=== PATIENT | female | born 1945 | race Caucasian/White ===

== ENCOUNTER 2017-07-18 23:32 | Inpatient (IN) | END 2017-07-26 14:32 | DRG 207 ==

== ENCOUNTER 2017-07-29 14:03 | Day surgery (SDC) | END 2017-07-30 00:24 ==

== ENCOUNTER 2017-08-26 09:07 | Day surgery (SDC) | END 2017-08-28 13:46 | disposition other institution (70) ==

== ENCOUNTER → 2017-09-01 | Day surgery (SDC) | END | disposition home or self-care (01) ==

== ENCOUNTER 2017-09-16 11:22 | Inpatient (IN) | END 2017-09-30 21:30 | DRG 335 ==

== ENCOUNTER 2017-11-26 23:53 | Inpatient (IN) | END 2017-12-17 16:18 | DRG 760 ==

== ENCOUNTER 2017-12-23 12:55 | Inpatient (IN) | END 2018-01-02 16:24 | DRG 870 ==

== ENCOUNTER 2018-05-06 13:48 | Inpatient (IN) | payer MEDICARE, BC, MEDICAID ==
[~2018-05-06] VITALS: Ht 167.6 cm; Wt 89.7 kg
[~2018-05-06 13:48] MED LIST: ACET325S PO; ALBU2.5V3 NEB; AMIO200T4 GTB; AMLO2.5T78 PO; ASC500 GTB; ATILIQ IV*; ATOR10TA65 PO; BETH25TA GTB; BISA-57 GTB; BUDE0.5A INHALATION; CHLO1TOW TP; CLON0.5T14 GTB; CLOT15CR62 TOP; DOCU50LI23 GTB; ESCI10TA48 GTB; FER325 GTB; FERR220S13 GTB; FURO40SO4 IV*; HYDR-4011 GTB; LANS30CA GTB; MEGE625O PO; METO25TA4 PO; MORP10SO GTB; MORP10SO PO; MUCO4 NEB; MULT-275 PO; NA P230E RC; NITR0.4T32 SL; NYST1POW22 TOPICAL; ONDA4SOL IV*; QUET100T32 GTB; SAN30GM TOP; SIME40DR35 GTB; VLP250480 GTB; ZINC220T GTB; [UNRECOGNIZED DRUG - CODE] IV*; [UNRECOGNIZED DRUG - OTHER] IV
[2018-05-06] MEDS ORDERED: SODIUM CHLORIDE 0.9% 1L BAG IV* STA (14:35)
[2018-05-06] MEDS ORDERED: CEFEPIME 2GM/50 ML (PMX) 50 ML IVPB STA (14:35)
[2018-05-06] MEDS ORDERED: VANCOMYCIN 1 GM (PMX) 250 ML IVPB ONE (15:00)
[2018-05-06] MEDS ORDERED: ASPI-903 GTB (16:37)
[2018-05-06] MEDS ORDERED: CLON-379 GTB (16:38)
[2018-05-06] MEDS ORDERED: VALP250S3 GTB (16:40)
[2018-05-06] MEDS ORDERED: FAMO20TA18 GTB (16:46)
[2018-05-06] MEDS ORDERED: IPRA3AMP29 INHALATION ×2 (16:48→16:49)
[2018-05-06] MEDS ORDERED: LIDO700A45 TP (16:50)
[2018-05-06] MEDS ORDERED: ATILIQ IV* (16:52)
[2018-05-06] MEDS ORDERED: MULT-105 GTB (16:53)
[2018-05-06] MEDS ORDERED: METO-448 GTB (16:53)
[2018-05-06] MEDS ORDERED: ONDA4SOL GTB (16:56)
[2018-05-06] MEDS ORDERED: EPOE200014 IJ (16:58)
[2018-05-06] MEDS ORDERED: PROT946L GTB (16:59)
[2018-05-06] MEDS ORDERED: QUET100T GTB (17:00)
[2018-05-06] MEDS ORDERED: ASC500 GTB (17:01)
[2018-05-06] MEDS ORDERED: DICL100G37 TOP (17:01)
[2018-05-06] MEDS ORDERED: ZINC220T GTB (17:03)
--- NOTE | 2018-05-06 17:53 | ERD ---
ER Documentation Chief Complaint Chief Complaint BIB private ambulance, kamlesh kaur; sent by PMD d/t abnormal BUN/crea/ HPI 73-year-old female brought to the emergency department by private ambulance from her care facility for evaluation of abnormal lab tests that included an elevated BUN and creatinine and abnormal urinalysis. Patient is essentially nonverbal and no further history is available. Transfer paper work indicates no further history. ROS All systems reviewed and are negative except as per history of present illness. Medications Home Meds Reported Medications Zinc Sulfate* (Zinc Sulfate*) 220 Mg Tablet, 220 MG GTB DAILY, TAB START DATE 05/04/18, END DATE 06/03/18 05/06/18 Diclofenac Sodium* (Voltaren* Gel) 1% -100 Gm Gel, 2 GM TOP TID, #1 TUB 05/06/18 Ascorbic Acid (Vitamin C) 500 Mg Tab, 500 MG GTB DAILY, TAB 05/06/18 Quetiapine Fumarate* (Seroquel*) 100 Mg Tablet, 600 MG GTB HS, #30 TAB 05/06/18 Protein Supplement (Promod) 946 Ml Liquid, 30 ML GTB BID 05/06/18 Epoetin Zen (Procrit) 20,000 Unit/1 Ml Vial, 18752 UNIT IJ Q TUE for FOR ANEMIA OF CKD, VIAL HOLD IFHGB IS EQUAL OR GREATER THAN 11 05/06/18 Ondansetron Hcl* (Ondansetron Hcl* Liq) 4 Mg/5 Ml Solution, 4 MG GTB Q6H PRN for NAUSEA AND/OR VOMITING, ML 05/06/18 Multivitamin with Minerals (Multivitamins with Minerals) 1 Each Tablet, 1 EACH GTB QAM, TAB 05/06/18 Metoprolol Tartrate* (Lopressor*) 25 Mg Tab, 25 MG GTB BID, #60 TAB HOLD FOR SBP<110 OR HR<60 05/06/18 Lorazepam* (Ativan* Intensol) 2 Mg/Ml Soln, 0.5 MG IV* Q6H PRN for ANXIETY, #1 BOTTLE START DATE 04/02/18, END DATE 06/01/18 05/06/18 Lidocaine (Lidocaine) 1 Each Adh..patch, 1 EACH TP Q12H 5% 05/06/18 Ipratropium-Albuterol (Ipratropium-Albuterol) 0.5-3 Mg/3 Ml Ampul.neb, 3 ML INHALATION Q6 PRN for BRONCHOSPASM, #30 VIAL 05/06/18 Ipratropium-Albuterol (Ipratropium-Albuterol) 0.5-3 Mg/3 Ml Ampul.neb, 3 ML INHALATION Q2H PRN for BRONCHOSPASM, #30 VIAL 05/06/18 Famotidine* (Famotidine*) 20 Mg Tablet, 20 MG GTB BID, #60 TAB 05/06/18 Valproic Acid* (Depakene*) 250 Mg/5 Ml Udc Syrup, 100 MG GTB QHS, ML 05/06/18 Clonidine Hcl* (Clonidine Hcl*) 0.1 Mg Tab, 0.1 MG GTB Q6 PRN for NEEDED, TAB FOR SBP>160 OR DBP>90 05/06/18 Aspirin* (Aspirin* Chew) 81 Mg Tab.chew, 81 MG GTB DAILY, TAB.CHEW 05/06/18 Discontinued Reported Medications Docusate Sodium* (Colace* Liq) 50 Mg/5 Ml Liquid, 100 MG GTB BID, EA 12/29/17 Na Phos,M-B/Na Phos,Di-Ba (Fleet Enema Extra) 230 Ml Enema, 230 ML RC PRN for CONSTIPATION, ENEMA 12/29/17 Bisacodyl* (Dulcolax*) 5 Mg Tablet.dr, 10 MG GTB DAILY PRN for CONSTIPATION, TAB 12/29/17 Docusate Sodium* (Colace* Liq) 50 Mg/5 Ml Liquid, 100 MG GTB BID, EA 12/29/17 Ferrous Sulfate* (Ferrous Sulfate*) 325 Mg Tabec, 330 MG GTB DAILY, TAB 12/29/17 Zinc Sulfate* (Zinc Sulfate*) 220 Mg Tablet, 220 MG GTB DAILY, TAB 12/29/17 Ascorbic Acid (Vitamin C) 500 Mg Tab, 500 MG GTB DAILY, TAB 12/29/17 Multivitamin with Minerals (Daily Vitamin Formula-Minerals) 1 Each Tablet, 1 EACH PO DAILY, TAB 12/29/17 Megestrol Acetate* (Megace ES*) 625 Mg/5 Ml Oral.susp, 400 MG PO DAILY, ML 12/29/17 Atorvastatin (Atorvastatin) 10 Mg Tablet, 20 MG PO QHS, #30 TAB 12/29/17 Amlodipine Besylate* (Amlodipine Besylate*) 2.5 Mg Tablet, 2.5 MG PO BID, #30 TAB HOLD FOR SBP < 110 OR HR < 60 12/29/17 Ondansetron Hcl* (Ondansetron Hcl* Liq) 4 Mg/5 Ml Solution, 4 MG IV* Q6H PRN for NAUSEA AND/OR VOMITING, ML 08/26/17 Morphine Sulfate* (Morphine* Liq) 10 Mg/5 Ml Solution, 6 MG GTB Q4H PRN for PAIN, ML 08/26/17 Morphine Sulfate* (Morphine* Liq) 10 Mg/5 Ml Solution, 3 MG PO Q4H PRN for PAIN, ML 08/26/17 Metoprolol Tartrate* (Lopressor*) 25 Mg Tablet, 25 MG PO BID, #60 TAB 08/26/17 Methylprednisolone Sod Succ (Solu-Medrol) 10 Mg/Ml Soln, 20 MG IV* DAILY 08/26/17 Lorazepam* (Ativan* Intensol) 2 Mg/Ml Soln, 0.5 MG IV* Q4H PRN for ANXIETY, #1 BOTTLE 08/26/17 Lansoprazole* (Lansoprazole*) 30 Mg Capsule.dr, 30 MG GTB BID, CAP 08/26/17 Hydrocodone/Acetaminophen (Ducor 5-325 Tablet) 1 Each Tablet, 1 EACH GTB Q4 PRN for PAIN, TAB 08/26/17 Furosemide* (Lasix* Liq) 40 Mg/4 Ml Solution, 40 MG IV* DAILY, #120 ML 08/26/17 Chlorhexidine Gluconate (Chlorhexidine Gluconate) 1 Each Towelette, 1 EACH TP PRN PRN for CENTRAL LINE, TOWELETTE 08/26/17 Bethanechol Chloride* (Bethanechol Chloride*) 25 Mg Tablet, 25 MG GTB TID, TAB 08/26/17 Acetylcysteine* (Mucomyst*) 4 Ml Soln, 2 ML NEB BID, EA 08/26/17 Valproic Acid* (Valproic Acid* Liq) 250 Mg/5 Ml Syrup, 1000 MG GTB QHS, ML 07/18/17 Simethicone ( GAS RELIEF) 40 Mg/0.6 Ml Drops.susp, 40 MG GTB Q4H 07/18/17 Quetiapine Fumarate* (Quetiapine Fumarate*) 100 Mg Tablet, 600 MG GTB HS, TAB 07/18/17 Nystatin (Nystatin Powder) 1 Each Powder.ea., 1 APPLIC TOPICAL DAILY, #1 BOTTLE 07/18/17 Nitroglycerin* (Nitroglycerin* SL) 0.4 Mg Tab.subl, 0.4 MG SL Q5MIN PRN for CHEST PAIN, BOTTLE 07/18/17 Hydralazine Hcl* (Apresoline* Pediatric IV Syringe) 1 Mg/Ml Soln, 5 MG IV Q4H PRN for NEEDED, EA 07/18/17 Ferrous Sulfate* (Ferrous Sulfate*) 220 Mg/5 Ml Solution, 300 MG GTB BID, ML 07/18/17 Escitalopram Oxalate* (Escitalopram Oxalate*) 10 Mg Tablet, 10 MG GTB DAILY, #30 TAB 07/18/17 Collagenase* (Santyl*) 30 Gm Oint..gm., 1 APPLIC TOP .SOILED PRN for SOILED, #1 TUB 07/18/17 Clonazepam* (Clonazepam*) 0.5 Mg Tablet, 0.25 MG GTB BID, TAB 07/18/17 Budesonide* (Budesonide*) 0.5 Mg/2 Ml Ampul.neb, 0.5 MG INHALATION Q12H, AMP 07/18/17 Betamethasone-Clotrimazole* (Lotrisone*) 15 Gm Cr, 1 APPLIC TOP BID, TUB 07/18/17 Amiodarone Hcl* (Amiodarone Hcl*) 200 Mg Tablet, 100 MG GTB DAILY, #30 TAB HOLD IF SBP <110 OR HR < 60 07/18/17 Albuterol Sulfate* (Albuterol Sulfate* Neb) 0.083%-3 Ml Neb, 2.5 MG NEB NEEDED PRN for WHEEZING AND SOB, #30 VIAL 07/18/17 Albuterol Sulfate* (Albuterol Sulfate* Neb) 0.083%-3 Ml Neb, 2.5 MG NEB Q4H PRN for WHEEZING AND SOB, #30 VIAL 07/18/17 Acetaminophen* (Acetaminophen* Susp) 325 Mg/10.15 Ml Solution, 650 MG PO Q4H PRN for NEEDED, ML 07/18/17 Allergies Allergies: Coded Allergies: shellfish derived (Unverified Allergy, Unknown, 05/06/18) PMhx/Soc History of Surgery: Yes (unknown) Anesthesia Reaction: No Hx Alcohol Use: No (unknown) Hx Substance Use: No (unknown) Hx Tobacco Use: No (unknown) Smoking Status: Unknown if ever smoked FmHx Unknown at this time Physical Exam Vitals Vital Signs Date Temp Pulse Resp B/P (MAP) Pulse Ox O2 O2 Flow FiO2 Time Delivery Rate 05/06/18 107 25 100/48 100 Nasal 4.0 17:09 (65) Cannula 05/06/18 Nasal 4 14:59 Cannula 05/06/18 98.7 95 20 111/55 98 14:26 (73) Physical Exam General: Frail, bed bound, ill appearing HEENT: Mucous membranes dry, sclera nonicteric Neck: Tracheostomy ostomy patent. No inflammatory changes noted. No JVD. Cardiovascular: Regular rate and rhythm, no murmurs rubs or gallops. Lungs: Transmission of upper airway sounds. Abdomen: Soft with G-tube appreciated. Nontender to palpation. Bowel sounds noted. : Diaper in place and incontinent. Extremities: Atrophic but atraumatic with no edema, cyanosis or clubbing. Neurologic: Motor strength diminished in all 4 extremities but otherwise nonfocal. Patient is essentially nonverbal with no significant insight Skin: Skin breakdown noted per nursing note. Result Diagram: 05/06/18 1449 05/06/18 1449 Results 24 hrs Laboratory Tests Test 05/06/18 14:46 05/06/18 14:49 POC Venous Lactate 0.8 mmol/L White Blood Count 12.5 10^3/ul Red Blood Count 3.14 10^6/ul Hemoglobin 10.8 g/dl Hematocrit 32.7 % Mean Corpuscular Volume 104.1 fl Mean Corpuscular Hemoglobin 34.4 pg Mean Corpuscular Hemoglobin Concent 33.0 g/dl Red Cell Distribution Width 13.5 % Platelet Count 287 10^3/UL Mean Platelet Volume 10.0 fl Immature Granulocytes % 1.000 % Neutrophils % 87.2 % Lymphocytes % 3.2 % Monocytes % 7.5 % Eosinophils % 0.9 % Basophils % 0.2 % Nucleated Red Blood Cells % 0.0 /100WBC Immature Granulocytes # 0.120 10^3/ul Neutrophils # 10.9 10^3/ul Lymphocytes # 0.4 10^3/ul Monocytes # 0.9 10^3/ul Eosinophils # 0.1 10^3/ul Basophils # 0.0 10^3/ul Nucleated Red Blood Cells # 0.0 10^3/ul Prothrombin Time 13.7 Sec Prothrombin Time Ratio 1.1 INR International Normalized Ratio 1.04 Activated Partial Thromboplast Time 43.4 Sec Sodium Level 122 mmol/L Potassium Level 5.2 mmol/L Chloride Level 89 mmol/L Carbon Dioxide Level 13 mmol/L Anion Gap 20 Blood Urea Nitrogen 172 mg/dl Creatinine 3.05 mg/dl Est Glomerular Filtrat Rate mL/min mL/min Glucose Level 84 mg/dl Calcium Level 9.6 mg/dl Total Bilirubin 0.0 mg/dl Direct Bilirubin 0.00 mg/dl Indirect Bilirubin 0.0 mg/dl Aspartate Amino Transf (AST/SGOT) 43 IU/L Alanine Aminotransferase (ALT/SGPT) < 6 IU/L Alkaline Phosphatase 145 IU/L Troponin I 0.058 ng/ml Total Protein 7.1 g/dl Albumin 3.1 g/dl Globulin 4.00 g/dl Albumin/Globulin Ratio 0.77 Current Medications Medications Dose Sig/[place] Start Time Status Last (Trade) Ordered Route PRN Stop Time Admin Dose Reason Admin Sodium 2,550 ml BOLUS OVER 2 05/06/18 DC 05/06/18 Chloride HOURS STAT 14:35 14:49 (NS) IV* 05/06/18 14:37 Cefepime HCl 50 ml @ ONCE STAT 05/06/18 DC 05/06/18 100 mls/hr IVPB 14:35 14:49 05/06/18 15:04 Vancomycin 250 ml @ ONCE ONCE 05/06/18 DC 05/06/18 HCl 125 mls/hr IVPB 15:00 15:31 05/06/18 16:59 Procedures/MDM Patient was taken to a room, seen and evaluated. Comfort measures were initiated. A code sepsis was initiated. Diagnostic tests were ordered and reviewed. 3 LEAD RHYTHM STRIP: Sinus tachycardia EK lead EKG reviewed by myself: Sinus tachycardia Normal [place] and intervals No ST elevation, depression, or T wave inversion Impression: Tachycardic without obvious ischemic changes RADIOLOGY: Reviewed with the radiologist CONSULTATION: Dr. Eisenberg was notified for admission REEVALUATION: 1540: Diagnostic tests were appreciated and arrangements were made for admission. Garza placed drained thick purulent fluid. MEDICAL DECISION MAKIN-year-old female presents the emergency department in acute renal failure secondary to what appears to be a urosepsis. Patient's lactate is less than 2, but she shows evidence of significant dehydration and will require admission to the hospital for hydration, antibiotics and further supportive care. Sepsis Documentation: Infectious source: urinary tract infection End organ damage indicated by: low blood pressure Cr > 2.0 SEPSIS MANAGEMENT Time of recognition of sepsis: Upon arrival. Time of recognition of severe sepsis: No severe sepsis at this time. Time of recognition of septic shock: No septic shock at this time. 3 HOUR BUNDLE Blood cultures x 2 before broad-spectrum antibiotics: Yes 30 ml/kg NS bolus completed Initial lactate noted Repeat lactate pending SEPTIC SHOCK ASSESSMENT: No lactic acid > 4.0 No persistent hypotension (SBP < 90 or 40 mmHg drop, MAP < 65) despite 30 mL/kg IV fluid bolus VOLUME REASSESSMENT FOR SEPTIC SHOCK: Reevaluation Time: 1745 Vital signs noted per nursing note Heart regular rate & rhythm Lungs no crackles Skin warm & dry Cap Refill less than 2 seconds Peripheral pulses radially present PERSISTENT HYPOTENSION TREATMENT: Comfort care no Central line: PICC requests Vasopressor started not required as blood pressure initially seemed responsive to IV fluid. This will be reassessed. CRITICAL CARE Critical care time 35 minutes Emergent fluid management while maintaining close respiratory support. Provisio n of immediate and broad-spectrum antibiotic therapy. Simultaneous assessment for possible sources in order to direct targeted therapy. Consideration for invasive and chemical support to prevent cardiopulmonary collapse. Critical care time is independent of procedures performed. Departure Diagnosis: Primary Impression: Severe sepsis Additional Impressions: Renal failure UTI (urinary tract infection) Condition: Serious ALLYSSA MARTINEZ May 06, 2018 17:52
[2018-05-06] MEDS ORDERED: LIDOCAINE 1% (MPF) 5 ML VIAL SC ONE (18:00)
[2018-05-06] MEDS ORDERED: SOD CHLORIDE 0.9% 1,000 ML IV ONE (18:00)
[2018-05-06 23:00] VITALS: BMI 31.3
[2018-05-06 23:15] VITALS: PULSE 118; PULSE 119; RESP 29
[2018-05-06 23:30] VITALS: PULSE 115; RESP 19
[2018-05-06] MEDS ORDERED: ONDANSETRON (2 MG/2.5 ML PO SYG) GTB PRN (23:30)
[2018-05-06] MEDS ORDERED: LORAZEPAM (2 MG/ML PO SYG) PEG PRN (23:30)
[2018-05-06] MEDS ORDERED: EPOETIN ALFA 20000 UNIT IJ SCH (23:30)
[2018-05-06 23:45] VITALS: PULSE 114; RESP 21
[2018-05-07] VITALS (62 sets, daily range): BP systolic 71–249; BP diastolic 34–209; PULSE 106–170; RESP 16–30
[2018-05-07] MEDS ORDERED: NORepinephrine 8MG/250 ML (PMX 250 ML IV SCH
[2018-05-07] MEDS ORDERED: ONDANSETRON 4 MG TAB GTB PRN (00:15)
[2018-05-07] MEDS: SOD CHLORIDE 0.9% 1,000 ML IV SCH ×4 (00:24→22:01)
--- NOTE | 2018-05-07 01:28 | HP ---
DATE OF ADMISSION: 05/06/2018 CHIEF COMPLAINT: Generalized weakness and lethargy. HISTORY OF PRESENT ILLNESS: The patient is a 73-year-old female well known to me from previous several admissions. The patient has a complex medical history including history of COPD, respiratory failure, who was recently decannulated at [facility] respiratory unit and was doing reasonably well; however, the patient was noted to be increasingly sleepy as well as had generalized weakness. The patient was less interactive. The patient was sent to [facility] ER where she was noted to have sodium of 122, BUN was 172, creatinine of 3. The patient's baseline sodium back in 01/2019 was 139. BUN was 42, creatinine was 1.3. The patient recently had acute on chronic kidney disease for which she did receive IV fluid. The patient did not have any vomiting, no reported fever or chills. The patient was hypertensive and tachycardic in ER, and received IV fluid bolus. The patient's lactic acid, however, came back as only 0.7. The patient's urine was cloudy and apparently has pyuria. The patient also had a white count of 12.5 with 87% neutrophil. The patient is being admitted for further evaluation and management. The patient initially was lethargic; however, her mental status improved with IV fluid and she is now back to her baseline mental status. The patient is awake, alert, and follows simple commands. No reported abdominal pain. No reported vomiting. No reported recent seizures. There is no significant leg edema. The patient does have generalized weakness and spends most of time in her bed. No reported agitation. The patient, in addition to above, also has history of paroxysmal atrial fibrillation. The patient also had a history of positive gastrointestinal bleed with a high CEA, and had colonoscopy later in 2018. There was no colon mass. The patient did have multiple diverticula. The rest of the history is unremarkable. PAST MEDICAL HISTORY: Past medical history is extensive. The patient back in July 2017, had a left lower extremity large hematoma and underwent excisional debridement and evacuation of large hematoma. The patient also has history of recurrent HCAP and possible history of interstitial lung disease. The patient is also status post exploratory laparotomy by Dr. Villatoro for torsion of small bowel around dense adhesions causing multiple obstructive points. 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 The patient, however, declined surgery at that time. The patient's subsequent echocardiogram has not revealed any thrombus. The patient did receive several months of Voriconazole at that time. The patient also had right toes dry gangrene. The patient's medical history is also positive for paroxysmal atrial fibrillation and history of diastolic congestive heart failure. The patient's arterial studies last year only revealed mild stenosis. PAST SURGICAL HISTORY: The patient has history of tracheostomy and G-tube placement and some of past surgical history had been explained in past medical history. SOCIAL HISTORY: Ex-smoker. ALLERGIES: SHELLFISH. FAMILY HISTORY: Noncontributory for patient's condition. PHYSICAL EXAMINATION GENERAL: The patient currently awake and responsive with generalized weakness. VITAL SIGNS: At the time of presentation, temperature 98.7, pulse 90, respirations 20, blood pressure 111/55, O2 saturation 97% on 4 liters on nasal cannula; however, during her stay in ER, her blood pressure was down to 77 at one time. HEENT: Atraumatic, normocephalic. Conjunctivae and lids are normal. Oropharynx clear. Nose and ears normal. NECK: Supple. No mass or thyromegaly. CHEST: Fairly clear. No use of accessory muscles. CARDIOVASCULAR: S1, S2 normal. Regular rate and rhythm. ABDOMEN: Soft, nondistended and nontender. G-tube in place. EXTREMITIES: No leg edema. NEUROLOGIC: The patient is awake, alert, follows simple commands. Has weakness in all extremities. SKIN: Without acute rash. The patient does have some perineal excoriation as well as right foot excoriation. LABORATORY DATA: Laboratories done today, WBC 12.5, hemoglobin 10.8, platelet 287. Chemistry: Sodium 122, potassium 5.2, BUN 172, creatinine 3, glucose 84. calcium 9.6, AST 43, ALT less than 6, alkaline phosphatase 145, albumin 3.1. IMPRESSION AND PLAN: 1. Septic shock likely from UTI : The patient will be admitted in ICU. The patient has received more than 3 liters of IV fluid in the ER. We will continue normal saline at 125cc an hour. The patient will be started on vasopressor if blood pressure remains low. The patient has received IV vancomycin and cefepime in the ER. We will continue cefepime for now until urine c/s is back . Will also request Dr. gorman for ID consult 2. Acute on chronic kidney disease. We will continue trial of IV fluids. Nephrology consult from has been requested 3. Hyponatremia. Continue normal saline. Hold off on diagnostic studies for low Na as patient has received more than 3 L of NS. Nephro input in pending 4. Will also obtain urine and serum osmolality and urinary sodium, although it does look like due to acute on chronic kidney injury. 5. Chronic obstructive pulmonary disease. Continue breathing treatment. 6. Bipolar disorder. Continue Seroquel. I will reduce the dose due to worsening renal failure. 7. History of upper GI bleed back in December 2017, status post EGD. We will continue PPI. 8. Paroxysmal atrial fibrillation. The patient has been in sinus rhythm. No anticoagulant or antiplatelet agent due to history of recent upper GI bleed. Continue baby aspirin along with the Protonix. 9. Dysphagia. Continue tube feeding. 10. History of anterior pelvic wall abscess, status post surgery. 11. History of critical care polyneuropathy/myopathy. The patient will resume PT, OT once she is medically stable. 12. Anemia of chronic kidney disease. Will continue Procrit and will order followup labs. 13. Diastolic heart failure, currently compensated. Further recommendation will depend on patient's hospital course and recommendation from consultants. We will continue to follow. Dictated By: ROLAND COX/TABATHA Conf#: [id number] DID#: [id number]
[2018-05-07] MEDS: ALBUTEROL/IPRATROPIUM (NEB) 3 ML AMP HHN SCH ×5 (01:46→20:11)
[2018-05-07] MEDS ORDERED: PANTOPRAZOLE (EC) 40 MG TAB PO SCH (06:00)
[2018-05-07] MEDS: LANSOPRAZOLE 30 MG CAP GTB SCH (06:09)
[2018-05-07] MEDS: ASCORBIC ACID 500 MG TAB GTB SCH (08:51)
[2018-05-07] MEDS: CEFEPIME 1GM/50 ML (PMX) 50 ML IVPB SCH ×2 (08:52→20:38)
[2018-05-07] MEDS: ASPIRIN 81 MG TAB GTB SCH (08:52)
[2018-05-07] MEDS: ZINC SULFATE 220 MG CAP GTB SCH (08:52)
[2018-05-07] MEDS: MULTIVITAMINS 30 ML CUP GTB SCH (08:52)
--- NOTE | 2018-05-07 09:47 | CONS ---
Assessment/Plan Assessment/Plan Hospital Course (Demo Recall) kindly asked to consult. will be in shortly. ty Consultation Date/Type/Reason Admit Date/Time May 06, 2018 at 17:38 Date of Consultation: May 07, 2018 Date/Time of Note DATE: 05/07/18 TIME: 09:46 Past Medical History Home Meds Reported Medications Zinc Sulfate* (Zinc Sulfate*) 220 Mg Tablet, 220 MG GTB DAILY, TAB START DATE 05/04/18, END DATE 06/03/18 05/06/18 Diclofenac Sodium* (Voltaren* Gel) 1% -100 Gm Gel, 2 GM TOP TID, #1 TUB 05/06/18 Ascorbic Acid (Vitamin C) 500 Mg Tab, 500 MG GTB DAILY, TAB 05/06/18 Quetiapine Fumarate* (Seroquel*) 100 Mg Tablet, 600 MG GTB HS, #30 TAB 05/06/18 Protein Supplement (Promod) 946 Ml Liquid, 30 ML GTB BID 05/06/18 Epoetin Zen (Procrit) 20,000 Unit/1 Ml Vial, 05803 UNIT IJ Q TUE for FOR ANEMIA OF CKD, VIAL HOLD IFHGB IS EQUAL OR GREATER THAN 11 05/06/18 Ondansetron Hcl* (Ondansetron Hcl* Liq) 4 Mg/5 Ml Solution, 4 MG GTB Q6H PRN for NAUSEA AND/OR VOMITING, ML 05/06/18 Multivitamin with Minerals (Multivitamins with Minerals) 1 Each Tablet, 1 EACH GTB QAM, TAB 05/06/18 Metoprolol Tartrate* (Lopressor*) 25 Mg Tab, 25 MG GTB BID, #60 TAB HOLD FOR SBP<110 OR HR<60 05/06/18 Lorazepam* (Ativan* Intensol) 2 Mg/Ml Soln, 0.5 MG IV* Q6H PRN for ANXIETY, #1 BOTTLE START DATE 04/02/18, END DATE 06/01/18 05/06/18 Lidocaine (Lidocaine) 1 Each Adh..patch, 1 EACH TP Q12H 5% 05/06/18 Ipratropium-Albuterol (Ipratropium-Albuterol) 0.5-3 Mg/3 Ml Ampul.neb, 3 ML INHALATION Q6 PRN for BRONCHOSPASM, #30 VIAL 05/06/18 Ipratropium-Albuterol (Ipratropium-Albuterol) 0.5-3 Mg/3 Ml Ampul.neb, 3 ML INHALATION Q2H PRN for BRONCHOSPASM, #30 VIAL 05/06/18 Famotidine* (Famotidine*) 20 Mg Tablet, 20 MG GTB BID, #60 TAB 05/06/18 Valproic Acid* (Depakene*) 250 Mg/5 Ml Udc Syrup, 100 MG GTB QHS, ML 05/06/18 Clonidine Hcl* (Clonidine Hcl*) 0.1 Mg Tab, 0.1 MG GTB Q6 PRN for NEEDED, TAB FOR SBP>160 OR DBP>90 05/06/18 Aspirin* (Aspirin* Chew) 81 Mg Tab.chew, 81 MG GTB DAILY, TAB.CHEW 05/06/18 Discontinued Reported Medications Docusate Sodium* (Colace* Liq) 50 Mg/5 Ml Liquid, 100 MG GTB BID, EA 12/29/17 Na Phos,M-B/Na Phos,Di-Ba (Fleet Enema Extra) 230 Ml Enema, 230 ML RC PRN for CONSTIPATION, ENEMA 12/29/17 Bisacodyl* (Dulcolax*) 5 Mg Tablet.dr, 10 MG GTB DAILY PRN for CONSTIPATION, TAB 12/29/17 Docusate Sodium* (Colace* Liq) 50 Mg/5 Ml Liquid, 100 MG GTB BID, EA 12/29/17 Ferrous Sulfate* (Ferrous Sulfate*) 325 Mg Tabec, 330 MG GTB DAILY, TAB 12/29/17 Zinc Sulfate* (Zinc Sulfate*) 220 Mg Tablet, 220 MG GTB DAILY, TAB 12/29/17 Ascorbic Acid (Vitamin C) 500 Mg Tab, 500 MG GTB DAILY, TAB 12/29/17 Multivitamin with Minerals (Daily Vitamin Formula-Minerals) 1 Each Tablet, 1 EACH PO DAILY, TAB 12/29/17 Megestrol Acetate* (Megace ES*) 625 Mg/5 Ml Oral.susp, 400 MG PO DAILY, ML 12/29/17 Atorvastatin (Atorvastatin) 10 Mg Tablet, 20 MG PO QHS, #30 TAB 12/29/17 Amlodipine Besylate* (Amlodipine Besylate*) 2.5 Mg Tablet, 2.5 MG PO BID, #30 TAB HOLD FOR SBP < 110 OR HR < 60 12/29/17 Ondansetron Hcl* (Ondansetron Hcl* Liq) 4 Mg/5 Ml Solution, 4 MG IV* Q6H PRN for NAUSEA AND/OR VOMITING, ML 08/26/17 Morphine Sulfate* (Morphine* Liq) 10 Mg/5 Ml Solution, 6 MG GTB Q4H PRN for PAIN, ML 08/26/17 Morphine Sulfate* (Morphine* Liq) 10 Mg/5 Ml Solution, 3 MG PO Q4H PRN for PAIN, ML 08/26/17 Metoprolol Tartrate* (Lopressor*) 25 Mg Tablet, 25 MG PO BID, #60 TAB 08/26/17 Methylprednisolone Sod Succ (Solu-Medrol) 10 Mg/Ml Soln, 20 MG IV* DAILY 08/26/17 Lorazepam* (Ativan* Intensol) 2 Mg/Ml Soln, 0.5 MG IV* Q4H PRN for ANXIETY, #1 BOTTLE 08/26/17 Lansoprazole* (Lansoprazole*) 30 Mg Capsule.dr, 30 MG GTB BID, CAP 08/26/17 Hydrocodone/Acetaminophen ([place] 5-325 Tablet) 1 Each Tablet, 1 EACH GTB Q4 PRN for PAIN, TAB 08/26/17 Furosemide* (Lasix* Liq) 40 Mg/4 Ml Solution, 40 MG IV* DAILY, #120 ML 08/26/17 Chlorhexidine Gluconate (Chlorhexidine Gluconate) 1 Each [place], 1 EACH TP PRN PRN for CENTRAL LINE, TOWELETTE 08/26/17 Bethanechol Chloride* (Bethanechol Chloride*) 25 Mg Tablet, 25 MG GTB TID, TAB 08/26/17 Acetylcysteine* (Mucomyst*) 4 Ml Soln, 2 ML NEB BID, EA 08/26/17 Valproic Acid* (Valproic Acid* Liq) 250 Mg/5 Ml Syrup, 1000 MG GTB QHS, ML 07/18/17 Simethicone (INFANT GAS RELIEF) 40 Mg/0.6 Ml Drops.susp, 40 MG GTB Q4H 07/18/17 Quetiapine Fumarate* (Quetiapine Fumarate*) 100 Mg Tablet, 600 MG GTB HS, TAB 07/18/17 Nystatin (Nystatin Powder) 1 Each Powder.ea., 1 APPLIC TOPICAL DAILY, #1 BOTTLE 07/18/17 Nitroglycerin* (Nitroglycerin* SL) 0.4 Mg Tab.subl, 0.4 MG SL Q5MIN PRN for CHEST PAIN, BOTTLE 07/18/17 Hydralazine Hcl* (Apresoline* Pediatric IV Syringe) 1 Mg/Ml Soln, 5 MG IV Q4H PRN for NEEDED, EA 07/18/17 Ferrous Sulfate* (Ferrous Sulfate*) 220 Mg/5 Ml Solution, 300 MG GTB BID, ML 07/18/17 Escitalopram Oxalate* (Escitalopram Oxalate*) 10 Mg Tablet, 10 MG GTB DAILY, #30 TAB 07/18/17 Collagenase* (Santyl*) 30 Gm Oint..gm., 1 APPLIC TOP .SOILED PRN for SOILED, #1 TUB 07/18/17 Clonazepam* (Clonazepam*) 0.5 Mg Tablet, 0.25 MG GTB BID, TAB 07/18/17 Budesonide* (Budesonide*) 0.5 Mg/2 Ml Ampul.neb, 0.5 MG INHALATION Q12H, AMP 07/18/17 Betamethasone-Clotrimazole* (Lotrisone*) 15 Gm Cr, 1 APPLIC TOP BID, TUB 07/18/17 Amiodarone Hcl* (Amiodarone Hcl*) 200 Mg Tablet, 100 MG GTB DAILY, #30 TAB HOLD IF SBP <110 OR HR < 60 07/18/17 Albuterol Sulfate* (Albuterol Sulfate* Neb) 0.083%-3 Ml Neb, 2.5 MG NEB NE EDED PRN for WHEEZING AND SOB, #30 VIAL 07/18/17 Albuterol Sulfate* (Albuterol Sulfate* Neb) 0.083%-3 Ml Neb, 2.5 MG NEB Q4H PRN for WHEEZING AND SOB, #30 VIAL 07/18/17 Acetaminophen* (Acetaminophen* Susp) 325 Mg/10.15 Ml Solution, 650 MG PO Q4H PRN for NEEDED, ML 07/18/17 Medications Current Medications IV Flush (NS 10 ml) 10 ml PRN IV ; Start 05/06/18 at 20:30 Cefepime HCl 50 ml @ 100 mls/hr Q12 IVPB Last administered on 05/07/18at 08:52; Admin Dose 100 MLS/HR; Start 05/07/18 at 09:00 Sodium Chloride 1,000 ml @ 125 mls/hr Q8H IV Last administered on 05/07/18at 07:22; Admin Dose 125 MLS/HR; Start 05/06/18 at 23:30 Ascorbic Acid (Vitamin C) 500 mg DAILY GTB Last administered on 05/07/18at 08:51; Admin Dose 500 MG; Start 05/07/18 at 09:00 Aspirin (Aspirin) 81 mg DAILY GTB Last administered on 05/07/18 08:52; Admin Dose 81 MG; Start 05/07/18 at 09:00 Albuterol/ Ipratropium (Duoneb) 3 ml Q2H RESP THERAPY PRN HHN SHORTNESS OF BREATH; Start 05/06/18 at 23:30 Albuterol/ Ipratropium (Duoneb) 3 ml Q6H RESP THERAPY HHN Last administered on 05/07/18at 08:26; Admin Dose 3 ML; Start 05/07/18 at 02:00 Lorazepam (Ativan Intensol) 0.5 mg Q6H PRN PEG ANXIETY; Start 05/06/18 at 23:30 Quetiapine Fumarate (Seroquel) 300 mg HS GTB ; Start 05/07/18 at 21:00 Valproate Sodium (Depakene Liquid Cup) 100 mg QHS GTB ; Start 05/07/18 at 21:00 Zinc Sulfate (Zinc Sulfate) 220 mg DAILY GTB Last administered on 05/07/18at 08:52; Admin Dose 220 MG; Start 05/07/18 at 09:00 Norepinephrine 250 ml @ 1.875 mls/ hr TITRATE IV Last administered on 05/07/18at 00:50; Admin Dose 3.75 MLS/HR; Start 05/07/18 at 00:00 Lansoprazole (Prevacid) 30 mg DAILY@06 GTB Last administered on 05/07/18at 06:09; Admin Dose 30 MG; Start 05/07/18 at 06:00 Ondansetron HCl (Zofran Tab) 4 mg Q6H PRN GTB NAUSEA AND/OR VOMITING; Start 05/07/18 at 00:15 Multivitamins (Multivitamin) 30 ml DAILY GTB Last administered on 05/07/18at 08:52; Admin Dose 30 ML; Start 05/07/18 at 09:00 Epoetin Zen (Epogen (Esrd)) 20,000 units Tu@1700 SC ; Start 05/12/18 at 17:00 Allergies: Coded Allergies: shellfish derived (Unverified Allergy, Unknown, 05/06/18) Past Surgical History Past Surgical Hx: endoscopy, other Social History Smoking Status: Unknown if ever smoked Exam/Review of Systems Exam Vitals Vital Signs Date Temp Pulse Resp B/P (MAP) Pulse Ox O2 O2 Flow FiO2 Time Delivery Rate 05/07/18 118 19 117/41 98 09:15 (66) 05/07/18 Nasal 09:00 Cannula 05/07/18 3.0 08:26 05/07/18 99.8 08:00 Intake and Output 05/06/18 05/06/18 05/07/18 1515:00 23:00 07:00 IntakeIntake Total 972.50 ml OutputOutput Total 800 ml BalanceBalance 172.50 ml Results Result Diagram: 05/07/18 0430 05/07/18 0430 Results 24hrs Laboratory Tests Test 05/06/18 14:46 05/06/18 14:49 05/06/18 17:28 05/06/18 17:56 POC Venous Lactate 0.8 1.6 White Blood Count 12.5 #H Red Blood Count 3.14 L Hemoglobin 10.8 L Hematocrit 32.7 L Mean Corpuscular 104.1 H Volume Mean Corpuscular 34.4 H Hemoglobin Mean Corpuscular 33.0 Hemoglobin Concent Red Cell 13.5 # Distribution Width Platelet Count 287 Mean Platelet Volume 10.0 Immature 1.000 H Granulocytes % Neutrophils % 87.2 H Lymphocytes % 3.2 L Monocytes % 7.5 Eosinophils % 0.9 Basophils % 0.2 Nucleated Red Blood 0.0 Cells % Immature 0.120 H Granulocytes # Neutrophils # 10.9 H Lymphocytes # 0.4 L Monocytes # 0.9 Eosinophils # 0.1 Basophils # 0.0 Nucleated Red Blood 0.0 Cells # Prothrombin Time 13.7 Prothrombin Time 1.1 Ratio INR International 1.04 Normalized Ratio Activated 43.4 H Partial Thromboplast Time Sodium Level 122 L Potassium Level 5.2 H Chloride Level 89 L Carbon Dioxide Level 13 L Anion Gap 20 H Blood Urea Nitrogen 172 H Creatinine 3.05 H Est Glomerular Filtrat Rate mL/min Glucose Level 84 Calcium Level 9.6 Total Bilirubin 0.0 L Direct Bilirubin 0.00 Indirect Bilirubin 0.0 Aspartate Amino 43 Transf (AST/SGOT) Alanine < 6 L Aminotransferase (AL T/SGPT) Alkaline Phosphatase 145 H Troponin I 0.058 Total Protein 7.1 Albumin 3.1 L Globulin 4.00 H Albumin/Globulin 0.77 Ratio Urine Color YELLOW Urine Clarity TURBID A Urine pH 6.0 Urine Specific 1.009 [place] Urine Ketones NEGATIVE Urine Nitrite NEGATIVE Urine Bilirubin NEGATIVE Urine Urobilinogen NEGATIVE Urine Leukocyte 3+ H Esterase Urine Microscopic 24 H RBC Urine Microscopic > 182 H WBC Urine Squamous FEW Epithelial Cells Urine Bacteria MANY A Urine Hemoglobin 2+ H Urine Glucose NEGATIVE Urine Total Protein 2+ H Test 05/06/18 21:56 05/07/18 04:30 Lactic Acid Level 0.7 White Blood Count 16.9 #H Red Blood Count 2.73 L Hemoglobin 9.3 L Hematocrit 28.7 L Mean Corpuscular 105.1 H Volume Mean Corpuscular 34.1 H Hemoglobin Mean Corpuscular 32.4 Hemoglobin Concent Red Cell 13.4 Distribution Width Platelet Count 290 Mean Platelet Volume 10.0 Immature 0.500 H Granulocytes % Neutrophils % Segmented 66 Neutrophils % (Manual) Band Neutrophils % 24 H (Manual) Lymphocytes % Lymphocytes % 2 L (Manual) Monocytes % Monocytes % (Manual) 6 Eosinophils % Eosinophils % 2 (Manual) Basophils % Nucleated Red Blood 0.0 Cells % Immature 0.090 H Granulocytes # Neutrophils # Neutrophils # 11.8 H (Manual) Band Neutrophils # 4.0 H Lymphocytes (Manual) 0.3 L Lymphocytes # Monocytes # Monocytes # (Manual) 1.0 H Eosinophils # Basophils # Nucleated Red Blood Cells # Platelet Estimate NORMAL Polychromasia 1+ Anisocytosis 1+ Macrocytosis 1+ Spherocytes 1+ Sodium Level 130 L Potassium Level 3.8 Chloride Level 99 # Carbon Dioxide Level 13 L Anion Gap 18 H Blood Urea Nitrogen 147 H Creatinine 2.90 H Est Glomerular Filtrat Rate mL/min Glucose Level 60 #L Calcium Level 8.9 Medications Medication Current Medications IV Flush (NS 10 ml) 10 ml PRN IV ; Start 05/06/18 at 20:30 Cefepime HCl 50 ml @ 100 mls/hr Q12 IVPB Last administered on 05/07/18at 08:52; Admin Dose 100 MLS/HR; Start 05/07/18 at 09:00 Sodium Chloride 1,000 ml @ 125 mls/hr Q8H IV Last administered on 05/07/18at 07:22; Admin Dose 125 MLS/HR; Start 05/06/18 at 23:30 Ascorbic Acid (Vitamin C) 500 mg DAILY GTB Last administered on 05/07/18at 08:51; Admin Dose 500 MG; Start 05/07/18 at 09:00 Aspirin (Aspirin) 81 mg DAILY GTB Last administered on 05/07/18 08:52; Admin Dose 81 MG; Start 05/07/18 at 09:00 Albuterol/ Ipratropium (Duoneb) 3 ml Q2H RESP THERAPY PRN HHN SHORTNESS OF BREATH; Start 05/06/18 at 23:30 Albuterol/ Ipratropium (Duoneb) 3 ml Q6H RESP THERAPY HHN Last administered on 05/07/18at 08:26; Admin Dose 3 ML; Start 05/07/18 at 02:00 Lorazepam (Ativan Intensol) 0.5 mg Q6H PRN PEG ANXIETY; Start 05/06/18 at 23:30 Quetiapine Fumarate (Seroquel) 300 mg HS GTB ; Start 05/07/18 at 21:00 Valproate Sodium (Depakene Liquid Cup) 100 mg QHS GTB ; Start 05/07/18 at 21:00 Zinc Sulfate (Zinc Sulfate) 220 mg DAILY GTB Last administered on 05/07/18at 08:52; Admin Dose 220 MG; Start 05/07/18 at 09:00 Norepinephrine 250 ml @ 1.875 mls/ hr TITRATE IV Last administered on 05/07/18at 00:50; Admin Dose 3.75 MLS/HR; Start 05/07/18 at 00:00 Lansoprazole (Prevacid) 30 mg DAILY@06 GTB Last administered on 05/07/18at 06:09; Admin Dose 30 MG; Start 05/07/18 at 06:00 Ondansetron HCl (Zofran Tab) 4 mg Q6H PRN GTB NAUSEA AND/OR VOMITING; Start 05/07/18 at 00:15 Multivitamins (Multivitamin) 30 ml DAILY GTB Last administered on 05/07/18at 08:52; Admin Dose 30 ML; Start 05/07/18 at 09:00 Epoetin Zen (Epogen (Esrd)) 20,000 units Tu@1700 SC ; Start 05/12/18 at 17:00 MANN VALDEZ MD May 07, 2018 09:47
[2018-05-07] MEDS ORDERED: NA BICARBONATE 8.4% 50 ML SYG IV STA (11:18)
--- NOTE | 2018-05-07 13:03 | CONS ---
Assessment/Plan Assessment/Plan Hospital Course (Demo Recall) a: 1. Sepsis 2/2 to UTI 2. AMS likely metabolic 3. s/p resp failure 4. recently decannulated pmh:sepsis, SIRS, pulmonary - s/p SIRS from UGIB; Pt's WBC level improved with hydration and without antibiotic, improved - s/p pneumonia vs. colonization of the airway by pseudomonas and ESBL+klebsiella - h/o possible, recurrent HCAP due to pseudomonas and ESBL+klebsiella - h/o recurrent HCAP due to MRSA and Enterobacter (culture of tracheal aspirate on 07/16/2017 that was collected at [facility]) . Pt took vancomycin and ceftazidime - h/o acute respiratory distress post-thoracentesis, resolved - h/o thoracentesis on 07/18/2017, transudative (protein <2, LDH 279) - h/o bleeding from the trach site which might precipitated another episode of aspiration or pneumonitis - chronic hypoxic respiratory failure - h/o tracheostomy on 06/11/2017 - h/o septic shock due to pneumonia, ARDS, bacteremia, fungemia - h/o pneumonia with ARDS prior to transfer to [facility] - h/o smoking - COPD - ILD GI - s/p coffee ground emesis/UGIB 12/23/2017 due to deep ulceration of distal e sophagus and gastritis on EGD 12/26/2017. No e/o H. pylori - h/o possible appendicitis on CT on 11/22/2017, Pt's RLQ is not TTP. Pt took ertapenem (11/24/2017-12/01/2017) - h/o intermittent diarrhea, C diff negative 07/30/2017 (Pt had multiple negative C. diff tests at [facility] at [facility] prior to transfer here) - h/o extensive adhesions lower abdominal and pelvis between small bowel to each other and to colon and to abdominal wall, anterior pelvic wall chronic abscess secondary to probably an old perforated diverticulitis, torsion of small bowel around these dense adhesion causing multiple obstructive points - h/o laparoscopic exploration and extensive lysis of adhesions and drainage of anterior pelvic wall abscess 09/16/2017. Cultures were negative, no e/o malignancy. Pt took pip/tazo (09/16/2017-09/26/2017) - h/o partial obstruction mid jejunum in L anterior central pelvis with suggestion of a 3 cm soft tissue mass on CT 08/28/2017 - h/o internal stomal deep ulcer behind the internal bumper, gastritis and esophagitis, Rodriguez's cannot be ruled out, per EGD with biopsy 07/23/2017 - h/o GIB s/p flex sig showed polyp; stool OB negative on 06/29/17 - h/o stool OB positive - h/o SBO and ileus due to pain meds - h/o dysphagia, now eats regular meal - h/o PEG placement 06/13/17 - h/o EGD and exchange of PEG on 09/01/2017 - h/o mildly elevated CEA renal/ - s/p vaginal bleed; waiting for biopsy - h/o colonization of urinary tract by ESBL+klebsiella, VRE - h/o recurrent, symptomatic UTI due to carbapenem-resistant kleb (MDR strain) per urine culture 10/04/17, 10/09/17, 10/21/2017, P took colistin (10/09/2017- 10/15/2017), fosfomycin for carbapenemase-producing klebsiella and VRE on 10/25/2017 and 10/28/2017 - h/o funguria - urinary retention, Pt now has a Garza catheter. In the past she gets catheterized by Pt's RN q6-12hrs but is sometimes non-compliant - h/o recurrent NATHAN fungemia, bacteremia - bacteremia due to coag negative Staph, probable contaminant as her WBC level improved initially without antibiotic - 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 improved. Probable manifestation of endocarditis. Pt declined MRI on 08/06/2017 - h/o infection of wound of LLE - h/o debridement of wound of LLE on 08/06/2017 - h/o infection of R toes due to pseudomonas. coagulase negative Staph likely a colonizer. resolved - h/o intertrigo of the groin, resolved with nystatin powder - h/o scabies, locally crusted lesion over L scapula, s/p permethrin cream and pGT ivermectin on 08/11/2017, 08/12/2017, 08/19/2017. Repeat skin scraping on 08/21/2017 was negative for scabies psych, neuro - decreased hearing b/l, Pt denies tinnitus - h/o critical illness polyneuropathy - h/o anxiety/depression, bipolar d/o, seen by Psychiatry - chronic pain syndrome hematological, vascular - normocytic anemia requiring blood transfusion intermittently - 3.1 cm AAA on imaging - PVD other chronic conditions - adrenal insufficiency - protein calorie malnutrition - medical non-compliance: she would refuse her medications, treatment and straight catheterization at time R: cont. 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 Most currently she has been at [facility] and decannulated. She was apparently noted to be somewhat altered and sent for evaluation. She was noted to be hypotensive in er and admitted for uti/sepsis. She has been on cefepime. She is clinically improving per my d/w nurse Emiliano. She is more alert but still confused on my attempt at interview and exam. Please refer to [facility] for previous complicated hx. 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 Her SBO was thought to be caused by pain meds. Pt had Afib with RVR and NATHAN on admit. She vomited and aspirated leading to aspiration pneumonia/pneumonitis. This evolved into acute hypoxic respiratory failure requiring intubation, septic shock and ARDS. She subsequently developed bacteremia due to MSSA and proteus, and fungemia due to C. glabrata. For MSSA and proteus, she completed a course of ceftriaxone. At that time she was diagnosed with mitral valve endocarditis, which was attributed to fungemia. Pt reportedly declined mitral valve repair. Her ID skin care consultant there, Dr. Hoffmann recommended voriconazole x6 weeks from 06/14/2017. She failed to be weaned from the ventilator and underwent tracheostomy on 06/11/2017 followed by PEG placement on 06/13/2017. On 06/27/2017 Pt was transferred to [facility]. At the end of 06/2017 Pt had mild leukocytosis and mid abdominal pain. CT C/A/P on 07/16/2017 showed b/l pleural effusion and ascites. On 07/17/2017 Pt had R s ided thoracentesis. After thoracentesis, Pt developed recurrent acute hypoxic resp failure, leading to transfer back to [facility]. She was treated for aspiration pneumonia/HCAP due to MRSA and enterobacter. During that admission, she tested FOB+ and underwent EGD on 07/21/2017. It showed internal stomal ulcer deep behind the internal bumper and gastritis. On 07/26/2017 Pt was transferred back to [facility], and completed IV vancomycin for MRSA, ceftazidime for enterobacter and voriconazole for mallory. Her respiratory status slowly improved. However, leukocytosis persisted. 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 Once her leukocytosis normalized after empiric antibacterial and antifungal treatment, she was transferred back to [facility] on 09/16/2017 for exploratory laparotomy. This mass was found out to be chronic abscess of the anterior pelvic wall, probably representing an old perforated diverticulitis. This abscess mass was drained, and its culture did not grow bacteria. Pt received a course of pip/tazo. Pt was at [facility] again between 09/30/2017 and 11/26/2017 for the weaning trial. She was re ceiving intermittent urinary catheterization. Urine cultures revealed multiple MDROs; she received antibiotics for these when she developed signs and symptoms of UTI. At the end of 10/2017 she started having vaginal bleed resulting in anemia. Her CT scan on 11/22/2017 showed possible appendicitis. At that point, Pt was started on ertapenem to treat possible appendicitis (complicated intra-abdominal infection). On 11/26/2017 Pt was transferred to [facility] for evaluation" patient is unable to provide Past Medical History Home Meds Reported Medications Zinc Sulfate* (Zinc Sulfate*) 220 Mg Tablet, 220 MG GTB DAILY, TAB START DATE 05/04/18, END DATE 06/03/18 05/06/18 Diclofenac Sodium* (Voltaren* Gel) 1% -100 Gm Gel, 2 GM TOP TID, #1 TUB 05/06/18 Ascorbic Acid (Vitamin C) 500 Mg Tab, 500 MG GTB DAILY, TAB 05/06/18 Quetiapine Fumarate* (Seroquel*) 100 Mg Tablet, 600 MG GTB HS, #30 TAB 05/06/18 Protein Supplement (Promod) 946 Ml Liquid, 30 ML GTB BID 05/06/18 Epoetin Zen (Procrit) 20,000 Unit/1 Ml Vial, 04535 UNIT IJ Q TUE for FOR ANEMIA OF CKD, VIAL HOLD IFHGB IS EQUAL OR GREATER THAN 11 05/06/18 Ondansetron Hcl* (Ondansetron Hcl* Liq) 4 Mg/5 Ml Solution, 4 MG GTB Q6H PRN for NAUSEA AND/OR VOMITING, ML 05/06/18 Multivitamin with Minerals (Multivitamins with Minerals) 1 Each Tablet, 1 EACH GTB QAM, TAB 05/06/18 Metoprolol Tartrate* (Lopressor*) 25 Mg Tab, 25 MG GTB BID, #60 TAB HOLD FOR SBP<110 OR HR<60 05/06/18 Lorazepam* (Ativan* Intensol) 2 Mg/Ml Soln, 0.5 MG IV* Q6H PRN for ANXIETY, #1 BOTTLE START DATE 04/02/18, END DATE 06/01/18 05/06/18 Lidocaine (Lidocaine) 1 Each Adh..patch, 1 EACH TP Q12H 5% 05/06/18 Ipratropium-Albuterol (Ipratropium-Albuterol) 0.5-3 Mg/3 Ml Ampul.neb, 3 ML INHALATION Q6 PRN for BRONCHOSPASM, #30 VIAL 05/06/18 Ipratropium-Albuterol (Ipratropium-Albuterol) 0.5-3 Mg/3 Ml Ampul.neb, 3 ML INHALATION Q2H PRN for BRONCHOSPASM, #30 VIAL 05/06/18 Famotidine* (Famotidine*) 20 Mg Tablet, 20 MG GTB BID, #60 TAB 05/06/18 Valproic Acid* (Depakene*) 250 Mg/5 Ml Udc Syrup, 100 MG GTB QHS, ML 05/06/18 Clonidine Hcl* (Clonidine Hcl*) 0.1 Mg Tab, 0.1 MG GTB Q6 PRN for NEEDED, TAB FOR SBP>160 OR DBP>90 05/06/18 Aspirin* (Aspirin* Chew) 81 Mg Tab.chew, 81 MG GTB DAILY, TAB.CHEW 05/06/18 Discontinued Reported Medications Docusate Sodium* (Colace* Liq) 50 Mg/5 Ml Liquid, 100 MG GTB BID, EA 12/29/17 Na Phos,M-B/Na Phos,Di-Ba (Fleet Enema Extra) 230 Ml Enema, 230 ML RC PRN for CONSTIPATION, ENEMA 12/29/17 Bisacodyl* (Dulcolax*) 5 Mg Tablet.dr, 10 MG GTB DAILY PRN for CONSTIPATION, TAB 12/29/17 Docusate Sodium* (Colace* Liq) 50 Mg/5 Ml Liquid, 100 MG GTB BID, EA 12/29/17 Ferrous Sulfate* (Ferrous Sulfate*) 325 Mg Tabec, 330 MG GTB DAILY, TAB 12/29/17 Zinc Sulfate* (Zinc Sulfate*) 220 Mg Tablet, 220 MG GTB DAILY, TAB 12/29/17 Ascorbic Acid (Vitamin C) 500 Mg Tab, 500 MG GTB DAILY, TAB 12/29/17 Multivitamin with Minerals (Daily Vitamin Formula-Minerals) 1 Each Tablet, 1 EACH PO DAILY, TAB 12/29/17 Megestrol Acetate* (Megace ES*) 625 Mg/5 Ml Oral.susp, 400 MG PO DAILY, ML 12/29/17 Atorvastatin (Atorvastatin) 10 Mg Tablet, 20 MG PO QHS, #30 TAB 12/29/17 Amlodipine Besylate* (Amlodipine Besylate*) 2.5 Mg Tablet, 2.5 MG PO BID, #30 TAB HOLD FOR SBP < 110 OR HR < 60 12/29/17 Ondansetron Hcl* (Ondansetron Hcl* Liq) 4 Mg/5 Ml Solution, 4 MG IV* Q6H PRN for NAUSEA AND/OR VOMITING, ML 08/26/17 Morphine Sulfate* (Morphine* Liq) 10 Mg/5 Ml Solution, 6 MG GTB Q4H PRN for PAIN, ML 08/26/17 Morphine Sulfate* (Morphine* Liq) 10 Mg/5 Ml Solution, 3 MG PO Q4H PRN for PAIN, ML 08/26/17 Metoprolol Tartrate* (Lopressor*) 25 Mg Tablet, 25 MG PO BID, #60 TAB 08/26/17 Methylprednisolone Sod Succ (Solu-Medrol) 10 Mg/Ml Soln, 20 MG IV* DAILY 08/26/17 Lorazepam* (Ativan* Intensol) 2 Mg/Ml Soln, 0.5 MG IV* Q4H PRN for ANXIETY, #1 BOTTLE 08/26/17 Lansoprazole* (Lansoprazole*) 30 Mg Capsule.dr, 30 MG GTB BID, CAP 08/26/17 Hydrocodone/Acetaminophen ([place] 5-325 Tablet) 1 Each Tablet, 1 EACH GTB Q4 PRN for PAIN, TAB 08/26/17 Furosemide* (Lasix* Liq) 40 Mg/4 Ml Solution, 40 MG IV* DAILY, #120 ML 08/26/17 Chlorhexidine Gluconate (Chlorhexidine Gluconate) 1 Each Towelette, 1 EACH TP PRN PRN for CENTRAL LINE, TOWELETTE 08/26/17 Bethanechol Chloride* (Bethanechol Chloride*) 25 Mg Tablet, 25 MG GTB TID, TAB 08/26/17 Acetylcysteine* (Mucomyst*) 4 Ml Soln, 2 ML NEB BID, EA 08/26/17 Valproic Acid* (Valproic Acid* Liq) 250 Mg/5 Ml Syrup, 1000 MG GTB QHS, ML 07/18/17 Simethicone (INFANT GAS RELIEF) 40 Mg/0.6 Ml Drops.susp, 40 MG GTB Q4H 07/18/17 Quetiapine Fumarate* (Quetiapine Fumarate*) 100 Mg Tablet, 600 MG GTB HS, TAB 07/18/17 Nystatin (Nystatin Powder) 1 Each Powder.ea., 1 APPLIC TOPICAL DAILY, #1 BOTTLE 07/18/17 Nitroglycerin* (Nitroglycerin* SL) 0.4 Mg Tab.subl, 0.4 MG SL Q5MIN PRN for CHEST PAIN, BOTTLE 07/18/17 Hydralazine Hcl* (Apresoline* Pediatric IV Syringe) 1 Mg/Ml Soln, 5 MG IV Q4H PRN for NEEDED, EA 07/18/17 Ferrous Sulfate* (Ferrous Sulfate*) 220 Mg/5 Ml Solution, 300 MG GTB BID, ML 07/18/17 Escitalopram Oxalate* (Escitalopram Oxalate*) 10 Mg Tablet, 10 MG GTB DAILY, #30 TAB 07/18/17 Collagenase* (Santyl*) 30 Gm Oint..gm., 1 APPLIC TOP .SOILED PRN for SOILED, #1 TUB 07/18/17 Clonazepam* (Clonazepam*) 0.5 Mg Tablet, 0.25 MG GTB BID, TAB 07/18/17 Budesonide* (Budesonide*) 0.5 Mg/2 Ml Ampul.neb, 0.5 MG INHALATION Q12H, AMP 07/18/17 Betamethasone-Clotrimazole* (Lotrisone*) 15 Gm Cr, 1 APPLIC TOP BID, TUB 07/18/17 Amiodarone Hcl* (Amiodarone Hcl*) 200 Mg Tablet, 100 MG GTB DAILY, #30 TAB HOLD IF SBP <110 OR HR < 60 07/18/17 Albuterol Sulfate* (Albuterol Sulfate* Neb) 0.083%-3 Ml Neb, 2.5 MG NEB NEEDED PRN for WHEEZING AND SOB, #30 VIAL 07/18/17 Albuterol Sulfate* (Albuterol Sulfate* Neb) 0.083%-3 Ml Neb, 2.5 MG NEB Q4H PRN for WHEEZING AND SOB, #30 VIAL 07/18/17 Acetaminophen* (Acetaminophen* Susp) 325 Mg/10.15 Ml Solution, 650 MG PO Q4H PRN for NEEDED, ML 07/18/17 Medications Current Medications IV Flush (NS 10 ml) 10 ml PRN IV ; Start 05/06/18 at 20:30 Cefepime HCl 50 ml @ 100 mls/hr Q12 IVPB Last administered on 05/07/18at 08:52; Admin Dose 100 MLS/HR; Start 05/07/18 at 09:00 Sodium Chloride 1,000 ml @ 125 mls/hr Q8H IV Last administered on 05/07/18 07:22; Admin Dose 125 MLS/HR; Start 05/06/18 at 23:30 Ascorbic Acid (Vitamin C) 500 mg DAILY GTB Last administered on 05/07/18 08:51; Admin Dose 500 MG; Start 05/07/18 at 09:00 Aspirin (Aspirin) 81 mg DAILY GTB Last administered on 05/07/18 08:52; Admin Dose 81 MG; Start 05/07/18 at 09:00 Albuterol/ Ipratropium (Duoneb) 3 ml Q2H RESP THERAPY PRN HHN SHORTNESS OF BREATH; Start 05/06/18 at 23:30 Albuterol/ Ipratropium (Duoneb) 3 ml Q6H RESP THERAPY HHN Last administered on 05/07/18 08:26; Admin Dose 3 ML; Start 05/07/18 at 02:00 Lorazepam (Ativan Intensol) 0.5 mg Q6H PRN PEG ANXIETY; Start 05/06/18 at 23:30 Quetiapine Fumarate (Seroquel) 300 mg HS GTB ; Start 05/07/18 at 21:00 Valproate Sodium (Depakene Liquid Cup) 100 mg QHS GTB ; Start 05/07/18 at 21:00 Zinc Sulfate (Zinc Sulfate) 220 mg DAILY GTB Last administered on 05/07/18 08:52; Admin Dose 220 MG; Start 05/07/18 at 09:00 Norepinephrine 250 ml @ 1.875 mls/ hr TITRATE IV Last administered on 05/07/18at 00:50; Admin Dose 3.75 MLS/HR; Start 05/07/18 at 00:00 Lansoprazole (Prevacid) 30 mg DAILY@06 GTB Last administered on 05/07/18 06:09; Admin Dose 30 MG; Start 05/07/18 at 06:00 Ondansetron HCl (Zofran Tab) 4 mg Q6H PRN GTB NAUSEA AND/OR VOMITING; Start 05/07/18 at 00:15 Multivitamins (Multivitamin) 30 ml DAILY GTB Last administered on 3/21/19at 08:52; Admin Dose 30 ML; Start 05/07/18 at 09:00 Epoetin Zen (Epogen (Esrd)) 20,000 units Tu@1700 SC ; Start 05/12/18 at 17:00 Allergies: Coded Allergies: shellfish derived (Unverified Allergy, Unknown, 05/06/18) Past Surgical History Past Surgical Hx: endoscopy, other Social History Smoking Status: Unknown if ever smoked Exam/Review of Systems Exam Vitals Vital Signs Date Temp Pulse Resp B/P (MAP) Pulse Ox O2 O2 Flow FiO2 Time Delivery Rate 05/07/18 118 19 117/41 98 09:15 (66) 05/07/18 Nasal 09:00 Cannula 05/07/18 3.0 08:26 05/07/18 99.8 08:00 Intake and Output 05/06/18 05/06/18 05/07/18 1515:00 23:00 07:00 IntakeIntake Total 972.50 ml OutputOutput Total 800 ml BalanceBalance 172.50 ml Constitutional: other (confused, sleepy, arousable) Head: normocephalic, atraumatic Eyes: nl conjunctiva, EOMI, nl lids, nl sclera, PERRL Neck: supple, non-tender Respiratory: clear to auscultation, normal air movement Cardiovascular: regular rate and rhythm, nl pulses Gastrointestinal: soft, nl liver, spleen, non-tender Neurological: 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, confused Results Result Diagram: 05/07/18 0430 05/07/18 0430 Results 24hrs Laboratory Tests Test 05/06/18 14:46 05/06/18 14:49 05/06/18 17:28 05/06/18 17:56 POC Venous 0.8 1.6 Lactate White Blood Count 12.5 #H Red Blood Count 3.14 L Hemoglobin 10.8 L Hematocrit 32.7 L Mean Corpuscular 104.1 H Volume Mean Corpuscular 34.4 H Hemoglobin Mean Corpuscular 33.0 Hemoglobin Concen t Red Cell 13.5 # Distribution Width Platelet Count 287 Mean Platelet 10.0 Volume Immature 1.000 H Granulocytes % Neutrophils % 87.2 H Lymphocytes % 3.2 L Monocytes % 7.5 Eosinophils % 0.9 Basophils % 0.2 Nucleated Red 0.0 Blood Cells % Immature 0.120 H Granulocytes # Neutrophils # 10.9 H Lymphocytes # 0.4 L Monocytes # 0.9 Eosinophils # 0.1 Basophils # 0.0 Nucleated Red 0.0 Blood Cells # Prothrombin Time 13.7 Prothrombin Time 1.1 Ratio INR International 1.04 Normalized Ratio Activated 43.4 H Partial Thrombopl ast Time Sodium Level 122 L Potassium Level 5.2 H Chloride Level 89 L Carbon Dioxide 13 L Level Anion Gap 20 H Blood Urea 172 H Nitrogen Creatinine 3.05 H Est Glomerular Filtrat Rate mL/min Glucose Level 84 Calcium Level 9.6 Total Bilirubin 0.0 L Direct Bilirubin 0.00 Indirect 0.0 Bilirubin Aspartate Amino 43 Transf (AST/SGOT) Alanine < 6 L Aminotransferase (ALT/SGPT) Alkaline 145 H Phosphatase Troponin I 0.058 Total Protein 7.1 Albumin 3.1 L Globulin 4.00 H Albumin/Globulin 0.77 Ratio Urine Color YELLOW Urine Clarity TURBID A Urine pH 6.0 Urine Specific 1.009 [place] Urine Ketones NEGATIVE Urine Nitrite NEGATIVE Urine Bilirubin NEGATIVE Urine NEGATIVE Urobilinogen Urine Leukocyte 3+ H Esterase Urine Microscopic 24 H RBC Urine Microscopic > 182 H WBC Urine Squamous FEW Epithelial Cells Urine Bacteria MANY A Urine Hemoglobin 2+ H Urine Glucose NEGATIVE Urine Total 2+ H Protein Test 05/06/18 21:56 05/07/18 04:30 05/07/18 09:49 05/07/18 11:23 Lactic Acid Level 0.7 White Blood Count 16.9 #H Red Blood Count 2.73 L Hemoglobin 9.3 L Hematocrit 28.7 L Mean Corpuscular 105.1 H Volume Mean Corpuscular 34.1 H Hemoglobin Mean Corpuscular 32.4 Hemoglobin Concen t Red Cell 13.4 Distribution Width Platelet Count 290 Mean Platelet 10.0 Volume Immature 0.500 H Granulocytes % Neutrophils % Segmented 66 Neutrophils % (Manual) Band Neutrophils 24 H % (Manual) Lymphocytes % Lymphocytes % 2 L (Manual) Monocytes % Monocytes % 6 (Manual) Eosinophils % Eosinophils % 2 (Manual) Basophils % Nucleated Red 0.0 Blood Cells % Immature 0.090 H Granulocytes # Neutrophils # Neutrophils # 11.8 H (Manual) Band Neutrophils 4.0 H # Lymphocytes 0.3 L (Manual) Lymphocytes # Monocytes # Monocytes # 1.0 H (Manual) Eosinophils # Basophils # Nucleated Red Blood Cells # Platelet Estimate NORMAL Polychromasia 1+ Anisocytosis 1+ Macrocytosis 1+ Spherocytes 1+ Sodium Level 130 L Potassium Level 3.8 Chloride Level 99 # Carbon Dioxide 13 L Level Anion Gap 18 H Blood Urea 147 H Nitrogen Creatinine 2.90 H Est Glomerular Filtrat Rate mL/min Glucose Level 60 #L Calcium Level 8.9 Blood Gas Blood arterial Specimen Source Arterial Blood 05/07/2018 10:19: Date Drawn 00 AM Arterial Blood pH 7.255 *L (Temp corrected) Arterial Blood 28.2 L pCO2 (Temp correct) Arterial Blood 68.1 L pO2 (Temp corrected) Arterial Blood 12.2 L HCO3 Arterial Blood -13.5 L Base Excess Arterial Blood 91.8 L Oxygen Saturation Steven Test ACCEPTAB Arterial Blood Left Radial Gas Puncture Site Arterial 0.9 Blood Carboxyhemo globin Arterial Blood 0.4 Methemoglobin Blood Gas A-a O2 112.7 H Differential Oxyhemoglobin 90.6 L Percent Blood Gas 37.0 Temperature Blood Gas NASAL CANNULA Modality FiO2 30.0 Blood Gas LPEREZ RN Critical Value Read Back Blood Gas TM Notified Whom Blood Gas 05/07/2018 10:27: Notified Time 00 AM Bedside Glucose 78 Medications Medication Current Medications IV Flush (NS 10 ml) 10 ml PRN IV ; Start 05/06/18 at 20:30 Cefepime HCl 50 ml @ 100 mls/hr Q12 IVPB Last administered on 05/07/18 08:52; Admin Dose 100 MLS/HR; Start 05/07/18 at 09:00 Sodium Chloride 1,000 ml @ 125 mls/hr Q8H IV Last administered on 05/07/18 07:22; Admin Dose 125 MLS/HR; Start 05/06/18 at 23:30 Ascorbic Acid (Vitamin C) 500 mg DAILY GTB Last administered on 05/07/18 08:51; Admin Dose 500 MG; Start 05/07/18 at 09:00 Aspirin (Aspirin) 81 mg DAILY GTB Last administered on 05/07/18 08:52; Admin Dose 81 MG; Start 05/07/18 at 09:00 Albuterol/ Ipratropium (Duoneb) 3 ml Q2H RESP THERAPY PRN HHN SHORTNESS OF BREATH; Start 05/06/18 at 23:30 Albuterol/ Ipratropium (Duoneb) 3 ml Q6H RESP THERAPY HHN Last administered on 05/07/18at 08:26; Admin Dose 3 ML; Start 05/07/18 at 02:00 Lorazepam (Ativan Intensol) 0.5 mg Q6H PRN PEG ANXIETY; Start 05/06/18 at 23:30 Quetiapine Fumarate (Seroquel) 300 mg HS GTB ; Start 05/07/18 at 21:00 Valproate Sodium (Depakene Liquid Cup) 100 mg QHS GTB ; Start 05/07/18 at 21:00 Zinc Sulfate (Zinc Sulfate) 220 mg DAILY GTB Last administered on 05/07/18at 08:52; Admin Dose 220 MG; Start 05/07/18 at 09:00 Norepinephrine 250 ml @ 1.875 mls/ hr TITRATE IV Last administered on 05/07/18at 00:50; Admin Dose 3.75 MLS/HR; Start 05/07/18 at 00:00 Lansoprazole (Prevacid) 30 mg DAILY@06 GTB Last administered on 05/07/18at 06:09; Admin Dose 30 MG; Start 05/07/18 at 06:00 Ondansetron HCl (Zofran Tab) 4 mg Q6H PRN GTB NAUSEA AND/OR VOMITING; Start 05/07/18 at 00:15 Multivitamins (Multivitamin) 30 ml DAILY GTB Last administered on 05/07/18at 08:52; Admin Dose 30 ML; Start 05/07/18 at 09:00 Epoetin Zen (Epogen (Esrd)) 20,000 units Tu@1700 SC ; Start 05/12/18 at 17:00 MANN VALDEZ MD May 07, 2018 13:03
--- NOTE | 2018-05-07 13:21 | CONS ---
Assessment/Plan Assessment/Plan Hospital Course (Demo Recall) Septic shock Hypotension on IV pressor History of respiratory failure status post decannulation Preserved ejection fraction Paroxysmal atrial fibrillation, currently sinus rhythm Acute kidney injury -Titrate IV pressor to maintain SBP greater than 90 and/or map above 60 -IV fluids as per renal -Hold all antihypertensives and nephrotoxic medications -Patient currently remains in sinus rhythm, maintain on telemetry monitoring -Antibiotics as per infectious disease Consultation Date/Type/Reason Admit Date/Time May 06, 2018 at 17:38 Type of Consult Cardiology Reason for Consultation Hypotension Date/Time of Note DATE: 05/07/18 TIME: 13:17 Hx of Present Illness This is a 73-year-old female well-known to me from multiple previous admissions who was brought to the emergency room secondary to abnormal labs and concern for infection. Patient found in septic shock presumed from UTI as well as acute kidney injury. She denies any current chest pain or shortness of breath. She does feel tired. She denies any abdominal pain. Patient in the ICU on IV pressors. 12 point review of systems was performed with all pertinent positives and negatives mentioned above and all else is negative Past Medical History Respiratory failure status post recent decannulation Paroxysmal atrial fibrillation Medical History: congestive heart failure Home Meds Reported Medications Zinc Sulfate* (Zinc Sulfate*) 220 Mg Tablet, 220 MG GTB DAILY, TAB START DATE 05/04/18, END DATE 06/03/18 05/06/18 Diclofenac Sodium* (Voltaren* Gel) 1% -100 Gm Gel, 2 GM TOP TID, #1 TUB 05/06/18 Ascorbic Acid (Vitamin C) 500 Mg Tab, 500 MG GTB DAILY, TAB 05/06/18 Quetiapine Fumarate* (Seroquel*) 100 Mg Tablet, 600 MG GTB HS, #30 TAB 05/06/18 Protein Supplement (Promod) 946 Ml Liquid, 30 ML GTB BID 05/06/18 Epoetin Zen (Procrit) 20,000 Unit/1 Ml Vial, 40846 UNIT IJ Q TUE for FOR ANEMIA OF CKD, VIAL HOLD IFHGB IS EQUAL OR GREATER THAN 11 05/06/18 Ondansetron Hcl* (Ondansetron Hcl* Liq) 4 Mg/5 Ml Solution, 4 MG GTB Q6H PRN for NAUSEA AND/OR VOMITING, ML 05/06/18 Multivitamin with Minerals (Multivitamins with Minerals) 1 Each Tablet, 1 EACH GTB QAM, TAB 05/06/18 Metoprolol Tartrate* (Lopressor*) 25 Mg Tab, 25 MG GTB BID, #60 TAB HOLD FOR SBP<110 OR HR<60 05/06/18 Lorazepam* (Ativan* Intensol) 2 Mg/Ml Soln, 0.5 MG IV* Q6H PRN for ANXIETY, #1 BOTTLE START DATE 04/02/18, END DATE 06/01/18 05/06/18 Lidocaine (Lidocaine) 1 Each Adh..patch, 1 EACH TP Q12H 5% 05/06/18 Ipratropium-Albuterol (Ipratropium-Albuterol) 0.5-3 Mg/3 Ml Ampul.neb, 3 ML INHALATION Q6 PRN for BRONCHOSPASM, #30 VIAL 05/06/18 Ipratropium-Albuterol (Ipratropium-Albuterol) 0.5-3 Mg/3 Ml Ampul.neb, 3 ML I NHALATION Q2H PRN for BRONCHOSPASM, #30 VIAL 05/06/18 Famotidine* (Famotidine*) 20 Mg Tablet, 20 MG GTB BID, #60 TAB 05/06/18 Valproic Acid* (Depakene*) 250 Mg/5 Ml Udc Syrup, 100 MG GTB QHS, ML 05/06/18 Clonidine Hcl* (Clonidine Hcl*) 0.1 Mg Tab, 0.1 MG GTB Q6 PRN for NEEDED, TAB FOR SBP>160 OR DBP>90 05/06/18 Aspirin* (Aspirin* Chew) 81 Mg Tab.chew, 81 MG GTB DAILY, TAB.CHEW 05/06/18 Discontinued Reported Medications Docusate Sodium* (Colace* Liq) 50 Mg/5 Ml Liquid, 100 MG GTB BID, EA 12/29/17 Na Phos,M-B/Na Phos,Di-Ba (Fleet Enema Extra) 230 Ml Enema, 230 ML RC PRN for CONSTIPATION, ENEMA 12/29/17 Bisacodyl* (Dulcolax*) 5 Mg Tablet.dr, 10 MG GTB DAILY PRN for CONSTIPATION, TAB 12/29/17 Docusate Sodium* (Colace* Liq) 50 Mg/5 Ml Liquid, 100 MG GTB BID, EA 12/29/17 Ferrous Sulfate* (Ferrous Sulfate*) 325 Mg Tabec, 330 MG GTB DAILY, TAB 12/29/17 Zinc Sulfate* (Zinc Sulfate*) 220 Mg Tablet, 220 MG GTB DAILY, TAB 12/29/17 Ascorbic Acid (Vitamin C) 500 Mg Tab, 500 MG GTB DAILY, TAB 12/29/17 Multivitamin with Minerals (Daily Vitamin Formula-Minerals) 1 Each Tablet, 1 EACH PO DAILY, TAB 12/29/17 Megestrol Acetate* (Megace ES*) 625 Mg/5 Ml Oral.susp, 400 MG PO DAILY, ML 12/29/17 Atorvastatin (Atorvastatin) 10 Mg Tablet, 20 MG PO QHS, #30 TAB 12/29/17 Amlodipine Besylate* (Amlodipine Besylate*) 2.5 Mg Tablet, 2.5 MG PO BID, #30 TAB HOLD FOR SBP < 110 OR HR < 60 12/29/17 Ondansetron Hcl* (Ondansetron Hcl* Liq) 4 Mg/5 Ml Solution, 4 MG IV* Q6H PRN for NAUSEA AND/OR VOMITING, ML 08/26/17 Morphine Sulfate* (Morphine* Liq) 10 Mg/5 Ml Solution, 6 MG GTB Q4H PRN for PAIN, ML 08/26/17 Morphine Sulfate* (Morphine* Liq) 10 Mg/5 Ml Solution, 3 MG PO Q4H PRN for PAIN, ML 08/26/17 Metoprolol Tartrate* (Lopressor*) 25 Mg Tablet, 25 MG PO BID, #60 TAB 08/26/17 Methylprednisolone Sod Succ (Solu-Medrol) 10 Mg/Ml Soln, 20 MG IV* DAILY 08/26/17 Lorazepam* (Ativan* Intensol) 2 Mg/Ml Soln, 0.5 MG IV* Q4H PRN for ANXIETY, #1 BOTTLE 08/26/17 Lansoprazole* (Lansoprazole*) 30 Mg Capsule.dr, 30 MG GTB BID, CAP 08/26/17 Hydrocodone/Acetaminophen (Empire 5-325 Tablet) 1 Each Tablet, 1 EACH GTB Q4 PRN for PAIN, TAB 08/26/17 Furosemide* (Lasix* Liq) 40 Mg/4 Ml Solution, 40 MG IV* DAILY, #120 ML 08/26/17 Chlorhexidine Gluconate (Chlorhexidine Gluconate) 1 Each Towelette, 1 EACH TP PRN PRN for CENTRAL LINE, TOWELETTE 08/26/17 Bethanechol Chloride* (Bethanechol Chloride*) 25 Mg Tablet, 25 MG GTB TID, TAB 08/26/17 Acetylcysteine* (Mucomyst*) 4 Ml Soln, 2 ML NEB BID, EA 08/26/17 Valproic Acid* (Valproic Acid* Liq) 250 Mg/5 Ml Syrup, 1000 MG GTB QHS, ML 07/18/17 Simethicone (INFANT GAS RELIEF) 40 Mg/0.6 Ml Drops.susp, 40 MG GTB Q4H 07/18/17 Quetiapine Fumarate* (Quetiapine Fumarate*) 100 Mg Tablet, 600 MG GTB HS, TAB 07/18/17 Nystatin (Nystatin Powder) 1 Each Powder.ea., 1 APPLIC TOPICAL DAILY, #1 BOTTLE 07/18/17 Nitroglycerin* (Nitroglycerin* SL) 0.4 Mg Tab.subl, 0.4 MG SL Q5MIN PRN for CHEST PAIN, BOTTLE 07/18/17 Hydralazine Hcl* (Apresoline* Pediatric IV Syringe) 1 Mg/Ml Soln, 5 MG IV Q4H PRN for NEEDED, EA 07/18/17 Ferrous Sulfate* (Ferrous Sulfate*) 220 Mg/5 Ml Solution, 300 MG GTB BID, ML 07/18/17 Escitalopram Oxalate* (Escitalopram Oxalate*) 10 Mg Tablet, 10 MG GTB DAILY, #30 TAB 07/18/17 Collagenase* (Santyl*) 30 Gm Oint..gm., 1 APPLIC TOP .SOILED PRN for SOILED, #1 TUB 07/18/17 Clonazepam* (Clonazepam*) 0.5 Mg Tablet, 0.25 MG GTB BID, TAB 07/18/17 Budesonide* (Budesonide*) 0.5 Mg/2 Ml Ampul.neb, 0.5 MG INHALATION Q12H, AMP 07/18/17 Betamethasone-Clotrimazole* (Lotrisone*) 15 Gm Cr, 1 APPLIC TOP BID, TUB 07/18/17 Amiodarone Hcl* (Amiodarone Hcl*) 200 Mg Tablet, 100 MG GTB DAILY, #30 TAB HOLD IF SBP <110 OR HR < 60 07/18/17 Albuterol Sulfate* (Albuterol Sulfate* Neb) 0.083%-3 Ml Neb, 2.5 MG NEB NEE DED PRN for WHEEZING AND SOB, #30 VIAL 07/18/17 Albuterol Sulfate* (Albuterol Sulfate* Neb) 0.083%-3 Ml Neb, 2.5 MG NEB Q4H PRN for WHEEZING AND SOB, #30 VIAL 07/18/17 Acetaminophen* (Acetaminophen* Susp) 325 Mg/10.15 Ml Solution, 650 MG PO Q4H PRN for NEEDED, ML 07/18/17 Medications Current Medications IV Flush (NS 10 ml) 10 ml PRN IV ; Start 05/06/18 at 20:30 Cefepime HCl 50 ml @ 100 mls/hr Q12 IVPB Last administered on 05/07/18at 08:52; Admin Dose 100 MLS/HR; Start 05/07/18 at 09:00 Sodium Chloride 1,000 ml @ 125 mls/hr Q8H IV Last administered on 05/07/18at 07:22; Admin Dose 125 MLS/HR; Start 05/06/18 at 23:30 Ascorbic Acid (Vitamin C) 500 mg DAILY GTB Last administered on 05/07/18at 08:51; Admin Dose 500 MG; Start 05/07/18 at 09:00 Aspirin (Aspirin) 81 mg DAILY GTB Last administered on 05/07/18at 08:52; Admin Dose 81 MG; Start 05/07/18 at 09:00 Albuterol/ Ipratropium (Duoneb) 3 ml Q2H RESP THERAPY PRN HHN SHORTNESS OF BREATH; Start 05/06/18 at 23:30 Albuterol/ Ipratropium (Duoneb) 3 ml Q6H RESP THERAPY HHN Last administered on 05/07/18at 08:26; Admin Dose 3 ML; Start 05/07/18 at 02:00 Lorazepam (Ativan Intensol) 0.5 mg Q6H PRN PEG ANXIETY; Start 05/06/18 at 23:30 Quetiapine Fumarate (Seroquel) 300 mg HS GTB ; Start 05/07/18 at 21:00 Valproate Sodium (Depakene Liquid Cup) 100 mg QHS GTB ; Start 05/07/18 at 21:00 Zinc Sulfate (Zinc Sulfate) 220 mg DAILY GTB Last administered on 05/07/18at 08:52; Admin Dose 220 MG; Start 05/07/18 at 09:00 Norepinephrine 250 ml @ 1.875 mls/ hr TITRATE IV Last administered on 05/07/18at 00:50; Admin Dose 3.75 MLS/HR; Start 05/07/18 at 00:00 Lansoprazole (Prevacid) 30 mg DAILY@06 GTB Last administered on 05/07/18at 06:09; Admin Dose 30 MG; Start 05/07/18 at 06:00 Ondansetron HCl (Zofran Tab) 4 mg Q6H PRN GTB NAUSEA AND/OR VOMITING; Start 05/07/18 at 00:15 Multivitamins (Multivitamin) 30 ml DAILY GTB Last administered on 05/07/18at 08:52; Admin Dose 30 ML; Start 05/07/18 at 09:00 Epoetin Zen (Epogen (Esrd)) 20,000 units Tu@1700 SC ; Start 05/12/18 at 17:00 Allergies: Coded Allergies: shellfish derived (Unverified Allergy, Unknown, 05/06/18) Past Surgical History Past Surgical Hx: endoscopy, other Family History Significant Family History: no pertinent family hx Social History Smoking Status: Unknown if ever smoked Exam/Review of Systems Vital Signs Vitals Vital Signs Date Temp Pulse Resp B/P (MAP) Pulse Ox O2 O2 Flow FiO2 Time Delivery Rate 05/07/18 118 19 117/41 98 09:15 (66) 05/07/18 Nasal 09:00 Cannula 05/07/18 3.0 08:26 05/07/18 99.8 08:00 Intake and Output 05/06/18 05/06/18 05/07/18 1515:00 23:00 07:00 IntakeIntake Total 972.50 ml OutputOutput Total 800 ml BalanceBalance 172.50 ml Exam Constitutional: alert (Confused at times, following commands, no apparent distress) Head: normocephalic Respiratory: other (Coarse breath sounds bilaterally, no wheezing) Cardiovascular: regular rate and rhythm (S1-S2 heard) Gastrointestinal: soft, non-tender, bowel sounds Extremities: edema Labs Result Diagram: 05/07/18 0430 05/07/18 0430 Results 24hrs Laboratory Tests Test 05/06/18 14:46 05/06/18 14:49 05/06/18 17:28 05/06/18 17:56 POC Venous 0.8 1.6 Lactate White Blood Count 12.5 #H Red Blood Count 3.14 L Hemoglobin 10.8 L Hematocrit 32.7 L Mean Corpuscular 104.1 H Volume Mean Corpuscular 34.4 H Hemoglobin Mean Corpuscular 33.0 Hemoglobin Concen t Red Cell 13.5 # Distribution Width Platelet Count 287 Mean Platelet 10.0 Volume Immature 1.000 H Granulocytes % Neutrophils % 87.2 H Lymphocytes % 3.2 L Monocytes % 7.5 Eosinophils % 0.9 Basophils % 0.2 Nucleated Red 0.0 Blood Cells % Immature 0.120 H Granulocytes # Neutrophils # 10.9 H Lymphocytes # 0.4 L Monocytes # 0.9 Eosinophils # 0.1 Basophils # 0.0 Nucleated Red 0.0 Blood Cells # Prothrombin Time 13.7 Prothrombin Time 1.1 Ratio INR International 1.04 Normalized Ratio Activated 43.4 H Partial Thrombopl ast Time Sodium Level 122 L Potassium Level 5.2 H Chloride Level 89 L Carbon Dioxide 13 L Level Anion Gap 20 H Blood Urea 172 H Nitrogen Creatinine 3.05 H Est Glomerular Filtrat Rate mL/min Glucose Level 84 Calcium Level 9.6 Total Bilirubin 0.0 L Direct Bilirubin 0.00 Indirect 0.0 Bilirubin Aspartate Amino 43 Transf (AST/SGOT) Alanine < 6 L Aminotransferase (ALT/SGPT) Alkaline 145 H Phosphatase Troponin I 0.058 Total Protein 7.1 Albumin 3.1 L Globulin 4.00 H Albumin/Globulin 0.77 Ratio Urine Color YELLOW Urine Clarity TURBID A Urine pH 6.0 Urine Specific 1.009 [place] Urine Ketones NEGATIVE Urine Nitrite NEGATIVE Urine Bilirubin NEGATIVE Urine NEGATIVE Urobilinogen Urine Leukocyte 3+ H Esterase Urine Microscopic 24 H RBC Urine Microscopic > 182 H WBC Urine Squamous FEW Epithelial Cells Urine Bacteria MANY A Urine Hemoglobin 2+ H Urine Glucose NEGATIVE Urine Total 2+ H Protein Test 05/06/18 21:56 05/07/18 04:30 05/07/18 09:49 05/07/18 11:23 Lactic Acid Level 0.7 White Blood Count 16.9 #H Red Blood Count 2.73 L Hemoglobin 9.3 L Hematocrit 28.7 L Mean Corpuscular 105.1 H Volume Mean Corpuscular 34.1 H Hemoglobin Mean Corpuscular 32.4 Hemoglobin Concen t Red Cell 13.4 Distribution Width Platelet Count 290 Mean Platelet 10.0 Volume Immature 0.500 H Granulocytes % Neutrophils % Segmented 66 Neutrophils % (Manual) Band Neutrophils 24 H % (Manual) Lymphocytes % Lymphocytes % 2 L (Manual) Monocytes % Monocytes % 6 (Manual) Eosinophils % Eosinophils % 2 (Manual) Basophils % Nucleated Red 0.0 Blood Cells % Immature 0.090 H Granulocytes # Neutrophils # Neutrophils # 11.8 H (Manual) Band Neutrophils 4.0 H # Lymphocytes 0.3 L (Manual) Lymphocytes # Monocytes # Monocytes # 1.0 H (Manual) Eosinophils # Basophils # Nucleated Red Blood Cells # Platelet Estimate NORMAL Polychromasia 1+ Anisocytosis 1+ Macrocytosis 1+ Spherocytes 1+ Sodium Level 130 L Potassium Level 3.8 Chloride Level 99 # Carbon Dioxide 13 L Level Anion Gap 18 H Blood Urea 147 H Nitrogen Creatinine 2.90 H Est Glomerular Filtrat Rate mL/min Glucose Level 60 #L Calcium Level 8.9 Blood Gas Blood arterial Specimen Source Arterial Blood 05/07/2018 10:19: Date Drawn 00 AM Arterial Blood pH 7.255 *L (Temp corrected) Arterial Blood 28.2 L pCO2 (Temp correct) Arterial Blood 68.1 L pO2 (Temp corrected) Arterial Blood 12.2 L HCO3 Arterial Blood -13.5 L Base Excess Arterial Blood 91.8 L Oxygen Saturation Steven Test ACCEPTAB Arterial Blood Left Radial Gas Puncture Site Arterial 0.9 Blood Carboxyhemo globin Arterial Blood 0.4 Methemoglobin Blood Gas A-a O2 112.7 H Differential Oxyhemoglobin 90.6 L Percent Blood Gas 37.0 Temperature Blood Gas NASAL CANNULA Modality FiO2 30.0 Blood Gas LPEREZ RN Critical Value Read Back Blood Gas TM Notified Whom Blood Gas 05/07/2018 10:27: Notified Time 00 AM Bedside Glucose 78 Imaging Imaging ECG with sinus tachycardia at 120 bpm, QRS 82 ms, nonspecific ST abnormalities, PVC Medications Medications Current Medications IV Flush (NS 10 ml) 10 ml PRN IV ; Start 05/06/18 at 20:30 Cefepime HCl 50 ml @ 100 mls/hr Q12 IVPB Last administered on 05/07/18at 08:52; Admin Dose 100 MLS/HR; Start 05/07/18 at 09:00 Sodium Chloride 1,000 ml @ 125 mls/hr Q8H IV Last administered on 05/07/18 07:22; Admin Dose 125 MLS/HR; Start 05/06/18 at 23:30 Ascorbic Acid (Vitamin C) 500 mg DAILY GTB Last administered on 05/07/18 08:51; Admin Dose 500 MG; Start 05/07/18 at 09:00 Aspirin (Aspirin) 81 mg DAILY GTB Last administered on 05/07/18 08:52; Admin Dose 81 MG; Start 05/07/18 at 09:00 Albuterol/ Ipratropium (Duoneb) 3 ml Q2H RESP THERAPY PRN HHN SHORTNESS OF BREATH; Start 05/06/18 at 23:30 Albuterol/ Ipratropium (Duoneb) 3 ml Q6H RESP THERAPY HHN Last administered on 05/07/18 08:26; Admin Dose 3 ML; Start 05/07/18 at 02:00 Lorazepam (Ativan Intensol) 0.5 mg Q6H PRN PEG ANXIETY; Start 05/06/18 at 23:30 Quetiapine Fumarate (Seroquel) 300 mg HS GTB ; Start 05/07/18 at 21:00 Valproate Sodium (Depakene Liquid Cup) 100 mg QHS GTB ; Start 05/07/18 at 21:00 Zinc Sulfate (Zinc Sulfate) 220 mg DAILY GTB Last administered on 05/07/18 08:52; Admin Dose 220 MG; Start 05/07/18 at 09:00 Norepinephrine 250 ml @ 1.875 mls/ hr TITRATE IV Last administered on 05/07/18at 00:50; Admin Dose 3.75 MLS/HR; Start 05/07/18 at 00:00 Lansoprazole (Prevacid) 30 mg DAILY@06 GTB Last administered on 05/07/18 06:09; Admin Dose 30 MG; Start 05/07/18 at 06:00 Ondansetron HCl (Zofran Tab) 4 mg Q6H PRN GTB NAUSEA AND/OR VOMITING; Start 05/07/18 at 00:15 Multivitamins (Multivitamin) 30 ml DAILY GTB Last administered on 3/21/19at 08: 52; Admin Dose 30 ML; Start 05/07/18 at 09:00 Epoetin Zen (Epogen (Esrd)) 20,000 units Tu@1700 SC ; Start 05/12/18 at 17:00 Evangelista Scanlon DO May 07, 2018 13:21
--- NOTE | 2018-05-07 16:26 | CONS ---
DATE OF ADMISSION: 05/06/2018 DATE OF CONSULTATION: 05/07/2018 TYPE OF CONSULTATION: Nephrology. REASON FOR CONSULTATION: Acute kidney injury. PHYSICIAN REQUESTING CONSULT: Roland Giron MD HISTORY OF PRESENT ILLNESS: This is a 73-year-old female with a past medical history of COPD, histor y of respiratory failure, history of CKD, history of AFib, who presents to [facility] from her half-way facility with increased lethargy and weakness. The patien t upon arrival in the emergency room was noted to be hyponatremic with sodium level of 122. The rosetta ent also had a markedly elevated BUN and creatinine. The patient was also noted to be hypotensive an d was diagnosed with septic shock, started on IV fluids, antibiotic therapy and admitted to intensive care unit. In terms of patient's renal history, the patient has a history of chronic kidney disease with previou s baseline creatinine around 1.2 to 1.8 mg/dL. The patient, on admission has creatinine of 3.05 mg/d L. The patient was also noted to be hyponatremic with a sodium level of 122 mg/dL. There is no repo rt of any hemoptysis, hematemesis or hematochezia. PAST MEDICAL HISTORY: As stated above, history of chronic kidney disease, history of respiratory cem lure, history of coronary artery disease, history of AFib, history of anemia, history of hypertension , history of dysphagia. PAST SURGICAL HISTORY: Status post trach, status post PEG, status post decannulation. FAMILY HISTORY: No family history of kidney disease. SOCIAL HISTORY: Lives in skilled nurse facility. MEDICATIONS: Have been reviewed. ALLERGIES: PLEASE SEE LIST. REVIEW OF SYSTEMS: Unable to adequately do review of systems as the patient is altered. Pertinent p ositives as obtained by reviewing medical records, speaking to hospital staff, stated in HPI; otherwi se negative. PHYSICAL EXAMINATION: VITAL SIGNS: Blood pressure is 117/41, respiration 19, pulse 118, temperature 99.8. HEENT: Head is normocephalic. NECK: Supple. HEART: Regular rate. LUNGS: Show diminished breath sounds at the base. ABDOMEN: Soft, nontender to palpation without rebound or guarding. EXTREMITIES: Negative for clubbing, cyanosis. Trace edema. DERMATOLOGIC: No rashes. MUSCULOSKELETAL: No joint effusions. NEUROLOGIC: Limited exam. LABORATORY DATA: Show sodium 130, potassium 3.8, BUN 147, creatinine 2.90, glucose is 60. Urinalysi s shows pyuria, hematuria and proteinuria. White count is 16.9, hemoglobin 9.3, platelet count 290. The patient's ABG was reviewed. DIAGNOSTIC DATA: Renal ultrasound was reviewed, which showed mild left-sided hydronephrosis. Chest x-ray was reviewed. ASSESSMENT AND PLAN: This is a 73-year-old female who presents with: 1. Nonoliguric acute kidney injury on top of chronic kidney disease with previous baseline creatinin e around 1.5 to 2 mg/dL. Etiology of current acute tubular injury is secondary to sepsis, volume dep letion, possible tubular injury. Lower suspicion for acute glomerulonephritis or vasculitis given wiley still's clinical presentation. Please note, the patient has elevated azotemia which may be secondary to acute kidney injury; however need to monitor for any other contributing factors such as possible gastrointestinal bleed. Please also note the patient's urinalysis does show evidence of pyuria, toni turia. Renal ultrasound was reviewed. Recommendation at this point is to continue current medical m anagement. Continue pressor support to maintain MAP of 65. Continue aggressive IV hydration. Esvin nue IV antibiotics. Otherwise, continue supportive care, renally dose all meds, avoid nephrotoxins. There is no immediate need or indication for renal replacement therapy at this time. We will monito r closely. 2. Hyponatremia. Etiology is secondary to acute kidney injury and chronic kidney disease, decreased free water urinary excretion. The patient's sodium levels have improved appropriately in a 24-hour period after IV hydration. We will continue to monitor closely. 3. Anion gap metabolic acidosis. Etiology is secondary to acute kidney injury. The patient's ABG w as reviewed. The patient is appropriately compensated. At this point, we will continue to monitor. We will give 1 amp of bicarbonate and monitor serial ABGs closely. 4. Anemia. Monitor hemoglobin and hematocrit levels. 5. Mineral bone disorder. Monitor calcium and phosphatase levels. 6. Septic shock. Etiology is felt to be secondary to urinary tract infection. Continue current med ical management. Continue current pressor support, antibiotic therapy, IV fluids. 7. History of respiratory failure, status post decannulation. Continue to monitor. 8. Dysphagia, status post PEG. Resume tube feeding once clinically stable. 9. Atrial fibrillation, currently in sinus rhythm. Continue to monitor. Follow up with cardiology. 10. Acute encephalopathy. Etiology is toxic metabolic. 11. History of bipolar disorder. 12. History of anterior pelvic wall abscess. 13. History of myopathy. 14. History of heart failure. The patient appears compensated. Continue to monitor. Thank you, Dr. Giron, for this interesting consult. It will be a pleasure to follow the patient w ith you throughout the hospital course. Dictated By: JEANA BANSAL DO NR/NTS Conf#: [id number] DID#: [id number] CC: ROLAND GIRON MD; MANN VALDEZ MD;*[facility]*
[2018-05-07] MEDS: VALPROIC ACID LIQUID CUP 250 MG/5 ML CUP GTB SCH (20:38)
[2018-05-07] MEDS: QUETIAPINE 100 MG TAB GTB SCH (20:38)
[2018-05-07] MEDS ORDERED: DIGOXIN 500 MCG INJ IV ONE (23:00)
[2018-05-08] VITALS (84 sets, daily range): BP systolic 75–156; BP diastolic 33–95; PULSE 68–165; RESP 15–36
--- NOTE | 2018-05-08 01:34 | PN ---
DATE: 05/07/2018 LOCATION: Intensive care unit. SUBJECTIVE: Follow up on septic shock due to urinary tract infection, acute on chronic kidney diseas e, COPD, hyponatremia, bipolar disorder, recent upper GI bleed, paroxysmal atrial fibrillation, dysph agia. The patient remains awake and responsive. The patient remains on Levophed drip for septic brandin ck. Denies any chest pain or abdominal pain. The patient does not have any resting leg pain. The p atient did not have any temperature spike. Since this morning, the patient remains tachycardic with marginal blood pressure. The patient denies any chest pain, cough or wheezing. PHYSICAL EXAMINATION: GENERAL: The patient is awake and responsive but does appear weak. VITAL SIGNS: Temperature 98.5, pulse between 104 to 133, blood pressure 99/64, O2 saturation 95% on 3 liters cannula, respirations 21. HEENT: No eye discharge or redness. Conjunctivae and lids are normal. Oropharynx clear. NECK: Supple, no mass, no thyromegaly. CHEST: Diminished air entry at bases. No use of accessory muscles. CARDIOVASCULAR: Sinus tachycardia. No murmur, gallop, or rub. ABDOMEN: Soft, nondistended, nontender. G-tube in place. EXTREMITIES: Edematous chronic left leg wound, dressing intact and chronic right third toe tip is ga ngrenous. NEUROLOGIC: The patient is awake, alert with generalized weakness in all extremities. LABORATORY DATA: Done this morning, WBC have gone up to 16.9, hemoglobin 9.3, platelets 290. The pa tient has 24 bands. Sodium 130 up from 122, potassium 3.8, BUN 147 down from 172, creatinine 2.9 tamiko n from 3, glucose 78. Urine culture is growing gram-negative rods. Blood cultures so far negative. Renal ultrasound was negative for any kidney stones. Mild right-sided nephrosis. IMPRESSION: 1. Septic shock due to urinary tract infection. Continue IV cefepime. The patient is being followe d by Dr. Doyle from infectious disease standpoint. 2. Chronic obstructive pulmonary disease. Continue breathing treatment and supplemental oxygen. 3. Paroxysmal atrial fibrillation. The patient is currently in sinus rhythm, we will continue to mo nitor. Continue amiodarone, baby aspirin and Protonix. 4. Paroxysmal atrial fibrillation. Continue aspirin. The patient currently is in sinus rhythm. No beta tin or calcium channel tin due to low marginal blood pressure. We will continue IV vas opressor. 5. Bipolar disorder. Continue Seroquel. 6. Dysphagia. We will initiate tube feeding. 7. Critical care polyneuropathy/myopathy. We will start PT, OT once she is off vasopressor. 8. Acute on chronic kidney disease, improving. Continue IV fluids. 9. Anemia of chronic kidney disease. Continue Epogen. Plan of care discussed with multiple consultants and also ICU nurse. Total critical care time spent 30 minutes. We will continue to follow and we will order followup lab s. The patient remains critically ill and will continue to be monitored in the ICU. Cardiology cons ult from Dr. Scanlon, nephrology consult from Dr. Mckeon, infectious disease consult from Dr. Doyle have been requested. Dictated By: ROLAND GIRON MD AB/NTS Conf#: [id number] DID#: [id number] CC: ROLAND GIRON MD;*[facility]*
[2018-05-08] MEDS: ALBUTEROL/IPRATROPIUM (NEB) 3 ML AMP HHN SCH ×4 (01:39→20:09)
[2018-05-08] MEDS: NORepinephrine 8MG/250 ML (PMX 250 ML IV SCH ×2 (03:19→13:33)
[2018-05-08] MEDS: LANSOPRAZOLE 30 MG CAP GTB SCH (06:11)
[2018-05-08] MEDS: SOD CHLORIDE 0.9% 1,000 ML IV SCH ×2 (06:11→18:04)
--- NOTE | 2018-05-08 07:53 | CONS ---
Assessment/Plan Assessment/Plan Assessment/Plan (Daily) Assessment Septic shock Hypotension on IV pressor History of respiratory failure status post decannulation Preserved ejection fraction Paroxysmal atrial fibrillation, currently sinus rhythm Acute kidney injury Plan: afib likely contributed by pressors dig low dose x 1 will consider ac but question of risk> benefit Consultation Date/Type/Reason Admit Date/Time May 06, 2018 at 17:38 Initial Consult Date 05/07/18 Type of Consult Cardiology Requesting Provider: ROLAND GIRON MD Date/Time of Note DATE: 05/08/18 TIME: 07:51 24 HR Interval Summary Subjective hx not possible: pt non-verbal, pt critical status Exam/Review of Systems Vital Signs Vitals Vital Signs Date Temp Pulse Resp B/P (MAP) Pulse Ox O2 O2 Flow FiO2 Time Delivery Rate 05/08/18 112 24 106/48 96 Nasal 04:45 (67) Cannula 05/08/18 99.5 04:00 05/08/18 3.0 31 02:11 Intake and Output 05/07/18 05/07/18 05/08/18 1515:00 23:00 07:00 IntakeIntake Total 1080.00 ml 889.98 ml 990.895 ml OutputOutput Total 525 ml 130 ml 125 ml BalanceBalance 555.00 ml 759.98 ml 865.895 ml Exam Constitutional: non-verbal Head: normocephalic, atraumatic Neck: jvd Respiratory: diminished breath sounds Cardiovascular: irregular rhythm Gastrointestinal: soft Musculoskeletal: nl extremities to inspection Extremities: normal pulses Labs Result Diagram: 05/08/1820 05/08/18 0520 Results 24hrs Laboratory Tests Test 05/07/18 09:49 05/07/18 11:23 05/07/18 16:30 05/08/18 05:20 Blood Gas Blood arterial Specimen Source Arterial Blood 05/07/2018 10:19: Date Drawn 00 AM Arterial Blood pH 7.255 *L (Temp corrected) Arterial Blood 28.2 L pCO2 (Temp correct) Arterial Blood 68.1 L pO2 (Temp corrected) Arterial Blood 12.2 L HCO3 Arterial Blood -13.5 L Base Excess Arterial Blood 91.8 L Oxygen Saturation Steven Test ACCEPTAB Arterial Blood Left Radial Gas Puncture Site Arterial 0.9 Blood Carboxyhemo globin Arterial Blood 0.4 Methemoglobin Blood Gas A-a O2 112.7 H Differential Oxyhemoglobin 90.6 L Percent Blood Gas 37.0 Temperature Blood Gas NASAL CANNULA Modality FiO2 30.0 Blood Gas LPEREZ RN Critical Value Read Back Blood Gas TM Notified Whom Blood Gas 05/07/2018 10:27: Notified Time 00 AM Bedside Glucose 78 Urine Color PRERNA Urine Clarity TURBID A Urine pH 5.0 Urine Specific 1.012 [place] Urine Ketones TRACE A Urine Nitrite NEGATIVE Urine Bilirubin NEGATIVE Urine NEGATIVE Urobilinogen Urine Leukocyte 3+ H Esterase Urine Microscopic 94 H RBC Urine Microscopic > 182 H WBC Urine Bacteria FEW A Urine Hemoglobin 3+ H Urine Random 30.95 Creatinine Urine Random 27 L Sodium Urine Glucose NEGATIVE Urine Total 127.0 H Protein White Blood Count 16.8 H Red Blood Count 2.36 L Hemoglobin 8.1 L Hematocrit 25.0 L Mean Corpuscular 105.9 H Volume Mean Corpuscular 34.3 H Hemoglobin Mean Corpuscular 32.4 Hemoglobin Concen t Red Cell 13.7 Distribution Width Platelet Count 299 Mean Platelet 9.8 Volume Immature 1.800 H Granulocytes % Neutrophils % 89.3 H Lymphocytes % 1.7 L Monocytes % 7.0 Eosinophils % 0.1 Basophils % 0.1 Nucleated Red 0.0 Blood Cells % Immature 0.310 H Granulocytes # Neutrophils # 15.0 H Lymphocytes # 0.3 L Monocytes # 1.2 H Eosinophils # 0.0 Basophils # 0.0 Nucleated Red 0.0 Blood Cells # Sodium Level 133 L Potassium Level 3.3 L Chloride Level 102 Carbon Dioxide 13 L Level Anion Gap 18 H Blood Urea 129 H Nitrogen Creatinine 2.67 H Est Glomerular Filtrat Rate mL/min Glucose Level 224 #H Calcium Level 8.3 L Phosphorus Level 3.9 Magnesium Level 1.7 Medications Medications Current Medications IV Flush (NS 10 ml) 10 ml PRN IV ; Start 05/06/18 at 20:30 Cefepime HCl 50 ml @ 100 mls/hr Q12 IVPB Last administered on 05/07/18at 20:38; Admin Dose 100 MLS/HR; Start 05/07/18 at 09:00 Sodium Chloride 1,000 ml @ 100 mls/hr Q10H IV Last administered on 05/08/18at 06:11; Admin Dose 125 MLS/HR; Start 05/06/18 at 23:30 Ascorbic Acid (Vitamin C) 500 mg DAILY GTB Last administered on 05/07/18 08:51; Admin Dose 500 MG; Start 05/07/18 at 09:00 Aspirin (Aspirin) 81 mg DAILY GTB Last administered on 05/07/18 08:52; Admin Dose 81 MG; Start 05/07/18 at 09:00 Albuterol/ Ipratropium (Duoneb) 3 ml Q2H RESP THERAPY PRN HHN SHORTNESS OF BREATH; Start 05/06/18 at 23:30 Albuterol/ Ipratropium (Duoneb) 3 ml Q6H RESP THERAPY HHN Last administered on 05/08/18 01:39; Admin Dose 3 ML; Start 05/07/18 at 02:00 Lorazepam (Ativan Intensol) 0.5 mg Q6H PRN PEG ANXIETY; Start 05/06/18 at 23:30 Quetiapine Fumarate (Seroquel) 300 mg HS GTB Last administered on 05/07/18at 20:38; Admin Dose 300 MG; Start 05/07/18 at 21:00 Valproate Sodium (Depakene Liquid Cup) 100 mg QHS GTB Last administered on 05/07/18 20:38; Admin Dose 100 MG; Start 05/07/18 at 21:00 Zinc Sulfate (Zinc Sulfate) 220 mg DAILY GTB Last administered on 05/07/18 08:52; Admin Dose 220 MG; Start 05/07/18 at 09:00 Lansoprazole (Prevacid) 30 mg DAILY@06 GTB Last administered on 05/08/18at 06:11; Admin Dose 30 MG; Start 05/07/18 at 06:00 Ondansetron HCl (Zofran Tab) 4 mg Q6H PRN GTB NAUSEA AND/OR VOMITING; Start 05/07/18 at 00:15 Multivitamins (Multivitamin) 30 ml DAILY GTB Last administered on 05/07/18 08:52; Admin Dose 30 ML; Start 05/07/18 at 09:00 Epoetin Zen (Epogen (Esrd)) 20,000 units Tu@1700 SC ; Start 05/12/18 at 17:00 Norepinephrine 250 ml @ 1.875 mls/ hr TITRATE IV Last administered on 05/08/18at 03:19; Admin Dose 30 MLS/HR; Start 05/08/18 at 03:00 Potassium Chloride (Potassium Chloride Pwd/Soln) 40 meq ONCE ONCE GTB ; Start 05/08/18 at 08:00; Stop 05/08/18 at 08:01 NICOLAS SMYTH MD May 08, 2018 07:53
[2018-05-08] MEDS: CEFEPIME 1GM/50 ML (PMX) 50 ML IVPB SCH (07:55)
[2018-05-08] MEDS: MULTIVITAMINS 30 ML CUP GTB SCH (07:55)
[2018-05-08] MEDS: ZINC SULFATE 220 MG CAP GTB SCH (07:55)
[2018-05-08] MEDS: ASPIRIN 81 MG TAB GTB SCH (07:55)
[2018-05-08] MEDS: ASCORBIC ACID 500 MG TAB GTB SCH (07:55)
[2018-05-08] MEDS ORDERED: POTASSIUM CHLORIDE 20 MEQ POWDER FOR ORAL SOLN GTB ONE ×2 (08:00)
[2018-05-08] MEDS ORDERED: DIGOXIN 500 MCG INJ IV ONE (08:00)
[2018-05-08] MEDS ORDERED: MAGNESIUM SULFATE 2 GM/50 ML 50 ML IVPB ONE (08:00)
--- NOTE | 2018-05-08 08:09 | PN ---
DATE: 05/08/2018 SUBJECTIVE: The patient is currently ill on pressor support. The patient is tachycardic overnight. No other acute events noted. OBJECTIVE: VITAL SIGNS: Blood pressure is 106/48, respirations 24, pulse 112, temperature 99.5. HEENT: Head is normocephalic. NECK: Supple. HEART: Regular rate. LUNGS: Show diminished breath sounds at the base. ABDOMEN: Soft, nontender to palpation without rebound or guarding. EXTREMITIES: Negative for clubbing, cyanosis, no edema. DERMATOLOGIC: No rashes. MUSCULOSKELETAL: No joint effusion. NEUROLOGIC: No change in exam. MEDICATIONS: Reviewed. LABORATORY DATA: Shows sodium 133, potassium 3.3, BUN 29, creatinine 2.64, glucose is 225. White co unt 16.8, hemoglobin 8.1, platelet count is 299. The patient's urine cultures were reviewed. ASSESSMENT AND PLAN: 1. Nonoliguric acute kidney injury on top of chronic kidney disease with previous baseline creatinin e of 1.5 to 2 mg/dL. Etiology of acute kidney injury is secondary to sepsis, volume depletion, possi ble tubular injury. The patient's renal function has been improving with IV fluids, pressor support and antibiotic therapy. At this point, we will continue current treatment plan. Continue current me dical management. Continue to renally dose all medicines, avoid nephrotoxins. There is no immediate need for renal replacement therapy. 2. Hypernatremia, etiology is secondary to acute kidney injury, chronic kidney disease causing decre ased free water urinary excretion. The patient's sodium levels are improving. Continue to monitor. 3. Hypokalemia. We will replete with potassium chloride. 4. Metabolic acidosis, anion gap with respiratory compensation. Continue to monitor bicarbonate lev els. 5. Anemia. Continue to monitor hemoglobin and hematocrit levels. 6. Mineral bone disorder, monitor calcium and phosphorus levels. 7. Septic shock, etiology is secondary to urinary tract infection. Continue medical management. Co ntinue pressor support, antibiotics and IV fluids. 8. Tachyarrhythmia. Etiology is secondary to underlying atrial fibrillation. 9. Sepsis, possible Levophed. We will defer to cardiology. May consider adjusting pressor support and Earnest-Synephrine. 10. Chronic respiratory failure. The patient is status post decannulation. Continue to monitor melanie al cannula. 11. Dysphagia, status post PEG, resume tube feeding once stable. 12. Acute encephalopathy. Etiology is toxic metabolic. 13. History of heart failure. The patient is currently compensated, hypovolemic. Continue to monit or closely on IV fluids. Please note I spent over 30 minutes of critical care time with this patient. Dictated By: JEANA BANSAL DO NR/NTS Conf#: [id number] DID#: [id number] CC: ROLAND GIRON MD; MANN VALDEZ MD;*EndCC*
--- NOTE | 2018-05-08 11:22 | CONS ---
Assessment/Plan Assessment/Plan Hospital Course (Demo Recall) sepsis, SIRS, pulmonary - Severe sepsis with septic shock d/t complicated UTI +/- anterior neck skin and soft tissue infection - UTI d/t Kleb pneumoniae CRE and Strep agalactiae (grp B) 05/06/2018 - chronic hypoxic respiratory failure - on low flow oxygen - anterior neck wound post decannulation with 1+GNR - recent decannulation - h/o tracheostomy on 06/11/2017 - s/p SIRS from UGIB; Pt's WBC level improved with hydration and without antibiotic, improved - s/p pneumonia vs. colonization of the airway by pseudomonas and ESBL+klebsiella - h/o possible, recurrent HCAP due to pseudomonas and ESBL+klebsiella - h/o recurrent HCAP due to MRSA and Enterobacter (culture of tracheal aspirate on 07/16/2017 that was collected at [facility]) . Pt took vancomycin and ceftazidime - h/o acute respiratory distress post-thoracentesis, resolved - h/o thoracentesis on 07/18/2017, transudative (protein <2, LDH 279) - h/o bleeding from the trach site which might precipitated another episode of aspiration or pneumonitis - h/o septic shock due to pneumonia, ARDS, bacteremia, fungemia - h/o pneumonia with ARDS prior to transfer to [facility] - h/o smoking - COPD - ILD Cardiac - PAF, currently sinus tachycardia GI - dysphagia, s/p PEG placement 06/13/2018 - on GTF but previously was eating - s/p coffee ground emesis/UGIB 12/23/2017 due to deep ulceration of distal esophagus and gastritis on EGD 12/26/2017. No e/o H. pylori - h/o possible appendicitis on CT on 11/22/2017, Pt's RLQ is not TTP. Pt took ertapenem (11/24/2017-12/01/2017) - h/o intermittent diarrhea, C diff negative 07/30/2017 (Pt had multiple negative C. diff tests at [facility] at [facility]SH prior to transfer here) - h/o extensive adhesions lower abdominal and pelvis between small bowel to each other and to colon and to abdominal wall, anterior pelvic wall chronic abscess secondary to probably an old perforated diverticulitis, torsion of small bowel around these dense adhesion causing multiple obstructive points - h/o laparoscopic exploration and extensive lysis of adhesions and drainage of anterior pelvic wall abscess 09/16/2017. Cultures were negative, no e/o malignancy. Pt took pip/tazo (09/16/2017-09/26/2017) - h/o partial obstruction mid jejunum in L anterior central pelvis with suggestion of a 3 cm soft tissue mass on CT 08/28/2017 - h/o internal stomal deep ulcer behind the internal bumper, gastritis and esophagitis, Rodriguez's cannot be ruled out, per EGD with biopsy 07/23/2017 - h/o GIB s/p flex sig showed polyp; stool OB negative on 06/29/17 - h/o stool OB positive - h/o SBO and ileus due to pain meds - h/o EGD and exchange of PEG on 09/01/2017 - h/o mildly elevated CEA renal/ - recurrent NATHAN on CKD - Hyponatremia - Hyperkalemia, now hypokalemia - Metabolic acidosis - h/o vaginal bleed - h/o colonization of urinary tract by ESBL+klebsiella, VRE - h/o recurrent, symptomatic UTI due to carbapenem-resistant kleb (MDR strain) per urine culture 10/04/17, 10/09/17, 10/21/2017, P took colistin (10/09/2017- 10/15/2017), fosfomycin for carbapenemase-producing klebsiella and VRE on 10/25/2017 and 10/28/2017 - h/o funguria - urinary retention, Pt now has a Garza catheter. In the past she gets catheterized by Pt's RN q6-12hrs but is sometimes non-compliant fungemia, bacteremia - h/o bacteremia due to coag negative Staph, probable contaminant as her WBC level improved initially without antibiotic - 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 improved. Probable manifestation of endocarditis. Pt declined MRI on 08/06/2017 - h/o infection of wound of LLE - h/o debridement of wound of LLE on 08/06/2017 - h/o infection of R toes due to pseudomonas. coagulase negative Staph likely a colonizer. resolved - h/o intertrigo of the groin, resolved with nystatin powder - h/o scabies, locally crusted lesion over L scapula, s/p permethrin cream and pGT ivermectin on 08/11/2017, 08/12/2017, 08/19/2017. Repeat skin scraping on 08/21/2017 was negative for scabies psych, neuro - acute toxic metabolic encephalopathy - decreased hearing b/l - h/o critical illness polyneuropathy - anxiety/depression, bipolar d/o, seen by Psychiatry in the past - chronic pain syndrome hematological, vascular - Macrocytic anemia - chronic anemia requiring blood transfusion intermittently - 3.1 cm AAA on imaging - PVD other chronic conditions - adrenal insufficiency - protein calorie malnutrition - medical non-compliance: she would refuse her medications, treatment and straight catheterization at times Recommendations: - Change Cefepime to renally dosed IV Colistin (05/08/2018-). I spoke to Claudia talbot [employer] and requested CRE in urine to be tested against colistin, Avycaz, Zerbaxa, and Vabomere - Add ceftriaxone (05/08/2018-) - F/u blood cultures (NGTD), final urine culture (prelim Kleb CRE and group B strep), and neck wound culture (GNR) - Monitor CrCl - Wean pressors as tolerated Management d/w [employer]SULTANT Emiliano, and with Dr. Doyle Critical care time spent: 60 min Consultation Date/Type/Reason Admit Date/Time May 06, 2018 at 17:38 Initial Consult Date 05/07/18 Type of Consult Infectious Disease Requesting Provider: ROLAND GIRON MD Date/Time of Note DATE: 05/08/18 TIME: 11:21 24 HR Interval Summary Free Text/Dictation Remains on Levophed and urine cx growing Kleb pneumoniae CRE per d/w [employer] CONSULTANT. Review of labs 1 hour later, showed that urine cx also growing group B strep and neck wound cx growing GNR. Subjective hx not possible: pt non-verbal, pt critical status Exam/Review of Systems Exam Vitals Vital Signs Date Temp Pulse Resp B/P (MAP) Pulse Ox O2 O2 Flow FiO2 Time Delivery Rate 05/08/18 110 23 98/45 (62) 95 10:45 05/08/18 Nasal 10:00 Cannula 05/08/18 3.0 31 08:33 05/08/18 99.4 08:00 Intake and Output 05/07/18 05/07/18 05/08/18 1515:00 23:00 07:00 IntakeIntake Total 1080.00 ml 889.98 ml 1155.895 ml OutputOutput Total 525 ml 130 ml 175 ml BalanceBalance 555.00 ml 759.98 ml 980.895 ml Constitutional: well developed, frail, obese Psych: other (unable to assess) Head: normocephalic, atraumatic ENMT: nl external ears & nose, other (MM pink and dry; mouth breathing) Neck: other (Anterior neck dressing c/d/i (recent decannulation) - photo reviewed in chart) Respiratory: diminished breath sounds (mild upper airway coarse breath sounds), other (On O2 at 3L via NC) Cardiovascular: nl pulses, other (tachycardic, regular rhythm) Gastrointestinal: soft, non-tender, bowel sounds (normoative), surgical scars, other (G-tube with tube feed in progress) Genitourinary - Female: other (Garza in place with hazy gregor urine) Musculoskeletal: muscle weakness Extremities: other (RUE PICC c/d/i; bilateral foot drop) Neurological: lethargic (asleep) Skin: nl turgor, other (LLE wrapped with Kerlix intact with blood stain. Heels covered with foam dressing. Nurses notes and photos in chart reviewed. Stage 2 sacral decub with MASD) Results Result Diagram: 05/08/18 0520 05/08/18 0520 Results 24hrs Laboratory Tests Test 05/07/18 11:23 05/07/18 16:30 05/08/18 05:20 Bedside Glucose 78 Urine Color GREGOR Urine Clarity TURBID A Urine pH 5.0 Urine Specific [place] 1.012 Urine Ketones TRACE A Urine Nitrite NEGATIVE Urine Bilirubin NEGATIVE Urine Urobilinogen NEGATIVE Urine Leukocyte Esterase 3+ H Urine Microscopic RBC 94 H Urine Microscopic WBC > 182 H Urine Bacteria FEW A Urine Hemoglobin 3+ H Urine Random Creatinine 30.95 Urine Random Sodium 27 L Urine Glucose NEGATIVE Urine Total Protein 127.0 H White Blood Count 16.8 H Red Blood Count 2.36 L Hemoglobin 8.1 L Hematocrit 25.0 L Mean Corpuscular Volume 105.9 H Mean Corpuscular Hemoglobin 34.3 H Mean Corpuscular Hemoglobin Concent 32.4 Red Cell Distribution Width 13.7 Platelet Count 299 Mean Platelet Volume 9.8 Immature Granulocytes % 1.800 H Neutrophils % 89.3 H Lymphocytes % 1.7 L Monocytes % 7.0 Eosinophils % 0.1 Basophils % 0.1 Nucleated Red Blood Cells % 0.0 Immature Granulocytes # 0.310 H Neutrophils # 15.0 H Lymphocytes # 0.3 L Monocytes # 1.2 H Eosinophils # 0.0 Basophils # 0.0 Nucleated Red Blood Cells # 0.0 Sodium Level 133 L Potassium Level 3.3 L Chloride Level 102 Carbon Dioxide Level 13 L Anion Gap 18 H Blood Urea Nitrogen 129 H Creatinine 2.67 H Est Glomerular Filtrat Rate mL/min Glucose Level 224 #H Calcium Level 8.3 L Phosphorus Level 3.9 Magnesium Level 1.7 Imaging Imaging Renal US 05/07/2018: Mild right-sided hydronephrosis. Small left kidney with a simple cyst. Medications Medication Current Medications IV Flush (NS 10 ml) 10 ml PRN IV ; Start 05/06/18 at 20:30 Cefepime HCl 50 ml @ 100 mls/hr Q12 IVPB Last administered on 05/08/18at 07:55; Admin Dose 100 MLS/HR; Start 05/07/18 at 09:00 Sodium Chloride 1,000 ml @ 100 mls/hr Q10H IV Last administered on 05/08/18at 06:11; Admin Dose 125 MLS/HR; Start 05/06/18 at 23:30 Ascorbic Acid (Vitamin C) 500 mg DAILY GTB Last administered on 05/08/18at 07:55; Admin Dose 500 MG; Start 05/07/18 at 09:00 Aspirin (Aspirin) 81 mg DAILY GTB Last administered on 05/08/18at 07:55; Admin Dose 81 MG; Start 05/07/18 at 09:00 Albuterol/ Ipratropium (Duoneb) 3 ml Q2H RESP THERAPY PRN HHN SHORTNESS OF BREATH; Start 05/06/18 at 23:30 Albuterol/ Ipratropium (Duoneb) 3 ml Q6H RESP THERAPY HHN Last administered on 05/08/18at 08:33; Admin Dose 3 ML; Start 05/07/18 at 02:00 Lorazepam (Ativan Intensol) 0.5 mg Q6H PRN PEG ANXIETY; Start 05/06/18 at 23:30 Quetiapine Fumarate (Seroquel) 300 mg HS GTB Last administered on 05/07/18at 20:38; Admin Dose 300 MG; Start 05/07/18 at 21:00 Valproate Sodium (Depakene Liquid Cup) 100 mg QHS GTB Last administered on 05/07/18at 20:38; Admin Dose 100 MG; Start 05/07/18 at 21:00 Zinc Sulfate (Zinc Sulfate) 220 mg DAILY GTB Last administered on 05/08/18at 07:55; Admin Dose 220 MG; Start 05/07/18 at 09:00 Lansoprazole (Prevacid) 30 mg DAILY@06 GTB Last administered on 05/08/18at 06:11; Admin Dose 30 MG; Start 05/07/18 at 06:00 Ondansetron HCl (Zofran Tab) 4 mg Q6H PRN GTB NAUSEA AND/OR VOMITING; Start 05/07/18 at 00:15 Multivitamins (Multivitamin) 30 ml DAILY GTB Last administered on 05/08/18at 07:55; Admin Dose 30 ML; Start 05/07/18 at 09:00 Epoetin Zen (Epogen (Esrd)) 20,000 units Tu@1700 SC ; Start 05/12/18 at 17:00 Norepinephrine 250 ml @ 1.875 mls/ hr TITRATE IV Last administered on 05/08/18at 03:19; Admin Dose 30 MLS/HR; Start 05/08/18 at 03:00 LAURA JOSHI NP May 08, 2018 11:22
[2018-05-08] MEDS ORDERED: CEFEPIME 1GM/50 ML (PMX) 50 ML IVPB SCH (13:00)
[2018-05-08] MEDS: CEFTRIAXONE 1 GM/50 ML (PMX) 50 ML IVPB SCH (13:25)
[2018-05-08] MEDS: COLISTIMETHATE 150 MG in SOD CHLORIDE 0.9% 100 ML IVPB SCH (14:58)
[2018-05-08] MEDS: QUETIAPINE 100 MG TAB GTB SCH (20:07)
[2018-05-08] MEDS: VALPROIC ACID LIQUID CUP 250 MG/5 ML CUP GTB SCH (20:07)
[2018-05-09] VITALS (98 sets, daily range): BP systolic 75–158; BP diastolic 31–100; PULSE 109–161; RESP 13–37
[2018-05-09] MEDS: ALBUTEROL/IPRATROPIUM (NEB) 3 ML AMP HHN SCH ×4 (02:16→19:54)
[2018-05-09] MEDS: SOD CHLORIDE 0.9% 1,000 ML IV SCH ×2 (04:10→15:16)
[2018-05-09] MEDS: LANSOPRAZOLE 30 MG CAP GTB SCH (05:11)
[2018-05-09] MEDS ORDERED: DIGOXIN 500 MCG INJ IV ONE (07:30)
[2018-05-09] MEDS ORDERED: POTASSIUM CHLORIDE 20 MEQ POWDER FOR ORAL SOLN GTB ONE (08:00)
[2018-05-09] MEDS: MULTIVITAMINS 30 ML CUP GTB SCH (08:36)
[2018-05-09] MEDS: ZINC SULFATE 220 MG CAP GTB SCH (08:36)
[2018-05-09] MEDS: ASCORBIC ACID 500 MG TAB GTB SCH (08:36)
[2018-05-09] MEDS: ASPIRIN 81 MG TAB GTB SCH (08:36)
[2018-05-09] MEDS: CITRIC ACID/NA CITRATE 30 ML CUP PO SCH ×3 (08:45→22:00)
[2018-05-09] MEDS: PHENYLephrine 20MG IN 250 ML 250 ML IV SCH ×2 (08:45→11:22)
--- NOTE | 2018-05-09 08:58 | PN ---
DATE: 05/09/2018 SUBJECTIVE: The patient is currently on pressor support. Being weaned down. The patient has adequa te urinary output. No other events noted. OBJECTIVE: VITAL SIGNS: Blood pressure 75/43, respirations 17, pulse 147, temperature 98.6. HEENT: Head is normocephalic. NECK: Supple. HEART: Regular rate. LUNGS: Show diminished breath sounds at base. ABDOMEN: Soft, nontender to palpation without rebound or guarding. EXTREMITIES: Negative for clubbing, cyanosis. Positive edema. DERMATOLOGIC: No rashes. MUSCULOSKELETAL: No joint effusions. NEUROLOGIC: No change in exam. MEDICATIONS: The patient's medications have been reviewed. LABORATORY DATA: Shows sodium 140, potassium 3.2, chloride 112, bicarbonate 12, BUN 126, creatinine 2.40. White count 16.3, hemoglobin 6.7, platelet count is 274. ASSESSMENT AND PLAN: 1. Nonoliguric acute kidney injury on top of chronic kidney disease with previous baseline creatinin e around 2 to 2.5 mg/dL. Etiology of acute kidney injury was secondary to sepsis, acute tubular necr osis. The patient's renal function has been slowly improving with IV fluids, pressor support and ant ibiotic therapy. The patient does have significant azotemia, which is multifactorial secondary to ac xuan kidney injury, chronic kidney disease, hypercatabolic state. At this point, we will continue to monitor renal function closely. Continue current treatment plan, continue supportive care, renally d ose all meds, no immediate need for renal replacement therapy at this time. 2. Hyponatremia, improved. Continue to monitor. 3. Hypokalemia. We will replete potassium chloride. 4. Metabolic acidosis with respiratory compensation. Will recheck an ABG. Start the patient on Bic itra. 5. Anemia. Continue to monitor hemoglobin and hematocrit levels. 6. Mineral bone disorder, monitor calcium and phosphorus levels. 7. Septic shock secondary to urinary tract infection. Continue current medical management. Continu e pressor support, wean off as tolerated. Continue antibiotics, IV fluids. 8. Tachyarrhythmia. Follow up with cardiology. May consider changing pressor support from Levophed to Earnest-Synephrine. 9. Chronic respiratory failure. Continue to monitor on nasal cannula. 10. Dysphagia, status post G-tube feeding. 11. Acute encephalopathy, etiology is toxic metabolic. 12. Heart failure. Continue to monitor closely on IV fluids. Please note, I spent over 30 minutes of critical care time with this patient. Dictated By: JEANA BANSAL DO NR/TABATHA Conf#: [id number] DID#: [id number] CC: ROLAND GIRON MD;*EndCC*
[2018-05-09] MEDS ORDERED: CEFEPIME 1GM/50 ML (PMX) 50 ML IVPB SCH (09:00)
--- NOTE | 2018-05-09 11:23 | CONS ---
Assessment/Plan Assessment/Plan Assessment/Plan (Daily) Assessment Septic shock Hypotension on IV pressor History of respiratory failure status post decannulation Preserved ejection fraction Paroxysmal atrial fibrillation, currently sinus rhythm Acute kidney injury Plan: change from levo to armen due to RVR dig as needed Consultation Date/Type/Reason Admit Date/Time May 06, 2018 at 17:38 Initial Consult Date 05/07/18 Type of Consult Cardiology Requesting Provider: ROLAND GIRON MD Date/Time of Note DATE: 05/09/18 TIME: 11:22 24 HR Interval Summary Free Text/Dictation intubated Subjective hx not possible: pt non-verbal, pt critical status Exam/Review of Systems Vital Signs Vitals Vital Signs Date Temp Pulse Resp B/P (MAP) Pulse Ox O2 O2 Flow FiO2 Time Delivery Rate 05/09/18 114 16 80/37 (51) 96 Nasal 3.0 11:00 Cannula 05/09/18 99.8 07:30 05/09/18 31 02:26 Intake and Output 05/08/18 05/08/18 05/09/18 1515:00 23:00 07:00 IntakeIntake Total 1137.50 ml 1418.125 ml 1440.000 ml OutputOutput Total 548 ml 432 ml 270 ml BalanceBalance 589.50 ml 986.125 ml 1170.000 ml Exam Constitutional: non-verbal Head: normocephalic, atraumatic Neck: jvd Respiratory: diminished breath sounds Cardiovascular: irregular rhythm Gastrointestinal: soft Musculoskeletal: nl extremities to inspection Extremities: normal pulses Labs Result Diagram: 05/09/18 0510 05/09/18 0510 Results 24hrs Laboratory Tests Test 05/09/18 05:10 05/09/18 05:29 White Blood Count 16.3 H Red Blood Count 1.93 L Hemoglobin 6.7 *L Hematocrit 20.7 L Mean Corpuscular Volume 107.3 H Mean Corpuscular Hemoglobin 34.7 H Mean Corpuscular Hemoglobin Concent 32.4 Red Cell Distribution Width 14.2 Platelet Count 274 Mean Platelet Volume 9.5 Immature Granulocytes % 2.700 H Neutrophils % Segmented Neutrophils % (Manual) 86 H Band Neutrophils % (Manual) 7 H Lymphocytes % Lymphocytes % (Manual) 2 L Monocytes % Monocytes % (Manual) 1 Eosinophils % Eosinophils % (Manual) 3 Basophils % Myelocytes % (Manual) 1 H Nucleated Red Blood Cells % 0.0 Immature Granulocytes # 0.440 H Neutrophils # Neutrophils # (Manual) 14.2 H Band Neutrophils # 1.1 H Lymphocytes (Manual) 0.3 L Lymphocytes # Monocytes # Monocytes # (Manual) 0.1 L Eosinophils # Basophils # Myelocytes # 0.1 H Nucleated Red Blood Cells # Platelet Estimate NORMAL Platelet Morphology Comment @See below Polychromasia 2+ Poikilocytosis 2+ Anisocytosis 2+ Macrocytosis 2+ Sodium Level 140 Potassium Level 3.2 L Chloride Level 112 H Carbon Dioxide Level 12 L Anion Gap 16 H Blood Urea Nitrogen 126 H Creatinine 2.40 H Est Glomerular Filtrat Rate mL/min Glucose Level 149 # Calcium Level 8.2 L Phosphorus Level 3.1 Magnesium Level 2.1 Lab Scanned Report REFERENCE LAB Medications Medications Current Medications IV Flush (NS 10 ml) 10 ml PRN IV ; Start 05/06/18 at 20:30 Sodium Chloride 1,000 ml @ 75 mls/hr [id number] IV Last administered on 05/09/18at 04:10; Admin Dose 100 MLS/HR; Start 05/06/18 at 23:30 Ascorbic Acid (Vitamin C) 500 mg DAILY GTB Last administered on 05/09/18at 08:3 6; Admin Dose 500 MG; Start 05/07/18 at 09:00 Aspirin (Aspirin) 81 mg DAILY GTB Last administered on 05/09/18at 08:36; Admin Dose 81 MG; Start 05/07/18 at 09:00 Albuterol/ Ipratropium (Duoneb) 3 ml Q2H RESP THERAPY PRN HHN SHORTNESS OF BREATH; Start 05/06/18 at 23:30 Albuterol/ Ipratropium (Duoneb) 3 ml Q6H RESP THERAPY HHN Last administered on 05/09/18at 09:18; Admin Dose 3 ML; Start 05/07/18 at 02:00 Lorazepam (Ativan Intensol) 0.5 mg Q6H PRN PEG ANXIETY; Start 05/06/18 at 23:30 Quetiapine Fumarate (Seroquel) 300 mg HS GTB Last administered on 05/08/18at 20:07; Admin Dose 300 MG; Start 05/07/18 at 21:00 Valproate Sodium (Depakene Liquid Cup) 100 mg QHS GTB Last administered on 05/08/18 20:07; Admin Dose 100 MG; Start 05/07/18 at 21:00 Zinc Sulfate (Zinc Sulfate) 220 mg DAILY GTB Last administered on 05/09/18 08:36; Admin Dose 220 MG; Start 05/07/18 at 09:00 Lansoprazole (Prevacid) 30 mg DAILY@06 GTB Last administered on 05/09/18 05:11; Admin Dose 30 MG; Start 05/07/18 at 06:00 Ondansetron HCl (Zofran Tab) 4 mg Q6H PRN GTB NAUSEA AND/OR VOMITING; Start 05/07/18 at 00:15 Multivitamins (Multivitamin) 30 ml DAILY GTB Last administered on 05/09/18 08:36; Admin Dose 30 ML; Start 05/07/18 at 09:00 Epoetin Zen (Epogen (Esrd)) 20,000 units Tu@1700 SC ; Start 05/12/18 at 17:00 Norepinephrine 250 ml @ 1.875 mls/ hr TITRATE IV Last administered on 05/08/18 13:33; Admin Dose 33.75 MLS/HR; Start 05/08/18 at 03:00 Colistimethate Sodium 150 mg/ Sodium Chloride 100 ml @ 200 mls/hr Q24H IVPB Last administered on 05/08/18 14:58; Admin Dose 200 MLS/HR; Start 05/08/18 at 12:30; Stop 05/15/18 at 12:29 Ceftriaxone Sodium 50 ml @ 100 mls/hr Q24H IVPB Last administered on 05/08/18 13:25; Admin Dose 100 MLS/HR; Start 05/08/18 at 13:30 Phenylephrine HCl 250 ml @ 75 mls/hr TITRATE IV Last administered on 05/09/18 08:45; Admin Dose 75 MLS/HR; Start 05/09/18 at 08:00 Citric Acid/ Sodium Citrate (Bicitra) 30 ml Q8 PO Last administered on 05/09/18 08:45; Admin Dose 30 ML; Start 05/09/18 at 08:00 NICOLAS SMYTH MD May 09, 2018 11:23
--- NOTE | 2018-05-09 11:47 | PN ---
Date/Time of Note Date/Time of Note DATE: 05/09/18 TIME: 11:45 Assessment/Plan VTE Prophylaxis [place] [facility] [place] risk: 7 [place]CD [place] [facility] [place] No SCD contraindicated: other Pharmacological prophylaxis: heparin Lines/Catheters IV Catheter Type (from [facility]): PICC Line Central line still needed: Yes Urinary Cath still in place: Yes Reason Cath still needed: skin wounds contaminated by urine Assessment/Plan Hospital Course 1. Septic shock. The patient will be admitted in ICU. The patient has received more than 3 liters of IV fluid in the ER. We will continue normal saline at 1 ____ an hour. The patient will be started on vasopressor if blood pressure remains low. The patient has received IV vancomycin and cefepime in the ER. We will continue cefepime for now. 2. Acute on chronic kidney disease. We will continue trial of IV fluids. If the patient's renal functions remained same or worsens, we then will obtain a nephrology consultation. 3. Hyponatremia. Continue normal saline. 4. Will also obtain urine and serum osmolality and urinary sodium, although it does look like due to acute on chronic kidney injury. 5. Chronic obstructive pulmonary disease. Continue breathing treatment. 6. Bipolar disorder. Continue Seroquel. I will reduce the dose due to worsening renal failure. 7. History of upper GI bleed back in December 2017, status post EGD. We will continue PPI. 8. Paroxysmal atrial fibrillation. The patient has been in sinus rhythm. No anticoagulant or antiplatelet agent due to history of recent upper GI bleed. Continue baby aspirin along with the Protonix. 9. Dysphagia. Continue tube feeding. 10. History of anterior pelvic wall abscess, status post surgery. 11. History of critical care polyneuropathy/myopathy. The patient will resume PT, OT once she is medically stable. 12. Anemia of chronic kidney disease. Will continue Procrit and will order followup labs. ID consult from Dr. Doyle's group will be obtained. We will also obtain renal consultation with Dr. Mckeon for severe hyponatremia as well as acute on chronic kidney disease. Since patient has already NS bolus, diagnostic studies for hyponatremia may not be accurate. We will wait for nephrology input. 13. Diastolic heart failure, currently compensated. Result Diagram: 05/09/18 0505/09/1810 Results 24hrs Laboratory Tests Test 3/23/19 05:10 05/09/18 05:29 White Blood Count 16.3 H Red Blood Count 1.93 L Hemoglobin 6.7 *L Hematocrit 20.7 L Mean Corpuscular Volume 107.3 H Mean Corpuscular Hemoglobin 34.7 H Mean Corpuscular Hemoglobin Concent 32.4 Red Cell Distribution Width 14.2 Platelet Count 274 Mean Platelet Volume 9.5 Immature Granulocytes % 2.700 H Neutrophils % Segmented Neutrophils % (Manual) 86 H Band Neutrophils % (Manual) 7 H Lymphocytes % Lymphocytes % (Manual) 2 L Monocytes % Monocytes % (Manual) 1 Eosinophils % Eosinophils % (Manual) 3 Basophils % Myelocytes % (Manual) 1 H Nucleated Red Blood Cells % 0.0 Immature Granulocytes # 0.440 H Neutrophils # Neutrophils # (Manual) 14.2 H Band Neutrophils # 1.1 H Lymphocytes (Manual) 0.3 L Lymphocytes # Monocytes # Monocytes # (Manual) 0.1 L Eosinophils # Basophils # Myelocytes # 0.1 H Nucleated Red Blood Cells # Platelet Estimate NORMAL Platelet Morphology Comment @See below Polychromasia 2+ Poikilocytosis 2+ Anisocytosis 2+ Macrocytosis 2+ Sodium Level 140 Potassium Level 3.2 L Chloride Level 112 H Carbon Dioxide Level 12 L Anion Gap 16 H Blood Urea Nitrogen 126 H Creatinine 2.40 H Est Glomerular Filtrat Rate mL/min Glucose Level 149 # Calcium Level 8.2 L Phosphorus Level 3.1 Magnesium Level 2.1 Lab Scanned Report REFERENCE LAB Subjective 24 Hr Interval Summary Free Text/Dictation Patient resting, eyes open to voice but not verbally responsive Exam/Review of Systems Exam Vitals Vital Signs Date Temp Pulse Resp B/P (MAP) Pulse Ox O2 O2 Flow FiO2 Time Delivery Rate 05/09/18 114 16 80/37 (51) 96 Nasal 3.0 11:00 Cannula 05/09/18 99.8 07:30 05/09/18 31 02:26 Intake and Output 05/08/18 05/08/18 05/09/18 1515:00 23:00 07:00 IntakeIntake Total 1137.50 ml 1418.125 ml 1440.000 ml OutputOutput Total 548 ml 432 ml 270 ml BalanceBalance 589.50 ml 986.125 ml 1170.000 ml Constitutional: well developed Head: normocephalic, atraumatic Neck: supple Respiratory: diminished breath sounds Cardiovascular: regular rate and rhythm Gastrointestinal: soft, non-tender Extremities: normal pulses Results Results 24hrs Laboratory Tests Test 05/09/18 05:10 05/09/18 05:29 White Blood Count 16.3 H Red Blood Count 1.93 L Hemoglobin 6.7 *L Hematocrit 20.7 L Mean Corpuscular Volume 107.3 H Mean Corpuscular Hemoglobin 34.7 H Mean Corpuscular Hemoglobin Concent 32.4 Red Cell Distribution Width 14.2 Platelet Count 274 Mean Platelet Volume 9.5 Immature Granulocytes % 2.700 H Neutrophils % Segmented Neutrophils % (Manual) 86 H Band Neutrophils % (Manual) 7 H Lymphocytes % Lymphocytes % (Manual) 2 L Monocytes % Monocytes % (Manual) 1 Eosinophils % Eosinophils % (Manual) 3 Basophils % Myelocytes % (Manual) 1 H Nucleated Red Blood Cells % 0.0 Immature Granulocytes # 0.440 H Neutrophils # Neutrophils # (Manual) 14.2 H Band Neutrophils # 1.1 H Lymphocytes (Manual) 0.3 L Lymphocytes # Monocytes # Monocytes # (Manual) 0.1 L Eosinophils # Basophils # Myelocytes # 0.1 H Nucleated Red Blood Cells # Platelet Estimate NORMAL Platelet Morphology Comment @See below Polychromasia 2+ Poikilocytosis 2+ Anisocytosis 2+ Macrocytosis 2+ Sodium Level 140 Potassium Level 3.2 L Chloride Level 112 H Carbon Dioxide Level 12 L Anion Gap 16 H Blood Urea Nitrogen 126 H Creatinine 2.40 H Est Glomerular Filtrat Rate mL/min Glucose Level 149 # Calcium Level 8.2 L Phosphorus Level 3.1 Magnesium Level 2.1 Lab Scanned Report REFERENCE LAB Medications Medication Current Medications IV Flush (NS 10 ml) 10 ml PRN IV ; Start 05/06/18 at 20:30 Sodium Chloride 1,000 ml @ 75 mls/hr [id number] IV Last administered on 05/09/18at 04:10; Admin Dose 100 MLS/HR; Start 05/06/18 at 23:30 Ascorbic Acid (Vitamin C) 500 mg DAILY GTB Last administered on 05/09/18at 08:36; Admin Dose 500 MG; Start 05/07/18 at 09:00 Aspirin (Aspirin) 81 mg DAILY GTB Last administered on 05/09/18at 08:36; Admin Dose 81 MG; Start 05/07/18 at 09:00 Albuterol/ Ipratropium (Duoneb) 3 ml Q2H RESP THERAPY PRN HHN SHORTNESS OF BREATH; Start 05/06/18 at 23:30 Albuterol/ Ipratropium (Duoneb) 3 ml Q6H RESP THERAPY HHN Last administered on 05/09/18 09:18; Admin Dose 3 ML; Start 05/07/18 at 02:00 Lorazepam (Ativan Intensol) 0.5 mg Q6H PRN PEG ANXIETY; Start 05/06/18 at 23:30 Quetiapine Fumarate (Seroquel) 300 mg HS GTB Last administered on 05/08/18 20:07; Admin Dose 300 MG; Start 05/07/18 at 21:00 Valproate Sodium (Depakene Liquid Cup) 100 mg QHS GTB Last administered on 05/08/18 20:07; Admin Dose 100 MG; Start 05/07/18 at 21:00 Zinc Sulfate (Zinc Sulfate) 220 mg DAILY GTB Last administered on 05/09/18 08:36; Admin Dose 220 MG; Start 05/07/18 at 09:00 Lansoprazole (Prevacid) 30 mg DAILY@06 GTB Last administered on 05/09/18 05:11; Admin Dose 30 MG; Start 05/07/18 at 06:00 Ondansetron HCl (Zofran Tab) 4 mg Q6H PRN GTB NAUSEA AND/OR VOMITING; Start 05/07/18 at 00:15 Multivitamins (Multivitamin) 30 ml DAILY GTB Last administered on 05/09/18 08:36; Admin Dose 30 ML; Start 05/07/18 at 09:00 Epoetin Zen (Epogen (Esrd)) 20,000 units Tu@1700 SC ; Start 05/12/18 at 17:00 Norepinephrine 250 ml @ 1.875 mls/ hr TITRATE IV Last administered on 05/08at 13:33; Admin Dose 33.75 MLS/HR; Start 05/08/18 at 03:00 Colistimethate Sodium 150 mg/ Sodium Chloride 100 ml @ 200 mls/hr Q24H IVPB Last administered on 05/08/18at 14:58; Admin Dose 200 MLS/HR; Start 05/08/18 at 12:30; Stop 05/15/18 at 12:29 Ceftriaxone Sodium 50 ml @ 100 mls/hr Q24H IVPB Last administered on 05/08/18at 13:25; Admin Dose 100 MLS/HR; Start 05/08/18 at 13:30 Phenylephrine HCl 250 ml @ 75 mls/hr TITRATE IV Last administered on 05/09/18at 11:22; Admin Dose 131.25 MLS/HR; Start 05/09/18 at 08:00 Citric Acid/ Sodium Citrate (Bicitra) 30 ml Q8 PO Last administered on 9at 08:45; Admin Dose 30 ML; Start 05/09/18 at 08:00 STEPHANIE BAL May 09, 2018 11:47
[2018-05-09] MEDS: COLISTIMETHATE 150 MG in SOD CHLORIDE 0.9% 100 ML IVPB SCH (11:57)
[2018-05-09] MEDS: PHENYLephrine 80 MG in DEXTROSE 5% 242 ML IV SCH ×2 (13:15→20:28)
[2018-05-09] MEDS: CEFTRIAXONE 1 GM/50 ML (PMX) 50 ML IVPB SCH (13:19)
--- NOTE | 2018-05-09 13:39 | PN ---
DATE: 05/08/2018 SUBJECTIVE: Follow up on septic shock due to urinary tract infection, acute on chronic kidney diseas e, COPD, bipolar disorder, hypertension, anemia, presented atrial fibrillation. The patient's blood pressure remains marginal and patient continues to require phenylephrine to maintain adequate mean ar terial pressure. The patient denies any chest pain. The patient is awake and responsive, no reporte d abdominal pain. No reported hematuria. No report of any neurological deficit. PHYSICAL EXAMINATION: GENERAL: The patient is awake, alert, follows simple commands. VITAL SIGNS: Temperature 98.8, pulse 117, blood pressure 102/40, respiration 18. HEENT: No eye discharge or redness. Conjunctivae normal. Oropharynx grossly negative. NECK: Supple. No lymph node or JVD. CHEST: Fairly clear. No use of accessory muscles. CARDIOVASCULAR: Regular rate and rhythm. S1, S2 normal, no murmur. ABDOMEN: Soft and nontender. EXTREMITIES: Dressing on the left leg intact. Right foot, unchanged, trace edema. NEUROLOGIC: The patient is awake, alert with functional quadriparesis. LABORATORY DATA: Done on 05/08/2018 revealed WBC 16.8, hemoglobin 8.1, 89.3% bandemia. Platelets 299 . Sodium 133, potassium 3.3, BUN 129, down from 147, creatinine 2.6 down from 2.9, glucose 224, magn esium 1.7. IMPRESSION 1. KPC and Streptococcus agalactiae urinary tract infection with septic shock. I spoke with Dr. Sofia mcwilliams and the patient's antibiotics have been changed to colistin and IV Rocephin. 2. Septic shock. Continue norepinephrine and IV fluid. 3. Bipolar disorder. Symptoms stable with the Seroquel, Depakote and p.r.n. Ativan. 4. COPD. Continue breathing treatment. 5. Paroxysmal atrial fibrillation. The patient is currently in sinus rhythm. The patient is being f ollowed by Dr. Scanlon from a cardiac standpoint. 6. Acute on chronic. 7. Acute kidney injury. Renal functions are slowly improving. The patient's electrolytes are being managed. The patient did receive 40 mEq of potassium for mild hypokalemia today. The patient remains critically ill and will be continued to be monitored in ICU. Dictated By: ROLAND COX/TABATHA Conf#: [id number] [facility]#: [id number]
--- NOTE | 2018-05-09 16:41 | CONS ---
[facility] HCIS Consult Follow-up Patient Name: Zuly Mcwilliams Unit Number: [id number] Date of : 1945 Patient Status: Admitted Inpatient Attending Doctor: Roland Giron MD Edit: CELESTINE SANCHEZ M.D. on 05/10/18 @ 01:43 Daniel: I discussed the management with [employer] Merle and agree with her Assessment/Plan Assessment/Plan Hospital Course (Demo Recall) sepsis, SIRS, pulmonary - Severe sepsis with septic shock d/t complicated UTI +/- anterior neck skin and soft tissue infection - UTI d/t Kleb pneumoniae CRE and Strep agalactiae (grp B) 05/06/2018 - chronic hypoxic respiratory failure - on low flow oxygen - anterior neck wound post decannulation with GNR, S.Aureus, and grp b strep agalactiae - recent decannulation - h/o tracheostomy on 06/11/2017 - s/p SIRS from UGIB; Pt's WBC level improved with hydration and without antibiotic, improved - s/p pneumonia vs. colonization of the airway by pseudomonas and ESBL+klebsiella - h/o possible, recurrent HCAP due to pseudomonas and ESBL+klebsiella - h/o recurrent HCAP due to MRSA and Enterobacter (culture of tracheal aspirate on 07/16/2017 that was collected at [facility]) . Pt took vancomycin and ceftazidime - h/o acute respiratory distress post-thoracentesis, resolved - h/o thoracentesis on 07/18/2017, transudative (protein <2, LDH 279) - h/o bleeding from the trach site which might precipitated another episode of aspiration or pneumonitis - h/o septic shock due to pneumonia, ARDS, bacteremia, fungemia - h/o pneumonia with ARDS prior to transfer to [facility] - h/o smoking - COPD - ILD Cardiac - PAF, currently sinus tachycardia GI - dysphagia, s/p PEG placement 06/13/2018 - on GTF but previously was eating - s/p coffee ground emesis/UGIB 12/23/2017 due to deep ulceration of distal esophagus and gastritis on EGD 12/26/2017. No e/o H. pylori - h/o possible appendicitis on CT on 11/22/2017, Pt's RLQ is not TTP. Pt took ertapenem (11/24/2017-12/01/2017) - h/o intermittent diarrhea, C diff negative 07/30/2017 (Pt had multiple negative C. diff tests at [facility] at OSH prior to transfer here) - h/o extensive adhesions lower abdominal and pelvis between small bowel to each other and to colon and to abdominal wall, anterior pelvic wall chronic abscess secondary to probably an old perforated diverticulitis, torsion of small bowel around these dense adhesion causing multiple obstructive points - h/o laparoscopic exploration and extensive lysis of adhesions and drainage of anterior pelvic wall abscess 09/16/2017. Cultures were negative, no e/o malignancy. Pt took pip/tazo (09/16/2017-09/26/2017) - h/o partial obstruction mid jejunum in L anterior central pelvis with suggestion of a 3 cm soft tissue mass on CT 08/28/2017 - h/o internal stomal deep ulcer behind the internal bumper, gastritis and esophagitis, Rodriguez's cannot be ruled out, per EGD with biopsy 07/23/2017 - h/o GIB s/p flex sig showed polyp; stool OB negative on 06/29/17 - h/o stool OB positive - h/o SBO and ileus due to pain meds - h/o EGD and exchange of PEG on 09/01/2017 - h/o mildly elevated CEA renal/ - recurrent NATHAN on CKD - Hyponatremia - Hyperkalemia, now hypokalemia - Metabolic acidosis - h/o vaginal bleed - h/o colonization of urinary tract by ESBL+klebsiella, VRE - h/o recurrent, symptomatic UTI due to carbapenem-resistant kleb (MDR strain) per urine culture 10/04/17, 10/09/17, 10/21/2017, P took colistin (10/09/2017- 10/15/2017), fosfomycin for carbapenemase-producing klebsiella and VRE on 10/25/2017 and 10/28/2017 - h/o funguria - urinary retention, Pt now has a Garza catheter. In the past she gets catheterized by Pt's RN q6-12hrs but is sometimes non-compliant fungemia, bacteremia - h/o bacteremia due to coag negative Staph, probable contaminant as her WBC level improved initially without antibiotic - 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 improved. Probable manifestation of endocarditis. Pt declined MRI on 08/06/2017 - h/o infection of wound of LLE - h/o debridement of wound of LLE on 08/06/2017 - h/o infection of R toes due to pseudomonas. coagulase negative Staph likely a colonizer. resolved - h/o intertrigo of the groin, resolved with nystatin powder - h/o scabies, locally crusted lesion over L scapula, s/p permethrin cream and pGT ivermectin on 08/11/2017, 08/12/2017, 08/19/2017. Repeat skin scraping on 08/21/2017 was negative for scabies psych, neuro - acute toxic metabolic encephalopathy - decreased hearing b/l - h/o critical illness polyneuropathy - anxiety/depression, bipolar d/o, seen by Psychiatry in the past - chronic pain syndrome hematological, vascular - Macrocytic anemia - chronic anemia requiring blood transfusion intermittently - 3.1 cm AAA on imaging - PVD other chronic conditions - adrenal insufficiency - protein calorie malnutrition - medical non-compliance: she would refuse her medications, treatment and straight catheterization at times Recommendations: - Continue IV Colistin (05/08/2018-). Gregorio spoke to Claudia at [facility] yesterday and requested CRE in urine to be tested against colistin, Avycaz, Zerbaxa, and Vabomere - awaiting sensis. - Continue ceftriaxone (05/08/2018-) - Ordered Zyvox (05/09/18 - ) to cover staph aureus - Ordered: Influenza A/B - F/u blood cultures (NGTD), final urine culture (prelim Kleb CRE and group B strep), and neck wound culture (S. Aureus, GNR and grp B strep) - Monitor CrCl - Wean pressors as tolerated Management d/w PROTOCOL MANAGERJAYANT Abraham and with Dr. Sanchez Critical care time spent: 50 minutes. Consultation Date/Type/Reason Admit Date/Time May 06, 2018 at 17:38 Initial Consult Date 05/07/18 Type of Consult ID Requesting Provider: ROLAND GIRON MD Date/Time of Note DATE: 05/09/18 TIME: 16:37 24 HR Interval Summary Free Text/Dictation Patient is unable to contribute to ROS d/t nonverbal. Remains on pressors. Afebrile. D/w JAYANT Abraham. Exam/Review of Systems Exam Vitals Vital Signs Date Temp Pulse Resp B/P (MAP) Pulse Ox O2 O2 Flow FiO2 Time Delivery Rate 05/09/18 113 16:25 05/09/18 14 93/42 (59) 97 Nasal 3.0 16:00 Cannula 05/09/18 99.0 12:00 05/09/18 31 02:26 Intake and Output 05/08/18 05/08/18 05/09/18 1414:59 22:59 06:59 IntakeIntake Total 1123.75 ml 1442.50 ml 1423.125 ml OutputOutput Total 555 ml 425 ml 320 ml BalanceBalance 568.75 ml 1017.50 ml 1103.125 ml Allergies Coded Allergies shellfish derived (Unverified Allergy, Unknown, 05/06/18) Constitutional: well developed, frail, obese Psych: other (BRITTANY) Head: normocephalic, atraumatic ENMT: nl external ears & nose, nl nasal mucosa & septum, other (OP dry, mouth breathing, no thrush noted.) Neck: supple, non-tender, other (anterior neck dressing is c/d/i, s/p recent decannulation. Reviewed photo in chart. ) Respiratory: diminished breath sounds, other (breath sounds mildly coarse bilaterally ) Cardiovascular: regular rate and rhythm, nl pulses, other (tachycardic) Gastrointestinal: soft, non-tender, bowel sounds (normoactive), surgical scars, other (PEG site is c/d/i, connected to TF) Genitourinary - Female: other (+ F/c) Musculoskeletal: muscle weakness Extremities: other (RUE PICC, site is c/d/i, bilateral foot drop noted ) Neurological: other (lethargic, sleeping, withdraws to tactile stimuli. ) Skin: nl turgor, other (LLE wrapped with a c/d/i kerlix dressing. heels with foam dressings. Stage II sacral decub with MASD, reviewed nsg notes/photos. ) Results Result Diagram: 05/09/18 0510 05/09/18 0510 Results 24hrs Laboratory Tests Test 05/09/18 05:10 05/09/18 05:29 White Blood Count 16.3 H Red Blood Count 1.93 L Hemoglobin 6.7 *L Hematocrit 20.7 L Mean Corpuscular Volume 107.3 H Mean Corpuscular Hemoglobin 34.7 H Mean Corpuscular Hemoglobin Concent 32.4 Red Cell Distribution Width 14.2 Platelet Count 274 Mean Platelet Volume 9.5 Immature Granulocytes % 2.700 H Neutrophils % Segmented Neutrophils % (Manual) 86 H Band Neutrophils % (Manual) 7 H Lymphocytes % Lymphocytes % (Manual) 2 L Monocytes % Monocytes % (Manual) 1 Eosinophils % Eosinophils % (Manual) 3 Basophils % Myelocytes % (Manual) 1 H Nucleated Red Blood Cells % 0.0 Immature Granulocytes # 0.440 H Neutrophils # Neutrophils # (Manual) 14.2 H Band Neutrophils # 1.1 H Lymphocytes (Manual) 0.3 L Lymphocytes # Monocytes # Monocytes # (Manual) 0.1 L Eosinophils # Basophils # Myelocytes # 0.1 H Nucleated Red Blood Cells # Platelet Estimate NORMAL Platelet Morphology Comment @See below Polychromasia 2+ Poikilocytosis 2+ Anisocytosis 2+ Macrocytosis 2+ Sodium Level 140 Potassium Level 3.2 L Chloride Level 112 H Carbon Dioxide Level 12 L Anion Gap 16 H Blood Urea Nitrogen 126 H Creatinine 2.40 H Est Glomerular Filtrat Rate mL/min Glucose Level 149 # Calcium Level 8.2 L Phosphorus Level 3.1 Magnesium Level 2.1 Lab Scanned Report REFERENCE LAB Medications Medication Current Medications IV Flush (NS 10 ml) 10 ml PRN IV ; Start 05/06/18 at 20:30 Sodium Chloride 1,000 ml @ 75 mls/hr [id number] IV Last administered on 05/09/18 15:16; Admin Dose 75 MLS/HR; Start 05/06/18 at 23:30 Ascorbic Acid (Vitamin C) 500 mg DAILY GTB Last administered on 05/09/18 08:36; Admin Dose 500 MG; Start 05/07/18 at 09:00 Aspirin (Aspirin) 81 mg DAILY GTB Last administered on 05/09/18 08:36; Admin Dose 81 MG; Start 05/07/18 at 09:00 Albuterol/ Ipratropium (Duoneb) 3 ml Q2H RESP THERAPY PRN HHN SHORTNESS OF BREATH; Start 05/06/18 at 23:30 Albuterol/ Ipratropium (Duoneb) 3 ml Q6H RESP THERAPY HHN Last administered on 05/09/18 14:43; Admin Dose 3 ML; Start 05/07/18 at 02:00 Lorazepam (Ativan Intensol) 0.5 mg Q6H PRN PEG ANXIETY; Start 05/06/18 at 23:30 Quetiapine Fumarate (Seroquel) 300 mg HS GTB Last administered on 05/08/18 20:07; Admin Dose 300 MG; Start 05/07/18 at 21:00 Valproate Sodium (Depakene Liquid Cup) 100 mg QHS GTB Last administered on 05/08/18 20:07; Admin Dose 100 MG; Start 05/07/18 at 21:00 Zinc Sulfate (Zinc Sulfate) 220 mg DAILY GTB Last administered on 05/09/18 08:36; Admin Dose 220 MG; Start 05/07/18 at 09:00 Lansoprazole (Prevacid) 30 mg DAILY@06 GTB Last administered on 05/09/18 05:11; Admin Dose 30 MG; Start 05/07/18 at 06:00 Ondansetron HCl (Zofran Tab) 4 mg Q6H PRN GTB NAUSEA AND/OR VOMITING; Start 05/07/18 at 00:15 Multivitamins (Multivitamin) 30 ml DAILY GTB Last administered on 05/09/18at 08:36; Admin Dose 30 ML; Start 05/07/18 at 09:00 Epoetin Zen (Epogen (Esrd)) 20,000 units Tu@1700 SC ; Start 05/12/18 at 17:00 Norepinephrine 250 ml @ 1.875 mls/ hr TITRATE IV Last administered on 05/08/18at 13:33; Admin Dose 33.75 MLS/HR; Start 05/08/18 at 03:00 Colistimethate Sodium 150 mg/ Sodium Chloride 100 ml @ 200 mls/hr Q24H IVPB Last administered on 05/09/18at 11:57; Admin Dose 200 MLS/HR; Start 05/08/18 at 12:30; Stop 05/15/18 at 12:29 Ceftriaxone Sodium 50 ml @ 100 mls/hr Q24H IVPB Last administered on 05/09/18at 13:19; Admin Dose 100 MLS/HR; Start 05/08/18 at 13:30 Citric Acid/ Sodium Citrate (Bicitra) 30 ml Q8 PO Last administered on 05/09/18at 13:19; Admin Dose 30 ML; Start 05/09/18 at 08:00 Phenylephrine HCl 80 mg/Dextrose 250 ml @ 18.75 mls/ hr TITRATE IV Last ad ministered on 05/09/18at 13:15; Admin Dose 37.5 MLS/HR; Start 05/09/18 at 12:30 KENA MÉNDEZ NP May 09, 2018 16:41
[2018-05-09] MEDS ORDERED: PENDING SANTYL ORDER FOR WOUND CARE XX PRN (17:00)
[2018-05-09] MEDS: VALPROIC ACID LIQUID CUP 250 MG/5 ML CUP GTB SCH (20:20)
[2018-05-09] MEDS: QUETIAPINE 100 MG TAB GTB SCH (20:20)
[2018-05-09] MEDS: LINEZOLID 600 MG/300 ML (PMX) 300 ML IVPB SCH (20:24)
[2018-05-09] MEDS ORDERED: FUROSEMIDE 40 MG INJ IV ONE (23:00)
[2018-05-09] MEDS ORDERED: NA BICARBONATE 8.4% 50 ML SYG IV ONE (23:00)
[2018-05-10] VITALS (99 sets, daily range): BP systolic 92–149; BP diastolic 33–102; PULSE 103–118; RESP 13–33
[2018-05-10] MEDS: ALBUTEROL/IPRATROPIUM (NEB) 3 ML AMP HHN SCH ×4 (01:51→19:57)
[2018-05-10] MEDS: SOD CHLORIDE 0.9% 1,000 ML IV SCH (05:32)
[2018-05-10] MEDS: LANSOPRAZOLE 30 MG CAP GTB SCH (05:32)
[2018-05-10] MEDS: CITRIC ACID/NA CITRATE 30 ML CUP PO SCH ×3 (05:32→22:00)
[2018-05-10] MEDS: PHENYLephrine 80 MG in DEXTROSE 5% 242 ML IV SCH ×2 (05:43→13:30)
[2018-05-10] MEDS ORDERED: SODIUM BICARBONATE (IV ADD) 75 MEQ in SOD CHLORIDE 0.45% 1,000 ML IV SCH ×4 (08:30)
--- NOTE | 2018-05-10 08:40 | PN ---
DATE: 05/10/2018 SUBJECTIVE: The patient is critically ill, on pressor support. Urinary output has been marginal. N o other events noted. OBJECTIVE: VITAL SIGNS: Blood pressure is 92/39, respirations 17, pulse 104, temperature 98.6. HEENT: Head is normocephalic. NECK: Supple. HEART: Regular rate. LUNGS: Show diminished breath sounds at the base. ABDOMEN: Soft, nontender to palpation without rebound or guarding. EXTREMITIES: Negative for clubbing, cyanosis. Positive edema. DERMATOLOGIC: No rashes. MUSCULOSKELETAL: No joint effusion. NEUROLOGIC: No change in exam. MEDICATIONS: The patient's medications have been reviewed. LABORATORY DATA: Shows sodium 140, potassium 3.6, bicarbonate 10, BUN 124, creatinine 2.29. White c ount 18.1, hemoglobin 6.3, platelet count is 287. Patient's cultures have been reviewed. Renal ultr asound from 05/07/2018 was reviewed. Patient's ABG was reviewed. ASSESSMENT AND PLAN: 1. Nonoliguric acute kidney injury on top of chronic kidney disease with previous baseline creatinin e around 2 to 2.5 mg/dL. Etiology of NATHAN is secondary to sepsis, acute tubular necrosis. The patien t's renal function has been improving with IV fluids, supportive care and antibiotic therapy. The wiley still, however, does have significant azotemia, which is multifactorial due to acute kidney injury, c hronic kidney disease, hypercatabolic state. At this point, will continue to monitor closely. Esvin nue treatment plans, supportive care, renally dose all meds, no immediate need for renal replacement therapy. 2. Metabolic acidosis with respiratory compensation. The patient's repeat ABG was reviewed. The wiley still on Bicitra. Will consider starting bicarbonate drip. 3. Anemia. Monitor hemoglobin and hematocrit levels. 4. Mineral bone disorder, monitor calcium and phosphorus levels. 5. Septic shock secondary to urinary tract infection. Continue antibiotic regimen. Continue presso r support, IV fluid, antibiotic therapy. 6. Tachyarrhythmia. Continue to monitor. 7. Chronic respiratory failure. The patient is stable on nasal cannula. 8. Dysphagia. Continue tube feeding. 9. Acute encephalopathy. Etiology is toxic metabolic. 10. History of heart failure. Monitor volume status closely on IV fluids. Please note, I spent over 30 minutes of critical care time with this patient. Dictated By: JEANA FINE/TABATHA Conf#: [id number] DID#: [id number] CC: QUINTEN UMAÑA MD; ROLAND GIRON MD;*EndCC*
[2018-05-10] MEDS: ASPIRIN 81 MG TAB GTB SCH (09:00)
[2018-05-10] MEDS: MULTIVITAMINS 30 ML CUP GTB SCH (09:00)
[2018-05-10] MEDS: ASCORBIC ACID 500 MG TAB GTB SCH (09:00)
[2018-05-10] MEDS: ZINC SULFATE 220 MG CAP GTB SCH (09:00)
[2018-05-10] MEDS: LINEZOLID 600 MG/300 ML (PMX) 300 ML IVPB SCH ×2 (09:42→20:08)
[2018-05-10] MEDS: SODIUM BICARBONATE (IV ADD) 75 MEQ in SOD CHLORIDE 0.45% 1,000 ML IV SCH (09:42)
--- NOTE | 2018-05-10 11:44 | PN ---
Date/Time of Note Date/Time of Note DATE: 05/10/18 TIME: 11:43 Assessment/Plan VTE Prophylaxis Risk score (from [facility] [place])>0 risk: 13 SCD applied (from [facility] [place]): No SCD contraindicated: other Pharmacological prophylaxis: LMWH Lines/Catheters IV Catheter Type (from [facility]): PICC Line Central line still needed: Yes Urinary Cath still in place: Yes Reason Cath still needed: skin wounds contaminated by urine Assessment/Plan Hospital Course 1. Septic shock. The patient will be admitted in ICU. The patient has received more than 3 liters of IV fluid in the ER. We will continue normal saline at 1 ____ an hour. The patient will be started on vasopressor if blood pressure remains low. The patient has received IV vancomycin and cefepime in the ER. We will continue cefepime for now. 2. Acute on chronic kidney disease. We will continue trial of IV fluids. If the patient's renal functions remained same or worsens, we then will obtain a nephrology consultation. 3. Hyponatremia. Continue normal saline. 4. Will also obtain urine and serum osmolality and urinary sodium, although it does look like due to acute on chronic kidney injury. 5. Chronic obstructive pulmonary disease. Continue breathing treatment. 6. Bipolar disorder. Continue Seroquel. I will reduce the dose due to worsening renal failure. 7. History of upper GI bleed back in December 2017, status post EGD. We will continue PPI. 8. Paroxysmal atrial fibrillation. The patient has been in sinus rhythm. No anticoagulant or antiplatelet agent due to history of recent upper GI bleed. Continue baby aspirin along with the Protonix. 9. Dysphagia. Continue tube feeding. 10. History of anterior pelvic wall abscess, status post surgery. 11. History of critical care polyneuropathy/myopathy. The patient will resume PT, OT once she is medically stable. 12. Anemia of chronic kidney disease. Will continue Procrit and will order followup labs. ID consult from Dr. Doyle's group will be obtained. We will also obtain renal consultation with Dr. Mckeon for severe hyponatremia as well as acute on chronic kidney disease. Since patient has already NS bolus, diagnostic studies for hyponatremia may not be accurate. We will wait for nephrology input. 13. Diastolic heart failure, currently compensated. Result Diagram: 05/10/1830905/10/18 0310 Results 24hrs Laboratory Tests Test 05/09/18 22:23 05/10/18 01:00 05/10/18 03:10 05/10/18 08:22 Blood Gas Blood arterial Blood arterial Specimen Source Arterial Blood 05/09/2018 10:20 05/10/2018 1:30: Date Drawn :13 PM 55 AM Arterial Blood 7.233 *L 7.258 *L pH (Temp corrected) Arterial Blood 27.2 L 29.7 L pCO2 (Temp correct) Arterial Blood 84.1 81.0 pO2 (Temp corrected) Arterial Blood 11.2 L 13.0 L HCO3 Arterial Blood -14.9 L -12.9 L Base Excess Arterial Blood 95.1 94.8 L Oxygen Saturatio n Steven Test ACCEPTAB ACCEPTAB Arterial Blood Right Radial Right Radial Gas Puncture Site Arterial 1.6 1.2 Blood Carboxyhem oglobin Arterial Blood 0.4 0.5 Methemoglobin Blood Gas A-a O2 97.8 H 98.0 H Differential Oxyhemoglobin 93.2 93.2 Percent Blood Gas 37.0 37.0 Temperature Blood Gas NASAL CANNULA NASAL CANNULA Modality FiO2 30.0 30.0 Blood Gas COH RN COH RN Critical Value Read Back Blood Gas LOIDA MARISCAL Notified Whom Blood Gas 05/09/2018 10:35 05/10/2018 1:47: Notified Time :59 PM 35 AM White Blood 18.1 H Count Red Blood Count 1.85 L Hemoglobin 6.3 *L Hematocrit 19.7 L Mean Corpuscular 106.5 H Volume Mean Corpuscular 34.1 H Hemoglobin Mean Corpuscular 32.0 Hemoglobin Rachael nt Red Cell 14.7 H Distribution Width Platelet Count 287 Mean Platelet 9.4 Volume Immature 2.100 H Granulocytes % Neutrophils % Segmented 78 H Neutrophils % (Manual) Band Neutrophils 13 H % (Manual) Lymphocytes % Lymphocytes % 2 L (Manual) Monocytes % Monocytes % 3 (Manual) Eosinophils % Eosinophils % 3 (Manual) Basophils % Myelocytes % 1 H (Manual) Nucleated Red 0.0 Blood Cells % Immature 0.390 H Granulocytes # Neutrophils # Neutrophils # 14.5 H (Manual) Band Neutrophils 2.3 H # Lymphocytes 0.3 L (Manual) Lymphocytes # Monocytes # Monocytes # 0.5 (Manual) Eosinophils # Basophils # Myelocytes # 0.1 H Nucleated Red Blood Cells # Platelet NORMAL Estimate Anisocytosis 1+ Microcytosis 1+ Macrocytosis 1+ Sodium Level 140 Potassium Level 3.6 Chloride Level 115 H Carbon Dioxide 10 L Level Anion Gap 15 H Blood Urea 124 H Nitrogen Creatinine 2.29 H Est Glomerular Filtrat Rate mL/min Glucose Level 137 Calcium Level 8.1 L Phosphorus Level 3.1 Magnesium Level 1.8 Urine Color RED Urine Clarity CLOUDY A Urine pH 5.0 Urine Specific 1.011 [place] Urine Ketones NEGATIVE Urine Nitrite NEGATIVE Urine Bilirubin NEGATIVE Urine NEGATIVE Urobilinogen Urine Leukocyte 2+ H Esterase Urine > 182 H Microscopic RBC Urine > 182 H Microscopic WBC Urine Hyaline FEW A Casts Urine Hemoglobin 3+ H Urine Glucose NEGATIVE Urine Total 2+ H Protein Subjective 24 Hr Interval Summary Free Text/Dictation Patient sedated, no responsive to voice Exam/Review of Systems Exam Vitals Vital Signs Date Temp Pulse Resp B/P (MAP) Pulse Ox O2 O2 Flow FiO2 Time Delivery Rate 05/10/18 102 30 96 Nasal 3.0 11:08 Cannula 05/10/18 106/41 09:45 (62) 05/10/18 98.9 08:00 05/09/18 31 02:26 Intake and Output 05/09/18 05/09/18 05/10/18 1515:00 23:00 07:00 IntakeIntake Total 1488.00 ml 1181.25 ml 810 ml OutputOutput Total 150 ml 340 ml 450 ml BalanceBalance 1338.00 ml 841.25 ml 360 ml Constitutional: well developed Head: normocephalic, atraumatic Neck: supple Respiratory: diminished breath sounds Cardiovascular: regular rate and rhythm Gastrointestinal: soft, non-tender Extremities: normal pulses Results Results 24hrs Laboratory Tests Test 05/09/18 22:23 05/10/18 01:00 05/10/18 03:10 05/10/18 08:22 Blood Gas Blood arterial Blood arterial Specimen Source Arterial Blood 05/09/2018 10:20 05/10/2018 1:30: Date Drawn :13 PM 55 AM Arterial Blood 7.233 *L 7.258 *L pH (Temp corrected) Arterial Blood 27.2 L 29.7 L pCO2 (Temp correct) Arterial Blood 84.1 81.0 pO2 (Temp corrected) Arterial Blood 11.2 L 13.0 L HCO3 Arterial Blood -14.9 L -12.9 L Base Excess Arterial Blood 95.1 94.8 L Oxygen Saturatio n Steven Test ACCEPTAB ACCEPTAB Arterial Blood Right Radial Right Radial Gas Puncture Site Arterial 1.6 1.2 Blood Carboxyhem oglobin Arterial Blood 0.4 0.5 Methemoglobin Blood Gas A-a O2 97.8 H 98.0 H Differential Oxyhemoglobin 93.2 93.2 Percent Blood Gas 37.0 37.0 Temperature Blood Gas NASAL CANNULA NASAL CANNULA Modality FiO2 30.0 30.0 Blood Gas COH RN COH RN Critical Value Read Back Blood Gas LOIDA MARISCAL Notified Whom Blood Gas 05/09/2018 10:35 05/10/2018 1:47: Notified Time :59 PM 35 AM White Blood 18.1 H Count Red Blood Count 1.85 L Hemoglobin 6.3 *L Hematocrit 19.7 L Mean Corpuscular 106.5 H Volume Mean Corpuscular 34.1 H Hemoglobin Mean Corpuscular 32.0 Hemoglobin Rachael nt Red Cell 14.7 H Distribution Width Platelet Count 287 Mean Platelet 9.4 Volume Immature 2.100 H Granulocytes % Neutrophils % Segmented 78 H Neutrophils % (Manual) Band Neutrophils 13 H % (Manual) Lymphocytes % Lymphocytes % 2 L (Manual) Monocytes % Monocytes % 3 (Manual) Eosinophils % Eosinophils % 3 (Manual) Basophils % Myelocytes % 1 H (Manual) Nucleated Red 0.0 Blood Cells % Immature 0.390 H Granulocytes # Neutrophils # Neutrophils # 14.5 H (Manual) Band Neutrophils 2.3 H # Lymphocytes 0.3 L (Manual) Lymphocytes # Monocytes # Monocytes # 0.5 (Manual) Eosinophils # Basophils # Myelocytes # 0.1 H Nucleated Red Blood Cells # Platelet NORMAL Estimate Anisocytosis 1+ Microcytosis 1+ Macrocytosis 1+ Sodium Level 140 Potassium Level 3.6 Chloride Level 115 H Carbon Dioxide 10 L Level Anion Gap 15 H Blood Urea 124 H Nitrogen Creatinine 2.29 H Est Glomerular Filtrat Rate mL/min Glucose Level 137 Calcium Level 8.1 L Phosphorus Level 3.1 Magnesium Level 1.8 Urine Color RED Urine Clarity CLOUDY A Urine pH 5.0 Urine Specific 1.011 [place] Urine Ketones NEGATIVE Urine Nitrite NEGATIVE Urine Bilirubin NEGATIVE Urine NEGATIVE Urobilinogen Urine Leukocyte 2+ H Esterase Urine > 182 H Microscopic RBC Urine > 182 H Microscopic WBC Urine Hyaline FEW A Casts Urine Hemoglobin 3+ H Urine Glucose NEGATIVE Urine Total 2+ H Protein Medications Medication Current Medications IV Flush (NS 10 ml) 10 ml PRN IV ; Start 05/06/18 at 20:30 Ascorbic Acid (Vitamin C) 500 mg DAILY GTB Last administered on 05/09/18 08:36; Admin Dose 500 MG; Start 05/07/18 at 09:00 Aspirin (Aspirin) 81 mg DAILY GTB Last administered on 05/09/18 08:36; Admin Dose 81 MG; Start 05/07/18 at 09:00 Albuterol/ Ipratropium (Duoneb) 3 ml Q2H RESP THERAPY PRN HHN SHORTNESS OF BREATH; Start 05/06/18 at 23:30 Albuterol/ Ipratropium (Duoneb) 3 ml Q6H RESP THERAPY HHN Last administered on 05/10/18 11:08; Admin Dose 3 ML; Start 05/07/18 at 02:00 Lorazepam (Ativan Intensol) 0.5 mg Q6H PRN PEG ANXIETY; Start 05/06/18 at 23:30 Quetiapine Fumarate (Seroquel) 300 mg HS GTB Last administered on 05/08/18at 20:07; Admin Dose 300 MG; Start 05/07/18 at 21:00 Valproate Sodium (Depakene Liquid Cup) 100 mg QHS GTB Last administered on 05/08/18 20:07; Admin Dose 100 MG; Start 05/07/18 at 21:00 Zinc Sulfate (Zinc Sulfate) 220 mg DAILY GTB Last administered on 05/09/18 08:36; Admin Dose 220 MG; Start 05/07/18 at 09:00 Lansoprazole (Prevacid) 30 mg DAILY@06 GTB Last administered on 05/09/18at 05:11; Admin Dose 30 MG; Start 05/07/18 at 06:00 Ondansetron HCl (Zofran Tab) 4 mg Q6H PRN GTB NAUSEA AND/OR VOMITING; Start 05/07/18 at 00:15 Multivitamins (Multivitamin) 30 ml DAILY GTB Last administered on 05/09/18 08:36; Admin Dose 30 ML; Start 05/07/18 at 09:00 Epoetin Zen (Epogen (Esrd)) 20,000 units Tu@1700 SC ; Start 05/12/18 at 17:00 Norepinephrine 250 ml @ 1.875 mls/ hr TITRATE IV Last administered on 05/08/18 13:33; Admin Dose 33.75 MLS/HR; Start 05/08/18 at 03:00 Colistimethate Sodium 150 mg/ Sodium Chloride 100 ml @ 200 mls/hr Q24H IVPB Last administered on 05/09/18 11:57; Admin Dose 200 MLS/HR; Start 05/08/18 at 12:30; Stop 05/15/18 at 12:29 Ceftriaxone Sodium 50 ml @ 100 mls/hr Q24H IVPB Last administered on 05/09/18 13:19; Admin Dose 100 MLS/HR; Start 05/08/18 at 13:30 Citric Acid/ Sodium Citrate (Bicitra) 30 ml Q8 PO Last administered on 05/09/18 13:19; Admin Dose 30 ML; Start 05/09/18 at 08:00 Phenylephrine HCl 80 mg/Dextrose 250 ml @ 18.75 mls/ hr TITRATE IV Last administered on 05/10/18 05:43; Admin Dose 30 MLS/HR; Start 05/09/18 at 12:30 Miscellaneous Information (Pending [facility] Order For Wound Care) This patient goldman... PRN PRN XX WOUND CARE; Start 05/09/18 at 17:00 Linezolid 300 ml @ 300 mls/hr Q12 IVPB Last administered on 05/10/18 09:42; Admin Dose 300 MLS/HR; Start 05/09/18 at 21:00; Stop 05/12/18 at 21:00 Sodium Bicarbonate 75 meq/Sodium Chloride 1,075 ml @ 75 mls/hr [id number] IV Last administered on 05/10/18 09:42; Admin Dose 75 MLS/HR; Start 05/10/18 at 10:00 STEPHANIE BAL May 10, 2018 11:44
[2018-05-10] MEDS: COLISTIMETHATE 150 MG in SOD CHLORIDE 0.9% 100 ML IVPB SCH (12:05)
[2018-05-10] MEDS: CEFTRIAXONE 1 GM/50 ML (PMX) 50 ML IVPB SCH (13:43)
--- NOTE | 2018-05-10 14:01 | CONS ---
Assessment/Plan Assessment/Plan Assessment/Plan (Daily) IMP: 1. Septic Shock--2/2 urosepsis 2. Acute Renal Failure--likely non-oliguric ATN 3. Metabolic Acidosis--mostly 2/2 ARF 4. Encephalopathy--toxic-metabolic 2/2 infection and ARF, in addition to basel ine 5. Anemia--r/o acute GIB 6. H/O abdominal abscess RECS: 1. IVF's with NaHCO3 2. Respiratory status is tenuous though at this time she is protecting her airway and is compensating for the metabolic acidosis 3. Abx as per ID 4. Follow mental status and gases, low threshold for intubation 5. Follow h/H 6. Transfuse 2 units PRBC 7. Follow lactate 8. Aspiration precautions/deep suctioning 9. Am labs/CXR/ABG Consultation Date/Type/Reason Admit Date/Time May 06, 2018 at 17:38 Date of Consultation: May 10, 2018 Type of Consult Pulm/CCM Date/Time of Note DATE: 05/10/18 TIME: 13:51 Hx of Present Illness Briefly, this is a 73-year-old woman with a history of COPD, respiratory failure s/p trach followed by decannulation, baselines encephalopathy, prior history of HCAP, bowel obstruction and surgery, resident of a SNF, who was admitted 4 days ago with septic shock due to urosepsis with associated ARF and worsening encephalopathy. Subjective hx not possible: pt non-verbal Past Medical History as per HPI Home Meds Reported Medications Zinc Sulfate* (Zinc Sulfate*) 220 Mg Tablet, 220 MG GTB DAILY, TAB START DATE 05/04/18, END DATE 06/03/18 05/06/18 Diclofenac Sodium* (Voltaren* Gel) 1% -100 Gm Gel, 2 GM TOP TID, #1 TUB 05/06/18 Ascorbic Acid (Vitamin C) 500 Mg Tab, 500 MG GTB DAILY, TAB 05/06/18 Quetiapine Fumarate* (Seroquel*) 100 Mg Tablet, 600 MG GTB HS, #30 TAB 05/06/18 Protein Supplement (Promod) 946 Ml Liquid, 30 ML GTB BID 05/06/18 Epoetin Zen (Procrit) 20,000 Unit/1 Ml Vial, 73791 UNIT IJ Q TUE for FOR ANEMIA OF CKD, VIAL HOLD IFHGB IS EQUAL OR GREATER THAN 11 3/20/19 Ondansetron Hcl* (Ondansetron Hcl* Liq) 4 Mg/5 Ml Solution, 4 MG GTB Q6H PRN for NAUSEA AND/OR VOMITING, ML 05/06/18 Multivitamin with Minerals (Multivitamins with Minerals) 1 Each Tablet, 1 EACH GTB QAM, TAB 05/06/18 Metoprolol Tartrate* (Lopressor*) 25 Mg Tab, 25 MG GTB BID, #60 TAB HOLD FOR SBP<110 OR HR<60 05/06/18 Lorazepam* (Ativan* Intensol) 2 Mg/Ml Soln, 0.5 MG IV* Q6H PRN for ANXIETY, #1 BOTTLE START DATE 04/02/18, END DATE 06/01/18 05/06/18 Lidocaine (Lidocaine) 1 Each Adh..patch, 1 EACH TP Q12H 5% 05/06/18 Ipratropium-Albuterol (Ipratropium-Albuterol) 0.5-3 Mg/3 Ml Ampul.neb, 3 ML INHALATION Q6 PRN for BRONCHOSPASM, #30 VIAL 05/06/18 Ipratropium-Albuterol (Ipratropium-Albuterol) 0.5-3 Mg/3 Ml Ampul.neb, 3 ML INHALATION Q2H PRN for BRONCHOSPASM, #30 VIAL 05/06/18 Famotidine* (Famotidine*) 20 Mg Tablet, 20 MG GTB BID, #60 TAB 05/06/18 Valproic Acid* (Depakene*) 250 Mg/5 Ml Udc Syrup, 100 MG GTB QHS, ML 05/06/18 Clonidine Hcl* (Clonidine Hcl*) 0.1 Mg Tab, 0.1 MG GTB Q6 PRN for NEEDED, TAB FOR SBP>160 OR DBP>90 05/06/18 Aspirin* (Aspirin* Chew) 81 Mg Tab.chew, 81 MG GTB DAILY, TAB.CHEW 05/06/18 Discontinued Reported Medications Docusate Sodium* (Colace* Liq) 50 Mg/5 Ml Liquid, 100 MG GTB BID, EA 12/29/17 Na Phos,M-B/Na Phos,Di-Ba (Fleet Enema Extra) 230 Ml Enema, 230 ML RC PRN for CONSTIPATION, ENEMA 12/29/17 Bisacodyl* (Dulcolax*) 5 Mg Tablet.dr, 10 MG GTB DAILY PRN for CONSTIPATION, TAB 12/29/17 Docusate Sodium* (Colace* Liq) 50 Mg/5 Ml Liquid, 100 MG GTB BID, EA 12/29/17 Ferrous Sulfate* (Ferrous Sulfate*) 325 Mg Tabec, 330 MG GTB DAILY, TAB 12/29/17 Zinc Sulfate* (Zinc Sulfate*) 220 Mg Tablet, 220 MG GTB DAILY, TAB 12/29/17 Ascorbic Acid (Vitamin C) 500 Mg Tab, 500 MG GTB DAILY, TAB 12/29/17 Multivitamin with Minerals (Daily Vitamin Formula-Minerals) 1 Each Tablet, 1 EACH PO DAILY, TAB 12/29/17 Megestrol Acetate* (Megace ES*) 625 Mg/5 Ml Oral.susp, 400 MG PO DAILY, ML 12/29/17 Atorvastatin (Atorvastatin) 10 Mg Tablet, 20 MG PO QHS, #30 TAB 12/29/17 Amlodipine Besylate* (Amlodipine Besylate*) 2.5 Mg Tablet, 2.5 MG PO BID, #30 TAB HOLD FOR SBP < 110 OR HR < 60 12/29/17 Ondansetron Hcl* (Ondansetron Hcl* Liq) 4 Mg/5 Ml Solution, 4 MG IV* Q6H PRN for NAUSEA AND/OR VOMITING, ML 08/26/17 Morphine Sulfate* (Morphine* Liq) 10 Mg/5 Ml Solution, 6 MG GTB Q4H PRN for PAIN, ML 08/26/17 Morphine Sulfate* (Morphine* Liq) 10 Mg/5 Ml Solution, 3 MG PO Q4H PRN for PAIN, ML 08/26/17 Metoprolol Tartrate* (Lopressor*) 25 Mg Tablet, 25 MG PO BID, #60 TAB 08/26/17 Methylprednisolone Sod Succ (Solu-Medrol) 10 Mg/Ml Soln, 20 MG IV* DAILY 08/26/17 Lorazepam* (Ativan* Intensol) 2 Mg/Ml Soln, 0.5 MG IV* Q4H PRN for ANXIETY, #1 BOTTLE 08/26/17 Lansoprazole* (Lansoprazole*) 30 Mg Capsule.dr, 30 MG GTB BID, CAP 08/26/17 Hydrocodone/Acetaminophen ([place] 5-325 Tablet) 1 Each Tablet, 1 EACH GTB Q4 PRN for PAIN, TAB 08/26/17 Furosemide* (Lasix* Liq) 40 Mg/4 Ml Solution, 40 MG IV* DAILY, #120 ML 08/26/17 Chlorhexidine Gluconate (Chlorhexidine Gluconate) 1 Each [place], 1 EACH TP PRN PRN for CENTRAL LINE, TOWELETTE 08/26/17 Bethanechol Chloride* (Bethanechol Chloride*) 25 Mg Tablet, 25 MG GTB TID, TAB 08/26/17 Acetylcysteine* (Mucomyst*) 4 Ml Soln, 2 ML NEB BID, EA 08/26/17 Valproic Acid* (Valproic Acid* Liq) 250 Mg/5 Ml Syrup, 1000 MG GTB QHS, ML 07/18/17 Simethicone (INFANT GAS RELIEF) 40 Mg/0.6 Ml Drops.susp, 40 MG GTB Q4H 07/18/17 Quetiapine Fumarate* (Quetiapine Fumarate*) 100 Mg Tablet, 600 MG GTB HS, TAB 07/18/17 Nystatin (Nystatin Powder) 1 Each Powder.ea., 1 APPLIC TOPICAL DAILY, #1 BOTTLE 07/18/17 Nitroglycerin* (Nitroglycerin* SL) 0.4 Mg Tab.subl, 0.4 MG SL Q5MIN PRN for CHEST PAIN, BOTTLE 07/18/17 Hydralazine Hcl* (Apresoline* Pediatric IV Syringe) 1 Mg/Ml Soln, 5 MG IV Q4H PRN for NEEDED, EA 07/18/17 Ferrous Sulfate* (Ferrous Sulfate*) 220 Mg/5 Ml Solution, 300 MG GTB BID, ML 07/18/17 Escitalopram Oxalate* (Escitalopram Oxalate*) 10 Mg Tablet, 10 MG GTB DAILY, #30 TAB 07/18/17 Collagenase* (Santyl*) 30 Gm Oint..gm., 1 APPLIC TOP .SOILED PRN for SOILED, #1 TUB 07/18/17 Clonazepam* (Clonazepam*) 0.5 Mg Tablet, 0.25 MG GTB BID, TAB 07/18/17 Budesonide* (Budesonide*) 0.5 Mg/2 Ml Ampul.neb, 0.5 MG INHALATION Q12H, AMP 6/1/18 Betamethasone-Clotrimazole* (Lotrisone*) 15 Gm Cr, 1 APPLIC TOP BID, TUB 07/18/17 Amiodarone Hcl* (Amiodarone Hcl*) 200 Mg Tablet, 100 MG GTB DAILY, #30 TAB HOLD IF SBP <110 OR HR < 60 07/18/17 Albuterol Sulfate* (Albuterol Sulfate* Neb) 0.083%-3 Ml Neb, 2.5 MG NEB NEEDED PRN for WHEEZING AND SOB, #30 VIAL 07/18/17 Albuterol Sulfate* (Albuterol Sulfate* Neb) 0.083%-3 Ml Neb, 2.5 MG NEB Q4H PRN for WHEEZING AND SOB, #30 VIAL 07/18/17 Acetaminophen* (Acetaminophen* Susp) 325 Mg/10.15 Ml Solution, 650 MG PO Q4H PRN for NEEDED, ML 07/18/17 Medications Current Medications IV Flush (NS 10 ml) 10 ml PRN IV ; Start 05/06/18 at 20:30 Ascorbic Acid (Vitamin C) 500 mg DAILY GTB Last administered on 05/09/18at 08:36; Admin Dose 500 MG; Start 05/07/18 at 09:00 Aspirin (Aspirin) 81 mg DAILY GTB Last administered on 05/09/18at 08:36; Admin Dose 81 MG; Start 05/07/18 at 09:00 Albuterol/ Ipratropium (Duoneb) 3 ml Q2H RESP THERAPY PRN HHN SHORTNESS OF BREATH; Start 05/06/18 at 23:30 Albuterol/ Ipratropium (Duoneb) 3 ml Q6H RESP THERAPY HHN Last administered on 05/10/18at 11:08; Admin Dose 3 ML; Start 05/07/18 at 02:00 Lorazepam (Ativan Intensol) 0.5 mg Q6H PRN PEG ANXIETY; Start 05/06/18 at 23:30 Quetiapine Fumarate (Seroquel) 300 mg HS GTB Last administered on 05/08/18at 20:07; Admin Dose 300 MG; Start 05/07/18 at 21:00 Valproate Sodium (Depakene Liquid Cup) 100 mg QHS GTB Last administered on 05/08/18at 20:07; Admin Dose 100 MG; Start 05/07/18 at 21:00 Zinc Sulfate (Zinc Sulfate) 220 mg DAILY GTB Last administered on 05/09/18 08:36; Admin Dose 220 MG; Start 05/07/18 at 09:00 Lansoprazole (Prevacid) 30 mg DAILY@06 GTB Last administered on 05/09/18at 05:11; Admin Dose 30 MG; Start 05/07/18 at 06:00 Ondansetron HCl (Zofran Tab) 4 mg Q6H PRN GTB NAUSEA AND/OR VOMITING; Start 05/07/18 at 00:15 Multivitamins (Multivitamin) 30 ml DAILY GTB Last administered on 05/09/18at 08:36; Admin Dose 30 ML; Start 05/07/18 at 09:00 Epoetin Zen (Epogen (Esrd)) 20,000 units Tu@1700 SC ; Start 05/12/18 at 17:00 Norepinephrine 250 ml @ 1.875 mls/ hr TITRATE IV Last administered on 05/08/18at 13:33; Admin Dose 33.75 MLS/HR; Start 05/08/18 at 03:00 Colistimethate Sodium 150 mg/ Sodium Chloride 100 ml @ 200 mls/hr Q24H IVPB Last administered on 05/10/18at 12:05; Admin Dose 200 MLS/HR; Start 05/08/18 at 12:30; Stop 05/15/18 at 12:29 Ceftriaxone Sodium 50 ml @ 100 mls/hr Q24H IVPB Last administered on 05/10/18 13:43; Admin Dose 100 MLS/HR; Start 05/08/18 at 13:30 Citric Acid/ Sodium Citrate (Bicitra) 30 ml Q8 PO Last administered on 05/09/18 13:19; Admin Dose 30 ML; Start 05/09/18 at 08:00 Phenylephrine HCl 80 mg/Dextrose 250 ml @ 18.75 mls/ hr TITRATE IV Last administered on 05/10/18 05:43; Admin Dose 30 MLS/HR; Start 05/09/18 at 12:30 Miscellaneous Information (Pending Santyl Order For Wound Care) This patient goldman... PRN PRN XX WOUND CARE; Start 05/09/18 at 17:00 Linezolid 300 ml @ 300 mls/hr Q12 IVPB Last administered on 05/10/18at 09:42; Admin Dose 300 MLS/HR; Start 05/09/18 at 21:00; Stop 05/12/18 at 21:00 Sodium Bicarbonate 75 meq/Sodium Chloride 1,075 ml @ 75 mls/hr [id number] IV Last administered on 05/10/18at 09:42; Admin Dose 75 MLS/HR; Start 05/10/18 at 10:00 Allergies: Coded Allergies: shellfish derived (Unverified Allergy, Unknown, 05/06/18) Past Surgical History Past Surgical Hx: endoscopy, other Family History Significant Family History: no pertinent family hx Social History Alcohol Use: none Smoking Status: Unknown if ever smoked Drug Use: none Exam/Review of Systems Exam Vitals Vital Signs Date Temp Pulse Resp B/P (MAP) Pulse Ox O2 O2 Flow FiO2 Time Delivery Rate 05/10/18 104 17 107/63 97 12:45 (78) 05/10/18 99.0 Nasal 3.0 12:00 Cannula 05/09/18 31 02:26 Intake and Output 05/09/18 05/09/18 05/10/18 1515:00 23:00 07:00 IntakeIntake Total 1488.00 ml 1181.25 ml 810 ml OutputOutput Total 150 ml 340 ml 450 ml BalanceBalance 1338.00 ml 841.25 ml 360 ml Constitutional: non-verbal Head: normocephalic, atraumatic Eyes: nl conjunctiva, EOMI, nl lids ENMT: nl external ears & nose, nl lips & teeth, nl nasal mucosa & septum Neck: supple, non-tender, other (trach stoma partially closed with secretions ) Respiratory: crackles/rales Cardiovascular: regular rate and rhythm, nl pulses Gastrointestinal: soft Musculoskeletal: nl extremities to inspection Extremities: edema Neurological: confused, lethargic Results Result Diagram: 05/10/18 0310 05/10/18 0310 Results 24hrs Laboratory Tests Test 05/09/18 22:23 05/10/18 01:00 05/10/18 03:10 05/10/18 08:22 Blood Gas Blood arterial Blood arterial Specimen Source Arterial Blood 05/09/2018 10:20 05/10/2018 1:30: Date Drawn :13 PM 55 AM Arterial Blood 7.233 *L 7.258 *L pH (Temp corrected) Arterial Blood 27.2 L 29.7 L pCO2 (Temp correct) Arterial Blood 84.1 81.0 pO2 (Temp corrected) Arterial Blood 11.2 L 13.0 L HCO3 Arterial Blood -14.9 L -12.9 L Base Excess Arterial Blood 95.1 94.8 L Oxygen Saturatio n Steven Test ACCEPTAB ACCEPTAB Arterial Blood Right Radial Right Radial Gas Puncture Site Arterial 1.6 1.2 Blood Carboxyhem oglobin Arterial Blood 0.4 0.5 Methemoglobin Blood Gas A-a O2 97.8 H 98.0 H Differential Oxyhemoglobin 93.2 93.2 Percent Blood Gas 37.0 37.0 Temperature Blood Gas NASAL CANNULA NASAL CANNULA Modality FiO2 30.0 30.0 Blood Gas COH RN COH RN Critical Value Read Back Blood Gas LOIDA MARISCAL Notified Whom Blood Gas 05/09/2018 10:35 05/10/2018 1:47: Notified Time :59 PM 35 AM White Blood 18.1 H Count Red Blood Count 1.85 L Hemoglobin 6.3 *L Hematocrit 19.7 L Mean Corpuscular 106.5 H Volume Mean Corpuscular 34.1 H Hemoglobin Mean Corpuscular 32.0 Hemoglobin Rachael nt Red Cell 14.7 H Distribution Width Platelet Count 287 Mean Platelet 9.4 Volume Immature 2.100 H Granulocytes % Neutrophils % Segmented 78 H Neutrophils % (Manual) Band Neutrophils 13 H % (Manual) Lymphocytes % Lymphocytes % 2 L (Manual) Monocytes % Monocytes % 3 (Manual) Eosinophils % Eosinophils % 3 (Manual) Basophils % Myelocytes % 1 H (Manual) Nucleated Red 0.0 Blood Cells % Immature 0.390 H Granulocytes # Neutrophils # Neutrophils # 14.5 H (Manual) Band Neutrophils 2.3 H # Lymphocytes 0.3 L (Manual) Lymphocytes # Monocytes # Monocytes # 0.5 (Manual) Eosinophils # Basophils # Myelocytes # 0.1 H Nucleated Red Blood Cells # Platelet NORMAL Estimate Anisocytosis 1+ Microcytosis 1+ Macrocytosis 1+ Sodium Level 140 Potassium Level 3.6 Chloride Level 115 H Carbon Dioxide 10 L Level Anion Gap 15 H Blood Urea 124 H Nitrogen Creatinine 2.29 H Est Glomerular Filtrat Rate mL/min Glucose Level 137 Calcium Level 8.1 L Phosphorus Level 3.1 Magnesium Level 1.8 Urine Color RED Urine Clarity CLOUDY A Urine pH 5.0 Urine Specific 1.011 [place] Urine Ketones NEGATIVE Urine Nitrite NEGATIVE Urine Bilirubin NEGATIVE Urine NEGATIVE Urobilinogen Urine Leukocyte 2+ H Esterase Urine > 182 H Microscopic RBC Urine > 182 H Microscopic WBC Urine Hyaline FEW A Casts Urine Hemoglobin 3+ H Urine Glucose NEGATIVE Urine Total 2+ H Protein Medications Medication Current Medications IV Flush (NS 10 ml) 10 ml PRN IV ; Start 05/06/18 at 20:30 Ascorbic Acid (Vitamin C) 500 mg DAILY GTB Last administered on 05/09/18 08:36; Admin Dose 500 MG; Start 05/07/18 at 09:00 Aspirin (Aspirin) 81 mg DAILY GTB Last administered on 05/09/18 08:36; Admin Dose 81 MG; Start 05/07/18 at 09:00 Albuterol/ Ipratropium (Duoneb) 3 ml Q2H RESP THERAPY PRN HHN SHORTNESS OF BREATH; Start 05/06/18 at 23:30 Albuterol/ Ipratropium (Duoneb) 3 ml Q6H RESP THERAPY HHN Last administered on 05/10/18at 11:08; Admin Dose 3 ML; Start 05/07/18 at 02:00 Lorazepam (Ativan Intensol) 0.5 mg Q6H PRN PEG ANXIETY; Start 05/06/18 at 23:30 Quetiapine Fumarate (Seroquel) 300 mg HS GTB Last administered on 05/08/18at 20:07; Admin Dose 300 MG; Start 05/07/18 at 21:00 Valproate Sodium (Depakene Liquid Cup) 100 mg QHS GTB Last administered on 05/08/18 20:07; Admin Dose 100 MG; Start 05/07/18 at 21:00 Zinc Sulfate (Zinc Sulfate) 220 mg DAILY GTB Last administered on 05/09/18 08:36; Admin Dose 220 MG; Start 05/07/18 at 09:00 Lansoprazole (Prevacid) 30 mg DAILY@06 GTB Last administered on 05/09/18at 05:1 1; Admin Dose 30 MG; Start 05/07/18 at 06:00 Ondansetron HCl (Zofran Tab) 4 mg Q6H PRN GTB NAUSEA AND/OR VOMITING; Start 05/07/18 at 00:15 Multivitamins (Multivitamin) 30 ml DAILY GTB Last administered on 05/09/18 08:36; Admin Dose 30 ML; Start 05/07/18 at 09:00 Epoetin Zen (Epogen (Esrd)) 20,000 units Tu@1700 SC ; Start 05/12/18 at 17:00 Norepinephrine 250 ml @ 1.875 mls/ hr TITRATE IV Last administered on 05/08/18 13:33; Admin Dose 33.75 MLS/HR; Start 05/08/18 at 03:00 Colistimethate Sodium 150 mg/ Sodium Chloride 100 ml @ 200 mls/hr Q24H IVPB Last administered on 05/10/18 12:05; Admin Dose 200 MLS/HR; Start 05/08/18 at 12:30; Stop 05/15/18 at 12:29 Ceftriaxone Sodium 50 ml @ 100 mls/hr Q24H IVPB Last administered on 05/10/18 13:43; Admin Dose 100 MLS/HR; Start 05/08/18 at 13:30 Citric Acid/ Sodium Citrate (Bicitra) 30 ml Q8 PO Last administered on 05/09/18 13:19; Admin Dose 30 ML; Start 05/09/18 at 08:00 Phenylephrine HCl 80 mg/Dextrose 250 ml @ 18.75 mls/ hr TITRATE IV Last administered on 05/10/18 05:43; Admin Dose 30 MLS/HR; Start 05/09/18 at 12:30 Miscellaneous Information (Pending [facility] Order For Wound Care) This patient goldman... PRN PRN XX WOUND CARE; Start 05/09/18 at 17:00 Linezolid 300 ml @ 300 mls/hr Q12 IVPB Last administered on 05/10/18 09:42; A dmin Dose 300 MLS/HR; Start 05/09/18 at 21:00; Stop 05/12/18 at 21:00 Sodium Bicarbonate 75 meq/Sodium Chloride 1,075 ml @ 75 mls/hr [id number] IV Last administered on 05/10/18 09:42; Admin Dose 75 MLS/HR; Start 05/10/18 at 10:00 SALENA IRAHETA MD May 10, 2018 14:01
--- NOTE | 2018-05-10 14:21 | CONS ---
Assessment/Plan Assessment/Plan Hospital Course (Demo Recall) Septic as well as hemorrhagic shock Hypotension on IV pressor Acute blood loss anemia History of respiratory failure status post decannulation Preserved ejection fraction Paroxysmal atrial fibrillation, currently sinus rhythm Acute kidney injury -Titrate IV pressor to maintain SBP greater than 90 and/or map above 60 -Patient getting blood transfusion -IV fluids as per renal we will close monitor respiratory status -Hold all antihypertensives and nephrotoxic medications -We will DC patient's aspirin -Antibiotics as per infectious disease -Greater than 33 minutes of critical care time taken in the care of this patient Consultation Date/Type/Reason Admit Date/Time May 06, 2018 at 17:38 Initial Consult Date 05/10/18 Type of Consult Cardiology Requesting Provider: ROLAND GIRON MD Date/Time of Note DATE: 05/10/18 TIME: 14:18 24 HR Interval Summary Free Text/Dictation Patient with worsening hemoglobin requiring blood transfusion. Blood pressure on the lower side so on IV pressors Exam/Review of Systems Vital Signs Vitals Vital Signs Date Temp Pulse Resp B/P (MAP) Pulse Ox O2 O2 Flow FiO2 Time Delivery Rate 05/10/18 108 18 100 Simple 3.0 14:13 Mask 05/10/18 107/63 12:45 (78) 05/10/18 99.0 12:00 05/09/18 31 02:26 Intake and Output 05/09/18 05/09/18 05/10/18 1515:00 23:00 07:00 IntakeIntake Total 1488.00 ml 1181.25 ml 810 ml OutputOutput Total 150 ml 340 ml 450 ml BalanceBalance 1338.00 ml 841.25 ml 360 ml Exam Exam Sleeping but arousable, confused, no apparent distress Head: normocephalic Respiratory: other (Coarse breath sounds bilaterally, mild end expiratory wheeze) Cardiovascular: regular rate and rhythm (S1-S2 heard) Gastrointestinal: soft, non-tender, bowel sounds Extremities: edema Labs Result Diagram: 05/10/18 0310 05/10/18 0310 Results 24hrs Laboratory Tests Test 05/09/18 22:23 05/10/18 01:00 05/10/18 03:10 05/10/18 08:22 Blood Gas Blood arterial Blood arterial Specimen Source Arterial Blood 05/09/2018 10:20 05/10/2018 1:30: Date Drawn :13 PM 55 AM Arterial Blood 7.233 *L 7.258 *L pH (Temp corrected) Arterial Blood 27.2 L 29.7 L pCO2 (Temp correct) Arterial Blood 84.1 81.0 pO2 (Temp corrected) Arterial Blood 11.2 L 13.0 L HCO3 Arterial Blood -14.9 L -12.9 L Base Excess Arterial Blood 95.1 94.8 L Oxygen Saturatio n Stveen Test ACCEPTAB ACCEPTAB Arterial Blood Right Radial Right Radial Gas Puncture Site Arterial 1.6 1.2 Blood Carboxyhem oglobin Arterial Blood 0.4 0.5 Methemoglobin Blood Gas A-a O2 97.8 H 98.0 H Differential Oxyhemoglobin 93.2 93.2 Percent Blood Gas 37.0 37.0 Temperature Blood Gas NASAL CANNULA NASAL CANNULA Modality FiO2 30.0 30.0 Blood Gas COH RN COH RN Critical Value Read Back Blood Gas LOIDA MARISCAL Notified Whom Blood Gas 05/09/2018 10:35 05/10/2018 1:47: Notified Time :59 PM 35 AM White Blood 18.1 H Count Red Blood Count 1.85 L Hemoglobin 6.3 *L Hematocrit 19.7 L Mean Corpuscular 106.5 H Volume Mean Corpuscular 34.1 H Hemoglobin Mean Corpuscular 32.0 Hemoglobin Rachael nt Red Cell 14.7 H Distribution Width Platelet Count 287 Mean Platelet 9.4 Volume Immature 2.100 H Granulocytes % Neutrophils % Segmented 78 H Neutrophils % (Manual) Band Neutrophils 13 H % (Manual) Lymphocytes % Lymphocytes % 2 L (Manual) Monocytes % Monocytes % 3 (Manual) Eosinophils % Eosinophils % 3 (Manual) Basophils % Myelocytes % 1 H (Manual) Nucleated Red 0.0 Blood Cells % Immature 0.390 H Granulocytes # Neutrophils # Neutrophils # 14.5 H (Manual) Band Neutrophils 2.3 H # Lymphocytes 0.3 L (Manual) Lymphocytes # Monocytes # Monocytes # 0.5 (Manual) Eosinophils # Basophils # Myelocytes # 0.1 H Nucleated Red Blood Cells # Platelet NORMAL Estimate Anisocytosis 1+ Microcytosis 1+ Macrocytosis 1+ Sodium Level 140 Potassium Level 3.6 Chloride Level 115 H Carbon Dioxide 10 L Level Anion Gap 15 H Blood Urea 124 H Nitrogen Creatinine 2.29 H Est Glomerular Filtrat Rate mL/min Glucose Level 137 Calcium Level 8.1 L Phosphorus Level 3.1 Magnesium Level 1.8 Urine Color RED Urine Clarity CLOUDY A Urine pH 5.0 Urine Specific 1.011 [place] Urine Ketones NEGATIVE Urine Nitrite NEGATIVE Urine Bilirubin NEGATIVE Urine NEGATIVE Urobilinogen Urine Leukocyte 2+ H Esterase Urine > 182 H Microscopic RBC Urine > 182 H Microscopic WBC Urine Hyaline FEW A Casts Urine Hemoglobin 3+ H Urine Glucose NEGATIVE Urine Total 2+ H Protein Medications Medications Current Medications IV Flush (NS 10 ml) 10 ml PRN IV ; Start 05/06/18 at 20:30 Ascorbic Acid (Vitamin C) 500 mg DAILY GTB Last administered on 05/09/18 08:36; Admin Dose 500 MG; Start 05/07/18 at 09:00 Aspirin (Aspirin) 81 mg DAILY GTB Last administered on 05/09/18 08:36; Admin Dose 81 MG; Start 05/07/18 at 09:00 Albuterol/ Ipratropium (Duoneb) 3 ml Q2H RESP THERAPY PRN HHN SHORTNESS OF BREATH; Start 05/06/18 at 23:30 Albuterol/ Ipratropium (Duoneb) 3 ml Q6H RESP THERAPY HHN Last administered on 05/10/18 14:13; Admin Dose 3 ML; Start 05/07/18 at 02:00 Lorazepam (Ativan Intensol) 0.5 mg Q6H PRN PEG ANXIETY; Start 05/06/18 at 23:30 Quetiapine Fumarate (Seroquel) 300 mg HS GTB Last administered on 05/08/18 20:07; Admin Dose 300 MG; Start 05/07/18 at 21:00 Valproate Sodium (Depakene Liquid Cup) 100 mg QHS GTB Last administered on 05/08/18 20:07; Admin Dose 100 MG; Start 05/07/18 at 21:00 Zinc Sulfate (Zinc Sulfate) 220 mg DAILY GTB Last administered on 05/09/18 08:36; Admin Dose 220 MG; Start 05/07/18 at 09:00 Lansoprazole (Prevacid) 30 mg DAILY@06 GTB Last administered on 05/09/18 05:11; Admin Dose 30 MG; Start 05/07/18 at 06:00 Ondansetron HCl (Zofran Tab) 4 mg Q6H PRN GTB NAUSEA AND/OR VOMITING; Start 05/07/18 at 00:15 Multivitamins (Multivitamin) 30 ml DAILY GTB Last administered on 05/09/18 08:36; Admin Dose 30 ML; Start 05/07/18 at 09:00 Epoetin Zen (Epogen (Esrd)) 20,000 units Tu@1700 SC ; Start 05/12/18 at 17:00 Norepinephrine 250 ml @ 1.875 mls/ hr TITRATE IV Last administered on 05/08/18 13:33; Admin Dose 33.75 MLS/HR; Start 05/08/18 at 03:00 Colistimethate Sodium 150 mg/ Sodium Chloride 100 ml @ 200 mls/hr Q24H IVPB Last administered on 05/10/18 12:05; Admin Dose 200 MLS/HR; Start 05/08/18 at 12:30; Stop 05/15/18 at 12:29 Ceftriaxone Sodium 50 ml @ 100 mls/hr Q24H IVPB Last administered on 05/10/18 13:43; Admin Dose 100 MLS/HR; Start 05/08/18 at 13:30 Citric Acid/ Sodium Citrate (Bicitra) 30 ml Q8 PO Last administered on 05/09/18 13:19; Admin Dose 30 ML; Start 05/09/18 at 08:00 Phenylephrine HCl 80 mg/Dextrose 250 ml @ 18.75 mls/ hr TITRATE IV Last administered on 05/10/18 13:30; Admin Dose 15 MLS/HR; Start 05/09/18 at 12:30 Miscellaneous Information (Pending [facility] Order For Wound Care) This patient goldman... PRN PRN XX WOUND CARE; Start 05/09/18 at 17:00 Linezolid 300 ml @ 300 mls/hr Q12 IVPB Last administered on 05/10/18 09:42; Admin Dose 300 MLS/HR; Start 05/09/18 at 21:00; Stop 05/12/18 at 21:00 Sodium Bicarbonate 75 meq/Sodium Chloride 1,075 ml @ 75 mls/hr [id number] IV Last administered on 05/10/18 09:42; Admin Dose 75 MLS/HR; Start 05/10/18 at 10:00 Evangelista Scanlon DO May 10, 2018 14:21
--- NOTE | 2018-05-10 16:26 | CONS ---
[facility] HCIS Consult Follow-up Patient Name: Zuly Mcwilliams Unit Number: [id number] Date of : 1945 Patient Status: Admitted Inpatient Attending Doctor: Roland Giron MD Edit: CELESTINE SANCHEZ M.D. on 05/11/18 @ 02:01 Daniel: I discussed the management with THREAD SPINNER Merle and agree with her Assessment/Plan Assessment/Plan Hospital Course (Demo Recall) sepsis, SIRS, pulmonary - Severe sepsis with septic shock d/t complicated UTI +/- anterior neck skin and soft tissue infection - UTI d/t Kleb pneumoniae CRE and Strep agalactiae (grp B) 05/06/2018 - chronic hypoxic respiratory failure - on low flow oxygen - anterior neck wound post decannulation with K pneumonia ESBL, MRSA, strep agalactiae grp b, and corynebacter jeikeium grp jk 05/06/18 - recent decannulation - h/o tracheostomy on 06/11/2017 - s/p SIRS from UGIB; Pt's WBC level improved with hydration and without antibiotic, improved - s/p pneumonia vs. colonization of the airway by pseudomonas and ESBL+klebsiella - h/o possible, recurrent HCAP due to pseudomonas and ESBL+klebsiella - h/o recurrent HCAP due to MRSA and Enterobacter (culture of tracheal aspirate on 07/16/2017 that was collected at [facility]) . Pt took vancomycin and ceftazidime - h/o acute respiratory distress post-thoracentesis, resolved - h/o thoracentesis on 07/18/2017, transudative (protein <2, LDH 279) - h/o bleeding from the trach site which might precipitated another episode of aspiration or pneumonitis - h/o septic shock due to pneumonia, ARDS, bacteremia, fungemia - h/o pneumonia with ARDS prior to transfer to [facility] - h/o smoking - COPD - ILD Cardiac - PAF, currently sinus tachycardia GI - dysphagia, s/p PEG placement 06/13/2018 - on GTF but previously was eating - s/p coffee ground emesis/UGIB 12/23/2017 due to deep ulceration of distal esophagus and gastritis on EGD 12/26/2017. No e/o H. pylori - h/o possible appendicitis on CT on 11/22/2017, Pt's RLQ is not TTP. Pt took ertapenem (11/24/2017-12/01/2017) - h/o intermittent diarrhea, C diff negative 07/30/2017 (Pt had multiple negative C. diff tests at [facility] prior to transfer here) - h/o extensive adhesions lower abdominal and pelvis between small bowel to each other and to colon and to abdominal wall, anterior pelvic wall chronic abscess secondary to probably an old perforated diverticulitis, torsion of small bowel around these dense adhesion causing multiple obstructive points - h/o laparoscopic exploration and extensive lysis of adhesions and drainage of anterior pelvic wall abscess 09/16/2017. Cultures were negative, no e/o malignancy. Pt took pip/tazo (09/16/2017-09/26/2017) - h/o partial obstruction mid jejunum in L anterior central pelvis with suggestion of a 3 cm soft tissue mass on CT 08/28/2017 - h/o internal stomal deep ulcer behind the internal bumper, gastritis and esophagitis, Rodriguez's cannot be ruled out, per EGD with biopsy 07/23/2017 - h/o GIB s/p flex sig showed polyp; stool OB negative on 06/29/17 - h/o stool OB positive - h/o SBO and ileus due to pain meds - h/o EGD and exchange of PEG on 09/01/2017 - h/o mildly elevated CEA renal/ - recurrent NATHAN on CKD - Hyponatremia - Hyperkalemia, now hypokalemia - Metabolic acidosis - h/o vaginal bleed - h/o colonization of urinary tract by ESBL+klebsiella, VRE - h/o recurrent, symptomatic UTI due to carbapenem-resistant kleb (MDR strain) per urine culture 10/04/17, 10/09/17, 10/21/2017, P took colistin (10/09/2017- 10/15/2017), fosfomycin for carbapenemase-producing klebsiella and VRE on and 10/28/2017 - h/o funguria - urinary retention, Pt now has a Garza catheter. In the past she gets catheterized by Pt's RN q6-12hrs but is sometimes non-compliant fungemia, bacteremia - h/o bacteremia due to coag negative Staph, probable contaminant as her WBC level improved initially without antibiotic - 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 improved. Probable man ifestation of endocarditis. Pt declined MRI on 08/06/2017 - h/o infection of wound of LLE - h/o debridement of wound of LLE on 08/06/2017 - h/o infection of R toes due to pseudomonas. coagulase negative Staph likely a colonizer. resolved - h/o intertrigo of the groin, resolved with nystatin powder - h/o scabies, locally crusted lesion over L scapula, s/p permethrin cream and pGT ivermectin on 08/11/2017, 08/12/2017, 08/19/2017. Repeat skin scraping on 08/21/2017 was negative for scabies psych, neuro - acute toxic metabolic encephalopathy - decreased hearing b/l - h/o critical illness polyneuropathy - anxiety/depression, bipolar d/o, seen by Psychiatry in the past - chronic pain syndrome hematological, vascular - Macrocytic anemia - chronic anemia requiring blood transfusion intermittently - 3.1 cm AAA on imaging - PVD other chronic conditions - adrenal insufficiency - protein calorie malnutrition - medical non-compliance: she would refuse her medications, treatment and straight catheterization at times Recommendations: - Complete IV Colistin (05/08/2018-05/10/18). Gregorio spoke to Claudia at [facility] yesterday and requested CRE in urine to be tested against colistin, Avycaz, Zerbaxa, and Vabomere - awaiting sensis. - Discontinue ceftriaxone (05/08/2018-) , start Merrem, renally adjusted for ESBL - Continue Zyvox (05/09/18 - ) to cover MRSA x7d - Ordered: Valproic acid level for 05/12/18 - pharmacist will make adjustments to valproic acid if needed while on merrem - F/u blood cultures (NGTD) - F/u Echo - Monitor CrCl - Wean pressors as tolerated Management d/w SCUBA DIVER Leigh, pharmacist, and with Dr. Sanchez Critical care time spent: 50 minutes. Consultation Date/Type/Reason Admit Date/Time May 06, 2018 at 17:38 Initial Consult Date 05/07/18 Type of Consult ID Requesting Provider: ROLAND GIRON MD Date/Time of Note DATE: 05/10/18 TIME: 16:22 24 HR Interval Summary Free Text/Dictation Per d/w JAYANT Abraham, she has been able to wean the patient down on Earnest. The patient has remained afebrile. Tracheal aspirate has resulted with ESBL K pneumonia and MRSA. Patient is unable to contribute to ROS d/t nonverbal. Patient did open her eyes and look at me and made a moaning noise as if she was attempting to communicate with me. Exam/Review of Systems Exam Vitals Vital Signs Date Temp Pulse Resp B/P (MAP) Pulse Ox O2 O2 Flow FiO2 Time Delivery Rate 05/10/18 110 20 129/57 96 14:45 (81) 05/10/18 Simple 3.0 14:13 Mask 05/10/18 99.0 12:00 05/09/18 31 02:26 Intake and Output 05/09/18 05/09/18 05/10/18 1515:00 23:00 07:00 IntakeIntake Total 1488.00 ml 1181.25 ml 810 ml OutputOutput Total 150 ml 340 ml 450 ml BalanceBalance 1338.00 ml 841.25 ml 360 ml Allergies Coded Allergies shellfish derived (Unverified Allergy, Unknown, 05/06/18) Exam Constitutional: well developed, frail, obese Psych: other (BRITTANY) Head: normocephalic, atraumatic ENMT: nl external ears & nose, nl nasal mucosa & septum, other (OP dry, mouth breathing, no thrush noted.) Neck: supple, non-tender, other (anterior neck dressing is c/d/i, s/p recent decannulation. Reviewed photo in chart) Respiratory: diminished breath sounds, other (breath sounds mildly coarse bilaterally) Cardiovascular: regular rate and rhythm, nl pulses, other (tachycardic) Gastrointestinal: soft, non-tender, bowel sounds (normoactive), surgical scars, other (PEG site is c/d/i, connected to TF) Genitourinary - Female: other (+ F/c) Musculoskeletal: muscle weakness Extremities: other (RUE PICC, site is c/d/i, bilateral foot drop noted ) Neurological: other (opened eyes to verbal stimuli, made a moaning noise in response to my question, did not follow any commands) Skin: nl turgor, other (LLE wrapped with a c/d/i kerlix dressing. heels with foam dressings. Stage II sacral decub with MASD, reviewed nsg notes/photos. ) Results Result Diagram: 05/10/18 0310 05/10/18 0310 Results 24hrs Laboratory Tests Test 05/09/18 22:23 05/10/18 01:00 05/10/18 03:10 05/10/18 08:22 Blood Gas Blood arterial Blood arterial Specimen Source Arterial Blood 05/09/2018 10:20 05/10/2018 1:30: Date Drawn :13 PM 55 AM Arterial Blood 7.233 *L 7.258 *L pH (Temp corrected) Arterial Blood 27.2 L 29.7 L pCO2 (Temp correct) Arterial Blood 84.1 81.0 pO2 (Temp corrected) Arterial Blood 11.2 L 13.0 L HCO3 Arterial Blood -14.9 L -12.9 L Base Excess Arterial Blood 95.1 94.8 L Oxygen Saturatio n Steven Test ACCEPTAB ACCEPTAB Arterial Blood Right Radial Right Radial Gas Puncture Site Arterial 1.6 1.2 Blood Carboxyhem oglobin Arterial Blood 0.4 0.5 Methemoglobin Blood Gas A-a O2 97.8 H 98.0 H Differential Oxyhemoglobin 93.2 93.2 Percent Blood Gas 37.0 37.0 Temperature Blood Gas NASAL CANNULA NASAL CANNULA Modality FiO2 30.0 30.0 Blood Gas COH RN COH RN Critical Value Read Back Blood Gas LOIDA MARISCAL Notified Whom Blood Gas 05/09/2018 10:35 05/10/2018 1:47: Notified Time :59 PM 35 AM White Blood 18.1 H Count Red Blood Count 1.85 L Hemoglobin 6.3 *L Hematocrit 19.7 L Mean Corpuscular 106.5 H Volume Mean Corpuscular 34.1 H Hemoglobin Mean Corpuscular 32.0 Hemoglobin Rachael nt Red Cell 14.7 H Distribution Width Platelet Count 287 Mean Platelet 9.4 Volume Immature 2.100 H Granulocytes % Neutrophils % Segmented 78 H Neutrophils % (Manual) Band Neutrophils 13 H % (Manual) Lymphocytes % Lymphocytes % 2 L (Manual) Monocytes % Monocytes % 3 (Manual) Eosinophils % Eosinophils % 3 (Manual) Basophils % Myelocytes % 1 H (Manual) Nucleated Red 0.0 Blood Cells % Immature 0.390 H Granulocytes # Neutrophils # Neutrophils # 14.5 H (Manual) Band Neutrophils 2.3 H # Lymphocytes 0.3 L (Manual) Lymphocytes # Monocytes # Monocytes # 0.5 (Manual) Eosinophils # Basophils # Myelocytes # 0.1 H Nucleated Red Blood Cells # Platelet NORMAL Estimate Anisocytosis 1+ Microcytosis 1+ Macrocytosis 1+ Sodium Level 140 Potassium Level 3.6 Chloride Level 115 H Carbon Dioxide 10 L Level Anion Gap 15 H Blood Urea 124 H Nitrogen Creatinine 2.29 H Est Glomerular Filtrat Rate mL/min Glucose Level 137 Calcium Level 8.1 L Phosphorus Level 3.1 Magnesium Level 1.8 Urine Color RED Urine Clarity CLOUDY A Urine pH 5.0 Urine Specific 1.011 [place] Urine Ketones NEGATIVE Urine Nitrite NEGATIVE Urine Bilirubin NEGATIVE Urine NEGATIVE Urobilinogen Urine Leukocyte 2+ H Esterase Urine > 182 H Microscopic RBC Urine > 182 H Microscopic WBC Urine Hyaline FEW A Casts Urine Hemoglobin 3+ H Urine Glucose NEGATIVE Urine Total 2+ H Protein Medications Medication Current Medications IV Flush (NS 10 ml) 10 ml PRN IV ; Start 05/06/18 at 20:30 Ascorbic Acid (Vitamin C) 500 mg DAILY GTB Last administered on 05/09/18at 08:36; Admin Dose 500 MG; Start 05/07/18 at 09:00 Albuterol/ Ipratropium (Duoneb) 3 ml Q2H RESP THERAPY PRN HHN SHORTNESS OF BREATH; Start 05/06/18 at 23:30 Albuterol/ Ipratropium (Duoneb) 3 ml Q6H RESP THERAPY HHN Last administered on 05/10/18at 14:13; Admin Dose 3 ML; Start 05/07/18 at 02:00 Lorazepam (Ativan Intensol) 0.5 mg Q6H PRN PEG ANXIETY; Start 05/06/18 at 23:30 Quetiapine Fumarate (Seroquel) 300 mg HS GTB Last administered on 05/08/18 20:07; Admin Dose 300 MG; Start 05/07/18 at 21:00 Valproate Sodium (Depakene Liquid Cup) 100 mg QHS GTB Last administered on 05/08/18 20:07; Admin Dose 100 MG; Start 05/07/18 at 21:00 Zinc Sulfate (Zinc Sulfate) 220 mg DAILY GTB Last administered on 05/09/18 08:36; Admin Dose 220 MG; Start 05/07/18 at 09:00 Lansoprazole (Prevacid) 30 mg DAILY@06 GTB Last administered on 05/09/18 05:11; Admin Dose 30 MG; Start 05/07/18 at 06:00 Ondansetron HCl (Zofran Tab) 4 mg Q6H PRN GTB NAUSEA AND/OR VOMITING; Start 05/07/18 at 00:15 Multivitamins (Multivitamin) 30 ml DAILY GTB Last administered on 05/09/18at 08:36; Admin Dose 30 ML; Start 05/07/18 at 09:00 Epoetin Zen (Epogen (Esrd)) 20,000 units Tu@1700 SC ; Start 05/12/18 at 17:00 Norepinephrine 250 ml @ 1.875 mls/ hr TITRATE IV Last administered on 05/08/18at 13:33; Admin Dose 33.75 MLS/HR; Start 05/08/18 at 03:00 Colistimethate Sodium 150 mg/ Sodium Chloride 100 ml @ 200 mls/hr Q24H IVPB Last administered on 05/10/18 12:05; Admin Dose 200 MLS/HR; Start 05/08/18 at 12:30; Stop 05/15/18 at 12:29 Ceftriaxone Sodium 50 ml @ 100 mls/hr Q24H IVPB Last administered on 05/10/18 13:43; Admin Dose 100 MLS/HR; Start 05/08/18 at 13:30 Citric Acid/ Sodium Citrate (Bicitra) 30 ml Q8 PO Last administered on 05/09/18at 13:19; Admin Dose 30 ML; Start 05/09/18 at 08:00 Phenylephrine HCl 80 mg/Dextrose 250 ml @ 18.75 mls/ hr TITRATE IV Last administered on 05/10/18at 13:30; Admin Dose 15 MLS/HR; Start 05/09/18 at 12:30 Miscellaneous Information (Pending Santyl Order For Wound Care) This patient goldman... PRN PRN XX WOUND CARE; Start 05/09/18 at 17:00 Linezolid 300 ml @ 300 mls/hr Q12 IVPB Last administered on 05/10/18at 09:42; Admin Dose 300 MLS/HR; Start 05/09/18 at 21:00; Stop 05/12/18 at 21:00 Sodium Bicarbonate 75 meq/Sodium Chloride 1,075 ml @ 75 mls/hr [id number] IV Last administered on 05/10/18 09:42; Admin Dose 75 MLS/HR; Start 05/10/18 at 10:00 KENA MÉNDEZ NP May 10, 2018 16:26
[2018-05-10] MEDS: MEROPENEM 1 GM/50ML(PMX) 50 ML IVPB SCH (18:28)
[2018-05-10] MEDS: VALPROIC ACID LIQUID CUP 250 MG/5 ML CUP GTB SCH (20:06)
[2018-05-10] MEDS: QUETIAPINE 100 MG TAB GTB SCH (20:06)
[2018-05-11] VITALS (88 sets, daily range): BP systolic 58–155; BP diastolic 30–118; PULSE 105–136; RESP 14–31
[2018-05-11] MEDS: ALBUTEROL/IPRATROPIUM (NEB) 3 ML AMP HHN SCH ×4 (01:04→20:22)
[2018-05-11] MEDS: SODIUM BICARBONATE (IV ADD) 75 MEQ in SOD CHLORIDE 0.45% 1,000 ML IV SCH ×2 (01:46→14:44)
[2018-05-11] MEDS: LANSOPRAZOLE 30 MG CAP GTB SCH (05:17)
[2018-05-11] MEDS: CITRIC ACID/NA CITRATE 30 ML CUP PO SCH ×3 (05:17→21:12)
[2018-05-11] MEDS ORDERED: MAGNESIUM SULFATE 2 GM/50 ML 50 ML IVPB ONE (07:00)
[2018-05-11] MEDS: POTASSIUM CHLORIDE 100 ML IVPB SCH ×2 (07:42→12:52)
[2018-05-11] MEDS: MULTIVITAMINS 30 ML CUP GTB SCH (08:17)
[2018-05-11] MEDS: ASCORBIC ACID 500 MG TAB GTB SCH (08:18)
[2018-05-11] MEDS: ZINC SULFATE 220 MG CAP GTB SCH (08:18)
[2018-05-11] MEDS: MEROPENEM 1 GM/50ML(PMX) 50 ML IVPB SCH (08:24)
[2018-05-11] MEDS: LINEZOLID 600 MG/300 ML (PMX) 300 ML IVPB SCH (08:24)
--- NOTE | 2018-05-11 08:25 | PN ---
DATE: 05/11/2018 SUBJECTIVE: The patient remains critically ill on pressor support. No other acute events noted. No hemoptysis, hematemesis or hematochezia. OBJECTIVE: VITAL SIGNS: Blood pressure is 131/100, respirations 19, pulse 118, temperature 98.6. HEENT: Head is normocephalic. NECK: Supple. HEART: Regular rate. LUNGS: Show diminished breath sounds at the base. ABDOMEN: Soft, nontender to palpation without rebound or guarding. EXTREMITIES: Negative for clubbing, cyanosis. Positive edema. DERMATOLOGIC: No rashes. MUSCULOSKELETAL: No joint effusion. NEUROLOGIC: No change in exam. MEDICATIONS: Reviewed. LABORATORY DATA: Shows sodium 140, potassium 3.3, chloride 106, bicarbonate 17, BUN 114, creatinine 2.16, magnesium 1.6. White count 16.8, hemoglobin 8.9, platelet count is 252. The patient's culture s have been reviewed. IMAGING STUDIES: Reviewed. ASSESSMENT AND PLAN: 1. Nonoliguric acute kidney injury on top of chronic kidney disease with previous baseline creatinin e between 2 to 2.5 mg/dL. Etiology of acute kidney injury is secondary to sepsis, acute tubular necr osis. The patient's renal function has slowly been improving with supportive care, pressor support, and antibiotic therapy. The patient does, however, have a significant azotemia, which is multifactor ial due to acute kidney injury, chronic kidney disease, hypercatabolic state. At this point, we will continue to monitor. Continue current treatment plan. No immediate need for renal replacement ther apy at this time. 2. Metabolic acidosis with respiratory compensation. The patient's ABG was reviewed. Continue bica rbonate drip. Bicarbonate levels have been improving. 3. Anemia. Monitor hemoglobin and hematocrit levels. 4. Mineral bone disorder, monitor calcium and phosphorus levels. 5. Hypokalemia and hypomagnesemia. Continue to monitor and replete. 6. Septic shock secondary to urinary tract infection. The patient remains on pressor support, antib iotic therapy. Continue to titrate down pressors as tolerated. Continue IV hydration. 7. Tachyarrhythmia. Continue to monitor. 8. Chronic respiratory failure. The patient is currently stable on nasal cannula. 9. Dysphagia, status post percutaneous endoscopic gastrostomy. Continue to monitor. Resume tube fe eding when stable. 10. Acute encephalopathy, etiology is toxic metabolic. 11. History of heart failure. Monitor closely on IV fluids. Deferring diuretic therapy in the sett ing of shock. Please note I spent over 30 minutes of critical care time with this patient. Dictated By: JEANA BANSAL DO NR/NTS Conf#: [id number] DID#: [id number] CC: ROLAND GIORN MD; QUINTEN UMAÑA MD;*EndCC*
--- NOTE | 2018-05-11 09:14 | CONS ---
Consult Date/Type/Reason Admit Date/Time May 06, 2018 at 17:38 Initial Consult Date 05/10/18 Type of Consult Pulmonary Requesting Provider: ROLAND GIRON MD Date/Time of Note DATE: 05/11/18 TIME: 09:11 Subjective Remains confused agitated with respiratory variation. Intermittent tachypnea. Coarse rales with moderate secretions. Objective Vital Signs Date Temp Pulse Resp B/P (MAP) Pulse Ox O2 O2 Flow FiO2 Time Delivery Rate 05/11/18 Nasal 3.0 08:00 Cannula 05/11/18 98.8 115 15 105/54 94 08:00 (71) 05/09/18 31 02:26 Intake and Output 05/10/18 05/10/18 05/11/18 1515:00 23:00 07:00 IntakeIntake Total 1442.27 ml 1353.15 ml 600.04 ml OutputOutput Total 260 ml 290 ml 262 ml BalanceBalance 1182.27 ml 1063.15 ml 338.04 ml Exam GENERAL: Chronically ill-appearing lady on nasal cannula O2 VITAL SIGNS: per chart NECK: Supple. No JVD or lymphadenopathy. CARDIAC EXAM: S1, S2. No added sounds or murmurs. CHEST: Diminished air entry bilaterally with rales ABDOMEN: Soft, nontender. No guarding or rebound. EXTREMITIES: No cyanosis, clubbing edema +1 NEUROLOGIC: Unable to assess remains somnolent Vent Setting Fraction of Inspired Oxygen pe: 31 Results/Medications Result Diagram: 05/11/18 0430 05/11/18 0430 Results 24 hrs Laboratory Tests Test 05/10/18 18:15 05/11/18 04:30 05/11/18 04:44 05/11/18 05:00 Hemoglobin 9.4 #L 8.9 L Hematocrit 29.0 #L 27.1 L White Blood 16.8 H Count Red Blood Count 2.69 #L Mean Corpuscular 100.7 Volume Mean Corpuscular 33.1 H Hemoglobin Mean Corpuscular 32.8 Hemoglobin Rachael nt Red Cell 16.5 H Distribution Width Platelet Count 252 Mean Platelet 9.1 Volume Immature 1.600 H Granulocytes % Neutrophils % Segmented 77 Neutrophils % (Manual) Band Neutrophils 8 H % (Manual) Lymphocytes % Lymphocytes % 6 L (Manual) Monocytes % Monocytes % 6 (Manual) Eosinophils % Eosinophils % 1 (Manual) Basophils % Myelocytes % 1 H (Manual) Plasma Cells % 1 (manual) Nucleated Red 0.0 Blood Cells % Immature 0.270 H Granulocytes # Neutrophils # Neutrophils # 13.2 H (Manual) Band Neutrophils 1.3 H # Lymphocytes 1.0 (Manual) Lymphocytes # Monocytes # Monocytes # 1.0 H (Manual) Eosinophils # Basophils # Myelocytes # 0.1 H Plasma Cells # 0.1 H (manual) Nucleated Red Blood Cells # Platelet NORMAL Estimate Polychromasia 1+ Poikilocytosis 2+ Anisocytosis 2+ Macrocytosis 2+ Sodium Level 140 Potassium Level 3.3 L Chloride Level 106 Carbon Dioxide 17 L Level Anion Gap 17 H Blood Urea 114 H Nitrogen Creatinine 2.15 H Est Glomerular Filtrat Rate mL/min Glucose Level 99 Calcium Level 7.6 L Phosphorus Level 3.2 Magnesium Level 1.6 L Lactic Acid 0.7 Level Blood Gas Blood arterial Specimen Source Arterial Blood 05/11/2018 5:00: Date Drawn 01 AM Arterial Blood 7.233 *L pH (Temp corrected) Arterial Blood 27.9 L pCO2 (Temp correct) Arterial Blood 72.2 L pO2 (Temp corrected) Arterial Blood 11.5 L HCO3 Arterial Blood -14.6 L Base Excess Arterial Blood 92.8 L Oxygen Saturatio n Steven Test ACCEPTAB Arterial Blood Right Radial Gas Puncture Site Arterial 1.2 Blood Carboxyhem oglobin Arterial Blood 0.1 Methemoglobin Blood Gas A-a O2 108.9 H Differential Oxyhemoglobin 91.6 L Percent Blood Gas 37.0 Temperature Blood Gas NASAL CANNULA Modality FiO2 30.0 Blood Gas SOHAN SABA Critical Value Read Back Blood Gas IN Notified Whom Blood Gas 05/11/2018 5:21: Notified Time 50 AM Test 05/11/18 05:37 Lab Scanned BLOOD TRANSFUSI Report ON Medications Current Medications IV Flush (NS 10 ml) 10 ml PRN IV ; Start 05/06/18 at 20:30 Ascorbic Acid (Vitamin C) 500 mg DAILY GTB Last administered on 05/09/18at 08:36; Admin Dose 500 MG; Start 05/07/18 at 09:00 Albuterol/ Ipratropium (Duoneb) 3 ml Q2H RESP THERAPY PRN HHN SHORTNESS OF BR EATH; Start 05/06/18 at 23:30 Albuterol/ Ipratropium (Duoneb) 3 ml Q6H RESP THERAPY HHN Last administered on 05/11/18 09:08; Admin Dose 3 ML; Start 05/07/18 at 02:00 Lorazepam (Ativan Intensol) 0.5 mg Q6H PRN PEG ANXIETY; Start 05/06/18 at 23:30 Quetiapine Fumarate (Seroquel) 300 mg HS GTB Last administered on 05/08/18 20:07; Admin Dose 300 MG; Start 05/07/18 at 21:00 Valproate Sodium (Depakene Liquid Cup) 100 mg QHS GTB Last administered on 05/08/18 20:07; Admin Dose 100 MG; Start 05/07/18 at 21:00 Zinc Sulfate (Zinc Sulfate) 220 mg DAILY GTB Last administered on 05/09/18 08:36; Admin Dose 220 MG; Start 05/07/18 at 09:00 Lansoprazole (Prevacid) 30 mg DAILY@06 GTB Last administered on 05/09/18 05:11; Admin Dose 30 MG; Start 05/07/18 at 06:00 Ondansetron HCl (Zofran Tab) 4 mg Q6H PRN GTB NAUSEA AND/OR VOMITING; Start 05/07/18 at 00:15 Multivitamins (Multivitamin) 30 ml DAILY GTB Last administered on 05/09/18 08:36; Admin Dose 30 ML; Start 05/07/18 at 09:00 Epoetin Zen (Epogen (Esrd)) 20,000 units Tu@1700 SC ; Start 05/12/18 at 17:00 Norepinephrine 250 ml @ 1.875 mls/ hr TITRATE IV Last administered on 05/08/18 13:33; Admin Dose 33.75 MLS/HR; Start 05/08/18 at 03:00 Citric Acid/ Sodium Citrate (Bicitra) 30 ml Q8 PO Last administered on 05/09/18 13:19; Admin Dose 30 ML; Start 05/09/18 at 08:00 Phenylephrine HCl 80 mg/Dextrose 250 ml @ 18.75 mls/ hr TITRATE IV Last administered on 05/10/18 13:30; Admin Dose 15 MLS/HR; Start 05/09/18 at 12:30 Miscellaneous Information (Pending Santyl Order For Wound Care) This patient goldman... PRN PRN XX WOUND CARE; Start 05/09/18 at 17:00 Linezolid 300 ml @ 300 mls/hr Q12 IVPB Last administered on 05/11/18at 08:24; Admin Dose 300 MLS/HR; Start 05/09/18 at 21:00; Stop 05/12/18 at 21:00 Sodium Bicarbonate 75 meq/Sodium Chloride 1,075 ml @ 75 mls/hr [id number] IV Last administered on 05/11/18at 01:46; Admin Dose 75 MLS/HR; Start 05/10/18 at 10:00 Meropenem/Sodium Chloride 50 ml @ 100 mls/hr Q12 IVPB Last administered on 05/11/18at 08:24; Admin Dose 100 MLS/HR; Start 05/10/18 at 18:00 Potassium Chloride 100 ml @ 50 mls/hr Q2H IVPB Last administered on 05/11/18at 07:42; Admin Dose 50 MLS/HR; Start 05/11/18 at 07:00; Stop 05/11/18 at 10:59 Assessment/Plan Hospital Course (Demo Recall) IMP: 1. Septic Shock--2/2 urosepsis 2. Acute Renal Failure--likely non-oliguric ATN 3. Metabolic Acidosis--mostly 2/2 ARF 4. Encephalopathy--toxic-metabolic 2/2 infection and ARF, in addition to b aseline 5. Anemia--r/o acute GIB 6. H/O abdominal abscess 7. Possible underlying ARDS versus interstitial lung disease. History of respiratory failure status post decannulation RECS: 1. IVF's with NaHCO3 2. Respiratory status is tenuous though at this time she is protecting her airway and is compensating for the metabolic acidosis. May require reintubation 3. Abx as per ID 4. Follow mental status and gases, low threshold for intubation 5. Aspiration precautions pulmonary toilet 6. Monitor H&H post transfusion 7. Follow lactate 8. Renal recommendations 9. Consider family conference regarding goals of care prognosis is extremely poor. Critical care time 40 minutes. LAURA JENKINS MD, [facility] May 11, 2018 09:14
--- NOTE | 2018-05-11 11:10 | RADRPT ---
Echocardiogram Report Patient Name: RHONDA LAWSPatient ID: [id number] : 1945 (73y 4m)Study Date: 05/10/2018 3:00:38 PM Gender: FAccession #: [id number] Tech: Eriberto Meredith RDCS [facility]Physician: EVANGELISTA SCANLON Height(Cm): BSA: Weight(Kg): Quality: AdequateAccount #: Procedures: Echocardiographic Report: Transthoracic echocardiogram with complete 2D, M-Mode, and doppler examination. Indications: Hypotension. Measurements: 2D/M Mode Doppler Measurement Value Normal Range Measurement Value Normal Range LVIDd 2D 3.7 [ 3.8 - 5.2 ] cm AV Peak Rashel 1.9 [ 100.0 - 170.0 ] cm/se c LVIDs 2D 2.7 [ 2.2 - 3.5 ] cm AV Peak PG 15.0 [ 2.0 - 9.0 ] mmHg LVPWd 2D 0.9 [ 0.6 - 0.9 ] cm LVOT Peak Rashel 1.5 [ 70.0 - 110.0 ] cm/sec IVSd 2D 0.9 [ 0.6 - 0.9 ] cm LVOT Peak PG 9.0 [ 2.0 - 6.0 ] mmHg AoR Diam 2D 2.5 [ 2.3 - 3.1 ] cm MV E Peak Rashel 1.3 [ 60.0 - 130.0 ] cm/sec EDV 2D 59.3 [ 46.0 - 106.0 ] ml MV A Peak Rashel 1.4 [ 100.0 - 120.0 ] cm/se c ESV 2D 27.0 [ 14.0 - 42.0 ] ml MV E/A 0.9 [ 0.8 - 1.5 ] ratio EF 2D 54.5 [ 54.0 - 74.0 ] percent MV PHT 47.0 [ 20.0 - 100.0 ] msec LA Dimen 2D 3.4 [ 2.7 - 3.8 ] cm MV Decel Time 162 [ 104 - 258 ] msec MV Decel [place] 8 Med E` Rashel 0.1 cm/sec MV E/A 0.9 [ 0.8 - 1.5 ] ratio MVA PHT 4.7 [ 2.0 - 4.0 ] cm2 TR Peak Rashel 3.0 [ 100.0 - 280.0 ] cm/se c TR Peak PG 37.0 mmHg Findings: Left Ventricle: Normal left ventricular systolic function. Normal left ventricular cavity size. Normal left ventricular wall thickness. Ejection fraction is visually estimated at 60 %. Tissue Doppler/Mitral Doppler indices are consistent with impaired relaxation (Stage I diastolic dysfunction). Right Ventricle: Normal right ventricular size. Normal right ventricular systolic function. Left Atrium: The left atrium is normal in size. Right Atrium: The right atrium is normal in size. Ventricular septum: Normal/intact ventricular septum. Mitral Valve: Mild mitral leaflet calcification. Mild mitral valve regurgitation. Aortic Valve: Normal appearance of the aortic valve. No significant aortic stenosis or insufficiency. Tricuspid Valve: Normal appearance of the tricuspid valve. There is mild to moderate tricuspid regurgitation. Pulmonic Valve: Normal pulmonic valve appearance. No evidence of pulmonic regurgitation. Pericardium: Normal pericardium with no significant pericardial effusion. Trivial pericardial effusion. Aorta: Normal aortic root. IVC: Normal size and normal respiratory collapse consistent with normal right atrial pressure. Pulmonary Artery: Normal pulmonary artery size. Conclusions: Normal left ventricular systolic function. Normal left ventricular cavity size. Normal left ventricular wall thickness. Ejection fraction is visually estimated at 60 %. Tissue Doppler/Mitral Doppler indices are consistent with impaired relaxation (Stage I diastolic dysfunction). Normal right ventricular size. Normal right ventricular systolic function. The left atrium is normal in size. The right atrium is normal in size. Mild mitral valve regurgitation. No significant aortic stenosis or insufficiency. There is mild to moderate tricuspid regurgitation. Normal pericardium with no significant pericardial effusion. Trivial pericardial effusion. Electronically Signed By: Evangelista Scanlon 2018-05-10 16:20:12 PDT
--- NOTE | 2018-05-11 12:28 | CONS ---
Assessment/Plan Assessment/Plan Hospital Course (Demo Recall) Septic as well as hemorrhagic shock Hypotension on IV pressor Acute blood loss anemia History of respiratory failure status post decannulation Preserved ejection fraction echocardiogram 05/10/2018 Paroxysmal atrial fibrillation, currently sinus rhythm Acute kidney injury -Titrate IV pressor to maintain SBP greater than 90 and/or map above 60 -IV fluids as per renal we will close monitor respiratory status -Hold all antihypertensives and nephrotoxic medications -Antibiotics as per infectious disease Consultation Date/Type/Reason Admit Date/Time May 06, 2018 at 17:38 Initial Consult Date 05/10/18 Type of Consult Cardiology Requesting Provider: ROLAND GIRON MD Date/Time of Note DATE: 05/11/18 TIME: 12:26 24 HR Interval Summary Free Text/Dictation Patient seen and examined. Remains somnolent Subjective hx not possible: pt critical Exam/Review of Systems Vital Signs Vitals Vital Signs Date Temp Pulse Resp B/P (MAP) Pulse Ox O2 O2 Flow FiO2 Time Delivery Rate 05/11/18 122 27 113/73 97 10:45 (86) 05/11/18 Nasal 3.0 10:00 Cannula 05/11/18 98.8 08:00 05/09/18 31 02:26 Intake and Output 05/10/18 05/10/18 05/11/18 1515:00 23:00 07:00 IntakeIntake Total 1442.27 ml 1353.15 ml 600.04 ml OutputOutput Total 260 ml 290 ml 292 ml BalanceBalance 1182.27 ml 1063.15 ml 308.04 ml Exam Exam No response to verbal stimuli, she does move when touched but not following commands or opening her eyes Head: normocephalic Respiratory: other (Coarse breath sounds bilaterally, scattered crackles) Cardiovascular: regular rate and rhythm (S1-S2 heard) Gastrointestinal: soft, non-tender, bowel sounds Extremities: edema Labs Result Diagram: 05/11/18 0430 05/11/18 0430 Results 24hrs Laboratory Tests Test 05/10/18 18:15 05/11/18 04:30 05/11/18 04:44 05/11/18 05:00 Hemoglobin 9.4 #L 8.9 L Hematocrit 29.0 #L 27.1 L White Blood 16.8 H Count Red Blood Count 2.69 #L Mean Corpuscular 100.7 Volume Mean Corpuscular 33.1 H Hemoglobin Mean Corpuscular 32.8 Hemoglobin Rachael nt Red Cell 16.5 H Distribution Width Platelet Count 252 Mean Platelet 9.1 Volume Immature 1.600 H Granulocytes % Neutrophils % Segmented 77 Neutrophils % (Manual) Band Neutrophils 8 H % (Manual) Lymphocytes % Lymphocytes % 6 L (Manual) Monocytes % Monocytes % 6 (Manual) Eosinophils % Eosinophils % 1 (Manual) Basophils % Myelocytes % 1 H (Manual) Plasma Cells % 1 (manual) Nucleated Red 0.0 Blood Cells % Immature 0.270 H Granulocytes # Neutrophils # Neutrophils # 13.2 H (Manual) Band Neutrophils 1.3 H # Lymphocytes 1.0 (Manual) Lymphocytes # Monocytes # Monocytes # 1.0 H (Manual) Eosinophils # Basophils # Myelocytes # 0.1 H Plasma Cells # 0.1 H (manual) Nucleated Red Blood Cells # Platelet NORMAL Estimate Polychromasia 1+ Poikilocytosis 2+ Anisocytosis 2+ Macrocytosis 2+ Sodium Level 140 Potassium Level 3.3 L Chloride Level 106 Carbon Dioxide 17 L Level Anion Gap 17 H Blood Urea 114 H Nitrogen Creatinine 2.15 H Est Glomerular Filtrat Rate mL/min Glucose Level 99 Calcium Level 7.6 L Phosphorus Level 3.2 Magnesium Level 1.6 L Lactic Acid 0.7 Level Blood Gas Blood arterial Specimen Source Arterial Blood 05/11/2018 5:00: Date Drawn 01 AM Arterial Blood 7.233 *L pH (Temp corrected) Arterial Blood 27.9 L pCO2 (Temp correct) Arterial Blood 72.2 L pO2 (Temp corrected) Arterial Blood 11.5 L HCO3 Arterial Blood -14.6 L Base Excess Arterial Blood 92.8 L Oxygen Saturatio n Steven Test ACCEPTAB Arterial Blood Right Radial Gas Puncture Site Arterial 1.2 Blood Carboxyhem oglobin Arterial Blood 0.1 Methemoglobin Blood Gas A-a O2 108.9 H Differential Oxyhemoglobin 91.6 L Percent Blood Gas 37.0 Temperature Blood Gas NASAL CANNULA Modality FiO2 30.0 Blood Gas SOHAN SABA Critical Value Read Back Blood Gas LOIDA Notified Whom Blood Gas 05/11/2018 5:21: Notified Time 50 AM Test 05/11/18 05:37 Lab Scanned BLOOD TRANSFUSI Report ON Medications Medications Current Medications IV Flush (NS 10 ml) 10 ml PRN IV ; Start 05/06/18 at 20:30 Ascorbic Acid (Vitamin C) 500 mg DAILY GTB Last administered on 05/09/18 08:36; Admin Dose 500 MG; Start 05/07/18 at 09:00 Albuterol/ Ipratropium (Duoneb) 3 ml Q2H RESP THERAPY PRN HHN SHORTNESS OF BREATH; Start 05/06/18 at 23:30 Albuterol/ Ipratropium (Duoneb) 3 ml Q6H RESP THERAPY HHN Last administered on 05/11/18 09:08; Admin Dose 3 ML; Start 05/07/18 at 02:00 Lorazepam (Ativan Intensol) 0.5 mg Q6H PRN PEG ANXIETY; Start 05/06/18 at 23:30 Quetiapine Fumarate (Seroquel) 300 mg HS GTB Last administered on 05/08/18 20:07; Admin Dose 300 MG; Start 05/07/18 at 21:00 Valproate Sodium (Depakene Liquid Cup) 100 mg QHS GTB Last administered on 05/08/18 20:07; Admin Dose 100 MG; Start 05/07/18 at 21:00 Zinc Sulfate (Zinc Sulfate) 220 mg DAILY GTB Last administered on 05/09/18 08:36; Admin Dose 220 MG; Start 05/07/18 at 09:00 Lansoprazole (Prevacid) 30 mg DAILY@06 GTB Last administered on 05/09/18 05:11; Admin Dose 30 MG; Start 05/07/18 at 06:00 Ondansetron HCl (Zofran Tab) 4 mg Q6H PRN GTB NAUSEA AND/OR VOMITING; Start 05/07/18 at 00:15 Multivitamins (Multivitamin) 30 ml DAILY GTB Last administered on 05/09/18 08:36; Admin Dose 30 ML; Start 05/07/18 at 09:00 Epoetin Zen (Epogen (Esrd)) 20,000 units Tu@1700 SC ; Start 05/12/18 at 17:00 Norepinephrine 250 ml @ 1.875 mls/ hr TITRATE IV Last administered on 05/08/18 13:33; Admin Dose 33.75 MLS/HR; Start 05/08/18 at 03:00 Citric Acid/ Sodium Citrate (Bicitra) 30 ml Q8 PO Last administered on 05/09/18 13:19; Admin Dose 30 ML; Start 05/09/18 at 08:00 Phenylephrine HCl 80 mg/Dextrose 250 ml @ 18.75 mls/ hr TITRATE IV Last administered on 05/10/18 13:30; Admin Dose 15 MLS/HR; Start 05/09/18 at 12:30 Miscellaneous Information (Pending Santyl Order For Wound Care) This patient goldman... PRN PRN XX WOUND CARE; Start 05/09/18 at 17:00 Linezolid 300 ml @ 300 mls/hr Q12 IVPB Last administered on 05/11/18 08:24; Admin Dose 300 MLS/HR; Start 05/09/18 at 21:00; Stop 05/12/18 at 21:00 Sodium Bicarbonate 75 meq/Sodium Chloride 1,075 ml @ 75 mls/hr [id number] IV Last administered on 05/11/18 01:46; Admin Dose 75 MLS/HR; Start 05/10/18 at 10:00 Meropenem/Sodium Chloride 50 ml @ 100 mls/hr Q12 IVPB Last administered on 05/11/18 08:24; Admin Dose 100 MLS/HR; Start 05/10/18 at 18:00 Evangelista Scanlon DO May 11, 2018 12:28
[2018-05-11] MEDS: PHENYLephrine 80 MG in DEXTROSE 5% 242 ML IV SCH (12:57)
--- NOTE | 2018-05-11 17:12 | PN ---
Date/Time of Note Date/Time of Note DATE: 05/11/18 TIME: 17:03 Assessment/Plan VTE Prophylaxis Risk score (from [facility] [place]0 risk: 13 SCD applied (from [facility] [place]): Yes Pharmacological prophylaxis: NA/contraindicated Pharm contraindication: bleeding Lines/Catheters [facility]ter [facility] (from [facility]): PICC Line Central line still needed: Yes Urinary Cath still in place: Yes Reason Cath still needed: urinary retention Assessment/Plan Hospital Course Patient is lethargic, slightly tachypneic and tachycardic, on Earnest-Synephrine drip for hemodynamic support. Patient with G-tube malfunction, will be replaced by GI. Assessment/Plan -Septic shock secondary to urinary tract infection, anterior neck soft tissue infection, and C. difficile colitis. Continue pressors for hemodynamic support, IV fluids, antibiotics per ID. Dr. Black is following in infection disease consultation. -Acute kidney injury on chronic kidney disease. Dr. Mckeon is following in nephrology consultation. -Metabolic acidosis -Acute diastolic congestive heart failure. Dr. Scanlon is following in cardiology consultation. -Paroxysmal atrial fibrillation, remains sinus rhythm -COPD -Dysphagia with PEG. -Obesity -Hx of PVD with ischemic 3 rd toe of the right foot Critical care time spent is 30 minutes. Further recommendations based on clinical course. Plan of care discussed with Dr. Eisenberg. Result Diagram: 05/11/18 0430 05/11/18 0430 Results 24hrs Laboratory Tests Test 05/10/18 18:15 05/11/18 04:30 05/11/18 04:44 05/11/18 05:00 Hemoglobin 9.4 #L 8.9 L Hematocrit 29.0 #L 27.1 L White Blood 16.8 H Count Red Blood Count 2.69 #L Mean Corpuscular 100.7 Volume Mean Corpuscular 33.1 H Hemoglobin Mean Corpuscular 32.8 Hemoglobin Rachael nt Red Cell 16.5 H Distribution Width Platelet Count 252 Mean Platelet 9.1 Volume Immature 1.600 H Granulocytes % Neutrophils % Segmented 77 Neutrophils % (Manual) Band Neutrophils 8 H % (Manual) Lymphocytes % Lymphocytes % 6 L (Manual) Monocytes % Monocytes % 6 (Manual) Eosinophils % Eosinophils % 1 (Manual) Basophils % Myelocytes % 1 H (Manual) Plasma Cells % 1 (manual) Nucleated Red 0.0 Blood Cells % Immature 0.270 H Granulocytes # Neutrophils # Neutrophils # 13.2 H (Manual) Band Neutrophils 1.3 H # Lymphocytes 1.0 (Manual) Lymphocytes # Monocytes # Monocytes # 1.0 H (Manual) Eosinophils # Basophils # Myelocytes # 0.1 H Plasma Cells # 0.1 H (manual) Nucleated Red Blood Cells # Platelet NORMAL Estimate Polychromasia 1+ Poikilocytosis 2+ Anisocytosis 2+ Macrocytosis 2+ Sodium Level 140 Potassium Level 3.3 L Chloride Level 106 Carbon Dioxide 17 L Level Anion Gap 17 H Blood Urea 114 H Nitrogen Creatinine 2.15 H Est Glomerular Filtrat Rate mL/min Glucose Level 99 Calcium Level 7.6 L Phosphorus Level 3.2 Magnesium Level 1.6 L Lactic Acid 0.7 Level Blood Gas Blood arterial Specimen Source Arterial Blood 05/11/2018 5:00: Date Drawn 01 AM Arterial Blood 7.233 *L pH (Temp corrected) Arterial Blood 27.9 L pCO2 (Temp correct) Arterial Blood 72.2 L pO2 (Temp corrected) Arterial Blood 11.5 L HCO3 Arterial Blood -14.6 L Base Excess Arterial Blood 92.8 L Oxygen Saturatio n Steven Test ACCEPTAB Arterial Blood Right Radial Gas Puncture Site Arterial 1.2 Blood Carboxyhem oglobin Arterial Blood 0.1 Methemoglobin Blood Gas A-a O2 108.9 H Differential Oxyhemoglobin 91.6 L Percent Blood Gas 37.0 Temperature Blood Gas NASAL CANNULA Modality FiO2 30.0 Blood Gas SOHAN SABA Critical Value Read Back Blood Gas MA Notified Whom Blood Gas 05/11/2018 5:21: Notified Time 50 AM Test 05/11/18 05:37 Lab Scanned BLOOD TRANSFUSI Report ON Exam/Review of Systems Exam Vitals Vital Signs Date Temp Pulse Resp B/P (MAP) Pulse Ox O2 O2 Flow FiO2 Time Delivery Rate 05/11/18 105 14 101/41 95 15:30 (61) 05/11/18 Nasal 3.0 15:00 Cannula 05/11/18 98.9 12:00 05/09/18 31 02:26 Intake and Output 05/10/18 05/10/18 05/11/18 1515:00 23:00 07:00 IntakeIntake Total 1442.27 ml 1353.15 ml 600.04 ml OutputOutput Total 260 ml 290 ml 292 ml BalanceBalance 1182.27 ml 1063.15 ml 308.04 ml Constitutional: frail Head: normocephalic Neck: supple Respiratory: diminished breath sounds Cardiovascular: regular rate and rhythm Gastrointestinal: soft, tender, other (G-tube) Musculoskeletal: nl extremities to inspection Extremities: normal pulses Neurological: lethargic Results Results 24hrs Laboratory Tests Test 05/10/18 18:15 05/11/18 04:30 05/11/18 04:44 05/11/18 05:00 Hemoglobin 9.4 #L 8.9 L Hematocrit 29.0 #L 27.1 L White Blood 16.8 H Count Red Blood Count 2.69 #L Mean Corpuscular 100.7 Volume Mean Corpuscular 33.1 H Hemoglobin Mean Corpuscular 32.8 Hemoglobin Rachael nt Red Cell 16.5 H Distribution Width Platelet Count 252 Mean Platelet 9.1 Volume Immature 1.600 H Granulocytes % Neutrophils % Segmented 77 Neutrophils % (Manual) Band Neutrophils 8 H % (Manual) Lymphocytes % Lymphocytes % 6 L (Manual) Monocytes % Monocytes % 6 (Manual) Eosinophils % Eosinophils % 1 (Manual) Basophils % Myelocytes % 1 H (Manual) Plasma Cells % 1 (manual) Nucleated Red 0.0 Blood Cells % Immature 0.270 H Granulocytes # Neutrophils # Neutrophils # 13.2 H (Manual) Band Neutrophils 1.3 H # Lymphocytes 1.0 (Manual) Lymphocytes # Monocytes # Monocytes # 1.0 H (Manual) Eosinophils # Basophils # Myelocytes # 0.1 H Plasma Cells # 0.1 H (manual) Nucleated Red Blood Cells # Platelet NORMAL Estimate Polychromasia 1+ Poikilocytosis 2+ Anisocytosis 2+ Macrocytosis 2+ Sodium Level 140 Potassium Level 3.3 L Chloride Level 106 Carbon Dioxide 17 L Level Anion Gap 17 H Blood Urea 114 H Nitrogen Creatinine 2.15 H Est Glomerular Filtrat Rate mL/min Glucose Level 99 Calcium Level 7.6 L Phosphorus Level 3.2 Magnesium Level 1.6 L Lactic Acid 0.7 Level Blood Gas Blood arterial Specimen Source Arterial Blood 05/11/2018 5:00: Date Drawn 01 AM Arterial Blood 7.233 *L pH (Temp corrected) Arterial Blood 27.9 L pCO2 (Temp correct) Arterial Blood 72.2 L pO2 (Temp corrected) Arterial Blood 11.5 L HCO3 Arterial Blood -14.6 L Base Excess Arterial Blood 92.8 L Oxygen Saturatio n Steven Test ACCEPTAB Arterial Blood Right Radial Gas Puncture Site Arterial 1.2 Blood Carboxyhem oglobin Arterial Blood 0.1 Methemoglobin Blood Gas A-a O2 108.9 H Differential Oxyhemoglobin 91.6 L Percent Blood Gas 37.0 Temperature Blood Gas NASAL CANNULA Modality FiO2 30.0 Blood Gas SOHAN SABA Critical Value Read Back Blood Gas MA Notified Whom Blood Gas 05/11/2018 5:21: Notified Time 50 AM Test 05/11/18 05:37 Lab Scanned BLOOD TRANSFUSI Report ON Medications Medication Current Medications IV Flush (NS 10 ml) 10 ml PRN IV ; Start 05/06/18 at 20:30 Ascorbic Acid (Vitamin C) 500 mg DAILY GTB Last administered on 05/09/18 08:36; Admin Dose 500 MG; Start 05/07/18 at 09:00 Albuterol/ Ipratropium (Duoneb) 3 ml Q2H RESP THERAPY PRN HHN SHORTNESS OF BREATH; Start 05/06/18 at 23:30 Albuterol/ Ipratropium (Duoneb) 3 ml Q6H RESP THERAPY HHN Last administered on 05/11/18 09:08; Admin Dose 3 ML; Start 05/07/18 at 02:00 Lorazepam (Ativan Intensol) 0.5 mg Q6H PRN PEG ANXIETY; Start 05/06/18 at 23:30 Quetiapine Fumarate (Seroquel) 300 mg HS GTB Last administered on 05/08/18at 20:07; Admin Dose 300 MG; Start 05/07/18 at 21:00 Valproate Sodium (Depakene Liquid Cup) 100 mg QHS GTB Last administered on 05/08/18 20:07; Admin Dose 100 MG; Start 05/07/18 at 21:00 Zinc Sulfate (Zinc Sulfate) 220 mg DAILY GTB Last administered on 05/09/18 08:36; Admin Dose 220 MG; Start 05/07/18 at 09:00 Lansoprazole (Prevacid) 30 mg DAILY@06 GTB Last administered on 05/09/18at 05:11; Admin Dose 30 MG; Start 05/07/18 at 06:00 Ondansetron HCl (Zofran Tab) 4 mg Q6H PRN GTB NAUSEA AND/OR VOMITING; Start 05/07/18 at 00:15 Multivitamins (Multivitamin) 30 ml DAILY GTB Last administered on 05/09/18 08:36; Admin Dose 30 ML; Start 05/07/18 at 09:00 Epoetin Zen (Epogen (Esrd)) 20,000 units Tu@1700 SC ; Start 05/12/18 at 17:00 Norepinephrine 250 ml @ 1.875 mls/ hr TITRATE IV Last administered on 05/08/18 13:33; Admin Dose 33.75 MLS/HR; Start 05/08/18 at 03:00 Citric Acid/ Sodium Citrate (Bicitra) 30 ml Q8 PO Last administered on 05/09/18 13:19; Admin Dose 30 ML; Start 05/09/18 at 08:00 Phenylephrine HCl 80 mg/Dextrose 250 ml @ 18.75 mls/ hr TITRATE IV Last administered on 05/11/18 12:57; Admin Dose 13.13 MLS/HR; Start 05/09/18 at 12:30 Miscellaneous Information (Pending [facility] Order For Wound Care) This patient goldman... PRN PRN XX WOUND CARE; Start 05/09/18 at 17:00 Linezolid 300 ml @ 300 mls/hr Q12 IVPB Last administered on 05/11/18 08:24; Admin Dose 300 MLS/HR; Start 05/09/18 at 21:00; Stop 05/12/18 at 21:00 Sodium Bicarbonate 75 meq/Sodium Chloride 1,075 ml @ 75 mls/hr [id number] IV Last administered on 05/11/18 14:44; Admin Dose 75 MLS/HR; Start 05/10/18 at 10:00 Meropenem/Sodium Chloride 50 ml @ 100 mls/hr Q12 IVPB Last administered on 05/11/18 08:24; Admin Dose 100 MLS/HR; Start 05/10/18 at 18:00 GRISELDA DENNIS May 11, 2018 17:12
--- NOTE | 2018-05-11 18:15 | CONS ---
DATE OF ADMISSION: 05/06/2018 DATE OF CONSULTATION: TYPE OF CONSULTATION: Gastroenterology. HISTORY OF PRESENT ILLNESS: The patient is a 73-year-old female with a history of COPD, was brought to the emergency room for change in mental status. In the ER, the patient was found to have hyponatr emia and dehydration with BUN of 172 and creatinine of 3. The patient was tachycardic and hypotensiv e. In the ER, fluid challenge was done and subsequently admitted to intensive care unit for further management. The patient was seen by infectious disease specialist and after appropriate cultures, wa s started on antibiotic. GI consult was called in for malfunctioning of the G-tube. PAST MEDICAL HISTORY: Lower extremity large hematoma, underwent excisional debridement and evacuatio n of the hematoma. The patient also had small-bowel obstruction requiring lysis of adhesion and rosa tment of small abscess there. She also had a right toe dry gangrene and paroxysmal atrial fibrillati on. The patient has history of trach and PEG. SOCIAL HISTORY: Ex-smoker. ALLERGIES: SHELLFISH. FAMILY HISTORY: Nothing contributory. REVIEW OF SYSTEMS: Unable to do it. PHYSICAL EXAMINATION VITAL SIGNS: Stable. Heart rate is 105, blood pressure is 101/41. This is on 3 liters nasal cannul a and oxygen is 95%. CARDIOVASCULAR: No murmur, gallop or click. LUNGS: Air entry diminished at the base. No wheeze. ABDOMEN: Soft, mildly obese. G-tube is distorted, the whole and there was a leakage from the G-tube site. EXTREMITIES: No edema. CENTRAL NERVOUS SYSTEM: The patient is lethargic. LABORATORY DATA: WBC 16.8, hematocrit is 27, platelet count is good 252. BUN is 114, creatinine is 2.15. INR is 1.1. C. difficile toxin was reported positive. Her influenza A and B both were negati ve. Wound culture revealed Klebsiella pneumoniae. Urine culture revealed Klebsiella pneumoniae also . MEDICATIONS: All reviewed. The patient is on: 1. Meropenem. 2. Norepinephrine. 3. Seroquel. IMPRESSION: 1. Malfunctioning gastrostomy tube. 2. Renal failure. 3. Sepsis. 4. Hyponatremia. 5. Chronic obstructive pulmonary disease. 6. Bipolar. 7. Paroxysmal atrial fibrillation. 8. Critical care myopathy. 9. Anemia of chronic disease. 10. Diastolic failure. PLAN: At this point, is to continue present care. We will change the G-tube bedside. Dictated By: QUINTEN EPPS/NTS Conf#: [id number] DID#: [id number] CC: ROLAND IGRON MD;*EndCC*
[2018-05-11] MEDS ORDERED: VANCOMYCIN HCL 250 MG/5ML POSYG PO SCH (18:30)
--- NOTE | 2018-05-11 19:15 | CONS ---
Assessment/Plan Assessment/Plan Hospital Course (Demo Recall) sepsis, SIRS, pulmonary - septic shock due to complicated UTI and C diff colitis - chronic hypoxic respiratory failure - on low flow oxygen - possible colonization of the anterior neck wound with ESBL+kleb, MRSA, GBS, corynebacteria on 05/06/2018 - h/o recannulation prior to admission - h/o tracheostomy on 06/11/2017 - h/o SIRS from UGIB; Pt's WBC level improved with hydration and without anti biotic, improved - h/o pneumonia vs. colonization of the airway by pseudomonas and ESBL+klebsiella - h/o possible, recurrent HCAP due to pseudomonas and ESBL+klebsiella - h/o recurrent HCAP due to MRSA and Enterobacter (culture of tracheal aspirate on 07/16/2017 that was collected at [facility]) . Pt took vancomycin and ceftazidime - h/o acute respiratory distress post-thoracentesis, resolved - h/o thoracentesis on 07/18/2017, transudative (protein <2, LDH 279) - h/o bleeding from the trach site which might precipitated another episode of aspiration or pneumonitis - h/o septic shock due to pneumonia, ARDS, bacteremia, fungemia - h/o pneumonia with ARDS - h/o smoking - COPD - ILD Cardiac - PAF, currently sinus tachycardia GI - C diff colitis, diagnosed on 05/11/2018 - h/o intermittent diarrhea, Pt had multiple negative C. diff tests at [facility] at [facility] in the past - dysphagia - h/o PEG placement 06/13/2018 - protein calorie malnutrition - h/o coffee ground emesis/UGIB 12/23/2017 due to deep ulceration of distal esophagus and gastritis on EGD 12/26/2017. No e/o H. pylori - h/o possible appendicitis on CT on 11/22/2017, Pt's RLQ is not TTP. Pt took ertapenem (11/24/2017-12/01/2017) - h/o extensive adhesions lower abdominal and pelvis between small bowel to each other and to colon and to abdominal wall, anterior pelvic wall chronic abscess secondary to probably an old perforated diverticulitis, torsion of small bowel around these dense adhesion causing multiple obstructive points - h/o laparoscopic exploration and extensive lysis of adhesions and drainage of anterior pelvic wall abscess 09/16/2017. Cultures were negative, no e/o malignancy. Pt took pip/tazo (09/16/2017-09/26/2017) - h/o partial obstruction mid jejunum in L anterior central pelvis with suggestion of a 3 cm soft tissue mass on CT 08/28/2017 - h/o internal stomal deep ulcer behind the internal bumper, gastritis and esophagitis, Rodriguez's cannot be ruled out, per EGD with biopsy 07/23/2017 - h/o GIB s/p flex sig showed polyp; stool OB negative on 06/29/17 - h/o stool OB positive - h/o SBO and ileus due to pain meds - h/o EGD and exchange of PEG on 09/01/2017 - h/o mildly elevated CEA renal/ - recurrent NATHAN on CKD - UTI d/t CRE kleb and GBS, the latter may be a colonizer on 05/06/2018; Pt took IV colistin (05/08/2018-05/10/18). JADE Villareal requested that Claudia at [facility] his strain of CRE in urine to be tested against colistin, Avycaz, Zerbaxa, and Vabomere on 05/07/2018 - Hyponatremia - Hyperkalemia, now hypokalemia - Metabolic acidosis - adrenal insufficiency - h/o vaginal bleed - h/o colonization of urinary tract by ESBL+klebsiella, VRE - h/o recurrent, symptomatic UTI due to carbapenem-resistant kleb (MDR strain) per urine culture 10/04/17, 10/09/17, 10/21/2017, P took colistin (10/09/2017- 10/15/2017), fosfomycin for carbapenemase-producing klebsiella and VRE on 10/25/2017 and 10/28/2017 - h/o funguria - h/o urinary retention fungemia, bacteremia - h/o bacteremia due to coag negative Staph, probable contaminant as her WBC level improved initially without antibiotic - 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 improved. Probable manifestation of endocarditis. Pt declined MRI on 08/06/2017 - h/o infection of R toes due to pseudomonas. coagulase negative Staph likely a colonizer. resolved - h/o intertrigo of the groin, resolved with nystatin powder - h/o scabies, locally crusted lesion over L scapula, s/p permethrin cream and pGT ivermectin on 08/11/2017, 08/12/2017, 08/19/2017. Repeat skin scraping on 08/21/2017 was negative for scabies psych, neuro - acute toxic metabolic encephalopathy - decreased hearing b/l - h/o critical illness polyneuropathy - anxiety/depression, bipolar d/o, seen by Psychiatry in the past - chronic pain syndrome - medical non-compliance: she would refuse her medications, treatment and straight catheterization at times hematological, vascular - chronic anemia requiring blood transfusion intermittently - Macrocytic anemia - 3.1 cm AAA on imaging - PVD recommendations: - in light of C diff colitis, I recommend d/c meropenem and linezolid - continue pGT vancomycin (05/11/2018-), add IV metronidazole (05/11/2018) for C diff colitis management d/w Pt's JAYANT Abraham the critical care time I took to care for this Pt today was from 1814 to 1844 Consultation Date/Type/Reason Admit Date/Time May 06, 2018 at 17:38 Initial Consult Date 05/10/18 Type of Consult ID Requesting Provider: ROLAND GIRON MD Date/Time of Note DATE: 05/11/18 TIME: 18:56 24 HR Interval Summary Subjective hx not possible: pt non-verbal, pt critical, pt critical status Exam/Review of Systems Exam Vitals Vital Signs Date Temp Pulse Resp B/P (MAP) Pulse Ox O2 O2 Flow FiO2 Time Delivery Rate 05/11/18 109 16:00 05/11/18 14 101/41 95 15:30 (61) 05/11/18 Nasal 3.0 15:00 Cannula 05/11/18 98.9 12:00 05/09/18 31 02:26 Intake and Output 05/10/18 05/10/18 05/11/18 1515:00 23:00 07:00 IntakeIntake Total 1442.27 ml 1353.15 ml 600.04 ml OutputOutput Total 260 ml 290 ml 292 ml BalanceBalance 1182.27 ml 1063.15 ml 308.04 ml Constitutional: non-verbal, frail Psych: confusion Head: normocephalic, atraumatic Eyes: nl conjunctiva, nl lids ENMT: nl external ears & nose, other (dry mucus membranes) Respiratory: congested cough, crackles/rales Cardiovascular: other (tachycardic and regular) Gastrointestinal: soft, distended, other (GT, rectal tube); No tender Genitourinary - Female: other (FC) Musculoskeletal: nl extremities to inspection Extremities: edema Neurological: unresponsive Skin: rash or lesions (DTI of the back, scabs, erythema of b/l feet) Results Result Diagram: 05/11/18 0430 05/11/18 0430 Results 24hrs Laboratory Tests Test 05/11/18 04:30 05/11/18 04:44 05/11/18 05:00 05/11/18 05:37 White Blood 16.8 H Count Red Blood Count 2.69 #L Hemoglobin 8.9 L Hematocrit 27.1 L Mean Corpuscular 100.7 Volume Mean Corpuscular 33.1 H Hemoglobin Mean Corpuscular 32.8 Hemoglobin Rachael nt Red Cell 16.5 H Distribution Width Platelet Count 252 Mean Platelet 9.1 Volume Immature 1.600 H Granulocytes % Neutrophils % Segmented 77 Neutrophils % (Manual) Band Neutrophils 8 H % (Manual) Lymphocytes % Lymphocytes % 6 L (Manual) Monocytes % Monocytes % 6 (Manual) Eosinophils % Eosinophils % 1 (Manual) Basophils % Myelocytes % 1 H (Manual) Plasma Cells % 1 (manual) Nucleated Red 0.0 Blood Cells % Immature 0.270 H Granulocytes # Neutrophils # Neutrophils # 13.2 H (Manual) Band Neutrophils 1.3 H # Lymphocytes 1.0 (Manual) Lymphocytes # Monocytes # Monocytes # 1.0 H (Manual) Eosinophils # Basophils # Myelocytes # 0.1 H Plasma Cells # 0.1 H (manual) Nucleated Red Blood Cells # Platelet NORMAL Estimate Polychromasia 1+ Poikilocytosis 2+ Anisocytosis 2+ Macrocytosis 2+ Sodium Level 140 Potassium Level 3.3 L Chloride Level 106 Carbon Dioxide 17 L Level Anion Gap 17 H Blood Urea 114 H Nitrogen Creatinine 2.15 H Est Glomerular Filtrat Rate mL/min Glucose Level 99 Calcium Level 7.6 L Phosphorus Level 3.2 Magnesium Level 1.6 L Lactic Acid 0.7 Level Blood Gas Blood arterial Specimen Source Arterial Blood 05/11/2018 5:00: Date Drawn 01 AM Arterial Blood 7.233 *L pH (Temp corrected) Arterial Blood 27.9 L pCO2 (Temp correct) Arterial Blood 72.2 L pO2 (Temp corrected) Arterial Blood 11.5 L HCO3 Arterial Blood -14.6 L Base Excess Arterial Blood 92.8 L Oxygen Saturatio n Steven Test ACCEPTAB Arterial Blood Right Radial Gas Puncture Site Arterial 1.2 Blood Carboxyhem oglobin Arterial Blood 0.1 Methemoglobin Blood Gas A-a O2 108.9 H Differential Oxyhemoglobin 91.6 L Percent Blood Gas 37.0 Temperature Blood Gas NASAL CANNULA Modality FiO2 30.0 Blood Gas SOHAN SABA Critical Value Read Back Blood Gas MA Notified Whom Blood Gas 05/11/2018 5:21: Notified Time 50 AM Lab Scanned BLOOD TRANSFUSI Report ON Medications Medication Current Medications IV Flush (NS 10 ml) 10 ml PRN IV ; Start 05/06/18 at 20:30 Ascorbic Acid (Vitamin C) 500 mg DAILY GTB Last administered on 05/09/18at 08:36; Admin Dose 500 MG; Start 05/07/18 at 09:00 Albuterol/ Ipratropium (Duoneb) 3 ml Q2H RESP THERAPY PRN HHN SHORTNESS OF BREATH; Start 05/06/18 at 23:30 Albuterol/ Ipratropium (Duoneb) 3 ml Q6H RESP THERAPY HHN Last administered on 05/11/18at 09:08; Admin Dose 3 ML; Start 05/07/18 at 02:00 Lorazepam (Ativan Intensol) 0.5 mg Q6H PRN PEG ANXIETY; Start 05/06/18 at 23:30 Quetiapine Fumarate (Seroquel) 300 mg HS GTB Last administered on 05/08/18 20:07; Admin Dose 300 MG; Start 05/07/18 at 21:00 Valproate Sodium (Depakene Liquid Cup) 100 mg QHS GTB Last administered on 05/08/18 20:07; Admin Dose 100 MG; Start 05/07/18 at 21:00 Zinc Sulfate (Zinc Sulfate) 220 mg DAILY GTB Last administered on 05/09/18 08:36; Admin Dose 220 MG; Start 05/07/18 at 09:00 Lansoprazole (Prevacid) 30 mg DAILY@06 GTB Last administered on 05/09/18 05:11; Admin Dose 30 MG; Start 05/07/18 at 06:00 Ondansetron HCl (Zofran Tab) 4 mg Q6H PRN GTB NAUSEA AND/OR VOMITING; Start 05/07/18 at 00:15 Multivitamins (Multivitamin) 30 ml DAILY GTB Last administered on 05/09/18 08:36; Admin Dose 30 ML; Start 05/07/18 at 09:00 Epoetin Zen (Epogen (Esrd)) 20,000 units Tu@1700 SC ; Start 05/12/18 at 17:00 Norepinephrine 250 ml @ 1.875 mls/ hr TITRATE IV Last administered on 05/08/18 13:33; Admin Dose 33.75 MLS/HR; Start 05/08/18 at 03:00 Citric Acid/ Sodium Citrate (Bicitra) 30 ml Q8 PO Last administered on 05/09/18 13:19; Admin Dose 30 ML; Start 05/09/18 at 08:00 Phenylephrine HCl 80 mg/Dextrose 250 ml @ 18.75 mls/ hr TITRATE IV Last administered on 05/11/18 12:57; Admin Dose 13.13 MLS/HR; Start 05/09/18 at 12:30 [facility] This patient goldman... PRN PRN XX WOUND CARE; Start 05/09/18 at 17:00 Linezolid 300 ml @ 300 mls/hr Q12 IVPB Last administered on 05/11/18 08:24; Admin Dose 300 MLS/HR; Start 05/09/18 at 21:00; Stop 05/12/18 at 21:00 Sodium Bicarbonate 75 meq/Sodium Chloride 1,075 ml @ 75 mls/hr [id number] IV Last administered on 05/11/18at 14:44; Admin Dose 75 MLS/HR; Start 05/10/18 at 10:00 Meropenem/Sodium Chloride 50 ml @ 100 mls/hr Q12 IVPB Last administered on 05/11/18at 08:24; Admin Dose 100 MLS/HR; Start 05/10/18 at 18:00 Vancomycin HCl (Vancomycin Oral Syringe) 125 mg Q6 PO Last administered on 05/11/18at 18:45; Admin Dose 125 MG; Start 05/11/18 at 18:30 CELESTINE MURPHY M.D. May 11, 2018 19:15
[2018-05-11] MEDS: VALPROIC ACID LIQUID CUP 250 MG/5 ML CUP GTB SCH (21:11)
[2018-05-11] MEDS: QUETIAPINE 100 MG TAB GTB SCH (21:12)
[2018-05-11] MEDS: metroNIDAZOLE 500 MG/NS (PMX) 100 ML IVPB SCH (21:12)
[2018-05-11] MEDS: VANCOMYCIN HCL 250 MG/5ML POSYG PO SCH (23:36)
[2018-05-12] VITALS (95 sets, daily range): BP systolic 69–137; BP diastolic 33–69; PULSE 96–122; RESP 14–78
[2018-05-12] MEDS: ALBUTEROL/IPRATROPIUM (NEB) 3 ML AMP HHN SCH ×3 (01:29→14:00)
[2018-05-12] MEDS: SODIUM BICARBONATE (IV ADD) 75 MEQ in SOD CHLORIDE 0.45% 1,000 ML IV SCH (04:45)
[2018-05-12] MEDS: PHENYLephrine 80 MG in DEXTROSE 5% 242 ML IV SCH ×3 (04:55→21:08)
[2018-05-12] MEDS: VANCOMYCIN HCL 250 MG/5ML POSYG PO SCH ×4 (05:01→23:35)
[2018-05-12] MEDS: metroNIDAZOLE 500 MG/NS (PMX) 100 ML IVPB SCH ×3 (05:01→22:10)
[2018-05-12] MEDS: LANSOPRAZOLE 30 MG CAP GTB SCH (05:01)
[2018-05-12] MEDS: CITRIC ACID/NA CITRATE 30 ML CUP PO SCH ×3 (05:07→22:10)
--- NOTE | 2018-05-12 08:20 | CONS ---
Assessment/Plan Assessment/Plan Hospital Course (Demo Recall) 73 yo female Interval hx: Tolerating tube feeds at 30cc/hr. G tube site is slightly reddened around opening but otherwise benign abd. No signs of GI bleeding per RN. On phenylephrine gtt 1. Malfunctioning gastrostomy tube. 2. Renal failure. 3. Sepsis. 4. Hyponatremia. 5. Chronic obstructive pulmonary disease. 6. Bipolar. 7. Paroxysmal atrial fibrillation. 8. Critical care myopathy. 9. Anemia of chronic disease. 10. Diastolic failure. 11. Elevated alk phos with h/o hepatic venous congestion seen on abd CT in 2018 PLAN: Continue supportive ICU care. US of abd. Monitor for GI bleeding. Pt examined and plan of care discussed with Dr Carolina Consultation Date/Type/Reason Admit Date/Time May 06, 2018 at 17:38 Initial Consult Date 05/10/18 Requesting Provider: ROLAND GIRON MD Date/Time of Note DATE: 05/12/18 TIME: 08:16 Exam/Review of Systems Exam Vitals Vital Signs Date Temp Pulse Resp B/P (MAP) Pulse Ox O2 O2 Flow FiO2 Time Delivery Rate 05/12/18 117 27 78/41 (53) 06:00 05/12/18 98.2 04:00 05/12/18 91 03:00 05/12/18 4.0 33 01:45 05/12/18 Nasal 00:45 Cannula Intake and Output 05/11/18 05/11/18 05/12/18 1515:00 23:00 07:00 IntakeIntake Total 1210.76 ml 810.65 ml 815.63 ml OutputOutput Total 230 ml 230 ml 240 ml BalanceBalance 980.76 ml 580.65 ml 575.63 ml Results Result Diagram: 05/12/18 0430 05/12/18 0430 Results 24hrs Laboratory Tests Test 05/12/18 04:30 05/12/18 05:00 White Blood Count 16.4 H Red Blood Count 2.49 L Hemoglobin 8.4 L Hematocrit 26.1 L Mean Corpuscular Volume 104.8 H Mean Corpuscular Hemoglobin 33.7 H Mean Corpuscular Hemoglobin Concent 32.2 Red Cell Distribution Width 17.3 H Platelet Count 254 Mean Platelet Volume 9.2 Immature Granulocytes % 1.800 H Neutrophils % 90.6 H Lymphocytes % 3.8 L Monocytes % 1.5 Eosinophils % 2.1 Basophils % 0.2 Nucleated Red Blood Cells % 0.0 Immature Granulocytes # 0.300 H Neutrophils # 14.8 H Lymphocytes # 0.6 L Monocytes # 0.3 Eosinophils # 0.3 Basophils # 0.0 Nucleated Red Blood Cells # 0.0 Sodium Level 137 Potassium Level 4.3 Chloride Level 106 Carbon Dioxide Level 13 L Anion Gap 18 H Blood Urea Nitrogen 118 H Creatinine 2.44 H Est Glomerular Filtrat Rate mL/min Glucose Level 239 #H Calcium Level 8.2 L Phosphorus Level 3.8 Magnesium Level 2.0 Valproic Acid (Depakene) Level < 10 L Blood Gas Specimen Source Blood arterial Arterial Blood Date Drawn 05/12/2018 5:10:43 AM Arterial Blood pH (Temp corrected) 7.273 *L Arterial Blood pCO2 (Temp correct) 34.3 L Arterial Blood pO2 (Temp corrected) 72.6 L Arterial Blood HCO3 15.5 L Arterial Blood Base Excess -10.4 L Arterial Blood Oxygen Saturation 93.1 L Steven Test ACCEPTAB Arterial Blood Gas Puncture Site Right Radial Arterial Blood Carboxyhemoglobin 1.2 Arterial Blood Methemoglobin 0.3 Blood Gas A-a O2 Differential 122.6 H Oxyhemoglobin Percent 91.7 L Blood Gas Temperature 37.0 Blood Gas Actual Respiration Rate 24 Blood Gas Modality NASAL CANNULA FiO2 33.0 Blood Gas Critical Value Read Back A VENKAT RN Blood Gas Notified Whom Blood Gas Notified Time 05/12/2018 5:20:48 AM Medications Medication Current Medications IV Flush (NS 10 ml) 10 ml PRN IV ; Start 05/06/18 at 20:30 Ascorbic Acid (Vitamin C) 500 mg DAILY GTB Last administered on 05/09/18at 08:36; Admin Dose 500 MG; Start 05/07/18 at 09:00 Albuterol/ Ipratropium (Duoneb) 3 ml Q2H RESP THERAPY PRN HHN SHORTNESS OF BREATH; Start 05/06/18 at 23:30 Albuterol/ Ipratropium (Duoneb) 3 ml Q6H RESP THERAPY HHN Last administered on 05/12/18at 01:29; Admin Dose 3 ML; Start 05/07/18 at 02:00 Lorazepam (Ativan Intensol) 0.5 mg Q6H PRN PEG ANXIETY; Start 05/06/18 at 23:30 Quetiapine Fumarate (Seroquel) 300 mg HS GTB Last administered on 05/11/18 21:12; Admin Dose 300 MG; Start 05/07/18 at 21:00 Valproate Sodium (Depakene Liquid Cup) 100 mg QHS GTB Last administered on 05/11/18 21:11; Admin Dose 100 MG; Start 05/07/18 at 21:00 Zinc Sulfate (Zinc Sulfate) 220 mg DAILY GTB Last administered on 05/09/18at 08:36; Admin Dose 220 MG; Start 05/07/18 at 09:00 Lansoprazole (Prevacid) 30 mg DAILY@06 GTB Last administered on 05/12/18 05:01 ; Admin Dose 30 MG; Start 05/07/18 at 06:00 Ondansetron HCl (Zofran Tab) 4 mg Q6H PRN GTB NAUSEA AND/OR VOMITING; Start 05/07/18 at 00:15 Multivitamins (Multivitamin) 30 ml DAILY GTB Last administered on 05/09/18at 08:36; Admin Dose 30 ML; Start 05/07/18 at 09:00 Epoetin Zen (Epogen (Esrd)) 20,000 units Tu@1700 SC ; Start 05/12/18 at 17:00 Norepinephrine 250 ml @ 1.875 mls/ hr TITRATE IV Last administered on 05/08/18at 13:33; Admin Dose 33.75 MLS/HR; Start 05/08/18 at 03:00 Citric Acid/ Sodium Citrate (Bicitra) 30 ml Q8 PO Last administered on 05/12/18at 05:07; Admin Dose 30 ML; Start 05/09/18 at 08:00 Phenylephrine HCl 80 mg/Dextrose 250 ml @ 18.75 mls/ hr TITRATE IV Last administered on 05/12/18 04:55; Admin Dose 24.38 MLS/HR; Start 05/09/18 at 12:30 [facility] This patient goldman... PRN PRN XX WOUND CARE; Start 05/09/18 at 17:00 Vancomycin HCl (Vancomycin Oral Syringe) 250 mg Q6 PO Last administered on 05/12/18at 05:01; Admin Dose 250 MG; Start 05/12/18 at 00:00 Metronidazole 100 ml @ 100 mls/hr Q8 IVPB Last administered on 05/12/18at 05:01; Admin Dose 100 MLS/HR; Start 05/11/18 at 20:00 Sodium Bicarbonate 150 meq/Dextrose 1,150 ml @ 75 mls/hr [id number] IV ; Start 05/12/18 at 08:00 SHAHEEN GAMBOA May 12, 2018 08:20
--- NOTE | 2018-05-12 08:26 | PN ---
DATE: 05/12/2018 SUBJECTIVE: The patient remains critically ill on pressor support with pressors requirements increas ing. Urinary output has been marginal. OBJECTIVE: VITAL SIGNS: Blood pressure 78/41, respirations 27, pulse 117, temperature 98.6. HEENT: Head is normocephalic. NECK: Shows a previous ostomy site. HEART: Tachycardic. LUNGS: Show diminished breath sounds at the base. ABDOMEN: Soft, nontender to palpation. EXTREMITIES: Negative for clubbing, cyanosis. Positive edema. DERMATOLOGIC: No rashes. MUSCULOSKELETAL: No joint effusion. NEUROLOGIC: No change in exam. MEDICATIONS: Reviewed. LABORATORY DATA: Shows white count 16.4, hemoglobin 8.4, platelet count is 254. Sodium 137, potassi um 4.3, BUN 118, creatinine 2.44, CBC was reviewed. ABG shows pH 7.27, pCO2 of 34, base excess at -1 0. IMAGING STUDIES: The patient's chest x-ray was reviewed from 05/11/2018 shows interstitial infiltrat es secondary to edema. ASSESSMENT AND PLAN: 1. Nonoliguric acute kidney injury on top of chronic kidney disease with previous baseline creatinin e around 2.5 mg/dL. Etiology of acute kidney injury is secondary to sepsis, acute tubular necrosis. The patient's renal function has been fluctuating around a creatinine of 2.5. However, the patient has progressive azotemia and urinary output has been marginal. The patient is noted to be positive o charis 10 liters. Additionally, the patient's creatinine is overestimating patient's true EGFR as she i s cachectic. At this point, we will discuss with the patient's family and the primary care team abou t the possibility of initiating dialysis for solute clearance and volume removal. We would otherwise continue current treatment plan, supportive care, renally dose all medicines. 2. Metabolic acidosis. The patient's bicarbonate drip will be adjusted. We will change to D5W with 3 amps at 75 mL an hour, monitor ABGs closely. 3. Anemia. Continue to monitor hemoglobin and hematocrit levels. 4. Mineral bone disorder, monitor calcium and phosphorus levels. 5. Volume overload. The patient has noted edema and vascular congestion. Unable to diurese in the setting of shock. We will continue to monitor. The patient may require dialysis with ultrafiltratio n. 6. Septic shock secondary to urinary tract infection. Continue pressor support, antibiotic therapy. 7. Tachyarrhythmia. Continue to monitor. 8. Chronic respiratory failure. Continue to monitor. ABG was reviewed. 9. Dysphagia, status post percutaneous endoscopic gastrostomy. 10. Acute encephalopathy, etiology is toxic metabolic. 11. Decompensated heart failure, as stated above, the patient is volume overloaded. However, diuret ic therapy has been held in the setting of shock. Please note I spent over 30 minutes of critical care time with this patient. Dictated By: JEANA BANSAL DO NR/NTS Conf#: [id number] DID#: [id number] CC: ROLAND GIRON MD; QUINTEN UMAÑA MD;*EndCC*
[2018-05-12] MEDS: ZINC SULFATE 220 MG CAP GTB SCH (08:50)
[2018-05-12] MEDS: MULTIVITAMINS 30 ML CUP GTB SCH (08:50)
[2018-05-12] MEDS: ASCORBIC ACID 500 MG TAB GTB SCH (08:50)
[2018-05-12] MEDS: SODIUM BICARBONATE (IV ADD) 150 MEQ in DEXTROSE 5% 1,000 ML IV SCH ×2 (10:07→23:36)
--- NOTE | 2018-05-12 10:25 | CONS ---
Consult Date/Type/Reason Admit Date/Time May 06, 2018 at 17:38 Initial Consult Date 05/10/18 Type of Consult Pulmonary Requesting Provider: ROLAND GIRON MD Date/Time of Note DATE: 05/12/18 TIME: 10:19 Subjective Patient remains somnolent on nasal cannula O2. Decreased renal output noted. Objective Vital Signs Date Temp Pulse Resp B/P (MAP) Pulse Ox O2 O2 Flow FiO2 Time Delivery Rate 05/12/18 111 32 116/51 95 Nasal 10:00 (72) Cannula 05/12/18 99.1 4.0 08:00 05/12/18 33 01:45 Intake and Output 05/11/18 05/11/18 05/12/18 1515:00 23:00 07:00 IntakeIntake Total 1210.76 ml 810.65 ml 873.76 ml OutputOutput Total 230 ml 230 ml 270 ml BalanceBalance 980.76 ml 580.65 ml 603.76 ml Exam GENERAL: Chronically ill-appearing lady on nasal cannula O2 VITAL SIGNS: per chart NECK: Supple. No JVD or lymphadenopathy. CARDIAC EXAM: S1, S2. No added sounds or murmurs. CHEST: Diminished air entry bilaterally with rales ABDOMEN: Soft, nontender. No guarding or rebound. EXTREMITIES: No cyanosis, clubbing edema +1 NEUROLOGIC: Unable to assess remains somnolent Vent Setting Fraction of Inspired Oxygen pe: 33 Results/Medications Result Diagram: 05/12/18 0430 05/12/18 0430 Results 24 hrs Laboratory Tests Test 05/12/18 04:30 05/12/18 05:00 White Blood Count 16.4 H Red Blood Count 2.49 L Hemoglobin 8.4 L Hematocrit 26.1 L Mean Corpuscular Volume 104.8 H Mean Corpuscular Hemoglobin 33.7 H Mean Corpuscular Hemoglobin Concent 32.2 Red Cell Distribution Width 17.3 H Platelet Count 254 Mean Platelet Volume 9.2 Immature Granulocytes % 1.800 H Neutrophils % 90.6 H Lymphocytes % 3.8 L Monocytes % 1.5 Eosinophils % 2.1 Basophils % 0.2 Nucleated Red Blood Cells % 0.0 Immature Granulocytes # 0.300 H Neutrophils # 14.8 H Lymphocytes # 0.6 L Monocytes # 0.3 Eosinophils # 0.3 Basophils # 0.0 Nucleated Red Blood Cells # 0.0 Sodium Level 137 Potassium Level 4.3 Chloride Level 106 Carbon Dioxide Level 13 L Anion Gap 18 H Blood Urea Nitrogen 118 H Creatinine 2.44 H Est Glomerular Filtrat Rate mL/min Glucose Level 239 #H Calcium Level 8.2 L Phosphorus Level 3.8 Magnesium Level 2.0 Valproic Acid (Depakene) Level < 10 L Blood Gas Specimen Source Blood arterial Arterial Blood Date Drawn 05/12/2018 5:10:43 AM Arterial Blood pH (Temp corrected) 7.273 *L Arterial Blood pCO2 (Temp correct) 34.3 L Arterial Blood pO2 (Temp corrected) 72.6 L Arterial Blood HCO3 15.5 L Arterial Blood Base Excess -10.4 L Arterial Blood Oxygen Saturation 93.1 L Steven Test ACCEPTAB Arterial Blood Gas Puncture Site Right Radial Arterial Blood Carboxyhemoglobin 1.2 Arterial Blood Methemoglobin 0.3 Blood Gas A-a O2 Differential 122.6 H Oxyhemoglobin Percent 91.7 L Blood Gas Temperature 37.0 Blood Gas Actual Respiration Rate 24 Blood Gas Modality NASAL CANNULA FiO2 33.0 Blood Gas Critical Value Read Back A VENKAT RN Blood Gas Notified Whom Blood Gas Notified Time 05/12/2018 5:20:48 AM Medications Current Medications IV Flush (NS 10 ml) 10 ml PRN IV ; Start 05/06/18 at 20:30 Ascorbic Acid (Vitamin C) 500 mg DAILY GTB Last administered on 05/12/18at 08:50; Admin Dose 500 MG; Start 05/07/18 at 09:00 Albuterol/ Ipratropium (Duoneb) 3 ml Q2H RESP THERAPY PRN HHN SHORTNESS OF BREATH; Start 05/06/18 at 23:30 Albuterol/ Ipratropium (Duoneb) 3 ml Q6H RESP THERAPY HHN Last administered on 05/12/18at 01:29; Admin Dose 3 ML; Start 05/07/18 at 02:00 Lorazepam (Ativan Intensol) 0.5 mg Q6H PRN PEG ANXIETY; Start 05/06/18 at 23:30 Quetiapine Fumarate (Seroquel) 300 mg HS GTB Last administered on 05/11/18at 21:12; Admin Dose 300 MG; Start 05/07/18 at 21:00 Valproate Sodium (Depakene Liquid Cup) 100 mg QHS GTB Last administered on 05/11/18 21:11; Admin Dose 100 MG; Start 05/07/18 at 21:00 Zinc Sulfate (Zinc Sulfate) 220 mg DAILY GTB Last administered on 05/12/18 08:50; Admin Dose 220 MG; Start 05/07/18 at 09:00 Lansoprazole (Prevacid) 30 mg DAILY@06 GTB Last administered on 05/12/18 05:01; Admin Dose 30 MG; Start 05/07/18 at 06:00 Ondansetron HCl (Zofran Tab) 4 mg Q6H PRN GTB NAUSEA AND/OR VOMITING; Start 05/07/18 at 00:15 Multivitamins (Multivitamin) 30 ml DAILY GTB Last administered on 05/12/18 08:50; Admin Dose 30 ML; Start 05/07/18 at 09:00 Epoetin Zen (Epogen (Esrd)) 20,000 units Tu@1700 SC ; Start 05/12/18 at 17:00 Norepinephrine 250 ml @ 1.875 mls/ hr TITRATE IV Last administered on 05/08/18 13:33; Admin Dose 33.75 MLS/HR; Start 05/08/18 at 03:00 Citric Acid/ Sodium Citrate (Bicitra) 30 ml Q8 PO Last administered on 05/12/18 05:07; Admin Dose 30 ML; Start 05/09/18 at 08:00 Phenylephrine HCl 80 mg/Dextrose 250 ml @ 18.75 mls/ hr TITRATE IV Last administered on 05/12/18 04:55; Admin Dose 24.38 MLS/HR; Start 05/09/18 at 12:30 Miscellaneous Information (Pending Santyl Order For Wound Care) This patient goldman... PRN PRN XX WOUND CARE; Start 05/09/18 at 17:00 Vancomycin HCl (Vancomycin Oral Syringe) 250 mg Q6 PO Last administered on 05/12/18 05:01; Admin Dose 250 MG; Start 05/12/18 at 00:00 Metronidazole 100 ml @ 100 mls/hr Q8 IVPB Last administered on 05/12/18 05:01; Admin Dose 100 MLS/HR; Start 05/11/18 at 20:00 Sodium Bicarbonate 150 meq/Dextrose 1,150 ml @ 75 mls/hr [id number] IV Last admin istered on 05/12/18at 10:07; Admin Dose 75 MLS/HR; Start 05/12/18 at 08:00 Assessment/Plan Hospital Course (Demo Recall) IMP: 1. Septic Shock--2/2 urosepsis 2. Acute Renal Failure--likely non-oliguric ATN 3. Metabolic Acidosis--mostly 2/2 ARF 4. Encephalopathy--toxic-metabolic 2/2 infection and ARF, in addition to baseline 5. Anemia--r/o acute GIB 6. H/O abdominal abscess 7. Possible underlying ARDS versus interstitial lung disease. History of respiratory failure status post decannulation RECS: 1. IVF's with NaHCO3 with significant metabolic acidosis 2. Respiratory status is tenuous though at this time she is protecting her airway and is compensating for the metabolic acidosis. May require reintubation 3. Abx as per ID 4. Follow mental status and gases, low threshold for intubation 5. Aspiration precautions pulmonary toilet 6. Monitor H&H post transfusion 7. Follow lactate 8. Renal recommendations Discussed with primary care physician we need to family care conference regarding goals of care. Reintubation would likely result and tracheostomy. Renal failure also noted. nephrology to discuss appropriateness of dialysis with family. Critical care time 40 minutes. LAURA JENKINS MD, [facility] May 12, 2018 10:25
--- NOTE | 2018-05-12 12:17 | PN ---
Date/Time of Note Date/Time of Note DATE: 05/12/18 TIME: 12:10 Assessment/Plan VTE Prophylaxis Risk score (from Ns)>0 risk: 11 SCD applied (from Ns): Yes Pharmacological prophylaxis: NA/contraindicated Pharm contraindication: bleeding Lines/Catheters IV Catheter Type (from Nrsg): PICC Line Central line still needed: Yes Urinary Cath still in place: Yes Reason Cath still needed: urinary retention Assessment/Plan Hospital Course Patient continues on Earnest-Synephrine drip for BP support, on bicarb drip for middle metabolic acidosis. Patient is lethargic however response to pain stimuli, tachycardic and tachypneic, continues on supplemental oxygen via nasal cannula. Assessment/Plan -Septic shock secondary to urinary tract infection, anterior neck soft tissue infection, and C. difficile colitis. Continue pressors for hemodynamic support, IV fluids, antibiotics per ID. Dr. Black is following in infection disease consultation. -Acute kidney injury on chronic kidney disease. Dr. Mckeon is following in nephrology consultation. -Metabolic acidosis -Acute diastolic congestive heart failure. Dr. Scanlon is following in cardiology consultation. -Paroxysmal atrial fibrillation, remains sinus rhythm -COPD -Dysphagia with PEG. -G-tube mild malfunction, changed by GI Dr. Carolina is following in gastroenterology consultation. -Obesity Critical care time spent is 30 minutes. Further recommendations based on clinical course. Plan of care discussed with Dr. Eisenberg. Result Diagram: 05/12/18 0430 05/12/18 0430 Results 24hrs Laboratory Tests Test 05/12/18 04:30 05/12/18 05:00 White Blood Count 16.4 H Red Blood Count 2.49 L Hemoglobin 8.4 L Hematocrit 26.1 L Mean Corpuscular Volume 104.8 H Mean Corpuscular Hemoglobin 33.7 H Mean Corpuscular Hemoglobin Concent 32.2 Red Cell Distribution Width 17.3 H Platelet Count 254 Mean Platelet Volume 9.2 Immature Granulocytes % 1.800 H Neutrophils % 90.6 H Lymphocytes % 3.8 L Monocytes % 1.5 Eosinophils % 2.1 Basophils % 0.2 Nucleated Red Blood Cells % 0.0 Immature Granulocytes # 0.300 H Neutrophils # 14.8 H Lymphocytes # 0.6 L Monocytes # 0.3 Eosinophils # 0.3 Basophils # 0.0 Nucleated Red Blood Cells # 0.0 Sodium Level 137 Potassium Level 4.3 Chloride Level 106 Carbon Dioxide Level 13 L Anion Gap 18 H Blood Urea Nitrogen 118 H Creatinine 2.44 H Est Glomerular Filtrat Rate mL/min Glucose Level 239 #H Calcium Level 8.2 L Phosphorus Level 3.8 Magnesium Level 2.0 Valproic Acid (Depakene) Level < 10 L Blood Gas Specimen Source Blood arterial Arterial Blood Date Drawn 05/12/2018 5:10:43 AM Arterial Blood pH (Temp corrected) 7.273 *L Arterial Blood pCO2 (Temp correct) 34.3 L Arterial Blood pO2 (Temp corrected) 72.6 L Arterial Blood HCO3 15.5 L Arterial Blood Base Excess -10.4 L Arterial Blood Oxygen Saturation 93.1 L Steven Test ACCEPTAB Arterial Blood Gas Puncture Site Right Radial Arterial Blood Carboxyhemoglobin 1.2 Arterial Blood Methemoglobin 0.3 Blood Gas A-a O2 Differential 122.6 H Oxyhemoglobin Percent 91.7 L Blood Gas Temperature 37.0 Blood Gas Actual Respiration Rate 24 Blood Gas Modality NASAL CANNULA FiO2 33.0 Blood Gas Critical Value Read Back A VENKAT SABA Blood Gas Notified Whom Blood Gas Notified Time 05/12/2018 5:20:48 AM Exam/Review of Systems Exam Vitals Vital Signs Date Temp Pulse Resp B/P (MAP) Pulse Ox O2 O2 Flow FiO2 Time Delivery Rate 05/12/18 112 31 99/49 (66) 93 Nasal 11:00 Cannula 05/12/18 99.1 4.0 08:00 05/12/18 33 01:45 Intake and Output 05/11/18 05/11/18 05/12/18 1515:00 23:00 07:00 IntakeIntake Total 1210.76 ml 810.65 ml 873.76 ml OutputOutput Total 230 ml 230 ml 270 ml BalanceBalance 980.76 ml 580.65 ml 603.76 ml Exam Constitutional: frail Respiratory: diminished breath sounds Cardiovascular: regular rate and rhythm Gastrointestinal: soft, tender, other (G-tube) Musculoskeletal: nl extremities to inspection Extremities: normal pulses Neurological: lethargic Results Results 24hrs Laboratory Tests Test 05/12/18 04:30 05/12/18 05:00 White Blood Count 16.4 H Red Blood Count 2.49 L Hemoglobin 8.4 L Hematocrit 26.1 L Mean Corpuscular Volume 104.8 H Mean Corpuscular Hemoglobin 33.7 H Mean Corpuscular Hemoglobin Concent 32.2 Red Cell Distribution Width 17.3 H Platelet Count 254 Mean Platelet Volume 9.2 Immature Granulocytes % 1.800 H Neutrophils % 90.6 H Lymphocytes % 3.8 L Monocytes % 1.5 Eosinophils % 2.1 Basophils % 0.2 Nucleated Red Blood Cells % 0.0 Immature Granulocytes # 0.300 H Neutrophils # 14.8 H Lymphocytes # 0.6 L Monocytes # 0.3 Eosinophils # 0.3 Basophils # 0.0 Nucleated Red Blood Cells # 0.0 Sodium Level 137 Potassium Level 4.3 Chloride Level 106 Carbon Dioxide Level 13 L Anion Gap 18 H Blood Urea Nitrogen 118 H Creatinine 2.44 H Est Glomerular Filtrat Rate mL/min Glucose Level 239 #H Calcium Level 8.2 L Phosphorus Level 3.8 Magnesium Level 2.0 Valproic Acid (Depakene) Level < 10 L Blood Gas Specimen Source Blood arterial Arterial Blood Date Drawn 05/12/2018 5:10:43 AM Arterial Blood pH (Temp corrected) 7.273 *L Arterial Blood pCO2 (Temp correct) 34.3 L Arterial Blood pO2 (Temp corrected) 72.6 L Arterial Blood HCO3 15.5 L Arterial Blood Base Excess -10.4 L Arterial Blood Oxygen Saturation 93.1 L Steven Test ACCEPTAB Arterial Blood Gas Puncture Site Right Radial Arterial Blood Carboxyhemoglobin 1.2 Arterial Blood Methemoglobin 0.3 Blood Gas A-a O2 Differential 122.6 H Oxyhemoglobin Percent 91.7 L Blood Gas Temperature 37.0 Blood Gas Actual Respiration Rate 24 Blood Gas Modality NASAL CANNULA FiO2 33.0 Blood Gas Critical Value Read Back Efraín ROBLEDO RN Blood Gas Notified Whom Blood Gas Notified Time 05/12/2018 5:20:48 AM Medications Medication Current Medications IV Flush (NS 10 ml) 10 ml PRN IV ; Start 05/06/18 at 20:30 Ascorbic Acid (Vitamin C) 500 mg DAILY GTB Last administered on 05/12/18at 08:50; Admin Dose 500 MG; Start 05/07/18 at 09:00 Albuterol/ Ipratropium (Duoneb) 3 ml Q2H RESP THERAPY PRN HHN SHORTNESS OF BREATH; Start 05/06/18 at 23:30 Albuterol/ Ipratropium (Duoneb) 3 ml Q6H RESP THERAPY HHN Last administered on 05/12/18 01:29; Admin Dose 3 ML; Start 05/07/18 at 02:00 Lorazepam (Ativan Intensol) 0.5 mg Q6H PRN PEG ANXIETY; Start 05/06/18 at 23:30 Quetiapine Fumarate (Seroquel) 300 mg HS GTB Last administered on 05/11/18 21:12; Admin Dose 300 MG; Start 05/07/18 at 21:00 Valproate Sodium (Depakene Liquid Cup) 100 mg QHS GTB Last administered on 05/11/18 21:11; Admin Dose 100 MG; Start 05/07/18 at 21:00 Zinc Sulfate (Zinc Sulfate) 220 mg DAILY GTB Last administered on 05/12/18 08:50; Admin Dose 220 MG; Start 05/07/18 at 09:00 Lansoprazole (Prevacid) 30 mg DAILY@06 GTB Last administered on 05/12/18 0 5:01; Admin Dose 30 MG; Start 05/07/18 at 06:00 Ondansetron HCl (Zofran Tab) 4 mg Q6H PRN GTB NAUSEA AND/OR VOMITING; Start 05/07/18 at 00:15 Multivitamins (Multivitamin) 30 ml DAILY GTB Last administered on 05/12/18 08:50; Admin Dose 30 ML; Start 05/07/18 at 09:00 Epoetin Zen (Epogen (Esrd)) 20,000 units Tu@1700 SC ; Start 05/12/18 at 17:00 Norepinephrine 250 ml @ 1.875 mls/ hr TITRATE IV Last administered on 05/08/18at 13:33; Admin Dose 33.75 MLS/HR; Start 05/08/18 at 03:00 Citric Acid/ Sodium Citrate (Bicitra) 30 ml Q8 PO Last administered on 05/12/18 05:07; Admin Dose 30 ML; Start 05/09/18 at 08:00 Phenylephrine HCl 80 mg/Dextrose 250 ml @ 18.75 mls/ hr TITRATE IV Last administered on 05/12/18 04:55; Admin Dose 24.38 MLS/HR; Start 05/09/18 at 12:30 Miscellaneous Information (Pending Santyl Order For Wound Care) This patient goldman... PRN PRN XX WOUND CARE; Start 05/09/18 at 17:00 Vancomycin HCl (Vancomycin Oral Syringe) 250 mg Q6 PO Last administered on 05/12/18at 11:34; Admin Dose 250 MG; Start 05/12/18 at 00:00 Metronidazole 100 ml @ 100 mls/hr Q8 IVPB Last administered on 05/12/18at 05:01; Admin Dose 100 MLS/HR; Start 05/11/18 at 20:00 Sodium Bicarbonate 150 meq/Dextrose 1,150 ml @ 75 mls/hr [id number] IV Last administered on 05/12/18at 10:07; Admin Dose 75 MLS/HR; Start 05/12/18 at 08:00 GRISELDA DENNIS May 12, 2018 12:17
--- NOTE | 2018-05-12 16:06 | CONS ---
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 colonization of the airway by pseudomonas and ESBL+klebsiella - h/o possible, recurrent HCAP due to pseudomonas and ESBL+klebsiella - h/o recurrent HCAP due to MRSA and Enterobacter (culture of tracheal aspirate on 07/16/2017 that was collected at [facility]) . Pt took vancomycin and ceftazidime - h/o acute respiratory distress post-thoracentesis, resolved - h/o thoracentesis on 07/18/2017, transudative (protein <2, LDH 279) - h/o bleeding from the trach site - h/o septic shock due to pneumonia, ARDS, bacteremia, fungemia - h/o ARDS - h/o smoking - COPD - ILD # Cardiac - PAF, currently sinus tachycardia # GI - C diff colitis, diagnosed on 05/11/2018 - h/o intermittent diarrhea, Pt had multiple negative C. diff tests at [facility] at [facility] in the past - dysphagia - h/o PEG placement 06/13/2018 - protein calorie malnutrition - h/o coffee ground emesis/UGIB 12/23/2017 due to deep ulceration of distal esophagus and gastritis on EGD 12/26/2017. No e/o H. pylori - h/o possible appendicitis on CT on 11/22/2017, Pt took ertapenem (11/24/2017- 12/01/2017) - h/o extensive adhesions lower abdominal and pelvis between small bowel to each other and to colon and to abdominal wall, anterior pelvic wall chronic abscess secondary to probably an old perforated diverticulitis, torsion of small bowel around these dense adhesion causing multiple obstructive points - h/o laparoscopic exploration and extensive lysis of adhesions and drainage of anterior pelvic wall abscess 09/16/2017. Cultures were negative, no e/o malignancy. 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 JADE Villareal requested that Claudia at [facility] test his strain of CRE against colistin, Avycaz, Zerbaxa, and Vabomere on 05/07/2018 - Hyponatremia - Hyperkalemia, now hypokalemia - Metabolic acidosis - adrenal insufficiency - h/o vaginal bleed - h/o colonization of urinary tract by ESBL+klebsiella, VRE - h/o recurrent, symptomatic UTI due to carbapenem-resistant kleb (MDR strain) per urine culture 10/04/17, 10/09/17, 10/21/2017, P took colistin (10/09/2017- 10/15/2017), fosfomycin for carbapenemase-producing klebsiella and VRE on 10/25/2017 and 10/28/2017 - h/o funguria - h/o urinary retention # fungemia, bacteremia - h/o bacteremia due to coag negative Staph, probable contaminant as her WBC level improved initially without antibiotic - 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 improved. Probable manifestation of endocarditis. Pt declined MRI on 08/06/2017 - h/o infection of R toes due to pseudomonas. coagulase negative Staph likely a colonizer. resolved - h/o intertrigo of the groin, resolved with nystatin powder - h/o scabies, locally crusted lesion over L scapula, s/p permethrin cream and pGT ivermectin on 08/11/2017, 08/12/2017, 08/19/2017. Repeat skin scraping on 08/21/2017 was negative for scabies # psych, neuro - acute toxic metabolic encephalopathy - decreased hearing b/l - h/o critical illness polyneuropathy - anxiety/depression, bipolar d/o, seen by Psychiatry in the past - chronic pain syndrome - medical non-compliance: she would refuse her medications, treatment and straight catheterization at times # hematological, vascular - chronic anemia requiring blood transfusion intermittently - Macrocytic anemia - 3.1 cm AAA on imaging - PVD recommendations: - ordered: venous doppler LUDY to r/o DVT - continue pGT vancomycin (05/11/2018-) and IV metronidazole (05/11/2018) for C di ff colitis - in light of C diff colitis, I recommend holding other antibiotics the critical care time I took to care for this Pt today was from 1530 to 1600 Consultation Date/Type/Reason Admit Date/Time May 06, 2018 at 17:38 Initial Consult Date 05/10/18 Type of Consult ID Requesting Provider: ROLAND GIRON MD Date/Time of Note DATE: 05/12/18 TIME: 15:57 24 HR Interval Summary Subjective hx not possible: pt non-verbal, pt critical, pt critical status Exam/Review of Systems Exam Vitals Vital Signs Date Temp Pulse Resp B/P (MAP) Pulse Ox O2 O2 Flow FiO2 Time Delivery Rate 05/12/18 106 18 69/33 (45) 15:15 05/12/18 92 Nasal 4.0 15:00 Cannula 05/12/18 98.0 12:00 05/12/18 33 01:45 Intake and Output 05/11/18 05/11/18 05/12/18 1515:00 23:00 07:00 IntakeIntake Total 1210.76 ml 810.65 ml 948.76 ml OutputOutput Total 230 ml 230 ml 270 ml BalanceBalance 980.76 ml 580.65 ml 678.76 ml Constitutional: non-verbal, frail Psych: confusion, other (would open her eyes but does not track) Head: normocephalic, atraumatic Eyes: nl conjunctiva, nl lids, nl sclera ENMT: nl external ears & nose, nl nasal mucosa & septum, mucosa pink and moist Neck: other (anterior neck has wound that is clean, not erythematous and not TTP) Respiratory: labored breathing, wheezing Cardiovascular: other (trachycardic and regular) Gastrointestinal: soft, non-tender, other (GT); No distended, No tender Genitourinary - Female: other (+diggs catheter) Musculoskeletal: other (eschar on toes) Extremities: edema (all extremities), pitting pedal edema, other (lymphedema of all extremities) Neurological: unresponsive Skin: rash or lesions (faint erythema on theextensor surface of b/l UEs), ecchymosis Results Result Diagram: 05/12/18 0430 05/12/18 0430 Results 24hrs Laboratory Tests Test 05/12/18 04:30 05/12/18 05:00 White Blood Count 16.4 H Red Blood Count 2.49 L Hemoglobin 8.4 L Hematocrit 26.1 L Mean Corpuscular Volume 104.8 H Mean Corpuscular Hemoglobin 33.7 H Mean Corpuscular Hemoglobin Concent 32.2 Red Cell Distribution Width 17.3 H Platelet Count 254 Mean Platelet Volume 9.2 Immature Granulocytes % 1.800 H Neutrophils % 90.6 H Lymphocytes % 3.8 L Monocytes % 1.5 Eosinophils % 2.1 Basophils % 0.2 Nucleated Red Blood Cells % 0.0 Immature Granulocytes # 0.300 H Neutrophils # 14.8 H Lymphocytes # 0.6 L Monocytes # 0.3 Eosinophils # 0.3 Basophils # 0.0 Nucleated Red Blood Cells # 0.0 Sodium Level 137 Potassium Level 4.3 Chloride Level 106 Carbon Dioxide Level 13 L Anion Gap 18 H Blood Urea Nitrogen 118 H Creatinine 2.44 H Est Glomerular Filtrat Rate mL/min Glucose Level 239 #H Calcium Level 8.2 L Phosphorus Level 3.8 Magnesium Level 2.0 Valproic Acid (Depakene) Level < 10 L Blood Gas Specimen Source Blood arterial Arterial Blood Date Drawn 05/12/2018 5:10:43 AM Arterial Blood pH (Temp corrected) 7.273 *L Arterial Blood pCO2 (Temp correct) 34.3 L Arterial Blood pO2 (Temp corrected) 72.6 L Arterial Blood HCO3 15.5 L Arterial Blood Base Excess -10.4 L Arterial Blood Oxygen Saturation 93.1 L Steven Test ACCEPTAB Arterial Blood Gas Puncture Site Right Radial Arterial Blood Carboxyhemoglobin 1.2 Arterial Blood Methemoglobin 0.3 Blood Gas A-a O2 Differential 122.6 H Oxyhemoglobin Percent 91.7 L Blood Gas Temperature 37.0 Blood Gas Actual Respiration Rate 24 Blood Gas Modality NASAL CANNULA FiO2 33.0 Blood Gas Critical Value Read Back A VENKAT SABA Blood Gas Notified Whom Blood Gas Notified Time 05/12/2018 5:20:48 AM Medications Medication Current Medications IV Flush (NS 10 ml) 10 ml PRN IV ; Start 05/06/18 at 20:30 Ascorbic Acid (Vitamin C) 500 mg DAILY GTB Last administered on 05/12/18at 08:50; Admin Dose 500 MG; Start 05/07/18 at 09:00 Albuterol/ Ipratropium (Duoneb) 3 ml Q2H RESP THERAPY PRN HHN SHORTNESS OF BREATH; Start 05/06/18 at 23:30 Albuterol/ Ipratropium (Duoneb) 3 ml Q6H RESP THERAPY HHN Last administered on 05/12/18at 01:29; Admin Dose 3 ML; Start 05/07/18 at 02:00 Lorazepam (Ativan Intensol) 0.5 mg Q6H PRN PEG ANXIETY; Start 05/06/18 at 23:30 Zinc Sulfate (Zinc Sulfate) 220 mg DAILY GTB Last administered on 05/12/18at 08:50; Admin Dose 220 MG; Start 05/07/18 at 09:00 Lansoprazole (Prevacid) 30 mg DAILY@06 GTB Last administered on 05/12/18at 05:01; Admin Dose 30 MG; Start 05/07/18 at 06:00 Ondansetron HCl (Zofran Tab) 4 mg Q6H PRN GTB NAUSEA AND/OR VOMITING; Start 05/07/18 at 00:15 Multivitamins (Multivitamin) 30 ml DAILY GTB Last administered on 05/12/18 08:50; Admin Dose 30 ML; Start 05/07/18 at 09:00 Epoetin Zen (Epogen (Esrd)) 20,000 units Tu@1700 SC ; Start 05/12/18 at 17:00 Norepinephrine 250 ml @ 1.875 mls/ hr TITRATE IV Last administered on 05/08/18 13:33; Admin Dose 33.75 MLS/HR; Start 05/08/18 at 03:00 Citric Acid/ Sodium Citrate (Bicitra) 30 ml Q8 PO Last administered on 05/12/18 14:23; Admin Dose 30 ML; Start 05/09/18 at 08:00 Phenylephrine HCl 80 mg/Dextrose 250 ml @ 18.75 mls/ hr TITRATE IV Last administered on 05/12/18 15:13; Admin Dose 33.75 MLS/HR; Start 05/09/18 at 12:30 Miscellaneous Information (Pending Santyl Order For Wound Care) This patient goldman... PRN PRN XX WOUND CARE; Start 05/09/18 at 17:00 Vancomycin HCl (Vancomycin Oral Syringe) 250 mg Q6 PO Last administered on 05/12/18 11:34; Admin Dose 250 MG; Start 05/12/18 at 00:00 Metronidazole 100 ml @ 100 mls/hr Q8 IVPB Last administered on 05/12/18 14:23; Admin Dose 100 MLS/HR; Start 05/11/18 at 20:00 Sodium Bicarbonate 150 meq/Dextrose 1,150 ml @ 75 mls/hr [id number] IV Last administered on 05/12/18 10:07; Admin Dose 75 MLS/HR; Start 05/12/18 at 08:00 Collagenase (Santyl) 1 applic DAILY TOP ; Start 05/13/18 at 09:00 CELESTINE MURPHY M.D. May 12, 2018 16:06
--- NOTE | 2018-05-12 16:18 | CONS ---
Assessment/Plan Assessment/Plan Hospital Course (Demo Recall) Septic as well as hemorrhagic shock Hypotension on IV pressor Acute blood loss anemia History of respiratory failure status post decannulation Preserved ejection fraction echocardiogram 05/10/2018 Paroxysmal atrial fibrillation, currently sinus rhythm Acute kidney injury -Patient with overall worsening mental status and respiratory status. Discussion with nurse and primary physician, patient will likely need to be intubated the patient remains a full code. They are in attempts of contacting the son to decide plans of care -Titrate IV pressor to maintain SBP greater than 90 and/or map above 60 -IV fluids as per renal we will close monitor respiratory status -Hold all antihypertensives and nephrotoxic medications -Antibiotics as per infectious disease -Greater than 33 minutes of critical care time taken in the care of this patient Consultation Date/Type/Reason Admit Date/Time May 06, 2018 at 17:38 Initial Consult Date 05/10/18 Type of Consult Cardiology Requesting Provider: ROLAND GIRON MD Date/Time of Note DATE: 05/12/18 TIME: 16:16 24 HR Interval Summary Free Text/Dictation Patient seen and examined. Exam/Review of Systems Vital Signs Vitals Vital Signs Date Temp Pulse Resp B/P (MAP) Pulse Ox O2 O2 Flow FiO2 Time Delivery Rate 05/12/18 98.8 105 18 77/61 (66) 96 Nasal 4.0 16:00 Cannula 05/12/18 33 01:45 Intake and Output 05/11/18 05/11/18 05/12/18 1515:00 23:00 07:00 IntakeIntake Total 1210.76 ml 810.65 ml 948.76 ml OutputOutput Total 230 ml 230 ml 270 ml BalanceBalance 980.76 ml 580.65 ml 678.76 ml Exam Exam Somnolent, no response to verbal stimuli, dyspneic Head: normocephalic Respiratory: other (Coarse rhonchorous breath sounds, scattered wheezing) Cardiovascular: regular rate and rhythm (S1-S2 heard) Gastrointestinal: soft, non-tender, bowel sounds Extremities: edema Labs Result Diagram: 05/12/18 0430 05/12/18 0430 Results 24hrs Laboratory Tests Test 05/12/18 04:30 05/12/18 05:00 White Blood Count 16.4 H Red Blood Count 2.49 L Hemoglobin 8.4 L Hematocrit 26.1 L Mean Corpuscular Volume 104.8 H Mean Corpuscular Hemoglobin 33.7 H Mean Corpuscular Hemoglobin Concent 32.2 Red Cell Distribution Width 17.3 H Platelet Count 254 Mean Platelet Volume 9.2 Immature Granulocytes % 1.800 H Neutrophils % 90.6 H Lymphocytes % 3.8 L Monocytes % 1.5 Eosinophils % 2.1 Basophils % 0.2 Nucleated Red Blood Cells % 0.0 Immature Granulocytes # 0.300 H Neutrophils # 14.8 H Lymphocytes # 0.6 L Monocytes # 0.3 Eosinophils # 0.3 Basophils # 0.0 Nucleated Red Blood Cells # 0.0 Sodium Level 137 Potassium Level 4.3 Chloride Level 106 Carbon Dioxide Level 13 L Anion Gap 18 H Blood Urea Nitrogen 118 H Creatinine 2.44 H Est Glomerular Filtrat Rate mL/min Glucose Level 239 #H Calcium Level 8.2 L Phosphorus Level 3.8 Magnesium Level 2.0 Valproic Acid (Depakene) Level < 10 L Blood Gas Specimen Source Blood arterial Arterial Blood Date Drawn 05/12/2018 5:10:43 AM Arterial Blood pH (Temp corrected) 7.273 *L Arterial Blood pCO2 (Temp correct) 34.3 L Arterial Blood pO2 (Temp corrected) 72.6 L Arterial Blood HCO3 15.5 L Arterial Blood Base Excess -10.4 L Arterial Blood Oxygen Saturation 93.1 L Steven Test ACCEPTAB Arterial Blood Gas Puncture Site Right Radial Arterial Blood Carboxyhemoglobin 1.2 Arterial Blood Methemoglobin 0.3 Blood Gas A-a O2 Differential 122.6 H Oxyhemoglobin Percent 91.7 L Blood Gas Temperature 37.0 Blood Gas Actual Respiration Rate 24 Blood Gas Modality NASAL CANNULA FiO2 33.0 Blood Gas Critical Value Read Back A VENKAT SABA Blood Gas Notified Whom Blood Gas Notified Time 05/12/2018 5:20:48 AM Medications Medications Current Medications IV Flush (NS 10 ml) 10 ml PRN IV ; Start 05/06/18 at 20:30 Ascorbic Acid (Vitamin C) 500 mg DAILY GTB Last administered on 05/12/18at 08:50; Admin Dose 500 MG; Start 05/07/18 at 09:00 Albuterol/ Ipratropium (Duoneb) 3 ml Q2H RESP THERAPY PRN HHN SHORTNESS OF BREATH; Start 05/06/18 at 23:30 Albuterol/ Ipratropium (Duoneb) 3 ml Q6H RESP THERAPY HHN Last administered on 05/12/18at 01:29; Admin Dose 3 ML; Start 05/07/18 at 02:00 Lorazepam (Ativan Intensol) 0.5 mg Q6H PRN PEG ANXIETY; Start 05/06/18 at 23:30 Zinc Sulfate (Zinc Sulfate) 220 mg DAILY GTB Last administered on 05/12/18 08:50; Admin Dose 220 MG; Start 05/07/18 at 09:00 Lansoprazole (Prevacid) 30 mg DAILY@06 GTB Last administered on 05/12/18at 05:01; Admin Dose 30 MG; Start 05/07/18 at 06:00 Ondansetron HCl (Zofran Tab) 4 mg Q6H PRN GTB NAUSEA AND/OR VOMITING; Start 05/07/18 at 00:15 Multivitamins (Multivitamin) 30 ml DAILY GTB Last administered on 05/12/18at 08:50; Admin Dose 30 ML; Start 05/07/18 at 09:00 Epoetin Zen (Epogen (Esrd)) 20,000 units Tu@1700 SC ; Start 05/12/18 at 17:00 Norepinephrine 250 ml @ 1.875 mls/ hr TITRATE IV Last administered on 05/08/18 13:33; Admin Dose 33.75 MLS/HR; Start 05/08/18 at 03:00 Citric Acid/ Sodium Citrate (Bicitra) 30 ml Q8 PO Last administered on 05/12/18 14:23; Admin Dose 30 ML; Start 05/09/18 at 08:00 Phenylephrine HCl 80 mg/Dextrose 250 ml @ 18.75 mls/ hr TITRATE IV Last administered on 05/12/18 15:13; Admin Dose 33.75 MLS/HR; Start 05/09/18 at 12:30 Miscellaneous Information (Pending [facility] Order For Wound Care) This patient goldman... PRN PRN XX WOUND CARE; Start 05/09/18 at 17:00 Vancomycin HCl (Vancomycin Oral Syringe) 250 mg Q6 PO Last administered on 05/12at 11:34; Admin Dose 250 MG; Start 05/12/18 at 00:00 Metronidazole 100 ml @ 100 mls/hr Q8 IVPB Last administered on 3/26/19at 14:23; Admin Dose 100 MLS/HR; Start 05/11/18 at 20:00 Sodium Bicarbonate 150 meq/Dextrose 1,150 ml @ 75 mls/hr [id number] IV Last administered on 05/12/18at 10:07; Admin Dose 75 MLS/HR; Start 05/12/18 at 08:00 Collagenase (Santyl) 1 applic DAILY TOP ; Start 05/13/18 at 09:00 Evangelista Scanlon DO May 12, 2018 16:18
[2018-05-12] MEDS ORDERED: EPOETIN 10000 UNITS/1 ML INJ (ESRD) SC SCH (17:00)
--- NOTE | 2018-05-12 17:36 | PN ---
DATE: 05/12/2018 ADDENDUM: GOALS OF CARE: I called the patient's son, Johnson and discussed with him regarding the patient's wo rsening condition including impending respiratory failure and worsening renal failure. Code status w as explained and also a potential need for hemodialysis was also discussed in detail. He requested t hat patient remains full code and he was okay with hemodialysis if needed. According to him, the pat ient in the past has had short term hemodialysis. Subsequently, I notified Doctors Fausto and Leonardo rivas regarding her son's decision. Total time spent is approximately 30 minutes. Dictated By: ROLAND GIRON MD AB/NTS Conf#: [id number] DID#: [id number] CC: QUINTEN UMAÑA MD;*EndCC*
[2018-05-12] MEDS ORDERED: PROPOFOL 100 ML ONE (18:06)
--- NOTE | 2018-05-12 18:50 | EN ---
Date/Time of Note Date/Time of Note DATE: 05/12/18 TIME: 18:48 ER Progress Note I have been consulted to see the patient for intubation. Dr. Lambert had noted that the patient had had a gradual decline and not protecting airway. Family is agreeable to intubation and full code. On exam: General: Decreased responsiveness, respiratory distress Head: Normocephalic, atraumatic. Eyes: Pupils equally reactive, EOM intact ENT: Dry mucous membranes Neck: Supple, no lymphadenopathy Respiratory: Respiratory distress, rhonchi bilaterally Cardiovascular: Tachycardia, no murmurs, rubs, or gallops Abdominal: Non-protuberant : Deferred MSK: Limited movement of all 4 extremities, no bony abnormalities Neurologic: Limited exam, and encephalopathic, limited movement of all 4 extremities Skin: No rash, no significant breakdown Psych: Unable to assess Procedure(s): Intubation Note: Indication: Airway protection Consent: This was an emergent situation, implied consent was observed RSI Medications: Etomidate 20 mg, succinylcholine 100 mg Tube size: 7.5 Secured at: 23 Procedure: Endotracheal intubation was performed. The patient was preoxygenated with supplemental oxygen, the room was set up with emergency airway equipment including [id number], suction, and adjunct airways. Direct visualization of the cords was performed with direct laryngoscopy using [video laryngoscope] , insertion of the endotracheal tube through the cords was visualized. Bilateral breath sounds were auscultated, color change was observed. The tube was then secured in a postintubation chest x-ray was ordered. The patient tolerated the procedure well there were no complications. Chest x-ray: I reviewed and interpreted a 1 view of the chest Mediastinum: No enlargement Cardiac silhouette: No cardiomegaly Airspace: ET tube in good position. Bilateral interstitial process Bones: No evidence of fracture Assessment and plan: Patient presents with respiratory failure requiring intubation as documented above. The patient was successfully intubated. Further management by admitting team. Office Machine Technician notified. Diagnostic impression: Acute hypoxemic respiratory failure DEVAN TA MD May 12, 2018 18:50
[2018-05-12] MEDS: IPRATROPIUM (HFA) 12.9 GM INHALER INH SCH (20:00)
[2018-05-12] MEDS ORDERED: BALSAM PERU/CASTOR OIL 60 GM TUBE TOP SCH (21:00)
[2018-05-12] MEDS: PROPOFOL 100 ML IV SCH (21:02)
[2018-05-12] MEDS: BALSAM PERU/CASTOR OIL 60 GM TUBE TOP SCH (21:03)
[2018-05-12] MEDS: ALBUTEROL HFA 8 GM INHALER INH SCH (21:21)
[2018-05-13] VITALS (105 sets, daily range): BP systolic 57–140; BP diastolic 29–84; PULSE 89–122; RESP 16–26
[2018-05-13] MEDS: ALBUTEROL HFA 8 GM INHALER INH SCH ×4 (01:07→19:28)
[2018-05-13] MEDS: IPRATROPIUM (HFA) 12.9 GM INHALER INH SCH ×4 (01:09→19:28)
[2018-05-13] MEDS: PHENYLephrine 80 MG in DEXTROSE 5% 242 ML IV SCH ×4 (01:34→16:30)
[2018-05-13] MEDS: CITRIC ACID/NA CITRATE 30 ML CUP PO SCH ×3 (05:15→20:42)
[2018-05-13] MEDS: VANCOMYCIN HCL 250 MG/5ML POSYG PO SCH ×3 (05:15→17:42)
[2018-05-13] MEDS: LANSOPRAZOLE 30 MG CAP GTB SCH (05:15)
[2018-05-13] MEDS: metroNIDAZOLE 500 MG/NS (PMX) 100 ML IVPB SCH ×3 (05:19→20:41)
[2018-05-13] MEDS: PROPOFOL 100 ML IV SCH ×2 (05:20→20:45)
[2018-05-13] MEDS: BALSAM PERU/CASTOR OIL 60 GM TUBE TOP SCH ×2 (08:06→20:42)
[2018-05-13] MEDS: ASCORBIC ACID 500 MG TAB GTB SCH (08:06)
[2018-05-13] MEDS: ZINC SULFATE 220 MG CAP GTB SCH (08:06)
[2018-05-13] MEDS: MULTIVITAMINS 30 ML CUP GTB SCH (08:06)
--- NOTE | 2018-05-13 08:26 | PN ---
DATE: 05/13/2018 SUBJECTIVE: The patient remains critically ill. The patient was intubated overnight. The patient r emains on pressor support. Urinary output has been minimal, approximately 10 mL per hour. No other events noted. Please note I attempted to contact the patient's son yesterday to discuss possibility of hemodialysis. OBJECTIVE: VITAL SIGNS: Blood pressure 100/39, respirations 20, pulse 93, temperature 98.6. HEENT: Head is normocephalic. NECK: Supple. HEART: Regular rate. LUNGS: Show diminished breath sounds at the base. ABDOMEN: Soft, nontender to palpation. No rebound or guarding. EXTREMITIES: Negative for clubbing, cyanosis. Positive edema, diffuse anasarca. DERMATOLOGIC: No rashes. MUSCULOSKELETAL: No joint effusion. NEUROLOGIC: No change in exam. MEDICATIONS: Reviewed. LABORATORY DATA: Shows sodium 140, potassium 3.9, BUN 121, creatinine 2.53. White count is 17.2, he moglobin 8.3, platelet count is 240. IMAGING STUDY: The patient's chest x-ray was reviewed. Imaging studies reviewed. Chest x-ray shows worsening edema or infection. ASSESSMENT AND PLAN: 1. Oliguric acute kidney injury on top of chronic kidney disease with previous baseline creatinine o f 2.5 mg/dL. The patient's renal function has been stable, however, given the patient's low muscle m ass, the patient's creatinine is markedly overestimating patient's true EGFR. Additionally, the rosetta ent is grossly volume overloaded with minimal urinary output in the setting of shock. As a result, I will recommend hemodialysis. According to Dr. Eisenberg the patient's family and son has agreed for hemodialysis. We will attempt to contact the patient's son today if he agrees we will proceed with a Juan catheter placement and initiation of hemodialysis. Please note that the etiology of the pat ient's underlying acute kidney injury is secondary to sepsis and acute tubular necrosis. 2. Metabolic acidosis. Continue bicarbonate drip, anticipate hemodialysis once access is obtained. The patient will be dialyzed on a high bicarbonate bath. 3. Anemia. Monitor hemoglobin and hematocrit levels. 4. Mineral bone disorder, monitor calcium and phosphorus levels. 5. Volume overload. The patient has pulmonary congestion, diffuse anasarca. We will attempt ultraf iltration with dialysis if remains hemodynamically stable. 6. Septic shock secondary to urinary tract infection and pneumonia. Continue current antibiotic reg imen. Continue pressor support. 7. Tachyarrhythmia. Continue to monitor. 8. Ventilator-dependent respiratory failure. Vent settings and ABG was reviewed. Continue to monit or. 9. Dysphagia status post percutaneous endoscopic gastrostomy. 10. Acute encephalopathy, etiology is toxic metabolic. 11. Decompensated heart failure. We will continue medical management. We will attempt ultrafiltrat ion with dialysis. Please note I spent over 30 minutes of critical care time with this patient. Dictated By: JEANA BANSAL DO NR/NTS Conf#: [id number] DID#: [id number] CC: ROLAND EISENBERG MD; QUINTEN UMAÑA MD;*EndCC*
[2018-05-13] MEDS: COLLAGENASE 5 GM (UD JAR) TOP SCH (08:29)
[2018-05-13] MEDS ORDERED: PHENYLephrine 10 MG INJ ONE (11:01)
[2018-05-13] MEDS ORDERED: PHENYLephrine 80 MG in DEXTROSE 5% 242 ML IV SCH (11:30)
--- NOTE | 2018-05-13 11:49 | CONS ---
Consult Date/Type/Reason Admit Date/Time May 06, 2018 at 17:38 Initial Consult Date 05/10/18 Type of Consult Pulmonary Requesting Provider: ROLAND GIRON MD Date/Time of Note DATE: 05/13/18 TIME: 11:48 Subjective Increasing respiratory distress yesterday unable to protect airway requiring emergent intubation mechanical ventilation. Objective Vital Signs Date Temp Pulse Resp B/P (MAP) Pulse Ox O2 O2 Flow FiO2 Time Delivery Rate 05/13/18 98 22 121/49 09:30 (73) 05/13/18 100 50 09:30 05/13/18 Mechanical 09:00 Ventilator 05/13/18 98.1 08:00 05/12/18 4.0 17:00 Intake and Output 05/12/18 05/12/18 05/13/18 1515:00 23:00 07:00 IntakeIntake Total 1189.00 ml 1085.84 ml 1213.36 ml OutputOutput Total 255 ml 210 ml 190 ml BalanceBalance 934.00 ml 875.84 ml 1023.36 ml Exam GENERAL: Chronically ill-appearing lady VITAL SIGNS: per chart NECK: Supple. No JVD or lymphadenopathy. CARDIAC EXAM: S1, S2. No added sounds or murmurs. CHEST: Diminished air entry bilaterally with rales ABDOMEN: Soft, nontender. No guarding or rebound. EXTREMITIES: No cyanosis, clubbing edema +1 NEUROLOGIC: Unable to assess remains somnolent on mechanical ventilation. Vent Setting Ventilator Support Mode: AC Fraction of Inspired Oxygen pe: 50 Positive End Expiratory Pressu: 5.0 Results/Medications Result Diagram: 05/13/18 0430 05/13/18 0430 Results 24 hrs Laboratory Tests Test 05/12/18 19:20 05/12/18 22:30 05/13/18 04:30 Blood Gas Specimen Blood arterial Blood arterial Source Arterial Blood Date 05/12/2018 8:15:45 PM 05/12/2018 11:44:00 Drawn PM Arterial Blood pH 7.175 *L 7.204 *L (Temp corrected) Arterial Blood pCO2 50.5 H 51.1 H (Temp correct) Arterial Blood pO2 96.0 H 348.3 H (Temp corrected) Arterial Blood HCO3 18.2 L 19.7 L Arterial Blood Base -9.8 L -8.1 L Excess Arterial Blood 95.8 98.9 Oxygen Saturation Steven Test ACCEPTAB ACCEPTAB Arterial Blood Gas Right Radial Right Radial Puncture Site Arterial 0.8 0.2 Blood Carboxyhemoglob in Arterial Blood 0.3 0.3 Methemoglobin Blood Gas A-a O2 203.7 H 313.6 H Differential Oxyhemoglobin Percent 94.7 98.4 Blood Gas Temperature 37.0 37.0 Blood Gas Respiration 14.0 20.0 Rate Blood Gas Actual 17 20 Respiration Rate Blood Gas Modality VENT - AC VENT - AC FiO2 50.0 100.0 Blood Gas Tidal 450.0 500.0 Volume Blood Gas Low PEEP 5.0 5.0 Setting Blood Gas Inspiratory 15.0 28.0 Pressure Blood Gas Critical IHSAN RN Graciela MANZANO RN Value Read Back Blood Gas Notified MR SOTO Whom Blood Gas Notified 05/12/2018 8:24:09 PM 05/13/2018 12:00:00 Time AM White Blood Count 17.2 H Red Blood Count 2.49 L Hemoglobin 8.3 L Hematocrit 25.9 L Mean Corpuscular 104.0 H Volume Mean Corpuscular 33.3 H Hemoglobin Mean Corpuscular 32.0 Hemoglobin Concent Red Cell Distribution 17.5 H Width Platelet Count 240 Mean Platelet Volume 9.0 Immature Granulocytes 1.200 H % Neutrophils % Segmented Neutrophils 73 % (Manual) Band Neutrophils % 21 H (Manual) Lymphocytes % Lymphocytes % 3 L (Manual) Monocytes % Monocytes % (Manual) 1 Eosinophils % Eosinophils % 2 (Manual) Basophils % Nucleated Red Blood 0.0 Cells % Immature Granulocytes 0.210 H # Neutrophils # Neutrophils # 13.2 H (Manual) Band Neutrophils # 3.6 H Lymphocytes (Manual) 0.5 L Lymphocytes # Monocytes # Monocytes # (Manual) 0.1 L Eosinophils # Basophils # Nucleated Red Blood Cells # Platelet Estimate NORMAL Polychromasia 1+ Hypochromasia 2+ Anisocytosis 1+ Macrocytosis 1+ Sodium Level 140 Potassium Level 3.9 Chloride Level 105 Carbon Dioxide Level 21 Anion Gap 14 H Blood Urea Nitrogen 121 H Creatinine 2.53 H Est Glomerular Filtrat Rate mL/min Glucose Level 95 # Calcium Level 8.3 L Phosphorus Level 4.2 Magnesium Level 1.8 Medications Current Medications IV Flush (NS 10 ml) 10 ml PRN IV ; Start 05/06/18 at 20:30 Ascorbic Acid (Vitamin C) 500 mg DAILY GTB Last administered on 05/13/18 08:06; Admin Dose 500 MG; Start 05/07/18 at 09:00 Albuterol/ Ipratropium (Duoneb) 3 ml Q2H RESP THERAPY PRN HHN SHORTNESS OF BREATH; Start 05/06/18 at 23:30 Lorazepam (Ativan Intensol) 0.5 mg Q6H PRN PEG ANXIETY; Start 05/06/18 at 23:30 Zinc Sulfate (Zinc Sulfate) 220 mg DAILY GTB Last administered on 05/13/18 08:06; Admin Dose 220 MG; Start 05/07/18 at 09:00 Lansoprazole (Prevacid) 30 mg DAILY@06 GTB Last administered on 05/12/18 05:01; Admin Dose 30 MG; Start 05/07/18 at 06:00 Ondansetron HCl (Zofran Tab) 4 mg Q6H PRN GTB NAUSEA AND/OR VOMITING; Start 05/07/18 at 00:15 Multivitamins (Multivitamin) 30 ml DAILY GTB Last administered on 05/13/18 08:06; Admin Dose 30 ML; Start 05/07/18 at 09:00 Epoetin Zen (Epogen (Esrd)) 20,000 units Tu@1700 SC Last administered on 05/12/18 17:36; Admin Dose 20,000 UNITS; Start 05/12/18 at 17:00 Norepinephrine 250 ml @ 1.875 mls/ hr TITRATE IV Last administered on 05/08/18 13:33; Admin Dose 33.75 MLS/HR; Start 05/08/18 at 03:00 Citric Acid/ Sodium Citrate (Bicitra) 30 ml Q8 PO Last administered on 05/12/18 22:10; Admin Dose 30 ML; Start 05/09/18 at 08:00 Phenylephrine HCl 80 mg/Dextrose 250 ml @ 18.75 mls/ hr TITRATE IV Last administered on 05/13/18 11:09; Admin Dose 45 MLS/HR; Start 05/09/18 at 12:30 Miscellaneous Information (Pending Santyl Order For Wound Care) This patient goldman... PRN PRN XX WOUND CARE; Start 05/09/18 at 17:00 Vancomycin HCl (Vancomycin Oral Syringe) 250 mg Q6 PO Last administered on 3/26/19at 23:35; Admin Dose 250 MG; Start 05/12/18 at 00:00 Metronidazole 100 ml @ 100 mls/hr Q8 IVPB Last administered on 05/13/18at 05:19; Admin Dose 100 MLS/HR; Start 05/11/18 at 20:00 Sodium Bicarbonate 150 meq/Dextrose 1,150 ml @ 75 mls/hr [id number] IV Last administered on 05/12/18at 23:36; Admin Dose 75 MLS/HR; Start 05/12/18 at 08:00 Collagenase (Santyl) 1 applic DAILY TOP Last administered on 05/13/18at 08:29; Admin Dose 1 APPLIC; Start 05/13/18 at 09:00 Propofol 100 ml @ 2.64 mls/hr Q12H IV Last administered on 05/13/18at 05:20; Admin Dose 7.92 MLS/HR; Start 05/12/18 at 18:30 Albuterol (Ventolin Hfa) 4 puff Q6H RESP THERAPY INH Last administered on 05/13/18at 07:50; Admin Dose 4 PUFF; Start 05/12/18 at 20:00 Ipratropium [place] (Atrovent Hfa) 4 puff Q6H RESP THERAPY INH ; Start 05/12/18 at 20:00 Phenylephrine HCl 80 mg/Dextrose 250 ml @ 18.75 mls/ hr TITRATE IV ; Start 05/13/18 at 11:30; Status UNV Assessment/Plan Hospital Course (Demo Recall) IMP: 1. Status post septic Shock--2/2 urosepsis 2. Acute Renal Failure--likely non-oliguric ATN 3. Metabolic Acidosis--mostly 2/2 ARF 4. Encephalopathy--toxic-metabolic 2/2 infection and ARF, in addition to baseline 5. Anemia--r/o acute GIB 6. H/O abdominal abscess 7. Hypoxemic respiratory failure requiring intubation and mechanical ventilation. Of note patient had tracheostomy and was decannulated 1 month ago. Chest x-ray shows possible ARDS. RECS: 1. IV fluids per nephrology 2. Continue mechanical ventilation anticipate patient requiring tracheostomy given her chronic lung disease. 3. Abx as per ID 4. Follow mental status and gases, low threshold for intubation 5. Aspiration precautions pulmonary toilet 6. Monitor H&H post transfusion 7. Follow lactate 8. Renal recommendations Extremely poor prognosis. Consider family conference regarding goals of care. Critical care time 40 minutes. LAURA JENKINS MD, [facility] May 13, 2018 11:49
--- NOTE | 2018-05-13 13:42 | CONS ---
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 colonization of the airway by pseudomonas and ESBL+klebsiella - h/o possible, recurrent HCAP due to pseudomonas and ESBL+klebsiella - h/o recurrent HCAP due to MRSA and Enterobacter (culture of tracheal aspirate on 07/16/2017 that was collected at [facility]) . Pt took vancomycin and ceftazidime - h/o acute respiratory distress post-thoracentesis, resolved - h/o thoracentesis on 07/18/2017, transudative (protein <2, LDH 279) - h/o bleeding from the trach site - h/o septic shock due to pneumonia, ARDS, bacteremia, fungemia - h/o ARDS - h/o smoking - COPD - ILD # Cardiac - PAF, currently sinus tachycardia # GI - C diff colitis, diagnosed on 05/11/2018 - h/o intermittent diarrhea, Pt had multiple negative C. diff tests at [facility] at [facility] in the past - dysphagia - h/o PEG placement 06/13/2018 - protein calorie malnutrition - h/o coffee ground emesis/UGIB 12/23/2017 due to deep ulceration of distal esophagus and gastritis on EGD 12/26/2017. No e/o H. pylori - h/o possible appendicitis on CT on 11/22/2017, Pt took ertapenem (11/24/2017- 12/01/2017) - h/o extensive adhesions lower abdominal and pelvis between small bowel to each other and to colon and to abdominal wall, anterior pelvic wall chronic abscess secondary to probably an old perforated diverticulitis, torsion of small bowel around these dense adhesion causing multiple obstructive points - h/o laparoscopic exploration and extensive lysis of adhesions and drainage of anterior pelvic wall abscess 09/16/2017. Cultures were negative, no e/o malignancy. Pt took pip/tazo (09/16/2017-09/26/2017) - h/o partial obstruction mid jejunum in L anterior central pelvis with s uggestion of a 3 cm soft tissue mass on CT 08/28/2017 - h/o internal stomal deep ulcer behind the internal bumper, gastritis and esophagitis, Rodirguez's cannot be ruled out, per EGD with biopsy 07/23/2017 - h/o GIB s/p flex sig showed polyp; stool OB negative on 06/29/17 - h/o stool OB positive status - h/o SBO and ileus due to pain meds - h/o EGD and exchange of PEG on 09/01/2017 - h/o mildly elevated CEA # renal/ - recurrent NATHAN on CKD - 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 JADE Villareal requested that Claudia at [facility] test his strain of CRE against colistin, Avycaz, Zerbaxa, and Vabomere on 05/07/2018 - Hyponatremia - Hyperkalemia, now hypokalemia - Metabolic acidosis - adrenal insufficiency - h/o vaginal bleed - h/o colonization of urinary tract by ESBL+klebsiella, VRE - h/o recurrent, symptomatic UTI due to carbapenem-resistant kleb (MDR strain) per urine culture 10/04/17, 10/09/17, 10/21/2017, P took colistin (10/09/2017- 10/15/2017), fosfomycin for carbapenemase-producing klebsiella and VRE on 10/25/2017 and 10/28/2017 - h/o funguria - h/o urinary retention # fungemia, bacteremia - h/o bacteremia due to coag negative Staph, probable contaminant as her WBC level improved initially without antibiotic - 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 improved. Probable manifestation of endocarditis. Pt declined MRI on 08/06/2017 - h/o infection of R toes due to pseudomonas. coagulase negative Staph likely a colonizer. resolved - h/o intertrigo of the groin, resolved with nystatin powder - h/o scabies, locally crusted lesion over L scapula, s/p permethrin cream and pGT ivermectin on 08/11/2017, 08/12/2017, 08/19/2017. Repeat skin scraping on 08/21/2017 was negative for scabies # psych, neuro - acute toxic metabolic encephalopathy - decreased hearing b/l - h/o critical illness polyneuropathy - anxiety/depression, bipolar d/o, seen by Psychiatry in the past - chronic pain syndrome - medical non-compliance: she would refuse her medications, treatment and straight catheterization at times # hematological, vascular - chronic anemia requiring blood transfusion intermittently - Macrocytic anemia - 3.1 cm AAA on imaging - PVD recommendations: - ordered: blood culture x2, urinalysis and urine culture, tracheal aspirate culture, lactic acid - start renally dosed meropenem and linezolid for HCAP; no IV vancomycin due to acute on chronic renal disease - continue pGT vancomycin (05/11/2018-) and IV metronidazole (05/11/2018) for C diff colitis management d/w JAYANT Cummings the critical care time I took to care for this Pt today was from 1330 to 1400 Consultation Date/Type/Reason Admit Date/Time May 06, 2018 at 17:38 Initial Consult Date 05/10/18 Type of Consult ID Requesting Provider: ROLAND GIRON MD Date/Time of Note DATE: 05/13/18 TIME: 13:40 24 HR Interval Summary Subjective hx not possible: pt non-verbal, pt critical, pt critical status Exam/Review of Systems Exam Vitals Vital Signs Date Temp Pulse Resp B/P (MAP) Pulse Ox O2 O2 Flow FiO2 Time Delivery Rate 3/27/19 103 19 87/37 (54) 100 13:15 05/13/18 Mechanical 13:00 Ventilator 05/13/18 98.1 12:00 05/13/18 50 09:30 05/12/18 4.0 17:00 Intake and Output 05/12/18 05/12/18 05/13/18 1515:00 23:00 07:00 IntakeIntake Total 1189.00 ml 1085.84 ml 1213.36 ml OutputOutput Total 255 ml 210 ml 190 ml BalanceBalance 934.00 ml 875.84 ml 1023.36 ml Constitutional: non-verbal, frail Psych: confusion Head: normocephalic, atraumatic Eyes: nl conjunctiva, nl lids ENMT: nl external ears & nose, intubated, other (dry mucus membranes) Neck: other (s/p recannulation) Respiratory: crackles/rales, labored breathing, wheezing Cardiovascular: other (tachycardic and regular) Gastrointestinal: soft; No distended, No tender Genitourinary - Female: other (FC) Musculoskeletal: other (eschar on toes) Extremities: edema Neurological: confused, lethargic Skin: rash or lesions (scabs on the toes) Results Result Diagram: 05/13/18 0430 05/13/18 0430 Results 24hrs Laboratory Tests Test 05/12/18 19:20 05/12/18 22:30 05/13/18 04:30 05/13/18 12:00 Blood Gas Blood arterial Blood arterial Blood Specimen arterial Source Arterial Blood 05/12/2018 8:15: 05/12/2018 11:44 05/13/2018 12:5 Date Drawn 45 PM :00 PM 8:59 PM Arterial Blood 7.175 *L 7.204 *L 7.292 *L pH (Temp corrected ) Arterial Blood 50.5 H 51.1 H 47.3 H pCO2 (Temp correct) Arterial Blood 96.0 H 348.3 H 92.5 H pO2 (Temp corrected ) Arterial Blood 18.2 L 19.7 L 22.3 HCO3 Arterial Blood -9.8 L -8.1 L -4.1 L Base Excess Arterial Blood 95.8 98.9 96.2 Oxygen Saturati on Steven Test ACCEPTAB ACCEPTAB ACCEPTAB Arterial Blood Right Radial Right Radial Right Radial Gas Puncture Site Arterial 0.8 0.2 0.7 Blood Carboxyhe moglobin Arterial Blood 0.3 0.3 0.4 Methemoglobin Blood Gas A-a 203.7 H 313.6 H 210.8 H O2 Differential Oxyhemoglobin 94.7 98.4 95.1 Percent Blood Gas 37.0 37.0 37.0 Temperature Blood Gas 14.0 20.0 20.0 Respiration Rate Blood Gas 17 20 22 Actual Respiration Rat e Blood Gas VENT - AC VENT - AC VENT - AC Modality FiO2 50.0 100.0 50.0 Blood Gas Tidal 450.0 500.0 500.0 Volume Blood Gas Low 5.0 5.0 3.0 PEEP Setting Blood Gas 15.0 28.0 Inspiratory Pressure Blood Gas IHSAN KEARNEY RN Critical Value Read Back Blood Gas MR SOTO TM Notified Whom Blood Gas 05/12/2018 8:24: 05/13/2018 12:00 05/13/2018 1:26 Notified Time 09 PM :00 AM :57 PM White Blood 17.2 H Count Red Blood Count 2.49 L Hemoglobin 8.3 L Hematocrit 25.9 L Mean 104.0 H Corpuscular Volume Mean 33.3 H Corpuscular Hemoglobin Mean 32.0 Corpuscular Hemoglobin Conc ent Red Cell 17.5 H Distribution Width Platelet Count 240 Mean Platelet 9.0 Volume Immature 1.200 H Granulocytes % Neutrophils % Segmented 73 Neutrophils % (Manual) Band 21 H Neutrophils % (Manual) Lymphocytes % Lymphocytes % 3 L (Manual) Monocytes % Monocytes % 1 (Manual) Eosinophils % Eosinophils % 2 (Manual) Basophils % Nucleated Red 0.0 Blood Cells % Immature 0.210 H Granulocytes # Neutrophils # Neutrophils # 13.2 H (Manual) Band 3.6 H Neutrophils # Lymphocytes 0.5 L (Manual) Lymphocytes # Monocytes # Monocytes # 0.1 L (Manual) Eosinophils # Basophils # Nucleated Red Blood Cells # Platelet NORMAL Estimate Polychromasia 1+ Hypochromasia 2+ Anisocytosis 1+ Macrocytosis 1+ Sodium Level 140 Potassium Level 3.9 Chloride Level 105 Carbon Dioxide 21 Level Anion Gap 14 H Blood Urea 121 H Nitrogen Creatinine 2.53 H Est Glomerular Filtrat Rate mL/min Glucose Level 95 # Calcium Level 8.3 L Phosphorus 4.2 Level Magnesium Level 1.8 Medications Medication Current Medications IV Flush (NS 10 ml) 10 ml PRN IV ; Start 05/06/18 at 20:30 Ascorbic Acid (Vitamin C) 500 mg DAILY GTB Last administered on 05/13/18 08:06; Admin Dose 500 MG; Start 05/07/18 at 09:00 Albuterol/ Ipratropium (Duoneb) 3 ml Q2H RESP THERAPY PRN HHN SHORTNESS OF BREATH; Start 05/06/18 at 23:30 Lorazepam (Ativan Intensol) 0.5 mg Q6H PRN PEG ANXIETY; Start 05/06/18 at 23:30 Zinc Sulfate (Zinc Sulfate) 220 mg DAILY GTB Last administered on 05/13/18 08:06; Admin Dose 220 MG; Start 05/07/18 at 09:00 Lansoprazole (Prevacid) 30 mg DAILY@06 GTB Last administered on 05/12/18 05:01; Admin Dose 30 MG; Start 05/07/18 at 06:00 Ondansetron HCl (Zofran Tab) 4 mg Q6H PRN GTB NAUSEA AND/OR VOMITING; Start 05/07/18 at 00:15 Multivitamins (Multivitamin) 30 ml DAILY GTB Last administered on 05/13/18 08:06; Admin Dose 30 ML; Start 05/07/18 at 09:00 Epoetin Zen (Epogen (Esrd)) 20,000 units Tu@1700 SC Last administered on 05/12/18 17:36; Admin Dose 20,000 UNITS; Start 05/12/18 at 17:00 Norepinephrine 250 ml @ 1.875 mls/ hr TITRATE IV Last administered on 05/08/18 13:33; Admin Dose 33.75 MLS/HR; Start 05/08/18 at 03:00 Citric Acid/ Sodium Citrate (Bicitra) 30 ml Q8 PO Last administered on 05/12/18 22:10; Admin Dose 30 ML; Start 05/09/18 at 08:00 Phenylephrine HCl 80 mg/Dextrose 250 ml @ 18.75 mls/ hr TITRATE IV Last admin istered on 05/13/18 11:09; Admin Dose 45 MLS/HR; Start 05/09/18 at 12:30 [facility] This patient goldman... PRN PRN XX WOUND CARE; Start 05/09/18 at 17:00 Vancomycin HCl (Vancomycin Oral Syringe) 250 mg Q6 PO Last administered on 05/13/18at 11:45; Admin Dose 250 MG; Start 05/12/18 at 00:00 Metronidazole 100 ml @ 100 mls/hr Q8 IVPB Last administered on 05/13/18at 05:19; Admin Dose 100 MLS/HR; Start 05/11/18 at 20:00 Sodium Bicarbonate 150 meq/Dextrose 1,150 ml @ 75 mls/hr [id number] IV Last administered on 05/12/18at 23:36; Admin Dose 75 MLS/HR; Start 05/12/18 at 08:00 Collagenase (Santyl) 1 applic DAILY TOP Last administered on 05/13/18at 08:29; Admin Dose 1 APPLIC; Start 05/13/18 at 09:00 Propofol 100 ml @ 2.64 mls/hr Q12H IV Last administered on 05/13/18at 05:20; Admin Dose 7.92 MLS/HR; Start 05/12/18 at 18:30 Albuterol (Ventolin Hfa) 4 puff Q6H RESP THERAPY INH Last administered on 05/13/18at 07:50; Admin Dose 4 PUFF; Start 05/12/18 at 20:00 Ipratropium [place] (Atrovent Hfa) 4 puff Q6H RESP THERAPY INH ; Start 05/12/18 at 20:00 CELESTINE MURPHY M.D. May 13, 2018 13:42
--- NOTE | 2018-05-13 14:04 | CONS ---
Assessment/Plan Assessment/Plan Assessment/Plan (Daily) Interval hx: Tolerating tube feeds at 30cc/hr. G tube site is slightly reddened around opening but otherwise benign abd. No signs of GI bleeding per RN. On phenylephrine gtt 1. Malfunctioning gastrostomy tube. 2. Renal failure. 3. Sepsis. 4. Hyponatremia. 5. Chronic obstructive pulmonary disease. 6. Bipolar. 7. Paroxysmal atrial fibrillation. 8. Critical care myopathy. 9. Anemia of chronic disease. 10. Diastolic failure. 11. Elevated alk phos with h/o hepatic venous congestion seen on abd CT in 2018 12. C. difficile colitis PLAN: Continue vancomycin Increase feeding There is no evidence of GI bleeding and will start the patient on Pepcid We will stop PPI Consultation Date/Type/Reason Admit Date/Time May 06, 2018 at 17:38 Initial Consult Date 05/10/18 Requesting Provider: ROLAND GIRON MD Date/Time of Note DATE: 05/13/18 TIME: 14:02 24 HR Interval Summary Free Text/Dictation Went into respiratory failure requiring intubation. Continues to have diarrhea so feeding was reduced to 10 cc/h No residual Subjective hx not possible: pt critical Exam/Review of Systems Exam Vitals Vital Signs Date Temp Pulse Resp B/P (MAP) Pulse Ox O2 O2 Flow FiO2 Time Delivery Rate 05/13/18 103 19 87/37 (54) 100 13:15 05/13/18 Mechanical 13:00 Ventilator 05/13/18 98.1 12:00 05/13/18 50 09:30 05/12/18 4.0 17:00 Intake and Output 05/12/18 05/12/18 05/13/18 1515:00 23:00 07:00 IntakeIntake Total 1189.00 ml 1085.84 ml 1213.36 ml OutputOutput Total 255 ml 210 ml 190 ml BalanceBalance 934.00 ml 875.84 ml 1023.36 ml Eyes: nl conjunctiva Respiratory: diminished breath sounds Cardiovascular: regular rate and rhythm Results Result Diagram: 05/13/18 0430 05/13/18 0430 Results 24hrs Laboratory Tests Test 05/12/18 19:20 05/12/18 22:30 05/13/18 04:30 05/13/18 12:00 Blood Gas Blood arterial Blood arterial Blood Specimen arterial Source Arterial Blood 05/12/2018 8:15: 05/12/2018 11:44 05/13/2018 12:5 Date Drawn 45 PM :00 PM 8:59 PM Arterial Blood 7.175 *L 7.204 *L 7.292 *L pH (Temp corrected ) Arterial Blood 50.5 H 51.1 H 47.3 H pCO2 (Temp correct) Arterial Blood 96.0 H 348.3 H 92.5 H pO2 (Temp corrected ) Arterial Blood 18.2 L 19.7 L 22.3 HCO3 Arterial Blood -9.8 L -8.1 L -4.1 L Base Excess Arterial Blood 95.8 98.9 96.2 Oxygen Saturati on Steven Test ACCEPTAB ACCEPTAB ACCEPTAB Arterial Blood Right Radial Right Radial Right Radial Gas Puncture Site Arterial 0.8 0.2 0.7 Blood Carboxyhe moglobin Arterial Blood 0.3 0.3 0.4 Methemoglobin Blood Gas A-a 203.7 H 313.6 H 210.8 H O2 Differential Oxyhemoglobin 94.7 98.4 95.1 Percent Blood Gas 37.0 37.0 37.0 Temperature Blood Gas 14.0 20.0 20.0 Respiration Rate Blood Gas 17 20 22 Actual Respiration Rat e Blood Gas VENT - AC VENT - AC VENT - AC Modality FiO2 50.0 100.0 50.0 Blood Gas Tidal 450.0 500.0 500.0 Volume Blood Gas Low 5.0 5.0 3.0 PEEP Setting Blood Gas 15.0 28.0 Inspiratory Pressure Blood Gas IHSAN KEARNEY RN Critical Value Read Back Blood Gas MR BRITTANY TM Notified Whom Blood Gas 05/12/2018 8:24: 05/13/2018 12:00 05/13/2018 1:26 Notified Time 09 PM :00 AM :57 PM White Blood 17.2 H Count Red Blood Count 2.49 L Hemoglobin 8.3 L Hematocrit 25.9 L Mean 104.0 H Corpuscular Volume Mean 33.3 H Corpuscular Hemoglobin Mean 32.0 Corpuscular Hemoglobin Conc ent Red Cell 17.5 H Distribution Width Platelet Count 240 Mean Platelet 9.0 Volume Immature 1.200 H Granulocytes % Neutrophils % Segmented 73 Neutrophils % (Manual) Band 21 H Neutrophils % (Manual) Lymphocytes % Lymphocytes % 3 L (Manual) Monocytes % Monocytes % 1 (Manual) Eosinophils % Eosinophils % 2 (Manual) Basophils % Nucleated Red 0.0 Blood Cells % Immature 0.210 H Granulocytes # Neutrophils # Neutrophils # 13.2 H (Manual) Band 3.6 H Neutrophils # Lymphocytes 0.5 L (Manual) Lymphocytes # Monocytes # Monocytes # 0.1 L (Manual) Eosinophils # Basophils # Nucleated Red Blood Cells # Platelet NORMAL Estimate Polychromasia 1+ Hypochromasia 2+ Anisocytosis 1+ Macrocytosis 1+ Sodium Level 140 Potassium Level 3.9 Chloride Level 105 Carbon Dioxide 21 Level Anion Gap 14 H Blood Urea 121 H Nitrogen Creatinine 2.53 H Est Glomerular Filtrat Rate mL/min Glucose Level 95 # Calcium Level 8.3 L Phosphorus 4.2 Level Magnesium Level 1.8 Medications Medication Current Medications IV Flush (NS 10 ml) 10 ml PRN IV ; Start 05/06/18 at 20:30 Ascorbic Acid (Vitamin C) 500 mg DAILY GTB Last administered on 05/13/18 08:06; Admin Dose 500 MG; Start 05/07/18 at 09:00 Albuterol/ Ipratropium (Duoneb) 3 ml Q2H RESP THERAPY PRN HHN SHORTNESS OF BREATH; Start 05/06/18 at 23:30 Lorazepam (Ativan Intensol) 0.5 mg Q6H PRN PEG ANXIETY; Start 05/06/18 at 23:30 Zinc Sulfate (Zinc Sulfate) 220 mg DAILY GTB Last administered on 05/13/18at 08:06; Admin Dose 220 MG; Start 05/07/18 at 09:00 Lansoprazole (Prevacid) 30 mg DAILY@06 GTB Last administered on 05/12/18at 05:01; Admin Dose 30 MG; Start 05/07/18 at 06:00 Ondansetron HCl (Zofran Tab) 4 mg Q6H PRN GTB NAUSEA AND/OR VOMITING; Start 05/07/18 at 00:15 Multivitamins (Multivitamin) 30 ml DAILY GTB Last administered on 05/13/18at 08:06; Admin Dose 30 ML; Start 05/07/18 at 09:00 Epoetin Zen (Epogen (Esrd)) 20,000 units Tu@1700 SC Last administered on 05/12/18at 17:36; Admin Dose 20,000 UNITS; Start 05/12/18 at 17:00 Norepinephrine 250 ml @ 1.875 mls/ hr TITRATE IV Last administered on 05/08/18 13:33; Admin Dose 33.75 MLS/HR; Start 05/08/18 at 03:00 Citric Acid/ Sodium Citrate (Bicitra) 30 ml Q8 PO Last administered on 05/12/18 22:10; Admin Dose 30 ML; Start 05/09/18 at 08:00 Phenylephrine HCl 80 mg/Dextrose 250 ml @ 18.75 mls/ hr TITRATE IV Last administered on 05/13/18 11:09; Admin Dose 45 MLS/HR; Start 05/09/18 at 12:30 Miscellaneous Information (Pending Santyl Order For Wound Care) This patient goldman... PRN PRN XX WOUND CARE; Start 05/09/18 at 17:00 Vancomycin HCl (Vancomycin Oral Syringe) 250 mg Q6 PO Last administered on 05/13/18 11:45; Admin Dose 250 MG; Start 05/12/18 at 00:00 Metronidazole 100 ml @ 100 mls/hr Q8 IVPB Last administered on 05/13/18 05:19; Admin Dose 100 MLS/HR; Start 05/11/18 at 20:00 Sodium Bicarbonate 150 meq/Dextrose 1,150 ml @ 75 mls/hr [id number] IV Last administered on 05/12/18 23:36; Admin Dose 75 MLS/HR; Start 05/12/18 at 08:00 Collagenase (Santyl) 1 applic DAILY TOP Last administered on 05/13/18 08:29; Admin Dose 1 APPLIC; Start 05/13/18 at 09:00 Propofol 100 ml @ 2.64 mls/hr Q12H IV Last administered on 05/13/18 05:20; Admin Dose 7.92 MLS/HR; Start 05/12/18 at 18:30 Albuterol (Ventolin Hfa) 4 puff Q6H RESP THERAPY INH Last administered on 05/13/18 13:41; Admin Dose 4 PUFF; Start 05/12/18 at 20:00 Ipratropium [place] (Atrovent Hfa) 4 puff Q6H RESP THERAPY INH Last administered on 05/13/18 13:41; Admin Dose 4 PUFF; Start 05/12/18 at 20:00 QUINTEN UMAÑA MD May 13, 2018 14:04
--- NOTE | 2018-05-13 14:18 | CONS ---
Assessment/Plan Assessment/Plan Hospital Course (Demo Recall) Septic as well as hemorrhagic shock Hypotension on IV pressor Acute respiratory failure status post intubation Acute blood loss anemia History of respiratory failure status post decannulation Preserved ejection fraction echocardiogram 05/10/2018 Paroxysmal atrial fibrillation, currently sinus rhythm Acute kidney injury -Patient has been intubated yesterday, vent management as per pulmonary -Titrate IV pressor to maintain SBP greater than 90 and/or map above 60. IV pressor requirements have been decreasing since this morning -IV fluids as per renal we will close monitor respiratory status -Hold all antihypertensives and nephrotoxic medications -Antibiotics as per infectious disease -Greater than 33 minutes of critical care time taken in the care of this patient Consultation Date/Type/Reason Admit Date/Time May 06, 2018 at 17:38 Initial Consult Date 05/10/18 Type of Consult Cardiology Requesting Provider: ROLAND GIRON MD Date/Time of Note DATE: 05/13/18 TIME: 14:16 24 HR Interval Summary Free Text/Dictation Patient seen and examined. Intubated yesterday, remains on IV pressors Exam/Review of Systems Vital Signs Vitals Vital Signs Date Temp Pulse Resp B/P (MAP) Pulse Ox O2 O2 Flow FiO2 Time Delivery Rate 05/13/18 103 19 87/37 (54) 100 13:15 05/13/18 Mechanical 13:00 Ventilator 05/13/18 98.1 12:00 05/13/18 50 09:30 05/12/18 4.0 17:00 Intake and Output 05/12/18 05/12/18 05/13/18 1515:00 23:00 07:00 IntakeIntake Total 1189.00 ml 1085.84 ml 1213.36 ml OutputOutput Total 255 ml 210 ml 190 ml BalanceBalance 934.00 ml 875.84 ml 1023.36 ml Exam Exam Intubated, no apparent distress, no response to verbal stimuli Head: normocephalic ENMT: intubated Respiratory: other (Coarse breath sounds bilaterally, scattered crackles) Cardiovascular: regular rate and rhythm (S1-S2 heard) Gastrointestinal: soft, bowel sounds, other (No grimacing with palpation) Genitourinary - Female: other (Garza present) Extremities: edema Labs Result Diagram: 05/13/1842905/13/18 043 Results 24hrs Laboratory Tests Test 05/12/18 19:20 05/12/18 22:30 05/13/18 04:30 05/13/18 12:00 Blood Gas Blood arterial Blood arterial Blood Specimen arterial Source Arterial Blood 05/12/2018 8:15: 05/12/2018 11:44 05/13/2018 12:5 Date Drawn 45 PM :00 PM 8:59 PM Arterial Blood 7.175 *L 7.204 *L 7.292 *L pH (Temp corrected ) Arterial Blood 50.5 H 51.1 H 47.3 H pCO2 (Temp correct) Arterial Blood 96.0 H 348.3 H 92.5 H pO2 (Temp corrected ) Arterial Blood 18.2 L 19.7 L 22.3 HCO3 Arterial Blood -9.8 L -8.1 L -4.1 L Base Excess Arterial Blood 95.8 98.9 96.2 Oxygen Saturati on Steven Test ACCEPTAB ACCEPTAB ACCEPTAB Arterial Blood Right Radial Right Radial Right Radial Gas Puncture Site Arterial 0.8 0.2 0.7 Blood Carboxyhe moglobin Arterial Blood 0.3 0.3 0.4 Methemoglobin Blood Gas A-a 203.7 H 313.6 H 210.8 H O2 Differential Oxyhemoglobin 94.7 98.4 95.1 Percent Blood Gas 37.0 37.0 37.0 Temperature Blood Gas 14.0 20.0 20.0 Respiration Rate Blood Gas 17 20 22 Actual Respiration Rat e Blood Gas VENT - AC VENT - AC VENT - AC Modality FiO2 50.0 100.0 50.0 Blood Gas Tidal 450.0 500.0 500.0 Volume Blood Gas Low 5.0 5.0 3.0 PEEP Setting Blood Gas 15.0 28.0 Inspiratory Pressure Blood Gas IHSAN KEARNEY RN Critical Value Read Back Blood Gas MR SOTO TM Notified Whom Blood Gas 05/12/2018 8:24: 05/13/2018 12:00 05/13/2018 1:26 Notified Time 09 PM :00 AM :57 PM White Blood 17.2 H Count Red Blood Count 2.49 L Hemoglobin 8.3 L Hematocrit 25.9 L Mean 104.0 H Corpuscular Volume Mean 33.3 H Corpuscular Hemoglobin Mean 32.0 Corpuscular Hemoglobin Conc ent Red Cell 17.5 H Distribution Width Platelet Count 240 Mean Platelet 9.0 Volume Immature 1.200 H Granulocytes % Neutrophils % Segmented 73 Neutrophils % (Manual) Band 21 H Neutrophils % (Manual) Lymphocytes % Lymphocytes % 3 L (Manual) Monocytes % Monocytes % 1 (Manual) Eosinophils % Eosinophils % 2 (Manual) Basophils % Nucleated Red 0.0 Blood Cells % Immature 0.210 H Granulocytes # Neutrophils # Neutrophils # 13.2 H (Manual) Band 3.6 H Neutrophils # Lymphocytes 0.5 L (Manual) Lymphocytes # Monocytes # Monocytes # 0.1 L (Manual) Eosinophils # Basophils # Nucleated Red Blood Cells # Platelet NORMAL Estimate Polychromasia 1+ Hypochromasia 2+ Anisocytosis 1+ Macrocytosis 1+ Sodium Level 140 Potassium Level 3.9 Chloride Level 105 Carbon Dioxide 21 Level Anion Gap 14 H Blood Urea 121 H Nitrogen Creatinine 2.53 H Est Glomerular Filtrat Rate mL/min Glucose Level 95 # Calcium Level 8.3 L Phosphorus 4.2 Level Magnesium Level 1.8 Medications Medications Current Medications IV Flush (NS 10 ml) 10 ml PRN IV ; Start 05/06/18 at 20:30 Ascorbic Acid (Vitamin C) 500 mg DAILY GTB Last administered on 05/13/18at 08:06; Admin Dose 500 MG; Start 05/07/18 at 09:00 Albuterol/ Ipratropium (Duoneb) 3 ml Q2H RESP THERAPY PRN HHN SHORTNESS OF BREATH; Start 05/06/18 at 23:30 Lorazepam (Ativan Intensol) 0.5 mg Q6H PRN PEG ANXIETY; Start 05/06/18 at 23:30 Zinc Sulfate (Zinc Sulfate) 220 mg DAILY GTB Last administered on 05/13/18at 08:06; Admin Dose 220 MG; Start 05/07/18 at 09:00 Ondansetron HCl (Zofran Tab) 4 mg Q6H PRN GTB NAUSEA AND/OR VOMITING; Start 05/07/18 at 00:15 Multivitamins (Multivitamin) 30 ml DAILY GTB Last administered on 05/13/18at 08:06; Admin Dose 30 ML; Start 05/07/18 at 09:00 Epoetin Zen (Epogen (Esrd)) 20,000 units Tu@1700 SC Last administered on 05/12/18at 17:36; Admin Dose 20,000 UNITS; Start 05/12/18 at 17:00 Norepinephrine 250 ml @ 1.875 mls/ hr TITRATE IV Last administered on 05/08/18 13:33; Admin Dose 33.75 MLS/HR; Start 05/08/18 at 03:00 Citric Acid/ Sodium Citrate (Bicitra) 30 ml Q8 PO Last administered on 05/12/18 22:10; Admin Dose 30 ML; Start 05/09/18 at 08:00 Phenylephrine HCl 80 mg/Dextrose 250 ml @ 18.75 mls/ hr TITRATE IV Last admini stered on 05/13/18 11:09; Admin Dose 45 MLS/HR; Start 05/09/18 at 12:30 Miscellaneous Information (Pending Santyl Order For Wound Care) This patient goldman... PRN PRN XX WOUND CARE; Start 05/09/18 at 17:00 Vancomycin HCl (Vancomycin Oral Syringe) 250 mg Q6 PO Last administered on 05/13/18 11:45; Admin Dose 250 MG; Start 05/12/18 at 00:00 Metronidazole 100 ml @ 100 mls/hr Q8 IVPB Last administered on 05/13/18 05:19; Admin Dose 100 MLS/HR; Start 05/11/18 at 20:00 Sodium Bicarbonate 150 meq/Dextrose 1,150 ml @ 75 mls/hr [id number] IV Last administered on 05/12/18 23:36; Admin Dose 75 MLS/HR; Start 05/12/18 at 08:00 Collagenase (Santyl) 1 applic DAILY TOP Last administered on 05/13/18 08:29; Admin Dose 1 APPLIC; Start 05/13/18 at 09:00 Propofol 100 ml @ 2.64 mls/hr Q12H IV Last administered on 05/13/18 05:20; Admin Dose 7.92 MLS/HR; Start 05/12/18 at 18:30 Albuterol (Ventolin Hfa) 4 puff Q6H RESP THERAPY INH Last administered on 05/13/18 13:41; Admin Dose 4 PUFF; Start 05/12/18 at 20:00 Ipratropium [place] (Atrovent Hfa) 4 puff Q6H RESP THERAPY INH Last administered on 05/13/18 13:41; Admin Dose 4 PUFF; Start 05/12/18 at 20:00 Meropenem/Sodium Chloride 50 ml @ 100 mls/hr Q12 IVPB ; Start 05/13/18 at 21:00; Status UNV Linezolid 300 ml @ 300 mls/hr Q12 IVPB ; Start 05/13/18 at 14:30 Evangelista Scanlon DO May 13, 2018 14:18
--- NOTE | 2018-05-13 14:54 | PN ---
Date/Time of Note Date/Time of Note DATE: 05/13/18 TIME: 14:46 Assessment/Plan VTE Prophylaxis Risk score (from [facility]0 risk: 12 SCD applied (from [facility]): Yes Pharmacological prophylaxis: NA/contraindicated Pharm contraindication: bleeding, renal impairment Lines/Catheters IV Catheter Type (from [facility]): PICC Line Central line still needed: Yes Urinary Cath still in place: Yes Reason Cath still needed: urinary retention Assessment/Plan Hospital Course Patient was intubated and placed on mechanical ventilation for acute respiratory failure, patient is currently on propofol drip for sedation and Earnest-Synephrine drip for hemodynamic support. Assessment/Plan -Acute respiratory failure requiring intubation and ventilatory support. Dr. Lambert is following in pulmonology consultation. -Septic shock secondary to urinary tract infection, anterior neck soft tissue infection, and C. difficile colitis. Continue pressors for hemodynamic support, IV fluids, antibiotics per ID. Dr. Black is following in infection disease consultation. -Acute kidney injury on chronic kidney disease. Plan for initiating hemodialysis. Dr. Mckeon is following in nephrology consultation. -Metabolic acidosis -Acute diastolic congestive heart failure. Dr. Scanlon is following in cardiology consultation. -Paroxysmal atrial fibrillation, remains sinus rhythm -COPD -Dysphagia with PEG. -G-tube mild malfunction, changed by GI Dr. Carolina is following in gastroenterology consultation. -Obesity Critical care time spent is 30 minutes. Further recommendations based on clinical course. Plan of care discussed with Dr. Eisenberg. Result Diagram: 05/13/18 0430 05/13/18 0430 Results 24hrs Laboratory Tests Test 05/12/18 19:20 05/12/18 22:30 05/13/18 04:30 05/13/18 12:00 Blood Gas Blood arterial Blood arterial Blood Specimen arterial Source Arterial Blood 05/12/2018 8:15: 05/12/2018 11:44 05/13/2018 12:5 Date Drawn 45 PM :00 PM 8:59 PM Arterial Blood 7.175 *L 7.204 *L 7.292 *L pH (Temp corrected ) Arterial Blood 50.5 H 51.1 H 47.3 H pCO2 (Temp correct) Arterial Blood 96.0 H 348.3 H 92.5 H pO2 (Temp corrected ) Arterial Blood 18.2 L 19.7 L 22.3 HCO3 Arterial Blood -9.8 L -8.1 L -4.1 L Base Excess Arterial Blood 95.8 98.9 96.2 Oxygen Saturati on Steven Test ACCEPTAB ACCEPTAB ACCEPTAB Arterial Blood Right Radial Right Radial Right Radial Gas Puncture Site Arterial 0.8 0.2 0.7 Blood Carboxyhe moglobin Arterial Blood 0.3 0.3 0.4 Methemoglobin Blood Gas A-a 203.7 H 313.6 H 210.8 H O2 Differential Oxyhemoglobin 94.7 98.4 95.1 Percent Blood Gas 37.0 37.0 37.0 Temperature Blood Gas 14.0 20.0 20.0 Respiration Rate Blood Gas 17 20 22 Actual Respiration Rat e Blood Gas VENT - AC VENT - AC VENT - AC Modality FiO2 50.0 100.0 50.0 Blood Gas Tidal 450.0 500.0 500.0 Volume Blood Gas Low 5.0 5.0 3.0 PEEP Setting Blood Gas 15.0 28.0 Inspiratory Pressure Blood Gas IHSAN KEARNEY RN Critical Value Read Back Blood Gas MR SOTO TM Notified Whom Blood Gas 05/12/2018 8:24: 05/13/2018 12:00 05/13/2018 1:26 Notified Time 09 PM :00 AM :57 PM White Blood 17.2 H Count Red Blood Count 2.49 L Hemoglobin 8.3 L Hematocrit 25.9 L Mean 104.0 H Corpuscular Volume Mean 33.3 H Corpuscular Hemoglobin Mean 32.0 Corpuscular Hemoglobin Conc ent Red Cell 17.5 H Distribution Width Platelet Count 240 Mean Platelet 9.0 Volume Immature 1.200 H Granulocytes % Neutrophils % Segmented 73 Neutrophils % (Manual) Band 21 H Neutrophils % (Manual) Lymphocytes % Lymphocytes % 3 L (Manual) Monocytes % Monocytes % 1 (Manual) Eosinophils % Eosinophils % 2 (Manual) Basophils % Nucleated Red 0.0 Blood Cells % Immature 0.210 H Granulocytes # Neutrophils # Neutrophils # 13.2 H (Manual) Band 3.6 H Neutrophils # Lymphocytes 0.5 L (Manual) Lymphocytes # Monocytes # Monocytes # 0.1 L (Manual) Eosinophils # Basophils # Nucleated Red Blood Cells # Platelet NORMAL Estimate Polychromasia 1+ Hypochromasia 2+ Anisocytosis 1+ Macrocytosis 1+ Sodium Level 140 Potassium Level 3.9 Chloride Level 105 Carbon Dioxide 21 Level Anion Gap 14 H Blood Urea 121 H Nitrogen Creatinine 2.53 H Est Glomerular Filtrat Rate mL/min Glucose Level 95 # Calcium Level 8.3 L Phosphorus 4.2 Level Magnesium Level 1.8 Exam/Review of Systems Exam Vitals Vital Signs Date Temp Pulse Resp B/P (MAP) Pulse Ox O2 O2 Flow FiO2 Time Delivery Rate 05/13/18 101 20 96 50 13:41 05/13/18 87/37 (54) 13:15 05/13/18 Mechanical 13:00 Ventilator 05/13/18 98.1 12:00 05/12/18 4.0 17:00 Intake and Output 05/12/18 05/12/18 05/13/18 1515:00 23:00 07:00 IntakeIntake Total 1189.00 ml 1085.84 ml 1213.36 ml OutputOutput Total 255 ml 210 ml 190 ml BalanceBalance 934.00 ml 875.84 ml 1023.36 ml Exam Constitutional: frail, orally intubated Respiratory: diminished breath sounds Cardiovascular: regular rate and rhythm Gastrointestinal: soft, tender, other (G-tube) Musculoskeletal: nl extremities to inspection Extremities: normal pulses Neurological: sedated Results Results 24hrs Laboratory Tests Test 05/12/18 19:20 05/12/18 22:30 05/13/18 04:30 05/13/18 12:00 Blood Gas Blood arterial Blood arterial Blood Specimen arterial Source Arterial Blood 05/12/2018 8:15: 05/12/2018 11:44 05/13/2018 12:5 Date Drawn 45 PM :00 PM 8:59 PM Arterial Blood 7.175 *L 7.204 *L 7.292 *L pH (Temp corrected ) Arterial Blood 50.5 H 51.1 H 47.3 H pCO2 (Temp correct) Arterial Blood 96.0 H 348.3 H 92.5 H pO2 (Temp corrected ) Arterial Blood 18.2 L 19.7 L 22.3 HCO3 Arterial Blood -9.8 L -8.1 L -4.1 L Base Excess Arterial Blood 95.8 98.9 96.2 Oxygen Saturati on Steven Test ACCEPTAB ACCEPTAB ACCEPTAB Arterial Blood Right Radial Right Radial Right Radial Gas Puncture Site Arterial 0.8 0.2 0.7 Blood Carboxyhe moglobin Arterial Blood 0.3 0.3 0.4 Methemoglobin Blood Gas A-a 203.7 H 313.6 H 210.8 H O2 Differential Oxyhemoglobin 94.7 98.4 95.1 Percent Blood Gas 37.0 37.0 37.0 Temperature Blood Gas 14.0 20.0 20.0 Respiration Rate Blood Gas 17 20 22 Actual Respiration Rat e Blood Gas VENT - AC VENT - AC VENT - AC Modality FiO2 50.0 100.0 50.0 Blood Gas Tidal 450.0 500.0 500.0 Volume Blood Gas Low 5.0 5.0 3.0 PEEP Setting Blood Gas 15.0 28.0 Inspiratory Pressure Blood Gas IHSAN RN Graciela MANZANO RN CAIO SABA Critical Value Read Back Blood Gas MR SOTO TM Notified Whom Blood Gas 05/12/2018 8:24: 05/13/2018 12:00 05/13/2018 1:26 Notified Time 09 PM :00 AM :57 PM White Blood 17.2 H Count Red Blood Count 2.49 L Hemoglobin 8.3 L Hematocrit 25.9 L Mean 104.0 H Corpuscular Volume Mean 33.3 H Corpuscular Hemoglobin Mean 32.0 Corpuscular Hemoglobin Conc ent Red Cell 17.5 H Distribution Width Platelet Count 240 Mean Platelet 9.0 Volume Immature 1.200 H Granulocytes % Neutrophils % Segmented 73 Neutrophils % (Manual) Band 21 H Neutrophils % (Manual) Lymphocytes % Lymphocytes % 3 L (Manual) Monocytes % Monocytes % 1 (Manual) Eosinophils % Eosinophils % 2 (Manual) Basophils % Nucleated Red 0.0 Blood Cells % Immature 0.210 H Granulocytes # Neutrophils # Neutrophils # 13.2 H (Manual) Band 3.6 H Neutrophils # Lymphocytes 0.5 L (Manual) Lymphocytes # Monocytes # Monocytes # 0.1 L (Manual) Eosinophils # Basophils # Nucleated Red Blood Cells # Platelet NORMAL Estimate Polychromasia 1+ Hypochromasia 2+ Anisocytosis 1+ Macrocytosis 1+ Sodium Level 140 Potassium Level 3.9 Chloride Level 105 Carbon Dioxide 21 Level Anion Gap 14 H Blood Urea 121 H Nitrogen Creatinine 2.53 H Est Glomerular Filtrat Rate mL/min Glucose Level 95 # Calcium Level 8.3 L Phosphorus 4.2 Level Magnesium Level 1.8 Medications Medication Current Medications IV Flush (NS 10 ml) 10 ml PRN IV ; Start 05/06/18 at 20:30 Ascorbic Acid (Vitamin C) 500 mg DAILY GTB Last administered on 05/13/18 08:06; Admin Dose 500 MG; Start 05/07/18 at 09:00 Albuterol/ Ipratropium (Duoneb) 3 ml Q2H RESP THERAPY PRN HHN SHORTNESS OF BREATH; Start 05/06/18 at 23:30 Lorazepam (Ativan Intensol) 0.5 mg Q6H PRN PEG ANXIETY; Start 05/06/18 at 23:30 Zinc Sulfate (Zinc Sulfate) 220 mg DAILY GTB Last administered on 05/13/18 08:06; Admin Dose 220 MG; Start 05/07/18 at 09:00 Ondansetron HCl (Zofran Tab) 4 mg Q6H PRN GTB NAUSEA AND/OR VOMITING; Start 05/07/18 at 00:15 Multivitamins (Multivitamin) 30 ml DAILY GTB Last administered on 05/13/18 08:06; Admin Dose 30 ML; Start 05/07/18 at 09:00 Epoetin Zen (Epogen (Esrd)) 20,000 units Tu@1700 SC Last administered on 17:36; Admin Dose 20,000 UNITS; Start 05/12/18 at 17:00 Norepinephrine 250 ml @ 1.875 mls/ hr TITRATE IV Last administered on 05/08/18 13:33; Admin Dose 33.75 MLS/HR; Start 05/08/18 at 03:00 Citric Acid/ Sodium Citrate (Bicitra) 30 ml Q8 PO Last administered on 05/13/18 14:31; Admin Dose 30 ML; Start 05/09/18 at 08:00 Phenylephrine HCl 80 mg/Dextrose 250 ml @ 18.75 mls/ hr TITRATE IV Last administered on 05/13/18 11:09; Admin Dose 45 MLS/HR; Start 05/09/18 at 12:30 [facility] This patient goldman... PRN PRN XX WOUND CARE; Start 05/09/18 at 17:00 Vancomycin HCl (Vancomycin Oral Syringe) 250 mg Q6 PO Last administered on 05/13/18 11:45; Admin Dose 250 MG; Start 05/12/18 at 00:00 Metronidazole 100 ml @ 100 mls/hr Q8 IVPB Last administered on 3/27/19at 14:31; Admin Dose 100 MLS/HR; Start 05/11/18 at 20:00 Sodium Bicarbonate 150 meq/Dextrose 1,150 ml @ 75 mls/hr [id number] IV Last administered on 05/12/18 23:36; Admin Dose 75 MLS/HR; Start 05/12/18 at 08:00 Collagenase (Santyl) 1 applic DAILY TOP Last administered on 05/13/18 08:29; Admin Dose 1 APPLIC; Start 05/13/18 at 09:00 Propofol 100 ml @ 2.64 mls/hr Q12H IV Last administered on 05/13/18 05:20; Admin Dose 7.92 MLS/HR; Start 05/12/18 at 18:30 Albuterol (Ventolin Hfa) 4 puff Q6H RESP THERAPY INH Last administered on 05/13/18 13:41; Admin Dose 4 PUFF; Start 05/12/18 at 20:00 Ipratropium [place] (Atrovent Hfa) 4 puff Q6H RESP THERAPY INH Last adminis tered on 05/13/18 13:41; Admin Dose 4 PUFF; Start 05/12/18 at 20:00 Meropenem/Sodium Chloride 50 ml @ 100 mls/hr Q12 IVPB ; Start 05/13/18 at 21:00 Linezolid 300 ml @ 300 mls/hr Q12 IVPB ; Start 05/13/18 at 14:30 GRISELDA DENNIS May 13, 2018 14:54
[2018-05-13] MEDS: SODIUM BICARBONATE (IV ADD) 150 MEQ in DEXTROSE 5% 1,000 ML IV SCH (15:48)
[2018-05-13] MEDS: LINEZOLID 600 MG/300 ML (PMX) 300 ML IVPB SCH ×2 (15:48→20:41)
[2018-05-13] MEDS: MEROPENEM 500MG/50 ML (PMX) 50 ML IVPB SCH (20:41)
[2018-05-14] VITALS (97 sets, daily range): BP systolic 89–171; BP diastolic 39–147; PULSE 73–117; RESP 0–31
[2018-05-14] MEDS: VANCOMYCIN HCL 250 MG/5ML POSYG PO SCH ×5 (00:03→23:25)
[2018-05-14] MEDS: PHENYLephrine 80 MG in DEXTROSE 5% 242 ML IV SCH (01:05)
[2018-05-14] MEDS: ALBUTEROL HFA 8 GM INHALER INH SCH ×4 (01:06→19:37)
[2018-05-14] MEDS: IPRATROPIUM (HFA) 12.9 GM INHALER INH SCH ×4 (01:06→19:37)
[2018-05-14] MEDS: CITRIC ACID/NA CITRATE 30 ML CUP PO SCH ×3 (05:30→22:30)
[2018-05-14] MEDS: SODIUM BICARBONATE (IV ADD) 150 MEQ in DEXTROSE 5% 1,000 ML IV SCH ×2 (05:31→06:42)
[2018-05-14] MEDS: metroNIDAZOLE 500 MG/NS (PMX) 100 ML IVPB SCH ×3 (05:31→22:30)
[2018-05-14] MEDS: PROPOFOL 100 ML IV SCH ×2 (06:42→13:07)
[2018-05-14] MEDS: LINEZOLID 600 MG/300 ML (PMX) 300 ML IVPB SCH ×2 (07:56→20:59)
[2018-05-14] MEDS: BALSAM PERU/CASTOR OIL 60 GM TUBE TOP SCH ×2 (07:57→22:34)
[2018-05-14] MEDS: ASCORBIC ACID 500 MG TAB GTB SCH (07:57)
[2018-05-14] MEDS: COLLAGENASE 5 GM (UD JAR) TOP SCH (07:57)
[2018-05-14] MEDS: MULTIVITAMINS 30 ML CUP GTB SCH (07:57)
[2018-05-14] MEDS: ZINC SULFATE 220 MG CAP GTB SCH (07:57)
[2018-05-14] MEDS ORDERED: MAGNESIUM SULFATE 2 GM/50 ML 50 ML IVPB ONE (08:30)
--- NOTE | 2018-05-14 08:43 | PN ---
DATE: 05/14/2018 SUBJECTIVE: The patient remains critically ill on pressor support, on full ventilatory support. The patient's urinary output has been marginal, approximately 20-30 mL an hour. No other events noted. OBJECTIVE: VITAL SIGNS: Blood pressure is 118/48, respirations 13, pulse 82, temperature 98.1. HEENT: Head is normocephalic. NECK: Supple. HEART: Regular rate. LUNGS: Show diminished breath sounds at the base. Positive crackles. ABDOMEN: Soft, nontender to palpation without rebound or guarding. Positive PEG. EXTREMITIES: Negative for clubbing, cyanosis. Positive edema, diffuse anasarca. DERMATOLOGIC: No rashes. MUSCULOSKELETAL: No joint effusion. NEUROLOGIC: No change in exam. MEDICATIONS: Reviewed. LABORATORY DATA: Reviewed. The patient's BUN 116, creatinine 2.51, magnesium 1.6. White count 13.4 , hemoglobin 8.2, platelet 205. Urinalysis was reviewed. IMAGING STUDIES: Reviewed. The patient's ABG was reviewed. ASSESSMENT AND PLAN: 1. Nonoliguric acute kidney injury on top of chronic kidney disease with previous baseline creatinin e around 2 to 2.5 mg/dL. Etiology of current acute kidney injury is secondary to sepsis, hemodynamic s, shock. The patient's renal function has been stable. However, the patient has a significant azot emia and is diffusely volume overloaded. Urinary output has been marginal. I spoke with the patient 's son yesterday about dialysis. The patient's son has agreed if necessary. Given the fact the rosetta ent remains grossly volume overloaded and the patient's creatinine is overestimating her true EGFR I will have a Juan catheter placed in the patient. Once placed, the patient will be initiated on he modialysis therapy for solute clearance and volume removal. We will continue to monitor closely. Ot herwise, continue supportive care, renally dose all medicines and avoid nephrotoxins. 2. Metabolic acidosis. The patient remains on bicarbonate drip. ABG was reviewed. Continue to mon itor. 3. Anemia. Continue to monitor hemoglobin and hematocrit levels. 4. Mineral bone disorder. Monitor calcium and phosphorus levels. 5. Volume overload. The patient has noted diffuse anasarca and pulmonary congestion. We would atte mpt ultrafiltration with dialysis if hemodynamically stable. 6. Septic shock secondary to urinary tract infection and pneumonia. Continue current antibiotic reg imen. Continue pressor support. 7. Tachycardic arrhythmia. Continue to monitor. 8. Ventilator-dependent respiratory failure. Vent settings and ABG reviewed. Continue to monitor. 9. Dysphagia, status post PEG. Continue tube feeding. 10. Acute encephalopathy, etiology is toxic metabolic. 11. Decompensated heart failure. Continue medical management. Please note, I spent over 30 minutes of critical care time with this patient. Dictated By: JEANA BANSAL DO NR/NTS Conf#: [id number] DID#: [id number] CC: QUINTEN UMAÑA MD; ROLAND GIRON MD;*EndCC*
--- NOTE | 2018-05-14 10:18 | CONS ---
Consult Date/Type/Reason Admit Date/Time May 06, 2018 at 17:38 Initial Consult Date 05/10/18 Type of Consult Pulmonary Requesting Provider: ROLAND GIRON MD Date/Time of Note DATE: 05/14/18 TIME: 10:16 Subjective Remains intubated on mechanical ventilation. Moderate secretions. Currently requiring vasopressor support. Stool positive for C. difficile colitis. Profuse diarrhea. Objective Vital Signs Date Temp Pulse Resp B/P (MAP) Pulse Ox O2 O2 Flow FiO2 Time Delivery Rate 05/14/18 83 08:00 05/14/18 40 08:00 05/14/18 118/48 Mechanical 08:00 (71) Ventilator 05/14/18 98.1 13 100 07:45 05/12/18 4.0 17:00 Intake and Output 05/13/18 05/13/18 05/14/18 1515:00 23:00 07:00 IntakeIntake Total 1163.30 ml 1920.38 ml 966.11 ml OutputOutput Total 360 ml 370 ml 350 ml BalanceBalance 803.30 ml 1550.38 ml 616.11 ml Exam GENERAL: Chronically ill-appearing lady orally intubated on mechanical ventilation VITAL SIGNS: per chart NECK: Supple. No JVD or lymphadenopathy. CARDIAC EXAM: S1, S2. No added sounds or murmurs. CHEST: Diminished air entry bilaterally with rales ABDOMEN: Soft, nontender. No guarding or rebound. EXTREMITIES: No cyanosis, clubbing edema +1 NEUROLOGIC: Sedated and unable to assess Vent Setting Ventilator Support Mode: AC Fraction of Inspired Oxygen pe: 40 Positive End Expiratory Pressu: 5.0 Results/Medications Result Diagram: 05/14/18 0424 05/14/18 0424 Results 24 hrs Laboratory Tests Test 05/13/18 12:00 05/13/18 14:21 05/13/18 16:31 05/14/18 04:24 Blood Gas Blood arterial Specimen Source Arterial Blood 05/13/2018 12:58: Date Drawn 59 PM Arterial Blood pH 7.292 *L (Temp corrected) Arterial Blood 47.3 H pCO2 (Temp correct) Arterial Blood 92.5 H pO2 (Temp corrected) Arterial Blood 22.3 HCO3 Arterial Blood -4.1 L Base Excess Arterial Blood 96.2 Oxygen Saturation Steven Test ACCEPTAB Arterial Blood Right Radial Gas Puncture Site Arterial 0.7 Blood Carboxyhemo globin Arterial Blood 0.4 Methemoglobin Blood Gas A-a O2 210.8 H Differential Oxyhemoglobin 95.1 Percent Blood Gas 37.0 Temperature Blood Gas 20.0 Respiration Rate Blood Gas Actual 22 Respiration Rate Blood Gas VENT - AC Modality FiO2 50.0 Blood Gas Tidal 500.0 Volume Blood Gas Low 3.0 PEEP Setting Blood Gas LPEREZ RN Critical Value Read Back Blood Gas TM Notified Whom Blood Gas 05/13/2018 1:26:5 Notified Time 7 PM Lactic Acid Level 0.7 Urine Color YELLOW Urine Clarity CLOUDY A Urine pH 5.0 Urine Specific 1.012 [place] Urine Ketones NEGATIVE Urine Nitrite NEGATIVE Urine Bilirubin NEGATIVE Urine NEGATIVE Urobilinogen Urine Leukocyte 2+ H Esterase Urine Microscopic 32 H RBC Urine Microscopic > 182 H WBC Urine Squamous FEW Epithelial Cells Urine Bacteria FEW A Urine Hemoglobin 2+ H Urine Glucose NEGATIVE Urine Total 2+ H Protein White Blood Count 15.4 H Red Blood Count 2.45 L Hemoglobin 8.2 L Hematocrit 26.0 L Mean Corpuscular 106.1 H Volume Mean Corpuscular 33.5 H Hemoglobin Mean Corpuscular 31.5 L Hemoglobin Concen t Red Cell 17.6 H Distribution Width Platelet Count 205 Mean Platelet 9.1 Volume Immature 1.000 H Granulocytes % Neutrophils % Segmented 84 H Neutrophils % (Manual) Band Neutrophils 10 H % (Manual) Lymphocytes % Lymphocytes % 3 L (Manual) Reactive 1 H Lymphocytes % (Manual) Monocytes % Monocytes % 1 (Manual) Eosinophils % Eosinophils % 1 (Manual) Basophils % Nucleated Red 0.0 Blood Cells % Immature 0.160 H Granulocytes # Neutrophils # Neutrophils # 13.2 H (Manual) Band Neutrophils 1.5 H # Lymphocytes 0.4 L (Manual) Lymphocytes # Reactive 0.1 H Lymphocytes # Monocytes # Monocytes # 0.1 L (Manual) Eosinophils # Basophils # Nucleated Red Blood Cells # Platelet Estimate NORMAL Polychromasia 2+ Poikilocytosis 1+ Anisocytosis 1+ Macrocytosis 1+ Target Cells 1+ Sodium Level 139 Potassium Level 3.5 Chloride Level 100 Carbon Dioxide 24 Level Anion Gap 15 H Blood Urea 116 H Nitrogen Creatinine 2.51 H Est Glomerular Filtrat Rate mL/min Glucose Level 115 Calcium Level 8.0 L Phosphorus Level 4.2 Magnesium Level 1.6 L Test 05/14/18 07:00 Blood Gas Blood arterial Specimen Source Arterial Blood 05/14/2018 7:12:0 Date Drawn 2 AM Arterial Blood pH 7.289 *L (Temp corrected) Arterial Blood 51.2 H pCO2 (Temp correct) Arterial Blood 84.1 pO2 (Temp corrected) Arterial Blood 24.0 HCO3 Arterial Blood -2.9 Base Excess Arterial Blood 95.3 Oxygen Saturation Steven Test ACCEPTAB Arterial Blood Right Radial Gas Puncture Site Arterial 1.3 Blood Carboxyhemo globin Arterial Blood 0.2 Methemoglobin Blood Gas A-a O2 142.2 H Differential Oxyhemoglobin 93.9 Percent Blood Gas 37.0 Temperature Blood Gas 20.0 Respiration Rate Blood Gas Actual 20 Respiration Rate Blood Gas VENT - AC Modality FiO2 40.0 Blood Gas Tidal 500.0 Volume Blood Gas Low 5.0 PEEP Setting Blood Gas AMADOR SABA Critical Value Read Back Blood Gas TM Notified Whom Blood Gas 05/14/2018 7:46:3 Notified Time 8 AM Medications Current Medications IV Flush (NS 10 ml) 10 ml PRN IV ; Start 05/06/18 at 20:30 Ascorbic Acid (Vitamin C) 500 mg DAILY GTB Last administered on 05/14/18 07:57; Admin Dose 500 MG; Start 05/07/18 at 09:00 Albuterol/ Ipratropium (Duoneb) 3 ml Q2H RESP THERAPY PRN HHN SHORTNESS OF BREATH; Start 05/06/18 at 23:30 Lorazepam (Ativan Intensol) 0.5 mg Q6H PRN PEG ANXIETY; Start 05/06/18 at 23:30 Zinc Sulfate (Zinc Sulfate) 220 mg DAILY GTB Last administered on 05/14/18 07:57; Admin Dose 220 MG; Start 05/07/18 at 09:00 Ondansetron HCl (Zofran Tab) 4 mg Q6H PRN GTB NAUSEA AND/OR VOMITING; Start 05/07/18 at 00:15 Multivitamins (Multivitamin) 30 ml DAILY GTB Last administered on 05/14/18 07:57; Admin Dose 30 ML; Start 05/07/18 at 09:00 Epoetin Zen (Epogen (Esrd)) 20,000 units Tu@1700 SC Last administered on 05/12/18at 17:36; Admin Dose 20,000 UNITS; Start 05/12/18 at 17:00 Norepinephrine 250 ml @ 1.875 mls/ hr TITRATE IV Last administered on 05/08/18 13:33; Admin Dose 33.75 MLS/HR; Start 05/08/18 at 03:00 Citric Acid/ Sodium Citrate (Bicitra) 30 ml Q8 PO Last administered on 05/14/18 05:30; Admin Dose 30 ML; Start 05/09/18 at 08:00 Phenylephrine HCl 80 mg/Dextrose 250 ml @ 18.75 mls/ hr TITRATE IV Last administered on 05/14/18 01:05; Admin Dose 16.88 MLS/HR; Start 05/09/18 at 12:30 Miscellaneous Information (Pending Santyl Order For Wound Care) This patient goldman... PRN PRN XX WOUND CARE; Start 05/09/18 at 17:00 Vancomycin HCl (Vancomycin Oral Syringe) 250 mg Q6 PO Last administered on 05/14/18 05:30; Admin Dose 250 MG; Start 05/12/18 at 00:00 Metronidazole 100 ml @ 100 mls/hr Q8 IVPB Last administered on 05/14/18 05:31; Admin Dose 100 MLS/HR; Start 05/11/18 at 20:00 Sodium Bicarbonate 150 meq/Dextrose 1,150 ml @ 50 mls/hr Q23H IV Last administered on 05/14/18 06:42; Admin Dose 75 MLS/HR; Start 05/12/18 at 08:00 Collagenase (Santyl) 1 applic DAILY TOP Last administered on 05/14/18 07:57; Admin Dose 1 APPLIC; Start 05/13/18 at 09:00 Propofol 100 ml @ 2.64 mls/hr Q12H IV Last administered on 05/14/18 06:42; Admin Dose 15.84 MLS/HR; Start 05/12/18 at 18:30 Albuterol (Ventolin Hfa) 4 puff Q6H RESP THERAPY INH Last administered on 05/14/18 08:06; Admin Dose 4 PUFF; Start 05/12/18 at 20:00 Ipratropium [place] (Atrovent Hfa) 4 puff Q6H RESP THERAPY INH Last administered on 05/14/18 08:05; Admin Dose 4 PUFF; Start 05/12/18 at 20:00 Meropenem/Sodium Chloride 50 ml @ 100 mls/hr Q12 IVPB Last administered on 05/13/18at 20:41; Admin Dose 100 MLS/HR; Start 05/13/18 at 21:00 Linezolid 300 ml @ 300 mls/hr Q12 IVPB Last administered on 05/14/18at 07:56; Admin Dose 300 MLS/HR; Start 05/13/18 at 14:30 Magnesium Sulfate 50 ml @ 25 mls/hr ONCE ONCE IVPB ; Start 05/14/18 at 08:30; Stop 05/14/18 at 10:29 Assessment/Plan Hospital Course (Demo Recall) IMP: 1. Septic shock likely secondary to recent UTI now C. difficile colitis 2. Acute Renal Failure--likely non-oliguric ATN 3. Resolved metabolic acidosis 4. Encephalopathy--toxic-metabolic 2/2 infection and ARF, in addition to baseline 5. Anemia--r/o acute GIB 6. H/O abdominal abscess 7. Acute hypoxemic respiratory failure requiring intubation and mechanical ventilation. History of tracheostomy with decannulation 1 month ago.. RECS: 1. IV fluids per nephrology 2. Continue mechanical ventilation anticipate patient requiring tracheostomy given her chronic lung disease. 3. Abx as per ID 4. Continue tube feeding as tolerated 5. Aspiration precautions pulmonary toilet 6. Monitor H&H post transfusion 7. Renal recommendations Continue supportive care, Critical care time 40 minutes. LAURA JENKINS MD, [facility] May 14, 2018 10:18
--- NOTE | 2018-05-14 11:05 | PN ---
Date/Time of Note Date/Time of Note DATE: 05/14/18 TIME: 10:59 Assessment/Plan VTE Prophylaxis Risk score (from [facility] [place])>0 risk: 13 SCD applied (from [facility] [place]): Yes Pharmacological prophylaxis: NA/contraindicated Pharm contraindication: bleeding Lines/Catheters IV Catheter Type (from [facility]): PICC Line Central line still needed: Yes Urinary Cath still in place: Yes Reason Cath still needed: urinary retention Assessment/Plan Hospital Course Patient on Earnest-Synephrine drip for hemodynamic support, ventilatory support, marginal urinary output, diarrhea. Assessment/Plan -Septic shock secondary to urinary tract infection, anterior neck soft tissue infection, and C. difficile colitis. Continue pressors for hemodynamic support, IV fluids, antibiotics per ID. Dr. Black is following in infection disease consultation. -Acute respiratory failure requiring intubation and ventilatory support. Dr. Lambert is following in pulmonology consultation. -Acute kidney injury on chronic kidney disease. Plan for initiating hemodialysis. Dr. Mckeon is following in nephrology consultation. -Metabolic acidosis, resolved. -Acute diastolic congestive heart failure. Dr. Scanlon is following in cardiology consultation. -Paroxysmal atrial fibrillation, remains sinus rhythm -COPD -Dysphagia with PEG. -G-tube mild malfunction, changed by GI Dr. Carolina is following in gastroenterology consultation. -Obesity Critical care time spent is 30 minutes. Further recommendations based on clinical course. Plan of care discussed with Dr. iEsenberg. Result Diagram: 05/14/18 0424 05/14/18 0424 Results 24hrs Laboratory Tests Test 05/13/18 12:00 05/13/18 14:21 05/13/18 16:31 05/14/18 04:24 Blood Gas Blood arterial Specimen Source Arterial Blood 05/13/2018 12:58: Date Drawn 59 PM Arterial Blood pH 7.292 *L (Temp corrected) Arterial Blood 47.3 H pCO2 (Temp correct) Arterial Blood 92.5 H pO2 (Temp corrected) Arterial Blood 22.3 HCO3 Arterial Blood -4.1 L Base Excess Arterial Blood 96.2 Oxygen Saturation Steven Test ACCEPTAB Arterial Blood Right Radial Gas Puncture Site Arterial 0.7 Blood Carboxyhemo globin Arterial Blood 0.4 Methemoglobin Blood Gas A-a O2 210.8 H Differential Oxyhemoglobin 95.1 Percent Blood Gas 37.0 Temperature Blood Gas 20.0 Respiration Rate Blood Gas Actual 22 Respiration Rate Blood Gas VENT - AC Modality FiO2 50.0 Blood Gas Tidal 500.0 Volume Blood Gas Low 3.0 PEEP Setting Blood Gas LPEREZ RN Critical Value Read Back Blood Gas TM Notified Whom Blood Gas 05/13/2018 1:26:5 Notified Time 7 PM Lactic Acid Level 0.7 Urine Color YELLOW Urine Clarity CLOUDY A Urine pH 5.0 Urine Specific 1.012 [place] Urine Ketones NEGATIVE Urine Nitrite NEGATIVE Urine Bilirubin NEGATIVE Urine NEGATIVE Urobilinogen Urine Leukocyte 2+ H Esterase Urine Microscopic 32 H RBC Urine Microscopic > 182 H WBC Urine Squamous FEW Epithelial Cells Urine Bacteria FEW A Urine Hemoglobin 2+ H Urine Glucose NEGATIVE Urine Total 2+ H Protein White Blood Count 15.4 H Red Blood Count 2.45 L Hemoglobin 8.2 L Hematocrit 26.0 L Mean Corpuscular 106.1 H Volume Mean Corpuscular 33.5 H Hemoglobin Mean Corpuscular 31.5 L Hemoglobin Concen t Red Cell 17.6 H Distribution Width Platelet Count 205 Mean Platelet 9.1 Volume Immature 1.000 H Granulocytes % Neutrophils % Segmented 84 H Neutrophils % (Manual) Band Neutrophils 10 H % (Manual) Lymphocytes % Lymphocytes % 3 L (Manual) Reactive 1 H Lymphocytes % (Manual) Monocytes % Monocytes % 1 (Manual) Eosinophils % Eosinophils % 1 (Manual) Basophils % Nucleated Red 0.0 Blood Cells % Immature 0.160 H Granulocytes # Neutrophils # Neutrophils # 13.2 H (Manual) Band Neutrophils 1.5 H # Lymphocytes 0.4 L (Manual) Lymphocytes # Reactive 0.1 H Lymphocytes # Monocytes # Monocytes # 0.1 L (Manual) Eosinophils # Basophils # Nucleated Red Blood Cells # Platelet Estimate NORMAL Polychromasia 2+ Poikilocytosis 1+ Anisocytosis 1+ Macrocytosis 1+ Target Cells 1+ Sodium Level 139 Potassium Level 3.5 Chloride Level 100 Carbon Dioxide 24 Level Anion Gap 15 H Blood Urea 116 H Nitrogen Creatinine 2.51 H Est Glomerular Filtrat Rate mL/min Glucose Level 115 Calcium Level 8.0 L Phosphorus Level 4.2 Magnesium Level 1.6 L Test 05/14/18 07:00 Blood Gas Blood arterial Specimen Source Arterial Blood 05/14/2018 7:12:0 Date Drawn 2 AM Arterial Blood pH 7.289 *L (Temp corrected) Arterial Blood 51.2 H pCO2 (Temp correct) Arterial Blood 84.1 pO2 (Temp corrected) Arterial Blood 24.0 HCO3 Arterial Blood -2.9 Base Excess Arterial Blood 95.3 Oxygen Saturation Steven Test ACCEPTAB Arterial Blood Right Radial Gas Puncture Site Arterial 1.3 Blood Carboxyhemo globin Arterial Blood 0.2 Methemoglobin Blood Gas A-a O2 142.2 H Differential Oxyhemoglobin 93.9 Percent Blood Gas 37.0 Temperature Blood Gas 20.0 Respiration Rate Blood Gas Actual 20 Respiration Rate Blood Gas VENT - AC Modality FiO2 40.0 Blood Gas Tidal 500.0 Volume Blood Gas Low 5.0 PEEP Setting Blood Gas AMADOR SABA Critical Value Read Back Blood Gas TM Notified Whom Blood Gas 05/14/2018 7:46:3 Notified Time 8 AM Exam/Review of Systems Exam Vitals Vital Signs Date Temp Pulse Resp B/P (MAP) Pulse Ox O2 O2 Flow FiO2 Time Delivery Rate 05/14/18 83 08:00 05/14/18 40 08:00 05/14/18 118/48 Mechanical 08:00 (71) Ventilator 05/14/18 98.1 13 100 07:45 05/12/18 4.0 17:00 Intake and Output 05/13/18 05/13/18 05/14/18 1515:00 23:00 07:00 IntakeIntake Total 1163.30 ml 1920.38 ml 966.11 ml OutputOutput Total 360 ml 370 ml 350 ml BalanceBalance 803.30 ml 1550.38 ml 616.11 ml Exam Constitutional: frail, orally intubated Respiratory: diminished breath sounds Cardiovascular: regular rate and rhythm Gastrointestinal: soft, tender, other (G-tube) Musculoskeletal: nl extremities to inspection Extremities: normal pulses Neurological: sedated Results Results 24hrs Laboratory Tests Test 05/13/18 12:00 05/13/18 14:21 05/13/18 16:31 05/14/18 04:24 Blood Gas Blood arterial Specimen Source Arterial Blood 05/13/2018 12:58: Date Drawn 59 PM Arterial Blood pH 7.292 *L (Temp corrected) Arterial Blood 47.3 H pCO2 (Temp correct) Arterial Blood 92.5 H pO2 (Temp corrected) Arterial Blood 22.3 HCO3 Arterial Blood -4.1 L Base Excess Arterial Blood 96.2 Oxygen Saturation Steven Test ACCEPTAB Arterial Blood Right Radial Gas Puncture Site Arterial 0.7 Blood Carboxyhemo globin Arterial Blood 0.4 Methemoglobin Blood Gas A-a O2 210.8 H Differential Oxyhemoglobin 95.1 Percent Blood Gas 37.0 Temperature Blood Gas 20.0 Respiration Rate Blood Gas Actual 22 Respiration Rate Blood Gas VENT - AC Modality FiO2 50.0 Blood Gas Tidal 500.0 Volume Blood Gas Low 3.0 PEEP Setting Blood Gas LPEREZ RN Critical Value Read Back Blood Gas TM Notified Whom Blood Gas 05/13/2018 1:26:5 Notified Time 7 PM Lactic Acid Level 0.7 Urine Color YELLOW Urine Clarity CLOUDY A Urine pH 5.0 Urine Specific 1.012 [place] Urine Ketones NEGATIVE Urine Nitrite NEGATIVE Urine Bilirubin NEGATIVE Urine NEGATIVE Urobilinogen Urine Leukocyte 2+ H Esterase Urine Microscopic 32 H RBC Urine Microscopic > 182 H WBC Urine Squamous FEW Epithelial Cells Urine Bacteria FEW A Urine Hemoglobin 2+ H Urine Glucose NEGATIVE Urine Total 2+ H Protein White Blood Count 15.4 H Red Blood Count 2.45 L Hemoglobin 8.2 L Hematocrit 26.0 L Mean Corpuscular 106.1 H Volume Mean Corpuscular 33.5 H Hemoglobin Mean Corpuscular 31.5 L Hemoglobin Concen t Red Cell 17.6 H Distribution Width Platelet Count 205 Mean Platelet 9.1 Volume Immature 1.000 H Granulocytes % Neutrophils % Segmented 84 H Neutrophils % (Manual) Band Neutrophils 10 H % (Manual) Lymphocytes % Lymphocytes % 3 L (Manual) Reactive 1 H Lymphocytes % (Manual) Monocytes % Monocytes % 1 (Manual) Eosinophils % Eosinophils % 1 (Manual) Basophils % Nucleated Red 0.0 Blood Cells % Immature 0.160 H Granulocytes # Neutrophils # Neutrophils # 13.2 H (Manual) Band Neutrophils 1.5 H # Lymphocytes 0.4 L (Manual) Lymphocytes # Reactive 0.1 H Lymphocytes # Monocytes # Monocytes # 0.1 L (Manual) Eosinophils # Basophils # Nucleated Red Blood Cells # Platelet Estimate NORMAL Polychromasia 2+ Poikilocytosis 1+ Anisocytosis 1+ Macrocytosis 1+ Target Cells 1+ Sodium Level 139 Potassium Level 3.5 Chloride Level 100 Carbon Dioxide 24 Level Anion Gap 15 H Blood Urea 116 H Nitrogen Creatinine 2.51 H Est Glomerular Filtrat Rate mL/min Glucose Level 115 Calcium Level 8.0 L Phosphorus Level 4.2 Magnesium Level 1.6 L Test 05/14/18 07:00 Blood Gas Blood arterial Specimen Source Arterial Blood 05/14/2018 7:12:0 Date Drawn 2 AM Arterial Blood pH 7.289 *L (Temp corrected) Arterial Blood 51.2 H pCO2 (Temp correct) Arterial Blood 84.1 pO2 (Temp corrected) Arterial Blood 24.0 HCO3 Arterial Blood -2.9 Base Excess Arterial Blood 95.3 Oxygen Saturation Steven Test ACCEPTAB Arterial Blood Right Radial Gas Puncture Site Arterial 1.3 Blood Carboxyhemo globin Arterial Blood 0.2 Methemoglobin Blood Gas A-a O2 142.2 H Differential Oxyhemoglobin 93.9 Percent Blood Gas 37.0 Temperature Blood Gas 20.0 Respiration Rate Blood Gas Actual 20 Respiration Rate Blood Gas VENT - AC Modality FiO2 40.0 Blood Gas Tidal 500.0 Volume Blood Gas Low 5.0 PEEP Setting [facility] Critical Value Read Back Blood Gas TM Notified Whom Blood Gas 05/14/2018 7:46:3 Notified Time 8 AM Medications Medication Current Medications IV Flush (NS 10 ml) 10 ml PRN IV ; Start 05/06/18 at 20:30 Ascorbic Acid (Vitamin C) 500 mg DAILY GTB Last administered on 05/14/18at 07:57; Admin Dose 500 MG; Start 05/07/18 at 09:00 Albuterol/ Ipratropium (Duoneb) 3 ml Q2H RESP THERAPY PRN HHN SHORTNESS OF BREATH; Start 05/06/18 at 23:30 Lorazepam (Ativan Intensol) 0.5 mg Q6H PRN PEG ANXIETY; Start 05/06/18 at 23:30 Zinc Sulfate (Zinc Sulfate) 220 mg DAILY GTB Last administered on 05/14/18at 07:57; Admin Dose 220 MG; Start 05/07/18 at 09:00 Ondansetron HCl (Zofran Tab) 4 mg Q6H PRN GTB NAUSEA AND/OR VOMITING; Start at 00:15 Multivitamins (Multivitamin) 30 ml DAILY GTB Last administered on 05/14/18at 07:57; Admin Dose 30 ML; Start 05/07/18 at 09:00 Epoetin Zen (Epogen (Esrd)) 20,000 units Tu@1700 SC Last administered on 05/12/18at 17:36; Admin Dose 20,000 UNITS; Start 05/12/18 at 17:00 Norepinephrine 250 ml @ 1.875 mls/ hr TITRATE IV Last administered on 05/08/18 13:33; Admin Dose 33.75 MLS/HR; Start 05/08/18 at 03:00 Citric Acid/ Sodium Citrate (Bicitra) 30 ml Q8 PO Last administered on 05/14/18 t 05:30; Admin Dose 30 ML; Start 05/09/18 at 08:00 Phenylephrine HCl 80 mg/Dextrose 250 ml @ 18.75 mls/ hr TITRATE IV Last administered on 05/14/18 01:05; Admin Dose 16.88 MLS/HR; Start 05/09/18 at 12:30 Miscellaneous Information (Pending Santyl Order For Wound Care) This patient goldman... PRN PRN XX WOUND CARE; Start 05/09/18 at 17:00 Vancomycin HCl (Vancomycin Oral Syringe) 250 mg Q6 PO Last administered on 05/14/18 05:30; Admin Dose 250 MG; Start 05/12/18 at 00:00 Metronidazole 100 ml @ 100 mls/hr Q8 IVPB Last administered on 05/14/18 05:31; Admin Dose 100 MLS/HR; Start 05/11/18 at 20:00 Sodium Bicarbonate 150 meq/Dextrose 1,150 ml @ 50 mls/hr Q23H IV Last administered on 05/14/18 06:42; Admin Dose 75 MLS/HR; Start 05/12/18 at 08:00 Collagenase (Santyl) 1 applic DAILY TOP Last administered on 05/14/18 07:57; Admin Dose 1 APPLIC; Start 05/13/18 at 09:00 Propofol 100 ml @ 2.64 mls/hr Q12H IV Last administered on 05/14/18 06:42; Admin Dose 15.84 MLS/HR; Start 05/12/18 at 18:30 Albuterol (Ventolin Hfa) 4 puff Q6H RESP THERAPY INH Last administered on 05/14/18 08:06; Admin Dose 4 PUFF; Start 05/12/18 at 20:00 Ipratropium [place] (Atrovent Hfa) 4 puff Q6H RESP THERAPY INH Last administered on 05/14/18 08:05; Admin Dose 4 PUFF; Start 05/12/18 at 20:00 Meropenem/Sodium Chloride 50 ml @ 100 mls/hr Q12 IVPB Last administered on 05/13/18at 20:41; Admin Dose 100 MLS/HR; Start 05/13/18 at 21:00 Linezolid 300 ml @ 300 mls/hr Q12 IVPB Last administered on 05/14/18at 07:56; Admin Dose 300 MLS/HR; Start 05/13/18 at 14:30 GRISELDA DENNIS May 14, 2018 11:05
[2018-05-14] MEDS: MEROPENEM 500MG/50 ML (PMX) 50 ML IVPB SCH ×2 (11:06→20:59)
[2018-05-14] MEDS ORDERED: LIDOCAINE 1% (MDV) 20 ML INJ ONE (11:57)
[2018-05-14] MEDS ORDERED: HEPARIN 1000 UNITS/ML 10 ML INJ CATHETER ONE (12:00)
[2018-05-14] MEDS ORDERED: LIDOCAINE 2% (MDV) 20 ML INJ INJ ONE (12:00)
--- NOTE | 2018-05-14 12:39 | OPR ---
Date/Time of Note Date/Time of Note DATE: 05/14/18 TIME: 12:38 Operative Report Procedure Date: May 14, 2018 Preoperative Diagnosis Failure Postoperative Diagnosis Failure Operation/Procedure Performed Femoral hemodialysis catheter placement Surgeon see signature line Filter Press Supervisor None Anesthesia Type: MAC Estimated Blood Loss: minimal Transfusion none Specimen None Grafts/Implants none Complications none Disposition: PACU Procedure Description Patient was placed in supine position prepped and draped in usual sterile fashion timeout was called Access was gained the right common femoral vein guidewire was advanced through without any difficulty subcutaneous tissues were dilated 20 cm dialysis catheter advanced over a guidewire secured to skin using silk sutures both ports of the catheter were aspirated and injected using saline solution appropriate dressings applied patient tolerated procedure well DANNI GARCIAS MD May 14, 2018 12:39
--- NOTE | 2018-05-14 15:18 | CONS ---
Assessment/Plan Assessment/Plan Hospital Course (Demo Recall) Septic as well as hemorrhagic shock Hypotension on IV pressor Acute respiratory failure status post intubation Acute blood loss anemia Septic shock and hemorrhagic shock History of respiratory failure status post decannulation Preserved ejection fraction echocardiogram 05/10/2018 Paroxysmal atrial fibrillation, currently sinus rhythm Acute kidney injury -Vent management as per pulmonary -Titrate IV pressor to maintain SBP greater than 90 and/or map above 60. IV pressor requirements have been decreasing. -Fluid management as per renal, likely initiation of hemodialysis -Hold all antihypertensives and nephrotoxic medications -Antibiotics as per infectious disease Consultation Date/Type/Reason Admit Date/Time May 06, 2018 at 17:38 Initial Consult Date 05/10/18 Type of Consult Cardiology Requesting Provider: ROLAND GIRON MD Date/Time of Note DATE: 05/14/18 TIME: 15:16 24 HR Interval Summary Free Text/Dictation Patient seen and examined. Remains intubated Exam/Review of Systems Vital Signs Vitals Vital Signs Date Temp Pulse Resp B/P (MAP) Pulse Ox O2 O2 Flow FiO2 Time Delivery Rate 05/14/18 81 20 99 40 13:50 05/14/18 126/54 12:45 (78) 05/14/18 Mechanical 12:30 Ventilator 05/14/18 98.1 07:45 05/12/18 4.0 17:00 Intake and Output 05/13/18 05/13/18 05/14/18 1515:00 23:00 07:00 IntakeIntake Total 1163.30 ml 1920.38 ml 966.11 ml OutputOutput Total 360 ml 370 ml 350 ml BalanceBalance 803.30 ml 1550.38 ml 616.11 ml Exam Exam Intubated, no apparent distress Head: normocephalic ENMT: intubated Respiratory: other (Coarse breath sounds bilaterally, no wheezing) Cardiovascular: regular rate and rhythm (S1-S2 heard) Gastrointestinal: soft, non-tender, bowel sounds Extremities: edema Labs Result Diagram: 05/14/184 05/14/184 Results 24hrs Laboratory Tests Test 05/13/18 16:31 05/14/18 04:24 05/14/18 07:00 Urine Color YELLOW Urine Clarity CLOUDY A Urine pH 5.0 Urine Specific [place] 1.012 Urine Ketones NEGATIVE Urine Nitrite NEGATIVE Urine Bilirubin NEGATIVE Urine Urobilinogen NEGATIVE Urine Leukocyte Esterase 2+ H Urine Microscopic RBC 32 H Urine Microscopic WBC > 182 H Urine Squamous FEW Epithelial Cells Urine Bacteria FEW A Urine Hemoglobin 2+ H Urine Glucose NEGATIVE Urine Total Protein 2+ H White Blood Count 15.4 H Red Blood Count 2.45 L Hemoglobin 8.2 L Hematocrit 26.0 L Mean Corpuscular Volume 106.1 H Mean Corpuscular Hemoglobin 33.5 H Mean Corpuscular 31.5 L Hemoglobin Concent Red Cell Distribution Width 17.6 H Platelet Count 205 Mean Platelet Volume 9.1 Immature Granulocytes % 1.000 H Neutrophils % Segmented Neutrophils 84 H % (Manual) Band Neutrophils % (Manual) 10 H Lymphocytes % Lymphocytes % (Manual) 3 L Reactive Lymphocytes 1 H % (Manual) Monocytes % Monocytes % (Manual) 1 Eosinophils % Eosinophils % (Manual) 1 Basophils % Nucleated Red Blood Cells % 0.0 Immature Granulocytes # 0.160 H Neutrophils # Neutrophils # (Manual) 13.2 H Band Neutrophils # 1.5 H Lymphocytes (Manual) 0.4 L Lymphocytes # Reactive Lymphocytes # 0.1 H Monocytes # Monocytes # (Manual) 0.1 L Eosinophils # Basophils # Nucleated Red Blood Cells # Platelet Estimate NORMAL Polychromasia 2+ Poikilocytosis 1+ Anisocytosis 1+ Macrocytosis 1+ Target Cells 1+ Sodium Level 139 Potassium Level 3.5 Chloride Level 100 Carbon Dioxide Level 24 Anion Gap 15 H Blood Urea Nitrogen 116 H Creatinine 2.51 H Est Glomerular Filtrat Rate mL/min Glucose Level 115 Calcium Level 8.0 L Phosphorus Level 4.2 Magnesium Level 1.6 L Blood Gas Specimen Source Blood arterial Arterial Blood Date Drawn 05/14/2018 7:12:02 AM Arterial Blood pH 7.289 *L (Temp corrected) Arterial Blood pCO2 51.2 H (Temp correct) Arterial Blood pO2 84.1 (Temp corrected) Arterial Blood HCO3 24.0 Arterial Blood Base Excess -2.9 Arterial Blood 95.3 Oxygen Saturation Steven Test ACCEPTAB Arterial Blood Gas Right Radial Puncture Site Arterial 1.3 Blood Carboxyhemoglobin Arterial Blood Methemoglobin 0.2 Blood Gas A-a O2 142.2 H Differential Oxyhemoglobin Percent 93.9 Blood Gas Temperature 37.0 Blood Gas Respiration Rate 20.0 Blood Gas Actual 20 Respiration Rate Blood Gas Modality VENT - AC FiO2 40.0 Blood Gas Tidal Volume 500.0 Blood Gas Low PEEP Setting 5.0 Blood Gas Critical Value HWEKALLI RN Read Back Blood Gas Notified Whom TM Blood Gas Notified Time 05/14/2018 7:46:38 AM Medications Medications Current Medications IV Flush (NS 10 ml) 10 ml PRN IV ; Start 05/06/18 at 20:30 Ascorbic Acid (Vitamin C) 500 mg DAILY GTB Last administered on 05/14/18 07:57; Admin Dose 500 MG; Start 05/07/18 at 09:00 Albuterol/ Ipratropium (Duoneb) 3 ml Q2H RESP THERAPY PRN HHN SHORTNESS OF BREATH; Start 05/06/18 at 23:30 Lorazepam (Ativan Intensol) 0.5 mg Q6H PRN PEG ANXIETY; Start 05/06/18 at 23:30 Zinc Sulfate (Zinc Sulfate) 220 mg DAILY GTB Last administered on 05/14/18at 07:57; Admin Dose 220 MG; Start 05/07/18 at 09:00 Ondansetron HCl (Zofran Tab) 4 mg Q6H PRN GTB NAUSEA AND/OR VOMITING; Start 05/07/18 at 00:15 Multivitamins (Multivitamin) 30 ml DAILY GTB Last administered on 05/14/18at 07:57; Admin Dose 30 ML; Start 05/07/18 at 09:00 Epoetin Zen (Epogen (Esrd)) 20,000 units Tu@1700 SC Last administered on 05/12/18at 17:36; Admin Dose 20,000 UNITS; Start 05/12/18 at 17:00 Norepinephrine 250 ml @ 1.875 mls/ hr TITRATE IV Last administered on 05/08/18 at 13:33; Admin Dose 33.75 MLS/HR; Start 05/08/18 at 03:00 Citric Acid/ Sodium Citrate (Bicitra) 30 ml Q8 PO Last administered on 05/14/18at 14:04; Admin Dose 30 ML; Start 05/09/18 at 08:00 Phenylephrine HCl 80 mg/Dextrose 250 ml @ 18.75 mls/ hr TITRATE IV Last administered on 05/14/18at 01:05; Admin Dose 16.88 MLS/HR; Start 05/09/18 at 12:30 [facility] This patient goldman... PRN PRN XX WOUND CARE; Start 05/09/18 at 17:00 Vancomycin HCl (Vancomycin Oral Syringe) 250 mg Q6 PO Last administered on 05/14/18 13:06; Admin Dose 250 MG; Start 05/12/18 at 00:00 Metronidazole 100 ml @ 100 mls/hr Q8 IVPB Last administered on 05/14/18 14:04; Admin Dose 100 MLS/HR; Start 05/11/18 at 20:00 Sodium Bicarbonate 150 meq/Dextrose 1,150 ml @ 50 mls/hr Q23H IV Last administered on 05/14/18 06:42; Admin Dose 75 MLS/HR; Start 05/12/18 at 08:00 Collagenase (Santyl) 1 applic DAILY TOP Last administered on 05/14/18 07:57; Admin Dose 1 APPLIC; Start 05/13/18 at 09:00 Propofol 100 ml @ 2.64 mls/hr Q12H IV Last administered on 05/14/18 13:07; Admin Dose 15.84 MLS/HR; Start 05/12/18 at 18:30 Albuterol (Ventolin Hfa) 4 puff Q6H RESP THERAPY INH Last administered on 05/14/18 08:06; Admin Dose 4 PUFF; Start 05/12/18 at 20:00 Ipratropium [place] (Atrovent Hfa) 4 puff Q6H RESP THERAPY INH Last administered on 05/14/18 08:05; Admin Dose 4 PUFF; Start 05/12/18 at 20:00 Meropenem/Sodium Chloride 50 ml @ 100 mls/hr Q12 IVPB Last administered on 05/14/18 11:06; Admin Dose 100 MLS/HR; Start 05/13/18 at 21:00 Linezolid 300 ml @ 300 mls/hr Q12 IVPB Last administered on 05/14/18 07:56; Admin Dose 300 MLS/HR; Start 05/13/18 at 14:30 Evangelista Scanlon DO May 14, 2018 15:18
--- NOTE | 2018-05-14 19:05 | CONS ---
Assessment/Plan Assessment/Plan Assessment/Plan (Daily) Assessment/Plan (Daily) Interval hx: Tolerating tube feeds at 30cc/hr. G tube site is slightly re ddened around opening but otherwise benign abd. No signs of GI bleeding per RN. On phenylephrine gtt 1. Malfunctioning gastrostomy tube. 2. Renal failure. 3. Sepsis. 4. Hyponatremia. 5. Chronic obstructive pulmonary disease. 6. Bipolar. 7. Paroxysmal atrial fibrillation. 8. Critical care myopathy. 9. Anemia of chronic disease. 10. Diastolic failure. 11. Elevated alk phos with h/o hepatic venous congestion seen on abd CT in 2018 12. C. difficile colitis 13 profuse diarrhea PLAN: Continue vancomycin Increase feeding There is no evidence of GI bleeding and will start the patient on Pepcid We will stop PPI Question 4 g twice daily Consultation Date/Type/Reason Admit Date/Time May 06, 2018 at 17:38 Initial Consult Date 05/10/18 Requesting Provider: ROLAND GIRON MD Date/Time of Note DATE: 05/14/18 TIME: 19:04 24 HR Interval Summary Free Text/Dictation Per the staff patient is a profuse diarrhea Exam/Review of Systems Exam Vitals Vital Signs Date Temp Pulse Resp B/P (MAP) Pulse Ox O2 O2 Flow FiO2 Time Delivery Rate 05/14/18 77 29 107/67 18:15 (80) 05/14/18 97.4 98 Mechanical 18:00 Ventilator 05/14/18 40 17:30 05/12/18 4.0 17:00 Intake and Output 05/13/18 05/13/18 05/14/18 1515:00 23:00 07:00 IntakeIntake Total 1163.30 ml 1920.38 ml 1131.11 ml OutputOutput Total 360 ml 370 ml 350 ml BalanceBalance 803.30 ml 1550.38 ml 781.11 ml Constitutional: non-verbal ENMT: nl external ears & nose, nl lips & teeth, nl nasal mucosa & septum Respiratory: diminished breath sounds Musculoskeletal: nl extremities to inspection, nl gait and stance Results Result Diagram: 05/14/18 0424 05/14/184 Results 24hrs Laboratory Tests Test 05/14/18 04:24 05/14/18 07:00 White Blood Count 15.4 H Red Blood Count 2.45 L Hemoglobin 8.2 L Hematocrit 26.0 L Mean Corpuscular Volume 106.1 H Mean Corpuscular Hemoglobin 33.5 H Mean Corpuscular Hemoglobin Concent 31.5 L Red Cell Distribution Width 17.6 H Platelet Count 205 Mean Platelet Volume 9.1 Immature Granulocytes % 1.000 H Neutrophils % Segmented Neutrophils % (Manual) 84 H Band Neutrophils % (Manual) 10 H Lymphocytes % Lymphocytes % (Manual) 3 L Reactive Lymphocytes % (Manual) 1 H Monocytes % Monocytes % (Manual) 1 Eosinophils % Eosinophils % (Manual) 1 Basophils % Nucleated Red Blood Cells % 0.0 Immature Granulocytes # 0.160 H Neutrophils # Neutrophils # (Manual) 13.2 H Band Neutrophils # 1.5 H Lymphocytes (Manual) 0.4 L Lymphocytes # Reactive Lymphocytes # 0.1 H Monocytes # Monocytes # (Manual) 0.1 L Eosinophils # Basophils # Nucleated Red Blood Cells # Platelet Estimate NORMAL Polychromasia 2+ Poikilocytosis 1+ Anisocytosis 1+ Macrocytosis 1+ Target Cells 1+ Sodium Level 139 Potassium Level 3.5 Chloride Level 100 Carbon Dioxide Level 24 Anion Gap 15 H Blood Urea Nitrogen 116 H Creatinine 2.51 H Est Glomerular Filtrat Rate mL/min Glucose Level 115 Calcium Level 8.0 L Phosphorus Level 4.2 Magnesium Level 1.6 L Blood Gas Specimen Source Blood arterial Arterial Blood Date Drawn 05/14/2018 7:12:02 AM Arterial Blood pH (Temp corrected) 7.289 *L Arterial Blood pCO2 (Temp correct) 51.2 H Arterial Blood pO2 (Temp corrected) 84.1 Arterial Blood HCO3 24.0 Arterial Blood Base Excess -2.9 Arterial Blood Oxygen Saturation 95.3 Steven Test ACCEPTAB Arterial Blood Gas Puncture Site Right Radial Arterial Blood Carboxyhemoglobin 1.3 Arterial Blood Methemoglobin 0.2 Blood Gas A-a O2 Differential 142.2 H Oxyhemoglobin Percent 93.9 Blood Gas Temperature 37.0 Blood Gas Respiration Rate 20.0 Blood Gas Actual Respiration Rate 20 Blood Gas Modality VENT - AC FiO2 40.0 Blood Gas Tidal Volume 500.0 Blood Gas Low PEEP Setting 5.0 Blood Gas Critical Value Read Back AMADOR RN Blood Gas Notified Whom TM Blood Gas Notified Time 05/14/2018 7:46:38 AM Medications Medication Current Medications IV Flush (NS 10 ml) 10 ml PRN IV ; Start 05/06/18 at 20:30 Ascorbic Acid (Vitamin C) 500 mg DAILY GTB Last administered on 05/14/18 07:57; Admin Dose 500 MG; Start 05/07/18 at 09:00 Albuterol/ Ipratropium (Duoneb) 3 ml Q2H RESP THERAPY PRN HHN SHORTNESS OF BREATH; Start 05/06/18 at 23:30 Lorazepam (Ativan Intensol) 0.5 mg Q6H PRN PEG ANXIETY; Start 05/06/18 at 23:30 Zinc Sulfate (Zinc Sulfate) 220 mg DAILY GTB Last administered on 05/14/18 07:57; Admin Dose 220 MG; Start 05/07/18 at 09:00 Ondansetron HCl (Zofran Tab) 4 mg Q6H PRN GTB NAUSEA AND/OR VOMITING; Start at 00:15 Multivitamins (Multivitamin) 30 ml DAILY GTB Last administered on 05/14/18 07:57; Admin Dose 30 ML; Start 05/07/18 at 09:00 Epoetin Zen (Epogen (Esrd)) 20,000 units Tu@1700 SC Last administered on 05/12/18 17:36; Admin Dose 20,000 UNITS; Start 05/12/18 at 17:00 Norepinephrine 250 ml @ 1.875 mls/ hr TITRATE IV Last administered on 05/08/18 13:33; Admin Dose 33.75 MLS/HR; Start 05/08/18 at 03:00 Citric Acid/ Sodium Citrate (Bicitra) 30 ml Q8 PO Last administered on 05/14/18 t 14:04; Admin Dose 30 ML; Start 05/09/18 at 08:00 Phenylephrine HCl 80 mg/Dextrose 250 ml @ 18.75 mls/ hr TITRATE IV Last administered on 05/14/18 01:05; Admin Dose 16.88 MLS/HR; Start 05/09/18 at 12:30 [facility] This patient goldman... PRN PRN XX WOUND CARE; Start 05/09/18 at 17:00 Vancomycin HCl (Vancomycin Oral Syringe) 250 mg Q6 PO Last administered on 05/14/18 17:44; Admin Dose 250 MG; Start 05/12/18 at 00:00 Metronidazole 100 ml @ 100 mls/hr Q8 IVPB Last administered on 05/14/18 14:04; Admin Dose 100 MLS/HR; Start 05/11/18 at 20:00 Sodium Bicarbonate 150 meq/Dextrose 1,150 ml @ 50 mls/hr Q23H IV Last administered on 05/14/18 06:42; Admin Dose 75 MLS/HR; Start 05/12/18 at 08:00 Collagenase (Santyl) 1 applic DAILY TOP Last administered on 05/14/18 07:57; Admin Dose 1 APPLIC; Start 05/13/18 at 09:00 Propofol 100 ml @ 2.64 mls/hr Q12H IV Last administered on 05/14/18 13:07; Admin Dose 15.84 MLS/HR; Start 05/12/18 at 18:30 Albuterol (Ventolin Hfa) 4 puff Q6H RESP THERAPY INH Last administered on 05/14/18 15:24; Admin Dose 4 PUFF; Start 05/12/18 at 20:00 Ipratropium [place] (Atrovent Hfa) 4 puff Q6H RESP THERAPY INH Last administered on 05/14/18 15:24; Admin Dose 4 PUFF; Start 05/12/18 at 20:00 Meropenem/Sodium Chloride 50 ml @ 100 mls/hr Q12 IVPB Last administered on 05/14/18 11:06; Admin Dose 100 MLS/HR; Start 05/13/18 at 21:00 Linezolid 300 ml @ 300 mls/hr Q12 IVPB Last administered on 05/14/18 07:56; Admin Dose 300 MLS/HR; Start 05/13/18 at 14:30 QUINTEN UMAÑA MD May 14, 2018 19:05
--- NOTE | 2018-05-14 19:26 | CONS ---
[facility] HCIS Consult Follow-up Patient Name: Zuly Mcwilliams Unit Number: [id number] Date of : 1945 Patient Status: Admitted Inpatient Attending Doctor: Roland Giron MD Edit: CELESTINE SANCHEZ M.D. 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 colonization of the airway by pseudomonas and ESBL+klebsiella - h/o possible, recurrent HCAP due to pseudomonas and ESBL+klebsiella - h/o recurrent HCAP due to MRSA and Enterobacter (culture of tracheal aspirate on 07/16/2017 that was collected at [facility]) . Pt took vancomycin and ceftazidime - h/o acute respiratory distress post-thoracentesis, resolved - h/o thoracentesis on 07/18/2017, transudative (protein <2, LDH 279) - h/o bleeding from the trach site - h/o septic shock due to pneumonia, ARDS, bacteremia, fungemia - h/o ARDS - h/o smoking - COPD - ILD # Cardiac - PAF, currently sinus tachycardia-sinus rhythm # GI - C diff colitis, diagnosed on 05/11/2018 - h/o intermittent diarrhea, Pt had multiple negative C. diff tests at [facility] at OSH in the past - dysphagia - h/o PEG placement 06/13/2018 - protein calorie malnutrition - h/o coffee ground emesis/UGIB 12/23/2017 due to deep ulceration of distal esophagus and gastritis on EGD 12/26/2017. No e/o H. pylori - h/o possible appendicitis on CT on 11/22/2017, Pt took ertapenem (11/24/2017- 12/01/2017) - h/o extensive adhesions lower abdominal and pelvis between small bowel to each other and to colon and to abdominal wall, anterior pelvic wall chronic abscess secondary to probably an old perforated diverticulitis, torsion of small bowel around these dense adhesion causing multiple obstructive points - h/o laparoscopic exploration and extensive lysis of adhesions and drainage of anterior pelvic wall abscess 09/16/2017. Cultures were negative, no e/o malignancy. 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 JADE Joshi requested that Claudia at [facility] test his strain of CRE against colistin, Avycaz, Zerbaxa, and Vabomere on 05/07/2018 - Hyponatremia - Hyperkalemia, now hypokalemia - Metabolic acidosis - adrenal insufficiency - h/o vaginal bleed - h/o colonization of urinary tract by ESBL+klebsiella, VRE - h/o recurrent, symptomatic UTI due to carbapenem-resistant kleb (MDR strain) per urine culture 10/04/17, 10/09/17, 10/21/2017, P took colistin (10/09/2017- 10/15/2017), fosfomycin for carbapenemase-producing klebsiella and VRE on 10/25/2017 and 10/28/2017 - h/o funguria - h/o urinary retention # fungemia, bacteremia - h/o bacteremia due to coag negative Staph, probable contaminant as her WBC level improved initially without antibiotic - 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 improved. Probable manifestation of endocarditis. Pt declined MRI on 08/06/2017 - h/o infection of R toes due to pseudomonas. coagulase negative Staph likely a colonizer. resolved - h/o intertrigo of the groin, resolved with nystatin powder - h/o scabies, locally crusted lesion over L scapula, s/p permethrin cream and pGT ivermectin on 08/11/2017, 08/12/2017, 08/19/2017. Repeat skin scraping on 08/21/2017 was negative for scabies # psych, neuro - acute toxic metabolic encephalopathy - decreased hearing b/l - h/o critical illness polyneuropathy - anxiety/depression, bipolar d/o, seen by Psychiatry in the past - chronic pain syndrome - medical non-compliance: she would refuse her medications, treatment and straight catheterization at times # hematological, vascular - chronic anemia requiring blood transfusion intermittently - Macrocytic anemia - 3.1 cm AAA on imaging - PVD Recommendations: - pending: Blood culture x2 (NGTD), urine culture (NGTD), tracheal aspirate culture (not collected yesterday as ordered and I asked pt's RN to collect specimen) - continue renally dosed meropenem and linezolid for HCAP (05/13/2018-); no IV vancomycin due to acute on chronic renal disease - continue pGT vancomycin (05/11/2018-) and IV metronidazole (05/11/2018) for C diff colitis Management d/w RN Gerald and with Dr. Sanchez Critical care time was from [id number] (30 min) Consultation Date/Type/Reason Admit Date/Time May 06, 2018 at 17:38 Initial Consult Date 05/07/18 Type of Consult Infectious Disease Requesting Provider: ROLAND GIRON MD Date/Time of Note DATE: 05/14/18 TIME: 19:26 24 HR Interval Summary Free Text/Dictation Neosynephrine has been weaned down to 30 mcg/min, still with significant diarrhea (unable to maintain Flexiseal), R femoral HD catheter placed today with plans to start HD tomorrow per d/w INSPECTION CLERK. Subjective hx not possible: pt non-verbal, pt critical status Exam/Review of Systems Exam Vitals Vital Signs Date Temp Pulse Resp B/P (MAP) Pulse Ox O2 O2 Flow FiO2 Time Delivery Rate 05/14/18 77 29 107/67 18:15 (80) 05/14/18 97.4 98 Mechanical 18:00 Ventilator 05/14/18 40 17:30 05/12/18 4.0 17:00 Intake and Output 05/13/18 05/13/18 05/14/18 1515:00 23:00 07:00 IntakeIntake Total 1163.30 ml 1920.38 ml 1131.11 ml OutputOutput Total 360 ml 370 ml 350 ml BalanceBalance 803.30 ml 1550.38 ml 781.11 ml Constitutional: well developed, non-verbal, frail, obese, other (chronically debilitated, orally intubated and sedated) Head: normocephalic, atraumatic Eyes: nl conjunctiva, nl lids ENMT: nl external ears & nose, intubated, other (orally intubated) Neck: other (old trach site with open wound with clear secretions oozing beyond dressing) Respiratory: crackles/rales, other (on ventilator support, AC, FiO2 40%) Cardiovascular: regular rate and rhythm, nl pulses Gastrointestinal: soft, non-tender, bowel sounds; No distended Genitourinary - Female: other (Garza in place with yellow urine) Musculoskeletal: other (eschar on toes) Extremities: edema (all four extremities) Neurological: other (sedated with Diprivan) Skin: nl turgor, other (scabs on toes) Results Result Diagram: 05/14/184 05/14/18 0424 Results 24hrs Laboratory Tests Test 05/14/18 04:24 05/14/18 07:00 White Blood Count 15.4 H Red Blood Count 2.45 L Hemoglobin 8.2 L Hematocrit 26.0 L Mean Corpuscular Volume 106.1 H Mean Corpuscular Hemoglobin 33.5 H Mean Corpuscular Hemoglobin Concent 31.5 L Red Cell Distribution Width 17.6 H Platelet Count 205 Mean Platelet Volume 9.1 Immature Granulocytes % 1.000 H Neutrophils % Segmented Neutrophils % (Manual) 84 H Band Neutrophils % (Manual) 10 H Lymphocytes % Lymphocytes % (Manual) 3 L Reactive Lymphocytes % (Manual) 1 H Monocytes % Monocytes % (Manual) 1 Eosinophils % Eosinophils % (Manual) 1 Basophils % Nucleated Red Blood Cells % 0.0 Immature Granulocytes # 0.160 H Neutrophils # Neutrophils # (Manual) 13.2 H Band Neutrophils # 1.5 H Lymphocytes (Manual) 0.4 L Lymphocytes # Reactive Lymphocytes # 0.1 H Monocytes # Monocytes # (Manual) 0.1 L Eosinophils # Basophils # Nucleated Red Blood Cells # Platelet Estimate NORMAL Polychromasia 2+ Poikilocytosis 1+ Anisocytosis 1+ Macrocytosis 1+ Target Cells 1+ Sodium Level 139 Potassium Level 3.5 Chloride Level 100 Carbon Dioxide Level 24 Anion Gap 15 H Blood Urea Nitrogen 116 H Creatinine 2.51 H Est Glomerular Filtrat Rate mL/min Glucose Level 115 Calcium Level 8.0 L Phosphorus Level 4.2 Magnesium Level 1.6 L Blood Gas Specimen Source Blood arterial Arterial Blood Date Drawn 05/14/2018 7:12:02 AM Arterial Blood pH (Temp corrected) 7.289 *L Arterial Blood pCO2 (Temp correct) 51.2 H Arterial Blood pO2 (Temp corrected) 84.1 Arterial Blood HCO3 24.0 Arterial Blood Base Excess -2.9 Arterial Blood Oxygen Saturation 95.3 Steven Test ACCEPTAB Arterial Blood Gas Puncture Site Right Radial Arterial Blood Carboxyhemoglobin 1.3 Arterial Blood Methemoglobin 0.2 Blood Gas A-a O2 Differential 142.2 H Oxyhemoglobin Percent 93.9 Blood Gas Temperature 37.0 Blood Gas Respiration Rate 20.0 Blood Gas Actual Respiration Rate 20 Blood Gas Modality VENT - AC FiO2 40.0 Blood Gas Tidal Volume 500.0 Blood Gas Low PEEP Setting 5.0 Blood Gas Critical Value Read Back AMADOR RN Blood Gas Notified Whom TM Blood Gas Notified Time 05/14/2018 7:46:38 AM Imaging Imaging CXR 05/14/2018: IMPRESSION: Increased bilateral interstitial and alveolar infiltrates concerning for edema, multifocal pneumonia, or pneumonitis Medications Medication Current Medications IV Flush (NS 10 ml) 10 ml PRN IV ; Start 05/06/18 at 20:30 Ascorbic Acid (Vitamin C) 500 mg DAILY GTB Last administered on 05/14/18 07:57; Admin Dose 500 MG; Start 05/07/18 at 09:00 Albuterol/ Ipratropium (Duoneb) 3 ml Q2H RESP THERAPY PRN HHN SHORTNESS OF BREATH; Start 05/06/18 at 23:30 Lorazepam (Ativan Intensol) 0.5 mg Q6H PRN PEG ANXIETY; Start 05/06/18 at 23:30 Zinc Sulfate (Zinc Sulfate) 220 mg DAILY GTB Last administered on 05/14/18 07:57; Admin Dose 220 MG; Start 05/07/18 at 09:00 Ondansetron HCl (Zofran Tab) 4 mg Q6H PRN GTB NAUSEA AND/OR VOMITING; Start 05/07/18 at 00:15 Multivitamins (Multivitamin) 30 ml DAILY GTB Last administered on 05/14/18 07:57; Admin Dose 30 ML; Start 05/07/18 at 09:00 Epoetin Zen (Epogen (Esrd)) 20,000 units Tu@1700 SC Last administered on 05/12/18 17:36; Admin Dose 20,000 UNITS; Start 05/12/18 at 17:00 Norepinephrine 250 ml @ 1.875 mls/ hr TITRATE IV Last administered on 05/08/18 13:33; Admin Dose 33.75 MLS/HR; Start 05/08/18 at 03:00 Citric Acid/ Sodium Citrate (Bicitra) 30 ml Q8 PO Last administered on 05/14/18 14:04; Admin Dose 30 ML; Start 05/09/18 at 08:00 Phenylephrine HCl 80 mg/Dextrose 250 ml @ 18.75 mls/ hr TITRATE IV Last administered on 05/14/18 01:05; Admin Dose 16.88 MLS/HR; Start 05/09/18 at 12:30 Miscellaneous Information (Pending Santyl Order For Wound Care) This patient goldman... PRN PRN XX WOUND CARE; Start 05/09/18 at 17:00 Vancomycin HCl (Vancomycin Oral Syringe) 250 mg Q6 PO Last administered on 05/14/18 17:44; Admin Dose 250 MG; Start 05/12/18 at 00:00 Metronidazole 100 ml @ 100 mls/hr Q8 IVPB Last administered on 05/14/18 14:04; Admin Dose 100 MLS/HR; Start 05/11/18 at 20:00 Sodium Bicarbonate 150 meq/Dextrose 1,150 ml @ 50 mls/hr Q23H IV Last administered on 05/14/18 06:42; Admin Dose 75 MLS/HR; Start 05/12/18 at 08:00 Collagenase (Santyl) 1 applic DAILY TOP Last administered on 05/14/18 07:57; Admin Dose 1 APPLIC; Start 05/13/18 at 09:00 Propofol 100 ml @ 2.64 mls/hr Q12H IV Last administered on 05/14/18 13:07; Admin Dose 15.84 MLS/HR; Start 05/12/18 at 18:30 Albuterol (Ventolin Hfa) 4 puff Q6H RESP THERAPY INH Last administered on 05/14/18 15:24; Admin Dose 4 PUFF; Start 05/12/18 at 20:00 Ipratropium [place] (Atrovent Hfa) 4 puff Q6H RESP THERAPY INH Last administered on 05/14/18 15:24; Admin Dose 4 PUFF; Start 05/12/18 at 20:00 Meropenem/Sodium Chloride 50 ml @ 100 mls/hr Q12 IVPB Last administered on 04/18 11:06; Admin Dose 100 MLS/HR; Start 05/13/18 at 21:00 Linezolid 300 ml @ 300 mls/hr Q12 IVPB Last administered on 05/14/18at 07:56; Admin Dose 300 MLS/HR; Start 05/13/18 at 14:30 Cholestyramine Resin (Questran Light) 4 gm BID PO ; Start 05/14/18 at 21:00 LAURA JOSHI NP May 14, 2018 19:26
[2018-05-15] VITALS (83 sets, daily range): BP systolic 75–151; BP diastolic 32–81; PULSE 79–118; RESP 10–27
[2018-05-15] MEDS: PROPOFOL 100 ML IV SCH ×5 (00:29→23:25)
[2018-05-15] MEDS: SODIUM BICARBONATE (IV ADD) 150 MEQ in DEXTROSE 5% 1,000 ML IV SCH (00:29)
[2018-05-15] MEDS: CHOLESTYRAMINE (LIGHT) 4 GM PACKET PO SCH ×3 (01:28→21:28)
[2018-05-15] MEDS: ALBUTEROL HFA 8 GM INHALER INH SCH ×4 (01:35→22:15)
[2018-05-15] MEDS: IPRATROPIUM (HFA) 12.9 GM INHALER INH SCH ×3 (01:35→21:15)
[2018-05-15] MEDS: PHENYLephrine 80 MG in DEXTROSE 5% 242 ML IV SCH (01:50)
[2018-05-15] MEDS: metroNIDAZOLE 500 MG/NS (PMX) 100 ML IVPB SCH ×3 (05:41→22:12)
[2018-05-15] MEDS: VANCOMYCIN HCL 250 MG/5ML POSYG PO SCH ×4 (05:41→23:46)
[2018-05-15] MEDS: CITRIC ACID/NA CITRATE 30 ML CUP PO SCH ×3 (05:41→21:27)
[2018-05-15] MEDS: SOD CHLORIDE 0.9% 1,000 ML IV SCH (08:36)
[2018-05-15] MEDS: MEROPENEM 500MG/50 ML (PMX) 50 ML IVPB SCH ×2 (08:37→21:28)
[2018-05-15] MEDS: ZINC SULFATE 220 MG CAP GTB SCH (08:40)
[2018-05-15] MEDS: MULTIVITAMINS 30 ML CUP GTB SCH (08:40)
[2018-05-15] MEDS: ASCORBIC ACID 500 MG TAB GTB SCH (08:40)
--- NOTE | 2018-05-15 08:41 | PN ---
DATE: 05/15/2018 SUBJECTIVE: The patient remains critically ill on pressor support, on full ventilatory support. The patient had a Juan catheter placed. Anticipate hemodialysis today for volume removal and solute clearance. No other events noted. No hemoptysis, hematemesis, hematochezia. OBJECTIVE: VITAL SIGNS: Blood pressure is 110/59, respiration 18, pulse 83, temperature 98.6. HEENT: Head is normocephalic. NECK: Supple. HEART: Regular rate. LUNGS: Show diminished breath sounds at the base. ABDOMEN: Soft, nontender to palpation without rebound or guarding. EXTREMITIES: Negative for clubbing, cyanosis. Positive edema, diffuse anasarca. DERMATOLOGIC: No rashes. MUSCULOSKELETAL: No joint effusions. NEUROLOGIC: No change in exam. MEDICATIONS: Reviewed. LABORATORY DATA: From 05/15/2018 was reviewed. IMAGING: The patient's chest x-ray from 05/14/2018 was reviewed, shows alveolar infiltrates concerni ng for edema, increasing. ASSESSMENT AND PLAN: 1. Nonoliguric acute kidney injury on top of chronic kidney disease with previous baseline creatinin e of 2.5 mg/dL. Etiology of acute kidney injury is secondary to shock, sepsis, hemodynamics. The wiley still's renal function has been fluctuating. The patient continues to have significant acidemia and is diffusely volume overloaded. The patient therefore will be initiated on dialysis for volume remov al and solute clearance. Would otherwise continue current treatment plan. Continue to renally dose all meds, avoid nephrotoxins, continue pressor support and keep MAP above 65. Continue antibiotic th erapy. 2. Metabolic acidosis. The patient's ABG was reviewed. Anticipate dialysis on a 35 bicarbonate bat h. The patient currently on bicarbonate drip. Will discontinue. 3. Anemia. Monitor hemoglobin and hematocrit levels. 4. Mineral bone disorder. Monitor calcium and phosphorus levels. 5. Volume overload. The patient has diffuse anasarca, pulmonary congestion. Anticipate ultrafiltra tion with dialysis if remains hemodynamically stable. 6. Septic shock secondary to urinary tract infection, pneumonia. Continue current antibiotic regime n. Continue pressor support. 7. Tachyarrhythmia. Continue to monitor. 8. Ventilator-dependent respiratory failure. Vent settings and ABG was reviewed. Continue to monit or. 8. Dysphagia status post PEG. Continue tube feeding. 9. Acute encephalopathy, etiology is toxic metabolic. 10. Decompensated heart failure. Continue medical management. Please note I spent over 30 minutes of critical care time with this patient. Dictated By: JEANA BANSAL DO NR/TABATHA Conf#: [id number] DID#: [id number] CC: ROLAND GIRON MD;*EndCC*
[2018-05-15] MEDS: BALSAM PERU/CASTOR OIL 60 GM TUBE TOP SCH ×2 (08:45→21:29)
[2018-05-15] MEDS: COLLAGENASE 5 GM (UD JAR) TOP SCH (08:46)
[2018-05-15] MEDS: POTASSIUM CHLORIDE 100 ML IVPB SCH ×2 (08:50→13:01)
[2018-05-15] MEDS: LINEZOLID 600 MG/300 ML (PMX) 300 ML IVPB SCH ×2 (08:52→21:28)
--- NOTE | 2018-05-15 12:19 | CONS ---
Consult Date/Type/Reason Admit Date/Time May 06, 2018 at 17:38 Initial Consult Date 05/10/18 Type of Consult Pulmonary Requesting Provider: ROLAND GIRON MD Date/Time of Note DATE: 05/15/18 TIME: 12:18 Subjective Patient appears comfortable this morning intubated sedated on mechanical ventilation receiving hemodialysis. Objective Vital Signs Date Temp Pulse Resp B/P (MAP) Pulse Ox O2 O2 Flow FiO2 Time Delivery Rate 05/15/18 87 12:00 05/15/18 21 147/62 96 Mechanical 10:45 (90) Ventilator 05/15/18 97.8 08:00 05/15/18 40 05:50 05/12/18 4.0 17:00 Intake and Output 05/14/18 05/14/18 05/15/18 1515:00 23:00 07:00 IntakeIntake Total 970 ml 985.84 ml 943.06 ml OutputOutput Total 310 ml 420 ml 485 ml BalanceBalance 660 ml 565.84 ml 458.06 ml Exam GENERAL: Chronically ill-appearing lady orally intubated on mechanical ventil ation VITAL SIGNS: per chart NECK: Supple. No JVD or lymphadenopathy. CARDIAC EXAM: S1, S2. No added sounds or murmurs. CHEST: Diminished air entry bilaterally with rales ABDOMEN: Soft, nontender. No guarding or rebound. EXTREMITIES: No cyanosis, clubbing edema +1 NEUROLOGIC: Sedated and unable to assess Vent Setting Ventilator Support Mode: AC Fraction of Inspired Oxygen pe: 40 Positive End Expiratory Pressu: 5.0 Results/Medications Result Diagram: 05/15/18 0400 05/15/18 0400 Results 24 hrs Laboratory Tests Test 05/15/18 04:00 05/15/18 10:32 White Blood Count 11.7 #H Red Blood Count 2.66 L Hemoglobin 8.8 L Hematocrit 27.7 L Mean Corpuscular Volume 104.1 H Mean Corpuscular Hemoglobin 33.1 H Mean Corpuscular Hemoglobin Concent 31.8 L Red Cell Distribution Width 17.7 H Platelet Count 181 Mean Platelet Volume 9.4 Immature Granulocytes % 0.600 H Neutrophils % Segmented Neutrophils % (Manual) 70 Band Neutrophils % (Manual) 16 H Lymphocytes % Lymphocytes % (Manual) 6 L Monocytes % Monocytes % (Manual) 3 Eosinophils % Eosinophils % (Manual) 5 Basophils % Nucleated Red Blood Cells % 0.0 Immature Granulocytes # 0.070 H Neutrophils # Neutrophils # (Manual) 8.4 H Band Neutrophils # 1.8 H Lymphocytes (Manual) 0.7 L Lymphocytes # Monocytes # Monocytes # (Manual) 0.3 Eosinophils # Basophils # Nucleated Red Blood Cells # Platelet Estimate NORMAL Polychromasia 1+ Poikilocytosis 2+ Anisocytosis 1+ Macrocytosis 1+ Target Cells 1+ Sodium Level 139 Potassium Level 3.2 L Chloride Level 98 Carbon Dioxide Level 26 Anion Gap 15 H Blood Urea Nitrogen 113 H Creatinine 2.40 H Est Glomerular Filtrat Rate mL/min Glucose Level 100 Calcium Level 8.0 L Phosphorus Level 4.3 Magnesium Level 1.9 Hepatitis B Surface Antigen NEGATIVE Medications Current Medications IV Flush (NS 10 ml) 10 ml PRN IV ; Start 05/06/18 at 20:30 Ascorbic Acid (Vitamin C) 500 mg DAILY GTB Last administered on 05/15/18at 08:40; Admin Dose 500 MG; Start 05/07/18 at 09:00 Albuterol/ Ipratropium (Duoneb) 3 ml Q2H RESP THERAPY PRN HHN SHORTNESS OF BREATH; Start 05/06/18 at 23:30 Lorazepam (Ativan Intensol) 0.5 mg Q6H PRN PEG ANXIETY; Start 05/06/18 at 23:30 Zinc Sulfate (Zinc Sulfate) 220 mg DAILY GTB Last administered on 05/15/18at 08:40; Admin Dose 220 MG; Start 05/07/18 at 09:00 Ondansetron HCl (Zofran Tab) 4 mg Q6H PRN GTB NAUSEA AND/OR VOMITING; Start 05/07/18 at 00:15 Multivitamins (Multivitamin) 30 ml DAILY GTB Last administered on 05/15/18 08:40; Admin Dose 30 ML; Start 05/07/18 at 09:00 Epoetin Zen (Epogen (Esrd)) 20,000 units Tu@1700 SC Last administered on 05/12/18at 17:36; Admin Dose 20,000 UNITS; Start 05/12/18 at 17:00 Norepinephrine 250 ml @ 1.875 mls/ hr TITRATE IV Last administered on 05/08/18at 13:33; Admin Dose 33.75 MLS/HR; Start 05/08/18 at 03:00 Citric Acid/ Sodium Citrate (Bicitra) 30 ml Q8 PO Last administered on 05/15/18 05:41; Admin Dose 30 ML; Start 05/09/18 at 08:00 Phenylephrine HCl 80 mg/Dextrose 250 ml @ 18.75 mls/ hr TITRATE IV Last administered on 05/15/18 01:50; Admin Dose 5.63 MLS/HR; Start 05/09/18 at 12:30 Miscellaneous Information (Pending Santyl Order For Wound Care) This patient goldman... PRN PRN XX WOUND CARE; Start 05/09/18 at 17:00 Vancomycin HCl (Vancomycin Oral Syringe) 250 mg Q6 PO Last administered on 04/18 05:41; Admin Dose 250 MG; Start 05/12/18 at 00:00 Metronidazole 100 ml @ 100 mls/hr Q8 IVPB Last administered on 05/15/18 05:41; Admin Dose 100 MLS/HR; Start 05/11/18 at 20:00 Collagenase (Santyl) 1 applic DAILY TOP Last administered on 05/15/18 08:46; Admin Dose 1 APPLIC; Start 05/13/18 at 09:00 Propofol 100 ml @ 2.64 mls/hr Q12H IV Last administered on 05/15/18 11:57; Admin Dose 15.84 MLS/HR; Start 05/12/18 at 18:30 Albuterol (Ventolin Hfa) 4 puff Q6H RESP THERAPY INH Last administered on 05/15/18 07:57; Admin Dose 4 PUFF; Start 05/12/18 at 20:00 Ipratropium [place] (Atrovent Hfa) 4 puff Q6H RESP THERAPY INH Last administered on 05/15/18 07:57; Admin Dose 4 PUFF; Start 05/12/18 at 20:00 Meropenem/Sodium Chloride 50 ml @ 100 mls/hr Q12 IVPB Last administered on 05/15/18 08:37; Admin Dose 100 MLS/HR; Start 05/13/18 at 21:00 Linezolid 300 ml @ 300 mls/hr Q12 IVPB Last administered on 05/15/18 08:52; Admin Dose 300 MLS/HR; Start 05/13/18 at 14:30 Cholestyramine Resin (Questran Light) 4 gm BID PO Last administered on 05/15/18at 01:28; Admin Dose 4 GM; Start 05/14/18 at 21:00 Sodium Chloride 1,000 ml @ 50 mls/hr Q20H IV Last administered on 05/15/18at 08:36; Admin Dose 50 MLS/HR; Start 05/15/18 at 08:00 Assessment/Plan Hospital Course (Demo Recall) IMP: 1. Septic shock likely secondary to recent UTI now C. difficile colitis 2. Acute Renal Failure--likely non-oliguric ATN 3. Resolved metabolic acidosis 4. Encephalopathy--toxic-metabolic 2/2 infection and ARF, in addition to baseline 5. Anemia--r/o acute GIB 6. H/O abdominal abscess 7. Acute hypoxemic respiratory failure requiring intubation and mechanical ventilation. History of tracheostomy with decannulation 1 month ago.. RECS: 1. IV fluids per nephrology 2. Continue mechanical ventilation 3. Abx as per ID 4. Continue tube feeding as tolerated 5. Aspiration precautions pulmonary toilet 6. Monitor H&H post transfusion 7. Renal recommendations Continue supportive care, Critical care time 40 minutes. LAURA JENKINS MD, [facility] May 15, 2018 12:18
[2018-05-15] MEDS ORDERED: HEPARIN 1000 UNITS/ML 10 ML INJ CATHETER ONE (12:30)
--- NOTE | 2018-05-15 13:13 | CONS ---
Assessment/Plan Assessment/Plan Hospital Course (Demo Recall) # sepsis, SIRS, pulmonary - septic shock due to pneumonia and C diff colitis. 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 colonization of the airway by pseudomonas and ESBL+klebsiella - h/o possible, recurrent HCAP due to pseudomonas and ESBL+klebsiella - h/o recurrent HCAP due to MRSA and Enterobacter (culture of tracheal aspirate on 07/16/2017 that was collected at [facility]) . Pt took vancomycin and ceftazidime - h/o acute respiratory distress post-thoracentesis, resolved - h/o thoracentesis on 07/18/2017, transudative (protein <2, LDH 279) - h/o bleeding from the trach site - h/o septic shock due to pneumonia, ARDS, bacteremia, fungemia - h/o ARDS - h/o smoking - COPD - ILD # Cardiac - PAF, currently sinus tachycardia # GI - C diff colitis, diagnosed on 05/11/2018 - h/o intermittent diarrhea, Pt had multiple negative C. diff tests at [facility] at [facility]SH in the past - dysphagia - h/o PEG placement 06/13/2018 - protein calorie malnutrition - h/o coffee ground emesis/UGIB 12/23/2017 due to deep ulceration of distal esophagus and gastritis on EGD 12/26/2017. No e/o H. pylori - h/o possible appendicitis on CT on 11/22/2017, Pt took ertapenem (11/24/2017- 12/01/2017) - h/o extensive adhesions lower abdominal and pelvis between small bowel to each other and to colon and to abdominal wall, anterior pelvic wall chronic abscess secondary to probably an old perforated diverticulitis, torsion of small bowel around these dense adhesion causing multiple obstructive points - h/o laparoscopic exploration and extensive lysis of adhesions and drainage of anterior pelvic wall abscess 09/16/2017. Cultures were negative, no e/o malignancy. Pt took pip/tazo (09/16/2017-09/26/2017) - h/o partial obstruction mid jejunum in L anterior central pelvis with suggestion of a 3 cm soft tissue mass on CT 08/28/2017 - h/o internal stomal deep ulcer behind the internal bumper, gastritis and esophagitis, Rodriguez's cannot be ruled out, per EGD with biopsy 07/23/2017 - h/o GIB s/p flex sig showed polyp; stool OB negative on 06/29/17 - h/o stool OB positive status - h/o SBO and ileus due to pain meds - h/o EGD and exchange of PEG on 09/01/2017 - h/o mildly elevated CEA # renal/ - recurrent NATHAN on CKD - started on HD on 05/15/2018, via Kem in R groin - 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 JADE Villareal requested that Claudia talbot Micro test his strain of CRE against colistin, Avycaz, Zerbaxa, and Vabomere on 05/07/2018 - Hyponatremia - Hyperkalemia, now hypokalemia - Metabolic acidosis - adrenal insufficiency - h/o vaginal bleed - h/o colonization of urinary tract by ESBL+klebsiella, VRE - h/o recurrent, symptomatic UTI due to carbapenem-resistant kleb (MDR strain) per urine culture 10/04/17, 10/09/17, 10/21/2017, P took colistin (10/09/2017- 10/15/2017), fosfomycin for carbapenemase-producing klebsiella and VRE on 10/25/2017 and 10/28/2017 - h/o funguria - h/o urinary retention # fungemia, bacteremia - h/o bacteremia due to coag negative Staph, probable contaminant as her WBC level improved initially without antibiotic - 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 improved. Probable manifestation of endocarditis. Pt declined MRI on 08/06/2017 - h/o infection of R toes due to pseudomonas. coagulase negative Staph likely a colonizer. resolved - h/o intertrigo of the groin, resolved with nystatin powder - h/o scabies, locally crusted lesion over L scapula, s/p permethrin cream and pGT ivermectin on 08/11/2017, 08/12/2017, 08/19/2017. Repeat skin scraping on 08/21/2017 was negative for scabies # psych, neuro - acute toxic metabolic encephalopathy - decreased hearing b/l - h/o critical illness polyneuropathy - anxiety/depression, bipolar d/o, seen by Psychiatry in the past - chronic pain syndrome - medical non-compliance: she would refuse her medications, treatment and strai ght catheterization at times # hematological, vascular - chronic anemia requiring blood transfusion intermittently - Macrocytic anemia - 3.1 cm AAA on imaging - PVD recommendations: - pending: Blood culture x2 (05/13/2018-), tracheal aspirate culture (05/14/2018) - continue renally dosed meropenem and linezolid for HCAP (05/13/2018-); no IV vancomycin due to acute on chronic renal disease. Will monitor CBC - continue pGT vancomycin (05/11/2018-) and IV metronidazole (05/11/2018) for C diff colitis management d/w Pt's JAYANT Birch the critical care time I took to care for this Pt today [place] [id number] to [id number] Consultation Date/Type/Reason Admit Date/Time May 06, 2018 at 17:38 Initial Consult Date 05/10/18 Type of Consult ID Requesting Provider: ROLAND GIRON MD Date/Time of Note DATE: 05/15/18 TIME: 13:10 24 HR Interval Summary Subjective hx not possible: pt non-verbal, pt critical, pt critical status Exam/Review of Systems Exam Vitals Vital Signs Date Temp Pulse Resp B/P (MAP) Pulse Ox O2 O2 Flow FiO2 Time Delivery Rate 05/15/18 88 20 119/52 98 Mechanical 12:48 (74) Ventilator 05/15/18 97.8 08:00 05/15/18 40 05:50 05/12/18 4.0 17:00 Intake and Output 05/14/18 05/14/18 05/15/18 1515:00 23:00 07:00 IntakeIntake Total 970 ml 985.84 ml 943.06 ml OutputOutput Total 310 ml 420 ml 485 ml BalanceBalance 660 ml 565.84 ml 458.06 ml Constitutional: non-verbal, frail Psych: confusion Head: normocephalic Eyes: nl conjunctiva, nl lids, nl sclera ENMT: nl external ears & nose, nl nasal mucosa & septum, intubated Neck: other (not swollen) Respiratory: crackles/rales Cardiovascular: edema, other (tachycardic and regular) Gastrointestinal: soft, non-tender Genitourinary - Female: other (FC, HD catheter in R groin) Musculoskeletal: nl extremities to inspection Extremities: edema Neurological: lethargic, unresponsive Skin: other (no new rashes) Results Result Diagram: 05/15/18 0400 05/15/18 0400 Results 24hrs Laboratory Tests Test 05/15/18 04:00 05/15/18 10:32 White Blood Count 11.7 #H Red Blood Count 2.66 L Hemoglobin 8.8 L Hematocrit 27.7 L Mean Corpuscular Volume 104.1 H Mean Corpuscular Hemoglobin 33.1 H Mean Corpuscular Hemoglobin Concent 31.8 L Red Cell Distribution Width 17.7 H Platelet Count 181 Mean Platelet Volume 9.4 Immature Granulocytes % 0.600 H Neutrophils % Segmented Neutrophils % (Manual) 70 Band Neutrophils % (Manual) 16 H Lymphocytes % Lymphocytes % (Manual) 6 L Monocytes % Monocytes % (Manual) 3 Eosinophils % Eosinophils % (Manual) 5 Basophils % Nucleated Red Blood Cells % 0.0 Immature Granulocytes # 0.070 H Neutrophils # Neutrophils # (Manual) 8.4 H Band Neutrophils # 1.8 H Lymphocytes (Manual) 0.7 L Lymphocytes # Monocytes # Monocytes # (Manual) 0.3 Eosinophils # Basophils # Nucleated Red Blood Cells # Platelet Estimate NORMAL Polychromasia 1+ Poikilocytosis 2+ Anisocytosis 1+ Macrocytosis 1+ Target Cells 1+ Sodium Level 139 Potassium Level 3.2 L Chloride Level 98 Carbon Dioxide Level 26 Anion Gap 15 H Blood Urea Nitrogen 113 H Creatinine 2.40 H Est Glomerular Filtrat Rate mL/min Glucose Level 100 Calcium Level 8.0 L Phosphorus Level 4.3 Magnesium Level 1.9 Hepatitis B Surface Antigen NEGATIVE Hepatitis B Surface Antibody POSITIVE H Medications Medication Current Medications IV Flush (NS 10 ml) 10 ml PRN IV ; Start 05/06/18 at 20:30 Ascorbic Acid (Vitamin C) 500 mg DAILY GTB Last administered on 05/15/18 08:40; Admin Dose 500 MG; Start 05/07/18 at 09:00 Albuterol/ Ipratropium (Duoneb) 3 ml Q2H RESP THERAPY PRN HHN SHORTNESS OF BREATH; Start 05/06/18 at 23:30 Lorazepam (Ativan Intensol) 0.5 mg Q6H PRN PEG ANXIETY; Start 05/06/18 at 23:30 Zinc Sulfate (Zinc Sulfate) 220 mg DAILY GTB Last administered on 05/15/18 08:40; Admin Dose 220 MG; Start 05/07/18 at 09:00 Ondansetron HCl (Zofran Tab) 4 mg Q6H PRN GTB NAUSEA AND/OR VOMITING; Start 05/07/18 at 00:15 Multivitamins (Multivitamin) 30 ml DAILY GTB Last administered on 05/15/18 08:40; Admin Dose 30 ML; Start 05/07/18 at 09:00 Epoetin Zen (Epogen (Esrd)) 20,000 units Tu@1700 SC Last administered on 05/12/18 17:36; Admin Dose 20,000 UNITS; Start 05/12/18 at 17:00 Norepinephrine 250 ml @ 1.875 mls/ hr TITRATE IV Last administered on 05/08/18 13:33; Admin Dose 33.75 MLS/HR; Start 05/08/18 at 03:00 Citric Acid/ Sodium Citrate (Bicitra) 30 ml Q8 PO Last administered on 05/15/18 05:41; Admin Dose 30 ML; Start 05/09/18 at 08:00 Phenylephrine HCl 80 mg/Dextrose 250 ml @ 18.75 mls/ hr TITRATE IV Last a dministered on 05/15/18 01:50; Admin Dose 5.63 MLS/HR; Start 05/09/18 at 12:30 Miscellaneous Information (Pending Santyl Order For Wound Care) This patient goldman... PRN PRN XX WOUND CARE; Start 05/09/18 at 17:00 Vancomycin HCl (Vancomycin Oral Syringe) 250 mg Q6 PO Last administered on 05/15/18 12:58; Admin Dose 250 MG; Start 05/12/18 at 00:00 Metronidazole 100 ml @ 100 mls/hr Q8 IVPB Last administered on 05/15/18 05:41; Admin Dose 100 MLS/HR; Start 05/11/18 at 20:00 Collagenase (Santyl) 1 applic DAILY TOP Last administered on 05/15/18 08:46; Admin Dose 1 APPLIC; Start 05/13/18 at 09:00 Propofol 100 ml @ 2.64 mls/hr Q12H IV Last administered on 05/15/18 11:57; Admin Dose 15.84 MLS/HR; Start 05/12/18 at 18:30 Albuterol (Ventolin Hfa) 4 puff Q6H RESP THERAPY INH Last administered on 05/15/18 07:57; Admin Dose 4 PUFF; Start 05/12/18 at 20:00 Ipratropium [place] (Atrovent Hfa) 4 puff Q6H RESP THERAPY INH Last administered on 05/15/18 07:57; Admin Dose 4 PUFF; Start 05/12/18 at 20:00 Meropenem/Sodium Chloride 50 ml @ 100 mls/hr Q12 IVPB Last administered on 05/15/18 08:37; Admin Dose 100 MLS/HR; Start 05/13/18 at 21:00 Linezolid 300 ml @ 300 mls/hr Q12 IVPB Last administered on 05/15/18 08:52; Admin Dose 300 MLS/HR; Start 05/13/18 at 14:30 Cholestyramine Resin (Questran Light) 4 gm BID PO Last administered on 05/15/18 01:28; Admin Dose 4 GM; Start 05/14/18 at 21:00 Sodium Chloride 1,000 ml @ 50 mls/hr Q20H IV Last administered on 05/15/18at 08:36; Admin Dose 50 MLS/HR; Start 05/15/18 at 08:00 CELESTINE MURPHY M.D. May 15, 2018 13:13
--- NOTE | 2018-05-15 14:13 | PN ---
Date/Time of Note Date/Time of Note DATE: 05/15/18 TIME: 14:12 Assessment/Plan VTE Prophylaxis Risk score (from [facility] [place])>0 risk: 12 SCD applied (from [facility] [place]): No SCD contraindicated: other Pharmacological prophylaxis: other Pharm contraindication: other Lines/Catheters IV Catheter Type (from [facility]): Juan Central line still needed: Yes Urinary Cath still in place: Yes Reason Cath still needed: urinary retention Assessment/Plan Assessment/Plan - Hypokalemia- replace K. fu BMP am -Septic shock secondary to urinary tract infection, anterior neck soft tissue infection, and C. difficile colitis. Continue pressors for hemodynamic support, IV fluids, antibiotics per ID. Dr. Black is following in infection disease consultation. -Acute respiratory failure requiring intubation and ventilatory support. Dr. Lambert is following in pulmonology consultation. -Acute kidney injury on chronic kidney disease. Plan for initiating hemodialysis. Dr. Mckeon is following in nephrology consultation. -Metabolic acidosis, resolved. -Acute diastolic congestive heart failure. Dr. Scanlon is following in cardiology consultation. -Paroxysmal atrial fibrillation, remains sinus rhythm -COPD -Dysphagia with PEG. -G-tube mild malfunction, changed by GI Dr. Carolina is following in gastr oenterology consultation. -Obesity Critical care time spent is 30 minutes. Further recommendations based on clinical course. Plan of care discussed with Dr. Eisenberg. Result Diagram: 05/15/18 0400 05/15/18 0400 Results 24hrs Laboratory Tests Test 05/15/18 04:00 05/15/18 10:32 White Blood Count 11.7 #H Red Blood Count 2.66 L Hemoglobin 8.8 L Hematocrit 27.7 L Mean Corpuscular Volume 104.1 H Mean Corpuscular Hemoglobin 33.1 H Mean Corpuscular Hemoglobin Concent 31.8 L Red Cell Distribution Width 17.7 H Platelet Count 181 Mean Platelet Volume 9.4 Immature Granulocytes % 0.600 H Neutrophils % Segmented Neutrophils % (Manual) 70 Band Neutrophils % (Manual) 16 H Lymphocytes % Lymphocytes % (Manual) 6 L Monocytes % Monocytes % (Manual) 3 Eosinophils % Eosinophils % (Manual) 5 Basophils % Nucleated Red Blood Cells % 0.0 Immature Granulocytes # 0.070 H Neutrophils # Neutrophils # (Manual) 8.4 H Band Neutrophils # 1.8 H Lymphocytes (Manual) 0.7 L Lymphocytes # Monocytes # Monocytes # (Manual) 0.3 Eosinophils # Basophils # Nucleated Red Blood Cells # Platelet Estimate NORMAL Polychromasia 1+ Poikilocytosis 2+ Anisocytosis 1+ Macrocytosis 1+ Target Cells 1+ Sodium Level 139 Potassium Level 3.2 L Chloride Level 98 Carbon Dioxide Level 26 Anion Gap 15 H Blood Urea Nitrogen 113 H Creatinine 2.40 H Est Glomerular Filtrat Rate mL/min Glucose Level 100 Calcium Level 8.0 L Phosphorus Level 4.3 Magnesium Level 1.9 Hepatitis B Surface Antigen NEGATIVE Hepatitis B Surface Antibody POSITIVE H Subjective 24 Hr Interval Summary Free Text/Dictation remains intubated and comfortable on pressors afebrile opens eyes at times dw staff Subjective hx not possible: pt non-verbal, pt critical status Constitutional: requiring IVF, requiring O2 Exam/Review of Systems Exam Vitals Vital Signs Date Temp Pulse Resp B/P (MAP) Pulse Ox O2 O2 Flow FiO2 Time Delivery Rate 05/15/18 88 20 119/52 98 Mechanical 12:48 (74) Ventilator 05/15/18 97.8 08:00 05/15/18 40 05:50 05/12/18 4.0 17:00 Intake and Output 05/14/18 05/14/18 05/15/18 1414:59 22:59 06:59 IntakeIntake Total 960 ml 1110.84 ml 988.06 ml OutputOutput Total 330 ml 380 ml 475 ml BalanceBalance 630 ml 730.84 ml 513.06 ml Constitutional: non-verbal, frail Psych: nl mood/affect Eyes: nl lids, nl sclera ENMT: nl external ears & nose Respiratory: clear to auscultation Cardiovascular: nl pulses, other (s1s2) Gastrointestinal: soft, non-tender Musculoskeletal: muscle weakness Extremities: normal pulses Neurological: confused Results Results 24hrs Laboratory Tests Test 05/15/18 04:00 05/15/18 10:32 White Blood Count 11.7 #H Red Blood Count 2.66 L Hemoglobin 8.8 L Hematocrit 27.7 L Mean Corpuscular Volume 104.1 H Mean Corpuscular Hemoglobin 33.1 H Mean Corpuscular Hemoglobin Concent 31.8 L Red Cell Distribution Width 17.7 H Platelet Count 181 Mean Platelet Volume 9.4 Immature Granulocytes % 0.600 H Neutrophils % Segmented Neutrophils % (Manual) 70 Band Neutrophils % (Manual) 16 H Lymphocytes % Lymphocytes % (Manual) 6 L Monocytes % Monocytes % (Manual) 3 Eosinophils % Eosinophils % (Manual) 5 Basophils % Nucleated Red Blood Cells % 0.0 Immature Granulocytes # 0.070 H Neutrophils # Neutrophils # (Manual) 8.4 H Band Neutrophils # 1.8 H Lymphocytes (Manual) 0.7 L Lymphocytes # Monocytes # Monocytes # (Manual) 0.3 Eosinophils # Basophils # Nucleated Red Blood Cells # Platelet Estimate NORMAL Polychromasia 1+ Poikilocytosis 2+ Anisocytosis 1+ Macrocytosis 1+ Target Cells 1+ Sodium Level 139 Potassium Level 3.2 L Chloride Level 98 Carbon Dioxide Level 26 Anion Gap 15 H Blood Urea Nitrogen 113 H Creatinine 2.40 H Est Glomerular Filtrat Rate mL/min Glucose Level 100 Calcium Level 8.0 L Phosphorus Level 4.3 Magnesium Level 1.9 Hepatitis B Surface Antigen NEGATIVE Hepatitis B Surface Antibody POSITIVE H Medications Medication Current Medications IV Flush (NS 10 ml) 10 ml PRN IV ; Start 05/06/18 at 20:30 Ascorbic Acid (Vitamin C) 500 mg DAILY GTB Last administered on 05/15/18at 08:40; Admin Dose 500 MG; Start 05/07/18 at 09:00 Albuterol/ Ipratropium (Duoneb) 3 ml Q2H RESP THERAPY PRN HHN SHORTNESS OF BREATH; Start 05/06/18 at 23:30 Lorazepam (Ativan Intensol) 0.5 mg Q6H PRN PEG ANXIETY; Start 05/06/18 at 23:30 Zinc Sulfate (Zinc Sulfate) 220 mg DAILY GTB Last administered on 05/15/18at 08:40; Admin Dose 220 MG; Start 05/07/18 at 09:00 Ondansetron HCl (Zofran Tab) 4 mg Q6H PRN GTB NAUSEA AND/OR VOMITING; Start 05/07/18 at 00:15 Multivitamins (Multivitamin) 30 ml DAILY GTB Last administered on 05/15/18at 08:40; Admin Dose 30 ML; Start 05/07/18 at 09:00 Epoetin Zen (Epogen (Esrd)) 20,000 units Tu@1700 SC Last administered on 05/12/18at 17:36; Admin Dose 20,000 UNITS; Start 05/12/18 at 17:00 Norepinephrine 250 ml @ 1.875 mls/ hr TITRATE IV Last administered on 05/08/18 13:33; Admin Dose 33.75 MLS/HR; Start 05/08/18 at 03:00 Citric Acid/ Sodium Citrate (Bicitra) 30 ml Q8 PO Last administered on 05/15/18 05:41; Admin Dose 30 ML; Start 05/09/18 at 08:00 Phenylephrine HCl 80 mg/Dextrose 250 ml @ 18.75 mls/ hr TITRATE IV Last administered on 05/15/18 01:50; Admin Dose 5.63 MLS/HR; Start 05/09/18 at 12:30 Miscellaneous Information (Pending Santyl Order For Wound Care) This patient goldman... PRN PRN XX WOUND CARE; Start 05/09/18 at 17:00 Vancomycin HCl (Vancomycin Oral Syringe) 250 mg Q6 PO Last administered on 05/15/18 12:58; Admin Dose 250 MG; Start 05/12/18 at 00:00 Metronidazole 100 ml @ 100 mls/hr Q8 IVPB Last administered on 05/15/18 05:41; Admin Dose 100 MLS/HR; Start 05/11/18 at 20:00 Collagenase (Santyl) 1 applic DAILY TOP Last administered on 05/15/18 08:46; Admin Dose 1 APPLIC; Start 05/13/18 at 09:00 Propofol 100 ml @ 2.64 mls/hr Q12H IV Last administered on 05/15/18 11:57; Admin Dose 15.84 MLS/HR; Start 05/12/18 at 18:30 Albuterol (Ventolin Hfa) 4 puff Q6H RESP THERAPY INH Last administered on 05/15/18 07:57; Admin Dose 4 PUFF; Start 05/12/18 at 20:00 Ipratropium [place] (Atrovent Hfa) 4 puff Q6H RESP THERAPY INH Last administered on 05/15/18 07:57; Admin Dose 4 PUFF; Start 05/12/18 at 20:00 Meropenem/Sodium Chloride 50 ml @ 100 mls/hr Q12 IVPB Last administered on 05/15/18 08:37; Admin Dose 100 MLS/HR; Start 05/13/18 at 21:00 Linezolid 300 ml @ 300 mls/hr Q12 IVPB Last administered on 05/15/18at 08:52; Admin Dose 300 MLS/HR; Start 05/13/18 at 14:30 Cholestyramine Resin (Questran Light) 4 gm BID PO Last administered on 05/15/18at 01:28; Admin Dose 4 GM; Start 05/14/18 at 21:00 Sodium Chloride 1,000 ml @ 50 mls/hr Q20H IV Last administered on 05/15/18at 08:36; Admin Dose 50 MLS/HR; Start 05/15/18 at 08:00 KERON MORAN May 15, 2018 14:12
--- NOTE | 2018-05-15 15:46 | CONS ---
Assessment/Plan Assessment/Plan Hospital Course (Demo Recall) Septic as well as hemorrhagic shock Hypotension on IV pressor Acute respiratory failure status post intubation Acute blood loss anemia Septic shock and hemorrhagic shock History of respiratory failure status post decannulation Preserved ejection fraction echocardiogram 05/10/2018 Paroxysmal atrial fibrillation, currently sinus rhythm Acute kidney injury -Vent management as per pulmonary -Titrate IV pressor to maintain SBP greater than 90 and/or map above 60. IV pressor requirements have been decreasing. -Fluid management as per renal, likely initiation of hemodialysis -Hold all antihypertensives and nephrotoxic medications -Antibiotics as per infectious disease Consultation Date/Type/Reason Admit Date/Time May 06, 2018 at 17:38 Initial Consult Date 05/10/18 Type of Consult Cardiology Requesting Provider: ROLAND GIRON MD Date/Time of Note DATE: 05/15/18 TIME: 15:45 24 HR Interval Summary Free Text/Dictation pt seen and examined Exam/Review of Systems Vital Signs Vitals Vital Signs Date Temp Pulse Resp B/P (MAP) Pulse Ox O2 O2 Flow FiO2 Time Delivery Rate 05/15/18 88 20 119/52 98 Mechanical 12:48 (74) Ventilator 05/15/18 97.8 08:00 05/15/18 40 05:50 05/12/18 4.0 17:00 Intake and Output 05/14/18 05/14/18 05/15/18 1515:00 23:00 07:00 IntakeIntake Total 970 ml 985.84 ml 943.06 ml OutputOutput Total 310 ml 420 ml 485 ml BalanceBalance 660 ml 565.84 ml 458.06 ml Exam Exam intubated, nad, undergoing HD Head: normocephalic ENMT: intubated Respiratory: other (course bs, no wheeze) Cardiovascular: regular rate and rhythm Gastrointestinal: soft, non-tender, bowel sounds Extremities: edema Labs Result Diagram: 05/15/18 0400 05/15/18 0400 Results 24hrs Laboratory Tests Test 05/15/18 04:00 05/15/18 10:32 White Blood Count 11.7 #H Red Blood Count 2.66 L Hemoglobin 8.8 L Hematocrit 27.7 L Mean Corpuscular Volume 104.1 H Mean Corpuscular Hemoglobin 33.1 H Mean Corpuscular Hemoglobin Concent 31.8 L Red Cell Distribution Width 17.7 H Platelet Count 181 Mean Platelet Volume 9.4 Immature Granulocytes % 0.600 H Neutrophils % Segmented Neutrophils % (Manual) 70 Band Neutrophils % (Manual) 16 H Lymphocytes % Lymphocytes % (Manual) 6 L Monocytes % Monocytes % (Manual) 3 Eosinophils % Eosinophils % (Manual) 5 Basophils % Nucleated Red Blood Cells % 0.0 Immature Granulocytes # 0.070 H Neutrophils # Neutrophils # (Manual) 8.4 H Band Neutrophils # 1.8 H Lymphocytes (Manual) 0.7 L Lymphocytes # Monocytes # Monocytes # (Manual) 0.3 Eosinophils # Basophils # Nucleated Red Blood Cells # Platelet Estimate NORMAL Polychromasia 1+ Poikilocytosis 2+ Anisocytosis 1+ Macrocytosis 1+ Target Cells 1+ Sodium Level 139 Potassium Level 3.2 L Chloride Level 98 Carbon Dioxide Level 26 Anion Gap 15 H Blood Urea Nitrogen 113 H Creatinine 2.40 H Est Glomerular Filtrat Rate mL/min Glucose Level 100 Calcium Level 8.0 L Phosphorus Level 4.3 Magnesium Level 1.9 Hepatitis B Surface Antigen NEGATIVE Hepatitis B Surface Antibody POSITIVE H Medications Medications Current Medications IV Flush (NS 10 ml) 10 ml PRN IV ; Start 05/06/18 at 20:30 Ascorbic Acid (Vitamin C) 500 mg DAILY GTB Last administered on 05/15/18at 08:40; Admin Dose 500 MG; Start 05/07/18 at 09:00 Albuterol/ Ipratropium (Duoneb) 3 ml Q2H RESP THERAPY PRN HHN SHORTNESS OF BREATH; Start 05/06/18 at 23:30 Lorazepam (Ativan Intensol) 0.5 mg Q6H PRN PEG ANXIETY; Start 05/06/18 at 23:30 Zinc Sulfate (Zinc Sulfate) 220 mg DAILY GTB Last administered on 05/15/18at 08:40; Admin Dose 220 MG; Start 05/07/18 at 09:00 Ondansetron HCl (Zofran Tab) 4 mg Q6H PRN GTB NAUSEA AND/OR VOMITING; Start 05/07/18 at 00:15 Multivitamins (Multivitamin) 30 ml DAILY GTB Last administered on 05/15/18at 08:40; Admin Dose 30 ML; Start 05/07/18 at 09:00 Epoetin Zen (Epogen (Esrd)) 20,000 units Tu@1700 SC Last administered on 05/12/18 17:36; Admin Dose 20,000 UNITS; Start 05/12/18 at 17:00 Norepinephrine 250 ml @ 1.875 mls/ hr TITRATE IV Last administered on 05/08/18 13:33; Admin Dose 33.75 MLS/HR; Start 05/08/18 at 03:00 Citric Acid/ Sodium Citrate (Bicitra) 30 ml Q8 PO Last administered on 05/15/18 14:35; Admin Dose 30 ML; Start 05/09/18 at 08:00 Phenylephrine HCl 80 mg/Dextrose 250 ml @ 18.75 mls/ hr TITRATE IV Last administered on 05/15/18 01:50; Admin Dose 5.63 MLS/HR; Start 05/09/18 at 12:30 Miscellaneous Information (Pending Santyl Order For Wound Care) This patient goldman... PRN PRN XX WOUND CARE; Start 05/09/18 at 17:00 Vancomycin HCl (Vancomycin Oral Syringe) 250 mg Q6 PO Last administered on 05/15/18 12:58; Admin Dose 250 MG; Start 05/12/18 at 00:00 Metronidazole 100 ml @ 100 mls/hr Q8 IVPB Last administered on 05/15/18 14:35; Admin Dose 100 MLS/HR; Start 05/11/18 at 20:00 Collagenase (Santyl) 1 applic DAILY TOP Last administered on 05/15/18 08:46; Admin Dose 1 APPLIC; Start 05/13/18 at 09:00 Propofol 100 ml @ 2.64 mls/hr Q12H IV Last administered on 05/15/18 11:57; Admin Dose 15.84 MLS/HR; Start 05/12/18 at 18:30 Albuterol (Ventolin Hfa) 4 puff Q6H RESP THERAPY INH Last administered on 05/15/18 07:57; Admin Dose 4 PUFF; Start 05/12/18 at 20:00 Ipratropium [place] (Atrovent Hfa) 4 puff Q6H RESP THERAPY INH Last administered on 05/15/18 07:57; Admin Dose 4 PUFF; Start 05/12/18 at 20:00 Meropenem/Sodium Chloride 50 ml @ 100 mls/hr Q12 IVPB Last administered on 05/15/18 08:37; Admin Dose 100 MLS/HR; Start 05/13/18 at 21:00 Linezolid 300 ml @ 300 mls/hr Q12 IVPB Last administered on 05/15/18 08:52; Admin Dose 300 MLS/HR; Start 05/13/18 at 14:30 Cholestyramine Resin (Questran Light) 4 gm BID PO Last administered on 05/15/18 01:28; Admin Dose 4 GM; Start 05/14/18 at 21:00 Sodium Chloride 1,000 ml @ 50 mls/hr Q20H IV Last administered on 05/15/18 08:36; Admin Dose 50 MLS/HR; Start 05/15/18 at 08:00 Evangelista Scanlon DO May 15, 2018 15:46
--- NOTE | 2018-05-15 16:11 | CONS ---
Assessment/Plan Assessment/Plan Assessment/Plan (Daily) 1. Malfunctioning gastrostomy tube. 2. Renal failure. 3. Sepsis. 4. Hyponatremia. 5. Chronic obstructive pulmonary disease. 6. Bipolar. 7. Paroxysmal atrial fibrillation. 8. Critical care myopathy. 9. Anemia of chronic disease. 10. Diastolic failure. 11. Elevated alk phos with h/o hepatic venous congestion seen on abd CT in 2018 12. C. difficile colitis 13 profuse diarrhea, it is slowing down now. Will continue Questran PLAN: Continue vancomycin Increase feeding There is no evidence of GI bleeding and will start the patient on Pepcid We will stop PPI Question 4 g twice daily Consultation Date/Type/Reason Admit Date/Time May 06, 2018 at 17:38 Initial Consult Date 05/10/18 Requesting Provider: ROLAND GIRON MD Date/Time of Note DATE: 05/15/18 TIME: 16:10 24 HR Interval Summary Free Text/Dictation As per the staff diarrhea reduced. Patient is tolerating feeding at 35 cc/h Exam/Review of Systems Exam Vitals Vital Signs Date Temp Pulse Resp B/P (MAP) Pulse Ox O2 O2 Flow FiO2 Time Delivery Rate 05/15/18 88 20 119/52 98 Mechanical 12:48 (74) Ventilator 05/15/18 97.8 08:00 05/15/18 40 05:50 05/12/18 4.0 17:00 Intake and Output 05/14/18 05/14/18 05/15/18 1515:00 23:00 07:00 IntakeIntake Total 970 ml 985.84 ml 943.06 ml OutputOutput Total 310 ml 420 ml 485 ml BalanceBalance 660 ml 565.84 ml 458.06 ml Constitutional: non-verbal Respiratory: diminished breath sounds Musculoskeletal: nl extremities to inspection, nl gait and stance Results Result Diagram: 05/15/18 0400 05/15/18 0400 Results 24hrs Laboratory Tests Test 05/15/18 04:00 05/15/18 10:32 White Blood Count 11.7 #H Red Blood Count 2.66 L Hemoglobin 8.8 L Hematocrit 27.7 L Mean Corpuscular Volume 104.1 H Mean Corpuscular Hemoglobin 33.1 H Mean Corpuscular Hemoglobin Concent 31.8 L Red Cell Distribution Width 17.7 H Platelet Count 181 Mean Platelet Volume 9.4 Immature Granulocytes % 0.600 H Neutrophils % Segmented Neutrophils % (Manual) 70 Band Neutrophils % (Manual) 16 H Lymphocytes % Lymphocytes % (Manual) 6 L Monocytes % Monocytes % (Manual) 3 Eosinophils % Eosinophils % (Manual) 5 Basophils % Nucleated Red Blood Cells % 0.0 Immature Granulocytes # 0.070 H Neutrophils # Neutrophils # (Manual) 8.4 H Band Neutrophils # 1.8 H Lymphocytes (Manual) 0.7 L Lymphocytes # Monocytes # Monocytes # (Manual) 0.3 Eosinophils # Basophils # Nucleated Red Blood Cells # Platelet Estimate NORMAL Polychromasia 1+ Poikilocytosis 2+ Anisocytosis 1+ Macrocytosis 1+ Target Cells 1+ Sodium Level 139 Potassium Level 3.2 L Chloride Level 98 Carbon Dioxide Level 26 Anion Gap 15 H Blood Urea Nitrogen 113 H Creatinine 2.40 H Est Glomerular Filtrat Rate mL/min Glucose Level 100 Calcium Level 8.0 L Phosphorus Level 4.3 Magnesium Level 1.9 Hepatitis B Surface Antigen NEGATIVE Hepatitis B Surface Antibody POSITIVE H Medications Medication Current Medications IV Flush (NS 10 ml) 10 ml PRN IV ; Start 05/06/18 at 20:30 Ascorbic Acid (Vitamin C) 500 mg DAILY GTB Last administered on 05/15/18 08:40; Admin Dose 500 MG; Start 05/07/18 at 09:00 Albuterol/ Ipratropium (Duoneb) 3 ml Q2H RESP THERAPY PRN HHN SHORTNESS OF BREATH; Start 05/06/18 at 23:30 Lorazepam (Ativan Intensol) 0.5 mg Q6H PRN PEG ANXIETY; Start 05/06/18 at 23:30 Zinc Sulfate (Zinc Sulfate) 220 mg DAILY GTB Last administered on 05/15/18at 08:40; Admin Dose 220 MG; Start 05/07/18 at 09:00 Ondansetron HCl (Zofran Tab) 4 mg Q6H PRN GTB NAUSEA AND/OR VOMITING; Start 05/07/18 at 00:15 Multivitamins (Multivitamin) 30 ml DAILY GTB Last administered on 05/15/18at 08:40; Admin Dose 30 ML; Start 05/07/18 at 09:00 Epoetin Zen (Epogen (Esrd)) 20,000 units Tu@1700 SC Last administered on 05/12/18at 17:36; Admin Dose 20,000 UNITS; Start 05/12/18 at 17:00 Norepinephrine 250 ml @ 1.875 mls/ hr TITRATE IV Last administered on 05/08/18 13:33; Admin Dose 33.75 MLS/HR; Start 05/08/18 at 03:00 Citric Acid/ Sodium Citrate (Bicitra) 30 ml Q8 PO Last administered on 05/15/18 14:35; Admin Dose 30 ML; Start 05/09/18 at 08:00 Phenylephrine HCl 80 mg/Dextrose 250 ml @ 18.75 mls/ hr TITRATE IV Last administered on 05/15/18 01:50; Admin Dose 5.63 MLS/HR; Start 05/09/18 at 12:30 Miscellaneous Information (Pending Santyl Order For Wound Care) This patient goldman... PRN PRN XX WOUND CARE; Start 05/09/18 at 17:00 Vancomycin HCl (Vancomycin Oral Syringe) 250 mg Q6 PO Last administered on 05/15/18 12:58; Admin Dose 250 MG; Start 05/12/18 at 00:00 Metronidazole 100 ml @ 100 mls/hr Q8 IVPB Last administered on 05/15/18 14:35; Admin Dose 100 MLS/HR; Start 05/11/18 at 20:00 Collagenase (Santyl) 1 applic DAILY TOP Last administered on 05/15/18 08:46; Admin Dose 1 APPLIC; Start 05/13/18 at 09:00 Propofol 100 ml @ 2.64 mls/hr Q12H IV Last administered on 05/15/18 11:57; Admin Dose 15.84 MLS/HR; Start 05/12/18 at 18:30 Albuterol (Ventolin Hfa) 4 puff Q6H RESP THERAPY INH Last administered on 05/15/18 07:57; Admin Dose 4 PUFF; Start 05/12/18 at 20:00 Ipratropium [place] (Atrovent Hfa) 4 puff Q6H RESP THERAPY INH Last administered on 05/15/18 07:57; Admin Dose 4 PUFF; Start 05/12/18 at 20:00 Meropenem/Sodium Chloride 50 ml @ 100 mls/hr Q12 IVPB Last administered on 05/15/18 08:37; Admin Dose 100 MLS/HR; Start 05/13/18 at 21:00 Linezolid 300 ml @ 300 mls/hr Q12 IVPB Last administered on 05/15/18at 08:52; Admin Dose 300 MLS/HR; Start 05/13/18 at 14:30 Cholestyramine Resin (Questran Light) 4 gm BID PO Last administered on at 01:28; Admin Dose 4 GM; Start 05/14/18 at 21:00 Sodium Chloride 1,000 ml @ 50 mls/hr Q20H IV Last administered on 05/15/18at 08:36; Admin Dose 50 MLS/HR; Start 05/15/18 at 08:00 QUINTEN UMAÑA MD May 15, 2018 16:11
[2018-05-16] VITALS (44 sets, daily range): BP systolic 92–134; BP diastolic 44–76; PULSE 92–108; RESP 15–26
[2018-05-16] MEDS: IPRATROPIUM (HFA) 12.9 GM INHALER INH SCH ×4 (01:48→20:31)
[2018-05-16] MEDS: PROPOFOL 100 ML IV SCH ×4 (05:25→22:38)
[2018-05-16] MEDS: CITRIC ACID/NA CITRATE 30 ML CUP PO SCH ×3 (05:25→21:51)
[2018-05-16] MEDS: metroNIDAZOLE 500 MG/NS (PMX) 100 ML IVPB SCH ×3 (05:25→21:51)
[2018-05-16] MEDS: SOD CHLORIDE 0.9% 1,000 ML IV SCH ×2 (05:26→12:18)
[2018-05-16] MEDS: VANCOMYCIN HCL 250 MG/5ML POSYG PO SCH ×3 (05:28→18:31)
--- NOTE | 2018-05-16 07:01 | PN ---
Date/Time of Note Date/Time of Note DATE: 05/16/18 TIME: 07:00 Assessment/Plan VTE Prophylaxis Risk score (from Ns)>0 risk: 11 SCD applied (from [facility] [place]): No SCD contraindicated: other Pharmacological prophylaxis: other Lines/Catheters IV Catheter Type (from [facility]): KASANDRA CATH Urinary Cath still in place: Yes Reason Cath still needed: urinary retention Assessment/Plan Hospital Course renal follow up SUBJECTIVE: The patient remains critically ill on pressor support, on full ventilatory support. The patient had a Kasandra catheter placed and was dialyzed yesterday for volume removal and solute clearance. No other events noted. No hemoptysis, hematemesis, hematochezia. vent settings were reviewed d/w Dr Mckeon OBJECTIVE: HEENT: Head is normocephalic. NECK: Supple. HEART: Regular rate. LUNGS: Show diminished breath sounds at the base. ABDOMEN: Soft, nontender to palpation without rebound or guarding. EXTREMITIES: Negative for clubbing, cyanosis. Positive edema, diffuse anasarca. DERMATOLOGIC: No rashes. MUSCULOSKELETAL: No joint effusions. NEUROLOGIC: No change in exam. MEDICATIONS: Reviewed. IMAGING: The patient's chest x-ray from 05/15/2018 was reviewed, shows alveolar infiltrates concerning for edema, increasing. ASSESSMENT AND PLAN: 1. Nonoliguric acute kidney injury on top of chronic kidney disease with previous baseline creatinine of 2.5 mg/dL. Etiology of acute kidney injury is secondary to shock, sepsis, hemodynamics. The patient's renal function has been fluctuating. The patient continues to have significant acidemia and is diffusely volume overloaded. The patient was started on dialysis for volume removal and solute clearance. will continue with hd today. Continue to renally dose all meds, avoid nephrotoxins, continue pressor support and keep MAP above 65. Continue antibiotic therapy. 2. Metabolic acidosis. The patient's ABG was reviewed. Anticipate dialysis on a 40 bicarbonate bath. The patient currently on bicarbonate drip. Will discontinue. 3. Anemia. Monitor hemoglobin and hematocrit levels. 4. Mineral bone disorder. Monitor calcium and phosphorus levels. 5. Volume overload. The patient has diffuse anasarca, pulmonary congestion. Anticipate ultrafiltration with dialysis if remains hemodynamically stable. 6. Septic shock secondary to urinary tract infection, pneumonia. Continue current antibiotic regimen. Continue pressor support. 7. Tachyarrhythmia. Continue to monitor. 8. Ventilator-dependent respiratory failure. Vent settings and ABG was reviewed. Continue to monitor. 8. Dysphagia status post PEG. Continue tube feeding. 9. Acute encephalopathy, etiology is toxic metabolic. 10. Decompensated heart failure. Continue medical management. Result Diagram: 05/16/18 0500 05/15/18 0400 Results 24hrs Laboratory Tests Test 05/15/18 10:32 05/16/18 05:00 Hepatitis B Surface Antigen NEGATIVE Hepatitis B Surface Antibody POSITIVE H White Blood Count 8.5 # Red Blood Count 2.57 L Hemoglobin 8.6 L Hematocrit 27.2 L Mean Corpuscular Volume 105.8 H Mean Corpuscular Hemoglobin 33.5 H Mean Corpuscular Hemoglobin Concent 31.6 L Red Cell Distribution Width 17.4 H Platelet Count 157 Mean Platelet Volume 9.6 Immature Granulocytes % 0.700 H Neutrophils % 85.6 H Lymphocytes % 7.2 L Monocytes % 2.7 Eosinophils % 3.7 Basophils % 0.1 Nucleated Red Blood Cells % 0.0 Immature Granulocytes # 0.060 H Neutrophils # 7.2 Lymphocytes # 0.6 L Monocytes # 0.2 L Eosinophils # 0.3 Basophils # 0.0 Nucleated Red Blood Cells # 0.0 Exam/Review of Systems Exam Vitals Vital Signs Date Temp Pulse Resp B/P (MAP) Pulse Ox O2 O2 Flow FiO2 Time Delivery Rate 05/16/18 95 18 105/55 97 Mechanical 06:00 (72) Ventilator 05/16/18 40 05:16 05/16/18 98.6 04:00 05/12/18 4.0 17:00 Intake and Output 05/15/18 05/15/18 05/16/18 1515:00 23:00 07:00 IntakeIntake Total 1389.04 ml 927.22 ml 955.88 ml OutputOutput Total 1975 ml 420 ml 360 ml BalanceBalance -585.96 ml 507.22 ml 595.88 ml Results Results 24hrs Laboratory Tests Test 05/15/18 10:32 05/16/18 05:00 Hepatitis B Surface Antigen NEGATIVE Hepatitis B Surface Antibody POSITIVE H White Blood Count 8.5 # Red Blood Count 2.57 L Hemoglobin 8.6 L Hematocrit 27.2 L Mean Corpuscular Volume 105.8 H Mean Corpuscular Hemoglobin 33.5 H Mean Corpuscular Hemoglobin Concent 31.6 L Red Cell Distribution Width 17.4 H Platelet Count 157 Mean Platelet Volume 9.6 Immature Granulocytes % 0.700 H Neutrophils % 85.6 H Lymphocytes % 7.2 L Monocytes % 2.7 Eosinophils % 3.7 Basophils % 0.1 Nucleated Red Blood Cells % 0.0 Immature Granulocytes # 0.060 H Neutrophils # 7.2 Lymphocytes # 0.6 L Monocytes # 0.2 L Eosinophils # 0.3 Basophils # 0.0 Nucleated Red Blood Cells # 0.0 Medications Medication Current Medications IV Flush (NS 10 ml) 10 ml PRN IV ; Start 05/06/18 at 20:30 Ascorbic Acid (Vitamin C) 500 mg DAILY GTB Last administered on 05/15/18at 08:40; Admin Dose 500 MG; Start 05/07/18 at 09:00 Albuterol/ Ipratropium (Duoneb) 3 ml Q2H RESP THERAPY PRN HHN SHORTNESS OF BREATH; Start 05/06/18 at 23:30 Lorazepam (Ativan Intensol) 0.5 mg Q6H PRN PEG ANXIETY; Start 05/06/18 at 23:30 Zinc Sulfate (Zinc Sulfate) 220 mg DAILY GTB Last administered on 05/15/18 08:40; Admin Dose 220 MG; Start 05/07/18 at 09:00 Ondansetron HCl (Zofran Tab) 4 mg Q6H PRN GTB NAUSEA AND/OR VOMITING; Start 05/07/18 at 00:15 Multivitamins (Multivitamin) 30 ml DAILY GTB Last administered on 05/15/18 08:40; Admin Dose 30 ML; Start 05/07/18 at 09:00 Epoetin Zen (Epogen (Esrd)) 20,000 units Tu@1700 SC Last administered on 05/12/18at 17:36; Admin Dose 20,000 UNITS; Start 05/12/18 at 17:00 Norepinephrine 250 ml @ 1.875 mls/ hr TITRATE IV Last administered on 05/08/18 13:33; Admin Dose 33.75 MLS/HR; Start 05/08/18 at 03:00 Citric Acid/ Sodium Citrate (Bicitra) 30 ml Q8 PO Last administered on 05/16/18 05:25; Admin Dose 30 ML; Start 05/09/18 at 08:00 Phenylephrine HCl 80 mg/Dextrose 250 ml @ 18.75 mls/ hr TITRATE IV Last administered on 05/15/18 01:50; Admin Dose 5.63 MLS/HR; Start 05/09/18 at 12:30 Miscellaneous Information (Pending Santyl Order For Wound Care) This patient goldman... PRN PRN XX WOUND CARE; Start 05/09/18 at 17:00 Vancomycin HCl (Vancomycin Oral Syringe) 250 mg Q6 PO Last administered on 05/16/18 05:28; Admin Dose 250 MG; Start 05/12/18 at 00:00 Metronidazole 100 ml @ 100 mls/hr Q8 IVPB Last administered on 05/16/18 05:25; Admin Dose 100 MLS/HR; Start 05/11/18 at 20:00 Collagenase (Santyl) 1 applic DAILY TOP Last administered on 05/15/18 08:46; Admin Dose 1 APPLIC; Start 05/13/18 at 09:00 Propofol 100 ml @ 2.64 mls/hr Q12H IV Last administered on 05/16/18 05:25; Ad min Dose 15.84 MLS/HR; Start 05/12/18 at 18:30 Albuterol (Ventolin Hfa) 4 puff Q6H RESP THERAPY INH Last administered on 05/15/18 22:15; Admin Dose 4 PUFF; Start 05/12/18 at 20:00 Ipratropium [place] (Atrovent Hfa) 4 puff Q6H RESP THERAPY INH Last administered on 05/16/18 01:48; Admin Dose 4 PUFF; Start 05/12/18 at 20:00 Meropenem/Sodium Chloride 50 ml @ 100 mls/hr Q12 IVPB Last administered on 05/15/18 21:28; Admin Dose 100 MLS/HR; Start 05/13/18 at 21:00 Linezolid 300 ml @ 300 mls/hr Q12 IVPB Last administered on 05/15/18 21:28; Admin Dose 300 MLS/HR; Start 05/13/18 at 14:30 Cholestyramine Resin (Questran Light) 4 gm BID PO Last administered on 05/15/18 21:28; Admin Dose 4 GM; Start 05/14/18 at 21:00 Sodium Chloride 1,000 ml @ 50 mls/hr Q20H IV Last administered on 05/16/18at 05:26; Admin Dose 50 MLS/HR; Start 05/15/18 at 08:00 FELICIANO ROSAS DO May 16, 2018 07:01
[2018-05-16] MEDS: ALBUTEROL HFA 8 GM INHALER INH SCH ×3 (08:30→20:30)
--- NOTE | 2018-05-16 08:46 | CONS ---
Assessment/Plan Assessment/Plan Assessment/Plan (Daily) Ventilator setting; AC of 20, tidal volume 500, PEEP of 5, 40% FiO2. Patient is currently on propofol at 30 mics per kilogram per minute. Assessment recommendations; 1. Patient with history of prior respiratory failure status post decannulation of tracheostomy about a month ago admitted to the hospital for severe sepsis from bilateral pneumonia as well as UTI and decubitus ulcers, currently on appropriate broad-spectrum antimicrobial coverage. 2. Acute encephalopathy. 3. Renal failure, now on hemodialysis. 4. C. difficile colitis. 5. Anemia and thrombocytopenia. Continue current supportive care. Patient possibly may require to have redo tracheostomy. Prognosis remains poor. Hemodialysis per window and door installer. Consultation Date/Type/Reason Admit Date/Time May 06, 2018 at 17:38 Initial Consult Date 05/10/18 Type of Consult Pulmonary/critical care Reason for Consultation Patient's condition remains critical. Remains awake but but sedated. Has remained hemodynamically stable. General exam; elderly female, orally intubated, awake but mildly sedated. Currently no distress. H EENT exam; supple neck, positive JVD. No lymphadenopathy. Midline trachea. No thyromegaly. Dressing applied over prior tracheostomy site. Patient has multiple carious teeth. Pupils are small bilaterally. No neck masses. Chest exam; diminished breath sounds bilaterally. S1-S2 audible, no murmurs. Regular rhythm. Abdomen exam; soft, no organomegaly. G-tube in place. Bowel sounds audible. Extremity exam; trace edema. LINING LAYER exam; patient awake but sedated. Requesting Provider: ROLAND GIRON MD Date/Time of Note DATE: 05/16/18 TIME: 08:43 Exam/Review of Systems Exam Vitals Vital Signs Date Temp Pulse Resp B/P (MAP) Pulse Ox O2 O2 Flow FiO2 Time Delivery Rate 05/16/18 95 18 105/55 97 Mechanical 06:00 (72) Ventilator 05/16/18 40 05:16 05/16/18 98.6 04:00 05/12/18 4.0 17:00 Intake and Output 05/15/18 05/15/18 05/16/18 1515:00 23:00 07:00 IntakeIntake Total 1389.04 ml 927.22 ml 955.88 ml OutputOutput Total 1975 ml 420 ml 360 ml BalanceBalance -585.96 ml 507.22 ml 595.88 ml Results Result Diagram: 05/16/18 0500 05/16/18 0500 Results 24hrs Laboratory Tests Test 05/15/18 10:32 05/16/18 05:00 Hepatitis B Surface Antigen NEGATIVE Hepatitis B Surface Antibody POSITIVE H White Blood Count 8.5 # Red Blood Count 2.57 L Hemoglobin 8.6 L Hematocrit 27.2 L Mean Corpuscular Volume 105.8 H Mean Corpuscular Hemoglobin 33.5 H Mean Corpuscular Hemoglobin Concent 31.6 L Red Cell Distribution Width 17.4 H Platelet Count 157 Mean Platelet Volume 9.6 Immature Granulocytes % 0.700 H Neutrophils % 85.6 H Lymphocytes % 7.2 L Monocytes % 2.7 Eosinophils % 3.7 Basophils % 0.1 Nucleated Red Blood Cells % 0.0 Immature Granulocytes # 0.060 H Neutrophils # 7.2 Lymphocytes # 0.6 L Monocytes # 0.2 L Eosinophils # 0.3 Basophils # 0.0 Nucleated Red Blood Cells # 0.0 Sodium Level 139 Potassium Level 3.2 L Chloride Level 101 Carbon Dioxide Level 28 Anion Gap 10 # Blood Urea Nitrogen 90 H Creatinine 1.94 H Est Glomerular Filtrat Rate mL/min Glucose Level 80 Calcium Level 8.1 L Phosphorus Level 3.5 Magnesium Level 1.7 Medications Medication Current Medications IV Flush (NS 10 ml) 10 ml PRN IV ; Start 05/06/18 at 20:30 Ascorbic Acid (Vitamin C) 500 mg DAILY GTB Last administered on 05/15/18at 08:40; Admin Dose 500 MG; Start 05/07/18 at 09:00 Albuterol/ Ipratropium (Duoneb) 3 ml Q2H RESP THERAPY PRN HHN SHORTNESS OF BREATH; Start 05/06/18 at 23:30 Lorazepam (Ativan Intensol) 0.5 mg Q6H PRN PEG ANXIETY; Start 05/06/18 at 23:30 Zinc Sulfate (Zinc Sulfate) 220 mg DAILY GTB Last administered on 05/15/18at 08:40; Admin Dose 220 MG; Start 05/07/18 at 09:00 Ondansetron HCl (Zofran Tab) 4 mg Q6H PRN GTB NAUSEA AND/OR VOMITING; Start 05/07/18 at 00:15 Multivitamins (Multivitamin) 30 ml DAILY GTB Last administered on 05/15/18 08:40; Admin Dose 30 ML; Start 05/07/18 at 09:00 Epoetin Zen (Epogen (Esrd)) 20,000 units Tu@1700 SC Last administered on 05/12/18 17:36; Admin Dose 20,000 UNITS; Start 05/12/18 at 17:00 Norepinephrine 250 ml @ 1.875 mls/ hr TITRATE IV Last administered on 05/08/18 13:33; Admin Dose 33.75 MLS/HR; Start 05/08/18 at 03:00 Citric Acid/ Sodium Citrate (Bicitra) 30 ml Q8 PO Last administered on 05/16/18 05:25; Admin Dose 30 ML; Start 05/09/18 at 08:00 Phenylephrine HCl 80 mg/Dextrose 250 ml @ 18.75 mls/ hr TITRATE IV Last administered on 05/15/18 01:50; Admin Dose 5.63 MLS/HR; Start 05/09/18 at 12:30 Miscellaneous Information (Pending Santyl Order For Wound Care) This patient goldman... PRN PRN XX WOUND CARE; Start 05/09/18 at 17:00 Vancomycin HCl (Vancomycin Oral Syringe) 250 mg Q6 PO Last administered on 05/16/18 05:28; Admin Dose 250 MG; Start 05/12/18 at 00:00 Metronidazole 100 ml @ 100 mls/hr Q8 IVPB Last administered on 05/16/18 05:25; Admin Dose 100 MLS/HR; Start 05/11/18 at 20:00 Collagenase (Santyl) 1 applic DAILY TOP Last administered on 05/15/18 08:46; Admin Dose 1 APPLIC; Start 05/13/18 at 09:00 Propofol 100 ml @ 2.64 mls/hr Q12H IV Last administered on 05/16/18 05:25; Admin Dose 15.84 MLS/HR; Start 05/12/18 at 18:30 Albuterol (Ventolin Hfa) 4 puff Q6H RESP THERAPY INH Last administered on 05/15/18 22:15; Admin Dose 4 PUFF; Start 05/12/18 at 20:00 Ipratropium [place] (Atrovent Hfa) 4 puff Q6H RESP THERAPY INH Last administered on 05/16/18 01:48; Admin Dose 4 PUFF; Start 05/12/18 at 20:00 Meropenem/Sodium Chloride 50 ml @ 100 mls/hr Q12 IVPB Last administered on 05/15/18 21:28; Admin Dose 100 MLS/HR; Start 05/13/18 at 21:00 Linezolid 300 ml @ 300 mls/hr Q12 IVPB Last administered on 05/15/18 21:28; Admin Dose 300 MLS/HR; Start 05/13/18 at 14:30 Cholestyramine Resin (Questran Light) 4 gm BID PO Last administered on 05/15/18 21:28; Admin Dose 4 GM; Start 05/14/18 at 21:00 Sodium Chloride 1,000 ml @ 50 mls/hr Q20H IV Last administered on 05/16/18 05:26; Admin Dose 50 MLS/HR; Start 05/15/18 at 08:00 ELOISA LAURA May 16, 2018 08:46
[2018-05-16] MEDS: MEROPENEM 500MG/50 ML (PMX) 50 ML IVPB SCH ×2 (08:50→21:02)
[2018-05-16] MEDS: COLLAGENASE 5 GM (UD JAR) TOP SCH (08:52)
[2018-05-16] MEDS: MULTIVITAMINS 30 ML CUP GTB SCH (08:52)
[2018-05-16] MEDS: ASCORBIC ACID 500 MG TAB GTB SCH (08:52)
[2018-05-16] MEDS: ZINC SULFATE 220 MG CAP GTB SCH (08:52)
[2018-05-16] MEDS: LINEZOLID 600 MG/300 ML (PMX) 300 ML IVPB SCH ×2 (08:54→21:01)
[2018-05-16] MEDS: BALSAM PERU/CASTOR OIL 60 GM TUBE TOP SCH ×2 (08:54→21:02)
[2018-05-16] MEDS: CHOLESTYRAMINE (LIGHT) 4 GM PACKET PO SCH ×2 (08:54→21:02)
--- NOTE | 2018-05-16 13:34 | CONS ---
Consult Date/Type/Reason Admit Date/Time May 06, 2018 at 17:38 Initial Consult Date 05/10/18 Requesting Provider: ROLAND GIRON MD Date/Time of Note DATE: 05/16/18 TIME: 13:29 Subjective Interventional cardiology follow-up progress Subjective: Discussed with the staff and telemetry was reviewed. Patient has remained sinus rhythm. Has had frequent PACs but no A. fib or SVT noted overnight. Patient remained intubated on the vent nonverbal Off of pressors but is still in ICU on the ventilator Objective: General: Status post intubation on the vent HEENT: NC/AT. pupils are equal. round. NECK: no stridor. CV: RRR. systolic murmur; no gallop or rubs. PULM: no wheezing + rhonchi. GI: SOFT, NT, ND, no rebound or guarding Extremity: +B/L LE edema. no clubbing. neuro: Opens her eyes to verbal stimuli does not follow command Psych: calm and pleasant rectal: deferred This extreme ice 2018 showed Mixed interstitial and alveolar infiltrates possibly representing edema, atypical pneumonia, or pneumonitis are mildly improved. Objective Vitals Vital Signs Date Temp Pulse Resp B/P (MAP) Pulse Ox O2 O2 Flow FiO2 Time Delivery Rate 05/16/18 92 20 92/44 (60) 99 Mechanical 13:00 Ventilator 05/16/18 98.5 12:00 05/16/18 40 05:16 05/12/18 4.0 17:00 Intake and Output 05/15/18 05/15/18 05/16/18 1414:59 22:59 06:59 IntakeIntake Total 1367.57 ml 892.85 ml 1046.72 ml OutputOutput Total 2005 ml 430 ml 400 ml BalanceBalance -637.43 ml 462.85 ml 646.72 ml Results/Medications Result Diagram: 05/16/18 0500 05/16/18 0500 Results 24 hrs Laboratory Tests Test 05/16/18 05:00 White Blood Count 8.5 # Red Blood Count 2.57 L Hemoglobin 8.6 L Hematocrit 27.2 L Mean Corpuscular Volume 105.8 H Mean Corpuscular Hemoglobin 33.5 H Mean Corpuscular Hemoglobin Concent 31.6 L Red Cell Distribution Width 17.4 H Platelet Count 157 Mean Platelet Volume 9.6 Immature Granulocytes % 0.700 H Neutrophils % 85.6 H Lymphocytes % 7.2 L Monocytes % 2.7 Eosinophils % 3.7 Basophils % 0.1 Nucleated Red Blood Cells % 0.0 Immature Granulocytes # 0.060 H Neutrophils # 7.2 Lymphocytes # 0.6 L Monocytes # 0.2 L Eosinophils # 0.3 Basophils # 0.0 Nucleated Red Blood Cells # 0.0 Sodium Level 139 Potassium Level 3.2 L Chloride Level 101 Carbon Dioxide Level 28 Anion Gap 10 # Blood Urea Nitrogen 90 H Creatinine 1.94 H Est Glomerular Filtrat Rate mL/min Glucose Level 80 Calcium Level 8.1 L Phosphorus Level 3.5 Magnesium Level 1.7 Home Meds Reported Medications Zinc Sulfate* (Zinc Sulfate*) 220 Mg Tablet, 220 MG GTB DAILY, TAB START DATE 05/04/18, END DATE 06/03/18 05/06/18 Diclofenac Sodium* (Voltaren* Gel) 1% -100 Gm Gel, 2 GM TOP TID, #1 TUB 05/06/18 Ascorbic Acid (Vitamin C) 500 Mg Tab, 500 MG GTB DAILY, TAB 05/06/18 Quetiapine Fumarate* (Seroquel*) 100 Mg Tablet, 600 MG GTB HS, #30 TAB 05/06/18 Protein Supplement (Promod) 946 Ml Liquid, 30 ML GTB BID 05/06/18 Epoetin Zen (Procrit) 20,000 Unit/1 Ml Vial, 65733 UNIT IJ Q TUE for FOR ANEMIA OF CKD, VIAL HOLD IFHGB IS EQUAL OR GREATER THAN 11 05/06/18 Ondansetron Hcl* (Ondansetron Hcl* Liq) 4 Mg/5 Ml Solution, 4 MG GTB Q6H PRN for NAUSEA AND/OR VOMITING, ML 05/06/18 Multivitamin with Minerals (Multivitamins with Minerals) 1 Each Tablet, 1 EACH GTB QAM, TAB 05/06/18 Metoprolol Tartrate* (Lopressor*) 25 Mg Tab, 25 MG GTB BID, #60 TAB HOLD FOR SBP<110 OR HR<60 05/06/18 Lorazepam* (Ativan* Intensol) 2 Mg/Ml Soln, 0.5 MG IV* Q6H PRN for ANXIETY, #1 BOTTLE START DATE 04/02/18, END DATE 06/01/18 05/06/18 Lidocaine (Lidocaine) 1 Each Adh..patch, 1 EACH TP Q12H 5% 05/06/18 Ipratropium-Albuterol (Ipratropium-Albuterol) 0.5-3 Mg/3 Ml Ampul.neb, 3 ML INHALATION Q6 PRN for BRONCHOSPASM, #30 VIAL 05/06/18 Ipratropium-Albuterol (Ipratropium-Albuterol) 0.5-3 Mg/3 Ml Ampul.neb, 3 ML INHALATION Q2H PRN for BRONCHOSPASM, #30 VIAL 05/06/18 Famotidine* (Famotidine*) 20 Mg Tablet, 20 MG GTB BID, #60 TAB 05/06/18 Valproic Acid* (Depakene*) 250 Mg/5 Ml Udc Syrup, 100 MG GTB QHS, ML 05/06/18 Clonidine Hcl* (Clonidine Hcl*) 0.1 Mg Tab, 0.1 MG GTB Q6 PRN for NEEDED, TAB FOR SBP>160 OR DBP>90 05/06/18 Aspirin* (Aspirin* Chew) 81 Mg Tab.chew, 81 MG GTB DAILY, TAB.CHEW 05/06/18 Medications Current Medications IV Flush (NS 10 ml) 10 ml PRN IV ; Start 05/06/18 at 20:30 Ascorbic Acid (Vitamin C) 500 mg DAILY GTB Last administered on 05/16/18at 08:52; Admin Dose 500 MG; Start 05/07/18 at 09:00 Albuterol/ Ipratropium (Duoneb) 3 ml Q2H RESP THERAPY PRN HHN SHORTNESS OF BREATH; Start 05/06/18 at 23:30 Lorazepam (Ativan Intensol) 0.5 mg Q6H PRN PEG ANXIETY; Start 05/06/18 at 23:30 Zinc Sulfate (Zinc Sulfate) 220 mg DAILY GTB Last administered on 05/16/18at 08:52; Admin Dose 220 MG; Start 05/07/18 at 09:00 Ondansetron HCl (Zofran Tab) 4 mg Q6H PRN GTB NAUSEA AND/OR VOMITING; Start 05/07/18 at 00:15 Multivitamins (Multivitamin) 30 ml DAILY GTB Last administered on 05/16/18at 08:52; Admin Dose 30 ML; Start 05/07/18 at 09:00 Epoetin Zen (Epogen (Esrd)) 20,000 units Tu@1700 SC Last administered on 05/12/18 17:36; Admin Dose 20,000 UNITS; Start 05/12/18 at 17:00 Norepinephrine 250 ml @ 1.875 mls/ hr TITRATE IV Last administered on 05/08/18 13:33; Admin Dose 33.75 MLS/HR; Start 05/08/18 at 03:00 Citric Acid/ Sodium Citrate (Bicitra) 30 ml Q8 PO Last administered on 05/16/18 05:25; Admin Dose 30 ML; Start 05/09/18 at 08:00 Phenylephrine HCl 80 mg/Dextrose 250 ml @ 18.75 mls/ hr TITRATE IV Last administered on 05/15/18 01:50; Admin Dose 5.63 MLS/HR; Start 05/09/18 at 12:30 Miscellaneous Information (Pending Santyl Order For Wound Care) This patient goldman... PRN PRN XX WOUND CARE; Start 05/09/18 at 17:00 Vancomycin HCl (Vancomycin Oral Syringe) 250 mg Q6 PO Last administered on 05/16/18 12:17; Admin Dose 250 MG; Start 05/12/18 at 00:00 Metronidazole 100 ml @ 100 mls/hr Q8 IVPB Last administered on 05/16/18 05:25; Admin Dose 100 MLS/HR; Start 05/11/18 at 20:00 Collagenase (Santyl) 1 applic DAILY TOP Last administered on 05/16/18 08:52; Admin Dose 1 APPLIC; Start 05/13/18 at 09:00 Propofol 100 ml @ 2.64 mls/hr Q12H IV Last administered on 05/16/18 11:05; Admin Dose 15.84 MLS/HR; Start 05/12/18 at 18:30 Albuterol (Ventolin Hfa) 4 puff Q6H RESP THERAPY INH Last administered on 05/16/18 08:30; Admin Dose 4 PUFF; Start 05/12/18 at 20:00 Ipratropium [place] (Atrovent Hfa) 4 puff Q6H RESP THERAPY INH Last administered on 05/16/18 08:30; Admin Dose 4 PUFF; Start 05/12/18 at 20:00 Meropenem/Sodium Chloride 50 ml @ 100 mls/hr Q12 IVPB Last administered on 05/16/18 08:50; Admin Dose 100 MLS/HR; Start 05/13/18 at 21:00 Linezolid 300 ml @ 300 mls/hr Q12 IVPB Last administered on 05/16/18 08:54; Admin Dose 300 MLS/HR; Start 05/13/18 at 14:30 Cholestyramine Resin (Questran Light) 4 gm BID PO Last administered on 05/16/18 08:54; Admin Dose 4 GM; Start 05/14/18 at 21:00 Sodium Chloride 1,000 ml @ 50 mls/hr Q20H IV Last administered on 05/16/18 12:18; Admin Dose 50 MLS/HR; Start 05/15/18 at 08:00 Assessment/Plan Hospital Course (Demo Recall) Septic as well as hemorrhagic shock Hypotension : Currently off of IV pressor Acute respiratory failure status post intubation: Currently ventilator dependent Acute blood loss anemia History of chronic respiratory failure status post decannulation with preserved ejection fraction echocardiogram 05/10/2018 Paroxysmal atrial fibrillation, currently sinus rhythm Acute kidney injury Recommendation: -Vent management as per pulmonary -Fluid management as per renal, -Hold all antihypertensives and nephrotoxic medications -Antibiotics as per infectious disease Correct electrolyte as needed including potassium magnesium Continue with ICU care Thank you for his referral. We will continue to follow along with you DAVID LOPES MD [facility] DAVID LOPES MD May 16, 2018 13:34
--- NOTE | 2018-05-16 14:19 | CONS ---
Assessment/Plan Assessment/Plan Hospital Course (Demo Recall) # sepsis, SIRS, pulmonary - septic shock due to pneumonia and C diff colitis. 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 colonization of the airway by pseudomonas and ESBL+kleb siella - h/o possible, recurrent HCAP due to pseudomonas and ESBL+klebsiella - h/o recurrent HCAP due to MRSA and Enterobacter (culture of tracheal aspirate on 07/16/2017 that was collected at [facility]) . Pt took vancomycin and ceftazidime - h/o acute respiratory distress post-thoracentesis, resolved - h/o thoracentesis on 07/18/2017, transudative (protein <2, LDH 279) - h/o bleeding from the trach site - h/o septic shock due to pneumonia, ARDS, bacteremia, fungemia - h/o ARDS - h/o smoking - COPD - ILD # Cardiac - PAF, currently sinus tachycardia # GI - C diff colitis, diagnosed on 05/11/2018 - h/o intermittent diarrhea, Pt had multiple negative C. diff tests at [facility] at [facility] in the past - dysphagia - h/o PEG placement 06/13/2018 - protein calorie malnutrition - h/o coffee ground emesis/UGIB 12/23/2017 due to deep ulceration of distal esophagus and gastritis on EGD 12/26/2017. No e/o H. pylori - h/o possible appendicitis on CT on 11/22/2017, Pt took ertapenem (11/24/2017-) - h/o extensive adhesions lower abdominal and pelvis between small bowel to each other and to colon and to abdominal wall, anterior pelvic wall chronic abscess secondary to probably an old perforated diverticulitis, torsion of small bowel around these dense adhesion causing multiple obstructive points - h/o laparoscopic exploration and extensive lysis of adhesions and drainage of anterior pelvic wall abscess 09/16/2017. Cultures were negative, no e/o malignancy. Pt took pip/tazo (09/16/2017-09/26/2017) - h/o partial obstruction mid jejunum in L anterior central pelvis with suggestion of a 3 cm soft tissue mass on CT 08/28/2017 - h/o internal stomal deep ulcer behind the internal bumper, gastritis and esophagitis, Rodriguez's cannot be ruled out, per EGD with biopsy 07/23/2017 - h/o GIB s/p flex sig showed polyp; stool OB negative on 06/29/17 - h/o stool OB positive status - h/o SBO and ileus due to pain meds - h/o EGD and exchange of PEG on 09/01/2017 - h/o mildly elevated CEA # renal/ - recurrent NATHAN on CKD - started on HD on 05/15/2018, via Kem in R groin - 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 JADE Joshi requested that Claudia at [facility] test his strain of CRE against colistin, Avycaz, Zerbaxa, and Vabomere on 05/07/2018 - Hyponatremia - Hyperkalemia, now hypokalemia - Metabolic acidosis - adrenal insufficiency - h/o vaginal bleed - h/o colonization of urinary tract by ESBL+klebsiella, VRE - h/o recurrent, symptomatic UTI due to carbapenem-resistant kleb (MDR strain) per urine culture 10/04/17, 10/09/17, 10/21/2017, P took colistin (10/09/2017- 10/15/2017), fosfomycin for carbapenemase-producing klebsiella and VRE on 10/25/2017 and 10/28/2017 - h/o funguria - h/o urinary retention # fungemia, bacteremia - h/o bacteremia due to coag negative Staph, probable contaminant as her WBC level improved initially without antibiotic - 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 improved. Probable manifestation of endocarditis. Pt declined MRI on 08/06/2017 - h/o infection of R toes due to pseudomonas. coagulase negative Staph likely a colonizer. resolved - h/o intertrigo of the groin, resolved with nystatin powder - h/o scabies, locally crusted lesion over L scapula, s/p permethrin cream and pGT ivermectin on 08/11/2017, 08/12/2017, 08/19/2017. Repeat skin scraping on 08/21/2017 was negative for scabies # psych, neuro - acute toxic metabolic encephalopathy - decreased hearing b/l - h/o critical illness polyneuropathy - anxiety/depression, bipolar d/o, seen by Psychiatry in the past - chronic pain syndrome - medical non-compliance: she would refuse her medications, treatment and straight catheterization at times # hematological, vascular - chronic anemia requiring blood transfusion intermittently - Macrocytic anemia - 3.1 cm AAA on imaging - PVD Recommendations: - pending: Blood culture x2 (05/13/2018 - NGTD), tracheal aspirate culture (05/14/2018 - NGTD) - continue renally dosed meropenem and linezolid for HCAP (05/13/2018-); no IV vancomycin due to acute on chronic renal disease. Will monitor CBC - continue pGT vancomycin (05/11/2018-) and IV metronidazole (05/11/2018) for C diff colitis Management d/w SUCCESS COACHJAYANT Nelson and with Dr. Doyle Critical care time spent: 30 min Consultation Date/Type/Reason Admit Date/Time May 06, 2018 at 17:38 Initial Consult Date 05/07/18 Type of Consult Infectious Disease Requesting Provider: ROLAND GIRON MD Date/Time of Note DATE: 05/16/18 TIME: 14:15 24 HR Interval Summary Free Text/Dictation Afebrile, leukocytosis has normalized, diarrhea has improved; had one episode of loose stool today; HD done yesterday and repeat HD to be done today per d/w SUCCESS COACH. Pulmonary considering re-do trach. Subjective hx not possible: pt non-verbal, pt critical status Exam/Review of Systems Exam Vitals Vital Signs Date Temp Pulse Resp B/P (MAP) Pulse Ox O2 O2 Flow FiO2 Time Delivery Rate 05/16/18 92 20 92/44 (60) 99 Mechanical 13:00 Ventilator 05/16/18 98.5 12:00 05/16/18 40 05:16 05/12/18 4.0 17:00 Intake and Output 05/15/18 05/15/18 05/16/18 1515:00 23:00 07:00 IntakeIntake Total 1389.04 ml 927.22 ml 955.88 ml OutputOutput Total 1975 ml 420 ml 360 ml BalanceBalance -585.96 ml 507.22 ml 595.88 ml Exam Constitutional: well developed, non-verbal, frail, obese, other (chronically debilitated, orally intubated and sedated) Head: normocephalic, atraumatic Eyes: nl conjunctiva, nl lids ENMT: nl external ears & nose, intubated, other (orally intubated) Neck: other (old trach site with with dressing dry and intact) Respiratory: diminished breath sounds, other (on ventilator support, AC, FiO2 40%) Cardiovascular: regular rate and rhythm, nl pulses Gastrointestinal: soft, non-tender, bowel sounds; No distended Genitourinary - Female: other (Garza in place with yellow urine; HD catheter in R groin c/d/i) Musculoskeletal: other (eschar on toes; bilateral foot drop) Extremities: edema (all four extremities) Neurological: other (sedated with Diprivan but opens eyes with verbal and tactile stimuli and falls easily back to sleep) Skin: nl turgor, dry, other (wounds- nurses notes and photos reviewed in chart) Gastrointestinal: other Results Result Diagram: 05/16/18 0500 05/16/18 0500 Results 24hrs Laboratory Tests Test 05/16/18 05:00 White Blood Count 8.5 # Red Blood Count 2.57 L Hemoglobin 8.6 L Hematocrit 27.2 L Mean Corpuscular Volume 105.8 H Mean Corpuscular Hemoglobin 33.5 H Mean Corpuscular Hemoglobin Concent 31.6 L Red Cell Distribution Width 17.4 H Platelet Count 157 Mean Platelet Volume 9.6 Immature Granulocytes % 0.700 H Neutrophils % 85.6 H Lymphocytes % 7.2 L Monocytes % 2.7 Eosinophils % 3.7 Basophils % 0.1 Nucleated Red Blood Cells % 0.0 Immature Granulocytes # 0.060 H Neutrophils # 7.2 Lymphocytes # 0.6 L Monocytes # 0.2 L Eosinophils # 0.3 Basophils # 0.0 Nucleated Red Blood Cells # 0.0 Sodium Level 139 Potassium Level 3.2 L Chloride Level 101 Carbon Dioxide Level 28 Anion Gap 10 # Blood Urea Nitrogen 90 H Creatinine 1.94 H Est Glomerular Filtrat Rate mL/min Glucose Level 80 Calcium Level 8.1 L Phosphorus Level 3.5 Magnesium Level 1.7 Imaging Imaging CXR 05/15/2018: Mixed interstitial and alveolar infiltrates possibly representing edema, atypical pneumonia, or pneumonitis are mildly improved. Medications Medication Current Medications IV Flush (NS 10 ml) 10 ml PRN IV ; Start 05/06/18 at 20:30 Ascorbic Acid (Vitamin C) 500 mg DAILY GTB Last administered on 05/16/18at 08:52; Admin Dose 500 MG; Start 05/07/18 at 09:00 Albuterol/ Ipratropium (Duoneb) 3 ml Q2H RESP THERAPY PRN HHN SHORTNESS OF BREATH; Start 05/06/18 at 23:30 Lorazepam (Ativan Intensol) 0.5 mg Q6H PRN PEG ANXIETY; Start 05/06/18 at 23:30 Zinc Sulfate (Zinc Sulfate) 220 mg DAILY GTB Last administered on 05/16/18at 08:52; Admin Dose 220 MG; Start 05/07/18 at 09:00 Ondansetron HCl (Zofran Tab) 4 mg Q6H PRN GTB NAUSEA AND/OR VOMITING; Start 05/07/18 at 00:15 Multivitamins (Multivitamin) 30 ml DAILY GTB Last administered on 05/16/18at 08:52; Admin Dose 30 ML; Start 05/07/18 at 09:00 Epoetin Zen (Epogen (Esrd)) 20,000 units Tu@1700 SC Last administered on 05/12/18 17:36; Admin Dose 20,000 UNITS; Start 05/12/18 at 17:00 Norepinephrine 250 ml @ 1.875 mls/ hr TITRATE IV Last administered on 05/08/18 13:33; Admin Dose 33.75 MLS/HR; Start 05/08/18 at 03:00 Citric Acid/ Sodium Citrate (Bicitra) 30 ml Q8 PO Last administered on 05/16/18 05:25; Admin Dose 30 ML; Start 05/09/18 at 08:00 Phenylephrine HCl 80 mg/Dextrose 250 ml @ 18.75 mls/ hr TITRATE IV Last a dministered on 05/15/18 01:50; Admin Dose 5.63 MLS/HR; Start 05/09/18 at 12:30 Miscellaneous Information (Pending Santyl Order For Wound Care) This patient goldman... PRN PRN XX WOUND CARE; Start 05/09/18 at 17:00 Vancomycin HCl (Vancomycin Oral Syringe) 250 mg Q6 PO Last administered on 05/16/18 12:17; Admin Dose 250 MG; Start 05/12/18 at 00:00 Metronidazole 100 ml @ 100 mls/hr Q8 IVPB Last administered on 05/16/18 05:25; Admin Dose 100 MLS/HR; Start 05/11/18 at 20:00 Collagenase (Santyl) 1 applic DAILY TOP Last administered on 05/16/18 08:52; Admin Dose 1 APPLIC; Start 05/13/18 at 09:00 Propofol 100 ml @ 2.64 mls/hr Q12H IV Last administered on 05/16/18 11:05; Admin Dose 15.84 MLS/HR; Start 05/12/18 at 18:30 Albuterol (Ventolin Hfa) 4 puff Q6H RESP THERAPY INH Last administered on 05/16/18 13:51; Admin Dose 4 PUFF; Start 05/12/18 at 20:00 Ipratropium [place] (Atrovent Hfa) 4 puff Q6H RESP THERAPY INH Last administered on 05/16/18 13:51; Admin Dose 4 PUFF; Start 05/12/18 at 20:00 Meropenem/Sodium Chloride 50 ml @ 100 mls/hr Q12 IVPB Last administered on 05/16/18 08:50; Admin Dose 100 MLS/HR; Start 05/13/18 at 21:00 Linezolid 300 ml @ 300 mls/hr Q12 IVPB Last administered on 05/16/18at 08:54; Admin Dose 300 MLS/HR; Start 05/13/18 at 14:30 Cholestyramine Resin (Questran Light) 4 gm BID PO Last administered on 05/16/18 08:54; Admin Dose 4 GM; Start 05/14/18 at 21:00 Sodium Chloride 1,000 ml @ 50 mls/hr Q20H IV Last administered on 05/16/18 12:18; Admin Dose 50 MLS/HR; Start 05/15/18 at 08:00 LAURA JOSHI NP May 16, 2018 14:19
--- NOTE | 2018-05-16 14:22 | CONS ---
Assessment/Plan Assessment/Plan Assessment/Plan (Daily) 1. Malfunctioning gastrostomy tube. 2. Renal failure. Uremia better 3. Sepsis. 4. Hyponatremia. 5. Chronic obstructive pulmonary disease. 6. Bipolar. 7. Paroxysmal atrial fibrillation. 8. Critical care myopathy. 9. Anemia of chronic disease. 10. Diastolic failure. 11. Elevated alk phos with h/o hepatic venous congestion seen on abd CT in 2018 12. C. difficile colitis 13 profuse diarrhea, it is slowing down now. Will continue Questran PLAN: Continue vancomycin Increase feeding There is no evidence of GI bleeding and will start the patient on Pepcid We will stop PPI Question 4 g twice daily Consultation Date/Type/Reason Admit Date/Time May 06, 2018 at 17:38 Initial Consult Date 05/10/18 Requesting Provider: ROLAND GIRON MD Date/Time of Note DATE: 05/16/18 TIME: 14:21 24 HR Interval Summary Free Text/Dictation Diarrhea reduced Constitutional: improved Exam/Review of Systems Exam Vitals Vital Signs Date Temp Pulse Resp B/P (MAP) Pulse Ox O2 O2 Flow FiO2 Time Delivery Rate 05/16/18 92 20 92/44 (60) 99 Mechanical 13:00 Ventilator 05/16/18 98.5 12:00 05/16/18 40 05:16 05/12/18 4.0 17:00 Intake and Output 05/15/18 05/15/18 05/16/18 1414:59 22:59 06:59 IntakeIntake Total 1367.57 ml 892.85 ml 1046.72 ml OutputOutput Total 2005 ml 430 ml 400 ml BalanceBalance -637.43 ml 462.85 ml 646.72 ml Constitutional: alert Respiratory: diminished breath sounds Results Result Diagram: 05/16/18 0500 05/16/18 0500 Results 24hrs Laboratory Tests Test 05/16/18 05:00 White Blood Count 8.5 # Red Blood Count 2.57 L Hemoglobin 8.6 L Hematocrit 27.2 L Mean Corpuscular Volume 105.8 H Mean Corpuscular Hemoglobin 33.5 H Mean Corpuscular Hemoglobin Concent 31.6 L Red Cell Distribution Width 17.4 H Platelet Count 157 Mean Platelet Volume 9.6 Immature Granulocytes % 0.700 H Neutrophils % 85.6 H Lymphocytes % 7.2 L Monocytes % 2.7 Eosinophils % 3.7 Basophils % 0.1 Nucleated Red Blood Cells % 0.0 Immature Granulocytes # 0.060 H Neutrophils # 7.2 Lymphocytes # 0.6 L Monocytes # 0.2 L Eosinophils # 0.3 Basophils # 0.0 Nucleated Red Blood Cells # 0.0 Sodium Level 139 Potassium Level 3.2 L Chloride Level 101 Carbon Dioxide Level 28 Anion Gap 10 # Blood Urea Nitrogen 90 H Creatinine 1.94 H Est Glomerular Filtrat Rate mL/min Glucose Level 80 Calcium Level 8.1 L Phosphorus Level 3.5 Magnesium Level 1.7 Medications Medication Current Medications IV Flush (NS 10 ml) 10 ml PRN IV ; Start 05/06/18 at 20:30 Ascorbic Acid (Vitamin C) 500 mg DAILY GTB Last administered on 05/16/18 08:52; Admin Dose 500 MG; Start 05/07/18 at 09:00 Albuterol/ Ipratropium (Duoneb) 3 ml Q2H RESP THERAPY PRN HHN SHORTNESS OF BREATH; Start 05/06/18 at 23:30 Lorazepam (Ativan Intensol) 0.5 mg Q6H PRN PEG ANXIETY; Start 05/06/18 at 23:30 Zinc Sulfate (Zinc Sulfate) 220 mg DAILY GTB Last administered on 05/16/18 08:52; Admin Dose 220 MG; Start 05/07/18 at 09:00 Ondansetron HCl (Zofran Tab) 4 mg Q6H PRN GTB NAUSEA AND/OR VOMITING; Start 05/07/18 at 00:15 Multivitamins (Multivitamin) 30 ml DAILY GTB Last administered on 05/16/18at 0 8:52; Admin Dose 30 ML; Start 05/07/18 at 09:00 Epoetin Zen (Epogen (Esrd)) 20,000 units Tu@1700 SC Last administered on 05/12/18 17:36; Admin Dose 20,000 UNITS; Start 05/12/18 at 17:00 Norepinephrine 250 ml @ 1.875 mls/ hr TITRATE IV Last administered on 05/08/18 13:33; Admin Dose 33.75 MLS/HR; Start 05/08/18 at 03:00 Citric Acid/ Sodium Citrate (Bicitra) 30 ml Q8 PO Last administered on 05:25; Admin Dose 30 ML; Start 05/09/18 at 08:00 Phenylephrine HCl 80 mg/Dextrose 250 ml @ 18.75 mls/ hr TITRATE IV Last administered on 05/15/18 01:50; Admin Dose 5.63 MLS/HR; Start 05/09/18 at 12:30 Miscellaneous Information (Pending Santyl Order For Wound Care) This patient goldman... PRN PRN XX WOUND CARE; Start 05/09/18 at 17:00 Vancomycin HCl (Vancomycin Oral Syringe) 250 mg Q6 PO Last administered on 05/16/18 12:17; Admin Dose 250 MG; Start 05/12/18 at 00:00 Metronidazole 100 ml @ 100 mls/hr Q8 IVPB Last administered on 05/16/18 05:25; Admin Dose 100 MLS/HR; Start 05/11/18 at 20:00 Collagenase (Santyl) 1 applic DAILY TOP Last administered on 05/16/18 08:52; Admin Dose 1 APPLIC; Start 05/13/18 at 09:00 Propofol 100 ml @ 2.64 mls/hr Q12H IV Last administered on 05/16/18 11:05; Admin Dose 15.84 MLS/HR; Start 05/12/18 at 18:30 Albuterol (Ventolin Hfa) 4 puff Q6H RESP THERAPY INH Last administered on 05/16/18 13:51; Admin Dose 4 PUFF; Start 05/12/18 at 20:00 Ipratropium [place] (Atrovent Hfa) 4 puff Q6H RESP THERAPY INH Last administered on 05/16/18 13:51; Admin Dose 4 PUFF; Start 05/12/18 at 20:00 Meropenem/Sodium Chloride 50 ml @ 100 mls/hr Q12 IVPB Last administered on 05/16/18 08:50; Admin Dose 100 MLS/HR; Start 05/13/18 at 21:00 Linezolid 300 ml @ 300 mls/hr Q12 IVPB Last administered on 05/16/18 08:54; Admin Dose 300 MLS/HR; Start 05/13/18 at 14:30 Cholestyramine Resin (Questran Light) 4 gm BID PO Last administered on 05/16/18 08:54; Admin Dose 4 GM; Start 05/14/18 at 21:00 Sodium Chloride 1,000 ml @ 50 mls/hr Q20H IV Last administered on 05/16/18at 12:18; Admin Dose 50 MLS/HR; Start 05/15/18 at 08:00 QUINTEN UMAÑA MD May 16, 2018 14:22
--- NOTE | 2018-05-16 16:44 | PN ---
Date/Time of Note Date/Time of Note DATE: 05/16/18 TIME: 16:43 Assessment/Plan VTE Prophylaxis Risk score (from [facility] [place]0 risk: 11 SCD applied (from [facility] [place]): No SCD contraindicated: other Pharmacological prophylaxis: other Pharm contraindication: other Lines/Catheters IV C[facility]ter Type (from [facility] KASANDRA CATHETER Central line still needed: Yes Urinary Cath still in place: Yes Reason Cath still needed: urinary retention Assessment/Plan Assessment/Plan - Hypokalemia- replace K. BMP am, -Septic shock secondary to urinary tract infection, anterior neck soft tissue infection, and C. difficile colitis. Continue pressors for hemodynamic support, IV fluids, antibiotics per ID. Dr. Black is following in infection disease consultation. -Acute respiratory failure requiring intubation and ventilatory support. Dr. Lambert is following in pulmonology consultation. -Acute kidney injury on chronic kidney disease. Plan for initiating hemodialysis. Dr. Mckeon is following in nephrology consultation. -Metabolic acidosis, resolved. -Acute diastolic congestive heart failure. Dr. Scanlon is following in cardiology consultation. -Paroxysmal atrial fibrillation, remains sinus rhythm -COPD -Dysphagia with PEG. -G-tube mild malfunction, changed by GI Dr. Carolina is following in gastroenterology consultation. -Obesity Critical care time spent is 30 minutes. Further recommendations based on clinical course. Plan of care discussed with Dr. Eisenberg. Result Diagram: 05/16/18 0500 05/16/18 0500 Results 24hrs Laboratory Tests Test 05/16/18 05:00 White Blood Count 8.5 # Red Blood Count 2.57 L Hemoglobin 8.6 L Hematocrit 27.2 L Mean Corpuscular Volume 105.8 H Mean Corpuscular Hemoglobin 33.5 H Mean Corpuscular Hemoglobin Concent 31.6 L Red Cell Distribution Width 17.4 H Platelet Count 157 Mean Platelet Volume 9.6 Immature Granulocytes % 0.700 H Neutrophils % 85.6 H Lymphocytes % 7.2 L Monocytes % 2.7 Eosinophils % 3.7 Basophils % 0.1 Nucleated Red Blood Cells % 0.0 Immature Granulocytes # 0.060 H Neutrophils # 7.2 Lymphocytes # 0.6 L Monocytes # 0.2 L Eosinophils # 0.3 Basophils # 0.0 Nucleated Red Blood Cells # 0.0 Sodium Level 139 Potassium Level 3.2 L Chloride Level 101 Carbon Dioxide Level 28 Anion Gap 10 # Blood Urea Nitrogen 90 H Creatinine 1.94 H Est Glomerular Filtrat Rate mL/min Glucose Level 80 Calcium Level 8.1 L Phosphorus Level 3.5 Magnesium Level 1.7 Subjective 24 Hr Interval Summary Free Text/Dictation remains intubated and comfortable on pressors afebrile opens eyes at times HD today dw staff Constitutional: requiring IVF, requiring O2 Exam/Review of Systems Exam Vitals Vital Signs Date Temp Pulse Resp B/P (MAP) Pulse Ox O2 O2 Flow FiO2 Time Delivery Rate 05/16/18 96 15:45 05/16/18 22 124/65 99 Mechanical 15:30 (84) Ventilator 05/16/18 40 12:00 05/16/18 98.5 12:00 05/12/18 4.0 17:00 Intake and Output 05/15/18 05/15/18 05/16/18 1515:00 23:00 07:00 IntakeIntake Total 1389.04 ml 927.22 ml 1156.72 ml OutputOutput Total 1975 ml 420 ml 420 ml BalanceBalance -585.96 ml 507.22 ml 736.72 ml Constitutional: well developed, non-verbal, frail Psych: nl mood/affect Head: atraumatic Eyes: nl lids, nl sclera ENMT: nl external ears & nose Neck: non-tender Respiratory: diminished breath sounds (at bases bilaterally) Cardiovascular: nl pulses, other (s1s2) Gastrointestinal: soft, non-tender, other (GT intact) Musculoskeletal: muscle weakness, range of motion Extremities: edema Neurological: confused, lethargic Skin: other Results Results 24hrs Laboratory Tests Test 05/16/18 05:00 White Blood Count 8.5 # Red Blood Count 2.57 L Hemoglobin 8.6 L Hematocrit 27.2 L Mean Corpuscular Volume 105.8 H Mean Corpuscular Hemoglobin 33.5 H Mean Corpuscular Hemoglobin Concent 31.6 L Red Cell Distribution Width 17.4 H Platelet Count 157 Mean Platelet Volume 9.6 Immature Granulocytes % 0.700 H Neutrophils % 85.6 H Lymphocytes % 7.2 L Monocytes % 2.7 Eosinophils % 3.7 Basophils % 0.1 Nucleated Red Blood Cells % 0.0 Immature Granulocytes # 0.060 H Neutrophils # 7.2 Lymphocytes # 0.6 L Monocytes # 0.2 L Eosinophils # 0.3 Basophils # 0.0 Nucleated Red Blood Cells # 0.0 Sodium Level 139 Potassium Level 3.2 L Chloride Level 101 Carbon Dioxide Level 28 Anion Gap 10 # Blood Urea Nitrogen 90 H Creatinine 1.94 H Est Glomerular Filtrat Rate mL/min Glucose Level 80 Calcium Level 8.1 L Phosphorus Level 3.5 Magnesium Level 1.7 Medications Medication Current Medications IV Flush (NS 10 ml) 10 ml PRN IV ; Start 05/06/18 at 20:30 Ascorbic Acid (Vitamin C) 500 mg DAILY GTB Last administered on 05/16/18 08:52; Admin Dose 500 MG; Start 05/07/18 at 09:00 Albuterol/ Ipratropium (Duoneb) 3 ml Q2H RESP THERAPY PRN HHN SHORTNESS OF BREATH; Start 05/06/18 at 23:30 Lorazepam (Ativan Intensol) 0.5 mg Q6H PRN PEG ANXIETY; Start 05/06/18 at 23:30 Zinc Sulfate (Zinc Sulfate) 220 mg DAILY GTB Last administered on 05/16/18 08:52; Admin Dose 220 MG; Start 05/07/18 at 09:00 Ondansetron HCl (Zofran Tab) 4 mg Q6H PRN GTB NAUSEA AND/OR VOMITING; Start at 00:15 Multivitamins (Multivitamin) 30 ml DAILY GTB Last administered on 05/16/18 08:52; Admin Dose 30 ML; Start 05/07/18 at 09:00 Epoetin Zen (Epogen (Esrd)) 20,000 units Tu@1700 SC Last administered on 05/12/18at 17:36; Admin Dose 20,000 UNITS; Start 05/12/18 at 17:00 Norepinephrine 250 ml @ 1.875 mls/ hr TITRATE IV Last administered on 05/08/18at 13:33; Admin Dose 33.75 MLS/HR; Start 05/08/18 at 03:00 Citric Acid/ Sodium Citrate (Bicitra) 30 ml Q8 PO Last administered on 05/16/18 at 15:56; Admin Dose 30 ML; Start 05/09/18 at 08:00 Phenylephrine HCl 80 mg/Dextrose 250 ml @ 18.75 mls/ hr TITRATE IV Last administered on 05/15/18at 01:50; Admin Dose 5.63 MLS/HR; Start 05/09/18 at 12:30 Miscellaneous Information (Pending Santyl Order For Wound Care) This patient goldman... PRN PRN XX WOUND CARE; Start 05/09/18 at 17:00 Vancomycin HCl (Vancomycin Oral Syringe) 250 mg Q6 PO Last administered on 05/16/18 12:17; Admin Dose 250 MG; Start 05/12/18 at 00:00 Metronidazole 100 ml @ 100 mls/hr Q8 IVPB Last administered on 05/16/18 05:25; Admin Dose 100 MLS/HR; Start 05/11/18 at 20:00 Collagenase (Santyl) 1 applic DAILY TOP Last administered on 05/16/18 08:52; Admin Dose 1 APPLIC; Start 05/13/18 at 09:00 Propofol 100 ml @ 2.64 mls/hr Q12H IV Last administered on 05/16/18 11:05; Admin Dose 15.84 MLS/HR; Start 05/12/18 at 18:30 Albuterol (Ventolin Hfa) 4 puff Q6H RESP THERAPY INH Last administered on 05/16/18 13:51; Admin Dose 4 PUFF; Start 05/12/18 at 20:00 Ipratropium [place] (Atrovent Hfa) 4 puff Q6H RESP THERAPY INH Last administered on 05/16/18 13:51; Admin Dose 4 PUFF; Start 05/12/18 at 20:00 Meropenem/Sodium Chloride 50 ml @ 100 mls/hr Q12 IVPB Last administered on 05/16/18 08:50; Admin Dose 100 MLS/HR; Start 05/13/18 at 21:00 Linezolid 300 ml @ 300 mls/hr Q12 IVPB Last administered on 05/16/18 08:54; Admin Dose 300 MLS/HR; Start 05/13/18 at 14:30 Cholestyramine Resin (Questran Light) 4 gm BID PO Last administered on 05/16/18 08:54; Admin Dose 4 GM; Start 05/14/18 at 21:00 Sodium Chloride 1,000 ml @ 50 mls/hr Q20H IV Last administered on 05/16/18 12:18; Admin Dose 50 MLS/HR; Start 05/15/18 at 08:00 Heparin Sodium (Porcine) (Heparin (1000 Units/ml)) 2,800 unit AFTER DIALYSIS CATHETER ; Start 05/16/18 at 16:30 KERON MORAN May 16, 2018 16:44
[2018-05-16] MEDS: HEPARIN 1000 UNITS/ML 10 ML INJ CATHETER SCH (19:25)
[2018-05-17] VITALS (37 sets, daily range): BP systolic 104–136; BP diastolic 50–106; PULSE 95–123; RESP 9–28
[2018-05-17] MEDS: VANCOMYCIN HCL 250 MG/5ML POSYG PO SCH ×5 (00:12→23:44)
[2018-05-17] MEDS: IPRATROPIUM (HFA) 12.9 GM INHALER INH SCH ×3 (02:22→14:28)
[2018-05-17] MEDS: ALBUTEROL HFA 8 GM INHALER INH SCH ×3 (02:22→14:28)
[2018-05-17] MEDS: PROPOFOL 100 ML IV SCH ×4 (04:12→20:45)
[2018-05-17] MEDS: CITRIC ACID/NA CITRATE 30 ML CUP PO SCH ×3 (05:12→22:06)
[2018-05-17] MEDS: metroNIDAZOLE 500 MG/NS (PMX) 100 ML IVPB SCH ×3 (05:13→22:06)
--- NOTE | 2018-05-17 07:12 | PN ---
Date/Time of Note Date/Time of Note DATE: 05/17/18 TIME: 07:10 Assessment/Plan VTE Prophylaxis Risk score (from Ns)>0 risk: 11 SCD applied (from [facility]): No SCD contraindicated: other Pharmacological prophylaxis: other Lines/Catheters IV Catheter Type (from [facility]): KASANDRA CATH Urinary Cath still in place: Yes Reason Cath still needed: urinary retention Assessment/Plan Hospital Course renal follow up SUBJECTIVE: The patient remains critically ill on pressor support, on full ventilatory support. The patient was started on HD and was dialyzed yesterday for volume removal and solute clearance. No other events noted. No hemoptysis, hematemesis, hematochezia. vent settings were reviewed d/w Dr Mckeon UOP is increasing OBJECTIVE: HEENT: Head is normocephalic. NECK: Supple. HEART: Regular rate. LUNGS: Show diminished breath sounds at the base. ABDOMEN: Soft, nontender to palpation without rebound or guarding. EXTREMITIES: Negative for clubbing, cyanosis. Positive edema, diffuse anasarca. DERMATOLOGIC: No rashes. MUSCULOSKELETAL: No joint effusions. NEUROLOGIC: No change in exam. MEDICATIONS: Reviewed. ASSESSMENT AND PLAN: 1. Nonoliguric acute kidney injury on top of chronic kidney disease with previous baseline creatinine of 2.5 mg/dL. Etiology of acute kidney injury is secondary to shock, sepsis, hemodynamics. The patient's renal function has been fluctuating. The patient was started on dialysis for volume removal and solute clearance. her UOP is increasing. will reevaluate the patient in am for her dialytic needs 2. Metabolic acidosis. improving 3. Anemia. Monitor hemoglobin and hematocrit levels. 4. Mineral bone disorder. Monitor calcium and phosphorus levels. 5. Volume overload. The patient has diffuse anasarca, pulmonary congestion. 6. Septic shock secondary to urinary tract infection, pneumonia. Continue current antibiotic regimen. Continue pressor support. 7. Tachyarrhythmia. Continue to monitor. 8. Ventilator-dependent respiratory failure. Vent settings and ABG was reviewed. Continue to monitor. 8. Dysphagia status post PEG. Continue tube feeding. 9. Acute encephalopathy, etiology is toxic metabolic. 10. Decompensated heart failure. Continue medical management. Result Diagram: 05/16/18 0500 05/16/18 0500 Exam/Review of Systems Exam Vitals Vital Signs Date Temp Pulse Resp B/P (MAP) Pulse Ox O2 O2 Flow FiO2 Time Delivery Rate 05/17/18 102 27 114/62 96 Mechanical 06:00 (79) Ventilator 05/17/18 35 05:05 05/17/18 98.6 04:00 Intake and Output 05/16/18 05/16/18 05/17/18 1515:00 23:00 07:00 IntakeIntake Total 1326.72 ml 1052.52 ml 1100 ml OutputOutput Total 540 ml 2640 ml 320 ml BalanceBalance 786.72 ml -1587.48 ml 780 ml Medications Medication Current Medications IV Flush (NS 10 ml) 10 ml PRN IV ; Start 05/06/18 at 20:30 Ascorbic Acid (Vitamin C) 500 mg DAILY GTB Last administered on 05/16/18 08:52; Admin Dose 500 MG; Start 05/07/18 at 09:00 Albuterol/ Ipratropium (Duoneb) 3 ml Q2H RESP THERAPY PRN HHN SHORTNESS OF BREATH; Start 05/06/18 at 23:30 Lorazepam (Ativan Intensol) 0.5 mg Q6H PRN PEG ANXIETY; Start 05/06/18 at 23:30 Zinc Sulfate (Zinc Sulfate) 220 mg DAILY GTB Last administered on 05/16/18 08:52; Admin Dose 220 MG; Start 05/07/18 at 09:00 Ondansetron HCl (Zofran Tab) 4 mg Q6H PRN GTB NAUSEA AND/OR VOMITING; Start 05/07/18 at 00:15 Multivitamins (Multivitamin) 30 ml DAILY GTB Last administered on 05/16/18 08:52; Admin Dose 30 ML; Start 05/07/18 at 09:00 Epoetin Zen (Epogen (Esrd)) 20,000 units Tu@1700 SC Last administered on 05/12/18 17:36; Admin Dose 20,000 UNITS; Start 05/12/18 at 17:00 Norepinephrine 250 ml @ 1.875 mls/ hr TITRATE IV Last administered on 05/08/18 13:33; Admin Dose 33.75 MLS/HR; Start 05/08/18 at 03:00 Citric Acid/ Sodium Citrate (Bicitra) 30 ml Q8 PO Last administered on 05/17/18 05:12; Admin Dose 30 ML; Start 05/09/18 at 08:00 Phenylephrine HCl 80 mg/Dextrose 250 ml @ 18.75 mls/ hr TITRATE IV Last a dministered on 05/15/18 01:50; Admin Dose 5.63 MLS/HR; Start 05/09/18 at 12:30 Miscellaneous Information (Pending Santyl Order For Wound Care) This patient goldman... PRN PRN XX WOUND CARE; Start 05/09/18 at 17:00 Vancomycin HCl (Vancomycin Oral Syringe) 250 mg Q6 PO Last administered on 05/17/18 05:12; Admin Dose 250 MG; Start 05/12/18 at 00:00 Metronidazole 100 ml @ 100 mls/hr Q8 IVPB Last administered on 05/17/18 05:13; Admin Dose 100 MLS/HR; Start 05/11/18 at 20:00 Collagenase (Santyl) 1 applic DAILY TOP Last administered on 05/16/18 08:52; Admin Dose 1 APPLIC; Start 05/13/18 at 09:00 Propofol 100 ml @ 2.64 mls/hr Q12H IV Last administered on 05/17/18 06:13; Admin Dose 15.84 MLS/HR; Start 05/12/18 at 18:30 Albuterol (Ventolin Hfa) 4 puff Q6H RESP THERAPY INH Last administered on 05/17/18 02:22; Admin Dose 4 PUFF; Start 05/12/18 at 20:00 Ipratropium [place] (Atrovent Hfa) 4 puff Q6H RESP THERAPY INH Last administered on 05/17/18 02:22; Admin Dose 4 PUFF; Start 05/12/18 at 20:00 Meropenem/Sodium Chloride 50 ml @ 100 mls/hr Q12 IVPB Last administered on 05/16/18 21:02; Admin Dose 100 MLS/HR; Start 05/13/18 at 21:00 Linezolid 300 ml @ 300 mls/hr Q12 IVPB Last administered on 05/16/18 21:01; Admin Dose 300 MLS/HR; Start 05/13/18 at 14:30 Cholestyramine Resin (Questran Light) 4 gm BID PO Last administered on 05/16/18 21:02; Admin Dose 4 GM; Start 05/14/18 at 21:00 Sodium Chloride 1,000 ml @ 50 mls/hr Q20H IV Last administered on 05/16/18at 12:18; Admin Dose 50 MLS/HR; Start 05/15/18 at 08:00 Heparin Sodium (Porcine) (Heparin (1000 Units/ml)) 2,800 unit AFTER DIALYSIS CATHETER Last administered on 05/16/18at 19:25; Admin Dose 2,800 UNIT; Start 05/16/18 at 16:30 FELICIANO ROSAS DO May 17, 2018 07:12
[2018-05-17] MEDS: CHOLESTYRAMINE (LIGHT) 4 GM PACKET PO SCH ×2 (08:21→21:23)
[2018-05-17] MEDS: MULTIVITAMINS 30 ML CUP GTB SCH (08:21)
[2018-05-17] MEDS: ASCORBIC ACID 500 MG TAB GTB SCH (08:21)
[2018-05-17] MEDS: LINEZOLID 600 MG/300 ML (PMX) 300 ML IVPB SCH ×2 (08:21→21:23)
[2018-05-17] MEDS: ZINC SULFATE 220 MG CAP GTB SCH (08:21)
[2018-05-17] MEDS: BALSAM PERU/CASTOR OIL 60 GM TUBE TOP SCH ×2 (08:23→21:23)
[2018-05-17] MEDS: COLLAGENASE 5 GM (UD JAR) TOP SCH (08:23)
[2018-05-17] MEDS: MEROPENEM 500MG/50 ML (PMX) 50 ML IVPB SCH ×2 (08:59→21:23)
--- NOTE | 2018-05-17 09:07 | CONS ---
Assessment/Plan Assessment/Plan Assessment/Plan (Daily) Ventilator setting; AC of 20, tidal volume 500, PEEP of 5, 35% FiO2. Assessment and recommendations; 1. Patient with history of chronic respiratory failure with recent decannulation of tracheostomy admitted for sepsis and pneumonia currently on appropriate antimicrobial regimen 2. Multiple decubitus ulcers growing multiple organisms. 3. Acute encephalopathy. 4. Renal failure, now requiring hemodialysis. 4. C. difficile colitis. Continue current supportive care. Hold sedation. Perform a CPAP trial as tolerated. Obtain follow-up chest x-ray. Hemodialysis per licensed certified orthotist. Prognosis appears guarded. 35 minutes of critical care time was spent evaluating the patient. Consultation Date/Type/Reason Admit Date/Time May 06, 2018 at 17:38 Initial Consult Date 05/10/18 Type of Consult Pulmonary/critical care Requesting Provider: ROLAND GIRON MD Date/Time of Note DATE: 05/17/18 TIME: 09:04 24 HR Interval Summary Free Text/Dictation Patient's condition remains critical. Patient however has remained hemodynamically stable. General exam; elderly female, sedated, currently in no distress. Exam/Review of Systems Exam Vitals Vital Signs Date Temp Pulse Resp B/P (MAP) Pulse Ox O2 O2 Flow FiO2 Time Delivery Rate 05/17/18 103 08:00 05/17/18 27 114/62 96 Mechanical 06:00 (79) Ventilator 05/17/18 35 05:05 05/17/18 98.6 04:00 Intake and Output 05/16/18 05/16/18 05/17/18 1515:00 23:00 07:00 IntakeIntake Total 1326.72 ml 1052.52 ml 1100 ml OutputOutput Total 540 ml 2640 ml 320 ml BalanceBalance 786.72 ml -1587.48 ml 780 ml Exam H EENT exam; supple neck, no JVD. No lymphadenopathy. Midline trachea. No thyromegaly. Patient does have multiple carious teeth. Dressing applied over prior tracheostomy site. Orally intubated. Chest exam; diminished breath sounds bilaterally. S1-S2 audible, no murmurs. Regular rhythm. Abdomen exam; soft, nondistended. No organomegaly. G-tube in place. Bowel sounds audible. Extremity exam; no edema. 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 Results Result Diagram: 05/16/18 0500 05/16/18 0500 Medications Medication Current Medications IV Flush (NS 10 ml) 10 ml PRN IV ; Start 05/06/18 at 20:30 Ascorbic Acid (Vitamin C) 500 mg DAILY GTB Last administered on 05/17/18 08:21; Admin Dose 500 MG; Start 05/07/18 at 09:00 Albuterol/ Ipratropium (Duoneb) 3 ml Q2H RESP THERAPY PRN HHN SHORTNESS OF BREATH; Start 05/06/18 at 23:30 Lorazepam (Ativan Intensol) 0.5 mg Q6H PRN PEG ANXIETY; Start 05/06/18 at 23:30 Zinc Sulfate (Zinc Sulfate) 220 mg DAILY GTB Last administered on 05/17/18at 08:21; Admin Dose 220 MG; Start 05/07/18 at 09:00 Ondansetron HCl (Zofran Tab) 4 mg Q6H PRN GTB NAUSEA AND/OR VOMITING; Start 05/07/18 at 00:15 Multivitamins (Multivitamin) 30 ml DAILY GTB Last administered on 05/17/18at 08:21; Admin Dose 30 ML; Start 05/07/18 at 09:00 Epoetin Zen (Epogen (Esrd)) 20,000 units Tu@1700 SC Last administered on 05/12/18at 17:36; Admin Dose 20,000 UNITS; Start 05/12/18 at 17:00 Norepinephrine 250 ml @ 1.875 mls/ hr TITRATE IV Last administered on 05/08/18at 13:33; Admin Dose 33.75 MLS/HR; Start 05/08/18 at 03:00 Citric Acid/ Sodium Citrate (Bicitra) 30 ml Q8 PO Last administered on 05/17/18at 05:12; Admin Dose 30 ML; Start 05/09/18 at 08:00 Phenylephrine HCl 80 mg/Dextrose 250 ml @ 18.75 mls/ hr TITRATE IV Last administered on 05/15/18at 01:50; Admin Dose 5.63 MLS/HR; Start 05/09/18 at 12:30 Miscellaneous Information (Pending [facility] Order For Wound Care) This patient goldman... PRN PRN XX WOUND CARE; Start 05/09/18 at 17:00 Vancomycin HCl (Vancomycin Oral Syringe) 250 mg Q6 PO Last administered on 04/19 05:12; Admin Dose 250 MG; Start 05/12/18 at 00:00 Metronidazole 100 ml @ 100 mls/hr Q8 IVPB Last administered on 05/17/18 05:13; Admin Dose 100 MLS/HR; Start 05/11/18 at 20:00 Collagenase (Santyl) 1 applic DAILY TOP Last administered on 05/17/18 08:23; Admin Dose 1 APPLIC; Start 05/13/18 at 09:00 Propofol 100 ml @ 2.64 mls/hr Q12H IV Last administered on 05/17/18 06:13; Admin Dose 15.84 MLS/HR; Start 05/12/18 at 18:30 Albuterol (Ventolin Hfa) 4 puff Q6H RESP THERAPY INH Last administered on 05/17/18 08:09; Admin Dose 4 PUFF; Start 05/12/18 at 20:00 Ipratropium [place] (Atrovent Hfa) 4 puff Q6H RESP THERAPY INH Last administered on 05/17/18 08:09; Admin Dose 4 PUFF; Start 05/12/18 at 20:00 Meropenem/Sodium Chloride 50 ml @ 100 mls/hr Q12 IVPB Last administered on 05/17/18 08:59; Admin Dose 100 MLS/HR; Start 05/13/18 at 21:00 Linezolid 300 ml @ 300 mls/hr Q12 IVPB Last administered on 05/17/18 08:21; Admin Dose 300 MLS/HR; Start 05/13/18 at 14:30 Cholestyramine Resin (Questran Light) 4 gm BID PO Last administered on 05/17/18 08:21; Admin Dose 4 GM; Start 05/14/18 at 21:00 Sodium Chloride 1,000 ml @ 50 mls/hr Q20H IV Last administered on 05/16/18 12:18; Admin Dose 50 MLS/HR; Start 05/15/18 at 08:00 Heparin Sodium (Porcine) (Heparin (1000 Units/ml)) 2,800 unit AFTER DIALYSIS CATHETER Last administered on 05/16/18 19:25; Admin Dose 2,800 UNIT; Start 3/30/19 at 16:30 ELOISA LAURA May 17, 2018 09:07
--- NOTE | 2018-05-17 12:37 | CONS ---
Assessment/Plan Assessment/Plan Assessment/Plan (Daily) 1. Malfunctioning gastrostomy tube. 2. Renal failure. Uremia better 3. Sepsis. Pneumonia 4. Hyponatremia. 5. Chronic obstructive pulmonary disease. 6. Bipolar. 7. Paroxysmal atrial fibrillation. 8. Critical care myopathy. 9. Anemia of chronic disease. 10. Diastolic failure. 11. Elevated alk phos with h/o hepatic venous congestion seen on abd CT in 2018 12. C. difficile colitis 13 profuse diarrhea, it is slowing down now. Will continue Questran 14. Respiratory failure patient is on vent PLAN: Continue vancomycin Increase feeding There is no evidence of GI bleeding and will start the patient on Pepcid We will stop PPI Question 4 g twice daily Consultation Date/Type/Reason Admit Date/Time May 06, 2018 at 17:38 Initial Consult Date 05/10/18 Requesting Provider: ROLAND GIRON MD Date/Time of Note DATE: 05/17/18 TIME: 12:36 24 HR Interval Summary Free Text/Dictation Only one episode of diarrhea this morning Constitutional: improved Exam/Review of Systems Exam Vitals Vital Signs Date Temp Pulse Resp B/P (MAP) Pulse Ox O2 O2 Flow FiO2 Time Delivery Rate 05/17/18 35 10:26 05/17/18 115 27 131/73 99 Mechanical 10:00 (92) Ventilator 05/17/18 98.8 08:00 Intake and Output 05/16/18 05/16/18 05/17/18 1515:00 23:00 07:00 IntakeIntake Total 1326.72 ml 1052.52 ml 1200 ml OutputOutput Total 540 ml 2640 ml 370 ml BalanceBalance 786.72 ml -1587.48 ml 830 ml Constitutional: alert Eyes: nl conjunctiva ENMT: nl external ears & nose Neck: non-tender Respiratory: clear to auscultation Gastrointestinal: soft, nl liver, spleen, non-tender Musculoskeletal: nl extremities to inspection, nl gait and stance Results Result Diagram: 05/16/18 0500 05/16/18 0500 Medications Medication Current Medications IV Flush (NS 10 ml) 10 ml PRN IV ; Start 05/06/18 at 20:30 Ascorbic Acid (Vitamin C) 500 mg DAILY GTB Last administered on 05/17/18at 08:21; Admin Dose 500 MG; Start 05/07/18 at 09:00 Albuterol/ Ipratropium (Duoneb) 3 ml Q2H RESP THERAPY PRN HHN SHORTNESS OF BREATH; Start 05/06/18 at 23:30 Lorazepam (Ativan Intensol) 0.5 mg Q6H PRN PEG ANXIETY; Start 05/06/18 at 23:30 Zinc Sulfate (Zinc Sulfate) 220 mg DAILY GTB Last administered on 05/17/18 08:21; Admin Dose 220 MG; Start 05/07/18 at 09:00 Ondansetron HCl (Zofran Tab) 4 mg Q6H PRN GTB NAUSEA AND/OR VOMITING; Start 05/07/18 at 00:15 Multivitamins (Multivitamin) 30 ml DAILY GTB Last administered on 05/17/18 08:21; Admin Dose 30 ML; Start 05/07/18 at 09:00 Epoetin Zen (Epogen (Esrd)) 20,000 units Tu@1700 SC Last administered on 05/12/18at 17:36; Admin Dose 20,000 UNITS; Start 05/12/18 at 17:00 Norepinephrine 250 ml @ 1.875 mls/ hr TITRATE IV Last administered on 05/08/18 13:33; Admin Dose 33.75 MLS/HR; Start 05/08/18 at 03:00 Citric Acid/ Sodium Citrate (Bicitra) 30 ml Q8 PO Last administered on 05/17/18 05:12; Admin Dose 30 ML; Start 05/09/18 at 08:00 Phenylephrine HCl 80 mg/Dextrose 250 ml @ 18.75 mls/ hr TITRATE IV Last administered on 05/15/18at 01:50; Admin Dose 5.63 MLS/HR; Start 05/09/18 at 12:30 Miscellaneous Information (Pending Santyl Order For Wound Care) This patient goldman... PRN PRN XX WOUND CARE; Start 05/09/18 at 17:00 Vancomycin HCl (Vancomycin Oral Syringe) 250 mg Q6 PO Last administered on 05/17/18at 05:12; Admin Dose 250 MG; Start 05/12/18 at 00:00 Metronidazole 100 ml @ 100 mls/hr Q8 IVPB Last administered on 05/17/18 05:13; Admin Dose 100 MLS/HR; Start 05/11/18 at 20:00 Collagenase (Santyl) 1 applic DAILY TOP Last administered on 05/17/18 08:23; Admin Dose 1 APPLIC; Start 05/13/18 at 09:00 Propofol 100 ml @ 2.64 mls/hr Q12H IV Last administered on 05/17/18 06:13; Admin Dose 15.84 MLS/HR; Start 05/12/18 at 18:30 Albuterol (Ventolin Hfa) 4 puff Q6H RESP THERAPY INH Last administered on 05/17/18 08:09; Admin Dose 4 PUFF; Start 05/12/18 at 20:00 Ipratropium [place] (Atrovent Hfa) 4 puff Q6H RESP THERAPY INH Last administered on 05/17/18 08:09; Admin Dose 4 PUFF; Start 05/12/18 at 20:00 Meropenem/Sodium Chloride 50 ml @ 100 mls/hr Q12 IVPB Last administered on 05/17/18 08:59; Admin Dose 100 MLS/HR; Start 05/13/18 at 21:00 Linezolid 300 ml @ 300 mls/hr Q12 IVPB Last administered on 05/17/18 08:21; Admin Dose 300 MLS/HR; Start 05/13/18 at 14:30 Cholestyramine Resin (Questran Light) 4 gm BID PO Last administered on 05/17/18 08:21; Admin Dose 4 GM; Start 05/14/18 at 21:00 Sodium Chloride 1,000 ml @ 50 mls/hr Q20H IV Last administered on 05/16/18 12:18; Admin Dose 50 MLS/HR; Start 05/15/18 at 08:00 Heparin Sodium (Porcine) (Heparin (1000 Units/ml)) 2,800 unit AFTER DIALYSIS CATHETER Last administered on 05/16/18 19:25; Admin Dose 2,800 UNIT; Start 05/16/18 at 16:30 QUINTEN UMAÑA MD May 17, 2018 12:37
[2018-05-17] MEDS ORDERED: POTASSIUM CHLORIDE 50 ML IVPB SCH ×2 (14:30→16:47)
[2018-05-17] MEDS ORDERED: MAGNESIUM SULFATE 2 GM/50 ML 50 ML IVPB ONE (14:30)
--- NOTE | 2018-05-17 14:33 | CONS ---
Consult Date/Type/Reason Admit Date/Time May 06, 2018 at 17:38 Initial Consult Date 05/10/18 Type of Consultation: CV Requesting Provider: ROLAND GIRON MD Date/Time of Note DATE: 05/17/18 TIME: 14:25 Subjective Interventional cardiology follow-up progress Subjective: Discussed with the staff and telemetry was reviewed. Patient has remained sinus rhythm but with episodes of heart block including AV dissociation . Has had frequent PACs. Patient remained intubated on the vent nonverbal Off of pressors but is still in ICU on the ventilator Objective: General: Status post intubation on the vent HEENT: NC/AT. pupils are equal. round. NECK: no stridor. CV: tachycardic systolic murmur; no gallop or rubs. PULM: no wheezing + rhonchi. GI: SOFT, NT, ND, no rebound or guarding Extremity: +B/L LE edema. no clubbing. neuro: Opens her eyes to verbal stimuli does not follow command Psych: calm rectal: deferred This extreme ice 2018 showed Mixed interstitial and alveolar infiltrates possibly representing edema, atypical pneumonia, or pneumonitis are mildly improved. Objective Vitals Vital Signs Date Temp Pulse Resp B/P (MAP) Pulse Ox O2 O2 Flow FiO2 Time Delivery Rate 05/17/18 111 24 108/57 100 13:00 (74) 05/17/18 99.0 Mechanical 12:00 Ventilator 05/17/18 35 10:26 Intake and Output 05/16/18 05/16/18 05/17/18 1515:00 23:00 07:00 IntakeIntake Total 1326.72 ml 1052.52 ml 1200 ml OutputOutput Total 540 ml 2640 ml 370 ml BalanceBalance 786.72 ml -1587.48 ml 830 ml Results/Medications Result Diagram: 05/16/18 0500 05/16/18 0500 Home Meds Reported Medications Zinc Sulfate* (Zinc Sulfate*) 220 Mg Tablet, 220 MG GTB DAILY, TAB START DATE 05/04/18, END DATE 06/03/18 05/06/18 Diclofenac Sodium* (Voltaren* Gel) 1% -100 Gm Gel, 2 GM TOP TID, #1 TUB 05/06/18 Ascorbic Acid (Vitamin C) 500 Mg Tab, 500 MG GTB DAILY, TAB 05/06/18 Quetiapine Fumarate* (Seroquel*) 100 Mg Tablet, 600 MG GTB HS, #30 TAB 05/06/18 Protein Supplement (Promod) 946 Ml Liquid, 30 ML GTB BID 05/06/18 Epoetin Zen (Procrit) 20,000 Unit/1 Ml Vial, 50931 UNIT IJ Q TUE for FOR ANEMIA OF CKD, VIAL HOLD IFHGB IS EQUAL OR GREATER THAN 11 05/06/18 Ondansetron Hcl* (Ondansetron Hcl* Liq) 4 Mg/5 Ml Solution, 4 MG GTB Q6H PRN for NAUSEA AND/OR VOMITING, ML 05/06/18 Multivitamin with Minerals (Multivitamins with Minerals) 1 Each Tablet, 1 EACH GTB QAM, TAB 05/06/18 Metoprolol Tartrate* (Lopressor*) 25 Mg Tab, 25 MG GTB BID, #60 TAB HOLD FOR SBP<110 OR HR<60 05/06/18 Lorazepam* (Ativan* Intensol) 2 Mg/Ml Soln, 0.5 MG IV* Q6H PRN for ANXIETY, #1 BOTTLE START DATE 04/02/18, END DATE 06/01/18 05/06/18 Lidocaine (Lidocaine) 1 Each Adh..patch, 1 EACH TP Q12H 5% 05/06/18 Ipratropium-Albuterol (Ipratropium-Albuterol) 0.5-3 Mg/3 Ml Ampul.neb, 3 ML INHALATION Q6 PRN for BRONCHOSPASM, #30 VIAL 05/06/18 Ipratropium-Albuterol (Ipratropium-Albuterol) 0.5-3 Mg/3 Ml Ampul.neb, 3 ML INHALATION Q2H PRN for BRONCHOSPASM, #30 VIAL 05/06/18 Famotidine* (Famotidine*) 20 Mg Tablet, 20 MG GTB BID, #60 TAB 05/06/18 Valproic Acid* (Depakene*) 250 Mg/5 Ml Udc Syrup, 100 MG GTB QHS, ML 05/06/18 Clonidine Hcl* (Clonidine Hcl*) 0.1 Mg Tab, 0.1 MG GTB Q6 PRN for NEEDED, TAB FOR SBP>160 OR DBP>90 05/06/18 Aspirin* (Aspirin* Chew) 81 Mg Tab.chew, 81 MG GTB DAILY, TAB.CHEW 05/06/18 Medications Current Medications IV Flush (NS 10 ml) 10 ml PRN IV ; Start 05/06/18 at 20:30 Ascorbic Acid (Vitamin C) 500 mg DAILY GTB Last administered on 05/17/18 08:21; Admin Dose 500 MG; Start 05/07/18 at 09:00 Albuterol/ Ipratropium (Duoneb) 3 ml Q2H RESP THERAPY PRN HHN SHORTNESS OF BREATH; Start 05/06/18 at 23:30 Lorazepam (Ativan Intensol) 0.5 mg Q6H PRN PEG ANXIETY; Start 05/06/18 at 23:30 Zinc Sulfate (Zinc Sulfate) 220 mg DAILY GTB Last administered on 05/17/18 08:21; Admin Dose 220 MG; Start 05/07/18 at 09:00 Ondansetron HCl (Zofran Tab) 4 mg Q6H PRN GTB NAUSEA AND/OR VOMITING; Start 05/07/18 at 00:15 Multivitamins (Multivitamin) 30 ml DAILY GTB Last administered on 05/17/18 08:21; Admin Dose 30 ML; Start 05/07/18 at 09:00 Epoetin Zen (Epogen (Esrd)) 20,000 units Tu@1700 SC Last administered on 05/12/18at 17:36; Admin Dose 20,000 UNITS; Start 05/12/18 at 17:00 Norepinephrine 250 ml @ 1.875 mls/ hr TITRATE IV Last administered on 9at 13:33; Admin Dose 33.75 MLS/HR; Start 05/08/18 at 03:00 Citric Acid/ Sodium Citrate (Bicitra) 30 ml Q8 PO Last administered on 05/17/18 13:06; Admin Dose 30 ML; Start 05/09/18 at 08:00 Phenylephrine HCl 80 mg/Dextrose 250 ml @ 18.75 mls/ hr TITRATE IV Last administered on 05/15/18 01:50; Admin Dose 5.63 MLS/HR; Start 05/09/18 at 12:30 Miscellaneous Information (Pending [facility] Order For Wound Care) This patient goldman... PRN PRN XX WOUND CARE; Start 05/09/18 at 17:00 Vancomycin HCl (Vancomycin Oral Syringe) 250 mg Q6 PO Last administered on 05/17/18 13:06; Admin Dose 250 MG; Start 05/12/18 at 00:00 Metronidazole 100 ml @ 100 mls/hr Q8 IVPB Last administered on 05/17/18 13:06; Admin Dose 100 MLS/HR; Start 05/11/18 at 20:00 Collagenase (Santyl) 1 applic DAILY TOP Last administered on 05/17/18 08:23; Admin Dose 1 APPLIC; Start 05/13/18 at 09:00 Propofol 100 ml @ 2.64 mls/hr Q12H IV Last administered on 05/17/18 13:38; Admin Dose 15.84 MLS/HR; Start 05/12/18 at 18:30 Albuterol (Ventolin Hfa) 4 puff Q6H RESP THERAPY INH Last administered on 05/17/18 08:09; Admin Dose 4 PUFF; Start 05/12/18 at 20:00 Ipratropium [place] (Atrovent Hfa) 4 puff Q6H RESP THERAPY INH Last a dministered on 05/17/18 08:09; Admin Dose 4 PUFF; Start 05/12/18 at 20:00 Meropenem/Sodium Chloride 50 ml @ 100 mls/hr Q12 IVPB Last administered on 05/17/18 08:59; Admin Dose 100 MLS/HR; Start 05/13/18 at 21:00 Linezolid 300 ml @ 300 mls/hr Q12 IVPB Last administered on 05/17/18 08:21; Admin Dose 300 MLS/HR; Start 05/13/18 at 14:30 Cholestyramine Resin (Questran Light) 4 gm BID PO Last administered on 05/17/18 08:21; Admin Dose 4 GM; Start 05/14/18 at 21:00 Sodium Chloride 1,000 ml @ 50 mls/hr Q20H IV Last administered on 05/16/18 12:18; Admin Dose 50 MLS/HR; Start 05/15/18 at 08:00 Heparin Sodium (Porcine) (Heparin (1000 Units/ml)) 2,800 unit AFTER DIALYSIS CATHETER Last administered on 05/16/18 19:25; Admin Dose 2,800 UNIT; Start 05/16/18 at 16:30 Assessment/Plan Hospital Course (Demo Recall) Septic as well as hemorrhagic shock Hypotension : Currently off of IV pressor Acute respiratory failure status post intubation: Currently ventilator dependent Acute blood loss anemia History of chronic respiratory failure status post decannulation with preserved ejection fraction echocardiogram 05/10/2018 Paroxysmal atrial fibrillation, currently sinus rhythm Acute kidney injury Recommendation: -Vent management as per pulmonary -Fluid management as per renal, -Hold all antihypertensives and nephrotoxic medications -Antibiotics as per infectious disease Correct electrolyte as needed including potassium magnesium Continue with ICU care Thank you for his referral. We will continue to follow along with you DAVID LOPES MD [facility] DAVID LOPES MD May 17, 2018 14:33
--- NOTE | 2018-05-17 15:23 | PN ---
Date/Time of Note Date/Time of Note DATE: 05/17/18 TIME: 15:14 Assessment/Plan VTE Prophylaxis Risk score (from [facility] [place])>0 risk: 3 SCD applied (from [facility] [place]): No SCD contraindicated: other Pharmacological prophylaxis: other Pharm contraindication: other Lines/Catheters IV Catheter Type (from [facility] ovidio Urinary Cath still in place: Yes Reason Cath still needed: urinary retention Assessment/Plan Assessment/Plan - Hypokalemia as of 05/16; will do stat labs-fu CMP -Septic shock secondary to urinary tract infection, anterior neck soft tissue infection, and C. difficile colitis. Continue pressors for hemodynamic support, IV fluids, antibiotics per ID. Dr. Black is following in infection disease consultation. -Acute respiratory failure requiring intubation and ventilatory support. Dr. Lambert is following in pulmonology consultation. -Acute kidney injury on chronic kidney disease. Plan for initiating hemodialysis. Dr. Mckeon is following in nephrology consultation. -Metabolic acidosis, resolved. -Acute diastolic congestive heart failure. Dr. Scanlon is following in cardiology consultation. -Paroxysmal atrial fibrillation, remains sinus rhythm -COPD -Dysphagia with PEG. -G-tube mild malfunction, changed by GI Dr. Carolina is following in gastroenterology consultation. -Obesity Critical care time spent is 30 minutes. Further recommendations based on clinical course. Plan of care discussed with Dr. Eisenberg. Result Diagram: 05/16/18 0500 05/16/18 0500 Subjective 24 Hr Interval Summary Free Text/Dictation CPAP trail today;failed nad dw staff Subjective hx not possible: pt non-verbal Constitutional: requiring IVF, requiring O2 Exam/Review of Systems Exam Vitals Vital Signs Date Temp Pulse Resp B/P (MAP) Pulse Ox O2 O2 Flow FiO2 Time Delivery Rate 05/17/18 108 25 131/64 99 15:00 (86) 05/17/18 99.0 Mechanical 12:00 Ventilator 05/17/18 35 10:26 Intake and Output 05/16/18 05/16/18 05/17/18 1515:00 23:00 07:00 IntakeIntake Total 1326.72 ml 1052.52 ml 1200 ml OutputOutput Total 540 ml 2640 ml 370 ml BalanceBalance 786.72 ml -1587.48 ml 830 ml Constitutional: alert, well developed, non-verbal, frail Psych: nl mood/affect Head: atraumatic Eyes: nl lids, nl sclera ENMT: nl external ears & nose Neck: non-tender, other (ET ) Respiratory: clear to auscultation Cardiovascular: nl pulses, other (S1S2) Gastrointestinal: soft Musculoskeletal: muscle weakness, range of motion Extremities: normal pulses, edema Neurological: other (OPENS EYES AT TIMES) Medications Medication Current Medications IV Flush (NS 10 ml) 10 ml PRN IV ; Start 05/06/18 at 20:30 Ascorbic Acid (Vitamin C) 500 mg DAILY GTB Last administered on 05/17/18 08:21; Admin Dose 500 MG; Start 05/07/18 at 09:00 Albuterol/ Ipratropium (Duoneb) 3 ml Q2H RESP THERAPY PRN HHN SHORTNESS OF BREATH; Start 05/06/18 at 23:30 Lorazepam (Ativan Intensol) 0.5 mg Q6H PRN PEG ANXIETY; Start 05/06/18 at 23:30 Zinc Sulfate (Zinc Sulfate) 220 mg DAILY GTB Last administered on 05/17/18 08:21; Admin Dose 220 MG; Start 05/07/18 at 09:00 Ondansetron HCl (Zofran Tab) 4 mg Q6H PRN GTB NAUSEA AND/OR VOMITING; Start 05/07/18 at 00:15 Multivitamins (Multivitamin) 30 ml DAILY GTB Last administered on 05/17/18 08:21; Admin Dose 30 ML; Start 05/07/18 at 09:00 Epoetin Zen (Epogen (Esrd)) 20,000 units Tu@1700 SC Last administered on 05/12/18 17:36; Admin Dose 20,000 UNITS; Start 05/12/18 at 17:00 Norepinephrine 250 ml @ 1.875 mls/ hr TITRATE IV Last administered on 05/08/18 13:33; Admin Dose 33.75 MLS/HR; Start 05/08/18 at 03:00 Citric Acid/ Sodium Citrate (Bicitra) 30 ml Q8 PO Last administered on 05/17/18 13:06; Admin Dose 30 ML; Start 05/09/18 at 08:00 Phenylephrine HCl 80 mg/Dextrose 250 ml @ 18.75 mls/ hr TITRATE IV Last administered on 05/15/18 01:50; Admin Dose 5.63 MLS/HR; Start 05/09/18 at 12:30 Miscellaneous Information (Pending Santyl Order For Wound Care) This patient goldman... PRN PRN XX WOUND CARE; Start 05/09/18 at 17:00 Vancomycin HCl (Vancomycin Oral Syringe) 250 mg Q6 PO Last administered on 05/17/18 13:06; Admin Dose 250 MG; Start 05/12/18 at 00:00 Metronidazole 100 ml @ 100 mls/hr Q8 IVPB Last administered on 05/17/18 13:06; Admin Dose 100 MLS/HR; Start 05/11/18 at 20:00 Collagenase (Santyl) 1 applic DAILY TOP Last administered on 05/17/18 08:23; Admin Dose 1 APPLIC; Start 05/13/18 at 09:00 Propofol 100 ml @ 2.64 mls/hr Q12H IV Last administered on 05/17/18 13:38; Admin Dose 15.84 MLS/HR; Start 05/12/18 at 18:30 Albuterol (Ventolin Hfa) 4 puff Q6H RESP THERAPY INH Last administered on 05/17/18 14:28; Admin Dose 4 PUFF; Start 05/12/18 at 20:00 Ipratropium [place] (Atrovent Hfa) 4 puff Q6H RESP THERAPY INH Last administered on 05/17/18 14:28; Admin Dose 4 PUFF; Start 05/12/18 at 20:00 Meropenem/Sodium Chloride 50 ml @ 100 mls/hr Q12 IVPB Last administered on 05/17/18 08:59; Admin Dose 100 MLS/HR; Start 05/13/18 at 21:00 Linezolid 300 ml @ 300 mls/hr Q12 IVPB Last administered on 05/17/18 08:21; Admin Dose 300 MLS/HR; Start 05/13/18 at 14:30 Cholestyramine Resin (Questran Light) 4 gm BID PO Last administered on 05/17 08:21; Admin Dose 4 GM; Start 05/14/18 at 21:00 Sodium Chloride 1,000 ml @ 50 mls/hr Q20H IV Last administered on 05/16/18 12:18; Admin Dose 50 MLS/HR; Start 05/15/18 at 08:00 Heparin Sodium (Porcine) (Heparin (1000 Units/ml)) 2,800 unit AFTER DIALYSIS CATHETER Last administered on 05/16/18at 19:25; Admin Dose 2,800 UNIT; Start 05/16/18 at 16:30 Potassium Chloride 50 ml @ 50 mls/hr Q1H IVPB ; Start 05/17/18 at 14:30; Stop 05/17/18 at 17:29 Magnesium Sulfate 50 ml @ 25 mls/hr ONCE ONCE IVPB ; Start 05/17/18 at 14:30; Stop 05/17/18 at 16:29 KERON MORAN May 17, 2018 15:23
[2018-05-17] MEDS: SOD CHLORIDE 0.9% 1,000 ML IV SCH (20:45)
[2018-05-17] MEDS ORDERED: POTASSIUM CHLORIDE 100 ML IVPB ONE (21:00)
--- NOTE | 2018-05-17 21:24 | CONS ---
Assessment/Plan Assessment/Plan Hospital Course (Demo Recall) # sepsis, SIRS, pulmonary - septic shock due to pneumonia and C diff colitis. 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 colonization of the airway by pseudomonas and ESBL+kleb siella - h/o possible, recurrent HCAP due to pseudomonas and ESBL+klebsiella - h/o recurrent HCAP due to MRSA and Enterobacter (culture of tracheal aspirate on 07/16/2017 that was collected at [facility]) . Pt took vancomycin and ceftazidime - h/o acute respiratory distress post-thoracentesis, resolved - h/o thoracentesis on 07/18/2017, transudative (protein <2, LDH 279) - h/o bleeding from the trach site - h/o septic shock due to pneumonia, ARDS, bacteremia, fungemia - h/o ARDS - h/o smoking - COPD - ILD # Cardiac - PAF, currently sinus tachycardia # GI - C diff colitis, diagnosed on 05/11/2018 - h/o intermittent diarrhea, Pt had multiple negative C. diff tests at [facility] at OSH in the past - dysphagia - h/o PEG placement 06/13/2018 - protein calorie malnutrition - h/o coffee ground emesis/UGIB 12/23/2017 due to deep ulceration of distal esophagus and gastritis on EGD 12/26/2017. No e/o H. pylori - h/o possible appendicitis on CT on 11/22/2017, Pt took ertapenem (11/24/2017-) - h/o extensive adhesions lower abdominal and pelvis between small bowel to each other and to colon and to abdominal wall, anterior pelvic wall chronic abscess secondary to probably an old perforated diverticulitis, torsion of small bowel around these dense adhesion causing multiple obstructive points - h/o laparoscopic exploration and extensive lysis of adhesions and drainage of anterior pelvic wall abscess 09/16/2017. Cultures were negative, no e/o malignancy. Pt took pip/tazo (09/16/2017-09/26/2017) - h/o partial obstruction mid jejunum in L anterior central pelvis with suggestion of a 3 cm soft tissue mass on CT 08/28/2017 - h/o internal stomal deep ulcer behind the internal bumper, gastritis and esophagitis, Rodriguez's cannot be ruled out, per EGD with biopsy 07/23/2017 - h/o GIB s/p flex sig showed polyp; stool OB negative on 06/29/17 - h/o stool OB positive status - h/o SBO and ileus due to pain meds - h/o EGD and exchange of PEG on 09/01/2017 - h/o mildly elevated CEA # renal/ - recurrent NATHAN on CKD - started on HD on 05/15/2018, via Kem in R groin - 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 JADE Joshi requested that Claudia at [facility] test his strain of CRE against colistin, Avycaz, Zerbaxa, and Vabomere on 05/07/2018 - Hyponatremia - Hyperkalemia, now hypokalemia - Metabolic acidosis - adrenal insufficiency - h/o vaginal bleed - h/o colonization of urinary tract by ESBL+klebsiella, VRE - h/o recurrent, symptomatic UTI due to carbapenem-resistant kleb (MDR strain) per urine culture 10/04/17, 10/09/17, 10/21/2017, P took colistin (10/09/2017- 10/15/2017), fosfomycin for carbapenemase-producing klebsiella and VRE on 10/25/2017 and 10/28/2017 - h/o funguria - h/o urinary retention # fungemia, bacteremia - h/o bacteremia due to coag negative Staph, probable contaminant as her WBC level improved initially without antibiotic - 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 improved. Probable manifestation of endocarditis. Pt declined MRI on 08/06/2017 - h/o infection of R toes due to pseudomonas. coagulase negative Staph likely a colonizer. resolved - h/o intertrigo of the groin, resolved with nystatin powder - h/o scabies, locally crusted lesion over L scapula, s/p permethrin cream and pGT ivermectin on 08/11/2017, 08/12/2017, 08/19/2017. Repeat skin scraping on 08/21/2017 was negative for scabies # psych, neuro - acute toxic metabolic encephalopathy - decreased hearing b/l - h/o critical illness polyneuropathy - anxiety/depression, bipolar d/o, seen by Psychiatry in the past - chronic pain syndrome - medical non-compliance: she would refuse her medications, treatment and straight catheterization at times # hematological, vascular - chronic anemia requiring blood transfusion intermittently - Macrocytic anemia - 3.1 cm AAA on imaging - PVD Recommendations: - pending: Blood culture x2 (05/13/2018 - NGTD) - complete 5 day course of linezolid (05/13/2018-) today - continue renally dosed meropenem for HCAP (05/13/2018-); no IV vancomycin due to acute on chronic renal disease. Will monitor CBC - continue pGT vancomycin (05/11/2018-) and IV metronidazole (05/11/2018) for C diff colitis Management d/w [employer]AY[facility] Angel and with Dr. Doyle Critical care time spent: 30 min Consultation Date/Type/Reason Admit Date/Time May 06, 2018 at 17:38 Initial Consult Date 05/07/18 Type of Consult Infectious Disease Requesting Provider: ROLAND GIRON MD Date/Time of Note DATE: 05/17/18 TIME: 21:24 24 HR Interval Summary Free Text/Dictation Remains afebrile. Tracheal aspirate cx negative. Failed CPAP trial this AM. Diarrhea is improving. Just had one episode of loose stool this evening per d/w nursing. Chart reviewed. Hypokalemic and potassium was repleted. Hgb down to 7.9. Subjective hx not possible: pt non-verbal, pt critical status Exam/Review of Systems Exam Vitals Vital Signs Date Temp Pulse Resp B/P (MAP) Pulse Ox O2 O2 Flow FiO2 Time Delivery Rate 05/17/18 106 26 129/68 100 Mechanical 21:00 (88) Ventilator 05/17/18 35 20:34 05/17/18 98.4 20:00 Intake and Output 05/16/18 05/16/18 05/17/18 1515:00 23:00 07:00 IntakeIntake Total 1326.72 ml 1052.52 ml 1200 ml OutputOutput Total 540 ml 2640 ml 370 ml BalanceBalance 786.72 ml -1587.48 ml 830 ml Exam Constitutional: well developed, non-verbal, frail, obese, other (chronically debilitated, orally intubated and sedated) Head: normocephalic, atraumatic Eyes: nl conjunctiva, nl lids ENMT: nl external ears & nose, intubated, other (orally intubated) Neck: other (old trach site with with dressing dry and intact) Respiratory: diminished breath sounds, other (on ventilator support, AC, FiO2 40%) Cardiovascular: regular rate and rhythm, nl pulses Gastrointestinal: soft, non-tender, bowel sounds; No distended Genitourinary - Female: other (Garza in place with yellow urine; HD catheter in R groin c/d/i) Musculoskeletal: other (eschar on toes; bilateral foot drop) Extremities: edema (all four extremities) Neurological: other (sedated with Diprivan but opens eyes with verbal and tactile stimuli, +tracking, and falls easily back to sleep; no commands) Skin: nl turgor, dry, other (wounds- nurses notes and photos reviewed in chart) Results Result Diagram: 05/17/18 1526 05/17/18 1526 Results 24hrs Laboratory Tests Test 05/17/18 15:26 White Blood Count 7.7 Red Blood Count 2.39 L Hemoglobin 7.9 L Hematocrit 25.8 L Mean Corpuscular Volume 107.9 H Mean Corpuscular Hemoglobin 33.1 H Mean Corpuscular Hemoglobin Concent 30.6 L Red Cell Distribution Width 17.2 H Platelet Count 147 Mean Platelet Volume 9.3 Immature Granulocytes % 0.400 Neutrophils % 83.2 H Lymphocytes % 10.9 L Monocytes % 3.6 Eosinophils % 1.8 Basophils % 0.1 Nucleated Red Blood Cells % 0.0 Immature Granulocytes # 0.030 Neutrophils # 6.4 Lymphocytes # 0.8 Monocytes # 0.3 Eosinophils # 0.1 Basophils # 0.0 Nucleated Red Blood Cells # 0.0 Sodium Level 139 Potassium Level 2.8 *L Chloride Level 102 Carbon Dioxide Level 30 Anion Gap 7 Blood Urea Nitrogen 53 #H Creatinine 1.31 H Est Glomerular Filtrat Rate mL/min Glucose Level 95 Calcium Level 7.9 L Total Bilirubin 0.1 L Direct Bilirubin 0.00 Indirect Bilirubin 0.1 Aspartate Amino Transf (AST/SGOT) 16 Alanine Aminotransferase (ALT/SGPT) 18 Alkaline Phosphatase 96 Total Protein 4.9 L Albumin 2.0 L Globulin 2.90 Albumin/Globulin Ratio 0.68 Imaging Imaging CXR 05/17/2018: No significant change in predominantly diffuse mixed interstitial opacities, representing edema/ARDS versus pneumonia. Medications Medication Current Medications IV Flush (NS 10 ml) 10 ml PRN IV ; Start 05/06/18 at 20:30 Ascorbic Acid (Vitamin C) 500 mg DAILY GTB Last administered on 05/17/18at 08:21; Admin Dose 500 MG; Start 05/07/18 at 09:00 Albuterol/ Ipratropium (Duoneb) 3 ml Q2H RESP THERAPY PRN HHN SHORTNESS OF BREATH; Start 05/06/18 at 23:30 Lorazepam (Ativan Intensol) 0.5 mg Q6H PRN PEG ANXIETY; Start 05/06/18 at 23:30 Zinc Sulfate (Zinc Sulfate) 220 mg DAILY GTB Last administered on 05/17/18at 08:21; Admin Dose 220 MG; Start 05/07/18 at 09:00 Ondansetron HCl (Zofran Tab) 4 mg Q6H PRN GTB NAUSEA AND/OR VOMITING; Start 05/07/18 at 00:15 Multivitamins (Multivitamin) 30 ml DAILY GTB Last administered on 05/17/18 08:21; Admin Dose 30 ML; Start 05/07/18 at 09:00 Epoetin Zen (Epogen (Esrd)) 20,000 units Tu@1700 SC Last administered on 05/12/18 17:36; Admin Dose 20,000 UNITS; Start 05/12/18 at 17:00 Norepinephrine 250 ml @ 1.875 mls/ hr TITRATE IV Last administered on 05/08/18 13:33; Admin Dose 33.75 MLS/HR; Start 05/08/18 at 03:00 Citric Acid/ Sodium Citrate (Bicitra) 30 ml Q8 PO Last administered on 05/17/18 13:06; Admin Dose 30 ML; Start 05/09/18 at 08:00 Phenylephrine HCl 80 mg/Dextrose 250 ml @ 18.75 mls/ hr TITRATE IV Last administered on 05/15/18 01:50; Admin Dose 5.63 MLS/HR; Start 05/09/18 at 12:30 Miscellaneous Information (Pending Santyl Order For Wound Care) This patient goldman... PRN PRN XX WOUND CARE; Start 05/09/18 at 17:00 Vancomycin HCl (Vancomycin Oral Syringe) 250 mg Q6 PO Last administered on 04/19 17:02; Admin Dose 250 MG; Start 05/12/18 at 00:00 Metronidazole 100 ml @ 100 mls/hr Q8 IVPB Last administered on 05/17/18 13:06; Admin Dose 100 MLS/HR; Start 05/11/18 at 20:00 Collagenase (Santyl) 1 applic DAILY TOP Last administered on 05/17/18 08:23; Admin Dose 1 APPLIC; Start 05/13/18 at 09:00 Propofol 100 ml @ 2.64 mls/hr Q12H IV Last administered on 05/17/18 20:45; Admin Dose 15.84 MLS/HR; Start 05/12/18 at 18:30 Albuterol (Ventolin Hfa) 4 puff Q6H RESP THERAPY INH Last administered on 05/17/18 14:28; Admin Dose 4 PUFF; Start 05/12/18 at 20:00 Ipratropium [place] (Atrovent Hfa) 4 puff Q6H RESP THERAPY INH Last administered on 05/17/18 14:28; Admin Dose 4 PUFF; Start 05/12/18 at 20:00 Meropenem/Sodium Chloride 50 ml @ 100 mls/hr Q12 IVPB Last administered on 05/17/18 08:59; Admin Dose 100 MLS/HR; Start 05/13/18 at 21:00 Linezolid 300 ml @ 300 mls/hr Q12 IVPB Last administered on 05/17/18 08:21; Admin Dose 300 MLS/HR; Start 05/13/18 at 14:30 Cholestyramine Resin (Questran Light) 4 gm BID PO Last administered on 05/17/18 08:21; Admin Dose 4 GM; Start 05/14/18 at 21:00 Sodium Chloride 1,000 ml @ 50 mls/hr Q20H IV Last administered on 05/17/18 20:45; Admin Dose 50 MLS/HR; Start 05/15/18 at 08:00 Heparin Sodium (Porcine) (Heparin (1000 Units/ml)) 2,800 unit AFTER DIALYSIS CATHETER Last administered on 05/16/18 19:25; Admin Dose 2,800 UNIT; Start 05/16/18 at 16:30 Potassium Chloride 100 ml @ 50 mls/hr ONCE ONCE IVPB ; Start 05/17/18 at 21:00 ; Stop 05/17/18 at 22:59 LAURA JOSHI NP May 17, 2018 21:24
[2018-05-18] VITALS (43 sets, daily range): BP systolic 104–149; BP diastolic 55–89; PULSE 95–114; RESP 0–27
[2018-05-18] MEDS: PROPOFOL 100 ML IV SCH ×4 (04:11→21:50)
[2018-05-18] MEDS: VANCOMYCIN HCL 250 MG/5ML POSYG PO SCH ×3 (06:22→17:40)
[2018-05-18] MEDS: CITRIC ACID/NA CITRATE 30 ML CUP PO SCH ×3 (06:22→21:02)
[2018-05-18] MEDS: metroNIDAZOLE 500 MG/NS (PMX) 100 ML IVPB SCH ×3 (06:22→21:02)
--- NOTE | 2018-05-18 06:49 | CONS ---
Assessment/Plan Assessment/Plan Hospital Course (Demo Recall) 73 yo female Interval hx: Tolerating tube feeds at 35cc/hr. Hgb 7.2, has been trending down. No signs of GI bleeding per RN. Two bm overnight, brown and thicker. Propofol gtt 1. Malfunctioning gastrostomy tube. 2. Renal failure.- on HD 3. Sepsis. -with mx organisms at trach site 4. Chronic obstructive pulmonary disease. 5. Bipolar. 6. Paroxysmal atrial fibrillation. 7. Anemia of chronic disease. 8. CHF 9. Elevated alk phos with h/o hepatic venous congestion seen on abd CT in 2018 10. Respiratory failure 11. Diarrhea improving with questran 12. UTI with mx organisms PLAN: Monitor residuals q 4 hours Continue pepcid and questran and vanco PO Monitor for signs of GI bleeding Pt examined and plan of care discussed with Dr Carolina Consultation Date/Type/Reason Admit Date/Time May 06, 2018 at 17:38 Initial Consult Date 05/10/18 Requesting Provider: ROLAND GIRON MD Date/Time of Note DATE: 05/18/18 TIME: 06:40 Exam/Review of Systems Exam Vitals Vital Signs Date Temp Pulse Resp B/P (MAP) Pulse Ox O2 O2 Flow FiO2 Time Delivery Rate 05/18/18 110 25 95 35 05:36 05/18/18 98.4 135/70 Mechanical 04:00 (91) Ventilator Intake and Output 05/17/18 05/17/18 05/18/18 1515:00 23:00 07:00 IntakeIntake Total 1270 ml 1334.20 ml 439.84 ml OutputOutput Total 450 ml 300 ml 280 ml BalanceBalance 820 ml 1034.20 ml 159.84 ml Constitutional: alert Head: normocephalic Eyes: PERRL ENMT: intubated Respiratory: diminished breath sounds Cardiovascular: regular rate and rhythm Gastrointestinal: soft, non-tender, other (g tube site clean and dry) Extremities: edema Neurological: other (propofol gtt) Results Result Diagram: 05/18/18 0430 05/18/18 0430 Results 24hrs Laboratory Tests Test 05/17/18 15:26 05/17/18 22:05 05/18/18 04:30 White Blood Count 7.7 7.8 Red Blood Count 2.39 L 2.07 L Hemoglobin 7.9 L 7.2 L Hematocrit 25.8 L 22.3 L Mean Corpuscular Volume 107.9 H 107.7 H Mean Corpuscular Hemoglobin 33.1 H 34.8 H Mean Corpuscular Hemoglobin Concent 30.6 L 32.3 Red Cell Distribution Width 17.2 H 17.2 H Platelet Count 147 149 Mean Platelet Volume 9.3 9.7 Immature Granulocytes % 0.400 0.400 Neutrophils % 83.2 H Lymphocytes % 10.9 L Monocytes % 3.6 Eosinophils % 1.8 Basophils % 0.1 Nucleated Red Blood Cells % 0.0 0.0 Immature Granulocytes # 0.030 0.030 Neutrophils # 6.4 Lymphocytes # 0.8 Monocytes # 0.3 Eosinophils # 0.1 Basophils # 0.0 Nucleated Red Blood Cells # 0.0 Sodium Level 139 138 139 Potassium Level 2.8 *L 3.0 L 3.1 L Chloride Level 102 100 105 Carbon Dioxide Level 30 30 25 Anion Gap 7 8 9 Blood Urea Nitrogen 53 #H 53 H 50 H Creatinine 1.31 H 1.30 H 1.17 H Est Glomerular Filtrat Rate mL/min Glucose Level 95 109 77 Calcium Level 7.9 L 7.7 L 7.1 L Total Bilirubin 0.1 L 0.1 L Direct Bilirubin 0.00 0.00 Indirect Bilirubin 0.1 0.1 Aspartate Amino Transf (AST/SGOT) 16 15 Alanine Aminotransferase (ALT/SGPT) 18 20 Alkaline Phosphatase 96 81 Total Protein 4.9 L 4.6 L Albumin 2.0 L 1.8 L Globulin 2.90 2.80 Albumin/Globulin Ratio 0.68 0.64 Magnesium Level 1.3 L Medications Medication Current Medications IV Flush (NS 10 ml) 10 ml PRN IV ; Start 05/06/18 at 20:30 Ascorbic Acid (Vitamin C) 500 mg DAILY GTB Last administered on 05/17/18at 08:21; Admin Dose 500 MG; Start 05/07/18 at 09:00 Albuterol/ Ipratropium (Duoneb) 3 ml Q2H RESP THERAPY PRN HHN SHORTNESS OF BREATH; Start 05/06/18 at 23:30 Lorazepam (Ativan Intensol) 0.5 mg Q6H PRN PEG ANXIETY; Start 05/06/18 at 23:30 Zinc Sulfate (Zinc Sulfate) 220 mg DAILY GTB Last administered on 05/17/18 08:21; Admin Dose 220 MG; Start 05/07/18 at 09:00 Ondansetron HCl (Zofran Tab) 4 mg Q6H PRN GTB NAUSEA AND/OR VOMITING; Start 05/07/18 at 00:15 Multivitamins (Multivitamin) 30 ml DAILY GTB Last administered on 05/17/18 08:21; Admin Dose 30 ML; Start 05/07/18 at 09:00 Epoetin Zen (Epogen (Esrd)) 20,000 units Tu@1700 SC Last administered on 05/12/18 17:36; Admin Dose 20,000 UNITS; Start 05/12/18 at 17:00 Norepinephrine 250 ml @ 1.875 mls/ hr TITRATE IV Last administered on 05/08/18 13:33; Admin Dose 33.75 MLS/HR; Start 05/08/18 at 03:00 Citric Acid/ Sodium Citrate (Bicitra) 30 ml Q8 PO Last administered on 05/18/18 06:22; Admin Dose 30 ML; Start 05/09/18 at 08:00 Phenylephrine HCl 80 mg/Dextrose 250 ml @ 18.75 mls/ hr TITRATE IV Last administered on 05/15/18 01:50; Admin Dose 5.63 MLS/HR; Start 05/09/18 at 12:30 Miscellaneous Information (Pending Santyl Order For Wound Care) This patient goldman... PRN PRN XX WOUND CARE; Start 05/09/18 at 17:00 Vancomycin HCl (Vancomycin Oral Syringe) 250 mg Q6 PO Last administered on 05/18/18 06:22; Admin Dose 250 MG; Start 05/12/18 at 00:00 Metronidazole 100 ml @ 100 mls/hr Q8 IVPB Last administered on 05/18/18 06:22; Admin Dose 100 MLS/HR; Start 05/11/18 at 20:00 Collagenase (Santyl) 1 applic DAILY TOP Last administered on 05/17/18 08:23; Admin Dose 1 APPLIC; Start 05/13/18 at 09:00 Propofol 100 ml @ 2.64 mls/hr Q12H IV Last administered on 05/18/18 04:11; Admin Dose 15.84 MLS/HR; Start 05/12/18 at 18:30 Albuterol (Ventolin Hfa) 4 puff Q6H RESP THERAPY INH Last administered on 05/17/18 14:28; Admin Dose 4 PUFF; Start 05/12/18 at 20:00 Ipratropium [place] (Atrovent Hfa) 4 puff Q6H RESP THERAPY INH Last administered on 05/17/18 14:28; Admin Dose 4 PUFF; Start 05/12/18 at 20:00 Meropenem/Sodium Chloride 50 ml @ 100 mls/hr Q12 IVPB Last administered on 05/17/18 21:23; Admin Dose 100 MLS/HR; Start 05/13/18 at 21:00 Cholestyramine Resin (Questran Light) 4 gm BID PO Last administered on 21:23; Admin Dose 4 GM; Start 05/14/18 at 21:00 Sodium Chloride 1,000 ml @ 50 mls/hr Q20H IV Last administered on 05/17/18 20:45; Admin Dose 50 MLS/HR; Start 05/15/18 at 08:00 Heparin Sodium (Porcine) (Heparin (1000 Units/ml)) 2,800 unit AFTER DIALYSIS CATHETER Last administered on 05/16/18 19:25; Admin Dose 2,800 UNIT; Start 05/16/18 at 16:30 SHAHEEN GAMBOA May 18, 2018 06:49
[2018-05-18] MEDS ORDERED: MAGNESIUM SULFATE 2 GM/50 ML 50 ML IVPB ONE (08:00)
[2018-05-18] MEDS ORDERED: POTASSIUM CHLORIDE 20 MEQ POWDER FOR ORAL SOLN GTB ONE (08:00)
[2018-05-18] MEDS: IPRATROPIUM (HFA) 12.9 GM INHALER INH SCH ×5 (09:05→19:42)
[2018-05-18] MEDS: ALBUTEROL HFA 8 GM INHALER INH SCH ×5 (09:06→19:42)
--- NOTE | 2018-05-18 09:25 | PN ---
DATE: 05/18/2018 SUBJECTIVE: The patient is currently off pressor support. The patient is on full ventilatory suppor t. The patient's urinary output has been improving. No other acute events noted. No hemoptysis, he matemesis, hematochezia. OBJECTIVE: VITAL SIGNS: Blood pressure is 123/58, respiration is 24, pulse 99, temperature 98.6. I's and O's h ave been reviewed. HEENT: Head is normocephalic. Pupils are reactive to light. NECK: Supple. HEART: Regular rate. LUNGS: Show diminished breath sounds at the base. ABDOMEN: Soft, nontender to palpation without rebound or guarding. EXTREMITIES: Negative for clubbing, cyanosis, positive edema, diffuse anasarca. DERMATOLOGIC: No rashes. MUSCULOSKELETAL: No joint effusion. NEUROLOGIC: No change in exam. MEDICATIONS: Have been reviewed. LABORATORY DATA: Show sodium 139, potassium 3.1, BUN 50, creatinine 1.17, magnesium 1.3. White coun t 7.8, hemoglobin 7.2, platelet count 149. IMAGING STUDIES: Have were reviewed. ASSESSMENT AND PLAN: 1. Nonoliguric acute kidney injury on top of chronic kidney disease with previous baseline creatinin e 2.5 mg/dL. Etiology of acute kidney injury is secondary to shock, sepsis. The patient was initiat ed on hemodialysis for solute clearance and volume removal. The patient's urinary output is increasi ng. We will plan for dialysis today for volume removal. Monitor urinary output closely. Monitor f or continued signs of recovery. 2. Metabolic acidosis, improved. 3. Anemia. Continue to monitor hemoglobin and hematocrit levels. 4. Mineral bone disorder, monitor calcium and phosphorus levels. 5. Hypokalemia. Will replete with potassium chloride. 6. Hypomagnesemia, replete magnesium sulfate. 7. Sepsis, status post shock secondary to urinary tract infection and pneumonia. Continue current a ntibiotic regimen. Continue pressor support. 8. Tachyarrhythmia. Continue to monitor. 9. Ventilator dependent respiratory failure. Vent settings and ABG was reviewed. Continue to monit or. 10. Dysphagia, status post PEG, continue tube feeding. 11. Acute encephalopathy, etiology toxic metabolic. 12. Decompensated heart failure. Continue medical management. Dictated By: JEANA FINE/TABATHA Conf#: [id number] [facility]#: [id number] CC: ROLAND GIRON MD;*End*
[2018-05-18] MEDS: MULTIVITAMINS 30 ML CUP GTB SCH (09:26)
[2018-05-18] MEDS: ASCORBIC ACID 500 MG TAB GTB SCH (09:26)
[2018-05-18] MEDS: ZINC SULFATE 220 MG CAP GTB SCH (09:27)
[2018-05-18] MEDS: CHOLESTYRAMINE (LIGHT) 4 GM PACKET PO SCH ×2 (09:27→20:57)
[2018-05-18] MEDS: COLLAGENASE 5 GM (UD JAR) TOP SCH (09:28)
[2018-05-18] MEDS: BALSAM PERU/CASTOR OIL 60 GM TUBE TOP SCH ×2 (09:28→20:59)
[2018-05-18] MEDS: MEROPENEM 500MG/50 ML (PMX) 50 ML IVPB SCH ×2 (10:55→20:57)
[2018-05-18] MEDS: SOD CHLORIDE 0.9% 1,000 ML IV SCH (10:56)
--- NOTE | 2018-05-18 11:02 | CONS ---
Consult Date/Type/Reason Admit Date/Time May 06, 2018 at 17:38 Initial Consult Date 05/10/18 Type of Consult Pulmonary Requesting Provider: ROLAND GIRON MD Date/Time of Note DATE: 05/18/18 TIME: 11:01 Subjective More alert, opens eyes but not following commands. Currently still requiring vasopressor support. Pending hemodialysis. Chest x-ray shows ongoing bilateral infiltrates. Objective Vital Signs Date Temp Pulse Resp B/P (MAP) Pulse Ox O2 O2 Flow FiO2 Time Delivery Rate 05/18/18 111 25 96 35 09:07 05/18/18 123/58 Mechanical 07:00 (79) Ventilator 05/18/18 98.4 04:00 Intake and Output 05/17/18 05/17/18 05/18/18 1414:59 22:59 06:59 IntakeIntake Total 1270 ml 1233.36 ml 640.68 ml OutputOutput Total 450 ml 300 ml 330 ml BalanceBalance 820 ml 933.36 ml 310.68 ml Exam GENERAL: Elderly appearing lady on mechanical ventilation orally intubated VITAL SIGNS: per chart NECK: Supple. No JVD or lymphadenopathy. CARDIAC EXAM: S1, S2. No added sounds or murmurs. CHEST: Diminished air entry bilaterally ABDOMEN: Soft, nontender. No guarding or rebound. EXTREMITIES: No cyanosis, clubbing edema +2 NEUROLOGIC: Generalized weakness. Vent Setting Ventilator Support Mode: AC Fraction of Inspired Oxygen pe: 35 Positive End Expiratory Pressu: 5.0 Results/Medications Result Diagram: 05/18/18 0430 05/18/18 043 Results 24 hrs Laboratory Tests Test 05/17/18 15:26 05/17/18 22:05 05/18/18 04:30 05/18/18 07:00 White Blood Count 7.7 7.8 Red Blood Count 2.39 L 2.07 L Hemoglobin 7.9 L 7.2 L Hematocrit 25.8 L 22.3 L Mean Corpuscular 107.9 H 107.7 H Volume Mean Corpuscular 33.1 H 34.8 H Hemoglobin Mean Corpuscular 30.6 L 32.3 Hemoglobin Concen t Red Cell 17.2 H 17.2 H Distribution Width Platelet Count 147 149 Mean Platelet 9.3 9.7 Volume Immature 0.400 0.400 Granulocytes % Neutrophils % 83.2 H Lymphocytes % 10.9 L Monocytes % 3.6 Eosinophils % 1.8 Basophils % 0.1 Nucleated Red 0.0 0.0 Blood Cells % Immature 0.030 0.030 Granulocytes # Neutrophils # 6.4 Lymphocytes # 0.8 Monocytes # 0.3 Eosinophils # 0.1 Basophils # 0.0 Nucleated Red 0.0 Blood Cells # Sodium Level 139 138 139 Potassium Level 2.8 *L 3.0 L 3.1 L Chloride Level 102 100 105 Carbon Dioxide 30 30 25 Level Anion Gap 7 8 9 Blood Urea 53 #H 53 H 50 H Nitrogen Creatinine 1.31 H 1.30 H 1.17 H Est Glomerular Filtrat Rate mL/min Glucose Level 95 109 77 Calcium Level 7.9 L 7.7 L 7.1 L Total Bilirubin 0.1 L 0.1 L Direct Bilirubin 0.00 0.00 Indirect 0.1 0.1 Bilirubin Aspartate Amino 16 15 Transf (AST/SGOT) Alanine 18 20 Aminotransferase (ALT/SGPT) Alkaline 96 81 Phosphatase Total Protein 4.9 L 4.6 L Albumin 2.0 L 1.8 L Globulin 2.90 2.80 Albumin/Globulin 0.68 0.64 Ratio Segmented 77 Neutrophils % (Manual) Band Neutrophils 7 H % (Manual) Lymphocytes % 12 L (Manual) Monocytes % 1 (Manual) Eosinophils % 3 (Manual) Neutrophils # 6.0 (Manual) Band Neutrophils 0.5 # Lymphocytes 0.9 (Manual) Monocytes # 0.0 L (Manual) Platelet Estimate NORMAL Giant Platelets 1 H Polychromasia 3+ Poikilocytosis 2+ Anisocytosis 3+ Microcytosis 1+ Macrocytosis 3+ Target Cells 1+ Ovalocytes 1+ Phosphorus Level 2.6 Magnesium Level 1.3 L Blood Gas Blood arterial Specimen Source Arterial Blood 05/18/2018 7:15:44 Date Drawn AM Arterial Blood pH 7.469 H (Temp corrected) Arterial Blood 41.6 pCO2 (Temp correct) Arterial Blood 92.7 H pO2 (Temp corrected) Arterial Blood 29.5 H HCO3 Arterial Blood 5.4 H Base Excess Arterial Blood 96.8 Oxygen Saturation Steven Test ACCEPTAB Arterial Blood Right Radial Gas Puncture Site Arterial 1.0 Blood Carboxyhemo globin Arterial Blood 0.1 Methemoglobin Blood Gas A-a O2 108.5 H Differential Oxyhemoglobin 95.7 Percent Blood Gas 37.0 Temperature Blood Gas 20.0 Respiration Rate Blood Gas Actual 23 Respiration Rate Blood Gas VENT - AC Modality FiO2 35.0 Blood Gas Tidal 500.0 Volume Blood Gas Low 5.0 PEEP Setting Blood Gas TM Notified Whom Blood Gas 05/18/2018 7:24:27 Notified Time AM Medications Current Medications IV Flush (NS 10 ml) 10 ml PRN IV ; Start 05/06/18 at 20:30 Ascorbic Acid (Vitamin C) 500 mg DAILY GTB Last administered on 05/18/18 09:26; Admin Dose 500 MG; Start 05/07/18 at 09:00 Albuterol/ Ipratropium (Duoneb) 3 ml Q2H RESP THERAPY PRN HHN SHORTNESS OF BREATH; Start 05/06/18 at 23:30 Lorazepam (Ativan Intensol) 0.5 mg Q6H PRN PEG ANXIETY; Start 05/06/18 at 23:30 Zinc Sulfate (Zinc Sulfate) 220 mg DAILY GTB Last administered on 05/18/18 09:27; Admin Dose 220 MG; Start 05/07/18 at 09:00 Ondansetron HCl (Zofran Tab) 4 mg Q6H PRN GTB NAUSEA AND/OR VOMITING; Start 05/07/18 at 00:15 Multivitamins (Multivitamin) 30 ml DAILY GTB Last administered on 05/18/18 09:26; Admin Dose 30 ML; Start 05/07/18 at 09:00 Epoetin Zen (Epogen (Esrd)) 20,000 units Tu@1700 SC Last administered on 05/12/18at 17:36; Admin Dose 20,000 UNITS; Start 05/12/18 at 17:00 Norepinephrine 250 ml @ 1.875 mls/ hr TITRATE IV Last administered on 05/08/18at 13:33; Admin Dose 33.75 MLS/HR; Start 05/08/18 at 03:00 Citric Acid/ Sodium Citrate (Bicitra) 30 ml Q8 PO Last administered on 05/18/18 06:22; Admin Dose 30 ML; Start 05/09/18 at 08:00 Phenylephrine HCl 80 mg/Dextrose 250 ml @ 18.75 mls/ hr TITRATE IV Last administered on 05/15/18 01:50; Admin Dose 5.63 MLS/HR; Start 05/09/18 at 12:30 Miscellaneous Information (Pending Santyl Order For Wound Care) This patient goldman... PRN PRN XX WOUND CARE; Start 05/09/18 at 17:00 Vancomycin HCl (Vancomycin Oral Syringe) 250 mg Q6 PO Last administered on 05/18/18 06:22; Admin Dose 250 MG; Start 05/12/18 at 00:00 Metronidazole 100 ml @ 100 mls/hr Q8 IVPB Last administered on 05/18/18 06:22; Admin Dose 100 MLS/HR; Start 05/11/18 at 20:00 Collagenase (Santyl) 1 applic DAILY TOP Last administered on 05/18/18 09:28; Admin Dose 1 APPLIC; Start 05/13/18 at 09:00 Propofol 100 ml @ 2.64 mls/hr Q12H IV Last administered on 05/18/18 09:49; Admin Dose 15.84 MLS/HR; Start 05/12/18 at 18:30 Albuterol (Ventolin Hfa) 4 puff Q6H RESP THERAPY INH Last administered on 05/18/18 09:06; Admin Dose 4 PUFF; Start 05/12/18 at 20:00 Ipratropium [place] (Atrovent Hfa) 4 puff Q6H RESP THERAPY INH Last administered on 05/18/18 09:05; Admin Dose 4 PUFF; Start 05/12/18 at 20:00 Meropenem/Sodium Chloride 50 ml @ 100 mls/hr Q12 IVPB Last administered on 05/18/18 10:55; Admin Dose 100 MLS/HR; Start 05/13/18 at 21:00 Cholestyramine Resin (Questran Light) 4 gm BID PO Last administered on 05/18/18 09:27; Admin Dose 4 GM; Start 05/14/18 at 21:00 Sodium Chloride 1,000 ml @ 50 mls/hr Q20H IV Last administered on 05/18/18 10:56; Admin Dose 50 MLS/HR; Start 05/15/18 at 08:00 Heparin Sodium (Porcine) (Heparin (1000 Units/ml)) 2,800 unit AFTER DIALYSIS CATHETER Last administered on 05/16/18 19:25; Admin Dose 2,800 UNIT; Start 05/16/18 at 16:30 Assessment/Plan Hospital Course (Demo Recall) IMP: 1. Septic shock likely secondary to recent UTI now C. difficile colitis, possible healthcare associated pneumonia also 2. Acute Renal Failure--likely non-oliguric ATN 3. Resolved metabolic acidosis 4. Encephalopathy--toxic-metabolic 2/2 infection and ARF, in addition to baseline 5. Anemia--r/o acute GIB 6. H/O abdominal abscess 7. Acute hypoxemic respiratory failure secondary to above, continue mechanical ventilation RECS: 1. IV fluids per nephrology 2. Continue mechanical ventilation, decrease FiO2 as tolerated 3. Abx as per ID 4. Continue tube feeding as tolerated 5. Aspiration precautions pulmonary toilet 6. Monitor H&H post transfusion 7. Renal recommendations Continue supportive care, Critical care time 40 minutes. LAURA JENKINS MD, [facility] May 18, 2018 11:02
--- NOTE | 2018-05-18 11:23 | CONS ---
Assessment/Plan Assessment/Plan Hospital Course (Demo Recall) EMR reviewed. Case d/w SECURITY SPECIALIST. Care coordinated and directed. Consultation Date/Type/Reason Admit Date/Time May 06, 2018 at 17:38 Initial Consult Date 05/10/18 Type of Consult ID Requesting Provider: ROLAND GIRON MD Date/Time of Note DATE: 05/18/18 TIME: 11:23 Exam/Review of Systems Exam Vitals Vital Signs Date Temp Pulse Resp B/P (MAP) Pulse Ox O2 O2 Flow FiO2 Time Delivery Rate 05/18/18 111 25 96 35 09:07 05/18/18 123/58 Mechanical 07:00 (79) Ventilator 05/18/18 98.4 04:00 Intake and Output 05/17/18 05/17/18 05/18/18 1414:59 22:59 06:59 IntakeIntake Total 1270 ml 1233.36 ml 640.68 ml OutputOutput Total 450 ml 300 ml 330 ml BalanceBalance 820 ml 933.36 ml 310.68 ml Results Result Diagram: 05/18/18 0430 05/18/18 0430 Results 24hrs Laboratory Tests Test 05/17/18 15:26 05/17/18 22:05 05/18/18 04:30 05/18/18 07:00 White Blood Count 7.7 7.8 Red Blood Count 2.39 L 2.07 L Hemoglobin 7.9 L 7.2 L Hematocrit 25.8 L 22.3 L Mean Corpuscular 107.9 H 107.7 H Volume Mean Corpuscular 33.1 H 34.8 H Hemoglobin Mean Corpuscular 30.6 L 32.3 Hemoglobin Concen t Red Cell 17.2 H 17.2 H Distribution Width Platelet Count 147 149 Mean Platelet 9.3 9.7 Volume Immature 0.400 0.400 Granulocytes % Neutrophils % 83.2 H Lymphocytes % 10.9 L Monocytes % 3.6 Eosinophils % 1.8 Basophils % 0.1 Nucleated Red 0.0 0.0 Blood Cells % Immature 0.030 0.030 Granulocytes # Neutrophils # 6.4 Lymphocytes # 0.8 Monocytes # 0.3 Eosinophils # 0.1 Basophils # 0.0 Nucleated Red 0.0 Blood Cells # Sodium Level 139 138 139 Potassium Level 2.8 *L 3.0 L 3.1 L Chloride Level 102 100 105 Carbon Dioxide 30 30 25 Level Anion Gap 7 8 9 Blood Urea 53 #H 53 H 50 H Nitrogen Creatinine 1.31 H 1.30 H 1.17 H Est Glomerular Filtrat Rate mL/min Glucose Level 95 109 77 Calcium Level 7.9 L 7.7 L 7.1 L Total Bilirubin 0.1 L 0.1 L Direct Bilirubin 0.00 0.00 Indirect 0.1 0.1 Bilirubin Aspartate Amino 16 15 Transf (AST/SGOT) Alanine 18 20 Aminotransferase (ALT/SGPT) Alkaline 96 81 Phosphatase Total Protein 4.9 L 4.6 L Albumin 2.0 L 1.8 L Globulin 2.90 2.80 Albumin/Globulin 0.68 0.64 Ratio Segmented 77 Neutrophils % (Manual) Band Neutrophils 7 H % (Manual) Lymphocytes % 12 L (Manual) Monocytes % 1 (Manual) Eosinophils % 3 (Manual) Neutrophils # 6.0 (Manual) Band Neutrophils 0.5 # Lymphocytes 0.9 (Manual) Monocytes # 0.0 L (Manual) Platelet Estimate NORMAL Giant Platelets 1 H Polychromasia 3+ Poikilocytosis 2+ Anisocytosis 3+ Microcytosis 1+ Macrocytosis 3+ Target Cells 1+ Ovalocytes 1+ Phosphorus Level 2.6 Magnesium Level 1.3 L Blood Gas Blood arterial Specimen Source Arterial Blood 05/18/2018 7:15:44 Date Drawn AM Arterial Blood pH 7.469 H (Temp corrected) Arterial Blood 41.6 pCO2 (Temp correct) Arterial Blood 92.7 H pO2 (Temp corrected) Arterial Blood 29.5 H HCO3 Arterial Blood 5.4 H Base Excess Arterial Blood 96.8 Oxygen Saturation Steven Test ACCEPTAB Arterial Blood Right Radial Gas Puncture Site Arterial 1.0 Blood Carboxyhemo globin Arterial Blood 0.1 Methemoglobin Blood Gas A-a O2 108.5 H Differential Oxyhemoglobin 95.7 Percent Blood Gas 37.0 Temperature Blood Gas 20.0 Respiration Rate Blood Gas Actual 23 Respiration Rate Blood Gas VENT - AC Modality FiO2 35.0 Blood Gas Tidal 500.0 Volume Blood Gas Low 5.0 PEEP Setting Blood Gas TM Notified Whom Blood Gas 05/18/2018 7:24:27 Notified Time AM Medications Medication Current Medications IV Flush (NS 10 ml) 10 ml PRN IV ; Start 05/06/18 at 20:30 Ascorbic Acid (Vitamin C) 500 mg DAILY GTB Last administered on 05/18/18 09:26; Admin Dose 500 MG; Start 05/07/18 at 09:00 Albuterol/ Ipratropium (Duoneb) 3 ml Q2H RESP THERAPY PRN HHN SHORTNESS OF BREATH; Start 05/06/18 at 23:30 Lorazepam (Ativan Intensol) 0.5 mg Q6H PRN PEG ANXIETY; Start 05/06/18 at 23:30 Zinc Sulfate (Zinc Sulfate) 220 mg DAILY GTB Last administered on 05/18/18 09:27; Admin Dose 220 MG; Start 05/07/18 at 09:00 Ondansetron HCl (Zofran Tab) 4 mg Q6H PRN GTB NAUSEA AND/OR VOMITING; Start 05/07/18 at 00:15 Multivitamins (Multivitamin) 30 ml DAILY GTB Last administered on 05/18/18 09:26; Admin Dose 30 ML; Start 05/07/18 at 09:00 Epoetin Zen (Epogen (Esrd)) 20,000 units Tu@1700 SC Last administered on 05/12/18 17:36; Admin Dose 20,000 UNITS; Start 05/12/18 at 17:00 Norepinephrine 250 ml @ 1.875 mls/ hr TITRATE IV Last administered on 05/08/18 13:33; Admin Dose 33.75 MLS/HR; Start 05/08/18 at 03:00 Citric Acid/ Sodium Citrate (Bicitra) 30 ml Q8 PO Last administered on 05/18/18 06:22; Admin Dose 30 ML; Start 05/09/18 at 08:00 Phenylephrine HCl 80 mg/Dextrose 250 ml @ 18.75 mls/ hr TITRATE IV Last administered on 05/15/18 01:50; Admin Dose 5.63 MLS/HR; Start 05/09/18 at 12:30 Miscellaneous Information (Pending Santyl Order For Wound Care) This patient goldman... PRN PRN XX WOUND CARE; Start 05/09/18 at 17:00 Vancomycin HCl (Vancomycin Oral Syringe) 250 mg Q6 PO Last administered on 05/18/18 06:22; Admin Dose 250 MG; Start 05/12/18 at 00:00 Metronidazole 100 ml @ 100 mls/hr Q8 IVPB Last administered on 05/18/18 06:22; Admin Dose 100 MLS/HR; Start 05/11/18 at 20:00 Collagenase (Santyl) 1 applic DAILY TOP Last administered on 05/18/18 09:28; Admin Dose 1 APPLIC; Start 05/13/18 at 09:00 Propofol 100 ml @ 2.64 mls/hr Q12H IV Last administered on 05/18/18 09:49; Admin Dose 15.84 MLS/HR; Start 05/12/18 at 18:30 Albuterol (Ventolin Hfa) 4 puff Q6H RESP THERAPY INH Last administered on 05/18/18 09:06; Admin Dose 4 PUFF; Start 05/12/18 at 20:00 Ipratropium [place] (Atrovent Hfa) 4 puff Q6H RESP THERAPY INH Last administered on 05/18/18 09:05; Admin Dose 4 PUFF; Start 05/12/18 at 20:00 Meropenem/Sodium Chloride 50 ml @ 100 mls/hr Q12 IVPB Last administered on 05/18/18 10:55; Admin Dose 100 MLS/HR; Start 05/13/18 at 21:00 Cholestyramine Resin (Questran Light) 4 gm BID PO Last administered on 05/18/18 09:27; Admin Dose 4 GM; Start 05/14/18 at 21:00 Sodium Chloride 1,000 ml @ 50 mls/hr Q20H IV Last administered on 05/18/18 10:56; Admin Dose 50 MLS/HR; Start 05/15/18 at 08:00 Heparin Sodium (Porcine) (Heparin (1000 Units/ml)) 2,800 unit AFTER DIALYSIS CATHETER Last administered on 05/16/18 19:25; Admin Dose 2,800 UNIT; Start 05/16/18 at 16:30 MANN VALDEZ MD May 18, 2018 11:23
--- NOTE | 2018-05-18 12:31 | CONS ---
Assessment/Plan Assessment/Plan Hospital Course (Demo Recall) Septic as well as hemorrhagic shock Hypotension, off IV pressor and improving Acute respiratory failure status post intubation Acute blood loss anemia Septic shock and hemorrhagic shock History of respiratory failure status post decannulation Preserved ejection fraction echocardiogram 05/10/2018 Paroxysmal atrial fibrillation, currently sinus rhythm Acute kidney injury -Patient has been titrated off IV pressor -Vent management as per pulmonary -Fluid management and electrolytes as per renal -Hold all antihypertensives and nephrotoxic medications at the current time -Antibiotics as per infectious disease Consultation Date/Type/Reason Admit Date/Time May 06, 2018 at 17:38 Initial Consult Date 05/10/18 Type of Consult Cardiology Requesting Provider: ROLAND GIRON MD Date/Time of Note DATE: 05/18/18 TIME: 12:30 24 HR Interval Summary Free Text/Dictation Patient seen and examined. Remains intubated and sedated Exam/Review of Systems Vital Signs Vitals Vital Signs Date Temp Pulse Resp B/P (MAP) Pulse Ox O2 O2 Flow FiO2 Time Delivery Rate 05/18/18 111 25 96 35 09:07 05/18/18 123/58 Mechanical 07:00 (79) Ventilator 05/18/18 98.4 04:00 Intake and Output 05/17/18 05/17/18 05/18/18 1515:00 23:00 07:00 IntakeIntake Total 1270 ml 1334.20 ml 439.84 ml OutputOutput Total 450 ml 300 ml 280 ml BalanceBalance 820 ml 1034.20 ml 159.84 ml Exam Exam Intubated and sedated, family at bedside Head: normocephalic ENMT: intubated Respiratory: other (Coarse breath sounds bilaterally, no wheezing) Cardiovascular: regular rate and rhythm (S1-S2 heard) Gastrointestinal: soft, non-tender, bowel sounds Extremities: edema Labs Result Diagram: 05/18/18 04305/18/18 043 Results 24hrs Laboratory Tests Test 05/17/18 15:26 05/17/18 22:05 05/18/18 04:30 05/18/18 07:00 White Blood Count 7.7 7.8 Red Blood Count 2.39 L 2.07 L Hemoglobin 7.9 L 7.2 L Hematocrit 25.8 L 22.3 L Mean Corpuscular 107.9 H 107.7 H Volume Mean Corpuscular 33.1 H 34.8 H Hemoglobin Mean Corpuscular 30.6 L 32.3 Hemoglobin Concen t Red Cell 17.2 H 17.2 H Distribution Width Platelet Count 147 149 Mean Platelet 9.3 9.7 Volume Immature 0.400 0.400 Granulocytes % Neutrophils % 83.2 H Lymphocytes % 10.9 L Monocytes % 3.6 Eosinophils % 1.8 Basophils % 0.1 Nucleated Red 0.0 0.0 Blood Cells % Immature 0.030 0.030 Granulocytes # Neutrophils # 6.4 Lymphocytes # 0.8 Monocytes # 0.3 Eosinophils # 0.1 Basophils # 0.0 Nucleated Red 0.0 Blood Cells # Sodium Level 139 138 139 Potassium Level 2.8 *L 3.0 L 3.1 L Chloride Level 102 100 105 Carbon Dioxide 30 30 25 Level Anion Gap 7 8 9 Blood Urea 53 #H 53 H 50 H Nitrogen Creatinine 1.31 H 1.30 H 1.17 H Est Glomerular Filtrat Rate mL/min Glucose Level 95 109 77 Calcium Level 7.9 L 7.7 L 7.1 L Total Bilirubin 0.1 L 0.1 L Direct Bilirubin 0.00 0.00 Indirect 0.1 0.1 Bilirubin Aspartate Amino 16 15 Transf (AST/SGOT) Alanine 18 20 Aminotransferase (ALT/SGPT) Alkaline 96 81 Phosphatase Total Protein 4.9 L 4.6 L Albumin 2.0 L 1.8 L Globulin 2.90 2.80 Albumin/Globulin 0.68 0.64 Ratio Segmented 77 Neutrophils % (Manual) Band Neutrophils 7 H % (Manual) Lymphocytes % 12 L (Manual) Monocytes % 1 (Manual) Eosinophils % 3 (Manual) Neutrophils # 6.0 (Manual) Band Neutrophils 0.5 # Lymphocytes 0.9 (Manual) Monocytes # 0.0 L (Manual) Platelet Estimate NORMAL Giant Platelets 1 H Polychromasia 3+ Poikilocytosis 2+ Anisocytosis 3+ Microcytosis 1+ Macrocytosis 3+ Target Cells 1+ Ovalocytes 1+ Phosphorus Level 2.6 Magnesium Level 1.3 L Blood Gas Blood arterial Specimen Source Arterial Blood 05/18/2018 7:15:44 Date Drawn AM Arterial Blood pH 7.469 H (Temp corrected) Arterial Blood 41.6 pCO2 (Temp correct) Arterial Blood 92.7 H pO2 (Temp corrected) Arterial Blood 29.5 H HCO3 Arterial Blood 5.4 H Base Excess Arterial Blood 96.8 Oxygen Saturation Steven Test ACCEPTAB Arterial Blood Right Radial Gas Puncture Site Arterial 1.0 Blood Carboxyhemo globin Arterial Blood 0.1 Methemoglobin Blood Gas A-a O2 108.5 H Differential Oxyhemoglobin 95.7 Percent Blood Gas 37.0 Temperature Blood Gas 20.0 Respiration Rate Blood Gas Actual 23 Respiration Rate Blood Gas VENT - AC Modality FiO2 35.0 Blood Gas Tidal 500.0 Volume Blood Gas Low 5.0 PEEP Setting Blood Gas TM Notified Whom Blood Gas 05/18/2018 7:24:27 Notified Time AM Medications Medications Current Medications IV Flush (NS 10 ml) 10 ml PRN IV ; Start 05/06/18 at 20:30 Ascorbic Acid (Vitamin C) 500 mg DAILY GTB Last administered on 05/18/18 09:26; Admin Dose 500 MG; Start 05/07/18 at 09:00 Albuterol/ Ipratropium (Duoneb) 3 ml Q2H RESP THERAPY PRN HHN SHORTNESS OF BREATH; Start 05/06/18 at 23:30 Lorazepam (Ativan Intensol) 0.5 mg Q6H PRN PEG ANXIETY; Start 05/06/18 at 23:30 Zinc Sulfate (Zinc Sulfate) 220 mg DAILY GTB Last administered on 05/18/18 09:27; Admin Dose 220 MG; Start 05/07/18 at 09:00 Ondansetron HCl (Zofran Tab) 4 mg Q6H PRN GTB NAUSEA AND/OR VOMITING; Start 05/07/18 at 00:15 Multivitamins (Multivitamin) 30 ml DAILY GTB Last administered on 05/18/18 09:26; Admin Dose 30 ML; Start 05/07/18 at 09:00 Epoetin Zen (Epogen (Esrd)) 20,000 units Tu@1700 SC Last administered on 05/12/18 17:36; Admin Dose 20,000 UNITS; Start 05/12/18 at 17:00 Norepinephrine 250 ml @ 1.875 mls/ hr TITRATE IV Last administered on 05/08/18 13:33; Admin Dose 33.75 MLS/HR; Start 05/08/18 at 03:00 Citric Acid/ Sodium Citrate (Bicitra) 30 ml Q8 PO Last administered on 05/18/18 06:22; Admin Dose 30 ML; Start 05/09/18 at 08:00 Phenylephrine HCl 80 mg/Dextrose 250 ml @ 18.75 mls/ hr TITRATE IV Last ad ministered on 05/15/18 01:50; Admin Dose 5.63 MLS/HR; Start 05/09/18 at 12:30 Miscellaneous Information (Pending Santyl Order For Wound Care) This patient goldman... PRN PRN XX WOUND CARE; Start 05/09/18 at 17:00 Vancomycin HCl (Vancomycin Oral Syringe) 250 mg Q6 PO Last administered on 05/18/18 06:22; Admin Dose 250 MG; Start 05/12/18 at 00:00 Metronidazole 100 ml @ 100 mls/hr Q8 IVPB Last administered on 05/18/18 06:22; Admin Dose 100 MLS/HR; Start 05/11/18 at 20:00 Collagenase (Santyl) 1 applic DAILY TOP Last administered on 05/18/18 09:28; Admin Dose 1 APPLIC; Start 05/13/18 at 09:00 Propofol 100 ml @ 2.64 mls/hr Q12H IV Last administered on 05/18/18 09:49; Admin Dose 15.84 MLS/HR; Start 05/12/18 at 18:30 Albuterol (Ventolin Hfa) 4 puff Q6H RESP THERAPY INH Last administered on 12:28; Admin Dose 4 PUFF; Start 05/12/18 at 20:00 Ipratropium [place] (Atrovent Hfa) 4 puff Q6H RESP THERAPY INH Last administered on 05/18/18 12:28; Admin Dose 4 PUFF; Start 05/12/18 at 20:00 Meropenem/Sodium Chloride 50 ml @ 100 mls/hr Q12 IVPB Last administered on 05/18/18 10:55; Admin Dose 100 MLS/HR; Start 05/13/18 at 21:00 Cholestyramine Resin (Questran Light) 4 gm BID PO Last administered on 05/18/18 09:27; Admin Dose 4 GM; Start 05/14/18 at 21:00 Sodium Chloride 1,000 ml @ 50 mls/hr Q20H IV Last administered on 05/18/18 10:56; Admin Dose 50 MLS/HR; Start 05/15/18 at 08:00 Heparin Sodium (Porcine) (Heparin (1000 Units/ml)) 2,800 unit AFTER DIALYSIS CATHETER Last administered on 05/16/18at 19:25; Admin Dose 2,800 UNIT; Start 05/16/18 at 16:30 Evangelista Scanlon DO May 18, 2018 12:31
--- NOTE | 2018-05-18 12:39 | PN ---
Date/Time of Note Date/Time of Note DATE: 05/18/18 TIME: 12:33 Assessment/Plan VTE Prophylaxis Risk score (from [facility] [place]0 risk: 13 SCD applied (from [facility] [place]): Yes Pharmacological prophylaxis: NA/contraindicated Pharm contraindication: other Lines/Catheters IV C[facility]ter Type (from [facility]): CHARLI Central line still needed: Yes Urinary Cath still in place: Yes Reason Cath still needed: urinary retention Assessment/Plan Hospital Course Patient continues on ventilatory support, sedated on propofol, off pressors patient was started on hemodialysis for acute kidney injury. Hemoglobin is 7.2 we will transfuse 1 unit of packed red blood cells with hemodialysis today. Diarrhea, patient is on vancomycin via G-tube, IV metronidazole and Questran for C. difficile colitis. Assessment/Plan -Septic shock secondary to urinary tract infection, anterior neck soft tissue infection, and C. difficile colitis, resolving. Continue antibiotics per ID. Dr. Black is following in infection disease consultation. -Acute respiratory failure requiring intubation and ventilatory support. Dr. Shayna mosqueda is following in pulmonology consultation. -Acute kidney injury on chronic kidney disease. Plan for initiating hemodialysis. Dr. Mckeon is following in nephrology consultation. -Metabolic acidosis, resolved. -Acute diastolic congestive heart failure. Dr. Scanlon is following in cardiology consultation. -Paroxysmal atrial fibrillation, remains sinus rhythm -COPD -Dysphagia with PEG. -G-tube mild malfunction, changed by GI Dr. Carolina is following in gastroenterology consultation. -Obesity Critical care time spent is 30 minutes. Further recommendations based on clinical course. Plan of care discussed with Dr. Eisenberg. Result Diagram: 05/18/18 0430 05/18/18 0430 Results 24hrs Laboratory Tests Test 05/17/18 15:26 05/17/18 22:05 05/18/18 04:30 05/18/18 07:00 White Blood Count 7.7 7.8 Red Blood Count 2.39 L 2.07 L Hemoglobin 7.9 L 7.2 L Hematocrit 25.8 L 22.3 L Mean Corpuscular 107.9 H 107.7 H Volume Mean Corpuscular 33.1 H 34.8 H Hemoglobin Mean Corpuscular 30.6 L 32.3 Hemoglobin Concen t Red Cell 17.2 H 17.2 H Distribution Width Platelet Count 147 149 Mean Platelet 9.3 9.7 Volume Immature 0.400 0.400 Granulocytes % Neutrophils % 83.2 H Lymphocytes % 10.9 L Monocytes % 3.6 Eosinophils % 1.8 Basophils % 0.1 Nucleated Red 0.0 0.0 Blood Cells % Immature 0.030 0.030 Granulocytes # Neutrophils # 6.4 Lymphocytes # 0.8 Monocytes # 0.3 Eosinophils # 0.1 Basophils # 0.0 Nucleated Red 0.0 Blood Cells # Sodium Level 139 138 139 Potassium Level 2.8 *L 3.0 L 3.1 L Chloride Level 102 100 105 Carbon Dioxide 30 30 25 Level Anion Gap 7 8 9 Blood Urea 53 #H 53 H 50 H Nitrogen Creatinine 1.31 H 1.30 H 1.17 H Est Glomerular Filtrat Rate mL/min Glucose Level 95 109 77 Calcium Level 7.9 L 7.7 L 7.1 L Total Bilirubin 0.1 L 0.1 L Direct Bilirubin 0.00 0.00 Indirect 0.1 0.1 Bilirubin Aspartate Amino 16 15 Transf (AST/SGOT) Alanine 18 20 Aminotransferase (ALT/SGPT) Alkaline 96 81 Phosphatase Total Protein 4.9 L 4.6 L Albumin 2.0 L 1.8 L Globulin 2.90 2.80 Albumin/Globulin 0.68 0.64 Ratio Segmented 77 Neutrophils % (Manual) Band Neutrophils 7 H % (Manual) Lymphocytes % 12 L (Manual) Monocytes % 1 (Manual) Eosinophils % 3 (Manual) Neutrophils # 6.0 (Manual) Band Neutrophils 0.5 # Lymphocytes 0.9 (Manual) Monocytes # 0.0 L (Manual) Platelet Estimate NORMAL Giant Platelets 1 H Polychromasia 3+ Poikilocytosis 2+ Anisocytosis 3+ Microcytosis 1+ Macrocytosis 3+ Target Cells 1+ Ovalocytes 1+ Phosphorus Level 2.6 Magnesium Level 1.3 L Blood Gas Blood arterial Specimen Source Arterial Blood 05/18/2018 7:15:44 Date Drawn AM Arterial Blood pH 7.469 H (Temp corrected) Arterial Blood 41.6 pCO2 (Temp correct) Arterial Blood 92.7 H pO2 (Temp corrected) Arterial Blood 29.5 H HCO3 Arterial Blood 5.4 H Base Excess Arterial Blood 96.8 Oxygen Saturation Steven Test ACCEPTAB Arterial Blood Right Radial Gas Puncture Site Arterial 1.0 Blood Carboxyhemo globin Arterial Blood 0.1 Methemoglobin Blood Gas A-a O2 108.5 H Differential Oxyhemoglobin 95.7 Percent Blood Gas 37.0 Temperature Blood Gas 20.0 Respiration Rate Blood Gas Actual 23 Respiration Rate Blood Gas VENT - AC Modality FiO2 35.0 Blood Gas Tidal 500.0 Volume Blood Gas Low 5.0 PEEP Setting Blood Gas TM Notified Whom Blood Gas 05/18/2018 7:24:27 Notified Time AM Exam/Review of Systems Exam Vitals Vital Signs Date Temp Pulse Resp B/P (MAP) Pulse Ox O2 O2 Flow FiO2 Time Delivery Rate 05/18/18 111 25 96 35 09:07 05/18/18 123/58 Mechanical 07:00 (79) Ventilator 05/18/18 98.4 04:00 Intake and Output 05/17/18 05/17/18 05/18/18 1515:00 23:00 07:00 IntakeIntake Total 1270 ml 1334.20 ml 439.84 ml OutputOutput Total 450 ml 300 ml 280 ml BalanceBalance 820 ml 1034.20 ml 159.84 ml Exam Constitutional: frail, orally intubated Respiratory: diminished breath sounds Cardiovascular: regular rate and rhythm Gastrointestinal: soft, tender, other (G-tube) Musculoskeletal: nl extremities to inspection Extremities: normal pulses Neurological: sedated Results Results 24hrs Laboratory Tests Test 05/17/18 15:26 05/17/18 22:05 05/18/18 04:30 05/18/18 07:00 White Blood Count 7.7 7.8 Red Blood Count 2.39 L 2.07 L Hemoglobin 7.9 L 7.2 L Hematocrit 25.8 L 22.3 L Mean Corpuscular 107.9 H 107.7 H Volume Mean Corpuscular 33.1 H 34.8 H Hemoglobin Mean Corpuscular 30.6 L 32.3 Hemoglobin Concen t Red Cell 17.2 H 17.2 H Distribution Width Platelet Count 147 149 Mean Platelet 9.3 9.7 Volume Immature 0.400 0.400 Granulocytes % Neutrophils % 83.2 H Lymphocytes % 10.9 L Monocytes % 3.6 Eosinophils % 1.8 Basophils % 0.1 Nucleated Red 0.0 0.0 Blood Cells % Immature 0.030 0.030 Granulocytes # Neutrophils # 6.4 Lymphocytes # 0.8 Monocytes # 0.3 Eosinophils # 0.1 Basophils # 0.0 Nucleated Red 0.0 Blood Cells # Sodium Level 139 138 139 Potassium Level 2.8 *L 3.0 L 3.1 L Chloride Level 102 100 105 Carbon Dioxide 30 30 25 Level Anion Gap 7 8 9 Blood Urea 53 #H 53 H 50 H Nitrogen Creatinine 1.31 H 1.30 H 1.17 H Est Glomerular Filtrat Rate mL/min Glucose Level 95 109 77 Calcium Level 7.9 L 7.7 L 7.1 L Total Bilirubin 0.1 L 0.1 L Direct Bilirubin 0.00 0.00 Indirect 0.1 0.1 Bilirubin Aspartate Amino 16 15 Transf (AST/SGOT) Alanine 18 20 Aminotransferase (ALT/SGPT) Alkaline 96 81 Phosphatase Total Protein 4.9 L 4.6 L Albumin 2.0 L 1.8 L Globulin 2.90 2.80 Albumin/Globulin 0.68 0.64 Ratio Segmented 77 Neutrophils % (Manual) Band Neutrophils 7 H % (Manual) Lymphocytes % 12 L (Manual) Monocytes % 1 (Manual) Eosinophils % 3 (Manual) Neutrophils # 6.0 (Manual) Band Neutrophils 0.5 # Lymphocytes 0.9 (Manual) Monocytes # 0.0 L (Manual) Platelet Estimate NORMAL Giant Platelets 1 H Polychromasia 3+ Poikilocytosis 2+ Anisocytosis 3+ Microcytosis 1+ Macrocytosis 3+ Target Cells 1+ Ovalocytes 1+ Phosphorus Level 2.6 Magnesium Level 1.3 L Blood Gas Blood arterial Specimen Source Arterial Blood 05/18/2018 7:15:44 Date Drawn AM Arterial Blood pH 7.469 H (Temp corrected) Arterial Blood 41.6 pCO2 (Temp correct) Arterial Blood 92.7 H pO2 (Temp corrected) Arterial Blood 29.5 H HCO3 Arterial Blood 5.4 H Base Excess Arterial Blood 96.8 Oxygen Saturation Steven Test ACCEPTAB Arterial Blood Right Radial Gas Puncture Site Arterial 1.0 Blood Carboxyhemo globin Arterial Blood 0.1 Methemoglobin Blood Gas A-a O2 108.5 H Differential Oxyhemoglobin 95.7 Percent Blood Gas 37.0 Temperature Blood Gas 20.0 Respiration Rate Blood Gas Actual 23 Respiration Rate Blood Gas VENT - AC Modality FiO2 35.0 Blood Gas Tidal 500.0 Volume Blood Gas Low 5.0 PEEP Setting Blood Gas TM Notified Whom Blood Gas 05/18/2018 7:24:27 Notified Time AM Medications Medication Current Medications IV Flush (NS 10 ml) 10 ml PRN IV ; Start 05/06/18 at 20:30 Ascorbic Acid (Vitamin C) 500 mg DAILY GTB Last administered on 05/18/18 09:26; Admin Dose 500 MG; Start 05/07/18 at 09:00 Albuterol/ Ipratropium (Duoneb) 3 ml Q2H RESP THERAPY PRN HHN SHORTNESS OF BREATH; Start 05/06/18 at 23:30 Lorazepam (Ativan Intensol) 0.5 mg Q6H PRN PEG ANXIETY; Start 05/06/18 at 23:30 Zinc Sulfate (Zinc Sulfate) 220 mg DAILY GTB Last administered on 05/18/18 09:27; Admin Dose 220 MG; Start 05/07/18 at 09:00 Ondansetron HCl (Zofran Tab) 4 mg Q6H PRN GTB NAUSEA AND/OR VOMITING; Start 05/07/18 at 00:15 Multivitamins (Multivitamin) 30 ml DAILY GTB Last administered on 05/18/18 09:26; Admin Dose 30 ML; Start 05/07/18 at 09:00 Epoetin Zen (Epogen (Esrd)) 20,000 units Tu@1700 SC Last administered on at 17:36; Admin Dose 20,000 UNITS; Start 05/12/18 at 17:00 Norepinephrine 250 ml @ 1.875 mls/ hr TITRATE IV Last administered on 05/08/18at 13:33; Admin Dose 33.75 MLS/HR; Start 05/08/18 at 03:00 Citric Acid/ Sodium Citrate (Bicitra) 30 ml Q8 PO Last administered on 05/18/18 06:22; Admin Dose 30 ML; Start 05/09/18 at 08:00 Phenylephrine HCl 80 mg/Dextrose 250 ml @ 18.75 mls/ hr TITRATE IV Last administered on 05/15/18at 01:50; Admin Dose 5.63 MLS/HR; Start 05/09/18 at 12:30 [facility] This patient goldman... PRN PRN XX WOUND CARE; Start 05/09/18 at 17:00 Vancomycin HCl (Vancomycin Oral Syringe) 250 mg Q6 PO Last administered on 05/18/18 06:22; Admin Dose 250 MG; Start 05/12/18 at 00:00 Metronidazole 100 ml @ 100 mls/hr Q8 IVPB Last administered on 05/18/18 06:22; Admin Dose 100 MLS/HR; Start 05/11/18 at 20:00 Collagenase (Santyl) 1 applic DAILY TOP Last administered on 05/18/18 09:28; Admin Dose 1 APPLIC; Start 05/13/18 at 09:00 Propofol 100 ml @ 2.64 mls/hr Q12H IV Last administered on 05/18/18 09:49; Admin Dose 15.84 MLS/HR; Start 05/12/18 at 18:30 Albuterol (Ventolin Hfa) 4 puff Q6H RESP THERAPY INH Last administered on 05/18/18 12:30; Admin Dose 4 PUFF; Start 05/12/18 at 20:00 Ipratropium [place] (Atrovent Hfa) 4 puff Q6H RESP THERAPY INH Last administered on 05/18/18 12:30; Admin Dose 4 PUFF; Start 05/12/18 at 20:00 Meropenem/Sodium Chloride 50 ml @ 100 mls/hr Q12 IVPB Last administered on 05/18/18 10:55; Admin Dose 100 MLS/HR; Start 05/13/18 at 21:00 Cholestyramine Resin (Questran Light) 4 gm BID PO Last administered on 05/18/18 09:27; Admin Dose 4 GM; Start 05/14/18 at 21:00 Sodium Chloride 1,000 ml @ 50 mls/hr Q20H IV Last administered on 05/18/18 10:56; Admin Dose 50 MLS/HR; Start 05/15/18 at 08:00 Heparin Sodium (Porcine) (Heparin (1000 Units/ml)) 2,800 unit AFTER DIALYSIS CATHETER Last administered on 05/16/18 19:25; Admin Dose 2,800 UNIT; Start 05/16/18 at 16:30 GRISELDA DENNIS May 18, 2018 12:39
[2018-05-18] MEDS ORDERED: SOD CHLORIDE 0.9% 250 ML IV* ONE (12:55)
--- NOTE | 2018-05-18 16:54 | CONS ---
Assessment/Plan Assessment/Plan Hospital Course (Demo Recall) # sepsis, SIRS, pulmonary - septic shock due to pneumonia and C diff colitis. 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 colonization of the airway by pseudomonas and ESBL+kleb siella - h/o possible, recurrent HCAP due to pseudomonas and ESBL+klebsiella - h/o recurrent HCAP due to MRSA and Enterobacter (culture of tracheal aspirate on 07/16/2017 that was collected at [facility]) . Pt took vancomycin and ceftazidime - h/o acute respiratory distress post-thoracentesis, resolved - h/o thoracentesis on 07/18/2017, transudative (protein <2, LDH 279) - h/o bleeding from the trach site - h/o septic shock due to pneumonia, ARDS, bacteremia, fungemia - h/o ARDS - h/o smoking - COPD - ILD # Cardiac - PAF, currently sinus tachycardia # GI - C diff colitis, diagnosed on 05/11/2018 - h/o intermittent diarrhea, Pt had multiple negative C. diff tests at [facility] at [facility] in the past - dysphagia - h/o PEG placement 06/13/2018 - protein calorie malnutrition - h/o coffee ground emesis/UGIB 12/23/2017 due to deep ulceration of distal esophagus and gastritis on EGD 12/26/2017. No e/o H. pylori - h/o possible appendicitis on CT on 11/22/2017, Pt took ertapenem (11/24/2017-) - h/o extensive adhesions lower abdominal and pelvis between small bowel to each other and to colon and to abdominal wall, anterior pelvic wall chronic abscess secondary to probably an old perforated diverticulitis, torsion of small bowel around these dense adhesion causing multiple obstructive points - h/o laparoscopic exploration and extensive lysis of adhesions and drainage of anterior pelvic wall abscess 09/16/2017. Cultures were negative, no e/o malignancy. Pt took pip/tazo (09/16/2017-09/26/2017) - h/o partial obstruction mid jejunum in L anterior central pelvis with suggestion of a 3 cm soft tissue mass on CT 08/28/2017 - h/o internal stomal deep ulcer behind the internal bumper, gastritis and esophagitis, Rodriguez's cannot be ruled out, per EGD with biopsy 07/23/2017 - h/o GIB s/p flex sig showed polyp; stool OB negative on 06/29/17 - h/o stool OB positive status - h/o SBO and ileus due to pain meds - h/o EGD and exchange of PEG on 09/01/2017 - h/o mildly elevated CEA # renal/ - recurrent NATHAN on CKD - started on HD on 05/15/2018, via Kem in R groin - 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 JADE Villareal requested that Claudia at [facility] test his strain of CRE against colistin, Avycaz, Zerbaxa, and Vabomere on 05/07/2018 - Hyponatremia - Hyperkalemia, now hypokalemia - Metabolic acidosis - adrenal insufficiency - h/o vaginal bleed - h/o colonization of urinary tract by ESBL+klebsiella, VRE - h/o recurrent, symptomatic UTI due to carbapenem-resistant kleb (MDR strain) per urine culture 10/04/17, 10/09/17, 10/21/2017, P took colistin (10/09/2017- 10/15/2017), fosfomycin for carbapenemase-producing klebsiella and VRE on 10/25/2017 and 10/28/2017 - h/o funguria - h/o urinary retention # fungemia, bacteremia - h/o bacteremia due to coag negative Staph, probable contaminant as her WBC level improved initially without antibiotic - 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 improved. Probable manifestation of endocarditis. Pt declined MRI on 08/06/2017 - h/o infection of R toes due to pseudomonas. coagulase negative Staph likely a colonizer. resolved - h/o intertrigo of the groin, resolved with nystatin powder - h/o scabies, locally crusted lesion over L scapula, s/p permethrin cream and pGT ivermectin on 08/11/2017, 08/12/2017, 08/19/2017. Repeat skin scraping on 08/21/2017 was negative for scabies # psych, neuro - acute toxic metabolic encephalopathy - decreased hearing b/l - h/o critical illness polyneuropathy - anxiety/depression, bipolar d/o, seen by Psychiatry in the past - chronic pain syndrome - medical non-compliance: she would refuse her medications, treatment and straight catheterization at times # hematological, vascular - chronic anemia requiring blood transfusion intermittently - Macrocytic anemia - 3.1 cm AAA on imaging - PVD Recommendations: - Continue renally dosed meropenem for HCAP (05/13/2018-); no IV vancomycin due to acute on chronic renal disease. Will monitor CBC - Continue pGT vancomycin (05/11/2018-) and IV metronidazole (05/11/2018) for C diff colitis Management d/w [employer]IE[employer]OW[employer] OFFICERJAYANT Nelson and with Dr. Doyle Thank you Total Critical care time spent: 45 minutes. Consultation Date/Type/Reason Admit Date/Time May 06, 2018 at 17:38 Initial Consult Date 05/07/18 Type of Consult ID Requesting Provider: ROLAND GIRON MD Date/Time of Note DATE: 05/18/18 TIME: 16:50 24 HR Interval Summary Free Text/Dictation Per d/w JAYANT Nelson, the patient still having diarrhea, 2 episodes today. Patient received 1 u prbc with HD Has remained afebrile. Patient is unable to contribute to ROS d/t intubated Exam/Review of Systems Exam Vitals Vital Signs Date Temp Pulse Resp B/P (MAP) Pulse Ox O2 O2 Flow FiO2 Time Delivery Rate 05/18/18 97.6 102 21 121/89 97 Mechanical 16:00 (100) Ventilator 05/18/18 35 15:57 Intake and Output 05/17/18 05/17/18 05/18/18 1515:00 23:00 07:00 IntakeIntake Total 1270 ml 1334.20 ml 540.68 ml OutputOutput Total 450 ml 300 ml 320 ml BalanceBalance 820 ml 1034.20 ml 220.68 ml Allergies Coded Allergies shellfish derived (Unverified Allergy, Unknown, 05/06/18) Exam Constitutional: well developed, non-verbal, frail, obese, other (chronically debilitated, orally intubated and sedated) Head: normocephalic, atraumatic Eyes: nl conjunctiva, nl lids ENMT: nl external ears & nose, intubated (via ETT) Neck: other (old trach site with with dressing, clean dry and intact) Respiratory: diminished breath sounds, other (on ventilator support) Cardiovascular: regular rate and rhythm, nl pulses Gastrointestinal: soft, non-tender, bowel sounds; No distended Genitourinary - Female: other (Garza in place with yellow urine; HD catheter in R groin c/d, dressing loose, there is an HD machine at the bedside, she has just completed HD) Musculoskeletal: other (eschar on toes; bilateral foot drop) Extremities: edema (all four extremities) Neurological: other (sedated with Diprivan but opens eyes with verbal and tactile stimuli, +tracking, and falls easily back to sleep; no commands) Skin: nl turgor, dry, other (wounds- nurses notes and photos reviewed in chart) Results Result Diagram: 05/18/18 0430 05/18/18 0430 Results 24hrs Laboratory Tests Test 05/17/18 22:05 05/18/18 04:30 05/18/18 07:00 05/18/18 14:00 Sodium Level 138 139 Potassium Level 3.0 L 3.1 L Chloride Level 100 105 Carbon Dioxide 30 25 Level Anion Gap 8 9 Blood Urea 53 H 50 H Nitrogen Creatinine 1.30 H 1.17 H Est Glomerular Filtrat Rate mL/min Glucose Level 109 77 Calcium Level 7.7 L 7.1 L White Blood Count 7.8 Red Blood Count 2.07 L Hemoglobin 7.2 L Hematocrit 22.3 L Mean Corpuscular 107.7 H Volume Mean Corpuscular 34.8 H Hemoglobin Mean Corpuscular 32.3 Hemoglobin Concent Red Cell 17.2 H Distribution Width Platelet Count 149 Mean Platelet 9.7 Volume Immature 0.400 Granulocytes % Neutrophils % Segmented 77 Neutrophils % (Manual) Band Neutrophils % 7 H (Manual) Lymphocytes % Lymphocytes % 12 L (Manual) Monocytes % Monocytes % 1 (Manual) Eosinophils % Eosinophils % 3 (Manual) Basophils % Nucleated Red 0.0 Blood Cells % Immature 0.030 Granulocytes # Neutrophils # Neutrophils # 6.0 (Manual) Band Neutrophils # 0.5 Lymphocytes 0.9 (Manual) Lymphocytes # Monocytes # Monocytes # 0.0 L (Manual) Eosinophils # Basophils # Nucleated Red Blood Cells # Platelet Estimate NORMAL Giant Platelets 1 H Polychromasia 3+ Poikilocytosis 2+ Anisocytosis 3+ Microcytosis 1+ Macrocytosis 3+ Target Cells 1+ Ovalocytes 1+ Phosphorus Level 2.6 Magnesium Level 1.3 L Total Bilirubin 0.1 L Direct Bilirubin 0.00 Indirect Bilirubin 0.1 Aspartate Amino 15 Transf (AST/SGOT) Alanine 20 Aminotransferase ( ALT/SGPT) Alkaline 81 Phosphatase Total Protein 4.6 L Albumin 1.8 L Globulin 2.80 Albumin/Globulin 0.64 Ratio Blood Gas Specimen Blood arterial Source Arterial Blood 05/18/2018 7:15:44 Date Drawn AM Arterial Blood pH 7.469 H (Temp corrected) Arterial Blood 41.6 pCO2 (Temp correct) Arterial Blood pO2 92.7 H (Temp corrected) Arterial Blood 29.5 H HCO3 Arterial Blood 5.4 H Base Excess Arterial Blood 96.8 Oxygen Saturation Steven Test ACCEPTAB Arterial Blood Gas Right Radial Puncture Site Arterial 1.0 Blood Carboxyhemog lobin Arterial Blood 0.1 Methemoglobin Blood Gas A-a O2 108.5 H Differential Oxyhemoglobin 95.7 Percent Blood Gas 37.0 Temperature Blood Gas 20.0 Respiration Rate Blood Gas Actual 23 Respiration Rate Blood Gas Modality VENT - AC FiO2 35.0 Blood Gas Tidal 500.0 Volume Blood Gas Low PEEP 5.0 Setting Blood Gas Notified TM Whom Blood Gas Notified 05/18/2018 7:24:27 Time AM Stool Occult Blood NEGATIVE Imaging Imaging CXR 05/17/18 IMPRESSION: 1. No significant change in predominantly diffuse mixed interstitial opacities, representing edema/ARDS versus pneumonia. Medications Medication Current Medications IV Flush (NS 10 ml) 10 ml PRN IV ; Start 05/06/18 at 20:30 Ascorbic Acid (Vitamin C) 500 mg DAILY GTB Last administered on 05/18/18 09:26; Admin Dose 500 MG; Start 05/07/18 at 09:00 Albuterol/ Ipratropium (Duoneb) 3 ml Q2H RESP THERAPY PRN HHN SHORTNESS OF BREATH; Start 05/06/18 at 23:30 Lorazepam (Ativan Intensol) 0.5 mg Q6H PRN PEG ANXIETY; Start 05/06/18 at 23:30 Zinc Sulfate (Zinc Sulfate) 220 mg DAILY GTB Last administered on 05/18/18 09:27; Admin Dose 220 MG; Start 05/07/18 at 09:00 Ondansetron HCl (Zofran Tab) 4 mg Q6H PRN GTB NAUSEA AND/OR VOMITING; Start 05/07/18 at 00:15 Multivitamins (Multivitamin) 30 ml DAILY GTB Last administered on 05/18/18 09:26; Admin Dose 30 ML; Start 05/07/18 at 09:00 Epoetin Zen (Epogen (Esrd)) 20,000 units Tu@1700 SC Last administered on 05/12/18 17:36; Admin Dose 20,000 UNITS; Start 05/12/18 at 17:00 Norepinephrine 250 ml @ 1.875 mls/ hr TITRATE IV Last administered on 05/08/18 13:33; Admin Dose 33.75 MLS/HR; Start 05/08/18 at 03:00 Citric Acid/ Sodium Citrate (Bicitra) 30 ml Q8 PO Last administered on 05/18/18 14:46; Admin Dose 30 ML; Start 05/09/18 at 08:00 Phenylephrine HCl 80 mg/Dextrose 250 ml @ 18.75 mls/ hr TITRATE IV Last administered on 05/15/18 01:50; Admin Dose 5.63 MLS/HR; Start 05/09/18 at 12:30 Miscellaneous Information (Pending Santyl Order For Wound Care) This patient goldman... PRN PRN XX WOUND CARE; Start 05/09/18 at 17:00 Vancomycin HCl (Vancomycin Oral Syringe) 250 mg Q6 PO Last administered on 05/18/18 13:17; Admin Dose 250 MG; Start 05/12/18 at 00:00 Metronidazole 100 ml @ 100 mls/hr Q8 IVPB Last administered on 05/18/18 06:22; Admin Dose 100 MLS/HR; Start 05/11/18 at 20:00 Collagenase (Santyl) 1 applic DAILY TOP Last administered on 05/18/18 09:28; Admin Dose 1 APPLIC; Start 05/13/18 at 09:00 Propofol 100 ml @ 2.64 mls/hr Q12H IV Last administered on 05/18/18 15:06; Admin Dose 15.84 MLS/HR; Start 05/12/18 at 18:30 Albuterol (Ventolin Hfa) 4 puff Q6H RESP THERAPY INH Last administered on 05/18/18 16:17; Admin Dose 4 PUFF; Start 05/12/18 at 20:00 Ipratropium [place] (Atrovent Hfa) 4 puff Q6H RESP THERAPY INH Last administered on 05/18/18 16:16; Admin Dose 4 PUFF; Start 05/12/18 at 20:00 Meropenem/Sodium Chloride 50 ml @ 100 mls/hr Q12 IVPB Last administered on 05/18/18 10:55; Admin Dose 100 MLS/HR; Start 05/13/18 at 21:00 Cholestyramine Resin (Questran Light) 4 gm BID PO Last administered on 05/18/18 09:27; Admin Dose 4 GM; Start 05/14/18 at 21:00 Sodium Chloride 1,000 ml @ 50 mls/hr Q20H IV Last administered on 05/18/18 10:56; Admin Dose 50 MLS/HR; Start 05/15/18 at 08:00 Heparin Sodium (Porcine) (Heparin (1000 Units/ml)) 2,800 unit AFTER DIALYSIS CATHETER Last administered on 05/16/18 19:25; Admin Dose 2,800 UNIT; Start 05/16/18 at 16:30 KENA MÉNDEZ [employer] May 18, 2018 16:54
[2018-05-18] MEDS: HEPARIN 1000 UNITS/ML 10 ML INJ CATHETER SCH (18:07)
[2018-05-19] VITALS (38 sets, daily range): BP systolic 82–164; BP diastolic 40–90; PULSE 100–132; RESP 10–27
[2018-05-19] MEDS: IPRATROPIUM (HFA) 12.9 GM INHALER INH SCH ×4 (01:31→19:52)
[2018-05-19] MEDS: ALBUTEROL HFA 8 GM INHALER INH SCH ×4 (01:31→19:52)
[2018-05-19] MEDS: PROPOFOL 100 ML IV SCH ×3 (02:48→18:27)
[2018-05-19] MEDS: CITRIC ACID/NA CITRATE 30 ML CUP PO SCH ×3 (06:24→22:24)
[2018-05-19] MEDS: VANCOMYCIN HCL 250 MG/5ML POSYG PO SCH ×4 (06:25→18:22)
[2018-05-19] MEDS: metroNIDAZOLE 500 MG/NS (PMX) 100 ML IVPB SCH ×3 (06:25→21:07)
--- NOTE | 2018-05-19 07:15 | CONS ---
Assessment/Plan Assessment/Plan Hospital Course (Demo Recall) 73 yo female Interval hx: Tolerating tube feeds at 35cc/hr. Pt given one unit PRBC yesterday. Hgb up from 7.2 to 9.3. FOB negative. No signs of GI bleeding per RN. Yesterday three soft stools. No evidence of GI bleeding per RN. Propofol gtt 1. Malfunctioning gastrostomy tube. -resolved 2. Renal failure.- on HD 3. Sepsis. -with mx organisms at trach site wound 4. Chronic obstructive pulmonary disease. 5. Bipolar. 6. Paroxysmal atrial fibrillation. 7. Anemia of chronic disease. 8. CHF 9. Elevated alk phos with h/o hepatic venous congestion seen on abd CT in 2018 -resolved 10. Respiratory failure 11. Diarrhea improving with questran 12. UTI with mx organisms 13. H/O deep esophageal ulcer PLAN: Monitor residuals q 4 hours Continue pepcid and questran and vanco PO Monitor for signs of GI bleeding Pt examined and plan of care discussed with Dr Carolina Consultation Date/Type/Reason Admit Date/Time May 06, 2018 at 17:38 Initial Consult Date 05/10/18 Requesting Provider: ROLAND GIRON MD Date/Time of Note DATE: 05/19/18 TIME: 07:11 Exam/Review of Systems Exam Vitals Vital Signs Date Temp Pulse Resp B/P (MAP) Pulse Ox O2 O2 Flow FiO2 Time Delivery Rate 05/19/18 110 26 138/70 96 Mechanical 06:00 (92) Ventilator 05/19/18 30 05:30 05/19/18 98.5 04:00 Intake and Output 05/18/18 05/18/18 05/19/18 1515:00 23:00 07:00 IntakeIntake Total 1126.72 ml 863.08 ml 407 ml OutputOutput Total 245 ml 2305 ml 335 ml BalanceBalance 881.72 ml -1441.92 ml 72 ml Head: normocephalic Eyes: nl sclera Respiratory: diminished breath sounds Cardiovascular: other (sinus tachycardia) Gastrointestinal: soft, non-tender, other (g tube site clean and dry) Extremities: edema Neurological: other (propofol gtt) Results Result Diagram: 05/19/18 0430 05/19/18 0430 Results 24hrs Laboratory Tests Test 05/18/18 14:00 05/19/18 04:30 05/19/18 05:01 Stool Occult Blood NEGATIVE White Blood Count 8.6 Red Blood Count 2.77 #L Hemoglobin 9.3 #L Hematocrit 28.5 #L Mean Corpuscular Volume 102.9 H Mean Corpuscular Hemoglobin 33.6 H Mean Corpuscular 32.6 Hemoglobin Concent Red Cell Distribution Width 19.9 H Platelet Count 148 Mean Platelet Volume 10.0 Immature Granulocytes % 0.500 H Neutrophils % Lymphocytes % Monocytes % Eosinophils % Basophils % Nucleated Red Blood Cells % 0.0 Immature Granulocytes # 0.040 H Neutrophils # Lymphocytes # Monocytes # Eosinophils # Basophils # Nucleated Red Blood Cells # Sodium Level 140 Potassium Level 3.4 L Chloride Level 103 Carbon Dioxide Level 25 Anion Gap 12 Blood Urea Nitrogen 52 H Creatinine 1.24 H Est Glomerular Filtrat Rate mL/min Glucose Level 83 Calcium Level 7.7 L Phosphorus Level 3.2 Magnesium Level 1.6 L Lab Scanned Report BLOOD TRANSFUSION Medications Medication Current Medications IV Flush (NS 10 ml) 10 ml PRN IV ; Start 05/06/18 at 20:30 Ascorbic Acid (Vitamin C) 500 mg DAILY GTB Last administered on 05/18/18 09:26; Admin Dose 500 MG; Start 05/07/18 at 09:00 Albuterol/ Ipratropium (Duoneb) 3 ml Q2H RESP THERAPY PRN HHN SHORTNESS OF BREATH; Start 05/06/18 at 23:30 Lorazepam (Ativan Intensol) 0.5 mg Q6H PRN PEG ANXIETY; Start 05/06/18 at 23:30 Zinc Sulfate (Zinc Sulfate) 220 mg DAILY GTB Last administered on 05/18/18at 09:27; Admin Dose 220 MG; Start 05/07/18 at 09:00 Ondansetron HCl (Zofran Tab) 4 mg Q6H PRN GTB NAUSEA AND/OR VOMITING; Start 05/07/18 at 00:15 Multivitamins (Multivitamin) 30 ml DAILY GTB Last administered on 05/18/18 09:26; Admin Dose 30 ML; Start 05/07/18 at 09:00 Epoetin Zen (Epogen (Esrd)) 20,000 units Tu@1700 SC Last administered on 05/12/18at 17:36; Admin Dose 20,000 UNITS; Start 05/12/18 at 17:00 Norepinephrine 250 ml @ 1.875 mls/ hr TITRATE IV Last administered on 05/08/18 13:33; Admin Dose 33.75 MLS/HR; Start 05/08/18 at 03:00 Citric Acid/ Sodium Citrate (Bicitra) 30 ml Q8 PO Last administered on 05/19/18 06:24; Admin Dose 30 ML; Start 05/09/18 at 08:00 Phenylephrine HCl 80 mg/Dextrose 250 ml @ 18.75 mls/ hr TITRATE IV Last administered on 05/15/18 01:50; Admin Dose 5.63 MLS/HR; Start 05/09/18 at 12:30 Miscellaneous Information (Pending Santyl Order For Wound Care) This patient goldman... PRN PRN XX WOUND CARE; Start 05/09/18 at 17:00 Vancomycin HCl (Vancomycin Oral Syringe) 250 mg Q6 PO Last administered on 05/19/18 06:25; Admin Dose 250 MG; Start 05/12/18 at 00:00 Metronidazole 100 ml @ 100 mls/hr Q8 IVPB Last administered on 05/19/18 06:25; Admin Dose 100 MLS/HR; Start 05/11/18 at 20:00 Collagenase (Santyl) 1 applic DAILY TOP Last administered on 05/18/18 09:28; Admin Dose 1 APPLIC; Start 05/13/18 at 09:00 Propofol 100 ml @ 2.64 mls/hr Q12H IV Last administered on 05/19/18 02:48; Admin Dose 15.84 MLS/HR; Start 05/12/18 at 18:30 Albuterol (Ventolin Hfa) 4 puff Q6H RESP THERAPY INH Last administered on 05/19/18 01:31; Admin Dose 4 PUFF; Start 05/12/18 at 20:00 Ipratropium [place] (Atrovent Hfa) 4 puff Q6H RESP THERAPY INH Last administered on 05/19/18 01:31; Admin Dose 4 PUFF; Start 05/12/18 at 20:00 Meropenem/Sodium Chloride 50 ml @ 100 mls/hr Q12 IVPB Last administered on 05/18/18 20:57; Admin Dose 100 MLS/HR; Start 05/13/18 at 21:00 Cholestyramine Resin (Questran Light) 4 gm BID PO Last administered on 05/18/18at 20:57; Admin Dose 4 GM; Start 05/14/18 at 21:00 Heparin Sodium (Porcine) (Heparin (1000 Units/ml)) 2,800 unit AFTER DIALYSIS CATHETER Last administered on 05/18/18at 18:07; Admin Dose 2,800 UNIT; Start 05/16/18 at 16:30 Potassium Chloride (Potassium Chloride Pwd/Soln) 60 meq ONCE ONCE GTB ; Start 05/19/18 at 07:00; Stop 05/19/18 at 07:01; Status UNSHAHEEN MILES May 19, 2018 07:15
--- NOTE | 2018-05-19 07:54 | CONS ---
Assessment/Plan Assessment/Plan Assessment/Plan (Daily) Ventilator setting; AC of 20, tidal volume 500, PEEP of 5, 30% FiO2. Patient is currently on propofol at 30 mics per kilogram per minute. Assessment and recommendations; 1. Patient with history of prior respiratory failure status post recent decannulation of tracheostomy admitted for recurrent sepsis due to pneumonia as well as multiple decubitus ulcers growing multiple organisms. Patient currently on appropriate antimicrobial regimen. 2. Acute renal failure, on hemodialysis. 3. Anemia. 4. Thrombocytopenia. Continue current supportive care. Hold sedation to assess for possible weaning from ventilator. Patient likely will need to have a redo tracheostomy. Prognosis remains guarded. Consultation Date/Type/Reason Admit Date/Time May 06, 2018 at 17:38 Initial Consult Date 05/10/18 Type of Consult Pulmonary/critical care Requesting Provider: ROLAND GIRON MD Date/Time of Note DATE: 05/19/18 TIME: 07:51 24 HR Interval Summary Free Text/Dictation Patient's condition is critical but stable. Despite being off sedation patient is awake and does not appear to be in any distress. General exam; elderly female, on ventilator via endotracheal tube. Awake. Currently no distress. Exam/Review of Systems Exam Vitals Vital Signs Date Temp Pulse Resp B/P (MAP) Pulse Ox O2 O2 Flow FiO2 Time Delivery Rate 05/19/18 110 26 138/70 96 Mechanical 06:00 (92) Ventilator 05/19/18 30 05:30 05/19/18 98.5 04:00 Intake and Output 05/18/18 05/18/18 05/19/18 1414:59 22:59 06:59 IntakeIntake Total 1106.72 ml 932.92 ml 458 ml OutputOutput Total 255 ml 2295 ml 375 ml BalanceBalance 851.72 ml -1362.08 ml 83 ml Exam H EENT exam; supple neck, no JVD. No lymphadenopathy. Midline trachea. No thyromegaly. Patient has fair dentition. Dressing applied over prior tracheostomy site. Chest exam; diminished breath sounds bilaterally. S1-S2 audible, no murmurs. Regular rhythm. Abdomen exam; soft, no organomegaly. G-tube in place. Bowel sounds audible. Extremity exam; trace edema with patchy ecchymosis. MAIL SERVICE COORDINATOR exam; patient is awake but still under sedative effect. Results Result Diagram: 05/19/18 0430 05/19/18 0430 Results 24hrs Laboratory Tests Test 05/18/18 14:00 05/19/18 04:30 05/19/18 05:01 Stool Occult Blood NEGATIVE White Blood Count 8.6 Red Blood Count 2.77 #L Hemoglobin 9.3 #L Hematocrit 28.5 #L Mean Corpuscular Volume 102.9 H Mean Corpuscular Hemoglobin 33.6 H Mean Corpuscular 32.6 Hemoglobin Concent Red Cell Distribution Width 19.9 H Platelet Count 148 Mean Platelet Volume 10.0 Immature Granulocytes % 0.500 H Neutrophils % Segmented Neutrophils % (Manual) 78 H Band Neutrophils % (Manual) 6 H Lymphocytes % Lymphocytes % (Manual) 12 L Reactive Lymphocytes % (Manual) 1 H Monocytes % Monocytes % (Manual) 1 Eosinophils % Eosinophils % (Manual) 2 Basophils % Nucleated Red Blood Cells % 0.0 Immature Granulocytes # 0.040 H Neutrophils # Neutrophils # (Manual) 6.8 Band Neutrophils # 0.5 Lymphocytes (Manual) 1.0 Lymphocytes # Reactive Lymphocytes # 0.0 Monocytes # Monocytes # (Manual) 0.0 L Eosinophils # Basophils # Nucleated Red Blood Cells # Platelet Estimate NORMAL Giant Platelets 1 H Polychromasia 3+ Poikilocytosis 2+ Anisocytosis 1+ Microcytosis 1+ Sodium Level 140 Potassium Level 3.4 L Chloride Level 103 Carbon Dioxide Level 25 Anion Gap 12 Blood Urea Nitrogen 52 H Creatinine 1.24 H Est Glomerular Filtrat Rate mL/min Glucose Level 83 Calcium Level 7.7 L Phosphorus Level 3.2 Magnesium Level 1.6 L Lab Scanned Report BLOOD TRANSFUSION Medications Medication Current Medications IV Flush (NS 10 ml) 10 ml PRN IV ; Start 05/06/18 at 20:30 Ascorbic Acid (Vitamin C) 500 mg DAILY GTB Last administered on 05/18/18at 09:26; Admin Dose 500 MG; Start 05/07/18 at 09:00 Albuterol/ Ipratropium (Duoneb) 3 ml Q2H RESP THERAPY PRN HHN SHORTNESS OF BREATH; Start 05/06/18 at 23:30 Lorazepam (Ativan Intensol) 0.5 mg Q6H PRN PEG ANXIETY; Start 05/06/18 at 23:30 Zinc Sulfate (Zinc Sulfate) 220 mg DAILY GTB Last administered on 05/18/18at 09:27; Admin Dose 220 MG; Start 05/07/18 at 09:00 Ondansetron HCl (Zofran Tab) 4 mg Q6H PRN GTB NAUSEA AND/OR VOMITING; Start 05/07/18 at 00:15 Multivitamins (Multivitamin) 30 ml DAILY GTB Last administered on 05/18/18 09:26; Admin Dose 30 ML; Start 05/07/18 at 09:00 Epoetin Zen (Epogen (Esrd)) 20,000 units Tu@1700 SC Last administered on 05/12/18 17:36; Admin Dose 20,000 UNITS; Start 05/12/18 at 17:00 Norepinephrine 250 ml @ 1.875 mls/ hr TITRATE IV Last administered on 05/08/18 13:33; Admin Dose 33.75 MLS/HR; Start 05/08/18 at 03:00 Citric Acid/ Sodium Citrate (Bicitra) 30 ml Q8 PO Last administered on 05/19/18 06:24; Admin Dose 30 ML; Start 05/09/18 at 08:00 Phenylephrine HCl 80 mg/Dextrose 250 ml @ 18.75 mls/ hr TITRATE IV Last administered on 05/15/18 01:50; Admin Dose 5.63 MLS/HR; Start 05/09/18 at 12:30 Miscellaneous Information (Pending Santyl Order For Wound Care) This patient goldman... PRN PRN XX WOUND CARE; Start 05/09/18 at 17:00 Vancomycin HCl (Vancomycin Oral Syringe) 250 mg Q6 PO Last administered on 05/19/18 06:25; Admin Dose 250 MG; Start 05/12/18 at 00:00 Metronidazole 100 ml @ 100 mls/hr Q8 IVPB Last administered on 05/19/18 06:25; Admin Dose 100 MLS/HR; Start 05/11/18 at 20:00 Collagenase (Santyl) 1 applic DAILY TOP Last administered on 05/18/18 09:28; Admin Dose 1 APPLIC; Start 05/13/18 at 09:00 Propofol 100 ml @ 2.64 mls/hr Q12H IV Last administered on 05/19/18 02:48; Admin Dose 15.84 MLS/HR; Start 05/12/18 at 18:30 Albuterol (Ventolin Hfa) 4 puff Q6H RESP THERAPY INH Last administered on 05/19/18 01:31; Admin Dose 4 PUFF; Start 05/12/18 at 20:00 Ipratropium [place] (Atrovent Hfa) 4 puff Q6H RESP THERAPY INH Last administered on 05/19/18 01:31; Admin Dose 4 PUFF; Start 05/12/18 at 20:00 Meropenem/Sodium Chloride 50 ml @ 100 mls/hr Q12 IVPB Last administered on 05/18/18 20:57; Admin Dose 100 MLS/HR; Start 05/13/18 at 21:00 Cholestyramine Resin (Questran Light) 4 gm BID PO Last administered on 05/18/18 20:57; Admin Dose 4 GM; Start 05/14/18 at 21:00 Heparin Sodium (Porcine) (Heparin (1000 Units/ml)) 2,800 unit AFTER DIALYSIS CATHETER Last administered on 05/18/18 18:07; Admin Dose 2,800 UNIT; Start 05/16/18 at 16:30 Potassium Chloride (Potassium Chloride Pwd/Soln) 60 meq ONCE ONCE GTB ; Start 05/19/18 at 08:30; Stop 05/19/18 at 08:31 ELOISA LAURA May 19, 2018 07:54
[2018-05-19] MEDS ORDERED: POTASSIUM CHLORIDE 20 MEQ POWDER FOR ORAL SOLN GTB ONE (08:30)
[2018-05-19] MEDS ORDERED: METOLAZONE 10 MG TAB PO ONE (08:30)
[2018-05-19] MEDS: MEROPENEM 500MG/50 ML (PMX) 50 ML IVPB SCH (08:30)
--- NOTE | 2018-05-19 08:37 | PN ---
DATE: 05/19/2018 SUBJECTIVE: The patient remains in serious condition, on full ventilatory support. The patient had hemodialysis yesterday, tolerated well. No other events noted. OBJECTIVE: VITAL SIGNS: Blood pressure is 138/70, respirations 26, pulse 110, temperature 98.5. HEENT: Head is normocephalic. NECK: Supple. HEART: Regular rate. LUNGS: Show diminished breath sounds at the base. ABDOMEN: Soft, nontender to palpation without rebound or guarding. EXTREMITIES: Negative for clubbing, cyanosis. Positive edema, diffuse anasarca. DERMATOLOGIC: No rashes. MUSCULOSKELETAL: No joint effusion. NEUROLOGIC: No change in exam. MEDICATIONS: Reviewed. LABORATORY DATA: Reviewed. ASSESSMENT AND PLAN: 1. Nonoliguric acute kidney injury on top of chronic kidney disease with previous baseline creatinin e of 2.5 mg/dL. Etiology of acute kidney injury is secondary to shock, sepsis. The patient was init iated on hemodialysis, solute clearance and volume removal. The patient's urinary output has been in creasing. Plan is to increase diuretic regimen. The patient will be placed on Lasix 40 mg IV q.12h. We will add metolazone to augment diuresis. Monitor I's and O's and electrolytes closely. 2. Hypokalemia and hypomagnesemia. We will replete. 3. Anemia. Continue to monitor hemoglobin and hematocrit levels. 4. Mineral bone disorder, monitor calcium and phosphorus levels. 5. Sepsis, status post shock secondary to urinary tract infection, pneumonia. Continue current anti biotic regimen. Continue pressor support. 6. Tachyarrhythmia. Continue to monitor. 7. Ventilator-dependent respiratory failure. Vent settings and ABG was reviewed. Continue to monit or. 8. Dysphagia, status post PEG. Continue tube feeding. 9. Acute encephalopathy, etiology is toxic metabolic. 10. Decompensated heart failure. Continue medical management. Continue diuretic therapy. Continue ultrafiltration with dialysis. Please note I spent over 30 minutes of critical care time with this patient. Dictated By: JEANA BANSAL DO NR/NTS Conf#: [id number] DID#: [id number] CC: QUINTEN UMAÑA MD; ROLAND GIRON MD;*EndCC*
[2018-05-19] MEDS: FUROSEMIDE 40 MG INJ IV SCH ×2 (08:38→18:22)
[2018-05-19] MEDS: COLLAGENASE 5 GM (UD JAR) TOP SCH (08:43)
[2018-05-19] MEDS: CHOLESTYRAMINE (LIGHT) 4 GM PACKET PO SCH ×2 (08:43→20:00)
[2018-05-19] MEDS: MULTIVITAMINS 30 ML CUP GTB SCH (08:43)
[2018-05-19] MEDS: ASCORBIC ACID 500 MG TAB GTB SCH (08:43)
[2018-05-19] MEDS: ZINC SULFATE 220 MG CAP GTB SCH (08:43)
[2018-05-19] MEDS: BALSAM PERU/CASTOR OIL 60 GM TUBE TOP SCH ×2 (08:43→20:00)
[2018-05-19] MEDS ORDERED: MAGNESIUM SULFATE 2 GM/50 ML 50 ML IVPB ONE (09:00)
[2018-05-19] MEDS ORDERED: LORAZEPAM 1 MG TAB PEG PRN (11:00)
[2018-05-19] MEDS ORDERED: morphine 2 MG INJ IV PRN (11:00)
--- NOTE | 2018-05-19 14:38 | CONS ---
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 colonization of the airway by pseudomonas and ESBL+klebsiella - h/o possible, recurrent HCAP due to pseudomonas and ESBL+klebsiella - h/o recurrent HCAP due to MRSA and Enterobacter (culture of tracheal aspirate on 07/16/2017 that was collected at [facility]) . Pt took vancomycin and ceftazidime - h/o acute respiratory distress post-thoracentesis, resolved - h/o thoracentesis on 07/18/2017, transudative (protein <2, LDH 279) - h/o bleeding from the trach site - h/o septic shock due to pneumonia, ARDS, bacteremia, fungemia - h/o ARDS - h/o smoking - COPD - ILD # Cardiac - PAF, currently sinus tachycardia # GI - C diff colitis, diagnosed on 05/11/2018 - h/o intermittent diarrhea, Pt had multiple negative C. diff tests at [facility] at OSH in the past - dysphagia - h/o PEG placement 06/13/2018 - protein calorie malnutrition - h/o coffee ground emesis/UGIB 12/23/2017 due to deep ulceration of distal esophagus and gastritis on EGD 12/26/2017. No e/o H. pylori - h/o possible appendicitis on CT on 11/22/2017, Pt took ertapenem (11/24/2017- 12/01/2017) - h/o extensive adhesions lower abdominal and pelvis between small bowel to each other and to colon and to abdominal wall, anterior pelvic wall chronic abscess secondary to probably an old perforated diverticulitis, torsion of small bowel around these dense adhesion causing multiple obstructive points - h/o laparoscopic exploration and extensive lysis of adhesions and drainage of anterior pelvic wall abscess 09/16/2017. Cultures were negative, no e/o malignancy. Pt took pip/tazo (09/16/2017-09/26/2017) - h/o partial obstruction mid jejunum in L anterior central pelvis with suggestion of a 3 cm soft tissue mass on CT 08/28/2017 - h/o internal stomal deep ulcer behind the internal bumper, gastritis and esophagitis, Rodriguez's cannot be ruled out, per EGD with biopsy 07/23/2017 - h/o GIB s/p flex sig showed polyp; stool OB negative on 06/29/17 - h/o stool OB positive status - h/o SBO and ileus due to pain meds - h/o EGD and exchange of PEG on 09/01/2017 - h/o mildly elevated CEA # renal/ - recurrent NATHAN on CKD - started on HD on 05/15/2018, via Kem in R groin - 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 His strain of CRE was sensitive to colistin, Avycaz, and Vabomere but resistant to Zerbaxa (reported on 05/19/2018) - Hyponatremia - Hyperkalemia, now hypokalemia - Metabolic acidosis - adrenal insufficiency - h/o vaginal bleed - h/o colonization of urinary tract by ESBL+klebsiella, VRE - h/o recurrent, symptomatic UTI due to carbapenem-resistant kleb (MDR strain) per urine culture 10/04/17, 10/09/17, 10/21/2017, P took colistin (10/09/2017- 10/15/2017), fosfomycin for carbapenemase-producing klebsiella and VRE on and 10/28/2017 - h/o funguria - h/o urinary retention # fungemia, bacteremia - h/o bacteremia due to coag negative Staph, probable contaminant as her WBC level improved initially without antibiotic - 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 improved. Probable manifestation of endocarditis. Pt declined MRI on 08/06/2017 - h/o infection of R toes due to pseudomonas. coagulase negative Staph likely a colonizer. resolved - h/o intertrigo of the groin, resolved with nystatin powder - h/o scabies, locally crusted lesion over L scapula, s/p permethrin cream and pGT ivermectin on 08/11/2017, 08/12/2017, 08/19/2017. Repeat skin scraping on 08/21/2017 was negative for scabies # psych, neuro - acute toxic metabolic encephalopathy - decreased hearing b/l - h/o critical illness polyneuropathy - anxiety/depression, bipolar d/o, seen by Psychiatry in the past - chronic pain syndrome - h/o medical non-compliance: she would refuse her medications, treatment and straight catheterization at times # hematological, vascular - chronic anemia requiring blood transfusion intermittently - Macrocytic anemia - 3.1 cm AAA on imaging - PVD recommendations: - d/c renally dosed meropenem for HCAP (05/13/2018-05/19/2018) - continue pGT vancomycin (05/11/2018-) and IV metronidazole (05/11/2018-) for C diff colitis, plan for 10 days Consultation Date/Type/Reason Admit Date/Time May 06, 2018 at 17:38 Initial Consult Date 05/10/18 Type of Consult ID Requesting Provider: ROLAND GIRON MD Date/Time of Note DATE: 05/19/18 TIME: 14:34 24 HR Interval Summary Subjective hx not possible: pt non-verbal, pt critical, pt critical status Exam/Review of Systems Exam Vitals Vital Signs Date Temp Pulse Resp B/P (MAP) Pulse Ox O2 O2 Flow FiO2 Time Delivery Rate 05/19/18 108 12:00 05/19/18 24 100 30 11:30 05/19/18 158/76 Mechanical 10:00 (103) Ventilator 05/19/18 99.2 08:00 Intake and Output 05/18/18 05/18/18 05/19/18 1515:00 23:00 07:00 IntakeIntake Total 1126.72 ml 863.08 ml 442 ml OutputOutput Total 245 ml 2305 ml 410 ml BalanceBalance 881.72 ml -1441.92 ml 32 ml Constitutional: non-verbal, frail Psych: confusion Head: normocephalic, atraumatic Eyes: nl conjunctiva, nl lids ENMT: mucosa pink and moist, intubated Neck: other (trach site is dressed) Respiratory: crackles/rales Cardiovascular: regular rate and rhythm, nl pulses, edema Gastrointestinal: soft, non-tender Genitourinary - Female: other (FC) Musculoskeletal: No swelling Extremities: edema, pitting pedal edema Neurological: unresponsive, other (sedated) Skin: ecchymosis Results Result Diagram: 05/19/18 0430 05/19/18 0430 Results 24hrs Laboratory Tests Test 05/19/18 04:30 05/19/18 05:01 05/19/18 08:59 White Blood Count 8.6 Red Blood Count 2.77 #L Hemoglobin 9.3 #L Hematocrit 28.5 #L Mean Corpuscular Volume 102.9 H Mean Corpuscular Hemoglobin 33.6 H Mean Corpuscular 32.6 Hemoglobin Concent Red Cell Distribution Width 19.9 H Platelet Count 148 Mean Platelet Volume 10.0 Immature Granulocytes % 0.500 H Neutrophils % Segmented Neutrophils 78 H % (Manual) Band Neutrophils % (Manual) 6 H Lymphocytes % Lymphocytes % (Manual) 12 L Reactive Lymphocytes 1 H % (Manual) Monocytes % Monocytes % (Manual) 1 Eosinophils % Eosinophils % (Manual) 2 Basophils % Nucleated Red Blood Cells % 0.0 Immature Granulocytes # 0.040 H Neutrophils # Neutrophils # (Manual) 6.8 Band Neutrophils # 0.5 Lymphocytes (Manual) 1.0 Lymphocytes # Reactive Lymphocytes # 0.0 Monocytes # Monocytes # (Manual) 0.0 L Eosinophils # Basophils # Nucleated Red Blood Cells # Platelet Estimate NORMAL Giant Platelets 1 H Polychromasia 3+ Poikilocytosis 2+ Anisocytosis 1+ Microcytosis 1+ Sodium Level 140 Potassium Level 3.4 L Chloride Level 103 Carbon Dioxide Level 25 Anion Gap 12 Blood Urea Nitrogen 52 H Creatinine 1.24 H Est Glomerular Filtrat Rate mL/min Glucose Level 83 Calcium Level 7.7 L Phosphorus Level 3.2 Magnesium Level 1.6 L Lab Scanned Report BLOOD TRANSFUSION REFERENCE LAB Medications Medication Current Medications IV Flush (NS 10 ml) 10 ml PRN IV ; Start 05/06/18 at 20:30 Ascorbic Acid (Vitamin C) 500 mg DAILY GTB Last administered on 05/19/18 08:43; Admin Dose 500 MG; Start 05/07/18 at 09:00 Albuterol/ Ipratropium (Duoneb) 3 ml Q2H RESP THERAPY PRN HHN SHORTNESS OF BREATH; Start 05/06/18 at 23:30 Zinc Sulfate (Zinc Sulfate) 220 mg DAILY GTB Last administered on 05/19/18 08:43; Admin Dose 220 MG; Start 05/07/18 at 09:00 Ondansetron HCl (Zofran Tab) 4 mg Q6H PRN GTB NAUSEA AND/OR VOMITING; Start 05/07/18 at 00:15 Multivitamins (Multivitamin) 30 ml DAILY GTB Last administered on 05/19/18 08:43; Admin Dose 30 ML; Start 05/07/18 at 09:00 Epoetin Zen (Epogen (Esrd)) 20,000 units Tu@1700 SC Last administered on 05/12/18 17:36; Admin Dose 20,000 UNITS; Start 05/12/18 at 17:00 Norepinephrine 250 ml @ 1.875 mls/ hr TITRATE IV Last administered on 05/08/18 13:33; Admin Dose 33.75 MLS/HR; Start 05/08/18 at 03:00 Citric Acid/ Sodium Citrate (Bicitra) 30 ml Q8 PO Last administered on 05/19/18 13:43; Admin Dose 30 ML; Start 05/09/18 at 08:00 Phenylephrine HCl 80 mg/Dextrose 250 ml @ 18.75 mls/ hr TITRATE IV Last administered on 05/15/18 01:50; Admin Dose 5.63 MLS/HR; Start 05/09/18 at 12:30 Miscellaneous Information (Pending Santyl Order For Wound Care) This patient goldman... PRN PRN XX WOUND CARE; Start 05/09/18 at 17:00 Vancomycin HCl (Vancomycin Oral Syringe) 250 mg Q6 PO Last administered on 05/19/18 13:24; Admin Dose 250 MG; Start 05/12/18 at 00:00 Metronidazole 100 ml @ 100 mls/hr Q8 IVPB Last administered on 05/19/18 13:43; Admin Dose 100 MLS/HR; Start 05/11/18 at 20:00 Collagenase (Santyl) 1 applic DAILY TOP Last administered on 05/19/18 08:43; Admin Dose 1 APPLIC; Start 05/13/18 at 09:00 Propofol 100 ml @ 2.64 mls/hr Q12H IV Last administered on 05/19/18 13:11; Admin Dose 15.84 MLS/HR; Start 05/12/18 at 18:30 Albuterol (Ventolin Hfa) 4 puff Q6H RESP THERAPY INH Last administered on 05/19/18 09:40; Admin Dose 4 PUFF; Start 05/12/18 at 20:00 Ipratropium [place] (Atrovent Hfa) 4 puff Q6H RESP THERAPY INH Last administered on 05/19/18 09:40; Admin Dose 4 PUFF; Start 05/12/18 at 20:00 Meropenem/Sodium Chloride 50 ml @ 100 mls/hr Q12 IVPB Last administered on 05/19/18 08:30; Admin Dose 100 MLS/HR; Start 05/13/18 at 21:00 Cholestyramine Resin (Questran Light) 4 gm BID PO Last administered on 05/19/18 08:43; Admin Dose 4 GM; Start 05/14/18 at 21:00 Heparin Sodium (Porcine) (Heparin (1000 Units/ml)) 2,800 unit AFTER DIALYSIS CATHETER Last administered on 05/18/18 18:07; Admin Dose 2,800 UNIT; Start 05/16/18 at 16:30 Furosemide (Lasix) 40 mg BID DIURETICS IV Last administered on 05/19/18 08:38; Admin Dose 40 MG; Start 05/19/18 at 09:00 Morphine Sulfate (morphine) 2 mg Q4H PRN IV SEVERE PAIN LEVEL 7-10; Start 05/19/18 at 11:00 Lorazepam (Ativan) 0.5 mg Q6H PRN PEG ANXIETY; Start 05/19/18 at 11:00 CELESTINE MURPHY M.D. May 19, 2018 14:38
--- NOTE | 2018-05-19 15:02 | PN ---
Date/Time of Note Date/Time of Note DATE: 05/19/18 TIME: 14:55 Assessment/Plan VTE Prophylaxis Risk score (from Ns)>0 risk: 13 SCD applied (from Ns): Yes Pharmacological prophylaxis: heparin Lines/Catheters [facility]from [facility] KASANDRA CATHETER Urinary Cath still in place: Yes Reason Cath still needed: urinary retention Assessment/Plan Hospital Course Patient unable to tolerate weaning trial, continues on ventilatory support and propofol drip. Patient is status post blood transfusion, hemoglobin is 9.3. Still continues to have diarrhea, the patient is on Vanco day G-tube metronidazole and Questran for C. difficile infection. Electrolytes were replaced by our nephrology colleagues. Assessment/Plan -Septic shock secondary to urinary tract infection, anterior neck soft tissue infection, and C. difficile colitis, resolving. Continue antibiotics per ID. Dr. Black is following in infection disease consultation. -Acute respiratory failure requiring intubation and ventilatory support. Dr. Lambert is following in pulmonology consultation. -Acute kidney injury on chronic kidney disease. Started on HD this admission. Dr. Mckeon is following in nephrology consultation. -Anemia of chronic inflammation, stool for OB is negative, status post blood transfusion. Continue Epogen. -Metabolic acidosis, resolved. -Acute diastolic congestive heart failure. Dr. Scanlon is following in cardiology consultation. -Paroxysmal atrial fibrillation, remains sinus rhythm -COPD -Dysphagia with PEG. -G-tube mild malfunction, changed by GI Dr. Carolina is following in gastroenterology consultation. -Obesity Critical care time spent is 30 minutes. Further recommendations based on clinical course. Plan of care discussed with Dr. Eisenberg. Result Diagram: 05/19/18 0430 05/19/18 0430 Results 24hrs Laboratory Tests Test 05/19/18 04:30 05/19/18 05:01 05/19/18 08:59 White Blood Count 8.6 Red Blood Count 2.77 #L Hemoglobin 9.3 #L Hematocrit 28.5 #L Mean Corpuscular Volume 102.9 H Mean Corpuscular Hemoglobin 33.6 H Mean Corpuscular 32.6 Hemoglobin Concent Red Cell Distribution Width 19.9 H Platelet Count 148 Mean Platelet Volume 10.0 Immature Granulocytes % 0.500 H Neutrophils % Segmented Neutrophils 78 H % (Manual) Band Neutrophils % (Manual) 6 H Lymphocytes % Lymphocytes % (Manual) 12 L Reactive Lymphocytes 1 H % (Manual) Monocytes % Monocytes % (Manual) 1 Eosinophils % Eosinophils % (Manual) 2 Basophils % Nucleated Red Blood Cells % 0.0 Immature Granulocytes # 0.040 H Neutrophils # Neutrophils # (Manual) 6.8 Band Neutrophils # 0.5 Lymphocytes (Manual) 1.0 Lymphocytes # Reactive Lymphocytes # 0.0 Monocytes # Monocytes # (Manual) 0.0 L Eosinophils # Basophils # Nucleated Red Blood Cells # Platelet Estimate NORMAL Giant Platelets 1 H Polychromasia 3+ Poikilocytosis 2+ Anisocytosis 1+ Microcytosis 1+ Sodium Level 140 Potassium Level 3.4 L Chloride Level 103 Carbon Dioxide Level 25 Anion Gap 12 Blood Urea Nitrogen 52 H Creatinine 1.24 H Est Glomerular Filtrat Rate mL/min Glucose Level 83 Calcium Level 7.7 L Phosphorus Level 3.2 Magnesium Level 1.6 L Lab Scanned Report BLOOD TRANSFUSION REFERENCE LAB Exam/Review of Systems Exam Vitals Vital Signs Date Temp Pulse Resp B/P (MAP) Pulse Ox O2 O2 Flow FiO2 Time Delivery Rate 05/19/18 108 12:00 05/19/18 24 100 30 11:30 05/19/18 158/76 Mechanical 10:00 (103) Ventilator 05/19/18 99.2 08:00 Intake and Output 05/18/18 05/18/18 05/19/18 1515:00 23:00 07:00 IntakeIntake Total 1126.72 ml 863.08 ml 442 ml OutputOutput Total 245 ml 2305 ml 410 ml BalanceBalance 881.72 ml -1441.92 ml 32 ml Exam Constitutional: frail, orally intubated Respiratory: diminished breath sounds Cardiovascular: regular rate and rhythm Gastrointestinal: soft, tender, other (G-tube) Musculoskeletal: nl extremities to inspection Extremities: normal pulses Neurological: sedated Results Results 24hrs Laboratory Tests Test 05/19/18 04:30 05/19/18 05:01 05/19/18 08:59 White Blood Count 8.6 Red Blood Count 2.77 #L Hemoglobin 9.3 #L Hematocrit 28.5 #L Mean Corpuscular Volume 102.9 H Mean Corpuscular Hemoglobin 33.6 H Mean Corpuscular 32.6 Hemoglobin Concent Red Cell Distribution Width 19.9 H Platelet Count 148 Mean Platelet Volume 10.0 Immature Granulocytes % 0.500 H Neutrophils % Segmented Neutrophils 78 H % (Manual) Band Neutrophils % (Manual) 6 H Lymphocytes % Lymphocytes % (Manual) 12 L Reactive Lymphocytes 1 H % (Manual) Monocytes % Monocytes % (Manual) 1 Eosinophils % Eosinophils % (Manual) 2 Basophils % Nucleated Red Blood Cells % 0.0 Immature Granulocytes # 0.040 H Neutrophils # Neutrophils # (Manual) 6.8 Band Neutrophils # 0.5 Lymphocytes (Manual) 1.0 Lymphocytes # Reactive Lymphocytes # 0.0 Monocytes # Monocytes # (Manual) 0.0 L Eosinophils # Basophils # Nucleated Red Blood Cells # Platelet Estimate NORMAL Giant Platelets 1 H Polychromasia 3+ Poikilocytosis 2+ Anisocytosis 1+ Microcytosis 1+ Sodium Level 140 Potassium Level 3.4 L Chloride Level 103 Carbon Dioxide Level 25 Anion Gap 12 Blood Urea Nitrogen 52 H Creatinine 1.24 H Est Glomerular Filtrat Rate mL/min Glucose Level 83 Calcium Level 7.7 L Phosphorus Level 3.2 Magnesium Level 1.6 L Lab Scanned Report BLOOD TRANSFUSION REFERENCE LAB Medications Medication Current Medications IV Flush (NS 10 ml) 10 ml PRN IV ; Start 05/06/18 at 20:30 Ascorbic Acid (Vitamin C) 500 mg DAILY GTB Last administered on 05/19/18 08:43; Admin Dose 500 MG; Start 05/07/18 at 09:00 Albuterol/ Ipratropium (Duoneb) 3 ml Q2H RESP THERAPY PRN HHN SHORTNESS OF BREATH; Start 05/06/18 at 23:30 Zinc Sulfate (Zinc Sulfate) 220 mg DAILY GTB Last administered on 05/19/18 08:43; Admin Dose 220 MG; Start 05/07/18 at 09:00 Ondansetron HCl (Zofran Tab) 4 mg Q6H PRN GTB NAUSEA AND/OR VOMITING; Start 05/07/18 at 00:15 Multivitamins (Multivitamin) 30 ml DAILY GTB Last administered on 05/19/18 08:43; Admin Dose 30 ML; Start 05/07/18 at 09:00 Epoetin Zen (Epogen (Esrd)) 20,000 units Tu@1700 SC Last administered on 05/12/18 17:36; Admin Dose 20,000 UNITS; Start 05/12/18 at 17:00 Norepinephrine 250 ml @ 1.875 mls/ hr TITRATE IV Last administered on 05/08/18 13:33; Admin Dose 33.75 MLS/HR; Start 05/08/18 at 03:00 Citric Acid/ Sodium Citrate (Bicitra) 30 ml Q8 PO Last administered on 05/19/18 13:43; Admin Dose 30 ML; Start 05/09/18 at 08:00 Phenylephrine HCl 80 mg/Dextrose 250 ml @ 18.75 mls/ hr TITRATE IV Last administered on 05/15/18 01:50; Admin Dose 5.63 MLS/HR; Start 05/09/18 at 12:30 Miscellaneous Information (Pending Santyl Order For Wound Care) This patient goldman... PRN PRN XX WOUND CARE; Start 05/09/18 at 17:00 Vancomycin HCl (Vancomycin Oral Syringe) 250 mg Q6 PO Last administered on 05/19/18 13:24; Admin Dose 250 MG; Start 05/12/18 at 00:00 Metronidazole 100 ml @ 100 mls/hr Q8 IVPB Last administered on 05/19/18 13:43; Admin Dose 100 MLS/HR; Start 05/11/18 at 20:00 Collagenase (Santyl) 1 applic DAILY TOP Last administered on 05/19/18 08:43; Admin Dose 1 APPLIC; Start 05/13/18 at 09:00 Propofol 100 ml @ 2.64 mls/hr Q12H IV Last administered on 05/19/18 13:11; Admin Dose 15.84 MLS/HR; Start 05/12/18 at 18:30 Albuterol (Ventolin Hfa) 4 puff Q6H RESP THERAPY INH Last administered on 05/19/18 09:40; Admin Dose 4 PUFF; Start 05/12/18 at 20:00 Ipratropium [place] (Atrovent Hfa) 4 puff Q6H RESP THERAPY INH Last administered on 05/19/18 09:40; Admin Dose 4 PUFF; Start 05/12/18 at 20:00 Cholestyramine Resin (Questran Light) 4 gm BID PO Last administered on 05/19/18 08:43; Admin Dose 4 GM; Start 05/14/18 at 21:00 Heparin Sodium (Porcine) (Heparin (1000 Units/ml)) 2,800 unit AFTER DIALYSIS CATHETER Last administered on 05/18/18 18:07; Admin Dose 2,800 UNIT; Start 05/16/18 at 16:30 Furosemide (Lasix) 40 mg BID DIURETICS IV Last administered on 05/19/18at 08:38; Admin Dose 40 MG; Start 05/19/18 at 09:00 Morphine Sulfate (morphine) 2 mg Q4H PRN IV SEVERE PAIN LEVEL 7-10; Start 05/19/18 at 11:00 Lorazepam (Ativan) 0.5 mg Q6H PRN PEG ANXIETY; Start 05/19/18 at 11:00 GRISELDA DENNIS May 19, 2018 15:02
[2018-05-19] MEDS ORDERED: EPOETIN ALFA-EPBX (ESRD) 10,000 UNIT/ML VIAL SC SCH (17:00)
[2018-05-19] MEDS: EPOETIN ALFA-EPBX (ESRD) 10,000 UNIT/ML VIAL SC SCH (18:23)
--- NOTE | 2018-05-19 21:43 | CONS ---
Assessment/Plan Assessment/Plan Hospital Course (Demo Recall) Septic as well as hemorrhagic shock Hypotension, off IV pressor and improving Acute respiratory failure status post intubation Acute blood loss anemia Septic shock and hemorrhagic shock History of respiratory failure status post decannulation Preserved ejection fraction echocardiogram 05/10/2018 Paroxysmal atrial fibrillation, currently sinus rhythm Acute kidney injury -BP overall improved -Vent management as per pulmonary -Fluid management and electrolytes as per renal -Hold all antihypertensives and nephrotoxic medications at the current time -Antibiotics as per infectious disease Consultation Date/Type/Reason Admit Date/Time May 06, 2018 at 17:38 Initial Consult Date 05/10/18 Type of Consult Cardiology Requesting Provider: ROLAND GIRON MD Date/Time of Note DATE: 05/19/18 TIME: 21:42 24 HR Interval Summary Free Text/Dictation pt seen and examined Subjective hx not possible: pt critical status Exam/Review of Systems Vital Signs Vitals Vital Signs Date Temp Pulse Resp B/P (MAP) Pulse Ox O2 O2 Flow FiO2 Time Delivery Rate 05/19/18 30 20:20 05/19/18 99.3 109 23 126/66 Mechanical 20:00 (86) Ventilator 05/19/18 98 19:53 Intake and Output 05/18/18 05/18/18 05/19/18 1414:59 22:59 06:59 IntakeIntake Total 1106.72 ml 932.92 ml 458 ml OutputOutput Total 255 ml 2295 ml 375 ml BalanceBalance 851.72 ml -1362.08 ml 83 ml Exam Exam sedated Head: normocephalic ENMT: intubated Respiratory: other (course bs) Cardiovascular: regular rate and rhythm (s1s2) Gastrointestinal: soft, non-tender, bowel sounds Extremities: edema Labs Result Diagram: 05/19/18 0430 05/19/18 0430 Results 24hrs Laboratory Tests Test 05/19/18 04:30 05/19/18 05:01 05/19/18 08:59 White Blood Count 8.6 Red Blood Count 2.77 #L Hemoglobin 9.3 #L Hematocrit 28.5 #L Mean Corpuscular Volume 102.9 H Mean Corpuscular Hemoglobin 33.6 H Mean Corpuscular 32.6 Hemoglobin Concent Red Cell Distribution Width 19.9 H Platelet Count 148 Mean Platelet Volume 10.0 Immature Granulocytes % 0.500 H Neutrophils % Segmented Neutrophils 78 H % (Manual) Band Neutrophils % (Manual) 6 H Lymphocytes % Lymphocytes % (Manual) 12 L Reactive Lymphocytes 1 H % (Manual) Monocytes % Monocytes % (Manual) 1 Eosinophils % Eosinophils % (Manual) 2 Basophils % Nucleated Red Blood Cells % 0.0 Immature Granulocytes # 0.040 H Neutrophils # Neutrophils # (Manual) 6.8 Band Neutrophils # 0.5 Lymphocytes (Manual) 1.0 Lymphocytes # Reactive Lymphocytes # 0.0 Monocytes # Monocytes # (Manual) 0.0 L Eosinophils # Basophils # Nucleated Red Blood Cells # Platelet Estimate NORMAL Giant Platelets 1 H Polychromasia 3+ Poikilocytosis 2+ Anisocytosis 1+ Microcytosis 1+ Sodium Level 140 Potassium Level 3.4 L Chloride Level 103 Carbon Dioxide Level 25 Anion Gap 12 Blood Urea Nitrogen 52 H Creatinine 1.24 H Est Glomerular Filtrat Rate mL/min Glucose Level 83 Calcium Level 7.7 L Phosphorus Level 3.2 Magnesium Level 1.6 L Lab Scanned Report BLOOD TRANSFUSION REFERENCE LAB Medications Medications Current Medications IV Flush (NS 10 ml) 10 ml PRN IV ; Start 05/06/18 at 20:30 Ascorbic Acid (Vitamin C) 500 mg DAILY GTB Last administered on 05/19/18 08:43; Admin Dose 500 MG; Start 05/07/18 at 09:00 Albuterol/ Ipratropium (Duoneb) 3 ml Q2H RESP THERAPY PRN HHN SHORTNESS OF BREATH; Start 05/06/18 at 23:30 Zinc Sulfate (Zinc Sulfate) 220 mg DAILY GTB Last administered on 05/19/18 08:43; Admin Dose 220 MG; Start 05/07/18 at 09:00 Ondansetron HCl (Zofran Tab) 4 mg Q6H PRN GTB NAUSEA AND/OR VOMITING; Start 05/07/18 at 00:15 Multivitamins (Multivitamin) 30 ml DAILY GTB Last administered on 05/19/18 08:43; Admin Dose 30 ML; Start 05/07/18 at 09:00 Norepinephrine 250 ml @ 1.875 mls/ hr TITRATE IV Last administered on 05/08/18 13:33; Admin Dose 33.75 MLS/HR; Start 05/08/18 at 03:00 Citric Acid/ Sodium Citrate (Bicitra) 30 ml Q8 PO Last administered on 05/19/18 13:43; Admin Dose 30 ML; Start 05/09/18 at 08:00 Phenylephrine HCl 80 mg/Dextrose 250 ml @ 18.75 mls/ hr TITRATE IV Last administered on 05/15/18 01:50; Admin Dose 5.63 MLS/HR; Start 05/09/18 at 12:30 Miscellaneous Information (Pending Santyl Order For Wound Care) This patient goldman... PRN PRN XX WOUND CARE; Start 05/09/18 at 17:00 Vancomycin HCl (Vancomycin Oral Syringe) 250 mg Q6 PO Last administered on 05/19/18 18:22; Admin Dose 250 MG; Start 05/12/18 at 00:00 Metronidazole 100 ml @ 100 mls/hr Q8 IVPB Last administered on 05/19/18 21:07; Admin Dose 100 MLS/HR; Start 05/11/18 at 20:00 Collagenase (Santyl) 1 applic DAILY TOP Last administered on 05/19/18 08:43; Admin Dose 1 APPLIC; Start 05/13/18 at 09:00 Propofol 100 ml @ 2.64 mls/hr Q12H IV Last administered on 05/19/18 18:27; Admin Dose 15.84 MLS/HR; Start 05/12/18 at 18:30 Albuterol (Ventolin Hfa) 4 puff Q6H RESP THERAPY INH Last administered on 05/19/18 19:52; Admin Dose 4 PUFF; Start 05/12/18 at 20:00 Ipratropium [place] (Atrovent Hfa) 4 puff Q6H RESP THERAPY INH Last administered on 05/19/18 19:52; Admin Dose 4 PUFF; Start 05/12/18 at 20:00 Cholestyramine Resin (Questran Light) 4 gm BID PO Last administered on 05/19/18 20:00; Admin Dose 4 GM; Start 05/14/18 at 21:00 Heparin Sodium (Porcine) (Heparin (1000 Units/ml)) 2,800 unit AFTER DIALYSIS CATHETER Last administered on 05/18/18 18:07; Admin Dose 2,800 UNIT; Start 05/16/18 at 16:30 Furosemide (Lasix) 40 mg BID DIURETICS IV Last administered on 05/19/18 18:22; Admin Dose 40 MG; Start 05/19/18 at 09:00 Morphine Sulfate (morphine) 2 mg Q4H PRN IV SEVERE PAIN LEVEL 7-10; Start 05/19/18 at 11:00 Lorazepam (Ativan) 0.5 mg Q6H PRN PEG ANXIETY; Start 05/19/18 at 11:00 Epoetin Zen-epbx (RETACRIT(esrd)) 20,000 unit Tu@1700 SC Last administered on 05/19/18at 18:23; Admin Dose 20,000 UNIT; Start 05/19/18 at 17:00 Evangelista Scanlon DO May 19, 2018 21:43
[2018-05-20] VITALS (49 sets, daily range): BP systolic 91–169; BP diastolic 50–105; PULSE 94–136; RESP 20–30
[2018-05-20] MEDS: VANCOMYCIN HCL 250 MG/5ML POSYG PO SCH ×4 (00:07→18:57)
[2018-05-20] MEDS: PROPOFOL 100 ML IV SCH ×5 (01:00→22:36)
[2018-05-20] MEDS: ALBUTEROL HFA 8 GM INHALER INH SCH ×4 (01:24→20:21)
[2018-05-20] MEDS: IPRATROPIUM (HFA) 12.9 GM INHALER INH SCH ×4 (01:24→20:21)
[2018-05-20] MEDS: FUROSEMIDE 40 MG INJ IV SCH ×2 (05:03→18:57)
[2018-05-20] MEDS: CITRIC ACID/NA CITRATE 30 ML CUP PO SCH ×3 (05:03→21:03)
[2018-05-20] MEDS: metroNIDAZOLE 500 MG/NS (PMX) 100 ML IVPB SCH ×3 (05:03→21:03)
[2018-05-20] MEDS ORDERED: AMIODARONE 150MG/D5W BOLUS 100 ML IV ONE ×2 (06:30)
[2018-05-20] MEDS ORDERED: MAGNESIUM SULFATE 2 GM/50 ML 50 ML IVPB ONE (06:30)
[2018-05-20] MEDS ORDERED: ALTEPLASE (CATHFLO) 2 MG INJ CATHETER ONE (07:00)
[2018-05-20] MEDS: AMIODARONE 900 MG in DEXTROSE 5% 482 ML IV SCH (07:21)
--- NOTE | 2018-05-20 07:58 | PN ---
DATE: 05/20/2018 SUBJECTIVE: The patient remains critically ill on full ventilatory support. The patient's urinary o utput has improved approximately over 2 liters of urinary output. The patient is responsive to tacti le and verbal stimuli. There is no report of any hemoptysis, hematemesis or hematochezia. OBJECTIVE: VITAL SIGNS: Blood pressure is 120/63, respirations 20, pulse 113, temperature 98.9. HEENT: Head is normocephalic. NECK: Supple. HEART: Regular rate. LUNGS: Show diminished breath sounds at the base. ABDOMEN: Soft, nontender to palpation. No rebound or guarding. EXTREMITIES: Negative for clubbing, cyanosis. Diffuse anasarca. DERMATOLOGIC: No rashes. MUSCULOSKELETAL: No joint effusion. NEUROLOGIC: No change in exam. MEDICATIONS: The patient's medications have been reviewed. LABORATORY DATA: Reviewed, showed a white count of 12.1, hemoglobin 9.0. Sodium 141, potassium 2.7, BUN 68, creatinine 1.34. ASSESSMENT AND PLAN: 1. Nonoliguric acute kidney injury on top of chronic kidney disease with previous baseline creatinin e of 2.5 mg/dL. Etiology of current acute kidney injury was secondary to shock, sepsis. The patient was initiated on hemodialysis for solute clearance and volume removal. The patient now is showing g ood renal recovery as urinary output has increased over 2 liters daily. However, patient continues t o have diffuse anasarca. Plan is to continue current diuretic regimen of Lasix and metolazone. We w ill also plan for ultrafiltration with dialysis today with goal of 1 to 2 liters removal. Continue t o monitor I's and O's and electrolytes closely. 2. Hypokalemia and hypomagnesemia. Continue to monitor and replete. 3. Anemia. Monitor hemoglobin and hematocrit levels. 4. Sepsis, status post shock secondary to urinary tract infection and pneumonia. The patient is cur rently on antibiotic regimen, continue. Off pressor support. 5. Tachyarrhythmia. Continue current medical management. 6. Ventilator dependent respiratory failure. Vent settings and ABG was reviewed. Continue to monit or. 7. Dysphagia, status post PEG. Continue tube feeding. 8. Acute encephalopathy, etiology is toxic metabolic. 9. Decompensated heart failure. Continue medical management. Continue diuretic therapy. Continue ultrafiltration with dialysis. Please note I spent over 30 minutes of critical care time with this patient. Dictated By: JEANA BANSAL DO NR/TABATHA Conf#: [id number] DID#: [id number] CC: QUINTEN UMAÑA MD; ROLAND GIRON MD;*EndCC*
[2018-05-20] MEDS: BALSAM PERU/CASTOR OIL 60 GM TUBE TOP SCH ×2 (09:49→20:58)
[2018-05-20] MEDS: ASCORBIC ACID 500 MG TAB GTB SCH (09:49)
[2018-05-20] MEDS: COLLAGENASE 5 GM (UD JAR) TOP SCH (09:49)
[2018-05-20] MEDS: MULTIVITAMINS 30 ML CUP GTB SCH (09:49)
[2018-05-20] MEDS: CHOLESTYRAMINE (LIGHT) 4 GM PACKET PO SCH ×2 (09:49→20:58)
[2018-05-20] MEDS: ZINC SULFATE 220 MG CAP GTB SCH (09:49)
--- NOTE | 2018-05-20 10:59 | CONS ---
Consult Date/Type/Reason Admit Date/Time May 06, 2018 at 17:38 Initial Consult Date 05/10/18 Type of Consult Pulmonary Requesting Provider: ROLAND GIRON MD Date/Time of Note DATE: 05/20/18 TIME: 10:57 Subjective Failed CPAP trial yesterday. Continues mechanical ventilation today. Tube feeding as tolerated pending hemodialysis. Started on amiodarone for atrial fibrillation with rapid ventricular rate. Objective Vital Signs Date Temp Pulse Resp B/P (MAP) Pulse Ox O2 O2 Flow FiO2 Time Delivery Rate 05/20/18 136 08:00 05/20/18 28 128/63 97 Mechanical 06:00 (84) Ventilator 05/20/18 30 05:30 05/20/18 98.9 04:00 Intake and Output 05/19/18 05/19/18 05/20/18 1515:00 23:00 07:00 IntakeIntake Total 644.20 ml 606.72 ml 522.88 ml OutputOutput Total 825 ml 820 ml 653 ml BalanceBalance -180.80 ml -213.28 ml -130.12 ml Exam GENERAL: Elderly appearing lady on mechanical ventilation orally intubated VITAL SIGNS: per chart NECK: Supple. No JVD or lymphadenopathy. CARDIAC EXAM: S1, S2. No added sounds or murmurs. CHEST: Diminished air entry bilaterally ABDOMEN: Soft, nontender. No guarding or rebound. EXTREMITIES: No cyanosis, clubbing edema +2 NEUROLOGIC: Generalized weakness. Vent Setting Ventilator Support Mode: AC Fraction of Inspired Oxygen pe: 30 Positive End Expiratory Pressu: 5.0 Results/Medications Result Diagram: 05/20/18 0345 05/20/18 0345 Results 24 hrs Laboratory Tests Test 05/20/18 03:45 White Blood Count 12.1 #H Red Blood Count 2.66 L Hemoglobin 9.0 L Hematocrit 27.7 L Mean Corpuscular Volume 104.1 H Mean Corpuscular Hemoglobin 33.8 H Mean Corpuscular Hemoglobin Concent 32.5 Red Cell Distribution Width 19.1 H Platelet Count 127 L Mean Platelet Volume 10.2 Immature Granulocytes % 0.400 Neutrophils % 87.5 H Lymphocytes % 7.2 L Monocytes % 4.7 Eosinophils % 0.0 Basophils % 0.2 Nucleated Red Blood Cells % 0.0 Immature Granulocytes # 0.050 H Neutrophils # 10.5 H Lymphocytes # 0.9 Monocytes # 0.6 Eosinophils # 0.0 Basophils # 0.0 Nucleated Red Blood Cells # 0.0 Sodium Level 141 Potassium Level 3.7 Chloride Level 105 Carbon Dioxide Level 24 Anion Gap 12 Blood Urea Nitrogen 58 H Creatinine 1.34 H Est Glomerular Filtrat Rate mL/min Glucose Level 89 Calcium Level 8.3 L Phosphorus Level 3.7 Magnesium Level 1.9 Medications Current Medications IV Flush (NS 10 ml) 10 ml PRN IV ; Start 05/06/18 at 20:30 Ascorbic Acid (Vitamin C) 500 mg DAILY GTB Last administered on 05/20/18 09:49; Admin Dose 500 MG; Start 05/07/18 at 09:00 Albuterol/ Ipratropium (Duoneb) 3 ml Q2H RESP THERAPY PRN HHN SHORTNESS OF BREATH; Start 05/06/18 at 23:30 Zinc Sulfate (Zinc Sulfate) 220 mg DAILY GTB Last administered on 05/20/18 09:49; Admin Dose 220 MG; Start 05/07/18 at 09:00 Ondansetron HCl (Zofran Tab) 4 mg Q6H PRN GTB NAUSEA AND/OR VOMITING; Start 05/07/18 at 00:15 Multivitamins (Multivitamin) 30 ml DAILY GTB Last administered on 05/20/18 09:49; Admin Dose 30 ML; Start 05/07/18 at 09:00 Norepinephrine 250 ml @ 1.875 mls/ hr TITRATE IV Last administered on 05/08/18at 13:33; Admin Dose 33.75 MLS/HR; Start 05/08/18 at 03:00 Citric Acid/ Sodium Citrate (Bicitra) 30 ml Q8 PO Last administered on 05/20/18 05:03; Admin Dose 30 ML; Start 05/09/18 at 08:00 Phenylephrine HCl 80 mg/Dextrose 250 ml @ 18.75 mls/ hr TITRATE IV Last administered on 05/15/18at 01:50; Admin Dose 5.63 MLS/HR; Start 05/09/18 at 12:30 Miscellaneous Information (Pending Santyl Order For Wound Care) This patient goldman... PRN PRN XX WOUND CARE; Start 05/09/18 at 17:00 Vancomycin HCl (Vancomycin Oral Syringe) 250 mg Q6 PO Last administered on 05/20/18 05:03; Admin Dose 250 MG; Start 05/12/18 at 00:00 Metronidazole 100 ml @ 100 mls/hr Q8 IVPB Last administered on 05/20/18 05:03; Admin Dose 100 MLS/HR; Start 05/11/18 at 20:00 Collagenase (Santyl) 1 applic DAILY TOP Last administered on 05/20/18 09:49; Admin Dose 1 APPLIC; Start 05/13/18 at 09:00 Propofol 100 ml @ 2.64 mls/hr Q12H IV Last administered on 05/20/18 05:36; Admin Dose 18.48 MLS/HR; Start 05/12/18 at 18:30 Albuterol (Ventolin Hfa) 4 puff Q6H RESP THERAPY INH Last administered on 05/20/18 08:59; Admin Dose 4 PUFF; Start 05/12/18 at 20:00 Ipratropium [place] (Atrovent Hfa) 4 puff Q6H RESP THERAPY INH Last administered on 05/20/18 08:59; Admin Dose 4 PUFF; Start 05/12/18 at 20:00 Cholestyramine Resin (Questran Light) 4 gm BID PO Last administered on 05/20/18 09:49; Admin Dose 4 GM; Start 05/14/18 at 21:00 Heparin Sodium (Porcine) (Heparin (1000 Units/ml)) 2,800 unit AFTER DIALYSIS CATHETER Last administered on 05/18/18 18:07; Admin Dose 2,800 UNIT; Start 05/16/18 at 16:30 Furosemide (Lasix) 40 mg BID DIURETICS IV Last administered on 05/20/18 05:03; Admin Dose 40 MG; Start 05/19/18 at 09:00 Morphine Sulfate (morphine) 2 mg Q4H PRN IV SEVERE PAIN LEVEL 7-10 Last administered on 05/20/18 04:17; Admin Dose 2 MG; Start 05/19/18 at 11:00 Lorazepam (Ativan) 0.5 mg Q6H PRN PEG ANXIETY; Start 05/19/18 at 11:00 Epoetin Zen-epbx (RETACRIT(esrd)) 20,000 unit Tu@1700 SC Last administered on 05/19/18 18:23; Admin Dose 20,000 UNIT; Start 05/19/18 at 17:00 Amiodarone HCl 900 mg/Dextrose 500 ml @ 0 mls/hr Q0M IV Last administered on 05/20/18at 07:21; Admin Dose 33.3 MLS/HR; Start 05/20/18 at 06:30 Assessment/Plan Hospital Course (Demo Recall) IMP: 1. Septic shock likely secondary to recent UTI now C. difficile colitis, possible healthcare associated pneumonia also 2. Acute Renal Failure--likely non-oliguric ATN 3. Resolved metabolic acidosis 4. Encephalopathy--toxic-metabolic 2/2 infection and ARF, in addition to baseline 5. Anemia--r/o acute GIB 6. H/O abdominal abscess 7. Acute hypoxemic respiratory failure secondary to above, continue mechanical ventilation 8. Atrial fibrillation with rapid ventricular rate RECS: 1. Hemodialysis as tolerated 2. Continue mechanical ventilation, decrease FiO2 as tolerated, CPAP trial if more alert. 3. Abx as per ID 4. Continue tube feeding as tolerated 5. Aspiration precautions pulmonary toilet 6. Monitor H&H post transfusion 7. Rate control per cardiology continue amiodarone drip for now. Continue supportive care, Critical care time 40 minutes. Consider family discussion regarding goals of care including repeat tracheostomy if needed. LAURA JENKINS MD, [facility] May 20, 2018 10:59
--- NOTE | 2018-05-20 14:46 | CONS ---
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 colonization of the airway by pseudomonas and E SBL+klebsiella - h/o possible, recurrent HCAP due to pseudomonas and ESBL+klebsiella - h/o recurrent HCAP due to MRSA and Enterobacter (culture of tracheal aspirate on 07/16/2017 that was collected at [facility]) . Pt took vancomycin and ceftazidime - h/o acute respiratory distress post-thoracentesis, resolved - h/o thoracentesis on 07/18/2017, transudative (protein <2, LDH 279) - h/o bleeding from the trach site - h/o septic shock due to pneumonia, ARDS, bacteremia, fungemia - h/o ARDS - h/o smoking - COPD - ILD # Cardiac - PAF, currently sinus tachycardia # GI - C diff colitis, diagnosed on 05/11/2018 - h/o intermittent diarrhea, Pt had multiple negative C. diff tests at [facility] at [facility] in the past - dysphagia - h/o PEG placement 06/13/2018 - protein calorie malnutrition - h/o coffee ground emesis/UGIB 12/23/2017 due to deep ulceration of distal esophagus and gastritis on EGD 12/26/2017. No e/o H. pylori - h/o possible appendicitis on CT on 11/22/2017, Pt took ertapenem (11/24/2017- 12/01/2017) - h/o extensive adhesions lower abdominal and pelvis between small bowel to each other and to colon and to abdominal wall, anterior pelvic wall chronic abscess secondary to probably an old perforated diverticulitis, torsion of small bowel around these dense adhesion causing multiple obstructive points - h/o laparoscopic exploration and extensive lysis of adhesions and drainage of anterior pelvic wall abscess 09/16/2017. Cultures were negative, no e/o malignancy. Pt took pip/tazo (09/16/2017-09/26/2017) - h/o partial obstruction mid jejunum in L anterior central pelvis with sugges tion of a 3 cm soft tissue mass on CT 08/28/2017 - h/o internal stomal deep ulcer behind the internal bumper, gastritis and esophagitis, Rodriguez's cannot be ruled out, per EGD with biopsy 07/23/2017 - h/o GIB s/p flex sig showed polyp; stool OB negative on 06/29/17 - h/o stool OB positive status - h/o SBO and ileus due to pain meds - h/o EGD and exchange of PEG on 09/01/2017 - h/o mildly elevated CEA # renal/ - recurrent NATHAN on CKD - started on HD on 05/15/2018, via Kem in R groin - 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 His strain of CRE was sensitive to colistin, Avycaz, and Vabomere but resistant to Zerbaxa (reported on 05/19/2018) - Hyponatremia - Hyperkalemia, now hypokalemia - Metabolic acidosis - adrenal insufficiency - h/o vaginal bleed - h/o colonization of urinary tract by ESBL+klebsiella, VRE - h/o recurrent, symptomatic UTI due to carbapenem-resistant kleb (MDR strain) per urine culture 10/04/17, 10/09/17, 10/21/2017, P took colistin (10/09/2017- 10/15/2017), fosfomycin for carbapenemase-producing klebsiella and VRE on 10/25/2017 and 10/28/2017 - h/o funguria - h/o urinary retention # fungemia, bacteremia - h/o bacteremia due to coag negative Staph, probable contaminant as her WBC level improved initially without antibiotic - 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 improved. Probable manifestation of endocarditis. Pt declined MRI on 08/06/2017 - h/o infection of R toes due to pseudomonas. coagulase negative Staph likely a colonizer. resolved - h/o intertrigo of the groin, resolved with nystatin powder - h/o scabies, locally crusted lesion over L scapula, s/p permethrin cream and pGT ivermectin on 08/11/2017, 08/12/2017, 08/19/2017. Repeat skin scraping on 08/21/2017 was negative for scabies # psych, neuro - acute toxic metabolic encephalopathy - decreased hearing b/l - h/o critical illness polyneuropathy - anxiety/depression, bipolar d/o, seen by Psychiatry in the past - chronic pain syndrome - h/o medical non-compliance: she would refuse her medications, treatment and straight catheterization at times # hematological, vascular - chronic anemia requiring blood transfusion intermittently - Macrocytic anemia - 3.1 cm AAA on imaging - PVD recommendations: - continue pGT vancomycin (05/11/2018-) and IV metronidazole (05/11/2018-) for C diff colitis, plan for 10 days. Pt completed meropenem for HCAP (05/13/2018-05/19/2018) management d/w Pt's HD nurse the critical care time I took to care for this Pt today was from 1415 to 1445 Consultation Date/Type/Reason Admit Date/Time May 06, 2018 at 17:38 Initial Consult Date 05/10/18 Type of Consult ID Requesting Provider: ROALND GIRON MD Date/Time of Note DATE: 05/20/18 TIME: 14:43 24 HR Interval Summary Subjective hx not possible: pt non-verbal, pt critical, pt critical status Exam/Review of Systems Exam Vitals Vital Signs Date Temp Pulse Resp B/P (MAP) Pulse Ox O2 O2 Flow FiO2 Time Delivery Rate 05/20/18 104 12:00 05/20/18 26 97 30 11:40 05/20/18 128/63 Mechanical 06:00 (84) Ventilator 05/20/18 98.9 04:00 Intake and Output 05/19/18 05/19/18 05/20/18 1515:00 23:00 07:00 IntakeIntake Total 644.20 ml 606.72 ml 522.88 ml OutputOutput Total 825 ml 820 ml 653 ml BalanceBalance -180.80 ml -213.28 ml -130.12 ml Constitutional: non-verbal, frail Psych: confusion Head: normocephalic, atraumatic Eyes: nl conjunctiva, nl lids, nl sclera, PERRL ENMT: nl external ears & nose, nl nasal mucosa & septum Neck: other (trach) Respiratory: crackles/rales Cardiovascular: regular rate and rhythm, nl pulses, edema Gastrointestinal: soft, non-tender, other (PEG); No distended Genitourinary - Female: other (FC) Extremities: edema, pitting pedal edema Neurological: unresponsive Skin: rash or lesions (dry skin), ecchymosis (b/l UEs) Results Result Diagram: 05/20/18 0345 05/20/18 0345 Results 24hrs Laboratory Tests Test 05/20/18 03:45 White Blood Count 12.1 #H Red Blood Count 2.66 L Hemoglobin 9.0 L Hematocrit 27.7 L Mean Corpuscular Volume 104.1 H Mean Corpuscular Hemoglobin 33.8 H Mean Corpuscular Hemoglobin Concent 32.5 Red Cell Distribution Width 19.1 H Platelet Count 127 L Mean Platelet Volume 10.2 Immature Granulocytes % 0.400 Neutrophils % 87.5 H Lymphocytes % 7.2 L Monocytes % 4.7 Eosinophils % 0.0 Basophils % 0.2 Nucleated Red Blood Cells % 0.0 Immature Granulocytes # 0.050 H Neutrophils # 10.5 H Lymphocytes # 0.9 Monocytes # 0.6 Eosinophils # 0.0 Basophils # 0.0 Nucleated Red Blood Cells # 0.0 Sodium Level 141 Potassium Level 3.7 Chloride Level 105 Carbon Dioxide Level 24 Anion Gap 12 Blood Urea Nitrogen 58 H Creatinine 1.34 H Est Glomerular Filtrat Rate mL/min Glucose Level 89 Calcium Level 8.3 L Phosphorus Level 3.7 Magnesium Level 1.9 Medications Medication Current Medications IV Flush (NS 10 ml) 10 ml PRN IV ; Start 05/06/18 at 20:30 Ascorbic Acid (Vitamin C) 500 mg DAILY GTB Last administered on 05/20/18 09:49; Admin Dose 500 MG; Start 05/07/18 at 09:00 Albuterol/ Ipratropium (Duoneb) 3 ml Q2H RESP THERAPY PRN HHN SHORTNESS OF BREATH; Start 05/06/18 at 23:30 Zinc Sulfate (Zinc Sulfate) 220 mg DAILY GTB Last administered on 05/20/18 09:49; Admin Dose 220 MG; Start 05/07/18 at 09:00 Ondansetron HCl (Zofran Tab) 4 mg Q6H PRN GTB NAUSEA AND/OR VOMITING; Start 05/07/18 at 00:15 Multivitamins (Multivitamin) 30 ml DAILY GTB Last administered on 05/20/18 09:49; Admin Dose 30 ML; Start 05/07/18 at 09:00 Norepinephrine 250 ml @ 1.875 mls/ hr TITRATE IV Last administered on 05/08/18 13:33; Admin Dose 33.75 MLS/HR; Start 05/08/18 at 03:00 Citric Acid/ Sodium Citrate (Bicitra) 30 ml Q8 PO Last administered on 05/20/18 13:35; Admin Dose 30 ML; Start 05/09/18 at 08:00 Phenylephrine HCl 80 mg/Dextrose 250 ml @ 18.75 mls/ hr TITRATE IV Last administered on 05/15/18 01:50; Admin Dose 5.63 MLS/HR; Start 05/09/18 at 12:30 Miscellaneous Information (Pending Santyl Order For Wound Care) This patient goldman... PRN PRN XX WOUND CARE; Start 05/09/18 at 17:00 Vancomycin HCl (Vancomycin Oral Syringe) 250 mg Q6 PO Last administered on 05/20/18 12:19; Admin Dose 250 MG; Start 05/12/18 at 00:00 Metronidazole 100 ml @ 100 mls/hr Q8 IVPB Last administered on 05/20/18 13:35; Admin Dose 100 MLS/HR; Start 05/11/18 at 20:00 Collagenase (Santyl) 1 applic DAILY TOP Last administered on 05/20/18 09:49; Admin Dose 1 APPLIC; Start 05/13/18 at 09:00 Propofol 100 ml @ 2.64 mls/hr Q12H IV Last administered on 05/20/18 11:36; Adm in Dose 18.48 MLS/HR; Start 05/12/18 at 18:30 Albuterol (Ventolin Hfa) 4 puff Q6H RESP THERAPY INH Last administered on 05/20/18 14:24; Admin Dose 4 PUFF; Start 05/12/18 at 20:00 Ipratropium [place] (Atrovent Hfa) 4 puff Q6H RESP THERAPY INH Last administered on 05/20/18 14:24; Admin Dose 4 PUFF; Start 05/12/18 at 20:00 Cholestyramine Resin (Questran Light) 4 gm BID PO Last administered on 05/20/18 09:49; Admin Dose 4 GM; Start 05/14/18 at 21:00 Heparin Sodium (Porcine) (Heparin (1000 Units/ml)) 2,800 unit AFTER DIALYSIS CATHETER Last administered on 05/18/18 18:07; Admin Dose 2,800 UNIT; Start 05/16/18 at 16:30 Furosemide (Lasix) 40 mg BID DIURETICS IV Last administered on 05/20/18 05:03; Admin Dose 40 MG; Start 05/19/18 at 09:00 Morphine Sulfate (morphine) 2 mg Q4H PRN IV SEVERE PAIN LEVEL 7-10 Last administered on 05/20/18 04:17; Admin Dose 2 MG; Start 05/19/18 at 11:00 Lorazepam (Ativan) 0.5 mg Q6H PRN PEG ANXIETY; Start 05/19/18 at 11:00 Epoetin Zen-epbx (RETACRIT(esrd)) 20,000 unit Tu@1700 SC Last administered on 05/19/18 18:23; Admin Dose 20,000 UNIT; Start 05/19/18 at 17:00 Amiodarone HCl 900 mg/Dextrose 500 ml @ 0 mls/hr Q0M IV Last administered on 05/20/18 07:21; Admin Dose 33.3 MLS/HR; Start 05/20/18 at 06:30 CELESTINE MURPHY M.D. May 20, 2018 14:46
--- NOTE | 2018-05-20 15:01 | PN ---
Date/Time of Note Date/Time of Note DATE: 05/20/18 TIME: 14:55 Assessment/Plan VTE Prophylaxis Risk score (from Ns)>0 risk: 10 SCD applied (from [facility]): Yes Pharmacological prophylaxis: NA/contraindicated Pharm contraindication: bleeding Lines/Catheters IV C[facility] Type (from [facility] Juan Urinary Cath still in place: Yes Reason Cath still needed: urinary retention Assessment/Plan Hospital Course Patient had an episode of atrial fibrillation with rapid ventricular response early in the morning, currently on amiodarone drip, rate is controlled. Patient continues on ventilatory support, propofol drip for sedation. Patient is undergoing hemodialysis. Assessment/Plan -Atrial fibrillation was rapid ventricular response, patient is currently on amiodarone drip. -Septic shock secondary to urinary tract infection, anterior neck soft tissue infection, and C. difficile colitis, resolving. Continue antibiotics per ID. Dr. Black is following in infection disease consultation. -Acute respiratory failure requiring intubation and ventilatory support. Dr. Lambert is following in pulmonology consultation. -Acute kidney injury on chronic kidney disease. Started on HD this admission. Dr. Mckeon is following in nephrology consultation. -Anemia of chronic inflammation, stool for OB is negative, status post blood transfusion. Continue Epogen. -Metabolic acidosis, resolved. -Acute diastolic congestive heart failure. Dr. Scanlon is following in cardiology consultation. -Paroxysmal atrial fibrillation -COPD -Dysphagia with PEG. -G-tube mild malfunction, changed by GI Dr. Carolina is following in gastroenterology consultation. -Obesity Dr. Eisenberg spoke with patient son Johnson yesterday, updated him on patient's condition, patient son wants patient to continue to be full code for aggressive treatment including ventilatory support and dialysis. Critical care time spent is 30 minutes. Further recommendations based on clinical course. Plan of care discussed with Dr. Eisenberg. Result Diagram: 05/20/18 0345 05/20/18 0345 Results 24hrs Laboratory Tests Test 05/20/18 03:45 White Blood Count 12.1 #H Red Blood Count 2.66 L Hemoglobin 9.0 L Hematocrit 27.7 L Mean Corpuscular Volume 104.1 H Mean Corpuscular Hemoglobin 33.8 H Mean Corpuscular Hemoglobin Concent 32.5 Red Cell Distribution Width 19.1 H Platelet Count 127 L Mean Platelet Volume 10.2 Immature Granulocytes % 0.400 Neutrophils % 87.5 H Lymphocytes % 7.2 L Monocytes % 4.7 Eosinophils % 0.0 Basophils % 0.2 Nucleated Red Blood Cells % 0.0 Immature Granulocytes # 0.050 H Neutrophils # 10.5 H Lymphocytes # 0.9 Monocytes # 0.6 Eosinophils # 0.0 Basophils # 0.0 Nucleated Red Blood Cells # 0.0 Sodium Level 141 Potassium Level 3.7 Chloride Level 105 Carbon Dioxide Level 24 Anion Gap 12 Blood Urea Nitrogen 58 H Creatinine 1.34 H Est Glomerular Filtrat Rate mL/min Glucose Level 89 Calcium Level 8.3 L Phosphorus Level 3.7 Magnesium Level 1.9 Exam/Review of Systems Exam Vitals Vital Signs Date Temp Pulse Resp B/P (MAP) Pulse Ox O2 O2 Flow FiO2 Time Delivery Rate 05/20/18 104 12:00 05/20/18 26 97 30 11:40 05/20/18 128/63 Mechanical 06:00 (84) Ventilator 05/20/18 98.9 04:00 Intake and Output 05/19/18 05/19/18 05/20/18 1515:00 23:00 07:00 IntakeIntake Total 644.20 ml 606.72 ml 522.88 ml OutputOutput Total 825 ml 820 ml 653 ml BalanceBalance -180.80 ml -213.28 ml -130.12 ml Exam Constitutional: frail, orally intubated Respiratory: diminished breath sounds Cardiovascular: irregular rate and rhythm Gastrointestinal: soft, tender, other (G-tube) Musculoskeletal: nl extremities to inspection Extremities: normal pulses Neurological: sedated Results Results 24hrs Laboratory Tests Test 05/20/18 03:45 White Blood Count 12.1 #H Red Blood Count 2.66 L Hemoglobin 9.0 L Hematocrit 27.7 L Mean Corpuscular Volume 104.1 H Mean Corpuscular Hemoglobin 33.8 H Mean Corpuscular Hemoglobin Concent 32.5 Red Cell Distribution Width 19.1 H Platelet Count 127 L Mean Platelet Volume 10.2 Immature Granulocytes % 0.400 Neutrophils % 87.5 H Lymphocytes % 7.2 L Monocytes % 4.7 Eosinophils % 0.0 Basophils % 0.2 Nucleated Red Blood Cells % 0.0 Immature Granulocytes # 0.050 H Neutrophils # 10.5 H Lymphocytes # 0.9 Monocytes # 0.6 Eosinophils # 0.0 Basophils # 0.0 Nucleated Red Blood Cells # 0.0 Sodium Level 141 Potassium Level 3.7 Chloride Level 105 Carbon Dioxide Level 24 Anion Gap 12 Blood Urea Nitrogen 58 H Creatinine 1.34 H Est Glomerular Filtrat Rate mL/min Glucose Level 89 Calcium Level 8.3 L Phosphorus Level 3.7 Magnesium Level 1.9 Medications Medication Current Medications IV Flush (NS 10 ml) 10 ml PRN IV ; Start 05/06/18 at 20:30 Ascorbic Acid (Vitamin C) 500 mg DAILY GTB Last administered on 05/20/18 09:49; Admin Dose 500 MG; Start 05/07/18 at 09:00 Albuterol/ Ipratropium (Duoneb) 3 ml Q2H RESP THERAPY PRN HHN SHORTNESS OF BREATH; Start 05/06/18 at 23:30 Zinc Sulfate (Zinc Sulfate) 220 mg DAILY GTB Last administered on 05/20/18 09:49; Admin Dose 220 MG; Start 05/07/18 at 09:00 Ondansetron HCl (Zofran Tab) 4 mg Q6H PRN GTB NAUSEA AND/OR VOMITING; Start 05/07/18 at 00:15 Multivitamins (Multivitamin) 30 ml DAILY GTB Last administered on 05/20/18 09:49; Admin Dose 30 ML; Start 05/07/18 at 09:00 Norepinephrine 250 ml @ 1.875 mls/ hr TITRATE IV Last administered on 05/08/18 13:33; Admin Dose 33.75 MLS/HR; Start 05/08/18 at 03:00 Citric Acid/ Sodium Citrate (Bicitra) 30 ml Q8 PO Last administered on 05/20/18 13:35; Admin Dose 30 ML; Start 05/09/18 at 08:00 Phenylephrine HCl 80 mg/Dextrose 250 ml @ 18.75 mls/ hr TITRATE IV Last administered on 05/15/18 01:50; Admin Dose 5.63 MLS/HR; Start 05/09/18 at 12:30 Miscellaneous Information (Pending Santyl Order For Wound Care) This patient goldman... PRN PRN XX WOUND CARE; Start 05/09/18 at 17:00 Vancomycin HCl (Vancomycin Oral Syringe) 250 mg Q6 PO Last administered on 05/20/18 12:19; Admin Dose 250 MG; Start 05/12/18 at 00:00 Metronidazole 100 ml @ 100 mls/hr Q8 IVPB Last administered on 05/20/18 13:35; Admin Dose 100 MLS/HR; Start 05/11/18 at 20:00 Collagenase (Santyl) 1 applic DAILY TOP Last administered on 05/20/18 09:49; Admin Dose 1 APPLIC; Start 05/13/18 at 09:00 Propofol 100 ml @ 2.64 mls/hr Q12H IV Last administered on 05/20/18 11:36; Admin Dose 18.48 MLS/HR; Start 05/12/18 at 18:30 Albuterol (Ventolin Hfa) 4 puff Q6H RESP THERAPY INH Last administered on 05/20/18 14:24; Admin Dose 4 PUFF; Start 05/12/18 at 20:00 Ipratropium [place] (Atrovent Hfa) 4 puff Q6H RESP THERAPY INH Last administered on 05/20/18 14:24; Admin Dose 4 PUFF; Start 05/12/18 at 20:00 Cholestyramine Resin (Questran Light) 4 gm BID PO Last administered on 05/20/18 09:49; Admin Dose 4 GM; Start 05/14/18 at 21:00 Heparin Sodium (Porcine) (Heparin (1000 Units/ml)) 2,800 unit AFTER DIALYSIS CATHETER Last administered on 05/18/18 18:07; Admin Dose 2,800 UNIT; Start 05/16/18 at 16:30 Furosemide (Lasix) 40 mg BID DIURETICS IV Last administered on 05/20/18 05:03; Admin Dose 40 MG; Start 05/19/18 at 09:00 Morphine Sulfate (morphine) 2 mg Q4H PRN IV SEVERE PAIN LEVEL 7-10 Last administered on 05/20/18 04:17; Admin Dose 2 MG; Start 05/19/18 at 11:00 Lorazepam (Ativan) 0.5 mg Q6H PRN PEG ANXIETY; Start 05/19/18 at 11:00 Epoetin Zen-epbx (RETACRIT(esrd)) 20,000 unit Tu@1700 SC Last administered on 05/19/18 18:23; Admin Dose 20,000 UNIT; Start 05/19/18 at 17:00 Amiodarone HCl 900 mg/Dextrose 500 ml @ 0 mls/hr Q0M IV Last administered on 05/20/18at 07:21; Admin Dose 33.3 MLS/HR; Start 05/20/18 at 06:30 GRISELDA DENNIS May 20, 2018 15:01
[2018-05-20] MEDS: HEPARIN 1000 UNITS/ML 10 ML INJ CATHETER SCH (18:08)
--- NOTE | 2018-05-20 20:18 | CONS ---
Assessment/Plan Assessment/Plan Assessment/Plan (Daily) 73 yo female Interval hx: Tolerating tube feeds at 35cc/hr. Pt given one unit PRBC yesterday. Hgb up from 7.2 to 9.3. FOB negative. No signs of GI bleeding per RN. Yesterday three soft stools. No evidence of GI bleeding per RN. Propofol gtt 1. Malfunctioning gastrostomy tube. -resolved 2. Renal failure.- on HD 3. Sepsis. -with mx organisms at trach site wound 4. Chronic obstructive pulmonary disease. 5. Bipolar. 6. Paroxysmal atrial fibrillation. 7. Anemia of chronic disease. 8. CHF 9. Elevated alk phos with h/o hepatic venous congestion seen on abd CT in 2018 -resolved 10. Respiratory failure 11. Diarrhea improving with questran 12. UTI with mx organisms 13. H/O deep esophageal ulcer PLAN: Monitor residuals q 4 hours Continue pepcid and questran and vanco PO Will complete the course of vancomycin and then taper the dose slowly to prevent the recurrence Consultation Date/Type/Reason Admit Date/Time May 06, 2018 at 17:38 Initial Consult Date 05/10/18 Requesting Provider: ROLAND GIRON MD Date/Time of Note DATE: 05/20/18 TIME: 20:17 24 HR Interval Summary Subjective hx not possible: pt critical status Exam/Review of Systems Exam Vitals Vital Signs Date Temp Pulse Resp B/P (MAP) Pulse Ox O2 O2 Flow FiO2 Time Delivery Rate 05/20/18 98 22 128/66 94 Mechanical 19:00 (86) Ventilator 05/20/18 30 17:30 05/20/18 99.4 16:00 Intake and Output 05/19/18 05/19/18 05/20/18 1515:00 23:00 07:00 IntakeIntake Total 644.20 ml 606.72 ml 576.36 ml OutputOutput Total 825 ml 820 ml 853 ml BalanceBalance -180.80 ml -213.28 ml -276.64 ml Constitutional: non-verbal Eyes: nl conjunctiva Neck: non-tender Respiratory: other (Is on vent) Gastrointestinal: non-tender Musculoskeletal: nl extremities to inspection Results Result Diagram: 05/20/18 0345 05/20/18 0345 Results 24hrs Laboratory Tests Test 05/20/18 03:45 White Blood Count 12.1 #H Red Blood Count 2.66 L Hemoglobin 9.0 L Hematocrit 27.7 L Mean Corpuscular Volume 104.1 H Mean Corpuscular Hemoglobin 33.8 H Mean Corpuscular Hemoglobin Concent 32.5 Red Cell Distribution Width 19.1 H Platelet Count 127 L Mean Platelet Volume 10.2 Immature Granulocytes % 0.400 Neutrophils % 87.5 H Lymphocytes % 7.2 L Monocytes % 4.7 Eosinophils % 0.0 Basophils % 0.2 Nucleated Red Blood Cells % 0.0 Immature Granulocytes # 0.050 H Neutrophils # 10.5 H Lymphocytes # 0.9 Monocytes # 0.6 Eosinophils # 0.0 Basophils # 0.0 Nucleated Red Blood Cells # 0.0 Sodium Level 141 Potassium Level 3.7 Chloride Level 105 Carbon Dioxide Level 24 Anion Gap 12 Blood Urea Nitrogen 58 H Creatinine 1.34 H Est Glomerular Filtrat Rate mL/min Glucose Level 89 Calcium Level 8.3 L Phosphorus Level 3.7 Magnesium Level 1.9 Medications Medication Current Medications IV Flush (NS 10 ml) 10 ml PRN IV ; Start 05/06/18 at 20:30 Ascorbic Acid (Vitamin C) 500 mg DAILY GTB Last administered on 05/20/18 09:49; Admin Dose 500 MG; Start 05/07/18 at 09:00 Albuterol/ Ipratropium (Duoneb) 3 ml Q2H RESP THERAPY PRN HHN SHORTNESS OF BREATH; Start 05/06/18 at 23:30 Zinc Sulfate (Zinc Sulfate) 220 mg DAILY GTB Last administered on 05/20/18 09:49; Admin Dose 220 MG; Start 05/07/18 at 09:00 Ondansetron HCl (Zofran Tab) 4 mg Q6H PRN GTB NAUSEA AND/OR VOMITING; Start 05/07/18 at 00:15 Multivitamins (Multivitamin) 30 ml DAILY GTB Last administered on 05/20/18 09:49; Admin Dose 30 ML; Start 05/07/18 at 09:00 Norepinephrine 250 ml @ 1.875 mls/ hr TITRATE IV Last administered on 05/08/18 13:33; Admin Dose 33.75 MLS/HR; Start 05/08/18 at 03:00 Citric Acid/ Sodium Citrate (Bicitra) 30 ml Q8 PO Last administered on 05/20/18 13:35; Admin Dose 30 ML; Start 05/09/18 at 08:00 Phenylephrine HCl 80 mg/Dextrose 250 ml @ 18.75 mls/ hr TITRATE IV Last administered on 05/15/18 01:50; Admin Dose 5.63 MLS/HR; Start 05/09/18 at 12:30 Miscellaneous Information (Pending Santyl Order For Wound Care) This patient goldman... PRN PRN XX WOUND CARE; Start 05/09/18 at 17:00 Vancomycin HCl (Vancomycin Oral Syringe) 250 mg Q6 PO Last administered on 05/20/18 18:57; Admin Dose 250 MG; Start 05/12/18 at 00:00 Metronidazole 100 ml @ 100 mls/hr Q8 IVPB Last administered on 05/20/18 13:35; Admin Dose 100 MLS/HR; Start 05/11/18 at 20:00 Collagenase (Santyl) 1 applic DAILY TOP Last administered on 05/20/18 09:49; Admin Dose 1 APPLIC; Start 05/13/18 at 09:00 Propofol 100 ml @ 2.64 mls/hr Q12H IV Last administered on 05/20/18 16:28; Admin Dose 18.48 MLS/HR; Start 05/12/18 at 18:30 Albuterol (Ventolin Hfa) 4 puff Q6H RESP THERAPY INH Last administered on 05/20/18 14:24; Admin Dose 4 PUFF; Start 05/12/18 at 20:00 Ipratropium [place] (Atrovent Hfa) 4 puff Q6H RESP THERAPY INH Last administered on 05/20/18 14:24; Admin Dose 4 PUFF; Start 05/12/18 at 20:00 Cholestyramine Resin (Questran Light) 4 gm BID PO Last administered on 05/20/18 09:49; Admin Dose 4 GM; Start 05/14/18 at 21:00 Heparin Sodium (Porcine) (Heparin (1000 Units/ml)) 2,800 unit AFTER DIALYSIS CATHETER Last administered on 05/20/18 18:08; Admin Dose 2,800 UNIT; Start 05/16/18 at 16:30 Furosemide (Lasix) 40 mg BID DIURETICS IV Last administered on 05/20/18 18:57; Admin Dose 40 MG; Start 05/19/18 at 09:00 Morphine Sulfate (morphine) 2 mg Q4H PRN IV SEVERE PAIN LEVEL 7-10 Last administered on 05/20/18at 04:17; Admin Dose 2 MG; Start 05/19/18 at 11:00 Lorazepam (Ativan) 0.5 mg Q6H PRN PEG ANXIETY; Start 05/19/18 at 11:00 Epoetin Zen-epbx (RETACRIT(esrd)) 20,000 unit Tu@1700 SC Last administered on 05/19/18at 18:23; Admin Dose 20,000 UNIT; Start 05/19/18 at 17:00 Amiodarone HCl 900 mg/Dextrose 500 ml @ 0 mls/hr Q0M IV Last administered on 05/20/18at 07:21; Admin Dose 33.3 MLS/HR; Start 05/20/18 at 06:30 QUINTEN UMAÑA MD May 20, 2018 20:18
--- NOTE | 2018-05-20 21:42 | CONS ---
Assessment/Plan Assessment/Plan Hospital Course (Demo Recall) Septic as well as hemorrhagic shock Hypotension, off IV pressor and improving Acute respiratory failure status post intubation Acute blood loss anemia Septic shock and hemorrhagic shock Parox Atrial fibrillation History of respiratory failure status post decannulation Preserved ejection fraction echocardiogram 05/10/2018 Paroxysmal atrial fibrillation, currently sinus rhythm Acute kidney injury -Started IV Amio for PAF. -BP overall improved -Vent management as per pulmonary -Fluid management and electrolytes as per renal -Hold all antihypertensives and nephrotoxic medications at the current time -Antibiotics as per infectious disease Consultation Date/Type/Reason Admit Date/Time May 06, 2018 at 17:38 Initial Consult Date 05/10/18 Type of Consult Cardiology Requesting Provider: ROLAND GIRON MD Date/Time of Note DATE: 05/20/18 TIME: 21:40 24 HR Interval Summary Free Text/Dictation paf overnight Exam/Review of Systems Vital Signs Vitals Vital Signs Date Temp Pulse Resp B/P (MAP) Pulse Ox O2 O2 Flow FiO2 Time Delivery Rate 05/20/18 99 25 99 30 20:21 05/20/18 97.5 122/62 Mechanical 20:00 (82) Ventilator Intake and Output 05/19/18 05/19/18 05/20/18 1515:00 23:00 07:00 IntakeIntake Total 644.20 ml 606.72 ml 576.36 ml OutputOutput Total 825 ml 820 ml 853 ml BalanceBalance -180.80 ml -213.28 ml -276.64 ml Exam Exam no response to verbal stimuli, nad Head: normocephalic ENMT: intubated Respiratory: other (course bs, no wheeze) Cardiovascular: regular rate and rhythm (s1s2) Gastrointestinal: soft, non-tender, bowel sounds Extremities: edema Labs Result Diagram: 05/20/18 0345 05/20/18 0345 Results 24hrs Laboratory Tests Test 05/20/18 03:45 White Blood Count 12.1 #H Red Blood Count 2.66 L Hemoglobin 9.0 L Hematocrit 27.7 L Mean Corpuscular Volume 104.1 H Mean Corpuscular Hemoglobin 33.8 H Mean Corpuscular Hemoglobin Concent 32.5 Red Cell Distribution Width 19.1 H Platelet Count 127 L Mean Platelet Volume 10.2 Immature Granulocytes % 0.400 Neutrophils % 87.5 H Lymphocytes % 7.2 L Monocytes % 4.7 Eosinophils % 0.0 Basophils % 0.2 Nucleated Red Blood Cells % 0.0 Immature Granulocytes # 0.050 H Neutrophils # 10.5 H Lymphocytes # 0.9 Monocytes # 0.6 Eosinophils # 0.0 Basophils # 0.0 Nucleated Red Blood Cells # 0.0 Sodium Level 141 Potassium Level 3.7 Chloride Level 105 Carbon Dioxide Level 24 Anion Gap 12 Blood Urea Nitrogen 58 H Creatinine 1.34 H Est Glomerular Filtrat Rate mL/min Glucose Level 89 Calcium Level 8.3 L Phosphorus Level 3.7 Magnesium Level 1.9 Medications Medications Current Medications IV Flush (NS 10 ml) 10 ml PRN IV ; Start 05/06/18 at 20:30 Ascorbic Acid (Vitamin C) 500 mg DAILY GTB Last administered on 05/20/18 09:49; Admin Dose 500 MG; Start 05/07/18 at 09:00 Albuterol/ Ipratropium (Duoneb) 3 ml Q2H RESP THERAPY PRN HHN SHORTNESS OF BREATH; Start 05/06/18 at 23:30 Zinc Sulfate (Zinc Sulfate) 220 mg DAILY GTB Last administered on 05/20/18 09:49; Admin Dose 220 MG; Start 05/07/18 at 09:00 Ondansetron HCl (Zofran Tab) 4 mg Q6H PRN GTB NAUSEA AND/OR VOMITING; Start 05/07/18 at 00:15 Multivitamins (Multivitamin) 30 ml DAILY GTB Last administered on 05/20/18 09:49; Admin Dose 30 ML; Start 05/07/18 at 09:00 Norepinephrine 250 ml @ 1.875 mls/ hr TITRATE IV Last administered on 05/08/18 13:33; Admin Dose 33.75 MLS/HR; Start 05/08/18 at 03:00 Citric Acid/ Sodium Citrate (Bicitra) 30 ml Q8 PO Last administered on 05/20/18 21:03; Admin Dose 30 ML; Start 05/09/18 at 08:00 Phenylephrine HCl 80 mg/Dextrose 250 ml @ 18.75 mls/ hr TITRATE IV Last administered on 05/15/18 01:50; Admin Dose 5.63 MLS/HR; Start 05/09/18 at 12:30 Miscellaneous Information (Pending Santyl Order For Wound Care) This patient goldman... PRN PRN XX WOUND CARE; Start 05/09/18 at 17:00 Vancomycin HCl (Vancomycin Oral Syringe) 250 mg Q6 PO Last administered on 05/20/18 18:57; Admin Dose 250 MG; Start 05/12/18 at 00:00 Metronidazole 100 ml @ 100 mls/hr Q8 IVPB Last administered on 05/20/18 21:03; Admin Dose 100 MLS/HR; Start 05/11/18 at 20:00 Collagenase (Santyl) 1 applic DAILY TOP Last administered on 05/20/18 09:49; Admin Dose 1 APPLIC; Start 05/13/18 at 09:00 Propofol 100 ml @ 2.64 mls/hr Q12H IV Last administered on 05/20/18 16:28; Admin Dose 18.48 MLS/HR; Start 05/12/18 at 18:30 Albuterol (Ventolin Hfa) 4 puff Q6H RESP THERAPY INH Last administered on 05/20/18 20:21; Admin Dose 4 PUFF; Start 05/12/18 at 20:00 Ipratropium [place] (Atrovent Hfa) 4 puff Q6H RESP THERAPY INH Last administered on 05/20/18 20:21; Admin Dose 4 PUFF; Start 05/12/18 at 20:00 Cholestyramine Resin (Questran Light) 4 gm BID PO Last administered on 05/20/18 20:58; Admin Dose 4 GM; Start 05/14/18 at 21:00 Heparin Sodium (Porcine) (Heparin (1000 Units/ml)) 2,800 unit AFTER DIALYSIS CATHETER Last administered on 05/20/18 18:08; Admin Dose 2,800 UNIT; Start 05/16/18 at 16:30 Furosemide (Lasix) 40 mg BID DIURETICS IV Last administered on 05/20/18 18:57; Admin Dose 40 MG; Start 05/19/18 at 09:00 Morphine Sulfate (morphine) 2 mg Q4H PRN IV SEVERE PAIN LEVEL 7-10 Last administered on 05/20/18 04:17; Admin Dose 2 MG; Start 05/19/18 at 11:00 Lorazepam (Ativan) 0.5 mg Q6H PRN PEG ANXIETY; Start 05/19/18 at 11:00 Epoetin Zen-epbx (RETACRIT(esrd)) 20,000 unit Tu@1700 SC Last administered on 05/19/18at 18:23; Admin Dose 20,000 UNIT; Start 05/19/18 at 17:00 Amiodarone HCl 900 mg/Dextrose 500 ml @ 0 mls/hr Q0M IV Last administered on 05/20/18at 07:21; Admin Dose 33.3 MLS/HR; Start 05/20/18 at 06:30 Evangelista Scanlon DO May 20, 2018 21:42
[2018-05-21] VITALS (44 sets, daily range): BP systolic 117–169; BP diastolic 53–95; PULSE 93–157; RESP 20–29
[2018-05-21] MEDS: VANCOMYCIN HCL 250 MG/5ML POSYG PO SCH ×5 (00:19→23:43)
[2018-05-21] MEDS: ALBUTEROL HFA 8 GM INHALER INH SCH ×4 (02:10→20:02)
[2018-05-21] MEDS: IPRATROPIUM (HFA) 12.9 GM INHALER INH SCH ×4 (02:11→20:02)
[2018-05-21] MEDS: PROPOFOL 100 ML IV SCH ×2 (03:27→07:19)
[2018-05-21] MEDS: metroNIDAZOLE 500 MG/NS (PMX) 100 ML IVPB SCH ×3 (06:02→21:07)
[2018-05-21] MEDS: CITRIC ACID/NA CITRATE 30 ML CUP PO SCH ×3 (06:02→21:07)
[2018-05-21] MEDS: AMIODARONE 900 MG in DEXTROSE 5% 482 ML IV SCH (06:02)
[2018-05-21] MEDS: FUROSEMIDE 40 MG INJ IV SCH ×2 (06:02→18:24)
[2018-05-21] MEDS ORDERED: POTASSIUM CHLORIDE 20 MEQ POWDER FOR ORAL SOLN GTB ONE (08:00)
[2018-05-21] MEDS ORDERED: ACETAZOLAMIDE 500 MG INJ IV ONE (08:00)
--- NOTE | 2018-05-21 08:20 | PN ---
DATE: 05/21/2018 SUBJECTIVE: The patient had hemodialysis yesterday, tolerated well with approximately 2 liters remov ed. The patient's urinary output is improving. No other acute events noted. No hemoptysis, hematem esis or hematochezia. OBJECTIVE: VITAL SIGNS: Blood pressure is 131/77, respirations 25, pulse 105, temperature 98.6. HEENT: Head is normocephalic. NECK: Supple. HEART: Regular rate. LUNGS: Show diminished breath sounds at the base. ABDOMEN: Soft, nontender to palpation without rebound or guarding. EXTREMITIES: Negative for clubbing, cyanosis. Diffuse anasarca. DERMATOLOGIC: No rashes. MUSCULOSKELETAL: No joint effusion. NEUROLOGIC: No change in exam. MEDICATIONS: Reviewed. LABORATORY DATA: Shows sodium 145, potassium 3.3, BUN 60, creatinine 1.65. White count 9.9, hemoglo bin 8.1, platelet count is 147. ASSESSMENT AND PLAN: 1. Nonoliguric acute kidney injury on top of chronic kidney disease with previous baseline creatinin e of 2.5 mg/dL. Etiology of acute kidney injury is secondary to shock, sepsis. The patient was init iated on dialysis for solute clearance and volume removal. The patient appears to be showing signs o f renal recovery as urinary output has markedly increased. Plan is to hold hemodialysis at this time . We will monitor renal function closely. We will continue current diuretic regimen. We will add A ldactone and Diamox to augment diuresis and monitor closely. 2. Hypokalemia and hypomagnesemia. Continue to monitor and replete. We will also add Aldactone. 3. Anemia. Continue to monitor hemoglobin and hematocrit levels. 4. Mineral bone disorder, monitor calcium and phosphorus levels. 5. Hypernatremia. Increase free water flushes 200 mL q.4h. 6. Volume overload, decompensated heart failure. The patient has significant edema. We will contin ue Lasix. We will add metolazone. We will monitor urinary output closely. If necessary we will con tinue dialysis for ultrafiltration. 7. Sepsis secondary to urinary tract infection, pneumonia. The patient is completing antibiotic cou rse. 8. Tachycardia arrhythmia. Continue medical management. 9. Ventilator-dependent respiratory failure. Vent settings and ABG was reviewed. Continue to monit or. 10. Dysphagia status post PEG. Continue tube feeding. 11. Acute encephalopathy, etiology is toxic metabolic. Dictated By: JEANA FINE/TABATHA Conf#: [id number] DID#: [id number] CC: QUINTEN UMAÑA MD; ROLAND GIRON MD;*EndCC*
[2018-05-21] MEDS: ZINC SULFATE 220 MG CAP GTB SCH (08:27)
[2018-05-21] MEDS: MULTIVITAMINS 30 ML CUP GTB SCH (08:33)
[2018-05-21] MEDS: ASCORBIC ACID 500 MG TAB GTB SCH (08:33)
[2018-05-21] MEDS: BALSAM PERU/CASTOR OIL 60 GM TUBE TOP SCH ×2 (08:33→20:35)
[2018-05-21] MEDS: COLLAGENASE 5 GM (UD JAR) TOP SCH (08:33)
[2018-05-21] MEDS: CHOLESTYRAMINE (LIGHT) 4 GM PACKET PO SCH ×2 (08:33→20:35)
[2018-05-21] MEDS: SPIRONOLACTONE 25 MG TAB GTB SCH (08:33)
--- NOTE | 2018-05-21 10:29 | CONS ---
Consult Date/Type/Reason Admit Date/Time May 06, 2018 at 17:38 Initial Consult Date 05/10/18 Type of Consult Pulmonary Requesting Provider: ROLAND GIRON MD Date/Time of Note DATE: 05/21/18 TIME: 10:20 Subjective Patient remains somnolent on mechanical ventilation. Objective Vital Signs Date Temp Pulse Resp B/P (MAP) Pulse Ox O2 O2 Flow FiO2 Time Delivery Rate 05/21/18 100 22 134/68 98 Mechanical 10:00 (90) Ventilator 05/21/18 99.0 08:00 05/21/18 30 05:19 Intake and Output 05/20/18 05/20/18 05/21/18 1515:00 23:00 07:00 IntakeIntake Total 1105.195 ml 711.44 ml 761.44 ml OutputOutput Total 605 ml 3195 ml 900 ml BalanceBalance 500.195 ml -2483.56 ml -138.56 ml Exam GENERAL: Elderly appearing lady on mechanical ventilation orally intubated VITAL SIGNS: per chart NECK: Supple. No JVD or lymphadenopathy. CARDIAC EXAM: S1, S2. No added sounds or murmurs. CHEST: Diminished air entry bilaterally, bilateral rales ABDOMEN: Soft, nontender. No guarding or rebound. EXTREMITIES: No cyanosis, clubbing edema +2 NEUROLOGIC: Generalized weakness. Vent Setting Ventilator Support Mode: AC Fraction of Inspired Oxygen pe: 30 Positive End Expiratory Pressu: 5.0 Results/Medications Result Diagram: 05/21/18 0426 05/21/18 0426 Results 24 hrs Laboratory Tests Test 05/21/18 04:26 White Blood Count 9.9 Red Blood Count 2.52 L Hemoglobin 8.1 L Hematocrit 27.1 L Mean Corpuscular Volume 107.5 H Mean Corpuscular Hemoglobin 32.1 Mean Corpuscular Hemoglobin Concent 29.9 L Red Cell Distribution Width 18.1 H Platelet Count 147 Mean Platelet Volume 9.9 Immature Granulocytes % 0.800 H Neutrophils % 78.4 H Lymphocytes % 10.3 L Monocytes % 7.8 Eosinophils % 2.3 Basophils % 0.4 Nucleated Red Blood Cells % 0.0 Immature Granulocytes # 0.080 H Neutrophils # 7.8 H Lymphocytes # 1.0 Monocytes # 0.8 Eosinophils # 0.2 Basophils # 0.0 Nucleated Red Blood Cells # 0.0 Sodium Level 145 H Potassium Level 3.3 L Chloride Level 106 Carbon Dioxide Level 28 Anion Gap 11 Blood Urea Nitrogen 60 H Creatinine 1.65 H Est Glomerular Filtrat Rate mL/min Glucose Level 90 Calcium Level 8.6 Phosphorus Level 4.2 Magnesium Level 2.1 Medications Current Medications IV Flush (NS 10 ml) 10 ml PRN IV ; Start 05/06/18 at 20:30 Ascorbic Acid (Vitamin C) 500 mg DAILY GTB Last administered on 05/21/18 08:33; Admin Dose 500 MG; Start 05/07/18 at 09:00 Albuterol/ Ipratropium (Duoneb) 3 ml Q2H RESP THERAPY PRN HHN SHORTNESS OF BREATH; Start 05/06/18 at 23:30 Zinc Sulfate (Zinc Sulfate) 220 mg DAILY GTB Last administered on 05/21/18 08:27; Admin Dose 220 MG; Start 05/07/18 at 09:00 Ondansetron HCl (Zofran Tab) 4 mg Q6H PRN GTB NAUSEA AND/OR VOMITING; Start 05/07/18 at 00:15 Multivitamins (Multivitamin) 30 ml DAILY GTB Last administered on 05/21/18 08:33; Admin Dose 30 ML; Start 05/07/18 at 09:00 Norepinephrine 250 ml @ 1.875 mls/ hr TITRATE IV Last administered on 05/08/18 13:33; Admin Dose 33.75 MLS/HR; Start 05/08/18 at 03:00 Citric Acid/ Sodium Citrate (Bicitra) 30 ml Q8 PO Last administered on 05/21/18 06:02; Admin Dose 30 ML; Start 05/09/18 at 08:00 Phenylephrine HCl 80 mg/Dextrose 250 ml @ 18.75 mls/ hr TITRATE IV Last administered on 05/15/18 01:50; Admin Dose 5.63 MLS/HR; Start 05/09/18 at 12:30 [facility] This patient goldman... PRN PRN XX WOUND CARE; Start 05/09/18 at 17:00 Vancomycin HCl (Vancomycin Oral Syringe) 250 mg Q6 PO Last administered on 05/21/18 06:02; Admin Dose 250 MG; Start 05/12/18 at 00:00 Metronidazole 100 ml @ 100 mls/hr Q8 IVPB Last administered on 05/21/18 06:02; Admin Dose 100 MLS/HR; Start 05/11/18 at 20:00 Collagenase (Santyl) 1 applic DAILY TOP Last administered on 05/21/18 08:33; Admin Dose 1 APPLIC; Start 05/13/18 at 09:00 Propofol 100 ml @ 2.64 mls/hr Q12H IV Last administered on 05/21/18 07:19; Admin Dose 18.48 MLS/HR; Start 05/12/18 at 18:30 Albuterol (Ventolin Hfa) 4 puff Q6H RESP THERAPY INH Last administered on 05/21/18 07:36; Admin Dose 4 PUFF; Start 05/12/18 at 20:00 Ipratropium [place] (Atrovent Hfa) 4 puff Q6H RESP THERAPY INH Last administered on 05/21/18 07:36; Admin Dose 4 PUFF; Start 05/12/18 at 20:00 Cholestyramine Resin (Questran Light) 4 gm BID PO Last administered on 05/21/18 08:33; Admin Dose 4 GM; Start 05/14/18 at 21:00 Heparin Sodium (Porcine) (Heparin (1000 Units/ml)) 2,800 unit AFTER DIALYSIS CATHETER Last administered on 05/20/18 18:08; Admin Dose 2,800 UNIT; Start 05/16/18 at 16:30 Furosemide (Lasix) 40 mg BID DIURETICS IV Last administered on 05/21/18 06:02; Admin Dose 40 MG; Start 05/19/18 at 09:00 Morphine Sulfate (morphine) 2 mg Q4H PRN IV SEVERE PAIN LEVEL 7-10 Last administered on 05/20/18 04:17; Admin Dose 2 MG; Start 05/19/18 at 11:00 Epoetin Zen-epbx (RETACRIT(esrd)) 20,000 unit Tu@1700 SC Last administered on 05/19/18 18:23; Admin Dose 20,000 UNIT; Start 05/19/18 at 17:00 Spironolactone (Aldactone) 50 mg DAILY GTB Last administered on 05/21/18 08:33; Admin Dose 50 MG; Start 05/21/18 at 09:00 Midazolam HCl 50 ml @ 1 mls/hr TITRATE IV ; Start 05/21/18 at 10:30 Assessment/Plan Hospital Course (Demo Recall) IMP: 1. Septic shock likely secondary to recent UTI now C. difficile colitis, possible healthcare associated pneumonia also 2. Acute Renal Failure--likely non-oliguric ATN 3. Resolved metabolic acidosis 4. Encephalopathy--toxic-metabolic 2/2 infection and ARF, in addition to baseline 5. Anemia--r/o acute GIB 6. H/O abdominal abscess 7. Acute hypoxemic respiratory failure secondary to above, continue mechanical ventilation 8. Atrial fibrillation with rapid ventricular rate RECS: 1. Hemodialysis as tolerated 2. Continue mechanical ventilation, failed various weaning trials. Would recommend proceed to tracheostomy if family wish to continue current measures 3. Abx as per ID 4. Continue tube feeding as tolerated 5. Aspiration precautions pulmonary toilet 6. Monitor H&H post transfusion 7. Rate control per cardiology continue amiodarone drip for now. Continue supportive care, Critical care time 40 minutes. LAURA JENKINS MD, [facility] May 21, 2018 10:29
--- NOTE | 2018-05-21 11:18 | CONS ---
[facility] HCIS Consult Follow-up Patient Name: Zuly Mcwilliams Unit Number: [id number] Date of : 1945 Patient Status: Admitted Inpatient Attending Doctor: Roland Giron MD Edit: CELESTINE SANCHEZ M.D. 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 colonization of the airway by pseudomonas and ESBL+klebsiella - h/o possible, recurrent HCAP due to pseudomonas and ESBL+klebsiella - h/o recurrent HCAP due to MRSA and Enterobacter (culture of tracheal aspirate on 07/16/2017 that was collected at [facility]) . Pt took vancomycin and ceftazidime - h/o acute respiratory distress post-thoracentesis, resolved - h/o thoracentesis on 07/18/2017, transudative (protein <2, LDH 279) - h/o bleeding from the trach site - h/o septic shock due to pneumonia, ARDS, bacteremia, fungemia - h/o ARDS - h/o smoking - COPD - ILD # Cardiac - PAF, currently sinus tachycardia # GI - C diff colitis, diagnosed on 05/11/2018 - h/o intermittent diarrhea, Pt had multiple negative C. diff tests at [facility] at OSH in the past - dysphagia - h/o PEG placement 06/13/2018 - protein calorie malnutrition - h/o coffee ground emesis/UGIB 12/23/2017 due to deep ulceration of distal esophagus and gastritis on EGD 12/26/2017. No e/o H. pylori - h/o possible appendicitis on CT on 11/22/2017, Pt took ertapenem (11/24/2017- 12/01/2017) - h/o extensive adhesions lower abdominal and pelvis between small bowel to each other and to colon and to abdominal wall, anterior pelvic wall chronic abscess secondary to probably an old perforated diverticulitis, torsion of small bowel around these dense adhesion causing multiple obstructive points - h/o laparoscopic exploration and extensive lysis of adhesions and drainage of anterior pelvic wall abscess 09/16/2017. Cultures were negative, no e/o malignancy. Pt took pip/tazo (09/16/2017-09/26/2017) - h/o partial obstruction mid jejunum in L anterior central pelvis with suggestion of a 3 cm soft tissue mass on CT 08/28/2017 - h/o internal stomal deep ulcer behind the internal bumper, gastritis and esophagitis, Rodriguez's cannot be ruled out, per EGD with biopsy 07/23/2017 - h/o GIB s/p flex sig showed polyp; stool OB negative on 06/29/17 - h/o stool OB positive status - h/o SBO and ileus due to pain meds - h/o EGD and exchange of PEG on 09/01/2017 - h/o mildly elevated CEA # renal/ - recurrent NATHAN on CKD - started on HD on 05/15/2018, via Juan in R groin - 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 Her strain of CRE was sensitive to colistin, Avycaz, and Vabomere but resistant to Zerbaxa (reported on 05/19/2018) - Hyponatremia - Hyperkalemia, now hypokalemia - Metabolic acidosis - adrenal insufficiency - h/o vaginal bleed - h/o colonization of urinary tract by ESBL+klebsiella, VRE - h/o recurrent, symptomatic UTI due to carbapenem-resistant kleb (MDR strain) per urine culture 10/04/17, 10/09/17, 10/21/2017, P took colistin (10/09/2017- 10/15/2017), fosfomycin for carbapenemase-producing klebsiella and VRE on 10/25/2017 and 10/28/2017 - h/o funguria - h/o urinary retention # fungemia, bacteremia - h/o bacteremia due to coag negative Staph, probable contaminant as her WBC lev el improved initially without antibiotic - 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 improved. Probable manifestation of endocarditis. Pt declined MRI on 08/06/2017 - h/o infection of R toes due to pseudomonas. coagulase negative Staph likely a colonizer. resolved - h/o intertrigo of the groin, resolved with nystatin powder - h/o scabies, locally crusted lesion over L scapula, s/p permethrin cream and pGT ivermectin on 08/11/2017, 08/12/2017, 08/19/2017. Repeat skin scraping on 08/21/2017 was negative for scabies # psych, neuro - acute toxic metabolic encephalopathy - decreased hearing b/l - h/o critical illness polyneuropathy - anxiety/depression, bipolar d/o, seen by Psychiatry in the past - chronic pain syndrome - h/o medical non-compliance: she would refuse her medications, treatment and straight catheterization at times # hematological, vascular - chronic anemia requiring blood transfusion intermittently - Macrocytic anemia - 3.1 cm AAA on imaging - PVD Recommendations: - continue pGT vancomycin (05/11/2018-) and IV metronidazole (05/11/2018-) for C diff colitis, plan for 10 days. Pt completed meropenem for HCAP (05/13/2018- 05/19/2018) Management d/w RN Agnes and with Dr. Sanchez Critical care time spent: 40 min Consultation Date/Type/Reason Admit Date/Time May 06, 2018 at 17:38 Initial Consult Date 05/07/18 Type of Consult Infectious Disease Requesting Provider: ROLAND GIRON MD Date/Time of Note DATE: 05/21/18 TIME: 11:17 24 HR Interval Summary Free Text/Dictation Pt was weaned off Amiodarone drip; Small amount of coffee ground material noted during GT residual check and Pepcid was added; Pulmonary recommending tracheostomy per d/w [employer]SE[employer] OPERATOR. Subjective hx not possible: pt non-verbal, pt critical status Exam/Review of Systems Exam Vitals Vital Signs Date Temp Pulse Resp B/P (MAP) Pulse Ox O2 O2 Flow FiO2 Time Delivery Rate 05/21/18 100 22 134/68 98 Mechanical 10:00 (90) Ventilator 05/21/18 30 08:00 05/21/18 99.0 08:00 Intake and Output 05/20/18 05/20/18 05/21/18 1414:59 22:59 06:59 IntakeIntake Total 988.495 ml 811.44 ml 611.44 ml OutputOutput Total 740 ml 3160 ml 900 ml BalanceBalance 248.495 ml -2348.56 ml -288.56 ml Exam Constitutional: well developed, non-verbal, frail, obese, other (chronically debilitated, orally intubated) Head: normocephalic, atraumatic Eyes: nl conjunctiva, nl lids ENMT: nl external ears & nose, intubated, other (orally intubated, lips are dry with eschar noted on bottom lips) Neck: other (old trach site with with dressing dry and intact) Respiratory: crackles/rales, diminished breath sounds, other (on ventilator support, AC, FiO2 40%) Cardiovascular: regular rate and rhythm (mildly tachycardic), nl pulses, edema Gastrointestinal: soft, non-tender, bowel sounds, other (G-tub with TF in progress; liquid brown stool noted and RN was notified) No distended Genitourinary - Female: other (Garza in place with yellow urine; HD catheter in R groin c/d/i) Musculoskeletal: other (bilateral foot drop) Extremities: edema (all four extremities), pitting pedal edema, other (RUE PICC c/d/i) Neurological: other (sedated with Diprivan but opens eyes detention with verbal and tactile stimuli) Skin: other (some weeping noted on UE; R foot and L [place] are wrapped with Kerlix; wounds- nurses notes and photos reviewed in chart) Results Result Diagram: 05/21/18 0426 05/21/18 0426 Results 24hrs Laboratory Tests Test 05/21/18 04:26 White Blood Count 9.9 Red Blood Count 2.52 L Hemoglobin 8.1 L Hematocrit 27.1 L Mean Corpuscular Volume 107.5 H Mean Corpuscular Hemoglobin 32.1 Mean Corpuscular Hemoglobin Concent 29.9 L Red Cell Distribution Width 18.1 H Platelet Count 147 Mean Platelet Volume 9.9 Immature Granulocytes % 0.800 H Neutrophils % 78.4 H Lymphocytes % 10.3 L Monocytes % 7.8 Eosinophils % 2.3 Basophils % 0.4 Nucleated Red Blood Cells % 0.0 Immature Granulocytes # 0.080 H Neutrophils # 7.8 H Lymphocytes # 1.0 Monocytes # 0.8 Eosinophils # 0.2 Basophils # 0.0 Nucleated Red Blood Cells # 0.0 Sodium Level 145 H Potassium Level 3.3 L Chloride Level 106 Carbon Dioxide Level 28 Anion Gap 11 Blood Urea Nitrogen 60 H Creatinine 1.65 H Est Glomerular Filtrat Rate mL/min Glucose Level 90 Calcium Level 8.6 Phosphorus Level 4.2 Magnesium Level 2.1 Imaging Imaging CXR 05/17/2018: No significant change in predominantly diffuse mixed interstitial opacities, representing edema/ARDS versus pneumonia. Medications Medication Current Medications IV Flush (NS 10 ml) 10 ml PRN IV ; Start 05/06/18 at 20:30 Ascorbic Acid (Vitamin C) 500 mg DAILY GTB Last administered on 05/21/18at 08:33; Admin Dose 500 MG; Start 05/07/18 at 09:00 Albuterol/ Ipratropium (Duoneb) 3 ml Q2H RESP THERAPY PRN HHN SHORTNESS OF BREATH; Start 05/06/18 at 23:30 Zinc Sulfate (Zinc Sulfate) 220 mg DAILY GTB Last administered on 05/21/18 08:27; Admin Dose 220 MG; Start 05/07/18 at 09:00 Ondansetron HCl (Zofran Tab) 4 mg Q6H PRN GTB NAUSEA AND/OR VOMITING; Start 05/07/18 at 00:15 Multivitamins (Multivitamin) 30 ml DAILY GTB Last administered on 05/21/18 08:33; Admin Dose 30 ML; Start 05/07/18 at 09:00 Norepinephrine 250 ml @ 1.875 mls/ hr TITRATE IV Last administered on 05/08 13:33; Admin Dose 33.75 MLS/HR; Start 05/08/18 at 03:00 Citric Acid/ Sodium Citrate (Bicitra) 30 ml Q8 PO Last administered on 05/21/18 06:02; Admin Dose 30 ML; Start 05/09/18 at 08:00 Phenylephrine HCl 80 mg/Dextrose 250 ml @ 18.75 mls/ hr TITRATE IV Last administered on 05/15/18 01:50; Admin Dose 5.63 MLS/HR; Start 05/09/18 at 12:30 Miscellaneous Information (Pending Santyl Order For Wound Care) This patient goldman... PRN PRN XX WOUND CARE; Start 05/09/18 at 17:00 Vancomycin HCl (Vancomycin Oral Syringe) 250 mg Q6 PO Last administered on 05/21/18 06:02; Admin Dose 250 MG; Start 05/12/18 at 00:00 Metronidazole 100 ml @ 100 mls/hr Q8 IVPB Last administered on 05/21/18 06:02; Admin Dose 100 MLS/HR; Start 05/11/18 at 20:00 Collagenase (Santyl) 1 applic DAILY TOP Last administered on 05/21/18 08:33; Admin Dose 1 APPLIC; Start 05/13/18 at 09:00 Propofol 100 ml @ 2.64 mls/hr Q12H IV Last administered on 05/21/18 07:19; Admin Dose 18.48 MLS/HR; Start 05/12/18 at 18:30 Albuterol (Ventolin Hfa) 4 puff Q6H RESP THERAPY INH Last administered on 05/21/18 07:36; Admin Dose 4 PUFF; Start 05/12/18 at 20:00 Ipratropium [place] (Atrovent Hfa) 4 puff Q6H RESP THERAPY INH Last admin istered on 05/21/18 07:36; Admin Dose 4 PUFF; Start 05/12/18 at 20:00 Cholestyramine Resin (Questran Light) 4 gm BID PO Last administered on 05/21/18 08:33; Admin Dose 4 GM; Start 05/14/18 at 21:00 Heparin Sodium (Porcine) (Heparin (1000 Units/ml)) 2,800 unit AFTER DIALYSIS CATHETER Last administered on 05/20/18 18:08; Admin Dose 2,800 UNIT; Start 05/16/18 at 16:30 Furosemide (Lasix) 40 mg BID DIURETICS IV Last administered on 05/21/18 06:02; Admin Dose 40 MG; Start 05/19/18 at 09:00 Morphine Sulfate (morphine) 2 mg Q4H PRN IV SEVERE PAIN LEVEL 7-10 Last administered on 05/20/18 04:17; Admin Dose 2 MG; Start 05/19/18 at 11:00 Epoetin Zen-epbx (RETACRIT(esrd)) 20,000 unit Tu@1700 SC Last administered on 05/19/18 18:23; Admin Dose 20,000 UNIT; Start 05/19/18 at 17:00 Spironolactone (Aldactone) 50 mg DAILY GTB Last administered on 05/21/18 08:33; Admin Dose 50 MG; Start 05/21/18 at 09:00 Midazolam HCl 50 ml @ 1 mls/hr TITRATE IV ; Start 05/21/18 at 10:30 Famotidine (Pepcid Iv) 20 mg DAILY IV ; Start 05/21/18 at 11:30 LAURA JOSHI NP May 21, 2018 11:18
[2018-05-21] MEDS: MIDAZOLAM (DRIP) 50 mg/50 mL 50 ML IV SCH ×2 (11:57→23:44)
[2018-05-21] MEDS: FAMOTIDINE 20 MG INJ IV SCH (11:57)
--- NOTE | 2018-05-21 12:20 | CONS ---
Assessment/Plan Assessment/Plan Assessment/Plan (Daily) Propofol gtt 1. Malfunctioning gastrostomy tube. -resolved 2. Renal failure.- on HD 3. Sepsis. -with mx organisms at trach site wound 4. Chronic obstructive pulmonary disease. 5. Bipolar. 6. Paroxysmal atrial fibrillation. 7. Anemia of chronic disease. 8. CHF 9. Elevated alk phos with h/o hepatic venous congestion seen on abd CT in 2018 -resolved 10. Respiratory failure 11. Diarrhea improving with questran 12. UTI with mx organisms 13. H/O deep esophageal ulcer accident 14 mild GI bleeding PLAN: Monitor residuals q 4 hours Continue pepcid and questran and vanco PO Will complete the course of vancomycin and then taper the dose slowly to prevent the recurrence Consultation Date/Type/Reason Admit Date/Time May 06, 2018 at 17:38 Initial Consult Date 05/10/18 Requesting Provider: ROLAND GIRON MD Date/Time of Note DATE: 05/21/18 TIME: 12:19 24 HR Interval Summary Free Text/Dictation As per the staff patient had a coffee color G-tube aspirate. No melena or hematochezia Exam/Review of Systems Exam Vitals Vital Signs Date Temp Pulse Resp B/P (MAP) Pulse Ox O2 O2 Flow FiO2 Time Delivery Rate 05/21/18 102 28 152/95 97 Mechanical 11:00 (114) Ventilator 05/21/18 30 08:00 05/21/18 99.0 08:00 Intake and Output 05/20/18 05/20/18 05/21/18 1515:00 23:00 07:00 IntakeIntake Total 1105.195 ml 711.44 ml 761.44 ml OutputOutput Total 605 ml 3195 ml 900 ml BalanceBalance 500.195 ml -2483.56 ml -138.56 ml Head: normocephalic, atraumatic Respiratory: other (Patient is on the vent) Results Result Diagram: 05/21/18 0426 05/21/18 0426 Results 24hrs Laboratory Tests Test 05/21/18 04:26 White Blood Count 9.9 Red Blood Count 2.52 L Hemoglobin 8.1 L Hematocrit 27.1 L Mean Corpuscular Volume 107.5 H Mean Corpuscular Hemoglobin 32.1 Mean Corpuscular Hemoglobin Concent 29.9 L Red Cell Distribution Width 18.1 H Platelet Count 147 Mean Platelet Volume 9.9 Immature Granulocytes % 0.800 H Neutrophils % 78.4 H Lymphocytes % 10.3 L Monocytes % 7.8 Eosinophils % 2.3 Basophils % 0.4 Nucleated Red Blood Cells % 0.0 Immature Granulocytes # 0.080 H Neutrophils # 7.8 H Lymphocytes # 1.0 Monocytes # 0.8 Eosinophils # 0.2 Basophils # 0.0 Nucleated Red Blood Cells # 0.0 Sodium Level 145 H Potassium Level 3.3 L Chloride Level 106 Carbon Dioxide Level 28 Anion Gap 11 Blood Urea Nitrogen 60 H Creatinine 1.65 H Est Glomerular Filtrat Rate mL/min Glucose Level 90 Calcium Level 8.6 Phosphorus Level 4.2 Magnesium Level 2.1 Medications Medication Current Medications IV Flush (NS 10 ml) 10 ml PRN IV ; Start 05/06/18 at 20:30 Ascorbic Acid (Vitamin C) 500 mg DAILY GTB Last administered on 05/21/18 08:33; Admin Dose 500 MG; Start 05/07/18 at 09:00 Albuterol/ Ipratropium (Duoneb) 3 ml Q2H RESP THERAPY PRN HHN SHORTNESS OF BREATH; Start 05/06/18 at 23:30 Zinc Sulfate (Zinc Sulfate) 220 mg DAILY GTB Last administered on 05/21/18 08:27; Admin Dose 220 MG; Start 05/07/18 at 09:00 Ondansetron HCl (Zofran Tab) 4 mg Q6H PRN GTB NAUSEA AND/OR VOMITING; Start 05/07/18 at 00:15 Multivitamins (Multivitamin) 30 ml DAILY GTB Last administered on 05/21/18 08:33; Admin Dose 30 ML; Start 05/07/18 at 09:00 Norepinephrine 250 ml @ 1.875 mls/ hr TITRATE IV Last administered on 05/08/18 13:33; Admin Dose 33.75 MLS/HR; Start 05/08/18 at 03:00 Citric Acid/ Sodium Citrate (Bicitra) 30 ml Q8 PO Last administered on 05/21/18 06:02; Admin Dose 30 ML; Start 05/09/18 at 08:00 Phenylephrine HCl 80 mg/Dextrose 250 ml @ 18.75 mls/ hr TITRATE IV Last administered on 05/15/18 01:50; Admin Dose 5.63 MLS/HR; Start 05/09/18 at 12:30 Miscellaneous Information (Pending Santyl Order For Wound Care) This patient goldman... PRN PRN XX WOUND CARE; Start 05/09/18 at 17:00 Vancomycin HCl (Vancomycin Oral Syringe) 250 mg Q6 PO Last administered on 05/21/18 06:02; Admin Dose 250 MG; Start 05/12/18 at 00:00 Metronidazole 100 ml @ 100 mls/hr Q8 IVPB Last administered on 05/21/18 06:02; Admin Dose 100 MLS/HR; Start 05/11/18 at 20:00 Collagenase (Santyl) 1 applic DAILY TOP Last administered on 05/21/18 08:33; Admin Dose 1 APPLIC; Start 05/13/18 at 09:00 Propofol 100 ml @ 2.64 mls/hr Q12H IV Last administered on 05/21/18 07:19; Admin Dose 18.48 MLS/HR; Start 05/12/18 at 18:30 Albuterol (Ventolin Hfa) 4 puff Q6H RESP THERAPY INH Last administered on 05/21/18 07:36; Admin Dose 4 PUFF; Start 05/12/18 at 20:00 Ipratropium [place] (Atrovent Hfa) 4 puff Q6H RESP THERAPY INH Last administered on 05/21/18 07:36; Admin Dose 4 PUFF; Start 05/12/18 at 20:00 Cholestyramine Resin (Questran Light) 4 gm BID PO Last administered on 05/21/18 08:33; Admin Dose 4 GM; Start 05/14/18 at 21:00 Heparin Sodium (Porcine) (Heparin (1000 Units/ml)) 2,800 unit AFTER DIALYSIS CATHETER Last administered on 05/20/18 18:08; Admin Dose 2,800 UNIT; Start 05/16/18 at 16:30 Furosemide (Lasix) 40 mg BID DIURETICS IV Last administered on 05/21/18 06:02; Admin Dose 40 MG; Start 05/19/18 at 09:00 Morphine Sulfate (morphine) 2 mg Q4H PRN IV SEVERE PAIN LEVEL 7-10 Last administered on 05/20/18 04:17; Admin Dose 2 MG; Start 05/19/18 at 11:00 Epoetin Zen-epbx (RETACRIT(esrd)) 20,000 unit Tu@1700 SC Last administered on 05/19/18 18:23; Admin Dose 20,000 UNIT; Start 05/19/18 at 17:00 Spironolactone (Aldactone) 50 mg DAILY GTB Last administered on 05/21/18 08:33; Admin Dose 50 MG; Start 05/21/18 at 09:00 Midazolam HCl 50 ml @ 1 mls/hr TITRATE IV Last administered on 05/21/18 11:57; Admin Dose 1 MLS/HR; Start 05/21/18 at 10:30 Famotidine (Pepcid Iv) 20 mg DAILY IV Last administered on 05/21/18 11:57; Admin Dose 20 MG; Start 05/21/18 at 11:30 QUINTEN UMAÑA MD May 21, 2018 12:20
--- NOTE | 2018-05-21 13:32 | PN ---
Date/Time of Note Date/Time of Note DATE: 05/21/18 TIME: 13:29 Assessment/Plan VTE Prophylaxis Risk score (from Ns)>0 risk: 11 SCD applied (from Ns): Yes Pharmacological prophylaxis: heparin Lines/Catheters IV Catheter Type (from Nrsg): Juan Central line still needed: Yes Urinary Cath still in place: Yes Reason Cath still needed: urinary retention Assessment/Plan Hospital Course Patient continues on ventilatory support, Versed drip for sedation, tolerates G- tube feeding. Assessment/Plan -Atrial fibrillation was rapid ventricular response, s/p amiodarone drip. -Septic shock secondary to urinary tract infection, anterior neck soft tissue infection, and C. difficile colitis, resolving. Continue antibiotics per ID. Dr. Black is following in infection disease consultation. -Acute respiratory failure requiring intubation and ventilatory support. Dr. Lambert is following in pulmonology consultation. -Acute kidney injury on chronic kidney disease. Started on HD this admission. Dr. Mckeon is following in nephrology consultation. -Anemia of chronic inflammation, stool for OB is negative, status post blood transfusion. Continue Epogen. -Metabolic acidosis, resolved. -Acute diastolic congestive heart failure. Dr. Scanlon is following in cardiology consultation. -Paroxysmal atrial fibrillation -COPD -Dysphagia with PEG. -G-tube mild malfunction, changed by GI Dr. Carolina is following in gastroenterology consultation. -Obesity Dr. Eisenberg spoke with patient son Johnson yesterday, updated him on patient's condition, patient son wants patient to continue to be full code for aggressive treatment including ventilatory support and dialysis. Critical care time spent is 30 minutes. Further recommendations based on clinical course. Plan of care discussed with Dr. Eisenberg. Result Diagram: 05/21/18 0426 05/21/18 0426 Results 24hrs Laboratory Tests Test 05/21/18 04:26 White Blood Count 9.9 Red Blood Count 2.52 L Hemoglobin 8.1 L Hematocrit 27.1 L Mean Corpuscular Volume 107.5 H Mean Corpuscular Hemoglobin 32.1 Mean Corpuscular Hemoglobin Concent 29.9 L Red Cell Distribution Width 18.1 H Platelet Count 147 Mean Platelet Volume 9.9 Immature Granulocytes % 0.800 H Neutrophils % 78.4 H Lymphocytes % 10.3 L Monocytes % 7.8 Eosinophils % 2.3 Basophils % 0.4 Nucleated Red Blood Cells % 0.0 Immature Granulocytes # 0.080 H Neutrophils # 7.8 H Lymphocytes # 1.0 Monocytes # 0.8 Eosinophils # 0.2 Basophils # 0.0 Nucleated Red Blood Cells # 0.0 Sodium Level 145 H Potassium Level 3.3 L Chloride Level 106 Carbon Dioxide Level 28 Anion Gap 11 Blood Urea Nitrogen 60 H Creatinine 1.65 H Est Glomerular Filtrat Rate mL/min Glucose Level 90 Calcium Level 8.6 Phosphorus Level 4.2 Magnesium Level 2.1 Exam/Review of Systems Exam Vitals Vital Signs Date Temp Pulse Resp B/P (MAP) Pulse Ox O2 O2 Flow FiO2 Time Delivery Rate 05/21/18 102 12:00 05/21/18 28 152/95 97 Mechanical 11:00 (114) Ventilator 05/21/18 30 08:00 05/21/18 99.0 08:00 Intake and Output 05/20/18 05/20/18 05/21/18 1515:00 23:00 07:00 IntakeIntake Total 1105.195 ml 711.44 ml 761.44 ml OutputOutput Total 605 ml 3195 ml 900 ml BalanceBalance 500.195 ml -2483.56 ml -138.56 ml Exam Constitutional: frail, orally intubated Respiratory: diminished breath sounds Cardiovascular: irregular rate and rhythm Gastrointestinal: soft, tender, other (G-tube) Musculoskeletal: nl extremities to inspection Extremities: normal pulses Neurological: sedated Results Results 24hrs Laboratory Tests Test 05/21/18 04:26 White Blood Count 9.9 Red Blood Count 2.52 L Hemoglobin 8.1 L Hematocrit 27.1 L Mean Corpuscular Volume 107.5 H Mean Corpuscular Hemoglobin 32.1 Mean Corpuscular Hemoglobin Concent 29.9 L Red Cell Distribution Width 18.1 H Platelet Count 147 Mean Platelet Volume 9.9 Immature Granulocytes % 0.800 H Neutrophils % 78.4 H Lymphocytes % 10.3 L Monocytes % 7.8 Eosinophils % 2.3 Basophils % 0.4 Nucleated Red Blood Cells % 0.0 Immature Granulocytes # 0.080 H Neutrophils # 7.8 H Lymphocytes # 1.0 Monocytes # 0.8 Eosinophils # 0.2 Basophils # 0.0 Nucleated Red Blood Cells # 0.0 Sodium Level 145 H Potassium Level 3.3 L Chloride Level 106 Carbon Dioxide Level 28 Anion Gap 11 Blood Urea Nitrogen 60 H Creatinine 1.65 H Est Glomerular Filtrat Rate mL/min Glucose Level 90 Calcium Level 8.6 Phosphorus Level 4.2 Magnesium Level 2.1 Medications Medication Current Medications IV Flush (NS 10 ml) 10 ml PRN IV ; Start 05/06/18 at 20:30 Ascorbic Acid (Vitamin C) 500 mg DAILY GTB Last administered on 05/21/18 08:33; Admin Dose 500 MG; Start 05/07/18 at 09:00 Albuterol/ Ipratropium (Duoneb) 3 ml Q2H RESP THERAPY PRN HHN SHORTNESS OF BREATH; Start 05/06/18 at 23:30 Zinc Sulfate (Zinc Sulfate) 220 mg DAILY GTB Last administered on 05/21/18 08:27; Admin Dose 220 MG; Start 05/07/18 at 09:00 Ondansetron HCl (Zofran Tab) 4 mg Q6H PRN GTB NAUSEA AND/OR VOMITING; Start 05/07/18 at 00:15 Multivitamins (Multivitamin) 30 ml DAILY GTB Last administered on 05/21/18 08:33; Admin Dose 30 ML; Start 05/07/18 at 09:00 Norepinephrine 250 ml @ 1.875 mls/ hr TITRATE IV Last administered on 05/08/18 13:33; Admin Dose 33.75 MLS/HR; Start 05/08/18 at 03:00 Citric Acid/ Sodium Citrate (Bicitra) 30 ml Q8 PO Last administered on 05/21/18 06:02; Admin Dose 30 ML; Start 05/09/18 at 08:00 Phenylephrine HCl 80 mg/Dextrose 250 ml @ 18.75 mls/ hr TITRATE IV Last administered on 05/15/18 01:50; Admin Dose 5.63 MLS/HR; Start 05/09/18 at 12:30 [facility] This patient goldman... PRN PRN XX WOUND CARE; Start 05/09/18 at 17:00 Vancomycin HCl (Vancomycin Oral Syringe) 250 mg Q6 PO Last administered on 05/21/18 13:09; Admin Dose 250 MG; Start 05/12/18 at 00:00 Metronidazole 100 ml @ 100 mls/hr Q8 IVPB Last administered on 05/21/18 06:02; Admin Dose 100 MLS/HR; Start 05/11/18 at 20:00 Collagenase (Santyl) 1 applic DAILY TOP Last administered on 05/21/18 08:33; Admin Dose 1 APPLIC; Start 05/13/18 at 09:00 Propofol 100 ml @ 2.64 mls/hr Q12H IV Last administered on 05/21/18 07:19; Admin Dose 18.48 MLS/HR; Start 05/12/18 at 18:30 Albuterol (Ventolin Hfa) 4 puff Q6H RESP THERAPY INH Last administered on 05/21/18 07:36; Admin Dose 4 PUFF; Start 05/12/18 at 20:00 Ipratropium [place] (Atrovent Hfa) 4 puff Q6H RESP THERAPY INH Last administered on 05/21/18 07:36; Admin Dose 4 PUFF; Start 05/12/18 at 20:00 Cholestyramine Resin (Questran Light) 4 gm BID PO Last administered on 05/21/18 08:33; Admin Dose 4 GM; Start 05/14/18 at 21:00 Heparin Sodium (Porcine) (Heparin (1000 Units/ml)) 2,800 unit AFTER DIALYSIS CATHETER Last administered on 05/20/18 18:08; Admin Dose 2,800 UNIT; Start 05/16/18 at 16:30 Furosemide (Lasix) 40 mg BID DIURETICS IV Last administered on 05/21/18 06:02; Admin Dose 40 MG; Start 05/19/18 at 09:00 Morphine Sulfate (morphine) 2 mg Q4H PRN IV SEVERE PAIN LEVEL 7-10 Last administered on 05/20/18 04:17; Admin Dose 2 MG; Start 05/19/18 at 11:00 Epoetin Zen-epbx (RETACRIT(esrd)) 20,000 unit Tu@1700 SC Last administered on 05/19/18 18:23; Admin Dose 20,000 UNIT; Start 05/19/18 at 17:00 Spironolactone (Aldactone) 50 mg DAILY GTB Last administered on 05/21/18 08:33; Admin Dose 50 MG; Start 05/21/18 at 09:00 Midazolam HCl 50 ml @ 1 mls/hr TITRATE IV Last administered on 4/4/19at 11:57; Admin Dose 1 MLS/HR; Start 05/21/18 at 10:30 Famotidine (Pepcid Iv) 20 mg DAILY IV Last administered on 05/21/18at 11:57; Admin Dose 20 MG; Start 05/21/18 at 11:30 GRISELDA DENNIS May 21, 2018 13:32
[2018-05-21] MEDS: AMIODARONE 200 MG TAB PO SCH ×2 (15:25→20:35)
--- NOTE | 2018-05-21 16:50 | CONS ---
Assessment/Plan Assessment/Plan Hospital Course (Demo Recall) Septic as well as hemorrhagic shock Hypotension, off IV pressor and improving Acute respiratory failure status post intubation Acute blood loss anemia Septic shock and hemorrhagic shock Parox Atrial fibrillation History of respiratory failure status post decannulation Preserved ejection fraction echocardiogram 05/10/2018 Paroxysmal atrial fibrillation, currently sinus rhythm Acute kidney injury -Patient remains in sinus rhythm currently, switch amiodarone to p.o. -BP overall improved, will start carvedilol -Vent management as per pulmonary -Fluid management and electrolytes as per renal -Antibiotics as per infectious disease Consultation Date/Type/Reason Admit Date/Time May 06, 2018 at 17:38 Initial Consult Date 05/10/18 Type of Consult Cardiology Requesting Provider: ROLAND GIRON MD Date/Time of Note DATE: 05/21/18 TIME: 16:48 24 HR Interval Summary Free Text/Dictation Patient seen and examined Exam/Review of Systems Vital Signs Vitals Vital Signs Date Temp Pulse Resp B/P (MAP) Pulse Ox O2 O2 Flow FiO2 Time Delivery Rate 05/21/18 106 16:00 05/21/18 99.1 25 135/70 99 Mechanical 16:00 (91) Ventilator 05/21/18 30 15:08 Intake and Output 05/20/18 05/20/18 05/21/18 1515:00 23:00 07:00 IntakeIntake Total 1105.195 ml 711.44 ml 761.44 ml OutputOutput Total 605 ml 3195 ml 900 ml BalanceBalance 500.195 ml -2483.56 ml -138.56 ml Exam Exam Sleeping but arousable, looks at me when her name is called, no apparent distress Head: normocephalic ENMT: intubated Respiratory: other (Coarse breath sounds bilaterally, no wheezing) Cardiovascular: regular rate and rhythm (S1-S2 heard) Gastrointestinal: soft, non-tender, bowel sounds Extremities: edema Labs Result Diagram: 05/21/18 0426 05/21/18 1438 Results 24hrs Laboratory Tests Test 05/21/18 04:26 05/21/18 14:38 White Blood Count 9.9 Red Blood Count 2.52 L Hemoglobin 8.1 L Hematocrit 27.1 L Mean Corpuscular Volume 107.5 H Mean Corpuscular Hemoglobin 32.1 Mean Corpuscular Hemoglobin Concent 29.9 L Red Cell Distribution Width 18.1 H Platelet Count 147 Mean Platelet Volume 9.9 Immature Granulocytes % 0.800 H Neutrophils % 78.4 H Lymphocytes % 10.3 L Monocytes % 7.8 Eosinophils % 2.3 Basophils % 0.4 Nucleated Red Blood Cells % 0.0 Immature Granulocytes # 0.080 H Neutrophils # 7.8 H Lymphocytes # 1.0 Monocytes # 0.8 Eosinophils # 0.2 Basophils # 0.0 Nucleated Red Blood Cells # 0.0 Sodium Level 145 H 146 H Potassium Level 3.3 L 3.6 Chloride Level 106 106 Carbon Dioxide Level 28 29 Anion Gap 11 11 Blood Urea Nitrogen 60 H 58 H Creatinine 1.65 H 1.71 H Est Glomerular Filtrat Rate mL/min Glucose Level 90 113 Calcium Level 8.6 8.6 Phosphorus Level 4.2 Magnesium Level 2.1 Medications Medications Current Medications IV Flush (NS 10 ml) 10 ml PRN IV ; Start 05/06/18 at 20:30 Ascorbic Acid (Vitamin C) 500 mg DAILY GTB Last administered on 05/21/18 08:33; Admin Dose 500 MG; Start 05/07/18 at 09:00 Albuterol/ Ipratropium (Duoneb) 3 ml Q2H RESP THERAPY PRN HHN SHORTNESS OF BREATH; Start 05/06/18 at 23:30 Zinc Sulfate (Zinc Sulfate) 220 mg DAILY GTB Last administered on 05/21/18 08:27; Admin Dose 220 MG; Start 05/07/18 at 09:00 Ondansetron HCl (Zofran Tab) 4 mg Q6H PRN GTB NAUSEA AND/OR VOMITING; Start 05/07/18 at 00:15 Multivitamins (Multivitamin) 30 ml DAILY GTB Last administered on 05/21/18at 0 8:33; Admin Dose 30 ML; Start 05/07/18 at 09:00 Norepinephrine 250 ml @ 1.875 mls/ hr TITRATE IV Last administered on 05/08/18at 13:33; Admin Dose 33.75 MLS/HR; Start 05/08/18 at 03:00 Citric Acid/ Sodium Citrate (Bicitra) 30 ml Q8 PO Last administered on 05/21/18 15:24; Admin Dose 30 ML; Start 05/09/18 at 08:00 Phenylephrine HCl 80 mg/Dextrose 250 ml @ 18.75 mls/ hr TITRATE IV Last administered on 05/15/18 01:50; Admin Dose 5.63 MLS/HR; Start 05/09/18 at 12:30 Miscellaneous Information (Pending Santyl Order For Wound Care) This patient goldman... PRN PRN XX WOUND CARE; Start 05/09/18 at 17:00 Vancomycin HCl (Vancomycin Oral Syringe) 250 mg Q6 PO Last administered on 05/21/18 13:09; Admin Dose 250 MG; Start 05/12/18 at 00:00 Metronidazole 100 ml @ 100 mls/hr Q8 IVPB Last administered on 05/21/18 15:24; Admin Dose 100 MLS/HR; Start 05/11/18 at 20:00 Collagenase (Santyl) 1 applic DAILY TOP Last administered on 05/21/18 08:33; Admin Dose 1 APPLIC; Start 05/13/18 at 09:00 Propofol 100 ml @ 2.64 mls/hr Q12H IV Last administered on 05/21/18 07:19; Admin Dose 18.48 MLS/HR; Start 05/12/18 at 18:30 Albuterol (Ventolin Hfa) 4 puff Q6H RESP THERAPY INH Last administered on 05/21/18 13:59; Admin Dose 4 PUFF; Start 05/12/18 at 20:00 Ipratropium [place] (Atrovent Hfa) 4 puff Q6H RESP THERAPY INH Last administered on 05/21/18 13:59; Admin Dose 4 PUFF; Start 05/12/18 at 20:00 Cholestyramine Resin (Questran Light) 4 gm BID PO Last administered on 05/21/18 08:33; Admin Dose 4 GM; Start 05/14/18 at 21:00 Heparin Sodium (Porcine) (Heparin (1000 Units/ml)) 2,800 unit AFTER DIALYSIS CATHETER Last administered on 05/20/18 18:08; Admin Dose 2,800 UNIT; Start 05/16/18 at 16:30 Furosemide (Lasix) 40 mg BID DIURETICS IV Last administered on 05/21/18 06:02; Admin Dose 40 MG; Start 05/19/18 at 09:00 Morphine Sulfate (morphine) 2 mg Q4H PRN IV SEVERE PAIN LEVEL 7-10 Last administered on 05/20/18 04:17; Admin Dose 2 MG; Start 05/19/18 at 11:00 Epoetin Zen-epbx (RETACRIT(esrd)) 20,000 unit Tu@1700 SC Last administered on 05/19/18 18:23; Admin Dose 20,000 UNIT; Start 05/19/18 at 17:00 Spironolactone (Aldactone) 50 mg DAILY GTB Last administered on 05/21/18 08:33; Admin Dose 50 MG; Start 05/21/18 at 09:00 Midazolam HCl 50 ml @ 1 mls/hr TITRATE IV Last administered on 05/21/18 11:57; Admin Dose 1 MLS/HR; Start 05/21/18 at 10:30 Famotidine (Pepcid Iv) 20 mg DAILY IV Last administered on 05/21/18 11:57; Admin Dose 20 MG; Start 05/21/18 at 11:30 Amiodarone HCl (Cordarone) 200 mg TID PO Last administered on 05/21/18at 15:25; Admin Dose 200 MG; Start 05/21/18 at 14:30 Evangelista Scanlon DO May 21, 2018 16:50
[2018-05-22] VITALS (34 sets, daily range): BP systolic 81–157; BP diastolic 40–94; PULSE 81–118; RESP 0–29
[2018-05-22] MEDS: IPRATROPIUM (HFA) 12.9 GM INHALER INH SCH ×4 (01:34→19:28)
[2018-05-22] MEDS: ALBUTEROL HFA 8 GM INHALER INH SCH ×4 (01:35→19:28)
[2018-05-22] MEDS: FUROSEMIDE 40 MG INJ IV SCH ×2 (05:18→18:44)
[2018-05-22] MEDS: metroNIDAZOLE 500 MG/NS (PMX) 100 ML IVPB SCH ×3 (05:18→21:55)
[2018-05-22] MEDS: CITRIC ACID/NA CITRATE 30 ML CUP PO SCH ×3 (05:18→21:55)
[2018-05-22] MEDS: VANCOMYCIN HCL 250 MG/5ML POSYG PO SCH ×4 (05:18→23:22)
[2018-05-22] MEDS ORDERED: POTASSIUM CHLORIDE 20 MEQ POWDER FOR ORAL SOLN GTB ONE (08:00)
--- NOTE | 2018-05-22 08:03 | PN ---
DATE: 05/22/2018 SUBJECTIVE: The patient remains in serious but stable condition. The patient's urinary output has b een improving. No other acute events noted. No hemoptysis, hematemesis, hematochezia. OBJECTIVE: VITAL SIGNS: Blood pressure is 113/66, respiration 26, pulse 111, temperature 99.4. HEENT: Head is normocephalic. NECK: Supple. HEART: Regular rate. LUNGS: Show diminished breath sounds at the base. ABDOMEN: Soft, nontender to palpation without rebound or guarding. EXTREMITIES: Negative for clubbing, cyanosis. Positive edema, diffuse anasarca. DERMATOLOGIC: No rashes. MUSCULOSKELETAL: No joint effusion. NEUROLOGIC: No change in exam. MEDICATIONS: The patient's medications have been reviewed. LABORATORY DATA: Shows sodium 146, potassium 3.4 BUN 59, creatinine 1.88. CBC was reviewed. IMAGING STUDIES: Reviewed. ASSESSMENT AND PLAN: 1. Nonoliguric acute kidney injury on top of chronic kidney disease with previous baseline creatinin e around 2 to 2.5 mg/dL. Etiology of NATHAN is secondary to acute tubular necrosis due to shock, sepsis . The patient was initiated on hemodialysis for solute clearance volume removal. The patient has sh own signs of renal recovery. Continue to hold hemodialysis. Continue to monitor renal function clos [place]. Otherwise, continue current treatment plan, supportive care, renally dose all meds. 2. Volume overload secondary to acute kidney injury, chronic kidney disease, decompensated heart cem lure. The patient has grossly anasarca. Continue aggressive diuretic therapy, continue Lasix. 3. Metolazone, monitor electrolytes, renal function closely. 4. Hypokalemia and hypomagnesemia. Continue to monitor and replete. 5. Anemia. Monitor hemoglobin and hematocrit levels. 6. Mineral bone disorder. Monitor calcium and phosphorus levels. 7. Hypernatremia. Will increase free water flushes to 300 mL q.4 hours. Continue to monitor serial sodium levels. 8. Ventilator dependent respiratory failure. Vent settings and ABG was reviewed. Continue to monit or. Follow up with pulmonary. 9. Sepsis, status post shock secondary to urinary tract infection and pneumonia. Patient is complet ing antibiotic course. 10. Tachyarrhythmia. Continue current medical management. Follow up with cardiology. 11. Dysphagia, status post G-tube feeding. 12. Acute encephalopathy, etiology toxic metabolic. Continue to monitor. 13. Lower extremity wounds. Continue wound care. Please note I spent over 30 minutes of critical care time with this patient. Dictated By: JEANA BANSAL DO NR/NTS Conf#: [id number] DID#: [id number] CC: QUINTEN UMAÑA MD; ROLAND GIRON MD;*EndCC*
[2018-05-22] MEDS: MULTIVITAMINS 30 ML CUP GTB SCH (08:13)
[2018-05-22] MEDS: SPIRONOLACTONE 25 MG TAB GTB SCH (08:14)
[2018-05-22] MEDS: ASCORBIC ACID 500 MG TAB GTB SCH (08:14)
[2018-05-22] MEDS: ZINC SULFATE 220 MG CAP GTB SCH (08:14)
[2018-05-22] MEDS: CHOLESTYRAMINE (LIGHT) 4 GM PACKET PO SCH ×2 (08:14→20:17)
[2018-05-22] MEDS: AMIODARONE 200 MG TAB PO SCH ×3 (08:15→20:17)
--- NOTE | 2018-05-22 11:09 | PN ---
Date/Time of Note Date/Time of Note DATE: 05/22/18 TIME: 11:00 Assessment/Plan VTE Prophylaxis Risk score (from [place])>0 risk: 8 SCD applied (from [place]): No SCD contraindicated: other Pharmacological prophylaxis: other Pharm contraindication: other Lines/Catheters [facility]from [facility]): KASANDRA Central line still needed: Yes Urinary Cath still in place: Yes Reason Cath still needed: urinary retention Assessment/Plan Assessment/Plan - Hypokalemia- replce K; am BMP -Atrial fibrillation was rapid ventricular response, s/p amiodarone drip. -Septic shock secondary to urinary tract infection, anterior neck soft tissue infection, and C. difficile colitis, resolving. Continue antibiotics per ID. Dr. Black is following in infection disease consultation. -Acute respiratory failure requiring intubation and ventilatory support. Dr. Lambert is following in pulmonology consultation. -Acute kidney injury on chronic kidney disease. Started on HD this admission. Dr. Mckeon is following in nephrology consultation. -Anemia of chronic inflammation, stool for OB is negative, status post blood transfusion. Continue Epogen. -Metabolic acidosis, resolved. -Acute diastolic congestive heart failure. Dr. Scanlon is following in cardiology consultation. -Paroxysmal atrial fibrillation -COPD -Dysphagia with PEG. -G-tube mild malfunction, changed by GI Dr. Carolina is following in gastroenterology consultation. -Obesity Critical care time spent is 30 minutes. Further recommendations based on clinical course. Plan of care discussed with Dr. Eisenberg. Result Diagram: 05/22/18 0411 05/22/18 0411 Results 24hrs Laboratory Tests Test 05/21/18 14:38 05/22/18 04:11 Sodium Level 146 H 146 H Potassium Level 3.6 3.4 L Chloride Level 106 109 Carbon Dioxide Level 29 29 Anion Gap 11 8 Blood Urea Nitrogen 58 H 59 H Creatinine 1.71 H 1.88 H Est Glomerular Filtrat Rate mL/min Glucose Level 113 97 Calcium Level 8.6 8.6 White Blood Count 10.1 Red Blood Count 2.37 L Hemoglobin 7.6 L Hematocrit 26.1 L Mean Corpuscular Volume 110.1 H Mean Corpuscular Hemoglobin 32.1 Mean Corpuscular Hemoglobin Concent 29.1 L Red Cell Distribution Width 18.0 H Platelet Count 160 Mean Platelet Volume 10.5 H Immature Granulocytes % 0.600 H Neutrophils % 79.1 H Lymphocytes % 9.8 L Monocytes % 8.1 Eosinophils % 2.0 Basophils % 0.4 Nucleated Red Blood Cells % 0.0 Immature Granulocytes # 0.060 H Neutrophils # 8.0 H Lymphocytes # 1.0 Monocytes # 0.8 Eosinophils # 0.2 Basophils # 0.0 Nucleated Red Blood Cells # 0.0 Phosphorus Level 4.5 Magnesium Level 1.9 Subjective 24 Hr Interval Summary Subjective hx not possible: pt non-verbal Constitutional: requiring IVF, requiring O2 Exam/Review of Systems Exam Vitals Vital Signs Date Temp Pulse Resp B/P (MAP) Pulse Ox O2 O2 Flow FiO2 Time Delivery Rate 05/22/18 103 26 97 09:32 05/22/18 30 07:20 05/22/18 113/66 Mechanical 06:00 (82) Ventilator 05/22/18 99.4 04:00 Intake and Output 05/21/18 05/21/18 05/22/18 1515:00 23:00 07:00 IntakeIntake Total 832.937 ml 996 ml 759 ml OutputOutput Total 990 ml 830 ml 614 ml BalanceBalance -157.063 ml 166 ml 145 ml Constitutional: non-verbal, frail Psych: nl mood/affect Eyes: nl lids, nl sclera ENMT: nl external ears & nose Respiratory: diminished breath sounds Cardiovascular: nl pulses, other Gastrointestinal: soft, non-tender, other Musculoskeletal: muscle weakness, range of motion Extremities: edema Neurological: lethargic Results Results 24hrs Laboratory Tests Test 05/21/18 14:38 05/22/18 04:11 Sodium Level 146 H 146 H Potassium Level 3.6 3.4 L Chloride Level 106 109 Carbon Dioxide Level 29 29 Anion Gap 11 8 Blood Urea Nitrogen 58 H 59 H Creatinine 1.71 H 1.88 H Est Glomerular Filtrat Rate mL/min Glucose Level 113 97 Calcium Level 8.6 8.6 White Blood Count 10.1 Red Blood Count 2.37 L Hemoglobin 7.6 L Hematocrit 26.1 L Mean Corpuscular Volume 110.1 H Mean Corpuscular Hemoglobin 32.1 Mean Corpuscular Hemoglobin Concent 29.1 L Red Cell Distribution Width 18.0 H Platelet Count 160 Mean Platelet Volume 10.5 H Immature Granulocytes % 0.600 H Neutrophils % 79.1 H Lymphocytes % 9.8 L Monocytes % 8.1 Eosinophils % 2.0 Basophils % 0.4 Nucleated Red Blood Cells % 0.0 Immature Granulocytes # 0.060 H Neutrophils # 8.0 H Lymphocytes # 1.0 Monocytes # 0.8 Eosinophils # 0.2 Basophils # 0.0 Nucleated Red Blood Cells # 0.0 Phosphorus Level 4.5 Magnesium Level 1.9 Medications Medication Current Medications IV Flush (NS 10 ml) 10 ml PRN IV ; Start 05/06/18 at 20:30 Ascorbic Acid (Vitamin C) 500 mg DAILY GTB Last administered on 05/22/18 08:14; Admin Dose 500 MG; Start 05/07/18 at 09:00 Albuterol/ Ipratropium (Duoneb) 3 ml Q2H RESP THERAPY PRN HHN SHORTNESS OF BREATH; Start 05/06/18 at 23:30 Zinc Sulfate (Zinc Sulfate) 220 mg DAILY GTB Last administered on 05/22/18at 08:14; Admin Dose 220 MG; Start 05/07/18 at 09:00 Ondansetron HCl (Zofran Tab) 4 mg Q6H PRN GTB NAUSEA AND/OR VOMITING; Start 05/07/18 at 00:15 Multivitamins (Multivitamin) 30 ml DAILY GTB Last administered on 05/22/18at 08:13; Admin Dose 30 ML; Start 05/07/18 at 09:00 Norepinephrine 250 ml @ 1.875 mls/ hr TITRATE IV Last administered on 05/08/18at 13:33; Admin Dose 33.75 MLS/HR; Start 05/08/18 at 03:00 Citric Acid/ Sodium Citrate (Bicitra) 30 ml Q8 PO Last administered on 05/22/18at 05:18; Admin Dose 30 ML; Start 05/09/18 at 08:00 Phenylephrine HCl 80 mg/Dextrose 250 ml @ 18.75 mls/ hr TITRATE IV Last administered on 05/15/18at 01:50; Admin Dose 5.63 MLS/HR; Start 05/09/18 at 12:30 Miscellaneous Information (Pending Santyl Order For Wound Care) This patient goldman... PRN PRN XX WOUND CARE; Start 05/09/18 at 17:00 Vancomycin HCl (Vancomycin Oral Syringe) 250 mg Q6 PO Last administered on 05/22/18 05:18; Admin Dose 250 MG; Start 05/12/18 at 00:00 Metronidazole 100 ml @ 100 mls/hr Q8 IVPB Last administered on 05/22/18 05:18; Admin Dose 100 MLS/HR; Start 05/11/18 at 20:00 Collagenase (Santyl) 1 applic DAILY TOP Last administered on 05/21/18 08:33; Admin Dose 1 APPLIC; Start 05/13/18 at 09:00 Propofol 100 ml @ 2.64 mls/hr Q12H IV Last administered on 05/21/18 07:19; Admin Dose 18.48 MLS/HR; Start 05/12/18 at 18:30 Albuterol (Ventolin Hfa) 4 puff Q6H RESP THERAPY INH Last administered on 05/22/18 08:36; Admin Dose 4 PUFF; Start 05/12/18 at 20:00 Ipratropium [place] (Atrovent Hfa) 4 puff Q6H RESP THERAPY INH Last administered on 05/22/18 08:36; Admin Dose 4 PUFF; Start 05/12/18 at 20:00 Cholestyramine Resin (Questran Light) 4 gm BID PO Last administered on 05/22/18 08:14; Admin Dose 4 GM; Start 05/14/18 at 21:00 Heparin Sodium (Porcine) (Heparin (1000 Units/ml)) 2,800 unit AFTER DIALYSIS CATHETER Last administered on 05/20/18 18:08; Admin Dose 2,800 UNIT; Start 05/16/18 at 16:30 Furosemide (Lasix) 40 mg BID DIURETICS IV Last administered on 05/22/18 05:18; Admin Dose 40 MG; Start 05/19/18 at 09:00 Morphine Sulfate (morphine) 2 mg Q4H PRN IV SEVERE PAIN LEVEL 7-10 Last administered on 05/20/18 04:17; Admin Dose 2 MG; Start 05/19/18 at 11:00 Epoetin Zen-epbx (RETACRIT(esrd)) 20,000 unit Tu@1700 SC Last administered on 05/19/18 18:23; Admin Dose 20,000 UNIT; Start 05/19/18 at 17:00 Spironolactone (Aldactone) 50 mg DAILY GTB Last administered on 05/22/18 08:14; Admin Dose 50 MG; Start 05/21/18 at 09:00 Midazolam HCl 50 ml @ 1 mls/hr TITRATE IV Last administered on 05/21/18at 23:44; Admin Dose 2 MLS/HR; Start 05/21/18 at 10:30 Famotidine (Pepcid Iv) 20 mg DAILY IV Last administered on 05/21/18 11:57; Admin Dose 20 MG; Start 05/21/18 at 11:30 Amiodarone HCl (Cordarone) 200 mg TID PO Last administered on 05/22/18 08:15; Admin Dose 200 MG; Start 05/21/18 at 14:30 Carvedilol (Coreg) 6.25 mg BID GTB Last administered on 05/22/18 08:14; Admin Dose 6.25 MG; Start 05/21/18 at 21:00 Metolazone (Zaroxolyn) 5 mg DAILY@0600 PO ; Start 05/22/18 at 09:00 KERON MORAN May 22, 2018 11:09
--- NOTE | 2018-05-22 12:04 | CONS ---
Assessment/Plan Assessment/Plan Hospital Course (Demo Recall) Septic as well as hemorrhagic shock Hypotension, off IV pressor and improving Acute respiratory failure status post intubation Acute blood loss anemia Septic shock and hemorrhagic shock Parox Atrial fibrillation History of respiratory failure status post decannulation Preserved ejection fraction echocardiogram 05/10/2018 Paroxysmal atrial fibrillation, currently sinus rhythm Acute kidney injury -Patient with paroxysmal atrial fibrillation, continue p.o. amiodarone, uptitrate beta-tin -BP overall improved, continue beta-tin -Vent management as per pulmonary -Fluid management and electrolytes as per renal -Antibiotics as per infectious disease Consultation Date/Type/Reason Admit Date/Time May 06, 2018 at 17:38 Initial Consult Date 05/10/18 Type of Consult Cardiology Requesting Provider: ROLAND GIRON MD Date/Time of Note DATE: 05/22/18 TIME: 12:02 24 HR Interval Summary Free Text/Dictation Patient seen and examined Exam/Review of Systems Vital Signs Vitals Vital Signs Date Temp Pulse Resp B/P (MAP) Pulse Ox O2 O2 Flow FiO2 Time Delivery Rate 05/22/18 111 0 127/70 Mechanical 11:00 (89) Ventilator 05/22/18 97 09:32 05/22/18 99.6 08:00 05/22/18 30 08:00 Intake and Output 05/21/18 05/21/18 05/22/18 1515:00 23:00 07:00 IntakeIntake Total 832.937 ml 996 ml 759 ml OutputOutput Total 990 ml 830 ml 614 ml BalanceBalance -157.063 ml 166 ml 145 ml Exam Exam No apparent distress, no response to verbal stimuli Head: normocephalic ENMT: intubated Respiratory: other (Coarse breath sounds bilaterally, no wheezing) Cardiovascular: regular rate and rhythm, other (S1-S2 heard) Gastrointestinal: soft, non-tender, bowel sounds Extremities: edema Labs Result Diagram: 05/22/18 0411 05/22/18 0411 Results 24hrs Laboratory Tests Test 05/21/18 14:38 05/22/18 04:11 Sodium Level 146 H 146 H Potassium Level 3.6 3.4 L Chloride Level 106 109 Carbon Dioxide Level 29 29 Anion Gap 11 8 Blood Urea Nitrogen 58 H 59 H Creatinine 1.71 H 1.88 H Est Glomerular Filtrat Rate mL/min Glucose Level 113 97 Calcium Level 8.6 8.6 White Blood Count 10.1 Red Blood Count 2.37 L Hemoglobin 7.6 L Hematocrit 26.1 L Mean Corpuscular Volume 110.1 H Mean Corpuscular Hemoglobin 32.1 Mean Corpuscular Hemoglobin Concent 29.1 L Red Cell Distribution Width 18.0 H Platelet Count 160 Mean Platelet Volume 10.5 H Immature Granulocytes % 0.600 H Neutrophils % 79.1 H Lymphocytes % 9.8 L Monocytes % 8.1 Eosinophils % 2.0 Basophils % 0.4 Nucleated Red Blood Cells % 0.0 Immature Granulocytes # 0.060 H Neutrophils # 8.0 H Lymphocytes # 1.0 Monocytes # 0.8 Eosinophils # 0.2 Basophils # 0.0 Nucleated Red Blood Cells # 0.0 Phosphorus Level 4.5 Magnesium Level 1.9 Medications Medications Current Medications IV Flush (NS 10 ml) 10 ml PRN IV ; Start 05/06/18 at 20:30 Ascorbic Acid (Vitamin C) 500 mg DAILY GTB Last administered on 05/22/18 08:14; Admin Dose 500 MG; Start 05/07/18 at 09:00 Albuterol/ Ipratropium (Duoneb) 3 ml Q2H RESP THERAPY PRN HHN SHORTNESS OF BREATH; Start 05/06/18 at 23:30 Zinc Sulfate (Zinc Sulfate) 220 mg DAILY GTB Last administered on 05/22/18 08:14; Admin Dose 220 MG; Start 05/07/18 at 09:00 Ondansetron HCl (Zofran Tab) 4 mg Q6H PRN GTB NAUSEA AND/OR VOMITING; Start 05/07/18 at 00:15 Multivitamins (Multivitamin) 30 ml DAILY GTB Last administered on 05/22/18 08:13; Admin Dose 30 ML; Start 05/07/18 at 09:00 Norepinephrine 250 ml @ 1.875 mls/ hr TITRATE IV Last administered on 05/08/18at 13:33; Admin Dose 33.75 MLS/HR; Start 05/08/18 at 03:00 Citric Acid/ Sodium Citrate (Bicitra) 30 ml Q8 PO Last administered on 05/22/18 05:18; Admin Dose 30 ML; Start 05/09/18 at 08:00 Phenylephrine HCl 80 mg/Dextrose 250 ml @ 18.75 mls/ hr TITRATE IV Last a dministered on 05/15/18 01:50; Admin Dose 5.63 MLS/HR; Start 05/09/18 at 12:30 Miscellaneous Information (Pending Santyl Order For Wound Care) This patient goldman... PRN PRN XX WOUND CARE; Start 05/09/18 at 17:00 Vancomycin HCl (Vancomycin Oral Syringe) 250 mg Q6 PO Last administered on 05/22/18 05:18; Admin Dose 250 MG; Start 05/12/18 at 00:00 Metronidazole 100 ml @ 100 mls/hr Q8 IVPB Last administered on 05/22/18 05:18; Admin Dose 100 MLS/HR; Start 05/11/18 at 20:00 Collagenase (Santyl) 1 applic DAILY TOP Last administered on 05/21/18 08:33; Admin Dose 1 APPLIC; Start 05/13/18 at 09:00 Propofol 100 ml @ 2.64 mls/hr Q12H IV Last administered on 05/21/18 07:19; Admin Dose 18.48 MLS/HR; Start 05/12/18 at 18:30 Albuterol (Ventolin Hfa) 4 puff Q6H RESP THERAPY INH Last administered on 08:36; Admin Dose 4 PUFF; Start 05/12/18 at 20:00 Ipratropium [place] (Atrovent Hfa) 4 puff Q6H RESP THERAPY INH Last administered on 05/22/18 08:36; Admin Dose 4 PUFF; Start 05/12/18 at 20:00 Cholestyramine Resin (Questran Light) 4 gm BID PO Last administered on 05/22/18 08:14; Admin Dose 4 GM; Start 05/14/18 at 21:00 Heparin Sodium (Porcine) (Heparin (1000 Units/ml)) 2,800 unit AFTER DIALYSIS CATHETER Last administered on 05/20/18 18:08; Admin Dose 2,800 UNIT; Start 05/16/18 at 16:30 Furosemide (Lasix) 40 mg BID DIURETICS IV Last administered on 05/22/18 05:18; Admin Dose 40 MG; Start 05/19/18 at 09:00 Morphine Sulfate (morphine) 2 mg Q4H PRN IV SEVERE PAIN LEVEL 7-10 Last a dministered on 05/20/18 04:17; Admin Dose 2 MG; Start 05/19/18 at 11:00 Epoetin Zen-epbx (RETACRIT(esrd)) 20,000 unit Tu@1700 SC Last administered on 05/19/18 18:23; Admin Dose 20,000 UNIT; Start 05/19/18 at 17:00 Spironolactone (Aldactone) 50 mg DAILY GTB Last administered on 05/22/18 08:14; Admin Dose 50 MG; Start 05/21/18 at 09:00 Midazolam HCl 50 ml @ 1 mls/hr TITRATE IV Last administered on 05/21/18 23:44; Admin Dose 2 MLS/HR; Start 05/21/18 at 10:30 Famotidine (Pepcid Iv) 20 mg DAILY IV Last administered on 05/21/18 11:57; Admin Dose 20 MG; Start 05/21/18 at 11:30 Amiodarone HCl (Cordarone) 200 mg TID PO Last administered on 05/22/18 08:15; Admin Dose 200 MG; Start 05/21/18 at 14:30 Carvedilol (Coreg) 6.25 mg BID GTB Last administered on 05/22/18 08:14; Admin Dose 6.25 MG; Start 05/21/18 at 21:00 Metolazone (Zaroxolyn) 5 mg DAILY@0600 PO ; Start 05/22/18 at 09:00 Evangelista Scanlon DO May 22, 2018 12:04
[2018-05-22] MEDS: BALSAM PERU/CASTOR OIL 60 GM TUBE TOP SCH ×2 (12:09→20:17)
[2018-05-22] MEDS: FAMOTIDINE 20 MG INJ IV SCH (12:10)
[2018-05-22] MEDS: COLLAGENASE 5 GM (UD JAR) TOP SCH (12:10)
[2018-05-22] MEDS ORDERED: MAGNESIUM SULFATE 1 GM/D5W 100 ML IVPB ONE (12:30)
[2018-05-22] MEDS: METOLAZONE 5 MG TAB PO SCH (13:23)
[2018-05-22] MEDS: METOPROLOL 50 MG TAB GTB SCH ×2 (13:24→21:56)
--- NOTE | 2018-05-22 13:26 | CONS ---
Consult Date/Type/Reason Admit Date/Time May 06, 2018 at 17:38 Initial Consult Date 05/10/18 Type of Consult Pulmonary Requesting Provider: ROLAND GIRON MD Date/Time of Note DATE: 05/22/18 TIME: 13:26 Subjective Failed several weaning trials. Primary to discuss with next of kin goals of care including tracheostomy. Objective Vital Signs Date Temp Pulse Resp B/P (MAP) Pulse Ox O2 O2 Flow FiO2 Time Delivery Rate 05/22/18 103 12:00 05/22/18 0 127/70 Mechanical 11:00 (89) Ventilator 05/22/18 97 09:32 05/22/18 99.6 08:00 05/22/18 30 08:00 Intake and Output 05/21/18 05/21/18 05/22/18 1414:59 22:59 06:59 IntakeIntake Total 1016.117 ml 996 ml 796 ml OutputOutput Total 990 ml 814 ml 730 ml BalanceBalance 26.117 ml 182 ml 66 ml Exam GENERAL: Elderly appearing lady on mechanical ventilation orally intubated VITAL SIGNS: per chart NECK: Supple. No JVD or lymphadenopathy. CARDIAC EXAM: S1, S2. No added sounds or murmurs. CHEST: Diminished air entry bilaterally, bilateral rales ABDOMEN: Soft, nontender. No guarding or rebound. EXTREMITIES: No cyanosis, clubbing edema +2 NEUROLOGIC: Generalized weakness. Vent Setting Ventilator Support Mode: AC Fraction of Inspired Oxygen pe: 30 Positive End Expiratory Pressu: 5.0 Results/Medications Result Diagram: 05/22/18 0411 05/22/18 0411 Results 24 hrs Laboratory Tests Test 05/21/18 14:38 05/22/18 04:11 Sodium Level 146 H 146 H Potassium Level 3.6 3.4 L Chloride Level 106 109 Carbon Dioxide Level 29 29 Anion Gap 11 8 Blood Urea Nitrogen 58 H 59 H Creatinine 1.71 H 1.88 H Est Glomerular Filtrat Rate mL/min Glucose Level 113 97 Calcium Level 8.6 8.6 White Blood Count 10.1 Red Blood Count 2.37 L Hemoglobin 7.6 L Hematocrit 26.1 L Mean Corpuscular Volume 110.1 H Mean Corpuscular Hemoglobin 32.1 Mean Corpuscular Hemoglobin Concent 29.1 L Red Cell Distribution Width 18.0 H Platelet Count 160 Mean Platelet Volume 10.5 H Immature Granulocytes % 0.600 H Neutrophils % 79.1 H Lymphocytes % 9.8 L Monocytes % 8.1 Eosinophils % 2.0 Basophils % 0.4 Nucleated Red Blood Cells % 0.0 Immature Granulocytes # 0.060 H Neutrophils # 8.0 H Lymphocytes # 1.0 Monocytes # 0.8 Eosinophils # 0.2 Basophils # 0.0 Nucleated Red Blood Cells # 0.0 Phosphorus Level 4.5 Magnesium Level 1.9 Medications Current Medications IV Flush (NS 10 ml) 10 ml PRN IV ; Start 05/06/18 at 20:30 Ascorbic Acid (Vitamin C) 500 mg DAILY GTB Last administered on 05/22/18 08:14; Admin Dose 500 MG; Start 05/07/18 at 09:00 Albuterol/ Ipratropium (Duoneb) 3 ml Q2H RESP THERAPY PRN HHN SHORTNESS OF BREATH; Start 05/06/18 at 23:30 Zinc Sulfate (Zinc Sulfate) 220 mg DAILY GTB Last administered on 05/22/18 08:14; Admin Dose 220 MG; Start 05/07/18 at 09:00 Ondansetron HCl (Zofran Tab) 4 mg Q6H PRN GTB NAUSEA AND/OR VOMITING; Start 05/07/18 at 00:15 Multivitamins (Multivitamin) 30 ml DAILY GTB Last administered on 05/22/18 08:13; Admin Dose 30 ML; Start 05/07/18 at 09:00 Norepinephrine 250 ml @ 1.875 mls/ hr TITRATE IV Last administered on 05/08/18 13:33; Admin Dose 33.75 MLS/HR; Start 05/08/18 at 03:00 Citric Acid/ Sodium Citrate (Bicitra) 30 ml Q8 PO Last administered on 05/22/18 05:18; Admin Dose 30 ML; Start 05/09/18 at 08:00 Phenylephrine HCl 80 mg/Dextrose 250 ml @ 18.75 mls/ hr TITRATE IV Last administered on 05/15/18 01:50; Admin Dose 5.63 MLS/HR; Start 05/09/18 at 12:30 Miscellaneous Information (Pending [facility] Order For Wound Care) This patient goldman... PRN PRN XX WOUND CARE; Start 05/09/18 at 17:00 Vancomycin HCl (Vancomycin Oral Syringe) 250 mg Q6 PO Last administered on 05/22/18 12:08; Admin Dose 250 MG; Start 05/12/18 at 00:00 Metronidazole 100 ml @ 100 mls/hr Q8 IVPB Last administered on 05/22/18 05:18; Admin Dose 100 MLS/HR; Start 05/11/18 at 20:00 Collagenase (Santyl) 1 applic DAILY TOP Last administered on 05/22/18 12:10; Admin Dose 1 APPLIC; Start 05/13/18 at 09:00 Propofol 100 ml @ 2.64 mls/hr Q12H IV Last administered on 05/21/18 07:19; Admin Dose 18.48 MLS/HR; Start 05/12/18 at 18:30 Albuterol (Ventolin Hfa) 4 puff Q6H RESP THERAPY INH Last administered on 05/22/18 08:36; Admin Dose 4 PUFF; Start 05/12/18 at 20:00 Ipratropium [place] (Atrovent Hfa) 4 puff Q6H RESP THERAPY INH Last administered on 05/22/18 08:36; Admin Dose 4 PUFF; Start 05/12/18 at 20:00 Cholestyramine Resin (Questran Light) 4 gm BID PO Last administered on 05/22/18 08:14; Admin Dose 4 GM; Start 05/14/18 at 21:00 Heparin Sodium (Porcine) (Heparin (1000 Units/ml)) 2,800 unit AFTER DIALYSIS CATHETER Last administered on 05/20/18 18:08; Admin Dose 2,800 UNIT; Start 05/16/18 at 16:30 Furosemide (Lasix) 40 mg BID DIURETICS IV Last administered on 05/22/18 05:18; Admin Dose 40 MG; Start 05/19/18 at 09:00 Morphine Sulfate (morphine) 2 mg Q4H PRN IV SEVERE PAIN LEVEL 7-10 Last administered on 05/20/18 04:17; Admin Dose 2 MG; Start 05/19/18 at 11:00 Epoetin Zen-epbx (RETACRIT(esrd)) 20,000 unit Tu@1700 SC Last administered on 05/19/18 18:23; Admin Dose 20,000 UNIT; Start 05/19/18 at 17:00 Spironolactone (Aldactone) 50 mg DAILY GTB Last administered on 05/22/18 08:14; Admin Dose 50 MG; Start 05/21/18 at 09:00 Midazolam HCl 50 ml @ 1 mls/hr TITRATE IV Last administered on 05/21/18 23:44; Admin Dose 2 MLS/HR; Start 05/21/18 at 10:30 Famotidine (Pepcid Iv) 20 mg DAILY IV Last administered on 05/22/18 12:10; Adm in Dose 20 MG; Start 05/21/18 at 11:30 Amiodarone HCl (Cordarone) 200 mg TID PO Last administered on 05/22/18 12:08; Admin Dose 200 MG; Start 05/21/18 at 14:30 Metolazone (Zaroxolyn) 5 mg DAILY@0600 PO Last administered on 05/22/18 13:23; Admin Dose 5 MG; Start 05/22/18 at 09:00 Metoprolol Tartrate (Lopressor) 50 mg Q8 GTB Last administered on 05/22/18 13:24; Admin Dose 50 MG; Start 05/22/18 at 14:00 Magnesium Sulfate/ Dextrose 100 ml @ 100 mls/hr ONCE ONCE IVPB Last administered on 05/22/18 12:08; Admin Dose 100 MLS/HR; Start 05/22/18 at 12:30; Stop 05/22/18 at 13:29 Assessment/Plan Hospital Course (Demo Recall) IMP: 1. Septic shock likely secondary to recent UTI now C. difficile colitis, possible healthcare associated pneumonia also 2. Acute Renal Failure--likely non-oliguric ATN 3. Resolved metabolic acidosis 4. Encephalopathy--toxic-metabolic 2/2 infection and ARF, in addition to baseline 5. Anemia--r/o acute GIB 6. H/O abdominal abscess 7. Acute hypoxemic respiratory failure secondary to above, continue mechanical ventilation 8. Atrial fibrillation with rapid ventricular rate RECS: 1. Hemodialysis as tolerated 2. Continue mechanical ventilation, failed various weaning trials. Would recommend proceed to tracheostomy if family wish to continue current measures 3. Abx as per ID 4. Continue tube feeding as tolerated 5. Aspiration precautions pulmonary toilet 6. Monitor H&H post transfusion 7. Rate control per cardiology continue amiodarone drip for now. Continue supportive care, Critical care time 40 minutes. Await primary care decision regarding goals of care. LAURA JENKINS MD, [facility] May 22, 2018 13:26
[2018-05-22] MEDS: PROPOFOL 100 ML IV SCH (18:13)
--- NOTE | 2018-05-22 18:25 | CONS ---
Assessment/Plan Assessment/Plan Assessment/Plan (Daily) Assessment/Plan (Daily) Propofol gtt 1. Malfunctioning gastrostomy tube. -resolved 2. Renal failure.- on HD 3. Sepsis. -with mx organisms at trach site wound 4. Chronic obstructive pulmonary disease. 5. Bipolar. 6. Paroxysmal atrial fibrillation. 7. Anemia of chronic disease. No further bleeding noted, hematocrit is stable 8. CHF 9. Elevated alk phos with h/o hepatic venous congestion seen on abd CT in 2018 -resolved 10. Respiratory failure 11. Diarrhea improving with questran 12. UTI with mx organisms 13. H/O deep esophageal ulcer accident 14 mild GI bleeding 15 C. difficile colitis 16. Bilateral pedal edema PLAN: Monitor residuals q 4 hours Continue pepcid and questran and vanco PO Will complete the course of vancomycin and then taper the dose slowly to prevent the recurrence Consultation Date/Type/Reason Admit Date/Time May 06, 2018 at 17:38 Initial Consult Date 05/10/18 Requesting Provider: ROLAND GIRON MD Date/Time of Note DATE: 05/22/18 TIME: 18:23 24 HR Interval Summary Subjective hx not possible: pt non-verbal, pt critical Exam/Review of Systems Exam Vitals Vital Signs Date Temp Pulse Resp B/P (MAP) Pulse Ox O2 O2 Flow FiO2 Time Delivery Rate 05/22/18 96 26 99 30 17:03 05/22/18 133/69 Mechanical 16:00 (90) Ventilator 05/22/18 99.4 13:00 Intake and Output 05/21/18 05/21/18 05/22/18 1515:00 23:00 07:00 IntakeIntake Total 832.937 ml 996 ml 796 ml OutputOutput Total 990 ml 830 ml 694 ml BalanceBalance -157.063 ml 166 ml 102 ml ENMT: nl external ears & nose, nl lips & teeth, nl nasal mucosa & septum Neck: supple Respiratory: normal air movement, other (And is on vent FiO2 30%) Cardiovascular: regular rate and rhythm, edema Extremities: edema, pitting pedal edema Results Result Diagram: 05/22/18 0411 05/22/18 0411 Results 24hrs Laboratory Tests Test 05/22/18 04:11 White Blood Count 10.1 Red Blood Count 2.37 L Hemoglobin 7.6 L Hematocrit 26.1 L Mean Corpuscular Volume 110.1 H Mean Corpuscular Hemoglobin 32.1 Mean Corpuscular Hemoglobin Concent 29.1 L Red Cell Distribution Width 18.0 H Platelet Count 160 Mean Platelet Volume 10.5 H Immature Granulocytes % 0.600 H Neutrophils % 79.1 H Lymphocytes % 9.8 L Monocytes % 8.1 Eosinophils % 2.0 Basophils % 0.4 Nucleated Red Blood Cells % 0.0 Immature Granulocytes # 0.060 H Neutrophils # 8.0 H Lymphocytes # 1.0 Monocytes # 0.8 Eosinophils # 0.2 Basophils # 0.0 Nucleated Red Blood Cells # 0.0 Sodium Level 146 H Potassium Level 3.4 L Chloride Level 109 Carbon Dioxide Level 29 Anion Gap 8 Blood Urea Nitrogen 59 H Creatinine 1.88 H Est Glomerular Filtrat Rate mL/min Glucose Level 97 Calcium Level 8.6 Phosphorus Level 4.5 Magnesium Level 1.9 Medications Medication Current Medications IV Flush (NS 10 ml) 10 ml PRN IV ; Start 05/06/18 at 20:30 Ascorbic Acid (Vitamin C) 500 mg DAILY GTB Last administered on 05/22/18 08:14; Admin Dose 500 MG; Start 05/07/18 at 09:00 Albuterol/ Ipratropium (Duoneb) 3 ml Q2H RESP THERAPY PRN HHN SHORTNESS OF BREATH; Start 05/06/18 at 23:30 Zinc Sulfate (Zinc Sulfate) 220 mg DAILY GTB Last administered on 05/22/18 08:14; Admin Dose 220 MG; Start 05/07/18 at 09:00 Ondansetron HCl (Zofran Tab) 4 mg Q6H PRN GTB NAUSEA AND/OR VOMITING; Start 05/07/18 at 00:15 Multivitamins (Multivitamin) 30 ml DAILY GTB Last administered on 05/22/18 08:13; Admin Dose 30 ML; Start 05/07/18 at 09:00 Norepinephrine 250 ml @ 1.875 mls/ hr TITRATE IV Last administered on 13:33; Admin Dose 33.75 MLS/HR; Start 05/08/18 at 03:00 Citric Acid/ Sodium Citrate (Bicitra) 30 ml Q8 PO Last administered on 05/22/18 16:28; Admin Dose 30 ML; Start 05/09/18 at 08:00 Phenylephrine HCl 80 mg/Dextrose 250 ml @ 18.75 mls/ hr TITRATE IV Last administered on 05/15/18 01:50; Admin Dose 5.63 MLS/HR; Start 05/09/18 at 12:30 Miscellaneous Information (Pending Santyl Order For Wound Care) This patient goldman... PRN PRN XX WOUND CARE; Start 05/09/18 at 17:00 Vancomycin HCl (Vancomycin Oral Syringe) 250 mg Q6 PO Last administered on 05/22/18 12:08; Admin Dose 250 MG; Start 05/12/18 at 00:00 Metronidazole 100 ml @ 100 mls/hr Q8 IVPB Last administered on 05/22/18 16:28; Admin Dose 100 MLS/HR; Start 05/11/18 at 20:00 Collagenase (Santyl) 1 applic DAILY TOP Last administered on 05/22/18 12:10; Admin Dose 1 APPLIC; Start 05/13/18 at 09:00 Propofol 100 ml @ 2.64 mls/hr Q12H IV Last administered on 05/21/18 07:19; Admin Dose 18.48 MLS/HR; Start 05/12/18 at 18:30 Albuterol (Ventolin Hfa) 4 puff Q6H RESP THERAPY INH Last administered on 05/22/18 13:27; Admin Dose 4 PUFF; Start 05/12/18 at 20:00 Ipratropium [place] (Atrovent Hfa) 4 puff Q6H RESP THERAPY INH Last adm inistered on 05/22/18 13:27; Admin Dose 4 PUFF; Start 05/12/18 at 20:00 Cholestyramine Resin (Questran Light) 4 gm BID PO Last administered on 05/22/18 08:14; Admin Dose 4 GM; Start 05/14/18 at 21:00 Heparin Sodium (Porcine) (Heparin (1000 Units/ml)) 2,800 unit AFTER DIALYSIS CATHETER Last administered on 05/20/18 18:08; Admin Dose 2,800 UNIT; Start 05/16/18 at 16:30 Furosemide (Lasix) 40 mg BID DIURETICS IV Last administered on 05/22/18 05:18; Admin Dose 40 MG; Start 05/19/18 at 09:00 Epoetin Zen-epbx (RETACRIT(esrd)) 20,000 unit Tu@1700 SC Last administered on 05/19/18 18:23; Admin Dose 20,000 UNIT; Start 05/19/18 at 17:00 Spironolactone (Aldactone) 50 mg DAILY GTB Last administered on 05/22/18 08:14; Admin Dose 50 MG; Start 05/21/18 at 09:00 Midazolam HCl 50 ml @ 1 mls/hr TITRATE IV Last administered on 05/21/18 23:44; Admin Dose 2 MLS/HR; Start 05/21/18 at 10:30 Amiodarone HCl (Cordarone) 200 mg TID PO Last administered on 05/22/18 12:08; Admin Dose 200 MG; Start 05/21/18 at 14:30 Metolazone (Zaroxolyn) 5 mg DAILY@0600 PO Last administered on 05/22/18 13:23; Admin Dose 5 MG; Start 05/22/18 at 09:00 Metoprolol Tartrate (Lopressor) 50 mg Q8 GTB Last administered on 05/22/18 13:24; Admin Dose 50 MG; Start 05/22/18 at 14:00 Famotidine (Pepcid) 20 mg DAILY PEG ; Start 05/23/18 at 09:00 Morphine Sulfate (morphine) 6 mg Q4H PRN PEG SEVERE PAIN LEVEL 7-10; Start 05/22/18 at 17:00 QUINTEN UMAÑA MD May 22, 2018 18:25
--- NOTE | 2018-05-22 19:15 | CONS ---
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 colonization of the airway by pseudomonas and E SBL+klebsiella - h/o possible, recurrent HCAP due to pseudomonas and ESBL+klebsiella - h/o recurrent HCAP due to MRSA and Enterobacter (culture of tracheal aspirate on 07/16/2017 that was collected at [facility]) . Pt took vancomycin and ceftazidime - h/o acute respiratory distress post-thoracentesis, resolved - h/o thoracentesis on 07/18/2017, transudative (protein <2, LDH 279) - h/o bleeding from the trach site - h/o septic shock due to pneumonia, ARDS, bacteremia, fungemia - h/o ARDS - h/o smoking - COPD - ILD # Cardiac - h/o PAF, improved # GI - C diff colitis, diagnosed on 05/11/2018 - h/o intermittent diarrhea, Pt had multiple negative C. diff tests at [facility] at [facility]SH in the past; none was positive until 05/11/2018 - dysphagia - h/o PEG placement 06/13/2018 - protein calorie malnutrition - h/o coffee ground emesis/UGIB on 12/23/2017 due to deep ulceration of distal esophagus and gastritis on EGD 12/26/2017. No e/o H. pylori - h/o possible appendicitis on CT on 11/22/2017, Pt took ertapenem (11/24/2017- 12/01/2017) - h/o extensive adhesions lower abdominal and pelvis between small bowel to each other and to colon and to abdominal wall, anterior pelvic wall chronic abscess secondary to probably an old perforated diverticulitis, torsion of small bowel around these dense adhesion causing multiple obstructive points - h/o laparoscopic exploration and extensive lysis of adhesions and drainage of anterior pelvic wall abscess 09/16/2017. Cultures were negative, no e/o malign venkat. Pt took pip/tazo (09/16/2017-09/26/2017) - h/o partial obstruction mid jejunum in L anterior central pelvis with suggestion of a 3 cm soft tissue mass on CT 08/28/2017 - h/o internal stomal deep ulcer behind the internal bumper, gastritis and esophagitis, Rodriguez's cannot be ruled out, per EGD with biopsy 07/23/2017 - h/o GIB s/p flex sig showed polyp; stool OB negative on 06/29/17 - h/o stool OB positive status - h/o SBO and ileus due to pain meds - h/o EGD and exchange of PEG on 09/01/2017 - h/o mildly elevated CEA # renal/ - recurrent NATHAN on CKD - started on HD on 05/15/2018, via Kem in R groin - 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 His strain of CRE was sensitive to colistin, Avycaz, and Vabomere but resistant to Zerbaxa (reported on 05/19/2018) - Hyponatremia - Hyperkalemia, now hypokalemia - Metabolic acidosis - adrenal insufficiency - h/o vaginal bleed - h/o colonization of urinary tract by ESBL+klebsiella, VRE - h/o recurrent, symptomatic UTI due to carbapenem-resistant kleb (MDR strain) per urine culture 10/04/17, 10/09/17, 10/21/2017, P took colistin (10/09/2017- 10/15/2017), fosfomycin for carbapenemase-producing klebsiella and VRE on 10/25/2017 and 10/28/2017 - h/o funguria - h/o urinary retention # fungemia, bacteremia - h/o bacteremia due to coag negative Staph, probable contaminant as her WBC level improved initially without antibiotic - 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 improved. Probable manifestation of endocarditis. Pt declined MRI on 08/06/2017 - h/o infection of R toes due to pseudomonas. coagulase negative Staph likely a colonizer. resolved - h/o intertrigo of the groin, resolved with nystatin powder - h/o scabies, locally crusted lesion over L scapula, s/p permethrin cream and pGT ivermectin on 08/11/2017, 08/12/2017, 08/19/2017. Repeat skin scraping on 08/21/2017 was negative for scabies # psych, neuro - acute toxic metabolic encephalopathy - decreased hearing b/l - h/o critical illness polyneuropathy - anxiety/depression, bipolar d/o, seen by Psychiatry in the past - chronic pain syndrome - h/o medical non-compliance: she would refuse her medications, treatment and straight catheterization at times # hematological, vascular - chronic anemia requiring blood transfusion intermittently - Macrocytic anemia - 3.1 cm AAA on imaging - PVD recommendations: - continue pGT vancomycin (05/11/2018-) and IV metronidazole (05/11/2018-) for C diff colitis, plan for 10 days. Pt completed meropenem for HCAP (05/13/2018- 05/19/2018) management d/w Pt's JAYANT Bashir the critical care time I took to care for this Pt today was from 1800 to 1830 Consultation Date/Type/Reason Admit Date/Time May 06, 2018 at 17:38 Initial Consult Date 05/10/18 Type of Consult ID Requesting Provider: ROLAND GIRON MD Date/Time of Note DATE: 05/22/18 TIME: 19:12 24 HR Interval Summary Subjective hx not possible: pt non-verbal, pt critical, pt critical status Exam/Review of Systems Exam Vitals Vital Signs Date Temp Pulse Resp B/P (MAP) Pulse Ox O2 O2 Flow FiO2 Time Delivery Rate 05/22/18 81 22 119/58 Mechanical 18:00 (78) Ventilator 05/22/18 99 30 17:03 05/22/18 99.4 13:00 Intake and Output 05/21/18 05/21/18 05/22/18 1515:00 23:00 07:00 IntakeIntake Total 832.937 ml 996 ml 796 ml OutputOutput Total 990 ml 830 ml 694 ml BalanceBalance -157.063 ml 166 ml 102 ml Constitutional: non-verbal, frail Psych: confusion Head: normocephalic, atraumatic Eyes: nl conjunctiva, nl lids ENMT: nl external ears & nose, nl nasal mucosa & septum, intubated Neck: other (former trach site is dressed) Respiratory: crackles/rales, wheezing Cardiovascular: regular rate and rhythm, nl pulses, edema Gastrointestinal: soft, non-tender, other (GT); No distended, No tender Genitourinary - Female: other (FC) Musculoskeletal: nl extremities to inspection Extremities: edema, pitting pedal edema Neurological: unresponsive Skin: rash or lesions (eschar of toes, wound of RLE) Results Result Diagram: 05/22/1841005/22/181 Results 24hrs Laboratory Tests Test 05/22/18 04:11 White Blood Count 10.1 Red Blood Count 2.37 L Hemoglobin 7.6 L Hematocrit 26.1 L Mean Corpuscular Volume 110.1 H Mean Corpuscular Hemoglobin 32.1 Mean Corpuscular Hemoglobin Concent 29.1 L Red Cell Distribution Width 18.0 H Platelet Count 160 Mean Platelet Volume 10.5 H Immature Granulocytes % 0.600 H Neutrophils % 79.1 H Lymphocytes % 9.8 L Monocytes % 8.1 Eosinophils % 2.0 Basophils % 0.4 Nucleated Red Blood Cells % 0.0 Immature Granulocytes # 0.060 H Neutrophils # 8.0 H Lymphocytes # 1.0 Monocytes # 0.8 Eosinophils # 0.2 Basophils # 0.0 Nucleated Red Blood Cells # 0.0 Sodium Level 146 H Potassium Level 3.4 L Chloride Level 109 Carbon Dioxide Level 29 Anion Gap 8 Blood Urea Nitrogen 59 H Creatinine 1.88 H Est Glomerular Filtrat Rate mL/min Glucose Level 97 Calcium Level 8.6 Phosphorus Level 4.5 Magnesium Level 1.9 Medications Medication Current Medications IV Flush (NS 10 ml) 10 ml PRN IV ; Start 05/06/18 at 20:30 Ascorbic Acid (Vitamin C) 500 mg DAILY GTB Last administered on 05/22/18 08:14; Admin Dose 500 MG; Start 05/07/18 at 09:00 Albuterol/ Ipratropium (Duoneb) 3 ml Q2H RESP THERAPY PRN HHN SHORTNESS OF BREATH; Start 05/06/18 at 23:30 Zinc Sulfate (Zinc Sulfate) 220 mg DAILY GTB Last administered on 05/22/18 0 8:14; Admin Dose 220 MG; Start 05/07/18 at 09:00 Ondansetron HCl (Zofran Tab) 4 mg Q6H PRN GTB NAUSEA AND/OR VOMITING; Start 05/07/18 at 00:15 Multivitamins (Multivitamin) 30 ml DAILY GTB Last administered on 05/22/18 08:13; Admin Dose 30 ML; Start 05/07/18 at 09:00 Norepinephrine 250 ml @ 1.875 mls/ hr TITRATE IV Last administered on 05/08/18 13:33; Admin Dose 33.75 MLS/HR; Start 05/08/18 at 03:00 Citric Acid/ Sodium Citrate (Bicitra) 30 ml Q8 PO Last administered on 05/22/18 16:28; Admin Dose 30 ML; Start 05/09/18 at 08:00 Phenylephrine HCl 80 mg/Dextrose 250 ml @ 18.75 mls/ hr TITRATE IV Last administered on 05/15/18 01:50; Admin Dose 5.63 MLS/HR; Start 05/09/18 at 12:30 Miscellaneous Information (Pending Santyl Order For Wound Care) This patient goldman... PRN PRN XX WOUND CARE; Start 05/09/18 at 17:00 Vancomycin HCl (Vancomycin Oral Syringe) 250 mg Q6 PO Last administered on 18:44; Admin Dose 250 MG; Start 05/12/18 at 00:00 Metronidazole 100 ml @ 100 mls/hr Q8 IVPB Last administered on 05/22/18 16:28; Admin Dose 100 MLS/HR; Start 05/11/18 at 20:00 Collagenase (Santyl) 1 applic DAILY TOP Last administered on 05/22/18 12:10; Admin Dose 1 APPLIC; Start 05/13/18 at 09:00 Propofol 100 ml @ 2.64 mls/hr Q12H IV Last administered on 05/21/18 07:19; Admin Dose 18.48 MLS/HR; Start 05/12/18 at 18:30 Albuterol (Ventolin Hfa) 4 puff Q6H RESP THERAPY INH Last administered on 05/22/18 13:27; Admin Dose 4 PUFF; Start 05/12/18 at 20:00 Ipratropium [place] (Atrovent Hfa) 4 puff Q6H RESP THERAPY INH Last administered on 05/22/18 13:27; Admin Dose 4 PUFF; Start 05/12/18 at 20:00 Cholestyramine Resin (Questran Light) 4 gm BID PO Last administered on 05/22/18 08:14; Admin Dose 4 GM; Start 05/14/18 at 21:00 Heparin Sodium (Porcine) (Heparin (1000 Units/ml)) 2,800 unit AFTER DIALYSIS CATHETER Last administered on 05/20/18 18:08; Admin Dose 2,800 UNIT; Start at 16:30 Furosemide (Lasix) 40 mg BID DIURETICS IV Last administered on 05/22/18 18:44; Admin Dose 40 MG; Start 05/19/18 at 09:00 Epoetin Zen-epbx (RETACRIT(esrd)) 20,000 unit Tu@1700 SC Last administered on 05/19/18 18:23; Admin Dose 20,000 UNIT; Start 05/19/18 at 17:00 Spironolactone (Aldactone) 50 mg DAILY GTB Last administered on 05/22/18 08:14; Admin Dose 50 MG; Start 05/21/18 at 09:00 Midazolam HCl 50 ml @ 1 mls/hr TITRATE IV Last administered on 05/21/18 23:44; Admin Dose 2 MLS/HR; Start 05/21/18 at 10:30 Amiodarone HCl (Cordarone) 200 mg TID PO Last administered on 05/22/18 12:08; Admin Dose 200 MG; Start 05/21/18 at 14:30 Metolazone (Zaroxolyn) 5 mg DAILY@0600 PO Last administered on 05/22/18at 13:23; Admin Dose 5 MG; Start 05/22/18 at 09:00 Metoprolol Tartrate (Lopressor) 50 mg Q8 GTB Last administered on 05/22/18at 13:24; Admin Dose 50 MG; Start 05/22/18 at 14:00 Famotidine (Pepcid) 20 mg DAILY PEG ; Start 05/23/18 at 09:00 Morphine Sulfate (morphine) 6 mg Q4H PRN PEG SEVERE PAIN LEVEL 7-10; Start 05/22/18 at 17:00 CELESTINE MURPHY M.D. May 22, 2018 19:15
[2018-05-23] VITALS (50 sets, daily range): BP systolic 95–154; BP diastolic 47–96; PULSE 73–121; RESP 19–30
[2018-05-23] MEDS: MIDAZOLAM (DRIP) 50 mg/50 mL 50 ML IV SCH (01:32)
[2018-05-23] MEDS: IPRATROPIUM (HFA) 12.9 GM INHALER INH SCH ×3 (01:48→19:21)
[2018-05-23] MEDS: ALBUTEROL HFA 8 GM INHALER INH SCH ×3 (01:48→19:21)
[2018-05-23] MEDS: FUROSEMIDE 40 MG INJ IV SCH ×2 (05:11→17:19)
[2018-05-23] MEDS: CITRIC ACID/NA CITRATE 30 ML CUP PO SCH ×3 (05:11→22:47)
[2018-05-23] MEDS: VANCOMYCIN HCL 250 MG/5ML POSYG PO SCH ×3 (05:11→17:19)
[2018-05-23] MEDS: metroNIDAZOLE 500 MG/NS (PMX) 100 ML IVPB SCH ×3 (05:11→22:46)
[2018-05-23] MEDS: METOPROLOL 50 MG TAB GTB SCH ×3 (05:17→22:47)
[2018-05-23] MEDS: METOLAZONE 5 MG TAB PO SCH (05:18)
[2018-05-23] MEDS: PROPOFOL 100 ML IV SCH ×2 (06:30→17:15)
[2018-05-23] MEDS: ZINC SULFATE 220 MG CAP GTB SCH (08:09)
[2018-05-23] MEDS: COLLAGENASE 5 GM (UD JAR) TOP SCH (08:10)
[2018-05-23] MEDS: CHOLESTYRAMINE (LIGHT) 4 GM PACKET PO SCH (08:10)
[2018-05-23] MEDS: BALSAM PERU/CASTOR OIL 60 GM TUBE TOP SCH ×2 (08:10→22:48)
[2018-05-23] MEDS: FAMOTIDINE 20 MG TAB PEG SCH (08:10)
[2018-05-23] MEDS: ASCORBIC ACID 500 MG TAB GTB SCH (08:10)
[2018-05-23] MEDS: AMIODARONE 200 MG TAB PO SCH ×3 (08:10→22:47)
[2018-05-23] MEDS: MULTIVITAMINS 30 ML CUP GTB SCH (08:18)
[2018-05-23] MEDS: SPIRONOLACTONE 25 MG TAB GTB SCH (08:19)
--- NOTE | 2018-05-23 10:44 | CONS ---
Consult Date/Type/Reason Admit Date/Time May 06, 2018 at 17:38 Initial Consult Date 05/10/18 Type of Consultation: Pulm/CCM Requesting Provider: ROLAND GIRON MD Date/Time of Note DATE: 05/23/18 TIME: 10:41 Subjective No events. On the vent. Sedated. Objective Vitals Vital Signs Date Temp Pulse Resp B/P (MAP) Pulse Ox O2 O2 Flow FiO2 Time Delivery Rate 05/23/18 30 08:00 05/23/18 80 08:00 05/23/18 98.9 21 117/65 Mechanical 08:00 (82) Ventilator 05/23/18 98 05:18 Intake and Output 05/22/18 05/22/18 05/23/18 1515:00 23:00 07:00 IntakeIntake Total 796 ml 696 ml 559 ml OutputOutput Total 660 ml 670 ml 550 ml BalanceBalance 136 ml 26 ml 9 ml Exam HEENT: Neck supple; no JVD; no LAD; + ET tube CVS: RRR, S1 and S2 CHEST: Coarse rhonchi b/l ABD: Obese, soft, NT, + BS EXT: No c/c; ++ edema NEURO: sedated on the vent. Results/Medications Result Diagram: 05/23/18 0400 05/23/18 0400 Results 24 hrs Laboratory Tests Test 05/23/18 04:00 White Blood Count 7.8 # Red Blood Count 2.11 L Hemoglobin 6.7 *L Hematocrit 23.0 L Mean Corpuscular Volume 109.0 H Mean Corpuscular Hemoglobin 31.8 Mean Corpuscular Hemoglobin Concent 29.1 L Red Cell Distribution Width 17.8 H Platelet Count 192 Mean Platelet Volume 10.8 H Immature Granulocytes % 0.600 H Neutrophils % 72.2 Lymphocytes % 14.2 L Monocytes % 9.4 Eosinophils % 3.2 Basophils % 0.4 Nucleated Red Blood Cells % 0.0 Immature Granulocytes # 0.050 H Neutrophils # 5.6 Lymphocytes # 1.1 Monocytes # 0.7 Eosinophils # 0.3 Basophils # 0.0 Nucleated Red Blood Cells # 0.0 Sodium Level 145 H Potassium Level 3.5 Chloride Level 106 Carbon Dioxide Level 29 Anion Gap 10 Blood Urea Nitrogen 60 H Creatinine 2.01 H Est Glomerular Filtrat Rate mL/min Glucose Level 92 Calcium Level 8.4 Phosphorus Level 4.3 Magnesium Level 1.9 Total Bilirubin 0.0 L Direct Bilirubin 0.00 Indirect Bilirubin 0.0 Aspartate Amino Transf (AST/SGOT) 10 L Alanine Aminotransferase (ALT/SGPT) 15 Alkaline Phosphatase 82 Total Protein 5.5 L Albumin 2.1 L Globulin 3.40 H Albumin/Globulin Ratio 0.61 Home Meds Reported Medications Zinc Sulfate* (Zinc Sulfate*) 220 Mg Tablet, 220 MG GTB DAILY, TAB START DATE 05/04/18, END DATE 06/03/18 05/06/18 Diclofenac Sodium* (Voltaren* Gel) 1% -100 Gm Gel, 2 GM TOP TID, #1 TUB 05/06/18 Ascorbic Acid (Vitamin C) 500 Mg Tab, 500 MG GTB DAILY, TAB 05/06/18 Quetiapine Fumarate* (Seroquel*) 100 Mg Tablet, 600 MG GTB HS, #30 TAB 05/06/18 Protein Supplement (Promod) 946 Ml Liquid, 30 ML GTB BID 05/06/18 Epoetin Zen (Procrit) 20,000 Unit/1 Ml Vial, 09843 UNIT IJ Q TUE for FOR ANEMIA OF CKD, VIAL HOLD IFHGB IS EQUAL OR GREATER THAN 11 05/06/18 Ondansetron Hcl* (Ondansetron Hcl* Liq) 4 Mg/5 Ml Solution, 4 MG GTB Q6H PRN for NAUSEA AND/OR VOMITING, ML 05/06/18 Multivitamin with Minerals (Multivitamins with Minerals) 1 Each Tablet, 1 EACH GTB QAM, TAB 05/06/18 Metoprolol Tartrate* (Lopressor*) 25 Mg Tab, 25 MG GTB BID, #60 TAB HOLD FOR SBP<110 OR HR<60 05/06/18 Lorazepam* (Ativan* Intensol) 2 Mg/Ml Soln, 0.5 MG IV* Q6H PRN for ANXIETY, #1 BOTTLE START DATE 04/02/18, END DATE 06/01/18 05/06/18 Lidocaine (Lidocaine) 1 Each Adh..patch, 1 EACH TP Q12H 5% 05/06/18 Ipratropium-Albuterol (Ipratropium-Albuterol) 0.5-3 Mg/3 Ml Ampul.neb, 3 ML INHALATION Q6 PRN for BRONCHOSPASM, #30 VIAL 05/06/18 Ipratropium-Albuterol (Ipratropium-Albuterol) 0.5-3 Mg/3 Ml Ampul.neb, 3 ML INHALATION Q2H PRN for BRONCHOSPASM, #30 VIAL 05/06/18 Famotidine* (Famotidine*) 20 Mg Tablet, 20 MG GTB BID, #60 TAB 05/06/18 Valproic Acid* (Depakene*) 250 Mg/5 Ml Udc Syrup, 100 MG GTB QHS, ML 05/06/18 Clonidine Hcl* (Clonidine Hcl*) 0.1 Mg Tab, 0.1 MG GTB Q6 PRN for NEEDED, TAB FOR SBP>160 OR DBP>90 05/06/18 Aspirin* (Aspirin* Chew) 81 Mg Tab.chew, 81 MG GTB DAILY, TAB.CHEW 05/06/18 Medications Current Medications IV Flush (NS 10 ml) 10 ml PRN IV ; Start 05/06/18 at 20:30 Ascorbic Acid (Vitamin C) 500 mg DAILY GTB Last administered on 05/23/18at 08:10; Admin Dose 500 MG; Start 05/07/18 at 09:00 Albuterol/ Ipratropium (Duoneb) 3 ml Q2H RESP THERAPY PRN HHN SHORTNESS OF BREATH; Start 05/06/18 at 23:30 Zinc Sulfate (Zinc Sulfate) 220 mg DAILY GTB Last administered on 05/23/18at 08:09; Admin Dose 220 MG; Start 05/07/18 at 09:00 Ondansetron HCl (Zofran Tab) 4 mg Q6H PRN GTB NAUSEA AND/OR VOMITING; Start 05/07/18 at 00:15 Multivitamins (Multivitamin) 30 ml DAILY GTB Last administered on 05/23/18at 08:18; Admin Dose 30 ML; Start 05/07/18 at 09:00 Norepinephrine 250 ml @ 1.875 mls/ hr TITRATE IV Last administered on 05/08/18at 13:33; Admin Dose 33.75 MLS/HR; Start 05/08/18 at 03:00 Citric Acid/ Sodium Citrate (Bicitra) 30 ml Q8 PO Last administered on 05/23/18at 05:11; Admin Dose 30 ML; Start 05/09/18 at 08:00 Phenylephrine HCl 80 mg/Dextrose 250 ml @ 18.75 mls/ hr TITRATE IV Last administered on 05/15/18 01:50; Admin Dose 5.63 MLS/HR; Start 05/09/18 at 12:30 Miscellaneous Information (Pending Santyl Order For Wound Care) This patient goldman... PRN PRN XX WOUND CARE; Start 05/09/18 at 17:00 Vancomycin HCl (Vancomycin Oral Syringe) 250 mg Q6 PO Last administered on 05/23/18 05:11; Admin Dose 250 MG; Start 05/12/18 at 00:00 Metronidazole 100 ml @ 100 mls/hr Q8 IVPB Last administered on 05/23/18 05:11; Admin Dose 100 MLS/HR; Start 05/11/18 at 20:00 Collagenase (Santyl) 1 applic DAILY TOP Last administered on 05/23/18 08:10; Admin Dose 1 APPLIC; Start 05/13/18 at 09:00 Propofol 100 ml @ 2.64 mls/hr Q12H IV Last administered on 05/21/18 07:19; Admin Dose 18.48 MLS/HR; Start 05/12/18 at 18:30 Albuterol (Ventolin Hfa) 4 puff Q6H RESP THERAPY INH Last administered on 05/23/18 09:40; Admin Dose 4 PUFF; Start 05/12/18 at 20:00 Ipratropium [place] (Atrovent Hfa) 4 puff Q6H RESP THERAPY INH Last administered on 05/23/18 09:40; Admin Dose 4 PUFF; Start 05/12/18 at 20:00 Cholestyramine Resin (Questran Light) 4 gm BID PO Last administered on 05/23/18 08:10; Admin Dose 4 GM; Start 05/14/18 at 21:00 Heparin Sodium (Porcine) (Heparin (1000 Units/ml)) 2,800 unit AFTER DIALYSIS CATHETER Last administered on 05/20/18 18:08; Admin Dose 2,800 UNIT; Start 05/16/18 at 16:30 Furosemide (Lasix) 40 mg BID DIURETICS IV Last administered on 05/23/18 05:11; Admin Dose 40 MG; Start 05/19/18 at 09:00 Epoetin Zen-epbx (RETACRIT(esrd)) 20,000 unit Tu@1700 SC Last administered on 05/19/18 18:23; Admin Dose 20,000 UNIT; Start 05/19/18 at 17:00 Spironolactone (Aldactone) 50 mg DAILY GTB Last administered on 05/23/18at 08:19; Admin Dose 50 MG; Start 05/21/18 at 09:00 Midazolam HCl 50 ml @ 1 mls/hr TITRATE IV Last administered on 05/23/18at 01:32; Admin Dose 2 MLS/HR; Start 05/21/18 at 10:30 Amiodarone HCl (Cordarone) 200 mg TID PO Last administered on 05/23/18 08:10; Admin Dose 200 MG; Start 05/21/18 at 14:30 Metolazone (Zaroxolyn) 5 mg DAILY@0600 PO Last administered on 05/23/18 05:18; Admin Dose 5 MG; Start 05/22/18 at 09:00 Metoprolol Tartrate (Lopressor) 50 mg Q8 GTB Last administered on 05/23/18 05:17; Admin Dose 50 MG; Start 05/22/18 at 14:00 Famotidine (Pepcid) 20 mg DAILY PEG Last administered on 05/23/18 08:10; Admin Dose 20 MG; Start 05/23/18 at 09:00 Morphine Sulfate (morphine) 6 mg Q4H PRN PEG SEVERE PAIN LEVEL 7-10; Start 05/22/18 at 17:00 Assessment/Plan Assessment/Plan (Daily) IMP: 1. Septic shock likely secondary to recent UTI now C. difficile colitis, possible healthcare associated pneumonia also 2. Acute Renal Failure--likely non-oliguric ATN 3. Resolved metabolic acidosis 4. Encephalopathy--toxic-metabolic 2/2 infection and ARF, in addition to baseline 5. Anemia--r/o acute GIB 6. H/O abdominal abscess 7. Acute hypoxemic respiratory failure secondary to above, continue mechanical ventilation 8. Atrial fibrillation RECS: 1. HD/UF today; transfuse 1-2 units PRBC 2. Continue mechanical ventilation, failed various weaning trials. Would recommend proceed to tracheostomy if family wish to continue current measures 3. Abx as per ID 4. Continue tube feeding as tolerated 5. Aspiration precautions pulmonary toilet 6. Monitor H&H post transfusion 7. Continue goals of care discussion with family as repeat trach would not be in her best interest Critical care time 40 minutes. SALENA IRAHETA MD May 23, 2018 10:44
--- NOTE | 2018-05-23 11:07 | CONS ---
Assessment/Plan Assessment/Plan Assessment/Plan (Daily) Propofol gtt 1. Malfunctioning gastrostomy tube. -resolved 2. Renal failure.- on HD 3. Sepsis. -with mx organisms at trach site wound 4. Chronic obstructive pulmonary disease. 5. Bipolar. 6. Paroxysmal atrial fibrillation. 7. Anemia of chronic disease. No further bleeding noted, hematocrit is stable 8. CHF 9. Elevated alk phos with h/o hepatic venous congestion seen on abd CT in 2018 -resolved 10. Respiratory failure 11. Diarrhea improving with questran 12. UTI with mx organisms 13. H/O deep esophageal ulcer accident 14 mild GI bleeding 15 C. difficile colitis 16. Bilateral pedal edema PLAN: Monitor residuals q 4 hours Continue pepcid and questran and vanco PO Will complete the course of vancomycin and then taper the dose slowly to prevent the recurrence Monitor for acute GI bleeding Consultation Date/Type/Reason Admit Date/Time May 06, 2018 at 17:38 Initial Consult Date 05/10/18 Requesting Provider: ROLAND GIRON MD Date/Time of Note DATE: 05/23/18 TIME: 11:06 24 HR Interval Summary Free Text/Dictation Per staff no evidence of active GI bleeding Diarrhea reduced Exam/Review of Systems Exam Vitals Vital Signs Date Temp Pulse Resp B/P (MAP) Pulse Ox O2 O2 Flow FiO2 Time Delivery Rate 05/23/18 30 08:00 05/23/18 80 08:00 05/23/18 98.9 21 117/65 Mechanical 08:00 (82) Ventilator 05/23/18 98 05:18 Intake and Output 05/22/18 05/22/18 05/23/18 1515:00 23:00 07:00 IntakeIntake Total 796 ml 696 ml 559 ml OutputOutput Total 660 ml 670 ml 550 ml BalanceBalance 136 ml 26 ml 9 ml Constitutional: non-verbal Eyes: nl conjunctiva ENMT: intubated Respiratory: diminished breath sounds Cardiovascular: regular rate and rhythm Gastrointestinal: soft, nl liver, spleen, non-tender Musculoskeletal: nl extremities to inspection, nl gait and stance Extremities: pitting pedal edema Neurological: lethargic Results Result Diagram: 05/23/18 0400 05/23/18 0400 Results 24hrs Laboratory Tests Test 05/23/18 04:00 White Blood Count 7.8 # Red Blood Count 2.11 L Hemoglobin 6.7 *L Hematocrit 23.0 L Mean Corpuscular Volume 109.0 H Mean Corpuscular Hemoglobin 31.8 Mean Corpuscular Hemoglobin Concent 29.1 L Red Cell Distribution Width 17.8 H Platelet Count 192 Mean Platelet Volume 10.8 H Immature Granulocytes % 0.600 H Neutrophils % 72.2 Lymphocytes % 14.2 L Monocytes % 9.4 Eosinophils % 3.2 Basophils % 0.4 Nucleated Red Blood Cells % 0.0 Immature Granulocytes # 0.050 H Neutrophils # 5.6 Lymphocytes # 1.1 Monocytes # 0.7 Eosinophils # 0.3 Basophils # 0.0 Nucleated Red Blood Cells # 0.0 Sodium Level 145 H Potassium Level 3.5 Chloride Level 106 Carbon Dioxide Level 29 Anion Gap 10 Blood Urea Nitrogen 60 H Creatinine 2.01 H Est Glomerular Filtrat Rate mL/min Glucose Level 92 Calcium Level 8.4 Phosphorus Level 4.3 Magnesium Level 1.9 Total Bilirubin 0.0 L Direct Bilirubin 0.00 Indirect Bilirubin 0.0 Aspartate Amino Transf (AST/SGOT) 10 L Alanine Aminotransferase (ALT/SGPT) 15 Alkaline Phosphatase 82 Total Protein 5.5 L Albumin 2.1 L Globulin 3.40 H Albumin/Globulin Ratio 0.61 Medications Medication Current Medications IV Flush (NS 10 ml) 10 ml PRN IV ; Start 05/06/18 at 20:30 Ascorbic Acid (Vitamin C) 500 mg DAILY GTB Last administered on 05/23/18at 08:10; Admin Dose 500 MG; Start 05/07/18 at 09:00 Albuterol/ Ipratropium (Duoneb) 3 ml Q2H RESP THERAPY PRN HHN SHORTNESS OF BREATH; Start 05/06/18 at 23:30 Zinc Sulfate (Zinc Sulfate) 220 mg DAILY GTB Last administered on 05/23/18at 08:09; Admin Dose 220 MG; Start 05/07/18 at 09:00 Ondansetron HCl (Zofran Tab) 4 mg Q6H PRN GTB NAUSEA AND/OR VOMITING; Start 05/07/18 at 00:15 Multivitamins (Multivitamin) 30 ml DAILY GTB Last administered on 05/23/18at 08:18; Admin Dose 30 ML; Start 05/07/18 at 09:00 Norepinephrine 250 ml @ 1.875 mls/ hr TITRATE IV Last administered on 3/22/19at 13:33; Admin Dose 33.75 MLS/HR; Start 05/08/18 at 03:00 Citric Acid/ Sodium Citrate (Bicitra) 30 ml Q8 PO Last administered on 05/23/18 05:11; Admin Dose 30 ML; Start 05/09/18 at 08:00 Phenylephrine HCl 80 mg/Dextrose 250 ml @ 18.75 mls/ hr TITRATE IV Last administered on 05/15/18 01:50; Admin Dose 5.63 MLS/HR; Start 05/09/18 at 12:30 Miscellaneous Information (Pending Santyl Order For Wound Care) This patient goldman... PRN PRN XX WOUND CARE; Start 05/09/18 at 17:00 Vancomycin HCl (Vancomycin Oral Syringe) 250 mg Q6 PO Last administered on 05/23/18 05:11; Admin Dose 250 MG; Start 05/12/18 at 00:00 Metronidazole 100 ml @ 100 mls/hr Q8 IVPB Last administered on 05/23/18 05:11; Admin Dose 100 MLS/HR; Start 05/11/18 at 20:00 Collagenase (Santyl) 1 applic DAILY TOP Last administered on 05/23/18 08:10; Admin Dose 1 APPLIC; Start 05/13/18 at 09:00 Propofol 100 ml @ 2.64 mls/hr Q12H IV Last administered on 05/21/18 07:19; Admin Dose 18.48 MLS/HR; Start 05/12/18 at 18:30 Albuterol (Ventolin Hfa) 4 puff Q6H RESP THERAPY INH Last administered on 05/23/18 09:40; Admin Dose 4 PUFF; Start 05/12/18 at 20:00 Ipratropium [place] (Atrovent Hfa) 4 puff Q6H RESP THERAPY INH Last administer ed on 05/23/18 09:40; Admin Dose 4 PUFF; Start 05/12/18 at 20:00 Cholestyramine Resin (Questran Light) 4 gm BID PO Last administered on 05/23/18 08:10; Admin Dose 4 GM; Start 05/14/18 at 21:00 Heparin Sodium (Porcine) (Heparin (1000 Units/ml)) 2,800 unit AFTER DIALYSIS CATHETER Last administered on 4/3/19at 18:08; Admin Dose 2,800 UNIT; Start 05/16/18 at 16:30 Furosemide (Lasix) 40 mg BID DIURETICS IV Last administered on 05/23/18at 05:11; Admin Dose 40 MG; Start 05/19/18 at 09:00 Epoetin Zen-epbx (RETACRIT(esrd)) 20,000 unit Tu@1700 SC Last administered on 05/19/18at 18:23; Admin Dose 20,000 UNIT; Start 05/19/18 at 17:00 Spironolactone (Aldactone) 50 mg DAILY GTB Last administered on 05/23/18 08:19; Admin Dose 50 MG; Start 05/21/18 at 09:00 Midazolam HCl 50 ml @ 1 mls/hr TITRATE IV Last administered on 05/23/18at 01:32; Admin Dose 2 MLS/HR; Start 05/21/18 at 10:30 Amiodarone HCl (Cordarone) 200 mg TID PO Last administered on 05/23/18at 08:10; Admin Dose 200 MG; Start 05/21/18 at 14:30 Metolazone (Zaroxolyn) 5 mg DAILY@0600 PO Last administered on 05/23/18 05:18; Admin Dose 5 MG; Start 05/22/18 at 09:00 Metoprolol Tartrate (Lopressor) 50 mg Q8 GTB Last administered on 05/23/18at 05:17; Admin Dose 50 MG; Start 05/22/18 at 14:00 Famotidine (Pepcid) 20 mg DAILY PEG Last administered on 05/23/18at 08:10; Admin Dose 20 MG; Start 05/23/18 at 09:00 Morphine Sulfate (morphine) 6 mg Q4H PRN PEG SEVERE PAIN LEVEL 7-10; Start 05/22/18 at 17:00 QUINTEN UMAÑA MD May 23, 2018 11:07
--- NOTE | 2018-05-23 11:24 | CONS ---
Assessment/Plan Assessment/Plan Assessment/Plan (Daily) 1. Nonoliguric acute kidney injury on top of chronic kidney disease with previous baseline creatinine around 2 to 2.5 mg/dL. Etiology of NATHAN is secondary to acute tubular necrosis due to shock, sepsis. The patient was initiated on hemodialysis for solute clearance volume removal. The patient has shown signs of renal recovery with adequate urine output. Continue to hold hemodialysis. Continue to monitor renal function closely. Otherwise, continue current treatment plan, supportive care, renally dose all meds. 2. Volume overload secondary to acute kidney injury, chronic kidney disease, d ecompensated heart failure. The patient has grossly anasarca. Continue aggressive diuretic therapy, continue Lasix. 3. Anemia. acute drop. receiving prbc. 4. Mineral bone disorder. Monitor calcium and phosphorus levels. 5. Hypernatremia. cont free water flushes to 300 mL q.4 hours. improving. Continue to monitor serial sodium levels. 6. Ventilator dependent respiratory failure. Vent settings and ABG was reviewed. Continue to monitor. Follow up with pulmonary. 7. Sepsis, status post shock secondary to urinary tract infection and pneumonia. Patient is completing antibiotic course. 8. Tachyarrhythmia. Continue current medical management. Follow up with cardiology. 9. Dysphagia, status post G-tube feeding. 10. Acute encephalopathy, etiology toxic metabolic. Continue to monitor. 11. Lower extremity wounds. Continue wound care. Consultation Date/Type/Reason Admit Date/Time May 06, 2018 at 17:38 Initial Consult Date 05/10/18 Requesting Provider: ROLAND GIRON MD Date/Time of Note DATE: 05/23/18 TIME: 11:20 24 HR Interval Summary Free Text/Dictation remains intubated receiving prbc adequate urine output blood pressure stable d/w rn Gen: nad cv: rrr pulm coarse bs abd soft, nd ,nt +bs ext: + edema Exam/Review of Systems Exam Vitals Vital Signs Date Temp Pulse Resp B/P (MAP) Pulse Ox O2 O2 Flow FiO2 Time Delivery Rate 05/23/18 30 08:00 05/23/18 80 08:00 05/23/18 98.9 21 117/65 Mechanical 08:00 (82) Ventilator 05/23/18 98 05:18 Intake and Output 05/22/18 05/22/18 05/23/18 1515:00 23:00 07:00 IntakeIntake Total 796 ml 696 ml 559 ml OutputOutput Total 660 ml 670 ml 550 ml BalanceBalance 136 ml 26 ml 9 ml Results Result Diagram: 05/23/18 0400 05/23/18 0400 Results 24hrs Laboratory Tests Test 05/23/18 04:00 White Blood Count 7.8 # Red Blood Count 2.11 L Hemoglobin 6.7 *L Hematocrit 23.0 L Mean Corpuscular Volume 109.0 H Mean Corpuscular Hemoglobin 31.8 Mean Corpuscular Hemoglobin Concent 29.1 L Red Cell Distribution Width 17.8 H Platelet Count 192 Mean Platelet Volume 10.8 H Immature Granulocytes % 0.600 H Neutrophils % 72.2 Lymphocytes % 14.2 L Monocytes % 9.4 Eosinophils % 3.2 Basophils % 0.4 Nucleated Red Blood Cells % 0.0 Immature Granulocytes # 0.050 H Neutrophils # 5.6 Lymphocytes # 1.1 Monocytes # 0.7 Eosinophils # 0.3 Basophils # 0.0 Nucleated Red Blood Cells # 0.0 Sodium Level 145 H Potassium Level 3.5 Chloride Level 106 Carbon Dioxide Level 29 Anion Gap 10 Blood Urea Nitrogen 60 H Creatinine 2.01 H Est Glomerular Filtrat Rate mL/min Glucose Level 92 Calcium Level 8.4 Phosphorus Level 4.3 Magnesium Level 1.9 Total Bilirubin 0.0 L Direct Bilirubin 0.00 Indirect Bilirubin 0.0 Aspartate Amino Transf (AST/SGOT) 10 L Alanine Aminotransferase (ALT/SGPT) 15 Alkaline Phosphatase 82 Total Protein 5.5 L Albumin 2.1 L Globulin 3.40 H Albumin/Globulin Ratio 0.61 Medications Medication Current Medications IV Flush (NS 10 ml) 10 ml PRN IV ; Start 05/06/18 at 20:30 Ascorbic Acid (Vitamin C) 500 mg DAILY GTB Last administered on 05/23/18at 08:10; Admin Dose 500 MG; Start 05/07/18 at 09:00 Albuterol/ Ipratropium (Duoneb) 3 ml Q2H RESP THERAPY PRN HHN SHORTNESS OF BREATH; Start 05/06/18 at 23:30 Zinc Sulfate (Zinc Sulfate) 220 mg DAILY GTB Last administered on 05/23/18at 08:09; Admin Dose 220 MG; Start 05/07/18 at 09:00 Ondansetron HCl (Zofran Tab) 4 mg Q6H PRN GTB NAUSEA AND/OR VOMITING; Start 05/07/18 at 00:15 Multivitamins (Multivitamin) 30 ml DAILY GTB Last administered on 05/23/18 08:18; Admin Dose 30 ML; Start 05/07/18 at 09:00 Norepinephrine 250 ml @ 1.875 mls/ hr TITRATE IV Last administered on 05/08/18 13:33; Admin Dose 33.75 MLS/HR; Start 05/08/18 at 03:00 Citric Acid/ Sodium Citrate (Bicitra) 30 ml Q8 PO Last administered on 05/23/18 05:11; Admin Dose 30 ML; Start 05/09/18 at 08:00 Phenylephrine HCl 80 mg/Dextrose 250 ml @ 18.75 mls/ hr TITRATE IV Last administered on 05/15/18 01:50; Admin Dose 5.63 MLS/HR; Start 05/09/18 at 12:30 Miscellaneous Information (Pending Santyl Order For Wound Care) This patient goldman... PRN PRN XX WOUND CARE; Start 05/09/18 at 17:00 Vancomycin HCl (Vancomycin Oral Syringe) 250 mg Q6 PO Last administered on 05/23/18 05:11; Admin Dose 250 MG; Start 05/12/18 at 00:00 Metronidazole 100 ml @ 100 mls/hr Q8 IVPB Last administered on 05/23/18 05:11; Admin Dose 100 MLS/HR; Start 05/11/18 at 20:00 Collagenase (Santyl) 1 applic DAILY TOP Last administered on 05/23/18 08:10; Admin Dose 1 APPLIC; Start 05/13/18 at 09:00 Propofol 100 ml @ 2.64 mls/hr Q12H IV Last administered on 05/21/18 07:19; Admin Dose 18.48 MLS/HR; Start 05/12/18 at 18:30 Albuterol (Ventolin Hfa) 4 puff Q6H RESP THERAPY INH Last administered on 05/23/18 09:40; Admin Dose 4 PUFF; Start 05/12/18 at 20:00 Ipratropium [place] (Atrovent Hfa) 4 puff Q6H RESP THERAPY INH Last administered on 05/23/18 09:40; Admin Dose 4 PUFF; Start 05/12/18 at 20:00 Cholestyramine Resin (Questran Light) 4 gm BID PO Last administered on 05/23/18 08:10; Admin Dose 4 GM; Start 05/14/18 at 21:00 Heparin Sodium (Porcine) (Heparin (1000 Units/ml)) 2,800 unit AFTER DIALYSIS CATHETER Last administered on 05/20/18 18:08; Admin Dose 2,800 UNIT; Start 05/16/18 at 16:30 Furosemide (Lasix) 40 mg BID DIURETICS IV Last administered on 05/23/18 05:11; Admin Dose 40 MG; Start 05/19/18 at 09:00 Epoetin Zen-epbx (RETACRIT(esrd)) 20,000 unit Tu@1700 SC Last administered on 05/19/18 18:23; Admin Dose 20,000 UNIT; Start 05/19/18 at 17:00 Spironolactone (Aldactone) 50 mg DAILY GTB Last administered on 05/23/18 08:19; Admin Dose 50 MG; Start 05/21/18 at 09:00 Midazolam HCl 50 ml @ 1 mls/hr TITRATE IV Last administered on 05/23/18 01:32; Admin Dose 2 MLS/HR; Start 05/21/18 at 10:30 Amiodarone HCl (Cordarone) 200 mg TID PO Last administered on 05/23/18 08:10; Admin Dose 200 MG; Start 05/21/18 at 14:30 Metolazone (Zaroxolyn) 5 mg DAILY@0600 PO Last administered on 05/23/18 05:18; Admin Dose 5 MG; Start 05/22/18 at 09:00 Metoprolol Tartrate (Lopressor) 50 mg Q8 GTB Last administered on 05/23/18 05:17; Admin Dose 50 MG; Start 05/22/18 at 14:00 Famotidine (Pepcid) 20 mg DAILY PEG Last administered on 05/23/18 08:10; Admin Dose 20 MG; Start 05/23/18 at 09:00 Morphine Sulfate (morphine) 6 mg Q4H PRN PEG SEVERE PAIN LEVEL 7-10; Start 05/22/18 at 17:00 ALIZE FLORES MD May 23, 2018 11:24
--- NOTE | 2018-05-23 11:37 | PN ---
Date/Time of Note Date/Time of Note DATE: 05/23/18 TIME: 11:36 Assessment/Plan VTE Prophylaxis [place] [facility] [place] risk: 12 SCD applied [place] [facility] [place] No SCD contraindicated: other Pharmacological prophylaxis: LMWH Lines/Catheters IV Catheter Type (from [facility]): KASANDRA Urinary Cath still in place: Yes Reason Cath still needed: skin wounds contaminated by urine Assessment/Plan Hospital Course 1. Nonoliguric acute kidney injury on top of chronic kidney disease with previous baseline creatinine around 2 to 2.5 mg/dL. Etiology of NATHAN is se condary to acute tubular necrosis due to shock, sepsis. The patient was initiated on hemodialysis for solute clearance volume removal. The patient has shown signs of renal recovery. Continue to hold hemodialysis. Continue to monitor renal function closely. Otherwise, continue current treatment plan, supportive care, renally dose all meds. 2. Volume overload secondary to acute kidney injury, chronic kidney disease, decompensated heart failure. The patient has grossly anasarca. Continue ag gressive diuretic therapy, continue Lasix. 3. Metolazone, monitor electrolytes, renal function closely. 4. Hypokalemia and hypomagnesemia. Continue to monitor and replete. 5. Anemia. Monitor hemoglobin and hematocrit levels. 6. Mineral bone disorder. Monitor calcium and phosphorus levels. 7. Hypernatremia. Will increase free water flushes to 300 mL q.4 hours. Continue to monitor serial sodium levels. 8. Ventilator dependent respiratory failure. Vent settings and ABG was reviewed. Continue to monitor. Follow up with pulmonary. 9. Sepsis, status post shock secondary to urinary tract infection and pneumonia. Patient is completing antibiotic course. 10. Tachyarrhythmia. Continue current medical management. Follow up with cardiology. 11. Dysphagia, status post G-tube feeding. 12. Acute encephalopathy, etiology toxic metabolic. Continue to monitor. 13. Lower extremity wounds. Continue wound care. Result Diagram: 05/23/18 0400 05/23/18 0400 Results 24hrs Laboratory Tests Test 05/23/18 04:00 White Blood Count 7.8 # Red Blood Count 2.11 L Hemoglobin 6.7 *L Hematocrit 23.0 L Mean Corpuscular Volume 109.0 H Mean Corpuscular Hemoglobin 31.8 Mean Corpuscular Hemoglobin Concent 29.1 L Red Cell Distribution Width 17.8 H Platelet Count 192 Mean Platelet Volume 10.8 H Immature Granulocytes % 0.600 H Neutrophils % 72.2 Lymphocytes % 14.2 L Monocytes % 9.4 Eosinophils % 3.2 Basophils % 0.4 Nucleated Red Blood Cells % 0.0 Immature Granulocytes # 0.050 H Neutrophils # 5.6 Lymphocytes # 1.1 Monocytes # 0.7 Eosinophils # 0.3 Basophils # 0.0 Nucleated Red Blood Cells # 0.0 Sodium Level 145 H Potassium Level 3.5 Chloride Level 106 Carbon Dioxide Level 29 Anion Gap 10 Blood Urea Nitrogen 60 H Creatinine 2.01 H Est Glomerular Filtrat Rate mL/min Glucose Level 92 Calcium Level 8.4 Phosphorus Level 4.3 Magnesium Level 1.9 Total Bilirubin 0.0 L Direct Bilirubin 0.00 Indirect Bilirubin 0.0 Aspartate Amino Transf (AST/SGOT) 10 L Alanine Aminotransferase (ALT/SGPT) 15 Alkaline Phosphatase 82 Total Protein 5.5 L Albumin 2.1 L Globulin 3.40 H Albumin/Globulin Ratio 0.61 Subjective 24 Hr Interval Summary Free Text/Dictation Patient remain sedated, on vent Exam/Review of Systems Exam Vitals Vital Signs Date Temp Pulse Resp B/P (MAP) Pulse Ox O2 O2 Flow FiO2 Time Delivery Rate 05/23/18 30 08:00 05/23/18 80 08:00 05/23/18 98.9 21 117/65 Mechanical 08:00 (82) Ventilator 05/23/18 98 05:18 Intake and Output 05/22/18 05/22/18 05/23/18 1414:59 22:59 06:59 IntakeIntake Total 596 ml 696 ml 796 ml OutputOutput Total 665 ml 645 ml 650 ml BalanceBalance -69 ml 51 ml 146 ml Constitutional: well developed Head: normocephalic, atraumatic Neck: supple Respiratory: diminished breath sounds Cardiovascular: regular rate and rhythm Gastrointestinal: soft, non-tender Extremities: normal pulses, edema Results Results 24hrs Laboratory Tests Test 05/23/18 04:00 White Blood Count 7.8 # Red Blood Count 2.11 L Hemoglobin 6.7 *L Hematocrit 23.0 L Mean Corpuscular Volume 109.0 H Mean Corpuscular Hemoglobin 31.8 Mean Corpuscular Hemoglobin Concent 29.1 L Red Cell Distribution Width 17.8 H Platelet Count 192 Mean Platelet Volume 10.8 H Immature Granulocytes % 0.600 H Neutrophils % 72.2 Lymphocytes % 14.2 L Monocytes % 9.4 Eosinophils % 3.2 Basophils % 0.4 Nucleated Red Blood Cells % 0.0 Immature Granulocytes # 0.050 H Neutrophils # 5.6 Lymphocytes # 1.1 Monocytes # 0.7 Eosinophils # 0.3 Basophils # 0.0 Nucleated Red Blood Cells # 0.0 Sodium Level 145 H Potassium Level 3.5 Chloride Level 106 Carbon Dioxide Level 29 Anion Gap 10 Blood Urea Nitrogen 60 H Creatinine 2.01 H Est Glomerular Filtrat Rate mL/min Glucose Level 92 Calcium Level 8.4 Phosphorus Level 4.3 Magnesium Level 1.9 Total Bilirubin 0.0 L Direct Bilirubin 0.00 Indirect Bilirubin 0.0 Aspartate Amino Transf (AST/SGOT) 10 L Alanine Aminotransferase (ALT/SGPT) 15 Alkaline Phosphatase 82 Total Protein 5.5 L Albumin 2.1 L Globulin 3.40 H Albumin/Globulin Ratio 0.61 Medications Medication Current Medications IV Flush (NS 10 ml) 10 ml PRN IV ; Start 05/06/18 at 20:30 Ascorbic Acid (Vitamin C) 500 mg DAILY GTB Last administered on 05/23/18at 08:10; Admin Dose 500 MG; Start 05/07/18 at 09:00 Albuterol/ Ipratropium (Duoneb) 3 ml Q2H RESP THERAPY PRN HHN SHORTNESS OF BREATH; Start 05/06/18 at 23:30 Zinc Sulfate (Zinc Sulfate) 220 mg DAILY GTB Last administered on 05/23/18 08:09; Admin Dose 220 MG; Start 05/07/18 at 09:00 Ondansetron HCl (Zofran Tab) 4 mg Q6H PRN GTB NAUSEA AND/OR VOMITING; Start 05/07/18 at 00:15 Multivitamins (Multivitamin) 30 ml DAILY GTB Last administered on 05/23/18at 0 8:18; Admin Dose 30 ML; Start 05/07/18 at 09:00 Norepinephrine 250 ml @ 1.875 mls/ hr TITRATE IV Last administered on 05/08/18at 13:33; Admin Dose 33.75 MLS/HR; Start 05/08/18 at 03:00 Citric Acid/ Sodium Citrate (Bicitra) 30 ml Q8 PO Last administered on 05/23/18at 05:11; Admin Dose 30 ML; Start 05/09/18 at 08:00 Phenylephrine HCl 80 mg/Dextrose 250 ml @ 18.75 mls/ hr TITRATE IV Last administered on 05/15/18 01:50; Admin Dose 5.63 MLS/HR; Start 05/09/18 at 12:30 Miscellaneous Information (Pending Santyl Order For Wound Care) This patient goldman... PRN PRN XX WOUND CARE; Start 05/09/18 at 17:00 Vancomycin HCl (Vancomycin Oral Syringe) 250 mg Q6 PO Last administered on 05/23/18 05:11; Admin Dose 250 MG; Start 05/12/18 at 00:00 Metronidazole 100 ml @ 100 mls/hr Q8 IVPB Last administered on 05/23/18 05:11; Admin Dose 100 MLS/HR; Start 05/11/18 at 20:00 Collagenase (Santyl) 1 applic DAILY TOP Last administered on 05/23/18 08:10; Admin Dose 1 APPLIC; Start 05/13/18 at 09:00 Propofol 100 ml @ 2.64 mls/hr Q12H IV Last administered on 05/21/18 07:19; Admin Dose 18.48 MLS/HR; Start 05/12/18 at 18:30 Albuterol (Ventolin Hfa) 4 puff Q6H RESP THERAPY INH Last administered on 05/23/18 09:40; Admin Dose 4 PUFF; Start 05/12/18 at 20:00 Ipratropium [place] (Atrovent Hfa) 4 puff Q6H RESP THERAPY INH Last administered on 05/23/18 09:40; Admin Dose 4 PUFF; Start 05/12/18 at 20:00 Cholestyramine Resin (Questran Light) 4 gm BID PO Last administered on 05/23/18 08:10; Admin Dose 4 GM; Start 05/14/18 at 21:00 Heparin Sodium (Porcine) (Heparin (1000 Units/ml)) 2,800 unit AFTER DIALYSIS CATHETER Last administered on 05/20/18 18:08; Admin Dose 2,800 UNIT; Start 05/16/18 at 16:30 Furosemide (Lasix) 40 mg BID DIURETICS IV Last administered on 05/23/18 05:11; Admin Dose 40 MG; Start 05/19/18 at 09:00 Epoetin Zne-epbx (RETACRIT(esrd)) 20,000 unit Tu@1700 SC Last administered on 05/19/18 18:23; Admin Dose 20,000 UNIT; Start 05/19/18 at 17:00 Spironolactone (Aldactone) 50 mg DAILY GTB Last administered on 05/23/18 08:19; Admin Dose 50 MG; Start 05/21/18 at 09:00 Midazolam HCl 50 ml @ 1 mls/hr TITRATE IV Last administered on 05/23/18at 01:32; Admin Dose 2 MLS/HR; Start 05/21/18 at 10:30 Amiodarone HCl (Cordarone) 200 mg TID PO Last administered on 05/23/18 08:10; Admin Dose 200 MG; Start 05/21/18 at 14:30 Metolazone (Zaroxolyn) 5 mg DAILY@0600 PO Last administered on 05/23/18 05:18; Admin Dose 5 MG; Start 05/22/18 at 09:00 Metoprolol Tartrate (Lopressor) 50 mg Q8 GTB Last administered on 05/23/18 05:17; Admin Dose 50 MG; Start 05/22/18 at 14:00 Famotidine (Pepcid) 20 mg DAILY PEG Last administered on 05/23/18at 08:10; Admin Dose 20 MG; Start 05/23/18 at 09:00 Morphine Sulfate (morphine) 6 mg Q4H PRN PEG SEVERE PAIN LEVEL 7-10; Start 05/22/18 at 17:00 STEPHANIE BAL May 23, 2018 11:37
--- NOTE | 2018-05-23 21:12 | CONS ---
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 colonization of the airway by pseudomonas and E SBL+klebsiella - h/o possible, recurrent HCAP due to pseudomonas and ESBL+klebsiella - h/o recurrent HCAP due to MRSA and Enterobacter (culture of tracheal aspirate on 07/16/2017 that was collected at [facility]) . Pt took vancomycin and ceftazidime - h/o acute respiratory distress post-thoracentesis, resolved - h/o thoracentesis on 07/18/2017, transudative (protein <2, LDH 279) - h/o bleeding from the trach site - h/o septic shock due to pneumonia, ARDS, bacteremia, fungemia - h/o ARDS - h/o smoking - COPD - ILD # Cardiac - h/o PAF, improved # GI - C diff colitis, diagnosed on 05/11/2018 - h/o intermittent diarrhea, Pt had multiple negative C. diff tests at [facility] at [facility] in the past; none was positive until 05/11/2018 - dysphagia - h/o PEG placement 06/13/2018 - protein calorie malnutrition - h/o coffee ground emesis/UGIB on 12/23/2017 due to deep ulceration of distal esophagus and gastritis on EGD 12/26/2017. No e/o H. pylori - h/o possible appendicitis on CT on 11/22/2017, Pt took ertapenem (11/24/2017- 12/01/2017) - h/o extensive adhesions lower abdominal and pelvis between small bowel to each other and to colon and to abdominal wall, anterior pelvic wall chronic abscess secondary to probably an old perforated diverticulitis, torsion of small bowel around these dense adhesion causing multiple obstructive points - h/o laparoscopic exploration and extensive lysis of adhesions and drainage of anterior pelvic wall abscess 09/16/2017. Cultures were negative, no e/o malign venkat. Pt took pip/tazo (09/16/2017-09/26/2017) - h/o partial obstruction mid jejunum in L anterior central pelvis with suggestion of a 3 cm soft tissue mass on CT 08/28/2017 - h/o internal stomal deep ulcer behind the internal bumper, gastritis and esophagitis, Rodriguez's cannot be ruled out, per EGD with biopsy 07/23/2017 - h/o GIB s/p flex sig showed polyp; stool OB negative on 06/29/17 - h/o stool OB positive status - h/o SBO and ileus due to pain meds - h/o EGD and exchange of PEG on 09/01/2017 - h/o mildly elevated CEA # renal/ - anasarca - started on HD on 05/15/2018, via Kem in R groin - recurrent NATHAN on CKD - 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 His strain of CRE was sensitive to colistin, Avycaz, and Vabomere but resistant to Zerbaxa (reported on 05/19/2018) - Hyponatremia - Hyperkalemia, now hypokalemia - Metabolic acidosis - adrenal insufficiency - h/o vaginal bleed - h/o colonization of urinary tract by ESBL+klebsiella, VRE - h/o recurrent, symptomatic UTI due to carbapenem-resistant kleb (MDR strain) per urine culture 10/04/17, 10/09/17, 10/21/2017, P took colistin (10/09/2017- 10/15/2017), fosfomycin for carbapenemase-producing klebsiella and VRE on 10/25/2017 and 10/28/2017 - h/o funguria - h/o urinary retention # fungemia, bacteremia - h/o bacteremia due to coag negative Staph, probable contaminant as her WBC level improved initially without antibiotic - 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 improved. Probable darrian festation of endocarditis. Pt declined MRI on 08/06/2017 - h/o infection of R toes due to pseudomonas. coagulase negative Staph likely a colonizer. resolved - h/o intertrigo of the groin, resolved with nystatin powder - h/o scabies, locally crusted lesion over L scapula, s/p permethrin cream and pGT ivermectin on 08/11/2017, 08/12/2017, 08/19/2017. Repeat skin scraping on 08/21/2017 was negative for scabies # psych, neuro - acute toxic metabolic encephalopathy - decreased hearing b/l - h/o critical illness polyneuropathy - anxiety/depression, bipolar d/o, seen by Psychiatry in the past - chronic pain syndrome - h/o medical non-compliance: she would refuse her medications, treatment and straight catheterization at times # hematological, vascular - chronic anemia requiring blood transfusion intermittently - Macrocytic anemia - 3.1 cm AAA on imaging - PVD recommendations: - continue pGT vancomycin (05/11/2018-) and IV metronidazole (05/11/2018-) for C diff colitis. Pt completed meropenem for HCAP (05/13/2018-05/19/2018) management d/w Pt's RN, dialysis nurse the critical care time I took to care for this Pt today was from 1999 to 2029 Consultation Date/Type/Reason Admit Date/Time May 06, 2018 at 17:38 Initial Consult Date 05/10/18 Type of Consult ID Requesting Provider: ROLAND GIRON MD Date/Time of Note DATE: 05/23/18 TIME: 21:08 24 HR Interval Summary Subjective hx not possible: pt non-verbal, pt critical, pt critical status Exam/Review of Systems Exam Vitals Vital Signs Date Temp Pulse Resp B/P (MAP) Pulse Ox O2 O2 Flow FiO2 Time Delivery Rate 05/23/18 77 23 127/66 Mechanical 18:00 (86) Ventilator 05/23/18 100 30 17:20 05/23/18 99.0 16:00 Intake and Output 05/22/18 05/22/18 05/23/18 1515:00 23:00 07:00 IntakeIntake Total 796 ml 696 ml 594 ml OutputOutput Total 660 ml 670 ml 600 ml BalanceBalance 136 ml 26 ml -6 ml Constitutional: non-verbal Psych: confusion Head: normocephalic, atraumatic Eyes: nl conjunctiva, nl lids ENMT: nl external ears & nose, nl nasal mucosa & septum, mucosa pink and moist, other (eschar on the lips) Neck: other (former trach site is dressed) Respiratory: diminished breath sounds Cardiovascular: regular rate and rhythm, nl pulses, edema Gastrointestinal: soft, non-tender, distended, other (GC) Musculoskeletal: No joint tenderness Extremities: edema, pitting pedal edema Neurological: lethargic Skin: ecchymosis Results Result Diagram: 05/23/18 0400 05/23/18 0400 Results 24hrs Laboratory Tests Test 05/23/18 04:00 White Blood Count 7.8 # Red Blood Count 2.11 L Hemoglobin 6.7 *L Hematocrit 23.0 L Mean Corpuscular Volume 109.0 H Mean Corpuscular Hemoglobin 31.8 Mean Corpuscular Hemoglobin Concent 29.1 L Red Cell Distribution Width 17.8 H Platelet Count 192 Mean Platelet Volume 10.8 H Immature Granulocytes % 0.600 H Neutrophils % 72.2 Lymphocytes % 14.2 L Monocytes % 9.4 Eosinophils % 3.2 Basophils % 0.4 Nucleated Red Blood Cells % 0.0 Immature Granulocytes # 0.050 H Neutrophils # 5.6 Lymphocytes # 1.1 Monocytes # 0.7 Eosinophils # 0.3 Basophils # 0.0 Nucleated Red Blood Cells # 0.0 Sodium Level 145 H Potassium Level 3.5 Chloride Level 106 Carbon Dioxide Level 29 Anion Gap 10 Blood Urea Nitrogen 60 H Creatinine 2.01 H Est Glomerular Filtrat Rate mL/min Glucose Level 92 Calcium Level 8.4 Phosphorus Level 4.3 Magnesium Level 1.9 Total Bilirubin 0.0 L Direct Bilirubin 0.00 Indirect Bilirubin 0.0 Aspartate Amino Transf (AST/SGOT) 10 L Alanine Aminotransferase (ALT/SGPT) 15 Alkaline Phosphatase 82 Total Protein 5.5 L Albumin 2.1 L Globulin 3.40 H Albumin/Globulin Ratio 0.61 Medications Medication Current Medications IV Flush (NS 10 ml) 10 ml PRN IV ; Start 05/06/18 at 20:30 Ascorbic Acid (Vitamin C) 500 mg DAILY GTB Last administered on 05/23/18 08:10; Admin Dose 500 MG; Start 05/07/18 at 09:00 Albuterol/ Ipratropium (Duoneb) 3 ml Q2H RESP THERAPY PRN HHN SHORTNESS OF BREATH; Start 05/06/18 at 23:30 Zinc Sulfate (Zinc Sulfate) 220 mg DAILY GTB Last administered on 05/23/18 08:09; Admin Dose 220 MG; Start 05/07/18 at 09:00 Ondansetron HCl (Zofran Tab) 4 mg Q6H PRN GTB NAUSEA AND/OR VOMITING; Start 05/07/18 at 00:15 Multivitamins (Multivitamin) 30 ml DAILY GTB Last administered on 05/23/18 08:18; Admin Dose 30 ML; Start 05/07/18 at 09:00 Norepinephrine 250 ml @ 1.875 mls/ hr TITRATE IV Last administered on 05/08/18 13:33; Admin Dose 33.75 MLS/HR; Start 05/08/18 at 03:00 Citric Acid/ Sodium Citrate (Bicitra) 30 ml Q8 PO Last administered on 05/23/18 14:12; Admin Dose 30 ML; Start 05/09/18 at 08:00 Phenylephrine HCl 80 mg/Dextrose 250 ml @ 18.75 mls/ hr TITRATE IV Last ad ministered on 05/15/18at 01:50; Admin Dose 5.63 MLS/HR; Start 05/09/18 at 12:30 [facility]isc[facility] This patient goldman... PRN PRN XX WOUND CARE; Start 05/09/18 at 17:00 Vancomycin HCl (Vancomycin Oral Syringe) 250 mg Q6 PO Last administered on 05/23/18 17:19; Admin Dose 250 MG; Start 05/12/18 at 00:00 Metronidazole 100 ml @ 100 mls/hr Q8 IVPB Last administered on 05/23/18 13:10; Admin Dose 100 MLS/HR; Start 05/11/18 at 20:00 Collagenase (Santyl) 1 applic DAILY TOP Last administered on 05/23/18 08:10; Admin Dose 1 APPLIC; Start 05/13/18 at 09:00 Propofol 100 ml @ 2.64 mls/hr Q12H IV Last administered on 05/21/18 07:19; Admin Dose 18.48 MLS/HR; Start 05/12/18 at 18:30 Albuterol (Ventolin Hfa) 4 puff Q6H RESP THERAPY INH Last administered on 19:21; Admin Dose 4 PUFF; Start 05/12/18 at 20:00 Ipratropium [place] (Atrovent Hfa) 4 puff Q6H RESP THERAPY INH Last administered on 05/23/18 19:21; Admin Dose 4 PUFF; Start 05/12/18 at 20:00 Cholestyramine Resin (Questran Light) 4 gm BID PO Last administered on 05/23/18 08:10; Admin Dose 4 GM; Start 05/14/18 at 21:00 Heparin Sodium (Porcine) (Heparin (1000 Units/ml)) 2,800 unit AFTER DIALYSIS CATHETER Last administered on 05/20/18 18:08; Admin Dose 2,800 UNIT; Start 05/16/18 at 16:30 Furosemide (Lasix) 40 mg BID DIURETICS IV Last administered on 05/23/18 17:19; Admin Dose 40 MG; Start 05/19/18 at 09:00 Epoetin Zen-epbx (RETACRIT(esrd)) 20,000 unit Tu@1700 SC Last administered on 05/19/18 18:23; Admin Dose 20,000 UNIT; Start 05/19/18 at 17:00 Spironolactone (Aldactone) 50 mg DAILY GTB Last administered on 05/23/18 08:19; Admin Dose 50 MG; Start 05/21/18 at 09:00 Midazolam HCl 50 ml @ 1 mls/hr TITRATE IV Last administered on 05/23/18 01:32; Admin Dose 2 MLS/HR; Start 05/21/18 at 10:30 Amiodarone HCl (Cordarone) 200 mg TID PO Last administered on 05/23/18at 13:10; Admin Dose 200 MG; Start 05/21/18 at 14:30 Metolazone (Zaroxolyn) 5 mg DAILY@0600 PO Last administered on 05/23/18at 05:18; Admin Dose 5 MG; Start 05/22/18 at 09:00 Metoprolol Tartrate (Lopressor) 50 mg Q8 GTB Last administered on 05/23/18at 13:10; Admin Dose 50 MG; Start 05/22/18 at 14:00 Famotidine (Pepcid) 20 mg DAILY PEG Last administered on 05/23/18at 08:10; Admin Dose 20 MG; Start 05/23/18 at 09:00 Morphine Sulfate (morphine) 6 mg Q4H PRN PEG SEVERE PAIN LEVEL 7-10; Start 05/22/18 at 17:00 CELESTINE MURPHY M.D. May 23, 2018 21:12
[2018-05-23] MEDS: HEPARIN 1000 UNITS/ML 10 ML INJ CATHETER SCH (22:55)
[2018-05-24] VITALS (37 sets, daily range): BP systolic 103–149; BP diastolic 46–111; PULSE 65–107; RESP 19–37
[2018-05-24] MEDS: CHOLESTYRAMINE (LIGHT) 4 GM PACKET PO SCH ×3 (00:37→23:36)
[2018-05-24] MEDS: VANCOMYCIN HCL 250 MG/5ML POSYG PO SCH ×4 (00:37→17:13)
[2018-05-24] MEDS: IPRATROPIUM (HFA) 12.9 GM INHALER INH SCH ×4 (01:12→19:37)
[2018-05-24] MEDS: ALBUTEROL HFA 8 GM INHALER INH SCH ×4 (01:12→19:37)
[2018-05-24] MEDS: MIDAZOLAM (DRIP) 50 mg/50 mL 50 ML IV SCH (03:13)
[2018-05-24] MEDS: PROPOFOL 100 ML IV SCH ×2 (05:38→17:13)
[2018-05-24] MEDS: METOPROLOL 50 MG TAB GTB SCH ×3 (06:07→21:17)
[2018-05-24] MEDS: METOLAZONE 5 MG TAB PO SCH (06:07)
[2018-05-24] MEDS: CITRIC ACID/NA CITRATE 30 ML CUP PO SCH ×3 (06:07→21:16)
[2018-05-24] MEDS: FUROSEMIDE 40 MG INJ IV SCH ×2 (06:07→17:13)
[2018-05-24] MEDS: metroNIDAZOLE 500 MG/NS (PMX) 100 ML IVPB SCH ×3 (06:08→21:17)
[2018-05-24] MEDS: ZINC SULFATE 220 MG CAP GTB SCH (08:45)
[2018-05-24] MEDS: MULTIVITAMINS 30 ML CUP GTB SCH (08:45)
[2018-05-24] MEDS: AMIODARONE 200 MG TAB PO SCH ×3 (08:46→21:16)
[2018-05-24] MEDS: FAMOTIDINE 20 MG TAB PEG SCH (08:46)
[2018-05-24] MEDS: SPIRONOLACTONE 25 MG TAB GTB SCH (08:46)
[2018-05-24] MEDS: ASCORBIC ACID 500 MG TAB GTB SCH (08:46)
[2018-05-24] MEDS: COLLAGENASE 5 GM (UD JAR) TOP SCH (08:47)
[2018-05-24] MEDS: BALSAM PERU/CASTOR OIL 60 GM TUBE TOP SCH ×2 (08:47→21:17)
--- NOTE | 2018-05-24 10:54 | CONS ---
Consult Date/Type/Reason Admit Date/Time May 06, 2018 at 17:38 Initial Consult Date 05/10/18 Type of Consultation: Pulm/CCM Requesting Provider: ROLAND GIRON MD Date/Time of Note DATE: 05/24/18 TIME: 10:50 Subjective No events. Appears slightly more awake today. Objective Vitals Vital Signs Date Temp Pulse Resp B/P (MAP) Pulse Ox O2 O2 Flow FiO2 Time Delivery Rate 05/24/18 100 08:00 05/24/18 98.7 23 132/68 100 Mechanical 08:00 (89) Ventilator 05/24/18 30 05:21 Intake and Output 05/23/18 05/23/18 05/24/18 1414:59 22:59 06:59 IntakeIntake Total 594 ml 660.0 ml 795.5 ml OutputOutput Total 390 ml 4130 ml 800 ml BalanceBalance 204 ml -3470.0 ml -4.5 ml Exam HEENT: Neck supple; no JVD; no LAD; + ET tube CVS: RRR, S1 and S2 CHEST: Coarse rhonchi b/l ABD: Obese, soft, NT, + BS EXT: No c/c; ++ edema NEURO: sedated on the vent. Results/Medications Result Diagram: 05/24/18 0400 05/24/18 0400 Results 24 hrs Laboratory Tests Test 05/24/18 04:00 05/24/18 05:00 White Blood Count 9.6 # Red Blood Count 3.10 #L Hemoglobin 9.8 #L Hematocrit 31.3 #L Mean Corpuscular Volume 101.0 Mean Corpuscular Hemoglobin 31.6 Mean Corpuscular Hemoglobin Concent 31.3 L Red Cell Distribution Width 19.9 H Platelet Count 257 # Mean Platelet Volume 10.8 H Immature Granulocytes % 0.700 H Neutrophils % 76.9 Lymphocytes % 11.1 L Monocytes % 9.0 Eosinophils % 1.6 Basophils % 0.7 Nucleated Red Blood Cells % 0.0 Immature Granulocytes # 0.070 H Neutrophils # 7.4 Lymphocytes # 1.1 Monocytes # 0.9 Eosinophils # 0.2 Basophils # 0.1 Nucleated Red Blood Cells # 0.0 Sodium Level 144 Potassium Level 3.6 Chloride Level 108 Carbon Dioxide Level 28 Anion Gap 8 Blood Urea Nitrogen 37 #H Creatinine 1.66 H Est Glomerular Filtrat Rate mL/min Glucose Level 75 Calcium Level 8.6 Blood Gas Specimen Source Blood arterial Arterial Blood Date Drawn 05/24/2018 4:30:54 AM Arterial Blood pH (Temp corrected) 7.467 H Arterial Blood pCO2 (Temp correct) 39.1 Arterial Blood pO2 (Temp corrected) 82.9 Arterial Blood HCO3 27.6 H Arterial Blood Base Excess 3.8 H Arterial Blood Oxygen Saturation 96.2 Steven Test ACCEPTAB Arterial Blood Gas Puncture Site Right Radial Arterial Blood Carboxyhemoglobin 1.1 Arterial Blood Methemoglobin 0.1 Blood Gas A-a O2 Differential 85.1 H Oxyhemoglobin Percent 95.0 Blood Gas Temperature 37.0 Blood Gas Respiration Rate 20.0 Blood Gas Actual Respiration Rate 26 Blood Gas Modality VENT - AC FiO2 30.0 Blood Gas Tidal Volume 500.0 Blood Gas Low PEEP Setting 5.0 Blood Gas Notified Whom MA Blood Gas Notified Time 05/24/2018 5:00:37 AM Home Meds Reported Medications Zinc Sulfate* (Zinc Sulfate*) 220 Mg Tablet, 220 MG GTB DAILY, TAB START DATE 05/04/18, END DATE 06/03/18 05/06/18 Diclofenac Sodium* (Voltaren* Gel) 1% -100 Gm Gel, 2 GM TOP TID, #1 TUB 05/06/18 Ascorbic Acid (Vitamin C) 500 Mg Tab, 500 MG GTB DAILY, TAB 05/06/18 Quetiapine Fumarate* (Seroquel*) 100 Mg Tablet, 600 MG GTB HS, #30 TAB 05/06/18 Protein Supplement (Promod) 946 Ml Liquid, 30 ML GTB BID 05/06/18 Epoetin Zen (Procrit) 20,000 Unit/1 Ml Vial, 13189 UNIT IJ Q TUE for FOR ANEMIA OF CKD, VIAL HOLD IFHGB IS EQUAL OR GREATER THAN 11 05/06/18 Ondansetron Hcl* (Ondansetron Hcl* Liq) 4 Mg/5 Ml Solution, 4 MG GTB Q6H PRN for NAUSEA AND/OR VOMITING, ML 05/06/18 Multivitamin with Minerals (Multivitamins with Minerals) 1 Each Tablet, 1 EACH GTB QAM, TAB 05/06/18 Metoprolol Tartrate* (Lopressor*) 25 Mg Tab, 25 MG GTB BID, #60 TAB HOLD FOR SBP<110 OR HR<60 05/06/18 Lorazepam* (Ativan* Intensol) 2 Mg/Ml Soln, 0.5 MG IV* Q6H PRN for ANXIETY, #1 BOTTLE START DATE 04/02/18, END DATE 06/01/18 05/06/18 Lidocaine (Lidocaine) 1 Each Adh..patch, 1 EACH TP Q12H 5% 05/06/18 Ipratropium-Albuterol (Ipratropium-Albuterol) 0.5-3 Mg/3 Ml Ampul.neb, 3 ML INHALATION Q6 PRN for BRONCHOSPASM, #30 VIAL 05/06/18 Ipratropium-Albuterol (Ipratropium-Albuterol) 0.5-3 Mg/3 Ml Ampul.neb, 3 ML INHALATION Q2H PRN for BRONCHOSPASM, #30 VIAL 05/06/18 Famotidine* (Famotidine*) 20 Mg Tablet, 20 MG GTB BID, #60 TAB 05/06/18 Valproic Acid* (Depakene*) 250 Mg/5 Ml Udc Syrup, 100 MG GTB QHS, ML 05/06/18 Clonidine Hcl* (Clonidine Hcl*) 0.1 Mg Tab, 0.1 MG GTB Q6 PRN for NEEDED, TAB FOR SBP>160 OR DBP>90 05/06/18 Aspirin* (Aspirin* Chew) 81 Mg Tab.chew, 81 MG GTB DAILY, TAB.CHEW 05/06/18 Medications Current Medications IV Flush (NS 10 ml) 10 ml PRN IV ; Start 05/06/18 at 20:30 Ascorbic Acid (Vitamin C) 500 mg DAILY GTB Last administered on 05/24/18at 08:46; Admin Dose 500 MG; Start 05/07/18 at 09:00 Albuterol/ Ipratropium (Duoneb) 3 ml Q2H RESP THERAPY PRN HHN SHORTNESS OF BREATH; Start 05/06/18 at 23:30 Zinc Sulfate (Zinc Sulfate) 220 mg DAILY GTB Last administered on 05/24/18at 08:45; Admin Dose 220 MG; Start 05/07/18 at 09:00 Ondansetron HCl (Zofran Tab) 4 mg Q6H PRN GTB NAUSEA AND/OR VOMITING; Start 05/07/18 at 00:15 Multivitamins (Multivitamin) 30 ml DAILY GTB Last administered on 05/24/18 08:45; Admin Dose 30 ML; Start 05/07/18 at 09:00 Norepinephrine 250 ml @ 1.875 mls/ hr TITRATE IV Last administered on 05/08/18 13:33; Admin Dose 33.75 MLS/HR; Start 05/08/18 at 03:00 Citric Acid/ Sodium Citrate (Bicitra) 30 ml Q8 PO Last administered on 05/24/18 06:07; Admin Dose 30 ML; Start 05/09/18 at 08:00 Phenylephrine HCl 80 mg/Dextrose 250 ml @ 18.75 mls/ hr TITRATE IV Last administered on 05/15/18 01:50; Admin Dose 5.63 MLS/HR; Start 05/09/18 at 12:30 Miscellaneous Information (Pending Santyl Order For Wound Care) This patient goldman... PRN PRN XX WOUND CARE; Start 05/09/18 at 17:00 Vancomycin HCl (Vancomycin Oral Syringe) 250 mg Q6 PO Last administered on 05/24/18 06:07; Admin Dose 250 MG; Start 05/12/18 at 00:00 Metronidazole 100 ml @ 100 mls/hr Q8 IVPB Last administered on 05/24/18 06:08; Admin Dose 100 MLS/HR; Start 05/11/18 at 20:00 Collagenase (Santyl) 1 applic DAILY TOP Last administered on 05/24/18 08:47; Admin Dose 1 APPLIC; Start 05/13/18 at 09:00 Propofol 100 ml @ 2.64 mls/hr Q12H IV Last administered on 05/21/18 07:19; Admin Dose 18.48 MLS/HR; Start 05/12/18 at 18:30 Albuterol (Ventolin Hfa) 4 puff Q6H RESP THERAPY INH Last administered on 05/24/18 08:28; Admin Dose 4 PUFF; Start 05/12/18 at 20:00 Ipratropium [place] (Atrovent Hfa) 4 puff Q6H RESP THERAPY INH Last administered on 05/24/18 08:28; Admin Dose 4 PUFF; Start 05/12/18 at 20:00 Cholestyramine Resin (Questran Light) 4 gm BID PO Last administered on 05/24/18 08:46; Admin Dose 4 GM; Start 05/14/18 at 21:00 Heparin Sodium (Porcine) (Heparin (1000 Units/ml)) 2,800 unit AFTER DIALYSIS CATHETER Last administered on 05/23/18 22:55; Admin Dose 2,800 UNIT; Start 05/16/18 at 16:30 Furosemide (Lasix) 40 mg BID DIURETICS IV Last administered on 05/24/18 06:07; Admin Dose 40 MG; Start 05/19/18 at 09:00 Epoetin Zen-epbx (RETACRIT(esrd)) 20,000 unit Tu@1700 SC Last administered on 05/19/18 18:23; Admin Dose 20,000 UNIT; Start 05/19/18 at 17:00 Spironolactone (Aldactone) 50 mg DAILY GTB Last administered on 05/24/18 08:46; Admin Dose 50 MG; Start 05/21/18 at 09:00 Midazolam HCl 50 ml @ 1 mls/hr TITRATE IV Last administered on 05/24/18 03:13; Admin Dose 2 MLS/HR; Start 05/21/18 at 10:30 Amiodarone HCl (Cordarone) 200 mg TID PO Last administered on 05/24/18 08:46; Admin Dose 200 MG; Start 05/21/18 at 14:30 Metolazone (Zaroxolyn) 5 mg DAILY@0600 PO Last administered on 05/24/18 06:07; Admin Dose 5 MG; Start 05/22/18 at 09:00 Metoprolol Tartrate (Lopressor) 50 mg Q8 GTB Last administered on 05/24/18 06:07; Admin Dose 50 MG; Start 05/22/18 at 14:00 Famotidine (Pepcid) 20 mg DAILY PEG Last administered on 05/24/18 08:46; Admin Dose 20 MG; Start 05/23/18 at 09:00 Morphine Sulfate (morphine) 6 mg Q4H PRN PEG SEVERE PAIN LEVEL 7-10; Start 05/22/18 at 17:00 Assessment/Plan Assessment/Plan (Daily) IMP: 1. Septic shock likely secondary to recent UTI now C. difficile colitis, possible healthcare associated pneumonia also 2. Acute Renal Failure--likely non-oliguric ATN 3. Resolved metabolic acidosis 4. Encephalopathy--toxic-metabolic 2/2 infection and ARF, in addition to baseline 5. Anemia--r/o acute GIB 6. H/O abdominal abscess 7. Acute hypoxemic respiratory failure secondary to above, continue mechanical ventilation 8. Atrial fibrillation RECS: 1. I had a long discussion with Ms. Mcwilliams's sister who was very clear in explaining that he sister did not want to be on any form of life support and that transition to comfort measures would be most in line with her previously expressed wishes. Unfortunately, it appears that her son, Johnson, is struggling with this concept and needs to understand that what her mother is enduring is against her expressed wishes. 2. Continue mechanical ventilation for now 3. Abx as per ID 4. Continue tube feeding as tolerated 5. Aspiration precautions pulmonary toilet 6. Monitor H&H post transfusion 7. Continue goals of care discussion with family Critical care time 40 minutes. SALENA IRAHETA MD May 24, 2018 10:54
--- NOTE | 2018-05-24 11:42 | PN ---
Date/Time of Note Date/Time of Note DATE: 05/24/18 TIME: 11:42 Assessment/Plan VTE Prophylaxis Risk score (from [facility])>0 risk: 10 SCD applied (from [facility]): No SCD contraindicated: other Pharmacological prophylaxis: LMWH Lines/Catheters IV Catheter Type (from [facility]): Juan Urinary Cath still in place: Yes Reason Cath still needed: skin wounds contaminated by urine Assessment/Plan Hospital Course 1. Nonoliguric acute kidney injury on top of chronic kidney disease with previous baseline creatinine around 2 to 2.5 mg/dL. Etiology of NATHAN is se condary to acute tubular necrosis due to shock, sepsis. The patient was initiated on hemodialysis for solute clearance volume removal. The patient has shown signs of renal recovery. Continue to hold hemodialysis. Continue to monitor renal function closely. Otherwise, continue current treatment plan, supportive care, renally dose all meds. 2. Volume overload secondary to acute kidney injury, chronic kidney disease, decompensated heart failure. The patient has grossly anasarca. Continue ag gressive diuretic therapy, continue Lasix. 3. Metolazone, monitor electrolytes, renal function closely. 4. Hypokalemia and hypomagnesemia. Continue to monitor and replete. 5. Anemia. Monitor hemoglobin and hematocrit levels. 6. Mineral bone disorder. Monitor calcium and phosphorus levels. 7. Hypernatremia. Will increase free water flushes to 300 mL q.4 hours. Continue to monitor serial sodium levels. 8. Ventilator dependent respiratory failure. Vent settings and ABG was reviewed. Continue to monitor. Follow up with pulmonary. 9. Sepsis, status post shock secondary to urinary tract infection and pneumonia. Patient is completing antibiotic course. 10. Tachyarrhythmia. Continue current medical management. Follow up with cardiology. 11. Dysphagia, status post G-tube feeding. 12. Acute encephalopathy, etiology toxic metabolic. Continue to monitor. 13. Lower extremity wounds. Continue wound care. Result Diagram: 05/24/18 0400 05/24/18 0400 Results 24hrs Laboratory Tests Test 05/24/18 04:00 05/24/18 05:00 White Blood Count 9.6 # Red Blood Count 3.10 #L Hemoglobin 9.8 #L Hematocrit 31.3 #L Mean Corpuscular Volume 101.0 Mean Corpuscular Hemoglobin 31.6 Mean Corpuscular Hemoglobin Concent 31.3 L Red Cell Distribution Width 19.9 H Platelet Count 257 # Mean Platelet Volume 10.8 H Immature Granulocytes % 0.700 H Neutrophils % 76.9 Lymphocytes % 11.1 L Monocytes % 9.0 Eosinophils % 1.6 Basophils % 0.7 Nucleated Red Blood Cells % 0.0 Immature Granulocytes # 0.070 H Neutrophils # 7.4 Lymphocytes # 1.1 Monocytes # 0.9 Eosinophils # 0.2 Basophils # 0.1 Nucleated Red Blood Cells # 0.0 Sodium Level 144 Potassium Level 3.6 Chloride Level 108 Carbon Dioxide Level 28 Anion Gap 8 Blood Urea Nitrogen 37 #H Creatinine 1.66 H Est Glomerular Filtrat Rate mL/min Glucose Level 75 Calcium Level 8.6 Blood Gas Specimen Source Blood arterial Arterial Blood Date Drawn 05/24/2018 4:30:54 AM Arterial Blood pH (Temp corrected) 7.467 H Arterial Blood pCO2 (Temp correct) 39.1 Arterial Blood pO2 (Temp corrected) 82.9 Arterial Blood HCO3 27.6 H Arterial Blood Base Excess 3.8 H Arterial Blood Oxygen Saturation 96.2 Steven Test ACCEPTAB Arterial Blood Gas Puncture Site Right Radial Arterial Blood Carboxyhemoglobin 1.1 Arterial Blood Methemoglobin 0.1 Blood Gas A-a O2 Differential 85.1 H Oxyhemoglobin Percent 95.0 Blood Gas Temperature 37.0 Blood Gas Respiration Rate 20.0 Blood Gas Actual Respiration Rate 26 Blood Gas Modality VENT - AC FiO2 30.0 Blood Gas Tidal Volume 500.0 Blood Gas Low PEEP Setting 5.0 Blood Gas Notified Whom MA Blood Gas Notified Time 05/24/2018 5:00:37 AM Subjective 24 Hr Interval Summary Free Text/Dictation Patient is sedated, on vent. Exam/Review of Systems Exam Vitals Vital Signs Date Temp Pulse Resp B/P (MAP) Pulse Ox O2 O2 Flow FiO2 Time Delivery Rate 05/24/18 100 08:00 05/24/18 98.7 23 132/68 100 Mechanical 08:00 (89) Ventilator 05/24/18 30 08:00 Intake and Output 05/23/18 05/23/18 05/24/18 1515:00 23:00 07:00 IntakeIntake Total 595.5 ml 660.5 ml 758.5 ml OutputOutput Total 390 ml 4180 ml 700 ml BalanceBalance 205.5 ml -3519.5 ml 58.5 ml Constitutional: well developed Head: normocephalic, atraumatic Neck: supple Respiratory: diminished breath sounds Cardiovascular: regular rate and rhythm Gastrointestinal: soft, non-tender Extremities: normal pulses Results Results 24hrs Laboratory Tests Test 05/24/18 04:00 05/24/18 05:00 White Blood Count 9.6 # Red Blood Count 3.10 #L Hemoglobin 9.8 #L Hematocrit 31.3 #L Mean Corpuscular Volume 101.0 Mean Corpuscular Hemoglobin 31.6 Mean Corpuscular Hemoglobin Concent 31.3 L Red Cell Distribution Width 19.9 H Platelet Count 257 # Mean Platelet Volume 10.8 H Immature Granulocytes % 0.700 H Neutrophils % 76.9 Lymphocytes % 11.1 L Monocytes % 9.0 Eosinophils % 1.6 Basophils % 0.7 Nucleated Red Blood Cells % 0.0 Immature Granulocytes # 0.070 H Neutrophils # 7.4 Lymphocytes # 1.1 Monocytes # 0.9 Eosinophils # 0.2 Basophils # 0.1 Nucleated Red Blood Cells # 0.0 Sodium Level 144 Potassium Level 3.6 Chloride Level 108 Carbon Dioxide Level 28 Anion Gap 8 Blood Urea Nitrogen 37 #H Creatinine 1.66 H Est Glomerular Filtrat Rate mL/min Glucose Level 75 Calcium Level 8.6 Blood Gas Specimen Source Blood arterial Arterial Blood Date Drawn 05/24/2018 4:30:54 AM Arterial Blood pH (Temp corrected) 7.467 H Arterial Blood pCO2 (Temp correct) 39.1 Arterial Blood pO2 (Temp corrected) 82.9 Arterial Blood HCO3 27.6 H Arterial Blood Base Excess 3.8 H Arterial Blood Oxygen Saturation 96.2 Steven Test ACCEPTAB Arterial Blood Gas Puncture Site Right Radial Arterial Blood Carboxyhemoglobin 1.1 Arterial Blood Methemoglobin 0.1 Blood Gas A-a O2 Differential 85.1 H Oxyhemoglobin Percent 95.0 Blood Gas Temperature 37.0 Blood Gas Respiration Rate 20.0 Blood Gas Actual Respiration Rate 26 Blood Gas Modality VENT - AC FiO2 30.0 Blood Gas Tidal Volume 500.0 Blood Gas Low PEEP Setting 5.0 Blood Gas Notified Whom MA Blood Gas Notified Time 05/24/2018 5:00:37 AM Medications Medication Current Medications IV Flush (NS 10 ml) 10 ml PRN IV ; Start 05/06/18 at 20:30 Ascorbic Acid (Vitamin C) 500 mg DAILY GTB Last administered on 05/24/18 08:46; Admin Dose 500 MG; Start 05/07/18 at 09:00 Albuterol/ Ipratropium (Duoneb) 3 ml Q2H RESP THERAPY PRN HHN SHORTNESS OF BREATH; Start 05/06/18 at 23:30 Zinc Sulfate (Zinc Sulfate) 220 mg DAILY GTB Last administered on 05/24/18 08 :45; Admin Dose 220 MG; Start 05/07/18 at 09:00 Ondansetron HCl (Zofran Tab) 4 mg Q6H PRN GTB NAUSEA AND/OR VOMITING; Start 05/07/18 at 00:15 Multivitamins (Multivitamin) 30 ml DAILY GTB Last administered on 05/24/18 08:45; Admin Dose 30 ML; Start 05/07/18 at 09:00 Norepinephrine 250 ml @ 1.875 mls/ hr TITRATE IV Last administered on 05/08/18 13:33; Admin Dose 33.75 MLS/HR; Start 05/08/18 at 03:00 Citric Acid/ Sodium Citrate (Bicitra) 30 ml Q8 PO Last administered on 05/24/18 06:07; Admin Dose 30 ML; Start 05/09/18 at 08:00 Phenylephrine HCl 80 mg/Dextrose 250 ml @ 18.75 mls/ hr TITRATE IV Last administered on 05/15/18 01:50; Admin Dose 5.63 MLS/HR; Start 05/09/18 at 12:30 Miscellaneous Information (Pending Santyl Order For Wound Care) This patient goldman... PRN PRN XX WOUND CARE; Start 05/09/18 at 17:00 Vancomycin HCl (Vancomycin Oral Syringe) 250 mg Q6 PO Last administered on 06:07; Admin Dose 250 MG; Start 05/12/18 at 00:00 Metronidazole 100 ml @ 100 mls/hr Q8 IVPB Last administered on 05/24/18 06:08; Admin Dose 100 MLS/HR; Start 05/11/18 at 20:00 Collagenase (Santyl) 1 applic DAILY TOP Last administered on 05/24/18 08:47; Admin Dose 1 APPLIC; Start 05/13/18 at 09:00 Propofol 100 ml @ 2.64 mls/hr Q12H IV Last administered on 05/21/18 07:19; Admin Dose 18.48 MLS/HR; Start 05/12/18 at 18:30 Albuterol (Ventolin Hfa) 4 puff Q6H RESP THERAPY INH Last administered on 05/24/18 08:28; Admin Dose 4 PUFF; Start 05/12/18 at 20:00 Ipratropium [place] (Atrovent Hfa) 4 puff Q6H RESP THERAPY INH Last administered on 05/24/18 08:28; Admin Dose 4 PUFF; Start 05/12/18 at 20:00 Cholestyramine Resin (Questran Light) 4 gm BID PO Last administered on 05/24/18 08:46; Admin Dose 4 GM; Start 05/14/18 at 21:00 Heparin Sodium (Porcine) (Heparin (1000 Units/ml)) 2,800 unit AFTER DIALYSIS CATHETER Last administered on 05/23/18 22:55; Admin Dose 2,800 UNIT; Start at 16:30 Furosemide (Lasix) 40 mg BID DIURETICS IV Last administered on 05/24/18 06:07; Admin Dose 40 MG; Start 05/19/18 at 09:00 Epoetin Zen-epbx (RETACRIT(esrd)) 20,000 unit Tu@1700 SC Last administered on 05/19/18 18:23; Admin Dose 20,000 UNIT; Start 05/19/18 at 17:00 Spironolactone (Aldactone) 50 mg DAILY GTB Last administered on 05/24/18 08:46; Admin Dose 50 MG; Start 05/21/18 at 09:00 Midazolam HCl 50 ml @ 1 mls/hr TITRATE IV Last administered on 05/24/18 03:13; Admin Dose 2 MLS/HR; Start 05/21/18 at 10:30 Amiodarone HCl (Cordarone) 200 mg TID PO Last administered on 05/24/18 08:46; Admin Dose 200 MG; Start 05/21/18 at 14:30 Metolazone (Zaroxolyn) 5 mg DAILY@0600 PO Last administered on 05/24/18 06:07; Admin Dose 5 MG; Start 05/22/18 at 09:00 Metoprolol Tartrate (Lopressor) 50 mg Q8 GTB Last administered on 4/7/19at 06:07; Admin Dose 50 MG; Start 05/22/18 at 14:00 Famotidine (Pepcid) 20 mg DAILY PEG Last administered on 05/24/18at 08:46; Admin Dose 20 MG; Start 05/23/18 at 09:00 Morphine Sulfate (morphine) 6 mg Q4H PRN PEG SEVERE PAIN LEVEL 7-10; Start 05/22/18 at 17:00 STEPHANIE BAL May 24, 2018 11:42
--- NOTE | 2018-05-24 11:49 | CONS ---
Assessment/Plan Assessment/Plan Assessment/Plan (Daily) 1. Nonoliguric acute kidney injury on top of chronic kidney disease with previous baseline creatinine around 2 to 2.5 mg/dL. Etiology of NATHAN is secondary to acute tubular necrosis due to shock, sepsis. The patient was initiated on hemodialysis for solute clearance volume removal. HOLD HD as rosetta ent has signs of renal recovery with increasing urine output. Continue to monitor renal function closely. Otherwise, continue current treatment plan, supportive care, renally dose all meds. 2. Volume overload secondary to acute kidney injury, chronic kidney disease, decompensated heart failure. The patient has grossly anasarca. Continue aggressive diuretic therapy, continue Lasix. 3. Anemia. acute drop. s/p prbc 4. Mineral bone disorder. Monitor calcium and phosphorus levels. 5. Hypernatremia. cont free water flushes to 300 mL q.4 hours. improving. Continue to monitor serial sodium levels. 6. Ventilator dependent respiratory failure. Vent settings and ABG was reviewed. Continue to monitor. Follow up with pulmonary. 7. Sepsis, status post shock secondary to urinary tract infection and pneumonia. Patient is completing antibiotic course. 8. Tachyarrhythmia. Continue current medical management. Follow up with cardiology. 9. Dysphagia, status post G-tube feeding. 10. Acute encephalopathy, etiology toxic metabolic. Continue to monitor. 11. Lower extremity wounds. Continue wound care. Consultation Date/Type/Reason Admit Date/Time May 06, 2018 at 17:38 Initial Consult Date 05/10/18 Requesting Provider: ROLAND GIRON MD Date/Time of Note DATE: 05/24/18 TIME: 11:46 24 HR Interval Summary Free Text/Dictation s/p HD yesterday (unclear who wrote the order) increasing urine output s/p prbc remains intubated d/w rn PE gen nad cv rrr pulm coarse bs abd soft, nd, nt +bs ext: no edema Exam/Review of Systems Exam Vitals Vital Signs Date Temp Pulse Resp B/P (MAP) Pulse Ox O2 O2 Flow FiO2 Time Delivery Rate 05/24/18 99 23 98 27 11:20 05/24/18 98.7 132/68 Mechanical 08:00 (89) Ventilator Intake and Output 05/23/18 05/23/18 05/24/18 1515:00 23:00 07:00 IntakeIntake Total 595.5 ml 660.5 ml 758.5 ml OutputOutput Total 390 ml 4180 ml 700 ml BalanceBalance 205.5 ml -3519.5 ml 58.5 ml Results Result Diagram: 05/24/18 0400 05/24/18 0400 Results 24hrs Laboratory Tests Test 05/24/18 04:00 05/24/18 05:00 White Blood Count 9.6 # Red Blood Count 3.10 #L Hemoglobin 9.8 #L Hematocrit 31.3 #L Mean Corpuscular Volume 101.0 Mean Corpuscular Hemoglobin 31.6 Mean Corpuscular Hemoglobin Concent 31.3 L Red Cell Distribution Width 19.9 H Platelet Count 257 # Mean Platelet Volume 10.8 H Immature Granulocytes % 0.700 H Neutrophils % 76.9 Lymphocytes % 11.1 L Monocytes % 9.0 Eosinophils % 1.6 Basophils % 0.7 Nucleated Red Blood Cells % 0.0 Immature Granulocytes # 0.070 H Neutrophils # 7.4 Lymphocytes # 1.1 Monocytes # 0.9 Eosinophils # 0.2 Basophils # 0.1 Nucleated Red Blood Cells # 0.0 Sodium Level 144 Potassium Level 3.6 Chloride Level 108 Carbon Dioxide Level 28 Anion Gap 8 Blood Urea Nitrogen 37 #H Creatinine 1.66 H Est Glomerular Filtrat Rate mL/min Glucose Level 75 Calcium Level 8.6 Blood Gas Specimen Source Blood arterial Arterial Blood Date Drawn 05/24/2018 4:30:54 AM Arterial Blood pH (Temp corrected) 7.467 H Arterial Blood pCO2 (Temp correct) 39.1 Arterial Blood pO2 (Temp corrected) 82.9 Arterial Blood HCO3 27.6 H Arterial Blood Base Excess 3.8 H Arterial Blood Oxygen Saturation 96.2 Steven Test ACCEPTAB Arterial Blood Gas Puncture Site Right Radial Arterial Blood Carboxyhemoglobin 1.1 Arterial Blood Methemoglobin 0.1 Blood Gas A-a O2 Differential 85.1 H Oxyhemoglobin Percent 95.0 Blood Gas Temperature 37.0 Blood Gas Respiration Rate 20.0 Blood Gas Actual Respiration Rate 26 Blood Gas Modality VENT - AC FiO2 30.0 Blood Gas Tidal Volume 500.0 Blood Gas Low PEEP Setting 5.0 Blood Gas Notified Whom MA Blood Gas Notified Time 05/24/2018 5:00:37 AM Medications Medication Current Medications IV Flush (NS 10 ml) 10 ml PRN IV ; Start 05/06/18 at 20:30 Ascorbic Acid (Vitamin C) 500 mg DAILY GTB Last administered on 05/24/18 08:46; Admin Dose 500 MG; Start 05/07/18 at 09:00 Albuterol/ Ipratropium (Duoneb) 3 ml Q2H RESP THERAPY PRN HHN SHORTNESS OF BREATH; Start 05/06/18 at 23:30 Zinc Sulfate (Zinc Sulfate) 220 mg DAILY GTB Last administered on 05/24/18 08:45; Admin Dose 220 MG; Start 05/07/18 at 09:00 Ondansetron HCl (Zofran Tab) 4 mg Q6H PRN GTB NAUSEA AND/OR VOMITING; Start 05/07/18 at 00:15 Multivitamins (Multivitamin) 30 ml DAILY GTB Last administered on 05/24/18 08:45; Admin Dose 30 ML; Start 05/07/18 at 09:00 Norepinephrine 250 ml @ 1.875 mls/ hr TITRATE IV Last administered on 05/08/18 13:33; Admin Dose 33.75 MLS/HR; Start 05/08/18 at 03:00 Citric Acid/ Sodium Citrate (Bicitra) 30 ml Q8 PO Last administered on 05/24/18 06:07; Admin Dose 30 ML; Start 05/09/18 at 08:00 Phenylephrine HCl 80 mg/Dextrose 250 ml @ 18.75 mls/ hr TITRATE IV Last administered on 05/15/18 01:50; Admin Dose 5.63 MLS/HR; Start 05/09/18 at 12:30 Miscellaneous Information (Pending Santyl Order For Wound Care) This patient goldman... PRN PRN XX WOUND CARE; Start 05/09/18 at 17:00 Vancomycin HCl (Vancomycin Oral Syringe) 250 mg Q6 PO Last administered on 05/24/18 06:07; Admin Dose 250 MG; Start 05/12/18 at 00:00 Metronidazole 100 ml @ 100 mls/hr Q8 IVPB Last administered on 05/24/18 06:08; Admin Dose 100 MLS/HR; Start 05/11/18 at 20:00 Collagenase (Santyl) 1 applic DAILY TOP Last administered on 05/24/18 08:47; Admin Dose 1 APPLIC; Start 05/13/18 at 09:00 Propofol 100 ml @ 2.64 mls/hr Q12H IV Last administered on 05/21/18 07:19; Admin Dose 18.48 MLS/HR; Start 05/12/18 at 18:30 Albuterol (Ventolin Hfa) 4 puff Q6H RESP THERAPY INH Last administered on 05/24/18 08:28; Admin Dose 4 PUFF; Start 05/12/18 at 20:00 Ipratropium [place] (Atrovent Hfa) 4 puff Q6H RESP THERAPY INH Last administered on 05/24/18 08:28; Admin Dose 4 PUFF; Start 05/12/18 at 20:00 Cholestyramine Resin (Questran Light) 4 gm BID PO Last administered on 05/24/18 08:46; Admin Dose 4 GM; Start 05/14/18 at 21:00 Heparin Sodium (Porcine) (Heparin (1000 Units/ml)) 2,800 unit AFTER DIALYSIS CATHETER Last administered on 05/23/18 22:55; Admin Dose 2,800 UNIT; Start 05/16/18 at 16:30 Furosemide (Lasix) 40 mg BID DIURETICS IV Last administered on 05/24/18 06:07; Admin Dose 40 MG; Start 05/19/18 at 09:00 Epoetin Zen-epbx (RETACRIT(esrd)) 20,000 unit Tu@1700 SC Last administered on 05/19/18 18:23; Admin Dose 20,000 UNIT; Start 05/19/18 at 17:00 Spironolactone (Aldactone) 50 mg DAILY GTB Last administered on 05/24/18 08:46; Admin Dose 50 MG; Start 05/21/18 at 09:00 Midazolam HCl 50 ml @ 1 mls/hr TITRATE IV Last administered on 05/24/18 03:13; Admin Dose 2 MLS/HR; Start 05/21/18 at 10:30 Amiodarone HCl (Cordarone) 200 mg TID PO Last administered on 05/24/18 08:46; Admin Dose 200 MG; Start 05/21/18 at 14:30 Metolazone (Zaroxolyn) 5 mg DAILY@0600 PO Last administered on 05/24/18 06:07; Admin Dose 5 MG; Start 4/5/19 at 09:00 Metoprolol Tartrate (Lopressor) 50 mg Q8 GTB Last administered on 05/24/18at 06:07; Admin Dose 50 MG; Start 05/22/18 at 14:00 Famotidine (Pepcid) 20 mg DAILY PEG Last administered on 05/24/18at 08:46; Admin Dose 20 MG; Start 05/23/18 at 09:00 Morphine Sulfate (morphine) 6 mg Q4H PRN PEG SEVERE PAIN LEVEL 7-10; Start 05/22/18 at 17:00 ALIZE FLORES MD May 24, 2018 11:49
--- NOTE | 2018-05-24 13:41 | CONS ---
Assessment/Plan Assessment/Plan Assessment/Plan (Daily) Assessment/Plan Assessment/Plan Assessment/Plan (Daily) Propofol gtt 1. Malfunctioning gastrostomy tube. -resolved 2. Renal failure.- on HD 3. Sepsis. -with mx organisms at trach site wound 4. Chronic obstructive pulmonary disease. 5. Bipolar. 6. Paroxysmal atrial fibrillation. 7. Anemia of chronic disease. No further bleeding noted, hematocrit is stable 8. CHF 9. Elevated alk phos with h/o hepatic venous congestion seen on abd CT in 2018 -resolved 10. Respiratory failure 11. Diarrhea improving with questran 12. UTI with mx organisms 13. H/O deep esophageal ulcer accident 14 mild GI bleeding 15 C. difficile colitis 16. Bilateral pedal edema PLAN: Monitor residuals q 4 hours Continue pepcid and questran and vanco PO Will complete the course of vancomycin and then taper the dose slowly to prevent the recurrence Monitor for acute GI bleeding Consultation Date/Type/Reason Admit Date/Time May 06, 2018 at 17:38 Initial Consult Date 05/10/18 Requesting Provider: ROLAND GIRON MD Date/Time of Note DATE: 05/24/18 TIME: 13:40 24 HR Interval Summary Free Text/Dictation No further bleeding noted. Diarrhea Exam/Review of Systems Exam Vitals Vital Signs Date Temp Pulse Resp B/P (MAP) Pulse Ox O2 O2 Flow FiO2 Time Delivery Rate 05/24/18 91 12:00 05/24/18 23 98 27 11:20 05/24/18 133/66 11:00 (88) 05/24/18 98.7 Mechanical 08:00 Ventilator Intake and Output 05/23/18 05/23/18 05/24/18 1515:00 23:00 07:00 IntakeIntake Total 595.5 ml 660.5 ml 760.5 ml OutputOutput Total 390 ml 4180 ml 700 ml BalanceBalance 205.5 ml -3519.5 ml 60.5 ml ENMT: intubated Cardiovascular: regular rate and rhythm, nl pulses Musculoskeletal: nl extremities to inspection, nl gait and stance Results Result Diagram: 05/24/18 0400 05/24/18 0400 Results 24hrs Laboratory Tests Test 05/24/18 04:00 05/24/18 05:00 White Blood Count 9.6 # Red Blood Count 3.10 #L Hemoglobin 9.8 #L Hematocrit 31.3 #L Mean Corpuscular Volume 101.0 Mean Corpuscular Hemoglobin 31.6 Mean Corpuscular Hemoglobin Concent 31.3 L Red Cell Distribution Width 19.9 H Platelet Count 257 # Mean Platelet Volume 10.8 H Immature Granulocytes % 0.700 H Neutrophils % 76.9 Lymphocytes % 11.1 L Monocytes % 9.0 Eosinophils % 1.6 Basophils % 0.7 Nucleated Red Blood Cells % 0.0 Immature Granulocytes # 0.070 H Neutrophils # 7.4 Lymphocytes # 1.1 Monocytes # 0.9 Eosinophils # 0.2 Basophils # 0.1 Nucleated Red Blood Cells # 0.0 Sodium Level 144 Potassium Level 3.6 Chloride Level 108 Carbon Dioxide Level 28 Anion Gap 8 Blood Urea Nitrogen 37 #H Creatinine 1.66 H Est Glomerular Filtrat Rate mL/min Glucose Level 75 Calcium Level 8.6 Blood Gas Specimen Source Blood arterial Arterial Blood Date Drawn 05/24/2018 4:30:54 AM Arterial Blood pH (Temp corrected) 7.467 H Arterial Blood pCO2 (Temp correct) 39.1 Arterial Blood pO2 (Temp corrected) 82.9 Arterial Blood HCO3 27.6 H Arterial Blood Base Excess 3.8 H Arterial Blood Oxygen Saturation 96.2 Steven Test ACCEPTAB Arterial Blood Gas Puncture Site Right Radial Arterial Blood Carboxyhemoglobin 1.1 Arterial Blood Methemoglobin 0.1 Blood Gas A-a O2 Differential 85.1 H Oxyhemoglobin Percent 95.0 Blood Gas Temperature 37.0 Blood Gas Respiration Rate 20.0 Blood Gas Actual Respiration Rate 26 Blood Gas Modality VENT - AC FiO2 30.0 Blood Gas Tidal Volume 500.0 Blood Gas Low PEEP Setting 5.0 Blood Gas Notified Whom MA Blood Gas Notified Time 05/24/2018 5:00:37 AM Medications Medication Current Medications IV Flush (NS 10 ml) 10 ml PRN IV ; Start 05/06/18 at 20:30 Ascorbic Acid (Vitamin C) 500 mg DAILY GTB Last administered on 05/24/18at 08:46; Admin Dose 500 MG; Start 05/07/18 at 09:00 Albuterol/ Ipratropium (Duoneb) 3 ml Q2H RESP THERAPY PRN HHN SHORTNESS OF BREATH; Start 05/06/18 at 23:30 Zinc Sulfate (Zinc Sulfate) 220 mg DAILY GTB Last administered on 05/24/18at 08:45; Admin Dose 220 MG; Start 05/07/18 at 09:00 Ondansetron HCl (Zofran Tab) 4 mg Q6H PRN GTB NAUSEA AND/OR VOMITING; Start 05/07/18 at 00:15 Multivitamins (Multivitamin) 30 ml DAILY GTB Last administered on 05/24/18 08:45; Admin Dose 30 ML; Start 05/07/18 at 09:00 Norepinephrine 250 ml @ 1.875 mls/ hr TITRATE IV Last administered on 05/08/18 13:33; Admin Dose 33.75 MLS/HR; Start 05/08/18 at 03:00 Citric Acid/ Sodium Citrate (Bicitra) 30 ml Q8 PO Last administered on 05/24/18 06:07; Admin Dose 30 ML; Start 05/09/18 at 08:00 Phenylephrine HCl 80 mg/Dextrose 250 ml @ 18.75 mls/ hr TITRATE IV Last administered on 05/15/18 01:50; Admin Dose 5.63 MLS/HR; Start 05/09/18 at 12:30 Miscellaneous Information (Pending Santyl Order For Wound Care) This patient goldman... PRN PRN XX WOUND CARE; Start 05/09/18 at 17:00 Vancomycin HCl (Vancomycin Oral Syringe) 250 mg Q6 PO Last administered on 05/24/18 06:07; Admin Dose 250 MG; Start 05/12/18 at 00:00 Metronidazole 100 ml @ 100 mls/hr Q8 IVPB Last administered on 05/24/18 06:08; Admin Dose 100 MLS/HR; Start 05/11/18 at 20:00 Collagenase (Santyl) 1 applic DAILY TOP Last administered on 05/24/18 08:47; Admin Dose 1 APPLIC; Start 05/13/18 at 09:00 Propofol 100 ml @ 2.64 mls/hr Q12H IV Last administered on 05/21/18 07:19; Admin Dose 18.48 MLS/HR; Start 05/12/18 at 18:30 Albuterol (Ventolin Hfa) 4 puff Q6H RESP THERAPY INH Last administered on 05/24/18 08:28; Admin Dose 4 PUFF; Start 05/12/18 at 20:00 Ipratropium [place] (Atrovent Hfa) 4 puff Q6H RESP THERAPY INH Last administered on 05/24/18 08:28; Admin Dose 4 PUFF; Start 05/12/18 at 20:00 Cholestyramine Resin (Questran Light) 4 gm BID PO Last administered on 05/24/18 08:46; Admin Dose 4 GM; Start 05/14/18 at 21:00 Heparin Sodium (Porcine) (Heparin (1000 Units/ml)) 2,800 unit AFTER DIALYSIS CATHETER Last administered on 05/23/18 22:55; Admin Dose 2,800 UNIT; Start 05/16/18 at 16:30 Furosemide (Lasix) 40 mg BID DIURETICS IV Last administered on 05/24/18 06:07; Admin Dose 40 MG; Start 05/19/18 at 09:00 Epoetin Zen-epbx (RETACRIT(esrd)) 20,000 unit Tu@1700 SC Last administered on 05/19/18 18:23; Admin Dose 20,000 UNIT; Start 05/19/18 at 17:00 Spironolactone (Aldactone) 50 mg DAILY GTB Last administered on 05/24/18 08:46; Admin Dose 50 MG; Start 05/21/18 at 09:00 Midazolam HCl 50 ml @ 1 mls/hr TITRATE IV Last administered on 05/24/18 03:13; Admin Dose 2 MLS/HR; Start 05/21/18 at 10:30 Amiodarone HCl (Cordarone) 200 mg TID PO Last administered on 05/24/18 08:46; Admin Dose 200 MG; Start 05/21/18 at 14:30 Metolazone (Zaroxolyn) 5 mg DAILY@0600 PO Last administered on 05/24/18 06:07; Admin Dose 5 MG; Start 05/22/18 at 09:00 Metoprolol Tartrate (Lopressor) 50 mg Q8 GTB Last administered on 05/24/18 06:07; Admin Dose 50 MG; Start 05/22/18 at 14:00 Famotidine (Pepcid) 20 mg DAILY PEG Last administered on 05/24/18 08:46; Admin Dose 20 MG; Start 05/23/18 at 09:00 Morphine Sulfate (morphine) 6 mg Q4H PRN PEG SEVERE PAIN LEVEL 7-10; Start 05/22/18 at 17:00 QUINTEN UMAÑA MD May 24, 2018 13:41
--- NOTE | 2018-05-24 13:47 | CONS ---
Assessment/Plan Assessment/Plan Hospital Course (Demo Recall) Septic as well as hemorrhagic shock Hypotension, off IV pressor and improving Acute respiratory failure status post intubation Acute blood loss anemia Septic shock and hemorrhagic shock Parox Atrial fibrillation History of respiratory failure status post decannulation Preserved ejection fraction echocardiogram 05/10/2018 Paroxysmal atrial fibrillation, currently sinus rhythm Acute kidney injury -Patient with paroxysmal atrial fibrillation, continue p.o. amiodarone, titrate beta-tin as tolerated -Vent management as per pulmonary -Fluid management and electrolytes as per renal -Antibiotics as per infectious disease Consultation Date/Type/Reason Admit Date/Time May 06, 2018 at 17:38 Initial Consult Date 05/10/18 Type of Consult Cardiology Requesting Provider: ROLAND GIRON MD Date/Time of Note DATE: 05/24/18 TIME: 13:46 24 HR Interval Summary Free Text/Dictation Patient seen and examined. Subjective hx not possible: pt critical status Exam/Review of Systems Vital Signs Vitals Vital Signs Date Temp Pulse Resp B/P (MAP) Pulse Ox O2 O2 Flow FiO2 Time Delivery Rate 05/24/18 91 12:00 05/24/18 23 98 27 11:20 05/24/18 133/66 11:00 (88) 05/24/18 98.7 Mechanical 08:00 Ventilator Intake and Output 05/23/18 05/23/18 05/24/18 1515:00 23:00 07:00 IntakeIntake Total 595.5 ml 660.5 ml 760.5 ml OutputOutput Total 390 ml 4180 ml 700 ml BalanceBalance 205.5 ml -3519.5 ml 60.5 ml Exam Exam Sedated, no apparent distress, intubated Head: normocephalic Respiratory: other (Coarse breath sounds bilaterally, no wheezing) Cardiovascular: regular rate and rhythm (With occasional irregularities, S1-S2 heard) Gastrointestinal: soft, non-tender, bowel sounds Extremities: edema Labs Result Diagram: 05/24/18 0400 05/24/18 0400 Results 24hrs Laboratory Tests Test 05/24/18 04:00 05/24/18 05:00 White Blood Count 9.6 # Red Blood Count 3.10 #L Hemoglobin 9.8 #L Hematocrit 31.3 #L Mean Corpuscular Volume 101.0 Mean Corpuscular Hemoglobin 31.6 Mean Corpuscular Hemoglobin Concent 31.3 L Red Cell Distribution Width 19.9 H Platelet Count 257 # Mean Platelet Volume 10.8 H Immature Granulocytes % 0.700 H Neutrophils % 76.9 Lymphocytes % 11.1 L Monocytes % 9.0 Eosinophils % 1.6 Basophils % 0.7 Nucleated Red Blood Cells % 0.0 Immature Granulocytes # 0.070 H Neutrophils # 7.4 Lymphocytes # 1.1 Monocytes # 0.9 Eosinophils # 0.2 Basophils # 0.1 Nucleated Red Blood Cells # 0.0 Sodium Level 144 Potassium Level 3.6 Chloride Level 108 Carbon Dioxide Level 28 Anion Gap 8 Blood Urea Nitrogen 37 #H Creatinine 1.66 H Est Glomerular Filtrat Rate mL/min Glucose Level 75 Calcium Level 8.6 Blood Gas Specimen Source Blood arterial Arterial Blood Date Drawn 05/24/2018 4:30:54 AM Arterial Blood pH (Temp corrected) 7.467 H Arterial Blood pCO2 (Temp correct) 39.1 Arterial Blood pO2 (Temp corrected) 82.9 Arterial Blood HCO3 27.6 H Arterial Blood Base Excess 3.8 H Arterial Blood Oxygen Saturation 96.2 Steven Test ACCEPTAB Arterial Blood Gas Puncture Site Right Radial Arterial Blood Carboxyhemoglobin 1.1 Arterial Blood Methemoglobin 0.1 Blood Gas A-a O2 Differential 85.1 H Oxyhemoglobin Percent 95.0 Blood Gas Temperature 37.0 Blood Gas Respiration Rate 20.0 Blood Gas Actual Respiration Rate 26 Blood Gas Modality VENT - AC FiO2 30.0 Blood Gas Tidal Volume 500.0 Blood Gas Low PEEP Setting 5.0 Blood Gas Notified Whom MA Blood Gas Notified Time 05/24/2018 5:00:37 AM Medications Medications Current Medications IV Flush (NS 10 ml) 10 ml PRN IV ; Start 05/06/18 at 20:30 Ascorbic Acid (Vitamin C) 500 mg DAILY GTB Last administered on 05/24/18at 08:46; Admin Dose 500 MG; Start 05/07/18 at 09:00 Albuterol/ Ipratropium (Duoneb) 3 ml Q2H RESP THERAPY PRN HHN SHORTNESS OF BREATH; Start 05/06/18 at 23:30 Zinc Sulfate (Zinc Sulfate) 220 mg DAILY GTB Last administered on 05/24/18at 08:45; Admin Dose 220 MG; Start 05/07/18 at 09:00 Ondansetron HCl (Zofran Tab) 4 mg Q6H PRN GTB NAUSEA AND/OR VOMITING; Start 05/07/18 at 00:15 Multivitamins (Multivitamin) 30 ml DAILY GTB Last administered on 05/24/18 08:45; Admin Dose 30 ML; Start 05/07/18 at 09:00 Norepinephrine 250 ml @ 1.875 mls/ hr TITRATE IV Last administered on 05/08/18 13:33; Admin Dose 33.75 MLS/HR; Start 05/08/18 at 03:00 Citric Acid/ Sodium Citrate (Bicitra) 30 ml Q8 PO Last administered on 05/24/18 06:07; Admin Dose 30 ML; Start 05/09/18 at 08:00 Phenylephrine HCl 80 mg/Dextrose 250 ml @ 18.75 mls/ hr TITRATE IV Last administered on 05/15/18 01:50; Admin Dose 5.63 MLS/HR; Start 05/09/18 at 12:30 Miscellaneous Information (Pending Santyl Order For Wound Care) This patient goldman... PRN PRN XX WOUND CARE; Start 05/09/18 at 17:00 Vancomycin HCl (Vancomycin Oral Syringe) 250 mg Q6 PO Last administered on 05/24/18 06:07; Admin Dose 250 MG; Start 05/12/18 at 00:00 Metronidazole 100 ml @ 100 mls/hr Q8 IVPB Last administered on 05/24/18 06:08; Admin Dose 100 MLS/HR; Start 05/11/18 at 20:00 Collagenase (Santyl) 1 applic DAILY TOP Last administered on 05/24/18 08:47; Admin Dose 1 APPLIC; Start 05/13/18 at 09:00 Propofol 100 ml @ 2.64 mls/hr Q12H IV Last administered on 05/21/18 07:19; Admin Dose 18.48 MLS/HR; Start 05/12/18 at 18:30 Albuterol (Ventolin Hfa) 4 puff Q6H RESP THERAPY INH Last administered on 05/24/18 08:28; Admin Dose 4 PUFF; Start 05/12/18 at 20:00 Ipratropium [place] (Atrovent Hfa) 4 puff Q6H RESP THERAPY INH Last administered on 05/24/18 08:28; Admin Dose 4 PUFF; Start 05/12/18 at 20:00 Cholestyramine Resin (Questran Light) 4 gm BID PO Last administered on 05/24/18 08:46; Admin Dose 4 GM; Start 05/14/18 at 21:00 Heparin Sodium (Porcine) (Heparin (1000 Units/ml)) 2,800 unit AFTER DIALYSIS CATHETER Last administered on 05/23/18 22:55; Admin Dose 2,800 UNIT; Start 05/16/18 at 16:30 Furosemide (Lasix) 40 mg BID DIURETICS IV Last administered on 05/24/18 06:07; Admin Dose 40 MG; Start 05/19/18 at 09:00 Epoetin Zen-epbx (RETACRIT(esrd)) 20,000 unit Tu@1700 SC Last administered on 05/19/18 18:23; Admin Dose 20,000 UNIT; Start 05/19/18 at 17:00 Spironolactone (Aldactone) 50 mg DAILY GTB Last administered on 05/24/18 08:46; Admin Dose 50 MG; Start 05/21/18 at 09:00 Midazolam HCl 50 ml @ 1 mls/hr TITRATE IV Last administered on 05/24/18 03:13; Admin Dose 2 MLS/HR; Start 05/21/18 at 10:30 Amiodarone HCl (Cordarone) 200 mg TID PO Last administered on 05/24/18 08:46; Admin Dose 200 MG; Start 05/21/18 at 14:30 Metolazone (Zaroxolyn) 5 mg DAILY@0600 PO Last administered on 05/24/18 06:07; Admin Dose 5 MG; Start 05/22/18 at 09:00 Metoprolol Tartrate (Lopressor) 50 mg Q8 GTB Last administered on 05/24/18 06:07; Admin Dose 50 MG; Start 05/22/18 at 14:00 Famotidine (Pepcid) 20 mg DAILY PEG Last administered on 05/24/18 08:46; Admin Dose 20 MG; Start 05/23/18 at 09:00 Morphine Sulfate (morphine) 6 mg Q4H PRN PEG SEVERE PAIN LEVEL 7-10; Start 05/22/18 at 17:00 Evangelista Scanlon DO May 24, 2018 13:47
--- NOTE | 2018-05-24 15:58 | CONS ---
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 colonization of the airway by pseudomonas and ESBL+klebsiella - h/o possible, recurrent HCAP due to pseudomonas and ESBL+klebsiella - h/o recurrent HCAP due to MRSA and Enterobacter (culture of tracheal aspirate on 07/16/2017 that was collected at [facility]) . Pt took vancomycin and ceftazidime - h/o decannulation prior to admission - h/o tracheostomy on 06/11/2017 - h/o SIRS from UGIB in 2017 - h/o thoracentesis on 07/18/2017, transudative (protein <2, LDH 279) - h/o bleeding from the trach site in 2017 - h/o septic shock due to pneumonia, ARDS, bacteremia, fungemia in 2018 - h/o ARDS in 2018 - h/o smoking - COPD - h/o ILD per medical record - h/o PAF, improved # GI - C diff colitis, diagnosed on 05/11/2018 - h/o intermittent diarrhea, Pt had multiple negative C. diff tests at [facility] at OSH in the past; none was positive until 05/11/2018 - dysphagia - h/o PEG placement 06/13/2018 - protein calorie malnutrition - h/o coffee ground emesis/UGIB on 12/23/2017 due to deep ulceration of distal esophagus and gastritis on EGD 12/26/2017. No e/o H. pylori - h/o possible appendicitis on CT on 11/22/2017, Pt took ertapenem (11/24/2017- 12/01/2017) - h/o extensive adhesions lower abdominal and pelvis between small bowel to each other and to colon and to abdominal wall, anterior pelvic wall chronic abscess secondary to probably an old perforated diverticulitis, torsion of small bowel around these dense adhesion causing multiple obstructive points - h/o laparoscopic exploration and extensive lysis of adhesions and drainage of anterior pelvic wall abscess 09/16/2017. Cultures were negative, no e/o malignancy. Pt took pip/tazo (09/16/2017-09/26/2017) - h/o EGD and exchange of PEG on 09/01/2017 - h/o partial obstruction mid jejunum in L anterior central pelvis with suggestion of a 3 cm soft tissue mass on CT 08/28/2017 - h/o internal stomal deep ulcer behind the internal bumper, gastritis and esophagitis, Rodriguez's cannot be ruled out, per EGD with biopsy 07/23/2017 - h/o GIB s/p flex sig showed polyp; stool OB negative on 06/29/17 - h/o stool OB positive status - h/o SBO and ileus due to pain meds - h/o mildly elevated CEA # renal/ - anasarca - started on HD on 05/15/2018, via Kem in R groin - recurrent NATHAN on CKD - 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 Her strain of CRE was sensitive to colistin, Avycaz, and Vabomere but resistant to Zerbaxa (reported on 05/19/2018) - Hyponatremia - Hyperkalemia, now hypokalemia - Metabolic acidosis - adrenal insufficiency - h/o vaginal bleed in 2018 - h/o colonization of urinary tract by ESBL+klebsiella, VRE - h/o recurrent, symptomatic UTI due to carbapenem-resistant kleb (MDR strain) per urine culture 10/04/17, 10/09/17, 10/21/2017, P took colistin (10/09/2017-10/15), fosfomycin for carbapenemase-producing klebsiella and VRE on 10/25/2017 and 10/28/2017 - h/o funguria - h/o urinary retention # fungemia, bacteremia 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 improved. Probable manifestation of endocarditis. Pt declined MRI on 08/06/2017 - h/o infection of R toes due to pseudomonas. coagulase negative Staph likely a colonizer - h/o intertrigo of the groin, resolved with nystatin powder - h/o scabies, locally crusted lesion over L scapula, s/p permethrin cream and pGT ivermectin on 08/11/2017, 08/12/2017, 08/19/2017. Repeat skin scraping on 08/21/2017 was negative for scabies # psych, neuro - acute toxic metabolic encephalopathy - decreased hearing b/l - h/o critical illness polyneuropathy - anxiety/depression, bipolar d/o, seen by Psychiatry in the past - chronic pain syndrome - h/o medical non-compliance: she would refuse her medications, treatment and straight catheterization in 2018 # hematological, vascular - chronic anemia requiring blood transfusion intermittently - Macrocytic anemia - 3.1 cm AAA on imaging - PVD recommendations: - continue pGT vancomycin (05/11/2018-) and IV metronidazole (05/11/2018-) for C diff colitis. Pt completed meropenem for HCAP (05/13/2018-05/19/2018) management d/w Pt's JAYANT Wilkins the critical care time I took to care for this Pt today was from 1515 to 1545 Consultation Date/Type/Reason Admit Date/Time May 06, 2018 at 17:38 Initial Consult Date 05/10/18 Type of Consult ID Requesting Provider: ROLAND GIRON MD Date/Time of Note DATE: 05/24/18 TIME: 15:51 24 HR Interval Summary Subjective hx not possible: pt non-verbal, pt critical, pt critical status, other (on Versed) Exam/Review of Systems Exam Vitals Vital Signs Date Temp Pulse Resp B/P (MAP) Pulse Ox O2 O2 Flow FiO2 Time Delivery Rate 05/24/18 97 26 116/62 97 15:00 (80) 05/24/18 98.2 Mechanical 12:00 Ventilator 05/24/18 27 11:20 Intake and Output 05/23/18 05/23/18 05/24/18 1515:00 23:00 07:00 IntakeIntake Total 595.5 ml 660.5 ml 795.5 ml OutputOutput Total 390 ml 4180 ml 765 ml BalanceBalance 205.5 ml -3519.5 ml 30.5 ml Constitutional: non-verbal, frail Psych: confusion Head: normocephalic, atraumatic Eyes: nl conjunctiva, nl lids, nl sclera ENMT: nl external ears & nose, nl nasal mucosa & septum, intubated, other (eschar on lower lip) Neck: other (+former trach site is dressed) Respiratory: crackles/rales, wheezing Cardiovascular: regular rate and rhythm, nl pulses, edema Gastrointestinal: soft, non-tender, other (GT); No distended, No tender Genitourinary - Female: other (FC) Extremities: edema, pitting pedal edema Neurological: unresponsive, other (on Versed) Skin: rash or lesions (+scattered eschar on b/l toes), ecchymosis (UEs) Results Result Diagram: 05/24/18 0400 05/24/18 0400 Results 24hrs Laboratory Tests Test 05/24/18 04:00 05/24/18 05:00 White Blood Count 9.6 # Red Blood Count 3.10 #L Hemoglobin 9.8 #L Hematocrit 31.3 #L Mean Corpuscular Volume 101.0 Mean Corpuscular Hemoglobin 31.6 Mean Corpuscular Hemoglobin Concent 31.3 L Red Cell Distribution Width 19.9 H Platelet Count 257 # Mean Platelet Volume 10.8 H Immature Granulocytes % 0.700 H Neutrophils % 76.9 Lymphocytes % 11.1 L Monocytes % 9.0 Eosinophils % 1.6 Basophils % 0.7 Nucleated Red Blood Cells % 0.0 Immature Granulocytes # 0.070 H Neutrophils # 7.4 Lymphocytes # 1.1 Monocytes # 0.9 Eosinophils # 0.2 Basophils # 0.1 Nucleated Red Blood Cells # 0.0 Sodium Level 144 Potassium Level 3.6 Chloride Level 108 Carbon Dioxide Level 28 Anion Gap 8 Blood Urea Nitrogen 37 #H Creatinine 1.66 H Est Glomerular Filtrat Rate mL/min Glucose Level 75 Calcium Level 8.6 Blood Gas Specimen Source Blood arterial Arterial Blood Date Drawn 05/24/2018 4:30:54 AM Arterial Blood pH (Temp corrected) 7.467 H Arterial Blood pCO2 (Temp correct) 39.1 Arterial Blood pO2 (Temp corrected) 82.9 Arterial Blood HCO3 27.6 H Arterial Blood Base Excess 3.8 H Arterial Blood Oxygen Saturation 96.2 Steven Test ACCEPTAB Arterial Blood Gas Puncture Site Right Radial Arterial Blood Carboxyhemoglobin 1.1 Arterial Blood Methemoglobin 0.1 Blood Gas A-a O2 Differential 85.1 H Oxyhemoglobin Percent 95.0 Blood Gas Temperature 37.0 Blood Gas Respiration Rate 20.0 Blood Gas Actual Respiration Rate 26 Blood Gas Modality VENT - AC FiO2 30.0 Blood Gas Tidal Volume 500.0 Blood Gas Low PEEP Setting 5.0 Blood Gas Notified Whom MA Blood Gas Notified Time 05/24/2018 5:00:37 AM Medications Medication Current Medications IV Flush (NS 10 ml) 10 ml PRN IV ; Start 05/06/18 at 20:30 Ascorbic Acid (Vitamin C) 500 mg DAILY GTB Last administered on 05/24/18at 08:46; Admin Dose 500 MG; Start 05/07/18 at 09:00 Albuterol/ Ipratropium (Duoneb) 3 ml Q2H RESP THERAPY PRN HHN SHORTNESS OF BR EATH; Start 05/06/18 at 23:30 Zinc Sulfate (Zinc Sulfate) 220 mg DAILY GTB Last administered on 05/24/18at 08:45; Admin Dose 220 MG; Start 05/07/18 at 09:00 Ondansetron HCl (Zofran Tab) 4 mg Q6H PRN GTB NAUSEA AND/OR VOMITING; Start 05/07/18 at 00:15 Multivitamins (Multivitamin) 30 ml DAILY GTB Last administered on 05/24/18at 08:45; Admin Dose 30 ML; Start 05/07/18 at 09:00 Norepinephrine 250 ml @ 1.875 mls/ hr TITRATE IV Last administered on 05/08/18at 13:33; Admin Dose 33.75 MLS/HR; Start 05/08/18 at 03:00 Citric Acid/ Sodium Citrate (Bicitra) 30 ml Q8 PO Last administered on 05/24/18 13:51; Admin Dose 30 ML; Start 05/09/18 at 08:00 Phenylephrine HCl 80 mg/Dextrose 250 ml @ 18.75 mls/ hr TITRATE IV Last administered on 05/15/18 01:50; Admin Dose 5.63 MLS/HR; Start 05/09/18 at 12:30 Miscellaneous Information (Pending Santyl Order For Wound Care) This patient goldman... PRN PRN XX WOUND CARE; Start 05/09/18 at 17:00 Vancomycin HCl (Vancomycin Oral Syringe) 250 mg Q6 PO Last administered on 05/24/18 13:51; Admin Dose 250 MG; Start 05/12/18 at 00:00 Metronidazole 100 ml @ 100 mls/hr Q8 IVPB Last administered on 05/24/18 13:51; Admin Dose 100 MLS/HR; Start 05/11/18 at 20:00 Collagenase (Santyl) 1 applic DAILY TOP Last administered on 05/24/18 08:47; Admin Dose 1 APPLIC; Start 05/13/18 at 09:00 Propofol 100 ml @ 2.64 mls/hr Q12H IV Last administered on 05/21/18 07:19; Admin Dose 18.48 MLS/HR; Start 05/12/18 at 18:30 Albuterol (Ventolin Hfa) 4 puff Q6H RESP THERAPY INH Last administered on 05/24/18 13:59; Admin Dose 4 PUFF; Start 05/12/18 at 20:00 Ipratropium [place] (Atrovent Hfa) 4 puff Q6H RESP THERAPY INH Last administered on 05/24/18 13:59; Admin Dose 4 PUFF; Start 05/12/18 at 20:00 Cholestyramine Resin (Questran Light) 4 gm BID PO Last administered on 05/24/18 08:46; Admin Dose 4 GM; Start 05/14/18 at 21:00 Heparin Sodium (Porcine) (Heparin (1000 Units/ml)) 2,800 unit AFTER DIALYSIS CATHETER Last administered on 05/23/18 22:55; Admin Dose 2,800 UNIT; Start 05/16/18 at 16:30 Furosemide (Lasix) 40 mg BID DIURETICS IV Last administered on 05/24/18 06:07; Admin Dose 40 MG; Start 05/19/18 at 09:00 Epoetin Zen-epbx (RETACRIT(esrd)) 20,000 unit Tu@1700 SC Last administered on 05/19/18 18:23; Admin Dose 20,000 UNIT; Start 05/19/18 at 17:00 Spironolactone (Aldactone) 50 mg DAILY GTB Last administered on 05/24/18 08:46; Admin Dose 50 MG; Start 05/21/18 at 09:00 Midazolam HCl 50 ml @ 1 mls/hr TITRATE IV Last administered on 05/24/18 03:13; Admin Dose 2 MLS/HR; Start 05/21/18 at 10:30 Amiodarone HCl (Cordarone) 200 mg TID PO Last administered on 05/24/18 13:51; Admin Dose 200 MG; Start 05/21/18 at 14:30 Metolazone (Zaroxolyn) 5 mg DAILY@0600 PO Last administered on 05/24/18 06:07; Admin Dose 5 MG; Start 05/22/18 at 09:00 Metoprolol Tartrate (Lopressor) 50 mg Q8 GTB Last administered on 05/24/18 13:51; Admin Dose 50 MG; Start 05/22/18 at 14:00 Famotidine (Pepcid) 20 mg DAILY PEG Last administered on 05/24/18 08:46; Admin Dose 20 MG; Start 05/23/18 at 09:00 Morphine Sulfate (morphine) 6 mg Q4H PRN PEG SEVERE PAIN LEVEL 7-10; Start 05/22/18 at 17:00 CELESTINE MURPHY M.D. May 24, 2018 15:58
[2018-05-25] VITALS (48 sets, daily range): BP systolic 104–150; BP diastolic 49–82; PULSE 75–92; RESP 18–29
[2018-05-25] MEDS: VANCOMYCIN HCL 250 MG/5ML POSYG PO SCH ×5 (00:06→23:25)
[2018-05-25] MEDS: ALBUTEROL HFA 8 GM INHALER INH SCH ×4 (01:17→22:11)
[2018-05-25] MEDS: IPRATROPIUM (HFA) 12.9 GM INHALER INH SCH ×4 (01:17→22:11)
[2018-05-25] MEDS: PROPOFOL 100 ML IV SCH ×2 (06:30→17:20)
[2018-05-25] MEDS: FUROSEMIDE 40 MG INJ IV SCH ×2 (06:39→20:58)
[2018-05-25] MEDS: METOPROLOL 50 MG TAB GTB SCH ×3 (06:39→21:55)
[2018-05-25] MEDS: METOLAZONE 5 MG TAB PO SCH (06:39)
[2018-05-25] MEDS: CITRIC ACID/NA CITRATE 30 ML CUP PO SCH (06:39)
[2018-05-25] MEDS: metroNIDAZOLE 500 MG/NS (PMX) 100 ML IVPB SCH ×3 (06:40→21:55)
[2018-05-25] MEDS: MIDAZOLAM (DRIP) 50 mg/50 mL 50 ML IV SCH (06:52)
[2018-05-25] MEDS ORDERED: POTASSIUM CHLORIDE (SR) 20 MEQ TAB PO STA (06:57)
--- NOTE | 2018-05-25 07:14 | CONS ---
Assessment/Plan Assessment/Plan Hospital Course (Demo Recall) 73 yo female Interval hx: Tolerating tube feeds at 35cc/hr. No signs of GI bleeding. hgb 9.2. Multiple liquid bm overnight. 1. Malfunctioning gastrostomy tube. -resolved 2. Renal failure.- on HD 3. Sepsis. -with mx organisms at trach site wound 4. Chronic obstructive pulmonary disease. 5. Bipolar. 6. Paroxysmal atrial fibrillation. 7. Anemia of chronic disease. 8. CHF 9. Elevated alk phos with h/o hepatic venous congestion seen on abd CT in 2018 -resolved 10. Respiratory failure 11. Diarrhea improving with questran 12. UTI with mx organisms 13. H/O deep esophageal ulcer PLAN: Monitor residuals q 4 hours Continue vanco PO for full course Increase questran to TID Monitor for signs of GI bleeding Pt examined and plan of care discussed with Dr Carolina Consultation Date/Type/Reason Admit Date/Time May 06, 2018 at 17:38 Initial Consult Date 05/10/18 Requesting Provider: ROLAND GIRON MD Date/Time of Note DATE: 05/25/18 TIME: 07:11 Exam/Review of Systems Exam Vitals Vital Signs Date Temp Pulse Resp B/P (MAP) Pulse Ox O2 O2 Flow FiO2 Time Delivery Rate 05/25/18 89 25 150/59 98 Mechanical 06:00 (89) Ventilator 05/25/18 30 05:19 05/25/18 98.7 04:00 Intake and Output 05/24/18 05/24/18 05/25/18 1515:00 23:00 07:00 IntakeIntake Total 796 ml 596 ml 659 ml OutputOutput Total 520 ml 570 ml 525 ml BalanceBalance 276 ml 26 ml 134 ml Head: normocephalic Eyes: nl sclera, PERRL ENMT: intubated Respiratory: diminished breath sounds Cardiovascular: regular rate and rhythm Gastrointestinal: soft, non-tender, other (g tube site clean and dry) Extremities: edema Neurological: other (on versed gtt but opens eyes to name) Results Result Diagram: 05/25/18 0430 05/25/18 0430 Results 24hrs Laboratory Tests Test 05/25/18 04:30 05/25/18 05:13 White Blood Count 7.9 Red Blood Count 2.90 L Hemoglobin 9.2 L Hematocrit 29.6 L Mean Corpuscular Volume 102.1 H Mean Corpuscular Hemoglobin 31.7 Mean Corpuscular Hemoglobin Concent 31.1 L Red Cell Distribution Width 19.5 H Platelet Count 285 Mean Platelet Volume 10.9 H Immature Granulocytes % 0.600 H Neutrophils % 72.8 Lymphocytes % 14.1 L Monocytes % 9.3 Eosinophils % 2.8 Basophils % 0.4 Nucleated Red Blood Cells % 0.0 Immature Granulocytes # 0.050 H Neutrophils # 5.7 Lymphocytes # 1.1 Monocytes # 0.7 Eosinophils # 0.2 Basophils # 0.0 Nucleated Red Blood Cells # 0.0 Sodium Level 144 Potassium Level 3.1 L Chloride Level 108 Carbon Dioxide Level 28 Anion Gap 8 Blood Urea Nitrogen 39 H Creatinine 2.01 H Est Glomerular Filtrat Rate mL/min Glucose Level 81 Calcium Level 8.6 Lab Scanned Report BLOOD TRANSFUSION Medications Medication Current Medications IV Flush (NS 10 ml) 10 ml PRN IV ; Start 05/06/18 at 20:30 Ascorbic Acid (Vitamin C) 500 mg DAILY GTB Last administered on 05/24/18 08:46; Admin Dose 500 MG; Start 05/07/18 at 09:00 Albuterol/ Ipratropium (Duoneb) 3 ml Q2H RESP THERAPY PRN HHN SHORTNESS OF BREATH; Start 05/06/18 at 23:30 Zinc Sulfate (Zinc Sulfate) 220 mg DAILY GTB Last administered on 05/24/18 08:45; Admin Dose 220 MG; Start 05/07/18 at 09:00 Ondansetron HCl (Zofran Tab) 4 mg Q6H PRN GTB NAUSEA AND/OR VOMITING; Start 05/07/18 at 00:15 Multivitamins (Multivitamin) 30 ml DAILY GTB Last administered on 05/24/18 08:45; Admin Dose 30 ML; Start 05/07/18 at 09:00 Norepinephrine 250 ml @ 1.875 mls/ hr TITRATE IV Last administered on 05/08/18at 13:33; Admin Dose 33.75 MLS/HR; Start 05/08/18 at 03:00 Citric Acid/ Sodium Citrate (Bicitra) 30 ml Q8 PO Last administered on 05/25/18 06:39; Admin Dose 30 ML; Start 05/09/18 at 08:00 Phenylephrine HCl 80 mg/Dextrose 250 ml @ 18.75 mls/ hr TITRATE IV Last administered on 05/15/18 01:50; Admin Dose 5.63 MLS/HR; Start 05/09/18 at 12:30 Miscellaneous Information (Pending Santyl Order For Wound Care) This patient goldman... PRN PRN XX WOUND CARE; Start 05/09/18 at 17:00 Vancomycin HCl (Vancomycin Oral Syringe) 250 mg Q6 PO Last administered on 05/25/18 06:39; Admin Dose 250 MG; Start 05/12/18 at 00:00 Metronidazole 100 ml @ 100 mls/hr Q8 IVPB Last administered on 05/25/18 06:40; Admin Dose 100 MLS/HR; Start 05/11/18 at 20:00 Collagenase (Santyl) 1 applic DAILY TOP Last administered on 05/24/18 08:47; Admin Dose 1 APPLIC; Start 05/13/18 at 09:00 Propofol 100 ml @ 2.64 mls/hr Q12H IV Last administered on 05/21/18 07:19; Admin Dose 18.48 MLS/HR; Start 05/12/18 at 18:30 Albuterol (Ventolin Hfa) 4 puff Q6H RESP THERAPY INH Last administered on 05/25/18 01:17; Admin Dose 4 PUFF; Start 05/12/18 at 20:00 Ipratropium [place] (Atrovent Hfa) 4 puff Q6H RESP THERAPY INH Last administered on 05/25/18 01:17; Admin Dose 4 PUFF; Start 05/12/18 at 20:00 Cholestyramine Resin (Questran Light) 4 gm BID PO Last administered on 05/24/18 23:36; Admin Dose 4 GM; Start 05/14/18 at 21:00 Heparin Sodium (Porcine) (Heparin (1000 Units/ml)) 2,800 unit AFTER DIALYSIS CATHETER Last administered on 05/23/18 22:55; Admin Dose 2,800 UNIT; Start 05/16/18 at 16:30 Furosemide (Lasix) 40 mg BID DIURETICS IV Last administered on 05/25/18 06:39; Admin Dose 40 MG; Start 05/19/18 at 09:00 Epoetin Zen-epbx (RETACRIT(esrd)) 20,000 unit Tu@1700 SC Last administered on 05/19/18 18:23; Admin Dose 20,000 UNIT; Start 05/19/18 at 17:00 Spironolactone (Aldactone) 50 mg DAILY GTB Last administered on 05/24/18 08:46; Admin Dose 50 MG; Start 05/21/18 at 09:00 Midazolam HCl 50 ml @ 1 mls/hr TITRATE IV Last administered on 05/25/18 06:52; Admin Dose 2 MLS/HR; Start 05/21/18 at 10:30 Amiodarone HCl (Cordarone) 200 mg TID PO Last administered on 05/24/18 21:16; Admin Dose 200 MG; Start 05/21/18 at 14:30 Metolazone (Zaroxolyn) 5 mg DAILY@0600 PO Last administered on 05/25/18 06:39; Admin Dose 5 MG; Start 05/22/18 at 09:00 Metoprolol Tartrate (Lopressor) 50 mg Q8 GTB Last administered on 05/25/18 06:39; Admin Dose 50 MG; Start 05/22/18 at 14:00 Famotidine (Pepcid) 20 mg DAILY PEG Last administered on 05/24/18 08:46; Admin Dose 20 MG; Start 05/23/18 at 09:00 Morphine Sulfate (morphine) 6 mg Q4H PRN PEG SEVERE PAIN LEVEL 7-10; Start 05/22/18 at 17:00 SHAHEEN GAMBOA May 25, 2018 07:14
[2018-05-25] MEDS ORDERED: POTASSIUM CHLORIDE 20 MEQ POWDER FOR ORAL SOLN GTB ONE ×2 (08:00→08:30)
--- NOTE | 2018-05-25 08:18 | PN ---
DATE: 05/25/2018 SUBJECTIVE: The patient remains critically ill on full ventilatory support. The patient's urinary o utput has been adequate. No other events noted. No hemoptysis, hematemesis, hematochezia. OBJECTIVE: VITAL SIGNS: Blood pressure is 150/59, respirations 25, pulse 89, temperature 98.7. HEENT: Head is normocephalic. NECK: Supple. HEART: Regular rate. LUNGS: Show diminished breath sounds at the base. ABDOMEN: Soft, nontender to palpation without rebound or guarding. EXTREMITIES: Negative for clubbing, cyanosis. Diffuse anasarca. DERMATOLOGIC: No rashes. MUSCULOSKELETAL: No joint effusion. NEUROLOGIC: No change in exam. MEDICATIONS: The patient's medications have been reviewed. LABORATORY DATA: The laboratory data has been reviewed. IMAGING STUDIES: The imaging studies were reviewed. ASSESSMENT AND PLAN: 1. Nonoliguric acute kidney injury on top of chronic kidney disease with previous baseline creatinin e around 2 to 2.5 mg/dL. Etiology of acute kidney injury is secondary to acute tubular necrosis due to shock, sepsis. The patient has been initiated on hemodialysis for solute clearance and volume rem oval. The patient has been showing increased urinary output, but still remains grossly volume overlo aded. Plan is for dialysis today for clearance and volume removal. Continue to monitor closely. 2. Volume overload secondary to acute kidney injury, chronic kidney disease, decompensated heart cem lure. The patient is grossly volume overloaded. Continue aggressive diuretic therapy. Continue ult rafiltration with hemodialysis. 3. Hypokalemia and hypomagnesemia. Continue to monitor and replete. 4. Anemia. Monitor hemoglobin and hematocrit levels. 5. Mineral bone disorder, monitor calcium and phosphatase levels. 6. Hypernatremia, improved. Continue free water flushes. 7. Ventilator-dependent respiratory failure. Vent settings and ABG reviewed. Continue to monitor. Follow up with pulmonary. 8. Sepsis, status post shock secondary to urinary tract infection and pneumonia. Patient is complet ing antibiotic course. 9. Tachyarrhythmia. Continue medical management. 10. Dysphagia, status post PEG-tube feeding. 11. Acute encephalopathy, etiology is toxic metabolic. 12. Lower extremity wounds. Continue wound care. Dictated By: JEANA FINE/TABATHA Conf#: [id number] [facility]#: [id number] CC: ROLAND GIRON MD; QUINTEN UMAÑA MD;*[facility]*
[2018-05-25] MEDS: AMIODARONE 200 MG TAB PO SCH ×3 (08:39→20:57)
[2018-05-25] MEDS: CHOLESTYRAMINE (LIGHT) 4 GM PACKET PO SCH ×2 (08:39→13:18)
[2018-05-25] MEDS: ZINC SULFATE 220 MG CAP GTB SCH (08:39)
[2018-05-25] MEDS: MULTIVITAMINS 30 ML CUP GTB SCH (08:39)
[2018-05-25] MEDS: ASCORBIC ACID 500 MG TAB GTB SCH (08:39)
[2018-05-25] MEDS: FAMOTIDINE 20 MG TAB PEG SCH (08:39)
[2018-05-25] MEDS: SPIRONOLACTONE 25 MG TAB GTB SCH (08:39)
[2018-05-25] MEDS: BALSAM PERU/CASTOR OIL 60 GM TUBE TOP SCH ×2 (08:40→20:58)
[2018-05-25] MEDS: COLLAGENASE 5 GM (UD JAR) TOP SCH (08:40)
--- NOTE | 2018-05-25 10:04 | CONS ---
Assessment/Plan Assessment/Plan Assessment/Plan (Daily) Ventilator setting; AC of 20, tidal volume 500, PEEP of 5, 30% FiO2. Patient is currently on Versed 2 mg/h. Assessment and recommendations; next 1. Patient with history of prior VDR F status post decannulation of tracheostomy admitted again for bilateral pneumonia with failure to be weaned from ventilator despite multiple times. 2. CHF. 3. Renal failure, hemodialysis dependent. 4. Encephalopathy. 5. Interstitial lung disease. 6. Anemia. 7. History of cardiac arrhythmia. 8. History of hypertension. Continue with supportive care. Patient ideally will need to have a redo tracheostomy. However advanced directives are unclear, I did try to reach out with her son couple of times to no avail. Consultation Date/Type/Reason Admit Date/Time May 06, 2018 at 17:38 Initial Consult Date 05/10/18 Type of Consult Pulmonary/critical care Requesting Provider: ROLAND GIRON MD Date/Time of Note DATE: 05/25/18 TIME: 10:01 24 HR Interval Summary Free Text/Dictation Patient's condition remains critical. General exam; elderly female, orally intubated, sedated, currently no distress. Exam/Review of Systems Exam Vitals Vital Signs Date Temp Pulse Resp B/P (MAP) Pulse Ox O2 O2 Flow FiO2 Time Delivery Rate 05/25/18 87 20 97 30 09:41 05/25/18 99.0 130/65 Mechanical 08:00 (86) Ventilator Intake and Output 05/24/18 05/24/18 05/25/18 1515:00 23:00 07:00 IntakeIntake Total 796 ml 596 ml 661 ml OutputOutput Total 520 ml 570 ml 525 ml BalanceBalance 276 ml 26 ml 136 ml Exam H ENT exam; supple neck, positive JVD. No lymphadenopathy. Midline trachea. No thyromegaly. Orally intubated. Dressing applied over prior tracheostomy site. Patient is edentulous. Chest exam; diminished breath sounds bilaterally. No added sounds. S1-S2 audible, no murmurs. Abdomen exam; soft, G-tube in place. No organomegaly. Bowel sounds audible. Extremity exam; trace edema with multiple ecchymosis. X RAY INSPECTOR exam; patient is sedated. Results Result Diagram: 4/8/19 0430 4/8/19 0430 Results 24hrs Laboratory Tests Test 05/25/18 04:30 05/25/18 05:13 White Blood Count 7.9 Red Blood Count 2.90 L Hemoglobin 9.2 L Hematocrit 29.6 L Mean Corpuscular Volume 102.1 H Mean Corpuscular Hemoglobin 31.7 Mean Corpuscular Hemoglobin Concent 31.1 L Red Cell Distribution Width 19.5 H Platelet Count 285 Mean Platelet Volume 10.9 H Immature Granulocytes % 0.600 H Neutrophils % 72.8 Lymphocytes % 14.1 L Monocytes % 9.3 Eosinophils % 2.8 Basophils % 0.4 Nucleated Red Blood Cells % 0.0 Immature Granulocytes # 0.050 H Neutrophils # 5.7 Lymphocytes # 1.1 Monocytes # 0.7 Eosinophils # 0.2 Basophils # 0.0 Nucleated Red Blood Cells # 0.0 Sodium Level 144 Potassium Level 3.1 L Chloride Level 108 Carbon Dioxide Level 28 Anion Gap 8 Blood Urea Nitrogen 39 H Creatinine 2.01 H Est Glomerular Filtrat Rate mL/min Glucose Level 81 Calcium Level 8.6 Lab Scanned Report BLOOD TRANSFUSION Medications Medication Current Medications IV Flush (NS 10 ml) 10 ml PRN IV ; Start 05/06/18 at 20:30 Ascorbic Acid (Vitamin C) 500 mg DAILY GTB Last administered on 05/25/18at 08:39; Admin Dose 500 MG; Start 05/07/18 at 09:00 Albuterol/ Ipratropium (Duoneb) 3 ml Q2H RESP THERAPY PRN HHN SHORTNESS OF BREATH; Start 05/06/18 at 23:30 Zinc Sulfate (Zinc Sulfate) 220 mg DAILY GTB Last administered on 05/25/18 08:39; Admin Dose 220 MG; Start 05/07/18 at 09:00 Ondansetron HCl (Zofran Tab) 4 mg Q6H PRN GTB NAUSEA AND/OR VOMITING; Start 05/07/18 at 00:15 Multivitamins (Multivitamin) 30 ml DAILY GTB Last administered on 05/25/18 08:39; Admin Dose 30 ML; Start 05/07/18 at 09:00 Norepinephrine 250 ml @ 1.875 mls/ hr TITRATE IV Last administered on 05/08/18at 13:33; Admin Dose 33.75 MLS/HR; Start 05/08/18 at 03:00 Phenylephrine HCl 80 mg/Dextrose 250 ml @ 18.75 mls/ hr TITRATE IV Last administered on 05/15/18 01:50; Admin Dose 5.63 MLS/HR; Start 05/09/18 at 12:30 Miscellaneous Information (Pending Santyl Order For Wound Care) This patient goldman... PRN PRN XX WOUND CARE; Start 05/09/18 at 17:00 Vancomycin HCl (Vancomycin Oral Syringe) 250 mg Q6 PO Last administered on 05/25/18 06:39; Admin Dose 250 MG; Start 05/12/18 at 00:00 Metronidazole 100 ml @ 100 mls/hr Q8 IVPB Last administered on 05/25/18 06:40; Admin Dose 100 MLS/HR; Start 05/11/18 at 20:00 Collagenase (Santyl) 1 applic DAILY TOP Last administered on 05/25/18 08:40; Admin Dose 1 APPLIC; Start 05/13/18 at 09:00 Propofol 100 ml @ 2.64 mls/hr Q12H IV Last administered on 05/21/18 07:19; Admin Dose 18.48 MLS/HR; Start 05/12/18 at 18:30 Albuterol (Ventolin Hfa) 4 puff Q6H RESP THERAPY INH Last administered on 05/25/18 07:21; Admin Dose 4 PUFF; Start 05/12/18 at 20:00 Ipratropium [place] (Atrovent Hfa) 4 puff Q6H RESP THERAPY INH Last administered on 05/25/18 07:21; Admin Dose 4 PUFF; Start 05/12/18 at 20:00 Heparin Sodium (Porcine) (Heparin (1000 Units/ml)) 2,800 unit AFTER DIALYSIS CATHETER Last administered on 05/23/18 22:55; Admin Dose 2,800 UNIT; Start 05/16/18 at 16:30 Furosemide (Lasix) 40 mg BID DIURETICS IV Last administered on 05/25/18 06:39; Admin Dose 40 MG; Start 05/19/18 at 09:00 Epoetin Zen-epbx (RETACRIT(esrd)) 20,000 unit Tu@1700 SC Last administered on 05/19/18 18:23; Admin Dose 20,000 UNIT; Start 05/19/18 at 17:00 Spironolactone (Aldactone) 50 mg DAILY GTB Last administered on 05/25/18 08:39; Admin Dose 50 MG; Start 05/21/18 at 09:00 Midazolam HCl 50 ml @ 1 mls/hr TITRATE IV Last administered on 05/25/18 06:52; Admin Dose 2 MLS/HR; Start 05/21/18 at 10:30 Amiodarone HCl (Cordarone) 200 mg TID PO Last administered on 05/25/18 08:39; Admin Dose 200 MG; Start 05/21/18 at 14:30 Metolazone (Zaroxolyn) 5 mg DAILY@0600 PO Last administered on 05/25/18 06:39; Admin Dose 5 MG; Start 05/22/18 at 09:00 Metoprolol Tartrate (Lopressor) 50 mg Q8 GTB Last administered on 05/25/18 06:39; Admin Dose 50 MG; Start 05/22/18 at 14:00 Famotidine (Pepcid) 20 mg DAILY PEG Last administered on 05/25/18 08:39; Admin Dose 20 MG; Start 05/23/18 at 09:00 Morphine Sulfate (morphine) 6 mg Q4H PRN PEG SEVERE PAIN LEVEL 7-10; Start 05/22/18 at 17:00 Cholestyramine Resin (Questran Light) 4 gm TID PO Last administered on 05/25/18 08:39; Admin Dose 4 GM; Start 05/25/18 at 09:00 ELOISA LAURA May 25, 2018 10:04
--- NOTE | 2018-05-25 10:15 | CONS ---
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 colonization of the airway by pseudomonas and ESBL+klebsiella - h/o possible, recurrent HCAP due to pseudomonas and ESBL+klebsiella - h/o recurrent HCAP due to MRSA and Enterobacter (culture of tracheal aspirate on 07/16/2017 that was collected at [facility]) . Pt took vancomycin and ceftazidime - h/o decannulation prior to admission - h/o tracheostomy on 06/11/2017 - h/o SIRS from UGIB in 2017 - h/o thoracentesis on 07/18/2017, transudative (protein <2, LDH 279) - h/o bleeding from the trach site in 2017 - h/o septic shock due to pneumonia, ARDS, bacteremia, fungemia in 2018 - h/o ARDS in 2018 - h/o smoking - COPD - h/o ILD per medical record - h/o PAF, improved # GI - C diff colitis, diagnosed on 05/11/2018 - h/o intermittent diarrhea, Pt had multiple negative C. diff tests at [facility] at OSH in the past; none was positive until 05/11/2018 - dysphagia - h/o PEG placement 06/13/2018 - protein calorie malnutrition - h/o coffee ground emesis/UGIB on 12/23/2017 due to deep ulceration of distal esophagus and gastritis on EGD 12/26/2017. No e/o H. pylori - h/o possible appendicitis on CT on 11/22/2017, Pt took ertapenem (11/24/2017- 12/01/2017) - h/o extensive adhesions lower abdominal and pelvis between small bowel to each other and to colon and to abdominal wall, anterior pelvic wall chronic abscess secondary to probably an old perforated diverticulitis, torsion of small bowel around these dense adhesion causing multiple obstructive points - h/o laparoscopic exploration and extensive lysis of adhesions and drainage of anterior pelvic wall abscess 09/16/2017. Cultures were negative, no e/o malignancy. Pt took pip/tazo (09/16/2017-09/26/2017) - h/o EGD and exchange of PEG on 09/01/2017 - h/o partial obstruction mid jejunum in L anterior central pelvis with suggestion of a 3 cm soft tissue mass on CT 08/28/2017 - h/o internal stomal deep ulcer behind the internal bumper, gastritis and esophagitis, Rodriguez's cannot be ruled out, per EGD with biopsy 07/23/2017 - h/o GIB s/p flex sig showed polyp; stool OB negative on 06/29/17 - h/o stool OB positive status - h/o SBO and ileus due to pain meds - h/o mildly elevated CEA # renal/ - anasarca - started on HD on 05/15/2018, via Kem in R groin - recurrent NATHAN on CKD - 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 Her strain of CRE was sensitive to colistin, Avycaz, and Vabomere but resistant to Zerbaxa (reported on 05/19/2018) - Hyponatremia - Hyperkalemia, now hypokalemia - Metabolic acidosis - adrenal insufficiency - h/o vaginal bleed in 2018 - h/o colonization of urinary tract by ESBL+klebsiella, VRE - h/o recurrent, symptomatic UTI due to carbapenem-resistant kleb (MDR strain) per urine culture 10/04/17, 10/09/17, 10/21/2017, P took colistin (10/09/2017-10/15), fosfomycin for carbapenemase-producing klebsiella and VRE on 10/25/2017 and 10/28/2017 - h/o funguria - h/o urinary retention # fungemia, bacteremia 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 improved. Probable manifestation of endocarditis. Pt declined MRI on 08/06/2017 - h/o infection of R toes due to pseudomonas. coagulase negative Staph likely a colonizer - h/o intertrigo of the groin, resolved with nystatin powder - h/o scabies, locally crusted lesion over L scapula, s/p permethrin cream and pGT ivermectin on 08/11/2017, 08/12/2017, 08/19/2017. Repeat skin scraping on 08/21/2017 was negative for scabies # psych, neuro - acute toxic metabolic encephalopathy - decreased hearing b/l - h/o critical illness polyneuropathy - anxiety/depression, bipolar d/o, seen by Psychiatry in the past - chronic pain syndrome - h/o medical non-compliance: she would refuse her medications, treatment and straight catheterization in 2018 # hematological, vascular - chronic anemia requiring blood transfusion intermittently - Macrocytic anemia - 3.1 cm AAA on imaging - PVD Recommendations: - continue pGT vancomycin (05/11/2018-) and IV metronidazole (05/11/2018-) for C diff colitis. Pt completed meropenem for HCAP (05/13/2018-05/19/2018) Management d/w Pt's JAYANT Wilkins and with Dr. Doyle. Thank you Total critical care time spent: 35 min. Consultation Date/Type/Reason Admit Date/Time May 06, 2018 at 17:38 Initial Consult Date 05/07/18 Type of Consult ID Requesting Provider: ROLAND GIRON MD Date/Time of Note DATE: 05/25/18 TIME: 10:12 24 HR Interval Summary Free Text/Dictation Per d/w JAYANT Wilkins, patient was desaturating and she suctioned. Still having loose stools. Has remained afebrile. Patient is unable to contribute to ROS d/t intubated, sedated, opened eyes when I called her name. Exam/Review of Systems Exam Vitals Vital Signs Date Temp Pulse Resp B/P (MAP) Pulse Ox O2 O2 Flow FiO2 Time Delivery Rate 05/25/18 87 20 97 30 09:41 05/25/18 99.0 130/65 Mechanical 08:00 (86) Ventilator Intake and Output 05/24/18 05/24/18 05/25/18 1414:59 22:59 06:59 IntakeIntake Total 796 ml 496 ml 796 ml OutputOutput Total 520 ml 560 ml 600 ml BalanceBalance 276 ml -64 ml 196 ml Allergies Coded Allergies shellfish derived (Unverified Allergy, Unknown, 05/06/18) Exam Constitutional: well developed, non-verbal, frail, obese, other (chronically debilitated, orally intubated and sedated on versed) Head: normocephalic, atraumatic Eyes: nl conjunctiva, nl lids ENMT: nl external ears & nose, intubated (via ETT) Neck: other (old trach site with with dressing which is clean dry and intact) Respiratory: diminished breath sounds, wheezing (inspiratory bilaterally L>R), other (on ventilator support, after RN suctioned sats came up to 95% but after I finished assessing she began desaturating again 87%, RN calling RT) Cardiovascular: regular rate and rhythm, nl pulses Gastrointestinal: soft, non-tender, bowel sounds; No distended Genitourinary - Female: other (Garza in place with yellow urine; HD catheter in R groin c/d/i) Musculoskeletal: other (eschar on toes; bilateral foot drop) Extremities: edema (all four extremities) Neurological: other (sedated but opened eyes with verbal and tactile stimuli, +tracking, and falls easily back to sleep; no commands) Skin: nl turgor, dry, other (wounds- nurses notes and photos reviewed in chart) Results Result Diagram: 05/25/18 04305/25/18 0430 Results 24hrs Laboratory Tests Test 05/25/18 04:30 05/25/18 05:13 White Blood Count 7.9 Red Blood Count 2.90 L Hemoglobin 9.2 L Hematocrit 29.6 L Mean Corpuscular Volume 102.1 H Mean Corpuscular Hemoglobin 31.7 Mean Corpuscular Hemoglobin Concent 31.1 L Red Cell Distribution Width 19.5 H Platelet Count 285 Mean Platelet Volume 10.9 H Immature Granulocytes % 0.600 H Neutrophils % 72.8 Lymphocytes % 14.1 L Monocytes % 9.3 Eosinophils % 2.8 Basophils % 0.4 Nucleated Red Blood Cells % 0.0 Immature Granulocytes # 0.050 H Neutrophils # 5.7 Lymphocytes # 1.1 Monocytes # 0.7 Eosinophils # 0.2 Basophils # 0.0 Nucleated Red Blood Cells # 0.0 Sodium Level 144 Potassium Level 3.1 L Chloride Level 108 Carbon Dioxide Level 28 Anion Gap 8 Blood Urea Nitrogen 39 H Creatinine 2.01 H Est Glomerular Filtrat Rate mL/min Glucose Level 81 Calcium Level 8.6 Lab Scanned Report BLOOD TRANSFUSION Imaging Imaging CXR 05/24/18 IMPRESSION: Persistent diffuse bilateral reticular nodular infiltrates. No change. Medications Medication Current Medications IV Flush (NS 10 ml) 10 ml PRN IV ; Start 05/06/18 at 20:30 Ascorbic Acid (Vitamin C) 500 mg DAILY GTB Last administered on 05/25/18 08:39; Admin Dose 500 MG; Start 05/07/18 at 09:00 Albuterol/ Ipratropium (Duoneb) 3 ml Q2H RESP THERAPY PRN HHN SHORTNESS OF BREATH; Start 05/06/18 at 23:30 Zinc Sulfate (Zinc Sulfate) 220 mg DAILY GTB Last administered on 05/25/18 08:39; Admin Dose 220 MG; Start 05/07/18 at 09:00 Ondansetron HCl (Zofran Tab) 4 mg Q6H PRN GTB NAUSEA AND/OR VOMITING; Start 05/07/18 at 00:15 Multivitamins (Multivitamin) 30 ml DAILY GTB Last administered on 05/25/18 08:39; Admin Dose 30 ML; Start 05/07/18 at 09:00 Norepinephrine 250 ml @ 1.875 mls/ hr TITRATE IV Last administered on 05/08/18at 13:33; Admin Dose 33.75 MLS/HR; Start 05/08/18 at 03:00 Phenylephrine HCl 80 mg/Dextrose 250 ml @ 18.75 mls/ hr TITRATE IV Last administered on 05/15/18at 01:50; Admin Dose 5.63 MLS/HR; Start 05/09/18 at 12:30 Miscellaneous Information (Pending Santyl Order For Wound Care) This patient goldman... PRN PRN XX WOUND CARE; Start 05/09/18 at 17:00 Vancomycin HCl (Vancomycin Oral Syringe) 250 mg Q6 PO Last administered on 05/25/18 06:39; Admin Dose 250 MG; Start 05/12/18 at 00:00 Metronidazole 100 ml @ 100 mls/hr Q8 IVPB Last administered on 05/25/18 06:40; Admin Dose 100 MLS/HR; Start 05/11/18 at 20:00 Collagenase (Santyl) 1 applic DAILY TOP Last administered on 05/25/18 08:40; Ad min Dose 1 APPLIC; Start 05/13/18 at 09:00 Propofol 100 ml @ 2.64 mls/hr Q12H IV Last administered on 05/21/18 07:19; Admin Dose 18.48 MLS/HR; Start 05/12/18 at 18:30 Albuterol (Ventolin Hfa) 4 puff Q6H RESP THERAPY INH Last administered on 05/25/18 07:21; Admin Dose 4 PUFF; Start 05/12/18 at 20:00 Ipratropium [place] (Atrovent Hfa) 4 puff Q6H RESP THERAPY INH Last administered on 05/25/18 07:21; Admin Dose 4 PUFF; Start 05/12/18 at 20:00 Heparin Sodium (Porcine) (Heparin (1000 Units/ml)) 2,800 unit AFTER DIALYSIS CATHETER Last administered on 05/23/18 22:55; Admin Dose 2,800 UNIT; Start 05/16/18 at 16:30 Furosemide (Lasix) 40 mg BID DIURETICS IV Last administered on 05/25/18 06:39; Admin Dose 40 MG; Start 05/19/18 at 09:00 Epoetin Zen-epbx (RETACRIT(esrd)) 20,000 unit Tu@1700 SC Last administered on 05/19/18 18:23; Admin Dose 20,000 UNIT; Start 05/19/18 at 17:00 Spironolactone (Aldactone) 50 mg DAILY GTB Last administered on 05/25/18 08:39; Admin Dose 50 MG; Start 05/21/18 at 09:00 Midazolam HCl 50 ml @ 1 mls/hr TITRATE IV Last administered on 05/25/18 06:52; Admin Dose 2 MLS/HR; Start 05/21/18 at 10:30 Amiodarone HCl (Cordarone) 200 mg TID PO Last administered on 05/25/18 08:39; Admin Dose 200 MG; Start 05/21/18 at 14:30 Metolazone (Zaroxolyn) 5 mg DAILY@0600 PO Last administered on 05/25/18 06:39; Admin Dose 5 MG; Start 05/22/18 at 09:00 Metoprolol Tartrate (Lopressor) 50 mg Q8 GTB Last administered on 05/25/18 06:39; Admin Dose 50 MG; Start 05/22/18 at 14:00 Famotidine (Pepcid) 20 mg DAILY PEG Last administered on 05/25/18 08:39; Admin Dose 20 MG; Start 05/23/18 at 09:00 Morphine Sulfate (morphine) 6 mg Q4H PRN PEG SEVERE PAIN LEVEL 7-10; Start 05/22/18 at 17:00 Cholestyramine Resin (Questran Light) 4 gm TID PO Last administered on 05/25/18 08:39; Admin Dose 4 GM; Start 05/25/18 at 09:00 KENA MÉNDEZ NP May 25, 2018 10:14
--- NOTE | 2018-05-25 12:30 | CONS ---
Assessment/Plan Assessment/Plan Hospital Course (Demo Recall) Septic as well as hemorrhagic shock Hypotension, off IV pressor and improving Acute respiratory failure status post intubation Acute blood loss anemia Septic shock and hemorrhagic shock Parox Atrial fibrillation History of respiratory failure status post decannulation Preserved ejection fraction echocardiogram 05/10/2018 Paroxysmal atrial fibrillation, currently sinus rhythm Acute kidney injury -Patient with paroxysmal atrial fibrillation, continue p.o. amiodarone, titrate beta-tin as tolerated -Vent management as per pulmonary -Fluid management and electrolytes as per renal -Antibiotics as per infectious disease Consultation Date/Type/Reason Admit Date/Time May 06, 2018 at 17:38 Initial Consult Date 05/10/18 Type of Consult Cardiology Requesting Provider: ROLAND GIRON MD Date/Time of Note DATE: 05/25/18 TIME: 12:29 24 HR Interval Summary Subjective hx not possible: pt non-verbal, pt critical status Exam/Review of Systems Vital Signs Vitals Vital Signs Date Temp Pulse Resp B/P (MAP) Pulse Ox O2 O2 Flow FiO2 Time Delivery Rate 05/25/18 98.6 86 27 136/70 100 Mechanical 12:00 (92) Ventilator 05/25/18 30 11:42 Intake and Output 05/24/18 05/24/18 05/25/18 1515:00 23:00 07:00 IntakeIntake Total 796 ml 596 ml 661 ml OutputOutput Total 520 ml 570 ml 525 ml BalanceBalance 276 ml 26 ml 136 ml Exam Exam Family bedside, no apparent distress, intubated Head: normocephalic ENMT: intubated Respiratory: other (Coarse breath sounds bilaterally, no wheezing) Cardiovascular: regular rate and rhythm (S1-S2 heard) Gastrointestinal: soft, non-tender, bowel sounds Extremities: edema Labs Result Diagram: 05/25/18 0430 05/25/18 0430 Results 24hrs Laboratory Tests Test 05/25/18 04:30 05/25/18 05:13 White Blood Count 7.9 Red Blood Count 2.90 L Hemoglobin 9.2 L Hematocrit 29.6 L Mean Corpuscular Volume 102.1 H Mean Corpuscular Hemoglobin 31.7 Mean Corpuscular Hemoglobin Concent 31.1 L Red Cell Distribution Width 19.5 H Platelet Count 285 Mean Platelet Volume 10.9 H Immature Granulocytes % 0.600 H Neutrophils % 72.8 Lymphocytes % 14.1 L Monocytes % 9.3 Eosinophils % 2.8 Basophils % 0.4 Nucleated Red Blood Cells % 0.0 Immature Granulocytes # 0.050 H Neutrophils # 5.7 Lymphocytes # 1.1 Monocytes # 0.7 Eosinophils # 0.2 Basophils # 0.0 Nucleated Red Blood Cells # 0.0 Sodium Level 144 Potassium Level 3.1 L Chloride Level 108 Carbon Dioxide Level 28 Anion Gap 8 Blood Urea Nitrogen 39 H Creatinine 2.01 H Est Glomerular Filtrat Rate mL/min Glucose Level 81 Calcium Level 8.6 Lab Scanned Report BLOOD TRANSFUSION Medications Medications Current Medications IV Flush (NS 10 ml) 10 ml PRN IV ; Start 05/06/18 at 20:30 Ascorbic Acid (Vitamin C) 500 mg DAILY GTB Last administered on 05/25/18 08:39; Admin Dose 500 MG; Start 05/07/18 at 09:00 Albuterol/ Ipratropium (Duoneb) 3 ml Q2H RESP THERAPY PRN HHN SHORTNESS OF BREATH; Start 05/06/18 at 23:30 Zinc Sulfate (Zinc Sulfate) 220 mg DAILY GTB Last administered on 05/25/18 08:39; Admin Dose 220 MG; Start 05/07/18 at 09:00 Ondansetron HCl (Zofran Tab) 4 mg Q6H PRN GTB NAUSEA AND/OR VOMITING; Start 05/07/18 at 00:15 Multivitamins (Multivitamin) 30 ml DAILY GTB Last administered on 05/25/18 08:39; Admin Dose 30 ML; Start 05/07/18 at 09:00 Norepinephrine 250 ml @ 1.875 mls/ hr TITRATE IV Last administered on 05/08/18 13:33; Admin Dose 33.75 MLS/HR; Start 05/08/18 at 03:00 Phenylephrine HCl 80 mg/Dextrose 250 ml @ 18.75 mls/ hr TITRATE IV Last administered on 05/15/18 01:50; Admin Dose 5.63 MLS/HR; Start 05/09/18 at 12:30 [facility] This patient goldman... PRN PRN XX WOUND CARE; Start 05/09/18 at 17:00 Vancomycin HCl (Vancomycin Oral Syringe) 250 mg Q6 PO Last administered on 05/25/18 06:39; Admin Dose 250 MG; Start 05/12/18 at 00:00 Metronidazole 100 ml @ 100 mls/hr Q8 IVPB Last administered on 05/25/18 06:40; Admin Dose 100 MLS/HR; Start 05/11/18 at 20:00 Collagenase (Santyl) 1 applic DAILY TOP Last administered on 05/25/18 08:40; Admin Dose 1 APPLIC; Start 05/13/18 at 09:00 Propofol 100 ml @ 2.64 mls/hr Q12H IV Last administered on 05/21/18 07:19; Admin Dose 18.48 MLS/HR; Start 05/12/18 at 18:30 Albuterol (Ventolin Hfa) 4 puff Q6H RESP THERAPY INH Last administered on 05/25/18 07:21; Admin Dose 4 PUFF; Start 05/12/18 at 20:00 Ipratropium [place] (Atrovent Hfa) 4 puff Q6H RESP THERAPY INH Last administered on 05/25/18 07:21; Admin Dose 4 PUFF; Start 05/12/18 at 20:00 Heparin Sodium (Porcine) (Heparin (1000 Units/ml)) 2,800 unit AFTER DIALYSIS CATHETER Last administered on 05/23/18 22:55; Admin Dose 2,800 UNIT; Start 05/16/18 at 16:30 Furosemide (Lasix) 40 mg BID DIURETICS IV Last administered on 05/25/18 06:39; Admin Dose 40 MG; Start 05/19/18 at 09:00 Epoetin Zen-epbx (RETACRIT(esrd)) 20,000 unit Tu@1700 SC Last administered on 05/19/18 18:23; Admin Dose 20,000 UNIT; Start 05/19/18 at 17:00 Spironolactone (Aldactone) 50 mg DAILY GTB Last administered on 05/25/18 08:39; Admin Dose 50 MG; Start 05/21/18 at 09:00 Midazolam HCl 50 ml @ 1 mls/hr TITRATE IV Last administered on 05/25/18 06:52; Admin Dose 2 MLS/HR; Start 05/21/18 at 10:30 Amiodarone HCl (Cordarone) 200 mg TID PO Last administered on 05/25/18 08:39; Admin Dose 200 MG; Start 05/21/18 at 14:30 Metolazone (Zaroxolyn) 5 mg DAILY@0600 PO Last administered on 05/25/18 06:39; Admin Dose 5 MG; Start 05/22/18 at 09:00 Metoprolol Tartrate (Lopressor) 50 mg Q8 GTB Last administered on 05/25/18 06:39; Admin Dose 50 MG; Start 05/22/18 at 14:00 Famotidine (Pepcid) 20 mg DAILY PEG Last administered on 05/25/18 08:39; Admin Dose 20 MG; Start 05/23/18 at 09:00 Morphine Sulfate (morphine) 6 mg Q4H PRN PEG SEVERE PAIN LEVEL 7-10; Start 05/22/18 at 17:00 Cholestyramine Resin (Questran Light) 4 gm TID PO Last administered on 05/25/18 08:39; Admin Dose 4 GM; Start 05/25/18 at 09:00 Evangelista Scanlon DO May 25, 2018 12:30
--- NOTE | 2018-05-25 13:56 | PN ---
Date/Time of Note Date/Time of Note DATE: 05/25/18 TIME: 13:53 Assessment/Plan VTE Prophylaxis Risk score (from Ns)>0 risk: 10 SCD applied (from Ns): Yes Pharmacological prophylaxis: heparin Lines/Catheters IV [facility] Type [facility]from [facility]): Juan Urinary Cath still in place: Yes Reason Cath still needed: urinary retention Assessment/Plan Hospital Course Patient continues on ventilatory support, Versed drip for sedation, G-tube feeding, patient continues to have diarrhea. Assessment/Plan -Atrial fibrillation was rapid ventricular response, s/p amiodarone drip. Rate is well controlled on p.o. amiodarone and metoprolol. Dr. Scanlon is following in cardiology consultation. -Septic shock secondary to urinary tract infection, anterior neck soft tissue infection, and C. difficile colitis, resolving. Continue antibiotics per ID. Dr. Black is following in infection disease consultation. -Acute respiratory failure requiring intubation and ventilatory support. Dr. Lambert is following in pulmonology consultation. -Acute kidney injury on chronic kidney disease. Started on HD this admission. Dr. Mckeon is following in nephrology consultation. -Anemia of chronic inflammation, stool for OB is negative, status post blood transfusion. Continue Epogen. -Metabolic acidosis, resolved. -Acute diastolic congestive heart failure. -Paroxysmal atrial fibrillation -COPD -Dysphagia with PEG. -G-tube mild malfunction, changed by GI Dr. Carolina is following in gastroenterology consultation. -Obesity Critical care time spent is 30 minutes. Further recommendations based on clinical course. Plan of care discussed with Dr. Eisenberg. Result Diagram: 05/25/18 0430 05/25/18 0430 Results 24hrs Laboratory Tests Test 05/25/18 04:30 05/25/18 05:13 White Blood Count 7.9 Red Blood Count 2.90 L Hemoglobin 9.2 L Hematocrit 29.6 L Mean Corpuscular Volume 102.1 H Mean Corpuscular Hemoglobin 31.7 Mean Corpuscular Hemoglobin Concent 31.1 L Red Cell Distribution Width 19.5 H Platelet Count 285 Mean Platelet Volume 10.9 H Immature Granulocytes % 0.600 H Neutrophils % 72.8 Lymphocytes % 14.1 L Monocytes % 9.3 Eosinophils % 2.8 Basophils % 0.4 Nucleated Red Blood Cells % 0.0 Immature Granulocytes # 0.050 H Neutrophils # 5.7 Lymphocytes # 1.1 Monocytes # 0.7 Eosinophils # 0.2 Basophils # 0.0 Nucleated Red Blood Cells # 0.0 Sodium Level 144 Potassium Level 3.1 L Chloride Level 108 Carbon Dioxide Level 28 Anion Gap 8 Blood Urea Nitrogen 39 H Creatinine 2.01 H Est Glomerular Filtrat Rate mL/min Glucose Level 81 Calcium Level 8.6 Lab Scanned Report BLOOD TRANSFUSION Exam/Review of Systems Exam Vitals Vital Signs Date Temp Pulse Resp B/P (MAP) Pulse Ox O2 O2 Flow FiO2 Time Delivery Rate 05/25/18 84 13:06 05/25/18 24 130/65 100 13:00 (86) 05/25/18 98.6 Mechanical 12:00 Ventilator 05/25/18 30 11:42 Intake and Output 05/24/18 05/24/18 05/25/18 1414:59 22:59 06:59 IntakeIntake Total 796 ml 496 ml 796 ml OutputOutput Total 520 ml 560 ml 600 ml BalanceBalance 276 ml -64 ml 196 ml Exam Constitutional: frail, orally intubated Respiratory: diminished breath sounds Cardiovascular: irregular rate and rhythm Gastrointestinal: soft, tender, other (G-tube) Musculoskeletal: nl extremities to inspection Extremities: normal pulses Neurological: sedated Results Results 24hrs Laboratory Tests Test 05/25/18 04:30 05/25/18 05:13 White Blood Count 7.9 Red Blood Count 2.90 L Hemoglobin 9.2 L Hematocrit 29.6 L Mean Corpuscular Volume 102.1 H Mean Corpuscular Hemoglobin 31.7 Mean Corpuscular Hemoglobin Concent 31.1 L Red Cell Distribution Width 19.5 H Platelet Count 285 Mean Platelet Volume 10.9 H Immature Granulocytes % 0.600 H Neutrophils % 72.8 Lymphocytes % 14.1 L Monocytes % 9.3 Eosinophils % 2.8 Basophils % 0.4 Nucleated Red Blood Cells % 0.0 Immature Granulocytes # 0.050 H Neutrophils # 5.7 Lymphocytes # 1.1 Monocytes # 0.7 Eosinophils # 0.2 Basophils # 0.0 Nucleated Red Blood Cells # 0.0 Sodium Level 144 Potassium Level 3.1 L Chloride Level 108 Carbon Dioxide Level 28 Anion Gap 8 Blood Urea Nitrogen 39 H Creatinine 2.01 H Est Glomerular Filtrat Rate mL/min Glucose Level 81 Calcium Level 8.6 Lab Scanned Report BLOOD TRANSFUSION Medications Medication Current Medications IV Flush (NS 10 ml) 10 ml PRN IV ; Start 05/06/18 at 20:30 Ascorbic Acid (Vitamin C) 500 mg DAILY GTB Last administered on 05/25/18 08:39; Admin Dose 500 MG; Start 05/07/18 at 09:00 Albuterol/ Ipratropium (Duoneb) 3 ml Q2H RESP THERAPY PRN HHN SHORTNESS OF BREATH; Start 05/06/18 at 23:30 Zinc Sulfate (Zinc Sulfate) 220 mg DAILY GTB Last administered on 05/25/18 08:39; Admin Dose 220 MG; Start 05/07/18 at 09:00 Ondansetron HCl (Zofran Tab) 4 mg Q6H PRN GTB NAUSEA AND/OR VOMITING; Start 05/07/18 at 00:15 Multivitamins (Multivitamin) 30 ml DAILY GTB Last administered on 05/25/18 08:39; Admin Dose 30 ML; Start 05/07/18 at 09:00 Norepinephrine 250 ml @ 1.875 mls/ hr TITRATE IV Last administered on 05/08/18 13:33; Admin Dose 33.75 MLS/HR; Start 05/08/18 at 03:00 Phenylephrine HCl 80 mg/Dextrose 250 ml @ 18.75 mls/ hr TITRATE IV Last administered on 05/15/18 01:50; Admin Dose 5.63 MLS/HR; Start 05/09/18 at 12:30 Miscellaneous Information (Pending Santyl Order For Wound Care) This patient goldman... PRN PRN XX WOUND CARE; Start 05/09/18 at 17:00 Vancomycin HCl (Vancomycin Oral Syringe) 250 mg Q6 PO Last administered on 05/25/18 13:18; Admin Dose 250 MG; Start 05/12/18 at 00:00 Metronidazole 100 ml @ 100 mls/hr Q8 IVPB Last administered on 05/25/18 13:19; Admin Dose 100 MLS/HR; Start 05/11/18 at 20:00 Collagenase (Santyl) 1 applic DAILY TOP Last administered on 05/25/18 08:40; Admin Dose 1 APPLIC; Start 05/13/18 at 09:00 Propofol 100 ml @ 2.64 mls/hr Q12H IV Last administered on 05/21/18 07:19; Admin Dose 18.48 MLS/HR; Start 05/12/18 at 18:30 Albuterol (Ventolin Hfa) 4 puff Q6H RESP THERAPY INH Last administered on 05/25/18 07:21; Admin Dose 4 PUFF; Start 05/12/18 at 20:00 Ipratropium Roy (Atrovent Hfa) 4 puff Q6H RESP THERAPY INH Last administered on 05/25/18 07:21; Admin Dose 4 PUFF; Start 05/12/18 at 20:00 Heparin Sodium (Porcine) (Heparin (1000 Units/ml)) 2,800 unit AFTER DIALYSIS CATHETER Last administered on 05/23/18 22:55; Admin Dose 2,800 UNIT; Start 05/16/18 at 16:30 Furosemide (Lasix) 40 mg BID DIURETICS IV Last administered on 05/25/18 06:39; Admin Dose 40 MG; Start 05/19/18 at 09:00 Epoetin Zen-epbx (RETACRIT(esrd)) 20,000 unit Tu@1700 SC Last administered on 05/19/18 18:23; Admin Dose 20,000 UNIT; Start 05/19/18 at 17:00 Spironolactone (Aldactone) 50 mg DAILY GTB Last administered on 05/25/18 08:39; Admin Dose 50 MG; Start 05/21/18 at 09:00 Midazolam HCl 50 ml @ 1 mls/hr TITRATE IV Last administered on 05/25/18 06:52; Admin Dose 2 MLS/HR; Start 05/21/18 at 10:30 Amiodarone HCl (Cordarone) 200 mg TID PO Last administered on 05/25/18 13:18; Admin Dose 200 MG; Start 05/21/18 at 14:30 Metolazone (Zaroxolyn) 5 mg DAILY@0600 PO Last administered on 05/25/18 06:39; Admin Dose 5 MG; Start 05/22/18 at 09:00 Metoprolol Tartrate (Lopressor) 50 mg Q8 GTB Last administered on 05/25/18 13:19; Admin Dose 50 MG; Start 05/22/18 at 14:00 Famotidine (Pepcid) 20 mg DAILY PEG Last administered on 4/8/19at 08:39; Admin Dose 20 MG; Start 05/23/18 at 09:00 Morphine Sulfate (morphine) 6 mg Q4H PRN PEG SEVERE PAIN LEVEL 7-10; Start 05/22/18 at 17:00 Cholestyramine Resin (Questran Light) 4 gm TID PO Last administered on 05/25/18at 13:18; Admin Dose 4 GM; Start 05/25/18 at 09:00 GRISELDA DENNIS May 25, 2018 13:56
[2018-05-25] MEDS ORDERED: ALTEPLASE (CATHFLO) 2 MG INJ CATHETER ONE ×2 (18:30)
[2018-05-26] VITALS (39 sets, daily range): BP systolic 95–150; BP diastolic 52–117; PULSE 73–97; RESP 7–32
[2018-05-26] MEDS: CHOLESTYRAMINE (LIGHT) 4 GM PACKET PO SCH ×6 (01:07→20:21)
[2018-05-26] MEDS: IPRATROPIUM (HFA) 12.9 GM INHALER INH SCH ×4 (01:22→19:39)
[2018-05-26] MEDS: ALBUTEROL HFA 8 GM INHALER INH SCH ×4 (01:22→19:39)
[2018-05-26] MEDS: FUROSEMIDE 40 MG INJ IV SCH ×2 (05:36→17:27)
[2018-05-26] MEDS: METOPROLOL 50 MG TAB GTB SCH ×3 (05:36→21:46)
[2018-05-26] MEDS: metroNIDAZOLE 500 MG/NS (PMX) 100 ML IVPB SCH ×3 (05:38→21:46)
[2018-05-26] MEDS: VANCOMYCIN HCL 250 MG/5ML POSYG PO SCH ×3 (05:38→17:27)
[2018-05-26] MEDS: METOLAZONE 5 MG TAB PO SCH (05:53)
[2018-05-26] MEDS: MIDAZOLAM (DRIP) 50 mg/50 mL 50 ML IV SCH (05:57)
[2018-05-26] MEDS: PROPOFOL 100 ML IV SCH ×2 (06:30→17:28)
[2018-05-26] MEDS ORDERED: MAGNESIUM SULFATE 2 GM/50 ML 50 ML IVPB ONE ×2 (08:00)
--- NOTE | 2018-05-26 08:19 | PN ---
DATE: 05/26/2018 SUBJECTIVE: The patient remains critically ill. The patient had hemodialysis yesterday, tolerated w ell. The patient remains markedly volume overloaded. No other acute events noted. OBJECTIVE: VITAL SIGNS: Blood pressure is 135/61, respirations 27, pulse 85, temperature 98.9. HEENT: Head is normocephalic. NECK: Supple. HEART: Regular rate. LUNGS: Show diminished breath sounds at the base. ABDOMEN: Soft, nontender to palpation without rebound or guarding. EXTREMITIES: Negative for clubbing, cyanosis. Positive edema. DERMATOLOGIC: No rashes. MUSCULOSKELETAL: No joint effusion. NEUROLOGIC: No change in exam. MEDICATIONS: Reviewed. LABORATORY DATA: From 05/26/2018 was reviewed. The patient has magnesium 1.6, potassium 3.3. The p atient's chest x-ray and cultures have been reviewed. ASSESSMENT AND PLAN: 1. Nonoliguric acute kidney injury on top of chronic kidney disease with previous baseline creatinin e between 2 to 2.5 mg/dL. Etiology of acute kidney injury is secondary to acute tubular necrosis due to shock and sepsis. The patient was initiated on hemodialysis for solute clearance and volume katiuska chinyere. The patient has shown increased urinary output; however, remains grossly volume overloaded. Pl an is to continue dialysis for volume removal. Continue diuretic therapy, monitor renal function and electrolytes closely. 2. Volume overload secondary to acute kidney injury, chronic kidney disease, decompensated heart cem lure. Continue diuretic therapy. Continue ultrafiltration dialysis. 3. Hypokalemia and hypomagnesemia. Continue to monitor and replete. 4. Anemia. Monitor hemoglobin and hematocrit levels. 5. Mineral bone disorder, monitor calcium and phosphorus levels. 6. Hypernatremia, improved. Continue free water flushes. 7. Ventilator-dependent respiratory failure. Vent settings and ABG was reviewed. Continue to monit or. Follow up with pulmonary. 8. Sepsis, status post shock secondary to urinary tract infection and pneumonia. The patient is com pleting antibiotic course. 9. Tachyarrhythmia. Continue to monitor. Follow up with Cardiology. 10. Dysphagia. Continue tube feeding. 11. Acute encephalopathy, etiology is toxic metabolic. 12. Lower extremity wounds. Continue wound care. Dictated By: JEANA FINE/TABATHA Conf#: [id number] DID#: [id number] CC: QUINTEN UMAÑA MD; ROLAND GIRON MD;*End*
--- NOTE | 2018-05-26 08:38 | CONS ---
Assessment/Plan Assessment/Plan Hospital Course (Demo Recall) 73 yo female Interval hx: Versed gtt. Tolerating tube feeds at 35cc/hr. No signs of GI bleeding. hgb 9.0. Continues to have increase in liquid brown stool. Questran is TID. 1. Malfunctioning gastrostomy tube. -resolved 2. Renal failure.- on HD 3. Sepsis. -with mx organisms at trach site wound 4. Chronic obstructive pulmonary disease. 5. Bipolar. 6. Paroxysmal atrial fibrillation. 7. Anemia of chronic disease. 8. CHF 9. Elevated alk phos with h/o hepatic venous congestion seen on abd CT in 2018 -resolved 10. Respiratory failure 11. Diarrhea 12. UTI with mx organisms 13. H/O deep esophageal ulcer PLAN: Monitor residuals q 4 hours Continue vanco PO and Flagyl IV for full course, taper down when course is up Increase questran to QID Monitor for signs of GI bleeding Pt examined and plan of care discussed with Dr Carolina Consultation Date/Type/Reason Admit Date/Time May 06, 2018 at 17:38 Initial Consult Date 05/10/18 Requesting Provider: ROLAND GIRON MD Date/Time of Note DATE: 05/26/18 TIME: 08:36 Exam/Review of Systems Exam Vitals Vital Signs Date Temp Pulse Resp B/P (MAP) Pulse Ox O2 O2 Flow FiO2 Time Delivery Rate 05/26/18 30 08:00 05/26/18 85 27 135/61 100 Mechanical 06:00 (85) Ventilator 05/26/18 98.9 04:00 Intake and Output 05/25/18 05/25/18 05/26/18 1515:00 23:00 07:00 IntakeIntake Total 896 ml 796 ml 761 ml OutputOutput Total 480 ml 2780 ml 465 ml BalanceBalance 416 ml -1984 ml 296 ml Head: normocephalic Eyes: nl sclera, PERRL ENMT: intubated Respiratory: diminished breath sounds Cardiovascular: regular rate and rhythm Gastrointestinal: soft, non-tender Extremities: other (BLE edema) Neurological: other (sedated but opens eyes to verbal and physical stimulation) Results Result Diagram: 05/26/18 0447 05/26/187 Results 24hrs Laboratory Tests Test 05/26/18 04:47 White Blood Count 8.9 Red Blood Count 2.86 L Hemoglobin 9.0 L Hematocrit 29.3 L Mean Corpuscular Volume 102.4 H Mean Corpuscular Hemoglobin 31.5 Mean Corpuscular Hemoglobin Concent 30.7 L Red Cell Distribution Width 19.1 H Platelet Count 319 Mean Platelet Volume 10.8 H Immature Granulocytes % 0.700 H Neutrophils % 75.7 Lymphocytes % 11.6 L Monocytes % 8.5 Eosinophils % 2.8 Basophils % 0.7 Nucleated Red Blood Cells % 0.0 Immature Granulocytes # 0.060 H Neutrophils # 6.8 Lymphocytes # 1.0 Monocytes # 0.8 Eosinophils # 0.3 Basophils # 0.1 Nucleated Red Blood Cells # 0.0 Sodium Level 140 Potassium Level 3.3 L Chloride Level 103 Carbon Dioxide Level 28 Anion Gap 9 Blood Urea Nitrogen 23 #H Creatinine 1.47 H Est Glomerular Filtrat Rate mL/min Glucose Level 103 Calcium Level 8.4 Phosphorus Level 2.8 Magnesium Level 1.6 L Medications Medication Current Medications IV Flush (NS 10 ml) 10 ml PRN IV ; Start 05/06/18 at 20:30 Ascorbic Acid (Vitamin C) 500 mg DAILY GTB Last administered on 05/25/18 08:39; Admin Dose 500 MG; Start 05/07/18 at 09:00 Albuterol/ Ipratropium (Duoneb) 3 ml Q2H RESP THERAPY PRN HHN SHORTNESS OF BREATH; Start 05/06/18 at 23:30 Zinc Sulfate (Zinc Sulfate) 220 mg DAILY GTB Last administered on 05/25/18 08:39; Admin Dose 220 MG; Start 05/07/18 at 09:00 Ondansetron HCl (Zofran Tab) 4 mg Q6H PRN GTB NAUSEA AND/OR VOMITING; Start 05/07/18 at 00:15 Multivitamins (Multivitamin) 30 ml DAILY GTB Last administered on 05/25/18 08:39; Admin Dose 30 ML; Start 05/07/18 at 09:00 Norepinephrine 250 ml @ 1.875 mls/ hr TITRATE IV Last administered on 05/08/18 13:33; Admin Dose 33.75 MLS/HR; Start 05/08/18 at 03:00 Phenylephrine HCl 80 mg/Dextrose 250 ml @ 18.75 mls/ hr TITRATE IV Last administered on 05/15/18 01:50; Admin Dose 5.63 MLS/HR; Start 05/09/18 at 12:30 Miscellaneous Information (Pending Santyl Order For Wound Care) This patient goldman... PRN PRN XX WOUND CARE; Start 05/09/18 at 17:00 Vancomycin HCl (Vancomycin Oral Syringe) 250 mg Q6 PO Last administered on 05/26/18 05:38; Admin Dose 250 MG; Start 05/12/18 at 00:00 Metronidazole 100 ml @ 100 mls/hr Q8 IVPB Last administered on 05/26/18 05:38; Admin Dose 100 MLS/HR; Start 05/11/18 at 20:00 Collagenase (Santyl) 1 applic DAILY TOP Last administered on 05/25/18 08:40; Admin Dose 1 APPLIC; Start 05/13/18 at 09:00 Propofol 100 ml @ 2.64 mls/hr Q12H IV Last administered on 05/21/18 07:19; Admin Dose 18.48 MLS/HR; Start 05/12/18 at 18:30 Albuterol (Ventolin Hfa) 4 puff Q6H RESP THERAPY INH Last administered on 05/26/18 08:01; Admin Dose 4 PUFF; Start 05/12/18 at 20:00 Ipratropium [place] (Atrovent Hfa) 4 puff Q6H RESP THERAPY INH Last administered on 05/26/18 08:01; Admin Dose 4 PUFF; Start 05/12/18 at 20:00 Heparin Sodium (Porcine) (Heparin (1000 Units/ml)) 2,800 unit AFTER DIALYSIS CATHETER Last administered on 05/23/18 22:55; Admin Dose 2,800 UNIT; Start 05/16/18 at 16:30 Furosemide (Lasix) 40 mg BID DIURETICS IV Last administered on 05/26/18 05:36; Admin Dose 40 MG; Start 05/19/18 at 09:00 Epoetin Zen-epbx (RETACRIT(esrd)) 20,000 unit Tu@1700 SC Last administered on 05/19/18 18:23; Admin Dose 20,000 UNIT; Start 05/19/18 at 17:00 Spironolactone (Aldactone) 50 mg DAILY GTB Last administered on 05/25/18 08:39; Admin Dose 50 MG; Start 05/21/18 at 09:00 Midazolam HCl 50 ml @ 1 mls/hr TITRATE IV Last administered on 05/26/18at 05:57; Admin Dose 2 MLS/HR; Start 05/21/18 at 10:30 Amiodarone HCl (Cordarone) 200 mg TID PO Last administered on 05/25/18at 20:57; Admin Dose 200 MG; Start 05/21/18 at 14:30 Metolazone (Zaroxolyn) 5 mg DAILY@0600 PO Last administered on 05/26/18at 05:53; Admin Dose 5 MG; Start 05/22/18 at 09:00 Metoprolol Tartrate (Lopressor) 50 mg Q8 GTB Last administered on 05/26/18at 05:36; Admin Dose 50 MG; Start 05/22/18 at 14:00 Famotidine (Pepcid) 20 mg DAILY PEG Last administered on 05/25/18at 08:39; Admin Dose 20 MG; Start 05/23/18 at 09:00 Morphine Sulfate (morphine) 6 mg Q4H PRN PEG SEVERE PAIN LEVEL 7-10; Start 05/22/18 at 17:00 Cholestyramine Resin (Questran Light) 4 gm 0300,1100,2300 PO Last administered on 05/26/18at 04:04; Admin Dose 4 GM; Start 05/25/18 at 23:00 Magnesium Sulfate 50 ml @ 25 mls/hr ONCE ONCE IVPB ; Start 05/26/18 at 08:00; Stop 05/26/18 at 09:59 Potassium Chloride (Potassium Chloride Pwd/Soln) 60 meq ONCE ONCE NGT ; Start 05/26/18 at 09:00; Stop 05/26/18 at 09:01 SHAHEEN GAMBOA May 26, 2018 08:38
[2018-05-26] MEDS: SPIRONOLACTONE 25 MG TAB GTB SCH (08:44)
[2018-05-26] MEDS: ZINC SULFATE 220 MG CAP GTB SCH (08:44)
[2018-05-26] MEDS: FAMOTIDINE 20 MG TAB PEG SCH (08:45)
[2018-05-26] MEDS: AMIODARONE 200 MG TAB PO SCH ×3 (08:45→20:21)
[2018-05-26] MEDS: ASCORBIC ACID 500 MG TAB GTB SCH (08:45)
[2018-05-26] MEDS: MULTIVITAMINS 30 ML CUP GTB SCH (08:45)
[2018-05-26] MEDS: BALSAM PERU/CASTOR OIL 60 GM TUBE TOP SCH ×2 (08:46→20:22)
[2018-05-26] MEDS: COLLAGENASE 5 GM (UD JAR) TOP SCH (08:46)
[2018-05-26] MEDS ORDERED: POTASSIUM CHLORIDE 20 MEQ POWDER FOR ORAL SOLN NGT ONE (09:00)
--- NOTE | 2018-05-26 09:39 | CONS ---
Assessment/Plan Assessment/Plan Assessment/Plan (Daily) Ventilator setting; AC of 20, tidal volume 500, PEEP of 5, 30% FiO2. Assessment recommendations; 1. Patient with history of prior VDR F status post decannulation of tracheostomy 2 months ago admitted for recurrent severe pneumonia, off antibiotics. 2. Patient has failed multiple weaning attempts from ventilator. 3. Renal failure, hemodialysis dependent. 4. Anemia. Continue current supportive care. Patient will be given another CPAP trial off sedation, and will likely be scheduled for redo tracheostomy. Consultation Date/Type/Reason Admit Date/Time May 06, 2018 at 17:38 Initial Consult Date 05/10/18 Type of Consult Pulmonary/critical care Requesting Provider: ROLAND GIRON MD Date/Time of Note DATE: 05/26/18 TIME: 09:37 24 HR Interval Summary Free Text/Dictation Patient's condition is stable, has failed multiple weaning attempts from ventilator. General exam; elderly female, orally intubated, sedated, currently no distress. Exam/Review of Systems Exam Vitals Vital Signs Date Temp Pulse Resp B/P (MAP) Pulse Ox O2 O2 Flow FiO2 Time Delivery Rate 05/26/18 84 28 122/57 100 09:00 (78) 05/26/18 98.7 Mechanical 08:00 Ventilator 05/26/18 30 08:00 Intake and Output 05/25/18 05/25/18 05/26/18 1515:00 23:00 07:00 IntakeIntake Total 896 ml 796 ml 761 ml OutputOutput Total 480 ml 2780 ml 465 ml BalanceBalance 416 ml -1984 ml 296 ml Exam H EENT exam; supple neck, no JVD. No lymphadenopathy. Midline trachea. No thyromegaly. Orally intubated. Patient has carious teeth. Dressing applied over prior tracheostomy site. Chest exam; bilateral crackles. S1-S2 audible, no murmurs. Regular rhythm. Abdomen exam; soft, no organomegaly. G-tube in place. Bowel sounds audible. Extremity exam; trace edema with multiple ecchymosis. HVAC SERVICE TECHNICIAN exam; patient is sedated. Results Result Diagram: 05/26/18 0447 05/26/18446 Results 24hrs Laboratory Tests Test 05/26/18 04:47 White Blood Count 8.9 Red Blood Count 2.86 L Hemoglobin 9.0 L Hematocrit 29.3 L Mean Corpuscular Volume 102.4 H Mean Corpuscular Hemoglobin 31.5 Mean Corpuscular Hemoglobin Concent 30.7 L Red Cell Distribution Width 19.1 H Platelet Count 319 Mean Platelet Volume 10.8 H Immature Granulocytes % 0.700 H Neutrophils % 75.7 Lymphocytes % 11.6 L Monocytes % 8.5 Eosinophils % 2.8 Basophils % 0.7 Nucleated Red Blood Cells % 0.0 Immature Granulocytes # 0.060 H Neutrophils # 6.8 Lymphocytes # 1.0 Monocytes # 0.8 Eosinophils # 0.3 Basophils # 0.1 Nucleated Red Blood Cells # 0.0 Sodium Level 140 Potassium Level 3.3 L Chloride Level 103 Carbon Dioxide Level 28 Anion Gap 9 Blood Urea Nitrogen 23 #H Creatinine 1.47 H Est Glomerular Filtrat Rate mL/min Glucose Level 103 Calcium Level 8.4 Phosphorus Level 2.8 Magnesium Level 1.6 L Medications Medication Current Medications IV Flush (NS 10 ml) 10 ml PRN IV ; Start 05/06/18 at 20:30 Ascorbic Acid (Vitamin C) 500 mg DAILY GTB Last administered on 05/26/18 08:45; Admin Dose 500 MG; Start 05/07/18 at 09:00 Albuterol/ Ipratropium (Duoneb) 3 ml Q2H RESP THERAPY PRN HHN SHORTNESS OF BREATH; Start 05/06/18 at 23:30 Zinc Sulfate (Zinc Sulfate) 220 mg DAILY GTB Last administered on 05/26/18 08:44; Admin Dose 220 MG; Start 05/07/18 at 09:00 Ondansetron HCl (Zofran Tab) 4 mg Q6H PRN GTB NAUSEA AND/OR VOMITING; Start 05/07/18 at 00:15 Multivitamins (Multivitamin) 30 ml DAILY GTB Last administered on 05/26/18 08:45; Admin Dose 30 ML; Start 05/07/18 at 09:00 Norepinephrine 250 ml @ 1.875 mls/ hr TITRATE IV Last administered on 05/08/18at 13:33; Admin Dose 33.75 MLS/HR; Start 05/08/18 at 03:00 Phenylephrine HCl 80 mg/Dextrose 250 ml @ 18.75 mls/ hr TITRATE IV Last administered on 05/15/18at 01:50; Admin Dose 5.63 MLS/HR; Start 05/09/18 at 12:30 Miscellaneous Information (Pending Santyl Order For Wound Care) This patient goldman... PRN PRN XX WOUND CARE; Start 05/09/18 at 17:00 Vancomycin HCl (Vancomycin Oral Syringe) 250 mg Q6 PO Last administered on 05/26/18 05:38; Admin Dose 250 MG; Start 05/12/18 at 00:00 Metronidazole 100 ml @ 100 mls/hr Q8 IVPB Last administered on 05/26/18 05:38; Admin Dose 100 MLS/HR; Start 05/11/18 at 20:00 Collagenase (Santyl) 1 applic DAILY TOP Last administered on 05/26/18 08:46; Admin Dose 1 APPLIC; Start 05/13/18 at 09:00 Propofol 100 ml @ 2.64 mls/hr Q12H IV Last administered on 05/21/18 07:19; Admin Dose 18.48 MLS/HR; Start 05/12/18 at 18:30 Albuterol (Ventolin Hfa) 4 puff Q6H RESP THERAPY INH Last administered on 05/26/18 08:01; Admin Dose 4 PUFF; Start 05/12/18 at 20:00 Ipratropium [place] (Atrovent Hfa) 4 puff Q6H RESP THERAPY INH Last administered on 05/26/18 08:01; Admin Dose 4 PUFF; Start 05/12/18 at 20:00 Heparin Sodium (Porcine) (Heparin (1000 Units/ml)) 2,800 unit AFTER DIALYSIS CATHETER Last administered on 05/23/18 22:55; Admin Dose 2,800 UNIT; Start 05/16/18 at 16:30 Furosemide (Lasix) 40 mg BID DIURETICS IV Last administered on 05/26/18 05:36; Admin Dose 40 MG; Start 05/19/18 at 09:00 Epoetin Zen-epbx (RETACRIT(esrd)) 20,000 unit Tu@1700 SC Last administered on 05/19/18 18:23; Admin Dose 20,000 UNIT; Start 05/19/18 at 17:00 Spironolactone (Aldactone) 50 mg DAILY GTB Last administered on 05/26/18 08:44; Admin Dose 50 MG; Start 05/21/18 at 09:00 Midazolam HCl 50 ml @ 1 mls/hr TITRATE IV Last administered on 05/26/18at 05:57; Admin Dose 2 MLS/HR; Start 05/21/18 at 10:30 Amiodarone HCl (Cordarone) 200 mg TID PO Last administered on 05/26/18 08:45; Admin Dose 200 MG; Start 05/21/18 at 14:30 Metolazone (Zaroxolyn) 5 mg DAILY@0600 PO Last administered on 05/26/18at 05:53; Admin Dose 5 MG; Start 05/22/18 at 09:00 Metoprolol Tartrate (Lopressor) 50 mg Q8 GTB Last administered on 05/26/18at 05:36; Admin Dose 50 MG; Start 05/22/18 at 14:00 Famotidine (Pepcid) 20 mg DAILY PEG Last administered on 05/26/18at 08:45; Admin Dose 20 MG; Start 05/23/18 at 09:00 Morphine Sulfate (morphine) 6 mg Q4H PRN PEG SEVERE PAIN LEVEL 7-10; Start 05/22/18 at 17:00 Magnesium Sulfate 50 ml @ 25 mls/hr ONCE ONCE IVPB Last administered on 05/26/18at 08:44; Admin Dose 25 MLS/HR; Start 05/26/18 at 08:00; Stop 05/26/18 at 09:59 Cholestyramine Resin (Questran Light) 4 gm QID PO ; Start 05/26/18 at 09:00 ELOISA LAURA May 26, 2018 09:39
--- NOTE | 2018-05-26 13:15 | CONS ---
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 colonization of the airway by pseudomonas and ESBL+klebsiella - h/o possible, recurrent HCAP due to pseudomonas and ESBL+klebsiella - h/o recurrent HCAP due to MRSA and Enterobacter (culture of tracheal aspirate on 07/16/2017 that was collected at [facility]) . Pt took vancomycin and ceftazidime - h/o decannulation prior to admission - h/o tracheostomy on 06/11/2017 - h/o SIRS from UGIB in 2017 - h/o thoracentesis on 07/18/2017, transudative (protein <2, LDH 279) - h/o bleeding from the trach site in 2017 - h/o septic shock due to pneumonia, ARDS, bacteremia, fungemia in 2018 - h/o ARDS in 2018 - h/o smoking - COPD - h/o ILD per medical record - h/o PAF, improved # GI - C diff colitis, diagnosed on 05/11/2018 - h/o intermittent diarrhea, Pt had multiple negative C. diff tests at [facility] at [facility] in the past; none was positive until 05/11/2018 - dysphagia - h/o PEG placement 06/13/2018 - protein calorie malnutrition - h/o coffee ground emesis/UGIB on 12/23/2017 due to deep ulceration of distal esophagus and gastritis on EGD 12/26/2017. No e/o H. pylori - h/o possible appendicitis on CT on 11/22/2017, Pt took ertapenem (11/24/2017- 12/01/2017) - h/o extensive adhesions lower abdominal and pelvis between small bowel to each other and to colon and to abdominal wall, anterior pelvic wall chronic abscess secondary to probably an old perforated diverticulitis, torsion of small bowel around these dense adhesion causing multiple obstructive points - h/o laparoscopic exploration and extensive lysis of adhesions and drainage of anterior pelvic wall abscess 09/16/2017. Cultures were negative, no e/o malignancy. Pt took pip/tazo (09/16/2017-09/26/2017) - h/o EGD and exchange of PEG on 09/01/2017 - h/o partial obstruction mid jejunum in L anterior central pelvis with suggestion of a 3 cm soft tissue mass on CT 08/28/2017 - h/o internal stomal deep ulcer behind the internal bumper, gastritis and esophagitis, Rodriguez's cannot be ruled out, per EGD with biopsy 07/23/2017 - h/o GIB s/p flex sig showed polyp; stool OB negative on 06/29/17 - h/o stool OB positive status - h/o SBO and ileus due to pain meds - h/o mildly elevated CEA # renal/ - anasarca - started on HD on 05/15/2018, via Kem in R groin - recurrent NATHAN on CKD - 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 Her strain of CRE was sensitive to colistin, Avycaz, and Vabomere but resistant to Zerbaxa (reported on 05/19/2018) - Hyponatremia - Hyperkalemia, now hypokalemia - Metabolic acidosis - adrenal insufficiency - h/o vaginal bleed in 2018 - h/o colonization of urinary tract by ESBL+klebsiella, VRE - h/o recurrent, symptomatic UTI due to carbapenem-resistant kleb (MDR strain) per urine culture 10/04/17, 10/09/17, 10/21/2017, P took colistin (10/09/2017-10/15), fosfomycin for carbapenemase-producing klebsiella and VRE on 10/25/2017 and 10/28/2017 - h/o funguria - h/o urinary retention # fungemia, bacteremia 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 improved. Probable manifestation of endocarditis. Pt declined MRI on 08/06/2017 - h/o infection of R toes due to pseudomonas. coagulase negative Staph likely a colonizer - h/o intertrigo of the groin, resolved with nystatin powder - h/o scabies, locally crusted lesion over L scapula, s/p permethrin cream and pGT ivermectin on 08/11/2017, 08/12/2017, 08/19/2017. Repeat skin scraping on 08/21/2017 was negative for scabies # psych, neuro - acute toxic metabolic encephalopathy - decreased hearing b/l - h/o critical illness polyneuropathy - anxiety/depression, bipolar d/o, seen by Psychiatry in the past - chronic pain syndrome - h/o medical non-compliance: she would refuse her medications, treatment and straight catheterization in 2018 # hematological, vascular - chronic anemia requiring blood transfusion intermittently - Macrocytic anemia - 3.1 cm AAA on imaging - PVD Recommendations: - continue pGT vancomycin (05/11/2018-) and IV metronidazole (05/11/2018-) for C diff colitis. Pt completed meropenem for HCAP (05/13/2018-05/19/2018) Consultation Date/Type/Reason Admit Date/Time May 06, 2018 at 17:38 Initial Consult Date 05/10/18 Type of Consult ID Requesting Provider: ROLAND GIRON MD Date/Time of Note DATE: 05/26/18 TIME: 13:15 Exam/Review of Systems Exam Vitals Vital Signs Date Temp Pulse Resp B/P (MAP) Pulse Ox O2 O2 Flow FiO2 Time Delivery Rate 05/26/18 98.9 92 30 114/75 100 Mechanical 12:00 (88) Ventilator 05/26/18 30 09:50 Intake and Output 05/25/18 05/25/18 05/26/18 1515:00 23:00 07:00 IntakeIntake Total 896 ml 796 ml 761 ml OutputOutput Total 480 ml 2780 ml 465 ml BalanceBalance 416 ml -1984 ml 296 ml Constitutional: alert Head: normocephalic Eyes: EOMI Neck: supple Respiratory: clear to auscultation Cardiovascular: regular rate and rhythm Gastrointestinal: soft Neurological: [employer]JECT [employer]NAGER II-XII intact Results Result Diagram: 05/26/18 0447 05/26/18 0447 Results 24hrs Laboratory Tests Test 05/26/18 04:47 05/26/18 12:00 White Blood Count 8.9 Red Blood Count 2.86 L Hemoglobin 9.0 L Hematocrit 29.3 L Mean Corpuscular Volume 102.4 H Mean Corpuscular Hemoglobin 31.5 Mean Corpuscular Hemoglobin Concent 30.7 L Red Cell Distribution Width 19.1 H Platelet Count 319 Mean Platelet Volume 10.8 H Immature Granulocytes % 0.700 H Neutrophils % 75.7 Lymphocytes % 11.6 L Monocytes % 8.5 Eosinophils % 2.8 Basophils % 0.7 Nucleated Red Blood Cells % 0.0 Immature Granulocytes # 0.060 H Neutrophils # 6.8 Lymphocytes # 1.0 Monocytes # 0.8 Eosinophils # 0.3 Basophils # 0.1 Nucleated Red Blood Cells # 0.0 Sodium Level 140 Potassium Level 3.3 L Chloride Level 103 Carbon Dioxide Level 28 Anion Gap 9 Blood Urea Nitrogen 23 #H Creatinine 1.47 H Est Glomerular Filtrat Rate mL/min Glucose Level 103 Calcium Level 8.4 Phosphorus Level 2.8 Magnesium Level 1.6 L Blood Gas Specimen Source Blood arterial Arterial Blood Date Drawn 05/26/2018 12:20:00 PM Arterial Blood pH (Temp corrected) 7.381 Arterial Blood pCO2 (Temp correct) 46.8 H Arterial Blood pO2 (Temp corrected) 88.7 Arterial Blood HCO3 27.1 H Arterial Blood Base Excess 1.6 Arterial Blood Oxygen Saturation 95.9 Steven Test ACCEPTAB Arterial Blood Gas Puncture Site Right Radial Arterial Blood Carboxyhemoglobin 0.3 Arterial Blood Methemoglobin 0.3 Blood Gas A-a O2 Differential 70.2 H Oxyhemoglobin Percent 95.3 Blood Gas Temperature 37.0 Blood Gas Actual Respiration Rate 30 Blood Gas Modality VENT - CPAP FiO2 30.0 Blood Gas Low PEEP Setting 5.0 Blood Gas Pressure Support 10 Blood Gas Notified Whom TM Blood Gas Notified Time 05/26/2018 12:27:32 PM Medications Medication Current Medications IV Flush (NS 10 ml) 10 ml PRN IV ; Start 05/06/18 at 20:30 Ascorbic Acid (Vitamin C) 500 mg DAILY GTB Last administered on 05/26/18 08:45; Admin Dose 500 MG; Start 05/07/18 at 09:00 Albuterol/ Ipratropium (Duoneb) 3 ml Q2H RESP THERAPY PRN HHN SHORTNESS OF BREATH; Start 05/06/18 at 23:30 Zinc Sulfate (Zinc Sulfate) 220 mg DAILY GTB Last administered on 05/26/18 08:44; Admin Dose 220 MG; Start 05/07/18 at 09:00 Ondansetron HCl (Zofran Tab) 4 mg Q6H PRN GTB NAUSEA AND/OR VOMITING; Start 05/07/18 at 00:15 Multivitamins (Multivitamin) 30 ml DAILY GTB Last administered on 05/26/18 08:45; Admin Dose 30 ML; Start 05/07/18 at 09:00 Norepinephrine 250 ml @ 1.875 mls/ hr TITRATE IV Last administered on 05/08/18 13:33; Admin Dose 33.75 MLS/HR; Start 05/08/18 at 03:00 Phenylephrine HCl 80 mg/Dextrose 250 ml @ 18.75 mls/ hr TITRATE IV Last admin istered on 05/15/18 01:50; Admin Dose 5.63 MLS/HR; Start 05/09/18 at 12:30 Miscellaneous Information (Pending Santyl Order For Wound Care) This patient goldman... PRN PRN XX WOUND CARE; Start 05/09/18 at 17:00 Vancomycin HCl (Vancomycin Oral Syringe) 250 mg Q6 PO Last administered on 05/26/18 05:38; Admin Dose 250 MG; Start 05/12/18 at 00:00 Metronidazole 100 ml @ 100 mls/hr Q8 IVPB Last administered on 05/26/18 05:38; Admin Dose 100 MLS/HR; Start 05/11/18 at 20:00 Collagenase (Santyl) 1 applic DAILY TOP Last administered on 05/26/18 08:46; Admin Dose 1 APPLIC; Start 05/13/18 at 09:00 Propofol 100 ml @ 2.64 mls/hr Q12H IV Last administered on 05/21/18 07:19; Admin Dose 18.48 MLS/HR; Start 05/12/18 at 18:30 Albuterol (Ventolin Hfa) 4 puff Q6H RESP THERAPY INH Last administered on 05/26/18 08:01; Admin Dose 4 PUFF; Start 05/12/18 at 20:00 Ipratropium [place] (Atrovent Hfa) 4 puff Q6H RESP THERAPY INH Last administered on 05/26/18 08:01; Admin Dose 4 PUFF; Start 05/12/18 at 20:00 Heparin Sodium (Porcine) (Heparin (1000 Units/ml)) 2,800 unit AFTER DIALYSIS CATHETER Last administered on 05/23/18 22:55; Admin Dose 2,800 UNIT; Start 05/16/18 at 16:30 Furosemide (Lasix) 40 mg BID DIURETICS IV Last administered on 05/26/18 05:36; Admin Dose 40 MG; Start 05/19/18 at 09:00 Epoetin Zen-epbx (RETACRIT(esrd)) 20,000 unit Tu@1700 SC Last administered on 05/19/18 18:23; Admin Dose 20,000 UNIT; Start 05/19/18 at 17:00 Spironolactone (Aldactone) 50 mg DAILY GTB Last administered on 05/26/18 08:44; Admin Dose 50 MG; Start 05/21/18 at 09:00 Midazolam HCl 50 ml @ 1 mls/hr TITRATE IV Last administered on 05/26/18 05:57; Admin Dose 2 MLS/HR; Start 05/21/18 at 10:30 Amiodarone HCl (Cordarone) 200 mg TID PO Last administered on 05/26/18 08:45; Admin Dose 200 MG; Start 05/21/18 at 14:30 Metolazone (Zaroxolyn) 5 mg DAILY@0600 PO Last administered on 05/26/18 05:53; Admin Dose 5 MG; Start 05/22/18 at 09:00 Metoprolol Tartrate (Lopressor) 50 mg Q8 GTB Last administered on 05/26/18 0 5:36; Admin Dose 50 MG; Start 05/22/18 at 14:00 Famotidine (Pepcid) 20 mg DAILY PEG Last administered on 05/26/18at 08:45; Admin Dose 20 MG; Start 05/23/18 at 09:00 Morphine Sulfate (morphine) 6 mg Q4H PRN PEG SEVERE PAIN LEVEL 7-10; Start 05/22/18 at 17:00 Cholestyramine Resin (Questran Light) 4 gm QID PO Last administered on 05/26/18at 09:42; Admin Dose 4 GM; Start 05/26/18 at 09:00 MANN VALDEZ MD May 26, 2018 13:15
--- NOTE | 2018-05-26 15:48 | PN ---
Date/Time of Note Date/Time of Note DATE: 05/26/18 TIME: 15:43 Assessment/Plan VTE Prophylaxis Risk score (from Ns)>0 risk: 10 SCD applied (from Ns): Yes Pharmacological prophylaxis: heparin Lines/Catheters IV [facility]ter [facility]from [facility]): Juan Urinary Cath still in place: Yes Reason Cath still needed: urinary retention Assessment/Plan Hospital Course Patient unable to tolerate ventilator weaning today, plan for tracheostomy. Patient's continues on ventilator support, Versed drip for sedation. Continues to have diarrhea. Electrolytes replacement given for low potassium and magnesium. Assessment/Plan -Atrial fibrillation was rapid ventricular response, s/p amiodarone drip. Rate is well controlled on p.o. amiodarone and metoprolol. Dr. Scanlon is following in cardiology consultation. -Septic shock secondary to urinary tract infection, anterior neck soft tissue infection, and C. difficile colitis, resolving. Continue antibiotics per ID. Dr. Black is following in infection disease consultation. -Acute respiratory failure requiring intubation and ventilatory support. Dr. Lambert is following in pulmonology consultation. -Acute kidney injury on chronic kidney disease. Started on HD this admission. Dr. Mckeon is following in nephrology consultation. -Anemia of chronic inflammation, stool for OB is negative, status post blood transfusion. Continue Epogen. -Metabolic acidosis, resolved. -Acute diastolic congestive heart failure. -Paroxysmal atrial fibrillation -COPD -Dysphagia with PEG. -G-tube mild malfunction, changed by GI Dr. Carolina is following in gastroenterology consultation. -Obesity Critical care time spent is 30 minutes. Further recommendations based on clinical course. Plan of care discussed with Dr. Eisenberg. Result Diagram: 05/26/18 0447 05/26/18 0447 Results 24hrs Laboratory Tests Test 05/26/18 04:47 05/26/18 12:00 White Blood Count 8.9 Red Blood Count 2.86 L Hemoglobin 9.0 L Hematocrit 29.3 L Mean Corpuscular Volume 102.4 H Mean Corpuscular Hemoglobin 31.5 Mean Corpuscular Hemoglobin Concent 30.7 L Red Cell Distribution Width 19.1 H Platelet Count 319 Mean Platelet Volume 10.8 H Immature Granulocytes % 0.700 H Neutrophils % 75.7 Lymphocytes % 11.6 L Monocytes % 8.5 Eosinophils % 2.8 Basophils % 0.7 Nucleated Red Blood Cells % 0.0 Immature Granulocytes # 0.060 H Neutrophils # 6.8 Lymphocytes # 1.0 Monocytes # 0.8 Eosinophils # 0.3 Basophils # 0.1 Nucleated Red Blood Cells # 0.0 Sodium Level 140 Potassium Level 3.3 L Chloride Level 103 Carbon Dioxide Level 28 Anion Gap 9 Blood Urea Nitrogen 23 #H Creatinine 1.47 H Est Glomerular Filtrat Rate mL/min Glucose Level 103 Calcium Level 8.4 Phosphorus Level 2.8 Magnesium Level 1.6 L Blood Gas Specimen Source Blood arterial Arterial Blood Date Drawn 05/26/2018 12:20:00 PM Arterial Blood pH (Temp corrected) 7.381 Arterial Blood pCO2 (Temp correct) 46.8 H Arterial Blood pO2 (Temp corrected) 88.7 Arterial Blood HCO3 27.1 H Arterial Blood Base Excess 1.6 Arterial Blood Oxygen Saturation 95.9 Steven Test ACCEPTAB Arterial Blood Gas Puncture Site Right Radial Arterial Blood Carboxyhemoglobin 0.3 Arterial Blood Methemoglobin 0.3 Blood Gas A-a O2 Differential 70.2 H Oxyhemoglobin Percent 95.3 Blood Gas Temperature 37.0 Blood Gas Actual Respiration Rate 30 Blood Gas Modality VENT - CPAP FiO2 30.0 Blood Gas Low PEEP Setting 5.0 Blood Gas Pressure Support 10 Blood Gas Notified Whom TM Blood Gas Notified Time 05/26/2018 12:27:32 PM Exam/Review of Systems Exam Vitals Vital Signs Date Temp Pulse Resp B/P (MAP) Pulse Ox O2 O2 Flow FiO2 Time Delivery Rate 05/26/18 104 28 97 30 14:00 05/26/18 130/61 14:00 (84) 05/26/18 98.9 Mechanical 12:00 Ventilator Intake and Output 05/25/18 05/25/18 05/26/18 1515:00 23:00 07:00 IntakeIntake Total 896 ml 796 ml 796 ml OutputOutput Total 480 ml 2780 ml 540 ml BalanceBalance 416 ml -1984 ml 256 ml Exam Constitutional: frail, orally intubated Respiratory: diminished breath sounds Cardiovascular: irregular rate and rhythm Gastrointestinal: soft, tender, other (G-tube) Musculoskeletal: nl extremities to inspection Extremities: normal pulses Neurological: sedated Results Results 24hrs Laboratory Tests Test 05/26/18 04:47 05/26/18 12:00 White Blood Count 8.9 Red Blood Count 2.86 L Hemoglobin 9.0 L Hematocrit 29.3 L Mean Corpuscular Volume 102.4 H Mean Corpuscular Hemoglobin 31.5 Mean Corpuscular Hemoglobin Concent 30.7 L Red Cell Distribution Width 19.1 H Platelet Count 319 Mean Platelet Volume 10.8 H Immature Granulocytes % 0.700 H Neutrophils % 75.7 Lymphocytes % 11.6 L Monocytes % 8.5 Eosinophils % 2.8 Basophils % 0.7 Nucleated Red Blood Cells % 0.0 Immature Granulocytes # 0.060 H Neutrophils # 6.8 Lymphocytes # 1.0 Monocytes # 0.8 Eosinophils # 0.3 Basophils # 0.1 Nucleated Red Blood Cells # 0.0 Sodium Level 140 Potassium Level 3.3 L Chloride Level 103 Carbon Dioxide Level 28 Anion Gap 9 Blood Urea Nitrogen 23 #H Creatinine 1.47 H Est Glomerular Filtrat Rate mL/min Glucose Level 103 Calcium Level 8.4 Phosphorus Level 2.8 Magnesium Level 1.6 L Blood Gas Specimen Source Blood arterial Arterial Blood Date Drawn 05/26/2018 12:20:00 PM Arterial Blood pH (Temp corrected) 7.381 Arterial Blood pCO2 (Temp correct) 46.8 H Arterial Blood pO2 (Temp corrected) 88.7 Arterial Blood HCO3 27.1 H Arterial Blood Base Excess 1.6 Arterial Blood Oxygen Saturation 95.9 Steven Test ACCEPTAB Arterial Blood Gas Puncture Site Right Radial Arterial Blood Carboxyhemoglobin 0.3 Arterial Blood Methemoglobin 0.3 Blood Gas A-a O2 Differential 70.2 H Oxyhemoglobin Percent 95.3 Blood Gas Temperature 37.0 Blood Gas Actual Respiration Rate 30 Blood Gas Modality VENT - CPAP FiO2 30.0 Blood Gas Low PEEP Setting 5.0 Blood Gas Pressure Support 10 Blood Gas Notified Whom TM Blood Gas Notified Time 05/26/2018 12:27:32 PM Medications Medication Current Medications IV Flush (NS 10 ml) 10 ml PRN IV ; Start 05/06/18 at 20:30 Ascorbic Acid (Vitamin C) 500 mg DAILY GTB Last administered on 05/26/18at 08:45; Admin Dose 500 MG; Start 05/07/18 at 09:00 Albuterol/ Ipratropium (Duoneb) 3 ml Q2H RESP THERAPY PRN HHN SHORTNESS OF BREATH; Start 05/06/18 at 23:30 Zinc Sulfate (Zinc Sulfate) 220 mg DAILY GTB Last administered on 05/26/18 08:44; Admin Dose 220 MG; Start 05/07/18 at 09:00 Ondansetron HCl (Zofran Tab) 4 mg Q6H PRN GTB NAUSEA AND/OR VOMITING; Start 05/07/18 at 00:15 Multivitamins (Multivitamin) 30 ml DAILY GTB Last administered on 05/26/18 08:45; Admin Dose 30 ML; Start 05/07/18 at 09:00 Norepinephrine 250 ml @ 1.875 mls/ hr TITRATE IV Last administered on 13:33; Admin Dose 33.75 MLS/HR; Start 05/08/18 at 03:00 Phenylephrine HCl 80 mg/Dextrose 250 ml @ 18.75 mls/ hr TITRATE IV Last administered on 05/15/18 01:50; Admin Dose 5.63 MLS/HR; Start 05/09/18 at 12:30 Miscellaneous Information (Pending Santyl Order For Wound Care) This patient goldman... PRN PRN XX WOUND CARE; Start 05/09/18 at 17:00 Vancomycin HCl (Vancomycin Oral Syringe) 250 mg Q6 PO Last administered on 05/26/18 14:05; Admin Dose 250 MG; Start 05/12/18 at 00:00 Metronidazole 100 ml @ 100 mls/hr Q8 IVPB Last administered on 05/26/18 14:06; Admin Dose 100 MLS/HR; Start 05/11/18 at 20:00 Collagenase (Santyl) 1 applic DAILY TOP Last administered on 05/26/18 08:46; Admin Dose 1 APPLIC; Start 05/13/18 at 09:00 Propofol 100 ml @ 2.64 mls/hr Q12H IV Last administered on 05/21/18 07:19; Admin Dose 18.48 MLS/HR; Start 05/12/18 at 18:30 Albuterol (Ventolin Hfa) 4 puff Q6H RESP THERAPY INH Last administered on 05/26/18 14:00; Admin Dose 4 PUFF; Start 05/12/18 at 20:00 Ipratropium [place] (Atrovent Hfa) 4 puff Q6H RESP THERAPY INH Last administered on 05/26/18 14:00; Admin Dose 4 PUFF; Start 05/12/18 at 20:00 Heparin Sodium (Porcine) (Heparin (1000 Units/ml)) 2,800 unit AFTER DIALYSIS CATHETER Last administered on 05/23/18 22:55; Admin Dose 2,800 UNIT; Start 05/16/18 at 16:30 Furosemide (Lasix) 40 mg BID DIURETICS IV Last administered on 05/26/18 05:36; Admin Dose 40 MG; Start 05/19/18 at 09:00 Epoetin Zen-epbx (RETACRIT(esrd)) 20,000 unit Tu@1700 SC Last administered on 05/19/18 18:23; Admin Dose 20,000 UNIT; Start 05/19/18 at 17:00 Spironolactone (Aldactone) 50 mg DAILY GTB Last administered on 05/26/18 08:44; Admin Dose 50 MG; Start 05/21/18 at 09:00 Midazolam HCl 50 ml @ 1 mls/hr TITRATE IV Last administered on 05/26/18 05:57; Admin Dose 2 MLS/HR; Start 05/21/18 at 10:30 Amiodarone HCl (Cordarone) 200 mg TID PO Last administered on 05/26/18 14:06; Admin Dose 200 MG; Start 05/21/18 at 14:30 Metolazone (Zaroxolyn) 5 mg DAILY@0600 PO Last administered on 05/26/18 05:53; Admin Dose 5 MG; Start 05/22/18 at 09:00 Metoprolol Tartrate (Lopressor) 50 mg Q8 GTB Last administered on 05/26/18 14:06; Admin Dose 50 MG; Start 05/22/18 at 14:00 Famotidine (Pepcid) 20 mg DAILY PEG Last administered on 05/26/18 08:45; Admin Dose 20 MG; Start 05/23/18 at 09:00 Morphine Sulfate (morphine) 6 mg Q4H PRN PEG SEVERE PAIN LEVEL 7-10; Start 05/22/18 at 17:00 Cholestyramine Resin (Questran Light) 4 gm QID PO Last administered on 05/26/18 14:06; Admin Dose 4 GM; Start 05/26/18 at 09:00 GRISELDA DENNIS May 26, 2018 15:48
--- NOTE | 2018-05-26 17:18 | PN ---
DATE: 05/26/2018 ADDENDUM: I spoke with patient's son, Johnson and explained to him that patient failed CPAP trial to day. The patient would need tracheostomy. He has already made her DNR. He would like to proceed wi th tracheostomy for now and continue with hemodialysis as needed. Dictated By: ROLAND GIRON MD AB/NTS Conf#: [id number] DID#: [id number] CC: QUINTEN UMAÑA MD;*EndCC*
[2018-05-26] MEDS: EPOETIN ALFA-EPBX (ESRD) 10,000 UNIT/ML VIAL SC SCH (17:28)
--- NOTE | 2018-05-26 17:38 | CONS ---
Assessment/Plan Assessment/Plan Hospital Course (Demo Recall) Septic as well as hemorrhagic shock Hypotension, off IV pressor and improving Acute respiratory failure status post intubation Acute blood loss anemia Septic shock and hemorrhagic shock Parox Atrial fibrillation History of respiratory failure status post decannulation Preserved ejection fraction echocardiogram 05/10/2018 Paroxysmal atrial fibrillation, currently sinus rhythm Acute kidney injury -Patient with paroxysmal atrial fibrillation, continue p.o. amiodarone, titrate beta-tin as tolerated -Vent management as per pulmonary -Fluid management and electrolytes as per renal -Antibiotics as per infectious disease Consultation Date/Type/Reason Admit Date/Time May 06, 2018 at 17:38 Initial Consult Date 05/10/18 Type of Consult Cardiology Requesting Provider: ROLAND GIRON MD Date/Time of Note DATE: 05/26/18 TIME: 17:37 24 HR Interval Summary Free Text/Dictation Patient seen and examined Exam/Review of Systems Vital Signs Vitals Vital Signs Date Temp Pulse Resp B/P (MAP) Pulse Ox O2 O2 Flow FiO2 Time Delivery Rate 05/26/18 74 16:00 05/26/18 98.9 25 107/53 100 Mechanical 16:00 (71) Ventilator 05/26/18 30 15:30 Intake and Output 05/25/18 05/25/18 05/26/18 1515:00 23:00 07:00 IntakeIntake Total 896 ml 796 ml 796 ml OutputOutput Total 480 ml 2780 ml 540 ml BalanceBalance 416 ml -1984 ml 256 ml Exam Exam Opens her eyes to her name, not following commands Head: normocephalic ENMT: intubated Respiratory: other (Coarse breath sounds bilaterally, no wheezing) Cardiovascular: regular rate and rhythm (S1-S2 heard) Gastrointestinal: soft, non-tender, bowel sounds Extremities: edema Labs Result Diagram: 05/26/18 0447 05/26/18 0447 Results 24hrs Laboratory Tests Test 05/26/18 04:47 05/26/18 12:00 White Blood Count 8.9 Red Blood Count 2.86 L Hemoglobin 9.0 L Hematocrit 29.3 L Mean Corpuscular Volume 102.4 H Mean Corpuscular Hemoglobin 31.5 Mean Corpuscular Hemoglobin Concent 30.7 L Red Cell Distribution Width 19.1 H Platelet Count 319 Mean Platelet Volume 10.8 H Immature Granulocytes % 0.700 H Neutrophils % 75.7 Lymphocytes % 11.6 L Monocytes % 8.5 Eosinophils % 2.8 Basophils % 0.7 Nucleated Red Blood Cells % 0.0 Immature Granulocytes # 0.060 H Neutrophils # 6.8 Lymphocytes # 1.0 Monocytes # 0.8 Eosinophils # 0.3 Basophils # 0.1 Nucleated Red Blood Cells # 0.0 Sodium Level 140 Potassium Level 3.3 L Chloride Level 103 Carbon Dioxide Level 28 Anion Gap 9 Blood Urea Nitrogen 23 #H Creatinine 1.47 H Est Glomerular Filtrat Rate mL/min Glucose Level 103 Calcium Level 8.4 Phosphorus Level 2.8 Magnesium Level 1.6 L Blood Gas Specimen Source Blood arterial Arterial Blood Date Drawn 05/26/2018 12:20:00 PM Arterial Blood pH (Temp corrected) 7.381 Arterial Blood pCO2 (Temp correct) 46.8 H Arterial Blood pO2 (Temp corrected) 88.7 Arterial Blood HCO3 27.1 H Arterial Blood Base Excess 1.6 Arterial Blood Oxygen Saturation 95.9 Steven Test ACCEPTAB Arterial Blood Gas Puncture Site Right Radial Arterial Blood Carboxyhemoglobin 0.3 Arterial Blood Methemoglobin 0.3 Blood Gas A-a O2 Differential 70.2 H Oxyhemoglobin Percent 95.3 Blood Gas Temperature 37.0 Blood Gas Actual Respiration Rate 30 Blood Gas Modality VENT - CPAP FiO2 30.0 Blood Gas Low PEEP Setting 5.0 Blood Gas Pressure Support 10 Blood Gas Notified Whom TM Blood Gas Notified Time 05/26/2018 12:27:32 PM Medications Medications Current Medications IV Flush (NS 10 ml) 10 ml PRN IV ; Start 05/06/18 at 20:30 Ascorbic Acid (Vitamin C) 500 mg DAILY GTB Last administered on 05/26/18at 08:45; Admin Dose 500 MG; Start 05/07/18 at 09:00 Albuterol/ Ipratropium (Duoneb) 3 ml Q2H RESP THERAPY PRN HHN SHORTNESS OF BREATH; Start 05/06/18 at 23:30 Zinc Sulfate (Zinc Sulfate) 220 mg DAILY GTB Last administered on 05/26/18at 08:44; Admin Dose 220 MG; Start 05/07/18 at 09:00 Ondansetron HCl (Zofran Tab) 4 mg Q6H PRN GTB NAUSEA AND/OR VOMITING; Start 05/07/18 at 00:15 Multivitamins (Multivitamin) 30 ml DAILY GTB Last administered on 05/26/18 08:45; Admin Dose 30 ML; Start 05/07/18 at 09:00 Norepinephrine 250 ml @ 1.875 mls/ hr TITRATE IV Last administered on 05/08/18 13:33; Admin Dose 33.75 MLS/HR; Start 05/08/18 at 03:00 Phenylephrine HCl 80 mg/Dextrose 250 ml @ 18.75 mls/ hr TITRATE IV Last administered on 05/15/18 01:50; Admin Dose 5.63 MLS/HR; Start 05/09/18 at 12:30 Miscellaneous Information (Pending Santyl Order For Wound Care) This patient goldman... PRN PRN XX WOUND CARE; Start 05/09/18 at 17:00 Vancomycin HCl (Vancomycin Oral Syringe) 250 mg Q6 PO Last administered on 05/26/18 17:27; Admin Dose 250 MG; Start 05/12/18 at 00:00 Metronidazole 100 ml @ 100 mls/hr Q8 IVPB Last administered on 05/26/18 14:06; Admin Dose 100 MLS/HR; Start 05/11/18 at 20:00 Collagenase (Santyl) 1 applic DAILY TOP Last administered on 05/26/18 08:46; Admin Dose 1 APPLIC; Start 05/13/18 at 09:00 Propofol 100 ml @ 2.64 mls/hr Q12H IV Last administered on 05/21/18 07:19; Admin Dose 18.48 MLS/HR; Start 05/12/18 at 18:30 Albuterol (Ventolin Hfa) 4 puff Q6H RESP THERAPY INH Last administered on 05/26/18 14:00; Admin Dose 4 PUFF; Start 05/12/18 at 20:00 Ipratropium [place] (Atrovent Hfa) 4 puff Q6H RESP THERAPY INH Last administered on 05/26/18 14:00; Admin Dose 4 PUFF; Start 05/12/18 at 20:00 Heparin Sodium (Porcine) (Heparin (1000 Units/ml)) 2,800 unit AFTER DIALYSIS CATHETER Last administered on 05/23/18 22:55; Admin Dose 2,800 UNIT; Start 05/16/18 at 16:30 Furosemide (Lasix) 40 mg BID DIURETICS IV Last administered on 05/26/18 17:27; Admin Dose 40 MG; Start 05/19/18 at 09:00 Epoetin Zen-epbx (RETACRIT(esrd)) 20,000 unit Tu@1700 SC Last administered on 05/26/18 17:28; Admin Dose 20,000 UNIT; Start 05/19/18 at 17:00 Spironolactone (Aldactone) 50 mg DAILY GTB Last administered on 05/26/18 08:44; Admin Dose 50 MG; Start 05/21/18 at 09:00 Midazolam HCl 50 ml @ 1 mls/hr TITRATE IV Last administered on 05/26/18 05:57; Admin Dose 2 MLS/HR; Start 05/21/18 at 10:30 Amiodarone HCl (Cordarone) 200 mg TID PO Last administered on 05/26/18 14:06; Admin Dose 200 MG; Start 05/21/18 at 14:30 Metolazone (Zaroxolyn) 5 mg DAILY@0600 PO Last administered on 05/26/18 05:53; Admin Dose 5 MG; Start 05/22/18 at 09:00 Metoprolol Tartrate (Lopressor) 50 mg Q8 GTB Last administered on 05/26/18 14:06; Admin Dose 50 MG; Start 05/22/18 at 14:00 Famotidine (Pepcid) 20 mg DAILY PEG Last administered on 05/26/18 08:45; Admin Dose 20 MG; Start 05/23/18 at 09:00 Morphine Sulfate (morphine) 6 mg Q4H PRN PEG SEVERE PAIN LEVEL 7-10; Start 05/22/18 at 17:00 Cholestyramine Resin (Questran Light) 4 gm QID PO Last administered on 05/26/18 17:27; Admin Dose 4 GM; Start 05/26/18 at 09:00 Evangelista Scanlon DO May 26, 2018 17:38
[2018-05-27] VITALS (58 sets, daily range): BP systolic 80–144; BP diastolic 44–72; PULSE 77–97; RESP 18–32
[2018-05-27] MEDS: VANCOMYCIN HCL 250 MG/5ML POSYG PO SCH ×4 (01:24→20:43)
[2018-05-27] MEDS: ALBUTEROL HFA 8 GM INHALER INH SCH ×4 (01:27→19:50)
[2018-05-27] MEDS: IPRATROPIUM (HFA) 12.9 GM INHALER INH SCH ×4 (01:27→19:50)
[2018-05-27] MEDS: METOLAZONE 5 MG TAB PO SCH (05:00)
[2018-05-27] MEDS: METOPROLOL 50 MG TAB GTB SCH ×3 (05:01→21:56)
[2018-05-27] MEDS: PROPOFOL 100 ML IV SCH ×2 (05:01→15:12)
[2018-05-27] MEDS: FUROSEMIDE 40 MG INJ IV SCH ×2 (05:01→17:57)
[2018-05-27] MEDS: metroNIDAZOLE 500 MG/NS (PMX) 100 ML IVPB SCH ×3 (05:02→20:43)
[2018-05-27] MEDS ORDERED: ALBUMIN HUMAN 25% 100 ML IV PRN (07:30)
--- NOTE | 2018-05-27 08:13 | PN ---
DATE: 05/27/2018 SUBJECTIVE: The patient remains critically ill on full ventilatory support. The patient is pending possible trach placement. No other events noted. OBJECTIVE: VITAL SIGNS: Blood pressure is 130/68, respirations 28, pulse 83, temperature 98.6. HEENT: Head is normocephalic. NECK: Supple. HEART: Regular rate. LUNGS: Show diminished breath sounds at the base. ABDOMEN: Soft, nontender to palpation without rebound or guarding. EXTREMITIES: Negative for clubbing, cyanosis. Diffuse edema, positive anasarca. DERMATOLOGIC: No rashes. MUSCULOSKELETAL: No joint effusion. NEUROLOGIC: No change in exam. MEDICATIONS: The patient's medications have been reviewed. LABORATORY DATA: Reviewed. ASSESSMENT AND PLAN: 1. Nonoliguric acute kidney injury on top of chronic kidney disease with previous baseline creatinin e of around 2 to 2.5 mg/dL. Etiology of acute kidney injury is secondary to acute tubular necrosis d ue to shock, sepsis. The patient was initiated on hemodialysis for solute clearance and volume remov al. The patient continues to have intermittent dialysis. Urinary output has improved. The patient remains grossly volume overloaded. Plan is for another session of dialysis today for 3 hours 3k bath , calcium 2.5 ultrafiltration goal of 1 to 2 liters. 2. Volume overload secondary to acute kidney injury, chronic kidney disease, decompensated heart cem lure. Continue diuretic therapy. Continue ultrafiltration dialysis. 3. Hypokalemia and hypomagnesemia. Continue to monitor and replete as needed. 4. Anemia. Monitor hemoglobin and hematocrit levels. 5. Mineral bone disorder, monitor calcium and phosphorus levels. 6. Hypernatremia, improved. Continue free water flushes. 7. Ventilator-dependent respiratory failure. Vent settings and ABG was reviewed. Continue to monit or. Follow up with pulmonary. 8. Sepsis status post shock secondary to urinary tract infection, pneumonia. The patient is complet ing antibiotic course. 9. Tachyarrhythmia. Continue to monitor. Follow up with Cardiology. 10. Dysphagia. Continue tube feeding. 11. Acute encephalopathy. Etiology is toxic metabolic. 12. Lower extremity wounds. Continue wound care. Dictated By: JEANA FINE/TABATHA Conf#: [id number] DID#: [id number] CC: QUINTEN UMAÑA MD; ROLAND GIRON MD;*EndCC*
[2018-05-27] MEDS: COLLAGENASE 5 GM (UD JAR) TOP SCH (09:25)
[2018-05-27] MEDS: BALSAM PERU/CASTOR OIL 60 GM TUBE TOP SCH ×2 (09:25→20:47)
[2018-05-27] MEDS: MIDAZOLAM (DRIP) 50 mg/50 mL 50 ML IV SCH ×2 (09:38→21:00)
--- NOTE | 2018-05-27 09:45 | CONS ---
Assessment/Plan Assessment/Plan Assessment/Plan (Daily) Ventilator settings; AC of 20, tidal volume 500, PEEP of 5, 30% FiO2. Assessment and recommendations; 1. Patient with history of prior VDR F status post decannulation of tracheostomy approximately 2 months ago. Again for severe bilateral pneumonia with interval radiological improvement. 2. C. difficile colitis, currently on appropriate antimicrobial regimen. 3. Critical illness neuropathy/myopathy. 4. Failure to be weaned from ventilator despite multiple attempts. 5. Renal failure, on hemodialysis. 6. Anemia. 7. Sacral wound. 8. CHF. Continue current supportive care. Patient scheduled for redo tracheostomy. Overall prognosis remains poor due to multiple comorbidities. Consultation Date/Type/Reason Admit Date/Time May 06, 2018 at 17:38 Initial Consult Date 05/10/18 Type of Consult Pulmonary/critical care Requesting Provider: ROLAND GIRON MD Date/Time of Note DATE: 05/27/18 TIME: 09:42 24 HR Interval Summary Free Text/Dictation Patient's condition remains critical. Patient however has remained hemodynamically stable. General exam; elderly female, orally intubated, awake and appropriately responsive. Currently in no distress. Patient however exhibiting profound generalized weakness. Exam/Review of Systems Exam Vitals Vital Signs Date Temp Pulse Resp B/P (MAP) Pulse Ox O2 O2 Flow FiO2 Time Delivery Rate 05/27/18 84 08:50 05/27/18 30 08:00 05/27/18 26 138/68 100 Mask 06:35 (91) Mechanical Ventilator 05/27/18 98.6 04:00 Intake and Output 05/26/18 05/26/18 05/27/18 1515:00 23:00 07:00 IntakeIntake Total 734 ml 896 ml 775 ml OutputOutput Total 555 ml 480 ml 350 ml BalanceBalance 179 ml 416 ml 425 ml Exam HEENT exam; supple neck, no JVD. No lymphadenopathy. Midline trachea. No thyromegaly. Orally intubated. Patient's lower jaw is edentulous. Previous tracheostomy stoma has closed. Chest exam; diminished breath sounds bilaterally. S1-S2 audible, no murmurs. Regular rhythm. Abdomen exam; soft, nontender. No organomegaly. Nondistended. G-tube in place. Bowel sounds audible. Extremity exam; trace edema. Patient does have patchy ecchymosis. [employer] exam; patient is awake, responding appropriately, exhibiting profound generalized weakness. No obvious focal motor deficit. Results Result Diagram: 05/27/18 0447 05/27/18 0447 Results 24hrs Laboratory Tests Test 05/26/18 12:00 05/27/18 04:47 Blood Gas Specimen Source Blood arterial Arterial Blood Date Drawn 05/26/2018 12:20:00 PM Arterial Blood pH (Temp corrected) 7.381 Arterial Blood pCO2 (Temp correct) 46.8 H Arterial Blood pO2 (Temp corrected) 88.7 Arterial Blood HCO3 27.1 H Arterial Blood Base Excess 1.6 Arterial Blood Oxygen Saturation 95.9 Steven Test ACCEPTAB Arterial Blood Gas Puncture Site Right Radial Arterial Blood Carboxyhemoglobin 0.3 Arterial Blood Methemoglobin 0.3 Blood Gas A-a O2 Differential 70.2 H Oxyhemoglobin Percent 95.3 Blood Gas Temperature 37.0 Blood Gas Actual Respiration Rate 30 Blood Gas Modality VENT - CPAP FiO2 30.0 Blood Gas Low PEEP Setting 5.0 Blood Gas Pressure Support 10 Blood Gas Notified Whom TM Blood Gas Notified Time 05/26/2018 12:27:32 PM White Blood Count 11.2 #H Red Blood Count 2.97 L Hemoglobin 9.4 L Hematocrit 30.7 L Mean Corpuscular Volume 103.4 H Mean Corpuscular Hemoglobin 31.6 Mean Corpuscular Hemoglobin Concent 30.6 L Red Cell Distribution Width 18.9 H Platelet Count 375 Mean Platelet Volume 11.0 H Immature Granulocytes % 0.900 H Neutrophils % 77.7 H Lymphocytes % 9.7 L Monocytes % 7.9 Eosinophils % 3.5 Basophils % 0.3 Nucleated Red Blood Cells % 0.0 Immature Granulocytes # 0.100 H Neutrophils # 8.7 H Lymphocytes # 1.1 Monocytes # 0.9 Eosinophils # 0.4 Basophils # 0.0 Nucleated Red Blood Cells # 0.0 Sodium Level 138 Potassium Level 3.7 Chloride Level 106 Carbon Dioxide Level 24 Anion Gap 8 Blood Urea Nitrogen 27 H Creatinine 1.72 H Est Glomerular Filtrat Rate mL/min Glucose Level 95 Calcium Level 8.7 Phosphorus Level 3.2 Magnesium Level 1.9 Medications Medication Current Medications IV Flush (NS 10 ml) 10 ml PRN IV ; Start 05/06/18 at 20:30 Ascorbic Acid (Vitamin C) 500 mg DAILY GTB Last administered on 4/9/19at 08:45; Admin Dose 500 MG; Start 05/07/18 at 09:00 Albuterol/ Ipratropium (Duoneb) 3 ml Q2H RESP THERAPY PRN HHN SHORTNESS OF BREATH; Start 05/06/18 at 23:30 Zinc Sulfate (Zinc Sulfate) 220 mg DAILY GTB Last administered on 05/26/18 08:44; Admin Dose 220 MG; Start 05/07/18 at 09:00 Ondansetron HCl (Zofran Tab) 4 mg Q6H PRN GTB NAUSEA AND/OR VOMITING; Start 05/07/18 at 00:15 Multivitamins (Multivitamin) 30 ml DAILY GTB Last administered on 05/26/18 08:45; Admin Dose 30 ML; Start 05/07/18 at 09:00 Norepinephrine 250 ml @ 1.875 mls/ hr TITRATE IV Last administered on 05/08/18 13:33; Admin Dose 33.75 MLS/HR; Start 05/08/18 at 03:00 Phenylephrine HCl 80 mg/Dextrose 250 ml @ 18.75 mls/ hr TITRATE IV Last administered on 05/15/18 01:50; Admin Dose 5.63 MLS/HR; Start 05/09/18 at 12:30 Miscellaneous Information (Pending [facility] Order For Wound Care) This patient goldman... PRN PRN XX WOUND CARE; Start 05/09/18 at 17:00 Vancomycin HCl (Vancomycin Oral Syringe) 250 mg Q6 PO Last administered on 05/27/18 05:00; Admin Dose 250 MG; Start 05/12/18 at 00:00 Metronidazole 100 ml @ 100 mls/hr Q8 IVPB Last administered on 05/27/18 05:02; Admin Dose 100 MLS/HR; Start 05/11/18 at 20:00 Propofol 100 ml @ 2.64 mls/hr Q12H IV Last administered on 05/21/18 07:19; Admin Dose 18.48 MLS/HR; Start 05/12/18 at 18:30 Albuterol (Ventolin Hfa) 4 puff Q6H RESP THERAPY INH Last administered on 05/27/18 01:27; Admin Dose 4 PUFF; Start 05/12/18 at 20:00 Ipratropium [place] (Atrovent Hfa) 4 puff Q6H RESP THERAPY INH Last administered on 05/27/18 01:27; Admin Dose 4 PUFF; Start 05/12/18 at 20:00 Heparin Sodium (Porcine) (Heparin (1000 Units/ml)) 2,800 unit AFTER DIALYSIS CATHETER Last administered on 05/23/18 22:55; Admin Dose 2,800 UNIT; Start 05/16/18 at 16:30 Furosemide (Lasix) 40 mg BID DIURETICS IV Last administered on 05/27/18 05:01; Admin Dose 40 MG; Start 05/19/18 at 09:00 Epoetin Zen-epbx (RETACRIT(esrd)) 20,000 unit Tu@1700 SC Last administered on 05/26/18 17:28; Admin Dose 20,000 UNIT; Start 05/19/18 at 17:00 Spironolactone (Aldactone) 50 mg DAILY GTB Last administered on 05/26/18 08:44; Admin Dose 50 MG; Start 05/21/18 at 09:00 Midazolam HCl 50 ml @ 1 mls/hr TITRATE IV Last administered on 05/27/18 09:38; Admin Dose 5 MLS/HR; Start 05/21/18 at 10:30 Amiodarone HCl (Cordarone) 200 mg TID PO Last administered on 05/26/18 20:21; Admin Dose 200 MG; Start 05/21/18 at 14:30 Metolazone (Zaroxolyn) 5 mg DAILY@0600 PO Last administered on 05/27/18 05:00; Admin Dose 5 MG; Start 05/22/18 at 09:00 Metoprolol Tartrate (Lopressor) 50 mg Q8 GTB Last administered on 05/27/18 05:01; Admin Dose 50 MG; Start 05/22/18 at 14:00 Famotidine (Pepcid) 20 mg DAILY PEG Last administered on 05/26/18 08:45; Admin Dose 20 MG; Start 05/23/18 at 09:00 Morphine Sulfate (morphine) 6 mg Q4H PRN PEG SEVERE PAIN LEVEL 7-10; Start 05/22/18 at 17:00 Cholestyramine Resin (Questran Light) 4 gm QID PO Last administered on 05/26/18 20:21; Admin Dose 4 GM; Start 05/26/18 at 09:00 Albumin Human 100 ml @ 100 mls/hr DURING DIALYSIS PRN IV hypotension on hd; Start 05/27/18 at 07:30 ELOISA LAURA May 27, 2018 09:45
--- NOTE | 2018-05-27 09:57 | CONS ---
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 colonization of the airway by pseudomonas and ESBL+klebsiella - h/o possible, recurrent HCAP due to pseudomonas and ESBL+klebsiella - h/o recurrent HCAP due to MRSA and Enterobacter (culture of tracheal aspirate on 07/16/2017 that was collected at [facility]) . Pt took vancomycin and ceftazidime - h/o decannulation prior to admission - h/o tracheostomy on 06/11/2017 - h/o SIRS from UGIB in 2017 - h/o thoracentesis on 07/18/2017, transudative (protein <2, LDH 279) - h/o bleeding from the trach site in 2017 - h/o septic shock due to pneumonia, ARDS, bacteremia, fungemia in 2018 - h/o ARDS in 2018 - h/o smoking - COPD - h/o ILD per medical record - h/o PAF, improved # GI - C diff colitis, diagnosed on 05/11/2018 - h/o intermittent diarrhea, Pt had multiple negative C. diff tests at [facility] at OSH in the past; none was positive until 05/11/2018 - dysphagia - h/o PEG placement 06/13/2018 - protein calorie malnutrition - h/o coffee ground emesis/UGIB on 12/23/2017 due to deep ulceration of distal esophagus and gastritis on EGD 12/26/2017. No e/o H. pylori - h/o possible appendicitis on CT on 11/22/2017, Pt took ertapenem (11/24/2017- 12/01/2017) - h/o extensive adhesions lower abdominal and pelvis between small bowel to each other and to colon and to abdominal wall, anterior pelvic wall chronic abscess secondary to probably an old perforated diverticulitis, torsion of small bowel around these dense adhesion causing multiple obstructive points - h/o laparoscopic exploration and extensive lysis of adhesions and drainage of anterior pelvic wall abscess 09/16/2017. Cultures were negative, no e/o malignancy. Pt took pip/tazo (09/16/2017-09/26/2017) - h/o EGD and exchange of PEG on 09/01/2017 - h/o partial obstruction mid jejunum in L anterior central pelvis with suggestion of a 3 cm soft tissue mass on CT 08/28/2017 - h/o internal stomal deep ulcer behind the internal bumper, gastritis and esophagitis, Rodriguez's cannot be ruled out, per EGD with biopsy 07/23/2017 - h/o GIB s/p flex sig showed polyp; stool OB negative on 06/29/17 - h/o stool OB positive status - h/o SBO and ileus due to pain meds - h/o mildly elevated CEA # renal/ - anasarca - started on HD on 05/15/2018, via Kem in R groin - recurrent NATHAN on CKD - 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 Her strain of CRE was sensitive to colistin, Avycaz, and Vabomere but resistant to Zerbaxa (reported on 05/19/2018) - Hyponatremia - Hyperkalemia, now hypokalemia - Metabolic acidosis - adrenal insufficiency - h/o vaginal bleed in 2018 - h/o colonization of urinary tract by ESBL+klebsiella, VRE - h/o recurrent, symptomatic UTI due to carbapenem-resistant kleb (MDR strain) per urine culture 10/04/17, 10/09/17, 10/21/2017, P took colistin (10/09/2017-10/15), fosfomycin for carbapenemase-producing klebsiella and VRE on 10/25/2017 and 10/28/2017 - h/o funguria - h/o urinary retention # fungemia, bacteremia 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 improved. Probable manifestation of endocarditis. Pt declined MRI on 08/06/2017 - h/o infection of R toes due to pseudomonas. coagulase negative Staph likely a colonizer - h/o intertrigo of the groin, resolved with nystatin powder - h/o scabies, locally crusted lesion over L scapula, s/p permethrin cream and pGT ivermectin on 08/11/2017, 08/12/2017, 08/19/2017. Repeat skin scraping on 08/21/2017 was negative for scabies # psych, neuro - acute toxic metabolic encephalopathy - decreased hearing b/l - h/o critical illness polyneuropathy - anxiety/depression, bipolar d/o, seen by Psychiatry in the past - chronic pain syndrome - h/o medical non-compliance: she would refuse her medications, treatment and straight catheterization in 2018 # hematological, vascular - chronic anemia requiring blood transfusion intermittently - Macrocytic anemia - 3.1 cm AAA on imaging - PVD Recommendations: - continue pGT vancomycin (05/11/2018-) and IV metronidazole (05/11/2018-) for C diff colitis. Pt completed meropenem for HCAP (05/13/2018-05/19/2018) Plan was d/w JAYANT Snyder and with Dr. Doyle. Thank you Total critical care time spent: 35 min. Consultation Date/Type/Reason Admit Date/Time May 06, 2018 at 17:38 Initial Consult Date 05/07/18 Type of Consult ID Requesting Provider: ROLAND GIRON MD Date/Time of Note DATE: 05/27/18 TIME: 09:56 24 HR Interval Summary Free Text/Dictation The patient is unable to contribute to ROS d/t intubated, the patient's eyes are open but she did not attempt to respond to questions. Per d/w RN The patient is still having large amounts of diarrhea. Has remained afebrile. WBC uptick to 11.2 noted. Has a tentative plan for redo of trach, not yet scheduled. Exam/Review of Systems Exam Vitals Vital Signs Date Temp Pulse Resp B/P (MAP) Pulse Ox O2 O2 Flow FiO2 Time Delivery Rate 05/27/18 84 08:50 05/27/18 30 08:00 05/27/18 26 138/68 100 Mask 06:35 (91) Mechanical Ventilator 05/27/18 98.6 04:00 Intake and Output 05/26/18 05/26/18 05/27/18 1515:00 23:00 07:00 IntakeIntake Total 734 ml 896 ml 775 ml OutputOutput Total 555 ml 480 ml 350 ml BalanceBalance 179 ml 416 ml 425 ml Allergies Coded Allergies shellfish derived (Unverified Allergy, Unknown, 05/06/18) . Exam Constitutional: well developed, non-verbal, frail, obese, other (chronically debilitated, orally intubated, eyes open, eye tracked but did not attempt to communicate.) Head: normocephalic, atraumatic Eyes: nl conjunctiva, nl lids ENMT: nl external ears & nose, intubated (via ETT) Neck: other (old trach site with with dressing which is clean dry and intact) Respiratory: diminished breath sounds, other (on ventilator support) Cardiovascular: regular rate and rhythm, nl pulses Gastrointestinal: soft, non-tender, bowel sounds, other (PEG site is c/d/i, TF connected); No distended Genitourinary - Female: other (Garza in place with yellow urine; HD catheter in R groin c/d/i) Musculoskeletal: other (eschar on toes; bilateral foot drop) Extremities: edema (all four extremities) Neurological: other (sedated but opened eyes with verbal and tactile stimuli, +tracking, and falls easily back to sleep; no commands) Skin: nl turgor, dry, other (wounds- nurses notes and photos reviewed in chart) Results Result Diagram: 05/27/18 0447 05/27/18 0447 Results 24hrs Laboratory Tests Test 05/26/18 12:00 05/27/18 04:47 Blood Gas Specimen Source Blood arterial Arterial Blood Date Drawn 05/26/2018 12:20:00 PM Arterial Blood pH (Temp corrected) 7.381 Arterial Blood pCO2 (Temp correct) 46.8 H Arterial Blood pO2 (Temp corrected) 88.7 Arterial Blood HCO3 27.1 H Arterial Blood Base Excess 1.6 Arterial Blood Oxygen Saturation 95.9 Steven Test ACCEPTAB Arterial Blood Gas Puncture Site Right Radial Arterial Blood Carboxyhemoglobin 0.3 Arterial Blood Methemoglobin 0.3 Blood Gas A-a O2 Differential 70.2 H Oxyhemoglobin Percent 95.3 Blood Gas Temperature 37.0 Blood Gas Actual Respiration Rate 30 Blood Gas Modality VENT - CPAP FiO2 30.0 Blood Gas Low PEEP Setting 5.0 Blood Gas Pressure Support 10 Blood Gas Notified Whom TM Blood Gas Notified Time 05/26/2018 12:27:32 PM White Blood Count 11.2 #H Red Blood Count 2.97 L Hemoglobin 9.4 L Hematocrit 30.7 L Mean Corpuscular Volume 103.4 H Mean Corpuscular Hemoglobin 31.6 Mean Corpuscular Hemoglobin Concent 30.6 L Red Cell Distribution Width 18.9 H Platelet Count 375 Mean Platelet Volume 11.0 H Immature Granulocytes % 0.900 H Neutrophils % 77.7 H Lymphocytes % 9.7 L Monocytes % 7.9 Eosinophils % 3.5 Basophils % 0.3 Nucleated Red Blood Cells % 0.0 Immature Granulocytes # 0.100 H Neutrophils # 8.7 H Lymphocytes # 1.1 Monocytes # 0.9 Eosinophils # 0.4 Basophils # 0.0 Nucleated Red Blood Cells # 0.0 Sodium Level 138 Potassium Level 3.7 Chloride Level 106 Carbon Dioxide Level 24 Anion Gap 8 Blood Urea Nitrogen 27 H Creatinine 1.72 H Est Glomerular Filtrat Rate mL/min Glucose Level 95 Calcium Level 8.7 Phosphorus Level 3.2 Magnesium Level 1.9 Medications Medication Current Medications IV Flush (NS 10 ml) 10 ml PRN IV ; Start 05/06/18 at 20:30 Ascorbic Acid (Vitamin C) 500 mg DAILY GTB Last administered on 05/26/18at 08:45; Admin Dose 500 MG; Start 05/07/18 at 09:00 Albuterol/ Ipratropium (Duoneb) 3 ml Q2H RESP THERAPY PRN HHN SHORTNESS OF BREATH; Start 05/06/18 at 23:30 Zinc Sulfate (Zinc Sulfate) 220 mg DAILY GTB Last administered on 05/26/18at 08:44; Admin Dose 220 MG; Start 05/07/18 at 09:00 Ondansetron HCl (Zofran Tab) 4 mg Q6H PRN GTB NAUSEA AND/OR VOMITING; Start 05/07/18 at 00:15 Multivitamins (Multivitamin) 30 ml DAILY GTB Last administered on 05/26/18 08:45; Admin Dose 30 ML; Start 05/07/18 at 09:00 Norepinephrine 250 ml @ 1.875 mls/ hr TITRATE IV Last administered on 05/08/18 13:33; Admin Dose 33.75 MLS/HR; Start 05/08/18 at 03:00 Phenylephrine HCl 80 mg/Dextrose 250 ml @ 18.75 mls/ hr TITRATE IV Last administered on 05/15/18 01:50; Admin Dose 5.63 MLS/HR; Start 05/09/18 at 12:30 [facility]isc[facility] This patient goldman... PRN PRN XX WOUND CARE; Start 05/09/18 at 17:00 Vancomycin HCl (Vancomycin Oral Syringe) 250 mg Q6 PO Last administered on 05/27/18 05:00; Admin Dose 250 MG; Start 05/12/18 at 00:00 Metronidazole 100 ml @ 100 mls/hr Q8 IVPB Last administered on 05/27/18 05:02; Admin Dose 100 MLS/HR; Start 05/11/18 at 20:00 Propofol 100 ml @ 2.64 mls/hr Q12H IV Last administered on 05/21/18 07:19; Admin Dose 18.48 MLS/HR; Start 05/12/18 at 18:30 Albuterol (Ventolin Hfa) 4 puff Q6H RESP THERAPY INH Last administered on 05/27/18 01:27; Admin Dose 4 PUFF; Start 05/12/18 at 20:00 Ipratropium [place] (Atrovent Hfa) 4 puff Q6H RESP THERAPY INH Last administered on 05/27/18:27; Admin Dose 4 PUFF; Start 05/12/18 at 20:00 Heparin Sodium (Porcine) (Heparin (1000 Units/ml)) 2,800 unit AFTER DIALYSIS CATHETER Last administered on 05/23/18 22:55; Admin Dose 2,800 UNIT; Start 05/16/18 at 16:30 Furosemide (Lasix) 40 mg BID DIURETICS IV Last administered on 05/27/18 05:01; Admin Dose 40 MG; Start 05/19/18 at 09:00 Epoetin Zen-epbx (RETACRIT(esrd)) 20,000 unit Tu@1700 SC Last administered on 05/26/18 17:28; Admin Dose 20,000 UNIT; Start 05/19/18 at 17:00 Spironolactone (Aldactone) 50 mg DAILY GTB Last administered on 05/26/18 08:44; Admin Dose 50 MG; Start 05/21/18 at 09:00 Midazolam HCl 50 ml @ 1 mls/hr TITRATE IV Last administered on 05/27/18 09:38; Admin Dose 5 MLS/HR; Start 05/21/18 at 10:30 Amiodarone HCl (Cordarone) 200 mg TID PO Last administered on 05/26/18 20:21; Admin Dose 200 MG; Start 05/21/18 at 14:30 Metolazone (Zaroxolyn) 5 mg DAILY@0600 PO Last administered on 05/27/18 05:00; Admin Dose 5 MG; Start 05/22/18 at 09:00 Metoprolol Tartrate (Lopressor) 50 mg Q8 GTB Last administered on 05/27/18 05:01; Admin Dose 50 MG; Start 05/22/18 at 14:00 Famotidine (Pepcid) 20 mg DAILY PEG Last administered on 05/26/18 08:45; Admin Dose 20 MG; Start 05/23/18 at 09:00 Morphine Sulfate (morphine) 6 mg Q4H PRN PEG SEVERE PAIN LEVEL 7-10; Start 05/22/18 at 17:00 Cholestyramine Resin (Questran Light) 4 gm QID PO Last administered on 05/26/18 20:21; Admin Dose 4 GM; Start 05/26/18 at 09:00 Albumin Human 100 ml @ 100 mls/hr DURING DIALYSIS PRN IV hypotension on hd; Start 05/27/18 at 07:30 KENA MÉNDEZ NP May 27, 2018 09:57
[2018-05-27] MEDS: HEPARIN 1000 UNITS/ML 10 ML INJ CATHETER SCH (10:34)
[2018-05-27] MEDS: morphine LIQ (10 MG/5 ML) CUP PEG PRN (10:35)
[2018-05-27] MEDS: CHOLESTYRAMINE (LIGHT) 4 GM PACKET PO SCH ×2 (10:35→17:37)
[2018-05-27] MEDS: ASCORBIC ACID 500 MG TAB GTB SCH (10:35)
[2018-05-27] MEDS: AMIODARONE 200 MG TAB PO SCH ×3 (10:36→20:45)
[2018-05-27] MEDS: SPIRONOLACTONE 25 MG TAB GTB SCH (10:36)
[2018-05-27] MEDS: FAMOTIDINE 20 MG TAB PEG SCH (10:36)
[2018-05-27] MEDS: MULTIVITAMINS 30 ML CUP GTB SCH (10:36)
[2018-05-27] MEDS: ZINC SULFATE 220 MG CAP GTB SCH (10:36)
--- NOTE | 2018-05-27 12:51 | CONS ---
Assessment/Plan Assessment/Plan Hospital Course (Demo Recall) Septic as well as hemorrhagic shock-improving Acute respiratory failure status post intubation Acute blood loss anemia Septic shock and hemorrhagic shock History of respiratory failure status post decannulation Preserved ejection fraction echocardiogram 05/10/2018 Paroxysmal atrial fibrillation, currently sinus rhythm Acute kidney injury -Patient overall remains in sinus rhythm, continue p.o. amiodarone with plans of titrating down over the next 1-2 days, titrate beta-tin as tolerated -Vent management as per pulmonary -Fluid management and electrolytes as per renal -Antibiotics as per infectious disease Consultation Date/Type/Reason Admit Date/Time May 06, 2018 at 17:38 Initial Consult Date 05/10/18 Type of Consult Cardiology Requesting Provider: ROLAND GIRON MD Date/Time of Note DATE: 05/27/18 TIME: 12:50 24 HR Interval Summary Free Text/Dictation Patient seen and examined Exam/Review of Systems Vital Signs Vitals Vital Signs Date Temp Pulse Resp B/P (MAP) Pulse Ox O2 O2 Flow FiO2 Time Delivery Rate 05/27/18 97 12:00 05/27/18 24 124/63 99 11:00 (83) 05/27/18 Mechanical 10:00 Ventilator 05/27/18 30 08:00 05/27/18 98.4 08:00 Intake and Output 05/26/18 05/26/18 05/27/18 1515:00 23:00 07:00 IntakeIntake Total 734 ml 896 ml 780 ml OutputOutput Total 555 ml 480 ml 350 ml BalanceBalance 179 ml 416 ml 430 ml Exam Exam Opens her eyes to her name, not following commands, no apparent distress Head: normocephalic ENMT: intubated Respiratory: other (Coarse breath sounds bilaterally, no wheezing) Cardiovascular: regular rate and rhythm (S1-S2 heard) Gastrointestinal: soft, non-tender, bowel sounds Extremities: edema Labs Result Diagram: 05/27/187 05/27/18446 Results 24hrs Laboratory Tests Test 05/27/18 04:47 White Blood Count 11.2 #H Red Blood Count 2.97 L Hemoglobin 9.4 L Hematocrit 30.7 L Mean Corpuscular Volume 103.4 H Mean Corpuscular Hemoglobin 31.6 Mean Corpuscular Hemoglobin Concent 30.6 L Red Cell Distribution Width 18.9 H Platelet Count 375 Mean Platelet Volume 11.0 H Immature Granulocytes % 0.900 H Neutrophils % 77.7 H Lymphocytes % 9.7 L Monocytes % 7.9 Eosinophils % 3.5 Basophils % 0.3 Nucleated Red Blood Cells % 0.0 Immature Granulocytes # 0.100 H Neutrophils # 8.7 H Lymphocytes # 1.1 Monocytes # 0.9 Eosinophils # 0.4 Basophils # 0.0 Nucleated Red Blood Cells # 0.0 Sodium Level 138 Potassium Level 3.7 Chloride Level 106 Carbon Dioxide Level 24 Anion Gap 8 Blood Urea Nitrogen 27 H Creatinine 1.72 H Est Glomerular Filtrat Rate mL/min Glucose Level 95 Calcium Level 8.7 Phosphorus Level 3.2 Magnesium Level 1.9 Medications Medications Current Medications IV Flush (NS 10 ml) 10 ml PRN IV ; Start 05/06/18 at 20:30 Ascorbic Acid (Vitamin C) 500 mg DAILY GTB Last administered on 05/27/18at 10:35; Admin Dose 500 MG; Start 05/07/18 at 09:00 Albuterol/ Ipratropium (Duoneb) 3 ml Q2H RESP THERAPY PRN HHN SHORTNESS OF BREATH; Start 05/06/18 at 23:30 Zinc Sulfate (Zinc Sulfate) 220 mg DAILY GTB Last administered on 05/27/18 10:36; Admin Dose 220 MG; Start 05/07/18 at 09:00 Ondansetron HCl (Zofran Tab) 4 mg Q6H PRN GTB NAUSEA AND/OR VOMITING; Start 05/07/18 at 00:15 Multivitamins (Multivitamin) 30 ml DAILY GTB Last administered on 05/27/18at 10:36; Admin Dose 30 ML; Start 05/07/18 at 09:00 Norepinephrine 250 ml @ 1.875 mls/ hr TITRATE IV Last administered on 05/08/18at 13:33; Admin Dose 33.75 MLS/HR; Start 05/08/18 at 03:00 Phenylephrine HCl 80 mg/Dextrose 250 ml @ 18.75 mls/ hr TITRATE IV Last administered on 05/15/18at 01:50; Admin Dose 5.63 MLS/HR; Start 05/09/18 at 12:30 [facility] This patient goldman... PRN PRN XX WOUND CARE; Start 05/09/18 at 17:00 Vancomycin HCl (Vancomycin Oral Syringe) 250 mg Q6 PO Last administered on 05/27/18 12:07; Admin Dose 250 MG; Start 05/12/18 at 00:00 Metronidazole 100 ml @ 100 mls/hr Q8 IVPB Last administered on 05/27/18 05:02; Admin Dose 100 MLS/HR; Start 05/11/18 at 20:00 Propofol 100 ml @ 2.64 mls/hr Q12H IV Last administered on 05/21/18 07:19; Admin Dose 18.48 MLS/HR; Start 05/12/18 at 18:30 Albuterol (Ventolin Hfa) 4 puff Q6H RESP THERAPY INH Last administered on 05/27/18 01:27; Admin Dose 4 PUFF; Start 05/12/18 at 20:00 Ipratropium [place] (Atrovent Hfa) 4 puff Q6H RESP THERAPY INH Last administered on 05/27/18 01:27; Admin Dose 4 PUFF; Start 05/12/18 at 20:00 Heparin Sodium (Porcine) (Heparin (1000 Units/ml)) 2,800 unit AFTER DIALYSIS CATHETER Last administered on 05/27/18 10:34; Admin Dose 2,800 UNIT; Start 05/16/18 at 16:30 Furosemide (Lasix) 40 mg BID DIURETICS IV Last administered on 05/27/18 05:01; Admin Dose 40 MG; Start 05/19/18 at 09:00 Epoetin Zen-epbx (RETACRIT(esrd)) 20,000 unit Tu@1700 SC Last administered on 05/26/18 17:28; Admin Dose 20,000 UNIT; Start 05/19/18 at 17:00 Spironolactone (Aldactone) 50 mg DAILY GTB Last administered on 05/27/18 10:36; Admin Dose 50 MG; Start 05/21/18 at 09:00 Midazolam HCl 50 ml @ 1 mls/hr TITRATE IV Last administered on 05/27/18 09:38; Admin Dose 5 MLS/HR; Start 05/21/18 at 10:30 Amiodarone HCl (Cordarone) 200 mg TID PO Last administered on 05/27/18 10:36; Admin Dose 200 MG; Start 05/21/18 at 14:30 Metolazone (Zaroxolyn) 5 mg DAILY@0600 PO Last administered on 05/27/18at 05:00; Admin Dose 5 MG; Start 05/22/18 at 09:00 Metoprolol Tartrate (Lopressor) 50 mg Q8 GTB Last administered on 05/27/18at 05:01; Admin Dose 50 MG; Start 05/22/18 at 14:00 Famotidine (Pepcid) 20 mg DAILY PEG Last administered on 05/27/18at 10:36; Admin Dose 20 MG; Start 05/23/18 at 09:00 Morphine Sulfate (morphine) 6 mg Q4H PRN PEG SEVERE PAIN LEVEL 7-10 Last ad ministered on 05/27/18at 10:35; Admin Dose 6 MG; Start 05/22/18 at 17:00 Albumin Human 100 ml @ 100 mls/hr DURING DIALYSIS PRN IV hypotension on hd; Start 05/27/18 at 07:30 Cholestyramine Resin (Questran Light) 4 gm 0600,1200,1800,2300 PO ; Start 05/27/18 at 18:00 Evangelista Scanlon DO May 27, 2018 12:51
--- NOTE | 2018-05-27 14:55 | PN ---
Date/Time of Note Date/Time of Note DATE: 05/27/18 TIME: 14:51 Assessment/Plan VTE Prophylaxis Risk score (from Ns)>0 risk: 13 SCD applied (from [facility]): Yes Pharmacological prophylaxis: NA/contraindicated Pharm contraindication: bleeding Lines/Catheters [facility] Type [facility]from [facility] Juan Cath Urinary Cath still in place: Yes Reason Cath still needed: urinary retention Assessment/Plan Hospital Course Patient unable to tolerate ventilator weaning today, Dr. Black is asked to see patient in ENT consultation, plan for tracheostomy on Friday. Patient is on Versed drip for sedation, on vent support. Per RN pt still has diarrhea. Assessment/Plan -Atrial fibrillation was rapid ventricular response, s/p amiodarone drip. Rate is well controlled on p.o. amiodarone and metoprolol. Dr. Scanlon is following in cardiology consultation. -Septic shock secondary to urinary tract infection, anterior neck soft tissue i nfection, and C. difficile colitis, resolving. Continue antibiotics per ID. Dr. Black is following in infection disease consultation. -Acute respiratory failure requiring intubation and ventilatory support. Dr. Lambert is following in pulmonology consultation. -Acute kidney injury on chronic kidney disease. Started on HD this admission. Dr. Mckeon is following in nephrology consultation. -Anemia of chronic inflammation, stool for OB is negative, status post blood tra nsfusion. Continue Epogen. -Metabolic acidosis, resolved. -Acute diastolic congestive heart failure. -Paroxysmal atrial fibrillation -COPD -Dysphagia with PEG. -G-tube mild malfunction, changed by GI Dr. Carolina is following in gastroenterology consultation. -Obesity Critical care time spent is 30 minutes. Further recommendations based on clinical course. Plan of care discussed with Dr. Eisenberg. Result Diagram: 05/27/1844605/27/187 Results 24hrs Laboratory Tests Test 05/27/18 04:47 White Blood Count 11.2 #H Red Blood Count 2.97 L Hemoglobin 9.4 L Hematocrit 30.7 L Mean Corpuscular Volume 103.4 H Mean Corpuscular Hemoglobin 31.6 Mean Corpuscular Hemoglobin Concent 30.6 L Red Cell Distribution Width 18.9 H Platelet Count 375 Mean Platelet Volume 11.0 H Immature Granulocytes % 0.900 H Neutrophils % 77.7 H Lymphocytes % 9.7 L Monocytes % 7.9 Eosinophils % 3.5 Basophils % 0.3 Nucleated Red Blood Cells % 0.0 Immature Granulocytes # 0.100 H Neutrophils # 8.7 H Lymphocytes # 1.1 Monocytes # 0.9 Eosinophils # 0.4 Basophils # 0.0 Nucleated Red Blood Cells # 0.0 Sodium Level 138 Potassium Level 3.7 Chloride Level 106 Carbon Dioxide Level 24 Anion Gap 8 Blood Urea Nitrogen 27 H Creatinine 1.72 H Est Glomerular Filtrat Rate mL/min Glucose Level 95 Calcium Level 8.7 Phosphorus Level 3.2 Magnesium Level 1.9 Exam/Review of Systems Exam Vitals Vital Signs Date Temp Pulse Resp B/P (MAP) Pulse Ox O2 O2 Flow FiO2 Time Delivery Rate 05/27/18 88 14:15 05/27/18 24 124/63 99 11:00 (83) 05/27/18 Mechanical 10:00 Ventilator 05/27/18 30 08:00 05/27/18 98.4 08:00 Intake and Output 05/26/18 05/26/18 05/27/18 1515:00 23:00 07:00 IntakeIntake Total 734 ml 896 ml 780 ml OutputOutput Total 555 ml 480 ml 350 ml BalanceBalance 179 ml 416 ml 430 ml Exam Constitutional: frail, orally intubated Respiratory: diminished breath sounds Cardiovascular: irregular rate and rhythm Gastrointestinal: soft, tender, other (G-tube) Musculoskeletal: nl extremities to inspection Extremities: normal pulses Neurological: sedated Results Results 24hrs Laboratory Tests Test 05/27/18 04:47 White Blood Count 11.2 #H Red Blood Count 2.97 L Hemoglobin 9.4 L Hematocrit 30.7 L Mean Corpuscular Volume 103.4 H Mean Corpuscular Hemoglobin 31.6 Mean Corpuscular Hemoglobin Concent 30.6 L Red Cell Distribution Width 18.9 H Platelet Count 375 Mean Platelet Volume 11.0 H Immature Granulocytes % 0.900 H Neutrophils % 77.7 H Lymphocytes % 9.7 L Monocytes % 7.9 Eosinophils % 3.5 Basophils % 0.3 Nucleated Red Blood Cells % 0.0 Immature Granulocytes # 0.100 H Neutrophils # 8.7 H Lymphocytes # 1.1 Monocytes # 0.9 Eosinophils # 0.4 Basophils # 0.0 Nucleated Red Blood Cells # 0.0 Sodium Level 138 Potassium Level 3.7 Chloride Level 106 Carbon Dioxide Level 24 Anion Gap 8 Blood Urea Nitrogen 27 H Creatinine 1.72 H Est Glomerular Filtrat Rate mL/min Glucose Level 95 Calcium Level 8.7 Phosphorus Level 3.2 Magnesium Level 1.9 Medications Medication Current Medications IV Flush (NS 10 ml) 10 ml PRN IV ; Start 05/06/18 at 20:30 Ascorbic Acid (Vitamin C) 500 mg DAILY GTB Last administered on 05/27/18at 1 0:35; Admin Dose 500 MG; Start 05/07/18 at 09:00 Albuterol/ Ipratropium (Duoneb) 3 ml Q2H RESP THERAPY PRN HHN SHORTNESS OF BREATH; Start 05/06/18 at 23:30 Zinc Sulfate (Zinc Sulfate) 220 mg DAILY GTB Last administered on 05/27/18 10:36; Admin Dose 220 MG; Start 05/07/18 at 09:00 Ondansetron HCl (Zofran Tab) 4 mg Q6H PRN GTB NAUSEA AND/OR VOMITING; Start 05/07/18 at 00:15 Multivitamins (Multivitamin) 30 ml DAILY GTB Last administered on 05/27/18at 10:36; Admin Dose 30 ML; Start 05/07/18 at 09:00 Norepinephrine 250 ml @ 1.875 mls/ hr TITRATE IV Last administered on 05/08/18at 13:33; Admin Dose 33.75 MLS/HR; Start 05/08/18 at 03:00 Phenylephrine HCl 80 mg/Dextrose 250 ml @ 18.75 mls/ hr TITRATE IV Last administered on 05/15/18at 01:50; Admin Dose 5.63 MLS/HR; Start 05/09/18 at 12:30 [facility] This patient goldman... PRN PRN XX WOUND CARE; Start 05/09/18 at 17:00 Vancomycin HCl (Vancomycin Oral Syringe) 250 mg Q6 PO Last administered on 05/27/18at 12:07; Admin Dose 250 MG; Start 05/12/18 at 00:00 Metronidazole 100 ml @ 100 mls/hr Q8 IVPB Last administered on 05/27/18at 14:43; Admin Dose 100 MLS/HR; Start 05/11/18 at 20:00 Propofol 100 ml @ 2.64 mls/hr Q12H IV Last administered on 05/21/18 07:19; Admin Dose 18.48 MLS/HR; Start 05/12/18 at 18:30 Albuterol (Ventolin Hfa) 4 puff Q6H RESP THERAPY INH Last administered on 05/27 13:41; Admin Dose 4 PUFF; Start 05/12/18 at 20:00 Ipratropium [place] (Atrovent Hfa) 4 puff Q6H RESP THERAPY INH Last administered on 05/27/18 13:41; Admin Dose 4 PUFF; Start 05/12/18 at 20:00 Heparin Sodium (Porcine) (Heparin (1000 Units/ml)) 2,800 unit AFTER DIALYSIS CATHETER Last administered on 05/27/18 10:34; Admin Dose 2,800 UNIT; Start 05/16/18 at 16:30 Furosemide (Lasix) 40 mg BID DIURETICS IV Last administered on 05/27/18 05:01; Admin Dose 40 MG; Start 05/19/18 at 09:00 Epoetin Zen-epbx (RETACRIT(esrd)) 20,000 unit Tu@1700 SC Last administered on 05/26/18 17:28; Admin Dose 20,000 UNIT; Start 05/19/18 at 17:00 Spironolactone (Aldactone) 50 mg DAILY GTB Last administered on 05/27/18 10:36; Admin Dose 50 MG; Start 05/21/18 at 09:00 Midazolam HCl 50 ml @ 1 mls/hr TITRATE IV Last administered on 05/27/18 09:38; Admin Dose 5 MLS/HR; Start 05/21/18 at 10:30 Amiodarone HCl (Cordarone) 200 mg TID PO Last administered on 05/27/18 14:42; Admin Dose 200 MG; Start 05/21/18 at 14:30 Metolazone (Zaroxolyn) 5 mg DAILY@0600 PO Last administered on 05/27/18 05:00; Admin Dose 5 MG; Start 05/22/18 at 09:00 Metoprolol Tartrate (Lopressor) 50 mg Q8 GTB Last administered on 05/27/18 14:43; Admin Dose 50 MG; Start 05/22/18 at 14:00 Famotidine (Pepcid) 20 mg DAILY PEG Last administered on 05/27/18at 10:36; Admin Dose 20 MG; Start 05/23/18 at 09:00 Morphine Sulfate (morphine) 6 mg Q4H PRN PEG SEVERE PAIN LEVEL 7-10 Last administered on 05/27/18at 10:35; Admin Dose 6 MG; Start 05/22/18 at 17:00 Albumin Human 100 ml @ 100 mls/hr DURING DIALYSIS PRN IV hypotension on hd; St art 05/27/18 at 07:30 Cholestyramine Resin (Questran Light) 4 gm 0600,1200,1800,2300 PO ; Start 05/27 at 18:00 GRISELDA DENNIS May 27, 2018 14:55
[2018-05-27] MEDS: NORepinephrine 8MG/250 ML (PMX 250 ML IV SCH (21:05)
[2018-05-28] VITALS (51 sets, daily range): BP systolic 92–147; BP diastolic 46–80; PULSE 73–92; RESP 12–31
[2018-05-28] MEDS: CHOLESTYRAMINE (LIGHT) 4 GM PACKET PO SCH ×6 (00:09→23:14)
[2018-05-28] MEDS: VANCOMYCIN HCL 250 MG/5ML POSYG PO SCH ×5 (00:09→23:13)
[2018-05-28] MEDS: IPRATROPIUM (HFA) 12.9 GM INHALER INH SCH ×4 (01:52→19:24)
[2018-05-28] MEDS: ALBUTEROL HFA 8 GM INHALER INH SCH ×4 (01:52→19:24)
[2018-05-28] MEDS: metroNIDAZOLE 500 MG/NS (PMX) 100 ML IVPB SCH ×3 (05:45→20:19)
[2018-05-28] MEDS: FUROSEMIDE 40 MG INJ IV SCH (05:48)
[2018-05-28] MEDS: METOLAZONE 5 MG TAB PO SCH (05:48)
[2018-05-28] MEDS: METOPROLOL 50 MG TAB GTB SCH ×2 (05:49→13:53)
[2018-05-28] MEDS: MIDAZOLAM (DRIP) 50 mg/50 mL 50 ML IV SCH ×2 (05:59→14:50)
[2018-05-28] MEDS: PROPOFOL 100 ML IV SCH ×2 (06:00→14:45)
[2018-05-28] MEDS ORDERED: POTASSIUM CHLORIDE 20 MEQ POWDER FOR ORAL SOLN GTB ONE (08:00)
--- NOTE | 2018-05-28 08:52 | PN ---
DATE: 05/28/2018 SUBJECTIVE: The patient remains critically ill on pressor support. The patient had hemodialysis yes terday with 3 liters removed. No reports of hemoptysis, hematemesis or hematochezia. OBJECTIVE: VITAL SIGNS: Blood pressure is 100/51, respirations 25, pulse 77, temperature 98.6. HEENT: Head is normocephalic. NECK: Supple. HEART: Regular rate. LUNGS: Show diminished breath sounds at the base. ABDOMEN: Soft, nontender to palpation without rebound or guarding. EXTREMITIES: Negative for clubbing, cyanosis. Positive edema. DERMATOLOGIC: No rashes. MUSCULOSKELETAL: No joint effusion. NEUROLOGIC: No change in exam. MEDICATIONS: Have been reviewed. LABORATORY DATA: Has been reviewed. IMAGING STUDIES: Have been reviewed. ASSESSMENT AND PLAN: 1. Nonoliguric acute kidney injury on top of chronic kidney disease with previous baseline creatinin e around 2 to 2.5 mg/dL. Etiology of acute kidney injury is secondary to acute tubular necrosis due to shock, sepsis. The patient is currently on hemodialysis for solute clearance and volume removal. The patient had hemodialysis yesterday, tolerated well. Anticipate next hemodialysis tomorrow for v olume removal. Continue to monitor closely. 2. Volume overload secondary to acute kidney injury, chronic kidney disease, heart failure. Continu e ultrafiltration with hemodialysis. We will hold diuretic therapy today as the patient is hypotensi ve. 3. Hypokalemia, hypomagnesemia. Continue to monitor and replete. 4. Anemia. Monitor hemoglobin and hematocrit levels. Will give Epogen as needed. 5. Mineral bone disorder. Monitor calcium and phosphorus levels. 6. Hypernatremia, improved. Continue free water flushes. 7. Ventilator-dependent respiratory failure. Vent settings and ABG was reviewed. Continue to monit or. Follow up with pulmonary. 8. Sepsis, status post shock. The patient is on pressor support again. Continue to monitor. Wean off if possible. Continue antibiotic therapy. 9. Tachyarrhythmia. Continue to monitor. Follow up with cardiology. 10. Dysphagia. Continue tube feeding. 11. Acute encephalopathy. Etiology is toxic metabolic. 12. Lower extremity wounds. Continue wound care. Dictated By: JEANA FINE/NTS Conf#: [id number] DID#: [id number] CC: ROLAND GIRON MD;*[facility]*
--- NOTE | 2018-05-28 08:53 | CONS ---
Assessment/Plan Assessment/Plan Assessment/Plan (Daily) Ventilator setting; AC of 20, tidal volume 500, PEEP of 5, 30% FiO2. Patient is currently on Versed 5 mg/h. Assessment recommendations; 1. Patient with history of VDR F status post decannulation of tracheostomy about 2 and half months ago admitted again for severe bilateral pneumonia, patient has failed multiple weaning attempts from ventilator. 2. Critical illness neuropathy/myopathy. 3. C. difficile colitis. 4. Renal failure, on hemodialysis. 5. Chronic anemia. 6. Sacral wound. Growing multiple organisms. 7. History of cardiac arrhythmia. Continue current supportive care. Patient scheduled for redo tracheostomy tomorrow. Overall prognosis though remains poor. Consultation Date/Type/Reason Admit Date/Time May 06, 2018 at 17:38 Initial Consult Date 05/10/18 Type of Consult Pulmonary/critical care Requesting Provider: ROLAND GIRON MD Date/Time of Note DATE: 05/28/18 TIME: 08:51 24 HR Interval Summary Free Text/Dictation Patient's condition is stable. Has remained hemodynamically stable. General exam; elderly female, orally intubated, arousable, mildly sedated. Exam/Review of Systems Exam Vitals Vital Signs Date Temp Pulse Resp B/P (MAP) Pulse Ox O2 O2 Flow FiO2 Time Delivery Rate 05/28/18 30 08:00 05/28/18 77 25 100/51 99 Mechanical 06:00 (67) Ventilator 05/28/18 99.5 04:00 Intake and Output 05/27/18 05/27/18 05/28/18 1515:00 23:00 07:00 IntakeIntake Total 720 ml 756.875 ml 717.50 ml OutputOutput Total 4100 ml 575 ml 380 ml BalanceBalance -3380 ml 181.875 ml 337.50 ml Exam H EENT exam; supple neck, no JVD. No lymphadenopathy. Midline trachea. No thyromegaly. Orally intubated. Patient has carious teeth. Pupils are small bilaterally. No neck masses. Chest exam; diminished breath sounds bilaterally. S1-S2 audible, no murmurs. Regular rhythm. Abdomen exam; soft, G-tube in place. No organomegaly. Bowel sounds audible. Extremity exam; peripheral edema. Patient does have multiple ecchymosis. FAT [employer] exam; patient is arousable but sedated mildly. Results Result Diagram: 05/28/18 0645 05/28/18 0434 Results 24hrs Laboratory Tests Test 05/28/18 04:34 05/28/18 06:45 Sodium Level 134 L Potassium Level 3.4 L Chloride Level 101 Carbon Dioxide Level 21 Anion Gap 12 Blood Urea Nitrogen 32 H Creatinine 1.85 H Est Glomerular Filtrat Rate mL/min Glucose Level 94 Calcium Level 8.6 Phosphorus Level 3.6 Magnesium Level 1.7 White Blood Count 9.4 Red Blood Count 2.65 L Hemoglobin 8.4 L Hematocrit 27.2 L Mean Corpuscular Volume 102.6 H Mean Corpuscular Hemoglobin 31.7 Mean Corpuscular Hemoglobin Concent 30.9 L Red Cell Distribution Width 18.6 H Platelet Count 378 Mean Platelet Volume 10.4 Immature Granulocytes % 1.400 H Neutrophils % 68.6 Lymphocytes % 14.4 L Monocytes % 10.2 Eosinophils % 4.9 Basophils % 0.5 Nucleated Red Blood Cells % 0.0 Immature Granulocytes # 0.130 H Neutrophils # 6.4 Lymphocytes # 1.4 Monocytes # 1.0 H Eosinophils # 0.5 Basophils # 0.1 Nucleated Red Blood Cells # 0.0 Medications Medication Current Medications IV Flush (NS 10 ml) 10 ml PRN IV ; Start 05/06/18 at 20:30 Ascorbic Acid (Vitamin C) 500 mg DAILY GTB Last administered on 05/27/18at 10:35 ; Admin Dose 500 MG; Start 05/07/18 at 09:00 Albuterol/ Ipratropium (Duoneb) 3 ml Q2H RESP THERAPY PRN HHN SHORTNESS OF BREATH; Start 05/06/18 at 23:30 Zinc Sulfate (Zinc Sulfate) 220 mg DAILY GTB Last administered on 05/27/18at 10:36; Admin Dose 220 MG; Start 05/07/18 at 09:00 Ondansetron HCl (Zofran Tab) 4 mg Q6H PRN GTB NAUSEA AND/OR VOMITING; Start 05/07/18 at 00:15 Multivitamins (Multivitamin) 30 ml DAILY GTB Last administered on 05/27/18at 10:36; Admin Dose 30 ML; Start 05/07/18 at 09:00 Norepinephrine 250 ml @ 1.875 mls/ hr TITRATE IV Last administered on 4/10/19at 21:05; Admin Dose 9.375 MLS/HR; Start 05/08/18 at 03:00 Phenylephrine HCl 80 mg/Dextrose 250 ml @ 18.75 mls/ hr TITRATE IV Last administered on 05/15/18 01:50; Admin Dose 5.63 MLS/HR; Start 05/09/18 at 12:30 Miscellaneous Information (Pending [facility] Order For Wound Care) This patient goldman... PRN PRN XX WOUND CARE; Start 05/09/18 at 17:00 Vancomycin HCl (Vancomycin Oral Syringe) 250 mg Q6 PO Last administered on 05/28/18 05:48; Admin Dose 250 MG; Start 05/12/18 at 00:00 Metronidazole 100 ml @ 100 mls/hr Q8 IVPB Last administered on 05/28/18 05:45; Admin Dose 100 MLS/HR; Start 05/11/18 at 20:00 Propofol 100 ml @ 2.64 mls/hr Q12H IV Last administered on 05/21/18 07:19; Admin Dose 18.48 MLS/HR; Start 05/12/18 at 18:30 Albuterol (Ventolin Hfa) 4 puff Q6H RESP THERAPY INH Last administered on 05/28/18 08:12; Admin Dose 4 PUFF; Start 05/12/18 at 20:00 Ipratropium [place] (Atrovent Hfa) 4 puff Q6H RESP THERAPY INH Last administered on 05/28/18 08:13; Admin Dose 4 PUFF; Start 05/12/18 at 20:00 Heparin Sodium (Porcine) (Heparin (1000 Units/ml)) 2,800 unit AFTER DIALYSIS CATHETER Last administered on 05/27/18 10:34; Admin Dose 2,800 UNIT; Start 05/16/18 at 16:30 Furosemide (Lasix) 40 mg BID DIURETICS IV Last administered on 05/28/18 05:48; Admin Dose 40 MG; Start 05/19/18 at 09:00; Status Hold Epoetin Zen-epbx (RETACRIT(esrd)) 20,000 unit Tu@1700 SC Last administered on 05/26/18 17:28; Admin Dose 20,000 UNIT; Start 05/19/18 at 17:00 Spironolactone (Aldactone) 50 mg DAILY GTB Last administered on 05/27/18 10:36; Admin Dose 50 MG; Start 05/21/18 at 09:00 Midazolam HCl 50 ml @ 1 mls/hr TITRATE IV Last administered on 05/28/18 05:59; Admin Dose 5 MLS/HR; Start 05/21/18 at 10:30 Amiodarone HCl (Cordarone) 200 mg TID PO Last administered on 05/27/18 20:45; Admin Dose 200 MG; Start 05/21/18 at 14:30 Metolazone (Zaroxolyn) 5 mg DAILY@0600 PO Last administered on 05/28/18 05:48; Admin Dose 5 MG; Start 05/22/18 at 09:00; Status Hold Metoprolol Tartrate (Lopressor) 50 mg Q8 GTB Last administered on 05/27/18 14:43; Admin Dose 50 MG; Start 05/22/18 at 14:00 Famotidine (Pepcid) 20 mg DAILY PEG Last administered on 05/27/18 10:36; Admin Dose 20 MG; Start 05/23/18 at 09:00 Morphine Sulfate (morphine) 6 mg Q4H PRN PEG SEVERE PAIN LEVEL 7-10 Last administered on 05/27/18 10:35; Admin Dose 6 MG; Start 05/22/18 at 17:00 Albumin Human 100 ml @ 100 mls/hr DURING DIALYSIS PRN IV hypotension on hd; Start 05/27/18 at 07:30 Cholestyramine Resin (Questran Light) 4 gm 0600,1200,1800,2300 PO Last administered on 05/28/18 05:48; Admin Dose 4 GM; Start 05/27/18 at 18:00 ELOISA LAURA May 28, 2018 08:53
[2018-05-28] MEDS: ASCORBIC ACID 500 MG TAB GTB SCH (09:27)
[2018-05-28] MEDS: FAMOTIDINE 20 MG TAB PEG SCH (09:27)
[2018-05-28] MEDS: SPIRONOLACTONE 25 MG TAB GTB SCH (09:28)
[2018-05-28] MEDS: AMIODARONE 200 MG TAB PO SCH ×3 (09:28→20:19)
[2018-05-28] MEDS: ZINC SULFATE 220 MG CAP GTB SCH (09:31)
[2018-05-28] MEDS: BALSAM PERU/CASTOR OIL 60 GM TUBE TOP SCH ×2 (09:31→20:20)
[2018-05-28] MEDS: MULTIVITAMINS 30 ML CUP GTB SCH (10:41)
--- NOTE | 2018-05-28 12:13 | CONS ---
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 colonization of the airway by pseudomonas and ESBL+klebsiella - h/o possible, recurrent HCAP due to pseudomonas and ESBL+klebsiella - h/o recurrent HCAP due to MRSA and Enterobacter (culture of tracheal aspirate on 07/16/2017 that was collected at [facility]) . Pt took vancomycin and ceftazidime - h/o decannulation prior to admission - h/o tracheostomy on 06/11/2017 - h/o SIRS from UGIB in 2017 - h/o thoracentesis on 07/18/2017, transudative (protein <2, LDH 279) - h/o bleeding from the trach site in 2017 - h/o septic shock due to pneumonia, ARDS, bacteremia, fungemia in 2018 - h/o ARDS in 2018 - h/o smoking - COPD - h/o ILD per medical record - h/o PAF, improved # GI - C diff colitis, diagnosed on 05/11/2018 - h/o intermittent diarrhea, Pt had multiple negative C. diff tests at [facility] at [facility] in the past; none was positive until 05/11/2018 - dysphagia - h/o PEG placement 06/13/2018 - protein calorie malnutrition - h/o coffee ground emesis/UGIB on 12/23/2017 due to deep ulceration of distal esophagus and gastritis on EGD 12/26/2017. No e/o H. pylori - h/o possible appendicitis on CT on 11/22/2017, Pt took ertapenem (11/24/2017- 12/01/2017) - h/o extensive adhesions lower abdominal and pelvis between small bowel to each other and to colon and to abdominal wall, anterior pelvic wall chronic abscess secondary to probably an old perforated diverticulitis, torsion of small bowel around these dense adhesion causing multiple obstructive points - h/o laparoscopic exploration and extensive lysis of adhesions and drainage of anterior pelvic wall abscess 09/16/2017. Cultures were negative, no e/o malignancy. Pt took pip/tazo (09/16/2017-09/26/2017) - h/o EGD and exchange of PEG on 09/01/2017 - h/o partial obstruction mid jejunum in L anterior central pelvis with suggestion of a 3 cm soft tissue mass on CT 08/28/2017 - h/o internal stomal deep ulcer behind the internal bumper, gastritis and esophagitis, Rodriguez's cannot be ruled out, per EGD with biopsy 07/23/2017 - h/o GIB s/p flex sig showed polyp; stool OB negative on 06/29/17 - h/o stool OB positive status - h/o SBO and ileus due to pain meds - h/o mildly elevated CEA # renal/ - anasarca - started on HD on 05/15/2018, via Kem in R groin - recurrent NATHAN on CKD - 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 Her strain of CRE was sensitive to colistin, Avycaz, and Vabomere but resistant to Zerbaxa (reported on 05/19/2018) - Hyponatremia - Hyperkalemia, now hypokalemia - Metabolic acidosis - adrenal insufficiency - h/o vaginal bleed in 2018 - h/o colonization of urinary tract by ESBL+klebsiella, VRE - h/o recurrent, symptomatic UTI due to carbapenem-resistant kleb (MDR strain) per urine culture 10/04/17, 10/09/17, 10/21/2017, P took colistin (10/09/2017-10/15), fosfomycin for carbapenemase-producing klebsiella and VRE on 10/25/2017 and 10/28/2017 - h/o funguria - h/o urinary retention # fungemia, bacteremia 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 improved. Probable manifestation of endocarditis. Pt declined MRI on 08/06/2017 - h/o infection of R toes due to pseudomonas. coagulase negative Staph likely a colonizer - h/o intertrigo of the groin, resolved with nystatin powder - h/o scabies, locally crusted lesion over L scapula, s/p permethrin cream and pGT ivermectin on 08/11/2017, 08/12/2017, 08/19/2017. Repeat skin scraping on 08/21/2017 was negative for scabies # psych, neuro - acute toxic metabolic encephalopathy - decreased hearing b/l - h/o critical illness polyneuropathy - anxiety/depression, bipolar d/o, seen by Psychiatry in the past - chronic pain syndrome - h/o medical non-compliance: she would refuse her medications, treatment and straight catheterization in 2018 # hematological, vascular - chronic anemia requiring blood transfusion intermittently - Macrocytic anemia - 3.1 cm AAA on imaging - PVD Recommendations: - continue pGT vancomycin (05/11/2018-) and IV metronidazole (05/11/2018-) for C diff colitis. Pt completed meropenem for HCAP (05/13/2018-05/19/2018)-- will likely d/c iv flagyl tmrw as diarrhea abates Consultation Date/Type/Reason Admit Date/Time May 06, 2018 at 17:38 Initial Consult Date 05/10/18 Type of Consult ID Requesting Provider: ROLAND GIRON MD Date/Time of Note DATE: 05/28/18 TIME: 12:11 Exam/Review of Systems Exam Vitals Vital Signs Date Temp Pulse Resp B/P (MAP) Pulse Ox O2 O2 Flow FiO2 Time Delivery Rate 05/28/18 86 27 106/57 100 Mechanical 11:00 (73) Ventilator 05/28/18 99.9 08:00 05/28/18 30 08:00 Intake and Output 05/27/18 05/27/18 05/28/18 1515:00 23:00 07:00 IntakeIntake Total 720 ml 756.875 ml 817.50 ml OutputOutput Total 4100 ml 575 ml 380 ml BalanceBalance -3380 ml 181.875 ml 437.50 ml Constitutional: alert, oriented, well developed, other (intubated) Head: normocephalic, atraumatic Eyes: EOMI Respiratory: clear to auscultation Cardiovascular: regular rate and rhythm Gastrointestinal: soft Neurological: MECHANICAL CAD DRAFTER II-XII intact Results Result Diagram: 05/28/18 0645 05/28/18 0434 Results 24hrs Laboratory Tests Test 05/28/18 04:34 05/28/18 06:45 Sodium Level 134 L Potassium Level 3.4 L Chloride Level 101 Carbon Dioxide Level 21 Anion Gap 12 Blood Urea Nitrogen 32 H Creatinine 1.85 H Est Glomerular Filtrat Rate mL/min Glucose Level 94 Calcium Level 8.6 Phosphorus Level 3.6 Magnesium Level 1.7 White Blood Count 9.4 Red Blood Count 2.65 L Hemoglobin 8.4 L Hematocrit 27.2 L Mean Corpuscular Volume 102.6 H Mean Corpuscular Hemoglobin 31.7 Mean Corpuscular Hemoglobin Concent 30.9 L Red Cell Distribution Width 18.6 H Platelet Count 378 Mean Platelet Volume 10.4 Immature Granulocytes % 1.400 H Neutrophils % 68.6 Lymphocytes % 14.4 L Monocytes % 10.2 Eosinophils % 4.9 Basophils % 0.5 Nucleated Red Blood Cells % 0.0 Immature Granulocytes # 0.130 H Neutrophils # 6.4 Lymphocytes # 1.4 Monocytes # 1.0 H Eosinophils # 0.5 Basophils # 0.1 Nucleated Red Blood Cells # 0.0 Medications Medication Current Medications IV Flush (NS 10 ml) 10 ml PRN IV ; Start 05/06/18 at 20:30 Ascorbic Acid (Vitamin C) 500 mg DAILY GTB Last administered on 05/28/18at 09:27; Admin Dose 500 MG; Start 05/07/18 at 09:00 Albuterol/ Ipratropium (Duoneb) 3 ml Q2H RESP THERAPY PRN HHN SHORTNESS OF BREATH; Start 05/06/18 at 23:30 Zinc Sulfate (Zinc Sulfate) 220 mg DAILY GTB Last administered on 05/28/18 09:31; Admin Dose 220 MG; Start 05/07/18 at 09:00 Ondansetron HCl (Zofran Tab) 4 mg Q6H PRN GTB NAUSEA AND/OR VOMITING; Start 05/07/18 at 00:15 Multivitamins (Multivitamin) 30 ml DAILY GTB Last administered on 05/28/18 10:41; Admin Dose 30 ML; Start 05/07/18 at 09:00 Norepinephrine 250 ml @ 1.875 mls/ hr TITRATE IV Last administered on 05/27/18 21:05; Admin Dose 9.375 MLS/HR; Start 05/08/18 at 03:00 Phenylephrine HCl 80 mg/Dextrose 250 ml @ 18.75 mls/ hr TITRATE IV Last administered on 05/15/18 01:50; Admin Dose 5.63 MLS/HR; Start 05/09/18 at 12:30 Miscellaneous Information (Pending [facility] Order For Wound Care) This patient goldman... PRN PRN XX WOUND CARE; Start 05/09/18 at 17:00 Vancomycin HCl (Vancomycin Oral Syringe) 250 mg Q6 PO Last administered on 05/28/18 11:26; Admin Dose 250 MG; Start 05/12/18 at 00:00 Metronidazole 100 ml @ 100 mls/hr Q8 IVPB Last administered on 05/28/18 05:45; Admin Dose 100 MLS/HR; Start 05/11/18 at 20:00 Propofol 100 ml @ 2.64 mls/hr Q12H IV Last administered on 05/21/18 07:19; Admin Dose 18.48 MLS/HR; Start 05/12/18 at 18:30 Albuterol (Ventolin Hfa) 4 puff Q6H RESP THERAPY INH Last administered on 05/28/18 08:12; Admin Dose 4 PUFF; Start 05/12/18 at 20:00 Ipratropium [place] (Atrovent Hfa) 4 puff Q6H RESP THERAPY INH Last administered on 05/28/18 08:13; Admin Dose 4 PUFF; Start 05/12/18 at 20:00 Heparin Sodium (Porcine) (Heparin (1000 Units/ml)) 2,800 unit AFTER DIALYSIS CATHETER Last administered on 05/27/18 10:34; Admin Dose 2,800 UNIT; Start 05/16/18 at 16:30 Furosemide (Lasix) 40 mg BID DIURETICS IV Last administered on 05/28/18 05:48; Admin Dose 40 MG; Start 05/19/18 at 09:00; Status Hold Epoetin Zen-epbx (RETACRIT(esrd)) 20,000 unit Tu@1700 SC Last administered on 05/26/18 17:28; Admin Dose 20,000 UNIT; Start 05/19/18 at 17:00 Spironolactone (Aldactone) 50 mg DAILY GTB Last administered on 05/28/18 09:28; Admin Dose 50 MG; Start 05/21/18 at 09:00 Midazolam HCl 50 ml @ 1 mls/hr TITRATE IV Last administered on 05/28/18 05:59; Admin Dose 5 MLS/HR; Start 05/21/18 at 10:30 Amiodarone HCl (Cordarone) 200 mg TID PO Last administered on 05/28/18 09:28; Admin Dose 200 MG; Start 05/21/18 at 14:30 Metolazone (Zaroxolyn) 5 mg DAILY@0600 PO Last administered on 05/28/18 05:48; Admin Dose 5 MG; Start 05/22/18 at 09:00; Status Hold Metoprolol Tartrate (Lopressor) 50 mg Q8 GTB Last administered on 05/27/18 14:43; Admin Dose 50 MG; Start 05/22/18 at 14:00 Famotidine (Pepcid) 20 mg DAILY PEG Last administered on 05/28/18 09:27; Admin Dose 20 MG; Start 05/23/18 at 09:00 Morphine Sulfate (morphine) 6 mg Q4H PRN PEG SEVERE PAIN LEVEL 7-10 Last administered on 05/27/18 10:35; Admin Dose 6 MG; Start 05/22/18 at 17:00 Albumin Human 100 ml @ 100 mls/hr DURING DIALYSIS PRN IV hypotension on hd; Start 05/27/18 at 07:30 Cholestyramine Resin (Questran Light) 4 gm 0600,1200,1800,2300 PO Last administered on 05/28/18 05:48; Admin Dose 4 GM; Start 05/27/18 at 18:00 MANN VALDEZ MD May 28, 2018 12:13
--- NOTE | 2018-05-28 16:54 | CONS ---
Assessment/Plan Assessment/Plan Hospital Course (Demo Recall) Septic as well as hemorrhagic shock-improving Acute respiratory failure status post intubation Acute blood loss anemia Septic shock and hemorrhagic shock History of respiratory failure status post decannulation Preserved ejection fraction echocardiogram 05/10/2018 Paroxysmal atrial fibrillation, currently sinus rhythm Acute kidney injury -Patient with hypotension appears was started briefly on IV pressor -Blood pressure is improving currently off IV pressor. Decreased dose of Lopressor -Vent management as per pulmonary -Fluid management and electrolytes as per renal -Antibiotics as per infectious disease Consultation Date/Type/Reason Admit Date/Time May 06, 2018 at 17:38 Initial Consult Date 05/10/18 Type of Consult Cardiology Requesting Provider: ROLAND GIRON MD Date/Time of Note DATE: 05/28/18 TIME: 16:52 24 HR Interval Summary Free Text/Dictation Patient seen and examined Subjective hx not possible: pt critical status Exam/Review of Systems Vital Signs Vitals Vital Signs Date Temp Pulse Resp B/P (MAP) Pulse Ox O2 O2 Flow FiO2 Time Delivery Rate 05/28/18 75 24 103/52 100 Mechanical 15:00 (69) Ventilator 05/28/18 99.5 12:00 05/28/18 30 11:30 Intake and Output 05/27/18 05/27/18 05/28/18 1515:00 23:00 07:00 IntakeIntake Total 720 ml 756.875 ml 817.50 ml OutputOutput Total 4100 ml 575 ml 380 ml BalanceBalance -3380 ml 181.875 ml 437.50 ml Exam Exam Sleeping, no response to verbal stimuli, no apparent distress Head: normocephalic ENMT: intubated Respiratory: other (Coarse breath sounds bilaterally, no wheezing) Cardiovascular: regular rate and rhythm (S1-S2 heard) Gastrointestinal: soft, non-tender, bowel sounds Extremities: edema Labs Result Diagram: 05/28/18 0645 05/28/18 0434 Results 24hrs Laboratory Tests Test 05/28/18 04:34 05/28/18 06:45 Sodium Level 134 L Potassium Level 3.4 L Chloride Level 101 Carbon Dioxide Level 21 Anion Gap 12 Blood Urea Nitrogen 32 H Creatinine 1.85 H Est Glomerular Filtrat Rate mL/min Glucose Level 94 Calcium Level 8.6 Phosphorus Level 3.6 Magnesium Level 1.7 White Blood Count 9.4 Red Blood Count 2.65 L Hemoglobin 8.4 L Hematocrit 27.2 L Mean Corpuscular Volume 102.6 H Mean Corpuscular Hemoglobin 31.7 Mean Corpuscular Hemoglobin Concent 30.9 L Red Cell Distribution Width 18.6 H Platelet Count 378 Mean Platelet Volume 10.4 Immature Granulocytes % 1.400 H Neutrophils % 68.6 Lymphocytes % 14.4 L Monocytes % 10.2 Eosinophils % 4.9 Basophils % 0.5 Nucleated Red Blood Cells % 0.0 Immature Granulocytes # 0.130 H Neutrophils # 6.4 Lymphocytes # 1.4 Monocytes # 1.0 H Eosinophils # 0.5 Basophils # 0.1 Nucleated Red Blood Cells # 0.0 Medications Medications Current Medications IV Flush (NS 10 ml) 10 ml PRN IV ; Start 05/06/18 at 20:30 Ascorbic Acid (Vitamin C) 500 mg DAILY GTB Last administered on 05/28/18at 09:27; Admin Dose 500 MG; Start 05/07/18 at 09:00 Albuterol/ Ipratropium (Duoneb) 3 ml Q2H RESP THERAPY PRN HHN SHORTNESS OF BREATH; Start 05/06/18 at 23:30 Zinc Sulfate (Zinc Sulfate) 220 mg DAILY GTB Last administered on 05/28/18at 09:31; Admin Dose 220 MG; Start 05/07/18 at 09:00 Ondansetron HCl (Zofran Tab) 4 mg Q6H PRN GTB NAUSEA AND/OR VOMITING; Start 05/07/18 at 00:15 Multivitamins (Multivitamin) 30 ml DAILY GTB Last administered on 05/28/18at 10:41; Admin Dose 30 ML; Start 05/07/18 at 09:00 Norepinephrine 250 ml @ 1.875 mls/ hr TITRATE IV Last administered on 05/27/18at 21:05; Admin Dose 9.375 MLS/HR; Start 05/08/18 at 03:00 Phenylephrine HCl 80 mg/Dextrose 250 ml @ 18.75 mls/ hr TITRATE IV Last administered on 05/15/18at 01:50; Admin Dose 5.63 MLS/HR; Start 05/09/18 at 12:30 Miscellaneous Information ([facility]) This patient goldman... PRN PRN XX WOUND CARE; Start 05/09/18 at 17:00 Vancomycin HCl (Vancomycin Oral Syringe) 250 mg Q6 PO Last administered on 05/28/18 11:26; Admin Dose 250 MG; Start 05/12/18 at 00:00 Metronidazole 100 ml @ 100 mls/hr Q8 IVPB Last administered on 05/28/18 14:37; Admin Dose 100 MLS/HR; Start 05/11/18 at 20:00 Propofol 100 ml @ 2.64 mls/hr Q12H IV Last administered on 05/21/18 07:19; Admin Dose 18.48 MLS/HR; Start 05/12/18 at 18:30 Albuterol (Ventolin Hfa) 4 puff Q6H RESP THERAPY INH Last administered on 05/28/18 14:16; Admin Dose 4 PUFF; Start 05/12/18 at 20:00 Ipratropium [place] (Atrovent Hfa) 4 puff Q6H RESP THERAPY INH Last administered on 05/28/18 14:16; Admin Dose 4 PUFF; Start 05/12/18 at 20:00 Heparin Sodium (Porcine) (Heparin (1000 Units/ml)) 2,800 unit AFTER DIALYSIS CATHETER Last administered on 05/27/18 10:34; Admin Dose 2,800 UNIT; Start 05/16/18 at 16:30 Furosemide (Lasix) 40 mg BID DIURETICS IV Last administered on 05/28/18 05:48; Admin Dose 40 MG; Start 05/19/18 at 09:00; Status Hold Epoetin Zen-epbx (RETACRIT(esrd)) 20,000 unit Tu@1700 SC Last administered on 05/26/18 17:28; Admin Dose 20,000 UNIT; Start 05/19/18 at 17:00 Spironolactone (Aldactone) 50 mg DAILY GTB Last administered on 05/28/18 09:28; Admin Dose 50 MG; Start 05/21/18 at 09:00 Midazolam HCl 50 ml @ 1 mls/hr TITRATE IV Last administered on 05/28/18 14:50; Admin Dose 5 MLS/HR; Start 05/21/18 at 10:30 Amiodarone HCl (Cordarone) 200 mg TID PO Last administered on 05/28/18 14:36; Admin Dose 200 MG; Start 05/21/18 at 14:30 Metolazone (Zaroxolyn) 5 mg DAILY@0600 PO Last administered on 05/28/18at 05:48; Admin Dose 5 MG; Start 05/22/18 at 09:00; Status Hold Metoprolol Tartrate (Lopressor) 50 mg Q8 GTB Last administered on 05/27/18at 14:43; Admin Dose 50 MG; Start 05/22/18 at 14:00 Famotidine (Pepcid) 20 mg DAILY PEG Last administered on 05/28/18at 09:27; Admin Dose 20 MG; Start 05/23/18 at 09:00 Morphine Sulfate (morphine) 6 mg Q4H PRN PEG SEVERE PAIN LEVEL 7-10 Last administered on 05/27/18at 10:35; Admin Dose 6 MG; Start 05/22/18 at 17:00 Albumin Human 100 ml @ 100 mls/hr DURING DIALYSIS PRN IV hypotension on hd; Start 05/27/18 at 07:30 Cholestyramine Resin (Questran Light) 4 gm 0600,1200,1800,2300 PO Last administered on 05/28/18at 05:48; Admin Dose 4 GM; Start 05/27/18 at 18:00 Evangelista Scanlon DO May 28, 2018 16:54
--- NOTE | 2018-05-28 17:28 | PN ---
Date/Time of Note Date/Time of Note DATE: 05/28/18 TIME: 17:16 Assessment/Plan VTE Prophylaxis Risk score (from Ns)>0 risk: 13 SCD applied (from Ns): Yes Pharmacological prophylaxis: heparin Lines/Catheters IV Catheter Type (from Nrs): PICC Line Central line still needed: Yes Urinary Cath still in place: Yes Reason Cath still needed: urinary retention Assessment/Plan Hospital Course Patient continues on vent, Versed gtt, is asked to see patient in ENT consultation, plan for tracheostomy tomorrow by Dr. Black. Assessment/Plan -Atrial fibrillation was rapid ventricular response, s/p amiodarone drip. Rate is well controlled on p.o. amiodarone and metoprolol. Dr. Scanlon is following in cardiology consultation. -Septic shock secondary to urinary tract infection, anterior neck soft tissue infection, and C. difficile colitis, resolving. Continue antibiotics per ID. Dr. Black is following in infection disease consultation. -Acute respiratory failure requiring intubation and ventilatory support. Dr. Lambert is following in pulmonology consultation. -Acute kidney injury on chronic kidney disease. Started on HD this admission. Dr. Mckeon is following in nephrology consultation. -Anemia of chronic inflammation, stool for OB is negative, status post blood transfusion. Continue Epogen. -Metabolic acidosis, resolved. -Acute diastolic congestive heart failure. -Paroxysmal atrial fibrillation -COPD -Dysphagia with PEG. -G-tube mild malfunction, changed by GI Dr. Carolina is following in gastroenterology consultation. -Obesity Critical care time spent is 30 minutes. Further recommendations based on clinical course. Plan of care discussed with Dr. Eisenberg. Result Diagram: 05/28/18 0645 05/28/18 0434 Results 24hrs Laboratory Tests Test 05/28/18 04:34 05/28/18 06:45 Sodium Level 134 L Potassium Level 3.4 L Chloride Level 101 Carbon Dioxide Level 21 Anion Gap 12 Blood Urea Nitrogen 32 H Creatinine 1.85 H Est Glomerular Filtrat Rate mL/min Glucose Level 94 Calcium Level 8.6 Phosphorus Level 3.6 Magnesium Level 1.7 White Blood Count 9.4 Red Blood Count 2.65 L Hemoglobin 8.4 L Hematocrit 27.2 L Mean Corpuscular Volume 102.6 H Mean Corpuscular Hemoglobin 31.7 Mean Corpuscular Hemoglobin Concent 30.9 L Red Cell Distribution Width 18.6 H Platelet Count 378 Mean Platelet Volume 10.4 Immature Granulocytes % 1.400 H Neutrophils % 68.6 Lymphocytes % 14.4 L Monocytes % 10.2 Eosinophils % 4.9 Basophils % 0.5 Nucleated Red Blood Cells % 0.0 Immature Granulocytes # 0.130 H Neutrophils # 6.4 Lymphocytes # 1.4 Monocytes # 1.0 H Eosinophils # 0.5 Basophils # 0.1 Nucleated Red Blood Cells # 0.0 Exam/Review of Systems Exam Vitals Vital Signs Date Temp Pulse Resp B/P (MAP) Pulse Ox O2 O2 Flow FiO2 Time Delivery Rate 05/28/18 81 16:00 05/28/18 24 103/52 100 Mechanical 15:00 (69) Ventilator 05/28/18 99.5 12:00 05/28/18 30 11:30 Intake and Output 05/27/18 05/27/18 05/28/18 1515:00 23:00 07:00 IntakeIntake Total 720 ml 756.875 ml 817.50 ml OutputOutput Total 4100 ml 575 ml 380 ml BalanceBalance -3380 ml 181.875 ml 437.50 ml Exam Constitutional: frail, orally intubated Respiratory: diminished breath sounds Cardiovascular: irregular rate and rhythm Gastrointestinal: soft, tender, other (G-tube) Musculoskeletal: nl extremities to inspection Extremities: normal pulses Neurological: sedated Results Results 24hrs Laboratory Tests Test 05/28/18 04:34 05/28/18 06:45 Sodium Level 134 L Potassium Level 3.4 L Chloride Level 101 Carbon Dioxide Level 21 Anion Gap 12 Blood Urea Nitrogen 32 H Creatinine 1.85 H Est Glomerular Filtrat Rate mL/min Glucose Level 94 Calcium Level 8.6 Phosphorus Level 3.6 Magnesium Level 1.7 White Blood Count 9.4 Red Blood Count 2.65 L Hemoglobin 8.4 L Hematocrit 27.2 L Mean Corpuscular Volume 102.6 H Mean Corpuscular Hemoglobin 31.7 Mean Corpuscular Hemoglobin Concent 30.9 L Red Cell Distribution Width 18.6 H Platelet Count 378 Mean Platelet Volume 10.4 Immature Granulocytes % 1.400 H Neutrophils % 68.6 Lymphocytes % 14.4 L Monocytes % 10.2 Eosinophils % 4.9 Basophils % 0.5 Nucleated Red Blood Cells % 0.0 Immature Granulocytes # 0.130 H Neutrophils # 6.4 Lymphocytes # 1.4 Monocytes # 1.0 H Eosinophils # 0.5 Basophils # 0.1 Nucleated Red Blood Cells # 0.0 Medications Medication Current Medications IV Flush (NS 10 ml) 10 ml PRN IV ; Start 05/06/18 at 20:30 Ascorbic Acid (Vitamin C) 500 mg DAILY GTB Last administered on 05/28/18 09:27; Admin Dose 500 MG; Start 05/07/18 at 09:00 Albuterol/ Ipratropium (Duoneb) 3 ml Q2H RESP THERAPY PRN HHN SHORTNESS OF BREATH; Start 05/06/18 at 23:30 Zinc Sulfate (Zinc Sulfate) 220 mg DAILY GTB Last administered on 05/28/18 09:31; Admin Dose 220 MG; Start 05/07/18 at 09:00 Ondansetron HCl (Zofran Tab) 4 mg Q6H PRN GTB NAUSEA AND/OR VOMITING; Start 05/07/18 at 00:15 Multivitamins (Multivitamin) 30 ml DAILY GTB Last administered on 05/28/18 10:41; Admin Dose 30 ML; Start 05/07/18 at 09:00 Norepinephrine 250 ml @ 1.875 mls/ hr TITRATE IV Last administered on 05/27/18 21:05; Admin Dose 9.375 MLS/HR; Start 05/08/18 at 03:00 Phenylephrine HCl 80 mg/Dextrose 250 ml @ 18.75 mls/ hr TITRATE IV Last administered on 05/15/18 01:50; Admin Dose 5.63 MLS/HR; Start 05/09/18 at 12:30 [facility]isc[facility] This patient goldman... PRN PRN XX WOUND CARE; Start 05/09/18 at 17:00 Vancomycin HCl (Vancomycin Oral Syringe) 250 mg Q6 PO Last administered on 05/28/18 11:26; Admin Dose 250 MG; Start 05/12/18 at 00:00 Metronidazole 100 ml @ 100 mls/hr Q8 IVPB Last administered on 05/28/18 14:37; Admin Dose 100 MLS/HR; Start 05/11/18 at 20:00 Propofol 100 ml @ 2.64 mls/hr Q12H IV Last administered on 05/21/18 07:19; Admin Dose 18.48 MLS/HR; Start 05/12/18 at 18:30 Albuterol (Ventolin Hfa) 4 puff Q6H RESP THERAPY INH Last administered on 05/28/18 14:16; Admin Dose 4 PUFF; Start 05/12/18 at 20:00 Ipratropium [place] (Atrovent Hfa) 4 puff Q6H RESP THERAPY INH Last administered on 05/28/18 14:16; Admin Dose 4 PUFF; Start 05/12/18 at 20:00 Heparin Sodium (Porcine) (Heparin (1000 Units/ml)) 2,800 unit AFTER DIALYSIS CATHETER Last administered on 05/27/18 10:34; Admin Dose 2,800 UNIT; Start 05/16/18 at 16:30 Furosemide (Lasix) 40 mg BID DIURETICS IV Last administered on 05/28/18 05:48; Admin Dose 40 MG; Start 05/19/18 at 09:00; Status Hold Epoetin Zen-epbx (RETACRIT(esrd)) 20,000 unit Tu@1700 SC Last administered on 05/26/18 17:28; Admin Dose 20,000 UNIT; Start 05/19/18 at 17:00 Spironolactone (Aldactone) 50 mg DAILY GTB Last administered on 05/28/18 09:28; Admin Dose 50 MG; Start 05/21/18 at 09:00 Midazolam HCl 50 ml @ 1 mls/hr TITRATE IV Last administered on 05/28/18 14:50; Admin Dose 5 MLS/HR; Start 05/21/18 at 10:30 Amiodarone HCl (Cordarone) 200 mg TID PO Last administered on 05/28/18 14:36; Admin Dose 200 MG; Start 05/21/18 at 14:30 Metolazone (Zaroxolyn) 5 mg DAILY@0600 PO Last administered on 05/28/18 05:48; Admin Dose 5 MG; Start 05/22/18 at 09:00; Status Hold Famotidine (Pepcid) 20 mg DAILY PEG Last administered on 05/28/18 09:27; Admin Dose 20 MG; Start 05/23/18 at 09:00 Morphine Sulfate (morphine) 6 mg Q4H PRN PEG SEVERE PAIN LEVEL 7-10 Last administered on 05/27/18at 10:35; Admin Dose 6 MG; Start 05/22/18 at 17:00 Albumin Human 100 ml @ 100 mls/hr DURING DIALYSIS PRN IV hypotension on hd; Start 05/27/18 at 07:30 Cholestyramine Resin (Questran Light) 4 gm 0600,1200,1800,2300 PO Last administered on 05/28/18at 05:48; Admin Dose 4 GM; Start 05/27/18 at 18:00 Metoprolol Tartrate (Lopressor) 25 mg Q8 GTB ; Start 05/28/18 at 22:00 GRISELDA DENNIS May 28, 2018 17:27
[2018-05-28] MEDS: METOPROLOL 25 MG TAB GTB SCH (23:14)
[2018-05-29] VITALS (59 sets, daily range): BP systolic 88–149; BP diastolic 44–95; PULSE 70–106; RESP 13–48
[2018-05-29] MEDS: MIDAZOLAM (DRIP) 50 mg/50 mL 50 ML IV SCH ×3 (00:11→23:32)
[2018-05-29] MEDS: ALBUTEROL HFA 8 GM INHALER INH SCH ×4 (01:03→19:07)
[2018-05-29] MEDS: IPRATROPIUM (HFA) 12.9 GM INHALER INH SCH ×4 (01:03→19:07)
[2018-05-29] MEDS: METOPROLOL 25 MG TAB GTB SCH ×3 (05:38→21:55)
[2018-05-29] MEDS: metroNIDAZOLE 500 MG/NS (PMX) 100 ML IVPB SCH (05:39)
[2018-05-29] MEDS: VANCOMYCIN HCL 250 MG/5ML POSYG PO SCH ×4 (05:39→23:31)
[2018-05-29] MEDS: CHOLESTYRAMINE (LIGHT) 4 GM PACKET PO SCH ×4 (05:40→22:00)
[2018-05-29] MEDS: PROPOFOL 100 ML IV SCH ×2 (05:45→18:06)
--- NOTE | 2018-05-29 08:00 | PN ---
DATE: 05/29/2018 SUBJECTIVE: The patient remains critically ill, currently off pressor support. The patient's urinar y output has been adequate. No other acute events noted. No hemoptysis, hematemesis, or hematochezi a. The patient is pending possible trach placement. OBJECTIVE: VITAL SIGNS: Blood pressure is 113/54, respirations 22, pulse 82, temperature 99.2. HEENT: Head is normocephalic. NECK: Supple. HEART: Regular rate. LUNGS: Show diminished breath sounds at the base. ABDOMEN: Soft, nontender to palpation without rebound or guarding. EXTREMITIES: Negative for clubbing, cyanosis. Positive edema, diffuse anasarca. DERMATOLOGIC: No rashes. MUSCULOSKELETAL: No joint effusion. NEUROLOGIC: No change in exam. MEDICATIONS: The patient's medications have been reviewed. LABORATORY DATA: From 05/29/2018 has been reviewed. IMAGING STUDIES: Reviewed. Cultures have been reviewed. ASSESSMENT AND PLAN: 1. Nonoliguric acute kidney injury on top of chronic kidney disease with previous baseline creatinin e of 2.0 to 2.5 mg/dL. Etiology of acute kidney injury is secondary to acute tubular necrosis. The patient is currently on hemodialysis for solute clearance and volume removal. We will anticipate ano ther hemodialysis today. We will monitor closely. 2. Volume overload secondary to acute kidney injury, chronic kidney failure, congestive heart failur e. Continue ultrafiltration with hemodialysis. We will resume diuretic therapy if the patient's hem odynamics remain stable. 3. Hypokalemia and hypomagnesemia. Continue to monitor and replete. 4. Hypernatremia. We will limit the patient's free water flushes and monitor closely. 5. Anemia. Continue to monitor hemoglobin and hematocrit levels. We will give Epogen as needed. 6. Mineral bone disorder. Continue to monitor calcium and phosphorus levels. 7. Ventilator-dependent respiratory failure. Vent settings and ABG was reviewed. Continue to monit or. 8. Sepsis status post shock. Continue to monitor. The patient is currently off pressor support. C ontinue antibiotic therapy. 9. Tachyarrhythmia. Continue to monitor. Follow up with cardiology. 10. Dysphagia. Continue tube feeding. 11. Acute encephalopathy, etiology is toxic metabolic. 12. Lower extremity wounds. Continue wound care. Dictated By: JEANA BANSAL DO NR/NTS Conf#: [id number] DID#: [id number] CC: ROLAND GIRON MD; QUINTEN UMAÑA MD;*EndCC*
[2018-05-29] MEDS: MULTIVITAMINS 30 ML CUP GTB SCH (08:41)
[2018-05-29] MEDS: FAMOTIDINE 20 MG TAB PEG SCH (08:42)
[2018-05-29] MEDS: BALSAM PERU/CASTOR OIL 60 GM TUBE TOP SCH ×2 (08:42→21:57)
[2018-05-29] MEDS: ZINC SULFATE 220 MG CAP GTB SCH (08:42)
[2018-05-29] MEDS: ASCORBIC ACID 500 MG TAB GTB SCH (08:42)
[2018-05-29] MEDS: AMIODARONE 200 MG TAB PO SCH ×3 (08:42→21:56)
[2018-05-29] MEDS: SPIRONOLACTONE 25 MG TAB GTB SCH (08:42)
--- NOTE | 2018-05-29 10:16 | CONS ---
Assessment/Plan Assessment/Plan Hospital Course (Demo Recall) # sepsis, SIRS, pulmonary, cardiac - s/p septic shock due to pneumonia and C diff colitis - acute on chronic hypoxic respiratory failure, persistent - s/p reintubation 05/12/2018 - recurrent colonization of the anterior neck wound with ESBL+kleb, MRSA, GBS, corynebacteria on 05/06/2018 -s/p meropenem - h/o pneumonia vs. colonization of the airway by pseudomonas and ESBL+klebsiella - h/o possible, recurrent HCAP due to pseudomonas and ESBL+klebsiella - h/o recurrent HCAP due to MRSA and Enterobacter (culture of tracheal aspirate on 07/16/2017 that was collected at [facility]) . Pt took vancomycin and ceftazidime - h/o decannulation prior to admission - h/o tracheostomy on 06/11/2017 - h/o SIRS from UGIB in 2018 - h/o thoracentesis on 07/18/2017, transudative (protein <2, LDH 279) - h/o bleeding from the trach site in 2018 - h/o septic shock due to pneumonia, ARDS, bacteremia, fungemia in 2018 - h/o ARDS in 2018 - h/o smoking - COPD - h/o ILD per medical record - h/o PAF, improved # GI - C diff colitis, diagnosed on 05/11/2018 - h/o intermittent diarrhea, Pt had multiple negative C. diff tests at [facility] at OSH in the past; none was positive until 05/11/2018 - dysphagia - h/o PEG placement 06/13/2018 - protein calorie malnutrition - h/o coffee ground emesis/UGIB on 12/23/2017 due to deep ulceration of distal esophagus and gastritis on EGD 12/26/2017. No e/o H. pylori - h/o possible appendicitis on CT on 11/22/2017, Pt took ertapenem (11/24/2017- 12/01/2017) - h/o extensive adhesions lower abdominal and pelvis between small bowel to each other and to colon and to abdominal wall, anterior pelvic wall chronic abscess secondary to probably an old perforated diverticulitis, torsion of small bowel around these dense adhesion causing multiple obstructive points - h/o laparoscopic exploration and extensive lysis of adhesions and drainage of anterior pelvic wall abscess 09/16/2017. Cultures were negative, no e/o malignancy. Pt took pip/tazo (09/16/2017-09/26/2017) - h/o EGD and exchange of PEG on 09/01/2017 - h/o partial obstruction mid jejunum in L anterior central pelvis with suggestion of a 3 cm soft tissue mass on CT 08/28/2017 - h/o internal stomal deep ulcer behind the internal bumper, gastritis and esophagitis, Rodriguez's cannot be ruled out, per EGD with biopsy 07/23/2017 - h/o GIB s/p flex sig showed polyp; stool OB negative on 06/29/17 - h/o stool OB positive status - h/o SBO and ileus due to pain meds - h/o mildly elevated CEA # renal/ - anasarca - started on HD on 05/15/2018, via Kem in R groin - recurrent NATHAN on CKD - 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 Her strain of CRE was sensitive to colistin, Avycaz, and Vabomere but resistant to Zerbaxa (reported on 05/19/2018) - Hyponatremia - Hyperkalemia, now hypokalemia - Metabolic acidosis - adrenal insufficiency - h/o vaginal bleed in 2018 - h/o colonization of urinary tract by ESBL+klebsiella, VRE - h/o recurrent, symptomatic UTI due to carbapenem-resistant kleb (MDR strain) per urine culture 10/04/17, 10/09/17, 10/21/2017, P took colistin (10/09/2017- 10/15/2017), fosfomycin for carbapenemase-producing klebsiella and VRE on 10/25/2017 and 10/28/2017 - h/o funguria - h/o urinary retention # fungemia, bacteremia 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 improved. Probable manifestation of endocarditis. Pt declined MRI on 08/06/2017 - h/o infection of R toes due to pseudomonas. coagulase negative Staph likely a colonizer - h/o intertrigo of the groin, resolved with nystatin powder - h/o scabies, locally crusted lesion over L scapula, s/p permethrin cream and pGT ivermectin on 08/11/2017, 08/12/2017, 08/19/2017. Repeat skin scraping on 08/21/2017 was negative for scabies # psych, neuro - acute toxic metabolic encephalopathy - decreased hearing b/l - h/o critical illness polyneuropathy - anxiety/depression, bipolar d/o, seen by Psychiatry in the past - chronic pain syndrome - h/o medical non-compliance: she would refuse her medications, treatment and straight catheterization in 2018 # hematological, vascular - chronic anemia requiring blood transfusion intermittently - Macrocytic anemia - 3.1 cm AAA on imaging - PVD Recommendations: - continue pGT vancomycin (05/11/2018-) for now for C. diff colitis - DC IV metronidazole (05/11/2018-) as diarrhea is resolving. Pt completed meropenem for HCAP (05/13/2018-05/19/2018) Management d/w JAYANT Rahman and with Dr. Doyle Critical care time spent: 35 min Consultation Date/Type/Reason Admit Date/Time May 06, 2018 at 17:38 Initial Consult Date 05/07/18 Type of Consult Infectious Disease Requesting Provider: ROLAND GIRON MD Date/Time of Note DATE: 05/29/18 TIME: 10:15 24 HR Interval Summary Free Text/Dictation Pt is planned for re-do trach today. Had "smear" of BM today. No diarrhea. Moderate amount of secretions were suctions from ETT per d/w nursing. Pt nods yes to pain. ROS limited as pt is moderately sedated on Versed. Subjective hx not possible: pt non-verbal Exam/Review of Systems Exam Vitals Vital Signs Date Temp Pulse Resp B/P (MAP) Pulse Ox O2 O2 Flow FiO2 Time Delivery Rate 05/29/18 78 21 98 30 08:18 05/29/18 113/54 Mechanical 06:00 (73) Ventilator 05/29/18 99.2 04:00 Intake and Output 05/28/18 05/28/18 05/29/18 1515:00 23:00 07:00 IntakeIntake Total 700 ml 755 ml 370 ml OutputOutput Total 775 ml 560 ml 480 ml BalanceBalance -75 ml 195 ml -110 ml Exam Constitutional: well developed, non-verbal, frail, obese, other (chronically debilitated, orally intubated, moderately sedated on Versed) Head: normocephalic, atraumatic Eyes: nl conjunctiva, nl lids ENMT: nl external ears & nose, intubated Neck: other (old trach site with dressing c/d/i) Respiratory: diminished breath sounds, other (on ventilator support with coarse breath sounds) Cardiovascular: regular rate and rhythm, nl pulses Gastrointestinal: soft, non-tender, bowel sounds, other (PEG site is c/d/i); No distended Genitourinary - Female: other (Garza in place with yellow urine; HD catheter in R groin with dressing semi-intact; +intertrigo) Musculoskeletal: other (eschar on toes; bilateral foot drop) Extremities: edema (all four extremities) Neurological: other (sedated but opens eyes to verbal and tactile stimuli, +occ tracking, selectively nods to simple questions) Skin: nl turgor, dry, other (wounds- nurses notes and photos reviewed in chart; LLE dressing c/d/i) Results Result Diagram: 05/29/1843905/29/18439 Results 24hrs Laboratory Tests Test 05/29/18 04:40 White Blood Count 8.4 Red Blood Count 2.51 L Hemoglobin 7.9 L Hematocrit 26.0 L Mean Corpuscular Volume 103.6 H Mean Corpuscular Hemoglobin 31.5 Mean Corpuscular Hemoglobin Concent 30.4 L Red Cell Distribution Width 18.6 H Platelet Count 384 Mean Platelet Volume 10.6 H Immature Granulocytes % 1.700 H Neutrophils % 72.3 Lymphocytes % 13.7 L Monocytes % 8.0 Eosinophils % 3.9 Basophils % 0.4 Nucleated Red Blood Cells % 0.0 Immature Granulocytes # 0.140 H Neutrophils # 6.1 Lymphocytes # 1.2 Monocytes # 0.7 Eosinophils # 0.3 Basophils # 0.0 Nucleated Red Blood Cells # 0.0 Sodium Level 134 L Potassium Level 3.8 Chloride Level 102 Carbon Dioxide Level 21 Anion Gap 11 Blood Urea Nitrogen 36 H Creatinine 2.00 H Est Glomerular Filtrat Rate mL/min Glucose Level 61 #L Calcium Level 8.9 Phosphorus Level 4.1 Magnesium Level 1.7 Imaging Imaging Latest CXR 05/24/2018: Persistent diffuse bilateral reticular nodular infiltrates . No change. Medications Medication Current Medications IV Flush (NS 10 ml) 10 ml PRN IV ; Start 05/06/18 at 20:30 Ascorbic Acid (Vitamin C) 500 mg DAILY GTB Last administered on 05/29/18 08:42; Admin Dose 500 MG; Start 05/07/18 at 09:00 Albuterol/ Ipratropium (Duoneb) 3 ml Q2H RESP THERAPY PRN HHN SHORTNESS OF BREATH; Start 05/06/18 at 23:30 Zinc Sulfate (Zinc Sulfate) 220 mg DAILY GTB Last administered on 05/29/18 08:42; Admin Dose 220 MG; Start 05/07/18 at 09:00 Ondansetron HCl (Zofran Tab) 4 mg Q6H PRN GTB NAUSEA AND/OR VOMITING; Start 05/07/18 at 00:15 Multivitamins (Multivitamin) 30 ml DAILY GTB Last administered on 05/29/18 08:41; Admin Dose 30 ML; Start 05/07/18 at 09:00 Norepinephrine 250 ml @ 1.875 mls/ hr TITRATE IV Last administered on 05/27/18 21:05; Admin Dose 9.375 MLS/HR; Start 05/08/18 at 03:00 Phenylephrine HCl 80 mg/Dextrose 250 ml @ 18.75 mls/ hr TITRATE IV Last administered on 05/15/18 01:50; Admin Dose 5.63 MLS/HR; Start 05/09/18 at 12:30 Miscellaneous Information (Pending [facility] Order For Wound Care) This patient goldman... PRN PRN XX WOUND CARE; Start 05/09/18 at 17:00 Vancomycin HCl (Vancomycin Oral Syringe) 250 mg Q6 PO Last administered on 05/29/18 05:39; Admin Dose 250 MG; Start 05/12/18 at 00:00 Metronidazole 100 ml @ 100 mls/hr Q8 IVPB Last administered on 05/29/18 05:39; Admin Dose 100 MLS/HR; Start 05/11/18 at 20:00 Propofol 100 ml @ 2.64 mls/hr Q12H IV Last administered on 05/21/18 07:19; Admin Dose 18.48 MLS/HR; Start 05/12/18 at 18:30 Albuterol (Ventolin Hfa) 4 puff Q6H RESP THERAPY INH Last administered on 05/29/18 08:07; Admin Dose 4 PUFF; Start 05/12/18 at 20:00 Ipratropium [place] (Atrovent Hfa) 4 puff Q6H RESP THERAPY INH Last administered on 05/29/18 08:07; Admin Dose 4 PUFF; Start 05/12/18 at 20:00 Heparin Sodium (Porcine) (Heparin (1000 Units/ml)) 2,800 unit AFTER DIALYSIS CATHETER Last administered on 05/27/18 10:34; Admin Dose 2,800 UNIT; Start 05/16/18 at 16:30 Furosemide (Lasix) 40 mg BID DIURETICS IV Last administered on 05/28/18 05:4 8; Admin Dose 40 MG; Start 05/19/18 at 09:00; Status Hold Epoetin Zen-epbx (RETACRIT(esrd)) 20,000 unit Tu@1700 SC Last administered on 05/26/18 17:28; Admin Dose 20,000 UNIT; Start 05/19/18 at 17:00 Spironolactone (Aldactone) 50 mg DAILY GTB Last administered on 05/29/18 08:42; Admin Dose 50 MG; Start 05/21/18 at 09:00 Midazolam HCl 50 ml @ 1 mls/hr TITRATE IV Last administered on 05/29/18 00:11; Admin Dose 5 MLS/HR; Start 05/21/18 at 10:30 Amiodarone HCl (Cordarone) 200 mg TID PO Last administered on 05/29/18 08:42; Admin Dose 200 MG; Start 05/21/18 at 14:30 Metolazone (Zaroxolyn) 5 mg DAILY@0600 PO Last administered on 05/28/18 05:48; Admin Dose 5 MG; Start 05/22/18 at 09:00; Status Hold Famotidine (Pepcid) 20 mg DAILY PEG Last administered on 05/29/18 08:42; Admin Dose 20 MG; Start 05/23/18 at 09:00 Morphine Sulfate (morphine) 6 mg Q4H PRN PEG SEVERE PAIN LEVEL 7-10 Last admi nistered on 05/27/18 10:35; Admin Dose 6 MG; Start 05/22/18 at 17:00 Albumin Human 100 ml @ 100 mls/hr DURING DIALYSIS PRN IV hypotension on hd; Start 05/27/18 at 07:30 Cholestyramine Resin (Questran Light) 4 gm 0600,1200,1800,2300 PO Last administered on 05/29/18 05:40; Admin Dose 4 GM; Start 05/27/18 at 18:00 Metoprolol Tartrate (Lopressor) 25 mg Q8 GTB Last administered on 05/29/18 05:38; Admin Dose 25 MG; Start 05/28/18 at 22:00 LAURA JOSHI NP May 29, 2018 10:16
--- NOTE | 2018-05-29 10:48 | HPN ---
Date/Time of Note Date/Time of Note DATE: 05/29/18 TIME: 10:48 Interval H&P Admission Note Pt. seen H&P reviewed: No system changes HAMLET CUNNINGHAM MD May 29, 2018 10:48
--- NOTE | 2018-05-29 10:52 | SIPON ---
Date/Time of Note Date/Time of Note DATE: 05/29/18 TIME: 10:51 Operative Report Preoperative Diagnosis resp failure Postoperative Diagnosis same Operation/Procedure Performed tracheostomy Surgeon see signature line membership assistant na Anesthesia: general Estimated blood loss: minimal Transfusion Required none Specimen none Grafts/Implants none Complications none HAMLET CUNNINGHAM MD May 29, 2018 10:52
[2018-05-29] MEDS ORDERED: LIDOCAINE 1%/EPI (1:100,000) (MDV) 20 ML ONE (10:55)
[2018-05-29] MEDS ORDERED: FENTAnyl 50 MCG/ML VIAL ONE (11:06)
[2018-05-29] MEDS ORDERED: ROCURONIUM 50 MG INJ ONE (11:06)
[2018-05-29] MEDS ORDERED: PROPOFOL 20 ML ONE (11:06)
[2018-05-29] MEDS ORDERED: PHENYLephrine (100 MCG/ML) 10ML SYG ONE (11:07)
--- NOTE | 2018-05-29 11:26 | PREAC ---
Date/Time of Note Date/Time of Note DATE: 05/29/18 TIME: 11:23 Anesthesia Eval and Record Evaluation Time Pre-Procedure Interview DATE: 05/29/18 TIME: 11:23 Age 73 Sex female NPO: 8 hrs Preoperative diagnosis Respiratory Failure Planned procedure Tracheostomy Past Medical History Past Medical History: Includes Pulm: Other (respiratory failure intubated on vent) Neuro: Seizure disorder, Other (Toxic encephalopathy) Renal: CKD Hepatic: Other GI: GERD Heme: Anemia, Other Psych: Depression Surgery & Anesthesia Issues No known issue Meds Anticoagulation: No Beta Darlene within 24 hr: No Reason Beta Darlene not given: Pt. not on B-Darlene Reported Medications Zinc Sulfate* (Zinc Sulfate*) 220 Mg Tablet, 220 MG GTB DAILY, TAB START DATE 05/04/18, END DATE 06/03/18 05/06/18 Diclofenac Sodium* (Voltaren* Gel) 1% -100 Gm Gel, 2 GM TOP TID, #1 TUB 05/06/18 Ascorbic Acid (Vitamin C) 500 Mg Tab, 500 MG GTB DAILY, TAB 05/06/18 Quetiapine Fumarate* (Seroquel*) 100 Mg Tablet, 600 MG GTB HS, #30 TAB 05/06/18 Protein Supplement (Promod) 946 Ml Liquid, 30 ML GTB BID 05/06/18 Epoetin Zen (Procrit) 20,000 Unit/1 Ml Vial, 45200 UNIT IJ Q TUE for FOR ANEMIA OF CKD, VIAL HOLD IFHGB IS EQUAL OR GREATER THAN 11 05/06/18 Ondansetron Hcl* (Ondansetron Hcl* Liq) 4 Mg/5 Ml Solution, 4 MG GTB Q6H PRN for NAUSEA AND/OR VOMITING, ML 05/06/18 Multivitamin with Minerals (Multivitamins with Minerals) 1 Each Tablet, 1 EACH GTB QAM, TAB 05/06/18 Metoprolol Tartrate* (Lopressor*) 25 Mg Tab, 25 MG GTB BID, #60 TAB HOLD FOR SBP<110 OR HR<60 05/06/18 Lorazepam* (Ativan* Intensol) 2 Mg/Ml Soln, 0.5 MG IV* Q6H PRN for ANXIETY, #1 BOTTLE START DATE 04/02/18, END DATE 06/01/18 05/06/18 Lidocaine (Lidocaine) 1 Each Adh..patch, 1 EACH TP Q12H 5% 05/06/18 Ipratropium-Albuterol (Ipratropium-Albuterol) 0.5-3 Mg/3 Ml Ampul.neb, 3 ML INHALATION Q6 PRN for BRONCHOSPASM, #30 VIAL 05/06/18 Ipratropium-Albuterol (Ipratropium-Albuterol) 0.5-3 Mg/3 Ml Ampul.neb, 3 ML IN HALATION Q2H PRN for BRONCHOSPASM, #30 VIAL 05/06/18 Famotidine* (Famotidine*) 20 Mg Tablet, 20 MG GTB BID, #60 TAB 05/06/18 Valproic Acid* (Depakene*) 250 Mg/5 Ml Udc Syrup, 100 MG GTB QHS, ML 05/06/18 Clonidine Hcl* (Clonidine Hcl*) 0.1 Mg Tab, 0.1 MG GTB Q6 PRN for NEEDED, TAB FOR SBP>160 OR DBP>90 05/06/18 Aspirin* (Aspirin* Chew) 81 Mg Tab.chew, 81 MG GTB DAILY, TAB.CHEW 05/06/18 Current Medications IV Flush (NS 10 ml) 10 ml PRN IV ; Start 05/06/18 at 20:30 Ascorbic Acid (Vitamin C) 500 mg DAILY GTB Last administered on 05/29/18at 08:42; Admin Dose 500 MG; Start 05/07/18 at 09:00 Albuterol/ Ipratropium (Duoneb) 3 ml Q2H RESP THERAPY PRN HHN SHORTNESS OF BREATH; Start 05/06/18 at 23:30 Zinc Sulfate (Zinc Sulfate) 220 mg DAILY GTB Last administered on 05/29/18at 08:42; Admin Dose 220 MG; Start 05/07/18 at 09:00 Ondansetron HCl (Zofran Tab) 4 mg Q6H PRN GTB NAUSEA AND/OR VOMITING; Start 05/07/18 at 00:15 Multivitamins (Multivitamin) 30 ml DAILY GTB Last administered on 05/29/18at 08:41; Admin Dose 30 ML; Start 05/07/18 at 09:00 Norepinephrine 250 ml @ 1.875 mls/ hr TITRATE IV Last administered on 05/27/18 21:05; Admin Dose 9.375 MLS/HR; Start 05/08/18 at 03:00 Phenylephrine HCl 80 mg/Dextrose 250 ml @ 18.75 mls/ hr TITRATE IV Last administered on 05/15/18 01:50; Admin Dose 5.63 MLS/HR; Start 05/09/18 at 12:30 Miscellaneous Information (Pending Santyl Order For Wound Care) This patient goldman... PRN PRN XX WOUND CARE; Start 05/09/18 at 17:00 Vancomycin HCl (Vancomycin Oral Syringe) 250 mg Q6 PO Last administered on 05/29/18 05:39; Admin Dose 250 MG; Start 05/12/18 at 00:00 Propofol 100 ml @ 2.64 mls/hr Q12H IV Last administered on 05/21/18 07:19; Admin Dose 18.48 MLS/HR; Start 05/12/18 at 18:30 Albuterol (Ventolin Hfa) 4 puff Q6H RESP THERAPY INH Last administered on 05/29/18 08:07; Admin Dose 4 PUFF; Start 05/12/18 at 20:00 Ipratropium [place]rich (Atrovent Hfa) 4 puff Q6H RESP THERAPY INH Last administered on 05/29/18 08:07; Admin Dose 4 PUFF; Start 05/12/18 at 20:00 Heparin Sodium (Porcine) (Heparin (1000 Units/ml)) 2,800 unit AFTER DIALYSIS CATHETER Last administered on 05/27/18 10:34; Admin Dose 2,800 UNIT; Start 05/16/18 at 16:30 Furosemide (Lasix) 40 mg BID DIURETICS IV Last administered on 05/28/18 05:48; Admin Dose 40 MG; Start 05/19/18 at 09:00; Status Hold Epoetin Zen-epbx (RETACRIT(esrd)) 20,000 unit Tu@1700 SC Last administered on 05/26/18 17:28; Admin Dose 20,000 UNIT; Start 05/19/18 at 17:00 Spironolactone (Aldactone) 50 mg DAILY GTB Last administered on 05/29/18 08:42; Admin Dose 50 MG; Start 05/21/18 at 09:00 Midazolam HCl 50 ml @ 1 mls/hr TITRATE IV Last administered on 05/29/18 00:11; Admin Dose 5 MLS/HR; Start 05/21/18 at 10:30 Amiodarone HCl (Cordarone) 200 mg TID PO Last administered on 05/29/18 08:42; Admin Dose 200 MG; Start 05/21/18 at 14:30 Metolazone (Zaroxolyn) 5 mg DAILY@0600 PO Last administered on 05/28/18 05:48; Admin Dose 5 MG; Start 05/22/18 at 09:00; Status Hold Famotidine (Pepcid) 20 mg DAILY PEG Last administered on 05/29/18 08:42; Admin Dose 20 MG; Start 05/23/18 at 09:00 Morphine Sulfate (morphine) 6 mg Q4H PRN PEG SEVERE PAIN LEVEL 7-10 Last administered on 05/27/18at 10:35; Admin Dose 6 MG; Start 05/22/18 at 17:00 Albumin Human 100 ml @ 100 mls/hr DURING DIALYSIS PRN IV hypotension on hd; Start 05/27/18 at 07:30 Cholestyramine Resin (Questran Light) 4 gm 0600,1200,1800,2300 PO Last administered on 05/29/18 05:40; Admin Dose 4 GM; Start 05/27/18 at 18:00 Metoprolol Tartrate (Lopressor) 25 mg Q8 GTB Last administered on 05/29/18 05:38; Admin Dose 25 MG; Start 05/28/18 at 22:00 Meds reviewed: Yes Allergies Coded Allergies: shellfish derived (Unverified Allergy, Unknown, 05/06/18) Allergies Reviewed: Yes Labs/Studies Labs Reviewed: Reviewed by anesthesiologist Result Diagram: 05/29/180 05/29/18 0440 Laboratory Tests 05/29/18 04:40 test: N/A Studies: ECG (ST, LAE), CXR (refer to report) Pre-procedure Exam Last vitals Vital Signs Date Temp Pulse Resp B/P (MAP) Pulse Ox O2 O2 Flow FiO2 Time Delivery Rate 05/29/18 81 25 116/63 100 Mechanical 10:00 (80) Ventilator 05/29/18 30 09:20 05/29/18 98.3 08:00 Airway: Adequate mouth opening, Adequate thyromental dist Mallampati: Mallampati II Teeth: Normal Lung: Normal Heart: Normal ASA Physical Status ASA physical status: 3 Emergency: None Planned Anesthetic General/MAC: ETT Planned Pain Management Parenteral pain med Pre-operative Attestations Prior to commencing anesthesia and surgery, the patient was re-evaluated, there was verification of: *The patient's identity *The results of appropriate recent lab work and preoperative vital signs *The above evaluation not changing prior to induction *Anesthetic plan, risk benefits, alternative and complications discussed with patient/family; questions answered; patient/family understands, accepts and wishes to proceed. JAZ RICE MD May 29, 2018 11:26
--- NOTE | 2018-05-29 11:55 | PAC ---
Date/Time of Note Date/Time of Note DATE: 05/29/18 TIME: 11:55 Post-Anesthesia Notes Post-Anesthesia Note Last documented vital signs Vital Signs Date Temp Pulse Resp B/P (MAP) Pulse Ox O2 O2 Flow FiO2 Time Delivery Rate 05/29/18 98.1 81 25 116/63 100 Mechanical 11:50 (80) Ventilator 05/29/18 30 09:20 05/29/18 98.3 08:00 Activity: WNL Respiratory function: WNL Cardiovascular function: WNL Mental status: Baseline Pain reasonably controlled: Yes Hydration appropriate: Yes Nausea/Vomiting absent: Yes JAZ RICE MD May 29, 2018 11:55
--- NOTE | 2018-05-29 12:36 | CONS ---
Consult Date/Type/Reason Admit Date/Time May 06, 2018 at 17:38 Initial Consult Date 05/10/18 Type of Consult Pulmonary Requesting Provider: ROLAND GIRON MD Date/Time of Note DATE: 05/29/18 TIME: 12:33 Subjective Patient continues mechanical ventilation this morning. Scheduled for tracheostomy. Objective Vital Signs Date Temp Pulse Resp B/P (MAP) Pulse Ox O2 O2 Flow FiO2 Time Delivery Rate 05/29/18 98.0 11:53 05/29/18 84 25 99 30 11:20 05/29/18 116/63 Mechanical 10:00 (80) Ventilator Intake and Output 05/28/18 05/28/18 05/29/18 1515:00 23:00 07:00 IntakeIntake Total 700 ml 755 ml 370 ml OutputOutput Total 775 ml 560 ml 530 ml BalanceBalance -75 ml 195 ml -160 ml Exam GENERAL: Elderly appearing lady orally intubated on mechanical ventilation. VITAL SIGNS: per chart NECK: Supple. No JVD or lymphadenopathy. CARDIAC EXAM: S1, S2. No added sounds or murmurs. CHEST: Diminished air entry bilaterally ABDOMEN: Soft, nontender. No guarding or rebound. EXTREMITIES: No cyanosis, clubbing edema +1 NEUROLOGIC: Generalized weakness. Vent Setting Ventilator Support Mode: AC, VC plus Fraction of Inspired Oxygen pe: 30 Positive End Expiratory Pressu: 5.0 Results/Medications Result Diagram: 05/29/1843905/29/180 Results 24 hrs Laboratory Tests Test 05/29/18 04:40 White Blood Count 8.4 Red Blood Count 2.51 L Hemoglobin 7.9 L Hematocrit 26.0 L Mean Corpuscular Volume 103.6 H Mean Corpuscular Hemoglobin 31.5 Mean Corpuscular Hemoglobin Concent 30.4 L Red Cell Distribution Width 18.6 H Platelet Count 384 Mean Platelet Volume 10.6 H Immature Granulocytes % 1.700 H Neutrophils % 72.3 Lymphocytes % 13.7 L Monocytes % 8.0 Eosinophils % 3.9 Basophils % 0.4 Nucleated Red Blood Cells % 0.0 Immature Granulocytes # 0.140 H Neutrophils # 6.1 Lymphocytes # 1.2 Monocytes # 0.7 Eosinophils # 0.3 Basophils # 0.0 Nucleated Red Blood Cells # 0.0 Sodium Level 134 L Potassium Level 3.8 Chloride Level 102 Carbon Dioxide Level 21 Anion Gap 11 Blood Urea Nitrogen 36 H Creatinine 2.00 H Est Glomerular Filtrat Rate mL/min Glucose Level 61 #L Calcium Level 8.9 Phosphorus Level 4.1 Magnesium Level 1.7 Medications Current Medications IV Flush (NS 10 ml) 10 ml PRN IV ; Start 05/06/18 at 20:30 Ascorbic Acid (Vitamin C) 500 mg DAILY GTB Last administered on 05/29/18 08:42; Admin Dose 500 MG; Start 05/07/18 at 09:00 Albuterol/ Ipratropium (Duoneb) 3 ml Q2H RESP THERAPY PRN HHN SHORTNESS OF BREATH; Start 05/06/18 at 23:30 Zinc Sulfate (Zinc Sulfate) 220 mg DAILY GTB Last administered on 05/29/18 08:42; Admin Dose 220 MG; Start 05/07/18 at 09:00 Ondansetron HCl (Zofran Tab) 4 mg Q6H PRN GTB NAUSEA AND/OR VOMITING; Start 05/07/18 at 00:15 Multivitamins (Multivitamin) 30 ml DAILY GTB Last administered on 05/29/18 08:41; Admin Dose 30 ML; Start 05/07/18 at 09:00 Norepinephrine 250 ml @ 1.875 mls/ hr TITRATE IV Last administered on 05/27/18 21:05; Admin Dose 9.375 MLS/HR; Start 05/08/18 at 03:00 Phenylephrine HCl 80 mg/Dextrose 250 ml @ 18.75 mls/ hr TITRATE IV Last administered on 05/15/18 01:50; Admin Dose 5.63 MLS/HR; Start 05/09/18 at 12:30 [facility] This patient goldman... PRN PRN XX WOUND CARE; Start 05/09/18 at 17:00 Vancomycin HCl (Vancomycin Oral Syringe) 250 mg Q6 PO Last administered on 05/29/18 12:12; Admin Dose 250 MG; Start 05/12/18 at 00:00 Propofol 100 ml @ 2.64 mls/hr Q12H IV Last administered on 05/21/18 07:19; Admin Dose 18.48 MLS/HR; Start 05/12/18 at 18:30 Albuterol (Ventolin Hfa) 4 puff Q6H RESP THERAPY INH Last administered on 05/29/18 08:07; Admin Dose 4 PUFF; Start 05/12/18 at 20:00 Ipratropium [place] (Atrovent Hfa) 4 puff Q6H RESP THERAPY INH Last administered on 05/29/18 08:07; Admin Dose 4 PUFF; Start 05/12/18 at 20:00 Heparin Sodium (Porcine) (Heparin (1000 Units/ml)) 2,800 unit AFTER DIALYSIS CATHETER Last administered on 05/27/18 10:34; Admin Dose 2,800 UNIT; Start 05/16/18 at 16:30 Furosemide (Lasix) 40 mg BID DIURETICS IV Last administered on 05/28/18 05:48; Admin Dose 40 MG; Start 05/19/18 at 09:00; Status Hold Epoetin Zen-epbx (RETACRIT(esrd)) 20,000 unit Tu@1700 SC Last administered on 05/26/18 17:28; Admin Dose 20,000 UNIT; Start 05/19/18 at 17:00 Spironolactone (Aldactone) 50 mg DAILY GTB Last administered on 05/29/18 08:42; Admin Dose 50 MG; Start 05/21/18 at 09:00 Midazolam HCl 50 ml @ 1 mls/hr TITRATE IV Last administered on 05/29/18 00:11; Admin Dose 5 MLS/HR; Start 05/21/18 at 10:30 Amiodarone HCl (Cordarone) 200 mg TID PO Last administered on 05/29/18 12:12; Admin Dose 200 MG; Start 05/21/18 at 14:30 Metolazone (Zaroxolyn) 5 mg DAILY@0600 PO Last administered on 05/28/18 05:48; Admin Dose 5 MG; Start 05/22/18 at 09:00; Status Hold Famotidine (Pepcid) 20 mg DAILY PEG Last administered on 05/29/18 08:42; Admin Dose 20 MG; Start 05/23/18 at 09:00 Morphine Sulfate (morphine) 6 mg Q4H PRN PEG SEVERE PAIN LEVEL 7-10 Last administered on 05/27/18 10:35; Admin Dose 6 MG; Start 05/22/18 at 17:00 Albumin Human 100 ml @ 100 mls/hr DURING DIALYSIS PRN IV hypotension on hd; Start 05/27/18 at 07:30 Cholestyramine Resin (Questran Light) 4 gm 0600,1200,1800,2300 PO Last administered on 05/29/18at 05:40; Admin Dose 4 GM; Start 05/27/18 at 18:00 Metoprolol Tartrate (Lopressor) 25 mg Q8 GTB Last administered on 05/29/18at 05:38; Admin Dose 25 MG; Start 05/28/18 at 22:00 Assessment/Plan Hospital Course (Demo Recall) Assessment 1. Hypoxemic respiratory failure failed multiple weaning trials 2. History of pulmonary fibrosis 3. Anemia questionable GI bleed 4. History of renal failure on hemodialysis 5. Decubitus ulcers Plan 1. Continue mechanical ventilation pending tracheostomy today 2. Continue tube feeding 3. Continue wound care 4. Anticipate transfer to [facility] Prognosis guarded Critical care time 40 minutes. LAURA JENKINS MD, [facility] May 29, 2018 12:36
--- NOTE | 2018-05-29 13:11 | CONS ---
Assessment/Plan Assessment/Plan Hospital Course (Demo Recall) Septic as well as hemorrhagic shock-improving Acute respiratory failure status post intubation Acute blood loss anemia Septic shock and hemorrhagic shock History of respiratory failure status post decannulation Preserved ejection fraction echocardiogram 05/10/2018 Paroxysmal atrial fibrillation, currently sinus rhythm Acute kidney injury -Patient status post tracheostomy today -Blood pressure trend overall improved and has remained off IV pressor. Continue beta-tin as tolerated, will plan on decreasing amiodarone to twice daily over the next 1-2 days if remains in sinus rhythm -Vent management as per pulmonary -Fluid management and electrolytes as per renal -Antibiotics as per infectious disease -No anticoagulation given recurrent anemia requiring blood transfusions Consultation Date/Type/Reason Admit Date/Time May 06, 2018 at 17:38 Initial Consult Date 05/10/18 Type of Consult Cardiology Requesting Provider: ROLAND GIRON MD Date/Time of Note DATE: 05/29/18 TIME: 13:08 24 HR Interval Summary Free Text/Dictation Patient seen and examined. Status post tracheostomy today no new cardiac issues as per nursing staff Exam/Review of Systems Vital Signs Vitals Vital Signs Date Temp Pulse Resp B/P (MAP) Pulse Ox O2 O2 Flow FiO2 Time Delivery Rate 05/29/18 98.0 11:53 05/29/18 84 25 99 30 11:20 05/29/18 116/63 Mechanical 10:00 (80) Ventilator Intake and Output 05/28/18 05/28/18 05/29/18 1515:00 23:00 07:00 IntakeIntake Total 700 ml 755 ml 370 ml OutputOutput Total 775 ml 560 ml 530 ml BalanceBalance -75 ml 195 ml -160 ml Exam Exam Sedated, no apparent distress Head: normocephalic Neck: other (Tracheostomy) Respiratory: other (Coarse breath sounds bilaterally, no wheezing) Cardiovascular: regular rate and rhythm (S1-S2 heard) Gastrointestinal: soft, non-tender, bowel sounds Extremities: edema Labs Result Diagram: 05/29/1843905/29/18439 Results 24hrs Laboratory Tests Test 05/29/18 04:40 White Blood Count 8.4 Red Blood Count 2.51 L Hemoglobin 7.9 L Hematocrit 26.0 L Mean Corpuscular Volume 103.6 H Mean Corpuscular Hemoglobin 31.5 Mean Corpuscular Hemoglobin Concent 30.4 L Red Cell Distribution Width 18.6 H Platelet Count 384 Mean Platelet Volume 10.6 H Immature Granulocytes % 1.700 H Neutrophils % 72.3 Lymphocytes % 13.7 L Monocytes % 8.0 Eosinophils % 3.9 Basophils % 0.4 Nucleated Red Blood Cells % 0.0 Immature Granulocytes # 0.140 H Neutrophils # 6.1 Lymphocytes # 1.2 Monocytes # 0.7 Eosinophils # 0.3 Basophils # 0.0 Nucleated Red Blood Cells # 0.0 Sodium Level 134 L Potassium Level 3.8 Chloride Level 102 Carbon Dioxide Level 21 Anion Gap 11 Blood Urea Nitrogen 36 H Creatinine 2.00 H Est Glomerular Filtrat Rate mL/min Glucose Level 61 #L Calcium Level 8.9 Phosphorus Level 4.1 Magnesium Level 1.7 Medications Medications Current Medications IV Flush (NS 10 ml) 10 ml PRN IV ; Start 05/06/18 at 20:30 Ascorbic Acid (Vitamin C) 500 mg DAILY GTB Last administered on 05/29/18 08:42; Admin Dose 500 MG; Start 05/07/18 at 09:00 Albuterol/ Ipratropium (Duoneb) 3 ml Q2H RESP THERAPY PRN HHN SHORTNESS OF BREATH; Start 05/06/18 at 23:30 Zinc Sulfate (Zinc Sulfate) 220 mg DAILY GTB Last administered on 05/29/18 08:42; Admin Dose 220 MG; Start 05/07/18 at 09:00 Ondansetron HCl (Zofran Tab) 4 mg Q6H PRN GTB NAUSEA AND/OR VOMITING; Start 05/07/18 at 00:15 Multivitamins (Multivitamin) 30 ml DAILY GTB Last administered on 05/29/18 08:41; Admin Dose 30 ML; Start 05/07/18 at 09:00 Norepinephrine 250 ml @ 1.875 mls/ hr TITRATE IV Last administered on 9at 21:05; Admin Dose 9.375 MLS/HR; Start 05/08/18 at 03:00 Phenylephrine HCl 80 mg/Dextrose 250 ml @ 18.75 mls/ hr TITRATE IV Last administered on 05/15/18 01:50; Admin Dose 5.63 MLS/HR; Start 05/09/18 at 12:30 Miscellaneous Information (Pending Santyl Order For Wound Care) This patient goldman... PRN PRN XX WOUND CARE; Start 05/09/18 at 17:00 Vancomycin HCl (Vancomycin Oral Syringe) 250 mg Q6 PO Last administered on 05/29/18 12:12; Admin Dose 250 MG; Start 05/12/18 at 00:00 Propofol 100 ml @ 2.64 mls/hr Q12H IV Last administered on 05/21/18 07:19; Admin Dose 18.48 MLS/HR; Start 05/12/18 at 18:30 Albuterol (Ventolin Hfa) 4 puff Q6H RESP THERAPY INH Last administered on 05/29/18 08:07; Admin Dose 4 PUFF; Start 05/12/18 at 20:00 Ipratropium [place] (Atrovent Hfa) 4 puff Q6H RESP THERAPY INH Last administered on 05/29/18 08:07; Admin Dose 4 PUFF; Start 05/12/18 at 20:00 Heparin Sodium (Porcine) (Heparin (1000 Units/ml)) 2,800 unit AFTER DIALYSIS CATHETER Last administered on 05/27/18 10:34; Admin Dose 2,800 UNIT; Start 05/16/18 at 16:30 Furosemide (Lasix) 40 mg BID DIURETICS IV Last administered on 05/28/18 05:48; Admin Dose 40 MG; Start 05/19/18 at 09:00; Status Hold Epoetin Zen-epbx (RETACRIT(esrd)) 20,000 unit Tu@1700 SC Last administered on 05/26/18 17:28; Admin Dose 20,000 UNIT; Start 05/19/18 at 17:00 Spironolactone (Aldactone) 50 mg DAILY GTB Last administered on 05/29/18 08:42; Admin Dose 50 MG; Start 05/21/18 at 09:00 Midazolam HCl 50 ml @ 1 mls/hr TITRATE IV Last administered on 05/29/18 00:11; Admin Dose 5 MLS/HR; Start 05/21/18 at 10:30 Amiodarone HCl (Cordarone) 200 mg TID PO Last administered on 05/29/18 12:12; Admin Dose 200 MG; Start 05/21/18 at 14:30 Metolazone (Zaroxolyn) 5 mg DAILY@0600 PO Last administered on 05/28/18 05:48; Admin Dose 5 MG; Start 05/22/18 at 09:00; Status Hold Famotidine (Pepcid) 20 mg DAILY PEG Last administered on 05/29/18at 08:42; Admin Dose 20 MG; Start 05/23/18 at 09:00 Morphine Sulfate (morphine) 6 mg Q4H PRN PEG SEVERE PAIN LEVEL 7-10 Last administered on 05/27/18at 10:35; Admin Dose 6 MG; Start 05/22/18 at 17:00 Albumin Human 100 ml @ 100 mls/hr DURING DIALYSIS PRN IV hypotension on hd; Start 05/27/18 at 07:30 Cholestyramine Resin (Questran Light) 4 gm 0600,1200,1800,2300 PO Last administered on 05/29/18at 05:40; Admin Dose 4 GM; Start 05/27/18 at 18:00 Metoprolol Tartrate (Lopressor) 25 mg Q8 GTB Last administered on 05/29/18 05:38; Admin Dose 25 MG; Start 05/28/18 at 22:00 Evangelista Scanlon DO May 29, 2018 13:11
--- NOTE | 2018-05-29 16:23 | PN ---
Date/Time of Note Date/Time of Note DATE: 05/29/18 TIME: 16:21 Assessment/Plan VTE Prophylaxis Risk score (from [facility]0 risk: 5 SCD applied (from [facility] [place]): No SCD contraindicated: other Pharmacological prophylaxis: other Lines/Catheters IV Catheter Type (from [facility]): ovidio Central line still needed: Yes Urinary Cath still in place: Yes Reason Cath still needed: urinary retention Assessment/Plan Assessment/Plan -Acute respiratory failure requiring intubation and ventilatory support. -SP tracheostomy today - intact - Dr. Lambert is following in pulmonology consultation. -Atrial fibrillation was rapid ventricular response, s/p amiodarone drip. Rate is well controlled on p.o. amiodarone and metoprolol. Dr. Scanlon is following in cardiology consultation. -Septic shock secondary to urinary tract infection, anterior neck soft tissue infection, and C. difficile colitis, resolving. Continue antibiotics per ID. D robert Black is following in infection disease consultation. -Acute kidney injury on chronic kidney disease. Started on HD this admission. Dr. Mckeon is following in nephrology consultation. -Anemia of chronic inflammation, stool for OB is negative, status post blood transfusion. Continue Epogen. -Metabolic acidosis, resolved. -Acute diastolic congestive heart failure. -Paroxysmal atrial fibrillation -COPD -Dysphagia with PEG. -G-tube mild malfunction, changed by GI Dr. Carolina is following in gastroenterology consultation. -Obesity Critical care time spent is 30 minutes. Further recommendations based on clinical course. Plan of care discussed with Dr. Eisenberg. Result Diagram: 05/29/18 0440 05/29/18 0440 Results 24hrs Laboratory Tests Test 05/29/18 04:40 White Blood Count 8.4 Red Blood Count 2.51 L Hemoglobin 7.9 L Hematocrit 26.0 L Mean Corpuscular Volume 103.6 H Mean Corpuscular Hemoglobin 31.5 Mean Corpuscular Hemoglobin Concent 30.4 L Red Cell Distribution Width 18.6 H Platelet Count 384 Mean Platelet Volume 10.6 H Immature Granulocytes % 1.700 H Neutrophils % 72.3 Lymphocytes % 13.7 L Monocytes % 8.0 Eosinophils % 3.9 Basophils % 0.4 Nucleated Red Blood Cells % 0.0 Immature Granulocytes # 0.140 H Neutrophils # 6.1 Lymphocytes # 1.2 Monocytes # 0.7 Eosinophils # 0.3 Basophils # 0.0 Nucleated Red Blood Cells # 0.0 Sodium Level 134 L Potassium Level 3.8 Chloride Level 102 Carbon Dioxide Level 21 Anion Gap 11 Blood Urea Nitrogen 36 H Creatinine 2.00 H Est Glomerular Filtrat Rate mL/min Glucose Level 61 #L Calcium Level 8.9 Phosphorus Level 4.1 Magnesium Level 1.7 Subjective 24 Hr Interval Summary Free Text/Dictation sp trach placement having HD now seems comfortable Patient cod status was DNR and changes to Full code for trach placement. no new events reported last night Subjective hx not possible: pt non-verbal Constitutional: requiring IVF, requiring O2 Exam/Review of Systems Exam Vitals Vital Signs Date Temp Pulse Resp B/P (MAP) Pulse Ox O2 O2 Flow FiO2 Time Delivery Rate 05/29/18 89 15:45 05/29/18 24 98 30 15:20 05/29/18 104/48 Mechanical 14:15 (66) Ventilator Trach Collar 05/29/18 99.3 12:15 Intake and Output 05/28/18 05/28/18 05/29/18 1515:00 23:00 07:00 IntakeIntake Total 700 ml 755 ml 370 ml OutputOutput Total 775 ml 560 ml 530 ml BalanceBalance -75 ml 195 ml -160 ml Constitutional: well developed, non-verbal, frail Psych: nl mood/affect Head: normocephalic Eyes: nl lids ENMT: nl external ears & nose Neck: non-tender, other (trach intact) Respiratory: diminished breath sounds (bilaterally at bases) Cardiovascular: nl pulses, other (s1s2) Gastrointestinal: soft, non-tender, other (gt intact) Musculoskeletal: muscle weakness, range of motion Extremities: normal pulses Neurological: confused, unresponsive Skin: other Results Results 24hrs Laboratory Tests Test 05/29/18 04:40 White Blood Count 8.4 Red Blood Count 2.51 L Hemoglobin 7.9 L Hematocrit 26.0 L Mean Corpuscular Volume 103.6 H Mean Corpuscular Hemoglobin 31.5 Mean Corpuscular Hemoglobin Concent 30.4 L Red Cell Distribution Width 18.6 H Platelet Count 384 Mean Platelet Volume 10.6 H Immature Granulocytes % 1.700 H Neutrophils % 72.3 Lymphocytes % 13.7 L Monocytes % 8.0 Eosinophils % 3.9 Basophils % 0.4 Nucleated Red Blood Cells % 0.0 Immature Granulocytes # 0.140 H Neutrophils # 6.1 Lymphocytes # 1.2 Monocytes # 0.7 Eosinophils # 0.3 Basophils # 0.0 Nucleated Red Blood Cells # 0.0 Sodium Level 134 L Potassium Level 3.8 Chloride Level 102 Carbon Dioxide Level 21 Anion Gap 11 Blood Urea Nitrogen 36 H Creatinine 2.00 H Est Glomerular Filtrat Rate mL/min Glucose Level 61 #L Calcium Level 8.9 Phosphorus Level 4.1 Magnesium Level 1.7 Medications Medication Current Medications IV Flush (NS 10 ml) 10 ml PRN IV ; Start 05/06/18 at 20:30 Ascorbic Acid (Vitamin C) 500 mg DAILY GTB Last administered on 05/29/18 08:42; Admin Dose 500 MG; Start 05/07/18 at 09:00 Albuterol/ Ipratropium (Duoneb) 3 ml Q2H RESP THERAPY PRN HHN SHORTNESS OF BREATH; Start 05/06/18 at 23:30 Zinc Sulfate (Zinc Sulfate) 220 mg DAILY GTB Last administered on 05/29/18 08:42; Admin Dose 220 MG; Start 05/07/18 at 09:00 Ondansetron HCl (Zofran Tab) 4 mg Q6H PRN GTB NAUSEA AND/OR VOMITING; Start 05/07/18 at 00:15 Multivitamins (Multivitamin) 30 ml DAILY GTB Last administered on 05/29/18 08:41; Admin Dose 30 ML; Start 05/07/18 at 09:00 Norepinephrine 250 ml @ 1.875 mls/ hr TITRATE IV Last administered on 05/27/18 21:05; Admin Dose 9.375 MLS/HR; Start 05/08/18 at 03:00 Phenylephrine HCl 80 mg/Dextrose 250 ml @ 18.75 mls/ hr TITRATE IV Last a dministered on 05/15/18 01:50; Admin Dose 5.63 MLS/HR; Start 05/09/18 at 12:30 [facility] This patient goldman... PRN PRN XX WOUND CARE; Start 05/09/18 at 17:00 Vancomycin HCl (Vancomycin Oral Syringe) 250 mg Q6 PO Last administered on 05/29/18 12:12; Admin Dose 250 MG; Start 05/12/18 at 00:00 Propofol 100 ml @ 2.64 mls/hr Q12H IV Last administered on 05/21/18 07:19; Admin Dose 18.48 MLS/HR; Start 05/12/18 at 18:30 Albuterol (Ventolin Hfa) 4 puff Q6H RESP THERAPY INH Last administered on 05/29/18 08:07; Admin Dose 4 PUFF; Start 05/12/18 at 20:00 Ipratropium [place] (Atrovent Hfa) 4 puff Q6H RESP THERAPY INH Last administered on 05/29/18 08:07; Admin Dose 4 PUFF; Start 05/12/18 at 20:00 Heparin Sodium (Porcine) (Heparin (1000 Units/ml)) 2,800 unit AFTER DIALYSIS CATHETER Last administered on 05/27/18 10:34; Admin Dose 2,800 UNIT; Start 05/16/18 at 16:30 Furosemide (Lasix) 40 mg BID DIURETICS IV Last administered on 05/28/18 05:48; Admin Dose 40 MG; Start 05/19/18 at 09:00; Status Hold Epoetin Zen-epbx (RETACRIT(esrd)) 20,000 unit Tu@1700 SC Last administered on 05/26/18 17:28; Admin Dose 20,000 UNIT; Start 05/19/18 at 17:00 Spironolactone (Aldactone) 50 mg DAILY GTB Last administered on 05/29/18 08:42; Admin Dose 50 MG; Start 05/21/18 at 09:00 Midazolam HCl 50 ml @ 1 mls/hr TITRATE IV Last administered on 05/29/18 14:57; Admin Dose 5 MLS/HR; Start 05/21/18 at 10:30 Amiodarone HCl (Cordarone) 200 mg TID PO Last administered on 05/29/18 12:12; Admin Dose 200 MG; Start 05/21/18 at 14:30 Metolazone (Zaroxolyn) 5 mg DAILY@0600 PO Last administered on 05/28/18 05:48; Admin Dose 5 MG; Start 05/22/18 at 09:00; Status Hold Famotidine (Pepcid) 20 mg DAILY PEG Last administered on 05/29/18 08:42; Admin Dose 20 MG; Start 05/23/18 at 09:00 Morphine Sulfate (morphine) 6 mg Q4H PRN PEG SEVERE PAIN LEVEL 7-10 Last administered on 05/27/18at 10:35; Admin Dose 6 MG; Start 05/22/18 at 17:00 Albumin Human 100 ml @ 100 mls/hr DURING DIALYSIS PRN IV hypotension on hd Last administered on 05/29/18at 14:49; Admin Dose 100 MLS/HR; Start 05/27/18 at 07:30 Cholestyramine Resin (Questran Light) 4 gm 0600,1200,1800,2300 PO Last administered on 05/29/18at 05:40; Admin Dose 4 GM; Start 05/27/18 at 18:00 Metoprolol Tartrate (Lopressor) 25 mg Q8 GTB Last administered on 05/29/18at 05:38; Admin Dose 25 MG; Start 05/28/18 at 22:00 KERON MORAN May 29, 2018 16:23
[2018-05-29] MEDS: HEPARIN 1000 UNITS/ML 10 ML INJ CATHETER SCH (18:24)
[2018-05-30] VITALS (41 sets, daily range): BP systolic 99–135; BP diastolic 49–71; PULSE 84–99; RESP 18–28
[2018-05-30] MEDS: IPRATROPIUM (HFA) 12.9 GM INHALER INH SCH ×4 (01:15→19:44)
[2018-05-30] MEDS: ALBUTEROL HFA 8 GM INHALER INH SCH ×4 (01:16→19:44)
[2018-05-30] MEDS: CHOLESTYRAMINE (LIGHT) 4 GM PACKET PO SCH ×5 (06:00→23:01)
[2018-05-30] MEDS: METOPROLOL 25 MG TAB GTB SCH ×3 (06:27→21:57)
[2018-05-30] MEDS: VANCOMYCIN HCL 250 MG/5ML POSYG PO SCH ×4 (06:37→23:00)
[2018-05-30] MEDS: PROPOFOL 100 ML IV SCH ×2 (07:00→18:16)
--- NOTE | 2018-05-30 07:57 | PN ---
DATE: 05/30/2018 SUBJECTIVE: The patient remains in serious but stable condition. The patient is status post trach p lacement. The patient's urinary output is adequate. No acute events overnight. No hemoptysis, toni temesis, hematochezia. The patient had hemodialysis yesterday with approximately 2 liters removed. OBJECTIVE: VITAL SIGNS: Blood pressure is 118/64, respirations 26, pulse 94, temperature 98.6. HEENT: Head is normocephalic. NECK: Supple. HEART: Regular rate. LUNGS: Show diminished breath sounds at the base. ABDOMEN: Soft, nontender to palpation. No rebound or guarding. EXTREMITIES: Negative for clubbing, cyanosis. Positive edema. DERMATOLOGIC: No rashes. MUSCULOSKELETAL: No joint effusions. NEUROLOGIC: No change in exam. MEDICATIONS: The patient's medications have been reviewed. LABORATORY DATA: From 05/30/2018 was reviewed. IMAGING STUDIES: Reviewed. ASSESSMENT AND PLAN: 1. Nonoliguric acute kidney injury on top of chronic kidney disease with previous baseline creatinin e 2 to 2.5 mg/dL. Etiology of acute kidney injury secondary to acute tubular necrosis. The patient has been on intermittent hemodialysis. Plan will be to hold dialysis over the next 1 to 2 days. Dipak l monitor renal function and urinary output closely. 2. Volume overload secondary to acute kidney injury, chronic kidney failure, CHF. Will resume diure tic therapy. We will hold hemodialysis for now, monitor renal function and electrolytes closely. 3. Hypokalemia and hypomagnesemia. Continue to monitor and replete. 4. Hypernatremia, improved. 5. Anemia. Monitor hemoglobin and hematocrit levels. Will give Epogen as needed. 6. Mineral bone disorder, monitor calcium and phosphorus levels. 7. Ventilator-dependent respiratory failure. Vent settings and ABG was reviewed. Continue to monit or. 8. Sepsis, status post shock. Continue to monitor. The patient is currently on pressor support, co ntinue antibiotic therapy. 9. Tachyarrhythmia. Continue to monitor. Follow up with Cardiology. 10. Dysphagia. Continue tube feeding. 11. Acute encephalopathy, etiology toxic metabolic. 12. Lower extremity wounds. Continue wound care. Dictated By: JEANA FINE/TABATHA Conf#: [id number] DID#: [id number] CC: ROLAND GIRON MD; QUINTEN UMAÑA MD;*EndCC*
[2018-05-30] MEDS ORDERED: POTASSIUM CHLORIDE 20 MEQ POWDER FOR ORAL SOLN GTB ONE (08:00)
--- NOTE | 2018-05-30 09:08 | CONS ---
Assessment/Plan Assessment/Plan Assessment/Plan (Daily) Septic as well as hemorrhagic shock-improving Acute respiratory failure status post intubation Acute blood loss anemia Septic shock and hemorrhagic shock History of respiratory failure status post decannulation Preserved ejection fraction echocardiogram 05/10/2018 Paroxysmal atrial fibrillation, currently sinus rhythm Acute kidney injury -Patient status post tracheostomy -Blood pressure trend overall improved and has remained off IV pressor. Continue beta-tin as tolerated, will plan on decreasing amiodarone to twice daily over the next 1-2 days if remains in sinus rhythm -Vent management as per pulmonary -Fluid management and electrolytes as per renal -Antibiotics as per infectious disease -No anticoagulation given recurrent anemia requiring blood transfusions Consultation Date/Type/Reason Admit Date/Time May 06, 2018 at 17:38 Initial Consult Date 05/10/18 Type of Consult Cardiology Requesting Provider: ROLAND GIRON MD Date/Time of Note DATE: 05/30/18 TIME: 09:07 24 HR Interval Summary Free Text/Dictation The patent with no cahgne overnight Exam/Review of Systems Vital Signs Vitals Vital Signs Date Temp Pulse Resp B/P (MAP) Pulse Ox O2 O2 Flow FiO2 Time Delivery Rate 05/30/18 95 20 96 Mechanical 05:30 Ventilator 05/30/18 30 05:25 05/30/18 98.5 04:00 Intake and Output 05/29/18 05/29/18 05/30/18 1515:00 23:00 07:00 IntakeIntake Total 110 ml 140 ml 35 ml OutputOutput Total 410 ml 2550 ml 60 ml BalanceBalance -300 ml -2410 ml -25 ml Labs Result Diagram: 05/30/18 0514 05/30/18 0501 Results 24hrs Laboratory Tests Test 05/30/18 05:01 05/30/18 05:14 Sodium Level 137 Potassium Level 3.8 Chloride Level 104 Carbon Dioxide Level 26 Anion Gap 7 Blood Urea Nitrogen 16 # Creatinine 1.32 H Est Glomerular Filtrat Rate mL/min Glucose Level 76 Calcium Level 8.8 Phosphorus Level 3.1 Magnesium Level 1.7 White Blood Count 10.1 # Red Blood Count 2.66 L Hemoglobin 8.4 L Hematocrit 27.5 L Mean Corpuscular Volume 103.4 H Mean Corpuscular Hemoglobin 31.6 Mean Corpuscular Hemoglobin Concent 30.5 L Red Cell Distribution Width 19.2 H Platelet Count 444 H Mean Platelet Volume 10.1 Immature Granulocytes % 0.900 H Neutrophils % 78.3 H Lymphocytes % 9.7 L Monocytes % 8.2 Eosinophils % 2.6 Basophils % 0.3 Nucleated Red Blood Cells % 0.2 H Immature Granulocytes # 0.090 H Neutrophils # 7.9 H Lymphocytes # 1.0 Monocytes # 0.8 Eosinophils # 0.3 Basophils # 0.0 Nucleated Red Blood Cells # 0.0 Medications Medications Current Medications IV Flush (NS 10 ml) 10 ml PRN IV ; Start 05/06/18 at 20:30 Ascorbic Acid (Vitamin C) 500 mg DAILY GTB Last administered on 05/29/18 08:42; Admin Dose 500 MG; Start 05/07/18 at 09:00 Albuterol/ Ipratropium (Duoneb) 3 ml Q2H RESP THERAPY PRN HHN SHORTNESS OF BREATH; Start 05/06/18 at 23:30 Zinc Sulfate (Zinc Sulfate) 220 mg DAILY GTB Last administered on 05/29/18 08:42; Admin Dose 220 MG; Start 05/07/18 at 09:00 Ondansetron HCl (Zofran Tab) 4 mg Q6H PRN GTB NAUSEA AND/OR VOMITING; Start 05/07/18 at 00:15 Multivitamins (Multivitamin) 30 ml DAILY GTB Last administered on 05/29/18 08: 41; Admin Dose 30 ML; Start 05/07/18 at 09:00 Norepinephrine 250 ml @ 1.875 mls/ hr TITRATE IV Last administered on 05/27/18 21:05; Admin Dose 9.375 MLS/HR; Start 05/08/18 at 03:00 Phenylephrine HCl 80 mg/Dextrose 250 ml @ 18.75 mls/ hr TITRATE IV Last administered on 05/15/18 01:50; Admin Dose 5.63 MLS/HR; Start 05/09/18 at 12:30 [facility] This patient goldman... PRN PRN XX WOUND CARE; Start 05/09/18 at 17:00 Vancomycin HCl (Vancomycin Oral Syringe) 250 mg Q6 PO Last administered on 05/30/18 06:37; Admin Dose 250 MG; Start 05/12/18 at 00:00 Propofol 100 ml @ 2.64 mls/hr Q12H IV Last administered on 05/21/18 07:19; Admin Dose 18.48 MLS/HR; Start 05/12/18 at 18:30 Albuterol (Ventolin Hfa) 4 puff Q6H RESP THERAPY INH Last administered on 05/30/18 08:09; Admin Dose 4 PUFF; Start 05/12/18 at 20:00 Ipratropium [place] (Atrovent Hfa) 4 puff Q6H RESP THERAPY INH Last administered on 05/30/18 08:09; Admin Dose 4 PUFF; Start 05/12/18 at 20:00 Heparin Sodium (Porcine) (Heparin (1000 Units/ml)) 2,800 unit AFTER DIALYSIS CATHETER Last administered on 05/29/18 18:24; Admin Dose 2,800 UNIT; Start 05/16/18 at 16:30 Furosemide (Lasix) 40 mg BID DIURETICS IV Last administered on 05/28/18 05:48; Admin Dose 40 MG; Start 05/19/18 at 09:00 Epoetin Zen-epbx (RETACRIT(esrd)) 20,000 unit Tu@1700 SC Last administered on 05/26/18 17:28; Admin Dose 20,000 UNIT; Start 05/19/18 at 17:00 Spironolactone (Aldactone) 50 mg DAILY GTB Last administered on 05/29/18 08:42; Admin Dose 50 MG; Start 05/21/18 at 09:00 Midazolam HCl 50 ml @ 1 mls/hr TITRATE IV Last administered on 05/29/18 23:32; Admin Dose 5 MLS/HR; Start 05/21/18 at 10:30 Amiodarone HCl (Cordarone) 200 mg TID PO Last administered on 05/29/18 21:56; Admin Dose 200 MG; Start 05/21/18 at 14:30 Metolazone (Zaroxolyn) 5 mg DAILY@0600 PO Last administered on 05/28/18 05:48; Admin Dose 5 MG; Start 05/22/18 at 09:00; Status Hold Famotidine (Pepcid) 20 mg DAILY PEG Last administered on 05/29/18 08:42; Admin Dose 20 MG; Start 05/23/18 at 09:00 Morphine Sulfate (morphine) 6 mg Q4H PRN PEG SEVERE PAIN LEVEL 7-10 Last administered on 05/27/18 10:35; Admin Dose 6 MG; Start 05/22/18 at 17:00 Albumin Human 100 ml @ 100 mls/hr DURING DIALYSIS PRN IV hypotension on hd Last administered on 05/29/18 14:49; Admin Dose 100 MLS/HR; Start 05/27/18 at 07:30 Cholestyramine Resin (Questran Light) 4 gm 0600,1200,1800,2300 PO Last administered on 05/29/18at 22:00; Admin Dose 4 GM; Start 05/27/18 at 18:00 Metoprolol Tartrate (Lopressor) 25 mg Q8 GTB Last administered on 05/30/18 06:27; Admin Dose 25 MG; Start 05/28/18 at 22:00 CODY SO MD May 30, 2018 09:08
--- NOTE | 2018-05-30 09:15 | CONS ---
Consult Date/Type/Reason Admit Date/Time May 06, 2018 at 17:38 Initial Consult Date 05/10/18 Type of Consult Pulmonary Requesting Provider: ROLAND GIRON MD Date/Time of Note DATE: 05/30/18 TIME: 09:14 Subjective More alert this morning following tracheostomy. Currently hemodynamically stable on low-dose Versed. Objective Vital Signs Date Temp Pulse Resp B/P (MAP) Pulse Ox O2 O2 Flow FiO2 Time Delivery Rate 05/30/18 95 20 96 Mechanical 05:30 Ventilator 05/30/18 30 05:25 05/30/18 98.5 04:00 Intake and Output 05/29/18 05/29/18 05/30/18 1515:00 23:00 07:00 IntakeIntake Total 110 ml 140 ml 35 ml OutputOutput Total 410 ml 2550 ml 60 ml BalanceBalance -300 ml -2410 ml -25 ml Exam GENERAL: Elderly appearing lady orally VITAL SIGNS: per chart NECK: Supple. No JVD or lymphadenopathy. CARDIAC EXAM: S1, S2. No added sounds or murmurs. CHEST: Diminished air entry bilaterally ABDOMEN: Soft, nontender. No guarding or rebound. EXTREMITIES: No cyanosis, clubbing edema +1 NEUROLOGIC: Generalized weakness. Tracheostomy and mechanical ventilation Vent Setting Ventilator Support Mode: AC, VC plus Fraction of Inspired Oxygen pe: 30 Positive End Expiratory Pressu: 5.0 Results/Medications Result Diagram: 05/30/18 0514 05/30/18 0501 Results 24 hrs Laboratory Tests Test 05/30/18 05:01 05/30/18 05:14 Sodium Level 137 Potassium Level 3.8 Chloride Level 104 Carbon Dioxide Level 26 Anion Gap 7 Blood Urea Nitrogen 16 # Creatinine 1.32 H Est Glomerular Filtrat Rate mL/min Glucose Level 76 Calcium Level 8.8 Phosphorus Level 3.1 Magnesium Level 1.7 White Blood Count 10.1 # Red Blood Count 2.66 L Hemoglobin 8.4 L Hematocrit 27.5 L Mean Corpuscular Volume 103.4 H Mean Corpuscular Hemoglobin 31.6 Mean Corpuscular Hemoglobin Concent 30.5 L Red Cell Distribution Width 19.2 H Platelet Count 444 H Mean Platelet Volume 10.1 Immature Granulocytes % 0.900 H Neutrophils % 78.3 H Lymphocytes % 9.7 L Monocytes % 8.2 Eosinophils % 2.6 Basophils % 0.3 Nucleated Red Blood Cells % 0.2 H Immature Granulocytes # 0.090 H Neutrophils # 7.9 H Lymphocytes # 1.0 Monocytes # 0.8 Eosinophils # 0.3 Basophils # 0.0 Nucleated Red Blood Cells # 0.0 Medications Current Medications IV Flush (NS 10 ml) 10 ml PRN IV ; Start 05/06/18 at 20:30 Ascorbic Acid (Vitamin C) 500 mg DAILY GTB Last administered on 05/29/18 08:42; Admin Dose 500 MG; Start 05/07/18 at 09:00 Albuterol/ Ipratropium (Duoneb) 3 ml Q2H RESP THERAPY PRN HHN SHORTNESS OF BREATH; Start 05/06/18 at 23:30 Zinc Sulfate (Zinc Sulfate) 220 mg DAILY GTB Last administered on 05/29/18 08:42; Admin Dose 220 MG; Start 05/07/18 at 09:00 Ondansetron HCl (Zofran Tab) 4 mg Q6H PRN GTB NAUSEA AND/OR VOMITING; Start 05/07/18 at 00:15 Multivitamins (Multivitamin) 30 ml DAILY GTB Last administered on 05/29/18 08:41; Admin Dose 30 ML; Start 05/07/18 at 09:00 Norepinephrine 250 ml @ 1.875 mls/ hr TITRATE IV Last administered on 05/27/18 21:05; Admin Dose 9.375 MLS/HR; Start 05/08/18 at 03:00 Phenylephrine HCl 80 mg/Dextrose 250 ml @ 18.75 mls/ hr TITRATE IV Last administered on 05/15/18 01:50; Admin Dose 5.63 MLS/HR; Start 05/09/18 at 12:30 Miscellaneous Information (Pending [facility] Order For Wound Care) This patient goldman... PRN PRN XX WOUND CARE; Start 05/09/18 at 17:00 Vancomycin HCl (Vancomycin Oral Syringe) 250 mg Q6 PO Last administered on 05/30/18 06:37; Admin Dose 250 MG; Start 05/12/18 at 00:00 Propofol 100 ml @ 2.64 mls/hr Q12H IV Last administered on 05/21/18 07:19; Admin Dose 18.48 MLS/HR; Start 05/12/18 at 18:30 Albuterol (Ventolin Hfa) 4 puff Q6H RESP THERAPY INH Last administered on 05/30/18 08:09; Admin Dose 4 PUFF; Start 05/12/18 at 20:00 Ipratropium [place] (Atrovent Hfa) 4 puff Q6H RESP THERAPY INH Last administered on 05/30/18 08:09; Admin Dose 4 PUFF; Start 05/12/18 at 20:00 Heparin Sodium (Porcine) (Heparin (1000 Units/ml)) 2,800 unit AFTER DIALYSIS CATHETER Last administered on 05/29/18 18:24; Admin Dose 2,800 UNIT; Start 05/16/18 at 16:30 Furosemide (Lasix) 40 mg BID DIURETICS IV Last administered on 05/28/18 05:48; Admin Dose 40 MG; Start 05/19/18 at 09:00 Epoetin Zen-epbx (RETACRIT(esrd)) 20,000 unit Tu@1700 SC Last administered on 05/26/18 17:28; Admin Dose 20,000 UNIT; Start 05/19/18 at 17:00 Spironolactone (Aldactone) 50 mg DAILY GTB Last administered on 05/29/18 08 :42; Admin Dose 50 MG; Start 05/21/18 at 09:00 Midazolam HCl 50 ml @ 1 mls/hr TITRATE IV Last administered on 05/29/18 23:32; Admin Dose 5 MLS/HR; Start 05/21/18 at 10:30 Amiodarone HCl (Cordarone) 200 mg TID PO Last administered on 05/29/18 21:56; Admin Dose 200 MG; Start 05/21/18 at 14:30 Metolazone (Zaroxolyn) 5 mg DAILY@0600 PO Last administered on 05/28/18 05:48; Admin Dose 5 MG; Start 05/22/18 at 09:00; Status Hold Famotidine (Pepcid) 20 mg DAILY PEG Last administered on 05/29/18 08:42; Admin Dose 20 MG; Start 05/23/18 at 09:00 Morphine Sulfate (morphine) 6 mg Q4H PRN PEG SEVERE PAIN LEVEL 7-10 Last administered on 05/27/18 10:35; Admin Dose 6 MG; Start 05/22/18 at 17:00 Albumin Human 100 ml @ 100 mls/hr DURING DIALYSIS PRN IV hypotension on hd Last administered on 05/29/18at 14:49; Admin Dose 100 MLS/HR; Start 05/27/18 at 07:30 Cholestyramine Resin (Questran Light) 4 gm 0600,1200,1800,2300 PO Last administered on 05/29/18at 22:00; Admin Dose 4 GM; Start 05/27/18 at 18:00 Metoprolol Tartrate (Lopressor) 25 mg Q8 GTB Last administered on 05/30/18at 06:27; Admin Dose 25 MG; Start 05/28/18 at 22:00 Assessment/Plan Hospital Course (Demo Recall) Assessment 1. Hypoxemic respiratory failure failed multiple weaning trials 2. History of pulmonary fibrosis 3. Anemia questionable GI bleed 4. History of renal failure on hemodialysis 5. Decubitus ulcers Plan 1. Continue mechanical ventilation via tracheostomy. DC Versed 2. Continue tube feeding 3. Continue wound care 4. Anticipate transfer to [facility] Prognosis guarded Critical care time 40 minutes. Transfer to telemetry LAURA JENKINS MD, [facility] May 30, 2018 09:15
[2018-05-30] MEDS: MULTIVITAMINS 30 ML CUP GTB SCH (09:55)
[2018-05-30] MEDS: SPIRONOLACTONE 25 MG TAB GTB SCH (09:55)
[2018-05-30] MEDS: FAMOTIDINE 20 MG TAB PEG SCH (09:55)
[2018-05-30] MEDS: ASCORBIC ACID 500 MG TAB GTB SCH (09:56)
[2018-05-30] MEDS: AMIODARONE 200 MG TAB PO SCH ×3 (09:56→21:57)
[2018-05-30] MEDS: ZINC SULFATE 220 MG CAP GTB SCH (09:56)
[2018-05-30] MEDS: BALSAM PERU/CASTOR OIL 60 GM TUBE TOP SCH ×3 (09:58→22:04)
[2018-05-30] MEDS: FUROSEMIDE 40 MG INJ IV SCH (18:00)
--- NOTE | 2018-05-30 19:47 | CONS ---
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 colonization of the airway by pseudomonas and ESBL+klebsiella - h/o possible, recurrent HCAP due to pseudomonas and ESBL+klebsiella - h/o recurrent HCAP due to MRSA and Enterobacter (culture of tracheal aspirate on 07/16/2017 that was collected at [facility]) . Pt took vancomycin and ceftazidime - h/o decannulation prior to admission - h/o tracheostomy on 06/11/2017 - h/o SIRS from UGIB in 2018 - h/o thoracentesis on 07/18/2017, transudative (protein <2, LDH 279) - h/o bleeding from the trach site in 2018 - h/o septic shock due to pneumonia, ARDS, bacteremia, fungemia in 2018 - h/o ARDS in 2018 - h/o smoking - COPD - h/o ILD per medical record - h/o PAF, improved # GI - C diff colitis, diagnosed on 05/11/2018 - h/o intermittent diarrhea, Pt had multiple negative C. diff tests at [facility] at [facility] in the past; none was positive until 05/11/2018 - dysphagia - h/o PEG placement 06/13/2018 - protein calorie malnutrition - h/o coffee ground emesis/UGIB on 12/23/2017 due to deep ulceration of distal esophagus and gastritis on EGD 12/26/2017. No e/o H. pylori - h/o possible appendicitis on CT on 11/22/2017, Pt took ertapenem (11/24/2017- 12/01/2017) - h/o extensive adhesions lower abdominal and pelvis between small bowel to each other and to colon and to abdominal wall, anterior pelvic wall chronic abscess secondary to probably an old perforated diverticulitis, torsion of small bowel around these dense adhesion causing multiple obstructive points - h/o laparoscopic exploration and extensive lysis of adhesions and drainage of anterior pelvic wall abscess 09/16/2017. Cultures were negative, no e/o malignancy. Pt took pip/tazo (09/16/2017-09/26/2017) - h/o EGD and exchange of PEG on 09/01/2017 - h/o partial obstruction mid jejunum in L anterior central pelvis with suggestion of a 3 cm soft tissue mass on CT 08/28/2017 - h/o internal stomal deep ulcer behind the internal bumper, gastritis and esophagitis, Rodriguez's cannot be ruled out, per EGD with biopsy 07/23/2017 - h/o GIB s/p flex sig showed polyp; stool OB negative on 06/29/17 - h/o stool OB positive status - h/o SBO and ileus due to pain meds - h/o mildly elevated CEA # renal/ - anasarca - started on HD on 05/15/2018, via Kem in R groin - recurrent NATHAN on CKD - 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 Her strain of CRE was sensitive to colistin, Avycaz, and Vabomere but resistant to Zerbaxa (reported on 05/19/2018) - Hyponatremia - Hyperkalemia, now hypokalemia - Metabolic acidosis - adrenal insufficiency - h/o vaginal bleed in 2018 - h/o colonization of urinary tract by ESBL+klebsiella, VRE - h/o recurrent, symptomatic UTI due to carbapenem-resistant kleb (MDR strain) per urine culture 10/04/17, 10/09/17, 10/21/2017, P took colistin (10/09/2017- 10/15/2017), fosfomycin for carbapenemase-producing klebsiella and VRE on 10/25/2017 and 10/28/2017 - h/o funguria - h/o urinary retention # fungemia, bacteremia 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 improved. Probable manifestation of endocarditis. Pt declined MRI on 08/06/2017 - h/o infection of R toes due to pseudomonas. coagulase negative Staph likely a colonizer - h/o intertrigo of the groin, resolved with nystatin powder - h/o scabies, locally crusted lesion over L scapula, s/p permethrin cream and pGT ivermectin on 08/11/2017, 08/12/2017, 08/19/2017. Repeat skin scraping on 08/21/2017 was negative for scabies # psych, neuro - acute toxic metabolic encephalopathy - decreased hearing b/l - h/o critical illness polyneuropathy - anxiety/depression, bipolar d/o, seen by Psychiatry in the past - chronic pain syndrome - h/o medical non-compliance: she would refuse her medications, treatment and straight catheterization in 2018 # hematological, vascular - chronic anemia requiring blood transfusion intermittently - Macrocytic anemia - 3.1 cm AAA on imaging - PVD Recommendations: - continue pGT vancomycin (05/11/2018-) for C. diff colitis - restart IV metronidazole (05/11/2018-05/29/2018; restart 05/30/2018-) as diarrhea has recurred. Pt completed meropenem for HCAP (05/13/2018-05/19/2018) Management d/w JAYANT Yao and with Dr. Doyle Critical care time spent: 30 min Consultation Date/Type/Reason Admit Date/Time May 06, 2018 at 17:38 Initial Consult Date 05/07/18 Type of Consult Infectious Disease Requesting Provider: ROLAND GIRON MD Date/Time of Note DATE: 05/30/18 TIME: 19:47 24 HR Interval Summary Free Text/Dictation S/p re-do trach yesterday. Pt with recurrent diarrhea with restarting GT feeds and now has Flexiseal. Planning to transfer to Telemetry. Subjective hx not possible: pt non-verbal Exam/Review of Systems Exam Vitals Vital Signs Date Temp Pulse Resp B/P (MAP) Pulse Ox O2 O2 Flow FiO2 Time Delivery Rate 05/30/18 96 23 99/49 (66) 98 Mechanical 18:00 Ventilator 05/30/18 30 17:40 05/30/18 98.2 16:00 Intake and Output 05/29/18 05/29/18 05/30/18 1515:00 23:00 07:00 IntakeIntake Total 110 ml 140 ml 35 ml OutputOutput Total 410 ml 2550 ml 60 ml BalanceBalance -300 ml -2410 ml -25 ml Exam Constitutional: well developed, non-verbal, frail, obese, other (chronically debilitated) Head: normocephalic, atraumatic Eyes: nl conjunctiva, nl lids ENMT: nl external ears & nose, intubated Neck: other (new trach is midline and connected to ventilator support) Respiratory: diminished breath sounds, other (few coarse breath sounds) Cardiovascular: regular rate and rhythm, nl pulses Gastrointestinal: soft, non-tender, bowel sounds, other (PEG site is c/d/i); other (Flexiseal with liquid brown stool) No distended Genitourinary - Female: other (Garza in place with yellow urine; HD catheter in R groin with dressing semi-intact; +intertrigo) Musculoskeletal: other (eschar on toes; bilateral foot drop) Extremities: edema (all four extremities) Neurological: other (more alert; lethargic; +occ tracking, selectively nods to simple questions) Skin: nl turgor, dry, other (wounds- nurses notes and photos reviewed in chart; LLE dressing c/d/i) Results Result Diagram: 05/30/18 0514 05/30/18 0501 Results 24hrs Laboratory Tests Test 05/30/18 05:01 05/30/18 05:14 Sodium Level 137 Potassium Level 3.8 Chloride Level 104 Carbon Dioxide Level 26 Anion Gap 7 Blood Urea Nitrogen 16 # Creatinine 1.32 H Est Glomerular Filtrat Rate mL/min Glucose Level 76 Calcium Level 8.8 Phosphorus Level 3.1 Magnesium Level 1.7 White Blood Count 10.1 # Red Blood Count 2.66 L Hemoglobin 8.4 L Hematocrit 27.5 L Mean Corpuscular Volume 103.4 H Mean Corpuscular Hemoglobin 31.6 Mean Corpuscular Hemoglobin Concent 30.5 L Red Cell Distribution Width 19.2 H Platelet Count 444 H Mean Platelet Volume 10.1 Immature Granulocytes % 0.900 H Neutrophils % 78.3 H Lymphocytes % 9.7 L Monocytes % 8.2 Eosinophils % 2.6 Basophils % 0.3 Nucleated Red Blood Cells % 0.2 H Immature Granulocytes # 0.090 H Neutrophils # 7.9 H Lymphocytes # 1.0 Monocytes # 0.8 Eosinophils # 0.3 Basophils # 0.0 Nucleated Red Blood Cells # 0.0 Imaging Imaging No new radiographs today Medications Medication Current Medications IV Flush (NS 10 ml) 10 ml PRN IV ; Start 05/06/18 at 20:30 Ascorbic Acid (Vitamin C) 500 mg DAILY GTB Last administered on 05/30/18 09:56; Admin Dose 500 MG; Start 05/07/18 at 09:00 Albuterol/ Ipratropium (Duoneb) 3 ml Q2H RESP THERAPY PRN HHN SHORTNESS OF BREATH; Start 05/06/18 at 23:30 Zinc Sulfate (Zinc Sulfate) 220 mg DAILY GTB Last administered on 05/30/18 09:56; Admin Dose 220 MG; Start 05/07/18 at 09:00 Ondansetron HCl (Zofran Tab) 4 mg Q6H PRN GTB NAUSEA AND/OR VOMITING; Start 05/07/18 at 00:15 Multivitamins (Multivitamin) 30 ml DAILY GTB Last administered on 05/30/18 09:55; Admin Dose 30 ML; Start 05/07/18 at 09:00 Norepinephrine 250 ml @ 1.875 mls/ hr TITRATE IV Last administered on 05/27/18 21:05; Admin Dose 9.375 MLS/HR; Start 05/08/18 at 03:00 Phenylephrine HCl 80 mg/Dextrose 250 ml @ 18.75 mls/ hr TITRATE IV Last administered on 05/15/18 01:50; Admin Dose 5.63 MLS/HR; Start 05/09/18 at 12:30 [facility] This patient goldman... PRN PRN XX WOUND CARE; Start 05/09/18 at 17:00 Vancomycin HCl (Vancomycin Oral Syringe) 250 mg Q6 PO Last administered on 05/30/18 18:40; Admin Dose 250 MG; Start 05/12/18 at 00:00 Propofol 100 ml @ 2.64 mls/hr Q12H IV Last administered on 05/21/18 07:19; Admin Dose 18.48 MLS/HR; Start 05/12/18 at 18:30 Albuterol (Ventolin Hfa) 4 puff Q6H RESP THERAPY INH Last administered on 05/30/18 19:44; Admin Dose 4 PUFF; Start 05/12/18 at 20:00 Ipratropium [place] (Atrovent Hfa) 4 puff Q6H RESP THERAPY INH Last administered on 05/30/18 19:44; Admin Dose 4 PUFF; Start 05/12/18 at 20:00 Heparin Sodium (Porcine) (Heparin (1000 Units/ml)) 2,800 unit AFTER DIALYSIS CATHETER Last administered on 05/29/18 18:24; Admin Dose 2,800 UNIT; Start 05/16/18 at 16:30 Furosemide (Lasix) 40 mg BID DIURETICS IV Last administered on 05/28/18 05:48; Admin Dose 40 MG; Start 05/19/18 at 09:00 Epoetin Zen-epbx (RETACRIT(esrd)) 20,000 unit Tu@1700 SC Last administered on 05/26/18 17:28; Admin Dose 20,000 UNIT; Start 05/19/18 at 17:00 Spironolactone (Aldactone) 50 mg DAILY GTB Last administered on 05/30/18 09:55; Admin Dose 50 MG; Start 05/21/18 at 09:00 Midazolam HCl 50 ml @ 1 mls/hr TITRATE IV Last administered on 05/29/18 23:32; Admin Dose 5 MLS/HR; Start 05/21/18 at 10:30 Amiodarone HCl (Cordarone) 200 mg TID PO Last administered on 05/30/18 13:25; Admin Dose 200 MG; Start 05/21/18 at 14:30 Metolazone (Zaroxolyn) 5 mg DAILY@0600 PO Last administered on 05/28/18 05:48; Admin Dose 5 MG; Start 05/22/18 at 09:00; Status Hold Famotidine (Pepcid) 20 mg DAILY PEG Last administered on 05/30/18 09:55; Admin Dose 20 MG; Start 05/23/18 at 09:00 Morphine Sulfate (morphine) 6 mg Q4H PRN PEG SEVERE PAIN LEVEL 7-10 Last administered on 05/27/18 10:35; Admin Dose 6 MG; Start 05/22/18 at 17:00 Albumin Human 100 ml @ 100 mls/hr DURING DIALYSIS PRN IV hypotension on hd Last administered on 05/29/18 14:49; Admin Dose 100 MLS/HR; Start 05/27/18 at 07:30 Cholestyramine Resin (Questran Light) 4 gm 0600,1200,1800,2300 PO Last administered on 05/30/18 14:00; Admin Dose 4 GM; Start 05/27/18 at 18:00 Metoprolol Tartrate (Lopressor) 25 mg Q8 GTB Last administered on 05/30/18 06:27; Admin Dose 25 MG; Start 05/28/18 at 22:00 Lorazepam (Ativan) 0.5 mg Q4H PRN IV ANXIETY; Start 05/30/18 at 12:00 LAURA JOSHI NP May 30, 2018 19:47
--- NOTE | 2018-05-30 20:16 | PN ---
DATE: 05/30/2018 LOCATION: Intensive care unit. SUBJECTIVE: Followup on COPD, acute on chronic respiratory failure, dysphagia, acute on chronic kidn ey disease and history of Clostridium difficile colitis back in 04/2018. The patient underwent a tra cheostomy yesterday after she failed a weaning trial. The patient is currently on vent and toleratin g it well and remains awake, however, not much communicative. The patient does occasionally tracks. No reported fever or chills, no reported active bleeding from any site. The patient is tolerating G -tube feeding. No reported anxiety or agitation. The patient has a history of bipolar disorder. PHYSICAL EXAMINATION: GENERAL: The patient was noted to be awake; however, noncommunicative. VITAL SIGNS: Temperature 98.2, pulse 99, respirations 27, blood pressure 133/66, O2 saturation 98% o n FiO2 of 30% on full vent support. HEENT: Atraumatic, normocephalic head. Conjunctivae are normal. Nose is normal. NECK: Trachea in place. No mass. CHEST: Good air entry at the bases. No use of accessory muscles. CARDIOVASCULAR: S1, S2 is currently in sinus rhythm. No murmur or rub. ABDOMEN: Soft, nondistended and nontender. EXTREMITIES: Edema is much better now. Dressing on the left leg is intact. NEUROLOGIC: The patient is awake, alert, does have generalized weakness. No useful communication wa s possible. LABORATORY DATA: Labs done this morning revealed WBC of 10.1, hemoglobin of 8.4, platelet of 444. C hemistry: Sodium 137, potassium 3.8, BUN 16, creatinine 1.3, glucose 76, phosphate 3.1, calcium 8.8 and magnesium 1.7. IMPRESSION AND PLAN: 1. Acute on chronic respiratory failure. The patient failed multiple attempts of weaning and joan enriquez has tracheostomy. The patient will be referred to [facility] for possible weani ng. 2. Paroxysmal atrial fibrillation. The patient remained in sinus rhythm. The patient has preserved ejection fraction on echo done in 04/2018. 3. Dysphagia. Continue tube feeding. 4. History of Clostridium difficile colitis. Continue p.o. vancomycin. 5. Hypertension. The patient's blood pressure has been varying between 99 and 133. We will decreas e the dose of metoprolol to 25 b.i.d. The patient has remained in sinus rhythm. 6. Acute kidney injury. The patient is on hemodialysis for fluid management. The leg swelling has improved. The patient had dialysis yesterday. We will wait for further Nephrology recommendation. 7. Chronic left lower extremity wound. Continue local wound care. We will continue to monitor in t ICU. Total critical care time spent 30 minutes. Plan of care was discussed with the patient's nurse and c onsultants. Dictated By: ROLAND COX/TABATHA Conf#: [id number] DID#: [id number]
[2018-05-30] MEDS: metroNIDAZOLE 500 MG/NS (PMX) 100 ML IVPB SCH (21:57)
[2018-05-31] VITALS (23 sets, daily range): BP systolic 118–160; BP diastolic 56–90; PULSE 80–99; RESP 19–32
[2018-05-31] MEDS: ALBUTEROL HFA 8 GM INHALER INH SCH ×4 (03:03→20:20)
[2018-05-31] MEDS: IPRATROPIUM (HFA) 12.9 GM INHALER INH SCH ×4 (03:03→20:20)
[2018-05-31] MEDS: METOPROLOL 25 MG TAB GTB SCH ×3 (05:15→21:48)
[2018-05-31] MEDS: metroNIDAZOLE 500 MG/NS (PMX) 100 ML IVPB SCH ×3 (05:15→21:49)
[2018-05-31] MEDS: FUROSEMIDE 40 MG INJ IV SCH ×2 (05:15→18:35)
[2018-05-31] MEDS: VANCOMYCIN HCL 250 MG/5ML POSYG PO SCH ×3 (05:22→18:34)
[2018-05-31] MEDS: CHOLESTYRAMINE (LIGHT) 4 GM PACKET PO SCH ×4 (05:22→22:54)
[2018-05-31] MEDS: ASCORBIC ACID 500 MG TAB GTB SCH (09:26)
[2018-05-31] MEDS: BALSAM PERU/CASTOR OIL 60 GM TUBE TOP SCH ×2 (09:26→21:49)
[2018-05-31] MEDS: FAMOTIDINE 20 MG TAB PEG SCH (09:26)
[2018-05-31] MEDS: MULTIVITAMINS 30 ML CUP GTB SCH (09:26)
[2018-05-31] MEDS: AMIODARONE 200 MG TAB PO SCH ×3 (09:27→21:48)
[2018-05-31] MEDS: ZINC SULFATE 220 MG CAP GTB SCH (09:27)
[2018-05-31] MEDS: SPIRONOLACTONE 25 MG TAB GTB SCH (09:27)
[2018-05-31] MEDS: morphine LIQ (10 MG/5 ML) CUP PEG PRN ×2 (09:42→22:00)
--- NOTE | 2018-05-31 11:01 | CONS ---
Consultation Date/Type/Reason Admit Date/Time May 06, 2018 at 17:38 Initial Consult Date 05/10/18 Type of Consult Cardiology Requesting Provider: ROLAND GIRON MD Date/Time of Note DATE: 05/31/18 TIME: 11:00 24 HR Interval Summary Free Text/Dictation Septic as well as hemorrhagic shock-improving Acute respiratory failure status post intubation Acute blood loss anemia Septic shock and hemorrhagic shock History of respiratory failure status post decannulation Preserved ejection fraction echocardiogram 05/10/2018 Paroxysmal atrial fibrillation, currently sinus rhythm Acute kidney injury -Patient status post tracheostomy -Blood pressure trend overall improved and has remained off IV pressor. Continue beta-tin as tolerated, will plan on decreasing amiodarone to twice daily over the next 1-2 days if remains in sinus rhythm -Vent management as per pulmonary -Fluid management and electrolytes as per renal -Antibiotics as per infectious disease -No anticoagulation given recurrent anemia requiring blood transfusions Subjective hx not possible: pt non-verbal Exam/Review of Systems Vital Signs Vitals Vital Signs Date Temp Pulse Resp B/P (MAP) Pulse Ox O2 O2 Flow FiO2 Time Delivery Rate 05/31/18 95 26 99 30 09:36 05/31/18 99.7 121/66 07:43 (84) 05/31/18 Mechanical 04:08 Ventilator Intake and Output 05/30/18 05/30/18 05/31/18 1515:00 23:00 07:00 IntakeIntake Total 217 ml 640 ml 545 ml OutputOutput Total 255 ml 310 ml 850 ml BalanceBalance -38 ml 330 ml -305 ml Labs Result Diagram: 05/31/18 0601 05/31/18 0601 Results 24hrs Laboratory Tests Test 05/31/18 06:01 White Blood Count 10.7 Red Blood Count 2.73 L Hemoglobin 8.7 L Hematocrit 28.7 L Mean Corpuscular Volume 105.1 H Mean Corpuscular Hemoglobin 31.9 Mean Corpuscular Hemoglobin Concent 30.3 L Red Cell Distribution Width 19.9 H Platelet Count 443 H Mean Platelet Volume 9.3 Immature Granulocytes % 1.000 H Neutrophils % 81.2 H Lymphocytes % 7.2 L Monocytes % 8.9 Eosinophils % 1.3 Basophils % 0.4 Nucleated Red Blood Cells % 0.0 Immature Granulocytes # 0.110 H Neutrophils # 8.7 H Lymphocytes # 0.8 Monocytes # 1.0 H Eosinophils # 0.1 Basophils # 0.0 Nucleated Red Blood Cells # 0.0 Sodium Level 135 Potassium Level 4.2 Chloride Level 103 Carbon Dioxide Level 22 Anion Gap 10 Blood Urea Nitrogen 21 H Creatinine 1.69 H Est Glomerular Filtrat Rate mL/min Glucose Level 107 Calcium Level 8.9 Phosphorus Level 3.7 Magnesium Level 1.6 L Medications Medications Current Medications IV Flush (NS 10 ml) 10 ml PRN IV ; Start 05/06/18 at 20:30 Ascorbic Acid (Vitamin C) 500 mg DAILY GTB Last administered on 05/31/18 09:26; Admin Dose 500 MG; Start 05/07/18 at 09:00 Albuterol/ Ipratropium (Duoneb) 3 ml Q2H RESP THERAPY PRN HHN SHORTNESS OF BREATH; Start 05/06/18 at 23:30 Zinc Sulfate (Zinc Sulfate) 220 mg DAILY GTB Last administered on 05/31/18 09:27; Admin Dose 220 MG; Start 05/07/18 at 09:00 Ondansetron HCl (Zofran Tab) 4 mg Q6H PRN GTB NAUSEA AND/OR VOMITING; Start 05/07/18 at 00:15 Multivitamins (Multivitamin) 30 ml DAILY GTB Last administered on 05/31/18 09:26; Admin Dose 30 ML; Start 05/07/18 at 09:00 Miscellaneous Information (Pending [facility] Order For Wound Care) This patient goldman... PRN PRN XX WOUND CARE; Start 05/09/18 at 17:00 Vancomycin HCl (Vancomycin Oral Syringe) 250 mg Q6 PO Last administered on 05/31/18 05:22; Admin Dose 250 MG; Start 05/12/18 at 00:00 Albuterol (Ventolin Hfa) 4 puff Q6H RESP THERAPY INH Last administered on 05/31/18 08:00; Admin Dose 4 PUFF; Start 05/12/18 at 20:00 Ipratropium [place] (Atrovent Hfa) 4 puff Q6H RESP THERAPY INH Last administered on 05/31/18 08:00; Admin Dose 4 PUFF; Start 05/12/18 at 20:00 Heparin Sodium (Porcine) (Heparin (1000 Units/ml)) 2,800 unit AFTER DIALYSIS CATHETER Last administered on 05/29/18 18:24; Admin Dose 2,800 UNIT; Start 05/16/18 at 16:30 Furosemide (Lasix) 40 mg BID DIURETICS IV Last administered on 05/31/18 05:15; Admin Dose 40 MG; Start 05/19/18 at 09:00 Epoetin Zen-epbx (RETACRIT(esrd)) 20,000 unit Tu@1700 SC Last administered on 05/26/18 17:28; Admin Dose 20,000 UNIT; Start 05/19/18 at 17:00 Spironolactone (Aldactone) 50 mg DAILY GTB Last administered on 05/31/18 09: 27; Admin Dose 50 MG; Start 05/21/18 at 09:00 Amiodarone HCl (Cordarone) 200 mg TID PO Last administered on 05/31/18 09:27; Admin Dose 200 MG; Start 05/21/18 at 14:30 Metolazone (Zaroxolyn) 5 mg DAILY@0600 PO Last administered on 05/28/18 05:48; Admin Dose 5 MG; Start 05/22/18 at 09:00; Status Hold Famotidine (Pepcid) 20 mg DAILY PEG Last administered on 05/31/18 09:26; Admin Dose 20 MG; Start 05/23/18 at 09:00 Morphine Sulfate (morphine) 6 mg Q4H PRN PEG SEVERE PAIN LEVEL 7-10 Last administered on 05/31/18 09:42; Admin Dose 6 MG; Start 05/22/18 at 17:00 Albumin Human 100 ml @ 100 mls/hr DURING DIALYSIS PRN IV hypotension on hd Last administered on 05/29/18 14:49; Admin Dose 100 MLS/HR; Start 05/27/18 at 07:30 Cholestyramine Resin (Questran Light) 4 gm 0600,1200,1800,2300 PO Last ad ministered on 05/31/18 05:22; Admin Dose 4 GM; Start 05/27/18 at 18:00 Metoprolol Tartrate (Lopressor) 25 mg Q8 GTB Last administered on 05/31/18 05:15; Admin Dose 25 MG; Start 05/28/18 at 22:00 Lorazepam (Ativan) 0.5 mg Q4H PRN IV ANXIETY; Start 05/30/18 at 12:00 Metronidazole 100 ml @ 100 mls/hr Q8 IVPB Last administered on 05/31/18at 05:15; Admin Dose 100 MLS/HR; Start 05/30/18 at 22:00 KARYN DAVILA MD May 31, 2018 11:01
--- NOTE | 2018-05-31 12:27 | CONS ---
Consult Date/Type/Reason Admit Date/Time May 06, 2018 at 17:38 Initial Consult Date 05/10/18 Type of Consult Pulmonary Requesting Provider: ROLAND GIRON MD Date/Time of Note DATE: 05/31/18 TIME: 12:26 Subjective Remains stable following transfer from ICU. Objective Vital Signs Date Temp Pulse Resp B/P (MAP) Pulse Ox O2 O2 Flow FiO2 Time Delivery Rate 05/31/18 94 12:14 05/31/18 100.2 32 124/62 99 12:01 (82) 05/31/18 30 09:36 05/31/18 Mechanica 04:08 l Ventilato r Intake and Output 05/30/18 05/30/18 05/31/18 1515:00 23:00 07:00 IntakeIntake Total 217 ml 640 ml 545 ml OutputOutput Total 255 ml 310 ml 850 ml BalanceBalance -38 ml 330 ml -305 ml Exam GENERAL: Elderly appearing lady continues mechanical ventilation via tracheosto my VITAL SIGNS: per chart NECK: Supple. No JVD or lymphadenopathy. CARDIAC EXAM: S1, S2. No added sounds or murmurs. CHEST: Diminished air entry bilaterally ABDOMEN: Soft, nontender. No guarding or rebound. EXTREMITIES: No cyanosis, clubbing edema +1 NEUROLOGIC: Generalized weakness. Vent Setting Ventilator Support Mode: AC Fraction of Inspired Oxygen pe: 30 Positive End Expiratory Pressu: 5.0 Results/Medications Result Diagram: 05/31/18 0601 05/31/18 0601 Results 24 hrs Laboratory Tests Test 05/31/18 06:01 White Blood Count 10.7 Red Blood Count 2.73 L Hemoglobin 8.7 L Hematocrit 28.7 L Mean Corpuscular Volume 105.1 H Mean Corpuscular Hemoglobin 31.9 Mean Corpuscular Hemoglobin Concent 30.3 L Red Cell Distribution Width 19.9 H Platelet Count 443 H Mean Platelet Volume 9.3 Immature Granulocytes % 1.000 H Neutrophils % 81.2 H Lymphocytes % 7.2 L Monocytes % 8.9 Eosinophils % 1.3 Basophils % 0.4 Nucleated Red Blood Cells % 0.0 Immature Granulocytes # 0.110 H Neutrophils # 8.7 H Lymphocytes # 0.8 Monocytes # 1.0 H Eosinophils # 0.1 Basophils # 0.0 Nucleated Red Blood Cells # 0.0 Sodium Level 135 Potassium Level 4.2 Chloride Level 103 Carbon Dioxide Level 22 Anion Gap 10 Blood Urea Nitrogen 21 H Creatinine 1.69 H Est Glomerular Filtrat Rate mL/min Glucose Level 107 Calcium Level 8.9 Phosphorus Level 3.7 Magnesium Level 1.6 L Medications Current Medications IV Flush (NS 10 ml) 10 ml PRN IV ; Start 05/06/18 at 20:30 Ascorbic Acid (Vitamin C) 500 mg DAILY GTB Last administered on 05/31/18 09:26; Admin Dose 500 MG; Start 05/07/18 at 09:00 Albuterol/ Ipratropium (Duoneb) 3 ml Q2H RESP THERAPY PRN HHN SHORTNESS OF BREATH; Start 05/06/18 at 23:30 Zinc Sulfate (Zinc Sulfate) 220 mg DAILY GTB Last administered on 05/31/18 09:27; Admin Dose 220 MG; Start 05/07/18 at 09:00 Ondansetron HCl (Zofran Tab) 4 mg Q6H PRN GTB NAUSEA AND/OR VOMITING; Start 05/07/18 at 00:15 Multivitamins (Multivitamin) 30 ml DAILY GTB Last administered on 05/31/18 09:26; Admin Dose 30 ML; Start 05/07/18 at 09:00 Miscellaneous Information (Pending [facility] Order For Wound Care) This patient goldman... PRN PRN XX WOUND CARE; Start 05/09/18 at 17:00 Vancomycin HCl (Vancomycin Oral Syringe) 250 mg Q6 PO Last administered on 05/31/18 12:06; Admin Dose 250 MG; Start 05/12/18 at 00:00 Albuterol (Ventolin Hfa) 4 puff Q6H RESP THERAPY INH Last administered on 05/31/18 08:00; Admin Dose 4 PUFF; Start 05/12/18 at 20:00 Ipratropium [place] (Atrovent Hfa) 4 puff Q6H RESP THERAPY INH Last administered on 05/31/18 08:00; Admin Dose 4 PUFF; Start 05/12/18 at 20:00 Heparin Sodium (Porcine) (Heparin (1000 Units/ml)) 2,800 unit AFTER DIALYSIS CATHETER Last administered on 05/29/18 18:24; Admin Dose 2,800 UNIT; Start 05/16/18 at 16:30 Furosemide (Lasix) 40 mg BID DIURETICS IV Last administered on 05/31/18 05:15; Admin Dose 40 MG; Start 05/19/18 at 09:00 Epoetin Zen-epbx (RETACRIT(esrd)) 20,000 unit Tu@1700 SC Last administered on 05/26/18 17:28; Admin Dose 20,000 UNIT; Start 05/19/18 at 17:00 Spironolactone (Aldactone) 50 mg DAILY GTB Last administered on 05/31/18 09: 27; Admin Dose 50 MG; Start 05/21/18 at 09:00 Amiodarone HCl (Cordarone) 200 mg TID PO Last administered on 05/31/18 09:27; Admin Dose 200 MG; Start 05/21/18 at 14:30 Metolazone (Zaroxolyn) 5 mg DAILY@0600 PO Last administered on 05/28/18 05:48; Admin Dose 5 MG; Start 05/22/18 at 09:00; Status Hold Famotidine (Pepcid) 20 mg DAILY PEG Last administered on 05/31/18 09:26; Admin Dose 20 MG; Start 05/23/18 at 09:00 Morphine Sulfate (morphine) 6 mg Q4H PRN PEG SEVERE PAIN LEVEL 7-10 Last administered on 05/31/18 09:42; Admin Dose 6 MG; Start 05/22/18 at 17:00 Albumin Human 100 ml @ 100 mls/hr DURING DIALYSIS PRN IV hypotension on hd Last administered on 05/29/18 14:49; Admin Dose 100 MLS/HR; Start 05/27/18 at 07:30 Cholestyramine Resin (Questran Light) 4 gm 0600,1200,1800,2300 PO Last ad ministered on 05/31/18 05:22; Admin Dose 4 GM; Start 05/27/18 at 18:00 Metoprolol Tartrate (Lopressor) 25 mg Q8 GTB Last administered on 05/31/18 05:15; Admin Dose 25 MG; Start 05/28/18 at 22:00 Lorazepam (Ativan) 0.5 mg Q4H PRN IV ANXIETY; Start 05/30/18 at 12:00 Metronidazole 100 ml @ 100 mls/hr Q8 IVPB Last administered on 4/14/19at 05:15; Admin Dose 100 MLS/HR; Start 05/30/18 at 22:00 Assessment/Plan Hospital Course (Demo Recall) Assessment 1. Hypoxemic respiratory failure failed multiple weaning trials 2. History of pulmonary fibrosis 3. Anemia questionable GI bleed 4. History of renal failure on hemodialysis 5. Decubitus ulcers Plan 1. Continue mechanical ventilation via tracheostomy. DC Versed 2. Continue tube feeding 3. Continue wound care 4. Anticipate transfer to [facility] Prognosis guarded Transfer to telemetry LAURA JENKINS MD, [facility] May 31, 2018 12:27
[2018-05-31] MEDS: METOCLOPRAMIDE 10 MG INJ IV SCH ×2 (13:52→18:34)
--- NOTE | 2018-05-31 14:44 | CONS ---
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 colonization of the airway by pseudomonas and ESBL+klebsiella - h/o possible, recurrent HCAP due to pseudomonas and ESBL+klebsiella - h/o recurrent HCAP due to MRSA and Enterobacter (culture of tracheal aspirate on 07/16/2017 that was collected at [facility]) . Pt took vancomycin and ceftazidime - h/o decannulation prior to admission - h/o tracheostomy on 06/11/2017 - h/o SIRS from UGIB in 2018 - h/o thoracentesis on 07/18/2017, transudative (protein <2, LDH 279) - h/o bleeding from the trach site in 2018 - h/o septic shock due to pneumonia, ARDS, bacteremia, fungemia in 2018 - h/o ARDS in 2018 - h/o smoking - COPD - h/o ILD per medical record - h/o PAF, improved # GI - C diff colitis, diagnosed on 05/11/2018 - h/o intermittent diarrhea, Pt had multiple negative C. diff tests at [facility] at OSH in the past; none was positive until 05/11/2018 - dysphagia - h/o PEG placement 06/13/2018 - protein calorie malnutrition - h/o coffee ground emesis/UGIB on 12/23/2017 due to deep ulceration of distal esophagus and gastritis on EGD 12/26/2017. No e/o H. pylori - h/o possible appendicitis on CT on 11/22/2017, Pt took ertapenem (11/24/2017- 12/01/2017) - h/o extensive adhesions lower abdominal and pelvis between small bowel to each other and to colon and to abdominal wall, anterior pelvic wall chronic abscess secondary to probably an old perforated diverticulitis, torsion of small bowel around these dense adhesion causing multiple obstructive points - h/o laparoscopic exploration and extensive lysis of adhesions and drainage of anterior pelvic wall abscess 09/16/2017. Cultures were negative, no e/o malignancy. Pt took pip/tazo (09/16/2017-09/26/2017) - h/o EGD and exchange of PEG on 09/01/2017 - h/o partial obstruction mid jejunum in L anterior central pelvis with suggestion of a 3 cm soft tissue mass on CT 08/28/2017 - h/o internal stomal deep ulcer behind the internal bumper, gastritis and esophagitis, Rodriguez's cannot be ruled out, per EGD with biopsy 07/23/2017 - h/o GIB s/p flex sig showed polyp; stool OB negative on 06/29/17 - h/o stool OB positive status - h/o SBO and ileus due to pain meds - h/o mildly elevated CEA # renal/ - anasarca - started on HD on 05/15/2018, via Kem in R groin - recurrent NATHAN on CKD - 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 Her strain of CRE was sensitive to colistin, Avycaz, and Vabomere but resistant to Zerbaxa (reported on 05/19/2018) - Hyponatremia - Hyperkalemia, now hypokalemia - Metabolic acidosis - adrenal insufficiency - h/o vaginal bleed in 2018 - h/o colonization of urinary tract by ESBL+klebsiella, VRE - h/o recurrent, symptomatic UTI due to carbapenem-resistant kleb (MDR strain) per urine culture 10/04/17, 10/09/17, 10/21/2017, P took colistin (10/09/2017- 10/15/2017), fosfomycin for carbapenemase-producing klebsiella and VRE on 10/25/2017 and 10/28/2017 - h/o funguria - h/o urinary retention # fungemia, bacteremia 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 improved. Probable manifestation of endocarditis. Pt declined MRI on 08/06/2017 - h/o infection of R toes due to pseudomonas. coagulase negative Staph likely a colonizer - h/o intertrigo of the groin, resolved with nystatin powder - h/o scabies, locally crusted lesion over L scapula, s/p permethrin cream and pGT ivermectin on 08/11/2017, 08/12/2017, 08/19/2017. Repeat skin scraping on 08/21/2017 was negative for scabies # psych, neuro - acute toxic metabolic encephalopathy - decreased hearing b/l - h/o critical illness polyneuropathy - anxiety/depression, bipolar d/o, seen by Psychiatry in the past - chronic pain syndrome - h/o medical non-compliance: she would refuse her medications, treatment and straight catheterization in 2018 # hematological, vascular - chronic anemia requiring blood transfusion intermittently - Macrocytic anemia - 3.1 cm AAA on imaging - PVD Recommendations: - continue pGT vancomycin (05/11/2018-) for C. diff colitis - continue IV metronidazole (05/11/2018-05/29/2018; restart 05/30/2018-) as diarrhea has recurred. Pt completed meropenem for HCAP (05/13/2018-05/19/2018). - order written to send linn cultures if temp >100.3 F - trend fever curve - consider removing R groin HD catheter if feasible Management d/w patient, JAYANT Osborne, and with Dr. Doyle Consultation Date/Type/Reason Admit Date/Time May 06, 2018 at 17:38 Initial Consult Date 05/07/18 Type of Consult Infectious Disease Requesting Provider: ROLAND GIRON MD Date/Time of Note DATE: 05/31/18 TIME: 14:44 24 HR Interval Summary Free Text/Dictation Nods yes to wanting pain medication. ROS limited d/t lethargy. Chart reviewed. Batista consult ordered. Tmax 100.2 F. WBC WNL. R femur wound cx growing GNR and blood cx shows NGTD. Subjective hx not possible: pt non-verbal Exam/Review of Systems Exam Vitals Vital Signs Date Temp Pulse Resp B/P (MAP) Pulse Ox O2 O2 Flow FiO2 Time Delivery Rate 05/31/18 94 12:14 05/31/18 100.2 32 124/62 99 12:01 (82) 05/31/18 30 09:36 05/31/18 Mechan[place] 04:08 l Ventilato r Intake and Output 05/30/18 05/30/18 05/31/18 1414:59 22:59 06:59 IntakeIntake Total 187 ml 540 ml 675 ml OutputOutput Total 210 ml 325 ml 880 ml BalanceBalance -23 ml 215 ml -205 ml Exam Constitutional: well developed, non-verbal, frail, obese, other (chronically debilitated) Head: normocephalic, atraumatic Eyes: nl conjunctiva, nl lids ENMT: nl external ears & nose, intubated Neck: other (new trach is midline and connected to ventilator support) Respiratory: diminished breath sounds, other (no wheezing) Cardiovascular: regular rate and rhythm, nl pulses Gastrointestinal: soft, non-tender, bowel sounds, other (PEG site is c/d/i); other (Flexiseal with liquid brown stool in tubing) No distended Genitourinary - Female: other (Garza in place with yellow urine; HD catheter in R groin with dressing intact; +intertrigo - improved from yesterday) Musculoskeletal: other (eschar on toes; bilateral foot drop) Extremities: edema (all four extremities) Neurological: other (more alert; lethargic; +occ tracking, selectively nods to simple questions) Skin: nl turgor, dry, other (wounds- nurses notes and photos reviewed in chart; LLE dressing c/d/i) Results Result Diagram: 05/31/18 0601 05/31/18 0601 Results 24hrs Laboratory Tests Test 05/31/18 06:01 White Blood Count 10.7 Red Blood Count 2.73 L Hemoglobin 8.7 L Hematocrit 28.7 L Mean Corpuscular Volume 105.1 H Mean Corpuscular Hemoglobin 31.9 Mean Corpuscular Hemoglobin Concent 30.3 L Red Cell Distribution Width 19.9 H Platelet Count 443 H Mean Platelet Volume 9.3 Immature Granulocytes % 1.000 H Neutrophils % 81.2 H Lymphocytes % 7.2 L Monocytes % 8.9 Eosinophils % 1.3 Basophils % 0.4 Nucleated Red Blood Cells % 0.0 Immature Granulocytes # 0.110 H Neutrophils # 8.7 H Lymphocytes # 0.8 Monocytes # 1.0 H Eosinophils # 0.1 Basophils # 0.0 Nucleated Red Blood Cells # 0.0 Sodium Level 135 Potassium Level 4.2 Chloride Level 103 Carbon Dioxide Level 22 Anion Gap 10 Blood Urea Nitrogen 21 H Creatinine 1.69 H Est Glomerular Filtrat Rate mL/min Glucose Level 107 Calcium Level 8.9 Phosphorus Level 3.7 Magnesium Level 1.6 L Medications Medication Current Medications IV Flush (NS 10 ml) 10 ml PRN IV ; Start 05/06/18 at 20:30 Ascorbic Acid (Vitamin C) 500 mg DAILY GTB Last administered on 05/31/18 09:26; Admin Dose 500 MG; Start 05/07/18 at 09:00 Albuterol/ Ipratropium (Duoneb) 3 ml Q2H RESP THERAPY PRN HHN SHORTNESS OF BREATH; Start 05/06/18 at 23:30 Zinc Sulfate (Zinc Sulfate) 220 mg DAILY GTB Last administered on 05/31/18at 09:27; Admin Dose 220 MG; Start 05/07/18 at 09:00 Ondansetron HCl (Zofran Tab) 4 mg Q6H PRN GTB NAUSEA AND/OR VOMITING; Start at 00:15 Multivitamins (Multivitamin) 30 ml DAILY GTB Last administered on 05/31/18 09:26; Admin Dose 30 ML; Start 05/07/18 at 09:00 Miscellaneous Information (Pending Santyl Order For Wound Care) This patient goldman... PRN PRN XX WOUND CARE; Start 05/09/18 at 17:00 Vancomycin HCl (Vancomycin Oral Syringe) 250 mg Q6 PO Last administered on 05/31/18at 12:06; Admin Dose 250 MG; Start 05/12/18 at 00:00 Albuterol (Ventolin Hfa) 4 puff Q6H RESP THERAPY INH Last administered on 05/31/18 08:00; Admin Dose 4 PUFF; Start 05/12/18 at 20:00 Ipratropium [place] (Atrovent Hfa) 4 puff Q6H RESP THERAPY INH Last administered on 05/31/18 08:00; Admin Dose 4 PUFF; Start 05/12/18 at 20:00 Heparin Sodium (Porcine) (Heparin (1000 Units/ml)) 2,800 unit AFTER DIALYSIS CATHETER Last administered on 05/29/18 18:24; Admin Dose 2,800 UNIT; Start 05/16/18 at 16:30 Furosemide (Lasix) 40 mg BID DIURETICS IV Last administered on 05/31/18 05:15; Admin Dose 40 MG; Start 05/19/18 at 09:00 Epoetin Zen-epbx (RETACRIT(esrd)) 20,000 unit Tu@1700 SC Last administered on 05/26/18 17:28; Admin Dose 20,000 UNIT; Start 05/19/18 at 17:00 Spironolactone (Aldactone) 50 mg DAILY GTB Last administered on 05/31/18 09:27; Admin Dose 50 MG; Start 05/21/18 at 09:00 Amiodarone HCl (Cordarone) 200 mg TID PO Last administered on 05/31/18 13:54; Admin Dose 200 MG; Start 05/21/18 at 14:30 Metolazone (Zaroxolyn) 5 mg DAILY@0600 PO Last administered on 05/28/18 05:48; Admin Dose 5 MG; Start 05/22/18 at 09:00; Status Hold Famotidine (Pepcid) 20 mg DAILY PEG Last administered on 05/31/18 09:26; Admin Dose 20 MG; Start 05/23/18 at 09:00 Morphine Sulfate (morphine) 6 mg Q4H PRN PEG SEVERE PAIN LEVEL 7-10 Last administered on 05/31/18 09:42; Admin Dose 6 MG; Start 05/22/18 at 17:00 Albumin Human 100 ml @ 100 mls/hr DURING DIALYSIS PRN IV hypotension on hd Last administered on 05/29/18 14:49; Admin Dose 100 MLS/HR; Start 05/27/18 at 07:30 Cholestyramine Resin (Questran Light) 4 gm 0600,1200,1800,2300 PO Last administered on 05/31/18 12:26; Admin Dose 4 GM; Start 05/27/18 at 18:00 Metoprolol Tartrate (Lopressor) 25 mg Q8 GTB Last administered on 05/31/18at 13:56; Admin Dose 25 MG; Start 05/28/18 at 22:00 Lorazepam (Ativan) 0.5 mg Q4H PRN IV ANXIETY; Start 05/30/18 at 12:00 Metronidazole 100 ml @ 100 mls/hr Q8 IVPB Last administered on 05/31/18 13:57; Admin Dose 100 MLS/HR; Start 05/30/18 at 22:00 Acetaminophen (Tylenol Tab) 650 mg Q4H PRN PO MILD PAIN(1-3)OR ELEVATED TEMP; Start 05/31/18 at 13:00 Metoclopramide HCl (Reglan) 5 mg Q6 IV Last administered on 05/31/18at 13:52; Admin Dose 5 MG; Start 05/31/18 at 13:00 LAURA JOSHI NP May 31, 2018 14:44
[2018-06-01] VITALS (21 sets, daily range): BP systolic 134–148; BP diastolic 74–96; PULSE 84–103; RESP 19–30
[2018-06-01] MEDS: METOCLOPRAMIDE 10 MG INJ IV SCH ×5 (00:36→23:31)
[2018-06-01] MEDS: VANCOMYCIN HCL 250 MG/5ML POSYG PO SCH ×5 (00:36→23:31)
[2018-06-01] MEDS: ALBUTEROL HFA 8 GM INHALER INH SCH ×4 (01:13→20:33)
[2018-06-01] MEDS: IPRATROPIUM (HFA) 12.9 GM INHALER INH SCH ×4 (01:13→20:33)
[2018-06-01] MEDS: morphine LIQ (10 MG/5 ML) CUP PEG PRN (03:47)
[2018-06-01] MEDS: FUROSEMIDE 40 MG INJ IV SCH ×2 (05:38→18:05)
[2018-06-01] MEDS: METOPROLOL 25 MG TAB GTB SCH (05:38)
[2018-06-01] MEDS: CHOLESTYRAMINE (LIGHT) 4 GM PACKET PO SCH ×4 (05:38→22:38)
[2018-06-01] MEDS: metroNIDAZOLE 500 MG/NS (PMX) 100 ML IVPB SCH ×3 (05:38→21:15)
[2018-06-01] MEDS: BALSAM PERU/CASTOR OIL 60 GM TUBE TOP SCH ×2 (09:00→20:22)
[2018-06-01] MEDS: MULTIVITAMINS 30 ML CUP GTB SCH (11:10)
[2018-06-01] MEDS: COLLAGENASE 5 GM (UD JAR) TOP SCH (11:10)
[2018-06-01] MEDS: AMIODARONE 200 MG TAB PO SCH ×3 (11:11→20:18)
[2018-06-01] MEDS: ZINC SULFATE 220 MG CAP GTB SCH (11:11)
[2018-06-01] MEDS: SPIRONOLACTONE 25 MG TAB GTB SCH (11:11)
[2018-06-01] MEDS: ASCORBIC ACID 500 MG TAB GTB SCH (11:11)
[2018-06-01] MEDS: FAMOTIDINE 20 MG TAB PEG SCH (11:11)
--- NOTE | 2018-06-01 14:22 | CONS ---
Assessment/Plan Assessment/Plan Hospital Course (Demo Recall) Septic as well as hemorrhagic shock-improving Acute respiratory failure status post intubation Acute blood loss anemia Septic shock and hemorrhagic shock History of respiratory failure status post decannulation Preserved ejection fraction echocardiogram 05/10/2018 Paroxysmal atrial fibrillation, currently sinus rhythm Acute kidney injury -Patient status post tracheostomy -Blood pressure trend overall improved and has remained off IV pressor. Increase beta-tin and continue as tolerated, will plan on decreasing amiodarone to twice daily -Vent management as per pulmonary -Fluid management and electrolytes as per renal -Antibiotics as per infectious disease -No anticoagulation given recurrent anemia requiring blood transfusions Consultation Date/Type/Reason Admit Date/Time May 06, 2018 at 17:38 Initial Consult Date 05/10/18 Type of Consult Cardiology Requesting Provider: ROLAND GIRON MD Date/Time of Note DATE: 06/01/18 TIME: 14:20 24 HR Interval Summary Free Text/Dictation pt seen and examined Exam/Review of Systems Vital Signs Vitals Vital Signs Date Temp Pulse Resp B/P (MAP) Pulse Ox O2 O2 Flow FiO2 Time Delivery Rate 06/01/18 103 12:55 06/01/18 30 12:05 06/01/18 98.9 25 148/76 98 11:47 (100) 06/01/18 Mechanical 04:00 Ventilator Intake and Output 05/31/18 05/31/18 06/01/18 1515:00 23:00 07:00 IntakeIntake Total 1015 ml 100 ml OutputOutput Total 700 ml BalanceBalance 315 ml 100 ml Exam Constitutional: alert (not following commands) Head: normocephalic Neck: other (trach) Respiratory: other (course bs, no wheeze) Cardiovascular: regular rate and rhythm (s1s2) Gastrointestinal: soft, non-tender, bowel sounds Extremities: edema Labs Result Diagram: 05/31/18 0601 05/31/18 0601 Results 24hrs Laboratory Tests Test 05/31/18 17:09 Bedside Glucose 136 Medications Medications Current Medications IV Flush (NS 10 ml) 10 ml PRN IV ; Start 05/06/18 at 20:30 Ascorbic Acid (Vitamin C) 500 mg DAILY GTB Last administered on 06/01/18at 11:11; Admin Dose 500 MG; Start 05/07/18 at 09:00 Albuterol/ Ipratropium (Duoneb) 3 ml Q2H RESP THERAPY PRN HHN SHORTNESS OF BREATH; Start 05/06/18 at 23:30 Zinc Sulfate (Zinc Sulfate) 220 mg DAILY GTB Last administered on 06/01/18 11:11; Admin Dose 220 MG; Start 05/07/18 at 09:00 Ondansetron HCl (Zofran Tab) 4 mg Q6H PRN GTB NAUSEA AND/OR VOMITING Last administered on 05/31/18 16:47; Admin Dose 4 MG; Start 05/07/18 at 00:15 Multivitamins (Multivitamin) 30 ml DAILY GTB Last administered on 06/01/18 11:10; Admin Dose 30 ML; Start 05/07/18 at 09:00 [facility] This patient goldman... PRN PRN XX WOUND CARE; Start 05/09/18 at 17:00 Vancomycin HCl (Vancomycin Oral Syringe) 250 mg Q6 PO Last administered on 06/01/18 12:52; Admin Dose 250 MG; Start 05/12/18 at 00:00 Albuterol (Ventolin Hfa) 4 puff Q6H RESP THERAPY INH Last administered on 06/01/18 07:54; Admin Dose 4 PUFF; Start 05/12/18 at 20:00 Ipratropium [place] (Atrovent Hfa) 4 puff Q6H RESP THERAPY INH Last administered on 06/01/18 07:53; Admin Dose 4 PUFF; Start 05/12/18 at 20:00 Heparin Sodium (Porcine) (Heparin (1000 Units/ml)) 2,800 unit AFTER DIALYSIS CATHETER Last administered on 05/29/18 18:24; Admin Dose 2,800 UNIT; Start at 16:30 Furosemide (Lasix) 40 mg BID DIURETICS IV Last administered on 06/01/18 05:38; Admin Dose 40 MG; Start 05/19/18 at 09:00 Epoetin Zen-epbx (RETACRIT(esrd)) 20,000 unit Tu@1700 SC Last administered on 05/26/18 17:28; Admin Dose 20,000 UNIT; Start 05/19/18 at 17:00 Spironolactone (Aldactone) 50 mg DAILY GTB Last administered on 06/01/18 11:11; Admin Dose 50 MG; Start 05/21/18 at 09:00 Amiodarone HCl (Cordarone) 200 mg TID PO Last administered on 06/01/18 12:52; Admin Dose 200 MG; Start 05/21/18 at 14:30 Metolazone (Zaroxolyn) 5 mg DAILY@0600 PO Last administered on 05/28/18 05:48; Admin Dose 5 MG; Start 05/22/18 at 09:00; Status Hold Famotidine (Pepcid) 20 mg DAILY PEG Last administered on 06/01/18 11:11; Admin Dose 20 MG; Start 05/23/18 at 09:00 Morphine Sulfate (morphine) 6 mg Q4H PRN PEG SEVERE PAIN LEVEL 7-10 Last administered on 06/01/18 03:47; Admin Dose 6 MG; Start 05/22/18 at 17:00 Albumin Human 100 ml @ 100 mls/hr DURING DIALYSIS PRN IV hypotension on hd Last administered on 05/29/18 14:49; Admin Dose 100 MLS/HR; Start 05/27/18 at 07:30 Cholestyramine Resin (Questran Light) 4 gm 0600,1200,1800,2300 PO Last administered on 06/01/18 12:52; Admin Dose 4 GM; Start 05/27/18 at 18:00 Metoprolol Tartrate (Lopressor) 25 mg Q8 GTB Last administered on 06/01/18 05:38; Admin Dose 25 MG; Start 05/28/18 at 22:00 Lorazepam (Ativan) 0.5 mg Q4H PRN IV ANXIETY; Start 05/30/18 at 12:00 Metronidazole 100 ml @ 100 mls/hr Q8 IVPB Last administered on 06/01/18 05:38; Admin Dose 100 MLS/HR; Start 05/30/18 at 22:00 Acetaminophen (Tylenol Tab) 650 mg Q4H PRN PO MILD PAIN(1-3)OR ELEVATED TEMP; Start 05/31/18 at 13:00 Metoclopramide HCl (Reglan) 5 mg Q6 IV Last administered on 06/01/18 12:51; Admin Dose 5 MG; Start 05/31/18 at 13:00 Collagenase (Santyl) 1 applic DAILY TOP Last administered on 06/01/18at 11:10; Admin Dose 1 APPLIC; Start 06/01/18 at 09:00 Evangelista Scanlon DO Jun 01, 2018 14:22
--- NOTE | 2018-06-01 14:59 | CONS ---
Consult Date/Type/Reason Admit Date/Time May 06, 2018 at 17:38 Initial Consult Date 05/10/18 Type of Consult Pulmonary Requesting Provider: ROLAND GIRON MD Date/Time of Note DATE: 06/01/18 TIME: 14:58 Subjective Patient appears stable this morning no respiratory distress Objective Vital Signs Date Temp Pulse Resp B/P (MAP) Pulse Ox O2 O2 Flow FiO2 Time Delivery Rate 06/01/18 103 12:55 06/01/18 30 12:05 06/01/18 98.9 25 148/76 98 11:47 (100) 06/01/18 Mechanical 04:00 Ventilator Intake and Output 05/31/18 05/31/18 06/01/18 1515:00 23:00 07:00 IntakeIntake Total 1015 ml 100 ml OutputOutput Total 700 ml BalanceBalance 315 ml 100 ml Exam GENERAL: Elderly appearing lady continues mechanical ventilation via tracheostomy VITAL SIGNS: per chart NECK: Supple. No JVD or lymphadenopathy. CARDIAC EXAM: S1, S2. No added sounds or murmurs. CHEST: Diminished air entry bilaterally ABDOMEN: Soft, nontender. No guarding or rebound. EXTREMITIES: No cyanosis, clubbing edema +1 NEUROLOGIC: Generalized weakness. Vent Setting Ventilator Support Mode: AC Fraction of Inspired Oxygen pe: 30 Positive End Expiratory Pressu: 5.0 Results/Medications Result Diagram: 05/31/18 0605/31/18 06 Results 24 hrs Laboratory Tests Test 05/31/18 17:09 Bedside Glucose 136 Medications Current Medications IV Flush (NS 10 ml) 10 ml PRN IV ; Start 05/06/18 at 20:30 Ascorbic Acid (Vitamin C) 500 mg DAILY GTB Last administered on 06/01/18at 11:11; Admin Dose 500 MG; Start 05/07/18 at 09:00 Albuterol/ Ipratropium (Duoneb) 3 ml Q2H RESP THERAPY PRN HHN SHORTNESS OF BREATH; Start 05/06/18 at 23:30 Zinc Sulfate (Zinc Sulfate) 220 mg DAILY GTB Last administered on 06/01/18at 11:11; Admin Dose 220 MG; Start 05/07/18 at 09:00 Ondansetron HCl (Zofran Tab) 4 mg Q6H PRN GTB NAUSEA AND/OR VOMITING Last administered on 4/14/19at 16:47; Admin Dose 4 MG; Start 05/07/18 at 00:15 Multivitamins (Multivitamin) 30 ml DAILY GTB Last administered on 06/01/18 11:10; Admin Dose 30 ML; Start 05/07/18 at 09:00 Miscellaneous Information (Pending Santyl Order For Wound Care) This patient goldman... PRN PRN XX WOUND CARE; Start 05/09/18 at 17:00 Vancomycin HCl (Vancomycin Oral Syringe) 250 mg Q6 PO Last administered on 06/01/18 12:52; Admin Dose 250 MG; Start 05/12/18 at 00:00 Albuterol (Ventolin Hfa) 4 puff Q6H RESP THERAPY INH Last administered on 06/01/18 07:54; Admin Dose 4 PUFF; Start 05/12/18 at 20:00 Ipratropium [place] (Atrovent Hfa) 4 puff Q6H RESP THERAPY INH Last administered on 06/01/18 07:53; Admin Dose 4 PUFF; Start 05/12/18 at 20:00 Heparin Sodium (Porcine) (Heparin (1000 Units/ml)) 2,800 unit AFTER DIALYSIS CATHETER Last administered on 05/29/18 18:24; Admin Dose 2,800 UNIT; Start 05/16/18 at 16:30 Furosemide (Lasix) 40 mg BID DIURETICS IV Last administered on 06/01/18 05:38; Admin Dose 40 MG; Start 05/19/18 at 09:00 Epoetin Zen-epbx (RETACRIT(esrd)) 20,000 unit Tu@1700 SC Last administered on 05/26/18 17:28; Admin Dose 20,000 UNIT; Start 05/19/18 at 17:00 Spironolactone (Aldactone) 50 mg DAILY GTB Last administered on 06/01/18 11:11; Admin Dose 50 MG; Start 05/21/18 at 09:00 Metolazone (Zaroxolyn) 5 mg DAILY@0600 PO Last administered on 05/28/18 05:48; Admin Dose 5 MG; Start 05/22/18 at 09:00; Status Hold Famotidine (Pepcid) 20 mg DAILY PEG Last administered on 06/01/18 11:11; Admin Dose 20 MG; Start 05/23/18 at 09:00 Morphine Sulfate (morphine) 6 mg Q4H PRN PEG SEVERE PAIN LEVEL 7-10 Last administered on 06/01/18at 03:47; Admin Dose 6 MG; Start 05/22/18 at 17:00 Albumin Human 100 ml @ 100 mls/hr DURING DIALYSIS PRN IV hypotension on hd Last administered on 05/29/18at 14:49; Admin Dose 100 MLS/HR; Start 05/27/18 at 07:30 Cholestyramine Resin (Questran Light) 4 gm 0600,1200,1800,2300 PO Last administered on 06/01/18at 12:52; Admin Dose 4 GM; Start 05/27/18 at 18:00 Lorazepam (Ativan) 0.5 mg Q4H PRN IV ANXIETY; Start 05/30/18 at 12:00 Metronidazole 100 ml @ 100 mls/hr Q8 IVPB Last administered on 06/01/18at 14:23; Admin Dose 100 MLS/HR; Start 05/30/18 at 22:00 Acetaminophen (Tylenol Tab) 650 mg Q4H PRN PO MILD PAIN(1-3)OR ELEVATED TEMP; Start 05/31/18 at 13:00 Metoclopramide HCl (Reglan) 5 mg Q6 IV Last administered on 06/01/18at 12:51; Admin Dose 5 MG; Start 05/31/18 at 13:00 Collagenase (Santyl) 1 applic DAILY TOP Last administered on 06/01/18at 11:10; Admin Dose 1 APPLIC; Start 06/01/18 at 09:00 Amiodarone HCl (Cordarone) 200 mg BID PO ; Start 06/01/18 at 21:00 Metoprolol Tartrate (Lopressor) 50 mg Q8 GTB ; Start 06/01/18 at 14:30 Assessment/Plan Hospital Course (Demo Recall) Assessment 1. Hypoxemic respiratory failure failed multiple weaning trials 2. History of pulmonary fibrosis 3. Anemia questionable GI bleed 4. History of renal failure on hemodialysis 5. Decubitus ulcers Plan 1. Continue mechanical ventilation via tracheostomy. 2. Continue tube feeding 3. Continue wound care DC planning? LAURA JENKINS MD, [facility] Jun 01, 2018 14:59
--- NOTE | 2018-06-01 15:02 | PN ---
DATE: 05/31/2018 SUBJECTIVE: Follow up on acute respiratory failure, dysphagia, acute kidney injury, paroxysmal atria l fibrillation, history of Clostridium difficile colitis, hypertension. The patient is breathing com fortably on vent. Patient recently saw , no obvious bleeding. The patient remains on vent at this time. The patient remains awake and tracks, but does not follow any simple commands. No rep orted bleeding site, no reported vomiting. PHYSICAL EXAMINATION: GENERAL: The patient is awake, alert. VITAL SIGNS: Temperature 99.7, pulse 82, respiration 19, blood pressure 120/66, O2 saturation 100% o n FIO2 30%. The patient is on mechanical vent. HEENT: No eye discharge or redness noted. Conjunctiva normal. Oropharynx negative. NECK: . Moderate secretions, no mass. CHEST: Diminished air entry at bases. No use of accessory muscles. CARDIOVASCULAR: Regular rate and rhythm. S1, S2 normal. ABDOMEN: Soft, nondistended, nontender. G-tube in place. EXTREMITIES: Edema still present. NEUROLOGIC: The patient is awake, alert with functional quadriparesis. LABORATORY DATA: 05/31/2018: WBC 10.7, hemoglobin 8.7, platelet 443. Chemistry on 05/31/2018 revea led sodium of 135, potassium 4.2, BUN 21, creatinine 1.6 up from 1.3, glucose 107. Phosphate 3.7, ma gnesium 1.6, calcium 8.9. IMPRESSION: 1. Acute respiratory failure, status post recent tracheostomy. Continue vent support and wean as to lerated. The patient has been referred to [facility] for possible weaning. 2. Acute kidney injury. Continue hemodialysis as per Dr. Mckeon. The main purpose is to just [place] ve fluid. 3. History of Clostridium difficile colitis due to recurrence of diarrhea. Flagyl has been added to p.o. vancomycin. The patient still has low grade fever. The patient completed meropenem course on 05/19/2018. The patient is being followed by Dr. Doyle from infectious disease standpoint. 4. Paroxysmal atrial fibrillation. The patient is currently in sinus rhythm. Continue Lopressor an d amiodarone. 5. Hypertension. Blood pressure well controlled with metoprolol and Aldactone. 6. Anemia of chronic disease and chronic kidney disease. Continue to monitor. Continue Procrit 20, 000 units subcu once a week. 7. Chronic obstructive pulmonary disease. Continue breathing treatment. 8. Bipolar disorder and anxiety. Patient remains on Ativan on p.r.n. basis at this time since the p atient was too lethargic in the beginning of his hospitalization, her Seroquel and Depakote doses wer e withheld. The patient remains awake, but does not follow commands. Will continue to monitor close ly. Dictated By: ROLAND COX/TABATHA Conf#: [id number] DID#: [id number]
[2018-06-01] MEDS: METOPROLOL 50 MG TAB GTB SCH ×2 (15:42→21:15)
--- NOTE | 2018-06-01 16:10 | CONS ---
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 colonization of the airway by pseudomonas and ESBL+klebsiella - h/o possible, recurrent HCAP due to pseudomonas and ESBL+klebsiella - h/o recurrent HCAP due to MRSA and Enterobacter (culture of tracheal aspirate on 07/16/2017 that was collected at [facility]) . Pt took vancomycin and ceftazidime - h/o decannulation prior to admission - h/o tracheostomy on 06/11/2017 - h/o SIRS from UGIB in 2018 - h/o thoracentesis on 07/18/2017, transudative (protein <2, LDH 279) - h/o bleeding from the trach site in 2018 - h/o septic shock due to pneumonia, ARDS, bacteremia, fungemia in 2018 - h/o ARDS in 2018 - h/o smoking - COPD - h/o ILD per medical record - h/o PAF, improved # GI - C diff colitis, diagnosed on 05/11/2018 - h/o intermittent diarrhea, Pt had multiple negative C. diff tests at [facility] at OSH in the past; none was positive until 05/11/2018 - dysphagia - h/o PEG placement 06/13/2018 - protein calorie malnutrition - h/o coffee ground emesis/UGIB on 12/23/2017 due to deep ulceration of distal esophagus and gastritis on EGD 12/26/2017. No e/o H. pylori - h/o possible appendicitis on CT on 11/22/2017, Pt took ertapenem (11/24/2017- 12/01/2017) - h/o extensive adhesions lower abdominal and pelvis between small bowel to each other and to colon and to abdominal wall, anterior pelvic wall chronic abscess secondary to probably an old perforated diverticulitis, torsion of small bowel around these dense adhesion causing multiple obstructive points - h/o laparoscopic exploration and extensive lysis of adhesions and drainage of anterior pelvic wall abscess 09/16/2017. Cultures were negative, no e/o malignancy. Pt took pip/tazo (09/16/2017-09/26/2017) - h/o EGD and exchange of PEG on 09/01/2017 - h/o partial obstruction mid jejunum in L anterior central pelvis with suggestion of a 3 cm soft tissue mass on CT 08/28/2017 - h/o internal stomal deep ulcer behind the internal bumper, gastritis and esophagitis, Rodriguez's cannot be ruled out, per EGD with biopsy 07/23/2017 - h/o GIB s/p flex sig showed polyp; stool OB negative on 06/29/17 - h/o stool OB positive status - h/o SBO and ileus due to pain meds - h/o mildly elevated CEA # renal/ - anasarca - started on HD on 05/15/2018, via Juan in R groin - recurrent NATHAN on CKD - 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 Her strain of CRE was sensitive to colistin, Avycaz, and Vabomere but resistant to Zerbaxa (reported on 05/19/2018) - Hyponatremia - Hyperkalemia, now hypokalemia - Metabolic acidosis - adrenal insufficiency - h/o vaginal bleed in 2018 - h/o colonization of urinary tract by ESBL+klebsiella, VRE - h/o recurrent, symptomatic UTI due to carbapenem-resistant kleb (MDR strain) per urine culture 10/04/17, 10/09/17, 10/21/2017, P took colistin (10/09/2017- 10/15/2017), fosfomycin for carbapenemase-producing klebsiella and VRE on 10/25/2017 and 10/28/2017 - h/o funguria - h/o urinary retention # fungemia, bacteremia 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 improved. Probable manifestation of endocarditis. Pt declined MRI on 08/06/2017 - h/o infection of R toes due to pseudomonas. coagulase negative Staph likely a colonizer - h/o intertrigo of the groin, resolved with nystatin powder - h/o scabies, locally crusted lesion over L scapula, s/p permethrin cream and pGT ivermectin on 08/11/2017, 08/12/2017, 08/19/2017. Repeat skin scraping on 08/21/2017 was negative for scabies # psych, neuro - acute toxic metabolic encephalopathy - improving - decreased hearing b/l - h/o critical illness polyneuropathy - anxiety/depression, bipolar d/o, seen by Psychiatry in the past - chronic pain syndrome - h/o medical non-compliance: she would refuse her medications, treatment and straight catheterization in 2018 # hematological, vascular - chronic anemia requiring blood transfusion intermittently - Macrocytic anemia - 3.1 cm AAA on imaging - PVD Recommendations: - continue pGT vancomycin (05/11/2018-) for C. diff colitis - continue IV metronidazole (05/11/2018-05/29/2018; restart 05/30/2018-) for now; can likely DC soon as diarrhea is improving. Pt completed meropenem for HCAP (05/13/2018-05/19/2018). - order written yesterday to send linn cultures if temp >100.3 F - trend fever curve - consider removing R groin HD catheter if feasible Management d/w with JAYANT Nelson and with Dr. Doyle Consultation Date/Type/Reason Admit Date/Time May 06, 2018 at 17:38 Initial Consult Date 05/07/18 Type of Consult Infectious Disease Requesting Provider: ROLAND GIRON MD Date/Time of Note DATE: 06/01/18 TIME: 16:09 24 HR Interval Summary Free Text/Dictation R femoral catheter site wound cx grew 2+ Pseudomonas and rare Kleb Pneumonaie CRE. No recurrent low grade temp. WBC is normal. Nods yes to pain being tolerable. ROS limited d/t pt being sleepy and non- verbal. Subjective hx not possible: pt non-verbal Exam/Review of Systems Exam Vitals Vital Signs Date Temp Pulse Resp B/P (MAP) Pulse Ox O2 O2 Flow FiO2 Time Delivery Rate 06/01/18 92 22 88 30 13:30 06/01/18 98.9 148/76 11:47 (100) 06/01/18 Mechanical 04:00 Ventilator Intake and Output 05/31/18 05/31/18 06/01/18 1515:00 23:00 07:00 IntakeIntake Total 1015 ml 100 ml OutputOutput Total 700 ml BalanceBalance 315 ml 100 ml Exam Constitutional: well developed, non-verbal, frail, obese, other (chronically debilitated; sleeping but easily arousable) Head: normocephalic, atraumatic Eyes: nl conjunctiva, nl lids ENMT: nl external ears & nose, intubated Neck: other (trach is midline and connected to ventilator support) Respiratory: diminished breath sounds, other (no wheezing) Cardiovascular: regular rate and rhythm, nl pulses Gastrointestinal: soft, non-tender, bowel sounds, other (PEG site is c/d/i); other (Flexiseal with scant liquid brown stool in tubing, none in the bag) No distended Genitourinary - Female: other (Garza in place with yellow urine; HD catheter in R groin with dressing intact; +intertrigo of groin) Musculoskeletal: other (eschar on toes; bilateral foot drop) Extremities: edema (all four extremities) Neurological: other (+tracking, selectively nods to simple questions) Skin: nl turgor, dry, other (wounds- nurses notes and photos reviewed in chart; LLE dressing c/d/i) Results Result Diagram: 05/31/18 0605/31/18 06 Results 24hrs Laboratory Tests Test 05/31/18 17:09 Bedside Glucose 136 Medications Medication Current Medications IV Flush (NS 10 ml) 10 ml PRN IV ; Start 05/06/18 at 20:30 Ascorbic Acid (Vitamin C) 500 mg DAILY GTB Last administered on 06/01/18 11:11; Admin Dose 500 MG; Start 05/07/18 at 09:00 Albuterol/ Ipratropium (Duoneb) 3 ml Q2H RESP THERAPY PRN HHN SHORTNESS OF BREATH; Start 05/06/18 at 23:30 Zinc Sulfate (Zinc Sulfate) 220 mg DAILY GTB Last administered on 06/01/18 11:11; Admin Dose 220 MG; Start 05/07/18 at 09:00 Ondansetron HCl (Zofran Tab) 4 mg Q6H PRN GTB NAUSEA AND/OR VOMITING Last ad ministered on 05/31/18 16:47; Admin Dose 4 MG; Start 05/07/18 at 00:15 Multivitamins (Multivitamin) 30 ml DAILY GTB Last administered on 06/01/18 11:10; Admin Dose 30 ML; Start 05/07/18 at 09:00 [facility] This patient goldman... PRN PRN XX WOUND CARE; Start 05/09/18 at 17:00 Vancomycin HCl (Vancomycin Oral Syringe) 250 mg Q6 PO Last administered on 06/01/18 12:52; Admin Dose 250 MG; Start 05/12/18 at 00:00 Albuterol (Ventolin Hfa) 4 puff Q6H RESP THERAPY INH Last administered on 06/01/18 07:54; Admin Dose 4 PUFF; Start 05/12/18 at 20:00 Ipratropium [place] (Atrovent Hfa) 4 puff Q6H RESP THERAPY INH Last administered on 06/01/18 07:53; Admin Dose 4 PUFF; Start 05/12/18 at 20:00 Heparin Sodium (Porcine) (Heparin (1000 Units/ml)) 2,800 unit AFTER DIALYSIS CATHETER Last administered on 05/29/18 18:24; Admin Dose 2,800 UNIT; Start 05/16/18 at 16:30 Furosemide (Lasix) 40 mg BID DIURETICS IV Last administered on 4/15/19at 05:38 ; Admin Dose 40 MG; Start 05/19/18 at 09:00 Epoetin Zen-epbx (RETACRIT(esrd)) 20,000 unit Tu@1700 SC Last administered on 05/26/18 17:28; Admin Dose 20,000 UNIT; Start 05/19/18 at 17:00 Spironolactone (Aldactone) 50 mg DAILY GTB Last administered on 06/01/18 11:11; Admin Dose 50 MG; Start 05/21/18 at 09:00 Metolazone (Zaroxolyn) 5 mg DAILY@0600 PO Last administered on 05/28/18 05:48; Admin Dose 5 MG; Start 05/22/18 at 09:00; Status Hold Famotidine (Pepcid) 20 mg DAILY PEG Last administered on 06/01/18 11:11; Admin Dose 20 MG; Start 05/23/18 at 09:00 Morphine Sulfate (morphine) 6 mg Q4H PRN PEG SEVERE PAIN LEVEL 7-10 Last administered on 06/01/18 03:47; Admin Dose 6 MG; Start 05/22/18 at 17:00 Albumin Human 100 ml @ 100 mls/hr DURING DIALYSIS PRN IV hypotension on hd Last administered on 05/29/18 14:49; Admin Dose 100 MLS/HR; Start 05/27/18 at 07:30 Cholestyramine Resin (Questran Light) 4 gm 0600,1200,1800,2300 PO Last administered on 06/01/18 12:52; Admin Dose 4 GM; Start 05/27/18 at 18:00 Lorazepam (Ativan) 0.5 mg Q4H PRN IV ANXIETY; Start 05/30/18 at 12:00 Metronidazole 100 ml @ 100 mls/hr Q8 IVPB Last administered on 06/01/18 14:23; Admin Dose 100 MLS/HR; Start 05/30/18 at 22:00 Acetaminophen (Tylenol Tab) 650 mg Q4H PRN PO MILD PAIN(1-3)OR ELEVATED TEMP; Start 05/31/18 at 13:00 Metoclopramide HCl (Reglan) 5 mg Q6 IV Last administered on 06/01/18 12:51; Admin Dose 5 MG; Start 05/31/18 at 13:00 Collagenase (Santyl) 1 applic DAILY TOP Last administered on 06/01/18at 11:10; Admin Dose 1 APPLIC; Start 06/01/18 at 09:00 Amiodarone HCl (Cordarone) 200 mg BID PO ; Start 06/01/18 at 21:00 Metoprolol Tartrate (Lopressor) 50 mg Q8 GTB Last administered on 06/01/18at 15:42; Admin Dose 50 MG; Start 06/01/18 at 14:30 LAURA JOSHI NP Jun 01, 2018 16:10
--- NOTE | 2018-06-01 16:47 | PN ---
Date/Time of Note Date/Time of Note DATE: 06/01/18 TIME: 16:43 Assessment/Plan VTE Prophylaxis Risk score (from Ns)>0 risk: 12 SCD applied (from Nsg): Yes Pharmacological prophylaxis: heparin Lines/Catheters IV Catheter Type (from Nrsg): Juan Central line still needed: Yes Urinary Cath still in place: Yes Reason Cath still needed: urinary retention Assessment/Plan Hospital Course Patient is awake alert, continues on ventilatory support via tracheostomy,per conversation with RN diarrhea is improving. Pending Batista evaluation. Assessment/Plan -Atrial fibrillation was rapid ventricular response, s/p amiodarone drip. Rate is well controlled on p.o. amiodarone and metoprolol. Dr. Scanlon is following in cardiology consultation. -Septic shock secondary to urinary tract infection, anterior neck soft tissue infection, and C. difficile colitis, resolving. Continue antibiotics per ID. Dr. Black is following in infection disease consultation. -Acute respiratory failure requiring intubation and ventilatory support. Dr. Lambert is following in pulmonology consultation. -S/p tracheostomy on 05/29/18. -Acute kidney injury on chronic kidney disease. Started on HD this admission. Dr. Mckeon is following in nephrology consultation. -Anemia of chronic inflammation, stool for OB is negative, status post blood transfusion. Continue Epogen. -Metabolic acidosis, resolved. -Acute diastolic congestive heart failure. -Paroxysmal atrial fibrillation -COPD -Dysphagia with PEG. -G-tube mild malfunction, changed by GI Dr. Carolina is following in gastroenterology consultation. -Obesity Critical care time spent is 30 minutes. Further recommendations based on clinical course. Plan of care discussed with Dr. Eisenberg. Result Diagram: 05/31/18 0601 05/31/18 06 Results 24hrs Laboratory Tests Test 05/31/18 17:09 Bedside Glucose 136 Exam/Review of Systems Exam Vitals Vital Signs Date Temp Pulse Resp B/P (MAP) Pulse Ox O2 O2 Flow FiO2 Time Delivery Rate 06/01/18 30 16:37 06/01/18 102 16:22 06/01/18 98.7 30 143/74 98 16:09 (97) 06/01/18 Mechanical 04:00 Ventilator Intake and Output 05/31/18 05/31/18 06/01/18 1515:00 23:00 07:00 IntakeIntake Total 1015 ml 100 ml OutputOutput Total 700 ml BalanceBalance 315 ml 100 ml Exam Constitutional: awake, alert Respiratory: diminished breath sounds Cardiovascular: regular rate and rhythm Gastrointestinal: soft, tender, other (G-tube) Musculoskeletal: nl extremities to inspection Extremities: normal pulses Results Results 24hrs Laboratory Tests Test 05/31/18 17:09 Bedside Glucose 136 Medications Medication Current Medications IV Flush (NS 10 ml) 10 ml PRN IV ; Start 05/06/18 at 20:30 Ascorbic Acid (Vitamin C) 500 mg DAILY GTB Last administered on 06/01/18 11:11; Admin Dose 500 MG; Start 05/07/18 at 09:00 Albuterol/ Ipratropium (Duoneb) 3 ml Q2H RESP THERAPY PRN HHN SHORTNESS OF BREATH; Start 05/06/18 at 23:30 Zinc Sulfate (Zinc Sulfate) 220 mg DAILY GTB Last administered on 06/01/18 11:11; Admin Dose 220 MG; Start 05/07/18 at 09:00 Ondansetron HCl (Zofran Tab) 4 mg Q6H PRN GTB NAUSEA AND/OR VOMITING Last administered on 05/31/18 16:47; Admin Dose 4 MG; Start 05/07/18 at 00:15 Multivitamins (Multivitamin) 30 ml DAILY GTB Last administered on 06/01/18 11:10; Admin Dose 30 ML; Start 05/07/18 at 09:00 Miscellaneous Information (Pending [facility] Order For Wound Care) This patient goldman... PRN PRN XX WOUND CARE; Start 05/09/18 at 17:00 Vancomycin HCl (Vancomycin Oral Syringe) 250 mg Q6 PO Last administered on 06/01/18 12:52; Admin Dose 250 MG; Start 05/12/18 at 00:00 Albuterol (Ventolin Hfa) 4 puff Q6H RESP THERAPY INH Last administered on 06/01/18 07:54; Admin Dose 4 PUFF; Start 05/12/18 at 20:00 Ipratropium [place] (Atrovent Hfa) 4 puff Q6H RESP THERAPY INH Last administered on 06/01/18 07:53; Admin Dose 4 PUFF; Start 05/12/18 at 20:00 Heparin Sodium (Porcine) (Heparin (1000 Units/ml)) 2,800 unit AFTER DIALYSIS CATHETER Last administered on 05/29/18 18:24; Admin Dose 2,800 UNIT; Start 05/16/18 at 16:30 Furosemide (Lasix) 40 mg BID DIURETICS IV Last administered on 06/01/18 05:38; Admin Dose 40 MG; Start 05/19/18 at 09:00 Epoetin Zen-epbx (RETACRIT(esrd)) 20,000 unit Tu@1700 SC Last administered on 05/26/18 17:28; Admin Dose 20,000 UNIT; Start 05/19/18 at 17:00 Spironolactone (Aldactone) 50 mg DAILY GTB Last administered on 06/01/18 11:11; Admin Dose 50 MG; Start 05/21/18 at 09:00 Metolazone (Zaroxolyn) 5 mg DAILY@0600 PO Last administered on 05/28/18 05:48; Admin Dose 5 MG; Start 05/22/18 at 09:00; Status Hold Famotidine (Pepcid) 20 mg DAILY PEG Last administered on 06/01/18 11:11; Admin Dose 20 MG; Start 05/23/18 at 09:00 Morphine Sulfate (morphine) 6 mg Q4H PRN PEG SEVERE PAIN LEVEL 7-10 Last administered on 06/01/18 03:47; Admin Dose 6 MG; Start 05/22/18 at 17:00 Albumin Human 100 ml @ 100 mls/hr DURING DIALYSIS PRN IV hypotension on hd Last administered on 05/29/18 14:49; Admin Dose 100 MLS/HR; Start 05/27/18 at 07:30 Cholestyramine Resin (Questran Light) 4 gm 0600,1200,1800,2300 PO Last administered on 06/01/18 12:52; Admin Dose 4 GM; Start 05/27/18 at 18:00 Lorazepam (Ativan) 0.5 mg Q4H PRN IV ANXIETY; Start 05/30/18 at 12:00 Metronidazole 100 ml @ 100 mls/hr Q8 IVPB Last administered on 06/01/18 14:23; Admin Dose 100 MLS/HR; Start 05/30/18 at 22:00 Acetaminophen (Tylenol Tab) 650 mg Q4H PRN PO MILD PAIN(1-3)OR ELEVATED TEMP; Start 05/31/18 at 13:00 Metoclopramide HCl (Reglan) 5 mg Q6 IV Last administered on 06/01/18at 12:51; Admin Dose 5 MG; Start 05/31/18 at 13:00 Collagenase (Santyl) 1 applic DAILY TOP Last administered on 06/01/18at 11:10; Admin Dose 1 APPLIC; Start 06/01/18 at 09:00 Amiodarone HCl (Cordarone) 200 mg BID PO ; Start 06/01/18 at 21:00 Metoprolol Tartrate (Lopressor) 50 mg Q8 GTB Last administered on 06/01/18at 15:42; Admin Dose 50 MG; Start 06/01/18 at 14:30 GRISELDA DENNIS Jun 01, 2018 16:47
[2018-06-02] VITALS (25 sets, daily range): BP systolic 119–153; BP diastolic 62–86; PULSE 72–101; RESP 16–27
[2018-06-02] MEDS: ALBUTEROL HFA 8 GM INHALER INH SCH ×4 (01:05→19:33)
[2018-06-02] MEDS: IPRATROPIUM (HFA) 12.9 GM INHALER INH SCH ×4 (01:05→19:33)
[2018-06-02] MEDS: morphine LIQ (10 MG/5 ML) CUP PEG PRN ×2 (03:04→20:32)
[2018-06-02] MEDS: FUROSEMIDE 40 MG INJ IV SCH ×2 (05:41→17:01)
[2018-06-02] MEDS: METOCLOPRAMIDE 10 MG INJ IV SCH ×4 (05:41→23:42)
[2018-06-02] MEDS: metroNIDAZOLE 500 MG/NS (PMX) 100 ML IVPB SCH ×3 (05:42→21:14)
[2018-06-02] MEDS: VANCOMYCIN HCL 250 MG/5ML POSYG PO SCH ×4 (05:42→23:41)
[2018-06-02] MEDS: CHOLESTYRAMINE (LIGHT) 4 GM PACKET PO SCH ×4 (05:42→22:12)
[2018-06-02] MEDS: METOPROLOL 50 MG TAB GTB SCH ×3 (05:42→21:14)
[2018-06-02] MEDS: BALSAM PERU/CASTOR OIL 60 GM TUBE TOP SCH ×2 (09:00→20:32)
[2018-06-02] MEDS: COLLAGENASE 5 GM (UD JAR) TOP SCH (09:00)
[2018-06-02] MEDS: ASCORBIC ACID 500 MG TAB GTB SCH (10:11)
[2018-06-02] MEDS: ZINC SULFATE 220 MG CAP GTB SCH (10:11)
[2018-06-02] MEDS: MULTIVITAMINS 30 ML CUP GTB SCH (10:11)
[2018-06-02] MEDS: AMIODARONE 200 MG TAB PO SCH ×2 (10:11→20:32)
[2018-06-02] MEDS: FAMOTIDINE 20 MG TAB PEG SCH (10:11)
[2018-06-02] MEDS: SPIRONOLACTONE 25 MG TAB GTB SCH (10:12)
--- NOTE | 2018-06-02 11:54 | CONS ---
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 colonization of the airway by pseudomonas and ESBL+klebsiella - h/o possible, recurrent HCAP due to pseudomonas and ESBL+klebsiella - h/o recurrent HCAP due to MRSA and Enterobacter (culture of tracheal aspirate on 07/16/2017 that was collected at [facility]) . Pt took vancomycin and ceftazidime - h/o decannulation prior to admission - h/o tracheostomy on 06/11/2017 - h/o SIRS from UGIB in 2018 - h/o thoracentesis on 07/18/2017, transudative (protein <2, LDH 279) - h/o bleeding from the trach site in 2018 - h/o septic shock due to pneumonia, ARDS, bacteremia, fungemia in 2018 - h/o ARDS in 2018 - h/o smoking - COPD - h/o ILD per medical record - h/o PAF, improved # GI - C diff colitis, diagnosed on 05/11/2018 - h/o intermittent diarrhea, Pt had multiple negative C. diff tests at [facility] at [facility]SH in the past; none was positive until 05/11/2018 - dysphagia - h/o PEG placement 06/13/2018 - protein calorie malnutrition - h/o coffee ground emesis/UGIB on 12/23/2017 due to deep ulceration of distal esophagus and gastritis on EGD 12/26/2017. No e/o H. pylori - h/o possible appendicitis on CT on 11/22/2017, Pt took ertapenem (11/24/2017- 12/01/2017) - h/o extensive adhesions lower abdominal and pelvis between small bowel to each other and to colon and to abdominal wall, anterior pelvic wall chronic abscess secondary to probably an old perforated diverticulitis, torsion of small bowel around these dense adhesion causing multiple obstructive points - h/o laparoscopic exploration and extensive lysis of adhesions and drainage of anterior pelvic wall abscess 09/16/2017. Cultures were negative, no e/o malignancy. Pt took pip/tazo (09/16/2017-09/26/2017) - h/o EGD and exchange of PEG on 09/01/2017 - h/o partial obstruction mid jejunum in L anterior central pelvis with suggestion of a 3 cm soft tissue mass on CT 08/28/2017 - h/o internal stomal deep ulcer behind the internal bumper, gastritis and esophagitis, Rodriguez's cannot be ruled out, per EGD with biopsy 07/23/2017 - h/o GIB s/p flex sig showed polyp; stool OB negative on 06/29/17 - h/o stool OB positive status - h/o SBO and ileus due to pain meds - h/o mildly elevated CEA # renal/ - anasarca - started on HD on 05/15/2018, via Juan in R groin - recurrent NATHAN on CKD - 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 Her strain of CRE was sensitive to colistin, Avycaz, and Vabomere but resistant to Zerbaxa (reported on 05/19/2018) - Hyponatremia - Hyperkalemia, now hypokalemia - Metabolic acidosis - adrenal insufficiency - h/o vaginal bleed in 2018 - h/o colonization of urinary tract by ESBL+klebsiella, VRE - h/o recurrent, symptomatic UTI due to carbapenem-resistant kleb (MDR strain) per urine culture 10/04/17, 10/09/17, 10/21/2017, P took colistin (10/09/2017- 10/15/2017), fosfomycin for carbapenemase-producing klebsiella and VRE on 10/25/2017 and 10/28/2017 - h/o funguria - h/o urinary retention # fungemia, bacteremia 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 improved. Probable manifestation of endocarditis. Pt declined MRI on 08/06/2017 - h/o infection of R toes due to pseudomonas. coagulase negative Staph likely a colonizer - h/o intertrigo of the groin, resolved with nystatin powder - h/o scabies, locally crusted lesion over L scapula, s/p permethrin cream and pGT ivermectin on 08/11/2017, 08/12/2017, 08/19/2017. Repeat skin scraping on 08/21/2017 was negative for scabies # psych, neuro - acute toxic metabolic encephalopathy - improving - decreased hearing b/l - h/o critical illness polyneuropathy - anxiety/depression, bipolar d/o, seen by Psychiatry in the past - chronic pain syndrome - h/o medical non-compliance: she would refuse her medications, treatment and straight catheterization in 2018 # hematological, vascular - chronic anemia requiring blood transfusion intermittently - Macrocytic anemia - 3.1 cm AAA on imaging - PVD Recommendations: - monitor wbc curve closely; avoid additional abx at this time - monitor fever curve closely - continue pGT vancomycin (05/11/2018-) for C. diff colitis - continue IV metronidazole (05/11/2018-05/29/2018; restart 05/30/2018-) for now; can likely DC soon as diarrhea is improving. Pt completed meropenem for HCAP (05/13/2018-05/19/2018). - order written yesterday to send linn cultures if temp >100.3 F - trend fever curve - consider removing R groin HD catheter if feasible Consultation Date/Type/Reason Admit Date/Time May 06, 2018 at 17:38 Initial Consult Date 05/10/18 Type of Consult ID Requesting Provider: ROLAND GIRON MD Date/Time of Note DATE: 06/02/18 TIME: 11:52 Exam/Review of Systems Exam Vitals Vital Signs Date Temp Pulse Resp B/P (MAP) Pulse Ox O2 O2 Flow FiO2 Time Delivery Rate 06/02/18 72 09:49 06/02/18 98.6 24 136/86 98 07:43 (103) 06/02/18 30 05:36 06/01/18 Mechanical 04:00 Ventilator Intake and Output 06/01/18 06/01/18 06/02/18 1515:00 23:00 07:00 IntakeIntake Total 610 ml 100 ml 200 ml OutputOutput Total 900 ml 1300 ml 950 ml BalanceBalance -290 ml -1200 ml -750 ml Exam sleeping peacefully Results Result Diagram: 06/02/18 0736 06/02/18 0736 Results 24hrs Laboratory Tests Test 06/02/18 07:36 White Blood Count 13.4 #H Red Blood Count 2.66 L Hemoglobin 8.5 L Hematocrit 27.8 L Mean Corpuscular Volume 104.5 H Mean Corpuscular Hemoglobin 32.0 Mean Corpuscular Hemoglobin Concent 30.6 L Red Cell Distribution Width 19.3 H Platelet Count 507 H Mean Platelet Volume 9.7 Immature Granulocytes % 1.200 H Neutrophils % 81.8 H Lymphocytes % 7.3 L Monocytes % 7.6 Eosinophils % 1.8 Basophils % 0.3 Nucleated Red Blood Cells % 0.0 Immature Granulocytes # 0.160 H Neutrophils # 10.9 H Lymphocytes # 1.0 Monocytes # 1.0 H Eosinophils # 0.2 Basophils # 0.0 Nucleated Red Blood Cells # 0.0 Sodium Level 133 L Potassium Level 3.8 Chloride Level 100 Carbon Dioxide Level 21 Anion Gap 12 Blood Urea Nitrogen 31 H Creatinine 1.86 H Est Glomerular Filtrat Rate mL/min Glucose Level 101 Calcium Level 9.0 Medications Medication Current Medications IV Flush (NS 10 ml) 10 ml PRN IV ; Start 05/06/18 at 20:30 Ascorbic Acid (Vitamin C) 500 mg DAILY GTB Last administered on 06/02/18at 10:11; Admin Dose 500 MG; Start 05/07/18 at 09:00 Albuterol/ Ipratropium (Duoneb) 3 ml Q2H RESP THERAPY PRN HHN SHORTNESS OF BREATH; Start 05/06/18 at 23:30 Zinc Sulfate (Zinc Sulfate) 220 mg DAILY GTB Last administered on 06/02/18 10:11; Admin Dose 220 MG; Start 05/07/18 at 09:00 Ondansetron HCl (Zofran Tab) 4 mg Q6H PRN GTB NAUSEA AND/OR VOMITING Last administered on 05/31/18 16:47; Admin Dose 4 MG; Start 05/07/18 at 00:15 Multivitamins (Multivitamin) 30 ml DAILY GTB Last administered on 06/02/18 10:11; Admin Dose 30 ML; Start 05/07/18 at 09:00 Miscellaneous Information (Pending [facility]) This patient goldman... PRN PRN XX WOUND CARE; Start 05/09/18 at 17:00 Vancomycin HCl (Vancomycin Oral Syringe) 250 mg Q6 PO Last administered on 06/02/18 05:42; Admin Dose 250 MG; Start 05/12/18 at 00:00 Albuterol (Ventolin Hfa) 4 puff Q6H RESP THERAPY INH Last administered on 06/02/18 08:37; Admin Dose 4 PUFF; Start 05/12/18 at 20:00 Ipratropium [place] (Atrovent Hfa) 4 puff Q6H RESP THERAPY INH Last administered on 06/02/18 08:37; Admin Dose 4 PUFF; Start 05/12/18 at 20:00 Heparin Sodium (Porcine) (Heparin (1000 Units/ml)) 2,800 unit AFTER DIALYSIS CATHETER Last administered on 05/29/18 18:24; Admin Dose 2,800 UNIT; Start 05/16/18 at 16:30 Furosemide (Lasix) 40 mg BID DIURETICS IV Last administered on 06/02/18 05 :41; Admin Dose 40 MG; Start 05/19/18 at 09:00 Epoetin Zen-epbx (RETACRIT(esrd)) 20,000 unit Tu@1700 SC Last administered on 05/26/18 17:28; Admin Dose 20,000 UNIT; Start 05/19/18 at 17:00 Spironolactone (Aldactone) 50 mg DAILY GTB Last administered on 06/02/18 10:12; Admin Dose 50 MG; Start 05/21/18 at 09:00 Metolazone (Zaroxolyn) 5 mg DAILY@0600 PO Last administered on 05/28/18 05:48; Admin Dose 5 MG; Start 05/22/18 at 09:00; Status Hold Famotidine (Pepcid) 20 mg DAILY PEG Last administered on 06/02/18 10:11; Admin Dose 20 MG; Start 05/23/18 at 09:00 Morphine Sulfate (morphine) 6 mg Q4H PRN PEG SEVERE PAIN LEVEL 7-10 Last administered on 06/02/18 03:04; Admin Dose 6 MG; Start 05/22/18 at 17:00 Albumin Human 100 ml @ 100 mls/hr DURING DIALYSIS PRN IV hypotension on hd Last administered on 05/29/18 14:49; Admin Dose 100 MLS/HR; Start 05/27/18 at 07:30 Cholestyramine Resin (Questran Light) 4 gm 0600,1200,1800,2300 PO Last administered on 06/02/18 05:42; Admin Dose 4 GM; Start 05/27/18 at 18:00 Lorazepam (Ativan) 0.5 mg Q4H PRN IV ANXIETY; Start 05/30/18 at 12:00 Metronidazole 100 ml @ 100 mls/hr Q8 IVPB Last administered on 06/02/18 05:42; Admin Dose 100 MLS/HR; Start 05/30/18 at 22:00 Acetaminophen (Tylenol Tab) 650 mg Q4H PRN PO MILD PAIN(1-3)OR ELEVATED TEMP; Start 05/31/18 at 13:00 Metoclopramide HCl (Reglan) 5 mg Q6 IV Last administered on 06/02/18 05:41; Ad min Dose 5 MG; Start 05/31/18 at 13:00 Collagenase (Santyl) 1 applic DAILY TOP Last administered on 06/02/18 09:00; Admin Dose 1 APPLIC; Start 06/01/18 at 09:00 Amiodarone HCl (Cordarone) 200 mg BID PO Last administered on 06/02/18 10:11; Admin Dose 200 MG; Start 06/01/18 at 21:00 Metoprolol Tartrate (Lopressor) 50 mg Q8 GTB Last administered on 06/02/18at 05:42; Admin Dose 50 MG; Start 06/01/18 at 14:30 MANN VALDEZ MD Jun 02, 2018 11:54
--- NOTE | 2018-06-02 12:16 | CONS ---
Consult Date/Type/Reason Admit Date/Time May 06, 2018 at 17:38 Initial Consult Date 05/10/18 Type of Consult Pulmonary Requesting Provider: ROLAND GIRON MD Date/Time of Note DATE: 06/02/18 TIME: 12:15 Subjective Stable on mechanical ventilation no respiratory distress Objective Vital Signs Date Temp Pulse Resp B/P (MAP) Pulse Ox O2 O2 Flow FiO2 Time Delivery Rate 06/02/18 98.3 80 22 119/64 97 12:00 (82) 06/02/18 30 08:00 06/01/18 Mechanical 04:00 Ventilator Intake and Output 06/01/18 06/01/18 06/02/18 1515:00 23:00 07:00 IntakeIntake Total 610 ml 100 ml 200 ml OutputOutput Total 900 ml 1300 ml 950 ml BalanceBalance -290 ml -1200 ml -750 ml Exam GENERAL: Elderly appearing lady continues mechanical ventilation via tracheostomy VITAL SIGNS: per chart NECK: Supple. No JVD or lymphadenopathy. CARDIAC EXAM: S1, S2. No added sounds or murmurs. CHEST: Diminished air entry bilaterally ABDOMEN: Soft, nontender. No guarding or rebound. EXTREMITIES: No cyanosis, clubbing edema +1 NEUROLOGIC: Generalized weakness. Vent Setting Ventilator Support Mode: AC Fraction of Inspired Oxygen pe: 30 Positive End Expiratory Pressu: 5.0 Results/Medications Result Diagram: 06/02/1836 06/02/18 0736 Results 24 hrs Laboratory Tests Test 06/02/18 07:36 White Blood Count 13.4 #H Red Blood Count 2.66 L Hemoglobin 8.5 L Hematocrit 27.8 L Mean Corpuscular Volume 104.5 H Mean Corpuscular Hemoglobin 32.0 Mean Corpuscular Hemoglobin Concent 30.6 L Red Cell Distribution Width 19.3 H Platelet Count 507 H Mean Platelet Volume 9.7 Immature Granulocytes % 1.200 H Neutrophils % 81.8 H Lymphocytes % 7.3 L Monocytes % 7.6 Eosinophils % 1.8 Basophils % 0.3 Nucleated Red Blood Cells % 0.0 Immature Granulocytes # 0.160 H Neutrophils # 10.9 H Lymphocytes # 1.0 Monocytes # 1.0 H Eosinophils # 0.2 Basophils # 0.0 Nucleated Red Blood Cells # 0.0 Sodium Level 133 L Potassium Level 3.8 Chloride Level 100 Carbon Dioxide Level 21 Anion Gap 12 Blood Urea Nitrogen 31 H Creatinine 1.86 H Est Glomerular Filtrat Rate mL/min Glucose Level 101 Calcium Level 9.0 Medications Current Medications IV Flush (NS 10 ml) 10 ml PRN IV ; Start 05/06/18 at 20:30 Ascorbic Acid (Vitamin C) 500 mg DAILY GTB Last administered on 06/02/18 10:11; Admin Dose 500 MG; Start 05/07/18 at 09:00 Albuterol/ Ipratropium (Duoneb) 3 ml Q2H RESP THERAPY PRN HHN SHORTNESS OF BREATH; Start 05/06/18 at 23:30 Zinc Sulfate (Zinc Sulfate) 220 mg DAILY GTB Last administered on 06/02/18 10:11; Admin Dose 220 MG; Start 05/07/18 at 09:00 Ondansetron HCl (Zofran Tab) 4 mg Q6H PRN GTB NAUSEA AND/OR VOMITING Last administered on 05/31/18 16:47; Admin Dose 4 MG; Start 05/07/18 at 00:15 Multivitamins (Multivitamin) 30 ml DAILY GTB Last administered on 06/02/18 10:11; Admin Dose 30 ML; Start 05/07/18 at 09:00 Miscellaneous Information [facility] This patient goldman... PRN PRN XX WOUND CARE; Start 05/09/18 at 17:00 Vancomycin HCl (Vancomycin Oral Syringe) 250 mg Q6 PO Last administered on 06/02/18 05:42; Admin Dose 250 MG; Start 05/12/18 at 00:00 Albuterol (Ventolin Hfa) 4 puff Q6H RESP THERAPY INH Last administered on 06/02/18 08:37; Admin Dose 4 PUFF; Start 05/12/18 at 20:00 Ipratropium [place] (Atrovent Hfa) 4 puff Q6H RESP THERAPY INH Last administered on 06/02/18 08:37; Admin Dose 4 PUFF; Start 05/12/18 at 20:00 Heparin Sodium (Porcine) (Heparin (1000 Units/ml)) 2,800 unit AFTER DIALYSIS CATHETER Last administered on 05/29/18 18:24; Admin Dose 2,800 UNIT; Start 05/16/18 at 16:30 Furosemide (Lasix) 40 mg BID DIURETICS IV Last administered on 06/02/18 05:41; Admin Dose 40 MG; Start 05/19/18 at 09:00 Epoetin Zen-epbx (RETACRIT(esrd)) 20,000 unit Tu@1700 SC Last administered on 05/26/18 17:28; Admin Dose 20,000 UNIT; Start 05/19/18 at 17:00 Spironolactone (Aldactone) 50 mg DAILY GTB Last administered on 06/02/18 10: 12; Admin Dose 50 MG; Start 05/21/18 at 09:00 Metolazone (Zaroxolyn) 5 mg DAILY@0600 PO Last administered on 05/28/18 05:48; Admin Dose 5 MG; Start 05/22/18 at 09:00; Status Hold Famotidine (Pepcid) 20 mg DAILY PEG Last administered on 06/02/18 10:11; Admin Dose 20 MG; Start 05/23/18 at 09:00 Morphine Sulfate (morphine) 6 mg Q4H PRN PEG SEVERE PAIN LEVEL 7-10 Last administered on 06/02/18 03:04; Admin Dose 6 MG; Start 05/22/18 at 17:00 Albumin Human 100 ml @ 100 mls/hr DURING DIALYSIS PRN IV hypotension on hd Last administered on 05/29/18 14:49; Admin Dose 100 MLS/HR; Start 05/27/18 at 07:30 Cholestyramine Resin (Questran Light) 4 gm 0600,1200,1800,2300 PO Last administered on 06/02/18 05:42; Admin Dose 4 GM; Start 05/27/18 at 18:00 Lorazepam (Ativan) 0.5 mg Q4H PRN IV ANXIETY; Start 05/30/18 at 12:00 Metronidazole 100 ml @ 100 mls/hr Q8 IVPB Last administered on 06/02/18 05:4 2; Admin Dose 100 MLS/HR; Start 05/30/18 at 22:00 Acetaminophen (Tylenol Tab) 650 mg Q4H PRN PO MILD PAIN(1-3)OR ELEVATED TEMP; Start 05/31/18 at 13:00 Metoclopramide HCl (Reglan) 5 mg Q6 IV Last administered on 06/02/18 05:41; Admin Dose 5 MG; Start 05/31/18 at 13:00 Collagenase (Santyl) 1 applic DAILY TOP Last administered on 06/02/18at 09:00; Admin Dose 1 APPLIC; Start 06/01/18 at 09:00 Amiodarone HCl (Cordarone) 200 mg BID PO Last administered on 06/02/18at 10:11; Admin Dose 200 MG; Start 06/01/18 at 21:00 Metoprolol Tartrate (Lopressor) 50 mg Q8 GTB Last administered on 06/02/18at 05:42; Admin Dose 50 MG; Start 06/01/18 at 14:30 Assessment/Plan Hospital Course (Demo Recall) Assessment 1. Hypoxemic respiratory failure failed multiple weaning trials 2. History of pulmonary fibrosis 3. Anemia questionable GI bleed 4. History of renal failure on hemodialysis 5. Decubitus ulcers Plan 1. Continue mechanical ventilation via tracheostomy. 2. Continue tube feeding 3. Continue wound care DC planning? LAURA JENKINS MD, [facility] Jun 02, 2018 12:16
--- NOTE | 2018-06-02 15:36 | CONS ---
Assessment/Plan Assessment/Plan Hospital Course (Demo Recall) Septic as well as hemorrhagic shock-improving Acute respiratory failure status post intubation Acute blood loss anemia Septic shock and hemorrhagic shock History of respiratory failure status post decannulation Preserved ejection fraction echocardiogram 05/10/2018 Paroxysmal atrial fibrillation, currently sinus rhythm Acute kidney injury -Patient status post tracheostomy -Blood pressure trend overall improved and has remained off IV pressor. Increase beta-tin and continue as tolerated, decreased amiodarone to twice a day -Vent management as per pulmonary -Fluid management and electrolytes as per renal -Antibiotics as per infectious disease -No anticoagulation given recurrent anemia requiring blood transfusions Consultation Date/Type/Reason Admit Date/Time May 06, 2018 at 17:38 Initial Consult Date 05/10/18 Type of Consult Cardiology Requesting Provider: ROLAND GIRON MD Date/Time of Note DATE: 06/02/18 TIME: 15:35 24 HR Interval Summary Free Text/Dictation No palpitations, shortness of breath Exam/Review of Systems Vital Signs Vitals Vital Signs Date Temp Pulse Resp B/P (MAP) Pulse Ox O2 O2 Flow FiO2 Time Delivery Rate 06/02/18 80 12:25 06/02/18 30 12:15 06/02/18 98.3 22 119/64 97 12:00 (82) 06/01/18 Mechanical 04:00 Ventilator Intake and Output 06/01/18 06/01/18 06/02/18 1515:00 23:00 07:00 IntakeIntake Total 610 ml 100 ml 200 ml OutputOutput Total 900 ml 1300 ml 950 ml BalanceBalance -290 ml -1200 ml -750 ml Exam Constitutional: alert (Following commands, no apparent distress) Head: normocephalic Respiratory: other (Coarse breath sounds bilaterally, no wheezing) Cardiovascular: regular rate and rhythm (S1-S2 heard) Gastrointestinal: soft, non-tender, bowel sounds Extremities: edema Labs Result Diagram: 06/02/18 0736 06/02/18 0736 Results 24hrs Laboratory Tests Test 06/02/18 07:36 White Blood Count 13.4 #H Red Blood Count 2.66 L Hemoglobin 8.5 L Hematocrit 27.8 L Mean Corpuscular Volume 104.5 H Mean Corpuscular Hemoglobin 32.0 Mean Corpuscular Hemoglobin Concent 30.6 L Red Cell Distribution Width 19.3 H Platelet Count 507 H Mean Platelet Volume 9.7 Immature Granulocytes % 1.200 H Neutrophils % 81.8 H Lymphocytes % 7.3 L Monocytes % 7.6 Eosinophils % 1.8 Basophils % 0.3 Nucleated Red Blood Cells % 0.0 Immature Granulocytes # 0.160 H Neutrophils # 10.9 H Lymphocytes # 1.0 Monocytes # 1.0 H Eosinophils # 0.2 Basophils # 0.0 Nucleated Red Blood Cells # 0.0 Sodium Level 133 L Potassium Level 3.8 Chloride Level 100 Carbon Dioxide Level 21 Anion Gap 12 Blood Urea Nitrogen 31 H Creatinine 1.86 H Est Glomerular Filtrat Rate mL/min Glucose Level 101 Calcium Level 9.0 Medications Medications Current Medications IV Flush (NS 10 ml) 10 ml PRN IV ; Start 05/06/18 at 20:30 Ascorbic Acid (Vitamin C) 500 mg DAILY GTB Last administered on 06/02/18 10:11; Admin Dose 500 MG; Start 05/07/18 at 09:00 Albuterol/ Ipratropium (Duoneb) 3 ml Q2H RESP THERAPY PRN HHN SHORTNESS OF BREATH; Start 05/06/18 at 23:30 Zinc Sulfate (Zinc Sulfate) 220 mg DAILY GTB Last administered on 06/02/18 10:11; Admin Dose 220 MG; Start 05/07/18 at 09:00 Ondansetron HCl (Zofran Tab) 4 mg Q6H PRN GTB NAUSEA AND/OR VOMITING Last administered on 05/31/18 16:47; Admin Dose 4 MG; Start 05/07/18 at 00:15 Multivitamins (Multivitamin) 30 ml DAILY GTB Last administered on 06/02/18 10:11; Admin Dose 30 ML; Start 05/07/18 at 09:00 Miscellaneous Information (Pending Santyl Order For Wound Care) This patient goldman. .. PRN PRN XX WOUND CARE; Start 05/09/18 at 17:00 Vancomycin HCl (Vancomycin Oral Syringe) 250 mg Q6 PO Last administered on 06/02/18 12:49; Admin Dose 250 MG; Start 05/12/18 at 00:00 Albuterol (Ventolin Hfa) 4 puff Q6H RESP THERAPY INH Last administered on 06/02/18 14:21; Admin Dose 4 PUFF; Start 05/12/18 at 20:00 Ipratropium [place] (Atrovent Hfa) 4 puff Q6H RESP THERAPY INH Last adminis tered on 06/02/18 14:21; Admin Dose 4 PUFF; Start 05/12/18 at 20:00 Heparin Sodium (Porcine) (Heparin (1000 Units/ml)) 2,800 unit AFTER DIALYSIS CATHETER Last administered on 05/29/18 18:24; Admin Dose 2,800 UNIT; Start 05/16/18 at 16:30 Furosemide (Lasix) 40 mg BID DIURETICS IV Last administered on 06/02/18 05:41; Admin Dose 40 MG; Start 05/19/18 at 09:00 Epoetin Zen-epbx (RETACRIT(esrd)) 20,000 unit Tu@1700 SC Last administered on 05/26/18 17:28; Admin Dose 20,000 UNIT; Start 05/19/18 at 17:00 Spironolactone (Aldactone) 50 mg DAILY GTB Last administered on 06/02/18 10:12; Admin Dose 50 MG; Start 05/21/18 at 09:00 Metolazone (Zaroxolyn) 5 mg DAILY@0600 PO Last administered on 05/28/18 05:48; Admin Dose 5 MG; Start 05/22/18 at 09:00; Status Hold Famotidine (Pepcid) 20 mg DAILY PEG Last administered on 06/02/18 10:11; Admin Dose 20 MG; Start 05/23/18 at 09:00 Morphine Sulfate (morphine) 6 mg Q4H PRN PEG SEVERE PAIN LEVEL 7-10 Last administered on 06/02/18 03:04; Admin Dose 6 MG; Start 05/22/18 at 17:00 Albumin Human 100 ml @ 100 mls/hr DURING DIALYSIS PRN IV hypotension on hd Last administered on 05/29/18 14:49; Admin Dose 100 MLS/HR; Start 05/27/18 at 07:30 Cholestyramine Resin (Questran Light) 4 gm 0600,1200,1800,2300 PO Last administered on 06/02/18 12:49; Admin Dose 4 GM; Start 05/27/18 at 18:00 Lorazepam (Ativan) 0.5 mg Q4H PRN IV ANXIETY; Start 05/30/18 at 12:00 Metronidazole 100 ml @ 100 mls/hr Q8 IVPB Last administered on 06/02/18 15:24; Admin Dose 100 MLS/HR; Start 05/30/18 at 22:00 Acetaminophen (Tylenol Tab) 650 mg Q4H PRN PO MILD PAIN(1-3)OR ELEVATED TEMP; Start 05/31/18 at 13:00 Metoclopramide HCl (Reglan) 5 mg Q6 IV Last administered on 06/02/18at 12:49; Admin Dose 5 MG; Start 05/31/18 at 13:00 Collagenase (Santyl) 1 applic DAILY TOP Last administered on 06/02/18 09:00; Admin Dose 1 APPLIC; Start 06/01/18 at 09:00 Amiodarone HCl (Cordarone) 200 mg BID PO Last administered on 06/02/18at 10:11; Admin Dose 200 MG; Start 06/01/18 at 21:00 Metoprolol Tartrate (Lopressor) 50 mg Q8 GTB Last administered on 06/02/18at 15:25; Admin Dose 50 MG; Start 06/01/18 at 14:30 Evangelista Scanlon DO Jun 02, 2018 15:36
[2018-06-02] MEDS: EPOETIN ALFA-EPBX (ESRD) 10,000 UNIT/ML VIAL SC SCH (17:06)
--- NOTE | 2018-06-02 17:06 | PN ---
DATE: 06/02/2018 SUBJECTIVE: The patient is stable on full vent support. The patient's urinary output has been adequ ate. No other acute events noted. No hemoptysis, hematemesis or hematochezia. OBJECTIVE: VITAL SIGNS: Blood pressure is 119/34, respirations 22, pulse 80, temperature 98.3. HEENT: Head is normocephalic. NECK: Supple. HEART: Regular rate. LUNGS: Show diminished breath sounds at base. ABDOMEN: Soft, nontender to palpation. No rebound or guarding. EXTREMITIES: Negative for clubbing, cyanosis. Positive edema. DERMATOLOGIC: No rashes. MUSCULOSKELETAL: No joint effusion. NEUROLOGIC: No change in exam. LABORATORY DATA: Has been reviewed. Laboratory data from 06/02/2018 was reviewed. ASSESSMENT AND PLAN: 1. Nonoliguric acute kidney injury on top of chronic kidney disease with previous baseline creatinin e around 2 to 2.5 mg/dL. Etiology of acute kidney injury is secondary to acute tubular necrosis. Th e patient has been on intermittent hemodialysis, last dialysis was approximately 5 days ago. Will co ntinue to monitor renal function closely. If remains stable, will discontinue Juan catheter. 2. Volume overload secondary to acute kidney injury, chronic kidney disease, CHF. Continue current diuretic regimen and monitor I's and O's closely. 3. Hypokalemia and hypomagnesemia. Continue to monitor and replete as needed. 4. Hypernatremia. Continue to monitor. Will deescalate free water flushes. 5. Anemia. Continue to monitor hemoglobin and hematocrit levels. Will give Epogen as needed. 6. Mineral bone disorder, monitor calcium and phosphorus levels. 7. Ventilatory dependent respiratory failure. Vent settings and ABG was reviewed. Continue to [facility]. 8. Septic shock. The patient is completing antibiotic course. 9. continue to monitor. 10. Dysphagia. Continue tube feeding. 11. Acute encephalopathy, etiology is toxic metabolic. 12. Lower extremity wounds. Continue wound care. Dictated By: JEANA FINE/TABATHA Conf#: [id number] DID#: [id number] CC: ROLAND GIRON MD;*EndCC*
--- NOTE | 2018-06-02 17:21 | PN ---
Date/Time of Note Date/Time of Note DATE: 06/02/18 TIME: 17:16 Assessment/Plan VTE Prophylaxis Risk score (from Ns)>0 risk: 3 SCD applied (from Ns): Yes Pharmacological prophylaxis: heparin Lines/Catheters IV [facility] Juan Urinary Cath still in place: Yes Reason Cath still needed: urinary retention Assessment/Plan Hospital Course Patient with increased leukocytosis, no fever, continues to have diarrhea. Will check CBC tomorrow., Continue current care. Awaits authorization for [place]. Assessment/Plan -Atrial fibrillation was rapid ventricular response, s/p amiodarone drip. Rate is well controlled on p.o. amiodarone and metoprolol. Dr. Scanlon is following in cardiology consultation. -Septic shock secondary to urinary tract infection, anterior neck soft tissue infection, and C. difficile colitis, resolving. Continue antibiotics per ID. Dr. Black is following in infection disease consultation. -Acute respiratory failure requiring intubation and ventilatory support. Dr. Lambert is following in pulmonology consultation. -S/p tracheostomy on 05/29/18. -Acute kidney injury on chronic kidney disease. Started on HD this admission. Dr. Mckeon is following in nephrology consultation. -Anemia of chronic inflammation, stool for OB is negative, status post blood transfusion. Continue Epogen. -Metabolic acidosis, resolved. -Acute diastolic congestive heart failure. -Paroxysmal atrial fibrillation -COPD -Dysphagia with PEG. -G-tube mild malfunction, changed by GI Dr. Carolina is following in gastroenterology consultation. -Obesity Further recommendations based on clinical course. Plan of care discussed with Dr. Eisenberg. Result Diagram: 06/02/18 0736 06/02/18 0736 Results 24hrs Laboratory Tests Test 06/02/18 07:36 White Blood Count 13.4 #H Red Blood Count 2.66 L Hemoglobin 8.5 L Hematocrit 27.8 L Mean Corpuscular Volume 104.5 H Mean Corpuscular Hemoglobin 32.0 Mean Corpuscular Hemoglobin Concent 30.6 L Red Cell Distribution Width 19.3 H Platelet Count 507 H Mean Platelet Volume 9.7 Immature Granulocytes % 1.200 H Neutrophils % 81.8 H Lymphocytes % 7.3 L Monocytes % 7.6 Eosinophils % 1.8 Basophils % 0.3 Nucleated Red Blood Cells % 0.0 Immature Granulocytes # 0.160 H Neutrophils # 10.9 H Lymphocytes # 1.0 Monocytes # 1.0 H Eosinophils # 0.2 Basophils # 0.0 Nucleated Red Blood Cells # 0.0 Sodium Level 133 L Potassium Level 3.8 Chloride Level 100 Carbon Dioxide Level 21 Anion Gap 12 Blood Urea Nitrogen 31 H Creatinine 1.86 H Est Glomerular Filtrat Rate mL/min Glucose Level 101 Calcium Level 9.0 Exam/Review of Systems Exam Vitals Vital Signs Date Temp Pulse Resp B/P (MAP) Pulse Ox O2 O2 Flow FiO2 Time Delivery Rate 06/02/18 80 22 98 30 17:10 06/02/18 98.7 134/70 15:53 (91) 06/01/18 Mechanical 04:00 Ventilator Intake and Output 06/01/18 06/01/18 06/02/18 1515:00 23:00 07:00 IntakeIntake Total 610 ml 100 ml 200 ml OutputOutput Total 900 ml 1300 ml 950 ml BalanceBalance -290 ml -1200 ml -750 ml Exam Constitutional: awake, alert Respiratory: diminished breath sounds Cardiovascular: regular rate and rhythm Gastrointestinal: soft, tender, other (G-tube) Musculoskeletal: nl extremities to inspection Extremities: normal pulses Results Results 24hrs Laboratory Tests Test 06/02/18 07:36 White Blood Count 13.4 #H Red Blood Count 2.66 L Hemoglobin 8.5 L Hematocrit 27.8 L Mean Corpuscular Volume 104.5 H Mean Corpuscular Hemoglobin 32.0 Mean Corpuscular Hemoglobin Concent 30.6 L Red Cell Distribution Width 19.3 H Platelet Count 507 H Mean Platelet Volume 9.7 Immature Granulocytes % 1.200 H Neutrophils % 81.8 H Lymphocytes % 7.3 L Monocytes % 7.6 Eosinophils % 1.8 Basophils % 0.3 Nucleated Red Blood Cells % 0.0 Immature Granulocytes # 0.160 H Neutrophils # 10.9 H Lymphocytes # 1.0 Monocytes # 1.0 H Eosinophils # 0.2 Basophils # 0.0 Nucleated Red Blood Cells # 0.0 Sodium Level 133 L Potassium Level 3.8 Chloride Level 100 Carbon Dioxide Level 21 Anion Gap 12 Blood Urea Nitrogen 31 H Creatinine 1.86 H Est Glomerular Filtrat Rate mL/min Glucose Level 101 Calcium Level 9.0 Medications Medication Current Medications IV Flush (NS 10 ml) 10 ml PRN IV ; Start 05/06/18 at 20:30 Ascorbic Acid (Vitamin C) 500 mg DAILY GTB Last administered on 06/02/18 10:11; Admin Dose 500 MG; Start 05/07/18 at 09:00 Albuterol/ Ipratropium (Duoneb) 3 ml Q2H RESP THERAPY PRN HHN SHORTNESS OF BREATH; Start 05/06/18 at 23:30 Zinc Sulfate (Zinc Sulfate) 220 mg DAILY GTB Last administered on 06/02/18 10:11; Admin Dose 220 MG; Start 05/07/18 at 09:00 Ondansetron HCl (Zofran Tab) 4 mg Q6H PRN GTB NAUSEA AND/OR VOMITING Last administered on 05/31/18 16:47; Admin Dose 4 MG; Start 05/07/18 at 00:15 Multivitamins (Multivitamin) 30 ml DAILY GTB Last administered on 06/02/18 10:11; Admin Dose 30 ML; Start 05/07/18 at 09:00 Miscellaneous Information (Pending [facility] Order For Wound Care) This patient goldman... PRN PRN XX WOUND CARE; Start 05/09/18 at 17:00 Vancomycin HCl (Vancomycin Oral Syringe) 250 mg Q6 PO Last administered on 06/02/18 17:06; Admin Dose 250 MG; Start 05/12/18 at 00:00 Albuterol (Ventolin Hfa) 4 puff Q6H RESP THERAPY INH Last administered on 06/02/18 14:21; Admin Dose 4 PUFF; Start 05/12/18 at 20:00 Ipratropium [place] (Atrovent Hfa) 4 puff Q6H RESP THERAPY INH Last administered on 06/02/18 14:21; Admin Dose 4 PUFF; Start 05/12/18 at 20:00 Heparin Sodium (Porcine) (Heparin (1000 Units/ml)) 2,800 unit AFTER DIALYSIS CATHETER Last administered on 05/29/18 18:24; Admin Dose 2,800 UNIT; Start 05/16/18 at 16:30 Furosemide (Lasix) 40 mg BID DIURETICS IV Last administered on 06/02/18 17:01; Admin Dose 40 MG; Start 05/19/18 at 09:00 Epoetin Zen-epbx (RETACRIT(esrd)) 20,000 unit Tu@1700 SC Last administered on 06/02/18 17:06; Admin Dose 20,000 UNIT; Start 05/19/18 at 17:00 Spironolactone (Aldactone) 50 mg DAILY GTB Last administered on 06/02/18 10:12; Admin Dose 50 MG; Start 05/21/18 at 09:00 Metolazone (Zaroxolyn) 5 mg DAILY@0600 PO Last administered on 05/28/18 05:48; Admin Dose 5 MG; Start 05/22/18 at 09:00; Status Hold Famotidine (Pepcid) 20 mg DAILY PEG Last administered on 06/02/18 10:11; Admin Dose 20 MG; Start 05/23/18 at 09:00 Morphine Sulfate (morphine) 6 mg Q4H PRN PEG SEVERE PAIN LEVEL 7-10 Last administered on 06/02/18 03:04; Admin Dose 6 MG; Start 05/22/18 at 17:00 Albumin Human 100 ml @ 100 mls/hr DURING DIALYSIS PRN IV hypotension on hd Last administered on 05/29/18 14:49; Admin Dose 100 MLS/HR; Start 05/27/18 at 07:30 Cholestyramine Resin (Questran Light) 4 gm 0600,1200,1800,2300 PO Last administered on 06/02/18 17:04; Admin Dose 4 GM; Start 05/27/18 at 18:00 Lorazepam (Ativan) 0.5 mg Q4H PRN IV ANXIETY; Start 05/30/18 at 12:00 Metronidazole 100 ml @ 100 mls/hr Q8 IVPB Last administered on 06/02/18 15:24; Admin Dose 100 MLS/HR; Start 05/30/18 at 22:00 Acetaminophen (Tylenol Tab) 650 mg Q4H PRN PO MILD PAIN(1-3)OR ELEVATED TEMP; Start 05/31/18 at 13:00 Metoclopramide HCl (Reglan) 5 mg Q6 IV Last administered on 06/02/18 17:03; Admin Dose 5 MG; Start 05/31/18 at 13:00 Collagenase (Santyl) 1 applic DAILY TOP Last administered on 06/02/18 09:00; Admin Dose 1 APPLIC; Start 06/01/18 at 09:00 Amiodarone HCl (Cordarone) 200 mg BID PO Last administered on 06/02/18at 10:11; Admin Dose 200 MG; Start 06/01/18 at 21:00 Metoprolol Tartrate (Lopressor) 50 mg Q8 GTB Last administered on 06/02/18at 15:25; Admin Dose 50 MG; Start 06/01/18 at 14:30 GRISELDA DENNIS Jun 02, 2018 17:21
[2018-06-03] VITALS (20 sets, daily range): BP systolic 110–160; BP diastolic 65–89; PULSE 66–90; RESP 18–28; Ht 167.6 cm; Wt 89.7 kg
[2018-06-03] MEDS: ALBUTEROL HFA 8 GM INHALER INH SCH ×4 (01:02→19:22)
[2018-06-03] MEDS: IPRATROPIUM (HFA) 12.9 GM INHALER INH SCH ×4 (01:02→19:22)
[2018-06-03] MEDS: METOPROLOL 50 MG TAB GTB SCH ×3 (05:39→23:14)
[2018-06-03] MEDS: CHOLESTYRAMINE (LIGHT) 4 GM PACKET PO SCH ×3 (05:39→17:31)
[2018-06-03] MEDS: metroNIDAZOLE 500 MG/NS (PMX) 100 ML IVPB SCH ×3 (05:39→22:10)
[2018-06-03] MEDS: METOCLOPRAMIDE 10 MG INJ IV SCH ×4 (05:39→23:14)
[2018-06-03] MEDS: FUROSEMIDE 40 MG INJ IV SCH ×2 (05:39→17:31)
[2018-06-03] MEDS: VANCOMYCIN HCL 250 MG/5ML POSYG PO SCH ×4 (05:49→23:14)
[2018-06-03] MEDS ORDERED: ALTEPLASE (CATHFLO) 2 MG INJ CATHETER ONE ×3 (08:30)
[2018-06-03] MEDS ORDERED: MAGNESIUM SULFATE 2 GM/50 ML 50 ML IVPB ONE (09:30)
[2018-06-03] MEDS: AMIODARONE 200 MG TAB PO SCH ×2 (09:36→22:11)
[2018-06-03] MEDS: FAMOTIDINE 20 MG TAB PEG SCH (09:36)
[2018-06-03] MEDS: MULTIVITAMINS 30 ML CUP GTB SCH (09:36)
[2018-06-03] MEDS: ASCORBIC ACID 500 MG TAB GTB SCH (09:36)
[2018-06-03] MEDS: ZINC SULFATE 220 MG CAP GTB SCH (09:36)
[2018-06-03] MEDS: SPIRONOLACTONE 25 MG TAB GTB SCH (09:37)
[2018-06-03] MEDS: COLLAGENASE 5 GM (UD JAR) TOP SCH (09:37)
[2018-06-03] MEDS: BALSAM PERU/CASTOR OIL 60 GM TUBE TOP SCH ×2 (09:38→22:11)
--- NOTE | 2018-06-03 09:41 | CONS ---
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 colonization of the airway by pseudomonas and ESBL+klebsiella - h/o possible, recurrent HCAP due to pseudomonas and ESBL+klebsiella - h/o recurrent HCAP due to MRSA and Enterobacter (culture of tracheal aspirate on 07/16/2017 that was collected at [facility]) . Pt took vancomycin and ceftazidime - h/o decannulation prior to admission - h/o tracheostomy on 06/11/2017 - h/o SIRS from UGIB in 2018 - h/o thoracentesis on 07/18/2017, transudative (protein <2, LDH 279) - h/o bleeding from the trach site in 2018 - h/o septic shock due to pneumonia, ARDS, bacteremia, fungemia in 2018 - h/o ARDS in 2018 - h/o smoking - COPD - h/o ILD per medical record - h/o PAF, improved # GI - C diff colitis, diagnosed on 05/11/2018 - h/o intermittent diarrhea, Pt had multiple negative C. diff tests at [facility] at [facility] in the past; none was positive until 05/11/2018 - dysphagia - h/o PEG placement 06/13/2018 - protein calorie malnutrition - h/o coffee ground emesis/UGIB on 12/23/2017 due to deep ulceration of distal esophagus and gastritis on EGD 12/26/2017. No e/o H. pylori - h/o possible appendicitis on CT on 11/22/2017, Pt took ertapenem (11/24/2017- 12/01/2017) - h/o extensive adhesions lower abdominal and pelvis between small bowel to each other and to colon and to abdominal wall, anterior pelvic wall chronic abscess secondary to probably an old perforated diverticulitis, torsion of small bowel around these dense adhesion causing multiple obstructive points - h/o laparoscopic exploration and extensive lysis of adhesions and drainage of anterior pelvic wall abscess 09/16/2017. Cultures were negative, no e/o malignancy. Pt took pip/tazo (09/16/2017-09/26/2017) - h/o EGD and exchange of PEG on 09/01/2017 - h/o partial obstruction mid jejunum in L anterior central pelvis with suggestion of a 3 cm soft tissue mass on CT 08/28/2017 - h/o internal stomal deep ulcer behind the internal bumper, gastritis and esophagitis, Rodriguez's cannot be ruled out, per EGD with biopsy 07/23/2017 - h/o GIB s/p flex sig showed polyp; stool OB negative on 06/29/17 - h/o stool OB positive status - h/o SBO and ileus due to pain meds - h/o mildly elevated CEA # renal/ - anasarca - started on HD on 05/15/2018, via Juan in R groin - recurrent NATHAN on CKD - 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 Her strain of CRE was sensitive to colistin, Avycaz, and Vabomere but resistant to Zerbaxa (reported on 05/19/2018) - Hyponatremia - Hyperkalemia, now hypokalemia - Metabolic acidosis - adrenal insufficiency - h/o vaginal bleed in 2018 - h/o colonization of urinary tract by ESBL+klebsiella, VRE - h/o recurrent, symptomatic UTI due to carbapenem-resistant kleb (MDR strain) per urine culture 10/04/17, 10/09/17, 10/21/2017, P took colistin (10/09/2017- 10/15/2017), fosfomycin for carbapenemase-producing klebsiella and VRE on 10/25/2017 and 10/28/2017 - h/o funguria - h/o urinary retention # fungemia, bacteremia 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 improved. Probable manifestation of endocarditis. Pt declined MRI on 08/06/2017 - h/o infection of R toes due to pseudomonas. coagulase negative Staph likely a colonizer - h/o intertrigo of the groin, resolved with nystatin powder - h/o scabies, locally crusted lesion over L scapula, s/p permethrin cream and pGT ivermectin on 08/11/2017, 08/12/2017, 08/19/2017. Repeat skin scraping on 08/21/2017 was negative for scabies # psych, neuro - acute toxic metabolic encephalopathy - improving - decreased hearing b/l - h/o critical illness polyneuropathy - anxiety/depression, bipolar d/o, seen by Psychiatry in the past - chronic pain syndrome - h/o medical non-compliance: she would refuse her medications, treatment and straight catheterization in 2018 # hematological, vascular - chronic anemia requiring blood transfusion intermittently - Macrocytic anemia - 3.1 cm AAA on imaging - PVD Recommendations: - monitor wbc curve closely; avoid additional abx at this time - monitor/trend fever curve closely - continue pGT vancomycin (05/11/2018-) for C. diff colitis - continue IV metronidazole (05/11/2018-05/29/2018; restart 05/30/2018-) for now; can likely DC soon as diarrhea is improving. Pt completed meropenem for HCAP (05/13/2018-05/19/2018). - order in place to send linn cultures if temp >100.3 F - consider removing R groin HD catheter if feasible Plan was d/w nsg and with Dr. Doyle. Thank you Consultation Date/Type/Reason Admit Date/Time May 06, 2018 at 17:38 Initial Consult Date 05/07/18 Type of Consult ID Requesting Provider: ROLAND GIRON MD Date/Time of Note DATE: 06/03/18 TIME: 09:40 24 HR Interval Summary Free Text/Dictation ROS limited d/t patient did not attempt to answer questions, she just stared at me. No acute issues were reported by nursing. Afebrile. Noted WBC uptick 14.3. Still with diarrhea. Exam/Review of Systems Exam Vitals Vital Signs Date Temp Pulse Resp B/P (MAP) Pulse Ox O2 O2 Flow FiO2 Time Delivery Rate 06/03/18 80 08:20 06/03/18 98.8 19 130/74 96 08:11 (92) 06/03/18 30 08:03 06/01/18 Mechanical 04:00 Ventilator Intake and Output 06/02/18 06/02/18 06/03/18 1515:00 23:00 07:00 IntakeIntake Total 100 ml 200 ml OutputOutput Total 900 ml BalanceBalance 100 ml -700 ml Allergies Coded Allergies shellfish derived (Unverified Allergy, Unknown, 05/06/18) Constitutional: alert, well developed, non-verbal, frail, obese, other (chronically debilitated) Psych: other (BRITTANY) Head: normocephalic, atraumatic Eyes: nl conjunctiva, nl lids, nl sclera ENMT: nl external ears & nose, nl nasal mucosa & septum Neck: supple, non-tender, other (on vent via trach, trach midline, site with small amt of yellow secretion noted on dressing. ) Respiratory: normal air movement, diminished breath sounds (bilaterally, anteriorly), respirations (tachypneic 28); No wheezing Cardiovascular: regular rate and rhythm, nl pulses Gastrointestinal: soft, non-tender, bowel sounds (normoactive ), other (PEG site is c/d/i; Flexiseal draining brown liquid stool. ); No distended, No firm Genitourinary - Female: other (F/c draining yellow urine with small amt of white seds noted. HD catheter R groin, site is c/d/i; +Intertrigo of groin. ) Musculoskeletal: muscle weakness, other (julia foot drop) Extremities: normal pulses, edema (BUE, BLE); No tenderness Neurological: other (Eye tracks me, did not attempt to answer any questions.) Skin: nl turgor, other (Reviewed nsg notes/photos. LLE dressing c/d/i. ) Results Result Diagram: 06/03/18 0618 06/03/18 0618 Results 24hrs Laboratory Tests Test 06/03/18 06:18 White Blood Count 14.5 H Red Blood Count 3.00 L Hemoglobin 9.4 L Hematocrit 31.0 L Mean Corpuscular Volume 103.3 H Mean Corpuscular Hemoglobin 31.3 Mean Corpuscular Hemoglobin Concent 30.3 L Red Cell Distribution Width 19.1 H Platelet Count 562 H Mean Platelet Volume 9.2 Immature Granulocytes % 2.700 H Neutrophils % 79.6 H Lymphocytes % 6.8 L Monocytes % 8.6 Eosinophils % 2.1 Basophils % 0.2 Nucleated Red Blood Cells % 0.0 Immature Granulocytes # 0.390 H Neutrophils # 11.6 H Lymphocytes # 1.0 Monocytes # 1.3 H Eosinophils # 0.3 Basophils # 0.0 Nucleated Red Blood Cells # 0.0 Sodium Level 132 L Potassium Level 4.3 Chloride Level 100 Carbon Dioxide Level 18 L Anion Gap 14 H Blood Urea Nitrogen 36 H Creatinine 1.82 H Est Glomerular Filtrat Rate mL/min Glucose Level 107 Calcium Level 9.1 Phosphorus Level 4.7 Magnesium Level 1.4 L Medications Medication Current Medications IV Flush (NS 10 ml) 10 ml PRN IV ; Start 05/06/18 at 20:30 Ascorbic Acid (Vitamin C) 500 mg DAILY GTB Last administered on 06/02/18at 10:11; Admin Dose 500 MG; Start 05/07/18 at 09:00 Albuterol/ Ipratropium (Duoneb) 3 ml Q2H RESP THERAPY PRN HHN SHORTNESS OF BREATH; Start 05/06/18 at 23:30 Zinc Sulfate (Zinc Sulfate) 220 mg DAILY GTB Last administered on 06/02/18at 10:11; Admin Dose 220 MG; Start 05/07/18 at 09:00 Ondansetron HCl (Zofran Tab) 4 mg Q6H PRN GTB NAUSEA AND/OR VOMITING Last administered on 05/31/18at 16:47; Admin Dose 4 MG; Start 05/07/18 at 00:15 Multivitamins (Multivitamin) 30 ml DAILY GTB Last administered on 06/02/18 10:11; Admin Dose 30 ML; Start 05/07/18 at 09:00 Miscellaneous Information (Pending [facility] Order For Wound Care) This patient goldman... PRN PRN XX WOUND CARE; Start 05/09/18 at 17:00 Vancomycin HCl (Vancomycin Oral Syringe) 250 mg Q6 PO Last administered on 06/03/18 05:49; Admin Dose 250 MG; Start 05/12/18 at 00:00 Albuterol (Ventolin Hfa) 4 puff Q6H RESP THERAPY INH Last administered on 06/03/18 08:05; Admin Dose 4 PUFF; Start 05/12/18 at 20:00 Ipratropium [place] (Atrovent Hfa) 4 puff Q6H RESP THERAPY INH Last administered on 06/03/18 08:05; Admin Dose 4 PUFF; Start 05/12/18 at 20:00 Heparin Sodium (Porcine) (Heparin (1000 Units/ml)) 2,800 unit AFTER DIALYSIS CATHETER Last administered on 05/29/18 18:24; Admin Dose 2,800 UNIT; Start 05/16/18 at 16:30 Furosemide (Lasix) 40 mg BID DIURETICS IV Last administered on 06/03/18 05:39; Admin Dose 40 MG; Start 05/19/18 at 09:00 Epoetin Zen-epbx (RETACRIT(esrd)) 20,000 unit Tu@1700 SC Last administered on 06/02/18 17:06; Admin Dose 20,000 UNIT; Start 05/19/18 at 17:00 Spironolactone (Aldactone) 50 mg DAILY GTB Last administered on 06/02/18 10:12; Admin Dose 50 MG; Start 05/21/18 at 09:00 Metolazone (Zaroxolyn) 5 mg DAILY@0600 PO Last administered on 05/28/18 05:48; Admin Dose 5 MG; Start 05/22/18 at 09:00; Status Hold Famotidine (Pepcid) 20 mg DAILY PEG Last administered on 06/02/18 10:11; Admin Dose 20 MG; Start 05/23/18 at 09:00 Morphine Sulfate (morphine) 6 mg Q4H PRN PEG SEVERE PAIN LEVEL 7-10 Last administered on 06/02/18 20:32; Admin Dose 6 MG; Start 05/22/18 at 17:00 Albumin Human 100 ml @ 100 mls/hr DURING DIALYSIS PRN IV hypotension on hd Last administered on 05/29/18 14:49; Admin Dose 100 MLS/HR; Start 05/27/18 at 07:30 Cholestyramine Resin (Questran Light) 4 gm 0600,1200,1800,2300 PO Last administered on 06/03/18 05:39; Admin Dose 4 GM; Start 05/27/18 at 18:00 Lorazepam (Ativan) 0.5 mg Q4H PRN IV ANXIETY; Start 05/30/18 at 12:00 Metronidazole 100 ml @ 100 mls/hr Q8 IVPB Last administered on 06/03/18 05:39; Admin Dose 100 MLS/HR; Start 05/30/18 at 22:00 Acetaminophen (Tylenol Tab) 650 mg Q4H PRN PO MILD PAIN(1-3)OR ELEVATED TEMP; Start 05/31/18 at 13:00 Metoclopramide HCl (Reglan) 5 mg Q6 IV Last administered on 06/03/18 05:39; Admin Dose 5 MG; Start 05/31/18 at 13:00 Collagenase (Santyl) 1 applic DAILY TOP Last administered on 06/02/18 09:00; Admin Dose 1 APPLIC; Start 06/01/18 at 09:00 Amiodarone HCl (Cordarone) 200 mg BID PO Last administered on 06/02/18 20:32; Admin Dose 200 MG; Start 06/01/18 at 21:00 Metoprolol Tartrate (Lopressor) 50 mg Q8 GTB Last administered on 06/03/18 05:39; Admin Dose 50 MG; Start 06/01/18 at 14:30 Clonidine (Catapres) 0.1 mg Q6H PRN PO ELEVATED BLOOD PRESSURE; Start 06/03/18 at 03:30 Magnesium Sulfate 50 ml @ 25 mls/hr ONCE ONCE IVPB ; Start 06/03/18 at 09:30; Stop 06/03/18 at 11:29 KENA MÉNDEZ NP Jun 03, 2018 09:41
[2018-06-03] MEDS: morphine LIQ (10 MG/5 ML) CUP PEG PRN (09:59)
--- NOTE | 2018-06-03 10:07 | PN ---
DATE: 06/03/2018 SUBJECTIVE: The patient remained stable. No fevers overnight. No hemoptysis, hematemesis or hemato chezia. OBJECTIVE: VITAL SIGNS: Blood pressure is 130/70, respirations 19, pulse 83, temperature 98.8. HEENT: Head is normocephalic. NECK: Supple. HEART: Regular rate. LUNGS: Show diminished breath sounds at the base. ABDOMEN: Soft, nontender to palpation without rebound or guarding. EXTREMITIES: Negative for clubbing, cyanosis. Positive edema. DERMATOLOGIC: No rashes. MUSCULOSKELETAL: No joint effusion. NEUROLOGIC: No change in exam. MEDICATIONS: Reviewed. LABORATORY DATA: From 06/03/2018 was reviewed. ASSESSMENT AND PLAN: 1. Nonoliguric acute kidney injury on top of chronic kidney disease with previous baseline creatinin e of 2 to 2.5 mg/dL. Etiology of acute kidney injury is secondary to acute tubular necrosis. The pa tient was initiated on hemodialysis for solute clearance and volume removal. The patient's dialysis has been held, as renal function has been stable. We will continue to monitor closely. If renal fun ction remains stable, we will discontinue Juan catheter. 2. Volume overload secondary to acute kidney injury, congestive heart failure. The patient remains volume overloaded. Continue diuretic regimen. 3. Hypernatremia. We will discontinue the patient's free water flushes, monitor sodium levels close ly. 4. Hypokalemia and hypomagnesemia. Continue to monitor and replete as needed. 5. Anemia. Continue to monitor hemoglobin and hematocrit levels. We will give Epogen as needed. 6. Mineral bone disorder, monitor calcium and phosphorus levels. 7. Ventilator-dependent respiratory failure. Vent settings and ABG was reviewed. Continue to monit or. 8. Sepsis, status post shock. The patient is completing antibiotic course. 9. Dysphagia. Continue tube feeding. 10. Acute encephalopathy, etiology is toxic metabolic. 11. Lower extremity wounds. Continue wound care. Dictated By: JEANA BANSAL DO NR/NTS Conf#: [id number] DID#: [id number] CC: QUINTEN UMAÑA MD; ROLAND GIRON MD;*EndCC*
--- NOTE | 2018-06-03 12:34 | CONS ---
Assessment/Plan Assessment/Plan Hospital Course (Demo Recall) Septic as well as hemorrhagic shock-improving Acute respiratory failure status post intubation Acute blood loss anemia Septic shock and hemorrhagic shock History of respiratory failure status post decannulation Preserved ejection fraction echocardiogram 05/10/2018 Paroxysmal atrial fibrillation, currently sinus rhythm Acute kidney injury -Patient status post tracheostomy -Blood pressure trend overall improved, continue beta-tin as tolerated -Remains in sinus rhythm, continue amiodarone and will titrate as needed -Vent management as per pulmonary -Fluid management and electrolytes as per renal -Antibiotics as per infectious disease -No anticoagulation given recurrent anemia requiring blood transfusions Consultation Date/Type/Reason Admit Date/Time May 06, 2018 at 17:38 Initial Consult Date 05/10/18 Type of Consult Cardiology Requesting Provider: ROLAND GIRON MD Date/Time of Note DATE: 06/03/18 TIME: 12:33 24 HR Interval Summary Free Text/Dictation Patient seen and examined, sleeping Exam/Review of Systems Vital Signs Vitals Vital Signs Date Temp Pulse Resp B/P (MAP) Pulse Ox O2 O2 Flow FiO2 Time Delivery Rate 06/03/18 96 23 85 30 11:43 06/03/18 97.8 126/77 Mechanical 11:40 (93) Ventilator Intake and Output 06/02/18 06/02/18 06/03/18 1515:00 23:00 07:00 IntakeIntake Total 100 ml 200 ml OutputOutput Total 900 ml BalanceBalance 100 ml -700 ml Exam Exam Sleeping, no apparent distress Head: normocephalic Neck: other (Tracheostomy) Respiratory: other (Coarse breath sounds bilaterally, no wheezing) Cardiovascular: regular rate and rhythm (S1-S2 heard) Gastrointestinal: soft, non-tender, bowel sounds Extremities: edema Labs Result Diagram: 06/03/1818 06/03/1818 Results 24hrs Laboratory Tests Test 06/03/18 06:18 White Blood Count 14.5 H Red Blood Count 3.00 L Hemoglobin 9.4 L Hematocrit 31.0 L Mean Corpuscular Volume 103.3 H Mean Corpuscular Hemoglobin 31.3 Mean Corpuscular Hemoglobin Concent 30.3 L Red Cell Distribution Width 19.1 H Platelet Count 562 H Mean Platelet Volume 9.2 Immature Granulocytes % 2.700 H Neutrophils % 79.6 H Lymphocytes % 6.8 L Monocytes % 8.6 Eosinophils % 2.1 Basophils % 0.2 Nucleated Red Blood Cells % 0.0 Immature Granulocytes # 0.390 H Neutrophils # 11.6 H Lymphocytes # 1.0 Monocytes # 1.3 H Eosinophils # 0.3 Basophils # 0.0 Nucleated Red Blood Cells # 0.0 Sodium Level 132 L Potassium Level 4.3 Chloride Level 100 Carbon Dioxide Level 18 L Anion Gap 14 H Blood Urea Nitrogen 36 H Creatinine 1.82 H Est Glomerular Filtrat Rate mL/min Glucose Level 107 Calcium Level 9.1 Phosphorus Level 4.7 Magnesium Level 1.4 L Medications Medications Current Medications IV Flush (NS 10 ml) 10 ml PRN IV ; Start 05/06/18 at 20:30 Ascorbic Acid (Vitamin C) 500 mg DAILY GTB Last administered on 06/03/18 09:36; Admin Dose 500 MG; Start 05/07/18 at 09:00 Albuterol/ Ipratropium (Duoneb) 3 ml Q2H RESP THERAPY PRN HHN SHORTNESS OF BREATH; Start 05/06/18 at 23:30 Zinc Sulfate (Zinc Sulfate) 220 mg DAILY GTB Last administered on 06/03/18 09:36; Admin Dose 220 MG; Start 05/07/18 at 09:00 Ondansetron HCl (Zofran Tab) 4 mg Q6H PRN GTB NAUSEA AND/OR VOMITING Last administered on 05/31/18 16:47; Admin Dose 4 MG; Start 05/07/18 at 00:15 Multivitamins (Multivitamin) 30 ml DAILY GTB Last administered on 06/03/18 09:36; Admin Dose 30 ML; Start 05/07/18 at 09:00 Miscellaneous Information (Pending Santyl Order For Wound Care) This patient goldman... PRN PRN XX WOUND CARE; Start 05/09/18 at 17:00 Vancomycin HCl (Vancomycin Oral Syringe) 250 mg Q6 PO Last administered on 06/03/18 05:49; Admin Dose 250 MG; Start 05/12/18 at 00:00 Albuterol (Ventolin Hfa) 4 puff Q6H RESP THERAPY INH Last administered on 06/03/18 08:05; Admin Dose 4 PUFF; Start 05/12/18 at 20:00 Ipratropium [place] (Atrovent Hfa) 4 puff Q6H RESP THERAPY INH Last administered on 06/03/18 08:05; Admin Dose 4 PUFF; Start 05/12/18 at 20:00 Heparin Sodium (Porcine) (Heparin (1000 Units/ml)) 2,800 unit AFTER DIALYSIS CATHETER Last administered on 05/29/18 18:24; Admin Dose 2,800 UNIT; Start 05/16/18 at 16:30 Furosemide (Lasix) 40 mg BID DIURETICS IV Last administered on 06/03/18 05:39; Admin Dose 40 MG; Start 05/19/18 at 09:00 Epoetin Zen-epbx (RETACRIT(esrd)) 20,000 unit Tu@1700 SC Last administered on 06/02/18 17:06; Admin Dose 20,000 UNIT; Start 05/19/18 at 17:00 Spironolactone (Aldactone) 50 mg DAILY GTB Last administered on 06/03/18 09:37; Admin Dose 50 MG; Start 05/21/18 at 09:00 Metolazone (Zaroxolyn) 5 mg DAILY@0600 PO Last administered on 05/28/18 05:48; Admin Dose 5 MG; Start 05/22/18 at 09:00; Status Hold Famotidine (Pepcid) 20 mg DAILY PEG Last administered on 06/03/18 09:36; Admin Dose 20 MG; Start 05/23/18 at 09:00 Morphine Sulfate (morphine) 6 mg Q4H PRN PEG SEVERE PAIN LEVEL 7-10 Last administered on 06/03/18 09:59; Admin Dose 6 MG; Start 05/22/18 at 17:00 Albumin Human 100 ml @ 100 mls/hr DURING DIALYSIS PRN IV hypotension on hd Last administered on 05/29/18 14:49; Admin Dose 100 MLS/HR; Start 05/27/18 at 07:30 Cholestyramine Resin (Questran Light) 4 gm 0600,1200,1800,2300 PO Last administered on 06/03/18 05:39; Admin Dose 4 GM; Start 05/27/18 at 18:00 Lorazepam (Ativan) 0.5 mg Q4H PRN IV ANXIETY; Start 05/30/18 at 12:00 Metronidazole 100 ml @ 100 mls/hr Q8 IVPB Last administered on 4/17/19at 05:39; Admin Dose 100 MLS/HR; Start 05/30/18 at 22:00 Acetaminophen (Tylenol Tab) 650 mg Q4H PRN PO MILD PAIN(1-3)OR ELEVATED TEMP; Start 05/31/18 at 13:00 Metoclopramide HCl (Reglan) 5 mg Q6 IV Last administered on 06/03/18at 05:39; Admin Dose 5 MG; Start 05/31/18 at 13:00 Collagenase (Santyl) 1 applic DAILY TOP Last administered on 06/03/18at 09:37; Admin Dose 1 APPLIC; Start 06/01/18 at 09:00 Amiodarone HCl (Cordarone) 200 mg BID PO Last administered on 06/03/18at 09:36; Admin Dose 200 MG; Start 06/01/18 at 21:00 Metoprolol Tartrate (Lopressor) 50 mg Q8 GTB Last administered on 06/03/18at 05:39; Admin Dose 50 MG; Start 06/01/18 at 14:30 Clonidine (Catapres) 0.1 mg Q6H PRN PO ELEVATED BLOOD PRESSURE; Start 06/03/18 at 03:30 Evangelista Scanlon DO Jun 03, 2018 12:34
--- NOTE | 2018-06-03 13:23 | PN ---
Date/Time of Note Date/Time of Note DATE: 06/03/18 TIME: 13:16 Assessment/Plan VTE Prophylaxis Risk score (from Ns)>0 risk: 12 SCD applied (from Ns): Yes Pharmacological prophylaxis: heparin Lines/Catheters IV [facility]ter Type (from [facility]): ovidio Urinary Cath still in place: Yes Reason Cath still needed: urinary retention Assessment/Plan Hospital Course Patient with increased leukocytosis, no fever, continues to liquid stools. Magnesium replaced. Assessment/Plan -Atrial fibrillation was rapid ventricular response, s/p amiodarone drip. Rate is well controlled on p.o. amiodarone and metoprolol. Dr. Scanlon is following in cardiology consultation. -Septic shock secondary to urinary tract infection, anterior neck soft tissue infection, and C. difficile colitis, resolving. Continue antibiotics per ID. Dr. Doyle is following in infection disease consultation. -Acute respiratory failure requiring intubation and ventilatory support. Dr. Lambert is following in pulmonology consultation. -S/p tracheostomy on 05/29/18. -Acute kidney injury on chronic kidney disease. Started on HD this admission. Dr. Mckeon is following in nephrology consultation. -Anemia of chronic inflammation, stool for OB is negative, status post blood transfusion. Continue Epogen. -Metabolic acidosis, resolved. -Acute diastolic congestive heart failure. -Paroxysmal atrial fibrillation -COPD -Dysphagia with PEG. -G-tube mild malfunction, changed by GI Dr. Carolina is following in gastroenterology consultation. -Obesity Disposition: Subacute facility Further recommendations based on clinical course. Plan of care discussed with Dr. Eisenberg. Result Diagram: 06/03/18 0618 06/03/18 0618 Results 24hrs Laboratory Tests Test 06/03/18 06:18 White Blood Count 14.5 H Red Blood Count 3.00 L Hemoglobin 9.4 L Hematocrit 31.0 L Mean Corpuscular Volume 103.3 H Mean Corpuscular Hemoglobin 31.3 Mean Corpuscular Hemoglobin Concent 30.3 L Red Cell Distribution Width 19.1 H Platelet Count 562 H Mean Platelet Volume 9.2 Immature Granulocytes % 2.700 H Neutrophils % 79.6 H Lymphocytes % 6.8 L Monocytes % 8.6 Eosinophils % 2.1 Basophils % 0.2 Nucleated Red Blood Cells % 0.0 Immature Granulocytes # 0.390 H Neutrophils # 11.6 H Lymphocytes # 1.0 Monocytes # 1.3 H Eosinophils # 0.3 Basophils # 0.0 Nucleated Red Blood Cells # 0.0 Sodium Level 132 L Potassium Level 4.3 Chloride Level 100 Carbon Dioxide Level 18 L Anion Gap 14 H Blood Urea Nitrogen 36 H Creatinine 1.82 H Est Glomerular Filtrat Rate mL/min Glucose Level 107 Calcium Level 9.1 Phosphorus Level 4.7 Magnesium Level 1.4 L Exam/Review of Systems Exam Vitals Vital Signs Date Temp Pulse Resp B/P (MAP) Pulse Ox O2 O2 Flow FiO2 Time Delivery Rate 06/03/18 96 23 85 30 11:43 06/03/18 97.8 126/77 Mechanical 11:40 (93) Ventilator Intake and Output 06/02/18 06/02/18 06/03/18 1515:00 23:00 07:00 IntakeIntake Total 100 ml 200 ml OutputOutput Total 900 ml BalanceBalance 100 ml -700 ml Exam Constitutional: awake, alert Respiratory: diminished breath sounds Cardiovascular: regular rate and rhythm Gastrointestinal: soft, tender, other (G-tube) Musculoskeletal: nl extremities to inspection Extremities: normal pulses Results Results 24hrs Laboratory Tests Test 06/03/18 06:18 White Blood Count 14.5 H Red Blood Count 3.00 L Hemoglobin 9.4 L Hematocrit 31.0 L Mean Corpuscular Volume 103.3 H Mean Corpuscular Hemoglobin 31.3 Mean Corpuscular Hemoglobin Concent 30.3 L Red Cell Distribution Width 19.1 H Platelet Count 562 H Mean Platelet Volume 9.2 Immature Granulocytes % 2.700 H Neutrophils % 79.6 H Lymphocytes % 6.8 L Monocytes % 8.6 Eosinophils % 2.1 Basophils % 0.2 Nucleated Red Blood Cells % 0.0 Immature Granulocytes # 0.390 H Neutrophils # 11.6 H Lymphocytes # 1.0 Monocytes # 1.3 H Eosinophils # 0.3 Basophils # 0.0 Nucleated Red Blood Cells # 0.0 Sodium Level 132 L Potassium Level 4.3 Chloride Level 100 Carbon Dioxide Level 18 L Anion Gap 14 H Blood Urea Nitrogen 36 H Creatinine 1.82 H Est Glomerular Filtrat Rate mL/min Glucose Level 107 Calcium Level 9.1 Phosphorus Level 4.7 Magnesium Level 1.4 L Medications Medication Current Medications IV Flush (NS 10 ml) 10 ml PRN IV ; Start 05/06/18 at 20:30 Ascorbic Acid (Vitamin C) 500 mg DAILY GTB Last administered on 06/03/18 09:36; Admin Dose 500 MG; Start 05/07/18 at 09:00 Albuterol/ Ipratropium (Duoneb) 3 ml Q2H RESP THERAPY PRN HHN SHORTNESS OF RADHA ATH; Start 05/06/18 at 23:30 Zinc Sulfate (Zinc Sulfate) 220 mg DAILY GTB Last administered on 06/03/18 09:36; Admin Dose 220 MG; Start 05/07/18 at 09:00 Ondansetron HCl (Zofran Tab) 4 mg Q6H PRN GTB NAUSEA AND/OR VOMITING Last administered on 05/31/18 16:47; Admin Dose 4 MG; Start 05/07/18 at 00:15 Multivitamins (Multivitamin) 30 ml DAILY GTB Last administered on 06/03/18 09:36; Admin Dose 30 ML; Start 05/07/18 at 09:00 Miscellaneous Information (Pending [facility] Order For Wound Care) This patient goldman... PRN PRN XX WOUND CARE; Start 05/09/18 at 17:00 Vancomycin HCl (Vancomycin Oral Syringe) 250 mg Q6 PO Last administered on 06/03/18 05:49; Admin Dose 250 MG; Start 05/12/18 at 00:00 Albuterol (Ventolin Hfa) 4 puff Q6H RESP THERAPY INH Last administered on 06/03/18 08:05; Admin Dose 4 PUFF; Start 05/12/18 at 20:00 Ipratropium [place] (Atrovent Hfa) 4 puff Q6H RESP THERAPY INH Last administered on 06/03/18 08:05; Admin Dose 4 PUFF; Start 05/12/18 at 20:00 Heparin Sodium (Porcine) (Heparin (1000 Units/ml)) 2,800 unit AFTER DIALYSIS CATHETER Last administered on 05/29/18 18:24; Admin Dose 2,800 UNIT; Start 05/16/18 at 16:30 Furosemide (Lasix) 40 mg BID DIURETICS IV Last administered on 06/03/18 05:39; Admin Dose 40 MG; Start 05/19/18 at 09:00 Epoetin Zen-epbx (RETACRIT(esrd)) 20,000 unit Tu@1700 SC Last administered on 06/02/18 17:06; Admin Dose 20,000 UNIT; Start 05/19/18 at 17:00 Spironolactone (Aldactone) 50 mg DAILY GTB Last administered on 06/03/18 09:37 ; Admin Dose 50 MG; Start 05/21/18 at 09:00 Metolazone (Zaroxolyn) 5 mg DAILY@0600 PO Last administered on 05/28/18 05:48; Admin Dose 5 MG; Start 05/22/18 at 09:00; Status Hold Famotidine (Pepcid) 20 mg DAILY PEG Last administered on 06/03/18 09:36; Admin Dose 20 MG; Start 05/23/18 at 09:00 Morphine Sulfate (morphine) 6 mg Q4H PRN PEG SEVERE PAIN LEVEL 7-10 Last administered on 06/03/18 09:59; Admin Dose 6 MG; Start 05/22/18 at 17:00 Albumin Human 100 ml @ 100 mls/hr DURING DIALYSIS PRN IV hypotension on hd Last administered on 05/29/18 14:49; Admin Dose 100 MLS/HR; Start 05/27/18 at 07:30 Cholestyramine Resin (Questran Light) 4 gm 0600,1200,1800,2300 PO Last administered on 06/03/18 05:39; Admin Dose 4 GM; Start 05/27/18 at 18:00 Lorazepam (Ativan) 0.5 mg Q4H PRN IV ANXIETY; Start 05/30/18 at 12:00 Metronidazole 100 ml @ 100 mls/hr Q8 IVPB Last administered on 06/03/18 05:39; Admin Dose 100 MLS/HR; Start 05/30/18 at 22:00 Acetaminophen (Tylenol Tab) 650 mg Q4H PRN PO MILD PAIN(1-3)OR ELEVATED TEMP; Start 05/31/18 at 13:00 Metoclopramide HCl (Reglan) 5 mg Q6 IV Last administered on 06/03/18 05:39; Admin Dose 5 MG; Start 05/31/18 at 13:00 Collagenase (Santyl) 1 applic DAILY TOP Last administered on 06/03/18 09:37; Admin Dose 1 APPLIC; Start 06/01/18 at 09:00 Amiodarone HCl (Cordarone) 200 mg BID PO Last administered on 06/03/18at 09:36; Admin Dose 200 MG; Start 06/01/18 at 21:00 Metoprolol Tartrate (Lopressor) 50 mg Q8 GTB Last administered on 06/03/18at 05:39; Admin Dose 50 MG; Start 06/01/18 at 14:30 Clonidine (Catapres) 0.1 mg Q6H PRN PO ELEVATED BLOOD PRESSURE; Start 06/03/18 at 03:30 GRISELDA DENNIS Jun 03, 2018 13:23
--- NOTE | 2018-06-03 15:32 | CONS ---
Consult Date/Type/Reason Admit Date/Time May 06, 2018 at 17:38 Initial Consult Date 05/10/18 Type of Consult Pulmonary Requesting Provider: ROLAND GIRON MD Date/Time of Note DATE: 06/03/18 TIME: 15:31 Subjective No resp distress. Objective Vital Signs Date Temp Pulse Resp B/P (MAP) Pulse Ox O2 O2 Flow FiO2 Time Delivery Rate 06/03/18 98.7 90 18 149/87 99 Mechanical 15:01 (107) Ventilator 06/03/18 30 15:01 Intake and Output 06/02/18 06/02/18 06/03/18 1515:00 23:00 07:00 IntakeIntake Total 100 ml 200 ml OutputOutput Total 900 ml BalanceBalance 100 ml -700 ml Exam GENERAL: Elderly appearing lady continues mechanical ventilation via tracheos yandel VITAL SIGNS: per chart NECK: Supple. No JVD or lymphadenopathy. CARDIAC EXAM: S1, S2. No added sounds or murmurs. CHEST: Diminished air entry bilaterally ABDOMEN: Soft, nontender. No guarding or rebound. EXTREMITIES: No cyanosis, clubbing edema +1 NEUROLOGIC: Generalized weakness. Vent Setting Ventilator Support Mode: AC, VC plus Fraction of Inspired Oxygen pe: 30 Positive End Expiratory Pressu: 5.0 Results/Medications Result Diagram: 06/03/1818 06/03/18 0618 Results 24 hrs Laboratory Tests Test 06/03/18 06:18 White Blood Count 14.5 H Red Blood Count 3.00 L Hemoglobin 9.4 L Hematocrit 31.0 L Mean Corpuscular Volume 103.3 H Mean Corpuscular Hemoglobin 31.3 Mean Corpuscular Hemoglobin Concent 30.3 L Red Cell Distribution Width 19.1 H Platelet Count 562 H Mean Platelet Volume 9.2 Immature Granulocytes % 2.700 H Neutrophils % 79.6 H Lymphocytes % 6.8 L Monocytes % 8.6 Eosinophils % 2.1 Basophils % 0.2 Nucleated Red Blood Cells % 0.0 Immature Granulocytes # 0.390 H Neutrophils # 11.6 H Lymphocytes # 1.0 Monocytes # 1.3 H Eosinophils # 0.3 Basophils # 0.0 Nucleated Red Blood Cells # 0.0 Sodium Level 132 L Potassium Level 4.3 Chloride Level 100 Carbon Dioxide Level 18 L Anion Gap 14 H Blood Urea Nitrogen 36 H Creatinine 1.82 H Est Glomerular Filtrat Rate mL/min Glucose Level 107 Calcium Level 9.1 Phosphorus Level 4.7 Magnesium Level 1.4 L Medications Current Medications IV Flush (NS 10 ml) 10 ml PRN IV ; Start 05/06/18 at 20:30 Ascorbic Acid (Vitamin C) 500 mg DAILY GTB Last administered on 06/03/18 09:36; Admin Dose 500 MG; Start 05/07/18 at 09:00 Albuterol/ Ipratropium (Duoneb) 3 ml Q2H RESP THERAPY PRN HHN SHORTNESS OF BREATH; Start 05/06/18 at 23:30 Zinc Sulfate (Zinc Sulfate) 220 mg DAILY GTB Last administered on 06/03/18 09:36; Admin Dose 220 MG; Start 05/07/18 at 09:00 Ondansetron HCl (Zofran Tab) 4 mg Q6H PRN GTB NAUSEA AND/OR VOMITING Last administered on 05/31/18 16:47; Admin Dose 4 MG; Start 05/07/18 at 00:15 Multivitamins (Multivitamin) 30 ml DAILY GTB Last administered on 06/03/18 09:36; Admin Dose 30 ML; Start 05/07/18 at 09:00 Miscellaneous Information (Pending [facility] Order For Wound Care) This patient goldman... PRN PRN XX WOUND CARE; Start 05/09/18 at 17:00 Vancomycin HCl (Vancomycin Oral Syringe) 250 mg Q6 PO Last administered on 06/03/18 13:39; Admin Dose 250 MG; Start 05/12/18 at 00:00 Albuterol (Ventolin Hfa) 4 puff Q6H RESP THERAPY INH Last administered on 06/03/18 13:21; Admin Dose 4 PUFF; Start 05/12/18 at 20:00 Ipratropium [place] (Atrovent Hfa) 4 puff Q6H RESP THERAPY INH Last administered on 06/03/18 13:21; Admin Dose 4 PUFF; Start 05/12/18 at 20:00 Heparin Sodium (Porcine) (Heparin (1000 Units/ml)) 2,800 unit AFTER DIALYSIS CATHETER Last administered on 05/29/18 18:24; Admin Dose 2,800 UNIT; Start 05/16/18 at 16:30 Furosemide (Lasix) 40 mg BID DIURETICS IV Last administered on 06/03/18 05:39; Admin Dose 40 MG; Start 05/19/18 at 09:00 Epoetin Zen-epbx (RETACRIT(esrd)) 20,000 unit Tu@1700 SC Last administered on 06/02/18 17:06; Admin Dose 20,000 UNIT; Start 05/19/18 at 17:00 Spironolactone (Aldactone) 50 mg DAILY GTB Last administered on 06/03/18 09:37; Admin Dose 50 MG; Start 05/21/18 at 09:00 Metolazone (Zaroxolyn) 5 mg DAILY@0600 PO Last administered on 05/28/18 05:48; Admin Dose 5 MG; Start 05/22/18 at 09:00; Status Hold Famotidine (Pepcid) 20 mg DAILY PEG Last administered on 06/03/18 09:36; Admin Dose 20 MG; Start 05/23/18 at 09:00 Morphine Sulfate (morphine) 6 mg Q4H PRN PEG SEVERE PAIN LEVEL 7-10 Last administered on 06/03/18 09:59; Admin Dose 6 MG; Start 05/22/18 at 17:00 Albumin Human 100 ml @ 100 mls/hr DURING DIALYSIS PRN IV hypotension on hd Last administered on 05/29/18 14:49; Admin Dose 100 MLS/HR; Start 05/27/18 at 07:30 Cholestyramine Resin (Questran Light) 4 gm 0600,1200,1800,2300 PO Last administered on 06/03/18 12:00; Admin Dose 4 GM; Start 05/27/18 at 18:00 Lorazepam (Ativan) 0.5 mg Q4H PRN IV ANXIETY; Start 05/30/18 at 12:00 Metronidazole 100 ml @ 100 mls/hr Q8 IVPB Last administered on 06/03/18 15:10; Admin Dose 100 MLS/HR; Start 05/30/18 at 22:00 Acetaminophen (Tylenol Tab) 650 mg Q4H PRN PO MILD PAIN(1-3)OR ELEVATED TEMP; Start 05/31/18 at 13:00 Metoclopramide HCl (Reglan) 5 mg Q6 IV Last administered on 06/03/18 13:39; Admin Dose 5 MG; Start 05/31/18 at 13:00 Collagenase (Santyl) 1 applic DAILY TOP Last administered on 06/03/18at 09:37; Admin Dose 1 APPLIC; Start 06/01/18 at 09:00 Amiodarone HCl (Cordarone) 200 mg BID PO Last administered on 06/03/18at 09:36; Admin Dose 200 MG; Start 06/01/18 at 21:00 Metoprolol Tartrate (Lopressor) 50 mg Q8 GTB Last administered on 06/03/18at 14:00; Admin Dose 50 MG; Start 06/01/18 at 14:30 Clonidine (Catapres) 0.1 mg Q6H PRN PO ELEVATED BLOOD PRESSURE; Start 06/03/18 at 03:30 Assessment/Plan Hospital Course (Demo Recall) Assessment 1. Hypoxemic respiratory failure failed multiple weaning trials 2. History of pulmonary fibrosis 3. Anemia questionable GI bleed 4. History of renal failure on hemodialysis 5. Decubitus ulcers Plan 1. Continue mechanical ventilation via tracheostomy. 2. Continue tube feeding 3. Continue wound care LAURA JENKINS MD, [facility] Jun 03, 2018 15:32
[2018-06-03] MEDS: ACETAMINOPHEN 325 MG TAB PO PRN (22:10)
[2018-06-04] VITALS (23 sets, daily range): BP systolic 108–157; BP diastolic 56–79; PULSE 71–101; RESP 18–26
[2018-06-04] MEDS: CHOLESTYRAMINE (LIGHT) 4 GM PACKET PO SCH ×5 (00:22→22:18)
[2018-06-04] MEDS: IPRATROPIUM (HFA) 12.9 GM INHALER INH SCH ×4 (01:13→19:33)
[2018-06-04] MEDS: ALBUTEROL HFA 8 GM INHALER INH SCH ×4 (01:13→19:33)
[2018-06-04] MEDS: VANCOMYCIN HCL 250 MG/5ML POSYG PO SCH ×4 (06:15→23:03)
[2018-06-04] MEDS: METOCLOPRAMIDE 10 MG INJ IV SCH ×4 (06:15→23:03)
[2018-06-04] MEDS: FUROSEMIDE 40 MG INJ IV SCH ×2 (06:16→18:06)
[2018-06-04] MEDS: metroNIDAZOLE 500 MG/NS (PMX) 100 ML IVPB SCH ×3 (06:16→20:41)
[2018-06-04] MEDS: METOPROLOL 50 MG TAB GTB SCH ×3 (06:17→21:32)
[2018-06-04] MEDS: ZINC SULFATE 220 MG CAP GTB SCH (08:42)
[2018-06-04] MEDS: ASCORBIC ACID 500 MG TAB GTB SCH (08:43)
[2018-06-04] MEDS: BALSAM PERU/CASTOR OIL 60 GM TUBE TOP SCH ×2 (08:43→20:40)
[2018-06-04] MEDS: COLLAGENASE 5 GM (UD JAR) TOP SCH (08:43)
[2018-06-04] MEDS: SPIRONOLACTONE 25 MG TAB GTB SCH (08:43)
[2018-06-04] MEDS: AMIODARONE 200 MG TAB PO SCH ×2 (08:43→20:40)
[2018-06-04] MEDS: FAMOTIDINE 20 MG TAB PEG SCH (08:43)
[2018-06-04] MEDS: MULTIVITAMINS 30 ML CUP GTB SCH (08:43)
--- NOTE | 2018-06-04 09:40 | PN ---
DATE: 06/04/2018 SUBJECTIVE: The patient is stable, no events overnight. No fevers, chills, nausea, vomiting. The p atient had good urinary output. No other events noted. OBJECTIVE: VITAL SIGNS: Blood pressure is 157/79, respiration 19, pulse 78, temperature 98.4. HEENT: Head is normocephalic. NECK: Supple. HEART: Regular rate. LUNGS: Show diminished breath sounds at base. ABDOMEN: Soft, nontender to palpation. No rebound or guarding. EXTREMITIES: Negative for clubbing, cyanosis. Positive edema. DERMATOLOGIC: No rashes. MUSCULOSKELETAL: No joint effusion. NEUROLOGIC: No change in exam. MEDICATIONS: Reviewed. LABORATORY DATA: Has been reviewed. ASSESSMENT AND PLAN: 1. Nonoliguric acute kidney injury on top of chronic kidney disease with previous baseline creatinin e around 2 to 2.5 mg/dL. Etiology of acute kidney injury secondary to acute tubular necrosis. The p atient was initiated on hemodialysis. The patient has shown adequate renal recovery. Anticipate dis continuing Juan catheter. We will monitor closely. 2. Volume overload secondary to acute kidney injury, congestive heart failure. Continue current diu retic regimen, adjust as needed. 3. Hypernatremia. The patient will discontinue free water flushes. Continue to monitor sodium leve ls. 4. Hypokalemia and hypomagnesemia. Continue to monitor and replete. 5. Metabolic acidosis. Will start the patient on Bicitra. 6. Anemia. Monitor hemoglobin and hematocrit levels. Continue Epogen as needed. 7. Ventilator-dependent respiratory failure. Vent settings and ABG was reviewed. Continue to monit or. 8. Sepsis, status post shock. The patient is completing antibiotic course. 9. Dysphagia, status post percutaneous endoscopic gastrostomy. Continue tube feedings. 10. Acute encephalopathy, etiology is toxic metabolic. 11. Lower extremity wounds. Continue current wound care. Dictated By: JEANA BANSAL DO NR/NTS Conf#: [id number] DID#: [id number] CC: ROLAND GIRON MD;*EndCC*
[2018-06-04] MEDS: morphine LIQ (10 MG/5 ML) CUP PEG PRN ×2 (12:42→18:27)
--- NOTE | 2018-06-04 16:21 | PN ---
Date/Time of Note Date/Time of Note DATE: 06/04/18 TIME: 16:19 Assessment/Plan VTE Prophylaxis Risk score (from Ns)>0 risk: 9 SCD applied (from Ns): Yes Pharmacological prophylaxis: heparin Lines/Catheters IV [facility]from [facility] Juan Urinary Cath still in place: Yes Reason Cath still needed: urinary retention Assessment/Plan Hospital Course Patient continues on ventilatory support without acute distress, remains hemodynamically stable, persistent leukocytosis, no fever. Plan for placement to subacute. Assessment/Plan -Atrial fibrillation was rapid ventricular response, s/p amiodarone drip. Rate is well controlled on p.o. amiodarone and metoprolol. Dr. Scanlon is following in cardiology consultation. -Septic shock secondary to urinary tract infection, anterior neck soft tissue infection, and C. difficile colitis, resolving. Continue antibiotics per ID. Dr. Doyle is following in infection disease consultation. -Acute respiratory failure requiring intubation and ventilatory support. Dr. Lambert is following in pulmonology consultation. -S/p tracheostomy on 05/29/18. -Acute kidney injury on chronic kidney disease. Started on HD this admission. Dr. Mckeon is following in nephrology consultation. -Anemia of chronic inflammation, stool for OB is negative, status post blood transfusion. Continue Epogen. -Metabolic acidosis, resolved. -Acute diastolic congestive heart failure. -Paroxysmal atrial fibrillation -COPD -Dysphagia with PEG. -G-tube mild malfunction, changed by GI Dr. Carolina is following in gastroenterology consultation. -Obesity Disposition: Subacute facility Further recommendations based on clinical course. Plan of care discussed with Dr. Eisenberg. Result Diagram: 06/04/18 0707 06/04/18 0707 Results 24hrs Laboratory Tests Test 06/04/18 07:07 White Blood Count 12.7 H Red Blood Count 2.82 L Hemoglobin 8.9 L Hematocrit 29.5 L Mean Corpuscular Volume 104.6 H Mean Corpuscular Hemoglobin 31.6 Mean Corpuscular Hemoglobin Concent 30.2 L Red Cell Distribution Width 19.8 H Platelet Count 493 H Mean Platelet Volume 9.1 Immature Granulocytes % 2.200 H Neutrophils % 83.2 H Lymphocytes % 6.8 L Monocytes % 7.1 Eosinophils % 0.5 Basophils % 0.2 Nucleated Red Blood Cells % 0.2 H Immature Granulocytes # 0.280 H Neutrophils # 10.6 H Lymphocytes # 0.9 Monocytes # 0.9 Eosinophils # 0.1 Basophils # 0.0 Nucleated Red Blood Cells # 0.0 Sodium Level 134 L Potassium Level 3.9 Chloride Level 103 Carbon Dioxide Level 20 L Anion Gap 11 Blood Urea Nitrogen 41 H Creatinine 1.84 H Est Glomerular Filtrat Rate mL/min Glucose Level 118 Calcium Level 9.1 Phosphorus Level 4.3 Magnesium Level 1.8 Exam/Review of Systems Exam Vitals Vital Signs Date Temp Pulse Resp B/P (MAP) Pulse Ox O2 O2 Flow FiO2 Time Delivery Rate 06/04/18 101 16:10 06/04/18 98.6 18 122/75 99 Mechanical 11:40 (91) Ventilator 06/04/18 30 11:32 Intake and Output 06/03/18 06/03/18 06/04/18 1515:00 23:00 07:00 IntakeIntake Total 50 ml 570 ml 500 ml OutputOutput Total 1050 ml 1900 ml BalanceBalance 50 ml -480 ml -1400 ml Exam Constitutional: awake, alert Respiratory: diminished breath sounds Cardiovascular: regular rate and rhythm Gastrointestinal: soft, tender, other (G-tube) Musculoskeletal: nl extremities to inspection Extremities: normal pulses Results Results 24hrs Laboratory Tests Test 06/04/18 07:07 White Blood Count 12.7 H Red Blood Count 2.82 L Hemoglobin 8.9 L Hematocrit 29.5 L Mean Corpuscular Volume 104.6 H Mean Corpuscular Hemoglobin 31.6 Mean Corpuscular Hemoglobin Concent 30.2 L Red Cell Distribution Width 19.8 H Platelet Count 493 H Mean Platelet Volume 9.1 Immature Granulocytes % 2.200 H Neutrophils % 83.2 H Lymphocytes % 6.8 L Monocytes % 7.1 Eosinophils % 0.5 Basophils % 0.2 Nucleated Red Blood Cells % 0.2 H Immature Granulocytes # 0.280 H Neutrophils # 10.6 H Lymphocytes # 0.9 Monocytes # 0.9 Eosinophils # 0.1 Basophils # 0.0 Nucleated Red Blood Cells # 0.0 Sodium Level 134 L Potassium Level 3.9 Chloride Level 103 Carbon Dioxide Level 20 L Anion Gap 11 Blood Urea Nitrogen 41 H Creatinine 1.84 H Est Glomerular Filtrat Rate mL/min Glucose Level 118 Calcium Level 9.1 Phosphorus Level 4.3 Magnesium Level 1.8 Medications Medication Current Medications IV Flush (NS 10 ml) 10 ml PRN IV ; Start 05/06/18 at 20:30 Ascorbic Acid (Vitamin C) 500 mg DAILY GTB Last administered on 06/04/18 08:43; Admin Dose 500 MG; Start 05/07/18 at 09:00 Albuterol/ Ipratropium (Duoneb) 3 ml Q2H RESP THERAPY PRN HHN SHORTNESS OF BREATH; Start 05/06/18 at 23:30 Zinc Sulfate (Zinc Sulfate) 220 mg DAILY GTB Last administered on 06/04/18 08:42; Admin Dose 220 MG; Start 05/07/18 at 09:00 Ondansetron HCl (Zofran Tab) 4 mg Q6H PRN GTB NAUSEA AND/OR VOMITING Last administered on 05/31/18 16:47; Admin Dose 4 MG; Start 05/07/18 at 00:15 Multivitamins (Multivitamin) 30 ml DAILY GTB Last administered on 06/04/18 08:43; Admin Dose 30 ML; Start 05/07/18 at 09:00 [facility]isc[facility] This patient goldman... PRN PRN XX WOUND CARE; Start 05/09/18 at 17:00 Vancomycin HCl (Vancomycin Oral Syringe) 250 mg Q6 PO Last administered on 06/04/18 12:42; Admin Dose 250 MG; Start 05/12/18 at 00:00 Albuterol (Ventolin Hfa) 4 puff Q6H RESP THERAPY INH Last administered on 06/04/18 13:14; Admin Dose 4 PUFF; Start 05/12/18 at 20:00 Ipratropium [place] (Atrovent Hfa) 4 puff Q6H RESP THERAPY INH Last administered on 06/04/18 13:14; Admin Dose 4 PUFF; Start 05/12/18 at 20:00 Heparin Sodium (Porcine) (Heparin (1000 Units/ml)) 2,800 unit AFTER DIALYSIS CATHETER Last administered on 05/29/18 18:24; Admin Dose 2,800 UNIT; Start 05/16/18 at 16:30 Furosemide (Lasix) 40 mg BID DIURETICS IV Last administered on 06/04/18 06:16; Admin Dose 40 MG; Start 05/19/18 at 09:00 Epoetin Zen-epbx (RETACRIT(esrd)) 20,000 unit Tu@1700 SC Last administered on 06/02/18 17:06; Admin Dose 20,000 UNIT; Start 05/19/18 at 17:00 Spironolactone (Aldactone) 50 mg DAILY GTB Last administered on 06/04/18 08:43; Admin Dose 50 MG; Start 05/21/18 at 09:00 Metolazone (Zaroxolyn) 5 mg DAILY@0600 PO Last administered on 05/28/18 05:48; Admin Dose 5 MG; Start 05/22/18 at 09:00; Status Hold Famotidine (Pepcid) 20 mg DAILY PEG Last administered on 06/04/18 08:43; Admin Dose 20 MG; Start 05/23/18 at 09:00 Morphine Sulfate (morphine) 6 mg Q4H PRN PEG SEVERE PAIN LEVEL 7-10 Last administered on 06/04/18 12:42; Admin Dose 6 MG; Start 05/22/18 at 17:00 Albumin Human 100 ml @ 100 mls/hr DURING DIALYSIS PRN IV hypotension on hd Last administered on 05/29/18 14:49; Admin Dose 100 MLS/HR; Start 05/27/18 at 07:30 Cholestyramine Resin (Questran Light) 4 gm 0600,1200,1800,2300 PO Last administered on 06/04/18 12:40; Admin Dose 4 GM; Start 05/27/18 at 18:00 Lorazepam (Ativan) 0.5 mg Q4H PRN IV ANXIETY; Start 05/30/18 at 12:00 Metronidazole 100 ml @ 100 mls/hr Q8 IVPB Last administered on 06/04/18 12:41; Admin Dose 100 MLS/HR; Start 05/30/18 at 22:00 Acetaminophen (Tylenol Tab) 650 mg Q4H PRN PO MILD PAIN(1-3)OR ELEVATED TEMP Last administered on 06/03/18 22:10; Admin Dose 650 MG; Start 05/31/18 at 13:00 Metoclopramide HCl (Reglan) 5 mg Q6 IV Last administered on 06/04/18 12:40; Admin Dose 5 MG; Start 05/31/18 at 13:00 Collagenase (Santyl) 1 applic DAILY TOP Last administered on 06/04/18 08:43; Admin Dose 1 APPLIC; Start 06/01/18 at 09:00 Amiodarone HCl (Cordarone) 200 mg BID PO Last administered on 06/04/18 08:43; Admin Dose 200 MG; Start 06/01/18 at 21:00 Metoprolol Tartrate (Lopressor) 50 mg Q8 GTB Last administered on 06/04/18at 12:41; Admin Dose 50 MG; Start 06/01/18 at 14:30 Clonidine (Catapres) 0.1 mg Q6H PRN PO ELEVATED BLOOD PRESSURE; Start 06/03/18 at 03:30 GRISELDA DENNIS Jun 04, 2018 16:21
[2018-06-04] MEDS ORDERED: MAGNESIUM SULFATE 2 GM/50 ML 50 ML IVPB ONE (16:30)
--- NOTE | 2018-06-04 17:16 | CONS ---
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 colonization of the airway by pseudomonas and ESBL+klebsiella - h/o possible, recurrent HCAP due to pseudomonas and ESBL+klebsiella - h/o recurrent HCAP due to MRSA and Enterobacter (culture of tracheal aspirate on 07/16/2017 that was collected at [facility]) . Pt took vancomycin and ceftazidime - h/o decannulation prior to admission - h/o tracheostomy on 06/11/2017 - h/o SIRS from UGIB in 2018 - h/o thoracentesis on 07/18/2017, transudative (protein <2, LDH 279) - h/o bleeding from the trach site in 2018 - h/o septic shock due to pneumonia, ARDS, bacteremia, fungemia in 2018 - h/o ARDS in 2018 - h/o smoking - COPD - h/o ILD per medical record - h/o PAF, improved # GI - C diff colitis, diagnosed on 05/11/2018 - h/o intermittent diarrhea, Pt had multiple negative C. diff tests at [facility] at [facility] in the past; none was positive until 05/11/2018 - dysphagia - h/o PEG placement 06/13/2018 - protein calorie malnutrition - h/o coffee ground emesis/UGIB on 12/23/2017 due to deep ulceration of distal esophagus and gastritis on EGD 12/26/2017. No e/o H. pylori - h/o possible appendicitis on CT on 11/22/2017, Pt took ertapenem (11/24/2017- 12/01/2017) - h/o extensive adhesions lower abdominal and pelvis between small bowel to each other and to colon and to abdominal wall, anterior pelvic wall chronic abscess secondary to probably an old perforated diverticulitis, torsion of small bowel around these dense adhesion causing multiple obstructive points - h/o laparoscopic exploration and extensive lysis of adhesions and drainage of anterior pelvic wall abscess 09/16/2017. Cultures were negative, no e/o malignancy. Pt took pip/tazo (09/16/2017-09/26/2017) - h/o EGD and exchange of PEG on 09/01/2017 - h/o partial obstruction mid jejunum in L anterior central pelvis with suggestion of a 3 cm soft tissue mass on CT 08/28/2017 - h/o internal stomal deep ulcer behind the internal bumper, gastritis and esophagitis, Rodriguez's cannot be ruled out, per EGD with biopsy 07/23/2017 - h/o GIB s/p flex sig showed polyp; stool OB negative on 06/29/17 - h/o stool OB positive status - h/o SBO and ileus due to pain meds - h/o mildly elevated CEA # renal/ - anasarca - started on HD on 05/15/2018, via Juan in R groin - recurrent NATHAN on CKD - 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 Her strain of CRE was sensitive to colistin, Avycaz, and Vabomere but resistant to Zerbaxa (reported on 05/19/2018) - Hyponatremia - Hyperkalemia, now hypokalemia - Metabolic acidosis - adrenal insufficiency - h/o vaginal bleed in 2018 - h/o colonization of urinary tract by ESBL+klebsiella, VRE - h/o recurrent, symptomatic UTI due to carbapenem-resistant kleb (MDR strain) per urine culture 10/04/17, 10/09/17, 10/21/2017, P took colistin (10/09/2017- 10/15/2017), fosfomycin for carbapenemase-producing klebsiella and VRE on 10/25/2017 and 10/28/2017 - h/o funguria - h/o urinary retention # fungemia, bacteremia 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 improved. Probable manifestation of endocarditis. Pt declined MRI on 08/06/2017 - h/o infection of R toes due to pseudomonas. coagulase negative Staph likely a colonizer - h/o intertrigo of the groin, resolved with nystatin powder - h/o scabies, locally crusted lesion over L scapula, s/p permethrin cream and pGT ivermectin on 08/11/2017, 08/12/2017, 08/19/2017. Repeat skin scraping on 08/21/2017 was negative for scabies # psych, neuro - acute toxic metabolic encephalopathy - improving - decreased hearing b/l - h/o critical illness polyneuropathy - anxiety/depression, bipolar d/o, seen by Psychiatry in the past - chronic pain syndrome - h/o medical non-compliance: she would refuse her medications, treatment and straight catheterization in 2018 # hematological, vascular - chronic anemia requiring blood transfusion intermittently - Macrocytic anemia - 3.1 cm AAA on imaging - PVD Recommendations: - monitor wbc curve closely; avoid additional abx at this time - monitor/trend fever curve closely - continue pGT vancomycin (05/11/2018-) for C. diff colitis - continue IV metronidazole (05/11/2018-05/29/2018; restart 05/30/2018-) for now; can likely DC soon as diarrhea is improving. Pt completed meropenem for HCAP (05/13/2018-05/19/2018). - order in place to send linn cultures if temp >100.3 F - consider removing R groin HD catheter if feasible Consultation Date/Type/Reason Admit Date/Time May 06, 2018 at 17:38 Initial Consult Date 05/10/18 Type of Consult ID Requesting Provider: ROLAND GIRON MD Date/Time of Note DATE: 06/04/18 TIME: 17:14 prolonged service time 1 hr Exam/Review of Systems Exam Vitals Vital Signs Date Temp Pulse Resp B/P (MAP) Pulse Ox O2 O2 Flow FiO2 Time Delivery Rate 06/04/18 88 24 99 30 16:58 06/04/18 98.7 108/68 Mechanical 15:45 (81) Ventilator Intake and Output 06/03/18 06/03/18 06/04/18 1515:00 23:00 07:00 IntakeIntake Total 50 ml 570 ml 500 ml OutputOutput Total 1050 ml 1900 ml BalanceBalance 50 ml -480 ml -1400 ml Constitutional: alert, oriented, well developed Psych: no complaints, nl mood/affect Head: normocephalic, atraumatic Eyes: nl conjunctiva, EOMI, nl lids, nl sclera, PERRL Respiratory: clear to auscultation, normal air movement Cardiovascular: regular rate and rhythm, nl pulses Neurological: LEAD IOS DEVELOPER II-XII intact, nl mental status, nl speech, nl strength Results Result Diagram: 06/04/18 0707 06/04/18 0707 Results 24hrs Laboratory Tests Test 06/04/18 07:07 White Blood Count 12.7 H Red Blood Count 2.82 L Hemoglobin 8.9 L Hematocrit 29.5 L Mean Corpuscular Volume 104.6 H Mean Corpuscular Hemoglobin 31.6 Mean Corpuscular Hemoglobin Concent 30.2 L Red Cell Distribution Width 19.8 H Platelet Count 493 H Mean Platelet Volume 9.1 Immature Granulocytes % 2.200 H Neutrophils % 83.2 H Lymphocytes % 6.8 L Monocytes % 7.1 Eosinophils % 0.5 Basophils % 0.2 Nucleated Red Blood Cells % 0.2 H Immature Granulocytes # 0.280 H Neutrophils # 10.6 H Lymphocytes # 0.9 Monocytes # 0.9 Eosinophils # 0.1 Basophils # 0.0 Nucleated Red Blood Cells # 0.0 Sodium Level 134 L Potassium Level 3.9 Chloride Level 103 Carbon Dioxide Level 20 L Anion Gap 11 Blood Urea Nitrogen 41 H Creatinine 1.84 H Est Glomerular Filtrat Rate mL/min Glucose Level 118 Calcium Level 9.1 Phosphorus Level 4.3 Magnesium Level 1.8 Medications Medication Current Medications IV Flush (NS 10 ml) 10 ml PRN IV ; Start 05/06/18 at 20:30 Ascorbic Acid (Vitamin C) 500 mg DAILY GTB Last administered on 06/04/18 08 :43; Admin Dose 500 MG; Start 05/07/18 at 09:00 Albuterol/ Ipratropium (Duoneb) 3 ml Q2H RESP THERAPY PRN HHN SHORTNESS OF BREATH; Start 05/06/18 at 23:30 Zinc Sulfate (Zinc Sulfate) 220 mg DAILY GTB Last administered on 06/04/18 08:42; Admin Dose 220 MG; Start 05/07/18 at 09:00 Ondansetron HCl (Zofran Tab) 4 mg Q6H PRN GTB NAUSEA AND/OR VOMITING Last administered on 05/31/18 16:47; Admin Dose 4 MG; Start 05/07/18 at 00:15 Multivitamins (Multivitamin) 30 ml DAILY GTB Last administered on 06/04/18 08:43; Admin Dose 30 ML; Start 05/07/18 at 09:00 [facility]iscellaneous [facility] This patient goldman... PRN PRN XX WOUND CARE; Start 05/09/18 at 17:00 Vancomycin HCl (Vancomycin Oral Syringe) 250 mg Q6 PO Last administered on 06/04/18 12:42; Admin Dose 250 MG; Start 05/12/18 at 00:00 Albuterol (Ventolin Hfa) 4 puff Q6H RESP THERAPY INH Last administered on 06/04/18 13:14; Admin Dose 4 PUFF; Start 05/12/18 at 20:00 Ipratropium [place] (Atrovent Hfa) 4 puff Q6H RESP THERAPY INH Last administered on 06/04/18 13:14; Admin Dose 4 PUFF; Start 05/12/18 at 20:00 Heparin Sodium (Porcine) (Heparin (1000 Units/ml)) 2,800 unit AFTER DIALYSIS CATHETER Last administered on 05/29/18 18:24; Admin Dose 2,800 UNIT; Start 05/16/18 at 16:30 Furosemide (Lasix) 40 mg BID DIURETICS IV Last administered on 06/04/18 06:16; Admin Dose 40 MG; Start 05/19/18 at 09:00 Epoetin Zen-epbx (RETACRIT(esrd)) 20,000 unit Tu@1700 SC Last administered on 06/02/18 17:06; Admin Dose 20,000 UNIT; Start 05/19/18 at 17:00 Spironolactone (Aldactone) 50 mg DAILY GTB Last administered on 06/04/18 08:43; Admin Dose 50 MG; Start 05/21/18 at 09:00 Metolazone (Zaroxolyn) 5 mg DAILY@0600 PO Last administered on 05/28/18 05:48; Admin Dose 5 MG; Start 05/22/18 at 09:00; Status Hold Famotidine (Pepcid) 20 mg DAILY PEG Last administered on 06/04/18 08:43; Admin Dose 20 MG; Start 05/23/18 at 09:00 Morphine Sulfate (morphine) 6 mg Q4H PRN PEG SEVERE PAIN LEVEL 7-10 Last admin istered on 06/04/18 12:42; Admin Dose 6 MG; Start 05/22/18 at 17:00 Albumin Human 100 ml @ 100 mls/hr DURING DIALYSIS PRN IV hypotension on hd Last administered on 05/29/18 14:49; Admin Dose 100 MLS/HR; Start 05/27/18 at 07:30 Cholestyramine Resin (Questran Light) 4 gm 0600,1200,1800,2300 PO Last administered on 06/04/18 12:40; Admin Dose 4 GM; Start 05/27/18 at 18:00 Lorazepam (Ativan) 0.5 mg Q4H PRN IV ANXIETY; Start 05/30/18 at 12:00 Metronidazole 100 ml @ 100 mls/hr Q8 IVPB Last administered on 06/04/18 12:41; Admin Dose 100 MLS/HR; Start 05/30/18 at 22:00 Acetaminophen (Tylenol Tab) 650 mg Q4H PRN PO MILD PAIN(1-3)OR ELEVATED TEMP Last administered on 06/03/18 22:10; Admin Dose 650 MG; Start 05/31/18 at 13:00 Metoclopramide HCl (Reglan) 5 mg Q6 IV Last administered on 06/04/18 12:40; Admin Dose 5 MG; Start 05/31/18 at 13:00 Collagenase (Santyl) 1 applic DAILY TOP Last administered on 06/04/18 08:43; Admin Dose 1 APPLIC; Start 06/01/18 at 09:00 Amiodarone HCl (Cordarone) 200 mg BID PO Last administered on 06/04/18 08:43; Admin Dose 200 MG; Start 06/01/18 at 21:00 Metoprolol Tartrate (Lopressor) 50 mg Q8 GTB Last administered on 06/04/18at 12:41; Admin Dose 50 MG; Start 06/01/18 at 14:30 Clonidine (Catapres) 0.1 mg Q6H PRN PO ELEVATED BLOOD PRESSURE; Start 06/03/18 at 03:30 Magnesium Sulfate 50 ml @ 25 mls/hr ONCE ONCE IVPB Last administered on 06/04/18at 17:11; Admin Dose 25 MLS/HR; Start 06/04/18 at 16:30; Stop 06/04/18 at 18:29 MANN VALDEZ MD Jun 04, 2018 17:16
[2018-06-04] MEDS: ACETAMINOPHEN 325 MG TAB PO PRN (20:40)
[2018-06-05] VITALS (22 sets, daily range): BP systolic 128–148; BP diastolic 62–77; PULSE 73–102; RESP 19–30
[2018-06-05] MEDS: ALBUTEROL HFA 8 GM INHALER INH SCH ×4 (04:11→20:01)
[2018-06-05] MEDS: IPRATROPIUM (HFA) 12.9 GM INHALER INH SCH ×4 (04:11→20:01)
[2018-06-05] MEDS: FUROSEMIDE 40 MG INJ IV SCH ×2 (05:58→17:49)
[2018-06-05] MEDS: metroNIDAZOLE 500 MG/NS (PMX) 100 ML IVPB SCH ×2 (05:58→14:32)
[2018-06-05] MEDS: CHOLESTYRAMINE (LIGHT) 4 GM PACKET PO SCH ×4 (05:59→22:56)
[2018-06-05] MEDS: METOPROLOL 50 MG TAB GTB SCH ×3 (05:59→20:36)
[2018-06-05] MEDS: METOCLOPRAMIDE 10 MG INJ IV SCH ×4 (05:59→22:55)
[2018-06-05] MEDS: VANCOMYCIN HCL 250 MG/5ML POSYG PO SCH ×4 (05:59→22:56)
[2018-06-05] MEDS: ASCORBIC ACID 500 MG TAB GTB SCH (08:22)
[2018-06-05] MEDS: AMIODARONE 200 MG TAB PO SCH ×2 (08:22→20:35)
[2018-06-05] MEDS: ZINC SULFATE 220 MG CAP GTB SCH (08:22)
[2018-06-05] MEDS: BALSAM PERU/CASTOR OIL 60 GM TUBE TOP SCH ×2 (08:22→20:37)
[2018-06-05] MEDS: SPIRONOLACTONE 25 MG TAB GTB SCH (08:22)
[2018-06-05] MEDS: FAMOTIDINE 20 MG TAB PEG SCH (08:22)
[2018-06-05] MEDS: MULTIVITAMINS 30 ML CUP GTB SCH (08:22)
[2018-06-05] MEDS: COLLAGENASE 5 GM (UD JAR) TOP SCH (08:22)
[2018-06-05] MEDS ORDERED: POTASSIUM CHLORIDE 20 MEQ POWDER FOR ORAL SOLN GTB ONE (09:30)
[2018-06-05] MEDS: CITRIC ACID/NA CITRATE 30 ML CUP PO SCH ×2 (09:30→20:35)
--- NOTE | 2018-06-05 09:32 | PN ---
DATE: 06/05/2018 SUBJECTIVE: The patient is stable, no events overnight. OBJECTIVE: VITAL SIGNS: Blood pressure is 136/77, respiration 19, pulse 85, temperature 98.3. HEENT: Head is normocephalic. NECK: Supple. HEART: Regular rate. LUNGS: Show diminished breath sounds at base. ABDOMEN: Soft, nontender to palpation without rebound or guarding. EXTREMITIES: Negative for clubbing, cyanosis. Positive edema. DERMATOLOGIC: No rashes. MUSCULOSKELETAL: No joint effusion. NEUROLOGIC: No change in exam. MEDICATIONS: Reviewed. LABORATORY DATA: From 06/05/2018 was reviewed. ASSESSMENT AND PLAN: 1. Nonoliguric acute kidney injury on top of chronic kidney disease with previous baseline creatinin e between 2 to 2.5 mg/dL. Etiology of acute kidney injury is secondary to acute tubular necrosis. T he patient is status post hemodialysis. The patient's Juan catheter was removed. The patient has shown adequate renal recovery. Continue to monitor. 2. Volume overload secondary to acute kidney injury, congestive heart failure, clinically improving. Continue diuretic regimen. 3. Hypokalemia. We will replete with potassium chloride. 4. Hypernatremia. The patient has free water flushes were discontinued. Continue to monitor. 5. Metabolic acidosis. Continue Bicitra. 6. Anemia. Continue to monitor hemoglobin and hematocrit levels. Continue Epogen. 7. Mineral bone disorder, monitor calcium and phosphorus levels. 8. Ventilatory dependent respiratory failure. Vent settings and ABG was reviewed. Continue to [facility]. 9. Sepsis, status post shock. The patient is completing antibiotic course. 10. Dysphagia. Continue tube feeding. 11. Acute encephalopathy, etiology is toxic metabolic. 12. Lower extremity wounds. Continue wound care. Dictated By: JEANA FINE/NTS Conf#: [id number] DID#: [id number]
[2018-06-05] MEDS: morphine LIQ (10 MG/5 ML) CUP PEG PRN (11:35)
--- NOTE | 2018-06-05 12:23 | CONS ---
[facility] HCIS Consult Follow-up Patient Name: Zuly Mcwilliams Unit Number: [id number] Date of : 1945 Patient Status: Admitted Inpatient Attending Doctor: Roland Giron MD Edit: CELESTINE SANCHEZ M.D. on 06/08/18 @ 04:46 Daniel: I discussed the management with SUPPORT SERVICES MANAGER and agree Assessment/Plan Assessment/Plan Hospital Course (Demo Recall) # sepsis, SIRS, pulmonary, cardiac - s/p septic shock due to pneumonia and C diff colitis - acute on chronic hypoxic respiratory failure, persistent - s/p reintubation 05/12/2018 - s/p re-do trach on 05/29/2018 - recurrent colonization of the anterior neck wound with ESBL+kleb, MRSA, GBS, corynebacteria on 05/06/2018 -s/p meropenem - h/o pneumonia vs. colonization of the airway by pseudomonas and ESBL+klebsiella - h/o possible, recurrent HCAP due to pseudomonas and ESBL+klebsiella - h/o recurrent HCAP due to MRSA and Enterobacter (culture of tracheal aspirate on 07/16/2017 that was collected at [facility]) . Pt took vancomycin and ceftazidime - h/o decannulation prior to admission - h/o tracheostomy on 06/11/2017 - h/o SIRS from UGIB in 2018 - h/o thoracentesis on 07/18/2017, transudative (protein <2, LDH 279) - h/o bleeding from the trach site in 2018 - h/o septic shock due to pneumonia, ARDS, bacteremia, fungemia in 2018 - h/o ARDS in 2018 - h/o smoking - COPD - h/o ILD per medical record - h/o PAF, improved # GI - C diff colitis, diagnosed on 05/11/2018 - h/o intermittent diarrhea, Pt had multiple negative C. diff tests at [facility] at OSH in the past; none was positive until 05/11/2018 - dysphagia - h/o PEG placement 06/13/2018 - protein calorie malnutrition - h/o coffee ground emesis/UGIB on 12/23/2017 due to deep ulceration of distal esophagus and gastritis on EGD 12/26/2017. No e/o H. pylori - h/o possible appendicitis on CT on 11/22/2017, Pt took ertapenem (11/24/2017- 12/01/2017) - h/o extensive adhesions lower abdominal and pelvis between small bowel to each other and to colon and to abdominal wall, anterior pelvic wall chronic abscess secondary to probably an old perforated diverticulitis, torsion of small bowel around these dense adhesion causing multiple obstructive points - h/o laparoscopic exploration and extensive lysis of adhesions and drainage of anterior pelvic wall abscess 09/16/2017. Cultures were negative, no e/o malig natalie. Pt took pip/tazo (09/16/2017-09/26/2017) - h/o EGD and exchange of PEG on 09/01/2017 - h/o partial obstruction mid jejunum in L anterior central pelvis with suggestion of a 3 cm soft tissue mass on CT 08/28/2017 - h/o internal stomal deep ulcer behind the internal bumper, gastritis and esophagitis, Rodriguez's cannot be ruled out, per EGD with biopsy 07/23/2017 - h/o GIB s/p flex sig showed polyp; stool OB negative on 06/29/17 - h/o stool OB positive status - h/o SBO and ileus due to pain meds - h/o mildly elevated CEA # renal/ - anasarca - started on HD on 05/15/2018, via Juan in R groin - recurrent NATHAN on CKD - 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 Her strain of CRE was sensitive to colistin, Avycaz, and Vabomere but resistant to Zerbaxa (reported on 05/19/2018) - Hyponatremia - Hyperkalemia, now hypokalemia - Metabolic acidosis - adrenal insufficiency - h/o vaginal bleed in 2018 - h/o colonization of urinary tract by ESBL+klebsiella, VRE - h/o recurrent, symptomatic UTI due to carbapenem-resistant kleb (MDR strain) per urine culture 10/04/17, 10/09/17, 10/21/2017, P took colistin (10/09/2017- 10/15/2017), fosfomycin for carbapenemase-producing klebsiella and VRE on 10/25/2017 and 10/28/2017 - h/o funguria - h/o urinary retention # fungemia, bacteremia 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 improved. Probable manifestation of endocarditis. Pt declined MRI on 08/06/2017 - h/o infection of R toes due to pseudomonas. coagulase negative Staph likely a colonizer - h/o intertrigo of the groin, resolved with nystatin powder - h/o scabies, locally crusted lesion over L scapula, s/p permethrin cream and pGT ivermectin on 08/11/2017, 08/12/2017, 08/19/2017. Repeat skin scraping on 08/21/2017 was negative for scabies # psych, neuro - acute toxic metabolic encephalopathy - improving - decreased hearing b/l - h/o critical illness polyneuropathy - anxiety/depression, bipolar d/o, seen by Psychiatry in the past - chronic pain syndrome - h/o medical non-compliance: she would refuse her medications, treatment and straight catheterization in 2018 # hematological, vascular - chronic anemia requiring blood transfusion intermittently - Macrocytic anemia - 3.1 cm AAA on imaging - PVD Recommendations: - monitor wbc curve closely; avoid additional abx at this time - monitor/trend fever curve closely - continue pGT vancomycin (05/11/2018-) for C. diff colitis - Discontinue IV metronidazole (05/11/2018-05/29/2018; restart 05/30/2018-06/05/18) Pt completed meropenem for HCAP (05/13/2018-05/19/2018). - order in place to send linn cultures if temp >100.3 F - consider removing R groin HD catheter if feasible Plan was d/w patient's RN, and with Dr. Sanchez Thank you Consultation Date/Type/Reason Admit Date/Time May 06, 2018 at 17:38 Initial Consult Date 05/07/18 Type of Consult ID Requesting Provider: ROLAND GIRON MD Date/Time of Note DATE: 06/05/18 TIME: 12:21 24 HR Interval Summary Free Text/Dictation The patient shook her head "yes" re: pain and "yes" re: wanting pain medication. I alerted the RN who states she recently gave the patient pain medication. The patient did not respond to any of my other questions. The patient appeared tachypneic, per nsg the patient refused to be suctioned at times, she will try again now. Otherwise patient has remained afebrile and no acute issue were reported. Still with liquid stool draining via rectal tube. Exam/Review of Systems Exam Vitals Vital Signs Date Temp Pulse Resp B/P (MAP) Pulse Ox O2 O2 Flow FiO2 Time Delivery Rate 06/05/18 98.0 99 22 130/62 96 Mechanical 11:50 (84) Ventilator Trach Collar 06/05/18 30 09:55 Intake and Output 06/04/18 06/04/18 06/05/18 1515:00 23:00 07:00 IntakeIntake Total 100 ml 570 ml 450 ml OutputOutput Total 1050 ml 1200 ml BalanceBalance 100 ml -480 ml -750 ml Allergies Coded Allergies shellfish derived (Unverified Allergy, Unknown, 05/06/18) Exam Constitutional: alert, well developed, non-verbal, frail, obese, other (c hronically debilitated, was able to shake her head yes to a question, eye tracks me, but did not respond to all questions) Psych: other (BRITTANY) Head: normocephalic, atraumatic Eyes: nl conjunctiva, nl lids, nl sclera ENMT: nl external ears & nose, nl nasal mucosa & septum Neck: supple, non-tender, other (on vent via trach, trach midline, sutures intact, site is c/d/i) Respiratory: normal air movement, diminished breath sounds (bilaterally, anteriorly), respirations (tachypneic 27); No wheezing Cardiovascular: regular rate and rhythm, nl pulses Gastrointestinal: soft, non-tender, bowel sounds (normoactive ), other (PEG site is c/d/i; Flexiseal draining brown liquid stool); No distended, No firm Genitourinary - Female: other (F/c draining yellow urine with small amt of white seds noted. HD catheter R groin, site is c/d/i; +Intertrigo of groin) Musculoskeletal: muscle weakness, other (julia foot drop) Extremities: normal pulses, edema (BUE, BLE); No tenderness Neurological: other (Eye tracks me) Skin: nl turgor, other (Reviewed nsg notes/photos. LLE dressing c/d/i. R hand with a large linear shaped purple discoloration that when palpated felt fluctuant like a blister. It is intact with no openings or drainage.) Results Result Diagram: 06/05/18 0706 06/05/18 0706 Results 24hrs Laboratory Tests Test 06/05/18 07:06 White Blood Count 11.9 H Red Blood Count 2.73 L Hemoglobin 8.6 L Hematocrit 28.8 L Mean Corpuscular Volume 105.5 H Mean Corpuscular Hemoglobin 31.5 Mean Corpuscular Hemoglobin Concent 29.9 L Red Cell Distribution Width 20.4 H Platelet Count 471 H Mean Platelet Volume 9.3 Immature Granulocytes % 1.400 H Neutrophils % 84.1 H Lymphocytes % 8.4 L Monocytes % 5.4 Eosinophils % 0.6 Basophils % 0.1 Nucleated Red Blood Cells % 0.0 Immature Granulocytes # 0.170 H Neutrophils # 10.0 H Lymphocytes # 1.0 Monocytes # 0.6 Eosinophils # 0.1 Basophils # 0.0 Nucleated Red Blood Cells # 0.0 Sodium Level 138 Potassium Level 3.4 L Chloride Level 107 Carbon Dioxide Level 17 L Anion Gap 14 H Blood Urea Nitrogen 45 H Creatinine 1.83 H Est Glomerular Filtrat Rate mL/min Glucose Level 101 Calcium Level 9.2 Phosphorus Level 3.9 Magnesium Level 2.2 Medications Medication Current Medications IV Flush (NS 10 ml) 10 ml PRN IV ; Start 05/06/18 at 20:30 Ascorbic Acid (Vitamin C) 500 mg DAILY GTB Last administered on 06/05/18 08:22; Admin Dose 500 MG; Start 05/07/18 at 09:00 Albuterol/ Ipratropium (Duoneb) 3 ml Q2H RESP THERAPY PRN HHN SHORTNESS OF BREATH; Start 05/06/18 at 23:30 Zinc Sulfate (Zinc Sulfate) 220 mg DAILY GTB Last administered on 06/05/18 08:22; Admin Dose 220 MG; Start 05/07/18 at 09:00 Ondansetron HCl (Zofran Tab) 4 mg Q6H PRN GTB NAUSEA AND/OR VOMITING Last administered on 05/31/18 16:47; Admin Dose 4 MG; Start 05/07/18 at 00:15 Multivitamins (Multivitamin) 30 ml DAILY GTB Last administered on 06/05/18 08:22; Admin Dose 30 ML; Start 05/07/18 at 09:00 Miscellaneous Information (Pending [facility] Order For Wound Care) This patient goldman... PRN PRN XX WOUND CARE; Start 05/09/18 at 17:00 Vancomycin HCl (Vancomycin Oral Syringe) 250 mg Q6 PO Last administered on 06/05/18 11:34; Admin Dose 250 MG; Start 05/12/18 at 00:00 Albuterol (Ventolin Hfa) 4 puff Q6H RESP THERAPY INH Last administered on 06/05/18 07:51; Admin Dose 4 PUFF; Start 05/12/18 at 20:00 Ipratropium [place] (Atrovent Hfa) 4 puff Q6H RESP THERAPY INH Last administered on 06/05/18 07:50; Admin Dose 4 PUFF; Start 05/12/18 at 20:00 Heparin Sodium (Porcine) (Heparin (1000 Units/ml)) 2,800 unit AFTER DIALYSIS CATHETER Last administered on 05/29/18 18:24; Admin Dose 2,800 UNIT; Start 05/16/18 at 16:30 Furosemide (Lasix) 40 mg BID DIURETICS IV Last administered on 06/05/18 05:58; Admin Dose 40 MG; Start 05/19/18 at 09:00 Epoetin Zen-epbx (RETACRIT(esrd)) 20,000 unit Tu@1700 SC Last administered on 06/02/18 17:06; Admin Dose 20,000 UNIT; Start 05/19/18 at 17:00 Spironolactone (Aldactone) 50 mg DAILY GTB Last administered on 06/05/18 08 :22; Admin Dose 50 MG; Start 05/21/18 at 09:00 Metolazone (Zaroxolyn) 5 mg DAILY@0600 PO Last administered on 05/28/18 05:48; Admin Dose 5 MG; Start 05/22/18 at 09:00; Status Hold Famotidine (Pepcid) 20 mg DAILY PEG Last administered on 06/05/18 08:22; Admin Dose 20 MG; Start 05/23/18 at 09:00 Morphine Sulfate (morphine) 6 mg Q4H PRN PEG SEVERE PAIN LEVEL 7-10 Last administered on 06/05/18 11:35; Admin Dose 6 MG; Start 05/22/18 at 17:00 Albumin Human 100 ml @ 100 mls/hr DURING DIALYSIS PRN IV hypotension on hd Last administered on 05/29/18 14:49; Admin Dose 100 MLS/HR; Start 05/27/18 at 07:30 Cholestyramine Resin (Questran Light) 4 gm 0600,1200,1800,2300 PO Last administered on 06/05/18 11:34; Admin Dose 4 GM; Start 05/27/18 at 18:00 Lorazepam (Ativan) 0.5 mg Q4H PRN IV ANXIETY; Start 05/30/18 at 12:00 Metronidazole 100 ml @ 100 mls/hr Q8 IVPB Last administered on 06/05/18 05: 58; Admin Dose 100 MLS/HR; Start 05/30/18 at 22:00 Acetaminophen (Tylenol Tab) 650 mg Q4H PRN PO MILD PAIN(1-3)OR ELEVATED TEMP Last administered on 06/04/18 20:40; Admin Dose 650 MG; Start 05/31/18 at 13:00 Metoclopramide HCl (Reglan) 5 mg Q6 IV Last administered on 06/05/18 11:34; Admin Dose 5 MG; Start 05/31/18 at 13:00 Collagenase (Santyl) 1 applic DAILY TOP Last administered on 06/05/18 08:22; Admin Dose 1 APPLIC; Start 06/01/18 at 09:00 Amiodarone HCl (Cordarone) 200 mg BID PO Last administered on 06/05/18 08:22; Admin Dose 200 MG; Start 06/01/18 at 21:00 Metoprolol Tartrate (Lopressor) 50 mg Q8 GTB Last administered on 06/05/18 05:59; Admin Dose 50 MG; Start 06/01/18 at 14:30 Clonidine (Catapres) 0.1 mg Q6H PRN PO ELEVATED BLOOD PRESSURE; Start 06/03/18 at 03:30 Citric Acid/ Sodium Citrate (Bicitra) 30 ml BID PO Last administered on 06/05/18 09:30; Admin Dose 30 ML; Start 06/05/18 at 09:30 KENA MÉNDEZ NP Jun 05, 2018 12:22
--- NOTE | 2018-06-05 12:52 | PN ---
Date/Time of Note Date/Time of Note DATE: 06/05/18 TIME: 12:52 Assessment/Plan VTE Prophylaxis [place] [facility] [place]: 8 [place]CD applied [place] [facility] [place] Yes SCD contraindicated: other Pharmacological prophylaxis: other Pharm contraindication: other Lines/Catheters IV [facility]ter Type (from [facility]): PICC Line Central line still needed: Yes Urinary Cath still in place: Yes Reason Cath still needed: urinary retention, pres ulcer contaminated by urine Assessment/Plan Assessment/Plan - Hypokalemia- replace K;fu BMP am -Atrial fibrillation was rapid ventricular response, s/p amiodarone drip. Rate is well controlled on p.o. amiodarone and metoprolol. - Dr. Scanlon is following in cardiology consultation. -Septic shock secondary to urinary tract infection, anterior neck soft tissue infection, and C. difficile colitis, resolving. Continue antibiotics per ID. - Dr. Doyle is following in infection disease consultation. -Acute respiratory failure requiring intubation and ventilatory support. - Dr. Lambert is following in pulmonology consultation. -S/p tracheostomy on 05/29/18. -Acute kidney injury on chronic kidney disease. Started on HD this admission. - Dr. Mckeon is following in nephrology consultation. -Anemia of chronic inflammation, stool for OB is negative, status post blood transfusion. Continue Epogen. -Metabolic acidosis, resolved. -Acute diastolic congestive heart failure. -Paroxysmal atrial fibrillation -COPD -Dysphagia with PEG. -G-tube mild malfunction, changed by GI Dr. Carolina is following in gastroenterology consultation. -Obesity- weight management Disposition: Subacute facility Further recommendations based on clinical course. Plan of care discussed with Dr. Eisenberg. Result Diagram: 06/05/18 0706 06/05/18 0706 Results 24hrs Laboratory Tests Test 06/05/18 07:06 White Blood Count 11.9 H Red Blood Count 2.73 L Hemoglobin 8.6 L Hematocrit 28.8 L Mean Corpuscular Volume 105.5 H Mean Corpuscular Hemoglobin 31.5 Mean Corpuscular Hemoglobin Concent 29.9 L Red Cell Distribution Width 20.4 H Platelet Count 471 H Mean Platelet Volume 9.3 Immature Granulocytes % 1.400 H Neutrophils % 84.1 H Lymphocytes % 8.4 L Monocytes % 5.4 Eosinophils % 0.6 Basophils % 0.1 Nucleated Red Blood Cells % 0.0 Immature Granulocytes # 0.170 H Neutrophils # 10.0 H Lymphocytes # 1.0 Monocytes # 0.6 Eosinophils # 0.1 Basophils # 0.0 Nucleated Red Blood Cells # 0.0 Sodium Level 138 Potassium Level 3.4 L Chloride Level 107 Carbon Dioxide Level 17 L Anion Gap 14 H Blood Urea Nitrogen 45 H Creatinine 1.83 H Est Glomerular Filtrat Rate mL/min Glucose Level 101 Calcium Level 9.2 Phosphorus Level 3.9 Magnesium Level 2.2 Subjective 24 Hr Interval Summary Free Text/Dictation - NAD - afebrile; WBC wnl -seems comfortable - no new events reported last night - refused oral hygiene - dw staff Subjective hx not possible: pt non-verbal Constitutional: requiring IVF, requiring O2 Psychological: nl mood/affect Exam/Review of Systems Exam Vitals Vital Signs Date Temp Pulse Resp B/P (MAP) Pulse Ox O2 O2 Flow FiO2 Time Delivery Rate 06/05/18 99 12:39 06/05/18 98.0 22 130/62 96 Mechanical 11:50 (84) Ventilator Trach Collar 06/05/18 30 11:40 Intake and Output 06/04/18 06/04/18 06/05/18 1515:00 23:00 07:00 IntakeIntake Total 100 ml 570 ml 450 ml OutputOutput Total 1050 ml 1200 ml BalanceBalance 100 ml -480 ml -750 ml Constitutional: alert, well developed, non-verbal Psych: nl mood/affect Eyes: nl lids, nl sclera ENMT: nl external ears & nose Neck: non-tender, other (trach intact) Respiratory: diminished breath sounds Cardiovascular: nl pulses, other (s1s2) Gastrointestinal: soft, non-tender, other (gt intact) Neurological: confused, other (alert/responsive) Skin: other Results Results 24hrs Laboratory Tests Test 06/05/18 07:06 White Blood Count 11.9 H Red Blood Count 2.73 L Hemoglobin 8.6 L Hematocrit 28.8 L Mean Corpuscular Volume 105.5 H Mean Corpuscular Hemoglobin 31.5 Mean Corpuscular Hemoglobin Concent 29.9 L Red Cell Distribution Width 20.4 H Platelet Count 471 H Mean Platelet Volume 9.3 Immature Granulocytes % 1.400 H Neutrophils % 84.1 H Lymphocytes % 8.4 L Monocytes % 5.4 Eosinophils % 0.6 Basophils % 0.1 Nucleated Red Blood Cells % 0.0 Immature Granulocytes # 0.170 H Neutrophils # 10.0 H Lymphocytes # 1.0 Monocytes # 0.6 Eosinophils # 0.1 Basophils # 0.0 Nucleated Red Blood Cells # 0.0 Sodium Level 138 Potassium Level 3.4 L Chloride Level 107 Carbon Dioxide Level 17 L Anion Gap 14 H Blood Urea Nitrogen 45 H Creatinine 1.83 H Est Glomerular Filtrat Rate mL/min Glucose Level 101 Calcium Level 9.2 Phosphorus Level 3.9 Magnesium Level 2.2 Medications Medication Current Medications IV Flush (NS 10 ml) 10 ml PRN IV ; Start 05/06/18 at 20:30 Ascorbic Acid (Vitamin C) 500 mg DAILY GTB Last administered on 06/05/18 08:22; Admin Dose 500 MG; Start 05/07/18 at 09:00 Albuterol/ Ipratropium (Duoneb) 3 ml Q2H RESP THERAPY PRN HHN SHORTNESS OF B REATH; Start 05/06/18 at 23:30 Zinc Sulfate (Zinc Sulfate) 220 mg DAILY GTB Last administered on 06/05/18at 08:22; Admin Dose 220 MG; Start 05/07/18 at 09:00 Ondansetron HCl (Zofran Tab) 4 mg Q6H PRN GTB NAUSEA AND/OR VOMITING Last administered on 05/31/18 16:47; Admin Dose 4 MG; Start 05/07/18 at 00:15 Multivitamins (Multivitamin) 30 ml DAILY GTB Last administered on 06/05/18 08:22; Admin Dose 30 ML; Start 05/07/18 at 09:00 Miscellaneous Information (Pending Santyl Order For Wound Care) This patient goldman... PRN PRN XX WOUND CARE; Start 05/09/18 at 17:00 Vancomycin HCl (Vancomycin Oral Syringe) 250 mg Q6 PO Last administered on 06/05/18 11:34; Admin Dose 250 MG; Start 05/12/18 at 00:00 Albuterol (Ventolin Hfa) 4 puff Q6H RESP THERAPY INH Last administered on 06/05/18 07:51; Admin Dose 4 PUFF; Start 05/12/18 at 20:00 Ipratropium [place] (Atrovent Hfa) 4 puff Q6H RESP THERAPY INH Last administered on 06/05/18 07:50; Admin Dose 4 PUFF; Start 05/12/18 at 20:00 Heparin Sodium (Porcine) (Heparin (1000 Units/ml)) 2,800 unit AFTER DIALYSIS CATHETER Last administered on 05/29/18 18:24; Admin Dose 2,800 UNIT; Start 05/16/18 at 16:30 Furosemide (Lasix) 40 mg BID DIURETICS IV Last administered on 06/05/18 05:58; Admin Dose 40 MG; Start 05/19/18 at 09:00 Epoetin Zen-epbx (RETACRIT(esrd)) 20,000 unit Tu@1700 SC Last administered on 06/02/18 17:06; Admin Dose 20,000 UNIT; Start 05/19/18 at 17:00 Spironolactone (Aldactone) 50 mg DAILY GTB Last administered on 06/05/18 08: 22; Admin Dose 50 MG; Start 05/21/18 at 09:00 Metolazone (Zaroxolyn) 5 mg DAILY@0600 PO Last administered on 05/28/18 05:48; Admin Dose 5 MG; Start 05/22/18 at 09:00; Status Hold Famotidine (Pepcid) 20 mg DAILY PEG Last administered on 06/05/18 08:22; Admin Dose 20 MG; Start 05/23/18 at 09:00 Morphine Sulfate (morphine) 6 mg Q4H PRN PEG SEVERE PAIN LEVEL 7-10 Last administered on 06/05/18 11:35; Admin Dose 6 MG; Start 05/22/18 at 17:00 Albumin Human 100 ml @ 100 mls/hr DURING DIALYSIS PRN IV hypotension on hd Last administered on 05/29/18 14:49; Admin Dose 100 MLS/HR; Start 05/27/18 at 07:30 Cholestyramine Resin (Questran Light) 4 gm 0600,1200,1800,2300 PO Last administered on 06/05/18 11:34; Admin Dose 4 GM; Start 05/27/18 at 18:00 Lorazepam (Ativan) 0.5 mg Q4H PRN IV ANXIETY; Start 05/30/18 at 12:00 Metronidazole 100 ml @ 100 mls/hr Q8 IVPB Last administered on 06/05/18 05:5 8; Admin Dose 100 MLS/HR; Start 05/30/18 at 22:00 Acetaminophen (Tylenol Tab) 650 mg Q4H PRN PO MILD PAIN(1-3)OR ELEVATED TEMP Last administered on 06/04/18 20:40; Admin Dose 650 MG; Start 05/31/18 at 13:00 Metoclopramide HCl (Reglan) 5 mg Q6 IV Last administered on 06/05/18 11:34; Admin Dose 5 MG; Start 05/31/18 at 13:00 Collagenase (Santyl) 1 applic DAILY TOP Last administered on 06/05/18 08:22; Admin Dose 1 APPLIC; Start 06/01/18 at 09:00 Amiodarone HCl (Cordarone) 200 mg BID PO Last administered on 06/05/18 08:22; Admin Dose 200 MG; Start 06/01/18 at 21:00 Metoprolol Tartrate (Lopressor) 50 mg Q8 GTB Last administered on 06/05/18 05:59; Admin Dose 50 MG; Start 06/01/18 at 14:30 Clonidine (Catapres) 0.1 mg Q6H PRN PO ELEVATED BLOOD PRESSURE; Start 06/03/18 at 03:30 Citric Acid/ Sodium Citrate (Bicitra) 30 ml BID PO Last administered on 06/05/18 09:30; Admin Dose 30 ML; Start 06/05/18 at 09:30 KERON MORAN Jun 05, 2018 12:52
--- NOTE | 2018-06-05 13:56 | CONS ---
Consult Date/Type/Reason Admit Date/Time May 06, 2018 at 17:38 Initial Consult Date 05/10/18 Type of Consult Pulmonary Requesting Provider: ROLAND GIRON MD Date/Time of Note DATE: 06/05/18 TIME: 13:55 Subjective Patient stable no new events. Objective Vital Signs Date Temp Pulse Resp B/P (MAP) Pulse Ox O2 O2 Flow FiO2 Time Delivery Rate 06/05/18 99 12:39 06/05/18 98.0 22 130/62 96 Mechanical 11:50 (84) Ventilator Trach Collar 06/05/18 30 11:40 Intake and Output 06/04/18 06/04/18 06/05/18 1515:00 23:00 07:00 IntakeIntake Total 100 ml 670 ml 550 ml OutputOutput Total 1050 ml 1200 ml BalanceBalance 100 ml -380 ml -650 ml Exam GENERAL: Elderly appearing lady continues mechanical ventilation via tracheostomy VITAL SIGNS: per chart NECK: Supple. No JVD or lymphadenopathy. CARDIAC EXAM: S1, S2. No added sounds or murmurs. CHEST: Diminished air entry bilaterally ABDOMEN: Soft, nontender. No guarding or rebound. EXTREMITIES: No cyanosis, clubbing edema +1 NEUROLOGIC: Generalized weakness. Vent Setting Ventilator Support Mode: AC, VC plus Fraction of Inspired Oxygen pe: 30 Positive End Expiratory Pressu: 5.0 Results/Medications Result Diagram: 06/05/18 0706 06/05/18 0706 Results 24 hrs Laboratory Tests Test 06/05/18 07:06 White Blood Count 11.9 H Red Blood Count 2.73 L Hemoglobin 8.6 L Hematocrit 28.8 L Mean Corpuscular Volume 105.5 H Mean Corpuscular Hemoglobin 31.5 Mean Corpuscular Hemoglobin Concent 29.9 L Red Cell Distribution Width 20.4 H Platelet Count 471 H Mean Platelet Volume 9.3 Immature Granulocytes % 1.400 H Neutrophils % 84.1 H Lymphocytes % 8.4 L Monocytes % 5.4 Eosinophils % 0.6 Basophils % 0.1 Nucleated Red Blood Cells % 0.0 Immature Granulocytes # 0.170 H Neutrophils # 10.0 H Lymphocytes # 1.0 Monocytes # 0.6 Eosinophils # 0.1 Basophils # 0.0 Nucleated Red Blood Cells # 0.0 Sodium Level 138 Potassium Level 3.4 L Chloride Level 107 Carbon Dioxide Level 17 L Anion Gap 14 H Blood Urea Nitrogen 45 H Creatinine 1.83 H Est Glomerular Filtrat Rate mL/min Glucose Level 101 Calcium Level 9.2 Phosphorus Level 3.9 Magnesium Level 2.2 Medications Current Medications IV Flush (NS 10 ml) 10 ml PRN IV ; Start 05/06/18 at 20:30 Ascorbic Acid (Vitamin C) 500 mg DAILY GTB Last administered on 06/05/18 08:22; Admin Dose 500 MG; Start 05/07/18 at 09:00 Albuterol/ Ipratropium (Duoneb) 3 ml Q2H RESP THERAPY PRN HHN SHORTNESS OF BREATH; Start 05/06/18 at 23:30 Zinc Sulfate (Zinc Sulfate) 220 mg DAILY GTB Last administered on 06/05/18 08:22; Admin Dose 220 MG; Start 05/07/18 at 09:00 Ondansetron HCl (Zofran Tab) 4 mg Q6H PRN GTB NAUSEA AND/OR VOMITING Last administered on 05/31/18 16:47; Admin Dose 4 MG; Start 05/07/18 at 00:15 Multivitamins (Multivitamin) 30 ml DAILY GTB Last administered on 06/05/18 08:22; Admin Dose 30 ML; Start 05/07/18 at 09:00 Miscellaneous Information (Pending [facility] Order For Wound Care) This patient goldman... PRN PRN XX WOUND CARE; Start 05/09/18 at 17:00 Vancomycin HCl (Vancomycin Oral Syringe) 250 mg Q6 PO Last administered on 06/05/18 11:34; Admin Dose 250 MG; Start 05/12/18 at 00:00 Albuterol (Ventolin Hfa) 4 puff Q6H RESP THERAPY INH Last administered on 06/05/18 07:51; Admin Dose 4 PUFF; Start 05/12/18 at 20:00 Ipratropium [place] (Atrovent Hfa) 4 puff Q6H RESP THERAPY INH Last administered on 06/05/18 07:50; Admin Dose 4 PUFF; Start 05/12/18 at 20:00 Heparin Sodium (Porcine) (Heparin (1000 Units/ml)) 2,800 unit AFTER DIALYSIS CATHETER Last administered on 05/29/18 18:24; Admin Dose 2,800 UNIT; Start 05/16/18 at 16:30 Furosemide (Lasix) 40 mg BID DIURETICS IV Last administered on 06/05/18 05:58; Admin Dose 40 MG; Start 05/19/18 at 09:00 Epoetin Zen-epbx (RETACRIT(esrd)) 20,000 unit Tu@1700 SC Last administered on 06/02/18 17:06; Admin Dose 20,000 UNIT; Start 05/19/18 at 17:00 Spironolactone (Aldactone) 50 mg DAILY GTB Last administered on 06/05/18 08:22; Admin Dose 50 MG; Start 05/21/18 at 09:00 Metolazone (Zaroxolyn) 5 mg DAILY@0600 PO Last administered on 05/28/18 05:48; Admin Dose 5 MG; Start 05/22/18 at 09:00; Status Hold Famotidine (Pepcid) 20 mg DAILY PEG Last administered on 06/05/18 08:22; Admin Dose 20 MG; Start 05/23/18 at 09:00 Morphine Sulfate (morphine) 6 mg Q4H PRN PEG SEVERE PAIN LEVEL 7-10 Last administered on 06/05/18 11:35; Admin Dose 6 MG; Start 05/22/18 at 17:00 Albumin Human 100 ml @ 100 mls/hr DURING DIALYSIS PRN IV hypotension on hd Last administered on 05/29/18 14:49; Admin Dose 100 MLS/HR; Start 05/27/18 at 07:30 Cholestyramine Resin (Questran Light) 4 gm 0600,1200,1800,2300 PO Last administered on 06/05/18 11:34; Admin Dose 4 GM; Start 05/27/18 at 18:00 Lorazepam (Ativan) 0.5 mg Q4H PRN IV ANXIETY; Start 05/30/18 at 12:00 Metronidazole 100 ml @ 100 mls/hr Q8 IVPB Last administered on 06/05/18 05:58; Admin Dose 100 MLS/HR; Start 05/30/18 at 22:00 Acetaminophen (Tylenol Tab) 650 mg Q4H PRN PO MILD PAIN(1-3)OR ELEVATED TEMP Last administered on 06/04/18 20:40; Admin Dose 650 MG; Start 05/31/18 at 13:00 Metoclopramide HCl (Reglan) 5 mg Q6 IV Last administered on 06/05/18at 11:34; Admin Dose 5 MG; Start 05/31/18 at 13:00 Collagenase (Santyl) 1 applic DAILY TOP Last administered on 06/05/18at 08:22; Admin Dose 1 APPLIC; Start 06/01/18 at 09:00 Amiodarone HCl (Cordarone) 200 mg BID PO Last administered on 06/05/18at 08:22; Admin Dose 200 MG; Start 06/01/18 at 21:00 Metoprolol Tartrate (Lopressor) 50 mg Q8 GTB Last administered on 06/05/18at 0 5:59; Admin Dose 50 MG; Start 06/01/18 at 14:30 Clonidine (Catapres) 0.1 mg Q6H PRN PO ELEVATED BLOOD PRESSURE; Start 06/03/18 at 03:30 Citric Acid/ Sodium Citrate (Bicitra) 30 ml BID PO Last administered on 06/05/18at 09:30; Admin Dose 30 ML; Start 06/05/18 at 09:30 Assessment/Plan Hospital Course (Demo Recall) Assessment 1. Hypoxemic respiratory failure failed multiple weaning trials 2. History of pulmonary fibrosis 3. Anemia questionable GI bleed 4. History of renal failure on hemodialysis 5. Decubitus ulcers Plan 1. Continue mechanical ventilation via tracheostomy. 2. Continue tube feeding 3. Continue wound care DC to alf facility? LAURA JENKINS MD, [facility] Jun 05, 2018 13:56
[2018-06-05] MEDS: [UNRECOGNIZED DRUG - REMARK] XX SCH (21:00)
[2018-06-06] VITALS (22 sets, daily range): BP systolic 111–135; BP diastolic 64–80; PULSE 87–117; RESP 18–27
[2018-06-06] MEDS: ALBUTEROL HFA 8 GM INHALER INH SCH ×4 (01:11→20:05)
[2018-06-06] MEDS: IPRATROPIUM (HFA) 12.9 GM INHALER INH SCH ×4 (01:11→20:05)
[2018-06-06] MEDS: VANCOMYCIN HCL 250 MG/5ML POSYG PO SCH ×3 (04:43→21:20)
[2018-06-06] MEDS: METOCLOPRAMIDE 10 MG INJ IV SCH ×3 (04:44→17:27)
[2018-06-06] MEDS: CHOLESTYRAMINE (LIGHT) 4 GM PACKET PO SCH ×4 (04:46→23:00)
[2018-06-06] MEDS: METOPROLOL 50 MG TAB GTB SCH ×3 (04:50→21:20)
[2018-06-06] MEDS: FUROSEMIDE 40 MG INJ IV SCH ×2 (04:51→17:27)
[2018-06-06] MEDS: [UNRECOGNIZED DRUG - REMARK] XX SCH ×3 (05:00→21:00)
[2018-06-06] MEDS: BALSAM PERU/CASTOR OIL 60 GM TUBE TOP SCH ×2 (09:40→21:10)
[2018-06-06] MEDS: CITRIC ACID/NA CITRATE 30 ML CUP PO SCH ×3 (09:41→21:08)
[2018-06-06] MEDS: MULTIVITAMINS 30 ML CUP GTB SCH (09:41)
[2018-06-06] MEDS: COLLAGENASE 5 GM (UD JAR) TOP SCH (09:41)
[2018-06-06] MEDS: ZINC SULFATE 220 MG CAP GTB SCH (09:41)
[2018-06-06] MEDS: FAMOTIDINE 20 MG TAB PEG SCH (09:42)
[2018-06-06] MEDS: ASCORBIC ACID 500 MG TAB GTB SCH (09:42)
[2018-06-06] MEDS: SPIRONOLACTONE 25 MG TAB GTB SCH (09:42)
[2018-06-06] MEDS: AMIODARONE 200 MG TAB PO SCH ×2 (09:42→21:09)
--- NOTE | 2018-06-06 09:53 | CONS ---
Assessment/Plan Assessment/Plan Assessment/Plan (Daily) Ventilator setting; AC of 20, tidal volume 500, PEEP of 5, 40% FiO2. Assessment and recommendations; 1. Patient with history of chronic respiratory failure status post decannulation about 2 months ago then readmitted for severe bilateral pneumonia requiring redo tracheostomy because of failure to be weaned from ventilator despite multiple attempts. 2. Acute renal failure, now requiring hemodialysis. 3. Chronic anemia. 4. Generalized deconditioning due to critical illness neuropathy/myopathy. 5. History of cardiac arrhythmia. 6. C. difficile colitis. 7. History of hypertension. Continue current supportive care. Prognosis is poor. Consultation Date/Type/Reason Admit Date/Time May 06, 2018 at 17:38 Initial Consult Date 05/10/18 Type of Consult Pulmonary/critical care Requesting Provider: ROLAND GIRON MD Date/Time of Note DATE: 06/06/18 TIME: 09:50 24 HR Interval Summary Free Text/Dictation Patient's condition is stable. Has remained hemodynamically stable. General exam; elderly woman, on ventilator via tracheostomy, currently no distress. Exam/Review of Systems Exam Vitals Vital Signs Date Temp Pulse Resp B/P (MAP) Pulse Ox O2 O2 Flow FiO2 Time Delivery Rate 06/06/18 105 08:01 06/06/18 99.5 18 114/73 98 07:54 (87) 06/06/18 30 07:15 06/05/18 Mechanical 16:14 Ventilator Trach Collar Intake and Output 06/05/18 06/05/18 06/06/18 1515:00 23:00 07:00 IntakeIntake Total 570 ml 495 ml OutputOutput Total 1000 ml 800 ml BalanceBalance -430 ml -305 ml Exam H EENT exam; supple neck, positive JVD. No lymphadenopathy. Midline trachea. No thyromegaly. Tracheostomy in place. Patient has fair dentition. No neck masses. Chest exam; diminished breath sounds bilaterally. S1-S2 audible, no murmurs. Regular rhythm. Abdomen exam; soft, no organomegaly. G-tube in place. Bowel sounds audible. Extremity exam; trace edema. Patient does have patchy ecchymosis. DENTAL NURSE exam; patient awake but appearing lethargic. Results Result Diagram: 06/05/1870506/05/18705 Medications Medication Current Medications IV Flush (NS 10 ml) 10 ml PRN IV ; Start 05/06/18 at 20:30 Ascorbic Acid (Vitamin C) 500 mg DAILY GTB Last administered on 06/06/18 09:42; Admin Dose 500 MG; Start 05/07/18 at 09:00 Albuterol/ Ipratropium (Duoneb) 3 ml Q2H RESP THERAPY PRN HHN SHORTNESS OF BREATH; Start 05/06/18 at 23:30 Zinc Sulfate (Zinc Sulfate) 220 mg DAILY GTB Last administered on 06/06/18 09:41; Admin Dose 220 MG; Start 05/07/18 at 09:00 Ondansetron HCl (Zofran Tab) 4 mg Q6H PRN GTB NAUSEA AND/OR VOMITING Last administered on 05/31/18 16:47; Admin Dose 4 MG; Start 05/07/18 at 00:15 Multivitamins (Multivitamin) 30 ml DAILY GTB Last administered on 06/06/18 09:41; Admin Dose 30 ML; Start 05/07/18 at 09:00 Miscellaneous Information (Pending [facility] Order For Wound Care) This patient goldman... PRN PRN XX WOUND CARE; Start 05/09/18 at 17:00 Vancomycin HCl (Vancomycin Oral Syringe) 250 mg Q6 PO Last administered on 06/06/18 04:43; Admin Dose 250 MG; Start 05/12/18 at 00:00 Albuterol (Ventolin Hfa) 4 puff Q6H RESP THERAPY INH Last administered on 06/06/18 07:25; Admin Dose 4 PUFF; Start 05/12/18 at 20:00 Ipratropium [place] (Atrovent Hfa) 4 puff Q6H RESP THERAPY INH Last administered on 06/06/18 07:25; Admin Dose 4 PUFF; Start 05/12/18 at 20:00 Heparin Sodium (Porcine) (Heparin (1000 Units/ml)) 2,800 unit AFTER DIALYSIS CATHETER Last administered on 05/29/18 18:24; Admin Dose 2,800 UNIT; Start 05/16/18 at 16:30 Furosemide (Lasix) 40 mg BID DIURETICS IV Last administered on 06/06/18 04:51; Admin Dose 40 MG; Start 05/19/18 at 09:00 Epoetin Zen-epbx (RETACRIT(esrd)) 20,000 unit Tu@1700 SC Last administered on 06/02/18 17:06; Admin Dose 20,000 UNIT; Start 05/19/18 at 17:00 Spironolactone (Aldactone) 50 mg DAILY GTB Last administered on 06/06/18 09:42; Admin Dose 50 MG; Start 05/21/18 at 09:00 Metolazone (Zaroxolyn) 5 mg DAILY@0600 PO Last administered on 05/28/18 05:48; Admin Dose 5 MG; Start 05/22/18 at 09:00; Status Hold Famotidine (Pepcid) 20 mg DAILY PEG Last administered on 06/06/18 09:42; Admin Dose 20 MG; Start 05/23/18 at 09:00 Morphine Sulfate (morphine) 6 mg Q4H PRN PEG SEVERE PAIN LEVEL 7-10 Last administered on 06/05/18 11:35; Admin Dose 6 MG; Start 05/22/18 at 17:00 Albumin Human 100 ml @ 100 mls/hr DURING DIALYSIS PRN IV hypotension on hd Last administered on 05/29/18 14:49; Admin Dose 100 MLS/HR; Start 05/27/18 at 07:30 Cholestyramine Resin (Questran Light) 4 gm 0600,1200,1800,2300 PO Last administered on 06/06/18 04:46; Admin Dose 4 GM; Start 05/27/18 at 18:00 Lorazepam (Ativan) 0.5 mg Q4H PRN IV ANXIETY; Start 05/30/18 at 12:00 Acetaminophen (Tylenol Tab) 650 mg Q4H PRN PO MILD PAIN(1-3)OR ELEVATED TEMP Last administered on 06/04/18 20:40; Admin Dose 650 MG; Start 05/31/18 at 13:00 Metoclopramide HCl (Reglan) 5 mg Q6 IV Last administered on 06/06/18 04:44; Admin Dose 5 MG; Start 05/31/18 at 13:00 Collagenase (Santyl) 1 applic DAILY TOP Last administered on 06/06/18 09:41; Admin Dose 1 APPLIC; Start 06/01/18 at 09:00 Amiodarone HCl (Cordarone) 200 mg BID PO Last administered on 06/06/18 09:42; Admin Dose 200 MG; Start 06/01/18 at 21:00 Metoprolol Tartrate (Lopressor) 50 mg Q8 GTB Last administered on 06/06/18 04: 50; Admin Dose 50 MG; Start 06/01/18 at 14:30 Clonidine (Catapres) 0.1 mg Q6H PRN PO ELEVATED BLOOD PRESSURE; Start 06/03/18 at 03:30 Citric Acid/ Sodium Citrate (Bicitra) 30 ml BID PO Last administered on 06/06/18 09:41; Admin Dose 30 ML; Start 06/05/18 at 09:30 Miscellaneous Information (*Order Clarification Bulletin) MEDICATION REQUIRES CLARIFICATI... Q8H XX ; Start 06/05/18 at 21:00 ELOISA LAURA Jun 06, 2018 09:53
--- NOTE | 2018-06-06 12:20 | CONS ---
Assessment/Plan Assessment/Plan Assessment/Plan (Daily) 1. Nonoliguric acute kidney injury on top of chronic kidney disease with previous baseline creatinine between 2 to 2.5 mg/dL. Etiology of acute kidney injury is secondary to acute tubular necrosis. The patient is status post hemodialysis. The patient's Juan catheter was removed. The patient has shown adequate renal recovery and is now at new baseline.. Continue to monitor. 2. Volume overload secondary to acute kidney injury, congestive heart failure, clinically improving. Continue diuretic regimen. 3. Hypokalemia. We will replete with potassium chloride. 4. Hypernatremia. The patient has free water flushes were discontinued. Continue to monitor. 5. Metabolic acidosis. increase bicitra 6. Anemia. Continue to monitor hemoglobin and hematocrit levels. Continue Epogen. 7. Mineral bone disorder, monitor calcium and phosphorus levels. 8. Ventilatory dependent respiratory failure. Vent settings and ABG was reviewed. Continue to monitor. 9. Sepsis, status post shock. The patient is completing antibiotic course. 10. Dysphagia. Continue tube feeding. 11. Acute encephalopathy, etiology is toxic metabolic. 12. Lower extremity wounds. Continue wound care. Consultation Date/Type/Reason Admit Date/Time May 06, 2018 at 17:38 Initial Consult Date 05/10/18 Requesting Provider: ROLAND GIRON MD Date/Time of Note DATE: 06/06/18 TIME: 12:18 24 HR Interval Summary Free Text/Dictation tolerating diuretics overnight events reviewed kari haynes gen nad cv rrr pulm ctab abd soft, nd, nt +bs ext: no edema Exam/Review of Systems Exam Vitals Vital Signs Date Temp Pulse Resp B/P (MAP) Pulse Ox O2 O2 Flow FiO2 Time Delivery Rate 06/06/18 98.7 111 19 113/69 98 11:17 (84) 06/06/18 30 11:00 06/05/18 Mechanical 16:14 Ventilator Trach Collar Intake and Output 06/05/18 06/05/18 06/06/18 1515:00 23:00 07:00 IntakeIntake Total 570 ml 495 ml OutputOutput Total 1000 ml 800 ml BalanceBalance -430 ml -305 ml Results Result Diagram: 06/05/18 0706 06/05/18 0706 Medications Medication Current Medications IV Flush (NS 10 ml) 10 ml PRN IV ; Start 05/06/18 at 20:30 Ascorbic Acid (Vitamin C) 500 mg DAILY GTB Last administered on 06/06/18 09:42; Admin Dose 500 MG; Start 05/07/18 at 09:00 Albuterol/ Ipratropium (Duoneb) 3 ml Q2H RESP THERAPY PRN HHN SHORTNESS OF BREATH; Start 05/06/18 at 23:30 Zinc Sulfate (Zinc Sulfate) 220 mg DAILY GTB Last administered on 06/06/18 09:41; Admin Dose 220 MG; Start 05/07/18 at 09:00 Ondansetron HCl (Zofran Tab) 4 mg Q6H PRN GTB NAUSEA AND/OR VOMITING Last administered on 05/31/18 16:47; Admin Dose 4 MG; Start 05/07/18 at 00:15 Multivitamins (Multivitamin) 30 ml DAILY GTB Last administered on 06/06/18 09:41; Admin Dose 30 ML; Start 05/07/18 at 09:00 Miscellaneous Information (Pending [facility] Order For Wound Care) This patient goldman... PRN PRN XX WOUND CARE; Start 05/09/18 at 17:00 Vancomycin HCl (Vancomycin Oral Syringe) 250 mg Q6 PO Last administered on 06/06/18 04:43; Admin Dose 250 MG; Start 05/12/18 at 00:00 Albuterol (Ventolin Hfa) 4 puff Q6H RESP THERAPY INH Last administered on 06/06/18 07:25; Admin Dose 4 PUFF; Start 05/12/18 at 20:00 Ipratropium [place] (Atrovent Hfa) 4 puff Q6H RESP THERAPY INH Last administered on 06/06/18 07:25; Admin Dose 4 PUFF; Start 05/12/18 at 20:00 Heparin Sodium (Porcine) (Heparin (1000 Units/ml)) 2,800 unit AFTER DIALYSIS CATHETER Last administered on 05/29/18 18:24; Admin Dose 2,800 UNIT; Start 05/16/18 at 16:30 Furosemide (Lasix) 40 mg BID DIURETICS IV Last administered on 06/06/18 04:51; Admin Dose 40 MG; Start 05/19/18 at 09:00 Epoetin Zen-epbx (RETACRIT(esrd)) 20,000 unit Tu@1700 SC Last administered on 06/02/18 17:06; Admin Dose 20,000 UNIT; Start 05/19/18 at 17:00 Spironolactone (Aldactone) 50 mg DAILY GTB Last administered on 06/06/18 09:42; Admin Dose 50 MG; Start 05/21/18 at 09:00 Metolazone (Zaroxolyn) 5 mg DAILY@0600 PO Last administered on 05/28/18 05:48; Admin Dose 5 MG; Start 05/22/18 at 09:00; Status Hold Famotidine (Pepcid) 20 mg DAILY PEG Last administered on 06/06/18 09:42; Admin Dose 20 MG; Start 05/23/18 at 09:00 Morphine Sulfate (morphine) 6 mg Q4H PRN PEG SEVERE PAIN LEVEL 7-10 Last administered on 06/05/18 11:35; Admin Dose 6 MG; Start 05/22/18 at 17:00 Albumin Human 100 ml @ 100 mls/hr DURING DIALYSIS PRN IV hypotension on hd Last administered on 05/29/18 14:49; Admin Dose 100 MLS/HR; Start 05/27/18 at 07:30 Cholestyramine Resin (Questran Light) 4 gm 0600,1200,1800,2300 PO Last admin istered on 06/06/18 04:46; Admin Dose 4 GM; Start 05/27/18 at 18:00 Lorazepam (Ativan) 0.5 mg Q4H PRN IV ANXIETY; Start 05/30/18 at 12:00 Acetaminophen (Tylenol Tab) 650 mg Q4H PRN PO MILD PAIN(1-3)OR ELEVATED TEMP Last administered on 06/04/18 20:40; Admin Dose 650 MG; Start 05/31/18 at 13:00 Metoclopramide HCl (Reglan) 5 mg Q6 IV Last administered on 06/06/18 04:44; Admin Dose 5 MG; Start 05/31/18 at 13:00 Collagenase (Santyl) 1 applic DAILY TOP Last administered on 06/06/18 09:41; Admin Dose 1 APPLIC; Start 06/01/18 at 09:00 Amiodarone HCl (Cordarone) 200 mg BID PO Last administered on 06/06/18 09:42; Admin Dose 200 MG; Start 06/01/18 at 21:00 Metoprolol Tartrate (Lopressor) 50 mg Q8 GTB Last administered on 06/06/18at 04:50; Admin Dose 50 MG; Start 06/01/18 at 14:30 Clonidine (Catapres) 0.1 mg Q6H PRN PO ELEVATED BLOOD PRESSURE; Start 06/03/18 at 03:30 Citric Acid/ Sodium Citrate (Bicitra) 30 ml BID PO Last administered on 06/06/18at 09:41; Admin Dose 30 ML; Start 06/05/18 at 09:30 Miscellaneous Information (*Order Clarification Bulletin) MEDICATION REQUIRES CLARIFICATI... Q8H XX ; Start 06/05/18 at 21:00 ALIZE FLORES MD Jun 06, 2018 12:20
--- NOTE | 2018-06-06 12:32 | PN ---
Date/Time of Note Date/Time of Note DATE: 06/06/18 TIME: 12:32 Assessment/Plan VTE Prophylaxis Risk score (from Ns)>0 risk: 10 SCD applied (from Ns): Yes Pharmacological prophylaxis: LMWH Lines/Catheters IV Catheter Type (from [facility]): PICC Line Central line still needed: Yes Urinary Cath still in place: Yes Reason Cath still needed: skin wounds contaminated by urine Assessment/Plan Hospital Course -Atrial fibrillation was rapid ventricular response, s/p amiodarone drip. Rate is well controlled on p.o. amiodarone and metoprolol. Dr. Scanlon is following in cardiology consultation. -Septic shock secondary to urinary tract infection, anterior neck soft tissue infection, and C. difficile colitis, resolving. Continue antibiotics per ID. Dr. Doyle is following in infection disease consultation. -Acute respiratory failure requiring intubation and ventilatory support. Dr. Lambert is following in pulmonology consultation. -S/p tracheostomy on 05/29/18. -Acute kidney injury on chronic kidney disease. Started on HD this admission. Dr. Mckeon is following in nephrology consultation. -Anemia of chronic inflammation, stool for OB is negative, status post blood transfusion. Continue Epogen. -Metabolic acidosis, resolved. -Acute diastolic congestive heart failure. -Paroxysmal atrial fibrillation -COPD -Dysphagia with PEG. -G-tube mild malfunction, changed by GI Dr. Carolina is following in gastroenterology consultation. -Obesity Result Diagram: 06/05/18 0706 06/05/18 0706 Subjective 24 Hr Interval Summary Free Text/Dictation Patient is sedated, on vent via trach Exam/Review of Systems Exam Vitals Vital Signs Date Temp Pulse Resp B/P (MAP) Pulse Ox O2 O2 Flow FiO2 Time Delivery Rate 06/06/18 98.7 111 19 113/69 98 11:17 (84) 06/06/18 30 11:00 06/05/18 Mechanical 16:14 Ventilator Trach Collar Intake and Output 06/05/18 06/05/18 06/06/18 1515:00 23:00 07:00 IntakeIntake Total 570 ml 495 ml OutputOutput Total 1000 ml 800 ml BalanceBalance -430 ml -305 ml Constitutional: well developed Head: normocephalic, atraumatic Neck: supple Respiratory: diminished breath sounds Cardiovascular: regular rate and rhythm Gastrointestinal: soft, non-tender Extremities: normal pulses Medications Medication Current Medications IV Flush (NS 10 ml) 10 ml PRN IV ; Start 05/06/18 at 20:30 Ascorbic Acid (Vitamin C) 500 mg DAILY GTB Last administered on 06/06/18 09:42; Admin Dose 500 MG; Start 05/07/18 at 09:00 Albuterol/ Ipratropium (Duoneb) 3 ml Q2H RESP THERAPY PRN HHN SHORTNESS OF BREATH; Start 05/06/18 at 23:30 Zinc Sulfate (Zinc Sulfate) 220 mg DAILY GTB Last administered on 06/06/18 09:41; Admin Dose 220 MG; Start 05/07/18 at 09:00 Ondansetron HCl (Zofran Tab) 4 mg Q6H PRN GTB NAUSEA AND/OR VOMITING Last admin istered on 05/31/18 16:47; Admin Dose 4 MG; Start 05/07/18 at 00:15 Multivitamins (Multivitamin) 30 ml DAILY GTB Last administered on 06/06/18 09:41; Admin Dose 30 ML; Start 05/07/18 at 09:00 Miscellaneous Information ([facility]) This patient goldman... PRN PRN XX WOUND CARE; Start 05/09/18 at 17:00 Vancomycin HCl (Vancomycin Oral Syringe) 250 mg Q6 PO Last administered on 06/06/18 04:43; Admin Dose 250 MG; Start 05/12/18 at 00:00 Albuterol (Ventolin Hfa) 4 puff Q6H RESP THERAPY INH Last administered on 06/06/18 07:25; Admin Dose 4 PUFF; Start 05/12/18 at 20:00 Ipratropium [place] (Atrovent Hfa) 4 puff Q6H RESP THERAPY INH Last administered on 06/06/18 07:25; Admin Dose 4 PUFF; Start 05/12/18 at 20:00 Heparin Sodium (Porcine) (Heparin (1000 Units/ml)) 2,800 unit AFTER DIALYSIS CATHETER Last administered on 05/29/18 18:24; Admin Dose 2,800 UNIT; Start 05/16/18 at 16:30 Furosemide (Lasix) 40 mg BID DIURETICS IV Last administered on 06/06/18 04:51; Admin Dose 40 MG; Start 05/19/18 at 09:00 Epoetin Zen-epbx (RETACRIT(esrd)) 20,000 unit Tu@1700 SC Last administered on 06/02/18 17:06; Admin Dose 20,000 UNIT; Start 05/19/18 at 17:00 Spironolactone (Aldactone) 50 mg DAILY GTB Last administered on 06/06/18 09:42; Admin Dose 50 MG; Start 05/21/18 at 09:00 Metolazone (Zaroxolyn) 5 mg DAILY@0600 PO Last administered on 05/28/18 05:48; Admin Dose 5 MG; Start 05/22/18 at 09:00; Status Hold Famotidine (Pepcid) 20 mg DAILY PEG Last administered on 06/06/18 09:42; Admin Dose 20 MG; Start 05/23/18 at 09:00 Morphine Sulfate (morphine) 6 mg Q4H PRN PEG SEVERE PAIN LEVEL 7-10 Last administered on 06/05/18 11:35; Admin Dose 6 MG; Start 05/22/18 at 17:00 Albumin Human 100 ml @ 100 mls/hr DURING DIALYSIS PRN IV hypotension on hd Last administered on 05/29/18 14:49; Admin Dose 100 MLS/HR; Start 05/27/18 at 07:30 Cholestyramine Resin (Questran Light) 4 gm 0600,1200,1800,2300 PO Last administered on 06/06/18 04:46; Admin Dose 4 GM; Start 05/27/18 at 18:00 Lorazepam (Ativan) 0.5 mg Q4H PRN IV ANXIETY; Start 05/30/18 at 12:00 Acetaminophen (Tylenol Tab) 650 mg Q4H PRN PO MILD PAIN(1-3)OR ELEVATED TEMP Last administered on 06/04/18 20:40; Admin Dose 650 MG; Start 05/31/18 at 13:00 Metoclopramide HCl (Reglan) 5 mg Q6 IV Last administered on 06/06/18 04:44; Admin Dose 5 MG; Start 05/31/18 at 13:00 Collagenase (Santyl) 1 applic DAILY TOP Last administered on 06/06/18 09:41; Admin Dose 1 APPLIC; Start 06/01/18 at 09:00 Amiodarone HCl (Cordarone) 200 mg BID PO Last administered on 06/06/18at 09:42; Admin Dose 200 MG; Start 06/01/18 at 21:00 Metoprolol Tartrate (Lopressor) 50 mg Q8 GTB Last administered on 06/06/18at 04:50; Admin Dose 50 MG; Start 06/01/18 at 14:30 Clonidine (Catapres) 0.1 mg Q6H PRN PO ELEVATED BLOOD PRESSURE; Start 06/03/18 at 03:30 Miscellaneous Information (*Order Clarification Bulletin) MEDICATION REQUIRES CLARIFICATI... Q8H XX ; Start 06/05/18 at 21:00 Citric Acid/ Sodium Citrate (Bicitra) 30 ml TID PO ; Start 06/06/18 at 13:00; Status UNV STEPHANIE BAL Jun 06, 2018 12:32
--- NOTE | 2018-06-06 14:19 | CONS ---
[facility] HCIS Consult Follow-up Patient Name: Zuly Mcwilliams Unit Number: [id number] Date of : 1945 Patient Status: Admitted Inpatient Attending Doctor: Roland Giron MD Edit: CELESTINE SANCHEZ M.D. 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 colonization of the airway by pseudomonas and ESBL+klebsiella - h/o possible, recurrent HCAP due to pseudomonas and ESBL+klebsiella - h/o recurrent HCAP due to MRSA and Enterobacter (culture of tracheal aspirate on 07/16/[address] [facility]) . Pt took vancomycin and ceftazidime - h/o decannulation prior to admission - h/o tracheostomy on 06/11/2017 - h/o SIRS from UGIB in 2018 - h/o thoracentesis on 07/18/2017, transudative (protein <2, LDH 279) - h/o bleeding from the trach site in 2018 - h/o septic shock due to pneumonia, ARDS, bacteremia, fungemia in 2018 - h/o ARDS in 2018 - h/o smoking - COPD - h/o ILD per medical record - h/o PAF, improved # GI - C diff colitis, diagnosed on 05/11/2018 - h/o intermittent diarrhea, Pt had multiple negative C. diff tests at [facility] at OSH in the past; none was positive until 05/11/2018 - dysphagia - h/o PEG placement 06/13/2018 - protein calorie malnutrition - h/o coffee ground emesis/UGIB on 12/23/2017 due to deep ulceration of distal esophagus and gastritis on EGD 12/26/2017. No e/o H. pylori - h/o possible appendicitis on CT on 11/22/2017, Pt took ertapenem (11/24/2017- 12/01/2017) - h/o extensive adhesions lower abdominal and pelvis between small bowel to each other and to colon and to abdominal wall, anterior pelvic wall chronic abscess secondary to probably an old perforated diverticulitis, torsion of small bowel around these dense adhesion causing multiple obstructive points - h/o laparoscopic exploration and extensive lysis of adhesions and drainage of anterior pelvic wall abscess 09/16/2017. Cultures were negative, no e/o malig natalie. Pt took pip/tazo (09/16/2017-09/26/2017) - h/o EGD and exchange of PEG on 09/01/2017 - h/o partial obstruction mid jejunum in L anterior central pelvis with suggestion of a 3 cm soft tissue mass on CT 08/28/2017 - h/o internal stomal deep ulcer behind the internal bumper, gastritis and esophagitis, Rodriguez's cannot be ruled out, per EGD with biopsy 07/23/2017 - h/o GIB s/p flex sig showed polyp; stool OB negative on 06/29/17 - h/o stool OB positive status - h/o SBO and ileus due to pain meds - h/o mildly elevated CEA # renal/ - anasarca - started on HD on 05/15/2018, via Juan in R groin - recurrent NATHAN on CKD - 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 Her strain of CRE was sensitive to colistin, Avycaz, and Vabomere but resistant to Zerbaxa (reported on 05/19/2018) - Hyponatremia - Hyperkalemia, now hypokalemia - Metabolic acidosis - adrenal insufficiency - h/o vaginal bleed in 2018 - h/o colonization of urinary tract by ESBL+klebsiella, VRE - h/o recurrent, symptomatic UTI due to carbapenem-resistant kleb (MDR strain) per urine culture 10/04/17, 10/09/17, 10/21/2017, P took colistin (10/09/2017- 10/15/2017), fosfomycin for carbapenemase-producing klebsiella and VRE on 10/25/2017 and 10/28/2017 - h/o funguria - h/o urinary retention # fungemia, bacteremia 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 improved. Probable manifestation of endocarditis. Pt declined MRI on 08/06/2017 - h/o infection of R toes due to pseudomonas. coagulase negative Staph likely a colonizer - h/o intertrigo of the groin, resolved with nystatin powder - h/o scabies, locally crusted lesion over L scapula, s/p permethrin cream and pGT ivermectin on 08/11/2017, 08/12/2017, 08/19/2017. Repeat skin scraping on 08/21/2017 was negative for scabies # psych, neuro - acute toxic metabolic encephalopathy - improving - decreased hearing b/l - h/o critical illness polyneuropathy - anxiety/depression, bipolar d/o, seen by Psychiatry in the past - chronic pain syndrome - h/o medical non-compliance: she would refuse her medications, treatment and straight catheterization in 2018 # hematological, vascular - chronic anemia requiring blood transfusion intermittently - Macrocytic anemia - 3.1 cm AAA on imaging - PVD Recommendations: - monitor wbc curve closely; avoid additional abx at this time - monitor/trend fever curve closely - continue pGT vancomycin (05/11/2018-) for C. diff colitis - begin taper, changed to tid today; s/p IV metronidazole (05/11/2018-05/29/2018; restart 05/30/2018-06/05/18); Pt completed meropenem for HCAP (05/13/2018-05/19/2018). - order in place to send linn cultures if temp >100.3 F - consider removing R groin HD catheter if feasible Plan was d/w nsg and with Dr. Sanchez. Thank you Consultation Date/Type/Reason Admit Date/Time May 06, 2018 at 17:38 Initial Consult Date 05/07/18 Type of Consult ID Requesting Provider: ROLAND GIRON MD Date/Time of Note DATE: 06/06/18 TIME: 14:16 24 HR Interval Summary Free Text/Dictation Patient unable to contribute to ROS d/t nonverbal/sleeping. Opened her eyes shortly and looked at me and then closed them again. Stool in rectal tube is thick soft now, not liquid. Patient's remained afebrile with no acute issues reported by nursing. Exam/Review of Systems Exam Vitals Vital Signs Date Temp Pulse Resp B/P (MAP) Pulse Ox O2 O2 Flow FiO2 Time Delivery Rate 06/06/18 105 21 98 30 13:13 06/06/18 98.7 113/69 11:17 (84) 06/05/18 Mechanical 16:14 Ventilator Trach Collar Intake and Output 06/05/18 06/05/18 06/06/18 1515:00 23:00 07:00 IntakeIntake Total 570 ml 495 ml OutputOutput Total 1000 ml 800 ml BalanceBalance -430 ml -305 ml Allergies Coded Allergies shellfish derived (Unverified Allergy, Unknown, 05/06/18) Exam Constitutional: alert, well developed, non-verbal, frail, obese, other (chronically debilitated, opened eyes with tactile stimuli, looked at me, and then purposefully closed them again) Psych: other (BRITTANY) Head: normocephalic, atraumatic Eyes: nl conjunctiva, nl lids, nl sclera ENMT: nl external ears & nose, nl nasal mucosa & septum Neck: supple, non-tender, other (on vent via trach, trach midline, sutures intact, site is c/d/i) Respiratory: normal air movement, diminished breath sounds (bilaterally, a nteriorly), respirations (tachypneic 27); No wheezing Cardiovascular: regular rate and rhythm, nl pulses Gastrointestinal: soft, non-tender, bowel sounds (normoactive ), other (PEG site is c/d/i; Flexiseal draining brown thick stool, the stool is thick and has to be milked down into the bag - is not liquid today); No distended, No firm Genitourinary - Female: other (F/c draining yellow urine with small amt of white seds noted. HD catheter R groin, site is c/d/i; +Intertrigo of groin) Musculoskeletal: muscle weakness, other (julia foot drop) Extremities: normal pulses, edema (BUE, BLE); No tenderness Neurological: other (Eye tracks me) Skin: nl turgor, other (Reviewed nsg notes/photos. LLE dressing c/d/i. R hand with a large linear shaped purple discoloration that when palpated felt fluctuant like a blister. It is intact with no openings or drainage.) Results Result Diagram: 06/05/18 0706 06/05/18 0706 Medications Medication Current Medications IV Flush (NS 10 ml) 10 ml PRN IV ; Start 05/06/18 at 20:30 Ascorbic Acid (Vitamin C) 500 mg DAILY GTB Last administered on 06/06/18at 09:42; Admin Dose 500 MG; Start 05/07/18 at 09:00 Albuterol/ Ipratropium (Duoneb) 3 ml Q2H RESP THERAPY PRN HHN SHORTNESS OF BREATH; Start 05/06/18 at 23:30 Zinc Sulfate (Zinc Sulfate) 220 mg DAILY GTB Last administered on 06/06/18at 09:41; Admin Dose 220 MG; Start 05/07/18 at 09:00 Ondansetron HCl (Zofran Tab) 4 mg Q6H PRN GTB NAUSEA AND/OR VOMITING Last administered on 05/31/18 16:47; Admin Dose 4 MG; Start 05/07/18 at 00:15 Multivitamins (Multivitamin) 30 ml DAILY GTB Last administered on 06/06/18 09:41; Admin Dose 30 ML; Start 05/07/18 at 09:00 [facility] This patient goldman... PRN PRN XX WOUND CARE; Start 05/09/18 at 17:00 Vancomycin HCl (Vancomycin Oral Syringe) 250 mg Q6 PO Last administered on 06/06/18 12:36; Admin Dose 250 MG; Start 05/12/18 at 00:00 Albuterol (Ventolin Hfa) 4 puff Q6H RESP THERAPY INH Last administered on 06/06/18 13:10; Admin Dose 4 PUFF; Start 05/12/18 at 20:00 Ipratropium [place] (Atrovent Hfa) 4 puff Q6H RESP THERAPY INH Last administered on 06/06/18 13:09; Admin Dose 4 PUFF; Start 05/12/18 at 20:00 Heparin Sodium (Porcine) (Heparin (1000 Units/ml)) 2,800 unit AFTER DIALYSIS CATHETER Last administered on 05/29/18 18:24; Admin Dose 2,800 UNIT; Start 05/16/18 at 16:30 Furosemide (Lasix) 40 mg BID DIURETICS IV Last administered on 06/06/18 04:51; Admin Dose 40 MG; Start 05/19/18 at 09:00 Epoetin Zen-epbx (RETACRIT(esrd)) 20,000 unit Tu@1700 SC Last administered on 06/02/18 17:06; Admin Dose 20,000 UNIT; Start 05/19/18 at 17:00 Spironolactone (Aldactone) 50 mg DAILY GTB Last administered on 06/06/18 09:42; Admin Dose 50 MG; Start 05/21/18 at 09:00 Metolazone (Zaroxolyn) 5 mg DAILY@0600 PO Last administered on 05/28/18 05:48; Admin Dose 5 MG; Start 05/22/18 at 09:00; Status Hold Famotidine (Pepcid) 20 mg DAILY PEG Last administered on 06/06/18 09:42; Admin Dose 20 MG; Start 05/23/18 at 09:00 Morphine Sulfate (morphine) 6 mg Q4H PRN PEG SEVERE PAIN LEVEL 7-10 Last administered on 06/05/18 11:35; Admin Dose 6 MG; Start 05/22/18 at 17:00 Albumin Human 100 ml @ 100 mls/hr DURING DIALYSIS PRN IV hypotension on hd Last administered on 05/29/18 14:49; Admin Dose 100 MLS/HR; Start 05/27/18 at 07:30 Cholestyramine Resin (Questran Light) 4 gm 0600,1200,1800,2300 PO Last administered on 06/06/18 12:36; Admin Dose 4 GM; Start 05/27/18 at 18:00 Lorazepam (Ativan) 0.5 mg Q4H PRN IV ANXIETY; Start 05/30/18 at 12:00 Acetaminophen (Tylenol Tab) 650 mg Q4H PRN PO MILD PAIN(1-3)OR ELEVATED TEMP Last administered on 06/04/18 20:40; Admin Dose 650 MG; Start 05/31/18 at 13:00 Metoclopramide HCl (Reglan) 5 mg Q6 IV Last administered on 06/06/18 12:37; Admin Dose 5 MG; Start 05/31/18 at 13:00 Collagenase (Santyl) 1 applic DAILY TOP Last administered on 06/06/18 09:41; Admin Dose 1 APPLIC; Start 06/01/18 at 09:00 Amiodarone HCl (Cordarone) 200 mg BID PO Last administered on 06/06/18 09:42; Admin Dose 200 MG; Start 06/01/18 at 21:00 Metoprolol Tartrate (Lopressor) 50 mg Q8 GTB Last administered on 06/06/18 13:22; Admin Dose 50 MG; Start 06/01/18 at 14:30 Clonidine (Catapres) 0.1 mg Q6H PRN PO ELEVATED BLOOD PRESSURE; Start 06/03/18 at 03:30 Miscellaneous Information (*Order Clarification Bulletin) MEDICATION REQUIRES CLARIFICATI... Q8H XX ; Start 06/05/18 at 21:00 Citric Acid/ Sodium Citrate (Bicitra) 30 ml TID PO Last administered on 4/20/19at 13:21; Admin Dose 30 ML; Start 06/06/18 at 13:00 KENA MÉNDEZ NP Jun 06, 2018 14:19
[2018-06-07] VITALS (21 sets, daily range): BP systolic 101–135; BP diastolic 49–83; PULSE 88–124; RESP 18–26
[2018-06-07] MEDS: METOCLOPRAMIDE 10 MG INJ IV SCH ×5 (01:05→23:22)
[2018-06-07] MEDS: ALBUTEROL HFA 8 GM INHALER INH SCH ×4 (01:08→19:35)
[2018-06-07] MEDS: IPRATROPIUM (HFA) 12.9 GM INHALER INH SCH ×4 (01:08→19:35)
[2018-06-07] MEDS: [UNRECOGNIZED DRUG - REMARK] XX SCH ×3 (04:33→19:32)
[2018-06-07] MEDS: VANCOMYCIN HCL 250 MG/5ML POSYG PO SCH ×3 (05:22→21:36)
[2018-06-07] MEDS: FUROSEMIDE 40 MG INJ IV SCH ×2 (05:23→17:57)
[2018-06-07] MEDS: METOPROLOL 50 MG TAB GTB SCH ×3 (05:23→21:37)
[2018-06-07] MEDS: CHOLESTYRAMINE (LIGHT) 4 GM PACKET PO SCH ×4 (05:24→23:15)
--- NOTE | 2018-06-07 08:43 | CONS ---
Assessment/Plan Assessment/Plan Assessment/Plan (Daily) Ventilator setting; AC of 20, tidal volume 500, PEEP of 5, 40% FiO2. Assessment and recommendations; 1. Patient with history of VDR F with recent decannulation of tracheostomy about 2 and half months ago admitted again for severe bilateral pneumonia requiring redo tracheostomy with stable overall clinical status. Patient off systemic antibiotics for pneumonia. 2. Renal failure, hemodialysis dependent. 3. History of cardiac arrhythmia. 4. Medical illness neuropathy/myopathy. 5. COPD. 6. C. difficile colitis. Continue current supportive care. Consider transfer to rehab center. Prognosis is poor. Consultation Date/Type/Reason Admit Date/Time May 06, 2018 at 17:38 Initial Consult Date 05/10/18 Type of Consult Pulmonary/critical care Requesting Provider: ROLAND GIRON MD Date/Time of Note DATE: 06/07/18 TIME: 08:41 24 HR Interval Summary Free Text/Dictation Patient's condition is stable. Has remained hemodynamically stable. No untoward events reported. General exam; elderly woman, on ventilator via tracheostomy, awake, currently no distress. Exam/Review of Systems Exam Vitals Vital Signs Date Temp Pulse Resp B/P (MAP) Pulse Ox O2 O2 Flow FiO2 Time Delivery Rate 06/07/18 126 26 96 30 08:28 06/07/18 97.9 130/83 08:02 (99) 06/05/18 Mechanical 16:14 Ventilator Trach Collar Intake and Output 06/06/18 06/06/18 06/07/18 1515:00 23:00 07:00 IntakeIntake Total 570 ml 520 ml OutputOutput Total 1200 ml 1100 ml BalanceBalance -630 ml -580 ml Exam H EENT exam; supple neck, positive JVD. No lymphadenopathy. Midline trachea. No thyromegaly. Tracheostomy in place. Patient has fair dentition. Chest exam; diminished breath sounds bilaterally. No added sounds. S1-S2 a udible, no murmurs. Abdomen exam; soft, no organomegaly. Nondistended. G-tube in place. Bowel jamie nds audible. Extremity exam; no edema. Patient does have patchy ecchymosis. PIPE BOWLS PAINT TRIMMER exam; no focal motor deficit. Patient though exhibiting generalized weakness. Results Result Diagram: 06/05/18 0706 06/05/18 0706 Medications Medication Current Medications IV Flush (NS 10 ml) 10 ml PRN IV ; Start 05/06/18 at 20:30 Ascorbic Acid (Vitamin C) 500 mg DAILY GTB Last administered on 06/06/18 09:42; Admin Dose 500 MG; Start 05/07/18 at 09:00 Albuterol/ Ipratropium (Duoneb) 3 ml Q2H RESP THERAPY PRN HHN SHORTNESS OF BREATH; Start 05/06/18 at 23:30 Zinc Sulfate (Zinc Sulfate) 220 mg DAILY GTB Last administered on 06/06/18 09:41; Admin Dose 220 MG; Start 05/07/18 at 09:00 Ondansetron HCl (Zofran Tab) 4 mg Q6H PRN GTB NAUSEA AND/OR VOMITING Last administered on 05/31/18 16:47; Admin Dose 4 MG; Start 05/07/18 at 00:15 Multivitamins (Multivitamin) 30 ml DAILY GTB Last administered on 06/06/18 09:41; Admin Dose 30 ML; Start 05/07/18 at 09:00 [facility] This patient goldman... PRN PRN XX WOUND CARE; Start 05/09/18 at 17:00 Albuterol (Ventolin Hfa) 4 puff Q6H RESP THERAPY INH Last administered on 06/07/18 08:27; Admin Dose 4 PUFF; Start 05/12/18 at 20:00 Ipratropium [place] (Atrovent Hfa) 4 puff Q6H RESP THERAPY INH Last administered on 06/07/18 08:27; Admin Dose 4 PUFF; Start 05/12/18 at 20:00 Heparin Sodium (Porcine) (Heparin (1000 Units/ml)) 2,800 unit AFTER DIALYSIS CATHETER Last administered on 05/29/18 18:24; Admin Dose 2,800 UNIT; Start 05/16/18 at 16:30 Furosemide (Lasix) 40 mg BID DIURETICS IV Last administered on 06/07/18 05:23; Admin Dose 40 MG; Start 05/19/18 at 09:00 Epoetin Zen-epbx (RETACRIT(esrd)) 20,000 unit Tu@1700 SC Last administered on 06/02/18 17:06; Admin Dose 20,000 UNIT; Start 05/19/18 at 17:00 Spironolactone (Aldactone) 50 mg DAILY GTB Last administered on 06/06/18 09:42; Admin Dose 50 MG; Start 05/21/18 at 09:00 Metolazone (Zaroxolyn) 5 mg DAILY@0600 PO Last administered on 05/28/18 05:48; Admin Dose 5 MG; Start 05/22/18 at 09:00; Status Hold Famotidine (Pepcid) 20 mg DAILY PEG Last administered on 06/06/18 09:42; Admin Dose 20 MG; Start 05/23/18 at 09:00 Morphine Sulfate (morphine) 6 mg Q4H PRN PEG SEVERE PAIN LEVEL 7-10 Last administered on 06/05/18 11:35; Admin Dose 6 MG; Start 05/22/18 at 17:00 Albumin Human 100 ml @ 100 mls/hr DURING DIALYSIS PRN IV hypotension on hd Last administered on 05/29/18 14:49; Admin Dose 100 MLS/HR; Start 05/27/18 at 07:30 Cholestyramine Resin (Questran Light) 4 gm 0600,1200,1800,2300 PO Last administered on 06/07/18 05:24; Admin Dose 4 GM; Start 05/27/18 at 18:00 Lorazepam (Ativan) 0.5 mg Q4H PRN IV ANXIETY; Start 05/30/18 at 12:00 Acetaminophen (Tylenol Tab) 650 mg Q4H PRN PO MILD PAIN(1-3)OR ELEVATED TEMP Last administered on 06/04/18 20:40; Admin Dose 650 MG; Start 05/31/18 at 13:00 Metoclopramide HCl (Reglan) 5 mg Q6 IV Last administered on 06/07/18 05:22; Admin Dose 5 MG; Start 05/31/18 at 13:00 Collagenase (Santyl) 1 applic DAILY TOP Last administered on 06/06/18 09:41; Admin Dose 1 APPLIC; Start 06/01/18 at 09:00 Amiodarone HCl (Cordarone) 200 mg BID PO Last administered on 06/06/18 21:09; Admin Dose 200 MG; Start 06/01/18 at 21:00 Metoprolol Tartrate (Lopressor) 50 mg Q8 GTB Last administered on 06/07/18at 05:23; Admin Dose 50 MG; Start 06/01/18 at 14:30 Clonidine (Catapres) 0.1 mg Q6H PRN PO ELEVATED BLOOD PRESSURE; Start 06/03/18 at 03:30 Miscellaneous Information (*Order Clarification Bulletin) MEDICATION REQUIRES CLARIFICATI... Q8H XX ; Start 06/05/18 at 21:00 Citric Acid/ Sodium Citrate (Bicitra) 30 ml TID PO Last administered on 06/06/18at 21:08; Admin Dose 30 ML; Start 06/06/18 at 13:00 Vancomycin HCl (Vancomycin Oral Syringe) 250 mg Q8 PO Last administered on 06/07/18at 05:22; Admin Dose 250 MG; Start 06/06/18 at 22:00 ELOISA LAURA Jun 07, 2018 08:43
[2018-06-07] MEDS: COLLAGENASE 5 GM (UD JAR) TOP SCH (08:46)
[2018-06-07] MEDS: ZINC SULFATE 220 MG CAP GTB SCH (08:46)
[2018-06-07] MEDS: BALSAM PERU/CASTOR OIL 60 GM TUBE TOP SCH ×2 (08:46→21:36)
[2018-06-07] MEDS: AMIODARONE 200 MG TAB PO SCH ×2 (08:46→21:37)
[2018-06-07] MEDS: ASCORBIC ACID 500 MG TAB GTB SCH (08:46)
[2018-06-07] MEDS: FAMOTIDINE 20 MG TAB PEG SCH (08:46)
[2018-06-07] MEDS: SPIRONOLACTONE 25 MG TAB GTB SCH (08:46)
[2018-06-07] MEDS: MULTIVITAMINS 30 ML CUP GTB SCH (08:46)
[2018-06-07] MEDS: CITRIC ACID/NA CITRATE 30 ML CUP PO SCH ×3 (08:46→21:36)
--- NOTE | 2018-06-07 11:52 | CONS ---
[facility] HCIS Consult Follow-up Patient Name: Zuly Mcwilliams Unit Number: [id number] Date of : 1945 Patient Status: Admitted Inpatient Attending Doctor: Roland Giron MD Edit: CELESTINE SANCHEZ M.D. on 06/08/18 @ 04:52 Daniel: I discussed the management with PLUMBING DRAFTER and agree Assessment/Plan Assessment/Plan Hospital Course (Demo Recall) # sepsis, SIRS, pulmonary, cardiac - s/p septic shock due to pneumonia and C diff colitis - acute on chronic hypoxic respiratory failure, persistent - s/p reintubation 05/12/2018 - s/p re-do trach on 05/29/2018 - recurrent colonization of the anterior neck wound with ESBL+kleb, MRSA, GBS, corynebacteria on 05/06/2018 -s/p meropenem - h/o pneumonia vs. colonization of the airway by pseudomonas and ESBL+klebsiella - h/o possible, recurrent HCAP due to pseudomonas and ESBL+klebsiella - h/o recurrent HCAP due to MRSA and Enterobacter (culture of tracheal aspirate on 07/16/2017 that was collected at [facility]) . Pt took vancomycin and ceftazidime - h/o decannulation prior to admission - h/o tracheostomy on 06/11/2017 - h/o SIRS from UGIB in 2018 - h/o thoracentesis on 07/18/2017, transudative (protein <2, LDH 279) - h/o bleeding from the trach site in 2018 - h/o septic shock due to pneumonia, ARDS, bacteremia, fungemia in 2018 - h/o ARDS in 2018 - h/o smoking - COPD - h/o ILD per medical record - h/o PAF, improved # GI - C diff colitis, diagnosed on 05/11/2018 - h/o intermittent diarrhea, Pt had multiple negative C. diff tests at [facility] at OSH in the past; none was positive until 05/11/2018 - dysphagia - h/o PEG placement 06/13/2018 - protein calorie malnutrition - h/o coffee ground emesis/UGIB on 12/23/2017 due to deep ulceration of distal esophagus and gastritis on EGD 12/26/2017. No e/o H. pylori - h/o possible appendicitis on CT on 11/22/2017, Pt took ertapenem (11/24/2017- 12/01/2017) - h/o extensive adhesions lower abdominal and pelvis between small bowel to each other and to colon and to abdominal wall, anterior pelvic wall chronic abscess secondary to probably an old perforated diverticulitis, torsion of small bowel around these dense adhesion causing multiple obstructive points - h/o laparoscopic exploration and extensive lysis of adhesions and drainage of anterior pelvic wall abscess 09/16/2017. Cultures were negative, no e/o malig natalie. Pt took pip/tazo (09/16/2017-09/26/2017) - h/o EGD and exchange of PEG on 09/01/2017 - h/o partial obstruction mid jejunum in L anterior central pelvis with suggestion of a 3 cm soft tissue mass on CT 08/28/2017 - h/o internal stomal deep ulcer behind the internal bumper, gastritis and esophagitis, Rodriguez's cannot be ruled out, per EGD with biopsy 07/23/2017 - h/o GIB s/p flex sig showed polyp; stool OB negative on 06/29/17 - h/o stool OB positive status - h/o SBO and ileus due to pain meds - h/o mildly elevated CEA # renal/ - anasarca - started on HD on 05/15/2018, via Juan in R groin - recurrent NATHAN on CKD - 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 Her strain of CRE was sensitive to colistin, Avycaz, and Vabomere but resistant to Zerbaxa (reported on 05/19/2018) - Hyponatremia - Hyperkalemia, now hypokalemia - Metabolic acidosis - adrenal insufficiency - h/o vaginal bleed in 2018 - h/o colonization of urinary tract by ESBL+klebsiella, VRE - h/o recurrent, symptomatic UTI due to carbapenem-resistant kleb (MDR strain) per urine culture 10/04/17, 10/09/17, 10/21/2017, P took colistin (10/09/2017- 10/15/2017), fosfomycin for carbapenemase-producing klebsiella and VRE on 10/25/2017 and 10/28/2017 - h/o funguria - h/o urinary retention # fungemia, bacteremia 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 improved. Probable manifestation of endocarditis. Pt declined MRI on 08/06/2017 - h/o infection of R toes due to pseudomonas. coagulase negative Staph likely a colonizer - h/o intertrigo of the groin, resolved with nystatin powder - h/o scabies, locally crusted lesion over L scapula, s/p permethrin cream and pGT ivermectin on 08/11/2017, 08/12/2017, 08/19/2017. Repeat skin scraping on 08/21/2017 was negative for scabies # psych, neuro - acute toxic metabolic encephalopathy - improving - decreased hearing b/l - h/o critical illness polyneuropathy - anxiety/depression, bipolar d/o, seen by Psychiatry in the past - chronic pain syndrome - h/o medical non-compliance: she would refuse her medications, treatment and straight catheterization in 2018 # hematological, vascular - chronic anemia requiring blood transfusion intermittently - Macrocytic anemia - 3.1 cm AAA on imaging - PVD Recommendations: - monitor wbc curve closely; avoid additional abx at this time - monitor/trend fever curve closely - continue pGT tid vancomycin (05/11/2018-) for C. diff colitis; s/p IV metronidazole (05/11/2018-05/29/2018; restart 05/30/2018-06/05/18); Pt completed meropenem for HCAP (05/13/2018-05/19/2018). - order in place to send linn cultures if temp >100.3 F - consider removing R groin HD catheter if feasible Plan was d/w patient's RN and with Dr. Sanchez. Thank you Consultation Date/Type/Reason Admit Date/Time May 06, 2018 at 17:38 Initial Consult Date 05/07/18 Type of Consult ID Requesting Provider: ROLAND GIRON MD Date/Time of Note DATE: 06/07/18 TIME: 11:51 24 HR Interval Summary Free Text/Dictation Patient unable to contribute to ROS d/t nonverbal, kept eyes closed. Per patient's RN the rectal tube fell out yesterday and it was replaced, no stool currently draining, she will assess if patient still needs the tube d/t the stool was thickening already. Exam/Review of Systems Exam Vitals Vital Signs Date Temp Pulse Resp B/P (MAP) Pulse Ox O2 O2 Flow FiO2 Time Delivery Rate 06/07/18 98.7 118 18 135/75 96 11:01 (95) 06/07/18 30 09:40 06/05/18 Mechanical 16:14 Ventilator Trach Collar Intake and Output 06/06/18 06/06/18 06/07/18 1515:00 23:00 07:00 IntakeIntake Total 570 ml 520 ml OutputOutput Total 1200 ml 1100 ml BalanceBalance -630 ml -580 ml Allergies Coded Allergies shellfish derived (Unverified Allergy, Unknown, 05/06/18) Exam Constitutional: alert, well developed, non-verbal, frail, obese, other (chronically debilitated, kept eyes closed today) Psych: other (BRITTANY) Head: normocephalic, atraumatic Eyes: nl conjunctiva, nl lids, nl sclera ENMT: nl external ears & nose, nl nasal mucosa & septum Neck: supple, non-tender, other (on vent via trach, trach midline, sutures i ntact, site is c/d/i) Respiratory: normal air movement, diminished breath sounds (bilaterally, anteriorly); No wheezing Cardiovascular: regular rate and rhythm, nl pulses Gastrointestinal: soft, non-tender, bowel sounds (normoactive ), other (PEG site is erythematous beneath the bumper, moist. I asked RN to place a dressing to protect the skin; Flexiseal - empty tubing and bag); No distended, No firm Genitourinary - Female: other (F/c draining yellow urine with small amt of white seds noted. HD catheter R groin, site is c/d/i; +Intertrigo of groin) Musculoskeletal: muscle weakness, other (julia foot drop) Extremities: normal pulses, edema (BUE, BLE); No tenderness Neurological: other (Eye tracks me when eyes are open) Skin: nl turgor, other (Reviewed nsg notes/photos. LLE dressing c/d/i. R hand with a large linear shaped purple discoloration that when palpated felt fluctuant like a blister - improved. It is intact with no openings or drainage.) Results Result Diagram: 06/05/1870506/05/18 0706 Medications Medication Current Medications IV Flush (NS 10 ml) 10 ml PRN IV ; Start 05/06/18 at 20:30 Ascorbic Acid (Vitamin C) 500 mg DAILY GTB Last administered on 06/07/18at 08:46; Admin Dose 500 MG; Start 05/07/18 at 09:00 Albuterol/ Ipratropium (Duoneb) 3 ml Q2H RESP THERAPY PRN HHN SHORTNESS OF BREATH; Start 05/06/18 at 23:30 Zinc Sulfate (Zinc Sulfate) 220 mg DAILY GTB Last administered on 06/07/18at 08:46; Admin Dose 220 MG; Start 05/07/18 at 09:00 Ondansetron HCl (Zofran Tab) 4 mg Q6H PRN GTB NAUSEA AND/OR VOMITING Last admi nistered on 05/31/18at 16:47; Admin Dose 4 MG; Start 05/07/18 at 00:15 Multivitamins (Multivitamin) 30 ml DAILY GTB Last administered on 06/07/18 08:46; Admin Dose 30 ML; Start 05/07/18 at 09:00 [facility]isc[facility] This patient goldman... PRN PRN XX WOUND CARE; Start 05/09/18 at 17:00 Albuterol (Ventolin Hfa) 4 puff Q6H RESP THERAPY INH Last administered on 06/07/18 08:27; Admin Dose 4 PUFF; Start 05/12/18 at 20:00 Ipratropium [place] (Atrovent Hfa) 4 puff Q6H RESP THERAPY INH Last administered on 06/07/18 08:27; Admin Dose 4 PUFF; Start 05/12/18 at 20:00 Heparin Sodium (Porcine) (Heparin (1000 Units/ml)) 2,800 unit AFTER DIALYSIS CATHETER Last administered on 05/29/18 18:24; Admin Dose 2,800 UNIT; Start 05/16/18 at 16:30 Furosemide (Lasix) 40 mg BID DIURETICS IV Last administered on 06/07/18 05:23; Admin Dose 40 MG; Start 05/19/18 at 09:00 Epoetin Zen-epbx (RETACRIT(esrd)) 20,000 unit Tu@1700 SC Last administered on 06/02/18 17:06; Admin Dose 20,000 UNIT; Start 05/19/18 at 17:00 Spironolactone (Aldactone) 50 mg DAILY GTB Last administered on 06/07/18 08:46; Admin Dose 50 MG; Start 05/21/18 at 09:00 Metolazone (Zaroxolyn) 5 mg DAILY@0600 PO Last administered on 05/28/18 05:48; Admin Dose 5 MG; Start 05/22/18 at 09:00; Status Hold Famotidine (Pepcid) 20 mg DAILY PEG Last administered on 06/07/18 08:46; Admin Dose 20 MG; Start 05/23/18 at 09:00 Morphine Sulfate (morphine) 6 mg Q4H PRN PEG SEVERE PAIN LEVEL 7-10 Last adm inistered on 06/05/18 11:35; Admin Dose 6 MG; Start 05/22/18 at 17:00 Albumin Human 100 ml @ 100 mls/hr DURING DIALYSIS PRN IV hypotension on hd Last administered on 05/29/18 14:49; Admin Dose 100 MLS/HR; Start 05/27/18 at 07:30 Cholestyramine Resin (Questran Light) 4 gm 0600,1200,1800,2300 PO Last administered on 06/07/18 05:24; Admin Dose 4 GM; Start 05/27/18 at 18:00 Lorazepam (Ativan) 0.5 mg Q4H PRN IV ANXIETY; Start 05/30/18 at 12:00 Acetaminophen (Tylenol Tab) 650 mg Q4H PRN PO MILD PAIN(1-3)OR ELEVATED TEMP Last administered on 06/04/18 20:40; Admin Dose 650 MG; Start 05/31/18 at 13:00 Metoclopramide HCl (Reglan) 5 mg Q6 IV Last administered on 06/07/18 05:22; Admin Dose 5 MG; Start 05/31/18 at 13:00 Collagenase (Santyl) 1 applic DAILY TOP Last administered on 06/07/18 08:46; Admin Dose 1 APPLIC; Start 06/01/18 at 09:00 Amiodarone HCl (Cordarone) 200 mg BID PO Last administered on 06/07/18 08:46; Admin Dose 200 MG; Start 06/01/18 at 21:00 Metoprolol Tartrate (Lopressor) 50 mg Q8 GTB Last administered on 06/07/18 05:23; Admin Dose 50 MG; Start 06/01/18 at 14:30 Clonidine (Catapres) 0.1 mg Q6H PRN PO ELEVATED BLOOD PRESSURE; Start 06/03/18 at 03:30 Miscellaneous Information (*Order Clarification Bulletin) MEDICATION REQUIRES CLARIFICATI... Q8H XX ; Start 06/05/18 at 21:00 Citric Acid/ Sodium Citrate (Bicitra) 30 ml TID PO Last administered on 06/07/18 08:46; Admin Dose 30 ML; Start 06/06/18 at 13:00 Vancomycin HCl (Vancomycin Oral Syringe) 250 mg Q8 PO Last administered on 06/07/18 05:22; Admin Dose 250 MG; Start 06/06/18 at 22:00 KENA MÉNDEZ NP Jun 07, 2018 11:52
--- NOTE | 2018-06-07 12:31 | PN ---
Date/Time of Note Date/Time of Note DATE: 06/07/18 TIME: 12:31 Assessment/Plan VTE Prophylaxis Risk score (from Ns)>0 risk: 3 SCD applied (from Ns): Yes Pharmacological prophylaxis: LMWH Lines/Catheters IV Catheter Type (from [facility]): PICC Line Central line still needed: Yes Urinary Cath still in place: Yes Reason Cath still needed: skin wounds contaminated by urine Assessment/Plan Hospital Course -Atrial fibrillation was rapid ventricular response, s/p amiodarone drip. Rate is well controlled on p.o. amiodarone and metoprolol. Dr. Scanlon is following in cardiology consultation. -Septic shock secondary to urinary tract infection, anterior neck soft tissue infection, and C. difficile colitis, resolving. Continue antibiotics per ID. Dr. Doyle is following in infection disease consultation. -Acute respiratory failure requiring intubation and ventilatory support. Dr. Lambert is following in pulmonology consultation. -S/p tracheostomy on 05/29/18. -Acute kidney injury on chronic kidney disease. Started on HD this admission. Dr. Mckeon is following in nephrology consultation. -Anemia of chronic inflammation, stool for OB is negative, status post blood transfusion. Continue Epogen. -Metabolic acidosis, resolved. -Acute diastolic congestive heart failure. -Paroxysmal atrial fibrillation -COPD -Dysphagia with PEG. -G-tube mild malfunction, changed by GI Dr. Carolina is following in gastroenterology consultation. -Obesity Result Diagram: 06/05/18 0706 06/05/18 0706 Subjective 24 Hr Interval Summary Free Text/Dictation Patient awake, on vent via trach, has no complaints Exam/Review of Systems Exam Vitals Vital Signs Date Temp Pulse Resp B/P (MAP) Pulse Ox O2 O2 Flow FiO2 Time Delivery Rate 06/07/18 98.7 118 18 135/75 96 11:01 (95) 06/07/18 30 09:40 06/05/18 Mechanical 16:14 Ventilator Trach Collar Intake and Output 06/06/18 06/06/18 06/07/18 1515:00 23:00 07:00 IntakeIntake Total 570 ml 520 ml OutputOutput Total 1200 ml 1100 ml BalanceBalance -630 ml -580 ml Constitutional: well developed Head: normocephalic, atraumatic Neck: supple Respiratory: diminished breath sounds Cardiovascular: regular rate and rhythm Gastrointestinal: soft, non-tender Extremities: normal pulses Medications Medication Current Medications IV Flush (NS 10 ml) 10 ml PRN IV ; Start 05/06/18 at 20:30 Ascorbic Acid (Vitamin C) 500 mg DAILY GTB Last administered on 06/07/18 08:46; Admin Dose 500 MG; Start 05/07/18 at 09:00 Albuterol/ Ipratropium (Duoneb) 3 ml Q2H RESP THERAPY PRN HHN SHORTNESS OF BREATH; Start 05/06/18 at 23:30 Zinc Sulfate (Zinc Sulfate) 220 mg DAILY GTB Last administered on 06/07/18 08:46; Admin Dose 220 MG; Start 05/07/18 at 09:00 Ondansetron HCl (Zofran Tab) 4 mg Q6H PRN GTB NAUSEA AND/OR VOMITING Last administered on 05/31/18 16:47; Admin Dose 4 MG; Start 05/07/18 at 00:15 Multivitamins (Multivitamin) 30 ml DAILY GTB Last administered on 06/07/18 08:46; Admin Dose 30 ML; Start 05/07/18 at 09:00 [facility] This patient goldman... PRN PRN XX WOUND CARE; Start 05/09/18 at 17:00 Albuterol (Ventolin Hfa) 4 puff Q6H RESP THERAPY INH Last administered on 06/07/18 08:27; Admin Dose 4 PUFF; Start 05/12/18 at 20:00 Ipratropium [place] (Atrovent Hfa) 4 puff Q6H RESP THERAPY INH Last administered on 06/07/18 08:27; Admin Dose 4 PUFF; Start 05/12/18 at 20:00 Heparin Sodium (Porcine) (Heparin (1000 Units/ml)) 2,800 unit AFTER DIALYSIS CATHETER Last administered on 05/29/18 18:24; Admin Dose 2,800 UNIT; Start 05/16/18 at 16:30 Furosemide (Lasix) 40 mg BID DIURETICS IV Last administered on 06/07/18 05:23; Admin Dose 40 MG; Start 05/19/18 at 09:00 Epoetin Zen-epbx (RETACRIT(esrd)) 20,000 unit Tu@1700 SC Last administered on 06/02/18 17:06; Admin Dose 20,000 UNIT; Start 05/19/18 at 17:00 Spironolactone (Aldactone) 50 mg DAILY GTB Last administered on 06/07/18 08:46; Admin Dose 50 MG; Start 05/21/18 at 09:00 Metolazone (Zaroxolyn) 5 mg DAILY@0600 PO Last administered on 05/28/18 05:48; Admin Dose 5 MG; Start 05/22/18 at 09:00; Status Hold Famotidine (Pepcid) 20 mg DAILY PEG Last administered on 06/07/18 08:46; Admin Dose 20 MG; Start 05/23/18 at 09:00 Morphine Sulfate (morphine) 6 mg Q4H PRN PEG SEVERE PAIN LEVEL 7-10 Last administered on 06/05/18 11:35; Admin Dose 6 MG; Start 05/22/18 at 17:00 Albumin Human 100 ml @ 100 mls/hr DURING DIALYSIS PRN IV hypotension on hd Last administered on 05/29/18 14:49; Admin Dose 100 MLS/HR; Start 05/27/18 at 07:30 Cholestyramine Resin (Questran Light) 4 gm 0600,1200,1800,2300 PO Last administered on 06/07/18 11:45; Admin Dose 4 GM; Start 05/27/18 at 18:00 Lorazepam (Ativan) 0.5 mg Q4H PRN IV ANXIETY; Start 05/30/18 at 12:00 Acetaminophen (Tylenol Tab) 650 mg Q4H PRN PO MILD PAIN(1-3)OR ELEVATED TEMP Last administered on 06/04/18 20:40; Admin Dose 650 MG; Start 05/31/18 at 13:00 Metoclopramide HCl (Reglan) 5 mg Q6 IV Last administered on 06/07/18 11:42; Ad min Dose 5 MG; Start 05/31/18 at 13:00 Collagenase (Santyl) 1 applic DAILY TOP Last administered on 06/07/18 08:46; Admin Dose 1 APPLIC; Start 06/01/18 at 09:00 Amiodarone HCl (Cordarone) 200 mg BID PO Last administered on 06/07/18 08:46; Admin Dose 200 MG; Start 06/01/18 at 21:00 Metoprolol Tartrate (Lopressor) 50 mg Q8 GTB Last administered on 06/07/18at 05:23; Admin Dose 50 MG; Start 06/01/18 at 14:30 Clonidine (Catapres) 0.1 mg Q6H PRN PO ELEVATED BLOOD PRESSURE; Start 06/03/18 at 03:30 Miscellaneous Information (*Order Clarification Bulletin) MEDICATION REQUIRES CLARIFICATI... Q8H XX ; Start 06/05/18 at 21:00 Citric Acid/ Sodium Citrate (Bicitra) 30 ml TID PO Last administered on 06/07/18at 08:46; Admin Dose 30 ML; Start 06/06/18 at 13:00 Vancomycin HCl (Vancomycin Oral Syringe) 250 mg Q8 PO Last administered on 06/07/18at 05:22; Admin Dose 250 MG; Start 06/06/18 at 22:00 STEPHANIE BAL Jun 07, 2018 12:31
--- NOTE | 2018-06-07 13:26 | CONS ---
Assessment/Plan Assessment/Plan Assessment/Plan (Daily) 1. Nonoliguric acute kidney injury on top of chronic kidney disease with previous baseline creatinine between 2 to 2.5 mg/dL. Etiology of acute kidney injury is secondary to acute tubular necrosis. The patient is status post hemodialysis. The patient's Juan catheter was removed. The patient has shown adequate renal recovery and is now at new baseline.. Continue to monitor. 2. Volume overload secondary to acute kidney injury, congestive heart failure, clinically improving. Continue diuretic regimen. 3. Hypokalemia. We will replete with potassium chloride. 4. Hypernatremia. The patient has free water flushes were discontinued. Continue to monitor. 5. Metabolic acidosis. increase bicitra 6. Anemia. Continue to monitor hemoglobin and hematocrit levels. Continue Epogen. 7. Mineral bone disorder, monitor calcium and phosphorus levels. 8. Ventilatory dependent respiratory failure. Vent settings and ABG was reviewed. Continue to monitor. 9. Sepsis, status post shock. The patient is completing antibiotic course. 10. Dysphagia. Continue tube feeding. 11. Acute encephalopathy, etiology is toxic metabolic. 12. Lower extremity wounds. Continue wound care. Consultation Date/Type/Reason Admit Date/Time May 06, 2018 at 17:38 Initial Consult Date 05/10/18 Requesting Provider: ROLAND GIRON MD Date/Time of Note DATE: 06/07/18 TIME: 13:25 24 HR Interval Summary Free Text/Dictation denies n/v or shortness of breath d/w rn gen nad cv rrr pulm ctab abd soft, nd, nt +bs ext: no edema Exam/Review of Systems Exam Vitals Vital Signs Date Temp Pulse Resp B/P (MAP) Pulse Ox O2 O2 Flow FiO2 Time Delivery Rate 06/07/18 111 23 97 30 11:54 06/07/18 98.7 135/75 11:01 (95) 06/05/18 Mechanical 16:14 Ventilator Trach Collar Intake and Output 06/06/18 06/06/18 06/07/18 1515:00 23:00 07:00 IntakeIntake Total 570 ml 520 ml OutputOutput Total 1200 ml 1100 ml BalanceBalance -630 ml -580 ml Results Result Diagram: 06/05/18 0706 06/05/18 0706 Medications Medication Current Medications IV Flush (NS 10 ml) 10 ml PRN IV ; Start 05/06/18 at 20:30 Ascorbic Acid (Vitamin C) 500 mg DAILY GTB Last administered on 06/07/18 08:46; Admin Dose 500 MG; Start 05/07/18 at 09:00 Albuterol/ Ipratropium (Duoneb) 3 ml Q2H RESP THERAPY PRN HHN SHORTNESS OF BREATH; Start 05/06/18 at 23:30 Zinc Sulfate (Zinc Sulfate) 220 mg DAILY GTB Last administered on 06/07/18 08:46; Admin Dose 220 MG; Start 05/07/18 at 09:00 Ondansetron HCl (Zofran Tab) 4 mg Q6H PRN GTB NAUSEA AND/OR VOMITING Last administered on 05/31/18 16:47; Admin Dose 4 MG; Start 05/07/18 at 00:15 Multivitamins (Multivitamin) 30 ml DAILY GTB Last administered on 06/07/18 08:46; Admin Dose 30 ML; Start 05/07/18 at 09:00 Miscellaneous [facility] This patient goldman... PRN PRN XX WOUND CARE; Start 05/09/18 at 17:00 Albuterol (Ventolin Hfa) 4 puff Q6H RESP THERAPY INH Last administered on 06/07/18 08:27; Admin Dose 4 PUFF; Start 05/12/18 at 20:00 Ipratropium [place] (Atrovent Hfa) 4 puff Q6H RESP THERAPY INH Last administered on 06/07/18 08:27; Admin Dose 4 PUFF; Start 05/12/18 at 20:00 Heparin Sodium (Porcine) (Heparin (1000 Units/ml)) 2,800 unit AFTER DIALYSIS CATHETER Last administered on 05/29/18 18:24; Admin Dose 2,800 UNIT; Start 05/16/18 at 16:30 Furosemide (Lasix) 40 mg BID DIURETICS IV Last administered on 06/07/18 05:23; Admin Dose 40 MG; Start 05/19/18 at 09:00 Epoetin Zen-epbx (RETACRIT(esrd)) 20,000 unit Tu@1700 SC Last administered on 06/02/18 17:06; Admin Dose 20,000 UNIT; Start 05/19/18 at 17:00 Spironolactone (Aldactone) 50 mg DAILY GTB Last administered on 06/07/18 08:46; Admin Dose 50 MG; Start 05/21/18 at 09:00 Metolazone (Zaroxolyn) 5 mg DAILY@0600 PO Last administered on 05/28/18 05:48; Admin Dose 5 MG; Start 05/22/18 at 09:00; Status Hold Famotidine (Pepcid) 20 mg DAILY PEG Last administered on 06/07/18 08:46; Admin Dose 20 MG; Start 05/23/18 at 09:00 Morphine Sulfate (morphine) 6 mg Q4H PRN PEG SEVERE PAIN LEVEL 7-10 Last administered on 06/05/18 11:35; Admin Dose 6 MG; Start 05/22/18 at 17:00 Albumin Human 100 ml @ 100 mls/hr DURING DIALYSIS PRN IV hypotension on hd Last administered on 05/29/18 14:49; Admin Dose 100 MLS/HR; Start 05/27/18 at 07:30 Cholestyramine Resin (Questran Light) 4 gm 0600,1200,1800,2300 PO Last administered on 06/07/18 11:45; Admin Dose 4 GM; Start 05/27/18 at 18:00 Lorazepam (Ativan) 0.5 mg Q4H PRN IV ANXIETY; Start 05/30/18 at 12:00 Acetaminophen (Tylenol Tab) 650 mg Q4H PRN PO MILD PAIN(1-3)OR ELEVATED TEMP Last administered on 06/04/18 20:40; Admin Dose 650 MG; Start 05/31/18 at 13:00 Metoclopramide HCl (Reglan) 5 mg Q6 IV Last administered on 06/07/18 11:42; Admin Dose 5 MG; Start 05/31/18 at 13:00 Collagenase (Santyl) 1 applic DAILY TOP Last administered on 06/07/18 08:46; Admin Dose 1 APPLIC; Start 06/01/18 at 09:00 Amiodarone HCl (Cordarone) 200 mg BID PO Last administered on 06/07/18 08:46; Admin Dose 200 MG; Start 06/01/18 at 21:00 Metoprolol Tartrate (Lopressor) 50 mg Q8 GTB Last administered on 4/21/19at 13:08; Admin Dose 50 MG; Start 06/01/18 at 14:30 Clonidine (Catapres) 0.1 mg Q6H PRN PO ELEVATED BLOOD PRESSURE; Start 06/03/18 at 03:30 Miscellaneous Information (*Order Clarification Bulletin) MEDICATION REQUIRES CLARIFICATI... Q8H XX ; Start 06/05/18 at 21:00 Citric Acid/ Sodium Citrate (Bicitra) 30 ml TID PO Last administered on 06/07/18at 13:08; Admin Dose 30 ML; Start 06/06/18 at 13:00 Vancomycin HCl (Vancomycin Oral Syringe) 250 mg Q8 PO Last administered on 06/07/18at 13:08; Admin Dose 250 MG; Start 06/06/18 at 22:00 ALIZE FLORES MD Jun 07, 2018 13:26
[2018-06-08] VITALS (23 sets, daily range): BP systolic 104–165; BP diastolic 57–87; PULSE 84–126; RESP 17–27
[2018-06-08] MEDS: IPRATROPIUM (HFA) 12.9 GM INHALER INH SCH ×4 (02:17→21:00)
[2018-06-08] MEDS: ALBUTEROL HFA 8 GM INHALER INH SCH ×4 (02:17→21:01)
[2018-06-08] MEDS: [UNRECOGNIZED DRUG - REMARK] XX SCH ×3 (05:00→21:00)
[2018-06-08] MEDS: FUROSEMIDE 40 MG INJ IV SCH ×2 (05:56→17:57)
[2018-06-08] MEDS: METOCLOPRAMIDE 10 MG INJ IV SCH ×3 (05:56→17:57)
[2018-06-08] MEDS: CHOLESTYRAMINE (LIGHT) 4 GM PACKET PO SCH ×4 (05:56→23:00)
[2018-06-08] MEDS: METOPROLOL 50 MG TAB GTB SCH (05:57)
[2018-06-08] MEDS: VANCOMYCIN HCL 250 MG/5ML POSYG PO SCH ×3 (05:57→22:39)
[2018-06-08] MEDS: MULTIVITAMINS 30 ML CUP GTB SCH (09:14)
[2018-06-08] MEDS: CITRIC ACID/NA CITRATE 30 ML CUP PO SCH ×3 (09:14→22:40)
[2018-06-08] MEDS: ASCORBIC ACID 500 MG TAB GTB SCH (09:15)
[2018-06-08] MEDS: AMIODARONE 200 MG TAB PO SCH ×3 (09:15→22:39)
[2018-06-08] MEDS: COLLAGENASE 5 GM (UD JAR) TOP SCH (09:15)
[2018-06-08] MEDS: SPIRONOLACTONE 25 MG TAB GTB SCH (09:15)
[2018-06-08] MEDS: FAMOTIDINE 20 MG TAB PEG SCH (09:16)
[2018-06-08] MEDS: ZINC SULFATE 220 MG CAP GTB SCH (09:16)
[2018-06-08] MEDS: BALSAM PERU/CASTOR OIL 60 GM TUBE TOP SCH ×2 (09:18→21:00)
--- NOTE | 2018-06-08 09:28 | PN ---
DATE: 06/08/2018 SUBJECTIVE: The patient is stable, no events overnight. OBJECTIVE: VITAL SIGNS: Blood pressure is 138/87, pulse 120, respirations 22, temperature 99.0. HEENT: Head is normocephalic. NECK: Supple. HEART: Regular rate. LUNGS: Show diminished breath sounds at the base. ABDOMEN: Soft, nontender to palpation. No rebound or guarding. EXTREMITIES: Negative for clubbing, cyanosis, no edema. DERMATOLOGIC: No rashes. MUSCULOSKELETAL: No joint effusion. NEUROLOGIC: No change in exam. MEDICATIONS: Reviewed. LABORATORY DATA: From 06/05/2018 was reviewed. ASSESSMENT AND PLAN: 1. Nonoliguric acute kidney injury with previous baseline creatinine of around 2 to 2.5 mg/dL. Etio logy of acute kidney injury is secondary to acute tubular necrosis. The patient is status post hemod ialysis. At this point, the patient has shown adequate renal recovery. Currently at baseline. Cont inue current treatment plan, supportive care, renally dose all medicines. 2. Volume overload, clinically improving, etiology is secondary to congestive heart failure, acute k idney injury. Continue current diuretic regimen. 3. Hypokalemia. Continue to monitor and replete as needed. 4. Hypernatremia. Continue free water flushes. 5. Metabolic acidosis. Continue Bicitra. 6. Anemia. Monitor hemoglobin and hematocrit levels. Continue Epogen. 7. Mineral bone disorder, monitor calcium and phosphorus levels. 8. Ventilator dependent respiratory failure. Vent settings and ABG was reviewed. Continue to monit or. 9. Sepsis, status post shock. Continue current antibiotic regimen. 10. Dysphagia. Continue tube feeding. 11. Acute encephalopathy, etiology is toxic metabolic. 12. Lower extremity wounds. Continue wound care. Dictated By: JEANA BANSAL DO NR/NTS Conf#: [id number] DID#: [id number] CC: QUINTEN UMAÑA MD; ROLAND GIRON MD;*EndCC*
--- NOTE | 2018-06-08 13:21 | PN ---
Date/Time of Note Date/Time of Note DATE: 06/08/18 TIME: 13:20 Assessment/Plan VTE Prophylaxis [place] [facility] risk: 10 SCD applied [place] [facility] Yes Pharmacological prophylaxis: LMWH Lines/Catheters IV Catheter Type (from [facility]): PICC Line Central line still needed: Yes Urinary Cath still in place: Yes Reason Cath still needed: skin wounds contaminated by urine Assessment/Plan Hospital Course -Atrial fibrillation was rapid ventricular response, s/p amiodarone drip. Rate is well controlled on p.o. amiodarone and metoprolol. Dr. Scanlon is following in cardiology consultation. -Septic shock secondary to urinary tract infection, anterior neck soft tissue infection, and C. difficile colitis, resolving. Continue antibiotics per ID. Dr. Doyle is following in infection disease consultation. -Acute respiratory failure requiring intubation and ventilatory support. Dr. Lambert is following in pulmonology consultation. -S/p tracheostomy on 05/29/18. -Acute kidney injury on chronic kidney disease. Started on HD this admission. Dr. Mckeon is following in nephrology consultation. -Anemia of chronic inflammation, stool for OB is negative, status post blood transfusion. Continue Epogen. -Metabolic acidosis, resolved. -Acute diastolic congestive heart failure. -Paroxysmal atrial fibrillation -COPD -Dysphagia with PEG. -G-tube mild malfunction, changed by GI Dr. Carolina is following in gastroenterology consultation. -Obesity Result Diagram: 06/05/18 0706 06/05/18 0706 Subjective 24 Hr Interval Summary Free Text/Dictation Patient is sedated, on vent Exam/Review of Systems Exam Vitals Vital Signs Date Temp Pulse Resp B/P (MAP) Pulse Ox O2 O2 Flow FiO2 Time Delivery Rate 06/08/18 122 24 100 30 11:12 06/08/18 99.0 154/87 10:54 (109) 06/05/18 Mechanical 16:14 Ventilator Trach Collar Intake and Output 06/07/18 06/07/18 06/08/18 1515:00 23:00 07:00 IntakeIntake Total 620 ml 620 ml OutputOutput Total 700 ml 1000 ml BalanceBalance -80 ml -380 ml Constitutional: well developed Head: normocephalic, atraumatic Neck: supple Respiratory: diminished breath sounds Cardiovascular: regular rate and rhythm Gastrointestinal: soft, non-tender Extremities: normal pulses Medications Medication Current Medications IV Flush (NS 10 ml) 10 ml PRN IV ; Start 05/06/18 at 20:30 Ascorbic Acid (Vitamin C) 500 mg DAILY GTB Last administered on 06/08/18 09:15; Admin Dose 500 MG; Start 05/07/18 at 09:00 Albuterol/ Ipratropium (Duoneb) 3 ml Q2H RESP THERAPY PRN HHN SHORTNESS OF BREATH; Start 05/06/18 at 23:30 Zinc Sulfate (Zinc Sulfate) 220 mg DAILY GTB Last administered on 06/08/18 09:16; Admin Dose 220 MG; Start 05/07/18 at 09:00 Ondansetron HCl (Zofran Tab) 4 mg Q6H PRN GTB NAUSEA AND/OR VOMITING Last administered on 05/31/18 16:47; Admin Dose 4 MG; Start 05/07/18 at 00:15 Multivitamins (Multivitamin) 30 ml DAILY GTB Last administered on 06/08/18 09:14; Admin Dose 30 ML; Start 05/07/18 at 09:00 [facility] This patient goldman... PRN PRN XX WOUND CARE; Start 05/09/18 at 17:00 Albuterol (Ventolin Hfa) 4 puff Q6H RESP THERAPY INH Last administered on 06/08/18 08:16; Admin Dose 4 PUFF; Start 05/12/18 at 20:00 Ipratropium [place] (Atrovent Hfa) 4 puff Q6H RESP THERAPY INH Last administered on 06/08/18 08:16; Admin Dose 4 PUFF; Start 05/12/18 at 20:00 Heparin Sodium (Porcine) (Heparin (1000 Units/ml)) 2,800 unit AFTER DIALYSIS CATHETER Last administered on 05/29/18 18:24; Admin Dose 2,800 UNIT; Start 05/16/18 at 16:30 Furosemide (Lasix) 40 mg BID DIURETICS IV Last administered on 06/08/18 05:56; Admin Dose 40 MG; Start 05/19/18 at 09:00 Epoetin Zen-epbx (RETACRIT(esrd)) 20,000 unit Tu@1700 SC Last administered on 06/02/18 17:06; Admin Dose 20,000 UNIT; Start 05/19/18 at 17:00 Spironolactone (Aldactone) 50 mg DAILY GTB Last administered on 06/08/18 09:15; Admin Dose 50 MG; Start 05/21/18 at 09:00 Metolazone (Zaroxolyn) 5 mg DAILY@0600 PO Last administered on 05/28/18 05:48; Admin Dose 5 MG; Start 05/22/18 at 09:00; Status Hold Famotidine (Pepcid) 20 mg DAILY PEG Last administered on 06/08/18 09:16; Admin Dose 20 MG; Start 05/23/18 at 09:00 Morphine Sulfate (morphine) 6 mg Q4H PRN PEG SEVERE PAIN LEVEL 7-10 Last administered on 06/05/18 11:35; Admin Dose 6 MG; Start 05/22/18 at 17:00 Albumin Human 100 ml @ 100 mls/hr DURING DIALYSIS PRN IV hypotension on hd Last administered on 05/29/18 14:49; Admin Dose 100 MLS/HR; Start 05/27/18 at 07:30 Cholestyramine Resin (Questran Light) 4 gm 0600,1200,1800,2300 PO Last adminis tered on 06/08/18 05:56; Admin Dose 4 GM; Start 05/27/18 at 18:00 Lorazepam (Ativan) 0.5 mg Q4H PRN IV ANXIETY; Start 05/30/18 at 12:00 Acetaminophen (Tylenol Tab) 650 mg Q4H PRN PO MILD PAIN(1-3)OR ELEVATED TEMP Last administered on 06/04/18 20:40; Admin Dose 650 MG; Start 05/31/18 at 13:00 Metoclopramide HCl (Reglan) 5 mg Q6 IV Last administered on 06/08/18 05:56; Admin Dose 5 MG; Start 05/31/18 at 13:00 Collagenase (Santyl) 1 applic DAILY TOP Last administered on 06/08/18 09:15; Admin Dose 1 APPLIC; Start 06/01/18 at 09:00 Amiodarone HCl (Cordarone) 200 mg BID PO Last administered on 06/08/18 09:15; Admin Dose 200 MG; Start 06/01/18 at 21:00 Metoprolol Tartrate (Lopressor) 50 mg Q8 GTB Last administered on 06/08/18at 05:57; Admin Dose 50 MG; Start 06/01/18 at 14:30 Clonidine (Catapres) 0.1 mg Q6H PRN PO ELEVATED BLOOD PRESSURE; Start 06/03/18 at 03:30 Miscellaneous Information (*Order Clarification Bulletin) MEDICATION REQUIRES CLARIFICATI... Q8H XX ; Start 06/05/18 at 21:00 Citric Acid/ Sodium Citrate (Bicitra) 30 ml TID PO Last administered on 06/08/18at 09:14; Admin Dose 30 ML; Start 06/06/18 at 13:00 Vancomycin HCl (Vancomycin Oral Syringe) 250 mg Q8 PO Last administered on 06/08/18at 05:57; Admin Dose 250 MG; Start 06/06/18 at 22:00 STEPHANIE BAL Jun 08, 2018 13:21
--- NOTE | 2018-06-08 13:30 | CONS ---
Assessment/Plan Assessment/Plan Hospital Course (Demo Recall) Septic as well as hemorrhagic shock-improving Acute respiratory failure status post intubation Acute blood loss anemia Septic shock and hemorrhagic shock History of respiratory failure status post decannulation Preserved ejection fraction echocardiogram 05/10/2018 Paroxysmal atrial fibrillation Acute kidney injury -Patient recurrent with atrial fibrillation, increase amiodarone, increase dose of beta-tin -Vent management as per pulmonary -Fluid management and electrolytes as per renal -Antibiotics as per infectious disease -No anticoagulation given recurrent anemia requiring blood transfusions Consultation Date/Type/Reason Admit Date/Time May 06, 2018 at 17:38 Initial Consult Date 05/10/18 Type of Consult Cardiology Requesting Provider: ROLAND GIRON MD Date/Time of Note DATE: 06/08/18 TIME: 13:28 24 HR Interval Summary Free Text/Dictation Patient seen and examined, denies shortness of breath Exam/Review of Systems Vital Signs Vitals Vital Signs Date Temp Pulse Resp B/P (MAP) Pulse Ox O2 O2 Flow FiO2 Time Delivery Rate 06/08/18 122 24 100 30 11:12 06/08/18 99.0 154/87 10:54 (109) 06/05/18 Mechanical 16:14 Ventilator Trach Collar Intake and Output 06/07/18 06/07/18 06/08/18 1515:00 23:00 07:00 IntakeIntake Total 620 ml 620 ml OutputOutput Total 700 ml 1000 ml BalanceBalance -80 ml -380 ml Exam Constitutional: alert (Following commands, no apparent distress) Head: normocephalic Neck: other (Tracheostomy) Respiratory: other (Coarse breath sounds bilaterally, no wheezing) Cardiovascular: irregular rhythm, other (S1-S2 heard) Gastrointestinal: soft, non-tender, bowel sounds Extremities: edema Labs Result Diagram: 06/05/18 0706 06/05/18 0706 Medications Medications Current Medications IV Flush (NS 10 ml) 10 ml PRN IV ; Start 05/06/18 at 20:30 Ascorbic Acid (Vitamin C) 500 mg DAILY GTB Last administered on 06/08/18at 09:15; Admin Dose 500 MG; Start 05/07/18 at 09:00 Albuterol/ Ipratropium (Duoneb) 3 ml Q2H RESP THERAPY PRN HHN SHORTNESS OF B REATH; Start 05/06/18 at 23:30 Zinc Sulfate (Zinc Sulfate) 220 mg DAILY GTB Last administered on 06/08/18 09:16; Admin Dose 220 MG; Start 05/07/18 at 09:00 Ondansetron HCl (Zofran Tab) 4 mg Q6H PRN GTB NAUSEA AND/OR VOMITING Last administered on 05/31/18 16:47; Admin Dose 4 MG; Start 05/07/18 at 00:15 Multivitamins (Multivitamin) 30 ml DAILY GTB Last administered on 06/08/18 09:14; Admin Dose 30 ML; Start 05/07/18 at 09:00 Miscellaneous Information (Pending [facility] Order For Wound Care) This patient goldman... PRN PRN XX WOUND CARE; Start 05/09/18 at 17:00 Albuterol (Ventolin Hfa) 4 puff Q6H RESP THERAPY INH Last administered on 06/08/18 08:16; Admin Dose 4 PUFF; Start 05/12/18 at 20:00 Ipratropium [place] (Atrovent Hfa) 4 puff Q6H RESP THERAPY INH Last administered on 06/08/18 08:16; Admin Dose 4 PUFF; Start 05/12/18 at 20:00 Heparin Sodium (Porcine) (Heparin (1000 Units/ml)) 2,800 unit AFTER DIALYSIS CATHETER Last administered on 05/29/18 18:24; Admin Dose 2,800 UNIT; Start 05/16/18 at 16:30 Furosemide (Lasix) 40 mg BID DIURETICS IV Last administered on 06/08/18 05:56; Admin Dose 40 MG; Start 05/19/18 at 09:00 Epoetin Zen-epbx (RETACRIT(esrd)) 20,000 unit Tu@1700 SC Last administered on 06/02/18 17:06; Admin Dose 20,000 UNIT; Start 05/19/18 at 17:00 Spironolactone (Aldactone) 50 mg DAILY GTB Last administered on 06/08/18 09:15; Admin Dose 50 MG; Start 05/21/18 at 09:00 Metolazone (Zaroxolyn) 5 mg DAILY@0600 PO Last administered on 05/28/18 05:48; Admin Dose 5 MG; Start 05/22/18 at 09:00; Status Hold Famotidine (Pepcid) 20 mg DAILY PEG Last administered on 06/08/18 09:16; Admin Dose 20 MG; Start 05/23/18 at 09:00 Morphine Sulfate (morphine) 6 mg Q4H PRN PEG SEVERE PAIN LEVEL 7-10 Last administered on 06/05/18 11:35; Admin Dose 6 MG; Start 05/22/18 at 17:00 Albumin Human 100 ml @ 100 mls/hr DURING DIALYSIS PRN IV hypotension on hd Last administered on 05/29/18 14:49; Admin Dose 100 MLS/HR; Start 05/27/18 at 07:30 Cholestyramine Resin (Questran Light) 4 gm 0600,1200,1800,2300 PO Last administered on 06/08/18 05:56; Admin Dose 4 GM; Start 05/27/18 at 18:00 Lorazepam (Ativan) 0.5 mg Q4H PRN IV ANXIETY; Start 05/30/18 at 12:00 Acetaminophen (Tylenol Tab) 650 mg Q4H PRN PO MILD PAIN(1-3)OR ELEVATED TEMP Last administered on 06/04/18 20:40; Admin Dose 650 MG; Start 05/31/18 at 13:00 Metoclopramide HCl (Reglan) 5 mg Q6 IV Last administered on 06/08/18 05:56; Admin Dose 5 MG; Start 05/31/18 at 13:00 Collagenase (Santyl) 1 applic DAILY TOP Last administered on 06/08/18 09:15; Admin Dose 1 APPLIC; Start 06/01/18 at 09:00 Amiodarone HCl (Cordarone) 200 mg BID PO Last administered on 06/08/18 09:15; Admin Dose 200 MG; Start 06/01/18 at 21:00 Metoprolol Tartrate (Lopressor) 50 mg Q8 GTB Last administered on 06/08/18 05:57; Admin Dose 50 MG; Start 06/01/18 at 14:30 Clonidine (Catapres) 0.1 mg Q6H PRN PO ELEVATED BLOOD PRESSURE; Start 06/03/18 at 03:30 Miscellaneous Information (*Order Clarification Bulletin) MEDICATION REQUIRES CLARIFICATI... Q8H XX ; Start 06/05/18 at 21:00 Citric Acid/ Sodium Citrate (Bicitra) 30 ml TID PO Last administered on 06/08/18at 09:14; Admin Dose 30 ML; Start 06/06/18 at 13:00 Vancomycin HCl (Vancomycin Oral Syringe) 250 mg Q8 PO Last administered on 06/08/18at 05:57; Admin Dose 250 MG; Start 06/06/18 at 22:00 Evangelista Scanlon DO Jun 08, 2018 13:30
[2018-06-08] MEDS: METOPROLOL 25 MG TAB GTB SCH ×2 (14:12→22:38)
--- NOTE | 2018-06-08 14:45 | CONS ---
Consult Date/Type/Reason Admit Date/Time May 06, 2018 at 17:38 Initial Consult Date 05/10/18 Type of Consult Pulmonary Requesting Provider: ROLAND GIRON MD Date/Time of Note DATE: 06/08/18 TIME: 14:42 Subjective stable. Objective Vital Signs Date Temp Pulse Resp B/P (MAP) Pulse Ox O2 O2 Flow FiO2 Time Delivery Rate 06/08/18 126 24 100 30 14:29 06/08/18 99.0 154/87 10:54 (109) 06/05/18 Mechanical 16:14 Ventilator Trach Collar Intake and Output 06/07/18 06/07/18 06/08/18 1515:00 23:00 07:00 IntakeIntake Total 620 ml 620 ml OutputOutput Total 700 ml 1000 ml BalanceBalance -80 ml -380 ml Exam GENERAL: Elderly appearing lady continues mechanical ventilation via tracheostomy VITAL SIGNS: per chart NECK: Supple. No JVD or lymphadenopathy. CARDIAC EXAM: S1, S2. No added sounds or murmurs. CHEST: Diminished air entry bilaterally ABDOMEN: Soft, nontender. No guarding or rebound. EXTREMITIES: No cyanosis, clubbing edema +1 NEUROLOGIC: Generalized weakness. Vent Setting Ventilator Support Mode: AC Fraction of Inspired Oxygen pe: 30 Positive End Expiratory Pressu: 5.0 Results/Medications Result Diagram: 06/05/18 0706 06/05/18 0706 Medications Current Medications IV Flush (NS 10 ml) 10 ml PRN IV ; Start 05/06/18 at 20:30 Ascorbic Acid (Vitamin C) 500 mg DAILY GTB Last administered on 06/08/18at 09:15; Admin Dose 500 MG; Start 05/07/18 at 09:00 Albuterol/ Ipratropium (Duoneb) 3 ml Q2H RESP THERAPY PRN HHN SHORTNESS OF BREATH; Start 05/06/18 at 23:30 Zinc Sulfate (Zinc Sulfate) 220 mg DAILY GTB Last administered on 06/08/18at 09:16; Admin Dose 220 MG; Start 05/07/18 at 09:00 Ondansetron HCl (Zofran Tab) 4 mg Q6H PRN GTB NAUSEA AND/OR VOMITING Last administered on 05/31/18at 16:47; Admin Dose 4 MG; Start 05/07/18 at 00:15 Multivitamins (Multivitamin) 30 ml DAILY GTB Last administered on 06/08/18 09:14; Admin Dose 30 ML; Start 05/07/18 at 09:00 [facility] This patient goldman... PRN PRN XX WOUND CARE; Start 05/09/18 at 17:00 Albuterol (Ventolin Hfa) 4 puff Q6H RESP THERAPY INH Last administered on 06/08/18 14:28; Admin Dose 4 PUFF; Start 05/12/18 at 20:00 Ipratropium [place] (Atrovent Hfa) 4 puff Q6H RESP THERAPY INH Last administered on 06/08/18 14:28; Admin Dose 4 PUFF; Start 05/12/18 at 20:00 Heparin Sodium (Porcine) (Heparin (1000 Units/ml)) 2,800 unit AFTER DIALYSIS CATHETER Last administered on 05/29/18 18:24; Admin Dose 2,800 UNIT; Start 05/16/18 at 16:30 Furosemide (Lasix) 40 mg BID DIURETICS IV Last administered on 06/08/18 05:56; Admin Dose 40 MG; Start 05/19/18 at 09:00 Epoetin Zen-epbx (RETACRIT(esrd)) 20,000 unit Tu@1700 SC Last administered on 06/02/18 17:06; Admin Dose 20,000 UNIT; Start 05/19/18 at 17:00 Spironolactone (Aldactone) 50 mg DAILY GTB Last administered on 06/08/18 09:15; Admin Dose 50 MG; Start 05/21/18 at 09:00 Metolazone (Zaroxolyn) 5 mg DAILY@0600 PO Last administered on 05/28/18 05:48; Admin Dose 5 MG; Start 05/22/18 at 09:00; Status Hold Famotidine (Pepcid) 20 mg DAILY PEG Last administered on 06/08/18 09:16; Admin Dose 20 MG; Start 05/23/18 at 09:00 Morphine Sulfate (morphine) 6 mg Q4H PRN PEG SEVERE PAIN LEVEL 7-10 Last administered on 06/05/18 11:35; Admin Dose 6 MG; Start 05/22/18 at 17:00 Albumin Human 100 ml @ 100 mls/hr DURING DIALYSIS PRN IV hypotension on hd Last administered on 05/29/18 14:49; Admin Dose 100 MLS/HR; Start 05/27/18 at 07:30 Cholestyramine Resin (Questran Light) 4 gm 0600,1200,1800,2300 PO Last administered on 06/08/18 14:12; Admin Dose 4 GM; Start 05/27/18 at 18:00 Lorazepam (Ativan) 0.5 mg Q4H PRN IV ANXIETY; Start 05/30/18 at 12:00 Acetaminophen (Tylenol Tab) 650 mg Q4H PRN PO MILD PAIN(1-3)OR ELEVATED TEMP Last administered on 06/04/18 20:40; Admin Dose 650 MG; Start 05/31/18 at 13:00 Metoclopramide HCl (Reglan) 5 mg Q6 IV Last administered on 06/08/18 13:28; Admin Dose 5 MG; Start 05/31/18 at 13:00 Collagenase (Santyl) 1 applic DAILY TOP Last administered on 06/08/18 09:15; Admin Dose 1 APPLIC; Start 06/01/18 at 09:00 Clonidine (Catapres) 0.1 mg Q6H PRN PO ELEVATED BLOOD PRESSURE; Start 06/03/18 at 03:30 Miscellaneous Information (*Order Clarification Bulletin) MEDICATION REQUIRES CLARIFICATI... Q8H XX ; Start 06/05/18 at 21:00 Citric Acid/ Sodium Citrate (Bicitra) 30 ml TID PO Last administered on 06/08/18 13:28; Admin Dose 30 ML; Start 06/06/18 at 13:00 Vancomycin HCl (Vancomycin Oral Syringe) 250 mg Q8 PO Last administered on 06/08/18 14:11; Admin Dose 250 MG; Start 06/06/18 at 22:00 Amiodarone HCl (Cordarone) 200 mg Q8 PO Last administered on 06/08/18 14:11; Admin Dose 200 MG; Start 06/08/18 at 14:00 Metoprolol Tartrate (Lopressor) 75 mg Q8 GTB Last administered on 06/08/18 14:12; Admin Dose 75 MG; Start 06/08/18 at 14:00 Assessment/Plan Hospital Course (Demo Recall) Assessment 1. Hypoxemic respiratory failure failed multiple weaning trials 2. History of pulmonary fibrosis 3. Anemia questionable GI bleed 4. History of renal failure on hemodialysis 5. Decubitus ulcers Plan 1. Continue mechanical ventilation via tracheostomy. 2. Continue tube feeding 3. Continue wound care DC to group home facility? LAURA JENKINS MD, [facility] Jun 08, 2018 14:45
--- NOTE | 2018-06-08 14:45 | CONS ---
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 colonization of the airway by pseudomonas and ESBL+klebsiella - h/o possible, recurrent HCAP due to pseudomonas and ESBL+klebsiella - h/o recurrent HCAP due to MRSA and Enterobacter (culture of tracheal aspirate on 07/16/2017 that was collected at [facility]) . Pt took vancomycin and ceftazidime - h/o decannulation prior to admission - h/o tracheostomy on 06/11/2017 - h/o SIRS from UGIB in 2018 - h/o thoracentesis on 07/18/2017, transudative (protein <2, LDH 279) - h/o bleeding from the trach site in 2018 - h/o septic shock due to pneumonia, ARDS, bacteremia, fungemia in 2018 - h/o ARDS in 2018 - h/o smoking - COPD - h/o ILD per medical record - h/o PAF, improved # GI - C diff colitis, diagnosed on 05/11/2018 - h/o intermittent diarrhea, Pt had multiple negative C. diff tests at [facility] at [facility] in the past; none was positive until 05/11/2018 - dysphagia - h/o PEG placement 06/13/2018 - protein calorie malnutrition - h/o coffee ground emesis/UGIB on 12/23/2017 due to deep ulceration of distal esophagus and gastritis on EGD 12/26/2017. No e/o H. pylori - h/o possible appendicitis on CT on 11/22/2017, Pt took ertapenem (11/24/2017- 12/01/2017) - h/o extensive adhesions lower abdominal and pelvis between small bowel to each other and to colon and to abdominal wall, anterior pelvic wall chronic abscess secondary to probably an old perforated diverticulitis, torsion of small bowel around these dense adhesion causing multiple obstructive points - h/o laparoscopic exploration and extensive lysis of adhesions and drainage of anterior pelvic wall abscess 09/16/2017. Cultures were negative, no e/o malignancy. Pt took pip/tazo (09/16/2017-09/26/2017) - h/o EGD and exchange of PEG on 09/01/2017 - h/o partial obstruction mid jejunum in L anterior central pelvis with suggestion of a 3 cm soft tissue mass on CT 08/28/2017 - h/o internal stomal deep ulcer behind the internal bumper, gastritis and esophagitis, Rodriguez's cannot be ruled out, per EGD with biopsy 07/23/2017 - h/o GIB s/p flex sig showed polyp; stool OB negative on 06/29/17 - h/o stool OB positive status - h/o SBO and ileus due to pain meds - h/o mildly elevated CEA # renal/ - anasarca - started on HD on 05/15/2018, via Juan in R groin - recurrent NATHAN on CKD - 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 Her strain of CRE was sensitive to colistin, Avycaz, and Vabomere but resistant to Zerbaxa (reported on 05/19/2018) - Hyponatremia - Hyperkalemia, now hypokalemia - Metabolic acidosis - adrenal insufficiency - h/o vaginal bleed in 2018 - h/o colonization of urinary tract by ESBL+klebsiella, VRE - h/o recurrent, symptomatic UTI due to carbapenem-resistant kleb (MDR strain) per urine culture 10/04/17, 10/09/17, 10/21/2017, P took colistin (10/09/2017- 10/15/2017), fosfomycin for carbapenemase-producing klebsiella and VRE on 10/25/2017 and 10/28/2017 - h/o funguria - h/o urinary retention # fungemia, bacteremia 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 improved. Probable manifestation of endocarditis. Pt declined MRI on 08/06/2017 - h/o infection of R toes due to pseudomonas. coagulase negative Staph likely a colonizer - h/o intertrigo of the groin, resolved with nystatin powder - h/o scabies, locally crusted lesion over L scapula, s/p permethrin cream and pGT ivermectin on 08/11/2017, 08/12/2017, 08/19/2017. Repeat skin scraping on 08/21/2017 was negative for scabies # psych, neuro - acute toxic metabolic encephalopathy - improving - decreased hearing b/l - h/o critical illness polyneuropathy - anxiety/depression, bipolar d/o, seen by Psychiatry in the past - chronic pain syndrome - h/o medical non-compliance: she would refuse her medications, treatment and straight catheterization in 2018 # hematological, vascular - chronic anemia requiring blood transfusion intermittently - Macrocytic anemia - 3.1 cm AAA on imaging - PVD Recommendations: - monitor wbc curve closely; avoid additional abx at this time - monitor/trend fever curve closely - continue pGT tid vancomycin (05/11/2018-) for C. diff colitis; s/p IV metronidazole (05/11/2018-05/29/2018; restart 05/30/2018-06/05/18); Pt completed m eropenem for HCAP (05/13/2018-05/19/2018) - then will start slow tapering next week: 06/15/2018-06/21/2018 bid, 06/22-06/28: daily, 06/29-07/05: q48hrs - change Garza catheter - management d/w PT's RN Torres Consultation Date/Type/Reason Admit Date/Time May 06, 2018 at 17:38 Initial Consult Date 05/10/18 Type of Consult ID Requesting Provider: ROLAND GIRON MD Date/Time of Note DATE: 06/08/18 TIME: 14:40 24 HR Interval Summary Subjective hx not possible: pt non-verbal Constitutional: no complaints Detailed Summary Eyes: no complaints ENT: no complaints Respiratory: no complaints Cardiovascular: no complaints Gastrointestinal: no complaints, other (+rectal tube) Genitourinary: other (+FC collecting white yellow urine) Musculoskeletal: restricted range of motion Skin: no complaints Neurologic: other (bed bound, functional quadriplegia) Exam/Review of Systems Exam Vitals Vital Signs Date Temp Pulse Resp B/P (MAP) Pulse Ox O2 O2 Flow FiO2 Time Delivery Rate 06/08/18 126 24 100 30 14:29 06/08/18 99.0 154/87 10:54 (109) 06/05/18 Mechanical 16:14 Ventilator Trach Collar Intake and Output 06/07/18 06/07/18 06/08/18 1515:00 23:00 07:00 IntakeIntake Total 620 ml 620 ml OutputOutput Total 700 ml 1000 ml BalanceBalance -80 ml -380 ml Constitutional: non-verbal, frail Psych: no complaints, anxiety Head: normocephalic, atraumatic Eyes: nl conjunctiva, nl lids, nl sclera ENMT: nl external ears & nose, nl nasal mucosa & septum, mucosa pink and moist Neck: other (trach) Respiratory: crackles/rales Cardiovascular: regular rate and rhythm, nl pulses Gastrointestinal: soft, other (+PEG); No non-tender Genitourinary - Female: other (+FC collecting white yellow urine) Musculoskeletal: nl extremities to inspection Extremities: No edema Neurological: lethargic Skin: ecchymosis, other (eschar of fingers, R dorsal hand) Results Result Diagram: 06/05/18 0706 06/05/18 0706 Medications Medication Current Medications IV Flush (NS 10 ml) 10 ml PRN IV ; Start 05/06/18 at 20:30 Ascorbic Acid (Vitamin C) 500 mg DAILY GTB Last administered on 06/08/18at 09:15; Admin Dose 500 MG; Start 05/07/18 at 09:00 Albuterol/ Ipratropium (Duoneb) 3 ml Q2H RESP THERAPY PRN HHN SHORTNESS OF BREATH; Start 05/06/18 at 23:30 Zinc Sulfate (Zinc Sulfate) 220 mg DAILY GTB Last administered on 06/08/18 09:16; Admin Dose 220 MG; Start 05/07/18 at 09:00 Ondansetron HCl (Zofran Tab) 4 mg Q6H PRN GTB NAUSEA AND/OR VOMITING Last ad ministered on 05/31/18 16:47; Admin Dose 4 MG; Start 05/07/18 at 00:15 Multivitamins (Multivitamin) 30 ml DAILY GTB Last administered on 06/08/18 09:14; Admin Dose 30 ML; Start 05/07/18 at 09:00 Miscellaneous Information (Pending Santyl Order For Wound Care) This patient goldman... PRN PRN XX WOUND CARE; Start 05/09/18 at 17:00 Albuterol (Ventolin Hfa) 4 puff Q6H RESP THERAPY INH Last administered on 06/08/18 14:28; Admin Dose 4 PUFF; Start 05/12/18 at 20:00 Ipratropium [place] (Atrovent Hfa) 4 puff Q6H RESP THERAPY INH Last administered on 06/08/18 14:28; Admin Dose 4 PUFF; Start 05/12/18 at 20:00 Heparin Sodium (Porcine) (Heparin (1000 Units/ml)) 2,800 unit AFTER DIALYSIS CATHETER Last administered on 05/29/18 18:24; Admin Dose 2,800 UNIT; Start 05/16/18 at 16:30 Furosemide (Lasix) 40 mg BID DIURETICS IV Last administered on 06/08/18 05:56; Admin Dose 40 MG; Start 05/19/18 at 09:00 Epoetin Zen-epbx (RETACRIT(esrd)) 20,000 unit Tu@1700 SC Last administered on 06/02/18 17:06; Admin Dose 20,000 UNIT; Start 05/19/18 at 17:00 Spironolactone (Aldactone) 50 mg DAILY GTB Last administered on 06/08/18 09:15; Admin Dose 50 MG; Start 05/21/18 at 09:00 Metolazone (Zaroxolyn) 5 mg DAILY@0600 PO Last administered on 05/28/18 05:48; Admin Dose 5 MG; Start 05/22/18 at 09:00; Status Hold Famotidine (Pepcid) 20 mg DAILY PEG Last administered on 06/08/18 09:16; Admin Dose 20 MG; Start 05/23/18 at 09:00 Morphine Sulfate (morphine) 6 mg Q4H PRN PEG SEVERE PAIN LEVEL 7-10 Last a dministered on 06/05/18 11:35; Admin Dose 6 MG; Start 05/22/18 at 17:00 Albumin Human 100 ml @ 100 mls/hr DURING DIALYSIS PRN IV hypotension on hd Last administered on 05/29/18 14:49; Admin Dose 100 MLS/HR; Start 05/27/18 at 07:30 Cholestyramine Resin (Questran Light) 4 gm 0600,1200,1800,2300 PO Last administered on 06/08/18 14:12; Admin Dose 4 GM; Start 05/27/18 at 18:00 Lorazepam (Ativan) 0.5 mg Q4H PRN IV ANXIETY; Start 05/30/18 at 12:00 Acetaminophen (Tylenol Tab) 650 mg Q4H PRN PO MILD PAIN(1-3)OR ELEVATED TEMP Last administered on 06/04/18 20:40; Admin Dose 650 MG; Start 05/31/18 at 13:00 Metoclopramide HCl (Reglan) 5 mg Q6 IV Last administered on 06/08/18 13:28; Admin Dose 5 MG; Start 05/31/18 at 13:00 Collagenase (Santyl) 1 applic DAILY TOP Last administered on 06/08/18 09:15; Admin Dose 1 APPLIC; Start 06/01/18 at 09:00 Clonidine (Catapres) 0.1 mg Q6H PRN PO ELEVATED BLOOD PRESSURE; Start 06/03/18 at 03:30 Miscellaneous Information (*Order Clarification Bulletin) MEDICATION REQUIRES CLARIFICATI... Q8H XX ; Start 06/05/18 at 21:00 Citric Acid/ Sodium Citrate (Bicitra) 30 ml TID PO Last administered on 4/22/19at 13:28; Admin Dose 30 ML; Start 06/06/18 at 13:00 Vancomycin HCl (Vancomycin Oral Syringe) 250 mg Q8 PO Last administered on 06/08/18at 14:11; Admin Dose 250 MG; Start 06/06/18 at 22:00 Amiodarone HCl (Cordarone) 200 mg Q8 PO Last administered on 06/08/18at 14:11; Admin Dose 200 MG; Start 06/08/18 at 14:00 Metoprolol Tartrate (Lopressor) 75 mg Q8 GTB Last administered on 06/08/18at 14:12; Admin Dose 75 MG; Start 06/08/18 at 14:00 CELESTINE MURPHY M.D. Jun 08, 2018 14:45
[2018-06-09] VITALS (20 sets, daily range): BP systolic 116–165; BP diastolic 75–95; PULSE 77–115; RESP 16–29
[2018-06-09] MEDS: IPRATROPIUM (HFA) 12.9 GM INHALER INH SCH ×4 (02:29→19:50)
[2018-06-09] MEDS: ALBUTEROL HFA 8 GM INHALER INH SCH ×4 (02:30→19:50)
[2018-06-09] MEDS: [UNRECOGNIZED DRUG - REMARK] XX SCH ×3 (05:00→21:00)
[2018-06-09] MEDS: METOPROLOL 25 MG TAB GTB SCH ×3 (06:39→23:08)
[2018-06-09] MEDS: FUROSEMIDE 40 MG INJ IV SCH ×2 (06:39→17:11)
[2018-06-09] MEDS: AMIODARONE 200 MG TAB PO SCH ×3 (06:40→23:08)
[2018-06-09] MEDS: CHOLESTYRAMINE (LIGHT) 4 GM PACKET PO SCH ×4 (06:40→23:08)
[2018-06-09] MEDS: METOCLOPRAMIDE 10 MG INJ IV SCH ×4 (06:40→17:10)
[2018-06-09] MEDS: VANCOMYCIN HCL 250 MG/5ML POSYG PO SCH ×3 (06:41→23:08)
[2018-06-09] MEDS: MULTIVITAMINS 30 ML CUP GTB SCH (08:42)
[2018-06-09] MEDS: CITRIC ACID/NA CITRATE 30 ML CUP PO SCH ×3 (08:42→23:07)
[2018-06-09] MEDS: SPIRONOLACTONE 25 MG TAB GTB SCH (08:43)
[2018-06-09] MEDS: COLLAGENASE 5 GM (UD JAR) TOP SCH (08:43)
[2018-06-09] MEDS: ASCORBIC ACID 500 MG TAB GTB SCH (08:43)
[2018-06-09] MEDS: BALSAM PERU/CASTOR OIL 60 GM TUBE TOP SCH ×2 (08:43→21:00)
[2018-06-09] MEDS: FAMOTIDINE 20 MG TAB PEG SCH (08:43)
[2018-06-09] MEDS: ZINC SULFATE 220 MG CAP GTB SCH (08:43)
--- NOTE | 2018-06-09 08:58 | PN ---
DATE: 06/09/2018 SUBJECTIVE: The patient is stable, no events overnight. No fevers, chills, nausea, or vomiting. OBJECTIVE: VITAL SIGNS: Blood pressure is 164/94, respirations 23, pulse 115, temperature 98.6. HEENT: Head is normocephalic. NECK: Supple. HEART: Regular rate. LUNGS: Show diminished breath sounds at the base. ABDOMEN: Soft, nontender to palpation. No rebound or guarding. EXTREMITIES: Negative for clubbing, cyanosis. Trace edema. DERMATOLOGIC: No rashes. MUSCULOSKELETAL: No joint effusion. NEUROLOGIC: No change in exam. MEDICATIONS: Reviewed. LABORATORY DATA: From 06/09/2018 was reviewed. ASSESSMENT AND PLAN: 1. Nonoliguric acute kidney injury on top of chronic kidney disease with previous baseline creatinin e around of 2 to 2.5 mg/dL. Etiology of acute kidney injury is secondary to acute tubular necrosis. The patient is status post hemodialysis. Renal function is improved. Currently, creatinine is belo w previous baseline. We will continue current treatment plan, supportive care, renally dose all medi cines. 2. Volume overload secondary to congestive heart failure, acute kidney injury, chronic kidney diseas e. The patient is clinically improving. Continue current diuretic regimen. 3. Hypernatremia. The patient has a free water deficit of approximately 2.5 liters. We will give t he patient 1 liter of D5 water. We will start free water flushes 200 mL q.4h. Monitor sodium levels closely. 4. Hypokalemia. Continue to monitor and replete as needed. 5. Metabolic acidosis, improving. Continue Bicitra. 6. Anemia. Continue to monitor hemoglobin and hematocrit levels. Continue Epogen. 7. Mineral bone disorder, monitor calcium and phosphorus levels. 8. Ventilator-dependent respiratory failure. Vent settings and ABG was reviewed. Continue to monit or. 9. Sepsis, status post shock. Continue current antibiotic regimen. 10. Dysphagia. Continue tube feeding. 11. Acute encephalopathy, etiology is toxic metabolic. 12. Lower extremity wounds. Continue wound care. Dictated By: JEANA BANSAL DO NR/NTS Conf#: [id number] DID#: [id number] CC: ROLAND GIRON MD; QUINTEN UMAÑA MD;*EndCC*
[2018-06-09] MEDS ORDERED: DEXTROSE 5% 1,000 ML IV ONE (09:00)
--- NOTE | 2018-06-09 13:10 | CONS ---
Assessment/Plan Assessment/Plan Hospital Course (Demo Recall) Septic as well as hemorrhagic shock-improving Acute respiratory failure status post intubation Acute blood loss anemia Septic shock and hemorrhagic shock History of respiratory failure status post decannulation Preserved ejection fraction echocardiogram 05/10/2018 Paroxysmal atrial fibrillation Acute kidney injury -Patient with paroxysmal atrial fibrillation, has remained sinus after increased beta-tin and amiodarone yesterday -Vent management as per pulmonary -Fluid management and electrolytes as per renal -Antibiotics as per infectious disease -No anticoagulation given recurrent anemia requiring blood transfusions Consultation Date/Type/Reason Admit Date/Time May 06, 2018 at 17:38 Initial Consult Date 05/10/18 Type of Consult Cardiology Requesting Provider: ROLAND GIRON MD Date/Time of Note DATE: 06/09/18 TIME: 13:09 24 HR Interval Summary Free Text/Dictation Denies shortness of breath, palpitations Exam/Review of Systems Vital Signs Vitals Vital Signs Date Temp Pulse Resp B/P (MAP) Pulse Ox O2 O2 Flow FiO2 Time Delivery Rate 06/09/18 89 12:01 06/09/18 98.6 20 165/76 99 Mechanical 10:51 (105) Ventilator 06/09/18 30 08:42 Intake and Output 06/08/18 06/08/18 06/09/18 1515:00 23:00 07:00 IntakeIntake Total 675 ml OutputOutput Total 220 ml BalanceBalance 455 ml Exam Constitutional: alert (Following commands, no apparent distress) Head: normocephalic Neck: other (Tracheostomy) Respiratory: other (Coarse breath sounds bilaterally, no wheezing) Cardiovascular: regular rate and rhythm (S1-S2 heard) Gastrointestinal: soft, non-tender, bowel sounds Extremities: edema Labs Result Diagram: 06/09/18 0549 06/09/18 0549 Results 24hrs Laboratory Tests Test 06/09/18 05:49 White Blood Count 15.4 #H Red Blood Count 2.67 L Hemoglobin 8.6 L Hematocrit 29.0 L Mean Corpuscular Volume 108.6 H Mean Corpuscular Hemoglobin 32.2 Mean Corpuscular Hemoglobin Concent 29.7 L Red Cell Distribution Width 22.6 H Platelet Count 416 H Mean Platelet Volume 9.1 Immature Granulocytes % 0.800 H Neutrophils % 83.8 H Lymphocytes % 7.5 L Monocytes % 5.7 Eosinophils % 2.1 Basophils % 0.1 Nucleated Red Blood Cells % 0.0 Immature Granulocytes # 0.130 H Neutrophils # 12.9 H Lymphocytes # 1.2 Monocytes # 0.9 Eosinophils # 0.3 Basophils # 0.0 Nucleated Red Blood Cells # 0.0 Sodium Level 150 H Potassium Level 3.6 Chloride Level 118 H Carbon Dioxide Level 22 Anion Gap 10 Blood Urea Nitrogen 65 H Creatinine 1.95 H Est Glomerular Filtrat Rate mL/min Glucose Level 124 Calcium Level 10.1 Phosphorus Level 3.2 Magnesium Level 2.0 Medications Medications Current Medications IV Flush (NS 10 ml) 10 ml PRN IV ; Start 05/06/18 at 20:30 Ascorbic Acid (Vitamin C) 500 mg DAILY GTB Last administered on 06/09/18 08:43; Admin Dose 500 MG; Start 05/07/18 at 09:00 Albuterol/ Ipratropium (Duoneb) 3 ml Q2H RESP THERAPY PRN HHN SHORTNESS OF BREATH; Start 05/06/18 at 23:30 Zinc Sulfate (Zinc Sulfate) 220 mg DAILY GTB Last administered on 06/09/18 08:43; Admin Dose 220 MG; Start 05/07/18 at 09:00 Ondansetron HCl (Zofran Tab) 4 mg Q6H PRN GTB NAUSEA AND/OR VOMITING Last administered on 05/31/18 16:47; Admin Dose 4 MG; Start 05/07/18 at 00:15 Multivitamins (Multivitamin) 30 ml DAILY GTB Last administered on 06/09/18 08:42; Admin Dose 30 ML; Start 05/07/18 at 09:00 [facility] This patient goldman... PRN PRN XX WOUND CARE; Start 05/09/18 at 17:00 Albuterol (Ventolin Hfa) 4 puff Q6H RESP THERAPY INH Last administered on 06/09/18 07:54; Admin Dose 4 PUFF; Start 05/12/18 at 20:00 Ipratropium [place] (Atrovent Hfa) 4 puff Q6H RESP THERAPY INH Last ad ministered on 06/09/18 07:53; Admin Dose 4 PUFF; Start 05/12/18 at 20:00 Heparin Sodium (Porcine) (Heparin (1000 Units/ml)) 2,800 unit AFTER DIALYSIS CATHETER Last administered on 05/29/18 18:24; Admin Dose 2,800 UNIT; Start 05/16/18 at 16:30 Furosemide (Lasix) 40 mg BID DIURETICS IV Last administered on 06/09/18 06:39; Admin Dose 40 MG; Start 05/19/18 at 09:00 Epoetin Zen-epbx (RETACRIT(esrd)) 20,000 unit Tu@1700 SC Last administered on 06/02/18 17:06; Admin Dose 20,000 UNIT; Start 05/19/18 at 17:00 Spironolactone (Aldactone) 50 mg DAILY GTB Last administered on 06/09/18 08:43; Admin Dose 50 MG; Start 05/21/18 at 09:00 Metolazone (Zaroxolyn) 5 mg DAILY@0600 PO Last administered on 05/28/18 05:48; Admin Dose 5 MG; Start 05/22/18 at 09:00; Status Hold Famotidine (Pepcid) 20 mg DAILY PEG Last administered on 06/09/18 08:43; Admin Dose 20 MG; Start 05/23/18 at 09:00 Morphine Sulfate (morphine) 6 mg Q4H PRN PEG SEVERE PAIN LEVEL 7-10 Last administered on 06/05/18 11:35; Admin Dose 6 MG; Start 05/22/18 at 17:00 Albumin Human 100 ml @ 100 mls/hr DURING DIALYSIS PRN IV hypotension on hd Last administered on 05/29/18 14:49; Admin Dose 100 MLS/HR; Start 05/27/18 at 07:30 Cholestyramine Resin (Questran Light) 4 gm 0600,1200,1800,2300 PO Last administered on 06/09/18 11:01; Admin Dose 4 GM; Start 05/27/18 at 18:00 Lorazepam (Ativan) 0.5 mg Q4H PRN IV ANXIETY; Start 05/30/18 at 12:00 Acetaminophen (Tylenol Tab) 650 mg Q4H PRN PO MILD PAIN(1-3)OR ELEVATED TEMP Last administered on 06/04/18 20:40; Admin Dose 650 MG; Start 05/31/18 at 13:00 Metoclopramide HCl (Reglan) 5 mg Q6 IV Last administered on 06/09/18 11:01; Admin Dose 5 MG; Start 05/31/18 at 13:00 Collagenase (Santyl) 1 applic DAILY TOP Last administered on 06/09/18 08:43; Admin Dose 1 APPLIC; Start 06/01/18 at 09:00 Clonidine (Catapres) 0.1 mg Q6H PRN PO ELEVATED BLOOD PRESSURE; Start 06/03/18 at 03:30 Miscellaneous Information (*Order Clarification Bulletin) MEDICATION REQUIRES CLARIFICATI... Q8H XX ; Start 06/05/18 at 21:00 Citric Acid/ Sodium Citrate (Bicitra) 30 ml TID PO Last administered on 06/09/18 08:42; Admin Dose 30 ML; Start 06/06/18 at 13:00 Vancomycin HCl (Vancomycin Oral Syringe) 250 mg Q8 PO Last administered on 06/09/18 06:41; Admin Dose 250 MG; Start 06/06/18 at 22:00 Amiodarone HCl (Cordarone) 200 mg Q8 PO Last administered on 06/09/18 06:40; Admin Dose 200 MG; Start 06/08/18 at 14:00 Metoprolol Tartrate (Lopressor) 75 mg Q8 GTB Last administered on 06/09/18 06:39; Admin Dose 75 MG; Start 06/08/18 at 14:00 Dextrose 1,000 ml @ 50 mls/hr Q20H ONCE IV Last administered on 06/09/18 11:11; Admin Dose 50 MLS/HR; Start 06/09/18 at 09:00; Stop 06/10/18 at 04:59 Evangelista Scanlon DO Jun 09, 2018 13:10
[2018-06-09] MEDS: morphine LIQ (10 MG/5 ML) CUP PEG PRN (13:59)
[2018-06-09] MEDS: EPOETIN ALFA-EPBX (ESRD) 10,000 UNIT/ML VIAL SC SCH (17:11)
--- NOTE | 2018-06-09 18:42 | PN ---
Date/Time of Note Date/Time of Note DATE: 06/09/18 TIME: 18:41 Assessment/Plan VTE Prophylaxis Risk score (from [facility] [place])>0 risk: 10 SCD applied (from [facility] [place]): Yes SCD contraindicated: other Pharmacological prophylaxis: other Pharm contraindication: other Lines/Catheters IV Catheter Type (from [facility]): PICC Line Central line still needed: Yes Urinary Cath still in place: Yes Reason Cath still needed: urinary retention Assessment/Plan Assessment/Plan -Atrial fibrillation was rapid ventricular response, s/p amiodarone drip. Rate is well controlled on p.o. amiodarone and metoprolol. Dr. Scanlon is following in cardiology consultation. -Septic shock secondary to urinary tract infection, anterior neck soft tissue infection, and C. difficile colitis, resolving. Continue antibiotics per ID. Dr. Doyle is following in infection disease consultation. -Acute respiratory failure requiring intubation and ventilatory support. Dr. Lambert is following in pulmonology consultation. -S/p tracheostomy on 05/29/18. -Acute kidney injury on chronic kidney disease. Started on HD this admission. Dr. Mckeon is following in nephrology consultation. -Anemia of chronic inflammation, stool for OB is negative, status post blood transfusion. Continue Epogen. -Metabolic acidosis, resolved. -Acute diastolic congestive heart failure. -Paroxysmal atrial fibrillation -COPD -Dysphagia with PEG. -G-tube mild malfunction, changed by GI Dr. Carolina is following in gastroenterology consultation. -Obesity Result Diagram: 06/09/18 0549 06/09/18 0549 Results 24hrs Laboratory Tests Test 06/09/18 05:49 White Blood Count 15.4 #H Red Blood Count 2.67 L Hemoglobin 8.6 L Hematocrit 29.0 L Mean Corpuscular Volume 108.6 H Mean Corpuscular Hemoglobin 32.2 Mean Corpuscular Hemoglobin Concent 29.7 L Red Cell Distribution Width 22.6 H Platelet Count 416 H Mean Platelet Volume 9.1 Immature Granulocytes % 0.800 H Neutrophils % 83.8 H Lymphocytes % 7.5 L Monocytes % 5.7 Eosinophils % 2.1 Basophils % 0.1 Nucleated Red Blood Cells % 0.0 Immature Granulocytes # 0.130 H Neutrophils # 12.9 H Lymphocytes # 1.2 Monocytes # 0.9 Eosinophils # 0.3 Basophils # 0.0 Nucleated Red Blood Cells # 0.0 Sodium Level 150 H Potassium Level 3.6 Chloride Level 118 H Carbon Dioxide Level 22 Anion Gap 10 Blood Urea Nitrogen 65 H Creatinine 1.95 H Est Glomerular Filtrat Rate mL/min Glucose Level 124 Calcium Level 10.1 Phosphorus Level 3.2 Magnesium Level 2.0 Subjective 24 Hr Interval Summary Free Text/Dictation - nad -seems comfortable on supplemental oxygen - stable no new events reported last night dw staff Subjective hx not possible: pt non-verbal Constitutional: requiring O2 Exam/Review of Systems Exam Vitals Vital Signs Date Temp Pulse Resp B/P (MAP) Pulse Ox O2 O2 Flow FiO2 Time Delivery Rate 06/09/18 98 23 100 30 17:54 06/09/18 98.5 130/95 Mechanical 16:06 (107) Ventilator Intake and Output 06/08/18 06/08/18 06/09/18 1515:00 23:00 07:00 IntakeIntake Total 675 ml OutputOutput Total 220 ml BalanceBalance 455 ml Constitutional: alert, non-verbal Psych: nl mood/affect Eyes: nl lids ENMT: nl external ears & nose Neck: non-tender, other (trach intact) Respiratory: diminished breath sounds Results Results 24hrs Laboratory Tests Test 06/09/18 05:49 White Blood Count 15.4 #H Red Blood Count 2.67 L Hemoglobin 8.6 L Hematocrit 29.0 L Mean Corpuscular Volume 108.6 H Mean Corpuscular Hemoglobin 32.2 Mean Corpuscular Hemoglobin Concent 29.7 L Red Cell Distribution Width 22.6 H Platelet Count 416 H Mean Platelet Volume 9.1 Immature Granulocytes % 0.800 H Neutrophils % 83.8 H Lymphocytes % 7.5 L Monocytes % 5.7 Eosinophils % 2.1 Basophils % 0.1 Nucleated Red Blood Cells % 0.0 Immature Granulocytes # 0.130 H Neutrophils # 12.9 H Lymphocytes # 1.2 Monocytes # 0.9 Eosinophils # 0.3 Basophils # 0.0 Nucleated Red Blood Cells # 0.0 Sodium Level 150 H Potassium Level 3.6 Chloride Level 118 H Carbon Dioxide Level 22 Anion Gap 10 Blood Urea Nitrogen 65 H Creatinine 1.95 H Est Glomerular Filtrat Rate mL/min Glucose Level 124 Calcium Level 10.1 Phosphorus Level 3.2 Magnesium Level 2.0 Medications Medication Current Medications IV Flush (NS 10 ml) 10 ml PRN IV ; Start 05/06/18 at 20:30 Ascorbic Acid (Vitamin C) 500 mg DAILY GTB Last administered on 06/09/18 08:43; Admin Dose 500 MG; Start 05/07/18 at 09:00 Albuterol/ Ipratropium (Duoneb) 3 ml Q2H RESP THERAPY PRN HHN SHORTNESS OF BREATH; Start 05/06/18 at 23:30 Zinc Sulfate (Zinc Sulfate) 220 mg DAILY GTB Last administered on 06/09/18 08:43; Admin Dose 220 MG; Start 05/07/18 at 09:00 Ondansetron HCl (Zofran Tab) 4 mg Q6H PRN GTB NAUSEA AND/OR VOMITING Last administered on 05/31/18 16:47; Admin Dose 4 MG; Start 05/07/18 at 00:15 Multivitamins (Multivitamin) 30 ml DAILY GTB Last administered on 06/09/18 08:42; Admin Dose 30 ML; Start 05/07/18 at 09:00 Miscellaneous Information (Pending [facility] Order For Wound Care) This patient goldman... PRN PRN XX WOUND CARE; Start 05/09/18 at 17:00 Albuterol (Ventolin Hfa) 4 puff Q6H RESP THERAPY INH Last administered on 06/09/18 14:00; Admin Dose 4 PUFF; Start 05/12/18 at 20:00 Ipratropium Marshall (Atrovent Hfa) 4 puff Q6H RESP THERAPY INH Last administered on 06/09/18 14:00; Admin Dose 4 PUFF; Start 05/12/18 at 20:00 Heparin Sodium (Porcine) (Heparin (1000 Units/ml)) 2,800 unit AFTER DIALYSIS CATHETER Last administered on 05/29/18 18:24; Admin Dose 2,800 UNIT; Start 05/16/18 at 16:30 Furosemide (Lasix) 40 mg BID DIURETICS IV Last administered on 06/09/18 17:11; Admin Dose 40 MG; Start 05/19/18 at 09:00 Epoetin Zen-epbx (RETACRIT(esrd)) 20,000 unit Tu@1700 SC Last administered on 06/09/18 17:11; Admin Dose 20,000 UNIT; Start 05/19/18 at 17:00 Spironolactone (Aldactone) 50 mg DAILY GTB Last administered on 06/09/18 08:43; Admin Dose 50 MG; Start 05/21/18 at 09:00 Metolazone (Zaroxolyn) 5 mg DAILY@0600 PO Last administered on 05/28/18 05:48; Admin Dose 5 MG; Start 05/22/18 at 09:00; Status Hold Famotidine (Pepcid) 20 mg DAILY PEG Last administered on 06/09/18 08:43; Admin Dose 20 MG; Start 05/23/18 at 09:00 Morphine Sulfate (morphine) 6 mg Q4H PRN PEG SEVERE PAIN LEVEL 7-10 Last administered on 06/09/18 13:59; Admin Dose 6 MG; Start 05/22/18 at 17:00 Albumin Human 100 ml @ 100 mls/hr DURING DIALYSIS PRN IV hypotension on hd Last administered on 05/29/18 14:49; Admin Dose 100 MLS/HR; Start 05/27/18 at 07:30 Cholestyramine Resin (Questran Light) 4 gm 0600,1200,1800,2300 PO Last administered on 06/09/18 17:11; Admin Dose 4 GM; Start 05/27/18 at 18:00 Lorazepam (Ativan) 0.5 mg Q4H PRN IV ANXIETY; Start 05/30/18 at 12:00 Acetaminophen (Tylenol Tab) 650 mg Q4H PRN PO MILD PAIN(1-3)OR ELEVATED TEMP Last administered on 06/04/18 20:40; Admin Dose 650 MG; Start 05/31/18 at 13:00 Metoclopramide HCl (Reglan) 5 mg Q6 IV Last administered on 06/09/18 17:10; Admin Dose 5 MG; Start 05/31/18 at 13:00 Collagenase (Santyl) 1 applic DAILY TOP Last administered on 06/09/18 08:43; Admin Dose 1 APPLIC; Start 06/01/18 at 09:00 Clonidine (Catapres) 0.1 mg Q6H PRN PO ELEVATED BLOOD PRESSURE; Start 06/03/18 at 03:30 Miscellaneous Information (*Order Clarification Bulletin) MEDICATION REQUIRES CLARIFICATI... Q8H XX ; Start 06/05/18 at 21:00 Citric Acid/ Sodium Citrate (Bicitra) 30 ml TID PO Last administered on 06/09/18 13:59; Admin Dose 30 ML; Start 06/06/18 at 13:00 Vancomycin HCl (Vancomycin Oral Syringe) 250 mg Q8 PO Last administered on 06/09/18 14:11; Admin Dose 250 MG; Start 06/06/18 at 22:00 Amiodarone HCl (Cordarone) 200 mg Q8 PO Last administered on 06/09/18 13:58; Admin Dose 200 MG; Start 06/08/18 at 14:00 Metoprolol Tartrate (Lopressor) 75 mg Q8 GTB Last administered on 06/09/18 13:59; Admin Dose 75 MG; Start 06/08/18 at 14:00 Dextrose 1,000 ml @ 50 mls/hr Q20H ONCE IV Last administered on 06/09/18 11:11; Admin Dose 50 MLS/HR; Start 06/09/18 at 09:00; Stop 06/10/18 at 04:59 KERON MORAN Jun 09, 2018 18:42
--- NOTE | 2018-06-09 20:29 | CONS ---
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 colonization of the airway by pseudomonas and ESBL+klebsiella - h/o possible, recurrent HCAP due to pseudomonas and ESBL+klebsiella - h/o recurrent HCAP due to MRSA and Enterobacter (culture of tracheal aspirate on 07/16/2017 that was collected at [facility]) . Pt took vancomycin and ceftazidime - h/o decannulation prior to admission - h/o tracheostomy on 06/11/2017 - h/o SIRS from UGIB in 2018 - h/o thoracentesis on 07/18/2017, transudative (protein <2, LDH 279) - h/o bleeding from the trach site in 2018 - h/o septic shock due to pneumonia, ARDS, bacteremia, fungemia in 2018 - h/o ARDS in 2018 - h/o smoking - COPD - h/o ILD per medical record - h/o PAF, improved # GI - C diff colitis, diagnosed on 05/11/2018 - h/o intermittent diarrhea, Pt had multiple negative C. diff tests at [facility] at [facility] in the past; none was positive until 05/11/2018 - dysphagia - h/o PEG placement 06/13/2018 - protein calorie malnutrition - h/o coffee ground emesis/UGIB on 12/23/2017 due to deep ulceration of distal esophagus and gastritis on EGD 12/26/2017. No e/o H. pylori - h/o possible appendicitis on CT on 11/22/2017, Pt took ertapenem (11/24/2017- 12/01/2017) - h/o extensive adhesions lower abdominal and pelvis between small bowel to each other and to colon and to abdominal wall, anterior pelvic wall chronic abscess secondary to probably an old perforated diverticulitis, torsion of small bowel around these dense adhesion causing multiple obstructive points - h/o laparoscopic exploration and extensive lysis of adhesions and drainage of anterior pelvic wall abscess 09/16/2017. Cultures were negative, no e/o malignancy. Pt took pip/tazo (09/16/2017-09/26/2017) - h/o EGD and exchange of PEG on 09/01/2017 - h/o partial obstruction mid jejunum in L anterior central pelvis with suggestion of a 3 cm soft tissue mass on CT 08/28/2017 - h/o internal stomal deep ulcer behind the internal bumper, gastritis and esophagitis, Rodriguez's cannot be ruled out, per EGD with biopsy 07/23/2017 - h/o GIB s/p flex sig showed polyp; stool OB negative on 06/29/17 - h/o stool OB positive status - h/o SBO and ileus due to pain meds - h/o mildly elevated CEA # renal/ - anasarca - started on HD on 05/15/2018, via Juan in R groin - recurrent NATHAN on CKD - 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 Her strain of CRE was sensitive to colistin, Avycaz, and Vabomere but resistant to Zerbaxa (reported on 05/19/2018) - Hyponatremia - Hyperkalemia, now hypokalemia - Metabolic acidosis - adrenal insufficiency - h/o vaginal bleed in 2018 - h/o colonization of urinary tract by ESBL+klebsiella, VRE - h/o recurrent, symptomatic UTI due to carbapenem-resistant kleb (MDR strain) per urine culture 10/04/17, 10/09/17, 10/21/2017, P took colistin (10/09/2017- 10/15/2017), fosfomycin for carbapenemase-producing klebsiella and VRE on 10/25/2017 and 10/28/2017 - h/o funguria - h/o urinary retention # fungemia, bacteremia 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 improved. Probable manifestation of endocarditis. Pt declined MRI on 08/06/2017 - h/o infection of R toes due to pseudomonas. coagulase negative Staph likely a colonizer - h/o intertrigo of the groin, resolved with nystatin powder - h/o scabies, locally crusted lesion over L scapula, s/p permethrin cream and pGT ivermectin on 08/11/2017, 08/12/2017, 08/19/2017. Repeat skin scraping on 08/21/2017 was negative for scabies # psych, neuro - acute toxic metabolic encephalopathy - improving - decreased hearing b/l - h/o critical illness polyneuropathy - anxiety/depression, bipolar d/o, seen by Psychiatry in the past - chronic pain syndrome - h/o medical non-compliance: she would refuse her medications, treatment and straight catheterization in 2018 # hematological, vascular - chronic anemia requiring blood transfusion intermittently - Macrocytic anemia - 3.1 cm AAA on imaging - PVD Recommendations: - in light of risng WBC level, will collect urinalysis and urine culture - continue pGT tid vancomycin (05/11/2018-) for C. diff colitis; s/p IV metronidazole (05/11/2018-05/29/2018; restart 05/30/2018-06/05/18); Pt completed meropenem for HCAP (05/13/2018-05/19/2018) - then will start slow tapering next week: 06/15/2018-06/21/2018 bid, 06/22-06/28: daily, 06/29-07/05: q48hrs - management d/w PT's JAYANT Stahl Consultation Date/Type/Reason Admit Date/Time May 06, 2018 at 17:38 Initial Consult Date 05/10/18 Type of Consult ID Requesting Provider: ROLAND GIRON MD Date/Time of Note DATE: 06/09/18 TIME: 20:18 24 HR Interval Summary Subjective hx not possible: pt non-verbal Exam/Review of Systems Exam Vitals Vital Signs Date Temp Pulse Resp B/P (MAP) Pulse Ox O2 O2 Flow FiO2 Time Delivery Rate 06/09/18 102 24 100 30 19:45 06/09/18 98.5 130/95 Mechanical 16:06 (107) Ventilator Intake and Output 06/08/18 06/08/18 06/09/18 1515:00 23:00 07:00 IntakeIntake Total 675 ml OutputOutput Total 220 ml BalanceBalance 455 ml Constitutional: non-verbal, frail, obese Psych: confusion Head: normocephalic, atraumatic Eyes: nl conjunctiva, nl sclera ENMT: nl external ears & nose, other (dry mucus membranes) Neck: other (trach) Respiratory: crackles/rales, wheezing Cardiovascular: regular rate and rhythm, nl pulses Gastrointestinal: soft, other (GT) Genitourinary - Female: other (FC) Musculoskeletal: muscle weakness; No swelling Extremities: No edema Neurological: lethargic Skin: rash or lesions (eschar of some toes), ecchymosis Results Result Diagram: 06/09/18 0549 06/09/18 0549 Results 24hrs Laboratory Tests Test 06/09/18 05:49 White Blood Count 15.4 #H Red Blood Count 2.67 L Hemoglobin 8.6 L Hematocrit 29.0 L Mean Corpuscular Volume 108.6 H Mean Corpuscular Hemoglobin 32.2 Mean Corpuscular Hemoglobin Concent 29.7 L Red Cell Distribution Width 22.6 H Platelet Count 416 H Mean Platelet Volume 9.1 Immature Granulocytes % 0.800 H Neutrophils % 83.8 H Lymphocytes % 7.5 L Monocytes % 5.7 Eosinophils % 2.1 Basophils % 0.1 Nucleated Red Blood Cells % 0.0 Immature Granulocytes # 0.130 H Neutrophils # 12.9 H Lymphocytes # 1.2 Monocytes # 0.9 Eosinophils # 0.3 Basophils # 0.0 Nucleated Red Blood Cells # 0.0 Sodium Level 150 H Potassium Level 3.6 Chloride Level 118 H Carbon Dioxide Level 22 Anion Gap 10 Blood Urea Nitrogen 65 H Creatinine 1.95 H Est Glomerular Filtrat Rate mL/min Glucose Level 124 Calcium Level 10.1 Phosphorus Level 3.2 Magnesium Level 2.0 Medications Medication Current Medications IV Flush (NS 10 ml) 10 ml PRN IV ; Start 05/06/18 at 20:30 Ascorbic Acid (Vitamin C) 500 mg DAILY GTB Last administered on 06/09/18 08:43; Admin Dose 500 MG; Start 05/07/18 at 09:00 Albuterol/ Ipratropium (Duoneb) 3 ml Q2H RESP THERAPY PRN HHN SHORTNESS OF BREATH; Start 05/06/18 at 23:30 Zinc Sulfate (Zinc Sulfate) 220 mg DAILY GTB Last administered on 06/09/18 08:43; Admin Dose 220 MG; Start 05/07/18 at 09:00 Ondansetron HCl (Zofran Tab) 4 mg Q6H PRN GTB NAUSEA AND/OR VOMITING Last administered on 05/31/18 16:47; Admin Dose 4 MG; Start 05/07/18 at 00:15 Multivitamins (Multivitamin) 30 ml DAILY GTB Last administered on 06/09/18 08:42; Admin Dose 30 ML; Start 05/07/18 at 09:00 [facility]isc[facility] This patient goldman... PRN PRN XX WOUND CARE; Start 05/09/18 at 17:00 Albuterol (Ventolin Hfa) 4 puff Q6H RESP THERAPY INH Last administered on 06/09/18 19:50; Admin Dose 4 PUFF; Start 05/12/18 at 20:00 Ipratropium Eckert (Atrovent Hfa) 4 puff Q6H RESP THERAPY INH Last administered on 06/09/18 19:50; Admin Dose 4 PUFF; Start 05/12/18 at 20:00 Heparin Sodium (Porcine) (Heparin (1000 Units/ml)) 2,800 unit AFTER DIALYSIS CATHETER Last administered on 05/29/18 18:24; Admin Dose 2,800 UNIT; Start 05/16/18 at 16:30 Furosemide (Lasix) 40 mg BID DIURETICS IV Last administered on 06/09/18 17:11; Admin Dose 40 MG; Start 05/19/18 at 09:00 Epoetin Zen-epbx (RETACRIT(esrd)) 20,000 unit Tu@1700 SC Last administered on 06/09/18 17:11; Admin Dose 20,000 UNIT; Start 05/19/18 at 17:00 Spironolactone (Aldactone) 50 mg DAILY GTB Last administered on 06/09/18 08:43; Admin Dose 50 MG; Start 05/21/18 at 09:00 Metolazone (Zaroxolyn) 5 mg DAILY@0600 PO Last administered on 05/28/18 05:48; Admin Dose 5 MG; Start 05/22/18 at 09:00; Status Hold Famotidine (Pepcid) 20 mg DAILY PEG Last administered on 06/09/18 08:43; Admin Dose 20 MG; Start 05/23/18 at 09:00 Morphine Sulfate (morphine) 6 mg Q4H PRN PEG SEVERE PAIN LEVEL 7-10 Last administered on 06/09/18 13:59; Admin Dose 6 MG; Start 05/22/18 at 17:00 Albumin Human 100 ml @ 100 mls/hr DURING DIALYSIS PRN IV hypotension on hd Last administered on 05/29/18 14:49; Admin Dose 100 MLS/HR; Start 05/27/18 at 07:30 Cholestyramine Resin (Questran Light) 4 gm 0600,1200,1800,2300 PO Last administered on 06/09/18 17:11; Admin Dose 4 GM; Start 05/27/18 at 18:00 Lorazepam (Ativan) 0.5 mg Q4H PRN IV ANXIETY; Start 05/30/18 at 12:00 Acetaminophen (Tylenol Tab) 650 mg Q4H PRN PO MILD PAIN(1-3)OR ELEVATED TEMP Last administered on 06/04/18 20:40; Admin Dose 650 MG; Start 05/31/18 at 13:00 Metoclopramide HCl (Reglan) 5 mg Q6 IV Last administered on 06/09/18 17:10; Admin Dose 5 MG; Start 05/31/18 at 13:00 Collagenase (Santyl) 1 applic DAILY TOP Last administered on 06/09/18 08:43; Admin Dose 1 APPLIC; Start 06/01/18 at 09:00 Clonidine (Catapres) 0.1 mg Q6H PRN PO ELEVATED BLOOD PRESSURE; Start 06/03/18 at 03:30 Miscellaneous Information (*Order Clarification Bulletin) MEDICATION REQUIRES CLARIFICATI... Q8H XX ; Start 06/05/18 at 21:00 Citric Acid/ Sodium Citrate (Bicitra) 30 ml TID PO Last administered on 06/09/18 13:59; Admin Dose 30 ML; Start 06/06/18 at 13:00 Vancomycin HCl (Vancomycin Oral Syringe) 250 mg Q8 PO Last administered on 06/09/18 14:11; Admin Dose 250 MG; Start 06/06/18 at 22:00 Amiodarone HCl (Cordarone) 200 mg Q8 PO Last administered on 06/09/18 13:58; Admin Dose 200 MG; Start 06/08/18 at 14:00 Metoprolol Tartrate (Lopressor) 75 mg Q8 GTB Last administered on 06/09/18 13:59; Admin Dose 75 MG; Start 06/08/18 at 14:00 Dextrose 1,000 ml @ 50 mls/hr Q20H ONCE IV Last administered on 06/09/18 11:11; Admin Dose 50 MLS/HR; Start 06/09/18 at 09:00; Stop 06/10/18 at 04:59 CELESTINE MURPHY M.D. Jun 09, 2018 20:29
[2018-06-10] VITALS (20 sets, daily range): BP systolic 113–141; BP diastolic 61–76; PULSE 84–124; RESP 18–30
[2018-06-10] MEDS: ALBUTEROL HFA 8 GM INHALER INH SCH ×4 (01:41→19:18)
[2018-06-10] MEDS: IPRATROPIUM (HFA) 12.9 GM INHALER INH SCH ×4 (01:41→19:18)
[2018-06-10] MEDS: [UNRECOGNIZED DRUG - REMARK] XX SCH ×3 (05:00→21:00)
[2018-06-10] MEDS: METOCLOPRAMIDE 10 MG INJ IV SCH ×4 (05:45→18:33)
[2018-06-10] MEDS: METOPROLOL 25 MG TAB GTB SCH ×3 (05:45→21:43)
[2018-06-10] MEDS: FUROSEMIDE 40 MG INJ IV SCH ×2 (05:46→18:33)
[2018-06-10] MEDS: CHOLESTYRAMINE (LIGHT) 4 GM PACKET PO SCH ×4 (05:46→22:29)
[2018-06-10] MEDS: AMIODARONE 200 MG TAB PO SCH ×3 (05:46→21:43)
[2018-06-10] MEDS: VANCOMYCIN HCL 250 MG/5ML POSYG PO SCH ×3 (05:49→21:42)
--- NOTE | 2018-06-10 08:51 | PN ---
DATE: 06/10/2018 SUBJECTIVE: The patient is stable, no events overnight. No fevers, chills, nausea, vomiting. No sh ortness of breath. OBJECTIVE: VITAL SIGNS: Blood pressure is 132/68, respirations 18, pulse 100, temperature 98.3. HEENT: Head is normocephalic. NECK: Supple. HEART: Regular rate. LUNGS: Show diminished breath sounds at the base. ABDOMEN: Soft, nontender to palpation without rebound or guarding. EXTREMITIES: Negative for clubbing, cyanosis. Trace edema. DERMATOLOGIC: No rashes. MUSCULOSKELETAL: No joint effusion. NEUROLOGIC: No change in exam. MEDICATIONS: The patient's medications have been reviewed. LABORATORY DATA: Reviewed. IMAGING STUDIES: Reviewed. MICROBIOLOGY: Cultures have been reviewed. ASSESSMENT AND PLAN: 1. Nonoliguric acute kidney injury on top of chronic kidney disease with previous baseline creatinin e of around 2 to 2.5 mg/dL. Etiology of acute kidney injury is secondary to acute tubular necrosis. The patient is status post hemodialysis. Renal function is stabilized. Continue current treatment plan, supportive care, renally dose all medicines. 2. Volume overload, improving. Continue intermittent diuretic therapy. 3. Hypernatremia. The patient is status post D5 water. Continue free water flushes, follow up sodi um levels. 4. Hypokalemia. Continue to monitor and replete. 5. Metabolic acidosis, improving. Continue Bicitra. 6. Anemia. Continue to monitor hemoglobin and hematocrit levels. Continue Epogen. 7. Mineral bone disorder, monitor calcium and phosphorus levels. 8. Ventilator-dependent respiratory failure. Vent settings and ABG was reviewed. Continue to monit or. 9. Sepsis, status post shock. Continue current antibiotic regimen. 10. Dysphagia. Continue tube feeding. 11. Acute encephalopathy. Etiology is toxic metabolic. 12. Lower extremity wounds. Continue wound care. Dictated By: JEANA BANSAL DO NR/NTS Conf#: [id number] DID#: [id number] CC: ROLAND GIRON MD; QUINTEN UMAÑA MD;*EndCC*
[2018-06-10] MEDS: ASCORBIC ACID 500 MG TAB GTB SCH (08:56)
[2018-06-10] MEDS: COLLAGENASE 5 GM (UD JAR) TOP SCH (08:56)
[2018-06-10] MEDS: ZINC SULFATE 220 MG CAP GTB SCH (08:56)
[2018-06-10] MEDS: MULTIVITAMINS 30 ML CUP GTB SCH (08:56)
[2018-06-10] MEDS: BALSAM PERU/CASTOR OIL 60 GM TUBE TOP SCH ×2 (08:56→21:45)
[2018-06-10] MEDS: FAMOTIDINE 20 MG TAB PEG SCH (08:56)
[2018-06-10] MEDS: CITRIC ACID/NA CITRATE 30 ML CUP PO SCH ×3 (08:56→21:42)
[2018-06-10] MEDS: SPIRONOLACTONE 25 MG TAB GTB SCH (09:08)
--- NOTE | 2018-06-10 10:47 | CONS ---
Assessment/Plan Assessment/Plan Assessment/Plan (Daily) Ventilator setting; AC of 20, tidal volume 500, PEEP of 5, 30% FiO2. Assessment and recommendations; 1. Patient with history of VDR F status post decannulation of tracheostomy few months ago, requiring redo tracheostomy because of failure to be weaned from ventilator. 2. Status post treatment for severe bilateral pneumonia. 3. COPD. 4. CHF. 5. Renal failure, now hemodialysis dependent. 6. Anemia and thrombocytopenia. 7. Critical illness neuropathy/myopathy. Continue current supportive care. Transfer to rehab center/alf. Prognosis is poor. Consultation Date/Type/Reason Admit Date/Time May 06, 2018 at 17:38 Initial Consult Date 05/10/18 Type of Consult Pulmonary/critical care Requesting Provider: ROLAND GIRON MD Date/Time of Note DATE: 06/10/18 TIME: 10:42 24 HR Interval Summary Free Text/Dictation Patient's condition is stable. Remains awake and alert. Has remained hemodynamically stable. General exam; elderly lady, on ventilator via tracheostomy, awake and alert. Currently in no distress. Exam/Review of Systems Exam Vitals Vital Signs Date Temp Pulse Resp B/P (MAP) Pulse Ox O2 O2 Flow FiO2 Time Delivery Rate 06/10/18 100 26 96 30 09:19 06/10/18 98.3 132/68 07:38 (89) 06/09/18 Mechanical 16:06 Ventilator Intake and Output 06/09/18 06/09/18 06/10/18 1515:00 23:00 07:00 IntakeIntake Total 1200 ml OutputOutput Total 890 ml BalanceBalance 310 ml Exam H EENT exam; supple neck, no JVD. No lymphadenopathy. Midline trachea. No thyromegaly. Tracheostomy in place. Chest exam; diminished breath sounds throughout. S1-S2 audible, no murmurs. Regular rhythm. Abdomen exam; soft, no organomegaly. G-tube in place. Bowel sounds audible. Extremity exam; no peripheral edema clubbing. TRANSCRIPTION TYPIST exam; no focal motor deficit. Results Result Diagram: 06/10/18 0729 06/10/18 0729 Results 24hrs Laboratory Tests Test 06/09/18 23:35 06/10/18 07:29 Urine Color PRERNA Urine Clarity TURBID A Urine pH 6.0 Urine Specific [place] 1.010 Urine Ketones NEGATIVE Urine Nitrite POSITIVE A Urine Bilirubin NEGATIVE Urine Urobilinogen NEGATIVE Urine Leukocyte Esterase 3+ H Urine Microscopic RBC 37 H Urine Microscopic WBC > 182 H Urine Transitional Epithelial Cells FEW A Urine Bacteria MODERATE Urine Hemoglobin 1+ H Urine Glucose NEGATIVE Urine Total Protein 1+ H White Blood Count 13.5 H Red Blood Count 2.33 L Hemoglobin 7.5 L Hematocrit 25.6 L Mean Corpuscular Volume 109.9 H Mean Corpuscular Hemoglobin 32.2 Mean Corpuscular Hemoglobin Concent 29.3 L Red Cell Distribution Width 22.9 H Platelet Count 325 # Mean Platelet Volume 9.5 Immature Granulocytes % 0.700 H Neutrophils % 81.5 H Lymphocytes % 9.1 L Monocytes % 5.4 Eosinophils % 3.2 Basophils % 0.1 Nucleated Red Blood Cells % 0.2 H Immature Granulocytes # 0.090 H Neutrophils # 11.0 H Lymphocytes # 1.2 Monocytes # 0.7 Eosinophils # 0.4 Basophils # 0.0 Nucleated Red Blood Cells # 0.0 Sodium Level 146 H Potassium Level 3.4 L Chloride Level 115 H Carbon Dioxide Level 22 Anion Gap 9 Blood Urea Nitrogen 67 H Creatinine 1.82 H Est Glomerular Filtrat Rate mL/min Glucose Level 104 Calcium Level 9.3 Phosphorus Level 2.9 Magnesium Level 1.7 Medications Medication Current Medications IV Flush (NS 10 ml) 10 ml PRN IV ; Start 05/06/18 at 20:30 Ascorbic Acid (Vitamin C) 500 mg DAILY GTB Last administered on 06/10/18 08:56; Admin Dose 500 MG; Start 05/07/18 at 09:00 Albuterol/ Ipratropium (Duoneb) 3 ml Q2H RESP THERAPY PRN HHN SHORTNESS OF BREATH; Start 05/06/18 at 23:30 Zinc Sulfate (Zinc Sulfate) 220 mg DAILY GTB Last administered on 06/10/18 08:56; Admin Dose 220 MG; Start 05/07/18 at 09:00 Ondansetron HCl (Zofran Tab) 4 mg Q6H PRN GTB NAUSEA AND/OR VOMITING Last administered on 05/31/18 16:47; Admin Dose 4 MG; Start 05/07/18 at 00:15 Multivitamins (Multivitamin) 30 ml DAILY GTB Last administered on 06/10/18 08:56; Admin Dose 30 ML; Start 05/07/18 at 09:00 Miscellaneous Information (Pending Santyl Order For Wound Care) This patient goldman... PRN PRN XX WOUND CARE; Start 05/09/18 at 17:00 Albuterol (Ventolin Hfa) 4 puff Q6H RESP THERAPY INH Last administered on 06/10/18 08:03; Admin Dose 4 PUFF; Start 05/12/18 at 20:00 Ipratropium [place] (Atrovent Hfa) 4 puff Q6H RESP THERAPY INH Last administered on 06/10/18 08:02; Admin Dose 4 PUFF; Start 05/12/18 at 20:00 Heparin Sodium (Porcine) (Heparin (1000 Units/ml)) 2,800 unit AFTER DIALYSIS CATHETER Last administered on 05/29/18 18:24; Admin Dose 2,800 UNIT; Start 05/16/18 at 16:30 Furosemide (Lasix) 40 mg BID DIURETICS IV Last administered on 06/10/18 05:46; Admin Dose 40 MG; Start 05/19/18 at 09:00 Epoetin Zen-epbx (RETACRIT(esrd)) 20,000 unit Tu@1700 SC Last administered on 06/09/18 17:11; Admin Dose 20,000 UNIT; Start 05/19/18 at 17:00 Spironolactone (Aldactone) 50 mg DAILY GTB Last administered on 06/10/18 09:08; Admin Dose 50 MG; Start 05/21/18 at 09:00 Metolazone (Zaroxolyn) 5 mg DAILY@0600 PO Last administered on 05/28/18 05:48; Admin Dose 5 MG; Start 05/22/18 at 09:00; Status Hold Famotidine (Pepcid) 20 mg DAILY PEG Last administered on 06/10/18 08:56; Admin Dose 20 MG; Start 05/23/18 at 09:00 Morphine Sulfate (morphine) 6 mg Q4H PRN PEG SEVERE PAIN LEVEL 7-10 Last administered on 06/09/18 13:59; Admin Dose 6 MG; Start 05/22/18 at 17:00 Albumin Human 100 ml @ 100 mls/hr DURING DIALYSIS PRN IV hypotension on hd Last administered on 05/29/18 14:49; Admin Dose 100 MLS/HR; Start 05/27/18 at 07:30 Cholestyramine Resin (Questran Light) 4 gm 0600,1200,1800,2300 PO Last administered on 06/10/18 05:46; Admin Dose 4 GM; Start 05/27/18 at 18:00 Lorazepam (Ativan) 0.5 mg Q4H PRN IV ANXIETY; Start 05/30/18 at 12:00 Acetaminophen (Tylenol Tab) 650 mg Q4H PRN PO MILD PAIN(1-3)OR ELEVATED TEMP Last administered on 06/04/18 20:40; Admin Dose 650 MG; Start 05/31/18 at 13:00 Metoclopramide HCl (Reglan) 5 mg Q6 IV Last administered on 06/10/18 05:59; Admin Dose 5 MG; Start 05/31/18 at 13:00 Collagenase (Santyl) 1 applic DAILY TOP Last administered on 06/10/18 08:56; Admin Dose 1 APPLIC; Start 06/01/18 at 09:00 Clonidine (Catapres) 0.1 mg Q6H PRN PO ELEVATED BLOOD PRESSURE; Start 06/03/18 at 03:30 Miscellaneous Information (*Order Clarification Bulletin) MEDICATION REQUIRES CLARIFICATI... Q8H XX Last administered on 06/09/18 21:00; Admin Dose 200 EA; Start 06/05/18 at 21:00 Citric Acid/ Sodium Citrate (Bicitra) 30 ml TID PO Last administered on 06/10/18 08:56; Admin Dose 30 ML; Start 06/06/18 at 13:00 Vancomycin HCl (Vancomycin Oral Syringe) 250 mg Q8 PO Last administered on 06/10/18 05:49; Admin Dose 250 MG; Start 06/06/18 at 22:00 Amiodarone HCl (Cordarone) 200 mg Q8 PO Last administered on 06/10/18 05:46; Admin Dose 200 MG; Start 06/08/18 at 14:00 Metoprolol Tartrate (Lopressor) 75 mg Q8 GTB Last administered on 06/10/18 05:45; Admin Dose 75 MG; Start 06/08/18 at 14:00 ELOISA LAURA Jun 10, 2018 10:47
[2018-06-10] MEDS ORDERED: FOSFOMYCIN 3 GM PACKET GTB ONE (13:00)
--- NOTE | 2018-06-10 13:02 | CONS ---
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 colonization of the airway by pseudomonas and ESBL+klebsiella - h/o possible, recurrent HCAP due to pseudomonas and ESBL+klebsiella - h/o recurrent HCAP due to MRSA and Enterobacter (culture of tracheal aspirate on 07/16/2017 that was collected at [facility]) . Pt took vancomycin and ceftazidime - h/o decannulation prior to admission - h/o tracheostomy on 06/11/2017 - h/o SIRS from UGIB in 2018 - h/o thoracentesis on 07/18/2017, transudative (protein <2, LDH 279) - h/o bleeding from the trach site in 2018 - h/o septic shock due to pneumonia, ARDS, bacteremia, fungemia in 2018 - h/o ARDS in 2018 - h/o smoking - COPD - h/o ILD per medical record - h/o PAF, improved # GI - C diff colitis, diagnosed on 05/11/2018 - h/o intermittent diarrhea, Pt had multiple negative C. diff tests at [facility] at OSH in the past; none was positive until 05/11/2018 - dysphagia - h/o PEG placement 06/13/2018 - protein calorie malnutrition - h/o coffee ground emesis/UGIB on 12/23/2017 due to deep ulceration of distal esophagus and gastritis on EGD 12/26/2017. No e/o H. pylori - h/o possible appendicitis on CT on 11/22/2017, Pt took ertapenem (11/24/2017- 12/01/2017) - h/o extensive adhesions lower abdominal and pelvis between small bowel to each other and to colon and to abdominal wall, anterior pelvic wall chronic abscess secondary to probably an old perforated diverticulitis, torsion of small bowel around these dense adhesion causing multiple obstructive points - h/o laparoscopic exploration and extensive lysis of adhesions and drainage of anterior pelvic wall abscess 09/16/2017. Cultures were negative, no e/o malignancy. Pt took pip/tazo (09/16/2017-09/26/2017) - h/o EGD and exchange of PEG on 09/01/2017 - h/o partial obstruction mid jejunum in L anterior central pelvis with suggestion of a 3 cm soft tissue mass on CT 08/28/2017 - h/o internal stomal deep ulcer behind the internal bumper, gastritis and esophagitis, Ordriguez's cannot be ruled out, per EGD with biopsy 07/23/2017 - h/o GIB s/p flex sig showed polyp; stool OB negative on 06/29/17 - h/o stool OB positive status - h/o SBO and ileus due to pain meds - h/o mildly elevated CEA # renal/ - UTI due to gram negative bacteria 06/09/2018 - anasarca - started on HD on 05/15/2018, via Juan in R groin - recurrent NATHAN on CKD - 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 Her strain of CRE was sensitive to colistin, Avycaz, and Vabomere but resistant to Zerbaxa (reported on 05/19/2018) - Hyponatremia - Hyperkalemia, now hypokalemia - Metabolic acidosis - adrenal insufficiency - h/o vaginal bleed in 2018 - h/o colonization of urinary tract by ESBL+klebsiella, VRE - h/o recurrent, symptomatic UTI due to carbapenem-resistant kleb (MDR strain) per urine culture 10/04/17, 10/09/17, 10/21/2017, P took colistin (10/09/2017- 10/15/2017), fosfomycin for carbapenemase-producing klebsiella and VRE on 10/25/2017 and 10/28/2017 - h/o funguria - h/o urinary retention # fungemia, bacteremia 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 improved. Probable manifestation of endocarditis. Pt declined MRI on 08/06/2017 - h/o infection of R toes due to pseudomonas. coagulase negative Staph likely a colonizer - h/o intertrigo of the groin, resolved with nystatin powder - h/o scabies, locally crusted lesion over L scapula, s/p permethrin cream and pGT ivermectin on 08/11/2017, 08/12/2017, 08/19/2017. Repeat skin scraping on 08/21/2017 was negative for scabies # psych, neuro - acute toxic metabolic encephalopathy - improving - decreased hearing b/l - h/o critical illness polyneuropathy - anxiety/depression, bipolar d/o, seen by Psychiatry in the past - chronic pain syndrome - h/o medical non-compliance: she would refuse her medications, treatment and straight catheterization in 2018 # hematological, vascular - chronic anemia requiring blood transfusion intermittently - Macrocytic anemia - 3.1 cm AAA on imaging - PVD Recommendations: - pending results: gram negative bacteria in urine culture - ordered: abd XR to r/o ileus - give one dose of fosfomycin today. I will review the final result of urine culture and determine her antibiotic - continue pGT tid vancomycin (05/11/2018-) for C. diff colitis; s/p IV metronidazole (05/11/2018-05/29/2018; restart 05/30/2018-06/05/18); Pt completed meropenem for HCAP (05/13/2018-05/19/2018) - will continue slow tapering next week: 06/15/2018-06/21/2018 bid, 06/22-06/28: daily, 06/29-07/05: q48hrs - management d/w Pt Consultation Date/Type/Reason Admit Date/Time May 06, 2018 at 17:38 Initial Consult Date 05/10/18 Type of Consult ID Requesting Provider: ROLAND GIRON MD Date/Time of Note DATE: 06/10/18 TIME: 12:57 24 HR Interval Summary Subjective hx not possible: pt non-verbal Detailed Summary Respiratory: other (+trach) Gastrointestinal: pain ("all over") Exam/Review of Systems Exam Vitals Vital Signs Date Temp Pulse Resp B/P (MAP) Pulse Ox O2 O2 Flow FiO2 Time Delivery Rate 06/10/18 98 22 83 30 11:34 06/10/18 98.7 113/69 11:33 (84) 06/09/18 Mechanical 16:06 Ventilator Intake and Output 06/09/18 06/09/18 06/10/18 1515:00 23:00 07:00 IntakeIntake Total 1200 ml OutputOutput Total 890 ml BalanceBalance 310 ml Constitutional: non-verbal, frail Psych: no complaints Head: normocephalic, atraumatic Eyes: nl conjunctiva, nl lids, nl sclera ENMT: nl external ears & nose, nl nasal mucosa & septum, other (dry mucus membranes) Neck: other (+trach) Respiratory: clear to auscultation, crackles/rales Cardiovascular: regular rate and rhythm, nl pulses, edema Gastrointestinal: soft, non-tender, other (GT) Genitourinary - Female: other (FC) Musculoskeletal: nl extremities to inspection; No swelling Neurological: lethargic Skin: nl turgor, rash or lesions (desub of the sacrum) Results Result Diagram: 06/10/1872806/10/18728 Results 24hrs Laboratory Tests Test 06/09/18 23:35 06/10/18 07:29 Urine Color PRERNA Urine Clarity TURBID A Urine pH 6.0 Urine Specific [place] 1.010 Urine Ketones NEGATIVE Urine Nitrite POSITIVE A Urine Bilirubin NEGATIVE Urine Urobilinogen NEGATIVE Urine Leukocyte Esterase 3+ H Urine Microscopic RBC 37 H Urine Microscopic WBC > 182 H Urine Transitional Epithelial Cells FEW A Urine Bacteria MODERATE Urine Hemoglobin 1+ H Urine Glucose NEGATIVE Urine Total Protein 1+ H White Blood Count 13.5 H Red Blood Count 2.33 L Hemoglobin 7.5 L Hematocrit 25.6 L Mean Corpuscular Volume 109.9 H Mean Corpuscular Hemoglobin 32.2 Mean Corpuscular Hemoglobin Concent 29.3 L Red Cell Distribution Width 22.9 H Platelet Count 325 # Mean Platelet Volume 9.5 Immature Granulocytes % 0.700 H Neutrophils % 81.5 H Lymphocytes % 9.1 L Monocytes % 5.4 Eosinophils % 3.2 Basophils % 0.1 Nucleated Red Blood Cells % 0.2 H Immature Granulocytes # 0.090 H Neutrophils # 11.0 H Lymphocytes # 1.2 Monocytes # 0.7 Eosinophils # 0.4 Basophils # 0.0 Nucleated Red Blood Cells # 0.0 Sodium Level 146 H Potassium Level 3.4 L Chloride Level 115 H Carbon Dioxide Level 22 Anion Gap 9 Blood Urea Nitrogen 67 H Creatinine 1.82 H Est Glomerular Filtrat Rate mL/min Glucose Level 104 Calcium Level 9.3 Phosphorus Level 2.9 Magnesium Level 1.7 Medications Medication Current Medications IV Flush (NS 10 ml) 10 ml PRN IV ; Start 05/06/18 at 20:30 Ascorbic Acid (Vitamin C) 500 mg DAILY GTB Last administered on 06/10/18 08:56; Admin Dose 500 MG; Start 05/07/18 at 09:00 Albuterol/ Ipratropium (Duoneb) 3 ml Q2H RESP THERAPY PRN HHN SHORTNESS OF BREATH; Start 05/06/18 at 23:30 Zinc Sulfate (Zinc Sulfate) 220 mg DAILY GTB Last administered on 06/10/18 08:56; Admin Dose 220 MG; Start 05/07/18 at 09:00 Ondansetron HCl (Zofran Tab) 4 mg Q6H PRN GTB NAUSEA AND/OR VOMITING Last administered on 05/31/18 16:47; Admin Dose 4 MG; Start 05/07/18 at 00:15 Multivitamins (Multivitamin) 30 ml DAILY GTB Last administered on 06/10/18 08:56; Admin Dose 30 ML; Start 05/07/18 at 09:00 Miscellaneous Information [facility] This patient goldman... PRN PRN XX WOUND CARE; Start 05/09/18 at 17:00 Albuterol (Ventolin Hfa) 4 puff Q6H RESP THERAPY INH Last administered on 06/10/18 08:03; Admin Dose 4 PUFF; Start 05/12/18 at 20:00 Ipratropium [place] (Atrovent Hfa) 4 puff Q6H RESP THERAPY INH Last administered on 06/10/18 08:02; Admin Dose 4 PUFF; Start 05/12/18 at 20:00 Heparin Sodium (Porcine) (Heparin (1000 Units/ml)) 2,800 unit AFTER DIALYSIS CATHETER Last administered on 05/29/18 18:24; Admin Dose 2,800 UNIT; Start 05/16/18 at 16:30 Furosemide (Lasix) 40 mg BID DIURETICS IV Last administered on 06/10/18 05:46; Admin Dose 40 MG; Start 05/19/18 at 09:00 Epoetin Zen-epbx (RETACRIT(esrd)) 20,000 unit Tu@1700 SC Last administered on 06/09/18 17:11; Admin Dose 20,000 UNIT; Start 05/19/18 at 17:00 Spironolactone (Aldactone) 50 mg DAILY GTB Last administered on 06/10/18 09:08; Admin Dose 50 MG; Start 05/21/18 at 09:00 Metolazone (Zaroxolyn) 5 mg DAILY@0600 PO Last administered on 05/28/18 05:48; Admin Dose 5 MG; Start 05/22/18 at 09:00; Status Hold Famotidine (Pepcid) 20 mg DAILY PEG Last administered on 06/10/18 08:56; Admin Dose 20 MG; Start 05/23/18 at 09:00 Morphine Sulfate (morphine) 6 mg Q4H PRN PEG SEVERE PAIN LEVEL 7-10 Last administered on 06/09/18 13:59; Admin Dose 6 MG; Start 05/22/18 at 17:00 Albumin Human 100 ml @ 100 mls/hr DURING DIALYSIS PRN IV hypotension on hd Last administered on 05/29/18 14:49; Admin Dose 100 MLS/HR; Start 05/27/18 at 07:30 Cholestyramine Resin (Questran Light) 4 gm 0600,1200,1800,2300 PO Last administered on 06/10/18 05:46; Admin Dose 4 GM; Start 05/27/18 at 18:00 Lorazepam (Ativan) 0.5 mg Q4H PRN IV ANXIETY; Start 05/30/18 at 12:00 Acetaminophen (Tylenol Tab) 650 mg Q4H PRN PO MILD PAIN(1-3)OR ELEVATED TEMP Last administered on 06/04/18 20:40; Admin Dose 650 MG; Start 05/31/18 at 13:00 Metoclopramide HCl (Reglan) 5 mg Q6 IV Last administered on 06/10/18 12:24; Admin Dose 5 MG; Start 05/31/18 at 13:00 Collagenase (Santyl) 1 applic DAILY TOP Last administered on 06/10/18 08:56; Admin Dose 1 APPLIC; Start 06/01/18 at 09:00 Clonidine (Catapres) 0.1 mg Q6H PRN PO ELEVATED BLOOD PRESSURE; Start 06/03/18 at 03:30 Miscellaneous Information (*Order Clarification Bulletin) MEDICATION REQUIRES CLARIFICATI... Q8H XX Last administered on 06/09/18 21:00; Admin Dose 200 EA; Start 06/05/18 at 21:00 Citric Acid/ Sodium Citrate (Bicitra) 30 ml TID PO Last administered on 06/10/18 12:24; Admin Dose 30 ML; Start 06/06/18 at 13:00 Vancomycin HCl (Vancomycin Oral Syringe) 250 mg Q8 PO Last administered on 06/10/18 05:49; Admin Dose 250 MG; Start 06/06/18 at 22:00 Amiodarone HCl (Cordarone) 200 mg Q8 PO Last administered on 06/10/18 05:46; Admin Dose 200 MG; Start 06/08/18 at 14:00 Metoprolol Tartrate (Lopressor) 75 mg Q8 GTB Last administered on 06/10/18 05 :45; Admin Dose 75 MG; Start 06/08/18 at 14:00 CELESTINE MURPHY M.D. Jun 10, 2018 13:02
--- NOTE | 2018-06-10 16:39 | CONS ---
Assessment/Plan Assessment/Plan Assessment/Plan (Daily) Septic as well as hemorrhagic shock-improving Acute respiratory failure status post intubation Acute blood loss anemia Septic shock and hemorrhagic shock History of respiratory failure status post decannulation Preserved ejection fraction echocardiogram 05/10/2018 Paroxysmal atrial fibrillation Acute kidney injury -Patient with paroxysmal atrial fibrillation, has remained sinus after increased beta-tin and amiodarone yesterday -Vent management as per pulmonary -Fluid management and electrolytes as per renal -Antibiotics as per infectious disease -No anticoagulation given recurrent anemia requiring blood transfusions Consultation Date/Type/Reason Admit Date/Time May 06, 2018 at 17:38 Initial Consult Date 05/10/18 Type of Consult Cardiology Requesting Provider: ROLAND GIRON MD Date/Time of Note DATE: 06/10/18 TIME: 16:39 24 HR Interval Summary Free Text/Dictation the patient wtih no cahnge Exam/Review of Systems Vital Signs Vitals Vital Signs Date Temp Pulse Resp B/P (MAP) Pulse Ox O2 O2 Flow FiO2 Time Delivery Rate 06/10/18 100 25 99 30 15:34 06/10/18 98.7 113/69 11:33 (84) 06/09/18 Mechanical 16:06 Ventilator Intake and Output 06/09/18 06/09/18 06/10/18 1515:00 23:00 07:00 IntakeIntake Total 1200 ml OutputOutput Total 890 ml BalanceBalance 310 ml Labs Result Diagram: 06/10/18 0729 06/10/18 0729 Results 24hrs Laboratory Tests Test 06/09/18 23:35 06/10/18 07:29 Urine Color PRERNA Urine Clarity TURBID A Urine pH 6.0 Urine Specific [place] 1.010 Urine Ketones NEGATIVE Urine Nitrite POSITIVE A Urine Bilirubin NEGATIVE Urine Urobilinogen NEGATIVE Urine Leukocyte Esterase 3+ H Urine Microscopic RBC 37 H Urine Microscopic WBC > 182 H Urine Transitional Epithelial Cells FEW A Urine Bacteria MODERATE Urine Hemoglobin 1+ H Urine Glucose NEGATIVE Urine Total Protein 1+ H White Blood Count 13.5 H Red Blood Count 2.33 L Hemoglobin 7.5 L Hematocrit 25.6 L Mean Corpuscular Volume 109.9 H Mean Corpuscular Hemoglobin 32.2 Mean Corpuscular Hemoglobin Concent 29.3 L Red Cell Distribution Width 22.9 H Platelet Count 325 # Mean Platelet Volume 9.5 Immature Granulocytes % 0.700 H Neutrophils % 81.5 H Lymphocytes % 9.1 L Monocytes % 5.4 Eosinophils % 3.2 Basophils % 0.1 Nucleated Red Blood Cells % 0.2 H Immature Granulocytes # 0.090 H Neutrophils # 11.0 H Lymphocytes # 1.2 Monocytes # 0.7 Eosinophils # 0.4 Basophils # 0.0 Nucleated Red Blood Cells # 0.0 Sodium Level 146 H Potassium Level 3.4 L Chloride Level 115 H Carbon Dioxide Level 22 Anion Gap 9 Blood Urea Nitrogen 67 H Creatinine 1.82 H Est Glomerular Filtrat Rate mL/min Glucose Level 104 Calcium Level 9.3 Phosphorus Level 2.9 Magnesium Level 1.7 Medications Medications Current Medications IV Flush (NS 10 ml) 10 ml PRN IV ; Start 05/06/18 at 20:30 Ascorbic Acid (Vitamin C) 500 mg DAILY GTB Last administered on 06/10/18 08:56; Admin Dose 500 MG; Start 05/07/18 at 09:00 Albuterol/ Ipratropium (Duoneb) 3 ml Q2H RESP THERAPY PRN HHN SHORTNESS OF BREATH; Start 05/06/18 at 23:30 Zinc Sulfate (Zinc Sulfate) 220 mg DAILY GTB Last administered on 06/10/18 08:56; Admin Dose 220 MG; Start 05/07/18 at 09:00 Ondansetron HCl (Zofran Tab) 4 mg Q6H PRN GTB NAUSEA AND/OR VOMITING Last administered on 05/31/18 16:47; Admin Dose 4 MG; Start 05/07/18 at 00:15 Multivitamins (Multivitamin) 30 ml DAILY GTB Last administered on 06/10/18 08:56; Admin Dose 30 ML; Start 05/07/18 at 09:00 [facility]isc[facility] This patient goldman... PRN PRN XX WOUND CARE; Start 05/09/18 at 17:00 Albuterol (Ventolin Hfa) 4 puff Q6H RESP THERAPY INH Last administered on 06/10/18 13:35; Admin Dose 4 PUFF; Start 05/12/18 at 20:00 Ipratropium [place] (Atrovent Hfa) 4 puff Q6H RESP THERAPY INH Last administered on 06/10/18 13:34; Admin Dose 4 PUFF; Start 05/12/18 at 20:00 Heparin Sodium (Porcine) (Heparin (1000 Units/ml)) 2,800 unit AFTER DIALYSIS CATHETER Last administered on 05/29/18 18:24; Admin Dose 2,800 UNIT; Start 05/16/18 at 16:30 Furosemide (Lasix) 40 mg BID DIURETICS IV Last administered on 06/10/18 05:46; Admin Dose 40 MG; Start 05/19/18 at 09:00 Epoetin Zen-epbx (RETACRIT(esrd)) 20,000 unit Tu@1700 SC Last administered on 06/09/18 17:11; Admin Dose 20,000 UNIT; Start 05/19/18 at 17:00 Spironolactone (Aldactone) 50 mg DAILY GTB Last administered on 06/10/18 09:08; Admin Dose 50 MG; Start 05/21/18 at 09:00 Metolazone (Zaroxolyn) 5 mg DAILY@0600 PO Last administered on 05/28/18 05:48; Admin Dose 5 MG; Start 05/22/18 at 09:00; Status Hold Famotidine (Pepcid) 20 mg DAILY PEG Last administered on 06/10/18 08:56; Admin Dose 20 MG; Start 05/23/18 at 09:00 Morphine Sulfate (morphine) 6 mg Q4H PRN PEG SEVERE PAIN LEVEL 7-10 Last administered on 06/09/18 13:59; Admin Dose 6 MG; Start 05/22/18 at 17:00 Albumin Human 100 ml @ 100 mls/hr DURING DIALYSIS PRN IV hypotension on hd Last administered on 05/29/18 14:49; Admin Dose 100 MLS/HR; Start 05/27/18 at 07:30 Cholestyramine Resin (Questran Light) 4 gm 0600,1200,1800,2300 PO Last administered on 06/10/18 14:33; Admin Dose 4 GM; Start 05/27/18 at 18:00 Lorazepam (Ativan) 0.5 mg Q4H PRN IV ANXIETY; Start 05/30/18 at 12:00 Acetaminophen (Tylenol Tab) 650 mg Q4H PRN PO MILD PAIN(1-3)OR ELEVATED TEMP Last administered on 06/04/18 20:40; Admin Dose 650 MG; Start 05/31/18 at 13:00 Metoclopramide HCl (Reglan) 5 mg Q6 IV Last administered on 06/10/18 12:24; Admin Dose 5 MG; Start 05/31/18 at 13:00 Collagenase (Santyl) 1 applic DAILY TOP Last administered on 06/10/18 08:56; Admin Dose 1 APPLIC; Start 06/01/18 at 09:00 Clonidine (Catapres) 0.1 mg Q6H PRN PO ELEVATED BLOOD PRESSURE; Start 06/03/18 at 03:30 Miscellaneous Information (*Order Clarification Bulletin) MEDICATION REQUIRES CLARIFICATI... Q8H XX Last administered on 06/09/18 21:00; Admin Dose 200 EA; Start 06/05/18 at 21:00 Citric Acid/ Sodium Citrate (Bicitra) 30 ml TID PO Last administered on 06/10/18 12:24; Admin Dose 30 ML; Start 06/06/18 at 13:00 Vancomycin HCl (Vancomycin Oral Syringe) 250 mg Q8 PO Last administered on 06/10/18 14:33; Admin Dose 250 MG; Start 06/06/18 at 22:00 Amiodarone HCl (Cordarone) 200 mg Q8 PO Last administered on 06/10/18 14:33; Admin Dose 200 MG; Start 06/08/18 at 14:00 Metoprolol Tartrate (Lopressor) 75 mg Q8 GTB Last administered on 06/10/18 14: 34; Admin Dose 75 MG; Start 06/08/18 at 14:00 CODY SO MD Jun 10, 2018 16:39
--- NOTE | 2018-06-10 19:40 | PN ---
Date/Time of Note Date/Time of Note DATE: 06/10/18 TIME: 19:39 Assessment/Plan VTE Prophylaxis Risk score (from [facility])>0 risk: 10 SCD applied (from [facility]): Yes SCD contraindicated: other Pharmacological prophylaxis: other Pharm contraindication: other Lines/Catheters IV C[facility]ter Type (from [facility]): PICC Line Central line still needed: Yes Urinary Cath still in place: Yes Reason Cath still needed: urinary retention Assessment/Plan Assessment/Plan - hypokalemia- replace K -Atrial fibrillation was rapid ventricular response, s/p amiodarone drip. Rate is well controlled on p.o. amiodarone and metoprolol. Dr. Scanlon is following in cardiology consultation. -Septic shock secondary to urinary tract infection, anterior neck soft tissue infection, and C. difficile colitis, resolving. Continue antibiotics per ID. Dr. Doyle is following in infection disease consultation. -Acute respiratory failure requiring intubation and ventilatory support. Dr. Lambert is following in pulmonology consultation. -S/p tracheostomy on 05/29/18. -Acute kidney injury on chronic kidney disease. Started on HD this admission. Dr. Mckeon is following in nephrology consultation. -Anemia of chronic inflammation, stool for OB is negative, status post blood transfusion. Continue Epogen. -Metabolic acidosis, resolved. -Acute diastolic congestive heart failure. -Paroxysmal atrial fibrillation -COPD -Dysphagia with PEG. -G-tube mild malfunction, changed by GI Dr. Carolina is following in gas troenterology consultation. -Obesity Result Diagram: 06/10/18 0729 06/10/18 0729 Results 24hrs Laboratory Tests Test 06/09/18 23:35 06/10/18 07:29 Urine Color PRERNA Urine Clarity TURBID A Urine pH 6.0 Urine Specific [place] 1.010 Urine Ketones NEGATIVE Urine Nitrite POSITIVE A Urine Bilirubin NEGATIVE Urine Urobilinogen NEGATIVE Urine Leukocyte Esterase 3+ H Urine Microscopic RBC 37 H Urine Microscopic WBC > 182 H Urine Transitional Epithelial Cells FEW A Urine Bacteria MODERATE Urine Hemoglobin 1+ H Urine Glucose NEGATIVE Urine Total Protein 1+ H White Blood Count 13.5 H Red Blood Count 2.33 L Hemoglobin 7.5 L Hematocrit 25.6 L Mean Corpuscular Volume 109.9 H Mean Corpuscular Hemoglobin 32.2 Mean Corpuscular Hemoglobin Concent 29.3 L Red Cell Distribution Width 22.9 H Platelet Count 325 # Mean Platelet Volume 9.5 Immature Granulocytes % 0.700 H Neutrophils % 81.5 H Lymphocytes % 9.1 L Monocytes % 5.4 Eosinophils % 3.2 Basophils % 0.1 Nucleated Red Blood Cells % 0.2 H Immature Granulocytes # 0.090 H Neutrophils # 11.0 H Lymphocytes # 1.2 Monocytes # 0.7 Eosinophils # 0.4 Basophils # 0.0 Nucleated Red Blood Cells # 0.0 Sodium Level 146 H Potassium Level 3.4 L Chloride Level 115 H Carbon Dioxide Level 22 Anion Gap 9 Blood Urea Nitrogen 67 H Creatinine 1.82 H Est Glomerular Filtrat Rate mL/min Glucose Level 104 Calcium Level 9.3 Phosphorus Level 2.9 Magnesium Level 1.7 Subjective 24 Hr Interval Summary Free Text/Dictation NAD Afebrile H/H stable no new events reported last night dw staff Subjective hx not possible: pt non-verbal Constitutional: requiring IVF, requiring O2 Exam/Review of Systems Exam Vitals Vital Signs Date Temp Pulse Resp B/P (MAP) Pulse Ox O2 O2 Flow FiO2 Time Delivery Rate 06/10/18 106 23 99 30 17:25 06/10/18 98.7 113/69 11:33 (84) 06/09/18 Mechanical 16:06 Ventilator Intake and Output 06/09/18 06/09/18 06/10/18 1515:00 23:00 07:00 IntakeIntake Total 1200 ml OutputOutput Total 890 ml BalanceBalance 310 ml Constitutional: alert, frail Psych: nl mood/affect Eyes: nl lids, nl sclera ENMT: nl external ears & nose Neck: other (trach intact) Respiratory: diminished breath sounds, other Cardiovascular: nl pulses, other Gastrointestinal: soft, other (gt inyact) Musculoskeletal: muscle weakness Extremities: normal pulses Neurological: confused Results Results 24hrs Laboratory Tests Test 06/09/18 23:35 06/10/18 07:29 Urine Color PRERNA Urine Clarity TURBID A Urine pH 6.0 Urine Specific [place] 1.010 Urine Ketones NEGATIVE Urine Nitrite POSITIVE A Urine Bilirubin NEGATIVE Urine Urobilinogen NEGATIVE Urine Leukocyte Esterase 3+ H Urine Microscopic RBC 37 H Urine Microscopic WBC > 182 H Urine Transitional Epithelial Cells FEW A Urine Bacteria MODERATE Urine Hemoglobin 1+ H Urine Glucose NEGATIVE Urine Total Protein 1+ H White Blood Count 13.5 H Red Blood Count 2.33 L Hemoglobin 7.5 L Hematocrit 25.6 L Mean Corpuscular Volume 109.9 H Mean Corpuscular Hemoglobin 32.2 Mean Corpuscular Hemoglobin Concent 29.3 L Red Cell Distribution Width 22.9 H Platelet Count 325 # Mean Platelet Volume 9.5 Immature Granulocytes % 0.700 H Neutrophils % 81.5 H Lymphocytes % 9.1 L Monocytes % 5.4 Eosinophils % 3.2 Basophils % 0.1 Nucleated Red Blood Cells % 0.2 H Immature Granulocytes # 0.090 H Neutrophils # 11.0 H Lymphocytes # 1.2 Monocytes # 0.7 Eosinophils # 0.4 Basophils # 0.0 Nucleated Red Blood Cells # 0.0 Sodium Level 146 H Potassium Level 3.4 L Chloride Level 115 H Carbon Dioxide Level 22 Anion Gap 9 Blood Urea Nitrogen 67 H Creatinine 1.82 H Est Glomerular Filtrat Rate mL/min Glucose Level 104 Calcium Level 9.3 Phosphorus Level 2.9 Magnesium Level 1.7 Medications Medication Current Medications IV Flush (NS 10 ml) 10 ml PRN IV ; Start 05/06/18 at 20:30 Ascorbic Acid (Vitamin C) 500 mg DAILY GTB Last administered on 06/10/18 08:56; Admin Dose 500 MG; Start 05/07/18 at 09:00 Albuterol/ Ipratropium (Duoneb) 3 ml Q2H RESP THERAPY PRN HHN SHORTNESS OF BREATH; Start 05/06/18 at 23:30 Zinc Sulfate (Zinc Sulfate) 220 mg DAILY GTB Last administered on 06/10/18 08:56; Admin Dose 220 MG; Start 05/07/18 at 09:00 Ondansetron HCl (Zofran Tab) 4 mg Q6H PRN GTB NAUSEA AND/OR VOMITING Last administered on 05/31/18 16:47; Admin Dose 4 MG; Start 05/07/18 at 00:15 Multivitamins (Multivitamin) 30 ml DAILY GTB Last administered on 06/10/18 08:56; Admin Dose 30 ML; Start 05/07/18 at 09:00 Miscellaneous Information (Pending Santyl Order For Wound Care) This patient goldman... PRN PRN XX WOUND CARE; Start 05/09/18 at 17:00 Albuterol (Ventolin Hfa) 4 puff Q6H RESP THERAPY INH Last administered on 06/10/18 19:18; Admin Dose 4 PUFF; Start 05/12/18 at 20:00 Ipratropium [place] (Atrovent Hfa) 4 puff Q6H RESP THERAPY INH Last administered on 06/10/18 19:18; Admin Dose 4 PUFF; Start 05/12/18 at 20:00 Heparin Sodium (Porcine) (Heparin (1000 Units/ml)) 2,800 unit AFTER DIALYSIS CATHETER Last administered on 05/29/18 18:24; Admin Dose 2,800 UNIT; Start 05/16/18 at 16:30 Furosemide (Lasix) 40 mg BID DIURETICS IV Last administered on 06/10/18 18:33; Admin Dose 40 MG; Start 05/19/18 at 09:00 Epoetin Zen-epbx (RETACRIT(esrd)) 20,000 unit Tu@1700 SC Last administered on 06/09/18 17:11; Admin Dose 20,000 UNIT; Start 05/19/18 at 17:00 Spironolactone (Aldactone) 50 mg DAILY GTB Last administered on 06/10/18 09:08; Admin Dose 50 MG; Start 05/21/18 at 09:00 Metolazone (Zaroxolyn) 5 mg DAILY@0600 PO Last administered on 05/28/18 05:48; Admin Dose 5 MG; Start 05/22/18 at 09:00; Status Hold Famotidine (Pepcid) 20 mg DAILY PEG Last administered on 06/10/18 08:56; Admin Dose 20 MG; Start 05/23/18 at 09:00 Morphine Sulfate (morphine) 6 mg Q4H PRN PEG SEVERE PAIN LEVEL 7-10 Last administered on 06/09/18 13:59; Admin Dose 6 MG; Start 05/22/18 at 17:00 Albumin Human 100 ml @ 100 mls/hr DURING DIALYSIS PRN IV hypotension on hd Last administered on 05/29/18 14:49; Admin Dose 100 MLS/HR; Start 05/27/18 at 07:30 Cholestyramine Resin (Questran Light) 4 gm 0600,1200,1800,2300 PO Last administered on 06/10/18 18:33; Admin Dose 4 GM; Start 05/27/18 at 18:00 Lorazepam (Ativan) 0.5 mg Q4H PRN IV ANXIETY; Start 05/30/18 at 12:00 Acetaminophen (Tylenol Tab) 650 mg Q4H PRN PO MILD PAIN(1-3)OR ELEVATED TEMP Last administered on 06/04/18 20:40; Admin Dose 650 MG; Start 05/31/18 at 13:00 Metoclopramide HCl (Reglan) 5 mg Q6 IV Last administered on 06/10/18 18:33; Admin Dose 5 MG; Start 05/31/18 at 13:00 Collagenase (Santyl) 1 applic DAILY TOP Last administered on 06/10/18 08:56; Admin Dose 1 APPLIC; Start 06/01/18 at 09:00 Clonidine (Catapres) 0.1 mg Q6H PRN PO ELEVATED BLOOD PRESSURE; Start 06/03/18 at 03:30 Miscellaneous Information (*Order Clarification Bulletin) MEDICATION REQUIRES CLARIFICATI... Q8H XX Last administered on 06/09/18 21:00; Admin Dose 200 EA; Start 06/05/18 at 21:00 Citric Acid/ Sodium Citrate (Bicitra) 30 ml TID PO Last administered on 06/10/18 12:24; Admin Dose 30 ML; Start 06/06/18 at 13:00 Vancomycin HCl (Vancomycin Oral Syringe) 250 mg Q8 PO Last administered on 06/10/18 14:33; Admin Dose 250 MG; Start 06/06/18 at 22:00 Amiodarone HCl (Cordarone) 200 mg Q8 PO Last administered on 06/10/18 14:33; Admin Dose 200 MG; Start 06/08/18 at 14:00 Metoprolol Tartrate (Lopressor) 75 mg Q8 GTB Last administered on 06/10/18 14:34; Admin Dose 75 MG; Start 06/08/18 at 14:00 KERON MORAN Jun 10, 2018 19:40
[2018-06-10] MEDS ORDERED: POTASSIUM CHLORIDE 100 ML IVPB ONE (20:00)
[2018-06-10] MEDS: ACETAMINOPHEN 325 MG TAB PO PRN (21:44)
[2018-06-11] VITALS (24 sets, daily range): BP systolic 97–188; BP diastolic 51–98; PULSE 67–89; RESP 18–30
[2018-06-11] MEDS: METOCLOPRAMIDE 10 MG INJ IV SCH ×5 (00:17→23:16)
[2018-06-11] MEDS: ALBUTEROL HFA 8 GM INHALER INH SCH ×4 (01:00→19:30)
[2018-06-11] MEDS: IPRATROPIUM (HFA) 12.9 GM INHALER INH SCH ×4 (01:00→19:30)
[2018-06-11] MEDS: morphine LIQ (10 MG/5 ML) CUP PEG PRN ×3 (02:00→17:47)
[2018-06-11] MEDS: [UNRECOGNIZED DRUG - REMARK] XX SCH (03:17)
[2018-06-11] MEDS: CHOLESTYRAMINE (LIGHT) 4 GM PACKET PO SCH ×4 (06:08→23:15)
[2018-06-11] MEDS: FUROSEMIDE 40 MG INJ IV SCH (06:12)
[2018-06-11] MEDS: METOPROLOL 25 MG TAB GTB SCH ×3 (06:13→21:21)
[2018-06-11] MEDS: VANCOMYCIN HCL 250 MG/5ML POSYG PO SCH ×3 (06:13→21:20)
[2018-06-11] MEDS: AMIODARONE 200 MG TAB PO SCH ×3 (06:14→21:21)
--- NOTE | 2018-06-11 08:47 | PN ---
DATE: 06/11/2018 SUBJECTIVE: The patient is stable. No events overnight. No fevers, chills, nausea, vomiting. OBJECTIVE: VITAL SIGNS: Blood pressure is 158/83, respirations 23, pulse 80, temperature 98.1. HEENT: Head is normocephalic. NECK: Supple. HEART: Regular rate. LUNGS: Show diminished breath sounds at the base. ABDOMEN: Soft, nontender to palpation without rebound or guarding. EXTREMITIES: Negative for clubbing, cyanosis. Trace edema. DERMATOLOGIC: No rashes. MUSCULOSKELETAL: No joint effusion. NEUROLOGIC: No change in exam. MEDICATIONS: The patient's medications have been reviewed. LABORATORY DATA: Has been reviewed. ASSESSMENT AND PLAN: 1. Nonoliguric acute kidney injury on top of chronic kidney disease stage III/IV with a baseline cre atinine around 2 to 2.5 mg/dL. Etiology of acute kidney injury is secondary to acute tubular necrosi s. The patient is status post hemodialysis. Renal function has stabilized. Continue current treatm ent plan, supportive care, renally dose all medication. 2. Volume overload, improving. Continue diuretic therapy. 3. Hypernatremia, improving. Continue free water flushes. 4. Hypokalemia. Continue to monitor and replete. 5. Metabolic acidosis, improving. Continue Bicitra. 6. Anemia. Monitor hemoglobin and hematocrit levels. Continue Epogen as needed. 7. Mineral bone disorder, monitor calcium and phosphorus levels. 8. Ventilatory dependent respiratory failure. Vent settings and ABG was reviewed. Continue to [facility]. 9. Sepsis status post shock. The patient is completing antibiotic course. 10. Dysphagia. Continue tube feeding. 11. Acute encephalopathy, etiology is toxic metabolic. 12. Lower extremity wounds. Continue wound care. 13. Hypokalemia. Will monitor and replete as needed. Dictated By: JEANA BANSAL DO NR/NTS Conf#: [id number] DID#: [id number] CC: ROLAND GIRON MD; QUINTEN UMAÑA MD;*EndCC*
[2018-06-11] MEDS: BALSAM PERU/CASTOR OIL 60 GM TUBE TOP SCH ×2 (09:14→21:20)
[2018-06-11] MEDS: ASCORBIC ACID 500 MG TAB GTB SCH (09:14)
[2018-06-11] MEDS: COLLAGENASE 5 GM (UD JAR) TOP SCH (09:14)
[2018-06-11] MEDS: FAMOTIDINE 20 MG TAB PEG SCH (09:14)
[2018-06-11] MEDS: CITRIC ACID/NA CITRATE 30 ML CUP PO SCH ×3 (09:14→21:20)
[2018-06-11] MEDS: SPIRONOLACTONE 25 MG TAB GTB SCH (09:14)
[2018-06-11] MEDS: ZINC SULFATE 220 MG CAP GTB SCH (09:14)
[2018-06-11] MEDS: MULTIVITAMINS 30 ML CUP GTB SCH (09:14)
--- NOTE | 2018-06-11 11:01 | CONS ---
Assessment/Plan Assessment/Plan Assessment/Plan (Daily) Assessment and recommendations; 1. Patient admitted for severe bilateral pneumonia having undergone recent decannulation of tracheostomy, now requiring redo tracheostomy and patient is now again ventilator dependent. 2. Renal failure, hemodialysis dependent as well. 3. Critical illness neuropathy/myopathy. 4. Anemia. 5. Status post treatment for severe bilateral pneumonia. Continue current supportive care. Consider transfer to long-term/rehab center. Overall prognosis remains poor. Consultation Date/Type/Reason Admit Date/Time May 06, 2018 at 17:38 Initial Consult Date 05/10/18 Type of Consult Pulmonary/critical care Requesting Provider: ROLAND GIRON MD Date/Time of Note DATE: 06/11/18 TIME: 10:58 24 HR Interval Summary Free Text/Dictation Patient's condition is a stable. she has remained hemodynamically stable. General exam; elderly woman, on ventilator via tracheostomy, awake and alert. Currently in no distress. Exam/Review of Systems Exam Vitals Vital Signs Date Temp Pulse Resp B/P (MAP) Pulse Ox O2 O2 Flow FiO2 Time Delivery Rate 06/11/18 79 21 100 30 09:25 06/11/18 98.1 07:49 06/11/18 158/83 07:38 (108) 06/09/18 Mechanical 16:06 Ventilator Intake and Output 06/10/18 06/10/18 06/11/18 1515:00 23:00 07:00 IntakeIntake Total 950 ml OutputOutput Total 1050 ml BalanceBalance -100 ml Exam H EENT exam; supple neck, no JVD. No lymphadenopathy. Midline trachea. No thyromegaly. Tracheostomy in place. Chest exam; diminished breath sounds bilaterally. S1-S2 audible, no murmurs. Regular rhythm. Abdomen exam; soft, no organomegaly. Nontender. G-tube in place. Bowel sound audible. Extremity exam; no peripheral edema or clubbing. Patient does have patchy ecchymosis. [employer] exam; patient awake and follows simple commands, moves all 4 extremities. Results Result Diagram: 06/11/18 0737 06/11/18 0737 Results 24hrs Laboratory Tests Test 06/11/18 07:37 White Blood Count 15.9 H Red Blood Count 2.34 L Hemoglobin 7.6 L Hematocrit 25.8 L Mean Corpuscular Volume 110.3 H Mean Corpuscular Hemoglobin 32.5 Mean Corpuscular Hemoglobin Concent 29.5 L Red Cell Distribution Width 22.7 H Platelet Count 310 Mean Platelet Volume 9.5 Immature Granulocytes % 0.900 H Neutrophils % 83.7 H Lymphocytes % 7.4 L Monocytes % 4.8 Eosinophils % 3.0 Basophils % 0.2 Nucleated Red Blood Cells % 0.2 H Immature Granulocytes # 0.140 H Neutrophils # 13.3 H Lymphocytes # 1.2 Monocytes # 0.8 Eosinophils # 0.5 Basophils # 0.0 Nucleated Red Blood Cells # 0.0 Sodium Level 148 H Potassium Level 3.5 Chloride Level 117 H Carbon Dioxide Level 20 L Anion Gap 11 Blood Urea Nitrogen 72 H Creatinine 1.94 H Est Glomerular Filtrat Rate mL/min Glucose Level 121 Calcium Level 9.5 Phosphorus Level 2.8 Magnesium Level 1.7 Medications Medication Current Medications IV Flush (NS 10 ml) 10 ml PRN IV ; Start 05/06/18 at 20:30 Ascorbic Acid (Vitamin C) 500 mg DAILY GTB Last administered on 06/11/18 09:14; Admin Dose 500 MG; Start 05/07/18 at 09:00 Albuterol/ Ipratropium (Duoneb) 3 ml Q2H RESP THERAPY PRN HHN SHORTNESS OF BREATH; Start 05/06/18 at 23:30 Zinc Sulfate (Zinc Sulfate) 220 mg DAILY GTB Last administered on 06/11/18 09:14; Admin Dose 220 MG; Start 05/07/18 at 09:00 Ondansetron HCl (Zofran Tab) 4 mg Q6H PRN GTB NAUSEA AND/OR VOMITING Last administered on 05/31/18at 16:47; Admin Dose 4 MG; Start 05/07/18 at 00:15 Multivitamins (Multivitamin) 30 ml DAILY GTB Last administered on 06/11/18 09:14; Admin Dose 30 ML; Start 05/07/18 at 09:00 [facility] This patient goldman... PRN PRN XX WOUND CARE; Start 05/09/18 at 17:00 Albuterol (Ventolin Hfa) 4 puff Q6H RESP THERAPY INH Last administered on 06/11/18 07:19; Admin Dose 4 PUFF; Start 05/12/18 at 20:00 Ipratropium [place] (Atrovent Hfa) 4 puff Q6H RESP THERAPY INH Last administered on 06/11/18 07:18; Admin Dose 4 PUFF; Start 05/12/18 at 20:00 Heparin Sodium (Porcine) (Heparin (1000 Units/ml)) 2,800 unit AFTER DIALYSIS CATHETER Last administered on 05/29/18 18:24; Admin Dose 2,800 UNIT; Start 05/16/18 at 16:30 Epoetin Zen-epbx (RETACRIT(esrd)) 20,000 unit Tu@1700 SC Last administered on 06/09/18 17:11; Admin Dose 20,000 UNIT; Start 05/19/18 at 17:00 Spironolactone (Aldactone) 50 mg DAILY GTB Last administered on 06/11/18 09:14; Admin Dose 50 MG; Start 05/21/18 at 09:00 Famotidine (Pepcid) 20 mg DAILY PEG Last administered on 06/11/18 09:14; Admin Dose 20 MG; Start 05/23/18 at 09:00 Morphine Sulfate (morphine) 6 mg Q4H PRN PEG SEVERE PAIN LEVEL 7-10 Last administered on 06/11/18 02:00; Admin Dose 6 MG; Start 05/22/18 at 17:00 Albumin Human 100 ml @ 100 mls/hr DURING DIALYSIS PRN IV hypotension on hd Last administered on 05/29/18 14:49; Admin Dose 100 MLS/HR; Start 05/27/18 at 07:30 Cholestyramine Resin (Questran Light) 4 gm 0600,1200,1800,2300 PO Last administered on 06/11/18 06:08; Admin Dose 4 GM; Start 05/27/18 at 18:00 Lorazepam (Ativan) 0.5 mg Q4H PRN IV ANXIETY; Start 05/30/18 at 12:00 Acetaminophen (Tylenol Tab) 650 mg Q4H PRN PO MILD PAIN(1-3)OR ELEVATED TEMP Last administered on 06/10/18 21:44; Admin Dose 650 MG; Start 05/31/18 at 13:00 Metoclopramide HCl (Reglan) 5 mg Q6 IV Last administered on 06/11/18 06:13; Admin Dose 5 MG; Start 05/31/18 at 13:00 Collagenase (Santyl) 1 applic DAILY TOP Last administered on 06/11/18 09:14; Admin Dose 1 APPLIC; Start 06/01/18 at 09:00 Clonidine (Catapres) 0.1 mg Q6H PRN PO ELEVATED BLOOD PRESSURE Last administered on 06/11/18 06:24; Admin Dose 0.1 MG; Start 06/03/18 at 03:30 Citric Acid/ Sodium Citrate (Bicitra) 30 ml TID PO Last administered on 06/11/18 09:14; Admin Dose 30 ML; Start 06/06/18 at 13:00 Vancomycin HCl (Vancomycin Oral Syringe) 250 mg Q8 PO Last administered on 06/11/18 06:13; Admin Dose 250 MG; Start 06/06/18 at 22:00 Amiodarone HCl (Cordarone) 200 mg Q8 PO Last administered on 06/11/18 06:14; Admin Dose 200 MG; Start 06/08/18 at 14:00 Metoprolol Tartrate (Lopressor) 75 mg Q8 GTB Last administered on 06/11/18 06:13; Admin Dose 75 MG; Start 06/08/18 at 14:00 Bumetanide (Bumex) 1 mg BID DIURETICS GTB ; Start 06/11/18 at 18:00 ELOISA LAURA Jun 11, 2018 11:01
--- NOTE | 2018-06-11 13:11 | CONS ---
[facility] HCIS Consult Follow-up Patient Name: Zuly Mcwilliams Unit Number: [id number] Date of : 1945 Patient Status: Admitted Inpatient Attending Doctor: Roland Giron MD Edit: CELESTINE SANCHEZ M.D. on 06/11/18 @ 21:19 Daniel: I discussed the management with AUDIT LEAD Meredith and agree Assessment/Plan Assessment/Plan Hospital Course (Demo Recall) # sepsis, leukocytosis, SIRS, pulmonary, cardiac - recurrent leukocytosis due to UTI - s/p septic shock due to pneumonia and C diff colitis - acute on chronic hypoxic respiratory failure, persistent - s/p reintubation 05/12/2018 - s/p re-do trach on 05/29/2018 - recurrent colonization of the anterior neck wound with ESBL+kleb, MRSA, GBS, corynebacteria on 05/06/2018 -s/p meropenem - h/o pneumonia vs. colonization of the airway by pseudomonas and ESBL+klebsiella - h/o possible, recurrent HCAP due to pseudomonas and ESBL+klebsiella - h/o recurrent HCAP due to MRSA and Enterobacter (culture of tracheal aspirate on 07/16/2017 that was collected at [facility]) . Pt took vancomycin and ceftazidime - h/o decannulation prior to admission - h/o tracheostomy on 06/11/2017 - h/o SIRS from UGIB in 2018 - h/o thoracentesis on 07/18/2017, transudative (protein <2, LDH 279) - h/o bleeding from the trach site in 2018 - h/o septic shock due to pneumonia, ARDS, bacteremia, fungemia in 2018 - h/o ARDS in 2018 - h/o smoking - COPD - h/o ILD per medical record - h/o PAF, improved # GI - C diff colitis, diagnosed on 05/11/2018 - h/o intermittent diarrhea, Pt had multiple negative C. diff tests at [facility] at OSH in the past; none was positive until 05/11/2018 - dysphagia - h/o PEG placement 06/13/2018 - protein calorie malnutrition - h/o coffee ground emesis/UGIB on 12/23/2017 due to deep ulceration of distal esophagus and gastritis on EGD 12/26/2017. No e/o H. pylori - h/o possible appendicitis on CT on 11/22/2017, Pt took ertapenem (11/24/2017- 12/01/2017) - h/o extensive adhesions lower abdominal and pelvis between small bowel to each other and to colon and to abdominal wall, anterior pelvic wall chronic abscess secondary to probably an old perforated diverticulitis, torsion of small bowel around these dense adhesion causing multiple obstructive points - h/o laparoscopic exploration and extensive lysis of adhesions and drainage of anterior pelvic wall abscess 09/16/2017. Cultures were negative, no e/o malignancy. Pt took pip/tazo (09/16/2017-09/26/2017) - h/o EGD and exchange of PEG on 09/01/2017 - h/o partial obstruction mid jejunum in L anterior central pelvis with suggestion of a 3 cm soft tissue mass on CT 08/28/2017 - h/o internal stomal deep ulcer behind the internal bumper, gastritis and esophagitis, Rodriguez's cannot be ruled out, per EGD with biopsy 07/23/2017 - h/o GIB s/p flex sig showed polyp; stool OB negative on 06/29/17 - h/o stool OB positive status - h/o SBO and ileus due to pain meds - h/o mildly elevated CEA # renal/ - UTI due to Klebsiella and Pseudomonas with sensitivities pending 06/09/2018 - anasarca - started on HD on 05/15/2018, via Juan in R groin - recurrent NATHAN on CKD - 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 Her strain of CRE was sensitive to colistin, Avycaz, and Vabomere but resistant to Zerbaxa (reported on 05/19/2018) - Hyponatremia - Hyperkalemia, now hypokalemia - Metabolic acidosis - adrenal insufficiency - h/o vaginal bleed in 2018 - h/o colonization of urinary tract by ESBL+klebsiella, VRE - h/o recurrent, symptomatic UTI due to carbapenem-resistant kleb (MDR strain) per urine culture 10/04/17, 10/09/17, 10/21/2017, P took colistin (10/09/2017- 10/15/2017), fosfomycin for carbapenemase-producing klebsiella and VRE on 10/25/2017 and 10/28/2017 - h/o funguria - h/o urinary retention # fungemia, bacteremia 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 improved. Probable manifestation of endocarditis. Pt declined MRI on 08/06/2017 - h/o infection of R toes due to pseudomonas. coagulase negative Staph likely a colonizer - h/o intertrigo of the groin, resolved with nystatin powder - h/o scabies, locally crusted lesion over L scapula, s/p permethrin cream and pGT ivermectin on 08/11/2017, 08/12/2017, 08/19/2017. Repeat skin scraping on 08/21/2017 was negative for scabies # psych, neuro - acute toxic metabolic encephalopathy - improving - decreased hearing b/l - h/o critical illness polyneuropathy - anxiety/depression, bipolar d/o, seen by Psychiatry in the past - chronic pain syndrome - h/o medical non-compliance: she would refuse her medications, treatment and s traight catheterization in 2018 # hematological, vascular - chronic anemia requiring blood transfusion intermittently - Macrocytic anemia - 3.1 cm AAA on imaging - PVD Recommendations: - pending results: sensitivities of gram negative bacteria in urine culture - Pt got one dose of fosfomycin on 06/10/2018. We will review the final result of urine culture and sensitivities and determine her antibiotic - continue pGT tid vancomycin (05/11/2018-) for C. diff colitis; s/p IV me tronidazole (05/11/2018-05/29/2018; restart 05/30/2018-06/05/18); Pt completed meropenem for HCAP (05/13/2018-05/19/2018) - will continue slow tapering next week: 06/15/2018-06/21/2018 bid, 06/22-06/28: daily, 06/29-07/05: q48hrs Management d/w Pt, RN Leslie, and with Dr. Sanchez Consultation Date/Type/Reason Admit Date/Time May 06, 2018 at 17:38 Initial Consult Date 05/07/18 Type of Consult Infectious Disease Requesting Provider: ROLAND GIRON MD Date/Time of Note DATE: 06/11/18 TIME: 13:07 24 HR Interval Summary Free Text/Dictation Pt c/o abdominal pain, nausea, and SOB. Pt was recently given pain med and Reglan per d/w pt's RN. Subjective hx not possible: pt non-verbal Exam/Review of Systems Exam Vitals Vital Signs Date Temp Pulse Resp B/P (MAP) Pulse Ox O2 O2 Flow FiO2 Time Delivery Rate 06/11/18 97.6 84 20 160/85 100 11:46 (110) 06/11/18 30 11:02 06/09/18 Mechanical 16:06 Ventilator Intake and Output 06/10/18 06/10/18 06/11/18 1515:00 23:00 07:00 IntakeIntake Total 950 ml OutputOutput Total 1050 ml BalanceBalance -100 ml Constitutional: alert, well developed, non-verbal, frail, obese Psych: nl mood/affect Head: normocephalic, atraumatic Eyes: nl conjunctiva, nl lids, nl sclera ENMT: nl external ears & nose, nl nasal mucosa & septum, other (pt declines to open mouth for examination) Neck: other (+trach conneceted to ventilator support) Respiratory: crackles/rales Cardiovascular: regular rate and rhythm, nl pulses Gastrointestinal: soft, non-tender, other (+GT; Flexiseal with liquid brown stool) Genitourinary - Female: other (+Garza) Musculoskeletal: nl extremities to inspection; No swelling Neurological: other (non-verbal; nods to simple questions) Skin: nl turgor, other (LLE dressing c/d/i) Results Result Diagram: 06/11/1837 06/11/18 0737 Results 24hrs Laboratory Tests Test 06/11/18 07:37 White Blood Count 15.9 H Red Blood Count 2.34 L Hemoglobin 7.6 L Hematocrit 25.8 L Mean Corpuscular Volume 110.3 H Mean Corpuscular Hemoglobin 32.5 Mean Corpuscular Hemoglobin Concent 29.5 L Red Cell Distribution Width 22.7 H Platelet Count 310 Mean Platelet Volume 9.5 Immature Granulocytes % 0.900 H Neutrophils % 83.7 H Lymphocytes % 7.4 L Monocytes % 4.8 Eosinophils % 3.0 Basophils % 0.2 Nucleated Red Blood Cells % 0.2 H Immature Granulocytes # 0.140 H Neutrophils # 13.3 H Lymphocytes # 1.2 Monocytes # 0.8 Eosinophils # 0.5 Basophils # 0.0 Nucleated Red Blood Cells # 0.0 Sodium Level 148 H Potassium Level 3.5 Chloride Level 117 H Carbon Dioxide Level 20 L Anion Gap 11 Blood Urea Nitrogen 72 H Creatinine 1.94 H Est Glomerular Filtrat Rate mL/min Glucose Level 121 Calcium Level 9.5 Phosphorus Level 2.8 Magnesium Level 1.7 Imaging Imaging Abd X-ray 06/10/2018: FINDINGS: The visualized lung bases demonstrate bilateral reticular nodular interstitial changes. Small bilateral pleural effusions are noted. Mild cardiomegaly is present. A nonobstructive bowel gas pattern is present. No definite evidence for pneumoperitoneum or ascites is present. The presence of a gastrostomy tube and Garza catheter is noted. No air-fluid levels are seen. No free air is e vident. No abnormal calcifications project over the renal collecting systems. The osseus structures are remarkable for mild degenerative enthesopathy of the imaged spine. Vascular calcifications are present of the abdominal aorta and bilateral common iliac arteries. IMPRESSION: 1. Nonobstructive bowel gas pattern 2. Gastrostomy tube and Garza catheter as described above. 3. Bilateral diffuse reticulonodular interstitial infiltrates and small bilateral pleural effusions 4. Mild cardiomegaly Medications Medication Current Medications IV Flush (NS 10 ml) 10 ml PRN IV ; Start 05/06/18 at 20:30 Ascorbic Acid (Vitamin C) 500 mg DAILY GTB Last administered on 06/11/18 09:14; Admin Dose 500 MG; Start 05/07/18 at 09:00 Albuterol/ Ipratropium (Duoneb) 3 ml Q2H RESP THERAPY PRN HHN SHORTNESS OF BREATH; Start 05/06/18 at 23:30 Zinc Sulfate (Zinc Sulfate) 220 mg DAILY GTB Last administered on 06/11/18 09:14; Admin Dose 220 MG; Start 05/07/18 at 09:00 Ondansetron HCl (Zofran Tab) 4 mg Q6H PRN GTB NAUSEA AND/OR VOMITING Last a dministered on 05/31/18 16:47; Admin Dose 4 MG; Start 05/07/18 at 00:15 Multivitamins (Multivitamin) 30 ml DAILY GTB Last administered on 06/11/18 09:14; Admin Dose 30 ML; Start 05/07/18 at 09:00 Miscellaneous Information (Pending [facility] Order For Wound Care) This patient goldman... PRN PRN XX WOUND CARE; Start 05/09/18 at 17:00 Albuterol (Ventolin Hfa) 4 puff Q6H RESP THERAPY INH Last administered on 06/11/18 13:02; Admin Dose 4 PUFF; Start 05/12/18 at 20:00 Ipratropium [place] (Atrovent Hfa) 4 puff Q6H RESP THERAPY INH Last administered on 06/11/18 13:01; Admin Dose 4 PUFF; Start 05/12/18 at 20:00 Heparin Sodium (Porcine) (Heparin (1000 Units/ml)) 2,800 unit AFTER DIALYSIS CATHETER Last administered on 05/29/18 18:24; Admin Dose 2,800 UNIT; Start 05/16/18 at 16:30 Epoetin Zen-epbx (RETACRIT(esrd)) 20,000 unit Tu@1700 SC Last administered on 06/09/18 17:11; Admin Dose 20,000 UNIT; Start 05/19/18 at 17:00 Spironolactone (Aldactone) 50 mg DAILY GTB Last administered on 06/11/18 09:14; Admin Dose 50 MG; Start 05/21/18 at 09:00 Famotidine (Pepcid) 20 mg DAILY PEG Last administered on 06/11/18 09:14; Admin Dose 20 MG; Start 05/23/18 at 09:00 Morphine Sulfate (morphine) 6 mg Q4H PRN PEG SEVERE PAIN LEVEL 7-10 Last administered on 06/11/18 11:39; Admin Dose 6 MG; Start 05/22/18 at 17:00 Albumin Human 100 ml @ 100 mls/hr DURING DIALYSIS PRN IV hypotension on hd Last administered on 05/29/18 14:49; Admin Dose 100 MLS/HR; Start 05/27/18 at 07:30 Cholestyramine Resin (Questran Light) 4 gm 0600,1200,1800,2300 PO Last administered on 06/11/18 12:18; Admin Dose 4 GM; Start 05/27/18 at 18:00 Lorazepam (Ativan) 0.5 mg Q4H PRN IV ANXIETY; Start 05/30/18 at 12:00 Acetaminophen (Tylenol Tab) 650 mg Q4H PRN PO MILD PAIN(1-3)OR ELEVATED TEMP Last administered on 06/10/18 21:44; Admin Dose 650 MG; Start 05/31/18 at 13:00 Metoclopramide HCl (Reglan) 5 mg Q6 IV Last administered on 06/11/18 11:39; Admin Dose 5 MG; Start 05/31/18 at 13:00 Collagenase (Santyl) 1 applic DAILY TOP Last administered on 06/11/18 09:14; Admin Dose 1 APPLIC; Start 06/01/18 at 09:00 Clonidine (Catapres) 0.1 mg Q6H PRN PO ELEVATED BLOOD PRESSURE Last administered on 06/11/18 06:24; Admin Dose 0.1 MG; Start 06/03/18 at 03:30 Citric Acid/ Sodium Citrate (Bicitra) 30 ml TID PO Last administered on 06/11/18at 12:18; Admin Dose 30 ML; Start 06/06/18 at 13:00 Vancomycin HCl (Vancomycin Oral Syringe) 250 mg Q8 PO Last administered on 06/11/18at 06:13; Admin Dose 250 MG; Start 06/06/18 at 22:00 Amiodarone HCl (Cordarone) 200 mg Q8 PO Last administered on 06/11/18at 06:14; Admin Dose 200 MG; Start 06/08/18 at 14:00 Metoprolol Tartrate (Lopressor) 75 mg Q8 GTB Last administered on 06/11/18at 06:13; Admin Dose 75 MG; Start 06/08/18 at 14:00 Bumetanide (Bumex) 1 mg BID DIURETICS GTB ; Start 06/11/18 at 18:00 LAURA JOSHI NP Jun 11, 2018 13:11
--- NOTE | 2018-06-11 16:01 | PN ---
Date/Time of Note Date/Time of Note DATE: 06/11/18 TIME: 15:58 Assessment/Plan VTE Prophylaxis [place] [facility] risk: 9 SCD applied [place] [facility] Yes SCD contraindicated: other Pharmacological prophylaxis: other Lines/Catheters IV Catheter Type (from [facility]): PICC Line Central line still needed: Yes Urinary Cath still in place: Yes Reason Cath still needed: urinary retention Assessment/Plan Assessment/Plan - Hypokalemia- resolved -Atrial fibrillation was rapid ventricular response, s/p amiodarone drip. Rate is well controlled on p.o. amiodarone and metoprolol. - Dr. Scanlon is following in cardiology consultation. -Septic shock secondary to urinary tract infection, anterior neck soft tissue infection, and C. difficile colitis, resolving. - Continue antibiotics per ID. Dr. Brian Doyle is following in infection disease consultation. -Acute respiratory failure requiring intubation and ventilatory support. - Dr. Lambert is following in pulmonology consultation. -S/p tracheostomy on 05/29/18. -Acute kidney injury on chronic kidney disease. Started on HD this admission. - Dr. Mckeon is following in nephrology consultation. -Anemia of chronic inflammation, stool for OB is negative, status post blood transfusion. Continue Epogen. -Metabolic acidosis, resolved. -Acute diastolic congestive heart failure. -Paroxysmal atrial fibrillation -COPD -Dysphagia with PEG. -G-tube mild malfunction, changed by GI Dr. Carolina is following in gastroenterology consultation. -Obesity Patient is seen in collaboration with Dr Eisenberg. staff Result Diagram: 06/11/18 0737 06/11/18 0737 Results 24hrs Laboratory Tests Test 06/11/18 07:37 White Blood Count 15.9 H Red Blood Count 2.34 L Hemoglobin 7.6 L Hematocrit 25.8 L Mean Corpuscular Volume 110.3 H Mean Corpuscular Hemoglobin 32.5 Mean Corpuscular Hemoglobin Concent 29.5 L Red Cell Distribution Width 22.7 H Platelet Count 310 Mean Platelet Volume 9.5 Immature Granulocytes % 0.900 H Neutrophils % 83.7 H Lymphocytes % 7.4 L Monocytes % 4.8 Eosinophils % 3.0 Basophils % 0.2 Nucleated Red Blood Cells % 0.2 H Immature Granulocytes # 0.140 H Neutrophils # 13.3 H Lymphocytes # 1.2 Monocytes # 0.8 Eosinophils # 0.5 Basophils # 0.0 Nucleated Red Blood Cells # 0.0 Sodium Level 148 H Potassium Level 3.5 Chloride Level 117 H Carbon Dioxide Level 20 L Anion Gap 11 Blood Urea Nitrogen 72 H Creatinine 1.94 H Est Glomerular Filtrat Rate mL/min Glucose Level 121 Calcium Level 9.5 Phosphorus Level 2.8 Magnesium Level 1.7 Subjective 24 Hr Interval Summary Free Text/Dictation nad Leukocytosis; afebrile Hyperkalemia CR1.94 TODAY refuses ADLs at times no new events reported last night dw staff Subjective hx not possible: pt non-verbal Constitutional: requiring O2 Exam/Review of Systems Exam Vitals Vital Signs Date Temp Pulse Resp B/P (MAP) Pulse Ox O2 O2 Flow FiO2 Time Delivery Rate 06/11/18 66 23 100 30 15:20 06/11/18 97.6 160/85 11:46 (110) 06/09/18 Mechanical 16:06 Ventilator Intake and Output 06/10/18 06/10/18 06/11/18 1414:59 22:59 06:59 IntakeIntake Total 950 ml OutputOutput Total 1050 ml BalanceBalance -100 ml Constitutional: alert, non-verbal, frail Psych: nl mood/affect Eyes: nl lids, nl sclera ENMT: nl external ears & nose Neck: other (trach inatct) Respiratory: clear to auscultation, other Cardiovascular: nl pulses, other (s1s2) Gastrointestinal: soft, non-tender, other (gt intact) Musculoskeletal: joint tenderness, muscle weakness, range of motion Extremities: normal pulses Neurological: confused Skin: other Results Results 24hrs Laboratory Tests Test 06/11/18 07:37 White Blood Count 15.9 H Red Blood Count 2.34 L Hemoglobin 7.6 L Hematocrit 25.8 L Mean Corpuscular Volume 110.3 H Mean Corpuscular Hemoglobin 32.5 Mean Corpuscular Hemoglobin Concent 29.5 L Red Cell Distribution Width 22.7 H Platelet Count 310 Mean Platelet Volume 9.5 Immature Granulocytes % 0.900 H Neutrophils % 83.7 H Lymphocytes % 7.4 L Monocytes % 4.8 Eosinophils % 3.0 Basophils % 0.2 Nucleated Red Blood Cells % 0.2 H Immature Granulocytes # 0.140 H Neutrophils # 13.3 H Lymphocytes # 1.2 Monocytes # 0.8 Eosinophils # 0.5 Basophils # 0.0 Nucleated Red Blood Cells # 0.0 Sodium Level 148 H Potassium Level 3.5 Chloride Level 117 H Carbon Dioxide Level 20 L Anion Gap 11 Blood Urea Nitrogen 72 H Creatinine 1.94 H Est Glomerular Filtrat Rate mL/min Glucose Level 121 Calcium Level 9.5 Phosphorus Level 2.8 Magnesium Level 1.7 Medications Medication Current Medications IV Flush (NS 10 ml) 10 ml PRN IV ; Start 05/06/18 at 20:30 Ascorbic Acid (Vitamin C) 500 mg DAILY GTB Last administered on 06/11/18 09:14; Admin Dose 500 MG; Start 05/07/18 at 09:00 Albuterol/ Ipratropium (Duoneb) 3 ml Q2H RESP THERAPY PRN HHN SHORTNESS OF BREATH; Start 05/06/18 at 23:30 Zinc Sulfate (Zinc Sulfate) 220 mg DAILY GTB Last administered on 06/11/18 09:14; Admin Dose 220 MG; Start 05/07/18 at 09:00 Ondansetron HCl (Zofran Tab) 4 mg Q6H PRN GTB NAUSEA AND/OR VOMITING Last administered on 05/31/18 16:47; Admin Dose 4 MG; Start 05/07/18 at 00:15 Multivitamins (Multivitamin) 30 ml DAILY GTB Last administered on 06/11/18 09: 14; Admin Dose 30 ML; Start 05/07/18 at 09:00 Miscellaneous Information (Pending Santyl Order For Wound Care) This patient goldman... PRN PRN XX WOUND CARE; Start 05/09/18 at 17:00 Albuterol (Ventolin Hfa) 4 puff Q6H RESP THERAPY INH Last administered on 06/11/18 13:02; Admin Dose 4 PUFF; Start 05/12/18 at 20:00 Ipratropium [place] (Atrovent Hfa) 4 puff Q6H RESP THERAPY INH Last administered on 06/11/18 13:01; Admin Dose 4 PUFF; Start 05/12/18 at 20:00 Heparin Sodium (Porcine) (Heparin (1000 Units/ml)) 2,800 unit AFTER DIALYSIS CATHETER Last administered on 05/29/18 18:24; Admin Dose 2,800 UNIT; Start 05/16/18 at 16:30 Epoetin Zen-epbx (RETACRIT(esrd)) 20,000 unit Tu@1700 SC Last administered on 06/09/18 17:11; Admin Dose 20,000 UNIT; Start 05/19/18 at 17:00 Spironolactone (Aldactone) 50 mg DAILY GTB Last administered on 06/11/18 09:14; Admin Dose 50 MG; Start 05/21/18 at 09:00 Famotidine (Pepcid) 20 mg DAILY PEG Last administered on 06/11/18 09:14; Admin Dose 20 MG; Start 05/23/18 at 09:00 Morphine Sulfate (morphine) 6 mg Q4H PRN PEG SEVERE PAIN LEVEL 7-10 Last administered on 06/11/18 11:39; Admin Dose 6 MG; Start 05/22/18 at 17:00 Albumin Human 100 ml @ 100 mls/hr DURING DIALYSIS PRN IV hypotension on hd Last administered on 05/29/18 14:49; Admin Dose 100 MLS/HR; Start 05/27/18 at 07:30 Cholestyramine Resin (Questran Light) 4 gm 0600,1200,1800,2300 PO Last admin istered on 06/11/18 12:18; Admin Dose 4 GM; Start 05/27/18 at 18:00 Lorazepam (Ativan) 0.5 mg Q4H PRN IV ANXIETY; Start 05/30/18 at 12:00 Acetaminophen (Tylenol Tab) 650 mg Q4H PRN PO MILD PAIN(1-3)OR ELEVATED TEMP Last administered on 06/10/18 21:44; Admin Dose 650 MG; Start 05/31/18 at 13:00 Metoclopramide HCl (Reglan) 5 mg Q6 IV Last administered on 06/11/18 11:39; Admin Dose 5 MG; Start 05/31/18 at 13:00 Collagenase (Santyl) 1 applic DAILY TOP Last administered on 06/11/18 09:14; Admin Dose 1 APPLIC; Start 06/01/18 at 09:00 Clonidine (Catapres) 0.1 mg Q6H PRN PO ELEVATED BLOOD PRESSURE Last administered on 06/11/18 06:24; Admin Dose 0.1 MG; Start 06/03/18 at 03:30 Citric Acid/ Sodium Citrate (Bicitra) 30 ml TID PO Last administered on 06/11/18 12:18; Admin Dose 30 ML; Start 06/06/18 at 13:00 Vancomycin HCl (Vancomycin Oral Syringe) 250 mg Q8 PO Last administered on 06/11/18 13:28; Admin Dose 250 MG; Start 06/06/18 at 22:00 Amiodarone HCl (Cordarone) 200 mg Q8 PO Last administered on 06/11/18 13:27; Admin Dose 200 MG; Start 06/08/18 at 14:00 Metoprolol Tartrate (Lopressor) 75 mg Q8 GTB Last administered on 06/11/18 13:28; Admin Dose 75 MG; Start 06/08/18 at 14:00 Bumetanide (Bumex) 1 mg BID DIURETICS GTB ; Start 06/11/18 at 18:00 KERON MORAN Jun 11, 2018 16:01
[2018-06-11] MEDS: BUMETANIDE 1 MG TAB GTB SCH (17:26)
--- NOTE | 2018-06-11 17:44 | CONS ---
Assessment/Plan Assessment/Plan Assessment/Plan (Daily) Septic as well as hemorrhagic shock-improving Acute respiratory failure status post intubation Acute blood loss anemia Septic shock and hemorrhagic shock History of respiratory failure status post decannulation Preserved ejection fraction echocardiogram 05/10/2018 Paroxysmal atrial fibrillation Acute kidney injury -Patient with paroxysmal atrial fibrillation, has remained sinus after increased beta-tin and amiodarone yesterday -Vent management as per pulmonary -Fluid management and electrolytes as per renal -Antibiotics as per infectious disease -No anticoagulation given recurrent anemia requiring blood transfusions Consultation Date/Type/Reason Admit Date/Time May 06, 2018 at 17:38 Initial Consult Date 05/10/18 Type of Consult Cardiology Requesting Provider: ROLAND GIRON MD Date/Time of Note the apint with no cahgne 24 HR Interval Summary Free Text/Dictation The patient stable overnight Exam/Review of Systems Vital Signs Vitals Vital Signs Date Temp Pulse Resp B/P (MAP) Pulse Ox O2 O2 Flow FiO2 Time Delivery Rate 06/11/18 65 21 100 30 17:10 06/11/18 97.9 97/52 (67) 16:34 06/09/18 Mechanical 16:06 Ventilator Intake and Output 06/10/18 06/10/18 06/11/18 1515:00 23:00 07:00 IntakeIntake Total 950 ml OutputOutput Total 1050 ml BalanceBalance -100 ml Labs Result Diagram: 06/11/18 0737 06/11/18 0737 Results 24hrs Laboratory Tests Test 06/11/18 07:37 White Blood Count 15.9 H Red Blood Count 2.34 L Hemoglobin 7.6 L Hematocrit 25.8 L Mean Corpuscular Volume 110.3 H Mean Corpuscular Hemoglobin 32.5 Mean Corpuscular Hemoglobin Concent 29.5 L Red Cell Distribution Width 22.7 H Platelet Count 310 Mean Platelet Volume 9.5 Immature Granulocytes % 0.900 H Neutrophils % 83.7 H Lymphocytes % 7.4 L Monocytes % 4.8 Eosinophils % 3.0 Basophils % 0.2 Nucleated Red Blood Cells % 0.2 H Immature Granulocytes # 0.140 H Neutrophils # 13.3 H Lymphocytes # 1.2 Monocytes # 0.8 Eosinophils # 0.5 Basophils # 0.0 Nucleated Red Blood Cells # 0.0 Sodium Level 148 H Potassium Level 3.5 Chloride Level 117 H Carbon Dioxide Level 20 L Anion Gap 11 Blood Urea Nitrogen 72 H Creatinine 1.94 H Est Glomerular Filtrat Rate mL/min Glucose Level 121 Calcium Level 9.5 Phosphorus Level 2.8 Magnesium Level 1.7 Medications Medications Current Medications IV Flush (NS 10 ml) 10 ml PRN IV ; Start 05/06/18 at 20:30 Ascorbic Acid (Vitamin C) 500 mg DAILY GTB Last administered on 06/11/18 09:14; Admin Dose 500 MG; Start 05/07/18 at 09:00 Albuterol/ Ipratropium (Duoneb) 3 ml Q2H RESP THERAPY PRN HHN SHORTNESS OF BREATH; Start 05/06/18 at 23:30 Zinc Sulfate (Zinc Sulfate) 220 mg DAILY GTB Last administered on 06/11/18 09:14; Admin Dose 220 MG; Start 05/07/18 at 09:00 Ondansetron HCl (Zofran Tab) 4 mg Q6H PRN GTB NAUSEA AND/OR VOMITING Last administered on 05/31/18 16:47; Admin Dose 4 MG; Start 05/07/18 at 00:15 Multivitamins (Multivitamin) 30 ml DAILY GTB Last administered on 06/11/18 09:14; Admin Dose 30 ML; Start 05/07/18 at 09:00 Miscellaneous Information (Pending [facility] Order For Wound Care) This patient goldman... PRN PRN XX WOUND CARE; Start 05/09/18 at 17:00 Albuterol (Ventolin Hfa) 4 puff Q6H RESP THERAPY INH Last administered on 06/11/18 13:02; Admin Dose 4 PUFF; Start 05/12/18 at 20:00 Ipratropium [place] (Atrovent Hfa) 4 puff Q6H RESP THERAPY INH Last administered on 06/11/18 13:01; Admin Dose 4 PUFF; Start 05/12/18 at 20:00 Heparin Sodium (Porcine) (Heparin (1000 Units/ml)) 2,800 unit AFTER DIALYSIS CATHETER Last administered on 05/29/18 18:24; Admin Dose 2,800 UNIT; Start 05/16/18 at 16:30 Epoetin Zen-epbx (RETACRIT(esrd)) 20,000 unit Tu@1700 SC Last administered on 06/09/18 17:11; Admin Dose 20,000 UNIT; Start 05/19/18 at 17:00 Spironolactone (Aldactone) 50 mg DAILY GTB Last administered on 06/11/18 09:14; Admin Dose 50 MG; Start 05/21/18 at 09:00 Famotidine (Pepcid) 20 mg DAILY PEG Last administered on 06/11/18 09:14; Admin Dose 20 MG; Start 05/23/18 at 09:00 Morphine Sulfate (morphine) 6 mg Q4H PRN PEG SEVERE PAIN LEVEL 7-10 Last administered on 06/11/18 11:39; Admin Dose 6 MG; Start 05/22/18 at 17:00 Albumin Human 100 ml @ 100 mls/hr DURING DIALYSIS PRN IV hypotension on hd Last administered on 05/29/18 14:49; Admin Dose 100 MLS/HR; Start 05/27/18 at 07:30 Cholestyramine Resin (Questran Light) 4 gm 0600,1200,1800,2300 PO Last administered on 06/11/18 17:26; Admin Dose 4 GM; Start 05/27/18 at 18:00 Lorazepam (Ativan) 0.5 mg Q4H PRN IV ANXIETY; Start 05/30/18 at 12:00 Acetaminophen (Tylenol Tab) 650 mg Q4H PRN PO MILD PAIN(1-3)OR ELEVATED TEMP Last administered on 06/10/18 21:44; Admin Dose 650 MG; Start 05/31/18 at 13:00 Metoclopramide HCl (Reglan) 5 mg Q6 IV Last administered on 06/11/18 17:26; Admin Dose 5 MG; Start 05/31/18 at 13:00 Collagenase (Santyl) 1 applic DAILY TOP Last administered on 06/11/18 09:14; Admin Dose 1 APPLIC; Start 06/01/18 at 09:00 Clonidine (Catapres) 0.1 mg Q6H PRN PO ELEVATED BLOOD PRESSURE Last administered on 06/11/18 06:24; Admin Dose 0.1 MG; Start 06/03/18 at 03:30 Citric Acid/ Sodium Citrate (Bicitra) 30 ml TID PO Last administered on 06/11/18 12:18; Admin Dose 30 ML; Start 06/06/18 at 13:00 Vancomycin HCl (Vancomycin Oral Syringe) 250 mg Q8 PO Last administered on 06/11/18 13:28; Admin Dose 250 MG; Start 06/06/18 at 22:00 Amiodarone HCl (Cordarone) 200 mg Q8 PO Last administered on 06/11/18 13:27; Admin Dose 200 MG; Start 06/08/18 at 14:00 Metoprolol Tartrate (Lopressor) 75 mg Q8 GTB Last administered on 06/11/18 13:28; Admin Dose 75 MG; Start 06/08/18 at 14:00 Bumetanide (Bumex) 1 mg BID DIURETICS GTB Last administered on 06/11/18 17:26; Admin Dose 1 MG; Start 06/11/18 at 18:00 CODY SO MD Jun 11, 2018 17:44
[2018-06-12] VITALS (20 sets, daily range): BP systolic 101–147; BP diastolic 55–90; PULSE 72–119; RESP 18–28
[2018-06-12] MEDS: IPRATROPIUM (HFA) 12.9 GM INHALER INH SCH ×4 (01:18→20:43)
[2018-06-12] MEDS: ALBUTEROL HFA 8 GM INHALER INH SCH ×4 (01:18→20:43)
[2018-06-12] MEDS: METOCLOPRAMIDE 10 MG INJ IV SCH ×4 (05:25→23:08)
[2018-06-12] MEDS: VANCOMYCIN HCL 250 MG/5ML POSYG PO SCH ×3 (05:25→21:11)
[2018-06-12] MEDS: METOPROLOL 25 MG TAB GTB SCH ×3 (05:28→21:12)
[2018-06-12] MEDS: AMIODARONE 200 MG TAB PO SCH ×2 (05:29→21:11)
[2018-06-12] MEDS: BUMETANIDE 1 MG TAB GTB SCH ×2 (05:29→18:07)
[2018-06-12] MEDS: CHOLESTYRAMINE (LIGHT) 4 GM PACKET PO SCH ×4 (05:32→23:08)
--- NOTE | 2018-06-12 07:44 | CONS ---
Assessment/Plan Assessment/Plan Assessment/Plan (Daily) Assessment Septic as well as hemorrhagic shock-improving Acute respiratory failure status post intubation Acute blood loss anemia Septic shock and hemorrhagic shock History of respiratory failure status post decannulation Preserved ejection fraction echocardiogram 05/10/2018 Paroxysmal atrial fibrillation Acute kidney injury Plan: will reduce amiodarone to q 12 hours continue bp meds Consultation Date/Type/Reason Admit Date/Time May 06, 2018 at 17:38 Initial Consult Date 05/07/18 Type of Consult Cardiology Requesting Provider: ROLAND GIRON MD Date/Time of Note DATE: 06/12/18 TIME: 07:41 24 HR Interval Summary Free Text/Dictation opens eyes, no distress Detailed Summary Respiratory: no complaints Cardiovascular: no complaints Gastrointestinal: no complaints Musculoskeletal: restricted range of motion Skin: no complaints Neurologic: no complaints Exam/Review of Systems Vital Signs Vitals Vital Signs Date Temp Pulse Resp B/P (MAP) Pulse Ox O2 O2 Flow FiO2 Time Delivery Rate 06/12/18 110 23 100 30 05:30 06/12/18 98.2 101/55 04:05 (70) 06/09/18 Mechanical 16:06 Ventilator Intake and Output 06/11/18 06/11/18 06/12/18 1515:00 23:00 07:00 IntakeIntake Total 620 ml 600 ml OutputOutput Total 20 ml 1050 ml 500 ml BalanceBalance -20 ml -430 ml 100 ml Exam Constitutional: frail Head: normocephalic, atraumatic Neck: jvd Respiratory: diminished breath sounds Cardiovascular: regular rate and rhythm Gastrointestinal: soft Musculoskeletal: muscle tone, muscle weakness Extremities: normal pulses Labs Result Diagram: 06/11/18 0737 06/11/18 0737 Medications Medications Current Medications IV Flush (NS 10 ml) 10 ml PRN IV ; Start 05/06/18 at 20:30 Ascorbic Acid (Vitamin C) 500 mg DAILY GTB Last administered on 06/11/18at 09:14; Admin Dose 500 MG; Start 05/07/18 at 09:00 Albuterol/ Ipratropium (Duoneb) 3 ml Q2H RESP THERAPY PRN HHN SHORTNESS OF BREATH; Start 05/06/18 at 23:30 Zinc Sulfate (Zinc Sulfate) 220 mg DAILY GTB Last administered on 06/11/18at 09:14; Admin Dose 220 MG; Start 05/07/18 at 09:00 Ondansetron HCl (Zofran Tab) 4 mg Q6H PRN GTB NAUSEA AND/OR VOMITING Last administered on 05/31/18 16:47; Admin Dose 4 MG; Start 05/07/18 at 00:15 Multivitamins (Multivitamin) 30 ml DAILY GTB Last administered on 06/11/18 09:14; Admin Dose 30 ML; Start 05/07/18 at 09:00 Miscellaneous Information (Pending Santyl Order For Wound Care) This patient goldman... PRN PRN XX WOUND CARE; Start 05/09/18 at 17:00 Albuterol (Ventolin Hfa) 4 puff Q6H RESP THERAPY INH Last administered on 06/12/18 07:30; Admin Dose 4 PUFF; Start 05/12/18 at 20:00 Ipratropium [place] (Atrovent Hfa) 4 puff Q6H RESP THERAPY INH Last administered on 06/12/18 07:30; Admin Dose 4 PUFF; Start 05/12/18 at 20:00 Heparin Sodium (Porcine) (Heparin (1000 Units/ml)) 2,800 unit AFTER DIALYSIS CATHETER Last administered on 05/29/18 18:24; Admin Dose 2,800 UNIT; Start 05/16/18 at 16:30 Epoetin Zen-epbx (RETACRIT(esrd)) 20,000 unit Tu@1700 SC Last administered on 06/09/18 17:11; Admin Dose 20,000 UNIT; Start 05/19/18 at 17:00 Spironolactone (Aldactone) 50 mg DAILY GTB Last administered on 06/11/18 09:14; Admin Dose 50 MG; Start 05/21/18 at 09:00 Famotidine (Pepcid) 20 mg DAILY PEG Last administered on 06/11/18 09:14; Admin Dose 20 MG; Start 05/23/18 at 09:00 Morphine Sulfate (morphine) 6 mg Q4H PRN PEG SEVERE PAIN LEVEL 7-10 Last administered on 06/11/18 17:47; Admin Dose 6 MG; Start 05/22/18 at 17:00 Albumin Human 100 ml @ 100 mls/hr DURING DIALYSIS PRN IV hypotension on hd Last administered on 05/29/18 14:49; Admin Dose 100 MLS/HR; Start 05/27/18 at 07:30 Cholestyramine Resin (Questran Light) 4 gm 0600,1200,1800,2300 PO Last administered on 06/12/18 05:32; Admin Dose 4 GM; Start 05/27/18 at 18:00 Lorazepam (Ativan) 0.5 mg Q4H PRN IV ANXIETY; Start 05/30/18 at 12:00 Acetaminophen (Tylenol Tab) 650 mg Q4H PRN PO MILD PAIN(1-3)OR ELEVATED TEMP Last administered on 06/10/18 21:44; Admin Dose 650 MG; Start 05/31/18 at 13:00 Metoclopramide HCl (Reglan) 5 mg Q6 IV Last administered on 06/12/18 05:25; Admin Dose 5 MG; Start 05/31/18 at 13:00 Collagenase (Santyl) 1 applic DAILY TOP Last administered on 06/11/18 09:14; Admin Dose 1 APPLIC; Start 06/01/18 at 09:00 Clonidine (Catapres) 0.1 mg Q6H PRN PO ELEVATED BLOOD PRESSURE Last administered on 06/11/18 06:24; Admin Dose 0.1 MG; Start 06/03/18 at 03:30 Citric Acid/ Sodium Citrate (Bicitra) 30 ml TID PO Last administered on 06/11/18 21:20; Admin Dose 30 ML; Start 06/06/18 at 13:00 Vancomycin HCl (Vancomycin Oral Syringe) 250 mg Q8 PO Last administered on 06/12/18 05:25; Admin Dose 250 MG; Start 06/06/18 at 22:00 Amiodarone HCl (Cordarone) 200 mg Q8 PO Last administered on 06/12/18 05:29; Admin Dose 200 MG; Start 06/08/18 at 14:00 Metoprolol Tartrate (Lopressor) 75 mg Q8 GTB Last administered on 06/12/18 05:28; Admin Dose 75 MG; Start 06/08/18 at 14:00 Bumetanide (Bumex) 1 mg BID DIURETICS GTB Last administered on 06/12/18 05 :29; Admin Dose 1 MG; Start 06/11/18 at 18:00 NICOLAS SMYTH MD Jun 12, 2018 07:44
[2018-06-12] MEDS: COLLAGENASE 5 GM (UD JAR) TOP SCH (08:08)
[2018-06-12] MEDS: ZINC SULFATE 220 MG CAP GTB SCH (08:09)
[2018-06-12] MEDS: CITRIC ACID/NA CITRATE 30 ML CUP PO SCH ×3 (08:09→21:11)
[2018-06-12] MEDS: morphine LIQ (10 MG/5 ML) CUP PEG PRN ×2 (08:09→21:18)
[2018-06-12] MEDS: MULTIVITAMINS 30 ML CUP GTB SCH (08:09)
[2018-06-12] MEDS: BALSAM PERU/CASTOR OIL 60 GM TUBE TOP SCH ×2 (08:09→21:14)
[2018-06-12] MEDS: ASCORBIC ACID 500 MG TAB GTB SCH (08:09)
[2018-06-12] MEDS: SPIRONOLACTONE 25 MG TAB GTB SCH (08:10)
[2018-06-12] MEDS: FAMOTIDINE 20 MG TAB PEG SCH (08:10)
[2018-06-12] MEDS ORDERED: METOLAZONE 5 MG TAB PO ONE (08:30)
--- NOTE | 2018-06-12 09:29 | PN ---
DATE: 06/12/2018 SUBJECTIVE: The patient is stable. No events overnight. OBJECTIVE: VITAL SIGNS: Blood pressure is 160/85, pulse 110, respirations 26, temperature 98.2. HEENT: Head is normocephalic. NECK: Supple. HEART: Regular rate. LUNGS: Show diminished breath sounds at the base. ABDOMEN: Soft, nontender to palpation. No rebound or guarding. EXTREMITIES: Negative for clubbing, cyanosis. Positive edema. DERMATOLOGIC: No rashes. MUSCULOSKELETAL: No joint effusions. NEUROLOGIC: No change in exam. MEDICATIONS: Reviewed. LABORATORY DATA: From 06/11/2018 was reviewed. Laboratory data from 06/12/2018 is pending. ASSESSMENT AND PLAN: 1. Nonoliguric acute kidney injury on top of chronic kidney disease stage IIIB/IV with previous base line creatinine around 2.0 mg/dL. Etiology of acute kidney injury is secondary to acute tubular necr osis. The patient is status post hemodialysis. Renal function stabilized. Continue current treatme nt plan, supportive care, renally dose all meds. 2. Volume overload. Continue current diuretic therapy. Will add metolazone to augment diuresis. 3. Hypernatremia. Continue free water flushes. We will increase to 300 mL q.4 hours if sodium leve ls have not improved pending renal panel. 4. Hypokalemia. Continue to monitor and replete. 5. Metabolic acidosis, improved. Continue Bicitra. 6. Anemia. Monitor hemoglobin and hematocrit levels. Continue Epogen as needed. 7. Mineral bone disorder. Monitor calcium and phosphorus levels. 8. Ventilatory-dependent respiratory failure. Vent settings and ABG was reviewed. Continue to [facility]. 9. Sepsis, status post shock. The patient is completing antibiotic course. 10. Dysphagia. Continue tube feeding. 11. Acute encephalopathy. Etiology is toxic metabolic. 12. Lower extremity wounds. Continue wound care. Dictated By: JEANA BANSAL DO NR/NTS Conf#: [id number] DID#: [id number] CC: ROLAND GIRON MD;*EndCC*
--- NOTE | 2018-06-12 11:02 | CONS ---
Assessment/Plan Assessment/Plan Assessment/Plan (Daily) Ventilator settings; assist control of 20, tidal volume 500, PEEP of 5, 30% FiO2. Assessment recommendations; 1. Patient with history of prior respiratory failure admitted with severe bilateral pneumonia requiring redo tracheostomy. 2. Chronic renal failure, on hemodialysis. 3. COPD. 4. Chronic anemia. 5. Critical illness neuropathy/myopathy. Continue current supportive care. Consider transfer to rehab center. Prognosis is very poor. Consultation Date/Type/Reason Admit Date/Time May 06, 2018 at 17:38 Initial Consult Date 05/10/18 Type of Consult Pulmonary/critical care Requesting Provider: ROLAND GIRON MD Date/Time of Note DATE: 06/12/18 TIME: 10:58 24 HR Interval Summary Free Text/Dictation Patient's condition is stable. Remains awake and fairly responsive. Has remained hemodynamically stable. General exam; elderly woman, on ventilator via tracheostomy currently in no distress Exam/Review of Systems Exam Vitals Vital Signs Date Temp Pulse Resp B/P (MAP) Pulse Ox O2 O2 Flow FiO2 Time Delivery Rate 06/12/18 77 23 100 30 09:00 06/12/18 98.2 111/79 08:16 (90) 06/09/18 Mechanical 16:06 Ventilator Intake and Output 06/11/18 06/11/18 06/12/18 1515:00 23:00 07:00 IntakeIntake Total 620 ml 600 ml OutputOutput Total 20 ml 1050 ml 500 ml BalanceBalance -20 ml -430 ml 100 ml Exam H EENT exam; supple neck, no JVD. No lymphadenopathy. Tracheostomy in place. Chest exam; diminished breath sounds bilaterally. S1-S2 audible, no murmurs. Regular rhythm. Abdomen exam; soft, G-tube in place. No organomegaly. Bowel sounds are audible. Extremity exam; no peripheral edema. [employer] exam; no focal deficit. Results Result Diagram: 06/12/18 0744 06/12/18 0744 Results 24hrs Laboratory Tests Test 06/12/18 07:44 White Blood Count 14.6 H Red Blood Count 2.46 L Hemoglobin 7.9 L Hematocrit 27.0 L Mean Corpuscular Volume 109.8 H Mean Corpuscular Hemoglobin 32.1 Mean Corpuscular Hemoglobin Concent 29.3 L Red Cell Distribution Width 23.1 H Platelet Count 269 Mean Platelet Volume 9.6 Immature Granulocytes % 0.600 H Neutrophils % 81.7 H Lymphocytes % 9.3 L Monocytes % 4.2 Eosinophils % 4.0 Basophils % 0.2 Nucleated Red Blood Cells % 0.2 H Immature Granulocytes # 0.090 H Neutrophils # 11.9 H Lymphocytes # 1.4 Monocytes # 0.6 Eosinophils # 0.6 H Basophils # 0.0 Nucleated Red Blood Cells # 0.0 Sodium Level 146 H Potassium Level 3.5 Chloride Level 114 H Carbon Dioxide Level 22 Anion Gap 10 Blood Urea Nitrogen 68 H Creatinine 1.91 H Est Glomerular Filtrat Rate mL/min Glucose Level 109 Calcium Level 9.3 Phosphorus Level 2.7 Magnesium Level 1.6 L Medications Medication Current Medications IV Flush (NS 10 ml) 10 ml PRN IV ; Start 05/06/18 at 20:30 Ascorbic Acid (Vitamin C) 500 mg DAILY GTB Last administered on 06/12/18 08:09; Admin Dose 500 MG; Start 05/07/18 at 09:00 Albuterol/ Ipratropium (Duoneb) 3 ml Q2H RESP THERAPY PRN HHN SHORTNESS OF BREATH; Start 05/06/18 at 23:30 Zinc Sulfate (Zinc Sulfate) 220 mg DAILY GTB Last administered on 06/12/18 08:09; Admin Dose 220 MG; Start 05/07/18 at 09:00 Ondansetron HCl (Zofran Tab) 4 mg Q6H PRN GTB NAUSEA AND/OR VOMITING Last administered on 05/31/18at 16:47; Admin Dose 4 MG; Start 05/07/18 at 00:15 Multivitamins (Multivitamin) 30 ml DAILY GTB Last administered on 06/12/18 08:09; Admin Dose 30 ML; Start 05/07/18 at 09:00 Miscellaneous Information (Pending Santyl Order For Wound Care) This patient goldman... PRN PRN XX WOUND CARE; Start 05/09/18 at 17:00 Albuterol (Ventolin Hfa) 4 puff Q6H RESP THERAPY INH Last administered on 06/12/18 07:30; Admin Dose 4 PUFF; Start 05/12/18 at 20:00 Ipratropium [place] (Atrovent Hfa) 4 puff Q6H RESP THERAPY INH Last administered on 06/12/18 07:30; Admin Dose 4 PUFF; Start 05/12/18 at 20:00 Heparin Sodium (Porcine) (Heparin (1000 Units/ml)) 2,800 unit AFTER DIALYSIS CATHETER Last administered on 05/29/18 18:24; Admin Dose 2,800 UNIT; Start 05/16/18 at 16:30 Epoetin Zen-epbx (RETACRIT(esrd)) 20,000 unit Tu@1700 SC Last administered on 06/09/18 17:11; Admin Dose 20,000 UNIT; Start 05/19/18 at 17:00 Spironolactone (Aldactone) 50 mg DAILY GTB Last administered on 06/12/18 08:10; Admin Dose 50 MG; Start 05/21/18 at 09:00 Famotidine (Pepcid) 20 mg DAILY PEG Last administered on 06/12/18 08:10; Admin Dose 20 MG; Start 05/23/18 at 09:00 Morphine Sulfate (morphine) 6 mg Q4H PRN PEG SEVERE PAIN LEVEL 7-10 Last administered on 06/12/18 08:09; Admin Dose 6 MG; Start 05/22/18 at 17:00 Albumin Human 100 ml @ 100 mls/hr DURING DIALYSIS PRN IV hypotension on hd Last administered on 05/29/18 14:49; Admin Dose 100 MLS/HR; Start 05/27/18 at 07:30 Cholestyramine Resin (Questran Light) 4 gm 0600,1200,1800,2300 PO Last administered on 06/12/18 05:32; Admin Dose 4 GM; Start 05/27/18 at 18:00 Lorazepam (Ativan) 0.5 mg Q4H PRN IV ANXIETY; Start 05/30/18 at 12:00 Acetaminophen (Tylenol Tab) 650 mg Q4H PRN PO MILD PAIN(1-3)OR ELEVATED TEMP Last administered on 06/10/18 21:44; Admin Dose 650 MG; Start 05/31/18 at 13:00 Metoclopramide HCl (Reglan) 5 mg Q6 IV Last administered on 06/12/18 05:25; Admin Dose 5 MG; Start 05/31/18 at 13:00 Collagenase (Santyl) 1 applic DAILY TOP Last administered on 06/12/18 08:08; Admin Dose 1 APPLIC; Start 06/01/18 at 09:00 Clonidine (Catapres) 0.1 mg Q6H PRN PO ELEVATED BLOOD PRESSURE Last administered on 06/11/18 06:24; Admin Dose 0.1 MG; Start 06/03/18 at 03:30 Citric Acid/ Sodium Citrate (Bicitra) 30 ml TID PO Last administered on 06/12/18 08:09; Admin Dose 30 ML; Start 06/06/18 at 13:00 Vancomycin HCl (Vancomycin Oral Syringe) 250 mg Q8 PO Last administered on 06/12/18 05:25; Admin Dose 250 MG; Start 06/06/18 at 22:00 Metoprolol Tartrate (Lopressor) 75 mg Q8 GTB Last administered on 06/12/18 05:28; Admin Dose 75 MG; Start 06/08/18 at 14:00 Bumetanide (Bumex) 1 mg BID DIURETICS GTB Last administered on 06/12/18 05:29; Admin Dose 1 MG; Start 06/11/18 at 18:00 Amiodarone HCl (Cordarone) 200 mg Q12 PO ; Start 06/12/18 at 21:00 ELOISA LAURA Jun 12, 2018 11:02
[2018-06-12] MEDS ORDERED: MAGNESIUM SULFATE 1 GM/D5W 100 ML IVPB ONE (12:00)
[2018-06-12] MEDS ORDERED: TRIMETHOPRIM/SULFAMETHOX (DS) TAB GTB SCH (16:00)
--- NOTE | 2018-06-12 16:21 | CONS ---
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 colonization of the airway by pseudomonas and ESBL+klebsiella - h/o possible, recurrent HCAP due to pseudomonas and ESBL+klebsiella - h/o recurrent HCAP due to MRSA and Enterobacter (culture of tracheal aspirate on 07/16/2017 that was collected at [facility]) . Pt took vancomycin and ceftazidime - h/o decannulation prior to admission - h/o tracheostomy on 06/11/2017 - h/o SIRS from UGIB in 2018 - h/o thoracentesis on 07/18/2017, transudative (protein <2, LDH 279) - h/o bleeding from the trach site in 2018 - h/o septic shock due to pneumonia, ARDS, bacteremia, fungemia in 2018 - h/o ARDS in 2018 - h/o smoking - COPD - h/o ILD per medical record - h/o PAF, improved # GI - C diff colitis, diagnosed on 05/11/2018 - h/o intermittent diarrhea, Pt had multiple negative C. diff tests at [facility] at [facility] in the past; none was positive until 05/11/2018 - dysphagia - h/o PEG placement 06/13/2018 - protein calorie malnutrition - h/o coffee ground emesis/UGIB on 12/23/2017 due to deep ulceration of distal esophagus and gastritis on EGD 12/26/2017. No e/o H. pylori - h/o possible appendicitis on CT on 11/22/2017, Pt took ertapenem (11/24/2017- 12/01/2017) - h/o extensive adhesions lower abdominal and pelvis between small bowel to each other and to colon and to abdominal wall, anterior pelvic wall chronic abscess secondary to probably an old perforated diverticulitis, torsion of small bowel around these dense adhesion causing multiple obstructive points - h/o laparoscopic exploration and extensive lysis of adhesions and drainage of anterior pelvic wall abscess 09/16/2017. Cultures were negative, no e/o malignancy. Pt took pip/tazo (09/16/2017-09/26/2017) - h/o EGD and exchange of PEG on 09/01/2017 - h/o partial obstruction mid jejunum in L anterior central pelvis with suggestion of a 3 cm soft tissue mass on CT 08/28/2017 - h/o internal stomal deep ulcer behind the internal bumper, gastritis and esophagitis, Rodriguez's cannot be ruled out, per EGD with biopsy 07/23/2017 - h/o GIB s/p flex sig showed polyp; stool OB negative on 06/29/17 - h/o stool OB positive status - h/o SBO and ileus due to pain meds - h/o mildly elevated CEA # renal/ - UTI due to pseudomonas and ESBL+klebsiella on 06/09/2018, Pt took one dose of fosfomycin on 06/10/2018 and cipro 06/12-06/15/2018 - anasarca - started on HD on 05/15/2018, via Juan in R groin - recurrent NATHAN on CKD - 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 Her strain of CRE was sensitive to colistin, Avycaz, and Vabomere but resistant to Zerbaxa (reported on 05/19/2018) - Hyponatremia - Hyperkalemia, now hypokalemia - Metabolic acidosis - adrenal insufficiency - h/o vaginal bleed in 2018 - h/o colonization of urinary tract by ESBL+klebsiella, VRE - h/o recurrent, symptomatic UTI due to carbapenem-resistant kleb (MDR strain) per urine culture 10/04/17, 10/09/17, 10/21/2017, P took colistin (10/09/2017- 10/15/2017), fosfomycin for carbapenemase-producing klebsiella and VRE on 10/25 and 10/28/2017 - h/o funguria - h/o urinary retention # fungemia, bacteremia 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; Pt declined surgery for MVR per outside medical records; TTE 07/01/17 did not ment ion any thrombus; s/p voriconazole (05/25/2017-08/01/2017) - h/o bacteremia due to MSSA and proteus s/p ceftriaxone; repeat blood cultures were negative on 06/14/2017 # musculoskeletal and dermatological - R femoral catheter site, possibly colonized by pseudomonas and CRE-klebsiella - chronic wound of LLE - h/o infection of wound of LLE - h/o debridement of wound of LLE on 08/06/2017 - h/o recurrent herpes labialis, Pt took acyclovir, valacyclovir - h/o Osler's nodes (eschar) of R toes with erythematous skin; desquamation of the skin and open lacerations on R plantar foot. improved. Probable manif estation of endocarditis. Pt declined MRI on 08/06/2017 - h/o infection of R toes due to pseudomonas. coagulase negative Staph likely a colonizer - h/o intertrigo of the groin, resolved with nystatin powder - h/o scabies, locally crusted lesion over L scapula, s/p permethrin cream and pGT ivermectin on 08/11/2017, 08/12/2017, 08/19/2017. Repeat skin scraping on 08/21/2017 was negative for scabies # psych, neuro - acute toxic metabolic encephalopathy - improving - decreased hearing b/l - h/o critical illness polyneuropathy - anxiety/depression, bipolar d/o, seen by Psychiatry in the past - chronic pain syndrome - h/o medical non-compliance: she would refuse her medications, treatment and straight catheterization in 2018 # hematological, vascular - chronic anemia requiring blood transfusion intermittently - Macrocytic anemia - 3.1 cm AAA on imaging - PVD recommendations: - for UTI, Pt took one dose of fosfomycin on 06/10/2018 and then start cipro 06/12-06/15/2018. Meropenem cannot be given because it interacts with valproic acid - continue pGT tid vancomycin (05/11/2018-) for C. diff colitis; s/p IV metronidazole (05/11/2018-05/29/2018; restart 05/30/2018-06/05/18); Pt completed meropenem for HCAP (05/13/2018-05/19/2018) - will continue slow tapering next week: 06/15/2018-06/21/2018 bid, 06/22-06/28: daily, 06/29-07/05: q48hrs Consultation Date/Type/Reason Admit Date/Time May 06, 2018 at 17:38 Initial Consult Date 05/10/18 Type of Consult ID Requesting Provider: ROLAND GIRON MD Date/Time of Note DATE: 06/12/18 TIME: 16:03 24 HR Interval Summary Subjective hx not possible: pt non-verbal Exam/Review of Systems Exam Vitals Vital Signs Date Temp Pulse Resp B/P (MAP) Pulse Ox O2 O2 Flow FiO2 Time Delivery Rate 06/12/18 89 20 99 30 15:25 06/12/18 98.1 11:20 06/12/18 111/79 08:16 (90) 06/09/18 Mechanical 16:06 Ventilator Intake and Output 06/11/18 06/11/18 06/12/18 1515:00 23:00 07:00 IntakeIntake Total 620 ml 600 ml OutputOutput Total 20 ml 1050 ml 500 ml BalanceBalance -20 ml -430 ml 100 ml Constitutional: non-verbal, frail Psych: confusion Head: normocephalic, atraumatic Eyes: nl conjunctiva, nl lids, nl sclera ENMT: nl external ears & nose, nl nasal mucosa & septum, mucosa pink and moist Neck: other (trach) Respiratory: diminished breath sounds Cardiovascular: regular rate and rhythm, nl pulses Gastrointestinal: soft, non-tender, other (GT) Genitourinary - Female: other (FC) Musculoskeletal: nl extremities to inspection; No swelling Extremities: normal pulses; No edema Neurological: lethargic Results Result Diagram: 06/12/18 0744 06/12/18 0744 Results 24hrs Laboratory Tests Test 06/12/18 07:44 White Blood Count 14.6 H Red Blood Count 2.46 L Hemoglobin 7.9 L Hematocrit 27.0 L Mean Corpuscular Volume 109.8 H Mean Corpuscular Hemoglobin 32.1 Mean Corpuscular Hemoglobin Concent 29.3 L Red Cell Distribution Width 23.1 H Platelet Count 269 Mean Platelet Volume 9.6 Immature Granulocytes % 0.600 H Neutrophils % 81.7 H Lymphocytes % 9.3 L Monocytes % 4.2 Eosinophils % 4.0 Basophils % 0.2 Nucleated Red Blood Cells % 0.2 H Immature Granulocytes # 0.090 H Neutrophils # 11.9 H Lymphocytes # 1.4 Monocytes # 0.6 Eosinophils # 0.6 H Basophils # 0.0 Nucleated Red Blood Cells # 0.0 Sodium Level 146 H Potassium Level 3.5 Chloride Level 114 H Carbon Dioxide Level 22 Anion Gap 10 Blood Urea Nitrogen 68 H Creatinine 1.91 H Est Glomerular Filtrat Rate mL/min Glucose Level 109 Calcium Level 9.3 Phosphorus Level 2.7 Magnesium Level 1.6 L Medications Medication Current Medications IV Flush (NS 10 ml) 10 ml PRN IV ; Start 05/06/18 at 20:30 Ascorbic Acid (Vitamin C) 500 mg DAILY GTB Last administered on 06/12/18 08:09; Admin Dose 500 MG; Start 05/07/18 at 09:00 Albuterol/ Ipratropium (Duoneb) 3 ml Q2H RESP THERAPY PRN HHN SHORTNESS OF BREATH; Start 05/06/18 at 23:30 Zinc Sulfate (Zinc Sulfate) 220 mg DAILY GTB Last administered on 06/12/18 08:09; Admin Dose 220 MG; Start 05/07/18 at 09:00 Ondansetron HCl (Zofran Tab) 4 mg Q6H PRN GTB NAUSEA AND/OR VOMITING Last administered on 05/31/18at 16:47; Admin Dose 4 MG; Start 05/07/18 at 00:15 Multivitamins (Multivitamin) 30 ml DAILY GTB Last administered on 06/12/18 08:09; Admin Dose 30 ML; Start 05/07/18 at 09:00 Miscellaneous Information (Pending Santyl Order For Wound Care) This patient goldman... PRN PRN XX WOUND CARE; Start 05/09/18 at 17:00 Albuterol (Ventolin Hfa) 4 puff Q6H RESP THERAPY INH Last administered on 06/12/18 13:52; Admin Dose 4 PUFF; Start 05/12/18 at 20:00 Ipratropium [place] (Atrovent Hfa) 4 puff Q6H RESP THERAPY INH Last administered on 06/12/18 13:51; Admin Dose 4 PUFF; Start 05/12/18 at 20:00 Heparin Sodium (Porcine) (Heparin (1000 Units/ml)) 2,800 unit AFTER DIALYSIS CATHETER Last administered on 05/29/18 18:24; Admin Dose 2,800 UNIT; Start 05/16/18 at 16:30 Epoetin Zen-epbx (RETACRIT(esrd)) 20,000 unit Tu@1700 SC Last administered on 06/09/18 17:11; Admin Dose 20,000 UNIT; Start 05/19/18 at 17:00 Spironolactone (Aldactone) 50 mg DAILY GTB Last administered on 06/12/18 08:10; Admin Dose 50 MG; Start 05/21/18 at 09:00 Famotidine (Pepcid) 20 mg DAILY PEG Last administered on 06/12/18 08:10; Admin Dose 20 MG; Start 05/23/18 at 09:00 Morphine Sulfate (morphine) 6 mg Q4H PRN PEG SEVERE PAIN LEVEL 7-10 Last administered on 06/12/18 08:09; Admin Dose 6 MG; Start 05/22/18 at 17:00 Albumin Human 100 ml @ 100 mls/hr DURING DIALYSIS PRN IV hypotension on hd Last administered on 05/29/18 14:49; Admin Dose 100 MLS/HR; Start 05/27/18 at 07:30 Cholestyramine Resin (Questran Light) 4 gm 0600,1200,1800,2300 PO Last administered on 06/12/18 11:01; Admin Dose 4 GM; Start 05/27/18 at 18:00 Lorazepam (Ativan) 0.5 mg Q4H PRN IV ANXIETY; Start 05/30/18 at 12:00 Acetaminophen (Tylenol Tab) 650 mg Q4H PRN PO MILD PAIN(1-3)OR ELEVATED TEMP [place] administered on 06/10/18 21:44; Admin Dose 650 MG; Start 05/31/18 at 13:00 Metoclopramide HCl (Reglan) 5 mg Q6 IV Last administered on 06/12/18 11:01; Admin Dose 5 MG; Start 05/31/18 at 13:00 Collagenase (Santyl) 1 applic DAILY TOP Last administered on 06/12/18 08:08; Admin Dose 1 APPLIC; Start 06/01/18 at 09:00 Clonidine (Catapres) 0.1 mg Q6H PRN PO ELEVATED BLOOD PRESSURE Last administe red on 06/11/18at 06:24; Admin Dose 0.1 MG; Start 06/03/18 at 03:30 Citric Acid/ Sodium Citrate (Bicitra) 30 ml TID PO Last administered on 06/12/18at 12:29; Admin Dose 30 ML; Start 06/06/18 at 13:00 Vancomycin HCl (Vancomycin Oral Syringe) 250 mg Q8 PO Last administered on 06/12/18 13:08; Admin Dose 250 MG; Start 06/06/18 at 22:00 Metoprolol Tartrate (Lopressor) 75 mg Q8 GTB Last administered on 06/12/18at 13:09; Admin Dose 75 MG; Start 06/08/18 at 14:00 Bumetanide (Bumex) 1 mg BID DIURETICS GTB Last administered on 06/12/18at 05:29; Admin Dose 1 MG; Start 06/11/18 at 18:00 Amiodarone HCl (Cordarone) 200 mg Q12 PO ; Start 06/12/18 at 21:00 Trimethoprim/ Sulfamethoxazole (Bactrim (Ds)) 0.5 tab DAILY GTB Last administered on 06/12/18at 15:27; Admin Dose 0.5 TAB; Start 06/12/18 at 16:00; Stop 06/15/18 at 15:59 Ciprofloxacin (Cipro) 500 mg DAILY@06 NGT ; Start 06/13/18 at 06:00 CELESTINE MURPHY M.D. Jun 12, 2018 16:13
[2018-06-13] VITALS (22 sets, daily range): BP systolic 96–144; BP diastolic 44–79; PULSE 70–104; RESP 20–22
[2018-06-13] MEDS ORDERED: COLLAGENASE 5 GM (UD JAR) TOP PRN (01:00)
[2018-06-13] MEDS: ALBUTEROL HFA 8 GM INHALER INH SCH ×4 (02:07→19:42)
[2018-06-13] MEDS: IPRATROPIUM (HFA) 12.9 GM INHALER INH SCH ×4 (02:08→19:42)
[2018-06-13] MEDS: CHOLESTYRAMINE (LIGHT) 4 GM PACKET PO SCH ×4 (05:56→23:36)
[2018-06-13] MEDS: VANCOMYCIN HCL 250 MG/5ML POSYG PO SCH ×3 (05:56→22:51)
[2018-06-13] MEDS: METOCLOPRAMIDE 10 MG INJ IV SCH ×4 (05:57→23:36)
[2018-06-13] MEDS: morphine LIQ (10 MG/5 ML) CUP PEG PRN ×3 (05:57→21:42)
[2018-06-13] MEDS: BUMETANIDE 1 MG TAB GTB SCH ×2 (05:58→18:09)
[2018-06-13] MEDS: CIPROFLOXACIN 500 MG TAB NGT SCH (05:58)
[2018-06-13] MEDS: METOPROLOL 25 MG TAB GTB SCH ×3 (05:59→22:00)
[2018-06-13] MEDS ORDERED: COLLAGENASE 5 GM (UD JAR) TOP SCH (09:00)
[2018-06-13] MEDS: CITRIC ACID/NA CITRATE 30 ML CUP PO SCH ×3 (09:50→21:22)
[2018-06-13] MEDS: ZINC SULFATE 220 MG CAP GTB SCH (09:51)
[2018-06-13] MEDS: AMIODARONE 200 MG TAB PO SCH ×2 (09:51→21:23)
[2018-06-13] MEDS: ASCORBIC ACID 500 MG TAB GTB SCH (09:51)
[2018-06-13] MEDS: FAMOTIDINE 20 MG TAB PEG SCH (09:51)
[2018-06-13] MEDS: COLLAGENASE 5 GM (UD JAR) TOP SCH (09:52)
[2018-06-13] MEDS: MULTIVITAMINS 30 ML CUP GTB SCH (09:52)
[2018-06-13] MEDS: SPIRONOLACTONE 25 MG TAB GTB SCH (09:52)
[2018-06-13] MEDS: BALSAM PERU/CASTOR OIL 60 GM TUBE TOP SCH (09:52)
--- NOTE | 2018-06-13 09:57 | PN ---
DATE: 06/13/2018 SUBJECTIVE: The patient is stable. No events overnight. OBJECTIVE: VITAL SIGNS: Blood pressure is 131/72, pulse 72, respirations 20, temperature 98.0. HEENT: Head is normocephalic. NECK: Supple. HEART: Regular rate. LUNGS: Show diminished breath sounds at the base. ABDOMEN: Soft, nontender to palpation. No rebound or guarding. EXTREMITIES: Negative for clubbing, cyanosis. Trace edema. DERMATOLOGIC: No rashes. MUSCULOSKELETAL: No joint effusion. NEUROLOGIC: No change in exam. MEDICATIONS: Have been reviewed. LABORATORY DATA: Has been reviewed. IMAGING STUDIES: Have been reviewed. ASSESSMENT AND PLAN: 1. Nonoliguric acute kidney injury on top of chronic kidney disease stage IIIB/IV, [facility]/dL. Etiology of acute kidney injury is secondary to acute tubular necrosi s. The patient is status post hemodialysis. Renal function has stabilized. Continue current treatm ent plan, supportive care, and renally dose all medications. 2. Volume overload. Continue current diuretic therapy. Will give intermittent metolazone as needed . 3. Hypernatremia. Continue free water flushes. 4. Hypokalemia. Continue to monitor and replete. 5. Metabolic acidosis. Continue Bicitra. 6. Anemia. Monitor hemoglobin and hematocrit levels. Will give Epogen as needed. 7. Mineral bone disorder. Monitor calcium and phosphatase levels. 8. Ventilatory dependent respiratory failure. Ventilator settings and arterial blood gases were rev iewed. Continue to monitor. 9. Sepsis, status possible shock. The patient has completed antibiotic course. 10. Dysphagia. Continue tube feeding. 11. Acute encephalopathy. Etiology is toxic-metabolic. 12. Lower extremity wounds. Continue wound care. Dictated By: JEANA BANSAL DO NR/NTS Conf#: [id number] DID#: [id number] CC: ROLAND GIRNO MD;*EndCC*
[2018-06-13] MEDS ORDERED: POTASSIUM CHLORIDE 100 ML IVPB ONE (12:00)
--- NOTE | 2018-06-13 12:03 | PN ---
Date/Time of Note Date/Time of Note DATE: 06/13/18 TIME: 12:02 Assessment/Plan VTE Prophylaxis Risk score (from [facility] [place] [facility])>0 risk: 9 SCD applied (from [facility]): Yes SCD contraindicated: other Pharmacological prophylaxis: other Pharm contraindication: other Lines/Catheters [facility]ter Type (from [facility]): PICC Line Central line still needed: Yes Urinary Cath still in place: Yes Reason Cath still needed: urinary retention Assessment/Plan Assessment/Plan - Hypernatremia- -Atrial fibrillation was rapid ventricular response, s/p amiodarone drip. Rate is well controlled on p.o. amiodarone and metoprolol. - Dr. Scanlon is following in cardiology consultation. -Septic shock secondary to urinary tract infection, anterior neck soft tissue infection, and C. difficile colitis, resolving. - Continue antibiotics per ID. Dr. Brian Doyle is following in infection disease consultation. -Acute respiratory failure requiring intubation and ventilatory support. - Dr. Lambert is following in pulmonology consultation. -S/p tracheostomy on 05/29/18. -Acute kidney injury on chronic kidney disease. Started on HD this admission. - Dr. Mckeon is following in nephrology consultation. -Anemia of chronic inflammation, stool for OB is negative, status post blood transfusion. Continue Epogen. -Metabolic acidosis, resolved. -Acute diastolic congestive heart failure. -Paroxysmal atrial fibrillation -COPD -Dysphagia with PEG. -G-tube mild malfunction, changed by GI Dr. Carolina is following in gastroenterology consultation. -Obesity Patient is seen in collaboration with Dr Eisenberg. dw staff Result Diagram: 06/13/18 0654 06/13/18 0654 Results 24hrs Laboratory Tests Test 06/13/18 06:54 White Blood Count 14.1 H Red Blood Count 2.27 L Hemoglobin 7.5 L Hematocrit 25.3 L Mean Corpuscular Volume 111.5 H Mean Corpuscular Hemoglobin 33.0 Mean Corpuscular Hemoglobin Concent 29.6 L Red Cell Distribution Width 23.5 H Platelet Count 277 Mean Platelet Volume 10.1 Immature Granulocytes % 0.900 H Neutrophils % 82.1 H Lymphocytes % 9.3 L Monocytes % 4.5 Eosinophils % 3.0 Basophils % 0.2 Nucleated Red Blood Cells % 0.1 H Immature Granulocytes # 0.120 H Neutrophils # 11.6 H Lymphocytes # 1.3 Monocytes # 0.6 Eosinophils # 0.4 Basophils # 0.0 Nucleated Red Blood Cells # 0.0 Sodium Level 144 Potassium Level 3.4 L Chloride Level 110 Carbon Dioxide Level 23 Anion Gap 11 Blood Urea Nitrogen 68 H Creatinine 1.86 H Est Glomerular Filtrat Rate mL/min Glucose Level 90 Calcium Level 9.3 Phosphorus Level 2.5 Magnesium Level 1.8 Subjective 24 Hr Interval Summary Free Text/Dictation Late Entry- 06/12/2018 nad Hypernatremia- - resolved Leukocytosis; afebrile CR 1.91 TODAY refuses ADLs at times no new events reported last night dw staff Subjective hx not possible: pt non-verbal Constitutional: requiring O2 Exam/Review of Systems Exam Vitals Vital Signs Date Temp Pulse Resp B/P (MAP) Pulse Ox O2 O2 Flow FiO2 Time Delivery Rate 06/13/18 98.9 79 22 138/75 100 Mechanical 11:32 (96) Ventilator 06/13/18 30 09:10 Intake and Output 06/12/18 06/12/18 06/13/18 1515:00 23:00 07:00 IntakeIntake Total 100 ml 640 ml 650 ml OutputOutput Total 150 ml 900 ml 1900 ml BalanceBalance -50 ml -260 ml -1250 ml Constitutional: alert, non-verbal, frail Psych: nl mood/affect Eyes: nl lids, nl sclera ENMT: nl external ears & nose Respiratory: clear to auscultation, other (trach intact) Cardiovascular: nl pulses, other (s1s2) Gastrointestinal: soft Musculoskeletal: muscle weakness, range of motion Extremities: normal pulses Skin: other Lymph: nontender Results Results 24hrs Laboratory Tests Test 06/13/18 06:54 White Blood Count 14.1 H Red Blood Count 2.27 L Hemoglobin 7.5 L Hematocrit 25.3 L Mean Corpuscular Volume 111.5 H Mean Corpuscular Hemoglobin 33.0 Mean Corpuscular Hemoglobin Concent 29.6 L Red Cell Distribution Width 23.5 H Platelet Count 277 Mean Platelet Volume 10.1 Immature Granulocytes % 0.900 H Neutrophils % 82.1 H Lymphocytes % 9.3 L Monocytes % 4.5 Eosinophils % 3.0 Basophils % 0.2 Nucleated Red Blood Cells % 0.1 H Immature Granulocytes # 0.120 H Neutrophils # 11.6 H Lymphocytes # 1.3 Monocytes # 0.6 Eosinophils # 0.4 Basophils # 0.0 Nucleated Red Blood Cells # 0.0 Sodium Level 144 Potassium Level 3.4 L Chloride Level 110 Carbon Dioxide Level 23 Anion Gap 11 Blood Urea Nitrogen 68 H Creatinine 1.86 H Est Glomerular Filtrat Rate mL/min Glucose Level 90 Calcium Level 9.3 Phosphorus Level 2.5 Magnesium Level 1.8 Medications Medication Current Medications IV Flush (NS 10 ml) 10 ml PRN IV ; Start 05/06/18 at 20:30 Ascorbic Acid (Vitamin C) 500 mg DAILY GTB Last administered on 06/13/18 09:51; Admin Dose 500 MG; Start 05/07/18 at 09:00 Albuterol/ Ipratropium (Duoneb) 3 ml Q2H RESP THERAPY PRN HHN SHORTNESS OF BREATH; Start 05/06/18 at 23:30 Zinc Sulfate (Zinc Sulfate) 220 mg DAILY GTB Last administered on 06/13/18 09:51; Admin Dose 220 MG; Start 05/07/18 at 09:00 Ondansetron HCl (Zofran Tab) 4 mg Q6H PRN GTB NAUSEA AND/OR VOMITING Last administered on 05/31/18 16:47; Admin Dose 4 MG; Start 05/07/18 at 00:15 Multivitamins (Multivitamin) 30 ml DAILY GTB Last administered on 06/13/18 09:52; Admin Dose 30 ML; Start 05/07/18 at 09:00 [facility] This patient goldman... PRN PRN XX WOUND CARE; Start 05/09/18 at 17:00 Albuterol (Ventolin Hfa) 4 puff Q6H RESP THERAPY INH Last administered on 06/13/18 08:15; Admin Dose 4 PUFF; Start 05/12/18 at 20:00 Ipratropium [place] (Atrovent Hfa) 4 puff Q6H RESP THERAPY INH Last administered on 06/13/18 08:15; Admin Dose 4 PUFF; Start 05/12/18 at 20:00 Heparin Sodium (Porcine) (Heparin (1000 Units/ml)) 2,800 unit AFTER DIALYSIS CATHETER Last administered on 05/29/18 18:24; Admin Dose 2,800 UNIT; Start 05/16/18 at 16:30 Epoetin Zen-epbx (RETACRIT(esrd)) 20,000 unit Tu@1700 SC Last administered on 06/09/18 17:11; Admin Dose 20,000 UNIT; Start 05/19/18 at 17:00 Spironolactone (Aldactone) 50 mg DAILY GTB Last administered on 06/13/18 09:52; Admin Dose 50 MG; Start 05/21/18 at 09:00 Famotidine (Pepcid) 20 mg DAILY PEG Last administered on 06/13/18 09:51; Admin Dose 20 MG; Start 05/23/18 at 09:00 Morphine Sulfate (morphine) 6 mg Q4H PRN PEG SEVERE PAIN LEVEL 7-10 Last administered on 06/13/18 05:57; Admin Dose 6 MG; Start 05/22/18 at 17:00 Albumin Human 100 ml @ 100 mls/hr DURING DIALYSIS PRN IV hypotension on hd Last administered on 05/29/18 14:49; Admin Dose 100 MLS/HR; Start 05/27/18 at 07:30 Cholestyramine Resin (Questran Light) 4 gm 0600,1200,1800,2300 PO Last ad ministered on 06/13/18 05:56; Admin Dose 4 GM; Start 05/27/18 at 18:00 Lorazepam (Ativan) 0.5 mg Q4H PRN IV ANXIETY; Start 05/30/18 at 12:00 Acetaminophen (Tylenol Tab) 650 mg Q4H PRN PO MILD PAIN(1-3)OR ELEVATED TEMP Last administered on 06/10/18 21:44; Admin Dose 650 MG; Start 05/31/18 at 13:00 Metoclopramide HCl (Reglan) 5 mg Q6 IV Last administered on 06/13/18 05:57; Admin Dose 5 MG; Start 05/31/18 at 13:00 Collagenase (Santyl) 1 applic DAILY TOP Last administered on 06/13/18 09:52; Admin Dose 1 APPLIC; Start 06/01/18 at 09:00 Clonidine (Catapres) 0.1 mg Q6H PRN PO ELEVATED BLOOD PRESSURE Last administered on 06/11/18 06:24; Admin Dose 0.1 MG; Start 06/03/18 at 03:30 Citric Acid/ Sodium Citrate (Bicitra) 30 ml TID PO Last administered on 06/13/18 09:50; Admin Dose 30 ML; Start 06/06/18 at 13:00 Vancomycin HCl (Vancomycin Oral Syringe) 250 mg Q8 PO Last administered on 05:56; Admin Dose 250 MG; Start 06/06/18 at 22:00 Metoprolol Tartrate (Lopressor) 75 mg Q8 GTB Last administered on 06/13/18 05:59; Admin Dose 75 MG; Start 06/08/18 at 14:00 Bumetanide (Bumex) 1 mg BID DIURETICS GTB Last administered on 06/13/18 05:58; Admin Dose 1 MG; Start 06/11/18 at 18:00 Amiodarone HCl (Cordarone) 200 mg Q12 PO Last administered on 06/13/18 09:51; Admin Dose 200 MG; Start 06/12/18 at 21:00 Ciprofloxacin (Cipro) 500 mg DAILY@06 NGT Last administered on 06/13/18 05:58; Admin Dose 500 MG; Start 06/13/18 at 06:00; Stop 06/16/18 at 05:59 Collagenase (Santyl) 1 applic PRN PRN TOP WHEN SOILED; Start 06/13/18 at 01:00 KERON MORAN Jun 13, 2018 12:03
--- NOTE | 2018-06-13 12:05 | PN ---
Date/Time of Note Date/Time of Note DATE: 06/13/18 TIME: 12:05 Assessment/Plan VTE Prophylaxis Risk score (from [facility])>0 risk: 9 SCD applied (from [facility]): Yes Pharmacological prophylaxis: other Pharm contraindication: other Lines/Catheters IV Catheter Type (from [facility]): PICC Line Central line still needed: Yes Urinary Cath still in place: Yes Reason Cath still needed: urinary retention Assessment/Plan Assessment/Plan - Hypokalemia- replace K, BMP am - Hypernatremia- - resolved -Atrial fibrillation was rapid ventricular response, s/p amiodarone drip. Rate is well controlled on p.o. amiodarone and metoprolol. - Dr. Scanlon is following in cardiology consultation. -Septic shock secondary to urinary tract infection, anterior neck soft tissue infection, and C. difficile colitis, resolving. - Continue antibiotics per ID. Dr. Brian Doyle is following in infection disease consultation. -Acute respiratory failure requiring intubation and ventilatory support. - Dr. Lambert is following in pulmonology consultation. -S/p tracheostomy on 05/29/18. -Acute kidney injury on chronic kidney disease. Started on HD this admission. - Dr. Mckeon is following in nephrology consultation. -Anemia of chronic inflammation, stool for OB is negative, status post blood transfusion. Continue Epogen. -Metabolic acidosis, resolved. -Acute diastolic congestive heart failure. -Paroxysmal atrial fibrillation -COPD -Dysphagia with PEG. -G-tube mild malfunction, changed by GI Dr. Carolina is following in gastroenterology consultation. -Obesity- weight management Patient is seen in collaboration with Dr Eisenberg. staff Result Diagram: 06/13/18 0654 06/13/18 0654 Results 24hrs Laboratory Tests Test 06/13/18 06:54 White Blood Count 14.1 H Red Blood Count 2.27 L Hemoglobin 7.5 L Hematocrit 25.3 L Mean Corpuscular Volume 111.5 H Mean Corpuscular Hemoglobin 33.0 Mean Corpuscular Hemoglobin Concent 29.6 L Red Cell Distribution Width 23.5 H Platelet Count 277 Mean Platelet Volume 10.1 Immature Granulocytes % 0.900 H Neutrophils % 82.1 H Lymphocytes % 9.3 L Monocytes % 4.5 Eosinophils % 3.0 Basophils % 0.2 Nucleated Red Blood Cells % 0.1 H Immature Granulocytes # 0.120 H Neutrophils # 11.6 H Lymphocytes # 1.3 Monocytes # 0.6 Eosinophils # 0.4 Basophils # 0.0 Nucleated Red Blood Cells # 0.0 Sodium Level 144 Potassium Level 3.4 L Chloride Level 110 Carbon Dioxide Level 23 Anion Gap 11 Blood Urea Nitrogen 68 H Creatinine 1.86 H Est Glomerular Filtrat Rate mL/min Glucose Level 90 Calcium Level 9.3 Phosphorus Level 2.5 Magnesium Level 1.8 Subjective 24 Hr Interval Summary Free Text/Dictation nad Hypokalemia- replace K, BMP am Hypernatremia- - resolved Leukocytosis; afebrile CR 1.86 TODAY refuses ADLs at times no new events reported last night dw staff Subjective hx not possible: pt non-verbal Constitutional: requiring IVF, requiring O2 Exam/Review of Systems Exam Vitals Vital Signs Date Temp Pulse Resp B/P (MAP) Pulse Ox O2 O2 Flow FiO2 Time Delivery Rate 06/13/18 98.9 79 22 138/75 100 Mechanical 11:32 (96) Ventilator 06/13/18 30 09:10 Intake and Output 06/12/18 06/12/18 06/13/18 1515:00 23:00 07:00 IntakeIntake Total 100 ml 640 ml 650 ml OutputOutput Total 150 ml 900 ml 1900 ml BalanceBalance -50 ml -260 ml -1250 ml Constitutional: alert, well developed, non-verbal, frail Psych: nl mood/affect Eyes: nl lids, nl sclera ENMT: nl external ears & nose Neck: supple, non-tender, other (trach intactc) Respiratory: diminished breath sounds Cardiovascular: nl pulses, other (s1s2) Gastrointestinal: soft, other (gt intact) Musculoskeletal: muscle weakness Neurological: confused Lymph: nontender Results Results 24hrs Laboratory Tests Test 06/13/18 06:54 White Blood Count 14.1 H Red Blood Count 2.27 L Hemoglobin 7.5 L Hematocrit 25.3 L Mean Corpuscular Volume 111.5 H Mean Corpuscular Hemoglobin 33.0 Mean Corpuscular Hemoglobin Concent 29.6 L Red Cell Distribution Width 23.5 H Platelet Count 277 Mean Platelet Volume 10.1 Immature Granulocytes % 0.900 H Neutrophils % 82.1 H Lymphocytes % 9.3 L Monocytes % 4.5 Eosinophils % 3.0 Basophils % 0.2 Nucleated Red Blood Cells % 0.1 H Immature Granulocytes # 0.120 H Neutrophils # 11.6 H Lymphocytes # 1.3 Monocytes # 0.6 Eosinophils # 0.4 Basophils # 0.0 Nucleated Red Blood Cells # 0.0 Sodium Level 144 Potassium Level 3.4 L Chloride Level 110 Carbon Dioxide Level 23 Anion Gap 11 Blood Urea Nitrogen 68 H Creatinine 1.86 H Est Glomerular Filtrat Rate mL/min Glucose Level 90 Calcium Level 9.3 Phosphorus Level 2.5 Magnesium Level 1.8 Medications Medication Current Medications IV Flush (NS 10 ml) 10 ml PRN IV ; Start 05/06/18 at 20:30 Ascorbic Acid (Vitamin C) 500 mg DAILY GTB Last administered on 06/13/18 09:51; Admin Dose 500 MG; Start 05/07/18 at 09:00 Albuterol/ Ipratropium (Duoneb) 3 ml Q2H RESP THERAPY PRN HHN SHORTNESS OF BREATH; Start 05/06/18 at 23:30 Zinc Sulfate (Zinc Sulfate) 220 mg DAILY GTB Last administered on 06/13/18 09:51; Admin Dose 220 MG; Start 05/07/18 at 09:00 Ondansetron HCl (Zofran Tab) 4 mg Q6H PRN GTB NAUSEA AND/OR VOMITING Last administered on 05/31/18 16:47; Admin Dose 4 MG; Start 05/07/18 at 00:15 Multivitamins (Multivitamin) 30 ml DAILY GTB Last administered on 06/13/18 09:52; Admin Dose 30 ML; Start 05/07/18 at 09:00 Miscellaneous Information ([facility]) This patient goldman... PRN PRN XX WOUND CARE; Start 05/09/18 at 17:00 Albuterol (Ventolin Hfa) 4 puff Q6H RESP THERAPY INH Last administered on 06/13/18 08:15; Admin Dose 4 PUFF; Start 05/12/18 at 20:00 Ipratropium [place] (Atrovent Hfa) 4 puff Q6H RESP THERAPY INH Last administered on 06/13/18 08:15; Admin Dose 4 PUFF; Start 05/12/18 at 20:00 Heparin Sodium (Porcine) (Heparin (1000 Units/ml)) 2,800 unit AFTER DIALYSIS CATHETER Last administered on 05/29/18 18:24; Admin Dose 2,800 UNIT; Start 05/16/18 at 16:30 Epoetin Zen-epbx (RETACRIT(esrd)) 20,000 unit Tu@1700 SC Last administered on 06/09/18 17:11; Admin Dose 20,000 UNIT; Start 05/19/18 at 17:00 Spironolactone (Aldactone) 50 mg DAILY GTB Last administered on 06/13/18 09:52; Admin Dose 50 MG; Start 05/21/18 at 09:00 Famotidine (Pepcid) 20 mg DAILY PEG Last administered on 06/13/18 09:51; Admin Dose 20 MG; Start 05/23/18 at 09:00 Morphine Sulfate (morphine) 6 mg Q4H PRN PEG SEVERE PAIN LEVEL 7-10 Last administered on 06/13/18 05:57; Admin Dose 6 MG; Start 05/22/18 at 17:00 Albumin Human 100 ml @ 100 mls/hr DURING DIALYSIS PRN IV hypotension on hd Last administered on 05/29/18 14:49; Admin Dose 100 MLS/HR; Start 05/27/18 at 07:30 Cholestyramine Resin (Questran Light) 4 gm 0600,1200,1800,2300 PO Last administered on 06/13/18 05:56; Admin Dose 4 GM; Start 05/27/18 at 18:00 Lorazepam (Ativan) 0.5 mg Q4H PRN IV ANXIETY; Start 05/30/18 at 12:00 Acetaminophen (Tylenol Tab) 650 mg Q4H PRN PO MILD PAIN(1-3)OR ELEVATED TEMP Last administered on 06/10/18 21:44; Admin Dose 650 MG; Start 05/31/18 at 13:00 Metoclopramide HCl (Reglan) 5 mg Q6 IV Last administered on 06/13/18 05:57; Admin Dose 5 MG; Start 05/31/18 at 13:00 Collagenase (Santyl) 1 applic DAILY TOP Last administered on 06/13/18 09:52; Admin Dose 1 APPLIC; Start 06/01/18 at 09:00 Clonidine (Catapres) 0.1 mg Q6H PRN PO ELEVATED BLOOD PRESSURE Last administered on 06/11/18 06:24; Admin Dose 0.1 MG; Start 06/03/18 at 03:30 Citric Acid/ Sodium Citrate (Bicitra) 30 ml TID PO Last administered on 06/13/18at 09:50; Admin Dose 30 ML; Start 06/06/18 at 13:00 Vancomycin HCl (Vancomycin Oral Syringe) 250 mg Q8 PO Last administered on 06/13/18at 05:56; Admin Dose 250 MG; Start 06/06/18 at 22:00 Metoprolol Tartrate (Lopressor) 75 mg Q8 GTB Last administered on 06/13/18at 05:59; Admin Dose 75 MG; Start 06/08/18 at 14:00 Bumetanide (Bumex) 1 mg BID DIURETICS GTB Last administered on 06/13/18at 05:58; Admin Dose 1 MG; Start 06/11/18 at 18:00 Amiodarone HCl (Cordarone) 200 mg Q12 PO Last administered on 06/13/18at 09:51; Admin Dose 200 MG; Start 06/12/18 at 21:00 Ciprofloxacin (Cipro) 500 mg DAILY@06 NGT Last administered on 06/13/18at 05:58; Admin Dose 500 MG; Start 06/13/18 at 06:00; Stop 06/16/18 at 05:59 Collagenase (Santyl) 1 applic PRN PRN TOP WHEN SOILED; Start 06/13/18 at 01:00 Potassium Chloride 100 ml @ 50 mls/hr ONCE ONCE IVPB ; Start 06/13/18 at 12:00; Stop 06/13/18 at 13:59; Status KERON SIMS Jun 13, 2018 12:05
--- NOTE | 2018-06-13 12:46 | CONS ---
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 colonization of the airway by pseudomonas and ESBL+klebsiella - h/o possible, recurrent HCAP due to pseudomonas and ESBL+klebsiella - h/o recurrent HCAP due to MRSA and Enterobacter (culture of tracheal aspirate on 07/16/2017 that was collected at [facility]) . Pt took vancomycin and ceftazidime - h/o decannulation prior to admission - h/o tracheostomy on 06/11/2017 - h/o SIRS from UGIB in 2018 - h/o thoracentesis on 07/18/2017, transudative (protein <2, LDH 279) - h/o bleeding from the trach site in 2018 - h/o septic shock due to pneumonia, ARDS, bacteremia, fungemia in 2018 - h/o ARDS in 2018 - h/o smoking - COPD - h/o ILD per medical record - h/o PAF, improved # GI - C diff colitis, diagnosed on 05/11/2018 - h/o intermittent diarrhea, Pt had multiple negative C. diff tests at [facility] at [facility]SH in the past; none was positive until 05/11/2018 - dysphagia - h/o PEG placement 06/13/2018 - protein calorie malnutrition - h/o coffee ground emesis/UGIB on 12/23/2017 due to deep ulceration of distal esophagus and gastritis on EGD 12/26/2017. No e/o H. pylori - h/o possible appendicitis on CT on 11/22/2017, Pt took ertapenem (11/24/2017- 12/01/2017) - h/o extensive adhesions lower abdominal and pelvis between small bowel to each other and to colon and to abdominal wall, anterior pelvic wall chronic abscess secondary to probably an old perforated diverticulitis, torsion of small bowel around these dense adhesion causing multiple obstructive points - h/o laparoscopic exploration and extensive lysis of adhesions and drainage of anterior pelvic wall abscess 09/16/2017. Cultures were negative, no e/o malignancy. Pt took pip/tazo (09/16/2017-09/26/2017) - h/o EGD and exchange of PEG on 09/01/2017 - h/o partial obstruction mid jejunum in L anterior central pelvis with suggestion of a 3 cm soft tissue mass on CT 08/28/2017 - h/o internal stomal deep ulcer behind the internal bumper, gastritis and esophagitis, Rodriguez's cannot be ruled out, per EGD with biopsy 07/23/2017 - h/o GIB s/p flex sig showed polyp; stool OB negative on 06/29/17 - h/o stool OB positive status - h/o SBO and ileus due to pain meds - h/o mildly elevated CEA # renal/ - UTI due to pseudomonas and ESBL+klebsiella on 06/09/2018, Pt took one dose of fosfomycin on 06/10/2018 and cipro 06/12-06/15/2018 - anasarca - started on HD on 05/15/2018, via Juan in R groin - recurrent NATHAN on CKD - 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 Her strain of CRE was sensitive to colistin, Avycaz, and Vabomere but resistant to Zerbaxa (reported on 05/19/2018) - Hyponatremia - Hyperkalemia, now hypokalemia - Metabolic acidosis - adrenal insufficiency - h/o vaginal bleed in 2018 - h/o colonization of urinary tract by ESBL+klebsiella, VRE - h/o recurrent, symptomatic UTI due to carbapenem-resistant kleb (MDR strain) per urine culture 10/04/17, 10/09/17, 10/21/2017, P took colistin (10/09/2017- 10/15/2017), fosfomycin for Carbapenemase-producing klebsiella and VRE on 10/25 and 10/28/2017 - h/o funguria - h/o urinary retention # fungemia, bacteremia 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; Pt declined surgery for MVR per outside medical records; TTE 07/01/17 did not ment ion any thrombus; s/p voriconazole (05/25/2017-08/01/2017) - h/o bacteremia due to MSSA and proteus s/p ceftriaxone; repeat blood cultures were negative on 06/14/2017 # musculoskeletal and dermatological - R femoral catheter site, possibly colonized by pseudomonas and CRE-klebsiella - chronic wound of LLE - h/o infection of wound of LLE - h/o debridement of wound of LLE on 08/06/2017 - h/o recurrent herpes labialis, Pt took acyclovir, valacyclovir - h/o Osler's nodes (eschar) of R toes with erythematous skin; desquamation of the skin and open lacerations on R plantar foot. improved. Probable manif estation of endocarditis. Pt declined MRI on 08/06/2017 - h/o infection of R toes due to pseudomonas. coagulase negative Staph likely a colonizer - h/o intertrigo of the groin, resolved with nystatin powder - h/o scabies, locally crusted lesion over L scapula, s/p permethrin cream and pGT ivermectin on 08/11/2017, 08/12/2017, 08/19/2017. Repeat skin scraping on 08/21/2017 was negative for scabies # psych, neuro - acute toxic metabolic encephalopathy - improving - decreased hearing b/l - h/o critical illness polyneuropathy - anxiety/depression, bipolar d/o, seen by Psychiatry in the past - chronic pain syndrome - h/o medical non-compliance: she would refuse her medications, treatment and straight catheterization in 2018 # hematological, vascular - chronic anemia requiring blood transfusion intermittently - Macrocytic anemia - 3.1 cm AAA on imaging - PVD recommendations: - for UTI, Pt took one dose of fosfomycin on 06/10/2018 and then start cipro 06/13/2018-06/15/2018. Meropenem cannot be given because it interacts with valproic acid - continue pGT tid vancomycin (05/11/2018-) for C. diff colitis; s/p IV metronidazole (05/11/2018-05/29/2018; restart 05/30/2018-06/05/18); Pt completed meropenem for HCAP (05/13/2018-05/19/2018) - will continue slow tapering next week: 06/15/2018-06/21/2018 bid, 06/22-06/28: daily, 06/29-07/05: q48hrs Management d/w patient, RN Agustina, and with Dr. Doyle Consultation Date/Type/Reason Admit Date/Time May 06, 2018 at 17:38 Initial Consult Date 05/07/18 Type of Consult Infectious Disease Requesting Provider: ROLAND GIRON MD Date/Time of Note DATE: 06/13/18 TIME: 12:39 24 HR Interval Summary Free Text/Dictation C/o severe chronic back pain. Denies SOB. ROS limited as pt is non-verbal. Subjective hx not possible: pt non-verbal Exam/Review of Systems Exam Vitals Vital Signs Date Temp Pulse Resp B/P (MAP) Pulse Ox O2 O2 Flow FiO2 Time Delivery Rate 06/13/18 98.9 79 22 138/75 100 Mechanical 11:32 (96) Ventilator 06/13/18 30 11:20 Intake and Output 06/12/18 06/12/18 06/13/18 1515:00 23:00 07:00 IntakeIntake Total 100 ml 640 ml 650 ml OutputOutput Total 150 ml 900 ml 1900 ml BalanceBalance -50 ml -260 ml -1250 ml Exam Constitutional: alert, well developed, non-verbal, frail, obese Psych: nl mood/affect Head: normocephalic, atraumatic Eyes: nl conjunctiva, nl lids, nl sclera ENMT: nl external ears & nose, nl nasal mucosa & septum, other (MM pink and moist) Neck: other (+trach connected to ventilator support) Respiratory: diminished breath sounds, crackles/rales Cardiovascular: regular rate and rhythm, nl pulses Gastrointestinal: soft, non-tender, other (+GT; Flexiseal with liquid brown stool) Genitourinary - Female: other (+Garza) Musculoskeletal: nl extremities to inspection; No swelling Neurological: other (non-verbal; nods to simple questions) Skin: nl turgor, other (LLE dressing c/d/i) Results Result Diagram: 06/13/18 0654 06/13/18 0654 Results 24hrs Laboratory Tests Test 06/13/18 06:54 White Blood Count 14.1 H Red Blood Count 2.27 L Hemoglobin 7.5 L Hematocrit 25.3 L Mean Corpuscular Volume 111.5 H Mean Corpuscular Hemoglobin 33.0 Mean Corpuscular Hemoglobin Concent 29.6 L Red Cell Distribution Width 23.5 H Platelet Count 277 Mean Platelet Volume 10.1 Immature Granulocytes % 0.900 H Neutrophils % 82.1 H Lymphocytes % 9.3 L Monocytes % 4.5 Eosinophils % 3.0 Basophils % 0.2 Nucleated Red Blood Cells % 0.1 H Immature Granulocytes # 0.120 H Neutrophils # 11.6 H Lymphocytes # 1.3 Monocytes # 0.6 Eosinophils # 0.4 Basophils # 0.0 Nucleated Red Blood Cells # 0.0 Sodium Level 144 Potassium Level 3.4 L Chloride Level 110 Carbon Dioxide Level 23 Anion Gap 11 Blood Urea Nitrogen 68 H Creatinine 1.86 H Est Glomerular Filtrat Rate mL/min Glucose Level 90 Calcium Level 9.3 Phosphorus Level 2.5 Magnesium Level 1.8 Medications Medication Current Medications IV Flush (NS 10 ml) 10 ml PRN IV ; Start 05/06/18 at 20:30 Ascorbic Acid (Vitamin C) 500 mg DAILY GTB Last administered on 06/13/18 09:51; Admin Dose 500 MG; Start 05/07/18 at 09:00 Albuterol/ Ipratropium (Duoneb) 3 ml Q2H RESP THERAPY PRN HHN SHORTNESS OF BREATH; Start 05/06/18 at 23:30 Zinc Sulfate (Zinc Sulfate) 220 mg DAILY GTB Last administered on 06/13/18 09:51; Admin Dose 220 MG; Start 05/07/18 at 09:00 Ondansetron HCl (Zofran Tab) 4 mg Q6H PRN GTB NAUSEA AND/OR VOMITING Last administered on 05/31/18 16:47; Admin Dose 4 MG; Start 05/07/18 at 00:15 Multivitamins (Multivitamin) 30 ml DAILY GTB Last administered on 06/13/18 09:52; Admin Dose 30 ML; Start 05/07/18 at 09:00 Miscellaneous Information (Pending [facility] Order For Wound Care) This patient goldman... PRN PRN XX WOUND CARE; Start 05/09/18 at 17:00 Albuterol (Ventolin Hfa) 4 puff Q6H RESP THERAPY INH Last administered on 06/13/18 08:15; Admin Dose 4 PUFF; Start 05/12/18 at 20:00 Ipratropium [place] (Atrovent Hfa) 4 puff Q6H RESP THERAPY INH Last administered on 06/13/18 08:15; Admin Dose 4 PUFF; Start 05/12/18 at 20:00 Heparin Sodium (Porcine) (Heparin (1000 Units/ml)) 2,800 unit AFTER DIALYSIS CATHETER Last administered on 05/29/18 18:24; Admin Dose 2,800 UNIT; Start 05/16/18 at 16:30 Epoetin Zen-epbx (RETACRIT(esrd)) 20,000 unit Tu@1700 SC Last administered on 06/09/18 17:11; Admin Dose 20,000 UNIT; Start 05/19/18 at 17:00 Spironolactone (Aldactone) 50 mg DAILY GTB Last administered on 06/13/18 09:52; Admin Dose 50 MG; Start 05/21/18 at 09:00 Famotidine (Pepcid) 20 mg DAILY PEG Last administered on 06/13/18 09:51; Admin Dose 20 MG; Start 05/23/18 at 09:00 Morphine Sulfate (morphine) 6 mg Q4H PRN PEG SEVERE PAIN LEVEL 7-10 Last administered on 06/13/18 05:57; Admin Dose 6 MG; Start 05/22/18 at 17:00 Albumin Human 100 ml @ 100 mls/hr DURING DIALYSIS PRN IV hypotension on hd Last administered on 05/29/18 14:49; Admin Dose 100 MLS/HR; Start 05/27/18 at 07:30 Cholestyramine Resin (Questran Light) 4 gm 0600,1200,1800,2300 PO Last ad ministered on 06/13/18 05:56; Admin Dose 4 GM; Start 05/27/18 at 18:00 Lorazepam (Ativan) 0.5 mg Q4H PRN IV ANXIETY; Start 05/30/18 at 12:00 Acetaminophen (Tylenol Tab) 650 mg Q4H PRN PO MILD PAIN(1-3)OR ELEVATED TEMP Last administered on 06/10/18 21:44; Admin Dose 650 MG; Start 05/31/18 at 13:00 Metoclopramide HCl (Reglan) 5 mg Q6 IV Last administered on 06/13/18 05:57; Admin Dose 5 MG; Start 05/31/18 at 13:00 Collagenase (Santyl) 1 applic DAILY TOP Last administered on 06/13/18 09:52; Admin Dose 1 APPLIC; Start 06/01/18 at 09:00 Clonidine (Catapres) 0.1 mg Q6H PRN PO ELEVATED BLOOD PRESSURE Last administered on 06/11/18 06:24; Admin Dose 0.1 MG; Start 06/03/18 at 03:30 Citric Acid/ Sodium Citrate (Bicitra) 30 ml TID PO Last administered on 06/13/18 09:50; Admin Dose 30 ML; Start 06/06/18 at 13:00 Vancomycin HCl (Vancomycin Oral Syringe) 250 mg Q8 PO Last administered on 05:56; Admin Dose 250 MG; Start 06/06/18 at 22:00 Metoprolol Tartrate (Lopressor) 75 mg Q8 GTB Last administered on 06/13/18 05:59; Admin Dose 75 MG; Start 06/08/18 at 14:00 Bumetanide (Bumex) 1 mg BID DIURETICS GTB Last administered on 06/13/18 05:58; Admin Dose 1 MG; Start 06/11/18 at 18:00 Amiodarone HCl (Cordarone) 200 mg Q12 PO Last administered on 06/13/18 09:51; Admin Dose 200 MG; Start 06/12/18 at 21:00 Ciprofloxacin (Cipro) 500 mg DAILY@06 NGT Last administered on 06/13/18 05:58; Admin Dose 500 MG; Start 06/13/18 at 06:00; Stop 06/16/18 at 05:59 Collagenase (Santyl) 1 applic PRN PRN TOP WHEN SOILED; Start 06/13/18 at 01:00 Potassium Chloride 100 ml @ 50 mls/hr ONCE ONCE IVPB ; Start 06/13/18 at 12:00; Stop 06/13/18 at 13:59 LAURA JOSHI NP Jun 13, 2018 12:46
[2018-06-13] MEDS: NYSTATIN 30 GM POWDER BTL TOP SCH ×2 (14:00→21:23)
--- NOTE | 2018-06-13 22:33 | CONS ---
Consult Date/Type/Reason Admit Date/Time May 06, 2018 at 17:38 Initial Consult Date 05/10/18 Type of Consultation: Pulm/CCM Requesting Provider: ROLAND GIRON MD Date/Time of Note DATE: 06/13/18 TIME: 22:31 Subjective No events overnight. Objective Vitals Vital Signs Date Temp Pulse Resp B/P (MAP) Pulse Ox O2 O2 Flow FiO2 Time Delivery Rate 06/13/18 30 20:00 06/13/18 98.9 20 97/44 (61) 100 20:00 06/13/18 71 20:00 06/13/18 Trach 16:10 Collar Intake and Output 06/12/18 06/12/18 06/13/18 1515:00 23:00 07:00 IntakeIntake Total 100 ml 640 ml 650 ml OutputOutput Total 150 ml 900 ml 1900 ml BalanceBalance -50 ml -260 ml -1250 ml Exam HEENT: Neck supple; no JVD; no LAD: + trach CVS: Irreg, S1 and S2 CHEST: Coarse BS B/L ABD: Soft, NT, + BS EXT: No c/c; + edema Results/Medications Result Diagram: 06/13/18 0654 06/13/18 0654 Results 24 hrs Laboratory Tests Test 06/13/18 06:54 White Blood Count 14.1 H Red Blood Count 2.27 L Hemoglobin 7.5 L Hematocrit 25.3 L Mean Corpuscular Volume 111.5 H Mean Corpuscular Hemoglobin 33.0 Mean Corpuscular Hemoglobin Concent 29.6 L Red Cell Distribution Width 23.5 H Platelet Count 277 Mean Platelet Volume 10.1 Immature Granulocytes % 0.900 H Neutrophils % 82.1 H Lymphocytes % 9.3 L Monocytes % 4.5 Eosinophils % 3.0 Basophils % 0.2 Nucleated Red Blood Cells % 0.1 H Immature Granulocytes # 0.120 H Neutrophils # 11.6 H Lymphocytes # 1.3 Monocytes # 0.6 Eosinophils # 0.4 Basophils # 0.0 Nucleated Red Blood Cells # 0.0 Sodium Level 144 Potassium Level 3.4 L Chloride Level 110 Carbon Dioxide Level 23 Anion Gap 11 Blood Urea Nitrogen 68 H Creatinine 1.86 H Est Glomerular Filtrat Rate mL/min Glucose Level 90 Calcium Level 9.3 Phosphorus Level 2.5 Magnesium Level 1.8 Home Meds Reported Medications Zinc Sulfate* (Zinc Sulfate*) 220 Mg Tablet, 220 MG GTB DAILY, TAB START DATE 05/04/18, END DATE 06/03/18 05/06/18 Diclofenac Sodium* (Voltaren* Gel) 1% -100 Gm Gel, 2 GM TOP TID, #1 TUB 05/06/18 Ascorbic Acid (Vitamin C) 500 Mg Tab, 500 MG GTB DAILY, TAB 05/06/18 Quetiapine Fumarate* (Seroquel*) 100 Mg Tablet, 600 MG GTB HS, #30 TAB 05/06/18 Protein Supplement (Promod) 946 Ml Liquid, 30 ML GTB BID 05/06/18 Epoetin Zen (Procrit) 20,000 Unit/1 Ml Vial, 01940 UNIT IJ Q TUE for FOR ANEMIA OF CKD, VIAL HOLD IFHGB IS EQUAL OR GREATER THAN 11 05/06/18 Ondansetron Hcl* (Ondansetron Hcl* Liq) 4 Mg/5 Ml Solution, 4 MG GTB Q6H PRN for NAUSEA AND/OR VOMITING, ML 05/06/18 Multivitamin with Minerals (Multivitamins with Minerals) 1 Each Tablet, 1 EACH GTB QAM, TAB 05/06/18 Metoprolol Tartrate* (Lopressor*) 25 Mg Tab, 25 MG GTB BID, #60 TAB HOLD FOR SBP<110 OR HR<60 05/06/18 Lorazepam* (Ativan* Intensol) 2 Mg/Ml Soln, 0.5 MG IV* Q6H PRN for ANXIETY, #1 BOTTLE START DATE 04/02/18, END DATE 06/01/18 05/06/18 Lidocaine (Lidocaine) 1 Each Adh..patch, 1 EACH TP Q12H 5% 05/06/18 Ipratropium-Albuterol (Ipratropium-Albuterol) 0.5-3 Mg/3 Ml Ampul.neb, 3 ML INHALATION Q6 PRN for BRONCHOSPASM, #30 VIAL 05/06/18 Ipratropium-Albuterol (Ipratropium-Albuterol) 0.5-3 Mg/3 Ml Ampul.neb, 3 ML INHALATION Q2H PRN for BRONCHOSPASM, #30 VIAL 05/06/18 Famotidine* (Famotidine*) 20 Mg Tablet, 20 MG GTB BID, #60 TAB 05/06/18 Valproic Acid* (Depakene*) 250 Mg/5 Ml Udc Syrup, 100 MG GTB QHS, ML 05/06/18 Clonidine Hcl* (Clonidine Hcl*) 0.1 Mg Tab, 0.1 MG GTB Q6 PRN for NEEDED, TAB FOR SBP>160 OR DBP>90 05/06/18 Aspirin* (Aspirin* Chew) 81 Mg Tab.chew, 81 MG GTB DAILY, TAB.CHEW 05/06/18 Medications Current Medications IV Flush (NS 10 ml) 10 ml PRN IV ; Start 05/06/18 at 20:30 Ascorbic Acid (Vitamin C) 500 mg DAILY GTB Last administered on 06/13/18 09:51; Admin Dose 500 MG; Start 05/07/18 at 09:00 Albuterol/ Ipratropium (Duoneb) 3 ml Q2H RESP THERAPY PRN HHN SHORTNESS OF BREATH; Start 05/06/18 at 23:30 Zinc Sulfate (Zinc Sulfate) 220 mg DAILY GTB Last administered on 06/13/18 09:51; Admin Dose 220 MG; Start 05/07/18 at 09:00 Ondansetron HCl (Zofran Tab) 4 mg Q6H PRN GTB NAUSEA AND/OR VOMITING Last administered on 05/31/18 16:47; Admin Dose 4 MG; Start 05/07/18 at 00:15 Multivitamins (Multivitamin) 30 ml DAILY GTB Last administered on 06/13/18 09:52; Admin Dose 30 ML; Start 05/07/18 at 09:00 [facility] This patient goldman... PRN PRN XX WOUND CARE; Start 05/09/18 at 17:00 Heparin Sodium (Porcine) (Heparin (1000 Units/ml)) 2,800 unit AFTER DIALYSIS CATHETER Last administered on 05/29/18at 18:24; Admin Dose 2,800 UNIT; Start 05/16/18 at 16:30 Epoetin Zen-epbx (RETACRIT(esrd)) 20,000 unit Tu@1700 SC Last administered on 06/09/18at 17:11; Admin Dose 20,000 UNIT; Start 05/19/18 at 17:00 Spironolactone (Aldactone) 50 mg DAILY GTB Last administered on 06/13/18 09:52; Admin Dose 50 MG; Start 05/21/18 at 09:00 Famotidine (Pepcid) 20 mg DAILY PEG Last administered on 06/13/18 09:51; Admin Dose 20 MG; Start 05/23/18 at 09:00 Morphine Sulfate (morphine) 6 mg Q4H PRN PEG SEVERE PAIN LEVEL 7-10 Last administered on 06/13/18 21:42; Admin Dose 6 MG; Start 05/22/18 at 17:00 Albumin Human 100 ml @ 100 mls/hr DURING DIALYSIS PRN IV hypotension on hd Last administered on 05/29/18 14:49; Admin Dose 100 MLS/HR; Start 05/27/18 at 07:30 Cholestyramine Resin (Questran Light) 4 gm 0600,1200,1800,2300 PO Last administered on 06/13/18 18:11; Admin Dose 4 GM; Start 05/27/18 at 18:00 Lorazepam (Ativan) 0.5 mg Q4H PRN IV ANXIETY; Start 05/30/18 at 12:00 Acetaminophen (Tylenol Tab) 650 mg Q4H PRN PO MILD PAIN(1-3)OR ELEVATED TEMP Last administered on 06/10/18 21:44; Admin Dose 650 MG; Start 05/31/18 at 13:00 Metoclopramide HCl (Reglan) 5 mg Q6 IV Last administered on 06/13/18 18:09; Admin Dose 5 MG; Start 05/31/18 at 13:00 Collagenase (Santyl) 1 applic DAILY TOP Last administered on 06/13/18 09:52; Admin Dose 1 APPLIC; Start 06/01/18 at 09:00 Clonidine (Catapres) 0.1 mg Q6H PRN PO ELEVATED BLOOD PRESSURE Last ad ministered on 06/11/18 06:24; Admin Dose 0.1 MG; Start 06/03/18 at 03:30 Citric Acid/ Sodium Citrate (Bicitra) 30 ml TID PO Last administered on 06/13/18 21:22; Admin Dose 30 ML; Start 06/06/18 at 13:00 Vancomycin HCl (Vancomycin Oral Syringe) 250 mg Q8 PO Last administered on 06/13/18 13:33; Admin Dose 250 MG; Start 06/06/18 at 22:00 Metoprolol Tartrate (Lopressor) 75 mg Q8 GTB Last administered on 06/13/18at 13:18; Admin Dose 75 MG; Start 06/08/18 at 14:00 Bumetanide (Bumex) 1 mg BID DIURETICS GTB Last administered on 06/13/18at 18:09; Admin Dose 1 MG; Start 06/11/18 at 18:00 Amiodarone HCl (Cordarone) 200 mg Q12 PO Last administered on 06/13/18at 21:23; Admin Dose 200 MG; Start 06/12/18 at 21:00 Ciprofloxacin (Cipro) 500 mg DAILY@06 NGT Last administered on 06/13/18at 05:58; Admin Dose 500 MG; Start 06/13/18 at 06:00; Stop 06/16/18 at 05:59 Collagenase (Santyl) 1 applic PRN PRN TOP WHEN SOILED; Start 06/13/18 at 01:00 Nystatin (Nystatin Powder) 1 applic BID TOP Last administered on 06/13/18at 21:23; Admin Dose 1 APPLIC; Start 06/13/18 at 14:00 Assessment/Plan Assessment/Plan (Daily) IMP: 1. Septis 2. Acute Renal Failure 3. VDRF 4. Encephalopathy 5. Anemia 6. H/O abdominal abscess 7. Atrial fibrillation RECS: 1. Vent support 2. CPT/suctioning 3. TF/Free H20 SALENA IRAHETA MD Jun 13, 2018 22:33
[2018-06-14] VITALS (20 sets, daily range): BP systolic 103–164; BP diastolic 46–77; PULSE 69–85; RESP 16–29
[2018-06-14] MEDS: VANCOMYCIN HCL 250 MG/5ML POSYG PO SCH ×3 (05:48→20:53)
[2018-06-14] MEDS: BUMETANIDE 1 MG TAB GTB SCH ×2 (05:48→18:07)
[2018-06-14] MEDS: METOCLOPRAMIDE 10 MG INJ IV SCH ×4 (05:48→23:48)
[2018-06-14] MEDS: CIPROFLOXACIN 500 MG TAB NGT SCH (05:49)
[2018-06-14] MEDS: CHOLESTYRAMINE (LIGHT) 4 GM PACKET PO SCH ×4 (05:49→23:48)
[2018-06-14] MEDS: morphine LIQ (10 MG/5 ML) CUP PEG PRN ×4 (05:50→20:55)
[2018-06-14] MEDS: METOPROLOL 25 MG TAB GTB SCH ×3 (05:50→20:53)
--- NOTE | 2018-06-14 08:47 | PN ---
DATE: 06/14/2018 SUBJECTIVE: The patient is stable. No events overnight. OBJECTIVE: VITAL SIGNS: Blood pressure is 140/64, pulse 72, respirations 18, temperature 98.0. HEENT: Head is normocephalic. NECK: Supple. HEART: Regular rate. LUNGS: Show diminished breath sounds at the base. ABDOMEN: Soft, nontender to palpation without rebound or guarding. EXTREMITIES: Negative for clubbing, cyanosis. Positive edema. DERMATOLOGIC: No rashes. MUSCULOSKELETAL: No joint effusion. NEUROLOGIC: No change in exam. MEDICATIONS: Reviewed. LABORATORY DATA: Reviewed. ASSESSMENT AND PLAN: 1. Nonoliguric acute kidney injury on top of chronic kidney disease stage IIIB/IV with previous base line creatinine of around 2.0 mg/dL. Etiology of acute kidney injury is secondary to acute tubular n ecrosis. The patient is status post hemodialysis. Renal function stabilized. Continue current rosa tment plans, supportive care, renally dose all medicines. 2. Volume overload. Continue current diuretic therapy. Give intermittent metolazone as needed. 3. Hypernatremia, improved. Continue free water flushes. 4. Hypokalemia. Continue to monitor and replete. 5. Metabolic acidosis. Continue Bicitra. 6. Anemia. Monitor hemoglobin and hematocrit levels. 7. Mineral bone disorder, monitor calcium and phosphorus levels. 8. Ventilator-dependent respiratory failure. Vent settings and ABG was reviewed. Continue to monit or. 9. Sepsis, status post shock. The patient is completing antibiotic course. 10. Dysphagia. Continue tube feeding. 11. Acute encephalopathy, etiology is toxic metabolic. 12. Lower extremity wounds. Continue wound care. Dictated By: JEANA BANSAL DO NR/NTS Conf#: [id number] DID#: [id number] CC: QUINTEN UMAÑA MD; ROLAND GIRON MD;*EndCC*
[2018-06-14] MEDS: MULTIVITAMINS 30 ML CUP GTB SCH (08:53)
[2018-06-14] MEDS: SPIRONOLACTONE 25 MG TAB GTB SCH (08:53)
[2018-06-14] MEDS: CITRIC ACID/NA CITRATE 30 ML CUP PO SCH ×3 (08:53→20:28)
[2018-06-14] MEDS: ASCORBIC ACID 500 MG TAB GTB SCH (08:53)
[2018-06-14] MEDS: COLLAGENASE 5 GM (UD JAR) TOP SCH (08:53)
[2018-06-14] MEDS: ZINC SULFATE 220 MG CAP GTB SCH (08:54)
[2018-06-14] MEDS: AMIODARONE 200 MG TAB PO SCH ×2 (08:54→20:52)
[2018-06-14] MEDS: FAMOTIDINE 20 MG TAB PEG SCH (08:54)
[2018-06-14] MEDS: NYSTATIN 30 GM POWDER BTL TOP SCH ×2 (08:55→20:52)
--- NOTE | 2018-06-14 10:03 | CONS ---
[facility] HCIS Consult Follow-up Patient Name: Zuly Mcwilliams Unit Number: [id number] Date of : 1945 Patient Status: Admitted Inpatient Attending Doctor: Roland Giron MD Edit: CELESTINE SANCHEZ M.D. on 06/15/18 @ 15:25 Daniel: I discussed the management with JADE Joshi and agree with above Assessment/Plan Assessment/Plan Hospital Course (Demo Recall) # sepsis, leukocytosis, SIRS, pulmonary, cardiac - recurrent leukocytosis due to UTI - s/p septic shock due to pneumonia and C diff colitis - acute on chronic hypoxic respiratory failure, persistent - s/p reintubation 05/12/2018 - s/p re-do trach on 05/29/2018 - recurrent colonization of the anterior neck wound with ESBL+kleb, MRSA, GBS, corynebacteria on 05/06/2018 -s/p meropenem - h/o pneumonia vs. colonization of the airway by pseudomonas and ESBL+ klebsiella - h/o possible, recurrent HCAP due to pseudomonas and ESBL+klebsiella - h/o recurrent HCAP due to MRSA and Enterobacter (culture of tracheal aspirate on 07/16/2017 that was collected at [facility]) . Pt took vancomycin and ceftazidime - h/o decannulation prior to admission - h/o tracheostomy on 06/11/2017 - h/o SIRS from UGIB in 2018 - h/o thoracentesis on 07/18/2017, transudative (protein <2, LDH 279) - h/o bleeding from the trach site in 2018 - h/o septic shock due to pneumonia, ARDS, bacteremia, fungemia in 2018 - h/o ARDS in 2018 - h/o smoking - COPD - h/o ILD per medical record - h/o PAF, improved # GI - C diff colitis, diagnosed on 05/11/2018 - h/o intermittent diarrhea, Pt had multiple negative C. diff tests at [facility] at OSH in the past; none was positive until 05/11/2018 - dysphagia - h/o PEG placement 06/13/2018 - protein calorie malnutrition - h/o coffee ground emesis/UGIB on 12/23/2017 due to deep ulceration of distal esophagus and gastritis on EGD 12/26/2017. No e/o H. pylori - h/o possible appendicitis on CT on 11/22/2017, Pt took ertapenem (11/24/2017-) - h/o extensive adhesions lower abdominal and pelvis between small bowel to each other and to colon and to abdominal wall, anterior pelvic wall chronic abscess secondary to probably an old perforated diverticulitis, torsion of small bowel around these dense adhesion causing multiple obstructive points - h/o laparoscopic exploration and extensive lysis of adhesions and drainage of anterior pelvic wall abscess 09/16/2017. Cultures were negative, no e/o malignancy. Pt took pip/tazo (09/16/2017-09/26/2017) - h/o EGD and exchange of PEG on 09/01/2017 - h/o partial obstruction mid jejunum in L anterior central pelvis with suggestion of a 3 cm soft tissue mass on CT 08/28/2017 - h/o internal stomal deep ulcer behind the internal bumper, gastritis and esophagitis, Rodriguez's cannot be ruled out, per EGD with biopsy 07/23/2017 - h/o GIB s/p flex sig showed polyp; stool OB negative on 06/29/17 - h/o stool OB positive status - h/o SBO and ileus due to pain meds - h/o mildly elevated CEA # renal/ - UTI due to pseudomonas and ESBL+klebsiella on 06/09/2018, Pt took one dose of fosfomycin on 06/10/2018 and cipro 06/12-06/15/2018 - anasarca - started on HD on 05/15/2018, via Juan in R groin - recurrent NATHAN on CKD - 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 Her strain of CRE was sensitive to colistin, Avycaz, and Vabomere but resistant to Zerbaxa (reported on 05/19/2018) - s/p hyponatremia ->hypernatremia - resolved - s/p hyperkalemia, now hypokalemic intermittently - resolved - s/p metabolic acidosis - adrenal insufficiency - h/o vaginal bleed in 2018 - h/o colonization of urinary tract by ESBL+klebsiella, VRE - h/o recurrent, symptomatic UTI due to carbapenem-resistant kleb (MDR strain) per urine culture 10/04/17, 10/09/17, 10/21/2017, P took colistin (10/09/2017- 10/15/2017), fosfomycin for Carbapenemase-producing klebsiella and VRE on 10/25/2017 and 10/28/2017 - h/o funguria - h/o urinary retention # fungemia, bacteremia 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; Pt declined surgery for MVR per outside medical records; TTE 07/01/17 did not mention any thrombus; s/p voriconazole (05/25/2017-08/01/2017) - h/o bacteremia due to MSSA and proteus s/p ceftriaxone; repeat blood cultures were negative on 06/14/2017 # musculoskeletal and dermatological - R femoral catheter site, possibly colonized by pseudomonas and CRE-klebsiella - chronic wound of LLE - h/o infection of wound of LLE - h/o debridement of wound of LLE on 08/06/2017 - h/o recurrent herpes labialis, Pt took acyclovir, valacyclovir - h/o Osler's nodes (eschar) of R toes with erythematous skin; desquamation of the skin and open lacerations on R plantar foot. improved. Probable manifestation of endocarditis. Pt declined MRI on 08/06/2017 - h/o infection of R toes due to pseudomonas. coagulase negative Staph likely a colonizer - h/o intertrigo of the groin, resolved with nystatin powder - h/o scabies, locally crusted lesion over L scapula, s/p permethrin cream and pGT ivermectin on 08/11/2017, 08/12/2017, 08/19/2017. Repeat skin scraping on 08/21/2017 was negative for scabies # psych, neuro - acute toxic metabolic encephalopathy - improving - decreased hearing b/l - h/o critical illness polyneuropathy - anxiety/depression, bipolar d/o, seen by Psychiatry in the past - chronic pain syndrome - h/o medical non-compliance: she would refuse her medications, treatment and straight catheterization in 2018 # hematological, vascular - chronic anemia requiring blood transfusion intermittently - macrocytic anemia - 3.1 cm AAA on imaging - PVD recommendations: - for UTI, Pt took one dose of fosfomycin on 06/10/2018, now on cipro 06/13/2018- 06/15/2018. Meropenem cannot be given because it interacts with valproic acid - continue pGT tid vancomycin (05/11/2018-) for C. diff colitis; s/p IV metronidazole (05/11/2018-05/29/2018; restart 05/30/2018-06/05/18); Pt completed meropenem for HCAP (05/13/2018-05/19/2018) - will continue slow tapering tomorrow: 06/15/2018-06/21/2018 bid, 06/22-06/28: daily, 06/29-07/05: q48hrs (ordered) Management d/w patient, JAYANT Berrios, and with Dr. Sanchez Consultation Date/Type/Reason Admit Date/Time May 06, 2018 at 17:38 Initial Consult Date 05/07/18 Type of Consult Infectious Disease Requesting Provider: ROLAND GIRON MD Date/Time of Note DATE: 06/14/18 TIME: 10:02 24 HR Interval Summary Free Text/Dictation Pt c/o same back and abdominal pain with nausea but no vomiting and is requesting for pain medication. Nods no to SOB. Pt refusing oral care, remains afebrile, tolerating GT feeds with no residuals and still with diarrhea via Flexiseal per d/w nursing. Subjective hx not possible: pt non-verbal Exam/Review of Systems Exam Vitals Vital Signs Date Temp Pulse Resp B/P (MAP) Pulse Ox O2 O2 Flow FiO2 Time Delivery Rate 06/14/18 74 08:00 06/14/18 98.0 18 140/64 100 07:07 (89) 06/14/18 30 06:07 06/13/18 Trach 16:10 Collar Intake and Output 06/13/18 06/13/18 06/14/18 1515:00 23:00 07:00 IntakeIntake Total 640 ml OutputOutput Total 700 ml BalanceBalance -60 ml Exam Constitutional: alert, well developed, non-verbal, frail, obese Psych: nl mood/affect Head: normocephalic, atraumatic Eyes: nl conjunctiva, nl lids, nl sclera ENMT: nl external ears & nose, nl nasal mucosa & septum, other (MM pink and moist with no thrush) Neck: other (+trach connected to ventilator support) Respiratory: diminished breath sounds, crackles/rales Cardiovascular: regular rate and rhythm, nl pulses Gastrointestinal: soft, non-tender, other (+GT; Flexiseal with liquid brown stool) Genitourinary - Female: other (+Garza with clear gregor urine) Musculoskeletal: nl extremities to inspection; No swelling Neurological: other (non-verbal; nods to simple questions) Skin: nl turgor, other (intertrigo on perineal area has improved; LLE dressing c/d/i; wounds - nurses notes and photos reviewed in chart) Results Result Diagram: 06/14/18 0553 06/14/18 0553 Results 24hrs Laboratory Tests Test 06/14/18 05:53 White Blood Count 13.6 H Red Blood Count 2.35 L Hemoglobin 7.8 L Hematocrit 26.1 L Mean Corpuscular Volume 111.1 H Mean Corpuscular Hemoglobin 33.2 H Mean Corpuscular Hemoglobin Concent 29.9 L Red Cell Distribution Width 23.9 H Platelet Count 292 Mean Platelet Volume 9.8 Immature Granulocytes % 0.700 H Neutrophils % 84.1 H Lymphocytes % 7.7 L Monocytes % 4.3 Eosinophils % 3.1 Basophils % 0.1 Nucleated Red Blood Cells % 0.0 Immature Granulocytes # 0.100 H Neutrophils # 11.5 H Lymphocytes # 1.1 Monocytes # 0.6 Eosinophils # 0.4 Basophils # 0.0 Nucleated Red Blood Cells # 0.0 Sodium Level 144 Potassium Level 3.6 Chloride Level 109 Carbon Dioxide Level 25 Anion Gap 10 Blood Urea Nitrogen 68 H Creatinine 1.91 H Est Glomerular Filtrat Rate mL/min Glucose Level 120 Calcium Level 9.5 Phosphorus Level 2.7 Magnesium Level 1.7 Medications Medication Current Medications IV Flush (NS 10 ml) 10 ml PRN IV ; Start 05/06/18 at 20:30 Ascorbic Acid (Vitamin C) 500 mg DAILY GTB Last administered on 06/14/18 08:53; Admin Dose 500 MG; Start 05/07/18 at 09:00 Albuterol/ Ipratropium (Duoneb) 3 ml Q2H RESP THERAPY PRN HHN SHORTNESS OF BREATH; Start 05/06/18 at 23:30 Zinc Sulfate (Zinc Sulfate) 220 mg DAILY GTB Last administered on 06/14/18 08:54; Admin Dose 220 MG; Start 05/07/18 at 09:00 Ondansetron HCl (Zofran Tab) 4 mg Q6H PRN GTB NAUSEA AND/OR VOMITING Last administered on 05/31/18 16:47; Admin Dose 4 MG; Start 05/07/18 at 00:15 Multivitamins (Multivitamin) 30 ml DAILY GTB Last administered on 06/14/18 08:53; Admin Dose 30 ML; Start 05/07/18 at 09:00 Miscellaneous Information (Pending Santyl Order For Wound Care) This patient goldman... PRN PRN XX WOUND CARE; Start 05/09/18 at 17:00 Heparin Sodium (Porcine) (Heparin (1000 Units/ml)) 2,800 unit AFTER DIALYSIS CATHETER Last administered on 05/29/18 18:24; Admin Dose 2,800 UNIT; Start 05/16/18 at 16:30 Epoetin Zen-epbx (RETACRIT(esrd)) 20,000 unit Tu@1700 SC Last administered on 06/09/18 17:11; Admin Dose 20,000 UNIT; Start 05/19/18 at 17:00 Spironolactone (Aldactone) 50 mg DAILY GTB Last administered on 06/14/18 08:53; Admin Dose 50 MG; Start 05/21/18 at 09:00 Famotidine (Pepcid) 20 mg DAILY PEG Last administered on 06/14/18 08:54; Admin Dose 20 MG; Start 05/23/18 at 09:00 Morphine Sulfate (morphine) 6 mg Q4H PRN PEG SEVERE PAIN LEVEL 7-10 Last administered on 06/14/18 05:50; Admin Dose 6 MG; Start 05/22/18 at 17:00 Albumin Human 100 ml @ 100 mls/hr DURING DIALYSIS PRN IV hypotension on hd Last administered on 05/29/18 14:49; Admin Dose 100 MLS/HR; Start 05/27/18 at 07:30 Cholestyramine Resin (Questran Light) 4 gm 0600,1200,1800,2300 PO Last administered on 06/14/18 05:49; Admin Dose 4 GM; Start 05/27/18 at 18:00 Lorazepam (Ativan) 0.5 mg Q4H PRN IV ANXIETY; Start 05/30/18 at 12:00 Acetaminophen (Tylenol Tab) 650 mg Q4H PRN PO MILD PAIN(1-3)OR ELEVATED TEMP Last administered on 06/10/18 21:44; Admin Dose 650 MG; Start 05/31/18 at 13:00 Metoclopramide HCl (Reglan) 5 mg Q6 IV Last administered on 06/14/18 05:48; Admin Dose 5 MG; Start 05/31/18 at 13:00 Collagenase (Santyl) 1 applic DAILY TOP Last administered on 06/14/18 08:53; Admin Dose 1 APPLIC; Start 06/01/18 at 09:00 Clonidine (Catapres) 0.1 mg Q6H PRN PO ELEVATED BLOOD PRESSURE Last administered on 06/11/18 06:24; Admin Dose 0.1 MG; Start 06/03/18 at 03:30 Citric Acid/ Sodium Citrate (Bicitra) 30 ml TID PO Last administered on 06/14/18 08:53; Admin Dose 30 ML; Start 06/06/18 at 13:00 Vancomycin HCl (Vancomycin Oral Syringe) 250 mg Q8 PO Last administered on 06/14/18 05:48; Admin Dose 250 MG; Start 06/06/18 at 22:00 Metoprolol Tartrate (Lopressor) 75 mg Q8 GTB Last administered on 06/14/18 05:50; Admin Dose 75 MG; Start 06/08/18 at 14:00 Bumetanide (Bumex) 1 mg BID DIURETICS GTB Last administered on 06/14/18 05 :48; Admin Dose 1 MG; Start 06/11/18 at 18:00 Amiodarone HCl (Cordarone) 200 mg Q12 PO Last administered on 06/14/18at 08:54; Admin Dose 200 MG; Start 06/12/18 at 21:00 Ciprofloxacin (Cipro) 500 mg DAILY@06 NGT Last administered on 06/14/18at 05:49; Admin Dose 500 MG; Start 06/13/18 at 06:00; Stop 06/16/18 at 05:59 Collagenase (Santyl) 1 applic PRN PRN TOP WHEN SOILED; Start 06/13/18 at 01:00 Nystatin (Nystatin Powder) 1 applic BID TOP Last administered on 06/14/18at 08:55; Admin Dose 1 APPLIC; Start 06/13/18 at 14:00 LAURA JOSHI NP Jun 14, 2018 10:03
--- NOTE | 2018-06-14 14:58 | PN ---
Date/Time of Note Date/Time of Note DATE: 06/14/18 TIME: 14:58 Assessment/Plan VTE Prophylaxis Risk score (from [facility])>0 risk: 9 SCD applied (from [facility]): Yes SCD contraindicated: other Pharmacological prophylaxis: other Pharm contraindication: other Lines/Catheters IV Catheter Type (from [facility]): PICC Line Central line still needed: Yes Urinary Cath still in place: Yes Reason Cath still needed: urinary retention Assessment/Plan Assessment/Plan - Hypokalemia- resolved - Hypernatremia- - resolved -Atrial fibrillation was rapid ventricular response, s/p amiodarone drip. Rate is well controlled on p.o. amiodarone and metoprolol. - Dr. Scanlon is following in cardiology consultation. -Septic shock secondary to urinary tract infection, anterior neck soft tissue infection, and C. difficile colitis, resolving. - Continue antibiotics per ID. Dr. Brian Doyle is following in infection disease consultation. -Acute respiratory failure requiring intubation and ventilatory support. - Dr. Lambert is following in pulmonology consultation. -S/p tracheostomy on 05/29/18. -Acute kidney injury on chronic kidney disease. Started on HD this admission. - Dr. Mckeon is following in nephrology consultation. -Anemia of chronic inflammation, stool for OB is negative, status post blood transfusion. Continue Epogen. -Metabolic acidosis, resolved. -Acute diastolic congestive heart failure. -Paroxysmal atrial fibrillation -COPD -Dysphagia with PEG. -G-tube mild malfunction, changed by GI Dr. Carolina is following in gastroenterology consultation. -Obesity- weight management Patient is seen in collaboration with Dr Eisenberg. dw staff nad Hypokalemia- replace K, BMP am Hypernatremia- - resolved Leukocytosis; afebrile CR 1.91 today refuses ADLs at times no new events reported last night dw staff Result Diagram: 06/14/18 0553 06/14/18 0553 Results 24hrs Laboratory Tests Test 06/14/18 05:53 White Blood Count 13.6 H Red Blood Count 2.35 L Hemoglobin 7.8 L Hematocrit 26.1 L Mean Corpuscular Volume 111.1 H Mean Corpuscular Hemoglobin 33.2 H Mean Corpuscular Hemoglobin Concent 29.9 L Red Cell Distribution Width 23.9 H Platelet Count 292 Mean Platelet Volume 9.8 Immature Granulocytes % 0.700 H Neutrophils % 84.1 H Lymphocytes % 7.7 L Monocytes % 4.3 Eosinophils % 3.1 Basophils % 0.1 Nucleated Red Blood Cells % 0.0 Immature Granulocytes # 0.100 H Neutrophils # 11.5 H Lymphocytes # 1.1 Monocytes # 0.6 Eosinophils # 0.4 Basophils # 0.0 Nucleated Red Blood Cells # 0.0 Sodium Level 144 Potassium Level 3.6 Chloride Level 109 Carbon Dioxide Level 25 Anion Gap 10 Blood Urea Nitrogen 68 H Creatinine 1.91 H Est Glomerular Filtrat Rate mL/min Glucose Level 120 Calcium Level 9.5 Phosphorus Level 2.7 Magnesium Level 1.7 Subjective 24 Hr Interval Summary Free Text/Dictation nad Hypokalemia- resolved Hypernatremia- - resolved Leukocytosis; afebrile CR 1.91 today refuses ADLs at times no new events reported last night dw staff Subjective hx not possible: pt non-verbal Constitutional: requiring O2 Exam/Review of Systems Exam Vitals Vital Signs Date Temp Pulse Resp B/P (MAP) Pulse Ox O2 O2 Flow FiO2 Time Delivery Rate 06/14/18 86 20 100 30 13:35 06/14/18 98.9 113/52 11:26 (72) 06/13/18 Trach 16:10 Collar Intake and Output 06/13/18 06/13/18 06/14/18 1515:00 23:00 07:00 IntakeIntake Total 740 ml OutputOutput Total 700 ml BalanceBalance 40 ml Constitutional: alert, non-verbal, frail Psych: nl mood/affect Eyes: nl sclera ENMT: nl external ears & nose Neck: other (trach intact) Respiratory: clear to auscultation Cardiovascular: nl pulses, other (ss2) Gastrointestinal: soft, other (gt inatct) Musculoskeletal: muscle weakness Neurological: confused Lymph: nontender Results Results 24hrs Laboratory Tests Test 06/14/18 05:53 White Blood Count 13.6 H Red Blood Count 2.35 L Hemoglobin 7.8 L Hematocrit 26.1 L Mean Corpuscular Volume 111.1 H Mean Corpuscular Hemoglobin 33.2 H Mean Corpuscular Hemoglobin Concent 29.9 L Red Cell Distribution Width 23.9 H Platelet Count 292 Mean Platelet Volume 9.8 Immature Granulocytes % 0.700 H Neutrophils % 84.1 H Lymphocytes % 7.7 L Monocytes % 4.3 Eosinophils % 3.1 Basophils % 0.1 Nucleated Red Blood Cells % 0.0 Immature Granulocytes # 0.100 H Neutrophils # 11.5 H Lymphocytes # 1.1 Monocytes # 0.6 Eosinophils # 0.4 Basophils # 0.0 Nucleated Red Blood Cells # 0.0 Sodium Level 144 Potassium Level 3.6 Chloride Level 109 Carbon Dioxide Level 25 Anion Gap 10 Blood Urea Nitrogen 68 H Creatinine 1.91 H Est Glomerular Filtrat Rate mL/min Glucose Level 120 Calcium Level 9.5 Phosphorus Level 2.7 Magnesium Level 1.7 Medications Medication Current Medications IV Flush (NS 10 ml) 10 ml PRN IV ; Start 05/06/18 at 20:30 Ascorbic Acid (Vitamin C) 500 mg DAILY GTB Last administered on 06/14/18 08:53; Admin Dose 500 MG; Start 05/07/18 at 09:00 Albuterol/ Ipratropium (Duoneb) 3 ml Q2H RESP THERAPY PRN HHN SHORTNESS OF RADHA ATH; Start 05/06/18 at 23:30 Zinc Sulfate (Zinc Sulfate) 220 mg DAILY GTB Last administered on 06/14/18 08:54; Admin Dose 220 MG; Start 05/07/18 at 09:00 Ondansetron HCl (Zofran Tab) 4 mg Q6H PRN GTB NAUSEA AND/OR VOMITING Last administered on 05/31/18 16:47; Admin Dose 4 MG; Start 05/07/18 at 00:15 Multivitamins (Multivitamin) 30 ml DAILY GTB Last administered on 06/14/18 08:53; Admin Dose 30 ML; Start 05/07/18 at 09:00 Miscellaneous Information (Pending Santyl Order For Wound Care) This patient goldman... PRN PRN XX WOUND CARE; Start 05/09/18 at 17:00 Heparin Sodium (Porcine) (Heparin (1000 Units/ml)) 2,800 unit AFTER DIALYSIS CATHETER Last administered on 05/29/18 18:24; Admin Dose 2,800 UNIT; Start 05/16/18 at 16:30 Epoetin Zen-epbx (RETACRIT(esrd)) 20,000 unit Tu@1700 SC Last administered on 06/09/18 17:11; Admin Dose 20,000 UNIT; Start 05/19/18 at 17:00 Spironolactone (Aldactone) 50 mg DAILY GTB Last administered on 06/14/18 08:53; Admin Dose 50 MG; Start 05/21/18 at 09:00 Famotidine (Pepcid) 20 mg DAILY PEG Last administered on 06/14/18 08:54; Admin Dose 20 MG; Start 05/23/18 at 09:00 Morphine Sulfate (morphine) 6 mg Q4H PRN PEG SEVERE PAIN LEVEL 7-10 Last administered on 06/14/18 11:07; Admin Dose 6 MG; Start 05/22/18 at 17:00 Albumin Human 100 ml @ 100 mls/hr DURING DIALYSIS PRN IV hypotension on hd Last administered on 05/29/18 14:49; Admin Dose 100 MLS/HR; Start 05/27/18 at 07:30 Cholestyramine Resin (Questran Light) 4 gm 0600,1200,1800,2300 PO Last ad ministered on 06/14/18 11:07; Admin Dose 4 GM; Start 05/27/18 at 18:00 Lorazepam (Ativan) 0.5 mg Q4H PRN IV ANXIETY; Start 05/30/18 at 12:00 Acetaminophen (Tylenol Tab) 650 mg Q4H PRN PO MILD PAIN(1-3)OR ELEVATED TEMP Last administered on 06/10/18 21:44; Admin Dose 650 MG; Start 05/31/18 at 13:00 Metoclopramide HCl (Reglan) 5 mg Q6 IV Last administered on 06/14/18 11:54; Admin Dose 5 MG; Start 05/31/18 at 13:00 Collagenase (Santyl) 1 applic DAILY TOP Last administered on 06/14/18 08:53; Admin Dose 1 APPLIC; Start 06/01/18 at 09:00 Clonidine (Catapres) 0.1 mg Q6H PRN PO ELEVATED BLOOD PRESSURE Last administered on 06/11/18 06:24; Admin Dose 0.1 MG; Start 06/03/18 at 03:30 Citric Acid/ Sodium Citrate (Bicitra) 30 ml TID PO Last administered on 06/14/18 13:30; Admin Dose 30 ML; Start 06/06/18 at 13:00 Vancomycin HCl (Vancomycin Oral Syringe) 250 mg Q8 PO Last administered on 13:30; Admin Dose 250 MG; Start 06/06/18 at 22:00; Stop 06/14/18 at 23:59 Metoprolol Tartrate (Lopressor) 75 mg Q8 GTB Last administered on 06/14/18at 13:30; Admin Dose 75 MG; Start 06/08/18 at 14:00 Bumetanide (Bumex) 1 mg BID DIURETICS GTB Last administered on 06/14/18at 05:48; Admin Dose 1 MG; Start 06/11/18 at 18:00 Amiodarone HCl (Cordarone) 200 mg Q12 PO Last administered on 06/14/18at 08:54; Admin Dose 200 MG; Start 06/12/18 at 21:00 Ciprofloxacin (Cipro) 500 mg DAILY@06 NGT Last administered on 06/14/18at 05:49; Admin Dose 500 MG; Start 06/13/18 at 06:00; Stop 06/16/18 at 05:59 Collagenase (Santyl) 1 applic PRN PRN TOP WHEN SOILED; Start 06/13/18 at 01:00 Nystatin (Nystatin Powder) 1 applic BID TOP Last administered on 06/14/18at 08:55; Admin Dose 1 APPLIC; Start 06/13/18 at 14:00 Vancomycin HCl (Vancomycin Oral Syringe) 250 mg BID GTB ; Start 06/15/18 at 09:00; Stop 06/22/18 at 08:59 Vancomycin HCl (Vancomycin Oral Syringe) 250 mg DAILY GTB ; Start 06/22/18 at 09:00; Stop 06/29/18 at 08:59 Vancomycin HCl (Vancomycin Oral Syringe) 250 mg Q48H GTB ; Start 06/29/18 at 1 4:00; Stop 07/06/18 at 13:59 KERON MORAN Jun 14, 2018 14:58
--- NOTE | 2018-06-14 16:56 | CONS ---
Consult Date/Type/Reason Admit Date/Time May 06, 2018 at 17:38 Initial Consult Date 05/10/18 Type of Consultation: Pulm/CCM Requesting Provider: ROLAND GIRON MD Date/Time of Note DATE: 06/14/18 TIME: 16:55 Subjective No events. No c/o. Stable on MV. Objective Vitals Vital Signs Date Temp Pulse Resp B/P (MAP) Pulse Ox O2 O2 Flow FiO2 Time Delivery Rate 06/14/18 87 20 100 30 15:25 06/14/18 98.0 110/51 15:20 (70) 06/13/18 Trach 16:10 Collar Intake and Output 06/13/18 06/13/18 06/14/18 1515:00 23:00 07:00 IntakeIntake Total 740 ml OutputOutput Total 700 ml BalanceBalance 40 ml Exam HEENT: Neck supple; no JVD; no LAD: + trach CVS: Irreg, S1 and S2 CHEST: Coarse BS B/L ABD: Soft, NT, + BS EXT: No c/c; + edema Results/Medications Result Diagram: 06/14/18 0553 06/14/18 0553 Results 24 hrs Laboratory Tests Test 06/14/18 05:53 White Blood Count 13.6 H Red Blood Count 2.35 L Hemoglobin 7.8 L Hematocrit 26.1 L Mean Corpuscular Volume 111.1 H Mean Corpuscular Hemoglobin 33.2 H Mean Corpuscular Hemoglobin Concent 29.9 L Red Cell Distribution Width 23.9 H Platelet Count 292 Mean Platelet Volume 9.8 Immature Granulocytes % 0.700 H Neutrophils % 84.1 H Lymphocytes % 7.7 L Monocytes % 4.3 Eosinophils % 3.1 Basophils % 0.1 Nucleated Red Blood Cells % 0.0 Immature Granulocytes # 0.100 H Neutrophils # 11.5 H Lymphocytes # 1.1 Monocytes # 0.6 Eosinophils # 0.4 Basophils # 0.0 Nucleated Red Blood Cells # 0.0 Sodium Level 144 Potassium Level 3.6 Chloride Level 109 Carbon Dioxide Level 25 Anion Gap 10 Blood Urea Nitrogen 68 H Creatinine 1.91 H Est Glomerular Filtrat Rate mL/min Glucose Level 120 Calcium Level 9.5 Phosphorus Level 2.7 Magnesium Level 1.7 Home Meds Reported Medications Zinc Sulfate* (Zinc Sulfate*) 220 Mg Tablet, 220 MG GTB DAILY, TAB START DATE 05/04/18, END DATE 06/03/18 05/06/18 Diclofenac Sodium* (Voltaren* Gel) 1% -100 Gm Gel, 2 GM TOP TID, #1 TUB 05/06/18 Ascorbic Acid (Vitamin C) 500 Mg Tab, 500 MG GTB DAILY, TAB 05/06/18 Quetiapine Fumarate* (Seroquel*) 100 Mg Tablet, 600 MG GTB HS, #30 TAB 05/06/18 Protein Supplement (Promod) 946 Ml Liquid, 30 ML GTB BID 05/06/18 Epoetin Zen (Procrit) 20,000 Unit/1 Ml Vial, 16941 UNIT IJ Q TUE for FOR ANEMIA OF CKD, VIAL HOLD IFHGB IS EQUAL OR GREATER THAN 11 05/06/18 Ondansetron Hcl* (Ondansetron Hcl* Liq) 4 Mg/5 Ml Solution, 4 MG GTB Q6H PRN for NAUSEA AND/OR VOMITING, ML 05/06/18 Multivitamin with Minerals (Multivitamins with Minerals) 1 Each Tablet, 1 EACH GTB QAM, TAB 05/06/18 Metoprolol Tartrate* (Lopressor*) 25 Mg Tab, 25 MG GTB BID, #60 TAB HOLD FOR SBP<110 OR HR<60 05/06/18 Lorazepam* (Ativan* Intensol) 2 Mg/Ml Soln, 0.5 MG IV* Q6H PRN for ANXIETY, #1 BOTTLE START DATE 04/02/18, END DATE 06/01/18 05/06/18 Lidocaine (Lidocaine) 1 Each Adh..patch, 1 EACH TP Q12H 5% 05/06/18 Ipratropium-Albuterol (Ipratropium-Albuterol) 0.5-3 Mg/3 Ml Ampul.neb, 3 ML INHALATION Q6 PRN for BRONCHOSPASM, #30 VIAL 05/06/18 Ipratropium-Albuterol (Ipratropium-Albuterol) 0.5-3 Mg/3 Ml Ampul.neb, 3 ML INHALATION Q2H PRN for BRONCHOSPASM, #30 VIAL 05/06/18 Famotidine* (Famotidine*) 20 Mg Tablet, 20 MG GTB BID, #60 TAB 05/06/18 Valproic Acid* (Depakene*) 250 Mg/5 Ml Udc Syrup, 100 MG GTB QHS, ML 05/06/18 Clonidine Hcl* (Clonidine Hcl*) 0.1 Mg Tab, 0.1 MG GTB Q6 PRN for NEEDED, TAB FOR SBP>160 OR DBP>90 05/06/18 Aspirin* (Aspirin* Chew) 81 Mg Tab.chew, 81 MG GTB DAILY, TAB.CHEW 05/06/18 Medications Current Medications IV Flush (NS 10 ml) 10 ml PRN IV ; Start 05/06/18 at 20:30 Ascorbic Acid (Vitamin C) 500 mg DAILY GTB Last administered on 06/14/18 08:53; Admin Dose 500 MG; Start 05/07/18 at 09:00 Albuterol/ Ipratropium (Duoneb) 3 ml Q2H RESP THERAPY PRN HHN SHORTNESS OF BREATH; Start 05/06/18 at 23:30 Zinc Sulfate (Zinc Sulfate) 220 mg DAILY GTB Last administered on 06/14/18 08:54; Admin Dose 220 MG; Start 05/07/18 at 09:00 Ondansetron HCl (Zofran Tab) 4 mg Q6H PRN GTB NAUSEA AND/OR VOMITING Last administered on 05/31/18 16:47; Admin Dose 4 MG; Start 05/07/18 at 00:15 Multivitamins (Multivitamin) 30 ml DAILY GTB Last administered on 06/14/18 08:53; Admin Dose 30 ML; Start 05/07/18 at 09:00 [facility] This patient goldman... PRN PRN XX WOUND CARE; Start 05/09/18 at 17:00 Heparin Sodium (Porcine) (Heparin (1000 Units/ml)) 2,800 unit AFTER DIALYSIS CATHETER Last administered on 05/29/18 18:24; Admin Dose 2,800 UNIT; Start 05/16/18 at 16:30 Epoetin Zen-epbx (RETACRIT(esrd)) 20,000 unit Tu@1700 SC Last administered on 06/09/18 17:11; Admin Dose 20,000 UNIT; Start 05/19/18 at 17:00 Spironolactone (Aldactone) 50 mg DAILY GTB Last administered on 06/14/18 08:53; Admin Dose 50 MG; Start 05/21/18 at 09:00 Famotidine (Pepcid) 20 mg DAILY PEG Last administered on 06/14/18 08:54; Admin Dose 20 MG; Start 05/23/18 at 09:00 Morphine Sulfate (morphine) 6 mg Q4H PRN PEG SEVERE PAIN LEVEL 7-10 Last administered on 06/14/18 15:07; Admin Dose 6 MG; Start 05/22/18 at 17:00 Albumin Human 100 ml @ 100 mls/hr DURING DIALYSIS PRN IV hypotension on hd Last administered on 05/29/18 14:49; Admin Dose 100 MLS/HR; Start 05/27/18 at 07:30 Cholestyramine Resin (Questran Light) 4 gm 0600,1200,1800,2300 PO Last administered on 06/14/18 11:07; Admin Dose 4 GM; Start 05/27/18 at 18:00 Lorazepam (Ativan) 0.5 mg Q4H PRN IV ANXIETY; Start 05/30/18 at 12:00 Acetaminophen (Tylenol Tab) 650 mg Q4H PRN PO MILD PAIN(1-3)OR ELEVATED TEMP Last administered on 06/10/18 21:44; Admin Dose 650 MG; Start 05/31/18 at 13:00 Metoclopramide HCl (Reglan) 5 mg Q6 IV Last administered on 06/14/18 11:54; Admin Dose 5 MG; Start 05/31/18 at 13:00 Collagenase (Santyl) 1 applic DAILY TOP Last administered on 06/14/18 08:53; Admin Dose 1 APPLIC; Start 06/01/18 at 09:00 Clonidine (Catapres) 0.1 mg Q6H PRN PO ELEVATED BLOOD PRESSURE Last administered on 06/11/18 06:24; Admin Dose 0.1 MG; Start 06/03/18 at 03:30 Citric Acid/ Sodium Citrate (Bicitra) 30 ml TID PO Last administered on 9at 13:30; Admin Dose 30 ML; Start 06/06/18 at 13:00 Vancomycin HCl (Vancomycin Oral Syringe) 250 mg Q8 PO Last administered on 06/14/18 13:30; Admin Dose 250 MG; Start 06/06/18 at 22:00; Stop 06/14/18 at 23:59 Metoprolol Tartrate (Lopressor) 75 mg Q8 GTB Last administered on 06/14/18at 13:30; Admin Dose 75 MG; Start 06/08/18 at 14:00 Bumetanide (Bumex) 1 mg BID DIURETICS GTB Last administered on 06/14/18at 05:48; Admin Dose 1 MG; Start 06/11/18 at 18:00 Amiodarone HCl (Cordarone) 200 mg Q12 PO Last administered on 06/14/18at 08:54; Admin Dose 200 MG; Start 06/12/18 at 21:00 Ciprofloxacin (Cipro) 500 mg DAILY@06 NGT Last administered on 06/14/18at 05:49; Admin Dose 500 MG; Start 06/13/18 at 06:00; Stop 06/16/18 at 05:59 Collagenase (Santyl) 1 applic PRN PRN TOP WHEN SOILED; Start 06/13/18 at 01:00 Nystatin (Nystatin Powder) 1 applic BID TOP Last administered on 06/14/18at 08:55; Admin Dose 1 APPLIC; Start 06/13/18 at 14:00 Vancomycin HCl (Vancomycin Oral Syringe) 250 mg BID GTB ; Start 06/15/18 at 09:00; Stop 06/22/18 at 08:59 Vancomycin HCl (Vancomycin Oral Syringe) 250 mg DAILY GTB ; Start 06/22/18 at 09:00; Stop 06/29/18 at 08:59 Vancomycin HCl (Vancomycin Oral Syringe) 250 mg Q48H GTB ; Start 06/29/18 at 14:00; Stop 07/06/18 at 13:59 Assessment/Plan Assessment/Plan (Daily) IMP: 1. Septis 2. Acute Renal Failure 3. VDRF 4. Encephalopathy 5. Anemia 6. H/O abdominal abscess 7. Atrial fibrillation RECS: 1. Vent support 2. CPT/suctioning 3. TF/Free H20 4. Rate control SALENA IRAHETA MD Jun 14, 2018 16:56
[2018-06-15] VITALS (20 sets, daily range): BP systolic 133–156; BP diastolic 67–84; PULSE 68–97; RESP 14–22
[2018-06-15] MEDS: BALSAM PERU/CASTOR OIL 60 GM TUBE TOP SCH ×3 (03:46→21:00)
[2018-06-15] MEDS: morphine LIQ (10 MG/5 ML) CUP PEG PRN ×3 (05:22→15:25)
[2018-06-15] MEDS: CIPROFLOXACIN 500 MG TAB NGT SCH (05:23)
[2018-06-15] MEDS: METOPROLOL 25 MG TAB GTB SCH ×3 (05:23→23:06)
[2018-06-15] MEDS: BUMETANIDE 1 MG TAB GTB SCH ×2 (05:24→17:26)
[2018-06-15] MEDS: METOCLOPRAMIDE 10 MG INJ IV SCH ×3 (05:24→17:26)
[2018-06-15] MEDS: CHOLESTYRAMINE (LIGHT) 4 GM PACKET PO SCH ×4 (05:36→23:06)
[2018-06-15] MEDS: MULTIVITAMINS 30 ML CUP GTB SCH (09:37)
[2018-06-15] MEDS: AMIODARONE 200 MG TAB PO SCH ×2 (09:37→23:04)
[2018-06-15] MEDS: CITRIC ACID/NA CITRATE 30 ML CUP PO SCH ×3 (09:37→22:56)
[2018-06-15] MEDS: ZINC SULFATE 220 MG CAP GTB SCH (09:37)
[2018-06-15] MEDS: VANCOMYCIN HCL 250 MG/5ML POSYG GTB SCH ×2 (09:37→21:00)
[2018-06-15] MEDS: COLLAGENASE 5 GM (UD JAR) TOP SCH (09:37)
[2018-06-15] MEDS: FAMOTIDINE 20 MG TAB PEG SCH (09:38)
[2018-06-15] MEDS: SPIRONOLACTONE 25 MG TAB GTB SCH (09:38)
[2018-06-15] MEDS: ASCORBIC ACID 500 MG TAB GTB SCH (09:38)
[2018-06-15] MEDS: NYSTATIN 30 GM POWDER BTL TOP SCH ×2 (09:39→23:05)
--- NOTE | 2018-06-15 09:41 | PN ---
DATE: 06/15/2018 SUBJECTIVE: The patient is stable, no events noted. OBJECTIVE: VITAL SIGNS: Blood pressure is 140/67, pulse 71, respirations 20, temperature is 98.3. HEENT: Head is normocephalic. NECK: Supple. HEART: Regular rate. LUNGS: Show diminished breath sounds at the base. ABDOMEN: Soft, nontender to palpation. No rebound or guarding. EXTREMITIES: Negative for clubbing, cyanosis, no edema. DERMATOLOGIC: No rashes. MUSCULOSKELETAL: No joint effusion. NEUROLOGIC: No change in exam. MEDICATIONS: The patient's medications have been reviewed. LABORATORY DATA: Reviewed. ASSESSMENT AND PLAN: 1. Nonoliguric acute kidney injury on top of chronic kidney disease stage IIIB/IV with previous base line creatinine of around 2.0 mg/dL. Etiology of acute kidney injury is secondary to acute tubular n ecrosis. The patient is status post hemodialysis. Renal function is stabilized. Continue current m edical management. 2. Volume overload, improving. Continue current diuretic regimen. 3. Hypernatremia, improved. Continue free water flushes. 4. Hyperkalemia. Continue to monitor and replete as needed. 5. Metabolic acidosis, resolved. Continue Bicitra. 6. Anemia. Monitor hemoglobin and hematocrit levels. 7. Mineral bone disorder, monitor calcium and phosphorus levels. 8. Ventilatory dependent respiratory failure. Vent settings and ABG was reviewed. Continue to luis e tor. 9. Sepsis, status post shock. The patient is completing antibiotic course. 10. Dysphagia. Continue tube feeding. 11. Acute encephalopathy. Etiology is toxic metabolic. 12. Lower extremity wounds. Continue wound care. Dictated By: JEANA BANSAL DO NR/NTS Conf#: [id number] DID#: [id number] CC: QUINTEN UMAÑA MD; ROLAND GIRON MD;*EndCC*
--- NOTE | 2018-06-15 10:36 | CONS ---
Assessment/Plan Assessment/Plan Assessment/Plan (Daily) Ventilator setting; AC of 20, tidal volume 500, PEEP of 5, 30% FiO2. Assessment and recommendations; next 1. Patient with history of VDRF status post decannulation of tracheostomy about 2-1/2 months ago admitted again for severe bilateral pneumonia with failure to be weaned from ventilator requiring redo tracheostomy. 2. Chronic renal failure, on hemodialysis. 3. Anemia. 4. Atrial fibrillation. 5. Critical illness neuropathy/myopathy. Continue current supportive care. Consider discharge to long term. Consultation Date/Type/Reason Admit Date/Time May 06, 2018 at 17:38 Initial Consult Date 05/10/18 Type of Consult Pulmonary/critical care Requesting Provider: ROLAND GIRON MD Date/Time of Note DATE: 06/15/18 TIME: 10:33 24 HR Interval Summary Free Text/Dictation Patient's condition is stable. General exam; elderly woman, on ventilator via tracheostomy, awake and fairly responsive. Currently in no distress. Exam/Review of Systems Exam Vitals Vital Signs Date Temp Pulse Resp B/P (MAP) Pulse Ox O2 O2 Flow FiO2 Time Delivery Rate 06/15/18 82 20 100 30 09:15 06/15/18 98.3 140/67 07:51 (91) 06/13/18 Trach 16:10 Collar Intake and Output 06/14/18 06/14/18 06/15/18 1515:00 23:00 07:00 IntakeIntake Total 1080 ml 1080 ml 1080 ml OutputOutput Total 700 ml 1550 ml 750 ml BalanceBalance 380 ml -470 ml 330 ml Exam H ENT exam; supple neck, no JVD. No lymphadenopathy. Midline trachea. No thyromegaly. Tracheostomy in place. Chest exam; diminished but clear breath sounds. S1-S2 audible, no murmurs. Regular rhythm. Abdomen exam; soft, G-tube in place. No organomegaly. Bowel sounds audible. Nontender. Extremity exam; no peripheral edema. Patient does have patchy ecchymosis. [employer] exam; no focal deficit. Results Result Diagram: 06/15/18 0611 06/15/18 0611 Results 24hrs Laboratory Tests Test 06/15/18 06:11 White Blood Count 13.3 H Red Blood Count 2.26 L Hemoglobin 7.5 L Hematocrit 25.2 L Mean Corpuscular Volume 111.5 H Mean Corpuscular Hemoglobin 33.2 H Mean Corpuscular Hemoglobin Concent 29.8 L Red Cell Distribution Width 24.4 H Platelet Count 272 Mean Platelet Volume 10.1 Immature Granulocytes % 0.600 H Neutrophils % 82.8 H Lymphocytes % 8.5 L Monocytes % 4.1 Eosinophils % 3.8 Basophils % 0.2 Nucleated Red Blood Cells % 0.0 Immature Granulocytes # 0.080 H Neutrophils # 11.0 H Lymphocytes # 1.1 Monocytes # 0.5 Eosinophils # 0.5 Basophils # 0.0 Nucleated Red Blood Cells # 0.0 Sodium Level 141 Potassium Level 3.6 Chloride Level 106 Carbon Dioxide Level 25 Anion Gap 10 Blood Urea Nitrogen 66 H Creatinine 1.86 H Est Glomerular Filtrat Rate mL/min Glucose Level 112 Calcium Level 9.6 Total Bilirubin 0.1 L Direct Bilirubin 0.00 Indirect Bilirubin 0.1 Aspartate Amino Transf (AST/SGOT) 13 L Alanine Aminotransferase (ALT/SGPT) 12 L Alkaline Phosphatase 75 Total Protein 6.4 Albumin 2.9 L Globulin 3.50 H Albumin/Globulin Ratio 0.82 Medications Medication Current Medications IV Flush (NS 10 ml) 10 ml PRN IV ; Start 05/06/18 at 20:30 Ascorbic Acid (Vitamin C) 500 mg DAILY GTB Last administered on 06/15/18 09:38; Admin Dose 500 MG; Start 05/07/18 at 09:00 Albuterol/ Ipratropium (Duoneb) 3 ml Q2H RESP THERAPY PRN HHN SHORTNESS OF BREATH; Start 05/06/18 at 23:30 Zinc Sulfate (Zinc Sulfate) 220 mg DAILY GTB Last administered on 06/15/18 09:37; Admin Dose 220 MG; Start 05/07/18 at 09:00 Ondansetron HCl (Zofran Tab) 4 mg Q6H PRN GTB NAUSEA AND/OR VOMITING Last administered on 05/31/18 16:47; Admin Dose 4 MG; Start 05/07/18 at 00:15 Multivitamins (Multivitamin) 30 ml DAILY GTB Last administered on 06/15/18 09:37; Admin Dose 30 ML; Start 05/07/18 at 09:00 Miscellaneous Information (Pending Santyl Order For Wound Care) This patient goldman... PRN PRN XX WOUND CARE; Start 05/09/18 at 17:00 Heparin Sodium (Porcine) (Heparin (1000 Units/ml)) 2,800 unit AFTER DIALYSIS CATHETER Last administered on 05/29/18 18:24; Admin Dose 2,800 UNIT; Start 05/16/18 at 16:30 Epoetin Zen-epbx (RETACRIT(esrd)) 20,000 unit Tu@1700 SC Last administered on 06/09/18 17:11; Admin Dose 20,000 UNIT; Start 05/19/18 at 17:00 Spironolactone (Aldactone) 50 mg DAILY GTB Last administered on 06/15/18 09 :38; Admin Dose 50 MG; Start 05/21/18 at 09:00 Famotidine (Pepcid) 20 mg DAILY PEG Last administered on 06/15/18 09:38; Admin Dose 20 MG; Start 05/23/18 at 09:00 Morphine Sulfate (morphine) 6 mg Q4H PRN PEG SEVERE PAIN LEVEL 7-10 Last administered on 06/15/18 09:39; Admin Dose 6 MG; Start 05/22/18 at 17:00 Albumin Human 100 ml @ 100 mls/hr DURING DIALYSIS PRN IV hypotension on hd Last administered on 05/29/18 14:49; Admin Dose 100 MLS/HR; Start 05/27/18 at 07:30 Cholestyramine Resin (Questran Light) 4 gm 0600,1200,1800,2300 PO Last administered on 06/15/18 05:36; Admin Dose 4 GM; Start 05/27/18 at 18:00 Lorazepam (Ativan) 0.5 mg Q4H PRN IV ANXIETY; Start 05/30/18 at 12:00 Acetaminophen (Tylenol Tab) 650 mg Q4H PRN PO MILD PAIN(1-3)OR ELEVATED TEMP Last administered on 06/10/18 21:44; Admin Dose 650 MG; Start 05/31/18 at 13:00 Metoclopramide HCl (Reglan) 5 mg Q6 IV Last administered on 06/15/18 05:24; Admin Dose 5 MG; Start 05/31/18 at 13:00 Collagenase (Santyl) 1 applic DAILY TOP Last administered on 06/15/18 09:37; Admin Dose 1 APPLIC; Start 06/01/18 at 09:00 Clonidine (Catapres) 0.1 mg Q6H PRN PO ELEVATED BLOOD PRESSURE Last administered on 06/11/18 06:24; Admin Dose 0.1 MG; Start 06/03/18 at 03:30 Citric Acid/ Sodium Citrate (Bicitra) 30 ml TID PO Last administered on 06/15/18 09:37; Admin Dose 30 ML; Start 06/06/18 at 13:00 Metoprolol Tartrate (Lopressor) 75 mg Q8 GTB Last administered on 06/15/18 05:23; Admin Dose 75 MG; Start 06/08/18 at 14:00 Bumetanide (Bumex) 1 mg BID DIURETICS GTB Last administered on 06/15/18 05:24; Admin Dose 1 MG; Start 06/11/18 at 18:00 Amiodarone HCl (Cordarone) 200 mg Q12 PO Last administered on 06/15/18 09:37; Admin Dose 200 MG; Start 06/12/18 at 21:00 Ciprofloxacin (Cipro) 500 mg DAILY@06 NGT Last administered on 06/15/18 05:23; Admin Dose 500 MG; Start 06/13/18 at 06:00; Stop 06/16/18 at 05:59 Collagenase (Santyl) 1 applic PRN PRN TOP WHEN SOILED; Start 06/13/18 at 01:00 Nystatin (Nystatin Powder) 1 applic BID TOP Last administered on 06/15/18 09:39; Admin Dose 1 APPLIC; Start 06/13/18 at 14:00 Vancomycin HCl (Vancomycin Oral Syringe) 250 mg BID GTB Last administered on 06/15/18 09:37; Admin Dose 250 MG; Start 06/15/18 at 09:00; Stop 06/22/18 at 08:59 Vancomycin HCl (Vancomycin Oral Syringe) 250 mg DAILY GTB ; Start 06/22/18 at 09:00; Stop 06/29/18 at 08:59 Vancomycin HCl (Vancomycin Oral Syringe) 250 mg Q48H GTB ; Start 06/29/18 at 14:00; Stop 07/06/18 at 13:59 ELOISA LAURA Jun 15, 2018 10:36
--- NOTE | 2018-06-15 10:42 | PN ---
Date/Time of Note Date/Time of Note DATE: 06/15/18 TIME: 10:38 Assessment/Plan VTE Prophylaxis Risk score (from [facility])>0 risk: 11 SCD applied (from [facility]): Yes SCD contraindicated: other Pharmacological prophylaxis: other Pharm contraindication: other Lines/Catheters IV Catheter Type (from [facility]): PICC Line Central line still needed: Yes Urinary Cath still in place: Yes Reason Cath still needed: urinary retention Assessment/Plan Assessment/Plan - Acute abdominal pain - CT ordered - NPO/ IVF - GI consulted - cont to monitor -Atrial fibrillation was rapid ventricular response, s/p amiodarone drip. Rate is well controlled on p.o. amiodarone and metoprolol. - Dr. Scanlon is following in cardiology consultation. -Septic shock secondary to urinary tract infection, anterior neck soft tissue infection, and C. difficile colitis, resolving. - Continue antibiotics per ID. Dr. Brian Doyle is following in infection disease consultation. -Acute respiratory failure requiring intubation and ventilatory support. - Dr. Lambert is following in pulmonology consultation. -S/p tracheostomy on 05/29/18. -Acute kidney injury on chronic kidney disease. Started on HD this admission. - Dr. Mckeon is following in nephrology consultation. -Anemia of chronic inflammation, stool for OB is negative, status post blood transfusion. Continue Epogen. -Metabolic acidosis, resolved. -Acute diastolic congestive heart failure. -Paroxysmal atrial fibrillation -COPD -Dysphagia with PEG. -G-tube mild malfunction, changed by GI Dr. Carolina is following in gastroenterology consultation. -Obesity- weight management Patient is seen in collaboration with Dr Eisenberg. dw staff nad C/O abdominal pain last night ; CT ordered; GI consulted Leukocytosis; afebrile CR 1.86 today refuses ADLs at times no new events reported last night dw staff Hypokalemia- replace K, BMP am Hypernatremia- - resolved Leukocytosis; afebrile CR 1.86 today refuses ADLs at times no new events reported last night dw staff Result Diagram: 06/15/18 0611 06/15/18 0611 Results 24hrs Laboratory Tests Test 06/15/18 06:11 White Blood Count 13.3 H Red Blood Count 2.26 L Hemoglobin 7.5 L Hematocrit 25.2 L Mean Corpuscular Volume 111.5 H Mean Corpuscular Hemoglobin 33.2 H Mean Corpuscular Hemoglobin Concent 29.8 L Red Cell Distribution Width 24.4 H Platelet Count 272 Mean Platelet Volume 10.1 Immature Granulocytes % 0.600 H Neutrophils % 82.8 H Lymphocytes % 8.5 L Monocytes % 4.1 Eosinophils % 3.8 Basophils % 0.2 Nucleated Red Blood Cells % 0.0 Immature Granulocytes # 0.080 H Neutrophils # 11.0 H Lymphocytes # 1.1 Monocytes # 0.5 Eosinophils # 0.5 Basophils # 0.0 Nucleated Red Blood Cells # 0.0 Sodium Level 141 Potassium Level 3.6 Chloride Level 106 Carbon Dioxide Level 25 Anion Gap 10 Blood Urea Nitrogen 66 H Creatinine 1.86 H Est Glomerular Filtrat Rate mL/min Glucose Level 112 Calcium Level 9.6 Total Bilirubin 0.1 L Direct Bilirubin 0.00 Indirect Bilirubin 0.1 Aspartate Amino Transf (AST/SGOT) 13 L Alanine Aminotransferase (ALT/SGPT) 12 L Alkaline Phosphatase 75 Total Protein 6.4 Albumin 2.9 L Globulin 3.50 H Albumin/Globulin Ratio 0.82 Subjective 24 Hr Interval Summary Free Text/Dictation C/O abdominal pain last night ; CT ordered; GI consulted Leukocytosis; afebrile CR 1.86 today refuses ADLs at times no new events reported last night dw staff Exam/Review of Systems Exam Vitals Vital Signs Date Temp Pulse Resp B/P (MAP) Pulse Ox O2 O2 Flow FiO2 Time Delivery Rate 06/15/18 82 20 100 30 09:15 06/15/18 98.3 140/67 07:51 (91) 06/13/18 Trach 16:10 Collar Intake and Output 06/14/18 06/14/18 06/15/18 1515:00 23:00 07:00 IntakeIntake Total 1080 ml 1080 ml 1080 ml OutputOutput Total 700 ml 1550 ml 750 ml BalanceBalance 380 ml -470 ml 330 ml Constitutional: alert, non-verbal Psych: nl mood/affect Head: normocephalic Eyes: nl lids, nl sclera ENMT: nl external ears & nose Neck: non-tender Respiratory: diminished breath sounds Cardiovascular: nl pulses, other Gastrointestinal: soft, tender ( RUQ) Musculoskeletal: muscle weakness Extremities: normal pulses Neurological: other Lymph: nontender Results Results 24hrs Laboratory Tests Test 06/15/18 06:11 White Blood Count 13.3 H Red Blood Count 2.26 L Hemoglobin 7.5 L Hematocrit 25.2 L Mean Corpuscular Volume 111.5 H Mean Corpuscular Hemoglobin 33.2 H Mean Corpuscular Hemoglobin Concent 29.8 L Red Cell Distribution Width 24.4 H Platelet Count 272 Mean Platelet Volume 10.1 Immature Granulocytes % 0.600 H Neutrophils % 82.8 H Lymphocytes % 8.5 L Monocytes % 4.1 Eosinophils % 3.8 Basophils % 0.2 Nucleated Red Blood Cells % 0.0 Immature Granulocytes # 0.080 H Neutrophils # 11.0 H Lymphocytes # 1.1 Monocytes # 0.5 Eosinophils # 0.5 Basophils # 0.0 Nucleated Red Blood Cells # 0.0 Sodium Level 141 Potassium Level 3.6 Chloride Level 106 Carbon Dioxide Level 25 Anion Gap 10 Blood Urea Nitrogen 66 H Creatinine 1.86 H Est Glomerular Filtrat Rate mL/min Glucose Level 112 Calcium Level 9.6 Total Bilirubin 0.1 L Direct Bilirubin 0.00 Indirect Bilirubin 0.1 Aspartate Amino Transf (AST/SGOT) 13 L Alanine Aminotransferase (ALT/SGPT) 12 L Alkaline Phosphatase 75 Total Protein 6.4 Albumin 2.9 L Globulin 3.50 H Albumin/Globulin Ratio 0.82 Medications Medication Current Medications IV Flush (NS 10 ml) 10 ml PRN IV ; Start 05/06/18 at 20:30 Ascorbic Acid (Vitamin C) 500 mg DAILY GTB Last administered on 06/15/18at 09:38; Admin Dose 500 MG; Start 05/07/18 at 09:00 Albuterol/ Ipratropium (Duoneb) 3 ml Q2H RESP THERAPY PRN HHN SHORTNESS OF BREATH; Start 05/06/18 at 23:30 Zinc Sulfate (Zinc Sulfate) 220 mg DAILY GTB Last administered on 06/15/18 09:37; Admin Dose 220 MG; Start 05/07/18 at 09:00 Ondansetron HCl (Zofran Tab) 4 mg Q6H PRN GTB NAUSEA AND/OR VOMITING Last administered on 05/31/18at 16:47; Admin Dose 4 MG; Start 05/07/18 at 00:15 Multivitamins (Multivitamin) 30 ml DAILY GTB Last administered on 06/15/18at 09:37; Admin Dose 30 ML; Start 05/07/18 at 09:00 Miscellaneous Information (Pending Santyl Order For Wound Care) This patient goldman... PRN PRN XX WOUND CARE; Start 05/09/18 at 17:00 Heparin Sodium (Porcine) (Heparin (1000 Units/ml)) 2,800 unit AFTER DIALYSIS CATHETER Last administered on 05/29/18 18:24; Admin Dose 2,800 UNIT; Start 05/16/18 at 16:30 Epoetin Zen-epbx (RETACRIT(esrd)) 20,000 unit Tu@1700 SC Last administered on 06/09/18 17:11; Admin Dose 20,000 UNIT; Start 05/19/18 at 17:00 Spironolactone (Aldactone) 50 mg DAILY GTB Last administered on 06/15/18 09:38; Admin Dose 50 MG; Start 05/21/18 at 09:00 Famotidine (Pepcid) 20 mg DAILY PEG Last administered on 06/15/18 09:38; Admin Dose 20 MG; Start 05/23/18 at 09:00 Morphine Sulfate (morphine) 6 mg Q4H PRN PEG SEVERE PAIN LEVEL 7-10 Last administered on 06/15/18 09:39; Admin Dose 6 MG; Start 05/22/18 at 17:00 Albumin Human 100 ml @ 100 mls/hr DURING DIALYSIS PRN IV hypotension on hd Last administered on 05/29/18 14:49; Admin Dose 100 MLS/HR; Start 05/27/18 at 07:30 Cholestyramine Resin (Questran Light) 4 gm 0600,1200,1800,2300 PO Last administered on 06/15/18 05:36; Admin Dose 4 GM; Start 05/27/18 at 18:00 Lorazepam (Ativan) 0.5 mg Q4H PRN IV ANXIETY; Start 05/30/18 at 12:00 Acetaminophen (Tylenol Tab) 650 mg Q4H PRN PO MILD PAIN(1-3)OR ELEVATED TEMP Last administered on 06/10/18 21:44; Admin Dose 650 MG; Start 05/31/18 at 13:00 Metoclopramide HCl (Reglan) 5 mg Q6 IV Last administered on 06/15/18 05:24; Admin Dose 5 MG; Start 05/31/18 at 13:00 Collagenase (Santyl) 1 applic DAILY TOP Last administered on 06/15/18 09:37; Admin Dose 1 APPLIC; Start 06/01/18 at 09:00 Clonidine (Catapres) 0.1 mg Q6H PRN PO ELEVATED BLOOD PRESSURE Last administered on 06/11/18 06:24; Admin Dose 0.1 MG; Start 06/03/18 at 03:30 Citric Acid/ Sodium Citrate (Bicitra) 30 ml TID PO Last administered on 06/15/18 09:37; Admin Dose 30 ML; Start 06/06/18 at 13:00 Metoprolol Tartrate (Lopressor) 75 mg Q8 GTB Last administered on 06/15/18 05:23; Admin Dose 75 MG; Start 06/08/18 at 14:00 Bumetanide (Bumex) 1 mg BID DIURETICS GTB Last administered on 06/15/18 05:24 ; Admin Dose 1 MG; Start 06/11/18 at 18:00 Amiodarone HCl (Cordarone) 200 mg Q12 PO Last administered on 06/15/18 09:37; Admin Dose 200 MG; Start 06/12/18 at 21:00 Ciprofloxacin (Cipro) 500 mg DAILY@06 NGT Last administered on 06/15/18 05:23; Admin Dose 500 MG; Start 06/13/18 at 06:00; Stop 06/16/18 at 05:59 Collagenase (Santyl) 1 applic PRN PRN TOP WHEN SOILED; Start 06/13/18 at 01:00 Nystatin (Nystatin Powder) 1 applic BID TOP Last administered on 06/15/18 09:39; Admin Dose 1 APPLIC; Start 06/13/18 at 14:00 Vancomycin HCl (Vancomycin Oral Syringe) 250 mg BID GTB Last administered on 06/15/18 09:37; Admin Dose 250 MG; Start 06/15/18 at 09:00; Stop 06/22/18 at 08:59 Vancomycin HCl (Vancomycin Oral Syringe) 250 mg DAILY GTB ; Start 06/22/18 at 09:00; Stop 06/29/18 at 08:59 Vancomycin HCl (Vancomycin Oral Syringe) 250 mg Q48H GTB ; Start 06/29/18 at 14:00; Stop 07/06/18 at 13:59 KERON MORAN Jun 15, 2018 10:42
--- NOTE | 2018-06-15 13:52 | CONS ---
DATE OF ADMISSION: 05/06/2018 DATE OF CONSULTATION: TYPE OF CONSULTATION: Gastroenterology. HISTORY OF PRESENT ILLNESS: Patient is a 73-year-old female status post G-tube tract urosepsis, now complains of abdominal pain, so GI consult was called in. No nausea, no vomiting, no GI bleeding. PHYSICAL EXAMINATION VITALS: Stable. ABDOMEN: Benign, obese, G-tube is in place. LUNGS: Clear. EXTREMITIES: No edema. CENTRAL NERVOUS SYSTEM: The patient is alert, awake. LABORATORY DATA: Hematocrit is 25.2. WBC is 13.3, mildly elevated. BUN is 66, creatinine 1.86. LF Ts all within normal limits. Urine culture had pneumonia and pseudomonas. Blood cultures all negati ve. MEDICATIONS: All reviewed. Patient is still on: 1. Vancomycin. 2. Cipro. 3. Amiodarone. 4. Reglan. 5. Spironolactone. IMPRESSION: 1. Respiratory failure, on vent. 2. Renal failure. 3. History of Clostridium difficile colitis. 4. Abdominal pain. 5. Status post G-tube for dysphagia. 6. Atrial fibrillation. 7. Anemia of chronic disease. 8. Diastolic heart failure. PLAN: Continue present care. We will taper off on vancomycin. CAT scan has been ordered and I will review that. Dictated By: QUINTEN EPPS/TABATHA Conf#: [id number] DID#: [id number] CC: ROLAND GIRON MD;*EndCC*
--- NOTE | 2018-06-15 15:25 | CONS ---
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 colonization of the airway by pseudomonas and ESBL+klebsiella - h/o possible, recurrent HCAP due to pseudomonas and ESBL+klebsiella - h/o recurrent HCAP due to MRSA and Enterobacter (culture of tracheal aspirate on 07/16/2017 that was collected at [facility]) . Pt took vancomycin and ceftazidime - h/o decannulation prior to admission - h/o tracheostomy on 06/11/2017 - h/o SIRS from UGIB in 2018 - h/o thoracentesis on 07/18/2017, transudative (protein <2, LDH 279) - h/o bleeding from the trach site in 2018 - h/o septic shock due to pneumonia, ARDS, bacteremia, fungemia in 2018 - h/o ARDS in 2018 - h/o smoking - COPD - h/o ILD per medical record - h/o PAF, improved # GI - C diff colitis, diagnosed on 05/11/2018. IV metronidazole (05/11/2018-05/29/2018; restart 05/30/2018-06/05/18), pGT vancomycin induction followed by taper (05/11/2018-) - h/o intermittent diarrhea, Pt had multiple negative C. diff tests at [facility] at [facility] in the past; none was positive until 05/11/2018 - dysphagia - h/o PEG placement 06/13/2018 - protein calorie malnutrition - h/o coffee ground emesis/UGIB on 12/23/2017 due to deep ulceration of distal esophagus and gastritis on EGD 12/26/2017. No e/o H. pylori - h/o possible appendicitis on CT on 11/22/2017, Pt took ertapenem (11/24/2017- 12/01/2017) - h/o extensive adhesions lower abdominal and pelvis between small bowel to each other and to colon and to abdominal wall, anterior pelvic wall chronic abscess secondary to probably an old perforated diverticulitis, torsion of small bowel around these dense adhesion causing multiple obstructive points - h/o laparoscopic exploration and extensive lysis of adhesions and drainage of anterior pelvic wall abscess 09/16/2017. Cultures were negative, no e/o malignancy. Pt took pip/tazo (09/16/2017-09/26/2017) - h/o EGD and exchange of PEG on 09/01/2017 - h/o partial obstruction mid jejunum in L anterior central pelvis with suggestion of a 3 cm soft tissue mass on CT 08/28/2017 - h/o internal stomal deep ulcer behind the internal bumper, gastritis and esophagitis, Rodriguez's cannot be ruled out, per EGD with biopsy 07/23/2017 - h/o GIB s/p flex sig showed polyp; stool OB negative on 06/29/17 - h/o stool OB positive status - h/o SBO and ileus due to pain meds - h/o mildly elevated CEA # renal/ - UTI due to pseudomonas and ESBL+klebsiella on 06/09/2018, Pt took one dose of fosfomycin on 06/10/2018 and cipro 06/12-06/15/2018 - anasarca - started on HD on 05/15/2018, via Juan in R groin - recurrent NATHAN on CKD - 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 Her strain of CRE was sensitive to colistin, Avycaz, and Vabomere but resistant to Zerbaxa (reported on 05/19/2018) - Hyponatremia - Hyperkalemia, now hypokalemia - Metabolic acidosis - adrenal insufficiency - h/o vaginal bleed in 2018 - h/o colonization of urinary tract by ESBL+klebsiella, VRE - h/o recurrent, symptomatic UTI due to carbapenem-resistant kleb (MDR strain) per urine culture 10/04/17, 10/09/17, 10/21/2017, P took colistin (10/09/2017- 10/15/2017), fosfomycin for carbapenemase-producing klebsiella and VRE on 10/25/2017 and 10/28/2017 - h/o funguria - h/o urinary retention # fungemia, bacteremia 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; Pt declined surgery for MVR per outside medical records; TTE 07/01/17 did not mention any thrombus; s/p voriconazole (05/25/2017-08/01/2017) - h/o bacteremia due to MSSA and proteus s/p ceftriaxone; repeat blood cultures were negative on 06/14/2017 # musculoskeletal and dermatological - L hand pain - dry skin - chronic wound of LLE - h/o infection of wound of LLE - h/o debridement of wound of LLE on 08/06/2017 - h/o recurrent herpes labialis, Pt took acyclovir, valacyclovir - h/o Osler's nodes (eschar) of R toes with erythematous skin; desquamation of the skin and open lacerations on R plantar foot. improved. Probable manifestation of endocarditis. Pt declined MRI on 08/06/2017 - h/o infection of R toes due to pseudomonas. coagulase negative Staph likely a colonizer - h/o intertrigo of the groin, resolved with nystatin powder - h/o scabies, locally crusted lesion over L scapula, s/p permethrin cream and pGT ivermectin on 08/11/2017, 08/12/2017, 08/19/2017. Repeat skin scraping on 08/21/2017 was negative for scabies # psych, neuro - decreased hearing b/l - s/p acute toxic metabolic encephalopathy - h/o critical illness polyneuropathy - anxiety/depression, bipolar d/o, seen by Psychiatry in the past - chronic pain syndrome - h/o medical non-compliance: she would refuse her medications, treatment and straight catheterization in 2018 # hematological, vascular - chronic anemia requiring blood transfusion intermittently - macrocytic anemia - 3.1 cm AAA on imaging - PVD recommendations: - ordered: repeat urinalysis and urine culture, XR of L hand - pending: CT abd/pel - continue pGT vancomycin taper: 06/15/2018-06/21/2018 bid, 06/22-06/28: daily, 06/29- 07/05: q48hrs management d/w Pt's JAYANT Leigh Consultation Date/Type/Reason Admit Date/Time May 06, 2018 at 17:38 Initial Consult Date 05/10/18 Type of Consult ID Requesting Provider: ROLAND GIRON MD Date/Time of Note DATE: 06/15/18 TIME: 15:18 24 HR Interval Summary Constitutional: other (Pt shook her head) Detailed Summary Respiratory: shortness of breath Cardiovascular: No chest pain Gastrointestinal: pain, other (+rectal tube); No nausea Genitourinary: other (pain in the bladder) Musculoskeletal: other (L hand pain) Skin: No pruritis Neurologic: No headache Exam/Review of Systems Exam Vitals Vital Signs Date Temp Pulse Resp B/P (MAP) Pulse Ox O2 O2 Flow FiO2 Time Delivery Rate 06/15/18 74 20 100 30 13:30 06/15/18 98.0 144/84 11:32 (104) 06/13/18 Trach 16:10 Collar Intake and Output 06/14/18 06/14/18 06/15/18 1515:00 23:00 07:00 IntakeIntake Total 1080 ml 1080 ml 1080 ml OutputOutput Total 700 ml 1550 ml 750 ml BalanceBalance 380 ml -470 ml 330 ml Constitutional: frail, obese Psych: no complaints, nl mood/affect Head: normocephalic, atraumatic Eyes: nl conjunctiva, nl lids ENMT: nl external ears & nose, nl nasal mucosa & septum, other (dry mucus membranes) Neck: other (trach) Respiratory: crackles/rales, diminished breath sounds Cardiovascular: regular rate and rhythm, nl pulses Gastrointestinal: soft, tender (lower abdomen); No ascites, No distended Genitourinary - Female: other (+Garza, supra-pubic tenderness) Musculoskeletal: other (atrophy og b/l thenar eminence and hypothenar eminence) Extremities: No edema Neurological: lethargic Skin: other (overall dry skin) Results Result Diagram: 06/15/18 0611 06/15/18 0611 Results 24hrs Laboratory Tests Test 06/15/18 06:11 White Blood Count 13.3 H Red Blood Count 2.26 L Hemoglobin 7.5 L Hematocrit 25.2 L Mean Corpuscular Volume 111.5 H Mean Corpuscular Hemoglobin 33.2 H Mean Corpuscular Hemoglobin Concent 29.8 L Red Cell Distribution Width 24.4 H Platelet Count 272 Mean Platelet Volume 10.1 Immature Granulocytes % 0.600 H Neutrophils % 82.8 H Lymphocytes % 8.5 L Monocytes % 4.1 Eosinophils % 3.8 Basophils % 0.2 Nucleated Red Blood Cells % 0.0 Immature Granulocytes # 0.080 H Neutrophils # 11.0 H Lymphocytes # 1.1 Monocytes # 0.5 Eosinophils # 0.5 Basophils # 0.0 Nucleated Red Blood Cells # 0.0 Sodium Level 141 Potassium Level 3.6 Chloride Level 106 Carbon Dioxide Level 25 Anion Gap 10 Blood Urea Nitrogen 66 H Creatinine 1.86 H Est Glomerular Filtrat Rate mL/min Glucose Level 112 Calcium Level 9.6 Total Bilirubin 0.1 L Direct Bilirubin 0.00 Indirect Bilirubin 0.1 Aspartate Amino Transf (AST/SGOT) 13 L Alanine Aminotransferase (ALT/SGPT) 12 L Alkaline Phosphatase 75 Total Protein 6.4 Albumin 2.9 L Globulin 3.50 H Albumin/Globulin Ratio 0.82 Medications Medication Current Medications IV Flush (NS 10 ml) 10 ml PRN IV ; Start 05/06/18 at 20:30 Ascorbic Acid (Vitamin C) 500 mg DAILY GTB Last administered on 06/15/18 09:38; Admin Dose 500 MG; Start 05/07/18 at 09:00 Albuterol/ Ipratropium (Duoneb) 3 ml Q2H RESP THERAPY PRN HHN SHORTNESS OF BREATH; Start 05/06/18 at 23:30 Zinc Sulfate (Zinc Sulfate) 220 mg DAILY GTB Last administered on 06/15/18 09:37; Admin Dose 220 MG; Start 05/07/18 at 09:00 Ondansetron HCl (Zofran Tab) 4 mg Q6H PRN GTB NAUSEA AND/OR VOMITING Last administered on 05/31/18 16:47; Admin Dose 4 MG; Start 05/07/18 at 00:15 Multivitamins (Multivitamin) 30 ml DAILY GTB Last administered on 06/15/18 09:37; Admin Dose 30 ML; Start 05/07/18 at 09:00 Miscellaneous Information (Pending Santyl Order For Wound Care) This patient goldman... PRN PRN XX WOUND CARE; Start 05/09/18 at 17:00 Heparin Sodium (Porcine) (Heparin (1000 Units/ml)) 2,800 unit AFTER DIALYSIS CATHETER Last administered on 05/29/18 18:24; Admin Dose 2,800 UNIT; Start 05/16/18 at 16:30 Epoetin Zen-epbx (RETACRIT(esrd)) 20,000 unit Tu@1700 SC Last administered on 06/09/18 17:11; Admin Dose 20,000 UNIT; Start 05/19/18 at 17:00 Spironolactone (Aldactone) 50 mg DAILY GTB Last administered on 06/15/18 09:38; Admin Dose 50 MG; Start 05/21/18 at 09:00 Famotidine (Pepcid) 20 mg DAILY PEG Last administered on 06/15/18 09:38; Admin Dose 20 MG; Start 05/23/18 at 09:00 Morphine Sulfate (morphine) 6 mg Q4H PRN PEG SEVERE PAIN LEVEL 7-10 Last administered on 06/15/18 09:39; Admin Dose 6 MG; Start 05/22/18 at 17:00 Albumin Human 100 ml @ 100 mls/hr DURING DIALYSIS PRN IV hypotension on hd Last administered on 05/29/18 14:49; Admin Dose 100 MLS/HR; Start 05/27/18 at 07:30 Cholestyramine Resin (Questran Light) 4 gm 0600,1200,1800,2300 PO Last administered on 06/15/18 12:36; Admin Dose 4 GM; Start 05/27/18 at 18:00 Lorazepam (Ativan) 0.5 mg Q4H PRN IV ANXIETY; Start 05/30/18 at 12:00 Acetaminophen (Tylenol Tab) 650 mg Q4H PRN PO MILD PAIN(1-3)OR ELEVATED TEMP L ast administered on 06/10/18 21:44; Admin Dose 650 MG; Start 05/31/18 at 13:00 Metoclopramide HCl (Reglan) 5 mg Q6 IV Last administered on 06/15/18 12:36; Admin Dose 5 MG; Start 05/31/18 at 13:00 Collagenase (Santyl) 1 applic DAILY TOP Last administered on 06/15/18 09:37; Admin Dose 1 APPLIC; Start 06/01/18 at 09:00 Clonidine (Catapres) 0.1 mg Q6H PRN PO ELEVATED BLOOD PRESSURE Last administ ered on 06/11/18 06:24; Admin Dose 0.1 MG; Start 06/03/18 at 03:30 Citric Acid/ Sodium Citrate (Bicitra) 30 ml TID PO Last administered on 06/15/18 12:36; Admin Dose 30 ML; Start 06/06/18 at 13:00 Metoprolol Tartrate (Lopressor) 75 mg Q8 GTB Last administered on 06/15/18 14:45; Admin Dose 75 MG; Start 06/08/18 at 14:00 Bumetanide (Bumex) 1 mg BID DIURETICS GTB Last administered on 06/15/18 05:24; Admin Dose 1 MG; Start 06/11/18 at 18:00 Amiodarone HCl (Cordarone) 200 mg Q12 PO Last administered on 06/15/18 09:37; Admin Dose 200 MG; Start 06/12/18 at 21:00 Ciprofloxacin (Cipro) 500 mg DAILY@06 NGT Last administered on 06/15/18 05:23; Admin Dose 500 MG; Start 06/13/18 at 06:00; Stop 06/16/18 at 05:59 Collagenase (Santyl) 1 applic PRN PRN TOP WHEN SOILED; Start 06/13/18 at 01:00 Nystatin (Nystatin Powder) 1 applic BID TOP Last administered on 06/15/18 09:39; Admin Dose 1 APPLIC; Start 06/13/18 at 14:00 Vancomycin HCl (Vancomycin Oral Syringe) 250 mg BID GTB Last administered on 06/15/18 09:37; Admin Dose 250 MG; Start 06/15/18 at 09:00; Stop 06/22/18 at 08:59 Vancomycin HCl (Vancomycin Oral Syringe) 250 mg DAILY GTB ; Start 06/22/18 at 09:00; Stop 06/29/18 at 08:59 Vancomycin HCl (Vancomycin Oral Syringe) 250 mg Q48H GTB ; Start 06/29/18 at 14:00; Stop 07/06/18 at 13:59 CELESTINE MURPHY M.D. Jun 15, 2018 15:25
--- NOTE | 2018-06-15 16:17 | CONS ---
Assessment/Plan Assessment/Plan Hospital Course (Demo Recall) Septic as well as hemorrhagic shock-improving Acute respiratory failure status post intubation Acute blood loss anemia Septic shock and hemorrhagic shock History of respiratory failure status post decannulation Preserved ejection fraction echocardiogram 05/10/2018 Paroxysmal atrial fibrillation Acute kidney injury -Patient with paroxysmal atrial fibrillation, has remained sinus with beta-blo cker and amiodarone -Vent management as per pulmonary -Fluid management and electrolytes as per renal -Antibiotics as per infectious disease -No anticoagulation given recurrent anemia requiring blood transfusions Consultation Date/Type/Reason Admit Date/Time May 06, 2018 at 17:38 Initial Consult Date 05/10/18 Type of Consult Cardiology Requesting Provider: ROLAND GIRON MD Date/Time of Note DATE: 06/15/18 TIME: 16:15 24 HR Interval Summary Free Text/Dictation no sob, cp, palp Exam/Review of Systems Vital Signs Vitals Vital Signs Date Temp Pulse Resp B/P (MAP) Pulse Ox O2 O2 Flow FiO2 Time Delivery Rate 06/15/18 78 20 100 30 16:06 06/15/18 97.5 134/75 15:36 (94) 06/13/18 Trach 16:10 Collar Intake and Output 06/14/18 06/14/18 06/15/18 1515:00 23:00 07:00 IntakeIntake Total 1080 ml 1080 ml 1080 ml OutputOutput Total 700 ml 1550 ml 750 ml BalanceBalance 380 ml -470 ml 330 ml Exam Constitutional: alert (nad, follows commands) Head: normocephalic Respiratory: other (course bs, no wheeze) Cardiovascular: regular rate and rhythm, other (s1s2) Gastrointestinal: soft, non-tender, bowel sounds Extremities: edema Labs Result Diagram: 06/15/18 0611 06/15/18 0611 Results 24hrs Laboratory Tests Test 06/15/18 06:11 06/15/18 15:25 White Blood Count 13.3 H Red Blood Count 2.26 L Hemoglobin 7.5 L Hematocrit 25.2 L Mean Corpuscular Volume 111.5 H Mean Corpuscular Hemoglobin 33.2 H Mean Corpuscular Hemoglobin Concent 29.8 L Red Cell Distribution Width 24.4 H Platelet Count 272 Mean Platelet Volume 10.1 Immature Granulocytes % 0.600 H Neutrophils % 82.8 H Lymphocytes % 8.5 L Monocytes % 4.1 Eosinophils % 3.8 Basophils % 0.2 Nucleated Red Blood Cells % 0.0 Immature Granulocytes # 0.080 H Neutrophils # 11.0 H Lymphocytes # 1.1 Monocytes # 0.5 Eosinophils # 0.5 Basophils # 0.0 Nucleated Red Blood Cells # 0.0 Sodium Level 141 Potassium Level 3.6 Chloride Level 106 Carbon Dioxide Level 25 Anion Gap 10 Blood Urea Nitrogen 66 H Creatinine 1.86 H Est Glomerular Filtrat Rate mL/min Glucose Level 112 Calcium Level 9.6 Total Bilirubin 0.1 L Direct Bilirubin 0.00 Indirect Bilirubin 0.1 Aspartate Amino Transf (AST/SGOT) 13 L Alanine Aminotransferase (ALT/SGPT) 12 L Alkaline Phosphatase 75 Total Protein 6.4 Albumin 2.9 L Globulin 3.50 H Albumin/Globulin Ratio 0.82 Urine Color YELLOW Urine Clarity TURBID A Urine pH 6.0 Urine Specific [place] 1.012 Urine Ketones NEGATIVE Urine Nitrite POSITIVE A Urine Bilirubin NEGATIVE Urine Urobilinogen NEGATIVE Urine Leukocyte Esterase 2+ H Urine Microscopic RBC 48 H Urine Microscopic WBC > 182 H Urine Transitional Epithelial Cells MODERATE Urine Bacteria MANY A Urine Hyaline Casts MODERATE Urine Mucus FEW A Urine Hemoglobin 2+ H Urine Glucose NEGATIVE Urine Total Protein 1+ H Medications Medications Current Medications IV Flush (NS 10 ml) 10 ml PRN IV ; Start 05/06/18 at 20:30 Ascorbic Acid (Vitamin C) 500 mg DAILY GTB Last administered on 06/15/18at 09:38; Admin Dose 500 MG; Start 05/07/18 at 09:00 Albuterol/ Ipratropium (Duoneb) 3 ml Q2H RESP THERAPY PRN HHN SHORTNESS OF BREATH; Start 05/06/18 at 23:30 Zinc Sulfate (Zinc Sulfate) 220 mg DAILY GTB Last administered on 06/15/18at 09:37; Admin Dose 220 MG; Start 05/07/18 at 09:00 Ondansetron HCl (Zofran Tab) 4 mg Q6H PRN GTB NAUSEA AND/OR VOMITING Last administered on 05/31/18at 16:47; Admin Dose 4 MG; Start 05/07/18 at 00:15 Multivitamins (Multivitamin) 30 ml DAILY GTB Last administered on 06/15/18 09:37; Admin Dose 30 ML; Start 05/07/18 at 09:00 Miscellaneous Information (Pending Santyl Order For Wound Care) This patient goldman... PRN PRN XX WOUND CARE; Start 05/09/18 at 17:00 Heparin Sodium (Porcine) (Heparin (1000 Units/ml)) 2,800 unit AFTER DIALYSIS CATHETER Last administered on 05/29/18 18:24; Admin Dose 2,800 UNIT; Start 05/16/18 at 16:30 Epoetin Zen-epbx (RETACRIT(esrd)) 20,000 unit Tu@1700 SC Last administered on 06/09/18 17:11; Admin Dose 20,000 UNIT; Start 05/19/18 at 17:00 Spironolactone (Aldactone) 50 mg DAILY GTB Last administered on 06/15/18 09:38; Admin Dose 50 MG; Start 05/21/18 at 09:00 Famotidine (Pepcid) 20 mg DAILY PEG Last administered on 06/15/18 09:38; Admin Dose 20 MG; Start 05/23/18 at 09:00 Morphine Sulfate (morphine) 6 mg Q4H PRN PEG SEVERE PAIN LEVEL 7-10 Last administered on 06/15/18 15:25; Admin Dose 6 MG; Start 05/22/18 at 17:00 Albumin Human 100 ml @ 100 mls/hr DURING DIALYSIS PRN IV hypotension on hd Last administered on 05/29/18 14:49; Admin Dose 100 MLS/HR; Start 05/27/18 at 07:30 Cholestyramine Resin (Questran Light) 4 gm 0600,1200,1800,2300 PO Last administered on 06/15/18 12:36; Admin Dose 4 GM; Start 05/27/18 at 18:00 Lorazepam (Ativan) 0.5 mg Q4H PRN IV ANXIETY; Start 05/30/18 at 12:00 Acetaminophen (Tylenol Tab) 650 mg Q4H PRN PO MILD PAIN(1-3)OR ELEVATED TEMP Last administered on 06/10/18 21:44; Admin Dose 650 MG; Start 05/31/18 at 13:00 Metoclopramide HCl (Reglan) 5 mg Q6 IV Last administered on 06/15/18 12:36; Admin Dose 5 MG; Start 05/31/18 at 13:00 Collagenase (Santyl) 1 applic DAILY TOP Last administered on 06/15/18 09:37; Admin Dose 1 APPLIC; Start 06/01/18 at 09:00 Clonidine (Catapres) 0.1 mg Q6H PRN PO ELEVATED BLOOD PRESSURE Last administered on 06/11/18 06:24; Admin Dose 0.1 MG; Start 06/03/18 at 03:30 Citric Acid/ Sodium Citrate (Bicitra) 30 ml TID PO Last administered on 06/15/18 12:36; Admin Dose 30 ML; Start 06/06/18 at 13:00 Metoprolol Tartrate (Lopressor) 75 mg Q8 GTB Last administered on 06/15/18 14:45; Admin Dose 75 MG; Start 06/08/18 at 14:00 Bumetanide (Bumex) 1 mg BID DIURETICS GTB Last administered on 06/15/18 05:24; Admin Dose 1 MG; Start 06/11/18 at 18:00 Amiodarone HCl (Cordarone) 200 mg Q12 PO Last administered on 06/15/18 09:37; Admin Dose 200 MG; Start 06/12/18 at 21:00 Ciprofloxacin (Cipro) 500 mg DAILY@06 NGT Last administered on 06/15/18 05:23; Admin Dose 500 MG; Start 06/13/18 at 06:00; Stop 06/16/18 at 05:59 Collagenase (Santyl) 1 applic PRN PRN TOP WHEN SOILED; Start 06/13/18 at 01:00 Nystatin (Nystatin Powder) 1 applic BID TOP Last administered on 06/15/18 09:39; Admin Dose 1 APPLIC; Start 06/13/18 at 14:00 Vancomycin HCl (Vancomycin Oral Syringe) 250 mg BID GTB Last administered on 06/15/18 09:37; Admin Dose 250 MG; Start 06/15/18 at 09:00; Stop 06/22/18 at 08:59 Vancomycin HCl (Vancomycin Oral Syringe) 250 mg DAILY GTB ; Start 06/22/18 at 09:00; Stop 06/29/18 at 08:59 Vancomycin HCl (Vancomycin Oral Syringe) 250 mg Q48H GTB ; Start 06/29/18 at 14:00; Stop 07/06/18 at 13:59 Evangelista Scanlon DO Jun 15, 2018 16:17
[2018-06-15] MEDS ORDERED: morphine 2 MG INJ IV STA (17:43)
[2018-06-16] VITALS (20 sets, daily range): BP systolic 100–157; BP diastolic 49–124; PULSE 64–96; RESP 20–23
[2018-06-16] MEDS: METOCLOPRAMIDE 10 MG INJ IV SCH ×5 (00:51→23:09)
[2018-06-16] MEDS: METOPROLOL 25 MG TAB GTB SCH ×3 (06:13→21:10)
[2018-06-16] MEDS: BUMETANIDE 1 MG TAB GTB SCH ×2 (06:14→18:02)
[2018-06-16] MEDS: CHOLESTYRAMINE (LIGHT) 4 GM PACKET PO SCH ×4 (06:14→23:09)
--- NOTE | 2018-06-16 06:21 | PN ---
Date/Time of Note Date/Time of Note DATE: 06/16/18 TIME: 06:21 Assessment/Plan VTE Prophylaxis Risk score (from Ns)>0 risk: 11 [place] [facility] [place] contraindicated: other Pharmacological prophylaxis: other Pharm contraindication: other Lines/Catheters IV Catheter Type (from [facility]): PICC Line Central line still needed: Yes Urinary Cath still in place: Yes Reason Cath still needed: urinary retention Assessment/Plan Assessment/Plan - Acute abdominal pain - CT showed Air-fluid levels are seen throughout the small bowel and colon. Consider mild ileus versus enterocolitis. - NPO/ IVF - per GI - cont to monitor -Atrial fibrillation was rapid ventricular response, s/p amiodarone drip. Rate is well controlled on p.o. amiodarone and metoprolol. - Dr. Scanlon is following in cardiology consultation. -Septic shock secondary to urinary tract infection, anterior neck soft tissue infection, and C. difficile colitis, resolving. - Continue antibiotics per ID. Dr. Brian Doyle is following in infection disease consultation. -Acute respiratory failure requiring intubation and ventilatory support. - Dr. Lambert is following in pulmonology consultation. -S/p tracheostomy on 05/29/18. -Acute kidney injury on chronic kidney disease. Started on HD this admission. - Dr. Mckeon is following in nephrology consultation. -Anemia of chronic inflammation, stool for OB is negative, status post blood transfusion. Continue Epogen. -Metabolic acidosis, resolved. -Acute diastolic congestive heart failure. -Paroxysmal atrial fibrillation -COPD -Dysphagia with PEG. -G-tube mild malfunction, changed by GI Dr. Carolina is following in gastroenterology consultation. -Obesity- weight management Patient is seen in collaboration with Dr Eisenberg. staff Result Diagram: 06/15/18 0611 06/15/18 0611 Results 24hrs Laboratory Tests Test 06/15/18 15:25 Urine Color YELLOW Urine Clarity TURBID A Urine pH 6.0 Urine Specific [place] 1.012 Urine Ketones NEGATIVE Urine Nitrite POSITIVE A Urine Bilirubin NEGATIVE Urine Urobilinogen NEGATIVE Urine Leukocyte Esterase 2+ H Urine Microscopic RBC 48 H Urine Microscopic WBC > 182 H Urine Transitional Epithelial Cells MODERATE Urine Bacteria MANY A Urine Hyaline Casts MODERATE Urine Mucus FEW A Urine Hemoglobin 2+ H Urine Glucose NEGATIVE Urine Total Protein 1+ H Subjective 24 Hr Interval Summary Free Text/Dictation Leukocytosis; afebrile CR 1.86 today refuses ADLs at times no new events reported last night dw staff Subjective hx not possible: pt non-verbal Constitutional: requiring IVF, requiring O2 Exam/Review of Systems Exam Vitals Vital Signs Date Temp Pulse Resp B/P (MAP) Pulse Ox O2 O2 Flow FiO2 Time Delivery Rate 06/16/18 72 20 99 30 04:45 06/16/18 98.2 155/73 04:00 (100) 06/13/18 Trach 16:10 Collar Intake and Output 06/15/18 06/15/18 06/16/18 1515:00 23:00 07:00 IntakeIntake Total 320 ml OutputOutput Total 120 ml 750 ml 500 ml BalanceBalance 200 ml -750 ml -500 ml Constitutional: non-verbal, frail Psych: nl mood/affect Eyes: nl lids, nl sclera ENMT: nl external ears & nose Neck: other (trach intact) Respiratory: clear to auscultation, other Cardiovascular: nl pulses, other (s1s2) Gastrointestinal: soft, tender (diffuse tenderness) Musculoskeletal: joint tenderness, muscle weakness, range of motion Neurological: confused Results Results 24hrs Laboratory Tests Test 06/15/18 15:25 Urine Color YELLOW Urine Clarity TURBID A Urine pH 6.0 Urine Specific [place] 1.012 Urine Ketones NEGATIVE Urine Nitrite POSITIVE A Urine Bilirubin NEGATIVE Urine Urobilinogen NEGATIVE Urine Leukocyte Esterase 2+ H Urine Microscopic RBC 48 H Urine Microscopic WBC > 182 H Urine Transitional Epithelial Cells MODERATE Urine Bacteria MANY A Urine Hyaline Casts MODERATE Urine Mucus FEW A Urine Hemoglobin 2+ H Urine Glucose NEGATIVE Urine Total Protein 1+ H Medications Medication Current Medications IV Flush (NS 10 ml) 10 ml PRN IV ; Start 05/06/18 at 20:30 Ascorbic Acid (Vitamin C) 500 mg DAILY GTB Last administered on 06/15/18at 09:38; Admin Dose 500 MG; Start 05/07/18 at 09:00 Albuterol/ Ipratropium (Duoneb) 3 ml Q2H RESP THERAPY PRN HHN SHORTNESS OF BREATH; Start 05/06/18 at 23:30 Zinc Sulfate (Zinc Sulfate) 220 mg DAILY GTB Last administered on 06/15/18at 09:37; Admin Dose 220 MG; Start 05/07/18 at 09:00 Ondansetron HCl (Zofran Tab) 4 mg Q6H PRN GTB NAUSEA AND/OR VOMITING Last administered on 05/31/18 16:47; Admin Dose 4 MG; Start 05/07/18 at 00:15 Multivitamins (Multivitamin) 30 ml DAILY GTB Last administered on 06/15/18 09:37; Admin Dose 30 ML; Start 05/07/18 at 09:00 Miscellaneous Information (Pending Santyl Order For Wound Care) This patient goldman... PRN PRN XX WOUND CARE; Start 05/09/18 at 17:00 Heparin Sodium (Porcine) (Heparin (1000 Units/ml)) 2,800 unit AFTER DIALYSIS CATHETER Last administered on 05/29/18 18:24; Admin Dose 2,800 UNIT; Start 05/16/18 at 16:30 Epoetin Zen-epbx (RETACRIT(esrd)) 20,000 unit Tu@1700 SC Last administered on 06/09/18 17:11; Admin Dose 20,000 UNIT; Start 05/19/18 at 17:00 Spironolactone (Aldactone) 50 mg DAILY GTB Last administered on 06/15/18 09:38; Admin Dose 50 MG; Start 05/21/18 at 09:00 Famotidine (Pepcid) 20 mg DAILY PEG Last administered on 06/15/18 09:38; Admin Dose 20 MG; Start 05/23/18 at 09:00 Morphine Sulfate (morphine) 6 mg Q4H PRN PEG SEVERE PAIN LEVEL 7-10 Last administered on 06/15/18 15:25; Admin Dose 6 MG; Start 05/22/18 at 17:00 Albumin Human 100 ml @ 100 mls/hr DURING DIALYSIS PRN IV hypotension on hd Last administered on 05/29/18 14:49; Admin Dose 100 MLS/HR; Start 05/27/18 at 07:30 Cholestyramine Resin (Questran Light) 4 gm 0600,1200,1800,2300 PO Last administered on 06/16/18 06:14; Admin Dose 4 GM; Start 05/27/18 at 18:00 Lorazepam (Ativan) 0.5 mg Q4H PRN IV ANXIETY; Start 05/30/18 at 12:00 Acetaminophen (Tylenol Tab) 650 mg Q4H PRN PO MILD PAIN(1-3)OR ELEVATED TEMP Last administered on 06/10/18 21:44; Admin Dose 650 MG; Start 05/31/18 at 13:00 Metoclopramide HCl (Reglan) 5 mg Q6 IV Last administered on 06/16/18 06:13; Admin Dose 5 MG; Start 05/31/18 at 13:00 Collagenase (Santyl) 1 applic DAILY TOP Last administered on 06/15/18 09:37; Admin Dose 1 APPLIC; Start 06/01/18 at 09:00 Clonidine (Catapres) 0.1 mg Q6H PRN PO ELEVATED BLOOD PRESSURE Last administered on 06/11/18 06:24; Admin Dose 0.1 MG; Start 06/03/18 at 03:30 Citric Acid/ Sodium Citrate (Bicitra) 30 ml TID PO Last administered on 06/15/18 22:56; Admin Dose 30 ML; Start 06/06/18 at 13:00 Metoprolol Tartrate (Lopressor) 75 mg Q8 GTB Last administered on 06/16/18 06:13; Admin Dose 75 MG; Start 06/08/18 at 14:00 Bumetanide (Bumex) 1 mg BID DIURETICS GTB Last administered on 06/16/18 06:14; Admin Dose 1 MG; Start 06/11/18 at 18:00 Amiodarone HCl (Cordarone) 200 mg Q12 PO Last administered on 06/15/18 23:04; Admin Dose 200 MG; Start 06/12/18 at 21:00 Collagenase (Santyl) 1 applic PRN PRN TOP WHEN SOILED; Start 06/13/18 at 01:00 Nystatin (Nystatin Powder) 1 applic BID TOP Last administered on 06/15/18 23:05; Admin Dose 1 APPLIC; Start 06/13/18 at 14:00 Vancomycin HCl (Vancomycin Oral Syringe) 250 mg BID GTB Last administered on 06/15/18 21:00; Admin Dose 250 MG; Start 06/15/18 at 09:00; Stop 06/22/18 at 08:59 Vancomycin HCl (Vancomycin Oral Syringe) 250 mg DAILY GTB ; Start 06/22/18 at 09:00; Stop 06/29/18 at 08:59 Vancomycin HCl (Vancomycin Oral Syringe) 250 mg Q48H GTB ; Start 06/29/18 at 14:00; Stop 07/06/18 at 13:59 KERON MORAN Jun 16, 2018 06:21
--- NOTE | 2018-06-16 08:03 | CONS ---
Assessment/Plan Assessment/Plan Hospital Course (Demo Recall) 73 yo female Interval hx: Pt alert. Is having abdominal pain, tender to palpitation. 1. ABD pain -CT of abd 2. Renal failure.- on HD 3. Vent dependent resp failure 4. Chronic obstructive pulmonary disease. 5. Bipolar. 6. Paroxysmal atrial fibrillation. 7. Anemia of chronic disease. 8. CHF 9. Diarrhea 11. Diarrhea -s/p c diff colitis -taper off of vanco 12. H/O deep esophageal ulcer 13. Dysphagia with g tube 14. Anemia of chronic disease 15. UTI with positive cx CT of abd/pelvis 06/16 1. Nonspecific bibasilar ground-glass densities and the airspace disease, suggesting bilateral pneumonia versus pulmonary edema. 2. Atrophy of the left kidney. 2.3 cm left renal cyst. The right kidney demonstrates compensatory hypertrophy. No calculus or hydronephrosis in either kidney. 3. Atherosclerosis of the aorta. 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 No leak or rupture. 4. Mild nonspecific ascites in the pelvis. 5. Air-fluid levels are seen throughout the small bowel and colon. Consider mild ileus versus enterocolitis. PLAN: Ok to resume tube feeds Continue with reglan and pepcid Taper vanco to off Monitor tube feeds residuals q 6 hours Pt examined and plan of care discussed with Dr Carolina Consultation Date/Type/Reason Admit Date/Time May 06, 2018 at 17:38 Initial Consult Date 05/10/18 Requesting Provider: ROLAND GIRON MD Date/Time of Note DATE: 06/16/18 TIME: 07:58 Exam/Review of Systems Exam Vitals Vital Signs Date Temp Pulse Resp B/P (MAP) Pulse Ox O2 O2 Flow FiO2 Time Delivery Rate 06/16/18 98.3 96 20 104/66 99 07:14 (79) 06/16/18 30 04:45 06/13/18 Trach 16:10 Collar Intake and Output 06/15/18 06/15/18 06/16/18 1515:00 23:00 07:00 IntakeIntake Total 320 ml OutputOutput Total 120 ml 750 ml 500 ml BalanceBalance 200 ml -750 ml -500 ml Constitutional: alert, oriented Psych: no complaints Head: normocephalic Eyes: nl sclera, PERRL ENMT: other (trach, lips dry) Respiratory: clear to auscultation, diminished breath sounds Cardiovascular: regular rate and rhythm Gastrointestinal: soft, tender (in all quadrants) Neurological: nl mental status Results Result Diagram: 06/15/1861006/15/18610 Results 24hrs Laboratory Tests Test 06/15/18 15:25 Urine Color YELLOW Urine Clarity TURBID A Urine pH 6.0 Urine Specific [place] 1.012 Urine Ketones NEGATIVE Urine Nitrite POSITIVE A Urine Bilirubin NEGATIVE Urine Urobilinogen NEGATIVE Urine Leukocyte Esterase 2+ H Urine Microscopic RBC 48 H Urine Microscopic WBC > 182 H Urine Transitional Epithelial Cells MODERATE Urine Bacteria MANY A Urine Hyaline Casts MODERATE Urine Mucus FEW A Urine Hemoglobin 2+ H Urine Glucose NEGATIVE Urine Total Protein 1+ H Medications Medication Current Medications IV Flush (NS 10 ml) 10 ml PRN IV ; Start 05/06/18 at 20:30 Ascorbic Acid (Vitamin C) 500 mg DAILY GTB Last administered on 06/15/18at 09:38; Admin Dose 500 MG; Start 05/07/18 at 09:00 Albuterol/ Ipratropium (Duoneb) 3 ml Q2H RESP THERAPY PRN HHN SHORTNESS OF BREATH; Start 05/06/18 at 23:30 Zinc Sulfate (Zinc Sulfate) 220 mg DAILY GTB Last administered on 06/15/18at 09:37; Admin Dose 220 MG; Start 05/07/18 at 09:00 Ondansetron HCl (Zofran Tab) 4 mg Q6H PRN GTB NAUSEA AND/OR VOMITING Last administered on 05/31/18at 16:47; Admin Dose 4 MG; Start 05/07/18 at 00:15 Multivitamins (Multivitamin) 30 ml DAILY GTB Last administered on 06/15/18at 09:37; Admin Dose 30 ML; Start 05/07/18 at 09:00 Miscellaneous Information (Pending [facility] Order For Wound Care) This patient goldman... PRN PRN XX WOUND CARE; Start 05/09/18 at 17:00 Heparin Sodium (Porcine) (Heparin (1000 Units/ml)) 2,800 unit AFTER DIALYSIS CATHETER Last administered on 05/29/18at 18:24; Admin Dose 2,800 UNIT; Start 05/16/18 at 16:30 Epoetin Zen-epbx (RETACRIT(esrd)) 20,000 unit Tu@1700 SC Last administered on 06/09/18 17:11; Admin Dose 20,000 UNIT; Start 05/19/18 at 17:00 Spironolactone (Aldactone) 50 mg DAILY GTB Last administered on 06/15/18 09:38; Admin Dose 50 MG; Start 05/21/18 at 09:00 Famotidine (Pepcid) 20 mg DAILY PEG Last administered on 06/15/18 09:38; Admin Dose 20 MG; Start 05/23/18 at 09:00 Morphine Sulfate (morphine) 6 mg Q4H PRN PEG SEVERE PAIN LEVEL 7-10 Last administered on 06/15/18 15:25; Admin Dose 6 MG; Start 05/22/18 at 17:00 Albumin Human 100 ml @ 100 mls/hr DURING DIALYSIS PRN IV hypotension on hd Last administered on 05/29/18 14:49; Admin Dose 100 MLS/HR; Start 05/27/18 at 07:30 Cholestyramine Resin (Questran Light) 4 gm 0600,1200,1800,2300 PO Last administered on 06/16/18 06:14; Admin Dose 4 GM; Start 05/27/18 at 18:00 Lorazepam (Ativan) 0.5 mg Q4H PRN IV ANXIETY; Start 05/30/18 at 12:00 Acetaminophen (Tylenol Tab) 650 mg Q4H PRN PO MILD PAIN(1-3)OR ELEVATED TEMP Last administered on 06/10/18 21:44; Admin Dose 650 MG; Start 05/31/18 at 13:00 Metoclopramide HCl (Reglan) 5 mg Q6 IV Last administered on 06/16/18 06:13; Admin Dose 5 MG; Start 05/31/18 at 13:00 Collagenase (Santyl) 1 applic DAILY TOP Last administered on 06/15/18 09:37; Admin Dose 1 APPLIC; Start 06/01/18 at 09:00 Clonidine (Catapres) 0.1 mg Q6H PRN PO ELEVATED BLOOD PRESSURE Last administered on 06/11/18 06:24; Admin Dose 0.1 MG; Start 06/03/18 at 03:30 Citric Acid/ Sodium Citrate (Bicitra) 30 ml TID PO Last administered on 06/15/18 22:56; Admin Dose 30 ML; Start 06/06/18 at 13:00 Metoprolol Tartrate (Lopressor) 75 mg Q8 GTB Last administered on 06/16/18 06:13; Admin Dose 75 MG; Start 06/08/18 at 14:00 Bumetanide (Bumex) 1 mg BID DIURETICS GTB Last administered on 06/16/18 06:14; Admin Dose 1 MG; Start 06/11/18 at 18:00 Amiodarone HCl (Cordarone) 200 mg Q12 PO Last administered on 06/15/18at 23:04; Admin Dose 200 MG; Start 06/12/18 at 21:00 Collagenase (Santyl) 1 applic PRN PRN TOP WHEN SOILED; Start 06/13/18 at 01:00 Nystatin (Nystatin Powder) 1 applic BID TOP Last administered on 06/15/18at 23:05; Admin Dose 1 APPLIC; Start 06/13/18 at 14:00 Vancomycin HCl (Vancomycin Oral Syringe) 250 mg BID GTB Last administered on 06/15/18at 21:00; Admin Dose 250 MG; Start 06/15/18 at 09:00; Stop 06/22/18 at 08:59 Vancomycin HCl (Vancomycin Oral Syringe) 250 mg DAILY GTB ; Start 06/22/18 at 09:00; Stop 06/29/18 at 08:59 Vancomycin HCl (Vancomycin Oral Syringe) 250 mg Q48H GTB ; Start 06/29/18 at 14:00; Stop 07/06/18 at 13:59 SHAHEEN GAMBOA Jun 16, 2018 08:03
[2018-06-16] MEDS ORDERED: METOLAZONE 5 MG TAB PO ONE (09:00)
[2018-06-16] MEDS: NYSTATIN 30 GM POWDER BTL TOP SCH ×3 (09:00→21:11)
[2018-06-16] MEDS: VANCOMYCIN HCL 250 MG/5ML POSYG GTB SCH ×2 (09:13→20:13)
[2018-06-16] MEDS: AMIODARONE 200 MG TAB PO SCH ×2 (09:14→21:09)
[2018-06-16] MEDS: ASCORBIC ACID 500 MG TAB GTB SCH (09:14)
[2018-06-16] MEDS: SPIRONOLACTONE 25 MG TAB GTB SCH (09:14)
[2018-06-16] MEDS: COLLAGENASE 5 GM (UD JAR) TOP SCH (09:15)
[2018-06-16] MEDS: ZINC SULFATE 220 MG CAP GTB SCH (09:15)
[2018-06-16] MEDS: FAMOTIDINE 20 MG TAB PEG SCH (09:15)
[2018-06-16] MEDS: MULTIVITAMINS 30 ML CUP GTB SCH (09:15)
[2018-06-16] MEDS: CITRIC ACID/NA CITRATE 30 ML CUP PO SCH ×3 (09:16→20:14)
[2018-06-16] MEDS: BALSAM PERU/CASTOR OIL 60 GM TUBE TOP SCH ×2 (09:16→20:15)
--- NOTE | 2018-06-16 09:31 | PN ---
DATE: 06/16/2018 SUBJECTIVE: The patient is stable, no events overnight. No fevers, chills, nausea, vomiting. OBJECTIVE: VITAL SIGNS: Blood pressure is 104/66, respiratory rate 20, pulse 96, temperature 98.3. HEENT: Head is normocephalic. NECK: Supple. HEART: Regular rate. LUNGS: Show diminished breath sounds at the base. ABDOMEN: Soft, nontender to palpation without rebound or guarding. EXTREMITIES: Negative for clubbing, cyanosis. Positive edema. DERMATOLOGIC: No rashes. MUSCULOSKELETAL: No joint effusions. NEUROLOGIC: No change in exam. MEDICATIONS: Reviewed. LABORATORY DATA: Has been reviewed. ASSESSMENT AND PLAN: 1. Nonoliguric acute kidney injury on top of chronic kidney disease stage IIIB/IV. CBC 7, creatinin e 2.0 mg/dL. Etiology of acute kidney injury is secondary to acute tubular necrosis. The patient is status post hemodialysis. Renal function stabilized. Continue current treatment plan. 2. Volume overload, improving. Continue Lasix. Will give intermittent metolazone. 3. Hypernatremia, improved. Continue free water flushes. 4. Hypokalemia, improved. 5. Metabolic acidosis. Continue Bicitra. 6. Anemia. Monitor hemoglobin and hematocrit levels. 7. Mineral bone disorder, monitor calcium and phosphorus levels. 8. Ventilatory dependent respiratory failure. Vent settings and ABG was reviewed. Continue to [facility]. 9. Sepsis status post shock. The patient is completing antibiotic course. 10. Dysphagia. Continue tube feeding. 11. Acute encephalopathy. 12. Lower extremity wounds. Continue wound care. Dictated By: JEANA BANSAL DO NR/NTS Conf#: [id number] DID#: [id number] CC: ROLAND GIRON MD;*EndCC*
--- NOTE | 2018-06-16 10:58 | CONS ---
Assessment/Plan Assessment/Plan Assessment/Plan (Daily) Ventilator setting; AC of 20, tidal volume 500, PEEP of 5, 30% FiO2. CT abdomen was reviewed from yesterday which is showing possible mild ileus. Assessment and recommendations; 1. Patient initially admitted for severe bilateral pneumonia with history of recent tracheostomy decannulation requiring redo tracheostomy because of failure to be weaned off from invasive mechanical ventilation. 2. Chronic atrial fibrillation. 3. C. difficile colitis. 4. Anemia. 5. Possible small bowel ileus. 6. Critical illness neuropathy/myopathy. 7. Renal failure, now hemodialysis dependent. Continue current supportive care. Prognosis is poor. Consultation Date/Type/Reason Admit Date/Time May 06, 2018 at 17:38 Initial Consult Date 05/10/18 Type of Consult Pulmonary/critical care Requesting Provider: ROLAND GIRON MD Date/Time of Note DATE: 06/16/18 TIME: 10:56 24 HR Interval Summary Free Text/Dictation Patient's condition is stable. Denies any further abdominal pain. General exam; elderly woman, on ventilator via tracheostomy, awake and alert. Currently in no distress. Exam/Review of Systems Exam Vitals Vital Signs Date Temp Pulse Resp B/P (MAP) Pulse Ox O2 O2 Flow FiO2 Time Delivery Rate 06/16/18 98.3 96 20 104/66 99 07:14 (79) 06/16/18 30 04:45 06/13/18 Trach 16:10 Collar Intake and Output 06/15/18 06/15/18 06/16/18 1414:59 22:59 06:59 IntakeIntake Total 320 ml OutputOutput Total 120 ml 750 ml 500 ml BalanceBalance 200 ml -750 ml -500 ml Exam H ENT exam; supple neck, no JVD. No lymphadenopathy. Midline trachea. No thyromegaly. Tracheostomy in place. Chest exam; diminished breath sounds bilaterally. S1-S2 audible, no murmurs. Irregular rhythm. Abdomen exam; soft, G-tube in place. Bowel sounds audible. No organomegaly. Extremity exam; no peripheral edema or clubbing. Patient does have patchy ecchymosis. FITNESS SPECIALIST exam; patient awake exhibiting no focal motor deficit. Results Result Diagram: 06/16/18 0806 06/16/18 0806 Results 24hrs Laboratory Tests Test 06/15/18 15:25 06/16/18 08:06 Urine Color YELLOW Urine Clarity TURBID A Urine pH 6.0 Urine Specific [place] 1.012 Urine Ketones NEGATIVE Urine Nitrite POSITIVE A Urine Bilirubin NEGATIVE Urine Urobilinogen NEGATIVE Urine Leukocyte Esterase 2+ H Urine Microscopic RBC 48 H Urine Microscopic WBC > 182 H Urine Transitional Epithelial Cells MODERATE Urine Bacteria MANY A Urine Hyaline Casts MODERATE Urine Mucus FEW A Urine Hemoglobin 2+ H Urine Glucose NEGATIVE Urine Total Protein 1+ H White Blood Count 11.6 H Red Blood Count 2.37 L Hemoglobin 7.8 L Hematocrit 26.1 L Mean Corpuscular Volume 110.1 H Mean Corpuscular Hemoglobin 32.9 Mean Corpuscular Hemoglobin Concent 29.9 L Red Cell Distribution Width 24.7 H Platelet Count 295 Mean Platelet Volume 10.2 Immature Granulocytes % 0.900 H Neutrophils % 83.4 H Lymphocytes % 8.4 L Monocytes % 4.3 Eosinophils % 2.8 Basophils % 0.2 Nucleated Red Blood Cells % 0.0 Immature Granulocytes # 0.110 H Neutrophils # 9.7 H Lymphocytes # 1.0 Monocytes # 0.5 Eosinophils # 0.3 Basophils # 0.0 Nucleated Red Blood Cells # 0.0 Sodium Level 141 Potassium Level 3.8 Chloride Level 107 Carbon Dioxide Level 24 Anion Gap 10 Blood Urea Nitrogen 65 H Creatinine 1.85 H Est Glomerular Filtrat Rate mL/min Glucose Level 77 Calcium Level 9.5 Medications Medication Current Medications IV Flush (NS 10 ml) 10 ml PRN IV ; Start 05/06/18 at 20:30 Ascorbic Acid (Vitamin C) 500 mg DAILY GTB Last administered on 06/16/18at 09:14; Admin Dose 500 MG; Start 05/07/18 at 09:00 Albuterol/ Ipratropium (Duoneb) 3 ml Q2H RESP THERAPY PRN HHN SHORTNESS OF BREATH; Start 05/06/18 at 23:30 Zinc Sulfate (Zinc Sulfate) 220 mg DAILY GTB Last administered on 06/16/18at 09:15; Admin Dose 220 MG; Start 05/07/18 at 09:00 Ondansetron HCl (Zofran Tab) 4 mg Q6H PRN GTB NAUSEA AND/OR VOMITING Last administered on 05/31/18at 16:47; Admin Dose 4 MG; Start 05/07/18 at 00:15 Multivitamins (Multivitamin) 30 ml DAILY GTB Last administered on 06/16/18 09:15; Admin Dose 30 ML; Start 05/07/18 at 09:00 Miscellaneous Information (Pending Santyl Order For Wound Care) This patient goldman... PRN PRN XX WOUND CARE; Start 05/09/18 at 17:00 Heparin Sodium (Porcine) (Heparin (1000 Units/ml)) 2,800 unit AFTER DIALYSIS CATHETER Last administered on 05/29/18 18:24; Admin Dose 2,800 UNIT; Start 05/16/18 at 16:30 Spironolactone (Aldactone) 50 mg DAILY GTB Last administered on 06/16/18 09:14; Admin Dose 50 MG; Start 05/21/18 at 09:00 Famotidine (Pepcid) 20 mg DAILY PEG Last administered on 06/16/18 09:15; Admin Dose 20 MG; Start 05/23/18 at 09:00 Morphine Sulfate (morphine) 6 mg Q4H PRN PEG SEVERE PAIN LEVEL 7-10 Last administered on 06/15/18 15:25; Admin Dose 6 MG; Start 05/22/18 at 17:00 Albumin Human 100 ml @ 100 mls/hr DURING DIALYSIS PRN IV hypotension on hd Last administered on 05/29/18 14:49; Admin Dose 100 MLS/HR; Start 05/27/18 at 07:30 Cholestyramine Resin (Questran Light) 4 gm 0600,1200,1800,2300 PO Last administered on 06/16/18 06:14; Admin Dose 4 GM; Start 05/27/18 at 18:00 Lorazepam (Ativan) 0.5 mg Q4H PRN IV ANXIETY; Start 05/30/18 at 12:00 Acetaminophen (Tylenol Tab) 650 mg Q4H PRN PO MILD PAIN(1-3)OR ELEVATED TEMP Last administered on 06/10/18 21:44; Admin Dose 650 MG; Start 05/31/18 at 13:00 Metoclopramide HCl (Reglan) 5 mg Q6 IV Last administered on 06/16/18 06:13; Admin Dose 5 MG; Start 05/31/18 at 13:00 Collagenase (Santyl) 1 applic DAILY TOP Last administered on 06/16/18 09:15; Admin Dose 1 APPLIC; Start 06/01/18 at 09:00 Clonidine (Catapres) 0.1 mg Q6H PRN PO ELEVATED BLOOD PRESSURE Last administered on 06/11/18 06:24; Admin Dose 0.1 MG; Start 06/03/18 at 03:30 Citric Acid/ Sodium Citrate (Bicitra) 30 ml TID PO Last administered on 06/16/18 09:16; Admin Dose 30 ML; Start 06/06/18 at 13:00 Metoprolol Tartrate (Lopressor) 75 mg Q8 GTB Last administered on 06/16/18at 06:13; Admin Dose 75 MG; Start 06/08/18 at 14:00 Bumetanide (Bumex) 1 mg BID DIURETICS GTB Last administered on 06/16/18 06:14; Admin Dose 1 MG; Start 06/11/18 at 18:00 Amiodarone HCl (Cordarone) 200 mg Q12 PO Last administered on 06/16/18 09:14; Admin Dose 200 MG; Start 06/12/18 at 21:00 Collagenase (Santyl) 1 applic PRN PRN TOP WHEN SOILED; Start 06/13/18 at 01:00 Nystatin (Nystatin Powder) 1 applic BID TOP Last administered on 06/15/18at 23:05; Admin Dose 1 APPLIC; Start 06/13/18 at 14:00 Vancomycin HCl (Vancomycin Oral Syringe) 250 mg BID GTB Last administered on 06/16/18at 09:13; Admin Dose 250 MG; Start 06/15/18 at 09:00; Stop 06/22/18 at 08:59 Vancomycin HCl (Vancomycin Oral Syringe) 250 mg DAILY GTB ; Start 06/22/18 at 09:00; Stop 06/29/18 at 08:59 Vancomycin HCl (Vancomycin Oral Syringe) 250 mg Q48H GTB ; Start 06/29/18 at 14:00; Stop 07/06/18 at 13:59 Epoetin Zen-epbx (RETACRIT(esrd)) 20,000 unit Tu@1700 SC ; Start 06/23/18 at 17:00 Epoetin Zen (Epogen (Esrd)) 20,000 units Tu@1700 SC ; Start 06/16/18 at 17:00; Stop 06/16/18 at 17:01 ELOISA LAURA Jun 16, 2018 10:58
--- NOTE | 2018-06-16 13:29 | CONS ---
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 colonization of the airway by pseudomonas and ESBL+klebsiella - h/o possible, recurrent HCAP due to pseudomonas and ESBL+klebsiella - h/o recurrent HCAP due to MRSA and Enterobacter (culture of tracheal aspirate on 07/16/2017 that was collected at [facility]) . Pt took vancomycin and ceftazidime - h/o decannulation prior to admission - h/o tracheostomy on 06/11/2017 - h/o SIRS from UGIB in 2018 - h/o thoracentesis on 07/18/2017, transudative (protein <2, LDH 279) - h/o bleeding from the trach site in 2018 - h/o septic shock due to pneumonia, ARDS, bacteremia, fungemia in 2018 - h/o ARDS in 2018 - h/o smoking - COPD - h/o ILD per medical record - h/o PAF, improved # GI - possible ileus or enterocolitis on CT abd/pel 06/15/2018 - C diff colitis, diagnosed on 05/11/2018. IV metronidazole (05/11/2018-05/29/2018; restart 05/30/2018-06/05/18), pGT vancomycin induction followed by taper (05/11/2018-) - h/o intermittent diarrhea, Pt had multiple negative C. diff tests at [facility] at OSH in the past; none was positive until 05/11/2018 - dysphagia - h/o PEG placement 06/13/2018 - protein calorie malnutrition - h/o coffee ground emesis/UGIB on 12/23/2017 due to deep ulceration of distal esophagus and gastritis on EGD 12/26/2017. No e/o H. pylori - h/o possible appendicitis on CT on 11/22/2017, Pt took ertapenem (11/24/2017- 12/01/2017) - h/o extensive adhesions lower abdominal and pelvis between small bowel to each other and to colon and to abdominal wall, anterior pelvic wall chronic abscess secondary to probably an old perforated diverticulitis, torsion of small bowel a round these dense adhesion causing multiple obstructive points - h/o laparoscopic exploration and extensive lysis of adhesions and drainage of anterior pelvic wall abscess 09/16/2017. Cultures were negative, no e/o malignancy. Pt took pip/tazo (09/16/2017-09/26/2017) - h/o EGD and exchange of PEG on 09/01/2017 - h/o partial obstruction mid jejunum in L anterior central pelvis with suggestion of a 3 cm soft tissue mass on CT 08/28/2017 - h/o internal stomal deep ulcer behind the internal bumper, gastritis and esophagitis, Rodriguez's cannot be ruled out, per EGD with biopsy 07/23/2017 - h/o GIB s/p flex sig showed polyp; stool OB negative on 06/29/17 - h/o stool OB positive status - h/o SBO and ileus due to pain meds - h/o mildly elevated CEA # renal/ - recurrent UTI - UTI due to pseudomonas and ESBL+klebsiella on 06/09/2018, Pt took one dose of fosfomycin on 06/10/2018 and cipro 06/12-06/15/2018 - anasarca - started on HD on 05/15/2018, via Juan in R groin - recurrent NATHAN on CKD - 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 Her strain of CRE was sensitive to colistin, Avycaz, and Vabomere but resistant to Zerbaxa (reported on 05/19/2018) - Hyponatremia - Hyperkalemia, now hypokalemia - Metabolic acidosis - adrenal insufficiency - h/o vaginal bleed in 2018 - h/o colonization of urinary tract by ESBL+klebsiella, VRE - h/o recurrent, symptomatic UTI due to carbapenem-resistant kleb (MDR strain) per urine culture 10/04/17, 10/09/17, 10/21/2017, P took colistin (10/09/2017- 10/15/2017), fosfomycin for carbapenemase-producing klebsiella and VRE on 10/25/2017 and 10/28/2017 - h/o funguria - h/o urinary retention # fungemia, bacteremia 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; Pt declined surgery for MVR per outside medical records; TTE 07/01/17 did not mention any thrombus; s/p voriconazole (05/25/2017-08/01/2017) - h/o bacteremia due to MSSA and proteus s/p ceftriaxone; repeat blood cultures were negative on 06/14/2017 # musculoskeletal and dermatological - L hand pain - dry skin - chronic wound of LLE - h/o infection of wound of LLE - h/o debridement of wound of LLE on 08/06/2017 - h/o recurrent herpes labialis, Pt took acyclovir, valacyclovir - h/o Osler's nodes (eschar) of R toes with erythematous skin; desquamation of the skin and open lacerations on R plantar foot. improved. Probable manifestation of endocarditis. Pt declined MRI on 08/06/2017 - h/o infection of R toes due to pseudomonas. coagulase negative Staph likely a colonizer - h/o intertrigo of the groin, resolved with nystatin powder - h/o scabies, locally crusted lesion over L scapula, s/p permethrin cream and pGT ivermectin on 08/11/2017, 08/12/2017, 08/19/2017. Repeat skin scraping on 08/21/2017 was negative for scabies # psych, neuro - decreased hearing b/l - s/p acute toxic metabolic encephalopathy - h/o critical illness polyneuropathy - anxiety/depression, bipolar d/o, seen by Psychiatry in the past - chronic pain syndrome - h/o medical non-compliance: she would refuse her medications, treatment and straight catheterization in 2018 # hematological, vascular - chronic anemia requiring blood transfusion intermittently - macrocytic anemia - aneurysmal dilatation of the distal aorta visualized on CT 06/15/2018 - PVD recommendations: - pending result: urine culture - start renally dosed cefepime while waiting for the urine culture result from 06/15/2048 - continue pGT vancomycin taper: 06/15/2018-06/21/2018 bid, 06/22-06/28: daily, 06/29- 07/05: q48hrs management d/w Pt's Consultation Date/Type/Reason Admit Date/Time May 06, 2018 at 17:38 Initial Consult Date 05/10/18 Type of Consult ID Requesting Provider: ROLAND GIRON MD Date/Time of Note DATE: 06/16/18 TIME: 13:22 24 HR Interval Summary Subjective hx not possible: pt non-verbal, pt critical Constitutional: no complaints Detailed Summary Eyes: no complaints Respiratory: No shortness of breath Cardiovascular: No no complaints Gastrointestinal: constipation ("today it is OK"), other Genitourinary: other (FC) Musculoskeletal: restricted range of motion Skin: no complaints Neurologic: no complaints Exam/Review of Systems Exam Vitals Vital Signs Date Temp Pulse Resp B/P (MAP) Pulse Ox O2 O2 Flow FiO2 Time Delivery Rate 06/16/18 98.0 78 20 157/70 100 11:17 (99) 06/16/18 30 11:14 06/13/18 Trach 16:10 Collar Intake and Output 06/15/18 06/15/18 06/16/18 1515:00 23:00 07:00 IntakeIntake Total 320 ml OutputOutput Total 120 ml 750 ml 500 ml BalanceBalance 200 ml -750 ml -500 ml Constitutional: non-verbal, frail Psych: confusion Head: normocephalic, atraumatic Eyes: nl conjunctiva, nl lids, nl sclera ENMT: nl external ears & nose, other (dry mucus membranes) Neck: other (trach) Respiratory: crackles/rales Cardiovascular: regular rate and rhythm, nl pulses Gastrointestinal: soft, non-tender Genitourinary - Female: other (FC, no supra-pubic tenderness) Musculoskeletal: range of motion (limited) Extremities: No edema Neurological: BANQUET BARTENDER II-XII intact, nl mental status Skin: nl turgor Results Result Diagram: 06/16/18 0806 06/16/18 0806 Results 24hrs Laboratory Tests Test 06/15/18 15:25 06/16/18 08:06 Urine Color YELLOW Urine Clarity TURBID A Urine pH 6.0 Urine Specific [place] 1.012 Urine Ketones NEGATIVE Urine Nitrite POSITIVE A Urine Bilirubin NEGATIVE Urine Urobilinogen NEGATIVE Urine Leukocyte Esterase 2+ H Urine Microscopic RBC 48 H Urine Microscopic WBC > 182 H Urine Transitional Epithelial Cells MODERATE Urine Bacteria MANY A Urine Hyaline Casts MODERATE Urine Mucus FEW A Urine Hemoglobin 2+ H Urine Glucose NEGATIVE Urine Total Protein 1+ H White Blood Count 11.6 H Red Blood Count 2.37 L Hemoglobin 7.8 L Hematocrit 26.1 L Mean Corpuscular Volume 110.1 H Mean Corpuscular Hemoglobin 32.9 Mean Corpuscular Hemoglobin Concent 29.9 L Red Cell Distribution Width 24.7 H Platelet Count 295 Mean Platelet Volume 10.2 Immature Granulocytes % 0.900 H Neutrophils % 83.4 H Lymphocytes % 8.4 L Monocytes % 4.3 Eosinophils % 2.8 Basophils % 0.2 Nucleated Red Blood Cells % 0.0 Immature Granulocytes # 0.110 H Neutrophils # 9.7 H Lymphocytes # 1.0 Monocytes # 0.5 Eosinophils # 0.3 Basophils # 0.0 Nucleated Red Blood Cells # 0.0 Sodium Level 141 Potassium Level 3.8 Chloride Level 107 Carbon Dioxide Level 24 Anion Gap 10 Blood Urea Nitrogen 65 H Creatinine 1.85 H Est Glomerular Filtrat Rate mL/min Glucose Level 77 Calcium Level 9.5 Medications Medication Current Medications IV Flush (NS 10 ml) 10 ml PRN IV ; Start 05/06/18 at 20:30 Ascorbic Acid (Vitamin C) 500 mg DAILY GTB Last administered on 06/16/18 09:14; Admin Dose 500 MG; Start 05/07/18 at 09:00 Albuterol/ Ipratropium (Duoneb) 3 ml Q2H RESP THERAPY PRN HHN SHORTNESS OF BREATH; Start 05/06/18 at 23:30 Zinc Sulfate (Zinc Sulfate) 220 mg DAILY GTB Last administered on 06/16/18 09:15; Admin Dose 220 MG; Start 05/07/18 at 09:00 Ondansetron HCl (Zofran Tab) 4 mg Q6H PRN GTB NAUSEA AND/OR VOMITING Last administered on 05/31/18 16:47; Admin Dose 4 MG; Start 05/07/18 at 00:15 Multivitamins (Multivitamin) 30 ml DAILY GTB Last administered on 06/16/18 09:15; Admin Dose 30 ML; Start 05/07/18 at 09:00 Miscellaneous Information (Pending Santyl Order For Wound Care) This patient goldman... PRN PRN XX WOUND CARE; Start 05/09/18 at 17:00 Heparin Sodium (Porcine) (Heparin (1000 Units/ml)) 2,800 unit AFTER DIALYSIS CATHETER Last administered on 05/29/18 18:24; Admin Dose 2,800 UNIT; Start 05/16/18 at 16:30 Spironolactone (Aldactone) 50 mg DAILY GTB Last administered on 06/16/18 09:14; Admin Dose 50 MG; Start 05/21/18 at 09:00 Famotidine (Pepcid) 20 mg DAILY PEG Last administered on 06/16/18 09:15; Admin Dose 20 MG; Start 05/23/18 at 09:00 Morphine Sulfate (morphine) 6 mg Q4H PRN PEG SEVERE PAIN LEVEL 7-10 Last administered on 06/15/18 15:25; Admin Dose 6 MG; Start 05/22/18 at 17:00 Albumin Human 100 ml @ 100 mls/hr DURING DIALYSIS PRN IV hypotension on hd Last administered on 05/29/18 14:49; Admin Dose 100 MLS/HR; Start 05/27/18 at 07:30 Cholestyramine Resin (Questran Light) 4 gm 0600,1200,1800,2300 PO Last administered on 06/16/18 12:39; Admin Dose 4 GM; Start 05/27/18 at 18:00 Lorazepam (Ativan) 0.5 mg Q4H PRN IV ANXIETY; Start 05/30/18 at 12:00 Acetaminophen (Tylenol Tab) 650 mg Q4H PRN PO MILD PAIN(1-3)OR ELEVATED TEMP Last administered on 06/10/18 21:44; Admin Dose 650 MG; Start 05/31/18 at 13:00 Metoclopramide HCl (Reglan) 5 mg Q6 IV Last administered on 06/16/18 12:39; Admin Dose 5 MG; Start 05/31/18 at 13:00 Collagenase (Santyl) 1 applic DAILY TOP Last administered on 06/16/18 09:15; Admin Dose 1 APPLIC; Start 06/01/18 at 09:00 Clonidine (Catapres) 0.1 mg Q6H PRN PO ELEVATED BLOOD PRESSURE Last administered on 06/11/18 06:24; Admin Dose 0.1 MG; Start 06/03/18 at 03:30 Citric Acid/ Sodium Citrate (Bicitra) 30 ml TID PO Last administered on 06/16/18 12:39; Admin Dose 30 ML; Start 06/06/18 at 13:00 Metoprolol Tartrate (Lopressor) 75 mg Q8 GTB Last administered on 06/16/18 06:13; Admin Dose 75 MG; Start 06/08/18 at 14:00 Bumetanide (Bumex) 1 mg BID DIURETICS GTB Last administered on 06/16/18 06:14; Admin Dose 1 MG; Start 06/11/18 at 18:00 Amiodarone HCl (Cordarone) 200 mg Q12 PO Last administered on 06/16/18 09:14; Admin Dose 200 MG; Start 06/12/18 at 21:00 Collagenase (Santyl) 1 applic PRN PRN TOP WHEN SOILED; Start 06/13/18 at 01:00 Nystatin (Nystatin Powder) 1 applic BID TOP Last administered on 06/16/18 12:40; Admin Dose 1 APPLIC; Start 06/13/18 at 14:00 Vancomycin HCl (Vancomycin Oral Syringe) 250 mg BID GTB Last administered on 06/16/18 09:13; Admin Dose 250 MG; Start 06/15/18 at 09:00; Stop 06/22/18 at 08:59 Vancomycin HCl (Vancomycin Oral Syringe) 250 mg DAILY GTB ; Start 06/22/18 at 0 9:00; Stop 06/29/18 at 08:59 Vancomycin HCl (Vancomycin Oral Syringe) 250 mg Q48H GTB ; Start 06/29/18 at 14:00; Stop 07/06/18 at 13:59 Epoetin Zen-epbx (RETACRIT(esrd)) 20,000 unit Tu@1700 SC ; Start 06/23/18 at 17:00 Epoetin Zen (Epogen (Esrd)) 20,000 units Tu@1700 SC ; Start 06/16/18 at 17:00; Stop 06/16/18 at 17:01 CELESTINE MURPHY M.D. Jun 16, 2018 13:29
[2018-06-16] MEDS ORDERED: CEFEPIME 1GM/50 ML (PMX) 50 ML IVPB SCH (13:30)
--- NOTE | 2018-06-16 14:22 | CONS ---
Assessment/Plan Assessment/Plan Hospital Course (Demo Recall) Septic as well as hemorrhagic shock-resolved Acute respiratory failure status post intubation and repeat tracheostomy Acute blood loss anemia History of respiratory failure status post decannulation Preserved ejection fraction echocardiogram 05/10/2018 Paroxysmal atrial fibrillation Acute kidney injury -Patient with paroxysmal atrial fibrillation, has remained sinus with beta- tin and amiodarone -Vent management as per pulmonary -Fluid management and electrolytes as per renal -Antibiotics as per infectious disease -No anticoagulation given recurrent anemia requiring blood transfusions Consultation Date/Type/Reason Admit Date/Time May 06, 2018 at 17:38 Initial Consult Date 05/10/18 Type of Consult Cardiology Requesting Provider: ROLAND GIRON MD Date/Time of Note DATE: 06/16/18 TIME: 14:20 24 HR Interval Summary Free Text/Dictation Denies shortness of breath, palpitations Exam/Review of Systems Vital Signs Vitals Vital Signs Date Temp Pulse Resp B/P (MAP) Pulse Ox O2 O2 Flow FiO2 Time Delivery Rate 06/16/18 70 21 100 30 13:15 06/16/18 98.0 157/70 11:17 (99) 06/13/18 Trach 16:10 Collar Intake and Output 06/15/18 06/15/18 06/16/18 1515:00 23:00 07:00 IntakeIntake Total 320 ml OutputOutput Total 120 ml 750 ml 500 ml BalanceBalance 200 ml -750 ml -500 ml Exam Constitutional: alert (Following commands, no apparent distress) Head: normocephalic Respiratory: other (Coarse breath sounds bilaterally, no wheezing) Cardiovascular: regular rate and rhythm, other (S1-S2 heard) Gastrointestinal: soft, non-tender, bowel sounds Extremities: edema Labs Result Diagram: 06/16/18 0806 06/16/18 0806 Results 24hrs Laboratory Tests Test 06/15/18 15:25 06/16/18 08:06 06/16/18 13:00 Urine Color YELLOW Urine Clarity TURBID A Urine pH 6.0 Urine Specific [place] 1.012 Urine Ketones NEGATIVE Urine Nitrite POSITIVE A Urine Bilirubin NEGATIVE Urine Urobilinogen NEGATIVE Urine Leukocyte Esterase 2+ H Urine Microscopic RBC 48 H Urine Microscopic WBC > 182 H Urine Transitional Epithelial Cells MODERATE Urine Bacteria MANY A Urine Hyaline Casts MODERATE Urine Mucus FEW A Urine Hemoglobin 2+ H Urine Glucose NEGATIVE Urine Total Protein 1+ H White Blood Count 11.6 H Red Blood Count 2.37 L Hemoglobin 7.8 L Hematocrit 26.1 L Mean Corpuscular Volume 110.1 H Mean Corpuscular Hemoglobin 32.9 Mean Corpuscular Hemoglobin Concent 29.9 L Red Cell Distribution Width 24.7 H Platelet Count 295 Mean Platelet Volume 10.2 Immature Granulocytes % 0.900 H Neutrophils % 83.4 H Lymphocytes % 8.4 L Monocytes % 4.3 Eosinophils % 2.8 Basophils % 0.2 Nucleated Red Blood Cells % 0.0 Immature Granulocytes # 0.110 H Neutrophils # 9.7 H Lymphocytes # 1.0 Monocytes # 0.5 Eosinophils # 0.3 Basophils # 0.0 Nucleated Red Blood Cells # 0.0 Sodium Level 141 Potassium Level 3.8 Chloride Level 107 Carbon Dioxide Level 24 Anion Gap 10 Blood Urea Nitrogen 65 H Creatinine 1.85 H Est Glomerular Filtrat Rate mL/min Glucose Level 77 Calcium Level 9.5 Stool Occult Blood NEGATIVE Medications Medications Current Medications IV Flush (NS 10 ml) 10 ml PRN IV ; Start 05/06/18 at 20:30 Ascorbic Acid (Vitamin C) 500 mg DAILY GTB Last administered on 06/16/18at 09:14; Admin Dose 500 MG; Start 05/07/18 at 09:00 Albuterol/ Ipratropium (Duoneb) 3 ml Q2H RESP THERAPY PRN HHN SHORTNESS OF BREATH; Start 05/06/18 at 23:30 Zinc Sulfate (Zinc Sulfate) 220 mg DAILY GTB Last administered on 06/16/18 09:15; Admin Dose 220 MG; Start 05/07/18 at 09:00 Ondansetron HCl (Zofran Tab) 4 mg Q6H PRN GTB NAUSEA AND/OR VOMITING Last administered on 05/31/18at 16:47; Admin Dose 4 MG; Start 05/07/18 at 00:15 Multivitamins (Multivitamin) 30 ml DAILY GTB Last administered on 06/16/18 09:15; Admin Dose 30 ML; Start 05/07/18 at 09:00 Miscellaneous Information (Pending Santyl Order For Wound Care) This patient goldman... PRN PRN XX WOUND CARE; Start 05/09/18 at 17:00 Heparin Sodium (Porcine) (Heparin (1000 Units/ml)) 2,800 unit AFTER DIALYSIS CATHETER Last administered on 05/29/18 18:24; Admin Dose 2,800 UNIT; Start 05/16/18 at 16:30 Spironolactone (Aldactone) 50 mg DAILY GTB Last administered on 06/16/18 09:14; Admin Dose 50 MG; Start 05/21/18 at 09:00 Famotidine (Pepcid) 20 mg DAILY PEG Last administered on 06/16/18 09:15; Admin Dose 20 MG; Start 05/23/18 at 09:00 Morphine Sulfate (morphine) 6 mg Q4H PRN PEG SEVERE PAIN LEVEL 7-10 Last administered on 06/15/18 15:25; Admin Dose 6 MG; Start 05/22/18 at 17:00 Albumin Human 100 ml @ 100 mls/hr DURING DIALYSIS PRN IV hypotension on hd Last administered on 05/29/18 14:49; Admin Dose 100 MLS/HR; Start 05/27/18 at 07:30 Cholestyramine Resin (Questran Light) 4 gm 0600,1200,1800,2300 PO Last administered on 06/16/18 12:39; Admin Dose 4 GM; Start 05/27/18 at 18:00 Lorazepam (Ativan) 0.5 mg Q4H PRN IV ANXIETY; Start 05/30/18 at 12:00 Acetaminophen (Tylenol Tab) 650 mg Q4H PRN PO MILD PAIN(1-3)OR ELEVATED TEMP Last administered on 06/10/18 21:44; Admin Dose 650 MG; Start 05/31/18 at 13:00 Metoclopramide HCl (Reglan) 5 mg Q6 IV Last administered on 06/16/18 12:39; Admin Dose 5 MG; Start 05/31/18 at 13:00 Collagenase (Santyl) 1 applic DAILY TOP Last administered on 06/16/18 09:15; Admin Dose 1 APPLIC; Start 06/01/18 at 09:00 Clonidine (Catapres) 0.1 mg Q6H PRN PO ELEVATED BLOOD PRESSURE Last administered on 06/11/18 06:24; Admin Dose 0.1 MG; Start 06/03/18 at 03:30 Citric Acid/ Sodium Citrate (Bicitra) 30 ml TID PO Last administered on 06/16/18 12:39; Admin Dose 30 ML; Start 06/06/18 at 13:00 Metoprolol Tartrate (Lopressor) 75 mg Q8 GTB Last administered on 06/16/18 13:22; Admin Dose 75 MG; Start 06/08/18 at 14:00 Bumetanide (Bumex) 1 mg BID DIURETICS GTB Last administered on 06/16/18 06:14; Admin Dose 1 MG; Start 06/11/18 at 18:00 Amiodarone HCl (Cordarone) 200 mg Q12 PO Last administered on 06/16/18at 09:14; Admin Dose 200 MG; Start 06/12/18 at 21:00 Collagenase (Santyl) 1 applic PRN PRN TOP WHEN SOILED; Start 06/13/18 at 01:00 Nystatin (Nystatin Powder) 1 applic BID TOP Last administered on 06/16/18at 12:40; Admin Dose 1 APPLIC; Start 06/13/18 at 14:00 Vancomycin HCl (Vancomycin Oral Syringe) 250 mg BID GTB Last administered on 06/16/18at 09:13; Admin Dose 250 MG; Start 06/15/18 at 09:00; Stop 06/22/18 at 08:59 Vancomycin HCl (Vancomycin Oral Syringe) 250 mg DAILY GTB ; Start 06/22/18 at 09:00; Stop 06/29/18 at 08:59 Vancomycin HCl (Vancomycin Oral Syringe) 250 mg Q48H GTB ; Start 06/29/18 at 14:00; Stop 07/06/18 at 13:59 Epoetin Zen-epbx (RETACRIT(esrd)) 20,000 unit Tu@1700 SC ; Start 06/23/18 at 17:00 Epoetin Zen (Epogen (Esrd)) 20,000 units Tu@1700 SC ; Start 06/16/18 at 17:00; Stop 06/16/18 at 17:01 Cefepime HCl 50 ml @ 100 mls/hr Q24H IVPB ; Start 06/16/18 at 13:30; Stop 06/21/18 at 13:29 Evangelista Scanlon DO Jun 16, 2018 14:22
[2018-06-16] MEDS ORDERED: EPOETIN 10000 UNITS/1 ML INJ (ESRD) SC SCH (17:00)
[2018-06-16] MEDS: EPOETIN ALFA-EPBX (ESRD) 10,000 UNIT/ML VIAL SC SCH (20:13)
[2018-06-17] VITALS (22 sets, daily range): BP systolic 119–188; BP diastolic 57–88; PULSE 62–80; RESP 16–23
[2018-06-17] MEDS: morphine LIQ (10 MG/5 ML) CUP PEG PRN ×4 (03:04→22:10)
--- NOTE | 2018-06-17 05:15 | PN ---
Date/Time of Note Date/Time of Note DATE: 06/17/18 TIME: 05:15 Assessment/Plan VTE Prophylaxis Risk score (from Ns)>0 risk: 3 SCD applied (from [facility] [place] Yes SCD contraindicated: other Pharmacological prophylaxis: other Pharm contraindication: other Lines/Catheters IV Catheter Type (from [facility]): PICC Line Central line still needed: Yes Urinary Cath still in place: Yes Reason Cath still needed: urinary retention Assessment/Plan Assessment/Plan - Acute abdominal pain - CT showed Air-fluid levels are seen throughout the small bowel and colon. Consider mild ileus versus enterocolitis. - NPO/ IVF - per GI - cont to monitor -Atrial fibrillation was rapid ventricular response, s/p amiodarone drip. Rate is well controlled on p.o. amiodarone and metoprolol. - Dr. Scanlon is following in cardiology consultation. -Septic shock secondary to urinary tract infection, anterior neck soft tissue infection, and C. difficile colitis, resolving. - Continue antibiotics per ID. Dr. Brian Doyle is following in infection disease consultation. -Acute respiratory failure requiring intubation and ventilatory support. - Dr. Lambert is following in pulmonology consultation. -S/p tracheostomy on 05/29/18. -Acute kidney injury on chronic kidney disease. Started on HD this admission. - Dr. Mckeon is following in nephrology consultation. -Anemia of chronic inflammation, stool for OB is negative, status post blood transfusion. Continue Epogen. -Metabolic acidosis, resolved. -Acute diastolic congestive heart failure. -Paroxysmal atrial fibrillation -COPD -Dysphagia with PEG. -G-tube mild malfunction, changed by GI Dr. Carolina is following in gastroenterology consultation. -Obesity- weight management Patient is seen in collaboration with Dr Eisenberg. staff Result Diagram: 06/16/18 0806 06/16/18 0806 Results 24hrs Laboratory Tests Test 06/16/18 08:06 06/16/18 13:00 White Blood Count 11.6 H Red Blood Count 2.37 L Hemoglobin 7.8 L Hematocrit 26.1 L Mean Corpuscular Volume 110.1 H Mean Corpuscular Hemoglobin 32.9 Mean Corpuscular Hemoglobin Concent 29.9 L Red Cell Distribution Width 24.7 H Platelet Count 295 Mean Platelet Volume 10.2 Immature Granulocytes % 0.900 H Neutrophils % 83.4 H Lymphocytes % 8.4 L Monocytes % 4.3 Eosinophils % 2.8 Basophils % 0.2 Nucleated Red Blood Cells % 0.0 Immature Granulocytes # 0.110 H Neutrophils # 9.7 H Lymphocytes # 1.0 Monocytes # 0.5 Eosinophils # 0.3 Basophils # 0.0 Nucleated Red Blood Cells # 0.0 Sodium Level 141 Potassium Level 3.8 Chloride Level 107 Carbon Dioxide Level 24 Anion Gap 10 Blood Urea Nitrogen 65 H Creatinine 1.85 H Est Glomerular Filtrat Rate mL/min Glucose Level 77 Calcium Level 9.5 Stool Occult Blood NEGATIVE Subjective 24 Hr Interval Summary Free Text/Dictation Leukocytosis; afebrile CR 1.85 today refuses ADLs at times no new events reported last night dw staff Subjective hx not possible: pt non-verbal Constitutional: requiring IVF, requiring O2 Exam/Review of Systems Exam Vitals Vital Signs Date Temp Pulse Resp B/P (MAP) Pulse Ox O2 O2 Flow FiO2 Time Delivery Rate 06/17/18 74 04:00 06/17/18 20 99 30 01:51 06/16/18 98.5 135/78 20:00 (97) 06/13/18 Trach 16:10 Collar Intake and Output 06/16/18 06/16/18 06/17/18 1515:00 23:00 07:00 IntakeIntake Total 950 ml OutputOutput Total 200 ml 400 ml BalanceBalance -200 ml 550 ml Constitutional: alert, non-verbal, frail Psych: nl mood/affect Eyes: nl lids, nl sclera ENMT: nl external ears & nose Neck: non-tender, other (trach inatct) Respiratory: clear to auscultation Cardiovascular: nl pulses, other (s1s2) Gastrointestinal: soft, tender, other (gt inatct) Musculoskeletal: muscle weakness Extremities: normal pulses Neurological: confused Lymph: nontender Results Results 24hrs Laboratory Tests Test 06/16/18 08:06 06/16/18 13:00 White Blood Count 11.6 H Red Blood Count 2.37 L Hemoglobin 7.8 L Hematocrit 26.1 L Mean Corpuscular Volume 110.1 H Mean Corpuscular Hemoglobin 32.9 Mean Corpuscular Hemoglobin Concent 29.9 L Red Cell Distribution Width 24.7 H Platelet Count 295 Mean Platelet Volume 10.2 Immature Granulocytes % 0.900 H Neutrophils % 83.4 H Lymphocytes % 8.4 L Monocytes % 4.3 Eosinophils % 2.8 Basophils % 0.2 Nucleated Red Blood Cells % 0.0 Immature Granulocytes # 0.110 H Neutrophils # 9.7 H Lymphocytes # 1.0 Monocytes # 0.5 Eosinophils # 0.3 Basophils # 0.0 Nucleated Red Blood Cells # 0.0 Sodium Level 141 Potassium Level 3.8 Chloride Level 107 Carbon Dioxide Level 24 Anion Gap 10 Blood Urea Nitrogen 65 H Creatinine 1.85 H Est Glomerular Filtrat Rate mL/min Glucose Level 77 Calcium Level 9.5 Stool Occult Blood NEGATIVE Medications Medication Current Medications IV Flush (NS 10 ml) 10 ml PRN IV ; Start 05/06/18 at 20:30 Ascorbic Acid (Vitamin C) 500 mg DAILY GTB Last administered on 06/16/18 09:14; Admin Dose 500 MG; Start 05/07/18 at 09:00 Albuterol/ Ipratropium (Duoneb) 3 ml Q2H RESP THERAPY PRN HHN SHORTNESS OF BREATH; Start 05/06/18 at 23:30 Zinc Sulfate (Zinc Sulfate) 220 mg DAILY GTB Last administered on 06/16/18 09:15; Admin Dose 220 MG; Start 05/07/18 at 09:00 Ondansetron HCl (Zofran Tab) 4 mg Q6H PRN GTB NAUSEA AND/OR VOMITING Last administered on 05/31/18 16:47; Admin Dose 4 MG; Start 05/07/18 at 00:15 Multivitamins (Multivitamin) 30 ml DAILY GTB Last administered on 06/16/18 09:15; Admin Dose 30 ML; Start 05/07/18 at 09:00 Miscellaneous Information (Pending Santyl Order For Wound Care) This patient goldman... PRN PRN XX WOUND CARE; Start 05/09/18 at 17:00 Heparin Sodium (Porcine) (Heparin (1000 Units/ml)) 2,800 unit AFTER DIALYSIS CATHETER Last administered on 05/29/18 18:24; Admin Dose 2,800 UNIT; Start 05/16/18 at 16:30 Spironolactone (Aldactone) 50 mg DAILY GTB Last administered on 06/16/18 09:14; Admin Dose 50 MG; Start 05/21/18 at 09:00 Famotidine (Pepcid) 20 mg DAILY PEG Last administered on 06/16/18 09:15; Admin Dose 20 MG; Start 05/23/18 at 09:00 Morphine Sulfate (morphine) 6 mg Q4H PRN PEG SEVERE PAIN LEVEL 7-10 Last administered on 06/17/18 03:04; Admin Dose 6 MG; Start 05/22/18 at 17:00 Albumin Human 100 ml @ 100 mls/hr DURING DIALYSIS PRN IV hypotension on hd Last administered on 05/29/18 14:49; Admin Dose 100 MLS/HR; Start 05/27/18 at 07:30 Cholestyramine Resin (Questran Light) 4 gm 0600,1200,1800,2300 PO Last administered on 06/16/18 23:09; Admin Dose 4 GM; Start 05/27/18 at 18:00 Lorazepam (Ativan) 0.5 mg Q4H PRN IV ANXIETY; Start 05/30/18 at 12:00 Acetaminophen (Tylenol Tab) 650 mg Q4H PRN PO MILD PAIN(1-3)OR ELEVATED TEMP Last administered on 06/10/18 21:44; Admin Dose 650 MG; Start 05/31/18 at 13:00 Metoclopramide HCl (Reglan) 5 mg Q6 IV Last administered on 06/16/18 23:09; Admin Dose 5 MG; Start 05/31/18 at 13:00 Collagenase (Santyl) 1 applic DAILY TOP Last administered on 06/16/18 09:15; Admin Dose 1 APPLIC; Start 06/01/18 at 09:00 Clonidine (Catapres) 0.1 mg Q6H PRN PO ELEVATED BLOOD PRESSURE Last administered on 06/11/18 06:24; Admin Dose 0.1 MG; Start 06/03/18 at 03:30 Citric Acid/ Sodium Citrate (Bicitra) 30 ml TID PO Last administered on 06/16/18 20:14; Admin Dose 30 ML; Start 06/06/18 at 13:00 Metoprolol Tartrate (Lopressor) 75 mg Q8 GTB Last administered on 06/16/18 21:10; Admin Dose 75 MG; Start 06/08/18 at 14:00 Bumetanide (Bumex) 1 mg BID DIURETICS GTB Last administered on 06/16/18 18:02; Admin Dose 1 MG; Start 06/11/18 at 18:00 Amiodarone HCl (Cordarone) 200 mg Q12 PO Last administered on 06/16/18at 21:09; Admin Dose 200 MG; Start 06/12/18 at 21:00 Collagenase (Santyl) 1 applic PRN PRN TOP WHEN SOILED; Start 06/13/18 at 01:00 Nystatin (Nystatin Powder) 1 applic BID TOP Last administered on 06/16/18at 21:11; Admin Dose 1 APPLIC; Start 06/13/18 at 14:00 Vancomycin HCl (Vancomycin Oral Syringe) 250 mg BID GTB Last administered on 06/16/18at 20:13; Admin Dose 250 MG; Start 06/15/18 at 09:00; Stop 06/22/18 at 08:59 Vancomycin HCl (Vancomycin Oral Syringe) 250 mg DAILY GTB ; Start 06/22/18 at 09:00; Stop 06/29/18 at 08:59 Vancomycin HCl (Vancomycin Oral Syringe) 250 mg Q48H GTB ; Start 06/29/18 at 14:00; Stop 07/06/18 at 13:59 Cefepime HCl 50 ml @ 100 mls/hr Q24H IVPB Last administered on 06/16/18at 15:31; Admin Dose 100 MLS/HR; Start 06/16/18 at 13:30; Stop 06/21/18 at 13:29 Epoetin Zen-epbx (RETACRIT(esrd)) 20,000 unit Tu@1700 SC Last administered on 06/16/18at 20:13; Admin Dose 20,000 UNIT; Start 06/16/18 at 18:30 KERON MORAN June 17, 2018 05:15
[2018-06-17] MEDS: BUMETANIDE 1 MG TAB GTB SCH ×2 (05:49→17:15)
[2018-06-17] MEDS: METOCLOPRAMIDE 10 MG INJ IV SCH ×3 (05:49→17:15)
[2018-06-17] MEDS: CHOLESTYRAMINE (LIGHT) 4 GM PACKET PO SCH ×4 (05:49→23:00)
[2018-06-17] MEDS ORDERED: MAGNESIUM SULFATE 2 GM/50 ML 50 ML IVPB ONE ×2 (08:30)
[2018-06-17] MEDS: CITRIC ACID/NA CITRATE 30 ML CUP PO SCH ×3 (08:55→22:07)
[2018-06-17] MEDS: MULTIVITAMINS 30 ML CUP GTB SCH (08:55)
[2018-06-17] MEDS: ZINC SULFATE 220 MG CAP GTB SCH (08:55)
[2018-06-17] MEDS: ASCORBIC ACID 500 MG TAB GTB SCH (08:55)
[2018-06-17] MEDS: FAMOTIDINE 20 MG TAB PEG SCH (08:56)
[2018-06-17] MEDS: SPIRONOLACTONE 25 MG TAB GTB SCH (08:56)
[2018-06-17] MEDS: AMIODARONE 200 MG TAB PO SCH ×2 (08:56→22:23)
[2018-06-17] MEDS: VANCOMYCIN HCL 250 MG/5ML POSYG GTB SCH ×2 (08:57→22:07)
[2018-06-17] MEDS: COLLAGENASE 5 GM (UD JAR) TOP SCH (08:58)
[2018-06-17] MEDS: NYSTATIN 30 GM POWDER BTL TOP SCH ×2 (08:58→21:00)
[2018-06-17] MEDS: BALSAM PERU/CASTOR OIL 60 GM TUBE TOP SCH ×2 (08:58→22:08)
--- NOTE | 2018-06-17 08:59 | PN ---
DATE: 06/17/2018 SUBJECTIVE: The patient is stable, no events overnight. OBJECTIVE: VITAL SIGNS: Blood pressure is 162/73, pulse 79, respiration 20, temperature 98.8. HEENT: Head is normocephalic. NECK: Supple. HEART: Regular rate. LUNGS: Show diminished breath sounds at the base. ABDOMEN: Soft, nontender to palpation without rebound or guarding. EXTREMITIES: Negative for clubbing, cyanosis. Trace edema. DERMATOLOGIC: No rashes. MUSCULOSKELETAL: No joint effusion. NEUROLOGIC: No change in exam. MEDICATIONS: The patient's medications have been reviewed. LABORATORY DATA: From 06/17/2018 is reviewed. ASSESSMENT AND PLAN: 1. Nonoliguric acute kidney injury on top of chronic kidney disease stage IIIB/IV with previous base line creatinine of around 2 mg/dL. Etiology of acute kidney injury is secondary to acute tubular nec rosis. The patient is status post hemodialysis. Renal function is improved. Continue to monitor. Continue current treatment plan. 2. Volume overload. Continue Bumex. Continue intermittent metolazone. 3. Hypernatremia, improved. Continue free water flushes. 4. Hypokalemia, improved. 5. Metabolic acidosis. Continue Bicitra. 6. Hypomagnesemia. We will replete with magnesium sulfate. 7. Anemia. Continue to monitor hemoglobin and hematocrit levels. 8. Mineral bone disorder, monitor calcium and phosphorus levels. 9. Ventilator-dependent respiratory failure. Vent settings and ABG was reviewed. Continue to monit or. 10. Sepsis, status post shock. The patient is completing antibiotic course. 11. Dysphagia. Continue tube feeding. 12. Lower extremity wounds. Continue wound care. 13. Acute encephalopathy. Mental status is improving. Continue to monitor. Dictated By: JEANA BANSAL DO NR/NTS Conf#: [id number] DID#: [id number] CC: QUINTEN UMAÑA MD; ROLAND GIRON MD;*EndCC*
[2018-06-17] MEDS: METOPROLOL 25 MG TAB GTB SCH ×3 (09:36→22:09)
--- NOTE | 2018-06-17 09:45 | CONS ---
Assessment/Plan Assessment/Plan Assessment/Plan (Daily) Ventilator setting; AC of 20, tidal volume 500, PEEP of 5, 30% FiO2. Assessment recommendations; 1. Patient with history of chronic respiratory failure status post decannulation of tracheostomy admitted again for severe bilateral pneumonia requiring redo tracheostomy. 2. COPD. 3. Chronic atrial fibrillation. 4. Critical illness neuropathy/myopathy. 5. Chronic renal failure, on hemodialysis now. 6. Apparent clinical resolution of ileus. Continue current supportive care. [facility] Prognosis is poor. Consultation Date/Type/Reason Admit Date/Time May 06, 2018 at 17:38 Initial Consult Date 05/10/18 Type of Consult Pulmonary/critical care Requesting Provider: ROLAND GIRON MD Date/Time of Note DATE: 06/17/18 TIME: 09:43 24 HR Interval Summary Free Text/Dictation Patient's condition is stable. Denies any further abdominal pain. General exam; elderly lady, on ventilator via tracheostomy, awake and alert. Currently in no distress. Exam/Review of Systems Exam Vitals Vital Signs Date Temp Pulse Resp B/P (MAP) Pulse Ox O2 O2 Flow FiO2 Time Delivery Rate 06/17/18 79 08:34 06/17/18 98.8 22 162/73 97 Trach 07:08 (102) Collar 06/17/18 30 05:41 Intake and Output 06/16/18 06/16/18 06/17/18 1515:00 23:00 07:00 IntakeIntake Total 950 ml 900 ml OutputOutput Total 200 ml 400 ml BalanceBalance -200 ml 550 ml 900 ml Exam H ENT exam; supple neck, no JVD. Tracheostomy placed. Insertion site is clean. No neck masses. Chest exam; diminished breath sounds bilaterally. No added sounds. S1-S2 audible, no murmurs. Irregular rhythm. Abdomen exam; soft, no organomegaly. Nondistended. Nontender. G-tube in place. Bowel sounds audible. Extremity exam; no edema. Patient does have patchy ecchymosis. DIRECTOR INTERNAL CONTROL exam; she is awake and not exhibiting any focal motor deficit. Results Result Diagram: 06/16/18 0806 06/17/18 0602 Results 24hrs Laboratory Tests Test 06/16/18 13:00 06/17/18 06:02 Stool Occult Blood NEGATIVE Sodium Level 140 Potassium Level 3.5 Chloride Level 104 Carbon Dioxide Level 25 Anion Gap 11 Blood Urea Nitrogen 67 H Creatinine 1.85 H Est Glomerular Filtrat Rate mL/min Glucose Level 137 # Calcium Level 9.6 Phosphorus Level 3.8 Magnesium Level 1.5 L Medications Medication Current Medications IV Flush (NS 10 ml) 10 ml PRN IV ; Start 05/06/18 at 20:30 Ascorbic Acid (Vitamin C) 500 mg DAILY GTB Last administered on 06/17/18 08:55; Admin Dose 500 MG; Start 05/07/18 at 09:00 Albuterol/ Ipratropium (Duoneb) 3 ml Q2H RESP THERAPY PRN HHN SHORTNESS OF RADHA ATH; Start 05/06/18 at 23:30 Zinc Sulfate (Zinc Sulfate) 220 mg DAILY GTB Last administered on 06/17/18 08:55; Admin Dose 220 MG; Start 05/07/18 at 09:00 Ondansetron HCl (Zofran Tab) 4 mg Q6H PRN GTB NAUSEA AND/OR VOMITING Last administered on 05/31/18 16:47; Admin Dose 4 MG; Start 05/07/18 at 00:15 Multivitamins (Multivitamin) 30 ml DAILY GTB Last administered on 06/17/18 08:55; Admin Dose 30 ML; Start 05/07/18 at 09:00 [facility] This patient goldman... PRN PRN XX WOUND CARE; Start 05/09/18 at 17:00 Heparin Sodium (Porcine) (Heparin (1000 Units/ml)) 2,800 unit AFTER DIALYSIS CATHETER Last administered on 05/29/18 18:24; Admin Dose 2,800 UNIT; Start 05/16/18 at 16:30 Spironolactone (Aldactone) 50 mg DAILY GTB Last administered on 06/17/18 08:56; Admin Dose 50 MG; Start 05/21/18 at 09:00 Famotidine (Pepcid) 20 mg DAILY PEG Last administered on 06/17/18 08:56; Admin Dose 20 MG; Start 05/23/18 at 09:00 Morphine Sulfate (morphine) 6 mg Q4H PRN PEG SEVERE PAIN LEVEL 7-10 Last administered on 06/17/18 03:04; Admin Dose 6 MG; Start 05/22/18 at 17:00 Albumin Human 100 ml @ 100 mls/hr DURING DIALYSIS PRN IV hypotension on hd Last administered on 05/29/18 14:49; Admin Dose 100 MLS/HR; Start 05/27/18 at 07:30 Cholestyramine Resin (Questran Light) 4 gm 0600,1200,1800,2300 PO Last administered on 06/17/18 05:49; Admin Dose 4 GM; Start 05/27/18 at 18:00 Lorazepam (Ativan) 0.5 mg Q4H PRN IV ANXIETY; Start 05/30/18 at 12:00 Acetaminophen (Tylenol Tab) 650 mg Q4H PRN PO MILD PAIN(1-3)OR ELEVATED TEMP Last administered on 06/10/18 21:44; Admin Dose 650 MG; Start 05/31/18 at 13:00 Metoclopramide HCl (Reglan) 5 mg Q6 IV Last administered on 06/17/18 05:49; Admin Dose 5 MG; Start 05/31/18 at 13:00 Collagenase (Santyl) 1 applic DAILY TOP Last administered on 06/17/18 08:58; Admin Dose 1 APPLIC; Start 06/01/18 at 09:00 Clonidine (Catapres) 0.1 mg Q6H PRN PO ELEVATED BLOOD PRESSURE Last administered on 06/17/18 05:59; Admin Dose 0.1 MG; Start 06/03/18 at 03:30 Citric Acid/ Sodium Citrate (Bicitra) 30 ml TID PO Last administered on 06/17/18 08:55; Admin Dose 30 ML; Start 06/06/18 at 13:00 Metoprolol Tartrate (Lopressor) 75 mg Q8 GTB Last administered on 06/17/18 09:36; Admin Dose 75 MG; Start 06/08/18 at 14:00 Bumetanide (Bumex) 1 mg BID DIURETICS GTB Last administered on 06/17/18 05:49; Admin Dose 1 MG; Start 06/11/18 at 18:00 Amiodarone HCl (Cordarone) 200 mg Q12 PO Last administered on 06/17/18 08:56; Admin Dose 200 MG; Start 06/12/18 at 21:00 Collagenase (Santyl) 1 applic PRN PRN TOP WHEN SOILED; Start 06/13/18 at 01:00 Nystatin (Nystatin Powder) 1 applic BID TOP Last administered on 06/17/18at 08:58; Admin Dose 1 APPLIC; Start 06/13/18 at 14:00 Vancomycin HCl (Vancomycin Oral Syringe) 250 mg BID GTB Last administered on 06/17/18 08:57; Admin Dose 250 MG; Start 06/15/18 at 09:00; Stop 06/22/18 at 08 :59 Vancomycin HCl (Vancomycin Oral Syringe) 250 mg DAILY GTB ; Start 06/22/18 at 09:00; Stop 06/29/18 at 08:59 Vancomycin HCl (Vancomycin Oral Syringe) 250 mg Q48H GTB ; Start 06/29/18 at 14:00; Stop 07/06/18 at 13:59 Cefepime HCl 50 ml @ 100 mls/hr Q24H IVPB Last administered on 06/16/18at 15:31; Admin Dose 100 MLS/HR; Start 06/16/18 at 13:30; Stop 06/21/18 at 13:29 Epoetin Zen-epbx (RETACRIT(esrd)) 20,000 unit Tu@1700 SC Last administered on 06/16/18at 20:13; Admin Dose 20,000 UNIT; Start 06/16/18 at 18:30 Magnesium Sulfate 50 ml @ 25 mls/hr ONCE ONCE IVPB Last administered on 06/17/18 08:57; Admin Dose 25 MLS/HR; Start 06/17/18 at 08:30; Stop 06/17/18 at 10:29 Magnesium Sulfate 50 ml @ 25 mls/hr ONCE ONCE IVPB ; Start 06/17/18 at 08:30; Stop 06/17/18 at 10:29; Status ELOISA NAIK June 17, 2018 09:45
[2018-06-17] MEDS ORDERED: AMIKACIN IV PER PHARMACY XX SCH (11:30)
--- NOTE | 2018-06-17 11:30 | CONS ---
Assessment/Plan Assessment/Plan Hospital Course (Demo Recall) Septic as well as hemorrhagic shock-resolved Acute respiratory failure status post intubation and repeat tracheostomy Acute blood loss anemia History of respiratory failure status post decannulation Preserved ejection fraction echocardiogram 05/10/2018 Paroxysmal atrial fibrillation Acute kidney injury Hypertension -Patient with paroxysmal atrial fibrillation, has remained sinus with beta-bl ocker and amiodarone -Blood pressure on the higher side, will start amlodipine -Vent management as per pulmonary -Fluid management and electrolytes as per renal -Antibiotics as per infectious disease -No anticoagulation given recurrent anemia requiring blood transfusions Consultation Date/Type/Reason Admit Date/Time May 06, 2018 at 17:38 Initial Consult Date 05/10/18 Type of Consult Cardiology Requesting Provider: ROLAND GIRON MD Date/Time of Note DATE: 06/17/18 TIME: 11:28 24 HR Interval Summary Free Text/Dictation Denies chest pain, palpitations. Complaining of generalized abdominal pain Exam/Review of Systems Vital Signs Vitals Vital Signs Date Temp Pulse Resp B/P (MAP) Pulse Ox O2 O2 Flow FiO2 Time Delivery Rate 06/17/18 79 08:34 06/17/18 98.8 22 162/73 97 Trach 07:08 (102) Collar 06/17/18 30 05:41 Intake and Output 06/16/18 06/16/18 06/17/18 1515:00 23:00 07:00 IntakeIntake Total 950 ml 900 ml OutputOutput Total 200 ml 400 ml BalanceBalance -200 ml 550 ml 900 ml Exam Constitutional: alert, oriented Head: normocephalic Neck: other (Tracheostomy) Respiratory: other (Coarse breath sounds bilaterally, no wheezing) Cardiovascular: regular rate and rhythm (S1-S2 heard) Gastrointestinal: soft, bowel sounds, tender, other (No guarding) Extremities: edema Labs Result Diagram: 06/16/18 0806 06/17/18 0602 Results 24hrs Laboratory Tests Test 06/16/18 13:00 06/17/18 06:02 Stool Occult Blood NEGATIVE Sodium Level 140 Potassium Level 3.5 Chloride Level 104 Carbon Dioxide Level 25 Anion Gap 11 Blood Urea Nitrogen 67 H Creatinine 1.85 H Est Glomerular Filtrat Rate mL/min Glucose Level 137 # Calcium Level 9.6 Phosphorus Level 3.8 Magnesium Level 1.5 L Medications Medications Current Medications IV Flush (NS 10 ml) 10 ml PRN IV ; Start 05/06/18 at 20:30 Ascorbic Acid (Vitamin C) 500 mg DAILY GTB Last administered on 06/17/18 08:55; Admin Dose 500 MG; Start 05/07/18 at 09:00 Albuterol/ Ipratropium (Duoneb) 3 ml Q2H RESP THERAPY PRN HHN SHORTNESS OF BREATH; Start 05/06/18 at 23:30 Zinc Sulfate (Zinc Sulfate) 220 mg DAILY GTB Last administered on 06/17/18 08:55; Admin Dose 220 MG; Start 05/07/18 at 09:00 Ondansetron HCl (Zofran Tab) 4 mg Q6H PRN GTB NAUSEA AND/OR VOMITING Last administered on 05/31/18 16:47; Admin Dose 4 MG; Start 05/07/18 at 00:15 Multivitamins (Multivitamin) 30 ml DAILY GTB Last administered on 06/17/18 08:55; Admin Dose 30 ML; Start 05/07/18 at 09:00 Miscellaneous Information (Pending [facility] Order For Wound Care) This patient goldman... PRN PRN XX WOUND CARE; Start 05/09/18 at 17:00 Heparin Sodium (Porcine) (Heparin (1000 Units/ml)) 2,800 unit AFTER DIALYSIS CATHETER Last administered on 05/29/18 18:24; Admin Dose 2,800 UNIT; Start 05/16/18 at 16:30 Spironolactone (Aldactone) 50 mg DAILY GTB Last administered on 06/17/18 08:56; Admin Dose 50 MG; Start 05/21/18 at 09:00 Famotidine (Pepcid) 20 mg DAILY PEG Last administered on 06/17/18 08:56; Admin Dose 20 MG; Start 05/23/18 at 09:00 Morphine Sulfate (morphine) 6 mg Q4H PRN PEG SEVERE PAIN LEVEL 7-10 Last administered on 06/17/18 11:21; Admin Dose 6 MG; Start 05/22/18 at 17:00 Albumin Human 100 ml @ 100 mls/hr DURING DIALYSIS PRN IV hypotension on hd Last administered on 05/29/18 14:49; Admin Dose 100 MLS/HR; Start 05/27/18 at 07:30 Cholestyramine Resin (Questran Light) 4 gm 0600,1200,1800,2300 PO Last administered on 06/17/18 05:49; Admin Dose 4 GM; Start 05/27/18 at 18:00 Lorazepam (Ativan) 0.5 mg Q4H PRN IV ANXIETY; Start 05/30/18 at 12:00 Acetaminophen (Tylenol Tab) 650 mg Q4H PRN PO MILD PAIN(1-3)OR ELEVATED TEMP Last administered on 06/10/18 21:44; Admin Dose 650 MG; Start 05/31/18 at 13:00 Metoclopramide HCl (Reglan) 5 mg Q6 IV Last administered on 06/17/18 05:49; Admin Dose 5 MG; Start 05/31/18 at 13:00 Collagenase (Santyl) 1 applic DAILY TOP Last administered on 06/17/18 08:58; Admin Dose 1 APPLIC; Start 06/01/18 at 09:00 Clonidine (Catapres) 0.1 mg Q6H PRN PO ELEVATED BLOOD PRESSURE Last administered on 06/17/18 05:59; Admin Dose 0.1 MG; Start 06/03/18 at 03:30 Citric Acid/ Sodium Citrate (Bicitra) 30 ml TID PO Last administered on 08:55; Admin Dose 30 ML; Start 06/06/18 at 13:00 Metoprolol Tartrate (Lopressor) 75 mg Q8 GTB Last administered on 06/17/18 09:36; Admin Dose 75 MG; Start 06/08/18 at 14:00 Bumetanide (Bumex) 1 mg BID DIURETICS GTB Last administered on 06/17/18 05:49; Admin Dose 1 MG; Start 06/11/18 at 18:00 Amiodarone HCl (Cordarone) 200 mg Q12 PO Last administered on 06/17/18 08:56; Admin Dose 200 MG; Start 06/12/18 at 21:00 Collagenase (Santyl) 1 applic PRN PRN TOP WHEN SOILED; Start 06/13/18 at 01:00 Nystatin (Nystatin Powder) 1 applic BID TOP Last administered on 06/17/18 08:58; Admin Dose 1 APPLIC; Start 06/13/18 at 14:00 Vancomycin HCl (Vancomycin Oral Syringe) 250 mg BID GTB Last administered on 06/17/18at 08:57; Admin Dose 250 MG; Start 06/15/18 at 09:00; Stop 06/22/18 at 08:59 Vancomycin HCl (Vancomycin Oral Syringe) 250 mg DAILY GTB ; Start 06/22/18 at 09:00; Stop 06/29/18 at 08:59 Vancomycin HCl (Vancomycin Oral Syringe) 250 mg Q48H GTB ; Start 06/29/18 at 14:00; Stop 07/06/18 at 13:59 Epoetin Zen-epbx (RETACRIT(esrd)) 20,000 unit Tu@1700 SC Last administered on 06/16/18at 20:13; Admin Dose 20,000 UNIT; Start 06/16/18 at 18:30 Amikacin Sulfate (Amikacin Iv Per Pharmacy) AMIKACIN PER PHARMACY NOTE XX ; Start 06/17/18 at 11:30; Stop 06/22/18 at 11:29; Status Evangelista Oswald DO June 17, 2018 11:30
[2018-06-17] MEDS: AMLODIPINE 5 MG TAB PO SCH (12:18)
--- NOTE | 2018-06-17 13:27 | CONS ---
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 colonization of the airway by pseudomonas and ESBL+klebsiella - h/o possible, recurrent HCAP due to pseudomonas and ESBL+klebsiella - h/o recurrent HCAP due to MRSA and Enterobacter (culture of tracheal aspirate on 07/16/2017 that was collected at [facility]) . Pt took vancomycin and ceftazidime - h/o decannulation prior to admission - h/o tracheostomy on 06/11/2017 - h/o SIRS from UGIB in 2018 - h/o thoracentesis on 07/18/2017, transudative (protein <2, LDH 279) - h/o bleeding from the trach site in 2018 - h/o septic shock due to pneumonia, ARDS, bacteremia, fungemia in 2018 - h/o ARDS in 2018 - h/o smoking - COPD - h/o ILD per medical record - h/o PAF, improved # GI - possible ileus or enterocolitis on CT abd/pel 06/15/2018 - C diff colitis, diagnosed on 05/11/2018. IV metronidazole (05/11/2018-05/29/2018; restart 05/30/2018-06/05/18), pGT vancomycin induction followed by taper (05/11/2018-) - h/o intermittent diarrhea, Pt had multiple negative C. diff tests at [facility] at OSH in the past; none was positive until 05/11/2018 - dysphagia - h/o PEG placement 06/13/2018 - protein calorie malnutrition - h/o coffee ground emesis/UGIB on 12/23/2017 due to deep ulceration of distal esophagus and gastritis on EGD 12/26/2017. No e/o H. pylori - h/o possible appendicitis on CT on 11/22/2017, Pt took ertapenem (11/24/2017- 12/01/2017) - h/o extensive adhesions lower abdominal and pelvis between small bowel to each other and to colon and to abdominal wall, anterior pelvic wall chronic abscess secondary to probably an old perforated diverticulitis, torsion of small bowel a round these dense adhesion causing multiple obstructive points - h/o laparoscopic exploration and extensive lysis of adhesions and drainage of anterior pelvic wall abscess 09/16/2017. Cultures were negative, no e/o malignancy. 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 Pt is on amikacin x 5 days (06/17- 06/22/2018) - UTI due to pseudomonas and ESBL+klebsiella on 06/09/2018, Pt took one dose of fosfomycin on 06/10/2018 and cipro 06/12-06/15/2018 - anasarca - started on HD on 05/15/2018, via Juan in R groin - recurrent NATHAN on CKD - 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 Her strain of CRE was sensitive to colistin, Avycaz, and Vabomere but resistant to Zerbaxa (reported on 05/19/2018) - Hyponatremia - Hyperkalemia, now hypokalemia - Metabolic acidosis - adrenal insufficiency - h/o vaginal bleed in 2018 - h/o colonization of urinary tract by ESBL+klebsiella, VRE - h/o recurrent, symptomatic UTI due to carbapenem-resistant kleb (MDR strain) per urine culture 10/04/17, 10/09/17, 10/21/2017, P took colistin (10/09/2017- 10/15/2017), fosfomycin for carbapenemase-producing klebsiella and VRE on 10/25/2017 and 10/28/2017 - h/o funguria - h/o urinary retention # fungemia, bacteremia 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; Pt declined surgery for MVR per outside medical records; TTE 07/01/17 did not mention any thrombus; s/p voriconazole (05/25/2017-08/01/2017) - h/o bacteremia due to MSSA and proteus s/p ceftriaxone; repeat blood cultures were negative on 06/14/2017 # musculoskeletal and dermatological - L hand pain - dry skin - chronic wound of LLE - h/o infection of wound of LLE - h/o debridement of wound of LLE on 08/06/2017 - h/o recurrent herpes labialis, Pt took acyclovir, valacyclovir - h/o Osler's nodes (eschar) of R toes with erythematous skin; desquamation of the skin and open lacerations on R plantar foot. improved. Probable manifestation of endocarditis. Pt declined MRI on 08/06/2017 - h/o infection of R toes due to pseudomonas. coagulase negative Staph likely a colonizer - h/o intertrigo of the groin, resolved with nystatin powder - h/o scabies, locally crusted lesion over L scapula, s/p permethrin cream and pGT ivermectin on 08/11/2017, 08/12/2017, 08/19/2017. Repeat skin scraping on 08/21/2017 was negative for scabies # psych, neuro - decreased hearing b/l - s/p acute toxic metabolic encephalopathy - h/o critical illness polyneuropathy - anxiety/depression, bipolar d/o, seen by Psychiatry in the past - chronic pain syndrome - h/o medical non-compliance: she would refuse her medications, treatment and straight catheterization in 2018 # hematological, vascular - chronic anemia requiring blood transfusion intermittently - macrocytic anemia - aneurysmal dilatation of the distal aorta visualized on CT 06/15/2018 - PVD recommendations: - d/c cefepime - start renally dosed amikacin for klebsiella in her blood culture (06/17- 06/22/2018), planned for 5 days - continue pGT vancomycin taper: 06/15/2018-06/21/2018 bid, 06/22-06/28: daily, 06/29- 07/05: q48hrs management d/w Pt's nurse Consultation Date/Type/Reason Admit Date/Time May 06, 2018 at 17:38 Initial Consult Date 05/10/18 Type of Consult ID Requesting Provider: ROLAND GIRON MD Date/Time of Note DATE: 06/17/18 TIME: 13:24 24 HR Interval Summary Subjective hx not possible: pt non-verbal Exam/Review of Systems Exam Vitals Vital Signs Date Temp Pulse Resp B/P (MAP) Pulse Ox O2 O2 Flow FiO2 Time Delivery Rate 06/17/18 98.9 66 23 145/67 95 Trach 11:51 (93) Collar 06/17/18 30 05:41 Intake and Output 06/16/18 06/16/18 06/17/18 1515:00 23:00 07:00 IntakeIntake Total 950 ml 900 ml OutputOutput Total 200 ml 400 ml BalanceBalance -200 ml 550 ml 900 ml Constitutional: non-verbal, frail Psych: confusion Head: normocephalic, atraumatic Eyes: nl conjunctiva ENMT: nl external ears & nose, nl nasal mucosa & septum Neck: other (tracg) Respiratory: diminished breath sounds Cardiovascular: regular rate and rhythm, nl pulses Gastrointestinal: soft, non-tender, other (GT); No distended, No tender Genitourinary - Female: other (FC) Musculoskeletal: muscle weakness Neurological: lethargic Skin: rash or lesions (flaky skin) Results Result Diagram: 06/16/18 0806 06/17/18 0602 Results 24hrs Laboratory Tests Test 06/17/18 06:02 06/17/18 11:45 Sodium Level 140 Potassium Level 3.5 Chloride Level 104 Carbon Dioxide Level 25 Anion Gap 11 Blood Urea Nitrogen 67 H Creatinine 1.85 H Est Glomerular Filtrat Rate mL/min Glucose Level 137 # Calcium Level 9.6 Phosphorus Level 3.8 Magnesium Level 1.5 L Lab Scanned Report REFERENCE LAB Medications Medication Current Medications IV Flush (NS 10 ml) 10 ml PRN IV ; Start 05/06/18 at 20:30 Ascorbic Acid (Vitamin C) 500 mg DAILY GTB Last administered on 06/17/18 08:55; Admin Dose 500 MG; Start 05/07/18 at 09:00 Albuterol/ Ipratropium (Duoneb) 3 ml Q2H RESP THERAPY PRN HHN SHORTNESS OF BREATH; Start 05/06/18 at 23:30 Zinc Sulfate (Zinc Sulfate) 220 mg DAILY GTB Last administered on 06/17/18 08:55; Admin Dose 220 MG; Start 05/07/18 at 09:00 Ondansetron HCl (Zofran Tab) 4 mg Q6H PRN GTB NAUSEA AND/OR VOMITING Last administered on 05/31/18 16:47; Admin Dose 4 MG; Start 05/07/18 at 00:15 Multivitamins (Multivitamin) 30 ml DAILY GTB Last administered on 06/17/18 08:55; Admin Dose 30 ML; Start 05/07/18 at 09:00 [facility] This patient goldman... PRN PRN XX WOUND CARE; Start 05/09/18 at 17:00 Heparin Sodium (Porcine) (Heparin (1000 Units/ml)) 2,800 unit AFTER DIALYSIS CATHETER Last administered on 05/29/18 18:24; Admin Dose 2,800 UNIT; Start 05/16/18 at 16:30 Spironolactone (Aldactone) 50 mg DAILY GTB Last administered on 06/17/18 08:56; Admin Dose 50 MG; Start 05/21/18 at 09:00 Famotidine (Pepcid) 20 mg DAILY PEG Last administered on 06/17/18 08:56; Admin Dose 20 MG; Start 05/23/18 at 09:00 Morphine Sulfate (morphine) 6 mg Q4H PRN PEG SEVERE PAIN LEVEL 7-10 Last administered on 06/17/18 11:21; Admin Dose 6 MG; Start 05/22/18 at 17:00 Albumin Human 100 ml @ 100 mls/hr DURING DIALYSIS PRN IV hypotension on hd Last administered on 05/29/18 14:49; Admin Dose 100 MLS/HR; Start 05/27/18 at 07:30 Cholestyramine Resin (Questran Light) 4 gm 0600,1200,1800,2300 PO Last administered on 06/17/18 12:18; Admin Dose 4 GM; Start 05/27/18 at 18:00 Lorazepam (Ativan) 0.5 mg Q4H PRN IV ANXIETY; Start 05/30/18 at 12:00 Acetaminophen (Tylenol Tab) 650 mg Q4H PRN PO MILD PAIN(1-3)OR ELEVATED TEMP Last administered on 06/10/18 21:44; Admin Dose 650 MG; Start 05/31/18 at 13:00 Metoclopramide HCl (Reglan) 5 mg Q6 IV Last administered on 06/17/18 12:18; Admin Dose 5 MG; Start 05/31/18 at 13:00 Collagenase (Santyl) 1 applic DAILY TOP Last administered on 06/17/18 08:58; Admin Dose 1 APPLIC; Start 06/01/18 at 09:00 Clonidine (Catapres) 0.1 mg Q6H PRN PO ELEVATED BLOOD PRESSURE Last administered on 06/17/18 05:59; Admin Dose 0.1 MG; Start 06/03/18 at 03:30 Citric Acid/ Sodium Citrate (Bicitra) 30 ml TID PO Last administered on 06/17/18 12:18; Admin Dose 30 ML; Start 06/06/18 at 13:00 Metoprolol Tartrate (Lopressor) 75 mg Q8 GTB Last administered on 06/17/18 09:36; Admin Dose 75 MG; Start 06/08/18 at 14:00 Bumetanide (Bumex) 1 mg BID DIURETICS GTB Last administered on 06/17/18 05:49; Admin Dose 1 MG; Start 06/11/18 at 18:00 Amiodarone HCl (Cordarone) 200 mg Q12 PO Last administered on 06/17/18 08:56; Admin Dose 200 MG; Start 06/12/18 at 21:00 Collagenase (Santyl) 1 applic PRN PRN TOP WHEN SOILED; Start 06/13/18 at 01:00 Nystatin (Nystatin Powder) 1 applic BID TOP Last administered on 06/17/18at 0 8:58; Admin Dose 1 APPLIC; Start 06/13/18 at 14:00 Vancomycin HCl (Vancomycin Oral Syringe) 250 mg BID GTB Last administered on 06/17/18at 08:57; Admin Dose 250 MG; Start 06/15/18 at 09:00; Stop 06/22/18 at 08:59 Vancomycin HCl (Vancomycin Oral Syringe) 250 mg DAILY GTB ; Start 06/22/18 at 09:00; Stop 06/29/18 at 08:59 Vancomycin HCl (Vancomycin Oral Syringe) 250 mg Q48H GTB ; Start 06/29/18 at 14:00; Stop 07/06/18 at 13:59 Epoetin Zen-epbx (RETACRIT(esrd)) 20,000 unit Tu@1700 SC Last administered on 06/16/18at 20:13; Admin Dose 20,000 UNIT; Start 06/16/18 at 18:30 Amikacin Sulfate (Amikacin Iv Per Pharmacy) AMIKACIN PER PHARMACY NOTE XX ; Start 06/17/18 at 11:30; Stop 06/22/18 at 11:29 Amlodipine Besylate (Norvasc) 5 mg DAILY PO Last administered on 06/17/18at 12:18; Admin Dose 5 MG; Start 06/17/18 at 11:30 Amikacin Sulfate 350 mg/Sodium Chloride 101.4 ml @ 102 mls/hr Q36H IVPB ; Start 06/17/18 at 14:00; Stop 06/22/18 at 13:59 CELESTINE MURPHY M.D. June 17, 2018 13:27
[2018-06-17] MEDS: AMIKACIN 350 MG in SOD CHLORIDE 0.9% 100 ML IVPB SCH (14:34)
--- NOTE | 2018-06-17 16:25 | CONS ---
Assessment/Plan Assessment/Plan Assessment/Plan (Daily) Assessment/Plan Hospital Course (Demo Recall) 73 yo female Interval hx: Pt alert. Is having abdominal pain, tender to palpitation. 1. ABD pain -CT of abd 2. Renal failure.- on HD 3. Vent dependent resp failure 4. Chronic obstructive pulmonary disease. 5. Bipolar. 6. Paroxysmal atrial fibrillation. 7. Anemia of chronic disease. 8. CHF 9. Diarrhea 11. Diarrhea -s/p c diff colitis -taper off of vanco 12. H/O deep esophageal ulcer 13. Dysphagia with g tube 14. Anemia of chronic disease 15. UTI with positive cx CT of abd/pelvis 06/16 1. Nonspecific bibasilar ground-glass densities and the airspace disease, suggesting bilateral pneumonia versus pulmonary edema. 2. Atrophy of the left kidney. 2.3 cm left renal cyst. The right kidney demonstrates compensatory hypertrophy. No calculus or hydronephrosis in either kidney. 3. Atherosclerosis of the aorta. 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 No leak or rupture. 4. Mild nonspecific ascites in the pelvis. 5. Air-fluid levels are seen throughout the small bowel and colon. Consider mild ileus versus enterocolitis. Patient has good bowel movement and there is no evidence of emesis or nausea PLAN: Ok to resume tube feeds Continue with reglan and pepcid Taper vanco to off Monitor tube feeds residuals q 6 hours Consultation Date/Type/Reason Admit Date/Time May 06, 2018 at 17:38 Initial Consult Date 05/10/18 Requesting Provider: ROLAND GIRON MD Date/Time of Note DATE: 06/17/18 TIME: 16:24 24 HR Interval Summary Free Text/Dictation Some complaints of abdominal pain confined to the epigastric area and the left upper quadrant Exam/Review of Systems Exam Vitals Vital Signs Date Temp Pulse Resp B/P (MAP) Pulse Ox O2 O2 Flow FiO2 Time Delivery Rate 06/17/18 98.6 65 20 120/59 99 Trach 14:56 (79) Collar 06/17/18 30 05:41 Intake and Output 06/16/18 06/16/18 06/17/18 1515:00 23:00 07:00 IntakeIntake Total 950 ml 900 ml OutputOutput Total 200 ml 400 ml BalanceBalance -200 ml 550 ml 900 ml ENMT: intubated Neck: supple, non-tender Cardiovascular: regular rate and rhythm, nl pulses Musculoskeletal: nl extremities to inspection, nl gait and stance Extremities: normal pulses Results Result Diagram: 06/16/18 0806 06/17/18 0602 Results 24hrs Laboratory Tests Test 06/17/18 06:02 06/17/18 11:45 Sodium Level 140 Potassium Level 3.5 Chloride Level 104 Carbon Dioxide Level 25 Anion Gap 11 Blood Urea Nitrogen 67 H Creatinine 1.85 H Est Glomerular Filtrat Rate mL/min Glucose Level 137 # Calcium Level 9.6 Phosphorus Level 3.8 Magnesium Level 1.5 L Lab Scanned Report REFERENCE LAB Medications Medication Current Medications IV Flush (NS 10 ml) 10 ml PRN IV ; Start 05/06/18 at 20:30 Ascorbic Acid (Vitamin C) 500 mg DAILY GTB Last administered on 06/17/18at 08:55; Admin Dose 500 MG; Start 05/07/18 at 09:00 Albuterol/ Ipratropium (Duoneb) 3 ml Q2H RESP THERAPY PRN HHN SHORTNESS OF BREATH; Start 05/06/18 at 23:30 Zinc Sulfate (Zinc Sulfate) 220 mg DAILY GTB Last administered on 06/17/18 08:55; Admin Dose 220 MG; Start 05/07/18 at 09:00 Ondansetron HCl (Zofran Tab) 4 mg Q6H PRN GTB NAUSEA AND/OR VOMITING Last administered on 05/31/18at 16:47; Admin Dose 4 MG; Start 05/07/18 at 00:15 Multivitamins (Multivitamin) 30 ml DAILY GTB Last administered on 06/17/18at 08:55; Admin Dose 30 ML; Start 05/07/18 at 09:00 Miscellaneous Information (Pending Santyl Order For Wound Care) This patient goldman... PRN PRN XX WOUND CARE; Start 05/09/18 at 17:00 Heparin Sodium (Porcine) (Heparin (1000 Units/ml)) 2,800 unit AFTER DIALYSIS CATHETER Last administered on 05/29/18at 18:24; Admin Dose 2,800 UNIT; Start 05/16/18 at 16:30 Spironolactone (Aldactone) 50 mg DAILY GTB Last administered on 06/17/18at 08:56; Admin Dose 50 MG; Start 05/21/18 at 09:00 Famotidine (Pepcid) 20 mg DAILY PEG Last administered on 06/17/18 08:56; Admin Dose 20 MG; Start 05/23/18 at 09:00 Morphine Sulfate (morphine) 6 mg Q4H PRN PEG SEVERE PAIN LEVEL 7-10 Last administered on 06/17/18 11:21; Admin Dose 6 MG; Start 05/22/18 at 17:00 Albumin Human 100 ml @ 100 mls/hr DURING DIALYSIS PRN IV hypotension on hd Last administered on 05/29/18 14:49; Admin Dose 100 MLS/HR; Start 05/27/18 at 07:30 Cholestyramine Resin (Questran Light) 4 gm 0600,1200,1800,2300 PO Last administered on 06/17/18 12:18; Admin Dose 4 GM; Start 05/27/18 at 18:00 Lorazepam (Ativan) 0.5 mg Q4H PRN IV ANXIETY; Start 05/30/18 at 12:00 Acetaminophen (Tylenol Tab) 650 mg Q4H PRN PO MILD PAIN(1-3)OR ELEVATED TEMP Last administered on 06/10/18 21:44; Admin Dose 650 MG; Start 05/31/18 at 13:00 Metoclopramide HCl (Reglan) 5 mg Q6 IV Last administered on 06/17/18 12:18; Admin Dose 5 MG; Start 05/31/18 at 13:00 Collagenase (Santyl) 1 applic DAILY TOP Last administered on 06/17/18 08:58; Admin Dose 1 APPLIC; Start 06/01/18 at 09:00 Clonidine (Catapres) 0.1 mg Q6H PRN PO ELEVATED BLOOD PRESSURE Last administered on 06/17/18 05:59; Admin Dose 0.1 MG; Start 06/03/18 at 03:30 Citric Acid/ Sodium Citrate (Bicitra) 30 ml TID PO Last administered on 06/17/18 12:18; Admin Dose 30 ML; Start 06/06/18 at 13:00 Metoprolol Tartrate (Lopressor) 75 mg Q8 GTB Last administered on 06/17/18 14:33; Admin Dose 75 MG; Start 06/08/18 at 14:00 Bumetanide (Bumex) 1 mg BID DIURETICS GTB Last administered on 06/17/18 05:49; Admin Dose 1 MG; Start 06/11/18 at 18:00 Amiodarone HCl (Cordarone) 200 mg Q12 PO Last administered on 06/17/18 08:56; Admin Dose 200 MG; Start 06/12/18 at 21:00 Collagenase (Santyl) 1 applic PRN PRN TOP WHEN SOILED; Start 06/13/18 at 01:00 Nystatin (Nystatin Powder) 1 applic BID TOP Last administered on 06/17/18 08:58; Admin Dose 1 APPLIC; Start 06/13/18 at 14:00 Vancomycin HCl (Vancomycin Oral Syringe) 250 mg BID GTB Last administered on 06/17/18 08:57; Admin Dose 250 MG; Start 06/15/18 at 09:00; Stop 06/22/18 at 08:59 Vancomycin HCl (Vancomycin Oral Syringe) 250 mg DAILY GTB ; Start 06/22/18 at 09:00; Stop 06/29/18 at 08:59 Vancomycin HCl (Vancomycin Oral Syringe) 250 mg Q48H GTB ; Start 06/29/18 at 14:00; Stop 07/06/18 at 13:59 Epoetin Zen-epbx (RETACRIT(esrd)) 20,000 unit Tu@1700 SC Last administered on 06/16/18at 20:13; Admin Dose 20,000 UNIT; Start 06/16/18 at 18:30 Amikacin Sulfate (Amikacin Iv Per Pharmacy) AMIKACIN PER PHARMACY NOTE XX ; Start 06/17/18 at 11:30; Stop 06/22/18 at 11:29 Amlodipine Besylate (Norvasc) 5 mg DAILY PO Last administered on 06/17/18at 12:18; Admin Dose 5 MG; Start 06/17/18 at 11:30 Amikacin Sulfate 350 mg/Sodium Chloride 101.4 ml @ 102 mls/hr Q36H IVPB Last administered on 06/17/18 14:34; Admin Dose 102 MLS/HR; Start 06/17/18 at 14:00; Stop 06/22/18 at 13:59 QUINTEN UMAÑA MD June 17, 2018 16:25
[2018-06-18] VITALS (23 sets, daily range): BP systolic 109–154; BP diastolic 55–72; PULSE 64–78; RESP 16–26
[2018-06-18] MEDS: METOCLOPRAMIDE 10 MG INJ IV SCH ×5 (02:24→23:59)
[2018-06-18] MEDS: METOPROLOL 25 MG TAB GTB SCH ×3 (06:00→22:27)
[2018-06-18] MEDS: BUMETANIDE 1 MG TAB GTB SCH ×2 (06:05→16:30)
[2018-06-18] MEDS: CHOLESTYRAMINE (LIGHT) 4 GM PACKET PO SCH ×4 (06:07→22:27)
[2018-06-18] MEDS: ZINC SULFATE 220 MG CAP GTB SCH (08:57)
[2018-06-18] MEDS: COLLAGENASE 5 GM (UD JAR) TOP SCH (08:57)
[2018-06-18] MEDS: FAMOTIDINE 20 MG TAB PEG SCH (08:58)
[2018-06-18] MEDS: BALSAM PERU/CASTOR OIL 60 GM TUBE TOP SCH ×2 (08:58→20:53)
[2018-06-18] MEDS: MULTIVITAMINS 30 ML CUP GTB SCH (08:58)
[2018-06-18] MEDS: AMLODIPINE 5 MG TAB PO SCH (08:58)
[2018-06-18] MEDS: ASCORBIC ACID 500 MG TAB GTB SCH (08:58)
[2018-06-18] MEDS: SPIRONOLACTONE 25 MG TAB GTB SCH (08:58)
[2018-06-18] MEDS: CITRIC ACID/NA CITRATE 30 ML CUP PO SCH ×3 (08:58→20:52)
[2018-06-18] MEDS: AMIODARONE 200 MG TAB PO SCH ×2 (08:58→20:52)
[2018-06-18] MEDS: VANCOMYCIN HCL 250 MG/5ML POSYG GTB SCH ×2 (08:59→20:53)
[2018-06-18] MEDS: NYSTATIN 30 GM POWDER BTL TOP SCH ×2 (08:59→20:53)
[2018-06-18] MEDS ORDERED: POTASSIUM CHLORIDE 20 MEQ POWDER FOR ORAL SOLN GTB ONE (09:00)
--- NOTE | 2018-06-18 10:17 | PN ---
DATE: 06/18/2018 SUBJECTIVE: The patient is stable, no events overnight. No fevers, chills, nausea, vomiting. OBJECTIVE: VITAL SIGNS: Blood pressure is 115/58, pulse 64, respirations 20, temperature 98.7. HEENT: Head is normocephalic. NECK: Supple. HEART: Regular rate. LUNGS: Show diminished breath sounds at the base. ABDOMEN: Soft, nontender to palpation without rebound or guarding. EXTREMITIES: Negative for clubbing, cyanosis. Trace edema. DERMATOLOGIC: No rashes. MUSCULOSKELETAL: No joint effusion. NEUROLOGIC: No change in exam. MEDICATIONS: The patient's medications have been reviewed. LABORATORY DATA: From 06/18/2018 was reviewed. ASSESSMENT AND PLAN: 1. Nonoliguric acute kidney injury on top of chronic kidney disease stage IIIB/IV with previous base line creatinine around 2 mg/dL. Etiology is secondary to acute tubular necrosis. The patient is sta tus post hemodialysis. Renal function is improved. Continue current treatment plan, supportive care , renally dose all medicines. 2. Volume overload. Continue Bumex. 3. Hypernatremia, improved. Continue free water flushes. 4. Hypokalemia. We will replete with potassium chloride. 5. Metabolic acidosis. Continue Bicitra. 6. Hypomagnesemia. Continue to monitor and replete as needed. 7. Anemia. Monitor hemoglobin and hematocrit levels. 8. Mineral bone disorder. Monitor calcium and phosphorus levels. 9. Ventilatory dependent respiratory failure. Vent settings and ABG was reviewed. [facility] to [facility]. 10. Sepsis secondary to shock. The patient has completed antibiotic course. 11. Dysphagia. Continue tube feedings. 12. Lower extremity wounds. Continue wound care. 13. Encephalopathy. Continue to monitor. Dictated By: JEANA BANSAL DO NR/NTS Conf#: [id number] DID#: [id number] CC: ROLAND GIRON MD; QUINTEN UMAÑA MD;*EndCC*
--- NOTE | 2018-06-18 11:19 | CONS ---
Consultation Date/Type/Reason Admit Date/Time May 06, 2018 at 17:38 Initial Consult Date 05/10/18 Type of Consult Pulmonary/critical care Requesting Provider: ROLAND GIRON MD Date/Time of Note DATE: 06/18/18 TIME: 11:17 24 HR Interval Summary Free Text/Dictation Patient's condition is stable. Remains awake and alert. Has remained hemodynamically stable. General exam; elderly woman, on ventilator via tracheostomy, currently no distress. HEENT exam; supple neck, tracheostomy in place. No neck masses. Chest exam; diminished but clear breath sounds. S1-S2 audible, no murmurs. Regular rhythm. Abdomen exam; soft, G-tube in place. Bowel sounds audible. No organomegaly. Extremity exam; peripheral edema clubbing. Patient does have patchy ecchymosis. BRAIN PICKER exam; no focal deficit. Ventilator setting; AC of 20, tidal volume 500, PEEP of 5, 30% FiO2. Assessment and recommendations; 1. Patient status post redo tracheostomy 2. Status post treatment for severe bilateral pneumonia. 3. History of renal failure, on hemodialysis. 4. Anemia. 5. Critical illness neuropathy/myopathy. Continue current supportive care. Consider discharge to [facility]. Exam/Review of Systems Exam Vitals Vital Signs Date Temp Pulse Resp B/P (MAP) Pulse Ox O2 O2 Flow FiO2 Time Delivery Rate 06/18/18 68 20 98 30 09:10 06/18/18 98.7 115/58 Trach 07:46 (77) Collar Intake and Output 06/17/18 06/17/18 06/18/18 1515:00 23:00 07:00 IntakeIntake Total 1230 ml OutputOutput Total 800 ml BalanceBalance 430 ml Results Result Diagram: 06/18/18 0601 06/18/18 0600 Results 24hrs Laboratory Tests Test 06/17/18 11:45 06/18/18 06:00 06/18/18 06:01 Lab Scanned Report REFERENCE LAB Sodium Level 138 Potassium Level 3.3 L Chloride Level 102 Carbon Dioxide Level 25 Anion Gap 11 Blood Urea Nitrogen 63 H Creatinine 1.79 H Est Glomerular Filtrat Rate mL/min Glucose Level 100 Calcium Level 9.3 White Blood Count 11.4 H Red Blood Count 2.06 L Hemoglobin 7.0 L Hematocrit 22.9 L Mean Corpuscular Volume 111.2 H Mean Corpuscular Hemoglobin 34.0 H Mean Corpuscular Hemoglobin Concent 30.6 L Red Cell Distribution Width 25.0 H Platelet Count 263 Mean Platelet Volume 9.9 Immature Granulocytes % 0.800 H Neutrophils % 82.4 H Lymphocytes % 8.0 L Monocytes % 4.5 Eosinophils % 4.2 Basophils % 0.1 Nucleated Red Blood Cells % 0.0 Immature Granulocytes # 0.090 H Neutrophils # 9.4 H Lymphocytes # 0.9 Monocytes # 0.5 Eosinophils # 0.5 Basophils # 0.0 Nucleated Red Blood Cells # 0.0 Medications Medication Current Medications IV Flush (NS 10 ml) 10 ml PRN IV ; Start 05/06/18 at 20:30 Ascorbic Acid (Vitamin C) 500 mg DAILY GTB Last administered on 06/18/18 08:58; Admin Dose 500 MG; Start 05/07/18 at 09:00 Albuterol/ Ipratropium (Duoneb) 3 ml Q2H RESP THERAPY PRN HHN SHORTNESS OF BREATH; Start 05/06/18 at 23:30 Zinc Sulfate (Zinc Sulfate) 220 mg DAILY GTB Last administered on 06/18/18 08:57; Admin Dose 220 MG; Start 05/07/18 at 09:00 Ondansetron HCl (Zofran Tab) 4 mg Q6H PRN GTB NAUSEA AND/OR VOMITING Last administered on 05/31/18 16:47; Admin Dose 4 MG; Start 05/07/18 at 00:15 Multivitamins (Multivitamin) 30 ml DAILY GTB Last administered on 06/18/18 08:58; Admin Dose 30 ML; Start 05/07/18 at 09:00 Miscellaneous Information (Pending Santyl Order For Wound Care) This patient goldman... PRN PRN XX WOUND CARE; Start 05/09/18 at 17:00 Spironolactone (Aldactone) 50 mg DAILY GTB Last administered on 06/18/18 08:58; Admin Dose 50 MG; Start 05/21/18 at 09:00 Famotidine (Pepcid) 20 mg DAILY PEG Last administered on 06/18/18 08:58; Admin Dose 20 MG; Start 05/23/18 at 09:00 Morphine Sulfate (morphine) 6 mg Q4H PRN PEG SEVERE PAIN LEVEL 7-10 Last administered on 06/17/18 22:10; Admin Dose 6 MG; Start 05/22/18 at 17:00 Albumin Human 100 ml @ 100 mls/hr DURING DIALYSIS PRN IV hypotension on hd Last administered on 05/29/18 14:49; Admin Dose 100 MLS/HR; Start 05/27/18 at 07:30 Cholestyramine Resin (Questran Light) 4 gm 0600,1200,1800,2300 PO Last administered on 06/18/18 06:07; Admin Dose 4 GM; Start 05/27/18 at 18:00 Lorazepam (Ativan) 0.5 mg Q4H PRN IV ANXIETY; Start 05/30/18 at 12:00 Acetaminophen (Tylenol Tab) 650 mg Q4H PRN PO MILD PAIN(1-3)OR ELEVATED TEMP Last administered on 06/10/18 21:44; Admin Dose 650 MG; Start 05/31/18 at 13:00 Metoclopramide HCl (Reglan) 5 mg Q6 IV Last administered on 06/18/18 06:05; Admin Dose 5 MG; Start 05/31/18 at 13:00 Collagenase (Santyl) 1 applic DAILY TOP Last administered on 06/18/18 08:57; Admin Dose 1 APPLIC; Start 06/01/18 at 09:00 Clonidine (Catapres) 0.1 mg Q6H PRN PO ELEVATED BLOOD PRESSURE Last administered on 06/17/18 05:59; Admin Dose 0.1 MG; Start 06/03/18 at 03:30 Citric Acid/ Sodium Citrate (Bicitra) 30 ml TID PO Last administered on 06/18/18 08:58; Admin Dose 30 ML; Start 06/06/18 at 13:00 Metoprolol Tartrate (Lopressor) 75 mg Q8 GTB Last administered on 06/17/18 22:09; Admin Dose 75 MG; Start 06/08/18 at 14:00 Bumetanide (Bumex) 1 mg BID DIURETICS GTB Last administered on 06/18/18 06:05; Admin Dose 1 MG; Start 06/11/18 at 18:00 Amiodarone HCl (Cordarone) 200 mg Q12 PO Last administered on 06/18/18 08:58; Admin Dose 200 MG; Start 06/12/18 at 21:00 Collagenase (Santyl) 1 applic PRN PRN TOP WHEN SOILED; Start 06/13/18 at 01:00 Nystatin (Nystatin Powder) 1 applic BID TOP Last administered on 06/18/18at 08:59; Admin Dose 1 APPLIC; Start 06/13/18 at 14:00 Vancomycin HCl (Vancomycin Oral Syringe) 250 mg BID GTB Last administered on 06/18/18at 08:59; Admin Dose 250 MG; Start 06/15/18 at 09:00; Stop 06/22/18 at 08:59 Vancomycin HCl (Vancomycin Oral Syringe) 250 mg DAILY GTB ; Start 06/22/18 at 09:00; Stop 06/29/18 at 08:59 Vancomycin HCl (Vancomycin Oral Syringe) 250 mg Q48H GTB ; Start 06/29/18 at 14:00; Stop 07/06/18 at 13:59 Epoetin Zen-epbx (RETACRIT(esrd)) 20,000 unit Tu@1700 SC Last administered on 06/16/18at 20:13; Admin Dose 20,000 UNIT; Start 06/16/18 at 18:30 Amikacin Sulfate (Amikacin Iv Per Pharmacy) AMIKACIN PER PHARMACY NOTE XX ; Sta rt 06/17/18 at 11:30; Stop 06/22/18 at 11:29 Amlodipine Besylate (Norvasc) 5 mg DAILY PO Last administered on 06/18/18at 08:58; Admin Dose 5 MG; Start 06/17/18 at 11:30 Amikacin Sulfate 350 mg/Sodium Chloride 101.4 ml @ 102 mls/hr Q36H IVPB Last administered on 06/17/18at 14:34; Admin Dose 102 MLS/HR; Start 06/17/18 at 14:00; Stop 06/22/18 at 13:59 ELOISA LAURA June 18, 2018 11:19
[2018-06-18] MEDS ORDERED: POTASSIUM CHLORIDE (SR) 20 MEQ TAB PO STA (11:23)
--- NOTE | 2018-06-18 11:27 | PN ---
Date/Time of Note Date/Time of Note DATE: 06/18/18 TIME: 11:20 Assessment/Plan VTE Prophylaxis Risk score (from Ns)>0 risk: 3 SCD applied (from Ns): Yes SCD contraindicated: other Pharmacological prophylaxis: other Lines/Catheters IV Catheter Type (from [facility]): PICC Line Central line still needed: Yes Urinary Cath still in place: Yes Reason Cath still needed: urinary retention Assessment/Plan Assessment/Plan Hypokalemia - replace k; AM bmp - Acute abdominal pain - CT showed Air-fluid levels are seen throughout the small bowel and colon. Consider mild ileus versus enterocolitis. - NPO/ IVF - per GI - cont to monitor -Atrial fibrillation was rapid ventricular response, s/p amiodarone drip. Rate is well controlled on p.o. amiodarone and metoprolol. - Dr. Scanlon is following in cardiology consultation. -Septic shock secondary to urinary tract infection, anterior neck soft tissue infection, and C. difficile colitis, resolving. - Continue antibiotics per ID. Dr. Brian Doyle is following in infection disease consultation. -Acute respiratory failure requiring intubation and ventilatory support. - Dr. Lambert is following in pulmonology consultation. -S/p tracheostomy on 05/29/18. -Acute kidney injury on chronic kidney disease. Started on HD this admission. - Dr. Mckeon is following in nephrology consultation. -Anemia of chronic inflammation, stool for OB is negative, status post blood transfusion. Continue Epogen. -Metabolic acidosis, resolved. -Acute diastolic congestive heart failure. -Paroxysmal atrial fibrillation -COPD -Dysphagia with PEG. -G-tube mild malfunction, changed by GI Dr. Carolina is following in gastroenterology consultation. -Obesity- weight management Patient is seen in collaboration with Dr Eisenberg. dw staff Result Diagram: 06/18/18 0601 06/18/18 0600 Results 24hrs Laboratory Tests Test 06/17/18 11:45 06/18/18 06:00 06/18/18 06:01 Lab Scanned Report REFERENCE LAB Sodium Level 138 Potassium Level 3.3 L Chloride Level 102 Carbon Dioxide Level 25 Anion Gap 11 Blood Urea Nitrogen 63 H Creatinine 1.79 H Est Glomerular Filtrat Rate mL/min Glucose Level 100 Calcium Level 9.3 White Blood Count 11.4 H Red Blood Count 2.06 L Hemoglobin 7.0 L Hematocrit 22.9 L Mean Corpuscular Volume 111.2 H Mean Corpuscular Hemoglobin 34.0 H Mean Corpuscular Hemoglobin Concent 30.6 L Red Cell Distribution Width 25.0 H Platelet Count 263 Mean Platelet Volume 9.9 Immature Granulocytes % 0.800 H Neutrophils % 82.4 H Lymphocytes % 8.0 L Monocytes % 4.5 Eosinophils % 4.2 Basophils % 0.1 Nucleated Red Blood Cells % 0.0 Immature Granulocytes # 0.090 H Neutrophils # 9.4 H Lymphocytes # 0.9 Monocytes # 0.5 Eosinophils # 0.5 Basophils # 0.0 Nucleated Red Blood Cells # 0.0 Subjective 24 Hr Interval Summary Free Text/Dictation Leukocytosis; afebrile CR 1.79 today refuses ADLs at times no new events reported last night dw staff Subjective hx not possible: pt non-verbal Constitutional: requiring IVF Exam/Review of Systems Exam Vitals Vital Signs Date Temp Pulse Resp B/P (MAP) Pulse Ox O2 O2 Flow FiO2 Time Delivery Rate 06/18/18 68 20 98 30 09:10 06/18/18 98.7 115/58 Trach 07:46 (77) Collar Intake and Output 06/17/18 06/17/18 06/18/18 1515:00 23:00 07:00 IntakeIntake Total 1230 ml OutputOutput Total 800 ml BalanceBalance 430 ml Constitutional: alert, non-verbal Psych: nl mood/affect Eyes: nl lids, nl sclera ENMT: nl external ears & nose Neck: non-tender, other (trach intact) Respiratory: clear to auscultation Cardiovascular: nl pulses, other (s1s2) Gastrointestinal: soft, other (gt inatct) Musculoskeletal: muscle weakness, range of motion Extremities: normal pulses Neurological: confused Lymph: nontender Results Results 24hrs Laboratory Tests Test 06/17/18 11:45 06/18/18 06:00 06/18/18 06:01 Lab Scanned Report REFERENCE LAB Sodium Level 138 Potassium Level 3.3 L Chloride Level 102 Carbon Dioxide Level 25 Anion Gap 11 Blood Urea Nitrogen 63 H Creatinine 1.79 H Est Glomerular Filtrat Rate mL/min Glucose Level 100 Calcium Level 9.3 White Blood Count 11.4 H Red Blood Count 2.06 L Hemoglobin 7.0 L Hematocrit 22.9 L Mean Corpuscular Volume 111.2 H Mean Corpuscular Hemoglobin 34.0 H Mean Corpuscular Hemoglobin Concent 30.6 L Red Cell Distribution Width 25.0 H Platelet Count 263 Mean Platelet Volume 9.9 Immature Granulocytes % 0.800 H Neutrophils % 82.4 H Lymphocytes % 8.0 L Monocytes % 4.5 Eosinophils % 4.2 Basophils % 0.1 Nucleated Red Blood Cells % 0.0 Immature Granulocytes # 0.090 H Neutrophils # 9.4 H Lymphocytes # 0.9 Monocytes # 0.5 Eosinophils # 0.5 Basophils # 0.0 Nucleated Red Blood Cells # 0.0 Medications Medication Current Medications IV Flush (NS 10 ml) 10 ml PRN IV ; Start 05/06/18 at 20:30 Ascorbic Acid (Vitamin C) 500 mg DAILY GTB Last administered on 06/18/18 08:58; Admin Dose 500 MG; Start 05/07/18 at 09:00 Albuterol/ Ipratropium (Duoneb) 3 ml Q2H RESP THERAPY PRN HHN SHORTNESS OF BREATH; Start 05/06/18 at 23:30 Zinc Sulfate (Zinc Sulfate) 220 mg DAILY GTB Last administered on 06/18/18 08:57; Admin Dose 220 MG; Start 05/07/18 at 09:00 Ondansetron HCl (Zofran Tab) 4 mg Q6H PRN GTB NAUSEA AND/OR VOMITING Last administered on 05/31/18at 16:47; Admin Dose 4 MG; Start 05/07/18 at 00:15 Multivitamins (Multivitamin) 30 ml DAILY GTB Last administered on 06/18/18 08:58; Admin Dose 30 ML; Start 05/07/18 at 09:00 Miscellaneous Information (Pending Santyl Order For Wound Care) This patient goldman... PRN PRN XX WOUND CARE; Start 05/09/18 at 17:00 Spironolactone (Aldactone) 50 mg DAILY GTB Last administered on 06/18/18 08:58; Admin Dose 50 MG; Start 05/21/18 at 09:00 Famotidine (Pepcid) 20 mg DAILY PEG Last administered on 06/18/18 08:58; Admin Dose 20 MG; Start 05/23/18 at 09:00 Morphine Sulfate (morphine) 6 mg Q4H PRN PEG SEVERE PAIN LEVEL 7-10 Last adm inistered on 06/17/18 22:10; Admin Dose 6 MG; Start 05/22/18 at 17:00 Albumin Human 100 ml @ 100 mls/hr DURING DIALYSIS PRN IV hypotension on hd Last administered on 05/29/18 14:49; Admin Dose 100 MLS/HR; Start 05/27/18 at 07:30 Cholestyramine Resin (Questran Light) 4 gm 0600,1200,1800,2300 PO Last administered on 06/18/18 06:07; Admin Dose 4 GM; Start 05/27/18 at 18:00 Lorazepam (Ativan) 0.5 mg Q4H PRN IV ANXIETY; Start 05/30/18 at 12:00 Acetaminophen (Tylenol Tab) 650 mg Q4H PRN PO MILD PAIN(1-3)OR ELEVATED TEMP Last administered on 06/10/18 21:44; Admin Dose 650 MG; Start 05/31/18 at 13:00 Metoclopramide HCl (Reglan) 5 mg Q6 IV Last administered on 06/18/18 06:05; Admin Dose 5 MG; Start 05/31/18 at 13:00 Collagenase (Santyl) 1 applic DAILY TOP Last administered on 06/18/18 08:57; Admin Dose 1 APPLIC; Start 06/01/18 at 09:00 Clonidine (Catapres) 0.1 mg Q6H PRN PO ELEVATED BLOOD PRESSURE Last administered on 06/17/18 05:59; Admin Dose 0.1 MG; Start 06/03/18 at 03:30 Citric Acid/ Sodium Citrate (Bicitra) 30 ml TID PO Last administered on 06/18/18 08:58; Admin Dose 30 ML; Start 06/06/18 at 13:00 Metoprolol Tartrate (Lopressor) 75 mg Q8 GTB Last administered on 06/17/18 22: 09; Admin Dose 75 MG; Start 06/08/18 at 14:00 Bumetanide (Bumex) 1 mg BID DIURETICS GTB Last administered on 06/18/18 06:05; Admin Dose 1 MG; Start 06/11/18 at 18:00 Amiodarone HCl (Cordarone) 200 mg Q12 PO Last administered on 06/18/18 08:58; Admin Dose 200 MG; Start 06/12/18 at 21:00 Collagenase (Santyl) 1 applic PRN PRN TOP WHEN SOILED; Start 06/13/18 at 01:00 Nystatin (Nystatin Powder) 1 applic BID TOP Last administered on 06/18/18at 08:59; Admin Dose 1 APPLIC; Start 06/13/18 at 14:00 Vancomycin HCl (Vancomycin Oral Syringe) 250 mg BID GTB Last administered on 06/18/18 08:59; Admin Dose 250 MG; Start 06/15/18 at 09:00; Stop 06/22/18 at 08:59 Vancomycin HCl (Vancomycin Oral Syringe) 250 mg DAILY GTB ; Start 06/22/18 at 09:00; Stop 06/29/18 at 08:59 Vancomycin HCl (Vancomycin Oral Syringe) 250 mg Q48H GTB ; Start 06/29/18 at 14:00; Stop 07/06/18 at 13:59 Epoetin Ezn-epbx (RETACRIT(esrd)) 20,000 unit Tu@1700 SC Last administered on 06/16/18at 20:13; Admin Dose 20,000 UNIT; Start 06/16/18 at 18:30 Amikacin Sulfate (Amikacin Iv Per Pharmacy) AMIKACIN PER PHARMACY NOTE XX ; Start 06/17/18 at 11:30; Stop 06/22/18 at 11:29 Amlodipine Besylate (Norvasc) 5 mg DAILY PO Last administered on 06/18/18at 08:58; Admin Dose 5 MG; Start 06/17/18 at 11:30 Amikacin Sulfate 350 mg/Sodium Chloride 101.4 ml @ 102 mls/hr Q36H IVPB Last administered on 06/17/18at 14:34; Admin Dose 102 MLS/HR; Start 06/17/18 at 14:00; Stop 06/22/18 at 13:59 KERON MORAN June 18, 2018 11:27
--- NOTE | 2018-06-18 12:06 | CONS ---
Assessment/Plan Assessment/Plan Hospital Course (Demo Recall) Septic as well as hemorrhagic shock-resolved Acute respiratory failure status post intubation and repeat tracheostomy Acute blood loss anemia History of respiratory failure status post decannulation Preserved ejection fraction echocardiogram 05/10/2018 Paroxysmal atrial fibrillation Acute kidney injury Hypertension -Patient with paroxysmal atrial fibrillation, has remained sinus with beta-bl ocker and amiodarone -Blood pressure trend improved on amlodipine, titrate as needed -Vent management as per pulmonary -Fluid management and electrolytes as per renal -Antibiotics as per infectious disease -No anticoagulation given recurrent anemia requiring blood transfusions Consultation Date/Type/Reason Admit Date/Time May 06, 2018 at 17:38 Initial Consult Date 05/10/18 Type of Consult Cardiology Requesting Provider: ROLAND GIRON MD Date/Time of Note DATE: 06/18/18 TIME: 12:05 24 HR Interval Summary Free Text/Dictation No shortness of breath, palpitations Exam/Review of Systems Vital Signs Vitals Vital Signs Date Temp Pulse Resp B/P (MAP) Pulse Ox O2 O2 Flow FiO2 Time Delivery Rate 06/18/18 99.0 75 24 130/60 99 Trach 11:43 (83) Collar 06/18/18 30 09:10 Intake and Output 06/17/18 06/17/18 06/18/18 1515:00 23:00 07:00 IntakeIntake Total 1230 ml OutputOutput Total 800 ml BalanceBalance 430 ml Exam Constitutional: alert, oriented (No apparent distress) Head: normocephalic Respiratory: other (Coarse breath sounds bilaterally, no wheezing) Cardiovascular: regular rate and rhythm (S1-S2 heard) Gastrointestinal: soft, non-tender, bowel sounds Extremities: edema Labs Result Diagram: 06/18/18 0601 06/18/18 0600 Results 24hrs Laboratory Tests Test 06/18/18 06:00 06/18/18 06:01 Sodium Level 138 Potassium Level 3.3 L Chloride Level 102 Carbon Dioxide Level 25 Anion Gap 11 Blood Urea Nitrogen 63 H Creatinine 1.79 H Est Glomerular Filtrat Rate mL/min Glucose Level 100 Calcium Level 9.3 White Blood Count 11.4 H Red Blood Count 2.06 L Hemoglobin 7.0 L Hematocrit 22.9 L Mean Corpuscular Volume 111.2 H Mean Corpuscular Hemoglobin 34.0 H Mean Corpuscular Hemoglobin Concent 30.6 L Red Cell Distribution Width 25.0 H Platelet Count 263 Mean Platelet Volume 9.9 Immature Granulocytes % 0.800 H Neutrophils % 82.4 H Lymphocytes % 8.0 L Monocytes % 4.5 Eosinophils % 4.2 Basophils % 0.1 Nucleated Red Blood Cells % 0.0 Immature Granulocytes # 0.090 H Neutrophils # 9.4 H Lymphocytes # 0.9 Monocytes # 0.5 Eosinophils # 0.5 Basophils # 0.0 Nucleated Red Blood Cells # 0.0 Medications Medications Current Medications IV Flush (NS 10 ml) 10 ml PRN IV ; Start 05/06/18 at 20:30 Ascorbic Acid (Vitamin C) 500 mg DAILY GTB Last administered on 06/18/18 08:58; Admin Dose 500 MG; Start 05/07/18 at 09:00 Albuterol/ Ipratropium (Duoneb) 3 ml Q2H RESP THERAPY PRN HHN SHORTNESS OF BREATH; Start 05/06/18 at 23:30 Zinc Sulfate (Zinc Sulfate) 220 mg DAILY GTB Last administered on 06/18/18 08:57; Admin Dose 220 MG; Start 05/07/18 at 09:00 Ondansetron HCl (Zofran Tab) 4 mg Q6H PRN GTB NAUSEA AND/OR VOMITING Last administered on 05/31/18 16:47; Admin Dose 4 MG; Start 05/07/18 at 00:15 Multivitamins (Multivitamin) 30 ml DAILY GTB Last administered on 06/18/18 08:58; Admin Dose 30 ML; Start 05/07/18 at 09:00 [facility] This patient goldman... PRN PRN XX WOUND CARE; Start 05/09/18 at 17:00 Spironolactone (Aldactone) 50 mg DAILY GTB Last administered on 06/18/18 08:58; Admin Dose 50 MG; Start 05/21/18 at 09:00 Famotidine (Pepcid) 20 mg DAILY PEG Last administered on 06/18/18 08:58; Admin Dose 20 MG; Start 05/23/18 at 09:00 Morphine Sulfate (morphine) 6 mg Q4H PRN PEG SEVERE PAIN LEVEL 7-10 Last administered on 06/17/18 22:10; Admin Dose 6 MG; Start 05/22/18 at 17:00 Albumin Human 100 ml @ 100 mls/hr DURING DIALYSIS PRN IV hypotension on hd Last administered on 05/29/18 14:49; Admin Dose 100 MLS/HR; Start 05/27/18 at 07:30 Cholestyramine Resin (Questran Light) 4 gm 0600,1200,1800,2300 PO Last administered on 06/18/18 11:22; Admin Dose 4 GM; Start 05/27/18 at 18:00 Lorazepam (Ativan) 0.5 mg Q4H PRN IV ANXIETY; Start 05/30/18 at 12:00 Acetaminophen (Tylenol Tab) 650 mg Q4H PRN PO MILD PAIN(1-3)OR ELEVATED TEMP Last administered on 06/10/18 21:44; Admin Dose 650 MG; Start 05/31/18 at 13:00 Metoclopramide HCl (Reglan) 5 mg Q6 IV Last administered on 06/18/18 11:22; Admin Dose 5 MG; Start 05/31/18 at 13:00 Collagenase (Santyl) 1 applic DAILY TOP Last administered on 06/18/18 08:57; Admin Dose 1 APPLIC; Start 06/01/18 at 09:00 Clonidine (Catapres) 0.1 mg Q6H PRN PO ELEVATED BLOOD PRESSURE Last administered on 06/17/18 05:59; Admin Dose 0.1 MG; Start 06/03/18 at 03:30 Citric Acid/ Sodium Citrate (Bicitra) 30 ml TID PO Last administered on 06/18/18 11:21; Admin Dose 30 ML; Start 06/06/18 at 13:00 Metoprolol Tartrate (Lopressor) 75 mg Q8 GTB Last administered on 06/17/18 22:09; Admin Dose 75 MG; Start 06/08/18 at 14:00 Bumetanide (Bumex) 1 mg BID DIURETICS GTB Last administered on 06/18/18 06:05; Admin Dose 1 MG; Start 06/11/18 at 18:00 Amiodarone HCl (Cordarone) 200 mg Q12 PO Last administered on 06/18/18 08:58; Admin Dose 200 MG; Start 06/12/18 at 21:00 Collagenase (Santyl) 1 applic PRN PRN TOP WHEN SOILED; Start 06/13/18 at 01:00 Nystatin (Nystatin Powder) 1 applic BID TOP Last administered on 06/18/18at 08:59; Admin Dose 1 APPLIC; Start 06/13/18 at 14:00 Vancomycin HCl (Vancomycin Oral Syringe) 250 mg BID GTB Last administered on 06/18/18at 08:59; Admin Dose 250 MG; Start 06/15/18 at 09:00; Stop 06/22/18 at 08:59 Vancomycin HCl (Vancomycin Oral Syringe) 250 mg DAILY GTB ; Start 06/22/18 at 09:00; Stop 06/29/18 at 08:59 Vancomycin HCl (Vancomycin Oral Syringe) 250 mg Q48H GTB ; Start 06/29/18 at 14:00; Stop 07/06/18 at 13:59 Epoetin Zen-epbx (RETACRIT(esrd)) 20,000 unit Tu@1700 SC Last administered on 06/16/18at 20:13; Admin Dose 20,000 UNIT; Start 06/16/18 at 18:30 Amikacin Sulfate (Amikacin Iv Per Pharmacy) AMIKACIN PER PHARMACY NOTE XX ; Start 06/17/18 at 11:30; Stop 06/22/18 at 11:29 Amlodipine Besylate (Norvasc) 5 mg DAILY PO Last administered on 06/18/18at 08:58; Admin Dose 5 MG; Start 06/17/18 at 11:30 Amikacin Sulfate 350 mg/Sodium Chloride 101.4 ml @ 102 mls/hr Q36H IVPB Last administered on 06/17/18at 14:34; Admin Dose 102 MLS/HR; Start 06/17/18 at 14:00; Stop 06/22/18 at 13:59 Evangelista Scanlon DO June 18, 2018 12:06
--- NOTE | 2018-06-18 12:11 | CONS ---
Assessment/Plan Assessment/Plan Assessment/Plan (Daily) 73 yo female Interval hx: Pt alert. Is having abdominal pain, tender to palpitation. 1. ABD pain -CT of abd 2. Renal failure.- on HD 3. Vent dependent resp failure 4. Chronic obstructive pulmonary disease. 5. Bipolar. 6. Paroxysmal atrial fibrillation. 7. Anemia of chronic disease. 8. CHF 9. Diarrhea 11. Diarrhea -s/p c diff colitis -taper off of vanco 12. H/O deep esophageal ulcer 13. Dysphagia with g tube 14. Anemia of chronic disease 15. UTI with positive cx CT of abd/pelvis 06/16 1. Nonspecific bibasilar ground-glass densities and the airspace disease, suggesting bilateral pneumonia versus pulmonary edema. 2. Atrophy of the left kidney. 2.3 cm left renal cyst. The right kidney demonstrates compensatory hypertrophy. No calculus or hydronephrosis in either kidney. 3. Atherosclerosis of the aorta. 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 No leak or rupture. 4. Mild nonspecific ascites in the pelvis. 5. Air-fluid levels are seen throughout the small bowel and colon. Consider mild ileus versus enterocolitis. Patient has good bowel movement and there is no evidence of emesis or nausea PLAN: Ok to resume tube feeds Continue with reglan and pepcid Taper vanco to off Monitor tube feeds residuals q 6 hours Monitor hemoglobin hematocrit, there is a significant drop in her hematocrit Consultation Date/Type/Reason Admit Date/Time May 06, 2018 at 17:38 Initial Consult Date 05/10/18 Requesting Provider: ROLAND GIRON MD Date/Time of Note DATE: 06/18/18 TIME: 12:10 24 HR Interval Summary Free Text/Dictation Patient complains of abdominal pain No gross GI bleeding Exam/Review of Systems Exam Vitals Vital Signs Date Temp Pulse Resp B/P (MAP) Pulse Ox O2 O2 Flow FiO2 Time Delivery Rate 06/18/18 99.0 75 24 130/60 99 Trach 11:43 (83) Collar 06/18/18 30 09:10 Intake and Output 06/17/18 06/17/18 06/18/18 1515:00 23:00 07:00 IntakeIntake Total 1230 ml OutputOutput Total 800 ml BalanceBalance 430 ml Constitutional: alert, oriented, well developed Psych: no complaints, nl mood/affect Head: normocephalic, atraumatic Eyes: nl conjunctiva, EOMI, nl lids, nl sclera, PERRL ENMT: nl external ears & nose, nl lips & teeth, nl nasal mucosa & septum Neck: supple, non-tender Respiratory: clear to auscultation, normal air movement Cardiovascular: regular rate and rhythm, nl pulses Gastrointestinal: soft, nl liver, spleen, non-tender Musculoskeletal: nl extremities to inspection, nl gait and stance Extremities: normal pulses Neurological: [employer] II-XII intact, nl mental status, nl speech, nl strength Skin: nl turgor; No rash or lesions Lymph: nl lymph nodes Results Result Diagram: 06/18/18 0601 06/18/18 0600 Results 24hrs Laboratory Tests Test 06/18/18 06:00 06/18/18 06:01 Sodium Level 138 Potassium Level 3.3 L Chloride Level 102 Carbon Dioxide Level 25 Anion Gap 11 Blood Urea Nitrogen 63 H Creatinine 1.79 H Est Glomerular Filtrat Rate mL/min Glucose Level 100 Calcium Level 9.3 White Blood Count 11.4 H Red Blood Count 2.06 L Hemoglobin 7.0 L Hematocrit 22.9 L Mean Corpuscular Volume 111.2 H Mean Corpuscular Hemoglobin 34.0 H Mean Corpuscular Hemoglobin Concent 30.6 L Red Cell Distribution Width 25.0 H Platelet Count 263 Mean Platelet Volume 9.9 Immature Granulocytes % 0.800 H Neutrophils % 82.4 H Lymphocytes % 8.0 L Monocytes % 4.5 Eosinophils % 4.2 Basophils % 0.1 Nucleated Red Blood Cells % 0.0 Immature Granulocytes # 0.090 H Neutrophils # 9.4 H Lymphocytes # 0.9 Monocytes # 0.5 Eosinophils # 0.5 Basophils # 0.0 Nucleated Red Blood Cells # 0.0 Medications Medication Current Medications IV Flush (NS 10 ml) 10 ml PRN IV ; Start 05/06/18 at 20:30 Ascorbic Acid (Vitamin C) 500 mg DAILY GTB Last administered on 06/18/18at 08:58; Admin Dose 500 MG; Start 05/07/18 at 09:00 Albuterol/ Ipratropium (Duoneb) 3 ml Q2H RESP THERAPY PRN HHN SHORTNESS OF BREATH; Start 05/06/18 at 23:30 Zinc Sulfate (Zinc Sulfate) 220 mg DAILY GTB Last administered on 06/18/18 08:57; Admin Dose 220 MG; Start 05/07/18 at 09:00 Ondansetron HCl (Zofran Tab) 4 mg Q6H PRN GTB NAUSEA AND/OR VOMITING Last administered on 05/31/18 16:47; Admin Dose 4 MG; Start 05/07/18 at 00:15 Multivitamins (Multivitamin) 30 ml DAILY GTB Last administered on 06/18/18 08:58; Admin Dose 30 ML; Start 05/07/18 at 09:00 Miscellaneous Information (Pending Santyl Order For Wound Care) This patient goldman... PRN PRN XX WOUND CARE; Start 05/09/18 at 17:00 Spironolactone (Aldactone) 50 mg DAILY GTB Last administered on 06/18/18 08:58; Admin Dose 50 MG; Start 05/21/18 at 09:00 Famotidine (Pepcid) 20 mg DAILY PEG Last administered on 06/18/18 08:58; Admin Dose 20 MG; Start 05/23/18 at 09:00 Morphine Sulfate (morphine) 6 mg Q4H PRN PEG SEVERE PAIN LEVEL 7-10 Last administered on 06/17/18 22:10; Admin Dose 6 MG; Start 05/22/18 at 17:00 Albumin Human 100 ml @ 100 mls/hr DURING DIALYSIS PRN IV hypotension on hd Last administered on 05/29/18 14:49; Admin Dose 100 MLS/HR; Start 05/27/18 at 07:30 Cholestyramine Resin (Questran Light) 4 gm 0600,1200,1800,2300 PO Last administered on 06/18/18 11:22; Admin Dose 4 GM; Start 05/27/18 at 18:00 Lorazepam (Ativan) 0.5 mg Q4H PRN IV ANXIETY; Start 05/30/18 at 12:00 Acetaminophen (Tylenol Tab) 650 mg Q4H PRN PO MILD PAIN(1-3)OR ELEVATED TEMP Last administered on 06/10/18 21:44; Admin Dose 650 MG; Start 05/31/18 at 13:00 Metoclopramide HCl (Reglan) 5 mg Q6 IV Last administered on 06/18/18 11:22; Admin Dose 5 MG; Start 05/31/18 at 13:00 Collagenase (Santyl) 1 applic DAILY TOP Last administered on 06/18/18 08:57; Admin Dose 1 APPLIC; Start 06/01/18 at 09:00 Clonidine (Catapres) 0.1 mg Q6H PRN PO ELEVATED BLOOD PRESSURE Last administered on 06/17/18 05:59; Admin Dose 0.1 MG; Start 06/03/18 at 03:30 Citric Acid/ Sodium Citrate (Bicitra) 30 ml TID PO Last administered on 06/18/18 11:21; Admin Dose 30 ML; Start 06/06/18 at 13:00 Metoprolol Tartrate (Lopressor) 75 mg Q8 GTB Last administered on 06/17/18 22:09; Admin Dose 75 MG; Start 06/08/18 at 14:00 Bumetanide (Bumex) 1 mg BID DIURETICS GTB Last administered on 06/18/18 06:05; Admin Dose 1 MG; Start 06/11/18 at 18:00 Amiodarone HCl (Cordarone) 200 mg Q12 PO Last administered on 06/18/18 08:58; Admin Dose 200 MG; Start 06/12/18 at 21:00 Collagenase (Santyl) 1 applic PRN PRN TOP WHEN SOILED; Start 06/13/18 at 01:00 Nystatin (Nystatin Powder) 1 applic BID TOP Last administered on 06/18/18 08:59; Admin Dose 1 APPLIC; Start 06/13/18 at 14:00 Vancomycin HCl (Vancomycin Oral Syringe) 250 mg BID GTB Last administered on 06/18/18 08:59; Admin Dose 250 MG; Start 06/15/18 at 09:00; Stop 06/22/18 at 08:59 Vancomycin HCl (Vancomycin Oral Syringe) 250 mg DAILY GTB ; Start 06/22/18 at 09:00; Stop 06/29/18 at 08:59 Vancomycin HCl (Vancomycin Oral Syringe) 250 mg Q48H GTB ; Start 06/29/18 at 14:00; Stop 07/06/18 at 13:59 Epoetin Zen-epbx (RETACRIT(esrd)) 20,000 unit Tu@1700 SC Last administered on 06/16/18 20:13; Admin Dose 20,000 UNIT; Start 06/16/18 at 18:30 Amikacin Sulfate (Amikacin Iv Per Pharmacy) AMIKACIN PER PHARMACY NOTE XX ; Start 06/17/18 at 11:30; Stop 06/22/18 at 11:29 Amlodipine Besylate (Norvasc) 5 mg DAILY PO Last administered on 06/18/18at 08:58; Admin Dose 5 MG; Start 06/17/18 at 11:30 Amikacin Sulfate 350 mg/Sodium Chloride 101.4 ml @ 102 mls/hr Q36H IVPB Last administered on 06/17/18at 14:34; Admin Dose 102 MLS/HR; Start 06/17/18 at 14:00; Stop 06/22/18 at 13:59 QUINTEN UMAÑA MD June 18, 2018 12:11
[2018-06-18] MEDS: morphine LIQ (10 MG/5 ML) CUP PEG PRN (13:09)
--- NOTE | 2018-06-18 13:17 | CONS ---
[facility] HCIS Consult Follow-up Patient Name: Zuly Mcwilliams Unit Number: [id number] Date of : 1945 Patient Status: Admitted Inpatient Attending Doctor: Roland Giron MD Edit: CELESTINE SANCHEZ M.D. on 06/18/18 @ 20:28 Daniel: I discussed the management with JADE Joshi and agree Assessment/Plan Assessment/Plan Hospital Course (Demo Recall) # sepsis, leukocytosis, SIRS, pulmonary, cardiac - recurrent leukocytosis due to recurrent UTI -improving - s/p septic shock due to pneumonia and C diff colitis - acute on chronic hypoxic respiratory failure, persistent - s/p reintubation 05/12/2018 - s/p re-do trach on 05/29/2018 - recurrent colonization of the anterior neck wound with ESBL+kleb, MRSA, GBS, corynebacteria on 05/06/2018 -s/p meropenem - h/o pneumonia vs. colonization of the airway by pseudomonas and ESBL+klebsiella - h/o possible, recurrent HCAP due to pseudomonas and ESBL+klebsiella - h/o recurrent HCAP due to MRSA and Enterobacter (culture of tracheal aspirate on 07/16/2017 that was collected at [facility]) . Pt took vancomycin and ceftazidime - h/o decannulation prior to admission - h/o tracheostomy on 06/11/2017 - h/o SIRS from UGIB in 2018 - h/o thoracentesis on 07/18/2017, transudative (protein <2, LDH 279) - h/o bleeding from the trach site in 2018 - h/o septic shock due to pneumonia, ARDS, bacteremia, fungemia in 2018 - h/o ARDS in 2018 - h/o smoking - COPD - h/o ILD per medical record - h/o PAF, improved # GI - possible ileus or enterocolitis on CT abd/pel 06/15/2018 - C diff colitis, diagnosed on 05/11/2018. IV metronidazole (05/11/2018-05/29/2018; restart 05/30/2018-06/05/18), pGT vancomycin induction followed by taper (05/11/2018-) - h/o intermittent diarrhea, Pt had multiple negative C. diff tests at [facility] at OSH in the past; none was positive until 05/11/2018 - dysphagia - h/o PEG placement 06/13/2018 - protein calorie malnutrition - h/o coffee ground emesis/UGIB on 12/23/2017 due to deep ulceration of distal esophagus and gastritis on EGD 12/26/2017. No e/o H. pylori - h/o possible appendicitis on CT on 11/22/2017, Pt took ertapenem (11/24/2017-12/01/2017) - h/o extensive adhesions lower abdominal and pelvis between small bowel to each other and to colon and to abdominal wall, anterior pelvic wall chronic abscess secondary to probably an old perforated diverticulitis, torsion of small bowel around these dense adhesion causing multiple obstructive points - h/o laparoscopic exploration and extensive lysis of adhesions and drainage of anterior pelvic wall abscess 09/16/2017. Cultures were negative, no e/o malignancy. 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 Pt is on amikacin x 5 days (06/17/2018-06/21/2018) - UTI due to pseudomonas and ESBL+klebsiella on 06/09/2018, Pt took one dose of fosfomycin on 06/10/2018 and cipro 06/12-06/15/2018 - anasarca - started on HD on 05/15/2018, via Juan in R groin - recurrent NATHAN on CKD - 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 Her strain of CRE was sensitive to colistin, Avycaz, and Vabomere but resistant to Zerbaxa (reported on 05/19/2018) - Hyponatremia - Hyperkalemia, now hypokalemia - Metabolic acidosis - adrenal insufficiency - h/o vaginal bleed in 2018 - h/o colonization of urinary tract by ESBL+klebsiella, VRE - h/o recurrent, symptomatic UTI due to carbapenem-resistant kleb (MDR strain) per urine culture 10/04/17, 10/09/17, 10/21/2017, P took colistin (10/09/2017- 10/15/2017), fosfomycin for carbapenemase-producing klebsiella and VRE on 10/25/2017 and 10/28/2017 - h/o funguria - h/o urinary retention # fungemia, bacteremia 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; Pt declined surgery for MVR per outside medical records; TTE 07/01/17 did not mention any thrombus; s/p voriconazole (05/25/2017-08/01/2017) - h/o bacteremia due to MSSA and proteus s/p ceftriaxone; repeat blood cultures were negative on 06/14/2017 # musculoskeletal and dermatological - L hand pain - dry skin - chronic wound of LLE - h/o infection of wound of LLE - h/o debridement of wound of LLE on 08/06/2017 - h/o recurrent herpes labialis, Pt took acyclovir, valacyclovir - h/o Osler's nodes (eschar) of R toes with erythematous skin; desquamation of t he skin and open lacerations on R plantar foot. improved. Probable manifestation of endocarditis. Pt declined MRI on 08/06/2017 - h/o infection of R toes due to pseudomonas. coagulase negative Staph likely a colonizer - h/o intertrigo of the groin, resolved with nystatin powder - h/o scabies, locally crusted lesion over L scapula, s/p permethrin cream and pGT ivermectin on 08/11/2017, 08/12/2017, 08/19/2017. Repeat skin scraping on 08/21/2017 was negative for scabies # psych, neuro - decreased hearing b/l - s/p acute toxic metabolic encephalopathy - h/o critical illness polyneuropathy - anxiety/depression, bipolar d/o, seen by Psychiatry in the past - chronic pain syndrome - h/o medical non-compliance: she would refuse her medications, treatment and straight catheterization in 2018 # hematological, vascular - chronic anemia requiring blood transfusion intermittently - macrocytic anemia - aneurysmal dilatation of the distal aorta visualized on CT 06/15/2018 - PVD recommendations: - continue renally dosed amikacin for klebsiella in her urine culture (06/17/2018-06/21/2018), planned for 5 days - continue pGT vancomycin taper: 06/15/2018-06/21/2018 bid, 06/22-06/28: daily, 06/29-: q48hrs - continue enteric contact isolation Management d/w patient, JAYANT Bell and with Dr. Sanchez Consultation Date/Type/Reason Admit Date/Time May 06, 2018 at 17:38 Initial Consult Date 05/07/18 Type of Consult Infectious Disease Requesting Provider: ROLAND GIRON MD Date/Time of Note DATE: 06/18/18 TIME: 13:16 24 HR Interval Summary Free Text/Dictation C/o generalized pain ed to back with nausea but no vomiting. Mouths out "I don't feel well". Subjective hx not possible: pt non-verbal Exam/Review of Systems Exam Vitals Vital Signs Date Temp Pulse Resp B/P (MAP) Pulse Ox O2 O2 Flow FiO2 Time Delivery Rate 06/18/18 99.0 75 24 130/60 99 Trach 11:43 (83) Collar 06/18/18 30 09:10 Intake and Output 06/17/18 06/17/18 06/18/18 1515:00 23:00 07:00 IntakeIntake Total 1230 ml OutputOutput Total 800 ml BalanceBalance 430 ml Exam Constitutional: alert, well developed, non-verbal, frail, obese Psych: nl mood/affect Head: normocephalic, atraumatic Eyes: nl conjunctiva, nl lids, nl sclera ENMT: nl external ears & nose, nl nasal mucosa & septum, other (MM pink and moist with no thrush) Neck: other (+trach connected to ventilator support) Respiratory: diminished breath sounds Cardiovascular: regular rate and rhythm, nl pulses Gastrointestinal: soft, other (+GT; Flexiseal with liquid brown stool; +nonspec ific TTP) Genitourinary - Female: other (+Garza) Musculoskeletal: nl extremities to inspection; No swelling Neurological: other (non-verbal; nods to simple questions and mouths out words) Skin: nl turgor, other (intertrigo on perineal area which is covered with Calmoseptine; BLE SCDs in place; wounds - nurses notes and photos reviewed in chart) Results Result Diagram: 06/18/18 0601 06/18/18 0600 Results 24hrs Laboratory Tests Test 06/18/18 06:00 06/18/18 06:01 Sodium Level 138 Potassium Level 3.3 L Chloride Level 102 Carbon Dioxide Level 25 Anion Gap 11 Blood Urea Nitrogen 63 H Creatinine 1.79 H Est Glomerular Filtrat Rate mL/min Glucose Level 100 Calcium Level 9.3 White Blood Count 11.4 H Red Blood Count 2.06 L Hemoglobin 7.0 L Hematocrit 22.9 L Mean Corpuscular Volume 111.2 H Mean Corpuscular Hemoglobin 34.0 H Mean Corpuscular Hemoglobin Concent 30.6 L Red Cell Distribution Width 25.0 H Platelet Count 263 Mean Platelet Volume 9.9 Immature Granulocytes % 0.800 H Neutrophils % 82.4 H Lymphocytes % 8.0 L Monocytes % 4.5 Eosinophils % 4.2 Basophils % 0.1 Nucleated Red Blood Cells % 0.0 Immature Granulocytes # 0.090 H Neutrophils # 9.4 H Lymphocytes # 0.9 Monocytes # 0.5 Eosinophils # 0.5 Basophils # 0.0 Nucleated Red Blood Cells # 0.0 Medications Medication Current Medications IV Flush (NS 10 ml) 10 ml PRN IV ; Start 05/06/18 at 20:30 Ascorbic Acid (Vitamin C) 500 mg DAILY GTB Last administered on 06/18/18at 08:58; Admin Dose 500 MG; Start 05/07/18 at 09:00 Albuterol/ Ipratropium (Duoneb) 3 ml Q2H RESP THERAPY PRN HHN SHORTNESS OF BREATH; Start 05/06/18 at 23:30 Zinc Sulfate (Zinc Sulfate) 220 mg DAILY GTB Last administered on 06/18/18 08:57; Admin Dose 220 MG; Start 05/07/18 at 09:00 Ondansetron HCl (Zofran Tab) 4 mg Q6H PRN GTB NAUSEA AND/OR VOMITING Last administered on 05/31/18 16:47; Admin Dose 4 MG; Start 05/07/18 at 00:15 Multivitamins (Multivitamin) 30 ml DAILY GTB Last administered on 06/18/18 08: 58; Admin Dose 30 ML; Start 05/07/18 at 09:00 [facility] This patient goldman... PRN PRN XX WOUND CARE; Start 05/09/18 at 17:00 Spironolactone (Aldactone) 50 mg DAILY GTB Last administered on 06/18/18 08:58; Admin Dose 50 MG; Start 05/21/18 at 09:00 Famotidine (Pepcid) 20 mg DAILY PEG Last administered on 06/18/18 08:58; Admin Dose 20 MG; Start 05/23/18 at 09:00 Morphine Sulfate (morphine) 6 mg Q4H PRN PEG SEVERE PAIN LEVEL 7-10 Last administered on 06/18/18 13:09; Admin Dose 6 MG; Start 05/22/18 at 17:00 Albumin Human 100 ml @ 100 mls/hr DURING DIALYSIS PRN IV hypotension on hd Last administered on 05/29/18 14:49; Admin Dose 100 MLS/HR; Start 05/27/18 at 07:30 Cholestyramine Resin (Questran Light) 4 gm 0600,1200,1800,2300 PO Last adminis tered on 06/18/18 11:22; Admin Dose 4 GM; Start 05/27/18 at 18:00 Lorazepam (Ativan) 0.5 mg Q4H PRN IV ANXIETY; Start 05/30/18 at 12:00 Acetaminophen (Tylenol Tab) 650 mg Q4H PRN PO MILD PAIN(1-3)OR ELEVATED TEMP Last administered on 06/10/18 21:44; Admin Dose 650 MG; Start 05/31/18 at 13:00 Metoclopramide HCl (Reglan) 5 mg Q6 IV Last administered on 06/18/18 11:22; Admin Dose 5 MG; Start 05/31/18 at 13:00 Collagenase (Santyl) 1 applic DAILY TOP Last administered on 06/18/18 08:57; Admin Dose 1 APPLIC; Start 06/01/18 at 09:00 Clonidine (Catapres) 0.1 mg Q6H PRN PO ELEVATED BLOOD PRESSURE Last administered on 06/17/18 05:59; Admin Dose 0.1 MG; Start 06/03/18 at 03:30 Citric Acid/ Sodium Citrate (Bicitra) 30 ml TID PO Last administered on 06/18/18 11:21; Admin Dose 30 ML; Start 06/06/18 at 13:00 Metoprolol Tartrate (Lopressor) 75 mg Q8 GTB Last administered on 06/18/18 13:09; Admin Dose 75 MG; Start 06/08/18 at 14:00 Bumetanide (Bumex) 1 mg BID DIURETICS GTB Last administered on 06/18/18 06:05; Admin Dose 1 MG; Start 06/11/18 at 18:00 Amiodarone HCl (Cordarone) 200 mg Q12 PO Last administered on 06/18/18 08:58; Admin Dose 200 MG; Start 06/12/18 at 21:00 Collagenase (Santyl) 1 applic PRN PRN TOP WHEN SOILED; Start 06/13/18 at 01:00 Nystatin (Nystatin Powder) 1 applic BID TOP Last administered on 06/18/18 08:59; Admin Dose 1 APPLIC; Start 06/13/18 at 14:00 Vancomycin HCl (Vancomycin Oral Syringe) 250 mg BID GTB Last administered on 06/18/18 08:59; Admin Dose 250 MG; Start 06/15/18 at 09:00; Stop 06/22/18 at 08:59 Vancomycin HCl (Vancomycin Oral Syringe) 250 mg DAILY GTB ; Start 06/22/18 at 09:00; Stop 06/29/18 at 08:59 Vancomycin HCl (Vancomycin Oral Syringe) 250 mg Q48H GTB ; Start 06/29/18 at 14:00; Stop 07/06/18 at 13:59 Epoetin Zen-epbx (RETACRIT(esrd)) 20,000 unit Tu@1700 SC Last administered on 06/16/18at 20:13; Admin Dose 20,000 UNIT; Start 06/16/18 at 18:30 Amikacin Sulfate (Amikacin Iv Per Pharmacy) AMIKACIN PER PHARMACY NOTE XX ; Start 06/17/18 at 11:30; Stop 06/22/18 at 11:29 Amlodipine Besylate (Norvasc) 5 mg DAILY PO Last administered on 06/18/18at 08:58; Admin Dose 5 MG; Start 06/17/18 at 11:30 Amikacin Sulfate 350 mg/Sodium Chloride 101.4 ml @ 102 mls/hr Q36H IVPB Last administered on 06/17/18at 14:34; Admin Dose 102 MLS/HR; Start 06/17/18 at 14:00; Stop 06/22/18 at 13:59 LAURA JOSHI NP June 18, 2018 13:17
[2018-06-19] VITALS (23 sets, daily range): BP systolic 121–161; BP diastolic 59–76; PULSE 66–83; RESP 16–27
[2018-06-19] MEDS: AMIKACIN 350 MG in SOD CHLORIDE 0.9% 100 ML IVPB SCH (02:15)
[2018-06-19] MEDS: BUMETANIDE 1 MG TAB GTB SCH ×2 (05:17→17:21)
[2018-06-19] MEDS: METOCLOPRAMIDE 10 MG INJ IV SCH ×4 (05:18→23:13)
[2018-06-19] MEDS: METOPROLOL 25 MG TAB GTB SCH ×3 (05:18→21:08)
[2018-06-19] MEDS: CHOLESTYRAMINE (LIGHT) 4 GM PACKET PO SCH ×4 (05:19→23:13)
[2018-06-19] MEDS: COLLAGENASE 5 GM (UD JAR) TOP SCH (09:01)
[2018-06-19] MEDS: ZINC SULFATE 220 MG CAP GTB SCH (09:02)
[2018-06-19] MEDS: VANCOMYCIN HCL 250 MG/5ML POSYG GTB SCH ×2 (09:02→21:08)
[2018-06-19] MEDS: MULTIVITAMINS 30 ML CUP GTB SCH (09:02)
[2018-06-19] MEDS: NYSTATIN 30 GM POWDER BTL TOP SCH ×2 (09:02→21:09)
[2018-06-19] MEDS: FAMOTIDINE 20 MG TAB PEG SCH (09:02)
[2018-06-19] MEDS: CITRIC ACID/NA CITRATE 30 ML CUP PO SCH ×3 (09:02→21:07)
[2018-06-19] MEDS: SPIRONOLACTONE 25 MG TAB GTB SCH (09:02)
[2018-06-19] MEDS: AMIODARONE 200 MG TAB PO SCH ×2 (09:02→21:08)
[2018-06-19] MEDS: ASCORBIC ACID 500 MG TAB GTB SCH (09:02)
[2018-06-19] MEDS: BALSAM PERU/CASTOR OIL 60 GM TUBE TOP SCH ×2 (09:03→21:09)
[2018-06-19] MEDS: AMLODIPINE 5 MG TAB PO SCH (09:03)
--- NOTE | 2018-06-19 09:17 | PN ---
DATE: 06/19/2018 SUBJECTIVE: The patient is stable, no events overnight. No fevers, chills, nausea, or vomiting. OBJECTIVE: VITAL SIGNS: Blood pressure is 123/60, respirations 16, pulse 71, temperature 98.7. HEENT: Head is normocephalic. NECK: Supple. HEART: Regular rate. LUNGS: Show diminished breath sounds at the base. ABDOMEN: Soft, nontender to palpation without rebound or guarding. EXTREMITIES: Negative for clubbing, cyanosis, no edema. DERMATOLOGIC: No rashes. MUSCULOSKELETAL: No joint effusion. NEUROLOGIC: No change in exam. MEDICATIONS: The patient's medications have been reviewed. LABORATORY DATA: Reviewed. ASSESSMENT AND PLAN: 1. Nonoliguric acute kidney injury on top of chronic kidney disease stage IIIB/IV, with previous bas andrea creatinine of around 2 mg/dL. Etiology of acute kidney injury is secondary to acute tubular ne crosis. The patient is status post hemodialysis. Renal function stabilized. Continue current treat ment plan, supportive care, renally dose all medications. 2. Volume overload, improving. Continue current diuretic regimen. 3. Hypernatremia, improved. Continue free water flushes. 4. Hypokalemia. Continue to monitor and replete as needed. 5. Metabolic acidosis. Continue Bicitra. 6. Hypomagnesemia. Continue to monitor and replete. 7. Anemia. Monitor hemoglobin and hematocrit levels. We will give Epogen as needed. 8. Mineral bone disorder. Monitor calcium and phosphorus levels. 9. Ventilator-dependent respiratory failure. Vent settings and ABG was reviewed. Continue to monit or. 10. Sepsis, status post shock. The patient is completing antibiotic course. 11. Lower extremity wounds. Continue wound care. 12. Dysphagia. Continue tube feeding. 13. Encephalopathy. Continue to monitor. Dictated By: JEANA BANSAL DO NR/NTS Conf#: [id number] DID#: [id number] CC: QUINTEN UMAÑA MD; ROLAND GIRON MD;*EndCC*
--- NOTE | 2018-06-19 09:29 | PN ---
Date/Time of Note Date/Time of Note DATE: 06/19/18 TIME: 09:28 Assessment/Plan VTE Prophylaxis Risk score (from Ns)>0 risk: 7 SCD applied (from [facility] [place]): Yes SCD contraindicated: other Pharmacological prophylaxis: other Pharm contraindication: other Lines/Catheters IV Catheter Type (from [facility]): PICC Line Central line still needed: Yes Urinary Cath still in place: Yes Reason Cath still needed: urinary retention Assessment/Plan Assessment/Plan - Hypokalemia- resolved - Acute abdominal pain - CT showed Air-fluid levels are seen throughout the small bowel and colon. Consider mild ileus versus enterocolitis. - NPO/ IVF - per GI - cont to monitor -Atrial fibrillation was rapid ventricular response, s/p amiodarone drip. Rate is well controlled on p.o. amiodarone and metoprolol. - Dr. Scanlon is following in cardiology consultation. -Septic shock secondary to urinary tract infection, anterior neck soft tissue infection, and C. difficile colitis, resolving. - Continue antibiotics per ID. Dr. Brian Doyle is following in infection disease consultation. -Acute respiratory failure requiring intubation and ventilatory support. - Dr. Lambert is following in pulmonology consultation. -S/p tracheostomy on 05/29/18. -Acute kidney injury on chronic kidney disease. Started on HD this admission. - Dr. Mckeon is following in nephrology consultation. -Anemia of chronic inflammation, stool for OB is negative, status post blood transfusion. Continue Epogen. -Metabolic acidosis, resolved. -Acute diastolic congestive heart failure. -Paroxysmal atrial fibrillation -COPD -Dysphagia with PEG. -G-tube mild malfunction, changed by GI Dr. Carolina is following in gastroenterology consultation. -Obesity- weight management Patient is seen in collaboration with Dr Eisenberg. dw staff Result Diagram: 06/19/18 0554 06/19/18 0554 Results 24hrs Laboratory Tests Test 06/19/18 00:55 06/19/18 05:54 Amikacin Level Trough 6.4 White Blood Count 11.1 H Red Blood Count 2.11 L Hemoglobin 7.2 L Hematocrit 23.8 L Mean Corpuscular Volume 112.8 H Mean Corpuscular Hemoglobin 34.1 H Mean Corpuscular Hemoglobin Concent 30.3 L Red Cell Distribution Width 25.2 H Platelet Count 286 Mean Platelet Volume 10.0 Immature Granulocytes % 0.600 H Neutrophils % 82.7 H Lymphocytes % 8.2 L Monocytes % 4.6 Eosinophils % 3.8 Basophils % 0.1 Nucleated Red Blood Cells % 0.0 Immature Granulocytes # 0.070 H Neutrophils # 9.2 H Lymphocytes # 0.9 Monocytes # 0.5 Eosinophils # 0.4 Basophils # 0.0 Nucleated Red Blood Cells # 0.0 Sodium Level 137 Potassium Level 3.6 Chloride Level 102 Carbon Dioxide Level 25 Anion Gap 10 Blood Urea Nitrogen 62 H Creatinine 1.63 H Est Glomerular Filtrat Rate mL/min Glucose Level 100 Calcium Level 9.4 Subjective 24 Hr Interval Summary Free Text/Dictation Leukocytosis; afebrile CR 1.63 today refuses ADLs at times no new events reported last night dw staff Constitutional: requiring O2 Exam/Review of Systems Exam Vitals Vital Signs Date Temp Pulse Resp B/P (MAP) Pulse Ox O2 O2 Flow FiO2 Time Delivery Rate 06/19/18 69 08:22 06/19/18 98.6 16 124/59 100 08:09 (80) 06/19/18 30 05:31 06/18/18 Trach 15:03 Collar Intake and Output 06/18/18 06/18/18 06/19/18 1515:00 23:00 07:00 IntakeIntake Total 1080 ml OutputOutput Total 600 ml BalanceBalance 480 ml Constitutional: alert, well developed Psych: nl mood/affect Eyes: nl lids, nl sclera ENMT: nl external ears & nose Neck: non-tender, other (trach intact) Respiratory: clear to auscultation Cardiovascular: nl pulses, other (s1s2) Gastrointestinal: soft, other (gt intact) Musculoskeletal: muscle weakness Extremities: normal pulses Neurological: confused, focal weakness Skin: other Lymph: nontender Results Results 24hrs Laboratory Tests Test 06/19/18 00:55 06/19/18 05:54 Amikacin Level Trough 6.4 White Blood Count 11.1 H Red Blood Count 2.11 L Hemoglobin 7.2 L Hematocrit 23.8 L Mean Corpuscular Volume 112.8 H Mean Corpuscular Hemoglobin 34.1 H Mean Corpuscular Hemoglobin Concent 30.3 L Red Cell Distribution Width 25.2 H Platelet Count 286 Mean Platelet Volume 10.0 Immature Granulocytes % 0.600 H Neutrophils % 82.7 H Lymphocytes % 8.2 L Monocytes % 4.6 Eosinophils % 3.8 Basophils % 0.1 Nucleated Red Blood Cells % 0.0 Immature Granulocytes # 0.070 H Neutrophils # 9.2 H Lymphocytes # 0.9 Monocytes # 0.5 Eosinophils # 0.4 Basophils # 0.0 Nucleated Red Blood Cells # 0.0 Sodium Level 137 Potassium Level 3.6 Chloride Level 102 Carbon Dioxide Level 25 Anion Gap 10 Blood Urea Nitrogen 62 H Creatinine 1.63 H Est Glomerular Filtrat Rate mL/min Glucose Level 100 Calcium Level 9.4 Medications Medication Current Medications IV Flush (NS 10 ml) 10 ml PRN IV ; Start 05/06/18 at 20:30 Ascorbic Acid (Vitamin C) 500 mg DAILY GTB Last administered on 06/19/18 09:02; Admin Dose 500 MG; Start 05/07/18 at 09:00 Albuterol/ Ipratropium (Duoneb) 3 ml Q2H RESP THERAPY PRN HHN SHORTNESS OF BREATH; Start 05/06/18 at 23:30 Zinc Sulfate (Zinc Sulfate) 220 mg DAILY GTB Last administered on 06/19/18 09:02; Admin Dose 220 MG; Start 05/07/18 at 09:00 Ondansetron HCl (Zofran Tab) 4 mg Q6H PRN GTB NAUSEA AND/OR VOMITING Last administered on 05/31/18 16:47; Admin Dose 4 MG; Start 05/07/18 at 00:15 Multivitamins (Multivitamin) 30 ml DAILY GTB Last administered on 06/19/18 09:02; Admin Dose 30 ML; Start 05/07/18 at 09:00 Miscellaneous Information (Pending Santyl Order For Wound Care) This patient goldman... PRN PRN XX WOUND CARE; Start 05/09/18 at 17:00 Spironolactone (Aldactone) 50 mg DAILY GTB Last administered on 06/19/18 09:02; Admin Dose 50 MG; Start 05/21/18 at 09:00 Famotidine (Pepcid) 20 mg DAILY PEG Last administered on 06/19/18 09:02; Admin Dose 20 MG; Start 05/23/18 at 09:00 Morphine Sulfate (morphine) 6 mg Q4H PRN PEG SEVERE PAIN LEVEL 7-10 Last administered on 06/18/18 13:09; Admin Dose 6 MG; Start 05/22/18 at 17:00 Albumin Human 100 ml @ 100 mls/hr DURING DIALYSIS PRN IV hypotension on hd Last administered on 05/29/18 14:49; Admin Dose 100 MLS/HR; Start 05/27/18 at 07:30 Cholestyramine Resin (Questran Light) 4 gm 0600,1200,1800,2300 PO Last administered on 06/19/18 05:19; Admin Dose 4 GM; Start 05/27/18 at 18:00 Lorazepam (Ativan) 0.5 mg Q4H PRN IV ANXIETY; Start 05/30/18 at 12:00 Acetaminophen (Tylenol Tab) 650 mg Q4H PRN PO MILD PAIN(1-3)OR ELEVATED TEMP Last administered on 06/10/18 21:44; Admin Dose 650 MG; Start 05/31/18 at 13:00 Metoclopramide HCl (Reglan) 5 mg Q6 IV Last administered on 06/19/18 05:18; Admin Dose 5 MG; Start 05/31/18 at 13:00 Collagenase (Santyl) 1 applic DAILY TOP Last administered on 06/19/18 09:01; Admin Dose 1 APPLIC; Start 06/01/18 at 09:00 Clonidine (Catapres) 0.1 mg Q6H PRN PO ELEVATED BLOOD PRESSURE Last administered on 06/17/18 05:59; Admin Dose 0.1 MG; Start 06/03/18 at 03:30 Citric Acid/ Sodium Citrate (Bicitra) 30 ml TID PO Last administered on 06/19/18 09:02; Admin Dose 30 ML; Start 06/06/18 at 13:00 Metoprolol Tartrate (Lopressor) 75 mg Q8 GTB Last administered on 06/19/18 05:18; Admin Dose 75 MG; Start 06/08/18 at 14:00 Bumetanide (Bumex) 1 mg BID DIURETICS GTB Last administered on 06/19/18 05:17; Admin Dose 1 MG; Start 06/11/18 at 18:00 Amiodarone HCl (Cordarone) 200 mg Q12 PO Last administered on 06/19/18 09:02; Admin Dose 200 MG; Start 06/12/18 at 21:00 Collagenase (Santyl) 1 applic PRN PRN TOP WHEN SOILED; Start 06/13/18 at 01:00 Nystatin (Nystatin Powder) 1 applic BID TOP Last administered on 06/19/18 09:02; Admin Dose 1 APPLIC; Start 06/13/18 at 14:00 Vancomycin HCl (Vancomycin Oral Syringe) 250 mg BID GTB Last administered on 06/19/18 09:02; Admin Dose 250 MG; Start 06/15/18 at 09:00; Stop 06/22/18 at 08: 59 Vancomycin HCl (Vancomycin Oral Syringe) 250 mg DAILY GTB ; Start 06/22/18 at 09:00; Stop 06/29/18 at 08:59 Vancomycin HCl (Vancomycin Oral Syringe) 250 mg Q48H GTB ; Start 06/29/18 at 14:00; Stop 07/06/18 at 13:59 Epoetin Zen-epbx (RETACRIT(esrd)) 20,000 unit Tu@1700 SC Last administered on 06/16/18 20:13; Admin Dose 20,000 UNIT; Start 06/16/18 at 18:30 Amikacin Sulfate (Amikacin Iv Per Pharmacy) AMIKACIN PER PHARMACY NOTE XX ; Start 06/17/18 at 11:30; Stop 06/22/18 at 11:29 Amlodipine Besylate (Norvasc) 5 mg DAILY PO Last administered on 06/19/18 09:03; Admin Dose 5 MG; Start 06/17/18 at 11:30 Amikacin Sulfate 350 mg/Sodium Chloride 101.4 ml @ 102 mls/hr Q36H IVPB Last administered on 06/19/18 02:15; Admin Dose 102 MLS/HR; Start 06/17/18 at 14:00; Stop 06/22/18 at 13:59 KERON MORAN June 19, 2018 09:29
--- NOTE | 2018-06-19 09:43 | CONS ---
Assessment/Plan Assessment/Plan Assessment/Plan (Daily) Ventilator setting; AC of 20, tidal volume 500, PEEP of 5, 30% FiO2. Assessment and recommendations; 1. Patient admitted for recurrent respiratory failure status post redo tracheostomy. 2. Status post treatment for severe bilateral pneumonia. 3. History of renal failure, hemodialysis dependent. 4. Chronic atrial fibrillation. 5. Anemia. 6. Critical illness neuropathy/myopathy. Continue current supportive care. Transfer to rehab center. Consultation Date/Type/Reason Admit Date/Time May 06, 2018 at 17:38 Initial Consult Date 05/10/18 Type of Consult Pulmonary/critical care Requesting Provider: ROLAND GIRON MD Date/Time of Note DATE: 06/19/18 TIME: 09:42 24 HR Interval Summary Free Text/Dictation Patient's condition is stable. General exam; elderly lady, on ventilator via tracheostomy, awake, currently no distress. Exam/Review of Systems Exam Vitals Vital Signs Date Temp Pulse Resp B/P (MAP) Pulse Ox O2 O2 Flow FiO2 Time Delivery Rate 06/19/18 69 08:22 06/19/18 98.6 16 124/59 100 08:09 (80) 06/19/18 30 05:31 06/18/18 Trach 15:03 Collar Intake and Output 06/18/18 06/18/18 06/19/18 1515:00 23:00 07:00 IntakeIntake Total 1080 ml OutputOutput Total 600 ml BalanceBalance 480 ml Exam H EENT exam; supple neck, no JVD. No lymphadenopathy. Midline trachea. No thyromegaly. Tracheostomy in place. Chest exam; diminished but clear breath sounds. S1-S2 audible, no murmurs. Re gular rhythm. Abdomen exam; soft, G-tube in place. No organomegaly. Bowel sounds audible. Extremity exam; no peripheral edema clubbing. Patient does have patchy ecchymosis. MATERIAL CHECKER exam; no focal deficit. Results Result Diagram: 06/19/18 0554 06/19/18 0554 Results 24hrs Laboratory Tests Test 06/19/18 00:55 06/19/18 05:53 06/19/18 05:54 Amikacin Level Trough 6.4 Iron Level 31 L Total Iron Binding Capacity 221 L Percent Iron Saturation 14 L White Blood Count 11.1 H Red Blood Count 2.11 L Hemoglobin 7.2 L Hematocrit 23.8 L Mean Corpuscular Volume 112.8 H Mean Corpuscular Hemoglobin 34.1 H Mean Corpuscular Hemoglobin Concent 30.3 L Red Cell Distribution Width 25.2 H Platelet Count 286 Mean Platelet Volume 10.0 Immature Granulocytes % 0.600 H Neutrophils % 82.7 H Lymphocytes % 8.2 L Monocytes % 4.6 Eosinophils % 3.8 Basophils % 0.1 Nucleated Red Blood Cells % 0.0 Immature Granulocytes # 0.070 H Neutrophils # 9.2 H Lymphocytes # 0.9 Monocytes # 0.5 Eosinophils # 0.4 Basophils # 0.0 Nucleated Red Blood Cells # 0.0 Sodium Level 137 Potassium Level 3.6 Chloride Level 102 Carbon Dioxide Level 25 Anion Gap 10 Blood Urea Nitrogen 62 H Creatinine 1.63 H Est Glomerular Filtrat Rate mL/min Glucose Level 100 Calcium Level 9.4 Medications Medication Current Medications IV Flush (NS 10 ml) 10 ml PRN IV ; Start 05/06/18 at 20:30 Ascorbic Acid (Vitamin C) 500 mg DAILY GTB Last administered on 06/19/18 09:02; Admin Dose 500 MG; Start 05/07/18 at 09:00 Albuterol/ Ipratropium (Duoneb) 3 ml Q2H RESP THERAPY PRN HHN SHORTNESS OF BREATH; Start 05/06/18 at 23:30 Zinc Sulfate (Zinc Sulfate) 220 mg DAILY GTB Last administered on 06/19/18 09:02; Admin Dose 220 MG; Start 05/07/18 at 09:00 Ondansetron HCl (Zofran Tab) 4 mg Q6H PRN GTB NAUSEA AND/OR VOMITING Last administered on 05/31/18at 16:47; Admin Dose 4 MG; Start 05/07/18 at 00:15 Multivitamins (Multivitamin) 30 ml DAILY GTB Last administered on 06/19/18 09:02; Admin Dose 30 ML; Start 05/07/18 at 09:00 Miscellaneous Information (Pending Santyl Order For Wound Care) This patient goldman... PRN PRN XX WOUND CARE; Start 05/09/18 at 17:00 Spironolactone (Aldactone) 50 mg DAILY GTB Last administered on 06/19/18 09:02; Admin Dose 50 MG; Start 05/21/18 at 09:00 Famotidine (Pepcid) 20 mg DAILY PEG Last administered on 06/19/18 09:02; Admin Dose 20 MG; Start 05/23/18 at 09:00 Morphine Sulfate (morphine) 6 mg Q4H PRN PEG SEVERE PAIN LEVEL 7-10 Last administered on 06/18/18 13:09; Admin Dose 6 MG; Start 05/22/18 at 17:00 Albumin Human 100 ml @ 100 mls/hr DURING DIALYSIS PRN IV hypotension on hd Last administered on 05/29/18 14:49; Admin Dose 100 MLS/HR; Start 05/27/18 at 07:30 Cholestyramine Resin (Questran Light) 4 gm 0600,1200,1800,2300 PO Last administered on 06/19/18 05:19; Admin Dose 4 GM; Start 05/27/18 at 18:00 Lorazepam (Ativan) 0.5 mg Q4H PRN IV ANXIETY; Start 05/30/18 at 12:00 Acetaminophen (Tylenol Tab) 650 mg Q4H PRN PO MILD PAIN(1-3)OR ELEVATED TEMP Last administered on 06/10/18 21:44; Admin Dose 650 MG; Start 05/31/18 at 13:00 Metoclopramide HCl (Reglan) 5 mg Q6 IV Last administered on 06/19/18 05:18; Admin Dose 5 MG; Start 05/31/18 at 13:00 Collagenase (Santyl) 1 applic DAILY TOP Last administered on 06/19/18 09:01; Admin Dose 1 APPLIC; Start 06/01/18 at 09:00 Clonidine (Catapres) 0.1 mg Q6H PRN PO ELEVATED BLOOD PRESSURE Last administered on 06/17/18 05:59; Admin Dose 0.1 MG; Start 06/03/18 at 03:30 Citric Acid/ Sodium Citrate (Bicitra) 30 ml TID PO Last administered on 09:02; Admin Dose 30 ML; Start 06/06/18 at 13:00 Metoprolol Tartrate (Lopressor) 75 mg Q8 GTB Last administered on 06/19/18 05:18; Admin Dose 75 MG; Start 06/08/18 at 14:00 Bumetanide (Bumex) 1 mg BID DIURETICS GTB Last administered on 06/19/18 05:17; Admin Dose 1 MG; Start 06/11/18 at 18:00 Amiodarone HCl (Cordarone) 200 mg Q12 PO Last administered on 06/19/18 09:02; Admin Dose 200 MG; Start 06/12/18 at 21:00 Collagenase (Santyl) 1 applic PRN PRN TOP WHEN SOILED; Start 06/13/18 at 01:00 Nystatin (Nystatin Powder) 1 applic BID TOP Last administered on 06/19/18 09:02; Admin Dose 1 APPLIC; Start 06/13/18 at 14:00 Vancomycin HCl (Vancomycin Oral Syringe) 250 mg BID GTB Last administered on 06/19/18 09:02; Admin Dose 250 MG; Start 06/15/18 at 09:00; Stop 06/22/18 at 08:59 Vancomycin HCl (Vancomycin Oral Syringe) 250 mg DAILY GTB ; Start 06/22/18 at 09:00; Stop 06/29/18 at 08:59 Vancomycin HCl (Vancomycin Oral Syringe) 250 mg Q48H GTB ; Start 06/29/18 at 14:00; Stop 07/06/18 at 13:59 Epoetin Zen-epbx (RETACRIT(esrd)) 20,000 unit Tu@1700 SC Last administered on 06/16/18 20:13; Admin Dose 20,000 UNIT; Start 06/16/18 at 18:30 Amikacin Sulfate (Amikacin Iv Per Pharmacy) AMIKACIN PER PHARMACY NOTE XX ; Start 06/17/18 at 11:30; Stop 06/22/18 at 11:29 Amlodipine Besylate (Norvasc) 5 mg DAILY PO Last administered on 06/19/18 09:03; Admin Dose 5 MG; Start 06/17/18 at 11:30 Amikacin Sulfate 350 mg/Sodium Chloride 101.4 ml @ 102 mls/hr Q36H IVPB Last administered on 06/19/18 02:15; Admin Dose 102 MLS/HR; Start 06/17/18 at 14:00; Stop 06/22/18 at 13:59 ELOISA LAURA June 19, 2018 09:43
--- NOTE | 2018-06-19 12:07 | CONS ---
Assessment/Plan Assessment/Plan Hospital Course (Demo Recall) Septic as well as hemorrhagic shock-resolved Acute respiratory failure status post intubation and repeat tracheostomy Acute blood loss anemia History of respiratory failure status post decannulation Preserved ejection fraction echocardiogram 05/10/2018 Paroxysmal atrial fibrillation Acute kidney injury Hypertension -Patient with paroxysmal atrial fibrillation, has remained sinus with beta-bl ocker and amiodarone, continue as tolerated -Blood pressure trend improved on amlodipine, titrate as needed -Vent management as per pulmonary -Fluid management and electrolytes as per renal -Antibiotics as per infectious disease -No anticoagulation given recurrent anemia requiring blood transfusions Consultation Date/Type/Reason Admit Date/Time May 06, 2018 at 17:38 Initial Consult Date 05/10/18 Type of Consult Cardiology Requesting Provider: ROLAND GIORN MD Date/Time of Note DATE: 06/19/18 TIME: 12:06 24 HR Interval Summary Free Text/Dictation Denies shortness of breath, chest pain or palpitations Exam/Review of Systems Vital Signs Vitals Vital Signs Date Temp Pulse Resp B/P (MAP) Pulse Ox O2 O2 Flow FiO2 Time Delivery Rate 06/19/18 76 22 100 30 11:39 06/19/18 98.6 124/59 08:09 (80) 06/18/18 Trach 15:03 Collar Intake and Output 06/18/18 06/18/18 06/19/18 1515:00 23:00 07:00 IntakeIntake Total 1080 ml OutputOutput Total 600 ml BalanceBalance 480 ml Exam Constitutional: alert (No apparent distress, following commands) Head: normocephalic Neck: other (Tracheostomy) Respiratory: other (Coarse breath sounds bilaterally, no wheezing, mild scattered crackles) Cardiovascular: regular rate and rhythm (S1-S2 heard) Gastrointestinal: soft, non-tender, bowel sounds Extremities: edema Labs Result Diagram: 06/19/18 0554 06/19/18 0554 Results 24hrs Laboratory Tests Test 06/19/18 00:55 06/19/18 05:53 06/19/18 05:54 06/19/18 11:09 Amikacin Level Trough 6.4 Iron Level 31 L Total Iron Binding 221 L Capacity Percent Iron 14 L Saturation Ferritin 930.0 H White Blood Count 11.1 H Red Blood Count 2.11 L Hemoglobin 7.2 L Hematocrit 23.8 L Mean Corpuscular 112.8 H Volume Mean Corpuscular 34.1 H Hemoglobin Mean Corpuscular 30.3 L Hemoglobin Concent Red Cell Distribution 25.2 H Width Platelet Count 286 Mean Platelet Volume 10.0 Immature Granulocytes 0.600 H % Neutrophils % 82.7 H Lymphocytes % 8.2 L Monocytes % 4.6 Eosinophils % 3.8 Basophils % 0.1 Nucleated Red Blood 0.0 Cells % Immature Granulocytes 0.070 H # Neutrophils # 9.2 H Lymphocytes # 0.9 Monocytes # 0.5 Eosinophils # 0.4 Basophils # 0.0 Nucleated Red Blood 0.0 Cells # Sodium Level 137 Potassium Level 3.6 Chloride Level 102 Carbon Dioxide Level 25 Anion Gap 10 Blood Urea Nitrogen 62 H Creatinine 1.63 H Est Glomerular Filtrat Rate mL/min Glucose Level 100 Calcium Level 9.4 Lab Scanned Report REFERENCE LAB Medications Medications Current Medications IV Flush (NS 10 ml) 10 ml PRN IV ; Start 05/06/18 at 20:30 Ascorbic Acid (Vitamin C) 500 mg DAILY GTB Last administered on 06/19/18 09:02; Admin Dose 500 MG; Start 05/07/18 at 09:00 Albuterol/ Ipratropium (Duoneb) 3 ml Q2H RESP THERAPY PRN HHN SHORTNESS OF BREATH; Start 05/06/18 at 23:30 Zinc Sulfate (Zinc Sulfate) 220 mg DAILY GTB Last administered on 06/19/18 09:02; Admin Dose 220 MG; Start 05/07/18 at 09:00 Ondansetron HCl (Zofran Tab) 4 mg Q6H PRN GTB NAUSEA AND/OR VOMITING Last administered on 05/31/18at 16:47; Admin Dose 4 MG; Start 05/07/18 at 00:15 Multivitamins (Multivitamin) 30 ml DAILY GTB Last administered on 06/19/18 09:02; Admin Dose 30 ML; Start 05/07/18 at 09:00 Miscellaneous Information (Pending Santyl Order For Wound Care) This patient goldman... PRN PRN XX WOUND CARE; Start 05/09/18 at 17:00 Spironolactone (Aldactone) 50 mg DAILY GTB Last administered on 06/19/18 09:02; Admin Dose 50 MG; Start 05/21/18 at 09:00 Famotidine (Pepcid) 20 mg DAILY PEG Last administered on 06/19/18 09:02; Admin Dose 20 MG; Start 05/23/18 at 09:00 Morphine Sulfate (morphine) 6 mg Q4H PRN PEG SEVERE PAIN LEVEL 7-10 Last administered on 06/18/18 13:09; Admin Dose 6 MG; Start 05/22/18 at 17:00 Albumin Human 100 ml @ 100 mls/hr DURING DIALYSIS PRN IV hypotension on hd Last administered on 05/29/18 14:49; Admin Dose 100 MLS/HR; Start 05/27/18 at 07:30 Cholestyramine Resin (Questran Light) 4 gm 0600,1200,1800,2300 PO Last administered on 06/19/18 05:19; Admin Dose 4 GM; Start 05/27/18 at 18:00 Lorazepam (Ativan) 0.5 mg Q4H PRN IV ANXIETY; Start 05/30/18 at 12:00 Acetaminophen (Tylenol Tab) 650 mg Q4H PRN PO MILD PAIN(1-3)OR ELEVATED TEMP Last administered on 06/10/18 21:44; Admin Dose 650 MG; Start 05/31/18 at 13:00 Metoclopramide HCl (Reglan) 5 mg Q6 IV Last administered on 06/19/18 05:18; Admin Dose 5 MG; Start 05/31/18 at 13:00 Collagenase (Santyl) 1 applic DAILY TOP Last administered on 06/19/18 09:01; Admin Dose 1 APPLIC; Start 06/01/18 at 09:00 Clonidine (Catapres) 0.1 mg Q6H PRN PO ELEVATED BLOOD PRESSURE Last adminis tered on 06/17/18 05:59; Admin Dose 0.1 MG; Start 06/03/18 at 03:30 Citric Acid/ Sodium Citrate (Bicitra) 30 ml TID PO Last administered on 06/19/18 09:02; Admin Dose 30 ML; Start 06/06/18 at 13:00 Metoprolol Tartrate (Lopressor) 75 mg Q8 GTB Last administered on 06/19/18 05:18; Admin Dose 75 MG; Start 06/08/18 at 14:00 Bumetanide (Bumex) 1 mg BID DIURETICS GTB Last administered on 06/19/18 05:17; Admin Dose 1 MG; Start 06/11/18 at 18:00 Amiodarone HCl (Cordarone) 200 mg Q12 PO Last administered on 06/19/18 09:02; Admin Dose 200 MG; Start 06/12/18 at 21:00 Collagenase (Santyl) 1 applic PRN PRN TOP WHEN SOILED; Start 06/13/18 at 01:00 Nystatin (Nystatin Powder) 1 applic BID TOP Last administered on 06/19/18 09:02; Admin Dose 1 APPLIC; Start 06/13/18 at 14:00 Vancomycin HCl (Vancomycin Oral Syringe) 250 mg BID GTB Last administered on 06/19/18 09:02; Admin Dose 250 MG; Start 06/15/18 at 09:00; Stop 06/22/18 at 08:59 Vancomycin HCl (Vancomycin Oral Syringe) 250 mg DAILY GTB ; Start 06/22/18 at 09:00; Stop 06/29/18 at 08:59 Vancomycin HCl (Vancomycin Oral Syringe) 250 mg Q48H GTB ; Start 06/29/18 at 14:00; Stop 07/06/18 at 13:59 Epoetin Zen-epbx (RETACRIT(esrd)) 20,000 unit Tu@1700 SC Last administered on 06/16/18 20:13; Admin Dose 20,000 UNIT; Start 06/16/18 at 18:30 Amikacin Sulfate (Amikacin Iv Per Pharmacy) AMIKACIN PER PHARMACY NOTE XX ; Start 06/17/18 at 11:30; Stop 06/22/18 at 11:29 Amlodipine Besylate (Norvasc) 5 mg DAILY PO Last administered on 06/19/18 09:03; Admin Dose 5 MG; Start 06/17/18 at 11:30 Amikacin Sulfate 350 mg/Sodium Chloride 101.4 ml @ 102 mls/hr Q36H IVPB Last administered on 06/19/18 02:15; Admin Dose 102 MLS/HR; Start 06/17/18 at 14:00; Stop 06/22/18 at 13:59 Evangelista Scanlon DO June 19, 2018 12:07
[2018-06-19] MEDS: morphine LIQ (10 MG/5 ML) CUP PEG PRN ×2 (12:16→17:21)
--- NOTE | 2018-06-19 13:42 | CONS ---
Assessment/Plan Assessment/Plan Assessment/Plan (Daily) yo female Interval hx: Pt alert. Is having abdominal pain, tender to palpitation. 1. ABD pain -CT of abd 2. Renal failure.- on HD 3. Vent dependent resp failure 4. Chronic obstructive pulmonary disease. 5. Bipolar. 6. Paroxysmal atrial fibrillation. 7. Anemia of chronic disease. 8. CHF 9. Diarrhea 11. Diarrhea -s/p c diff colitis -taper off of vanco 12. H/O deep esophageal ulcer 13. Dysphagia with g tube 14. Anemia of chronic disease 15. UTI with positive cx 16. Macrocytosis CT of abd/pelvis 06/16 1. Nonspecific bibasilar ground-glass densities and the airspace disease, suggesting bilateral pneumonia versus pulmonary edema. 2. Atrophy of the left kidney. 2.3 cm left renal cyst. The right kidney demonstrates compensatory hypertrophy. No calculus or hydronephrosis in either kidney. 3. Atherosclerosis of the aorta. 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 No leak or rupture. 4. Mild nonspecific ascites in the pelvis. 5. Air-fluid levels are seen throughout the small bowel and colon. Consider mild ileus versus enterocolitis. Patient has good bowel movement and there is no evidence of emesis or nausea PLAN: Ok to resume tube feeds Continue with reglan and pepcid Taper vanco to off Monitor tube feeds residuals q 6 hours Monitor hemoglobin hematocrit, there is a significant drop in her hematocrit Will send for B12 and folic acid level Consultation Date/Type/Reason Admit Date/Time May 06, 2018 at 17:38 Initial Consult Date 05/10/18 Requesting Provider: ROLAND GIRON MD Date/Time of Note DATE: 06/19/18 TIME: 13:41 24 HR Interval Summary Free Text/Dictation Patient complains of abdominal pain Exam/Review of Systems Exam Vitals Vital Signs Date Temp Pulse Resp B/P (MAP) Pulse Ox O2 O2 Flow FiO2 Time Delivery Rate 06/19/18 78 12:14 06/19/18 22 100 30 11:39 06/19/18 98.6 124/59 08:09 (80) 06/18/18 Trach 15:03 Collar Intake and Output 06/18/18 06/18/18 06/19/18 1515:00 23:00 07:00 IntakeIntake Total 1080 ml OutputOutput Total 600 ml BalanceBalance 480 ml ENMT: intubated Respiratory: clear to auscultation, normal air movement Gastrointestinal: soft Musculoskeletal: nl extremities to inspection, nl gait and stance Results Result Diagram: 06/19/18 0554 06/19/18 0554 Results 24hrs Laboratory Tests Test 06/19/18 00:55 06/19/18 05:53 06/19/18 05:54 06/19/18 11:09 Amikacin Level Trough 6.4 Iron Level 31 L Total Iron Binding 221 L Capacity Percent Iron 14 L Saturation Ferritin 930.0 H White Blood Count 11.1 H Red Blood Count 2.11 L Hemoglobin 7.2 L Hematocrit 23.8 L Mean Corpuscular 112.8 H Volume Mean Corpuscular 34.1 H Hemoglobin Mean Corpuscular 30.3 L Hemoglobin Concent Red Cell Distribution 25.2 H Width Platelet Count 286 Mean Platelet Volume 10.0 Immature Granulocytes 0.600 H % Neutrophils % 82.7 H Lymphocytes % 8.2 L Monocytes % 4.6 Eosinophils % 3.8 Basophils % 0.1 Nucleated Red Blood 0.0 Cells % Immature Granulocytes 0.070 H # Neutrophils # 9.2 H Lymphocytes # 0.9 Monocytes # 0.5 Eosinophils # 0.4 Basophils # 0.0 Nucleated Red Blood 0.0 Cells # Sodium Level 137 Potassium Level 3.6 Chloride Level 102 Carbon Dioxide Level 25 Anion Gap 10 Blood Urea Nitrogen 62 H Creatinine 1.63 H Est Glomerular Filtrat Rate mL/min Glucose Level 100 Calcium Level 9.4 Lab Scanned Report REFERENCE LAB Medications Medication Current Medications IV Flush (NS 10 ml) 10 ml PRN IV ; Start 05/06/18 at 20:30 Ascorbic Acid (Vitamin C) 500 mg DAILY GTB Last administered on 06/19/18at 09:02; Admin Dose 500 MG; Start 05/07/18 at 09:00 Albuterol/ Ipratropium (Duoneb) 3 ml Q2H RESP THERAPY PRN HHN SHORTNESS OF BREATH; Start 05/06/18 at 23:30 Zinc Sulfate (Zinc Sulfate) 220 mg DAILY GTB Last administered on 06/19/18at 09:02; Admin Dose 220 MG; Start 05/07/18 at 09:00 Ondansetron HCl (Zofran Tab) 4 mg Q6H PRN GTB NAUSEA AND/OR VOMITING Last administered on 05/31/18 16:47; Admin Dose 4 MG; Start 05/07/18 at 00:15 Multivitamins (Multivitamin) 30 ml DAILY GTB Last administered on 06/19/18 09:02; Admin Dose 30 ML; Start 05/07/18 at 09:00 Miscellaneous Information (Pending Santyl Order For Wound Care) This patient goldman... PRN PRN XX WOUND CARE; Start 05/09/18 at 17:00 Spironolactone (Aldactone) 50 mg DAILY GTB Last administered on 06/19/18 09:02; Admin Dose 50 MG; Start 05/21/18 at 09:00 Famotidine (Pepcid) 20 mg DAILY PEG Last administered on 06/19/18 09:02; Admin Dose 20 MG; Start 05/23/18 at 09:00 Morphine Sulfate (morphine) 6 mg Q4H PRN PEG SEVERE PAIN LEVEL 7-10 Last administered on 06/19/18 12:16; Admin Dose 6 MG; Start 05/22/18 at 17:00 Albumin Human 100 ml @ 100 mls/hr DURING DIALYSIS PRN IV hypotension on hd Last administered on 05/29/18 14:49; Admin Dose 100 MLS/HR; Start 05/27/18 at 07:30 Cholestyramine Resin (Questran Light) 4 gm 0600,1200,1800,2300 PO Last administered on 06/19/18 12:08; Admin Dose 4 GM; Start 05/27/18 at 18:00 Lorazepam (Ativan) 0.5 mg Q4H PRN IV ANXIETY; Start 05/30/18 at 12:00 Acetaminophen (Tylenol Tab) 650 mg Q4H PRN PO MILD PAIN(1-3)OR ELEVATED TEMP Last administered on 06/10/18 21:44; Admin Dose 650 MG; Start 05/31/18 at 13:00 Metoclopramide HCl (Reglan) 5 mg Q6 IV Last administered on 06/19/18 12:08; Admin Dose 5 MG; Start 05/31/18 at 13:00 Collagenase (Santyl) 1 applic DAILY TOP Last administered on 06/19/18 09:01; Admin Dose 1 APPLIC; Start 06/01/18 at 09:00 Clonidine (Catapres) 0.1 mg Q6H PRN PO ELEVATED BLOOD PRESSURE Last a dministered on 06/17/18 05:59; Admin Dose 0.1 MG; Start 06/03/18 at 03:30 Citric Acid/ Sodium Citrate (Bicitra) 30 ml TID PO Last administered on 06/19/18 12:08; Admin Dose 30 ML; Start 06/06/18 at 13:00 Metoprolol Tartrate (Lopressor) 75 mg Q8 GTB Last administered on 06/19/18 05:18; Admin Dose 75 MG; Start 06/08/18 at 14:00 Bumetanide (Bumex) 1 mg BID DIURETICS GTB Last administered on 06/19/18 05:17; Admin Dose 1 MG; Start 06/11/18 at 18:00 Amiodarone HCl (Cordarone) 200 mg Q12 PO Last administered on 06/19/18 09:02; Admin Dose 200 MG; Start 06/12/18 at 21:00 Collagenase (Santyl) 1 applic PRN PRN TOP WHEN SOILED; Start 06/13/18 at 01:00 Nystatin (Nystatin Powder) 1 applic BID TOP Last administered on 06/19/18 09:02; Admin Dose 1 APPLIC; Start 06/13/18 at 14:00 Vancomycin HCl (Vancomycin Oral Syringe) 250 mg BID GTB Last administered on 06/19/18 09:02; Admin Dose 250 MG; Start 06/15/18 at 09:00; Stop 06/22/18 at 08:59 Vancomycin HCl (Vancomycin Oral Syringe) 250 mg DAILY GTB ; Start 06/22/18 at 09:00; Stop 06/29/18 at 08:59 Vancomycin HCl (Vancomycin Oral Syringe) 250 mg Q48H GTB ; Start 06/29/18 at 14:00; Stop 07/06/18 at 13:59 Epoetin Zen-epbx (RETACRIT(esrd)) 20,000 unit Tu@1700 SC Last administered on 06/16/18at 20:13; Admin Dose 20,000 UNIT; Start 06/16/18 at 18:30 Amikacin Sulfate (Amikacin Iv Per Pharmacy) AMIKACIN PER PHARMACY NOTE XX ; Start 06/17/18 at 11:30; Stop 5/6/19 at 11:29 Amlodipine Besylate (Norvasc) 5 mg DAILY PO Last administered on 06/19/18at 09: 03; Admin Dose 5 MG; Start 06/17/18 at 11:30 Amikacin Sulfate 350 mg/Sodium Chloride 101.4 ml @ 102 mls/hr Q36H IVPB Last administered on 06/19/18at 02:15; Admin Dose 102 MLS/HR; Start 06/17/18 at 14:00; Stop 06/22/18 at 13:59 QUINTEN UMAÑA MD June 19, 2018 13:42
--- NOTE | 2018-06-19 18:38 | CONS ---
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 colonization of the airway by pseudomonas and ESBL+klebsiella - h/o possible, recurrent HCAP due to pseudomonas and ESBL+klebsiella - h/o recurrent HCAP due to MRSA and Enterobacter (culture of tracheal aspirate on 07/16/2017 that was collected at [facility]) . Pt took vancomycin and ceftazidime - h/o decannulation prior to admission - h/o tracheostomy on 06/11/2017 - h/o SIRS from UGIB in 2018 - h/o thoracentesis on 07/18/2017, transudative (protein <2, LDH 279) - h/o bleeding from the trach site in 2018 - h/o septic shock due to pneumonia, ARDS, bacteremia, fungemia in 2018 - h/o ARDS in 2018 - h/o smoking - COPD - h/o ILD per medical record - h/o PAF, improved # GI - possible ileus or enterocolitis on CT abd/pel 06/15/2018 - C diff colitis, diagnosed on 05/11/2018. IV metronidazole (05/11/2018-05/29/2018; restart 05/30/2018-06/05/18), pGT vancomycin induction followed by taper (05/11/2018-) - h/o intermittent diarrhea, Pt had multiple negative C. diff tests at [facility] at OSH in the past; none was positive until 05/11/2018 - dysphagia - h/o PEG placement 06/13/2018 - protein calorie malnutrition - h/o coffee ground emesis/UGIB on 12/23/2017 due to deep ulceration of distal esophagus and gastritis on EGD 12/26/2017. No e/o H. pylori - h/o possible appendicitis on CT on 11/22/2017, Pt took ertapenem (11/24/2017- 12/01/2017) - h/o extensive adhesions lower abdominal and pelvis between small bowel to each other and to colon and to abdominal wall, anterior pelvic wall chronic abscess secondary to probably an old perforated diverticulitis, torsion of small bowel a round these dense adhesion causing multiple obstructive points - h/o laparoscopic exploration and extensive lysis of adhesions and drainage of anterior pelvic wall abscess 09/16/2017. Cultures were negative, no e/o malignancy. 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 Pt is on amikacin x 5 days (06/17- 06/22/2018) - UTI due to pseudomonas and ESBL+klebsiella on 06/09/2018, Pt took one dose of fosfomycin on 06/10/2018 and cipro 06/12-06/15/2018 - anasarca - started on HD on 05/15/2018, via Juan in R groin - recurrent NATHAN on CKD - 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 Her strain of CRE was sensitive to colistin, Avycaz, and Vabomere but resistant to Zerbaxa (reported on 05/19/2018) - Hyponatremia - Hyperkalemia, now hypokalemia - Metabolic acidosis - adrenal insufficiency - h/o vaginal bleed in 2018 - h/o colonization of urinary tract by ESBL+klebsiella, VRE - h/o recurrent, symptomatic UTI due to carbapenem-resistant kleb (MDR strain) per urine culture 10/04/17, 10/09/17, 10/21/2017, P took colistin (10/09/2017- 10/15/2017), fosfomycin for carbapenemase-producing klebsiella and VRE on 10/25/2017 and 10/28/2017 - h/o funguria - h/o urinary retention # fungemia, bacteremia 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; Pt declined surgery for MVR per outside medical records; TTE 07/01/17 did not mention any thrombus; s/p voriconazole (05/25/2017-08/01/2017) - h/o bacteremia due to MSSA and proteus s/p ceftriaxone; repeat blood cultures were negative on 06/14/2017 # musculoskeletal and dermatological - L hand pain - dry skin - chronic wound of LLE - h/o infection of wound of LLE - h/o debridement of wound of LLE on 08/06/2017 - h/o recurrent herpes labialis, Pt took acyclovir, valacyclovir - h/o Osler's nodes (eschar) of R toes with erythematous skin; desquamation of the skin and open lacerations on R plantar foot. improved. Probable manifestation of endocarditis. Pt declined MRI on 08/06/2017 - h/o infection of R toes due to pseudomonas. coagulase negative Staph likely a colonizer - h/o intertrigo of the groin, resolved with nystatin powder - h/o scabies, locally crusted lesion over L scapula, s/p permethrin cream and pGT ivermectin on 08/11/2017, 08/12/2017, 08/19/2017. Repeat skin scraping on 08/21/2017 was negative for scabies # psych, neuro - decreased hearing b/l - s/p acute toxic metabolic encephalopathy - h/o critical illness polyneuropathy - anxiety/depression, bipolar d/o, seen by Psychiatry in the past - chronic pain syndrome - h/o medical non-compliance: she would refuse her medications, treatment and straight catheterization in 2018 # hematological, vascular - chronic anemia requiring blood transfusion intermittently - macrocytic anemia - aneurysmal dilatation of the distal aorta visualized on CT 06/15/2018 - PVD recommendations: - continue renally dosed amikacin for klebsiella in her blood culture (06/17- 06/22/2018), planned for 5 days - continue pGT vancomycin taper: 06/15/2018-06/21/2018 bid, 06/22-06/28: daily, 06/29- 07/05: q48hrs management d/w Pt Consultation Date/Type/Reason Admit Date/Time May 06, 2018 at 17:38 Initial Consult Date 05/10/18 Type of Consult ID Requesting Provider: ROLAND GIRON MD Date/Time of Note DATE: 06/19/18 TIME: 18:33 24 HR Interval Summary Constitutional: improved Detailed Summary Eyes: no complaints ENT: no complaints Respiratory: No shortness of breath Cardiovascular: no complaints Gastrointestinal: diarrhea; No pain, No nausea Genitourinary: other (I&D) Musculoskeletal: restricted range of motion; No neck pain Skin: no complaints Neurologic: focal-weakness Exam/Review of Systems Exam Vitals Vital Signs Date Temp Pulse Resp B/P (MAP) Pulse Ox O2 O2 Flow FiO2 Time Delivery Rate 06/19/18 72 23 100 30 17:33 06/19/18 98.2 140/67 16:02 (91) 06/19/18 Mechanical 14:04 Ventilator Intake and Output 06/18/18 06/18/18 06/19/18 1515:00 23:00 07:00 IntakeIntake Total 1080 ml OutputOutput Total 600 ml BalanceBalance 480 ml Constitutional: frail Psych: confusion Head: normocephalic, atraumatic Eyes: nl conjunctiva, nl lids ENMT: nl external ears & nose, nl nasal mucosa & septum Neck: other (trach) Respiratory: diminished breath sounds, other (congested sounds) Cardiovascular: regular rate and rhythm, nl pulses Gastrointestinal: soft, non-tender, surgical scars; No distended Genitourinary - Female: other (FC) Musculoskeletal: nl extremities to inspection Extremities: No edema Neurological: lethargic Skin: rash or lesions (flaky skin) Results Result Diagram: 06/19/18 0554 06/19/18 0554 Results 24hrs Laboratory Tests Test 06/19/18 00:55 06/19/18 05:53 06/19/18 05:54 06/19/18 11:09 Amikacin Level Trough 6.4 Iron Level 31 L Total Iron Binding 221 L Capacity Percent Iron 14 L Saturation Ferritin 930.0 H White Blood Count 11.1 H Red Blood Count 2.11 L Hemoglobin 7.2 L Hematocrit 23.8 L Mean Corpuscular 112.8 H Volume Mean Corpuscular 34.1 H Hemoglobin Mean Corpuscular 30.3 L Hemoglobin Concent Red Cell Distribution 25.2 H Width Platelet Count 286 Mean Platelet Volume 10.0 Immature Granulocytes 0.600 H % Neutrophils % 82.7 H Lymphocytes % 8.2 L Monocytes % 4.6 Eosinophils % 3.8 Basophils % 0.1 Nucleated Red Blood 0.0 Cells % Immature Granulocytes 0.070 H # Neutrophils # 9.2 H Lymphocytes # 0.9 Monocytes # 0.5 Eosinophils # 0.4 Basophils # 0.0 Nucleated Red Blood 0.0 Cells # Sodium Level 137 Potassium Level 3.6 Chloride Level 102 Carbon Dioxide Level 25 Anion Gap 10 Blood Urea Nitrogen 62 H Creatinine 1.63 H Est Glomerular Filtrat Rate mL/min Glucose Level 100 Calcium Level 9.4 Lab Scanned Report REFERENCE LAB Medications Medication Current Medications IV Flush (NS 10 ml) 10 ml PRN IV ; Start 05/06/18 at 20:30 Ascorbic Acid (Vitamin C) 500 mg DAILY GTB Last administered on 06/19/18 09:02; Admin Dose 500 MG; Start 05/07/18 at 09:00 Albuterol/ Ipratropium (Duoneb) 3 ml Q2H RESP THERAPY PRN HHN SHORTNESS OF BREATH; Start 05/06/18 at 23:30 Zinc Sulfate (Zinc Sulfate) 220 mg DAILY GTB Last administered on 06/19/18 09:02; Admin Dose 220 MG; Start 05/07/18 at 09:00 Ondansetron HCl (Zofran Tab) 4 mg Q6H PRN GTB NAUSEA AND/OR VOMITING Last administered on 05/31/18at 16:47; Admin Dose 4 MG; Start 05/07/18 at 00:15 Multivitamins (Multivitamin) 30 ml DAILY GTB Last administered on 06/19/18 09:02; Admin Dose 30 ML; Start 05/07/18 at 09:00 [facility] This patient goldman... PRN PRN XX WOUND CARE; Start 05/09/18 at 17:00 Spironolactone (Aldactone) 50 mg DAILY GTB Last administered on 06/19/18 09:02; Admin Dose 50 MG; Start 05/21/18 at 09:00 Famotidine (Pepcid) 20 mg DAILY PEG Last administered on 06/19/18 09:02; Admin Dose 20 MG; Start 05/23/18 at 09:00 Morphine Sulfate (morphine) 6 mg Q4H PRN PEG SEVERE PAIN LEVEL 7-10 Last administered on 06/19/18 17:21; Admin Dose 6 MG; Start 05/22/18 at 17:00 Albumin Human 100 ml @ 100 mls/hr DURING DIALYSIS PRN IV hypotension on hd Last administered on 05/29/18 14:49; Admin Dose 100 MLS/HR; Start 05/27/18 at 07:30 Cholestyramine Resin (Questran Light) 4 gm 0600,1200,1800,2300 PO Last administered on 06/19/18 17:21; Admin Dose 4 GM; Start 05/27/18 at 18:00 Lorazepam (Ativan) 0.5 mg Q4H PRN IV ANXIETY; Start 05/30/18 at 12:00 Acetaminophen (Tylenol Tab) 650 mg Q4H PRN PO MILD PAIN(1-3)OR ELEVATED TEMP Last administered on 06/10/18 21:44; Admin Dose 650 MG; Start 05/31/18 at 13:00 Metoclopramide HCl (Reglan) 5 mg Q6 IV Last administered on 06/19/18 17:21; Admin Dose 5 MG; Start 05/31/18 at 13:00 Collagenase (Santyl) 1 applic DAILY TOP Last administered on 06/19/18 09:01; Admin Dose 1 APPLIC; Start 06/01/18 at 09:00 Clonidine (Catapres) 0.1 mg Q6H PRN PO ELEVATED BLOOD PRESSURE Last administered on 06/17/18 05:59; Admin Dose 0.1 MG; Start 06/03/18 at 03:30 Citric Acid/ Sodium Citrate (Bicitra) 30 ml TID PO Last administered on 06/19/18 12:08; Admin Dose 30 ML; Start 06/06/18 at 13:00 Metoprolol Tartrate (Lopressor) 75 mg Q8 GTB Last administered on 06/19/18 14:12; Admin Dose 75 MG; Start 06/08/18 at 14:00 Bumetanide (Bumex) 1 mg BID DIURETICS GTB Last administered on 06/19/18 17:21; Admin Dose 1 MG; Start 06/11/18 at 18:00 Amiodarone HCl (Cordarone) 200 mg Q12 PO Last administered on 06/19/18 09:02; Admin Dose 200 MG; Start 06/12/18 at 21:00 Collagenase (Santyl) 1 applic PRN PRN TOP WHEN SOILED; Start 06/13/18 at 01:00 Nystatin (Nystatin Powder) 1 applic BID TOP Last administered on 06/19/18 09:02; Admin Dose 1 APPLIC; Start 06/13/18 at 14:00 Vancomycin HCl (Vancomycin Oral Syringe) 250 mg BID GTB Last administered on 06/19/18 09:02; Admin Dose 250 MG; Start 06/15/18 at 09:00; Stop 06/22/18 at 08:59 Vancomycin HCl (Vancomycin Oral Syringe) 250 mg DAILY GTB ; Start 06/22/18 at 09:00; Stop 06/29/18 at 08:59 Vancomycin HCl (Vancomycin Oral Syringe) 250 mg Q48H GTB ; Start 06/29/18 at 14:00; Stop 07/06/18 at 13:59 Epoetin Zen-epbx (RETACRIT(esrd)) 20,000 unit Tu@1700 SC Last administered on 06/16/18 20:13; Admin Dose 20,000 UNIT; Start 06/16/18 at 18:30 Amikacin Sulfate (Amikacin Iv Per Pharmacy) AMIKACIN PER PHARMACY NOTE XX ; Start 06/17/18 at 11:30; Stop 06/22/18 at 11:29 Amlodipine Besylate (Norvasc) 5 mg DAILY PO Last administered on 06/19/18 09:03; Admin Dose 5 MG; Start 06/17/18 at 11:30 Amikacin Sulfate 350 mg/Sodium Chloride 101.4 ml @ 102 mls/hr Q36H IVPB Last administered on 06/19/18 02:15; Admin Dose 102 MLS/HR; Start 06/17/18 at 14:00; Stop 06/22/18 at 13:59 CELESTINE MURPHY M.D. June 19, 2018 18:38
[2018-06-20] VITALS (23 sets, daily range): BP systolic 98–137; BP diastolic 61–69; PULSE 62–81; RESP 16–26
[2018-06-20] MEDS: LORAZEPAM 2 MG INJ IV PRN (00:38)
[2018-06-20] MEDS: METOCLOPRAMIDE 10 MG INJ IV SCH ×4 (05:57→23:34)
[2018-06-20] MEDS: METOPROLOL 25 MG TAB GTB SCH ×3 (05:58→22:41)
[2018-06-20] MEDS: BUMETANIDE 1 MG TAB GTB SCH ×2 (05:58→18:13)
[2018-06-20] MEDS: CHOLESTYRAMINE (LIGHT) 4 GM PACKET PO SCH ×4 (06:03→22:41)
[2018-06-20] MEDS: VANCOMYCIN HCL 250 MG/5ML POSYG GTB SCH ×2 (09:08→20:40)
[2018-06-20] MEDS: FAMOTIDINE 20 MG TAB PEG SCH (09:08)
[2018-06-20] MEDS: ZINC SULFATE 220 MG CAP GTB SCH (09:08)
[2018-06-20] MEDS: CITRIC ACID/NA CITRATE 30 ML CUP PO SCH ×2 (09:08→20:41)
[2018-06-20] MEDS: AMLODIPINE 5 MG TAB PO SCH (09:08)
[2018-06-20] MEDS: MULTIVITAMINS 30 ML CUP GTB SCH (09:08)
[2018-06-20] MEDS: ASCORBIC ACID 500 MG TAB GTB SCH (09:09)
[2018-06-20] MEDS: AMIODARONE 200 MG TAB PO SCH ×2 (09:09→20:41)
[2018-06-20] MEDS: SPIRONOLACTONE 25 MG TAB GTB SCH (09:09)
[2018-06-20] MEDS: COLLAGENASE 5 GM (UD JAR) TOP SCH (09:10)
[2018-06-20] MEDS: BALSAM PERU/CASTOR OIL 60 GM TUBE TOP SCH ×2 (09:10→20:42)
[2018-06-20] MEDS: NYSTATIN 30 GM POWDER BTL TOP SCH ×2 (09:10→20:41)
[2018-06-20] MEDS: morphine LIQ (10 MG/5 ML) CUP PEG PRN ×3 (09:14→20:41)
--- NOTE | 2018-06-20 11:32 | CONS ---
Assessment/Plan Assessment/Plan Hospital Course (Demo Recall) 1. Nonoliguric acute kidney injury on top of chronic kidney disease stage IIIB/IV, with previous baseline creatinine of around 2 mg/dL. Etiology of acute kidney injury is secondary to acute tubular necrosis. The patient is status post hemodialysis. Renal function improving. Continue current treatment plan, supportive care, renally dose all medications. 2. Volume overload, improving. Continue current diuretic regimen. 3. Hypernatremia, improved. Continue free water flushes. 4. Hypokalemia. Continue to monitor and replete as needed. 5. Metabolic acidosis. decrease Bicitra. 6. Hypomagnesemia. Continue to monitor and replete. 7. Anemia. Monitor hemoglobin and hematocrit levels. We will give Epogen as needed. 8. Mineral bone disorder. Monitor calcium and phosphorus levels. 9. Ventilator-dependent respiratory failure. Vent settings and ABG was reviewed. Continue to monitor. 10. Sepsis, status post shock. The patient is completing antibiotic course. 11. Lower extremity wounds. Continue wound care. 12. Dysphagia. Continue tube feeding. 13. Encephalopathy. Continue to monitor. Consultation Date/Type/Reason Admit Date/Time May 06, 2018 at 17:38 Initial Consult Date 05/10/18 Requesting Provider: ROLAND GIRON MD Date/Time of Note DATE: 06/20/18 TIME: 11:30 24 HR Interval Summary Free Text/Dictation adequate urine output no emesis afebrile d/w rn gen nad cv rrr pulm ctab abd soft, nd, nt +bs ext: no edema Exam/Review of Systems Exam Vitals Vital Signs Date Temp Pulse Resp B/P (MAP) Pulse Ox O2 O2 Flow FiO2 Time Delivery Rate 06/20/18 62 08:13 06/20/18 98.7 18 129/61 98 Mechanical 08:02 (83) Ventilator 06/20/18 30 05:47 Intake and Output 06/19/18 06/19/18 06/20/18 1515:00 23:00 07:00 IntakeIntake Total 780 ml 480 ml OutputOutput Total 900 ml 1050 ml BalanceBalance -120 ml -570 ml Results Result Diagram: 06/20/18 0613 06/20/18 0613 Results 24hrs Laboratory Tests Test 06/20/18 06:13 White Blood Count 9.7 Red Blood Count 2.18 L Hemoglobin 7.4 L Hematocrit 24.1 L Mean Corpuscular Volume 110.6 H Mean Corpuscular Hemoglobin 33.9 H Mean Corpuscular Hemoglobin Concent 30.7 L Red Cell Distribution Width 25.4 H Platelet Count 301 Mean Platelet Volume 10.0 Immature Granulocytes % 0.500 H Neutrophils % 80.9 H Lymphocytes % 8.8 L Monocytes % 5.1 Eosinophils % 4.6 Basophils % 0.1 Nucleated Red Blood Cells % 0.0 Immature Granulocytes # 0.050 H Neutrophils # 7.8 H Lymphocytes # 0.9 Monocytes # 0.5 Eosinophils # 0.4 Basophils # 0.0 Nucleated Red Blood Cells # 0.0 Sodium Level 136 Potassium Level 3.6 Chloride Level 100 Carbon Dioxide Level 26 Anion Gap 10 Blood Urea Nitrogen 59 H Creatinine 1.56 H Est Glomerular Filtrat Rate mL/min Glucose Level 98 Calcium Level 9.3 Vitamin B12 Level 682 Folate > 20.0 H Medications Medication Current Medications IV Flush (NS 10 ml) 10 ml PRN IV ; Start 05/06/18 at 20:30 Ascorbic Acid (Vitamin C) 500 mg DAILY GTB Last administered on 06/20/18 09:09; Admin Dose 500 MG; Start 05/07/18 at 09:00 Albuterol/ Ipratropium (Duoneb) 3 ml Q2H RESP THERAPY PRN HHN SHORTNESS OF BREATH; Start 05/06/18 at 23:30 Zinc Sulfate (Zinc Sulfate) 220 mg DAILY GTB Last administered on 06/20/18 09:08; Admin Dose 220 MG; Start 05/07/18 at 09:00 Ondansetron HCl (Zofran Tab) 4 mg Q6H PRN GTB NAUSEA AND/OR VOMITING Last administered on 05/31/18 16:47; Admin Dose 4 MG; Start 05/07/18 at 00:15 Multivitamins (Multivitamin) 30 ml DAILY GTB Last administered on 06/20/18 09:08; Admin Dose 30 ML; Start 05/07/18 at 09:00 Miscellaneous Information (Pending Santyl Order For Wound Care) This patient goldman... PRN PRN XX WOUND CARE; Start 05/09/18 at 17:00 Spironolactone (Aldactone) 50 mg DAILY GTB Last administered on 06/20/18 09:09; Admin Dose 50 MG; Start 05/21/18 at 09:00 Famotidine (Pepcid) 20 mg DAILY PEG Last administered on 06/20/18 09:08; Admin Dose 20 MG; Start 05/23/18 at 09:00 Morphine Sulfate (morphine) 6 mg Q4H PRN PEG SEVERE PAIN LEVEL 7-10 Last administered on 06/20/18 09:14; Admin Dose 6 MG; Start 05/22/18 at 17:00 Albumin Human 100 ml @ 100 mls/hr DURING DIALYSIS PRN IV hypotension on hd Last administered on 05/29/18 14:49; Admin Dose 100 MLS/HR; Start 05/27/18 at 07:30 Cholestyramine Resin (Questran Light) 4 gm 0600,1200,1800,2300 PO Last administered on 06/20/18 06:03; Admin Dose 4 GM; Start 05/27/18 at 18:00 Lorazepam (Ativan) 0.5 mg Q4H PRN IV ANXIETY Last administered on 06/20/18 00:38; Admin Dose 0.5 MG; Start 05/30/18 at 12:00 Acetaminophen (Tylenol Tab) 650 mg Q4H PRN PO MILD PAIN(1-3)OR ELEVATED TEMP Last administered on 06/10/18 21:44; Admin Dose 650 MG; Start 05/31/18 at 13:00 Metoclopramide HCl (Reglan) 5 mg Q6 IV Last administered on 06/20/18 05:57; Admin Dose 5 MG; Start 05/31/18 at 13:00 Collagenase (Santyl) 1 applic DAILY TOP Last administered on 06/20/18 09:10; Admin Dose 1 APPLIC; Start 06/01/18 at 09:00 Clonidine (Catapres) 0.1 mg Q6H PRN PO ELEVATED BLOOD PRESSURE Last administered on 06/17/18 05:59; Admin Dose 0.1 MG; Start 06/03/18 at 03:30 Citric Acid/ Sodium Citrate (Bicitra) 30 ml TID PO Last administered on 06/20/18 09:08; Admin Dose 30 ML; Start 06/06/18 at 13:00 Metoprolol Tartrate (Lopressor) 75 mg Q8 GTB Last administered on 06/20/18 05:58; Admin Dose 75 MG; Start 06/08/18 at 14:00 Bumetanide (Bumex) 1 mg BID DIURETICS GTB Last administered on 06/20/18 05:58; Admin Dose 1 MG; Start 06/11/18 at 18:00 Amiodarone HCl (Cordarone) 200 mg Q12 PO Last administered on 06/20/18 09:09; Admin Dose 200 MG; Start 06/12/18 at 21:00 Collagenase (Santyl) 1 applic PRN PRN TOP WHEN SOILED; Start 06/13/18 at 01:00 Nystatin (Nystatin Powder) 1 applic BID TOP Last administered on 06/20/18 09:10; Admin Dose 1 APPLIC; Start 06/13/18 at 14:00 Vancomycin HCl (Vancomycin Oral Syringe) 250 mg BID GTB Last administered on 06/20/18 09:08; Admin Dose 250 MG; Start 06/15/18 at 09:00; Stop 06/22/18 at 08:59 Vancomycin HCl (Vancomycin Oral Syringe) 250 mg DAILY GTB ; Start 06/22/18 at 09:00; Stop 06/29/18 at 08:59 Vancomycin HCl (Vancomycin Oral Syringe) 250 mg Q48H GTB ; Start 06/29/18 at 14:00; Stop 07/06/18 at 13:59 Epoetin Zen-epbx (RETACRIT(esrd)) 20,000 unit Tu@1700 SC Last administered on 06/16/18 20:13; Admin Dose 20,000 UNIT; Start 06/16/18 at 18:30 Amikacin Sulfate (Amikacin Iv Per Pharmacy) AMIKACIN PER PHARMACY NOTE XX ; Start 06/17/18 at 11:30; Stop 06/22/18 at 11:29 Amlodipine Besylate (Norvasc) 5 mg DAILY PO Last administered on 06/20/18 09:08; Admin Dose 5 MG; Start 06/17/18 at 11:30 Amikacin Sulfate 350 mg/Sodium Chloride 101.4 ml @ 102 mls/hr Q36H IVPB Last administered on 06/19/18 02:15; Admin Dose 102 MLS/HR; Start 06/17/18 at 14:00; Stop 06/22/18 at 13:59 Miscellaneous Information (*Order Clarification Bulletin) MEDICATION REQUIRES CLARIFICATION:PLE... Q8H XX ; Start 06/20/18 at 09:30 ALIZE FLORES MD June 20, 2018 11:32
--- NOTE | 2018-06-20 12:11 | PN ---
Date/Time of Note Date/Time of Note DATE: 06/20/18 TIME: 12:11 Assessment/Plan VTE Prophylaxis Risk score (from Ns)>0 risk: 6 SCD applied (from Ns): Yes Pharmacological prophylaxis: LMWH Lines/Catheters IV Catheter Type (from [facility]): PICC Line Central line still needed: Yes Urinary Cath still in place: Yes Reason Cath still needed: skin wounds contaminated by urine Assessment/Plan Hospital Course Hypokalemia fu AM bmp -Atrial fibrillation was rapid ventricular response, s/p amiodarone drip. Rate is well controlled on p.o. amiodarone and metoprolol. Dr. Scanlon is following in cardiology consultation. -Septic shock secondary to urinary tract infection, anterior neck soft tissue infection, and C. difficile colitis, resolving. Continue antibiotics per ID. Dr. Doyle is following in infection disease consultation. -Acute respiratory failure requiring intubation and ventilatory support. Dr. Lambert is following in pulmonology consultation. -S/p tracheostomy on 05/29/18. -Acute kidney injury on chronic kidney disease. Started on HD this admission. Dr. Mckeon is following in nephrology consultation. -Anemia of chronic inflammation, stool for OB is negative, status post blood transfusion. Continue Epogen. -Metabolic acidosis, resolved. -Acute diastolic congestive heart failure. -Paroxysmal atrial fibrillation -COPD -Dysphagia with PEG. -G-tube mild malfunction, changed by GI Dr. Carolina is following in gastroenterology consultation. -Obesity Result Diagram: 06/20/18 0613 06/20/18 0613 Results 24hrs Laboratory Tests Test 06/20/18 06:13 White Blood Count 9.7 Red Blood Count 2.18 L Hemoglobin 7.4 L Hematocrit 24.1 L Mean Corpuscular Volume 110.6 H Mean Corpuscular Hemoglobin 33.9 H Mean Corpuscular Hemoglobin Concent 30.7 L Red Cell Distribution Width 25.4 H Platelet Count 301 Mean Platelet Volume 10.0 Immature Granulocytes % 0.500 H Neutrophils % 80.9 H Lymphocytes % 8.8 L Monocytes % 5.1 Eosinophils % 4.6 Basophils % 0.1 Nucleated Red Blood Cells % 0.0 Immature Granulocytes # 0.050 H Neutrophils # 7.8 H Lymphocytes # 0.9 Monocytes # 0.5 Eosinophils # 0.4 Basophils # 0.0 Nucleated Red Blood Cells # 0.0 Sodium Level 136 Potassium Level 3.6 Chloride Level 100 Carbon Dioxide Level 26 Anion Gap 10 Blood Urea Nitrogen 59 H Creatinine 1.56 H Est Glomerular Filtrat Rate mL/min Glucose Level 98 Calcium Level 9.3 Vitamin B12 Level 682 Folate > 20.0 H Subjective 24 Hr Interval Summary Free Text/Dictation Patient resting comfortably Exam/Review of Systems Exam Vitals Vital Signs Date Temp Pulse Resp B/P (MAP) Pulse Ox O2 O2 Flow FiO2 Time Delivery Rate 06/20/18 98.7 70 16 137/61 100 Mechanical 11:30 (86) Ventilator 06/20/18 30 05:47 Intake and Output 06/19/18 06/19/18 06/20/18 1515:00 23:00 07:00 IntakeIntake Total 780 ml 480 ml OutputOutput Total 900 ml 1050 ml BalanceBalance -120 ml -570 ml Constitutional: well developed Head: normocephalic, atraumatic Neck: supple Respiratory: diminished breath sounds Cardiovascular: regular rate and rhythm Gastrointestinal: soft, non-tender Extremities: normal pulses Results Results 24hrs Laboratory Tests Test 06/20/18 06:13 White Blood Count 9.7 Red Blood Count 2.18 L Hemoglobin 7.4 L Hematocrit 24.1 L Mean Corpuscular Volume 110.6 H Mean Corpuscular Hemoglobin 33.9 H Mean Corpuscular Hemoglobin Concent 30.7 L Red Cell Distribution Width 25.4 H Platelet Count 301 Mean Platelet Volume 10.0 Immature Granulocytes % 0.500 H Neutrophils % 80.9 H Lymphocytes % 8.8 L Monocytes % 5.1 Eosinophils % 4.6 Basophils % 0.1 Nucleated Red Blood Cells % 0.0 Immature Granulocytes # 0.050 H Neutrophils # 7.8 H Lymphocytes # 0.9 Monocytes # 0.5 Eosinophils # 0.4 Basophils # 0.0 Nucleated Red Blood Cells # 0.0 Sodium Level 136 Potassium Level 3.6 Chloride Level 100 Carbon Dioxide Level 26 Anion Gap 10 Blood Urea Nitrogen 59 H Creatinine 1.56 H Est Glomerular Filtrat Rate mL/min Glucose Level 98 Calcium Level 9.3 Vitamin B12 Level 682 Folate > 20.0 H Medications Medication Current Medications IV Flush (NS 10 ml) 10 ml PRN IV ; Start 05/06/18 at 20:30 Ascorbic Acid (Vitamin C) 500 mg DAILY GTB Last administered on 06/20/18 09:09; Admin Dose 500 MG; Start 05/07/18 at 09:00 Albuterol/ Ipratropium (Duoneb) 3 ml Q2H RESP THERAPY PRN HHN SHORTNESS OF BREATH; Start 05/06/18 at 23:30 Zinc Sulfate (Zinc Sulfate) 220 mg DAILY GTB Last administered on 06/20/18 09:08; Admin Dose 220 MG; Start 05/07/18 at 09:00 Ondansetron HCl (Zofran Tab) 4 mg Q6H PRN GTB NAUSEA AND/OR VOMITING Last administered on 05/31/18 16:47; Admin Dose 4 MG; Start 05/07/18 at 00:15 Multivitamins (Multivitamin) 30 ml DAILY GTB Last administered on 06/20/18 09:08; Admin Dose 30 ML; Start 05/07/18 at 09:00 Miscellaneous Information (Pending Santyl Order For Wound Care) This patient goldman... PRN PRN XX WOUND CARE; Start 05/09/18 at 17:00 Spironolactone (Aldactone) 50 mg DAILY GTB Last administered on 06/20/18 09:09; Admin Dose 50 MG; Start 05/21/18 at 09:00 Famotidine (Pepcid) 20 mg DAILY PEG Last administered on 06/20/18 09:08; Admin Dose 20 MG; Start 05/23/18 at 09:00 Morphine Sulfate (morphine) 6 mg Q4H PRN PEG SEVERE PAIN LEVEL 7-10 Last administered on 06/20/18 09:14; Admin Dose 6 MG; Start 05/22/18 at 17:00 Albumin Human 100 ml @ 100 mls/hr DURING DIALYSIS PRN IV hypotension on hd Last administered on 05/29/18 14:49; Admin Dose 100 MLS/HR; Start 05/27/18 at 07:30 Cholestyramine Resin (Questran Light) 4 gm 0600,1200,1800,2300 PO Last adm inistered on 06/20/18 06:03; Admin Dose 4 GM; Start 05/27/18 at 18:00 Lorazepam (Ativan) 0.5 mg Q4H PRN IV ANXIETY Last administered on 06/20/18 00:38; Admin Dose 0.5 MG; Start 05/30/18 at 12:00 Acetaminophen (Tylenol Tab) 650 mg Q4H PRN PO MILD PAIN(1-3)OR ELEVATED TEMP Last administered on 06/10/18 21:44; Admin Dose 650 MG; Start 05/31/18 at 13:00 Metoclopramide HCl (Reglan) 5 mg Q6 IV Last administered on 06/20/18 05:57; Admin Dose 5 MG; Start 05/31/18 at 13:00 Collagenase (Santyl) 1 applic DAILY TOP Last administered on 06/20/18 09:10; Admin Dose 1 APPLIC; Start 06/01/18 at 09:00 Clonidine (Catapres) 0.1 mg Q6H PRN PO ELEVATED BLOOD PRESSURE Last administered on 06/17/18 05:59; Admin Dose 0.1 MG; Start 06/03/18 at 03:30 Metoprolol Tartrate (Lopressor) 75 mg Q8 GTB Last administered on 06/20/18 05:58; Admin Dose 75 MG; Start 06/08/18 at 14:00 Bumetanide (Bumex) 1 mg BID DIURETICS GTB Last administered on 06/20/18 05:58; Admin Dose 1 MG; Start 06/11/18 at 18:00 Amiodarone HCl (Cordarone) 200 mg Q12 PO Last administered on 06/20/18 09:09; Admin Dose 200 MG; Start 06/12/18 at 21:00 Collagenase (Santyl) 1 applic PRN PRN TOP WHEN SOILED; Start 06/13/18 at 01:00 Nystatin (Nystatin Powder) 1 applic BID TOP Last administered on 06/20/18 09:10; Admin Dose 1 APPLIC; Start 06/13/18 at 14:00 Vancomycin HCl (Vancomycin Oral Syringe) 250 mg BID GTB Last administered on 06/20/18 09:08; Admin Dose 250 MG; Start 06/15/18 at 09:00; Stop 06/22/18 at 08:59 Vancomycin HCl (Vancomycin Oral Syringe) 250 mg DAILY GTB ; Start 06/22/18 at 09:00; Stop 06/29/18 at 08:59 Vancomycin HCl (Vancomycin Oral Syringe) 250 mg Q48H GTB ; Start 06/29/18 at 14:00; Stop 5/20/19 at 13:59 Epoetin Zen-epbx (RETACRIT(esrd)) 20,000 unit Tu@1700 SC Last administered on 06/16/18at 20:13; Admin Dose 20,000 UNIT; Start 06/16/18 at 18:30 Amikacin Sulfate (Amikacin Iv Per Pharmacy) AMIKACIN PER PHARMACY NOTE XX ; Start 06/17/18 at 11:30; Stop 06/22/18 at 11:29 Amlodipine Besylate (Norvasc) 5 mg DAILY PO Last administered on 06/20/18at 09:08; Admin Dose 5 MG; Start 06/17/18 at 11:30 Amikacin Sulfate 350 mg/Sodium Chloride 101.4 ml @ 102 mls/hr Q36H IVPB Last administered on 06/19/18at 02:15; Admin Dose 102 MLS/HR; Start 06/17/18 at 14:00; Stop 06/22/18 at 13:59 Miscellaneous Information (*Order Clarification Bulletin) MEDICATION REQUIRES CLARIFICATION:PLE... Q8H XX ; Start 06/20/18 at 09:30 Citric Acid/ Sodium Citrate (Bicitra) 30 ml BID PO ; Start 06/20/18 at 21:00 STEPHANIE BAL June 20, 2018 12:11
--- NOTE | 2018-06-20 15:42 | CONS ---
Assessment/Plan Assessment/Plan Assessment/Plan (Daily) Interval hx: Pt alert. Is having abdominal pain, tender to palpitation. 1. ABD pain -CT of abd 2. Renal failure.- on HD 3. Vent dependent resp failure 4. Chronic obstructive pulmonary disease. 5. Bipolar. 6. Paroxysmal atrial fibrillation. 7. Anemia of chronic disease. 8. CHF 9. Diarrhea 11. Diarrhea -s/p c diff colitis -taper off of vanco 12. H/O deep esophageal ulcer 13. Dysphagia with g tube 14. Anemia of chronic disease 15. UTI with positive cx 16. Macrocytosis CT of abd/pelvis 06/16 1. Nonspecific bibasilar ground-glass densities and the airspace disease, suggesting bilateral pneumonia versus pulmonary edema. 2. Atrophy of the left kidney. 2.3 cm left renal cyst. The right kidney demonstrates compensatory hypertrophy. No calculus or hydronephrosis in either kidney. 3. Atherosclerosis of the aorta. 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 No leak or rupture. 4. Mild nonspecific ascites in the pelvis. 5. Air-fluid levels are seen throughout the small bowel and colon. Consider mild ileus versus enterocolitis. Patient has good bowel movement and there is no evidence of emesis or nausea PLAN: Ok to resume tube feeds Continue with reglan and pepcid Taper vanco to off Monitor tube feeds residuals q 6 hours Monitor hemoglobin hematocrit, there is a significant drop in her hematocrit Will send for B12 and folic acid level, both were within normal limit Consultation Date/Type/Reason Admit Date/Time May 06, 2018 at 17:38 Initial Consult Date 05/10/18 Requesting Provider: ROLAND GIRON MD Date/Time of Note DATE: 06/20/18 TIME: 15:42 24 HR Interval Summary Constitutional: no complaints, improved Exam/Review of Systems Exam Vitals Vital Signs Date Temp Pulse Resp B/P (MAP) Pulse Ox O2 O2 Flow FiO2 Time Delivery Rate 06/20/18 69 12:13 06/20/18 20 100 30 11:55 06/20/18 98.7 137/61 Mechanical 11:30 (86) Ventilator Intake and Output 06/19/18 06/19/18 06/20/18 1515:00 23:00 07:00 IntakeIntake Total 780 ml 480 ml OutputOutput Total 900 ml 1050 ml BalanceBalance -120 ml -570 ml Constitutional: alert, oriented, well developed Psych: no complaints, nl mood/affect Head: normocephalic, atraumatic Eyes: nl conjunctiva, EOMI, nl lids, nl sclera, PERRL ENMT: nl external ears & nose, nl lips & teeth, nl nasal mucosa & septum, intubated Neck: supple, non-tender Respiratory: clear to auscultation, normal air movement Cardiovascular: regular rate and rhythm, nl pulses Gastrointestinal: soft, nl liver, spleen, non-tender Musculoskeletal: nl extremities to inspection, nl gait and stance Extremities: normal pulses Neurological: EMERGENCY MEDICINE II-XII intact, nl mental status, nl speech, nl strength Skin: nl turgor; No rash or lesions Lymph: nl lymph nodes Results Result Diagram: 06/20/18 0613 06/20/18 0613 Results 24hrs Laboratory Tests Test 06/20/18 06:13 White Blood Count 9.7 Red Blood Count 2.18 L Hemoglobin 7.4 L Hematocrit 24.1 L Mean Corpuscular Volume 110.6 H Mean Corpuscular Hemoglobin 33.9 H Mean Corpuscular Hemoglobin Concent 30.7 L Red Cell Distribution Width 25.4 H Platelet Count 301 Mean Platelet Volume 10.0 Immature Granulocytes % 0.500 H Neutrophils % 80.9 H Lymphocytes % 8.8 L Monocytes % 5.1 Eosinophils % 4.6 Basophils % 0.1 Nucleated Red Blood Cells % 0.0 Immature Granulocytes # 0.050 H Neutrophils # 7.8 H Lymphocytes # 0.9 Monocytes # 0.5 Eosinophils # 0.4 Basophils # 0.0 Nucleated Red Blood Cells # 0.0 Sodium Level 136 Potassium Level 3.6 Chloride Level 100 Carbon Dioxide Level 26 Anion Gap 10 Blood Urea Nitrogen 59 H Creatinine 1.56 H Est Glomerular Filtrat Rate mL/min Glucose Level 98 Calcium Level 9.3 Vitamin B12 Level 682 Folate > 20.0 H Medications Medication Current Medications IV Flush (NS 10 ml) 10 ml PRN IV ; Start 05/06/18 at 20:30 Ascorbic Acid (Vitamin C) 500 mg DAILY GTB Last administered on 06/20/18at 09:09; Admin Dose 500 MG; Start 05/07/18 at 09:00 Albuterol/ Ipratropium (Duoneb) 3 ml Q2H RESP THERAPY PRN HHN SHORTNESS OF BREATH; Start 05/06/18 at 23:30 Zinc Sulfate (Zinc Sulfate) 220 mg DAILY GTB Last administered on 06/20/18 09:08; Admin Dose 220 MG; Start 05/07/18 at 09:00 Ondansetron HCl (Zofran Tab) 4 mg Q6H PRN GTB NAUSEA AND/OR VOMITING Last administered on 05/31/18 16:47; Admin Dose 4 MG; Start 05/07/18 at 00:15 Multivitamins (Multivitamin) 30 ml DAILY GTB Last administered on 06/20/18 09:08; Admin Dose 30 ML; Start 05/07/18 at 09:00 Miscellaneous Information (Pending Santyl Order For Wound Care) This patient goldman... PRN PRN XX WOUND CARE; Start 05/09/18 at 17:00 Spironolactone (Aldactone) 50 mg DAILY GTB Last administered on 06/20/18 09:09; Admin Dose 50 MG; Start 05/21/18 at 09:00 Famotidine (Pepcid) 20 mg DAILY PEG Last administered on 06/20/18 09:08; Admin Dose 20 MG; Start 05/23/18 at 09:00 Morphine Sulfate (morphine) 6 mg Q4H PRN PEG SEVERE PAIN LEVEL 7-10 Last administered on 06/20/18 09:14; Admin Dose 6 MG; Start 05/22/18 at 17:00 Albumin Human 100 ml @ 100 mls/hr DURING DIALYSIS PRN IV hypotension on hd Last administered on 05/29/18 14:49; Admin Dose 100 MLS/HR; Start 05/27/18 at 07:30 Cholestyramine Resin (Questran Light) 4 gm 0600,1200,1800,2300 PO Last administered on 06/20/18 12:16; Admin Dose 4 GM; Start 05/27/18 at 18:00 Lorazepam (Ativan) 0.5 mg Q4H PRN IV ANXIETY Last administered on 06/20/18 00:38; Admin Dose 0.5 MG; Start 05/30/18 at 12:00 Acetaminophen (Tylenol Tab) 650 mg Q4H PRN PO MILD PAIN(1-3)OR ELEVATED TEMP Last administered on 06/10/18 21:44; Admin Dose 650 MG; Start 05/31/18 at 13:00 Metoclopramide HCl (Reglan) 5 mg Q6 IV Last administered on 06/20/18 12:16; Admin Dose 5 MG; Start 05/31/18 at 13:00 Collagenase (Santyl) 1 applic DAILY TOP Last administered on 06/20/18 09:10; Admin Dose 1 APPLIC; Start 06/01/18 at 09:00 Clonidine (Catapres) 0.1 mg Q6H PRN PO ELEVATED BLOOD PRESSURE Last adminis tered on 06/17/18 05:59; Admin Dose 0.1 MG; Start 06/03/18 at 03:30 Metoprolol Tartrate (Lopressor) 75 mg Q8 GTB Last administered on 06/20/18 05:58; Admin Dose 75 MG; Start 06/08/18 at 14:00 Bumetanide (Bumex) 1 mg BID DIURETICS GTB Last administered on 06/20/18 05:58; Admin Dose 1 MG; Start 06/11/18 at 18:00 Amiodarone HCl (Cordarone) 200 mg Q12 PO Last administered on 06/20/18 09:09; Admin Dose 200 MG; Start 06/12/18 at 21:00 Collagenase (Santyl) 1 applic PRN PRN TOP WHEN SOILED; Start 06/13/18 at 01:00 Nystatin (Nystatin Powder) 1 applic BID TOP Last administered on 06/20/18 09:10; Admin Dose 1 APPLIC; Start 06/13/18 at 14:00 Vancomycin HCl (Vancomycin Oral Syringe) 250 mg BID GTB Last administered on 06/20/18 09:08; Admin Dose 250 MG; Start 06/15/18 at 09:00; Stop 06/22/18 at 08 :59 Vancomycin HCl (Vancomycin Oral Syringe) 250 mg DAILY GTB ; Start 06/22/18 at 09:00; Stop 06/29/18 at 08:59 Vancomycin HCl (Vancomycin Oral Syringe) 250 mg Q48H GTB ; Start 06/29/18 at 14:00; Stop 07/06/18 at 13:59 Epoetin Zen-epbx (RETACRIT(esrd)) 20,000 unit Tu@1700 SC Last administered on 06/16/18 20:13; Admin Dose 20,000 UNIT; Start 06/16/18 at 18:30 Amikacin Sulfate (Amikacin Iv Per Pharmacy) AMIKACIN PER PHARMACY NOTE XX ; Start 06/17/18 at 11:30; Stop 06/22/18 at 11:29 Amlodipine Besylate (Norvasc) 5 mg DAILY PO Last administered on 06/20/18at 09:08; Admin Dose 5 MG; Start 06/17/18 at 11:30 Amikacin Sulfate 350 mg/Sodium Chloride 101.4 ml @ 102 mls/hr Q36H IVPB Last administered on 06/19/18at 02:15; Admin Dose 102 MLS/HR; Start 06/17/18 at 14:00; Stop 06/22/18 at 13:59 Miscellaneous Information (*Order Clarification Bulletin) MEDICATION REQUIRES CLARIFICATION:PLE... Q8H XX ; Start 06/20/18 at 09:30 Citric Acid/ Sodium Citrate (Bicitra) 30 ml BID PO ; Start 06/20/18 at 21:00 QUINTEN UMAÑA MD June 20, 2018 15:42
[2018-06-20] MEDS: AMIKACIN 350 MG in SOD CHLORIDE 0.9% 100 ML IVPB SCH (16:09)
--- NOTE | 2018-06-20 17:46 | CONS ---
Consult Date/Type/Reason Admit Date/Time May 06, 2018 at 17:38 Initial Consult Date 05/10/18 Type of Consultation: Pulm/CCM Requesting Provider: ROLAND GIRON MD Date/Time of Note DATE: 06/20/18 TIME: 17:45 Subjective No events. Stable on MV. Objective Vitals Vital Signs Date Temp Pulse Resp B/P (MAP) Pulse Ox O2 O2 Flow FiO2 Time Delivery Rate 06/20/18 69 16:31 06/20/18 98.7 18 135/64 100 Mechanical 14:00 (87) Ventilator 06/20/18 30 11:55 Intake and Output 06/19/18 06/19/18 06/20/18 1515:00 23:00 07:00 IntakeIntake Total 780 ml 480 ml OutputOutput Total 900 ml 1050 ml BalanceBalance -120 ml -570 ml Exam HEENT: Neck supple; no JVD; no LAD: + trach CVS: Irreg irreg, S1 and S2 CHEST: Coarse BS B/L ABD: Soft, NT, + BS EXT: No c/c; + edema Results/Medications Result Diagram: 06/20/1861206/20/18612 Results 24 hrs Laboratory Tests Test 06/20/18 06:13 White Blood Count 9.7 Red Blood Count 2.18 L Hemoglobin 7.4 L Hematocrit 24.1 L Mean Corpuscular Volume 110.6 H Mean Corpuscular Hemoglobin 33.9 H Mean Corpuscular Hemoglobin Concent 30.7 L Red Cell Distribution Width 25.4 H Platelet Count 301 Mean Platelet Volume 10.0 Immature Granulocytes % 0.500 H Neutrophils % 80.9 H Lymphocytes % 8.8 L Monocytes % 5.1 Eosinophils % 4.6 Basophils % 0.1 Nucleated Red Blood Cells % 0.0 Immature Granulocytes # 0.050 H Neutrophils # 7.8 H Lymphocytes # 0.9 Monocytes # 0.5 Eosinophils # 0.4 Basophils # 0.0 Nucleated Red Blood Cells # 0.0 Sodium Level 136 Potassium Level 3.6 Chloride Level 100 Carbon Dioxide Level 26 Anion Gap 10 Blood Urea Nitrogen 59 H Creatinine 1.56 H Est Glomerular Filtrat Rate mL/min Glucose Level 98 Calcium Level 9.3 Vitamin B12 Level 682 Folate > 20.0 H Home Meds Reported Medications Zinc Sulfate* (Zinc Sulfate*) 220 Mg Tablet, 220 MG GTB DAILY, TAB START DATE 05/04/18, END DATE 06/03/18 05/06/18 Diclofenac Sodium* (Voltaren* Gel) 1% -100 Gm Gel, 2 GM TOP TID, #1 TUB 05/06/18 Ascorbic Acid (Vitamin C) 500 Mg Tab, 500 MG GTB DAILY, TAB 05/06/18 Quetiapine Fumarate* (Seroquel*) 100 Mg Tablet, 600 MG GTB HS, #30 TAB 05/06/18 Protein Supplement (Promod) 946 Ml Liquid, 30 ML GTB BID 05/06/18 Epoetin Zen (Procrit) 20,000 Unit/1 Ml Vial, 31113 UNIT IJ Q TUE for FOR ANEMIA OF CKD, VIAL HOLD IFHGB IS EQUAL OR GREATER THAN 11 05/06/18 Ondansetron Hcl* (Ondansetron Hcl* Liq) 4 Mg/5 Ml Solution, 4 MG GTB Q6H PRN for NAUSEA AND/OR VOMITING, ML 05/06/18 Multivitamin with Minerals (Multivitamins with Minerals) 1 Each Tablet, 1 EACH GTB QAM, TAB 05/06/18 Metoprolol Tartrate* (Lopressor*) 25 Mg Tab, 25 MG GTB BID, #60 TAB HOLD FOR SBP<110 OR HR<60 05/06/18 Lorazepam* (Ativan* Intensol) 2 Mg/Ml Soln, 0.5 MG IV* Q6H PRN for ANXIETY, #1 BOTTLE START DATE 04/02/18, END DATE 06/01/18 05/06/18 Lidocaine (Lidocaine) 1 Each Adh..patch, 1 EACH TP Q12H 5% 05/06/18 Ipratropium-Albuterol (Ipratropium-Albuterol) 0.5-3 Mg/3 Ml Ampul.neb, 3 ML INHALATION Q6 PRN for BRONCHOSPASM, #30 VIAL 05/06/18 Ipratropium-Albuterol (Ipratropium-Albuterol) 0.5-3 Mg/3 Ml Ampul.neb, 3 ML INHALATION Q2H PRN for BRONCHOSPASM, #30 VIAL 05/06/18 Famotidine* (Famotidine*) 20 Mg Tablet, 20 MG GTB BID, #60 TAB 05/06/18 Valproic Acid* (Depakene*) 250 Mg/5 Ml Udc Syrup, 100 MG GTB QHS, ML 05/06/18 Clonidine Hcl* (Clonidine Hcl*) 0.1 Mg Tab, 0.1 MG GTB Q6 PRN for NEEDED, TAB FOR SBP>160 OR DBP>90 05/06/18 Aspirin* (Aspirin* Chew) 81 Mg Tab.chew, 81 MG GTB DAILY, TAB.CHEW 05/06/18 Medications Current Medications IV Flush (NS 10 ml) 10 ml PRN IV ; Start 05/06/18 at 20:30 Ascorbic Acid (Vitamin C) 500 mg DAILY GTB Last administered on 06/20/18 09:09; Admin Dose 500 MG; Start 05/07/18 at 09:00 Albuterol/ Ipratropium (Duoneb) 3 ml Q2H RESP THERAPY PRN HHN SHORTNESS OF BREATH; Start 05/06/18 at 23:30 Zinc Sulfate (Zinc Sulfate) 220 mg DAILY GTB Last administered on 06/20/18 09:08; Admin Dose 220 MG; Start 05/07/18 at 09:00 Ondansetron HCl (Zofran Tab) 4 mg Q6H PRN GTB NAUSEA AND/OR VOMITING Last administered on 05/31/18 16:47; Admin Dose 4 MG; Start 05/07/18 at 00:15 Multivitamins (Multivitamin) 30 ml DAILY GTB Last administered on 06/20/18 09:08; Admin Dose 30 ML; Start 05/07/18 at 09:00 Miscellaneous Information (Pending [facility] Order For Wound Care) This patient goldman... PRN PRN XX WOUND CARE; Start 05/09/18 at 17:00 Spironolactone (Aldactone) 50 mg DAILY GTB Last administered on 06/20/18 09:09; Admin Dose 50 MG; Start 05/21/18 at 09:00 Famotidine (Pepcid) 20 mg DAILY PEG Last administered on 06/20/18 09:08; Admin Dose 20 MG; Start 05/23/18 at 09:00 Morphine Sulfate (morphine) 6 mg Q4H PRN PEG SEVERE PAIN LEVEL 7-10 Last administered on 06/20/18 16:10; Admin Dose 6 MG; Start 05/22/18 at 17:00 Albumin Human 100 ml @ 100 mls/hr DURING DIALYSIS PRN IV hypotension on hd Last administered on 05/29/18 14:49; Admin Dose 100 MLS/HR; Start 05/27/18 at 07:30 Cholestyramine Resin (Questran Light) 4 gm 0600,1200,1800,2300 PO Last administered on 06/20/18 12:16; Admin Dose 4 GM; Start 05/27/18 at 18:00 Lorazepam (Ativan) 0.5 mg Q4H PRN IV ANXIETY Last administered on 06/20/18 00:38; Admin Dose 0.5 MG; Start 05/30/18 at 12:00 Acetaminophen (Tylenol Tab) 650 mg Q4H PRN PO MILD PAIN(1-3)OR ELEVATED TEMP Last administered on 06/10/18 21:44; Admin Dose 650 MG; Start 05/31/18 at 13:00 Metoclopramide HCl (Reglan) 5 mg Q6 IV Last administered on 06/20/18 12:16; Admin Dose 5 MG; Start 05/31/18 at 13:00 Collagenase (Santyl) 1 applic DAILY TOP Last administered on 06/20/18 09:10; Admin Dose 1 APPLIC; Start 06/01/18 at 09:00 Clonidine (Catapres) 0.1 mg Q6H PRN PO ELEVATED BLOOD PRESSURE Last administered on 06/17/18 05:59; Admin Dose 0.1 MG; Start 06/03/18 at 03:30 Metoprolol Tartrate (Lopressor) 75 mg Q8 GTB Last administered on 06/20/18 16:09; Admin Dose 75 MG; Start 06/08/18 at 14:00 Bumetanide (Bumex) 1 mg BID DIURETICS GTB Last administered on 06/20/18 05:58; Admin Dose 1 MG; Start 06/11/18 at 18:00 Amiodarone HCl (Cordarone) 200 mg Q12 PO Last administered on 06/20/18 09:09; Admin Dose 200 MG; Start 06/12/18 at 21:00 Collagenase (Santyl) 1 applic PRN PRN TOP WHEN SOILED; Start 06/13/18 at 01:00 Nystatin (Nystatin Powder) 1 applic BID TOP Last administered on 5/4/19at 09:10; Admin Dose 1 APPLIC; Start 06/13/18 at 14:00 Vancomycin HCl (Vancomycin Oral Syringe) 250 mg BID GTB Last administered on 06/20/18at 09:08; Admin Dose 250 MG; Start 06/15/18 at 09:00; Stop 06/22/18 at 08:59 Vancomycin HCl (Vancomycin Oral Syringe) 250 mg DAILY GTB ; Start 06/22/18 at 09:00; Stop 06/29/18 at 08:59 Vancomycin HCl (Vancomycin Oral Syringe) 250 mg Q48H GTB ; Start 06/29/18 at 14:00; Stop 07/06/18 at 13:59 Epoetin Zen-epbx (RETACRIT(esrd)) 20,000 unit Tu@1700 SC Last administered on 06/16/18at 20:13; Admin Dose 20,000 UNIT; Start 06/16/18 at 18:30 Amikacin Sulfate (Amikacin Iv Per Pharmacy) AMIKACIN PER PHARMACY NOTE XX ; Start 06/17/18 at 11:30; Stop 06/22/18 at 11:29 Amlodipine Besylate (Norvasc) 5 mg DAILY PO Last administered on 06/20/18at 09:08; Admin Dose 5 MG; Start 06/17/18 at 11:30 Amikacin Sulfate 350 mg/Sodium Chloride 101.4 ml @ 102 mls/hr Q36H IVPB Last administered on 06/20/18at 16:09; Admin Dose 102 MLS/HR; Start 06/17/18 at 14:00; Stop 06/22/18 at 13:59 Miscellaneous Information (*Order Clarification Bulletin) MEDICATION REQUIRES CLARIFICATION:PLE... Q8H XX ; Start 06/20/18 at 09:30 Citric Acid/ Sodium Citrate (Bicitra) 30 ml BID PO ; Start 06/20/18 at 21:00 Assessment/Plan Assessment/Plan (Daily) IMP: 1. Sepsis 2. Acute Renal Failure 3. VDRF 4. Encephalopathy 5. Anemia 6. H/O abdominal abscess 7. Atrial fibrillation with RVR RECS: 1. Vent support 2. CPT/suctioning 3. TF/Free H20 4. Rate control SALENA IRAHETA MD June 20, 2018 17:46
--- NOTE | 2018-06-20 22:18 | CONS ---
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 colonization of the airway by pseudomonas and ESBL+klebsiella - h/o possible, recurrent HCAP due to pseudomonas and ESBL+klebsiella - h/o recurrent HCAP due to MRSA and Enterobacter (culture of tracheal aspirate on 07/16/2017 that was collected at [facility]) . Pt took vancomycin and ceftazidime - h/o decannulation prior to admission - h/o tracheostomy on 06/11/2017 - h/o SIRS from UGIB in 2018 - h/o thoracentesis on 07/18/2017, transudative (protein <2, LDH 279) - h/o bleeding from the trach site in 2018 - h/o septic shock due to pneumonia, ARDS, bacteremia, fungemia in 2018 - h/o ARDS in 2018 - h/o smoking - COPD - h/o ILD per medical record - h/o PAF, improved # GI - possible ileus or enterocolitis on CT abd/pel 06/15/2018 - C diff colitis, diagnosed on 05/11/2018. IV metronidazole (05/11/2018-05/29/2018; restart 05/30/2018-06/05/18), pGT vancomycin induction followed by taper (05/11/2018-) - h/o intermittent diarrhea, Pt had multiple negative C. diff tests at [facility] at OSH in the past; none was positive until 05/11/2018 - dysphagia - h/o PEG placement 06/13/2018 - protein calorie malnutrition - h/o coffee ground emesis/UGIB on 12/23/2017 due to deep ulceration of distal esophagus and gastritis on EGD 12/26/2017. No e/o H. pylori - h/o possible appendicitis on CT on 11/22/2017, Pt took ertapenem (11/24/2017- 12/01/2017) - h/o extensive adhesions lower abdominal and pelvis between small bowel to each other and to colon and to abdominal wall, anterior pelvic wall chronic abscess secondary to probably an old perforated diverticulitis, torsion of small bowel a round these dense adhesion causing multiple obstructive points - h/o laparoscopic exploration and extensive lysis of adhesions and drainage of anterior pelvic wall abscess 09/16/2017. Cultures were negative, no e/o malignancy. 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 Pt is on amikacin x 5 days (06/17- 06/22/2018) - UTI due to pseudomonas and ESBL+klebsiella on 06/09/2018, Pt took one dose of fosfomycin on 06/10/2018 and cipro 06/12-06/15/2018 - anasarca - started on HD on 05/15/2018, via Juan in R groin - recurrent NATHAN on CKD - 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 Her strain of CRE was sensitive to colistin, Avycaz, and Vabomere but resistant to Zerbaxa (reported on 05/19/2018) - Hyponatremia - Hyperkalemia, now hypokalemia - Metabolic acidosis - adrenal insufficiency - h/o vaginal bleed in 2018 - h/o colonization of urinary tract by ESBL+klebsiella, VRE - h/o recurrent, symptomatic UTI due to carbapenem-resistant kleb (MDR strain) per urine culture 10/04/17, 10/09/17, 10/21/2017, P took colistin (10/09/2017- 10/15/2017), fosfomycin for carbapenemase-producing klebsiella and VRE on 10/25/2017 and 10/28/2017 - h/o funguria - h/o urinary retention # fungemia, bacteremia 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; Pt declined surgery for MVR per outside medical records; TTE 07/01/17 did not mention any thrombus; s/p voriconazole (05/25/2017-08/01/2017) - h/o bacteremia due to MSSA and proteus s/p ceftriaxone; repeat blood cultures were negative on 06/14/2017 # musculoskeletal and dermatological - L hand pain - dry skin - chronic wound of LLE - h/o infection of wound of LLE - h/o debridement of wound of LLE on 08/06/2017 - h/o recurrent herpes labialis, Pt took acyclovir, valacyclovir - h/o Osler's nodes (eschar) of R toes with erythematous skin; desquamation of the skin and open lacerations on R plantar foot. improved. Probable manifestation of endocarditis. Pt declined MRI on 08/06/2017 - h/o infection of R toes due to pseudomonas. coagulase negative Staph likely a colonizer - h/o intertrigo of the groin, resolved with nystatin powder - h/o scabies, locally crusted lesion over L scapula, s/p permethrin cream and pGT ivermectin on 08/11/2017, 08/12/2017, 08/19/2017. Repeat skin scraping on 08/21/2017 was negative for scabies # psych, neuro - decreased hearing b/l - s/p acute toxic metabolic encephalopathy - h/o critical illness polyneuropathy - anxiety/depression, bipolar d/o, seen by Psychiatry in the past - chronic pain syndrome - h/o medical non-compliance: she would refuse her medications, treatment and straight catheterization in 2018 # hematological, vascular - chronic anemia requiring blood transfusion intermittently - macrocytic anemia - aneurysmal dilatation of the distal aorta visualized on CT 06/15/2018 - PVD recommendations: - continue renally dosed amikacin for klebsiella in her blood culture (06/17- 06/22/2018), planned for 5 days - continue pGT vancomycin taper: 06/15/2018-06/21/2018 bid, 06/22-06/28: daily, 06/29- 07/05: q48hrs management d/w Pt Consultation Date/Type/Reason Admit Date/Time May 06, 2018 at 17:38 Initial Consult Date 05/10/18 Type of Consult ID Requesting Provider: ROLAND GIRON MD Date/Time of Note DATE: 06/20/18 TIME: 22:16 24 HR Interval Summary Subjective hx not possible: pt non-verbal Exam/Review of Systems Exam Vitals Vital Signs Date Temp Pulse Resp B/P (MAP) Pulse Ox O2 O2 Flow FiO2 Time Delivery Rate 06/20/18 98.4 67 20 124/65 100 20:00 (84) 06/20/18 30 17:27 06/20/18 Mechanical 14:00 Ventilator Intake and Output 06/19/18 06/19/18 06/20/18 1515:00 23:00 07:00 IntakeIntake Total 780 ml 480 ml OutputOutput Total 900 ml 1050 ml BalanceBalance -120 ml -570 ml Constitutional: non-verbal, frail Psych: confusion Head: atraumatic, other (bitemporal wasting) Eyes: nl conjunctiva, nl lids ENMT: nl external ears & nose, nl nasal mucosa & septum, other (dry mucus membranes) Neck: other (not swollen) Respiratory: diminished breath sounds Cardiovascular: regular rate and rhythm, nl pulses Gastrointestinal: soft, non-tender, other (GT, rectal tube) Musculoskeletal: No swelling Extremities: No edema, No pitting pedal edema Neurological: focal weakness, lethargic Skin: rash or lesions (eschar of toes (smaller than before)) Results Result Diagram: 06/20/18 0613 06/20/18 0613 Results 24hrs Laboratory Tests Test 06/20/18 06:13 White Blood Count 9.7 Red Blood Count 2.18 L Hemoglobin 7.4 L Hematocrit 24.1 L Mean Corpuscular Volume 110.6 H Mean Corpuscular Hemoglobin 33.9 H Mean Corpuscular Hemoglobin Concent 30.7 L Red Cell Distribution Width 25.4 H Platelet Count 301 Mean Platelet Volume 10.0 Immature Granulocytes % 0.500 H Neutrophils % 80.9 H Lymphocytes % 8.8 L Monocytes % 5.1 Eosinophils % 4.6 Basophils % 0.1 Nucleated Red Blood Cells % 0.0 Immature Granulocytes # 0.050 H Neutrophils # 7.8 H Lymphocytes # 0.9 Monocytes # 0.5 Eosinophils # 0.4 Basophils # 0.0 Nucleated Red Blood Cells # 0.0 Sodium Level 136 Potassium Level 3.6 Chloride Level 100 Carbon Dioxide Level 26 Anion Gap 10 Blood Urea Nitrogen 59 H Creatinine 1.56 H Est Glomerular Filtrat Rate mL/min Glucose Level 98 Calcium Level 9.3 Vitamin B12 Level 682 Folate > 20.0 H Medications Medication Current Medications IV Flush (NS 10 ml) 10 ml PRN IV ; Start 05/06/18 at 20:30 Ascorbic Acid (Vitamin C) 500 mg DAILY GTB Last administered on 06/20/18 09:09; Admin Dose 500 MG; Start 05/07/18 at 09:00 Albuterol/ Ipratropium (Duoneb) 3 ml Q2H RESP THERAPY PRN HHN SHORTNESS OF BREATH; Start 05/06/18 at 23:30 Zinc Sulfate (Zinc Sulfate) 220 mg DAILY GTB Last administered on 06/20/18 09:08; Admin Dose 220 MG; Start 05/07/18 at 09:00 Ondansetron HCl (Zofran Tab) 4 mg Q6H PRN GTB NAUSEA AND/OR VOMITING Last administered on 05/31/18at 16:47; Admin Dose 4 MG; Start 05/07/18 at 00:15 Multivitamins (Multivitamin) 30 ml DAILY GTB Last administered on 06/20/18 09:08; Admin Dose 30 ML; Start 05/07/18 at 09:00 Miscellaneous Information (Pending Santyl Order For Wound Care) This patient goldman... PRN PRN XX WOUND CARE; Start 05/09/18 at 17:00 Spironolactone (Aldactone) 50 mg DAILY GTB Last administered on 06/20/18 09:09; Admin Dose 50 MG; Start 05/21/18 at 09:00 Famotidine (Pepcid) 20 mg DAILY PEG Last administered on 06/20/18 09:08; Admin Dose 20 MG; Start 05/23/18 at 09:00 Morphine Sulfate (morphine) 6 mg Q4H PRN PEG SEVERE PAIN LEVEL 7-10 Last administered on 06/20/18 20:41; Admin Dose 6 MG; Start 05/22/18 at 17:00 Albumin Human 100 ml @ 100 mls/hr DURING DIALYSIS PRN IV hypotension on hd Last administered on 05/29/18 14:49; Admin Dose 100 MLS/HR; Start 05/27/18 at 07:30 Cholestyramine Resin (Questran Light) 4 gm 0600,1200,1800,2300 PO Last administered on 06/20/18 18:13; Admin Dose 4 GM; Start 05/27/18 at 18:00 Lorazepam (Ativan) 0.5 mg Q4H PRN IV ANXIETY Last administered on 06/20/18 00:38; Admin Dose 0.5 MG; Start 05/30/18 at 12:00 Acetaminophen (Tylenol Tab) 650 mg Q4H PRN PO MILD PAIN(1-3)OR ELEVATED TEMP Last administered on 06/10/18 21:44; Admin Dose 650 MG; Start 05/31/18 at 13:00 Metoclopramide HCl (Reglan) 5 mg Q6 IV Last administered on 06/20/18 18:14; Admin Dose 5 MG; Start 05/31/18 at 13:00 Collagenase (Santyl) 1 applic DAILY TOP Last administered on 06/20/18 09:10; Admin Dose 1 APPLIC; Start 06/01/18 at 09:00 Clonidine (Catapres) 0.1 mg Q6H PRN PO ELEVATED BLOOD PRESSURE Last administered on 06/17/18 05:59; Admin Dose 0.1 MG; Start 06/03/18 at 03:30 Metoprolol Tartrate (Lopressor) 75 mg Q8 GTB Last administered on 06/20/18 16:09; Admin Dose 75 MG; Start 06/08/18 at 14:00 Bumetanide (Bumex) 1 mg BID DIURETICS GTB Last administered on 06/20/18 18:13; Admin Dose 1 MG; Start 06/11/18 at 18:00 Amiodarone HCl (Cordarone) 200 mg Q12 PO Last administered on 06/20/18 20:41; Admin Dose 200 MG; Start 06/12/18 at 21:00 Collagenase (Santyl) 1 applic PRN PRN TOP WHEN SOILED; Start 06/13/18 at 01:00 Nystatin (Nystatin Powder) 1 applic BID TOP Last administered on 06/20/18 20:41; Admin Dose 1 APPLIC; Start 06/13/18 at 14:00 Vancomycin HCl (Vancomycin Oral Syringe) 250 mg BID GTB Last administered on 06/20/18 20:40; Admin Dose 250 MG; Start 06/15/18 at 09:00; Stop 06/22/18 at 08:59 Vancomycin HCl (Vancomycin Oral Syringe) 250 mg DAILY GTB ; Start 06/22/18 at 09:00; Stop 06/29/18 at 08:59 Vancomycin HCl (Vancomycin Oral Syringe) 250 mg Q48H GTB ; Start 06/29/18 at 14:00; Stop 07/06/18 at 13:59 Epoetin Zen-epbx (RETACRIT(esrd)) 20,000 unit Tu@1700 SC Last administered on 06/16/18 20:13; Admin Dose 20,000 UNIT; Start 06/16/18 at 18:30 Amikacin Sulfate (Amikacin Iv Per Pharmacy) AMIKACIN PER PHARMACY NOTE XX ; Start 06/17/18 at 11:30; Stop 06/22/18 at 11:29 Amlodipine Besylate (Norvasc) 5 mg DAILY PO Last administered on 06/20/18 09:08; Admin Dose 5 MG; Start 06/17/18 at 11:30 Amikacin Sulfate 350 mg/Sodium Chloride 101.4 ml @ 102 mls/hr Q36H IVPB Last administered on 06/20/18 16:09; Admin Dose 102 MLS/HR; Start 06/17/18 at 14:00; Stop 06/22/18 at 13:59 Miscellaneous Information (*Order Clarification Bulletin) MEDICATION REQUIRES CLARIFICATION:PLE... Q8H XX ; Start 06/20/18 at 09:30 Citric Acid/ Sodium Citrate (Bicitra) 30 ml BID PO Last administered on 06/20/18 20:41; Admin Dose 30 ML; Start 06/20/18 at 21:00 CELESTINE MURPHY M.D. June 20, 2018 22:18
[2018-06-21] VITALS (22 sets, daily range): BP systolic 104–126; BP diastolic 51–63; PULSE 62–76; RESP 16–25
[2018-06-21] MEDS: LORAZEPAM 2 MG INJ IV PRN ×3 (02:42→17:21)
[2018-06-21] MEDS: METOPROLOL 25 MG TAB GTB SCH ×3 (05:06→22:00)
[2018-06-21] MEDS: METOCLOPRAMIDE 10 MG INJ IV SCH ×4 (05:07→23:00)
[2018-06-21] MEDS: BUMETANIDE 1 MG TAB GTB SCH ×2 (05:07→17:20)
[2018-06-21] MEDS: CHOLESTYRAMINE (LIGHT) 4 GM PACKET PO SCH ×4 (05:07→23:00)
[2018-06-21] MEDS: AMIODARONE 200 MG TAB PO SCH ×2 (09:00→21:01)
[2018-06-21] MEDS: ASCORBIC ACID 500 MG TAB GTB SCH (09:00)
[2018-06-21] MEDS: CITRIC ACID/NA CITRATE 30 ML CUP PO SCH (09:00)
[2018-06-21] MEDS: COLLAGENASE 5 GM (UD JAR) TOP SCH (09:00)
[2018-06-21] MEDS: ZINC SULFATE 220 MG CAP GTB SCH (09:00)
[2018-06-21] MEDS: MULTIVITAMINS 30 ML CUP GTB SCH (09:00)
[2018-06-21] MEDS: SPIRONOLACTONE 25 MG TAB GTB SCH (09:01)
[2018-06-21] MEDS: FAMOTIDINE 20 MG TAB PEG SCH (09:01)
[2018-06-21] MEDS: AMLODIPINE 5 MG TAB PO SCH (09:01)
[2018-06-21] MEDS: VANCOMYCIN HCL 250 MG/5ML POSYG GTB SCH ×2 (09:02→21:01)
[2018-06-21] MEDS: NYSTATIN 30 GM POWDER BTL TOP SCH ×2 (09:02→21:02)
[2018-06-21] MEDS: BALSAM PERU/CASTOR OIL 60 GM TUBE TOP SCH ×2 (09:02→21:02)
--- NOTE | 2018-06-21 11:39 | CONS ---
Assessment/Plan Assessment/Plan Hospital Course (Demo Recall) 1. Nonoliguric acute kidney injury on top of chronic kidney disease stage IIIB/IV, with previous baseline creatinine of around 2 mg/dL. Etiology of acute kidney injury is secondary to acute tubular necrosis. The patient is status post hemodialysis. Renal function improving. Continue current treatment plan, supportive care, renally dose all medications. 2. Volume overload, improving. Continue current diuretic regimen. 3. Hypernatremia, improved. Continue free water flushes. 4. Hypokalemia. Continue to monitor and replete as needed. 5. Metabolic acidosis. stop Bicitra. 6. Hypomagnesemia. Continue to monitor and replete. 7. Anemia. Monitor hemoglobin and hematocrit levels. We will give Epogen as needed. 8. Mineral bone disorder. Monitor calcium and phosphorus levels. 9. Ventilator-dependent respiratory failure. Vent settings reviewed. Continue to monitor. 10. Sepsis, status post shock. The patient is completing antibiotic course. 11. Lower extremity wounds. Continue wound care. 12. Dysphagia. Continue tube feeding. 13. Encephalopathy. Continue to monitor. Consultation Date/Type/Reason Admit Date/Time May 06, 2018 at 17:38 Initial Consult Date 05/10/18 Requesting Provider: ROLAND GIRON MD Date/Time of Note DATE: 06/21/18 TIME: 11:35 24 HR Interval Summary Free Text/Dictation adequate urine output overnight events reviewed gen nad cv rrr pulm ctab abd soft, nd, nt +bs ext: no edema Exam/Review of Systems Exam Vitals Vital Signs Date Temp Pulse Resp B/P (MAP) Pulse Ox O2 O2 Flow FiO2 Time Delivery Rate 06/21/18 98.3 76 20 126/63 100 Trach 11:29 (84) Collar 06/21/18 30 05:05 Intake and Output 06/20/18 06/20/18 06/21/18 1414:59 22:59 06:59 IntakeIntake Total 880 ml 1080 ml OutputOutput Total 900 ml 700 ml BalanceBalance -20 ml 380 ml Results Result Diagram: 06/20/18 0613 06/20/18 06 Medications Medication Current Medications IV Flush (NS 10 ml) 10 ml PRN IV ; Start 05/06/18 at 20:30 Ascorbic Acid (Vitamin C) 500 mg DAILY GTB Last administered on 06/21/18 09:00; Admin Dose 500 MG; Start 05/07/18 at 09:00 Albuterol/ Ipratropium (Duoneb) 3 ml Q2H RESP THERAPY PRN HHN SHORTNESS OF BREATH; Start 05/06/18 at 23:30 Zinc Sulfate (Zinc Sulfate) 220 mg DAILY GTB Last administered on 06/21/18 09:00; Admin Dose 220 MG; Start 05/07/18 at 09:00 Ondansetron HCl (Zofran Tab) 4 mg Q6H PRN GTB NAUSEA AND/OR VOMITING Last administered on 05/31/18 16:47; Admin Dose 4 MG; Start 05/07/18 at 00:15 Multivitamins (Multivitamin) 30 ml DAILY GTB Last administered on 06/21/18 09:00; Admin Dose 30 ML; Start 05/07/18 at 09:00 Miscellaneous Information (Pending Santyl Order For Wound Care) This patient goldman... PRN PRN XX WOUND CARE; Start 05/09/18 at 17:00 Spironolactone (Aldactone) 50 mg DAILY GTB Last administered on 06/21/18 09:01; Admin Dose 50 MG; Start 05/21/18 at 09:00 Famotidine (Pepcid) 20 mg DAILY PEG Last administered on 06/21/18 09:01; Admin Dose 20 MG; Start 05/23/18 at 09:00 Morphine Sulfate (morphine) 6 mg Q4H PRN PEG SEVERE PAIN LEVEL 7-10 Last administered on 06/20/18 20:41; Admin Dose 6 MG; Start 05/22/18 at 17:00 Albumin Human 100 ml @ 100 mls/hr DURING DIALYSIS PRN IV hypotension on hd Last administered on 05/29/18 14:49; Admin Dose 100 MLS/HR; Start 05/27/18 at 07:30 Cholestyramine Resin (Questran Light) 4 gm 0600,1200,1800,2300 PO Last administered on 06/21/18 05:07; Admin Dose 4 GM; Start 05/27/18 at 18:00 Lorazepam (Ativan) 0.5 mg Q4H PRN IV ANXIETY Last administered on 06/21/18 10:51; Admin Dose 0.5 MG; Start 05/30/18 at 12:00 Acetaminophen (Tylenol Tab) 650 mg Q4H PRN PO MILD PAIN(1-3)OR ELEVATED TEMP Last administered on 06/10/18 21:44; Admin Dose 650 MG; Start 05/31/18 at 13:00 Metoclopramide HCl (Reglan) 5 mg Q6 IV Last administered on 06/21/18 05:07; Admin Dose 5 MG; Start 05/31/18 at 13:00 Collagenase (Santyl) 1 applic DAILY TOP Last administered on 06/21/18 09:00; Admin Dose 1 APPLIC; Start 06/01/18 at 09:00 Clonidine (Catapres) 0.1 mg Q6H PRN PO ELEVATED BLOOD PRESSURE Last administered on 06/17/18 05:59; Admin Dose 0.1 MG; Start 06/03/18 at 03:30 Metoprolol Tartrate (Lopressor) 75 mg Q8 GTB Last administered on 06/20/18 22:41; Admin Dose 75 MG; Start 06/08/18 at 14:00 Bumetanide (Bumex) 1 mg BID DIURETICS GTB Last administered on 06/21/18 05:07; Admin Dose 1 MG; Start 06/11/18 at 18:00 Amiodarone HCl (Cordarone) 200 mg Q12 PO Last administered on 06/21/18 09:00; Admin Dose 200 MG; Start 06/12/18 at 21:00 Collagenase (Santyl) 1 applic PRN PRN TOP WHEN SOILED; Start 06/13/18 at 01:00 Nystatin (Nystatin Powder) 1 applic BID TOP Last administered on 06/21/18 09:02; Admin Dose 1 APPLIC; Start 06/13/18 at 14:00 Vancomycin HCl (Vancomycin Oral Syringe) 250 mg BID GTB Last administered on 06/21/18 09:02; Admin Dose 250 MG; Start 06/15/18 at 09:00; Stop 06/22/18 at 08:59 Vancomycin HCl (Vancomycin Oral Syringe) 250 mg DAILY GTB ; Start 06/22/18 at 09:00; Stop 06/29/18 at 08:59 Vancomycin HCl (Vancomycin Oral Syringe) 250 mg Q48H GTB ; Start 06/29/18 at 1 4:00; Stop 07/06/18 at 13:59 Epoetin Zen-epbx (RETACRIT(esrd)) 20,000 unit Tu@1700 SC Last administered on 06/16/18at 20:13; Admin Dose 20,000 UNIT; Start 06/16/18 at 18:30 Amikacin Sulfate (Amikacin Iv Per Pharmacy) AMIKACIN PER PHARMACY NOTE XX ; Start 06/17/18 at 11:30; Stop 06/22/18 at 11:29 Amlodipine Besylate (Norvasc) 5 mg DAILY PO Last administered on 06/21/18at 09:01; Admin Dose 5 MG; Start 06/17/18 at 11:30 Amikacin Sulfate 350 mg/Sodium Chloride 101.4 ml @ 102 mls/hr Q36H IVPB Last administered on 06/20/18at 16:09; Admin Dose 102 MLS/HR; Start 06/17/18 at 14:00; Stop 06/22/18 at 13:59 Miscellaneous Information (*Order Clarification Bulletin) MEDICATION REQUIRES CLARIFICATION:PLE... Q8H XX ; Start 06/20/18 at 09:30 Citric Acid/ Sodium Citrate (Bicitra) 30 ml BID PO Last administered on 06/21/18 09:00; Admin Dose 30 ML; Start 06/20/18 at 21:00 ALIZE FLORES MD June 21, 2018 11:39
--- NOTE | 2018-06-21 12:52 | PN ---
Date/Time of Note Date/Time of Note DATE: 06/21/18 TIME: 12:52 Assessment/Plan VTE Prophylaxis Risk score (from Ns)>0 risk: 4 SCD applied (from Ns): Yes Pharmacological prophylaxis: LMWH Lines/Catheters IV Catheter Type (from [facility]): PICC Line Central line still needed: Yes Urinary Cath still in place: Yes Reason Cath still needed: skin wounds contaminated by urine Assessment/Plan Hospital Course Hypokalemia fu AM bmp -Atrial fibrillation was rapid ventricular response, s/p amiodarone drip. Rate is well controlled on p.o. amiodarone and metoprolol. Dr. Scanlon is following in cardiology consultation. -Septic shock secondary to urinary tract infection, anterior neck soft tissue infection, and C. difficile colitis, resolving. Continue antibiotics per ID. Dr. Doyle is following in infection disease consultation. -Acute respiratory failure requiring intubation and ventilatory support. Dr. Lambert is following in pulmonology consultation. -S/p tracheostomy on 05/29/18. -Acute kidney injury on chronic kidney disease. Started on HD this admission. Dr. Mckeon is following in nephrology consultation. -Anemia of chronic inflammation, stool for OB is negative, status post blood transfusion. Continue Epogen. -Metabolic acidosis, resolved. -Acute diastolic congestive heart failure. -Paroxysmal atrial fibrillation -COPD -Dysphagia with PEG. -G-tube mild malfunction, changed by GI Dr. Carolina is following in gastroenterology consultation. -Obesity Result Diagram: 06/20/18 0613 06/20/18 0613 Subjective 24 Hr Interval Summary Free Text/Dictation Eyes open, states that she has abdominal pain Exam/Review of Systems Exam Vitals Vital Signs Date Temp Pulse Resp B/P (MAP) Pulse Ox O2 O2 Flow FiO2 Time Delivery Rate 06/21/18 71 12:36 06/21/18 23 100 30 11:55 06/21/18 98.3 126/63 Trach 11:29 (84) Collar Intake and Output 06/20/18 06/20/18 06/21/18 1515:00 23:00 07:00 IntakeIntake Total 880 ml 1080 ml OutputOutput Total 900 ml 700 ml BalanceBalance -20 ml 380 ml Constitutional: well developed Head: normocephalic, atraumatic Neck: supple Respiratory: diminished breath sounds Cardiovascular: regular rate and rhythm Gastrointestinal: soft, non-tender Extremities: normal pulses Medications Medication Current Medications IV Flush (NS 10 ml) 10 ml PRN IV ; Start 05/06/18 at 20:30 Ascorbic Acid (Vitamin C) 500 mg DAILY GTB Last administered on 06/21/18 09:00; Admin Dose 500 MG; Start 05/07/18 at 09:00 Albuterol/ Ipratropium (Duoneb) 3 ml Q2H RESP THERAPY PRN HHN SHORTNESS OF BREATH; Start 05/06/18 at 23:30 Zinc Sulfate (Zinc Sulfate) 220 mg DAILY GTB Last administered on 06/21/18 09:00; Admin Dose 220 MG; Start 05/07/18 at 09:00 Ondansetron HCl (Zofran Tab) 4 mg Q6H PRN GTB NAUSEA AND/OR VOMITING Last administered on 05/31/18 16:47; Admin Dose 4 MG; Start 05/07/18 at 00:15 Multivitamins (Multivitamin) 30 ml DAILY GTB Last administered on 06/21/18 09:00; Admin Dose 30 ML; Start 05/07/18 at 09:00 Miscellaneous Information (Pending Santyl Order For Wound Care) This patient goldman... PRN PRN XX WOUND CARE; Start 05/09/18 at 17:00 Spironolactone (Aldactone) 50 mg DAILY GTB Last administered on 06/21/18 09:01; Admin Dose 50 MG; Start 05/21/18 at 09:00 Famotidine (Pepcid) 20 mg DAILY PEG Last administered on 06/21/18 09:01; Admin Dose 20 MG; Start 05/23/18 at 09:00 Morphine Sulfate (morphine) 6 mg Q4H PRN PEG SEVERE PAIN LEVEL 7-10 Last administered on 06/20/18 20:41; Admin Dose 6 MG; Start 05/22/18 at 17:00 Albumin Human 100 ml @ 100 mls/hr DURING DIALYSIS PRN IV hypotension on hd Last administered on 05/29/18 14:49; Admin Dose 100 MLS/HR; Start 05/27/18 at 07:30 Cholestyramine Resin (Questran Light) 4 gm 0600,1200,1800,2300 PO Last administered on 06/21/18 05:07; Admin Dose 4 GM; Start 05/27/18 at 18:00 Lorazepam (Ativan) 0.5 mg Q4H PRN IV ANXIETY Last administered on 06/21/18 10:51; Admin Dose 0.5 MG; Start 05/30/18 at 12:00 Acetaminophen (Tylenol Tab) 650 mg Q4H PRN PO MILD PAIN(1-3)OR ELEVATED TEMP Last administered on 06/10/18 21:44; Admin Dose 650 MG; Start 05/31/18 at 13:00 Metoclopramide HCl (Reglan) 5 mg Q6 IV Last administered on 06/21/18 05:07; Admin Dose 5 MG; Start 05/31/18 at 13:00 Collagenase (Santyl) 1 applic DAILY TOP Last administered on 06/21/18 09:00; Admin Dose 1 APPLIC; Start 06/01/18 at 09:00 Clonidine (Catapres) 0.1 mg Q6H PRN PO ELEVATED BLOOD PRESSURE Last administered on 06/17/18 05:59; Admin Dose 0.1 MG; Start 06/03/18 at 03:30 Metoprolol Tartrate (Lopressor) 75 mg Q8 GTB Last administered on 06/20/18 22:41; Admin Dose 75 MG; Start 06/08/18 at 14:00 Bumetanide (Bumex) 1 mg BID DIURETICS GTB Last administered on 06/21/18 05:07; Admin Dose 1 MG; Start 06/11/18 at 18:00 Amiodarone HCl (Cordarone) 200 mg Q12 PO Last administered on 06/21/18 09:00; Admin Dose 200 MG; Start 06/12/18 at 21:00 Collagenase (Santyl) 1 applic PRN PRN TOP WHEN SOILED; Start 06/13/18 at 01:00 Nystatin (Nystatin Powder) 1 applic BID TOP Last administered on 06/21/18 09:02; Admin Dose 1 APPLIC; Start 06/13/18 at 14:00 Vancomycin HCl (Vancomycin Oral Syringe) 250 mg BID GTB Last administered on 06/21/18 09:02; Admin Dose 250 MG; Start 06/15/18 at 09:00; Stop 06/22/18 at 08:59 Vancomycin HCl (Vancomycin Oral Syringe) 250 mg DAILY GTB ; Start 06/22/18 at 09:00; Stop 06/29/18 at 08:59 Vancomycin HCl (Vancomycin Oral Syringe) 250 mg Q48H GTB ; Start 06/29/18 at 14:00; Stop 07/06/18 at 13:59 Epoetin Zen-epbx (RETACRIT(esrd)) 20,000 unit Tu@1700 SC Last administered on 06/16/18at 20:13; Admin Dose 20,000 UNIT; Start 06/16/18 at 18:30 Amikacin Sulfate (Amikacin Iv Per Pharmacy) AMIKACIN PER PHARMACY NOTE XX ; Start 06/17/18 at 11:30; Stop 06/22/18 at 11:29 Amlodipine Besylate (Norvasc) 5 mg DAILY PO Last administered on 06/21/18at 09:01; Admin Dose 5 MG; Start 06/17/18 at 11:30 Amikacin Sulfate 350 mg/Sodium Chloride 101.4 ml @ 102 mls/hr Q36H IVPB Last administered on 06/20/18at 16:09; Admin Dose 102 MLS/HR; Start 06/17/18 at 14:00; Stop 06/22/18 at 13:59 Miscellaneous Information (*Order Clarification Bulletin) MEDICATION REQUIRES CLARIFICATION:PLE... Q8H XX ; Start 06/20/18 at 09:30 STEPHANIE BAL June 21, 2018 12:52
[2018-06-21] MEDS: morphine LIQ (10 MG/5 ML) CUP PEG PRN ×2 (13:20→16:24)
--- NOTE | 2018-06-21 14:47 | CONS ---
Consult Date/Type/Reason Admit Date/Time May 06, 2018 at 17:38 Initial Consult Date 05/10/18 Type of Consultation: Pulm/CCM Requesting Provider: ROLAND GIRON MD Date/Time of Note DATE: 06/21/18 TIME: 14:46 Subjective No events overnight. Objective Vitals Vital Signs Date Temp Pulse Resp B/P (MAP) Pulse Ox O2 O2 Flow FiO2 Time Delivery Rate 06/21/18 71 12:36 06/21/18 23 100 30 11:55 06/21/18 98.3 126/63 Trach 11:29 (84) Collar Intake and Output 06/20/18 06/20/18 06/21/18 1515:00 23:00 07:00 IntakeIntake Total 880 ml 1080 ml OutputOutput Total 900 ml 700 ml BalanceBalance -20 ml 380 ml Exam HEENT: Neck supple; no JVD; no LAD: + trach CVS: Irreg irreg, S1 and S2 CHEST: Coarse BS B/L ABD: Soft, NT, + BS EXT: No c/c; + edema Results/Medications Result Diagram: 06/20/1861206/20/18 0613 Home Meds Reported Medications Zinc Sulfate* (Zinc Sulfate*) 220 Mg Tablet, 220 MG GTB DAILY, TAB START DATE 05/04/18, END DATE 06/03/18 05/06/18 Diclofenac Sodium* (Voltaren* Gel) 1% -100 Gm Gel, 2 GM TOP TID, #1 TUB 05/06/18 Ascorbic Acid (Vitamin C) 500 Mg Tab, 500 MG GTB DAILY, TAB 05/06/18 Quetiapine Fumarate* (Seroquel*) 100 Mg Tablet, 600 MG GTB HS, #30 TAB 05/06/18 Protein Supplement (Promod) 946 Ml Liquid, 30 ML GTB BID 05/06/18 Epoetin Zen (Procrit) 20,000 Unit/1 Ml Vial, 92765 UNIT IJ Q TUE for FOR ANEMIA OF CKD, VIAL HOLD IFHGB IS EQUAL OR GREATER THAN 11 05/06/18 Ondansetron Hcl* (Ondansetron Hcl* Liq) 4 Mg/5 Ml Solution, 4 MG GTB Q6H PRN for NAUSEA AND/OR VOMITING, ML 05/06/18 Multivitamin with Minerals (Multivitamins with Minerals) 1 Each Tablet, 1 EACH GTB QAM, TAB 05/06/18 Metoprolol Tartrate* (Lopressor*) 25 Mg Tab, 25 MG GTB BID, #60 TAB HOLD FOR SBP<110 OR HR<60 05/06/18 Lorazepam* (Ativan* Intensol) 2 Mg/Ml Soln, 0.5 MG IV* Q6H PRN for ANXIETY, #1 BOTTLE START DATE 04/02/18, END DATE 06/01/18 05/06/18 Lidocaine (Lidocaine) 1 Each Adh..patch, 1 EACH TP Q12H 5% 05/06/18 Ipratropium-Albuterol (Ipratropium-Albuterol) 0.5-3 Mg/3 Ml Ampul.neb, 3 ML INHALATION Q6 PRN for BRONCHOSPASM, #30 VIAL 05/06/18 Ipratropium-Albuterol (Ipratropium-Albuterol) 0.5-3 Mg/3 Ml Ampul.neb, 3 ML INHALATION Q2H PRN for BRONCHOSPASM, #30 VIAL 05/06/18 Famotidine* (Famotidine*) 20 Mg Tablet, 20 MG GTB BID, #60 TAB 05/06/18 Valproic Acid* (Depakene*) 250 Mg/5 Ml Udc Syrup, 100 MG GTB QHS, ML 05/06/18 Clonidine Hcl* (Clonidine Hcl*) 0.1 Mg Tab, 0.1 MG GTB Q6 PRN for NEEDED, TAB FOR SBP>160 OR DBP>90 05/06/18 Aspirin* (Aspirin* Chew) 81 Mg Tab.chew, 81 MG GTB DAILY, TAB.CHEW 05/06/18 Medications Current Medications IV Flush (NS 10 ml) 10 ml PRN IV ; Start 05/06/18 at 20:30 Ascorbic Acid (Vitamin C) 500 mg DAILY GTB Last administered on 06/21/18at 09:00; Admin Dose 500 MG; Start 05/07/18 at 09:00 Albuterol/ Ipratropium (Duoneb) 3 ml Q2H RESP THERAPY PRN HHN SHORTNESS OF BREATH; Start 05/06/18 at 23:30 Zinc Sulfate (Zinc Sulfate) 220 mg DAILY GTB Last administered on 06/21/18at 09:00; Admin Dose 220 MG; Start 05/07/18 at 09:00 Ondansetron HCl (Zofran Tab) 4 mg Q6H PRN GTB NAUSEA AND/OR VOMITING Last administered on 05/31/18 16:47; Admin Dose 4 MG; Start 05/07/18 at 00:15 Multivitamins (Multivitamin) 30 ml DAILY GTB Last administered on 06/21/18 09:00; Admin Dose 30 ML; Start 05/07/18 at 09:00 Miscellaneous Information (Pending Santyl Order For Wound Care) This patient goldman... PRN PRN XX WOUND CARE; Start 05/09/18 at 17:00 Spironolactone (Aldactone) 50 mg DAILY GTB Last administered on 06/21/18 09:01; Admin Dose 50 MG; Start 05/21/18 at 09:00 Famotidine (Pepcid) 20 mg DAILY PEG Last administered on 06/21/18 09:01; Admin Dose 20 MG; Start 05/23/18 at 09:00 Morphine Sulfate (morphine) 6 mg Q4H PRN PEG SEVERE PAIN LEVEL 7-10 Last administered on 06/21/18 13:20; Admin Dose 6 MG; Start 05/22/18 at 17:00 Albumin Human 100 ml @ 100 mls/hr DURING DIALYSIS PRN IV hypotension on hd Last administered on 05/29/18 14:49; Admin Dose 100 MLS/HR; Start 05/27/18 at 07:30 Cholestyramine Resin (Questran Light) 4 gm 0600,1200,1800,2300 PO Last administered on 06/21/18 13:19; Admin Dose 4 GM; Start 05/27/18 at 18:00 Lorazepam (Ativan) 0.5 mg Q4H PRN IV ANXIETY Last administered on 06/21/18 10:51; Admin Dose 0.5 MG; Start 05/30/18 at 12:00 Acetaminophen (Tylenol Tab) 650 mg Q4H PRN PO MILD PAIN(1-3)OR ELEVATED TEMP Last administered on 06/10/18 21:44; Admin Dose 650 MG; Start 05/31/18 at 13:00 Metoclopramide HCl (Reglan) 5 mg Q6 IV Last administered on 06/21/18 13:19; Admin Dose 5 MG; Start 05/31/18 at 13:00 Collagenase (Santyl) 1 applic DAILY TOP Last administered on 06/21/18 09:00; Admin Dose 1 APPLIC; Start 06/01/18 at 09:00 Clonidine (Catapres) 0.1 mg Q6H PRN PO ELEVATED BLOOD PRESSURE Last administered on 06/17/18 05:59; Admin Dose 0.1 MG; Start 06/03/18 at 03:30 Metoprolol Tartrate (Lopressor) 75 mg Q8 GTB Last administered on 06/21/18 13:19; Admin Dose 75 MG; Start 06/08/18 at 14:00 Bumetanide (Bumex) 1 mg BID DIURETICS GTB Last administered on 06/21/18 05:07; Admin Dose 1 MG; Start 06/11/18 at 18:00 Amiodarone HCl (Cordarone) 200 mg Q12 PO Last administered on 06/21/18 09:00; Admin Dose 200 MG; Start 06/12/18 at 21:00 Collagenase (Santyl) 1 applic PRN PRN TOP WHEN SOILED; Start 06/13/18 at 01:00 Nystatin (Nystatin Powder) 1 applic BID TOP Last administered on 06/21/18 09:02; Admin Dose 1 APPLIC; Start 06/13/18 at 14:00 Vancomycin HCl (Vancomycin Oral Syringe) 250 mg BID GTB Last administered on 06/21/18 09:02; Admin Dose 250 MG; Start 06/15/18 at 09:00; Stop 06/22/18 at 08:59 Vancomycin HCl (Vancomycin Oral Syringe) 250 mg DAILY GTB ; Start 06/22/18 at 09:00; Stop 06/29/18 at 08:59 Vancomycin HCl (Vancomycin Oral Syringe) 250 mg Q48H GTB ; Start 06/29/18 at 14:00; Stop 07/06/18 at 13:59 Epoetin Zen-epbx (RETACRIT(esrd)) 20,000 unit Tu@1700 SC Last administered on 06/16/18at 20:13; Admin Dose 20,000 UNIT; Start 06/16/18 at 18:30 Amikacin Sulfate (Amikacin Iv Per Pharmacy) AMIKACIN PER PHARMACY NOTE XX ; Start 06/17/18 at 11:30; Stop 06/22/18 at 11:29 Amlodipine Besylate (Norvasc) 5 mg DAILY PO Last administered on 06/21/18at 09:01; Admin Dose 5 MG; Start 06/17/18 at 11:30 Amikacin Sulfate 350 mg/Sodium Chloride 101.4 ml @ 102 mls/hr Q36H IVPB Last administered on 06/20/18at 16:09; Admin Dose 102 MLS/HR; Start 06/17/18 at 14:00; Stop 06/22/18 at 13:59 Miscellaneous Information (*Order Clarification Bulletin) MEDICATION REQUIRES CLARIFICATION:PLE... Q8H XX ; Start 06/20/18 at 09:30 Assessment/Plan Assessment/Plan (Daily) IMP: 1. Sepsis 2. Acute Renal Failure 3. VDRF 4. Encephalopathy 5. Anemia 6. H/O abdominal abscess 7. Atrial fibrillation with RVR RECS: 1. Vent support 2. CPT/suctioning 3. TF/Free H20 4. Rate control as per CV SALENA IRAHETA MD June 21, 2018 14:47
--- NOTE | 2018-06-21 15:54 | CONS ---
Assessment/Plan Assessment/Plan Assessment/Plan (Daily) 1. ABD pain -CT of abd 2. Renal failure.- on HD 3. Vent dependent resp failure 4. Chronic obstructive pulmonary disease. 5. Bipolar. 6. Paroxysmal atrial fibrillation. 7. Anemia of chronic disease. 8. CHF 9. Diarrhea 11. Diarrhea -s/p c diff colitis -taper off of vanco 12. H/O deep esophageal ulcer 13. Dysphagia with g tube 14. Anemia of chronic disease 15. UTI with positive cx 16. Macrocytosis CT of abd/pelvis 06/16 1. Nonspecific bibasilar ground-glass densities and the airspace disease, suggesting bilateral pneumonia versus pulmonary edema. 2. Atrophy of the left kidney. 2.3 cm left renal cyst. The right kidney demonstrates compensatory hypertrophy. No calculus or hydronephrosis in either kidney. 3. Atherosclerosis of the aorta. 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 No leak or rupture. 4. Mild nonspecific ascites in the pelvis. 5. Air-fluid levels are seen throughout the small bowel and colon. Consider mild ileus versus enterocolitis. Patient has good bowel movement and there is no evidence of emesis or nausea PLAN: Ok to resume tube feeds Continue with reglan and pepcid Taper vanco to off Monitor tube feeds residuals q 6 hours Monitor hemoglobin hematocrit, there is a significant drop in her hematocrit Will send for B12 and folic acid level, both were within normal limit Repeat stool for C. difficile toxins Consultation Date/Type/Reason Admit Date/Time May 06, 2018 at 17:38 Initial Consult Date 05/10/18 Requesting Provider: ROLAND GIRON MD Date/Time of Note DATE: 06/21/18 TIME: 15:53 24 HR Interval Summary Free Text/Dictation Of mild abdominal pain around the G-tube site Exam/Review of Systems Exam Vitals Vital Signs Date Temp Pulse Resp B/P (MAP) Pulse Ox O2 O2 Flow FiO2 Time Delivery Rate 06/21/18 98.6 63 20 104/57 100 Trach 15:34 (73) Collar 06/21/18 30 11:55 Intake and Output 06/20/18 06/20/18 06/21/18 1515:00 23:00 07:00 IntakeIntake Total 880 ml 1080 ml OutputOutput Total 900 ml 700 ml BalanceBalance -20 ml 380 ml Constitutional: alert, oriented ENMT: intubated Respiratory: diminished breath sounds Cardiovascular: regular rate and rhythm, nl pulses Musculoskeletal: nl extremities to inspection, nl gait and stance Extremities: normal pulses Results Result Diagram: 06/20/1861206/20/18612 Medications Medication Current Medications IV Flush (NS 10 ml) 10 ml PRN IV ; Start 05/06/18 at 20:30 Ascorbic Acid (Vitamin C) 500 mg DAILY GTB Last administered on 06/21/18 09:00; Admin Dose 500 MG; Start 05/07/18 at 09:00 Albuterol/ Ipratropium (Duoneb) 3 ml Q2H RESP THERAPY PRN HHN SHORTNESS OF BREATH; Start 05/06/18 at 23:30 Zinc Sulfate (Zinc Sulfate) 220 mg DAILY GTB Last administered on 06/21/18 09:00; Admin Dose 220 MG; Start 05/07/18 at 09:00 Ondansetron HCl (Zofran Tab) 4 mg Q6H PRN GTB NAUSEA AND/OR VOMITING Last administered on 05/31/18 16:47; Admin Dose 4 MG; Start 05/07/18 at 00:15 Multivitamins (Multivitamin) 30 ml DAILY GTB Last administered on 06/21/18 09:00; Admin Dose 30 ML; Start 05/07/18 at 09:00 [facility]isc[facility] This patient goldman... PRN PRN XX WOUND CARE; Start 05/09/18 at 17:00 Spironolactone (Aldactone) 50 mg DAILY GTB Last administered on 06/21/18 09:01; Admin Dose 50 MG; Start 05/21/18 at 09:00 Famotidine (Pepcid) 20 mg DAILY PEG Last administered on 06/21/18 09:01; Admin Dose 20 MG; Start 05/23/18 at 09:00 Morphine Sulfate (morphine) 6 mg Q4H PRN PEG SEVERE PAIN LEVEL 7-10 Last administered on 06/21/18 13:20; Admin Dose 6 MG; Start 05/22/18 at 17:00 Albumin Human 100 ml @ 100 mls/hr DURING DIALYSIS PRN IV hypotension on hd Last administered on 05/29/18 14:49; Admin Dose 100 MLS/HR; Start 05/27/18 at 07:30 Cholestyramine Resin (Questran Light) 4 gm 0600,1200,1800,2300 PO Last administered on 06/21/18 13:19; Admin Dose 4 GM; Start 05/27/18 at 18:00 Lorazepam (Ativan) 0.5 mg Q4H PRN IV ANXIETY Last administered on 06/21/18 10:51; Admin Dose 0.5 MG; Start 05/30/18 at 12:00 Acetaminophen (Tylenol Tab) 650 mg Q4H PRN PO MILD PAIN(1-3)OR ELEVATED TEMP Last administered on 06/10/18 21:44; Admin Dose 650 MG; Start 05/31/18 at 13:00 Metoclopramide HCl (Reglan) 5 mg Q6 IV Last administered on 06/21/18 13:19; Admin Dose 5 MG; Start 05/31/18 at 13:00 Collagenase (Santyl) 1 applic DAILY TOP Last administered on 06/21/18 09:00; Admin Dose 1 APPLIC; Start 06/01/18 at 09:00 Clonidine (Catapres) 0.1 mg Q6H PRN PO ELEVATED BLOOD PRESSURE Last administered on 06/17/18 05:59; Admin Dose 0.1 MG; Start 06/03/18 at 03:30 Metoprolol Tartrate (Lopressor) 75 mg Q8 GTB Last administered on 06/21/18 13:19; Admin Dose 75 MG; Start 06/08/18 at 14:00 Bumetanide (Bumex) 1 mg BID DIURETICS GTB Last administered on 06/21/18 05:07; Admin Dose 1 MG; Start 06/11/18 at 18:00 Amiodarone HCl (Cordarone) 200 mg Q12 PO Last administered on 06/21/18 09:00; Admin Dose 200 MG; Start 06/12/18 at 21:00 Collagenase (Santyl) 1 applic PRN PRN TOP WHEN SOILED; Start 06/13/18 at 01:00 Nystatin (Nystatin Powder) 1 applic BID TOP Last administered on 06/21/18 09:02; Admin Dose 1 APPLIC; Start 06/13/18 at 14:00 Vancomycin HCl (Vancomycin Oral Syringe) 250 mg BID GTB Last administered on 5/5/19at 09:02; Admin Dose 250 MG; Start 06/15/18 at 09:00; Stop 06/22/18 at 08:59 Vancomycin HCl (Vancomycin Oral Syringe) 250 mg DAILY GTB ; Start 06/22/18 at 09:00; Stop 06/29/18 at 08:59 Vancomycin HCl (Vancomycin Oral Syringe) 250 mg Q48H GTB ; Start 06/29/18 at 14:00; Stop 07/06/18 at 13:59 Epoetin Zen-epbx (RETACRIT(esrd)) 20,000 unit Tu@1700 SC Last administered on 06/16/18at 20:13; Admin Dose 20,000 UNIT; Start 06/16/18 at 18:30 Amikacin Sulfate (Amikacin Iv Per Pharmacy) AMIKACIN PER PHARMACY NOTE XX ; Start 06/17/18 at 11:30; Stop 06/22/18 at 11:29 Amlodipine Besylate (Norvasc) 5 mg DAILY PO Last administered on 06/21/18at 09:01; Admin Dose 5 MG; Start 06/17/18 at 11:30 Amikacin Sulfate 350 mg/Sodium Chloride 101.4 ml @ 102 mls/hr Q36H IVPB Last administered on 06/20/18at 16:09; Admin Dose 102 MLS/HR; Start 06/17/18 at 14:00; Stop 06/22/18 at 13:59 Miscellaneous Information (*Order Clarification Bulletin) MEDICATION REQUIRES CLARIFICATION:PLE... Q8H XX ; Start 06/20/18 at 09:30 QUINTEN UMAÑA MD June 21, 2018 15:54
--- NOTE | 2018-06-21 17:31 | CONS ---
Assessment/Plan Assessment/Plan Hospital Course (Demo Recall) # sepsis, leukocytosis, SIRS, pulmonary, cardiac - recurrent leukocytosis due to recurrent UTI, improved - s/p septic shock due to pneumonia and C diff colitis - acute on chronic hypoxic respiratory failure, persistent - s/p reintubation 05/12/2018 - s/p re-do trach on 05/29/2018 - recurrent colonization of the anterior neck wound with ESBL+kleb, MRSA, GBS, corynebacteria on 05/06/2018, s/p meropenem - h/o pneumonia vs. colonization of the airway by pseudomonas and ESBL+klebsiella - h/o possible, recurrent HCAP due to pseudomonas and ESBL+klebsiella - h/o recurrent HCAP due to MRSA and Enterobacter (culture of tracheal aspirate on 07/16/2017 that was collected at [facility]) . Pt took vancomycin and ceftazidime - h/o decannulation prior to admission - h/o tracheostomy on 06/11/2017 - h/o SIRS from UGIB in 2018 - h/o thoracentesis on 07/18/2017, transudative (protein <2, LDH 279) - h/o bleeding from the trach site in 2018 - h/o septic shock due to pneumonia, ARDS, bacteremia, fungemia in 2018 - h/o ARDS in 2018 - h/o smoking - COPD - h/o ILD per medical record - h/o PAF, improved # GI - possible ileus or enterocolitis on CT abd/pel 06/15/2018 - C diff colitis, diagnosed on 05/11/2018. Pt's on pGT vancomycin induction followed by taper (05/11/2018-); Pt previously took IV metronidazole (05/11/2018- 05/29/2018; restart 05/30/2018-06/05/18) too - h/o intermittent diarrhea, Pt had multiple negative C. diff tests at [facility] at OSH in the past; none was positive until 05/11/2018 - dysphagia - h/o PEG placement 06/13/2018 - protein calorie malnutrition - h/o coffee ground emesis/UGIB on 12/23/2017 due to deep ulceration of distal esophagus and gastritis on EGD 12/26/2017. No e/o H. pylori - h/o possible appendicitis on CT on 11/22/2017, Pt took ertapenem (11/24/2017-12/01/2017) - h/o extensive adhesions lower abdominal and pelvis between small bowel to each other and to colon and to abdominal wall, anterior pelvic wall chronic abscess secondary to probably an old perforated diverticulitis, torsion of small bowel around these dense adhesion causing multiple obstructive points - h/o laparoscopic exploration and extensive lysis of adhesions and drainage of anterior pelvic wall abscess 09/16/2017. Cultures were negative, no e/o malignancy. 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 Pt is on amikacin x 5 days (06/17- 06/22/2018) - UTI due to pseudomonas and ESBL+klebsiella on 06/09/2018, Pt took one dose of fosfomycin on 06/10/2018 and cipro 06/12-06/15/2018 - anasarca - started on HD on 05/15/2018, via Juan in R groin - recurrent NATHAN on CKD - 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 Her strain of CRE was sensitive to colistin, Avycaz, and Vabomere but resistant to Zerbaxa (reported on 05/19/2018) - Hyponatremia - Hyperkalemia, now hypokalemia - Metabolic acidosis - adrenal insufficiency - h/o vaginal bleed in 2018 - h/o colonization of urinary tract by ESBL+klebsiella, VRE - h/o recurrent, symptomatic UTI due to carbapenem-resistant kleb (MDR strain) per urine culture 10/04/17, 10/09/17, 10/21/2017, P took colistin (10/09/2017- 10/15/2017), fosfomycin for carbapenemase-producing klebsiella and VRE on 10/25/2017 and 10/28/2017 - h/o funguria - h/o urinary retention # fungemia, bacteremia 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; Pt declined surgery for MVR per outside medical records; TTE 07/01/17 did not mention any thrombus; s/p voriconazole (05/25/2017-08/01/2017) - h/o bacteremia due to MSSA and proteus s/p ceftriaxone; repeat blood cultures were negative on 06/14/2017 # musculoskeletal and dermatological - L hand pain - dry skin - chronic wound of LLE - h/o infection of wound of LLE - h/o debridement of wound of LLE on 08/06/2017 - h/o recurrent herpes labialis, Pt took acyclovir, valacyclovir - h/o Osler's nodes (eschar) of R toes with erythematous skin; desquamation of the skin and open lacerations on R plantar foot. improved. Probable manifestation of endocarditis. Pt declined MRI on 08/06/2017 - h/o infection of R toes due to pseudomonas. coagulase negative Staph likely a colonizer - h/o intertrigo of the groin, resolved with nystatin powder - h/o scabies, locally crusted lesion over L scapula, s/p permethrin cream and pGT ivermectin on 08/11/2017, 08/12/2017, 08/19/2017. Repeat skin scraping on 08/21/2017 was negative for scabies # psych, neuro - decreased hearing b/l - s/p acute toxic metabolic encephalopathy - h/o critical illness polyneuropathy - anxiety/depression, bipolar d/o, seen by Psychiatry in the past - chronic pain syndrome - h/o medical non-compliance: she would refuse her medications, treatment and straight catheterization in 2018 # hematological, vascular - chronic anemia requiring blood transfusion intermittently - macrocytic anemia - aneurysmal dilatation of the distal aorta visualized on CT 06/15/2018 - PVD recommendations: - continue renally dosed amikacin for klebsiella in her blood culture (06/17- 06/22/2018), planned for 5 days - continue pGT vancomycin taper: 06/15/2018-06/21/2018 bid, 06/22-06/28: daily, 06/29- 07/05: q48hrs management d/w Pt, her SURGICAL SPECIALIST Consultation Date/Type/Reason Admit Date/Time May 06, 2018 at 17:38 Initial Consult Date 05/10/18 Type of Consult ID Requesting Provider: ROLAND GIRON MD Date/Time of Note DATE: 06/21/18 TIME: 17:27 24 HR Interval Summary Constitutional: other (weak); No chills, No febrile Detailed Summary Eyes: no complaints ENT: no complaints Respiratory: shortness of breath, other (+vent via trach) Cardiovascular: no complaints Gastrointestinal: diarrhea (+rectal tube); No pain, No nausea Genitourinary: other (FC) Musculoskeletal: restricted range of motion Skin: No pruritis, No rash Neurologic: focal-weakness Exam/Review of Systems Exam Vitals Vital Signs Date Temp Pulse Resp B/P (MAP) Pulse Ox O2 O2 Flow FiO2 Time Delivery Rate 06/21/18 65 16:11 06/21/18 98.6 20 104/57 100 Trach 15:34 (73) Collar 06/21/18 30 11:55 Intake and Output 06/20/18 06/20/18 06/21/18 1515:00 23:00 07:00 IntakeIntake Total 880 ml 1080 ml OutputOutput Total 900 ml 700 ml BalanceBalance -20 ml 380 ml Constitutional: non-verbal, frail Psych: confusion Head: normocephalic, atraumatic Eyes: nl conjunctiva, nl lids ENMT: nl external ears & nose, nl nasal mucosa & septum Neck: other (trach) Respiratory: diminished breath sounds Cardiovascular: regular rate and rhythm, nl pulses Gastrointestinal: soft, nl liver, spleen, non-tender, firm, other (+rectal tube); No distended, No surgical scars Musculoskeletal: other (nearly bed bound) Extremities: No edema Neurological: confused, other ([place]) Results Result Diagram: 06/20/1861206/20/18 0613 Medications Medication Current Medications IV Flush (NS 10 ml) 10 ml PRN IV ; Start 05/06/18 at 20:30 Ascorbic Acid (Vitamin C) 500 mg DAILY GTB Last administered on 06/21/18 09:00; Admin Dose 500 MG; Start 05/07/18 at 09:00 Albuterol/ Ipratropium (Duoneb) 3 ml Q2H RESP THERAPY PRN HHN SHORTNESS OF BREATH; Start 05/06/18 at 23:30 Zinc Sulfate (Zinc Sulfate) 220 mg DAILY GTB Last administered on 06/21/18 09:00; Admin Dose 220 MG; Start 05/07/18 at 09:00 Ondansetron HCl (Zofran Tab) 4 mg Q6H PRN GTB NAUSEA AND/OR VOMITING Last administered on 05/31/18 16:47; Admin Dose 4 MG; Start 05/07/18 at 00:15 Multivitamins (Multivitamin) 30 ml DAILY GTB Last administered on 06/21/18 09:00; Admin Dose 30 ML; Start 05/07/18 at 09:00 [facility] This patient goldman... PRN PRN XX WOUND CARE; Start 05/09/18 at 17:00 Spironolactone (Aldactone) 50 mg DAILY GTB Last administered on 06/21/18 09:01; Admin Dose 50 MG; Start 05/21/18 at 09:00 Famotidine (Pepcid) 20 mg DAILY PEG Last administered on 06/21/18 09:01; Admin Dose 20 MG; Start 05/23/18 at 09:00 Morphine Sulfate (morphine) 6 mg Q4H PRN PEG SEVERE PAIN LEVEL 7-10 Last administered on 06/21/18 16:24; Admin Dose 6 MG; Start 05/22/18 at 17:00 Albumin Human 100 ml @ 100 mls/hr DURING DIALYSIS PRN IV hypotension on hd Last administered on 05/29/18 14:49; Admin Dose 100 MLS/HR; Start 05/27/18 at 07:30 Cholestyramine Resin (Questran Light) 4 gm 0600,1200,1800,2300 PO Last administered on 06/21/18 17:20; Admin Dose 4 GM; Start 05/27/18 at 18:00 Lorazepam (Ativan) 0.5 mg Q4H PRN IV ANXIETY Last administered on 06/21/18 17:21; Admin Dose 0.5 MG; Start 05/30/18 at 12:00 Acetaminophen (Tylenol Tab) 650 mg Q4H PRN PO MILD PAIN(1-3)OR ELEVATED TEMP Last administered on 06/10/18 21:44; Admin Dose 650 MG; Start 05/31/18 at 13:00 Metoclopramide HCl (Reglan) 5 mg Q6 IV Last administered on 06/21/18 17:20; Admin Dose 5 MG; Start 05/31/18 at 13:00 Collagenase (Santyl) 1 applic DAILY TOP Last administered on 06/21/18 09:00; Admin Dose 1 APPLIC; Start 06/01/18 at 09:00 Clonidine (Catapres) 0.1 mg Q6H PRN PO ELEVATED BLOOD PRESSURE Last adminis tered on 06/17/18 05:59; Admin Dose 0.1 MG; Start 06/03/18 at 03:30 Metoprolol Tartrate (Lopressor) 75 mg Q8 GTB Last administered on 06/21/18 13:19; Admin Dose 75 MG; Start 06/08/18 at 14:00 Bumetanide (Bumex) 1 mg BID DIURETICS GTB Last administered on 06/21/18 17:20; Admin Dose 1 MG; Start 06/11/18 at 18:00 Amiodarone HCl (Cordarone) 200 mg Q12 PO Last administered on 06/21/18 09:00; Admin Dose 200 MG; Start 06/12/18 at 21:00 Collagenase (Santyl) 1 applic PRN PRN TOP WHEN SOILED; Start 06/13/18 at 01:00 Nystatin (Nystatin Powder) 1 applic BID TOP Last administered on 06/21/18 09:02; Admin Dose 1 APPLIC; Start 06/13/18 at 14:00 Vancomycin HCl (Vancomycin Oral Syringe) 250 mg BID GTB Last administered on 06/21/18 09:02; Admin Dose 250 MG; Start 06/15/18 at 09:00; Stop 06/22/18 at 08 :59 Vancomycin HCl (Vancomycin Oral Syringe) 250 mg DAILY GTB ; Start 06/22/18 at 09:00; Stop 06/29/18 at 08:59 Vancomycin HCl (Vancomycin Oral Syringe) 250 mg Q48H GTB ; Start 06/29/18 at 14:00; Stop 07/06/18 at 13:59 Epoetin Zen-epbx (RETACRIT(esrd)) 20,000 unit Tu@1700 SC Last administered on 06/16/18at 20:13; Admin Dose 20,000 UNIT; Start 06/16/18 at 18:30 Amikacin Sulfate (Amikacin Iv Per Pharmacy) AMIKACIN PER PHARMACY NOTE XX ; Start 06/17/18 at 11:30; Stop 06/22/18 at 11:29 Amlodipine Besylate (Norvasc) 5 mg DAILY PO Last administered on 06/21/18at 09:01; Admin Dose 5 MG; Start 06/17/18 at 11:30 Amikacin Sulfate 350 mg/Sodium Chloride 101.4 ml @ 102 mls/hr Q36H IVPB Last administered on 06/20/18at 16:09; Admin Dose 102 MLS/HR; Start 06/17/18 at 14:00; Stop 06/22/18 at 13:59 Miscellaneous Information (*Order Clarification Bulletin) MEDICATION REQUIRES CLARIFICATION:PLE... Q8H XX ; Start 06/20/18 at 09:30 CELESTINE MURPHY M.D. June 21, 2018 17:31
[2018-06-22] VITALS (22 sets, daily range): BP systolic 100–125; BP diastolic 50–63; PULSE 66–78; RESP 18–27
[2018-06-22] MEDS: AMIKACIN 350 MG in SOD CHLORIDE 0.9% 100 ML IVPB SCH (01:21)
[2018-06-22] MEDS: CHOLESTYRAMINE (LIGHT) 4 GM PACKET PO SCH ×4 (05:22→22:22)
[2018-06-22] MEDS: METOCLOPRAMIDE 10 MG INJ IV SCH ×4 (05:22→23:27)
[2018-06-22] MEDS: METOPROLOL 25 MG TAB GTB SCH ×3 (05:23→22:00)
[2018-06-22] MEDS: BUMETANIDE 1 MG TAB GTB SCH ×2 (05:23→18:10)
--- NOTE | 2018-06-22 09:04 | PN ---
DATE: 06/22/2018 SUBJECTIVE: The patient is stable, no events overnight. OBJECTIVE: VITAL SIGNS: Blood pressure is 112/57, pulse 76, respirations 24, temperature 98.6. HEENT: Head is normocephalic. NECK: Supple. HEART: Regular rate. LUNGS: Show diminished breath sounds at the base. ABDOMEN: Soft, nontender to palpation without rebound or guarding. EXTREMITIES: Negative for clubbing, cyanosis. Positive edema. DERMATOLOGIC: No rashes. MUSCULOSKELETAL: No joint effusion. NEUROLOGIC: No change in exam. MEDICATIONS: Reviewed. LABORATORY DATA: Reviewed. IMAGING STUDIES: Reviewed. ASSESSMENT AND PLAN: 1. Nonoliguric acute kidney injury on top of chronic kidney disease stage IIIB/IV with previous base line creatinine of around 2.0 mg/dL. Etiology of acute kidney injury is secondary to acute tubular n ecrosis. The patient is status post hemodialysis. Renal function stabilized. Continue current rosa tment plan, supportive care, renally dose all medications. 2. Volume overload, improving. Continue diuretic regimen. 3. Hyponatremia. We will decrease free water flushes, monitor sodium levels closely. 4. Hypokalemia. Continue to monitor and replete. 5. Metabolic acidosis. The patient's Bicitra has been discontinued. We will continue to monitor bi carbonate levels. 6. Hypomagnesemia. Continue to monitor and replete. 7. Anemia. Continue to monitor hemoglobin and hematocrit levels. Continue Epogen as needed. 8. Mineral bone disorder, monitor calcium and phosphorus levels. 9. Ventilator-dependent respiratory failure. Vent settings have been reviewed. Continue to monitor . 10. Sepsis, status post shock. The patient has completed antibiotic course. 11. Lower extremity wounds. Continue wound care. 12. Dysphagia. Continue tube feeding. 13. Encephalopathy. Continue to monitor. Dictated By: EJANA BANSAL DO NR/NTS Conf#: [id number] DID#: [id number] CC: QUINTEN UMAÑA MD; ROLAND GIRON MD;*EndCC*
[2018-06-22] MEDS: FAMOTIDINE 20 MG TAB PEG SCH (09:11)
[2018-06-22] MEDS: MULTIVITAMINS 30 ML CUP GTB SCH (09:11)
[2018-06-22] MEDS: ASCORBIC ACID 500 MG TAB GTB SCH (09:12)
[2018-06-22] MEDS: ZINC SULFATE 220 MG CAP GTB SCH (09:12)
[2018-06-22] MEDS: AMLODIPINE 5 MG TAB PO SCH (09:12)
[2018-06-22] MEDS: SPIRONOLACTONE 25 MG TAB GTB SCH (09:13)
[2018-06-22] MEDS: AMIODARONE 200 MG TAB PO SCH ×2 (09:13→22:23)
[2018-06-22] MEDS: BALSAM PERU/CASTOR OIL 60 GM TUBE TOP SCH ×2 (09:14→22:22)
[2018-06-22] MEDS: COLLAGENASE 5 GM (UD JAR) TOP SCH (09:14)
[2018-06-22] MEDS: NYSTATIN 30 GM POWDER BTL TOP SCH ×2 (09:14→22:22)
[2018-06-22] MEDS: VANCOMYCIN HCL 250 MG/5ML POSYG GTB SCH (09:19)
[2018-06-22] MEDS: morphine LIQ (10 MG/5 ML) CUP PEG PRN ×3 (09:21→22:33)
--- NOTE | 2018-06-22 10:42 | CONS ---
Assessment/Plan Assessment/Plan Hospital Course (Demo Recall) # sepsis, leukocytosis, SIRS, pulmonary, cardiac - recurrent leukocytosis due to recurrent UTI, improved - s/p septic shock due to pneumonia and C diff colitis - acute on chronic hypoxic respiratory failure, persistent - s/p reintubation 05/12/2018 - s/p re-do trach on 05/29/2018 - recurrent colonization of the anterior neck wound with ESBL+kleb, MRSA, GBS, corynebacteria on 05/06/2018, s/p meropenem - h/o pneumonia vs. colonization of the airway by pseudomonas and ESBL+klebsiella - h/o possible, recurrent HCAP due to pseudomonas and ESBL+klebsiella - h/o recurrent HCAP due to MRSA and Enterobacter (culture of tracheal aspirate on 07/16/2017 that was collected at [facility]) . Pt took vancomycin and ceftazidime - h/o decannulation prior to admission - h/o tracheostomy on 06/11/2017 - h/o SIRS from UGIB in 2018 - h/o thoracentesis on 07/18/2017, transudative (protein <2, LDH 279) - h/o bleeding from the trach site in 2018 - h/o septic shock due to pneumonia, ARDS, bacteremia, fungemia in 2018 - h/o ARDS in 2018 - h/o smoking - COPD - h/o ILD per medical record - h/o PAF, improved # GI - possible ileus or enterocolitis on CT abd/pel 06/15/2018 - C diff colitis, diagnosed on 05/11/2018. Pt's on pGT vancomycin induction followed by taper (05/11/2018-); Pt previously took IV metronidazole (05/11/2018- 05/29/2018; restart 05/30/2018-06/05/18) too - h/o intermittent diarrhea, Pt had multiple negative C. diff tests at [facility] at OSH in the past; none was positive until 05/11/2018 - dysphagia - h/o PEG placement 06/13/2018 - protein calorie malnutrition - h/o coffee ground emesis/UGIB on 12/23/2017 due to deep ulceration of distal esophagus and gastritis on EGD 12/26/2017. No e/o H. pylori - h/o possible appendicitis on CT on 11/22/2017, Pt took ertapenem (11/24/2017-12/01/2017) - h/o extensive adhesions lower abdominal and pelvis between small bowel to each other and to colon and to abdominal wall, anterior pelvic wall chronic abscess secondary to probably an old perforated diverticulitis, torsion of small bowel around these dense adhesion causing multiple obstructive points - h/o laparoscopic exploration and extensive lysis of adhesions and drainage of anterior pelvic wall abscess 09/16/2017. Cultures were negative, no e/o malignancy. 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 Pt is on amikacin x 5 days (06/17- 06/22/2018) - UTI due to pseudomonas and ESBL+klebsiella on 06/09/2018, Pt took one dose of fosfomycin on 06/10/2018 and cipro 06/12-06/15/2018 - anasarca - started on HD on 05/15/2018, via Juan in R groin - recurrent NATHAN on CKD - 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 Her strain of CRE was sensitive to colistin, Avycaz, and Vabomere but resistant to Zerbaxa (reported on 05/19/2018) - Hyponatremia - Hyperkalemia, now hypokalemia - Metabolic acidosis - adrenal insufficiency - h/o vaginal bleed in 2018 - h/o colonization of urinary tract by ESBL+klebsiella, VRE - h/o recurrent, symptomatic UTI due to carbapenem-resistant kleb (MDR strain) per urine culture 10/04/17, 10/09/17, 10/21/2017, Pt took colistin (10/09/2017- 10/15/2017), fosfomycin for carbapenemase-producing klebsiella and VRE on 10/25/2017 and 10/28/2017 - h/o funguria - h/o urinary retention # fungemia, bacteremia 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; Pt declined surgery for MVR per outside medical records; TTE 07/01/17 did not mention any thrombus; s/p voriconazole (05/25/2017-08/01/2017) - h/o bacteremia due to MSSA and proteus s/p ceftriaxone; repeat blood cultures were negative on 06/14/2017 # musculoskeletal and dermatological - L hand pain - dry skin - chronic wound of LLE - h/o infection of wound of LLE - h/o debridement of wound of LLE on 08/06/2017 - h/o recurrent herpes labialis, Pt took acyclovir, valacyclovir - h/o Osler's nodes (eschar) of R toes with erythematous skin; desquamation of the skin and open lacerations on R plantar foot. improved. Probable manifestation of endocarditis. Pt declined MRI on 08/06/2017 - h/o infection of R toes due to pseudomonas. coagulase negative Staph likely a colonizer - h/o intertrigo of the groin, resolved with nystatin powder - h/o scabies, locally crusted lesion over L scapula, s/p permethrin cream and pGT ivermectin on 08/11/2017, 08/12/2017, 08/19/2017. Repeat skin scraping on 08/21/2017 was negative for scabies # psych, neuro - decreased hearing b/l - s/p acute toxic metabolic encephalopathy - h/o critical illness polyneuropathy - anxiety/depression, bipolar d/o, seen by Psychiatry in the past - chronic pain syndrome - h/o medical non-compliance: she would refuse her medications, treatment and straight catheterization in 2018 # hematological, vascular - chronic anemia requiring blood transfusion intermittently - macrocytic anemia - aneurysmal dilatation of the distal aorta visualized on CT 06/15/2018 - PVD Recommendations: - Complete renally dosed amikacin for klebsiella in her urine culture today (06/17-06/22/2018) - Continue pGT vancomycin taper: 06/15/2018-06/21/2018 bid, 06/22-06/28: daily, 06/29- 07/05: q48hrs Management d/w Dr. Doyle. Thank you Consultation Date/Type/Reason Admit Date/Time May 06, 2018 at 17:38 Initial Consult Date 05/07/18 Type of Consult ID Requesting Provider: ROLAND GIRON MD Date/Time of Note DATE: 06/22/18 TIME: 10:38 24 HR Interval Summary Free Text/Dictation remains afebrile, wbc 8.4, no acute issues reported by nursing. Detailed Summary Eyes: no complaints ENT: no complaints Respiratory: cough, shortness of breath, sputum, other (+trach) Cardiovascular: no complaints Gastrointestinal: diarrhea, nausea, other (+rectal tube); No constipation, No decreased appetite, No vomiting Genitourinary: other (+f/c) Musculoskeletal: restricted range of motion Skin: No pruritis, No rash Neurologic: focal-weakness Psychological: nl mood/affect Exam/Review of Systems Exam Vitals Vital Signs Date Temp Pulse Resp B/P (MAP) Pulse Ox O2 O2 Flow FiO2 Time Delivery Rate 06/22/18 74 25 100 30 09:35 06/22/18 98.6 112/57 07:39 (75) 06/21/18 Trach 15:34 Collar Intake and Output 06/21/18 06/21/18 06/22/18 1515:00 23:00 07:00 IntakeIntake Total 1080 ml 991.4 ml OutputOutput Total 800 ml 1000 ml BalanceBalance 280 ml -8.6 ml Allergies Coded Allergies shellfish derived (Unverified Allergy, Unknown, 05/06/18) Exam Constitutional: alert, well developed, non-verbal, frail, obese, other (chronically debilitated, was awake and animated today) Psych: nl mood/affect Head: normocephalic, atraumatic Eyes: nl conjunctiva, nl lids, nl sclera ENMT: nl external ears & nose, nl nasal mucosa & septum Neck: supple, non-tender, other (on vent via trach, trach midline, site is c/d/i) Respiratory: normal air movement, diminished breath sounds (bilaterally, anteriorly); No wheezing Cardiovascular: regular rate and rhythm, nl pulses Gastrointestinal: soft, non-tender, bowel sounds (normoactive ), other (PEG site c/d/i, connected to TF, Flexiseal - empty tubing and bag and noted stool incontinence on the pad beneath the patient, the stool was a soft puree consistency); No distended, No firm Genitourinary - Female: other (F/c draining yellow urine. HD catheter R groin, site is c/d/i; +Intertrigo of groin) Musculoskeletal: muscle weakness, other (julia foot drop) Extremities: normal pulses, edema (BUE, BLE); No tenderness Neurological: other (awake, alert, follows simple commands, answers questions by mouthing words and shaking head yes or no) Skin: nl turgor, other (Reviewed nsg notes/photos. LLE dressing c/d/i) Results Result Diagram: 06/22/18 0706 06/22/18 0706 Results 24hrs Laboratory Tests Test 06/22/18 07:06 White Blood Count 8.4 Red Blood Count 2.08 L Hemoglobin 7.1 L Hematocrit 23.1 L Mean Corpuscular Volume 111.1 H Mean Corpuscular Hemoglobin 34.1 H Mean Corpuscular Hemoglobin Concent 30.7 L Red Cell Distribution Width 24.8 H Platelet Count 312 Mean Platelet Volume 9.7 Immature Granulocytes % 0.500 H Neutrophils % 78.3 H Lymphocytes % 10.1 L Monocytes % 6.6 Eosinophils % 4.4 Basophils % 0.1 Nucleated Red Blood Cells % 0.0 Immature Granulocytes # 0.040 H Neutrophils # 6.6 Lymphocytes # 0.9 Monocytes # 0.6 Eosinophils # 0.4 Basophils # 0.0 Nucleated Red Blood Cells # 0.0 Sodium Level 132 L Potassium Level 3.5 Chloride Level 98 Carbon Dioxide Level 25 Anion Gap 9 Blood Urea Nitrogen 55 H Creatinine 1.49 H Est Glomerular Filtrat Rate mL/min Glucose Level 101 Calcium Level 9.0 Medications Medication Current Medications IV Flush (NS 10 ml) 10 ml PRN IV ; Start 05/06/18 at 20:30 Ascorbic Acid (Vitamin C) 500 mg DAILY GTB Last administered on 5/6/19at 09:12; Admin Dose 500 MG; Start 05/07/18 at 09:00 Albuterol/ Ipratropium (Duoneb) 3 ml Q2H RESP THERAPY PRN HHN SHORTNESS OF BREATH; Start 05/06/18 at 23:30 Zinc Sulfate (Zinc Sulfate) 220 mg DAILY GTB Last administered on 06/22/18 09:12; Admin Dose 220 MG; Start 05/07/18 at 09:00 Ondansetron HCl (Zofran Tab) 4 mg Q6H PRN GTB NAUSEA AND/OR VOMITING Last administered on 05/31/18 16:47; Admin Dose 4 MG; Start 05/07/18 at 00:15 Multivitamins (Multivitamin) 30 ml DAILY GTB Last administered on 06/22/18 09:11; Admin Dose 30 ML; Start 05/07/18 at 09:00 Miscellaneous Information (Pending Santyl Order For Wound Care) This patient goldman... PRN PRN XX WOUND CARE; Start 05/09/18 at 17:00 Spironolactone (Aldactone) 50 mg DAILY GTB Last administered on 06/22/18 09:13; Admin Dose 50 MG; Start 05/21/18 at 09:00 Famotidine (Pepcid) 20 mg DAILY PEG Last administered on 06/22/18 09:11; Admin Dose 20 MG; Start 05/23/18 at 09:00 Morphine Sulfate (morphine) 6 mg Q4H PRN PEG SEVERE PAIN LEVEL 7-10 Last administered on 06/22/18 09:21; Admin Dose 6 MG; Start 05/22/18 at 17:00 Albumin Human 100 ml @ 100 mls/hr DURING DIALYSIS PRN IV hypotension on hd Last administered on 05/29/18 14:49; Admin Dose 100 MLS/HR; Start 05/27/18 at 07:30 Cholestyramine Resin (Questran Light) 4 gm 0600,1200,1800,2300 PO Last administered on 06/22/18 05:22; Admin Dose 4 GM; Start 05/27/18 at 18:00 Lorazepam (Ativan) 0.5 mg Q4H PRN IV ANXIETY Last administered on 06/21/18 17:21; Admin Dose 0.5 MG; Start 05/30/18 at 12:00 Acetaminophen (Tylenol Tab) 650 mg Q4H PRN PO MILD PAIN(1-3)OR ELEVATED TEMP Last administered on 06/10/18 21:44; Admin Dose 650 MG; Start 05/31/18 at 13:00 Metoclopramide HCl (Reglan) 5 mg Q6 IV Last administered on 06/22/18 05:22; Admin Dose 5 MG; Start 05/31/18 at 13:00 Collagenase (Santyl) 1 applic DAILY TOP Last administered on 06/22/18 09:14; Admin Dose 1 APPLIC; Start 06/01/18 at 09:00 Clonidine (Catapres) 0.1 mg Q6H PRN PO ELEVATED BLOOD PRESSURE Last administered on 06/17/18 05:59; Admin Dose 0.1 MG; Start 06/03/18 at 03:30 Metoprolol Tartrate (Lopressor) 75 mg Q8 GTB Last administered on 06/22/18 05:23; Admin Dose 75 MG; Start 06/08/18 at 14:00 Bumetanide (Bumex) 1 mg BID DIURETICS GTB Last administered on 06/22/18 05:23; Admin Dose 1 MG; Start 06/11/18 at 18:00 Amiodarone HCl (Cordarone) 200 mg Q12 PO Last administered on 06/22/18 09:13; Admin Dose 200 MG; Start 06/12/18 at 21:00 Collagenase (Santyl) 1 applic PRN PRN TOP WHEN SOILED; Start 06/13/18 at 01:00 Nystatin (Nystatin Powder) 1 applic BID TOP Last administered on 06/22/18 09:14; Admin Dose 1 APPLIC; Start 06/13/18 at 14:00 Vancomycin HCl (Vancomycin Oral Syringe) 250 mg DAILY GTB Last administered on 06/22/18 09:19; Admin Dose 250 MG; Start 06/22/18 at 09:00; Stop 06/29/18 at 08:59 Vancomycin HCl (Vancomycin Oral Syringe) 250 mg Q48H GTB ; Start 06/29/18 at 14:00; Stop 07/06/18 at 13:59 Epoetin Zen-epbx (RETACRIT(esrd)) 20,000 unit Tu@1700 SC Last administered on 4/30/19at 20:13; Admin Dose 20,000 UNIT; Start 06/16/18 at 18:30 Amikacin Sulfate (Amikacin Iv Per Pharmacy) AMIKACIN PER PHARMACY NOTE XX ; Start 06/17/18 at 11:30; Stop 06/22/18 at 11:29 Amlodipine Besylate (Norvasc) 5 mg DAILY PO Last administered on 06/22/18at 09:12; Admin Dose 5 MG; Start 06/17/18 at 11:30 Amikacin Sulfate 350 mg/Sodium Chloride 101.4 ml @ 102 mls/hr Q36H IVPB Last administered on 06/22/18at 01:21; Admin Dose 102 MLS/HR; Start 06/17/18 at 14:00; Stop 06/22/18 at 13:59 Miscellaneous Information (*Order Clarification Bulletin) MEDICATION REQUIRES CLARIFICATION:PLE... Q8H XX ; Start 06/20/18 at 09:30 KENA MÉNDEZ NP June 22, 2018 10:42
[2018-06-22] MEDS: ALBUTEROL/IPRATROPIUM (NEB) 3 ML AMP HHN PRN (11:03)
--- NOTE | 2018-06-22 11:19 | CONS ---
Assessment/Plan Assessment/Plan Hospital Course (Demo Recall) Septic as well as hemorrhagic shock-resolved Acute respiratory failure status post intubation and repeat tracheostomy Acute blood loss anemia History of respiratory failure status post decannulation Preserved ejection fraction echocardiogram 05/10/2018 Paroxysmal atrial fibrillation Acute kidney injury Hypertension -Patient with paroxysmal atrial fibrillation, has remained sinus with beta-bl ocker and amiodarone, continue as tolerated -Blood pressure trend improved on amlodipine, titrate as needed -Vent management as per pulmonary -Fluid management and electrolytes as per renal -Antibiotics as per infectious disease -No anticoagulation given recurrent anemia requiring blood transfusions Consultation Date/Type/Reason Admit Date/Time May 06, 2018 at 17:38 Initial Consult Date 05/10/18 Type of Consult Cardiology Requesting Provider: ROLAND GIRON MD Date/Time of Note DATE: 06/22/18 TIME: 11:18 24 HR Interval Summary Free Text/Dictation Denies shortness of breath, wheezing, palpitations Exam/Review of Systems Vital Signs Vitals Vital Signs Date Temp Pulse Resp B/P (MAP) Pulse Ox O2 O2 Flow FiO2 Time Delivery Rate 06/22/18 72 23 100 30 11:05 06/22/18 98.6 112/57 07:39 (75) 06/21/18 Trach 15:34 Collar Intake and Output 06/21/18 06/21/18 06/22/18 1515:00 23:00 07:00 IntakeIntake Total 1080 ml 991.4 ml OutputOutput Total 800 ml 1000 ml BalanceBalance 280 ml -8.6 ml Exam Constitutional: alert (Following commands, no apparent distress) Head: normocephalic Neck: other (Tracheostomy) Respiratory: other (Coarse breath sounds bilaterally, no wheezing) Cardiovascular: regular rate and rhythm (S1-S2 heard) Gastrointestinal: soft, non-tender, bowel sounds Extremities: edema Labs Result Diagram: 06/22/18 0706 06/22/18 0706 Results 24hrs Laboratory Tests Test 06/22/18 07:06 White Blood Count 8.4 Red Blood Count 2.08 L Hemoglobin 7.1 L Hematocrit 23.1 L Mean Corpuscular Volume 111.1 H Mean Corpuscular Hemoglobin 34.1 H Mean Corpuscular Hemoglobin Concent 30.7 L Red Cell Distribution Width 24.8 H Platelet Count 312 Mean Platelet Volume 9.7 Immature Granulocytes % 0.500 H Neutrophils % 78.3 H Lymphocytes % 10.1 L Monocytes % 6.6 Eosinophils % 4.4 Basophils % 0.1 Nucleated Red Blood Cells % 0.0 Immature Granulocytes # 0.040 H Neutrophils # 6.6 Lymphocytes # 0.9 Monocytes # 0.6 Eosinophils # 0.4 Basophils # 0.0 Nucleated Red Blood Cells # 0.0 Sodium Level 132 L Potassium Level 3.5 Chloride Level 98 Carbon Dioxide Level 25 Anion Gap 9 Blood Urea Nitrogen 55 H Creatinine 1.49 H Est Glomerular Filtrat Rate mL/min Glucose Level 101 Calcium Level 9.0 Medications Medications Current Medications IV Flush (NS 10 ml) 10 ml PRN IV ; Start 05/06/18 at 20:30 Ascorbic Acid (Vitamin C) 500 mg DAILY GTB Last administered on 06/22/18 09:12; Admin Dose 500 MG; Start 05/07/18 at 09:00 Albuterol/ Ipratropium (Duoneb) 3 ml Q2H RESP THERAPY PRN HHN SHORTNESS OF BREATH Last administered on 06/22/18 11:03; Admin Dose 3 ML; Start 05/06/18 at 23:30 Zinc Sulfate (Zinc Sulfate) 220 mg DAILY GTB Last administered on 06/22/18 09:12; Admin Dose 220 MG; Start 05/07/18 at 09:00 Ondansetron HCl (Zofran Tab) 4 mg Q6H PRN GTB NAUSEA AND/OR VOMITING Last administered on 05/31/18 16:47; Admin Dose 4 MG; Start 05/07/18 at 00:15 Multivitamins (Multivitamin) 30 ml DAILY GTB Last administered on 06/22/18 09:11; Admin Dose 30 ML; Start 05/07/18 at 09:00 Miscellaneous Information (Pending Santyl Order For Wound Care) This patient goldman... PRN PRN XX WOUND CARE; Start 05/09/18 at 17:00 Spironolactone (Aldactone) 50 mg DAILY GTB Last administered on 06/22/18 09:13; Admin Dose 50 MG; Start 05/21/18 at 09:00 Famotidine (Pepcid) 20 mg DAILY PEG Last administered on 06/22/18 09:11; Admin Dose 20 MG; Start 05/23/18 at 09:00 Morphine Sulfate (morphine) 6 mg Q4H PRN PEG SEVERE PAIN LEVEL 7-10 Last administered on 06/22/18 09:21; Admin Dose 6 MG; Start 05/22/18 at 17:00 Albumin Human 100 ml @ 100 mls/hr DURING DIALYSIS PRN IV hypotension on hd Last administered on 05/29/18 14:49; Admin Dose 100 MLS/HR; Start 05/27/18 at 07:30 Cholestyramine Resin (Questran Light) 4 gm 0600,1200,1800,2300 PO Last administered on 06/22/18 05:22; Admin Dose 4 GM; Start 05/27/18 at 18:00 Lorazepam (Ativan) 0.5 mg Q4H PRN IV ANXIETY Last administered on 06/21/18 17:21; Admin Dose 0.5 MG; Start 05/30/18 at 12:00 Acetaminophen (Tylenol Tab) 650 mg Q4H PRN PO MILD PAIN(1-3)OR ELEVATED TEMP Last administered on 06/10/18 21:44; Admin Dose 650 MG; Start 05/31/18 at 13:00 Metoclopramide HCl (Reglan) 5 mg Q6 IV Last administered on 06/22/18 05:22; Admin Dose 5 MG; Start 05/31/18 at 13:00 Collagenase (Santyl) 1 applic DAILY TOP Last administered on 06/22/18 09:14; Admin Dose 1 APPLIC; Start 06/01/18 at 09:00 Clonidine (Catapres) 0.1 mg Q6H PRN PO ELEVATED BLOOD PRESSURE Last administered on 06/17/18 05:59; Admin Dose 0.1 MG; Start 06/03/18 at 03:30 Metoprolol Tartrate (Lopressor) 75 mg Q8 GTB Last administered on 06/22/18 05:23; Admin Dose 75 MG; Start 06/08/18 at 14:00 Bumetanide (Bumex) 1 mg BID DIURETICS GTB Last administered on 06/22/18 05:23; Admin Dose 1 MG; Start 06/11/18 at 18:00 Amiodarone HCl (Cordarone) 200 mg Q12 PO Last administered on 06/22/18 09:13; Admin Dose 200 MG; Start 06/12/18 at 21:00 Collagenase (Santyl) 1 applic PRN PRN TOP WHEN SOILED; Start 06/13/18 at 01:00 Nystatin (Nystatin Powder) 1 applic BID TOP Last administered on 06/22/18at 09:14; Admin Dose 1 APPLIC; Start 06/13/18 at 14:00 Vancomycin HCl (Vancomycin Oral Syringe) 250 mg DAILY GTB Last administered on 06/22/18at 09:19; Admin Dose 250 MG; Start 06/22/18 at 09:00; Stop 06/29/18 at 08:59 Vancomycin HCl (Vancomycin Oral Syringe) 250 mg Q48H GTB ; Start 06/29/18 at 14:00; Stop 07/06/18 at 13:59 Epoetin Zen-epbx (RETACRIT(esrd)) 20,000 unit Tu@1700 SC Last administered on 06/16/18at 20:13; Admin Dose 20,000 UNIT; Start 06/16/18 at 18:30 Amikacin Sulfate (Amikacin Iv Per Pharmacy) AMIKACIN PER PHARMACY NOTE XX ; Start 06/17/18 at 11:30; Stop 06/22/18 at 11:29 Amlodipine Besylate (Norvasc) 5 mg DAILY PO Last administered on 06/22/18at 09:12; Admin Dose 5 MG; Start 06/17/18 at 11:30 Amikacin Sulfate 350 mg/Sodium Chloride 101.4 ml @ 102 mls/hr Q36H IVPB Last administered on 06/22/18at 01:21; Admin Dose 102 MLS/HR; Start 06/17/18 at 14:00; Stop 06/22/18 at 13:59 Miscellaneous Information (*Order Clarification Bulletin) MEDICATION REQUIRES CLARIFICATION:PLE... Q8H XX ; Start 06/20/18 at 09:30 Evangelista Scanlon DO June 22, 2018 11:19
[2018-06-22] MEDS: LORAZEPAM 2 MG INJ IV PRN ×2 (12:36→18:11)
--- NOTE | 2018-06-22 13:23 | PN ---
Date/Time of Note Date/Time of Note DATE: 06/22/18 TIME: 13:20 Assessment/Plan VTE Prophylaxis Risk score (from [facility])>0 risk: 11 SCD applied (from [facility]): Yes Pharmacological prophylaxis: NA/contraindicated Pharm contraindication: other Lines/Catheters IV Catheter Type (from [facility]): PICC Line Central line still needed: Yes Urinary Cath still in place: Yes Reason Cath still needed: urinary retention Assessment/Plan Hospital Course Patient is awake alert, continues on ventilatory support, no diarrhea, DC rectal tube. Assessment/Plan -MDR Klebsiella urinary tract infection, patient is currently on amikacin. Dr. Walton is following in infectious consultation. -Atrial fibrillation was rapid ventricular response, patient remains in sinus rhythm continue metoprolol and amiodarone. Dr. Scanlon is following in cardiology consultation. -S/p septic shock secondary to urinary tract infection, anterior neck soft tissue infection, and C. difficile colitis. -C-diff colitis, continue G-tube Vanco at the taper doses, -Acute respiratory failure requiring intubation and ventilatory support. Dr. Lambert is following in pulmonology consultation. -S/p tracheostomy on 05/29/18. -Acute kidney injury on chronic kidney disease. Started on HD this admission. Dr. Mckeon is following in nephrology consultation. -Anemia of chronic inflammation, stool for OB is negative, status post blood transfusion. Continue Epogen. -Metabolic acidosis, resolved. -Acute diastolic congestive heart failure. -Paroxysmal atrial fibrillation -COPD -Dysphagia with PEG. -G-tube mild malfunction, changed by GI Dr. Carolina is following in gastroenterology consultation. -Obesity Further recommendations based on clinical course. Plan of care discussed with Dr. Eisenberg. Result Diagram: 06/22/18 0706 06/22/18 0706 Results 24hrs Laboratory Tests Test 06/22/18 07:06 White Blood Count 8.4 Red Blood Count 2.08 L Hemoglobin 7.1 L Hematocrit 23.1 L Mean Corpuscular Volume 111.1 H Mean Corpuscular Hemoglobin 34.1 H Mean Corpuscular Hemoglobin Concent 30.7 L Red Cell Distribution Width 24.8 H Platelet Count 312 Mean Platelet Volume 9.7 Immature Granulocytes % 0.500 H Neutrophils % 78.3 H Lymphocytes % 10.1 L Monocytes % 6.6 Eosinophils % 4.4 Basophils % 0.1 Nucleated Red Blood Cells % 0.0 Immature Granulocytes # 0.040 H Neutrophils # 6.6 Lymphocytes # 0.9 Monocytes # 0.6 Eosinophils # 0.4 Basophils # 0.0 Nucleated Red Blood Cells # 0.0 Sodium Level 132 L Potassium Level 3.5 Chloride Level 98 Carbon Dioxide Level 25 Anion Gap 9 Blood Urea Nitrogen 55 H Creatinine 1.49 H Est Glomerular Filtrat Rate mL/min Glucose Level 101 Calcium Level 9.0 Exam/Review of Systems Exam Vitals Vital Signs Date Temp Pulse Resp B/P (MAP) Pulse Ox O2 O2 Flow FiO2 Time Delivery Rate 06/22/18 98.2 75 18 125/57 98 12:25 (79) 06/22/18 30 11:05 06/21/18 Trach 15:34 Collar Intake and Output 06/21/18 06/21/18 06/22/18 1414:59 22:59 06:59 IntakeIntake Total 1080 ml 991.4 ml OutputOutput Total 800 ml 1000 ml BalanceBalance 280 ml -8.6 ml Constitutional: alert, oriented Neck: other (Tracheostomy) Respiratory: diminished breath sounds Cardiovascular: regular rate and rhythm Gastrointestinal: soft, non-tender, other (G-tube) Extremities: normal pulses Neurological: nl mental status Results Results 24hrs Laboratory Tests Test 06/22/18 07:06 White Blood Count 8.4 Red Blood Count 2.08 L Hemoglobin 7.1 L Hematocrit 23.1 L Mean Corpuscular Volume 111.1 H Mean Corpuscular Hemoglobin 34.1 H Mean Corpuscular Hemoglobin Concent 30.7 L Red Cell Distribution Width 24.8 H Platelet Count 312 Mean Platelet Volume 9.7 Immature Granulocytes % 0.500 H Neutrophils % 78.3 H Lymphocytes % 10.1 L Monocytes % 6.6 Eosinophils % 4.4 Basophils % 0.1 Nucleated Red Blood Cells % 0.0 Immature Granulocytes # 0.040 H Neutrophils # 6.6 Lymphocytes # 0.9 Monocytes # 0.6 Eosinophils # 0.4 Basophils # 0.0 Nucleated Red Blood Cells # 0.0 Sodium Level 132 L Potassium Level 3.5 Chloride Level 98 Carbon Dioxide Level 25 Anion Gap 9 Blood Urea Nitrogen 55 H Creatinine 1.49 H Est Glomerular Filtrat Rate mL/min Glucose Level 101 Calcium Level 9.0 Medications Medication Current Medications IV Flush (NS 10 ml) 10 ml PRN IV ; Start 3/20/19 at 20:30 Ascorbic Acid (Vitamin C) 500 mg DAILY GTB Last administered on 06/22/18 09:12; Admin Dose 500 MG; Start 05/07/18 at 09:00 Albuterol/ Ipratropium (Duoneb) 3 ml Q2H RESP THERAPY PRN HHN SHORTNESS OF BREATH Last administered on 06/22/18 11:03; Admin Dose 3 ML; Start 05/06/18 at 23:30 Zinc Sulfate (Zinc Sulfate) 220 mg DAILY GTB Last administered on 06/22/18 09:12; Admin Dose 220 MG; Start 05/07/18 at 09:00 Ondansetron HCl (Zofran Tab) 4 mg Q6H PRN GTB NAUSEA AND/OR VOMITING Last administered on 05/31/18 16:47; Admin Dose 4 MG; Start 05/07/18 at 00:15 Multivitamins (Multivitamin) 30 ml DAILY GTB Last administered on 06/22/18 09:11; Admin Dose 30 ML; Start 05/07/18 at 09:00 [facility]isc[facility] This patient goldman... PRN PRN XX WOUND CARE; Start 05/09/18 at 17:00 Spironolactone (Aldactone) 50 mg DAILY GTB Last administered on 06/22/18 09:13; Admin Dose 50 MG; Start 05/21/18 at 09:00 Famotidine (Pepcid) 20 mg DAILY PEG Last administered on 06/22/18 09:11; Admin Dose 20 MG; Start 05/23/18 at 09:00 Morphine Sulfate (morphine) 6 mg Q4H PRN PEG SEVERE PAIN LEVEL 7-10 Last administered on 06/22/18 09:21; Admin Dose 6 MG; Start 05/22/18 at 17:00 Albumin Human 100 ml @ 100 mls/hr DURING DIALYSIS PRN IV hypotension on hd Last administered on 05/29/18 14:49; Admin Dose 100 MLS/HR; Start 05/27/18 at 07:30 Cholestyramine Resin (Questran Light) 4 gm 0600,1200,1800,2300 PO Last administered on 06/22/18 12:36; Admin Dose 4 GM; Start 05/27/18 at 18:00 Lorazepam (Ativan) 0.5 mg Q4H PRN IV ANXIETY Last administered on 06/22/18 12:36; Admin Dose 0.5 MG; Start 05/30/18 at 12:00 Acetaminophen (Tylenol Tab) 650 mg Q4H PRN PO MILD PAIN(1-3)OR ELEVATED TEMP Last administered on 06/10/18 21:44; Admin Dose 650 MG; Start 05/31/18 at 13:00 Metoclopramide HCl (Reglan) 5 mg Q6 IV Last administered on 06/22/18 12:26; Admin Dose 5 MG; Start 05/31/18 at 13:00 Collagenase (Santyl) 1 applic DAILY TOP Last administered on 06/22/18 09:14; Admin Dose 1 APPLIC; Start 06/01/18 at 09:00 Clonidine (Catapres) 0.1 mg Q6H PRN PO ELEVATED BLOOD PRESSURE Last administered on 06/17/18 05:59; Admin Dose 0.1 MG; Start 06/03/18 at 03:30 Metoprolol Tartrate (Lopressor) 75 mg Q8 GTB Last administered on 06/22/18 05:23; Admin Dose 75 MG; Start 06/08/18 at 14:00 Bumetanide (Bumex) 1 mg BID DIURETICS GTB Last administered on 06/22/18 05:23; Admin Dose 1 MG; Start 06/11/18 at 18:00 Amiodarone HCl (Cordarone) 200 mg Q12 PO Last administered on 06/22/18 09:13; Admin Dose 200 MG; Start 06/12/18 at 21:00 Collagenase (Santyl) 1 applic PRN PRN TOP WHEN SOILED; Start 06/13/18 at 01:00 Nystatin (Nystatin Powder) 1 applic BID TOP Last administered on 06/22/18 09:14; Admin Dose 1 APPLIC; Start 06/13/18 at 14:00 Vancomycin HCl (Vancomycin Oral Syringe) 250 mg DAILY GTB Last administered on 06/22/18 09:19; Admin Dose 250 MG; Start 06/22/18 at 09:00; Stop 06/29/18 at 08:59 Vancomycin HCl (Vancomycin Oral Syringe) 250 mg Q48H GTB ; Start 06/29/18 at 14:00; Stop 07/06/18 at 13:59 Epoetin Zen-epbx (RETACRIT(esrd)) 20,000 unit Tu@1700 SC Last administered on 06/16/18at 20:13; Admin Dose 20,000 UNIT; Start 06/16/18 at 18:30 Amlodipine Besylate (Norvasc) 5 mg DAILY PO Last administered on 06/22/18at 09:12; Admin Dose 5 MG; Start 06/17/18 at 11:30 Amikacin Sulfate 350 mg/Sodium Chloride 101.4 ml @ 102 mls/hr Q36H IVPB Last administered on 06/22/18at 01:21; Admin Dose 102 MLS/HR; Start 06/17/18 at 14:00; Stop 06/22/18 at 13:59 Miscellaneous Information (*Order Clarification Bulletin) MEDICATION REQUIRES CLARIFICATION:PLE... Q8H XX ; Start 06/20/18 at 09:30 GRISELDA DENNIS June 22, 2018 13:23
--- NOTE | 2018-06-22 14:47 | CONS ---
Consult Date/Type/Reason Admit Date/Time May 06, 2018 at 17:38 Initial Consult Date 05/10/18 Type of Consult Pulmonary Requesting Provider: ROLAND GIRON MD Date/Time of Note DATE: 06/22/18 TIME: 14:46 Subjective Patient appears comfortable this morning. Objective Vital Signs Date Temp Pulse Resp B/P (MAP) Pulse Ox O2 O2 Flow FiO2 Time Delivery Rate 06/22/18 76 24 99 30 13:50 06/22/18 98.2 125/57 12:25 (79) 06/21/18 Trach 15:34 Collar Intake and Output 06/21/18 06/21/18 06/22/18 1515:00 23:00 07:00 IntakeIntake Total 1080 ml 991.4 ml OutputOutput Total 800 ml 1000 ml BalanceBalance 280 ml -8.6 ml Exam GENERAL: Elderly appearing lady on mechanical ventilation VITAL SIGNS: per chart NECK: Supple. No JVD or lymphadenopathy. CARDIAC EXAM: S1, S2. No added sounds or murmurs. CHEST: clear bilaterally, No added sounds, rales or wheezes ABDOMEN: Soft, nontender. No guarding or rebound. EXTREMITIES: No cyanosis, clubbing or edema. NEUROLOGIC: Generalized weakness. No focal deficits. Vent Setting Ventilator Support Mode: AC Fraction of Inspired Oxygen pe: 30 Positive End Expiratory Pressu: 5.0 Results/Medications Result Diagram: 06/22/18 0706 06/22/18 0706 Results 24 hrs Laboratory Tests Test 06/22/18 07:06 White Blood Count 8.4 Red Blood Count 2.08 L Hemoglobin 7.1 L Hematocrit 23.1 L Mean Corpuscular Volume 111.1 H Mean Corpuscular Hemoglobin 34.1 H Mean Corpuscular Hemoglobin Concent 30.7 L Red Cell Distribution Width 24.8 H Platelet Count 312 Mean Platelet Volume 9.7 Immature Granulocytes % 0.500 H Neutrophils % 78.3 H Lymphocytes % 10.1 L Monocytes % 6.6 Eosinophils % 4.4 Basophils % 0.1 Nucleated Red Blood Cells % 0.0 Immature Granulocytes # 0.040 H Neutrophils # 6.6 Lymphocytes # 0.9 Monocytes # 0.6 Eosinophils # 0.4 Basophils # 0.0 Nucleated Red Blood Cells # 0.0 Sodium Level 132 L Potassium Level 3.5 Chloride Level 98 Carbon Dioxide Level 25 Anion Gap 9 Blood Urea Nitrogen 55 H Creatinine 1.49 H Est Glomerular Filtrat Rate mL/min Glucose Level 101 Calcium Level 9.0 Medications Current Medications IV Flush (NS 10 ml) 10 ml PRN IV ; Start 05/06/18 at 20:30 Ascorbic Acid (Vitamin C) 500 mg DAILY GTB Last administered on 06/22/18 09:12; Admin Dose 500 MG; Start 05/07/18 at 09:00 Albuterol/ Ipratropium (Duoneb) 3 ml Q2H RESP THERAPY PRN HHN SHORTNESS OF BREATH Last administered on 06/22/18 11:03; Admin Dose 3 ML; Start 05/06/18 at 23:30 Zinc Sulfate (Zinc Sulfate) 220 mg DAILY GTB Last administered on 06/22/18 09:12; Admin Dose 220 MG; Start 05/07/18 at 09:00 Ondansetron HCl (Zofran Tab) 4 mg Q6H PRN GTB NAUSEA AND/OR VOMITING Last administered on 05/31/18 16:47; Admin Dose 4 MG; Start 05/07/18 at 00:15 Multivitamins (Multivitamin) 30 ml DAILY GTB Last administered on 06/22/18 09:11; Admin Dose 30 ML; Start 05/07/18 at 09:00 [facility] This patient goldman... PRN PRN XX WOUND CARE; Start 05/09/18 at 17:00 Spironolactone (Aldactone) 50 mg DAILY GTB Last administered on 06/22/18 09:13; Admin Dose 50 MG; Start 05/21/18 at 09:00 Famotidine (Pepcid) 20 mg DAILY PEG Last administered on 06/22/18 09:11; Admin Dose 20 MG; Start 05/23/18 at 09:00 Morphine Sulfate (morphine) 6 mg Q4H PRN PEG SEVERE PAIN LEVEL 7-10 Last administered on 06/22/18 14:09; Admin Dose 6 MG; Start 05/22/18 at 17:00 Albumin Human 100 ml @ 100 mls/hr DURING DIALYSIS PRN IV hypotension on hd Last administered on 05/29/18 14:49; Admin Dose 100 MLS/HR; Start 05/27/18 at 07:30 Cholestyramine Resin (Questran Light) 4 gm 0600,1200,1800,2300 PO Last administered on 06/22/18 12:36; Admin Dose 4 GM; Start 05/27/18 at 18:00 Lorazepam (Ativan) 0.5 mg Q4H PRN IV ANXIETY Last administered on 06/22/18 12:36; Admin Dose 0.5 MG; Start 05/30/18 at 12:00 Acetaminophen (Tylenol Tab) 650 mg Q4H PRN PO MILD PAIN(1-3)OR ELEVATED TEMP Last administered on 06/10/18 21:44; Admin Dose 650 MG; Start 05/31/18 at 13:00 Metoclopramide HCl (Reglan) 5 mg Q6 IV Last administered on 06/22/18 12:26; Admin Dose 5 MG; Start 05/31/18 at 13:00 Collagenase (Santyl) 1 applic DAILY TOP Last administered on 06/22/18 09:14; Admin Dose 1 APPLIC; Start 06/01/18 at 09:00 Clonidine (Catapres) 0.1 mg Q6H PRN PO ELEVATED BLOOD PRESSURE Last administered on 06/17/18 05:59; Admin Dose 0.1 MG; Start 06/03/18 at 03:30 Metoprolol Tartrate (Lopressor) 75 mg Q8 GTB Last administered on 06/22/18 05:23; Admin Dose 75 MG; Start 06/08/18 at 14:00 Bumetanide (Bumex) 1 mg BID DIURETICS GTB Last administered on 06/22/18 05:23; Admin Dose 1 MG; Start 06/11/18 at 18:00 Amiodarone HCl (Cordarone) 200 mg Q12 PO Last administered on 06/22/18 09:13; Admin Dose 200 MG; Start 06/12/18 at 21:00 Collagenase (Santyl) 1 applic PRN PRN TOP WHEN SOILED; Start 06/13/18 at 01:00 Nystatin (Nystatin Powder) 1 applic BID TOP Last administered on 06/22/18 09:14; Admin Dose 1 APPLIC; Start 06/13/18 at 14:00 Vancomycin HCl (Vancomycin Oral Syringe) 250 mg DAILY GTB Last administered on 06/22/18 09:19; Admin Dose 250 MG; Start 06/22/18 at 09:00; Stop 06/29/18 at 08:59 Vancomycin HCl (Vancomycin Oral Syringe) 250 mg Q48H GTB ; Start 06/29/18 at 14:00; Stop 07/06/18 at 13:59 Epoetin Zen-epbx (RETACRIT(esrd)) 20,000 unit Tu@1700 SC Last administered on 06/16/18at 20:13; Admin Dose 20,000 UNIT; Start 06/16/18 at 18:30 Amlodipine Besylate (Norvasc) 5 mg DAILY PO Last administered on 06/22/18at 09 :12; Admin Dose 5 MG; Start 06/17/18 at 11:30 Miscellaneous Information (*Order Clarification Bulletin) MEDICATION REQUIRES CLARIFICATION:PLE... Q8H XX ; Start 06/20/18 at 09:30 Assessment/Plan Hospital Course (Demo Recall) IMP: 1. Sepsis 2. Acute Renal Failure 3. VDRF 4. Encephalopathy 5. Anemia 6. H/O abdominal abscess 7. Atrial fibrillation with RVR RECS: 1. Vent support 2. CPT/suctioning 3. TF/Free H20 4. Rate control as per CV DC planning? LAURA JENKINS MD, [facility] June 22, 2018 14:47
[2018-06-23] VITALS (25 sets, daily range): BP systolic 99–128; BP diastolic 45–67; PULSE 73–85; RESP 18–26
[2018-06-23] MEDS: METOCLOPRAMIDE 10 MG INJ IV SCH ×4 (05:04→23:52)
[2018-06-23] MEDS: BUMETANIDE 1 MG TAB GTB SCH ×2 (05:12→17:15)
[2018-06-23] MEDS: METOPROLOL 25 MG TAB GTB SCH ×3 (05:13→22:44)
[2018-06-23] MEDS: CHOLESTYRAMINE (LIGHT) 4 GM PACKET PO SCH ×4 (05:17→22:45)
[2018-06-23] MEDS: morphine LIQ (10 MG/5 ML) CUP PEG PRN ×4 (06:42→22:44)
[2018-06-23] MEDS ORDERED: MAGNESIUM SULFATE 2 GM/50 ML 50 ML IVPB ONE (08:30)
--- NOTE | 2018-06-23 08:49 | PN ---
DATE: 06/23/2018 SUBJECTIVE: The patient is stable, no events overnight. OBJECTIVE: VITAL SIGNS: Blood pressure is 112/63, pulse 78, respirations 20, temperature 98.6. HEENT: Head is normocephalic. NECK: Supple. HEART: Regular rate. LUNGS: Show diminished breath sounds at the base. ABDOMEN: Soft, nontender to palpation without rebound or guarding. EXTREMITIES: Negative for clubbing, cyanosis. Positive edema. DERMATOLOGIC: No rashes. MUSCULOSKELETAL: No joint effusion. NEUROLOGIC: No change in exam. MEDICATIONS: Reviewed. LABORATORY DATA: From 06/23/2018 was reviewed. ASSESSMENT AND PLAN: 1. Nonoliguric acute kidney injury on top of chronic kidney disease stage IIIB/IV with previous base line creatinine of around 2.0 mg/dL. Etiology of acute kidney injury is secondary to acute tubular n ecrosis. The patient is status post hemodialysis. Renal function stabilized. Continue current plan s, supportive care, renally dose all medications. 2. Volume overload, improving. Continue intermittent diuretic therapy. 3. Hypernatremia. The patient's free water flushes have been decreased. Continue to monitor. 4. Hypomagnesemia. We will replete with magnesium sulfate. 5. Metabolic acidosis, resolved. 6. Anemia. Continue to monitor hemoglobin and hematocrit levels. Continue Epogen. We will check a n iron panel. The patient may require an iron run. 7. Mineral bone disorder, monitor calcium and phosphorus levels. 8. Ventilator-dependent respiratory failure. Vent settings have been reviewed. Continue to monitor . 9. Sepsis status post shock. The patient is completing antibiotic course. 10. Lower extremity wounds. Continue wound care. 11. Dysphagia. Continue tube feeding. 12. Encephalopathy. Continue to monitor. Dictated By: JEANA BANSAL DO NR/NTS Conf#: [id number] DID#: [id number] CC: QUINTEN UMAÑA MD; ROLAND GIRON MD;*EndCC*
[2018-06-23] MEDS: MULTIVITAMINS 30 ML CUP GTB SCH (09:59)
[2018-06-23] MEDS: BALSAM PERU/CASTOR OIL 60 GM TUBE TOP SCH ×2 (09:59→22:45)
[2018-06-23] MEDS: NYSTATIN 30 GM POWDER BTL TOP SCH ×2 (09:59→22:45)
[2018-06-23] MEDS: ZINC SULFATE 220 MG CAP GTB SCH (09:59)
[2018-06-23] MEDS: AMLODIPINE 5 MG TAB PO SCH (09:59)
[2018-06-23] MEDS: FAMOTIDINE 20 MG TAB PEG SCH (09:59)
[2018-06-23] MEDS: SPIRONOLACTONE 25 MG TAB GTB SCH (09:59)
[2018-06-23] MEDS: AMIODARONE 200 MG TAB PO SCH ×2 (09:59→22:44)
[2018-06-23] MEDS: ASCORBIC ACID 500 MG TAB GTB SCH (09:59)
[2018-06-23] MEDS: COLLAGENASE 5 GM (UD JAR) TOP SCH (09:59)
[2018-06-23] MEDS: VANCOMYCIN HCL 250 MG/5ML POSYG GTB SCH (10:07)
[2018-06-23] MEDS: SOD FERRIC GLUC COMPLX 125 MG in SOD CHLORIDE 0.9% 100 ML IVPB SCH (12:44)
--- NOTE | 2018-06-23 15:11 | CONS ---
Assessment/Plan Assessment/Plan Hospital Course (Demo Recall) # sepsis, leukocytosis, SIRS, pulmonary, cardiac - recurrent leukocytosis due to recurrent UTI, improved - s/p septic shock due to pneumonia and C diff colitis - acute on chronic hypoxic respiratory failure, persistent - s/p reintubation 05/12/2018 - s/p re-do trach on 05/29/2018 - recurrent colonization of the anterior neck wound with ESBL+kleb, MRSA, GBS, corynebacteria on 05/06/2018, s/p meropenem - h/o pneumonia vs. colonization of the airway by pseudomonas and ESBL+klebsiella - h/o possible, recurrent HCAP due to pseudomonas and ESBL+klebsiella - h/o recurrent HCAP due to MRSA and Enterobacter (culture of tracheal aspirate on 07/16/2017 that was collected at [facility]) . Pt took vancomycin and ceftazidime - h/o decannulation prior to admission - h/o tracheostomy on 06/11/2017 - h/o SIRS from UGIB in 2018 - h/o thoracentesis on 07/18/2017, transudative (protein <2, LDH 279) - h/o bleeding from the trach site in 2018 - h/o septic shock due to pneumonia, ARDS, bacteremia, fungemia in 2018 - h/o ARDS in 2018 - h/o smoking - COPD - h/o ILD per medical record - h/o PAF, improved # GI - possible ileus or enterocolitis on CT abd/pel 06/15/2018 - C diff colitis, diagnosed on 05/11/2018. Pt's on pGT vancomycin induction followed by taper (05/11/2018-); Pt previously took IV metronidazole (05/11/2018- 05/29/2018; restart 05/30/2018-06/05/18) too - h/o intermittent diarrhea, Pt had multiple negative C. diff tests at [facility] at OSH in the past; none was positive until 05/11/2018 - dysphagia - h/o PEG placement 06/13/2018 - protein calorie malnutrition - h/o coffee ground emesis/UGIB on 12/23/2017 due to deep ulceration of distal esophagus and gastritis on EGD 12/26/2017. No e/o H. pylori - h/o possible appendicitis on CT on 11/22/2017, Pt took ertapenem (11/24/2017-12/01/2017) - h/o extensive adhesions lower abdominal and pelvis between small bowel to each other and to colon and to abdominal wall, anterior pelvic wall chronic abscess secondary to probably an old perforated diverticulitis, torsion of small bowel around these dense adhesion causing multiple obstructive points - h/o laparoscopic exploration and extensive lysis of adhesions and drainage of anterior pelvic wall abscess 09/16/2017. Cultures were negative, no e/o malignancy. 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 S/p renally dosed amikacin for klebsiella in her urine culture (06/17-06/22/2018) - UTI due to pseudomonas and ESBL+klebsiella on 06/09/2018, Pt took one dose of fosfomycin on 06/10/2018 and cipro 06/12-06/15/2018 - anasarca - started on HD on 05/15/2018, via Juan in R groin - recurrent NATHAN on CKD - 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 Her strain of CRE was sensitive to colistin, Avycaz, and Vabomere but resistant to Zerbaxa (reported on 05/19/2018) - Hyponatremia - Hyperkalemia, now hypokalemia - Metabolic acidosis - adrenal insufficiency - h/o vaginal bleed in 2018 - h/o colonization of urinary tract by ESBL+klebsiella, VRE - h/o recurrent, symptomatic UTI due to carbapenem-resistant kleb (MDR strain) per urine culture 10/04/17, 10/09/17, 10/21/2017, P took colistin (10/09/2017- 10/15/2017), fosfomycin for carbapenemase-producing klebsiella and VRE on 10/25/2017 and 10/28/2017 - h/o funguria - h/o urinary retention # fungemia, bacteremia 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; Pt declined surgery for MVR per outside medical records; TTE 07/01/17 did not mention any thrombus; s/p voriconazole (05/25/2017-08/01/2017) - h/o bacteremia due to MSSA and proteus s/p ceftriaxone; repeat blood cultures were negative on 06/14/2017 # musculoskeletal and dermatological - L hand pain - dry skin - chronic wound of LLE - h/o infection of wound of LLE - h/o debridement of wound of LLE on 08/06/2017 - h/o recurrent herpes labialis, Pt took acyclovir, valacyclovir - h/o Osler's nodes (eschar) of R toes with erythematous skin; desquamation of the skin and open lacerations on R plantar foot. improved. Probable m anifestation of endocarditis. Pt declined MRI on 08/06/2017 - h/o infection of R toes due to pseudomonas. coagulase negative Staph likely a colonizer - h/o intertrigo of the groin, resolved with nystatin powder - h/o scabies, locally crusted lesion over L scapula, s/p permethrin cream and pGT ivermectin on 08/11/2017, 08/12/2017, 08/19/2017. Repeat skin scraping on 08/21/2017 was negative for scabies # psych, neuro - decreased hearing b/l - s/p acute toxic metabolic encephalopathy - h/o critical illness polyneuropathy - anxiety/depression, bipolar d/o, seen by Psychiatry in the past - chronic pain syndrome - h/o medical non-compliance: she would refuse her medications, treatment and straight catheterization in 2018 # hematological, vascular - chronic anemia requiring blood transfusion intermittently - macrocytic anemia - aneurysmal dilatation of the distal aorta visualized on CT 06/15/2018 - PVD Recommendations: - Monitor closely off systemic antibiotics. S/p renally dosed amikacin for klebsiella in her urine culture (06/17-06/22/2018) - Continue pGT vancomycin taper: 06/15/2018-06/21/2018 bid, 06/22-06/28: daily, 06/29- 07/05: q48hrs Management d/w patient, RN Leslie, and with Dr. Doyle. Consultation Date/Type/Reason Admit Date/Time May 06, 2018 at 17:38 Initial Consult Date 05/07/18 Type of Consult Infectious Disease Requesting Provider: ROLAND GIRON MD Date/Time of Note DATE: 06/23/18 TIME: 15:08 24 HR Interval Summary Free Text/Dictation Pt mouths out "Not doing well". C/o back pain and nods yes to wanting pain medication. Pt was recently medicated for pain per d/w nursing. Had formed BM overnight. No BM yet today. Subjective hx not possible: pt non-verbal Exam/Review of Systems Exam Vitals Vital Signs Date Temp Pulse Resp B/P (MAP) Pulse Ox O2 O2 Flow FiO2 Time Delivery Rate 06/23/18 76 21 100 30 13:08 06/23/18 98.0 118/67 12:41 (84) 06/21/18 Trach 15:34 Collar Intake and Output 06/22/18 06/22/18 06/23/18 1515:00 23:00 07:00 IntakeIntake Total 640 ml 780 ml OutputOutput Total 700 ml 950 ml BalanceBalance -60 ml -170 ml Exam Constitutional: alert, well developed, non-verbal, frail, obese, (chronically debilitated) Psych: nl mood/affect Head: normocephalic, atraumatic Eyes: nl conjunctiva, nl lids, nl sclera ENMT: nl external ears & nose, nl nasal mucosa & septum, other (MM pink and moist with no thrush) Neck: other (+trach connected to ventilator support) Respiratory: diminished breath sounds Cardiovascular: regular rate and rhythm, nl pulses Gastrointestinal: soft, other (+GT; soft mushy stool noted, small amount ->RN notified) Genitourinary - Female: other (+Garza) Musculoskeletal: nl extremities to inspection; No swelling Extremities: normal pulses, edema, other (bilateral foot drop); No tenderness Neurological: other (non-verbal; nods to simple questions and mouths out words; follows simple commands) Skin: nl turgor, other (intertrigo on perineal area which is covered with Calmoseptine; BLE SCDs in place; wounds - nurses notes and photos reviewed in chart) Results Result Diagram: 06/23/18 0638 06/23/18 0638 Results 24hrs Laboratory Tests Test 06/23/18 06:38 White Blood Count 8.6 Red Blood Count 2.01 L Hemoglobin 6.9 *L Hematocrit 22.3 L Mean Corpuscular Volume 110.9 H Mean Corpuscular Hemoglobin 34.3 H Mean Corpuscular Hemoglobin Concent 30.9 L Red Cell Distribution Width 24.1 H Platelet Count 341 Mean Platelet Volume 9.8 Immature Granulocytes % 0.300 Neutrophils % 77.7 H Segmented Neutrophils % (Manual) 77 Band Neutrophils % (Manual) 5 H Lymphocytes % 10.0 L Lymphocytes % (Manual) 7 L Reactive Lymphocytes % (Manual) 2 H Monocytes % 7.5 Monocytes % (Manual) 5 Eosinophils % 4.3 Eosinophils % (Manual) 4 Basophils % 0.2 Nucleated Red Blood Cells % 0.0 Immature Granulocytes # 0.030 Neutrophils # 6.7 Neutrophils # (Manual) 6.7 Band Neutrophils # 0.4 Lymphocytes (Manual) 0.6 L Lymphocytes # 0.9 Reactive Lymphocytes # 0.1 H Monocytes # 0.6 Monocytes # (Manual) 0.4 Eosinophils # 0.4 Basophils # 0.0 Nucleated Red Blood Cells # 0.0 Pathologist Review (Hematology) YES Platelet Estimate NORMAL Polychromasia 3+ Anisocytosis 2+ Microcytosis 1+ Macrocytosis 1+ Spherocytes 1+ Sodium Level 133 L Potassium Level 3.8 Chloride Level 99 Carbon Dioxide Level 24 Anion Gap 10 Blood Urea Nitrogen 57 H Creatinine 1.52 H Est Glomerular Filtrat Rate mL/min Glucose Level 95 Calcium Level 9.0 Phosphorus Level 4.0 Magnesium Level 1.4 L Medications Medication Current Medications IV Flush (NS 10 ml) 10 ml PRN IV ; Start 05/06/18 at 20:30 Ascorbic Acid (Vitamin C) 500 mg DAILY GTB Last administered on 06/23/18at 09:59; Admin Dose 500 MG; Start 05/07/18 at 09:00 Albuterol/ Ipratropium (Duoneb) 3 ml Q2H RESP THERAPY PRN HHN SHORTNESS OF BREATH Last administered on 06/22/18 11:03; Admin Dose 3 ML; Start 05/06/18 at 23:30 Zinc Sulfate (Zinc Sulfate) 220 mg DAILY GTB Last administered on 06/23/18 09:59; Admin Dose 220 MG; Start 05/07/18 at 09:00 Ondansetron HCl (Zofran Tab) 4 mg Q6H PRN GTB NAUSEA AND/OR VOMITING Last administered on 05/31/18 16:47; Admin Dose 4 MG; Start 05/07/18 at 00:15 Multivitamins (Multivitamin) 30 ml DAILY GTB Last administered on 06/23/18 09:59; Admin Dose 30 ML; Start 05/07/18 at 09:00 Miscellaneous Information (Pending [facility] Order For Wound Care) This patient goldman... PRN PRN XX WOUND CARE; Start 05/09/18 at 17:00 Spironolactone (Aldactone) 50 mg DAILY GTB Last administered on 06/23/18 09:59; Admin Dose 50 MG; Start 05/21/18 at 09:00 Famotidine (Pepcid) 20 mg DAILY PEG Last administered on 06/23/18 09:59; Admin Dose 20 MG; Start 05/23/18 at 09:00 Morphine Sulfate (morphine) 6 mg Q4H PRN PEG SEVERE PAIN LEVEL 7-10 Last administered on 06/23/18 12:44; Admin Dose 6 MG; Start 05/22/18 at 17:00 Albumin Human 100 ml @ 100 mls/hr DURING DIALYSIS PRN IV hypotension on hd Last administered on 05/29/18 14:49; Admin Dose 100 MLS/HR; Start 05/27/18 at 07:30 Cholestyramine Resin (Questran Light) 4 gm 0600,1200,1800,2300 PO Last administered on 06/23/18 12:30; Admin Dose 4 GM; Start 05/27/18 at 18:00 Lorazepam (Ativan) 0.5 mg Q4H PRN IV ANXIETY Last administered on 06/22/18 18:11; Admin Dose 0.5 MG; Start 05/30/18 at 12:00 Acetaminophen (Tylenol Tab) 650 mg Q4H PRN PO MILD PAIN(1-3)OR ELEVATED TEMP Last administered on 06/10/18 21:44; Admin Dose 650 MG; Start 05/31/18 at 13:00 Metoclopramide HCl (Reglan) 5 mg Q6 IV Last administered on 06/23/18 12:30; Admin Dose 5 MG; Start 05/31/18 at 13:00 Collagenase (Santyl) 1 applic DAILY TOP Last administered on 06/23/18 09:59; Admin Dose 1 APPLIC; Start 06/01/18 at 09:00 Clonidine (Catapres) 0.1 mg Q6H PRN PO ELEVATED BLOOD PRESSURE Last administered on 06/17/18 05:59; Admin Dose 0.1 MG; Start 06/03/18 at 03:30 Metoprolol Tartrate (Lopressor) 75 mg Q8 GTB Last administered on 06/22/18 05:23; Admin Dose 75 MG; Start 06/08/18 at 14:00 Bumetanide (Bumex) 1 mg BID DIURETICS GTB Last administered on 06/23/18 05:12; Admin Dose 1 MG; Start 06/11/18 at 18:00 Amiodarone HCl (Cordarone) 200 mg Q12 PO Last administered on 06/23/18 09:59; Admin Dose 200 MG; Start 06/12/18 at 21:00 Collagenase (Santyl) 1 applic PRN PRN TOP WHEN SOILED; Start 06/13/18 at 01:00 Nystatin (Nystatin Powder) 1 applic BID TOP Last administered on 06/23/18 09:59; Admin Dose 1 APPLIC; Start 06/13/18 at 14:00 Vancomycin HCl (Vancomycin Oral Syringe) 250 mg DAILY GTB Last administered on 06/23/18 10:07; Admin Dose 250 MG; Start 06/22/18 at 09:00; Stop 06/29/18 at 08:59 Vancomycin HCl (Vancomycin Oral Syringe) 250 mg Q48H GTB ; Start 06/29/18 at 14:00; Stop 07/06/18 at 13:59 Epoetin Zen-epbx (RETACRIT(esrd)) 20,000 unit Tu@1700 SC Last administered on 06/16/18 20:13; Admin Dose 20,000 UNIT; Start 06/16/18 at 18:30 Amlodipine Besylate (Norvasc) 5 mg DAILY PO Last administered on 06/23/18 09:59; Admin Dose 5 MG; Start 06/17/18 at 11:30 Miscellaneous Information (*Order Clarification Bulletin) MEDICATION REQUIRES CLARIFICATION:PLE... Q8H XX Last administered on 06/22/18 23:27; Admin Dose 1 EA; Start 06/20/18 at 09:30 Ferric Sodium Gluconate Complex 125 mg/Sodium Chloride 110 ml @ 110 mls/hr DAILY@1300 IVPB Last administered on 06/23/18 12:44; Admin Dose 110 MLS/HR; Start 06/23/18 at 13:00; Stop 06/27/18 at 13:59 LAURA JOSHI NP June 23, 2018 15:11
--- NOTE | 2018-06-23 15:37 | CONS ---
Assessment/Plan Assessment/Plan Hospital Course (Demo Recall) Septic as well as hemorrhagic shock-resolved Acute respiratory failure status post intubation and repeat tracheostomy Acute blood loss anemia History of respiratory failure status post decannulation Preserved ejection fraction echocardiogram 05/10/2018 Paroxysmal atrial fibrillation Acute kidney injury Hypertension -Patient with paroxysmal atrial fibrillation, has remained sinus with beta-bl ocker and amiodarone, continue as tolerated -Vent management as per pulmonary -Fluid management and electrolytes as per renal -Antibiotics as per infectious disease -No anticoagulation given recurrent anemia requiring blood transfusions Consultation Date/Type/Reason Admit Date/Time May 06, 2018 at 17:38 Initial Consult Date 05/10/18 Type of Consult Cardiology Requesting Provider: ROLAND GIRON MD Date/Time of Note DATE: 06/23/18 TIME: 15:34 24 HR Interval Summary Free Text/Dictation Denies shortness of breath, palpitations Exam/Review of Systems Vital Signs Vitals Vital Signs Date Temp Pulse Resp B/P (MAP) Pulse Ox O2 O2 Flow FiO2 Time Delivery Rate 06/23/18 76 21 100 30 13:08 06/23/18 98.0 118/67 12:41 (84) 06/21/18 Trach 15:34 Collar Intake and Output 06/22/18 06/22/18 06/23/18 1414:59 22:59 06:59 IntakeIntake Total 640 ml 780 ml OutputOutput Total 700 ml 950 ml BalanceBalance -60 ml -170 ml Exam Constitutional: alert (Following commands, no apparent distress) Head: normocephalic Neck: other (Tracheostomy) Respiratory: other (Coarse breath sounds bilaterally, no wheezing) Cardiovascular: regular rate and rhythm (S1-S2 heard) Gastrointestinal: soft, non-tender, bowel sounds Extremities: edema Labs Result Diagram: 06/23/18 0638 06/23/18 0638 Results 24hrs Laboratory Tests Test 06/23/18 06:38 White Blood Count 8.6 Red Blood Count 2.01 L Hemoglobin 6.9 *L Hematocrit 22.3 L Mean Corpuscular Volume 110.9 H Mean Corpuscular Hemoglobin 34.3 H Mean Corpuscular Hemoglobin Concent 30.9 L Red Cell Distribution Width 24.1 H Platelet Count 341 Mean Platelet Volume 9.8 Immature Granulocytes % 0.300 Neutrophils % 77.7 H Segmented Neutrophils % (Manual) 77 Band Neutrophils % (Manual) 5 H Lymphocytes % 10.0 L Lymphocytes % (Manual) 7 L Reactive Lymphocytes % (Manual) 2 H Monocytes % 7.5 Monocytes % (Manual) 5 Eosinophils % 4.3 Eosinophils % (Manual) 4 Basophils % 0.2 Nucleated Red Blood Cells % 0.0 Immature Granulocytes # 0.030 Neutrophils # 6.7 Neutrophils # (Manual) 6.7 Band Neutrophils # 0.4 Lymphocytes (Manual) 0.6 L Lymphocytes # 0.9 Reactive Lymphocytes # 0.1 H Monocytes # 0.6 Monocytes # (Manual) 0.4 Eosinophils # 0.4 Basophils # 0.0 Nucleated Red Blood Cells # 0.0 Pathologist Review (Hematology) YES Platelet Estimate NORMAL Polychromasia 3+ Anisocytosis 2+ Microcytosis 1+ Macrocytosis 1+ Spherocytes 1+ Sodium Level 133 L Potassium Level 3.8 Chloride Level 99 Carbon Dioxide Level 24 Anion Gap 10 Blood Urea Nitrogen 57 H Creatinine 1.52 H Est Glomerular Filtrat Rate mL/min Glucose Level 95 Calcium Level 9.0 Phosphorus Level 4.0 Magnesium Level 1.4 L Medications Medications Current Medications IV Flush (NS 10 ml) 10 ml PRN IV ; Start 05/06/18 at 20:30 Ascorbic Acid (Vitamin C) 500 mg DAILY GTB Last administered on 06/23/18 09:59; Admin Dose 500 MG; Start 05/07/18 at 09:00 Albuterol/ Ipratropium (Duoneb) 3 ml Q2H RESP THERAPY PRN HHN SHORTNESS OF BREATH Last administered on 06/22/18 11:03; Admin Dose 3 ML; Start 05/06/18 at 23:30 Zinc Sulfate (Zinc Sulfate) 220 mg DAILY GTB Last administered on 06/23/18 09:59; Admin Dose 220 MG; Start 05/07/18 at 09:00 Ondansetron HCl (Zofran Tab) 4 mg Q6H PRN GTB NAUSEA AND/OR VOMITING Last administered on 05/31/18 16:47; Admin Dose 4 MG; Start 05/07/18 at 00:15 Multivitamins (Multivitamin) 30 ml DAILY GTB Last administered on 06/23/18 09:59; Admin Dose 30 ML; Start 05/07/18 at 09:00 Miscellaneous Information (Pending Santyl Order For Wound Care) This patient goldman... PRN PRN XX WOUND CARE; Start 05/09/18 at 17:00 Spironolactone (Aldactone) 50 mg DAILY GTB Last administered on 06/23/18 09:59; Admin Dose 50 MG; Start 05/21/18 at 09:00 Famotidine (Pepcid) 20 mg DAILY PEG Last administered on 06/23/18 09:59; Admin Dose 20 MG; Start 05/23/18 at 09:00 Morphine Sulfate (morphine) 6 mg Q4H PRN PEG SEVERE PAIN LEVEL 7-10 Last administered on 06/23/18 12:44; Admin Dose 6 MG; Start 05/22/18 at 17:00 Albumin Human 100 ml @ 100 mls/hr DURING DIALYSIS PRN IV hypotension on hd Last administered on 05/29/18 14:49; Admin Dose 100 MLS/HR; Start 05/27/18 at 07:30 Cholestyramine Resin (Questran Light) 4 gm 0600,1200,1800,2300 PO Last administered on 06/23/18 12:30; Admin Dose 4 GM; Start 05/27/18 at 18:00 Lorazepam (Ativan) 0.5 mg Q4H PRN IV ANXIETY Last administered on 06/22/18 18:11; Admin Dose 0.5 MG; Start 05/30/18 at 12:00 Acetaminophen (Tylenol Tab) 650 mg Q4H PRN PO MILD PAIN(1-3)OR ELEVATED TEMP Last administered on 06/10/18 21:44; Admin Dose 650 MG; Start 05/31/18 at 13:00 Metoclopramide HCl (Reglan) 5 mg Q6 IV Last administered on 06/23/18 12:30; Admin Dose 5 MG; Start 05/31/18 at 13:00 Collagenase (Santyl) 1 applic DAILY TOP Last administered on 06/23/18 09:59; Admin Dose 1 APPLIC; Start 06/01/18 at 09:00 Clonidine (Catapres) 0.1 mg Q6H PRN PO ELEVATED BLOOD PRESSURE Last administered on 06/17/18 05:59; Admin Dose 0.1 MG; Start 06/03/18 at 03:30 Metoprolol Tartrate (Lopressor) 75 mg Q8 GTB Last administered on 06/22/18 05:23; Admin Dose 75 MG; Start 06/08/18 at 14:00 Bumetanide (Bumex) 1 mg BID DIURETICS GTB Last administered on 06/23/18 05:12; Admin Dose 1 MG; Start 06/11/18 at 18:00 Amiodarone HCl (Cordarone) 200 mg Q12 PO Last administered on 06/23/18 09:59; Admin Dose 200 MG; Start 06/12/18 at 21:00 Collagenase (Santyl) 1 applic PRN PRN TOP WHEN SOILED; Start 06/13/18 at 01:00 Nystatin (Nystatin Powder) 1 applic BID TOP Last administered on 06/23/18 09:59; Admin Dose 1 APPLIC; Start 06/13/18 at 14:00 Vancomycin HCl (Vancomycin Oral Syringe) 250 mg DAILY GTB Last administered on 06/23/18 10:07; Admin Dose 250 MG; Start 06/22/18 at 09:00; Stop 06/29/18 at 08:59 Vancomycin HCl (Vancomycin Oral Syringe) 250 mg Q48H GTB ; Start 06/29/18 at 14:00; Stop 07/06/18 at 13:59 Epoetin Zen-epbx (RETACRIT(esrd)) 20,000 unit Tu@1700 SC Last administered on 06/16/18 20:13; Admin Dose 20,000 UNIT; Start 06/16/18 at 18:30 Amlodipine Besylate (Norvasc) 5 mg DAILY PO Last administered on 06/23/18 09:59; Admin Dose 5 MG; Start 06/17/18 at 11:30 Miscellaneous Information (*Order Clarification Bulletin) MEDICATION REQUIRES CLARIFICATION:PLE... Q8H XX Last administered on 06/22/18 23:27; Admin Dose 1 EA; Start 06/20/18 at 09:30 Ferric Sodium Gluconate Complex 125 mg/Sodium Chloride 110 ml @ 110 mls/hr DAILY@1300 IVPB Last administered on 06/23/18 12:44; Admin Dose 110 MLS/HR; Start 06/23/18 at 13:00; Stop 06/27/18 at 13:59 Evangelista Scanlon DO June 23, 2018 15:37
--- NOTE | 2018-06-23 16:14 | CONS ---
Assessment/Plan Assessment/Plan Hospital Course (Demo Recall) I personally examined the patient today along with JADE Villareal. EMR reviewed. Care coordinated and directed. Consultation Date/Type/Reason Admit Date/Time May 06, 2018 at 17:38 Initial Consult Date 05/10/18 Type of Consult ID Requesting Provider: ROLAND GIRON MD Date/Time of Note DATE: 06/23/18 TIME: 16:13 Exam/Review of Systems Exam Vitals Vital Signs Date Temp Pulse Resp B/P (MAP) Pulse Ox O2 O2 Flow FiO2 Time Delivery Rate 06/23/18 76 21 100 30 13:08 06/23/18 98.0 118/67 12:41 (84) 06/21/18 Trach 15:34 Collar Intake and Output 06/22/18 06/22/18 06/23/18 1515:00 23:00 07:00 IntakeIntake Total 640 ml 780 ml OutputOutput Total 700 ml 950 ml BalanceBalance -60 ml -170 ml Results Result Diagram: 06/23/18 0638 06/23/18 0638 Results 24hrs Laboratory Tests Test 06/23/18 06:38 White Blood Count 8.6 Red Blood Count 2.01 L Hemoglobin 6.9 *L Hematocrit 22.3 L Mean Corpuscular Volume 110.9 H Mean Corpuscular Hemoglobin 34.3 H Mean Corpuscular Hemoglobin Concent 30.9 L Red Cell Distribution Width 24.1 H Platelet Count 341 Mean Platelet Volume 9.8 Immature Granulocytes % 0.300 Neutrophils % 77.7 H Segmented Neutrophils % (Manual) 77 Band Neutrophils % (Manual) 5 H Lymphocytes % 10.0 L Lymphocytes % (Manual) 7 L Reactive Lymphocytes % (Manual) 2 H Monocytes % 7.5 Monocytes % (Manual) 5 Eosinophils % 4.3 Eosinophils % (Manual) 4 Basophils % 0.2 Nucleated Red Blood Cells % 0.0 Immature Granulocytes # 0.030 Neutrophils # 6.7 Neutrophils # (Manual) 6.7 Band Neutrophils # 0.4 Lymphocytes (Manual) 0.6 L Lymphocytes # 0.9 Reactive Lymphocytes # 0.1 H Monocytes # 0.6 Monocytes # (Manual) 0.4 Eosinophils # 0.4 Basophils # 0.0 Nucleated Red Blood Cells # 0.0 Pathologist Review (Hematology) YES Platelet Estimate NORMAL Polychromasia 3+ Anisocytosis 2+ Microcytosis 1+ Macrocytosis 1+ Spherocytes 1+ Sodium Level 133 L Potassium Level 3.8 Chloride Level 99 Carbon Dioxide Level 24 Anion Gap 10 Blood Urea Nitrogen 57 H Creatinine 1.52 H Est Glomerular Filtrat Rate mL/min Glucose Level 95 Calcium Level 9.0 Phosphorus Level 4.0 Magnesium Level 1.4 L Medications Medication Current Medications IV Flush (NS 10 ml) 10 ml PRN IV ; Start 05/06/18 at 20:30 Ascorbic Acid (Vitamin C) 500 mg DAILY GTB Last administered on 06/23/18 09:59; Admin Dose 500 MG; Start 05/07/18 at 09:00 Albuterol/ Ipratropium (Duoneb) 3 ml Q2H RESP THERAPY PRN HHN SHORTNESS OF BREATH Last administered on 06/22/18 11:03; Admin Dose 3 ML; Start 05/06/18 at 23:30 Zinc Sulfate (Zinc Sulfate) 220 mg DAILY GTB Last administered on 06/23/18 09:59; Admin Dose 220 MG; Start 05/07/18 at 09:00 Ondansetron HCl (Zofran Tab) 4 mg Q6H PRN GTB NAUSEA AND/OR VOMITING Last administered on 05/31/18 16:47; Admin Dose 4 MG; Start 05/07/18 at 00:15 Multivitamins (Multivitamin) 30 ml DAILY GTB Last administered on 06/23/18 09:59; Admin Dose 30 ML; Start 05/07/18 at 09:00 Miscellaneous [facility] This patient goldman... PRN PRN XX WOUND CARE; Start 05/09/18 at 17:00 Spironolactone (Aldactone) 50 mg DAILY GTB Last administered on 06/23/18 09:59; Admin Dose 50 MG; Start 05/21/18 at 09:00 Famotidine (Pepcid) 20 mg DAILY PEG Last administered on 06/23/18 09:59; Admin Dose 20 MG; Start 05/23/18 at 09:00 Morphine Sulfate (morphine) 6 mg Q4H PRN PEG SEVERE PAIN LEVEL 7-10 Last administered on 06/23/18 12:44; Admin Dose 6 MG; Start 05/22/18 at 17:00 Albumin Human 100 ml @ 100 mls/hr DURING DIALYSIS PRN IV hypotension on hd Last administered on 05/29/18 14:49; Admin Dose 100 MLS/HR; Start 05/27/18 at 07:30 Cholestyramine Resin (Questran Light) 4 gm 0600,1200,1800,2300 PO Last administered on 06/23/18 12:30; Admin Dose 4 GM; Start 05/27/18 at 18:00 Lorazepam (Ativan) 0.5 mg Q4H PRN IV ANXIETY Last administered on 06/22/18 18:1 1; Admin Dose 0.5 MG; Start 05/30/18 at 12:00 Acetaminophen (Tylenol Tab) 650 mg Q4H PRN PO MILD PAIN(1-3)OR ELEVATED TEMP Last administered on 06/10/18 21:44; Admin Dose 650 MG; Start 05/31/18 at 13:00 Metoclopramide HCl (Reglan) 5 mg Q6 IV Last administered on 06/23/18 12:30; Admin Dose 5 MG; Start 05/31/18 at 13:00 Collagenase (Santyl) 1 applic DAILY TOP Last administered on 06/23/18 09:59; Admin Dose 1 APPLIC; Start 06/01/18 at 09:00 Clonidine (Catapres) 0.1 mg Q6H PRN PO ELEVATED BLOOD PRESSURE Last administered on 06/17/18 05:59; Admin Dose 0.1 MG; Start 06/03/18 at 03:30 Metoprolol Tartrate (Lopressor) 75 mg Q8 GTB Last administered on 06/22/18 05:23; Admin Dose 75 MG; Start 06/08/18 at 14:00 Bumetanide (Bumex) 1 mg BID DIURETICS GTB Last administered on 06/23/18 05:12; Admin Dose 1 MG; Start 06/11/18 at 18:00 Amiodarone HCl (Cordarone) 200 mg Q12 PO Last administered on 06/23/18 09:59; Admin Dose 200 MG; Start 06/12/18 at 21:00 Collagenase (Santyl) 1 applic PRN PRN TOP WHEN SOILED; Start 06/13/18 at 01:00 Nystatin (Nystatin Powder) 1 applic BID TOP Last administered on 06/23/18 09:59; Admin Dose 1 APPLIC; Start 06/13/18 at 14:00 Vancomycin HCl (Vancomycin Oral Syringe) 250 mg DAILY GTB Last administered on 06/23/18at 10:07; Admin Dose 250 MG; Start 06/22/18 at 09:00; Stop 06/29/18 at 08:59 Vancomycin HCl (Vancomycin Oral Syringe) 250 mg Q48H GTB ; Start 06/29/18 at 14:00; Stop 07/06/18 at 13:59 Epoetin Zen-epbx (RETACRIT(esrd)) 20,000 unit Tu@1700 SC Last administered on 06/16/18at 20:13; Admin Dose 20,000 UNIT; Start 06/16/18 at 18:30 Amlodipine Besylate (Norvasc) 5 mg DAILY PO Last administered on 06/23/18 09:59; Admin Dose 5 MG; Start 06/17/18 at 11:30 Miscellaneous Information (*Order Clarification Bulletin) MEDICATION REQUIRES CLARIFICATION:PLE... Q8H XX Last administered on 06/22/18at 23:27; Admin Dose 1 EA; Start 06/20/18 at 09:30 Ferric Sodium Gluconate Complex 125 mg/Sodium Chloride 110 ml @ 110 mls/hr DAILY@1300 IVPB Last administered on 06/23/18 12:44; Admin Dose 110 MLS/HR; Start 06/23/18 at 13:00; Stop 06/27/18 at 13:59 MANN VALDEZ MD June 23, 2018 16:13
[2018-06-23] MEDS ORDERED: SOD CHLORIDE 0.9% 250 ML IV* ONE (16:58)
[2018-06-23] MEDS ORDERED: EPOETIN ALFA-EPBX (ESRD) 10,000 UNIT/ML VIAL SC SCH (17:00)
[2018-06-23] MEDS: EPOETIN ALFA-EPBX (ESRD) 10,000 UNIT/ML VIAL SC SCH (17:41)
--- NOTE | 2018-06-23 18:27 | CONS ---
Assessment/Plan Assessment/Plan Assessment/Plan (Daily) Assessment/Plan Assessment/Plan (Daily) 1. ABD pain -CT of abd 2. Renal failure.- on HD 3. Vent dependent resp failure 4. Chronic obstructive pulmonary disease. 5. Bipolar. 6. Paroxysmal atrial fibrillation. 7. Anemia of chronic disease. 8. CHF 9. Diarrhea 11. Diarrhea -s/p c diff colitis -taper off of vanco 12. H/O deep esophageal ulcer 13. Dysphagia with g tube 14. Anemia of chronic disease 15. UTI with positive cx 16. Macrocytosis CT of abd/pelvis 06/16 1. Nonspecific bibasilar ground-glass densities and the airspace disease, suggesting bilateral pneumonia versus pulmonary edema. 2. Atrophy of the left kidney. 2.3 cm left renal cyst. The right kidney demonstrates compensatory hypertrophy. No calculus or hydronephrosis in either kidney. 3. Atherosclerosis of the aorta. 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 No leak or rupture. 4. Mild nonspecific ascites in the pelvis. 5. Air-fluid levels are seen throughout the small bowel and colon. Consider mild ileus versus enterocolitis. Patient has good bowel movement and there is no evidence of emesis or nausea PLAN: Ok to resume tube feeds Continue with reglan and pepcid Taper vanco to off Monitor tube feeds residuals q 6 hours Monitor hemoglobin hematocrit, there is a significant drop in her hematocrit, no evidence of active bleeding Will send for B12 and folic acid level, both were within normal limit Repeat stool for C. difficile toxins Consultation Date/Type/Reason Admit Date/Time May 06, 2018 at 17:38 Initial Consult Date 05/10/18 Requesting Provider: ROLAND GIRON MD Date/Time of Note DATE: 06/23/18 TIME: 18:26 24 HR Interval Summary Constitutional: improved Exam/Review of Systems Exam Vitals Vital Signs Date Temp Pulse Resp B/P (MAP) Pulse Ox O2 O2 Flow FiO2 Time Delivery Rate 06/23/18 74 22 100 30 17:56 06/23/18 98.0 126/62 16:42 (83) 06/21/18 Trach 15:34 Collar Intake and Output 06/22/18 06/22/18 06/23/18 1414:59 22:59 06:59 IntakeIntake Total 640 ml 780 ml OutputOutput Total 700 ml 950 ml BalanceBalance -60 ml -170 ml Constitutional: alert, oriented, well developed Psych: no complaints, nl mood/affect Head: normocephalic, atraumatic Eyes: nl conjunctiva, EOMI, nl lids, nl sclera, PERRL ENMT: nl external ears & nose, nl lips & teeth, nl nasal mucosa & septum Neck: supple, non-tender Respiratory: clear to auscultation, normal air movement Cardiovascular: regular rate and rhythm, nl pulses Gastrointestinal: soft, nl liver, spleen, non-tender Musculoskeletal: nl extremities to inspection, nl gait and stance Extremities: normal pulses Neurological: [employer] II-XII intact, nl mental status, nl speech, nl strength Skin: nl turgor; No rash or lesions Lymph: nl lymph nodes Results Result Diagram: 06/23/1838 06/23/18 0638 Results 24hrs Laboratory Tests Test 06/23/18 06:38 White Blood Count 8.6 Red Blood Count 2.01 L Hemoglobin 6.9 *L Hematocrit 22.3 L Mean Corpuscular Volume 110.9 H Mean Corpuscular Hemoglobin 34.3 H Mean Corpuscular Hemoglobin Concent 30.9 L Red Cell Distribution Width 24.1 H Platelet Count 341 Mean Platelet Volume 9.8 Immature Granulocytes % 0.300 Neutrophils % 77.7 H Segmented Neutrophils % (Manual) 77 Band Neutrophils % (Manual) 5 H Lymphocytes % 10.0 L Lymphocytes % (Manual) 7 L Reactive Lymphocytes % (Manual) 2 H Monocytes % 7.5 Monocytes % (Manual) 5 Eosinophils % 4.3 Eosinophils % (Manual) 4 Basophils % 0.2 Nucleated Red Blood Cells % 0.0 Immature Granulocytes # 0.030 Neutrophils # 6.7 Neutrophils # (Manual) 6.7 Band Neutrophils # 0.4 Lymphocytes (Manual) 0.6 L Lymphocytes # 0.9 Reactive Lymphocytes # 0.1 H Monocytes # 0.6 Monocytes # (Manual) 0.4 Eosinophils # 0.4 Basophils # 0.0 Nucleated Red Blood Cells # 0.0 Pathologist Review (Hematology) YES Platelet Estimate NORMAL Polychromasia 3+ Anisocytosis 2+ Microcytosis 1+ Macrocytosis 1+ Spherocytes 1+ Sodium Level 133 L Potassium Level 3.8 Chloride Level 99 Carbon Dioxide Level 24 Anion Gap 10 Blood Urea Nitrogen 57 H Creatinine 1.52 H Est Glomerular Filtrat Rate mL/min Glucose Level 95 Calcium Level 9.0 Phosphorus Level 4.0 Magnesium Level 1.4 L Medications Medication Current Medications IV Flush (NS 10 ml) 10 ml PRN IV ; Start 05/06/18 at 20:30 Ascorbic Acid (Vitamin C) 500 mg DAILY GTB Last administered on 06/23/18 09:59; Admin Dose 500 MG; Start 05/07/18 at 09:00 Albuterol/ Ipratropium (Duoneb) 3 ml Q2H RESP THERAPY PRN HHN SHORTNESS OF BREATH Last administered on 06/22/18 11:03; Admin Dose 3 ML; Start 05/06/18 at 23:30 Zinc Sulfate (Zinc Sulfate) 220 mg DAILY GTB Last administered on 06/23/18 09:59; Admin Dose 220 MG; Start 05/07/18 at 09:00 Ondansetron HCl (Zofran Tab) 4 mg Q6H PRN GTB NAUSEA AND/OR VOMITING Last administered on 05/31/18 16:47; Admin Dose 4 MG; Start 05/07/18 at 00:15 Multivitamins (Multivitamin) 30 ml DAILY GTB Last administered on 06/23/18 09:59; Admin Dose 30 ML; Start 05/07/18 at 09:00 Miscellaneous Information (Pending [facility] Order For Wound Care) This patient goldman... PRN PRN XX WOUND CARE; Start 05/09/18 at 17:00 Spironolactone (Aldactone) 50 mg DAILY GTB Last administered on 06/23/18 09:59; Admin Dose 50 MG; Start 05/21/18 at 09:00 Famotidine (Pepcid) 20 mg DAILY PEG Last administered on 06/23/18 09:59; Admin Dose 20 MG; Start 05/23/18 at 09:00 Morphine Sulfate (morphine) 6 mg Q4H PRN PEG SEVERE PAIN LEVEL 7-10 Last administered on 06/23/18 17:40; Admin Dose 6 MG; Start 05/22/18 at 17:00 Albumin Human 100 ml @ 100 mls/hr DURING DIALYSIS PRN IV hypotension on hd Last administered on 05/29/18 14:49; Admin Dose 100 MLS/HR; Start 05/27/18 at 07:30 Cholestyramine Resin (Questran Light) 4 gm 0600,1200,1800,2300 PO Last administered on 06/23/18 17:15; Admin Dose 4 GM; Start 05/27/18 at 18:00 Lorazepam (Ativan) 0.5 mg Q4H PRN IV ANXIETY Last administered on 06/22/18 18:11; Admin Dose 0.5 MG; Start 05/30/18 at 12:00 Acetaminophen (Tylenol Tab) 650 mg Q4H PRN PO MILD PAIN(1-3)OR ELEVATED TEMP L ast administered on 06/10/18 21:44; Admin Dose 650 MG; Start 05/31/18 at 13:00 Metoclopramide HCl (Reglan) 5 mg Q6 IV Last administered on 06/23/18 17:15; Admin Dose 5 MG; Start 05/31/18 at 13:00 Collagenase (Santyl) 1 applic DAILY TOP Last administered on 06/23/18 09:59; Admin Dose 1 APPLIC; Start 06/01/18 at 09:00 Clonidine (Catapres) 0.1 mg Q6H PRN PO ELEVATED BLOOD PRESSURE Last administer ed on 06/17/18 05:59; Admin Dose 0.1 MG; Start 06/03/18 at 03:30 Metoprolol Tartrate (Lopressor) 75 mg Q8 GTB Last administered on 06/22/18 05:23; Admin Dose 75 MG; Start 06/08/18 at 14:00 Bumetanide (Bumex) 1 mg BID DIURETICS GTB Last administered on 06/23/18 17:15; Admin Dose 1 MG; Start 06/11/18 at 18:00 Amiodarone HCl (Cordarone) 200 mg Q12 PO Last administered on 06/23/18 09:59; Admin Dose 200 MG; Start 06/12/18 at 21:00 Collagenase (Santyl) 1 applic PRN PRN TOP WHEN SOILED; Start 06/13/18 at 01:00 Nystatin (Nystatin Powder) 1 applic BID TOP Last administered on 06/23/18 09:59; Admin Dose 1 APPLIC; Start 06/13/18 at 14:00 Vancomycin HCl (Vancomycin Oral Syringe) 250 mg DAILY GTB Last administered on 06/23/18 10:07; Admin Dose 250 MG; Start 06/22/18 at 09:00; Stop 06/29/18 at 08: 59 Vancomycin HCl (Vancomycin Oral Syringe) 250 mg Q48H GTB ; Start 06/29/18 at 14:00; Stop 07/06/18 at 13:59 Epoetin Zen-epbx (RETACRIT(esrd)) 20,000 unit Tu@1700 SC Last administered on 06/23/18at 17:41; Admin Dose 20,000 UNIT; Start 06/16/18 at 18:30 Amlodipine Besylate (Norvasc) 5 mg DAILY PO Last administered on 06/23/18 09:59; Admin Dose 5 MG; Start 06/17/18 at 11:30 Miscellaneous Information (*Order Clarification Bulletin) MEDICATION REQUIRES CLARIFICATION:PLE... Q8H XX Last administered on 06/22/18at 23:27; Admin Dose 1 EA; Start 06/20/18 at 09:30 Ferric Sodium Gluconate Complex 125 mg/Sodium Chloride 110 ml @ 110 mls/hr DAILY@1300 IVPB Last administered on 06/23/18at 12:44; Admin Dose 110 MLS/HR; Start 06/23/18 at 13:00; Stop 06/27/18 at 13:59 QUINTEN UMAÑA MD June 23, 2018 18:27
--- NOTE | 2018-06-23 19:36 | PN ---
Date/Time of Note Date/Time of Note DATE: 06/23/18 TIME: 19:35 Assessment/Plan VTE Prophylaxis Risk score (from [facility])>0 risk: 9 SCD applied (from [facility]): Yes Pharmacological prophylaxis: NA/contraindicated Pharm contraindication: other Lines/Catheters IV Catheter Type (from [facility]): PICC Line Central line still needed: Yes Urinary Cath still in place: Yes Reason Cath still needed: urinary retention Assessment/Plan Hospital Course Hemoglobin of 6.9 will transfuse 1 unit of packed red blood cells, patient is awake alert continues on ventilatory support resolved distress. Assessment/Plan -MDR Klebsiella urinary tract infection, completed treatment with amikacin. Dr. Walton is following in infectious consultation. -Atrial fibrillation was rapid ventricular response, patient remains in sinus rhythm continue metoprolol and amiodarone. Dr. Scanlon is following in cardiology consultation. -S/p septic shock secondary to urinary tract infection, anterior neck soft tissue infection, and C. difficile colitis. -C-diff colitis, continue G-tube Vanco at the taper doses, -Acute respiratory failure requiring intubation and ventilatory support. Dr. Lambert is following in pulmonology consultation. -S/p tracheostomy on 05/29/18. -Acute kidney injury on chronic kidney disease. Started on HD this admission. Dr. Mckeon is following in nephrology consultation. -Anemia of chronic inflammation, stool for OB is negative, status post blood transfusion. Continue Epogen. -Metabolic acidosis, resolved. -Acute diastolic congestive heart failure. -Paroxysmal atrial fibrillation -COPD -Dysphagia with PEG. -G-tube mild malfunction, changed by GI Dr. Carolina is following in gastroen terology consultation. -Obesity Further recommendations based on clinical course. Plan of care discussed with Dr. Eisenberg. Result Diagram: 06/23/18 0638 06/23/18 0638 Results 24hrs Laboratory Tests Test 06/23/18 06:38 White Blood Count 8.6 Red Blood Count 2.01 L Hemoglobin 6.9 *L Hematocrit 22.3 L Mean Corpuscular Volume 110.9 H Mean Corpuscular Hemoglobin 34.3 H Mean Corpuscular Hemoglobin Concent 30.9 L Red Cell Distribution Width 24.1 H Platelet Count 341 Mean Platelet Volume 9.8 Immature Granulocytes % 0.300 Neutrophils % 77.7 H Segmented Neutrophils % (Manual) 77 Band Neutrophils % (Manual) 5 H Lymphocytes % 10.0 L Lymphocytes % (Manual) 7 L Reactive Lymphocytes % (Manual) 2 H Monocytes % 7.5 Monocytes % (Manual) 5 Eosinophils % 4.3 Eosinophils % (Manual) 4 Basophils % 0.2 Nucleated Red Blood Cells % 0.0 Immature Granulocytes # 0.030 Neutrophils # 6.7 Neutrophils # (Manual) 6.7 Band Neutrophils # 0.4 Lymphocytes (Manual) 0.6 L Lymphocytes # 0.9 Reactive Lymphocytes # 0.1 H Monocytes # 0.6 Monocytes # (Manual) 0.4 Eosinophils # 0.4 Basophils # 0.0 Nucleated Red Blood Cells # 0.0 Pathologist Review (Hematology) YES Platelet Estimate NORMAL Polychromasia 3+ Anisocytosis 2+ Microcytosis 1+ Macrocytosis 1+ Spherocytes 1+ Sodium Level 133 L Potassium Level 3.8 Chloride Level 99 Carbon Dioxide Level 24 Anion Gap 10 Blood Urea Nitrogen 57 H Creatinine 1.52 H Est Glomerular Filtrat Rate mL/min Glucose Level 95 Calcium Level 9.0 Phosphorus Level 4.0 Magnesium Level 1.4 L Exam/Review of Systems Exam Vitals Vital Signs Date Temp Pulse Resp B/P (MAP) Pulse Ox O2 O2 Flow FiO2 Time Delivery Rate 06/23/18 74 22 100 30 17:56 06/23/18 98.0 126/62 16:42 (83) 06/21/18 Trach 15:34 Collar Intake and Output 06/22/18 06/22/18 06/23/18 1515:00 23:00 07:00 IntakeIntake Total 640 ml 780 ml OutputOutput Total 700 ml 950 ml BalanceBalance -60 ml -170 ml Exam Constitutional: alert, oriented Neck: other (Tracheostomy) Respiratory: diminished breath sounds Cardiovascular: regular rate and rhythm Gastrointestinal: soft, non-tender, other (G-tube) Extremities: normal pulses Neurological: nl mental status Results Results 24hrs Laboratory Tests Test 06/23/18 06:38 White Blood Count 8.6 Red Blood Count 2.01 L Hemoglobin 6.9 *L Hematocrit 22.3 L Mean Corpuscular Volume 110.9 H Mean Corpuscular Hemoglobin 34.3 H Mean Corpuscular Hemoglobin Concent 30.9 L Red Cell Distribution Width 24.1 H Platelet Count 341 Mean Platelet Volume 9.8 Immature Granulocytes % 0.300 Neutrophils % 77.7 H Segmented Neutrophils % (Manual) 77 Band Neutrophils % (Manual) 5 H Lymphocytes % 10.0 L Lymphocytes % (Manual) 7 L Reactive Lymphocytes % (Manual) 2 H Monocytes % 7.5 Monocytes % (Manual) 5 Eosinophils % 4.3 Eosinophils % (Manual) 4 Basophils % 0.2 Nucleated Red Blood Cells % 0.0 Immature Granulocytes # 0.030 Neutrophils # 6.7 Neutrophils # (Manual) 6.7 Band Neutrophils # 0.4 Lymphocytes (Manual) 0.6 L Lymphocytes # 0.9 Reactive Lymphocytes # 0.1 H Monocytes # 0.6 Monocytes # (Manual) 0.4 Eosinophils # 0.4 Basophils # 0.0 Nucleated Red Blood Cells # 0.0 Pathologist Review (Hematology) YES Platelet Estimate NORMAL Polychromasia 3+ Anisocytosis 2+ Microcytosis 1+ Macrocytosis 1+ Spherocytes 1+ Sodium Level 133 L Potassium Level 3.8 Chloride Level 99 Carbon Dioxide Level 24 Anion Gap 10 Blood Urea Nitrogen 57 H Creatinine 1.52 H Est Glomerular Filtrat Rate mL/min Glucose Level 95 Calcium Level 9.0 Phosphorus Level 4.0 Magnesium Level 1.4 L Medications Medication Current Medications IV Flush (NS 10 ml) 10 ml PRN IV ; Start 05/06/18 at 20:30 Ascorbic Acid (Vitamin C) 500 mg DAILY GTB Last administered on 06/23/18 09:59; Admin Dose 500 MG; Start 05/07/18 at 09:00 Albuterol/ Ipratropium (Duoneb) 3 ml Q2H RESP THERAPY PRN HHN SHORTNESS OF BREATH Last administered on 06/22/18 11:03; Admin Dose 3 ML; Start 05/06/18 at 23:30 Zinc Sulfate (Zinc Sulfate) 220 mg DAILY GTB Last administered on 06/23/18 09:59; Admin Dose 220 MG; Start 05/07/18 at 09:00 Ondansetron HCl (Zofran Tab) 4 mg Q6H PRN GTB NAUSEA AND/OR VOMITING Last administered on 05/31/18 16:47; Admin Dose 4 MG; Start 05/07/18 at 00:15 Multivitamins (Multivitamin) 30 ml DAILY GTB Last administered on 06/23/18 09:59; Admin Dose 30 ML; Start 05/07/18 at 09:00 Miscellaneous Information (Pending [facility] Order For Wound Care) This patient goldman... PRN PRN XX WOUND CARE; Start 05/09/18 at 17:00 Spironolactone (Aldactone) 50 mg DAILY GTB Last administered on 06/23/18 09:59; Admin Dose 50 MG; Start 05/21/18 at 09:00 Famotidine (Pepcid) 20 mg DAILY PEG Last administered on 06/23/18 09:59; Admin Dose 20 MG; Start 05/23/18 at 09:00 Morphine Sulfate (morphine) 6 mg Q4H PRN PEG SEVERE PAIN LEVEL 7-10 Last administered on 06/23/18 17:40; Admin Dose 6 MG; Start 05/22/18 at 17:00 Albumin Human 100 ml @ 100 mls/hr DURING DIALYSIS PRN IV hypotension on hd Last administered on 05/29/18 14:49; Admin Dose 100 MLS/HR; Start 05/27/18 at 07:30 Cholestyramine Resin (Questran Light) 4 gm 0600,1200,1800,2300 PO Last administered on 06/23/18 17:15; Admin Dose 4 GM; Start 05/27/18 at 18:00 Lorazepam (Ativan) 0.5 mg Q4H PRN IV ANXIETY Last administered on 06/22/18 18:11; Admin Dose 0.5 MG; Start 05/30/18 at 12:00 Acetaminophen (Tylenol Tab) 650 mg Q4H PRN PO MILD PAIN(1-3)OR ELEVATED TEMP Last administered on 06/10/18 21:44; Admin Dose 650 MG; Start 05/31/18 at 13:00 Metoclopramide HCl (Reglan) 5 mg Q6 IV Last administered on 06/23/18 17:15; Admin Dose 5 MG; Start 05/31/18 at 13:00 Collagenase (Santyl) 1 applic DAILY TOP Last administered on 06/23/18 09:59; Admin Dose 1 APPLIC; Start 06/01/18 at 09:00 Clonidine (Catapres) 0.1 mg Q6H PRN PO ELEVATED BLOOD PRESSURE Last administered on 06/17/18 05:59; Admin Dose 0.1 MG; Start 06/03/18 at 03:30 Metoprolol Tartrate (Lopressor) 75 mg Q8 GTB Last administered on 06/22/18 05:23; Admin Dose 75 MG; Start 06/08/18 at 14:00 Bumetanide (Bumex) 1 mg BID DIURETICS GTB Last administered on 06/23/18 17:15; Admin Dose 1 MG; Start 06/11/18 at 18:00 Amiodarone HCl (Cordarone) 200 mg Q12 PO Last administered on 06/23/18 09:59; Admin Dose 200 MG; Start 06/12/18 at 21:00 Collagenase (Santyl) 1 applic PRN PRN TOP WHEN SOILED; Start 06/13/18 at 01:00 Nystatin (Nystatin Powder) 1 applic BID TOP Last administered on 06/23/18 09:59; Admin Dose 1 APPLIC; Start 06/13/18 at 14:00 Vancomycin HCl (Vancomycin Oral Syringe) 250 mg DAILY GTB Last administered on 06/23/18 10:07; Admin Dose 250 MG; Start 06/22/18 at 09:00; Stop 06/29/18 at 08:59 Vancomycin HCl (Vancomycin Oral Syringe) 250 mg Q48H GTB ; Start 06/29/18 at 14:00; Stop 07/06/18 at 13:59 Epoetin Zen-epbx (RETACRIT(esrd)) 20,000 unit Tu@1700 SC Last administered on 06/23/18 17:41; Admin Dose 20,000 UNIT; Start 06/16/18 at 18:30 Amlodipine Besylate (Norvasc) 5 mg DAILY PO Last administered on 06/23/18 09:59; Admin Dose 5 MG; Start 06/17/18 at 11:30 Miscellaneous Information (*Order Clarification Bulletin) MEDICATION REQUIRES CLARIFICATION:PLE... Q8H XX Last administered on 06/22/18 23:27; Admin Dose 1 EA; Start 06/20/18 at 09:30 Ferric Sodium Gluconate Complex 125 mg/Sodium Chloride 110 ml @ 110 mls/hr DAILY@1300 IVPB Last administered on 06/23/18 12:44; Admin Dose 110 MLS/HR; Start 06/23/18 at 13:00; Stop 06/27/18 at 13:59 GRISELDA DENNIS June 23, 2018 19:36
[2018-06-24] VITALS (24 sets, daily range): BP systolic 97–134; BP diastolic 44–73; PULSE 67–79; RESP 18–30
[2018-06-24] MEDS: BUMETANIDE 1 MG TAB GTB SCH ×2 (05:09→17:03)
[2018-06-24] MEDS: METOPROLOL 25 MG TAB GTB SCH ×2 (05:09→21:44)
[2018-06-24] MEDS: CHOLESTYRAMINE (LIGHT) 4 GM PACKET PO SCH ×4 (05:09→23:25)
[2018-06-24] MEDS: METOCLOPRAMIDE 10 MG INJ IV SCH ×4 (05:09→23:26)
--- NOTE | 2018-06-24 08:27 | PN ---
DATE: 06/24/2018 SUBJECTIVE: The patient is stable, no events overnight. No fevers, chills, nausea, or vomiting. OBJECTIVE: VITAL SIGNS: Blood pressure is 127/65, respirations 25, pulse 77, temperature 98.7. HEENT: Head is normocephalic. NECK: Supple. HEART: Regular rate. LUNGS: Show diminished breath sounds at the base. ABDOMEN: Soft, nontender to palpation without rebound or guarding. EXTREMITIES: Negative for clubbing, cyanosis. Trace edema. DERMATOLOGIC: No rashes. MUSCULOSKELETAL: No joint effusion. NEUROLOGIC: No change in exam. MEDICATIONS: Reviewed. LABORATORY DATA: Reviewed. ASSESSMENT AND PLAN: 1. Nonoliguric acute kidney injury on top of chronic kidney disease stage IIIB/IV with previous base line creatinine of 2.0 mg/dL. Etiology of acute kidney injury is secondary to acute tubular necrosis . The patient is status post hemodialysis. Renal function stabilized. Continue current treatment p lans, supportive care, renally dose all medicines. 2. Volume overload, improving, currently stable. Continue Bumex 1 mg b.i.d. We will add intermitte nt metolazone as needed. 3. Hyponatremia. The patient's free water flushes have been adjusted. We will follow up renal pane l. 4. Metabolic acidosis, resolved. 5. Anemia, etiology is multifactorial secondary to chronic kidney disease and iron deficiency. The patient is currently on IV Ferrlecit. We will continue. We will give intermittent Epogen as needed. 6. Mineral bone disorder, monitor calcium and phosphorus levels. 7. Ventilator-dependent respiratory failure. Vent settings and ABG was reviewed. Continue to monit or. 8. Sepsis, status post shock. The patient is completing antibiotic course. 9. Lower extremity wounds. Continue wound care. 10. Dysphagia. Continue tube feeding. 11. Encephalopathy. Continue to monitor. Dictated By: JEANA BANSAL DO NR/NTS Conf#: [id number] DID#: [id number] CC: ROLAND GIRON MD; QUINTEN UMAÑA MD;*EndCC*
--- NOTE | 2018-06-24 08:51 | CONS ---
Assessment/Plan Assessment/Plan Hospital Course (Demo Recall) 73 yo female Interval hx: Pt does not c/o abd pain, c/o back pain. Diarrhea has stopped, fo rmed brown per RN. No signs of GI bleeding 1. ABD pain -CT of abd 2. Renal failure.- on HD 3. Vent dependent resp failure 4. Chronic obstructive pulmonary disease. 5. Bipolar. 6. Paroxysmal atrial fibrillation. 7. Anemia of chronic disease. 8. CHF 9. Diarrhea 11. Diarrhea -s/p c diff colitis -taper off of vanco 12. H/O deep esophageal ulcer 13. Dysphagia with g tube 14. Anemia of chronic disease 15. UTI with positive cx CT of abd/pelvis 06/16 1. Nonspecific bibasilar ground-glass densities and the airspace disease, suggesting bilateral pneumonia versus pulmonary edema. 2. Atrophy of the left kidney. 2.3 cm left renal cyst. The right kidney demonstrates compensatory hypertrophy. No calculus or hydronephrosis in either kidney. 3. Atherosclerosis of the aorta. 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 No leak or rupture. 4. Mild nonspecific ascites in the pelvis. 5. Air-fluid levels are seen throughout the small bowel and colon. Consider m ild ileus versus enterocolitis. PLAN: Continue with reglan and pepcid Monitor tube feeds residuals q 6 hours Monitor hemoglobin hematocrit, there is a significant drop in her hematocrit, no evidence of active bleeding Pt examined and plan of care discussed with Dr Carolina Consultation Date/Type/Reason Admit Date/Time May 06, 2018 at 17:38 Initial Consult Date 05/10/18 Requesting Provider: ROLAND GIRON MD Date/Time of Note DATE: 06/24/18 TIME: 08:41 Exam/Review of Systems Exam Vitals Vital Signs Date Temp Pulse Resp B/P (MAP) Pulse Ox O2 O2 Flow FiO2 Time Delivery Rate 06/24/18 72 21 98 30 05:04 06/24/18 98.7 127/65 Mechanical 04:34 (85) Ventilator Intake and Output 06/23/18 06/23/18 06/24/18 1515:00 23:00 07:00 IntakeIntake Total 160 ml 500 ml OutputOutput Total 900 ml 650 ml BalanceBalance 160 ml -900 ml -150 ml Constitutional: alert, oriented Psych: no complaints Head: normocephalic Eyes: PERRL Respiratory: diminished breath sounds Cardiovascular: regular rate and rhythm Gastrointestinal: soft, non-tender Neurological: nl mental status Results Result Diagram: 06/24/18 0730 06/24/18 0730 Results 24hrs Laboratory Tests Test 06/24/18 07:30 White Blood Count 8.4 Red Blood Count 2.65 #L Hemoglobin 8.7 #L Hematocrit 27.7 #L Mean Corpuscular Volume 104.5 H Mean Corpuscular Hemoglobin 32.8 Mean Corpuscular Hemoglobin Concent 31.4 L Red Cell Distribution Width 25.1 H Platelet Count 343 Mean Platelet Volume 9.5 Immature Granulocytes % 0.400 Neutrophils % 79.8 H Lymphocytes % 8.6 L Monocytes % 6.9 Eosinophils % 4.2 Basophils % 0.1 Nucleated Red Blood Cells % 0.0 Immature Granulocytes # 0.030 Neutrophils # 6.7 Lymphocytes # 0.7 L Monocytes # 0.6 Eosinophils # 0.4 Basophils # 0.0 Nucleated Red Blood Cells # 0.0 Sodium Level 134 L Potassium Level 3.8 Chloride Level 102 Carbon Dioxide Level 24 Anion Gap 8 Blood Urea Nitrogen 58 H Creatinine 1.46 H Est Glomerular Filtrat Rate mL/min Glucose Level 93 Calcium Level 9.4 Phosphorus Level 4.0 Magnesium Level 1.9 Medications Medication Current Medications IV Flush (NS 10 ml) 10 ml PRN IV ; Start 05/06/18 at 20:30 Ascorbic Acid (Vitamin C) 500 mg DAILY GTB Last administered on 06/23/18 09:59; Admin Dose 500 MG; Start 05/07/18 at 09:00 Albuterol/ Ipratropium (Duoneb) 3 ml Q2H RESP THERAPY PRN HHN SHORTNESS OF BREATH Last administered on 06/22/18at 11:03; Admin Dose 3 ML; Start 05/06/18 at 23:30 Zinc Sulfate (Zinc Sulfate) 220 mg DAILY GTB Last administered on 06/23/18 09:59; Admin Dose 220 MG; Start 05/07/18 at 09:00 Ondansetron HCl (Zofran Tab) 4 mg Q6H PRN GTB NAUSEA AND/OR VOMITING Last ad ministered on 05/31/18at 16:47; Admin Dose 4 MG; Start 05/07/18 at 00:15 Multivitamins (Multivitamin) 30 ml DAILY GTB Last administered on 06/23/18 09:59; Admin Dose 30 ML; Start 05/07/18 at 09:00 Miscellaneous Information (Pending Santyl Order For Wound Care) This patient goldman... PRN PRN XX WOUND CARE; Start 05/09/18 at 17:00 Spironolactone (Aldactone) 50 mg DAILY GTB Last administered on 06/23/18 09:59; Admin Dose 50 MG; Start 05/21/18 at 09:00 Famotidine (Pepcid) 20 mg DAILY PEG Last administered on 06/23/18 09:59; Admin Dose 20 MG; Start 05/23/18 at 09:00 Morphine Sulfate (morphine) 6 mg Q4H PRN PEG SEVERE PAIN LEVEL 7-10 Last administered on 06/23/18 22:44; Admin Dose 6 MG; Start 05/22/18 at 17:00 Albumin Human 100 ml @ 100 mls/hr DURING DIALYSIS PRN IV hypotension on hd Last administered on 05/29/18 14:49; Admin Dose 100 MLS/HR; Start 05/27/18 at 07:30 Cholestyramine Resin (Questran Light) 4 gm 0600,1200,1800,2300 PO Last administered on 06/24/18 05:09; Admin Dose 4 GM; Start 05/27/18 at 18:00 Lorazepam (Ativan) 0.5 mg Q4H PRN IV ANXIETY Last administered on 06/22/18 18:11; Admin Dose 0.5 MG; Start 05/30/18 at 12:00 Acetaminophen (Tylenol Tab) 650 mg Q4H PRN PO MILD PAIN(1-3)OR ELEVATED TEMP Last administered on 06/10/18 21:44; Admin Dose 650 MG; Start 05/31/18 at 13:00 Metoclopramide HCl (Reglan) 5 mg Q6 IV Last administered on 06/24/18 05:09; Admin Dose 5 MG; Start 05/31/18 at 13:00 Collagenase (Santyl) 1 applic DAILY TOP Last administered on 06/23/18 09:59; Ad min Dose 1 APPLIC; Start 06/01/18 at 09:00 Clonidine (Catapres) 0.1 mg Q6H PRN PO ELEVATED BLOOD PRESSURE Last administered on 06/17/18 05:59; Admin Dose 0.1 MG; Start 06/03/18 at 03:30 Metoprolol Tartrate (Lopressor) 75 mg Q8 GTB Last administered on 06/24/18 05:09; Admin Dose 75 MG; Start 06/08/18 at 14:00 Bumetanide (Bumex) 1 mg BID DIURETICS GTB Last administered on 06/24/18 05:09; Admin Dose 1 MG; Start 06/11/18 at 18:00 Amiodarone HCl (Cordarone) 200 mg Q12 PO Last administered on 06/23/18 22:44; Admin Dose 200 MG; Start 06/12/18 at 21:00 Collagenase (Santyl) 1 applic PRN PRN TOP WHEN SOILED; Start 06/13/18 at 01:00 Nystatin (Nystatin Powder) 1 applic BID TOP Last administered on 06/23/18 22:45; Admin Dose 1 APPLIC; Start 06/13/18 at 14:00 Vancomycin HCl (Vancomycin Oral Syringe) 250 mg DAILY GTB Last administered on 06/23/18 10:07; Admin Dose 250 MG; Start 06/22/18 at 09:00; Stop 06/29/18 at 08:59 Vancomycin HCl (Vancomycin Oral Syringe) 250 mg Q48H GTB ; Start 06/29/18 at 14:00; Stop 07/06/18 at 13:59 Epoetin Zen-epbx (RETACRIT(esrd)) 20,000 unit Tu@1700 SC Last administered on 06/23/18 17:41; Admin Dose 20,000 UNIT; Start 06/16/18 at 18:30 Amlodipine Besylate (Norvasc) 5 mg DAILY PO Last administered on 06/23/18 09:59; Admin Dose 5 MG; Start 06/17/18 at 11:30 Miscellaneous Information (*Order Clarification Bulletin) MEDICATION REQUIRES CLARIFICATION:PLE... Q8H XX Last administered on 06/22/18 23:27; Admin Dose 1 EA; Start 06/20/18 at 09:30 Ferric Sodium Gluconate Complex 125 mg/Sodium Chloride 110 ml @ 110 mls/hr DAILY@1300 IVPB Last administered on 06/23/18 12:44; Admin Dose 110 MLS/HR; Start 06/23/18 at 13:00; Stop 06/27/18 at 13:59 SHAHEEN GAMBOA June 24, 2018 08:51
[2018-06-24] MEDS: NYSTATIN 30 GM POWDER BTL TOP SCH ×2 (09:00→21:45)
[2018-06-24] MEDS: AMLODIPINE 5 MG TAB PO SCH (09:00)
[2018-06-24] MEDS: COLLAGENASE 5 GM (UD JAR) TOP SCH (09:00)
[2018-06-24] MEDS: BALSAM PERU/CASTOR OIL 60 GM TUBE TOP SCH ×2 (09:00→21:45)
[2018-06-24] MEDS: MULTIVITAMINS 30 ML CUP GTB SCH (10:27)
[2018-06-24] MEDS: VANCOMYCIN HCL 250 MG/5ML POSYG GTB SCH (10:27)
[2018-06-24] MEDS: SPIRONOLACTONE 25 MG TAB GTB SCH (10:29)
[2018-06-24] MEDS: FAMOTIDINE 20 MG TAB PEG SCH (10:29)
[2018-06-24] MEDS: ZINC SULFATE 220 MG CAP GTB SCH (10:29)
[2018-06-24] MEDS: ASCORBIC ACID 500 MG TAB GTB SCH (10:30)
[2018-06-24] MEDS: AMIODARONE 200 MG TAB PO SCH ×2 (10:30→21:44)
[2018-06-24] MEDS: SOD FERRIC GLUC COMPLX 125 MG in SOD CHLORIDE 0.9% 100 ML IVPB SCH (13:15)
--- NOTE | 2018-06-24 13:15 | CONS ---
Assessment/Plan Assessment/Plan Hospital Course (Demo Recall) Septic as well as hemorrhagic shock-resolved Acute respiratory failure status post intubation and repeat tracheostomy Acute blood loss anemia History of respiratory failure status post decannulation Preserved ejection fraction echocardiogram 05/10/2018 Paroxysmal atrial fibrillation Acute kidney injury History of hypertension-now labile BP -Patient with paroxysmal atrial fibrillation, has remained sinus -Blood pressure on the lower side, decrease dose of norvasc, continue holding parameters -Decrease beta-tin to bid -Continue amiodarone as tolerated -Vent management as per pulmonary -Fluid management and electrolytes as per renal -Antibiotics as per infectious disease -No anticoagulation given recurrent anemia requiring blood transfusions Consultation Date/Type/Reason Admit Date/Time May 06, 2018 at 17:38 Initial Consult Date 05/10/18 Type of Consult Cardiology Requesting Provider: ROLAND GIRON MD Date/Time of Note DATE: 06/24/18 TIME: 13:13 24 HR Interval Summary Free Text/Dictation pt seen and examined Exam/Review of Systems Vital Signs Vitals Vital Signs Date Temp Pulse Resp B/P (MAP) Pulse Ox O2 O2 Flow FiO2 Time Delivery Rate 06/24/18 98.0 71 22 102/44 100 12:08 (63) 06/24/18 30 11:00 06/24/18 Mechanical 04:34 Ventilator Intake and Output 06/23/18 06/23/18 06/24/18 1414:59 22:59 06:59 IntakeIntake Total 160 ml 500 ml OutputOutput Total 900 ml 650 ml BalanceBalance 160 ml -900 ml -150 ml Exam Constitutional: alert (nad, not answering questions, following commands) Head: normocephalic Respiratory: other (course bs, no wheeze) Cardiovascular: regular rate and rhythm (s1s2) Gastrointestinal: soft, non-tender, bowel sounds Extremities: edema Labs Result Diagram: 06/24/18 0730 06/24/18 0730 Results 24hrs Laboratory Tests Test 06/24/18 07:30 White Blood Count 8.4 Red Blood Count 2.65 #L Hemoglobin 8.7 #L Hematocrit 27.7 #L Mean Corpuscular Volume 104.5 H Mean Corpuscular Hemoglobin 32.8 Mean Corpuscular Hemoglobin Concent 31.4 L Red Cell Distribution Width 25.1 H Platelet Count 343 Mean Platelet Volume 9.5 Immature Granulocytes % 0.400 Neutrophils % 79.8 H Lymphocytes % 8.6 L Monocytes % 6.9 Eosinophils % 4.2 Basophils % 0.1 Nucleated Red Blood Cells % 0.0 Immature Granulocytes # 0.030 Neutrophils # 6.7 Lymphocytes # 0.7 L Monocytes # 0.6 Eosinophils # 0.4 Basophils # 0.0 Nucleated Red Blood Cells # 0.0 Sodium Level 134 L Potassium Level 3.8 Chloride Level 102 Carbon Dioxide Level 24 Anion Gap 8 Blood Urea Nitrogen 58 H Creatinine 1.46 H Est Glomerular Filtrat Rate mL/min Glucose Level 93 Calcium Level 9.4 Phosphorus Level 4.0 Magnesium Level 1.9 Medications Medications Current Medications IV Flush (NS 10 ml) 10 ml PRN IV ; Start 05/06/18 at 20:30 Ascorbic Acid (Vitamin C) 500 mg DAILY GTB Last administered on 06/24/18 10:30; Admin Dose 500 MG; Start 05/07/18 at 09:00 Albuterol/ Ipratropium (Duoneb) 3 ml Q2H RESP THERAPY PRN HHN SHORTNESS OF BREATH Last administered on 06/22/18 11:03; Admin Dose 3 ML; Start 05/06/18 at 23:30 Zinc Sulfate (Zinc Sulfate) 220 mg DAILY GTB Last administered on 06/24/18 10:29; Admin Dose 220 MG; Start 05/07/18 at 09:00 Ondansetron HCl (Zofran Tab) 4 mg Q6H PRN GTB NAUSEA AND/OR VOMITING Last administered on 05/31/18 16:47; Admin Dose 4 MG; Start 05/07/18 at 00:15 Multivitamins (Multivitamin) 30 ml DAILY GTB Last administered on 06/24/18 10:27; Admin Dose 30 ML; Start 05/07/18 at 09:00 Miscellaneous Information (Pending Santyl Order For Wound Care) This patient goldman... PRN PRN XX WOUND CARE; Start 05/09/18 at 17:00 Spironolactone (Aldactone) 50 mg DAILY GTB Last administered on 06/24/18 10:29; Admin Dose 50 MG; Start 05/21/18 at 09:00 Famotidine (Pepcid) 20 mg DAILY PEG Last administered on 06/24/18 10:29; Admin Dose 20 MG; Start 05/23/18 at 09:00 Morphine Sulfate (morphine) 6 mg Q4H PRN PEG SEVERE PAIN LEVEL 7-10 Last admini stered on 06/23/18 22:44; Admin Dose 6 MG; Start 05/22/18 at 17:00 Albumin Human 100 ml @ 100 mls/hr DURING DIALYSIS PRN IV hypotension on hd Last administered on 05/29/18 14:49; Admin Dose 100 MLS/HR; Start 05/27/18 at 07:30 Cholestyramine Resin (Questran Light) 4 gm 0600,1200,1800,2300 PO Last a dministered on 06/24/18 05:09; Admin Dose 4 GM; Start 05/27/18 at 18:00 Lorazepam (Ativan) 0.5 mg Q4H PRN IV ANXIETY Last administered on 06/22/18 18:11; Admin Dose 0.5 MG; Start 05/30/18 at 12:00 Acetaminophen (Tylenol Tab) 650 mg Q4H PRN PO MILD PAIN(1-3)OR ELEVATED TEMP Last administered on 06/10/18 21:44; Admin Dose 650 MG; Start 05/31/18 at 13:00 Metoclopramide HCl (Reglan) 5 mg Q6 IV Last administered on 06/24/18 05:09; Admin Dose 5 MG; Start 05/31/18 at 13:00 Collagenase (Santyl) 1 applic DAILY TOP Last administered on 06/24/18 09:00; Admin Dose 1 APPLIC; Start 06/01/18 at 09:00 Clonidine (Catapres) 0.1 mg Q6H PRN PO ELEVATED BLOOD PRESSURE Last administered on 06/17/18 05:59; Admin Dose 0.1 MG; Start 06/03/18 at 03:30 Metoprolol Tartrate (Lopressor) 75 mg Q8 GTB Last administered on 06/24/18 05:09; Admin Dose 75 MG; Start 06/08/18 at 14:00 Bumetanide (Bumex) 1 mg BID DIURETICS GTB Last administered on 06/24/18 05:09; Admin Dose 1 MG; Start 06/11/18 at 18:00 Amiodarone HCl (Cordarone) 200 mg Q12 PO Last administered on 06/24/18 10:30; Admin Dose 200 MG; Start 06/12/18 at 21:00 Collagenase (Santyl) 1 applic PRN PRN TOP WHEN SOILED; Start 06/13/18 at 01:00 Nystatin (Nystatin Powder) 1 applic BID TOP Last administered on 06/24/18 09:00; Admin Dose 1 APPLIC; Start 06/13/18 at 14:00 Vancomycin HCl (Vancomycin Oral Syringe) 250 mg DAILY GTB Last administered on 06/24/18 10:27; Admin Dose 250 MG; Start 06/22/18 at 09:00; Stop 06/29/18 at 08:59 Vancomycin HCl (Vancomycin Oral Syringe) 250 mg Q48H GTB ; Start 06/29/18 at 14:00; Stop 07/06/18 at 13:59 Epoetin Zen-epbx (RETACRIT(esrd)) 20,000 unit Tu@1700 SC Last administered on 06/23/18 17:41; Admin Dose 20,000 UNIT; Start 06/16/18 at 18:30 Amlodipine Besylate (Norvasc) 5 mg DAILY PO Last administered on 06/23/18 09:59; Admin Dose 5 MG; Start 06/17/18 at 11:30 Miscellaneous Information (*Order Clarification Bulletin) MEDICATION REQUIRES CLARIFICATION:PLE... Q8H XX Last administered on 06/22/18 23:27; Admin Dose 1 EA; Start 06/20/18 at 09:30 Ferric Sodium Gluconate Complex 125 mg/Sodium Chloride 110 ml @ 110 mls/hr DAILY@1300 IVPB Last administered on 06/23/18 12:44; Admin Dose 110 MLS/HR; Start 06/23/18 at 13:00; Stop 06/27/18 at 13:59 Evangelista Scanlon DO June 24, 2018 13:15
--- NOTE | 2018-06-24 13:27 | CONS ---
Assessment/Plan Assessment/Plan Hospital Course (Demo Recall) # sepsis, leukocytosis, SIRS, pulmonary, cardiac - recurrent leukocytosis due to recurrent UTI, improved - s/p septic shock due to pneumonia and C diff colitis - acute on chronic hypoxic respiratory failure, persistent - s/p reintubation 05/12/2018 - s/p re-do trach on 05/29/2018 - recurrent colonization of the anterior neck wound with ESBL+kleb, MRSA, GBS, corynebacteria on 05/06/2018, s/p meropenem - h/o pneumonia vs. colonization of the airway by pseudomonas and ESBL+klebsiella - h/o possible, recurrent HCAP due to pseudomonas and ESBL+klebsiella - h/o recurrent HCAP due to MRSA and Enterobacter (culture of tracheal aspirate on 07/16/2017 that was collected at [facility]) . Pt took vancomycin and ceftazidime - h/o decannulation prior to admission - h/o tracheostomy on 06/11/2017 - h/o SIRS from UGIB in 2018 - h/o thoracentesis on 07/18/2017, transudative (protein <2, LDH 279) - h/o bleeding from the trach site in 2018 - h/o septic shock due to pneumonia, ARDS, bacteremia, fungemia in 2018 - h/o ARDS in 2018 - h/o smoking - COPD - h/o ILD per medical record - h/o PAF, improved # GI - possible ileus or enterocolitis on CT abd/pel 06/15/2018 - C diff colitis, diagnosed on 05/11/2018. Pt's on pGT vancomycin induction followed by taper (05/11/2018-); Pt previously took IV metronidazole (05/11/2018- 05/29/2018; restart 05/30/2018-06/05/18) too - h/o intermittent diarrhea, Pt had multiple negative C. diff tests at [facility] at OSH in the past; none was positive until 05/11/2018 - dysphagia - h/o PEG placement 06/13/2018 - protein calorie malnutrition - h/o coffee ground emesis/UGIB on 12/23/2017 due to deep ulceration of distal esophagus and gastritis on EGD 12/26/2017. No e/o H. pylori - h/o possible appendicitis on CT on 11/22/2017, Pt took ertapenem (11/24/2017-12/01/2017) - h/o extensive adhesions lower abdominal and pelvis between small bowel to each other and to colon and to abdominal wall, anterior pelvic wall chronic abscess secondary to probably an old perforated diverticulitis, torsion of small bowel around these dense adhesion causing multiple obstructive points - h/o laparoscopic exploration and extensive lysis of adhesions and drainage of anterior pelvic wall abscess 09/16/2017. Cultures were negative, no e/o malignancy. 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 S/p renally dosed amikacin for klebsiella in her urine culture (06/17-06/22/2018) - UTI due to pseudomonas and ESBL+klebsiella on 06/09/2018, Pt took one dose of fosfomycin on 06/10/2018 and cipro 06/12-06/15/2018 - anasarca - started on HD on 05/15/2018, via Juan in R groin - recurrent NATHAN on CKD - 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 Her strain of CRE was sensitive to colistin, Avycaz, and Vabomere but resistant to Zerbaxa (reported on 05/19/2018) - Hyponatremia - Hyperkalemia, now hypokalemia - Metabolic acidosis - adrenal insufficiency - h/o vaginal bleed in 2018 - h/o colonization of urinary tract by ESBL+klebsiella, VRE - h/o recurrent, symptomatic UTI due to carbapenem-resistant kleb (MDR strain) per urine culture 10/04/17, 10/09/17, 10/21/2017, P took colistin (10/09/2017- 10/15/2017), fosfomycin for carbapenemase-producing klebsiella and VRE on 10/25/2017 and 10/28/2017 - h/o funguria - h/o urinary retention # fungemia, bacteremia 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; Pt declined surgery for MVR per outside medical records; TTE 07/01/17 did not mention any thrombus; s/p voriconazole (05/25/2017-08/01/2017) - h/o bacteremia due to MSSA and proteus s/p ceftriaxone; repeat blood cultures were negative on 06/14/2017 # musculoskeletal and dermatological - L hand pain - dry skin - chronic wound of LLE - h/o infection of wound of LLE - h/o debridement of wound of LLE on 08/06/2017 - h/o recurrent herpes labialis, Pt took acyclovir, valacyclovir - h/o Osler's nodes (eschar) of R toes with erythematous skin; desquamation of the skin and open lacerations on R plantar foot. improved. Probable m anifestation of endocarditis. Pt declined MRI on 08/06/2017 - h/o infection of R toes due to pseudomonas. coagulase negative Staph likely a colonizer - h/o intertrigo of the groin, resolved with nystatin powder - h/o scabies, locally crusted lesion over L scapula, s/p permethrin cream and pGT ivermectin on 08/11/2017, 08/12/2017, 08/19/2017. Repeat skin scraping on 08/21/2017 was negative for scabies # psych, neuro - decreased hearing b/l - s/p acute toxic metabolic encephalopathy - h/o critical illness polyneuropathy - anxiety/depression, bipolar d/o, seen by Psychiatry in the past - chronic pain syndrome - h/o medical non-compliance: she would refuse her medications, treatment and straight catheterization in 2018 # hematological, vascular - chronic anemia requiring blood transfusion intermittently - macrocytic anemia - aneurysmal dilatation of the distal aorta visualized on CT 06/15/2018 - PVD Recommendations: - Monitor closely off systemic antibiotics. S/p renally dosed amikacin for klebsiella in her urine culture (06/17-06/22/2018) - Continue pGT vancomycin taper: 06/15/2018-06/21/2018 bid, 06/22-06/28: daily, 06/29- 07/05: q48hrs Consultation Date/Type/Reason Admit Date/Time May 06, 2018 at 17:38 Initial Consult Date 05/10/18 Type of Consult ID Requesting Provider: ROLAND GIRON MD Date/Time of Note DATE: 06/24/18 TIME: 13:26 Exam/Review of Systems Exam Vitals Vital Signs Date Temp Pulse Resp B/P (MAP) Pulse Ox O2 O2 Flow FiO2 Time Delivery Rate 06/24/18 72 13:13 06/24/18 25 98 30 12:50 06/24/18 98.0 102/44 12:08 (63) 06/24/18 Mechanical 04:34 Ventilator Intake and Output 06/23/18 06/23/18 06/24/18 1515:00 23:00 07:00 IntakeIntake Total 160 ml 500 ml OutputOutput Total 900 ml 650 ml BalanceBalance 160 ml -900 ml -150 ml Constitutional: alert, oriented, well developed Psych: no complaints, nl mood/affect Head: normocephalic, atraumatic Eyes: nl conjunctiva, EOMI, nl lids, nl sclera, PERRL Respiratory: diminished breath sounds Cardiovascular: regular rate and rhythm Gastrointestinal: soft Results Result Diagram: 06/24/18 0730 06/24/18 0730 Results 24hrs Laboratory Tests Test 06/24/18 07:30 White Blood Count 8.4 Red Blood Count 2.65 #L Hemoglobin 8.7 #L Hematocrit 27.7 #L Mean Corpuscular Volume 104.5 H Mean Corpuscular Hemoglobin 32.8 Mean Corpuscular Hemoglobin Concent 31.4 L Red Cell Distribution Width 25.1 H Platelet Count 343 Mean Platelet Volume 9.5 Immature Granulocytes % 0.400 Neutrophils % 79.8 H Lymphocytes % 8.6 L Monocytes % 6.9 Eosinophils % 4.2 Basophils % 0.1 Nucleated Red Blood Cells % 0.0 Immature Granulocytes # 0.030 Neutrophils # 6.7 Lymphocytes # 0.7 L Monocytes # 0.6 Eosinophils # 0.4 Basophils # 0.0 Nucleated Red Blood Cells # 0.0 Sodium Level 134 L Potassium Level 3.8 Chloride Level 102 Carbon Dioxide Level 24 Anion Gap 8 Blood Urea Nitrogen 58 H Creatinine 1.46 H Est Glomerular Filtrat Rate mL/min Glucose Level 93 Calcium Level 9.4 Phosphorus Level 4.0 Magnesium Level 1.9 Medications Medication Current Medications IV Flush (NS 10 ml) 10 ml PRN IV ; Start 05/06/18 at 20:30 Ascorbic Acid (Vitamin C) 500 mg DAILY GTB Last administered on 06/24/18 10:30; Admin Dose 500 MG; Start 05/07/18 at 09:00 Albuterol/ Ipratropium (Duoneb) 3 ml Q2H RESP THERAPY PRN HHN SHORTNESS OF BREATH Last administered on 06/22/18 11:03; Admin Dose 3 ML; Start 05/06/18 at 23:30 Zinc Sulfate (Zinc Sulfate) 220 mg DAILY GTB Last administered on 06/24/18 10:29; Admin Dose 220 MG; Start 05/07/18 at 09:00 Ondansetron HCl (Zofran Tab) 4 mg Q6H PRN GTB NAUSEA AND/OR VOMITING Last administered on 05/31/18 16:47; Admin Dose 4 MG; Start 05/07/18 at 00:15 Multivitamins (Multivitamin) 30 ml DAILY GTB Last administered on 06/24/18 10:27; Admin Dose 30 ML; Start 05/07/18 at 09:00 Miscellaneous Information (Pending Santyl Order For Wound Care) This patient goldman... PRN PRN XX WOUND CARE; Start 05/09/18 at 17:00 Spironolactone (Aldactone) 50 mg DAILY GTB Last administered on 06/24/18 10:29; Admin Dose 50 MG; Start 05/21/18 at 09:00 Famotidine (Pepcid) 20 mg DAILY PEG Last administered on 06/24/18 10:29; Admin Dose 20 MG; Start 05/23/18 at 09:00 Morphine Sulfate (morphine) 6 mg Q4H PRN PEG SEVERE PAIN LEVEL 7-10 Last administered on 06/23/18 22:44; Admin Dose 6 MG; Start 05/22/18 at 17:00 Albumin Human 100 ml @ 100 mls/hr DURING DIALYSIS PRN IV hypotension on hd Last administered on 05/29/18 14:49; Admin Dose 100 MLS/HR; Start 05/27/18 at 07:30 Cholestyramine Resin (Questran Light) 4 gm 0600,1200,1800,2300 PO Last administered on 06/24/18 13:15; Admin Dose 4 GM; Start 05/27/18 at 18:00 Lorazepam (Ativan) 0.5 mg Q4H PRN IV ANXIETY Last administered on 06/22/18 18:11; Admin Dose 0.5 MG; Start 05/30/18 at 12:00 Acetaminophen (Tylenol Tab) 650 mg Q4H PRN PO MILD PAIN(1-3)OR ELEVATED TEMP Last administered on 06/10/18 21:44; Admin Dose 650 MG; Start 05/31/18 at 13:00 Metoclopramide HCl (Reglan) 5 mg Q6 IV Last administered on 06/24/18 13:15; Admin Dose 5 MG; Start 05/31/18 at 13:00 Collagenase (Santyl) 1 applic DAILY TOP Last administered on 06/24/18 09:00; Admin Dose 1 APPLIC; Start 06/01/18 at 09:00 Clonidine (Catapres) 0.1 mg Q6H PRN PO ELEVATED BLOOD PRESSURE Last administered on 06/17/18 05:59; Admin Dose 0.1 MG; Start 06/03/18 at 03:30 Bumetanide (Bumex) 1 mg BID DIURETICS GTB Last administered on 06/24/18 05:09; Admin Dose 1 MG; Start 06/11/18 at 18:00 Amiodarone HCl (Cordarone) 200 mg Q12 PO Last administered on 06/24/18 10:30; Admin Dose 200 MG; Start 06/12/18 at 21:00 Collagenase (Santyl) 1 applic PRN PRN TOP WHEN SOILED; Start 06/13/18 at 01:00 Nystatin (Nystatin Powder) 1 applic BID TOP Last administered on 06/24/18 09:00; Admin Dose 1 APPLIC; Start 06/13/18 at 14:00 Vancomycin HCl (Vancomycin Oral Syringe) 250 mg DAILY GTB Last administered on 06/24/18 10:27; Admin Dose 250 MG; Start 06/22/18 at 09:00; Stop 06/29/18 at 08:59 Vancomycin HCl (Vancomycin Oral Syringe) 250 mg Q48H GTB ; Start 06/29/18 at 14:00; Stop 07/06/18 at 13:59 Epoetin Zen-epbx (RETACRIT(esrd)) 20,000 unit Tu@1700 SC Last administered on 06/23/18at 17:41; Admin Dose 20,000 UNIT; Start 06/16/18 at 18:30 Miscellaneous Information (*Order Clarification Bulletin) MEDICATION REQUIRES CLARIFICATION:PLE... Q8H XX Last administered on 06/22/18at 23:27; Admin Dose 1 EA; Start 06/20/18 at 09:30 Ferric Sodium Gluconate Complex 125 mg/Sodium Chloride 110 ml @ 110 mls/hr DAILY@1300 IVPB Last administered on 06/24/18at 13:15; Admin Dose 110 MLS/HR; Start 06/23/18 at 13:00; Stop 06/27/18 at 13:59 Amlodipine Besylate (Norvasc) 2.5 mg DAILY PO ; Start 06/25/18 at 09:00 Metoprolol Tartrate (Lopressor) 75 mg BID GTB ; Start 06/24/18 at 21:00 MANN VALDEZ MD June 24, 2018 13:27
--- NOTE | 2018-06-24 14:52 | PN ---
Date/Time of Note Date/Time of Note DATE: 06/24/18 TIME: 14:51 Assessment/Plan VTE Prophylaxis Risk score (from [facility])>0 risk: 9 SCD applied (from [facility]): Yes Pharmacological prophylaxis: NA/contraindicated Pharm contraindication: bleeding Lines/Catheters IV [facility]atheter Type (from [facility]): PICC Line Central line still needed: Yes Urinary Cath still in place: Yes Reason Cath still needed: urinary retention Assessment/Plan Hospital Course Patient is awake alert continues on ventilatory support, hemoglobin is 8.7 after blood transfusion last night. Pending placement. Assessment/Plan -MDR Klebsiella urinary tract infection, completed treatment with amikacin. Dr. Walton is following in infectious consultation. -Atrial fibrillation was rapid ventricular response, patient remains in sinus rhythm continue metoprolol and amiodarone. Dr. Scanlon is following in cardiology consultation. -S/p septic shock secondary to urinary tract infection, anterior neck soft tissue infection, and C. difficile colitis. -C-diff colitis, continue G-tube Vanco at the taper doses, -Acute respiratory failure requiring intubation and ventilatory support. Dr. Lambert is following in pulmonology consultation. -S/p tracheostomy on 05/29/18. -Acute kidney injury on chronic kidney disease. Started on HD this admission. Dr. Mckeon is following in nephrology consultation. -Anemia of chronic inflammation, stool for OB is negative, status post blood transfusion. Continue Epogen. -Metabolic acidosis, resolved. -Acute diastolic congestive heart failure. -Paroxysmal atrial fibrillation -COPD -Dysphagia with PEG. -G-tube mild malfunction, changed by GI Dr. Carolina is following in gastroenterology consultation. -Obesity Further recommendations based on clinical course. Plan of care discussed with Dr. Eisenberg. Result Diagram: 06/24/18 0730 06/24/18 0730 Results 24hrs Laboratory Tests Test 06/24/18 07:30 White Blood Count 8.4 Red Blood Count 2.65 #L Hemoglobin 8.7 #L Hematocrit 27.7 #L Mean Corpuscular Volume 104.5 H Mean Corpuscular Hemoglobin 32.8 Mean Corpuscular Hemoglobin Concent 31.4 L Red Cell Distribution Width 25.1 H Platelet Count 343 Mean Platelet Volume 9.5 Immature Granulocytes % 0.400 Neutrophils % 79.8 H Lymphocytes % 8.6 L Monocytes % 6.9 Eosinophils % 4.2 Basophils % 0.1 Nucleated Red Blood Cells % 0.0 Immature Granulocytes # 0.030 Neutrophils # 6.7 Lymphocytes # 0.7 L Monocytes # 0.6 Eosinophils # 0.4 Basophils # 0.0 Nucleated Red Blood Cells # 0.0 Sodium Level 134 L Potassium Level 3.8 Chloride Level 102 Carbon Dioxide Level 24 Anion Gap 8 Blood Urea Nitrogen 58 H Creatinine 1.46 H Est Glomerular Filtrat Rate mL/min Glucose Level 93 Calcium Level 9.4 Phosphorus Level 4.0 Magnesium Level 1.9 Exam/Review of Systems Exam Vitals Vital Signs Date Temp Pulse Resp B/P (MAP) Pulse Ox O2 O2 Flow FiO2 Time Delivery Rate 06/24/18 72 13:13 06/24/18 25 98 30 12:50 06/24/18 98.0 102/44 12:08 (63) 06/24/18 Mechanical 04:34 Ventilator Intake and Output 06/23/18 06/23/18 06/24/18 1414:59 22:59 06:59 IntakeIntake Total 160 ml 500 ml OutputOutput Total 900 ml 650 ml BalanceBalance 160 ml -900 ml -150 ml Exam Constitutional: alert, oriented Neck: other (Tracheostomy) Respiratory: diminished breath sounds Cardiovascular: regular rate and rhythm Gastrointestinal: soft, non-tender, other (G-tube) Extremities: normal pulses Neurological: nl mental status Results Results 24hrs Laboratory Tests Test 06/24/18 07:30 White Blood Count 8.4 Red Blood Count 2.65 #L Hemoglobin 8.7 #L Hematocrit 27.7 #L Mean Corpuscular Volume 104.5 H Mean Corpuscular Hemoglobin 32.8 Mean Corpuscular Hemoglobin Concent 31.4 L Red Cell Distribution Width 25.1 H Platelet Count 343 Mean Platelet Volume 9.5 Immature Granulocytes % 0.400 Neutrophils % 79.8 H Lymphocytes % 8.6 L Monocytes % 6.9 Eosinophils % 4.2 Basophils % 0.1 Nucleated Red Blood Cells % 0.0 Immature Granulocytes # 0.030 Neutrophils # 6.7 Lymphocytes # 0.7 L Monocytes # 0.6 Eosinophils # 0.4 Basophils # 0.0 Nucleated Red Blood Cells # 0.0 Sodium Level 134 L Potassium Level 3.8 Chloride Level 102 Carbon Dioxide Level 24 Anion Gap 8 Blood Urea Nitrogen 58 H Creatinine 1.46 H Est Glomerular Filtrat Rate mL/min Glucose Level 93 Calcium Level 9.4 Phosphorus Level 4.0 Magnesium Level 1.9 Medications Medication Current Medications IV Flush (NS 10 ml) 10 ml PRN IV ; Start 05/06/18 at 20:30 Ascorbic Acid (Vitamin C) 500 mg DAILY GTB Last administered on 06/24/18 10:30; Admin Dose 500 MG; Start 05/07/18 at 09:00 Albuterol/ Ipratropium (Duoneb) 3 ml Q2H RESP THERAPY PRN HHN SHORTNESS OF BREATH Last administered on 06/22/18 11:03; Admin Dose 3 ML; Start 05/06/18 at 23:30 Zinc Sulfate (Zinc Sulfate) 220 mg DAILY GTB Last administered on 06/24/18 10:29; Admin Dose 220 MG; Start 05/07/18 at 09:00 Ondansetron HCl (Zofran Tab) 4 mg Q6H PRN GTB NAUSEA AND/OR VOMITING Last administered on 05/31/18 16:47; Admin Dose 4 MG; Start 05/07/18 at 00:15 Multivitamins (Multivitamin) 30 ml DAILY GTB Last administered on 06/24/18 10:27; Admin Dose 30 ML; Start 05/07/18 at 09:00 Miscellaneous Information (Pending [facility] Order For Wound Care) This patient goldman... PRN PRN XX WOUND CARE; Start 05/09/18 at 17:00 Spironolactone (Aldactone) 50 mg DAILY GTB Last administered on 06/24/18 10:29; Admin Dose 50 MG; Start 05/21/18 at 09:00 Famotidine (Pepcid) 20 mg DAILY PEG Last administered on 06/24/18 10:29; Admin Dose 20 MG; Start 05/23/18 at 09:00 Morphine Sulfate (morphine) 6 mg Q4H PRN PEG SEVERE PAIN LEVEL 7-10 Last a dministered on 06/23/18 22:44; Admin Dose 6 MG; Start 05/22/18 at 17:00 Albumin Human 100 ml @ 100 mls/hr DURING DIALYSIS PRN IV hypotension on hd Last administered on 05/29/18 14:49; Admin Dose 100 MLS/HR; Start 05/27/18 at 07:30 Cholestyramine Resin (Questran Light) 4 gm 0600,1200,1800,2300 PO Last administered on 06/24/18 13:15; Admin Dose 4 GM; Start 05/27/18 at 18:00 Lorazepam (Ativan) 0.5 mg Q4H PRN IV ANXIETY Last administered on 06/22/18 18:11; Admin Dose 0.5 MG; Start 05/30/18 at 12:00 Acetaminophen (Tylenol Tab) 650 mg Q4H PRN PO MILD PAIN(1-3)OR ELEVATED TEMP Last administered on 06/10/18 21:44; Admin Dose 650 MG; Start 05/31/18 at 13:00 Metoclopramide HCl (Reglan) 5 mg Q6 IV Last administered on 06/24/18 13:15; Admin Dose 5 MG; Start 05/31/18 at 13:00 Collagenase (Santyl) 1 applic DAILY TOP Last administered on 06/24/18 09:00; Admin Dose 1 APPLIC; Start 06/01/18 at 09:00 Clonidine (Catapres) 0.1 mg Q6H PRN PO ELEVATED BLOOD PRESSURE Last administered on 06/17/18 05:59; Admin Dose 0.1 MG; Start 06/03/18 at 03:30 Bumetanide (Bumex) 1 mg BID DIURETICS GTB Last administered on 06/24/18 05:09; Admin Dose 1 MG; Start 06/11/18 at 18:00 Amiodarone HCl (Cordarone) 200 mg Q12 PO Last administered on 06/24/18 10:30; Admin Dose 200 MG; Start 06/12/18 at 21:00 Collagenase (Santyl) 1 applic PRN PRN TOP WHEN SOILED; Start 06/13/18 at 01:00 Nystatin (Nystatin Powder) 1 applic BID TOP Last administered on 06/24/18 09:00; Admin Dose 1 APPLIC; Start 06/13/18 at 14:00 Vancomycin HCl (Vancomycin Oral Syringe) 250 mg DAILY GTB Last administered on 06/24/18 10:27; Admin Dose 250 MG; Start 06/22/18 at 09:00; Stop 06/29/18 at 08:59 Vancomycin HCl (Vancomycin Oral Syringe) 250 mg Q48H GTB ; Start 06/29/18 at 14:00; Stop 07/06/18 at 13:59 Epoetin Zen-epbx (RETACRIT(esrd)) 20,000 unit Tu@1700 SC Last administered on 06/23/18at 17:41; Admin Dose 20,000 UNIT; Start 06/16/18 at 18:30 Miscellaneous Information (*Order Clarification Bulletin) MEDICATION REQUIRES CLARIFICATION:PLE... Q8H XX Last administered on 06/22/18at 23:27; Admin Dose 1 EA; Start 06/20/18 at 09:30 Ferric Sodium Gluconate Complex 125 mg/Sodium Chloride 110 ml @ 110 mls/hr DAILY@1300 IVPB Last administered on 06/24/18at 13:15; Admin Dose 110 MLS/HR; Start 06/23/18 at 13:00; Stop 06/27/18 at 13:59 Amlodipine Besylate (Norvasc) 2.5 mg DAILY PO ; Start 06/25/18 at 09:00 Metoprolol Tartrate (Lopressor) 75 mg BID GTB ; Start 06/24/18 at 21:00 GRISELDA DENNIS June 24, 2018 14:52
[2018-06-24] MEDS: morphine LIQ (10 MG/5 ML) CUP PEG PRN (17:03)
[2018-06-25] VITALS (25 sets, daily range): BP systolic 119–139; BP diastolic 61–73; PULSE 66–79; RESP 16–29
[2018-06-25] MEDS: morphine LIQ (10 MG/5 ML) CUP PEG PRN ×3 (04:21→22:21)
[2018-06-25] MEDS: CHOLESTYRAMINE (LIGHT) 4 GM PACKET PO SCH ×4 (05:19→22:34)
[2018-06-25] MEDS: METOCLOPRAMIDE 10 MG INJ IV SCH ×4 (05:19→22:22)
[2018-06-25] MEDS: BUMETANIDE 1 MG TAB GTB SCH ×2 (05:19→17:28)
--- NOTE | 2018-06-25 08:47 | PN ---
DATE: 06/25/2018 SUBJECTIVE: The patient is stable. No events overnight. OBJECTIVE: VITAL SIGNS: Blood pressure is 132/73, respiration 18. HEENT: Head is normocephalic. NECK: Supple. HEART: Regular rate. LUNGS: Diminished breath sounds at the base. ABDOMEN: Soft, nontender to palpation without rebound or guarding. EXTREMITIES: Negative for clubbing, cyanosis. Trace edema. DERMATOLOGIC: No rashes. MUSCULOSKELETAL: No joint effusion. NEUROLOGIC: No change in exam. MEDICATIONS: Reviewed. LABORATORY DATA: Reviewed. ASSESSMENT AND PLAN: 1. Nonoliguric acute kidney injury on top of chronic kidney disease stage IIIB/IV with previous base line creatinine of 2.0 mg/dL. Etiology of acute kidney injury is secondary to acute tubular necrosis . The patient is status post hemodialysis. Renal function stabilized. Continue current treatment p dedra, supportive care and renally dose all medications. 2. Volume overload, currently stable. Continue Bumex 1 mg b.i.d. We will give intermittent metolaz one as needed. 3. Hypernatremia. The patient's free water has been adjusted. Continue to monitor. Followup with renal panel. 4. Anemia. Monitor hemoglobin and hematocrit levels. Continue IV Ferrlecit. We will give intermit tent Epogen as needed. 5. Mineral bone disorder. Monitor calcium and phosphorus levels. 6. Ventilator-dependent respiratory failure. Vent settings and ABG was reviewed. Continue to monit or. 7. Sepsis status post shock. The patient is completing antibiotic course. 8. Lower extremity wounds. Continue wound care. 9. Dysphagia. Continue tube feeding. 10. Encephalopathy. Continue to monitor. Dictated By: JEANA BANSAL DO NR/NTS Conf#: [id number] DID#: [id number] CC: ROLAND GIRON MD; QUINTEN UMAÑA MD;*EndCC*
[2018-06-25] MEDS: ASCORBIC ACID 500 MG TAB GTB SCH (09:34)
[2018-06-25] MEDS: ZINC SULFATE 220 MG CAP GTB SCH (09:34)
[2018-06-25] MEDS: METOPROLOL 25 MG TAB GTB SCH ×2 (09:35→22:22)
[2018-06-25] MEDS: AMLODIPINE 2.5 MG TAB PO SCH (09:35)
[2018-06-25] MEDS: SPIRONOLACTONE 25 MG TAB GTB SCH (09:36)
[2018-06-25] MEDS: AMIODARONE 200 MG TAB PO SCH ×2 (09:36→22:21)
[2018-06-25] MEDS: FAMOTIDINE 20 MG TAB PEG SCH (09:37)
[2018-06-25] MEDS: COLLAGENASE 5 GM (UD JAR) TOP SCH (09:37)
[2018-06-25] MEDS: BALSAM PERU/CASTOR OIL 60 GM TUBE TOP SCH ×2 (09:37→22:24)
[2018-06-25] MEDS: MULTIVITAMINS 30 ML CUP GTB SCH (09:39)
[2018-06-25] MEDS: VANCOMYCIN HCL 250 MG/5ML POSYG GTB SCH (09:49)
[2018-06-25] MEDS: NYSTATIN 30 GM POWDER BTL TOP SCH ×2 (09:50→22:24)
--- NOTE | 2018-06-25 12:55 | CONS ---
Assessment/Plan Assessment/Plan Hospital Course (Demo Recall) Septic as well as hemorrhagic shock-resolved Acute respiratory failure status post intubation and repeat tracheostomy Acute blood loss anemia History of respiratory failure status post decannulation Preserved ejection fraction echocardiogram 05/10/2018 Paroxysmal atrial fibrillation Acute kidney injury History of hypertension-now labile BP -Patient with paroxysmal atrial fibrillation, has remained sinus -Continue beta-tin and titrate as tolerated -Continue amiodarone as tolerated -Vent management as per pulmonary -Fluid management and electrolytes as per renal -Antibiotics as per infectious disease -No anticoagulation given recurrent anemia requiring blood transfusions Consultation Date/Type/Reason Admit Date/Time May 06, 2018 at 17:38 Initial Consult Date 05/10/18 Type of Consult Cardiology Requesting Provider: ROLAND GIRON MD Date/Time of Note DATE: 06/25/18 TIME: 12:53 24 HR Interval Summary Free Text/Dictation Denies shortness of breath, complaining of wheezing, no chest pain or palpitations Exam/Review of Systems Vital Signs Vitals Vital Signs Date Temp Pulse Resp B/P (MAP) Pulse Ox O2 O2 Flow FiO2 Time Delivery Rate 06/25/18 97.5 79 16 125/63 100 Mechanical 11:54 (83) Ventilator 06/25/18 30 11:20 Intake and Output 06/24/18 06/24/18 06/25/18 1414:59 22:59 06:59 IntakeIntake Total 500 ml OutputOutput Total 1200 ml 600 ml BalanceBalance -1200 ml -100 ml Exam Constitutional: alert, oriented (No apparent distress) Head: normocephalic Respiratory: other (Coarse breath sounds bilaterally, no wheezing) Cardiovascular: regular rate and rhythm (S1-S2 heard) Gastrointestinal: soft, non-tender, bowel sounds Extremities: edema Labs Result Diagram: 06/25/18 0908 06/25/18 0908 Results 24hrs Laboratory Tests Test 06/25/18 09:08 White Blood Count 8.7 Red Blood Count 2.74 L Hemoglobin 9.2 L Hematocrit 29.0 L Mean Corpuscular Volume 105.8 H Mean Corpuscular Hemoglobin 33.6 H Mean Corpuscular Hemoglobin Concent 31.7 L Red Cell Distribution Width 24.6 H Platelet Count 330 Mean Platelet Volume 9.7 Immature Granulocytes % 0.500 H Neutrophils % 76.6 Lymphocytes % 9.7 L Monocytes % 7.5 Eosinophils % 5.5 Basophils % 0.2 Nucleated Red Blood Cells % 0.0 Immature Granulocytes # 0.040 H Neutrophils # 6.6 Lymphocytes # 0.8 Monocytes # 0.7 Eosinophils # 0.5 Basophils # 0.0 Nucleated Red Blood Cells # 0.0 Sodium Level 135 Potassium Level 3.8 Chloride Level 105 Carbon Dioxide Level 19 L Anion Gap 11 Blood Urea Nitrogen 57 H Creatinine 1.40 H Est Glomerular Filtrat Rate mL/min Glucose Level 105 Calcium Level 9.3 Medications Medications Current Medications IV Flush (NS 10 ml) 10 ml PRN IV ; Start 05/06/18 at 20:30 Ascorbic Acid (Vitamin C) 500 mg DAILY GTB Last administered on 06/25/18 09:34; Admin Dose 500 MG; Start 05/07/18 at 09:00 Albuterol/ Ipratropium (Duoneb) 3 ml Q2H RESP THERAPY PRN HHN SHORTNESS OF BREATH Last administered on 06/22/18 11:03; Admin Dose 3 ML; Start 05/06/18 at 23:30 Zinc Sulfate (Zinc Sulfate) 220 mg DAILY GTB Last administered on 06/25/18 09:34; Admin Dose 220 MG; Start 05/07/18 at 09:00 Ondansetron HCl (Zofran Tab) 4 mg Q6H PRN GTB NAUSEA AND/OR VOMITING Last administered on 05/31/18 16:47; Admin Dose 4 MG; Start 05/07/18 at 00:15 Multivitamins (Multivitamin) 30 ml DAILY GTB Last administered on 06/25/18 09:39; Admin Dose 30 ML; Start 05/07/18 at 09:00 Miscellaneous Information (Pending Santyl Order For Wound Care) This patient goldman... PRN PRN XX WOUND CARE; Start 05/09/18 at 17:00 Spironolactone (Aldactone) 50 mg DAILY GTB Last administered on 06/25/18 09:36; Admin Dose 50 MG; Start 05/21/18 at 09:00 Famotidine (Pepcid) 20 mg DAILY PEG Last administered on 06/25/18 09:37; Admin Dose 20 MG; Start 05/23/18 at 09:00 Morphine Sulfate (morphine) 6 mg Q4H PRN PEG SEVERE PAIN LEVEL 7-10 Last administered on 06/25/18 09:34; Admin Dose 6 MG; Start 05/22/18 at 17:00 Albumin Human 100 ml @ 100 mls/hr DURING DIALYSIS PRN IV hypotension on hd Last administered on 05/29/18 14:49; Admin Dose 100 MLS/HR; Start 05/27/18 at 07:30 Cholestyramine Resin (Questran Light) 4 gm 0600,1200,1800,2300 PO Last administered on 06/25/18 05:19; Admin Dose 4 GM; Start 05/27/18 at 18:00 Lorazepam (Ativan) 0.5 mg Q4H PRN IV ANXIETY Last administered on 06/22/18 18:11; Admin Dose 0.5 MG; Start 05/30/18 at 12:00 Acetaminophen (Tylenol Tab) 650 mg Q4H PRN PO MILD PAIN(1-3)OR ELEVATED TEMP L ast administered on 06/10/18 21:44; Admin Dose 650 MG; Start 05/31/18 at 13:00 Metoclopramide HCl (Reglan) 5 mg Q6 IV Last administered on 06/25/18 05:19; Admin Dose 5 MG; Start 05/31/18 at 13:00 Collagenase (Santyl) 1 applic DAILY TOP Last administered on 06/25/18 09:37; Admin Dose 1 APPLIC; Start 06/01/18 at 09:00 Clonidine (Catapres) 0.1 mg Q6H PRN PO ELEVATED BLOOD PRESSURE Last administer ed on 06/17/18 05:59; Admin Dose 0.1 MG; Start 06/03/18 at 03:30 Bumetanide (Bumex) 1 mg BID DIURETICS GTB Last administered on 06/25/18 05:19; Admin Dose 1 MG; Start 06/11/18 at 18:00 Amiodarone HCl (Cordarone) 200 mg Q12 PO Last administered on 06/25/18 09:36; Admin Dose 200 MG; Start 06/12/18 at 21:00 Collagenase (Santyl) 1 applic PRN PRN TOP WHEN SOILED; Start 06/13/18 at 01:00 Nystatin (Nystatin Powder) 1 applic BID TOP Last administered on 06/25/18 09:50; Admin Dose 1 APPLIC; Start 06/13/18 at 14:00 Vancomycin HCl (Vancomycin Oral Syringe) 250 mg DAILY GTB Last administered on 06/25/18 09:49; Admin Dose 250 MG; Start 06/22/18 at 09:00; Stop 06/29/18 at 08:59 Vancomycin HCl (Vancomycin Oral Syringe) 250 mg Q48H GTB ; Start 06/29/18 at 14:00; Stop 07/06/18 at 13:59 Epoetin Zen-epbx (RETACRIT(esrd)) 20,000 unit Tu@1700 SC Last administered on 06/23/18 17:41; Admin Dose 20,000 UNIT; Start 06/16/18 at 18:30 Miscellaneous Information (*Order Clarification Bulletin) MEDICATION REQUIRES CLARIFICATION:PLE... Q8H XX Last administered on 06/22/18 23:27; Admin Dose 1 EA; Start 06/20/18 at 09:30 Ferric Sodium Gluconate Complex 125 mg/Sodium Chloride 110 ml @ 110 mls/hr DAILY@1300 IVPB Last administered on 06/24/18 13:15; Admin Dose 110 MLS/HR; Start 06/23/18 at 13:00; Stop 06/27/18 at 13:59 Amlodipine Besylate (Norvasc) 2.5 mg DAILY PO Last administered on 06/25/18 09:35; Admin Dose 2.5 MG; Start 06/25/18 at 09:00 Metoprolol Tartrate (Lopressor) 75 mg BID GTB Last administered on 06/25/18 09:35; Admin Dose 75 MG; Start 06/24/18 at 21:00 Evangelista Scanlon DO June 25, 2018 12:55
--- NOTE | 2018-06-25 13:18 | CONS ---
Assessment/Plan Assessment/Plan Hospital Course (Demo Recall) # sepsis, leukocytosis, SIRS, pulmonary, cardiac - recurrent leukocytosis due to recurrent UTI, improved - s/p septic shock due to pneumonia and C diff colitis - acute on chronic hypoxic respiratory failure, persistent - s/p reintubation 05/12/2018 - s/p re-do trach on 05/29/2018 - recurrent colonization of the anterior neck wound with ESBL+kleb, MRSA, GBS, corynebacteria on 05/06/2018, s/p meropenem - h/o pneumonia vs. colonization of the airway by pseudomonas and ESBL+klebsiella - h/o possible, recurrent HCAP due to pseudomonas and ESBL+klebsiella - h/o recurrent HCAP due to MRSA and Enterobacter (culture of tracheal aspirate on 07/16/2017 that was collected at [facility]) . Pt took vancomycin and ceftazidime - h/o decannulation prior to admission - h/o tracheostomy on 06/11/2017 - h/o SIRS from UGIB in 2018 - h/o thoracentesis on 07/18/2017, transudative (protein <2, LDH 279) - h/o bleeding from the trach site in 2018 - h/o septic shock due to pneumonia, ARDS, bacteremia, fungemia in 2018 - h/o ARDS in 2018 - h/o smoking - COPD - h/o ILD per medical record - h/o PAF, improved # GI - possible ileus or enterocolitis on CT abd/pel 06/15/2018 - C diff colitis, diagnosed on 05/11/2018. Pt's on pGT vancomycin induction followed by taper (05/11/2018-); Pt previously took IV metronidazole (05/11/2018- 05/29/2018; restart 05/30/2018-06/05/18) too - h/o intermittent diarrhea, Pt had multiple negative C. diff tests at [facility] at OSH in the past; none was positive until 05/11/2018 - dysphagia - h/o PEG placement 06/13/2018 - protein calorie malnutrition - h/o coffee ground emesis/UGIB on 12/23/2017 due to deep ulceration of distal esophagus and gastritis on EGD 12/26/2017. No e/o H. pylori - h/o possible appendicitis on CT on 11/22/2017, Pt took ertapenem (11/24/2017-12/01/2017) - h/o extensive adhesions lower abdominal and pelvis between small bowel to each other and to colon and to abdominal wall, anterior pelvic wall chronic abscess secondary to probably an old perforated diverticulitis, torsion of small bowel around these dense adhesion causing multiple obstructive points - h/o laparoscopic exploration and extensive lysis of adhesions and drainage of anterior pelvic wall abscess 09/16/2017. Cultures were negative, no e/o malignancy. 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 S/p renally dosed amikacin for klebsiella in her urine culture (06/17-06/22/2018) - UTI due to pseudomonas and ESBL+klebsiella on 06/09/2018, Pt took one dose of fosfomycin on 06/10/2018 and cipro 06/12-06/15/2018 - anasarca - started on HD on 05/15/2018, via Juan in R groin - recurrent NATHAN on CKD - 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 Her strain of CRE was sensitive to colistin, Avycaz, and Vabomere but resistant to Zerbaxa (reported on 05/19/2018) - Hyponatremia - Hyperkalemia, now hypokalemia - Metabolic acidosis - adrenal insufficiency - h/o vaginal bleed in 2018 - h/o colonization of urinary tract by ESBL+klebsiella, VRE - h/o recurrent, symptomatic UTI due to carbapenem-resistant kleb (MDR strain) per urine culture 10/04/17, 10/09/17, 10/21/2017, P took colistin (10/09/2017- 10/15/2017), fosfomycin for carbapenemase-producing klebsiella and VRE on 10/25/2017 and 10/28/2017 - h/o funguria - h/o urinary retention # fungemia, bacteremia 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; Pt declined surgery for MVR per outside medical records; TTE 07/01/17 did not mention any thrombus; s/p voriconazole (05/25/2017-08/01/2017) - h/o bacteremia due to MSSA and proteus s/p ceftriaxone; repeat blood cultures were negative on 06/14/2017 # musculoskeletal and dermatological - L hand pain - dry skin - chronic wound of LLE - h/o infection of wound of LLE - h/o debridement of wound of LLE on 08/06/2017 - h/o recurrent herpes labialis, Pt took acyclovir, valacyclovir - h/o Osler's nodes (eschar) of R toes with erythematous skin; desquamation of the skin and open lacerations on R plantar foot. improved. Probable m anifestation of endocarditis. Pt declined MRI on 08/06/2017 - h/o infection of R toes due to pseudomonas. coagulase negative Staph likely a colonizer - h/o intertrigo of the groin, resolved with nystatin powder - h/o scabies, locally crusted lesion over L scapula, s/p permethrin cream and pGT ivermectin on 08/11/2017, 08/12/2017, 08/19/2017. Repeat skin scraping on 08/21/2017 was negative for scabies # psych, neuro - decreased hearing b/l - s/p acute toxic metabolic encephalopathy - h/o critical illness polyneuropathy - anxiety/depression, bipolar d/o, seen by Psychiatry in the past - chronic pain syndrome - h/o medical non-compliance: she would refuse her medications, treatment and straight catheterization in 2018 # hematological, vascular - chronic anemia requiring blood transfusion intermittently - macrocytic anemia - aneurysmal dilatation of the distal aorta visualized on CT 06/15/2018 - PVD Recommendations: - Monitor closely off systemic antibiotics. S/p renally dosed amikacin for klebsiella in her urine culture (06/17-06/22/2018) - Continue pGT vancomycin taper: 06/15/2018-06/21/2018 bid, 06/22-06/28: daily, 06/29- 07/05: q48hrs Above plan discussed and coordinated with via [employer]. Consultation Date/Type/Reason Admit Date/Time May 06, 2018 at 17:38 Initial Consult Date 05/10/18 Requesting Provider: ROLAND GIRON MD Date/Time of Note DATE: 06/25/18 TIME: 13:18 24 HR Interval Summary Free Text/Dictation BM X1 soft formed with some liquid Detailed Summary Additional Comments Unable to obtain a detailed ROS as pt is mouthing words only and difficult to understand. She shook her head "no" when asked if she is having diarrhea, fevers, chills, congestion, increased secretions, cough. Exam/Review of Systems Exam Vitals Vital Signs Date Temp Pulse Resp B/P (MAP) Pulse Ox O2 O2 Flow FiO2 Time Delivery Rate 06/25/18 69 12:56 06/25/18 97.5 16 125/63 100 Mechanical 11:54 (83) Ventilator 06/25/18 30 11:20 Intake and Output 06/24/18 06/24/18 06/25/18 1515:00 23:00 07:00 IntakeIntake Total 500 ml OutputOutput Total 1200 ml 600 ml BalanceBalance -1200 ml -100 ml Exam Constitutional: alert, well developed, non-verbal, frail, obese Psych: nl mood/affect Head: normocephalic, atraumatic Eyes: nl conjunctiva, nl lids, nl sclera ENMT: nl external ears & nose, nl nasal mucosa & septum Neck: supple, non-tender, other (on mechanical vent via trach, trach midline, site is c/d/i) Respiratory: normal air movement, diminished breath sounds No wheezing Cardiovascular: regular rate and rhythm, nl pulses Gastrointestinal: soft, non-tender, bowel sounds (normoactive ), other (stool incontinence, stool brown soft with minimal liquid mixed) No distended, No firm Genitourinary - Female: other (F/C draining clear yellow urine, HD catheter R groin, site is c/d/i) Musculoskeletal: muscle weakness, other (julia foot drop) Extremities: normal pulses, edema (BUE, BLE +1); No tenderness Neurological: Awake, alert, communicates via mouthing words, follows commands Skin: nl turgor Results Result Diagram: 06/25/18 0908 06/25/18 0908 Results 24hrs Laboratory Tests Test 06/25/18 09:08 White Blood Count 8.7 Red Blood Count 2.74 L Hemoglobin 9.2 L Hematocrit 29.0 L Mean Corpuscular Volume 105.8 H Mean Corpuscular Hemoglobin 33.6 H Mean Corpuscular Hemoglobin Concent 31.7 L Red Cell Distribution Width 24.6 H Platelet Count 330 Mean Platelet Volume 9.7 Immature Granulocytes % 0.500 H Neutrophils % 76.6 Lymphocytes % 9.7 L Monocytes % 7.5 Eosinophils % 5.5 Basophils % 0.2 Nucleated Red Blood Cells % 0.0 Immature Granulocytes # 0.040 H Neutrophils # 6.6 Lymphocytes # 0.8 Monocytes # 0.7 Eosinophils # 0.5 Basophils # 0.0 Nucleated Red Blood Cells # 0.0 Sodium Level 135 Potassium Level 3.8 Chloride Level 105 Carbon Dioxide Level 19 L Anion Gap 11 Blood Urea Nitrogen 57 H Creatinine 1.40 H Est Glomerular Filtrat Rate mL/min Glucose Level 105 Calcium Level 9.3 Medications Medication Current Medications IV Flush (NS 10 ml) 10 ml PRN IV ; Start 05/06/18 at 20:30 Ascorbic Acid (Vitamin C) 500 mg DAILY GTB Last administered on 06/25/18at 09:34; Admin Dose 500 MG; Start 05/07/18 at 09:00 Albuterol/ Ipratropium (Duoneb) 3 ml Q2H RESP THERAPY PRN HHN SHORTNESS OF BREATH Last administered on 06/22/18at 11:03; Admin Dose 3 ML; Start 05/06/18 at 23:30 Zinc Sulfate (Zinc Sulfate) 220 mg DAILY GTB Last administered on 06/25/18at 09:3 4; Admin Dose 220 MG; Start 05/07/18 at 09:00 Ondansetron HCl (Zofran Tab) 4 mg Q6H PRN GTB NAUSEA AND/OR VOMITING Last administered on 05/31/18 16:47; Admin Dose 4 MG; Start 05/07/18 at 00:15 Multivitamins (Multivitamin) 30 ml DAILY GTB Last administered on 06/25/18 09:39; Admin Dose 30 ML; Start 05/07/18 at 09:00 Miscellaneous Information (Pending Santyl Order For Wound Care) This patient goldman. .. PRN PRN XX WOUND CARE; Start 05/09/18 at 17:00 Spironolactone (Aldactone) 50 mg DAILY GTB Last administered on 06/25/18 09:36; Admin Dose 50 MG; Start 05/21/18 at 09:00 Famotidine (Pepcid) 20 mg DAILY PEG Last administered on 06/25/18 09:37; Admin Dose 20 MG; Start 05/23/18 at 09:00 Morphine Sulfate (morphine) 6 mg Q4H PRN PEG SEVERE PAIN LEVEL 7-10 Last administered on 06/25/18 09:34; Admin Dose 6 MG; Start 05/22/18 at 17:00 Albumin Human 100 ml @ 100 mls/hr DURING DIALYSIS PRN IV hypotension on hd Last administered on 05/29/18 14:49; Admin Dose 100 MLS/HR; Start 05/27/18 at 07:30 Cholestyramine Resin (Questran Light) 4 gm 0600,1200,1800,2300 PO Last administered on 06/25/18 05:19; Admin Dose 4 GM; Start 05/27/18 at 18:00 Lorazepam (Ativan) 0.5 mg Q4H PRN IV ANXIETY Last administered on 06/22/18 18:11; Admin Dose 0.5 MG; Start 05/30/18 at 12:00 Acetaminophen (Tylenol Tab) 650 mg Q4H PRN PO MILD PAIN(1-3)OR ELEVATED TEMP Last administered on 06/10/18 21:44; Admin Dose 650 MG; Start 05/31/18 at 13:00 Metoclopramide HCl (Reglan) 5 mg Q6 IV Last administered on 06/25/18 05:19; Admin Dose 5 MG; Start 05/31/18 at 13:00 Collagenase (Santyl) 1 applic DAILY TOP Last administered on 06/25/18 09:37; Admin Dose 1 APPLIC; Start 06/01/18 at 09:00 Clonidine (Catapres) 0.1 mg Q6H PRN PO ELEVATED BLOOD PRESSURE Last administered on 06/17/18 05:59; Admin Dose 0.1 MG; Start 06/03/18 at 03:30 Bumetanide (Bumex) 1 mg BID DIURETICS GTB Last administered on 06/25/18 05:19; Admin Dose 1 MG; Start 06/11/18 at 18:00 Amiodarone HCl (Cordarone) 200 mg Q12 PO Last administered on 06/25/18 09:36; Admin Dose 200 MG; Start 06/12/18 at 21:00 Collagenase (Santyl) 1 applic PRN PRN TOP WHEN SOILED; Start 06/13/18 at 01:00 Nystatin (Nystatin Powder) 1 applic BID TOP Last administered on 06/25/18 09:50; Admin Dose 1 APPLIC; Start 06/13/18 at 14:00 Vancomycin HCl (Vancomycin Oral Syringe) 250 mg DAILY GTB Last administered on 06/25/18 09:49; Admin Dose 250 MG; Start 06/22/18 at 09:00; Stop 06/29/18 at 08:59 Vancomycin HCl (Vancomycin Oral Syringe) 250 mg Q48H GTB ; Start 06/29/18 at 14:00; Stop 07/06/18 at 13:59 Epoetin Zen-epbx (RETACRIT(esrd)) 20,000 unit Tu@1700 SC Last administered on 06/23/18 17:41; Admin Dose 20,000 UNIT; Start 06/16/18 at 18:30 Miscellaneous Information (*Order Clarification Bulletin) MEDICATION REQUIRES CLARIFICATION:PLE... Q8H XX Last administered on 06/22/18 23:27; Admin Dose 1 EA; Start 06/20/18 at 09:30 Ferric Sodium Gluconate Complex 125 mg/Sodium Chloride 110 ml @ 110 mls/hr DAILY@1300 IVPB Last administered on 06/24/18 13:15; Admin Dose 110 MLS/HR; Start 06/23/18 at 13:00; Stop 06/27/18 at 13:59 Amlodipine Besylate (Norvasc) 2.5 mg DAILY PO Last administered on 06/25/18 09:35; Admin Dose 2.5 MG; Start 06/25/18 at 09:00 Metoprolol Tartrate (Lopressor) 75 mg BID GTB Last administered on 06/25/18at 09:35; Admin Dose 75 MG; Start 06/24/18 at 21:00 ARANZA FAY NP June 25, 2018 13:18
--- NOTE | 2018-06-25 13:26 | CONS ---
Assessment/Plan Assessment/Plan Hospital Course (Demo Recall) 73 yo female Interval hx: Diarrhea has stopped, formed brown per RN. No signs of GI bleedin g 1. ABD pain -CT of abd 2. Renal failure.- on HD 3. Vent dependent resp failure 4. Chronic obstructive pulmonary disease. 5. Bipolar. 6. Paroxysmal atrial fibrillation. 7. Anemia of chronic disease. 8. CHF 9. Diarrhea 11. Diarrhea -s/p c diff colitis -taper off of vanco 12. H/O deep esophageal ulcer 13. Dysphagia with g tube 14. Anemia of chronic disease 15. UTI with positive cx CT of abd/pelvis 06/16 1. Nonspecific bibasilar ground-glass densities and the airspace disease, s uggesting bilateral pneumonia versus pulmonary edema. 2. Atrophy of the left kidney. 2.3 cm left renal cyst. The right kidney demonstrates compensatory hypertrophy. No calculus or hydronephrosis in either kidney. 3. Atherosclerosis of the aorta. 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 No leak or rupture. 4. Mild nonspecific ascites in the pelvis. 5. Air-fluid levels are seen throughout the small bowel and colon. Consider mild ileus versus enterocolitis. PLAN: Continue with reglan and pepcid Monitor tube feeds residuals q 6 hour Pt examined and plan of care discussed with Dr Carolina Consultation Date/Type/Reason Admit Date/Time May 06, 2018 at 17:38 Initial Consult Date 05/10/18 Requesting Provider: ROLAND GIRON MD Date/Time of Note DATE: 06/25/18 TIME: 13:25 Exam/Review of Systems Exam Vitals Vital Signs Date Temp Pulse Resp B/P (MAP) Pulse Ox O2 O2 Flow FiO2 Time Delivery Rate 06/25/18 69 12:56 06/25/18 97.5 16 125/63 100 Mechanical 11:54 (83) Ventilator 06/25/18 30 11:20 Intake and Output 06/24/18 06/24/18 06/25/18 1515:00 23:00 07:00 IntakeIntake Total 500 ml OutputOutput Total 1200 ml 600 ml BalanceBalance -1200 ml -100 ml Constitutional: alert, oriented Head: normocephalic Eyes: PERRL Respiratory: normal air movement Gastrointestinal: soft, tender Neurological: nl mental status Results Result Diagram: 06/25/1890706/25/18907 Results 24hrs Laboratory Tests Test 06/25/18 09:08 White Blood Count 8.7 Red Blood Count 2.74 L Hemoglobin 9.2 L Hematocrit 29.0 L Mean Corpuscular Volume 105.8 H Mean Corpuscular Hemoglobin 33.6 H Mean Corpuscular Hemoglobin Concent 31.7 L Red Cell Distribution Width 24.6 H Platelet Count 330 Mean Platelet Volume 9.7 Immature Granulocytes % 0.500 H Neutrophils % 76.6 Lymphocytes % 9.7 L Monocytes % 7.5 Eosinophils % 5.5 Basophils % 0.2 Nucleated Red Blood Cells % 0.0 Immature Granulocytes # 0.040 H Neutrophils # 6.6 Lymphocytes # 0.8 Monocytes # 0.7 Eosinophils # 0.5 Basophils # 0.0 Nucleated Red Blood Cells # 0.0 Sodium Level 135 Potassium Level 3.8 Chloride Level 105 Carbon Dioxide Level 19 L Anion Gap 11 Blood Urea Nitrogen 57 H Creatinine 1.40 H Est Glomerular Filtrat Rate mL/min Glucose Level 105 Calcium Level 9.3 Medications Medication Current Medications IV Flush (NS 10 ml) 10 ml PRN IV ; Start 05/06/18 at 20:30 Ascorbic Acid (Vitamin C) 500 mg DAILY GTB Last administered on 06/25/18 09:34; Admin Dose 500 MG; Start 05/07/18 at 09:00 Albuterol/ Ipratropium (Duoneb) 3 ml Q2H RESP THERAPY PRN HHN SHORTNESS OF BREATH Last administered on 06/22/18 11:03; Admin Dose 3 ML; Start 05/06/18 at 23:30 Zinc Sulfate (Zinc Sulfate) 220 mg DAILY GTB Last administered on 06/25/18 09:34; Admin Dose 220 MG; Start 05/07/18 at 09:00 Ondansetron HCl (Zofran Tab) 4 mg Q6H PRN GTB NAUSEA AND/OR VOMITING Last adm inistered on 05/31/18 16:47; Admin Dose 4 MG; Start 05/07/18 at 00:15 Multivitamins (Multivitamin) 30 ml DAILY GTB Last administered on 06/25/18 09:39; Admin Dose 30 ML; Start 05/07/18 at 09:00 Miscellaneous Information (Pending Santyl Order For Wound Care) This patient goldman... PRN PRN XX WOUND CARE; Start 05/09/18 at 17:00 Spironolactone (Aldactone) 50 mg DAILY GTB Last administered on 06/25/18 09:36; Admin Dose 50 MG; Start 05/21/18 at 09:00 Famotidine (Pepcid) 20 mg DAILY PEG Last administered on 06/25/18 09:37; Admin Dose 20 MG; Start 05/23/18 at 09:00 Morphine Sulfate (morphine) 6 mg Q4H PRN PEG SEVERE PAIN LEVEL 7-10 Last administered on 06/25/18 09:34; Admin Dose 6 MG; Start 05/22/18 at 17:00 Albumin Human 100 ml @ 100 mls/hr DURING DIALYSIS PRN IV hypotension on hd Last administered on 05/29/18 14:49; Admin Dose 100 MLS/HR; Start 05/27/18 at 07:30 Cholestyramine Resin (Questran Light) 4 gm 0600,1200,1800,2300 PO Last administered on 06/25/18 05:19; Admin Dose 4 GM; Start 05/27/18 at 18:00 Lorazepam (Ativan) 0.5 mg Q4H PRN IV ANXIETY Last administered on 06/22/18 18:11; Admin Dose 0.5 MG; Start 05/30/18 at 12:00 Acetaminophen (Tylenol Tab) 650 mg Q4H PRN PO MILD PAIN(1-3)OR ELEVATED TEMP Last administered on 06/10/18 21:44; Admin Dose 650 MG; Start 05/31/18 at 13:00 Metoclopramide HCl (Reglan) 5 mg Q6 IV Last administered on 06/25/18 05:19; Admin Dose 5 MG; Start 05/31/18 at 13:00 Collagenase (Santyl) 1 applic DAILY TOP Last administered on 06/25/18 09:37; Admin Dose 1 APPLIC; Start 06/01/18 at 09:00 Clonidine (Catapres) 0.1 mg Q6H PRN PO ELEVATED BLOOD PRESSURE Last administered on 06/17/18 05:59; Admin Dose 0.1 MG; Start 06/03/18 at 03:30 Bumetanide (Bumex) 1 mg BID DIURETICS GTB Last administered on 06/25/18 05:19; Admin Dose 1 MG; Start 06/11/18 at 18:00 Amiodarone HCl (Cordarone) 200 mg Q12 PO Last administered on 06/25/18 09:36; Admin Dose 200 MG; Start 06/12/18 at 21:00 Collagenase (Santyl) 1 applic PRN PRN TOP WHEN SOILED; Start 06/13/18 at 01:00 Nystatin (Nystatin Powder) 1 applic BID TOP Last administered on 06/25/18 09:50; Admin Dose 1 APPLIC; Start 06/13/18 at 14:00 Vancomycin HCl (Vancomycin Oral Syringe) 250 mg DAILY GTB Last administered on 06/25/18 09:49; Admin Dose 250 MG; Start 06/22/18 at 09:00; Stop 06/29/18 at 08:59 Vancomycin HCl (Vancomycin Oral Syringe) 250 mg Q48H GTB ; Start 06/29/18 at 14:00; Stop 07/06/18 at 13:59 Epoetin Zen-epbx (RETACRIT(esrd)) 20,000 unit Tu@1700 SC Last administered on 06/23/18 17:41; Admin Dose 20,000 UNIT; Start 06/16/18 at 18:30 Miscellaneous Information (*Order Clarification Bulletin) MEDICATION REQUIRES CLARIFICATION:PLE... Q8H XX Last administered on 06/22/18 23:27; Admin Dose 1 EA; Start 06/20/18 at 09:30 Ferric Sodium Gluconate Complex 125 mg/Sodium Chloride 110 ml @ 110 mls/hr DAILY@1300 IVPB Last administered on 06/24/18 13:15; Admin Dose 110 MLS/HR; Start 06/23/18 at 13:00; Stop 06/27/18 at 13:59 Amlodipine Besylate (Norvasc) 2.5 mg DAILY PO Last administered on 06/25/18 09:35; Admin Dose 2.5 MG; Start 06/25/18 at 09:00 Metoprolol Tartrate (Lopressor) 75 mg BID GTB Last administered on 06/25/18 09:35; Admin Dose 75 MG; Start 06/24/18 at 21:00 SHAHEEN GAMBOA June 25, 2018 13:26
[2018-06-25] MEDS: SOD FERRIC GLUC COMPLX 125 MG in SOD CHLORIDE 0.9% 100 ML IVPB SCH (13:38)
--- NOTE | 2018-06-25 15:51 | PN ---
Date/Time of Note Date/Time of Note DATE: 06/25/18 TIME: 15:48 Assessment/Plan VTE [place] [facility] [place]: 10 [place] [facility] [place] Yes Pharmacological prophylaxis: NA/contraindicated Pharm contraindication: bleeding, thrombocytopenia Lines/Catheters [facility] Central line still needed: Yes Urinary Cath still in place: Yes Reason Cath still needed: urinary retention Assessment/Plan Hospital Course Acute events over night, patient is awake alert, communicative, asking for p.o. diet however patient continues to be on full ventilatory support. Pending placement to subacute. Per case management meeting today in the morning no placement yet. Assessment/Plan -MDR Klebsiella urinary tract infection, completed treatment with amikacin. Dr. Walton is following in infectious consultation. -Atrial fibrillation was rapid ventricular response, patient remains in sinus rhythm continue metoprolol and amiodarone. Dr. Scanlon is following in cardiolo gy consultation. -S/p septic shock secondary to urinary tract infection, anterior neck soft tissue infection, and C. difficile colitis. -C-diff colitis, continue G-tube Vanco at the taper doses, -Acute respiratory failure requiring intubation and ventilatory support. Dr. Lambert is following in pulmonology consultation. -S/p tracheostomy on 05/29/18. -Acute kidney injury on chronic kidney disease. Started on HD this admission. Dr. Mckeon is following in nephrology consultation. -Anemia of chronic inflammation, stool for OB is negative, status post blood transfusion. Continue Epogen. -Metabolic acidosis, resolved. -Acute diastolic congestive heart failure. -Paroxysmal atrial fibrillation -COPD -Dysphagia with PEG. -G-tube mild malfunction, changed by GI Dr. Carolina is following in gastroenterology consultation. -Obesity Further recommendations based on clinical course. Plan of care discussed with Dr. Eisenberg. Result Diagram: 06/25/18 0908 06/25/18 0908 Results 24hrs Laboratory Tests Test 06/25/18 09:08 White Blood Count 8.7 Red Blood Count 2.74 L Hemoglobin 9.2 L Hematocrit 29.0 L Mean Corpuscular Volume 105.8 H Mean Corpuscular Hemoglobin 33.6 H Mean Corpuscular Hemoglobin Concent 31.7 L Red Cell Distribution Width 24.6 H Platelet Count 330 Mean Platelet Volume 9.7 Immature Granulocytes % 0.500 H Neutrophils % 76.6 Lymphocytes % 9.7 L Monocytes % 7.5 Eosinophils % 5.5 Basophils % 0.2 Nucleated Red Blood Cells % 0.0 Immature Granulocytes # 0.040 H Neutrophils # 6.6 Lymphocytes # 0.8 Monocytes # 0.7 Eosinophils # 0.5 Basophils # 0.0 Nucleated Red Blood Cells # 0.0 Sodium Level 135 Potassium Level 3.8 Chloride Level 105 Carbon Dioxide Level 19 L Anion Gap 11 Blood Urea Nitrogen 57 H Creatinine 1.40 H Est Glomerular Filtrat Rate mL/min Glucose Level 105 Calcium Level 9.3 Exam/Review of Systems Exam Vitals Vital Signs Date Temp Pulse Resp B/P (MAP) Pulse Ox O2 O2 Flow FiO2 Time Delivery Rate 06/25/18 74 24 97 30 15:08 06/25/18 97.5 125/63 Mechanical 11:54 (83) Ventilator Intake and Output 06/24/18 06/24/18 06/25/18 1515:00 23:00 07:00 IntakeIntake Total 500 ml OutputOutput Total 1200 ml 600 ml BalanceBalance -1200 ml -100 ml Exam Constitutional: alert, oriented Neck: other (Tracheostomy) Respiratory: diminished breath sounds Cardiovascular: regular rate and rhythm Gastrointestinal: soft, non-tender, other (G-tube) Extremities: normal pulses Neurological: nl mental status Results Results 24hrs Laboratory Tests Test 06/25/18 09:08 White Blood Count 8.7 Red Blood Count 2.74 L Hemoglobin 9.2 L Hematocrit 29.0 L Mean Corpuscular Volume 105.8 H Mean Corpuscular Hemoglobin 33.6 H Mean Corpuscular Hemoglobin Concent 31.7 L Red Cell Distribution Width 24.6 H Platelet Count 330 Mean Platelet Volume 9.7 Immature Granulocytes % 0.500 H Neutrophils % 76.6 Lymphocytes % 9.7 L Monocytes % 7.5 Eosinophils % 5.5 Basophils % 0.2 Nucleated Red Blood Cells % 0.0 Immature Granulocytes # 0.040 H Neutrophils # 6.6 Lymphocytes # 0.8 Monocytes # 0.7 Eosinophils # 0.5 Basophils # 0.0 Nucleated Red Blood Cells # 0.0 Sodium Level 135 Potassium Level 3.8 Chloride Level 105 Carbon Dioxide Level 19 L Anion Gap 11 Blood Urea Nitrogen 57 H Creatinine 1.40 H Est Glomerular Filtrat Rate mL/min Glucose Level 105 Calcium Level 9.3 Medications Medication Current Medications IV Flush (NS 10 ml) 10 ml PRN IV ; Start 05/06/18 at 20:30 Ascorbic Acid (Vitamin C) 500 mg DAILY GTB Last administered on 06/25/18 09:34; Admin Dose 500 MG; Start 05/07/18 at 09:00 Albuterol/ Ipratropium (Duoneb) 3 ml Q2H RESP THERAPY PRN HHN SHORTNESS OF BREATH Last administered on 06/22/18 11:03; Admin Dose 3 ML; Start 05/06/18 at 23:30 Zinc Sulfate (Zinc Sulfate) 220 mg DAILY GTB Last administered on 06/25/18 09:34; Admin Dose 220 MG; Start 05/07/18 at 09:00 Ondansetron HCl (Zofran Tab) 4 mg Q6H PRN GTB NAUSEA AND/OR VOMITING Last administered on 05/31/18 16:47; Admin Dose 4 MG; Start 05/07/18 at 00:15 Multivitamins (Multivitamin) 30 ml DAILY GTB Last administered on 06/25/18 09:39; Admin Dose 30 ML; Start 05/07/18 at 09:00 Miscellaneous Information (Pending [facility] Order For Wound Care) This patient goldman... PRN PRN XX WOUND CARE; Start 05/09/18 at 17:00 Spironolactone (Aldactone) 50 mg DAILY GTB Last administered on 06/25/18 09:36; Admin Dose 50 MG; Start 05/21/18 at 09:00 Famotidine (Pepcid) 20 mg DAILY PEG Last administered on 06/25/18 09:37; Admin Dose 20 MG; Start 05/23/18 at 09:00 Morphine Sulfate (morphine) 6 mg Q4H PRN PEG SEVERE PAIN LEVEL 7-10 Last administered on 06/25/18 09:34; Admin Dose 6 MG; Start 05/22/18 at 17:00 Albumin Human 100 ml @ 100 mls/hr DURING DIALYSIS PRN IV hypotension on hd Last administered on 05/29/18 14:49; Admin Dose 100 MLS/HR; Start 05/27/18 at 07:30 Cholestyramine Resin (Questran Light) 4 gm 0600,1200,1800,2300 PO Last administered on 06/25/18 13:38; Admin Dose 4 GM; Start 05/27/18 at 18:00 Lorazepam (Ativan) 0.5 mg Q4H PRN IV ANXIETY Last administered on 06/22/18 18:11; Admin Dose 0.5 MG; Start 05/30/18 at 12:00 Acetaminophen (Tylenol Tab) 650 mg Q4H PRN PO MILD PAIN(1-3)OR ELEVATED TEMP Last administered on 06/10/18 21:44; Admin Dose 650 MG; Start 05/31/18 at 13:00 Metoclopramide HCl (Reglan) 5 mg Q6 IV Last administered on 06/25/18 13:38; Admin Dose 5 MG; Start 05/31/18 at 13:00 Collagenase (Santyl) 1 applic DAILY TOP Last administered on 06/25/18 09:37; Admin Dose 1 APPLIC; Start 06/01/18 at 09:00 Clonidine (Catapres) 0.1 mg Q6H PRN PO ELEVATED BLOOD PRESSURE Last administered on 06/17/18 05:59; Admin Dose 0.1 MG; Start 06/03/18 at 03:30 Bumetanide (Bumex) 1 mg BID DIURETICS GTB Last administered on 06/25/18 05:19; Admin Dose 1 MG; Start 06/11/18 at 18:00 Amiodarone HCl (Cordarone) 200 mg Q12 PO Last administered on 06/25/18 09:36; Admin Dose 200 MG; Start 06/12/18 at 21:00 Collagenase (Santyl) 1 applic PRN PRN TOP WHEN SOILED; Start 06/13/18 at 01:00 Nystatin (Nystatin Powder) 1 applic BID TOP Last administered on 06/25/18 09:50; Admin Dose 1 APPLIC; Start 06/13/18 at 14:00 Vancomycin HCl (Vancomycin Oral Syringe) 250 mg DAILY GTB Last administered on 06/25/18 09:49; Admin Dose 250 MG; Start 06/22/18 at 09:00; Stop 06/29/18 at 08:59 Vancomycin HCl (Vancomycin Oral Syringe) 250 mg Q48H GTB ; Start 06/29/18 at 14:00; Stop 07/06/18 at 13:59 Epoetin Zen-epbx (RETACRIT(esrd)) 20,000 unit Tu@1700 SC Last administered on 06/23/18 17:41; Admin Dose 20,000 UNIT; Start 06/16/18 at 18:30 Miscellaneous Information (*Order Clarification Bulletin) MEDICATION REQUIRES CLARIFICATION:PLE... Q8H XX Last administered on 06/22/18 23:27; Admin Dose 1 EA; Start 06/20/18 at 09:30 Ferric Sodium Gluconate Complex 125 mg/Sodium Chloride 110 ml @ 110 mls/hr DAILY@1300 IVPB Last administered on 06/25/18 13:38; Admin Dose 110 MLS/HR; Start 06/23/18 at 13:00; Stop 06/27/18 at 13:59 Amlodipine Besylate (Norvasc) 2.5 mg DAILY PO Last administered on 06/25/18 09:35; Admin Dose 2.5 MG; Start 06/25/18 at 09:00 Metoprolol Tartrate (Lopressor) 75 mg BID GTB Last administered on 06/25/18 09:35; Admin Dose 75 MG; Start 06/24/18 at 21:00 GRISELDA DENNIS June 25, 2018 15:51
[2018-06-26] VITALS (23 sets, daily range): BP systolic 116–151; BP diastolic 54–86; PULSE 67–76; RESP 18–27
[2018-06-26] MEDS: CHOLESTYRAMINE (LIGHT) 4 GM PACKET PO SCH ×3 (05:43→17:38)
[2018-06-26] MEDS: BUMETANIDE 1 MG TAB GTB SCH ×2 (05:43→17:38)
[2018-06-26] MEDS: METOCLOPRAMIDE 10 MG INJ IV SCH ×3 (05:43→17:38)
--- NOTE | 2018-06-26 08:12 | PN ---
DATE: 06/26/2018 SUBJECTIVE: The patient is stable. No events overnight. No fever, chills, nausea, vomiting. OBJECTIVE: VITAL SIGNS: Blood pressure is 125/71, pulse 71, respiration is 19, temperature 98.3. HEENT: Head is normocephalic. NECK: Supple. HEART: Regular rate. LUNGS: Show diminished breath sounds at the base. ABDOMEN: Soft, nontender to palpation without rebound or guarding. EXTREMITIES: Negative for clubbing, cyanosis. Trace edema. DERMATOLOGIC: No rashes. MUSCULOSKELETAL: No joint effusion. NEUROLOGIC: No change in exam. MEDICATIONS: Reviewed. LABORATORY DATA: Has been reviewed. ASSESSMENT AND PLAN: 1. Nonoliguric acute kidney injury on top of chronic kidney disease stage IIIB/IV with previous base line creatinine 2.0 mg/dL. Etiology of acute kidney injury secondary to acute tubular necrosis. The patient is status post hemodialysis. Renal function stabilized. Continue current treatment plans, supportive care, renally dose all medications. 2. Volume overload, improving. Continue Bumex. Continue to give intermittent metolazone as needed. 3. Hyponatremia, improved. Free water flushes were adjusted. Continue to monitor. 4. Anemia. Monitor hemoglobin and hematocrit levels. The patient is completing course of IV Ferrle cit. Will give intermittent Epogen as needed. 5. Mineral bone disorder, monitor calcium and phosphorus levels. 6. Ventilator-dependent respiratory failure. Vent settings and arterial blood gas was reviewed. Co ntinue to monitor. 7. Sepsis, status post shock. The patient is completing antibiotic course. 8. Lower extremity wounds. Continue wound care. 9. Dysphagia. Continue tube feeding. 10. Encephalopathy. Continue to monitor. Dictated By: JEANA BANSAL DO NR/NTS Conf#: [id number] DID#: [id number] CC: ROLAND GIRON MD;*EndCC*
[2018-06-26] MEDS: ZINC SULFATE 220 MG CAP GTB SCH (09:03)
[2018-06-26] MEDS: ASCORBIC ACID 500 MG TAB GTB SCH (09:03)
[2018-06-26] MEDS: FAMOTIDINE 20 MG TAB PEG SCH (09:04)
[2018-06-26] MEDS: METOPROLOL 25 MG TAB GTB SCH ×2 (09:04→20:50)
[2018-06-26] MEDS: SPIRONOLACTONE 25 MG TAB GTB SCH (09:05)
[2018-06-26] MEDS: AMIODARONE 200 MG TAB PO SCH ×2 (09:05→20:49)
[2018-06-26] MEDS: AMLODIPINE 2.5 MG TAB PO SCH (09:05)
[2018-06-26] MEDS: MULTIVITAMINS 30 ML CUP GTB SCH (09:10)
[2018-06-26] MEDS: VANCOMYCIN HCL 250 MG/5ML POSYG GTB SCH (09:10)
[2018-06-26] MEDS: BALSAM PERU/CASTOR OIL 60 GM TUBE TOP SCH ×2 (09:11→20:50)
[2018-06-26] MEDS: NYSTATIN 30 GM POWDER BTL TOP SCH ×2 (09:11→20:50)
[2018-06-26] MEDS: COLLAGENASE 5 GM (UD JAR) TOP SCH (09:11)
--- NOTE | 2018-06-26 10:51 | PN ---
Date/Time of Note Date/Time of Note DATE: 06/26/18 TIME: 10:49 Assessment/Plan VTE Prophylaxis Risk score (from Ns)>0 risk: 5 SCD applied (from [facility]): Yes SCD contraindicated: other Pharmacological prophylaxis: other Pharm contraindication: other Lines/Catheters IV Catheter Type (from [facility]): PICC Line Central line still needed: Yes Urinary Cath still in place: Yes Reason Cath still needed: urinary retention Assessment/Plan Assessment/Plan - MDR Klebsiella urinary tract infection, completed treatment with amikacin. Dr. Walton is following in infectious consultation. - Hypokalemia- resolved - Acute abdominal pain - CT showed Air-fluid levels are seen throughout the small bowel and colon. Consider mild ileus versus enterocolitis. - NPO/ IVF - per GI - cont to monitor -Atrial fibrillation was rapid ventricular response, s/p amiodarone drip. Rate is well controlled on p.o. amiodarone and metoprolol. - Dr. Scanlon is following in cardiology consultation. -Septic shock secondary to urinary tract infection, anterior neck soft tissue infection, and C. difficile colitis, resolving. - Continue antibiotics per ID. Dr. Brian Doyle is following in infection disease consultation. -Acute respiratory failure requiring intubation and ventilatory support. - Dr. Lambert is following in pulmonology consultation. -S/p tracheostomy on 05/29/18. -Acute kidney injury on chronic kidney disease. Started on HD this admission. - Dr. Mckeon is following in nephrology consultation. -Anemia of chronic inflammation, stool for OB is negative, status post blood t ransfusion. Continue Epogen. -Metabolic acidosis, resolved. -Acute diastolic congestive heart failure. -Paroxysmal atrial fibrillation -COPD -Dysphagia with PEG. -G-tube mild malfunction, changed by GI Dr. Carolina is following in gastroenterology consultation. -Obesity- weight management Patient is seen in collaboration with Dr Eisenberg. staff. Further recommendations based on clinical course. Result Diagram: 06/26/18 0650 06/26/18 0649 Results 24hrs Laboratory Tests Test 06/26/18 06:49 06/26/18 06:50 06/26/18 07:28 Sodium Level 135 Potassium Level 3.8 Chloride Level 104 Carbon Dioxide Level 21 Anion Gap 10 Blood Urea Nitrogen 61 H Creatinine 1.50 H Est Glomerular Filtrat Rate mL/min Glucose Level 101 Calcium Level 9.8 Phosphorus Level 4.1 Magnesium Level 1.6 L White Blood Count 10.3 Red Blood Count 2.83 L Hemoglobin 9.2 L Hematocrit 29.6 L Mean Corpuscular Volume 104.6 H Mean Corpuscular Hemoglobin 32.5 Mean Corpuscular 31.1 L Hemoglobin Concent Red Cell Distribution Width 23.9 H Platelet Count 349 Mean Platelet Volume 9.7 Immature Granulocytes % 0.400 Neutrophils % 81.9 H Lymphocytes % 7.1 L Monocytes % 6.0 Eosinophils % 4.3 Basophils % 0.3 Nucleated Red Blood Cells % 0.0 Immature Granulocytes # 0.040 H Neutrophils # 8.4 H Lymphocytes # 0.7 L Monocytes # 0.6 Eosinophils # 0.4 Basophils # 0.0 Nucleated Red Blood Cells # 0.0 Lab Scanned Report BLOOD TRANSFUSION Subjective 24 Hr Interval Summary Free Text/Dictation Leukocytosis; afebrile CR 1.50 today refuses ADLs at times no new events reported last night dw staff Subjective hx not possible: pt non-verbal Constitutional: requiring IVF Exam/Review of Systems Exam Vitals Vital Signs Date Temp Pulse Resp B/P (MAP) Pulse Ox O2 O2 Flow FiO2 Time Delivery Rate 06/26/18 71 22 98 30 10:40 06/26/18 98.3 125/71 07:33 (89) 06/25/18 Mechanical 16:06 Ventilator Intake and Output 06/25/18 06/25/18 06/26/18 1515:00 23:00 07:00 IntakeIntake Total 100 ml 600 ml 700 ml OutputOutput Total 900 ml 750 ml BalanceBalance 100 ml -300 ml -50 ml Constitutional: alert, non-verbal Psych: nl mood/affect Eyes: nl lids ENMT: nl external ears & nose Respiratory: clear to auscultation, other Cardiovascular: nl pulses, other Gastrointestinal: soft, other Musculoskeletal: muscle weakness Extremities: normal pulses Neurological: other Results Results 24hrs Laboratory Tests Test 06/26/18 06:49 06/26/18 06:50 06/26/18 07:28 Sodium Level 135 Potassium Level 3.8 Chloride Level 104 Carbon Dioxide Level 21 Anion Gap 10 Blood Urea Nitrogen 61 H Creatinine 1.50 H Est Glomerular Filtrat Rate mL/min Glucose Level 101 Calcium Level 9.8 Phosphorus Level 4.1 Magnesium Level 1.6 L White Blood Count 10.3 Red Blood Count 2.83 L Hemoglobin 9.2 L Hematocrit 29.6 L Mean Corpuscular Volume 104.6 H Mean Corpuscular Hemoglobin 32.5 Mean Corpuscular 31.1 L Hemoglobin Concent Red Cell Distribution Width 23.9 H Platelet Count 349 Mean Platelet Volume 9.7 Immature Granulocytes % 0.400 Neutrophils % 81.9 H Lymphocytes % 7.1 L Monocytes % 6.0 Eosinophils % 4.3 Basophils % 0.3 Nucleated Red Blood Cells % 0.0 Immature Granulocytes # 0.040 H Neutrophils # 8.4 H Lymphocytes # 0.7 L Monocytes # 0.6 Eosinophils # 0.4 Basophils # 0.0 Nucleated Red Blood Cells # 0.0 Lab Scanned Report BLOOD TRANSFUSION Medications Medication Current Medications IV Flush (NS 10 ml) 10 ml PRN IV ; Start 05/06/18 at 20:30 Ascorbic Acid (Vitamin C) 500 mg DAILY GTB Last administered on 06/26/18 09:03; Admin Dose 500 MG; Start 05/07/18 at 09:00 Albuterol/ Ipratropium (Duoneb) 3 ml Q2H RESP THERAPY PRN HHN SHORTNESS OF BREATH Last administered on 06/22/18 11:03; Admin Dose 3 ML; Start 05/06/18 at 23:30 Zinc Sulfate (Zinc Sulfate) 220 mg DAILY GTB Last administered on 06/26/18 09:03; Admin Dose 220 MG; Start 05/07/18 at 09:00 Ondansetron HCl (Zofran Tab) 4 mg Q6H PRN GTB NAUSEA AND/OR VOMITING Last administered on 05/31/18at 16:47; Admin Dose 4 MG; Start 05/07/18 at 00:15 Multivitamins (Multivitamin) 30 ml DAILY GTB Last administered on 06/26/18 09:10; Admin Dose 30 ML; Start 05/07/18 at 09:00 Miscellaneous Information (Pending Santyl Order For Wound Care) This patient goldman... PRN PRN XX WOUND CARE; Start 05/09/18 at 17:00 Spironolactone (Aldactone) 50 mg DAILY GTB Last administered on 06/26/18 09:05; Admin Dose 50 MG; Start 05/21/18 at 09:00 Famotidine (Pepcid) 20 mg DAILY PEG Last administered on 06/26/18 09:04; Admin Dose 20 MG; Start 05/23/18 at 09:00 Morphine Sulfate (morphine) 6 mg Q4H PRN PEG SEVERE PAIN LEVEL 7-10 Last administered on 06/25/18 22:21; Admin Dose 6 MG; Start 05/22/18 at 17:00 Albumin Human 100 ml @ 100 mls/hr DURING DIALYSIS PRN IV hypotension on hd Last administered on 05/29/18 14:49; Admin Dose 100 MLS/HR; Start 05/27/18 at 07:30 Cholestyramine Resin (Questran Light) 4 gm 0600,1200,1800,2300 PO Last administered on 06/26/18 05:43; Admin Dose 4 GM; Start 05/27/18 at 18:00 Lorazepam (Ativan) 0.5 mg Q4H PRN IV ANXIETY Last administered on 06/22/18 18:11; Admin Dose 0.5 MG; Start 05/30/18 at 12:00 Acetaminophen (Tylenol Tab) 650 mg Q4H PRN PO MILD PAIN(1-3)OR ELEVATED TEMP Last administered on 06/10/18 21:44; Admin Dose 650 MG; Start 05/31/18 at 13:00 Metoclopramide HCl (Reglan) 5 mg Q6 IV Last administered on 06/26/18 05:43; Admin Dose 5 MG; Start 05/31/18 at 13:00 Collagenase (Santyl) 1 applic DAILY TOP Last administered on 06/26/18 09:11; Admin Dose 1 APPLIC; Start 06/01/18 at 09:00 Clonidine (Catapres) 0.1 mg Q6H PRN PO ELEVATED BLOOD PRESSURE Last admi nistered on 06/17/18 05:59; Admin Dose 0.1 MG; Start 06/03/18 at 03:30 Bumetanide (Bumex) 1 mg BID DIURETICS GTB Last administered on 06/26/18 05:43; Admin Dose 1 MG; Start 06/11/18 at 18:00 Amiodarone HCl (Cordarone) 200 mg Q12 PO Last administered on 06/26/18 09:05; Admin Dose 200 MG; Start 06/12/18 at 21:00 Collagenase (Santyl) 1 applic PRN PRN TOP WHEN SOILED; Start 06/13/18 at 01:00 Nystatin (Nystatin Powder) 1 applic BID TOP Last administered on 06/26/18 09:11; Admin Dose 1 APPLIC; Start 06/13/18 at 14:00 Vancomycin HCl (Vancomycin Oral Syringe) 250 mg DAILY GTB Last administered on 06/26/18 09:10; Admin Dose 250 MG; Start 06/22/18 at 09:00; Stop 06/29/18 at 08:59 Vancomycin HCl (Vancomycin Oral Syringe) 250 mg Q48H GTB ; Start 06/29/18 at 14:00; Stop 07/06/18 at 13:59 Epoetin Zen-epbx (RETACRIT(esrd)) 20,000 unit Tu@1700 SC Last administered on 06/23/18 17:41; Admin Dose 20,000 UNIT; Start 06/16/18 at 18:30 Miscellaneous Information (*Order Clarification Bulletin) MEDICATION REQUIRES CLARIFICATION:PLE... Q8H XX Last administered on 06/22/18 23:27; Admin Dose 1 E A; Start 06/20/18 at 09:30 Ferric Sodium Gluconate Complex 125 mg/Sodium Chloride 110 ml @ 110 mls/hr DAILY@1300 IVPB Last administered on 06/25/18 13:38; Admin Dose 110 MLS/HR; Start 06/23/18 at 13:00; Stop 06/27/18 at 13:59 Amlodipine Besylate (Norvasc) 2.5 mg DAILY PO Last administered on 06/26/18 09:05; Admin Dose 2.5 MG; Start 06/25/18 at 09:00 Metoprolol Tartrate (Lopressor) 75 mg BID GTB Last administered on 06/26/18 09:04; Admin Dose 75 MG; Start 06/24/18 at 21:00 Miscellaneous Information 1 ea NOTE XX ; Start 06/26/18 at 08:00 KERON MORAN June 26, 2018 10:51
--- NOTE | 2018-06-26 13:17 | CONS ---
Assessment/Plan Assessment/Plan Hospital Course (Demo Recall) Septic as well as hemorrhagic shock-resolved Acute respiratory failure status post intubation and repeat tracheostomy Acute blood loss anemia History of respiratory failure status post decannulation Preserved ejection fraction echocardiogram 05/10/2018 Paroxysmal atrial fibrillation Acute kidney injury History of hypertension-now labile BP -Patient with paroxysmal atrial fibrillation, has remained sinus -Continue beta-tin and titrate as tolerated -Continue amiodarone as tolerated -Vent management as per pulmonary -Fluid management and electrolytes as per renal -Antibiotics as per infectious disease -No anticoagulation given recurrent anemia requiring blood transfusions Consultation Date/Type/Reason Admit Date/Time May 06, 2018 at 17:38 Initial Consult Date 05/10/18 Type of Consult Cardiology Requesting Provider: ROLAND GIRON MD Date/Time of Note DATE: 06/26/18 TIME: 13:16 24 HR Interval Summary Free Text/Dictation Patient seen and examined. No shortness of breath or palpitations Exam/Review of Systems Vital Signs Vitals Vital Signs Date Temp Pulse Resp B/P (MAP) Pulse Ox O2 O2 Flow FiO2 Time Delivery Rate 06/26/18 98.4 68 18 116/54 100 11:46 (74) 06/26/18 30 11:10 06/25/18 Mechanical 16:06 Ventilator Intake and Output 06/25/18 06/25/18 06/26/18 1515:00 23:00 07:00 IntakeIntake Total 100 ml 600 ml 700 ml OutputOutput Total 900 ml 750 ml BalanceBalance 100 ml -300 ml -50 ml Exam Constitutional: alert (Following commands, no apparent distress) Head: normocephalic Respiratory: other (Coarse breath sounds bilaterally, no wheezing) Cardiovascular: regular rate and rhythm (S1-S2 heard) Gastrointestinal: soft, non-tender, bowel sounds Extremities: edema Labs Result Diagram: 06/26/18 0650 06/26/18 0649 Results 24hrs Laboratory Tests Test 06/26/18 06:49 06/26/18 06:50 06/26/18 07:28 Sodium Level 135 Potassium Level 3.8 Chloride Level 104 Carbon Dioxide Level 21 Anion Gap 10 Blood Urea Nitrogen 61 H Creatinine 1.50 H Est Glomerular Filtrat Rate mL/min Glucose Level 101 Calcium Level 9.8 Phosphorus Level 4.1 Magnesium Level 1.6 L White Blood Count 10.3 Red Blood Count 2.83 L Hemoglobin 9.2 L Hematocrit 29.6 L Mean Corpuscular Volume 104.6 H Mean Corpuscular Hemoglobin 32.5 Mean Corpuscular 31.1 L Hemoglobin Concent Red Cell Distribution Width 23.9 H Platelet Count 349 Mean Platelet Volume 9.7 Immature Granulocytes % 0.400 Neutrophils % 81.9 H Lymphocytes % 7.1 L Monocytes % 6.0 Eosinophils % 4.3 Basophils % 0.3 Nucleated Red Blood Cells % 0.0 Immature Granulocytes # 0.040 H Neutrophils # 8.4 H Lymphocytes # 0.7 L Monocytes # 0.6 Eosinophils # 0.4 Basophils # 0.0 Nucleated Red Blood Cells # 0.0 Lab Scanned Report BLOOD TRANSFUSION Medications Medications Current Medications IV Flush (NS 10 ml) 10 ml PRN IV ; Start 05/06/18 at 20:30 Ascorbic Acid (Vitamin C) 500 mg DAILY GTB Last administered on 06/26/18 09:03; Admin Dose 500 MG; Start 05/07/18 at 09:00 Albuterol/ Ipratropium (Duoneb) 3 ml Q2H RESP THERAPY PRN HHN SHORTNESS OF BREATH Last administered on 06/22/18 11:03; Admin Dose 3 ML; Start 05/06/18 at 23:30 Zinc Sulfate (Zinc Sulfate) 220 mg DAILY GTB Last administered on 06/26/18 09:03; Admin Dose 220 MG; Start 05/07/18 at 09:00 Ondansetron HCl (Zofran Tab) 4 mg Q6H PRN GTB NAUSEA AND/OR VOMITING Last administered on 05/31/18 16:47; Admin Dose 4 MG; Start 05/07/18 at 00:15 Multivitamins (Multivitamin) 30 ml DAILY GTB Last administered on 06/26/18 09:10; Admin Dose 30 ML; Start 05/07/18 at 09:00 [facility] This patient goldman... PRN PRN XX WOUND CARE; Start 05/09/18 at 17:00 Spironolactone (Aldactone) 50 mg DAILY GTB Last administered on 06/26/18 09:05; Admin Dose 50 MG; Start 05/21/18 at 09:00 Famotidine (Pepcid) 20 mg DAILY PEG Last administered on 06/26/18 09:04; Admin Dose 20 MG; Start 05/23/18 at 09:00 Morphine Sulfate (morphine) 6 mg Q4H PRN PEG SEVERE PAIN LEVEL 7-10 Last administered on 06/25/18 22:21; Admin Dose 6 MG; Start 05/22/18 at 17:00 Albumin Human 100 ml @ 100 mls/hr DURING DIALYSIS PRN IV hypotension on hd Last administered on 05/29/18 14:49; Admin Dose 100 MLS/HR; Start 05/27/18 at 07:30 Cholestyramine Resin (Questran Light) 4 gm 0600,1200,1800,2300 PO Last administered on 06/26/18 12:35; Admin Dose 4 GM; Start 05/27/18 at 18:00 Lorazepam (Ativan) 0.5 mg Q4H PRN IV ANXIETY Last administered on 06/22/18 18:11; Admin Dose 0.5 MG; Start 05/30/18 at 12:00 Acetaminophen (Tylenol Tab) 650 mg Q4H PRN PO MILD PAIN(1-3)OR ELEVATED TEMP Last administered on 06/10/18 21:44; Admin Dose 650 MG; Start 05/31/18 at 13:00 Metoclopramide HCl (Reglan) 5 mg Q6 IV Last administered on 06/26/18 12:35; Admin Dose 5 MG; Start 05/31/18 at 13:00 Collagenase (Santyl) 1 applic DAILY TOP Last administered on 06/26/18 09:11; Admin Dose 1 APPLIC; Start 06/01/18 at 09:00 Clonidine (Catapres) 0.1 mg Q6H PRN PO ELEVATED BLOOD PRESSURE Last administered on 06/17/18 05:59; Admin Dose 0.1 MG; Start 06/03/18 at 03:30 Bumetanide (Bumex) 1 mg BID DIURETICS GTB Last administered on 06/26/18 05:43; Admin Dose 1 MG; Start 06/11/18 at 18:00 Amiodarone HCl (Cordarone) 200 mg Q12 PO Last administered on 06/26/18 09:05; Admin Dose 200 MG; Start 06/12/18 at 21:00 Collagenase (Santyl) 1 applic PRN PRN TOP WHEN SOILED; Start 06/13/18 at 01:00 Nystatin (Nystatin Powder) 1 applic BID TOP Last administered on 06/26/18 09:11; Admin Dose 1 APPLIC; Start 06/13/18 at 14:00 Vancomycin HCl (Vancomycin Oral Syringe) 250 mg DAILY GTB Last administered on 06/26/18 09:10; Admin Dose 250 MG; Start 06/22/18 at 09:00; Stop 06/29/18 at 08:59 Vancomycin HCl (Vancomycin Oral Syringe) 250 mg Q48H GTB ; Start 06/29/18 at 14:00; Stop 07/06/18 at 13:59 Epoetin Zen-epbx (RETACRIT(esrd)) 20,000 unit Tu@1700 SC Last administered on 06/23/18 17:41; Admin Dose 20,000 UNIT; Start 06/16/18 at 18:30 Miscellaneous Information (*Order Clarification Bulletin) MEDICATION REQUIRES CLARIFICATION:PLE... Q8H XX Last administered on 06/22/18 23:27; Admin Dose 1 EA; Start 06/20/18 at 09:30 Ferric Sodium Gluconate Complex 125 mg/Sodium Chloride 110 ml @ 110 mls/hr DAILY@1300 IVPB Last administered on 06/25/18 13:38; Admin Dose 110 MLS/HR; Start 06/23/18 at 13:00; Stop 06/27/18 at 13:59 Amlodipine Besylate (Norvasc) 2.5 mg DAILY PO Last administered on 06/26/18 09:05; Admin Dose 2.5 MG; Start 06/25/18 at 09:00 Metoprolol Tartrate (Lopressor) 75 mg BID GTB Last administered on 06/26/18 09:04; Admin Dose 75 MG; Start 06/24/18 at 21:00 Miscellaneous Information 1 ea NOTE XX ; Start 06/26/18 at 08:00 Evangelista Scanlon DO June 26, 2018 13:17
[2018-06-26] MEDS: SOD FERRIC GLUC COMPLX 125 MG in SOD CHLORIDE 0.9% 100 ML IVPB SCH (13:39)
--- NOTE | 2018-06-26 13:40 | CONS ---
Assessment/Plan Assessment/Plan Hospital Course (Demo Recall) Case will be coordinated with JADE FAY via [employer] texting and phone call. I reviewed the emr as well and will be directing care shortly. Consultation Date/Type/Reason Admit Date/Time May 06, 2018 at 17:38 Initial Consult Date 05/10/18 Type of Consult ID Requesting Provider: ROLAND GIRON MD Date/Time of Note DATE: 06/26/18 TIME: 13:40 Exam/Review of Systems Exam Vitals Vital Signs Date Temp Pulse Resp B/P (MAP) Pulse Ox O2 O2 Flow FiO2 Time Delivery Rate 06/26/18 98.4 68 18 116/54 100 11:46 (74) 06/26/18 30 11:10 06/25/18 Mechanical 16:06 Ventilator Intake and Output 06/25/18 06/25/18 06/26/18 1515:00 23:00 07:00 IntakeIntake Total 100 ml 600 ml 700 ml OutputOutput Total 900 ml 750 ml BalanceBalance 100 ml -300 ml -50 ml Results Result Diagram: 06/26/18 0650 06/26/18 0649 Results 24hrs Laboratory Tests Test 06/26/18 06:49 06/26/18 06:50 06/26/18 07:28 Sodium Level 135 Potassium Level 3.8 Chloride Level 104 Carbon Dioxide Level 21 Anion Gap 10 Blood Urea Nitrogen 61 H Creatinine 1.50 H Est Glomerular Filtrat Rate mL/min Glucose Level 101 Calcium Level 9.8 Phosphorus Level 4.1 Magnesium Level 1.6 L White Blood Count 10.3 Red Blood Count 2.83 L Hemoglobin 9.2 L Hematocrit 29.6 L Mean Corpuscular Volume 104.6 H Mean Corpuscular Hemoglobin 32.5 Mean Corpuscular 31.1 L Hemoglobin Concent Red Cell Distribution Width 23.9 H Platelet Count 349 Mean Platelet Volume 9.7 Immature Granulocytes % 0.400 Neutrophils % 81.9 H Lymphocytes % 7.1 L Monocytes % 6.0 Eosinophils % 4.3 Basophils % 0.3 Nucleated Red Blood Cells % 0.0 Immature Granulocytes # 0.040 H Neutrophils # 8.4 H Lymphocytes # 0.7 L Monocytes # 0.6 Eosinophils # 0.4 Basophils # 0.0 Nucleated Red Blood Cells # 0.0 Lab Scanned Report BLOOD TRANSFUSION Medications Medication Current Medications IV Flush (NS 10 ml) 10 ml PRN IV ; Start 05/06/18 at 20:30 Ascorbic Acid (Vitamin C) 500 mg DAILY GTB Last administered on 06/26/18 09:03; Admin Dose 500 MG; Start 05/07/18 at 09:00 Albuterol/ Ipratropium (Duoneb) 3 ml Q2H RESP THERAPY PRN HHN SHORTNESS OF BREATH Last administered on 06/22/18 11:03; Admin Dose 3 ML; Start 05/06/18 at 23:30 Zinc Sulfate (Zinc Sulfate) 220 mg DAILY GTB Last administered on 06/26/18 09:03; Admin Dose 220 MG; Start 05/07/18 at 09:00 Ondansetron HCl (Zofran Tab) 4 mg Q6H PRN GTB NAUSEA AND/OR VOMITING Last administered on 05/31/18 16:47; Admin Dose 4 MG; Start 05/07/18 at 00:15 Multivitamins (Multivitamin) 30 ml DAILY GTB Last administered on 06/26/18 09:10; Admin Dose 30 ML; Start 05/07/18 at 09:00 Miscellaneous Information (Pending Santyl Order For Wound Care) This patient goldman... PRN PRN XX WOUND CARE; Start 05/09/18 at 17:00 Spironolactone (Aldactone) 50 mg DAILY GTB Last administered on 06/26/18 09:05; Admin Dose 50 MG; Start 05/21/18 at 09:00 Famotidine (Pepcid) 20 mg DAILY PEG Last administered on 06/26/18 09:04; Admin Dose 20 MG; Start 05/23/18 at 09:00 Morphine Sulfate (morphine) 6 mg Q4H PRN PEG SEVERE PAIN LEVEL 7-10 Last administered on 06/25/18 22:21; Admin Dose 6 MG; Start 05/22/18 at 17:00 Albumin Human 100 ml @ 100 mls/hr DURING DIALYSIS PRN IV hypotension on hd Last administered on 05/29/18 14:49; Admin Dose 100 MLS/HR; Start 05/27/18 at 07:30 Cholestyramine Resin (Questran Light) 4 gm 0600,1200,1800,2300 PO Last administered on 06/26/18 12:35; Admin Dose 4 GM; Start 05/27/18 at 18:00 Lorazepam (Ativan) 0.5 mg Q4H PRN IV ANXIETY Last administered on 06/22/18 18:11; Admin Dose 0.5 MG; Start 05/30/18 at 12:00 Acetaminophen (Tylenol Tab) 650 mg Q4H PRN PO MILD PAIN(1-3)OR ELEVATED TEMP Last administered on 06/10/18 21:44; Admin Dose 650 MG; Start 05/31/18 at 13:00 Metoclopramide HCl (Reglan) 5 mg Q6 IV Last administered on 06/26/18 12:35; Admin Dose 5 MG; Start 05/31/18 at 13:00 Collagenase (Santyl) 1 applic DAILY TOP Last administered on 06/26/18 09:11; Admin Dose 1 APPLIC; Start 06/01/18 at 09:00 Clonidine (Catapres) 0.1 mg Q6H PRN PO ELEVATED BLOOD PRESSURE Last administered on 06/17/18 05:59; Admin Dose 0.1 MG; Start 06/03/18 at 03:30 Bumetanide (Bumex) 1 mg BID DIURETICS GTB Last administered on 06/26/18 05:43; Admin Dose 1 MG; Start 06/11/18 at 18:00 Amiodarone HCl (Cordarone) 200 mg Q12 PO Last administered on 06/26/18 09:05; Admin Dose 200 MG; Start 06/12/18 at 21:00 Collagenase (Santyl) 1 applic PRN PRN TOP WHEN SOILED; Start 06/13/18 at 01:00 Nystatin (Nystatin Powder) 1 applic BID TOP Last administered on 06/26/18 09:11; Admin Dose 1 APPLIC; Start 06/13/18 at 14:00 Vancomycin HCl (Vancomycin Oral Syringe) 250 mg DAILY GTB Last administered on 06/26/18 09:10; Admin Dose 250 MG; Start 06/22/18 at 09:00; Stop 06/29/18 at 08:59 Vancomycin HCl (Vancomycin Oral Syringe) 250 mg Q48H GTB ; Start 06/29/18 at 14:00; Stop 07/06/18 at 13:59 Epoetin Zen-epbx (RETACRIT(esrd)) 20,000 unit Tu@1700 SC Last administered on 06/23/18 17:41; Admin Dose 20,000 UNIT; Start 06/16/18 at 18:30 Miscellaneous Information (*Order Clarification Bulletin) MEDICATION REQUIRES CLARIFICATION:PLE... Q8H XX Last administered on 06/22/18 23:27; Admin Dose 1 EA; Start 06/20/18 at 09:30 Ferric Sodium Gluconate Complex 125 mg/Sodium Chloride 110 ml @ 110 mls/hr DAILY@1300 IVPB Last administered on 06/25/18at 13:38; Admin Dose 110 MLS/HR; Start 06/23/18 at 13:00; Stop 06/27/18 at 13:59 Amlodipine Besylate (Norvasc) 2.5 mg DAILY PO Last administered on 06/26/18 09:05; Admin Dose 2.5 MG; Start 06/25/18 at 09:00 Metoprolol Tartrate (Lopressor) 75 mg BID GTB Last administered on 06/26/18 09:04; Admin Dose 75 MG; Start 06/24/18 at 21:00 Miscellaneous Information 1 ea NOTE XX ; Start 06/26/18 at 08:00 MANN VALDEZ MD June 26, 2018 13:40
[2018-06-26] MEDS ORDERED: MAGNESIUM SULFATE 1 GM/D5W 100 ML IVPB ONE (15:30)
[2018-06-26] MEDS: morphine LIQ (10 MG/5 ML) CUP PEG PRN (15:56)
--- NOTE | 2018-06-26 16:40 | CONS ---
Assessment/Plan Assessment/Plan Hospital Course (Demo Recall) # sepsis, leukocytosis, SIRS, pulmonary, cardiac - recurrent leukocytosis due to recurrent UTI, improved - s/p septic shock due to pneumonia and C diff colitis - acute on chronic hypoxic respiratory failure, persistent - s/p reintubation 05/12/2018 - s/p re-do trach on 05/29/2018 - recurrent colonization of the anterior neck wound with ESBL+kleb, MRSA, GBS, corynebacteria on 05/06/2018, s/p meropenem - h/o pneumonia vs. colonization of the airway by pseudomonas and ESBL+klebsiella - h/o possible, recurrent HCAP due to pseudomonas and ESBL+klebsiella - h/o recurrent HCAP due to MRSA and Enterobacter (culture of tracheal aspirate on 07/16/2017 that was collected at [facility]) . Pt took vancomycin and ceftazidime - h/o decannulation prior to admission - h/o tracheostomy on 06/11/2017 - h/o SIRS from UGIB in 2018 - h/o thoracentesis on 07/18/2017, transudative (protein <2, LDH 279) - h/o bleeding from the trach site in 2018 - h/o septic shock due to pneumonia, ARDS, bacteremia, fungemia in 2018 - h/o ARDS in 2018 - h/o smoking - COPD - h/o ILD per medical record - h/o PAF, improved # GI - possible ileus or enterocolitis on CT abd/pel 06/15/2018 - C diff colitis, diagnosed on 05/11/2018. Pt's on pGT vancomycin induction followed by taper (05/11/2018-); Pt previously took IV metronidazole (05/11/2018- 05/29/2018; restart 05/30/2018-06/05/18) too - h/o intermittent diarrhea, Pt had multiple negative C. diff tests at [facility] at OSH in the past; none was positive until 05/11/2018 - dysphagia - h/o PEG placement 06/13/2018 - protein calorie malnutrition - h/o coffee ground emesis/UGIB on 12/23/2017 due to deep ulceration of distal esophagus and gastritis on EGD 12/26/2017. No e/o H. pylori - h/o possible appendicitis on CT on 11/22/2017, Pt took ertapenem (11/24/2017-12/01/2017) - h/o extensive adhesions lower abdominal and pelvis between small bowel to each other and to colon and to abdominal wall, anterior pelvic wall chronic abscess secondary to probably an old perforated diverticulitis, torsion of small bowel around these dense adhesion causing multiple obstructive points - h/o laparoscopic exploration and extensive lysis of adhesions and drainage of anterior pelvic wall abscess 09/16/2017. Cultures were negative, no e/o malignancy. 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 S/p renally dosed amikacin for klebsiella in her urine culture (06/17-06/22/2018) - UTI due to pseudomonas and ESBL+klebsiella on 06/09/2018, Pt took one dose of fosfomycin on 06/10/2018 and cipro 06/12-06/15/2018 - anasarca - started on HD on 05/15/2018, via Juan in R groin - recurrent NATHAN on CKD - 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 Her strain of CRE was sensitive to colistin, Avycaz, and Vabomere but resistant to Zerbaxa (reported on 05/19/2018) - Hyponatremia - Hyperkalemia, now hypokalemia - Metabolic acidosis - adrenal insufficiency - h/o vaginal bleed in 2018 - h/o colonization of urinary tract by ESBL+klebsiella, VRE - h/o recurrent, symptomatic UTI due to carbapenem-resistant kleb (MDR strain) per urine culture 10/04/17, 10/09/17, 10/21/2017, P took colistin (10/09/2017- 10/15/2017), fosfomycin for carbapenemase-producing klebsiella and VRE on 10/25/2017 and 10/28/2017 - h/o funguria - h/o urinary retention # fungemia, bacteremia 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; Pt declined surgery for MVR per outside medical records; TTE 07/01/17 did not mention any thrombus; s/p voriconazole (05/25/2017-08/01/2017) - h/o bacteremia due to MSSA and proteus s/p ceftriaxone; repeat blood cultures were negative on 06/14/2017 # musculoskeletal and dermatological - L hand pain - dry skin - chronic wound of LLE - h/o infection of wound of LLE - h/o debridement of wound of LLE on 08/06/2017 - h/o recurrent herpes labialis, Pt took acyclovir, valacyclovir - h/o Osler's nodes (eschar) of R toes with erythematous skin; desquamation of the skin and open lacerations on R plantar foot. improved. Probable m anifestation of endocarditis. Pt declined MRI on 08/06/2017 - h/o infection of R toes due to pseudomonas. coagulase negative Staph likely a colonizer - h/o intertrigo of the groin, resolved with nystatin powder - h/o scabies, locally crusted lesion over L scapula, s/p permethrin cream and pGT ivermectin on 08/11/2017, 08/12/2017, 08/19/2017. Repeat skin scraping on 08/21/2017 was negative for scabies # psych, neuro - decreased hearing b/l - s/p acute toxic metabolic encephalopathy - h/o critical illness polyneuropathy - anxiety/depression, bipolar d/o, seen by Psychiatry in the past - chronic pain syndrome - h/o medical non-compliance: she would refuse her medications, treatment and straight catheterization in 2018 # hematological, vascular - chronic anemia requiring blood transfusion intermittently - macrocytic anemia - aneurysmal dilatation of the distal aorta visualized on CT 06/15/2018 - PVD Recommendations: - Monitor closely off systemic antibiotics. S/p renally dosed amikacin for klebsiella in her urine culture (06/17-06/22/2018) - Continue pGT vancomycin taper: 06/15/2018-06/21/2018 bid, 06/22-06/28: daily, 06/29- 07/05: q48hrs Above plan discussed and coordinated with via [employer]. Consultation Date/Type/Reason Admit Date/Time May 06, 2018 at 17:38 Initial Consult Date 05/10/18 Requesting Provider: ROLAND GIRON MD Date/Time of Note DATE: 06/26/18 TIME: 16:40 24 HR Interval Summary Free Text/Dictation x1 soft - loose BM today. Subjective hx not possible: pt non-verbal Exam/Review of Systems Exam Vitals Vital Signs Date Temp Pulse Resp B/P (MAP) Pulse Ox O2 O2 Flow FiO2 Time Delivery Rate 06/26/18 70 26 100 30 15:50 06/26/18 98.5 136/66 15:37 (89) 06/25/18 Mechanical 16:06 Ventilator Intake and Output 06/25/18 06/25/18 06/26/18 1515:00 23:00 07:00 IntakeIntake Total 100 ml 600 ml 700 ml OutputOutput Total 900 ml 750 ml BalanceBalance 100 ml -300 ml -50 ml Exam Constitutional: alert, well developed, non-verbal, frail, obese Psych: nl mood/affect Head: normocephalic, atraumatic Eyes: nl conjunctiva, nl lids, nl sclera ENMT: nl external ears & nose, nl nasal mucosa & septum Neck: supple, non-tender, other (on mechanical vent via trach, trach midline, site is c/d/i) Respiratory: normal air movement, diminished breath sounds No wheezing Cardiovascular: regular rate and rhythm, nl pulses Gastrointestinal: soft, non-tender, bowel sounds (normoactive ), No distended, No firm Genitourinary - Female: other (F/C draining clear yellow urine, HD catheter R groin, site is c/d/i) Musculoskeletal: muscle weakness, other (julia foot drop) Extremities: normal pulses, edema (BUE, BLE +1); No tenderness Neurological: Awake, alert, communicates via mouthing words, follows commands Skin: nl turgor Results Result Diagram: 06/26/18 0650 06/26/18 0649 Results 24hrs Laboratory Tests Test 06/26/18 06:49 06/26/18 06:50 06/26/18 07:28 Sodium Level 135 Potassium Level 3.8 Chloride Level 104 Carbon Dioxide Level 21 Anion Gap 10 Blood Urea Nitrogen 61 H Creatinine 1.50 H Est Glomerular Filtrat Rate mL/min Glucose Level 101 Calcium Level 9.8 Phosphorus Level 4.1 Magnesium Level 1.6 L White Blood Count 10.3 Red Blood Count 2.83 L Hemoglobin 9.2 L Hematocrit 29.6 L Mean Corpuscular Volume 104.6 H Mean Corpuscular Hemoglobin 32.5 Mean Corpuscular 31.1 L Hemoglobin Concent Red Cell Distribution Width 23.9 H Platelet Count 349 Mean Platelet Volume 9.7 Immature Granulocytes % 0.400 Neutrophils % 81.9 H Lymphocytes % 7.1 L Monocytes % 6.0 Eosinophils % 4.3 Basophils % 0.3 Nucleated Red Blood Cells % 0.0 Immature Granulocytes # 0.040 H Neutrophils # 8.4 H Lymphocytes # 0.7 L Monocytes # 0.6 Eosinophils # 0.4 Basophils # 0.0 Nucleated Red Blood Cells # 0.0 Lab Scanned Report BLOOD TRANSFUSION Medications Medication Current Medications IV Flush (NS 10 ml) 10 ml PRN IV ; Start 05/06/18 at 20:30 Ascorbic Acid (Vitamin C) 500 mg DAILY GTB Last administered on 06/26/18at 09:03; Admin Dose 500 MG; Start 05/07/18 at 09:00 Albuterol/ Ipratropium (Duoneb) 3 ml Q2H RESP THERAPY PRN HHN SHORTNESS OF BREATH Last administered on 06/22/18at 11:03; Admin Dose 3 ML; Start 05/06/18 at 23:30 Zinc Sulfate (Zinc Sulfate) 220 mg DAILY GTB Last administered on 06/26/18at 09:03; Admin Dose 220 MG; Start 05/07/18 at 09:00 Ondansetron HCl (Zofran Tab) 4 mg Q6H PRN GTB NAUSEA AND/OR VOMITING Last administered on 05/31/18at 16:47; Admin Dose 4 MG; Start 05/07/18 at 00:15 Multivitamins (Multivitamin) 30 ml DAILY GTB Last administered on 06/26/18 09:10; Admin Dose 30 ML; Start 05/07/18 at 09:00 Miscellaneous Information (Pending Santyl Order For Wound Care) This patient goldman... PRN PRN XX WOUND CARE; Start 05/09/18 at 17:00 Spironolactone (Aldactone) 50 mg DAILY GTB Last administered on 06/26/18 09:05; Admin Dose 50 MG; Start 05/21/18 at 09:00 Famotidine (Pepcid) 20 mg DAILY PEG Last administered on 06/26/18 09:04; Admin Dose 20 MG; Start 05/23/18 at 09:00 Morphine Sulfate (morphine) 6 mg Q4H PRN PEG SEVERE PAIN LEVEL 7-10 Last admini stered on 06/26/18 15:56; Admin Dose 6 MG; Start 05/22/18 at 17:00 Albumin Human 100 ml @ 100 mls/hr DURING DIALYSIS PRN IV hypotension on hd Last administered on 05/29/18 14:49; Admin Dose 100 MLS/HR; Start 05/27/18 at 07:30 Cholestyramine Resin (Questran Light) 4 gm 0600,1200,1800,2300 PO Last administered on 06/26/18 12:35; Admin Dose 4 GM; Start 05/27/18 at 18:00 Lorazepam (Ativan) 0.5 mg Q4H PRN IV ANXIETY Last administered on 06/22/18 18:11; Admin Dose 0.5 MG; Start 05/30/18 at 12:00 Acetaminophen (Tylenol Tab) 650 mg Q4H PRN PO MILD PAIN(1-3)OR ELEVATED TEMP Last administered on 06/10/18 21:44; Admin Dose 650 MG; Start 05/31/18 at 13:00 Metoclopramide HCl (Reglan) 5 mg Q6 IV Last administered on 06/26/18 12:35; Admin Dose 5 MG; Start 05/31/18 at 13:00 Collagenase (Santyl) 1 applic DAILY TOP Last administered on 06/26/18 09:11; Admin Dose 1 APPLIC; Start 06/01/18 at 09:00 Clonidine (Catapres) 0.1 mg Q6H PRN PO ELEVATED BLOOD PRESSURE Last administered on 06/17/18 05:59; Admin Dose 0.1 MG; Start 06/03/18 at 03:30 Bumetanide (Bumex) 1 mg BID DIURETICS GTB Last administered on 06/26/18 05:43; Admin Dose 1 MG; Start 06/11/18 at 18:00 Amiodarone HCl (Cordarone) 200 mg Q12 PO Last administered on 06/26/18 09:05; Admin Dose 200 MG; Start 06/12/18 at 21:00 Collagenase (Santyl) 1 applic PRN PRN TOP WHEN SOILED; Start 06/13/18 at 01:00 Nystatin (Nystatin Powder) 1 applic BID TOP Last administered on 06/26/18 09:11; Admin Dose 1 APPLIC; Start 06/13/18 at 14:00 Vancomycin HCl (Vancomycin Oral Syringe) 250 mg DAILY GTB Last administered on 06/26/18 09:10; Admin Dose 250 MG; Start 06/22/18 at 09:00; Stop 06/29/18 at 08:59 Vancomycin HCl (Vancomycin Oral Syringe) 250 mg Q48H GTB ; Start 06/29/18 at 14:00; Stop 07/06/18 at 13:59 Epoetin Zen-epbx (RETACRIT(esrd)) 20,000 unit Tu@1700 SC Last administered on 06/23/18 17:41; Admin Dose 20,000 UNIT; Start 06/16/18 at 18:30 Miscellaneous Information (*Order Clarification Bulletin) MEDICATION REQUIRES CLARIFICATION:PLE... Q8H XX Last administered on 06/22/18 23:27; Admin Dose 1 EA; Start 06/20/18 at 09:30 Ferric Sodium Gluconate Complex 125 mg/Sodium Chloride 110 ml @ 110 mls/hr DAILY@1300 IVPB Last administered on 06/26/18 13:39; Admin Dose 110 MLS/HR; Start 06/23/18 at 13:00; Stop 06/27/18 at 13:59 Amlodipine Besylate (Norvasc) 2.5 mg DAILY PO Last administered on 06/26/18 09:05; Admin Dose 2.5 MG; Start 5/9/19 at 09:00 Metoprolol Tartrate (Lopressor) 75 mg BID GTB Last administered on 06/26/18at 09:04; Admin Dose 75 MG; Start 06/24/18 at 21:00 Miscellaneous Information 1 ea NOTE XX ; Start 06/26/18 at 08:00 ARANZA FAY NP June 26, 2018 16:40
[2018-06-26] MEDS: LORAZEPAM 2 MG INJ IV PRN (19:44)
[2018-06-27] VITALS (23 sets, daily range): BP systolic 114–151; BP diastolic 63–101; PULSE 67–89; RESP 18–29
[2018-06-27] MEDS: CHOLESTYRAMINE (LIGHT) 4 GM PACKET PO SCH ×3 (00:18→12:31)
[2018-06-27] MEDS: METOCLOPRAMIDE 10 MG INJ IV SCH ×5 (00:18→22:39)
[2018-06-27] MEDS: BUMETANIDE 1 MG TAB GTB SCH ×2 (05:14→17:34)
[2018-06-27] MEDS: morphine LIQ (10 MG/5 ML) CUP PEG PRN ×2 (06:03→15:52)
[2018-06-27] MEDS: FAMOTIDINE 20 MG TAB PEG SCH (08:59)
[2018-06-27] MEDS: ZINC SULFATE 220 MG CAP GTB SCH (08:59)
[2018-06-27] MEDS: ASCORBIC ACID 500 MG TAB GTB SCH (08:59)
[2018-06-27] MEDS: METOPROLOL 25 MG TAB GTB SCH ×2 (09:00→19:44)
[2018-06-27] MEDS: COLLAGENASE 5 GM (UD JAR) TOP SCH (09:00)
[2018-06-27] MEDS: AMLODIPINE 2.5 MG TAB PO SCH (09:00)
[2018-06-27] MEDS: BALSAM PERU/CASTOR OIL 60 GM TUBE TOP SCH ×2 (09:00→19:42)
[2018-06-27] MEDS: SPIRONOLACTONE 25 MG TAB GTB SCH (09:00)
[2018-06-27] MEDS: VANCOMYCIN HCL 250 MG/5ML POSYG GTB SCH (09:01)
[2018-06-27] MEDS: AMIODARONE 200 MG TAB PO SCH ×2 (09:01→19:44)
[2018-06-27] MEDS: MULTIVITAMINS 30 ML CUP GTB SCH (09:01)
[2018-06-27] MEDS: NYSTATIN 30 GM POWDER BTL TOP SCH ×2 (09:02→19:42)
--- NOTE | 2018-06-27 12:14 | CONS ---
Assessment/Plan Assessment/Plan Hospital Course (Demo Recall) 1. Nonoliguric acute kidney injury on top of chronic kidney disease stage IIIB/IV with previous baseline creatinine 2.0 mg/dL. Etiology of acute kidney injury secondary to acute tubular necrosis. The patient is status post hemodialysis. Renal function stabilized. Continue current treatment plans, supportive care, renally dose all medications. 2. Volume overload, improving. Continue Bumex. Continue to give intermittent metolazone as needed. 3. Hyponatremia, improved. Free water flushes were adjusted. Continue to monitor. 4. Anemia. Monitor hemoglobin and hematocrit levels. The patient is completing course of IV Ferrlecit. Will give intermittent Epogen as needed. 5. Mineral bone disorder, monitor calcium and phosphorus levels. 6. Ventilator-dependent respiratory failure. Vent settings and arterial blood gas was reviewed. Continue to monitor. 7. Sepsis, status post shock. The patient is completing antibiotic course. 8. Lower extremity wounds. Continue wound care. 9. Dysphagia. Continue tube feeding. 10. Encephalopathy. Continue to monitor. Consultation Date/Type/Reason Admit Date/Time May 06, 2018 at 17:38 Initial Consult Date 05/10/18 Requesting Provider: ROLAND GIRON MD Date/Time of Note DATE: 06/27/18 TIME: 12:14 24 HR Interval Summary Free Text/Dictation afebrile overnight events reviewed gen nad cv rrr pulm ctab abd soft, nd, nt +bs ext: no edema Exam/Review of Systems Exam Vitals Vital Signs Date Temp Pulse Resp B/P (MAP) Pulse Ox O2 O2 Flow FiO2 Time Delivery Rate 06/27/18 98.5 76 18 114/65 99 11:57 (81) 06/27/18 30 11:22 06/25/18 Mechanical 16:06 Ventilator Intake and Output 06/26/18 06/26/18 06/27/18 1515:00 23:00 07:00 IntakeIntake Total 810 ml 690 ml OutputOutput Total 950 ml 900 ml BalanceBalance -140 ml -210 ml Results Result Diagram: 06/26/18 0650 06/27/18 0615 Results 24hrs Laboratory Tests Test 06/27/18 06:15 Sodium Level 135 Potassium Level 3.6 Chloride Level 105 Carbon Dioxide Level 19 L Anion Gap 11 Blood Urea Nitrogen 57 H Creatinine 1.54 H Est Glomerular Filtrat Rate mL/min Glucose Level 110 Calcium Level 9.7 Total Bilirubin 0.2 Direct Bilirubin 0.00 Indirect Bilirubin 0.2 Aspartate Amino Transf (AST/SGOT) 16 Alanine Aminotransferase (ALT/SGPT) < 6 L Alkaline Phosphatase 139 H Total Protein 7.4 Albumin 3.2 L Globulin 4.20 H Albumin/Globulin Ratio 0.76 Medications Medication Current Medications IV Flush (NS 10 ml) 10 ml PRN IV ; Start 05/06/18 at 20:30 Ascorbic Acid (Vitamin C) 500 mg DAILY GTB Last administered on 06/27/18 08:59; Admin Dose 500 MG; Start 05/07/18 at 09:00 Albuterol/ Ipratropium (Duoneb) 3 ml Q2H RESP THERAPY PRN HHN SHORTNESS OF LETTY TH Last administered on 06/22/18 11:03; Admin Dose 3 ML; Start 05/06/18 at 23:30 Zinc Sulfate (Zinc Sulfate) 220 mg DAILY GTB Last administered on 06/27/18 08:59; Admin Dose 220 MG; Start 05/07/18 at 09:00 Ondansetron HCl (Zofran Tab) 4 mg Q6H PRN GTB NAUSEA AND/OR VOMITING Last administered on 05/31/18 16:47; Admin Dose 4 MG; Start 05/07/18 at 00:15 Multivitamins (Multivitamin) 30 ml DAILY GTB Last administered on 06/27/18 09:01; Admin Dose 30 ML; Start 05/07/18 at 09:00 Miscellaneous Information (Pending [facility] Order For Wound Care) This patient goldman... PRN PRN XX WOUND CARE; Start 05/09/18 at 17:00 Spironolactone (Aldactone) 50 mg DAILY GTB Last administered on 06/27/18 09:00; Admin Dose 50 MG; Start 05/21/18 at 09:00 Famotidine (Pepcid) 20 mg DAILY PEG Last administered on 06/27/18 08:59; Admin Dose 20 MG; Start 05/23/18 at 09:00 Morphine Sulfate (morphine) 6 mg Q4H PRN PEG SEVERE PAIN LEVEL 7-10 Last administered on 06/27/18 06:03; Admin Dose 6 MG; Start 05/22/18 at 17:00 Albumin Human 100 ml @ 100 mls/hr DURING DIALYSIS PRN IV hypotension on hd Last administered on 05/29/18 14:49; Admin Dose 100 MLS/HR; Start 05/27/18 at 07:30 Cholestyramine Resin (Questran Light) 4 gm 0600,1200,1800,2300 PO Last administered on 06/27/18 05:12; Admin Dose 4 GM; Start 05/27/18 at 18:00 Lorazepam (Ativan) 0.5 mg Q4H PRN IV ANXIETY Last administered on 06/26/18 19:44; Admin Dose 0.5 MG; Start 05/30/18 at 12:00 Acetaminophen (Tylenol Tab) 650 mg Q4H PRN PO MILD PAIN(1-3)OR ELEVATED TEMP Last administered on 06/10/18 21:44; Admin Dose 650 MG; Start 05/31/18 at 13:00 Metoclopramide HCl (Reglan) 5 mg Q6 IV Last administered on 06/27/18 05:12; Admin Dose 5 MG; Start 05/31/18 at 13:00 Collagenase (Santyl) 1 applic DAILY TOP Last administered on 06/26/18 09:11; Admin Dose 1 APPLIC; Start 06/01/18 at 09:00 Clonidine (Catapres) 0.1 mg Q6H PRN PO ELEVATED BLOOD PRESSURE Last administered on 06/17/18 05:59; Admin Dose 0.1 MG; Start 06/03/18 at 03:30 Bumetanide (Bumex) 1 mg BID DIURETICS GTB Last administered on 06/27/18 05:14; Admin Dose 1 MG; Start 06/11/18 at 18:00 Amiodarone HCl (Cordarone) 200 mg Q12 PO Last administered on 06/27/18 09:01; Admin Dose 200 MG; Start 06/12/18 at 21:00 Collagenase (Santyl) 1 applic PRN PRN TOP WHEN SOILED; Start 06/13/18 at 01:00 Nystatin (Nystatin Powder) 1 applic BID TOP Last administered on 06/27/18 09:02; Admin Dose 1 APPLIC; Start 06/13/18 at 14:00 Vancomycin HCl (Vancomycin Oral Syringe) 250 mg DAILY GTB Last administered on 5/11/19at 09:01; Admin Dose 250 MG; Start 06/22/18 at 09:00; Stop 06/29/18 at 08:59 Vancomycin HCl (Vancomycin Oral Syringe) 250 mg Q48H GTB ; Start 06/29/18 at 14:00; Stop 07/06/18 at 13:59 Epoetin Zen-epbx (RETACRIT(esrd)) 20,000 unit Tu@1700 SC Last administered on 06/23/18at 17:41; Admin Dose 20,000 UNIT; Start 06/16/18 at 18:30 Miscellaneous Information (*Order Clarification Bulletin) MEDICATION REQUIRES CLARIFICATION:PLE... Q8H XX Last administered on 06/22/18at 23:27; Admin Dose 1 EA; Start 06/20/18 at 09:30 Ferric Sodium Gluconate Complex 125 mg/Sodium Chloride 110 ml @ 110 mls/hr DAILY@1300 IVPB Last administered on 06/26/18at 13:39; Admin Dose 110 MLS/HR; Start 06/23/18 at 13:00; Stop 06/27/18 at 13:59 Amlodipine Besylate (Norvasc) 2.5 mg DAILY PO Last administered on 06/27/18at 09:00; Admin Dose 2.5 MG; Start 06/25/18 at 09:00 Metoprolol Tartrate (Lopressor) 75 mg BID GTB Last administered on 06/27/18at 09:00; Admin Dose 75 MG; Start 06/24/18 at 21:00 Miscellaneous Information 1 ea NOTE XX ; Start 06/26/18 at 08:00 Miscellaneous Information (*Order Clarification Bulletin) MEDICATION REQUIRES CLARIFICATI... Q8H XX ; Start 06/26/18 at 18:30 ALIZE FLORES MD June 27, 2018 12:14
[2018-06-27] MEDS: SOD FERRIC GLUC COMPLX 125 MG in SOD CHLORIDE 0.9% 100 ML IVPB SCH (12:31)
--- NOTE | 2018-06-27 14:07 | PN ---
Date/Time of Note Date/Time of Note DATE: 06/27/18 TIME: 14:07 Assessment/Plan VTE Prophylaxis Risk score (from [facility])>0 risk: 12 SCD applied (from [facility]): Yes SCD contraindicated: other Pharmacological prophylaxis: other Pharm contraindication: other Lines/Catheters IV C[facility]ter Type (from [facility]): PICC Line Central line still needed: Yes Urinary Cath still in place: Yes Reason Cath still needed: urinary retention Assessment/Plan Assessment/Plan - MDR Klebsiella urinary tract infection, completed treatment with amikacin. Dr. Walton is following in infectious consultation. - Hypokalemia- resolved - Acute abdominal pain - CT showed Air-fluid levels are seen throughout the small bowel and colon. Consider mild ileus versus enterocolitis. - NPO/ IVF - per GI - cont to monitor -Atrial fibrillation was rapid ventricular response, s/p amiodarone drip. Rate is well controlled on p.o. amiodarone and metoprolol. - Dr. Scanlon is following in cardiology consultation. -Septic shock secondary to urinary tract infection, anterior neck soft tissue infection, and C. difficile colitis, resolving. - Continue antibiotics per ID. Dr. Brian Doyle is following in infection disease consultation. -Acute respiratory failure requiring intubation and ventilatory support. - Dr. Lambert is following in pulmonology consultation. -S/p tracheostomy on 05/29/18. -Acute kidney injury on chronic kidney disease. Started on HD this admission. - Dr. Mckeon is following in nephrology consultation. -Anemia of chronic inflammation, stool for OB is negative, status post blood transfusion. Continue Epogen. -Metabolic acidosis, resolved. -Acute diastolic congestive heart failure. -Paroxysmal atrial fibrillation -COPD -Dysphagia with PEG. -G-tube mild malfunction, changed by GI Dr. Carolina is following in gastroenterology consultation. -Obesity- weight management Patient is seen in collaboration with Dr Eisenberg. staff. Further recommendations based on clinical course. Result Diagram: 06/26/18 0650 06/27/18 0615 Results 24hrs Laboratory Tests Test 06/27/18 06:15 Sodium Level 135 Potassium Level 3.6 Chloride Level 105 Carbon Dioxide Level 19 L Anion Gap 11 Blood Urea Nitrogen 57 H Creatinine 1.54 H Est Glomerular Filtrat Rate mL/min Glucose Level 110 Calcium Level 9.7 Total Bilirubin 0.2 Direct Bilirubin 0.00 Indirect Bilirubin 0.2 Aspartate Amino Transf (AST/SGOT) 16 Alanine Aminotransferase (ALT/SGPT) < 6 L Alkaline Phosphatase 139 H Total Protein 7.4 Albumin 3.2 L Globulin 4.20 H Albumin/Globulin Ratio 0.76 Subjective 24 Hr Interval Summary Free Text/Dictation afebrile CR 1.54 today refuses ADLs at times no new events reported last night dw staff Subjective hx not possible: pt non-verbal Constitutional: requiring IVF, requiring O2 Exam/Review of Systems Exam Vitals Vital Signs Date Temp Pulse Resp B/P (MAP) Pulse Ox O2 O2 Flow FiO2 Time Delivery Rate 06/27/18 66 25 99 30 13:50 06/27/18 98.5 114/65 11:57 (81) 06/25/18 Mechanical 16:06 Ventilator Intake and Output 06/26/18 06/26/18 06/27/18 1515:00 23:00 07:00 IntakeIntake Total 810 ml 690 ml OutputOutput Total 950 ml 900 ml BalanceBalance -140 ml -210 ml Constitutional: alert, non-verbal, distress Psych: nl mood/affect Eyes: nl lids, nl sclera ENMT: nl external ears & nose Neck: other (trach intact) Respiratory: clear to auscultation Cardiovascular: nl pulses, other (s1s2) Gastrointestinal: soft, other (gt intact) Musculoskeletal: joint tenderness, muscle weakness, range of motion Extremities: normal pulses Neurological: confused Lymph: nontender Results Results 24hrs Laboratory Tests Test 06/27/18 06:15 Sodium Level 135 Potassium Level 3.6 Chloride Level 105 Carbon Dioxide Level 19 L Anion Gap 11 Blood Urea Nitrogen 57 H Creatinine 1.54 H Est Glomerular Filtrat Rate mL/min Glucose Level 110 Calcium Level 9.7 Total Bilirubin 0.2 Direct Bilirubin 0.00 Indirect Bilirubin 0.2 Aspartate Amino Transf (AST/SGOT) 16 Alanine Aminotransferase (ALT/SGPT) < 6 L Alkaline Phosphatase 139 H Total Protein 7.4 Albumin 3.2 L Globulin 4.20 H Albumin/Globulin Ratio 0.76 Medications Medication Current Medications IV Flush (NS 10 ml) 10 ml PRN IV ; Start 05/06/18 at 20:30 Ascorbic Acid (Vitamin C) 500 mg DAILY GTB Last administered on 06/27/18at 08:59; Admin Dose 500 MG; Start 05/07/18 at 09:00 Albuterol/ Ipratropium (Duoneb) 3 ml Q2H RESP THERAPY PRN HHN SHORTNESS OF BREATH Last administered on 06/22/18 11:03; Admin Dose 3 ML; Start 05/06/18 at 23:30 Zinc Sulfate (Zinc Sulfate) 220 mg DAILY GTB Last administered on 06/27/18 08:59; Admin Dose 220 MG; Start 05/07/18 at 09:00 Ondansetron HCl (Zofran Tab) 4 mg Q6H PRN GTB NAUSEA AND/OR VOMITING Last administered on 05/31/18 16:47; Admin Dose 4 MG; Start 05/07/18 at 00:15 Multivitamins (Multivitamin) 30 ml DAILY GTB Last administered on 06/27/18 09:01; Admin Dose 30 ML; Start 05/07/18 at 09:00 [facility]isc[facility] This patient goldman... PRN PRN XX WOUND CARE; Start 05/09/18 at 17:00 Spironolactone (Aldactone) 50 mg DAILY GTB Last administered on 06/27/18 09:00; Admin Dose 50 MG; Start 05/21/18 at 09:00 Famotidine (Pepcid) 20 mg DAILY PEG Last administered on 06/27/18 08:59; Admin Dose 20 MG; Start 05/23/18 at 09:00 Morphine Sulfate (morphine) 6 mg Q4H PRN PEG SEVERE PAIN LEVEL 7-10 Last administered on 06/27/18 06:03; Admin Dose 6 MG; Start 05/22/18 at 17:00 Albumin Human 100 ml @ 100 mls/hr DURING DIALYSIS PRN IV hypotension on hd Last administered on 05/29/18 14:49; Admin Dose 100 MLS/HR; Start 05/27/18 at 07:30 Cholestyramine Resin (Questran Light) 4 gm 0600,1200,1800,2300 PO Last administered on 06/27/18 12:31; Admin Dose 4 GM; Start 05/27/18 at 18:00 Lorazepam (Ativan) 0.5 mg Q4H PRN IV ANXIETY Last administered on 06/26/18 19:44; Admin Dose 0.5 MG; Start 05/30/18 at 12:00 Acetaminophen (Tylenol Tab) 650 mg Q4H PRN PO MILD PAIN(1-3)OR ELEVATED TEMP Last administered on 06/10/18 21:44; Admin Dose 650 MG; Start 05/31/18 at 13:00 Metoclopramide HCl (Reglan) 5 mg Q6 IV Last administered on 06/27/18 12:31; Admin Dose 5 MG; Start 05/31/18 at 13:00 Collagenase (Santyl) 1 applic DAILY TOP Last administered on 06/26/18 09:11; Admin Dose 1 APPLIC; Start 06/01/18 at 09:00 Clonidine (Catapres) 0.1 mg Q6H PRN PO ELEVATED BLOOD PRESSURE Last administered on 06/17/18 05:59; Admin Dose 0.1 MG; Start 06/03/18 at 03:30 Bumetanide (Bumex) 1 mg BID DIURETICS GTB Last administered on 06/27/18 05:14; Admin Dose 1 MG; Start 06/11/18 at 18:00 Amiodarone HCl (Cordarone) 200 mg Q12 PO Last administered on 06/27/18 09:01; Admin Dose 200 MG; Start 06/12/18 at 21:00 Collagenase (Santyl) 1 applic PRN PRN TOP WHEN SOILED; Start 06/13/18 at 01:00 Nystatin (Nystatin Powder) 1 applic BID TOP Last administered on 06/27/18 09:02; Admin Dose 1 APPLIC; Start 06/13/18 at 14:00 Vancomycin HCl (Vancomycin Oral Syringe) 250 mg DAILY GTB Last administered on 06/27/18 09:01; Admin Dose 250 MG; Start 06/22/18 at 09:00; Stop 06/29/18 at 08:59 Vancomycin HCl (Vancomycin Oral Syringe) 250 mg Q48H GTB ; Start 06/29/18 at 14:00; Stop 07/06/18 at 13:59 Epoetin Zen-epbx (RETACRIT(esrd)) 20,000 unit Tu@1700 SC Last administered on 06/23/18 17:41; Admin Dose 20,000 UNIT; Start 06/16/18 at 18:30 Miscellaneous Information (*Order Clarification Bulletin) MEDICATION REQUIRES CLARIFICATION:PLE... Q8H XX Last administered on 06/22/18at 23:27; Admin Dose 1 EA; Start 06/20/18 at 09:30 Amlodipine Besylate (Norvasc) 2.5 mg DAILY PO Last administered on 06/27/18at 09:00; Admin Dose 2.5 MG; Start 06/25/18 at 09:00 Metoprolol Tartrate (Lopressor) 75 mg BID GTB Last administered on 06/27/18at 09:00; Admin Dose 75 MG; Start 06/24/18 at 21:00 Miscellaneous Information 1 ea NOTE XX ; Start 06/26/18 at 08:00 Miscellaneous Information (*Order Clarification Bulletin) MEDICATION REQUIRES CLARIFICATI... Q8H XX ; Start 06/26/18 at 18:30 KERON MORAN June 27, 2018 14:07
--- NOTE | 2018-06-27 15:35 | CONS ---
[facility] HCIS Consult Follow-up Patient Name: Zuly Mcwilliams Unit Number: [id number] Date of : 1945 Patient Status: Admitted Inpatient Attending Doctor: Roland Giron MD Edit: CELESTINE SANCHEZ M.D. on 06/29/18 @ 03:20 Daniel: I discussed the management with JADE Joshi and agree Assessment/Plan Assessment/Plan Hospital Course (Demo Recall) # sepsis, leukocytosis, SIRS, pulmonary, cardiac - recurrent leukocytosis due to recurrent UTI, improved - s/p septic shock due to pneumonia and C diff colitis - acute on chronic hypoxic respiratory failure, persistent - s/p reintubation 05/12/2018 - s/p re-do trach on 05/29/2018 - recurrent colonization of the anterior neck wound with ESBL+kleb, MRSA, GBS, corynebacteria on 05/06/2018, s/p meropenem - h/o pneumonia vs. colonization of the airway by pseudomonas and ESBL+klebsiella - h/o possible, recurrent HCAP due to pseudomonas and ESBL+klebsiella - h/o recurrent HCAP due to MRSA and Enterobacter (culture of tracheal aspirate on 07/16/2017 that was collected at [facility]) . Pt took vancomycin and ceftazidime - h/o decannulation prior to admission - h/o tracheostomy on 06/11/2017 - h/o SIRS from UGIB in 2018 - h/o thoracentesis on 07/18/2017, transudative (protein <2, LDH 279) - h/o bleeding from the trach site in 2018 - h/o septic shock due to pneumonia, ARDS, bacteremia, fungemia in 2018 - h/o ARDS in 2018 - h/o smoking - COPD - h/o ILD per medical record - h/o PAF, improved # GI - possible ileus or enterocolitis on CT abd/pel 06/15/2018 - C diff colitis, diagnosed on 05/11/2018. Pt's on pGT vancomycin induction followed by taper (05/11/2018-); Pt previously took IV metronidazole (05/11/2018- 05/29/2018; restart 05/30/2018-06/05/18) too - h/o intermittent diarrhea, Pt had multiple negative C. diff tests at [facility] at OSH in the past; none was positive until 05/11/2018 - dysphagia - h/o PEG placement 06/13/2018 - protein calorie malnutrition - h/o coffee ground emesis/UGIB on 12/23/2017 due to deep ulceration of distal esophagus and gastritis on EGD 12/26/2017. No e/o H. pylori - h/o possible appendicitis on CT on 11/22/2017, Pt took ertapenem (11/24/2017- 12/01/2017) - h/o extensive adhesions lower abdominal and pelvis between small bowel to each other and to colon and to abdominal wall, anterior pelvic wall chronic abscess secondary to probably an old perforated diverticulitis, torsion of small bowel around these dense adhesion causing multiple obstructive points - h/o laparoscopic exploration and extensive lysis of adhesions and drainage of anterior pelvic wall abscess 09/16/2017. Cultures were negative, no e/o malignancy. 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 S/p renally dosed amikacin for klebsiella in her urine culture (06/17-06/22/2018) - UTI due to pseudomonas and ESBL+klebsiella on 06/09/2018, Pt took one dose of fosfomycin on 06/10/2018 and cipro 06/12-06/15/2018 - anasarca - started on HD on 05/15/2018, via Juan in R groin - recurrent NATHAN on CKD - 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 Her strain of CRE was sensitive to colistin, Avycaz, and Vabomere but resistant to Zerbaxa (reported on 05/19/2018) - metabolic acidosis - adrenal insufficiency - h/o vaginal bleed in 2018 - h/o colonization of urinary tract by ESBL+klebsiella, VRE - h/o recurrent, symptomatic UTI due to carbapenem-resistant kleb (MDR strain) per urine culture 10/04/17, 10/09/17, 10/21/2017, P took colistin (10/09/2017- 10/15/2017), fosfomycin for carbapenemase-producing klebsiella and VRE on 10/25/2017 and 10/28/2017 - h/o funguria - h/o urinary retention # fungemia, bacteremia 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; Pt declined surgery for MVR per outside medical records; TTE 07/01/17 did not mention any thrombus; s/p voriconazole (05/25/2017-08/01/2017) - h/o bacteremia due to MSSA and proteus s/p ceftriaxone; repeat blood cultures were negative on 06/14/2017 # musculoskeletal and dermatological - L hand pain - dry skin - chronic wound of LLE - h/o infection of wound of LLE - h/o debridement of wound of LLE on 08/06/2017 - h/o recurrent herpes labialis, Pt took acyclovir, valacyclovir - h/o Osler's nodes (eschar) of R toes with erythematous skin; desquamation of the skin and open lacerations on R plantar foot. improved. Probable manifestation of endocarditis. Pt declined MRI on 08/06/2017 - h/o infection of R toes due to pseudomonas. coagulase negative Staph likely a colonizer - h/o intertrigo of the groin, resolved with nystatin powder - h/o scabies, locally crusted lesion over L scapula, s/p permethrin cream and pGT ivermectin on 08/11/2017, 08/12/2017, 08/19/2017. Repeat skin scraping on 08/21/2017 was negative for scabies # psych, neuro - decreased hearing b/l - s/p acute toxic metabolic encephalopathy - h/o critical illness polyneuropathy - anxiety/depression, bipolar d/o, seen by Psychiatry in the past - chronic pain syndrome - h/o medical non-compliance: she would refuse her medications, treatment and straight catheterization in 2018 # hematological, vascular - chronic anemia requiring blood transfusion intermittently - macrocytic anemia - aneurysmal dilatation of the distal aorta visualized on CT 06/15/2018 - PVD Recommendations: - Monitor closely off systemic antibiotics. S/p renally dosed amikacin for klebsiella in her urine culture (06/17-06/22/2018) - Continue pGT vancomycin taper: 06/22-06/28/2018: daily and 06/29-07/05/2018: q48hrs Management d/w patient, JAYANT Bender, and with Dr. Sanchez Consultation Date/Type/Reason Admit Date/Time May 06, 2018 at 17:38 Initial Consult Date 05/07/18 Type of Consult Infectious Disease Requesting Provider: ROLAND GIRON MD Date/Time of Note DATE: 06/27/18 TIME: 15:35 24 HR Interval Summary Free Text/Dictation No acute issues per d/w nursing. Pt c/o same chronic back pain and asking for pain medication. Nods no to SOB. Reports mild nausea but no vomiting. Subjective hx not possible: pt non-verbal Exam/Review of Systems Exam Vitals Vital Signs Date Temp Pulse Resp B/P (MAP) Pulse Ox O2 O2 Flow FiO2 Time Delivery Rate 06/27/18 66 25 99 30 13:50 06/27/18 98.5 114/65 11:57 (81) 06/25/18 Mechanical 16:06 Ventilator Intake and Output 06/26/18 06/26/18 06/27/18 1414:59 22:59 06:59 IntakeIntake Total 810 ml 690 ml OutputOutput Total 950 ml 900 ml BalanceBalance -140 ml -210 ml Exam Constitutional: alert, well developed, non-verbal, frail, obese, (chronically debilitated) Psych: nl mood/affect Head: normocephalic, atraumatic Eyes: nl conjunctiva, nl lids, nl sclera ENMT: nl external ears & nose, nl nasal mucosa & septum, other (MM pink and moist with no thrush) Neck: other (+trach connected to ventilator support) Respiratory: diminished breath sounds Cardiovascular: regular rate and rhythm, nl pulses Gastrointestinal: soft, other (+GT; soft mushy stool noted, moderate amount - >RN notified) Genitourinary - Female: other (+Garza) Musculoskeletal: nl extremities to inspection; No swelling Extremities: normal pulses, edema, other (bilateral foot drop); No tenderness Neurological: other (non-verbal; nods to simple questions and mouths out words; follows simple commands) Skin: nl turgor, other (intertrigo on perineal area which is covered with Calmoseptine; BLE SCDs in place; wounds - nurses notes and photos reviewed in chart) Results Result Diagram: 06/26/18 0650 06/27/18 0615 Results 24hrs Laboratory Tests Test 06/27/18 06:15 06/27/18 14:00 Sodium Level 135 Potassium Level 3.6 Chloride Level 105 Carbon Dioxide Level 19 L Anion Gap 11 Blood Urea Nitrogen 57 H Creatinine 1.54 H Est Glomerular Filtrat Rate mL/min Glucose Level 110 Calcium Level 9.7 Total Bilirubin 0.2 Direct Bilirubin 0.00 Indirect Bilirubin 0.2 Aspartate Amino Transf (AST/SGOT) 16 Alanine Aminotransferase (ALT/SGPT) < 6 L Alkaline Phosphatase 139 H Total Protein 7.4 Albumin 3.2 L Globulin 4.20 H Albumin/Globulin Ratio 0.76 Magnesium Level 1.9 Medications Medication Current Medications IV Flush (NS 10 ml) 10 ml PRN IV ; Start 05/06/18 at 20:30 Ascorbic Acid (Vitamin C) 500 mg DAILY GTB Last administered on 06/27/18at 08:59; Admin Dose 500 MG; Start 05/07/18 at 09:00 Albuterol/ Ipratropium (Duoneb) 3 ml Q2H RESP THERAPY PRN HHN SHORTNESS OF BREATH Last administered on 06/22/18at 11:03; Admin Dose 3 ML; Start 05/06/18 at 23:30 Zinc Sulfate (Zinc Sulfate) 220 mg DAILY GTB Last administered on 06/27/18 08:59; Admin Dose 220 MG; Start 05/07/18 at 09:00 Ondansetron HCl (Zofran Tab) 4 mg Q6H PRN GTB NAUSEA AND/OR VOMITING Last administered on 05/31/18 16:47; Admin Dose 4 MG; Start 05/07/18 at 00:15 Multivitamins (Multivitamin) 30 ml DAILY GTB Last administered on 06/27/18 09:01; Admin Dose 30 ML; Start 05/07/18 at 09:00 [facility] This patient goldman... PRN PRN XX WOUND CARE; Start 05/09/18 at 17:00 Spironolactone (Aldactone) 50 mg DAILY GTB Last administered on 06/27/18 09:00 ; Admin Dose 50 MG; Start 05/21/18 at 09:00 Famotidine (Pepcid) 20 mg DAILY PEG Last administered on 06/27/18 08:59; Admin Dose 20 MG; Start 05/23/18 at 09:00 Morphine Sulfate (morphine) 6 mg Q4H PRN PEG SEVERE PAIN LEVEL 7-10 Last administered on 06/27/18 06:03; Admin Dose 6 MG; Start 05/22/18 at 17:00 Albumin Human 100 ml @ 100 mls/hr DURING DIALYSIS PRN IV hypotension on hd Last administered on 05/29/18 14:49; Admin Dose 100 MLS/HR; Start 05/27/18 at 07:30 Cholestyramine Resin (Questran Light) 4 gm 0600,1200,1800,2300 PO Last administered on 06/27/18 12:31; Admin Dose 4 GM; Start 05/27/18 at 18:00 Lorazepam (Ativan) 0.5 mg Q4H PRN IV ANXIETY Last administered on 06/26/18 19:44; Admin Dose 0.5 MG; Start 05/30/18 at 12:00 Acetaminophen (Tylenol Tab) 650 mg Q4H PRN PO MILD PAIN(1-3)OR ELEVATED TEMP Last administered on 06/10/18 21:44; Admin Dose 650 MG; Start 05/31/18 at 13:00 Metoclopramide HCl (Reglan) 5 mg Q6 IV Last administered on 06/27/18 12:31; Admin Dose 5 MG; Start 05/31/18 at 13:00 Collagenase (Santyl) 1 applic DAILY TOP Last administered on 06/26/18 09:11; Admin Dose 1 APPLIC; Start 06/01/18 at 09:00 Clonidine (Catapres) 0.1 mg Q6H PRN PO ELEVATED BLOOD PRESSURE Last administered on 06/17/18 05:59; Admin Dose 0.1 MG; Start 06/03/18 at 03:30 Bumetanide (Bumex) 1 mg BID DIURETICS GTB Last administered on 06/27/18 05:14; Admin Dose 1 MG; Start 06/11/18 at 18:00 Amiodarone HCl (Cordarone) 200 mg Q12 PO Last administered on 06/27/18 09:01; Admin Dose 200 MG; Start 06/12/18 at 21:00 Collagenase (Santyl) 1 applic PRN PRN TOP WHEN SOILED; Start 06/13/18 at 01:00 Nystatin (Nystatin Powder) 1 applic BID TOP Last administered on 06/27/18 09:02; Admin Dose 1 APPLIC; Start 06/13/18 at 14:00 Vancomycin HCl (Vancomycin Oral Syringe) 250 mg DAILY GTB Last administered on 06/27/18 09:01; Admin Dose 250 MG; Start 06/22/18 at 09:00; Stop 06/29/18 at 08: 59 Vancomycin HCl (Vancomycin Oral Syringe) 250 mg Q48H GTB ; Start 06/29/18 at 14:00; Stop 07/06/18 at 13:59 Epoetin Zen-epbx (RETACRIT(esrd)) 20,000 unit Tu@1700 SC Last administered on 06/23/18 17:41; Admin Dose 20,000 UNIT; Start 06/16/18 at 18:30 Miscellaneous Information (*Order Clarification Bulletin) MEDICATION REQUIRES CLARIFICATION:PLE... Q8H XX Last administered on 06/22/18 23:27; Admin Dose 1 EA; Start 06/20/18 at 09:30 Amlodipine Besylate (Norvasc) 2.5 mg DAILY PO Last administered on 06/27/18at 09:00; Admin Dose 2.5 MG; Start 06/25/18 at 09:00 Metoprolol Tartrate (Lopressor) 75 mg BID GTB Last administered on 06/27/18at 09:00; Admin Dose 75 MG; Start 06/24/18 at 21:00 Miscellaneous Information 1 ea NOTE XX ; Start 06/26/18 at 08:00 Miscellaneous Information (*Order Clarification Bulletin) MEDICATION REQUIRES CLARIFICATI... Q8H XX ; Start 06/26/18 at 18:30 LAURA JOSHI NP June 27, 2018 15:35
--- NOTE | 2018-06-27 16:48 | CONS ---
Assessment/Plan Assessment/Plan Assessment/Plan (Daily) Interval hx: Diarrhea has stopped, formed brown per RN. No signs of GI bleeding 1. ABD pain -CT of abd 2. Renal failure.- on HD 3. Vent dependent resp failure 4. Chronic obstructive pulmonary disease. 5. Bipolar. 6. Paroxysmal atrial fibrillation. 7. Anemia of chronic disease. 8. CHF 9. Diarrhea 11. Diarrhea -s/p c diff colitis -taper off of vanco 12. H/O deep esophageal ulcer 13. Dysphagia with g tube 14. Anemia of chronic disease 15. UTI with positive cx CT of abd/pelvis 06/16 1. Nonspecific bibasilar ground-glass densities and the airspace disease, suggesting bilateral pneumonia versus pulmonary edema. 2. Atrophy of the left kidney. 2.3 cm left renal cyst. The right kidney demonstrates compensatory hypertrophy. No calculus or hydronephrosis in either kidney. 3. Atherosclerosis of the aorta. 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 No leak or rupture. 4. Mild nonspecific ascites in the pelvis. 5. Air-fluid levels are seen throughout the small bowel and colon. Consider mild ileus versus enterocolitis. PLAN: Continue with reglan and pepcid Monitor tube feeds residuals q 6 carlos We will start her on Bentyl 20 mg 3 times daily Consultation Date/Type/Reason Admit Date/Time May 06, 2018 at 17:38 Initial Consult Date 05/10/18 Requesting Provider: ROLAND GIRON MD Date/Time of Note DATE: 06/27/18 TIME: 16:47 24 HR Interval Summary Free Text/Dictation Patient complains of abdominal pain, no nausea no vomiting Exam/Review of Systems Exam Vitals Vital Signs Date Temp Pulse Resp B/P (MAP) Pulse Ox O2 O2 Flow FiO2 Time Delivery Rate 06/27/18 98.9 89 18 149/76 100 15:53 (100) 06/27/18 30 15:53 06/25/18 Mechanical 16:06 Ventilator Intake and Output 06/26/18 06/26/18 06/27/18 1515:00 23:00 07:00 IntakeIntake Total 810 ml 690 ml OutputOutput Total 950 ml 900 ml BalanceBalance -140 ml -210 ml Constitutional: alert, oriented Respiratory: diminished breath sounds Gastrointestinal: soft, nl liver, spleen, non-tender Musculoskeletal: nl extremities to inspection, nl gait and stance Results Result Diagram: 06/26/18 0650 06/27/18 0615 Results 24hrs Laboratory Tests Test 06/27/18 06:15 06/27/18 14:00 Sodium Level 135 Potassium Level 3.6 Chloride Level 105 Carbon Dioxide Level 19 L Anion Gap 11 Blood Urea Nitrogen 57 H Creatinine 1.54 H Est Glomerular Filtrat Rate mL/min Glucose Level 110 Calcium Level 9.7 Total Bilirubin 0.2 Direct Bilirubin 0.00 Indirect Bilirubin 0.2 Aspartate Amino Transf (AST/SGOT) 16 Alanine Aminotransferase (ALT/SGPT) < 6 L Alkaline Phosphatase 139 H Total Protein 7.4 Albumin 3.2 L Globulin 4.20 H Albumin/Globulin Ratio 0.76 Magnesium Level 1.9 Medications Medication Current Medications IV Flush (NS 10 ml) 10 ml PRN IV ; Start 05/06/18 at 20:30 Ascorbic Acid (Vitamin C) 500 mg DAILY GTB Last administered on 06/27/18at 08:59; Admin Dose 500 MG; Start 05/07/18 at 09:00 Albuterol/ Ipratropium (Duoneb) 3 ml Q2H RESP THERAPY PRN HHN SHORTNESS OF BREATH Last administered on 06/22/18at 11:03; Admin Dose 3 ML; Start 05/06/18 at 23:30 Zinc Sulfate (Zinc Sulfate) 220 mg DAILY GTB Last administered on 06/27/18at 08:59; Admin Dose 220 MG; Start 05/07/18 at 09:00 Ondansetron HCl (Zofran Tab) 4 mg Q6H PRN GTB NAUSEA AND/OR VOMITING Last administered on 05/31/18at 16:47; Admin Dose 4 MG; Start 05/07/18 at 00:15 Multivitamins (Multivitamin) 30 ml DAILY GTB Last administered on 06/27/18at 09:01; Admin Dose 30 ML; Start 05/07/18 at 09:00 Miscellaneous Information (Pending Santyl Order For Wound Care) This patient goldman... PRN PRN XX WOUND CARE; Start 05/09/18 at 17:00 Spironolactone (Aldactone) 50 mg DAILY GTB Last administered on 06/27/18at 09:00; Admin Dose 50 MG; Start 05/21/18 at 09:00 Famotidine (Pepcid) 20 mg DAILY PEG Last administered on 06/27/18 08:59; Admin Dose 20 MG; Start 05/23/18 at 09:00 Morphine Sulfate (morphine) 6 mg Q4H PRN PEG SEVERE PAIN LEVEL 7-10 Last administered on 06/27/18 15:52; Admin Dose 6 MG; Start 05/22/18 at 17:00 Albumin Human 100 ml @ 100 mls/hr DURING DIALYSIS PRN IV hypotension on hd Last administered on 05/29/18 14:49; Admin Dose 100 MLS/HR; Start 05/27/18 at 07:30 Cholestyramine Resin (Questran Light) 4 gm 0600,1200,1800,2300 PO Last administered on 06/27/18 12:31; Admin Dose 4 GM; Start 05/27/18 at 18:00 Lorazepam (Ativan) 0.5 mg Q4H PRN IV ANXIETY Last administered on 06/26/18 19:44; Admin Dose 0.5 MG; Start 05/30/18 at 12:00 Acetaminophen (Tylenol Tab) 650 mg Q4H PRN PO MILD PAIN(1-3)OR ELEVATED TEMP Last administered on 06/10/18 21:44; Admin Dose 650 MG; Start 05/31/18 at 13:00 Metoclopramide HCl (Reglan) 5 mg Q6 IV Last administered on 06/27/18 12:31; Admin Dose 5 MG; Start 05/31/18 at 13:00 Collagenase (Santyl) 1 applic DAILY TOP Last administered on 06/26/18 09:11; Admin Dose 1 APPLIC; Start 06/01/18 at 09:00 Clonidine (Catapres) 0.1 mg Q6H PRN PO ELEVATED BLOOD PRESSURE Last administered on 06/17/18 05:59; Admin Dose 0.1 MG; Start 06/03/18 at 03:30 Bumetanide (Bumex) 1 mg BID DIURETICS GTB Last administered on 06/27/18 05:14; Admin Dose 1 MG; Start 06/11/18 at 18:00 Amiodarone HCl (Cordarone) 200 mg Q12 PO Last administered on 06/27/18 09:01; Admin Dose 200 MG; Start 06/12/18 at 21:00 Collagenase (Santyl) 1 applic PRN PRN TOP WHEN SOILED; Start 06/13/18 at 01:00 Nystatin (Nystatin Powder) 1 applic BID TOP Last administered on 06/27/18at 09:02; Admin Dose 1 APPLIC; Start 06/13/18 at 14:00 Vancomycin HCl (Vancomycin Oral Syringe) 250 mg DAILY GTB Last administered on 06/27/18 09:01; Admin Dose 250 MG; Start 06/22/18 at 09:00; Stop 06/29/18 at 08:59 Vancomycin HCl (Vancomycin Oral Syringe) 250 mg Q48H GTB ; Start 06/29/18 at 14:00; Stop 07/06/18 at 13:59 Epoetin Zen-epbx (RETACRIT(esrd)) 20,000 unit Tu@1700 SC Last administered on 06/23/18at 17:41; Admin Dose 20,000 UNIT; Start 06/16/18 at 18:30 Miscellaneous Information (*Order Clarification Bulletin) MEDICATION REQUIRES CLARIFICATION:PLE... Q8H XX Last administered on 06/22/18at 23:27; Admin Dose 1 EA; Start 06/20/18 at 09:30 Amlodipine Besylate (Norvasc) 2.5 mg DAILY PO Last administered on 06/27/18 09:00; Admin Dose 2.5 MG; Start 06/25/18 at 09:00 Metoprolol Tartrate (Lopressor) 75 mg BID GTB Last administered on 06/27/18 09:00; Admin Dose 75 MG; Start 06/24/18 at 21:00 Miscellaneous Information 1 ea NOTE XX ; Start 06/26/18 at 08:00 Miscellaneous Information (*Order Clarification Bulletin) MEDICATION REQUIRES CLARIFICATI... Q8H XX ; Start 06/26/18 at 18:30 QUINTEN UMAÑA MD June 27, 2018 16:48
[2018-06-27] MEDS: CHOLESTYRAMINE (LIGHT) 4 GM PACKET GTB SCH ×2 (17:34→22:40)
[2018-06-27] MEDS: LORAZEPAM 2 MG INJ IV PRN (19:43)
[2018-06-27] MEDS: ALBUTEROL/IPRATROPIUM (NEB) 3 ML AMP HHN PRN (20:12)
--- NOTE | 2018-06-27 22:27 | CONS ---
Consult Date/Type/Reason Admit Date/Time May 06, 2018 at 17:38 Initial Consult Date 05/10/18 Type of Consultation: Pulm/CCM Requesting Provider: ROLAND GIRON MD Date/Time of Note DATE: 06/27/18 TIME: 22:26 Subjective No events on the vent. Objective Vitals Vital Signs Date Temp Pulse Resp B/P (MAP) Pulse Ox O2 O2 Flow FiO2 Time Delivery Rate 06/27/18 98.0 72 20 128/72 98 21:27 (90) 06/27/18 30 17:26 06/25/18 Mechanical 16:06 Ventilator Intake and Output 06/26/18 06/26/18 06/27/18 1515:00 23:00 07:00 IntakeIntake Total 810 ml 690 ml OutputOutput Total 950 ml 900 ml BalanceBalance -140 ml -210 ml Exam HEENT: Neck supple; no JVD; no LAD: + trach CVS: Irreg irreg, S1 and S2 CHEST: Coarse BS B/L ABD: Soft, NT, + BS EXT: No c/c; + edema Results/Medications Result Diagram: 06/26/18 0650 06/27/18 0615 Results 24 hrs Laboratory Tests Test 06/27/18 06:15 06/27/18 14:00 Sodium Level 135 Potassium Level 3.6 Chloride Level 105 Carbon Dioxide Level 19 L Anion Gap 11 Blood Urea Nitrogen 57 H Creatinine 1.54 H Est Glomerular Filtrat Rate mL/min Glucose Level 110 Calcium Level 9.7 Total Bilirubin 0.2 Direct Bilirubin 0.00 Indirect Bilirubin 0.2 Aspartate Amino Transf (AST/SGOT) 16 Alanine Aminotransferase (ALT/SGPT) < 6 L Alkaline Phosphatase 139 H Total Protein 7.4 Albumin 3.2 L Globulin 4.20 H Albumin/Globulin Ratio 0.76 Magnesium Level 1.9 Home Meds Reported Medications Zinc Sulfate* (Zinc Sulfate*) 220 Mg Tablet, 220 MG GTB DAILY, TAB START DATE 05/04/18, END DATE 06/03/18 05/06/18 Diclofenac Sodium* (Voltaren* Gel) 1% -100 Gm Gel, 2 GM TOP TID, #1 TUB 05/06/18 Ascorbic Acid (Vitamin C) 500 Mg Tab, 500 MG GTB DAILY, TAB 05/06/18 Quetiapine Fumarate* (Seroquel*) 100 Mg Tablet, 600 MG GTB HS, #30 TAB 05/06/18 Protein Supplement (Promod) 946 Ml Liquid, 30 ML GTB BID 05/06/18 Epoetin Zen (Procrit) 20,000 Unit/1 Ml Vial, 81535 UNIT IJ Q TUE for FOR ANEMIA OF CKD, VIAL HOLD IFHGB IS EQUAL OR GREATER THAN 11 05/06/18 Ondansetron Hcl* (Ondansetron Hcl* Liq) 4 Mg/5 Ml Solution, 4 MG GTB Q6H PRN for NAUSEA AND/OR VOMITING, ML 05/06/18 Multivitamin with Minerals (Multivitamins with Minerals) 1 Each Tablet, 1 EACH GTB QAM, TAB 05/06/18 Metoprolol Tartrate* (Lopressor*) 25 Mg Tab, 25 MG GTB BID, #60 TAB HOLD FOR SBP<110 OR HR<60 05/06/18 Lorazepam* (Ativan* Intensol) 2 Mg/Ml Soln, 0.5 MG IV* Q6H PRN for ANXIETY, #1 BOTTLE START DATE 04/02/18, END DATE 06/01/18 05/06/18 Lidocaine (Lidocaine) 1 Each Adh..patch, 1 EACH TP Q12H 5% 05/06/18 Ipratropium-Albuterol (Ipratropium-Albuterol) 0.5-3 Mg/3 Ml Ampul.neb, 3 ML INHALATION Q6 PRN for BRONCHOSPASM, #30 VIAL 05/06/18 Ipratropium-Albuterol (Ipratropium-Albuterol) 0.5-3 Mg/3 Ml Ampul.neb, 3 ML INHALATION Q2H PRN for BRONCHOSPASM, #30 VIAL 05/06/18 Famotidine* (Famotidine*) 20 Mg Tablet, 20 MG GTB BID, #60 TAB 05/06/18 Valproic Acid* (Depakene*) 250 Mg/5 Ml Udc Syrup, 100 MG GTB QHS, ML 05/06/18 Clonidine Hcl* (Clonidine Hcl*) 0.1 Mg Tab, 0.1 MG GTB Q6 PRN for NEEDED, TAB FOR SBP>160 OR DBP>90 05/06/18 Aspirin* (Aspirin* Chew) 81 Mg Tab.chew, 81 MG GTB DAILY, TAB.CHEW 05/06/18 Medications Current Medications IV Flush (NS 10 ml) 10 ml PRN IV ; Start 05/06/18 at 20:30 Ascorbic Acid (Vitamin C) 500 mg DAILY GTB Last administered on 06/27/18 08:59; Admin Dose 500 MG; Start 05/07/18 at 09:00 Albuterol/ Ipratropium (Duoneb) 3 ml Q2H RESP THERAPY PRN HHN SHORTNESS OF BREATH Last administered on 06/27/18 20:12; Admin Dose 3 ML; Start 05/06/18 at 23:30 Zinc Sulfate (Zinc Sulfate) 220 mg DAILY GTB Last administered on 06/27/18 08:59; Admin Dose 220 MG; Start 05/07/18 at 09:00 Ondansetron HCl (Zofran Tab) 4 mg Q6H PRN GTB NAUSEA AND/OR VOMITING Last administered on 05/31/18 16:47; Admin Dose 4 MG; Start 05/07/18 at 00:15 Multivitamins (Multivitamin) 30 ml DAILY GTB Last administered on 06/27/18 09:01; Admin Dose 30 ML; Start 05/07/18 at 09:00 Miscellaneous Information (Pending [facility] Order For Wound Care) This patient goldman... PRN PRN XX WOUND CARE; Start 05/09/18 at 17:00 Spironolactone (Aldactone) 50 mg DAILY GTB Last administered on 06/27/18 09:00; Admin Dose 50 MG; Start 05/21/18 at 09:00 Famotidine (Pepcid) 20 mg DAILY PEG Last administered on 06/27/18 08:59; Admin Dose 20 MG; Start 05/23/18 at 09:00 Morphine Sulfate (morphine) 6 mg Q4H PRN PEG SEVERE PAIN LEVEL 7-10 Last administered on 06/27/18 15:52; Admin Dose 6 MG; Start 05/22/18 at 17:00 Albumin Human 100 ml @ 100 mls/hr DURING DIALYSIS PRN IV hypotension on hd Last administered on 05/29/18 14:49; Admin Dose 100 MLS/HR; Start 05/27/18 at 07:30 Lorazepam (Ativan) 0.5 mg Q4H PRN IV ANXIETY Last administered on 06/27/18 19:43; Admin Dose 0.5 MG; Start 05/30/18 at 12:00 Acetaminophen (Tylenol Tab) 650 mg Q4H PRN PO MILD PAIN(1-3)OR ELEVATED TEMP Last administered on 06/10/18 21:44; Admin Dose 650 MG; Start 05/31/18 at 13:00 Metoclopramide HCl (Reglan) 5 mg Q6 IV Last administered on 06/27/18 17:34; Admin Dose 5 MG; Start 05/31/18 at 13:00 Collagenase (Santyl) 1 applic DAILY TOP Last administered on 06/26/18 09:11; Admin Dose 1 APPLIC; Start 06/01/18 at 09:00 Clonidine (Catapres) 0.1 mg Q6H PRN PO ELEVATED BLOOD PRESSURE Last administered on 06/17/18 05:59; Admin Dose 0.1 MG; Start 06/03/18 at 03:30 Bumetanide (Bumex) 1 mg BID DIURETICS GTB Last administered on 06/27/18 17:34; Admin Dose 1 MG; Start 06/11/18 at 18:00 Amiodarone HCl (Cordarone) 200 mg Q12 PO Last administered on 06/27/18 19:44; Admin Dose 200 MG; Start 06/12/18 at 21:00 Collagenase (Santyl) 1 applic PRN PRN TOP WHEN SOILED; Start 06/13/18 at 01:00 Nystatin (Nystatin Powder) 1 applic BID TOP Last administered on 06/27/18 19:42; Admin Dose 1 APPLIC; Start 06/13/18 at 14:00 Vancomycin HCl (Vancomycin Oral Syringe) 250 mg DAILY GTB Last administered on 06/27/18 09:01; Admin Dose 250 MG; Start 06/22/18 at 09:00; Stop 06/29/18 at 08:59 Vancomycin HCl (Vancomycin Oral Syringe) 250 mg Q48H GTB ; Start 06/29/18 at 14:00; Stop 07/06/18 at 13:59 Epoetin Zen-epbx (RETACRIT(esrd)) 20,000 unit Tu@1700 SC Last administered on 06/23/18 17:41; Admin Dose 20,000 UNIT; Start 06/16/18 at 18:30 Miscellaneous Information (*Order Clarification Bulletin) MEDICATION REQUIRES CLARIFICATION:PLE... Q8H XX Last administered on 06/22/18at 23:27; Admin Dose 1 EA; Start 06/20/18 at 09:30 Amlodipine Besylate (Norvasc) 2.5 mg DAILY PO Last administered on 06/27/18at 09:00; Admin Dose 2.5 MG; Start 06/25/18 at 09:00 Metoprolol Tartrate (Lopressor) 75 mg BID GTB Last administered on 06/27/18at 19:44; Admin Dose 75 MG; Start 06/24/18 at 21:00 Miscellaneous Information 1 ea NOTE XX ; Start 06/26/18 at 08:00 Dicyclomine HCl (Bentyl) 20 mg Q8 PO ; Start 06/27/18 at 22:00 Cholestyramine Resin (Questran Light) 4 gm 0600,1200,1800,2300 GTB Last administered on 06/27/18at 17:34; Admin Dose 4 GM; Start 06/27/18 at 18:00 Assessment/Plan Assessment/Plan (Daily) IMP: 1. Sepsis 2. Acute Renal Failure 3. VDRF 4. Encephalopathy 5. Anemia 6. H/O abdominal abscess 7. Atrial fibrillation with RVR RECS: 1. Vent support 2. CPT/suctioning 3. TF/Free H20 4. Rate control as per CV SALENA IRAHETA MD June 27, 2018 22:27
[2018-06-27] MEDS: DICYCLOMINE 10 MG CAP PO SCH (22:39)
[2018-06-28] VITALS (22 sets, daily range): BP systolic 102–128; BP diastolic 56–69; PULSE 63–74; RESP 17–28
[2018-06-28] MEDS: BUMETANIDE 1 MG TAB GTB SCH ×2 (05:20→17:58)
[2018-06-28] MEDS: METOCLOPRAMIDE 10 MG INJ IV SCH ×4 (05:21→23:10)
[2018-06-28] MEDS: DICYCLOMINE 10 MG CAP PO SCH ×3 (05:21→22:00)
[2018-06-28] MEDS: CHOLESTYRAMINE (LIGHT) 4 GM PACKET GTB SCH ×4 (05:26→23:09)
--- NOTE | 2018-06-28 05:34 | PN ---
Date/Time of Note Date/Time of Note DATE: 06/28/18 TIME: 05:33 Assessment/Plan VTE Prophylaxis Risk score (from Ns)>0 risk: 12 SCD applied (from [facility] [place]): Yes SCD contraindicated: other Pharmacological prophylaxis: other Pharm contraindication: other Lines/Catheters IV Catheter Type (from [facility]): PICC Line Central line still needed: Yes Urinary Cath still in place: Yes Reason Cath still needed: urinary retention Assessment/Plan Assessment/Plan - MDR Klebsiella urinary tract infection, completed treatment with amikacin. Dr. Walton is following in infectious consultation. - Hypokalemia- resolved - Acute abdominal pain - CT showed Air-fluid levels are seen throughout the small bowel and colon. Consider mild ileus versus enterocolitis. - NPO/ IVF - per GI - cont to monitor -Atrial fibrillation was rapid ventricular response, s/p amiodarone drip. Rate is well controlled on p.o. amiodarone and metoprolol. - Dr. Scanlon is following in cardiology consultation. -Septic shock secondary to urinary tract infection, anterior neck soft tissue infection, and C. difficile colitis, resolving. - Continue antibiotics per ID. Dr. Brian Doyle is following in infection disease consultation. -Acute respiratory failure requiring intubation and ventilatory support. - Dr. Lambert is following in pulmonology consultation. -S/p tracheostomy on 05/29/18. -Acute kidney injury on chronic kidney disease. Started on HD this admission. - Dr. Mckeon is following in nephrology consultation. -Anemia of chronic inflammation, stool for OB is negative, status post blood transfusion. Continue Epogen. -Metabolic acidosis, resolved. -Acute diastolic congestive heart failure. -Paroxysmal atrial fibrillation -COPD -Dysphagia with PEG. -G-tube mild malfunction, changed by GI Dr. Carolina is following in gastroenterology consultation. -Obesity- weight management Patient is seen in collaboration with Dr Eisenberg. staff. Further recommendations based on clinical course. Result Diagram: 06/26/18 0650 06/27/18 0615 Results 24hrs Laboratory Tests Test 06/27/18 06:15 06/27/18 14:00 Sodium Level 135 Potassium Level 3.6 Chloride Level 105 Carbon Dioxide Level 19 L Anion Gap 11 Blood Urea Nitrogen 57 H Creatinine 1.54 H Est Glomerular Filtrat Rate mL/min Glucose Level 110 Calcium Level 9.7 Total Bilirubin 0.2 Direct Bilirubin 0.00 Indirect Bilirubin 0.2 Aspartate Amino Transf (AST/SGOT) 16 Alanine Aminotransferase (ALT/SGPT) < 6 L Alkaline Phosphatase 139 H Total Protein 7.4 Albumin 3.2 L Globulin 4.20 H Albumin/Globulin Ratio 0.76 Magnesium Level 1.9 Subjective 24 Hr Interval Summary Free Text/Dictation got Ativan for agitation - ok now refuses daily care at times afebrile CR 1.54 today refuses ADLs at times no new events reported last night dw staff Exam/Review of Systems Exam Vitals Vital Signs Date Temp Pulse Resp B/P (MAP) Pulse Ox O2 O2 Flow FiO2 Time Delivery Rate 06/28/18 68 22 100 30 04:56 06/28/18 97.8 102/56 01:00 (71) 06/25/18 Mechanical 16:06 Ventilator Intake and Output 06/27/18 06/27/18 06/28/18 1515:00 23:00 07:00 IntakeIntake Total 110 ml 780 ml OutputOutput Total 800 ml BalanceBalance 110 ml -20 ml Constitutional: alert, frail Psych: nl mood/affect Eyes: nl lids, nl sclera ENMT: nl external ears & nose Neck: non-tender, other (trach intact) Respiratory: clear to auscultation Cardiovascular: nl pulses, other (s1s2) Gastrointestinal: soft, other (gt intact) Musculoskeletal: muscle weakness, range of motion Extremities: normal pulses Neurological: confused Lymph: nontender Results Results 24hrs Laboratory Tests Test 06/27/18 06:15 06/27/18 14:00 Sodium Level 135 Potassium Level 3.6 Chloride Level 105 Carbon Dioxide Level 19 L Anion Gap 11 Blood Urea Nitrogen 57 H Creatinine 1.54 H Est Glomerular Filtrat Rate mL/min Glucose Level 110 Calcium Level 9.7 Total Bilirubin 0.2 Direct Bilirubin 0.00 Indirect Bilirubin 0.2 Aspartate Amino Transf (AST/SGOT) 16 Alanine Aminotransferase (ALT/SGPT) < 6 L Alkaline Phosphatase 139 H Total Protein 7.4 Albumin 3.2 L Globulin 4.20 H Albumin/Globulin Ratio 0.76 Magnesium Level 1.9 Medications Medication Current Medications IV Flush (NS 10 ml) 10 ml PRN IV ; Start 05/06/18 at 20:30 Ascorbic Acid (Vitamin C) 500 mg DAILY GTB Last administered on 06/27/18 08: 59; Admin Dose 500 MG; Start 05/07/18 at 09:00 Albuterol/ Ipratropium (Duoneb) 3 ml Q2H RESP THERAPY PRN HHN SHORTNESS OF BREATH Last administered on 06/27/18 20:12; Admin Dose 3 ML; Start 05/06/18 at 23:30 Zinc Sulfate (Zinc Sulfate) 220 mg DAILY GTB Last administered on 06/27/18 08:59; Admin Dose 220 MG; Start 05/07/18 at 09:00 Ondansetron HCl (Zofran Tab) 4 mg Q6H PRN GTB NAUSEA AND/OR VOMITING Last administered on 05/31/18 16:47; Admin Dose 4 MG; Start 05/07/18 at 00:15 Multivitamins (Multivitamin) 30 ml DAILY GTB Last administered on 06/27/18 09:01; Admin Dose 30 ML; Start 05/07/18 at 09:00 [facility]iscellaneous [facility] This patient goldman... PRN PRN XX WOUND CARE; Start 05/09/18 at 17:00 Spironolactone (Aldactone) 50 mg DAILY GTB Last administered on 06/27/18 09:00; Admin Dose 50 MG; Start 05/21/18 at 09:00 Famotidine (Pepcid) 20 mg DAILY PEG Last administered on 06/27/18 08:59; Admin Dose 20 MG; Start 05/23/18 at 09:00 Morphine Sulfate (morphine) 6 mg Q4H PRN PEG SEVERE PAIN LEVEL 7-10 Last administered on 06/27/18 15:52; Admin Dose 6 MG; Start 05/22/18 at 17:00 Albumin Human 100 ml @ 100 mls/hr DURING DIALYSIS PRN IV hypotension on hd Last administered on 05/29/18 14:49; Admin Dose 100 MLS/HR; Start 05/27/18 at 07:30 Lorazepam (Ativan) 0.5 mg Q4H PRN IV ANXIETY Last administered on 06/27/18 19:43; Admin Dose 0.5 MG; Start 05/30/18 at 12:00 Acetaminophen (Tylenol Tab) 650 mg Q4H PRN PO MILD PAIN(1-3)OR ELEVATED TEMP Last administered on 06/10/18 21:44; Admin Dose 650 MG; Start 05/31/18 at 13:00 Metoclopramide HCl (Reglan) 5 mg Q6 IV Last administered on 06/28/18 05:21; Admin Dose 5 MG; Start 05/31/18 at 13:00 Collagenase (Santyl) 1 applic DAILY TOP Last administered on 06/26/18 09:11; Admin Dose 1 APPLIC; Start 06/01/18 at 09:00 Clonidine (Catapres) 0.1 mg Q6H PRN PO ELEVATED BLOOD PRESSURE Last administered on 06/17/18 05:59; Admin Dose 0.1 MG; Start 06/03/18 at 03:30 Bumetanide (Bumex) 1 mg BID DIURETICS GTB Last administered on 06/28/18 05:20; Admin Dose 1 MG; Start 06/11/18 at 18:00 Amiodarone HCl (Cordarone) 200 mg Q12 PO Last administered on 06/27/18 19:44; Admin Dose 200 MG; Start 06/12/18 at 21:00 Collagenase (Santyl) 1 applic PRN PRN TOP WHEN SOILED; Start 06/13/18 at 01:00 Nystatin (Nystatin Powder) 1 applic BID TOP Last administered on 06/27/18 19:42; Admin Dose 1 APPLIC; Start 06/13/18 at 14:00 Vancomycin HCl (Vancomycin Oral Syringe) 250 mg DAILY GTB Last administered on 06/27/18 09:01; Admin Dose 250 MG; Start 06/22/18 at 09:00; Stop 06/29/18 at 08:59 Vancomycin HCl (Vancomycin Oral Syringe) 250 mg Q48H GTB ; Start 06/29/18 at 14:00; Stop 07/06/18 at 13:59 Epoetin Zen-epbx (RETACRIT(esrd)) 20,000 unit Tu@1700 SC Last administered on 06/23/18 17:41; Admin Dose 20,000 UNIT; Start 06/16/18 at 18:30 Miscellaneous Information (*Order Clarification Bulletin) MEDICATION REQUIRES CLARIFICATION:PLE... Q8H XX Last administered on 06/22/18 23:27; Admin Dose 1 EA; Start 06/20/18 at 09:30 Amlodipine Besylate (Norvasc) 2.5 mg DAILY PO Last administered on 06/27/18at 09:00; Admin Dose 2.5 MG; Start 06/25/18 at 09:00 Metoprolol Tartrate (Lopressor) 75 mg BID GTB Last administered on 06/27/18at 19:44; Admin Dose 75 MG; Start 06/24/18 at 21:00 Miscellaneous Information 1 ea NOTE XX ; Start 06/26/18 at 08:00 Dicyclomine HCl (Bentyl) 20 mg Q8 PO Last administered on 06/28/18at 05:21; Admin Dose 20 MG; Start 06/27/18 at 22:00 Cholestyramine Resin (Questran Light) 4 gm 0600,1200,1800,2300 GTB Last administered on 06/28/18at 05:26; Admin Dose 4 GM; Start 06/27/18 at 18:00 KERON MORAN June 28, 2018 05:34
[2018-06-28] MEDS: COLLAGENASE 5 GM (UD JAR) TOP SCH (09:00)
[2018-06-28] MEDS: MULTIVITAMINS 30 ML CUP GTB SCH (09:01)
[2018-06-28] MEDS: METOPROLOL 25 MG TAB GTB SCH ×2 (09:01→19:54)
[2018-06-28] MEDS: ZINC SULFATE 220 MG CAP GTB SCH (09:01)
[2018-06-28] MEDS: SPIRONOLACTONE 25 MG TAB GTB SCH (09:01)
[2018-06-28] MEDS: ASCORBIC ACID 500 MG TAB GTB SCH (09:01)
[2018-06-28] MEDS: VANCOMYCIN HCL 250 MG/5ML POSYG GTB SCH (09:01)
[2018-06-28] MEDS: FAMOTIDINE 20 MG TAB PEG SCH (09:01)
[2018-06-28] MEDS: AMIODARONE 200 MG TAB PO SCH ×2 (09:02→19:54)
[2018-06-28] MEDS: NYSTATIN 30 GM POWDER BTL TOP SCH ×2 (09:02→19:55)
[2018-06-28] MEDS: BALSAM PERU/CASTOR OIL 60 GM TUBE TOP SCH ×2 (09:02→19:55)
[2018-06-28] MEDS: AMLODIPINE 2.5 MG TAB PO SCH (09:02)
--- NOTE | 2018-06-28 12:06 | CONS ---
Assessment/Plan Assessment/Plan Hospital Course (Demo Recall) 1. Nonoliguric acute kidney injury on top of chronic kidney disease stage IIIB/IV with previous baseline creatinine 2.0 mg/dL. Etiology of acute kidney injury secondary to acute tubular necrosis. The patient is status post hemodialysis. Renal function stabilized. Continue current treatment plans, supportive care, renally dose all medications. 2. Volume overload, improving. Continue Bumex. Continue to give intermittent metolazone as needed. 3. Hyponatremia, improved. Free water flushes were adjusted. Continue to monitor. 4. Anemia. Monitor hemoglobin and hematocrit levels. The patient is completing course of IV Ferrlecit. Will give intermittent Epogen as needed. 5. Mineral bone disorder, monitor calcium and phosphorus levels. 6. Ventilator-dependent respiratory failure. Vent settings and arterial blood gas was reviewed. Continue to monitor. 7. Sepsis, status post shock. The patient is completing antibiotic course. 8. Lower extremity wounds. Continue wound care. 9. Dysphagia. Continue tube feeding. 10. Encephalopathy. Continue to monitor. Consultation Date/Type/Reason Admit Date/Time May 06, 2018 at 17:38 Initial Consult Date 05/10/18 Requesting Provider: ROLAND GIRON MD Date/Time of Note DATE: 06/28/18 TIME: 12:05 24 HR Interval Summary Free Text/Dictation afebrile. no n/v gen nad cv rrr pulm ctab abd soft, nd nt +bs ext: no edema Exam/Review of Systems Exam Vitals Vital Signs Date Temp Pulse Resp B/P (MAP) Pulse Ox O2 O2 Flow FiO2 Time Delivery Rate 06/28/18 70 26 100 30 11:30 06/28/18 98.9 115/57 11:22 (76) 06/25/18 Mechanical 16:06 Ventilator Intake and Output 06/27/18 06/27/18 06/28/18 1414:59 22:59 06:59 IntakeIntake Total 110 ml 780 ml OutputOutput Total 800 ml BalanceBalance 110 ml -20 ml Results Result Diagram: 06/28/1862606/28/18626 Results 24hrs Laboratory Tests Test 06/27/18 14:00 06/28/18 06:27 Magnesium Level 1.9 White Blood Count 7.7 # Red Blood Count 2.48 L Hemoglobin 8.3 L Hematocrit 26.6 L Mean Corpuscular Volume 107.3 H Mean Corpuscular Hemoglobin 33.5 H Mean Corpuscular Hemoglobin Concent 31.2 L Red Cell Distribution Width 23.2 H Platelet Count 302 Mean Platelet Volume 9.7 Immature Granulocytes % 0.400 Neutrophils % 73.4 Lymphocytes % 10.6 L Monocytes % 8.3 Eosinophils % 7.0 Basophils % 0.3 Nucleated Red Blood Cells % 0.0 Immature Granulocytes # 0.030 Neutrophils # 5.7 Lymphocytes # 0.8 Monocytes # 0.6 Eosinophils # 0.5 Basophils # 0.0 Nucleated Red Blood Cells # 0.0 Sodium Level 134 L Potassium Level 3.8 Chloride Level 106 Carbon Dioxide Level 19 L Anion Gap 9 Blood Urea Nitrogen 63 H Creatinine 1.54 H Est Glomerular Filtrat Rate mL/min Glucose Level 102 Calcium Level 9.4 Medications Medication Current Medications IV Flush (NS 10 ml) 10 ml PRN IV ; Start 05/06/18 at 20:30 Ascorbic Acid (Vitamin C) 500 mg DAILY GTB Last administered on 06/28/18 09:01; Admin Dose 500 MG; Start 05/07/18 at 09:00 Albuterol/ Ipratropium (Duoneb) 3 ml Q2H RESP THERAPY PRN HHN SHORTNESS OF BREATH Last administered on 06/27/18 20:12; Admin Dose 3 ML; Start 05/06/18 at 23:30 Zinc Sulfate (Zinc Sulfate) 220 mg DAILY GTB Last administered on 06/28/18 09:01; Admin Dose 220 MG; Start 05/07/18 at 09:00 Ondansetron HCl (Zofran Tab) 4 mg Q6H PRN GTB NAUSEA AND/OR VOMITING Last administered on 05/31/18at 16:47; Admin Dose 4 MG; Start 05/07/18 at 00:15 Multivitamins (Multivitamin) 30 ml DAILY GTB Last administered on 06/28/18 09:01; Admin Dose 30 ML; Start 05/07/18 at 09:00 Miscellaneous Information (Pending Santyl Order For Wound Care) This patient goldman... PRN PRN XX WOUND CARE; Start 05/09/18 at 17:00 Spironolactone (Aldactone) 50 mg DAILY GTB Last administered on 06/28/18 09:01; Admin Dose 50 MG; Start 05/21/18 at 09:00 Famotidine (Pepcid) 20 mg DAILY PEG Last administered on 06/28/18 09:01; Admin Dose 20 MG; Start 05/23/18 at 09:00 Morphine Sulfate (morphine) 6 mg Q4H PRN PEG SEVERE PAIN LEVEL 7-10 Last administered on 06/27/18 15:52; Admin Dose 6 MG; Start 05/22/18 at 17:00 Lorazepam (Ativan) 0.5 mg Q4H PRN IV ANXIETY Last administered on 06/27/18 19:43; Admin Dose 0.5 MG; Start 05/30/18 at 12:00 Acetaminophen (Tylenol Tab) 650 mg Q4H PRN PO MILD PAIN(1-3)OR ELEVATED TEMP Last administered on 06/10/18 21:44; Admin Dose 650 MG; Start 05/31/18 at 13:00 Metoclopramide HCl (Reglan) 5 mg Q6 IV Last administered on 06/28/18 05:21; Admin Dose 5 MG; Start 05/31/18 at 13:00 Collagenase (Santyl) 1 applic DAILY TOP Last administered on 06/26/18 09:11; Admin Dose 1 APPLIC; Start 06/01/18 at 09:00 Clonidine (Catapres) 0.1 mg Q6H PRN PO ELEVATED BLOOD PRESSURE Last administered on 06/17/18 05:59; Admin Dose 0.1 MG; Start 06/03/18 at 03:30 Bumetanide (Bumex) 1 mg BID DIURETICS GTB Last administered on 06/28/18 05:20; Admin Dose 1 MG; Start 06/11/18 at 18:00 Amiodarone HCl (Cordarone) 200 mg Q12 PO Last administered on 06/28/18 09:02; Admin Dose 200 MG; Start 06/12/18 at 21:00 Collagenase (Santyl) 1 applic PRN PRN TOP WHEN SOILED; Start 06/13/18 at 01:00 Nystatin (Nystatin Powder) 1 applic BID TOP Last administered on 06/28/18 0 9:02; Admin Dose 1 APPLIC; Start 06/13/18 at 14:00 Vancomycin HCl (Vancomycin Oral Syringe) 250 mg DAILY GTB Last administered on 06/28/18 09:01; Admin Dose 250 MG; Start 06/22/18 at 09:00; Stop 06/29/18 at 08:59 Vancomycin HCl (Vancomycin Oral Syringe) 250 mg Q48H GTB ; Start 06/29/18 at 14:00; Stop 07/06/18 at 13:59 Epoetin Zen-epbx (RETACRIT(esrd)) 20,000 unit Tu@1700 SC Last administered on 06/23/18 17:41; Admin Dose 20,000 UNIT; Start 06/16/18 at 18:30 Miscellaneous Information (*Order Clarification Bulletin) MEDICATION REQUIRES CLARIFICATION:PLE... Q8H XX Last administered on 06/22/18 23:27; Admin Dose 1 EA; Start 06/20/18 at 09:30 Amlodipine Besylate (Norvasc) 2.5 mg DAILY PO Last administered on 06/28/18 09:02; Admin Dose 2.5 MG; Start 06/25/18 at 09:00 Metoprolol Tartrate (Lopressor) 75 mg BID GTB Last administered on 06/28/18 09:01; Admin Dose 75 MG; Start 06/24/18 at 21:00 Miscellaneous Information 1 ea NOTE XX ; Start 06/26/18 at 08:00 Dicyclomine HCl (Bentyl) 20 mg Q8 PO Last administered on 06/28/18 05:21; Admin Dose 20 MG; Start 06/27/18 at 22:00 Cholestyramine Resin (Questran Light) 4 gm 0600,1200,1800,2300 GTB Last administered on 06/28/18 05:26; Admin Dose 4 GM; Start 06/27/18 at 18:00 ALIZE FLORES MD June 28, 2018 12:06
[2018-06-28] MEDS: LORAZEPAM 2 MG INJ IV PRN ×2 (13:51→19:55)
[2018-06-28] MEDS: ALBUTEROL/IPRATROPIUM (NEB) 3 ML AMP HHN PRN (14:20)
--- NOTE | 2018-06-28 15:37 | CONS ---
[facility] HCIS Consult Follow-up Patient Name: Zuly Mcwilliams Unit Number: [id number] Date of : 1945 Patient Status: Admitted Inpatient Attending Doctor: Roland Giron MD Edit: CELESTINE SANCHEZ M.D. on 06/29/18 @ 03:22 Daniel: I discussed the management with JADE Joshi and agree Assessment/Plan Assessment/Plan Hospital Course (Demo Recall) # sepsis, leukocytosis, SIRS, pulmonary, cardiac - recurrent leukocytosis due to recurrent UTI, improved - s/p septic shock due to pneumonia and C diff colitis - acute on chronic hypoxic respiratory failure, persistent - s/p reintubation 05/12/2018 - s/p re-do trach on 05/29/2018 - recurrent colonization of the anterior neck wound with ESBL+kleb, MRSA, GBS, corynebacteria on 05/06/2018, s/p meropenem - h/o pneumonia vs. colonization of the airway by pseudomonas and ESBL+klebsiella - h/o possible, recurrent HCAP due to pseudomonas and ESBL+klebsiella - h/o recurrent HCAP due to MRSA and Enterobacter (culture of tracheal aspirate on 07/16/2017 that was collected at [facility]) . Pt took vancomycin and ceftazidime - h/o decannulation prior to admission - h/o tracheostomy on 06/11/2017 - h/o SIRS from UGIB in 2018 - h/o thoracentesis on 07/18/2017, transudative (protein <2, LDH 279) - h/o bleeding from the trach site in 2018 - h/o septic shock due to pneumonia, ARDS, bacteremia, fungemia in 2018 - h/o ARDS in 2018 - h/o smoking - COPD - h/o ILD per medical record - h/o PAF, improved # GI - possible ileus or enterocolitis on CT abd/pel 06/15/2018 - C diff colitis, diagnosed on 05/11/2018. Pt's on pGT vancomycin induction followed by taper (05/11/2018-); Pt previously took IV metronidazole (05/11/2018- 05/29/2018; restart 05/30/2018-06/05/18) too - h/o intermittent diarrhea, Pt had multiple negative C. diff tests at [facility] at OSH in the past; none was positive until 05/11/2018 - dysphagia - h/o PEG placement 06/13/2018 - protein calorie malnutrition - h/o coffee ground emesis/UGIB on 12/23/2017 due to deep ulceration of distal esophagus and gastritis on EGD 12/26/2017. No e/o H. pylori - h/o possible appendicitis on CT on 11/22/2017, Pt took ertapenem (11/24/2017- 12/01/2017) - h/o extensive adhesions lower abdominal and pelvis between small bowel to each other and to colon and to abdominal wall, anterior pelvic wall chronic abscess secondary to probably an old perforated diverticulitis, torsion of small bowel around these dense adhesion causing multiple obstructive points - h/o laparoscopic exploration and extensive lysis of adhesions and drainage of anterior pelvic wall abscess 09/16/2017. Cultures were negative, no e/o malignancy. 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 S/p renally dosed amikacin for klebsiella in her urine culture (06/17-06/22/2018) - UTI due to pseudomonas and ESBL+klebsiella on 06/09/2018, Pt took one dose of fosfomycin on 06/10/2018 and cipro 06/12-06/15/2018 - anasarca - started on HD on 05/15/2018, via Juan in R groin - recurrent NATHAN on CKD - 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 Her strain of CRE was sensitive to colistin, Avycaz, and Vabomere but resistant to Zerbaxa (reported on 05/19/2018) - metabolic acidosis - adrenal insufficiency - h/o vaginal bleed in 2018 - h/o colonization of urinary tract by ESBL+klebsiella, VRE - h/o recurrent, symptomatic UTI due to carbapenem-resistant kleb (MDR strain) per urine culture 10/04/17, 10/09/17, 10/21/2017, P took colistin (10/09/2017- 10/15/2017), fosfomycin for carbapenemase-producing klebsiella and VRE on 10/25/2017 and 10/28/2017 - h/o funguria - h/o urinary retention # fungemia, bacteremia 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; Pt declined surgery for MVR per outside medical records; TTE 07/01/17 did not mention any thrombus; s/p voriconazole (05/25/2017-08/01/2017) - h/o bacteremia due to MSSA and proteus s/p ceftriaxone; repeat blood cultures were negative on 06/14/2017 # musculoskeletal and dermatological - L hand pain - dry skin - chronic wound of LLE - h/o infection of wound of LLE - h/o debridement of wound of LLE on 08/06/2017 - h/o recurrent herpes labialis, Pt took acyclovir, valacyclovir - h/o Osler's nodes (eschar) of R toes with erythematous skin; desquamation of the skin and open lacerations on R plantar foot. improved. Probable manifestation of endocarditis. Pt declined MRI on 08/06/2017 - h/o infection of R toes due to pseudomonas. coagulase negative Staph likely a colonizer - h/o intertrigo of the groin, resolved with nystatin powder - h/o scabies, locally crusted lesion over L scapula, s/p permethrin cream and pGT ivermectin on 08/11/2017, 08/12/2017, 08/19/2017. Repeat skin scraping on 08/21/2017 was negative for scabies # psych, neuro - decreased hearing b/l - s/p acute toxic metabolic encephalopathy - h/o critical illness polyneuropathy - anxiety/depression, bipolar d/o, seen by Psychiatry in the past - chronic pain syndrome - h/o medical non-compliance: she would refuse her medications, treatment and straight catheterization in 2018 # hematological, vascular - chronic anemia requiring blood transfusion intermittently - macrocytic anemia - aneurysmal dilatation of the distal aorta visualized on CT 06/15/2018 - PVD Recommendations: - Monitor closely off systemic antibiotics. S/p renally dosed amikacin for klebsiella in her urine culture (06/17-06/22/2018) - Continue pGT vancomycin taper: 06/22-06/28/2018: daily and 06/29-07/05/2018: q48hrs Management d/w patient, JAYANT Bender, and with Dr. Sanchez Consultation Date/Type/Reason Admit Date/Time May 06, 2018 at 17:38 Initial Consult Date 05/07/18 Type of Consult Infectious Disease Requesting Provider: ROLAND GIRON MD Date/Time of Note DATE: 06/28/18 TIME: 15:36 24 HR Interval Summary Free Text/Dictation Pt had one large episode of loose/pasty stool per d/w nursing. Recently medicated with Ativan. Pt states "stop" when I was examining her. Declined to answer questions. Exam/Review of Systems Exam Vitals Vital Signs Date Temp Pulse Resp B/P (MAP) Pulse Ox O2 O2 Flow FiO2 Time Delivery Rate 06/28/18 68 23 100 30 15:10 06/28/18 98.9 115/57 11:22 (76) 06/25/18 Mechanical 16:06 Ventilator Intake and Output 06/27/18 06/27/18 06/28/18 1515:00 23:00 07:00 IntakeIntake Total 110 ml 780 ml OutputOutput Total 800 ml BalanceBalance 110 ml -20 ml Exam Constitutional: well developed, non-verbal, frail, obese, (chronically debilitated) Psych: other (irritable when awakened) Head: normocephalic, atraumatic Eyes: nl conjunctiva, nl lids, nl sclera ENMT: nl external ears & nose, nl nasal mucosa & septum, other (unable to examine OP) Neck: other (+trach connected to ventilator support) Respiratory: diminished breath sounds Cardiovascular: regular rate and rhythm, nl pulses Gastrointestinal: soft, other (+GT; soft mushy stool noted, small amount ->RN notified) Genitourinary - Female: other (+Garza) Musculoskeletal: nl extremities to inspection; No swelling Extremities: normal pulses, edema, other (bilateral foot drop); No tenderness Neurological: other (sleeping but easily arousable) Skin: nl turgor, other (BLE SCDs in place; wounds - nurses notes and photos reviewed in chart) Results Result Diagram: 06/28/18 0627 06/28/18 0627 Results 24hrs Laboratory Tests Test 06/28/18 06:27 White Blood Count 7.7 # Red Blood Count 2.48 L Hemoglobin 8.3 L Hematocrit 26.6 L Mean Corpuscular Volume 107.3 H Mean Corpuscular Hemoglobin 33.5 H Mean Corpuscular Hemoglobin Concent 31.2 L Red Cell Distribution Width 23.2 H Platelet Count 302 Mean Platelet Volume 9.7 Immature Granulocytes % 0.400 Neutrophils % 73.4 Lymphocytes % 10.6 L Monocytes % 8.3 Eosinophils % 7.0 Basophils % 0.3 Nucleated Red Blood Cells % 0.0 Immature Granulocytes # 0.030 Neutrophils # 5.7 Lymphocytes # 0.8 Monocytes # 0.6 Eosinophils # 0.5 Basophils # 0.0 Nucleated Red Blood Cells # 0.0 Sodium Level 134 L Potassium Level 3.8 Chloride Level 106 Carbon Dioxide Level 19 L Anion Gap 9 Blood Urea Nitrogen 63 H Creatinine 1.54 H Est Glomerular Filtrat Rate mL/min Glucose Level 102 Calcium Level 9.4 Medications Medication Current Medications IV Flush (NS 10 ml) 10 ml PRN IV ; Start 05/06/18 at 20:30 Ascorbic Acid (Vitamin C) 500 mg DAILY GTB Last administered on 06/28/18at 09:01; Admin Dose 500 MG; Start 05/07/18 at 09:00 Albuterol/ Ipratropium (Duoneb) 3 ml Q2H RESP THERAPY PRN HHN SHORTNESS OF BREATH Last administered on 06/28/18 14:20; Admin Dose 3 ML; Start 05/06/18 at 23:30 Zinc Sulfate (Zinc Sulfate) 220 mg DAILY GTB Last administered on 06/28/18 09:01; Admin Dose 220 MG; Start 05/07/18 at 09:00 Ondansetron HCl (Zofran Tab) 4 mg Q6H PRN GTB NAUSEA AND/OR VOMITING Last administered on 05/31/18 16:47; Admin Dose 4 MG; Start 05/07/18 at 00:15 Multivitamins (Multivitamin) 30 ml DAILY GTB Last administered on 06/28/18 09:01; Admin Dose 30 ML; Start 05/07/18 at 09:00 Miscellaneous Information (Pending Santyl Order For Wound Care) This patient goldman... PRN PRN XX WOUND CARE; Start 05/09/18 at 17:00 Spironolactone (Aldactone) 50 mg DAILY GTB Last administered on 06/28/18 09:01; Admin Dose 50 MG; Start 05/21/18 at 09:00 Famotidine (Pepcid) 20 mg DAILY PEG Last administered on 06/28/18 09:01; Admin Dose 20 MG; Start 05/23/18 at 09:00 Morphine Sulfate (morphine) 6 mg Q4H PRN PEG SEVERE PAIN LEVEL 7-10 Last administered on 06/27/18 15:52; Admin Dose 6 MG; Start 05/22/18 at 17:00 Lorazepam (Ativan) 0.5 mg Q4H PRN IV ANXIETY Last administered on 06/28/18 13:51; Admin Dose 0.5 MG; Start 05/30/18 at 12:00 Acetaminophen (Tylenol Tab) 650 mg Q4H PRN PO MILD PAIN(1-3)OR ELEVATED TEMP Last administered on 06/10/18 21:44; Admin Dose 650 MG; Start 05/31/18 at 13:00 Metoclopramide HCl (Reglan) 5 mg Q6 IV Last administered on 06/28/18 12:29; Admin Dose 5 MG; Start 05/31/18 at 13:00 Collagenase (Santyl) 1 applic DAILY TOP Last administered on 06/26/18 09:11; Admin Dose 1 APPLIC; Start 06/01/18 at 09:00 Clonidine (Catapres) 0.1 mg Q6H PRN PO ELEVATED BLOOD PRESSURE Last administered on 06/17/18 05:59; Admin Dose 0.1 MG; Start 06/03/18 at 03:30 Bumetanide (Bumex) 1 mg BID DIURETICS GTB Last administered on 06/28/18 05:20; Admin Dose 1 MG; Start 06/11/18 at 18:00 Amiodarone HCl (Cordarone) 200 mg Q12 PO Last administered on 06/28/18 09:02; Admin Dose 200 MG; Start 06/12/18 at 21:00 Collagenase (Santyl) 1 applic PRN PRN TOP WHEN SOILED; Start 06/13/18 at 01:00 Nystatin (Nystatin Powder) 1 applic BID TOP Last administered on 06/28/18 09:02; Admin Dose 1 APPLIC; Start 06/13/18 at 14:00 Vancomycin HCl (Vancomycin Oral Syringe) 250 mg DAILY GTB Last administered on 06/28/18 09:01; Admin Dose 250 MG; Start 06/22/18 at 09:00; Stop 06/29/18 at 08:59 Vancomycin HCl (Vancomycin Oral Syringe) 250 mg Q48H GTB ; Start 06/29/18 at 14:00; Stop 07/06/18 at 13:59 Epoetin Zen-epbx (RETACRIT(esrd)) 20,000 unit Tu@1700 SC Last administered on 06/23/18 17:41; Admin Dose 20,000 UNIT; Start 06/16/18 at 18:30 Miscellaneous Information (*Order Clarification Bulletin) MEDICATION REQUIRES CLARIFICATION:PLE... Q8H XX Last administered on 06/22/18 23:27; Admin Dose 1 EA; Start 06/20/18 at 09:30 Amlodipine Besylate (Norvasc) 2.5 mg DAILY PO Last administered on 06/28/18 09:02; Admin Dose 2.5 MG; Start 06/25/18 at 09:00 Metoprolol Tartrate (Lopressor) 75 mg BID GTB Last administered on 06/28/18 09:01; Admin Dose 75 MG; Start 06/24/18 at 21:00 Miscellaneous Information 1 ea NOTE XX ; Start 06/26/18 at 08:00 Dicyclomine HCl (Bentyl) 20 mg Q8 PO Last administered on 06/28/18at 13:53; Admin Dose 20 MG; Start 06/27/18 at 22:00 Cholestyramine Resin (Questran Light) 4 gm 0600,1200,1800,2300 GTB Last administered on 06/28/18at 12:29; Admin Dose 4 GM; Start 06/27/18 at 18:00 LAURA JOSHI NP June 28, 2018 15:37
--- NOTE | 2018-06-28 16:11 | CONS ---
Consult Date/Type/Reason Admit Date/Time May 06, 2018 at 17:38 Initial Consult Date 05/10/18 Type of Consultation: Pulm/CCM Requesting Provider: ROLAND GIRON MD Date/Time of Note DATE: 06/28/18 TIME: 16:10 Subjective Stable on the vent. Objective Vitals Vital Signs Date Temp Pulse Resp B/P (MAP) Pulse Ox O2 O2 Flow FiO2 Time Delivery Rate 06/28/18 98.5 69 17 107/62 100 15:51 (77) 06/28/18 30 15:10 06/25/18 Mechanical 16:06 Ventilator Intake and Output 06/27/18 06/27/18 06/28/18 1515:00 23:00 07:00 IntakeIntake Total 110 ml 780 ml OutputOutput Total 800 ml BalanceBalance 110 ml -20 ml Exam HEENT: Neck supple; no JVD; no LAD: + trach CVS: Irreg irreg, S1 and S2 CHEST: Coarse BS B/L ABD: Soft, NT, + BS EXT: No c/c; + edema Results/Medications Result Diagram: 06/28/1862606/28/18626 Results 24 hrs Laboratory Tests Test 06/28/18 06:27 White Blood Count 7.7 # Red Blood Count 2.48 L Hemoglobin 8.3 L Hematocrit 26.6 L Mean Corpuscular Volume 107.3 H Mean Corpuscular Hemoglobin 33.5 H Mean Corpuscular Hemoglobin Concent 31.2 L Red Cell Distribution Width 23.2 H Platelet Count 302 Mean Platelet Volume 9.7 Immature Granulocytes % 0.400 Neutrophils % 73.4 Lymphocytes % 10.6 L Monocytes % 8.3 Eosinophils % 7.0 Basophils % 0.3 Nucleated Red Blood Cells % 0.0 Immature Granulocytes # 0.030 Neutrophils # 5.7 Lymphocytes # 0.8 Monocytes # 0.6 Eosinophils # 0.5 Basophils # 0.0 Nucleated Red Blood Cells # 0.0 Sodium Level 134 L Potassium Level 3.8 Chloride Level 106 Carbon Dioxide Level 19 L Anion Gap 9 Blood Urea Nitrogen 63 H Creatinine 1.54 H Est Glomerular Filtrat Rate mL/min Glucose Level 102 Calcium Level 9.4 Home Meds Reported Medications Zinc Sulfate* (Zinc Sulfate*) 220 Mg Tablet, 220 MG GTB DAILY, TAB START DATE 05/04/18, END DATE 06/03/18 05/06/18 Diclofenac Sodium* (Voltaren* Gel) 1% -100 Gm Gel, 2 GM TOP TID, #1 TUB 05/06/18 Ascorbic Acid (Vitamin C) 500 Mg Tab, 500 MG GTB DAILY, TAB 05/06/18 Quetiapine Fumarate* (Seroquel*) 100 Mg Tablet, 600 MG GTB HS, #30 TAB 05/06/18 Protein Supplement (Promod) 946 Ml Liquid, 30 ML GTB BID 05/06/18 Epoetin Zen (Procrit) 20,000 Unit/1 Ml Vial, 61894 UNIT IJ Q TUE for FOR ANEMIA OF CKD, VIAL HOLD IFHGB IS EQUAL OR GREATER THAN 11 05/06/18 Ondansetron Hcl* (Ondansetron Hcl* Liq) 4 Mg/5 Ml Solution, 4 MG GTB Q6H PRN for NAUSEA AND/OR VOMITING, ML 05/06/18 Multivitamin with Minerals (Multivitamins with Minerals) 1 Each Tablet, 1 EACH GTB QAM, TAB 05/06/18 Metoprolol Tartrate* (Lopressor*) 25 Mg Tab, 25 MG GTB BID, #60 TAB HOLD FOR SBP<110 OR HR<60 05/06/18 Lorazepam* (Ativan* Intensol) 2 Mg/Ml Soln, 0.5 MG IV* Q6H PRN for ANXIETY, #1 BOTTLE START DATE 04/02/18, END DATE 06/01/18 05/06/18 Lidocaine (Lidocaine) 1 Each Adh..patch, 1 EACH TP Q12H 5% 05/06/18 Ipratropium-Albuterol (Ipratropium-Albuterol) 0.5-3 Mg/3 Ml Ampul.neb, 3 ML INHALATION Q6 PRN for BRONCHOSPASM, #30 VIAL 05/06/18 Ipratropium-Albuterol (Ipratropium-Albuterol) 0.5-3 Mg/3 Ml Ampul.neb, 3 ML INHALATION Q2H PRN for BRONCHOSPASM, #30 VIAL 05/06/18 Famotidine* (Famotidine*) 20 Mg Tablet, 20 MG GTB BID, #60 TAB 05/06/18 Valproic Acid* (Depakene*) 250 Mg/5 Ml Udc Syrup, 100 MG GTB QHS, ML 05/06/18 Clonidine Hcl* (Clonidine Hcl*) 0.1 Mg Tab, 0.1 MG GTB Q6 PRN for NEEDED, TAB FOR SBP>160 OR DBP>90 05/06/18 Aspirin* (Aspirin* Chew) 81 Mg Tab.chew, 81 MG GTB DAILY, TAB.CHEW 05/06/18 Medications Current Medications IV Flush (NS 10 ml) 10 ml PRN IV ; Start 05/06/18 at 20:30 Ascorbic Acid (Vitamin C) 500 mg DAILY GTB Last administered on 06/28/18 09:01; Admin Dose 500 MG; Start 05/07/18 at 09:00 Albuterol/ Ipratropium (Duoneb) 3 ml Q2H RESP THERAPY PRN HHN SHORTNESS OF BREATH Last administered on 06/28/18 14:20; Admin Dose 3 ML; Start 05/06/18 at 23:30 Zinc Sulfate (Zinc Sulfate) 220 mg DAILY GTB Last administered on 06/28/18 09:01; Admin Dose 220 MG; Start 05/07/18 at 09:00 Ondansetron HCl (Zofran Tab) 4 mg Q6H PRN GTB NAUSEA AND/OR VOMITING Last administered on 05/31/18 16:47; Admin Dose 4 MG; Start 05/07/18 at 00:15 Multivitamins (Multivitamin) 30 ml DAILY GTB Last administered on 06/28/18 09:01; Admin Dose 30 ML; Start 05/07/18 at 09:00 Miscellaneous Information (Pending [facility] Order For Wound Care) This patient goldman... PRN PRN XX WOUND CARE; Start 05/09/18 at 17:00 Spironolactone (Aldactone) 50 mg DAILY GTB Last administered on 06/28/18 09:01; Admin Dose 50 MG; Start 05/21/18 at 09:00 Famotidine (Pepcid) 20 mg DAILY PEG Last administered on 06/28/18 09:01; Admin Dose 20 MG; Start 05/23/18 at 09:00 Morphine Sulfate (morphine) 6 mg Q4H PRN PEG SEVERE PAIN LEVEL 7-10 Last administered on 06/27/18 15:52; Admin Dose 6 MG; Start 05/22/18 at 17:00 Lorazepam (Ativan) 0.5 mg Q4H PRN IV ANXIETY Last administered on 06/28/18 13:51; Admin Dose 0.5 MG; Start 05/30/18 at 12:00 Acetaminophen (Tylenol Tab) 650 mg Q4H PRN PO MILD PAIN(1-3)OR ELEVATED TEMP L ast administered on 06/10/18 21:44; Admin Dose 650 MG; Start 05/31/18 at 13:00 Metoclopramide HCl (Reglan) 5 mg Q6 IV Last administered on 06/28/18 12:29; Admin Dose 5 MG; Start 05/31/18 at 13:00 Collagenase (Santyl) 1 applic DAILY TOP Last administered on 06/26/18 09:11; Admin Dose 1 APPLIC; Start 06/01/18 at 09:00 Clonidine (Catapres) 0.1 mg Q6H PRN PO ELEVATED BLOOD PRESSURE Last administ ered on 06/17/18 05:59; Admin Dose 0.1 MG; Start 06/03/18 at 03:30 Bumetanide (Bumex) 1 mg BID DIURETICS GTB Last administered on 06/28/18 05:20; Admin Dose 1 MG; Start 06/11/18 at 18:00 Amiodarone HCl (Cordarone) 200 mg Q12 PO Last administered on 06/28/18 09:02; Admin Dose 200 MG; Start 06/12/18 at 21:00 Collagenase (Santyl) 1 applic PRN PRN TOP WHEN SOILED; Start 06/13/18 at 01:00 Nystatin (Nystatin Powder) 1 applic BID TOP Last administered on 06/28/18 09:02; Admin Dose 1 APPLIC; Start 06/13/18 at 14:00 Vancomycin HCl (Vancomycin Oral Syringe) 250 mg DAILY GTB Last administered on 06/28/18 09:01; Admin Dose 250 MG; Start 06/22/18 at 09:00; Stop 06/29/18 at 08:59 Vancomycin HCl (Vancomycin Oral Syringe) 250 mg Q48H GTB ; Start 06/29/18 at 14:00; Stop 07/06/18 at 13:59 Epoetin Zen-epbx (RETACRIT(esrd)) 20,000 unit Tu@1700 SC Last administered on 06/23/18 17:41; Admin Dose 20,000 UNIT; Start 06/16/18 at 18:30 Miscellaneous Information (*Order Clarification Bulletin) MEDICATION REQUIRES CLARIFICATION:PLE... Q8H XX Last administered on 06/22/18at 23:27; Admin Dose 1 EA; Start 06/20/18 at 09:30 Amlodipine Besylate (Norvasc) 2.5 mg DAILY PO Last administered on 06/28/18 09:02; Admin Dose 2.5 MG; Start 06/25/18 at 09:00 Metoprolol Tartrate (Lopressor) 75 mg BID GTB Last administered on 06/28/18 09:01; Admin Dose 75 MG; Start 06/24/18 at 21:00 Miscellaneous Information 1 ea NOTE XX ; Start 06/26/18 at 08:00 Dicyclomine HCl (Bentyl) 20 mg Q8 PO Last administered on 06/28/18 13:53; Admin Dose 20 MG; Start 06/27/18 at 22:00 Cholestyramine Resin (Questran Light) 4 gm 0600,1200,1800,2300 GTB Last administered on 06/28/18 12:29; Admin Dose 4 GM; Start 06/27/18 at 18:00 Assessment/Plan Assessment/Plan (Daily) IMP: 1. Sepsis 2. Acute Renal Failure 3. VDRF 4. Encephalopathy 5. Anemia 6. H/O abdominal abscess 7. Atrial fibrillation with RVR RECS: 1. Vent support; BDs/CPT as needed 2. Follow H/H; am labs 3. TF/Free H20 4. Rate control as per CV SALENA IRAHETA MD June 28, 2018 16:11
[2018-06-28] MEDS: morphine LIQ (10 MG/5 ML) CUP PEG PRN (18:16)
--- NOTE | 2018-06-28 21:13 | CONS ---
Assessment/Plan Assessment/Plan Assessment/Plan (Daily) Interval hx: Diarrhea has stopped, formed brown per RN. No signs of GI bleeding 1. ABD pain -CT of abd 2. Renal failure.- on HD 3. Vent dependent resp failure 4. Chronic obstructive pulmonary disease. 5. Bipolar. 6. Paroxysmal atrial fibrillation. 7. Anemia of chronic disease. 8. CHF 9. Diarrhea 11. Diarrhea -s/p c diff colitis -taper off of vanco 12. H/O deep esophageal ulcer 13. Dysphagia with g tube 14. Anemia of chronic disease 15. UTI with positive cx CT of abd/pelvis 06/16 1. Nonspecific bibasilar ground-glass densities and the airspace disease, suggesting bilateral pneumonia versus pulmonary edema. 2. Atrophy of the left kidney. 2.3 cm left renal cyst. The right kidney demonstrates compensatory hypertrophy. No calculus or hydronephrosis in either kidney. 3. Atherosclerosis of the aorta. 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 No leak or rupture. 4. Mild nonspecific ascites in the pelvis. 5. Air-fluid levels are seen throughout the small bowel and colon. Consider mild ileus versus enterocolitis. PLAN: Continue with reglan and pepcid Monitor tube feeds residuals q 6 carlos We will start her on Bentyl 20 mg 3 times daily Suggested EGD but patient declined it Consultation Date/Type/Reason Admit Date/Time May 06, 2018 at 17:38 Initial Consult Date 05/10/18 Requesting Provider: ROLAND GIRON MD Date/Time of Note DATE: 06/28/18 TIME: 21:12 24 HR Interval Summary Constitutional: no complaints Exam/Review of Systems Exam Vitals Vital Signs Date Temp Pulse Resp B/P (MAP) Pulse Ox O2 O2 Flow FiO2 Time Delivery Rate 06/28/18 98.0 63 20 128/69 96 20:30 (88) 06/28/18 30 17:30 06/25/18 Mechanical 16:06 Ventilator Intake and Output 06/27/18 06/27/18 06/28/18 1515:00 23:00 07:00 IntakeIntake Total 110 ml 780 ml OutputOutput Total 800 ml BalanceBalance 110 ml -20 ml Psych: depression Respiratory: diminished breath sounds Cardiovascular: nl pulses Musculoskeletal: nl extremities to inspection, nl gait and stance Extremities: normal pulses Results Result Diagram: 06/28/1862606/28/18626 Results 24hrs Laboratory Tests Test 06/28/18 06:27 White Blood Count 7.7 # Red Blood Count 2.48 L Hemoglobin 8.3 L Hematocrit 26.6 L Mean Corpuscular Volume 107.3 H Mean Corpuscular Hemoglobin 33.5 H Mean Corpuscular Hemoglobin Concent 31.2 L Red Cell Distribution Width 23.2 H Platelet Count 302 Mean Platelet Volume 9.7 Immature Granulocytes % 0.400 Neutrophils % 73.4 Lymphocytes % 10.6 L Monocytes % 8.3 Eosinophils % 7.0 Basophils % 0.3 Nucleated Red Blood Cells % 0.0 Immature Granulocytes # 0.030 Neutrophils # 5.7 Lymphocytes # 0.8 Monocytes # 0.6 Eosinophils # 0.5 Basophils # 0.0 Nucleated Red Blood Cells # 0.0 Sodium Level 134 L Potassium Level 3.8 Chloride Level 106 Carbon Dioxide Level 19 L Anion Gap 9 Blood Urea Nitrogen 63 H Creatinine 1.54 H Est Glomerular Filtrat Rate mL/min Glucose Level 102 Calcium Level 9.4 Medications Medication Current Medications IV Flush (NS 10 ml) 10 ml PRN IV ; Start 05/06/18 at 20:30 Ascorbic Acid (Vitamin C) 500 mg DAILY GTB Last administered on 06/28/18 09:01; Admin Dose 500 MG; Start 05/07/18 at 09:00 Albuterol/ Ipratropium (Duoneb) 3 ml Q2H RESP THERAPY PRN HHN SHORTNESS OF BREATH Last administered on 06/28/18 14:20; Admin Dose 3 ML; Start 05/06/18 at 23:30 Zinc Sulfate (Zinc Sulfate) 220 mg DAILY GTB Last administered on 06/28/18 09:01; Admin Dose 220 MG; Start 05/07/18 at 09:00 Ondansetron HCl (Zofran Tab) 4 mg Q6H PRN GTB NAUSEA AND/OR VOMITING Last admin istered on 05/31/18 16:47; Admin Dose 4 MG; Start 05/07/18 at 00:15 Multivitamins (Multivitamin) 30 ml DAILY GTB Last administered on 06/28/18 09:01; Admin Dose 30 ML; Start 05/07/18 at 09:00 Miscellaneous Information (Pending Santyl Order For Wound Care) This patient goldman... PRN PRN XX WOUND CARE; Start 05/09/18 at 17:00 Spironolactone (Aldactone) 50 mg DAILY GTB Last administered on 06/28/18 09:01; Admin Dose 50 MG; Start 05/21/18 at 09:00 Famotidine (Pepcid) 20 mg DAILY PEG Last administered on 06/28/18 09:01; Admin Dose 20 MG; Start 05/23/18 at 09:00 Morphine Sulfate (morphine) 6 mg Q4H PRN PEG SEVERE PAIN LEVEL 7-10 Last administered on 06/28/18 18:16; Admin Dose 6 MG; Start 05/22/18 at 17:00 Lorazepam (Ativan) 0.5 mg Q4H PRN IV ANXIETY Last administered on 06/28/18 19:55; Admin Dose 0.5 MG; Start 05/30/18 at 12:00 Acetaminophen (Tylenol Tab) 650 mg Q4H PRN PO MILD PAIN(1-3)OR ELEVATED TEMP Last administered on 06/10/18 21:44; Admin Dose 650 MG; Start 05/31/18 at 13:00 Metoclopramide HCl (Reglan) 5 mg Q6 IV Last administered on 06/28/18 17:58; Admin Dose 5 MG; Start 05/31/18 at 13:00 Collagenase (Santyl) 1 applic DAILY TOP Last administered on 06/26/18 09:11; Admin Dose 1 APPLIC; Start 06/01/18 at 09:00 Clonidine (Catapres) 0.1 mg Q6H PRN PO ELEVATED BLOOD PRESSURE Last administered on 06/17/18 05:59; Admin Dose 0.1 MG; Start 06/03/18 at 03:30 Bumetanide (Bumex) 1 mg BID DIURETICS GTB Last administered on 06/28/18 17:58; Admin Dose 1 MG; Start 06/11/18 at 18:00 Amiodarone HCl (Cordarone) 200 mg Q12 PO Last administered on 06/28/18 19:54; Admin Dose 200 MG; Start 06/12/18 at 21:00 Collagenase (Santyl) 1 applic PRN PRN TOP WHEN SOILED; Start 06/13/18 at 01:00 Nystatin (Nystatin Powder) 1 applic BID TOP Last administered on 06/28/18 19:55; Admin Dose 1 APPLIC; Start 06/13/18 at 14:00 Vancomycin HCl (Vancomycin Oral Syringe) 250 mg DAILY GTB Last administered on 06/28/18 09:01; Admin Dose 250 MG; Start 06/22/18 at 09:00; Stop 06/29/18 at 08:59 Vancomycin HCl (Vancomycin Oral Syringe) 250 mg Q48H GTB ; Start 06/29/18 at 14:00; Stop 07/06/18 at 13:59 Epoetin Zen-epbx (RETACRIT(esrd)) 20,000 unit Tu@1700 SC Last administered on 06/23/18 17:41; Admin Dose 20,000 UNIT; Start 06/16/18 at 18:30 Miscellaneous Information (*Order Clarification Bulletin) MEDICATION REQUIRES CLARIFICATION:PLE... Q8H XX Last administered on 06/22/18 23:27; Admin Dose 1 EA; Start 06/20/18 at 09:30 Amlodipine Besylate (Norvasc) 2.5 mg DAILY PO Last administered on 06/28/18 09:02; Admin Dose 2.5 MG; Start 06/25/18 at 09:00 Metoprolol Tartrate (Lopressor) 75 mg BID GTB Last administered on 06/28/18 19:54; Admin Dose 75 MG; Start 06/24/18 at 21:00 Miscellaneous Information 1 ea NOTE XX ; Start 06/26/18 at 08:00 Dicyclomine HCl (Bentyl) 20 mg Q8 PO Last administered on 06/28/18 13:53; Admin Dose 20 MG; Start 06/27/18 at 22:00 Cholestyramine Resin (Questran Light) 4 gm 0600,1200,1800,2300 GTB Last administered on 06/28/18 17:58; Admin Dose 4 GM; Start 06/27/18 at 18:00 QUINTEN UMAÑA MD June 28, 2018 21:13
[2018-06-29] VITALS (23 sets, daily range): BP systolic 101–144; BP diastolic 56–71; PULSE 64–77; RESP 17–23
[2018-06-29] MEDS: BUMETANIDE 1 MG TAB GTB SCH ×2 (05:16→17:22)
[2018-06-29] MEDS: CHOLESTYRAMINE (LIGHT) 4 GM PACKET GTB SCH ×4 (05:16→23:37)
[2018-06-29] MEDS: METOCLOPRAMIDE 10 MG INJ IV SCH ×4 (05:16→23:38)
[2018-06-29] MEDS: DICYCLOMINE 10 MG CAP PO SCH ×3 (05:16→21:31)
--- NOTE | 2018-06-29 08:11 | PN ---
DATE: 06/29/2018 SUBJECTIVE: The patient is stable, no events overnight. OBJECTIVE: VITAL SIGNS: Blood pressure is 116/64, pulse 66, respirations 17, temperature 99.1. HEENT: Head is normocephalic. NECK: Supple. HEART: Regular rate. LUNGS: Show diminished breath sounds at the base. ABDOMEN: Soft, nontender to palpation. No rebound or guarding. EXTREMITIES: Negative for clubbing, cyanosis. Trace edema. DERMATOLOGIC: No rashes. MUSCULOSKELETAL: No joint effusion. NEUROLOGIC: No change in exam. MEDICATIONS: Reviewed. LABORATORY DATA: Reviewed. ASSESSMENT AND PLAN: 1. Nonoliguric acute kidney injury on top of chronic kidney disease stage IIIB/IV with previous base line creatinine of 2.0 mg/dL. Etiology of acute kidney injury is secondary to acute tubular necrosis . The patient is status post hemodialysis. Renal function stabilized. Continue current treatment p lans, supportive care and renally dose all medications. 2. Volume overload, improving. Continue Bumex. Continue intermittent metolazone as needed. 3. Hypernatremia. The patient's free water flushes have been adjusted. Continue to monitor. 4. Anemia. The patient is completing course of IV Ferrlecit. We will give intermittent Epogen as n eeded. 5. Mineral bone disorder, monitor calcium and phosphorus levels. 6. Ventilator-dependent respiratory failure. Vent settings and ABG was reviewed. Continue to monit or. 7. Sepsis, status post shock. The patient is completing antibiotic course. 8. Clostridium difficile. Continue oral vancomycin. 9. Lower extremity wounds. Continue wound care. 10. Dysphagia. Continue tube feeding. 11. Encephalopathy. Continue to monitor. Dictated By: JEANA BANSAL DO NR/NTS Conf#: [id number] DID#: [id number] CC: QUINTEN UMAÑA MD; ROLAND GIRON MD;*EndCC*
--- NOTE | 2018-06-29 08:36 | CONS ---
Assessment/Plan Assessment/Plan Hospital Course (Demo Recall) 73 yo female Interval hx: No diarrhea. 2 bm overnight. No signs GI bleeding. RN says pt do es not c/o abd pain. 1. ABD pain -CT of abd 2. Renal failure.- on HD 3. Vent dependent resp failure 4. Chronic obstructive pulmonary disease. 5. Bipolar. 6. Paroxysmal atrial fibrillation. 7. Anemia of chronic disease. 8. CHF 9. Diarrhea 11. Diarrhea -s/p c diff colitis -taper off of vanco -resolved 12. H/O deep esophageal ulcer 13. Dysphagia with g tube 14. Anemia of chronic disease 15. UTI with positive cx CT of abd/pelvis 06/16 1. Nonspecific bibasilar ground-glass densities and the airspace disease, suggesting bilateral pneumonia versus pulmonary edema. 2. Atrophy of the left kidney. 2.3 cm left renal cyst. The right kidney demonstrates compensatory hypertrophy. No calculus or hydronephrosis in either kidney. 3. Atherosclerosis of the aorta. 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 No leak or rupture. 4. Mild nonspecific ascites in the pelvis. 5. Air-fluid levels are seen throughout the small bowel and colon. Consider mild ileus versus enterocolitis. PLAN: Continue with reglan and pepcid and bentyl Monitor tube feeds residuals q 6 hour Pt examined and plan of care discussed with Dr Carolina Consultation Date/Type/Reason Admit Date/Time May 06, 2018 at 17:38 Initial Consult Date 05/10/18 Requesting Provider: ROLAND GIRON MD Date/Time of Note DATE: 06/29/18 TIME: 08:35 Exam/Review of Systems Exam Vitals Vital Signs Date Temp Pulse Resp B/P (MAP) Pulse Ox O2 O2 Flow FiO2 Time Delivery Rate 06/29/18 99.1 66 17 116/64 100 07:32 (81) 06/29/18 30 07:20 06/25/18 Mechanical 16:06 Ventilator Intake and Output 06/28/18 06/28/18 06/29/18 1515:00 23:00 07:00 IntakeIntake Total 780 ml 780 ml OutputOutput Total 1600 ml 1050 ml BalanceBalance -820 ml -270 ml Constitutional: alert, oriented Head: normocephalic Eyes: PERRL Respiratory: clear to auscultation Cardiovascular: regular rate and rhythm Gastrointestinal: soft, tender Neurological: nl mental status Results Result Diagram: 06/28/1862606/28/18626 Medications Medication Current Medications IV Flush (NS 10 ml) 10 ml PRN IV ; Start 05/06/18 at 20:30 Ascorbic Acid (Vitamin C) 500 mg DAILY GTB Last administered on 06/28/18 09:01; Admin Dose 500 MG; Start 05/07/18 at 09:00 Albuterol/ Ipratropium (Duoneb) 3 ml Q2H RESP THERAPY PRN HHN SHORTNESS OF BREATH Last administered on 06/28/18 14:20; Admin Dose 3 ML; Start 05/06/18 at 23:30 Zinc Sulfate (Zinc Sulfate) 220 mg DAILY GTB Last administered on 06/28/18 09:01; Admin Dose 220 MG; Start 05/07/18 at 09:00 Ondansetron HCl (Zofran Tab) 4 mg Q6H PRN GTB NAUSEA AND/OR VOMITING Last administered on 05/31/18 16:47; Admin Dose 4 MG; Start 05/07/18 at 00:15 Multivitamins (Multivitamin) 30 ml DAILY GTB Last administered on 06/28/18 09:01; Admin Dose 30 ML; Start 05/07/18 at 09:00 Miscellaneous Information ([facility] This patient goldman... PRN PRN XX WOUND CARE; Start 05/09/18 at 17:00 Spironolactone (Aldactone) 50 mg DAILY GTB Last administered on 06/28/18 09:01; Admin Dose 50 MG; Start 05/21/18 at 09:00 Famotidine (Pepcid) 20 mg DAILY PEG Last administered on 06/28/18 09:01; Admin Dose 20 MG; Start 05/23/18 at 09:00 Morphine Sulfate (morphine) 6 mg Q4H PRN PEG SEVERE PAIN LEVEL 7-10 Last administered on 06/28/18 18:16; Admin Dose 6 MG; Start 05/22/18 at 17:00 Lorazepam (Ativan) 0.5 mg Q4H PRN IV ANXIETY Last administered on 06/28/18 19:55; Admin Dose 0.5 MG; Start 05/30/18 at 12:00 Acetaminophen (Tylenol Tab) 650 mg Q4H PRN PO MILD PAIN(1-3)OR ELEVATED TEMP Last administered on 06/10/18 21:44; Admin Dose 650 MG; Start 05/31/18 at 13:00 Metoclopramide HCl (Reglan) 5 mg Q6 IV Last administered on 06/29/18 05:16; Admin Dose 5 MG; Start 05/31/18 at 13:00 Collagenase (Santyl) 1 applic DAILY TOP Last administered on 06/26/18 09:11; Admin Dose 1 APPLIC; Start 06/01/18 at 09:00 Clonidine (Catapres) 0.1 mg Q6H PRN PO ELEVATED BLOOD PRESSURE Last administered on 06/17/18 05:59; Admin Dose 0.1 MG; Start 06/03/18 at 03:30 Bumetanide (Bumex) 1 mg BID DIURETICS GTB Last administered on 06/29/18 05:16; Admin Dose 1 MG; Start 06/11/18 at 18:00 Amiodarone HCl (Cordarone) 200 mg Q12 PO Last administered on 06/28/18 19:54; Admin Dose 200 MG; Start 06/12/18 at 21:00 Collagenase (Santyl) 1 applic PRN PRN TOP WHEN SOILED; Start 06/13/18 at 01:00 Nystatin (Nystatin Powder) 1 applic BID TOP Last administered on 06/28/18 19:55; Admin Dose 1 APPLIC; Start 06/13/18 at 14:00 Vancomycin HCl (Vancomycin Oral Syringe) 250 mg DAILY GTB Last administered on 06/28/18 09:01; Admin Dose 250 MG; Start 06/22/18 at 09:00; Stop 06/29/18 at 08:59 Vancomycin HCl (Vancomycin Oral Syringe) 250 mg Q48H GTB ; Start 06/29/18 at 14 :00; Stop 07/06/18 at 13:59 Epoetin Zen-epbx (RETACRIT(esrd)) 20,000 unit Tu@1700 SC Last administered on 06/23/18 17:41; Admin Dose 20,000 UNIT; Start 06/16/18 at 18:30 Miscellaneous Information (*Order Clarification Bulletin) MEDICATION REQUIRES CLARIFICATION:PLE... Q8H XX Last administered on 06/22/18at 23:27; Admin Dose 1 EA; Start 06/20/18 at 09:30 Amlodipine Besylate (Norvasc) 2.5 mg DAILY PO Last administered on 06/28/18at 09:02; Admin Dose 2.5 MG; Start 06/25/18 at 09:00 Metoprolol Tartrate (Lopressor) 75 mg BID GTB Last administered on 06/28/18at 19:54; Admin Dose 75 MG; Start 06/24/18 at 21:00 Miscellaneous Information 1 ea NOTE XX ; Start 06/26/18 at 08:00 Dicyclomine HCl (Bentyl) 20 mg Q8 PO Last administered on 06/29/18at 05:16; Admin Dose 20 MG; Start 06/27/18 at 22:00 Cholestyramine Resin (Questran Light) 4 gm 0600,1200,1800,2300 GTB Last administered on 06/29/18at 05:16; Admin Dose 4 GM; Start 06/27/18 at 18:00 SHAHEEN GAMBOA June 29, 2018 08:36
[2018-06-29] MEDS: METOPROLOL 25 MG TAB GTB SCH (09:00)
[2018-06-29] MEDS: AMLODIPINE 2.5 MG TAB PO SCH (09:00)
[2018-06-29] MEDS: SPIRONOLACTONE 25 MG TAB GTB SCH (09:38)
[2018-06-29] MEDS: NYSTATIN 30 GM POWDER BTL TOP SCH ×2 (09:38→21:32)
[2018-06-29] MEDS: AMIODARONE 200 MG TAB PO SCH ×2 (09:38→21:31)
[2018-06-29] MEDS: MULTIVITAMINS 30 ML CUP GTB SCH (09:38)
[2018-06-29] MEDS: ZINC SULFATE 220 MG CAP GTB SCH (09:39)
[2018-06-29] MEDS: FAMOTIDINE 20 MG TAB PEG SCH (09:39)
[2018-06-29] MEDS: ASCORBIC ACID 500 MG TAB GTB SCH (09:39)
[2018-06-29] MEDS: BALSAM PERU/CASTOR OIL 60 GM TUBE TOP SCH ×2 (09:40→21:32)
[2018-06-29] MEDS: COLLAGENASE 5 GM (UD JAR) TOP SCH (09:41)
[2018-06-29] MEDS: LORAZEPAM 2 MG INJ IV PRN ×3 (11:00→20:04)
[2018-06-29] MEDS: morphine LIQ (10 MG/5 ML) CUP PEG PRN ×3 (12:21→21:33)
--- NOTE | 2018-06-29 13:00 | CONS ---
Assessment/Plan Assessment/Plan Hospital Course (Demo Recall) # sepsis, leukocytosis, SIRS, pulmonary, cardiac - recurrent leukocytosis due to recurrent UTI, improved - s/p septic shock due to pneumonia and C diff colitis - acute on chronic hypoxic respiratory failure, persistent - s/p reintubation 05/12/2018 - s/p re-do trach on 05/29/2018 - recurrent colonization of the anterior neck wound with ESBL+kleb, MRSA, GBS, corynebacteria on 05/06/2018, s/p meropenem - h/o pneumonia vs. colonization of the airway by pseudomonas and ESBL+klebsiella - h/o possible, recurrent HCAP due to pseudomonas and ESBL+klebsiella - h/o recurrent HCAP due to MRSA and Enterobacter (culture of tracheal aspirate on 07/16/2017 that was collected at [facility]) . Pt took vancomycin and ceftazidime - h/o decannulation prior to admission - h/o tracheostomy on 06/11/2017 - h/o SIRS from UGIB in 2018 - h/o thoracentesis on 07/18/2017, transudative (protein <2, LDH 279) - h/o bleeding from the trach site in 2018 - h/o septic shock due to pneumonia, ARDS, bacteremia, fungemia in 2018 - h/o ARDS in 2018 - h/o smoking - COPD - h/o ILD per medical record - h/o PAF, improved # GI - possible ileus or enterocolitis on CT abd/pel 06/15/2018 - C diff colitis, diagnosed on 05/11/2018. Pt's on pGT vancomycin induction followed by taper (05/11/2018-); Pt previously took IV metronidazole (05/11/2018- 05/29/2018; restart 05/30/2018-06/05/18) too - h/o intermittent diarrhea, Pt had multiple negative C. diff tests at [facility] at OSH in the past; none was positive until 05/11/2018 - dysphagia - h/o PEG placement 06/13/2018 - protein calorie malnutrition - h/o coffee ground emesis/UGIB on 12/23/2017 due to deep ulceration of distal esophagus and gastritis on EGD 12/26/2017. No e/o H. pylori - h/o possible appendicitis on CT on 11/22/2017, Pt took ertapenem (11/24/2017-12/01/2017) - h/o extensive adhesions lower abdominal and pelvis between small bowel to each other and to colon and to abdominal wall, anterior pelvic wall chronic abscess secondary to probably an old perforated diverticulitis, torsion of small bowel around these dense adhesion causing multiple obstructive points - h/o laparoscopic exploration and extensive lysis of adhesions and drainage of anterior pelvic wall abscess 09/16/2017. Cultures were negative, no e/o malignancy. 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 S/p renally dosed amikacin for klebsiella in her urine culture (06/17-06/22/2018) - UTI due to pseudomonas and ESBL+klebsiella on 06/09/2018, Pt took one dose of fosfomycin on 06/10/2018 and cipro 06/12-06/15/2018 - anasarca - started on HD on 05/15/2018, via Juan in R groin - recurrent NATHAN on CKD - 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 Her strain of CRE was sensitive to colistin, Avycaz, and Vabomere but resistant to Zerbaxa (reported on 05/19/2018) - metabolic acidosis - adrenal insufficiency - h/o vaginal bleed in 2018 - h/o colonization of urinary tract by ESBL+klebsiella, VRE - h/o recurrent, symptomatic UTI due to carbapenem-resistant kleb (MDR strain) per urine culture 10/04/17, 10/09/17, 10/21/2017, P took colistin (10/09/2017- 10/15/2017), fosfomycin for carbapenemase-producing klebsiella and VRE on 10/25/2017 and 10/28/2017 - h/o funguria - h/o urinary retention # fungemia, bacteremia 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; Pt declined surgery for MVR per outside medical records; TTE 07/01/17 did not mention any thrombus; s/p voriconazole (05/25/2017-08/01/2017) - h/o bacteremia due to MSSA and proteus s/p ceftriaxone; repeat blood cultures were negative on 06/14/2017 # musculoskeletal and dermatological - L hand pain - dry skin - chronic wound of LLE - h/o infection of wound of LLE - h/o debridement of wound of LLE on 08/06/2017 - h/o recurrent herpes labialis, Pt took acyclovir, valacyclovir - h/o Osler's nodes (eschar) of R toes with erythematous skin; desquamation of the skin and open lacerations on R plantar foot. improved. Probable manifestation of endocarditis. Pt declined MRI on 08/06/2017 - h/o infection of R toes due to pseudomonas. coagulase negative Staph likely a colonizer - h/o intertrigo of the groin, resolved with nystatin powder - h/o scabies, locally crusted lesion over L scapula, s/p permethrin cream and pGT ivermectin on 08/11/2017, 08/12/2017, 08/19/2017. Repeat skin scraping on 08/21/2017 was negative for scabies # psych, neuro - decreased hearing b/l - s/p acute toxic metabolic encephalopathy - h/o critical illness polyneuropathy - anxiety/depression, bipolar d/o, seen by Psychiatry in the past - chronic pain syndrome - h/o medical non-compliance: she would refuse her medications, treatment and straight catheterization in 2018 # hematological, vascular - chronic anemia requiring blood transfusion intermittently - macrocytic anemia - aneurysmal dilatation of the distal aorta visualized on CT 06/15/2018 - PVD Recommendations: - Monitor closely off systemic antibiotics. S/p renally dosed amikacin for klebsiella in her urine culture (06/17-06/22/2018) - Continue pGT vancomycin taper: 06/22-06/28/2018: daily and 06/29-07/05/2018: q48hrs Consultation Date/Type/Reason Admit Date/Time May 06, 2018 at 17:38 Initial Consult Date 05/10/18 Type of Consult ID Requesting Provider: ROLAND GIRON MD Date/Time of Note DATE: 06/29/18 TIME: 12:59 24 HR Interval Summary Free Text/Dictation d/w nursing. no further diarrhea. Exam/Review of Systems Exam Vitals Vital Signs Date Temp Pulse Resp B/P (MAP) Pulse Ox O2 O2 Flow FiO2 Time Delivery Rate 06/29/18 99.2 68 17 131/63 99 11:31 (85) 06/29/18 30 09:25 06/25/18 Mechanical 16:06 Ventilator Intake and Output 06/28/18 06/28/18 06/29/18 1414:59 22:59 06:59 IntakeIntake Total 780 ml 780 ml OutputOutput Total 1600 ml 1050 ml BalanceBalance -820 ml -270 ml Constitutional: alert, oriented, well developed Psych: no complaints, nl mood/affect Head: normocephalic, atraumatic Eyes: nl conjunctiva, EOMI, nl lids, nl sclera, PERRL ENMT: nl external ears & nose, nl lips & teeth, nl nasal mucosa & septum Respiratory: clear to auscultation, normal air movement Cardiovascular: regular rate and rhythm, nl pulses Gastrointestinal: soft, nl liver, spleen, non-tender Musculoskeletal: nl extremities to inspection, nl gait and stance Results Result Diagram: 06/28/1862606/28/18626 Medications Medication Current Medications IV Flush (NS 10 ml) 10 ml PRN IV ; Start 05/06/18 at 20:30 Ascorbic Acid (Vitamin C) 500 mg DAILY GTB Last administered on 06/29/18at 09: 39; Admin Dose 500 MG; Start 05/07/18 at 09:00 Albuterol/ Ipratropium (Duoneb) 3 ml Q2H RESP THERAPY PRN HHN SHORTNESS OF BREATH Last administered on 06/28/18 14:20; Admin Dose 3 ML; Start 05/06/18 at 23:30 Zinc Sulfate (Zinc Sulfate) 220 mg DAILY GTB Last administered on 06/29/18 09:39; Admin Dose 220 MG; Start 05/07/18 at 09:00 Ondansetron HCl (Zofran Tab) 4 mg Q6H PRN GTB NAUSEA AND/OR VOMITING Last administered on 05/31/18 16:47; Admin Dose 4 MG; Start 05/07/18 at 00:15 Multivitamins (Multivitamin) 30 ml DAILY GTB Last administered on 06/29/18 09:38; Admin Dose 30 ML; Start 05/07/18 at 09:00 Miscellaneous Information (Pending Santyl Order For Wound Care) This patient goldman... PRN PRN XX WOUND CARE; Start 05/09/18 at 17:00 Spironolactone (Aldactone) 50 mg DAILY GTB Last administered on 06/29/18 09:38; Admin Dose 50 MG; Start 05/21/18 at 09:00 Famotidine (Pepcid) 20 mg DAILY PEG Last administered on 06/29/18 09:39; Admin Dose 20 MG; Start 05/23/18 at 09:00 Morphine Sulfate (morphine) 6 mg Q4H PRN PEG SEVERE PAIN LEVEL 7-10 Last administered on 06/29/18 12:21; Admin Dose 6 MG; Start 05/22/18 at 17:00 Lorazepam (Ativan) 0.5 mg Q4H PRN IV ANXIETY Last administered on 06/29/18 11:00; Admin Dose 0.5 MG; Start 05/30/18 at 12:00 Acetaminophen (Tylenol Tab) 650 mg Q4H PRN PO MILD PAIN(1-3)OR ELEVATED TEMP Last administered on 06/10/18 21:44; Admin Dose 650 MG; Start 05/31/18 at 13:00 Metoclopramide HCl (Reglan) 5 mg Q6 IV Last administered on 06/29/18 12:19; Admin Dose 5 MG; Start 05/31/18 at 13:00 Collagenase (Santyl) 1 applic DAILY TOP Last administered on 06/29/18 09:41; Admin Dose 1 APPLIC; Start 06/01/18 at 09:00 Clonidine (Catapres) 0.1 mg Q6H PRN PO ELEVATED BLOOD PRESSURE Last administered on 06/17/18 05:59; Admin Dose 0.1 MG; Start 06/03/18 at 03:30 Bumetanide (Bumex) 1 mg BID DIURETICS GTB Last administered on 06/29/18 05:16; Admin Dose 1 MG; Start 06/11/18 at 18:00 Amiodarone HCl (Cordarone) 200 mg Q12 PO Last administered on 06/29/18 09:38; Admin Dose 200 MG; Start 06/12/18 at 21:00 Collagenase (Santyl) 1 applic PRN PRN TOP WHEN SOILED; Start 06/13/18 at 01:00 Nystatin (Nystatin Powder) 1 applic BID TOP Last administered on 06/29/18 09:38; Admin Dose 1 APPLIC; Start 06/13/18 at 14:00 Vancomycin HCl (Vancomycin Oral Syringe) 250 mg Q48H GTB ; Start 06/29/18 at 14:00; Stop 07/06/18 at 13:59 Epoetin Zen-epbx (RETACRIT(esrd)) 20,000 unit Tu@1700 SC Last administered on 06/23/18 17:41; Admin Dose 20,000 UNIT; Start 06/16/18 at 18:30 Miscellaneous Information (*Order Clarification Bulletin) MEDICATION REQUIRES CLARIFICATION:PLE... Q8H XX Last administered on 06/22/18 23:27; Admin Dose 1 EA; Start 06/20/18 at 09:30 Amlodipine Besylate (Norvasc) 2.5 mg DAILY PO Last administered on 06/28/18 09:02; Admin Dose 2.5 MG; Start 06/25/18 at 09:00 Metoprolol Tartrate (Lopressor) 75 mg BID GTB Last administered on 06/28/18 19 :54; Admin Dose 75 MG; Start 06/24/18 at 21:00 Miscellaneous Information 1 ea NOTE XX ; Start 06/26/18 at 08:00 Dicyclomine HCl (Bentyl) 20 mg Q8 PO Last administered on 06/29/18 05:16; Admin Dose 20 MG; Start 06/27/18 at 22:00 Cholestyramine Resin (Questran Light) 4 gm 0600,1200,1800,2300 GTB Last administered on 06/29/18at 12:19; Admin Dose 4 GM; Start 06/27/18 at 18:00 Miscellaneous Information (*Order Clarification Bulletin) MEDICATION REQUIRES CLARIFICATI... Q8H XX ; Start 06/29/18 at 13:00 MANN VALDEZ MD June 29, 2018 13:00
[2018-06-29] MEDS: VANCOMYCIN HCL 250 MG/5ML POSYG GTB SCH (15:35)
--- NOTE | 2018-06-29 18:57 | CONS ---
Assessment/Plan Assessment/Plan Hospital Course (Demo Recall) Septic as well as hemorrhagic shock-resolved Acute respiratory failure status post intubation and repeat tracheostomy Acute blood loss anemia History of respiratory failure status post decannulation Preserved ejection fraction echocardiogram 05/10/2018 Paroxysmal atrial fibrillation Acute kidney injury History of hypertension-now labile BP -Patient with paroxysmal atrial fibrillation, has remained sinus -Decrease dose of beta-tin and titrate as tolerated -DC Norvasc -Continue amiodarone as tolerated -Vent management as per pulmonary -Fluid management and electrolytes as per renal -Antibiotics as per infectious disease -No anticoagulation given recurrent anemia requiring blood transfusions Consultation Date/Type/Reason Admit Date/Time May 06, 2018 at 17:38 Initial Consult Date 05/10/18 Type of Consult Cardiology Requesting Provider: ROLAND GIRON MD Date/Time of Note DATE: 06/29/18 TIME: 18:56 24 HR Interval Summary Free Text/Dictation pt seen and examined Exam/Review of Systems Vital Signs Vitals Vital Signs Date Temp Pulse Resp B/P (MAP) Pulse Ox O2 O2 Flow FiO2 Time Delivery Rate 06/29/18 71 23 99 30 17:10 06/29/18 98.4 126/66 15:22 (86) 06/25/18 Mechanical 16:06 Ventilator Intake and Output 06/28/18 06/28/18 06/29/18 1515:00 23:00 07:00 IntakeIntake Total 780 ml 780 ml OutputOutput Total 1600 ml 1050 ml BalanceBalance -820 ml -270 ml Exam Exam sleeping, nad Head: normocephalic Respiratory: other (course bs, no wheeze) Cardiovascular: regular rate and rhythm (s1s2) Gastrointestinal: soft, non-tender, bowel sounds Extremities: edema Labs Result Diagram: 06/28/1862606/28/18626 Medications Medications Current Medications IV Flush (NS 10 ml) 10 ml PRN IV ; Start 05/06/18 at 20:30 Ascorbic Acid (Vitamin C) 500 mg DAILY GTB Last administered on 06/29/18at 09:39; Admin Dose 500 MG; Start 05/07/18 at 09:00 Albuterol/ Ipratropium (Duoneb) 3 ml Q2H RESP THERAPY PRN HHN SHORTNESS OF BREATH Last administered on 06/28/18at 14:20; Admin Dose 3 ML; Start 05/06/18 at 23:30 Zinc Sulfate (Zinc Sulfate) 220 mg DAILY GTB Last administered on 06/29/18 09:39; Admin Dose 220 MG; Start 05/07/18 at 09:00 Ondansetron HCl (Zofran Tab) 4 mg Q6H PRN GTB NAUSEA AND/OR VOMITING Last administered on 05/31/18 16:47; Admin Dose 4 MG; Start 05/07/18 at 00:15 Multivitamins (Multivitamin) 30 ml DAILY GTB Last administered on 06/29/18 09:38; Admin Dose 30 ML; Start 05/07/18 at 09:00 Miscellaneous Information (Pending Santyl Order For Wound Care) This patient goldman... PRN PRN XX WOUND CARE; Start 05/09/18 at 17:00 Spironolactone (Aldactone) 50 mg DAILY GTB Last administered on 06/29/18 09:38; Admin Dose 50 MG; Start 05/21/18 at 09:00 Famotidine (Pepcid) 20 mg DAILY PEG Last administered on 06/29/18 09:39; Admin Dose 20 MG; Start 05/23/18 at 09:00 Morphine Sulfate (morphine) 6 mg Q4H PRN PEG SEVERE PAIN LEVEL 7-10 Last administered on 06/29/18 17:24; Admin Dose 6 MG; Start 05/22/18 at 17:00 Lorazepam (Ativan) 0.5 mg Q4H PRN IV ANXIETY Last administered on 06/29/18 15:37; Admin Dose 0.5 MG; Start 05/30/18 at 12:00 Acetaminophen (Tylenol Tab) 650 mg Q4H PRN PO MILD PAIN(1-3)OR ELEVATED TEMP Last administered on 06/10/18 21:44; Admin Dose 650 MG; Start 05/31/18 at 13:00 Metoclopramide HCl (Reglan) 5 mg Q6 IV Last administered on 06/29/18 17:22; Admin Dose 5 MG; Start 05/31/18 at 13:00 Collagenase (Santyl) 1 applic DAILY TOP Last administered on 06/29/18 09:41; Admin Dose 1 APPLIC; Start 06/01/18 at 09:00 Clonidine (Catapres) 0.1 mg Q6H PRN PO ELEVATED BLOOD PRESSURE Last administered on 06/17/18 05:59; Admin Dose 0.1 MG; Start 06/03/18 at 03:30 Bumetanide (Bumex) 1 mg BID DIURETICS GTB Last administered on 06/29/18 17:22; Admin Dose 1 MG; Start 06/11/18 at 18:00 Amiodarone HCl (Cordarone) 200 mg Q12 PO Last administered on 06/29/18 09:38; Admin Dose 200 MG; Start 06/12/18 at 21:00 Collagenase (Santyl) 1 applic PRN PRN TOP WHEN SOILED; Start 06/13/18 at 01:00 Nystatin (Nystatin Powder) 1 applic BID TOP Last administered on 06/29/18 09:38; Admin Dose 1 APPLIC; Start 06/13/18 at 14:00 Vancomycin HCl (Vancomycin Oral Syringe) 250 mg Q48H GTB Last administered on 06/29/18 15:35; Admin Dose 250 MG; Start 06/29/18 at 14:00; Stop 07/06/18 at 13:59 Epoetin Zen-epbx (RETACRIT(esrd)) 20,000 unit Tu@1700 SC Last administered on 06/23/18 17:41; Admin Dose 20,000 UNIT; Start 06/16/18 at 18:30 Miscellaneous Information (*Order Clarification Bulletin) MEDICATION REQUIRES CLARIFICATION:PLE... Q8H XX Last administered on 06/22/18 23:27; Admin Dose 1 EA; Start 06/20/18 at 09:30 Amlodipine Besylate (Norvasc) 2.5 mg DAILY PO Last administered on 06/28/18 09:02; Admin Dose 2.5 MG; Start 06/25/18 at 09:00 Metoprolol Tartrate (Lopressor) 75 mg BID GTB Last administered on 06/28/18 19:54; Admin Dose 75 MG; Start 06/24/18 at 21:00 Miscellaneous Information 1 ea NOTE XX ; Start 06/26/18 at 08:00 Dicyclomine HCl (Bentyl) 20 mg Q8 PO Last administered on 06/29/18 15:32; Admin Dose 20 MG; Start 06/27/18 at 22:00 Cholestyramine Resin (Questran Light) 4 gm 0600,1200,1800,2300 GTB Last administered on 06/29/18at 17:22; Admin Dose 4 GM; Start 06/27/18 at 18:00 Miscellaneous Information (*Order Clarification Bulletin) MEDICATION REQUIRES CLARIFICATI... Q8H XX ; Start 06/29/18 at 13:00 Evangelista Scanlon DO June 29, 2018 18:57
[2018-06-29] MEDS: METOPROLOL 50 MG TAB GTB SCH (21:31)
[2018-06-30] VITALS (22 sets, daily range): BP systolic 97–141; BP diastolic 50–79; PULSE 62–93; RESP 20–25
[2018-06-30] MEDS: METOCLOPRAMIDE 10 MG INJ IV SCH ×4 (05:35→23:24)
[2018-06-30] MEDS: CHOLESTYRAMINE (LIGHT) 4 GM PACKET GTB SCH ×4 (05:36→23:24)
[2018-06-30] MEDS: DICYCLOMINE 10 MG CAP PO SCH ×3 (05:36→21:17)
[2018-06-30] MEDS: BUMETANIDE 1 MG TAB GTB SCH ×2 (05:36→17:45)
[2018-06-30] MEDS: LORAZEPAM 2 MG INJ IV PRN ×2 (06:01→19:42)
--- NOTE | 2018-06-30 08:16 | CONS ---
Assessment/Plan Assessment/Plan Hospital Course (Demo Recall) 73 yo female 1. ABD pain -CT of abd 2. Renal failure.- on HD 3. Vent dependent resp failure 4. Chronic obstructive pulmonary disease. 5. Bipolar. 6. Paroxysmal atrial fibrillation. 7. Anemia of chronic disease. 8. CHF 9. Diarrhea 11. Diarrhea -s/p c diff colitis -taper off of vanco -resolved 12. H/O deep esophageal ulcer 13. Dysphagia with g tube 14. Anemia of chronic disease 15. UTI with positive cx CT of abd/pelvis 06/16 1. Nonspecific bibasilar ground-glass densities and the airspace disease, suggesting bilateral pneumonia versus pulmonary edema. 2. Atrophy of the left kidney. 2.3 cm left renal cyst. The right kidney demonstrates compensatory hypertrophy. No calculus or hydronephrosis in either kidney. 3. Atherosclerosis of the aorta. 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 No leak or rupture. 4. Mild nonspecific ascites in the pelvis. 5. Air-fluid levels are seen throughout the small bowel and colon. Consider mild ileus versus enterocolitis. PLAN: Continue with reglan and pepcid and bentyl Monitor tube feeds residuals q 6 hour Pt examined and plan of care discussed with Dr Carolina Consultation Date/Type/Reason Admit Date/Time May 06, 2018 at 17:38 Initial Consult Date 05/10/18 Requesting Provider: ROLAND GIRON MD Date/Time of Note DATE: 06/30/18 TIME: 08:14 24 HR Interval Summary Free Text/Dictation Pt c/o generalized abdominal pain. Dull. She has bm everyday, pasty brown. T olerating tube feeds. Exam/Review of Systems Exam Vitals Vital Signs Date Temp Pulse Resp B/P (MAP) Pulse Ox O2 O2 Flow FiO2 Time Delivery Rate 06/30/18 63 21 100 30 07:55 06/30/18 98.8 113/57 Mechanical 07:49 (75) Ventilator Intake and Output 06/29/18 06/29/18 06/30/18 1515:00 23:00 07:00 IntakeIntake Total 780 ml OutputOutput Total 900 ml BalanceBalance -120 ml Constitutional: alert, oriented Psych: no complaints Eyes: PERRL ENMT: mucosa pink and moist Respiratory: normal air movement Cardiovascular: regular rate and rhythm Gastrointestinal: soft, bowel sounds, tender Neurological: nl mental status Results Result Diagram: 06/28/1862606/28/18626 Medications Medication Current Medications IV Flush (NS 10 ml) 10 ml PRN IV ; Start 05/06/18 at 20:30 Ascorbic Acid (Vitamin C) 500 mg DAILY GTB Last administered on 06/29/18 09:39 ; Admin Dose 500 MG; Start 05/07/18 at 09:00 Albuterol/ Ipratropium (Duoneb) 3 ml Q2H RESP THERAPY PRN HHN SHORTNESS OF BREATH Last administered on 06/28/18 14:20; Admin Dose 3 ML; Start 05/06/18 at 23:30 Zinc Sulfate (Zinc Sulfate) 220 mg DAILY GTB Last administered on 06/29/18 09:39; Admin Dose 220 MG; Start 05/07/18 at 09:00 Ondansetron HCl (Zofran Tab) 4 mg Q6H PRN GTB NAUSEA AND/OR VOMITING Last administered on 05/31/18 16:47; Admin Dose 4 MG; Start 05/07/18 at 00:15 Multivitamins (Multivitamin) 30 ml DAILY GTB Last administered on 06/29/18 09:38; Admin Dose 30 ML; Start 05/07/18 at 09:00 [facility] This patient goldman... PRN PRN XX WOUND CARE; Start 05/09/18 at 17:00 Spironolactone (Aldactone) 50 mg DAILY GTB Last administered on 06/29/18 09:38; Admin Dose 50 MG; Start 05/21/18 at 09:00 Famotidine (Pepcid) 20 mg DAILY PEG Last administered on 06/29/18 09:39; Admin Dose 20 MG; Start 05/23/18 at 09:00 Morphine Sulfate (morphine) 6 mg Q4H PRN PEG SEVERE PAIN LEVEL 7-10 Last administered on 06/29/18 21:33; Admin Dose 6 MG; Start 05/22/18 at 17:00 Lorazepam (Ativan) 0.5 mg Q4H PRN IV ANXIETY Last administered on 06/30/18 06:01; Admin Dose 0.5 MG; Start 05/30/18 at 12:00 Acetaminophen (Tylenol Tab) 650 mg Q4H PRN PO MILD PAIN(1-3)OR ELEVATED TEMP Last administered on 06/10/18 21:44; Admin Dose 650 MG; Start 05/31/18 at 13:00 Metoclopramide HCl (Reglan) 5 mg Q6 IV Last administered on 06/30/18 05:35; Admin Dose 5 MG; Start 05/31/18 at 13:00 Collagenase (Santyl) 1 applic DAILY TOP Last administered on 06/29/18 09:41; Admin Dose 1 APPLIC; Start 06/01/18 at 09:00 Clonidine (Catapres) 0.1 mg Q6H PRN PO ELEVATED BLOOD PRESSURE Last administered on 06/17/18 05:59; Admin Dose 0.1 MG; Start 06/03/18 at 03:30 Bumetanide (Bumex) 1 mg BID DIURETICS GTB Last administered on 06/30/18 05:36; Admin Dose 1 MG; Start 06/11/18 at 18:00 Collagenase (Santyl) 1 applic PRN PRN TOP WHEN SOILED; Start 06/13/18 at 01:00 Nystatin (Nystatin Powder) 1 applic BID TOP Last administered on 06/29/18 21:32; Admin Dose 1 APPLIC; Start 06/13/18 at 14:00 Vancomycin HCl (Vancomycin Oral Syringe) 250 mg Q48H GTB Last administered on 06/29/18 15:35; Admin Dose 250 MG; Start 06/29/18 at 14:00; Stop 07/06/18 at 13:59 Epoetin Zen-epbx (RETACRIT(esrd)) 20,000 unit Tu@1700 SC Last administered on 06/23/18 17:41; Admin Dose 20,000 UNIT; Start 06/16/18 at 18:30 Miscellaneous Information 1 ea NOTE XX ; Start 06/26/18 at 08:00 Dicyclomine HCl (Bentyl) 20 mg Q8 PO Last administered on 06/30/18 05:36; Admin Dose 20 MG; Start 06/27/18 at 22:00 Cholestyramine Resin (Questran Light) 4 gm 0600,1200,1800,2300 GTB Last adminis tered on 06/30/18 05:36; Admin Dose 4 GM; Start 06/27/18 at 18:00 Miscellaneous Information (*Order Clarification Bulletin) MEDICATION REQUIRES CLARIFICATI... Q8H XX ; Start 06/29/18 at 13:00 Metoprolol Tartrate (Lopressor) 50 mg BID GTB Last administered on 06/29/18at 21:31; Admin Dose 50 MG; Start 06/29/18 at 21:00 Amiodarone HCl (Cordarone) 200 mg Q12 GTB ; Start 06/30/18 at 09:00 SHAHEEN GAMBOA June 30, 2018 08:16
--- NOTE | 2018-06-30 08:34 | PN ---
DATE: 06/30/2018 SUBJECTIVE: The patient is stable. No events overnight. OBJECTIVE: VITAL SIGNS: Blood pressure is 113/56, pulse 73, respirations 20, temperature 98.8. HEENT: Head is normocephalic. NECK: Supple. HEART: Regular rate. LUNGS: Show diminished breath sounds at the base. ABDOMEN: Soft, nontender to palpation without rebound or guarding. EXTREMITIES: Negative for clubbing, cyanosis. Trace edema. DERMATOLOGIC: No rashes. MUSCULOSKELETAL: No joint effusion. NEUROLOGIC: No change in exam. MEDICATIONS: Reviewed. LABORATORY DATA: Reviewed. ASSESSMENT AND PLAN: 1. Nonoliguric acute kidney injury on top of chronic kidney disease stage IIIB/IV with previous base line creatinine of 2.0 mg/dL. Etiology of acute kidney injury is secondary to acute tubular necrosis . The patient is status post hemodialysis. Renal function stabilized. Continue current plans, supp ortive care, renally dose all medications. 2. Volume overload, improving. Continue Bumex. 3. Hyponatremia. Continue to monitor. 4. Anemia. Continue to monitor hemoglobin and hematocrit levels. 5. Mineral bone disorder, monitor calcium and phosphorus levels. 6. Ventilator-dependent respiratory failure. Vent settings and ABG was reviewed. Continue to monit or. 7. Sepsis, status post shock. The patient is completing antibiotic course. 8. C. difficile. Continue oral vancomycin. 9. Lower extremity wounds. Continue wound care. 10. Dysphagia. Continue tube feeding. 11. Encephalopathy. Continue to monitor. Dictated By: JEANA BANSAL DO NR/NTS Conf#: [id number] DID#: [id number] CC: ROLAND GIRON MD; QUINTEN UMAÑA MD;*EndCC*
[2018-06-30] MEDS: SPIRONOLACTONE 25 MG TAB GTB SCH (08:39)
[2018-06-30] MEDS: ZINC SULFATE 220 MG CAP GTB SCH (08:39)
[2018-06-30] MEDS: ASCORBIC ACID 500 MG TAB GTB SCH (08:39)
[2018-06-30] MEDS: METOPROLOL 50 MG TAB GTB SCH ×2 (08:39→21:16)
[2018-06-30] MEDS: MULTIVITAMINS 30 ML CUP GTB SCH (08:39)
[2018-06-30] MEDS: BALSAM PERU/CASTOR OIL 60 GM TUBE TOP SCH ×2 (08:40→21:16)
[2018-06-30] MEDS: NYSTATIN 30 GM POWDER BTL TOP SCH ×2 (08:40→21:16)
[2018-06-30] MEDS: FAMOTIDINE 20 MG TAB PEG SCH (08:40)
[2018-06-30] MEDS: COLLAGENASE 5 GM (UD JAR) TOP SCH (08:40)
[2018-06-30] MEDS ORDERED: AMIODARONE 200 MG TAB GTB SCH (09:00)
--- NOTE | 2018-06-30 11:05 | CONS ---
Assessment/Plan Assessment/Plan Hospital Course (Demo Recall) # sepsis, leukocytosis, SIRS, pulmonary, cardiac - recurrent leukocytosis due to recurrent UTI, improved - s/p septic shock due to pneumonia and C diff colitis - acute on chronic hypoxic respiratory failure, persistent - s/p reintubation 05/12/2018 - s/p re-do trach on 05/29/2018 - recurrent colonization of the anterior neck wound with ESBL+kleb, MRSA, GBS, corynebacteria on 05/06/2018, s/p meropenem - h/o pneumonia vs. colonization of the airway by pseudomonas and ESBL+klebsiella - h/o possible, recurrent HCAP due to pseudomonas and ESBL+klebsiella - h/o recurrent HCAP due to MRSA and Enterobacter (culture of tracheal aspirate on 07/16/2017 that was collected at [facility]) . Pt took vancomycin and ceftazidime - h/o decannulation prior to admission - h/o tracheostomy on 06/11/2017 - h/o SIRS from UGIB in 2018 - h/o thoracentesis on 07/18/2017, transudative (protein <2, LDH 279) - h/o bleeding from the trach site in 2018 - h/o septic shock due to pneumonia, ARDS, bacteremia, fungemia in 2018 - h/o ARDS in 2018 - h/o smoking - COPD - h/o ILD per medical record - h/o PAF, improved # GI - possible ileus or enterocolitis on CT abd/pel 06/15/2018 - C diff colitis, diagnosed on 05/11/2018. Pt's on pGT vancomycin induction followed by taper (05/11/2018-); Pt previously took IV metronidazole (05/11/2018- 05/29/2018; restart 05/30/2018-06/05/18) too - h/o intermittent diarrhea, Pt had multiple negative C. diff tests at [facility] at OSH in the past; none was positive until 05/11/2018 - dysphagia - h/o PEG placement 06/13/2018 - protein calorie malnutrition - h/o coffee ground emesis/UGIB on 12/23/2017 due to deep ulceration of distal esophagus and gastritis on EGD 12/26/2017. No e/o H. pylori - h/o possible appendicitis on CT on 11/22/2017, Pt took ertapenem (11/24/2017-12/01/2017) - h/o extensive adhesions lower abdominal and pelvis between small bowel to each other and to colon and to abdominal wall, anterior pelvic wall chronic abscess secondary to probably an old perforated diverticulitis, torsion of small bowel around these dense adhesion causing multiple obstructive points - h/o laparoscopic exploration and extensive lysis of adhesions and drainage of anterior pelvic wall abscess 09/16/2017. Cultures were negative, no e/o malignancy. 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 S/p renally dosed amikacin for klebsiella in her urine culture (06/17-06/22/2018) - UTI due to pseudomonas and ESBL+klebsiella on 06/09/2018, Pt took one dose of fosfomycin on 06/10/2018 and cipro 06/12-06/15/2018 - anasarca - started on HD on 05/15/2018, via Juan in R groin - recurrent NATHAN on CKD - 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 Her strain of CRE was sensitive to colistin, Avycaz, and Vabomere but resistant to Zerbaxa (reported on 05/19/2018) - metabolic acidosis - adrenal insufficiency - h/o vaginal bleed in 2018 - h/o colonization of urinary tract by ESBL+klebsiella, VRE - h/o recurrent, symptomatic UTI due to carbapenem-resistant kleb (MDR strain) per urine culture 10/04/17, 10/09/17, 10/21/2017, P took colistin (10/09/2017- 10/15/2017), fosfomycin for carbapenemase-producing klebsiella and VRE on 10/25/2017 and 10/28/2017 - h/o funguria - h/o urinary retention # fungemia, bacteremia 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; Pt declined surgery for MVR per outside medical records; TTE 07/01/17 did not mention any thrombus; s/p voriconazole (05/25/2017-08/01/2017) - h/o bacteremia due to MSSA and proteus s/p ceftriaxone; repeat blood cultures were negative on 06/14/2017 # musculoskeletal and dermatological - L hand pain - dry skin - chronic wound of LLE - h/o infection of wound of LLE - h/o debridement of wound of LLE on 08/06/2017 - h/o recurrent herpes labialis, Pt took acyclovir, valacyclovir - h/o Osler's nodes (eschar) of R toes with erythematous skin; desquamation of the skin and open lacerations on R plantar foot. improved. Probable manifestation of endocarditis. Pt declined MRI on 08/06/2017 - h/o infection of R toes due to pseudomonas. coagulase negative Staph likely a colonizer - h/o intertrigo of the groin, resolved with nystatin powder - h/o scabies, locally crusted lesion over L scapula, s/p permethrin cream and pGT ivermectin on 08/11/2017, 08/12/2017, 08/19/2017. Repeat skin scraping on 08/21/2017 was negative for scabies # psych, neuro - decreased hearing b/l - s/p acute toxic metabolic encephalopathy - h/o critical illness polyneuropathy - anxiety/depression, bipolar d/o, seen by Psychiatry in the past - chronic pain syndrome - h/o medical non-compliance: she would refuse her medications, treatment and straight catheterization in 2018 # hematological, vascular - chronic anemia requiring blood transfusion intermittently - macrocytic anemia - aneurysmal dilatation of the distal aorta visualized on CT 06/15/2018 - PVD Recommendations: - Monitor closely off systemic antibiotics. S/p renally dosed amikacin for klebsiella in her urine culture (06/17-06/22/2018) - Continue pGT vancomycin taper: 06/29-07/05/2018: q48hrs Plan was d/w patient's RN, NA at bedside, and with Dr. Doyle via [employer] messaging. Thank you Consultation Date/Type/Reason Admit Date/Time May 06, 2018 at 17:38 Initial Consult Date 05/07/18 Type of Consult ID Requesting Provider: ROLAND GIRON MD Date/Time of Note DATE: 06/30/18 TIME: 11:03 24 HR Interval Summary Free Text/Dictation The patient mouthed to me "I'm not well, I'm in pain." When I began to ask her the quality and area that she is experiencing pain, she told me "stop, stop now, stop talking, I don't want you to talk to me." I informed her that I am here to help and by asking these questions I can better understand where her pain is and also that I will alert nursing to bring her pain medication if it is due. Patient stated to me "I need morphine now." I alerted the nurse who brought her medication. The patient refused to answer any other questions and continued to tell me "stop talking, stop." She allowed me to assess her. No acute issues were reported by nursing, remains afebrile. No diarrhea reported, per NA no BM thusfar today. Exam/Review of Systems Exam Vitals Vital Signs Date Temp Pulse Resp B/P (MAP) Pulse Ox O2 O2 Flow FiO2 Time Delivery Rate 06/30/18 62 20 100 30 09:37 06/30/18 98.8 113/57 Mechanical 07:49 (75) Ventilator Intake and Output 06/29/18 06/29/18 06/30/18 1515:00 23:00 07:00 IntakeIntake Total 780 ml OutputOutput Total 900 ml BalanceBalance -120 ml Allergies Coded Allergies shellfish derived (Unverified Allergy, Unknown, 05/06/18) . Exam Constitutional: alert, well developed, non-verbal, frail, obese, other (chronically debilitated, awake) Psych: other (irritible) Head: normocephalic, atraumatic Eyes: nl conjunctiva, nl lids, nl sclera ENMT: nl external ears & nose, nl nasal mucosa & septum Neck: supple, non-tender, other (on vent via trach, trach midline, site is c/d/i) Respiratory: normal air movement, diminished breath sounds (bilaterally, anteriorly); No wheezing Cardiovascular: regular rate and rhythm, nl pulses Gastrointestinal: soft, non-tender, bowel sounds (normoactive ), other (PEG site c/d/i, connected to TF); No distended, No firm Genitourinary - Female: other (F/c draining yellow urine. HD catheter R groin, site is c/d/i; +Intertrigo of groin) Musculoskeletal: muscle weakness, other (julia foot drop) Extremities: normal pulses, edema (BUE, BLE); No tenderness Neurological: other (awake, alert, follows simple commands, answers questions by mouthing words and shaking head yes or no) Skin: nl turgor, other (Reviewed nsg notes/photos. LLE dressing c/d/i) Results Result Diagram: 06/28/1862606/28/18626 Medications Medication Current Medications IV Flush (NS 10 ml) 10 ml PRN IV ; Start 05/06/18 at 20:30 Ascorbic Acid (Vitamin C) 500 mg DAILY GTB Last administered on 06/30/18 08:39; Admin Dose 500 MG; Start 05/07/18 at 09:00 Albuterol/ Ipratropium (Duoneb) 3 ml Q2H RESP THERAPY PRN HHN SHORTNESS OF BREATH Last administered on 06/28/18 14:20; Admin Dose 3 ML; Start 05/06/18 at 23:30 Zinc Sulfate (Zinc Sulfate) 220 mg DAILY GTB Last administered on 06/30/18 08:39; Admin Dose 220 MG; Start 05/07/18 at 09:00 Ondansetron HCl (Zofran Tab) 4 mg Q6H PRN GTB NAUSEA AND/OR VOMITING Last administered on 05/31/18 16:47; Admin Dose 4 MG; Start 05/07/18 at 00:15 Multivitamins (Multivitamin) 30 ml DAILY GTB Last administered on 06/30/18 08:39; Admin Dose 30 ML; Start 05/07/18 at 09:00 Miscellaneous Information (Pending Santyl Order For Wound Care) This patient goldman... PRN PRN XX WOUND CARE; Start 05/09/18 at 17:00 Spironolactone (Aldactone) 50 mg DAILY GTB Last administered on 06/30/18 08:39; Admin Dose 50 MG; Start 05/21/18 at 09:00 Famotidine (Pepcid) 20 mg DAILY PEG Last administered on 06/30/18 08:40; Admin Dose 20 MG; Start 05/23/18 at 09:00 Morphine Sulfate (morphine) 6 mg Q4H PRN PEG SEVERE PAIN LEVEL 7-10 Last administered on 06/29/18 21:33; Admin Dose 6 MG; Start 05/22/18 at 17:00 Lorazepam (Ativan) 0.5 mg Q4H PRN IV ANXIETY Last administered on 06/30/18 06:01; Admin Dose 0.5 MG; Start 05/30/18 at 12:00 Acetaminophen (Tylenol Tab) 650 mg Q4H PRN PO MILD PAIN(1-3)OR ELEVATED TEMP Last administered on 06/10/18 21:44; Admin Dose 650 MG; Start 05/31/18 at 13:00 Metoclopramide HCl (Reglan) 5 mg Q6 IV Last administered on 06/30/18 05:35; Admin Dose 5 MG; Start 05/31/18 at 13:00 Collagenase (Santyl) 1 applic DAILY TOP Last administered on 06/29/18 09:41; Admin Dose 1 APPLIC; Start 06/01/18 at 09:00 Clonidine (Catapres) 0.1 mg Q6H PRN PO ELEVATED BLOOD PRESSURE Last administered on 06/17/18 05:59; Admin Dose 0.1 MG; Start 06/03/18 at 03:30 Bumetanide (Bumex) 1 mg BID DIURETICS GTB Last administered on 06/30/18 05 :36; Admin Dose 1 MG; Start 06/11/18 at 18:00 Collagenase (Santyl) 1 applic PRN PRN TOP WHEN SOILED; Start 06/13/18 at 01:00 Nystatin (Nystatin Powder) 1 applic BID TOP Last administered on 06/30/18 08:40; Admin Dose 1 APPLIC; Start 06/13/18 at 14:00 Vancomycin HCl (Vancomycin Oral Syringe) 250 mg Q48H GTB Last administered on 06/29/18at 15:35; Admin Dose 250 MG; Start 06/29/18 at 14:00; Stop 07/06/18 at 13:59 Epoetin Zen-epbx (RETACRIT(esrd)) 20,000 unit Tu@1700 SC Last administered on 06/23/18at 17:41; Admin Dose 20,000 UNIT; Start 06/16/18 at 18:30 Miscellaneous Information 1 ea NOTE XX ; Start 06/26/18 at 08:00 Dicyclomine HCl (Bentyl) 20 mg Q8 PO Last administered on 06/30/18at 05:36; Admin Dose 20 MG; Start 06/27/18 at 22:00 Cholestyramine Resin (Questran Light) 4 gm 0600,1200,1800,2300 GTB Last administered on 06/30/18at 05:36; Admin Dose 4 GM; Start 06/27/18 at 18:00 Miscellaneous Information (*Order Clarification Bulletin) MEDICATION REQUIRES CLARIFICATI... Q8H XX ; Start 06/29/18 at 13:00 Metoprolol Tartrate (Lopressor) 50 mg BID GTB Last administered on 06/30/18at 08 :39; Admin Dose 50 MG; Start 06/29/18 at 21:00 Amiodarone HCl (Cordarone) 200 mg Q12 GTB Last administered on 06/30/18at 08:40; Admin Dose 200 MG; Start 06/30/18 at 09:00 KENA MÉNDEZ NP June 30, 2018 11:05
[2018-06-30] MEDS: morphine LIQ (10 MG/5 ML) CUP PEG PRN (12:07)
--- NOTE | 2018-06-30 15:09 | PN ---
Date/Time of Note Date/Time of Note Late entry , pt is seen and examined on DATE: 06/29/18 TIME: 14:04 Assessment/Plan VTE Prophylaxis Risk score (from [facility])>0 risk: 12 SCD applied (from [facility]): Yes Pharmacological prophylaxis: NA/contraindicated Pharm contraindication: other Lines/Catheters IV Catheter Type (from [facility]): PICC Line Central line still needed: Yes Urinary Cath still in place: Yes Reason Cath still needed: urinary retention Assessment/Plan Hospital Course Patient continues on ventilatory support without acute distress, remains hemodynamically stable, afebrile, pending nursing home facility placement. Assessment/Plan -MDR Klebsiella urinary tract infection, completed treatment with amikacin. Dr. Doyle is following in infectious consultation. -Atrial fibrillation was rapid ventricular response, patient remains in sinus rhythm continue metoprolol and amiodarone. Dr. Scanlon is following in cardiology consultation. -S/p septic shock secondary to urinary tract infection, anterior neck soft tissue infection, and C. difficile colitis. -C-diff colitis, continue G-tube Vanco at the taper doses, -Acute respiratory failure requiring intubation and ventilatory support. Dr. Lambert is following in pulmonology consultation. -S/p tracheostomy on 05/29/18. -Acute kidney injury on chronic kidney disease. Started on HD this admission. Dr. Mckeon is following in nephrology consultation. -Anemia of chronic inflammation, stool for OB is negative, status post blood transfusion. Continue Epogen. -Metabolic acidosis, resolved. -Acute diastolic congestive heart failure. -Paroxysmal atrial fibrillation -COPD -Dysphagia with PEG. -G-tube mild malfunction, changed by GI Dr. Carolina is following in gastroenterology consultation. -Obesity Further recommendations based on clinical course. Plan of care discussed with Dr. Eisenberg. Result Diagram: 06/28/1862606/28/18626 Exam/Review of Systems Exam Vitals Vital Signs Date Temp Pulse Resp B/P (MAP) Pulse Ox O2 O2 Flow FiO2 Time Delivery Rate 06/30/18 65 20 100 30 13:15 06/30/18 98.2 131/79 Mechanical 11:40 (96) Ventilator Intake and Output 06/29/18 06/29/18 06/30/18 1515:00 23:00 07:00 IntakeIntake Total 780 ml OutputOutput Total 900 ml BalanceBalance -120 ml Exam Constitutional: alert, oriented Neck: other (Tracheostomy) Respiratory: diminished breath sounds Cardiovascular: regular rate and rhythm Gastrointestinal: soft, non-tender, other (G-tube) Extremities: normal pulses Neurological: nl mental status Medications Medication Current Medications IV Flush (NS 10 ml) 10 ml PRN IV ; Start 05/06/18 at 20:30 Ascorbic Acid (Vitamin C) 500 mg DAILY GTB Last administered on 06/30/18 08:39; Admin Dose 500 MG; Start 05/07/18 at 09:00 Albuterol/ Ipratropium (Duoneb) 3 ml Q2H RESP THERAPY PRN HHN SHORTNESS OF BREATH Last administered on 06/28/18 14:20; Admin Dose 3 ML; Start 05/06/18 at 23:30 Zinc Sulfate (Zinc Sulfate) 220 mg DAILY GTB Last administered on 06/30/18 08:39; Admin Dose 220 MG; Start 05/07/18 at 09:00 Ondansetron HCl (Zofran Tab) 4 mg Q6H PRN GTB NAUSEA AND/OR VOMITING Last administered on 05/31/18 16:47; Admin Dose 4 MG; Start 05/07/18 at 00:15 Multivitamins (Multivitamin) 30 ml DAILY GTB Last administered on 06/30/18 08:39; Admin Dose 30 ML; Start 05/07/18 at 09:00 [facility] This patient goldman... PRN PRN XX WOUND CARE; Start 05/09/18 at 17:00 Spironolactone (Aldactone) 50 mg DAILY GTB Last administered on 06/30/18 08:39; Admin Dose 50 MG; Start 05/21/18 at 09:00 Famotidine (Pepcid) 20 mg DAILY PEG Last administered on 06/30/18 08:40; Admin Dose 20 MG; Start 05/23/18 at 09:00 Morphine Sulfate (morphine) 6 mg Q4H PRN PEG SEVERE PAIN LEVEL 7-10 Last administered on 06/30/18 12:07; Admin Dose 6 MG; Start 05/22/18 at 17:00 Lorazepam (Ativan) 0.5 mg Q4H PRN IV ANXIETY Last administered on 06/30/18 06:01; Admin Dose 0.5 MG; Start 05/30/18 at 12:00 Acetaminophen (Tylenol Tab) 650 mg Q4H PRN PO MILD PAIN(1-3)OR ELEVATED TEMP Last administered on 06/10/18 21:44; Admin Dose 650 MG; Start 05/31/18 at 13:00 Metoclopramide HCl (Reglan) 5 mg Q6 IV Last administered on 06/30/18 12:08; Admin Dose 5 MG; Start 05/31/18 at 13:00 Collagenase (Santyl) 1 applic DAILY TOP Last administered on 06/29/18 09:41; Admin Dose 1 APPLIC; Start 06/01/18 at 09:00 Clonidine (Catapres) 0.1 mg Q6H PRN PO ELEVATED BLOOD PRESSURE Last administered on 06/17/18 05:59; Admin Dose 0.1 MG; Start 06/03/18 at 03:30 Bumetanide (Bumex) 1 mg BID DIURETICS GTB Last administered on 06/30/18 05:36 ; Admin Dose 1 MG; Start 06/11/18 at 18:00 Collagenase (Santyl) 1 applic PRN PRN TOP WHEN SOILED; Start 06/13/18 at 01:00 Nystatin (Nystatin Powder) 1 applic BID TOP Last administered on 06/30/18at 0 8:40; Admin Dose 1 APPLIC; Start 06/13/18 at 14:00 Vancomycin HCl (Vancomycin Oral Syringe) 250 mg Q48H GTB Last administered on 06/29/18 15:35; Admin Dose 250 MG; Start 06/29/18 at 14:00; Stop 07/06/18 at 13:59 Epoetin Zen-epbx (RETACRIT(esrd)) 20,000 unit Tu@1700 SC Last administered on 06/23/18 17:41; Admin Dose 20,000 UNIT; Start 06/16/18 at 18:30 Miscellaneous Information 1 ea NOTE XX ; Start 06/26/18 at 08:00 Dicyclomine HCl (Bentyl) 20 mg Q8 PO Last administered on 06/30/18 14:31; A dmin Dose 20 MG; Start 06/27/18 at 22:00 Cholestyramine Resin (Questran Light) 4 gm 0600,1200,1800,2300 GTB Last administered on 06/30/18at 12:07; Admin Dose 4 GM; Start 06/27/18 at 18:00 Miscellaneous Information (*Order Clarification Bulletin) MEDICATION REQUIRES CLARIFICATI... Q8H XX ; Start 06/29/18 at 13:00 Metoprolol Tartrate (Lopressor) 50 mg BID GTB Last administered on 06/30/18at 08:39; Admin Dose 50 MG; Start 06/29/18 at 21:00 Amiodarone HCl (Cordarone) 200 mg Q12 GTB Last administered on 06/30/18at 08:40; Admin Dose 200 MG; Start 06/30/18 at 09:00 Miscellaneous Information (*Order Clarification Bulletin) MEDICATION REQUIRES CLARIFICATI... Q8H XX ; Start 06/30/18 at 13:30; Stop 07/02/18 at 13:29 GRISELDA DENNIS June 30, 2018 15:09
--- NOTE | 2018-06-30 15:17 | PN ---
Date/Time of Note Date/Time of Note DATE: 06/30/18 TIME: 15:13 Assessment/Plan VTE Prophylaxis Risk score (from [facility])>0 risk: 12 SCD applied (from [facility]): Yes Pharmacological prophylaxis: NA/contraindicated Pharm contraindication: other Lines/Catheters IV Catheter Type (from [facility]): PICC Line Central line still needed: Yes Urinary Cath still in place: Yes Reason Cath still needed: urinary retention Assessment/Plan Hospital Course Patient patient is awake alert, sinus rhythm with occasional PAC patient has continued on amiodarone and metoprolol, continues on ventilatory support without acute distress. No placement to group home facility per case management meeting in the morning. Assessment/Plan -MDR Klebsiella urinary tract infection, completed treatment with amikacin. Dr. Doyle is following in infectious consultation. -Atrial fibrillation was rapid ventricular response, patient remains in sinus rhythm continue metoprolol and amiodarone. Dr. Scanlon is following in cardiology consultation. -S/p septic shock secondary to urinary tract infection, anterior neck soft tissue infection, and C. difficile colitis. -C-diff colitis, continue G-tube Vanco at the taper doses, -Acute respiratory failure requiring intubation and ventilatory support. Dr. Lambert is following in pulmonology consultation. -S/p tracheostomy on 05/29/18. -Acute kidney injury on chronic kidney disease. Started on HD this admission. Dr. Mckeon is following in nephrology consultation. -Anemia of chronic inflammation, stool for OB is negative, status post blood transfusion. Continue Epogen. -Metabolic acidosis, resolved. -Acute diastolic congestive heart failure. -Paroxysmal atrial fibrillation -COPD -Dysphagia with PEG. -G-tube mild malfunction, changed by GI Dr. Carolina is following in gastroenterology consultation. -Obesity Further recommendations based on clinical course. Plan of care discussed with Dr. Eisenberg. Result Diagram: 06/28/1862606/28/18626 Exam/Review of Systems Exam Vitals Vital Signs Date Temp Pulse Resp B/P (MAP) Pulse Ox O2 O2 Flow FiO2 Time Delivery Rate 06/30/18 65 20 100 30 13:15 06/30/18 98.2 131/79 Mechanical 11:40 (96) Ventilator Intake and Output 06/29/18 06/29/18 06/30/18 1414:59 22:59 06:59 IntakeIntake Total 780 ml OutputOutput Total 900 ml BalanceBalance -120 ml Exam Constitutional: alert, oriented Neck: other (Tracheostomy) Respiratory: diminished breath sounds Cardiovascular: regular rate and rhythm Gastrointestinal: soft, non-tender, other (G-tube) Extremities: normal pulses Neurological: nl mental status Medications Medication Current Medications IV Flush (NS 10 ml) 10 ml PRN IV ; Start 05/06/18 at 20:30 Ascorbic Acid (Vitamin C) 500 mg DAILY GTB Last administered on 06/30/18 08:39; Admin Dose 500 MG; Start 05/07/18 at 09:00 Albuterol/ Ipratropium (Duoneb) 3 ml Q2H RESP THERAPY PRN HHN SHORTNESS OF BREATH Last administered on 06/28/18 14:20; Admin Dose 3 ML; Start 05/06/18 at 23:30 Zinc Sulfate (Zinc Sulfate) 220 mg DAILY GTB Last administered on 06/30/18 08:39; Admin Dose 220 MG; Start 05/07/18 at 09:00 Ondansetron HCl (Zofran Tab) 4 mg Q6H PRN GTB NAUSEA AND/OR VOMITING Last a dministered on 05/31/18 16:47; Admin Dose 4 MG; Start 05/07/18 at 00:15 Multivitamins (Multivitamin) 30 ml DAILY GTB Last administered on 06/30/18 08:39; Admin Dose 30 ML; Start 05/07/18 at 09:00 Miscellaneous Information (Pending [facility] Order For Wound Care) This patient goldman... PRN PRN XX WOUND CARE; Start 05/09/18 at 17:00 Spironolactone (Aldactone) 50 mg DAILY GTB Last administered on 06/30/18 08:39; Admin Dose 50 MG; Start 05/21/18 at 09:00 Famotidine (Pepcid) 20 mg DAILY PEG Last administered on 06/30/18 08:40; Admin Dose 20 MG; Start 05/23/18 at 09:00 Morphine Sulfate (morphine) 6 mg Q4H PRN PEG SEVERE PAIN LEVEL 7-10 Last administered on 06/30/18 12:07; Admin Dose 6 MG; Start 05/22/18 at 17:00 Lorazepam (Ativan) 0.5 mg Q4H PRN IV ANXIETY Last administered on 06/30/18 06:01; Admin Dose 0.5 MG; Start 05/30/18 at 12:00 Acetaminophen (Tylenol Tab) 650 mg Q4H PRN PO MILD PAIN(1-3)OR ELEVATED TEMP Last administered on 06/10/18 21:44; Admin Dose 650 MG; Start 05/31/18 at 13:00 Metoclopramide HCl (Reglan) 5 mg Q6 IV Last administered on 06/30/18 12:08; Admin Dose 5 MG; Start 05/31/18 at 13:00 Collagenase (Santyl) 1 applic DAILY TOP Last administered on 06/29/18 09:41; Admin Dose 1 APPLIC; Start 06/01/18 at 09:00 Clonidine (Catapres) 0.1 mg Q6H PRN PO ELEVATED BLOOD PRESSURE Last administered on 06/17/18 05:59; Admin Dose 0.1 MG; Start 06/03/18 at 03:30 Bumetanide (Bumex) 1 mg BID DIURETICS GTB Last administered on 06/30/18 05:36; Admin Dose 1 MG; Start 06/11/18 at 18:00 Collagenase (Santyl) 1 applic PRN PRN TOP WHEN SOILED; Start 06/13/18 at 01:00 Nystatin (Nystatin Powder) 1 applic BID TOP Last administered on 06/30/18 08:40; Admin Dose 1 APPLIC; Start 06/13/18 at 14:00 Vancomycin HCl (Vancomycin Oral Syringe) 250 mg Q48H GTB Last administered on 15:35; Admin Dose 250 MG; Start 06/29/18 at 14:00; Stop 07/06/18 at 13:59 Epoetin Zen-epbx (RETACRIT(esrd)) 20,000 unit Tu@1700 SC Last administered on 06/23/18 17:41; Admin Dose 20,000 UNIT; Start 06/16/18 at 18:30 Miscellaneous Information 1 ea NOTE XX ; Start 06/26/18 at 08:00 Dicyclomine HCl (Bentyl) 20 mg Q8 PO Last administered on 06/30/18 14:31; Admin Dose 20 MG; Start 06/27/18 at 22:00 Cholestyramine Resin (Questran Light) 4 gm 0600,1200,1800,2300 GTB Last administered on 06/30/18at 12:07; Admin Dose 4 GM; Start 06/27/18 at 18:00 Miscellaneous Information (*Order Clarification Bulletin) MEDICATION REQUIRES CLARIFICATI... Q8H XX ; Start 06/29/18 at 13:00 Metoprolol Tartrate (Lopressor) 50 mg BID GTB Last administered on 06/30/18at 08:39; Admin Dose 50 MG; Start 06/29/18 at 21:00 Amiodarone HCl (Cordarone) 200 mg Q12 GTB Last administered on 06/30/18at 08:40; Admin Dose 200 MG; Start 06/30/18 at 09:00 Miscellaneous Information (*Order Clarification Bulletin) MEDICATION REQUIRES CLARIFICATI... Q8H XX ; Start 06/30/18 at 13:30; Stop 07/02/18 at 13:29 GRISELDA DENNIS June 30, 2018 15:17
--- NOTE | 2018-06-30 17:22 | CONS ---
Assessment/Plan Assessment/Plan Hospital Course (Demo Recall) Septic as well as hemorrhagic shock-resolved Acute respiratory failure status post intubation and repeat tracheostomy Acute blood loss anemia History of respiratory failure status post decannulation Preserved ejection fraction echocardiogram 05/10/2018 Paroxysmal atrial fibrillation Acute kidney injury History of hypertension-now labile BP -Patient with paroxysmal atrial fibrillation, has remained sinus -Continue beta-tin and titrate as tolerated -Decrease amiodarone to daily -Vent management as per pulmonary -Fluid management and electrolytes as per renal -Antibiotics as per infectious disease -No anticoagulation given recurrent anemia requiring blood transfusions Consultation Date/Type/Reason Admit Date/Time May 06, 2018 at 17:38 Initial Consult Date 05/10/18 Type of Consult Cardiology Requesting Provider: ROLAND GIRON MD Date/Time of Note DATE: 06/30/18 TIME: 17:21 24 HR Interval Summary Free Text/Dictation No shortness of breath, palpitations Exam/Review of Systems Vital Signs Vitals Vital Signs Date Temp Pulse Resp B/P (MAP) Pulse Ox O2 O2 Flow FiO2 Time Delivery Rate 06/30/18 69 16:01 06/30/18 98.3 24 128/63 100 Mechanical 15:24 (84) Ventilator 06/30/18 30 15:14 Intake and Output 06/29/18 06/29/18 06/30/18 1515:00 23:00 07:00 IntakeIntake Total 780 ml OutputOutput Total 900 ml BalanceBalance -120 ml Exam Constitutional: alert (Following commands, no apparent distress) Head: normocephalic Respiratory: other (Coarse breath sounds bilaterally, no wheezing) Cardiovascular: regular rate and rhythm (S1-S2 heard) Gastrointestinal: soft, non-tender, bowel sounds Extremities: edema Labs Result Diagram: 06/28/1862606/28/18626 Medications Medications Current Medications IV Flush (NS 10 ml) 10 ml PRN IV ; Start 05/06/18 at 20:30 Ascorbic Acid (Vitamin C) 500 mg DAILY GTB Last administered on 06/30/18at 08:39; Admin Dose 500 MG; Start 05/07/18 at 09:00 Albuterol/ Ipratropium (Duoneb) 3 ml Q2H RESP THERAPY PRN HHN SHORTNESS OF BREATH Last administered on 06/28/18at 14:20; Admin Dose 3 ML; Start 05/06/18 at 23:30 Zinc Sulfate (Zinc Sulfate) 220 mg DAILY GTB Last administered on 06/30/18 08:39; Admin Dose 220 MG; Start 05/07/18 at 09:00 Ondansetron HCl (Zofran Tab) 4 mg Q6H PRN GTB NAUSEA AND/OR VOMITING Last administered on 05/31/18 16:47; Admin Dose 4 MG; Start 05/07/18 at 00:15 Multivitamins (Multivitamin) 30 ml DAILY GTB Last administered on 06/30/18 08:39; Admin Dose 30 ML; Start 05/07/18 at 09:00 Miscellaneous Information (Pending Santyl Order For Wound Care) This patient goldman... PRN PRN XX WOUND CARE; Start 05/09/18 at 17:00 Spironolactone (Aldactone) 50 mg DAILY GTB Last administered on 06/30/18 08:39; Admin Dose 50 MG; Start 05/21/18 at 09:00 Famotidine (Pepcid) 20 mg DAILY PEG Last administered on 06/30/18 08:40; Admin Dose 20 MG; Start 05/23/18 at 09:00 Morphine Sulfate (morphine) 6 mg Q4H PRN PEG SEVERE PAIN LEVEL 7-10 Last admi nistered on 06/30/18 12:07; Admin Dose 6 MG; Start 05/22/18 at 17:00 Lorazepam (Ativan) 0.5 mg Q4H PRN IV ANXIETY Last administered on 06/30/18 06:01; Admin Dose 0.5 MG; Start 05/30/18 at 12:00 Acetaminophen (Tylenol Tab) 650 mg Q4H PRN PO MILD PAIN(1-3)OR ELEVATED TEMP Last administered on 06/10/18 21:44; Admin Dose 650 MG; Start 05/31/18 at 13:00 Metoclopramide HCl (Reglan) 5 mg Q6 IV Last administered on 06/30/18 12:08; Admin Dose 5 MG; Start 05/31/18 at 13:00 Collagenase (Santyl) 1 applic DAILY TOP Last administered on 06/29/18 09:41; Admin Dose 1 APPLIC; Start 06/01/18 at 09:00 Clonidine (Catapres) 0.1 mg Q6H PRN PO ELEVATED BLOOD PRESSURE Last administered on 06/17/18 05:59; Admin Dose 0.1 MG; Start 06/03/18 at 03:30 Bumetanide (Bumex) 1 mg BID DIURETICS GTB Last administered on 06/30/18 05:36; Admin Dose 1 MG; Start 06/11/18 at 18:00 Collagenase (Santyl) 1 applic PRN PRN TOP WHEN SOILED; Start 06/13/18 at 01:00 Nystatin (Nystatin Powder) 1 applic BID TOP Last administered on 06/30/18 08:40; Admin Dose 1 APPLIC; Start 06/13/18 at 14:00 Vancomycin HCl (Vancomycin Oral Syringe) 250 mg Q48H GTB Last administered on 06/29/18 15:35; Admin Dose 250 MG; Start 06/29/18 at 14:00; Stop 07/06/18 at 13:59 Epoetin Zen-epbx (RETACRIT(esrd)) 20,000 unit Tu@1700 SC Last administered on 06/23/18 17:41; Admin Dose 20,000 UNIT; Start 06/16/18 at 18:30 Miscellaneous Information 1 ea NOTE XX ; Start 06/26/18 at 08:00 Dicyclomine HCl (Bentyl) 20 mg Q8 PO Last administered on 06/30/18 14:31; Admin Dose 20 MG; Start 06/27/18 at 22:00 Cholestyramine Resin (Questran Light) 4 gm 0600,1200,1800,2300 GTB Last administered on 06/30/18 12:07; Admin Dose 4 GM; Start 06/27/18 at 18:00 Miscellaneous Information (*Order Clarification Bulletin) MEDICATION REQUIRES CLARIFICATI... Q8H XX ; Start 06/29/18 at 13:00 Metoprolol Tartrate (Lopressor) 50 mg BID GTB Last administered on 06/30/18 08:39; Admin Dose 50 MG; Start 06/29/18 at 21:00 Amiodarone HCl (Cordarone) 200 mg Q12 GTB Last administered on 06/30/18 08:40; Admin Dose 200 MG; Start 06/30/18 at 09:00 Miscellaneous Information (*Order Clarification Bulletin) MEDICATION REQUIRES CLARIFICATI... Q8H XX ; Start 06/30/18 at 13:30; Stop 07/02/18 at 13:29 Evangelista Scanlon DO June 30, 2018 17:22
[2018-06-30] MEDS: EPOETIN ALFA-EPBX (ESRD) 10,000 UNIT/ML VIAL SC SCH (17:46)
[2018-06-30] MEDS: ALBUTEROL/IPRATROPIUM (NEB) 3 ML AMP HHN PRN (19:30)
[2018-07-01] VITALS (21 sets, daily range): BP systolic 104–118; BP diastolic 52–107; PULSE 60–78; RESP 13–25
[2018-07-01] MEDS: BUMETANIDE 1 MG TAB GTB SCH ×2 (05:50→17:38)
[2018-07-01] MEDS: METOCLOPRAMIDE 10 MG INJ IV SCH ×4 (05:50→23:36)
[2018-07-01] MEDS: CHOLESTYRAMINE (LIGHT) 4 GM PACKET GTB SCH ×4 (05:50→22:06)
[2018-07-01] MEDS: DICYCLOMINE 10 MG CAP PO SCH ×3 (05:52→22:06)
[2018-07-01] MEDS ORDERED: MAGNESIUM SULFATE 2 GM/50 ML 50 ML IVPB ONE (08:30)
[2018-07-01] MEDS: COLLAGENASE 5 GM (UD JAR) TOP SCH (08:45)
[2018-07-01] MEDS: ASCORBIC ACID 500 MG TAB GTB SCH (08:52)
[2018-07-01] MEDS: SPIRONOLACTONE 25 MG TAB GTB SCH (08:52)
[2018-07-01] MEDS: FAMOTIDINE 20 MG TAB PEG SCH (08:53)
[2018-07-01] MEDS: ZINC SULFATE 220 MG CAP GTB SCH (08:53)
[2018-07-01] MEDS: METOPROLOL 50 MG TAB GTB SCH ×2 (08:53→20:24)
[2018-07-01] MEDS: AMIODARONE 200 MG TAB GTB SCH (08:54)
[2018-07-01] MEDS: BALSAM PERU/CASTOR OIL 60 GM TUBE TOP SCH ×2 (08:56→20:13)
[2018-07-01] MEDS: MULTIVITAMINS 30 ML CUP GTB SCH (08:57)
[2018-07-01] MEDS: NYSTATIN 30 GM POWDER BTL TOP SCH ×3 (09:00→20:13)
--- NOTE | 2018-07-01 09:38 | PN ---
DATE: 07/01/2018 SUBJECTIVE: The patient is stable, no events overnight. OBJECTIVE: VITAL SIGNS: Blood pressure is 119/60, pulse 78, temperature 98.5. HEENT: Head is normocephalic. NECK: Supple. HEART: Regular rate. LUNGS: Show diminished breath sounds at the base. ABDOMEN: Soft, nontender to palpation without rebound or guarding. EXTREMITIES: Negative for clubbing, cyanosis, no edema. DERMATOLOGIC: No rashes. MUSCULOSKELETAL: No joint effusion. NEUROLOGIC: No change in exam. MEDICATIONS: Reviewed. LABORATORY DATA: From 07/01/2018 was reviewed. ASSESSMENT AND PLAN: 1. Nonoliguric acute kidney injury on top of chronic kidney disease stage IIIB/IV with previous base line creatinine of 2.0 mg/dL. Etiology of acute kidney injury is secondary to acute tubular necrosis . The patient's renal function is stable. Continue current treatment plan, supportive care and dot lly dose all medications. 2. Volume overload. Continue Bumex. 3. Hypernatremia. We will decrease free water flushes. 4. Hypomagnesemia, replete with magnesium sulfate. 5. Anemia. Monitor hemoglobin and hematocrit levels. 6. Mineral bone disorder. Monitor calcium and phosphorus levels. 7. Ventilator-dependent respiratory failure. Vent settings have been reviewed. Continue to monitor and follow up with pulmonary. 8. Sepsis, status post shock. The patient is completing antibiotic course. 9. Clostridium difficile. Continue oral vancomycin. 10. Lower extremity wounds. Continue wound care. 11. Dysphagia. Continue tube feeding. 12. Encephalopathy. Continue to monitor. Dictated By: JEANA BANSAL DO NR/NTS Conf#: [id number] DID#: [id number] CC: QUINTEN UMAÑA MD; ROLAND GIRON MD;*EndCC*
--- NOTE | 2018-07-01 12:44 | CONS ---
Assessment/Plan Assessment/Plan Hospital Course (Demo Recall) Septic as well as hemorrhagic shock-resolved Acute respiratory failure status post intubation and repeat tracheostomy Acute blood loss anemia History of respiratory failure status post decannulation Preserved ejection fraction echocardiogram 05/10/2018 Paroxysmal atrial fibrillation Acute kidney injury History of hypertension-now labile BP -Patient with paroxysmal atrial fibrillation, has remained sinus -Continue beta-tin and titrate as tolerated -Amiodarone was decreased to daily -Vent management as per pulmonary -Fluid management and electrolytes as per renal -Antibiotics as per infectious disease -No anticoagulation given recurrent anemia requiring blood transfusions Consultation Date/Type/Reason Admit Date/Time May 06, 2018 at 17:38 Initial Consult Date 05/10/18 Type of Consult Cardiology Requesting Provider: ROLAND GIRON MD Date/Time of Note DATE: 07/01/18 TIME: 12:43 24 HR Interval Summary Free Text/Dictation Denies shortness of breath, palpitations Exam/Review of Systems Vital Signs Vitals Vital Signs Date Temp Pulse Resp B/P (MAP) Pulse Ox O2 O2 Flow FiO2 Time Delivery Rate 07/01/18 97.8 68 24 107/52 100 Mechanical 11:43 (70) Ventilator 07/01/18 30 11:40 Intake and Output 06/30/18 06/30/18 07/01/18 1414:59 22:59 06:59 IntakeIntake Total 1080 ml 1280 ml OutputOutput Total 750 ml 900 ml BalanceBalance 330 ml 380 ml Exam Constitutional: alert, oriented (Following commands, no apparent distress) Head: normocephalic Respiratory: other (Coarse breath sounds bilaterally, no wheezing) Cardiovascular: regular rate and rhythm (S1-S2 heard) Gastrointestinal: soft, non-tender, bowel sounds Extremities: edema Labs Result Diagram: 07/01/18 0601 07/01/18 0600 Results 24hrs Laboratory Tests Test 07/01/18 06:00 07/01/18 06:01 Sodium Level 132 L Potassium Level 4.4 Chloride Level 106 Carbon Dioxide Level 15 L Anion Gap 11 Blood Urea Nitrogen 70 H Creatinine 1.60 H Est Glomerular Filtrat Rate mL/min Glucose Level 86 Calcium Level 9.6 Phosphorus Level 4.5 Magnesium Level 1.6 L White Blood Count 7.7 Red Blood Count 2.37 L Hemoglobin 7.9 L Hematocrit 25.5 L Mean Corpuscular Volume 107.6 H Mean Corpuscular Hemoglobin 33.3 H Mean Corpuscular Hemoglobin Concent 31.0 L Red Cell Distribution Width 22.1 H Platelet Count 276 Mean Platelet Volume 9.8 Immature Granulocytes % 0.300 Neutrophils % 73.1 Lymphocytes % 11.0 L Monocytes % 8.8 Eosinophils % 6.3 Basophils % 0.5 Nucleated Red Blood Cells % 0.0 Immature Granulocytes # 0.020 Neutrophils # 5.7 Lymphocytes # 0.9 Monocytes # 0.7 Eosinophils # 0.5 Basophils # 0.0 Nucleated Red Blood Cells # 0.0 Medications Medications Current Medications IV Flush (NS 10 ml) 10 ml PRN IV ; Start 05/06/18 at 20:30 Ascorbic Acid (Vitamin C) 500 mg DAILY GTB Last administered on 07/01/18 08:52; Admin Dose 500 MG; Start 05/07/18 at 09:00 Albuterol/ Ipratropium (Duoneb) 3 ml Q2H RESP THERAPY PRN HHN SHORTNESS OF BREATH Last administered on 06/30/18 19:30; Admin Dose 3 ML; Start 05/06/18 at 23:30 Zinc Sulfate (Zinc Sulfate) 220 mg DAILY GTB Last administered on 07/01/18 08:53; Admin Dose 220 MG; Start 05/07/18 at 09:00 Ondansetron HCl (Zofran Tab) 4 mg Q6H PRN GTB NAUSEA AND/OR VOMITING Last administered on 05/31/18 16:47; Admin Dose 4 MG; Start 05/07/18 at 00:15 Multivitamins (Multivitamin) 30 ml DAILY GTB Last administered on 07/01/18 08:57; Admin Dose 30 ML; Start 05/07/18 at 09:00 Miscellaneous Information (Pending Santyl Order For Wound Care) This patient goldman... PRN PRN XX WOUND CARE; Start 05/09/18 at 17:00 Spironolactone (Aldactone) 50 mg DAILY GTB Last administered on 07/01/18 08:52; Admin Dose 50 MG; Start 05/21/18 at 09:00 Famotidine (Pepcid) 20 mg DAILY PEG Last administered on 07/01/18 08:53; Admin Dose 20 MG; Start 05/23/18 at 09:00 Morphine Sulfate (morphine) 6 mg Q4H PRN PEG SEVERE PAIN LEVEL 7-10 Last administered on 06/30/18 12:07; Admin Dose 6 MG; Start 05/22/18 at 17:00 Acetaminophen (Tylenol Tab) 650 mg Q4H PRN PO MILD PAIN(1-3)OR ELEVATED TEMP Last administered on 06/10/18 21:44; Admin Dose 650 MG; Start 05/31/18 at 13:00 Metoclopramide HCl (Reglan) 5 mg Q6 IV Last administered on 07/01/18 12:32; Admin Dose 5 MG; Start 05/31/18 at 13:00 Collagenase (Santyl) 1 applic DAILY TOP Last administered on 06/29/18 09:41; Admin Dose 1 APPLIC; Start 06/01/18 at 09:00 Clonidine (Catapres) 0.1 mg Q6H PRN PO ELEVATED BLOOD PRESSURE Last administered on 06/17/18 05:59; Admin Dose 0.1 MG; Start 06/03/18 at 03:30 Bumetanide (Bumex) 1 mg BID DIURETICS GTB Last administered on 07/01/18 05:50; Admin Dose 1 MG; Start 06/11/18 at 18:00 Collagenase (Santyl) 1 applic PRN PRN TOP WHEN SOILED; Start 06/13/18 at 01:00 Nystatin (Nystatin Powder) 1 applic BID TOP Last administered on 07/01/18 12:32; Admin Dose 1 APPLIC; Start 06/13/18 at 14:00 Vancomycin HCl (Vancomycin Oral Syringe) 250 mg Q48H GTB Last administered on 06/29/18 15:35; Admin Dose 250 MG; Start 06/29/18 at 14:00; Stop 07/06/18 at 13:59 Epoetin Zen-epbx (RETACRIT(esrd)) 20,000 unit Tu@1700 SC Last administered on 06/30/18 17:46; Admin Dose 20,000 UNIT; Start 06/16/18 at 18:30 Miscellaneous Information 1 ea NOTE XX ; Start 06/26/18 at 08:00 Dicyclomine HCl (Bentyl) 20 mg Q8 PO Last administered on 07/01/18 05:52; Admin Dose 20 MG; Start 06/27/18 at 22:00 Cholestyramine Resin (Questran Light) 4 gm 0600,1200,1800,2300 GTB Last administered on 07/01/18at 12:32; Admin Dose 4 GM; Start 06/27/18 at 18:00 Miscellaneous Information (*Order Clarification Bulletin) MEDICATION REQUIRES CLARIFICATI... Q8H XX ; Start 06/29/18 at 13:00 Metoprolol Tartrate (Lopressor) 50 mg BID GTB Last administered on 07/01/18at 08:53; Admin Dose 50 MG; Start 06/29/18 at 21:00 Miscellaneous Information (*Order Clarification Bulletin) MEDICATION REQUIRES CLARIFICATI... Q8H XX ; Start 06/30/18 at 13:30; Stop 07/02/18 at 13:29 Amiodarone HCl (Cordarone) 200 mg DAILY GTB Last administered on 07/01/18at 08:54; Admin Dose 200 MG; Start 07/01/18 at 09:00 Miscellaneous Information (*Order Clarification Bulletin) MEDICATION REQUIRES CLARIFICATION:WEST... Q8H XX ; Start 07/01/18 at 09:30 Evangelista Scanlon DO July 01, 2018 12:44
--- NOTE | 2018-07-01 13:48 | PN ---
Date/Time of Note Date/Time of Note DATE: 07/01/18 TIME: 13:46 Assessment/Plan VTE Prophylaxis Risk score (from [facility] [place])>0 risk: 12 SCD applied (from [facility] [place]): Yes Pharmacological prophylaxis: NA/contraindicated Pharm contraindication: other Lines/Catheters IV Catheter Type (from [facility]): PICC Line Central line still needed: Yes Urinary Cath still in place: Yes Reason Cath still needed: urinary retention Assessment/Plan Hospital Course Patient continues on vent without acute distress, stable vital signs, Mag replaced, SR on tele. Assessment/Plan -MDR Klebsiella urinary tract infection, completed treatment with amikacin. Dr. Doyle is following in infectious consultation. -Atrial fibrillation was rapid ventricular response, patient remains in sinus rhythm continue metoprolol and amiodarone. Dr. Scanlon is following in cardiology consultation. -S/p septic shock secondary to urinary tract infection, anterior neck soft tissue infection, and C. difficile colitis. -C-diff colitis, continue G-tube Vanco at the taper doses, -Acute respiratory failure requiring intubation and ventilatory support. Dr. Lambert is following in pulmonology consultation. -S/p tracheostomy on 05/29/18. -Acute kidney injury on chronic kidney disease. Started on HD this admission. Dr. Mckeon is following in nephrology consultation. -Anemia of chronic inflammation, stool for OB is negative, status post blood transfusion. Continue Epogen. -Metabolic acidosis, resolved. -Acute diastolic congestive heart failure. -Paroxysmal atrial fibrillation -COPD -Dysphagia with PEG. -G-tube mild malfunction, changed by GI Dr. Carolina is following in gastroenterology consultation. -Obesity Further recommendations based on clinical course. Plan of care discussed with Dr. Eisenberg. Result Diagram: 07/01/18 0601 07/01/18 0600 Results 24hrs Laboratory Tests Test 07/01/18 06:00 07/01/18 06:01 Sodium Level 132 L Potassium Level 4.4 Chloride Level 106 Carbon Dioxide Level 15 L Anion Gap 11 Blood Urea Nitrogen 70 H Creatinine 1.60 H Est Glomerular Filtrat Rate mL/min Glucose Level 86 Calcium Level 9.6 Phosphorus Level 4.5 Magnesium Level 1.6 L White Blood Count 7.7 Red Blood Count 2.37 L Hemoglobin 7.9 L Hematocrit 25.5 L Mean Corpuscular Volume 107.6 H Mean Corpuscular Hemoglobin 33.3 H Mean Corpuscular Hemoglobin Concent 31.0 L Red Cell Distribution Width 22.1 H Platelet Count 276 Mean Platelet Volume 9.8 Immature Granulocytes % 0.300 Neutrophils % 73.1 Lymphocytes % 11.0 L Monocytes % 8.8 Eosinophils % 6.3 Basophils % 0.5 Nucleated Red Blood Cells % 0.0 Immature Granulocytes # 0.020 Neutrophils # 5.7 Lymphocytes # 0.9 Monocytes # 0.7 Eosinophils # 0.5 Basophils # 0.0 Nucleated Red Blood Cells # 0.0 Exam/Review of Systems Exam Vitals Vital Signs Date Temp Pulse Resp B/P (MAP) Pulse Ox O2 O2 Flow FiO2 Time Delivery Rate 07/01/18 97.8 68 24 107/52 100 Mechanical 11:43 (70) Ventilator 07/01/18 30 11:40 Intake and Output 06/30/18 06/30/18 07/01/18 1515:00 23:00 07:00 IntakeIntake Total 1080 ml 1280 ml OutputOutput Total 750 ml 900 ml BalanceBalance 330 ml 380 ml Exam Constitutional: alert, oriented Neck: other (Tracheostomy) Respiratory: diminished breath sounds Cardiovascular: regular rate and rhythm Gastrointestinal: soft, non-tender, other (G-tube) Extremities: normal pulses Neurological: nl mental status Results Results 24hrs Laboratory Tests Test 07/01/18 06:00 07/01/18 06:01 Sodium Level 132 L Potassium Level 4.4 Chloride Level 106 Carbon Dioxide Level 15 L Anion Gap 11 Blood Urea Nitrogen 70 H Creatinine 1.60 H Est Glomerular Filtrat Rate mL/min Glucose Level 86 Calcium Level 9.6 Phosphorus Level 4.5 Magnesium Level 1.6 L White Blood Count 7.7 Red Blood Count 2.37 L Hemoglobin 7.9 L Hematocrit 25.5 L Mean Corpuscular Volume 107.6 H Mean Corpuscular Hemoglobin 33.3 H Mean Corpuscular Hemoglobin Concent 31.0 L Red Cell Distribution Width 22.1 H Platelet Count 276 Mean Platelet Volume 9.8 Immature Granulocytes % 0.300 Neutrophils % 73.1 Lymphocytes % 11.0 L Monocytes % 8.8 Eosinophils % 6.3 Basophils % 0.5 Nucleated Red Blood Cells % 0.0 Immature Granulocytes # 0.020 Neutrophils # 5.7 Lymphocytes # 0.9 Monocytes # 0.7 Eosinophils # 0.5 Basophils # 0.0 Nucleated Red Blood Cells # 0.0 Medications Medication Current Medications IV Flush (NS 10 ml) 10 ml PRN IV ; Start 05/06/18 at 20:30 Ascorbic Acid (Vitamin C) 500 mg DAILY GTB Last administered on 07/01/18 08:52; Admin Dose 500 MG; Start 05/07/18 at 09:00 Albuterol/ Ipratropium (Duoneb) 3 ml Q2H RESP THERAPY PRN HHN SHORTNESS OF BR EATH Last administered on 06/30/18 19:30; Admin Dose 3 ML; Start 05/06/18 at 23:30 Zinc Sulfate (Zinc Sulfate) 220 mg DAILY GTB Last administered on 07/01/18 08:53; Admin Dose 220 MG; Start 05/07/18 at 09:00 Ondansetron HCl (Zofran Tab) 4 mg Q6H PRN GTB NAUSEA AND/OR VOMITING Last administered on 05/31/18 16:47; Admin Dose 4 MG; Start 05/07/18 at 00:15 Multivitamins (Multivitamin) 30 ml DAILY GTB Last administered on 07/01/18 08:57; Admin Dose 30 ML; Start 05/07/18 at 09:00 Miscellaneous Information (Pending [facility] Order For Wound Care) This patient goldman... PRN PRN XX WOUND CARE; Start 05/09/18 at 17:00 Spironolactone (Aldactone) 50 mg DAILY GTB Last administered on 07/01/18 08:52; Admin Dose 50 MG; Start 05/21/18 at 09:00 Famotidine (Pepcid) 20 mg DAILY PEG Last administered on 07/01/18 08:53; Admin Dose 20 MG; Start 05/23/18 at 09:00 Morphine Sulfate (morphine) 6 mg Q4H PRN PEG SEVERE PAIN LEVEL 7-10 Last administered on 06/30/18 12:07; Admin Dose 6 MG; Start 05/22/18 at 17:00 Acetaminophen (Tylenol Tab) 650 mg Q4H PRN PO MILD PAIN(1-3)OR ELEVATED TEMP Last administered on 06/10/18 21:44; Admin Dose 650 MG; Start 05/31/18 at 13:00 Metoclopramide HCl (Reglan) 5 mg Q6 IV Last administered on 07/01/18 12:32; Admin Dose 5 MG; Start 05/31/18 at 13:00 Collagenase (Santyl) 1 applic DAILY TOP Last administered on 06/29/18 09:41; Admin Dose 1 APPLIC; Start 06/01/18 at 09:00 Clonidine (Catapres) 0.1 mg Q6H PRN PO ELEVATED BLOOD PRESSURE Last administered on 06/17/18 05:59; Admin Dose 0.1 MG; Start 06/03/18 at 03:30 Bumetanide (Bumex) 1 mg BID DIURETICS GTB Last administered on 07/01/18 05:50; Admin Dose 1 MG; Start 06/11/18 at 18:00 Collagenase (Santyl) 1 applic PRN PRN TOP WHEN SOILED; Start 06/13/18 at 01:00 Nystatin (Nystatin Powder) 1 applic BID TOP Last administered on 07/01/18 12:32; Admin Dose 1 APPLIC; Start 06/13/18 at 14:00 Vancomycin HCl (Vancomycin Oral Syringe) 250 mg Q48H GTB Last administered on 06/29/18 15:35; Admin Dose 250 MG; Start 06/29/18 at 14:00; Stop 07/06/18 at 13:59 Epoetin Zen-epbx (RETACRIT(esrd)) 20,000 unit Tu@1700 SC Last administered on 06/30/18 17:46; Admin Dose 20,000 UNIT; Start 06/16/18 at 18:30 Miscellaneous Information 1 ea NOTE XX ; Start 06/26/18 at 08:00 Dicyclomine HCl (Bentyl) 20 mg Q8 PO Last administered on 07/01/18 05:52; Admin Dose 20 MG; Start 06/27/18 at 22:00 Cholestyramine Resin (Questran Light) 4 gm 0600,1200,1800,2300 GTB Last administered on 07/01/18 12:32; Admin Dose 4 GM; Start 06/27/18 at 18:00 Miscellaneous Information (*Order Clarification Bulletin) MEDICATION REQUIRES CLARIFICATI... Q8H XX ; Start 06/29/18 at 13:00 Metoprolol Tartrate (Lopressor) 50 mg BID GTB Last administered on 5/15/19at 08:53; Admin Dose 50 MG; Start 06/29/18 at 21:00 Miscellaneous Information (*Order Clarification Bulletin) MEDICATION REQUIRES CLARIFICATI... Q8H XX ; Start 06/30/18 at 13:30; Stop 07/02/18 at 13:29 Amiodarone HCl (Cordarone) 200 mg DAILY GTB Last administered on 07/01/18at 08:54; Admin Dose 200 MG; Start 07/01/18 at 09:00 Miscellaneous Information (*Order Clarification Bulletin) MEDICATION REQUIRES CLARIFICATION:WEST... Q8H XX ; Start 07/01/18 at 09:30 GRISELDA DENNIS July 01, 2018 13:48
[2018-07-01] MEDS: LORAZEPAM 2 MG INJ IV PRN ×2 (14:07→20:13)
--- NOTE | 2018-07-01 16:42 | CONS ---
Assessment/Plan Assessment/Plan Hospital Course (Demo Recall) # sepsis, leukocytosis, SIRS, pulmonary, cardiac - recurrent leukocytosis due to recurrent UTI, improved - s/p septic shock due to pneumonia and C diff colitis - acute on chronic hypoxic respiratory failure, persistent - s/p reintubation 05/12/2018 - s/p re-do trach on 05/29/2018 - recurrent colonization of the anterior neck wound with ESBL+kleb, MRSA, GBS, corynebacteria on 05/06/2018, s/p meropenem - h/o pneumonia vs. colonization of the airway by pseudomonas and ESBL+klebsiella - h/o possible, recurrent HCAP due to pseudomonas and ESBL+klebsiella - h/o recurrent HCAP due to MRSA and Enterobacter (culture of tracheal aspirate on 07/16/2017 that was collected at [facility]) . Pt took vancomycin and ceftazidime - h/o decannulation prior to admission - h/o tracheostomy on 06/11/2017 - h/o SIRS from UGIB in 2018 - h/o thoracentesis on 07/18/2017, transudative (protein <2, LDH 279) - h/o bleeding from the trach site in 2018 - h/o septic shock due to pneumonia, ARDS, bacteremia, fungemia in 2018 - h/o ARDS in 2018 - h/o smoking - COPD - h/o ILD per medical record - h/o PAF, improved # GI - possible ileus or enterocolitis on CT abd/pel 06/15/2018 - C diff colitis, diagnosed on 05/11/2018. Pt's on pGT vancomycin induction followed by taper (05/11/2018-); Pt previously took IV metronidazole (05/11/2018- 05/29/2018; restart 05/30/2018-06/05/18) too - h/o intermittent diarrhea, Pt had multiple negative C. diff tests at [facility] at OSH in the past; none was positive until 05/11/2018 - dysphagia - h/o PEG placement 06/13/2018 - protein calorie malnutrition - h/o coffee ground emesis/UGIB on 12/23/2017 due to deep ulceration of distal esophagus and gastritis on EGD 12/26/2017. No e/o H. pylori - h/o possible appendicitis on CT on 11/22/2017, Pt took ertapenem (11/24/2017-12/01/2017) - h/o extensive adhesions lower abdominal and pelvis between small bowel to each other and to colon and to abdominal wall, anterior pelvic wall chronic abscess secondary to probably an old perforated diverticulitis, torsion of small bowel around these dense adhesion causing multiple obstructive points - h/o laparoscopic exploration and extensive lysis of adhesions and drainage of anterior pelvic wall abscess 09/16/2017. Cultures were negative, no e/o malignancy. 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 S/p renally dosed amikacin for klebsiella in her urine culture (06/17-06/22/2018) - UTI due to pseudomonas and ESBL+klebsiella on 06/09/2018, Pt took one dose of fosfomycin on 06/10/2018 and cipro 06/12-06/15/2018 - anasarca - started on HD on 05/15/2018, via Juan in R groin - recurrent NATHAN on CKD - 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 Her strain of CRE was sensitive to colistin, Avycaz, and Vabomere but resistant to Zerbaxa (reported on 05/19/2018) - metabolic acidosis - adrenal insufficiency - h/o vaginal bleed in 2018 - h/o colonization of urinary tract by ESBL+klebsiella, VRE - h/o recurrent, symptomatic UTI due to carbapenem-resistant kleb (MDR strain) per urine culture 10/04/17, 10/09/17, 10/21/2017, P took colistin (10/09/2017- 10/15/2017), fosfomycin for carbapenemase-producing klebsiella and VRE on 10/25/2017 and 10/28/2017 - h/o funguria - h/o urinary retention # fungemia, bacteremia 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; Pt declined surgery for MVR per outside medical records; TTE 07/01/17 did not mention any thrombus; s/p voriconazole (05/25/2017-08/01/2017) - h/o bacteremia due to MSSA and proteus s/p ceftriaxone; repeat blood cultures were negative on 06/14/2017 # musculoskeletal and dermatological - L hand pain - dry skin - chronic wound of LLE - h/o infection of wound of LLE - h/o debridement of wound of LLE on 08/06/2017 - h/o recurrent herpes labialis, Pt took acyclovir, valacyclovir - h/o Osler's nodes (eschar) of R toes with erythematous skin; desquamation of the skin and open lacerations on R plantar foot. improved. Probable manifestation of endocarditis. Pt declined MRI on 08/06/2017 - h/o infection of R toes due to pseudomonas. coagulase negative Staph likely a colonizer - h/o intertrigo of the groin, resolved with nystatin powder - h/o scabies, locally crusted lesion over L scapula, s/p permethrin cream and pGT ivermectin on 08/11/2017, 08/12/2017, 08/19/2017. Repeat skin scraping on 08/21/2017 was negative for scabies # psych, neuro - decreased hearing b/l - s/p acute toxic metabolic encephalopathy - h/o critical illness polyneuropathy - anxiety/depression, bipolar d/o, seen by Psychiatry in the past - chronic pain syndrome - h/o medical non-compliance: she would refuse her medications, treatment and straight catheterization in 2018 # hematological, vascular - chronic anemia requiring blood transfusion intermittently - macrocytic anemia - aneurysmal dilatation of the distal aorta visualized on CT 06/15/2018 - PVD Recommendations: - Monitor closely off systemic antibiotics. S/p renally dosed amikacin for klebsiella in her urine culture (06/17-06/22/2018) - Continue pGT vancomycin taper: 06/29-07/05/2018: q48hrs CASE WAS COORDINATED AND CARE DIRECTED YESTERDAY WITH JADE MÉNDEZ VIA [employer]ESSAG[employer]. Consultation Date/Type/Reason Admit Date/Time May 06, 2018 at 17:38 Initial Consult Date 05/10/18 Type of Consult ID Requesting Provider: ROLAND GIRON MD Date/Time of Note DATE: 07/01/18 TIME: 16:41 Exam/Review of Systems Exam Vitals Vital Signs Date Temp Pulse Resp B/P (MAP) Pulse Ox O2 O2 Flow FiO2 Time Delivery Rate 07/01/18 62 16:30 07/01/18 22 100 30 15:50 07/01/18 98.1 111/55 Mechanical 15:15 (73) Ventilator Intake and Output 06/30/18 06/30/18 07/01/18 1515:00 23:00 07:00 IntakeIntake Total 1080 ml 1280 ml OutputOutput Total 750 ml 900 ml BalanceBalance 330 ml 380 ml Exam sleeping peacefully Results Result Diagram: 07/01/18 0601 07/01/18 0600 Results 24hrs Laboratory Tests Test 07/01/18 06:00 07/01/18 06:01 Sodium Level 132 L Potassium Level 4.4 Chloride Level 106 Carbon Dioxide Level 15 L Anion Gap 11 Blood Urea Nitrogen 70 H Creatinine 1.60 H Est Glomerular Filtrat Rate mL/min Glucose Level 86 Calcium Level 9.6 Phosphorus Level 4.5 Magnesium Level 1.6 L White Blood Count 7.7 Red Blood Count 2.37 L Hemoglobin 7.9 L Hematocrit 25.5 L Mean Corpuscular Volume 107.6 H Mean Corpuscular Hemoglobin 33.3 H Mean Corpuscular Hemoglobin Concent 31.0 L Red Cell Distribution Width 22.1 H Platelet Count 276 Mean Platelet Volume 9.8 Immature Granulocytes % 0.300 Neutrophils % 73.1 Lymphocytes % 11.0 L Monocytes % 8.8 Eosinophils % 6.3 Basophils % 0.5 Nucleated Red Blood Cells % 0.0 Immature Granulocytes # 0.020 Neutrophils # 5.7 Lymphocytes # 0.9 Monocytes # 0.7 Eosinophils # 0.5 Basophils # 0.0 Nucleated Red Blood Cells # 0.0 Medications Medication Current Medications IV Flush (NS 10 ml) 10 ml PRN IV ; Start 05/06/18 at 20:30 Ascorbic Acid (Vitamin C) 500 mg DAILY GTB Last administered on 07/01/18 08:52; Admin Dose 500 MG; Start 05/07/18 at 09:00 Albuterol/ Ipratropium (Duoneb) 3 ml Q2H RESP THERAPY PRN HHN SHORTNESS OF BREATH Last administered on 06/30/18 19:30; Admin Dose 3 ML; Start 05/06/18 at 23:30 Zinc Sulfate (Zinc Sulfate) 220 mg DAILY GTB Last administered on 07/01/18 08:53; Admin Dose 220 MG; Start 05/07/18 at 09:00 Ondansetron HCl (Zofran Tab) 4 mg Q6H PRN GTB NAUSEA AND/OR VOMITING Last administered on 05/31/18 16:47; Admin Dose 4 MG; Start 05/07/18 at 00:15 Multivitamins (Multivitamin) 30 ml DAILY GTB Last administered on 07/01/18 08:57; Admin Dose 30 ML; Start 05/07/18 at 09:00 [facility]isc[facility] This patient goldman... PRN PRN XX WOUND CARE; Start 05/09/18 at 17:00 Spironolactone (Aldactone) 50 mg DAILY GTB Last administered on 07/01/18 08:52; Admin Dose 50 MG; Start 05/21/18 at 09:00 Famotidine (Pepcid) 20 mg DAILY PEG Last administered on 07/01/18 08:53; Admin Dose 20 MG; Start 05/23/18 at 09:00 Morphine Sulfate (morphine) 6 mg Q4H PRN PEG SEVERE PAIN LEVEL 7-10 Last administered on 06/30/18 12:07; Admin Dose 6 MG; Start 05/22/18 at 17:00 Acetaminophen (Tylenol Tab) 650 mg Q4H PRN PO MILD PAIN(1-3)OR ELEVATED TEMP Last administered on 06/10/18 21:44; Admin Dose 650 MG; Start 05/31/18 at 13:00 Metoclopramide HCl (Reglan) 5 mg Q6 IV Last administered on 07/01/18 12:32; Admin Dose 5 MG; Start 05/31/18 at 13:00 Collagenase (Santyl) 1 applic DAILY TOP Last administered on 06/29/18 09:41; Admin Dose 1 APPLIC; Start 06/01/18 at 09:00 Clonidine (Catapres) 0.1 mg Q6H PRN PO ELEVATED BLOOD PRESSURE Last administered on 06/17/18 05:59; Admin Dose 0.1 MG; Start 06/03/18 at 03:30 Bumetanide (Bumex) 1 mg BID DIURETICS GTB Last administered on 07/01/18 05: 50; Admin Dose 1 MG; Start 06/11/18 at 18:00 Collagenase (Santyl) 1 applic PRN PRN TOP WHEN SOILED; Start 06/13/18 at 01:00 Nystatin (Nystatin Powder) 1 applic BID TOP Last administered on 07/01/18 12:32; Admin Dose 1 APPLIC; Start 06/13/18 at 14:00 Vancomycin HCl (Vancomycin Oral Syringe) 250 mg Q48H GTB Last administered on 06/29/18 15:35; Admin Dose 250 MG; Start 06/29/18 at 14:00; Stop 07/06/18 at 13:59 Epoetin Zen-epbx (RETACRIT(esrd)) 20,000 unit Tu@1700 SC Last administered on 06/30/18 17:46; Admin Dose 20,000 UNIT; Start 06/16/18 at 18:30 Miscellaneous Information 1 ea NOTE XX ; Start 06/26/18 at 08:00 Dicyclomine HCl (Bentyl) 20 mg Q8 PO Last administered on 07/01/18 14:06; Admin Dose 20 MG; Start 06/27/18 at 22:00 Cholestyramine Resin (Questran Light) 4 gm 0600,1200,1800,2300 GTB Last administered on 07/01/18 12:32; Admin Dose 4 GM; Start 06/27/18 at 18:00 Miscellaneous Information (*Order Clarification Bulletin) MEDICATION REQUIRES CLARIFICATI... Q8H XX ; Start 06/29/18 at 13:00 Metoprolol Tartrate (Lopressor) 50 mg BID GTB Last administered on 5/15/19at 08 :53; Admin Dose 50 MG; Start 06/29/18 at 21:00 Miscellaneous Information (*Order Clarification Bulletin) MEDICATION REQUIRES CLARIFICATI... Q8H XX ; Start 06/30/18 at 13:30; Stop 07/02/18 at 13:29 Amiodarone HCl (Cordarone) 200 mg DAILY GTB Last administered on 07/01/18at 08:54; Admin Dose 200 MG; Start 07/01/18 at 09:00 Miscellaneous Information (*Order Clarification Bulletin) MEDICATION REQUIRES CLARIFICATION:WEST... Q8H XX ; Start 07/01/18 at 09:30 Lorazepam (Ativan) 0.5 mg Q4 PRN IV ANXIETY Last administered on 07/01/18at 14:07; Admin Dose 0.5 MG; Start 07/01/18 at 14:00 MANN VALDEZ MD July 01, 2018 16:42
--- NOTE | 2018-07-01 17:33 | CONS ---
Assessment/Plan Assessment/Plan Assessment/Plan (Daily) Assessment/Plan Hospital Course (Demo Recall) 73 yo female 1. ABD pain -CT of abd 2. Renal failure.- on HD 3. Vent dependent resp failure 4. Chronic obstructive pulmonary disease. 5. Bipolar. 6. Paroxysmal atrial fibrillation. 7. Anemia of chronic disease. 8. CHF 9. Diarrhea 11. Diarrhea -s/p c diff colitis -taper off of vanco -resolved 12. H/O deep esophageal ulcer 13. Dysphagia with g tube 14. Anemia of chronic disease 15. UTI with positive cx CT of abd/pelvis 06/16 1. Nonspecific bibasilar ground-glass densities and the airspace disease, suggesting bilateral pneumonia versus pulmonary edema. 2. Atrophy of the left kidney. 2.3 cm left renal cyst. The right kidney demonstrates compensatory hypertrophy. No calculus or hydronephrosis in either kidney. 3. Atherosclerosis of the aorta. 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 No leak or rupture. 4. Mild nonspecific ascites in the pelvis. 5. Air-fluid levels are seen throughout the small bowel and colon. Consider mild ileus versus enterocolitis. PLAN: Continue with reglan and pepcid and bentyl Monitor tube feeds residuals q 6 hour Consultation Date/Type/Reason Admit Date/Time May 06, 2018 at 17:38 Initial Consult Date 05/10/18 Requesting Provider: ROLAND GIRON MD Date/Time of Note DATE: 07/01/18 TIME: 17:32 24 HR Interval Summary Free Text/Dictation Abdominal pain Constitutional: improved Exam/Review of Systems Exam Vitals Vital Signs Date Temp Pulse Resp B/P (MAP) Pulse Ox O2 O2 Flow FiO2 Time Delivery Rate 07/01/18 62 16:30 07/01/18 22 100 30 15:50 07/01/18 98.1 111/55 Mechanical 15:15 (73) Ventilator Intake and Output 06/30/18 06/30/18 07/01/18 1515:00 23:00 07:00 IntakeIntake Total 1080 ml 1280 ml OutputOutput Total 750 ml 900 ml BalanceBalance 330 ml 380 ml ENMT: intubated Cardiovascular: regular rate and rhythm, nl pulses Gastrointestinal: nl liver, spleen Extremities: normal pulses Neurological: MEASUREMENT PSYCHOLOGIST II-XII intact, nl mental status, nl speech, nl strength Results Result Diagram: 5/15/19 0601 07/01/18 0600 Results 24hrs Laboratory Tests Test 07/01/18 06:00 07/01/18 06:01 Sodium Level 132 L Potassium Level 4.4 Chloride Level 106 Carbon Dioxide Level 15 L Anion Gap 11 Blood Urea Nitrogen 70 H Creatinine 1.60 H Est Glomerular Filtrat Rate mL/min Glucose Level 86 Calcium Level 9.6 Phosphorus Level 4.5 Magnesium Level 1.6 L White Blood Count 7.7 Red Blood Count 2.37 L Hemoglobin 7.9 L Hematocrit 25.5 L Mean Corpuscular Volume 107.6 H Mean Corpuscular Hemoglobin 33.3 H Mean Corpuscular Hemoglobin Concent 31.0 L Red Cell Distribution Width 22.1 H Platelet Count 276 Mean Platelet Volume 9.8 Immature Granulocytes % 0.300 Neutrophils % 73.1 Lymphocytes % 11.0 L Monocytes % 8.8 Eosinophils % 6.3 Basophils % 0.5 Nucleated Red Blood Cells % 0.0 Immature Granulocytes # 0.020 Neutrophils # 5.7 Lymphocytes # 0.9 Monocytes # 0.7 Eosinophils # 0.5 Basophils # 0.0 Nucleated Red Blood Cells # 0.0 Medications Medication Current Medications IV Flush (NS 10 ml) 10 ml PRN IV ; Start 05/06/18 at 20:30 Ascorbic Acid (Vitamin C) 500 mg DAILY GTB Last administered on 07/01/18 08:52; Admin Dose 500 MG; Start 05/07/18 at 09:00 Albuterol/ Ipratropium (Duoneb) 3 ml Q2H RESP THERAPY PRN HHN SHORTNESS OF BREATH Last administered on 06/30/18 19:30; Admin Dose 3 ML; Start 05/06/18 at 23:30 Zinc Sulfate (Zinc Sulfate) 220 mg DAILY GTB Last administered on 07/01/18 08:53; Admin Dose 220 MG; Start 05/07/18 at 09:00 Ondansetron HCl (Zofran Tab) 4 mg Q6H PRN GTB NAUSEA AND/OR VOMITING Last administered on 05/31/18 16:47; Admin Dose 4 MG; Start 05/07/18 at 00:15 Multivitamins (Multivitamin) 30 ml DAILY GTB Last administered on 07/01/18 08:57; Admin Dose 30 ML; Start 05/07/18 at 09:00 Miscellaneous Information (Pending Santyl Order For Wound Care) This patient goldman. .. PRN PRN XX WOUND CARE; Start 05/09/18 at 17:00 Spironolactone (Aldactone) 50 mg DAILY GTB Last administered on 07/01/18 08:52; Admin Dose 50 MG; Start 05/21/18 at 09:00 Famotidine (Pepcid) 20 mg DAILY PEG Last administered on 07/01/18 08:53; Admin Dose 20 MG; Start 05/23/18 at 09:00 Morphine Sulfate (morphine) 6 mg Q4H PRN PEG SEVERE PAIN LEVEL 7-10 Last administered on 06/30/18 12:07; Admin Dose 6 MG; Start 05/22/18 at 17:00 Acetaminophen (Tylenol Tab) 650 mg Q4H PRN PO MILD PAIN(1-3)OR ELEVATED TEMP Last administered on 06/10/18 21:44; Admin Dose 650 MG; Start 05/31/18 at 13:00 Metoclopramide HCl (Reglan) 5 mg Q6 IV Last administered on 07/01/18 12:32; Admin Dose 5 MG; Start 05/31/18 at 13:00 Collagenase (Santyl) 1 applic DAILY TOP Last administered on 06/29/18 09:41; Admin Dose 1 APPLIC; Start 06/01/18 at 09:00 Clonidine (Catapres) 0.1 mg Q6H PRN PO ELEVATED BLOOD PRESSURE Last administered on 06/17/18 05:59; Admin Dose 0.1 MG; Start 06/03/18 at 03:30 Bumetanide (Bumex) 1 mg BID DIURETICS GTB Last administered on 07/01/18 05:50; Admin Dose 1 MG; Start 06/11/18 at 18:00 Collagenase (Santyl) 1 applic PRN PRN TOP WHEN SOILED; Start 06/13/18 at 01:00 Nystatin (Nystatin Powder) 1 applic BID TOP Last administered on 07/01/18 12:32; Admin Dose 1 APPLIC; Start 06/13/18 at 14:00 Vancomycin HCl (Vancomycin Oral Syringe) 250 mg Q48H GTB Last administered on 06/29/18 15:35; Admin Dose 250 MG; Start 06/29/18 at 14:00; Stop 07/06/18 at 13:59 Epoetin Zen-epbx (RETACRIT(esrd)) 20,000 unit Tu@1700 SC Last administered on 06/30/18at 17:46; Admin Dose 20,000 UNIT; Start 06/16/18 at 18:30 Miscellaneous Information 1 ea NOTE XX ; Start 06/26/18 at 08:00 Dicyclomine HCl (Bentyl) 20 mg Q8 PO Last administered on 07/01/18at 14:06; Admin Dose 20 MG; Start 06/27/18 at 22:00 Cholestyramine Resin (Questran Light) 4 gm 0600,1200,1800,2300 GTB Last administered on 07/01/18at 12:32; Admin Dose 4 GM; Start 06/27/18 at 18:00 Miscellaneous Information (*Order Clarification Bulletin) MEDICATION REQUIRES CLARIFICATI... Q8H XX ; Start 06/29/18 at 13:00 Metoprolol Tartrate (Lopressor) 50 mg BID GTB Last administered on 07/01/18at 08:53; Admin Dose 50 MG; Start 06/29/18 at 21:00 Miscellaneous Information (*Order Clarification Bulletin) MEDICATION REQUIRES CLARIFICATI... Q8H XX ; Start 06/30/18 at 13:30; Stop 07/02/18 at 13:29 Amiodarone HCl (Cordarone) 200 mg DAILY GTB Last administered on 07/01/18at 08:54; Admin Dose 200 MG; Start 07/01/18 at 09:00 Miscellaneous Information (*Order Clarification Bulletin) MEDICATION REQUIRES CLARIFICATION:WEST... Q8H XX ; Start 07/01/18 at 09:30 Lorazepam (Ativan) 0.5 mg Q4 PRN IV ANXIETY Last administered on 07/01/18at 14 :07; Admin Dose 0.5 MG; Start 07/01/18 at 14:00 QUINTEN UMAÑA MD July 01, 2018 17:33
[2018-07-01] MEDS: VANCOMYCIN HCL 250 MG/5ML POSYG GTB SCH (17:38)
[2018-07-02] VITALS (21 sets, daily range): BP systolic 101–135; BP diastolic 52–82; PULSE 62–72; RESP 14–26
[2018-07-02] MEDS: BUMETANIDE 1 MG TAB GTB SCH ×2 (05:35→17:31)
[2018-07-02] MEDS: METOCLOPRAMIDE 10 MG INJ IV SCH ×4 (05:35→23:55)
[2018-07-02] MEDS: CHOLESTYRAMINE (LIGHT) 4 GM PACKET GTB SCH ×4 (05:35→22:06)
[2018-07-02] MEDS: DICYCLOMINE 10 MG CAP PO SCH ×3 (05:36→21:54)
[2018-07-02] MEDS: LORAZEPAM 2 MG INJ IV PRN ×4 (06:04→21:55)
[2018-07-02] MEDS ORDERED: ALTEPLASE (CATHFLO) 2 MG INJ CATHETER ONE ×2 (08:00)
[2018-07-02] MEDS: FAMOTIDINE 20 MG TAB PEG SCH (08:21)
[2018-07-02] MEDS: ASCORBIC ACID 500 MG TAB GTB SCH (08:21)
[2018-07-02] MEDS: ZINC SULFATE 220 MG CAP GTB SCH (08:22)
[2018-07-02] MEDS: AMIODARONE 200 MG TAB GTB SCH (08:22)
[2018-07-02] MEDS: SPIRONOLACTONE 25 MG TAB GTB SCH (08:22)
[2018-07-02] MEDS: COLLAGENASE 5 GM (UD JAR) TOP SCH (08:23)
[2018-07-02] MEDS: MULTIVITAMINS 30 ML CUP GTB SCH (08:23)
[2018-07-02] MEDS: NYSTATIN 30 GM POWDER BTL TOP SCH ×2 (08:23→21:55)
[2018-07-02] MEDS: BALSAM PERU/CASTOR OIL 60 GM TUBE TOP SCH ×2 (08:23→21:55)
[2018-07-02] MEDS: METOPROLOL 50 MG TAB GTB SCH ×2 (08:24→21:55)
--- NOTE | 2018-07-02 08:47 | PN ---
DATE: 07/02/2018 SUBJECTIVE: The patient is stable, no events overnight. OBJECTIVE: VITAL SIGNS: Blood pressure is 110/54, pulse 64, respirations 22, temperature 98.0. HEENT: Head is normocephalic. NECK: Supple. HEART: Regular rate. LUNGS: Show diminished breath sounds at the base. ABDOMEN: Soft, nontender to palpation without rebound or guarding. EXTREMITIES: Negative for clubbing, cyanosis. Trace edema. DERMATOLOGIC: No rashes. MUSCULOSKELETAL: No joint effusion. NEUROLOGIC: No change in exam. MEDICATIONS: Reviewed. LABORATORY DATA: Reviewed. IMAGING STUDIES: Reviewed. ASSESSMENT AND PLAN: 1. Nonoliguric acute kidney injury on top of chronic kidney disease stage IIIB/IV with previous base line creatinine of 2.0 mg/dL. Etiology of acute kidney injury is secondary to acute tubular necrosis . Renal function stabilized. Continue current treatment plan. 2. Volume overload, stable, improving. Continue Bumex. 3. Hyponatremia. The patient's free water flushes were decreased. Follow up renal panel. 4. Hypomagnesemia. Continue to monitor and replete as needed. 5. Anemia. Monitor hemoglobin and hematocrit levels. 6. Mineral bone disorder, monitor calcium and phosphorus levels. 7. Ventilator-dependent respiratory failure. Vent settings have been reviewed. Continue to monitor . Follow up with pulmonary. 8. Sepsis, status post shock. The patient is completing antibiotic course. 9. Clostridium difficile. Continue oral vancomycin. 10. Lower extremity wounds. Continue wound care. 11. Dysphagia. Continue tube feeding. 12. Encephalopathy. Continue to monitor. Dictated By: JEANA BANSAL DO NR/NTS Conf#: [id number] DID#: [id number] CC: ROLAND GIRON MD; QUINTEN UMAÑA MD;*EndCC*
--- NOTE | 2018-07-02 13:10 | PN ---
Date/Time of Note Date/Time of Note DATE: 07/02/18 TIME: 13:08 Assessment/Plan VTE Prophylaxis Risk score (from [place])>0 risk: 10 SCD applied (from [place]): Yes Pharmacological prophylaxis: NA/contraindicated Pharm contraindication: anticoag not tolerated Lines/Catheters IV C[facility]ter Type [facility] PICC Line Central line still needed: Yes Urinary Cath still in place: Yes Reason Cath still needed: urinary retention Assessment/Plan Hospital Course Patient is lethargic but easily arousable, continues on ventilatory support without distress, remains afebrile, pending placement. No bed is available today per case management meeting in the morning. Assessment/Plan -MDR Klebsiella urinary tract infection, completed treatment with amikacin. Dr. Doyle is following in infectious consultation. -Atrial fibrillation was rapid ventricular response, patient remains in sinus rhythm continue metoprolol and amiodarone. Dr. Scanlon is following in cardiology consultation. -S/p septic shock secondary to urinary tract infection, anterior neck soft tissue infection, and C. difficile colitis. -C-diff colitis, continue G-tube Vanco at the taper doses, -Acute respiratory failure requiring intubation and ventilatory support. Dr. Lambert is following in pulmonology consultation. -S/p tracheostomy on 05/29/18. -Acute kidney injury on chronic kidney disease. Started on HD this admission. Dr. Mckeon is following in nephrology consultation. -Anemia of chronic inflammation, stool for OB is negative, status post blood transfusion. Continue Epogen. -Metabolic acidosis, resolved. -Acute diastolic congestive heart failure. -Paroxysmal atrial fibrillation -COPD -Dysphagia with PEG. -G-tube mild malfunction, changed by GI Dr. Carolina is following in gastroenterology consultation. -Obesity Further recommendations based on clinical course. Plan of care discussed with Dr. Eisenberg. Result Diagram: 07/01/18 0601 07/02/18 0650 Results 24hrs Laboratory Tests Test 07/02/18 06:50 Sodium Level 133 L Potassium Level 4.0 Chloride Level 107 Carbon Dioxide Level 15 L Anion Gap 11 Blood Urea Nitrogen 71 H Creatinine 1.65 H Est Glomerular Filtrat Rate mL/min Glucose Level 94 Calcium Level 9.5 Phosphorus Level 4.1 Magnesium Level 2.1 Exam/Review of Systems Exam Vitals Vital Signs Date Temp Pulse Resp B/P (MAP) Pulse Ox O2 O2 Flow FiO2 Time Delivery Rate 07/02/18 62 12:30 07/02/18 97.9 22 109/59 100 Mechanical 12:25 (76) Ventilator Trach Collar 07/02/18 30 11:30 Intake and Output 07/01/18 07/01/18 07/02/18 1515:00 23:00 07:00 IntakeIntake Total 50 ml 380 ml 980 ml OutputOutput Total 600 ml 800 ml BalanceBalance 50 ml -220 ml 180 ml Exam Constitutional: alert, oriented Neck: other (Tracheostomy) Respiratory: diminished breath sounds Cardiovascular: regular rate and rhythm Gastrointestinal: soft, non-tender, other (G-tube) Extremities: normal pulses Neurological: nl mental status Results Results 24hrs Laboratory Tests Test 07/02/18 06:50 Sodium Level 133 L Potassium Level 4.0 Chloride Level 107 Carbon Dioxide Level 15 L Anion Gap 11 Blood Urea Nitrogen 71 H Creatinine 1.65 H Est Glomerular Filtrat Rate mL/min Glucose Level 94 Calcium Level 9.5 Phosphorus Level 4.1 Magnesium Level 2.1 Medications Medication Current Medications IV Flush (NS 10 ml) 10 ml PRN IV ; Start 05/06/18 at 20:30 Ascorbic Acid (Vitamin C) 500 mg DAILY GTB Last administered on 07/02/18 08:21; Admin Dose 500 MG; Start 05/07/18 at 09:00 Albuterol/ Ipratropium (Duoneb) 3 ml Q2H RESP THERAPY PRN HHN SHORTNESS OF BREATH Last administered on 06/30/18 19:30; Admin Dose 3 ML; Start 05/06/18 at 23:30 Zinc Sulfate (Zinc Sulfate) 220 mg DAILY GTB Last administered on 07/02/18 08:22; Admin Dose 220 MG; Start 05/07/18 at 09:00 Ondansetron HCl (Zofran Tab) 4 mg Q6H PRN GTB NAUSEA AND/OR VOMITING Last administered on 05/31/18 16:47; Admin Dose 4 MG; Start 05/07/18 at 00:15 Multivitamins (Multivitamin) 30 ml DAILY GTB Last administered on 07/02/18 08:23; Admin Dose 30 ML; Start 05/07/18 at 09:00 Miscellaneous Information (Pending Santyl Order For Wound Care) This patient goldman... PRN PRN XX WOUND CARE; Start 05/09/18 at 17:00 Spironolactone (Aldactone) 50 mg DAILY GTB Last administered on 07/02/18 08:22; Admin Dose 50 MG; Start 05/21/18 at 09:00 Famotidine (Pepcid) 20 mg DAILY PEG Last administered on 07/02/18 08:21; Admin Dose 20 MG; Start 05/23/18 at 09:00 Morphine Sulfate (morphine) 6 mg Q4H PRN PEG SEVERE PAIN LEVEL 7-10 Last administered on 06/30/18 12:07; Admin Dose 6 MG; Start 05/22/18 at 17:00 Acetaminophen (Tylenol Tab) 650 mg Q4H PRN PO MILD PAIN(1-3)OR ELEVATED TEMP Last administered on 06/10/18 21:44; Admin Dose 650 MG; Start 05/31/18 at 13:00 Metoclopramide HCl (Reglan) 5 mg Q6 IV Last administered on 07/02/18 05:35; Admin Dose 5 MG; Start 05/31/18 at 13:00 Collagenase (Santyl) 1 applic DAILY TOP Last administered on 07/02/18 08:23; Admin Dose 1 APPLIC; Start 06/01/18 at 09:00 Clonidine (Catapres) 0.1 mg Q6H PRN PO ELEVATED BLOOD PRESSURE Last administered on 06/17/18 05:59; Admin Dose 0.1 MG; Start 06/03/18 at 03:30 Bumetanide (Bumex) 1 mg BID DIURETICS GTB Last administered on 07/02/18 05:35; Admin Dose 1 MG; Start 06/11/18 at 18:00 Collagenase (Santyl) 1 applic PRN PRN TOP WHEN SOILED; Start 06/13/18 at 01:00 Nystatin (Nystatin Powder) 1 applic BID TOP Last administered on 07/02/18 08:23; Admin Dose 1 APPLIC; Start 06/13/18 at 14:00 Vancomycin HCl (Vancomycin Oral Syringe) 250 mg Q48H GTB Last administered on 07/01/18 17:38; Admin Dose 250 MG; Start 06/29/18 at 14:00; Stop 07/06/18 at 13:59 Epoetin Zen-epbx (RETACRIT(esrd)) 20,000 unit Tu@1700 SC Last administered on 06/30/18 17:46; Admin Dose 20,000 UNIT; Start 06/16/18 at 18:30 Miscellaneous Information 1 ea NOTE XX ; Start 06/26/18 at 08:00 Dicyclomine HCl (Bentyl) 20 mg Q8 PO Last administered on 07/02/18 05:36; Admin Dose 20 MG; Start 06/27/18 at 22:00 Cholestyramine Resin (Questran Light) 4 gm 0600,1200,1800,2300 GTB Last administered on 07/02/18 05:35; Admin Dose 4 GM; Start 06/27/18 at 18:00 Miscellaneous Information (*Order Clarification Bulletin) MEDICATION REQUIRES CLARIFICATI... Q8H XX Last administered on 07/02/18 13:03; Admin Dose 1 EA; Start 06/29/18 at 13:00 Metoprolol Tartrate (Lopressor) 50 mg BID GTB Last administered on 07/02/18 08:24; Admin Dose 50 MG; Start 06/29/18 at 21:00 Miscellaneous Information (*Order Clarification Bulletin) MEDICATION REQUIRES CLARIFICATI... Q8H XX ; Start 06/30/18 at 13:30; Stop 07/02/18 at 13:29 Amiodarone HCl (Cordarone) 200 mg DAILY GTB Last administered on 07/02/18 08:22; Admin Dose 200 MG; Start 07/01/18 at 09:00 Miscellaneous Information (*Order Clarification Bulletin) MEDICATION REQUIRES CLARIFICATION:WEST... Q8H XX Last administered on 07/02/18 08:21; Admin Dose 1 EA; Start 07/01/18 at 09:30 Lorazepam (Ativan) 0.5 mg Q4 PRN IV ANXIETY Last administered on 07/02/18 10:52; Admin Dose 0.5 MG; Start 07/01/18 at 14:00 GRISELDA DENNIS July 02, 2018 13:10
--- NOTE | 2018-07-02 15:52 | CONS ---
Assessment/Plan Assessment/Plan Hospital Course (Demo Recall) Septic as well as hemorrhagic shock-resolved Acute respiratory failure status post intubation and repeat tracheostomy Acute blood loss anemia History of respiratory failure status post decannulation Preserved ejection fraction echocardiogram 05/10/2018 Paroxysmal atrial fibrillation Acute kidney injury History of hypertension-now labile BP -Patient with paroxysmal atrial fibrillation, has remained sinus -Continue beta-tin and amiodarone and titrate as tolerated -Vent management as per pulmonary -Fluid management and electrolytes as per renal -Antibiotics as per infectious disease -No anticoagulation given recurrent anemia requiring blood transfusions Consultation Date/Type/Reason Admit Date/Time May 06, 2018 at 17:38 Initial Consult Date 05/10/18 Type of Consult Cardiology Requesting Provider: ROLAND GIRON MD Date/Time of Note DATE: 07/02/18 TIME: 15:51 24 HR Interval Summary Free Text/Dictation Patient seen and examined. Is telling me "do not touch me, leave me alone" Exam/Review of Systems Vital Signs Vitals Vital Signs Date Temp Pulse Resp B/P (MAP) Pulse Ox O2 O2 Flow FiO2 Time Delivery Rate 07/02/18 67 22 100 30 13:10 07/02/18 97.9 109/59 Mechanical 12:25 (76) Ventilator Trach Collar Intake and Output 07/01/18 07/01/18 07/02/18 1515:00 23:00 07:00 IntakeIntake Total 50 ml 380 ml 980 ml OutputOutput Total 600 ml 800 ml BalanceBalance 50 ml -220 ml 180 ml Exam Constitutional: alert (Pushes me away times during exam) Head: normocephalic Respiratory: other (Coarse breath sounds bilaterally, no wheezing) Cardiovascular: regular rate and rhythm (S1-S2 heard) Gastrointestinal: soft, non-tender, bowel sounds Extremities: edema Labs Result Diagram: 07/01/18 0601 07/02/18 0650 Results 24hrs Laboratory Tests Test 07/02/18 06:50 Sodium Level 133 L Potassium Level 4.0 Chloride Level 107 Carbon Dioxide Level 15 L Anion Gap 11 Blood Urea Nitrogen 71 H Creatinine 1.65 H Est Glomerular Filtrat Rate mL/min Glucose Level 94 Calcium Level 9.5 Phosphorus Level 4.1 Magnesium Level 2.1 Medications Medications Current Medications IV Flush (NS 10 ml) 10 ml PRN IV ; Start 05/06/18 at 20:30 Ascorbic Acid (Vitamin C) 500 mg DAILY GTB Last administered on 07/02/18 08:21; Admin Dose 500 MG; Start 05/07/18 at 09:00 Albuterol/ Ipratropium (Duoneb) 3 ml Q2H RESP THERAPY PRN HHN SHORTNESS OF BREATH Last administered on 06/30/18 19:30; Admin Dose 3 ML; Start 05/06/18 at 23:30 Zinc Sulfate (Zinc Sulfate) 220 mg DAILY GTB Last administered on 07/02/18 08:22; Admin Dose 220 MG; Start 05/07/18 at 09:00 Ondansetron HCl (Zofran Tab) 4 mg Q6H PRN GTB NAUSEA AND/OR VOMITING Last administered on 05/31/18 16:47; Admin Dose 4 MG; Start 05/07/18 at 00:15 Multivitamins (Multivitamin) 30 ml DAILY GTB Last administered on 07/02/18 08:23; Admin Dose 30 ML; Start 05/07/18 at 09:00 Miscellaneous Information (Pending Santyl Order For Wound Care) This patient goldman... PRN PRN XX WOUND CARE; Start 05/09/18 at 17:00 Spironolactone (Aldactone) 50 mg DAILY GTB Last administered on 07/02/18 08:22 ; Admin Dose 50 MG; Start 05/21/18 at 09:00 Famotidine (Pepcid) 20 mg DAILY PEG Last administered on 07/02/18 08:21; Admin Dose 20 MG; Start 05/23/18 at 09:00 Morphine Sulfate (morphine) 6 mg Q4H PRN PEG SEVERE PAIN LEVEL 7-10 Last administered on 06/30/18 12:07; Admin Dose 6 MG; Start 05/22/18 at 17:00 Acetaminophen (Tylenol Tab) 650 mg Q4H PRN PO MILD PAIN(1-3)OR ELEVATED TEMP Last administered on 06/10/18 21:44; Admin Dose 650 MG; Start 05/31/18 at 13:00 Metoclopramide HCl (Reglan) 5 mg Q6 IV Last administered on 07/02/18 13:13; Admin Dose 5 MG; Start 05/31/18 at 13:00 Collagenase (Santyl) 1 applic DAILY TOP Last administered on 07/02/18 08:23; Admin Dose 1 APPLIC; Start 06/01/18 at 09:00 Clonidine (Catapres) 0.1 mg Q6H PRN PO ELEVATED BLOOD PRESSURE Last administered on 06/17/18 05:59; Admin Dose 0.1 MG; Start 06/03/18 at 03:30 Bumetanide (Bumex) 1 mg BID DIURETICS GTB Last administered on 07/02/18 05:35; Admin Dose 1 MG; Start 06/11/18 at 18:00 Collagenase (Santyl) 1 applic PRN PRN TOP WHEN SOILED; Start 06/13/18 at 01:00 Nystatin (Nystatin Powder) 1 applic BID TOP Last administered on 07/02/18 08:23; Admin Dose 1 APPLIC; Start 06/13/18 at 14:00 Vancomycin HCl (Vancomycin Oral Syringe) 250 mg Q48H GTB Last administered on 07/01/18 17:38; Admin Dose 250 MG; Start 06/29/18 at 14:00; Stop 07/06/18 at 13:59 Epoetin Zen-epbx (RETACRIT(esrd)) 20,000 unit Tu@1700 SC Last administered on 06/30/18 17:46; Admin Dose 20,000 UNIT; Start 06/16/18 at 18:30 Miscellaneous Information 1 ea NOTE XX ; Start 06/26/18 at 08:00 Dicyclomine HCl (Bentyl) 20 mg Q8 PO Last administered on 07/02/18 13:13; Admin Dose 20 MG; Start 06/27/18 at 22:00 Cholestyramine Resin (Questran Light) 4 gm 0600,1200,1800,2300 GTB Last administered on 07/02/18 13:13; Admin Dose 4 GM; Start 06/27/18 at 18:00 Metoprolol Tartrate (Lopressor) 50 mg BID GTB Last administered on 07/02/18 0 8:24; Admin Dose 50 MG; Start 06/29/18 at 21:00 Amiodarone HCl (Cordarone) 200 mg DAILY GTB Last administered on 07/02/18 08:22; Admin Dose 200 MG; Start 07/01/18 at 09:00 Lorazepam (Ativan) 0.5 mg Q4 PRN IV ANXIETY Last administered on 07/02/18at 10:52; Admin Dose 0.5 MG; Start 07/01/18 at 14:00 Evangelista Scanlon DO July 02, 2018 15:52
--- NOTE | 2018-07-02 17:38 | CONS ---
Assessment/Plan Assessment/Plan Assessment/Plan (Daily) 1. ABD pain -CT of abd 2. Renal failure.- on HD 3. Vent dependent resp failure 4. Chronic obstructive pulmonary disease. 5. Bipolar. 6. Paroxysmal atrial fibrillation. 7. Anemia of chronic disease. 8. CHF 9. Diarrhea 11. Diarrhea -s/p c diff colitis -taper off of vanco -resolved 12. H/O deep esophageal ulcer 13. Dysphagia with g tube 14. Anemia of chronic disease 15. UTI with positive cx CT of abd/pelvis 06/16 1. Nonspecific bibasilar ground-glass densities and the airspace disease, suggesting bilateral pneumonia versus pulmonary edema. 2. Atrophy of the left kidney. 2.3 cm left renal cyst. The right kidney demonstrates compensatory hypertrophy. No calculus or hydronephrosis in either kidney. 3. Atherosclerosis of the aorta. 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 No leak or rupture. 4. Mild nonspecific ascites in the pelvis. 5. Air-fluid levels are seen throughout the small bowel and colon. Consider mild ileus versus enterocolitis. PLAN: Continue with reglan and pepcid and bentyl Monitor tube feeds residuals q 6 hour Consultation Date/Type/Reason Admit Date/Time May 06, 2018 at 17:38 Initial Consult Date 05/10/18 Requesting Provider: ROLAND IGRON MD Date/Time of Note DATE: 07/02/18 TIME: 17:37 24 HR Interval Summary Constitutional: improved Exam/Review of Systems Exam Vitals Vital Signs Date Temp Pulse Resp B/P (MAP) Pulse Ox O2 O2 Flow FiO2 Time Delivery Rate 07/02/18 69 23 99 30 17:15 07/02/18 97.9 109/59 Mechanical 12:25 (76) Ventilator Trach Collar Intake and Output 07/01/18 07/01/18 07/02/18 1515:00 23:00 07:00 IntakeIntake Total 50 ml 380 ml 980 ml OutputOutput Total 600 ml 800 ml BalanceBalance 50 ml -220 ml 180 ml Constitutional: alert, oriented ENMT: intubated Neck: supple, non-tender Respiratory: diminished breath sounds Extremities: normal pulses Results Result Diagram: 07/01/18 0601 07/02/18 0650 Results 24hrs Laboratory Tests Test 07/02/18 06:50 Sodium Level 133 L Potassium Level 4.0 Chloride Level 107 Carbon Dioxide Level 15 L Anion Gap 11 Blood Urea Nitrogen 71 H Creatinine 1.65 H Est Glomerular Filtrat Rate mL/min Glucose Level 94 Calcium Level 9.5 Phosphorus Level 4.1 Magnesium Level 2.1 Medications Medication Current Medications IV Flush (NS 10 ml) 10 ml PRN IV ; Start 05/06/18 at 20:30 Ascorbic Acid (Vitamin C) 500 mg DAILY GTB Last administered on 07/02/18 0 8:21; Admin Dose 500 MG; Start 05/07/18 at 09:00 Albuterol/ Ipratropium (Duoneb) 3 ml Q2H RESP THERAPY PRN HHN SHORTNESS OF BREATH Last administered on 06/30/18 19:30; Admin Dose 3 ML; Start 05/06/18 at 23:30 Zinc Sulfate (Zinc Sulfate) 220 mg DAILY GTB Last administered on 07/02/18 08:22; Admin Dose 220 MG; Start 05/07/18 at 09:00 Ondansetron HCl (Zofran Tab) 4 mg Q6H PRN GTB NAUSEA AND/OR VOMITING Last administered on 05/31/18 16:47; Admin Dose 4 MG; Start 05/07/18 at 00:15 Multivitamins (Multivitamin) 30 ml DAILY GTB Last administered on 07/02/18 08:23; Admin Dose 30 ML; Start 05/07/18 at 09:00 Miscellaneous Information (Pending Santyl Order For Wound Care) This patient goldman... PRN PRN XX WOUND CARE; Start 05/09/18 at 17:00 Spironolactone (Aldactone) 50 mg DAILY GTB Last administered on 07/02/18 08:22; Admin Dose 50 MG; Start 05/21/18 at 09:00 Famotidine (Pepcid) 20 mg DAILY PEG Last administered on 07/02/18 08:21; Admin Dose 20 MG; Start 05/23/18 at 09:00 Morphine Sulfate (morphine) 6 mg Q4H PRN PEG SEVERE PAIN LEVEL 7-10 Last administered on 06/30/18 12:07; Admin Dose 6 MG; Start 05/22/18 at 17:00 Acetaminophen (Tylenol Tab) 650 mg Q4H PRN PO MILD PAIN(1-3)OR ELEVATED TEMP Last administered on 06/10/18 21:44; Admin Dose 650 MG; Start 05/31/18 at 13:00 Metoclopramide HCl (Reglan) 5 mg Q6 IV Last administered on 07/02/18 17:31; Admin Dose 5 MG; Start 05/31/18 at 13:00 Collagenase (Santyl) 1 applic DAILY TOP Last administered on 07/02/18 08:23; Admin Dose 1 APPLIC; Start 06/01/18 at 09:00 Clonidine (Catapres) 0.1 mg Q6H PRN PO ELEVATED BLOOD PRESSURE Last administered on 06/17/18 05:59; Admin Dose 0.1 MG; Start 06/03/18 at 03:30 Bumetanide (Bumex) 1 mg BID DIURETICS GTB Last administered on 07/02/18 17:31; Admin Dose 1 MG; Start 06/11/18 at 18:00 Collagenase (Santyl) 1 applic PRN PRN TOP WHEN SOILED; Start 06/13/18 at 01:00 Nystatin (Nystatin Powder) 1 applic BID TOP Last administered on 07/02/18 08:23; Admin Dose 1 APPLIC; Start 06/13/18 at 14:00 Vancomycin HCl (Vancomycin Oral Syringe) 250 mg Q48H GTB Last administered on 07/01/18 17:38; Admin Dose 250 MG; Start 06/29/18 at 14:00; Stop 07/06/18 at 13:59 Epoetin Zen-epbx (RETACRIT(esrd)) 20,000 unit Tu@1700 SC Last administered on 06/30/18 17:46; Admin Dose 20,000 UNIT; Start 06/16/18 at 18:30 Miscellaneous Information 1 ea NOTE XX ; Start 06/26/18 at 08:00 Dicyclomine HCl (Bentyl) 20 mg Q8 PO Last administered on 07/02/18 13:13; Admin Dose 20 MG; Start 06/27/18 at 22:00 Cholestyramine Resin (Questran Light) 4 gm 0600,1200,1800,2300 GTB Last administered on 07/02/18 13:13; Admin Dose 4 GM; Start 06/27/18 at 18:00 Metoprolol Tartrate (Lopressor) 50 mg BID GTB Last administered on 07/02/18 08:24; Admin Dose 50 MG; Start 06/29/18 at 21:00 Amiodarone HCl (Cordarone) 200 mg DAILY GTB Last administered on 07/02/18 08:22; Admin Dose 200 MG; Start 07/01/18 at 09:00 Lorazepam (Ativan) 0.5 mg Q4 PRN IV ANXIETY Last administered on 07/02/18 17:31; Admin Dose 0.5 MG; Start 07/01/18 at 14:00 QUINTEN UMAÑA MD July 02, 2018 17:38
--- NOTE | 2018-07-02 21:32 | CONS ---
Assessment/Plan Assessment/Plan Hospital Course (Demo Recall) # sepsis, leukocytosis, SIRS, pulmonary, cardiac - recurrent leukocytosis due to recurrent UTI, improved - s/p septic shock due to pneumonia and C diff colitis - acute on chronic hypoxic respiratory failure, persistent - s/p reintubation 05/12/2018 - s/p re-do trach on 05/29/2018 - recurrent colonization of the anterior neck wound with ESBL+kleb, MRSA, GBS, corynebacteria on 05/06/2018, s/p meropenem - h/o pneumonia vs. colonization of the airway by pseudomonas and ESBL+klebsiella - h/o possible, recurrent HCAP due to pseudomonas and ESBL+klebsiella - h/o recurrent HCAP due to MRSA and Enterobacter (culture of tracheal aspirate on 07/16/2017 that was collected at [facility]) . Pt took vancomycin and ceftazidime - h/o decannulation prior to admission - h/o tracheostomy on 06/11/2017 - h/o SIRS from UGIB in 2018 - h/o thoracentesis on 07/18/2017, transudative (protein <2, LDH 279) - h/o bleeding from the trach site in 2018 - h/o septic shock due to pneumonia, ARDS, bacteremia, fungemia in 2018 - h/o ARDS in 2018 - h/o smoking - COPD - h/o ILD per medical record - h/o PAF, improved # GI - possible ileus or enterocolitis on CT abd/pel 06/15/2018 - C diff colitis, diagnosed on 05/11/2018. Pt's on pGT vancomycin induction followed by taper (05/11/2018-); Pt previously took IV metronidazole (05/11/2018- 05/29/2018; restart 05/30/2018-06/05/18) too - h/o intermittent diarrhea, Pt had multiple negative C. diff tests at [facility] at OSH in the past; none was positive until 05/11/2018 - dysphagia - h/o PEG placement 06/13/2018 - protein calorie malnutrition - h/o coffee ground emesis/UGIB on 12/23/2017 due to deep ulceration of distal esophagus and gastritis on EGD 12/26/2017. No e/o H. pylori - h/o possible appendicitis on CT on 11/22/2017, Pt took ertapenem (11/24/2017-12/01/2017) - h/o extensive adhesions lower abdominal and pelvis between small bowel to each other and to colon and to abdominal wall, anterior pelvic wall chronic abscess secondary to probably an old perforated diverticulitis, torsion of small bowel around these dense adhesion causing multiple obstructive points - h/o laparoscopic exploration and extensive lysis of adhesions and drainage of anterior pelvic wall abscess 09/16/2017. Cultures were negative, no e/o malignancy. 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 S/p renally dosed amikacin for klebsiella in her urine culture (06/17-06/22/2018) - UTI due to pseudomonas and ESBL+klebsiella on 06/09/2018, Pt took one dose of fosfomycin on 06/10/2018 and cipro 06/12-06/15/2018 - anasarca - started on HD on 05/15/2018, via Juan in R groin - recurrent NATHAN on CKD - 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 Her strain of CRE was sensitive to colistin, Avycaz, and Vabomere but resistant to Zerbaxa (reported on 05/19/2018) - metabolic acidosis - adrenal insufficiency - h/o vaginal bleed in 2018 - h/o colonization of urinary tract by ESBL+klebsiella, VRE - h/o recurrent, symptomatic UTI due to carbapenem-resistant kleb (MDR strain) per urine culture 10/04/17, 10/09/17, 10/21/2017, P took colistin (10/09/2017- 10/15/2017), fosfomycin for carbapenemase-producing klebsiella and VRE on 10/25/2017 and 10/28/2017 - h/o funguria - h/o urinary retention # fungemia, bacteremia 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; Pt declined surgery for MVR per outside medical records; TTE 07/01/17 did not mention any thrombus; s/p voriconazole (05/25/2017-08/01/2017) - h/o bacteremia due to MSSA and proteus s/p ceftriaxone; repeat blood cultures were negative on 06/14/2017 # musculoskeletal and dermatological - L hand pain - dry skin - chronic wound of LLE - h/o infection of wound of LLE - h/o debridement of wound of LLE on 08/06/2017 - h/o recurrent herpes labialis, Pt took acyclovir, valacyclovir - h/o Osler's nodes (eschar) of R toes with erythematous skin; desquamation of the skin and open lacerations on R plantar foot. improved. Probable manifestation of endocarditis. Pt declined MRI on 08/06/2017 - h/o infection of R toes due to pseudomonas. coagulase negative Staph likely a colonizer - h/o intertrigo of the groin, resolved with nystatin powder - h/o scabies, locally crusted lesion over L scapula, s/p permethrin cream and pGT ivermectin on 08/11/2017, 08/12/2017, 08/19/2017. Repeat skin scraping on 08/21/2017 was negative for scabies # psych, neuro - decreased hearing b/l - s/p acute toxic metabolic encephalopathy - h/o critical illness polyneuropathy - anxiety/depression, bipolar d/o, seen by Psychiatry in the past - chronic pain syndrome - h/o medical non-compliance: she would refuse her medications, treatment and straight catheterization in 2018 # hematological, vascular - chronic anemia requiring blood transfusion intermittently - macrocytic anemia - aneurysmal dilatation of the distal aorta visualized on CT 06/15/2018 - PVD Recommendations: - Monitor closely off systemic antibiotics. S/p renally dosed amikacin for klebsiella in her urine culture (06/17-06/22/2018) - Continue pGT vancomycin taper: 06/29-07/05/2018: q48hrs Above plan d/w via [employer]. Consultation Date/Type/Reason Admit Date/Time May 06, 2018 at 17:38 Initial Consult Date 05/10/18 Requesting Provider: ROLAND GIRON MD Date/Time of Note DATE: 07/02/18 TIME: 21:29 24 HR Interval Summary Free Text/Dictation Per d/w patients nurse, patient has not had a BM today. Subjective hx not possible: pt non-verbal Detailed Summary Additional Comments Unable to obtain as pt is trached and agitated. Exam/Review of Systems Exam Vitals Vital Signs Date Temp Pulse Resp B/P (MAP) Pulse Ox O2 O2 Flow FiO2 Time Delivery Rate 07/02/18 98.7 71 24 135/68 100 Mechanical 20:15 (90) Ventilator 07/02/18 30 20:10 Intake and Output 07/01/18 07/01/18 07/02/18 1515:00 23:00 07:00 IntakeIntake Total 50 ml 380 ml 980 ml OutputOutput Total 600 ml 800 ml BalanceBalance 50 ml -220 ml 180 ml Exam Constitutional: alert, well developed, non-verbal, frail, obese Psych: nl mood/affect Head: normocephalic, atraumatic Eyes: nl conjunctiva, nl lids, nl sclera ENMT: nl external ears & nose, nl nasal mucosa & septum Neck: supple, non-tender, other (on mechanical vent via trach, trach midline, site is c/d/i) Respiratory: normal air movement, diminished breath sounds No wheezing Cardiovascular: regular rate and rhythm, nl pulses Gastrointestinal: soft, non-tender, bowel sounds (normoactive ), No distended, No firm Genitourinary - Female: other HD Musculoskeletal: muscle weakness, other (julia foot drop) Extremities: normal pulses, edema (BUE, BLE +1); No tenderness Neurological: Awake, alert, communicates via mouthing words, follows commands Skin: nl turgor Results Result Diagram: 07/01/18 0601 07/02/18 0650 Results 24hrs Laboratory Tests Test 07/02/18 06:50 Sodium Level 133 L Potassium Level 4.0 Chloride Level 107 Carbon Dioxide Level 15 L Anion Gap 11 Blood Urea Nitrogen 71 H Creatinine 1.65 H Est Glomerular Filtrat Rate mL/min Glucose Level 94 Calcium Level 9.5 Phosphorus Level 4.1 Magnesium Level 2.1 Medications Medication Current Medications IV Flush (NS 10 ml) 10 ml PRN IV ; Start 05/06/18 at 20:30 Ascorbic Acid (Vitamin C) 500 mg DAILY GTB Last administered on 07/02/18 08:21; Admin Dose 500 MG; Start 05/07/18 at 09:00 Albuterol/ Ipratropium (Duoneb) 3 ml Q2H RESP THERAPY PRN HHN SHORTNESS OF BREATH Last administered on 06/30/18 19:30; Admin Dose 3 ML; Start 05/06/18 at 23:30 Zinc Sulfate (Zinc Sulfate) 220 mg DAILY GTB Last administered on 07/02/18 08:22; Admin Dose 220 MG; Start 05/07/18 at 09:00 Ondansetron HCl (Zofran Tab) 4 mg Q6H PRN GTB NAUSEA AND/OR VOMITING Last administered on 05/31/18 16:47; Admin Dose 4 MG; Start 05/07/18 at 00:15 Multivitamins (Multivitamin) 30 ml DAILY GTB Last administered on 07/02/18 08:23; Admin Dose 30 ML; Start 05/07/18 at 09:00 [facility]isc[facility] This patient goldman... PRN PRN XX WOUND CARE; Start 05/09/18 at 17:00 Spironolactone (Aldactone) 50 mg DAILY GTB Last administered on 07/02/18 08:22; Admin Dose 50 MG; Start 05/21/18 at 09:00 Famotidine (Pepcid) 20 mg DAILY PEG Last administered on 07/02/18 08:21; Admin Dose 20 MG; Start 05/23/18 at 09:00 Morphine Sulfate (morphine) 6 mg Q4H PRN PEG SEVERE PAIN LEVEL 7-10 Last administered on 06/30/18 12:07; Admin Dose 6 MG; Start 05/22/18 at 17:00 Acetaminophen (Tylenol Tab) 650 mg Q4H PRN PO MILD PAIN(1-3)OR ELEVATED TEMP Last administered on 06/10/18 21:44; Admin Dose 650 MG; Start 05/31/18 at 13:00 Metoclopramide HCl (Reglan) 5 mg Q6 IV Last administered on 07/02/18 17:31; Admin Dose 5 MG; Start 05/31/18 at 13:00 Collagenase (Santyl) 1 applic DAILY TOP Last administered on 07/02/18 08:23; Admin Dose 1 APPLIC; Start 06/01/18 at 09:00 Clonidine (Catapres) 0.1 mg Q6H PRN PO ELEVATED BLOOD PRESSURE Last administered on 06/17/18 05:59; Admin Dose 0.1 MG; Start 06/03/18 at 03:30 Bumetanide (Bumex) 1 mg BID DIURETICS GTB Last administered on 07/02/18 17:31; Admin Dose 1 MG; Start 06/11/18 at 18:00 Collagenase (Santyl) 1 applic PRN PRN TOP WHEN SOILED; Start 06/13/18 at 01:00 Nystatin (Nystatin Powder) 1 applic BID TOP Last administered on 07/02/18 08:23; Admin Dose 1 APPLIC; Start 06/13/18 at 14:00 Vancomycin HCl (Vancomycin Oral Syringe) 250 mg Q48H GTB Last administered on 07/01/18 17:38; Admin Dose 250 MG; Start 06/29/18 at 14:00; Stop 07/06/18 at 13:59 Epoetin Zen-epbx (RETACRIT(esrd)) 20,000 unit Tu@1700 SC Last administered on 06/30/18 17:46; Admin Dose 20,000 UNIT; Start 06/16/18 at 18:30 Miscellaneous Information 1 ea NOTE XX ; Start 06/26/18 at 08:00 Dicyclomine HCl (Bentyl) 20 mg Q8 PO Last administered on 07/02/18 13:13; Admin Dose 20 MG; Start 06/27/18 at 22:00 Cholestyramine Resin (Questran Light) 4 gm 0600,1200,1800,2300 GTB Last administered on 07/02/18 13:13; Admin Dose 4 GM; Start 06/27/18 at 18:00 Metoprolol Tartrate (Lopressor) 50 mg BID GTB Last administered on 07/02/18 08:24; Admin Dose 50 MG; Start 06/29/18 at 21:00 Amiodarone HCl (Cordarone) 200 mg DAILY GTB Last administered on 07/02/18 08:22; Admin Dose 200 MG; Start 07/01/18 at 09:00 Lorazepam (Ativan) 0.5 mg Q4 PRN IV ANXIETY Last administered on 07/02/18at 17:31; Admin Dose 0.5 MG; Start 07/01/18 at 14:00 ARANZA FAY NP July 02, 2018 21:32
[2018-07-03] VITALS (20 sets, daily range): BP systolic 115–128; BP diastolic 60–68; PULSE 61–68; RESP 18–26
[2018-07-03] MEDS: LORAZEPAM 2 MG INJ IV PRN ×2 (03:20→17:32)
[2018-07-03] MEDS: METOCLOPRAMIDE 10 MG INJ IV SCH ×4 (05:54→23:14)
[2018-07-03] MEDS: DICYCLOMINE 10 MG CAP PO SCH ×3 (05:54→21:52)
[2018-07-03] MEDS: BUMETANIDE 1 MG TAB GTB SCH ×2 (05:54→17:19)
[2018-07-03] MEDS: CHOLESTYRAMINE (LIGHT) 4 GM PACKET GTB SCH ×4 (05:55→23:14)
[2018-07-03] MEDS: ZINC SULFATE 220 MG CAP GTB SCH (08:41)
[2018-07-03] MEDS: SPIRONOLACTONE 25 MG TAB GTB SCH (08:41)
[2018-07-03] MEDS: AMIODARONE 200 MG TAB GTB SCH (08:41)
[2018-07-03] MEDS: ASCORBIC ACID 500 MG TAB GTB SCH (08:41)
[2018-07-03] MEDS: FAMOTIDINE 20 MG TAB PEG SCH (08:41)
[2018-07-03] MEDS: METOPROLOL 50 MG TAB GTB SCH ×2 (08:41→21:52)
[2018-07-03] MEDS: MULTIVITAMINS 30 ML CUP GTB SCH (08:41)
[2018-07-03] MEDS: COLLAGENASE 5 GM (UD JAR) TOP SCH (08:42)
[2018-07-03] MEDS: BALSAM PERU/CASTOR OIL 60 GM TUBE TOP SCH ×2 (08:42→21:53)
[2018-07-03] MEDS: NYSTATIN 30 GM POWDER BTL TOP SCH ×2 (08:42→21:53)
--- NOTE | 2018-07-03 10:08 | PN ---
DATE: 07/03/2018 SUBJECTIVE: The patient is stable. No events overnight. OBJECTIVE: VITAL SIGNS: Blood pressure is 117/61, respirations 20, pulse 68, temperature 98.0. HEENT: Head is normocephalic. NECK: Supple. HEART: Regular rate. LUNGS: Show diminished breath sounds at the base. ABDOMEN: Soft, nontender to palpation without rebound or guarding. EXTREMITIES: Negative for clubbing, cyanosis, no edema. DERMATOLOGIC: No rashes. MUSCULOSKELETAL: No joint effusion. NEUROLOGIC: No change in exam. MEDICATIONS: Reviewed. LABORATORY DATA: Reviewed. IMAGING STUDIES: Reviewed. ASSESSMENT AND PLAN: 1. Nonoliguric acute kidney injury on top of chronic kidney disease stage IIIb/IV with previous base line creatinine of 2.0 mg/dL. Etiology of acute kidney injury is secondary to acute tubular necrosis . Renal function stabilized. Continue current treatment plan. 2. Volume overload, stable, improving. Continue Bumex. 3. Hypernatremia, resolved. The patient's free water flushes were adjusted. 4. Hypomagnesemia. Continue to monitor and replete as needed. 5. Anemia. Continue to monitor hemoglobin and hematocrit levels. 6. Mineral bone disorder, monitor calcium and phosphorus levels. 7. Ventilator-dependent respiratory failure. Vent settings have been reviewed. Continue to monitor . 8. Sepsis, status post shock. The patient is completing antibiotic course. 9. Clostridium difficile. Continue oral vancomycin. 10. Lower extremity wounds. Continue wound care. 11. Dysphagia. Continue tube feeding. 12. Encephalopathy. Continue to monitor. Dictated By: JEANA BANSAL DO NR/NTS Conf#: [id number] DID#: [id number] CC: ROLAND GIRON MD; QUINTEN UMAÑA MD;*EndCC*
--- NOTE | 2018-07-03 11:58 | CONS ---
Assessment/Plan Assessment/Plan Hospital Course (Demo Recall) Septic as well as hemorrhagic shock-resolved Acute respiratory failure status post intubation and repeat tracheostomy Acute blood loss anemia History of respiratory failure status post decannulation Preserved ejection fraction echocardiogram 05/10/2018 Paroxysmal atrial fibrillation Acute kidney injury History of hypertension-now labile BP -Patient with paroxysmal atrial fibrillation, has remained sinus -Continue beta-tin and amiodarone and titrate as tolerated -Vent management as per pulmonary -Fluid management and electrolytes as per renal -Antibiotics as per infectious disease -No anticoagulation given recurrent anemia requiring blood transfusions Consultation Date/Type/Reason Admit Date/Time May 06, 2018 at 17:38 Initial Consult Date 05/10/18 Type of Consult Cardiology Requesting Provider: ROLAND GIRON MD Date/Time of Note DATE: 07/03/18 TIME: 11:57 24 HR Interval Summary Free Text/Dictation Denies shortness of breath, palpitations Exam/Review of Systems Vital Signs Vitals Vital Signs Date Temp Pulse Resp B/P (MAP) Pulse Ox O2 O2 Flow FiO2 Time Delivery Rate 07/03/18 30 08:30 07/03/18 65 08:18 07/03/18 98.0 20 117/61 96 Mechanical 07:59 (79) Ventilator Trach Collar Intake and Output 07/02/18 07/02/18 07/03/18 1414:59 22:59 06:59 IntakeIntake Total 630 ml 560 ml OutputOutput Total 1800 ml 950 ml BalanceBalance -1170 ml -390 ml Exam Constitutional: alert (No apparent distress, answering some questions) Head: normocephalic Respiratory: other (Coarse breath sounds bilaterally, no wheezing) Cardiovascular: regular rate and rhythm (S1-S2 heard) Gastrointestinal: soft, non-tender, bowel sounds Extremities: edema Labs Result Diagram: 07/01/18 0601 07/03/18 0551 Results 24hrs Laboratory Tests Test 07/03/18 05:51 Sodium Level 135 Potassium Level 4.3 Chloride Level 109 Carbon Dioxide Level 16 L Anion Gap 10 Blood Urea Nitrogen 75 H Creatinine 1.72 H Est Glomerular Filtrat Rate mL/min Glucose Level 114 Calcium Level 10.1 Phosphorus Level 4.4 Magnesium Level 2.0 Medications Medications Current Medications IV Flush (NS 10 ml) 10 ml PRN IV ; Start 05/06/18 at 20:30 Ascorbic Acid (Vitamin C) 500 mg DAILY GTB Last administered on 07/03/18 08:41; Admin Dose 500 MG; Start 05/07/18 at 09:00 Albuterol/ Ipratropium (Duoneb) 3 ml Q2H RESP THERAPY PRN HHN SHORTNESS OF RADHA ATH Last administered on 06/30/18 19:30; Admin Dose 3 ML; Start 05/06/18 at 23:30 Zinc Sulfate (Zinc Sulfate) 220 mg DAILY GTB Last administered on 07/03/18 08:41; Admin Dose 220 MG; Start 05/07/18 at 09:00 Ondansetron HCl (Zofran Tab) 4 mg Q6H PRN GTB NAUSEA AND/OR VOMITING Last administered on 05/31/18 16:47; Admin Dose 4 MG; Start 05/07/18 at 00:15 Multivitamins (Multivitamin) 30 ml DAILY GTB Last administered on 07/03/18 08:41; Admin Dose 30 ML; Start 05/07/18 at 09:00 Miscellaneous Information (Pending Santyl Order For Wound Care) This patient goldman... PRN PRN XX WOUND CARE; Start 05/09/18 at 17:00 Spironolactone (Aldactone) 50 mg DAILY GTB Last administered on 07/03/18 08:41; Admin Dose 50 MG; Start 05/21/18 at 09:00 Famotidine (Pepcid) 20 mg DAILY PEG Last administered on 07/03/18 08:41; Admin Dose 20 MG; Start 05/23/18 at 09:00 Morphine Sulfate (morphine) 6 mg Q4H PRN PEG SEVERE PAIN LEVEL 7-10 Last administered on 06/30/18 12:07; Admin Dose 6 MG; Start 05/22/18 at 17:00 Acetaminophen (Tylenol Tab) 650 mg Q4H PRN PO MILD PAIN(1-3)OR ELEVATED TEMP Last administered on 06/10/18 21:44; Admin Dose 650 MG; Start 05/31/18 at 13:00 Metoclopramide HCl (Reglan) 5 mg Q6 IV Last administered on 07/03/18 05:54; Admin Dose 5 MG; Start 05/31/18 at 13:00 Collagenase (Santyl) 1 applic DAILY TOP Last administered on 07/03/18 08:42; Admin Dose 1 APPLIC; Start 06/01/18 at 09:00 Clonidine (Catapres) 0.1 mg Q6H PRN PO ELEVATED BLOOD PRESSURE Last administered on 06/17/18 05:59; Admin Dose 0.1 MG; Start 06/03/18 at 03:30 Bumetanide (Bumex) 1 mg BID DIURETICS GTB Last administered on 07/03/18 05:54; Admin Dose 1 MG; Start 06/11/18 at 18:00 Collagenase (Santyl) 1 applic PRN PRN TOP WHEN SOILED; Start 06/13/18 at 01:00 Nystatin (Nystatin Powder) 1 applic BID TOP Last administered on 07/03/18 08:42; Admin Dose 1 APPLIC; Start 06/13/18 at 14:00 Vancomycin HCl (Vancomycin Oral Syringe) 250 mg Q48H GTB Last administered on 07/01/18 17:38; Admin Dose 250 MG; Start 06/29/18 at 14:00; Stop 07/06/18 at 13:59 Epoetin Zen-epbx (RETACRIT(esrd)) 20,000 unit Tu@1700 SC Last administered on 06/30/18 17:46; Admin Dose 20,000 UNIT; Start 06/16/18 at 18:30 Miscellaneous Information 1 ea NOTE XX ; Start 06/26/18 at 08:00 Dicyclomine HCl (Bentyl) 20 mg Q8 PO Last administered on 07/03/18 05:54; Admin Dose 20 MG; Start 06/27/18 at 22:00 Cholestyramine Resin (Questran Light) 4 gm 0600,1200,1800,2300 GTB Last administered on 07/03/18 05:55; Admin Dose 4 GM; Start 06/27/18 at 18:00 Metoprolol Tartrate (Lopressor) 50 mg BID GTB Last administered on 07/03/18 08:41; Admin Dose 50 MG; Start 06/29/18 at 21:00 Amiodarone HCl (Cordarone) 200 mg DAILY GTB Last administered on 07/03/18 08:41; Admin Dose 200 MG; Start 07/01/18 at 09:00 Lorazepam (Ativan) 0.5 mg Q4 PRN IV ANXIETY Last administered on 5/17/19at 03:20; Admin Dose 0.5 MG; Start 07/01/18 at 14:00 Evangelista Scanlon DO July 03, 2018 11:58
--- NOTE | 2018-07-03 13:18 | CONS ---
Assessment/Plan Assessment/Plan Assessment/Plan (Daily) 1. ABD pain better -CT of abd 2. Renal failure.- 3. Vent dependent resp failure 4. Chronic obstructive pulmonary disease. 5. Bipolar. 6. Paroxysmal atrial fibrillation. 7. Anemia of chronic disease. 8. CHF 9. Diarrhea 11. Diarrhea -s/p c diff colitis -taper off of vanco -resolved 12. H/O deep esophageal ulcer 13. Dysphagia with g tube 14. Anemia of chronic disease 15. UTI with positive cx CT of abd/pelvis 06/16 1. Nonspecific bibasilar ground-glass densities and the airspace disease, suggesting bilateral pneumonia versus pulmonary edema. 2. Atrophy of the left kidney. 2.3 cm left renal cyst. The right kidney demonstrates compensatory hypertrophy. No calculus or hydronephrosis in either kidney. 3. Atherosclerosis of the aorta. 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 No leak or rupture. 4. Mild nonspecific ascites in the pelvis. 5. Air-fluid levels are seen throughout the small bowel and colon. Consider mild ileus versus enterocolitis. PLAN: Continue with reglan and pepcid and bentyl Consultation Date/Type/Reason Admit Date/Time May 06, 2018 at 17:38 Initial Consult Date 05/10/18 Requesting Provider: ROLAND GIRON MD Date/Time of Note DATE: 07/03/18 TIME: 13:17 24 HR Interval Summary Constitutional: no complaints, improved Exam/Review of Systems Exam Vitals Vital Signs Date Temp Pulse Resp B/P (MAP) Pulse Ox O2 O2 Flow FiO2 Time Delivery Rate 07/03/18 63 12:10 07/03/18 30 08:30 07/03/18 98.0 20 117/61 96 Mechanical 07:59 (79) Ventilator Trach Collar Intake and Output 07/02/18 07/02/18 07/03/18 1515:00 23:00 07:00 IntakeIntake Total 630 ml 560 ml OutputOutput Total 1800 ml 950 ml BalanceBalance -1170 ml -390 ml Constitutional: alert, oriented Psych: depression ENMT: intubated Results Result Diagram: 07/01/18 0601 07/03/18 0551 Results 24hrs Laboratory Tests Test 07/03/18 05:51 Sodium Level 135 Potassium Level 4.3 Chloride Level 109 Carbon Dioxide Level 16 L Anion Gap 10 Blood Urea Nitrogen 75 H Creatinine 1.72 H Est Glomerular Filtrat Rate mL/min Glucose Level 114 Calcium Level 10.1 Phosphorus Level 4.4 Magnesium Level 2.0 Medications Medication Current Medications IV Flush (NS 10 ml) 10 ml PRN IV ; Start 05/06/18 at 20:30 Ascorbic Acid (Vitamin C) 500 mg DAILY GTB Last administered on 07/03/18 08:41; Admin Dose 500 MG; Start 05/07/18 at 09:00 Albuterol/ Ipratropium (Duoneb) 3 ml Q2H RESP THERAPY PRN HHN SHORTNESS OF BREATH Last administered on 06/30/18 19:30; Admin Dose 3 ML; Start 05/06/18 at 23:30 Zinc Sulfate (Zinc Sulfate) 220 mg DAILY GTB Last administered on 07/03/18 08:41; Admin Dose 220 MG; Start 05/07/18 at 09:00 Ondansetron HCl (Zofran Tab) 4 mg Q6H PRN GTB NAUSEA AND/OR VOMITING Last administered on 05/31/18 16:47; Admin Dose 4 MG; Start 05/07/18 at 00:15 Multivitamins (Multivitamin) 30 ml DAILY GTB Last administered on 07/03/18 08:41; Admin Dose 30 ML; Start 05/07/18 at 09:00 Miscellaneous Information (Pending [facility] Order For Wound Care) This patient goldman... PRN PRN XX WOUND CARE; Start 05/09/18 at 17:00 Spironolactone (Aldactone) 50 mg DAILY GTB Last administered on 07/03/18 08 :41; Admin Dose 50 MG; Start 05/21/18 at 09:00 Famotidine (Pepcid) 20 mg DAILY PEG Last administered on 07/03/18 08:41; Admin Dose 20 MG; Start 05/23/18 at 09:00 Morphine Sulfate (morphine) 6 mg Q4H PRN PEG SEVERE PAIN LEVEL 7-10 Last administered on 06/30/18 12:07; Admin Dose 6 MG; Start 05/22/18 at 17:00 Acetaminophen (Tylenol Tab) 650 mg Q4H PRN PO MILD PAIN(1-3)OR ELEVATED TEMP Last administered on 06/10/18 21:44; Admin Dose 650 MG; Start 05/31/18 at 13:00 Metoclopramide HCl (Reglan) 5 mg Q6 IV Last administered on 07/03/18 05:54; Admin Dose 5 MG; Start 05/31/18 at 13:00 Collagenase (Santyl) 1 applic DAILY TOP Last administered on 07/03/18 08:42; Admin Dose 1 APPLIC; Start 06/01/18 at 09:00 Clonidine (Catapres) 0.1 mg Q6H PRN PO ELEVATED BLOOD PRESSURE Last administered on 06/17/18 05:59; Admin Dose 0.1 MG; Start 06/03/18 at 03:30 Bumetanide (Bumex) 1 mg BID DIURETICS GTB Last administered on 07/03/18 05:54; Admin Dose 1 MG; Start 06/11/18 at 18:00 Collagenase (Santyl) 1 applic PRN PRN TOP WHEN SOILED; Start 06/13/18 at 01:00 Nystatin (Nystatin Powder) 1 applic BID TOP Last administered on 07/03/18 08:42; Admin Dose 1 APPLIC; Start 06/13/18 at 14:00 Vancomycin HCl (Vancomycin Oral Syringe) 250 mg Q48H GTB Last administered on 07/01/18 17:38; Admin Dose 250 MG; Start 06/29/18 at 14:00; Stop 07/06/18 at 13:59 Epoetin Zen-epbx (RETACRIT(esrd)) 20,000 unit Tu@1700 SC Last administered on 06/30/18 17:46; Admin Dose 20,000 UNIT; Start 06/16/18 at 18:30 Miscellaneous Information 1 ea NOTE XX ; Start 06/26/18 at 08:00 Dicyclomine HCl (Bentyl) 20 mg Q8 PO Last administered on 07/03/18 05:54; Admin Dose 20 MG; Start 06/27/18 at 22:00 Cholestyramine Resin (Questran Light) 4 gm 0600,1200,1800,2300 GTB Last administered on 07/03/18 05:55; Admin Dose 4 GM; Start 06/27/18 at 18:00 Metoprolol Tartrate (Lopressor) 50 mg BID GTB Last administered on 07/03/18 08:41; Admin Dose 50 MG; Start 06/29/18 at 21:00 Amiodarone HCl (Cordarone) 200 mg DAILY GTB Last administered on 07/03/18at 08:41; Admin Dose 200 MG; Start 07/01/18 at 09:00 Lorazepam (Ativan) 0.5 mg Q4 PRN IV ANXIETY Last administered on 07/03/18at 03:20; Admin Dose 0.5 MG; Start 07/01/18 at 14:00 QUINTEN UMAÑA MD July 03, 2018 13:18
--- NOTE | 2018-07-03 13:20 | PN ---
Date/Time of Note Date/Time of Note DATE: 07/03/18 TIME: 11:09 Assessment/Plan VTE Prophylaxis Risk score (from [facility] [place]0 risk: 10 SCD applied (from [facility] [place]): Yes SCD contraindicated: other Pharmacological prophylaxis: other Pharm contraindication: other Lines/Catheters [facility] Type [facility] PICC Line Central line still needed: Yes Urinary Cath still in place: Yes Reason Cath still needed: urinary retention Assessment/Plan Assessment/Plan Patient is lethargic but easily arousable, continues on ventilatory support without distress, remains afebrile, pending placement. No bed is available to day per case management meeting in the morning. Assessment/Plan -MDR Klebsiella urinary tract infection, completed treatment with amikacin. Dr. Doyle is following in infectious consultation. -Atrial fibrillation was rapid ventricular response, patient remains in sinus rhythm continue metoprolol and amiodarone. Dr. Scanlon is following in cardiology consultation. -S/p septic shock secondary to urinary tract infection, anterior neck soft tissue infection, and C. difficile colitis. -C-diff colitis, continue G-tube Vanco at the taper doses, -Acute respiratory failure requiring intubation and ventilatory support. Dr. Lambert is following in pulmonology consultation. -S/p tracheostomy on 05/29/18. -Acute kidney injury on chronic kidney disease. Started on HD this admission. Dr. Mckeon is following in nephrology consultation. -Anemia of chronic inflammation, stool for OB is negative, status post blood transfusion. Continue Epogen. -Metabolic acidosis, resolved. -Acute diastolic congestive heart failure. -Paroxysmal atrial fibrillation -COPD -Dysphagia with PEG. -G-tube mild malfunction, changed by GI Dr. Carolina is following in gastroenter ology consultation. -Obesity Further recommendations based on clinical course. Plan of care discussed with Dr. Eisenberg. Result Diagram: 07/01/18 0601 07/03/18 0551 Results 24hrs Laboratory Tests Test 07/03/18 05:51 Sodium Level 135 Potassium Level 4.3 Chloride Level 109 Carbon Dioxide Level 16 L Anion Gap 10 Blood Urea Nitrogen 75 H Creatinine 1.72 H Est Glomerular Filtrat Rate mL/min Glucose Level 114 Calcium Level 10.1 Phosphorus Level 4.4 Magnesium Level 2.0 Subjective 24 Hr Interval Summary Free Text/Dictation - L ethargic but easily arousable, - continues on ventilatory support without distress - afebrile - pending placement. No bed is available today per case management meeting in the morning. Subjective hx not possible: pt non-verbal Constitutional: requiring O2 Exam/Review of Systems Exam Vitals Vital Signs Date Temp Pulse Resp B/P (MAP) Pulse Ox O2 O2 Flow FiO2 Time Delivery Rate 07/03/18 65 08:18 07/03/18 98.0 20 117/61 96 Mechanical 07:59 (79) Ventilator Trach Collar 07/03/18 30 05:26 Intake and Output 07/02/18 07/02/18 07/03/18 1515:00 23:00 07:00 IntakeIntake Total 630 ml 560 ml OutputOutput Total 1800 ml 950 ml BalanceBalance -1170 ml -390 ml Constitutional: well developed, non-verbal, frail Psych: nl mood/affect Eyes: nl lids, nl sclera ENMT: nl external ears & nose Neck: other (trach inatct) Cardiovascular: nl pulses, other (s1s2) Gastrointestinal: soft, non-tender, other (gt intact) Musculoskeletal: muscle weakness, range of motion Extremities: normal pulses Neurological: lethargic Lymph: nontender Results Results 24hrs Laboratory Tests Test 07/03/18 05:51 Sodium Level 135 Potassium Level 4.3 Chloride Level 109 Carbon Dioxide Level 16 L Anion Gap 10 Blood Urea Nitrogen 75 H Creatinine 1.72 H Est Glomerular Filtrat Rate mL/min Glucose Level 114 Calcium Level 10.1 Phosphorus Level 4.4 Magnesium Level 2.0 Medications Medication Current Medications IV Flush (NS 10 ml) 10 ml PRN IV ; Start 05/06/18 at 20:30 Ascorbic Acid (Vitamin C) 500 mg DAILY GTB Last administered on 07/03/18at 08:41; Admin Dose 500 MG; Start 05/07/18 at 09:00 Albuterol/ Ipratropium (Duoneb) 3 ml Q2H RESP THERAPY PRN HHN SHORTNESS OF BREATH Last administered on 06/30/18at 19:30; Admin Dose 3 ML; Start 05/06/18 at 23:30 Zinc Sulfate (Zinc Sulfate) 220 mg DAILY GTB Last administered on 07/03/18at 08:41; Admin Dose 220 MG; Start 05/07/18 at 09:00 Ondansetron HCl (Zofran Tab) 4 mg Q6H PRN GTB NAUSEA AND/OR VOMITING Last administered on 05/31/18 16:47; Admin Dose 4 MG; Start 05/07/18 at 00:15 Multivitamins (Multivitamin) 30 ml DAILY GTB Last administered on 07/03/18 08:41; Admin Dose 30 ML; Start 05/07/18 at 09:00 Miscellaneous Information (Pending Santyl Order For Wound Care) This patient goldman... PRN PRN XX WOUND CARE; Start 05/09/18 at 17:00 Spironolactone (Aldactone) 50 mg DAILY GTB Last administered on 07/03/18 08:41; Admin Dose 50 MG; Start 05/21/18 at 09:00 Famotidine (Pepcid) 20 mg DAILY PEG Last administered on 07/03/18 08:41; Admin Dose 20 MG; Start 05/23/18 at 09:00 Morphine Sulfate (morphine) 6 mg Q4H PRN PEG SEVERE PAIN LEVEL 7-10 Last administered on 06/30/18 12:07; Admin Dose 6 MG; Start 05/22/18 at 17:00 Acetaminophen (Tylenol Tab) 650 mg Q4H PRN PO MILD PAIN(1-3)OR ELEVATED TEMP Last administered on 06/10/18 21:44; Admin Dose 650 MG; Start 05/31/18 at 13:00 Metoclopramide HCl (Reglan) 5 mg Q6 IV Last administered on 07/03/18 05:54; Admin Dose 5 MG; Start 05/31/18 at 13:00 Collagenase (Santyl) 1 applic DAILY TOP Last administered on 07/03/18 08:42; Admin Dose 1 APPLIC; Start 06/01/18 at 09:00 Clonidine (Catapres) 0.1 mg Q6H PRN PO ELEVATED BLOOD PRESSURE Last administered on 06/17/18 05:59; Admin Dose 0.1 MG; Start 06/03/18 at 03:30 Bumetanide (Bumex) 1 mg BID DIURETICS GTB Last administered on 07/03/18 05:54; Admin Dose 1 MG; Start 06/11/18 at 18:00 Collagenase (Santyl) 1 applic PRN PRN TOP WHEN SOILED; Start 06/13/18 at 01:00 Nystatin (Nystatin Powder) 1 applic BID TOP Last administered on 07/03/18 08:42; Admin Dose 1 APPLIC; Start 06/13/18 at 14:00 Vancomycin HCl (Vancomycin Oral Syringe) 250 mg Q48H GTB Last administered on 07/01/18 17:38; Admin Dose 250 MG; Start 06/29/18 at 14:00; Stop 07/06/18 at 13:59 Epoetin Zen-epbx (RETACRIT(esrd)) 20,000 unit Tu@1700 SC Last administered on 06/30/18 17:46; Admin Dose 20,000 UNIT; Start 06/16/18 at 18:30 Miscellaneous Information 1 ea NOTE XX ; Start 06/26/18 at 08:00 Dicyclomine HCl (Bentyl) 20 mg Q8 PO Last administered on 07/03/18 05:54; Admin Dose 20 MG; Start 06/27/18 at 22:00 Cholestyramine Resin (Questran Light) 4 gm 0600,1200,1800,2300 GTB Last administered on 07/03/18 05:55; Admin Dose 4 GM; Start 06/27/18 at 18:00 Metoprolol Tartrate (Lopressor) 50 mg BID GTB Last administered on 07/03/18 08:41; Admin Dose 50 MG; Start 06/29/18 at 21:00 Amiodarone HCl (Cordarone) 200 mg DAILY GTB Last administered on 07/03/18 08 :41; Admin Dose 200 MG; Start 07/01/18 at 09:00 Lorazepam (Ativan) 0.5 mg Q4 PRN IV ANXIETY Last administered on 07/03/18 03:20; Admin Dose 0.5 MG; Start 07/01/18 at 14:00 KERON MORAN July 03, 2018 11:19
[2018-07-03] MEDS: VANCOMYCIN HCL 250 MG/5ML POSYG GTB SCH (13:21)
[2018-07-03] MEDS: morphine LIQ (10 MG/5 ML) CUP PEG PRN ×2 (13:32→22:30)
--- NOTE | 2018-07-03 14:15 | CONS ---
Assessment/Plan Assessment/Plan Hospital Course (Demo Recall) # sepsis, leukocytosis, SIRS, pulmonary, cardiac - recurrent leukocytosis due to recurrent UTI, improved - s/p septic shock due to pneumonia and C diff colitis - acute on chronic hypoxic respiratory failure, persistent - s/p reintubation 05/12/2018 - s/p re-do trach on 05/29/2018 - recurrent colonization of the anterior neck wound with ESBL+kleb, MRSA, GBS, corynebacteria on 05/06/2018, s/p meropenem - h/o pneumonia vs. colonization of the airway by pseudomonas and ESBL+klebsiella - h/o possible, recurrent HCAP due to pseudomonas and ESBL+klebsiella - h/o recurrent HCAP due to MRSA and Enterobacter (culture of tracheal aspirate on 07/16/2017 that was collected at [facility]) . Pt took vancomycin and ceftazidime - h/o decannulation prior to admission - h/o tracheostomy on 06/11/2017 - h/o SIRS from UGIB in 2018 - h/o thoracentesis on 07/18/2017, transudative (protein <2, LDH 279) - h/o bleeding from the trach site in 2018 - h/o septic shock due to pneumonia, ARDS, bacteremia, fungemia in 2018 - h/o ARDS in 2018 - h/o smoking - COPD - h/o ILD per medical record - h/o PAF, improved # GI - possible ileus or enterocolitis on CT abd/pel 06/15/2018 - C diff colitis, diagnosed on 05/11/2018. Pt's on pGT vancomycin induction followed by taper (05/11/2018-); Pt previously took IV metronidazole (05/11/2018- 05/29/2018; restart 05/30/2018-06/05/18) too - h/o intermittent diarrhea, Pt had multiple negative C. diff tests at [facility] at OSH in the past; none was positive until 05/11/2018 - dysphagia - h/o PEG placement 06/13/2018 - protein calorie malnutrition - h/o coffee ground emesis/UGIB on 12/23/2017 due to deep ulceration of distal esophagus and gastritis on EGD 12/26/2017. No e/o H. pylori - h/o possible appendicitis on CT on 11/22/2017, Pt took ertapenem (11/24/2017-12/01/2017) - h/o extensive adhesions lower abdominal and pelvis between small bowel to each other and to colon and to abdominal wall, anterior pelvic wall chronic abscess secondary to probably an old perforated diverticulitis, torsion of small bowel around these dense adhesion causing multiple obstructive points - h/o laparoscopic exploration and extensive lysis of adhesions and drainage of anterior pelvic wall abscess 09/16/2017. Cultures were negative, no e/o malignancy. 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 S/p renally dosed amikacin for klebsiella in her urine culture (06/17-06/22/2018) - UTI due to pseudomonas and ESBL+klebsiella on 06/09/2018, Pt took one dose of fosfomycin on 06/10/2018 and cipro 06/12-06/15/2018 - anasarca - started on HD on 05/15/2018, via Juan in R groin - recurrent NATHAN on CKD - 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 Her strain of CRE was sensitive to colistin, Avycaz, and Vabomere but resistant to Zerbaxa (reported on 05/19/2018) - metabolic acidosis - adrenal insufficiency - h/o vaginal bleed in 2018 - h/o colonization of urinary tract by ESBL+klebsiella, VRE - h/o recurrent, symptomatic UTI due to carbapenem-resistant kleb (MDR strain) per urine culture 10/04/17, 10/09/17, 10/21/2017, P took colistin (10/09/2017- 10/15/2017), fosfomycin for carbapenemase-producing klebsiella and VRE on 10/25/2017 and 10/28/2017 - h/o funguria - h/o urinary retention # fungemia, bacteremia 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; Pt declined surgery for MVR per outside medical records; TTE 07/01/17 did not mention any thrombus; s/p voriconazole (05/25/2017-08/01/2017) - h/o bacteremia due to MSSA and proteus s/p ceftriaxone; repeat blood cultures were negative on 06/14/2017 # musculoskeletal and dermatological - L hand pain - dry skin - chronic wound of LLE - h/o infection of wound of LLE - h/o debridement of wound of LLE on 08/06/2017 - h/o recurrent herpes labialis, Pt took acyclovir, valacyclovir - h/o Osler's nodes (eschar) of R toes with erythematous skin; desquamation of the skin and open lacerations on R plantar foot. improved. Probable manifestation of endocarditis. Pt declined MRI on 08/06/2017 - h/o infection of R toes due to pseudomonas. coagulase negative Staph likely a colonizer - h/o intertrigo of the groin, resolved with nystatin powder - h/o scabies, locally crusted lesion over L scapula, s/p permethrin cream and pGT ivermectin on 08/11/2017, 08/12/2017, 08/19/2017. Repeat skin scraping on 08/21/2017 was negative for scabies # psych, neuro - decreased hearing b/l - s/p acute toxic metabolic encephalopathy - h/o critical illness polyneuropathy - anxiety/depression, bipolar d/o, seen by Psychiatry in the past - chronic pain syndrome - h/o medical non-compliance: she would refuse her medications, treatment and straight catheterization in 2018 # hematological, vascular - chronic anemia requiring blood transfusion intermittently - macrocytic anemia - aneurysmal dilatation of the distal aorta visualized on CT 06/15/2018 - PVD Recommendations: - Monitor closely off systemic antibiotics. S/p renally dosed amikacin for klebsiella in her urine culture (06/17-06/22/2018) - Continue pGT vancomycin taper: 06/29-07/05/2018: q48hrs CASE WAS COORDINATED AND CARE DIRECTED YESTERDAY WITH CHIEF LOCK TENDER OPERATOR ARANZA FAY [employer] MESSAGING. Consultation Date/Type/Reason Admit Date/Time May 06, 2018 at 17:38 Initial Consult Date 05/10/18 Type of Consult ID Requesting Provider: ROLAND GIRON MD Date/Time of Note DATE: 07/03/18 TIME: 14:14 Exam/Review of Systems Exam Vitals Vital Signs Date Temp Pulse Resp B/P (MAP) Pulse Ox O2 O2 Flow FiO2 Time Delivery Rate 07/03/18 98.6 68 18 128/65 99 Mechanical 12:10 (86) Ventilator Trach Collar 07/03/18 30 08:30 Intake and Output 07/02/18 07/02/18 07/03/18 1515:00 23:00 07:00 IntakeIntake Total 630 ml 560 ml OutputOutput Total 1800 ml 950 ml BalanceBalance -1170 ml -390 ml Results Result Diagram: 07/01/18 0601 07/03/18 0551 Results 24hrs Laboratory Tests Test 07/03/18 05:51 Sodium Level 135 Potassium Level 4.3 Chloride Level 109 Carbon Dioxide Level 16 L Anion Gap 10 Blood Urea Nitrogen 75 H Creatinine 1.72 H Est Glomerular Filtrat Rate mL/min Glucose Level 114 Calcium Level 10.1 Phosphorus Level 4.4 Magnesium Level 2.0 Medications Medication Current Medications IV Flush (NS 10 ml) 10 ml PRN IV ; Start 05/06/18 at 20:30 Ascorbic Acid (Vitamin C) 500 mg DAILY GTB Last administered on 07/03/18at 08:41; Admin Dose 500 MG; Start 05/07/18 at 09:00 Albuterol/ Ipratropium (Duoneb) 3 ml Q2H RESP THERAPY PRN HHN SHORTNESS OF BREATH Last administered on 06/30/18at 19:30; Admin Dose 3 ML; Start 05/06/18 at 23:30 Zinc Sulfate (Zinc Sulfate) 220 mg DAILY GTB Last administered on 07/03/18at 08:41; Admin Dose 220 MG; Start 05/07/18 at 09:00 Ondansetron HCl (Zofran Tab) 4 mg Q6H PRN GTB NAUSEA AND/OR VOMITING Last administered on 05/31/18 16:47; Admin Dose 4 MG; Start 05/07/18 at 00:15 Multivitamins (Multivitamin) 30 ml DAILY GTB Last administered on 07/03/18 08:41; Admin Dose 30 ML; Start 05/07/18 at 09:00 Miscellaneous Information (Pending Santyl Order For Wound Care) This patient goldman... PRN PRN XX WOUND CARE; Start 05/09/18 at 17:00 Spironolactone (Aldactone) 50 mg DAILY GTB Last administered on 07/03/18 08:41; Admin Dose 50 MG; Start 05/21/18 at 09:00 Famotidine (Pepcid) 20 mg DAILY PEG Last administered on 07/03/18 08:41; Admin Dose 20 MG; Start 05/23/18 at 09:00 Morphine Sulfate (morphine) 6 mg Q4H PRN PEG SEVERE PAIN LEVEL 7-10 Last administered on 07/03/18 13:32; Admin Dose 6 MG; Start 05/22/18 at 17:00 Acetaminophen (Tylenol Tab) 650 mg Q4H PRN PO MILD PAIN(1-3)OR ELEVATED TEMP Last administered on 06/10/18 21:44; Admin Dose 650 MG; Start 05/31/18 at 13:00 Metoclopramide HCl (Reglan) 5 mg Q6 IV Last administered on 07/03/18 13:21; Admin Dose 5 MG; Start 05/31/18 at 13:00 Collagenase (Santyl) 1 applic DAILY TOP Last administered on 07/03/18 08:42; Admin Dose 1 APPLIC; Start 06/01/18 at 09:00 Clonidine (Catapres) 0.1 mg Q6H PRN PO ELEVATED BLOOD PRESSURE Last administered on 06/17/18 05:59; Admin Dose 0.1 MG; Start 06/03/18 at 03:30 Bumetanide (Bumex) 1 mg BID DIURETICS GTB Last administered on 07/03/18 05:54; Admin Dose 1 MG; Start 06/11/18 at 18:00 Collagenase (Santyl) 1 applic PRN PRN TOP WHEN SOILED; Start 06/13/18 at 01:00 Nystatin (Nystatin Powder) 1 applic BID TOP Last administered on 07/03/18 08:42; Admin Dose 1 APPLIC; Start 06/13/18 at 14:00 Vancomycin HCl (Vancomycin Oral Syringe) 250 mg Q48H GTB Last administered on 07/03/18 13:21; Admin Dose 250 MG; Start 06/29/18 at 14:00; Stop 07/06/18 at 13:59 Epoetin Zen-epbx (RETACRIT(esrd)) 20,000 unit Tu@1700 SC Last administered on 06/30/18 17:46; Admin Dose 20,000 UNIT; Start 06/16/18 at 18:30 Miscellaneous Information 1 ea NOTE XX ; Start 06/26/18 at 08:00 Dicyclomine HCl (Bentyl) 20 mg Q8 PO Last administered on 07/03/18 13:21; Admin Dose 20 MG; Start 06/27/18 at 22:00 Cholestyramine Resin (Questran Light) 4 gm 0600,1200,1800,2300 GTB Last administered on 07/03/18 13:21; Admin Dose 4 GM; Start 06/27/18 at 18:00 Metoprolol Tartrate (Lopressor) 50 mg BID GTB Last administered on 07/03/18 08:41; Admin Dose 50 MG; Start 06/29/18 at 21:00 Amiodarone HCl (Cordarone) 200 mg DAILY GTB Last administered on 07/03/18 08:41; Admin Dose 200 MG; Start 07/01/18 at 09:00 Lorazepam (Ativan) 0.5 mg Q4 PRN IV ANXIETY Last administered on 07/03/18 03:20; Admin Dose 0.5 MG; Start 07/01/18 at 14:00 MANN VALDEZ MD July 03, 2018 14:15
[2018-07-04] VITALS (21 sets, daily range): BP systolic 101–176; BP diastolic 57–86; PULSE 67–107; RESP 20–31
[2018-07-04] MEDS: CHOLESTYRAMINE (LIGHT) 4 GM PACKET GTB SCH ×4 (05:39→23:40)
[2018-07-04] MEDS: DICYCLOMINE 10 MG CAP PO SCH ×3 (05:54→22:01)
[2018-07-04] MEDS: BUMETANIDE 1 MG TAB GTB SCH ×2 (05:54→17:27)
[2018-07-04] MEDS: METOCLOPRAMIDE 10 MG INJ IV SCH ×4 (05:54→23:35)
[2018-07-04] MEDS: MULTIVITAMINS 30 ML CUP GTB SCH (08:30)
[2018-07-04] MEDS: ZINC SULFATE 220 MG CAP GTB SCH (08:30)
[2018-07-04] MEDS: METOPROLOL 50 MG TAB GTB SCH ×2 (08:30→20:45)
[2018-07-04] MEDS: FAMOTIDINE 20 MG TAB PEG SCH (08:30)
[2018-07-04] MEDS: ASCORBIC ACID 500 MG TAB GTB SCH (08:31)
[2018-07-04] MEDS: SPIRONOLACTONE 25 MG TAB GTB SCH (08:31)
[2018-07-04] MEDS: AMIODARONE 200 MG TAB GTB SCH (08:31)
[2018-07-04] MEDS: COLLAGENASE 5 GM (UD JAR) TOP SCH (08:33)
[2018-07-04] MEDS: BALSAM PERU/CASTOR OIL 60 GM TUBE TOP SCH ×2 (08:33→20:47)
[2018-07-04] MEDS: NYSTATIN 30 GM POWDER BTL TOP SCH ×2 (08:33→20:46)
--- NOTE | 2018-07-04 09:06 | CONS ---
Assessment/Plan Assessment/Plan Hospital Course (Demo Recall) # sepsis, leukocytosis, SIRS, pulmonary, cardiac - recurrent leukocytosis due to recurrent UTI, improved - s/p septic shock due to pneumonia and C diff colitis - acute on chronic hypoxic respiratory failure, persistent - s/p reintubation 05/12/2018 - s/p re-do trach on 05/29/2018 - recurrent colonization of the anterior neck wound with ESBL+kleb, MRSA, GBS, corynebacteria on 05/06/2018, s/p meropenem - h/o pneumonia vs. colonization of the airway by pseudomonas and ESBL+klebsiella - h/o possible, recurrent HCAP due to pseudomonas and ESBL+klebsiella - h/o recurrent HCAP due to MRSA and Enterobacter (culture of tracheal aspirate on 07/16/2017 that was collected at [facility]) . Pt took vancomycin and ceftazidime - h/o decannulation prior to admission - h/o tracheostomy on 06/11/2017 - h/o SIRS from UGIB in 2018 - h/o thoracentesis on 07/18/2017, transudative (protein <2, LDH 279) - h/o bleeding from the trach site in 2018 - h/o septic shock due to pneumonia, ARDS, bacteremia, fungemia in 2018 - h/o ARDS in 2018 - h/o smoking - COPD - h/o ILD per medical record - h/o PAF, improved # GI - possible ileus or enterocolitis on CT abd/pel 06/15/2018 - C diff colitis, diagnosed on 05/11/2018. Pt's on pGT vancomycin induction followed by taper (05/11/2018-); Pt previously took IV metronidazole (05/11/2018- 05/29/2018; restart 05/30/2018-06/05/18) too - h/o intermittent diarrhea, Pt had multiple negative C. diff tests at [facility] at OSH in the past; none was positive until 05/11/2018 - dysphagia - h/o PEG placement 06/13/2018 - protein calorie malnutrition - h/o coffee ground emesis/UGIB on 12/23/2017 due to deep ulceration of distal esophagus and gastritis on EGD 12/26/2017. No e/o H. pylori - h/o possible appendicitis on CT on 11/22/2017, Pt took ertapenem (11/24/2017- 12/01/2017) - h/o extensive adhesions lower abdominal and pelvis between small bowel to each other and to colon and to abdominal wall, anterior pelvic wall chronic abscess secondary to probably an old perforated diverticulitis, torsion of small bowel around these dense adhesion causing multiple obstructive points - h/o laparoscopic exploration and extensive lysis of adhesions and drainage of anterior pelvic wall abscess 09/16/2017. Cultures were negative, no e/o malignancy. 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 S/p renally dosed amikacin for klebsiella in her urine culture (06/17-06/22/2018) - UTI due to pseudomonas and ESBL+klebsiella on 06/09/2018, Pt took one dose of fosfomycin on 06/10/2018 and cipro 06/12-06/15/2018 - anasarca - started on HD on 05/15/2018, via Juan in R groin - recurrent NATHAN on CKD - 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 Her strain of CRE was sensitive to colistin, Avycaz, and Vabomere but resistant to Zerbaxa (reported on 05/19/2018) - metabolic acidosis - adrenal insufficiency - h/o vaginal bleed in 2018 - h/o colonization of urinary tract by ESBL+klebsiella, VRE - h/o recurrent, symptomatic UTI due to carbapenem-resistant kleb (MDR strain) per urine culture 10/04/17, 10/09/17, 10/21/2017, P took colistin (10/09/2017- 10/15/2017), fosfomycin for carbapenemase-producing klebsiella and VRE on 10/25/2017 and 10/28/2017 - h/o funguria - h/o urinary retention # fungemia, bacteremia 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; Pt declined surgery for MVR per outside medical records; TTE 07/01/17 did not mention any thrombus; s/p voriconazole (05/25/2017-08/01/2017) - h/o bacteremia due to MSSA and proteus s/p ceftriaxone; repeat blood cultures were negative on 06/14/2017 # musculoskeletal and dermatological - L hand pain - dry skin - chronic wound of LLE - h/o infection of wound of LLE - h/o debridement of wound of LLE on 08/06/2017 - h/o recurrent herpes labialis, Pt took acyclovir, valacyclovir - h/o Osler's nodes (eschar) of R toes with erythematous skin; desquamation of the skin and open lacerations on R plantar foot. improved. Probable manifestation of endocarditis. Pt declined MRI on 08/06/2017 - h/o infection of R toes due to pseudomonas. coagulase negative Staph likely a colonizer - h/o intertrigo of the groin, resolved with nystatin powder - h/o scabies, locally crusted lesion over L scapula, s/p permethrin cream and pGT ivermectin on 08/11/2017, 08/12/2017, 08/19/2017. Repeat skin scraping on 08/22/19 was negative for scabies # psych, neuro - decreased hearing b/l - s/p acute toxic metabolic encephalopathy - h/o critical illness polyneuropathy - anxiety/depression, bipolar d/o, seen by Psychiatry in the past - chronic pain syndrome - h/o medical non-compliance: she would refuse her medications, treatment and straight catheterization in 2018 # hematological, vascular - chronic anemia requiring blood transfusion intermittently - macrocytic anemia - aneurysmal dilatation of the distal aorta visualized on CT 06/15/2018 - PVD Recommendations: - Monitor closely off systemic antibiotics. S/p renally dosed amikacin for klebsiella in her urine culture (06/17-06/22/2018) - Continue pGT vancomycin taper: 06/29-07/05/2018: q48hrs Plan was d/w Dr. Doyle via [employer] messaging. Thank you Consultation Date/Type/Reason Admit Date/Time May 06, 2018 at 17:38 Initial Consult Date 05/07/18 Type of Consult ID Requesting Provider: ROLAND GIRON MD Date/Time of Note DATE: 07/04/18 TIME: 09:05 24 HR Interval Summary Free Text/Dictation The patient awakened during assessment and didn't answer any of my questions. I asked if she's in pain and she stated "I don't know." Then closed her eyes. No acute issues were reported by nursing and patient has remained afebrile. Exam/Review of Systems Exam Vitals Vital Signs Date Temp Pulse Resp B/P (MAP) Pulse Ox O2 O2 Flow FiO2 Time Delivery Rate 07/04/18 77 08:42 07/04/18 98.0 20 132/59 100 Mechanical 08:10 (83) Ventilator Trach Collar 07/04/18 30 05:42 Allergies Coded Allergies shellfish derived (Unverified Allergy, Unknown, 05/06/18) Intake and Output 07/03/18 07/03/18 07/04/18 1515:00 23:00 07:00 IntakeIntake Total 530 ml 630 ml OutputOutput Total 1800 ml 900 ml BalanceBalance -1270 ml -270 ml Exam Constitutional: well developed, non-verbal, frail, obese, other (chronically debilitated, sleeping, easily awakened, then closed her eyes again) Head: normocephalic, atraumatic Eyes: nl conjunctiva, nl lids, nl sclera ENMT: nl external ears & nose, nl nasal mucosa & septum Neck: supple, non-tender, other (on vent via trach, trach midline, site is c/d/i) Respiratory: normal air movement, diminished breath sounds (bilaterally, anteriorly); No wheezing Cardiovascular: regular rate and rhythm, nl pulses Gastrointestinal: soft, non-tender, bowel sounds (normoactive ), other (PEG site c/d/i, connected to TF); No distended, No firm Genitourinary - Female: other (F/c draining yellow urine. HD catheter R groin, site is c/d/i; +Intertrigo of groin) Musculoskeletal: muscle weakness, other (julia foot drop) Extremities: normal pulses, edema (BUE, BLE); No tenderness Neurological: other (alert, follows simple commands, able to questions by mouthing words and shaking head yes or no) Skin: nl turgor, other (Reviewed nsg notes/photos. LLE dressing c/d/i) Results Result Diagram: 07/01/18 0601 07/03/18 0551 Medications Medication Current Medications IV Flush (NS 10 ml) 10 ml PRN IV ; Start 05/06/18 at 20:30 Ascorbic Acid (Vitamin C) 500 mg DAILY GTB Last administered on 07/04/18 08:31; Admin Dose 500 MG; Start 05/07/18 at 09:00 Albuterol/ Ipratropium (Duoneb) 3 ml Q2H RESP THERAPY PRN HHN SHORTNESS OF BREATH Last administered on 06/30/18 19:30; Admin Dose 3 ML; Start 05/06/18 at 23:30 Zinc Sulfate (Zinc Sulfate) 220 mg DAILY GTB Last administered on 07/04/18 08:30; Admin Dose 220 MG; Start 05/07/18 at 09:00 Ondansetron HCl (Zofran Tab) 4 mg Q6H PRN GTB NAUSEA AND/OR VOMITING Last administered on 05/31/18 16:47; Admin Dose 4 MG; Start 05/07/18 at 00:15 Multivitamins (Multivitamin) 30 ml DAILY GTB Last administered on 07/04/18 08:30; Admin Dose 30 ML; Start 05/07/18 at 09:00 [facility] This patient goldman... PRN PRN XX WOUND CARE; Start 05/09/18 at 17:00 Spironolactone (Aldactone) 50 mg DAILY GTB Last administered on 07/04/18 08:31; Admin Dose 50 MG; Start 05/21/18 at 09:00 Famotidine (Pepcid) 20 mg DAILY PEG Last administered on 07/04/18 08:30; Admin Dose 20 MG; Start 05/23/18 at 09:00 Morphine Sulfate (morphine) 6 mg Q4H PRN PEG SEVERE PAIN LEVEL 7-10 Last administered on 07/03/18 22:30; Admin Dose 6 MG; Start 05/22/18 at 17:00 Acetaminophen (Tylenol Tab) 650 mg Q4H PRN PO MILD PAIN(1-3)OR ELEVATED TEMP Last administered on 06/10/18 21:44; Admin Dose 650 MG; Start 05/31/18 at 13:00 Metoclopramide HCl (Reglan) 5 mg Q6 IV Last administered on 07/04/18 05:54; Admin Dose 5 MG; Start 05/31/18 at 13:00 Collagenase (Santyl) 1 applic DAILY TOP Last administered on 07/04/18 08:33; Admin Dose 1 APPLIC; Start 06/01/18 at 09:00 Clonidine (Catapres) 0.1 mg Q6H PRN PO ELEVATED BLOOD PRESSURE Last administered on 06/17/18 05:59; Admin Dose 0.1 MG; Start 06/03/18 at 03:30 Bumetanide (Bumex) 1 mg BID DIURETICS GTB Last administered on 07/04/18 05:5 4; Admin Dose 1 MG; Start 06/11/18 at 18:00 Collagenase (Santyl) 1 applic PRN PRN TOP WHEN SOILED; Start 06/13/18 at 01:00 Nystatin (Nystatin Powder) 1 applic BID TOP Last administered on 07/04/18 08:33; Admin Dose 1 APPLIC; Start 06/13/18 at 14:00 Vancomycin HCl (Vancomycin Oral Syringe) 250 mg Q48H GTB Last administered on 07/03/18 13:21; Admin Dose 250 MG; Start 06/29/18 at 14:00; Stop 07/06/18 at 13:59 Epoetin Zen-epbx (RETACRIT(esrd)) 20,000 unit Tu@1700 SC Last administered on 06/30/18 17:46; Admin Dose 20,000 UNIT; Start 06/16/18 at 18:30 Miscellaneous Information 1 ea NOTE XX ; Start 06/26/18 at 08:00 Dicyclomine HCl (Bentyl) 20 mg Q8 PO Last administered on 07/04/18 05:54; Admin Dose 20 MG; Start 06/27/18 at 22:00 Cholestyramine Resin (Questran Light) 4 gm 0600,1200,1800,2300 GTB Last administered on 07/04/18 05:39; Admin Dose 4 GM; Start 06/27/18 at 18:00 Metoprolol Tartrate (Lopressor) 50 mg BID GTB Last administered on 07/04/18 08:30; Admin Dose 50 MG; Start 06/29/18 at 21:00 Amiodarone HCl (Cordarone) 200 mg DAILY GTB Last administered on 07/04/18 08:31; Admin Dose 200 MG; Start 07/01/18 at 09:00 Lorazepam (Ativan) 0.5 mg Q4 PRN IV ANXIETY Last administered on 07/03/18at 17:32; Admin Dose 0.5 MG; Start 07/01/18 at 14:00 KENA MÉNDEZ NP July 04, 2018 09:06
--- NOTE | 2018-07-04 09:52 | CONS ---
Assessment/Plan Assessment/Plan Assessment/Plan (Daily) 1. ABD pain better -CT of abd 2. Renal failure.- 3. Vent dependent resp failure 4. Chronic obstructive pulmonary disease. 5. Bipolar. 6. Paroxysmal atrial fibrillation. 7. Anemia of chronic disease. 8. CHF 9. Diarrhea 11. Diarrhea -s/p c diff colitis -taper off of vanco -resolved 12. H/O deep esophageal ulcer 13. Dysphagia with g tube 14. Anemia of chronic disease 15. UTI with positive cx CT of abd/pelvis 06/16 1. Nonspecific bibasilar ground-glass densities and the airspace disease, suggesting bilateral pneumonia versus pulmonary edema. 2. Atrophy of the left kidney. 2.3 cm left renal cyst. The right kidney demonstrates compensatory hypertrophy. No calculus or hydronephrosis in either kidney. 3. Atherosclerosis of the aorta. 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 No leak or rupture. 4. Mild nonspecific ascites in the pelvis. 5. Air-fluid levels are seen throughout the small bowel and colon. Consider mild ileus versus enterocolitis. PLAN: Continue with reglan and pepcid and bentyl patient has no abdominal pain she has a generalized body ache Consultation Date/Type/Reason Admit Date/Time May 06, 2018 at 17:38 Initial Consult Date 05/10/18 Requesting Provider: ROLAND GIRON MD Date/Time of Note DATE: 07/04/18 TIME: 09:51 24 HR Interval Summary Constitutional: improved Exam/Review of Systems Exam Vitals Vital Signs Date Temp Pulse Resp B/P (MAP) Pulse Ox O2 O2 Flow FiO2 Time Delivery Rate 07/04/18 77 08:42 07/04/18 98.0 20 132/59 100 Mechanical 08:10 (83) Ventilator Trach Collar 07/04/18 30 05:42 Intake and Output 07/03/18 07/03/18 07/04/18 1414:59 22:59 06:59 IntakeIntake Total 530 ml 630 ml OutputOutput Total 1800 ml 900 ml BalanceBalance -1270 ml -270 ml Constitutional: alert, oriented ENMT: intubated Respiratory: diminished breath sounds Cardiovascular: regular rate and rhythm, nl pulses Gastrointestinal: soft, nl liver, spleen, non-tender Extremities: normal pulses Results Result Diagram: 07/01/18 0601 07/03/18 0551 Medications Medication Current Medications IV Flush (NS 10 ml) 10 ml PRN IV ; Start 05/06/18 at 20:30 Ascorbic Acid (Vitamin C) 500 mg DAILY GTB Last administered on 07/04/18 08:31; Admin Dose 500 MG; Start 05/07/18 at 09:00 Albuterol/ Ipratropium (Duoneb) 3 ml Q2H RESP THERAPY PRN HHN SHORTNESS OF BREATH Last administered on 06/30/18 19:30; Admin Dose 3 ML; Start 05/06/18 at 23:30 Zinc Sulfate (Zinc Sulfate) 220 mg DAILY GTB Last administered on 07/04/18 08:30; Admin Dose 220 MG; Start 05/07/18 at 09:00 Ondansetron HCl (Zofran Tab) 4 mg Q6H PRN GTB NAUSEA AND/OR VOMITING Last administered on 05/31/18 16:47; Admin Dose 4 MG; Start 05/07/18 at 00:15 Multivitamins (Multivitamin) 30 ml DAILY GTB Last administered on 07/04/18 08:30; Admin Dose 30 ML; Start 05/07/18 at 09:00 Miscellaneous Information (Pending [facility] Order For Wound Care) This patient goldman... PRN PRN XX WOUND CARE; Start 05/09/18 at 17:00 Spironolactone (Aldactone) 50 mg DAILY GTB Last administered on 07/04/18 08:31; Admin Dose 50 MG; Start 05/21/18 at 09:00 Famotidine (Pepcid) 20 mg DAILY PEG Last administered on 07/04/18 08:30; Admin Dose 20 MG; Start 05/23/18 at 09:00 Morphine Sulfate (morphine) 6 mg Q4H PRN PEG SEVERE PAIN LEVEL 7-10 Last administered on 07/03/18 22:30; Admin Dose 6 MG; Start 05/22/18 at 17:00 Acetaminophen (Tylenol Tab) 650 mg Q4H PRN PO MILD PAIN(1-3)OR ELEVATED TEMP Last administered on 06/10/18 21:44; Admin Dose 650 MG; Start 05/31/18 at 13:00 Metoclopramide HCl (Reglan) 5 mg Q6 IV Last administered on 07/04/18 05:54; Admin Dose 5 MG; Start 05/31/18 at 13:00 Collagenase (Santyl) 1 applic DAILY TOP Last administered on 07/04/18 08:33; Admin Dose 1 APPLIC; Start 06/01/18 at 09:00 Clonidine (Catapres) 0.1 mg Q6H PRN PO ELEVATED BLOOD PRESSURE Last administered on 06/17/18 05:59; Admin Dose 0.1 MG; Start 06/03/18 at 03:30 Bumetanide (Bumex) 1 mg BID DIURETICS GTB Last administered on 07/04/18 05:54; Admin Dose 1 MG; Start 06/11/18 at 18:00 Collagenase (Santyl) 1 applic PRN PRN TOP WHEN SOILED; Start 06/13/18 at 01:00 Nystatin (Nystatin Powder) 1 applic BID TOP Last administered on 07/04/18 08:33; Admin Dose 1 APPLIC; Start 06/13/18 at 14:00 Vancomycin HCl (Vancomycin Oral Syringe) 250 mg Q48H GTB Last administered on 07/03/18 13:21; Admin Dose 250 MG; Start 06/29/18 at 14:00; Stop 07/06/18 at 13:59 Epoetin Zen-epbx (RETACRIT(esrd)) 20,000 unit Tu@1700 SC Last administered on 06/30/18at 17:46; Admin Dose 20,000 UNIT; Start 06/16/18 at 18:30 Miscellaneous Information 1 ea NOTE XX ; Start 06/26/18 at 08:00 Dicyclomine HCl (Bentyl) 20 mg Q8 PO Last administered on 07/04/18 05:54; Admin Dose 20 MG; Start 06/27/18 at 22:00 Cholestyramine Resin (Questran Light) 4 gm 0600,1200,1800,2300 GTB Last administered on 07/04/18 05:39; Admin Dose 4 GM; Start 06/27/18 at 18:00 Metoprolol Tartrate (Lopressor) 50 mg BID GTB Last administered on 07/04/18 08:30; Admin Dose 50 MG; Start 06/29/18 at 21:00 Amiodarone HCl (Cordarone) 200 mg DAILY GTB Last administered on 5/18/19at 08:31; Admin Dose 200 MG; Start 07/01/18 at 09:00 Lorazepam (Ativan) 0.5 mg Q4 PRN IV ANXIETY Last administered on 07/03/18at 17:32; Admin Dose 0.5 MG; Start 07/01/18 at 14:00 QUINTEN UMAÑA MD July 04, 2018 09:52
--- NOTE | 2018-07-04 10:25 | PN ---
DATE: 07/04/2018 SUBJECTIVE: The patient is stable, no events overnight. No fevers, chills, nausea, vomiting. OBJECTIVE: VITAL SIGNS: Blood pressure is 132/52, pulse 77, temperature 98.0. HEENT: Head is normocephalic. NECK: Supple. HEART: Regular rate. LUNGS: Show diminished breath sounds at the base. ABDOMEN: Soft, nontender to palpation without rebound or guarding. EXTREMITIES: Negative for clubbing, cyanosis. Trace edema. DERMATOLOGIC: No rashes. MUSCULOSKELETAL: No joint effusions. NEUROLOGIC: No change in exam. MEDICATIONS: The patient's medications have been reviewed. LABORATORY DATA: Has been reviewed. IMAGING STUDIES: Have been reviewed. ASSESSMENT AND PLAN: 1. Nonoliguric acute kidney injury on top of chronic kidney disease stage IIIB/IV with previous base line creatinine 2.0 mg/dL. Etiology of acute kidney injury secondary to acute tubular necrosis. Giovanni al function stabilized. Continue to monitor. 2. Volume overload, stable. Continue Bumex. 3. Hyponatremia, resolved. 4. Hypomagnesemia. Continue to monitor and replete. 5. Anemia. Monitor hemoglobin and hematocrit levels. 6. Mineral bone disorder. Monitor calcium and phosphorus levels. 7. Ventilatory dependent respiratory failure. Vent settings have been reviewed. Continue to monito r. 8. Sepsis, status post shock. The patient is completing antibiotic course. 9. C.dif. Continue vancomycin. 10. Lower extremity wounds. Continue wound care. 11. Dysphagia. Continue tube feeding. 12. Encephalopathy, improving. Dictated By: JEANA FINE/NTS Conf#: [id number] DID#: [id number] CC: QUINTEN UMAÑA MD; ROLAND GIRON MD;*EndCC*
--- NOTE | 2018-07-04 11:22 | PN ---
Date/Time of Note Date/Time of Note DATE: 07/04/18 TIME: 11:21 Assessment/Plan VTE Prophylaxis Risk score (from [facility])>0 risk: 4 SCD applied (from Ns): Yes Pharmacological prophylaxis: LMWH Lines/Catheters IV Catheter Type (from [facility]): PICC Line Central line still needed: Yes Urinary Cath still in place: Yes Reason Cath still needed: skin wounds contaminated by urine Assessment/Plan Hospital Course -MDR Klebsiella urinary tract infection, completed treatment with amikacin. Dr. Doyle is following in infectious consultation. -Atrial fibrillation was rapid ventricular response, patient remains in sinus rhythm continue metoprolol and amiodarone. Dr. Scanlon is following in cardiology consultation. -S/p septic shock secondary to urinary tract infection, anterior neck soft tissue infection, and C. difficile colitis. -C-diff colitis, continue G-tube Vanco at the taper doses, -Acute respiratory failure requiring intubation and ventilatory support. Dr. Lambert is following in pulmonology consultation. -S/p tracheostomy on 05/29/18. -Acute kidney injury on chronic kidney disease. Started on HD this admission. Tio Mckeon is following in nephrology consultation. -Anemia of chronic inflammation, stool for OB is negative, status post blood transfusion. Continue Epogen. -Metabolic acidosis, resolved. -Acute diastolic congestive heart failure. -Paroxysmal atrial fibrillation -COPD -Dysphagia with PEG. -G-tube mild malfunction, changed by GI Dr. Carolina is following in gastroenterology consultation. -Obesity Result Diagram: 07/01/18 0601 07/03/18 0551 Subjective 24 Hr Interval Summary Free Text/Dictation Patient remain comfortable, sedated, on vent Exam/Review of Systems Exam Vitals Vital Signs Date Temp Pulse Resp B/P (MAP) Pulse Ox O2 O2 Flow FiO2 Time Delivery Rate 07/04/18 98.1 72 20 127/57 99 Mechanical 10:45 (80) Ventilator Trach Collar 07/04/18 30 08:44 Intake and Output 07/03/18 07/03/18 07/04/18 1515:00 23:00 07:00 IntakeIntake Total 530 ml 630 ml OutputOutput Total 1800 ml 900 ml BalanceBalance -1270 ml -270 ml Constitutional: well developed Head: normocephalic, atraumatic Neck: supple Respiratory: diminished breath sounds Cardiovascular: regular rate and rhythm Gastrointestinal: soft, non-tender Extremities: normal pulses Medications Medication Current Medications IV Flush (NS 10 ml) 10 ml PRN IV ; Start 05/06/18 at 20:30 Ascorbic Acid (Vitamin C) 500 mg DAILY GTB Last administered on 07/04/18 08:3 1; Admin Dose 500 MG; Start 05/07/18 at 09:00 Albuterol/ Ipratropium (Duoneb) 3 ml Q2H RESP THERAPY PRN HHN SHORTNESS OF BREATH Last administered on 06/30/18 19:30; Admin Dose 3 ML; Start 05/06/18 at 23:30 Zinc Sulfate (Zinc Sulfate) 220 mg DAILY GTB Last administered on 07/04/18 08:30; Admin Dose 220 MG; Start 05/07/18 at 09:00 Ondansetron HCl (Zofran Tab) 4 mg Q6H PRN GTB NAUSEA AND/OR VOMITING Last administered on 05/31/18 16:47; Admin Dose 4 MG; Start 05/07/18 at 00:15 Multivitamins (Multivitamin) 30 ml DAILY GTB Last administered on 07/04/18 08:30; Admin Dose 30 ML; Start 05/07/18 at 09:00 [facility] This patient goldman... PRN PRN XX WOUND CARE; Start 05/09/18 at 17:00 Spironolactone (Aldactone) 50 mg DAILY GTB Last administered on 07/04/18 08:31; Admin Dose 50 MG; Start 05/21/18 at 09:00 Famotidine (Pepcid) 20 mg DAILY PEG Last administered on 07/04/18 08:30; Admin Dose 20 MG; Start 05/23/18 at 09:00 Morphine Sulfate (morphine) 6 mg Q4H PRN PEG SEVERE PAIN LEVEL 7-10 Last administered on 07/03/18 22:30; Admin Dose 6 MG; Start 05/22/18 at 17:00 Acetaminophen (Tylenol Tab) 650 mg Q4H PRN PO MILD PAIN(1-3)OR ELEVATED TEMP Last administered on 06/10/18 21:44; Admin Dose 650 MG; Start 05/31/18 at 13:00 Metoclopramide HCl (Reglan) 5 mg Q6 IV Last administered on 07/04/18 05:54; Admin Dose 5 MG; Start 05/31/18 at 13:00 Collagenase (Santyl) 1 applic DAILY TOP Last administered on 07/04/18 08:33; Admin Dose 1 APPLIC; Start 06/01/18 at 09:00 Clonidine (Catapres) 0.1 mg Q6H PRN PO ELEVATED BLOOD PRESSURE Last ad ministered on 06/17/18 05:59; Admin Dose 0.1 MG; Start 06/03/18 at 03:30 Bumetanide (Bumex) 1 mg BID DIURETICS GTB Last administered on 07/04/18 05:54; Admin Dose 1 MG; Start 06/11/18 at 18:00 Collagenase (Santyl) 1 applic PRN PRN TOP WHEN SOILED; Start 06/13/18 at 01:00 Nystatin (Nystatin Powder) 1 applic BID TOP Last administered on 07/04/18 08:33; Admin Dose 1 APPLIC; Start 06/13/18 at 14:00 Vancomycin HCl (Vancomycin Oral Syringe) 250 mg Q48H GTB Last administered on 07/03/18 13:21; Admin Dose 250 MG; Start 06/29/18 at 14:00; Stop 07/06/18 at 13:59 Epoetin Zen-epbx (RETACRIT(esrd)) 20,000 unit Tu@1700 SC Last administered on 06/30/18at 17:46; Admin Dose 20,000 UNIT; Start 06/16/18 at 18:30 Miscellaneous Information 1 ea NOTE XX ; Start 06/26/18 at 08:00 Dicyclomine HCl (Bentyl) 20 mg Q8 PO Last administered on 07/04/18 05:54; Admin Dose 20 MG; Start 06/27/18 at 22:00 Cholestyramine Resin (Questran Light) 4 gm 0600,1200,1800,2300 GTB Last administered on 07/04/18 05:39; Admin Dose 4 GM; Start 06/27/18 at 18:00 Metoprolol Tartrate (Lopressor) 50 mg BID GTB Last administered on 07/04/18 08:30; Admin Dose 50 MG; Start 06/29/18 at 21:00 Amiodarone HCl (Cordarone) 200 mg DAILY GTB Last administered on 07/04/18at 08:31; Admin Dose 200 MG; Start 07/01/18 at 09:00 Lorazepam (Ativan) 0.5 mg Q4 PRN IV ANXIETY Last administered on 07/03/18at 17:32; Admin Dose 0.5 MG; Start 07/01/18 at 14:00 STEPHANIE BAL July 04, 2018 11:22
[2018-07-04] MEDS: morphine LIQ (10 MG/5 ML) CUP PEG PRN (18:05)
[2018-07-05] VITALS (22 sets, daily range): BP systolic 130–157; BP diastolic 65–98; PULSE 76–100; RESP 18–32
[2018-07-05] MEDS: CHOLESTYRAMINE (LIGHT) 4 GM PACKET GTB SCH ×4 (05:27→22:35)
[2018-07-05] MEDS: DICYCLOMINE 10 MG CAP PO SCH ×3 (05:27→22:31)
[2018-07-05] MEDS: METOCLOPRAMIDE 10 MG INJ IV SCH ×3 (05:27→18:04)
[2018-07-05] MEDS: morphine LIQ (10 MG/5 ML) CUP PEG PRN (05:27)
[2018-07-05] MEDS: BUMETANIDE 1 MG TAB GTB SCH ×2 (05:27→18:04)
--- NOTE | 2018-07-05 06:48 | EN ---
Date/Time of Note Date/Time of Note DATE: 07/05/18 TIME: 06:47 Event Note Medicine Medicine Event Note EMR reviewed. I coordinated and directed care with FRUIT CANNER yesterday via Telemediq. Please reference telemediq logs. I will review and direct care today. MANN VALDEZ MD July 05, 2018 06:48
[2018-07-05] MEDS: MULTIVITAMINS 30 ML CUP GTB SCH (08:56)
[2018-07-05] MEDS: ASCORBIC ACID 500 MG TAB GTB SCH (08:58)
[2018-07-05] MEDS: METOPROLOL 50 MG TAB GTB SCH ×2 (08:58→22:32)
[2018-07-05] MEDS: SPIRONOLACTONE 25 MG TAB GTB SCH (08:58)
[2018-07-05] MEDS: AMIODARONE 200 MG TAB GTB SCH ×2 (08:59→22:32)
[2018-07-05] MEDS: BALSAM PERU/CASTOR OIL 60 GM TUBE TOP SCH ×2 (08:59→22:33)
[2018-07-05] MEDS: COLLAGENASE 5 GM (UD JAR) TOP SCH (08:59)
[2018-07-05] MEDS: FAMOTIDINE 20 MG TAB PEG SCH (08:59)
[2018-07-05] MEDS: ZINC SULFATE 220 MG CAP GTB SCH (08:59)
[2018-07-05] MEDS: NYSTATIN 30 GM POWDER BTL TOP SCH ×2 (09:00→22:33)
--- NOTE | 2018-07-05 10:51 | CONS ---
Assessment/Plan Assessment/Plan Assessment/Plan (Daily) # sepsis, leukocytosis, SIRS, pulmonary, cardiac - recurrent leukocytosis due to recurrent UTI, improved - s/p septic shock due to pneumonia and C diff colitis - acute on chronic hypoxic respiratory failure, persistent - s/p reintubation 05/12/2018 - s/p re-do trach on 05/29/2018 - recurrent colonization of the anterior neck wound with ESBL+kleb, MRSA, GBS, corynebacteria on 05/06/2018, s/p meropenem - h/o pneumonia vs. colonization of the airway by pseudomonas and ESBL+klebsiella - h/o possible, recurrent HCAP due to pseudomonas and ESBL+klebsiella - h/o recurrent HCAP due to MRSA and Enterobacter (culture of tracheal aspirate on 07/16/2017 that was collected at [facility]) . Pt took vancomycin and ceftazidime - h/o decannulation prior to admission - h/o tracheostomy on 06/11/2017 - h/o SIRS from UGIB in 2018 - h/o thoracentesis on 07/18/2017, transudative (protein <2, LDH 279) - h/o bleeding from the trach site in 2018 - h/o septic shock due to pneumonia, ARDS, bacteremia, fungemia in 2018 - h/o ARDS in 2018 - h/o smoking - COPD - h/o ILD per medical record - h/o PAF, improved # GI - possible ileus or enterocolitis on CT abd/pel 06/15/2018 - C diff colitis, diagnosed on 05/11/2018. Pt's on pGT vancomycin induction followed by taper (05/11/2018-); Pt previously took IV metronidazole (05/11/2018- 05/29/2018; restart 05/30/2018-06/05/18) too - h/o intermittent diarrhea, Pt had multiple negative C. diff tests at [facility] at OSH in the past; none was positive until 05/11/2018 - dysphagia - h/o PEG placement 06/13/2018 - protein calorie malnutrition - h/o coffee ground emesis/UGIB on 12/23/2017 due to deep ulceration of distal esophagus and gastritis on EGD 12/26/2017. No e/o H. pylori - h/o possible appendicitis on CT on 11/22/2017, Pt took ertapenem (11/24/2017- 12/01/2017) - h/o extensive adhesions lower abdominal and pelvis between small bowel to each other and to colon and to abdominal wall, anterior pelvic wall chronic abscess secondary to probably an old perforated diverticulitis, torsion of small bowel around these dense adhesion causing multiple obstructive points - h/o laparoscopic exploration and extensive lysis of adhesions and drainage of anterior pelvic wall abscess 09/16/2017. Cultures were negative, no e/o malignancy. Pt took pip/tazo (09/16/2017-09/26/2017) - h/o EGD and exchange of PEG on 09/01/2017 - h/o partial obstruction mid jejunum in L anterior central pelvis with sugges tion of a 3 cm soft tissue mass on CT 08/28/2017 - h/o internal stomal deep ulcer behind the internal bumper, gastritis and esophagitis, Rodriguez's cannot be ruled out, per EGD with biopsy 07/23/2017 - h/o GIB s/p flex sig showed polyp; stool OB negative on 06/29/17 - h/o stool OB positive status - h/o SBO and ileus due to pain meds - h/o mildly elevated CEA # renal/ - UTI due to MDR, CRE-klebsiella on 06/15/2018. S/p renally dosed amikacin for klebsiella in her urine culture (06/17-06/22/2018) - UTI due to pseudomonas and ESBL+klebsiella on 06/09/2018, Pt took one dose of fosfomycin on 06/10/2018 and cipro 06/12-06/15/2018 - anasarca - started on HD on 05/15/2018, via Juan in R groin - recurrent NATHAN on CKD - 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 Her strain of CRE was sensitive to colistin, Avycaz, and Vabomere but resistant to Zerbaxa (reported on 05/19/2018) - metabolic acidosis - adrenal insufficiency - h/o vaginal bleed in 2018 - h/o colonization of urinary tract by ESBL+klebsiella, VRE - h/o recurrent, symptomatic UTI due to carbapenem-resistant kleb (MDR strain) per urine culture 10/04/17, 10/09/17, 10/21/2017, P took colistin (10/09/2017- 10/15/2017), fosfomycin for carbapenemase-producing klebsiella and VRE on 10/25/2017 and 10/28/2017 - h/o funguria - h/o urinary retention # fungemia, bacteremia 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; Pt declined surgery for MVR per outside medical records; TTE 07/01/17 did not mention any thrombus; s/p voriconazole (05/25/2017-08/01/2017) - h/o bacteremia due to MSSA and proteus s/p ceftriaxone; repeat blood cultures were negative on 06/14/2017 # musculoskeletal and dermatological - L hand pain - dry skin - chronic wound of LLE - h/o infection of wound of LLE - h/o debridement of wound of LLE on 08/06/2017 - h/o recurrent herpes labialis, Pt took acyclovir, valacyclovir - h/o Osler's nodes (eschar) of R toes with erythematous skin; desquamation of the skin and open lacerations on R plantar foot. improved. Probable manifestation of endocarditis. Pt declined MRI on 08/06/2017 - h/o infection of R toes due to pseudomonas. coagulase negative Staph likely a colonizer - h/o intertrigo of the groin, resolved with nystatin powder - h/o scabies, locally crusted lesion over L scapula, s/p permethrin cream and pGT ivermectin on 08/11/2017, 08/12/2017, 08/19/2017. Repeat skin scraping on 08/21/2017 was negative for scabies # psych, neuro - decreased hearing b/l - s/p acute toxic metabolic encephalopathy - h/o critical illness polyneuropathy - anxiety/depression, bipolar d/o, seen by Psychiatry in the past - chronic pain syndrome - h/o medical non-compliance: she would refuse her medications, treatment and straight catheterization in 2018 # hematological, vascular - chronic anemia requiring blood transfusion intermittently - macrocytic anemia - aneurysmal dilatation of the distal aorta visualized on CT 06/15/2018 - PVD Recommendations: - Monitor closely off systemic antibiotics. S/p renally dosed amikacin for klebsiella in her urine culture (06/17-06/22/2018) - Continue pGT vancomycin taper: 06/29-07/05/2018: q48hrs Plan was d/w Dr. Doyle via [employer] messaging. Consultation Date/Type/Reason Admit Date/Time May 06, 2018 at 17:38 Initial Consult Date 05/10/18 Type of Consult ID Reason for Consultation SEPSIS Requesting Provider: ROLAND GIRON MD Date/Time of Note DATE: 07/05/18 TIME: 10:50 24 HR Interval Summary Subjective hx not possible: pt non-verbal Constitutional: requiring O2 Exam/Review of Systems Exam Vitals Vital Signs Date Temp Pulse Resp B/P (MAP) Pulse Ox O2 O2 Flow FiO2 Time Delivery Rate 07/05/18 91 08:00 07/05/18 98.0 20 154/83 98 07:57 (106) 07/05/18 30 05:15 07/04/18 Mechanical 16:22 Ventilator Trach Collar Intake and Output 07/04/18 07/04/18 07/05/18 1515:00 23:00 07:00 IntakeIntake Total 680 ml 680 ml OutputOutput Total 1150 ml 1000 ml BalanceBalance -470 ml -320 ml Psych: nl mood/affect Eyes: nl lids, nl sclera ENMT: nl external ears & nose Neck: non-tender, other (trach inatct) Respiratory: diminished breath sounds Cardiovascular: nl pulses, other (s1s2) Gastrointestinal: soft, other (gt intact) Musculoskeletal: muscle weakness, range of motion Extremities: edema Neurological: unresponsive Results Result Diagram: 07/01/18 0601 07/03/18 0551 Medications Medication Current Medications IV Flush (NS 10 ml) 10 ml PRN IV ; Start 05/06/18 at 20:30 Ascorbic Acid (Vitamin C) 500 mg DAILY GTB Last administered on 07/05/18at 08:58; Admin Dose 500 MG; Start 05/07/18 at 09:00 Albuterol/ Ipratropium (Duoneb) 3 ml Q2H RESP THERAPY PRN HHN SHORTNESS OF BREATH Last administered on 06/30/18at 19:30; Admin Dose 3 ML; Start 05/06/18 at 23:30 Zinc Sulfate (Zinc Sulfate) 220 mg DAILY GTB Last administered on 07/05/18 08:59; Admin Dose 220 MG; Start 05/07/18 at 09:00 Ondansetron HCl (Zofran Tab) 4 mg Q6H PRN GTB NAUSEA AND/OR VOMITING Last administered on 05/31/18 16:47; Admin Dose 4 MG; Start 05/07/18 at 00:15 Multivitamins (Multivitamin) 30 ml DAILY GTB Last administered on 07/05/18 08:56; Admin Dose 30 ML; Start 05/07/18 at 09:00 Miscellaneous Information (Pending Santyl Order For Wound Care) This patient goldman... PRN PRN XX WOUND CARE; Start 05/09/18 at 17:00 Spironolactone (Aldactone) 50 mg DAILY GTB Last administered on 07/05/18 08:58; Admin Dose 50 MG; Start 05/21/18 at 09:00 Famotidine (Pepcid) 20 mg DAILY PEG Last administered on 07/05/18 08:59; Admin Dose 20 MG; Start 05/23/18 at 09:00 Morphine Sulfate (morphine) 6 mg Q4H PRN PEG SEVERE PAIN LEVEL 7-10 Last administered on 07/05/18 05:27; Admin Dose 6 MG; Start 05/22/18 at 17:00 Acetaminophen (Tylenol Tab) 650 mg Q4H PRN PO MILD PAIN(1-3)OR ELEVATED TEMP Last administered on 06/10/18 21:44; Admin Dose 650 MG; Start 05/31/18 at 13:00 Metoclopramide HCl (Reglan) 5 mg Q6 IV Last administered on 07/05/18 05:27; Admin Dose 5 MG; Start 05/31/18 at 13:00 Collagenase (Santyl) 1 applic DAILY TOP Last administered on 07/05/18 08:59; Admin Dose 1 APPLIC; Start 06/01/18 at 09:00 Clonidine (Catapres) 0.1 mg Q6H PRN PO ELEVATED BLOOD PRESSURE Last administered on 07/04/18 18:04; Admin Dose 0.1 MG; Start 06/03/18 at 03:30 Bumetanide (Bumex) 1 mg BID DIURETICS GTB Last administered on 07/05/18 05:27; Admin Dose 1 MG; Start 06/11/18 at 18:00 Collagenase (Santyl) 1 applic PRN PRN TOP WHEN SOILED; Start 06/13/18 at 01:00 Nystatin (Nystatin Powder) 1 applic BID TOP Last administered on 07/05/18 09:00; Admin Dose 1 APPLIC; Start 06/13/18 at 14:00 Vancomycin HCl (Vancomycin Oral Syringe) 250 mg Q48H GTB Last administered on 07/03/18 13:21; Admin Dose 250 MG; Start 06/29/18 at 14:00; Stop 07/06/18 at 13:59 Epoetin Zen-epbx (RETACRIT(esrd)) 20,000 unit Tu@1700 SC Last administered on 06/30/18 17:46; Admin Dose 20,000 UNIT; Start 06/16/18 at 18:30 Miscellaneous Information 1 ea NOTE XX ; Start 06/26/18 at 08:00 Dicyclomine HCl (Bentyl) 20 mg Q8 PO Last administered on 07/05/18 05:27; Admin Dose 20 MG; Start 06/27/18 at 22:00 Cholestyramine Resin (Questran Light) 4 gm 0600,1200,1800,2300 GTB Last administered on 07/05/18 05:27; Admin Dose 4 GM; Start 06/27/18 at 18:00 Metoprolol Tartrate (Lopressor) 50 mg BID GTB Last administered on 07/05/18 08:58; Admin Dose 50 MG; Start 06/29/18 at 21:00 Amiodarone HCl (Cordarone) 200 mg DAILY GTB Last administered on 07/05/18 08:59; Admin Dose 200 MG; Start 07/01/18 at 09:00 Lorazepam (Ativan) 0.5 mg Q4 PRN IV ANXIETY Last administered on 07/03/18 17:32; Admin Dose 0.5 MG; Start 07/01/18 at 14:00 KERON MORAN July 05, 2018 10:51
--- NOTE | 2018-07-05 11:50 | PN ---
Date/Time of Note Date/Time of Note DATE: 07/05/18 TIME: 11:50 Assessment/Plan VTE Prophylaxis Risk score (from Ns)>0 risk: 5 SCD applied (from Ns): Yes Pharmacological prophylaxis: LMWH Lines/Catheters IV [facility]ter [facility]from [facility] PICC Line Central line still needed: Yes Urinary Cath still in place: Yes Reason Cath still needed: skin wounds contaminated by urine Assessment/Plan Hospital Course -MDR Klebsiella urinary tract infection, completed treatment with amikacin. Dr. Doyle is following in infectious consultation. -Atrial fibrillation was rapid ventricular response, patient remains in sinus rhythm continue metoprolol and amiodarone. Dr. Scanlon is following in cardiology consultation. -S/p septic shock secondary to urinary tract infection, anterior neck soft tissue infection, and C. difficile colitis. -C-diff colitis, continue G-tube Vanco at the taper doses, -Acute respiratory failure requiring intubation and ventilatory support. Dr. Lambert is following in pulmonology consultation. -S/p tracheostomy on 05/29/18. -Acute kidney injury on chronic kidney disease. Started on HD this admission. Tio Mckeon is following in nephrology consultation. -Anemia of chronic inflammation, stool for OB is negative, status post blood transfusion. Continue Epogen. -Metabolic acidosis, resolved. -Acute diastolic congestive heart failure. -Paroxysmal atrial fibrillation -COPD -Dysphagia with PEG. -G-tube mild malfunction, changed by GI Dr. Carolina is following in gastroenterology consultation. -Obesity Result Diagram: 07/01/18 0601 07/03/18 0551 Subjective 24 Hr Interval Summary Free Text/Dictation Patient is resting, on vent Exam/Review of Systems Exam Vitals Vital Signs Date Temp Pulse Resp B/P (MAP) Pulse Ox O2 O2 Flow FiO2 Time Delivery Rate 07/05/18 30 09:00 07/05/18 91 08:00 07/05/18 98.0 20 154/83 98 07:57 (106) 07/04/18 Mechanical 16:22 Ventilator Trach Collar Intake and Output 07/04/18 07/04/18 07/05/18 1515:00 23:00 07:00 IntakeIntake Total 680 ml 680 ml OutputOutput Total 1150 ml 1000 ml BalanceBalance -470 ml -320 ml Constitutional: well developed Head: normocephalic, atraumatic Neck: supple Respiratory: diminished breath sounds Cardiovascular: regular rate and rhythm Gastrointestinal: soft, non-tender Extremities: normal pulses Medications Medication Current Medications IV Flush (NS 10 ml) 10 ml PRN IV ; Start 05/06/18 at 20:30 Ascorbic Acid (Vitamin C) 500 mg DAILY GTB Last administered on 07/05/18 08:58; Admin Dose 500 MG; Start 05/07/18 at 09:00 Albuterol/ Ipratropium (Duoneb) 3 ml Q2H RESP THERAPY PRN HHN SHORTNESS OF BREATH Last administered on 06/30/18 19:30; Admin Dose 3 ML; Start 05/06/18 at 23:30 Zinc Sulfate (Zinc Sulfate) 220 mg DAILY GTB Last administered on 07/05/18 08:59; Admin Dose 220 MG; Start 05/07/18 at 09:00 Ondansetron HCl (Zofran Tab) 4 mg Q6H PRN GTB NAUSEA AND/OR VOMITING Last administered on 05/31/18 16:47; Admin Dose 4 MG; Start 05/07/18 at 00:15 Multivitamins (Multivitamin) 30 ml DAILY GTB Last administered on 07/05/18 08:56; Admin Dose 30 ML; Start 05/07/18 at 09:00 Miscellaneous Information (Pending [facility] Order For Wound Care) This patient goldman... PRN PRN XX WOUND CARE; Start 05/09/18 at 17:00 Spironolactone (Aldactone) 50 mg DAILY GTB Last administered on 07/05/18 08:58; Admin Dose 50 MG; Start 05/21/18 at 09:00 Famotidine (Pepcid) 20 mg DAILY PEG Last administered on 07/05/18 08:59; Admin Dose 20 MG; Start 05/23/18 at 09:00 Morphine Sulfate (morphine) 6 mg Q4H PRN PEG SEVERE PAIN LEVEL 7-10 Last administered on 07/05/18 05:27; Admin Dose 6 MG; Start 05/22/18 at 17:00 Acetaminophen (Tylenol Tab) 650 mg Q4H PRN PO MILD PAIN(1-3)OR ELEVATED TEMP Last administered on 06/10/18 21:44; Admin Dose 650 MG; Start 05/31/18 at 13:00 Metoclopramide HCl (Reglan) 5 mg Q6 IV Last administered on 07/05/18 05:27; Admin Dose 5 MG; Start 05/31/18 at 13:00 Collagenase (Santyl) 1 applic DAILY TOP Last administered on 07/05/18 08:59; Admin Dose 1 APPLIC; Start 06/01/18 at 09:00 Clonidine (Catapres) 0.1 mg Q6H PRN PO ELEVATED BLOOD PRESSURE Last administered on 07/04/18 18:04; Admin Dose 0.1 MG; Start 06/03/18 at 03:30 Bumetanide (Bumex) 1 mg BID DIURETICS GTB Last administered on 07/05/18 05:27; Admin Dose 1 MG; Start 06/11/18 at 18:00 Collagenase (Santyl) 1 applic PRN PRN TOP WHEN SOILED; Start 06/13/18 at 01:00 Nystatin (Nystatin Powder) 1 applic BID TOP Last administered on 07/05/18 09:00; Admin Dose 1 APPLIC; Start 06/13/18 at 14:00 Vancomycin HCl (Vancomycin Oral Syringe) 250 mg Q48H GTB Last administered on 07/03/18 13:21; Admin Dose 250 MG; Start 06/29/18 at 14:00; Stop 07/06/18 at 13:59 Epoetin Zen-epbx (RETACRIT(esrd)) 20,000 unit Tu@1700 SC Last administered on 06/30/18at 17:46; Admin Dose 20,000 UNIT; Start 06/16/18 at 18:30 Miscellaneous Information 1 ea NOTE XX ; Start 06/26/18 at 08:00 Dicyclomine HCl (Bentyl) 20 mg Q8 PO Last administered on 07/05/18 05:27; Admin Dose 20 MG; Start 06/27/18 at 22:00 Cholestyramine Resin (Questran Light) 4 gm 0600,1200,1800,2300 GTB Last administered on 07/05/18 05:27; Admin Dose 4 GM; Start 06/27/18 at 18:00 Metoprolol Tartrate (Lopressor) 50 mg BID GTB Last administered on 07/05/18at 08:58; Admin Dose 50 MG; Start 06/29/18 at 21:00 Amiodarone HCl (Cordarone) 200 mg DAILY GTB Last administered on 07/05/18at 08:59; Admin Dose 200 MG; Start 07/01/18 at 09:00 Lorazepam (Ativan) 0.5 mg Q4 PRN IV ANXIETY Last administered on 07/03/18at 17:32; Admin Dose 0.5 MG; Start 07/01/18 at 14:00 STEPHANIE BAL July 05, 2018 11:50
--- NOTE | 2018-07-05 13:08 | PN ---
DATE: 07/05/2018 SUBJECTIVE: The patient is stable. No events overnight. OBJECTIVE: VITAL SIGNS: Blood pressure is 154/83, pulse 78, respirations 20, temperature 98.0. HEENT: Head is normocephalic. NECK: Supple. HEART: Regular rate. LUNGS: Show diminished breath sounds at the base. ABDOMEN: Soft, nontender to palpation. No rebound or guarding. EXTREMITIES: Negative for clubbing, cyanosis. Trace edema. DERMATOLOGIC: No rashes. MUSCULOSKELETAL: No joint effusions. NEUROLOGIC: No change in exam. MEDICATIONS: The patient's medications have been reviewed. LABORATORY DATA: Has been reviewed. ASSESSMENT AND PLAN: 1. Nonoliguric acute kidney injury on top of chronic kidney disease stage IIIB/IV, with baseline cre atinine 2.0 mg/dL. Etiology of acute kidney injury secondary to acute tubular necrosis. Renal funct ion has stabilized. Continue current treatment plan, supportive care, renally dose all meds. 2. Volume overload, stable. Continue Bumex. 3. Hypernatremia, resolved. 4. Hypomagnesemia. Continue to monitor and replace as needed. 5. Anemia. Monitor hemoglobin and hematocrit levels. 7. Mineral bone disorder, monitor calcium and phosphorus levels. 8. Ventilator dependent respiratory failure. Vent settings have been reviewed. Continue to monitor . 9. Sepsis status post shock. The patient is completing antibiotic course. 10. C. diff. Continue vancomycin. 11. Lower extremity wounds. Continue wound care. 12. Dysphagia. Continue tube feeding. 13. Encephalopathy, resolving. Dictated By: JEANA BANSAL DO NR/NTS Conf#: [id number] DID#: [id number] CC: ROLAND GIRON MD; QUINTEN UMAÑA MD;*EndCC*
--- NOTE | 2018-07-05 13:45 | CONS ---
Assessment/Plan Assessment/Plan Hospital Course (Demo Recall) 73 yo female No acute changes 1. ABD pain 2. Renal failure.- on HD 3. Vent dependent resp failure 4. Chronic obstructive pulmonary disease. 5. Bipolar. 6. Paroxysmal atrial fibrillation. 7. Anemia of chronic disease. 8. CHF 9. Diarrhea 11. Diarrhea -s/p c diff colitis -taper off of vanco -resolved 12. H/O deep esophageal ulcer 13. Dysphagia with g tube 14. Anemia of chronic disease 15. UTI with positive cx PLAN: Continue with reglan and pepcid and bentyl Monitor tube feeds residuals q 6 hour Pt examined and plan of care discussed with Dr Carolina Consultation Date/Type/Reason Admit Date/Time May 06, 2018 at 17:38 Initial Consult Date 05/10/18 Requesting Provider: ROLAND GIRON MD Date/Time of Note DATE: 07/05/18 TIME: 13:44 Exam/Review of Systems Exam Vitals Vital Signs Date Temp Pulse Resp B/P (MAP) Pulse Ox O2 O2 Flow FiO2 Time Delivery Rate 07/05/18 98.0 78 20 153/71 99 12:21 (98) 07/05/18 30 09:00 07/04/18 Mechanical 16:22 Ventilator Trach Collar Intake and Output 07/04/18 07/04/18 07/05/18 1515:00 23:00 07:00 IntakeIntake Total 680 ml 680 ml OutputOutput Total 1150 ml 1000 ml BalanceBalance -470 ml -320 ml Constitutional: alert, oriented Psych: no complaints Head: normocephalic Eyes: nl sclera, PERRL Respiratory: normal air movement Cardiovascular: regular rate and rhythm Gastrointestinal: soft, bowel sounds, tender Results Result Diagram: 07/01/18 0601 07/03/18 0551 Medications Medication Current Medications IV Flush (NS 10 ml) 10 ml PRN IV ; Start 05/06/18 at 20:30 Ascorbic Acid (Vitamin C) 500 mg DAILY GTB Last administered on 07/05/18at 08:58; Admin Dose 500 MG; Start 05/07/18 at 09:00 Albuterol/ Ipratropium (Duoneb) 3 ml Q2H RESP THERAPY PRN HHN SHORTNESS OF BREATH Last administered on 06/30/18at 19:30; Admin Dose 3 ML; Start 05/06/18 at 23:30 Zinc Sulfate (Zinc Sulfate) 220 mg DAILY GTB Last administered on 07/05/18 08:59; Admin Dose 220 MG; Start 05/07/18 at 09:00 Ondansetron HCl (Zofran Tab) 4 mg Q6H PRN GTB NAUSEA AND/OR VOMITING Last administered on 05/31/18 16:47; Admin Dose 4 MG; Start 05/07/18 at 00:15 Multivitamins (Multivitamin) 30 ml DAILY GTB Last administered on 07/05/18 08:56; Admin Dose 30 ML; Start 05/07/18 at 09:00 Miscellaneous Information (Pending Santyl Order For Wound Care) This patient goldman... PRN PRN XX WOUND CARE; Start 05/09/18 at 17:00 Spironolactone (Aldactone) 50 mg DAILY GTB Last administered on 07/05/18 08:58; Admin Dose 50 MG; Start 05/21/18 at 09:00 Famotidine (Pepcid) 20 mg DAILY PEG Last administered on 07/05/18 08:59; Admin Dose 20 MG; Start 05/23/18 at 09:00 Morphine Sulfate (morphine) 6 mg Q4H PRN PEG SEVERE PAIN LEVEL 7-10 Last administered on 07/05/18 05:27; Admin Dose 6 MG; Start 05/22/18 at 17:00 Acetaminophen (Tylenol Tab) 650 mg Q4H PRN PO MILD PAIN(1-3)OR ELEVATED TEMP Last administered on 06/10/18 21:44; Admin Dose 650 MG; Start 05/31/18 at 13:00 Metoclopramide HCl (Reglan) 5 mg Q6 IV Last administered on 07/05/18 12:21; Admin Dose 5 MG; Start 05/31/18 at 13:00 Collagenase (Santyl) 1 applic DAILY TOP Last administered on 07/05/18 08:59; Admin Dose 1 APPLIC; Start 06/01/18 at 09:00 Clonidine (Catapres) 0.1 mg Q6H PRN PO ELEVATED BLOOD PRESSURE Last administered on 07/04/18 18:04; Admin Dose 0.1 MG; Start 06/03/18 at 03:30 Bumetanide (Bumex) 1 mg BID DIURETICS GTB Last administered on 07/05/18 05:27; Admin Dose 1 MG; Start 06/11/18 at 18:00 Collagenase (Santyl) 1 applic PRN PRN TOP WHEN SOILED; Start 06/13/18 at 01:00 Nystatin (Nystatin Powder) 1 applic BID TOP Last administered on 07/05/18 09:00; Admin Dose 1 APPLIC; Start 06/13/18 at 14:00 Vancomycin HCl (Vancomycin Oral Syringe) 250 mg Q48H GTB Last administered on 07/03/18 13:21; Admin Dose 250 MG; Start 06/29/18 at 14:00; Stop 07/06/18 at 13:59 Epoetin Zen-epbx (RETACRIT(esrd)) 20,000 unit Tu@1700 SC Last administered on 06/30/18 17:46; Admin Dose 20,000 UNIT; Start 06/16/18 at 18:30 Miscellaneous Information 1 ea NOTE XX ; Start 06/26/18 at 08:00 Dicyclomine HCl (Bentyl) 20 mg Q8 PO Last administered on 07/05/18 05:27; Admin Dose 20 MG; Start 06/27/18 at 22:00 Cholestyramine Resin (Questran Light) 4 gm 0600,1200,1800,2300 GTB Last administered on 07/05/18 12:22; Admin Dose 4 GM; Start 06/27/18 at 18:00 Metoprolol Tartrate (Lopressor) 50 mg BID GTB Last administered on 07/05/18 08:58; Admin Dose 50 MG; Start 06/29/18 at 21:00 Amiodarone HCl (Cordarone) 200 mg DAILY GTB Last administered on 07/05/18 08:59; Admin Dose 200 MG; Start 07/01/18 at 09:00 Lorazepam (Ativan) 0.5 mg Q4 PRN IV ANXIETY Last administered on 07/03/18 17:32; Admin Dose 0.5 MG; Start 07/01/18 at 14:00 SHAHEEN GAMBOA July 05, 2018 13:45
[2018-07-05] MEDS: VANCOMYCIN HCL 250 MG/5ML POSYG GTB SCH (14:12)
[2018-07-05] MEDS ORDERED: AMIODARONE 200 MG TAB GTB ONE (14:46)
[2018-07-05] MEDS ORDERED: METOPROLOL 50 MG TAB GTB ONE (14:46)
--- NOTE | 2018-07-05 14:55 | CONS ---
Assessment/Plan Assessment/Plan Hospital Course (Demo Recall) Septic as well as hemorrhagic shock-resolved Acute respiratory failure status post intubation and repeat tracheostomy Acute blood loss anemia History of respiratory failure status post decannulation Preserved ejection fraction echocardiogram 05/10/2018 Paroxysmal atrial fibrillation Acute kidney injury History of hypertension-now labile BP -Patient with paroxysmal atrial fibrillation -Increase beta-tin and amiodarone and titrate as tolerated -Vent management as per pulmonary -Fluid management and electrolytes as per renal -Antibiotics as per infectious disease -No anticoagulation given recurrent anemia requiring blood transfusions Consultation Date/Type/Reason Admit Date/Time May 06, 2018 at 17:38 Initial Consult Date 05/10/18 Type of Consult Cardiology Requesting Provider: ROLAND GIRON MD Date/Time of Note DATE: 07/05/18 TIME: 14:53 24 HR Interval Summary Free Text/Dictation no sob,cp Exam/Review of Systems Vital Signs Vitals Vital Signs Date Temp Pulse Resp B/P (MAP) Pulse Ox O2 O2 Flow FiO2 Time Delivery Rate 07/05/18 98.0 78 20 153/71 99 12:21 (98) 07/05/18 30 09:00 07/04/18 Mechanical 16:22 Ventilator Trach Collar Intake and Output 07/04/18 07/04/18 07/05/18 1414:59 22:59 06:59 IntakeIntake Total 680 ml 680 ml OutputOutput Total 1150 ml 1000 ml BalanceBalance -470 ml -320 ml Exam Constitutional: alert (nad) Head: normocephalic Respiratory: other (course bs, no wheeze) Cardiovascular: irregular rhythm (s1s2) Gastrointestinal: soft, non-tender, bowel sounds Extremities: edema Labs Result Diagram: 07/01/18 0601 07/03/18 0551 Medications Medications Current Medications IV Flush (NS 10 ml) 10 ml PRN IV ; Start 05/06/18 at 20:30 Ascorbic Acid (Vitamin C) 500 mg DAILY GTB Last administered on 07/05/18at 08:58; Admin Dose 500 MG; Start 05/07/18 at 09:00 Albuterol/ Ipratropium (Duoneb) 3 ml Q2H RESP THERAPY PRN HHN SHORTNESS OF BREATH Last administered on 06/30/18at 19:30; Admin Dose 3 ML; Start 05/06/18 at 23:30 Zinc Sulfate (Zinc Sulfate) 220 mg DAILY GTB Last administered on 07/05/18 08:59; Admin Dose 220 MG; Start 05/07/18 at 09:00 Ondansetron HCl (Zofran Tab) 4 mg Q6H PRN GTB NAUSEA AND/OR VOMITING Last administered on 05/31/18 16:47; Admin Dose 4 MG; Start 05/07/18 at 00:15 Multivitamins (Multivitamin) 30 ml DAILY GTB Last administered on 07/05/18 08:56; Admin Dose 30 ML; Start 05/07/18 at 09:00 Miscellaneous Information (Pending Santyl Order For Wound Care) This patient goldman... PRN PRN XX WOUND CARE; Start 05/09/18 at 17:00 Spironolactone (Aldactone) 50 mg DAILY GTB Last administered on 07/05/18 08:58; Admin Dose 50 MG; Start 05/21/18 at 09:00 Famotidine (Pepcid) 20 mg DAILY PEG Last administered on 07/05/18 08:59; Admin Dose 20 MG; Start 05/23/18 at 09:00 Morphine Sulfate (morphine) 6 mg Q4H PRN PEG SEVERE PAIN LEVEL 7-10 Last a dministered on 07/05/18 05:27; Admin Dose 6 MG; Start 05/22/18 at 17:00 Acetaminophen (Tylenol Tab) 650 mg Q4H PRN PO MILD PAIN(1-3)OR ELEVATED TEMP Last administered on 06/10/18 21:44; Admin Dose 650 MG; Start 05/31/18 at 13:00 Metoclopramide HCl (Reglan) 5 mg Q6 IV Last administered on 07/05/18 12:21; Admin Dose 5 MG; Start 05/31/18 at 13:00 Collagenase (Santyl) 1 applic DAILY TOP Last administered on 07/05/18 08:59; Admin Dose 1 APPLIC; Start 06/01/18 at 09:00 Clonidine (Catapres) 0.1 mg Q6H PRN PO ELEVATED BLOOD PRESSURE Last administered on 07/04/18 18:04; Admin Dose 0.1 MG; Start 06/03/18 at 03:30 Bumetanide (Bumex) 1 mg BID DIURETICS GTB Last administered on 07/05/18 05:27; Admin Dose 1 MG; Start 06/11/18 at 18:00 Collagenase (Santyl) 1 applic PRN PRN TOP WHEN SOILED; Start 06/13/18 at 01:00 Nystatin (Nystatin Powder) 1 applic BID TOP Last administered on 07/05/18 09 :00; Admin Dose 1 APPLIC; Start 06/13/18 at 14:00 Vancomycin HCl (Vancomycin Oral Syringe) 250 mg Q48H GTB Last administered on 07/05/18 14:12; Admin Dose 250 MG; Start 06/29/18 at 14:00; Stop 07/06/18 at 13:59 Epoetin Zen-epbx (RETACRIT(esrd)) 20,000 unit Tu@1700 SC Last administered on 06/30/18 17:46; Admin Dose 20,000 UNIT; Start 06/16/18 at 18:30 Miscellaneous Information 1 ea NOTE XX ; Start 06/26/18 at 08:00 Dicyclomine HCl (Bentyl) 20 mg Q8 PO Last administered on 07/05/18at 14:12; A dmin Dose 20 MG; Start 06/27/18 at 22:00 Cholestyramine Resin (Questran Light) 4 gm 0600,1200,1800,2300 GTB Last administered on 07/05/18 12:22; Admin Dose 4 GM; Start 06/27/18 at 18:00 Lorazepam (Ativan) 0.5 mg Q4 PRN IV ANXIETY Last administered on 07/03/18at 17:32; Admin Dose 0.5 MG; Start 07/01/18 at 14:00 Amiodarone HCl (Cordarone) 200 mg Q8 GTB ; Start 07/05/18 at 22:00; Status UNV Metoprolol Tartrate (Lopressor) 50 mg Q8 GTB ; Start 07/05/18 at 22:00; Status UNV Metoprolol Tartrate (Lopressor) 50 mg 1446 ONCE GTB ; Start 07/05/18 at 14:46; Stop 07/05/18 at 14:47; Status UNV Amiodarone HCl (Cordarone) 200 mg 1446 ONCE GTB ; Start 07/05/18 at 14:46; Stop 07/05/18 at 14:47; Status UNV Evangelista Scanlon DO July 05, 2018 14:55
[2018-07-06] VITALS (21 sets, daily range): BP systolic 103–122; BP diastolic 52–69; PULSE 63–78; RESP 17–27
[2018-07-06] MEDS: METOCLOPRAMIDE 10 MG INJ IV SCH ×5 (01:17→23:59)
[2018-07-06] MEDS: BUMETANIDE 1 MG TAB GTB SCH ×2 (05:52→19:00)
[2018-07-06] MEDS: AMIODARONE 200 MG TAB GTB SCH ×3 (05:52→22:23)
[2018-07-06] MEDS: DICYCLOMINE 10 MG CAP PO SCH ×3 (05:52→21:25)
[2018-07-06] MEDS: METOPROLOL 50 MG TAB GTB SCH ×4 (05:53→21:26)
[2018-07-06] MEDS: CHOLESTYRAMINE (LIGHT) 4 GM PACKET GTB SCH ×4 (05:54→22:23)
[2018-07-06] MEDS: SPIRONOLACTONE 25 MG TAB GTB SCH (08:35)
[2018-07-06] MEDS: ASCORBIC ACID 500 MG TAB GTB SCH (08:35)
[2018-07-06] MEDS: FAMOTIDINE 20 MG TAB PEG SCH (08:35)
[2018-07-06] MEDS: ZINC SULFATE 220 MG CAP GTB SCH (08:35)
[2018-07-06] MEDS: MULTIVITAMINS 30 ML CUP GTB SCH (08:35)
[2018-07-06] MEDS: COLLAGENASE 5 GM (UD JAR) TOP SCH (08:36)
[2018-07-06] MEDS: NYSTATIN 30 GM POWDER BTL TOP SCH ×2 (08:37→21:26)
[2018-07-06] MEDS: BALSAM PERU/CASTOR OIL 60 GM TUBE TOP SCH ×2 (08:37→21:27)
--- NOTE | 2018-07-06 08:59 | CONS ---
Assessment/Plan Assessment/Plan Hospital Course (Demo Recall) 73 yo female Interval hx: No acute changes. HH slightly lower but stable. NO evidence of ov ert GI bleeding 1. ABD pain 2. Renal failure.- on HD 3. Vent dependent resp failure 4. Chronic obstructive pulmonary disease. 5. Bipolar. 6. Paroxysmal atrial fibrillation. 7. Anemia of chronic disease. 8. CHF 9. Diarrhea 11. Diarrhea -s/p c diff colitis -taper off of vanco -resolved 12. H/O deep esophageal ulcer 13. Dysphagia with g tube 14. Anemia of chronic disease 15. UTI with positive cx PLAN: Continue with reglan and pepcid and bentyl Monitor tube feeds residuals q 6 hour Pt examined and plan of care discussed with Dr Carolina Consultation Date/Type/Reason Admit Date/Time May 06, 2018 at 17:38 Initial Consult Date 05/10/18 Requesting Provider: ROLAND GIRON MD Date/Time of Note DATE: 07/06/18 TIME: 08:58 Exam/Review of Systems Exam Vitals Vital Signs Date Temp Pulse Resp B/P (MAP) Pulse Ox O2 O2 Flow FiO2 Time Delivery Rate 07/06/18 71 08:13 07/06/18 30 08:00 07/06/18 98.5 19 113/56 100 07:27 (75) 07/04/18 Mechanical 16:22 Ventilator Trach Collar Intake and Output 07/05/18 07/05/18 07/06/18 1515:00 23:00 07:00 IntakeIntake Total 700 ml 680 ml OutputOutput Total 800 ml 950 ml BalanceBalance -100 ml -270 ml Constitutional: alert, oriented Psych: no complaints Head: normocephalic Eyes: PERRL Respiratory: normal air movement, diminished breath sounds Cardiovascular: regular rate and rhythm Gastrointestinal: soft, tender Neurological: nl mental status Results Result Diagram: 07/03/18 0551 Medications Medication Current Medications IV Flush (NS 10 ml) 10 ml PRN IV ; Start 05/06/18 at 20:30 Ascorbic Acid (Vitamin C) 500 mg DAILY GTB Last administered on 07/06/18at 08:35; Admin Dose 500 MG; Start 05/07/18 at 09:00 Albuterol/ Ipratropium (Duoneb) 3 ml Q2H RESP THERAPY PRN HHN SHORTNESS OF BREATH Last administered on 06/30/18 19:30; Admin Dose 3 ML; Start 05/06/18 at 23:30 Zinc Sulfate (Zinc Sulfate) 220 mg DAILY GTB Last administered on 07/06/18 08:35; Admin Dose 220 MG; Start 05/07/18 at 09:00 Ondansetron HCl (Zofran Tab) 4 mg Q6H PRN GTB NAUSEA AND/OR VOMITING Last administered on 05/31/18 16:47; Admin Dose 4 MG; Start 05/07/18 at 00:15 Multivitamins (Multivitamin) 30 ml DAILY GTB Last administered on 07/06/18 08:35; Admin Dose 30 ML; Start 05/07/18 at 09:00 Miscellaneous Information (Pending Santyl Order For Wound Care) This patient goldman... PRN PRN XX WOUND CARE; Start 05/09/18 at 17:00 Spironolactone (Aldactone) 50 mg DAILY GTB Last administered on 07/06/18 08:35; Admin Dose 50 MG; Start 05/21/18 at 09:00 Famotidine (Pepcid) 20 mg DAILY PEG Last administered on 07/06/18 08:35; Admin Dose 20 MG; Start 05/23/18 at 09:00 Morphine Sulfate (morphine) 6 mg Q4H PRN PEG SEVERE PAIN LEVEL 7-10 Last administered on 07/05/18 05:27; Admin Dose 6 MG; Start 05/22/18 at 17:00 Acetaminophen (Tylenol Tab) 650 mg Q4H PRN PO MILD PAIN(1-3)OR ELEVATED TEMP Last administered on 06/10/18 21:44; Admin Dose 650 MG; Start 05/31/18 at 13:00 Metoclopramide HCl (Reglan) 5 mg Q6 IV Last administered on 07/06/18 05:52; Admin Dose 5 MG; Start 05/31/18 at 13:00 Collagenase (Santyl) 1 applic DAILY TOP Last administered on 07/05/18 08:59; Admin Dose 1 APPLIC; Start 06/01/18 at 09:00 Clonidine (Catapres) 0.1 mg Q6H PRN PO ELEVATED BLOOD PRESSURE Last administered on 07/04/18 18:04; Admin Dose 0.1 MG; Start 06/03/18 at 03:30 Bumetanide (Bumex) 1 mg BID DIURETICS GTB Last administered on 07/06/18 05:52; Admin Dose 1 MG; Start 06/11/18 at 18:00 Collagenase (Santyl) 1 applic PRN PRN TOP WHEN SOILED; Start 06/13/18 at 01:00 Nystatin (Nystatin Powder) 1 applic BID TOP Last administered on 07/06/18 08:37; Admin Dose 1 APPLIC; Start 06/13/18 at 14:00 Vancomycin HCl (Vancomycin Oral Syringe) 250 mg Q48H GTB Last administered on 07/05/18 14:12; Admin Dose 250 MG; Start 06/29/18 at 14:00; Stop 07/06/18 at 13:59 Epoetin Zen-epbx (RETACRIT(esrd)) 20,000 unit Tu@1700 SC Last administered on 06/30/18 17:46; Admin Dose 20,000 UNIT; Start 06/16/18 at 18:30 Miscellaneous Information 1 ea NOTE XX ; Start 06/26/18 at 08:00 Dicyclomine HCl (Bentyl) 20 mg Q8 PO Last administered on 07/06/18 05:52; Admin Dose 20 MG; Start 06/27/18 at 22:00 Cholestyramine Resin (Questran Light) 4 gm 0600,1200,1800,2300 GTB Last administered on 07/06/18 05:54; Admin Dose 4 GM; Start 06/27/18 at 18:00 Lorazepam (Ativan) 0.5 mg Q4 PRN IV ANXIETY Last administered on 07/03/18 17:32; Admin Dose 0.5 MG; Start 07/01/18 at 14:00 Amiodarone HCl (Cordarone) 200 mg Q8 GTB Last administered on 07/06/18 05:52; Admin Dose 200 MG; Start 07/05/18 at 22:00 Metoprolol Tartrate (Lopressor) 50 mg Q8 GTB Last administered on 07/06/18 08:36; Admin Dose 50 MG; Start 07/05/18 at 22:00 SHAHEEN GAMBOA July 06, 2018 08:59
--- NOTE | 2018-07-06 10:14 | PN ---
DATE: 07/06/2018 SUBJECTIVE: The patient is stable. No events overnight. No fevers, chills, nausea, vomiting. OBJECTIVE: VITAL SIGNS: Blood pressure is 113/56, pulse , respiration 19, temperature is 98.5. HEENT: Head is normocephalic. NECK: Supple. HEART: Regular rate. LUNGS: Show diminished breath sounds at the base. ABDOMEN: Soft, nontender to palpation, no rebound or guarding. EXTREMITIES: Negative for clubbing, cyanosis. Trace edema. DERMATOLOGIC: No rashes. MUSCULOSKELETAL: No joint effusion. NEUROLOGIC: No change in exam. MEDICATIONS: Have been reviewed. LABORATORY DATA: Has been reviewed. IMAGING STUDIES: Have been reviewed. ASSESSMENT AND PLAN: 1. Nonoliguric kidney injury on top of chronic kidney disease stage IIIB/IV, with baseline creatinin e 2.0 mg/dL. Etiology of acute kidney injury is secondary to acute tubular necrosis. Renal function stabilized. Continue current treatment plan, supportive care, renally dose all meds. 2. Volume overload, stable. Continue Bumex. 3. Hyponatremia, resolved. 4. Hypomagnesemia. Continue to monitor and replete as needed. 5. Anemia. Monitor hemoglobin and hematocrit levels. 6. Mineral bone disorder. Monitor calcium and phosphorus levels. 7. Ventilator-dependent respiratory failure. Vent settings have been reviewed. Continue to monitor . 8. Sepsis status post shock. The patient is completing antibiotic course. 9. Clostridium difficile. The patient is completing course of vancomycin. 10. Lower extremity wounds. Continue wound care. 11. Dysphagia. Continue tube feeding. 12. Encephalopathy, resolved. Dictated By: JEANA FINE/NTS Conf#: [id number] DID#: [id number] CC: ROLAND GIRON MD;*EndCC*
--- NOTE | 2018-07-06 11:49 | CONS ---
Assessment/Plan Assessment/Plan Hospital Course (Demo Recall) Septic as well as hemorrhagic shock-resolved Acute respiratory failure status post intubation and repeat tracheostomy Acute blood loss anemia History of respiratory failure status post decannulation Preserved ejection fraction echocardiogram 05/10/2018 Paroxysmal atrial fibrillation Acute kidney injury History of hypertension-now labile BP -Patient with paroxysmal atrial fibrillation, currently in sinus rhythm -Continue beta-tin and amiodarone and titrate as tolerated -Vent management as per pulmonary -Fluid management and electrolytes as per renal -Antibiotics as per infectious disease -No anticoagulation given recurrent anemia requiring blood transfusions Consultation Date/Type/Reason Admit Date/Time May 06, 2018 at 17:38 Initial Consult Date 05/10/18 Type of Consult Cardiology Requesting Provider: ROLAND GIRON MD Date/Time of Note DATE: 07/06/18 TIME: 11:48 24 HR Interval Summary Free Text/Dictation Patient seen and examined. No shortness of breath Exam/Review of Systems Vital Signs Vitals Vital Signs Date Temp Pulse Resp B/P (MAP) Pulse Ox O2 O2 Flow FiO2 Time Delivery Rate 07/06/18 98.0 68 23 103/52 100 11:41 (69) 07/06/18 30 11:17 07/04/18 Mechanical 16:22 Ventilator Trach Collar Intake and Output 07/05/18 07/05/18 07/06/18 1515:00 23:00 07:00 IntakeIntake Total 700 ml 680 ml OutputOutput Total 800 ml 950 ml BalanceBalance -100 ml -270 ml Exam Exam Sleeping but arousable, no apparent distress Head: normocephalic Respiratory: other (Coarse breath sounds bilaterally, no wheezing) Cardiovascular: regular rate and rhythm, other (S1-S2 heard) Gastrointestinal: soft, non-tender, bowel sounds Extremities: edema Labs Result Diagram: 07/03/18 0551 Medications Medications Current Medications IV Flush (NS 10 ml) 10 ml PRN IV ; Start 05/06/18 at 20:30 Ascorbic Acid (Vitamin C) 500 mg DAILY GTB Last administered on 07/06/18at 08:35; Admin Dose 500 MG; Start 05/07/18 at 09:00 Albuterol/ Ipratropium (Duoneb) 3 ml Q2H RESP THERAPY PRN HHN SHORTNESS OF BREATH Last administered on 06/30/18at 19:30; Admin Dose 3 ML; Start 05/06/18 at 23:30 Zinc Sulfate (Zinc Sulfate) 220 mg DAILY GTB Last administered on 07/06/18 08:35; Admin Dose 220 MG; Start 05/07/18 at 09:00 Ondansetron HCl (Zofran Tab) 4 mg Q6H PRN GTB NAUSEA AND/OR VOMITING Last adm inistered on 05/31/18 16:47; Admin Dose 4 MG; Start 05/07/18 at 00:15 Multivitamins (Multivitamin) 30 ml DAILY GTB Last administered on 07/06/18 08:35; Admin Dose 30 ML; Start 05/07/18 at 09:00 Miscellaneous Information (Pending Santyl Order For Wound Care) This patient goldman... PRN PRN XX WOUND CARE; Start 05/09/18 at 17:00 Spironolactone (Aldactone) 50 mg DAILY GTB Last administered on 07/06/18 08:35; Admin Dose 50 MG; Start 05/21/18 at 09:00 Famotidine (Pepcid) 20 mg DAILY PEG Last administered on 07/06/18 08:35; Admin Dose 20 MG; Start 05/23/18 at 09:00 Morphine Sulfate (morphine) 6 mg Q4H PRN PEG SEVERE PAIN LEVEL 7-10 Last administered on 07/05/18 05:27; Admin Dose 6 MG; Start 05/22/18 at 17:00 Acetaminophen (Tylenol Tab) 650 mg Q4H PRN PO MILD PAIN(1-3)OR ELEVATED TEMP Last administered on 06/10/18 21:44; Admin Dose 650 MG; Start 05/31/18 at 13:00 Metoclopramide HCl (Reglan) 5 mg Q6 IV Last administered on 07/06/18 05:52; Admin Dose 5 MG; Start 05/31/18 at 13:00 Collagenase (Santyl) 1 applic DAILY TOP Last administered on 07/05/18 08:59; Admin Dose 1 APPLIC; Start 06/01/18 at 09:00 Clonidine (Catapres) 0.1 mg Q6H PRN PO ELEVATED BLOOD PRESSURE Last administered on 07/04/18 18:04; Admin Dose 0.1 MG; Start 06/03/18 at 03:30 Bumetanide (Bumex) 1 mg BID DIURETICS GTB Last administered on 07/06/18 05:52; Admin Dose 1 MG; Start 06/11/18 at 18:00 Collagenase (Santyl) 1 applic PRN PRN TOP WHEN SOILED; Start 06/13/18 at 01:00 Nystatin (Nystatin Powder) 1 applic BID TOP Last administered on 07/06/18 08:37; Admin Dose 1 APPLIC; Start 06/13/18 at 14:00 Vancomycin HCl (Vancomycin Oral Syringe) 250 mg Q48H GTB Last administered on 07/05/18 14:12; Admin Dose 250 MG; Start 06/29/18 at 14:00; Stop 07/06/18 at 13:59 Epoetin Zen-epbx (RETACRIT(esrd)) 20,000 unit Tu@1700 SC Last administered on 06/30/18 17:46; Admin Dose 20,000 UNIT; Start 06/16/18 at 18:30 Miscellaneous Information 1 ea NOTE XX ; Start 06/26/18 at 08:00 Dicyclomine HCl (Bentyl) 20 mg Q8 PO Last administered on 07/06/18 05:52; Admin Dose 20 MG; Start 06/27/18 at 22:00 Cholestyramine Resin (Questran Light) 4 gm 0600,1200,1800,2300 GTB Last administered on 07/06/18 05:54; Admin Dose 4 GM; Start 06/27/18 at 18:00 Lorazepam (Ativan) 0.5 mg Q4 PRN IV ANXIETY Last administered on 07/03/18at 17:32; Admin Dose 0.5 MG; Start 07/01/18 at 14:00 Amiodarone HCl (Cordarone) 200 mg Q8 GTB Last administered on 07/06/18 05:52; Admin Dose 200 MG; Start 07/05/18 at 22:00 Metoprolol Tartrate (Lopressor) 50 mg Q8 GTB Last administered on 07/06/18 08:36; Admin Dose 50 MG; Start 07/05/18 at 22:00 Evangelista Scanlon DO July 06, 2018 11:49
--- NOTE | 2018-07-06 12:21 | CONS ---
Assessment/Plan Assessment/Plan Hospital Course (Demo Recall) # sepsis, leukocytosis, SIRS, pulmonary, cardiac - recurrent leukocytosis due to recurrent UTI, improved - s/p septic shock due to pneumonia and C diff colitis - acute on chronic hypoxic respiratory failure, persistent - s/p reintubation 05/12/2018 - s/p re-do trach on 05/29/2018 - recurrent colonization of the anterior neck wound with ESBL+kleb, MRSA, GBS, corynebacteria on 05/06/2018, s/p meropenem - h/o pneumonia vs. colonization of the airway by pseudomonas and ESBL+klebsiella - h/o possible, recurrent HCAP due to pseudomonas and ESBL+klebsiella - h/o recurrent HCAP due to MRSA and Enterobacter (culture of tracheal aspirate on 07/16/2017 that was collected at [facility]) . Pt took vancomycin and ceftazidime - h/o decannulation prior to admission - h/o tracheostomy on 06/11/2017 - h/o SIRS from UGIB in 2018 - h/o thoracentesis on 07/18/2017, transudative (protein <2, LDH 279) - h/o bleeding from the trach site in 2018 - h/o septic shock due to pneumonia, ARDS, bacteremia, fungemia in 2018 - h/o ARDS in 2018 - h/o smoking - COPD - h/o ILD per medical record - h/o PAF, improved # GI - possible ileus or enterocolitis on CT abd/pel 06/15/2018 - C diff colitis, diagnosed on 05/11/2018. Pt's on pGT vancomycin induction followed by taper (05/11/2018-); Pt previously took IV metronidazole (05/11/2018- 05/29/2018; restart 05/30/2018-06/05/18) too - h/o intermittent diarrhea, Pt had multiple negative C. diff tests at [facility] at OSH in the past; none was positive until 05/11/2018 - dysphagia - h/o PEG placement 06/13/2018 - protein calorie malnutrition - h/o coffee ground emesis/UGIB on 12/23/2017 due to deep ulceration of distal esophagus and gastritis on EGD 12/26/2017. No e/o H. pylori - h/o possible appendicitis on CT on 11/22/2017, Pt took ertapenem (11/24/2017-12/01/2017) - h/o extensive adhesions lower abdominal and pelvis between small bowel to each other and to colon and to abdominal wall, anterior pelvic wall chronic abscess secondary to probably an old perforated diverticulitis, torsion of small bowel around these dense adhesion causing multiple obstructive points - h/o laparoscopic exploration and extensive lysis of adhesions and drainage of anterior pelvic wall abscess 09/16/2017. Cultures were negative, no e/o malignancy. 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 S/p renally dosed amikacin for klebsiella in her urine culture (06/17-06/22/2018) - UTI due to pseudomonas and ESBL+klebsiella on 06/09/2018, Pt took one dose of fosfomycin on 06/10/2018 and cipro 06/12-06/15/2018 - anasarca - started on HD on 05/15/2018, via Juan in R groin - recurrent NATHAN on CKD - 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 Her strain of CRE was sensitive to colistin, Avycaz, and Vabomere but resistant to Zerbaxa (reported on 05/19/2018) - metabolic acidosis - adrenal insufficiency - h/o vaginal bleed in 2018 - h/o colonization of urinary tract by ESBL+klebsiella, VRE - h/o recurrent, symptomatic UTI due to carbapenem-resistant kleb (MDR strain) per urine culture 10/04/17, 10/09/17, 10/21/2017, P took colistin (10/09/2017- 10/15/2017), fosfomycin for carbapenemase-producing klebsiella and VRE on 10/25/2017 and 10/28/2017 - h/o funguria - h/o urinary retention # fungemia, bacteremia 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; Pt declined surgery for MVR per outside medical records; TTE 07/01/17 did not mention any thrombus; s/p voriconazole (05/25/2017-08/01/2017) - h/o bacteremia due to MSSA and proteus s/p ceftriaxone; repeat blood cultures were negative on 06/14/2017 # musculoskeletal and dermatological - L hand pain - dry skin - chronic wound of LLE - h/o infection of wound of LLE - h/o debridement of wound of LLE on 08/06/2017 - h/o recurrent herpes labialis, Pt took acyclovir, valacyclovir - h/o Osler's nodes (eschar) of R toes with erythematous skin; desquamation of the skin and open lacerations on R plantar foot. improved. Probable manifestation of endocarditis. Pt declined MRI on 08/06/2017 - h/o infection of R toes due to pseudomonas. coagulase negative Staph likely a colonizer - h/o intertrigo of the groin, resolved with nystatin powder - h/o scabies, locally crusted lesion over L scapula, s/p permethrin cream and pGT ivermectin on 08/11/2017, 08/12/2017, 08/19/2017. Repeat skin scraping on 08/21/2017 was negative for scabies # psych, neuro - decreased hearing b/l - s/p acute toxic metabolic encephalopathy - h/o critical illness polyneuropathy - anxiety/depression, bipolar d/o, seen by Psychiatry in the past - chronic pain syndrome - h/o medical non-compliance: she would refuse her medications, treatment and straight catheterization in 2018 # hematological, vascular - chronic anemia requiring blood transfusion intermittently - macrocytic anemia - aneurysmal dilatation of the distal aorta visualized on CT 06/15/2018 - PVD Recommendations: - Monitor closely off systemic antibiotics. S/p renally dosed amikacin for klebsiella in her urine culture (06/17-06/22/2018) - completed po vanco taper Consultation Date/Type/Reason Admit Date/Time May 06, 2018 at 17:38 Initial Consult Date 05/10/18 Type of Consult ID Requesting Provider: ROLAND GIRON MD Date/Time of Note DATE: 07/06/18 TIME: 12:20 Exam/Review of Systems Exam Vitals Vital Signs Date Temp Pulse Resp B/P (MAP) Pulse Ox O2 O2 Flow FiO2 Time Delivery Rate 07/06/18 68 12:09 07/06/18 98.0 23 103/52 100 11:41 (69) 07/06/18 30 11:17 07/04/18 Mechanical 16:22 Ventilator Trach Collar Intake and Output 07/05/18 07/05/18 07/06/18 1515:00 23:00 07:00 IntakeIntake Total 700 ml 680 ml OutputOutput Total 800 ml 950 ml BalanceBalance -100 ml -270 ml Results Result Diagram: 07/03/18 0551 Medications Medication Current Medications IV Flush (NS 10 ml) 10 ml PRN IV ; Start 05/06/18 at 20:30 Ascorbic Acid (Vitamin C) 500 mg DAILY GTB Last administered on 07/06/18at 08:35; Admin Dose 500 MG; Start 05/07/18 at 09:00 Albuterol/ Ipratropium (Duoneb) 3 ml Q2H RESP THERAPY PRN HHN SHORTNESS OF BREATH Last administered on 06/30/18at 19:30; Admin Dose 3 ML; Start 05/06/18 at 23:30 Zinc Sulfate (Zinc Sulfate) 220 mg DAILY GTB Last administered on 07/06/18 08:35; Admin Dose 220 MG; Start 05/07/18 at 09:00 Ondansetron HCl (Zofran Tab) 4 mg Q6H PRN GTB NAUSEA AND/OR VOMITING Last administered on 05/31/18at 16:47; Admin Dose 4 MG; Start 05/07/18 at 00:15 Multivitamins (Multivitamin) 30 ml DAILY GTB Last administered on 07/06/18at 08:35; Admin Dose 30 ML; Start 05/07/18 at 09:00 Miscellaneous Information (Pending Santyl Order For Wound Care) This patient goldman... PRN PRN XX WOUND CARE; Start 05/09/18 at 17:00 Spironolactone (Aldactone) 50 mg DAILY GTB Last administered on 07/06/18 08:35; Admin Dose 50 MG; Start 05/21/18 at 09:00 Famotidine (Pepcid) 20 mg DAILY PEG Last administered on 07/06/18 08:35; Admin Dose 20 MG; Start 05/23/18 at 09:00 Morphine Sulfate (morphine) 6 mg Q4H PRN PEG SEVERE PAIN LEVEL 7-10 Last administered on 07/05/18 05:27; Admin Dose 6 MG; Start 05/22/18 at 17:00 Acetaminophen (Tylenol Tab) 650 mg Q4H PRN PO MILD PAIN(1-3)OR ELEVATED TEMP Last administered on 06/10/18 21:44; Admin Dose 650 MG; Start 05/31/18 at 13:00 Metoclopramide HCl (Reglan) 5 mg Q6 IV Last administered on 07/06/18 05:52; Admin Dose 5 MG; Start 05/31/18 at 13:00 Collagenase (Santyl) 1 applic DAILY TOP Last administered on 07/05/18 08:59; Admin Dose 1 APPLIC; Start 06/01/18 at 09:00 Clonidine (Catapres) 0.1 mg Q6H PRN PO ELEVATED BLOOD PRESSURE Last administered on 07/04/18at 18:04; Admin Dose 0.1 MG; Start 06/03/18 at 03:30 Bumetanide (Bumex) 1 mg BID DIURETICS GTB Last administered on 07/06/18 05:52; Admin Dose 1 MG; Start 06/11/18 at 18:00 Collagenase (Santyl) 1 applic PRN PRN TOP WHEN SOILED; Start 06/13/18 at 01:00 Nystatin (Nystatin Powder) 1 applic BID TOP Last administered on 07/06/18 08:37; Admin Dose 1 APPLIC; Start 06/13/18 at 14:00 Vancomycin HCl (Vancomycin Oral Syringe) 250 mg Q48H GTB Last administered on 07/05/18 14:12; Admin Dose 250 MG; Start 06/29/18 at 14:00; Stop 07/06/18 at 13:59 Epoetin Zen-epbx (RETACRIT(esrd)) 20,000 unit Tu@1700 SC Last administered on 06/30/18at 17:46; Admin Dose 20,000 UNIT; Start 06/16/18 at 18:30 Miscellaneous Information 1 ea NOTE XX ; Start 06/26/18 at 08:00 Dicyclomine HCl (Bentyl) 20 mg Q8 PO Last administered on 07/06/18at 05:52; Admin Dose 20 MG; Start 06/27/18 at 22:00 Cholestyramine Resin (Questran Light) 4 gm 0600,1200,1800,2300 GTB Last administered on 07/06/18 05:54; Admin Dose 4 GM; Start 06/27/18 at 18:00 Lorazepam (Ativan) 0.5 mg Q4 PRN IV ANXIETY Last administered on 07/03/18at 17:32; Admin Dose 0.5 MG; Start 07/01/18 at 14:00 Amiodarone HCl (Cordarone) 200 mg Q8 GTB Last administered on 07/06/18 05:52; Admin Dose 200 MG; Start 07/05/18 at 22:00 Metoprolol Tartrate (Lopressor) 50 mg Q8 GTB Last administered on 07/06/18at 08:36; Admin Dose 50 MG; Start 07/05/18 at 22:00 MANN VALDEZ MD July 06, 2018 12:21
--- NOTE | 2018-07-06 14:06 | PN ---
Date/Time of Note Date/Time of Note DATE: 07/06/18 TIME: 14:04 Assessment/Plan VTE Prophylaxis Risk score (from [facility])>0 risk: 8 SCD applied (from [facility]): Yes Pharmacological prophylaxis: NA/contraindicated Pharm contraindication: bleeding Lines/Catheters IV Catheter Type (from [facility]): PICC Line Central line still needed: Yes Urinary Cath still in place: Yes Reason Cath still needed: urinary retention Assessment/Plan Hospital Course Patient continues on ventilatory support without distress, no acute issues, discussed with JAYANT Hicks. Assessment/Plan -MDR Klebsiella urinary tract infection, completed treatment with amikacin. Dr. Doyle is following in infectious consultation. -Atrial fibrillation was rapid ventricular response, patient remains in sinus rhythm continue metoprolol and amiodarone. Dr. Scanlon is following in cardiology consultation. -S/p septic shock secondary to urinary tract infection, anterior neck soft tissue infection, and C. difficile colitis. -C-diff colitis, continue G-tube Vanco at the taper doses, -Acute respiratory failure requiring intubation and ventilatory support. Dr. Lambert is following in pulmonology consultation. -S/p tracheostomy on 05/29/18. -Acute kidney injury on chronic kidney disease. Started on HD this admission. Dr. Mckeon is following in nephrology consultation. -Anemia of chronic inflammation, stool for OB is negative, status post blood transfusion. Continue Epogen. -Metabolic acidosis, resolved. -Acute diastolic congestive heart failure. -Paroxysmal atrial fibrillation -COPD -Dysphagia with PEG. -G-tube mild malfunction, changed by GI Dr. Carolina is following in gastroenterology consultation. -Obesity Further recommendations based on clinical course. Plan of care discussed with Dr. Eisenberg. Result Diagram: 07/03/18 0551 Exam/Review of Systems Exam Vitals Vital Signs Date Temp Pulse Resp B/P (MAP) Pulse Ox O2 O2 Flow FiO2 Time Delivery Rate 07/06/18 68 12:09 07/06/18 98.0 23 103/52 100 11:41 (69) 07/06/18 30 11:17 07/04/18 Mechanical 16:22 Ventilator Trach Collar Intake and Output 07/05/18 07/05/18 07/06/18 1515:00 23:00 07:00 IntakeIntake Total 700 ml 680 ml OutputOutput Total 800 ml 950 ml BalanceBalance -100 ml -270 ml Exam Constitutional: alert, oriented Neck: other (Tracheostomy) Respiratory: diminished breath sounds Cardiovascular: regular rate and rhythm Gastrointestinal: soft, non-tender, other (G-tube) Extremities: normal pulses Neurological: nl mental status Medications Medication Current Medications IV Flush (NS 10 ml) 10 ml PRN IV ; Start 05/06/18 at 20:30 Ascorbic Acid (Vitamin C) 500 mg DAILY GTB Last administered on 07/06/18 08:35; Admin Dose 500 MG; Start 05/07/18 at 09:00 Albuterol/ Ipratropium (Duoneb) 3 ml Q2H RESP THERAPY PRN HHN SHORTNESS OF BREATH Last administered on 06/30/18 19:30; Admin Dose 3 ML; Start 05/06/18 at 23:30 Zinc Sulfate (Zinc Sulfate) 220 mg DAILY GTB Last administered on 07/06/18 08:35; Admin Dose 220 MG; Start 05/07/18 at 09:00 Ondansetron HCl (Zofran Tab) 4 mg Q6H PRN GTB NAUSEA AND/OR VOMITING Last administered on 05/31/18 16:47; Admin Dose 4 MG; Start 05/07/18 at 00:15 Multivitamins (Multivitamin) 30 ml DAILY GTB Last administered on 07/06/18 08:35; Admin Dose 30 ML; Start 05/07/18 at 09:00 [facility] This patient goldman... PRN PRN XX WOUND CARE; Start 05/09/18 at 17:00 Spironolactone (Aldactone) 50 mg DAILY GTB Last administered on 07/06/18 08:35; Admin Dose 50 MG; Start 05/21/18 at 09:00 Famotidine (Pepcid) 20 mg DAILY PEG Last administered on 07/06/18 08:35; Admin Dose 20 MG; Start 05/23/18 at 09:00 Morphine Sulfate (morphine) 6 mg Q4H PRN PEG SEVERE PAIN LEVEL 7-10 Last administered on 07/05/18 05:27; Admin Dose 6 MG; Start 05/22/18 at 17:00 Acetaminophen (Tylenol Tab) 650 mg Q4H PRN PO MILD PAIN(1-3)OR ELEVATED TEMP Last administered on 06/10/18 21:44; Admin Dose 650 MG; Start 05/31/18 at 13:00 Metoclopramide HCl (Reglan) 5 mg Q6 IV Last administered on 07/06/18 05:52; Admin Dose 5 MG; Start 05/31/18 at 13:00 Collagenase (Santyl) 1 applic DAILY TOP Last administered on 07/05/18 08:59; Admin Dose 1 APPLIC; Start 06/01/18 at 09:00 Clonidine (Catapres) 0.1 mg Q6H PRN PO ELEVATED BLOOD PRESSURE Last administered on 07/04/18 18:04; Admin Dose 0.1 MG; Start 06/03/18 at 03:30 Bumetanide (Bumex) 1 mg BID DIURETICS GTB Last administered on 07/06/18 05:52; Admin Dose 1 MG; Start 06/11/18 at 18:00 Collagenase (Santyl) 1 applic PRN PRN TOP WHEN SOILED; Start 06/13/18 at 01:00 Nystatin (Nystatin Powder) 1 applic BID TOP Last administered on 07/06/18 08:37; Admin Dose 1 APPLIC; Start 06/13/18 at 14:00 Epoetin Zen-epbx (RETACRIT(esrd)) 20,000 unit Tu@1700 SC Last administered on 06/30/18 17:46; Admin Dose 20,000 UNIT; Start 06/16/18 at 18:30 Miscellaneous Information 1 ea NOTE XX ; Start 06/26/18 at 08:00 Dicyclomine HCl (Bentyl) 20 mg Q8 PO Last administered on 07/06/18 05:52; Admin Dose 20 MG; Start 06/27/18 at 22:00 Cholestyramine Resin (Questran Light) 4 gm 0600,1200,1800,2300 GTB Last administered on 07/06/18 05:54; Admin Dose 4 GM; Start 06/27/18 at 18:00 Lorazepam (Ativan) 0.5 mg Q4 PRN IV ANXIETY Last administered on 07/03/18 17:32; Admin Dose 0.5 MG; Start 07/01/18 at 14:00 Amiodarone HCl (Cordarone) 200 mg Q8 GTB Last administered on 5/20/19at 05:52; Admin Dose 200 MG; Start 07/05/18 at 22:00 Metoprolol Tartrate (Lopressor) 50 mg Q8 GTB Last administered on 07/06/18at 08:36; Admin Dose 50 MG; Start 07/05/18 at 22:00 GRISLEDA DENNIS July 06, 2018 14:06
[2018-07-06] MEDS: ACETAMINOPHEN 325 MG TAB PO PRN (21:25)
[2018-07-07] VITALS (21 sets, daily range): BP systolic 101–122; BP diastolic 46–66; PULSE 61–78; RESP 17–26
[2018-07-07] MEDS: METOCLOPRAMIDE 10 MG INJ IV SCH ×4 (05:25→23:18)
[2018-07-07] MEDS: BUMETANIDE 1 MG TAB GTB SCH (05:25)
[2018-07-07] MEDS: METOPROLOL 50 MG TAB GTB SCH ×3 (05:26→21:46)
[2018-07-07] MEDS: AMIODARONE 200 MG TAB GTB SCH ×3 (05:26→21:45)
[2018-07-07] MEDS: DICYCLOMINE 10 MG CAP PO SCH ×3 (05:28→21:46)
[2018-07-07] MEDS: CHOLESTYRAMINE (LIGHT) 4 GM PACKET GTB SCH ×4 (05:42→23:44)
--- NOTE | 2018-07-07 08:43 | CONS ---
Assessment/Plan Assessment/Plan Hospital Course (Demo Recall) 73 yo female 1. ABD pain 2. Renal failure.- on HD 3. Vent dependent resp failure 4. Chronic obstructive pulmonary disease. 5. Bipolar. 6. Paroxysmal atrial fibrillation. 7. Anemia of chronic disease. 8. CHF 9. Diarrhea 11. Diarrhea -s/p c diff colitis -taper off of vanco -resolved 12. H/O deep esophageal ulcer 13. Dysphagia with g tube 14. Anemia of chronic disease 15. UTI with positive cx PLAN: Continue with reglan and pepcid and bentyl Monitor tube feeds residuals q 6 hour FOB Pt examined and plan of care discussed with Dr Carolina Consultation Date/Type/Reason Admit Date/Time May 06, 2018 at 17:38 Initial Consult Date 05/10/18 Requesting Provider: ROLAND GIRON MD Date/Time of Note DATE: 07/07/18 TIME: 08:42 24 HR Interval Summary Free Text/Dictation No acute changes. Denies abdominal pain. C/O generalized pain. HH has been going down slightly. Exam/Review of Systems Exam Vitals Vital Signs Date Temp Pulse Resp B/P (MAP) Pulse Ox O2 O2 Flow FiO2 Time Delivery Rate 07/07/18 98.0 67 18 104/49 100 07:52 (67) 07/07/18 30 05:05 07/04/18 Mechanical 16:22 Ventilator Trach Collar Intake and Output 07/06/18 07/06/18 07/07/18 1515:00 23:00 07:00 IntakeIntake Total 580 ml 490 ml OutputOutput Total 875 ml 1500 ml BalanceBalance -295 ml -1010 ml Constitutional: alert, oriented Psych: no complaints Head: normocephalic Eyes: PERRL Respiratory: normal air movement Cardiovascular: regular rate and rhythm Gastrointestinal: soft, bowel sounds, tender Neurological: nl mental status Results Result Diagram: 07/07/18 0543 Results 24hrs Laboratory Tests Test 07/07/18 05:43 Sodium Level 137 Potassium Level 5.0 Chloride Level 115 H Carbon Dioxide Level 11 L Anion Gap 11 Blood Urea Nitrogen 104 H Creatinine 1.97 H Est Glomerular Filtrat Rate mL/min Glucose Level 98 Calcium Level 10.3 H Phosphorus Level 4.7 Magnesium Level 2.0 Medications Medication Current Medications IV Flush (NS 10 ml) 10 ml PRN IV ; Start 05/06/18 at 20:30 Ascorbic Acid (Vitamin C) 500 mg DAILY GTB Last administered on 07/06/18 08:35; Admin Dose 500 MG; Start 05/07/18 at 09:00 Albuterol/ Ipratropium (Duoneb) 3 ml Q2H RESP THERAPY PRN HHN SHORTNESS OF BREATH Last administered on 06/30/18 19:30; Admin Dose 3 ML; Start 05/06/18 at 23:30 Zinc Sulfate (Zinc Sulfate) 220 mg DAILY GTB Last administered on 07/06/18 08:35; Admin Dose 220 MG; Start 05/07/18 at 09:00 Ondansetron HCl (Zofran Tab) 4 mg Q6H PRN GTB NAUSEA AND/OR VOMITING Last administered on 05/31/18 16:47; Admin Dose 4 MG; Start 05/07/18 at 00:15 Multivitamins (Multivitamin) 30 ml DAILY GTB Last administered on 07/06/18 08:35; Admin Dose 30 ML; Start 05/07/18 at 09:00 Miscellaneous Information (Pending Santyl Order For Wound Care) This patient goldman... PRN PRN XX WOUND CARE; Start 05/09/18 at 17:00 Spironolactone (Aldactone) 50 mg DAILY GTB Last administered on 07/06/18 08:35; Admin Dose 50 MG; Start 05/21/18 at 09:00 Famotidine (Pepcid) 20 mg DAILY PEG Last administered on 07/06/18 08:35; Admin Dose 20 MG; Start 05/23/18 at 09:00 Morphine Sulfate (morphine) 6 mg Q4H PRN PEG SEVERE PAIN LEVEL 7-10 Last administered on 07/05/18 05:27; Admin Dose 6 MG; Start 05/22/18 at 17:00 Acetaminophen (Tylenol Tab) 650 mg Q4H PRN PO MILD PAIN(1-3)OR ELEVATED TEMP Last administered on 07/06/18 21:25; Admin Dose 650 MG; Start 05/31/18 at 13:00 Metoclopramide HCl (Reglan) 5 mg Q6 IV Last administered on 07/07/18 05:25; Admin Dose 5 MG; Start 05/31/18 at 13:00 Collagenase (Santyl) 1 applic DAILY TOP Last administered on 07/05/18 08:59; Admin Dose 1 APPLIC; Start 06/01/18 at 09:00 Clonidine (Catapres) 0.1 mg Q6H PRN PO ELEVATED BLOOD PRESSURE Last administered on 07/04/18 18:04; Admin Dose 0.1 MG; Start 06/03/18 at 03:30 Bumetanide (Bumex) 1 mg BID DIURETICS GTB Last administered on 07/07/18 05:25; Admin Dose 1 MG; Start 06/11/18 at 18:00; Status Hold Collagenase (Santyl) 1 applic PRN PRN TOP WHEN SOILED; Start 06/13/18 at 01:00 Nystatin (Nystatin Powder) 1 applic BID TOP Last administered on 07/06/18 21:26; Admin Dose 1 APPLIC; Start 06/13/18 at 14:00 Epoetin Zen-epbx (RETACRIT(esrd)) 20,000 unit Tu@1700 SC Last administered on 06/30/18 17:46; Admin Dose 20,000 UNIT; Start 06/16/18 at 18:30 Miscellaneous Information 1 ea NOTE XX ; Start 06/26/18 at 08:00 Dicyclomine HCl (Bentyl) 20 mg Q8 PO Last administered on 07/07/18 05:28; Admin Dose 20 MG; Start 06/27/18 at 22:00 Cholestyramine Resin (Questran Light) 4 gm 0600,1200,1800,2300 GTB Last administered on 07/07/18 05:42; Admin Dose 4 GM; Start 06/27/18 at 18:00 Lorazepam (Ativan) 0.5 mg Q4 PRN IV ANXIETY Last administered on 07/03/18 17:32; Admin Dose 0.5 MG; Start 07/01/18 at 14:00 Amiodarone HCl (Cordarone) 200 mg Q8 GTB Last administered on 07/07/18 05:26; Admin Dose 200 MG; Start 07/05/18 at 22:00 Metoprolol Tartrate (Lopressor) 50 mg Q8 GTB Last administered on 07/07/18 05:26; Admin Dose 50 MG; Start 07/05/18 at 22:00 Albumin Human 100 ml @ 100 mls/hr Q8H IV ; Start 07/07/18 at 08:30; Stop 07/08/18 at 01:29 SHAHEEN GAMBOA July 07, 2018 08:43
[2018-07-07] MEDS: COLLAGENASE 5 GM (UD JAR) TOP SCH (08:44)
[2018-07-07] MEDS: MULTIVITAMINS 30 ML CUP GTB SCH (08:44)
[2018-07-07] MEDS: ZINC SULFATE 220 MG CAP GTB SCH (08:45)
[2018-07-07] MEDS: SPIRONOLACTONE 25 MG TAB GTB SCH (08:45)
[2018-07-07] MEDS: ASCORBIC ACID 500 MG TAB GTB SCH (08:45)
[2018-07-07] MEDS: FAMOTIDINE 20 MG TAB PEG SCH (08:45)
[2018-07-07] MEDS: BALSAM PERU/CASTOR OIL 60 GM TUBE TOP SCH ×2 (08:46→22:17)
[2018-07-07] MEDS: NYSTATIN 30 GM POWDER BTL TOP SCH ×2 (08:46→22:16)
[2018-07-07] MEDS: ALBUMIN HUMAN 25% 100 ML IV SCH ×2 (08:53→18:31)
--- NOTE | 2018-07-07 08:55 | PN ---
DATE: 07/07/2018 SUBJECTIVE: The patient is stable, no events overnight. No nausea, no vomiting. OBJECTIVE: VITAL SIGNS: Blood pressure is 104/49, pulse 67, respirations 18, temperature 98.0. HEENT: Head is normocephalic. NECK: Supple. HEART: Regular rate. LUNGS: Show diminished breath sounds at the base. ABDOMEN: Soft, nontender to palpation without rebound or guarding. EXTREMITIES: Negative for clubbing, cyanosis, no edema. DERMATOLOGIC: No rashes. MUSCULOSKELETAL: No joint effusion. NEUROLOGIC: No change in exam. MEDICATIONS: The patient's medications have been reviewed. LABORATORY DATA: From 07/07/2018 was reviewed. ASSESSMENT AND PLAN: 1. Nonoliguric acute kidney injury on top of chronic kidney disease stage IIIb with previous baselin e creatinine around 2.0 mg/dL. Etiology of acute kidney injury is secondary to acute tubular necrosi s. The patient is status post hemodialysis. The patient, however, does show evidence of a progressi ve azotemia. This is likely due to diuretic therapy. Plan is to discontinue diuretic therapy. We w ill monitor renal function closely. 2. Volume overload, improved. We will hold diuretics in the setting of progressive azotemia. 3. Hypernatremia, resolved. 4. Hypomagnesemia. Continue to monitor. 5. Anemia. Continue to monitor hemoglobin and hematocrit levels. 6. Mineral bone disorder, monitor calcium and phosphorus levels. 7. Ventilator-dependent respiratory failure. Vent settings have been reviewed. Continue to monitor . 8. Sepsis, status post shock. The patient is completing antibiotic course. 9. Clostridium difficile. We will continue to monitor. The patient is completing a course of vanco mycin. 10. Lower extremity wounds. Continue wound care. 11. Dysphagia. Continue tube feeding. 12. Encephalopathy, resolved. Dictated By: JEANA BANSAL DO NR/NTS Conf#: [id number] DID#: [id number] CC: ROLAND GIRON MD; QUINTEN UMAÑA MD;*EndCC*
[2018-07-07] MEDS: SODIUM BICARBONATE (IV ADD) 150 MEQ in DEXTROSE 5% 1,000 ML IV SCH (12:10)
--- NOTE | 2018-07-07 12:33 | CONS ---
Assessment/Plan Assessment/Plan Hospital Course (Demo Recall) # sepsis, leukocytosis, SIRS, pulmonary, cardiac - recurrent leukocytosis due to recurrent UTI, improved - s/p septic shock due to pneumonia and C diff colitis - acute on chronic hypoxic respiratory failure, persistent - s/p reintubation 05/12/2018 - s/p re-do trach on 05/29/2018 - recurrent colonization of the anterior neck wound with ESBL+kleb, MRSA, GBS, corynebacteria on 05/06/2018, s/p meropenem - h/o pneumonia vs. colonization of the airway by pseudomonas and ESBL+klebsiella - h/o possible, recurrent HCAP due to pseudomonas and ESBL+klebsiella - h/o recurrent HCAP due to MRSA and Enterobacter (culture of tracheal aspirate on 07/16/2017 that was collected at [facility]) . Pt took vancomycin and ceftazidime - h/o decannulation prior to admission - h/o tracheostomy on 06/11/2017 - h/o SIRS from UGIB in 2018 - h/o thoracentesis on 07/18/2017, transudative (protein <2, LDH 279) - h/o bleeding from the trach site in 2018 - h/o septic shock due to pneumonia, ARDS, bacteremia, fungemia in 2018 - h/o ARDS in 2018 - h/o smoking - COPD - h/o ILD per medical record - h/o PAF, improved # GI - possible ileus or enterocolitis on CT abd/pel 06/15/2018 - C diff colitis, diagnosed on 05/11/2018. Pt's on pGT vancomycin induction followed by taper (05/11/2018-); Pt previously took IV metronidazole (05/11/2018- 05/29/2018; restart 05/30/2018-06/05/18) too - h/o intermittent diarrhea, Pt had multiple negative C. diff tests at [facility] at OSH in the past; none was positive until 05/11/2018 - dysphagia - h/o PEG placement 06/13/2018 - protein calorie malnutrition - h/o coffee ground emesis/UGIB on 12/23/2017 due to deep ulceration of distal esophagus and gastritis on EGD 12/26/2017. No e/o H. pylori - h/o possible appendicitis on CT on 11/22/2017, Pt took ertapenem (11/24/2017-12/01/2017) - h/o extensive adhesions lower abdominal and pelvis between small bowel to each other and to colon and to abdominal wall, anterior pelvic wall chronic abscess secondary to probably an old perforated diverticulitis, torsion of small bowel around these dense adhesion causing multiple obstructive points - h/o laparoscopic exploration and extensive lysis of adhesions and drainage of anterior pelvic wall abscess 09/16/2017. Cultures were negative, no e/o malignancy. 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 S/p renally dosed amikacin for klebsiella in her urine culture (06/17-06/22/2018) - UTI due to pseudomonas and ESBL+klebsiella on 06/09/2018, Pt took one dose of fosfomycin on 06/10/2018 and cipro 06/12-06/15/2018 - anasarca - started on HD on 05/15/2018, via Juan in R groin - recurrent NATHAN on CKD - 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 Her strain of CRE was sensitive to colistin, Avycaz, and Vabomere but resistant to Zerbaxa (reported on 05/19/2018) - metabolic acidosis - adrenal insufficiency - h/o vaginal bleed in 2018 - h/o colonization of urinary tract by ESBL+klebsiella, VRE - h/o recurrent, symptomatic UTI due to carbapenem-resistant kleb (MDR strain) per urine culture 10/04/17, 10/09/17, 10/21/2017, P took colistin (10/09/2017- 10/15/2017), fosfomycin for carbapenemase-producing klebsiella and VRE on 10/25/2017 and 10/28/2017 - h/o funguria - h/o urinary retention # fungemia, bacteremia 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; Pt declined surgery for MVR per outside medical records; TTE 07/01/17 did not mention any thrombus; s/p voriconazole (05/25/2017-08/01/2017) - h/o bacteremia due to MSSA and proteus s/p ceftriaxone; repeat blood cultures were negative on 06/14/2017 # musculoskeletal and dermatological - L hand pain - dry skin - chronic wound of LLE - h/o infection of wound of LLE - h/o debridement of wound of LLE on 08/06/2017 - h/o recurrent herpes labialis, Pt took acyclovir, valacyclovir - h/o Osler's nodes (eschar) of R toes with erythematous skin; desquamation of the skin and open lacerations on R plantar foot. improved. Probable manifestation of endocarditis. Pt declined MRI on 08/06/2017 - h/o infection of R toes due to pseudomonas. coagulase negative Staph likely a colonizer - h/o intertrigo of the groin, resolved with nystatin powder - h/o scabies, locally crusted lesion over L scapula, s/p permethrin cream and pGT ivermectin on 08/11/2017, 08/12/2017, 08/19/2017. Repeat skin scraping on 08/21/2017 was negative for scabies # psych, neuro - decreased hearing b/l - s/p acute toxic metabolic encephalopathy - h/o critical illness polyneuropathy - anxiety/depression, bipolar d/o, seen by Psychiatry in the past - chronic pain syndrome - h/o medical non-compliance: she would refuse her medications, treatment and straight catheterization in 2018 # hematological, vascular - chronic anemia requiring blood transfusion intermittently - macrocytic anemia - aneurysmal dilatation of the distal aorta visualized on CT 06/15/2018 - PVD Recommendations: - Monitor closely off systemic antibiotics. S/p renally dosed amikacin for klebsiella in her urine culture (06/17-06/22/2018) - Completed po vanco taper Above plan d/w via real5D. Consultation Date/Type/Reason Admit Date/Time May 06, 2018 at 17:38 Initial Consult Date 05/10/18 Requesting Provider: ROLAND GIRON MD Date/Time of Note DATE: 07/07/18 TIME: 12:33 24 HR Interval Summary Free Text/Dictation Per d/w nurse pt is not having diarrhea. Detailed Summary Additional Comments Pt sleeping. Exam/Review of Systems Exam Vitals Vital Signs Date Temp Pulse Resp B/P (MAP) Pulse Ox O2 O2 Flow FiO2 Time Delivery Rate 07/07/18 98.5 62 17 102/46 100 11:26 (64) 07/07/18 30 09:29 07/04/18 Mechanical 16:22 Ventilator Trach Collar Intake and Output 07/06/18 07/06/18 07/07/18 1515:00 23:00 07:00 IntakeIntake Total 580 ml 490 ml OutputOutput Total 875 ml 1500 ml BalanceBalance -295 ml -1010 ml Exam Constitutional: alert, well developed, non-verbal, frail, obese Psych: nl mood/affect Head: normocephalic, atraumatic Eyes: nl conjunctiva, nl lids, nl sclera ENMT: nl external ears & nose, nl nasal mucosa & septum Neck: supple, non-tender, other (on mechanical vent via trach, trach midline, site is c/d/i) Respiratory: normal air movement, diminished breath sounds No wheezing Cardiovascular: regular rate and rhythm, nl pulses Gastrointestinal: soft, non-tender, bowel sounds (normoactive ), No distended, No firm Genitourinary - Female: other HD Musculoskeletal: muscle weakness, other (julia foot drop) Extremities: normal pulses, edema (BUE, BLE +1); No tenderness Neurological: Awake, alert, communicates via mouthing words, follows commands Skin: nl turgor Results Result Diagram: 07/07/18 0543 Results 24hrs Laboratory Tests Test 07/07/18 05:43 07/07/18 08:19 Sodium Level 137 Potassium Level 5.0 Chloride Level 115 H Carbon Dioxide Level 11 L Anion Gap 11 Blood Urea Nitrogen 104 H Creatinine 1.97 H Est Glomerular Filtrat Rate mL/min Glucose Level 98 Calcium Level 10.3 H Phosphorus Level 4.7 Magnesium Level 2.0 Blood Gas Specimen Source Blood arterial Arterial Blood Date Drawn 07/07/2018 8:45:56 AM Arterial Blood pH (Temp corrected) 7.163 *L Arterial Blood pCO2 (Temp correct) 28.7 L Arterial Blood pO2 (Temp corrected) 115.2 H Arterial Blood HCO3 10.1 L Arterial Blood Base Excess -17.2 L Arterial Blood Oxygen Saturation 97.6 Steven Test ACCEPTAB Arterial Blood Gas Puncture Site Right Radial Arterial Blood Carboxyhemoglobin 0.5 Arterial Blood Methemoglobin 0.4 Blood Gas A-a O2 Differential 65.0 H Oxyhemoglobin Percent 96.7 Blood Gas Temperature 37.0 Blood Gas Respiration Rate 20.0 Blood Gas Actual Respiration Rate 24 Blood Gas Modality VENT - AC FiO2 30.0 Blood Gas Tidal Volume 500.0 Blood Gas Low PEEP Setting 5.0 Blood Gas Critical Value Read Back BRUCE RN Blood Gas Notified Whom TM Blood Gas Notified Time 07/07/2018 8:55:13 AM Medications Medication Current Medications IV Flush (NS 10 ml) 10 ml PRN IV ; Start 05/06/18 at 20:30 Ascorbic Acid (Vitamin C) 500 mg DAILY GTB Last administered on 07/07/18 08:45; Admin Dose 500 MG; Start 05/07/18 at 09:00 Albuterol/ Ipratropium (Duoneb) 3 ml Q2H RESP THERAPY PRN HHN SHORTNESS OF BREATH Last administered on 06/30/18 19:30; Admin Dose 3 ML; Start 05/06/18 at 23:30 Zinc Sulfate (Zinc Sulfate) 220 mg DAILY GTB Last administered on 07/07/18 08:45; Admin Dose 220 MG; Start 05/07/18 at 09:00 Ondansetron HCl (Zofran Tab) 4 mg Q6H PRN GTB NAUSEA AND/OR VOMITING Last administered on 05/31/18 16:47; Admin Dose 4 MG; Start 05/07/18 at 00:15 Multivitamins (Multivitamin) 30 ml DAILY GTB Last administered on 07/07/18 08:44; Admin Dose 30 ML; Start 05/07/18 at 09:00 Miscellaneous Information (Pending Santyl Order For Wound Care) This patient goldman... PRN PRN XX WOUND CARE; Start 05/09/18 at 17:00 Spironolactone (Aldactone) 50 mg DAILY GTB Last administered on 07/07/18 08:45; Admin Dose 50 MG; Start 05/21/18 at 09:00 Famotidine (Pepcid) 20 mg DAILY PEG Last administered on 07/07/18 08:45; Admin Dose 20 MG; Start 05/23/18 at 09:00 Morphine Sulfate (morphine) 6 mg Q4H PRN PEG SEVERE PAIN LEVEL 7-10 Last administered on 07/05/18 05:27; Admin Dose 6 MG; Start 05/22/18 at 17:00 Acetaminophen (Tylenol Tab) 650 mg Q4H PRN PO MILD PAIN(1-3)OR ELEVATED TEMP Last administered on 07/06/18 21:25; Admin Dose 650 MG; Start 05/31/18 at 13:00 Metoclopramide HCl (Reglan) 5 mg Q6 IV Last administered on 07/07/18 12:09; Admin Dose 5 MG; Start 05/31/18 at 13:00 Collagenase (Santyl) 1 applic DAILY TOP Last administered on 07/07/18 08:44; Admin Dose 1 APPLIC; Start 06/01/18 at 09:00 Clonidine (Catapres) 0.1 mg Q6H PRN PO ELEVATED BLOOD PRESSURE Last administered on 07/04/18 18:04; Admin Dose 0.1 MG; Start 06/03/18 at 03:30 Bumetanide (Bumex) 1 mg BID DIURETICS GTB Last administered on 07/07/18 05:25; Admin Dose 1 MG; Start 06/11/18 at 18:00; Status Hold Collagenase (Santyl) 1 applic PRN PRN TOP WHEN SOILED; Start 06/13/18 at 01:00 Nystatin (Nystatin Powder) 1 applic BID TOP Last administered on 07/07/18 08:46; Admin Dose 1 APPLIC; Start 06/13/18 at 14:00 Epoetin Zen-epbx (RETACRIT(esrd)) 20,000 unit Tu@1700 SC Last administered on 5/14/19at 17:46; Admin Dose 20,000 UNIT; Start 06/16/18 at 18:30 Miscellaneous Information 1 ea NOTE XX ; Start 06/26/18 at 08:00 Dicyclomine HCl (Bentyl) 20 mg Q8 PO Last administered on 07/07/18 05:28; Admin Dose 20 MG; Start 06/27/18 at 22:00 Cholestyramine Resin (Questran Light) 4 gm 0600,1200,1800,2300 GTB Last administered on 07/07/18 12:09; Admin Dose 4 GM; Start 06/27/18 at 18:00 Lorazepam (Ativan) 0.5 mg Q4 PRN IV ANXIETY Last administered on 07/03/18 17:32; Admin Dose 0.5 MG; Start 07/01/18 at 14:00 Amiodarone HCl (Cordarone) 200 mg Q8 GTB Last administered on 07/07/18 05:26; Admin Dose 200 MG; Start 07/05/18 at 22:00 Metoprolol Tartrate (Lopressor) 50 mg Q8 GTB Last administered on 07/07/18 05:26; Admin Dose 50 MG; Start 07/05/18 at 22:00 Albumin Human 100 ml @ 100 mls/hr Q8H IV Last administered on 07/07/18 08:53; Admin Dose 100 MLS/HR; Start 07/07/18 at 08:30; Stop 07/08/18 at 01:29 Sodium Bicarbonate 150 meq/Dextrose 1,150 ml @ 50 mls/hr Q23H IV Last administered on 07/07/18at 12:10; Admin Dose 50 MLS/HR; Start 07/07/18 at 11:00 ARANZA FAY NP July 07, 2018 12:33
--- NOTE | 2018-07-07 15:27 | PN ---
Date/Time of Note Date/Time of Note DATE: 07/07/18 TIME: 15:24 Assessment/Plan VTE Prophylaxis Risk score (from [facility])>0 risk: 9 SCD applied (from [facility]): Yes Pharmacological prophylaxis: NA/contraindicated Pharm contraindication: anticoag not tolerated Lines/Catheters [facility] P[facility] Line Central line still needed: Yes Urinary Cath still in place: Yes Reason Cath still needed: urinary retention Assessment/Plan Hospital Course No acute events overnight, patient continues on vent without distress, tolerates G-tube feeding, formula was changed to diabetes or due to shortage with nova source. Assessment/Plan -MDR Klebsiella urinary tract infection, completed treatment with amikacin. Dr. Doyle is following in infectious consultation. -Atrial fibrillation was rapid ventricular response, patient remains in sinus rhythm continue metoprolol and amiodarone. Dr. Scanlon is following in cardiology consultation. -S/p septic shock secondary to urinary tract infection, anterior neck soft tissue infection, and C. difficile colitis. -C-diff colitis, continue G-tube Vanco at the taper doses, -Acute respiratory failure requiring intubation and ventilatory support. Dr. Lambert is following in pulmonology consultation. -S/p tracheostomy on 05/29/18. -Acute kidney injury on chronic kidney disease. Started on HD this admission. Dr. Mckeon is following in nephrology consultation. -Anemia of chronic inflammation, stool for OB is negative, status post blood t ransfusion. Continue Epogen. -Metabolic acidosis, resolved. -Acute diastolic congestive heart failure. -Paroxysmal atrial fibrillation -COPD -Dysphagia with PEG. -G-tube mild malfunction, changed by GI Dr. Carolina is following in gastroenterology consultation. -Obesity Further recommendations based on clinical course. Plan of care discussed with Dr. Eisenberg. Result Diagram: 07/07/18 0543 Results 24hrs Laboratory Tests Test 07/07/18 05:43 07/07/18 08:19 Sodium Level 137 Potassium Level 5.0 Chloride Level 115 H Carbon Dioxide Level 11 L Anion Gap 11 Blood Urea Nitrogen 104 H Creatinine 1.97 H Est Glomerular Filtrat Rate mL/min Glucose Level 98 Calcium Level 10.3 H Phosphorus Level 4.7 Magnesium Level 2.0 Blood Gas Specimen Source Blood arterial Arterial Blood Date Drawn 07/07/2018 8:45:56 AM Arterial Blood pH (Temp corrected) 7.163 *L Arterial Blood pCO2 (Temp correct) 28.7 L Arterial Blood pO2 (Temp corrected) 115.2 H Arterial Blood HCO3 10.1 L Arterial Blood Base Excess -17.2 L Arterial Blood Oxygen Saturation 97.6 Steven Test ACCEPTAB Arterial Blood Gas Puncture Site Right Radial Arterial Blood Carboxyhemoglobin 0.5 Arterial Blood Methemoglobin 0.4 Blood Gas A-a O2 Differential 65.0 H Oxyhemoglobin Percent 96.7 Blood Gas Temperature 37.0 Blood Gas Respiration Rate 20.0 Blood Gas Actual Respiration Rate 24 Blood Gas Modality VENT - AC FiO2 30.0 Blood Gas Tidal Volume 500.0 Blood Gas Low PEEP Setting 5.0 Blood Gas Critical Value Read Back BRUCE SABA Blood Gas Notified Whom TM Blood Gas Notified Time 07/07/2018 8:55:13 AM Exam/Review of Systems Exam Vitals Vital Signs Date Temp Pulse Resp B/P (MAP) Pulse Ox O2 O2 Flow FiO2 Time Delivery Rate 07/07/18 64 22 100 30 13:59 07/07/18 98.5 102/46 11:26 (64) 07/04/18 Mechanical 16:22 Ventilator Trach Collar Intake and Output 07/06/18 07/06/18 07/07/18 1515:00 23:00 07:00 IntakeIntake Total 580 ml 490 ml OutputOutput Total 875 ml 1500 ml BalanceBalance -295 ml -1010 ml Exam Constitutional: alert, oriented Neck: other (Tracheostomy) Respiratory: diminished breath sounds Cardiovascular: regular rate and rhythm Gastrointestinal: soft, non-tender, other (G-tube) Extremities: normal pulses Neurological: nl mental status Results Results 24hrs Laboratory Tests Test 07/07/18 05:43 07/07/18 08:19 Sodium Level 137 Potassium Level 5.0 Chloride Level 115 H Carbon Dioxide Level 11 L Anion Gap 11 Blood Urea Nitrogen 104 H Creatinine 1.97 H Est Glomerular Filtrat Rate mL/min Glucose Level 98 Calcium Level 10.3 H Phosphorus Level 4.7 Magnesium Level 2.0 Blood Gas Specimen Source Blood arterial Arterial Blood Date Drawn 07/07/2018 8:45:56 AM Arterial Blood pH (Temp corrected) 7.163 *L Arterial Blood pCO2 (Temp correct) 28.7 L Arterial Blood pO2 (Temp corrected) 115.2 H Arterial Blood HCO3 10.1 L Arterial Blood Base Excess -17.2 L Arterial Blood Oxygen Saturation 97.6 Steven Test ACCEPTAB Arterial Blood Gas Puncture Site Right Radial Arterial Blood Carboxyhemoglobin 0.5 Arterial Blood Methemoglobin 0.4 Blood Gas A-a O2 Differential 65.0 H Oxyhemoglobin Percent 96.7 Blood Gas Temperature 37.0 Blood Gas Respiration Rate 20.0 Blood Gas Actual Respiration Rate 24 Blood Gas Modality VENT - AC FiO2 30.0 Blood Gas Tidal Volume 500.0 Blood Gas Low PEEP Setting 5.0 Blood Gas Critical Value Read Back BRUCE SABA Blood Gas Notified Whom TM Blood Gas Notified Time 07/07/2018 8:55:13 AM Medications Medication Current Medications IV Flush (NS 10 ml) 10 ml PRN IV ; Start 05/06/18 at 20:30 Ascorbic Acid (Vitamin C) 500 mg DAILY GTB Last administered on 07/07/18 08:45; Admin Dose 500 MG; Start 05/07/18 at 09:00 Albuterol/ Ipratropium (Duoneb) 3 ml Q2H RESP THERAPY PRN HHN SHORTNESS OF BREATH Last administered on 06/30/18 19:30; Admin Dose 3 ML; Start 05/06/18 at 23:30 Zinc Sulfate (Zinc Sulfate) 220 mg DAILY GTB Last administered on 07/07/18 08:45; Admin Dose 220 MG; Start 05/07/18 at 09:00 Ondansetron HCl (Zofran Tab) 4 mg Q6H PRN GTB NAUSEA AND/OR VOMITING Last administered on 05/31/18 16:47; Admin Dose 4 MG; Start 05/07/18 at 00:15 Multivitamins (Multivitamin) 30 ml DAILY GTB Last administered on 07/07/18 08:44; Admin Dose 30 ML; Start 05/07/18 at 09:00 [facility] This patient goldman... PRN PRN XX WOUND CARE; Start 05/09/18 at 17:00 Spironolactone (Aldactone) 50 mg DAILY GTB Last administered on 07/07/18 08 :45; Admin Dose 50 MG; Start 05/21/18 at 09:00 Famotidine (Pepcid) 20 mg DAILY PEG Last administered on 07/07/18 08:45; Admin Dose 20 MG; Start 05/23/18 at 09:00 Morphine Sulfate (morphine) 6 mg Q4H PRN PEG SEVERE PAIN LEVEL 7-10 Last administered on 07/05/18 05:27; Admin Dose 6 MG; Start 05/22/18 at 17:00 Acetaminophen (Tylenol Tab) 650 mg Q4H PRN PO MILD PAIN(1-3)OR ELEVATED TEMP Last administered on 07/06/18 21:25; Admin Dose 650 MG; Start 05/31/18 at 13:00 Metoclopramide HCl (Reglan) 5 mg Q6 IV Last administered on 07/07/18 12:09; Admin Dose 5 MG; Start 05/31/18 at 13:00 Collagenase (Santyl) 1 applic DAILY TOP Last administered on 07/07/18 08:44; Admin Dose 1 APPLIC; Start 06/01/18 at 09:00 Clonidine (Catapres) 0.1 mg Q6H PRN PO ELEVATED BLOOD PRESSURE Last administered on 07/04/18 18:04; Admin Dose 0.1 MG; Start 06/03/18 at 03:30 Bumetanide (Bumex) 1 mg BID DIURETICS GTB Last administered on 07/07/18 05:25; Admin Dose 1 MG; Start 06/11/18 at 18:00; Status Hold Collagenase (Santyl) 1 applic PRN PRN TOP WHEN SOILED; Start 06/13/18 at 01:00 Nystatin (Nystatin Powder) 1 applic BID TOP Last administered on 07/07/18 08:46; Admin Dose 1 APPLIC; Start 06/13/18 at 14:00 Epoetin Zen-epbx (RETACRIT(esrd)) 20,000 unit Tu@1700 SC Last administered on 06/30/18 17:46; Admin Dose 20,000 UNIT; Start 06/16/18 at 18:30 Miscellaneous Information 1 ea NOTE XX ; Start 06/26/18 at 08:00 Dicyclomine HCl (Bentyl) 20 mg Q8 PO Last administered on 07/07/18 15:10; Admin Dose 20 MG; Start 06/27/18 at 22:00 Cholestyramine Resin (Questran Light) 4 gm 0600,1200,1800,2300 GTB Last administered on 07/07/18 12:09; Admin Dose 4 GM; Start 06/27/18 at 18:00 Lorazepam (Ativan) 0.5 mg Q4 PRN IV ANXIETY Last administered on 07/03/18 17:32; Admin Dose 0.5 MG; Start 07/01/18 at 14:00 Amiodarone HCl (Cordarone) 200 mg Q8 GTB Last administered on 07/07/18 15:10; Admin Dose 200 MG; Start 07/05/18 at 22:00 Metoprolol Tartrate (Lopressor) 50 mg Q8 GTB Last administered on 07/07/18 15:09; Admin Dose 50 MG; Start 07/05/18 at 22:00 Albumin Human 100 ml @ 100 mls/hr Q8H IV Last administered on 07/07/18at 08:53; Admin Dose 100 MLS/HR; Start 07/07/18 at 08:30; Stop 07/08/18 at 01:29 Sodium Bicarbonate 150 meq/Dextrose 1,150 ml @ 50 mls/hr Q23H IV Last administered on 07/07/18at 12:10; Admin Dose 50 MLS/HR; Start 07/07/18 at 11:00 GRISELDA DENNIS July 07, 2018 15:27
[2018-07-07] MEDS: EPOETIN ALFA-EPBX (ESRD) 10,000 UNIT/ML VIAL SC SCH (17:03)
--- NOTE | 2018-07-07 18:15 | CONS ---
Assessment/Plan Assessment/Plan Hospital Course (Demo Recall) Septic as well as hemorrhagic shock-resolved Acute respiratory failure status post intubation and repeat tracheostomy Acute blood loss anemia History of respiratory failure status post decannulation Preserved ejection fraction echocardiogram 05/10/2018 Paroxysmal atrial fibrillation Acute kidney injury History of hypertension-now labile BP -Patient with paroxysmal atrial fibrillation, currently in sinus rhythm -Continue beta-tin and amiodarone and titrate as tolerated -Vent management as per pulmonary -Fluid management and electrolytes as per renal -Antibiotics as per infectious disease -No anticoagulation given recurrent anemia requiring blood transfusions Consultation Date/Type/Reason Admit Date/Time May 06, 2018 at 17:38 Initial Consult Date 05/10/18 Type of Consult Cardiology Requesting Provider: ROLAND GIRON MD Date/Time of Note DATE: 07/07/18 TIME: 18:15 24 HR Interval Summary Free Text/Dictation No shortness of breath, palpitations Exam/Review of Systems Vital Signs Vitals Vital Signs Date Temp Pulse Resp B/P (MAP) Pulse Ox O2 O2 Flow FiO2 Time Delivery Rate 07/07/18 98.6 78 17 118/63 100 16:14 (81) 07/07/18 30 13:59 07/04/18 Mechanical 16:22 Ventilator Trach Collar Intake and Output 07/06/18 07/06/18 07/07/18 1515:00 23:00 07:00 IntakeIntake Total 580 ml 490 ml OutputOutput Total 875 ml 1500 ml BalanceBalance -295 ml -1010 ml Exam Constitutional: alert (No apparent distress) Head: normocephalic Respiratory: other (Coarse breath sounds bilaterally, no wheezing) Cardiovascular: regular rate and rhythm (S1-S2 heard) Gastrointestinal: soft, non-tender, bowel sounds Extremities: edema Labs Result Diagram: 07/07/18 0543 Results 24hrs Laboratory Tests Test 07/07/18 05:43 07/07/18 08:19 Sodium Level 137 Potassium Level 5.0 Chloride Level 115 H Carbon Dioxide Level 11 L Anion Gap 11 Blood Urea Nitrogen 104 H Creatinine 1.97 H Est Glomerular Filtrat Rate mL/min Glucose Level 98 Calcium Level 10.3 H Phosphorus Level 4.7 Magnesium Level 2.0 Blood Gas Specimen Source Blood arterial Arterial Blood Date Drawn 07/07/2018 8:45:56 AM Arterial Blood pH (Temp corrected) 7.163 *L Arterial Blood pCO2 (Temp correct) 28.7 L Arterial Blood pO2 (Temp corrected) 115.2 H Arterial Blood HCO3 10.1 L Arterial Blood Base Excess -17.2 L Arterial Blood Oxygen Saturation 97.6 Steven Test ACCEPTAB Arterial Blood Gas Puncture Site Right Radial Arterial Blood Carboxyhemoglobin 0.5 Arterial Blood Methemoglobin 0.4 Blood Gas A-a O2 Differential 65.0 H Oxyhemoglobin Percent 96.7 Blood Gas Temperature 37.0 Blood Gas Respiration Rate 20.0 Blood Gas Actual Respiration Rate 24 Blood Gas Modality VENT - AC FiO2 30.0 Blood Gas Tidal Volume 500.0 Blood Gas Low PEEP Setting 5.0 Blood Gas Critical Value Read Back BRUCE SABA Blood Gas Notified Whom TM Blood Gas Notified Time 07/07/2018 8:55:13 AM Medications Medications Current Medications IV Flush (NS 10 ml) 10 ml PRN IV ; Start 05/06/18 at 20:30 Ascorbic Acid (Vitamin C) 500 mg DAILY GTB Last administered on 07/07/18 08:45; Admin Dose 500 MG; Start 05/07/18 at 09:00 Albuterol/ Ipratropium (Duoneb) 3 ml Q2H RESP THERAPY PRN HHN SHORTNESS OF BREATH Last administered on 06/30/18 19:30; Admin Dose 3 ML; Start 05/06/18 at 23:30 Zinc Sulfate (Zinc Sulfate) 220 mg DAILY GTB Last administered on 07/07/18 08:45; Admin Dose 220 MG; Start 05/07/18 at 09:00 Ondansetron HCl (Zofran Tab) 4 mg Q6H PRN GTB NAUSEA AND/OR VOMITING Last administered on 05/31/18 16:47; Admin Dose 4 MG; Start 05/07/18 at 00:15 Multivitamins (Multivitamin) 30 ml DAILY GTB Last administered on 07/07/18 08:44; Admin Dose 30 ML; Start 05/07/18 at 09:00 Miscellaneous Information (Pending Santyl Order For Wound Care) This patient goldman... PRN PRN XX WOUND CARE; Start 05/09/18 at 17:00 Spironolactone (Aldactone) 50 mg DAILY GTB Last administered on 07/07/18 08:45; Admin Dose 50 MG; Start 05/21/18 at 09:00 Famotidine (Pepcid) 20 mg DAILY PEG Last administered on 07/07/18 08:45; Admin Dose 20 MG; Start 05/23/18 at 09:00 Morphine Sulfate (morphine) 6 mg Q4H PRN PEG SEVERE PAIN LEVEL 7-10 Last administered on 07/05/18 05:27; Admin Dose 6 MG; Start 05/22/18 at 17:00 Acetaminophen (Tylenol Tab) 650 mg Q4H PRN PO MILD PAIN(1-3)OR ELEVATED TEMP Last administered on 07/06/18 21:25; Admin Dose 650 MG; Start 05/31/18 at 13:00 Metoclopramide HCl (Reglan) 5 mg Q6 IV Last administered on 07/07/18 17:02; Admin Dose 5 MG; Start 05/31/18 at 13:00 Collagenase (Santyl) 1 applic DAILY TOP Last administered on 07/07/18 08:44; Admin Dose 1 APPLIC; Start 06/01/18 at 09:00 Clonidine (Catapres) 0.1 mg Q6H PRN PO ELEVATED BLOOD PRESSURE Last administered on 07/04/18 18:04; Admin Dose 0.1 MG; Start 06/03/18 at 03:30 Bumetanide (Bumex) 1 mg BID DIURETICS GTB Last administered on 07/07/18 05:25; Admin Dose 1 MG; Start 06/11/18 at 18:00; Status Hold Collagenase (Santyl) 1 applic PRN PRN TOP WHEN SOILED; Start 06/13/18 at 01:00 Nystatin (Nystatin Powder) 1 applic BID TOP Last administered on 07/07/18 08:46; Admin Dose 1 APPLIC; Start 06/13/18 at 14:00 Epoetin Zen-epbx (RETACRIT(esrd)) 20,000 unit Tu@1700 SC Last administered on 07/07/18 17:03; Admin Dose 20,000 UNIT; Start 06/16/18 at 18:30 Miscellaneous Information 1 ea NOTE XX ; Start 06/26/18 at 08:00 Dicyclomine HCl (Bentyl) 20 mg Q8 PO Last administered on 07/07/18 15:10; Admin Dose 20 MG; Start 06/27/18 at 22:00 Cholestyramine Resin (Questran Light) 4 gm 0600,1200,1800,2300 GTB Last administered on 07/07/18 17:02; Admin Dose 4 GM; Start 06/27/18 at 18:00 Lorazepam (Ativan) 0.5 mg Q4 PRN IV ANXIETY Last administered on 07/03/18at 17:32; Admin Dose 0.5 MG; Start 07/01/18 at 14:00 Amiodarone HCl (Cordarone) 200 mg Q8 GTB Last administered on 07/07/18at 15:10; Admin Dose 200 MG; Start 07/05/18 at 22:00 Metoprolol Tartrate (Lopressor) 50 mg Q8 GTB Last administered on 07/07/18at 15:09; Admin Dose 50 MG; Start 07/05/18 at 22:00 Albumin Human 100 ml @ 100 mls/hr Q8H IV Last administered on 07/07/18at 08:53; Admin Dose 100 MLS/HR; Start 07/07/18 at 08:30; Stop 07/08/18 at 01:29 Sodium Bicarbonate 150 meq/Dextrose 1,150 ml @ 50 mls/hr Q23H IV Last administered on 07/07/18at 12:10; Admin Dose 50 MLS/HR; Start 07/07/18 at 11:00 Evangelista Scanlon DO July 07, 2018 18:15
[2018-07-08] VITALS (21 sets, daily range): BP systolic 90–121; BP diastolic 44–58; PULSE 6–88; RESP 19–35
[2018-07-08] MEDS: ALBUMIN HUMAN 25% 100 ML IV SCH (00:48)
[2018-07-08] MEDS: CHOLESTYRAMINE (LIGHT) 4 GM PACKET GTB SCH ×4 (05:08→20:49)
[2018-07-08] MEDS: DICYCLOMINE 10 MG CAP PO SCH ×3 (06:09→20:49)
[2018-07-08] MEDS: METOCLOPRAMIDE 10 MG INJ IV SCH ×3 (06:09→17:43)
[2018-07-08] MEDS: METOPROLOL 50 MG TAB GTB SCH ×3 (06:11→20:48)
[2018-07-08] MEDS: AMIODARONE 200 MG TAB GTB SCH ×3 (06:12→20:47)
[2018-07-08] MEDS: SODIUM BICARBONATE (IV ADD) 150 MEQ in DEXTROSE 5% 1,000 ML IV SCH (09:44)
[2018-07-08] MEDS: MULTIVITAMINS 30 ML CUP GTB SCH (09:44)
[2018-07-08] MEDS: morphine LIQ (10 MG/5 ML) CUP PEG PRN (09:45)
[2018-07-08] MEDS: SPIRONOLACTONE 25 MG TAB GTB SCH (09:46)
[2018-07-08] MEDS: ZINC SULFATE 220 MG CAP GTB SCH (09:46)
[2018-07-08] MEDS: FAMOTIDINE 20 MG TAB PEG SCH (09:46)
[2018-07-08] MEDS: BALSAM PERU/CASTOR OIL 60 GM TUBE TOP SCH ×2 (09:47→20:50)
[2018-07-08] MEDS: NYSTATIN 30 GM POWDER BTL TOP SCH ×2 (09:47→20:50)
[2018-07-08] MEDS: ASCORBIC ACID 500 MG TAB GTB SCH (09:47)
[2018-07-08] MEDS: COLLAGENASE 5 GM (UD JAR) TOP SCH (09:48)
--- NOTE | 2018-07-08 10:06 | PN ---
DATE: 07/08/2018 SUBJECTIVE: The patient is stable. No events overnight. No fevers, chills, nausea or vomiting. OBJECTIVE: VITAL SIGNS: Blood pressure is 107/58, respirations 20, pulse 72, temperature 98.3. HEENT: Head is normocephalic. NECK: Supple. HEART: Regular rate. LUNGS: Show diminished breath sounds at the base. ABDOMEN: Soft, nontender to palpation without rebound or guarding. EXTREMITIES: Negative for clubbing, cyanosis. Trace edema. DERMATOLOGIC: No rashes. MUSCULOSKELETAL: No joint effusion. NEUROLOGIC: No change in exam. MEDICATIONS: Reviewed. LABORATORY DATA: Reviewed. ASSESSMENT AND PLAN: 1. Nonoliguric acute kidney injury on top of chronic kidney disease stage III with previous baseline creatinine around 2.0 mg/dL. Etiology of acute kidney injury is secondary to acute tubular necrosis . The patient is status post hemodialysis as renal function improved. However, the patient develope d progressive azotemia over the past several days likely from diuretic therapy. The patient's diuret ics were held. The patient is currently being given a fluid challenge. We will monitor renal functi on closely. 2. Volume overload, nearly improved. The patient's diuretics are on hold due to progressive azotemi a. Monitor closely on IV fluids. 3. Metabolic acidosis. The patient is currently on bicarbonate drip. We will continue. We will st art the patient on Bicitra. 4. Hypernatremia, resolved. 5. Hypomagnesemia. Continue to monitor. 6. Anemia. Monitor hemoglobin and hematocrit levels. 7. Mineral bone disorder. Monitor calcium and phosphorus levels. 8. Ventilator-dependent respiratory failure. Vent settings have been reviewed. Continue to monitor . 9. Sepsis status post shock. The patient is completing antibiotic course. 10. Clostridium difficile. The patient has completed a course of vancomycin. 11. Lower extremity wounds. Continue wound care. 12. Dysphagia. Continue tube feeding. 13. Encephalopathy. Continue to monitor. Dictated By: JEANA BANSAL DO NR/NTS Conf#: [id number] DID#: [id number] CC: QUINTEN UMAÑA MD; ROLAND GIRON MD;*EndCC*
--- NOTE | 2018-07-08 12:13 | CONS ---
Assessment/Plan Assessment/Plan Hospital Course (Demo Recall) Septic as well as hemorrhagic shock-resolved Acute respiratory failure status post intubation and repeat tracheostomy Acute blood loss anemia History of respiratory failure status post decannulation Preserved ejection fraction echocardiogram 05/10/2018 Paroxysmal atrial fibrillation Acute kidney injury History of hypertension-now labile BP -Patient with paroxysmal atrial fibrillation, currently in sinus rhythm -Continue beta-tin and amiodarone and titrate as tolerated -Vent management as per pulmonary -Fluid management and electrolytes as per renal -Antibiotics as per infectious disease -No anticoagulation given recurrent anemia requiring blood transfusions Consultation Date/Type/Reason Admit Date/Time May 06, 2018 at 17:38 Initial Consult Date 05/10/18 Type of Consult Cardiology Requesting Provider: ROLAND GIRON MD Date/Time of Note DATE: 07/08/18 TIME: 12:12 24 HR Interval Summary Free Text/Dictation Patient seen and examined Exam/Review of Systems Vital Signs Vitals Vital Signs Date Temp Pulse Resp B/P (MAP) Pulse Ox O2 O2 Flow FiO2 Time Delivery Rate 07/08/18 98.8 84 19 121/54 95 12:01 (76) 07/08/18 30 11:14 07/04/18 Mechanical 16:22 Ventilator Trach Collar Intake and Output 07/07/18 07/07/18 07/08/18 1515:00 23:00 07:00 IntakeIntake Total 380 ml 630 ml OutputOutput Total 1500 ml 500 ml BalanceBalance -1120 ml 130 ml Exam Exam Sleeping, no apparent distress Head: normocephalic Respiratory: other (Coarse breath sounds bilaterally, no wheezing) Cardiovascular: regular rate and rhythm (S1-S2 heard) Gastrointestinal: soft, non-tender, bowel sounds Extremities: edema Labs Result Diagram: 07/08/18 0608 07/08/18 0608 Results 24hrs Laboratory Tests Test 07/08/18 06:08 White Blood Count 10.2 # Red Blood Count 2.26 L Hemoglobin 7.5 L Hematocrit 24.9 L Mean Corpuscular Volume 110.2 H Mean Corpuscular Hemoglobin 33.2 H Mean Corpuscular Hemoglobin Concent 30.1 L Red Cell Distribution Width 22.1 H Platelet Count 250 Mean Platelet Volume 10.2 Immature Granulocytes % 1.000 H Neutrophils % 84.3 H Lymphocytes % 6.0 L Monocytes % 6.2 Eosinophils % 2.2 Basophils % 0.3 Nucleated Red Blood Cells % 0.4 H Immature Granulocytes # 0.100 H Neutrophils # 8.6 H Lymphocytes # 0.6 L Monocytes # 0.6 Eosinophils # 0.2 Basophils # 0.0 Nucleated Red Blood Cells # 0.0 Sodium Level 138 Potassium Level 4.9 Chloride Level 113 H Carbon Dioxide Level 13 L Anion Gap 12 Blood Urea Nitrogen 104 H Creatinine 1.96 H Est Glomerular Filtrat Rate mL/min Glucose Level 109 Calcium Level 9.7 Phosphorus Level 3.7 Magnesium Level 1.8 Medications Medications Current Medications IV Flush (NS 10 ml) 10 ml PRN IV ; Start 05/06/18 at 20:30 Ascorbic Acid (Vitamin C) 500 mg DAILY GTB Last administered on 07/08/18 09:47; Admin Dose 500 MG; Start 05/07/18 at 09:00 Albuterol/ Ipratropium (Duoneb) 3 ml Q2H RESP THERAPY PRN HHN SHORTNESS OF BREATH Last administered on 06/30/18 19:30; Admin Dose 3 ML; Start 05/06/18 at 23:30 Zinc Sulfate (Zinc Sulfate) 220 mg DAILY GTB Last administered on 07/08/18 09:46; Admin Dose 220 MG; Start 05/07/18 at 09:00 Ondansetron HCl (Zofran Tab) 4 mg Q6H PRN GTB NAUSEA AND/OR VOMITING Last administered on 05/31/18 16:47; Admin Dose 4 MG; Start 05/07/18 at 00:15 Multivitamins (Multivitamin) 30 ml DAILY GTB Last administered on 07/08/18 09:44; Admin Dose 30 ML; Start 05/07/18 at 09:00 Miscellaneous Information (Pending Santyl Order For Wound Care) This patient goldman... PRN PRN XX WOUND CARE; Start 05/09/18 at 17:00 Spironolactone (Aldactone) 50 mg DAILY GTB Last administered on 07/08/18 09:46; Admin Dose 50 MG; Start 05/21/18 at 09:00 Famotidine (Pepcid) 20 mg DAILY PEG Last administered on 07/08/18 09:46; Admin Dose 20 MG; Start 05/23/18 at 09:00 Morphine Sulfate (morphine) 6 mg Q4H PRN PEG SEVERE PAIN LEVEL 7-10 Last administered on 07/08/18 09:45; Admin Dose 6 MG; Start 05/22/18 at 17:00 Acetaminophen (Tylenol Tab) 650 mg Q4H PRN PO MILD PAIN(1-3)OR ELEVATED TEMP Last administered on 07/06/18 21:25; Admin Dose 650 MG; Start 05/31/18 at 13:00 Metoclopramide HCl (Reglan) 5 mg Q6 IV Last administered on 07/08/18 06:09; Admin Dose 5 MG; Start 05/31/18 at 13:00 Collagenase (Santyl) 1 applic DAILY TOP Last administered on 07/08/18 09:48; Admin Dose 1 APPLIC; Start 06/01/18 at 09:00 Clonidine (Catapres) 0.1 mg Q6H PRN PO ELEVATED BLOOD PRESSURE Last admini stered on 07/04/18 18:04; Admin Dose 0.1 MG; Start 06/03/18 at 03:30 Bumetanide (Bumex) 1 mg BID DIURETICS GTB Last administered on 07/07/18 05:25; Admin Dose 1 MG; Start 06/11/18 at 18:00; Status Hold Collagenase (Santyl) 1 applic PRN PRN TOP WHEN SOILED; Start 06/13/18 at 01:00 Nystatin (Nystatin Powder) 1 applic BID TOP Last administered on 07/08/18 09:47; Admin Dose 1 APPLIC; Start 06/13/18 at 14:00 Epoetin Zen-epbx (RETACRIT(esrd)) 20,000 unit Tu@1700 SC Last administered on 07/07/18 17:03; Admin Dose 20,000 UNIT; Start 06/16/18 at 18:30 Miscellaneous Information 1 ea NOTE XX ; Start 06/26/18 at 08:00 Dicyclomine HCl (Bentyl) 20 mg Q8 PO Last administered on 07/08/18 06:09; Admin Dose 20 MG; Start 06/27/18 at 22:00 Cholestyramine Resin (Questran Light) 4 gm 0600,1200,1800,2300 GTB Last administered on 07/08/18 05:08; Admin Dose 4 GM; Start 06/27/18 at 18:00 Lorazepam (Ativan) 0.5 mg Q4 PRN IV ANXIETY Last administered on 07/03/18at 17:32; Admin Dose 0.5 MG; Start 07/01/18 at 14:00 Amiodarone HCl (Cordarone) 200 mg Q8 GTB Last administered on 07/08/18at 06:12; Admin Dose 200 MG; Start 07/05/18 at 22:00 Metoprolol Tartrate (Lopressor) 50 mg Q8 GTB Last administered on 07/08/18at 06:11; Admin Dose 50 MG; Start 07/05/18 at 22:00 Sodium Bicarbonate 150 meq/Dextrose 1,150 ml @ 50 mls/hr Q23H IV Last administered on 07/08/18at 09:44; Admin Dose 50 MLS/HR; Start 07/07/18 at 11:00 Citric Acid/ Sodium Citrate (Bicitra) 30 ml Q8 PO ; Start 07/08/18 at 09:30 Evangelista Scanlon DO July 08, 2018 12:13
[2018-07-08] MEDS: CITRIC ACID/NA CITRATE 30 ML CUP PO SCH ×3 (12:28→20:47)
--- NOTE | 2018-07-08 15:37 | CONS ---
Assessment/Plan Assessment/Plan Hospital Course (Demo Recall) # sepsis, leukocytosis, SIRS, pulmonary, cardiac - recurrent leukocytosis due to recurrent UTI, improved - s/p septic shock due to pneumonia and C diff colitis - acute on chronic hypoxic respiratory failure, persistent - s/p reintubation 05/12/2018 - s/p re-do trach on 05/29/2018 - recurrent colonization of the anterior neck wound with ESBL+kleb, MRSA, GBS, corynebacteria on 05/06/2018, s/p meropenem - h/o pneumonia vs. colonization of the airway by pseudomonas and ESBL+klebsiella - h/o possible, recurrent HCAP due to pseudomonas and ESBL+klebsiella - h/o recurrent HCAP due to MRSA and Enterobacter (culture of tracheal aspirate on 07/16/2017 that was collected at [facility]) . Pt took vancomycin and ceftazidime - h/o decannulation prior to admission - h/o tracheostomy on 06/11/2017 - h/o SIRS from UGIB in 2018 - h/o thoracentesis on 07/18/2017, transudative (protein <2, LDH 279) - h/o bleeding from the trach site in 2018 - h/o septic shock due to pneumonia, ARDS, bacteremia, fungemia in 2018 - h/o ARDS in 2018 - h/o smoking - COPD - h/o ILD per medical record - h/o PAF, improved # GI - possible ileus or enterocolitis on CT abd/pel 06/15/2018 - C diff colitis, diagnosed on 05/11/2018. Pt's on pGT vancomycin induction followed by taper (05/11/2018-); Pt previously took IV metronidazole (05/11/2018- 05/29/2018; restart 05/30/2018-06/05/18) too - h/o intermittent diarrhea, Pt had multiple negative C. diff tests at [facility] at OSH in the past; none was positive until 05/11/2018 - dysphagia - h/o PEG placement 06/13/2018 - protein calorie malnutrition - h/o coffee ground emesis/UGIB on 12/23/2017 due to deep ulceration of distal esophagus and gastritis on EGD 12/26/2017. No e/o H. pylori - h/o possible appendicitis on CT on 11/22/2017, Pt took ertapenem (11/24/2017-12/01/2017) - h/o extensive adhesions lower abdominal and pelvis between small bowel to each other and to colon and to abdominal wall, anterior pelvic wall chronic abscess secondary to probably an old perforated diverticulitis, torsion of small bowel around these dense adhesion causing multiple obstructive points - h/o laparoscopic exploration and extensive lysis of adhesions and drainage of anterior pelvic wall abscess 09/16/2017. Cultures were negative, no e/o malignancy. 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 S/p renally dosed amikacin for klebsiella in her urine culture (06/17-06/22/2018) - UTI due to pseudomonas and ESBL+klebsiella on 06/09/2018, Pt took one dose of fosfomycin on 06/10/2018 and cipro 06/12-06/15/2018 - anasarca - started on HD on 05/15/2018, via Juan in R groin - recurrent NATHAN on CKD - 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 Her strain of CRE was sensitive to colistin, Avycaz, and Vabomere but resistant to Zerbaxa (reported on 05/19/2018) - metabolic acidosis - adrenal insufficiency - h/o vaginal bleed in 2018 - h/o colonization of urinary tract by ESBL+klebsiella, VRE - h/o recurrent, symptomatic UTI due to carbapenem-resistant kleb (MDR strain) per urine culture 10/04/17, 10/09/17, 10/21/2017, P took colistin (10/09/2017- 10/15/2017), fosfomycin for carbapenemase-producing klebsiella and VRE on 10/25/2017 and 10/28/2017 - h/o funguria - h/o urinary retention # fungemia, bacteremia 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; Pt declined surgery for MVR per outside medical records; TTE 07/01/17 did not mention any thrombus; s/p voriconazole (05/25/2017-08/01/2017) - h/o bacteremia due to MSSA and proteus s/p ceftriaxone; repeat blood cultures were negative on 06/14/2017 # musculoskeletal and dermatological - L hand pain - dry skin - chronic wound of LLE - h/o infection of wound of LLE - h/o debridement of wound of LLE on 08/06/2017 - h/o recurrent herpes labialis, Pt took acyclovir, valacyclovir - h/o Osler's nodes (eschar) of R toes with erythematous skin; desquamation of the skin and open lacerations on R plantar foot. improved. Probable manifestation of endocarditis. Pt declined MRI on 08/06/2017 - h/o infection of R toes due to pseudomonas. coagulase negative Staph likely a colonizer - h/o intertrigo of the groin, resolved with nystatin powder - h/o scabies, locally crusted lesion over L scapula, s/p permethrin cream and pGT ivermectin on 08/11/2017, 08/12/2017, 08/19/2017. Repeat skin scraping on 08/21/2017 was negative for scabies # psych, neuro - decreased hearing b/l - s/p acute toxic metabolic encephalopathy - h/o critical illness polyneuropathy - anxiety/depression, bipolar d/o, seen by Psychiatry in the past - chronic pain syndrome - h/o medical non-compliance: she would refuse her medications, treatment and straight catheterization in 2018 # hematological, vascular - chronic anemia requiring blood transfusion intermittently - macrocytic anemia - aneurysmal dilatation of the distal aorta visualized on CT 06/15/2018 - PVD Recommendations: - Monitor closely off systemic antibiotics. S/p renally dosed amikacin for klebsiella in her urine culture (06/17-06/22/2018) - completed po vanco taper Consultation Date/Type/Reason Admit Date/Time May 06, 2018 at 17:38 Initial Consult Date 05/10/18 Type of Consult ID Requesting Provider: ROLAND GIRON MD Date/Time of Note DATE: 07/08/18 TIME: 15:37 Exam/Review of Systems Exam Vitals Vital Signs Date Temp Pulse Resp B/P (MAP) Pulse Ox O2 O2 Flow FiO2 Time Delivery Rate 07/08/18 98.0 75 19 118/49 95 14:50 (72) 07/08/18 30 13:00 07/04/18 Mechanical 16:22 Ventilator Trach Collar Intake and Output 07/07/18 07/07/18 07/08/18 1515:00 23:00 07:00 IntakeIntake Total 380 ml 630 ml OutputOutput Total 1500 ml 500 ml BalanceBalance -1120 ml 130 ml Results Result Diagram: 07/08/18 0608 07/08/18 0608 Results 24hrs Laboratory Tests Test 07/08/18 06:08 White Blood Count 10.2 # Red Blood Count 2.26 L Hemoglobin 7.5 L Hematocrit 24.9 L Mean Corpuscular Volume 110.2 H Mean Corpuscular Hemoglobin 33.2 H Mean Corpuscular Hemoglobin Concent 30.1 L Red Cell Distribution Width 22.1 H Platelet Count 250 Mean Platelet Volume 10.2 Immature Granulocytes % 1.000 H Neutrophils % 84.3 H Lymphocytes % 6.0 L Monocytes % 6.2 Eosinophils % 2.2 Basophils % 0.3 Nucleated Red Blood Cells % 0.4 H Immature Granulocytes # 0.100 H Neutrophils # 8.6 H Lymphocytes # 0.6 L Monocytes # 0.6 Eosinophils # 0.2 Basophils # 0.0 Nucleated Red Blood Cells # 0.0 Sodium Level 138 Potassium Level 4.9 Chloride Level 113 H Carbon Dioxide Level 13 L Anion Gap 12 Blood Urea Nitrogen 104 H Creatinine 1.96 H Est Glomerular Filtrat Rate mL/min Glucose Level 109 Calcium Level 9.7 Phosphorus Level 3.7 Magnesium Level 1.8 Medications Medication Current Medications IV Flush (NS 10 ml) 10 ml PRN IV ; Start 05/06/18 at 20:30 Zinc Sulfate (Zinc Sulfate) 220 mg DAILY GTB Last administered on 07/08/18 09:46; Admin Dose 220 MG; Start 05/07/18 at 09:00 Ondansetron HCl (Zofran Tab) 4 mg Q6H PRN GTB NAUSEA AND/OR VOMITING Last administered on 05/31/18 16:47; Admin Dose 4 MG; Start 05/07/18 at 00:15 Multivitamins (Multivitamin) 30 ml DAILY GTB Last administered on 07/08/18 09:44; Admin Dose 30 ML; Start 05/07/18 at 09:00 Miscellaneous Information (Pending Santyl Order For Wound Care) This patient goldman... PRN PRN XX WOUND CARE; Start 05/09/18 at 17:00 Spironolactone (Aldactone) 50 mg DAILY GTB Last administered on 07/08/18 09:46; Admin Dose 50 MG; Start 05/21/18 at 09:00 Famotidine (Pepcid) 20 mg DAILY PEG Last administered on 07/08/18 09:46; Admin Dose 20 MG; Start 05/23/18 at 09:00 Morphine Sulfate (morphine) 6 mg Q4H PRN PEG SEVERE PAIN LEVEL 7-10 Last administered on 07/08/18 09:45; Admin Dose 6 MG; Start 05/22/18 at 17:00 Acetaminophen (Tylenol Tab) 650 mg Q4H PRN PO MILD PAIN(1-3)OR ELEVATED TEMP Last administered on 07/06/18 21:25; Admin Dose 650 MG; Start 05/31/18 at 13:00 Metoclopramide HCl (Reglan) 5 mg Q6 IV Last administered on 07/08/18 12:28; Admin Dose 5 MG; Start 05/31/18 at 13:00 Collagenase (Santyl) 1 applic DAILY TOP Last administered on 07/08/18 09:48; Admin Dose 1 APPLIC; Start 06/01/18 at 09:00 Clonidine (Catapres) 0.1 mg Q6H PRN PO ELEVATED BLOOD PRESSURE Last administered on 07/04/18 18:04; Admin Dose 0.1 MG; Start 06/03/18 at 03:30 Bumetanide (Bumex) 1 mg BID DIURETICS GTB Last administered on 07/07/18 05:25; Admin Dose 1 MG; Start 06/11/18 at 18:00; Status Hold Collagenase (Santyl) 1 applic PRN PRN TOP WHEN SOILED; Start 06/13/18 at 01:00 Nystatin (Nystatin Powder) 1 applic BID TOP Last administered on 07/08/18 09:47; Admin Dose 1 APPLIC; Start 06/13/18 at 14:00 Epoetin Zen-epbx (RETACRIT(esrd)) 20,000 unit Tu@1700 SC Last administered on 07/07/18 17:03; Admin Dose 20,000 UNIT; Start 06/16/18 at 18:30 Miscellaneous Information 1 ea NOTE XX ; Start 06/26/18 at 08:00 Dicyclomine HCl (Bentyl) 20 mg Q8 PO Last administered on 07/08/18 14:04; Admin Dose 20 MG; Start 06/27/18 at 22:00 Cholestyramine Resin (Questran Light) 4 gm 0600,1200,1800,2300 GTB Last administered on 07/08/18 12:28; Admin Dose 4 GM; Start 06/27/18 at 18:00 Lorazepam (Ativan) 0.5 mg Q4 PRN IV ANXIETY Last administered on 07/03/18 17:32; Admin Dose 0.5 MG; Start 07/01/18 at 14:00 Amiodarone HCl (Cordarone) 200 mg Q8 GTB Last administered on 07/08/18 14:03; Admin Dose 200 MG; Start 07/05/18 at 22:00 Metoprolol Tartrate (Lopressor) 50 mg Q8 GTB Last administered on 07/08/18 14:03; Admin Dose 50 MG; Start 07/05/18 at 22:00 Sodium Bicarbonate 150 meq/Dextrose 1,150 ml @ 50 mls/hr Q23H IV Last administered on 07/08/18 09:44; Admin Dose 50 MLS/HR; Start 07/07/18 at 11:00 Citric Acid/ Sodium Citrate (Bicitra) 30 ml Q8 PO Last administered on 07/08/18 14:02; Admin Dose 30 ML; Start 07/08/18 at 09:30 MANN VALDEZ MD July 08, 2018 15:37
--- NOTE | 2018-07-08 17:59 | CONS ---
Assessment/Plan Assessment/Plan Assessment/Plan (Daily) Hospital Course (Demo Recall) 73 yo female 1. ABD pain 2. Renal failure.- on HD 3. Vent dependent resp failure 4. Chronic obstructive pulmonary disease. 5. Bipolar. 6. Paroxysmal atrial fibrillation. 7. Anemia of chronic disease. 8. CHF 9. Diarrhea 11. Diarrhea -s/p c diff colitis -taper off of vanco -resolved 12. H/O deep esophageal ulcer 13. Dysphagia with g tube 14. Anemia of chronic disease 15. UTI with positive cx PLAN: Continue with reglan and pepcid and bentyl Monitor tube feeds residuals q 6 hour Consultation Date/Type/Reason Admit Date/Time May 06, 2018 at 17:38 Initial Consult Date 05/10/18 Requesting Provider: ROLAND GIRON MD Date/Time of Note DATE: 07/08/18 TIME: 17:59 24 HR Interval Summary Constitutional: no complaints Exam/Review of Systems Exam Vitals Vital Signs Date Temp Pulse Resp B/P (MAP) Pulse Ox O2 O2 Flow FiO2 Time Delivery Rate 07/08/18 71 24 100 30 17:15 07/08/18 98.0 118/49 14:50 (72) 07/04/18 Mechanical 16:22 Ventilator Trach Collar Intake and Output 07/07/18 07/07/18 07/08/18 1515:00 23:00 07:00 IntakeIntake Total 380 ml 630 ml OutputOutput Total 1500 ml 500 ml BalanceBalance -1120 ml 130 ml Constitutional: alert, oriented ENMT: intubated Respiratory: diminished breath sounds Cardiovascular: regular rate and rhythm, nl pulses Gastrointestinal: soft, nl liver, spleen, non-tender Musculoskeletal: nl extremities to inspection, nl gait and stance Extremities: normal pulses Neurological: [employer] II-XII intact, nl mental status, nl speech, nl strength Results Result Diagram: 07/08/18 0608 07/08/18 0608 Results 24hrs Laboratory Tests Test 07/08/18 06:08 White Blood Count 10.2 # Red Blood Count 2.26 L Hemoglobin 7.5 L Hematocrit 24.9 L Mean Corpuscular Volume 110.2 H Mean Corpuscular Hemoglobin 33.2 H Mean Corpuscular Hemoglobin Concent 30.1 L Red Cell Distribution Width 22.1 H Platelet Count 250 Mean Platelet Volume 10.2 Immature Granulocytes % 1.000 H Neutrophils % 84.3 H Lymphocytes % 6.0 L Monocytes % 6.2 Eosinophils % 2.2 Basophils % 0.3 Nucleated Red Blood Cells % 0.4 H Immature Granulocytes # 0.100 H Neutrophils # 8.6 H Lymphocytes # 0.6 L Monocytes # 0.6 Eosinophils # 0.2 Basophils # 0.0 Nucleated Red Blood Cells # 0.0 Sodium Level 138 Potassium Level 4.9 Chloride Level 113 H Carbon Dioxide Level 13 L Anion Gap 12 Blood Urea Nitrogen 104 H Creatinine 1.96 H Est Glomerular Filtrat Rate mL/min Glucose Level 109 Calcium Level 9.7 Phosphorus Level 3.7 Magnesium Level 1.8 Medications Medication Current Medications IV Flush (NS 10 ml) 10 ml PRN IV ; Start 05/06/18 at 20:30 Zinc Sulfate (Zinc Sulfate) 220 mg DAILY GTB Last administered on 07/08/18 09:46; Admin Dose 220 MG; Start 05/07/18 at 09:00 Ondansetron HCl (Zofran Tab) 4 mg Q6H PRN GTB NAUSEA AND/OR VOMITING Last administered on 05/31/18 16:47; Admin Dose 4 MG; Start 05/07/18 at 00:15 Multivitamins (Multivitamin) 30 ml DAILY GTB Last administered on 07/08/18 09:44; Admin Dose 30 ML; Start 05/07/18 at 09:00 Miscellaneous Information (Pending Santyl Order For Wound Care) This patient goldman... PRN PRN XX WOUND CARE; Start 05/09/18 at 17:00 Spironolactone (Aldactone) 50 mg DAILY GTB Last administered on 07/08/18 09:46; Admin Dose 50 MG; Start 05/21/18 at 09:00 Famotidine (Pepcid) 20 mg DAILY PEG Last administered on 07/08/18 09:46; Admin Dose 20 MG; Start 05/23/18 at 09:00 Morphine Sulfate (morphine) 6 mg Q4H PRN PEG SEVERE PAIN LEVEL 7-10 Last administered on 07/08/18 09:45; Admin Dose 6 MG; Start 05/22/18 at 17:00 Acetaminophen (Tylenol Tab) 650 mg Q4H PRN PO MILD PAIN(1-3)OR ELEVATED TEMP Last administered on 07/06/18 21:25; Admin Dose 650 MG; Start 05/31/18 at 13:00 Metoclopramide HCl (Reglan) 5 mg Q6 IV Last administered on 07/08/18 17:43; Ad min Dose 5 MG; Start 05/31/18 at 13:00 Collagenase (Santyl) 1 applic DAILY TOP Last administered on 07/08/18 09:48; Admin Dose 1 APPLIC; Start 06/01/18 at 09:00 Clonidine (Catapres) 0.1 mg Q6H PRN PO ELEVATED BLOOD PRESSURE Last administered on 07/04/18 18:04; Admin Dose 0.1 MG; Start 06/03/18 at 03:30 Bumetanide (Bumex) 1 mg BID DIURETICS GTB Last administered on 07/07/18 05:25; Admin Dose 1 MG; Start 06/11/18 at 18:00; Status Hold Collagenase (Santyl) 1 applic PRN PRN TOP WHEN SOILED; Start 06/13/18 at 01:00 Nystatin (Nystatin Powder) 1 applic BID TOP Last administered on 07/08/18 09:47; Admin Dose 1 APPLIC; Start 06/13/18 at 14:00 Epoetin Zen-epbx (RETACRIT(esrd)) 20,000 unit Tu@1700 SC Last administered on 07/07/18 17:03; Admin Dose 20,000 UNIT; Start 06/16/18 at 18:30 Miscellaneous Information 1 ea NOTE XX ; Start 06/26/18 at 08:00 Dicyclomine HCl (Bentyl) 20 mg Q8 PO Last administered on 07/08/18 14:04; Admin Dose 20 MG; Start 06/27/18 at 22:00 Cholestyramine Resin (Questran Light) 4 gm 0600,1200,1800,2300 GTB Last administered on 07/08/18 17:43; Admin Dose 4 GM; Start 06/27/18 at 18:00 Lorazepam (Ativan) 0.5 mg Q4 PRN IV ANXIETY Last administered on 07/03/18 17:32; Admin Dose 0.5 MG; Start 07/01/18 at 14:00 Amiodarone HCl (Cordarone) 200 mg Q8 GTB Last administered on 07/08/18 14:03; Admin Dose 200 MG; Start 07/05/18 at 22:00 Metoprolol Tartrate (Lopressor) 50 mg Q8 GTB Last administered on 07/08/18 14:03; Admin Dose 50 MG; Start 07/05/18 at 22:00 Sodium Bicarbonate 150 meq/Dextrose 1,150 ml @ 50 mls/hr Q23H IV Last administered on 07/08/18 09:44; Admin Dose 50 MLS/HR; Start 07/07/18 at 11:00 Citric Acid/ Sodium Citrate (Bicitra) 30 ml Q8 PO Last administered on 07/08/18 14:02; Admin Dose 30 ML; Start 07/08/18 at 09:30 QUINTEN UMAÑA MD July 08, 2018 17:59
[2018-07-09] VITALS (22 sets, daily range): BP systolic 97–150; BP diastolic 44–66; PULSE 60–85; RESP 19–32
[2018-07-09] MEDS: METOCLOPRAMIDE 10 MG INJ IV SCH ×5 (00:49→23:31)
[2018-07-09] MEDS: METOPROLOL 50 MG TAB GTB SCH ×3 (05:35→21:48)
[2018-07-09] MEDS: AMIODARONE 200 MG TAB GTB SCH ×3 (05:35→21:45)
[2018-07-09] MEDS: CITRIC ACID/NA CITRATE 30 ML CUP PO SCH ×3 (05:35→21:53)
[2018-07-09] MEDS: DICYCLOMINE 10 MG CAP PO SCH ×3 (05:36→21:50)
[2018-07-09] MEDS: CHOLESTYRAMINE (LIGHT) 4 GM PACKET GTB SCH ×4 (05:36→23:31)
[2018-07-09] MEDS ORDERED: SOD CHLORIDE 0.9% 250 ML IV* ONE (08:36)
[2018-07-09] MEDS: SPIRONOLACTONE 25 MG TAB GTB SCH (08:50)
[2018-07-09] MEDS: FAMOTIDINE 20 MG TAB PEG SCH (08:50)
[2018-07-09] MEDS: ZINC SULFATE 220 MG CAP GTB SCH (08:50)
[2018-07-09] MEDS: COLLAGENASE 5 GM (UD JAR) TOP SCH (08:51)
[2018-07-09] MEDS: MULTIVITAMINS 30 ML CUP GTB SCH (08:51)
[2018-07-09] MEDS: NYSTATIN 30 GM POWDER BTL TOP SCH ×2 (08:51→21:44)
[2018-07-09] MEDS: BALSAM PERU/CASTOR OIL 60 GM TUBE TOP SCH ×2 (08:51→21:44)
[2018-07-09] MEDS ORDERED: FUROSEMIDE 40 MG INJ IV SCH (09:00)
--- NOTE | 2018-07-09 09:15 | PN ---
DATE: 07/09/2018 SUBJECTIVE: Overnight, the patient was stable on full ventilatory support. Urinary output has been adequate. OBJECTIVE: VITAL SIGNS: Blood pressure is 138/58, respirations 19, pulse 77, temperature 97.7. HEENT: Head is normocephalic. NECK: Supple. HEART: Regular rate. LUNGS: Show diminished breath sounds at the base. ABDOMEN: Soft, nontender to palpation without rebound or guarding. EXTREMITIES: Negative for clubbing, cyanosis. Trace edema. DERMATOLOGIC: No rashes. MUSCULOSKELETAL: No joint effusion. NEUROLOGIC: No change in exam. MEDICATIONS: The patient's medications have been reviewed. LABORATORY DATA: Reviewed. Repeat urinalysis shows ongoing pyuria, hematuria. Repeat urine electro lytes are pending. ASSESSMENT AND PLAN: 1. Nonoliguric acute kidney injury on top of chronic kidney disease with previous baseline creatinin e around 2.0 mg/dL. Etiology of acute kidney injury is secondary to acute tubular necrosis. The pat ient is status post hemodialysis. The patient's renal function has declined over the last several da ys. This may be due to ongoing cardiorenal syndrome, possible tubular injury. The patient's diureti c therapy has been held. The patient has been receiving IV fluids in last 48 hours. Plan is to cont inue another 24 hours of IV hydration. We will continue to monitor renal function closely. No immed iate need for renal replacement therapy at this time. 2. Metabolic acidosis with respiratory compensation. Continue bicarbonate drip. Continue Bicitra. 3. Hyponatremia, resolved. 4. Hypomagnesemia. Continue to monitor and replete as needed. 5. Mineral bone disorder, monitor calcium and phosphorus levels. 6. Volume overload. The patient appears euvolemic on exam. Continue gentle IV hydration, monitor v olume status closely. 7. Anemia. Continue to monitor hemoglobin and hematocrit levels. 8. Ventilator-dependent respiratory failure. Vent settings have been reviewed. Continue to monitor . 9. Sepsis status post shock. The patient has completed antibiotic course. 10. Clostridium difficile. The patient is completing course of vancomycin. 11. Dysphagia. Continue tube feeding. 12. Encephalopathy. Continue to monitor. 13. Lower extremity wounds. Continue wound care. Dictated By: JEANA FINE/TABATHA Conf#: [id number] DID#: [id number] CC: QUINTEN UMAÑA MD; ROLAND GIRON MD;*EndCC*
--- NOTE | 2018-07-09 13:04 | PN ---
Date/Time of Note Date/Time of Note DATE: 07/09/18 TIME: 12:59 Assessment/Plan VTE Prophylaxis Risk score (from [facility])>0 risk: 7 SCD applied (from [facility]): Yes Pharmacological prophylaxis: NA/contraindicated Pharm contraindication: anticoag not tolerated Lines/Catheters IV Catheter Type (from [facility]): PICC Line Central line still needed: Yes Urinary Cath still in place: Yes Reason Cath still needed: urinary retention Assessment/Plan Hospital Course Hemoglobin is 6.6, stool for OB is negative we will transfuse 1 unit of packed red blood cells patient is currently continued on Epogen. Increased white blood cells, no fever. Patient continues on vent. Pending placement to subacute. Assessment/Plan -MDR Klebsiella urinary tract infection, completed treatment with amikacin. Dr. Doyle is following in infectious consultation. -Atrial fibrillation was rapid ventricular response, patient remains in sinus rhythm continue metoprolol and amiodarone. Dr. Scanlon is following in cardiology consultation. -S/p septic shock secondary to urinary tract infection, anterior neck soft tissue infection, and C. difficile colitis. -C-diff colitis,resolved. -Acute respiratory failure requiring intubation and ventilatory support. Dr. Lambert is following in pulmonology consultation. -S/p tracheostomy on 05/29/18. -Acute kidney injury on chronic kidney disease. Started on HD this admission. Dr. Mckeon is following in nephrology consultation. -Anemia of chronic inflammation, stool for OB is negative, status post blood transfusion. Continue Epogen. -Metabolic acidosis, resolved. -Acute diastolic congestive heart failure. -Paroxysmal atrial fibrillation -COPD -Dysphagia with PEG. -G-tube mild malfunction, changed by GI Dr. Carolina is following in gastroenterology consultation. -Obesity Further recommendations based on clinical course. Plan of care discussed with Dr. Eisenberg. Result Diagram: 07/09/18 0638 07/09/18 0638 Results 24hrs Laboratory Tests Test 07/08/18 22:40 07/09/18 03:30 07/09/18 06:38 Stool Occult Blood NEGATIVE Urine Color YELLOW Urine Clarity SLIGHTLY CLOUDY A Urine pH 9.0 Urine Specific [place] 1.013 Urine Ketones NEGATIVE Urine Nitrite NEGATIVE Urine Bilirubin NEGATIVE Urine Urobilinogen NEGATIVE Urine Leukocyte Esterase 3+ H Urine Microscopic RBC 3 Urine Microscopic WBC 80 H Urine Bacteria FEW A Urine Yeast (Budding) FEW A Urine Hemoglobin NEGATIVE Urine Glucose NEGATIVE Urine Total Protein 1+ H White Blood Count 18.0 #H Red Blood Count 1.93 L Hemoglobin 6.6 *L Hematocrit 21.2 L Mean Corpuscular Volume 109.8 H Mean Corpuscular Hemoglobin 34.2 H Mean Corpuscular 31.1 L Hemoglobin Concent Red Cell Distribution Width 22.4 H Platelet Count 246 Mean Platelet Volume 10.2 Immature Granulocytes % 1.200 H Neutrophils % 91.8 H Segmented Neutrophils 93 H % (Manual) Band Neutrophils % (Manual) 1 Lymphocytes % 2.5 L Lymphocytes % (Manual) 1 L Monocytes % 3.2 Monocytes % (Manual) 5 Eosinophils % 1.1 Basophils % 0.2 Nucleated Red Blood Cells % 1 H Immature Granulocytes # 0.220 H Neutrophils # 16.5 H Neutrophils # (Manual) 16.8 H Band Neutrophils # 0.1 Lymphocytes (Manual) 0.1 L Lymphocytes # 0.5 L Monocytes # 0.6 Monocytes # (Manual) 0.9 Eosinophils # 0.2 Basophils # 0.0 Nucleated Red Blood Cells # 0.1 H Pathologist YES Review (Hematology) Platelet Estimate NORMAL Giant Platelets 1 H Polychromasia 3+ Anisocytosis 2+ Microcytosis 1+ Macrocytosis 1+ Sodium Level 140 Potassium Level 4.2 Chloride Level 110 Carbon Dioxide Level 16 L Anion Gap 14 H Blood Urea Nitrogen 109 H Creatinine 2.18 H Est Glomerular Filtrat Rate mL/min Glucose Level 131 Calcium Level 9.4 Phosphorus Level 3.0 Magnesium Level 1.8 Exam/Review of Systems Exam Vitals Vital Signs Date Temp Pulse Resp B/P (MAP) Pulse Ox O2 O2 Flow FiO2 Time Delivery Rate 07/09/18 85 25 97 30 11:19 07/09/18 97.7 138/58 07:46 (84) Intake and Output 07/08/18 07/08/18 07/09/18 1515:00 23:00 07:00 IntakeIntake Total 1380 ml 1080 ml OutputOutput Total 600 ml 650 ml BalanceBalance 780 ml 430 ml Exam Constitutional: alert, oriented Neck: other (Tracheostomy) Respiratory: diminished breath sounds Cardiovascular: regular rate and rhythm Gastrointestinal: soft, non-tender, other (G-tube) Extremities: normal pulses Neurological: nl mental status Results Results 24hrs Laboratory Tests Test 07/08/18 22:40 07/09/18 03:30 07/09/18 06:38 Stool Occult Blood NEGATIVE Urine Color YELLOW Urine Clarity SLIGHTLY CLOUDY A Urine pH 9.0 Urine Specific [place] 1.013 Urine Ketones NEGATIVE Urine Nitrite NEGATIVE Urine Bilirubin NEGATIVE Urine Urobilinogen NEGATIVE Urine Leukocyte Esterase 3+ H Urine Microscopic RBC 3 Urine Microscopic WBC 80 H Urine Bacteria FEW A Urine Yeast (Budding) FEW A Urine Hemoglobin NEGATIVE Urine Glucose NEGATIVE Urine Total Protein 1+ H White Blood Count 18.0 #H Red Blood Count 1.93 L Hemoglobin 6.6 *L Hematocrit 21.2 L Mean Corpuscular Volume 109.8 H Mean Corpuscular Hemoglobin 34.2 H Mean Corpuscular 31.1 L Hemoglobin Concent Red Cell Distribution Width 22.4 H Platelet Count 246 Mean Platelet Volume 10.2 Immature Granulocytes % 1.200 H Neutrophils % 91.8 H Segmented Neutrophils 93 H % (Manual) Band Neutrophils % (Manual) 1 Lymphocytes % 2.5 L Lymphocytes % (Manual) 1 L Monocytes % 3.2 Monocytes % (Manual) 5 Eosinophils % 1.1 Basophils % 0.2 Nucleated Red Blood Cells % 1 H Immature Granulocytes # 0.220 H Neutrophils # 16.5 H Neutrophils # (Manual) 16.8 H Band Neutrophils # 0.1 Lymphocytes (Manual) 0.1 L Lymphocytes # 0.5 L Monocytes # 0.6 Monocytes # (Manual) 0.9 Eosinophils # 0.2 Basophils # 0.0 Nucleated Red Blood Cells # 0.1 H Pathologist YES Review (Hematology) Platelet Estimate NORMAL Giant Platelets 1 H Polychromasia 3+ Anisocytosis 2+ Microcytosis 1+ Macrocytosis 1+ Sodium Level 140 Potassium Level 4.2 Chloride Level 110 Carbon Dioxide Level 16 L Anion Gap 14 H Blood Urea Nitrogen 109 H Creatinine 2.18 H Est Glomerular Filtrat Rate mL/min Glucose Level 131 Calcium Level 9.4 Phosphorus Level 3.0 Magnesium Level 1.8 Medications Medication Current Medications IV Flush (NS 10 ml) 10 ml PRN IV ; Start 05/06/18 at 20:30 Zinc Sulfate (Zinc Sulfate) 220 mg DAILY GTB Last administered on 07/09/18at 08:50; Admin Dose 220 MG; Start 05/07/18 at 09:00 Ondansetron HCl (Zofran Tab) 4 mg Q6H PRN GTB NAUSEA AND/OR VOMITING Last admin istered on 4/14/19at 16:47; Admin Dose 4 MG; Start 05/07/18 at 00:15 Multivitamins (Multivitamin) 30 ml DAILY GTB Last administered on 07/09/18 08:51; Admin Dose 30 ML; Start 05/07/18 at 09:00 Miscellaneous Information (Pending Santyl Order For Wound Care) This patient goldman... PRN PRN XX WOUND CARE; Start 05/09/18 at 17:00 Spironolactone (Aldactone) 50 mg DAILY GTB Last administered on 07/09/18 08:50; Admin Dose 50 MG; Start 05/21/18 at 09:00 Famotidine (Pepcid) 20 mg DAILY PEG Last administered on 07/09/18 08:50; Admin Dose 20 MG; Start 05/23/18 at 09:00 Morphine Sulfate (morphine) 6 mg Q4H PRN PEG SEVERE PAIN LEVEL 7-10 Last administered on 07/08/18 09:45; Admin Dose 6 MG; Start 05/22/18 at 17:00 Acetaminophen (Tylenol Tab) 650 mg Q4H PRN PO MILD PAIN(1-3)OR ELEVATED TEMP Last administered on 07/06/18 21:25; Admin Dose 650 MG; Start 05/31/18 at 13:00 Metoclopramide HCl (Reglan) 5 mg Q6 IV Last administered on 07/09/18 12:48; Admin Dose 5 MG; Start 05/31/18 at 13:00 Collagenase (Santyl) 1 applic DAILY TOP Last administered on 07/09/18 08:51; Admin Dose 1 APPLIC; Start 06/01/18 at 09:00 Clonidine (Catapres) 0.1 mg Q6H PRN PO ELEVATED BLOOD PRESSURE Last administered on 07/09/18 09:08; Admin Dose 0.1 MG; Start 06/03/18 at 03:30 Bumetanide (Bumex) 1 mg BID DIURETICS GTB Last administered on 07/07/18 05:25; Admin Dose 1 MG; Start 06/11/18 at 18:00; Status Hold Collagenase (Santyl) 1 applic PRN PRN TOP WHEN SOILED; Start 06/13/18 at 01:00 Nystatin (Nystatin Powder) 1 applic BID TOP Last administered on 5/23/19at 08:51; Admin Dose 1 APPLIC; Start 06/13/18 at 14:00 Epoetin Zen-epbx (RETACRIT(esrd)) 20,000 unit Tu@1700 SC Last administered on 07/07/18at 17:03; Admin Dose 20,000 UNIT; Start 06/16/18 at 18:30 Miscellaneous Information 1 ea NOTE XX ; Start 06/26/18 at 08:00 Dicyclomine HCl (Bentyl) 20 mg Q8 PO Last administered on 07/09/18at 05:36; Admin Dose 20 MG; Start 06/27/18 at 22:00 Cholestyramine Resin (Questran Light) 4 gm 0600,1200,1800,2300 GTB Last administered on 07/09/18at 12:48; Admin Dose 4 GM; Start 06/27/18 at 18:00 Lorazepam (Ativan) 0.5 mg Q4 PRN IV ANXIETY Last administered on 07/03/18at 17:32; Admin Dose 0.5 MG; Start 07/01/18 at 14:00 Amiodarone HCl (Cordarone) 200 mg Q8 GTB Last administered on 07/09/18 05:35; Admin Dose 200 MG; Start 07/05/18 at 22:00 Metoprolol Tartrate (Lopressor) 50 mg Q8 GTB Last administered on 07/09/18 05:35; Admin Dose 50 MG; Start 07/05/18 at 22:00 Furosemide (Lasix) 40 mg ONCE IV ; Start 07/09/18 at 09:00; Stop 07/10/18 at 08:59 Citric Acid/ Sodium Citrate (Bicitra) 60 ml Q8 PO ; Start 07/09/18 at 14:00 GRISELDA DENNIS July 09, 2018 13:04
--- NOTE | 2018-07-09 14:22 | CONS ---
Assessment/Plan Assessment/Plan Hospital Course (Demo Recall) # sepsis, leukocytosis, SIRS, pulmonary, cardiac - recurrent leukocytosis due to recurrent UTI, improved - s/p septic shock due to pneumonia and C diff colitis - acute on chronic hypoxic respiratory failure, persistent - s/p reintubation 05/12/2018 - s/p re-do trach on 05/29/2018 - recurrent colonization of the anterior neck wound with ESBL+kleb, MRSA, GBS, corynebacteria on 05/06/2018, s/p meropenem - h/o pneumonia vs. colonization of the airway by pseudomonas and ESBL+klebsiella - h/o possible, recurrent HCAP due to pseudomonas and ESBL+klebsiella - h/o recurrent HCAP due to MRSA and Enterobacter (culture of tracheal aspirate on 07/16/2017 that was collected at [facility]) . Pt took vancomycin and ceftazidime - h/o decannulation prior to admission - h/o tracheostomy on 06/11/2017 - h/o SIRS from UGIB in 2018 - h/o thoracentesis on 07/18/2017, transudative (protein <2, LDH 279) - h/o bleeding from the trach site in 2018 - h/o septic shock due to pneumonia, ARDS, bacteremia, fungemia in 2018 - h/o ARDS in 2018 - h/o smoking - COPD - h/o ILD per medical record - h/o PAF, improved # GI - possible ileus or enterocolitis on CT abd/pel 06/15/2018 - C diff colitis, diagnosed on 05/11/2018. Pt's on pGT vancomycin induction followed by taper (05/11/2018-); Pt previously took IV metronidazole (05/11/2018- 05/29/2018; restart 05/30/2018-06/05/18) too - h/o intermittent diarrhea, Pt had multiple negative C. diff tests at [facility] at OSH in the past; none was positive until 05/11/2018 - dysphagia - h/o PEG placement 06/13/2018 - protein calorie malnutrition - h/o coffee ground emesis/UGIB on 12/23/2017 due to deep ulceration of distal esophagus and gastritis on EGD 12/26/2017. No e/o H. pylori - h/o possible appendicitis on CT on 11/22/2017, Pt took ertapenem (11/24/2017-12/01/2017) - h/o extensive adhesions lower abdominal and pelvis between small bowel to each other and to colon and to abdominal wall, anterior pelvic wall chronic abscess secondary to probably an old perforated diverticulitis, torsion of small bowel around these dense adhesion causing multiple obstructive points - h/o laparoscopic exploration and extensive lysis of adhesions and drainage of anterior pelvic wall abscess 09/16/2017. Cultures were negative, no e/o malignancy. 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 S/p renally dosed amikacin for klebsiella in her urine culture (06/17-06/22/2018) - UTI due to pseudomonas and ESBL+klebsiella on 06/09/2018, Pt took one dose of fosfomycin on 06/10/2018 and cipro 06/12-06/15/2018 - anasarca - started on HD on 05/15/2018, via Juan in R groin - recurrent NATHAN on CKD - 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 Her strain of CRE was sensitive to colistin, Avycaz, and Vabomere but resistant to Zerbaxa (reported on 05/19/2018) - metabolic acidosis - adrenal insufficiency - h/o vaginal bleed in 2018 - h/o colonization of urinary tract by ESBL+klebsiella, VRE - h/o recurrent, symptomatic UTI due to carbapenem-resistant kleb (MDR strain) per urine culture 10/04/17, 10/09/17, 10/21/2017, P took colistin (10/09/2017- 10/15/2017), fosfomycin for carbapenemase-producing klebsiella and VRE on 10/25/2017 and 10/28/2017 - h/o funguria - h/o urinary retention # fungemia, bacteremia 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; Pt declined surgery for MVR per outside medical records; TTE 07/01/17 did not mention any thrombus; s/p voriconazole (05/25/2017-08/01/2017) - h/o bacteremia due to MSSA and proteus s/p ceftriaxone; repeat blood cultures were negative on 06/14/2017 # musculoskeletal and dermatological - L hand pain - dry skin - chronic wound of LLE - h/o infection of wound of LLE - h/o debridement of wound of LLE on 08/06/2017 - h/o recurrent herpes labialis, Pt took acyclovir, valacyclovir - h/o Osler's nodes (eschar) of R toes with erythematous skin; desquamation of the skin and open lacerations on R plantar foot. improved. Probable manifestation of endocarditis. Pt declined MRI on 08/06/2017 - h/o infection of R toes due to pseudomonas. coagulase negative Staph likely a colonizer - h/o intertrigo of the groin, resolved with nystatin powder - h/o scabies, locally crusted lesion over L scapula, s/p permethrin cream and pGT ivermectin on 08/11/2017, 08/12/2017, 08/19/2017. Repeat skin scraping on 08/21/2017 was negative for scabies # psych, neuro - decreased hearing b/l - s/p acute toxic metabolic encephalopathy - h/o critical illness polyneuropathy - anxiety/depression, bipolar d/o, seen by Psychiatry in the past - chronic pain syndrome - h/o medical non-compliance: she would refuse her medications, treatment and straight catheterization in 2018 # hematological, vascular - chronic anemia requiring blood transfusion intermittently - macrocytic anemia - aneurysmal dilatation of the distal aorta visualized on CT 06/15/2018 - PVD Recommendations: - Start Vanco pGT (07/09/18 - ) - Start Amikacin IV, and Flagyl IV - pharmacy to renally dos (07/09/18 ) - Start Linezolid IV (07/09/18 ) - Horne culture - ordered - Monitor CrCl closely - Trend WBC - S/p renally dosed amikacin for klebsiella in her urine culture (06/17-06/22/2018) - Completed po vanco taper Above plan d/w via [employer]. Consultation Date/Type/Reason Admit Date/Time May 06, 2018 at 17:38 Initial Consult Date 05/10/18 Requesting Provider: ROLAND GIRON MD Date/Time of Note DATE: 07/09/18 TIME: 14:22 24 HR Interval Summary Free Text/Dictation WBC elevated 10.2 -->18 today. Has remained afebrile, no diarrhea. S/p LEAD AUDITOR due to hypotension, currently getting PRBC transfusion for Hgb 6.6. Per d/w nurse Polk. Detailed Summary Additional Comments Unable to obtain, pt is nonverbal. Exam/Review of Systems Exam Vitals Vital Signs Date Temp Pulse Resp B/P (MAP) Pulse Ox O2 O2 Flow FiO2 Time Delivery Rate 07/09/18 85 14:05 07/09/18 24 98 30 13:04 07/09/18 97.7 138/58 07:46 (84) Intake and Output 07/08/18 07/08/18 07/09/18 1515:00 23:00 07:00 IntakeIntake Total 1380 ml 1080 ml OutputOutput Total 600 ml 650 ml BalanceBalance 780 ml 430 ml Exam Constitutional: alert, well developed, non-verbal, frail, obese Psych: nl mood/affect Head: normocephalic, atraumatic Eyes: nl conjunctiva, nl lids, nl sclera ENMT: nl external ears & nose, nl nasal mucosa & septum Neck: supple, non-tender, other (on mechanical vent via trach, trach midline, site is c/d/i) Respiratory: normal air movement, diminished breath sounds No wheezing Cardiovascular: regular rate and rhythm, nl pulses Gastrointestinal: soft, non-tender, bowel sounds (normoactive ), No distended, No firm Genitourinary - Female: other HD Musculoskeletal: muscle weakness, other (julia foot drop) Extremities: normal pulses, edema (BUE, BLE +1); No tenderness Neurological: Awake, alert, not following commands Results Result Diagram: 07/09/18 0638 07/09/18 0638 Results 24hrs Laboratory Tests Test 07/08/18 22:40 07/09/18 03:30 07/09/18 06:38 07/09/18 13:31 Stool Occult NEGATIVE Blood Urine Color YELLOW Urine Clarity SLIGHTLY CLOUDY A Urine pH 9.0 Urine Specific 1.013 [place] Urine Ketones NEGATIVE Urine Nitrite NEGATIVE Urine Bilirubin NEGATIVE Urine NEGATIVE Urobilinogen Urine Leukocyte 3+ H Esterase Urine Microscopic 3 RBC Urine Microscopic 80 H WBC Urine Bacteria FEW A Urine Yeast FEW A (Budding) Urine Hemoglobin NEGATIVE Urine Glucose NEGATIVE Urine Total 1+ H Protein White Blood Count 18.0 #H Red Blood Count 1.93 L Hemoglobin 6.6 *L Hematocrit 21.2 L Mean Corpuscular 109.8 H Volume Mean Corpuscular 34.2 H Hemoglobin Mean Corpuscular 31.1 L Hemoglobin Concen t Red Cell 22.4 H Distribution Width Platelet Count 246 Mean Platelet 10.2 Volume Immature 1.200 H Granulocytes % Neutrophils % 91.8 H Segmented 93 H Neutrophils % (Manual) Band Neutrophils 1 % (Manual) Lymphocytes % 2.5 L Lymphocytes % 1 L (Manual) Monocytes % 3.2 Monocytes % 5 (Manual) Eosinophils % 1.1 Basophils % 0.2 Nucleated Red 1 H Blood Cells % Immature 0.220 H Granulocytes # Neutrophils # 16.5 H Neutrophils # 16.8 H (Manual) Band Neutrophils 0.1 # Lymphocytes 0.1 L (Manual) Lymphocytes # 0.5 L Monocytes # 0.6 Monocytes # 0.9 (Manual) Eosinophils # 0.2 Basophils # 0.0 Nucleated Red 0.1 H Blood Cells # Pathologist YES Review (Hematolog y) Platelet Estimate NORMAL Giant Platelets 1 H Polychromasia 3+ Anisocytosis 2+ Microcytosis 1+ Macrocytosis 1+ Sodium Level 140 Potassium Level 4.2 Chloride Level 110 Carbon Dioxide 16 L Level Anion Gap 14 H Blood Urea 109 H Nitrogen Creatinine 2.18 H Est Glomerular Filtrat Rate mL/min Glucose Level 131 Calcium Level 9.4 Phosphorus Level 3.0 Magnesium Level 1.8 Bedside Glucose 135 Medications Medication Current Medications IV Flush (NS 10 ml) 10 ml PRN IV ; Start 05/06/18 at 20:30 Zinc Sulfate (Zinc Sulfate) 220 mg DAILY GTB Last administered on 07/09/18 08:50; Admin Dose 220 MG; Start 05/07/18 at 09:00 Ondansetron HCl (Zofran Tab) 4 mg Q6H PRN GTB NAUSEA AND/OR VOMITING Last administered on 05/31/18 16:47; Admin Dose 4 MG; Start 05/07/18 at 00:15 Multivitamins (Multivitamin) 30 ml DAILY GTB Last administered on 07/09/18 08:51; Admin Dose 30 ML; Start 05/07/18 at 09:00 Miscellaneous Information (Pending Santyl Order For Wound Care) This patient goldman... PRN PRN XX WOUND CARE; Start 05/09/18 at 17:00 Spironolactone (Aldactone) 50 mg DAILY GTB Last administered on 07/09/18 08:50; Admin Dose 50 MG; Start 05/21/18 at 09:00 Famotidine (Pepcid) 20 mg DAILY PEG Last administered on 07/09/18 08:50; Admin Dose 20 MG; Start 05/23/18 at 09:00 Morphine Sulfate (morphine) 6 mg Q4H PRN PEG SEVERE PAIN LEVEL 7-10 Last administered on 07/08/18 09:45; Admin Dose 6 MG; Start 05/22/18 at 17:00 Acetaminophen (Tylenol Tab) 650 mg Q4H PRN PO MILD PAIN(1-3)OR ELEVATED TEMP Last administered on 07/06/18 21:25; Admin Dose 650 MG; Start 05/31/18 at 13:00 Metoclopramide HCl (Reglan) 5 mg Q6 IV Last administered on 07/09/18 12:48; Admin Dose 5 MG; Start 05/31/18 at 13:00 Collagenase (Santyl) 1 applic DAILY TOP Last administered on 07/09/18 08:51; Admin Dose 1 APPLIC; Start 06/01/18 at 09:00 Clonidine (Catapres) 0.1 mg Q6H PRN PO ELEVATED BLOOD PRESSURE Last administered on 07/09/18 09:08; Admin Dose 0.1 MG; Start 06/03/18 at 03:30 Bumetanide (Bumex) 1 mg BID DIURETICS GTB Last administered on 07/07/18 05:25; Admin Dose 1 MG; Start 06/11/18 at 18:00; Status Hold Collagenase (Santyl) 1 applic PRN PRN TOP WHEN SOILED; Start 06/13/18 at 01:00 Nystatin (Nystatin Powder) 1 applic BID TOP Last administered on 07/09/18 08:51; Admin Dose 1 APPLIC; Start 06/13/18 at 14:00 Epoetin Zen-epbx (RETACRIT(esrd)) 20,000 unit Tu@1700 SC Last administered on 07/07/18 17:03; Admin Dose 20,000 UNIT; Start 06/16/18 at 18:30 Miscellaneous Information 1 ea NOTE XX ; Start 06/26/18 at 08:00 Dicyclomine HCl (Bentyl) 20 mg Q8 PO Last administered on 07/09/18at 05:36; Admin Dose 20 MG; Start 06/27/18 at 22:00 Cholestyramine Resin (Questran Light) 4 gm 0600,1200,1800,2300 GTB Last administered on 07/09/18at 12:48; Admin Dose 4 GM; Start 06/27/18 at 18:00 Lorazepam (Ativan) 0.5 mg Q4 PRN IV ANXIETY Last administered on 07/03/18at 17:32; Admin Dose 0.5 MG; Start 07/01/18 at 14:00 Amiodarone HCl (Cordarone) 200 mg Q8 GTB Last administered on 07/09/18at 05:35; Admin Dose 200 MG; Start 07/05/18 at 22:00 Metoprolol Tartrate (Lopressor) 50 mg Q8 GTB Last administered on 07/09/18 05:35; Admin Dose 50 MG; Start 07/05/18 at 22:00 Furosemide (Lasix) 40 mg ONCE IV ; Start 07/09/18 at 09:00; Stop 07/10/18 at 08:59 Citric Acid/ Sodium Citrate (Bicitra) 60 ml Q8 PO ; Start 07/09/18 at 14:00 ARANZA FAY NP July 09, 2018 14:22
[2018-07-09] MEDS ORDERED: FUROSEMIDE 20 MG INJ IV SCH (15:30)
--- NOTE | 2018-07-09 15:30 | CONS ---
Assessment/Plan Assessment/Plan Hospital Course (Demo Recall) Septic as well as hemorrhagic shock Acute respiratory failure status post intubation and repeat tracheostomy Acute blood loss anemia History of respiratory failure status post decannulation Preserved ejection fraction echocardiogram 05/10/2018 Paroxysmal atrial fibrillation Acute kidney injury -Blood pressure with hypotension today and worsening anemia. Patient plan for 2 units of PRBCs -Would adjust holding parameters on beta-tin -Patient with paroxysmal atrial fibrillation, currently in sinus rhythm Continue amiodarone as tolerated -Vent management as per pulmonary -Fluid management and electrolytes as per renal -Antibiotics as per infectious disease -No anticoagulation given recurrent anemia requiring blood transfusions Consultation Date/Type/Reason Admit Date/Time May 06, 2018 at 17:38 Initial Consult Date 05/10/18 Type of Consult Cardiology Requesting Provider: ROLAND GIRON MD Date/Time of Note DATE: 07/09/18 TIME: 15:28 24 HR Interval Summary Free Text/Dictation Patient with worsening blood pressure today with hypotension as well as worsening anemia Exam/Review of Systems Vital Signs Vitals Vital Signs Date Temp Pulse Resp B/P (MAP) Pulse Ox O2 O2 Flow FiO2 Time Delivery Rate 07/09/18 77 25 92 30 14:53 07/09/18 97.7 138/58 07:46 (84) Intake and Output 07/08/18 07/08/18 07/09/18 1515:00 23:00 07:00 IntakeIntake Total 1380 ml 1080 ml OutputOutput Total 600 ml 650 ml BalanceBalance 780 ml 430 ml Exam Exam No apparent distress, sleeping Head: normocephalic Neck: other (Tracheostomy) Respiratory: other (Coarse breath sounds bilaterally, no wheezing) Cardiovascular: regular rate and rhythm (S1-S2 heard) Gastrointestinal: soft, non-tender, bowel sounds Extremities: edema Labs Result Diagram: 07/09/18 0638 07/09/18 0638 Results 24hrs Laboratory Tests Test 07/08/18 22:40 07/09/18 03:30 07/09/18 06:38 07/09/18 13:31 Stool Occult NEGATIVE Blood Urine Color YELLOW Urine Clarity SLIGHTLY CLOUDY A Urine pH 9.0 Urine Specific 1.013 [employer] Urine Ketones NEGATIVE Urine Nitrite NEGATIVE Urine Bilirubin NEGATIVE Urine NEGATIVE Urobilinogen Urine Leukocyte 3+ H Esterase Urine Microscopic 3 RBC Urine Microscopic 80 H WBC Urine Bacteria FEW A Urine Yeast FEW A (Budding) Urine Hemoglobin NEGATIVE Urine Glucose NEGATIVE Urine Total 1+ H Protein White Blood Count 18.0 #H Red Blood Count 1.93 L Hemoglobin 6.6 *L Hematocrit 21.2 L Mean Corpuscular 109.8 H Volume Mean Corpuscular 34.2 H Hemoglobin Mean Corpuscular 31.1 L Hemoglobin Concen t Red Cell 22.4 H Distribution Width Platelet Count 246 Mean Platelet 10.2 Volume Immature 1.200 H Granulocytes % Neutrophils % 91.8 H Segmented 93 H Neutrophils % (Manual) Band Neutrophils 1 % (Manual) Lymphocytes % 2.5 L Lymphocytes % 1 L (Manual) Monocytes % 3.2 Monocytes % 5 (Manual) Eosinophils % 1.1 Basophils % 0.2 Nucleated Red 1 H Blood Cells % Immature 0.220 H Granulocytes # Neutrophils # 16.5 H Neutrophils # 16.8 H (Manual) Band Neutrophils 0.1 # Lymphocytes 0.1 L (Manual) Lymphocytes # 0.5 L Monocytes # 0.6 Monocytes # 0.9 (Manual) Eosinophils # 0.2 Basophils # 0.0 Nucleated Red 0.1 H Blood Cells # Pathologist YES Review (Hematolog y) Platelet Estimate NORMAL Giant Platelets 1 H Polychromasia 3+ Anisocytosis 2+ Microcytosis 1+ Macrocytosis 1+ Sodium Level 140 Potassium Level 4.2 Chloride Level 110 Carbon Dioxide 16 L Level Anion Gap 14 H Blood Urea 109 H Nitrogen Creatinine 2.18 H Est Glomerular Filtrat Rate mL/min Glucose Level 131 Calcium Level 9.4 Phosphorus Level 3.0 Magnesium Level 1.8 Bedside Glucose 135 Medications Medications Current Medications IV Flush (NS 10 ml) 10 ml PRN IV ; Start 05/06/18 at 20:30 Zinc Sulfate (Zinc Sulfate) 220 mg DAILY GTB Last administered on 07/09/18at 08:50; Admin Dose 220 MG; Start 05/07/18 at 09:00 Ondansetron HCl (Zofran Tab) 4 mg Q6H PRN GTB NAUSEA AND/OR VOMITING Last administered on 05/31/18at 16:47; Admin Dose 4 MG; Start 05/07/18 at 00:15 Multivitamins (Multivitamin) 30 ml DAILY GTB Last administered on 07/09/18at 08:51; Admin Dose 30 ML; Start 05/07/18 at 09:00 Miscellaneous Information (Pending Santyl Order For Wound Care) This patient goldman... PRN PRN XX WOUND CARE; Start 05/09/18 at 17:00 Spironolactone (Aldactone) 50 mg DAILY GTB Last administered on 07/09/18 08:50; Admin Dose 50 MG; Start 05/21/18 at 09:00 Famotidine (Pepcid) 20 mg DAILY PEG Last administered on 07/09/18 08:50; Admin Dose 20 MG; Start 05/23/18 at 09:00 Morphine Sulfate (morphine) 6 mg Q4H PRN PEG SEVERE PAIN LEVEL 7-10 Last administered on 07/08/18 09:45; Admin Dose 6 MG; Start 05/22/18 at 17:00 Acetaminophen (Tylenol Tab) 650 mg Q4H PRN PO MILD PAIN(1-3)OR ELEVATED TEMP Last administered on 07/06/18 21:25; Admin Dose 650 MG; Start 05/31/18 at 13:00 Metoclopramide HCl (Reglan) 5 mg Q6 IV Last administered on 07/09/18 12:48; Admin Dose 5 MG; Start 05/31/18 at 13:00 Collagenase (Santyl) 1 applic DAILY TOP Last administered on 07/09/18 08:51; Admin Dose 1 APPLIC; Start 06/01/18 at 09:00 Clonidine (Catapres) 0.1 mg Q6H PRN PO ELEVATED BLOOD PRESSURE Last administered on 07/09/18 09:08; Admin Dose 0.1 MG; Start 06/03/18 at 03:30 Bumetanide (Bumex) 1 mg BID DIURETICS GTB Last administered on 07/07/18 05:25; Admin Dose 1 MG; Start 06/11/18 at 18:00; Status Hold Collagenase (Santyl) 1 applic PRN PRN TOP WHEN SOILED; Start 06/13/18 at 01:00 Nystatin (Nystatin Powder) 1 applic BID TOP Last administered on 07/09/18 08:51; Admin Dose 1 APPLIC; Start 06/13/18 at 14:00 Epoetin Zen-epbx (RETACRIT(esrd)) 20,000 unit Tu@1700 SC Last administered on 07/07/18 17:03; Admin Dose 20,000 UNIT; Start 06/16/18 at 18:30 Miscellaneous Information 1 ea NOTE XX ; Start 06/26/18 at 08:00 Dicyclomine HCl (Bentyl) 20 mg Q8 PO Last administered on 07/09/18at 15:18; Admin Dose 20 MG; Start 06/27/18 at 22:00 Cholestyramine Resin (Questran Light) 4 gm 0600,1200,1800,2300 GTB Last administered on 07/09/18at 12:48; Admin Dose 4 GM; Start 06/27/18 at 18:00 Lorazepam (Ativan) 0.5 mg Q4 PRN IV ANXIETY Last administered on 07/03/18 17:32; Admin Dose 0.5 MG; Start 07/01/18 at 14:00 Amiodarone HCl (Cordarone) 200 mg Q8 GTB Last administered on 07/09/18 05:35; Admin Dose 200 MG; Start 07/05/18 at 22:00 Metoprolol Tartrate (Lopressor) 50 mg Q8 GTB Last administered on 07/09/18 05:35; Admin Dose 50 MG; Start 07/05/18 at 22:00 Citric Acid/ Sodium Citrate (Bicitra) 60 ml Q8 PO Last administered on 07/09/18 15:18; Admin Dose 60 ML; Start 07/09/18 at 14:00 Furosemide (Lasix) 20 mg ONCE IV ; Start 07/09/18 at 15:30; Stop 07/09/18 at 23:00 Evangelista Scanlon DO July 09, 2018 15:30
[2018-07-09] MEDS ORDERED: AMIKACIN IV PER PHARMACY XX SCH (17:30)
[2018-07-09] MEDS: VANCOMYCIN HCL 250 MG/5ML POSYG GTB SCH ×2 (18:00→23:31)
[2018-07-09] MEDS: LINEZOLID 600 MG/300 ML (PMX) 300 ML IVPB SCH (22:02)
[2018-07-09] MEDS: AMIKACIN 350 MG in SOD CHLORIDE 0.9% 100 ML IVPB SCH (22:06)
[2018-07-09] MEDS: Metronidazole 500 MG in NS 100 ML IVPB SCH (23:33)
[2018-07-10] VITALS (20 sets, daily range): BP systolic 105–163; BP diastolic 53–98; PULSE 67–78; RESP 16–25
[2018-07-10] MEDS: DICYCLOMINE 10 MG CAP PO SCH ×3 (05:25→21:32)
[2018-07-10] MEDS: VANCOMYCIN HCL 250 MG/5ML POSYG GTB SCH ×4 (05:25→23:33)
[2018-07-10] MEDS: CITRIC ACID/NA CITRATE 30 ML CUP PO SCH ×3 (05:25→21:31)
[2018-07-10] MEDS: AMIODARONE 200 MG TAB GTB SCH ×3 (05:27→21:32)
[2018-07-10] MEDS: METOPROLOL 50 MG TAB GTB SCH ×3 (05:28→21:32)
[2018-07-10] MEDS: METOCLOPRAMIDE 10 MG INJ IV SCH ×4 (05:28→23:33)
[2018-07-10] MEDS: CHOLESTYRAMINE (LIGHT) 4 GM PACKET GTB SCH ×4 (05:28→23:33)
[2018-07-10] MEDS: Metronidazole 500 MG in NS 100 ML IVPB SCH ×3 (06:29→21:27)
[2018-07-10] MEDS: MULTIVITAMINS 30 ML CUP GTB SCH (09:11)
[2018-07-10] MEDS: COLLAGENASE 5 GM (UD JAR) TOP SCH (09:11)
[2018-07-10] MEDS: ZINC SULFATE 220 MG CAP GTB SCH (09:12)
[2018-07-10] MEDS: FAMOTIDINE 20 MG TAB PEG SCH (09:12)
[2018-07-10] MEDS: NYSTATIN 30 GM POWDER BTL TOP SCH ×2 (09:12→21:31)
[2018-07-10] MEDS: SPIRONOLACTONE 25 MG TAB GTB SCH (09:12)
[2018-07-10] MEDS: BALSAM PERU/CASTOR OIL 60 GM TUBE TOP SCH ×2 (09:12→21:31)
[2018-07-10] MEDS: LINEZOLID 600 MG/300 ML (PMX) 300 ML IVPB SCH ×2 (09:13→21:28)
--- NOTE | 2018-07-10 09:30 | PN ---
DATE: 07/10/2018 SUBJECTIVE: The patient is stable, no events overnight. OBJECTIVE: VITAL SIGNS: Blood pressure is 121/69, pulse 76, respirations 21, temperature 98.0. HEENT: Head is normocephalic. NECK: Supple. HEART: Regular rate. LUNGS: Show diminished breath sounds at the base. ABDOMEN: Soft, nontender to palpation without rebound or guarding. EXTREMITIES: Negative for clubbing, cyanosis. Trace edema. DERMATOLOGIC: No rashes. MUSCULOSKELETAL: No joint effusion. NEUROLOGIC: No change in exam. MEDICATIONS: The patient's medications have been reviewed. LABORATORY DATA: Reviewed. IMAGING STUDIES: Reviewed. ASSESSMENT AND PLAN: 1. Nonoliguric acute kidney injury on top of chronic kidney disease with previous baseline creatinin e around 2.0 mg/dL. Etiology of acute kidney injury was initially due to acute tubular necrosis. Th e patient is status post hemodialysis. The patient showed renal recovery. However, over the past se veral days, the patient had a decline in renal function. This may be secondary to nephrotoxicity, an tibiotics, recurrent acute tubular necrosis, questionable cardiorenal syndrome. The patient has been given a fluid challenge without clinical improvement. Plan is to continue current treatment plans, supportive care, renally dose all medications. We will discuss with infectious disease about adjusti ng antibiotic therapy. No immediate need for renal placement therapy at this time. 2. Metabolic acidosis. Continue Bicitra. 3. Hypernatremia, resolved. 4. Hypomagnesemia. Continue to monitor and replete. 5. Mineral bone disorder, monitor calcium and phosphorus levels. 6. Volume overload. Continue patient intermittent diuretic therapy. 7. Anemia. Monitor hemoglobin and hematocrit levels. 8. Ventilator-dependent respiratory failure. Vent settings have been reviewed. Continue to monitor . 9. Sepsis, status post shock. The patient is completing antibiotic course. 10. Clostridium difficile. The patient has completed vancomycin. 11. Dysphagia. Continue tube feeding. 12. Encephalopathy. Continue to monitor. 13. Lower extremity wounds. Continue wound care. Dictated By: JEANA BANSAL DO NR/NTS Conf#: [id number] DID#: [id number] CC: QUINTEN UMAÑA MD; ROLAND GIRON MD;*EndCC*
--- NOTE | 2018-07-10 12:27 | CONS ---
Assessment/Plan Assessment/Plan Hospital Course (Demo Recall) Septic as well as hemorrhagic shock Acute respiratory failure status post intubation and repeat tracheostomy Acute blood loss anemia History of respiratory failure status post decannulation Preserved ejection fraction echocardiogram 05/10/2018 Paroxysmal atrial fibrillation Acute kidney injury -Blood pressure trend has been labile. We will continue to hold antihypertensives, continue beta-tin if blood pressure permits -Would DC Aldactone given worsening renal function -Patient with paroxysmal atrial fibrillation, currently in sinus rhythm -Continue amiodarone as tolerated -Vent management as per pulmonary -Fluid management and electrolytes as per renal -Antibiotics as per infectious disease -No anticoagulation given recurrent anemia requiring blood transfusions Consultation Date/Type/Reason Admit Date/Time May 06, 2018 at 17:38 Initial Consult Date 05/10/18 Type of Consult Cardiology Requesting Provider: ROLAND GIRON MD Date/Time of Note DATE: 07/10/18 TIME: 12:26 24 HR Interval Summary Free Text/Dictation Denies shortness of breath, palpitations Exam/Review of Systems Vital Signs Vitals Vital Signs Date Temp Pulse Resp B/P (MAP) Pulse Ox O2 O2 Flow FiO2 Time Delivery Rate 07/10/18 75 22 99 30 11:45 07/10/18 98.0 136/76 Mechanical 11:27 (96) Ventilator Intake and Output 07/09/18 07/09/18 07/10/18 1515:00 23:00 07:00 IntakeIntake Total 300 ml 980 ml 880 ml OutputOutput Total 300 ml 1150 ml BalanceBalance 300 ml 680 ml -270 ml Exam Constitutional: alert (No apparent distress, following commands) Head: normocephalic Respiratory: other (Coarse breath sounds bilaterally, no wheezing) Cardiovascular: regular rate and rhythm (S1-S2 heard) Gastrointestinal: soft, non-tender, bowel sounds Extremities: edema Labs Result Diagram: 07/10/18 0629 07/10/18 0629 Results 24hrs Laboratory Tests Test 07/09/18 13:31 07/09/18 18:15 07/10/18 06:29 Bedside Glucose 135 Urine Color YELLOW Urine Clarity CLOUDY A Urine pH 9.0 Urine Specific [place] 1.014 Urine Ketones NEGATIVE Urine Nitrite NEGATIVE Urine Bilirubin NEGATIVE Urine Urobilinogen NEGATIVE Urine Leukocyte Esterase 3+ H Urine Microscopic RBC 1 Urine Microscopic WBC 3 Urine Bacteria FEW A Urine Hemoglobin NEGATIVE Urine Random Creatinine 34.34 Urine Random Sodium 39 Urine Glucose NEGATIVE Urine Total Protein 2+ H White Blood Count 13.1 #H Red Blood Count 2.98 #L Hemoglobin 9.5 #L Hematocrit 30.4 #L Mean Corpuscular Volume 102.0 H Mean Corpuscular Hemoglobin 31.9 Mean Corpuscular Hemoglobin Concent 31.3 L Red Cell Distribution Width 23.5 H Platelet Count 195 # Mean Platelet Volume 9.9 Immature Granulocytes % 0.500 H Neutrophils % 87.9 H Lymphocytes % 4.8 L Monocytes % 5.8 Eosinophils % 0.8 Basophils % 0.2 Nucleated Red Blood Cells % 0.3 H Immature Granulocytes # 0.070 H Neutrophils # 11.5 H Lymphocytes # 0.6 L Monocytes # 0.8 Eosinophils # 0.1 Basophils # 0.0 Nucleated Red Blood Cells # 0.0 Sodium Level 143 Potassium Level 3.9 Chloride Level 113 H Carbon Dioxide Level 16 L Anion Gap 14 H Blood Urea Nitrogen 112 H Creatinine 2.32 H Est Glomerular Filtrat Rate mL/min Glucose Level 143 Calcium Level 9.1 Phosphorus Level 3.5 Magnesium Level 1.8 Medications Medications Current Medications IV Flush (NS 10 ml) 10 ml PRN IV ; Start 05/06/18 at 20:30 Zinc Sulfate (Zinc Sulfate) 220 mg DAILY GTB Last administered on 07/10/18 09:12; Admin Dose 220 MG; Start 05/07/18 at 09:00 Ondansetron HCl (Zofran Tab) 4 mg Q6H PRN GTB NAUSEA AND/OR VOMITING Last administered on 05/31/18at 16:47; Admin Dose 4 MG; Start 05/07/18 at 00:15 Multivitamins (Multivitamin) 30 ml DAILY GTB Last administered on 07/10/18 09:11; Admin Dose 30 ML; Start 05/07/18 at 09:00 Miscellaneous Information (Pending Santyl Order For Wound Care) This patient goldman... PRN PRN XX WOUND CARE; Start 05/09/18 at 17:00 Spironolactone (Aldactone) 50 mg DAILY GTB Last administered on 07/10/18 09:12; Admin Dose 50 MG; Start 05/21/18 at 09:00 Famotidine (Pepcid) 20 mg DAILY PEG Last administered on 07/10/18 09:12; Admin Dose 20 MG; Start 05/23/18 at 09:00 Morphine Sulfate (morphine) 6 mg Q4H PRN PEG SEVERE PAIN LEVEL 7-10 Last administered on 07/08/18 09:45; Admin Dose 6 MG; Start 05/22/18 at 17:00 Acetaminophen (Tylenol Tab) 650 mg Q4H PRN PO MILD PAIN(1-3)OR ELEVATED TEMP Last administered on 07/06/18 21:25; Admin Dose 650 MG; Start 05/31/18 at 13:00 Metoclopramide HCl (Reglan) 5 mg Q6 IV Last administered on 07/10/18 12:13; Admin Dose 5 MG; Start 05/31/18 at 13:00 Collagenase (Santyl) 1 applic DAILY TOP Last administered on 07/10/18 09:11; Admin Dose 1 APPLIC; Start 06/01/18 at 09:00 Clonidine (Catapres) 0.1 mg Q6H PRN PO ELEVATED BLOOD PRESSURE Last administered on 07/09/18 09:08; Admin Dose 0.1 MG; Start 06/03/18 at 03:30 Bumetanide (Bumex) 1 mg BID DIURETICS GTB Last administered on 07/07/18 05:25; Admin Dose 1 MG; Start 06/11/18 at 18:00; Status Hold Collagenase (Santyl) 1 applic PRN PRN TOP WHEN SOILED; Start 06/13/18 at 01:00 Nystatin (Nystatin Powder) 1 applic BID TOP Last administered on 07/10/18 09:12; Admin Dose 1 APPLIC; Start 06/13/18 at 14:00 Epoetin Zen-epbx (RETACRIT(esrd)) 20,000 unit Tu@1700 SC Last administered on 07/07/18 17:03; Admin Dose 20,000 UNIT; Start 06/16/18 at 18:30 Miscellaneous Information 1 ea NOTE XX ; Start 06/26/18 at 08:00 Dicyclomine HCl (Bentyl) 20 mg Q8 PO Last administered on 07/10/18 05:25; Admin Dose 20 MG; Start 06/27/18 at 22:00 Cholestyramine Resin (Questran Light) 4 gm 0600,1200,1800,2300 GTB Last administered on 07/10/18 12:14; Admin Dose 4 GM; Start 06/27/18 at 18:00 Lorazepam (Ativan) 0.5 mg Q4 PRN IV ANXIETY Last administered on 07/03/18 17:32; Admin Dose 0.5 MG; Start 07/01/18 at 14:00 Amiodarone HCl (Cordarone) 200 mg Q8 GTB Last administered on 07/10/18 05:27; Admin Dose 200 MG; Start 07/05/18 at 22:00 Metoprolol Tartrate (Lopressor) 50 mg Q8 GTB Last administered on 07/09/18 21:48; Admin Dose 50 MG; Start 07/05/18 at 22:00 Citric Acid/ Sodium Citrate (Bicitra) 60 ml Q8 PO Last administered on 07/10/18 05:25; Admin Dose 60 ML; Start 07/09/18 at 14:00 Amikacin Sulfate (Amikacin Iv Per Pharmacy) 1 ea NOTE XX ; Start 07/09/18 at 17:30 Linezolid 300 ml @ 300 mls/hr Q12 IVPB Last administered on 07/10/18 09:13; Admin Dose 300 MLS/HR; Start 07/09/18 at 21:00 Vancomycin HCl (Vancomycin Oral Syringe) 125 mg Q6 GTB Last administered on 07/10/18 12:14; Admin Dose 125 MG; Start 07/09/18 at 18:00 Amikacin Sulfate 350 mg/Sodium Chloride 101.4 ml @ 101.4 mls/ hr Q48H IVPB Last administered on 07/09/18 22:06; Admin Dose 101.4 MLS/HR; Start 07/09/18 at 20:30 Metronidazole 100 ml @ 100 mls/hr Q8 IVPB Last administered on 07/10/18 06:29; Admin Dose 100 MLS/HR; Start 07/09/18 at 22:00 Evangelista Scanlon DO July 10, 2018 12:27
--- NOTE | 2018-07-10 13:24 | CONS ---
Assessment/Plan Assessment/Plan Hospital Course (Demo Recall) # sepsis, leukocytosis, SIRS, pulmonary, cardiac - recurrent leukocytosis due to recurrent UTI, improved - s/p septic shock due to pneumonia and C diff colitis - acute on chronic hypoxic respiratory failure, persistent - s/p reintubation 05/12/2018 - s/p re-do trach on 05/29/2018 - recurrent colonization of the anterior neck wound with ESBL+kleb, MRSA, GBS, corynebacteria on 05/06/2018, s/p meropenem - h/o pneumonia vs. colonization of the airway by pseudomonas and ESBL+klebsiella - h/o possible, recurrent HCAP due to pseudomonas and ESBL+klebsiella - h/o recurrent HCAP due to MRSA and Enterobacter (culture of tracheal aspirate on 07/16/2017 that was collected at [facility]) . Pt took vancomycin and ceftazidime - h/o decannulation prior to admission - h/o tracheostomy on 06/11/2017 - h/o SIRS from UGIB in 2018 - h/o thoracentesis on 07/18/2017, transudative (protein <2, LDH 279) - h/o bleeding from the trach site in 2018 - h/o septic shock due to pneumonia, ARDS, bacteremia, fungemia in 2018 - h/o ARDS in 2018 - h/o smoking - COPD - h/o ILD per medical record - h/o PAF, improved # GI - possible ileus or enterocolitis on CT abd/pel 06/15/2018 - C diff colitis, diagnosed on 05/11/2018. Pt's on pGT vancomycin induction followed by taper (05/11/2018-); Pt previously took IV metronidazole (05/11/2018- 05/29/2018; restart 05/30/2018-06/05/18) too - h/o intermittent diarrhea, Pt had multiple negative C. diff tests at [facility] at OSH in the past; none was positive until 05/11/2018 - dysphagia - h/o PEG placement 06/13/2018 - protein calorie malnutrition - h/o coffee ground emesis/UGIB on 12/23/2017 due to deep ulceration of distal esophagus and gastritis on EGD 12/26/2017. No e/o H. pylori - h/o possible appendicitis on CT on 11/22/2017, Pt took ertapenem (11/24/2017-12/01/2017) - h/o extensive adhesions lower abdominal and pelvis between small bowel to each other and to colon and to abdominal wall, anterior pelvic wall chronic abscess secondary to probably an old perforated diverticulitis, torsion of small bowel around these dense adhesion causing multiple obstructive points - h/o laparoscopic exploration and extensive lysis of adhesions and drainage of anterior pelvic wall abscess 09/16/2017. Cultures were negative, no e/o malignancy. 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 S/p renally dosed amikacin for klebsiella in her urine culture (06/17-06/22/2018) - UTI due to pseudomonas and ESBL+klebsiella on 06/09/2018, Pt took one dose of fosfomycin on 06/10/2018 and cipro 06/12-06/15/2018 - anasarca - started on HD on 05/15/2018, via Juan in R groin - recurrent NATHAN on CKD - 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 Her strain of CRE was sensitive to colistin, Avycaz, and Vabomere but resistant to Zerbaxa (reported on 05/19/2018) - metabolic acidosis - adrenal insufficiency - h/o vaginal bleed in 2018 - h/o colonization of urinary tract by ESBL+klebsiella, VRE - h/o recurrent, symptomatic UTI due to carbapenem-resistant kleb (MDR strain) per urine culture 10/04/17, 10/09/17, 10/21/2017, P took colistin (10/09/2017- 10/15/2017), fosfomycin for carbapenemase-producing klebsiella and VRE on 10/25/2017 and 10/28/2017 - h/o funguria - h/o urinary retention # fungemia, bacteremia 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; Pt declined surgery for MVR per outside medical records; TTE 07/01/17 did not mention any thrombus; s/p voriconazole (05/25/2017-08/01/2017) - h/o bacteremia due to MSSA and proteus s/p ceftriaxone; repeat blood cultures were negative on 06/14/2017 # musculoskeletal and dermatological - L hand pain - dry skin - chronic wound of LLE - h/o infection of wound of LLE - h/o debridement of wound of LLE on 08/06/2017 - h/o recurrent herpes labialis, Pt took acyclovir, valacyclovir - h/o Osler's nodes (eschar) of R toes with erythematous skin; desquamation of the skin and open lacerations on R plantar foot. improved. Probable manifestation of endocarditis. Pt declined MRI on 08/06/2017 - h/o infection of R toes due to pseudomonas. coagulase negative Staph likely a colonizer - h/o intertrigo of the groin, resolved with nystatin powder - h/o scabies, locally crusted lesion over L scapula, s/p permethrin cream and pGT ivermectin on 08/11/2017, 08/12/2017, 08/19/2017. Repeat skin scraping on 08/21/2017 was negative for scabies # psych, neuro - decreased hearing b/l - s/p acute toxic metabolic encephalopathy - h/o critical illness polyneuropathy - anxiety/depression, bipolar d/o, seen by Psychiatry in the past - chronic pain syndrome - h/o medical non-compliance: she would refuse her medications, treatment and straight catheterization in 2018 # hematological, vascular - chronic anemia requiring blood transfusion intermittently - macrocytic anemia - aneurysmal dilatation of the distal aorta visualized on CT 06/15/2018 - PVD Recommendations: - Continue Vanco pGT (07/09/18/ - ) and flagyl IV (07/09/18 - ) - Continue Amikacin IV (renal dosing) and Linezolid IV (07/09/18/ - ) - Ordered: Repeat blood cultures x2 15 min apart - 1 set from peripheral and 1 set from PICC - F/u blood cultures 07/09/18 (GNR) - yesterday 1 set was done from peripheral an d one from PICC, urine cx (GNR), and sputum (growing mixed gram neg contaminants) - Monitor CrCl closely - Trend WBC - S/p renally dosed amikacin for klebsiella in her urine culture (06/17-06/22/2018) Plan was d/w JAYANT Mina and with patient verbally, and with Dr. Doyle via telem[employer] messaging. Consultation Date/Type/Reason Admit Date/Time May 06, 2018 at 17:38 Initial Consult Date 05/07/18 Type of Consult ID Requesting Provider: ROLAND GIRON MD Date/Time of Note DATE: 07/10/18 TIME: 13:20 24 HR Interval Summary Free Text/Dictation Blood cultures yesterday were done 1 set from peripheral and 1 set from picc. The patient has soft to watery stools. D/w JAYANT Mina. The patient appeared tearful when I saw her. When I asked if she is ok, or ROS questions, her response to me was "I don't know" to every question. Exam/Review of Systems Exam Vitals Vital Signs Date Temp Pulse Resp B/P (MAP) Pulse Ox O2 O2 Flow FiO2 Time Delivery Rate 07/10/18 72 12:28 07/10/18 22 99 30 11:45 07/10/18 98.0 136/76 Mechanical 11:27 (96) Ventilator Allergies Coded Allergies shellfish derived (Unverified Allergy, Unknown, 05/06/18) Intake and Output 07/09/18 07/09/18 07/10/18 1515:00 23:00 07:00 IntakeIntake Total 300 ml 980 ml 880 ml OutputOutput Total 300 ml 1150 ml BalanceBalance 300 ml 680 ml -270 ml Exam Exam Constitutional: well developed, non-verbal, frail, obese, other (chronically debilitated, awake, appeared tearful) Head: normocephalic, atraumatic Eyes: nl conjunctiva, nl lids, nl sclera ENMT: nl external ears & nose, nl nasal mucosa & septum Neck: supple, non-tender, other (on vent via trach, trach midline, site is c/d/i) Respiratory: normal air movement, diminished breath sounds (bilaterally, anteriorly); No wheezing Cardiovascular: regular rate and rhythm, nl pulses Gastrointestinal: soft, non-tender, bowel sounds (normoactive), other (PEG site c/d/i, connected to TF); No distended, No firm Genitourinary - Female: other (F/c draining yellow urine. +Intertrigo of groin) Musculoskeletal: muscle weakness, other (julia foot drop) Extremities: normal pulses, edema (BUE, BLE); No tenderness Neurological: other (alert, follows simple commands, able to questions by mouthing words and shaking head yes or no) Skin: nl turgor, other (Reviewed nsg notes/photos. LLE dressing c/d/i) Results Result Diagram: 07/10/1862807/10/18628 Results 24hrs Laboratory Tests Test 07/09/18 13:31 07/09/18 18:15 07/10/18 06:29 Bedside Glucose 135 Urine Color YELLOW Urine Clarity CLOUDY A Urine pH 9.0 Urine Specific [place] 1.014 Urine Ketones NEGATIVE Urine Nitrite NEGATIVE Urine Bilirubin NEGATIVE Urine Urobilinogen NEGATIVE Urine Leukocyte Esterase 3+ H Urine Microscopic RBC 1 Urine Microscopic WBC 3 Urine Bacteria FEW A Urine Hemoglobin NEGATIVE Urine Random Creatinine 34.34 Urine Random Sodium 39 Urine Glucose NEGATIVE Urine Total Protein 2+ H White Blood Count 13.1 #H Red Blood Count 2.98 #L Hemoglobin 9.5 #L Hematocrit 30.4 #L Mean Corpuscular Volume 102.0 H Mean Corpuscular Hemoglobin 31.9 Mean Corpuscular Hemoglobin Concent 31.3 L Red Cell Distribution Width 23.5 H Platelet Count 195 # Mean Platelet Volume 9.9 Immature Granulocytes % 0.500 H Neutrophils % 87.9 H Lymphocytes % 4.8 L Monocytes % 5.8 Eosinophils % 0.8 Basophils % 0.2 Nucleated Red Blood Cells % 0.3 H Immature Granulocytes # 0.070 H Neutrophils # 11.5 H Lymphocytes # 0.6 L Monocytes # 0.8 Eosinophils # 0.1 Basophils # 0.0 Nucleated Red Blood Cells # 0.0 Sodium Level 143 Potassium Level 3.9 Chloride Level 113 H Carbon Dioxide Level 16 L Anion Gap 14 H Blood Urea Nitrogen 112 H Creatinine 2.32 H Est Glomerular Filtrat Rate mL/min Glucose Level 143 Calcium Level 9.1 Phosphorus Level 3.5 Magnesium Level 1.8 Imaging Imaging CXR 07/09/18 IMPRESSION: Tracheostomy tube and right arm PICC line in place. Cardiomegaly with calcific atherosclerosis of the aorta. Diffuse bilateral interstitial infiltrates are unchanged.. Medications Medication Current Medications IV Flush (NS 10 ml) 10 ml PRN IV ; Start 05/06/18 at 20:30 Zinc Sulfate (Zinc Sulfate) 220 mg DAILY GTB Last administered on 07/10/18 09:12; Admin Dose 220 MG; Start 05/07/18 at 09:00 Ondansetron HCl (Zofran Tab) 4 mg Q6H PRN GTB NAUSEA AND/OR VOMITING Last administered on 05/31/18 16:47; Admin Dose 4 MG; Start 05/07/18 at 00:15 Multivitamins (Multivitamin) 30 ml DAILY GTB Last administered on 07/10/18 09:11; Admin Dose 30 ML; Start 05/07/18 at 09:00 Miscellaneous Information (Pending [facility] Order For Wound Care) This patient goldman... PRN PRN XX WOUND CARE; Start 05/09/18 at 17:00 Famotidine (Pepcid) 20 mg DAILY PEG Last administered on 07/10/18 09:12; Admin Dose 20 MG; Start 05/23/18 at 09:00 Morphine Sulfate (morphine) 6 mg Q4H PRN PEG SEVERE PAIN LEVEL 7-10 Last a dministered on 07/08/18 09:45; Admin Dose 6 MG; Start 05/22/18 at 17:00 Acetaminophen (Tylenol Tab) 650 mg Q4H PRN PO MILD PAIN(1-3)OR ELEVATED TEMP Last administered on 07/06/18 21:25; Admin Dose 650 MG; Start 05/31/18 at 13:00 Metoclopramide HCl (Reglan) 5 mg Q6 IV Last administered on 07/10/18 12:13; Admin Dose 5 MG; Start 05/31/18 at 13:00 Collagenase (Santyl) 1 applic DAILY TOP Last administered on 07/10/18 09:11; Admin Dose 1 APPLIC; Start 06/01/18 at 09:00 Clonidine (Catapres) 0.1 mg Q6H PRN PO ELEVATED BLOOD PRESSURE Last administered on 07/09/18 09:08; Admin Dose 0.1 MG; Start 06/03/18 at 03:30 Bumetanide (Bumex) 1 mg BID DIURETICS GTB Last administered on 07/07/18 05:25; Admin Dose 1 MG; Start 06/11/18 at 18:00; Status Hold Collagenase (Santyl) 1 applic PRN PRN TOP WHEN SOILED; Start 06/13/18 at 01:00 Nystatin (Nystatin Powder) 1 applic BID TOP Last administered on 07/10/18 09:12; Admin Dose 1 APPLIC; Start 06/13/18 at 14:00 Epoetin Zen-epbx (RETACRIT(esrd)) 20,000 unit Tu@1700 SC Last administered on 07/07/18 17:03; Admin Dose 20,000 UNIT; Start 06/16/18 at 18:30 Miscellaneous Information 1 ea NOTE XX ; Start 06/26/18 at 08:00 Dicyclomine HCl (Bentyl) 20 mg Q8 PO Last administered on 07/10/18 05:25; Admin Dose 20 MG; Start 06/27/18 at 22:00 Cholestyramine Resin (Questran Light) 4 gm 0600,1200,1800,2300 GTB Last administered on 07/10/18 12:14; Admin Dose 4 GM; Start 06/27/18 at 18:00 Lorazepam (Ativan) 0.5 mg Q4 PRN IV ANXIETY Last administered on 07/03/18 17:32; Admin Dose 0.5 MG; Start 07/01/18 at 14:00 Amiodarone HCl (Cordarone) 200 mg Q8 GTB Last administered on 07/10/18 05:27; Admin Dose 200 MG; Start 07/05/18 at 22:00 Metoprolol Tartrate (Lopressor) 50 mg Q8 GTB Last administered on 07/09/18 21:48; Admin Dose 50 MG; Start 07/05/18 at 22:00 Citric Acid/ Sodium Citrate (Bicitra) 60 ml Q8 PO Last administered on 07/10/18at 05:25; Admin Dose 60 ML; Start 07/09/18 at 14:00 Amikacin Sulfate (Amikacin Iv Per Pharmacy) 1 ea NOTE XX ; Start 07/09/18 at 17:30 Linezolid 300 ml @ 300 mls/hr Q12 IVPB Last administered on 07/10/18at 09:13; Admin Dose 300 MLS/HR; Start 07/09/18 at 21:00 Vancomycin HCl (Vancomycin Oral Syringe) 125 mg Q6 GTB Last administered on 07/10/18at 12:14; Admin Dose 125 MG; Start 07/09/18 at 18:00 Amikacin Sulfate 350 mg/Sodium Chloride 101.4 ml @ 101.4 mls/ hr Q48H IVPB Last administered on 07/09/18at 22:06; Admin Dose 101.4 MLS/HR; Start 07/09/18 at 20:30 Metronidazole 100 ml @ 100 mls/hr Q8 IVPB Last administered on 07/10/18at 06:29; Admin Dose 100 MLS/HR; Start 07/09/18 at 22:00 KENA MÉNDEZ NP July 10, 2018 13:24
--- NOTE | 2018-07-10 15:17 | CONS ---
Assessment/Plan Assessment/Plan Assessment/Plan (Daily) 1. ABD pain 2. Renal failure.- on HD 3. Vent dependent resp failure 4. Chronic obstructive pulmonary disease. 5. Bipolar. 6. Paroxysmal atrial fibrillation. 7. Anemia of chronic disease. 8. CHF 9. Diarrhea 11. Diarrhea -s/p c diff colitis -taper off of vanco -resolved 12. H/O deep esophageal ulcer 13. Dysphagia with g tube 14. Anemia of chronic disease 15. UTI with positive cx PLAN: Continue with reglan and pepcid and bentyl Monitor tube feeds residuals q 6 hour monitor for acute GI bleeding so far stool for occult blood had been negative Consultation Date/Type/Reason Admit Date/Time May 06, 2018 at 17:38 Initial Consult Date 05/10/18 Requesting Provider: ROLAND GIRON MD Date/Time of Note DATE: 07/10/18 TIME: 15:16 24 HR Interval Summary Free Text/Dictation No acute GI bleeding Patient had a significant drop in her hematocrit yesterday Constitutional: no complaints Exam/Review of Systems Exam Vitals Vital Signs Date Temp Pulse Resp B/P (MAP) Pulse Ox O2 O2 Flow FiO2 Time Delivery Rate 07/10/18 72 12:28 07/10/18 22 99 30 11:45 07/10/18 98.0 136/76 Mechanical 11:27 (96) Ventilator Intake and Output 07/09/18 07/09/18 07/10/18 1515:00 23:00 07:00 IntakeIntake Total 300 ml 980 ml 880 ml OutputOutput Total 300 ml 1150 ml BalanceBalance 300 ml 680 ml -270 ml Constitutional: alert ENMT: intubated Neck: supple, non-tender Results Result Diagram: 07/10/18 0629 07/10/18 0629 Results 24hrs Laboratory Tests Test 07/09/18 18:15 07/10/18 06:29 Urine Color YELLOW Urine Clarity CLOUDY A Urine pH 9.0 Urine Specific [place] 1.014 Urine Ketones NEGATIVE Urine Nitrite NEGATIVE Urine Bilirubin NEGATIVE Urine Urobilinogen NEGATIVE Urine Leukocyte Esterase 3+ H Urine Microscopic RBC 1 Urine Microscopic WBC 3 Urine Bacteria FEW A Urine Hemoglobin NEGATIVE Urine Random Creatinine 34.34 Urine Random Sodium 39 Urine Glucose NEGATIVE Urine Total Protein 2+ H White Blood Count 13.1 #H Red Blood Count 2.98 #L Hemoglobin 9.5 #L Hematocrit 30.4 #L Mean Corpuscular Volume 102.0 H Mean Corpuscular Hemoglobin 31.9 Mean Corpuscular Hemoglobin Concent 31.3 L Red Cell Distribution Width 23.5 H Platelet Count 195 # Mean Platelet Volume 9.9 Immature Granulocytes % 0.500 H Neutrophils % 87.9 H Lymphocytes % 4.8 L Monocytes % 5.8 Eosinophils % 0.8 Basophils % 0.2 Nucleated Red Blood Cells % 0.3 H Immature Granulocytes # 0.070 H Neutrophils # 11.5 H Lymphocytes # 0.6 L Monocytes # 0.8 Eosinophils # 0.1 Basophils # 0.0 Nucleated Red Blood Cells # 0.0 Sodium Level 143 Potassium Level 3.9 Chloride Level 113 H Carbon Dioxide Level 16 L Anion Gap 14 H Blood Urea Nitrogen 112 H Creatinine 2.32 H Est Glomerular Filtrat Rate mL/min Glucose Level 143 Calcium Level 9.1 Phosphorus Level 3.5 Magnesium Level 1.8 Medications Medication Current Medications IV Flush (NS 10 ml) 10 ml PRN IV ; Start 05/06/18 at 20:30 Zinc Sulfate (Zinc Sulfate) 220 mg DAILY GTB Last administered on 07/10/18 09:12; Admin Dose 220 MG; Start 05/07/18 at 09:00 Ondansetron HCl (Zofran Tab) 4 mg Q6H PRN GTB NAUSEA AND/OR VOMITING Last administered on 05/31/18 16:47; Admin Dose 4 MG; Start 05/07/18 at 00:15 Multivitamins (Multivitamin) 30 ml DAILY GTB Last administered on 07/10/18 09:11; Admin Dose 30 ML; Start 05/07/18 at 09:00 Miscellaneous Information (Pending Santyl Order For Wound Care) This patient goldman... PRN PRN XX WOUND CARE; Start 05/09/18 at 17:00 Famotidine (Pepcid) 20 mg DAILY PEG Last administered on 07/10/18 09:12; Admin Dose 20 MG; Start 05/23/18 at 09:00 Morphine Sulfate (morphine) 6 mg Q4H PRN PEG SEVERE PAIN LEVEL 7-10 Last administered on 07/08/18 09:45; Admin Dose 6 MG; Start 05/22/18 at 17:00 Acetaminophen (Tylenol Tab) 650 mg Q4H PRN PO MILD PAIN(1-3)OR ELEVATED TEMP Last administered on 07/06/18 21:25; Admin Dose 650 MG; Start 05/31/18 at 13:00 Metoclopramide HCl (Reglan) 5 mg Q6 IV Last administered on 07/10/18 12:13; Admin Dose 5 MG; Start 05/31/18 at 13:00 Collagenase (Santyl) 1 applic DAILY TOP Last administered on 07/10/18 09:11; Admin Dose 1 APPLIC; Start 06/01/18 at 09:00 Clonidine (Catapres) 0.1 mg Q6H PRN PO ELEVATED BLOOD PRESSURE Last ad ministered on 07/09/18 09:08; Admin Dose 0.1 MG; Start 06/03/18 at 03:30 Bumetanide (Bumex) 1 mg BID DIURETICS GTB Last administered on 07/07/18 05:25; Admin Dose 1 MG; Start 06/11/18 at 18:00; Status Hold Collagenase (Santyl) 1 applic PRN PRN TOP WHEN SOILED; Start 06/13/18 at 01:00 Nystatin (Nystatin Powder) 1 applic BID TOP Last administered on 07/10/18 09:12; Admin Dose 1 APPLIC; Start 06/13/18 at 14:00 Epoetin Zen-epbx (RETACRIT(esrd)) 20,000 unit Tu@1700 SC Last administered on 07/07/18 17:03; Admin Dose 20,000 UNIT; Start 06/16/18 at 18:30 Miscellaneous Information 1 ea NOTE XX ; Start 06/26/18 at 08:00 Dicyclomine HCl (Bentyl) 20 mg Q8 PO Last administered on 07/10/18 14:26; Admin Dose 20 MG; Start 06/27/18 at 22:00 Cholestyramine Resin (Questran Light) 4 gm 0600,1200,1800,2300 GTB Last administered on 07/10/18 12:14; Admin Dose 4 GM; Start 06/27/18 at 18:00 Lorazepam (Ativan) 0.5 mg Q4 PRN IV ANXIETY Last administered on 07/03/18 17:32; Admin Dose 0.5 MG; Start 07/01/18 at 14:00 Amiodarone HCl (Cordarone) 200 mg Q8 GTB Last administered on 07/10/18 14:27; Admin Dose 200 MG; Start 07/05/18 at 22:00 Metoprolol Tartrate (Lopressor) 50 mg Q8 GTB Last administered on 07/10/18 14:27; Admin Dose 50 MG; Start 07/05/18 at 22:00 Citric Acid/ Sodium Citrate (Bicitra) 60 ml Q8 PO Last administered on 07/10/18 14:24; Admin Dose 60 ML; Start 07/09/18 at 14:00 Amikacin Sulfate (Amikacin Iv Per Pharmacy) 1 ea NOTE XX ; Start 07/09/18 at 17:30 Linezolid 300 ml @ 300 mls/hr Q12 IVPB Last administered on 07/10/18 09:13; Admin Dose 300 MLS/HR; Start 07/09/18 at 21:00 Vancomycin HCl (Vancomycin Oral Syringe) 125 mg Q6 GTB Last administered on 07/10/18 12:14; Admin Dose 125 MG; Start 07/09/18 at 18:00 Amikacin Sulfate 350 mg/Sodium Chloride 101.4 ml @ 101.4 mls/ hr Q48H IVPB Last administered on 07/09/18 22:06; Admin Dose 101.4 MLS/HR; Start 07/09/18 at 20:30 Metronidazole 100 ml @ 100 mls/hr Q8 IVPB Last administered on 07/10/18 14:22; Admin Dose 100 MLS/HR; Start 07/09/18 at 22:00 QUINTEN UMAÑA MD July 10, 2018 15:17
--- NOTE | 2018-07-10 21:32 | PN ---
DATE: 07/10/2018 SUBJECTIVE: Follow up on respiratory failure, anemia, chronic kidney disease with recent acute on ch ronic kidney disease, diastolic heart failure, chronic obstructive pulmonary disease, paroxysmal atri al fibrillation, dysphagia. The patient is breathing comfortably on vent. The patient is tolerating G-tube after she was started on Reglan, Pepcid and Bentyl. The patient is being followed by Dr. Brandon chan and the patient remains vent dependent and is breathing comfortably, no reported temperature spik e. No obvious bleeding of any site. The patient did receive 2 units of PRBC yesterday. Stool occul t is negative. PHYSICAL EXAMINATION: GENERAL: The patient is lethargic, but arousable. VITAL SIGNS: Temperature 98.5, pulse 70, respirations 20, blood pressure 153/87, O2 saturation 97%, on FIO2 of 37%. The patient is a full vent support. HEENT: Atraumatic, normocephalic. Conjunctivae normal. Nose and ears normal. Oropharynx grossly n egative. NECK: Tracheostomy in place. No mass. CHEST: Diminished air entry at the bases. CARDIOVASCULAR: Regular rhythm. S1, S2 normal, no murmur. ABDOMEN: Soft. G-tube in place, nondistended. EXTREMITIES: Trace edema. NEUROLOGIC: The patient is lethargic but arousable. The patient has weakness in all extremities fro m critical care pulmonary neuropathy. LABORATORY DATA: Done this morning revealed sodium 143, potassium 3.9, BUN 112, up from 109, creatin ine jumped to 2.3 from 2.1. Sputum culture is growing mixed negative organism. Urine is growing gra m-negative rods. Blood culture also grew gram-negative rods 2/2. The patient is currently on vancomycin, Flagyl and IV amikacin as well as IV Zyvox. CBC revealed WBC 13.1, down from 18, hemoglobin went up to 9.5 after she was given 2 units of blood yesterday, lara. IMPRESSION AND PLAN: 1. Gram-negative michael, sepsis. Final identification is pending. The patient is being followed by Dr Shanika Doyle and remains on multiple IV antibiotic including Flagyl, Zyvox, vancomycin and amikacin. 2. Respiratory failure. Continue vent support, wean as tolerated. 3. Acute on chronic kidney disease. 4. Anemia, status post transfusion. No obvious GI source of bleeding. 5. Respiratory failure. Continue vent support and breathing treatment. 6. Paroxysmal atrial fibrillation. The patient remains in sinus rhythm. Continue current dose of a miodarone and metoprolol. 7. Gastroparesis. Continue Reglan. The patient is being followed by Dr. Carolina. 8. Congestive heart failure. Continue hemodialysis to remove fluids. 9. Dysphagia with G-tube. 10. Acute on chronic kidney disease status post hemodialysis. The patient is being followed by Dr. Mckeon from neurology standpoint. The patient's creatinine is slowly creeping, up from 109 now 212 and a creatinine up from 2.1 to 2.3. We will continue to follow. We will repeat followup labs. 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 The patient overall has been declining. We will do followup labs tomorrow. Dictated By: ROLAND GIRON MD AB/NTS Conf#: [id number] DID#: [id number] CC: ROLAND GIRON MD; QUINTEN CAROLINA MD;*EndCC*
[2018-07-11] VITALS (22 sets, daily range): BP systolic 111–164; BP diastolic 58–83; PULSE 72–86; RESP 19–27
[2018-07-11] MEDS: METOCLOPRAMIDE 10 MG INJ IV SCH ×4 (05:22→23:34)
[2018-07-11] MEDS: VANCOMYCIN HCL 250 MG/5ML POSYG GTB SCH ×4 (05:22→23:34)
[2018-07-11] MEDS: Metronidazole 500 MG in NS 100 ML IVPB SCH ×3 (05:22→21:46)
[2018-07-11] MEDS: CITRIC ACID/NA CITRATE 30 ML CUP PO SCH ×3 (05:25→21:48)
[2018-07-11] MEDS: AMIODARONE 200 MG TAB GTB SCH ×3 (05:26→21:48)
[2018-07-11] MEDS: METOPROLOL 50 MG TAB GTB SCH ×3 (05:27→21:47)
[2018-07-11] MEDS: CHOLESTYRAMINE (LIGHT) 4 GM PACKET GTB SCH ×4 (05:27→23:34)
[2018-07-11] MEDS: DICYCLOMINE 10 MG CAP PO SCH ×3 (05:27→21:48)
[2018-07-11] MEDS: COLLAGENASE 5 GM (UD JAR) TOP SCH (09:31)
[2018-07-11] MEDS: FAMOTIDINE 20 MG TAB PEG SCH (09:31)
[2018-07-11] MEDS: ZINC SULFATE 220 MG CAP GTB SCH (09:31)
[2018-07-11] MEDS: MULTIVITAMINS 30 ML CUP GTB SCH (09:31)
[2018-07-11] MEDS: LINEZOLID 600 MG/300 ML (PMX) 300 ML IVPB SCH (09:32)
[2018-07-11] MEDS: NYSTATIN 30 GM POWDER BTL TOP SCH ×2 (09:33→20:18)
[2018-07-11] MEDS: BALSAM PERU/CASTOR OIL 60 GM TUBE TOP SCH ×2 (09:34→20:18)
--- NOTE | 2018-07-11 10:32 | PN ---
DATE: 07/11/2018 SUBJECTIVE: The patient is stable. No events overnight. No fevers, chills, nausea, vomiting. OBJECTIVE: VITAL SIGNS: Blood pressure is 164/77, respirations 25, pulse 79, temperature 98.1. HEENT: Head is normocephalic. NECK: Supple. HEART: Regular rate. LUNGS: Show diminished breath sounds at the base. ABDOMEN: Soft, nontender to palpation without rebound or guarding. EXTREMITIES: Negative for clubbing, cyanosis. Positive edema, worsening. DERMATOLOGIC: No rashes. MUSCULOSKELETAL: No joint effusions. NEUROLOGIC: No change in exam. MEDICATIONS: Reviewed. LABORATORY DATA: Has been reviewed. ASSESSMENT AND PLAN: 1. Nonoliguric acute kidney injury with previous baseline creatinine of 2.0 mg/dL. Etiology of acut e kidney injury was initially due to acute tubular necrosis, necessitating hemodialysis. The patient , however, had renal recovery, dialysis was discontinued. However, the patient's renal function has declined over the past several days. This may be due to nephrotoxicity from antibiotics, recurrent a cute tubular necrosis, possible cardiorenal syndrome, sepsis. The patient did not respond to a fluid challenge. Currently, patient is volume overloaded. Plan is to reintroduce diuretic therapy. Woul d continue current treatment plan, supportive care, renally dose all meds. No immediate need for [place] al replacement therapy. Will continue to monitor closely. 2. Metabolic acidosis secondary to acute kidney injury, chronic kidney disease. Improving. Continu e Bicitra. 3. Hypernatremia. Will increase free water flushes. 4. Hypomagnesemia. Continue to monitor and replete. 5. Mineral bone disorder. Monitor calcium and phosphorus levels. 6. Volume overload. The patient will be started on Bumex 1 mg b.i.d. Monitor closely. 7. Anemia. Monitor hemoglobin and hematocrit levels. 8. Ventilator-dependent respiratory failure. Vent settings have been reviewed. Continue to monitor . 9. Sepsis, status post shock. The patient remains on antibiotic therapy. We spoke with infectious disease about the possibility of changing antibiotics, possibly discontinue amikacin in the setting o f worsening renal failure. We will continue to monitor. 10. Clostridium difficile. The patient is completing a course of vancomycin. 11. Dysphagia. Continue tube feeding 12. Encephalopathy. Continue to monitor. 13. Lower extremity wounds. Continue wound care. Dictated By: JEANA FINE/TABATHA Conf#: [id number] DID#: [id number] CC: ROLAND GIRON MD;*EndCC*
--- NOTE | 2018-07-11 12:52 | CONS ---
Assessment/Plan Assessment/Plan Hospital Course (Demo Recall) # sepsis, leukocytosis, SIRS, pulmonary, cardiac - recurrent leukocytosis due to recurrent UTI, improved - s/p septic shock due to pneumonia and C diff colitis - acute on chronic hypoxic respiratory failure, persistent - s/p reintubation 05/12/2018 - s/p re-do trach on 05/29/2018 - recurrent colonization of the anterior neck wound with ESBL+kleb, MRSA, GBS, corynebacteria on 05/06/2018, s/p meropenem - h/o pneumonia vs. colonization of the airway by pseudomonas and ESBL+klebsiella - h/o possible, recurrent HCAP due to pseudomonas and ESBL+klebsiella - h/o recurrent HCAP due to MRSA and Enterobacter (culture of tracheal aspirate on 07/16/2017 that was collected at [facility]) . Pt took vancomycin and ceftazidime - h/o decannulation prior to admission - h/o tracheostomy on 06/11/2017 - h/o SIRS from UGIB in 2018 - h/o thoracentesis on 07/18/2017, transudative (protein <2, LDH 279) - h/o bleeding from the trach site in 2018 - h/o septic shock due to pneumonia, ARDS, bacteremia, fungemia in 2018 - h/o ARDS in 2018 - h/o smoking - COPD - h/o ILD per medical record - h/o PAF, improved # GI - possible ileus or enterocolitis on CT abd/pel 06/15/2018 - C diff colitis, diagnosed on 05/11/2018. Pt's on pGT vancomycin induction followed by taper (05/11/2018-); Pt previously took IV metronidazole (05/11/2018- 05/29/2018; restart 05/30/2018-06/05/18) too - h/o intermittent diarrhea, Pt had multiple negative C. diff tests at [facility] at OSH in the past; none was positive until 05/11/2018 - dysphagia - h/o PEG placement 06/13/2018 - protein calorie malnutrition - h/o coffee ground emesis/UGIB on 12/23/2017 due to deep ulceration of distal esophagus and gastritis on EGD 12/26/2017. No e/o H. pylori - h/o possible appendicitis on CT on 11/22/2017, Pt took ertapenem (11/24/2017-12/01/2017) - h/o extensive adhesions lower abdominal and pelvis between small bowel to each other and to colon and to abdominal wall, anterior pelvic wall chronic abscess secondary to probably an old perforated diverticulitis, torsion of small bowel around these dense adhesion causing multiple obstructive points - h/o laparoscopic exploration and extensive lysis of adhesions and drainage of anterior pelvic wall abscess 09/16/2017. Cultures were negative, no e/o malignancy. 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 S/p renally dosed amikacin for klebsiella in her urine culture (06/17-06/22/2018) - UTI due to pseudomonas and ESBL+klebsiella on 06/09/2018, Pt took one dose of fosfomycin on 06/10/2018 and cipro 06/12-06/15/2018 - anasarca - started on HD on 05/15/2018, via Juan in R groin - recurrent NATHAN on CKD - 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 Her strain of CRE was sensitive to colistin, Avycaz, and Vabomere but resistant to Zerbaxa (reported on 05/19/2018) - metabolic acidosis - adrenal insufficiency - h/o vaginal bleed in 2018 - h/o colonization of urinary tract by ESBL+klebsiella, VRE - h/o recurrent, symptomatic UTI due to carbapenem-resistant kleb (MDR strain) per urine culture 10/04/17, 10/09/17, 10/21/2017, P took colistin (10/09/2017- 10/15/2017), fosfomycin for carbapenemase-producing klebsiella and VRE on 10/25/2017 and 10/28/2017 - h/o funguria - h/o urinary retention # fungemia, bacteremia 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; Pt declined surgery for MVR per outside medical records; TTE 07/01/17 did not mention any thrombus; s/p voriconazole (05/25/2017-08/01/2017) - h/o bacteremia due to MSSA and proteus s/p ceftriaxone; repeat blood cultures were negative on 06/14/2017 # musculoskeletal and dermatological - L hand pain - dry skin - chronic wound of LLE - h/o infection of wound of LLE - h/o debridement of wound of LLE on 08/06/2017 - h/o recurrent herpes labialis, Pt took acyclovir, valacyclovir - h/o Osler's nodes (eschar) of R toes with erythematous skin; desquamation of the skin and open lacerations on R plantar foot. improved. Probable manifestation of endocarditis. Pt declined MRI on 08/06/2017 - h/o infection of R toes due to pseudomonas. coagulase negative Staph likely a colonizer - h/o intertrigo of the groin, resolved with nystatin powder - h/o scabies, locally crusted lesion over L scapula, s/p permethrin cream and pGT ivermectin on 08/11/2017, 08/12/2017, 08/19/2017. Repeat skin scraping on 08/21/2017 was negative for scabies # psych, neuro - decreased hearing b/l - s/p acute toxic metabolic encephalopathy - h/o critical illness polyneuropathy - anxiety/depression, bipolar d/o, seen by Psychiatry in the past - chronic pain syndrome - h/o medical non-compliance: she would refuse her medications, treatment and straight catheterization in 2018 # hematological, vascular - chronic anemia requiring blood transfusion intermittently - macrocytic anemia - aneurysmal dilatation of the distal aorta visualized on CT 06/15/2018 - PVD Recommendations: - gtube site cx - Continue Vanco pGT (07/09/18/ - ) and flagyl IV (07/09/18 - ) - Continue Amikacin IV (renal dosing) - may need to consider addition of colistin if persistently bacteremic although her renal function makes this very difficult - monitor crcl closely - repeat bcxs today ; ordered - consider picc line removal and echocardiogram - Ordered: Repeat blood cultures x2 15 min apart - 1 set from peripheral and 1 set from PICC - F/u blood cultures 07/09/18 GNR sputum and bcx - consider CT chest/abdomen pelvis if to help delineate source. - Trend WBC - S/p renally dosed amikacin for klebsiella in her urine culture (06/17-06/22/2018) I directed care to deployment engineer yesterday via [employer] messaging. Consultation Date/Type/Reason Admit Date/Time May 06, 2018 at 17:38 Initial Consult Date 05/10/18 Type of Consult ID Requesting Provider: ROLAND GIRON MD Date/Time of Note DATE: 07/11/18 TIME: 12:48 24 HR Interval Summary Free Text/Dictation patient appears unhappy / uncomfortable Exam/Review of Systems Exam Vitals Vital Signs Date Temp Pulse Resp B/P (MAP) Pulse Ox O2 O2 Flow FiO2 Time Delivery Rate 07/11/18 98.9 75 24 111/64 97 Mechanical 11:30 (80) Ventilator 07/11/18 30 11:23 Intake and Output 07/10/18 07/10/18 07/11/18 1515:00 23:00 07:00 IntakeIntake Total 630 ml 780 ml OutputOutput Total 500 ml 600 ml BalanceBalance 130 ml 180 ml Constitutional: alert, non-verbal Psych: no complaints Head: normocephalic, atraumatic Eyes: EOMI Respiratory: clear to auscultation Cardiovascular: regular rate and rhythm Gastrointestinal: soft, other (g tube site appears mildly inflamed with discharge) Neurological: [employer] SECRETARY II-XII intact Results Result Diagram: 07/11/18 0640 07/11/18 0640 Results 24hrs Laboratory Tests Test 07/11/18 06:40 White Blood Count 14.3 H Red Blood Count 3.04 L Hemoglobin 9.8 L Hematocrit 31.2 L Mean Corpuscular Volume 102.6 H Mean Corpuscular Hemoglobin 32.2 Mean Corpuscular Hemoglobin Concent 31.4 L Red Cell Distribution Width 23.7 H Platelet Count 222 Mean Platelet Volume 10.3 Immature Granulocytes % 1.000 H Neutrophils % 88.7 H Lymphocytes % 3.9 L Monocytes % 5.6 Eosinophils % 0.6 Basophils % 0.2 Nucleated Red Blood Cells % 0.4 H Immature Granulocytes # 0.140 H Neutrophils # 12.6 H Lymphocytes # 0.6 L Monocytes # 0.8 Eosinophils # 0.1 Basophils # 0.0 Nucleated Red Blood Cells # 0.1 H Sodium Level 146 H Potassium Level 3.6 Chloride Level 112 H Carbon Dioxide Level 18 L Anion Gap 16 H Blood Urea Nitrogen 115 H Creatinine 2.24 H Est Glomerular Filtrat Rate mL/min Glucose Level 134 Calcium Level 9.1 Phosphorus Level 3.0 Magnesium Level 1.8 Medications Medication Current Medications IV Flush (NS 10 ml) 10 ml PRN IV ; Start 05/06/18 at 20:30 Zinc Sulfate (Zinc Sulfate) 220 mg DAILY GTB Last administered on 07/11/18 09:31; Admin Dose 220 MG; Start 05/07/18 at 09:00 Ondansetron HCl (Zofran Tab) 4 mg Q6H PRN GTB NAUSEA AND/OR VOMITING Last administered on 05/31/18 16:47; Admin Dose 4 MG; Start 05/07/18 at 00:15 Multivitamins (Multivitamin) 30 ml DAILY GTB Last administered on 07/11/18 09:31; Admin Dose 30 ML; Start 05/07/18 at 09:00 Misc[facility] This patient goldman... PRN PRN XX WOUND CARE; Start 05/09/18 at 17:00 Famotidine (Pepcid) 20 mg DAILY PEG Last administered on 07/11/18 09:31; Admin Dose 20 MG; Start 05/23/18 at 09:00 Morphine Sulfate (morphine) 6 mg Q4H PRN PEG SEVERE PAIN LEVEL 7-10 Last administered on 07/08/18 09:45; Admin Dose 6 MG; Start 05/22/18 at 17:00 Acetaminophen (Tylenol Tab) 650 mg Q4H PRN PO MILD PAIN(1-3)OR ELEVATED TEMP Last administered on 07/06/18 21:25; Admin Dose 650 MG; Start 05/31/18 at 13:00 Metoclopramide HCl (Reglan) 5 mg Q6 IV Last administered on 07/11/18 11:41; Admin Dose 5 MG; Start 05/31/18 at 13:00 Collagenase (Santyl) 1 applic DAILY TOP Last administered on 07/11/18 09:31; Admin Dose 1 APPLIC; Start 06/01/18 at 09:00 Clonidine (Catapres) 0.1 mg Q6H PRN PO ELEVATED BLOOD PRESSURE Last administered on 07/09/18 09:08; Admin Dose 0.1 MG; Start 06/03/18 at 03:30 Bumetanide (Bumex) 1 mg BID DIURETICS GTB Last administered on 07/07/18 05:25; Admin Dose 1 MG; Start 06/11/18 at 18:00 Collagenase (Santyl) 1 applic PRN PRN TOP WHEN SOILED; Start 06/13/18 at 01:00 Nystatin (Nystatin Powder) 1 applic BID TOP Last administered on 07/11/18 09:33; Admin Dose 1 APPLIC; Start 06/13/18 at 14:00 Epoetin Zen-epbx (RETACRIT(esrd)) 20,000 unit Tu@1700 SC Last administered on 07/07/18 17:03; Admin Dose 20,000 UNIT; Start 06/16/18 at 18:30 Miscellaneous Information 1 ea NOTE XX ; Start 06/26/18 at 08:00 Dicyclomine HCl (Bentyl) 20 mg Q8 PO Last administered on 07/11/18 05:27; Admin Dose 20 MG; Start 06/27/18 at 22:00 Cholestyramine Resin (Questran Light) 4 gm 0600,1200,1800,2300 GTB Last administered on 07/11/18 11:41; Admin Dose 4 GM; Start 06/27/18 at 18:00 Lorazepam (Ativan) 0.5 mg Q4 PRN IV ANXIETY Last administered on 07/03/18 17:32; Admin Dose 0.5 MG; Start 07/01/18 at 14:00 Amiodarone HCl (Cordarone) 200 mg Q8 GTB Last administered on 07/11/18 05:26; Admin Dose 200 MG; Start 07/05/18 at 22:00 Metoprolol Tartrate (Lopressor) 50 mg Q8 GTB Last administered on 07/11/18 05:27; Admin Dose 50 MG; Start 07/05/18 at 22:00 Citric Acid/ Sodium Citrate (Bicitra) 60 ml Q8 PO Last administered on 07/11/18 05:25; Admin Dose 60 ML; Start 07/09/18 at 14:00 Amikacin Sulfate (Amikacin Iv Per Pharmacy) 1 ea NOTE XX ; Start 07/09/18 at 17:30 Vancomycin HCl (Vancomycin Oral Syringe) 125 mg Q6 GTB Last administered on 07/11/18 11:41; Admin Dose 125 MG; Start 07/09/18 at 18:00 Amikacin Sulfate 350 mg/Sodium Chloride 101.4 ml @ 101.4 mls/ hr Q48H IVPB Last administered on 07/09/18 22:06; Admin Dose 101.4 MLS/HR; Start 07/09/18 at 20:30 Metronidazole 100 ml @ 100 mls/hr Q8 IVPB Last administered on 07/11/18 05:22; Admin Dose 100 MLS/HR; Start 07/09/18 at 22:00 MANN VALDEZ MD July 11, 2018 12:52
[2018-07-11] MEDS: BUMETANIDE 1 MG TAB GTB SCH (17:44)
[2018-07-11] MEDS: AMIKACIN 350 MG in SOD CHLORIDE 0.9% 100 ML IVPB SCH (20:18)
--- NOTE | 2018-07-11 21:02 | PN ---
Date/Time of Note Date/Time of Note DATE: 07/11/18 TIME: 21:01 Assessment/Plan VTE Pro[place]axis [place] [facility]: 10 [place]CD applied [place] [facility] Yes SCD contraindicated: other Pharmacological prophylaxis: other Pharm contraindication: other Lines/Catheters IV [facility] Type (from [facility] PICC Line Central line still needed: Yes Urinary Cath still in place: Yes Reason Cath still needed: urinary retention Assessment/Plan Assessment/Plan 1. Gram-negative michael, sepsis. Final identification is pending. The patient is being followed by Dr. Doyle and remains on multiple IV antibiotic including Flagyl, Zyvox, vancomycin and amikacin. 2. Respiratory failure. Continue vent support, wean as tolerated. 3. Acute on chronic kidney disease. 4. Anemia, status post transfusion. No obvious GI source of bleeding. 5. Respiratory failure. Continue vent support and breathing treatment. 6. Paroxysmal atrial fibrillation. The patient remains in sinus rhythm. Continue current dose of amiodarone and metoprolol. 7. Gastroparesis. Continue Reglan. The patient is being followed by Dr. Carolina. 8. Congestive heart failure. Continue hemodialysis to remove fluids. 9. Dysphagia with G-tube. 10. Acute on chronic kidney disease status post hemodialysis. The patient is being followed by Dr. Mckeon from neurology standpoint. The patient's creatinine is slowly creeping, up from 109 now 212 and a creatinine up from 2.1 to 2.3. We will continue to follow. We will repeat followup labs. 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 The patient overall has been declining. We will do followup labs tomorrow. Patient is seen on collaboration with Dr GIRON Result Diagram: 07/11/18 0640 07/11/18 0640 Results 24hrs Laboratory Tests Test 07/11/18 06:40 White Blood Count 14.3 H Red Blood Count 3.04 L Hemoglobin 9.8 L Hematocrit 31.2 L Mean Corpuscular Volume 102.6 H Mean Corpuscular Hemoglobin 32.2 Mean Corpuscular Hemoglobin Concent 31.4 L Red Cell Distribution Width 23.7 H Platelet Count 222 Mean Platelet Volume 10.3 Immature Granulocytes % 1.000 H Neutrophils % 88.7 H Lymphocytes % 3.9 L Monocytes % 5.6 Eosinophils % 0.6 Basophils % 0.2 Nucleated Red Blood Cells % 0.4 H Immature Granulocytes # 0.140 H Neutrophils # 12.6 H Lymphocytes # 0.6 L Monocytes # 0.8 Eosinophils # 0.1 Basophils # 0.0 Nucleated Red Blood Cells # 0.1 H Sodium Level 146 H Potassium Level 3.6 Chloride Level 112 H Carbon Dioxide Level 18 L Anion Gap 16 H Blood Urea Nitrogen 115 H Creatinine 2.24 H Est Glomerular Filtrat Rate mL/min Glucose Level 134 Calcium Level 9.1 Phosphorus Level 3.0 Magnesium Level 1.8 Subjective 24 Hr Interval Summary Free Text/Dictation Leukocytosis - afebrile - Hgb stable - Na slightly up - Nephro follows no evens reported last night per staff Subjective hx not possible: pt non-verbal Constitutional: requiring O2 Exam/Review of Systems Exam Vitals Vital Signs Date Temp Pulse Resp B/P (MAP) Pulse Ox O2 O2 Flow FiO2 Time Delivery Rate 07/11/18 98.9 79 22 141/67 98 Mechanical 20:00 (91) Ventilator 07/11/18 30 17:11 Intake and Output 07/10/18 07/10/18 07/11/18 1515:00 23:00 07:00 IntakeIntake Total 630 ml 780 ml OutputOutput Total 500 ml 600 ml BalanceBalance 130 ml 180 ml Constitutional: alert, non-verbal, frail Psych: nl mood/affect Eyes: nl lids, nl sclera ENMT: nl external ears & nose Neck: non-tender, other (trach inatct) Respiratory: diminished breath sounds (bilaterally at bases) Cardiovascular: nl pulses, other (s1s2) Gastrointestinal: soft, other (gt intact) Musculoskeletal: muscle weakness Extremities: normal pulses Neurological: confused Skin: other Results Results 24hrs Laboratory Tests Test 07/11/18 06:40 White Blood Count 14.3 H Red Blood Count 3.04 L Hemoglobin 9.8 L Hematocrit 31.2 L Mean Corpuscular Volume 102.6 H Mean Corpuscular Hemoglobin 32.2 Mean Corpuscular Hemoglobin Concent 31.4 L Red Cell Distribution Width 23.7 H Platelet Count 222 Mean Platelet Volume 10.3 Immature Granulocytes % 1.000 H Neutrophils % 88.7 H Lymphocytes % 3.9 L Monocytes % 5.6 Eosinophils % 0.6 Basophils % 0.2 Nucleated Red Blood Cells % 0.4 H Immature Granulocytes # 0.140 H Neutrophils # 12.6 H Lymphocytes # 0.6 L Monocytes # 0.8 Eosinophils # 0.1 Basophils # 0.0 Nucleated Red Blood Cells # 0.1 H Sodium Level 146 H Potassium Level 3.6 Chloride Level 112 H Carbon Dioxide Level 18 L Anion Gap 16 H Blood Urea Nitrogen 115 H Creatinine 2.24 H Est Glomerular Filtrat Rate mL/min Glucose Level 134 Calcium Level 9.1 Phosphorus Level 3.0 Magnesium Level 1.8 Medications Medication Current Medications IV Flush (NS 10 ml) 10 ml PRN IV ; Start 05/06/18 at 20:30 Zinc Sulfate (Zinc Sulfate) 220 mg DAILY GTB Last administered on 07/11/18 09:31; Start 05/07/18 at 09:00 Ondansetron HCl (Zofran Tab) 4 mg Q6H PRN GTB NAUSEA AND/OR VOMITING Last administered on 05/31/18 16:47; Start 05/07/18 at 00:15 Multivitamins (Multivitamin) 30 ml DAILY GTB Last administered on 07/11/18 09:31; Start 05/07/18 at 09:00 Miscellaneous Information (Pending Santyl Order For Wound Care) This patient goldman... PRN PRN XX WOUND CARE; Start 05/09/18 at 17:00 Famotidine (Pepcid) 20 mg DAILY PEG Last administered on 07/11/18 09:31; Start 05/23/18 at 09:00 Morphine Sulfate (morphine) 6 mg Q4H PRN PEG SEVERE PAIN LEVEL 7-10 Last administered on 07/08/18 09:45; Start 05/22/18 at 17:00 Acetaminophen (Tylenol Tab) 650 mg Q4H PRN PO MILD PAIN(1-3)OR ELEVATED TEMP Last administered on 07/06/18 21:25; Start 05/31/18 at 13:00 Metoclopramide HCl (Reglan) 5 mg Q6 IV Last administered on 07/11/18 17:43; Start 05/31/18 at 13:00 Collagenase (Santyl) 1 applic DAILY TOP Last administered on 07/11/18 09:31; Start 06/01/18 at 09:00 Clonidine (Catapres) 0.1 mg Q6H PRN PO ELEVATED BLOOD PRESSURE Last administered on 07/09/18 09:08; Start 06/03/18 at 03:30 Bumetanide (Bumex) 1 mg BID DIURETICS GTB Last administered on 07/11/18 17:44; Start 06/11/18 at 18:00 Collagenase (Santyl) 1 applic PRN PRN TOP WHEN SOILED; Start 06/13/18 at 01:00 Nystatin (Nystatin Powder) 1 applic BID TOP Last administered on 07/11/18 20:18; Start 06/13/18 at 14:00 Epoetin Zen-epbx (RETACRIT(esrd)) 20,000 unit Tu@1700 SC Last administered on 07/07/18 17:03; Start 06/16/18 at 18:30 Miscellaneous Information 1 ea NOTE XX ; Start 06/26/18 at 08:00 Dicyclomine HCl (Bentyl) 20 mg Q8 PO Last administered on 07/11/18 13:44; Start 06/27/18 at 22:00 Cholestyramine Resin (Questran Light) 4 gm 0600,1200,1800,2300 GTB Last administered on 07/11/18 17:43; Start 06/27/18 at 18:00 Lorazepam (Ativan) 0.5 mg Q4 PRN IV ANXIETY Last administered on 07/03/18 17:32; Start 07/01/18 at 14:00 Amiodarone HCl (Cordarone) 200 mg Q8 GTB Last administered on 07/11/18 13:46; Start 07/05/18 at 22:00 Metoprolol Tartrate (Lopressor) 50 mg Q8 GTB Last administered on 07/11/18 13:47; Start 07/05/18 at 22:00 Citric Acid/ Sodium Citrate (Bicitra) 60 ml Q8 PO Last administered on 07/11/18 13:44; Start 07/09/18 at 14:00 Amikacin Sulfate (Amikacin Iv Per Pharmacy) 1 ea NOTE XX ; Start 07/09/18 at 17:30 Vancomycin HCl (Vancomycin Oral Syringe) 125 mg Q6 GTB Last administered on 07/11/18 17:43; Start 07/09/18 at 18:00 Amikacin Sulfate 350 mg/Sodium Chloride 101.4 ml @ 101.4 mls/ hr Q48H IVPB Last administered on 07/11/18at 20:18; Start 07/09/18 at 20:30 Metronidazole 100 ml @ 100 mls/hr Q8 IVPB Last administered on 07/11/18at 13:47; Start 07/09/18 at 22:00 KERON MORAN July 11, 2018 21:02
[2018-07-12] VITALS (18 sets, daily range): BP systolic 130–150; BP diastolic 61–79; PULSE 70–100; RESP 19–29
[2018-07-12] MEDS: Metronidazole 500 MG in NS 100 ML IVPB SCH ×3 (05:22→21:35)
[2018-07-12] MEDS: DICYCLOMINE 10 MG CAP PO SCH ×3 (05:22→21:35)
[2018-07-12] MEDS: CITRIC ACID/NA CITRATE 30 ML CUP PO SCH ×3 (05:22→21:36)
[2018-07-12] MEDS: VANCOMYCIN HCL 250 MG/5ML POSYG GTB SCH ×4 (05:22→23:30)
[2018-07-12] MEDS: AMIODARONE 200 MG TAB GTB SCH ×3 (05:23→21:36)
[2018-07-12] MEDS: METOPROLOL 50 MG TAB GTB SCH ×3 (05:23→21:36)
[2018-07-12] MEDS: BUMETANIDE 1 MG TAB GTB SCH (05:23)
[2018-07-12] MEDS: METOCLOPRAMIDE 10 MG INJ IV SCH ×4 (05:24→23:30)
[2018-07-12] MEDS: CHOLESTYRAMINE (LIGHT) 4 GM PACKET GTB SCH ×4 (05:24→22:36)
[2018-07-12] MEDS ORDERED: MAGNESIUM SULFATE 2 GM/50 ML 50 ML IVPB ONE (09:00)
[2018-07-12] MEDS ORDERED: POTASSIUM CHLORIDE 20 MEQ POWDER FOR ORAL SOLN GTB ONE (09:00)
--- NOTE | 2018-07-12 09:42 | CONS ---
Assessment/Plan Assessment/Plan Hospital Course (Demo Recall) # sepsis, leukocytosis, SIRS, pulmonary, cardiac - recurrent leukocytosis due to recurrent UTI, improved - s/p septic shock due to pneumonia and C diff colitis - acute on chronic hypoxic respiratory failure, persistent - s/p reintubation 05/12/2018 - s/p re-do trach on 05/29/2018 - recurrent colonization of the anterior neck wound with ESBL+kleb, MRSA, GBS, corynebacteria on 05/06/2018, s/p meropenem - h/o pneumonia vs. colonization of the airway by pseudomonas and ESBL+klebsiella - h/o possible, recurrent HCAP due to pseudomonas and ESBL+klebsiella - h/o recurrent HCAP due to MRSA and Enterobacter (culture of tracheal aspirate on 07/16/2017 that was collected at [facility]) . Pt took vancomycin and ceftazidime - h/o decannulation prior to admission - h/o tracheostomy on 06/11/2017 - h/o SIRS from UGIB in 2018 - h/o thoracentesis on 07/18/2017, transudative (protein <2, LDH 279) - h/o bleeding from the trach site in 2018 - h/o septic shock due to pneumonia, ARDS, bacteremia, fungemia in 2018 - h/o ARDS in 2018 - h/o smoking - COPD - h/o ILD per medical record - h/o PAF, improved # GI - possible ileus or enterocolitis on CT abd/pel 06/15/2018 - C diff colitis, diagnosed on 05/11/2018. Pt's on pGT vancomycin induction followed by taper (05/11/2018-); Pt previously took IV metronidazole (05/11/2018- 05/29/2018; restart 05/30/2018-06/05/18) too - h/o intermittent diarrhea, Pt had multiple negative C. diff tests at [facility] at OSH in the past; none was positive until 05/11/2018 - dysphagia - h/o PEG placement 06/13/2018 - protein calorie malnutrition - h/o coffee ground emesis/UGIB on 12/23/2017 due to deep ulceration of distal esophagus and gastritis on EGD 12/26/2017. No e/o H. pylori - h/o possible appendicitis on CT on 11/22/2017, Pt took ertapenem (11/24/2017-12/01/2017) - h/o extensive adhesions lower abdominal and pelvis between small bowel to each other and to colon and to abdominal wall, anterior pelvic wall chronic abscess secondary to probably an old perforated diverticulitis, torsion of small bowel around these dense adhesion causing multiple obstructive points - h/o laparoscopic exploration and extensive lysis of adhesions and drainage of anterior pelvic wall abscess 09/16/2017. Cultures were negative, no e/o malignancy. 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 S/p renally dosed amikacin for klebsiella in her urine culture (06/17-06/22/2018) - UTI due to pseudomonas and ESBL+klebsiella on 06/09/2018, Pt took one dose of fosfomycin on 06/10/2018 and cipro 06/12-06/15/2018 - anasarca - started on HD on 05/15/2018, via Juan in R groin - recurrent NATHAN on CKD - 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 Her strain of CRE was sensitive to colistin, Avycaz, and Vabomere but resistant to Zerbaxa (reported on 05/19/2018) - metabolic acidosis - adrenal insufficiency - h/o vaginal bleed in 2018 - h/o colonization of urinary tract by ESBL+klebsiella, VRE - h/o recurrent, symptomatic UTI due to carbapenem-resistant kleb (MDR strain) per urine culture 10/04/17, 10/09/17, 10/21/2017, P took colistin (10/09/2017- 10/15/2017), fosfomycin for carbapenemase-producing klebsiella and VRE on 10/25/2017 and 10/28/2017 - h/o funguria - h/o urinary retention # fungemia, bacteremia - Bacteremia d/t pseudomonas aeruginosa 07/09/18 and 07/10/18, repeats 07/11/18 growing GNR. 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; Pt declined surgery for MVR per outside medical records; TTE 07/01/17 did not me ntion any thrombus; s/p voriconazole (05/25/2017-08/01/2017) - h/o bacteremia due to MSSA and proteus s/p ceftriaxone; repeat blood cultures were negative on 06/14/2017 # musculoskeletal and dermatological - L hand pain - dry skin - chronic wound of LLE - h/o infection of wound of LLE - h/o debridement of wound of LLE on 08/06/2017 - h/o recurrent herpes labialis, Pt took acyclovir, valacyclovir - h/o Osler's nodes (eschar) of R toes with erythematous skin; desquamation of the skin and open lacerations on R plantar foot. improved. Probable manifestation of endocarditis. Pt declined MRI on 08/06/2017 - h/o infection of R toes due to pseudomonas. coagulase negative Staph likely a colonizer - h/o intertrigo of the groin, resolved with nystatin powder - h/o scabies, locally crusted lesion over L scapula, s/p permethrin cream and pGT ivermectin on 08/11/2017, 08/12/2017, 08/19/2017. Repeat skin scraping on 08/21/2017 was negative for scabies # psych, neuro - decreased hearing b/l - s/p acute toxic metabolic encephalopathy - h/o critical illness polyneuropathy - anxiety/depression, bipolar d/o, seen by Psychiatry in the past - chronic pain syndrome - h/o medical non-compliance: she would refuse her medications, treatment and straight catheterization in 2018 # hematological, vascular - chronic anemia requiring blood transfusion intermittently - macrocytic anemia - aneurysmal dilatation of the distal aorta visualized on CT 06/15/2018 - PVD Recommendations: - Continue Vanco pGT (07/09/18/ - ) and flagyl IV (07/09/18 - ) - Continue Amikacin IV (renal dosing) - may need to consider addition of colistin if persistently bacteremic although her renal function makes this very difficult - monitor crcl closely - Consider picc line removal and echocardiogram - if picc is removed, send tip for culture - Ordered: Repeat blood cultures x2 - 1 set from peripheral and 1 set from PICC - F/u blood cultures 07/11/18 GNR and GT wound culture (in process) - Consider CT chest/abdomen pelvis if to help delineate source. - Trend WBC - S/p renally dosed amikacin for klebsiella in her urine culture (06/17-06/22/2018) Plan was d/w patient's JAYANT Rosas verbally and via telemFangcang, and with Dr. Doyle via Fridge messaging. Consultation Date/Type/Reason Admit Date/Time May 06, 2018 at 17:38 Initial Consult Date 05/07/18 Type of Consult ID Requesting Provider: ROLAND GIRON MD Date/Time of Note DATE: 07/12/18 TIME: 09:39 24 HR Interval Summary Free Text/Dictation D/w JAYANT Rosas, patient has remained afebrile, wbc 14.2. Blood cultures from yesterday again growing GNR. GT site wound culture was sent last night. We discussed the length of picc line having been in and if a peripheral can be placed and picc removed this may be optimal. Also we recommend CT chest/abd/pelvis to help delineate source of infection. The patient stared at me and didn't answer any questions today. Exam/Review of Systems Exam Vitals Vital Signs Date Temp Pulse Resp B/P (MAP) Pulse Ox O2 O2 Flow FiO2 Time Delivery Rate 07/12/18 74 09:04 07/12/18 98.2 29 136/61 97 Mechanical 07:50 (86) Ventilator 07/11/18 30 23:42 Allergies Coded Allergies shellfish derived (Unverified Allergy, Unknown, 05/06/18) Intake and Output 5/07/11/18 07/12/18 1515:00 23:00 07:00 IntakeIntake Total 730 ml 780 ml OutputOutput Total 900 ml 650 ml BalanceBalance -170 ml 130 ml Exam Constitutional: alert, well developed, non-verbal, frail, obese, other (chronically debilitated) Head: normocephalic, atraumatic Eyes: nl conjunctiva, nl lids, nl sclera ENMT: nl external ears & nose, nl nasal mucosa & septum Neck: supple, non-tender, other (on vent via trach, trach midline, site is c/d/i) Respiratory: normal air movement, diminished breath sounds (bilaterally, anteriorly); No wheezing Cardiovascular: regular rate and rhythm, nl pulses Gastrointestinal: soft, non-tender, bowel sounds (normoactive), other (PEG site with a small amt of beige drainage noted on dressing, slight erythema around the perimeter of the peg site noted, connected to TF); No distended, No firm Genitourinary - Female: other (F/c draining yellow urine. +Intertrigo of groin) Musculoskeletal: muscle weakness, other (julia foot drop) Extremities: normal pulses, edema (BUE, BLE); No tenderness Neurological: other (alert, follows simple commands, able to questions by mouthing words and shaking head yes or no) Skin: nl turgor, other (Reviewed nsg notes/photos. LLE dressing c/d/i) Results Result Diagram: 07/12/18 0631 07/12/18 0631 Results 24hrs Laboratory Tests Test 07/12/18 06:31 White Blood Count 14.2 H Red Blood Count 2.99 L Hemoglobin 9.6 L Hematocrit 30.7 L Mean Corpuscular Volume 102.7 H Mean Corpuscular Hemoglobin 32.1 Mean Corpuscular Hemoglobin Concent 31.3 L Red Cell Distribution Width 23.4 H Platelet Count 228 Mean Platelet Volume 9.9 Immature Granulocytes % 0.800 H Neutrophils % 87.7 H Lymphocytes % 5.1 L Monocytes % 5.4 Eosinophils % 0.7 Basophils % 0.3 Nucleated Red Blood Cells % 0.1 H Immature Granulocytes # 0.120 H Neutrophils # 12.4 H Lymphocytes # 0.7 L Monocytes # 0.8 Eosinophils # 0.1 Basophils # 0.0 Nucleated Red Blood Cells # 0.0 Sodium Level 150 H Potassium Level 3.4 L Chloride Level 115 H Carbon Dioxide Level 19 L Anion Gap 16 H Blood Urea Nitrogen 116 H Creatinine 2.36 H Est Glomerular Filtrat Rate mL/min Glucose Level 122 Calcium Level 9.2 Phosphorus Level 2.8 Magnesium Level 1.6 L Medications Medication Current Medications IV Flush (NS 10 ml) 10 ml PRN IV ; Start 05/06/18 at 20:30 Zinc Sulfate (Zinc Sulfate) 220 mg DAILY GTB Last administered on 07/11/18 09:31; Admin Dose 220 MG; Start 05/07/18 at 09:00 Ondansetron HCl (Zofran Tab) 4 mg Q6H PRN GTB NAUSEA AND/OR VOMITING Last administered on 05/31/18 16:47; Admin Dose 4 MG; Start 05/07/18 at 00:15 Multivitamins (Multivitamin) 30 ml DAILY GTB Last administered on 07/11/18 09:31; Admin Dose 30 ML; Start 05/07/18 at 09:00 Miscellaneous Information (Pending Santyl Order For Wound Care) This patient goldman... PRN PRN XX WOUND CARE; Start 05/09/18 at 17:00 Famotidine (Pepcid) 20 mg DAILY PEG Last administered on 07/11/18 09:31; Admin Dose 20 MG; Start 05/23/18 at 09:00 Morphine Sulfate (morphine) 6 mg Q4H PRN PEG SEVERE PAIN LEVEL 7-10 Last administered on 07/08/18 09:45; Admin Dose 6 MG; Start 05/22/18 at 17:00 Acetaminophen (Tylenol Tab) 650 mg Q4H PRN PO MILD PAIN(1-3)OR ELEVATED TEMP Last administered on 07/06/18 21:25; Admin Dose 650 MG; Start 05/31/18 at 13:00 Metoclopramide HCl (Reglan) 5 mg Q6 IV Last administered on 07/12/18 05:24; Admin Dose 5 MG; Start 05/31/18 at 13:00 Collagenase (Santyl) 1 applic DAILY TOP Last administered on 07/11/18 09:31; Admin Dose 1 APPLIC; Start 06/01/18 at 09:00 Clonidine (Catapres) 0.1 mg Q6H PRN PO ELEVATED BLOOD PRESSURE Last admini stered on 07/09/18 09:08; Admin Dose 0.1 MG; Start 06/03/18 at 03:30 Bumetanide (Bumex) 1 mg BID DIURETICS GTB Last administered on 07/12/18 05:23; Admin Dose 1 MG; Start 06/11/18 at 18:00; Status Hold Collagenase (Santyl) 1 applic PRN PRN TOP WHEN SOILED; Start 06/13/18 at 01:00 Nystatin (Nystatin Powder) 1 applic BID TOP Last administered on 07/11/18 20:18; Admin Dose 1 APPLIC; Start 06/13/18 at 14:00 Epoetin Zen-epbx (RETACRIT(esrd)) 20,000 unit Tu@1700 SC Last administered on 07/07/18 17:03; Admin Dose 20,000 UNIT; Start 06/16/18 at 18:30 Miscellaneous Information 1 ea NOTE XX ; Start 06/26/18 at 08:00 Dicyclomine HCl (Bentyl) 20 mg Q8 PO Last administered on 07/12/18 05:22; Admin Dose 20 MG; Start 06/27/18 at 22:00 Cholestyramine Resin (Questran Light) 4 gm 0600,1200,1800,2300 GTB Last administered on 07/12/18 05:24; Admin Dose 4 GM; Start 06/27/18 at 18:00 Lorazepam (Ativan) 0.5 mg Q4 PRN IV ANXIETY Last administered on 07/03/18 17:32; Admin Dose 0.5 MG; Start 07/01/18 at 14:00 Amiodarone HCl (Cordarone) 200 mg Q8 GTB Last administered on 07/12/18 05:23; Admin Dose 200 MG; Start 07/05/18 at 22:00 Metoprolol Tartrate (Lopressor) 50 mg Q8 GTB Last administered on 07/12/18 05:23; Admin Dose 50 MG; Start 07/05/18 at 22:00 Citric Acid/ Sodium Citrate (Bicitra) 60 ml Q8 PO Last administered on 07/12/18 05:22; Admin Dose 60 ML; Start 07/09/18 at 14:00 Amikacin Sulfate (Amikacin Iv Per Pharmacy) 1 ea NOTE XX ; Start 07/09/18 at 17:30 Vancomycin HCl (Vancomycin Oral Syringe) 125 mg Q6 GTB Last administered on 07/12/18at 05:22; Admin Dose 125 MG; Start 07/09/18 at 18:00 Amikacin Sulfate 350 mg/Sodium Chloride 101.4 ml @ 101.4 mls/ hr Q48H IVPB Last administered on 07/11/18at 20:18; Admin Dose 101.4 MLS/HR; Start 07/09/18 at 20:30 Metronidazole 100 ml @ 100 mls/hr Q8 IVPB Last administered on 07/12/18at 05:22; Admin Dose 100 MLS/HR; Start 07/09/18 at 22:00 Dextrose 1,000 ml @ 50 mls/hr Q20H IV ; Start 07/12/18 at 09:00 Magnesium Sulfate 50 ml @ 25 mls/hr ONCE ONCE IVPB ; Start 07/12/18 at 09:00; Stop 07/12/18 at 10:59 KENA MÉNDEZ NP July 12, 2018 09:42
[2018-07-12] MEDS: DEXTROSE 5% 1,000 ML IV SCH (09:48)
[2018-07-12] MEDS: ZINC SULFATE 220 MG CAP GTB SCH (09:54)
[2018-07-12] MEDS: MULTIVITAMINS 30 ML CUP GTB SCH (09:54)
[2018-07-12] MEDS: FAMOTIDINE 20 MG TAB PEG SCH (09:54)
[2018-07-12] MEDS: NYSTATIN 30 GM POWDER BTL TOP SCH ×2 (09:55→21:35)
[2018-07-12] MEDS: COLLAGENASE 5 GM (UD JAR) TOP SCH (09:55)
[2018-07-12] MEDS: BALSAM PERU/CASTOR OIL 60 GM TUBE TOP SCH ×2 (09:55→21:35)
--- NOTE | 2018-07-12 11:55 | PN ---
DATE: 07/12/2018 SUBJECTIVE: The patient is stable. No events overnight. OBJECTIVE: VITAL SIGNS: Blood pressure is 136/61, pulse 84, respirations 29, temperature 98.2. HEENT: Head is normocephalic. NECK: Supple. HEART: Regular rate. LUNGS: Show diminished breath sounds at the base. ABDOMEN: Soft, nontender to palpation without rebound or guarding. EXTREMITIES: Negative for clubbing, cyanosis. Positive edema. DERMATOLOGIC: No rashes. MUSCULOSKELETAL: No joint effusion. NEUROLOGIC: No change in exam. MEDICATIONS: Reviewed. LABORATORY DATA: From 07/12/2018 was reviewed. ASSESSMENT AND PLAN: 1. Nonoliguric acute kidney injury with previous baseline creatinine around 2.0 mg/dL. Etiology of acute kidney injury was secondary to acute tubular necrosis, necessitating hemodialysis. The patient , however, had renal recovery, dialysis was discontinued. The patient's renal function; however, has declined over the past several days, possibly due to nephrotoxicity from antibiotics, recurrent acut e tubular necrosis, possible cardiorenal syndrome, sepsis. The patient did not respond to fluid chal lenge. At this point, continue current treatment plans, supportive care, renally dose all meds, cont inue intermittent diuretic therapy. Will monitor closely. No immediate need for renal replacement t herapy. 2. Hypernatremia. The patient has free water deficit of approximately 2 liters. Will increase free water flushes to 300 mL q.4 hours. Will give a course of 1 liter of D5 water and monitor closely. 3. Hypokalemia. Replete with potassium chloride. 4. Hypomagnesemia. Will replete with magnesium sulfate. 5. Metabolic acidosis secondary to acute kidney injury, chronic kidney disease, improving. Patient remains on Bicitra. Will continue to monitor. 6. Mineral bone disorder. Monitor calcium and phosphorus levels. 7. Volume overload. The patient is on Bumex. Will hold at this time. Will give intermittent metol azone as needed. 8. Anemia. Monitor hemoglobin and hematocrit levels. 9. Ventilator-dependent respiratory failure. Vent settings have been reviewed. Continue to monitor . 10. Sepsis, status post shock. The patient is on antibiotics. I asked Infectious disease for possi ble adjusting antibiotic regimen amidst any worsening renal function. 11. Clostridium difficile. The patient has completed a course of vancomycin. 12. Dysphagia. Continue tube feeding. 13. Encephalopathy. Continue to monitor. 14. Lower extremity wounds. Continue wound care. Dictated By: JEANA BANSAL DO NR/NTS Conf#: [id number] DID#: [id number] CC: ROLAND GIRON MD;*EndCC*
--- NOTE | 2018-07-12 12:04 | CONS ---
Assessment/Plan Assessment/Plan Hospital Course (Demo Recall) Impression: Septic as well as hemorrhagic shock, improved Acute respiratory failure status post intubation and repeat tracheostomy Paroxysmal atrial fibrillation Acute blood loss anemia History of respiratory failure status post decannulation Preserved ejection fraction echocardiogram 05/10/2018 Acute kidney injury Recommendations: Continue amiodarone and metoprolol Vent management as per pulmonary No anticoagulation given recurrent anemia requiring blood transfusions Consultation Date/Type/Reason Admit Date/Time May 06, 2018 at 17:38 Initial Consult Date 05/10/18 Type of Consult Cardiology Requesting Provider: ROLAND GIRON MD Date/Time of Note DATE: 07/12/18 TIME: 12:01 24 HR Interval Summary Free Text/Dictation No events. Complains of leg pain, denies chest or abdomen pain. Exam/Review of Systems Vital Signs Vitals Vital Signs Date Temp Pulse Resp B/P (MAP) Pulse Ox O2 O2 Flow FiO2 Time Delivery Rate 07/12/18 98.6 100 22 150/79 98 Mechanical 11:09 (102) Ventilator 07/12/18 30 09:52 Intake and Output 07/11/18 07/11/18 07/12/18 1515:00 23:00 07:00 IntakeIntake Total 730 ml 780 ml OutputOutput Total 900 ml 650 ml BalanceBalance -170 ml 130 ml Exam Constitutional: alert, non-verbal (tracheostomy) Psych: anxiety Head: normocephalic, atraumatic Eyes: EOMI, nl lids ENMT: nl external ears & nose Neck: other (tracheostomy) Respiratory: clear to auscultation Cardiovascular: regular rate and rhythm; No murmurs/extra sounds Gastrointestinal: soft, non-tender Extremities: edema (mild bilaterally) Skin: nl turgor Labs Result Diagram: 07/12/1831 07/12/1831 Results 24hrs Laboratory Tests Test 07/12/18 06:31 White Blood Count 14.2 H Red Blood Count 2.99 L Hemoglobin 9.6 L Hematocrit 30.7 L Mean Corpuscular Volume 102.7 H Mean Corpuscular Hemoglobin 32.1 Mean Corpuscular Hemoglobin Concent 31.3 L Red Cell Distribution Width 23.4 H Platelet Count 228 Mean Platelet Volume 9.9 Immature Granulocytes % 0.800 H Neutrophils % 87.7 H Lymphocytes % 5.1 L Monocytes % 5.4 Eosinophils % 0.7 Basophils % 0.3 Nucleated Red Blood Cells % 0.1 H Immature Granulocytes # 0.120 H Neutrophils # 12.4 H Lymphocytes # 0.7 L Monocytes # 0.8 Eosinophils # 0.1 Basophils # 0.0 Nucleated Red Blood Cells # 0.0 Sodium Level 150 H Potassium Level 3.4 L Chloride Level 115 H Carbon Dioxide Level 19 L Anion Gap 16 H Blood Urea Nitrogen 116 H Creatinine 2.36 H Est Glomerular Filtrat Rate mL/min Glucose Level 122 Calcium Level 9.2 Phosphorus Level 2.8 Magnesium Level 1.6 L Medications Medications Current Medications IV Flush (NS 10 ml) 10 ml PRN IV ; Start 05/06/18 at 20:30 Zinc Sulfate (Zinc Sulfate) 220 mg DAILY GTB Last administered on 07/12/18 09:54; Admin Dose 220 MG; Start 05/07/18 at 09:00 Ondansetron HCl (Zofran Tab) 4 mg Q6H PRN GTB NAUSEA AND/OR VOMITING Last administered on 05/31/18 16:47; Admin Dose 4 MG; Start 05/07/18 at 00:15 Multivitamins (Multivitamin) 30 ml DAILY GTB Last administered on 07/12/18 0 9:54; Admin Dose 30 ML; Start 05/07/18 at 09:00 Miscellaneous Information (Pending [facility] Order For Wound Care) This patient goldman... PRN PRN XX WOUND CARE; Start 05/09/18 at 17:00 Famotidine (Pepcid) 20 mg DAILY PEG Last administered on 07/12/18 09:54; Admin Dose 20 MG; Start 05/23/18 at 09:00 Morphine Sulfate (morphine) 6 mg Q4H PRN PEG SEVERE PAIN LEVEL 7-10 Last administered on 07/08/18 09:45; Admin Dose 6 MG; Start 05/22/18 at 17:00 Acetaminophen (Tylenol Tab) 650 mg Q4H PRN PO MILD PAIN(1-3)OR ELEVATED TEMP Last administered on 07/06/18 21:25; Admin Dose 650 MG; Start 05/31/18 at 13:00 Metoclopramide HCl (Reglan) 5 mg Q6 IV Last administered on 07/12/18 05:24; Admin Dose 5 MG; Start 05/31/18 at 13:00 Collagenase (Santyl) 1 applic DAILY TOP Last administered on 07/12/18 09:55; A dmin Dose 1 APPLIC; Start 06/01/18 at 09:00 Clonidine (Catapres) 0.1 mg Q6H PRN PO ELEVATED BLOOD PRESSURE Last administered on 07/09/18 09:08; Admin Dose 0.1 MG; Start 06/03/18 at 03:30 Bumetanide (Bumex) 1 mg BID DIURETICS GTB Last administered on 07/12/18 05:23; Admin Dose 1 MG; Start 06/11/18 at 18:00; Status Hold Collagenase (Santyl) 1 applic PRN PRN TOP WHEN SOILED; Start 06/13/18 at 01:00 Nystatin (Nystatin Powder) 1 applic BID TOP Last administered on 07/12/18 09:55; Admin Dose 1 APPLIC; Start 06/13/18 at 14:00 Epoetin Zen-epbx (RETACRIT(esrd)) 20,000 unit Tu@1700 SC Last administered on 07/07/18 17:03; Admin Dose 20,000 UNIT; Start 06/16/18 at 18:30 Miscellaneous Information 1 ea NOTE XX ; Start 06/26/18 at 08:00 Dicyclomine HCl (Bentyl) 20 mg Q8 PO Last administered on 07/12/18 05:22; Admin Dose 20 MG; Start 06/27/18 at 22:00 Cholestyramine Resin (Questran Light) 4 gm 0600,1200,1800,2300 GTB Last administered on 07/12/18 05:24; Admin Dose 4 GM; Start 06/27/18 at 18:00 Lorazepam (Ativan) 0.5 mg Q4 PRN IV ANXIETY Last administered on 07/03/18at 17:32; Admin Dose 0.5 MG; Start 07/01/18 at 14:00 Amiodarone HCl (Cordarone) 200 mg Q8 GTB Last administered on 07/12/18 05:23; Admin Dose 200 MG; Start 07/05/18 at 22:00 Metoprolol Tartrate (Lopressor) 50 mg Q8 GTB Last administered on 07/12/18 05:23; Admin Dose 50 MG; Start 07/05/18 at 22:00 Citric Acid/ Sodium Citrate (Bicitra) 60 ml Q8 PO Last administered on 07/12/18at 05:22; Admin Dose 60 ML; Start 07/09/18 at 14:00 Amikacin Sulfate (Amikacin Iv Per Pharmacy) 1 ea NOTE XX ; Start 07/09/18 at 17:30 Vancomycin HCl (Vancomycin Oral Syringe) 125 mg Q6 GTB Last administered on 07/12/18at 05:22; Admin Dose 125 MG; Start 07/09/18 at 18:00 Amikacin Sulfate 350 mg/Sodium Chloride 101.4 ml @ 101.4 mls/ hr Q48H IVPB Last administered on 07/11/18at 20:18; Admin Dose 101.4 MLS/HR; Start 07/09/18 at 20:30 Metronidazole 100 ml @ 100 mls/hr Q8 IVPB Last administered on 07/12/18at 05:22; Admin Dose 100 MLS/HR; Start 07/09/18 at 22:00 Dextrose 1,000 ml @ 50 mls/hr Q20H IV Last administered on 07/12/18at 09:48; Admin Dose 50 MLS/HR; Start 07/12/18 at 09:00 JULIAN VILLAFUERTE July 12, 2018 12:04
[2018-07-12] MEDS: LORAZEPAM 2 MG INJ IV PRN (22:43)
[2018-07-13] VITALS (24 sets, daily range): BP systolic 108–149; BP diastolic 55–79; PULSE 63–74; RESP 18–30
[2018-07-13] MEDS: [UNRECOGNIZED DRUG - REMARK] XX SCH ×4 (01:17→23:11)
[2018-07-13] MEDS: DEXTROSE 5% 1,000 ML IV SCH ×2 (04:07→04:34)
[2018-07-13] MEDS: LORAZEPAM 2 MG INJ IV PRN ×2 (04:34→11:07)
[2018-07-13] MEDS: CITRIC ACID/NA CITRATE 30 ML CUP PO SCH ×3 (06:11→20:50)
[2018-07-13] MEDS: Metronidazole 500 MG in NS 100 ML IVPB SCH ×3 (06:11→20:49)
[2018-07-13] MEDS: DICYCLOMINE 10 MG CAP PO SCH ×3 (06:11→20:49)
[2018-07-13] MEDS: METOCLOPRAMIDE 10 MG INJ IV SCH ×4 (06:11→23:20)
[2018-07-13] MEDS: METOPROLOL 50 MG TAB GTB SCH ×3 (06:12→20:49)
[2018-07-13] MEDS: AMIODARONE 200 MG TAB GTB SCH ×3 (06:12→20:48)
[2018-07-13] MEDS: CHOLESTYRAMINE (LIGHT) 4 GM PACKET GTB SCH ×4 (06:12→20:50)
[2018-07-13] MEDS: VANCOMYCIN HCL 250 MG/5ML POSYG GTB SCH ×4 (06:21→23:20)
[2018-07-13] MEDS: COLLAGENASE 5 GM (UD JAR) TOP SCH (08:51)
[2018-07-13] MEDS: MULTIVITAMINS 30 ML CUP GTB SCH (08:51)
[2018-07-13] MEDS: FAMOTIDINE 20 MG TAB PEG SCH (08:51)
[2018-07-13] MEDS: ZINC SULFATE 220 MG CAP GTB SCH (08:51)
[2018-07-13] MEDS: NYSTATIN 30 GM POWDER BTL TOP SCH ×2 (08:52→20:47)
[2018-07-13] MEDS: BALSAM PERU/CASTOR OIL 60 GM TUBE TOP SCH ×2 (08:52→20:47)
--- NOTE | 2018-07-13 09:01 | PN ---
DATE: 07/13/2018 SUBJECTIVE: The patient is stable, no events overnight. OBJECTIVE: VITAL SIGNS: Blood pressure is 122/60, respirations 28, pulse 73, temperature 97.7. HEENT: Head is normocephalic. Dry mucous membranes. NECK: Supple. HEART: Regular rate. LUNGS: Show diminished breath sounds at the base. ABDOMEN: Soft, nontender to palpation without rebound or guarding. EXTREMITIES: Negative for clubbing, cyanosis. Trace edema. DERMATOLOGIC: No rashes. MUSCULOSKELETAL: No joint effusion. MEDICATIONS: Reviewed. LABORATORY DATA: Pending. IMAGING STUDIES: Reviewed. ASSESSMENT AND PLAN: 1. Nonoliguric acute kidney injury with previous baseline creatinine around 2.0 mg/dL. Etiology of acute kidney injury was secondary to acute tubular necrosis, and hemodialysis. The patient, however, has shown adequate renal recovery. Dialysis was continued. The patient's renal function; however, has declined over the past week, possibly due to recurrent injury from nephrotoxicity, i.e. antibioti cs, possible cardiorenal syndrome, possible sepsis. The patient's renal function continues to declin e. Recommendation at this point, continue current treatment plans, supportive care, renally dose all medications. We will monitor closely. No immediate need for renal replacement therapy. Continue i ntermittent diuretic therapy. 2. Hypernatremia. The patient is on free water flushes. We will continue. Continue D5 water. Fol low up renal panel. 3. Hypokalemia. Continue to monitor and replete as needed. 4. Hypomagnesemia. Continue to monitor and replete as needed. 5. Metabolic acidosis secondary to acute kidney injury. Continue Bicitra. 6. Mineral bone disorder. Monitor calcium and phosphorus levels. 7. Volume overload. Continue intermittent diuretic therapy. 8. Anemia. Monitor hemoglobin and hematocrit levels. We will continue Epogen. 9. Ventilator-dependent respiratory failure. Vent settings have been reviewed. Continue to monitor . 10. Sepsis, status post shock. The patient remains on antibiotics. We will continue. 11. Clostridium difficile. The patient is completing a course of vancomycin. 12. Dysphagia. Continue tube feeding. 13. Encephalopathy. Continue to monitor. 14. Lower extremity wounds. Continue wound care. Dictated By: JEANA FINE/TABATHA Conf#: [id number] [employer]#: [id number] CC: QUINTEN UMAÑA MD; ROLAND GIRON MD;*End*
--- NOTE | 2018-07-13 14:50 | CONS ---
Assessment/Plan Assessment/Plan Hospital Course (Demo Recall) # sepsis, leukocytosis, SIRS, pulmonary, cardiac - recurrent leukocytosis due to recurrent UTI, improved - s/p septic shock due to pneumonia and C diff colitis - acute on chronic hypoxic respiratory failure, persistent - s/p reintubation 05/12/2018 - s/p re-do trach on 05/29/2018 - recurrent colonization of the anterior neck wound with ESBL+kleb, MRSA, GBS, corynebacteria on 05/06/2018, s/p meropenem - h/o pneumonia vs. colonization of the airway by pseudomonas and ESBL+klebsiella - h/o possible, recurrent HCAP due to pseudomonas and ESBL+klebsiella - h/o recurrent HCAP due to MRSA and Enterobacter (culture of tracheal aspirate on 07/16/2017 that was collected at [facility]) . Pt took vancomycin and ceftazidime - h/o decannulation prior to admission - h/o tracheostomy on 06/11/2017 - h/o SIRS from UGIB in 2018 - h/o thoracentesis on 07/18/2017, transudative (protein <2, LDH 279) - h/o bleeding from the trach site in 2018 - h/o septic shock due to pneumonia, ARDS, bacteremia, fungemia in 2018 - h/o ARDS in 2018 - h/o smoking - COPD - h/o ILD per medical record - h/o PAF, improved # GI - possible ileus or enterocolitis on CT abd/pel 06/15/2018 - C diff colitis, diagnosed on 05/11/2018. Pt's on pGT vancomycin induction followed by taper (05/11/2018-); Pt previously took IV metronidazole (05/11/2018- 05/29/2018; restart 05/30/2018-06/05/18) too - h/o intermittent diarrhea, Pt had multiple negative C. diff tests at [facility] at OSH in the past; none was positive until 05/11/2018 - dysphagia - h/o PEG placement 06/13/2018 - protein calorie malnutrition - h/o coffee ground emesis/UGIB on 12/23/2017 due to deep ulceration of distal esophagus and gastritis on EGD 12/26/2017. No e/o H. pylori - h/o possible appendicitis on CT on 11/22/2017, Pt took ertapenem (11/24/2017-12/01/2017) - h/o extensive adhesions lower abdominal and pelvis between small bowel to each other and to colon and to abdominal wall, anterior pelvic wall chronic abscess secondary to probably an old perforated diverticulitis, torsion of small bowel around these dense adhesion causing multiple obstructive points - h/o laparoscopic exploration and extensive lysis of adhesions and drainage of anterior pelvic wall abscess 09/16/2017. Cultures were negative, no e/o malignancy. 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 S/p renally dosed amikacin for klebsiella in her urine culture (06/17-06/22/2018) - UTI due to pseudomonas and ESBL+klebsiella on 06/09/2018, Pt took one dose of fosfomycin on 06/10/2018 and cipro 06/12-06/15/2018 - anasarca - started on HD on 05/15/2018, via Juan in R groin - recurrent NATHAN on CKD - 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 Her strain of CRE was sensitive to colistin, Avycaz, and Vabomere but resistant to Zerbaxa (reported on 05/19/2018) - metabolic acidosis - adrenal insufficiency - h/o vaginal bleed in 2018 - h/o colonization of urinary tract by ESBL+klebsiella, VRE - h/o recurrent, symptomatic UTI due to carbapenem-resistant kleb (MDR strain) per urine culture 10/04/17, 10/09/17, 10/21/2017, P took colistin (10/09/2017- 10/15/2017), fosfomycin for carbapenemase-producing klebsiella and VRE on 10/25/2017 and 10/28/2017 - h/o funguria - h/o urinary retention # fungemia, bacteremia - Bacteremia d/t pseudomonas aeruginosa 07/09/18 and 07/10/18, repeats 07/11/18 growing GNR. 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; Pt declined surgery for MVR per outside medical records; TTE 07/01/17 did not me ntion any thrombus; s/p voriconazole (05/25/2017-08/01/2017) - h/o bacteremia due to MSSA and proteus s/p ceftriaxone; repeat blood cultures were negative on 06/14/2017 # musculoskeletal and dermatological - L hand pain - dry skin - chronic wound of LLE - h/o infection of wound of LLE - h/o debridement of wound of LLE on 08/06/2017 - h/o recurrent herpes labialis, Pt took acyclovir, valacyclovir - h/o Osler's nodes (eschar) of R toes with erythematous skin; desquamation of the skin and open lacerations on R plantar foot. improved. Probable manifestation of endocarditis. Pt declined MRI on 08/06/2017 - h/o infection of R toes due to pseudomonas. coagulase negative Staph likely a colonizer - h/o intertrigo of the groin, resolved with nystatin powder - h/o scabies, locally crusted lesion over L scapula, s/p permethrin cream and pGT ivermectin on 08/11/2017, 08/12/2017, 08/19/2017. Repeat skin scraping on 08/21/2017 was negative for scabies # psych, neuro - decreased hearing b/l - s/p acute toxic metabolic encephalopathy - h/o critical illness polyneuropathy - anxiety/depression, bipolar d/o, seen by Psychiatry in the past - chronic pain syndrome - h/o medical non-compliance: she would refuse her medications, treatment and straight catheterization in 2018 # hematological, vascular - chronic anemia requiring blood transfusion intermittently - macrocytic anemia - aneurysmal dilatation of the distal aorta visualized on CT 06/15/2018 - PVD - S/p renally dosed amikacin for klebsiella in her urine culture (06/17- Recommendations: - Continue Vanco pGT (07/09/18/ - ) and flagyl IV (07/09/18 - ) - Continue Amikacin IV (renal dosing) - Echocardiogram - may need to consider addition of colistin if persistently bacteremic although her renal function makes this very difficult - monitor crcl closely - Strongly onsider picc line removal if picc is removed, send tip for culture - Ordered: Repeat blood cultures x2 - 1 set from peripheral and 1 set from PICC again today - F/u blood cultures 07/11/18 GNR and GT wound culture (in process) - Consider CT chest/abdomen pelvis if to help delineate source. - Trend WBC 9) Consultation Date/Type/Reason Admit Date/Time May 06, 2018 at 17:38 Initial Consult Date 05/10/18 Type of Consult ID Requesting Provider: ROLAND GIRON MD Date/Time of Note DATE: 07/13/18 TIME: 14:48 cct. 2.5h Exam/Review of Systems Exam Vitals Vital Signs Date Temp Pulse Resp B/P (MAP) Pulse Ox O2 O2 Flow FiO2 Time Delivery Rate 07/13/18 73 132/63 13:26 (86) 07/13/18 22 100 30 11:27 07/13/18 98.3 Trach 10:53 Collar Intake and Output 07/12/18 07/12/18 07/13/18 1515:00 23:00 07:00 IntakeIntake Total 1580 ml 2680 ml OutputOutput Total 600 ml 700 ml BalanceBalance 980 ml 1980 ml Constitutional: alert Psych: anxiety Head: normocephalic, atraumatic Eyes: EOMI Respiratory: clear to auscultation Gastrointestinal: soft Neurological: NICKEL OPERATOR II-XII intact Results Result Diagram: 07/13/18 0655 07/13/18 0655 Results 24hrs Laboratory Tests Test 07/13/18 06:55 White Blood Count 13.6 H Red Blood Count 2.73 L Hemoglobin 8.7 L Hematocrit 28.5 L Mean Corpuscular Volume 104.4 H Mean Corpuscular Hemoglobin 31.9 Mean Corpuscular Hemoglobin Concent 30.5 L Red Cell Distribution Width 23.3 H Platelet Count 218 Mean Platelet Volume 10.5 H Immature Granulocytes % 0.700 H Neutrophils % 84.5 H Lymphocytes % 7.1 L Monocytes % 5.7 Eosinophils % 1.7 Basophils % 0.3 Nucleated Red Blood Cells % 0.0 Immature Granulocytes # 0.100 H Neutrophils # 11.5 H Lymphocytes # 1.0 Monocytes # 0.8 Eosinophils # 0.2 Basophils # 0.0 Nucleated Red Blood Cells # 0.0 Sodium Level 146 H Potassium Level 3.7 Chloride Level 113 H Carbon Dioxide Level 19 L Anion Gap 14 H Blood Urea Nitrogen 119 H Creatinine 2.32 H Est Glomerular Filtrat Rate mL/min Glucose Level 113 Calcium Level 8.7 Phosphorus Level 2.3 L Magnesium Level 2.0 Medications Medication Current Medications IV Flush (NS 10 ml) 10 ml PRN IV ; Start 05/06/18 at 20:30 Zinc Sulfate (Zinc Sulfate) 220 mg DAILY GTB Last administered on 07/13/18 08:51; Admin Dose 220 MG; Start 05/07/18 at 09:00 Ondansetron HCl (Zofran Tab) 4 mg Q6H PRN GTB NAUSEA AND/OR VOMITING Last administered on 05/31/18 16:47; Admin Dose 4 MG; Start 05/07/18 at 00:15 Multivitamins (Multivitamin) 30 ml DAILY GTB Last administered on 07/13/18 08:51; Admin Dose 30 ML; Start 05/07/18 at 09:00 Miscellaneous Information (Pending [facility] Order For Wound Care) This patient goldman... PRN PRN XX WOUND CARE; Start 05/09/18 at 17:00 Famotidine (Pepcid) 20 mg DAILY PEG Last administered on 07/13/18 08:51; Admin Dose 20 MG; Start 05/23/18 at 09:00 Morphine Sulfate (morphine) 6 mg Q4H PRN PEG SEVERE PAIN LEVEL 7-10 Last administered on 07/08/18 09:45; Admin Dose 6 MG; Start 05/22/18 at 17:00 Acetaminophen (Tylenol Tab) 650 mg Q4H PRN PO MILD PAIN(1-3)OR ELEVATED TEMP Last administered on 07/06/18 21:25; Admin Dose 650 MG; Start 05/31/18 at 13:00 Metoclopramide HCl (Reglan) 5 mg Q6 IV Last administered on 07/13/18 11:07; Admin Dose 5 MG; Start 05/31/18 at 13:00 Collagenase (Santyl) 1 applic DAILY TOP Last administered on 07/13/18 08:51; Admin Dose 1 APPLIC; Start 06/01/18 at 09:00 Clonidine (Catapres) 0.1 mg Q6H PRN PO ELEVATED BLOOD PRESSURE Last adminis tered on 07/09/18 09:08; Admin Dose 0.1 MG; Start 06/03/18 at 03:30 Bumetanide (Bumex) 1 mg BID DIURETICS GTB Last administered on 07/12/18 05:23; Admin Dose 1 MG; Start 06/11/18 at 18:00; Status Hold Collagenase (Santyl) 1 applic PRN PRN TOP WHEN SOILED; Start 06/13/18 at 01:00 Nystatin (Nystatin Powder) 1 applic BID TOP Last administered on 07/13/18 08:52; Admin Dose 1 APPLIC; Start 06/13/18 at 14:00 Epoetin Zen-epbx (RETACRIT(esrd)) 20,000 unit Tu@1700 SC Last administered on 07/07/18 17:03; Admin Dose 20,000 UNIT; Start 06/16/18 at 18:30 Miscellaneous Information 1 ea NOTE XX ; Start 06/26/18 at 08:00 Dicyclomine HCl (Bentyl) 20 mg Q8 PO Last administered on 07/13/18 13:27; Admin Dose 20 MG; Start 06/27/18 at 22:00 Cholestyramine Resin (Questran Light) 4 gm 0600,1200,1800,2300 GTB Last administered on 07/13/18 11:08; Admin Dose 4 GM; Start 06/27/18 at 18:00 Lorazepam (Ativan) 0.5 mg Q4 PRN IV ANXIETY Last administered on 07/13/18 11:07; Admin Dose 0.5 MG; Start 07/01/18 at 14:00 Amiodarone HCl (Cordarone) 200 mg Q8 GTB Last administered on 07/13/18 13:28; Admin Dose 200 MG; Start 07/05/18 at 22:00 Metoprolol Tartrate (Lopressor) 50 mg Q8 GTB Last administered on 07/13/18 13:27; Admin Dose 50 MG; Start 07/05/18 at 22:00 Citric Acid/ Sodium Citrate (Bicitra) 60 ml Q8 PO Last administered on 07/13/18 13:27; Admin Dose 60 ML; Start 07/09/18 at 14:00 Amikacin Sulfate (Amikacin Iv Per Pharmacy) 1 ea NOTE XX ; Start 07/09/18 at 17:30 Vancomycin HCl (Vancomycin Oral Syringe) 125 mg Q6 GTB Last administered on 07/13/18 11:08; Admin Dose 125 MG; Start 07/09/18 at 18:00 Amikacin Sulfate 350 mg/Sodium Chloride 101.4 ml @ 101.4 mls/ hr Q48H IVPB Last administered on 07/11/18 20:18; Admin Dose 101.4 MLS/HR; Start 07/09/18 at 20:30 Metronidazole 100 ml @ 100 mls/hr Q8 IVPB Last administered on 07/13/18 13:28; Admin Dose 100 MLS/HR; Start 07/09/18 at 22:00 Dextrose 1,000 ml @ 50 mls/hr Q20H IV Last administered on 07/13/18 04:34; Admin Dose 50 MLS/HR; Start 07/12/18 at 09:00 Miscellaneous Information (*Rx Drug Level Order Reminder*) AMIKACIN TR LEVEL PRIOR... 1930 ONCE XX ; Start 07/13/18 at 19:30; Stop 07/13/18 at 19:31 Miscellaneous Information (*Order Clarification Bulletin) MEDICATION REQUIRES CLARIFICATI... Q8H XX ; Start 07/13/18 at 01:30 Epoetin Zen-epbx (Retacrit (Non-Esrd)) 10,000 unit MoWeFr@1700 SC ; Start 07/13/18 at 17:00 Miscellaneous Information (*Order Clarification Bulletin) MEDICATION REQUIRES CLARIFICATI... Q8H XX ; Start 07/13/18 at 14:30; Stop 07/15/18 at 14:29 MANN VALDEZ MD July 13, 2018 14:50
--- NOTE | 2018-07-13 17:07 | PN ---
Date/Time of Note Date/Time of Note DATE: 07/13/18 TIME: 16:56 Assessment/Plan VTE Prophylaxis Risk score (from [facility] [place]0 risk: 12 SCD applied (from [facility] [place]): Yes Pharmacological prophylaxis: NA/contraindicated Pharm contraindication: anticoag not tolerated Lines/Catheters IV Catheter Type (from [place]): PICC Line Central line still needed: Yes Urinary Cath still in place: Yes Reason Cath still needed: urinary retention Assessment/Plan Hospital Course Patient with persistent gram-negative rods bacteremia, continued on multiple antibiotics. Follow-up on culture from PICC line. Assessment/Plan -Persistent leukocytosis with Pseudomonas bacteremia, continue antibiotics per ID. -MDR Klebsiella urinary tract infection, completed treatment with amikacin. Dr. Doyle is following in infectious consultation. -Atrial fibrillation was rapid ventricular response, patient remains in sinus rhythm continue metoprolol and amiodarone. Dr. Scanlon is following in cardiology consultation. -S/p septic shock secondary to urinary tract infection, anterior neck soft tissue infection, and C. difficile colitis. -C-diff colitis,resolved. -Acute respiratory failure requiring intubation and ventilatory support. Dr. Lambert is following in pulmonology consultation. -S/p tracheostomy on 05/29/18. -Acute kidney injury on chronic kidney disease. Started on HD this admission with recovery of renal function. Dr. Mckeon is following in nephrology consultation. -Anemia of chronic inflammation, stool for OB is negative, status post blood transfusion. Continue Epogen. -Metabolic acidosis, resolved. -Acute diastolic congestive heart failure. -Paroxysmal atrial fibrillation -COPD -Dysphagia with PEG. -G-tube mild malfunction, changed by GI Dr. Carolina is following in gastroenterology consultation. -Obesity -Critical care myopathy Further recommendations based on clinical course. Plan of care discussed with Dr. Eisenberg. Result Diagram: 07/13/18 0655 07/13/18 0655 Results 24hrs Laboratory Tests Test 07/13/18 06:55 White Blood Count 13.6 H Red Blood Count 2.73 L Hemoglobin 8.7 L Hematocrit 28.5 L Mean Corpuscular Volume 104.4 H Mean Corpuscular Hemoglobin 31.9 Mean Corpuscular Hemoglobin Concent 30.5 L Red Cell Distribution Width 23.3 H Platelet Count 218 Mean Platelet Volume 10.5 H Immature Granulocytes % 0.700 H Neutrophils % 84.5 H Lymphocytes % 7.1 L Monocytes % 5.7 Eosinophils % 1.7 Basophils % 0.3 Nucleated Red Blood Cells % 0.0 Immature Granulocytes # 0.100 H Neutrophils # 11.5 H Lymphocytes # 1.0 Monocytes # 0.8 Eosinophils # 0.2 Basophils # 0.0 Nucleated Red Blood Cells # 0.0 Sodium Level 146 H Potassium Level 3.7 Chloride Level 113 H Carbon Dioxide Level 19 L Anion Gap 14 H Blood Urea Nitrogen 119 H Creatinine 2.32 H Est Glomerular Filtrat Rate mL/min Glucose Level 113 Calcium Level 8.7 Phosphorus Level 2.3 L Magnesium Level 2.0 Exam/Review of Systems Exam Vitals Vital Signs Date Temp Pulse Resp B/P (MAP) Pulse Ox O2 O2 Flow FiO2 Time Delivery Rate 07/13/18 63 16:00 07/13/18 98.6 22 132/62 100 Trach 15:58 (85) Collar 07/13/18 30 15:02 Intake and Output 07/12/18 07/12/18 07/13/18 1515:00 23:00 07:00 IntakeIntake Total 1580 ml 2680 ml OutputOutput Total 600 ml 700 ml BalanceBalance 980 ml 1980 ml Exam Constitutional: alert, oriented Neck: other (Tracheostomy) Respiratory: diminished breath sounds Cardiovascular: regular rate and rhythm Gastrointestinal: soft, non-tender, other (G-tube) Extremities: normal pulses Neurological: nl mental status Results Results 24hrs Laboratory Tests Test 07/13/18 06:55 White Blood Count 13.6 H Red Blood Count 2.73 L Hemoglobin 8.7 L Hematocrit 28.5 L Mean Corpuscular Volume 104.4 H Mean Corpuscular Hemoglobin 31.9 Mean Corpuscular Hemoglobin Concent 30.5 L Red Cell Distribution Width 23.3 H Platelet Count 218 Mean Platelet Volume 10.5 H Immature Granulocytes % 0.700 H Neutrophils % 84.5 H Lymphocytes % 7.1 L Monocytes % 5.7 Eosinophils % 1.7 Basophils % 0.3 Nucleated Red Blood Cells % 0.0 Immature Granulocytes # 0.100 H Neutrophils # 11.5 H Lymphocytes # 1.0 Monocytes # 0.8 Eosinophils # 0.2 Basophils # 0.0 Nucleated Red Blood Cells # 0.0 Sodium Level 146 H Potassium Level 3.7 Chloride Level 113 H Carbon Dioxide Level 19 L Anion Gap 14 H Blood Urea Nitrogen 119 H Creatinine 2.32 H Est Glomerular Filtrat Rate mL/min Glucose Level 113 Calcium Level 8.7 Phosphorus Level 2.3 L Magnesium Level 2.0 Medications Medication Current Medications IV Flush (NS 10 ml) 10 ml PRN IV ; Start 05/06/18 at 20:30 Zinc Sulfate (Zinc Sulfate) 220 mg DAILY GTB Last administered on 07/13/18 08:51; Admin Dose 220 MG; Start 05/07/18 at 09:00 Ondansetron HCl (Zofran Tab) 4 mg Q6H PRN GTB NAUSEA AND/OR VOMITING Last administered on 05/31/18 16:47; Admin Dose 4 MG; Start 05/07/18 at 00:15 Multivitamins (Multivitamin) 30 ml DAILY GTB Last administered on 07/13/18 08:51; Admin Dose 30 ML; Start 05/07/18 at 09:00 Miscellaneous Information (Pending Santyl Order For Wound Care) This patient goldman... PRN PRN XX WOUND CARE; Start 05/09/18 at 17:00 Famotidine (Pepcid) 20 mg DAILY PEG Last administered on 07/13/18 08:51; Admin Dose 20 MG; Start 05/23/18 at 09:00 Morphine Sulfate (morphine) 6 mg Q4H PRN PEG SEVERE PAIN LEVEL 7-10 Last administered on 07/08/18 09:45; Admin Dose 6 MG; Start 05/22/18 at 17:00 Acetaminophen (Tylenol Tab) 650 mg Q4H PRN PO MILD PAIN(1-3)OR ELEVATED TEMP Last administered on 07/06/18 21:25; Admin Dose 650 MG; Start 05/31/18 at 13:00 Metoclopramide HCl (Reglan) 5 mg Q6 IV Last administered on 07/13/18 11:07; Admin Dose 5 MG; Start 05/31/18 at 13:00 Collagenase (Santyl) 1 applic DAILY TOP Last administered on 07/13/18 08:51; Admin Dose 1 APPLIC; Start 06/01/18 at 09:00 Clonidine (Catapres) 0.1 mg Q6H PRN PO ELEVATED BLOOD PRESSURE Last administered on 07/09/18 09:08; Admin Dose 0.1 MG; Start 06/03/18 at 03:30 Bumetanide (Bumex) 1 mg BID DIURETICS GTB Last administered on 07/12/18 05:23; Admin Dose 1 MG; Start 06/11/18 at 18:00; Status Hold Collagenase (Santyl) 1 applic PRN PRN TOP WHEN SOILED; Start 06/13/18 at 01:00 Nystatin (Nystatin Powder) 1 applic BID TOP Last administered on 07/13/18 08:52; Admin Dose 1 APPLIC; Start 06/13/18 at 14:00 Epoetin Zen-epbx (RETACRIT(esrd)) 20,000 unit Tu@1700 SC Last administered on 07/07/18 17:03; Admin Dose 20,000 UNIT; Start 06/16/18 at 18:30 Miscellaneous Information 1 ea NOTE XX ; Start 06/26/18 at 08:00 Dicyclomine HCl (Bentyl) 20 mg Q8 PO Last administered on 07/13/18 13:27; Admin Dose 20 MG; Start 06/27/18 at 22:00 Cholestyramine Resin (Questran Light) 4 gm 0600,1200,1800,2300 GTB Last administered on 07/13/18 11:08; Admin Dose 4 GM; Start 06/27/18 at 18:00 Lorazepam (Ativan) 0.5 mg Q4 PRN IV ANXIETY Last administered on 07/13/18 11:07; Admin Dose 0.5 MG; Start 07/01/18 at 14:00 Amiodarone HCl (Cordarone) 200 mg Q8 GTB Last administered on 07/13/18 13:28; Admin Dose 200 MG; Start 07/05/18 at 22:00 Metoprolol Tartrate (Lopressor) 50 mg Q8 GTB Last administered on 07/13/18 13:27; Admin Dose 50 MG; Start 07/05/18 at 22:00 Citric Acid/ Sodium Citrate (Bicitra) 60 ml Q8 PO Last administered on 13:27; Admin Dose 60 ML; Start 07/09/18 at 14:00 Amikacin Sulfate (Amikacin Iv Per Pharmacy) 1 ea NOTE XX ; Start 07/09/18 at 17:30 Vancomycin HCl (Vancomycin Oral Syringe) 125 mg Q6 GTB Last administered on 5/27/19at 11:08; Admin Dose 125 MG; Start 07/09/18 at 18:00 Amikacin Sulfate 350 mg/Sodium Chloride 101.4 ml @ 101.4 mls/ hr Q48H IVPB Last administered on 07/11/18at 20:18; Admin Dose 101.4 MLS/HR; Start 07/09/18 at 20:30 Metronidazole 100 ml @ 100 mls/hr Q8 IVPB Last administered on 07/13/18at 13:28; Admin Dose 100 MLS/HR; Start 07/09/18 at 22:00 Dextrose 1,000 ml @ 50 mls/hr Q20H IV Last administered on 07/13/18at 04:34; Admin Dose 50 MLS/HR; Start 07/12/18 at 09:00 Miscellaneous Information (*Rx Drug Level Order Reminder*) AMIKACIN TR LEVEL PRIOR... 1930 ONCE XX ; Start 07/13/18 at 19:30; Stop 07/13/18 at 19:31 Miscellaneous Information (*Order Clarification Bulletin) MEDICATION REQUIRES CLARIFICATI... Q8H XX ; Start 07/13/18 at 01:30 Epoetin Zen-epbx (Retacrit (Non-Esrd)) 10,000 unit MoWeFr@1700 SC ; Start 07/13/18 at 17:00 Miscellaneous Information (*Order Clarification Bulletin) MEDICATION REQUIRES CLARIFICATI... Q8H XX ; Start 07/13/18 at 14:30; Stop 07/15/18 at 14:29 GRISELDA DENNIS July 13, 2018 17:06
[2018-07-13] MEDS: EPOETIN ALFA-EPBX (NON-ESRD 10,000 UNIT/ML VIAL SC SCH (21:00)
[2018-07-13] MEDS: AMIKACIN 350 MG in SOD CHLORIDE 0.9% 100 ML IVPB SCH (22:07)
[2018-07-14] VITALS (24 sets, daily range): BP systolic 139–153; BP diastolic 62–85; PULSE 68–79; RESP 16–30
[2018-07-14] MEDS: CHOLESTYRAMINE (LIGHT) 4 GM PACKET GTB SCH ×4 (05:05→23:00)
[2018-07-14] MEDS: METOPROLOL 50 MG TAB GTB SCH ×3 (05:05→22:36)
[2018-07-14] MEDS: AMIODARONE 200 MG TAB GTB SCH ×3 (05:06→22:38)
[2018-07-14] MEDS: VANCOMYCIN HCL 250 MG/5ML POSYG GTB SCH ×3 (05:08→17:30)
[2018-07-14] MEDS: Metronidazole 500 MG in NS 100 ML IVPB SCH ×3 (05:18→22:36)
[2018-07-14] MEDS: DICYCLOMINE 10 MG CAP PO SCH ×3 (05:18→22:37)
[2018-07-14] MEDS: CITRIC ACID/NA CITRATE 30 ML CUP PO SCH ×3 (05:18→22:36)
[2018-07-14] MEDS: METOCLOPRAMIDE 10 MG INJ IV SCH ×3 (05:19→17:30)
[2018-07-14] MEDS: MULTIVITAMINS 30 ML CUP GTB SCH (08:42)
[2018-07-14] MEDS: ZINC SULFATE 220 MG CAP GTB SCH (08:42)
[2018-07-14] MEDS: [UNRECOGNIZED DRUG - REMARK] XX SCH ×2 (08:43→17:29)
[2018-07-14] MEDS: FAMOTIDINE 20 MG TAB PEG SCH (08:43)
[2018-07-14] MEDS: COLLAGENASE 5 GM (UD JAR) TOP SCH ×2 (08:43→21:04)
[2018-07-14] MEDS: NYSTATIN 30 GM POWDER BTL TOP SCH ×2 (08:43→21:11)
[2018-07-14] MEDS: BALSAM PERU/CASTOR OIL 60 GM TUBE TOP SCH ×2 (08:43→21:04)
--- NOTE | 2018-07-14 08:58 | PN ---
DATE: 07/14/2018 SUBJECTIVE: The patient is stable. No events overnight. OBJECTIVE: VITAL SIGNS: Blood pressure is 153/84, pulse 77, respirations 17, temperature 98.0. HEENT: Head is normocephalic. NECK: Supple. HEART: Regular rate. LUNGS: Show diminished breath sounds at the base. ABDOMEN: Soft, nontender to palpation without rebound or guarding. EXTREMITIES: Negative for clubbing, cyanosis. Trace edema. DERMATOLOGIC: No rashes. MUSCULOSKELETAL: No joint effusion. NEUROLOGIC: No change in exam. MEDICATIONS: Reviewed. LABORATORY DATA: Reviewed. ASSESSMENT AND PLAN: 1. Nonoliguric acute kidney injury with previous baseline creatinine of 2.0 mg/dL. Etiology of acut e kidney injury is secondary to acute tubular necrosis. The patient was initiated on hemodialysis; h owever, the patient had adequate renal recovery and dialysis was discontinued. However, renal functi on has declined over the past 7 to 10 days. Etiology may be due to antibiotics, cardiorenal syndrome , sepsis. At this point, we will continue current treatment plan. Continue supportive care, renally dose all medications, no immediate need for renal replacement therapy. We will monitor closely. 2. Hypernatremia. Sodium levels are improving. Continue free water flushes. We will follow up [place] al panel. We will consider discontinuing D5 water. 3. Hypokalemia. Continue to monitor and replete as needed. 4. Hypomagnesemia. Continue to monitor and replete as needed. 5. Metabolic acidosis secondary to diabetic ketoacidosis, acute kidney injury. Continue Bicitra. 6. Mineral bone disorder and calcium and phosphorus levels. 7. Volume overload. Continue intermittent diuretic therapy. 8. Anemia. Monitor hemoglobin and hematocrit levels. Continue Epogen as needed. 9. Ventilator-dependent respiratory failure. Vent settings have been reviewed. Continue to monitor . 10. Sepsis, status post shock. The patient is completing antibiotic course. 11. Clostridium difficile. Continue vancomycin. 12. Dysphagia. Continue tube feeding. 13. Encephalopathy. Continue to monitor. 14. Lower extremity wounds. Continue wound care. Dictated By: JEANA BANSAL DO NR/NTS Conf#: [id number] DID#: [id number] CC: QUINTEN UMAÑA MD; ROLAND GIRON MD;*EndCC*
--- NOTE | 2018-07-14 16:07 | CONS ---
Assessment/Plan Assessment/Plan Hospital Course (Demo Recall) Septic as well as hemorrhagic shock Acute respiratory failure status post intubation and repeat tracheostomy Acute blood loss anemia History of respiratory failure status post decannulation Preserved ejection fraction echocardiogram 05/10/2018 Paroxysmal atrial fibrillation Acute kidney injury -Blood pressure trend overall improved. Continue beta-tin as tolerated -Patient with paroxysmal atrial fibrillation, currently in sinus rhythm -Continue amiodarone as tolerated -Vent management as per pulmonary -Fluid management and electrolytes as per renal -Antibiotics as per infectious disease -No anticoagulation given recurrent anemia requiring blood transfusions Consultation Date/Type/Reason Admit Date/Time May 06, 2018 at 17:38 Initial Consult Date 05/10/18 Type of Consult Cardiology Requesting Provider: ROLAND GIRON MD Date/Time of Note DATE: 07/14/18 TIME: 16:06 24 HR Interval Summary Free Text/Dictation No shortness of breath, palpitations Exam/Review of Systems Vital Signs Vitals Vital Signs Date Temp Pulse Resp B/P (MAP) Pulse Ox O2 O2 Flow FiO2 Time Delivery Rate 07/14/18 97.9 68 16 139/65 100 15:58 (89) 07/14/18 30 11:33 07/13/18 Trach 15:58 Collar Intake and Output 07/13/18 07/13/18 07/14/18 1515:00 23:00 07:00 IntakeIntake Total 100 ml 2031.4 ml 2080 ml OutputOutput Total 500 ml 550 ml BalanceBalance 100 ml 1531.4 ml 1530 ml Exam Constitutional: alert (Following commands, no apparent distress) Head: normocephalic Neck: other (Tracheostomy) Respiratory: other (Coarse breath sounds bilaterally, no wheezing) Cardiovascular: regular rate and rhythm (S1-S2 heard) Gastrointestinal: soft, non-tender, bowel sounds Extremities: edema Labs Result Diagram: 07/14/18 0728 07/14/18 0728 Results 24hrs Laboratory Tests Test 07/13/18 19:16 07/13/18 20:43 07/13/18 23:42 07/14/18 06:07 Amikacin Level Trough Bedside Glucose 132 Amikacin Level Peak Lab Scanned Report REFERENCE LAB Test 07/14/18 07:28 White Blood Count 15.9 H Red Blood Count 2.84 L Hemoglobin 9.1 L Hematocrit 29.7 L Mean Corpuscular 104.6 H Volume Mean Corpuscular 32.0 Hemoglobin Mean Corpuscular 30.6 L Hemoglobin Concent Red Cell 22.6 H Distribution Width Platelet Count 222 Mean Platelet 10.6 H Volume Immature 0.800 H Granulocytes % Neutrophils % 86.8 H Lymphocytes % 5.8 L Monocytes % 4.2 Eosinophils % 2.1 Basophils % 0.3 Nucleated Red 0.0 Blood Cells % Immature 0.120 H Granulocytes # Neutrophils # 13.8 H Lymphocytes # 0.9 Monocytes # 0.7 Eosinophils # 0.3 Basophils # 0.0 Nucleated Red 0.0 Blood Cells # Sodium Level 142 Potassium Level 3.7 Chloride Level 108 Carbon Dioxide 21 Level Anion Gap 13 Blood Urea 115 H Nitrogen Creatinine 2.17 H Est Glomerular Filtrat Rate mL/min Glucose Level 118 Calcium Level 8.8 Phosphorus Level 2.4 L Magnesium Level 1.9 Medications Medications Current Medications IV Flush (NS 10 ml) 10 ml PRN IV ; Start 05/06/18 at 20:30 Zinc Sulfate (Zinc Sulfate) 220 mg DAILY GTB Last administered on 07/14/18 08:42; Admin Dose 220 MG; Start 05/07/18 at 09:00 Ondansetron HCl (Zofran Tab) 4 mg Q6H PRN GTB NAUSEA AND/OR VOMITING Last administered on 05/31/18 16:47; Admin Dose 4 MG; Start 05/07/18 at 00:15 Multivitamins (Multivitamin) 30 ml DAILY GTB Last administered on 07/14/18 08:42; Admin Dose 30 ML; Start 05/07/18 at 09:00 [facility]iscellaneous [facility] This patient goldman... PRN PRN XX WOUND CARE; Start 05/09/18 at 17:00 Famotidine (Pepcid) 20 mg DAILY PEG Last administered on 07/14/18 08:43; Admin Dose 20 MG; Start 05/23/18 at 09:00 Morphine Sulfate (morphine) 6 mg Q4H PRN PEG SEVERE PAIN LEVEL 7-10 Last administered on 07/08/18 09:45; Admin Dose 6 MG; Start 05/22/18 at 17:00 Acetaminophen (Tylenol Tab) 650 mg Q4H PRN PO MILD PAIN(1-3)OR ELEVATED TEMP Last administered on 07/06/18 21:25; Admin Dose 650 MG; Start 05/31/18 at 13:00 Metoclopramide HCl (Reglan) 5 mg Q6 IV Last administered on 07/14/18 12:57; Admin Dose 5 MG; Start 05/31/18 at 13:00 Collagenase (Santyl) 1 applic DAILY TOP Last administered on 07/13/18 08:51; Admin Dose 1 APPLIC; Start 06/01/18 at 09:00 Clonidine (Catapres) 0.1 mg Q6H PRN PO ELEVATED BLOOD PRESSURE Last administered on 07/09/18 09:08; Admin Dose 0.1 MG; Start 06/03/18 at 03:30 Bumetanide (Bumex) 1 mg BID DIURETICS GTB Last administered on 07/12/18 05:23; Admin Dose 1 MG; Start 06/11/18 at 18:00; Status Hold Collagenase (Santyl) 1 applic PRN PRN TOP WHEN SOILED; Start 06/13/18 at 01:00 Nystatin (Nystatin Powder) 1 applic BID TOP Last administered on 07/14/18 08:43; Admin Dose 1 APPLIC; Start 06/13/18 at 14:00 Miscellaneous Information 1 ea NOTE XX ; Start 06/26/18 at 08:00 Dicyclomine HCl (Bentyl) 20 mg Q8 PO Last administered on 07/14/18 13:20; Admin Dose 20 MG; Start 06/27/18 at 22:00 Cholestyramine Resin (Questran Light) 4 gm 0600,1200,1800,2300 GTB Last administered on 07/14/18 12:56; Admin Dose 4 GM; Start 06/27/18 at 18:00 Lorazepam (Ativan) 0.5 mg Q4 PRN IV ANXIETY Last administered on 07/13/18 11:0 7; Admin Dose 0.5 MG; Start 07/01/18 at 14:00 Amiodarone HCl (Cordarone) 200 mg Q8 GTB Last administered on 07/14/18 13:20; Admin Dose 200 MG; Start 07/05/18 at 22:00 Metoprolol Tartrate (Lopressor) 50 mg Q8 GTB Last administered on 07/14/18 13:20; Admin Dose 50 MG; Start 07/05/18 at 22:00 Citric Acid/ Sodium Citrate (Bicitra) 60 ml Q8 PO Last administered on 07/14/18at 13:20; Admin Dose 60 ML; Start 07/09/18 at 14:00 Amikacin Sulfate (Amikacin Iv Per Pharmacy) 1 ea NOTE XX ; Start 07/09/18 at 17:30 Vancomycin HCl (Vancomycin Oral Syringe) 125 mg Q6 GTB Last administered on 07/14/18at 12:56; Admin Dose 125 MG; Start 07/09/18 at 18:00 Metronidazole 100 ml @ 100 mls/hr Q8 IVPB Last administered on 07/14/18at 13:19; Admin Dose 100 MLS/HR; Start 07/09/18 at 22:00 Miscellaneous Information (*Order Clarification Bulletin) MEDICATION REQUIRES CLARIFICATI... Q8H XX ; Start 07/13/18 at 01:30 Epoetin Zen-epbx (Retacrit (Non-Esrd)) 10,000 unit MoWeFr@1700 SC Last administered on 07/13/18at 21:00; Admin Dose 10,000 UNIT; Start 07/13/18 at 17:00 Miscellaneous Information (*Order Clarification Bulletin) MEDICATION REQUIRES CLARIFICATI... Q8H XX ; Start 07/13/18 at 14:30; Stop 07/15/18 at 14:29 Amikacin Sulfate 300 mg/Sodium Chloride 101.2 ml @ 101.4 mls/ hr Q48H IVPB ; Start 07/14/18 at 23:00 Evangelista Scanlon DO July 14, 2018 16:07
--- NOTE | 2018-07-14 16:53 | CONS ---
Assessment/Plan Assessment/Plan Hospital Course (Demo Recall) # sepsis, leukocytosis, SIRS, pulmonary, cardiac - recurrent leukocytosis due to bacteremia (see below) - s/p septic shock due to pneumonia and C diff colitis - acute on chronic hypoxic respiratory failure, persistent - s/p reintubation 05/12/2018 - s/p re-do trach on 05/29/2018 - recurrent colonization of the anterior neck wound with ESBL+kleb, MRSA, GBS, corynebacteria on 05/06/2018, s/p meropenem - h/o pneumonia vs. colonization of the airway by pseudomonas and ESBL+klebsiella - h/o possible, recurrent HCAP due to pseudomonas and ESBL+klebsiella - h/o recurrent HCAP due to MRSA and Enterobacter (culture of tracheal aspirate on 07/16/2017 that was collected at [facility]) . Pt took vancomycin and ceftazidime - h/o decannulation prior to admission - h/o tracheostomy on 06/11/2017 - h/o SIRS from UGIB in 2018 - h/o thoracentesis on 07/18/2017, transudative (protein <2, LDH 279) - h/o bleeding from the trach site in 2018 - h/o septic shock due to pneumonia, ARDS, bacteremia, fungemia in 2018 - h/o ARDS in 2018 - h/o smoking - COPD - h/o ILD per medical record - h/o PAF, improved # GI - possible ileus or enterocolitis on CT abd/pel 06/15/2018 - C diff colitis, diagnosed on 05/11/2018. Pt's on pGT vancomycin induction followed by taper (05/11/2018-); Pt previously took IV metronidazole (05/11/2018- 05/29/2018; restart 05/30/2018-06/05/18) too - h/o intermittent diarrhea, Pt had multiple negative C. diff tests at [facility] at OSH in the past; none was positive until 05/11/2018 - dysphagia - h/o PEG placement 06/13/2018 - protein calorie malnutrition - h/o coffee ground emesis/UGIB on 12/23/2017 due to deep ulceration of distal esophagus and gastritis on EGD 12/26/2017. No e/o H. pylori - h/o possible appendicitis on CT on 11/22/2017, Pt took ertapenem (11/24/2017- 12/01/2017) - h/o extensive adhesions lower abdominal and pelvis between small bowel to each other and to colon and to abdominal wall, anterior pelvic wall chronic abscess secondary to probably an old perforated diverticulitis, torsion of small bowel around these dense adhesion causing multiple obstructive points - h/o laparoscopic exploration and extensive lysis of adhesions and drainage of anterior pelvic wall abscess 09/16/2017. Cultures were negative, no e/o malignancy. Pt took pip/tazo (09/16/2017-09/26/2017) - h/o EGD and exchange of PEG on 09/01/2017 - h/o partial obstruction mid jejunum in L anterior central pelvis with s uggestion of a 3 cm soft tissue mass on CT 08/28/2017 - h/o internal stomal deep ulcer behind the internal bumper, gastritis and esophagitis, Rodriguez's cannot be ruled out, per EGD with biopsy 07/23/2017 - h/o GIB s/p flex sig showed polyp; stool OB negative on 06/29/17 - h/o stool OB positive status - h/o SBO and ileus due to pain meds - h/o mildly elevated CEA # renal/ - recurrent UTI due to pseudomonas (culture on 07/09/2018) - s/p UTI due to MDR, CRE-klebsiella on 06/15/2018. S/p renally dosed amikacin for klebsiella in her urine culture (06/17-06/22/2018) - s/p UTI due to pseudomonas and ESBL+klebsiella on 06/09/2018, Pt took one dose of fosfomycin on 06/10/2018 and cipro 06/12-06/15/2018 - anasarca - started on HD on 05/15/2018, via Juan in R groin - recurrent NATHAN on CKD - 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 Her strain of CRE was sensitive to colistin, Avycaz, and Vabomere but resistant to Zerbaxa (reported on 05/19/2018) - metabolic acidosis - adrenal insufficiency - h/o vaginal bleed in 2018 - h/o colonization of urinary tract by ESBL+klebsiella, VRE - h/o recurrent, symptomatic UTI due to carbapenem-resistant kleb (MDR strain) per urine culture 10/04/17, 10/09/17, 10/21/2017, P took colistin (10/09/2017- 10/15/2017), fosfomycin for carbapenemase-producing klebsiella and VRE on 10/25/2017 and 10/28/2017 - h/o funguria - h/o urinary retention # bloodstream infections - Bacteremia d/t pseudomonas aeruginosa 07/09/18, 07/10/18, 07/11/18, 07/12/18 and 07/13/18. Probably associated with PICC because the blood culture from PICC and phlebotomy on 07/13/2018 both grew the same bacteria 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 improved. Probable manifes tation of endocarditis. Pt declined MRI on 08/06/2017 - h/o infection of R toes due to pseudomonas. coagulase negative Staph likely a colonizer - h/o intertrigo of the groin, resolved with nystatin powder - h/o scabies, locally crusted lesion over L scapula, s/p permethrin cream and pGT ivermectin on 08/11/2017, 08/12/2017, 08/19/2017. Repeat skin scraping on 08/21/2017 was negative for scabies # psych, neuro - decreased hearing b/l - s/p acute toxic metabolic encephalopathy - h/o critical illness polyneuropathy - anxiety/depression, bipolar d/o, seen by Psychiatry in the past - chronic pain syndrome - h/o medical non-compliance: she would refuse her medications, treatment and straight catheterization in 2018 # hematological, vascular - chronic anemia requiring blood transfusion intermittently - macrocytic anemia - aneurysmal dilatation of the distal aorta visualized on CT 06/15/2018 - PVD Recommendations: - ordered: repeat blood cultures daily until blood cultures clear, ultrasound of RUE to r/o thrombus/phlebitis, d/c PICC and send its tip for culture, CT abd/pel, change diggs catheter (last changed on 06/08/2018) - please order transthoracic echo to r/o endocarditis - continue amikacin IV (07/09/2018-). Pt had a strain of pseudomonas that was resistant to all except for aminoglycoside - add renally dosed cefepime (07/14/2018), because amikacin alone cannot clear bacteremia - Continue Vanco pGT (07/09/18/ - ) and metronidazole IV (07/09/18 - ) because Pt has h/o severe C diff colitis - if CT abd/pel does not show e/o intra-abdominal infection, wed can d/c metronidazole management d/w Pt and charge nurse (covering her RN Napoleon), JADE Arnold and Dr. Giron the critical care time I took to care for this Pt today was from from 1600 to 1630 Consultation Date/Type/Reason Admit Date/Time May 06, 2018 at 17:38 Initial Consult Date 05/10/18 Type of Consult ID Requesting Provider: ROLAND GIRON MD Date/Time of Note DATE: 07/14/18 TIME: 16:30 24 HR Interval Summary Subjective hx not possible: other (lethargic) Constitutional: other (Pt kept shaking her head) Detailed Summary Respiratory: shortness of breath Gastrointestinal: pain Genitourinary: other (FC) Musculoskeletal: other (functional quadriplegic) Exam/Review of Systems Exam Vitals Vital Signs Date Temp Pulse Resp B/P (MAP) Pulse Ox O2 O2 Flow FiO2 Time Delivery Rate 07/14/18 97.9 68 16 139/65 100 15:58 (89) 07/14/18 30 11:33 07/13/18 Trach 15:58 Collar Intake and Output 07/13/18 07/13/18 07/14/18 1515:00 23:00 07:00 IntakeIntake Total 100 ml 2031.4 ml 2080 ml OutputOutput Total 500 ml 550 ml BalanceBalance 100 ml 1531.4 ml 1530 ml Constitutional: frail Psych: other (lethargic) Eyes: nl conjunctiva, nl lids ENMT: nl external ears & nose, nl nasal mucosa & septum Neck: other (trach) Respiratory: diminished breath sounds Cardiovascular: regular rate and rhythm, nl pulses Gastrointestinal: bowel sounds, distended, tender (diffusely); No rebound or guarding Genitourinary - Female: other (FC) Musculoskeletal: No swelling Extremities: tenderness (LUE); No edema Neurological: lethargic Skin: ecchymosis Results Result Diagram: 07/14/1828 07/14/18727 Results 24hrs Laboratory Tests Test 07/13/18 19:16 07/13/18 20:43 07/13/18 23:42 07/14/18 06:07 Amikacin Level Trough Bedside Glucose 132 Amikacin Level Peak Lab Scanned Report REFERENCE LAB Test 07/14/18 07:28 White Blood Count 15.9 H Red Blood Count 2.84 L Hemoglobin 9.1 L Hematocrit 29.7 L Mean Corpuscular 104.6 H Volume Mean Corpuscular 32.0 Hemoglobin Mean Corpuscular 30.6 L Hemoglobin Concent Red Cell 22.6 H Distribution Width Platelet Count 222 Mean Platelet 10.6 H Volume Immature 0.800 H Granulocytes % Neutrophils % 86.8 H Lymphocytes % 5.8 L Monocytes % 4.2 Eosinophils % 2.1 Basophils % 0.3 Nucleated Red 0.0 Blood Cells % Immature 0.120 H Granulocytes # Neutrophils # 13.8 H Lymphocytes # 0.9 Monocytes # 0.7 Eosinophils # 0.3 Basophils # 0.0 Nucleated Red 0.0 Blood Cells # Sodium Level 142 Potassium Level 3.7 Chloride Level 108 Carbon Dioxide 21 Level Anion Gap 13 Blood Urea 115 H Nitrogen Creatinine 2.17 H Est Glomerular Filtrat Rate mL/min Glucose Level 118 Calcium Level 8.8 Phosphorus Level 2.4 L Magnesium Level 1.9 Medications Medication Current Medications IV Flush (NS 10 ml) 10 ml PRN IV ; Start 05/06/18 at 20:30 Zinc Sulfate (Zinc Sulfate) 220 mg DAILY GTB Last administered on 07/14/18 08:42; Admin Dose 220 MG; Start 05/07/18 at 09:00 Ondansetron HCl (Zofran Tab) 4 mg Q6H PRN GTB NAUSEA AND/OR VOMITING Last administered on 05/31/18 16:47; Admin Dose 4 MG; Start 05/07/18 at 00:15 Multivitamins (Multivitamin) 30 ml DAILY GTB Last administered on 07/14/18 08:42; Admin Dose 30 ML; Start 05/07/18 at 09:00 Miscellaneous Information (Pending Santyl Order For Wound Care) This patient goldman... PRN PRN XX WOUND CARE; Start 05/09/18 at 17:00 Famotidine (Pepcid) 20 mg DAILY PEG Last administered on 07/14/18 08:43; Admin Dose 20 MG; Start 05/23/18 at 09:00 Morphine Sulfate (morphine) 6 mg Q4H PRN PEG SEVERE PAIN LEVEL 7-10 Last admini stered on 07/08/18 09:45; Admin Dose 6 MG; Start 05/22/18 at 17:00 Acetaminophen (Tylenol Tab) 650 mg Q4H PRN PO MILD PAIN(1-3)OR ELEVATED TEMP Last administered on 07/06/18 21:25; Admin Dose 650 MG; Start 05/31/18 at 13:00 Metoclopramide HCl (Reglan) 5 mg Q6 IV Last administered on 07/14/18 12:57; Admin Dose 5 MG; Start 05/31/18 at 13:00 Collagenase (Santyl) 1 applic DAILY TOP Last administered on 07/13/18 08:51; Admin Dose 1 APPLIC; Start 06/01/18 at 09:00 Clonidine (Catapres) 0.1 mg Q6H PRN PO ELEVATED BLOOD PRESSURE Last administered on 07/09/18 09:08; Admin Dose 0.1 MG; Start 06/03/18 at 03:30 Bumetanide (Bumex) 1 mg BID DIURETICS GTB Last administered on 07/12/18 05:23; Admin Dose 1 MG; Start 06/11/18 at 18:00; Status Hold Collagenase (Santyl) 1 applic PRN PRN TOP WHEN SOILED; Start 06/13/18 at 01:00 Nystatin (Nystatin Powder) 1 applic BID TOP Last administered on 07/14/18at 08:43; Admin Dose 1 APPLIC; Start 06/13/18 at 14:00 Miscellaneous Information 1 ea NOTE XX ; Start 06/26/18 at 08:00 Dicyclomine HCl (Bentyl) 20 mg Q8 PO Last administered on 07/14/18 13:20; Admin Dose 20 MG; Start 06/27/18 at 22:00 Cholestyramine Resin (Questran Light) 4 gm 0600,1200,1800,2300 GTB Last administered on 07/14/18 12:56; Admin Dose 4 GM; Start 06/27/18 at 18:00 Lorazepam (Ativan) 0.5 mg Q4 PRN IV ANXIETY Last administered on 07/13/18 11:07; Admin Dose 0.5 MG; Start 07/01/18 at 14:00 Amiodarone HCl (Cordarone) 200 mg Q8 GTB Last administered on 07/14/18 13:20; Admin Dose 200 MG; Start 07/05/18 at 22:00 Metoprolol Tartrate (Lopressor) 50 mg Q8 GTB Last administered on 07/14/18 13:20; Admin Dose 50 MG; Start 07/05/18 at 22:00 Citric Acid/ Sodium Citrate (Bicitra) 60 ml Q8 PO Last administered on 07/14/18 13:20; Admin Dose 60 ML; Start 07/09/18 at 14:00 Amikacin Sulfate (Amikacin Iv Per Pharmacy) 1 ea NOTE XX ; Start 07/09/18 at 17:30 Vancomycin HCl (Vancomycin Oral Syringe) 125 mg Q6 GTB Last administered on 07/14/18 12:56; Admin Dose 125 MG; Start 07/09/18 at 18:00 Metronidazole 100 ml @ 100 mls/hr Q8 IVPB Last administered on 07/14/18 13:19; Admin Dose 100 MLS/HR; Start 07/09/18 at 22:00 Miscellaneous Information (*Order Clarification Bulletin) MEDICATION REQUIRES CLARIFICATI... Q8H XX ; Start 07/13/18 at 01:30 Epoetin Zen-epbx (Retacrit (Non-Esrd)) 10,000 unit MoWeFr@1700 SC Last administered on 07/13/18at 21:00; Admin Dose 10,000 UNIT; Start 07/13/18 at 17:00 Miscellaneous Information (*Order Clarification Bulletin) MEDICATION REQUIRES CLARIFICATI... Q8H XX ; Start 07/13/18 at 14:30; Stop 07/15/18 at 14:29 Amikacin Sulfate 300 mg/Sodium Chloride 101.2 ml @ 101.4 mls/ hr Q48H IVPB ; Start 07/14/18 at 23:00 CELESTINE MURPHY M.D. July 14, 2018 16:45
--- NOTE | 2018-07-14 19:28 | PN ---
Date/Time of Note Date/Time of Note DATE: 07/14/18 TIME: 19:24 Assessment/Plan VTE Prophylaxis Risk score (from [facility] [place]0 risk: 9 SCD applied (from [facility] [place]): Yes Pharmacological prophylaxis: NA/contraindicated Pharm contraindication: anticoag not tolerated Lines/Catheters IV Catheter Type (from [facility]): PICC Line Central line still needed: Yes Urinary Cath still in place: Yes Reason Cath still needed: urinary retention Assessment/Plan Hospital Course Patient with persistent bacteremia due to Pseudomonas will DC PICC line, continue current antibiotics per ID. Assessment/Plan -Persistent leukocytosis with Pseudomonas bacteremia, continue antibiotics per ID. -MDR Klebsiella urinary tract infection, completed treatment with amikacin. Dr. Doyle is following in infectious consultation. -Atrial fibrillation was rapid ventricular response, patient remains in sinus rhythm continue metoprolol and amiodarone. Dr. Scanlon is following in cardiology consultation. -S/p septic shock secondary to urinary tract infection, anterior neck soft tissue infection, and C. difficile colitis. -C-diff colitis,resolved. -Acute respiratory failure requiring intubation and ventilatory support. Dr. Lambert is following in pulmonology consultation. -S/p tracheostomy on 05/29/18. -Acute kidney injury on chronic kidney disease. Started on HD this admission with recovery of renal function. Dr. Mckeon is following in nephrology consultation. -Anemia of chronic inflammation, stool for OB is negative, status post blood transfusion. Continue Epogen. -Metabolic acidosis, resolved. -Acute diastolic congestive heart failure. -Paroxysmal atrial fibrillation -COPD -Dysphagia with PEG. -G-tube mild malfunction, changed by GI Dr. Carolina is following in gastroenterology consultation. -Obesity -Critical care myopathy Further recommendations based on clinical course. Plan of care discussed with Dr. Eisenberg. Result Diagram: 07/14/18 0728 07/14/18 0728 Results 24hrs Laboratory Tests Test 07/13/18 20:43 07/13/18 23:42 07/14/18 06:07 07/14/18 07:28 Bedside Glucose 132 Amikacin Level Peak Lab Scanned Report REFERENCE LAB White Blood Count 15.9 H Red Blood Count 2.84 L Hemoglobin 9.1 L Hematocrit 29.7 L Mean Corpuscular 104.6 H Volume Mean Corpuscular 32.0 Hemoglobin Mean Corpuscular 30.6 L Hemoglobin Concent Red Cell 22.6 H Distribution Width Platelet Count 222 Mean Platelet 10.6 H Volume Immature 0.800 H Granulocytes % Neutrophils % 86.8 H Lymphocytes % 5.8 L Monocytes % 4.2 Eosinophils % 2.1 Basophils % 0.3 Nucleated Red 0.0 Blood Cells % Immature 0.120 H Granulocytes # Neutrophils # 13.8 H Lymphocytes # 0.9 Monocytes # 0.7 Eosinophils # 0.3 Basophils # 0.0 Nucleated Red 0.0 Blood Cells # Sodium Level 142 Potassium Level 3.7 Chloride Level 108 Carbon Dioxide 21 Level Anion Gap 13 Blood Urea 115 H Nitrogen Creatinine 2.17 H Est Glomerular Filtrat Rate mL/min Glucose Level 118 Calcium Level 8.8 Phosphorus Level 2.4 L Magnesium Level 1.9 Exam/Review of Systems Exam Vitals Vital Signs Date Temp Pulse Resp B/P (MAP) Pulse Ox O2 O2 Flow FiO2 Time Delivery Rate 07/14/18 71 25 100 30 17:26 07/14/18 97.9 139/65 15:58 (89) 07/13/18 Trach 15:58 Collar Intake and Output 07/13/18 07/13/18 07/14/18 1515:00 23:00 07:00 IntakeIntake Total 100 ml 2031.4 ml 2080 ml OutputOutput Total 500 ml 550 ml BalanceBalance 100 ml 1531.4 ml 1530 ml Exam Constitutional: alert, oriented Neck: other (Tracheostomy) Respiratory: diminished breath sounds Cardiovascular: regular rate and rhythm Gastrointestinal: soft, non-tender, other (G-tube) Extremities: normal pulses Neurological: nl mental status Results Results 24hrs Laboratory Tests Test 07/13/18 20:43 07/13/18 23:42 07/14/18 06:07 07/14/18 07:28 Bedside Glucose 132 Amikacin Level Peak Lab Scanned Report REFERENCE LAB White Blood Count 15.9 H Red Blood Count 2.84 L Hemoglobin 9.1 L Hematocrit 29.7 L Mean Corpuscular 104.6 H Volume Mean Corpuscular 32.0 Hemoglobin Mean Corpuscular 30.6 L Hemoglobin Concent Red Cell 22.6 H Distribution Width Platelet Count 222 Mean Platelet 10.6 H Volume Immature 0.800 H Granulocytes % Neutrophils % 86.8 H Lymphocytes % 5.8 L Monocytes % 4.2 Eosinophils % 2.1 Basophils % 0.3 Nucleated Red 0.0 Blood Cells % Immature 0.120 H Granulocytes # Neutrophils # 13.8 H Lymphocytes # 0.9 Monocytes # 0.7 Eosinophils # 0.3 Basophils # 0.0 Nucleated Red 0.0 Blood Cells # Sodium Level 142 Potassium Level 3.7 Chloride Level 108 Carbon Dioxide 21 Level Anion Gap 13 Blood Urea 115 H Nitrogen Creatinine 2.17 H Est Glomerular Filtrat Rate mL/min Glucose Level 118 Calcium Level 8.8 Phosphorus Level 2.4 L Magnesium Level 1.9 Medications Medication Current Medications IV Flush (NS 10 ml) 10 ml PRN IV ; Start 05/06/18 at 20:30 Zinc Sulfate (Zinc Sulfate) 220 mg DAILY GTB Last administered on 07/14/18 08:42; Admin Dose 220 MG; Start 05/07/18 at 09:00 Ondansetron HCl (Zofran Tab) 4 mg Q6H PRN GTB NAUSEA AND/OR VOMITING Last administered on 05/31/18 16:47; Admin Dose 4 MG; Start 05/07/18 at 00:15 Multivitamins (Multivitamin) 30 ml DAILY GTB Last administered on 07/14/18 08:42; Admin Dose 30 ML; Start 05/07/18 at 09:00 Miscellaneous Information (Pending Santyl Order For Wound Care) This patient goldman... PRN PRN XX WOUND CARE; Start 05/09/18 at 17:00 Famotidine (Pepcid) 20 mg DAILY PEG Last administered on 07/14/18 08:43; Admin Dose 20 MG; Start 05/23/18 at 09:00 Morphine Sulfate (morphine) 6 mg Q4H PRN PEG SEVERE PAIN LEVEL 7-10 Last administered on 07/08/18 09:45; Admin Dose 6 MG; Start 05/22/18 at 17:00 Acetaminophen (Tylenol Tab) 650 mg Q4H PRN PO MILD PAIN(1-3)OR ELEVATED TEMP Last administered on 07/06/18 21:25; Admin Dose 650 MG; Start 05/31/18 at 13:00 Metoclopramide HCl (Reglan) 5 mg Q6 IV Last administered on 07/14/18 17:30; Admin Dose 5 MG; Start 05/31/18 at 13:00 Collagenase (Santyl) 1 applic DAILY TOP Last administered on 07/13/18 08:51; Admin Dose 1 APPLIC; Start 06/01/18 at 09:00 Clonidine (Catapres) 0.1 mg Q6H PRN PO ELEVATED BLOOD PRESSURE Last administered on 07/09/18 09:08; Admin Dose 0.1 MG; Start 06/03/18 at 03:30 Bumetanide (Bumex) 1 mg BID DIURETICS GTB Last administered on 07/12/18 05 :23; Admin Dose 1 MG; Start 06/11/18 at 18:00; Status Hold Collagenase (Santyl) 1 applic PRN PRN TOP WHEN SOILED; Start 06/13/18 at 01:00 Nystatin (Nystatin Powder) 1 applic BID TOP Last administered on 07/14/18 08:43; Admin Dose 1 APPLIC; Start 06/13/18 at 14:00 Miscellaneous Information 1 ea NOTE XX ; Start 06/26/18 at 08:00 Dicyclomine HCl (Bentyl) 20 mg Q8 PO Last administered on 07/14/18 13:20; Admin Dose 20 MG; Start 06/27/18 at 22:00 Cholestyramine Resin (Questran Light) 4 gm 0600,1200,1800,2300 GTB Last administered on 07/14/18 17:30; Admin Dose 4 GM; Start 06/27/18 at 18:00 Lorazepam (Ativan) 0.5 mg Q4 PRN IV ANXIETY Last administered on 07/13/18 11:07; Admin Dose 0.5 MG; Start 07/01/18 at 14:00 Amiodarone HCl (Cordarone) 200 mg Q8 GTB Last administered on 07/14/18 13:20; Admin Dose 200 MG; Start 07/05/18 at 22:00 Metoprolol Tartrate (Lopressor) 50 mg Q8 GTB Last administered on 07/14/18 13:20; Admin Dose 50 MG; Start 07/05/18 at 22:00 Citric Acid/ Sodium Citrate (Bicitra) 60 ml Q8 PO Last administered on 07/14/18 13:20; Admin Dose 60 ML; Start 07/09/18 at 14:00 Amikacin Sulfate (Amikacin Iv Per Pharmacy) 1 ea NOTE XX ; Start 07/09/18 at 17:30 Vancomycin HCl (Vancomycin Oral Syringe) 125 mg Q6 GTB Last administered on 07/14/18at 17:30; Admin Dose 125 MG; Start 07/09/18 at 18:00 Metronidazole 100 ml @ 100 mls/hr Q8 IVPB Last administered on 07/14/18at 1 3:19; Admin Dose 100 MLS/HR; Start 07/09/18 at 22:00 Miscellaneous Information (*Order Clarification Bulletin) MEDICATION REQUIRES CLARIFICATI... Q8H XX ; Start 07/13/18 at 01:30 Epoetin Zen-epbx (Retacrit (Non-Esrd)) 10,000 unit MoWeFr@1700 SC Last administered on 07/13/18at 21:00; Admin Dose 10,000 UNIT; Start 07/13/18 at 17:00 Miscellaneous Information (*Order Clarification Bulletin) MEDICATION REQUIRES CLARIFICATI... Q8H XX ; Start 07/13/18 at 14:30; Stop 07/15/18 at 14:29 Amikacin Sulfate 300 mg/Sodium Chloride 101.2 ml @ 101.4 mls/ hr Q48H IVPB ; Start 07/14/18 at 23:00 Cefepime HCl 50 ml @ 100 mls/hr Q24H IVPB ; Start 07/14/18 at 18:30 GRISELDA DENNIS July 14, 2018 19:28
[2018-07-14] MEDS: CEFEPIME 2GM/50 ML (PMX) 50 ML IVPB SCH (21:03)
[2018-07-15] VITALS (22 sets, daily range): BP systolic 124–149; BP diastolic 68–81; PULSE 64–95; RESP 16–29
[2018-07-15] MEDS: AMIKACIN 300 MG in SOD CHLORIDE 0.9% 100 ML IVPB SCH (00:52)
[2018-07-15] MEDS: VANCOMYCIN HCL 250 MG/5ML POSYG GTB SCH ×5 (00:52→17:53)
[2018-07-15] MEDS: METOCLOPRAMIDE 10 MG INJ IV SCH ×4 (00:52→17:53)
[2018-07-15] MEDS: [UNRECOGNIZED DRUG - REMARK] XX SCH ×3 (00:53→16:47)
[2018-07-15] MEDS: morphine LIQ (10 MG/5 ML) CUP PEG PRN ×3 (01:10→21:05)
[2018-07-15] MEDS: CITRIC ACID/NA CITRATE 30 ML CUP PO SCH ×3 (05:16→20:57)
[2018-07-15] MEDS: DICYCLOMINE 10 MG CAP PO SCH ×3 (05:17→20:59)
[2018-07-15] MEDS: CHOLESTYRAMINE (LIGHT) 4 GM PACKET GTB SCH ×4 (05:17→20:58)
[2018-07-15] MEDS: METOPROLOL 50 MG TAB GTB SCH ×3 (05:18→21:07)
[2018-07-15] MEDS: AMIODARONE 200 MG TAB GTB SCH ×3 (05:18→21:07)
[2018-07-15] MEDS: Metronidazole 500 MG in NS 100 ML IVPB SCH ×2 (05:38→13:55)
[2018-07-15] MEDS ORDERED: METOLAZONE 2.5 MG TAB PO ONE (09:30)
[2018-07-15] MEDS: NYSTATIN 30 GM POWDER BTL TOP SCH (09:31)
[2018-07-15] MEDS: ZINC SULFATE 220 MG CAP GTB SCH (09:31)
[2018-07-15] MEDS: BALSAM PERU/CASTOR OIL 60 GM TUBE TOP SCH ×2 (09:32→20:56)
[2018-07-15] MEDS: MULTIVITAMINS 30 ML CUP GTB SCH (09:32)
[2018-07-15] MEDS: FAMOTIDINE 20 MG TAB PEG SCH (09:32)
--- NOTE | 2018-07-15 11:00 | PN ---
DATE: 07/15/2018 SUBJECTIVE: The patient is stable. No events overnight. OBJECTIVE: VITAL SIGNS: Blood pressure is 144/76, pulse 66, respirations 22, temperature 97.8. HEENT: Head is normocephalic. NECK: Supple. HEART: Regular rate. LUNGS: Show diminished breath sounds at the base. ABDOMEN: Soft, nontender to palpation without rebound or guarding. EXTREMITIES: Negative for clubbing, cyanosis, positive edema. DERMATOLOGIC: No rashes. MUSCULOSKELETAL: No joint effusion. NEUROLOGIC: No change in exam. MEDICATIONS: The patient's medications have been reviewed. LABORATORY DATA: Has been reviewed. Microbiology was reviewed. Repeat cultures on 07/13 grew out G lizabeth-negative rods. ASSESSMENT AND PLAN: 1. Nonoliguric acute kidney injury with previous baseline creatinine of 2.0 mg/dL. Etiology of NATHAN was initially due to acute tubular necrosis. Patient is status post hemodialysis. The patient showe d renal recovery. However, in the last 7 to 10 days, the patient had a decline in renal function. Th is may be due to sepsis, cardiorenal syndrome, antibiotics. The patient's renal function appears to be stabilizing again. Will continue current treatment plans, supportive care, renally dose all meds. No immediate need for renal replacement therapy. 2. Hypernatremia, improving. Continue free water flushes. 3. Hypokalemia. Continue to monitor and replace as needed. 4. Hypomagnesemia. Continue to monitor and replete. 5. Metabolic acidosis secondary to chronic kidney disease. Continue Bicitra. 6. Volume overload. Will give the patient intermittent diuretic therapy. We will give a dose of me tolazone today 5 mg x1. 7. Anemia. Monitor hemoglobin and hematocrit levels. Continue Epogen. 8. Ventilatory dependent respiratory failure. Vent settings have been reviewed. Continue to monito r. 9. Sepsis. The patient's repeat blood cultures were positive. Will continue antibiotic therapy per infectious disease. 10. Status post diff. 11. Dysphagia continue G-tube feeding. 12. Encephalopathy. Continue to monitor. 13. Lower extremity wounds. Continue wound care. Dictated By: JEANA FINE/NTS Conf#: [id number] DID#: [id number] CC: QUINTEN UMAÑA MD; ROLAND GIRON MD;*EndCC*
[2018-07-15] MEDS ORDERED: VANCOMYCIN IV PER PHARMACY XX SCH (13:30)
--- NOTE | 2018-07-15 13:39 | CONS ---
Assessment/Plan Assessment/Plan Hospital Course (Demo Recall) Septic as well as hemorrhagic shock Acute respiratory failure status post intubation and repeat tracheostomy Acute blood loss anemia History of respiratory failure status post decannulation Preserved ejection fraction echocardiogram 05/10/2018 Paroxysmal atrial fibrillation Acute kidney injury -Blood pressure trend overall improved. Continue beta-tin as tolerated -Patient with paroxysmal atrial fibrillation, currently in sinus rhythm -Continue amiodarone as tolerated -Vent management as per pulmonary -Fluid management and electrolytes as per renal -Antibiotics as per infectious disease -No anticoagulation given recurrent anemia requiring blood transfusions -Given recurrent bacteremia, patient for repeat echocardiogram Consultation Date/Type/Reason Admit Date/Time May 06, 2018 at 17:38 Initial Consult Date 05/10/18 Type of Consult Cardiology Requesting Provider: ROLAND GIRON MD Date/Time of Note DATE: 07/15/18 TIME: 13:37 24 HR Interval Summary Free Text/Dictation Denies shortness of breath, palpitations Exam/Review of Systems Vital Signs Vitals Vital Signs Date Temp Pulse Resp B/P (MAP) Pulse Ox O2 O2 Flow FiO2 Time Delivery Rate 07/15/18 64 12:00 07/15/18 98.6 25 124/69 99 Trach 11:47 (87) Collar 07/15/18 30 11:05 Intake and Output 07/14/18 07/14/18 07/15/18 1515:00 23:00 07:00 IntakeIntake Total 100 ml 680 ml 1180 ml OutputOutput Total 700 ml 550 ml BalanceBalance 100 ml -20 ml 630 ml Exam Constitutional: alert (Following commands, no apparent distress) Head: normocephalic Respiratory: other (Coarse breath sounds bilaterally, no wheezing) Cardiovascular: regular rate and rhythm (S1-S2 heard) Gastrointestinal: soft, non-tender, bowel sounds Extremities: edema Labs Result Diagram: 07/15/18 0611 07/15/18 0611 Results 24hrs Laboratory Tests Test 07/15/18 06:11 White Blood Count 13.3 H Red Blood Count 2.76 L Hemoglobin 8.9 L Hematocrit 28.8 L Mean Corpuscular Volume 104.3 H Mean Corpuscular Hemoglobin 32.2 Mean Corpuscular Hemoglobin Concent 30.9 L Red Cell Distribution Width 22.5 H Platelet Count 199 Mean Platelet Volume 10.4 Immature Granulocytes % 0.500 H Neutrophils % 83.3 H Lymphocytes % 7.6 L Monocytes % 4.7 Eosinophils % 3.5 Basophils % 0.4 Nucleated Red Blood Cells % 0.0 Immature Granulocytes # 0.070 H Neutrophils # 11.1 H Lymphocytes # 1.0 Monocytes # 0.6 Eosinophils # 0.5 Basophils # 0.1 Nucleated Red Blood Cells # 0.0 Sodium Level 140 Potassium Level 3.6 Chloride Level 107 Carbon Dioxide Level 20 L Anion Gap 13 Blood Urea Nitrogen 108 H Creatinine 2.14 H Est Glomerular Filtrat Rate mL/min Glucose Level 103 Calcium Level 9.0 Phosphorus Level 2.8 Magnesium Level 1.8 Medications Medications Current Medications IV Flush (NS 10 ml) 10 ml PRN IV ; Start 05/06/18 at 20:30 Zinc Sulfate (Zinc Sulfate) 220 mg DAILY GTB Last administered on 07/15/18 09:31; Admin Dose 220 MG; Start 05/07/18 at 09:00 Ondansetron HCl (Zofran Tab) 4 mg Q6H PRN GTB NAUSEA AND/OR VOMITING Last administered on 05/31/18 16:47; Admin Dose 4 MG; Start 05/07/18 at 00:15 Multivitamins (Multivitamin) 30 ml DAILY GTB Last administered on 07/15/18 09:32; Admin Dose 30 ML; Start 05/07/18 at 09:00 Miscellaneous Information (Pending Santyl Order For Wound Care) This patient goldman... PRN PRN XX WOUND CARE; Start 05/09/18 at 17:00 Famotidine (Pepcid) 20 mg DAILY PEG Last administered on 07/15/18 09:32; Admin Dose 20 MG; Start 05/23/18 at 09:00 Morphine Sulfate (morphine) 6 mg Q4H PRN PEG SEVERE PAIN LEVEL 7-10 Last administered on 07/15/18 05:24; Admin Dose 6 MG; Start 05/22/18 at 17:00 Acetaminophen (Tylenol Tab) 650 mg Q4H PRN PO MILD PAIN(1-3)OR ELEVATED TEMP Last administered on 07/06/18 21:25; Admin Dose 650 MG; Start 05/31/18 at 13:00 Metoclopramide HCl (Reglan) 5 mg Q6 IV Last administered on 07/15/18 12:25; Admin Dose 5 MG; Start 05/31/18 at 13:00 Collagenase (Santyl) 1 applic DAILY TOP Last administered on 07/14/18 21:04; Admin Dose 1 APPLIC; Start 06/01/18 at 09:00 Clonidine (Catapres) 0.1 mg Q6H PRN PO ELEVATED BLOOD PRESSURE Last administered on 07/09/18 09:08; Admin Dose 0.1 MG; Start 06/03/18 at 03:30 Bumetanide (Bumex) 1 mg BID DIURETICS GTB Last administered on 07/12/18 05:23; Admin Dose 1 MG; Start 06/11/18 at 18:00; Status Hold Nystatin (Nystatin Powder) 1 applic BID TOP Last administered on 07/15/18 09:31; Admin Dose 1 APPLIC; Start 06/13/18 at 14:00 Miscellaneous Information 1 ea NOTE XX ; Start 06/26/18 at 08:00 Dicyclomine HCl (Bentyl) 20 mg Q8 PO Last administered on 07/15/18 05:17; Admin Dose 20 MG; Start 06/27/18 at 22:00 Cholestyramine Resin (Questran Light) 4 gm 0600,1200,1800,2300 GTB Last administered on 07/15/18 12:25; Admin Dose 4 GM; Start 06/27/18 at 18:00 Lorazepam (Ativan) 0.5 mg Q4 PRN IV ANXIETY Last administered on 07/13/18 11:07; Admin Dose 0.5 MG; Start 07/01/18 at 14:00 Amiodarone HCl (Cordarone) 200 mg Q8 GTB Last administered on 07/15/18 05:18; Admin Dose 200 MG; Start 07/05/18 at 22:00 Metoprolol Tartrate (Lopressor) 50 mg Q8 GTB Last administered on 07/15/18 05:18; Admin Dose 50 MG; Start 07/05/18 at 22:00 Citric Acid/ Sodium Citrate (Bicitra) 60 ml Q8 PO Last administered on 07/15/18 05:16; Admin Dose 60 ML; Start 07/09/18 at 14:00 Amikacin Sulfate (Amikacin Iv Per Pharmacy) 1 ea NOTE XX ; Start 07/09/18 at 17:30 Vancomycin HCl (Vancomycin Oral Syringe) 125 mg Q6 GTB Last administered on 07/15/18at 05:19; Admin Dose 125 MG; Start 07/09/18 at 18:00 Metronidazole 100 ml @ 100 mls/hr Q8 IVPB Last administered on 07/15/18at 05:38; Admin Dose 100 MLS/HR; Start 07/09/18 at 22:00 Miscellaneous Information (*Order Clarification Bulletin) MEDICATION REQUIRES CLARIFICATI... Q8H XX ; Start 07/13/18 at 01:30 Epoetin Zen-epbx (Retacrit (Non-Esrd)) 10,000 unit MoWeFr@1700 SC Last adm inistered on 07/13/18at 21:00; Admin Dose 10,000 UNIT; Start 07/13/18 at 17:00 Miscellaneous Information (*Order Clarification Bulletin) MEDICATION REQUIRES CLARIFICATI... Q8H XX ; Start 07/13/18 at 14:30; Stop 07/15/18 at 14:29 Amikacin Sulfate 300 mg/Sodium Chloride 101.2 ml @ 101.4 mls/ hr Q48H IVPB Last administered on 07/15/18at 00:52; Admin Dose 101.4 MLS/HR; Start 07/14/18 at 23:00 Cefepime HCl 50 ml @ 100 mls/hr Q24H IVPB Last administered on 07/14/18at 21:03; Admin Dose 100 MLS/HR; Start 07/14/18 at 18:30 Vancomycin HCl (Vanco Iv Per Pharmacy) VANCOMYCIN PER PHARMACY PER PROTOCOL XX ; Start 07/15/18 at 13:30; Status Evangelista Oswald DO July 15, 2018 13:39
--- NOTE | 2018-07-15 14:12 | PN ---
Date/Time of Note Date/Time of Note DATE: 07/15/18 TIME: 14:10 Assessment/Plan VTE Prophylaxis Risk score (from [facility] [place]0 risk: 5 SCD applied (from [facility] [place]): Yes Pharmacological prophylaxis: NA/contraindicated Pharm contraindication: anticoag not tolerated Lines/Catheters IV C[facility]ter Type ([facility] Peripheral IV Urinary Cath still in place: Yes Reason Cath still needed: urinary retention Assessment/Plan Hospital Course PICC line discontinued, continue IV fluids and antibiotics via peripheral line, pending TTE to rule out endocarditis. Patient is awake alert remains afebrile, continues on vent support. Assessment/Plan -Persistent leukocytosis with Pseudomonas bacteremia, continue antibiotics per ID. -MDR Klebsiella urinary tract infection, completed treatment with amikacin. Dr. Doyle is following in infectious consultation. -Atrial fibrillation was rapid ventricular response, patient remains in sinus rhythm continue metoprolol and amiodarone. Dr. Scanlon is following in cardiology consultation. -S/p septic shock secondary to urinary tract infection, anterior neck soft tissue infection, and C. difficile colitis. -C-diff colitis,resolved. -Acute respiratory failure requiring intubation and ventilatory support. Dr. Lambert is following in pulmonology consultation. -S/p tracheostomy on 05/29/18. -Acute kidney injury on chronic kidney disease. Started on HD this admission with recovery of renal function. Dr. Mckeon is following in nephrology consultation. -Anemia of chronic inflammation, stool for OB is negative, status post blood transfusion. Continue Epogen. -Metabolic acidosis, resolved. -Acute diastolic congestive heart failure. -Paroxysmal atrial fibrillation -COPD -Dysphagia with PEG. -G-tube mild malfunction, changed by GI Dr. Carolina is following in gastroentero logy consultation. -Obesity -Critical care myopathy Further recommendations based on clinical course. Plan of care discussed with Dr. Eisenberg. Result Diagram: 07/15/18 0611 07/15/18 0611 Results 24hrs Laboratory Tests Test 07/15/18 06:11 White Blood Count 13.3 H Red Blood Count 2.76 L Hemoglobin 8.9 L Hematocrit 28.8 L Mean Corpuscular Volume 104.3 H Mean Corpuscular Hemoglobin 32.2 Mean Corpuscular Hemoglobin Concent 30.9 L Red Cell Distribution Width 22.5 H Platelet Count 199 Mean Platelet Volume 10.4 Immature Granulocytes % 0.500 H Neutrophils % 83.3 H Lymphocytes % 7.6 L Monocytes % 4.7 Eosinophils % 3.5 Basophils % 0.4 Nucleated Red Blood Cells % 0.0 Immature Granulocytes # 0.070 H Neutrophils # 11.1 H Lymphocytes # 1.0 Monocytes # 0.6 Eosinophils # 0.5 Basophils # 0.1 Nucleated Red Blood Cells # 0.0 Sodium Level 140 Potassium Level 3.6 Chloride Level 107 Carbon Dioxide Level 20 L Anion Gap 13 Blood Urea Nitrogen 108 H Creatinine 2.14 H Est Glomerular Filtrat Rate mL/min Glucose Level 103 Calcium Level 9.0 Phosphorus Level 2.8 Magnesium Level 1.8 Exam/Review of Systems Exam Vitals Vital Signs Date Temp Pulse Resp B/P (MAP) Pulse Ox O2 O2 Flow FiO2 Time Delivery Rate 07/15/18 64 12:00 07/15/18 98.6 25 124/69 99 Trach 11:47 (87) Collar 07/15/18 30 11:05 Intake and Output 07/14/18 07/14/18 07/15/18 1515:00 23:00 07:00 IntakeIntake Total 100 ml 680 ml 1180 ml OutputOutput Total 700 ml 550 ml BalanceBalance 100 ml -20 ml 630 ml Exam Constitutional: alert, oriented Neck: other (Tracheostomy) Respiratory: diminished breath sounds Cardiovascular: regular rate and rhythm Gastrointestinal: soft, non-tender, other (G-tube) Extremities: normal pulses Neurological: nl mental status Results Results 24hrs Laboratory Tests Test 07/15/18 06:11 White Blood Count 13.3 H Red Blood Count 2.76 L Hemoglobin 8.9 L Hematocrit 28.8 L Mean Corpuscular Volume 104.3 H Mean Corpuscular Hemoglobin 32.2 Mean Corpuscular Hemoglobin Concent 30.9 L Red Cell Distribution Width 22.5 H Platelet Count 199 Mean Platelet Volume 10.4 Immature Granulocytes % 0.500 H Neutrophils % 83.3 H Lymphocytes % 7.6 L Monocytes % 4.7 Eosinophils % 3.5 Basophils % 0.4 Nucleated Red Blood Cells % 0.0 Immature Granulocytes # 0.070 H Neutrophils # 11.1 H Lymphocytes # 1.0 Monocytes # 0.6 Eosinophils # 0.5 Basophils # 0.1 Nucleated Red Blood Cells # 0.0 Sodium Level 140 Potassium Level 3.6 Chloride Level 107 Carbon Dioxide Level 20 L Anion Gap 13 Blood Urea Nitrogen 108 H Creatinine 2.14 H Est Glomerular Filtrat Rate mL/min Glucose Level 103 Calcium Level 9.0 Phosphorus Level 2.8 Magnesium Level 1.8 Medications Medication Current Medications IV Flush (NS 10 ml) 10 ml PRN IV ; Start 05/06/18 at 20:30 Zinc Sulfate (Zinc Sulfate) 220 mg DAILY GTB Last administered on 07/15/18 09:31; Admin Dose 220 MG; Start 05/07/18 at 09:00 Ondansetron HCl (Zofran Tab) 4 mg Q6H PRN GTB NAUSEA AND/OR VOMITING Last adm inistered on 05/31/18 16:47; Admin Dose 4 MG; Start 05/07/18 at 00:15 Multivitamins (Multivitamin) 30 ml DAILY GTB Last administered on 07/15/18 09:32; Admin Dose 30 ML; Start 05/07/18 at 09:00 Miscellaneous Information (Pending Santyl Order For Wound Care) This patient goldman... PRN PRN XX WOUND CARE; Start 05/09/18 at 17:00 Famotidine (Pepcid) 20 mg DAILY PEG Last administered on 07/15/18 09:32; Admin Dose 20 MG; Start 05/23/18 at 09:00 Morphine Sulfate (morphine) 6 mg Q4H PRN PEG SEVERE PAIN LEVEL 7-10 Last administered on 07/15/18 05:24; Admin Dose 6 MG; Start 05/22/18 at 17:00 Acetaminophen (Tylenol Tab) 650 mg Q4H PRN PO MILD PAIN(1-3)OR ELEVATED TEMP Last administered on 07/06/18 21:25; Admin Dose 650 MG; Start 05/31/18 at 13:00 Metoclopramide HCl (Reglan) 5 mg Q6 IV Last administered on 07/15/18 12:25; Admin Dose 5 MG; Start 05/31/18 at 13:00 Collagenase (Santyl) 1 applic DAILY TOP Last administered on 07/14/18 21:04; Admin Dose 1 APPLIC; Start 06/01/18 at 09:00 Clonidine (Catapres) 0.1 mg Q6H PRN PO ELEVATED BLOOD PRESSURE Last administered on 07/09/18 09:08; Admin Dose 0.1 MG; Start 06/03/18 at 03:30 Bumetanide (Bumex) 1 mg BID DIURETICS GTB Last administered on 07/12/18at 05:23; Admin Dose 1 MG; Start 06/11/18 at 18:00; Status Hold Miscellaneous Information 1 ea NOTE XX ; Start 06/26/18 at 08:00 Dicyclomine HCl (Bentyl) 20 mg Q8 PO Last administered on 07/15/18 13:54; Admin Dose 20 MG; Start 06/27/18 at 22:00 Cholestyramine Resin (Questran Light) 4 gm 0600,1200,1800,2300 GTB Last administered on 07/15/18 12:25; Admin Dose 4 GM; Start 06/27/18 at 18:00 Lorazepam (Ativan) 0.5 mg Q4 PRN IV ANXIETY Last administered on 07/13/18at 11:07; Admin Dose 0.5 MG; Start 07/01/18 at 14:00 Amiodarone HCl (Cordarone) 200 mg Q8 GTB Last administered on 07/15/18 13:54; Admin Dose 200 MG; Start 07/05/18 at 22:00 Metoprolol Tartrate (Lopressor) 50 mg Q8 GTB Last administered on 07/15/18 13:54; Admin Dose 50 MG; Start 07/05/18 at 22:00 Citric Acid/ Sodium Citrate (Bicitra) 60 ml Q8 PO Last administered on 07/15/18 13:55; Admin Dose 60 ML; Start 07/09/18 at 14:00 Amikacin Sulfate (Amikacin Iv Per Pharmacy) 1 ea NOTE XX ; Start 07/09/18 at 17:30 Vancomycin HCl (Vancomycin Oral Syringe) 125 mg Q6 GTB Last administered on 07/15/18 13:53; Admin Dose 125 MG; Start 07/09/18 at 18:00 Metronidazole 100 ml @ 100 mls/hr Q8 IVPB Last administered on 07/15/18 13:55; Admin Dose 100 MLS/HR; Start 07/09/18 at 22:00 Miscellaneous Information (*Order Clarification Bulletin) MEDICATION REQUIRES CLARIFICATI... Q8H XX ; Start 07/13/18 at 01:30 Epoetin Zen-epbx (Retacrit (Non-Esrd)) 10,000 unit MoWeFr@1700 SC Last administered on 07/13/18at 21:00; Admin Dose 10,000 UNIT; Start 07/13/18 at 17:00 Miscellaneous Information (*Order Clarification Bulletin) MEDICATION REQUIRES CLARIFICATI... Q8H XX ; Start 07/13/18 at 14:30; Stop 07/15/18 at 14:29 Amikacin Sulfate 300 mg/Sodium Chloride 101.2 ml @ 101.4 mls/ hr Q48H IVPB Last administered on 07/15/18at 00:52; Admin Dose 101.4 MLS/HR; Start 07/14/18 at 23:00 Cefepime HCl 50 ml @ 100 mls/hr Q24H IVPB Last administered on 07/14/18at 21:03; Admin Dose 100 MLS/HR; Start 07/14/18 at 18:30 Vancomycin HCl (Vanco Iv Per Pharmacy) VANCOMYCIN PER PHARMACY PER PROTOCOL XX ; Start 07/15/18 at 13:30 GRISELDA DENNIS July 15, 2018 14:12
[2018-07-15] MEDS ORDERED: VANCOMYCIN HCL 1.75 GM in SOD CHLORIDE 0.9% 500 ML IVPB SCH (14:30)
--- NOTE | 2018-07-15 15:08 | CONS ---
Assessment/Plan Assessment/Plan Hospital Course (Demo Recall) # sepsis, leukocytosis, SIRS, pulmonary, cardiac - recurrent leukocytosis due to bacteremia (below) - s/p septic shock due to pneumonia and C diff colitis - acute on chronic hypoxic respiratory failure, persistent - s/p reintubation 05/12/2018 - s/p re-do trach on 05/29/2018 - recurrent colonization of the anterior neck wound with ESBL+kleb, MRSA, GBS, corynebacteria on 05/06/2018, s/p meropenem - h/o pneumonia vs. colonization of the airway by pseudomonas and ESBL+klebsiella - h/o possible, recurrent HCAP due to pseudomonas and ESBL+klebsiella - h/o recurrent HCAP due to MRSA and Enterobacter (culture of tracheal aspirate on 07/16/2017 that was collected at [facility]) . Pt took vancomycin and ceftazidime - h/o decannulation prior to admission - h/o tracheostomy on 06/11/2017 - h/o SIRS from UGIB in 2018 - h/o thoracentesis on 07/18/2017, transudative (protein <2, LDH 279) - h/o bleeding from the trach site in 2018 - h/o septic shock due to pneumonia, ARDS, bacteremia, fungemia in 2018 - h/o ARDS in 2018 - h/o smoking - COPD - h/o ILD per medical record - h/o PAF, improved # GI - possible ileus or enterocolitis on CT abd/pel 06/15/2018-->follow up CT on 07/15/2018 showed no evidence of urolithiasis, obstructive uropathy or diverticulitis; it showed small to moderate ascites - C diff colitis, diagnosed on 05/11/2018. Pt's on pGT vancomycin induction followed by taper (05/11/2018-); Pt previously took IV metronidazole (05/11/2018- 05/29/2018; restart 05/30/2018-06/05/18) too - h/o intermittent diarrhea, Pt had multiple negative C. diff tests at [facility] at OSH in the past; none was positive until 05/11/2018 - dysphagia - h/o PEG placement 06/13/2018 - protein calorie malnutrition - h/o coffee ground emesis/UGIB on 12/23/2017 due to deep ulceration of distal esophagus and gastritis on EGD 12/26/2017. No e/o H. pylori - h/o possible appendicitis on CT on 11/22/2017, Pt took ertapenem (11/24/2017- 12/01/2017) - h/o extensive adhesions lower abdominal and pelvis between small bowel to each other and to colon and to abdominal wall, anterior pelvic wall chronic abscess secondary to probably an old perforated diverticulitis, torsion of small bowel around these dense adhesion causing multiple obstructive points - h/o laparoscopic exploration and extensive lysis of adhesions and drainage of anterior pelvic wall abscess 09/16/2017. Cultures were negative, no e/o malignancy. Pt took pip/tazo (09/16/2017-09/26/2017) - h/o EGD and exchange of PEG on 09/01/2017 - h/o partial obstruction mid jejunum in L anterior central pelvis with suggestion of a 3 cm soft tissue mass on CT 08/28/2017 - h/o internal stomal deep ulcer behind the internal bumper, gastritis and esophagitis, Rodriguez's cannot be ruled out, per EGD with biopsy 07/23/2017 - h/o GIB s/p flex sig showed polyp; stool OB negative on 06/29/17 - h/o stool OB positive status - h/o SBO and ileus due to pain meds - h/o mildly elevated CEA # renal/ - recurrent UTI due to pseudomonas (culture on 07/09/2018)-->Garza catheter was replaced on 07/14/2018 - s/p UTI due to MDR, CRE-klebsiella on 06/15/2018. S/p renally dosed amikacin for klebsiella in her urine culture (06/17-06/22/2018) - s/p UTI due to pseudomonas and ESBL+klebsiella on 06/09/2018, Pt took one dose of fosfomycin on 06/10/2018 and cipro 06/12-06/15/2018 - anasarca - started on HD on 05/15/2018, via Juan in R groin - recurrent NATHAN on CKD - 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 Her strain of CRE was sensitive to colistin, Avycaz, and Vabomere but resistant to Zerbaxa (reported on 05/19/2018) - metabolic acidosis - adrenal insufficiency - h/o vaginal bleed in 2018 - h/o colonization of urinary tract by ESBL+klebsiella, VRE - h/o recurrent, symptomatic UTI due to carbapenem-resistant kleb (MDR strain) per urine culture 10/04/17, 10/09/17, 10/21/2017, P took colistin (10/09/2017- 10/15/2017), fosfomycin for carbapenemase-producing klebsiella and VRE on 10/25/2017 and 10/28/2017 - h/o funguria - h/o urinary retention # bloodstream infections - Bacteremia d/t pseudomonas aeruginosa 07/09/18, 07/10/18, 07/11/18, 07/12/18 and 07/13/18. Associated with PICC because the blood culture from PICC and phlebotomy on 07/13/2018 both grew the same bacteria. The tip of PICC that was removed also grew the same bacteria in culture 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 improved. Probable manifestation of endocarditis. Pt declined MRI on 08/06/2017 - h/o infection of R toes due to pseudomonas. coagulase negative Staph likely a colonizer - h/o intertrigo of the groin, resolved with nystatin powder - h/o scabies, locally crusted lesion over L scapula, s/p permethrin cream and pGT ivermectin on 08/11/2017, 08/12/2017, 08/19/2017. Repeat skin scraping on 08/21/2017 was negative for scabies # psych, neuro - decreased hearing b/l - s/p acute toxic metabolic encephalopathy - h/o critical illness polyneuropathy - anxiety/depression, bipolar d/o, seen by Psychiatry in the past - chronic pain syndrome - h/o medical non-compliance: she would refuse her medications, treatment and straight catheterization in 2018 # hematological, vascular - chronic anemia requiring blood transfusion intermittently - macrocytic anemia - aneurysmal dilatation of the distal aorta visualized on CT 06/15/2018 - PVD Recommendations: - ordered: repeat blood cultures daily until blood cultures clear - please order transthoracic echo to r/o endocarditis - continue amikacin IV (07/09/2018-). Pt had a strain of pseudomonas that was resistant to all except for aminoglycoside - continue renally dosed cefepime (07/14/2018-); Pt needs double coverage because amikacin alone has not cleared bacteremia - Continue Vanco pGT (07/09/18/ - ) because Pt has h/o severe C diff colitis. OK to d/c metronidazole management d/w Pt and her RN Napoleon Consultation Date/Type/Reason Admit Date/Time May 06, 2018 at 17:38 Initial Consult Date 05/10/18 Type of Consult ID Requesting Provider: ROLAND GIRON MD Date/Time of Note DATE: 07/15/18 TIME: 14:57 24 HR Interval Summary Constitutional: other ("not good") Detailed Summary Eyes: no complaints ENT: other (no answer) Respiratory: No shortness of breath Cardiovascular: no complaints Gastrointestinal: pain (diffuse) Genitourinary: other (FC) Musculoskeletal: restricted range of motion (quadriplegic) Neurologic: other (quadriplegic) Exam/Review of Systems Exam Vitals Vital Signs Date Temp Pulse Resp B/P (MAP) Pulse Ox O2 O2 Flow FiO2 Time Delivery Rate 07/15/18 64 12:00 07/15/18 98.6 25 124/69 99 Trach 11:47 (87) Collar 07/15/18 30 11:05 Intake and Output 07/14/18 07/14/18 07/15/18 1515:00 23:00 07:00 IntakeIntake Total 100 ml 680 ml 1180 ml OutputOutput Total 700 ml 550 ml BalanceBalance 100 ml -20 ml 630 ml Constitutional: frail, obese Psych: confusion Head: normocephalic, atraumatic Eyes: nl conjunctiva, nl sclera ENMT: nl external ears & nose, other (dry mucus membranes) Neck: other (trach) Respiratory: crackles/rales Cardiovascular: regular rate and rhythm Gastrointestinal: soft, tender (diffusely but no guarding); No distended Musculoskeletal: muscle weakness Extremities: No edema Neurological: lethargic Skin: ecchymosis Results Result Diagram: 07/15/18 0611 07/15/18 0611 Results 24hrs Laboratory Tests Test 07/15/18 06:11 White Blood Count 13.3 H Red Blood Count 2.76 L Hemoglobin 8.9 L Hematocrit 28.8 L Mean Corpuscular Volume 104.3 H Mean Corpuscular Hemoglobin 32.2 Mean Corpuscular Hemoglobin Concent 30.9 L Red Cell Distribution Width 22.5 H Platelet Count 199 Mean Platelet Volume 10.4 Immature Granulocytes % 0.500 H Neutrophils % 83.3 H Lymphocytes % 7.6 L Monocytes % 4.7 Eosinophils % 3.5 Basophils % 0.4 Nucleated Red Blood Cells % 0.0 Immature Granulocytes # 0.070 H Neutrophils # 11.1 H Lymphocytes # 1.0 Monocytes # 0.6 Eosinophils # 0.5 Basophils # 0.1 Nucleated Red Blood Cells # 0.0 Sodium Level 140 Potassium Level 3.6 Chloride Level 107 Carbon Dioxide Level 20 L Anion Gap 13 Blood Urea Nitrogen 108 H Creatinine 2.14 H Est Glomerular Filtrat Rate mL/min Glucose Level 103 Calcium Level 9.0 Phosphorus Level 2.8 Magnesium Level 1.8 Medications Medication Current Medications IV Flush (NS 10 ml) 10 ml PRN IV ; Start 05/06/18 at 20:30 Zinc Sulfate (Zinc Sulfate) 220 mg DAILY GTB Last administered on 07/15/18at 09:31; Admin Dose 220 MG; Start 05/07/18 at 09:00 Ondansetron HCl (Zofran Tab) 4 mg Q6H PRN GTB NAUSEA AND/OR VOMITING Last administered on 05/31/18at 16:47; Admin Dose 4 MG; Start 05/07/18 at 00:15 Multivitamins (Multivitamin) 30 ml DAILY GTB Last administered on 07/15/18 09:32; Admin Dose 30 ML; Start 05/07/18 at 09:00 Miscellaneous Information (Pending Santyl Order For Wound Care) This patient goldman... PRN PRN XX WOUND CARE; Start 05/09/18 at 17:00 Famotidine (Pepcid) 20 mg DAILY PEG Last administered on 07/15/18 09:32; Admin Dose 20 MG; Start 05/23/18 at 09:00 Morphine Sulfate (morphine) 6 mg Q4H PRN PEG SEVERE PAIN LEVEL 7-10 Last administered on 07/15/18 05:24; Admin Dose 6 MG; Start 05/22/18 at 17:00 Acetaminophen (Tylenol Tab) 650 mg Q4H PRN PO MILD PAIN(1-3)OR ELEVATED TEMP Last administered on 07/06/18 21:25; Admin Dose 650 MG; Start 05/31/18 at 13:00 Metoclopramide HCl (Reglan) 5 mg Q6 IV Last administered on 07/15/18 12:25; Admin Dose 5 MG; Start 05/31/18 at 13:00 Collagenase (Santyl) 1 applic DAILY TOP Last administered on 07/14/18 21:04; Admin Dose 1 APPLIC; Start 06/01/18 at 09:00 Clonidine (Catapres) 0.1 mg Q6H PRN PO ELEVATED BLOOD PRESSURE Last administered on 07/09/18 09:08; Admin Dose 0.1 MG; Start 06/03/18 at 03:30 Bumetanide (Bumex) 1 mg BID DIURETICS GTB Last administered on 07/12/18 05:23; Admin Dose 1 MG; Start 06/11/18 at 18:00; Status Hold Miscellaneous Information 1 ea NOTE XX ; Start 06/26/18 at 08:00 Dicyclomine HCl (Bentyl) 20 mg Q8 PO Last administered on 07/15/18 13:54; Admin Dose 20 MG; Start 06/27/18 at 22:00 Cholestyramine Resin (Questran Light) 4 gm 0600,1200,1800,2300 GTB Last administered on 07/15/18 12:25; Admin Dose 4 GM; Start 06/27/18 at 18:00 Lorazepam (Ativan) 0.5 mg Q4 PRN IV ANXIETY Last administered on 07/13/18 11:07; Admin Dose 0.5 MG; Start 07/01/18 at 14:00 Amiodarone HCl (Cordarone) 200 mg Q8 GTB Last administered on 07/15/18 13:54; Admin Dose 200 MG; Start 07/05/18 at 22:00 Metoprolol Tartrate (Lopressor) 50 mg Q8 GTB Last administered on 07/15/18 13:54; Admin Dose 50 MG; Start 07/05/18 at 22:00 Citric Acid/ Sodium Citrate (Bicitra) 60 ml Q8 PO Last administered on 07/15/18 at 13:55; Admin Dose 60 ML; Start 07/09/18 at 14:00 Amikacin Sulfate (Amikacin Iv Per Pharmacy) 1 ea NOTE XX ; Start 07/09/18 at 17:30 Vancomycin HCl (Vancomycin Oral Syringe) 125 mg Q6 GTB Last administered on 07/15/18 13:53; Admin Dose 125 MG; Start 07/09/18 at 18:00 Metronidazole 100 ml @ 100 mls/hr Q8 IVPB Last administered on 07/15/18 13:55; Admin Dose 100 MLS/HR; Start 07/09/18 at 22:00 Miscellaneous Information (*Order Clarification Bulletin) MEDICATION REQUIRES CLARIFICATI... Q8H XX ; Start 07/13/18 at 01:30 Epoetin Zen-epbx (Retacrit (Non-Esrd)) 10,000 unit MoWeFr@1700 SC Last administered on 07/13/18 21:00; Admin Dose 10,000 UNIT; Start 07/13/18 at 17:00 Amikacin Sulfate 300 mg/Sodium Chloride 101.2 ml @ 101.4 mls/ hr Q48H IVPB Last administered on 07/15/18 00:52; Admin Dose 101.4 MLS/HR; Start 07/14/18 at 23:00 Cefepime HCl 50 ml @ 100 mls/hr Q24H IVPB Last administered on 07/14/18at 21:03; Admin Dose 100 MLS/HR; Start 07/14/18 at 18:30 Vancomycin HCl (Vanco Iv Per Pharmacy) VANCOMYCIN PER PHARMACY PER PROTOCOL XX ; Start 07/15/18 at 13:30 Vancomycin HCl 1.75 gm/Sodium Chloride 500 ml @ 125 mls/hr ONCE IVPB ; Start 07/15/18 at 14:30; Stop 07/15/18 at 18:29 Vancomycin HCl 1.5 gm/Sodium Chloride 250 ml @ 83.333 mls/ hr Q48H IVPB ; Start 07/17/18 at 15:00 CELESTINE MURPHY M.D. July 15, 2018 15:08
--- NOTE | 2018-07-15 17:19 | CONS ---
Assessment/Plan Assessment/Plan Assessment/Plan (Daily) Assessment/Plan (Daily) 1. ABD pain 2. Renal failure.- on HD 3. Vent dependent resp failure 4. Chronic obstructive pulmonary disease. 5. Bipolar. 6. Paroxysmal atrial fibrillation. 7. Anemia of chronic disease. 8. CHF 9. Diarrhea 11. Diarrhea -s/p c diff colitis -taper off of vanco -resolved 12. H/O deep esophageal ulcer 13. Dysphagia with g tube 14. Anemia of chronic disease 15. UTI with positive cx PLAN: Continue with reglan and pepcid and bentyl Monitor tube feeds residuals q 6 hour monitor for acute GI bleeding so far stool for occult blood had been negative Repeat CT scan of the abdomen and pelvis was negative Consultation Date/Type/Reason Admit Date/Time May 06, 2018 at 17:38 Initial Consult Date 05/10/18 Requesting Provider: ROLAND GIRON MD Date/Time of Note DATE: 07/15/18 TIME: 17:18 24 HR Interval Summary Constitutional: no complaints, improved Exam/Review of Systems Exam Vitals Vital Signs Date Temp Pulse Resp B/P (MAP) Pulse Ox O2 O2 Flow FiO2 Time Delivery Rate 07/15/18 98.0 95 18 144/76 90 Venturi 16:00 (98) Mask 07/15/18 30 11:05 Intake and Output 07/14/18 07/14/18 07/15/18 1515:00 23:00 07:00 IntakeIntake Total 100 ml 680 ml 1180 ml OutputOutput Total 700 ml 550 ml BalanceBalance 100 ml -20 ml 630 ml Constitutional: alert, oriented ENMT: intubated Respiratory: diminished breath sounds Cardiovascular: regular rate and rhythm, nl pulses Gastrointestinal: soft, nl liver, spleen, non-tender Results Result Diagram: 07/15/18 0611 07/15/18 0611 Results 24hrs Laboratory Tests Test 07/15/18 06:11 White Blood Count 13.3 H Red Blood Count 2.76 L Hemoglobin 8.9 L Hematocrit 28.8 L Mean Corpuscular Volume 104.3 H Mean Corpuscular Hemoglobin 32.2 Mean Corpuscular Hemoglobin Concent 30.9 L Red Cell Distribution Width 22.5 H Platelet Count 199 Mean Platelet Volume 10.4 Immature Granulocytes % 0.500 H Neutrophils % 83.3 H Lymphocytes % 7.6 L Monocytes % 4.7 Eosinophils % 3.5 Basophils % 0.4 Nucleated Red Blood Cells % 0.0 Immature Granulocytes # 0.070 H Neutrophils # 11.1 H Lymphocytes # 1.0 Monocytes # 0.6 Eosinophils # 0.5 Basophils # 0.1 Nucleated Red Blood Cells # 0.0 Sodium Level 140 Potassium Level 3.6 Chloride Level 107 Carbon Dioxide Level 20 L Anion Gap 13 Blood Urea Nitrogen 108 H Creatinine 2.14 H Est Glomerular Filtrat Rate mL/min Glucose Level 103 Calcium Level 9.0 Phosphorus Level 2.8 Magnesium Level 1.8 Medications Medication Current Medications IV Flush (NS 10 ml) 10 ml PRN IV ; Start 05/06/18 at 20:30 Zinc Sulfate (Zinc Sulfate) 220 mg DAILY GTB Last administered on 07/15/18 09:31; Admin Dose 220 MG; Start 05/07/18 at 09:00 Ondansetron HCl (Zofran Tab) 4 mg Q6H PRN GTB NAUSEA AND/OR VOMITING Last administered on 05/31/18 16:47; Admin Dose 4 MG; Start 05/07/18 at 00:15 Multivitamins (Multivitamin) 30 ml DAILY GTB Last administered on 07/15/18 09:32; Admin Dose 30 ML; Start 05/07/18 at 09:00 Miscellaneous Information (Pending Santyl Order For Wound Care) This patient goldman... PRN PRN XX WOUND CARE; Start 05/09/18 at 17:00 Famotidine (Pepcid) 20 mg DAILY PEG Last administered on 07/15/18 09:32; Admin Dose 20 MG; Start 05/23/18 at 09:00 Morphine Sulfate (morphine) 6 mg Q4H PRN PEG SEVERE PAIN LEVEL 7-10 Last administered on 07/15/18 05:24; Admin Dose 6 MG; Start 05/22/18 at 17:00 Acetaminophen (Tylenol Tab) 650 mg Q4H PRN PO MILD PAIN(1-3)OR ELEVATED TEMP Last administered on 07/06/18 21:25; Admin Dose 650 MG; Start 05/31/18 at 13:00 Metoclopramide HCl (Reglan) 5 mg Q6 IV Last administered on 07/15/18 12:25; Admin Dose 5 MG; Start 05/31/18 at 13:00 Collagenase (Santyl) 1 applic DAILY TOP Last administered on 07/14/18 21:04; Admin Dose 1 APPLIC; Start 06/01/18 at 09:00 Clonidine (Catapres) 0.1 mg Q6H PRN PO ELEVATED BLOOD PRESSURE Last administered on 07/09/18 09:08; Admin Dose 0.1 MG; Start 06/03/18 at 03:30 Bumetanide (Bumex) 1 mg BID DIURETICS GTB Last administered on 07/12/18 05:23; Admin Dose 1 MG; Start 06/11/18 at 18:00; Status Hold Miscellaneous Information 1 ea NOTE XX ; Start 06/26/18 at 08:00 Dicyclomine HCl (Bentyl) 20 mg Q8 PO Last administered on 07/15/18 13:54; Admin Dose 20 MG; Start 06/27/18 at 22:00 Cholestyramine Resin (Questran Light) 4 gm 0600,1200,1800,2300 GTB Last administered on 07/15/18 12:25; Admin Dose 4 GM; Start 06/27/18 at 18:00 Lorazepam (Ativan) 0.5 mg Q4 PRN IV ANXIETY Last administered on 07/13/18 11:07; Admin Dose 0.5 MG; Start 07/01/18 at 14:00 Amiodarone HCl (Cordarone) 200 mg Q8 GTB Last administered on 07/15/18 13:54; Admin Dose 200 MG; Start 07/05/18 at 22:00 Metoprolol Tartrate (Lopressor) 50 mg Q8 GTB Last administered on 07/15/18 13:54; Admin Dose 50 MG; Start 07/05/18 at 22:00 Citric Acid/ Sodium Citrate (Bicitra) 60 ml Q8 PO Last administered on 07/15/18 13:55; Admin Dose 60 ML; Start 07/09/18 at 14:00 Amikacin Sulfate (Amikacin Iv Per Pharmacy) 1 ea NOTE XX ; Start 07/09/18 at 17:30 Vancomycin HCl (Vancomycin Oral Syringe) 125 mg Q6 GTB Last administered on 07/15/18 13:53; Admin Dose 125 MG; Start 07/09/18 at 18:00 Miscellaneous Information (*Order Clarification Bulletin) MEDICATION REQUIRES CLARIFICATI... Q8H XX ; Start 07/13/18 at 01:30 Epoetin Zen-epbx (Retacrit (Non-Esrd)) 10,000 unit MoWeFr@1700 SC Last administered on 07/13/18at 21:00; Admin Dose 10,000 UNIT; Start 07/13/18 at 17:00 Amikacin Sulfate 300 mg/Sodium Chloride 101.2 ml @ 101.4 mls/ hr Q48H IVPB Last administered on 07/15/18at 00:52; Admin Dose 101.4 MLS/HR; Start 07/14/18 at 23:00 Cefepime HCl 50 ml @ 100 mls/hr Q24H IVPB Last administered on 07/14/18at 21:03; Admin Dose 100 MLS/HR; Start 07/14/18 at 18:30 Vancomycin HCl (Vanco Iv Per Pharmacy) VANCOMYCIN PER PHARMACY PER PROTOCOL XX ; Start 07/15/18 at 13:30 Vancomycin HCl 1.75 gm/Sodium Chloride 500 ml @ 125 mls/hr ONCE IVPB Last administered on 07/15/18at 16:45; Admin Dose 125 MLS/HR; Start 07/15/18 at 14:30; Stop 07/15/18 at 18:29 Vancomycin HCl 1.5 gm/Sodium Chloride 250 ml @ 83.333 mls/ hr Q48H IVPB ; Start 07/17/18 at 15:00 QUINTEN UMAÑA MD July 15, 2018 17:19
[2018-07-15] MEDS: EPOETIN ALFA-EPBX (NON-ESRD 10,000 UNIT/ML VIAL SC SCH (17:54)
[2018-07-15] MEDS: CEFEPIME 2GM/50 ML (PMX) 50 ML IVPB SCH (20:53)
[2018-07-16] VITALS (21 sets, daily range): BP systolic 112–147; BP diastolic 56–73; PULSE 64–88; RESP 19–30
[2018-07-16] MEDS: VANCOMYCIN HCL 250 MG/5ML POSYG GTB SCH ×4 (00:41→18:00)
[2018-07-16] MEDS: METOCLOPRAMIDE 10 MG INJ IV SCH ×4 (00:41→17:59)
[2018-07-16] MEDS: ACETAMINOPHEN 325 MG TAB PO PRN (00:42)
[2018-07-16] MEDS: [UNRECOGNIZED DRUG - REMARK] XX SCH ×3 (01:30→17:30)
[2018-07-16] MEDS: CITRIC ACID/NA CITRATE 30 ML CUP PO SCH ×3 (06:07→21:36)
[2018-07-16] MEDS: DICYCLOMINE 10 MG CAP PO SCH ×3 (06:08→21:37)
[2018-07-16] MEDS: METOPROLOL 50 MG TAB GTB SCH ×3 (06:08→21:37)
[2018-07-16] MEDS: CHOLESTYRAMINE (LIGHT) 4 GM PACKET GTB SCH ×4 (06:08→23:00)
[2018-07-16] MEDS: morphine LIQ (10 MG/5 ML) CUP PEG PRN (06:09)
[2018-07-16] MEDS: AMIODARONE 200 MG TAB GTB SCH ×3 (06:09→21:36)
[2018-07-16] MEDS: ZINC SULFATE 220 MG CAP GTB SCH (09:01)
[2018-07-16] MEDS: FAMOTIDINE 20 MG TAB PEG SCH (09:01)
[2018-07-16] MEDS: COLLAGENASE 5 GM (UD JAR) TOP SCH (09:01)
[2018-07-16] MEDS: MULTIVITAMINS 30 ML CUP GTB SCH (09:02)
[2018-07-16] MEDS: BALSAM PERU/CASTOR OIL 60 GM TUBE TOP SCH ×2 (09:03→21:36)
[2018-07-16] MEDS ORDERED: MAGNESIUM SULFATE 2 GM/50 ML 50 ML IVPB ONE (11:00)
--- NOTE | 2018-07-16 11:55 | CONS ---
Assessment/Plan Assessment/Plan Hospital Course (Demo Recall) Septic as well as hemorrhagic shock Acute respiratory failure status post intubation and repeat tracheostomy Acute blood loss anemia History of respiratory failure status post decannulation Preserved ejection fraction echocardiogram 05/10/2018 Paroxysmal atrial fibrillation Acute kidney injury -Blood pressure trend overall improved. Continue beta-tin as tolerated -Patient with paroxysmal atrial fibrillation, currently in sinus rhythm -Continue amiodarone as tolerated -Vent management as per pulmonary -Fluid management and electrolytes as per renal -Antibiotics as per infectious disease -No anticoagulation given recurrent anemia requiring blood transfusions -Given recurrent bacteremia, request made by infectious disease for repeat echocardiogram-patient refused yesterday senior living through the imaging process. I did discuss with the patient this morning regarding the importance of compliance. I have asked our senior medical technologist to reattempt today Consultation Date/Type/Reason Admit Date/Time May 06, 2018 at 17:38 Initial Consult Date 05/10/18 Type of Consult Cardiology Requesting Provider: ROLAND GIRON MD Date/Time of Note DATE: 07/16/18 TIME: 11:53 24 HR Interval Summary Free Text/Dictation No shortness of breath, palpitations Exam/Review of Systems Vital Signs Vitals Vital Signs Date Temp Pulse Resp B/P (MAP) Pulse Ox O2 O2 Flow FiO2 Time Delivery Rate 07/16/18 63 20 99 30 11:47 07/16/18 97.4 112/56 11:09 (74) 07/15/18 Venturi 16:00 Mask Intake and Output 07/15/18 07/15/18 07/16/18 1515:00 23:00 07:00 IntakeIntake Total 2111.2 ml 1380 ml OutputOutput Total 300 ml 1000 ml BalanceBalance 1811.2 ml 380 ml Exam Exam No apparent distress, following commands Constitutional: alert Head: normocephalic Respiratory: other (Coarse breath sounds bilaterally, no wheezing) Cardiovascular: regular rate and rhythm (S1-S2 heard) Gastrointestinal: soft, non-tender, bowel sounds Extremities: edema Labs Result Diagram: 07/16/18 0821 07/16/18 0821 Results 24hrs Laboratory Tests Test 07/16/18 08:21 White Blood Count 12.2 H Red Blood Count 2.90 L Hemoglobin 9.2 L Hematocrit 30.6 L Mean Corpuscular Volume 105.5 H Mean Corpuscular Hemoglobin 31.7 Mean Corpuscular Hemoglobin Concent 30.1 L Red Cell Distribution Width 22.3 H Platelet Count 210 Mean Platelet Volume 10.6 H Immature Granulocytes % 0.700 H Neutrophils % 81.9 H Lymphocytes % 8.7 L Monocytes % 5.0 Eosinophils % 3.4 Basophils % 0.3 Nucleated Red Blood Cells % 0.0 Immature Granulocytes # 0.090 H Neutrophils # 10.0 H Lymphocytes # 1.1 Monocytes # 0.6 Eosinophils # 0.4 Basophils # 0.0 Nucleated Red Blood Cells # 0.0 Sodium Level 137 Potassium Level 3.6 Chloride Level 104 Carbon Dioxide Level 21 Anion Gap 12 Blood Urea Nitrogen 107 H Creatinine 2.09 H Est Glomerular Filtrat Rate mL/min Glucose Level 101 Calcium Level 9.0 Phosphorus Level 3.4 Magnesium Level 1.6 L Medications Medications Current Medications IV Flush (NS 10 ml) 10 ml PRN IV ; Start 05/06/18 at 20:30 Zinc Sulfate (Zinc Sulfate) 220 mg DAILY GTB Last administered on 07/16/18 09:01; Admin Dose 220 MG; Start 05/07/18 at 09:00 Ondansetron HCl (Zofran Tab) 4 mg Q6H PRN GTB NAUSEA AND/OR VOMITING Last administered on 05/31/18 16:47; Admin Dose 4 MG; Start 05/07/18 at 00:15 Multivitamins (Multivitamin) 30 ml DAILY GTB Last administered on 07/16/18 09:02; Admin Dose 30 ML; Start 05/07/18 at 09:00 Miscellaneous Information ([facility]) This patient goldman... PRN PRN XX WOUND CARE; Start 05/09/18 at 17:00 Famotidine (Pepcid) 20 mg DAILY PEG Last administered on 07/16/18 09:01; Admin Dose 20 MG; Start 05/23/18 at 09:00 Morphine Sulfate (morphine) 6 mg Q4H PRN PEG SEVERE PAIN LEVEL 7-10 Last administered on 07/16/18 06:09; Admin Dose 6 MG; Start 05/22/18 at 17:00 Acetaminophen (Tylenol Tab) 650 mg Q4H PRN PO MILD PAIN(1-3)OR ELEVATED TEMP Last administered on 07/16/18 00:42; Admin Dose 650 MG; Start 05/31/18 at 13:00 Metoclopramide HCl (Reglan) 5 mg Q6 IV Last administered on 07/16/18 06:07; Admin Dose 5 MG; Start 05/31/18 at 13:00 Collagenase (Santyl) 1 applic DAILY TOP Last administered on 07/16/18 09:01; Admin Dose 1 APPLIC; Start 06/01/18 at 09:00 Clonidine (Catapres) 0.1 mg Q6H PRN PO ELEVATED BLOOD PRESSURE Last administered on 07/09/18 09:08; Admin Dose 0.1 MG; Start 06/03/18 at 03:30 Bumetanide (Bumex) 1 mg BID DIURETICS GTB Last administered on 07/12/18 05:23; Admin Dose 1 MG; Start 06/11/18 at 18:00; Status Hold Miscellaneous Information 1 ea NOTE XX ; Start 06/26/18 at 08:00 Dicyclomine HCl (Bentyl) 20 mg Q8 PO Last administered on 07/16/18 06:08; Admin Dose 20 MG; Start 06/27/18 at 22:00 Cholestyramine Resin (Questran Light) 4 gm 0600,1200,1800,2300 GTB Last administered on 07/16/18 06:08; Admin Dose 4 GM; Start 06/27/18 at 18:00 Lorazepam (Ativan) 0.5 mg Q4 PRN IV ANXIETY Last administered on 07/13/18 11:07; Admin Dose 0.5 MG; Start 07/01/18 at 14:00 Amiodarone HCl (Cordarone) 200 mg Q8 GTB Last administered on 07/16/18 06:09; Admin Dose 200 MG; Start 07/05/18 at 22:00 Metoprolol Tartrate (Lopressor) 50 mg Q8 GTB Last administered on 07/16/18 06:08; Admin Dose 50 MG; Start 07/05/18 at 22:00 Citric Acid/ Sodium Citrate (Bicitra) 60 ml Q8 PO Last administered on 07/16/18 06:07; Admin Dose 60 ML; Start 07/09/18 at 14:00 Amikacin Sulfate (Amikacin Iv Per Pharmacy) 1 ea NOTE XX ; Start 07/09/18 at 17:30 Vancomycin HCl (Vancomycin Oral Syringe) 125 mg Q6 GTB Last administered on 07/16/18at 06:07; Admin Dose 125 MG; Start 07/09/18 at 18:00 Miscellaneous Information (*Order Clarification Bulletin) MEDICATION REQUIRES CLARIFICATI... Q8H XX ; Start 07/13/18 at 01:30 Epoetin Zen-epbx (Retacrit (Non-Esrd)) 10,000 unit MoWeFr@1700 SC Last administered on 07/15/18at 17:54; Admin Dose 10,000 UNIT; Start 07/13/18 at 17:00 Amikacin Sulfate 300 mg/Sodium Chloride 101.2 ml @ 101.4 mls/ hr Q48H IVPB Last administered on 07/15/18at 00:52; Admin Dose 101.4 MLS/HR; Start 07/14/18 at 23:00 Cefepime HCl 50 ml @ 100 mls/hr Q24H IVPB Last administered on 07/15/18at 20:53; Admin Dose 100 MLS/HR; Start 07/14/18 at 18:30 Vancomycin HCl (Vanco Iv Per Pharmacy) VANCOMYCIN PER PHARMACY PER PROTOCOL XX ; Start 07/15/18 at 13:30 Vancomycin HCl 1.5 gm/Sodium Chloride 250 ml @ 83.333 mls/ hr Q48H IVPB ; Start 07/17/18 at 15:00 Magnesium Sulfate 50 ml @ 25 mls/hr ONCE ONCE IVPB ; Start 07/16/18 at 11:00; Stop 07/16/18 at 12:59 Evangelista Scanlon DO July 16, 2018 11:54
--- NOTE | 2018-07-16 12:58 | CONS ---
[facility] HCIS Consult Follow-up Patient Name: Zuly Mcwilliams Unit Number: [id number] Date of : 1945 Patient Status: Admitted Inpatient Attending Doctor: Roland Giron MD Edit: CELESTINE SANCHEZ M.D. on 07/17/18 @ 17:17 Daniel: I discussed the management with JADE Joshi and agree Assessment/Plan Assessment/Plan Hospital Course (Demo Recall) # sepsis, leukocytosis, SIRS, pulmonary, cardiac - recurrent leukocytosis due to bacteremia (below) - improving - s/p septic shock due to pneumonia and C diff colitis - acute on chronic hypoxic respiratory failure, persistent - s/p reintubation 05/12/2018 - s/p re-do trach on 05/29/2018 - recurrent colonization of the anterior neck wound with ESBL+kleb, MRSA, GBS, corynebacteria on 05/06/2018, s/p meropenem - h/o pneumonia vs. colonization of the airway by pseudomonas and ESBL+klebsiella - h/o possible, recurrent HCAP due to pseudomonas and ESBL+klebsiella - h/o recurrent HCAP due to MRSA and Enterobacter (culture of tracheal aspirate on 07/16/2017 that was collected at [facility]) . Pt took vancomycin and ceftazidime - h/o decannulation prior to admission - h/o tracheostomy on 06/11/2017 - h/o SIRS from UGIB in 2018 - h/o thoracentesis on 07/18/2017, transudative (protein <2, LDH 279) - h/o bleeding from the trach site in 2018 - h/o septic shock due to pneumonia, ARDS, bacteremia, fungemia in 2018 - h/o ARDS in 2018 - h/o smoking - COPD - h/o ILD per medical record - h/o PAF, improved # GI - possible ileus or enterocolitis on CT abd/pel 06/15/2018-->follow up CT on 07/15/2018 showed no evidence of urolithiasis, obstructive uropathy or diverticulitis; it showed small to moderate ascites - C diff colitis, diagnosed on 05/11/2018. Pt's on pGT vancomycin induction followed by taper (05/11/2018-); Pt previously took IV metronidazole (05/11/2018- 05/29/2018; restart 05/30/2018-06/05/18) too - h/o intermittent diarrhea, Pt had multiple negative C. diff tests at [facility] at OSH in the past; none was positive until 05/11/2018 - dysphagia - h/o PEG placement 06/13/2018 - protein calorie malnutrition - h/o coffee ground emesis/UGIB on 12/23/2017 due to deep ulceration of distal esophagus and gastritis on EGD 12/26/2017. No e/o H. pylori - h/o possible appendicitis on CT on 11/22/2017, Pt took ertapenem (11/24/2017- 12/01/2017) - h/o extensive adhesions lower abdominal and pelvis between small bowel to each other and to colon and to abdominal wall, anterior pelvic wall chronic abscess secondary to probably an old perforated diverticulitis, torsion of small bowel around these dense adhesion causing multiple obstructive points - h/o laparoscopic exploration and extensive lysis of adhesions and drainage of anterior pelvic wall abscess 09/16/2017. Cultures were negative, no e/o malignancy. Pt took pip/tazo (09/16/2017-09/26/2017) - h/o EGD and exchange of PEG on 09/01/2017 - h/o partial obstruction mid jejunum in L anterior central pelvis with suggestion of a 3 cm soft tissue mass on CT 08/28/2017 - h/o internal stomal deep ulcer behind the internal bumper, gastritis and esophagitis, Rodriguez's cannot be ruled out, per EGD with biopsy 07/23/2017 - h/o GIB s/p flex sig showed polyp; stool OB negative on 06/29/17 - h/o stool OB positive status - h/o SBO and ileus due to pain meds - h/o mildly elevated CEA # renal/ - recurrent UTI due to pseudomonas (culture on 07/09/2018)-->Garza catheter was replaced on 07/14/2018 - s/p UTI due to MDR, CRE-klebsiella on 06/15/2018. S/p renally dosed amikacin for klebsiella in her urine culture (06/17-06/22/2018) - s/p UTI due to pseudomonas and ESBL+klebsiella on 06/09/2018, Pt took one dose of fosfomycin on 06/10/2018 and cipro 06/12-06/15/2018 - anasarca - started on HD on 05/15/2018, via Juan in R groin - recurrent NATHAN on CKD - 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 Her strain of CRE was sensitive to colistin, Avycaz, and Vabomere but resistant to Zerbaxa (reported on 05/19/2018) - metabolic acidosis - adrenal insufficiency - h/o vaginal bleed in 2018 - h/o colonization of urinary tract by ESBL+klebsiella, VRE - h/o recurrent, symptomatic UTI due to carbapenem-resistant kleb (MDR strain) per urine culture 10/04/17, 10/09/17, 10/21/2017, P took colistin (10/09/2017- 10/15/2017), fosfomycin for carbapenemase-producing klebsiella and VRE on 10/25/2017 and 10/28/2017 - h/o funguria - h/o urinary retention # bloodstream infections - bacteremia d/t pseudomonas aeruginosa 07/09/18, 07/10/18, 07/11/18, 07/12/18, 07/13/18 and 07/15/18 (GNR). Associated with PICC because the blood culture from PICC and phlebotomy on 07/13/2018 both grew the same bacteria. The tip of PICC that was removed also grew the same bacteria in culture - bacteremia d/t staph species 07/13/18 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 improved. Probable manifestation of endocarditis. Pt declined MRI on 08/06/2017 - h/o infection of R toes due to pseudomonas. coagulase negative Staph likely a colonizer - h/o intertrigo of the groin, resolved with nystatin powder - h/o scabies, locally crusted lesion over L scapula, s/p permethrin cream and pGT ivermectin on 08/11/2017, 08/12/2017, 08/19/2017. Repeat skin scraping on 08/21/2017 was negative for scabies # psych, neuro - decreased hearing b/l - s/p acute toxic metabolic encephalopathy - h/o critical illness polyneuropathy - anxiety/depression, bipolar d/o, seen by Psychiatry in the past - chronic pain syndrome - h/o medical non-compliance: she would refuse her medications, treatment and straight catheterization in 2018 # hematological, vascular - chronic anemia requiring blood transfusion intermittently - macrocytic anemia - aneurysmal dilatation of the distal aorta visualized on CT 06/15/2018 - PVD Recommendations: - ordered: repeat blood cultures daily until blood cultures clear - transthoracic echo when pt is agreeable to r/o endocarditis - continue amikacin IV (07/09/2018-). Pt had a strain of pseudomonas that was resistant to all except for aminoglycoside - continue renally dosed cefepime (07/14/2018-); Pt needs double coverage because amikacin alone has not cleared bacteremia - continue renally dosed vancomycin IV (07/15/2018-) for staph species in blood culture - continue Vanco pGT (07/09/18/ - ) because Pt has h/o severe C diff colitis. S/p IV metronidazole (07/09/18-07/15/18) Management d/w patient, JAYANT Rosas, and with Dr. Sanchez. Also spoke with Dr. Scanlon who reported that pt had declined 2D echo yesterday, will try again today, and he advised to go ahead and treat pt for possible endocarditis if suspicion is strong. Consultation Date/Type/Reason Admit Date/Time May 06, 2018 at 17:38 Initial Consult Date 05/07/18 Type of Consult Infectious Disease Requesting Provider: ROLAND GIRON MD Date/Time of Note DATE: 07/16/18 TIME: 12:53 24 HR Interval Summary Free Text/Dictation Blood cultures are growing GNR in 1 of 2 sets again from 07/15. WBC is trending down. Remains afebrile. Pt refused 2D echo yesterday per d/w Filters Assembler. Nods yes that pain is currently tolerable. Nods yes to nausea and no to vomiting. Denies SOB. ROS limited as pt is non-verbal. Pt had BM last night but no diarrhea reported. No BM yet today per d/w nursing. Exam/Review of Systems Exam Vitals Vital Signs Date Temp Pulse Resp B/P (MAP) Pulse Ox O2 O2 Flow FiO2 Time Delivery Rate 07/16/18 63 20 99 30 11:47 07/16/18 97.4 112/56 11:09 (74) 07/15/18 Venturi 16:00 Mask Intake and Output 07/15/18 07/15/18 07/16/18 1515:00 23:00 07:00 IntakeIntake Total 2111.2 ml 1380 ml OutputOutput Total 300 ml 1000 ml BalanceBalance 1811.2 ml 380 ml Constitutional: well developed, frail, obese Psych: no complaints Head: normocephalic, atraumatic Eyes: nl conjunctiva, nl lids, nl sclera ENMT: nl external ears & nose, nl nasal mucosa & septum, other (MM pink and slightly dry) Neck: non-tender, other (trach is midline and connected to ventilator support) Respiratory: other (coarse breath sounds); No wheezing Cardiovascular: regular rate and rhythm Gastrointestinal: soft, tender (nonspecific; no guarding; G-tube intact) Musculoskeletal: muscle weakness Extremities: other (bilateral foot drop) Neurological: lethargic, other (nods to simple questions; follows simple commands) Skin: ecchymosis, other (R foot and L [place] wrapped with Kerlix c/d/i) Results Result Diagram: 07/16/1882007/16/18820 Results 24hrs Laboratory Tests Test 07/16/18 08:21 White Blood Count 12.2 H Red Blood Count 2.90 L Hemoglobin 9.2 L Hematocrit 30.6 L Mean Corpuscular Volume 105.5 H Mean Corpuscular Hemoglobin 31.7 Mean Corpuscular Hemoglobin Concent 30.1 L Red Cell Distribution Width 22.3 H Platelet Count 210 Mean Platelet Volume 10.6 H Immature Granulocytes % 0.700 H Neutrophils % 81.9 H Lymphocytes % 8.7 L Monocytes % 5.0 Eosinophils % 3.4 Basophils % 0.3 Nucleated Red Blood Cells % 0.0 Immature Granulocytes # 0.090 H Neutrophils # 10.0 H Lymphocytes # 1.1 Monocytes # 0.6 Eosinophils # 0.4 Basophils # 0.0 Nucleated Red Blood Cells # 0.0 Sodium Level 137 Potassium Level 3.6 Chloride Level 104 Carbon Dioxide Level 21 Anion Gap 12 Blood Urea Nitrogen 107 H Creatinine 2.09 H Est Glomerular Filtrat Rate mL/min Glucose Level 101 Calcium Level 9.0 Phosphorus Level 3.4 Magnesium Level 1.[address] abd/pelvis 07/15/2018: No evidence of urolithiasis, obstructive uropathy or diverticulitis. Nonvisualization appendix. Small to moderate volume ascites. No abscess. Mild interstitial edema with bibasilar atelectasis.. Atrophic left kidney containing parenchymal cyst. Compensatory hypertrophy right kidney. Vascular calcifications. Mild aneurysmal dilatation infrarenal aorta. Medications Medication Current Medications IV Flush (NS 10 ml) 10 ml PRN IV ; Start 05/06/18 at 20:30 Zinc Sulfate (Zinc Sulfate) 220 mg DAILY GTB Last administered on 07/16/18at 09:01; Admin Dose 220 MG; Start 05/07/18 at 09:00 Ondansetron HCl (Zofran Tab) 4 mg Q6H PRN GTB NAUSEA AND/OR VOMITING Last administered on 05/31/18at 16:47; Admin Dose 4 MG; Start 05/07/18 at 00:15 Multivitamins (Multivitamin) 30 ml DAILY GTB Last administered on 5/30/19at 09:02; Admin Dose 30 ML; Start 05/07/18 at 09:00 Miscellaneous Information (Pending Santyl Order For Wound Care) This patient goldman... PRN PRN XX WOUND CARE; Start 05/09/18 at 17:00 Famotidine (Pepcid) 20 mg DAILY PEG Last administered on 07/16/18 09:01; Admin Dose 20 MG; Start 05/23/18 at 09:00 Morphine Sulfate (morphine) 6 mg Q4H PRN PEG SEVERE PAIN LEVEL 7-10 Last administered on 07/16/18 06:09; Admin Dose 6 MG; Start 05/22/18 at 17:00 Acetaminophen (Tylenol Tab) 650 mg Q4H PRN PO MILD PAIN(1-3)OR ELEVATED TEMP Last administered on 07/16/18 00:42; Admin Dose 650 MG; Start 05/31/18 at 13:00 Metoclopramide HCl (Reglan) 5 mg Q6 IV Last administered on 07/16/18 11:31; Admin Dose 5 MG; Start 05/31/18 at 13:00 Collagenase (Santyl) 1 applic DAILY TOP Last administered on 07/16/18 09:01; Admin Dose 1 APPLIC; Start 06/01/18 at 09:00 Clonidine (Catapres) 0.1 mg Q6H PRN PO ELEVATED BLOOD PRESSURE Last administered on 07/09/18 09:08; Admin Dose 0.1 MG; Start 06/03/18 at 03:30 Bumetanide (Bumex) 1 mg BID DIURETICS GTB Last administered on 07/12/18 05 :23; Admin Dose 1 MG; Start 06/11/18 at 18:00; Status Hold Miscellaneous Information 1 ea NOTE XX ; Start 06/26/18 at 08:00 Dicyclomine HCl (Bentyl) 20 mg Q8 PO Last administered on 07/16/18 06:08; Admin Dose 20 MG; Start 06/27/18 at 22:00 Cholestyramine Resin (Questran Light) 4 gm 0600,1200,1800,2300 GTB Last administered on 07/16/18 11:31; Admin Dose 4 GM; Start 06/27/18 at 18:00 Lorazepam (Ativan) 0.5 mg Q4 PRN IV ANXIETY Last administered on 07/13/18 11:07; Admin Dose 0.5 MG; Start 07/01/18 at 14:00 Amiodarone HCl (Cordarone) 200 mg Q8 GTB Last administered on 07/16/18 06:09; Admin Dose 200 MG; Start 07/05/18 at 22:00 Metoprolol Tartrate (Lopressor) 50 mg Q8 GTB Last administered on 07/16/18 06:08; Admin Dose 50 MG; Start 07/05/18 at 22:00 Citric Acid/ Sodium Citrate (Bicitra) 60 ml Q8 PO Last administered on 07/16/18 06:07; Admin Dose 60 ML; Start 07/09/18 at 14:00 Amikacin Sulfate (Amikacin Iv Per Pharmacy) 1 ea NOTE XX ; Start 07/09/18 at 17:30 Vancomycin HCl (Vancomycin Oral Syringe) 125 mg Q6 GTB Last administered on 07/16/18 11:31; Admin Dose 125 MG; Start 07/09/18 at 18:00 Miscellaneous Information (*Order Clarification Bulletin) MEDICATION REQUIRES CLARIFICATI... Q8H XX ; Start 07/13/18 at 01:30 Epoetin Zen-epbx (Retacrit (Non-Esrd)) 10,000 unit MoWeFr@1700 SC Last administered on 07/15/18at 17:54; Admin Dose 10,000 UNIT; Start 07/13/18 at 17:00 Amikacin Sulfate 300 mg/Sodium Chloride 101.2 ml @ 101.4 mls/ hr Q48H IVPB Last administered on 07/15/18at 00:52; Admin Dose 101.4 MLS/HR; Start 07/14/18 at 23:00 Cefepime HCl 50 ml @ 100 mls/hr Q24H IVPB Last administered on 07/15/18at 20:53; Admin Dose 100 MLS/HR; Start 07/14/18 at 18:30 Vancomycin HCl (Vanco Iv Per Pharmacy) VANCOMYCIN PER PHARMACY PER PROTOCOL XX ; Start 07/15/18 at 13:30 Magnesium Sulfate 50 ml @ 25 mls/hr ONCE ONCE IVPB Last administered on 07/16/18 11:31; Admin Dose 25 MLS/HR; Start 07/16/18 at 11:00; Stop 07/16/18 at 12:59 Vancomycin HCl 1.5 gm/Sodium Chloride 250 ml @ 83.333 mls/ hr Q48H IVPB ; Start 07/17/18 at 17:00 LAURA JOSHI NP July 16, 2018 12:58
--- NOTE | 2018-07-16 13:40 | PN ---
DATE: 07/16/2018 SUBJECTIVE: Overnight, the patient was stable on ventilator. No report of hemoptysis. There is no hematemesis, no hematochezia. Urinary output is adequate. OBJECTIVE: VITAL SIGNS: Blood pressure is 136/67, respirations 20, pulse 98, temperature 97.6. HEENT: Head is normocephalic. NECK: Supple. HEART: Regular rate. LUNGS: Show diminished breath sounds at base with mild crackles. ABDOMEN: Soft, nontender to palpation. ____ EXTREMITIES: Negative for clubbing, cyanosis. Trace edema. DERMATOLOGIC: No rash. MUSCULOSKELETAL: No joint effusions. NEUROLOGIC: No change in exam. MEDICATIONS: Have been reviewed. LABORATORY DATA: On 07/15/2018 have been reviewed. Laboratory data on 07/16/2018 is pending. ASSESSMENT AND PLAN: 1. Nonoliguric acute kidney injury with previous baseline creatinine of 2.0 mg/dL. Etiology of acut e kidney injury was initially due to acute tubular necrosis. The patient was on hemodialysis, comple gwyn 2 weeks. Due to adequate renal recovery, the patient's Juan catheter was removed. The patien t's renal function, however, declined in the last 7 to 10 days likely due to recurrent sepsis. At th is point, continue current treatment plans, supportive care, renally dose all meds. No immediate nee d for renal replacement therapy. 2. Hypernatremia, improved. Continue free water flushes. 3. Hypokalemia. Continue to monitor and replete. 4. Hypomagnesemia. Continue to monitor. 5. Metabolic acidosis, improved. Continue Bicitra. 6. Volume overload. Continue intermittent diuretic therapy. 7. Anemia. Monitor hemoglobin and hematocrit levels. Continue Epogen. 8. Ventilatory dependent respiratory failure. Vent settings were reviewed. Continue to monitor. F ollow up with pulmonary. 9. Sepsis. Continue current antibiotic regimen. Cultures were reviewed. Follow up with infectious disease. 10. Dysphagia. Continue tube feeding. 11. ____, improved. 12. Lower extremity wounds. Continue wound care. Dictated By: JEANA BANSAL DO NR/NTS Conf#: [id number] DID#: [id number] CC: QUINTEN UMAÑA MD; ROLAND GIRON MD;*EndCC*
--- NOTE | 2018-07-16 15:18 | PN ---
Date/Time of Note Date/Time of Note DATE: 07/16/18 TIME: 15:14 Assessment/Plan VTE Prophylaxis Risk score (from [employer] [facility] [employer])>0 risk: 9 SCD applied (from [employer] [facility] [employer]): Yes Pharmacological prophylaxis: NA/contraindicated Pharm contraindication: anticoag not tolerated Lines/Catheters IV [facility] Type (from [facility]): Peripheral IV Urinary Cath still in place: Yes Reason Cath still needed: urinary retention Assessment/Plan Hospital Course Patient is awake alert continues on vent patient is undergoing line holiday, attempted to do echo however patient refused, plan to repeat MARCIAL if patient agrees. Assessment/Plan -Persistent leukocytosis with Pseudomonas bacteremia, continue antibiotics per ID. Dr. Walton is following in infection disease consultation. -MDR Klebsiella urinary tract infection, completed treatment with amikacin. -Atrial fibrillation was rapid ventricular response, patient remains in sinus rhythm continue metoprolol and amiodarone. Dr. Scanlon is following in cardiology consultation. -S/p septic shock secondary to urinary tract infection, anterior neck soft tissue infection, and C. difficile colitis. -C-diff colitis,resolved. -Acute respiratory failure requiring intubation and ventilatory support. Dr. Lambert is following in pulmonology consultation. -S/p tracheostomy on 05/29/18. -Acute kidney injury on chronic kidney disease. Started on HD this admission with recovery of renal function. Dr. Mckeon is following in nephrology consultation. -Anemia of chronic inflammation, stool for OB is negative, status post blood transfusion. Continue Epogen. -Metabolic acidosis, resolved. -Acute diastolic congestive heart failure. -Paroxysmal atrial fibrillation -COPD -Dysphagia with PEG. -G-tube mild malfunction, changed by GI Dr. Carolina is following in gastroenterology consultation. -Obesity -Critical care myopathy Further recommendations based on clinical course. Plan of care discussed with Dr. Eisenberg. Result Diagram: 07/16/18 0821 07/16/18 0821 Results 24hrs Laboratory Tests Test 07/16/18 08:21 White Blood Count 12.2 H Red Blood Count 2.90 L Hemoglobin 9.2 L Hematocrit 30.6 L Mean Corpuscular Volume 105.5 H Mean Corpuscular Hemoglobin 31.7 Mean Corpuscular Hemoglobin Concent 30.1 L Red Cell Distribution Width 22.3 H Platelet Count 210 Mean Platelet Volume 10.6 H Immature Granulocytes % 0.700 H Neutrophils % 81.9 H Lymphocytes % 8.7 L Monocytes % 5.0 Eosinophils % 3.4 Basophils % 0.3 Nucleated Red Blood Cells % 0.0 Immature Granulocytes # 0.090 H Neutrophils # 10.0 H Lymphocytes # 1.1 Monocytes # 0.6 Eosinophils # 0.4 Basophils # 0.0 Nucleated Red Blood Cells # 0.0 Sodium Level 137 Potassium Level 3.6 Chloride Level 104 Carbon Dioxide Level 21 Anion Gap 12 Blood Urea Nitrogen 107 H Creatinine 2.09 H Est Glomerular Filtrat Rate mL/min Glucose Level 101 Calcium Level 9.0 Phosphorus Level 3.4 Magnesium Level 1.6 L Exam/Review of Systems Exam Vitals Vital Signs Date Temp Pulse Resp B/P (MAP) Pulse Ox O2 O2 Flow FiO2 Time Delivery Rate 07/16/18 68 26 98 30 13:50 07/16/18 97.4 112/56 11:09 (74) 07/15/18 Venturi 16:00 Mask Intake and Output 07/15/18 07/15/18 07/16/18 1515:00 23:00 07:00 IntakeIntake Total 2111.2 ml 1380 ml OutputOutput Total 300 ml 1000 ml BalanceBalance 1811.2 ml 380 ml Exam Constitutional: alert, oriented Neck: other (Tracheostomy) Respiratory: diminished breath sounds Cardiovascular: regular rate and rhythm Gastrointestinal: soft, non-tender, other (G-tube) Extremities: normal pulses Neurological: nl mental status Results Results 24hrs Laboratory Tests Test 07/16/18 08:21 White Blood Count 12.2 H Red Blood Count 2.90 L Hemoglobin 9.2 L Hematocrit 30.6 L Mean Corpuscular Volume 105.5 H Mean Corpuscular Hemoglobin 31.7 Mean Corpuscular Hemoglobin Concent 30.1 L Red Cell Distribution Width 22.3 H Platelet Count 210 Mean Platelet Volume 10.6 H Immature Granulocytes % 0.700 H Neutrophils % 81.9 H Lymphocytes % 8.7 L Monocytes % 5.0 Eosinophils % 3.4 Basophils % 0.3 Nucleated Red Blood Cells % 0.0 Immature Granulocytes # 0.090 H Neutrophils # 10.0 H Lymphocytes # 1.1 Monocytes # 0.6 Eosinophils # 0.4 Basophils # 0.0 Nucleated Red Blood Cells # 0.0 Sodium Level 137 Potassium Level 3.6 Chloride Level 104 Carbon Dioxide Level 21 Anion Gap 12 Blood Urea Nitrogen 107 H Creatinine 2.09 H Est Glomerular Filtrat Rate mL/min Glucose Level 101 Calcium Level 9.0 Phosphorus Level 3.4 Magnesium Level 1.6 L Medications Medication Current Medications IV Flush (NS 10 ml) 10 ml PRN IV ; Start 05/06/18 at 20:30 Zinc Sulfate (Zinc Sulfate) 220 mg DAILY GTB Last administered on 07/16/18 09:01; Admin Dose 220 MG; Start 05/07/18 at 09:00 Ondansetron HCl (Zofran Tab) 4 mg Q6H PRN GTB NAUSEA AND/OR VOMITING Last administered on 05/31/18 16:47; Admin Dose 4 MG; Start 05/07/18 at 00:15 Multivitamins (Multivitamin) 30 ml DAILY GTB Last administered on 07/16/18 09:02; Admin Dose 30 ML; Start 05/07/18 at 09:00 Miscellaneous Information (Pending Santyl Order For Wound Care) This patient goldman... PRN PRN XX WOUND CARE; Start 05/09/18 at 17:00 Famotidine (Pepcid) 20 mg DAILY PEG Last administered on 07/16/18 09:01; Admin Dose 20 MG; Start 05/23/18 at 09:00 Morphine Sulfate (morphine) 6 mg Q4H PRN PEG SEVERE PAIN LEVEL 7-10 Last a dministered on 07/16/18 06:09; Admin Dose 6 MG; Start 05/22/18 at 17:00 Acetaminophen (Tylenol Tab) 650 mg Q4H PRN PO MILD PAIN(1-3)OR ELEVATED TEMP Last administered on 07/16/18 00:42; Admin Dose 650 MG; Start 05/31/18 at 13:00 Metoclopramide HCl (Reglan) 5 mg Q6 IV Last administered on 07/16/18 11:31; Admin Dose 5 MG; Start 05/31/18 at 13:00 Collagenase (Santyl) 1 applic DAILY TOP Last administered on 07/16/18 09:01; Admin Dose 1 APPLIC; Start 06/01/18 at 09:00 Clonidine (Catapres) 0.1 mg Q6H PRN PO ELEVATED BLOOD PRESSURE Last administered on 07/09/18 09:08; Admin Dose 0.1 MG; Start 06/03/18 at 03:30 Bumetanide (Bumex) 1 mg BID DIURETICS GTB Last administered on 07/12/18at 05:23; Admin Dose 1 MG; Start 06/11/18 at 18:00; Status Hold Miscellaneous Information 1 ea NOTE XX ; Start 06/26/18 at 08:00 Dicyclomine HCl (Bentyl) 20 mg Q8 PO Last administered on 07/16/18 13:49; Adm in Dose 20 MG; Start 06/27/18 at 22:00 Cholestyramine Resin (Questran Light) 4 gm 0600,1200,1800,2300 GTB Last administered on 07/16/18 11:31; Admin Dose 4 GM; Start 06/27/18 at 18:00 Lorazepam (Ativan) 0.5 mg Q4 PRN IV ANXIETY Last administered on 07/13/18at 11:07; Admin Dose 0.5 MG; Start 07/01/18 at 14:00 Amiodarone HCl (Cordarone) 200 mg Q8 GTB Last administered on 07/16/18 13:48; Admin Dose 200 MG; Start 07/05/18 at 22:00 Metoprolol Tartrate (Lopressor) 50 mg Q8 GTB Last administered on 07/16/18 13:49; Admin Dose 50 MG; Start 07/05/18 at 22:00 Citric Acid/ Sodium Citrate (Bicitra) 60 ml Q8 PO Last administered on 07/16/18 13:50; Admin Dose 60 ML; Start 07/09/18 at 14:00 Amikacin Sulfate (Amikacin Iv Per Pharmacy) 1 ea NOTE XX ; Start 07/09/18 at 17:30 Vancomycin HCl (Vancomycin Oral Syringe) 125 mg Q6 GTB Last administered on 07/16/18 11:31; Admin Dose 125 MG; Start 07/09/18 at 18:00 Miscellaneous Information (*Order Clarification Bulletin) MEDICATION REQUIRES CLARIFICATI... Q8H XX ; Start 07/13/18 at 01:30 Epoetin Zen-epbx (Retacrit (Non-Esrd)) 10,000 unit MoWeFr@1700 SC Last administered on 07/15/18at 17:54; Admin Dose 10,000 UNIT; Start 07/13/18 at 17:00 Amikacin Sulfate 300 mg/Sodium Chloride 101.2 ml @ 101.4 mls/ hr Q48H IVPB Last administered on 07/15/18at 00:52; Admin Dose 101.4 MLS/HR; Start 07/14/18 at 23:00 Cefepime HCl 50 ml @ 100 mls/hr Q24H IVPB Last administered on 07/15/18at 20:53; Admin Dose 100 MLS/HR; Start 07/14/18 at 18:30 Vancomycin HCl (Vanco Iv Per Pharmacy) VANCOMYCIN PER PHARMACY PER PROTOCOL XX ; Start 07/15/18 at 13:30 Vancomycin HCl 1.5 gm/Sodium Chloride 250 ml @ 83.333 mls/ hr Q48H IVPB ; Start 07/17/18 at 17:00 GRISELDA DENNIS July 16, 2018 15:18
--- NOTE | 2018-07-16 17:45 | RADRPT ---
Echocardiogram Report Patient Name: RHONDA LAWSPatient ID: [id number] : 1945 (73y 6m)Study Date: 07/15/2018 2:21:30 PM Gender: FAccession #: [id number] Tech: [facility] Location: [address] Ref.Physician: EVANGELISTA SCANLON Height(Cm): BSA: Weight(Kg): Quality: AdequateOrder Physician: EVANGELISTA SCANLON Account #: Procedures: Echocardiographic Report: Transthoracic echocardiogram with complete 2D, M-Mode, and doppler examination. Indications: R/o endocarditis. PT REFUSAL. Measurements: 2D/M Mode Doppler Measurement Value Normal Range Measurement Value Normal Range LVIDd 2D 4.4 [ 3.8 - 5.2 ] cm AV Peak Rashel 167.0 [ 100.0 - 170.0 ] cm/sec LVIDs 2D 2.0 [ 2.2 - 3.5 ] cm AV Peak PG 11.0 [ 2.0 - 9.0 ] mmHg IVSd 2D 0.8 [ 0.6 - 0.9 ] cm LVOT Peak Rashel 136.0 [ 70.0 - 110.0 ] cm/sec AoR Diam 2D 2.7 [ 2.3 - 3.1 ] cm LVOT Peak PG 7.0 [ 2.0 - 6.0 ] mmHg LA Dimen 2D 4.5 [ 2.7 - 3.8 ] cm MV E Peak Rashel 162.0 [ 60.0 - 130.0 ] cm/sec MV E Peak PG 10.0 mmHg MV A Peak Rashel 96.0 [ 100.0 - 120.0 ] cm/sec MV A Peak PG 4.0 mmHg MV E/A 1.7 [ 0.8 - 1.5 ] ratio Lat E` Rashel 5.8 [ 10.0 - 15.0 ] cm/sec Lateral E/E` 28.1 [ 1.0 - 2.0 ] ratio TR Peak Rashel 2.8 [ 100.0 - 280.0 ] cm/sec TR Peak PG 32.0 mmHg RVSP 47.0 [ 10.0 - 36.0 ] mmHg RA Pressure 15.0 mmHg Findings: Left Ventricle: Normal left ventricular systolic function. Normal left ventricular cavity size. Normal left ventricular wall thickness. Ejection fraction is visually estimated at 60 %. Tissue Doppler/Mitral Doppler indices are consistent with pseudonormalization with mildly elevated left atrial pressure (Stage II diastolic dysfunction). Right Ventricle: Normal right ventricular size. Normal right ventricular systolic function. Left Atrium: There is mild enlargement of left atrium. Right Atrium: The right atrium is normal in size. Mitral Valve: Mild mitral leaflet calcification. Echodense structure in posterior leafleat region, differential includes calcification vs vegetation. Moderate mitral annular calcification. Moderate mitral valve regurgitation. Aortic Valve: No significant aortic stenosis or insufficiency. Aortic cusps appear mildly calcified. Tricuspid Valve: Normal appearance of the tricuspid valve. The estimated Peak RVSP is 47 mmHg. There is mild tricuspid regurgitation. Pulmonic Valve: Pulmonic valve not well visualized. Pericardium: Normal pericardium with no significant pericardial effusion. Aorta: Normal aortic root. IVC: Dilated IVC without respiratory collapse, however, patient on ventilator. Conclusions: Normal left ventricular systolic function. Normal left ventricular cavity size. Normal left ventricular wall thickness. Ejection fraction is visually estimated at 60 %. Tissue Doppler/Mitral Doppler indices are consistent with pseudonormalization with mildly elevated left atrial pressure (Stage II diastolic dysfunction). Normal right ventricular size. Normal right ventricular systolic function. There is mild enlargement of left atrium. The right atrium is normal in size. Mild mitral leaflet calcification. Echodense structure in posterior leafleat region, differential includes calcification vs vegetation. Moderate mitral annular calcification. Moderate mitral valve regurgitation. No significant aortic stenosis or insufficiency. The estimated Peak RVSP is 47 mmHg. There is mild tricuspid regurgitation. Normal pericardium with no significant pericardial effusion. Electronically Signed By: Evangelista Scanlon 2018-07-16 17:44:47 PDT
[2018-07-16] MEDS: CEFEPIME 2GM/50 ML (PMX) 50 ML IVPB SCH (17:55)
[2018-07-16] MEDS: AMIKACIN 300 MG in SOD CHLORIDE 0.9% 100 ML IVPB SCH (23:00)
[2018-07-17] VITALS (22 sets, daily range): BP systolic 119–148; BP diastolic 55–75; PULSE 61–67; RESP 17–25
[2018-07-17] MEDS: METOCLOPRAMIDE 10 MG INJ IV SCH ×4 (00:08→17:36)
[2018-07-17] MEDS: VANCOMYCIN HCL 250 MG/5ML POSYG GTB SCH ×4 (00:08→17:40)
[2018-07-17] MEDS: [UNRECOGNIZED DRUG - REMARK] XX SCH (00:49)
[2018-07-17] MEDS: AMIODARONE 200 MG TAB GTB SCH ×3 (05:41→22:13)
[2018-07-17] MEDS: METOPROLOL 50 MG TAB GTB SCH ×3 (05:42→22:13)
[2018-07-17] MEDS: CITRIC ACID/NA CITRATE 30 ML CUP PO SCH ×3 (05:42→22:12)
[2018-07-17] MEDS: DICYCLOMINE 10 MG CAP PO SCH ×3 (05:42→22:13)
[2018-07-17] MEDS: CHOLESTYRAMINE (LIGHT) 4 GM PACKET GTB SCH ×4 (05:43→22:13)
--- NOTE | 2018-07-17 07:57 | PN ---
Date/Time of Note Date/Time of Note DATE: 07/17/18 TIME: 07:54 Assessment/Plan VTE Pro[place]axis [place] [facility] [place]: 7 [place]CD applied [place] [facility] [place] SCD contraindicated: other Pharmacological prophylaxis: other Pharm contraindication: other Lines/Catheters [facility] Peripheral IV Urinary Cath still in place: Yes Reason Cath still needed: urinary retention, skin wounds contaminated by urine Assessment/Plan Assessment/Plan -Persistent leukocytosis with Pseudomonas bacteremia, continue antibiotics per ID. Dr. Walton is following in infection disease consultation. -MDR Klebsiella urinary tract infection, completed treatment with amikacin. -Atrial fibrillation was rapid ventricular response, patient remains in sinus rhythm continue metoprolol and amiodarone. Dr. Scanlon is following in cardiology consultation. -S/p septic shock secondary to urinary tract infection, anterior neck soft tissue infection, and C. difficile colitis. -C-diff colitis,resolved. -Acute respiratory failure requiring intubation and ventilatory support. Dr. Lambert is following in pulmonology consultation. -S/p tracheostomy on 05/29/18. -Acute kidney injury on chronic kidney disease. Started on HD this admission with recovery of renal function. Dr. Mckeon is following in nephrology consultation. -Anemia of chronic inflammation, stool for OB is negative, status post blood transfusion. Continue Epogen. -Metabolic acidosis, resolved. -Acute diastolic congestive heart failure. -Paroxysmal atrial fibrillation -COPD -Dysphagia with PEG. -G-tube mild malfunction, changed by GI Dr. Carolina is following in gastroenterology consultation. -Obesity -Critical care myopathy Further recommendations based on clinical course. Plan of care discussed with Dr. Eisenberg. Result Diagram: 07/17/18 0632 07/17/18 0632 Results 24hrs Laboratory Tests Test 07/16/18 08:21 07/17/18 06:32 White Blood Count 12.2 H 11.7 H Red Blood Count 2.90 L 2.79 L Hemoglobin 9.2 L 9.0 L Hematocrit 30.6 L 29.3 L Mean Corpuscular Volume 105.5 H 105.0 H Mean Corpuscular Hemoglobin 31.7 32.3 Mean Corpuscular Hemoglobin Concent 30.1 L 30.7 L Red Cell Distribution Width 22.3 H 21.6 H Platelet Count 210 225 Mean Platelet Volume 10.6 H 10.5 H Immature Granulocytes % 0.700 H 0.800 H Neutrophils % 81.9 H 82.9 H Lymphocytes % 8.7 L 7.5 L Monocytes % 5.0 5.3 Eosinophils % 3.4 3.2 Basophils % 0.3 0.3 Nucleated Red Blood Cells % 0.0 0.0 Immature Granulocytes # 0.090 H 0.090 H Neutrophils # 10.0 H 9.7 H Lymphocytes # 1.1 0.9 Monocytes # 0.6 0.6 Eosinophils # 0.4 0.4 Basophils # 0.0 0.0 Nucleated Red Blood Cells # 0.0 0.0 Sodium Level 137 136 Potassium Level 3.6 3.7 Chloride Level 104 103 Carbon Dioxide Level 21 21 Anion Gap 12 12 Blood Urea Nitrogen 107 H 104 H Creatinine 2.09 H 2.18 H Est Glomerular Filtrat Rate mL/min Glucose Level 101 106 Calcium Level 9.0 9.3 Phosphorus Level 3.4 3.9 Magnesium Level 1.6 L 2.0 Subjective 24 Hr Interval Summary Subjective hx not possible: pt non-verbal Constitutional: requiring O2 Exam/Review of Systems Exam Vitals Vital Signs Date Temp Pulse Resp B/P (MAP) Pulse Ox O2 O2 Flow FiO2 Time Delivery Rate 07/17/18 98.3 66 22 125/60 97 Trach 07:14 (81) Collar 07/17/18 30 05:20 Intake and Output 07/16/18 07/16/18 07/17/18 1515:00 23:00 07:00 IntakeIntake Total 1380 ml 101.2 ml OutputOutput Total 700 ml BalanceBalance 680 ml 101.2 ml Constitutional: alert, non-verbal, frail Psych: nl mood/affect Eyes: nl lids, nl sclera ENMT: nl external ears & nose Neck: other Respiratory: diminished breath sounds Cardiovascular: nl pulses, other Gastrointestinal: soft, other Musculoskeletal: muscle weakness, range of motion Extremities: calf tenderness Neurological: confused Skin: nl turgor Lymph: nontender Results Results 24hrs Laboratory Tests Test 07/16/18 08:21 07/17/18 06:32 White Blood Count 12.2 H 11.7 H Red Blood Count 2.90 L 2.79 L Hemoglobin 9.2 L 9.0 L Hematocrit 30.6 L 29.3 L Mean Corpuscular Volume 105.5 H 105.0 H Mean Corpuscular Hemoglobin 31.7 32.3 Mean Corpuscular Hemoglobin Concent 30.1 L 30.7 L Red Cell Distribution Width 22.3 H 21.6 H Platelet Count 210 225 Mean Platelet Volume 10.6 H 10.5 H Immature Granulocytes % 0.700 H 0.800 H Neutrophils % 81.9 H 82.9 H Lymphocytes % 8.7 L 7.5 L Monocytes % 5.0 5.3 Eosinophils % 3.4 3.2 Basophils % 0.3 0.3 Nucleated Red Blood Cells % 0.0 0.0 Immature Granulocytes # 0.090 H 0.090 H Neutrophils # 10.0 H 9.7 H Lymphocytes # 1.1 0.9 Monocytes # 0.6 0.6 Eosinophils # 0.4 0.4 Basophils # 0.0 0.0 Nucleated Red Blood Cells # 0.0 0.0 Sodium Level 137 136 Potassium Level 3.6 3.7 Chloride Level 104 103 Carbon Dioxide Level 21 21 Anion Gap 12 12 Blood Urea Nitrogen 107 H 104 H Creatinine 2.09 H 2.18 H Est Glomerular Filtrat Rate mL/min Glucose Level 101 106 Calcium Level 9.0 9.3 Phosphorus Level 3.4 3.9 Magnesium Level 1.6 L 2.0 Medications Medication Current Medications IV Flush (NS 10 ml) 10 ml PRN IV ; Start 05/06/18 at 20:30 Zinc Sulfate (Zinc Sulfate) 220 mg DAILY GTB Last administered on 07/16/18 09:01; Admin Dose 220 MG; Start 05/07/18 at 09:00 Ondansetron HCl (Zofran Tab) 4 mg Q6H PRN GTB NAUSEA AND/OR VOMITING Last administered on 05/31/18at 16:47; Admin Dose 4 MG; Start 05/07/18 at 00:15 Multivitamins (Multivitamin) 30 ml DAILY GTB Last administered on 07/16/18 09:02; Admin Dose 30 ML; Start 05/07/18 at 09:00 Miscellaneous Information (Pending Santyl Order For Wound Care) This patient goldman... PRN PRN XX WOUND CARE; Start 05/09/18 at 17:00 Famotidine (Pepcid) 20 mg DAILY PEG Last administered on 07/16/18 09:01; Admin Dose 20 MG; Start 05/23/18 at 09:00 Morphine Sulfate (morphine) 6 mg Q4H PRN PEG SEVERE PAIN LEVEL 7-10 Last administered on 07/16/18 06:09; Admin Dose 6 MG; Start 05/22/18 at 17:00 Acetaminophen (Tylenol Tab) 650 mg Q4H PRN PO MILD PAIN(1-3)OR ELEVATED TEMP Last administered on 07/16/18 00:42; Admin Dose 650 MG; Start 05/31/18 at 13:00 Metoclopramide HCl (Reglan) 5 mg Q6 IV Last administered on 07/17/18 05:42; Admin Dose 5 MG; Start 05/31/18 at 13:00 Collagenase (Santyl) 1 applic DAILY TOP Last administered on 07/16/18 09:01; Admin Dose 1 APPLIC; Start 06/01/18 at 09:00 Clonidine (Catapres) 0.1 mg Q6H PRN PO ELEVATED BLOOD PRESSURE Last administered on 07/09/18 09:08; Admin Dose 0.1 MG; Start 06/03/18 at 03:30 Bumetanide (Bumex) 1 mg BID DIURETICS GTB Last administered on 07/12/18 05:23; Admin Dose 1 MG; Start 06/11/18 at 18:00; Status Hold Miscellaneous Information 1 ea NOTE XX ; Start 06/26/18 at 08:00 Dicyclomine HCl (Bentyl) 20 mg Q8 PO Last administered on 07/17/18 05:42; Admin Dose 20 MG; Start 06/27/18 at 22:00 Cholestyramine Resin (Questran Light) 4 gm 0600,1200,1800,2300 GTB Last administered on 07/17/18 05:43; Admin Dose 4 GM; Start 06/27/18 at 18:00 Lorazepam (Ativan) 0.5 mg Q4 PRN IV ANXIETY Last administered on 07/13/18 11:07; Admin Dose 0.5 MG; Start 07/01/18 at 14:00 Amiodarone HCl (Cordarone) 200 mg Q8 GTB Last administered on 07/17/18 05:41; Admin Dose 200 MG; Start 07/05/18 at 22:00 Metoprolol Tartrate (Lopressor) 50 mg Q8 GTB Last administered on 07/17/18 05:42; Admin Dose 50 MG; Start 07/05/18 at 22:00 Citric Acid/ Sodium Citrate (Bicitra) 60 ml Q8 PO Last administered on 07/17/18at 05:42; Admin Dose 60 ML; Start 07/09/18 at 14:00 Amikacin Sulfate (Amikacin Iv Per Pharmacy) 1 ea NOTE XX ; Start 07/09/18 at 17:30 Vancomycin HCl (Vancomycin Oral Syringe) 125 mg Q6 GTB Last administered on 07/17/18at 05:42; Admin Dose 125 MG; Start 07/09/18 at 18:00 Miscellaneous Information (*Order Clarification Bulletin) MEDICATION REQUIRES CLARIFICATI... Q8H XX ; Start 07/13/18 at 01:30 Epoetin Zen-epbx (Retacrit (Non-Esrd)) 10,000 unit MoWeFr@1700 SC Last administered on 07/15/18at 17:54; Admin Dose 10,000 UNIT; Start 07/13/18 at 17:00 Amikacin Sulfate 300 mg/Sodium Chloride 101.2 ml @ 101.4 mls/ hr Q48H IVPB Last administered on 07/16/18at 23:00; Admin Dose 101.4 MLS/HR; Start 07/14/18 at 23:00 Cefepime HCl 50 ml @ 100 mls/hr Q24H IVPB Last administered on 07/16/18at 17:55; Admin Dose 100 MLS/HR; Start 07/14/18 at 18:30 Vancomycin HCl (Vanco Iv Per Pharmacy) VANCOMYCIN PER PHARMACY PER PROTOCOL XX ; Start 07/15/18 at 13:30 Vancomycin HCl 1.5 gm/Sodium Chloride 250 ml @ 83.333 mls/ hr Q48H IVPB ; Start 07/17/18 at 17:00 KERON MORAN July 17, 2018 07:57
[2018-07-17] MEDS: ZINC SULFATE 220 MG CAP GTB SCH (09:38)
[2018-07-17] MEDS: COLLAGENASE 5 GM (UD JAR) TOP SCH (09:39)
[2018-07-17] MEDS: MULTIVITAMINS 30 ML CUP GTB SCH (09:39)
[2018-07-17] MEDS: FAMOTIDINE 20 MG TAB PEG SCH (09:39)
--- NOTE | 2018-07-17 11:19 | CONS ---
Assessment/Plan Assessment/Plan Hospital Course (Demo Recall) Septic as well as hemorrhagic shock, improving Acute respiratory failure status post intubation and repeat tracheostomy Acute blood loss anemia History of respiratory failure status post decannulation Preserved ejection fraction echocardiogram 05/10/2018 Paroxysmal atrial fibrillation Acute kidney injury -Patient agreed to echocardiogram completion yesterday. There is an echodense structure on the mitral valve, differential includes calcification, vegetation. On review of previous records when patient was at [facility] in June 2017, when patient was in outside facility, patient was being treated for mitral valve endocarditis at that time. Given patient with recurrent positive blood cultu res, as well as history of mitral valve endocarditis, would treat for endocarditis. This was discussed with infectious disease yesterday. -Blood pressure trend overall stable. Continue beta-tin as tolerated -Patient with paroxysmal atrial fibrillation, currently in sinus rhythm -Continue amiodarone as tolerated -Vent management as per pulmonary -Fluid management and electrolytes as per renal -Antibiotics as per infectious disease -No anticoagulation given recurrent anemia requiring blood transfusions Consultation Date/Type/Reason Admit Date/Time May 06, 2018 at 17:38 Initial Consult Date 05/10/18 Type of Consult Cardiology Requesting Provider: ROLAND GIRON MD Date/Time of Note DATE: 07/17/18 TIME: 11:16 24 HR Interval Summary Free Text/Dictation Patient seen and examined. Not answering questions today Exam/Review of Systems Vital Signs Vitals Vital Signs Date Temp Pulse Resp B/P (MAP) Pulse Ox O2 O2 Flow FiO2 Time Delivery Rate 07/17/18 61 25 98 30 09:08 07/17/18 98.3 125/60 Trach 07:14 (81) Collar Intake and Output 07/16/18 07/16/18 07/17/18 1515:00 23:00 07:00 IntakeIntake Total 1380 ml 101.2 ml OutputOutput Total 700 ml BalanceBalance 680 ml 101.2 ml Exam Constitutional: alert (No apparent distress, not answering questions) Head: normocephalic Neck: other (Tracheostomy) Respiratory: other (Coarse breath sounds bilaterally, no wheezing) Cardiovascular: regular rate and rhythm (S1-S2 heard) Gastrointestinal: soft, non-tender, bowel sounds Extremities: edema Labs Result Diagram: 07/17/18 0632 07/17/18 0632 Results 24hrs Laboratory Tests Test 07/17/18 06:32 White Blood Count 11.7 H Red Blood Count 2.79 L Hemoglobin 9.0 L Hematocrit 29.3 L Mean Corpuscular Volume 105.0 H Mean Corpuscular Hemoglobin 32.3 Mean Corpuscular Hemoglobin Concent 30.7 L Red Cell Distribution Width 21.6 H Platelet Count 225 Mean Platelet Volume 10.5 H Immature Granulocytes % 0.800 H Neutrophils % 82.9 H Lymphocytes % 7.5 L Monocytes % 5.3 Eosinophils % 3.2 Basophils % 0.3 Nucleated Red Blood Cells % 0.0 Immature Granulocytes # 0.090 H Neutrophils # 9.7 H Lymphocytes # 0.9 Monocytes # 0.6 Eosinophils # 0.4 Basophils # 0.0 Nucleated Red Blood Cells # 0.0 Sodium Level 136 Potassium Level 3.7 Chloride Level 103 Carbon Dioxide Level 21 Anion Gap 12 Blood Urea Nitrogen 104 H Creatinine 2.18 H Est Glomerular Filtrat Rate mL/min Glucose Level 106 Calcium Level 9.3 Phosphorus Level 3.9 Magnesium Level 2.0 Medications Medications Current Medications IV Flush (NS 10 ml) 10 ml PRN IV ; Start 05/06/18 at 20:30 Zinc Sulfate (Zinc Sulfate) 220 mg DAILY GTB Last administered on 07/17/18 09:38; Admin Dose 220 MG; Start 05/07/18 at 09:00 Ondansetron HCl (Zofran Tab) 4 mg Q6H PRN GTB NAUSEA AND/OR VOMITING Last administered on 05/31/18at 16:47; Admin Dose 4 MG; Start 05/07/18 at 00:15 Multivitamins (Multivitamin) 30 ml DAILY GTB Last administered on 07/17/18 09:39; Admin Dose 30 ML; Start 05/07/18 at 09:00 Miscellaneous Information (Pending Santyl Order For Wound Care) This patient goldman... PRN PRN XX WOUND CARE; Start 05/09/18 at 17:00 Famotidine (Pepcid) 20 mg DAILY PEG Last administered on 07/17/18 09:39; Admin Dose 20 MG; Start 05/23/18 at 09:00 Morphine Sulfate (morphine) 6 mg Q4H PRN PEG SEVERE PAIN LEVEL 7-10 Last administered on 07/16/18 06:09; Admin Dose 6 MG; Start 05/22/18 at 17:00 Acetaminophen (Tylenol Tab) 650 mg Q4H PRN PO MILD PAIN(1-3)OR ELEVATED TEMP Last administered on 07/16/18 00:42; Admin Dose 650 MG; Start 05/31/18 at 13:00 Metoclopramide HCl (Reglan) 5 mg Q6 IV Last administered on 07/17/18 05:42; Admin Dose 5 MG; Start 05/31/18 at 13:00 Collagenase (Santyl) 1 applic DAILY TOP Last administered on 07/17/18 09:39; Admin Dose 1 APPLIC; Start 06/01/18 at 09:00 Clonidine (Catapres) 0.1 mg Q6H PRN PO ELEVATED BLOOD PRESSURE Last administered on 07/09/18 09:08; Admin Dose 0.1 MG; Start 06/03/18 at 03:30 Bumetanide (Bumex) 1 mg BID DIURETICS GTB Last administered on 07/12/18 05:23; Admin Dose 1 MG; Start 06/11/18 at 18:00; Status Hold Miscellaneous Information 1 ea NOTE XX ; Start 06/26/18 at 08:00 Dicyclomine HCl (Bentyl) 20 mg Q8 PO Last administered on 07/17/18 05:42; Admin Dose 20 MG; Start 06/27/18 at 22:00 Cholestyramine Resin (Questran Light) 4 gm 0600,1200,1800,2300 GTB Last administered on 07/17/18 05:43; Admin Dose 4 GM; Start 06/27/18 at 18:00 Lorazepam (Ativan) 0.5 mg Q4 PRN IV ANXIETY Last administered on 07/13/18 11:07; Admin Dose 0.5 MG; Start 07/01/18 at 14:00 Amiodarone HCl (Cordarone) 200 mg Q8 GTB Last administered on 07/17/18 05:41; Admin Dose 200 MG; Start 07/05/18 at 22:00 Metoprolol Tartrate (Lopressor) 50 mg Q8 GTB Last administered on 07/17/18 05:42; Admin Dose 50 MG; Start 07/05/18 at 22:00 Citric Acid/ Sodium Citrate (Bicitra) 60 ml Q8 PO Last administered on 07/17/18 05:42; Admin Dose 60 ML; Start 07/09/18 at 14:00 Amikacin Sulfate (Amikacin Iv Per Pharmacy) 1 ea NOTE XX ; Start 07/09/18 at 1 7:30 Vancomycin HCl (Vancomycin Oral Syringe) 125 mg Q6 GTB Last administered on 07/17/18at 05:42; Admin Dose 125 MG; Start 07/09/18 at 18:00 Epoetin Zen-epbx (Retacrit (Non-Esrd)) 10,000 unit MoWeFr@1700 SC Last administered on 07/15/18at 17:54; Admin Dose 10,000 UNIT; Start 07/13/18 at 17:00 Amikacin Sulfate 300 mg/Sodium Chloride 101.2 ml @ 101.4 mls/ hr Q48H IVPB Last administered on 07/16/18at 23:00; Admin Dose 101.4 MLS/HR; Start 07/14/18 at 23:00 Cefepime HCl 50 ml @ 100 mls/hr Q24H IVPB Last administered on 07/16/18at 17:55; Admin Dose 100 MLS/HR; Start 07/14/18 at 18:30 Vancomycin HCl (Vanco Iv Per Pharmacy) VANCOMYCIN PER PHARMACY PER PROTOCOL XX ; Start 07/15/18 at 13:30 Vancomycin HCl 1.5 gm/Sodium Chloride 250 ml @ 83.333 mls/ hr Q48H IVPB ; Start 07/17/18 at 17:00 Evangelista Scanlon DO July 17, 2018 11:19
--- NOTE | 2018-07-17 12:13 | PN ---
DATE: 07/17/2018 SUBJECTIVE: The patient is stable, no events overnight. OBJECTIVE: VITAL SIGNS: Blood pressure is 125/60, pulse 86, temperature 98.3. HEENT: Head is normocephalic. NECK: Supple. HEART: Regular rate. LUNGS: Show diminished breath sounds at the base. ABDOMEN: Soft, nontender to palpation without rebound or guarding. EXTREMITIES: Negative for clubbing, cyanosis. Trace edema. DERMATOLOGIC: No rashes. MUSCULOSKELETAL: No joint effusion. NEUROLOGIC: No change in exam. MEDICATIONS: Reviewed. LABORATORY DATA: Reviewed. ASSESSMENT AND PLAN: 1. Nonoliguric acute kidney injury with previous baseline creatinine of 2.0 mg/dL. Etiology of acut e kidney injury was initially secondary to acute tubular necrosis. The patient was on hemodialysis f or approximately 2 weeks. The patient showed adequate renal recovery and Juan catheter was remove d. The patient, however, had a recurrent acute kidney injury due to underlying sepsis. At this poin t, continue current treatment plans, supportive care, renally dose all medications, no immediate need for renal replacement therapy. 2. Hypernatremia, improved. Continue free water flushes. 3. Hypokalemia. Continue to monitor and replete as needed. 4. Hypomagnesemia. We will continue to monitor and replete as needed. 5. Metabolic acidosis, improved. Continue Bicitra. 6. Volume overload. Continue intermittent diuretic therapy as needed. 7. Anemia. Continue to monitor hemoglobin and hematocrit levels. Continue Epogen. 8. Ventilator-dependent respiratory failure. Vent settings have been reviewed. Continue to monitor . Follow up with pulmonary. 9. Sepsis. Continue current antibiotic regimen. Cultures were reviewed. Follow up with infectious disease. 10. Dysphagia. Continue tube feeding. 11. Lower extremity wounds. Continue wound care. Dictated By: JEANA BANSAL DO NR/NTS Conf#: [id number] DID#: [id number] CC: QUINTEN UMAÑA MD; ROLAND GIRON MD;*EndCC*
[2018-07-17] MEDS ORDERED: VANCOMYCIN HCL 1.5 GM in SOD CHLORIDE 0.9% 250 ML IVPB SCH ×2 (15:00→17:00)
--- NOTE | 2018-07-17 17:27 | CONS ---
Assessment/Plan Assessment/Plan Hospital Course (Demo Recall) # sepsis, leukocytosis, SIRS, pulmonary, cardiac - recurrent leukocytosis due to bacteremia (below) - s/p septic shock due to pneumonia and C diff colitis - acute on chronic hypoxic respiratory failure, persistent - s/p reintubation 05/12/2018 - s/p re-do trach on 05/29/2018 - recurrent colonization of the anterior neck wound with ESBL+kleb, MRSA, GBS, corynebacteria on 05/06/2018, s/p meropenem - h/o pneumonia vs. colonization of the airway by pseudomonas and ESBL+klebsiella - h/o possible, recurrent HCAP due to pseudomonas and ESBL+klebsiella - h/o recurrent HCAP due to MRSA and Enterobacter (culture of tracheal aspirate on 07/16/2017 that was collected at [facility]) . Pt took vancomycin and ceftazidime - h/o decannulation prior to admission - h/o tracheostomy on 06/11/2017 - h/o SIRS from UGIB in 2018 - h/o thoracentesis on 07/18/2017, transudative (protein <2, LDH 279) - h/o bleeding from the trach site in 2018 - h/o septic shock due to pneumonia, ARDS, bacteremia, fungemia in 2018 - h/o ARDS in 2018 - h/o smoking - COPD - h/o ILD per medical record - h/o PAF, improved # GI - possible ileus or enterocolitis on CT abd/pel 06/15/2018-->follow up CT on 07/15/2018 showed no evidence of urolithiasis, obstructive uropathy or diverticulitis; it showed small to moderate ascites - C diff colitis, diagnosed on 05/11/2018. Pt's on pGT vancomycin induction followed by taper (05/11/2018-); Pt previously took IV metronidazole (05/11/2018- 05/29/2018; restart 05/30/2018-06/05/18) too - h/o intermittent diarrhea, Pt had multiple negative C. diff tests at [facility] at OSH in the past; none was positive until 05/11/2018 - dysphagia - h/o PEG placement 06/13/2018 - protein calorie malnutrition - h/o coffee ground emesis/UGIB on 12/23/2017 due to deep ulceration of distal esophagus and gastritis on EGD 12/26/2017. No e/o H. pylori - h/o possible appendicitis on CT on 11/22/2017, Pt took ertapenem (11/24/2017- 12/01/2017) - h/o extensive adhesions lower abdominal and pelvis between small bowel to each other and to colon and to abdominal wall, anterior pelvic wall chronic abscess secondary to probably an old perforated diverticulitis, torsion of small bowel around these dense adhesion causing multiple obstructive points - h/o laparoscopic exploration and extensive lysis of adhesions and drainage of anterior pelvic wall abscess 09/16/2017. Cultures were negative, no e/o malignancy. Pt took pip/tazo (09/16/2017-09/26/2017) - h/o EGD and exchange of PEG on 09/01/2017 - h/o partial obstruction mid jejunum in L anterior central pelvis with suggestion of a 3 cm soft tissue mass on CT 08/28/2017 - h/o internal stomal deep ulcer behind the internal bumper, gastritis and esophagitis, Rodriguez's cannot be ruled out, per EGD with biopsy 07/23/2017 - h/o GIB s/p flex sig showed polyp; stool OB negative on 06/29/17 - h/o stool OB positive status - h/o SBO and ileus due to pain meds - h/o mildly elevated CEA # renal/ - recurrent UTI due to pseudomonas (culture on 07/09/2018)-->Garza catheter was replaced on 07/14/2018 - s/p UTI due to MDR, CRE-klebsiella on 06/15/2018. S/p renally dosed amikacin for klebsiella in her urine culture (06/17-06/22/2018) - s/p UTI due to pseudomonas and ESBL+klebsiella on 06/09/2018, Pt took one dose of fosfomycin on 06/10/2018 and cipro 06/12-06/15/2018 - anasarca - started on HD on 05/15/2018, via Juan in R groin - recurrent NATHAN on CKD - 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 Her strain of CRE was sensitive to colistin, Avycaz, and Vabomere but resistant to Zerbaxa (reported on 05/19/2018) - metabolic acidosis - adrenal insufficiency - h/o vaginal bleed in 2018 - h/o colonization of urinary tract by ESBL+klebsiella, VRE - h/o recurrent, symptomatic UTI due to carbapenem-resistant kleb (MDR strain) per urine culture 10/04/17, 10/09/17, 10/21/2017, P took colistin (10/09/2017- 10/15/2017), fosfomycin for carbapenemase-producing klebsiella and VRE on 10/25/2017 and 10/28/2017 - h/o funguria - h/o urinary retention # bloodstream infections - Bacteremia d/t pseudomonas aeruginosa 07/09/18, 07/10/18, 07/11/18, 07/12/18 and 07/13/18. Associated with PICC because the blood culture from PICC and phlebotomy on 07/13/2018 both grew the same bacteria. The tip of PICC that was removed also grew the same bacteria in culture 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 improved. Probable manifestation of endocarditis. Pt declined MRI on 08/06/2017 - h/o infection of R toes due to pseudomonas. coagulase negative Staph likely a colonizer - h/o intertrigo of the groin, resolved with nystatin powder - h/o scabies, locally crusted lesion over L scapula, s/p permethrin cream and pGT ivermectin on 08/11/2017, 08/12/2017, 08/19/2017. Repeat skin scraping on 08/21/2017 was negative for scabies # psych, neuro - decreased hearing b/l - s/p acute toxic metabolic encephalopathy - h/o critical illness polyneuropathy - anxiety/depression, bipolar d/o, seen by Psychiatry in the past - chronic pain syndrome - h/o medical non-compliance: she would refuse her medications, treatment and straight catheterization in 2018 # hematological, vascular - chronic anemia requiring blood transfusion intermittently - macrocytic anemia - aneurysmal dilatation of the distal aorta visualized on CT 06/15/2018 - PVD Recommendations: - ordered: repeat blood cultures daily until blood cultures clear - transthoracic echo when Pt is agreeable to r/o endocarditis - continue amikacin IV (07/09/2018-). Pt had a strain of pseudomonas that was resistant to all except for aminoglycoside - continue renally dosed cefepime (07/14/2018-); Pt needs double coverage because amikacin alone has not cleared bacteremia - d/c renally dosed vancomycin IV (07/15/2018-). coag negative Staph in blood culture was likely contaminant - continue vanco pGT (07/09/18/ - ) because Pt has h/o severe C diff colitis. S/p IV metronidazole (07/09/18-07/15/18) Management d/w patient and her RT Consultation Date/Type/Reason Admit Date/Time May 06, 2018 at 17:38 Initial Consult Date 05/10/18 Type of Consult ID Requesting Provider: ROLAND GIRON MD Date/Time of Note DATE: 07/17/18 TIME: 17:24 24 HR Interval Summary Subjective hx not possible: pt non-verbal, pt critical, pt critical status Exam/Review of Systems Exam Vitals Vital Signs Date Temp Pulse Resp B/P (MAP) Pulse Ox O2 O2 Flow FiO2 Time Delivery Rate 07/17/18 63 23 99 30 15:59 07/17/18 97.8 133/67 Trach 15:19 (89) Collar Intake and Output 07/16/18 07/16/18 07/17/18 1515:00 23:00 07:00 IntakeIntake Total 1380 ml 101.2 ml OutputOutput Total 700 ml BalanceBalance 680 ml 101.2 ml Constitutional: non-verbal, frail Psych: confusion Head: normocephalic, atraumatic Eyes: nl conjunctiva, nl lids, nl sclera ENMT: nl external ears & nose, nl nasal mucosa & septum Neck: other (trach) Respiratory: crackles/rales, diminished breath sounds Cardiovascular: regular rate and rhythm, nl pulses Gastrointestinal: soft ( ), tender (distended) Genitourinary - Female: other (FC) Musculoskeletal: nl extremities to inspection Extremities: edema Neurological: lethargic, other (functional quadriplegia) Skin: rash or lesions (stage II decub), ecchymosis Results Result Diagram: 07/17/18 0632 07/17/18 0632 Results 24hrs Laboratory Tests Test 07/17/18 06:32 White Blood Count 11.7 H Red Blood Count 2.79 L Hemoglobin 9.0 L Hematocrit 29.3 L Mean Corpuscular Volume 105.0 H Mean Corpuscular Hemoglobin 32.3 Mean Corpuscular Hemoglobin Concent 30.7 L Red Cell Distribution Width 21.6 H Platelet Count 225 Mean Platelet Volume 10.5 H Immature Granulocytes % 0.800 H Neutrophils % 82.9 H Lymphocytes % 7.5 L Monocytes % 5.3 Eosinophils % 3.2 Basophils % 0.3 Nucleated Red Blood Cells % 0.0 Immature Granulocytes # 0.090 H Neutrophils # 9.7 H Lymphocytes # 0.9 Monocytes # 0.6 Eosinophils # 0.4 Basophils # 0.0 Nucleated Red Blood Cells # 0.0 Sodium Level 136 Potassium Level 3.7 Chloride Level 103 Carbon Dioxide Level 21 Anion Gap 12 Blood Urea Nitrogen 104 H Creatinine 2.18 H Est Glomerular Filtrat Rate mL/min Glucose Level 106 Calcium Level 9.3 Phosphorus Level 3.9 Magnesium Level 2.0 Medications Medication Current Medications IV Flush (NS 10 ml) 10 ml PRN IV ; Start 05/06/18 at 20:30 Zinc Sulfate (Zinc Sulfate) 220 mg DAILY GTB Last administered on 07/17/18at 09:38; Admin Dose 220 MG; Start 05/07/18 at 09:00 Ondansetron HCl (Zofran Tab) 4 mg Q6H PRN GTB NAUSEA AND/OR VOMITING Last administered on 05/31/18at 16:47; Admin Dose 4 MG; Start 05/07/18 at 00:15 Multivitamins (Multivitamin) 30 ml DAILY GTB Last administered on 07/17/18 09:39; Admin Dose 30 ML; Start 05/07/18 at 09:00 Miscellaneous Information (Pending Santyl Order For Wound Care) This patient goldman... PRN PRN XX WOUND CARE; Start 05/09/18 at 17:00 Famotidine (Pepcid) 20 mg DAILY PEG Last administered on 07/17/18 09:39; Admin Dose 20 MG; Start 05/23/18 at 09:00 Morphine Sulfate (morphine) 6 mg Q4H PRN PEG SEVERE PAIN LEVEL 7-10 Last administered on 07/16/18 06:09; Admin Dose 6 MG; Start 05/22/18 at 17:00 Acetaminophen (Tylenol Tab) 650 mg Q4H PRN PO MILD PAIN(1-3)OR ELEVATED TEMP Last administered on 07/16/18 00:42; Admin Dose 650 MG; Start 05/31/18 at 13:00 Metoclopramide HCl (Reglan) 5 mg Q6 IV Last administered on 07/17/18 12:27; Admin Dose 5 MG; Start 05/31/18 at 13:00 Collagenase (Santyl) 1 applic DAILY TOP Last administered on 07/17/18 09:39; Admin Dose 1 APPLIC; Start 06/01/18 at 09:00 Clonidine (Catapres) 0.1 mg Q6H PRN PO ELEVATED BLOOD PRESSURE Last administered on 07/09/18 09:08; Admin Dose 0.1 MG; Start 06/03/18 at 03:30 Bumetanide (Bumex) 1 mg BID DIURETICS GTB Last administered on 07/12/18 05:23; Admin Dose 1 MG; Start 06/11/18 at 18:00; Status Hold Miscellaneous Information 1 ea NOTE XX ; Start 06/26/18 at 08:00 Dicyclomine HCl (Bentyl) 20 mg Q8 PO Last administered on 07/17/18 14:53; Admin Dose 20 MG; Start 06/27/18 at 22:00 Cholestyramine Resin (Questran Light) 4 gm 0600,1200,1800,2300 GTB Last administered on 07/17/18 12:27; Admin Dose 4 GM; Start 06/27/18 at 18:00 Lorazepam (Ativan) 0.5 mg Q4 PRN IV ANXIETY Last administered on 07/13/18 11:07; Admin Dose 0.5 MG; Start 07/01/18 at 14:00 Amiodarone HCl (Cordarone) 200 mg Q8 GTB Last administered on 07/17/18 14:52; Admin Dose 200 MG; Start 07/05/18 at 22:00 Metoprolol Tartrate (Lopressor) 50 mg Q8 GTB Last administered on 07/17/18 14:52; Admin Dose 50 MG; Start 07/05/18 at 22:00 Citric Acid/ Sodium Citrate (Bicitra) 60 ml Q8 PO Last administered on 07/17/18 14:51; Admin Dose 60 ML; Start 07/09/18 at 14:00 Amikacin Sulfate (Amikacin Iv Per Pharmacy) 1 ea NOTE XX ; Start 07/09/18 at 17:30 Vancomycin HCl (Vancomycin Oral Syringe) 125 mg Q6 GTB Last administered on 07/17/18 12:27; Admin Dose 125 MG; Start 07/09/18 at 18:00 Epoetin Zen-epbx (Retacrit (Non-Esrd)) 10,000 unit MoWeFr@1700 SC Last administered on 07/15/18 17:54; Admin Dose 10,000 UNIT; Start 07/13/18 at 17:00 Amikacin Sulfate 300 mg/Sodium Chloride 101.2 ml @ 101.4 mls/ hr Q48H IVPB Last administered on 07/16/18 23:00; Admin Dose 101.4 MLS/HR; Start 07/14/18 at 23:00 Cefepime HCl 50 ml @ 100 mls/hr Q24H IVPB Last administered on 07/16/18 17:55; Admin Dose 100 MLS/HR; Start 07/14/18 at 18:30 Vancomycin HCl (Vanco Iv Per Pharmacy) VANCOMYCIN PER PHARMACY PER PROTOCOL XX ; Start 07/15/18 at 13:30 Vancomycin HCl 1.5 gm/Sodium Chloride 250 ml @ 83.333 mls/ hr Q48H IVPB ; Start 07/17/18 at 17:00 CELESTINE MURPHY M.D. July 17, 2018 17:27
[2018-07-17] MEDS: CEFEPIME 2GM/50 ML (PMX) 50 ML IVPB SCH (17:33)
[2018-07-17] MEDS: EPOETIN ALFA-EPBX (NON-ESRD 10,000 UNIT/ML VIAL SC SCH (17:38)
[2018-07-17] MEDS: BALSAM PERU/CASTOR OIL 60 GM TUBE TOP SCH (22:13)
[2018-07-18] VITALS (22 sets, daily range): BP systolic 123–154; BP diastolic 56–79; PULSE 62–67; RESP 18–27
[2018-07-18] MEDS: METOCLOPRAMIDE 10 MG INJ IV SCH ×2 (00:15→05:14)
[2018-07-18] MEDS: VANCOMYCIN HCL 250 MG/5ML POSYG GTB SCH ×5 (00:15→23:56)
[2018-07-18] MEDS: CITRIC ACID/NA CITRATE 30 ML CUP PO SCH ×3 (05:13→22:14)
[2018-07-18] MEDS: morphine LIQ (10 MG/5 ML) CUP PEG PRN (05:13)
[2018-07-18] MEDS: METOPROLOL 50 MG TAB GTB SCH ×3 (05:13→22:15)
[2018-07-18] MEDS: DICYCLOMINE 10 MG CAP PO SCH ×3 (05:14→22:15)
[2018-07-18] MEDS: AMIODARONE 200 MG TAB GTB SCH ×3 (05:14→22:15)
[2018-07-18] MEDS: CHOLESTYRAMINE (LIGHT) 4 GM PACKET GTB SCH ×4 (05:26→22:45)
[2018-07-18] MEDS: FAMOTIDINE 20 MG TAB PEG SCH (09:04)
[2018-07-18] MEDS: MULTIVITAMINS 30 ML CUP GTB SCH (09:04)
[2018-07-18] MEDS: COLLAGENASE 5 GM (UD JAR) TOP SCH (09:04)
[2018-07-18] MEDS: ZINC SULFATE 220 MG CAP GTB SCH (09:04)
[2018-07-18] MEDS: BALSAM PERU/CASTOR OIL 60 GM TUBE TOP SCH ×2 (09:05→22:13)
--- NOTE | 2018-07-18 09:38 | CONS ---
Assessment/Plan Assessment/Plan Assessment/Plan (Daily) 1. Anemia of chronic disease stool for occult blood have been negative 2. Esophagitis with esophageal ulceration LA class D 3. History of colon polyp 4. Vent dependent respiratory failure 5. Abdominal pain resolved 6. Pseudomonas bacteremia 7. Diarrhea under control 8. Ileus resolved Plan Continue with Pepcid and Bentyl for the pain DC Reglan Consultation Date/Type/Reason Admit Date/Time May 06, 2018 at 17:38 Initial Consult Date 05/10/18 Requesting Provider: ROLAND GIRON MD Date/Time of Note DATE: 07/18/18 TIME: 09:35 24 HR Interval Summary Free Text/Dictation No abdominal pain, no nausea no vomiting No evidence of aspiration Exam/Review of Systems Exam Vitals Vital Signs Date Temp Pulse Resp B/P (MAP) Pulse Ox O2 O2 Flow FiO2 Time Delivery Rate 07/18/18 97.6 62 27 140/64 98 Trach 07:07 (89) Collar 07/18/18 30 05:30 Intake and Output 07/17/18 07/17/18 07/18/18 1515:00 23:00 07:00 IntakeIntake Total 1380 ml OutputOutput Total 750 ml BalanceBalance 630 ml Constitutional: alert, oriented ENMT: intubated Respiratory: diminished breath sounds Cardiovascular: regular rate and rhythm, nl pulses Gastrointestinal: soft, nl liver, spleen, non-tender Neurological: SLEEVE BOTTOM FELLER II-XII intact, nl mental status, nl speech, nl strength Results Result Diagram: 07/17/18 0632 07/17/18 0632 Medications Medication Current Medications IV Flush (NS 10 ml) 10 ml PRN IV ; Start 05/06/18 at 20:30 Zinc Sulfate (Zinc Sulfate) 220 mg DAILY GTB Last administered on 07/18/18at 09:04; Admin Dose 220 MG; Start 05/07/18 at 09:00 Ondansetron HCl (Zofran Tab) 4 mg Q6H PRN GTB NAUSEA AND/OR VOMITING Last administered on 05/31/18at 16:47; Admin Dose 4 MG; Start 05/07/18 at 00:15 Multivitamins (Multivitamin) 30 ml DAILY GTB Last administered on 07/18/18at 09:04; Admin Dose 30 ML; Start 05/07/18 at 09:00 Miscellaneous Information (Pending Santyl Order For Wound Care) This patient goldman... PRN PRN XX WOUND CARE; Start 05/09/18 at 17:00 Famotidine (Pepcid) 20 mg DAILY PEG Last administered on 07/18/18 09:04; Admin Dose 20 MG; Start 05/23/18 at 09:00 Morphine Sulfate (morphine) 6 mg Q4H PRN PEG SEVERE PAIN LEVEL 7-10 Last administered on 07/18/18 05:13; Admin Dose 6 MG; Start 05/22/18 at 17:00 Acetaminophen (Tylenol Tab) 650 mg Q4H PRN PO MILD PAIN(1-3)OR ELEVATED TEMP Last administered on 07/16/18 00:42; Admin Dose 650 MG; Start 05/31/18 at 13:00 Metoclopramide HCl (Reglan) 5 mg Q6 IV Last administered on 07/18/18 05:14; Admin Dose 5 MG; Start 05/31/18 at 13:00 Collagenase (Santyl) 1 applic DAILY TOP Last administered on 07/18/18 09:04; Admin Dose 1 APPLIC; Start 06/01/18 at 09:00 Clonidine (Catapres) 0.1 mg Q6H PRN PO ELEVATED BLOOD PRESSURE Last administered on 07/09/18 09:08; Admin Dose 0.1 MG; Start 06/03/18 at 03:30 Bumetanide (Bumex) 1 mg BID DIURETICS GTB Last administered on 07/12/18 05:23; Admin Dose 1 MG; Start 06/11/18 at 18:00; Status Hold Miscellaneous Information 1 ea NOTE XX ; Start 06/26/18 at 08:00 Dicyclomine HCl (Bentyl) 20 mg Q8 PO Last administered on 07/18/18 05:14; Admin Dose 20 MG; Start 06/27/18 at 22:00 Cholestyramine Resin (Questran Light) 4 gm 0600,1200,1800,2300 GTB Last administered on 07/18/18 05:26; Admin Dose 4 GM; Start 06/27/18 at 18:00 Lorazepam (Ativan) 0.5 mg Q4 PRN IV ANXIETY Last administered on 07/13/18at 11:07; Admin Dose 0.5 MG; Start 07/01/18 at 14:00 Amiodarone HCl (Cordarone) 200 mg Q8 GTB Last administered on 07/18/18 05:14; Admin Dose 200 MG; Start 07/05/18 at 22:00 Metoprolol Tartrate (Lopressor) 50 mg Q8 GTB Last administered on 07/18/18 05:13; Admin Dose 50 MG; Start 07/05/18 at 22:00 Citric Acid/ Sodium Citrate (Bicitra) 60 ml Q8 PO Last administered on 07/18/18 05:13; Admin Dose 60 ML; Start 07/09/18 at 14:00 Amikacin Sulfate (Amikacin Iv Per Pharmacy) 1 ea NOTE XX ; Start 07/09/18 at 17:30 Vancomycin HCl (Vancomycin Oral Syringe) 125 mg Q6 GTB Last administered on 07/18/18 05:14; Admin Dose 125 MG; Start 07/09/18 at 18:00 Epoetin Zen-epbx (Retacrit (Non-Esrd)) 10,000 unit MoWeFr@1700 SC Last administered on 07/17/18at 17:38; Admin Dose 10,000 UNIT; Start 07/13/18 at 17:00 Amikacin Sulfate 300 mg/Sodium Chloride 101.2 ml @ 101.4 mls/ hr Q48H IVPB Last administered on 07/16/18 23:00; Admin Dose 101.4 MLS/HR; Start 07/14/18 at 23:00 Cefepime HCl 50 ml @ 100 mls/hr Q24H IVPB Last administered on 07/17/18 17:33; Admin Dose 100 MLS/HR; Start 07/14/18 at 18:30 Miscellaneous Information (*Rx Drug Level Order Reminder*) AMIKACIN TROUGH 1 @ 2,200 2200 ONCE XX ; Start 07/18/18 at 22:00; Stop 07/18/18 at 22:01 Miscellaneous Information (*Rx Drug Level Order Reminder*) AMIKACIN PEAK 6/2 @ 0,030 0030 ONCE XX ; Start 07/19/18 at 00:30; Stop 07/19/18 at 00:31 QUINTEN UMAÑA MD Jul 18, 2018 09:38
--- NOTE | 2018-07-18 10:31 | CONS ---
Assessment/Plan Assessment/Plan Assessment/Plan (Daily) Septic as well as hemorrhagic shock, improving Acute respiratory failure status post intubation and repeat tracheostomy Acute blood loss anemia History of respiratory failure status post decannulation Preserved ejection fraction echocardiogram 05/10/2018 Paroxysmal atrial fibrillation Acute kidney injury -Echocardiogram: There is an echodense structure on the mitral valve, differential includes calcification, vegetation. On review of previous records when patient was at [facility] in June 2017, when patient was in outside facility, patient was being treated for mitral valve endocarditis at that time. Given patient with recurrent positive blood cultures, as well as history of mitral valve endocarditis, would treat for endocarditis. This was discussed with infectious disease yesterday. -Blood pressure trend overall stable. Continue beta-tin as tolerated -Patient with paroxysmal atrial fibrillation, currently in sinus rhythm -Continue amiodarone as tolerated -Vent management as per pulmonary -Fluid management and electrolytes as per renal -Antibiotics as per infectious disease -No anticoagulation given recurrent anemia requiring blood transfusions Consultation Date/Type/Reason Admit Date/Time May 06, 2018 at 17:38 Initial Consult Date 05/10/18 Type of Consult Cardiology Requesting Provider: ROLAND GIRON MD Date/Time of Note DATE: 07/18/18 TIME: 10:30 24 HR Interval Summary Free Text/Dictation the aptient with no cahnge Exam/Review of Systems Vital Signs Vitals Vital Signs Date Temp Pulse Resp B/P (MAP) Pulse Ox O2 O2 Flow FiO2 Time Delivery Rate 07/18/18 97.6 62 27 140/64 98 Trach 07:07 (89) Collar 07/18/18 30 05:30 Intake and Output 07/17/18 07/17/18 07/18/18 1515:00 23:00 07:00 IntakeIntake Total 1380 ml OutputOutput Total 750 ml BalanceBalance 630 ml Labs Result Diagram: 07/17/18 0632 07/17/18 0632 Medications Medications Current Medications IV Flush (NS 10 ml) 10 ml PRN IV ; Start 05/06/18 at 20:30 Zinc Sulfate (Zinc Sulfate) 220 mg DAILY GTB Last administered on 07/18/18at 09:04; Admin Dose 220 MG; Start 05/07/18 at 09:00 Ondansetron HCl (Zofran Tab) 4 mg Q6H PRN GTB NAUSEA AND/OR VOMITING Last administered on 05/31/18 16:47; Admin Dose 4 MG; Start 05/07/18 at 00:15 Multivitamins (Multivitamin) 30 ml DAILY GTB Last administered on 07/18/18 09:04; Admin Dose 30 ML; Start 05/07/18 at 09:00 Miscellaneous Information (Pending Santyl Order For Wound Care) This patient goldman... PRN PRN XX WOUND CARE; Start 05/09/18 at 17:00 Famotidine (Pepcid) 20 mg DAILY PEG Last administered on 07/18/18 09:04; Admin Dose 20 MG; Start 05/23/18 at 09:00 Morphine Sulfate (morphine) 6 mg Q4H PRN PEG SEVERE PAIN LEVEL 7-10 Last administered on 07/18/18 05:13; Admin Dose 6 MG; Start 05/22/18 at 17:00 Acetaminophen (Tylenol Tab) 650 mg Q4H PRN PO MILD PAIN(1-3)OR ELEVATED TEMP Last administered on 07/16/18 00:42; Admin Dose 650 MG; Start 05/31/18 at 13:00 Collagenase (Santyl) 1 applic DAILY TOP Last administered on 07/18/18 09:04; Admin Dose 1 APPLIC; Start 06/01/18 at 09:00 Clonidine (Catapres) 0.1 mg Q6H PRN PO ELEVATED BLOOD PRESSURE Last administered on 07/09/18 09:08; Admin Dose 0.1 MG; Start 06/03/18 at 03:30 Bumetanide (Bumex) 1 mg BID DIURETICS GTB Last administered on 07/12/18 05:23; Admin Dose 1 MG; Start 06/11/18 at 18:00; Status Hold Miscellaneous Information 1 ea NOTE XX ; Start 06/26/18 at 08:00 Dicyclomine HCl (Bentyl) 20 mg Q8 PO Last administered on 07/18/18 05:14; Admin Dose 20 MG; Start 06/27/18 at 22:00 Cholestyramine Resin (Questran Light) 4 gm 0600,1200,1800,2300 GTB Last administered on 07/18/18 05:26; Admin Dose 4 GM; Start 06/27/18 at 18:00 Lorazepam (Ativan) 0.5 mg Q4 PRN IV ANXIETY Last administered on 07/13/18at 11:07; Admin Dose 0.5 MG; Start 07/01/18 at 14:00 Amiodarone HCl (Cordarone) 200 mg Q8 GTB Last administered on 07/18/18at 05:14; Admin Dose 200 MG; Start 07/05/18 at 22:00 Metoprolol Tartrate (Lopressor) 50 mg Q8 GTB Last administered on 07/18/18at 05:13; Admin Dose 50 MG; Start 07/05/18 at 22:00 Citric Acid/ Sodium Citrate (Bicitra) 60 ml Q8 PO Last administered on 07/18/18 05:13; Admin Dose 60 ML; Start 07/09/18 at 14:00 Amikacin Sulfate (Amikacin Iv Per Pharmacy) 1 ea NOTE XX ; Start 07/09/18 at 17:30 Vancomycin HCl (Vancomycin Oral Syringe) 125 mg Q6 GTB Last administered on 07/18/18at 05:14; Admin Dose 125 MG; Start 07/09/18 at 18:00 Epoetin Zen-epbx (Retacrit (Non-Esrd)) 10,000 unit MoWeFr@1700 SC Last administered on 07/17/18at 17:38; Admin Dose 10,000 UNIT; Start 07/13/18 at 17:00 Amikacin Sulfate 300 mg/Sodium Chloride 101.2 ml @ 101.4 mls/ hr Q48H IVPB Last administered on 07/16/18at 23:00; Admin Dose 101.4 MLS/HR; Start 07/14/18 at 23:00 Cefepime HCl 50 ml @ 100 mls/hr Q24H IVPB Last administered on 07/17/18at 17:33; Admin Dose 100 MLS/HR; Start 07/14/18 at 18:30 Miscellaneous Information (*Rx Drug Level Order Reminder*) AMIKACIN TROUGH 07/18 @ 2,200 2200 ONCE XX ; Start 07/18/18 at 22:00; Stop 07/18/18 at 22:01 Miscellaneous Information (*Rx Drug Level Order Reminder*) AMIKACIN PEAK 6/2 @ 0,030 0030 ONCE XX ; Start 07/19/18 at 00:30; Stop 07/19/18 at 00:31 CODY SO MD Jul 18, 2018 10:31
--- NOTE | 2018-07-18 11:44 | PN ---
Date/Time of Note Date/Time of Note DATE: 07/18/18 TIME: 11:43 Assessment/Plan VTE Prophylaxis Risk score (from Ns)>0 risk: 8 [place] [facility] [place] Pharmacological prophylaxis: LMWH Lines/Catheters IV Catheter Type (from [facility]): Peripheral IV Urinary Cath still in place: Yes Reason Cath still needed: skin wounds contaminated by urine Assessment/Plan Hospital Course -Persistent leukocytosis with Pseudomonas bacteremia, continue antibiotics per ID. Dr. Walton is following in infection disease consultation. -MDR Klebsiella urinary tract infection, completed treatment with amikacin. -Atrial fibrillation was rapid ventricular response, patient remains in sinus rhythm continue metoprolol and amiodarone. Dr. Scanlon is following in cardiology consultation. -S/p septic shock secondary to urinary tract infection, anterior neck soft tissue infection, and C. difficile colitis. -C-diff colitis,resolved. -Acute respiratory failure requiring intubation and ventilatory support. Dr. Lambert is following in pulmonology consultation. -S/p tracheostomy on 05/29/18. -Acute kidney injury on chronic kidney disease. Started on HD this admission with recovery of renal function. Dr. Mckeon is following in nephrology consultation. -Anemia of chronic inflammation, stool for OB is negative, status post blood transfusion. Continue Epogen. -Metabolic acidosis, resolved. -Acute diastolic congestive heart failure. -Paroxysmal atrial fibrillation -COPD -Dysphagia with PEG. -G-tube mild malfunction, changed by GI Dr. Carolina is following in gastroenterology consultation. -Obesity -Critical care myopathy Result Diagram: 07/17/18 0632 07/17/18 0632 Subjective 24 Hr Interval Summary Free Text/Dictation Eyes open, patient has no specific complaints Exam/Review of Systems Exam Vitals Vital Signs Date Temp Pulse Resp B/P (MAP) Pulse Ox O2 O2 Flow FiO2 Time Delivery Rate 07/18/18 98.1 66 21 123/56 97 Trach 11:40 (78) Collar 07/18/18 30 08:00 Intake and Output 07/17/18 07/17/18 07/18/18 1515:00 23:00 07:00 IntakeIntake Total 1380 ml OutputOutput Total 750 ml BalanceBalance 630 ml Constitutional: well developed Head: normocephalic, atraumatic Neck: supple Respiratory: diminished breath sounds Cardiovascular: regular rate and rhythm Gastrointestinal: soft, non-tender Extremities: normal pulses Medications Medication Current Medications IV Flush (NS 10 ml) 10 ml PRN IV ; Start 05/06/18 at 20:30 Zinc Sulfate (Zinc Sulfate) 220 mg DAILY GTB Last administered on 07/18/18 09:04; Admin Dose 220 MG; Start 05/07/18 at 09:00 Ondansetron HCl (Zofran Tab) 4 mg Q6H PRN GTB NAUSEA AND/OR VOMITING Last administered on 05/31/18at 16:47; Admin Dose 4 MG; Start 05/07/18 at 00:15 Multivitamins (Multivitamin) 30 ml DAILY GTB Last administered on 07/18/18 09:04; Admin Dose 30 ML; Start 05/07/18 at 09:00 Miscellaneous Information (Pending Santyl Order For Wound Care) This patient goldman... PRN PRN XX WOUND CARE; Start 05/09/18 at 17:00 Famotidine (Pepcid) 20 mg DAILY PEG Last administered on 07/18/18 09:04; Admin Dose 20 MG; Start 05/23/18 at 09:00 Morphine Sulfate (morphine) 6 mg Q4H PRN PEG SEVERE PAIN LEVEL 7-10 Last administered on 07/18/18 05:13; Admin Dose 6 MG; Start 05/22/18 at 17:00 Acetaminophen (Tylenol Tab) 650 mg Q4H PRN PO MILD PAIN(1-3)OR ELEVATED TEMP Last administered on 07/16/18 00:42; Admin Dose 650 MG; Start 05/31/18 at 13:00 Collagenase (Santyl) 1 applic DAILY TOP Last administered on 07/18/18 09:04; Admin Dose 1 APPLIC; Start 06/01/18 at 09:00 Clonidine (Catapres) 0.1 mg Q6H PRN PO ELEVATED BLOOD PRESSURE Last administered on 07/09/18 09:08; Admin Dose 0.1 MG; Start 06/03/18 at 03:30 Bumetanide (Bumex) 1 mg BID DIURETICS GTB Last administered on 07/12/18 05:23; Admin Dose 1 MG; Start 06/11/18 at 18:00; Status Hold Miscellaneous Information 1 ea NOTE XX ; Start 06/26/18 at 08:00 Dicyclomine HCl (Bentyl) 20 mg Q8 PO Last administered on 07/18/18 05:14; Admin Dose 20 MG; Start 06/27/18 at 22:00 Cholestyramine Resin (Questran Light) 4 gm 0600,1200,1800,2300 GTB Last administered on 07/18/18 05:26; Admin Dose 4 GM; Start 06/27/18 at 18:00 Lorazepam (Ativan) 0.5 mg Q4 PRN IV ANXIETY Last administered on 07/13/18 11:07; Admin Dose 0.5 MG; Start 07/01/18 at 14:00 Amiodarone HCl (Cordarone) 200 mg Q8 GTB Last administered on 07/18/18 05:14; Admin Dose 200 MG; Start 07/05/18 at 22:00 Metoprolol Tartrate (Lopressor) 50 mg Q8 GTB Last administered on 07/18/18 05:13; Admin Dose 50 MG; Start 07/05/18 at 22:00 Citric Acid/ Sodium Citrate (Bicitra) 60 ml Q8 PO Last administered on 07/18/18 05:13; Admin Dose 60 ML; Start 07/09/18 at 14:00 Amikacin Sulfate (Amikacin Iv Per Pharmacy) 1 ea NOTE XX ; Start 07/09/18 at 17 :30 Vancomycin HCl (Vancomycin Oral Syringe) 125 mg Q6 GTB Last administered on 07/18/18 05:14; Admin Dose 125 MG; Start 07/09/18 at 18:00 Epoetin Zen-epbx (Retacrit (Non-Esrd)) 10,000 unit MoWeFr@1700 SC Last administered on 07/17/18 17:38; Admin Dose 10,000 UNIT; Start 07/13/18 at 17:00 Amikacin Sulfate 300 mg/Sodium Chloride 101.2 ml @ 101.4 mls/ hr Q48H IVPB Last administered on 07/16/18 23:00; Admin Dose 101.4 MLS/HR; Start 07/14/18 at 23:00 Cefepime HCl 50 ml @ 100 mls/hr Q24H IVPB Last administered on 07/17/18 17:33; Admin Dose 100 MLS/HR; Start 07/14/18 at 18:30 Miscellaneous Information (*Rx Drug Level Order Reminder*) AMIKACIN TROUGH 07/18 @ 2,200 2200 ONCE XX ; Start 07/18/18 at 22:00; Stop 07/18/18 at 22:01 Miscellaneous Information (*Rx Drug Level Order Reminder*) AMIKACIN PEAK 07/19 @ 0,030 0030 ONCE XX ; Start 07/19/18 at 00:30; Stop 07/19/18 at 00:31 STEPHANIE BAL Jul 18, 2018 11:44
--- NOTE | 2018-07-18 12:08 | CONS ---
Assessment/Plan Assessment/Plan Hospital Course (Demo Recall) 1. Nonoliguric acute kidney injury with previous baseline creatinine of 2.0 mg/dL. Etiology of acute kidney injury was initially secondary to acute tubular necrosis. The patient was on hemodialysis for approximately 2 weeks. The patient showed adequate renal recovery and Juan catheter was removed. The patient, however, had a recurrent acute kidney injury due to underlying sepsis with relatively stable renal function today. At this point, continue current treatment plans, supportive care, renally dose all medications, no immediate need for renal replacement therapy. 2. Hypernatremia, improved. Continue free water flushes. 3. Hypokalemia. Continue to monitor and replete as needed. 4. Hypomagnesemia. We will continue to monitor and replete as needed. 5. Metabolic acidosis, improved. Continue Bicitra. 6. Volume overload. Continue intermittent diuretic therapy as needed. 7. Anemia. Continue to monitor hemoglobin and hematocrit levels. Continue Epogen. 8. Ventilator-dependent respiratory failure. Vent settings have been reviewed. Continue to monitor. Follow up with pulmonary. 9. Sepsis. Continue current antibiotic regimen. Cultures were reviewed. Follow up with infectious disease. 10. Dysphagia. Continue tube feeding. 11. Lower extremity wounds. Continue wound care. Consultation Date/Type/Reason Admit Date/Time May 06, 2018 at 17:38 Initial Consult Date 05/10/18 Requesting Provider: ROLAND GIRON MD Date/Time of Note DATE: 07/18/18 TIME: 12:06 24 HR Interval Summary Free Text/Dictation tolerating tube feeds Bp stable adequate urine output d/w rn gen nad cv rrr pulm coarse bs abd soft nd nt +bs ext: no edema Exam/Review of Systems Exam Vitals Vital Signs Date Temp Pulse Resp B/P (MAP) Pulse Ox O2 O2 Flow FiO2 Time Delivery Rate 07/18/18 98.1 66 21 123/56 97 Trach 11:40 (78) Collar 07/18/18 30 08:00 Intake and Output 07/17/18 07/17/18 07/18/18 1515:00 23:00 07:00 IntakeIntake Total 1380 ml OutputOutput Total 750 ml BalanceBalance 630 ml Results Result Diagram: 07/17/18 0632 07/17/18 0632 Medications Medication Current Medications IV Flush (NS 10 ml) 10 ml PRN IV ; Start 05/06/18 at 20:30 Zinc Sulfate (Zinc Sulfate) 220 mg DAILY GTB Last administered on 07/18/18 09:04; Admin Dose 220 MG; Start 05/07/18 at 09:00 Ondansetron HCl (Zofran Tab) 4 mg Q6H PRN GTB NAUSEA AND/OR VOMITING Last administered on 05/31/18 16:47; Admin Dose 4 MG; Start 05/07/18 at 00:15 Multivitamins (Multivitamin) 30 ml DAILY GTB Last administered on 07/18/18 09:04; Admin Dose 30 ML; Start 05/07/18 at 09:00 Miscellaneous Information (Pending Santyl Order For Wound Care) This patient goldman... PRN PRN XX WOUND CARE; Start 05/09/18 at 17:00 Famotidine (Pepcid) 20 mg DAILY PEG Last administered on 07/18/18 09:04; Admin Dose 20 MG; Start 05/23/18 at 09:00 Morphine Sulfate (morphine) 6 mg Q4H PRN PEG SEVERE PAIN LEVEL 7-10 Last administered on 07/18/18 05:13; Admin Dose 6 MG; Start 05/22/18 at 17:00 Acetaminophen (Tylenol Tab) 650 mg Q4H PRN PO MILD PAIN(1-3)OR ELEVATED TEMP Last administered on 07/16/18 00:42; Admin Dose 650 MG; Start 05/31/18 at 13:00 Collagenase (Santyl) 1 applic DAILY TOP Last administered on 07/18/18 09:04; Admin Dose 1 APPLIC; Start 06/01/18 at 09:00 Clonidine (Catapres) 0.1 mg Q6H PRN PO ELEVATED BLOOD PRESSURE Last administered on 07/09/18 09:08; Admin Dose 0.1 MG; Start 06/03/18 at 03:30 Bumetanide (Bumex) 1 mg BID DIURETICS GTB Last administered on 07/12/18 05:23; Admin Dose 1 MG; Start 06/11/18 at 18:00; Status Hold Miscellaneous Information 1 ea NOTE XX ; Start 06/26/18 at 08:00 Dicyclomine HCl (Bentyl) 20 mg Q8 PO Last administered on 07/18/18 05:14; Admin Dose 20 MG; Start 06/27/18 at 22:00 Cholestyramine Resin (Questran Light) 4 gm 0600,1200,1800,2300 GTB Last administered on 07/18/18 05:26; Admin Dose 4 GM; Start 06/27/18 at 18:00 Lorazepam (Ativan) 0.5 mg Q4 PRN IV ANXIETY Last administered on 07/13/18 11:07; Admin Dose 0.5 MG; Start 07/01/18 at 14:00 Amiodarone HCl (Cordarone) 200 mg Q8 GTB Last administered on 07/18/18 05:14; Admin Dose 200 MG; Start 07/05/18 at 22:00 Metoprolol Tartrate (Lopressor) 50 mg Q8 GTB Last administered on 07/18/18 05:13; Admin Dose 50 MG; Start 07/05/18 at 22:00 Citric Acid/ Sodium Citrate (Bicitra) 60 ml Q8 PO Last administered on 07/18/18 05:13; Admin Dose 60 ML; Start 07/09/18 at 14:00 Amikacin Sulfate (Amikacin Iv Per Pharmacy) 1 ea NOTE XX ; Start 07/09/18 at 17:30 Vancomycin HCl (Vancomycin Oral Syringe) 125 mg Q6 GTB Last administered on 07/18/18 05:14; Admin Dose 125 MG; Start 07/09/18 at 18:00 Epoetin Zen-epbx (Retacrit (Non-Esrd)) 10,000 unit MoWeFr@1700 SC Last administered on 07/17/18 17:38; Admin Dose 10,000 UNIT; Start 07/13/18 at 17:00 Amikacin Sulfate 300 mg/Sodium Chloride 101.2 ml @ 101.4 mls/ hr Q48H IVPB Last administered on 07/16/18 23:00; Admin Dose 101.4 MLS/HR; Start 07/14/18 at 23:00 Cefepime HCl 50 ml @ 100 mls/hr Q24H IVPB Last administered on 07/17/18 17:33; Admin Dose 100 MLS/HR; Start 07/14/18 at 18:30 Miscellaneous Information (*Rx Drug Level Order Reminder*) AMIKACIN TROUGH 6/1 @ 2,200 2200 ONCE XX ; Start 07/18/18 at 22:00; Stop 07/18/18 at 22:01 Miscellaneous Information (*Rx Drug Level Order Reminder*) AMIKACIN PEAK 07/19 @ 0,030 0030 ONCE XX ; Start 07/19/18 at 00:30; Stop 07/19/18 at 00:31 ALIZE FLORES MD Jul 18, 2018 12:08
[2018-07-18] MEDS: CEFEPIME 2GM/50 ML (PMX) 50 ML IVPB SCH (18:32)
[2018-07-18] MEDS: AMIKACIN 300 MG in SOD CHLORIDE 0.9% 100 ML IVPB SCH (22:47)
--- NOTE | 2018-07-18 23:32 | CONS ---
Assessment/Plan Assessment/Plan Hospital Course (Demo Recall) # sepsis, leukocytosis, SIRS, pulmonary, cardiac - recurrent leukocytosis due to bacteremia (below) - s/p septic shock due to pneumonia and C diff colitis - acute on chronic hypoxic respiratory failure, persistent - s/p reintubation 05/12/2018 - s/p re-do trach on 05/29/2018 - recurrent colonization of the anterior neck wound with ESBL+kleb, MRSA, GBS, corynebacteria on 05/06/2018, s/p meropenem - h/o pneumonia vs. colonization of the airway by pseudomonas and ESBL+klebsiella - h/o possible, recurrent HCAP due to pseudomonas and ESBL+klebsiella - h/o recurrent HCAP due to MRSA and Enterobacter (culture of tracheal aspirate on 07/16/2017 that was collected at [facility]) . Pt took vancomycin and ceftazidime - h/o decannulation prior to admission - h/o tracheostomy on 06/11/2017 - h/o SIRS from UGIB in 2018 - h/o thoracentesis on 07/18/2017, transudative (protein <2, LDH 279) - h/o bleeding from the trach site in 2018 - h/o septic shock due to pneumonia, ARDS, bacteremia, fungemia in 2018 - h/o ARDS in 2018 - h/o smoking - COPD - h/o ILD per medical record - h/o PAF, improved # GI - possible ileus or enterocolitis on CT abd/pel 06/15/2018-->follow up CT on 07/15/2018 showed no evidence of urolithiasis, obstructive uropathy or diverticulitis; it showed small to moderate ascites - C diff colitis, diagnosed on 05/11/2018. Pt's on pGT vancomycin induction followed by taper (05/11/2018-); Pt previously took IV metronidazole (05/11/2018- 05/29/2018; restart 05/30/2018-06/05/18) too - h/o intermittent diarrhea, Pt had multiple negative C. diff tests at [facility] at OSH in the past; none was positive until 05/11/2018 - dysphagia - h/o PEG placement 06/13/2018 - protein calorie malnutrition - h/o coffee ground emesis/UGIB on 12/23/2017 due to deep ulceration of distal esophagus and gastritis on EGD 12/26/2017. No e/o H. pylori - h/o possible appendicitis on CT on 11/22/2017, Pt took ertapenem (11/24/2017- 12/01/2017) - h/o extensive adhesions lower abdominal and pelvis between small bowel to each other and to colon and to abdominal wall, anterior pelvic wall chronic abscess secondary to probably an old perforated diverticulitis, torsion of small bowel around these dense adhesion causing multiple obstructive points - h/o laparoscopic exploration and extensive lysis of adhesions and drainage of anterior pelvic wall abscess 09/16/2017. Cultures were negative, no e/o malignancy. Pt took pip/tazo (09/16/2017-09/26/2017) - h/o EGD and exchange of PEG on 09/01/2017 - h/o partial obstruction mid jejunum in L anterior central pelvis with suggestion of a 3 cm soft tissue mass on CT 08/28/2017 - h/o internal stomal deep ulcer behind the internal bumper, gastritis and esophagitis, Rodriguez's cannot be ruled out, per EGD with biopsy 07/23/2017 - h/o GIB s/p flex sig showed polyp; stool OB negative on 06/29/17 - h/o stool OB positive status - h/o SBO and ileus due to pain meds - h/o mildly elevated CEA # renal/ - recurrent UTI due to pseudomonas (culture on 07/09/2018)-->Garza catheter was replaced on 07/14/2018 - s/p UTI due to MDR, CRE-klebsiella on 06/15/2018. S/p renally dosed amikacin for klebsiella in her urine culture (06/17-06/22/2018) - s/p UTI due to pseudomonas and ESBL+klebsiella on 06/09/2018, Pt took one dose of fosfomycin on 06/10/2018 and cipro 06/12-06/15/2018 - anasarca - started on HD on 05/15/2018, via Juan in R groin - recurrent NATHAN on CKD - 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 Her strain of CRE was sensitive to colistin, Avycaz, and Vabomere but resistant to Zerbaxa (reported on 05/19/2018) - metabolic acidosis - adrenal insufficiency - h/o vaginal bleed in 2018 - h/o colonization of urinary tract by ESBL+klebsiella, VRE - h/o recurrent, symptomatic UTI due to carbapenem-resistant kleb (MDR strain) per urine culture 10/04/17, 10/09/17, 10/21/2017, P took colistin (10/09/2017- 10/15/2017), fosfomycin for carbapenemase-producing klebsiella and VRE on 10/25/2017 and 10/28/2017 - h/o funguria - h/o urinary retention # bloodstream infections - Bacteremia d/t pseudomonas aeruginosa 07/09/18, 07/10/18, 07/11/18, 07/12/18 and 07/13/18. Associated with PICC because the blood culture from PICC and phlebotomy on 07/13/2018 both grew the same bacteria. The tip of PICC that was removed also grew the same bacteria in culture 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 improved. Probable manifestation of endocarditis. Pt declined MRI on 08/06/2017 - h/o infection of R toes due to pseudomonas. coagulase negative Staph likely a colonizer - h/o intertrigo of the groin, resolved with nystatin powder - h/o scabies, locally crusted lesion over L scapula, s/p permethrin cream and pGT ivermectin on 08/11/2017, 08/12/2017, 08/19/2017. Repeat skin scraping on 08/21/2017 was negative for scabies # psych, neuro - decreased hearing b/l - s/p acute toxic metabolic encephalopathy - h/o critical illness polyneuropathy - anxiety/depression, bipolar d/o, seen by Psychiatry in the past - chronic pain syndrome - h/o medical non-compliance: she would refuse her medications, treatment and straight catheterization in 2018 # hematological, vascular - chronic anemia requiring blood transfusion intermittently - macrocytic anemia - aneurysmal dilatation of the distal aorta visualized on CT 06/15/2018 - PVD recommendations: - ordered: repeat blood cultures daily until blood cultures clear - please do transthoracic echo when Pt is agreeable to r/o endocarditis - continue amikacin IV (07/09/2018-). Pt had a strain of pseudomonas that was resistant to all except for aminoglycoside - continue renally dosed cefepime (07/14/2018-); Pt needs double coverage because amikacin alone has not cleared bacteremia. Some strains of pseudomonas he had were pansensitive while other strains of pseudomonas were resistant to many antibiotics - continue vanco pGT (07/09/18/ - ) because Pt has h/o severe C diff colitis. S/p IV metronidazole (07/09/18-07/15/18) Management d/w patient Consultation Date/Type/Reason Admit Date/Time May 06, 2018 at 17:38 Initial Consult Date 05/10/18 Type of Consult ID Requesting Provider: ROLAND GIRON MD Date/Time of Note DATE: 07/18/18 TIME: 23:28 24 HR Interval Summary Subjective hx not possible: other (nearly non-verbal) Constitutional: no complaints Detailed Summary Respiratory: shortness of breath (sometimes) Gastrointestinal: pain (difuse) Musculoskeletal: restricted range of motion Skin: no complaints Neurologic: other (functional paraplegia) Psychological: other (lethargic) Exam/Review of Systems Exam Vitals Vital Signs Date Temp Pulse Resp B/P (MAP) Pulse Ox O2 O2 Flow FiO2 Time Delivery Rate 07/18/18 98.5 64 18 143/79 97 20:00 (100) 07/18/18 30 16:50 07/18/18 Trach 15:43 Collar Intake and Output 07/17/18 07/17/18 07/18/18 1515:00 23:00 07:00 IntakeIntake Total 1380 ml OutputOutput Total 750 ml BalanceBalance 630 ml Constitutional: frail, obese Psych: confusion Head: normocephalic, atraumatic Eyes: nl conjunctiva, nl lids ENMT: nl external ears & nose, nl nasal mucosa & septum Neck: other (trach) Respiratory: clear to auscultation Cardiovascular: regular rate and rhythm, nl pulses Gastrointestinal: soft, non-tender, other (PEG) Musculoskeletal: No swelling Extremities: No edema Neurological: lethargic Skin: nl turgor Results Result Diagram: 07/17/1863107/17/18 06 Medications Medication Current Medications IV Flush (NS 10 ml) 10 ml PRN IV ; Start 05/06/18 at 20:30 Zinc Sulfate (Zinc Sulfate) 220 mg DAILY GTB Last administered on 07/18/18at 09:04; Admin Dose 220 MG; Start 05/07/18 at 09:00 Ondansetron HCl (Zofran Tab) 4 mg Q6H PRN GTB NAUSEA AND/OR VOMITING Last administered on 05/31/18at 16:47; Admin Dose 4 MG; Start 05/07/18 at 00:15 Multivitamins (Multivitamin) 30 ml DAILY GTB Last administered on 07/18/18at 09:04; Admin Dose 30 ML; Start 05/07/18 at 09:00 Miscellaneous Information (Pending Santyl Order For Wound Care) This patient goldman... PRN PRN XX WOUND CARE; Start 05/09/18 at 17:00 Famotidine (Pepcid) 20 mg DAILY PEG Last administered on 07/18/18at 09:04; Admin Dose 20 MG; Start 05/23/18 at 09:00 Morphine Sulfate (morphine) 6 mg Q4H PRN PEG SEVERE PAIN LEVEL 7-10 Last administered on 07/18/18at 05:13; Admin Dose 6 MG; Start 05/22/18 at 17:00 Acetaminophen (Tylenol Tab) 650 mg Q4H PRN PO MILD PAIN(1-3)OR ELEVATED TEMP Last administered on 07/16/18at 00:42; Admin Dose 650 MG; Start 05/31/18 at 13:00 Collagenase (Santyl) 1 applic DAILY TOP Last administered on 07/18/18 09:04; Admin Dose 1 APPLIC; Start 06/01/18 at 09:00 Clonidine (Catapres) 0.1 mg Q6H PRN PO ELEVATED BLOOD PRESSURE Last admini stered on 07/09/18 09:08; Admin Dose 0.1 MG; Start 06/03/18 at 03:30 Bumetanide (Bumex) 1 mg BID DIURETICS GTB Last administered on 07/12/18 05:23; Admin Dose 1 MG; Start 06/11/18 at 18:00; Status Hold Miscellaneous Information 1 ea NOTE XX ; Start 06/26/18 at 08:00 Dicyclomine HCl (Bentyl) 20 mg Q8 PO Last administered on 07/18/18 22:15; Admin Dose 20 MG; Start 06/27/18 at 22:00 Cholestyramine Resin (Questran Light) 4 gm 0600,1200,1800,2300 GTB Last administered on 07/18/18 22:45; Admin Dose 4 GM; Start 06/27/18 at 18:00 Lorazepam (Ativan) 0.5 mg Q4 PRN IV ANXIETY Last administered on 07/13/18 11:07; Admin Dose 0.5 MG; Start 07/01/18 at 14:00 Amiodarone HCl (Cordarone) 200 mg Q8 GTB Last administered on 07/18/18 22:15; Admin Dose 200 MG; Start 07/05/18 at 22:00 Metoprolol Tartrate (Lopressor) 50 mg Q8 GTB Last administered on 07/18/18 22:15; Admin Dose 50 MG; Start 07/05/18 at 22:00 Citric Acid/ Sodium Citrate (Bicitra) 60 ml Q8 PO Last administered on 07/18/18 22:14; Admin Dose 60 ML; Start 07/09/18 at 14:00 Amikacin Sulfate (Amikacin Iv Per Pharmacy) 1 ea NOTE XX ; Start 07/09/18 at 17:30 Vancomycin HCl (Vancomycin Oral Syringe) 125 mg Q6 GTB Last administered on 18:32; Admin Dose 125 MG; Start 07/09/18 at 18:00 Epoetin Zen-epbx (Retacrit (Non-Esrd)) 10,000 unit MoWeFr@1700 SC Last administered on 07/17/18at 17:38; Admin Dose 10,000 UNIT; Start 07/13/18 at 17:00 Amikacin Sulfate 300 mg/Sodium Chloride 101.2 ml @ 101.4 mls/ hr Q48H IVPB Last administered on 07/18/18at 22:47; Admin Dose 101.4 MLS/HR; Start 07/14/18 at 23:00 Cefepime HCl 50 ml @ 100 mls/hr Q24H IVPB Last administered on 07/18/18at 18:32; Admin Dose 100 MLS/HR; Start 07/14/18 at 18:30 Miscellaneous Information (*Rx Drug Level Order Reminder*) AMIKACIN PEAK 07/19 @ 0,030 0030 ONCE XX ; Start 07/19/18 at 00:30; Stop 07/19/18 at 00:31 CELESTINE MURPHY M.D. Jul 18, 2018 23:32
[2018-07-19] VITALS (24 sets, daily range): BP systolic 112–159; BP diastolic 53–88; PULSE 60–68; RESP 19–25
[2018-07-19] MEDS: VANCOMYCIN HCL 250 MG/5ML POSYG GTB SCH ×4 (05:30→23:39)
[2018-07-19] MEDS: CITRIC ACID/NA CITRATE 30 ML CUP PO SCH ×3 (05:30→21:45)
[2018-07-19] MEDS: CHOLESTYRAMINE (LIGHT) 4 GM PACKET GTB SCH ×4 (05:30→21:46)
[2018-07-19] MEDS: AMIODARONE 200 MG TAB GTB SCH ×3 (05:31→21:46)
[2018-07-19] MEDS: DICYCLOMINE 10 MG CAP PO SCH ×3 (05:31→21:45)
[2018-07-19] MEDS: METOPROLOL 50 MG TAB GTB SCH ×3 (05:31→21:46)
[2018-07-19] MEDS: ZINC SULFATE 220 MG CAP GTB SCH (09:07)
[2018-07-19] MEDS: FAMOTIDINE 20 MG TAB PEG SCH (09:07)
[2018-07-19] MEDS: MULTIVITAMINS 30 ML CUP GTB SCH (09:07)
[2018-07-19] MEDS: BALSAM PERU/CASTOR OIL 60 GM TUBE TOP SCH ×2 (09:08→21:45)
[2018-07-19] MEDS: COLLAGENASE 5 GM (UD JAR) TOP SCH (09:08)
--- NOTE | 2018-07-19 11:00 | PN ---
Date/Time of Note Date/Time of Note DATE: 07/19/18 TIME: 11:00 Assessment/Plan VTE Prophylaxis Risk score (from Ns)>0 risk: 9 [place] [facility] [place] Pharmacological prophylaxis: LMWH Lines/Catheters IV Catheter Type (from [facility]): Peripheral IV Urinary Cath still in place: Yes Reason Cath still needed: skin wounds contaminated by urine Assessment/Plan Hospital Course -Persistent leukocytosis with Pseudomonas bacteremia, continue antibiotics per ID. Dr. Walton is following in infection disease consultation. -MDR Klebsiella urinary tract infection, completed treatment with amikacin. -Atrial fibrillation was rapid ventricular response, patient remains in sinus rhythm continue metoprolol and amiodarone. Dr. Scanlon is following in cardiology consultation. -S/p septic shock secondary to urinary tract infection, anterior neck soft tissue infection, and C. difficile colitis. -C-diff colitis,resolved. -Acute respiratory failure requiring intubation and ventilatory support. Dr. Lambert is following in pulmonology consultation. -S/p tracheostomy on 05/29/18. -Acute kidney injury on chronic kidney disease. Started on HD this admission with recovery of renal function. Dr. Mckeon is following in nephrology consultation. -Anemia of chronic inflammation, stool for OB is negative, status post blood transfusion. Continue Epogen. -Metabolic acidosis, resolved. -Acute diastolic congestive heart failure. -Paroxysmal atrial fibrillation -COPD -Dysphagia with PEG. -G-tube mild malfunction, changed by GI Dr. Carolina is following in gastroenterology consultation. -Obesity -Critical care myopathy Result Diagram: 07/17/18 0632 07/17/18 0632 Subjective 24 Hr Interval Summary Free Text/Dictation Patient sedated, on vent Exam/Review of Systems Exam Vitals Vital Signs Date Temp Pulse Resp B/P (MAP) Pulse Ox O2 O2 Flow FiO2 Time Delivery Rate 07/19/18 98.8 64 20 145/66 98 Mechanical 08:27 (92) Ventilator Trach Collar 07/19/18 30 05:55 Intake and Output 07/18/18 07/18/18 07/19/18 1515:00 23:00 07:00 IntakeIntake Total 1380 ml 500 ml 1340 ml OutputOutput Total 750 ml 1000 ml 1000 ml BalanceBalance 630 ml -500 ml 340 ml Constitutional: well developed Head: normocephalic, atraumatic Neck: supple Respiratory: diminished breath sounds Cardiovascular: regular rate and rhythm Gastrointestinal: soft, non-tender Extremities: normal pulses Medications Medication Current Medications IV Flush (NS 10 ml) 10 ml PRN IV ; Start 05/06/18 at 20:30 Zinc Sulfate (Zinc Sulfate) 220 mg DAILY GTB Last administered on 07/19/18 09:07; Admin Dose 220 MG; Start 05/07/18 at 09:00 Ondansetron HCl (Zofran Tab) 4 mg Q6H PRN GTB NAUSEA AND/OR VOMITING Last administered on 05/31/18 16:47; Admin Dose 4 MG; Start 05/07/18 at 00:15 Multivitamins (Multivitamin) 30 ml DAILY GTB Last administered on 07/19/18 09:07; Admin Dose 30 ML; Start 05/07/18 at 09:00 Miscellaneous Information (Pending Santyl Order For Wound Care) This patient goldman... PRN PRN XX WOUND CARE; Start 05/09/18 at 17:00 Famotidine (Pepcid) 20 mg DAILY PEG Last administered on 07/19/18 09:07; Admin Dose 20 MG; Start 05/23/18 at 09:00 Morphine Sulfate (morphine) 6 mg Q4H PRN PEG SEVERE PAIN LEVEL 7-10 Last administered on 07/18/18 05:13; Admin Dose 6 MG; Start 05/22/18 at 17:00 Acetaminophen (Tylenol Tab) 650 mg Q4H PRN PO MILD PAIN(1-3)OR ELEVATED TEMP Last administered on 07/16/18 00:42; Admin Dose 650 MG; Start 05/31/18 at 13:00 Collagenase (Santyl) 1 applic DAILY TOP Last administered on 07/19/18 09:08; Admin Dose 1 APPLIC; Start 06/01/18 at 09:00 Clonidine (Catapres) 0.1 mg Q6H PRN PO ELEVATED BLOOD PRESSURE Last administered on 07/09/18 09:08; Admin Dose 0.1 MG; Start 06/03/18 at 03:30 Bumetanide (Bumex) 1 mg BID DIURETICS GTB Last administered on 07/12/18 05:23; Admin Dose 1 MG; Start 06/11/18 at 18:00; Status Hold Miscellaneous Information 1 ea NOTE XX ; Start 06/26/18 at 08:00 Dicyclomine HCl (Bentyl) 20 mg Q8 PO Last administered on 07/19/18 05:31; Admin Dose 20 MG; Start 06/27/18 at 22:00 Cholestyramine Resin (Questran Light) 4 gm 0600,1200,1800,2300 GTB Last adminis tered on 07/19/18 05:30; Admin Dose 4 GM; Start 06/27/18 at 18:00 Lorazepam (Ativan) 0.5 mg Q4 PRN IV ANXIETY Last administered on 07/13/18 11:07; Admin Dose 0.5 MG; Start 07/01/18 at 14:00 Amiodarone HCl (Cordarone) 200 mg Q8 GTB Last administered on 07/19/18 05:31; Admin Dose 200 MG; Start 07/05/18 at 22:00 Metoprolol Tartrate (Lopressor) 50 mg Q8 GTB Last administered on 07/19/18 05:31; Admin Dose 50 MG; Start 07/05/18 at 22:00 Citric Acid/ Sodium Citrate (Bicitra) 60 ml Q8 PO Last administered on 07/19/18 05:30; Admin Dose 60 ML; Start 07/09/18 at 14:00 Amikacin Sulfate (Amikacin Iv Per Pharmacy) 1 ea NOTE XX ; Start 07/09/18 at 17:30 Vancomycin HCl (Vancomycin Oral Syringe) 125 mg Q6 GTB Last administered on 07/19/18 05:30; Admin Dose 125 MG; Start 07/09/18 at 18:00 Epoetin Zen-epbx (Retacrit (Non-Esrd)) 10,000 unit MoWeFr@1700 SC Last administered on 07/17/18 17:38; Admin Dose 10,000 UNIT; Start 07/13/18 at 17:00 Amikacin Sulfate 300 mg/Sodium Chloride 101.2 ml @ 101.4 mls/ hr Q48H IVPB Last administered on 07/18/18 22:47; Admin Dose 101.4 MLS/HR; Start 07/14/18 at 23:00 Cefepime HCl 50 ml @ 100 mls/hr Q24H IVPB Last administered on 07/18/18 18:32; Admin Dose 100 MLS/HR; Start 07/14/18 at 18:30 STEPHANIE BAL Jul 19, 2018 11:00
--- NOTE | 2018-07-19 12:29 | CONS ---
Assessment/Plan Assessment/Plan Hospital Course (Demo Recall) 1. Nonoliguric acute kidney injury with previous baseline creatinine of 2.0 mg/dL. Etiology of acute kidney injury was initially secondary to acute tubular necrosis. The patient was on hemodialysis for approximately 2 weeks. The patient showed adequate renal recovery and Juan catheter was removed. The patient, however, had a recurrent acute kidney injury due to underlying sepsis. repeat labs tomorrow. At this point, continue current treatment plans, supportive care, renally dose all medications, no immediate need for renal replacement therapy. 2. Hypernatremia, improved. Continue free water flushes. 3. Hypokalemia. Continue to monitor and replete as needed. 4. Hypomagnesemia. We will continue to monitor and replete as needed. 5. Metabolic acidosis, improved. Continue Bicitra. 6. Volume overload. Continue intermittent diuretic therapy as needed. 7. Anemia. Continue to monitor hemoglobin and hematocrit levels. Continue Epogen. 8. Ventilator-dependent respiratory failure. Vent settings have been reviewed. Continue to monitor. Follow up with pulmonary. 9. Sepsis. Continue current antibiotic regimen. Cultures were reviewed. Follow up with infectious disease. 10. Dysphagia. Continue tube feeding. 11. Lower extremity wounds. Continue wound care. Consultation Date/Type/Reason Admit Date/Time May 06, 2018 at 17:38 Initial Consult Date 05/10/18 Requesting Provider: ROLAND GIRON MD Date/Time of Note DATE: 07/19/18 TIME: 12:28 24 HR Interval Summary Free Text/Dictation adequate urine output no fever or emesis d/w rn gen nad cv rrr pulm ctab abd soft, nd, nt +bs ext: no edema Exam/Review of Systems Exam Vitals Vital Signs Date Temp Pulse Resp B/P (MAP) Pulse Ox O2 O2 Flow FiO2 Time Delivery Rate 07/19/18 98.7 65 20 123/53 98 Mechanical 11:01 (76) Ventilator Trach Collar 07/19/18 30 08:00 Intake and Output 07/18/18 07/18/18 07/19/18 1515:00 23:00 07:00 IntakeIntake Total 1380 ml 500 ml 1340 ml OutputOutput Total 750 ml 1000 ml 1000 ml BalanceBalance 630 ml -500 ml 340 ml Results Result Diagram: 07/17/18 0632 07/17/18 0632 Medications Medication Current Medications IV Flush (NS 10 ml) 10 ml PRN IV ; Start 05/06/18 at 20:30 Zinc Sulfate (Zinc Sulfate) 220 mg DAILY GTB Last administered on 07/19/18 09:07; Admin Dose 220 MG; Start 05/07/18 at 09:00 Ondansetron HCl (Zofran Tab) 4 mg Q6H PRN GTB NAUSEA AND/OR VOMITING Last administered on 05/31/18 16:47; Admin Dose 4 MG; Start 05/07/18 at 00:15 Multivitamins (Multivitamin) 30 ml DAILY GTB Last administered on 07/19/18 09:07; Admin Dose 30 ML; Start 05/07/18 at 09:00 Miscellaneous Information (Pending Santyl Order For Wound Care) This patient goldman... PRN PRN XX WOUND CARE; Start 05/09/18 at 17:00 Famotidine (Pepcid) 20 mg DAILY PEG Last administered on 07/19/18 09:07; Admin Dose 20 MG; Start 05/23/18 at 09:00 Morphine Sulfate (morphine) 6 mg Q4H PRN PEG SEVERE PAIN LEVEL 7-10 Last administered on 07/18/18 05:13; Admin Dose 6 MG; Start 05/22/18 at 17:00 Acetaminophen (Tylenol Tab) 650 mg Q4H PRN PO MILD PAIN(1-3)OR ELEVATED TEMP Last administered on 07/16/18 00:42; Admin Dose 650 MG; Start 05/31/18 at 13:00 Collagenase (Santyl) 1 applic DAILY TOP Last administered on 07/19/18 09:08; Admin Dose 1 APPLIC; Start 06/01/18 at 09:00 Clonidine (Catapres) 0.1 mg Q6H PRN PO ELEVATED BLOOD PRESSURE Last administered on 07/09/18 09:08; Admin Dose 0.1 MG; Start 06/03/18 at 03:30 Bumetanide (Bumex) 1 mg BID DIURETICS GTB Last administered on 07/12/18at 0 5:23; Admin Dose 1 MG; Start 06/11/18 at 18:00; Status Hold Miscellaneous Information 1 ea NOTE XX ; Start 06/26/18 at 08:00 Dicyclomine HCl (Bentyl) 20 mg Q8 PO Last administered on 07/19/18 05:31; Admin Dose 20 MG; Start 06/27/18 at 22:00 Cholestyramine Resin (Questran Light) 4 gm 0600,1200,1800,2300 GTB Last administered on 07/19/18 05:30; Admin Dose 4 GM; Start 06/27/18 at 18:00 Lorazepam (Ativan) 0.5 mg Q4 PRN IV ANXIETY Last administered on 07/13/18 11:07; Admin Dose 0.5 MG; Start 07/01/18 at 14:00 Amiodarone HCl (Cordarone) 200 mg Q8 GTB Last administered on 07/19/18 05:31; Admin Dose 200 MG; Start 07/05/18 at 22:00 Metoprolol Tartrate (Lopressor) 50 mg Q8 GTB Last administered on 07/19/18 05:31; Admin Dose 50 MG; Start 07/05/18 at 22:00 Citric Acid/ Sodium Citrate (Bicitra) 60 ml Q8 PO Last administered on 07/19/18 05:30; Admin Dose 60 ML; Start 07/09/18 at 14:00 Amikacin Sulfate (Amikacin Iv Per Pharmacy) 1 ea NOTE XX ; Start 07/09/18 at 17:30 Vancomycin HCl (Vancomycin Oral Syringe) 125 mg Q6 GTB Last administered on 07/19/18 05:30; Admin Dose 125 MG; Start 07/09/18 at 18:00 Epoetin Zen-epbx (Retacrit (Non-Esrd)) 10,000 unit MoWeFr@1700 SC Last administered on 07/17/18 17:38; Admin Dose 10,000 UNIT; Start 07/13/18 at 17:00 Amikacin Sulfate 300 mg/Sodium Chloride 101.2 ml @ 101.4 mls/ hr Q48H IVPB Last administered on 07/18/18 22:47; Admin Dose 101.4 MLS/HR; Start 07/14/18 at 23:00 Cefepime HCl 50 ml @ 100 mls/hr Q24H IVPB Last administered on 07/18/18 18:32; Admin Dose 100 MLS/HR; Start 07/14/18 at 18:30 ALIZE FLORES MD Jul 19, 2018 12:29
[2018-07-19] MEDS: CEFEPIME 2GM/50 ML (PMX) 50 ML IVPB SCH (18:56)
--- NOTE | 2018-07-19 23:33 | CONS ---
Assessment/Plan Assessment/Plan Hospital Course (Demo Recall) # sepsis, leukocytosis, SIRS, pulmonary, cardiac - recurrent leukocytosis due to bacteremia (below), improved - s/p septic shock due to pneumonia and C diff colitis - acute on chronic hypoxic respiratory failure, persistent - s/p reintubation 05/12/2018 - s/p re-do trach on 05/29/2018 - recurrent colonization of the anterior neck wound with ESBL+kleb, MRSA, GBS, corynebacteria on 05/06/2018 - h/o pneumonia vs. colonization of the airway by pseudomonas and ESBL+klebsiella - h/o possible, recurrent HCAP due to pseudomonas and ESBL+klebsiella - h/o recurrent HCAP due to MRSA and Enterobacter (culture of tracheal aspirate on 07/16/2017 that was collected at [facility]) . Pt took vancomycin and ceftazidime - h/o decannulation prior to admission - h/o tracheostomy on 06/11/2017 - h/o SIRS from UGIB in 2018 - h/o thoracentesis on 07/18/2017, transudative (protein <2, LDH 279) - h/o bleeding from the trach site in 2018 - h/o septic shock due to pneumonia, ARDS, bacteremia, fungemia in 2018 - h/o ARDS in 2018 - h/o smoking - COPD - h/o ILD per medical record - h/o PAF, improved # GI - s/p possible ileus or enterocolitis on CT abd/pel 06/15/2018-->follow up CT on 07/15/2018 showed no evidence of urolithiasis, obstructive uropathy or diverticulitis; it showed small to moderate ascites - C diff colitis, diagnosed on 05/11/2018. Pt is on pGT vancomycin (05/11/2018-); Pt previously took IV metronidazole (05/11/2018-05/29/2018; restart 05/30/2018- 06/05/18) too - Pt had multiple negative C. diff tests at [facility] and at [facility]SH in the past; none was positive until 05/11/2018 - dysphagia - h/o PEG placement 06/13/2018 - protein calorie malnutrition - h/o coffee ground emesis/UGIB on 12/23/2017 due to deep ulceration of distal esophagus and gastritis on EGD 12/26/2017. No e/o H. pylori - h/o possible appendicitis on CT on 11/22/2017, Pt took ertapenem (11/24/2017- 12/01/2017) - h/o extensive adhesions lower abdominal and pelvis between small bowel to each other and to colon and to abdominal wall, anterior pelvic wall chronic abscess secondary to probably an old perforated diverticulitis, torsion of small bowel around these dense adhesion causing multiple obstructive points - h/o laparoscopic exploration and extensive lysis of adhesions and drainage of anterior pelvic wall abscess 09/16/2017. Cultures were negative, no e/o malignancy. Pt took pip/tazo (09/16/2017-09/26/2017) - h/o EGD and exchange of PEG on 09/01/2017 - h/o partial obstruction mid jejunum in L anterior central pelvis with suggestion of a 3 cm soft tissue mass on CT 08/28/2017 - h/o internal stomal deep ulcer behind the internal bumper, gastritis and esophagitis, Rodriguez's cannot be ruled out, per EGD with biopsy 07/23/2017 - h/o GIB s/p flex sig showed polyp; stool OB negative on 06/29/17 - h/o stool OB positive status - h/o SBO and ileus due to pain meds - h/o mildly elevated CEA # renal/ - s/p recurrent UTI due to pseudomonas (culture on 07/09/2018)-->Garza catheter was replaced on 07/14/2018 - s/p UTI due to MDR, CRE-klebsiella on 06/15/2018. S/p renally dosed amikacin for klebsiella in her urine culture (06/17-06/22/2018) - s/p UTI due to pseudomonas and ESBL+klebsiella on 06/09/2018, Pt took one dose of fosfomycin on 06/10/2018 and cipro 06/12-06/15/2018 - anasarca - started on HD on 05/15/2018, via Juan in R groin - recurrent NATHAN on CKD - 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 Her strain of CRE was sensitive to colistin, Avycaz, and Vabomere but resistant to Zerbaxa (reported on 05/19/2018) - metabolic acidosis - adrenal insufficiency - h/o vaginal bleed in 2018 - h/o colonization of urinary tract by ESBL+klebsiella, VRE - h/o recurrent, symptomatic UTI due to carbapenem-resistant kleb (MDR strain) per urine culture 10/04/17, 10/09/17, 10/21/2017, P took colistin (10/09/2017- 10/15/2017), fosfomycin for carbapenemase-producing klebsiella and VRE on 10/25/2017 and 10/28/2017 - h/o funguria - h/o urinary retention # bloodstream infections - Bacteremia d/t pseudomonas aeruginosa 07/09/18, 07/10/18, 07/11/18, 07/12/18, 07/13/18, 07/15/18, 07/17/18. This is associated with PICC because the blood culture from PICC and phlebotomy on 07/13/2018 both grew the same bacteria. 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; Pt declined surgery for MVR per outside medical records; TTE 07/01/17 did not mentio n any thrombus; s/p voriconazole (05/25/2017-08/01/2017) - h/o bacteremia due to MSSA and proteus s/p ceftriaxone; repeat blood cultures were negative on 06/14/2017 # musculoskeletal and dermatological - dry skin - chronic wound of LLE - h/o infection of wound of LLE - h/o debridement of wound of LLE on 08/06/2017 - h/o recurrent herpes labialis, Pt took acyclovir, valacyclovir - h/o Osler's nodes (eschar) of R toes with erythematous skin; desquamation of the skin and open lacerations on R plantar foot. improved. Probable manifestation of endocarditis. Pt declined MRI on 08/06/2017 - h/o infection of R toes due to pseudomonas. coagulase negative Staph likely a colonizer - h/o intertrigo of the groin, resolved with nystatin powder - h/o scabies, locally crusted lesion over L scapula, s/p permethrin cream and pGT ivermectin on 08/11/2017, 08/12/2017, 08/19/2017. Repeat skin scraping on 08/21/2017 was negative for scabies # psych, neuro - chronic toxic metabolic encephalopathy, progressing - decreased hearing b/l - h/o critical illness polyneuropathy - anxiety/depression, bipolar d/o, seen by Psychiatry in the past - chronic pain syndrome - h/o medical non-compliance: she would refuse her medications, treatment and straight catheterization in 2018 # hematological, vascular - chronic anemia requiring blood transfusion intermittently - macrocytic anemia - aneurysmal dilatation of the distal aorta visualized on CT 06/15/2018 - PVD recommendations: - pending results: repeat blood cultures from 07/18/2018 (negative so far) - please do transthoracic echo when Pt is agreeable to r/o endocarditis - continue amikacin IV (07/09/2018-). Pt had a strain of pseudomonas that was resistant to all except for aminoglycoside - continue renally dosed cefepime (07/14/2018-); Pt needs double coverage because amikacin alone has not cleared her bacteremia. Some strains of pseudomonas she had were pansensitive while other strains of pseudomonas were resistant to many antibiotics (MDR) - continue vancomycin pGT (07/09/18/ - ) because Pt continues to have multiple BMs as a result of taking anti-pseudomonal antibiotics. Pt completed IV metronidazole (07/09/18-07/15/18) - I recommend neuro consult as Pt has progressive chronic toxic metabolic encephalopathy Management d/w patient and her RN Starla Consultation Date/Type/Reason Admit Date/Time May 06, 2018 at 17:38 Initial Consult Date 05/10/18 Type of Consult ID Requesting Provider: ROLAND GIRON MD Date/Time of Note DATE: 07/19/18 TIME: 23:25 24 HR Interval Summary Subjective hx not possible: pt non-verbal Exam/Review of Systems Exam Vitals Vital Signs Date Temp Pulse Resp B/P (MAP) Pulse Ox O2 O2 Flow FiO2 Time Delivery Rate 07/19/18 60 20:00 07/19/18 30 20:00 07/19/18 98.6 21 147/66 100 19:43 (93) 07/19/18 Mechanical 16:23 Ventilator Trach Collar Intake and Output 07/18/18 07/18/18 07/19/18 1515:00 23:00 07:00 IntakeIntake Total 1380 ml 500 ml 1340 ml OutputOutput Total 750 ml 1000 ml 1000 ml BalanceBalance 630 ml -500 ml 340 ml Constitutional: non-verbal, frail, obese Psych: confusion Head: normocephalic, atraumatic Eyes: nl conjunctiva, nl lids, nl sclera ENMT: nl external ears & nose, nl nasal mucosa & septum, mucosa pink and moist Neck: other (trach) Respiratory: crackles/rales, diminished breath sounds Cardiovascular: regular rate and rhythm, nl pulses Gastrointestinal: soft, non-tender, other (GT); No distended, No tender Genitourinary - Female: other (FC) Musculoskeletal: No swelling Extremities: edema Neurological: confused, lethargic, other (eyes are open but does not track) Results Result Diagram: 07/17/1863107/17/18 0632 Medications Medication Current Medications IV Flush (NS 10 ml) 10 ml PRN IV ; Start 05/06/18 at 20:30 Zinc Sulfate (Zinc Sulfate) 220 mg DAILY GTB Last administered on 07/19/18at 09:07; Admin Dose 220 MG; Start 05/07/18 at 09:00 Ondansetron HCl (Zofran Tab) 4 mg Q6H PRN GTB NAUSEA AND/OR VOMITING Last administered on 05/31/18at 16:47; Admin Dose 4 MG; Start 05/07/18 at 00:15 Multivitamins (Multivitamin) 30 ml DAILY GTB Last administered on 07/19/18at 09:07; Admin Dose 30 ML; Start 05/07/18 at 09:00 Miscellaneous Information (Pending Santyl Order For Wound Care) This patient goldman... PRN PRN XX WOUND CARE; Start 05/09/18 at 17:00 Famotidine (Pepcid) 20 mg DAILY PEG Last administered on 07/19/18at 09:07; Admin Dose 20 MG; Start 05/23/18 at 09:00 Morphine Sulfate (morphine) 6 mg Q4H PRN PEG SEVERE PAIN LEVEL 7-10 Last administered on 07/18/18at 05:13; Admin Dose 6 MG; Start 05/22/18 at 17:00 Acetaminophen (Tylenol Tab) 650 mg Q4H PRN PO MILD PAIN(1-3)OR ELEVATED TEMP Last administered on 07/16/18 00:42; Admin Dose 650 MG; Start 05/31/18 at 13:00 Collagenase (Santyl) 1 applic DAILY TOP Last administered on 07/19/18 09:08; Admin Dose 1 APPLIC; Start 06/01/18 at 09:00 Clonidine (Catapres) 0.1 mg Q6H PRN PO ELEVATED BLOOD PRESSURE Last administ ered on 07/09/18 09:08; Admin Dose 0.1 MG; Start 06/03/18 at 03:30 Bumetanide (Bumex) 1 mg BID DIURETICS GTB Last administered on 07/12/18 05:23; Admin Dose 1 MG; Start 06/11/18 at 18:00; Status Hold Miscellaneous Information 1 ea NOTE XX ; Start 06/26/18 at 08:00 Dicyclomine HCl (Bentyl) 20 mg Q8 PO Last administered on 07/19/18 21:45; Admin Dose 20 MG; Start 06/27/18 at 22:00 Cholestyramine Resin (Questran Light) 4 gm 0600,1200,1800,2300 GTB Last administered on 07/19/18 21:46; Admin Dose 4 GM; Start 06/27/18 at 18:00 Lorazepam (Ativan) 0.5 mg Q4 PRN IV ANXIETY Last administered on 07/13/18 11:07; Admin Dose 0.5 MG; Start 07/01/18 at 14:00 Amiodarone HCl (Cordarone) 200 mg Q8 GTB Last administered on 07/19/18 21:46; Admin Dose 200 MG; Start 07/05/18 at 22:00 Metoprolol Tartrate (Lopressor) 50 mg Q8 GTB Last administered on 07/19/18 21:46; Admin Dose 50 MG; Start 07/05/18 at 22:00 Citric Acid/ Sodium Citrate (Bicitra) 60 ml Q8 PO Last administered on 07/19/18 21:45; Admin Dose 60 ML; Start 07/09/18 at 14:00 Amikacin Sulfate (Amikacin Iv Per Pharmacy) 1 ea NOTE XX ; Start 07/09/18 at 17:30 Vancomycin HCl (Vancomycin Oral Syringe) 125 mg Q6 GTB Last administered on 07/19/18at 18:38; Admin Dose 125 MG; Start 07/09/18 at 18:00 Epoetin Zen-epbx (Retacrit (Non-Esrd)) 10,000 unit MoWeFr@1700 SC Last administered on 07/17/18at 17:38; Admin Dose 10,000 UNIT; Start 07/13/18 at 17:00 Cefepime HCl 50 ml @ 100 mls/hr Q24H IVPB Last administered on 07/19/18at 18:56; Admin Dose 100 MLS/HR; Start 07/14/18 at 18:30 Amikacin Sulfate 300 mg/Dextrose 101.2 ml @ 102 mls/hr Q24H IVPB ; Start 07/21/18 at 23:00 CELESTINE MURPHY M.D. Jul 19, 2018 23:33
[2018-07-20] VITALS (24 sets, daily range): BP systolic 119–158; BP diastolic 58–81; PULSE 61–64; RESP 20–25
[2018-07-20] MEDS: CITRIC ACID/NA CITRATE 30 ML CUP PO SCH ×3 (05:11→21:54)
[2018-07-20] MEDS: VANCOMYCIN HCL 250 MG/5ML POSYG GTB SCH ×3 (05:11→18:10)
[2018-07-20] MEDS: DICYCLOMINE 10 MG CAP PO SCH ×3 (05:11→21:54)
[2018-07-20] MEDS: morphine LIQ (10 MG/5 ML) CUP PEG PRN (05:12)
[2018-07-20] MEDS: CHOLESTYRAMINE (LIGHT) 4 GM PACKET GTB SCH ×4 (05:12→23:15)
[2018-07-20] MEDS: METOPROLOL 50 MG TAB GTB SCH ×3 (05:13→21:53)
[2018-07-20] MEDS: AMIODARONE 200 MG TAB GTB SCH ×3 (05:13→21:53)
--- NOTE | 2018-07-20 08:04 | CONS ---
Assessment/Plan Assessment/Plan Hospital Course (Demo Recall) 73 yo female 1. ABD pain -resolved 2. Renal failure -improved 3. Vent dependent resp failure 4. Chronic obstructive pulmonary disease. 5. Bipolar disorder 6. Paroxysmal atrial fibrillation. 7. Anemia of chronic disease. -stable 8. CHF 9. Diarrhea -s/p c diff colitis -taper off of vanco -resolved 10. H/O deep esophageal ulcer 11. Dysphagia with g tube PLAN: Continue present care Flush g tube 100 cc q 6 hours Pt examined and plan of care discussed with Dr Carolina Consultation Date/Type/Reason Admit Date/Time May 06, 2018 at 17:38 Initial Consult Date 05/10/18 Requesting Provider: ROLAND GIRON MD Date/Time of Note DATE: 07/20/18 TIME: 08:01 24 HR Interval Summary Free Text/Dictation No acute changes Exam/Review of Systems Exam Vitals Vital Signs Date Temp Pulse Resp B/P (MAP) Pulse Ox O2 O2 Flow FiO2 Time Delivery Rate 07/20/18 66 23 99 30 05:15 07/20/18 98.7 148/76 03:27 (100) 07/19/18 Mechanical 16:23 Ventilator Trach Collar Intake and Output 07/19/18 07/19/18 07/20/18 1515:00 23:00 07:00 IntakeIntake Total 1440 ml OutputOutput Total 650 ml BalanceBalance 790 ml Constitutional: alert, oriented Psych: no complaints Head: normocephalic Eyes: PERRL Respiratory: normal air movement Gastrointestinal: soft, non-tender, bowel sounds Neurological: nl mental status Results Result Diagram: 07/17/18 0632 07/17/18 0632 Results 24hrs Laboratory Tests Test 07/20/18 06:34 07/20/18 06:49 07/20/18 06:59 Lab Scanned Report REFERENCE LAB BLOOD TRANSFUSION REFERENCE LAB Medications Medication Current Medications IV Flush (NS 10 ml) 10 ml PRN IV ; Start 05/06/18 at 20:30 Zinc Sulfate (Zinc Sulfate) 220 mg DAILY GTB Last administered on 07/19/18at 09:07; Admin Dose 220 MG; Start 05/07/18 at 09:00 Ondansetron HCl (Zofran Tab) 4 mg Q6H PRN GTB NAUSEA AND/OR VOMITING Last administered on 05/31/18 16:47; Admin Dose 4 MG; Start 05/07/18 at 00:15 Multivitamins (Multivitamin) 30 ml DAILY GTB Last administered on 07/19/18 09:07; Admin Dose 30 ML; Start 05/07/18 at 09:00 Miscellaneous Information (Pending Santyl Order For Wound Care) This patient goldman... PRN PRN XX WOUND CARE; Start 05/09/18 at 17:00 Famotidine (Pepcid) 20 mg DAILY PEG Last administered on 07/19/18 09:07; Admin Dose 20 MG; Start 05/23/18 at 09:00 Morphine Sulfate (morphine) 6 mg Q4H PRN PEG SEVERE PAIN LEVEL 7-10 Last administered on 07/20/18 05:12; Admin Dose 6 MG; Start 05/22/18 at 17:00 Acetaminophen (Tylenol Tab) 650 mg Q4H PRN PO MILD PAIN(1-3)OR ELEVATED TEMP Last administered on 07/16/18 00:42; Admin Dose 650 MG; Start 05/31/18 at 13:00 Collagenase (Santyl) 1 applic DAILY TOP Last administered on 07/19/18 09:08; Admin Dose 1 APPLIC; Start 06/01/18 at 09:00 Clonidine (Catapres) 0.1 mg Q6H PRN PO ELEVATED BLOOD PRESSURE Last administered on 07/09/18 09:08; Admin Dose 0.1 MG; Start 06/03/18 at 03:30 Bumetanide (Bumex) 1 mg BID DIURETICS GTB Last administered on 07/12/18 05:23; Admin Dose 1 MG; Start 06/11/18 at 18:00; Status Hold Miscellaneous Information 1 ea NOTE XX ; Start 06/26/18 at 08:00 Dicyclomine HCl (Bentyl) 20 mg Q8 PO Last administered on 07/20/18 05:11; Admin Dose 20 MG; Start 06/27/18 at 22:00 Cholestyramine Resin (Questran Light) 4 gm 0600,1200,1800,2300 GTB Last administered on 07/20/18 05:12; Admin Dose 4 GM; Start 06/27/18 at 18:00 Lorazepam (Ativan) 0.5 mg Q4 PRN IV ANXIETY Last administered on 07/13/18 11:07; Admin Dose 0.5 MG; Start 07/01/18 at 14:00 Amiodarone HCl (Cordarone) 200 mg Q8 GTB Last administered on 07/20/18 05:13; Admin Dose 200 MG; Start 07/05/18 at 22:00 Metoprolol Tartrate (Lopressor) 50 mg Q8 GTB Last administered on 07/20/18 05:13; Admin Dose 50 MG; Start 07/05/18 at 22:00 Citric Acid/ Sodium Citrate (Bicitra) 60 ml Q8 PO Last administered on 07/20/18 05:11; Admin Dose 60 ML; Start 07/09/18 at 14:00 Amikacin Sulfate (Amikacin Iv Per Pharmacy) 1 ea NOTE XX ; Start 07/09/18 at 17:30 Vancomycin HCl (Vancomycin Oral Syringe) 125 mg Q6 GTB Last administered on 07/20/18 05:11; Admin Dose 125 MG; Start 07/09/18 at 18:00 Epoetin Zen-epbx (Retacrit (Non-Esrd)) 10,000 unit MoWeFr@1700 SC Last administered on 07/17/18 17:38; Admin Dose 10,000 UNIT; Start 07/13/18 at 17:00 Cefepime HCl 50 ml @ 100 mls/hr Q24H IVPB Last administered on 07/19/18 18:56; Admin Dose 100 MLS/HR; Start 07/14/18 at 18:30 Amikacin Sulfate 300 mg/Dextrose 101.2 ml @ 102 mls/hr Q24H IVPB ; Start 07/21/18 at 23:00 SHAHEEN GAMBOA Jul 20, 2018 08:03
[2018-07-20] MEDS: COLLAGENASE 5 GM (UD JAR) TOP SCH (09:01)
[2018-07-20] MEDS: FAMOTIDINE 20 MG TAB PEG SCH (09:01)
[2018-07-20] MEDS: ZINC SULFATE 220 MG CAP GTB SCH (09:01)
[2018-07-20] MEDS: MULTIVITAMINS 30 ML CUP GTB SCH (09:01)
[2018-07-20] MEDS: BALSAM PERU/CASTOR OIL 60 GM TUBE TOP SCH ×2 (09:03→21:52)
--- NOTE | 2018-07-20 13:53 | PN ---
DATE: 07/20/2018 SUBJECTIVE: The patient is lethargic. No other events noted. No hemoptysis, hematemesis, hematoche kimberly. OBJECTIVE: VITAL SIGNS: Blood pressure is 148/74, pulse 61, respirations 20, temperature is 98.5. HEENT: Head is normocephalic. NECK: Supple. HEART: Regular rate. LUNGS: Show diminished breath sounds at the base. ABDOMEN: Soft, nontender to palpation without rebound or guarding. EXTREMITIES: Negative for clubbing, cyanosis. Trace edema. DERMATOLOGIC: No rashes. MUSCULOSKELETAL: No joint effusion. NEUROLOGIC: No change in exam. MEDICATIONS: Reviewed. LABORATORY DATA: Has been reviewed. IMAGING STUDIES: Have been reviewed. ASSESSMENT AND PLAN: 1. Nonoliguric acute kidney injury with previous baseline creatinine of 2.0 mg/dL. Etiology of acut e kidney injury was initially secondary to acute tubular necrosis. The patient was on hemodialysis f or approximately 2 weeks. The patient showed adequate renal recovery and Juan catheter was remove d. The patient had recurrent acute kidney injury, likely due to underlying sepsis. Renal function h as been fluctuating but appears to be stabilizing. Will continue current treatment plan, supportive care, renally dose all meds. Follow up renal panel. No immediate need for renal replacement therapy . 2. Hypernatremia, improved. Continue free water flushes. 3. Hypokalemia. Continue to monitor and replete. 4. Hypomagnesemia. Continue to monitor. 5. Metabolic acidosis, improved. Continue Bicitra. 6. Volume overload. Continue intermittent diuretic therapy as needed. 7. Anemia. Monitor hemoglobin and hematocrit levels. Continue Epogen. 8. Ventilator-dependent respiratory failure. Vent settings have been reviewed. Continue to monitor . Follow up with pulmonary. 9. Sepsis. Continue current antibiotic regimen. Repeat cultures have been negative. 10. Dysphagia. Continue tube feeding. 11. Lower extremity wounds. Continue wound care. Dictated By: JEANA FINE/TABATHA Conf#: [id number] DID#: [id number] CC: ROLAND GIRON MD;*EndCC*
--- NOTE | 2018-07-20 14:59 | CONS ---
Assessment/Plan Assessment/Plan Hospital Course (Demo Recall) Septic as well as hemorrhagic shock, improving Acute respiratory failure status post intubation and repeat tracheostomy Acute blood loss anemia History of respiratory failure status post decannulation Preserved ejection fraction echocardiogram 05/10/2018 Paroxysmal atrial fibrillation Acute kidney injury -Antibiotics as per infectious disease -Blood pressure trend overall stable. Continue beta-tin as tolerated -Patient with paroxysmal atrial fibrillation, currently in sinus rhythm -Continue amiodarone as tolerated -Vent management as per pulmonary -Fluid management and electrolytes as per renal -No anticoagulation given recurrent anemia requiring blood transfusions Consultation Date/Type/Reason Admit Date/Time May 06, 2018 at 17:38 Initial Consult Date 05/10/18 Type of Consult Cardiology Requesting Provider: ROLAND GIRON MD Date/Time of Note DATE: 07/20/18 TIME: 14:57 24 HR Interval Summary Free Text/Dictation Patient seen and examined Exam/Review of Systems Vital Signs Vitals Vital Signs Date Temp Pulse Resp B/P (MAP) Pulse Ox O2 O2 Flow FiO2 Time Delivery Rate 07/20/18 62 131/66 14:01 (87) 07/20/18 98.3 20 100 Trach 11:59 Collar 07/20/18 30 11:35 Intake and Output 07/19/18 07/19/18 07/20/18 1515:00 23:00 07:00 IntakeIntake Total 1440 ml OutputOutput Total 650 ml BalanceBalance 790 ml Exam Constitutional: alert (Not answering questions, no apparent distress) Head: normocephalic Respiratory: other (Coarse breath sounds bilaterally, no wheezing) Cardiovascular: regular rate and rhythm, other (S1-S2 heard) Gastrointestinal: soft, non-tender, bowel sounds Extremities: edema Labs Result Diagram: 07/20/18 0717 07/20/18 0717 Results 24hrs Laboratory Tests Test 07/20/18 06:34 07/20/18 06:49 07/20/18 06:59 07/20/18 07:17 Lab Scanned REFERENCE LAB BLOOD TRANSFUSI REFERENCE LAB Report ON White Blood 10.3 Count Red Blood Count 2.66 L Hemoglobin 8.5 L Hematocrit 27.6 L Mean 103.8 H Corpuscular Volume Mean 32.0 Corpuscular Hemoglobin Mean 30.8 L Corpuscular Hemoglobin Conc ent Red Cell 21.5 H Distribution Width Platelet Count 249 Mean Platelet 10.8 H Volume Immature 0.300 Granulocytes % Neutrophils % 83.3 H Lymphocytes % 8.6 L Monocytes % 5.3 Eosinophils % 2.2 Basophils % 0.3 Nucleated Red 0.0 Blood Cells % Immature 0.030 Granulocytes # Neutrophils # 8.5 H Lymphocytes # 0.9 Monocytes # 0.5 Eosinophils # 0.2 Basophils # 0.0 Nucleated Red 0.0 Blood Cells # Sodium Level 136 Potassium Level 3.7 Chloride Level 97 Carbon Dioxide 26 Level Anion Gap 13 Blood Urea 97 H Nitrogen Creatinine 2.13 H Est Glomerular Filtrat Rate mL/min Glucose Level 114 Calcium Level 9.0 Phosphorus 3.9 Level Magnesium Level 1.8 Medications Medications Current Medications IV Flush (NS 10 ml) 10 ml PRN IV ; Start 05/06/18 at 20:30 Zinc Sulfate (Zinc Sulfate) 220 mg DAILY GTB Last administered on 07/20/18 09:01; Admin Dose 220 MG; Start 05/07/18 at 09:00 Ondansetron HCl (Zofran Tab) 4 mg Q6H PRN GTB NAUSEA AND/OR VOMITING Last administered on 05/31/18 16:47; Admin Dose 4 MG; Start 05/07/18 at 00:15 Multivitamins (Multivitamin) 30 ml DAILY GTB Last administered on 07/20/18 09:01; Admin Dose 30 ML; Start 05/07/18 at 09:00 Miscellaneous Information (Pending Santyl Order For Wound Care) This patient goldman... PRN PRN XX WOUND CARE; Start 05/09/18 at 17:00 Famotidine (Pepcid) 20 mg DAILY PEG Last administered on 07/20/18 09:01; Admin Dose 20 MG; Start 05/23/18 at 09:00 Morphine Sulfate (morphine) 6 mg Q4H PRN PEG SEVERE PAIN LEVEL 7-10 Last administered on 07/20/18 05:12; Admin Dose 6 MG; Start 05/22/18 at 17:00 Acetaminophen (Tylenol Tab) 650 mg Q4H PRN PO MILD PAIN(1-3)OR ELEVATED TEMP [facility] administered on 07/16/18 00:42; Admin Dose 650 MG; Start 05/31/18 at 13:00 Collagenase (Santyl) 1 applic DAILY TOP Last administered on 07/20/18 09:01; Admin Dose 1 APPLIC; Start 06/01/18 at 09:00 Clonidine (Catapres) 0.1 mg Q6H PRN PO ELEVATED BLOOD PRESSURE Last administered on 07/09/18 09:08; Admin Dose 0.1 MG; Start 06/03/18 at 03:30 Bumetanide (Bumex) 1 mg BID DIURETICS GTB Last administered on 07/12/18 05:23; Admin Dose 1 MG; Start 06/11/18 at 18:00; Status Hold Miscellaneous Information 1 ea NOTE XX ; Start 06/26/18 at 08:00 Dicyclomine HCl (Bentyl) 20 mg Q8 PO Last administered on 07/20/18 14:00; Admin Dose 20 MG; Start 06/27/18 at 22:00 Cholestyramine Resin (Questran Light) 4 gm 0600,1200,1800,2300 GTB Last administered on 07/20/18 12:25; Admin Dose 4 GM; Start 06/27/18 at 18:00 Lorazepam (Ativan) 0.5 mg Q4 PRN IV ANXIETY Last administered on 07/13/18 11:07; Admin Dose 0.5 MG; Start 07/01/18 at 14:00 Amiodarone HCl (Cordarone) 200 mg Q8 GTB Last administered on 07/20/18 14:01; Admin Dose 200 MG; Start 07/05/18 at 22:00 Metoprolol Tartrate (Lopressor) 50 mg Q8 GTB Last administered on 07/20/18 14:01; Admin Dose 50 MG; Start 07/05/18 at 22:00 Citric Acid/ Sodium Citrate (Bicitra) 60 ml Q8 PO Last administered on 07/20/18 14:00; Admin Dose 60 ML; Start 07/09/18 at 14:00 Amikacin Sulfate (Amikacin Iv Per Pharmacy) 1 ea NOTE XX ; Start 07/09/18 at 17:30 Vancomycin HCl (Vancomycin Oral Syringe) 125 mg Q6 GTB Last administered on 07/20/18 12:25; Admin Dose 125 MG; Start 07/09/18 at 18:00 Epoetin Zen-epbx (Retacrit (Non-Esrd)) 10,000 unit MoWeFr@1700 SC Last administered on 5/31/19at 17:38; Admin Dose 10,000 UNIT; Start 07/13/18 at 17:00 Cefepime HCl 50 ml @ 100 mls/hr Q24H IVPB Last administered on 07/19/18at 18:56; Admin Dose 100 MLS/HR; Start 07/14/18 at 18:30 Amikacin Sulfate 300 mg/Dextrose 101.2 ml @ 102 mls/hr Q24H IVPB ; Start 07/21/18 at 23:00 Evangelista Scanlon DO Jul 20, 2018 14:59
--- NOTE | 2018-07-20 16:42 | CONS ---
Assessment/Plan Assessment/Plan Hospital Course (Demo Recall) # sepsis, leukocytosis, SIRS, pulmonary, cardiac - recurrent leukocytosis due to bacteremia (below), improved - s/p septic shock due to pneumonia and C diff colitis - acute on chronic hypoxic respiratory failure, persistent - s/p reintubation 05/12/2018 - s/p re-do trach on 05/29/2018 - recurrent colonization of the anterior neck wound with ESBL+kleb, MRSA, GBS, corynebacteria on 05/06/2018 - h/o pneumonia vs. colonization of the airway by pseudomonas and ESBL+klebsiella - h/o possible, recurrent HCAP due to pseudomonas and ESBL+klebsiella - h/o recurrent HCAP due to MRSA and Enterobacter (culture of tracheal aspirate on 07/16/2017 that was collected at [facility]) . Pt took vancomycin and ceftazidime - h/o decannulation prior to admission - h/o tracheostomy on 06/11/2017 - h/o SIRS from UGIB in 2018 - h/o thoracentesis on 07/18/2017, transudative (protein <2, LDH 279) - h/o bleeding from the trach site in 2018 - h/o septic shock due to pneumonia, ARDS, bacteremia, fungemia in 2018 - h/o ARDS in 2018 - h/o smoking - COPD - h/o ILD per medical record - h/o PAF, improved # GI - s/p possible ileus or enterocolitis on CT abd/pel 06/15/2018-->follow up CT on 07/15/2018 showed no evidence of urolithiasis, obstructive uropathy or diverticulitis; it showed small to moderate ascites - C diff colitis, diagnosed on 05/11/2018. Pt is on pGT vancomycin (05/11/2018-); Pt previously took IV metronidazole (05/11/2018-05/29/2018; restart 05/30/2018- 06/05/18) too - Pt had multiple negative C. diff tests at [facility] and at OSH in the past; none was positive until 05/11/2018 - dysphagia - h/o PEG placement 06/13/2018 - protein calorie malnutrition - h/o coffee ground emesis/UGIB on 12/23/2017 due to deep ulceration of distal esophagus and gastritis on EGD 12/26/2017. No e/o H. pylori - h/o possible appendicitis on CT on 11/22/2017, Pt took ertapenem (11/24/2017- 12/01/2017) - h/o extensive adhesions lower abdominal and pelvis between small bowel to each other and to colon and to abdominal wall, anterior pelvic wall chronic abscess secondary to probably an old perforated diverticulitis, torsion of small bowel around these dense adhesion causing multiple obstructive points - h/o laparoscopic exploration and extensive lysis of adhesions and drainage of anterior pelvic wall abscess 09/16/2017. Cultures were negative, no e/o malignancy. Pt took pip/tazo (09/16/2017-09/26/2017) - h/o EGD and exchange of PEG on 09/01/2017 - h/o partial obstruction mid jejunum in L anterior central pelvis with suggestion of a 3 cm soft tissue mass on CT 08/28/2017 - h/o internal stomal deep ulcer behind the internal bumper, gastritis and esophagitis, Rodriguez's cannot be ruled out, per EGD with biopsy 07/23/2017 - h/o GIB s/p flex sig showed polyp; stool OB negative on 06/29/17 - h/o stool OB positive status - h/o SBO and ileus due to pain meds - h/o mildly elevated CEA # renal/ - s/p recurrent UTI due to pseudomonas (culture on 07/09/2018)-->Garza catheter was replaced on 07/14/2018 - s/p UTI due to MDR, CRE-klebsiella on 06/15/2018. S/p renally dosed amikacin for klebsiella in her urine culture (06/17-06/22/2018) - s/p UTI due to pseudomonas and ESBL+klebsiella on 06/09/2018, Pt took one dose of fosfomycin on 06/10/2018 and cipro 06/12-06/15/2018 - anasarca - started on HD on 05/15/2018, via Juan in R groin - recurrent NATHAN on CKD - 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 Her strain of CRE was sensitive to colistin, Avycaz, and Vabomere but resistant to Zerbaxa (reported on 05/19/2018) - metabolic acidosis - adrenal insufficiency - h/o vaginal bleed in 2018 - h/o colonization of urinary tract by ESBL+klebsiella, VRE - h/o recurrent, symptomatic UTI due to carbapenem-resistant kleb (MDR strain) per urine culture 10/04/17, 10/09/17, 10/21/2017, P took colistin (10/09/2017- 10/15/2017), fosfomycin for carbapenemase-producing klebsiella and VRE on 10/25/2017 and 10/28/2017 - h/o funguria - h/o urinary retention # bloodstream infections - Bacteremia d/t pseudomonas aeruginosa 07/09/18, 07/10/18, 07/11/18, 07/12/18, 07/13/18, 07/15/18, 07/17/18. This is associated with PICC because the blood culture from PICC and phlebotomy on 07/13/2018 both grew the same bacteria. 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; Pt declined surgery for MVR per outside medical records; TTE 07/01/17 did not mentio n any thrombus; s/p voriconazole (05/25/2017-08/01/2017) - h/o bacteremia due to MSSA and proteus s/p ceftriaxone; repeat blood cultures were negative on 06/14/2017 # musculoskeletal and dermatological - dry skin - chronic wound of LLE - h/o infection of wound of LLE - h/o debridement of wound of LLE on 08/06/2017 - h/o recurrent herpes labialis, Pt took acyclovir, valacyclovir - h/o Osler's nodes (eschar) of R toes with erythematous skin; desquamation of the skin and open lacerations on R plantar foot. improved. Probable manifestation of endocarditis. Pt declined MRI on 08/06/2017 - h/o infection of R toes due to pseudomonas. coagulase negative Staph likely a colonizer - h/o intertrigo of the groin, resolved with nystatin powder - h/o scabies, locally crusted lesion over L scapula, s/p permethrin cream and pGT ivermectin on 08/11/2017, 08/12/2017, 08/19/2017. Repeat skin scraping on 08/21/2017 was negative for scabies # psych, neuro - chronic toxic metabolic encephalopathy, progressing - decreased hearing b/l - h/o critical illness polyneuropathy - anxiety/depression, bipolar d/o, seen by Psychiatry in the past - chronic pain syndrome - h/o medical non-compliance: she would refuse her medications, treatment and straight catheterization in 2018 # hematological, vascular - chronic anemia requiring blood transfusion intermittently - macrocytic anemia - aneurysmal dilatation of the distal aorta visualized on CT 06/15/2018 - PVD recommendations: - pending results: repeat blood cultures from 07/18/2018 (negative so far) - please do transthoracic echo when Pt is agreeable to r/o endocarditis - continue amikacin IV (07/09/2018-). Pt had a strain of pseudomonas that was resistant to all except for aminoglycoside - continue renally dosed cefepime (07/14/2018-); Pt needs double coverage because amikacin alone has not cleared her bacteremia. Some strains of pseudomonas she had were pansensitive while other strains of pseudomonas were resistant to many antibiotics (MDR) - continue vancomycin pGT (07/09/18/ - ) because Pt continues to have multiple BMs as a result of taking anti-pseudomonal antibiotics. Pt completed IV metronidazole (07/09/18-07/15/18) - we recommend neuro consult as Pt has progressive chronic toxic metabolic encephalopathy Management d/w JAYANT Yoder and with Dr. Doyle Consultation Date/Type/Reason Admit Date/Time May 06, 2018 at 17:38 Initial Consult Date 05/07/18 Type of Consult Infectious Disease Requesting Provider: ROLAND GIRON MD Date/Time of Note DATE: 07/20/18 TIME: 16:40 24 HR Interval Summary Free Text/Dictation Pt with loose stool. Unable to perform ROS as pt does not nod to simple questions. Subjective hx not possible: pt non-verbal Exam/Review of Systems Exam Vitals Vital Signs Date Temp Pulse Resp B/P (MAP) Pulse Ox O2 O2 Flow FiO2 Time Delivery Rate 07/20/18 98.0 61 20 140/67 100 Trach 16:00 (91) Collar 07/20/18 30 11:35 Intake and Output 07/19/18 07/19/18 07/20/18 1515:00 23:00 07:00 IntakeIntake Total 1440 ml OutputOutput Total 650 ml BalanceBalance 790 ml Exam Constitutional: well developed, frail, obese Psych: other (unable to assess; flat affect) Head: normocephalic, atraumatic Eyes: nl conjunctiva, nl lids, nl sclera ENMT: nl external ears & nose, nl nasal mucosa & septum, other (MM pink and slightly dry) Neck: non-tender, other (trach is midline and connected to ventilator support) Respiratory: diminished breath sounds, other (coarse breath sounds); No wheezing Cardiovascular: regular rate and rhythm Gastrointestinal: soft, tender (nonspecific; no guarding; G-tube intact) Genitourinary - Female: other (Garza in place) Musculoskeletal: muscle weakness Extremities: other (bilateral foot drop) Neurological: lethargic, other (eyes open, rarely tracking; no commands) Skin: ecchymosis, other (R foot and L [place] wrapped with Kerlix c/d/i) Results Result Diagram: 07/20/18 0717 07/20/18 0717 Results 24hrs Laboratory Tests Test 07/20/18 06:34 07/20/18 06:49 07/20/18 06:59 07/20/18 07:17 Lab Scanned REFERENCE LAB BLOOD TRANSFUSI REFERENCE LAB Report ON White Blood 10.3 Count Red Blood Count 2.66 L Hemoglobin 8.5 L Hematocrit 27.6 L Mean 103.8 H Corpuscular Volume Mean 32.0 Corpuscular Hemoglobin Mean 30.8 L Corpuscular Hemoglobin Conc ent Red Cell 21.5 H Distribution Width Platelet Count 249 Mean Platelet 10.8 H Volume Immature 0.300 Granulocytes % Neutrophils % 83.3 H Lymphocytes % 8.6 L Monocytes % 5.3 Eosinophils % 2.2 Basophils % 0.3 Nucleated Red 0.0 Blood Cells % Immature 0.030 Granulocytes # Neutrophils # 8.5 H Lymphocytes # 0.9 Monocytes # 0.5 Eosinophils # 0.2 Basophils # 0.0 Nucleated Red 0.0 Blood Cells # Sodium Level 136 Potassium Level 3.7 Chloride Level 97 Carbon Dioxide 26 Level Anion Gap 13 Blood Urea 97 H Nitrogen Creatinine 2.13 H Est Glomerular Filtrat Rate mL/min Glucose Level 114 Calcium Level 9.0 Phosphorus 3.9 Level Magnesium Level 1.8 Medications Medication Current Medications IV Flush (NS 10 ml) 10 ml PRN IV ; Start 05/06/18 at 20:30 Zinc Sulfate (Zinc Sulfate) 220 mg DAILY GTB Last administered on 07/20/18 09:01; Admin Dose 220 MG; Start 05/07/18 at 09:00 Ondansetron HCl (Zofran Tab) 4 mg Q6H PRN GTB NAUSEA AND/OR VOMITING Last administered on 05/31/18 16:47; Admin Dose 4 MG; Start 05/07/18 at 00:15 Multivitamins (Multivitamin) 30 ml DAILY GTB Last administered on 07/20/18 09:01; Admin Dose 30 ML; Start 05/07/18 at 09:00 Miscellaneous Information (Pending Santyl Order For Wound Care) This patient goldman... PRN PRN XX WOUND CARE; Start 05/09/18 at 17:00 Famotidine (Pepcid) 20 mg DAILY PEG Last administered on 07/20/18 09:01; Admin Dose 20 MG; Start 05/23/18 at 09:00 Morphine Sulfate (morphine) 6 mg Q4H PRN PEG SEVERE PAIN LEVEL 7-10 Last administered on 07/20/18 05:12; Admin Dose 6 MG; Start 05/22/18 at 17:00 Acetaminophen (Tylenol Tab) 650 mg Q4H PRN PO MILD PAIN(1-3)OR ELEVATED TEMP Last administered on 07/16/18 00:42; Admin Dose 650 MG; Start 05/31/18 at 13:00 Collagenase (Santyl) 1 applic DAILY TOP Last administered on 07/20/18 09:01; Admin Dose 1 APPLIC; Start 06/01/18 at 09:00 Clonidine (Catapres) 0.1 mg Q6H PRN PO ELEVATED BLOOD PRESSURE Last administered on 07/09/18 09:08; Admin Dose 0.1 MG; Start 06/03/18 at 03:30 Bumetanide (Bumex) 1 mg BID DIURETICS GTB Last administered on 07/12/18 05:23; Admin Dose 1 MG; Start 06/11/18 at 18:00; Status Hold Miscellaneous Information 1 ea NOTE XX ; Start 06/26/18 at 08:00 Dicyclomine HCl (Bentyl) 20 mg Q8 PO Last administered on 07/20/18 14:00; Admin Dose 20 MG; Start 06/27/18 at 22:00 Cholestyramine Resin (Questran Light) 4 gm 0600,1200,1800,2300 GTB Last administered on 07/20/18 12:25; Admin Dose 4 GM; Start 06/27/18 at 18:00 Lorazepam (Ativan) 0.5 mg Q4 PRN IV ANXIETY Last administered on 07/13/18 11:07; Admin Dose 0.5 MG; Start 07/01/18 at 14:00 Amiodarone HCl (Cordarone) 200 mg Q8 GTB Last administered on 07/20/18 14:01; Admin Dose 200 MG; Start 07/05/18 at 22:00 Metoprolol Tartrate (Lopressor) 50 mg Q8 GTB Last administered on 07/20/18 14:01; Admin Dose 50 MG; Start 07/05/18 at 22:00 Citric Acid/ Sodium Citrate (Bicitra) 60 ml Q8 PO Last administered on 07/20/18 14:00; Admin Dose 60 ML; Start 07/09/18 at 14:00 Amikacin Sulfate (Amikacin Iv Per Pharmacy) 1 ea NOTE XX ; Start 07/09/18 at 17:30 Vancomycin HCl (Vancomycin Oral Syringe) 125 mg Q6 GTB Last administered on 07/20/18 12:25; Admin Dose 125 MG; Start 07/09/18 at 18:00 Epoetin Zen-epbx (Retacrit (Non-Esrd)) 10,000 unit MoWeFr@1700 SC Last administered on 07/17/18 17:38; Admin Dose 10,000 UNIT; Start 07/13/18 at 17:00 Cefepime HCl 50 ml @ 100 mls/hr Q24H IVPB Last administered on 07/19/18 18:56; Admin Dose 100 MLS/HR; Start 07/14/18 at 18:30 Amikacin Sulfate 300 mg/Dextrose 101.2 ml @ 102 mls/hr Q24H IVPB ; Start 9 at 23:00 LAURA JOSHI NP Jul 20, 2018 16:42
--- NOTE | 2018-07-20 17:05 | PN ---
Date/Time of Note Date/Time of Note DATE: 07/20/18 TIME: 17:04 Assessment/Plan VTE Prophylaxis Risk score (from [facility])>0 risk: 8 SCD applied (from [facility]): Yes Pharmacological prophylaxis: NA/contraindicated Pharm contraindication: anticoag not tolerated Lines/Catheters IV Catheter Type (from [facility]): Peripheral IV Central line still needed: Yes Urinary Cath still in place: Yes Reason Cath still needed: urinary retention Assessment/Plan Hospital Course Pt is comfortable on vent, no fever, leukocytosis resolved. Assessment/Plan -Persistent leukocytosis with Pseudomonas bacteremia 2 to PICC line infection, continue antibiotics per ID. Dr. Walton is following in infection disease consultation. -MDR Klebsiella urinary tract infection, completed treatment with amikacin. -Atrial fibrillation was rapid ventricular response, patient remains in sinus rhythm continue metoprolol and amiodarone. Dr. Scanlon is following in cardiology consultation. -S/p septic shock secondary to urinary tract infection, anterior neck soft tissue infection, and C. difficile colitis. -C-diff colitis,resolved. -Acute respiratory failure requiring intubation and ventilatory support. Dr. Lambert is following in pulmonology consultation. -S/p tracheostomy on 05/29/18. -Acute kidney injury on chronic kidney disease. Started on HD this admission with recovery of renal function. Dr. Mckeon is following in nephrology consultation. -Anemia of chronic inflammation, stool for OB is negative, status post blood transfusion. Continue Epogen. -Metabolic acidosis, resolved. -Acute diastolic congestive heart failure. -Paroxysmal atrial fibrillation -COPD -Dysphagia with PEG. -G-tube mild malfunction, changed by GI Dr. Carolina is following in gastroenterology consultation. -Obesity -Critical care myopathy Further recommendations based on clinical course. Plan of care discussed with Dr. Eisenberg. Result Diagram: 07/20/18 0717 07/20/18 0717 Results 24hrs Laboratory Tests Test 07/20/18 06:34 07/20/18 06:49 07/20/18 06:59 07/20/18 07:17 Lab Scanned REFERENCE LAB BLOOD TRANSFUSI REFERENCE LAB Report ON White Blood 10.3 Count Red Blood Count 2.66 L Hemoglobin 8.5 L Hematocrit 27.6 L Mean 103.8 H Corpuscular Volume Mean 32.0 Corpuscular Hemoglobin Mean 30.8 L Corpuscular Hemoglobin Conc ent Red Cell 21.5 H Distribution Width Platelet Count 249 Mean Platelet 10.8 H Volume Immature 0.300 Granulocytes % Neutrophils % 83.3 H Lymphocytes % 8.6 L Monocytes % 5.3 Eosinophils % 2.2 Basophils % 0.3 Nucleated Red 0.0 Blood Cells % Immature 0.030 Granulocytes # Neutrophils # 8.5 H Lymphocytes # 0.9 Monocytes # 0.5 Eosinophils # 0.2 Basophils # 0.0 Nucleated Red 0.0 Blood Cells # Sodium Level 136 Potassium Level 3.7 Chloride Level 97 Carbon Dioxide 26 Level Anion Gap 13 Blood Urea 97 H Nitrogen Creatinine 2.13 H Est Glomerular Filtrat Rate mL/min Glucose Level 114 Calcium Level 9.0 Phosphorus 3.9 Level Magnesium Level 1.8 Exam/Review of Systems Exam Vitals Vital Signs Date Temp Pulse Resp B/P (MAP) Pulse Ox O2 O2 Flow FiO2 Time Delivery Rate 07/20/18 61 16:01 07/20/18 98.0 20 140/67 100 Trach 16:00 (91) Collar 07/20/18 30 11:35 Intake and Output 07/19/18 07/19/18 07/20/18 1515:00 23:00 07:00 IntakeIntake Total 1440 ml OutputOutput Total 650 ml BalanceBalance 790 ml Exam Constitutional: alert, oriented Neck: other (Tracheostomy) Respiratory: diminished breath sounds Cardiovascular: regular rate and rhythm Gastrointestinal: soft, non-tender, other (G-tube) Extremities: normal pulses Neurological: nl mental status Results Results 24hrs Laboratory Tests Test 07/20/18 06:34 07/20/18 06:49 07/20/18 06:59 07/20/18 07:17 Lab Scanned REFERENCE LAB BLOOD TRANSFUSI REFERENCE LAB Report ON White Blood 10.3 Count Red Blood Count 2.66 L Hemoglobin 8.5 L Hematocrit 27.6 L Mean 103.8 H Corpuscular Volume Mean 32.0 Corpuscular Hemoglobin Mean 30.8 L Corpuscular Hemoglobin Conc ent Red Cell 21.5 H Distribution Width Platelet Count 249 Mean Platelet 10.8 H Volume Immature 0.300 Granulocytes % Neutrophils % 83.3 H Lymphocytes % 8.6 L Monocytes % 5.3 Eosinophils % 2.2 Basophils % 0.3 Nucleated Red 0.0 Blood Cells % Immature 0.030 Granulocytes # Neutrophils # 8.5 H Lymphocytes # 0.9 Monocytes # 0.5 Eosinophils # 0.2 Basophils # 0.0 Nucleated Red 0.0 Blood Cells # Sodium Level 136 Potassium Level 3.7 Chloride Level 97 Carbon Dioxide 26 Level Anion Gap 13 Blood Urea 97 H Nitrogen Creatinine 2.13 H Est Glomerular Filtrat Rate mL/min Glucose Level 114 Calcium Level 9.0 Phosphorus 3.9 Level Magnesium Level 1.8 Medications Medication Current Medications IV Flush (NS 10 ml) 10 ml PRN IV ; Start 05/06/18 at 20:30 Zinc Sulfate (Zinc Sulfate) 220 mg DAILY GTB Last administered on 07/20/18 09:01; Admin Dose 220 MG; Start 05/07/18 at 09:00 Ondansetron HCl (Zofran Tab) 4 mg Q6H PRN GTB NAUSEA AND/OR VOMITING Last administered on 05/31/18 16:47; Admin Dose 4 MG; Start 05/07/18 at 00:15 Multivitamins (Multivitamin) 30 ml DAILY GTB Last administered on 07/20/18 09:01; Admin Dose 30 ML; Start 05/07/18 at 09:00 Miscellaneous Information (Pending Santyl Order For Wound Care) This patient goldman... PRN PRN XX WOUND CARE; Start 05/09/18 at 17:00 Famotidine (Pepcid) 20 mg DAILY PEG Last administered on 07/20/18 09:01; Admin Dose 20 MG; Start 05/23/18 at 09:00 Morphine Sulfate (morphine) 6 mg Q4H PRN PEG SEVERE PAIN LEVEL 7-10 Last administered on 07/20/18 05:12; Admin Dose 6 MG; Start 05/22/18 at 17:00 Acetaminophen (Tylenol Tab) 650 mg Q4H PRN PO MILD PAIN(1-3)OR ELEVATED TEMP Last administered on 07/16/18 00:42; Admin Dose 650 MG; Start 05/31/18 at 13:00 Collagenase (Santyl) 1 applic DAILY TOP Last administered on 07/20/18 09:01; Admin Dose 1 APPLIC; Start 06/01/18 at 09:00 Clonidine (Catapres) 0.1 mg Q6H PRN PO ELEVATED BLOOD PRESSURE Last administered on 07/09/18 09:08; Admin Dose 0.1 MG; Start 06/03/18 at 03:30 Bumetanide (Bumex) 1 mg BID DIURETICS GTB Last administered on 07/12/18 05:23; Admin Dose 1 MG; Start 06/11/18 at 18:00; Status Hold Miscellaneous Information 1 ea NOTE XX ; Start 06/26/18 at 08:00 Dicyclomine HCl (Bentyl) 20 mg Q8 PO Last administered on 07/20/18 14:00; Admin Dose 20 MG; Start 06/27/18 at 22:00 Cholestyramine Resin (Questran Light) 4 gm 0600,1200,1800,2300 GTB Last administered on 07/20/18 12:25; Admin Dose 4 GM; Start 06/27/18 at 18:00 Lorazepam (Ativan) 0.5 mg Q4 PRN IV ANXIETY Last administered on 07/13/18 11:07; Admin Dose 0.5 MG; Start 07/01/18 at 14:00 Amiodarone HCl (Cordarone) 200 mg Q8 GTB Last administered on 07/20/18 14:01; Admin Dose 200 MG; Start 07/05/18 at 22:00 Metoprolol Tartrate (Lopressor) 50 mg Q8 GTB Last administered on 07/20/18 14:01; Admin Dose 50 MG; Start 07/05/18 at 22:00 Citric Acid/ Sodium Citrate (Bicitra) 60 ml Q8 PO Last administered on 07/20/18 14:00; Admin Dose 60 ML; Start 07/09/18 at 14:00 Amikacin Sulfate (Amikacin Iv Per Pharmacy) 1 ea NOTE XX ; Start 07/09/18 at 17:30 Vancomycin HCl (Vancomycin Oral Syringe) 125 mg Q6 GTB Last administered on 07/20/18 12:25; Admin Dose 125 MG; Start 07/09/18 at 18:00 Epoetin Zen-epbx (Retacrit (Non-Esrd)) 10,000 unit MoWeFr@1700 SC Last administered on 07/17/18 17:38; Admin Dose 10,000 UNIT; Start 07/13/18 at 17:00 Cefepime HCl 50 ml @ 100 mls/hr Q24H IVPB Last administered on 07/19/18 18:56; Admin Dose 100 MLS/HR; Start 07/14/18 at 18:30 Amikacin Sulfate 300 mg/Dextrose 101.2 ml @ 102 mls/hr Q24H IVPB ; Start 07/21/18 at 23:00 GRISELDA DENNIS Jul 20, 2018 17:05
[2018-07-20] MEDS: CEFEPIME 2GM/50 ML (PMX) 50 ML IVPB SCH (18:10)
[2018-07-20] MEDS: EPOETIN ALFA-EPBX (NON-ESRD 10,000 UNIT/ML VIAL SC SCH (18:11)
[2018-07-21] VITALS (21 sets, daily range): BP systolic 116–153; BP diastolic 48–76; PULSE 61–76; RESP 19–22
[2018-07-21] MEDS: VANCOMYCIN HCL 250 MG/5ML POSYG GTB SCH ×4 (00:22→18:04)
[2018-07-21] MEDS: LORAZEPAM 2 MG INJ IV PRN ×2 (00:32→22:46)
[2018-07-21] MEDS: AMIODARONE 200 MG TAB GTB SCH ×3 (06:33→22:13)
[2018-07-21] MEDS: DICYCLOMINE 10 MG CAP PO SCH ×3 (06:33→22:14)
[2018-07-21] MEDS: METOPROLOL 50 MG TAB GTB SCH ×3 (06:33→22:13)
[2018-07-21] MEDS: CHOLESTYRAMINE (LIGHT) 4 GM PACKET GTB SCH ×4 (06:33→22:14)
[2018-07-21] MEDS: CITRIC ACID/NA CITRATE 30 ML CUP PO SCH ×3 (06:34→22:14)
--- NOTE | 2018-07-21 07:50 | CONS ---
Assessment/Plan Assessment/Plan Hospital Course (Demo Recall) 73 yo female 1. ABD pain -resolved 2. Renal failure -improved 3. Vent dependent resp failure 4. Chronic obstructive pulmonary disease. 5. Bipolar disorder 6. Paroxysmal atrial fibrillation. 7. Anemia of chronic disease. -stable 8. CHF 9. Diarrhea -s/p c diff colitis -taper off of vanco -resolved 10. H/O deep esophageal ulcer 11. Dysphagia with g tube PLAN: Continue present care Pt examined and plan of care discussed with Dr Carolina Consultation Date/Type/Reason Admit Date/Time May 06, 2018 at 17:38 Initial Consult Date 05/10/18 Requesting Provider: ROLAND GIRON MD Date/Time of Note DATE: 07/21/18 TIME: 07:49 24 HR Interval Summary Free Text/Dictation No changes. Exam/Review of Systems Exam Vitals Vital Signs Date Temp Pulse Resp B/P (MAP) Pulse Ox O2 O2 Flow FiO2 Time Delivery Rate 07/21/18 68 20 99 30 05:09 07/21/18 98.3 142/66 Trach 04:00 (91) Collar Intake and Output 07/20/18 07/20/18 07/21/18 1515:00 23:00 07:00 IntakeIntake Total 940 ml 680 ml OutputOutput Total 800 ml 650 ml BalanceBalance 140 ml 30 ml Constitutional: alert, oriented Psych: no complaints Head: normocephalic Eyes: PERRL Gastrointestinal: soft, tender (mild) Neurological: nl mental status Results Result Diagram: 07/20/18 0717 07/20/18 0717 Medications Medication Current Medications IV Flush (NS 10 ml) 10 ml PRN IV ; Start 05/06/18 at 20:30 Zinc Sulfate (Zinc Sulfate) 220 mg DAILY GTB Last administered on 07/20/18at 09:01; Admin Dose 220 MG; Start 05/07/18 at 09:00 Ondansetron HCl (Zofran Tab) 4 mg Q6H PRN GTB NAUSEA AND/OR VOMITING Last administered on 05/31/18at 16:47; Admin Dose 4 MG; Start 05/07/18 at 00:15 Multivitamins (Multivitamin) 30 ml DAILY GTB Last administered on 07/20/18at 09:01; Admin Dose 30 ML; Start 05/07/18 at 09:00 Miscellaneous Information (Pending Santyl Order For Wound Care) This patient goldman... PRN PRN XX WOUND CARE; Start 05/09/18 at 17:00 Famotidine (Pepcid) 20 mg DAILY PEG Last administered on 07/20/18 09:01; Admin Dose 20 MG; Start 05/23/18 at 09:00 Morphine Sulfate (morphine) 6 mg Q4H PRN PEG SEVERE PAIN LEVEL 7-10 Last administered on 07/20/18 05:12; Admin Dose 6 MG; Start 05/22/18 at 17:00 Acetaminophen (Tylenol Tab) 650 mg Q4H PRN PO MILD PAIN(1-3)OR ELEVATED TEMP Last administered on 07/16/18 00:42; Admin Dose 650 MG; Start 05/31/18 at 13:00 Collagenase (Santyl) 1 applic DAILY TOP Last administered on 07/20/18 09:01; Admin Dose 1 APPLIC; Start 06/01/18 at 09:00 Clonidine (Catapres) 0.1 mg Q6H PRN PO ELEVATED BLOOD PRESSURE Last administered on 07/09/18 09:08; Admin Dose 0.1 MG; Start 06/03/18 at 03:30 Bumetanide (Bumex) 1 mg BID DIURETICS GTB Last administered on 07/12/18 05:23; Admin Dose 1 MG; Start 06/11/18 at 18:00; Status Hold Miscellaneous Information 1 ea NOTE XX ; Start 06/26/18 at 08:00 Dicyclomine HCl (Bentyl) 20 mg Q8 PO Last administered on 07/21/18 06:33; Admin Dose 20 MG; Start 06/27/18 at 22:00 Cholestyramine Resin (Questran Light) 4 gm 0600,1200,1800,2300 GTB Last administered on 07/21/18 06:33; Admin Dose 4 GM; Start 06/27/18 at 18:00 Lorazepam (Ativan) 0.5 mg Q4 PRN IV ANXIETY Last administered on 07/21/18 00:32; Admin Dose 0.5 MG; Start 07/01/18 at 14:00 Amiodarone HCl (Cordarone) 200 mg Q8 GTB Last administered on 07/21/18 06:33; Admin Dose 200 MG; Start 07/05/18 at 22:00 Metoprolol Tartrate (Lopressor) 50 mg Q8 GTB Last administered on 07/21/18 06 :33; Admin Dose 50 MG; Start 07/05/18 at 22:00 Citric Acid/ Sodium Citrate (Bicitra) 60 ml Q8 PO Last administered on 07/21/18 06:34; Admin Dose 60 ML; Start 07/09/18 at 14:00 Amikacin Sulfate (Amikacin Iv Per Pharmacy) 1 ea NOTE XX ; Start 07/09/18 at 17:30 Vancomycin HCl (Vancomycin Oral Syringe) 125 mg Q6 GTB Last administered on 07/21/18 06:36; Admin Dose 125 MG; Start 07/09/18 at 18:00 Epoetin Zen-epbx (Retacrit (Non-Esrd)) 10,000 unit MoWeFr@1700 SC Last administered on 07/20/18at 18:11; Admin Dose 10,000 UNIT; Start 07/13/18 at 17:00 Cefepime HCl 50 ml @ 100 mls/hr Q24H IVPB Last administered on 07/20/18at 18:10; Admin Dose 100 MLS/HR; Start 07/14/18 at 18:30 Amikacin Sulfate 300 mg/Dextrose 101.2 ml @ 102 mls/hr Q24H IVPB ; Start 07/21/18 at 23:00 SHAHEEN GAMBOA Jul 21, 2018 07:50
[2018-07-21] MEDS: MULTIVITAMINS 30 ML CUP GTB SCH (09:00)
[2018-07-21] MEDS: ZINC SULFATE 220 MG CAP GTB SCH (09:18)
[2018-07-21] MEDS: FAMOTIDINE 20 MG TAB PEG SCH (09:20)
[2018-07-21] MEDS: COLLAGENASE 5 GM (UD JAR) TOP SCH (09:21)
[2018-07-21] MEDS: BALSAM PERU/CASTOR OIL 60 GM TUBE TOP SCH ×2 (09:21→21:18)
--- NOTE | 2018-07-21 09:37 | PN ---
DATE: 07/21/2018 SUBJECTIVE: The patient is stable. No events overnight. OBJECTIVE: VITAL SIGNS: Blood pressure is 128/67, pulse 61,respirations 20, temperature 98.3. HEENT: Head is normocephalic. NECK: Supple. HEART: Regular rate. LUNGS: Show diminished breath sounds at the base. ABDOMEN: Soft, nontender to palpation without rebound or guarding. EXTREMITIES: Negative for clubbing, cyanosis. Positive edema. DERMATOLOGIC: No rashes. MUSCULOSKELETAL: No joint effusion. NEUROLOGIC: No change in exam. MEDICATIONS: Has been reviewed. LABORATORY DATA: Has been reviewed. ASSESSMENT AND PLAN: 1. Nonoliguric acute kidney injury with previous baseline creatinine of 2.0 mg/dL. Etiology of acut e kidney injury is secondary to acute tubular necrosis. The patient is status post hemodialysis for 2 weeks. The patient showed adequate renal recovery. A Juan catheter was removed. The patient h ad a recurrent episode of acute kidney injury, likely due to sepsis. Renal function slowly improving . Continue current treatment plans, supportive care, renally dose all meds. 2. Hypernatremia, improved. Continue free water flushes. 3. Hypokalemia. Continue to monitor and replete. 4. Hypomagnesemia. Continue to monitor. 5. Metabolic acidosis, improved. Continue Bicitra. 6. Volume overload. Continue intermittent diuretic therapy. We will resume Bumex 1 mg daily. 7. Anemia. Continue to monitor hemoglobin and hematocrit levels. Will give Epogen as needed. 8. Ventilator dependent respiratory failure. Vent settings have been reviewed. Continue to monitor . 9. Sepsis. The patient is completing antibiotic course. 10. Dysphagia. Continue tube feeding. 11. Lower extremity wounds. Continue wound care. Dictated By: JEANA BANSAL DO NR/NTS Conf#: [id number] DID#: [id number] CC: ROLAND GIRON MD;*End*
--- NOTE | 2018-07-21 11:11 | CONS ---
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 Continue beta-tin as tolerated -Patient with paroxysmal atrial fibrillation, currently in sinus rhythm -Continue amiodarone as tolerated -Vent management as per pulmonary -Fluid management and electrolytes as per renal -No anticoagulation given recurrent anemia requiring blood transfusions Consultation Date/Type/Reason Admit Date/Time May 06, 2018 at 17:38 Initial Consult Date 05/10/18 Type of Consult Cardiology Requesting Provider: ROLAND GIRON MD Date/Time of Note DATE: 07/21/18 TIME: 11:10 24 HR Interval Summary Free Text/Dictation Patient seen and examined Exam/Review of Systems Vital Signs Vitals Vital Signs Date Temp Pulse Resp B/P (MAP) Pulse Ox O2 O2 Flow FiO2 Time Delivery Rate 07/21/18 63 20 98 30 11:04 07/21/18 98.3 128/67 Trach 08:01 (87) Collar Intake and Output 07/20/18 07/20/18 07/21/18 1515:00 23:00 07:00 IntakeIntake Total 940 ml 680 ml OutputOutput Total 800 ml 650 ml BalanceBalance 140 ml 30 ml Exam Constitutional: alert (No apparent distress) Head: normocephalic Respiratory: other (Coarse breath sounds bilaterally, no wheezing) Cardiovascular: regular rate and rhythm (S1-S2 heard) Gastrointestinal: soft, non-tender, bowel sounds Extremities: edema Labs Result Diagram: 07/20/1817 07/20/18 0717 Medications Medications Current Medications IV Flush (NS 10 ml) 10 ml PRN IV ; Start 05/06/18 at 20:30 Zinc Sulfate (Zinc Sulfate) 220 mg DAILY GTB Last administered on 07/21/18at 09:18; Admin Dose 220 MG; Start 05/07/18 at 09:00 Ondansetron HCl (Zofran Tab) 4 mg Q6H PRN GTB NAUSEA AND/OR VOMITING Last administered on 05/31/18at 16:47; Admin Dose 4 MG; Start 05/07/18 at 00:15 Multivitamins (Multivitamin) 30 ml DAILY GTB Last administered on 07/20/18 09:01; Admin Dose 30 ML; Start 05/07/18 at 09:00 Miscellaneous Information (Pending Santyl Order For Wound Care) This patient goldman... PRN PRN XX WOUND CARE; Start 05/09/18 at 17:00 Famotidine (Pepcid) 20 mg DAILY PEG Last administered on 07/21/18 09:20; Admin Dose 20 MG; Start 05/23/18 at 09:00 Morphine Sulfate (morphine) 6 mg Q4H PRN PEG SEVERE PAIN LEVEL 7-10 Last administered on 07/20/18 05:12; Admin Dose 6 MG; Start 05/22/18 at 17:00 Acetaminophen (Tylenol Tab) 650 mg Q4H PRN PO MILD PAIN(1-3)OR ELEVATED TEMP Last administered on 07/16/18 00:42; Admin Dose 650 MG; Start 05/31/18 at 13:00 Collagenase (Santyl) 1 applic DAILY TOP Last administered on 07/21/18 09:21; Admin Dose 1 APPLIC; Start 06/01/18 at 09:00 Clonidine (Catapres) 0.1 mg Q6H PRN PO ELEVATED BLOOD PRESSURE Last administered on 07/09/18 09:08; Admin Dose 0.1 MG; Start 06/03/18 at 03:30 Bumetanide (Bumex) 1 mg BID DIURETICS GTB Last administered on 07/12/18 05:23; Admin Dose 1 MG; Start 06/11/18 at 18:00 Miscellaneous Information 1 ea NOTE XX ; Start 06/26/18 at 08:00 Dicyclomine HCl (Bentyl) 20 mg Q8 PO Last administered on 07/21/18 06:33; Admin Dose 20 MG; Start 06/27/18 at 22:00 Cholestyramine Resin (Questran Light) 4 gm 0600,1200,1800,2300 GTB Last administered on 07/21/18 06:33; Admin Dose 4 GM; Start 06/27/18 at 18:00 Lorazepam (Ativan) 0.5 mg Q4 PRN IV ANXIETY Last administered on 07/21/18 00:32; Admin Dose 0.5 MG; Start 07/01/18 at 14:00 Amiodarone HCl (Cordarone) 200 mg Q8 GTB Last administered on 07/21/18 06:33; Admin Dose 200 MG; Start 07/05/18 at 22:00 Metoprolol Tartrate (Lopressor) 50 mg Q8 GTB Last administered on 07/21/18 06:33; Admin Dose 50 MG; Start 07/05/18 at 22:00 Citric Acid/ Sodium Citrate (Bicitra) 60 ml Q8 PO Last administered on 07/21/18 06:34; Admin Dose 60 ML; Start 07/09/18 at 14:00 Amikacin Sulfate (Amikacin Iv Per Pharmacy) 1 ea NOTE XX ; Start 07/09/18 at 17:30 Vancomycin HCl (Vancomycin Oral Syringe) 125 mg Q6 GTB Last administered on 07/21/18 06:36; Admin Dose 125 MG; Start 07/09/18 at 18:00 Epoetin Zen-epbx (Retacrit (Non-Esrd)) 10,000 unit MoWeFr@1700 SC Last administered on 07/20/18 18:11; Admin Dose 10,000 UNIT; Start 07/13/18 at 17:00 Cefepime HCl 50 ml @ 100 mls/hr Q24H IVPB Last administered on 07/20/18 18:10; Admin Dose 100 MLS/HR; Start 07/14/18 at 18:30 Amikacin Sulfate 300 mg/Dextrose 101.2 ml @ 102 mls/hr Q24H IVPB ; Start 07/21/18 at 23:00 Evangelista Scanlon DO Jul 21, 2018 11:11
--- NOTE | 2018-07-21 15:12 | CONS ---
Assessment/Plan Assessment/Plan Hospital Course (Demo Recall) # sepsis, leukocytosis, SIRS, pulmonary, cardiac - recurrent leukocytosis due to bacteremia (below), improved - s/p septic shock due to pneumonia and C diff colitis - acute on chronic hypoxic respiratory failure, persistent - s/p reintubation 05/12/2018 - s/p re-do trach on 05/29/2018 - recurrent colonization of the anterior neck wound with ESBL+kleb, MRSA, GBS, corynebacteria on 05/06/2018 - h/o pneumonia vs. colonization of the airway by pseudomonas and ESBL+klebsiella - h/o possible, recurrent HCAP due to pseudomonas and ESBL+klebsiella - h/o recurrent HCAP due to MRSA and Enterobacter (culture of tracheal aspirate on 07/16/2017 that was collected at [facility]) . Pt took vancomycin and ceftazidime - h/o decannulation prior to admission - h/o tracheostomy on 06/11/2017 - h/o SIRS from UGIB in 2018 - h/o thoracentesis on 07/18/2017, transudative (protein <2, LDH 279) - h/o bleeding from the trach site in 2018 - h/o septic shock due to pneumonia, ARDS, bacteremia, fungemia in 2018 - h/o ARDS in 2018 - h/o smoking - COPD - h/o ILD per medical record - h/o PAF, improved # GI - s/p possible ileus or enterocolitis on CT abd/pel 06/15/2018-->follow up CT on 07/15/2018 showed no evidence of urolithiasis, obstructive uropathy or diverticulitis; it showed small to moderate ascites - C diff colitis, diagnosed on 05/11/2018. Pt is on pGT vancomycin (05/11/2018-); Pt previously took IV metronidazole (05/11/2018-05/29/2018; restart 05/30/2018- 06/05/18) too - Pt had multiple negative C. diff tests at [facility] and at [facility]SH in the past; none was positive until 05/11/2018 - dysphagia - h/o PEG placement 06/13/2018 - protein calorie malnutrition - h/o coffee ground emesis/UGIB on 12/23/2017 due to deep ulceration of distal esophagus and gastritis on EGD 12/26/2017. No e/o H. pylori - h/o possible appendicitis on CT on 11/22/2017, Pt took ertapenem (11/24/2017- 12/01/2017) - h/o extensive adhesions lower abdominal and pelvis between small bowel to each other and to colon and to abdominal wall, anterior pelvic wall chronic abscess secondary to probably an old perforated diverticulitis, torsion of small bowel around these dense adhesion causing multiple obstructive points - h/o laparoscopic exploration and extensive lysis of adhesions and drainage of anterior pelvic wall abscess 09/16/2017. Cultures were negative, no e/o malignancy. Pt took pip/tazo (09/16/2017-09/26/2017) - h/o EGD and exchange of PEG on 09/01/2017 - h/o partial obstruction mid jejunum in L anterior central pelvis with suggestion of a 3 cm soft tissue mass on CT 08/28/2017 - h/o internal stomal deep ulcer behind the internal bumper, gastritis and esophagitis, Rodriguez's cannot be ruled out, per EGD with biopsy 07/23/2017 - h/o GIB s/p flex sig showed polyp; stool OB negative on 06/29/17 - h/o stool OB positive status - h/o SBO and ileus due to pain meds - h/o mildly elevated CEA # renal/ - s/p recurrent UTI due to pseudomonas (culture on 07/09/2018)-->Garza catheter was replaced on 07/14/2018 - s/p UTI due to MDR, CRE-klebsiella on 06/15/2018. S/p renally dosed amikacin for klebsiella in her urine culture (06/17-06/22/2018) - s/p UTI due to pseudomonas and ESBL+klebsiella on 06/09/2018, Pt took one dose of fosfomycin on 06/10/2018 and cipro 06/12-06/15/2018 - anasarca - started on HD on 05/15/2018, via Juan in R groin - recurrent NATHAN on CKD - 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 Her strain of CRE was sensitive to colistin, Avycaz, and Vabomere but resistant to Zerbaxa (reported on 05/19/2018) - metabolic acidosis - adrenal insufficiency - h/o vaginal bleed in 2018 - h/o colonization of urinary tract by ESBL+klebsiella, VRE - h/o recurrent, symptomatic UTI due to carbapenem-resistant kleb (MDR strain) per urine culture 10/04/17, 10/09/17, 10/21/2017, P took colistin (10/09/2017- 10/15/2017), fosfomycin for carbapenemase-producing klebsiella and VRE on 10/25/2017 and 10/28/2017 - h/o funguria - h/o urinary retention # bloodstream infections - Bacteremia d/t pseudomonas aeruginosa 07/09/18, 07/10/18, 07/11/18, 07/12/18, 07/13/18, 07/15/18, 07/17/18. This is associated with PICC because the blood culture from PICC and phlebotomy on 07/13/2018 both grew the same bacteria. 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; Pt declined surgery for MVR per outside medical records; TTE 07/01/17 did not mentio n any thrombus; s/p voriconazole (05/25/2017-08/01/2017) - h/o bacteremia due to MSSA and proteus s/p ceftriaxone; repeat blood cultures were negative on 06/14/2017 # musculoskeletal and dermatological - dry skin - chronic wound of LLE - h/o infection of wound of LLE - h/o debridement of wound of LLE on 08/06/2017 - h/o recurrent herpes labialis, Pt took acyclovir, valacyclovir - h/o Osler's nodes (eschar) of R toes with erythematous skin; desquamation of the skin and open lacerations on R plantar foot. improved. Probable manifestation of endocarditis. Pt declined MRI on 08/06/2017 - h/o infection of R toes due to pseudomonas. coagulase negative Staph likely a colonizer - h/o intertrigo of the groin, resolved with nystatin powder - h/o scabies, locally crusted lesion over L scapula, s/p permethrin cream and pGT ivermectin on 08/11/2017, 08/12/2017, 08/19/2017. Repeat skin scraping on 08/21/2017 was negative for scabies # psych, neuro - chronic toxic metabolic encephalopathy, progressing - decreased hearing b/l - h/o critical illness polyneuropathy - anxiety/depression, bipolar d/o, seen by Psychiatry in the past - chronic pain syndrome - h/o medical non-compliance: she would refuse her medications, treatment and straight catheterization in 2018 # hematological, vascular - chronic anemia requiring blood transfusion intermittently - macrocytic anemia - aneurysmal dilatation of the distal aorta visualized on CT 06/15/2018 - PVD recommendations: - pending results: repeat blood cultures from 07/18/2018 (negative so far) - will require a prolonged course of abx given echo c/w possible vegetation - continue amikacin IV (07/09/2018-). Pt had a strain of pseudomonas that was resistant to all except for aminoglycoside - continue renally dosed cefepime (07/14/2018-); Pt needs double coverage because amikacin alone has not cleared her bacteremia. Some strains of pseudomonas she had were pansensitive while other strains of pseudomonas were resistant to many antibiotics (MDR) - continue vancomycin pGT (07/09/18/ - ) because Pt continues to have multiple BMs as a result of taking anti-pseudomonal antibiotics. Pt completed IV metronidazole (07/09/18-07/15/18) - we recommend neuro consult as Pt has progressive chronic toxic metabolic encephalopathy - consider goals of continued aggressive care; overall prognosis appears especially poor especially in light of recent echo findings. Consultation Date/Type/Reason Admit Date/Time May 06, 2018 at 17:38 Initial Consult Date 05/10/18 Type of Consult ID Requesting Provider: ROLAND GIRON MD Date/Time of Note DATE: 07/21/18 TIME: 15:11 Exam/Review of Systems Exam Vitals Vital Signs Date Temp Pulse Resp B/P (MAP) Pulse Ox O2 O2 Flow FiO2 Time Delivery Rate 07/21/18 68 20 99 30 13:34 07/21/18 98.1 128/67 Trach 11:59 (87) Collar Intake and Output 07/20/18 07/20/18 07/21/18 1515:00 23:00 07:00 IntakeIntake Total 940 ml 680 ml OutputOutput Total 800 ml 650 ml BalanceBalance 140 ml 30 ml Results Result Diagram: 07/20/1817 07/20/18 0717 Medications Medication Current Medications IV Flush (NS 10 ml) 10 ml PRN IV ; Start 05/06/18 at 20:30 Zinc Sulfate (Zinc Sulfate) 220 mg DAILY GTB Last administered on 07/21/18 09:18; Admin Dose 220 MG; Start 05/07/18 at 09:00 Ondansetron HCl (Zofran Tab) 4 mg Q6H PRN GTB NAUSEA AND/OR VOMITING Last administered on 05/31/18 16:47; Admin Dose 4 MG; Start 05/07/18 at 00:15 Multivitamins (Multivitamin) 30 ml DAILY GTB Last administered on 07/20/18 09:01; Admin Dose 30 ML; Start 05/07/18 at 09:00 Miscellaneous Information (Pending Santyl Order For Wound Care) This patient goldman... PRN PRN XX WOUND CARE; Start 05/09/18 at 17:00 Famotidine (Pepcid) 20 mg DAILY PEG Last administered on 07/21/18 09:20; Admin Dose 20 MG; Start 05/23/18 at 09:00 Morphine Sulfate (morphine) 6 mg Q4H PRN PEG SEVERE PAIN LEVEL 7-10 Last administered on 07/20/18 05:12; Admin Dose 6 MG; Start 05/22/18 at 17:00 Acetaminophen (Tylenol Tab) 650 mg Q4H PRN PO MILD PAIN(1-3)OR ELEVATED TEMP Last administered on 07/16/18 00:42; Admin Dose 650 MG; Start 05/31/18 at 13:00 Collagenase (Santyl) 1 applic DAILY TOP Last administered on 07/21/18 09:21; Admin Dose 1 APPLIC; Start 06/01/18 at 09:00 Clonidine (Catapres) 0.1 mg Q6H PRN PO ELEVATED BLOOD PRESSURE Last administered on 07/09/18 09:08; Admin Dose 0.1 MG; Start 06/03/18 at 03:30 Bumetanide (Bumex) 1 mg BID DIURETICS GTB Last administered on 07/12/18 05:23; Admin Dose 1 MG; Start 06/11/18 at 18:00 Miscellaneous Information 1 ea NOTE XX ; Start 06/26/18 at 08:00 Dicyclomine HCl (Bentyl) 20 mg Q8 PO Last administered on 07/21/18 14:40; Admin Dose 20 MG; Start 06/27/18 at 22:00 Cholestyramine Resin (Questran Light) 4 gm 0600,1200,1800,2300 GTB Last administered on 07/21/18 12:31; Admin Dose 4 GM; Start 06/27/18 at 18:00 Lorazepam (Ativan) 0.5 mg Q4 PRN IV ANXIETY Last administered on 07/21/18 00:32; Admin Dose 0.5 MG; Start 07/01/18 at 14:00 Amiodarone HCl (Cordarone) 200 mg Q8 GTB Last administered on 07/21/18 14:41; Admin Dose 200 MG; Start 07/05/18 at 22:00 Metoprolol Tartrate (Lopressor) 50 mg Q8 GTB Last administered on 07/21/18 14:41; Admin Dose 50 MG; Start 07/05/18 at 22:00 Citric Acid/ Sodium Citrate (Bicitra) 60 ml Q8 PO Last administered on 07/21/18 14:40; Admin Dose 60 ML; Start 07/09/18 at 14:00 Amikacin Sulfate (Amikacin Iv Per Pharmacy) 1 ea NOTE XX ; Start 07/09/18 at 17:30 Vancomycin HCl (Vancomycin Oral Syringe) 125 mg Q6 GTB Last administered on 07/21/18 12:31; Admin Dose 125 MG; Start 07/09/18 at 18:00 Epoetin Zen-epbx (Retacrit (Non-Esrd)) 10,000 unit MoWeFr@1700 SC Last administered on 07/20/18 18:11; Admin Dose 10,000 UNIT; Start 07/13/18 at 17:00 Cefepime HCl 50 ml @ 100 mls/hr Q24H IVPB Last administered on 07/20/18 18:10; Admin Dose 100 MLS/HR; Start 07/14/18 at 18:30 Amikacin Sulfate 300 mg/Dextrose 101.2 ml @ 102 mls/hr Q24H IVPB ; Start 07/21/18 at 23:00 MANN VALDEZ MD Jul 21, 2018 15:12
[2018-07-21] MEDS: CEFEPIME 2GM/50 ML (PMX) 50 ML IVPB SCH (18:04)
[2018-07-21] MEDS: BUMETANIDE 1 MG TAB GTB SCH (18:08)
--- NOTE | 2018-07-21 19:10 | PN ---
Date/Time of Note Date/Time of Note DATE: 07/21/18 TIME: 19:10 Assessment/Plan VTE Prophylaxis [place] [facility] [place] risk: 8 SCD applied [place] [facility] [place] Yes Pharmacological prophylaxis: NA/contraindicated Pharm contraindication: anticoag not tolerated Lines/Catheters IV Catheter Type (from [facility]): Saline Lock Urinary Cath still in place: Yes Reason Cath still needed: urinary retention Assessment/Plan Hospital Course Pt continues on Cefepime and Amikacin for bacteremia. Stable VS. Assessment/Plan -Persistent leukocytosis with Pseudomonas bacteremia 2 to PICC line infection, continue antibiotics per ID. Dr. Walton is following in infection disease consultation. 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 TTE 07/16/18 with notion of echodense structure on the mitral valve, calcification vs vegetation. Dr. Scanlon is following in cardiology consultation. -MDR Klebsiella urinary tract infection, completed treatment with amikacin. -Atrial fibrillation was rapid ventricular response, patient remains in sinus rhythm continue metoprolol and amiodarone. -S/p septic shock secondary to urinary tract infection, anterior neck soft tissue infection, and C. difficile colitis. -C-diff colitis,resolved. -Acute respiratory failure requiring intubation and ventilatory support. Dr. Lambert is following in pulmonology consultation. -S/p tracheostomy on 05/29/18. -Acute kidney injury on chronic kidney disease. Started on HD this admission with recovery of renal function. Dr. Mckeon is following in nephrology consultation. -Anemia of chronic inflammation, stool for OB is negative, status post blood t ransfusion. Continue Epogen. -Metabolic acidosis, resolved. -Acute diastolic congestive heart failure. -Paroxysmal atrial fibrillation -COPD -Dysphagia with PEG. -G-tube mild malfunction, changed by GI Dr. Carolina is following in gastroenterology consultation. -Obesity -Critical care myopathy Further recommendations based on clinical course. Plan of care discussed with Dr. Eisenberg. Result Diagram: 07/20/18 0717 07/20/18 0717 Exam/Review of Systems Exam Vitals Vital Signs Date Temp Pulse Resp B/P (MAP) Pulse Ox O2 O2 Flow FiO2 Time Delivery Rate 07/21/18 66 16:40 07/21/18 98.1 20 116/48 100 Trach 15:46 (70) Collar 07/21/18 30 15:19 Intake and Output 07/20/18 07/20/18 07/21/18 1515:00 23:00 07:00 IntakeIntake Total 940 ml 680 ml OutputOutput Total 800 ml 650 ml BalanceBalance 140 ml 30 ml Exam Constitutional: alert, oriented Neck: other (Tracheostomy) Respiratory: diminished breath sounds Cardiovascular: regular rate and rhythm Gastrointestinal: soft, non-tender, other (G-tube) Extremities: normal pulses Neurological: nl mental status Medications Medication Current Medications IV Flush (NS 10 ml) 10 ml PRN IV ; Start 05/06/18 at 20:30 Zinc Sulfate (Zinc Sulfate) 220 mg DAILY GTB Last administered on 07/21/18 09:18; Admin Dose 220 MG; Start 05/07/18 at 09:00 Ondansetron HCl (Zofran Tab) 4 mg Q6H PRN GTB NAUSEA AND/OR VOMITING Last administered on 05/31/18 16:47; Admin Dose 4 MG; Start 05/07/18 at 00:15 Multivitamins (Multivitamin) 30 ml DAILY GTB Last administered on 07/20/18 09:01; Admin Dose 30 ML; Start 05/07/18 at 09:00 Miscellaneous Information (Pending Santyl Order For Wound Care) This patient goldman... PRN PRN XX WOUND CARE; Start 05/09/18 at 17:00 Famotidine (Pepcid) 20 mg DAILY PEG Last administered on 07/21/18 09:20; Admin Dose 20 MG; Start 05/23/18 at 09:00 Morphine Sulfate (morphine) 6 mg Q4H PRN PEG SEVERE PAIN LEVEL 7-10 Last a dministered on 07/20/18 05:12; Admin Dose 6 MG; Start 05/22/18 at 17:00 Acetaminophen (Tylenol Tab) 650 mg Q4H PRN PO MILD PAIN(1-3)OR ELEVATED TEMP Last administered on 07/16/18 00:42; Admin Dose 650 MG; Start 05/31/18 at 13:00 Collagenase (Santyl) 1 applic DAILY TOP Last administered on 07/21/18 09:21; Admin Dose 1 APPLIC; Start 06/01/18 at 09:00 Clonidine (Catapres) 0.1 mg Q6H PRN PO ELEVATED BLOOD PRESSURE Last administered on 07/09/18 09:08; Admin Dose 0.1 MG; Start 06/03/18 at 03:30 Bumetanide (Bumex) 1 mg BID DIURETICS GTB Last administered on 07/21/18 18:08; Admin Dose 1 MG; Start 06/11/18 at 18:00 Miscellaneous Information 1 ea NOTE XX ; Start 06/26/18 at 08:00 Dicyclomine HCl (Bentyl) 20 mg Q8 PO Last administered on 07/21/18 14:40; Admin Dose 20 MG; Start 06/27/18 at 22:00 Cholestyramine Resin (Questran Light) 4 gm 0600,1200,1800,2300 GTB Last administered on 07/21/18 18:04; Admin Dose 4 GM; Start 06/27/18 at 18:00 Lorazepam (Ativan) 0.5 mg Q4 PRN IV ANXIETY Last administered on 07/21/18 00:32; Admin Dose 0.5 MG; Start 07/01/18 at 14:00 Amiodarone HCl (Cordarone) 200 mg Q8 GTB Last administered on 07/21/18 14:41; Admin Dose 200 MG; Start 07/05/18 at 22:00 Metoprolol Tartrate (Lopressor) 50 mg Q8 GTB Last administered on 07/21/18 14:41; Admin Dose 50 MG; Start 07/05/18 at 22:00 Citric Acid/ Sodium Citrate (Bicitra) 60 ml Q8 PO Last administered on 07/21/18 14:40; Admin Dose 60 ML; Start 07/09/18 at 14:00 Amikacin Sulfate (Amikacin Iv Per Pharmacy) 1 ea NOTE XX ; Start 07/09/18 at 17:30 Vancomycin HCl (Vancomycin Oral Syringe) 125 mg Q6 GTB Last administered on 07/21/18 18:04; Admin Dose 125 MG; Start 07/09/18 at 18:00 Epoetin Zen-epbx (Retacrit (Non-Esrd)) 10,000 unit MoWeFr@1700 SC Last administered on 07/20/18 18:11; Admin Dose 10,000 UNIT; Start 07/13/18 at 17:00 Cefepime HCl 50 ml @ 100 mls/hr Q24H IVPB Last administered on 07/21/18at 18:04; Admin Dose 100 MLS/HR; Start 07/14/18 at 18:30 Amikacin Sulfate 300 mg/Dextrose 101.2 ml @ 102 mls/hr Q24H IVPB ; Start 07/21/18 at 23:00 GRISELDA DENNIS Jul 21, 2018 19:10
[2018-07-21] MEDS ORDERED: ALBUTEROL/IPRATROPIUM (NEB) 3 ML AMP HHN PRN (22:00)
[2018-07-21] MEDS ORDERED: AMIKACIN 300 MG in DEXTROSE 5% 100 ML IVPB SCH (23:00)
[2018-07-22] VITALS (19 sets, daily range): BP systolic 101–143; BP diastolic 43–98; PULSE 61–85; RESP 16–21
[2018-07-22] MEDS: VANCOMYCIN HCL 250 MG/5ML POSYG GTB SCH ×5 (00:11→23:39)
[2018-07-22] MEDS: BUMETANIDE 1 MG TAB GTB SCH ×2 (05:41→17:44)
[2018-07-22] MEDS: AMIODARONE 200 MG TAB GTB SCH ×2 (05:42→21:33)
[2018-07-22] MEDS: DICYCLOMINE 10 MG CAP PO SCH ×3 (05:43→21:33)
[2018-07-22] MEDS: METOPROLOL 50 MG TAB GTB SCH ×3 (05:43→21:33)
[2018-07-22] MEDS: CITRIC ACID/NA CITRATE 30 ML CUP PO SCH ×3 (05:43→21:32)
[2018-07-22] MEDS: CHOLESTYRAMINE (LIGHT) 4 GM PACKET GTB SCH ×4 (06:13→23:39)
[2018-07-22] MEDS: COLLAGENASE 5 GM (UD JAR) TOP SCH (09:27)
[2018-07-22] MEDS: MULTIVITAMINS 30 ML CUP GTB SCH (09:27)
[2018-07-22] MEDS: ZINC SULFATE 220 MG CAP GTB SCH (09:28)
[2018-07-22] MEDS: FAMOTIDINE 20 MG TAB PEG SCH (09:28)
[2018-07-22] MEDS: BALSAM PERU/CASTOR OIL 60 GM TUBE TOP SCH ×2 (09:43→21:34)
--- NOTE | 2018-07-22 11:33 | CONS ---
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 Continue beta-tin as tolerated -Patient with paroxysmal atrial fibrillation, currently in sinus rhythm -Continue amiodarone and decrease to twice daily -Vent management as per pulmonary -Fluid management and electrolytes as per renal -No anticoagulation given recurrent anemia requiring blood transfusions Consultation Date/Type/Reason Admit Date/Time May 06, 2018 at 17:38 Initial Consult Date 05/10/18 Type of Consult Cardiology Requesting Provider: ROLAND GIRON MD Date/Time of Note DATE: 07/22/18 TIME: 11:31 24 HR Interval Summary Free Text/Dictation Patient seen and examined Exam/Review of Systems Vital Signs Vitals Vital Signs Date Temp Pulse Resp B/P (MAP) Pulse Ox O2 O2 Flow FiO2 Time Delivery Rate 07/22/18 30 09:20 07/22/18 66 08:44 07/22/18 98.0 18 117/61 100 07:52 (79) 07/22/18 Trach 00:00 Collar Intake and Output 07/21/18 07/21/18 07/22/18 1515:00 23:00 07:00 IntakeIntake Total 810 ml OutputOutput Total 600 ml BalanceBalance 210 ml Exam Exam Sleeping but arousable, not answering questions, no apparent distress Head: normocephalic Neck: other (Tracheostomy) Respiratory: other (Coarse breath sounds bilaterally, no wheezing) Cardiovascular: regular rate and rhythm (S1-S2 heard), systolic murmur Gastrointestinal: soft, non-tender, bowel sounds Extremities: edema Labs Result Diagram: 07/20/18 0717 07/22/18 0643 Results 24hrs Laboratory Tests Test 07/22/18 06:43 Sodium Level 139 Potassium Level 3.2 L Chloride Level 98 Carbon Dioxide Level 28 Anion Gap 13 Blood Urea Nitrogen 100 H Creatinine 2.30 H Est Glomerular Filtrat Rate mL/min Glucose Level 103 Calcium Level 9.4 Phosphorus Level 3.8 Magnesium Level 1.7 Medications Medications Current Medications IV Flush (NS 10 ml) 10 ml PRN IV ; Start 05/06/18 at 20:30 Zinc Sulfate (Zinc Sulfate) 220 mg DAILY GTB Last administered on 07/22/18 09:28; Admin Dose 220 MG; Start 05/07/18 at 09:00 Ondansetron HCl (Zofran Tab) 4 mg Q6H PRN GTB NAUSEA AND/OR VOMITING Last administered on 05/31/18 16:47; Admin Dose 4 MG; Start 05/07/18 at 00:15 Multivitamins (Multivitamin) 30 ml DAILY GTB Last administered on 07/22/18 09:27; Admin Dose 30 ML; Start 05/07/18 at 09:00 Miscellaneous Information (Pending Santyl Order For Wound Care) This patient goldman... PRN PRN XX WOUND CARE; Start 05/09/18 at 17:00 Famotidine (Pepcid) 20 mg DAILY PEG Last administered on 07/22/18 09:28; Admin Dose 20 MG; Start 05/23/18 at 09:00 Morphine Sulfate (morphine) 6 mg Q4H PRN PEG SEVERE PAIN LEVEL 7-10 Last admin istered on 07/20/18 05:12; Admin Dose 6 MG; Start 05/22/18 at 17:00 Acetaminophen (Tylenol Tab) 650 mg Q4H PRN PO MILD PAIN(1-3)OR ELEVATED TEMP Last administered on 07/16/18 00:42; Admin Dose 650 MG; Start 05/31/18 at 13:00 Collagenase (Santyl) 1 applic DAILY TOP Last administered on 07/22/18 09:27; Admin Dose 1 APPLIC; Start 06/01/18 at 09:00 Clonidine (Catapres) 0.1 mg Q6H PRN PO ELEVATED BLOOD PRESSURE Last administered on 07/09/18 09:08; Admin Dose 0.1 MG; Start 06/03/18 at 03:30 Bumetanide (Bumex) 1 mg BID DIURETICS GTB Last administered on 07/22/18 05:41; Admin Dose 1 MG; Start 06/11/18 at 18:00 Miscellaneous Information 1 ea NOTE XX ; Start 06/26/18 at 08:00 Dicyclomine HCl (Bentyl) 20 mg Q8 PO Last administered on 07/22/18 05:43; Admin Dose 20 MG; Start 06/27/18 at 22:00 Cholestyramine Resin (Questran Light) 4 gm 0600,1200,1800,2300 GTB Last administered on 07/22/18 06:13; Admin Dose 4 GM; Start 06/27/18 at 18:00 Lorazepam (Ativan) 0.5 mg Q4 PRN IV ANXIETY Last administered on 07/21/18 22:46; Admin Dose 0.5 MG; Start 07/01/18 at 14:00 Amiodarone HCl (Cordarone) 200 mg Q8 GTB Last administered on 07/22/18 05:42; Admin Dose 200 MG; Start 07/05/18 at 22:00 Metoprolol Tartrate (Lopressor) 50 mg Q8 GTB Last administered on 07/22/18 05:43; Admin Dose 50 MG; Start 07/05/18 at 22:00 Citric Acid/ Sodium Citrate (Bicitra) 60 ml Q8 PO Last administered on 07/22/18 05:43; Admin Dose 60 ML; Start 07/09/18 at 14:00 Amikacin Sulfate (Amikacin Iv Per Pharmacy) 1 ea NOTE XX ; Start 07/09/18 at 17:30 Vancomycin HCl (Vancomycin Oral Syringe) 125 mg Q6 GTB Last administered on 07/22/18 05:43; Admin Dose 125 MG; Start 07/09/18 at 18:00 Epoetin Zen-epbx (Retacrit (Non-Esrd)) 10,000 unit MoWeFr@1700 SC Last administered on 07/20/18 18:11; Admin Dose 10,000 UNIT; Start 07/13/18 at 17:00 Cefepime HCl 50 ml @ 100 mls/hr Q24H IVPB Last administered on 07/21/18 18:04; Admin Dose 100 MLS/HR; Start 07/14/18 at 18:30 Amikacin Sulfate 300 mg/Dextrose 101.2 ml @ 102 mls/hr Q24H IVPB Last administered on 07/21/18 22:46; Admin Dose 102 MLS/HR; Start 07/21/18 at 23:00 Albuterol/ Ipratropium (Duoneb) 3 ml Q2H RESP THERAPY PRN HHN WHEEZING Last administered on 6/4/19at 23:06; Admin Dose 3 ML; Start 07/21/18 at 22:00 Evangelista Scanlon DO Jul 22, 2018 11:33
--- NOTE | 2018-07-22 11:39 | CONS ---
Assessment/Plan Assessment/Plan Hospital Course (Demo Recall) # sepsis, leukocytosis, SIRS, pulmonary, cardiac - recurrent leukocytosis due to bacteremia (below), improved - s/p septic shock due to pneumonia and C diff colitis - acute on chronic hypoxic respiratory failure, persistent - s/p reintubation 05/12/2018 - s/p re-do trach on 05/29/2018 - recurrent colonization of the anterior neck wound with ESBL+kleb, MRSA, GBS, corynebacteria on 05/06/2018 - h/o pneumonia vs. colonization of the airway by pseudomonas and ESBL+klebsiella - h/o possible, recurrent HCAP due to pseudomonas and ESBL+klebsiella - h/o recurrent HCAP due to MRSA and Enterobacter (culture of tracheal aspirate on 07/16/2017 that was collected at [facility]) . Pt took vancomycin and ceftazidime - h/o decannulation prior to admission - h/o tracheostomy on 06/11/2017 - h/o SIRS from UGIB in 2018 - h/o thoracentesis on 07/18/2017, transudative (protein <2, LDH 279) - h/o bleeding from the trach site in 2018 - h/o septic shock due to pneumonia, ARDS, bacteremia, fungemia in 2018 - h/o ARDS in 2018 - h/o smoking - COPD - h/o ILD per medical record - h/o PAF, improved # GI - s/p possible ileus or enterocolitis on CT abd/pel 06/15/2018-->follow up CT on 07/15/2018 showed no evidence of urolithiasis, obstructive uropathy or diverticulitis; it showed small to moderate ascites - C diff colitis, diagnosed on 05/11/2018. Pt is on pGT vancomycin (05/11/2018-); Pt previously took IV metronidazole (05/11/2018-05/29/2018; restart 05/30/2018- 06/05/18) too - Pt had multiple negative C. diff tests at [facility] and at [facility] in the past; none was positive until 05/11/2018 - dysphagia - h/o PEG placement 06/13/2018 - protein calorie malnutrition - h/o coffee ground emesis/UGIB on 12/23/2017 due to deep ulceration of distal esophagus and gastritis on EGD 12/26/2017. No e/o H. pylori - h/o possible appendicitis on CT on 11/22/2017, Pt took ertapenem (11/24/2017- 12/01/2017) - h/o extensive adhesions lower abdominal and pelvis between small bowel to each other and to colon and to abdominal wall, anterior pelvic wall chronic abscess secondary to probably an old perforated diverticulitis, torsion of small bowel around these dense adhesion causing multiple obstructive points - h/o laparoscopic exploration and extensive lysis of adhesions and drainage of anterior pelvic wall abscess 09/16/2017. Cultures were negative, no e/o malignancy. Pt took pip/tazo (09/16/2017-09/26/2017) - h/o EGD and exchange of PEG on 09/01/2017 - h/o partial obstruction mid jejunum in L anterior central pelvis with suggestion of a 3 cm soft tissue mass on CT 08/28/2017 - h/o internal stomal deep ulcer behind the internal bumper, gastritis and esophagitis, Rodriguez's cannot be ruled out, per EGD with biopsy 07/23/2017 - h/o GIB s/p flex sig showed polyp; stool OB negative on 06/29/17 - h/o stool OB positive status - h/o SBO and ileus due to pain meds - h/o mildly elevated CEA # renal/ - s/p recurrent UTI due to pseudomonas (culture on 07/09/2018)-->Garza catheter was replaced on 07/14/2018 - s/p UTI due to MDR, CRE-klebsiella on 06/15/2018. S/p renally dosed amikacin for klebsiella in her urine culture (06/17-06/22/2018) - s/p UTI due to pseudomonas and ESBL+klebsiella on 06/09/2018, Pt took one dose of fosfomycin on 06/10/2018 and cipro 06/12-06/15/2018 - anasarca - started on HD on 05/15/2018, via Juan in R groin - recurrent NATHAN on CKD - 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 Her strain of CRE was sensitive to colistin, Avycaz, and Vabomere but resistant to Zerbaxa (reported on 05/19/2018) - metabolic acidosis - adrenal insufficiency - h/o vaginal bleed in 2018 - h/o colonization of urinary tract by ESBL+klebsiella, VRE - h/o recurrent, symptomatic UTI due to carbapenem-resistant kleb (MDR strain) per urine culture 10/04/17, 10/09/17, 10/21/2017, P took colistin (10/09/2017- 10/15/2017), fosfomycin for carbapenemase-producing klebsiella and VRE on 10/25/2017 and 10/28/2017 - h/o funguria - h/o urinary retention # bloodstream infections - Bacteremia d/t pseudomonas aeruginosa 07/09/18, 07/10/18, 07/11/18, 07/12/18, 07/13/18, 07/15/18, 07/17/18. This is associated with PICC because the blood culture from PICC and phlebotomy on 07/13/2018 both grew the same bacteria. 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; Pt declined surgery for MVR per outside medical records; TTE 07/01/17 did not mentio n any thrombus; s/p voriconazole (05/25/2017-08/01/2017) - h/o bacteremia due to MSSA and proteus s/p ceftriaxone; repeat blood cultures were negative on 06/14/2017 # musculoskeletal and dermatological - dry skin - chronic wound of LLE - h/o infection of wound of LLE - h/o debridement of wound of LLE on 08/06/2017 - h/o recurrent herpes labialis, Pt took acyclovir, valacyclovir - h/o Osler's nodes (eschar) of R toes with erythematous skin; desquamation of the skin and open lacerations on R plantar foot. improved. Probable manifestation of endocarditis. Pt declined MRI on 08/06/2017 - h/o infection of R toes due to pseudomonas. coagulase negative Staph likely a colonizer - h/o intertrigo of the groin, resolved with nystatin powder - h/o scabies, locally crusted lesion over L scapula, s/p permethrin cream and pGT ivermectin on 08/11/2017, 08/12/2017, 08/19/2017. Repeat skin scraping on 08/21/2017 was negative for scabies # psych, neuro - chronic toxic metabolic encephalopathy, progressing - decreased hearing b/l - h/o critical illness polyneuropathy - anxiety/depression, bipolar d/o, seen by Psychiatry in the past - chronic pain syndrome - h/o medical non-compliance: she would refuse her medications, treatment and straight catheterization in 2018 # hematological, vascular - chronic anemia requiring blood transfusion intermittently - macrocytic anemia - aneurysmal dilatation of the distal aorta visualized on CT 06/15/2018 - PVD recommendations: - Pending results: repeat blood cultures from 07/18/2018 (negative so far) - Will require a prolonged course of abx given echo c/w possible vegetation - Continue amikacin IV (07/09/2018-). Pt had a strain of pseudomonas that was resistant to all except for aminoglycoside - Continue renally dosed cefepime (07/14/2018-); Pt needs double coverage because amikacin alone has not cleared her bacteremia. Some strains of pseudomonas she had were pansensitive while other strains of pseudomonas were resistant to many antibiotics (MDR) - Continue vancomycin pGT (07/09/18/ - ) because Pt continues to have multiple BMs as a result of taking anti-pseudomonal antibiotics. Pt completed IV metronidazole (07/09/18-07/15/18) - We recommend neuro consult as Pt has progressive chronic toxic metabolic encephalopathy - Consider goals of continued aggressive care; overall prognosis appears especially poor especially in light of recent echo findings. Plan was d/w Dr. Doyle via [employer] messaging. Consultation Date/Type/Reason Admit Date/Time May 06, 2018 at 17:38 Initial Consult Date 05/07/18 Type of Consult ID Requesting Provider: ROLAND GIRON MD Date/Time of Note DATE: 07/22/18 TIME: 11:36 24 HR Interval Summary Free Text/Dictation Patient has remained afebrile with no acute issues reported by nursing today. Blood cultures 07/18/18 show ngtd. Subjective hx not possible: pt non-verbal Exam/Review of Systems Exam Vitals Vital Signs Date Temp Pulse Resp B/P (MAP) Pulse Ox O2 O2 Flow FiO2 Time Delivery Rate 07/22/18 30 09:20 07/22/18 66 08:44 07/22/18 98.0 18 117/61 100 07:52 (79) 07/22/18 Trach 00:00 Collar Allergies Coded Allergies shellfish derived (Unverified Allergy, Unknown, 05/06/18) Intake and Output 07/21/18 07/21/18 07/22/18 1515:00 23:00 07:00 IntakeIntake Total 810 ml OutputOutput Total 600 ml BalanceBalance 210 ml Constitutional: well developed, frail, other (chronically debillitated ); No alert (lethargic) Psych: other (flat affect, opened eyes then closed them) Head: normocephalic, atraumatic Eyes: nl conjunctiva, nl lids ENMT: nl external ears & nose, nl nasal mucosa & septum, other (unable to examine op, kept mouth closed ) Neck: supple, non-tender, other (trach midline, site is c/d/i, on vent ) Respiratory: normal air movement, diminished breath sounds, other (mildly coarse breath sounds noted bilaterally anteriorly); No wheezing Cardiovascular: regular rate and rhythm, nl pulses, edema (generalized ) Gastrointestinal: soft, non-tender (appears nontender, patient did not react when I palpated ), bowel sounds (normoactive ), other (PEG site is c/d/i) Genitourinary - Female: other (f/c ) Musculoskeletal: muscle weakness Extremities: normal pulses, edema, other (BLE foot drop) Neurological: lethargic (eyes opened, she looked at me then closed them again. ), other (did not attempt to communicate nor follow commands.) Skin: ecchymosis, other (R foot wrapped with kerlix and c/d/i, L [place] with a c/d/i kerlix dressing in place.) Results Result Diagram: 07/20/18 0717 07/22/18 0643 Results 24hrs Laboratory Tests Test 07/22/18 06:43 Sodium Level 139 Potassium Level 3.2 L Chloride Level 98 Carbon Dioxide Level 28 Anion Gap 13 Blood Urea Nitrogen 100 H Creatinine 2.30 H Est Glomerular Filtrat Rate mL/min Glucose Level 103 Calcium Level 9.4 Phosphorus Level 3.8 Magnesium Level 1.7 Medications Medication Current Medications IV Flush (NS 10 ml) 10 ml PRN IV ; Start 05/06/18 at 20:30 Zinc Sulfate (Zinc Sulfate) 220 mg DAILY GTB Last administered on 07/22/18 09:28; Admin Dose 220 MG; Start 05/07/18 at 09:00 Ondansetron HCl (Zofran Tab) 4 mg Q6H PRN GTB NAUSEA AND/OR VOMITING Last administered on 05/31/18 16:47; Admin Dose 4 MG; Start 05/07/18 at 00:15 Multivitamins (Multivitamin) 30 ml DAILY GTB Last administered on 07/22/18 09:27; Admin Dose 30 ML; Start 05/07/18 at 09:00 Miscellaneous Information (Pending Santyl Order For Wound Care) This patient goldman... PRN PRN XX WOUND CARE; Start 05/09/18 at 17:00 Famotidine (Pepcid) 20 mg DAILY PEG Last administered on 07/22/18 09:28; Admin Dose 20 MG; Start 05/23/18 at 09:00 Morphine Sulfate (morphine) 6 mg Q4H PRN PEG SEVERE PAIN LEVEL 7-10 Last administered on 07/20/18 05:12; Admin Dose 6 MG; Start 05/22/18 at 17:00 Acetaminophen (Tylenol Tab) 650 mg Q4H PRN PO MILD PAIN(1-3)OR ELEVATED TEMP Last administered on 07/16/18 00:42; Admin Dose 650 MG; Start 05/31/18 at 13:00 Collagenase (Santyl) 1 applic DAILY TOP Last administered on 07/22/18 09:27; Admin Dose 1 APPLIC; Start 06/01/18 at 09:00 Clonidine (Catapres) 0.1 mg Q6H PRN PO ELEVATED BLOOD PRESSURE Last administered on 07/09/18 09:08; Admin Dose 0.1 MG; Start 06/03/18 at 03:30 Bumetanide (Bumex) 1 mg BID DIURETICS GTB Last administered on 07/22/18 05:41; Admin Dose 1 MG; Start 06/11/18 at 18:00 Miscellaneous Information 1 ea NOTE XX ; Start 06/26/18 at 08:00 Dicyclomine HCl (Bentyl) 20 mg Q8 PO Last administered on 07/22/18 05:43; Admin Dose 20 MG; Start 06/27/18 at 22:00 Cholestyramine Resin (Questran Light) 4 gm 0600,1200,1800,2300 GTB Last ad ministered on 07/22/18 06:13; Admin Dose 4 GM; Start 06/27/18 at 18:00 Lorazepam (Ativan) 0.5 mg Q4 PRN IV ANXIETY Last administered on 07/21/18 22:46; Admin Dose 0.5 MG; Start 07/01/18 at 14:00 Amiodarone HCl (Cordarone) 200 mg Q8 GTB Last administered on 07/22/18 05:42; Admin Dose 200 MG; Start 07/05/18 at 22:00 Metoprolol Tartrate (Lopressor) 50 mg Q8 GTB Last administered on 07/22/18 05:43; Admin Dose 50 MG; Start 07/05/18 at 22:00 Citric Acid/ Sodium Citrate (Bicitra) 60 ml Q8 PO Last administered on 07/22/18 05:43; Admin Dose 60 ML; Start 07/09/18 at 14:00 Amikacin Sulfate (Amikacin Iv Per Pharmacy) 1 ea NOTE XX ; Start 07/09/18 at 17:30 Vancomycin HCl (Vancomycin Oral Syringe) 125 mg Q6 GTB Last administered on 07/22/18 05:43; Admin Dose 125 MG; Start 07/09/18 at 18:00 Epoetin Zen-epbx (Retacrit (Non-Esrd)) 10,000 unit MoWeFr@1700 SC Last administered on 07/20/18 18:11; Admin Dose 10,000 UNIT; Start 07/13/18 at 17:00 Cefepime HCl 50 ml @ 100 mls/hr Q24H IVPB Last administered on 07/21/18 18:04; Admin Dose 100 MLS/HR; Start 07/14/18 at 18:30 Amikacin Sulfate 300 mg/Dextrose 101.2 ml @ 102 mls/hr Q24H IVPB Last administered on 07/21/18 22:46; Admin Dose 102 MLS/HR; Start 07/21/18 at 23:00 Albuterol/ Ipratropium (Duoneb) 3 ml Q2H RESP THERAPY PRN HHN WHEEZING Last administered on 07/21/18at 23:06; Admin Dose 3 ML; Start 07/21/18 at 22:00 KENA MÉNDEZ NP Jul 22, 2018 11:39
--- NOTE | 2018-07-22 13:44 | PN ---
DATE: 07/22/2018 SUBJECTIVE: The patient is stable. No events overnight. OBJECTIVE: VITAL SIGNS: Blood pressure is 117/61, pulse 85, respirations 19, temperature 98.0. HEENT: Head is normocephalic. NECK: Supple. HEART: Regular rate. LUNGS: Show diminished breath sounds at the base. ABDOMEN: Soft, nontender to palpation without rebound or guarding. EXTREMITIES: Negative for clubbing, cyanosis. Trace edema. DERMATOLOGIC: No rashes. MUSCULOSKELETAL: No joint effusion. NEUROLOGIC: No change in exam. MEDICATIONS: Have been reviewed. LABORATORY DATA: Have been reviewed. IMAGING STUDIES: Have been reviewed. ASSESSMENT AND PLAN: 1. Nonoliguric acute kidney injury with previous baseline creatinine of 2.0 mg/dL. Etiology of acut e kidney injury is secondary to acute tubular necrosis. The patient is status post hemodialysis for 2 weeks. The patient had adequate renal recovery. . At this point, continue to monitor. Continue current treatment plan, supportive care, renally dose all meds. 2. Hypernatremia, improved. Continue free water flushes. 3. Hypokalemia. Continue to monitor and replete as needed. 4. Metabolic acidosis, improved. Continue Bicitra. 5. Volume overload. The patient has been resumed on diuretic therapy. Monitor electrolytes and dot l function closely. 6. Anemia. Monitor hemoglobin and hematocrit levels. We will give Epogen as needed. 7. Ventilatory-dependent respiratory failure. Vent settings have been reviewed. Continue to monito r. 8. Presumed endocarditis. Continue antibiotic therapy per infectious disease. 9. Dysphagia. Continue tube feeding. 10. Lower extremity wounds. Continue wound care. Dictated By: JEANA BANSAL DO NR/NTS Conf#: [id number] DID#: [id number] CC: QUINTEN UMAÑA MD; ROLAND GIRON MD;*EndCC*
[2018-07-22] MEDS: CEFEPIME 2GM/50 ML (PMX) 50 ML IVPB SCH (17:50)
[2018-07-22] MEDS: EPOETIN ALFA-EPBX (NON-ESRD 10,000 UNIT/ML VIAL SC SCH (18:19)
[2018-07-22] MEDS ORDERED: POTASSIUM CHLORIDE 20 MEQ POWDER FOR ORAL SOLN GTB ONE (19:30)
--- NOTE | 2018-07-22 19:32 | PN ---
Date/Time of Note Date/Time of Note DATE: 07/22/18 TIME: 19:29 Assessment/Plan VTE Prophylaxis Risk score (from Ns)>0 risk: 7 SCD applied (from Ns): Yes Pharmacological prophylaxis: NA/contraindicated Pharm contraindication: anticoag not tolerated Lines/Catheters [facility]from [facility] Saline Lock Urinary Cath still in place: Yes Reason Cath still needed: urinary retention Assessment/Plan Hospital Course Potassium replace, check BMP tomorrow. Patient continues on ventilatory support without distress, cb hemodynamically stable, tolerates feeding well. Pt continues on Cefepime and Amikacin for bacteremia. Pending placement. Assessment/Plan -Persistent leukocytosis with Pseudomonas bacteremia 2 to PICC line infection, continue antibiotics per ID. Dr. Walton is following in infection disease consultation. 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 TTE 07/16/18 with notion of echodense structure on the mitral valve, calcification vs vegetation. Dr. Scanlon is following in cardiology consultation. -MDR Klebsiella urinary tract infection, completed treatment with amikacin. -Atrial fibrillation was rapid ventricular response, patient remains in sinus rhythm continue metoprolol and amiodarone. -S/p septic shock secondary to urinary tract infection, anterior neck soft tissue infection, and C. difficile colitis. -C-diff colitis,resolved. -Acute respiratory failure requiring intubation and ventilatory support. Dr. Lambert is following in pulmonology consultation. -S/p tracheostomy on 05/29/18. -Acute kidney injury on chronic kidney disease. Started on HD this admission wi th recovery of renal function. Dr. Mckeon is following in nephrology consultation. -Anemia of chronic inflammation, stool for OB is negative, status post blood transfusion. Continue Epogen. -Metabolic acidosis, resolved. -Acute diastolic congestive heart failure. -Paroxysmal atrial fibrillation -COPD -Dysphagia with PEG. -G-tube mild malfunction, changed by GI Dr. Carolina is following in chani roenterology consultation. -Obesity -Critical care myopathy Further recommendations based on clinical course. Plan of care discussed with Dr. Eisenberg. Result Diagram: 07/20/18 0717 07/22/18 0643 Results 24hrs Laboratory Tests Test 07/22/18 06:43 Sodium Level 139 Potassium Level 3.2 L Chloride Level 98 Carbon Dioxide Level 28 Anion Gap 13 Blood Urea Nitrogen 100 H Creatinine 2.30 H Est Glomerular Filtrat Rate mL/min Glucose Level 103 Calcium Level 9.4 Phosphorus Level 3.8 Magnesium Level 1.7 Exam/Review of Systems Exam Vitals Vital Signs Date Temp Pulse Resp B/P (MAP) Pulse Ox O2 O2 Flow FiO2 Time Delivery Rate 07/22/18 68 17:06 07/22/18 20 100 30 16:57 07/22/18 97.9 101/43 15:27 (62) 07/22/18 Trach 00:00 Collar Intake and Output 07/21/18 07/21/18 07/22/18 1515:00 23:00 07:00 IntakeIntake Total 810 ml OutputOutput Total 600 ml BalanceBalance 210 ml Exam Constitutional: alert, oriented Neck: other (Tracheostomy) Respiratory: diminished breath sounds Cardiovascular: regular rate and rhythm Gastrointestinal: soft, non-tender, other (G-tube) Extremities: normal pulses Neurological: nl mental status Results Results 24hrs Laboratory Tests Test 07/22/18 06:43 Sodium Level 139 Potassium Level 3.2 L Chloride Level 98 Carbon Dioxide Level 28 Anion Gap 13 Blood Urea Nitrogen 100 H Creatinine 2.30 H Est Glomerular Filtrat Rate mL/min Glucose Level 103 Calcium Level 9.4 Phosphorus Level 3.8 Magnesium Level 1.7 Medications Medication Current Medications IV Flush (NS 10 ml) 10 ml PRN IV ; Start 05/06/18 at 20:30 Zinc Sulfate (Zinc Sulfate) 220 mg DAILY GTB Last administered on 07/22/18at 09:28; Admin Dose 220 MG; Start 05/07/18 at 09:00 Ondansetron HCl (Zofran Tab) 4 mg Q6H PRN GTB NAUSEA AND/OR VOMITING Last administered on 05/31/18at 16:47; Admin Dose 4 MG; Start 05/07/18 at 00:15 Multivitamins (Multivitamin) 30 ml DAILY GTB Last administered on 07/22/18at 09:27; Admin Dose 30 ML; Start 05/07/18 at 09:00 Miscellaneous Information (Pending Santyl Order For Wound Care) This patient goldman... PRN PRN XX WOUND CARE; Start 05/09/18 at 17:00 Acetaminophen (Tylenol Tab) 650 mg Q4H PRN PO MILD PAIN(1-3)OR ELEVATED TEMP Last administered on 07/16/18 00:42; Admin Dose 650 MG; Start 05/31/18 at 13:00 Collagenase (Santyl) 1 applic DAILY TOP Last administered on 07/22/18 09:27; Admin Dose 1 APPLIC; Start 06/01/18 at 09:00 Clonidine (Catapres) 0.1 mg Q6H PRN PO ELEVATED BLOOD PRESSURE Last administered on 07/09/18 09:08; Admin Dose 0.1 MG; Start 06/03/18 at 03:30 Bumetanide (Bumex) 1 mg BID DIURETICS GTB Last administered on 07/22/18 17:44; Admin Dose 1 MG; Start 06/11/18 at 18:00 Miscellaneous Information 1 ea NOTE XX ; Start 06/26/18 at 08:00 Dicyclomine HCl (Bentyl) 20 mg Q8 PO Last administered on 07/22/18 13:37; Admin Dose 20 MG; Start 06/27/18 at 22:00 Cholestyramine Resin (Questran Light) 4 gm 0600,1200,1800,2300 GTB Last administered on 07/22/18 17:44; Admin Dose 4 GM; Start 06/27/18 at 18:00 Lorazepam (Ativan) 0.5 mg Q4 PRN IV ANXIETY Last administered on 07/21/18 22:46; Admin Dose 0.5 MG; Start 07/01/18 at 14:00 Metoprolol Tartrate (Lopressor) 50 mg Q8 GTB Last administered on 07/22/18 05:43; Admin Dose 50 MG; Start 07/05/18 at 22:00 Citric Acid/ Sodium Citrate (Bicitra) 60 ml Q8 PO Last administered on 07/22/18 13:37; Admin Dose 60 ML; Start 07/09/18 at 14:00 Amikacin Sulfate (Amikacin Iv Per Pharmacy) 1 ea NOTE XX ; Start 07/09/18 at 17:30 Vancomycin HCl (Vancomycin Oral Syringe) 125 mg Q6 GTB Last administered on 07/22/18 17:44; Admin Dose 125 MG; Start 07/09/18 at 18:00 Epoetin Zen-epbx (Retacrit (Non-Esrd)) 10,000 unit MoWeFr@1700 SC Last administered on 6/5/19at 18:19; Admin Dose 10,000 UNIT; Start 07/13/18 at 17:00 Cefepime HCl 50 ml @ 100 mls/hr Q24H IVPB Last administered on 07/22/18at 17:50; Admin Dose 100 MLS/HR; Start 07/14/18 at 18:30 Albuterol/ Ipratropium (Duoneb) 3 ml Q2H RESP THERAPY PRN HHN WHEEZING Last administered on 07/21/18at 23:06; Admin Dose 3 ML; Start 07/21/18 at 22:00 Amiodarone HCl (Cordarone) 200 mg BID GTB ; Start 07/22/18 at 21:00 Amikacin Sulfate 300 mg/Dextrose 101.2 ml @ 102 mls/hr Q72H IVPB ; Start 07/24/18 at 23:00 GRISELDA DENNIS Jul 22, 2018 19:32
[2018-07-23] VITALS (22 sets, daily range): BP systolic 139–163; BP diastolic 68–85; PULSE 64–90; RESP 18–22
[2018-07-23] MEDS: BUMETANIDE 1 MG TAB GTB SCH ×2 (05:18→18:45)
[2018-07-23] MEDS: CITRIC ACID/NA CITRATE 30 ML CUP PO SCH ×2 (05:18→09:36)
[2018-07-23] MEDS: CHOLESTYRAMINE (LIGHT) 4 GM PACKET GTB SCH ×4 (05:18→23:44)
[2018-07-23] MEDS: DICYCLOMINE 10 MG CAP PO SCH ×3 (05:18→21:58)
[2018-07-23] MEDS: METOPROLOL 50 MG TAB GTB SCH ×3 (05:19→21:58)
[2018-07-23] MEDS: VANCOMYCIN HCL 250 MG/5ML POSYG GTB SCH ×4 (05:19→23:44)
--- NOTE | 2018-07-23 08:54 | PN ---
DATE: 07/23/2018 SUBJECTIVE: The patient is stable, no events overnight. No fevers, chills, nausea or vomiting. OBJECTIVE: VITAL SIGNS: Blood pressure is 145/69, respirations 21, pulse 69, temperature 97.6. HEENT: Head is normocephalic. NECK: Supple. HEART: Regular rate. LUNGS: Show diminished breath sounds at the base. ABDOMEN: Soft, nontender to palpation without rebound or guarding. EXTREMITIES: Negative for clubbing, cyanosis. Positive edema. DERMATOLOGIC: No rashes. MUSCULOSKELETAL: No joint effusion. NEUROLOGIC: No change in exam. MEDICATIONS: Reviewed. LABORATORY DATA: Currently pending. ASSESSMENT AND PLAN: 1. Nonoliguric acute kidney injury with previous baseline creatinine of 2.0 mg/dL. Etiology of acut e kidney injury is secondary to acute tubular necrosis. The patient is status post hemodialysis for 2 weeks. The patient has shown adequate renal recovery. Currently off hemodialysis. We will contin ue current treatment plan, supportive care and renally dose all medications. 2. Hypernatremia, improved. Continue free water flushes. 3. Hypokalemia. Continue to monitor and replete as needed. 4. Metabolic acidosis, improved. Continue Bicitra. 5. Volume overload. The patient has been resumed on diuretic therapy. Continue to monitor renal fu nction and electrolytes closely. 6. Anemia. Continue to monitor hemoglobin and hematocrit levels. Continue Epogen. 7. Ventilator-dependent respiratory failure. Vent settings have been reviewed. Continue to monitor . 8. Presumed endocarditis. Continue antibiotic therapy. 9. Dysphagia. Continue tube feeding. 10. Lower extremity wounds. Continue wound care. Dictated By: JEANA BANSAL DO NR/NTS Conf#: [id number] DID#: [id number] CC: QUINTEN UMAÑA MD; ROLAND GIRON MD;*EndCC*
[2018-07-23] MEDS: AMIODARONE 200 MG TAB GTB SCH ×2 (09:35→21:58)
[2018-07-23] MEDS: MULTIVITAMINS 30 ML CUP GTB SCH (09:35)
[2018-07-23] MEDS: COLLAGENASE 5 GM (UD JAR) TOP SCH (09:35)
[2018-07-23] MEDS: ZINC SULFATE 220 MG CAP GTB SCH (09:36)
[2018-07-23] MEDS: BALSAM PERU/CASTOR OIL 60 GM TUBE TOP SCH ×2 (09:36→21:59)
--- NOTE | 2018-07-23 13:44 | CONS ---
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 Continue beta-tin as tolerated -Patient with paroxysmal atrial fibrillation, currently in sinus rhythm -Continue amiodarone and decrease to twice daily -Vent management as per pulmonary -Fluid management and electrolytes as per renal -No anticoagulation given recurrent anemia requiring blood transfusions Consultation Date/Type/Reason Admit Date/Time May 06, 2018 at 17:38 Initial Consult Date 05/10/18 Type of Consult Cardiology Requesting Provider: ROLAND GIRON MD Date/Time of Note DATE: 07/23/18 TIME: 13:42 24 HR Interval Summary Free Text/Dictation Patient seen and examined Exam/Review of Systems Vital Signs Vitals Vital Signs Date Temp Pulse Resp B/P (MAP) Pulse Ox O2 O2 Flow FiO2 Time Delivery Rate 07/23/18 71 12:00 07/23/18 98.4 20 145/68 100 Trach 11:17 (93) Collar 07/23/18 30 11:06 Intake and Output 07/22/18 07/22/18 07/23/18 1515:00 23:00 07:00 IntakeIntake Total 790 ml OutputOutput Total 500 ml 600 ml BalanceBalance -500 ml 190 ml Exam Exam Awake, looks me when her name is called, not following commands Head: normocephalic Neck: other (Tracheostomy) Respiratory: other (Coarse breath sounds bilaterally, no wheezing) Cardiovascular: regular rate and rhythm (S1-S2 heard) Gastrointestinal: soft, non-tender, bowel sounds Extremities: edema Labs Result Diagram: 07/23/18 0725 07/23/18 0725 Results 24hrs Laboratory Tests Test 07/23/18 07:25 White Blood Count 9.7 Red Blood Count 2.80 L Hemoglobin 9.1 L Hematocrit 29.9 L Mean Corpuscular Volume 106.8 H Mean Corpuscular Hemoglobin 32.5 Mean Corpuscular Hemoglobin Concent 30.4 L Red Cell Distribution Width 21.9 H Platelet Count 284 Mean Platelet Volume 10.7 H Immature Granulocytes % 0.400 Neutrophils % 83.3 H Lymphocytes % 8.5 L Monocytes % 5.6 Eosinophils % 2.0 Basophils % 0.2 Nucleated Red Blood Cells % 0.0 Immature Granulocytes # 0.040 H Neutrophils # 8.1 H Lymphocytes # 0.8 Monocytes # 0.6 Eosinophils # 0.2 Basophils # 0.0 Nucleated Red Blood Cells # 0.0 Sodium Level 141 Potassium Level 3.8 Chloride Level 99 Carbon Dioxide Level 31 Anion Gap 11 Blood Urea Nitrogen 101 H Creatinine 2.30 H Est Glomerular Filtrat Rate mL/min Glucose Level 133 Calcium Level 9.6 Phosphorus Level 3.6 Magnesium Level 1.7 Medications Medications Current Medications IV Flush (NS 10 ml) 10 ml PRN IV ; Start 05/06/18 at 20:30 Zinc Sulfate (Zinc Sulfate) 220 mg DAILY GTB Last administered on 07/23/18 09:36; Admin Dose 220 MG; Start 05/07/18 at 09:00 Ondansetron HCl (Zofran Tab) 4 mg Q6H PRN GTB NAUSEA AND/OR VOMITING Last administered on 05/31/18 16:47; Admin Dose 4 MG; Start 05/07/18 at 00:15 Multivitamins (Multivitamin) 30 ml DAILY GTB Last administered on 07/23/18 09:35; Admin Dose 30 ML; Start 05/07/18 at 09:00 Miscellaneous Information (Pending Santyl Order For Wound Care) This patient goldman... PRN PRN XX WOUND CARE; Start 05/09/18 at 17:00 Acetaminophen (Tylenol Tab) 650 mg Q4H PRN PO MILD PAIN(1-3)OR ELEVATED TEMP Last administered on 07/16/18 00:42; Admin Dose 650 MG; Start 05/31/18 at 13:00 Collagenase (Santyl) 1 applic DAILY TOP Last administered on 07/23/18 09:35; Admin Dose 1 APPLIC; Start 06/01/18 at 09:00 Clonidine (Catapres) 0.1 mg Q6H PRN PO ELEVATED BLOOD PRESSURE Last administered on 07/09/18 09:08; Admin Dose 0.1 MG; Start 06/03/18 at 03:30 Bumetanide (Bumex) 1 mg BID DIURETICS GTB Last administered on 07/23/18 05:18; Admin Dose 1 MG; Start 06/11/18 at 18:00 Miscellaneous Information 1 ea NOTE XX ; Start 06/26/18 at 08:00 Dicyclomine HCl (Bentyl) 20 mg Q8 PO Last administered on 07/23/18 05:18; Admin Dose 20 MG; Start 06/27/18 at 22:00 Cholestyramine Resin (Questran Light) 4 gm 0600,1200,1800,2300 GTB Last administered on 07/23/18 05:18; Admin Dose 4 GM; Start 06/27/18 at 18:00 Lorazepam (Ativan) 0.5 mg Q4 PRN IV ANXIETY Last administered on 07/21/18at 22:46; Admin Dose 0.5 MG; Start 07/01/18 at 14:00 Metoprolol Tartrate (Lopressor) 50 mg Q8 GTB Last administered on 07/23/18 05:19; Admin Dose 50 MG; Start 07/05/18 at 22:00 Amikacin Sulfate (Amikacin Iv Per Pharmacy) 1 ea NOTE XX ; Start 07/09/18 at 17:30 Vancomycin HCl (Vancomycin Oral Syringe) 125 mg Q6 GTB Last administered on 07/23/18 05:19; Admin Dose 125 MG; Start 07/09/18 at 18:00 Epoetin Zen-epbx (Retacrit (Non-Esrd)) 10,000 unit MoWeFr@1700 SC Last administered on 07/22/18 18:19; Admin Dose 10,000 UNIT; Start 07/13/18 at 17:00 Cefepime HCl 50 ml @ 100 mls/hr Q24H IVPB Last administered on 07/22/18at 17:50; Admin Dose 100 MLS/HR; Start 07/14/18 at 18:30 Albuterol/ Ipratropium (Duoneb) 3 ml Q2H RESP THERAPY PRN HHN WHEEZING Last administered on 07/21/18 23:06; Admin Dose 3 ML; Start 07/21/18 at 22:00 Amiodarone HCl (Cordarone) 200 mg BID GTB Last administered on 07/23/18 09:35; Admin Dose 200 MG; Start 07/22/18 at 21:00 Amikacin Sulfate 300 mg/Dextrose 101.2 ml @ 102 mls/hr Q72H IVPB ; Start 07/24/18 at 23:00 Citric Acid/ Sodium Citrate (Bicitra) 60 ml DAILY PO Last administered on 07/23at 09:36; Admin Dose 60 ML; Start 07/23/18 at 09:00 Evangelista Scanlon DO Jul 23, 2018 13:44
--- NOTE | 2018-07-23 14:29 | PN ---
Date/Time of Note Date/Time of Note DATE: 07/23/18 TIME: 14:28 Assessment/Plan VTE Prophylaxis Risk score (from [facility] [place])>0 risk: 8 SCD applied (from [facility] [place]): Yes Pharmacological prophylaxis: NA/contraindicated Pharm contraindication: anticoag not tolerated Lines/Catheters [facility] Saline Lock Urinary Cath still in place: Yes Reason Cath still needed: urinary retention Assessment/Plan Hospital Course Patient is very lethargic however arousable continues on ventilatory support without any distress. Labs noted, stable. Discussed with Dr. Doyle, infection disease, patient needs IV cefepime and amikacin for treatment of bacteremia and presumed endocarditis for 5 weeks until 08/22/2018. Pending snf facility placement, per case management meeting in the morning no bed is available today. Assessment/Plan -Persistent leukocytosis with Pseudomonas bacteremia 2 to PICC line infection, continue antibiotics per ID. Dr. Doyle is following in infection disease consultation. 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 TTE 07/16/18 with notion of echodense structure on the mitral valve, calcification vs vegetation. Dr. Scanlon is following in cardiology consultation.patient needs IV cefepime and amikacin for treatment of bacteremia and presumed endocarditis for 5 weeks until 08/22/2018 per ID recommendations. -MDR Klebsiella urinary tract infection, completed treatment with amikacin. -Atrial fibrillation was rapid ventricular response, patient remains in sinus rhythm continue metoprolol and amiodarone. -S/p septic shock secondary to urinary tract infection, anterior neck soft tissue infection, and C. difficile colitis. -C-diff colitis,resolved. -Acute respiratory failure requiring intubation and ventilatory support. Dr. Lambert is following in pulmonology consultation. -S/p tracheostomy on 05/29/18. -Acute kidney injury on chronic kidney disease. Started on HD this admission with recovery of renal function. Dr. Mckeon is following in nephrology consultation. -Anemia of chronic inflammation, stool for OB is negative, status post blood transfusion. Continue Epogen. -Metabolic acidosis, resolved. -Acute diastolic congestive heart failure. -Paroxysmal atrial fibrillation -COPD -Dysphagia with PEG. -G-tube mild malfunction, changed by GI Dr. Carolina is following in gastroenterology consultation. -Obesity -Critical care myopathy Further recommendations based on clinical course. Plan of care discussed with Dr. Eisenberg. Result Diagram: 07/23/18 0725 07/23/18 0725 Results 24hrs Laboratory Tests Test 07/23/18 07:25 White Blood Count 9.7 Red Blood Count 2.80 L Hemoglobin 9.1 L Hematocrit 29.9 L Mean Corpuscular Volume 106.8 H Mean Corpuscular Hemoglobin 32.5 Mean Corpuscular Hemoglobin Concent 30.4 L Red Cell Distribution Width 21.9 H Platelet Count 284 Mean Platelet Volume 10.7 H Immature Granulocytes % 0.400 Neutrophils % 83.3 H Lymphocytes % 8.5 L Monocytes % 5.6 Eosinophils % 2.0 Basophils % 0.2 Nucleated Red Blood Cells % 0.0 Immature Granulocytes # 0.040 H Neutrophils # 8.1 H Lymphocytes # 0.8 Monocytes # 0.6 Eosinophils # 0.2 Basophils # 0.0 Nucleated Red Blood Cells # 0.0 Sodium Level 141 Potassium Level 3.8 Chloride Level 99 Carbon Dioxide Level 31 Anion Gap 11 Blood Urea Nitrogen 101 H Creatinine 2.30 H Est Glomerular Filtrat Rate mL/min Glucose Level 133 Calcium Level 9.6 Phosphorus Level 3.6 Magnesium Level 1.7 Exam/Review of Systems Exam Vitals Vital Signs Date Temp Pulse Resp B/P (MAP) Pulse Ox O2 O2 Flow FiO2 Time Delivery Rate 07/23/18 74 21 98 30 13:05 07/23/18 98.4 145/68 Trach 11:17 (93) Collar Intake and Output 07/22/18 07/22/18 07/23/18 1515:00 23:00 07:00 IntakeIntake Total 790 ml OutputOutput Total 500 ml 600 ml BalanceBalance -500 ml 190 ml Exam Constitutional: alert, oriented Neck: other (Tracheostomy) Respiratory: diminished breath sounds Cardiovascular: regular rate and rhythm Gastrointestinal: soft, non-tender, other (G-tube) Extremities: normal pulses Neurological: nl mental status Results Results 24hrs Laboratory Tests Test 07/23/18 07:25 White Blood Count 9.7 Red Blood Count 2.80 L Hemoglobin 9.1 L Hematocrit 29.9 L Mean Corpuscular Volume 106.8 H Mean Corpuscular Hemoglobin 32.5 Mean Corpuscular Hemoglobin Concent 30.4 L Red Cell Distribution Width 21.9 H Platelet Count 284 Mean Platelet Volume 10.7 H Immature Granulocytes % 0.400 Neutrophils % 83.3 H Lymphocytes % 8.5 L Monocytes % 5.6 Eosinophils % 2.0 Basophils % 0.2 Nucleated Red Blood Cells % 0.0 Immature Granulocytes # 0.040 H Neutrophils # 8.1 H Lymphocytes # 0.8 Monocytes # 0.6 Eosinophils # 0.2 Basophils # 0.0 Nucleated Red Blood Cells # 0.0 Sodium Level 141 Potassium Level 3.8 Chloride Level 99 Carbon Dioxide Level 31 Anion Gap 11 Blood Urea Nitrogen 101 H Creatinine 2.30 H Est Glomerular Filtrat Rate mL/min Glucose Level 133 Calcium Level 9.6 Phosphorus Level 3.6 Magnesium Level 1.7 Medications Medication Current Medications IV Flush (NS 10 ml) 10 ml PRN IV ; Start 05/06/18 at 20:30 Zinc Sulfate (Zinc Sulfate) 220 mg DAILY GTB Last administered on 07/23/18 09:36; Admin Dose 220 MG; Start 05/07/18 at 09:00 Ondansetron HCl (Zofran Tab) 4 mg Q6H PRN GTB NAUSEA AND/OR VOMITING Last administered on 05/31/18 16:47; Admin Dose 4 MG; Start 05/07/18 at 00:15 Multivitamins (Multivitamin) 30 ml DAILY GTB Last administered on 07/23/18 09:35; Admin Dose 30 ML; Start 05/07/18 at 09:00 Miscellaneous Information (Pending Santyl Order For Wound Care) This patient goldman... PRN PRN XX WOUND CARE; Start 05/09/18 at 17:00 Acetaminophen (Tylenol Tab) 650 mg Q4H PRN PO MILD PAIN(1-3)OR ELEVATED TEMP Last administered on 07/16/18 00:42; Admin Dose 650 MG; Start 05/31/18 at 13:00 Collagenase (Santyl) 1 applic DAILY TOP Last administered on 07/23/18 09:35; Admin Dose 1 APPLIC; Start 06/01/18 at 09:00 Clonidine (Catapres) 0.1 mg Q6H PRN PO ELEVATED BLOOD PRESSURE Last administered on 07/09/18 09:08; Admin Dose 0.1 MG; Start 06/03/18 at 03:30 Bumetanide (Bumex) 1 mg BID DIURETICS GTB Last administered on 07/23/18 05:18; Admin Dose 1 MG; Start 06/11/18 at 18:00 Miscellaneous Information 1 ea NOTE XX ; Start 06/26/18 at 08:00 Dicyclomine HCl (Bentyl) 20 mg Q8 PO Last administered on 07/23/18 05:18; Admin Dose 20 MG; Start 06/27/18 at 22:00 Cholestyramine Resin (Questran Light) 4 gm 0600,1200,1800,2300 GTB Last administered on 07/23/18 05:18; Admin Dose 4 GM; Start 06/27/18 at 18:00 Lorazepam (Ativan) 0.5 mg Q4 PRN IV ANXIETY Last administered on 07/21/18 22:46; Admin Dose 0.5 MG; Start 07/01/18 at 14:00 Metoprolol Tartrate (Lopressor) 50 mg Q8 GTB Last administered on 07/23/18 05:19; Admin Dose 50 MG; Start 07/05/18 at 22:00 Amikacin Sulfate (Amikacin Iv Per Pharmacy) 1 ea NOTE XX ; Start 07/09/18 at 17:30 Vancomycin HCl (Vancomycin Oral Syringe) 125 mg Q6 GTB Last administered on 07/23/18 05:19; Admin Dose 125 MG; Start 07/09/18 at 18:00 Epoetin Zen-epbx (Retacrit (Non-Esrd)) 10,000 unit MoWeFr@1700 SC Last administered on 07/22/18 18:19; Admin Dose 10,000 UNIT; Start 07/13/18 at 17:00 Cefepime HCl 50 ml @ 100 mls/hr Q24H IVPB Last administered on 07/22/18at 17:50; Admin Dose 100 MLS/HR; Start 07/14/18 at 18:30 Albuterol/ Ipratropium (Duoneb) 3 ml Q2H RESP THERAPY PRN HHN WHEEZING Last administered on 07/21/18 23:06; Admin Dose 3 ML; Start 07/21/18 at 22:00 Amiodarone HCl (Cordarone) 200 mg BID GTB Last administered on 07/23/18 09:35; Admin Dose 200 MG; Start 07/22/18 at 21:00 Amikacin Sulfate 300 mg/Dextrose 101.2 ml @ 102 mls/hr Q72H IVPB ; Start 07/24/18 at 23:00 Citric Acid/ Sodium Citrate (Bicitra) 60 ml DAILY PO Last administered on 07/23/18at 09:36; Admin Dose 60 ML; Start 07/23/18 at 09:00 GRISELDA DENNIS Jul 23, 2018 14:29
--- NOTE | 2018-07-23 17:02 | EN ---
Date/Time of Note Date/Time of Note DATE: 07/23/18 TIME: 17:02 Event Note Medicine Medicine Event Note EMR reviewed. further eval with GEODETIC TECHNICIAN under my direction to follow. full note to follow shortly MANN VALDEZ MD Jul 23, 2018 17:02
[2018-07-23] MEDS: CEFEPIME 2GM/50 ML (PMX) 50 ML IVPB SCH (18:45)
--- NOTE | 2018-07-23 18:53 | CONS ---
Assessment/Plan Assessment/Plan Hospital Course (Demo Recall) # sepsis, leukocytosis, SIRS, pulmonary, cardiac - recurrent leukocytosis due to bacteremia (below), improved - s/p septic shock due to pneumonia and C diff colitis - acute on chronic hypoxic respiratory failure, persistent - s/p reintubation 05/12/2018 - s/p re-do trach on 05/29/2018 - recurrent colonization of the anterior neck wound with ESBL+kleb, MRSA, GBS, corynebacteria on 05/06/2018 - h/o pneumonia vs. colonization of the airway by pseudomonas and ESBL+klebsiella - h/o possible, recurrent HCAP due to pseudomonas and ESBL+klebsiella - h/o recurrent HCAP due to MRSA and Enterobacter (culture of tracheal aspirate on 07/16/2017 that was collected at [facility]) . Pt took vancomycin and ceftazidime - h/o decannulation prior to admission - h/o tracheostomy on 06/11/2017 - h/o SIRS from UGIB in 2018 - h/o thoracentesis on 07/18/2017, transudative (protein <2, LDH 279) - h/o bleeding from the trach site in 2018 - h/o septic shock due to pneumonia, ARDS, bacteremia, fungemia in 2018 - h/o ARDS in 2018 - h/o smoking - COPD - h/o ILD per medical record - h/o PAF, improved - echodense structure in posterior leafleat region, differential includes calcification vs vegetation per 2D echo 07/15/2018 # GI - s/p possible ileus or enterocolitis on CT abd/pel 06/15/2018-->follow up CT on 07/15/2018 showed no evidence of urolithiasis, obstructive uropathy or diverticulitis; it showed small to moderate ascites - C diff colitis, diagnosed on 05/11/2018. Pt is on pGT vancomycin (05/11/2018-); Pt previously took IV metronidazole (05/11/2018-05/29/2018; restart 05/30/2018- 06/05/18) too - Pt had multiple negative C. diff tests at [facility] and at OSH in the past; none was positive until 05/11/2018 - dysphagia - h/o PEG placement 06/13/2018 - protein calorie malnutrition - h/o coffee ground emesis/UGIB on 12/23/2017 due to deep ulceration of distal esophagus and gastritis on EGD 12/26/2017. No e/o H. pylori - h/o possible appendicitis on CT on 11/22/2017, Pt took ertapenem (11/24/2017- 12/01/2017) - h/o extensive adhesions lower abdominal and pelvis between small bowel to each other and to colon and to abdominal wall, anterior pelvic wall chronic abscess secondary to probably an old perforated diverticulitis, torsion of small bowel around these dense adhesion causing multiple obstructive points - h/o laparoscopic exploration and extensive lysis of adhesions and drainage of anterior pelvic wall abscess 09/16/2017. Cultures were negative, no e/o malignancy. Pt took pip/tazo (09/16/2017-09/26/2017) - h/o EGD and exchange of PEG on 09/01/2017 - h/o partial obstruction mid jejunum in L anterior central pelvis with suggestion of a 3 cm soft tissue mass on CT 08/28/2017 - h/o internal stomal deep ulcer behind the internal bumper, gastritis and esophagitis, Rodriguez's cannot be ruled out, per EGD with biopsy 07/23/2017 - h/o GIB s/p flex sig showed polyp; stool OB negative on 06/29/17 - h/o stool OB positive status - h/o SBO and ileus due to pain meds - h/o mildly elevated CEA # renal/ - s/p recurrent UTI due to pseudomonas (culture on 07/09/2018)-->Garza catheter was replaced on 07/14/2018 - s/p UTI due to MDR, CRE-klebsiella on 06/15/2018. S/p renally dosed amikacin for klebsiella in her urine culture (06/17-06/22/2018) - s/p UTI due to pseudomonas and ESBL+klebsiella on 06/09/2018, Pt took one dose of fosfomycin on 06/10/2018 and cipro 06/12-06/15/2018 - anasarca - started on HD on 05/15/2018, via Juan in R groin - recurrent NATHAN on CKD - 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 Her strain of CRE was sensitive to colistin, Avycaz, and Vabomere but resistant to Zerbaxa (reported on 05/19/2018) - metabolic acidosis - adrenal insufficiency - h/o vaginal bleed in 2018 - h/o colonization of urinary tract by ESBL+klebsiella, VRE - h/o recurrent, symptomatic UTI due to carbapenem-resistant kleb (MDR strain) per urine culture 10/04/17, 10/09/17, 10/21/2017, P took colistin (10/09/2017- 10/15/2017), fosfomycin for carbapenemase-producing klebsiella and VRE on 10/25/2017 and 10/28/2017 - h/o funguria - h/o urinary retention # bloodstream infections - Bacteremia d/t pseudomonas aeruginosa 07/09/18, 07/10/18, 07/11/18, 07/12/18, 07/13/18, 07/15/18, 07/17/18. This is associated with PICC because the blood culture from PICC and phlebotomy on 07/13/2018 both grew the same bacteria. 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 improved. Probable manifestation of endocarditis. Pt declined MRI on 08/06/2017 - h/o infection of R toes due to pseudomonas. coagulase negative Staph likely a colonizer - h/o intertrigo of the groin, resolved with nystatin powder - h/o scabies, locally crusted lesion over L scapula, s/p permethrin cream and pGT ivermectin on 08/11/2017, 08/12/2017, 08/19/2017. Repeat skin scraping on 08/21/2017 was negative for scabies # psych, neuro - chronic toxic metabolic encephalopathy, progressing - decreased hearing b/l - h/o critical illness polyneuropathy - anxiety/depression, bipolar d/o, seen by Psychiatry in the past - chronic pain syndrome - h/o medical non-compliance: she would refuse her medications, treatment and straight catheterization in 2018 # hematological, vascular - chronic anemia requiring blood transfusion intermittently - macrocytic anemia - aneurysmal dilatation of the distal aorta visualized on CT 06/15/2018 - PVD Recommendations: - continue amikacin IV (07/09/2018-). Pt had a strain of pseudomonas that was resistant to all except for aminoglycoside - continue renally dosed cefepime (07/14/2018-); Pt needs double coverage because amikacin alone has not cleared her bacteremia. Some strains of pseudomonas she had were pansensitive while other strains of pseudomonas were resistant to many antibiotics (MDR) - pt will require a prolonged course of abx given likely vegetation on 2D echo; plan for 6 weeks - okay to place PICC line from ID standpoint for prolonged IV abx - continue vancomycin pGT (07/09/18/ - ) because Pt continues to have multiple BMs as a result of taking anti-pseudomonal antibiotics. Pt completed IV metro nidazole (07/09/18-07/15/18) - we recommend neuro consult as Pt has progressive chronic toxic metabolic encephalopathy - consider goals of continued aggressive care; overall prognosis appears poor especially in light of recent echo findings Management d/w JAYANT Velasco and with Dr. Doyle Consultation Date/Type/Reason Admit Date/Time May 06, 2018 at 17:38 Initial Consult Date 05/07/18 Type of Consult Infectious Disease Requesting Provider: ROLAND GIRON MD Date/Time of Note DATE: 07/23/18 TIME: 18:48 24 HR Interval Summary Free Text/Dictation Remains afebrile. Pt had 2 soft BM's today. No acute issues per d/w nursing. Subjective hx not possible: pt non-verbal Exam/Review of Systems Exam Vitals Vital Signs Date Temp Pulse Resp B/P (MAP) Pulse Ox O2 O2 Flow FiO2 Time Delivery Rate 07/23/18 66 21 100 30 17:07 07/23/18 98.0 145/72 Trach 15:30 (96) Collar Intake and Output 07/22/18 07/22/18 07/23/18 1515:00 23:00 07:00 IntakeIntake Total 790 ml OutputOutput Total 500 ml 600 ml BalanceBalance -500 ml 190 ml Exam Constitutional: well developed, frail, obese, other (chronically debilitated) Psych: other (unable to assess d/t lethargy) Head: normocephalic, atraumatic Eyes: nl conjunctiva, nl lids, nl sclera ENMT: nl external ears & nose, nl nasal mucosa & septum, other (unable to examine OP) Neck: non-tender, other (trach is midline and connected to ventilator support) Respiratory: diminished breath sounds, other (coarse breath sounds); No wheezing Cardiovascular: regular rate and rhythm, edema Gastrointestinal: soft, tender (nonspecific; no guarding; G-tube intact and RN is giving medication via GT) Genitourinary - Female: other (Garza in place) Musculoskeletal: muscle weakness Extremities: normal pulses, edema, other (bilateral foot drop) Neurological: lethargic, other (eyes open, rarely tracking; no commands) Skin: ecchymosis, other (R foot and L [place] wrapped with Kerlix c/d/i) Results Result Diagram: 07/23/1825 07/23/18 0725 Results 24hrs Laboratory Tests Test 07/23/18 07:25 White Blood Count 9.7 Red Blood Count 2.80 L Hemoglobin 9.1 L Hematocrit 29.9 L Mean Corpuscular Volume 106.8 H Mean Corpuscular Hemoglobin 32.5 Mean Corpuscular Hemoglobin Concent 30.4 L Red Cell Distribution Width 21.9 H Platelet Count 284 Mean Platelet Volume 10.7 H Immature Granulocytes % 0.400 Neutrophils % 83.3 H Lymphocytes % 8.5 L Monocytes % 5.6 Eosinophils % 2.0 Basophils % 0.2 Nucleated Red Blood Cells % 0.0 Immature Granulocytes # 0.040 H Neutrophils # 8.1 H Lymphocytes # 0.8 Monocytes # 0.6 Eosinophils # 0.2 Basophils # 0.0 Nucleated Red Blood Cells # 0.0 Sodium Level 141 Potassium Level 3.8 Chloride Level 99 Carbon Dioxide Level 31 Anion Gap 11 Blood Urea Nitrogen 101 H Creatinine 2.30 H Est Glomerular Filtrat Rate mL/min Glucose Level 133 Calcium Level 9.6 Phosphorus Level 3.6 Magnesium Level 1.7 Imaging Imaging 2D echo 07/15/2018: Conclusions: Normal left ventricular systolic function. Normal left ventricular cavity size. Normal left ventricular wall thickness. Ejection fraction is visually estimated at 60 %. Tissue Doppler/Mitral Doppler indices are consistent with pseudonormalization with mildly elevated left atrial pressure (Stage II diastolic dysfunction). Normal right ventricular size. Normal right ventricular systolic function. There is mild enlargement of left atrium. The right atrium is normal in size. Mild mitral leaflet calcification. Echodense structure in posterior leafleat region, differential includes calcification vs vegetation. Moderate mitral annular calcification. Moderate mitral valve regurgitation. No significant aortic stenosis or insufficiency. The estimated Peak RVSP is 47 mmHg. There is mild tricuspid regurgitation. Normal pericardium with no significant pericardial effusion. Medications Medication Current Medications IV Flush (NS 10 ml) 10 ml PRN IV ; Start 05/06/18 at 20:30 Zinc Sulfate (Zinc Sulfate) 220 mg DAILY GTB Last administered on 07/23/18 09:36; Admin Dose 220 MG; Start 05/07/18 at 09:00 Ondansetron HCl (Zofran Tab) 4 mg Q6H PRN GTB NAUSEA AND/OR VOMITING Last administered on 05/31/18 16:47; Admin Dose 4 MG; Start 05/07/18 at 00:15 Multivitamins (Multivitamin) 30 ml DAILY GTB Last administered on 07/23/18 09:35; Admin Dose 30 ML; Start 05/07/18 at 09:00 Miscellaneous Information (Pending Santyl Order For Wound Care) This patient goldman... PRN PRN XX WOUND CARE; Start 05/09/18 at 17:00 Acetaminophen (Tylenol Tab) 650 mg Q4H PRN PO MILD PAIN(1-3)OR ELEVATED TEMP Last administered on 07/16/18 00:42; Admin Dose 650 MG; Start 05/31/18 at 13:00 Collagenase (Santyl) 1 applic DAILY TOP Last administered on 07/23/18 09:35; Admin Dose 1 APPLIC; Start 06/01/18 at 09:00 Clonidine (Catapres) 0.1 mg Q6H PRN PO ELEVATED BLOOD PRESSURE Last administered on 07/09/18 09:08; Admin Dose 0.1 MG; Start 06/03/18 at 03:30 Bumetanide (Bumex) 1 mg BID DIURETICS GTB Last administered on 07/23/18 18:45; Admin Dose 1 MG; Start 06/11/18 at 18:00 Miscellaneous Information 1 ea NOTE XX ; Start 06/26/18 at 08:00 Dicyclomine HCl (Bentyl) 20 mg Q8 PO Last administered on 07/23/18 15:19; Admin Dose 20 MG; Start 06/27/18 at 22:00 Cholestyramine Resin (Questran Light) 4 gm 0600,1200,1800,2300 GTB Last admin istered on 07/23/18 18:45; Admin Dose 4 GM; Start 06/27/18 at 18:00 Lorazepam (Ativan) 0.5 mg Q4 PRN IV ANXIETY Last administered on 07/21/18 22:46; Admin Dose 0.5 MG; Start 07/01/18 at 14:00 Metoprolol Tartrate (Lopressor) 50 mg Q8 GTB Last administered on 07/23/18 15:20; Admin Dose 50 MG; Start 07/05/18 at 22:00 Amikacin Sulfate (Amikacin Iv Per Pharmacy) 1 ea NOTE XX ; Start 07/09/18 at 17:30 Vancomycin HCl (Vancomycin Oral Syringe) 125 mg Q6 GTB Last administered on 07/23/18 18:45; Admin Dose 125 MG; Start 07/09/18 at 18:00 Epoetin Zen-epbx (Retacrit (Non-Esrd)) 10,000 unit MoWeFr@1700 SC Last administered on 07/22/18 18:19; Admin Dose 10,000 UNIT; Start 07/13/18 at 17:00 Cefepime HCl 50 ml @ 100 mls/hr Q24H IVPB Last administered on 07/23/18 18:45; Admin Dose 100 MLS/HR; Start 07/14/18 at 18:30 Albuterol/ Ipratropium (Duoneb) 3 ml Q2H RESP THERAPY PRN HHN WHEEZING Last administered on 07/21/18at 23:06; Admin Dose 3 ML; Start 07/21/18 at 22:00 Amiodarone HCl (Cordarone) 200 mg BID GTB Last administered on 07/23/18at 09:35; Admin Dose 200 MG; Start 07/22/18 at 21:00 Amikacin Sulfate 300 mg/Dextrose 101.2 ml @ 102 mls/hr Q72H IVPB ; Start 07/24/18 at 23:00 Citric Acid/ Sodium Citrate (Bicitra) 60 ml DAILY PO Last administered on 07/23/18at 09:36; Admin Dose 60 ML; Start 07/23/18 at 09:00 LAURA JOSHI NP Jul 23, 2018 18:53
[2018-07-24] VITALS (24 sets, daily range): BP systolic 132–164; BP diastolic 63–89; PULSE 63–74; RESP 16–26
[2018-07-24] MEDS ORDERED: VANCOMYCIN IV PER PHARMACY XX SCH
[2018-07-24] MEDS: CHOLESTYRAMINE (LIGHT) 4 GM PACKET GTB SCH ×4 (05:09→23:28)
[2018-07-24] MEDS: BUMETANIDE 1 MG TAB GTB SCH ×2 (05:09→17:52)
[2018-07-24] MEDS: DICYCLOMINE 10 MG CAP PO SCH ×3 (05:09→21:12)
[2018-07-24] MEDS: VANCOMYCIN HCL 250 MG/5ML POSYG GTB SCH ×3 (05:09→17:52)
[2018-07-24] MEDS: METOPROLOL 50 MG TAB GTB SCH ×3 (05:10→21:12)
--- NOTE | 2018-07-24 05:27 | PN ---
Date/Time of Note Date/Time of Note DATE: 07/24/18 TIME: 05:27 Assessment/Plan VTE Prophylaxis Risk score (from [facility])>0 risk: 8 SCD applied (from [facility]): No SCD contraindicated: other Pharmacological prophylaxis: other Pharm contraindication: other Lines/Catheters IV Catheter Type (from [facility]): Saline Lock Urinary Cath still in place: Yes Reason Cath still needed: urinary retention Assessment/Plan Assessment/Plan - Altered mental status-less responsive. DW Dr Mckeon- AMA may be possibly 2/2 to uremia; and he will talk to patient family regarding possibly starting HD. - will get CT brain - fu results - monitor renal functions - neurology consult appreciated -Persistent leukocytosis with Pseudomonas bacteremia 2 to PICC line infection, continue antibiotics per ID. - Dr. Doyle is following in infection disease consultation. 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 TTE 07/16/18 with notion of echodense str ucture on the mitral valve, calcification vs vegetation. - Dr. Scanlon is following in cardiology consultation. - patient needs IV cefepime and amikacin for treatment of bacteremia and pr esumed endocarditis for 5 weeks until 08/22/2018 per ID recommendations. -MDR Klebsiella urinary tract infection, completed treatment with amikacin. -Atrial fibrillation was rapid ventricular response, patient remains in sinus rhythm continue metoprolol and amiodarone. -S/p septic shock secondary to urinary tract infection, anterior neck soft tissue infection, and C. difficile colitis. -C-diff colitis,resolved. -Acute respiratory failure requiring intubation and ventilatory support. Dr. Lambert is following in pulmonology consultation. -S/p tracheostomy on 05/29/18. -Acute kidney injury on chronic kidney disease. Started on HD this admission with recovery of renal function. - Dr. Mckeon is following in nephrology consultation. -Anemia of chronic inflammation, stool for OB is negative, status post blood transfusion. Continue Epogen. -Metabolic acidosis, resolved. -Acute diastolic congestive heart failure. -Paroxysmal atrial fibrillation -COPD -Dysphagia with PEG. -G-tube mild malfunction, changed by GI Dr. Carolina is following in gastroenterology consultation. -Obesity -Critical care myopathy Further recommendations based on clinical course. Plan of care discussed with Dr. Eisenberg. Result Diagram: 07/23/18 0725 07/23/18 0725 Results 24hrs Laboratory Tests Test 07/23/18 07:25 White Blood Count 9.7 Red Blood Count 2.80 L Hemoglobin 9.1 L Hematocrit 29.9 L Mean Corpuscular Volume 106.8 H Mean Corpuscular Hemoglobin 32.5 Mean Corpuscular Hemoglobin Concent 30.4 L Red Cell Distribution Width 21.9 H Platelet Count 284 Mean Platelet Volume 10.7 H Immature Granulocytes % 0.400 Neutrophils % 83.3 H Lymphocytes % 8.5 L Monocytes % 5.6 Eosinophils % 2.0 Basophils % 0.2 Nucleated Red Blood Cells % 0.0 Immature Granulocytes # 0.040 H Neutrophils # 8.1 H Lymphocytes # 0.8 Monocytes # 0.6 Eosinophils # 0.2 Basophils # 0.0 Nucleated Red Blood Cells # 0.0 Sodium Level 141 Potassium Level 3.8 Chloride Level 99 Carbon Dioxide Level 31 Anion Gap 11 Blood Urea Nitrogen 101 H Creatinine 2.30 H Est Glomerular Filtrat Rate mL/min Glucose Level 133 Calcium Level 9.6 Phosphorus Level 3.6 Magnesium Level 1.7 Subjective 24 Hr Interval Summary Free Text/Dictation nad patient is alert/awake - less responsive per staff- will do CT brain for any altered mental status dw staff Exam/Review of Systems Exam Vitals Vital Signs Date Temp Pulse Resp B/P (MAP) Pulse Ox O2 O2 Flow FiO2 Time Delivery Rate 07/24/18 75 24 98 30 05:11 07/24/18 98.6 158/83 Mechanical 04:13 (108) Ventilator Intake and Output 07/23/18 07/23/18 07/24/18 1515:00 23:00 07:00 IntakeIntake Total 780 ml OutputOutput Total 800 ml BalanceBalance -20 ml Constitutional: alert, non-verbal Psych: nl mood/affect Head: normocephalic Eyes: nl lids, nl sclera ENMT: nl external ears & nose Neck: non-tender Respiratory: clear to auscultation Cardiovascular: nl pulses, other (s1s2) Gastrointestinal: soft, other (gt intact) Musculoskeletal: muscle weakness Neurological: confused Skin: other Results Results 24hrs Laboratory Tests Test 07/23/18 07:25 White Blood Count 9.7 Red Blood Count 2.80 L Hemoglobin 9.1 L Hematocrit 29.9 L Mean Corpuscular Volume 106.8 H Mean Corpuscular Hemoglobin 32.5 Mean Corpuscular Hemoglobin Concent 30.4 L Red Cell Distribution Width 21.9 H Platelet Count 284 Mean Platelet Volume 10.7 H Immature Granulocytes % 0.400 Neutrophils % 83.3 H Lymphocytes % 8.5 L Monocytes % 5.6 Eosinophils % 2.0 Basophils % 0.2 Nucleated Red Blood Cells % 0.0 Immature Granulocytes # 0.040 H Neutrophils # 8.1 H Lymphocytes # 0.8 Monocytes # 0.6 Eosinophils # 0.2 Basophils # 0.0 Nucleated Red Blood Cells # 0.0 Sodium Level 141 Potassium Level 3.8 Chloride Level 99 Carbon Dioxide Level 31 Anion Gap 11 Blood Urea Nitrogen 101 H Creatinine 2.30 H Est Glomerular Filtrat Rate mL/min Glucose Level 133 Calcium Level 9.6 Phosphorus Level 3.6 Magnesium Level 1.7 Medications Medication Current Medications IV Flush (NS 10 ml) 10 ml PRN IV ; Start 05/06/18 at 20:30 Zinc Sulfate (Zinc Sulfate) 220 mg DAILY GTB Last administered on 07/23/18 09:36; Admin Dose 220 MG; Start 05/07/18 at 09:00 Ondansetron HCl (Zofran Tab) 4 mg Q6H PRN GTB NAUSEA AND/OR VOMITING Last administered on 05/31/18 16:47; Admin Dose 4 MG; Start 05/07/18 at 00:15 Multivitamins (Multivitamin) 30 ml DAILY GTB Last administered on 07/23/18 0 9:35; Admin Dose 30 ML; Start 05/07/18 at 09:00 Miscellaneous Information (Pending Santyl Order For Wound Care) This patient goldman... PRN PRN XX WOUND CARE; Start 05/09/18 at 17:00 Acetaminophen (Tylenol Tab) 650 mg Q4H PRN PO MILD PAIN(1-3)OR ELEVATED TEMP Last administered on 07/16/18 00:42; Admin Dose 650 MG; Start 05/31/18 at 13:00 Collagenase (Santyl) 1 applic DAILY TOP Last administered on 07/23/18 09:35; Admin Dose 1 APPLIC; Start 06/01/18 at 09:00 Clonidine (Catapres) 0.1 mg Q6H PRN PO ELEVATED BLOOD PRESSURE Last administered on 07/09/18 09:08; Admin Dose 0.1 MG; Start 06/03/18 at 03:30 Bumetanide (Bumex) 1 mg BID DIURETICS GTB Last administered on 07/24/18 05:09; Admin Dose 1 MG; Start 06/11/18 at 18:00 Miscellaneous Information 1 ea NOTE XX ; Start 06/26/18 at 08:00 Dicyclomine HCl (Bentyl) 20 mg Q8 PO Last administered on 07/24/18 05:09; Admin Dose 20 MG; Start 06/27/18 at 22:00 Cholestyramine Resin (Questran Light) 4 gm 0600,1200,1800,2300 GTB Last administered on 07/24/18 05:09; Admin Dose 4 GM; Start 06/27/18 at 18:00 Lorazepam (Ativan) 0.5 mg Q4 PRN IV ANXIETY Last administered on 07/21/18 22:46; Admin Dose 0.5 MG; Start 07/01/18 at 14:00 Metoprolol Tartrate (Lopressor) 50 mg Q8 GTB Last administered on 07/24/18 05:10; Admin Dose 50 MG; Start 07/05/18 at 22:00 Amikacin Sulfate (Amikacin Iv Per Pharmacy) 1 ea NOTE XX ; Start 07/09/18 at 17:30 Vancomycin HCl (Vancomycin Oral Syringe) 125 mg Q6 GTB Last administered on 07/24/18 05:09; Admin Dose 125 MG; Start 07/09/18 at 18:00 Epoetin Zen-epbx (Retacrit (Non-Esrd)) 10,000 unit MoWeFr@1700 SC Last ad ministered on 07/22/18 18:19; Admin Dose 10,000 UNIT; Start 07/13/18 at 17:00 Cefepime HCl 50 ml @ 100 mls/hr Q24H IVPB Last administered on 07/23/18 18:45; Admin Dose 100 MLS/HR; Start 07/14/18 at 18:30 Albuterol/ Ipratropium (Duoneb) 3 ml Q2H RESP THERAPY PRN HHN WHEEZING Last administered on 07/21/18 23:06; Admin Dose 3 ML; Start 07/21/18 at 22:00 Amiodarone HCl (Cordarone) 200 mg BID GTB Last administered on 6/6/19at 21:58; Admin Dose 200 MG; Start 07/22/18 at 21:00 Amikacin Sulfate 300 mg/Dextrose 101.2 ml @ 102 mls/hr Q72H IVPB ; Start 07/24/18 at 23:00 Citric Acid/ Sodium Citrate (Bicitra) 60 ml DAILY PO Last administered on 07/23/18at 09:36; Admin Dose 60 ML; Start 07/23/18 at 09:00 KERON MORAN Jul 24, 2018 05:27
[2018-07-24] MEDS: COLLAGENASE 5 GM (UD JAR) TOP SCH (08:39)
[2018-07-24] MEDS: AMIODARONE 200 MG TAB GTB SCH ×2 (08:40→21:12)
[2018-07-24] MEDS: ZINC SULFATE 220 MG CAP GTB SCH (08:40)
[2018-07-24] MEDS: CITRIC ACID/NA CITRATE 30 ML CUP PO SCH (08:40)
[2018-07-24] MEDS: MULTIVITAMINS 30 ML CUP GTB SCH (08:40)
[2018-07-24] MEDS: BALSAM PERU/CASTOR OIL 60 GM TUBE TOP SCH ×2 (08:43→21:13)
[2018-07-24] MEDS ORDERED: CEFEPIME 2GM/50 ML (PMX) 50 ML IVPB SCH (09:00)
--- NOTE | 2018-07-24 10:47 | CONS ---
Assessment/Plan Assessment/Plan Hospital Course (Demo Recall) # sepsis, leukocytosis, SIRS, pulmonary, cardiac - recurrent leukocytosis due to bacteremia (below), improved - s/p septic shock due to pneumonia and C diff colitis - acute on chronic hypoxic respiratory failure, persistent - s/p reintubation 05/12/2018 - s/p re-do trach on 05/29/2018 - recurrent colonization of the anterior neck wound with ESBL+kleb, MRSA, GBS, corynebacteria on 05/06/2018 - h/o pneumonia vs. colonization of the airway by pseudomonas and ESBL+klebsiella - h/o possible, recurrent HCAP due to pseudomonas and ESBL+klebsiella - h/o recurrent HCAP due to MRSA and Enterobacter (culture of tracheal aspirate on 07/16/2017 that was collected at [facility]) . Pt took vancomycin and ceftazidime - h/o decannulation prior to admission - h/o tracheostomy on 06/11/2017 - h/o SIRS from UGIB in 2018 - h/o thoracentesis on 07/18/2017, transudative (protein <2, LDH 279) - h/o bleeding from the trach site in 2018 - h/o septic shock due to pneumonia, ARDS, bacteremia, fungemia in 2018 - h/o ARDS in 2018 - h/o smoking - COPD - h/o ILD per medical record - h/o PAF, improved - echodense structure in posterior leafleat region, differential includes calcification vs vegetation per 2D echo 07/15/2018 # GI - s/p possible ileus or enterocolitis on CT abd/pel 06/15/2018-->follow up CT on 07/15/2018 showed no evidence of urolithiasis, obstructive uropathy or diverticulitis; it showed small to moderate ascites - C diff colitis, diagnosed on 05/11/2018. Pt is on pGT vancomycin (05/11/2018-); Pt previously took IV metronidazole (05/11/2018-05/29/2018; restart 05/30/2018- 06/05/18) too - Pt had multiple negative C. diff tests at [facility] and at [facility]SH in the past; none was positive until 05/11/2018 - dysphagia - h/o PEG placement 06/13/2018 - protein calorie malnutrition - h/o coffee ground emesis/UGIB on 12/23/2017 due to deep ulceration of distal esophagus and gastritis on EGD 12/26/2017. No e/o H. pylori - h/o possible appendicitis on CT on 11/22/2017, Pt took ertapenem (11/24/2017- 12/01/2017) - h/o extensive adhesions lower abdominal and pelvis between small bowel to each other and to colon and to abdominal wall, anterior pelvic wall chronic abscess secondary to probably an old perforated diverticulitis, torsion of small bowel around these dense adhesion causing multiple obstructive points - h/o laparoscopic exploration and extensive lysis of adhesions and drainage of anterior pelvic wall abscess 09/16/2017. Cultures were negative, no e/o malignancy. Pt took pip/tazo (09/16/2017-09/26/2017) - h/o EGD and exchange of PEG on 09/01/2017 - h/o partial obstruction mid jejunum in L anterior central pelvis with suggestion of a 3 cm soft tissue mass on CT 08/28/2017 - h/o internal stomal deep ulcer behind the internal bumper, gastritis and esophagitis, Rodriguez's cannot be ruled out, per EGD with biopsy 07/23/2017 - h/o GIB s/p flex sig showed polyp; stool OB negative on 06/29/17 - h/o stool OB positive status - h/o SBO and ileus due to pain meds - h/o mildly elevated CEA # renal/ - s/p recurrent UTI due to pseudomonas (culture on 07/09/2018)-->Garza catheter was replaced on 07/14/2018 - s/p UTI due to MDR, CRE-klebsiella on 06/15/2018. S/p renally dosed amikacin for klebsiella in her urine culture (06/17-06/22/2018) - s/p UTI due to pseudomonas and ESBL+klebsiella on 06/09/2018, Pt took one dose of fosfomycin on 06/10/2018 and cipro 06/12-06/15/2018 - anasarca - started on HD on 05/15/2018, via Juan in R groin - recurrent NATHAN on CKD - 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 Her strain of CRE was sensitive to colistin, Avycaz, and Vabomere but resistant to Zerbaxa (reported on 05/19/2018) - metabolic acidosis - adrenal insufficiency - h/o vaginal bleed in 2018 - h/o colonization of urinary tract by ESBL+klebsiella, VRE - h/o recurrent, symptomatic UTI due to carbapenem-resistant kleb (MDR strain) per urine culture 10/04/17, 10/09/17, 10/21/2017, P took colistin (10/09/2017- 10/15/2017), fosfomycin for carbapenemase-producing klebsiella and VRE on 10/25/2017 and 10/28/2017 - h/o funguria - h/o urinary retention # bloodstream infections - Bacteremia d/t pseudomonas aeruginosa 07/09/18, 07/10/18, 07/11/18, 07/12/18, 07/13/18, 07/15/18, 07/17/18. This is associated with PICC because the blood culture from PICC and phlebotomy on 07/13/2018 both grew the same bacteria. 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 improved. Probable manifestation of endocarditis. Pt declined MRI on 08/06/2017 - h/o infection of R toes due to pseudomonas. coagulase negative Staph likely a colonizer - h/o intertrigo of the groin, resolved with nystatin powder - h/o scabies, locally crusted lesion over L scapula, s/p permethrin cream and pGT ivermectin on 08/11/2017, 08/12/2017, 08/19/2017. Repeat skin scraping on 08/21/2017 was negative for scabies # psych, neuro - chronic toxic metabolic encephalopathy, progressing - decreased hearing b/l - h/o critical illness polyneuropathy - anxiety/depression, bipolar d/o, seen by Psychiatry in the past - chronic pain syndrome - h/o medical non-compliance: she would refuse her medications, treatment and straight catheterization in 2018 # hematological, vascular - chronic anemia requiring blood transfusion intermittently - macrocytic anemia - aneurysmal dilatation of the distal aorta visualized on CT 06/15/2018 - PVD Recommendations: - continue amikacin IV (07/09/2018-). Pt had a strain of pseudomonas that was resistant to all except for aminoglycoside - continue renally dosed cefepime (07/14/2018-); Pt needs double coverage because amikacin alone has not cleared her bacteremia. Some strains of pseudomonas she had were pansensitive while other strains of pseudomonas were resistant to many antibiotics (MDR) - pt will require a prolonged course of abx given likely vegetation on 2D echo; plan for 6 weeks - will request Micro to check susceptibility of pseudomonas from blood cx on 07/17/2018 to avycaz, zerbaxa, doripenem and colistin (order placed for AM RN to f/u) - okay to place PICC line from ID standpoint for prolonged IV abx - continue vancomycin pGT (07/09/18/ - ) while on IV abx d/t pt's h/o C. diff. Pt completed IV metronidazole (07/09/18-07/15/18) - we recommend Audiology testing for this pt who will likely require supervisor intermediates aminoglycoside - consider MARCIAL to r/o endocarditis so as to possibly limit pt's course of antibiotics/exposure to nephrotoxic agents. Although it may be difficult to distinguish between an old lesion vs a new lesion. - we recommend neuro consult as Pt has progressive chronic toxic metabolic encephalopathy - monitor CrCl (slow trend up) - consider goals of continued aggressive care; overall prognosis appears poor especially in light of recent echo findings Management d/w JAYANT Rhodes and with Dr. Doyle Consultation Date/Type/Reason Admit Date/Time May 06, 2018 at 17:38 Initial Consult Date 05/07/18 Type of Consult Infectious Disease Requesting Provider: ROLAND GIRON MD Date/Time of Note DATE: 07/24/18 TIME: 10:46 24 HR Interval Summary Free Text/Dictation No acute issues per d/w nursing. Pt had one formed BM today. Subjective hx not possible: pt non-verbal Exam/Review of Systems Exam Vitals Vital Signs Date Temp Pulse Resp B/P (MAP) Pulse Ox O2 O2 Flow FiO2 Time Delivery Rate 07/24/18 67 22 100 30 10:19 07/24/18 97.7 132/63 Trach 07:44 (86) Collar Intake and Output 07/23/18 07/23/18 07/24/18 1515:00 23:00 07:00 IntakeIntake Total 780 ml 830 ml OutputOutput Total 800 ml 700 ml BalanceBalance -20 ml 130 ml Exam Constitutional: well developed, frail, obese, other (chronically debilitated) Psych: other (unable to assess d/t lethargy) Head: normocephalic, atraumatic Eyes: nl conjunctiva, nl lids, nl sclera ENMT: nl external ears & nose, nl nasal mucosa & septum, other (unable to examine OP) Neck: non-tender, other (trach is midline and connected to ventilator support) Respiratory: diminished breath sounds, other (mild coarse breath sounds); No wheezing Cardiovascular: regular rate and rhythm, edema Gastrointestinal: soft, tender (nonspecific; no guarding; G-tube c/d/i) Genitourinary - Female: other (Garza in place) Musculoskeletal: muscle weakness Extremities: normal pulses, edema, other (bilateral foot drop) Neurological: lethargic, other (no commands) Skin: ecchymosis, other (R foot and L [place] wrapped with Kerlix c/d/i) Results Result Diagram: 07/23/18 0725 07/24/18 0856 Results 24hrs Laboratory Tests Test 07/24/18 08:56 Sodium Level 142 Potassium Level 3.7 Chloride Level 100 Carbon Dioxide Level 30 Anion Gap 12 Blood Urea Nitrogen 96 H Creatinine 2.40 H Est Glomerular Filtrat Rate mL/min Glucose Level 124 Calcium Level 9.7 Phosphorus Level 3.4 Magnesium Level 1.8 Medications Medication Current Medications IV Flush (NS 10 ml) 10 ml PRN IV ; Start 05/06/18 at 20:30 Zinc Sulfate (Zinc Sulfate) 220 mg DAILY GTB Last administered on 07/24/18 08:40; Admin Dose 220 MG; Start 05/07/18 at 09:00 Ondansetron HCl (Zofran Tab) 4 mg Q6H PRN GTB NAUSEA AND/OR VOMITING Last administered on 05/31/18 16:47; Admin Dose 4 MG; Start 05/07/18 at 00:15 Multivitamins (Multivitamin) 30 ml DAILY GTB Last administered on 07/24/18 08:40; Admin Dose 30 ML; Start 05/07/18 at 09:00 Miscellaneous Information (Pending Santyl Order For Wound Care) This patient goldman... PRN PRN XX WOUND CARE; Start 05/09/18 at 17:00 Acetaminophen (Tylenol Tab) 650 mg Q4H PRN PO MILD PAIN(1-3)OR ELEVATED TEMP Last administered on 07/16/18 00:42; Admin Dose 650 MG; Start 05/31/18 at 13:00 Collagenase (Santyl) 1 applic DAILY TOP Last administered on 07/24/18 08:39; Admin Dose 1 APPLIC; Start 06/01/18 at 09:00 Clonidine (Catapres) 0.1 mg Q6H PRN PO ELEVATED BLOOD PRESSURE Last administered on 07/09/18 09:08; Admin Dose 0.1 MG; Start 06/03/18 at 03:30 Bumetanide (Bumex) 1 mg BID DIURETICS GTB Last administered on 07/24/18 05:09; Admin Dose 1 MG; Start 06/11/18 at 18:00 Miscellaneous Information 1 ea NOTE XX ; Start 06/26/18 at 08:00 Dicyclomine HCl (Bentyl) 20 mg Q8 PO Last administered on 07/24/18 05:09; Admin Dose 20 MG; Start 06/27/18 at 22:00 Cholestyramine Resin (Questran Light) 4 gm 0600,1200,1800,2300 GTB Last administered on 07/24/18 05:09; Admin Dose 4 GM; Start 06/27/18 at 18:00 Lorazepam (Ativan) 0.5 mg Q4 PRN IV ANXIETY Last administered on 07/21/18 22:46; Admin Dose 0.5 MG; Start 07/01/18 at 14:00 Metoprolol Tartrate (Lopressor) 50 mg Q8 GTB Last administered on 07/24/18 05:10; Admin Dose 50 MG; Start 07/05/18 at 22:00 Amikacin Sulfate (Amikacin Iv Per Pharmacy) 1 ea NOTE XX ; Start 07/09/18 at 17:30 Vancomycin HCl (Vancomycin Oral Syringe) 125 mg Q6 GTB Last administered on 07/24/18 05:09; Admin Dose 125 MG; Start 07/09/18 at 18:00 Epoetin Zen-epbx (Retacrit (Non-Esrd)) 10,000 unit MoWeFr@1700 SC Last administered on 07/22/18 18:19; Admin Dose 10,000 UNIT; Start 07/13/18 at 17:00 Cefepime HCl 50 ml @ 100 mls/hr Q24H IVPB Last administered on 07/23/18 18:45; Admin Dose 100 MLS/HR; Start 07/14/18 at 18:30 Albuterol/ Ipratropium (Duoneb) 3 ml Q2H RESP THERAPY PRN HHN WHEEZING Last administered on 07/21/18 23:06; Admin Dose 3 ML; Start 07/21/18 at 22:00 Amiodarone HCl (Cordarone) 200 mg BID GTB Last administered on 07/24/18 08:40; Admin Dose 200 MG; Start 07/22/18 at 21:00 Amikacin Sulfate 300 mg/Dextrose 101.2 ml @ 102 mls/hr Q72H IVPB ; Start 07/24/18 at 23:00 Citric Acid/ Sodium Citrate (Bicitra) 60 ml DAILY PO Last administered on 07/24/18 08:40; Admin Dose 60 ML; Start 07/23/18 at 09:00 LAURA JOSHI NP Jul 24, 2018 10:47
--- NOTE | 2018-07-24 13:39 | CONS ---
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 Continue beta-tin as tolerated -Patient with paroxysmal atrial fibrillation, currently in sinus rhythm -Continue amiodarone and decrease to twice daily -Vent management as per pulmonary -Fluid management and electrolytes as per renal -No anticoagulation given recurrent anemia requiring blood transfusions Consultation Date/Type/Reason Admit Date/Time May 06, 2018 at 17:38 Initial Consult Date 05/10/18 Type of Consult Cardiology Requesting Provider: ROLAND GIRON MD Date/Time of Note DATE: 07/24/18 TIME: 13:39 24 HR Interval Summary Free Text/Dictation Patient seen and examined Exam/Review of Systems Vital Signs Vitals Vital Signs Date Temp Pulse Resp B/P (MAP) Pulse Ox O2 O2 Flow FiO2 Time Delivery Rate 07/24/18 73 13:22 07/24/18 97.8 22 155/76 99 Trach 11:13 (102) Collar 07/24/18 30 11:06 Intake and Output 07/23/18 07/23/18 07/24/18 1515:00 23:00 07:00 IntakeIntake Total 780 ml 830 ml OutputOutput Total 800 ml 700 ml BalanceBalance -20 ml 130 ml Exam Constitutional: alert (Looks at me when her name is called but not following commands) Head: normocephalic Respiratory: other (Coarse breath sounds bilaterally, no wheezing) Cardiovascular: regular rate and rhythm (S1-S2 heard) Gastrointestinal: soft, non-tender, bowel sounds Extremities: edema Labs Result Diagram: 07/23/18 0725 07/24/18 0856 Results 24hrs Laboratory Tests Test 07/24/18 08:56 Sodium Level 142 Potassium Level 3.7 Chloride Level 100 Carbon Dioxide Level 30 Anion Gap 12 Blood Urea Nitrogen 96 H Creatinine 2.40 H Est Glomerular Filtrat Rate mL/min Glucose Level 124 Calcium Level 9.7 Phosphorus Level 3.4 Magnesium Level 1.8 Medications Medications Current Medications IV Flush (NS 10 ml) 10 ml PRN IV ; Start 05/06/18 at 20:30 Zinc Sulfate (Zinc Sulfate) 220 mg DAILY GTB Last administered on 07/24/18 08:40; Admin Dose 220 MG; Start 05/07/18 at 09:00 Ondansetron HCl (Zofran Tab) 4 mg Q6H PRN GTB NAUSEA AND/OR VOMITING Last administered on 05/31/18 16:47; Admin Dose 4 MG; Start 05/07/18 at 00:15 Multivitamins (Multivitamin) 30 ml DAILY GTB Last administered on 07/24/18 08:40; Admin Dose 30 ML; Start 05/07/18 at 09:00 Miscellaneous Information (Pending Santyl Order For Wound Care) This patient goldman... PRN PRN XX WOUND CARE; Start 05/09/18 at 17:00 Acetaminophen (Tylenol Tab) 650 mg Q4H PRN PO MILD PAIN(1-3)OR ELEVATED TEMP Last administered on 07/16/18 00:42; Admin Dose 650 MG; Start 05/31/18 at 13:00 Collagenase (Santyl) 1 applic DAILY TOP Last administered on 07/24/18 08:39; Admin Dose 1 APPLIC; Start 06/01/18 at 09:00 Clonidine (Catapres) 0.1 mg Q6H PRN PO ELEVATED BLOOD PRESSURE Last ad ministered on 07/09/18 09:08; Admin Dose 0.1 MG; Start 06/03/18 at 03:30 Bumetanide (Bumex) 1 mg BID DIURETICS GTB Last administered on 07/24/18 05:09; Admin Dose 1 MG; Start 06/11/18 at 18:00 Miscellaneous Information 1 ea NOTE XX ; Start 06/26/18 at 08:00 Dicyclomine HCl (Bentyl) 20 mg Q8 PO Last administered on 07/24/18 13:37; Admin Dose 20 MG; Start 06/27/18 at 22:00 Cholestyramine Resin (Questran Light) 4 gm 0600,1200,1800,2300 GTB Last administered on 07/24/18 11:39; Admin Dose 4 GM; Start 06/27/18 at 18:00 Lorazepam (Ativan) 0.5 mg Q4 PRN IV ANXIETY Last administered on 07/21/18 2 2:46; Admin Dose 0.5 MG; Start 07/01/18 at 14:00 Metoprolol Tartrate (Lopressor) 50 mg Q8 GTB Last administered on 07/24/18 13:38; Admin Dose 50 MG; Start 07/05/18 at 22:00 Amikacin Sulfate (Amikacin Iv Per Pharmacy) 1 ea NOTE XX ; Start 07/09/18 at 17:30 Vancomycin HCl (Vancomycin Oral Syringe) 125 mg Q6 GTB Last administered on 07/24/18at 11:39; Admin Dose 125 MG; Start 07/09/18 at 18:00 Epoetin Zen-epbx (Retacrit (Non-Esrd)) 10,000 unit MoWeFr@1700 SC Last administered on 07/22/18 18:19; Admin Dose 10,000 UNIT; Start 07/13/18 at 17:00 Cefepime HCl 50 ml @ 100 mls/hr Q24H IVPB Last administered on 07/23/18at 18:45; Admin Dose 100 MLS/HR; Start 07/14/18 at 18:30 Albuterol/ Ipratropium (Duoneb) 3 ml Q2H RESP THERAPY PRN HHN WHEEZING Last administered on 07/21/18 23:06; Admin Dose 3 ML; Start 07/21/18 at 22:00 Amiodarone HCl (Cordarone) 200 mg BID GTB Last administered on 07/24/18 08:40; Admin Dose 200 MG; Start 07/22/18 at 21:00 Amikacin Sulfate 300 mg/Dextrose 101.2 ml @ 102 mls/hr Q72H IVPB ; Start 07/24/18 at 23:00 Citric Acid/ Sodium Citrate (Bicitra) 60 ml DAILY PO Last administered on 07/24/18 08:40; Admin Dose 60 ML; Start 07/23/18 at 09:00 Evangelista Scanlon DO Jul 24, 2018 13:39
[2018-07-24] MEDS: CEFEPIME 2GM/50 ML (PMX) 50 ML IVPB SCH (17:51)
[2018-07-24] MEDS: EPOETIN ALFA-EPBX (NON-ESRD 10,000 UNIT/ML VIAL SC SCH (17:53)
[2018-07-24] MEDS ORDERED: AMIKACIN 300 MG in DEXTROSE 5% 100 ML IVPB SCH (23:00)
[2018-07-25] VITALS (23 sets, daily range): BP systolic 124–164; BP diastolic 73–107; PULSE 65–72; RESP 17–22
[2018-07-25] MEDS: VANCOMYCIN HCL 250 MG/5ML POSYG GTB SCH ×5 (00:01→23:51)
[2018-07-25] MEDS: DICYCLOMINE 10 MG CAP PO SCH ×3 (05:46→21:30)
[2018-07-25] MEDS: METOPROLOL 50 MG TAB GTB SCH ×3 (05:46→21:30)
[2018-07-25] MEDS: CHOLESTYRAMINE (LIGHT) 4 GM PACKET GTB SCH ×4 (05:47→23:51)
[2018-07-25] MEDS: BUMETANIDE 1 MG TAB GTB SCH ×2 (05:50→17:47)
--- NOTE | 2018-07-25 09:24 | PN ---
DATE: 07/25/2018 SUBJECTIVE: The patient remains stable, confused. No other events noted. OBJECTIVE: VITAL SIGNS: Blood pressure is 154/82, pulse 68, respirations 20, temperature 97.9. HEENT: Head is normocephalic. NECK: Supple. HEART: Regular rate. LUNGS: Show diminished breath sounds at the base. ABDOMEN: Soft, nontender to palpation without rebound or guarding. EXTREMITIES: Negative for clubbing, cyanosis. Positive edema. DERMATOLOGIC: No rashes. MUSCULOSKELETAL: No joint effusion. NEUROLOGIC: No change in exam. MEDICATIONS: Have been reviewed. LABORATORY DATA: Has been reviewed. ASSESSMENT AND PLAN: 1. Nonoliguric acute kidney injury with previous baseline creatinine 2.0 mg/dL. Etiology of acute k idney injury is secondary to transient ischemic attack. The patient is status post hemodialysis. Th e patient has shown adequate renal recovery. Continue to monitor closely. Patient is currently on d ialysis. Continue current treatment plans, supportive care, renally dose all meds. 2. Hypernatremia, improved. 3. Hyperkalemia, improved. 4. Metabolic acidosis, improved. 5. Volume overload. Continue current diuretic regimen. 6. Anemia, monitor hemoglobin and hematocrit levels. 7. Ventilator dependent respiratory failure. Vent settings have been reviewed. Continue to monitor . 8. Sepsis, endocarditis. The patient is completing antibiotic course. 9. Dysphagia. Continue tube feeding. 10. Encephalopathy, etiology is toxic metabolic. Questionable component of uremia, monitor closely. 11. Lower extremity wounds. Continue wound care. Dictated By: JEANA FINE/NTS Conf#: [id number] DID#: [id number] CC: ROLAND GIRON MD;*EndCC*
[2018-07-25] MEDS: CITRIC ACID/NA CITRATE 30 ML CUP PO SCH (09:50)
[2018-07-25] MEDS: MULTIVITAMINS 30 ML CUP GTB SCH (09:50)
[2018-07-25] MEDS: ZINC SULFATE 220 MG CAP GTB SCH (09:50)
[2018-07-25] MEDS: AMIODARONE 200 MG TAB GTB SCH ×2 (09:50→21:30)
[2018-07-25] MEDS: BALSAM PERU/CASTOR OIL 60 GM TUBE TOP SCH ×2 (09:51→21:29)
[2018-07-25] MEDS: COLLAGENASE 5 GM (UD JAR) TOP SCH (09:51)
--- NOTE | 2018-07-25 12:18 | PN ---
Date/Time of Note Date/Time of Note DATE: 07/25/18 TIME: 12:17 Assessment/Plan VTE Prophylaxis Risk score (from [facility])>0 risk: 5 SCD applied (from [facility]): No SCD contraindicated: other Pharmacological prophylaxis: other Pharm contraindication: other Lines/Catheters IV Catheter Type (from [facility]): Saline Lock Urinary Cath still in place: Yes Reason Cath still needed: urinary retention Assessment/Plan Assessment/Plan - Altered mental status-less responsive. DW Dr Mckeon- AMA may be possibly 2/2 to uremia; and he will talk to patient family regarding possibly starting HD. - will get CT brain - no acute changes - neuro consut appreciated- Dr Mathew notified - monitor renal functions -Persistent leukocytosis with Pseudomonas bacteremia 2 to PICC line infection, continue antibiotics per ID. - Dr. Doyle is following in infection disease consultation. 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 TTE 07/16/18 with notion of echodense structure on the mitral valve, calcification vs vegetation. - Dr. Scanlon is following in cardiology consultation. - patient needs IV cefepime and amikacin for treatment of bacteremia and presumed endocarditis for 5 weeks until 08/22/2018 per ID recommendations. -MDR Klebsiella urinary tract infection, completed treatment with amikacin. -Atrial fibrillation was rapid ventricular response, patient remains in sinus rhythm continue metoprolol and amiodarone. -S/p septic shock secondary to urinary tract infection, anterior neck soft tissue infection, and C. difficile colitis. -C-diff colitis,resolved. -Acute respiratory failure requiring intubation and ventilatory support. Dr. Lambert is following in pulmonology consultation. -S/p tracheostomy on 05/29/18. -Acute kidney injury on chronic kidney disease. Started on HD this admission with recovery of renal function. - Dr. Mckeon is following in nephrology consultation. -Anemia of chronic inflammation, stool for OB is negative, status post blood transfusion. Continue Epogen. -Metabolic acidosis, resolved. -Acute diastolic congestive heart failure. -Paroxysmal atrial fibrillation -COPD -Dysphagia with PEG. -G-tube mild malfunction, changed by GI Dr. Carolina is following in gastroenterology consultation. -Obesity -Critical care myopathy Further recommendations based on clinical course. Plan of care discussed with Dr. Eisenberg. Result Diagram: 07/25/18 0745 07/25/18 0745 Results 24hrs Laboratory Tests Test 07/25/18 07:45 White Blood Count 10.4 Red Blood Count 2.68 L Hemoglobin 8.6 L Hematocrit 28.9 L Mean Corpuscular Volume 107.8 H Mean Corpuscular Hemoglobin 32.1 Mean Corpuscular Hemoglobin Concent 29.8 L Red Cell Distribution Width 22.0 H Platelet Count 260 Mean Platelet Volume 10.9 H Immature Granulocytes % 0.500 H Neutrophils % 82.9 H Lymphocytes % 8.4 L Monocytes % 5.6 Eosinophils % 2.3 Basophils % 0.3 Nucleated Red Blood Cells % 0.0 Immature Granulocytes # 0.050 H Neutrophils # 8.7 H Lymphocytes # 0.9 Monocytes # 0.6 Eosinophils # 0.2 Basophils # 0.0 Nucleated Red Blood Cells # 0.0 Sodium Level 139 Potassium Level 3.6 Chloride Level 100 Carbon Dioxide Level 26 Anion Gap 13 Blood Urea Nitrogen 96 H Creatinine 2.35 H Est Glomerular Filtrat Rate mL/min Glucose Level 112 Calcium Level 9.5 Phosphorus Level 3.4 Magnesium Level 1.8 Exam/Review of Systems Exam Vitals Vital Signs Date Temp Pulse Resp B/P (MAP) Pulse Ox O2 O2 Flow FiO2 Time Delivery Rate 07/25/18 98.5 68 19 144/75 99 11:35 (98) 07/25/18 30 10:04 07/24/18 Trach 15:19 Collar Intake and Output 07/24/18 07/24/18 07/25/18 1515:00 23:00 07:00 IntakeIntake Total 840 ml OutputOutput Total 800 ml BalanceBalance 40 ml Results Results 24hrs Laboratory Tests Test 07/25/18 07:45 White Blood Count 10.4 Red Blood Count 2.68 L Hemoglobin 8.6 L Hematocrit 28.9 L Mean Corpuscular Volume 107.8 H Mean Corpuscular Hemoglobin 32.1 Mean Corpuscular Hemoglobin Concent 29.8 L Red Cell Distribution Width 22.0 H Platelet Count 260 Mean Platelet Volume 10.9 H Immature Granulocytes % 0.500 H Neutrophils % 82.9 H Lymphocytes % 8.4 L Monocytes % 5.6 Eosinophils % 2.3 Basophils % 0.3 Nucleated Red Blood Cells % 0.0 Immature Granulocytes # 0.050 H Neutrophils # 8.7 H Lymphocytes # 0.9 Monocytes # 0.6 Eosinophils # 0.2 Basophils # 0.0 Nucleated Red Blood Cells # 0.0 Sodium Level 139 Potassium Level 3.6 Chloride Level 100 Carbon Dioxide Level 26 Anion Gap 13 Blood Urea Nitrogen 96 H Creatinine 2.35 H Est Glomerular Filtrat Rate mL/min Glucose Level 112 Calcium Level 9.5 Phosphorus Level 3.4 Magnesium Level 1.8 Medications Medication Current Medications IV Flush (NS 10 ml) 10 ml PRN IV ; Start 05/06/18 at 20:30 Zinc Sulfate (Zinc Sulfate) 220 mg DAILY GTB Last administered on 07/25/18 09:50; Admin Dose 220 MG; Start 05/07/18 at 09:00 Ondansetron HCl (Zofran Tab) 4 mg Q6H PRN GTB NAUSEA AND/OR VOMITING Last administered on 05/31/18 16:47; Admin Dose 4 MG; Start 05/07/18 at 00:15 Multivitamins (Multivitamin) 30 ml DAILY GTB Last administered on 07/25/18 09:50; Admin Dose 30 ML; Start 05/07/18 at 09:00 Miscellaneous Information (Pending Santyl Order For Wound Care) This patient goldman... PRN PRN XX WOUND CARE; Start 05/09/18 at 17:00 Acetaminophen (Tylenol Tab) 650 mg Q4H PRN PO MILD PAIN(1-3)OR ELEVATED TEMP Last administered on 07/16/18 00:42; Admin Dose 650 MG; Start 05/31/18 at 13:00 Collagenase (Santyl) 1 applic DAILY TOP Last administered on 07/25/18 09:51; Admin Dose 1 APPLIC; Start 06/01/18 at 09:00 Clonidine (Catapres) 0.1 mg Q6H PRN PO ELEVATED BLOOD PRESSURE Last administered on 07/25/18 01:34; Admin Dose 0.1 MG; Start 06/03/18 at 03:30 Bumetanide (Bumex) 1 mg BID DIURETICS GTB Last administered on 07/25/18 05:50; Admin Dose 1 MG; Start 06/11/18 at 18:00 Miscellaneous Information 1 ea NOTE XX ; Start 06/26/18 at 08:00 Dicyclomine HCl (Bentyl) 20 mg Q8 PO Last administered on 07/25/18 05:46; Admin Dose 20 MG; Start 06/27/18 at 22:00 Cholestyramine Resin (Questran Light) 4 gm 0600,1200,1800,2300 GTB Last administered on 07/25/18 05:47; Admin Dose 4 GM; Start 06/27/18 at 18:00 Lorazepam (Ativan) 0.5 mg Q4 PRN IV ANXIETY Last administered on 07/21/18 22:46; Admin Dose 0.5 MG; Start 07/01/18 at 14:00 Metoprolol Tartrate (Lopressor) 50 mg Q8 GTB Last administered on 07/25/18 05:46; Admin Dose 50 MG; Start 07/05/18 at 22:00 Amikacin Sulfate (Amikacin Iv Per Pharmacy) 1 ea NOTE XX ; Start 07/09/18 at 17:30 Vancomycin HCl (Vancomycin Oral Syringe) 125 mg Q6 GTB Last administered on 07/25/18 05:50; Admin Dose 125 MG; Start 07/09/18 at 18:00 Epoetin Zen-epbx (Retacrit (Non-Esrd)) 10,000 unit MoWeFr@1700 SC Last administered on 07/24/18 17:53; Admin Dose 10,000 UNIT; Start 07/13/18 at 17:00 Cefepime HCl 50 ml @ 100 mls/hr Q24H IVPB Last administered on 07/24/18 17:51; Admin Dose 100 MLS/HR; Start 07/14/18 at 18:30 Albuterol/ Ipratropium (Duoneb) 3 ml Q2H RESP THERAPY PRN HHN WHEEZING Last administered on 07/21/18 23:06; Admin Dose 3 ML; Start 07/21/18 at 22:00 Amiodarone HCl (Cordarone) 200 mg BID GTB Last administered on 07/25/18 09:50; Admin Dose 200 MG; Start 07/22/18 at 21:00 Amikacin Sulfate 300 mg/Dextrose 101.2 ml @ 102 mls/hr Q72H IVPB Last administered on 07/24/18 23:28; Admin Dose 102 MLS/HR; Start 07/24/18 at 23:00 Citric Acid/ Sodium Citrate (Bicitra) 60 ml DAILY PO Last administered on 07/25/18 09:50; Admin Dose 60 ML; Start 07/23/18 at 09:00 KERON MORAN Jul 25, 2018 12:18
--- NOTE | 2018-07-25 15:13 | CONS ---
Assessment/Plan Assessment/Plan Hospital Course (Demo Recall) # sepsis, leukocytosis, SIRS, pulmonary, cardiac - recurrent leukocytosis due to bacteremia (below), improved - s/p septic shock due to pneumonia and C diff colitis - acute on chronic hypoxic respiratory failure, persistent - s/p reintubation 05/12/2018 - s/p re-do trach on 05/29/2018 - recurrent colonization of the anterior neck wound with ESBL+kleb, MRSA, GBS, corynebacteria on 05/06/2018 - h/o pneumonia vs. colonization of the airway by pseudomonas and ESBL+klebsiella - h/o possible, recurrent HCAP due to pseudomonas and ESBL+klebsiella - h/o recurrent HCAP due to MRSA and Enterobacter (culture of tracheal aspirate on 07/16/2017 that was collected at [facility]) . Pt took vancomycin and ceftazidime - h/o decannulation prior to admission - h/o tracheostomy on 06/11/2017 - h/o SIRS from UGIB in 2018 - h/o thoracentesis on 07/18/2017, transudative (protein <2, LDH 279) - h/o bleeding from the trach site in 2018 - h/o septic shock due to pneumonia, ARDS, bacteremia, fungemia in 2018 - h/o ARDS in 2018 - h/o smoking - COPD - h/o ILD per medical record - h/o PAF, improved - echodense structure in posterior leafleat region, differential includes calcification vs vegetation per 2D echo 07/15/2018 # GI - s/p possible ileus or enterocolitis on CT abd/pel 06/15/2018-->follow up CT on 07/15/2018 showed no evidence of urolithiasis, obstructive uropathy or diverticulitis; it showed small to moderate ascites - C diff colitis, diagnosed on 05/11/2018. Pt is on pGT vancomycin (05/11/2018-); Pt previously took IV metronidazole (05/11/2018-05/29/2018; restart 05/30/2018- 06/05/18) too - Pt had multiple negative C. diff tests at [facility] and at OSH in the past; none was positive until 05/11/2018 - dysphagia - h/o PEG placement 06/13/2018 - protein calorie malnutrition - h/o coffee ground emesis/UGIB on 12/23/2017 due to deep ulceration of distal esophagus and gastritis on EGD 12/26/2017. No e/o H. pylori - h/o possible appendicitis on CT on 11/22/2017, Pt took ertapenem (11/24/2017- 12/01/2017) - h/o extensive adhesions lower abdominal and pelvis between small bowel to each other and to colon and to abdominal wall, anterior pelvic wall chronic abscess secondary to probably an old perforated diverticulitis, torsion of small bowel around these dense adhesion causing multiple obstructive points - h/o laparoscopic exploration and extensive lysis of adhesions and drainage of anterior pelvic wall abscess 09/16/2017. Cultures were negative, no e/o malignancy. Pt took pip/tazo (09/16/2017-09/26/2017) - h/o EGD and exchange of PEG on 09/01/2017 - h/o partial obstruction mid jejunum in L anterior central pelvis with suggestion of a 3 cm soft tissue mass on CT 08/28/2017 - h/o internal stomal deep ulcer behind the internal bumper, gastritis and esophagitis, Rodriguez's cannot be ruled out, per EGD with biopsy 07/23/2017 - h/o GIB s/p flex sig showed polyp; stool OB negative on 06/29/17 - h/o stool OB positive status - h/o SBO and ileus due to pain meds - h/o mildly elevated CEA # renal/ - s/p recurrent UTI due to pseudomonas (culture on 07/09/2018)-->Garza catheter was replaced on 07/14/2018 - s/p UTI due to MDR, CRE-klebsiella on 06/15/2018. S/p renally dosed amikacin for klebsiella in her urine culture (06/17-06/22/2018) - s/p UTI due to pseudomonas and ESBL+klebsiella on 06/09/2018, Pt took one dose of fosfomycin on 06/10/2018 and cipro 06/12-06/15/2018 - anasarca - started on HD on 05/15/2018, via Juan in R groin - recurrent NATHAN on CKD - 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 Her strain of CRE was sensitive to colistin, Avycaz, and Vabomere but resistant to Zerbaxa (reported on 05/19/2018) - metabolic acidosis - adrenal insufficiency - h/o vaginal bleed in 2018 - h/o colonization of urinary tract by ESBL+klebsiella, VRE - h/o recurrent, symptomatic UTI due to carbapenem-resistant kleb (MDR strain) per urine culture 10/04/17, 10/09/17, 10/21/2017, P took colistin (10/09/2017- 10/15/2017), fosfomycin for carbapenemase-producing klebsiella and VRE on 10/25/2017 and 10/28/2017 - h/o funguria - h/o urinary retention # bloodstream infections - Bacteremia d/t pseudomonas aeruginosa 07/09/18, 07/10/18, 07/11/18, 07/12/18, 07/13/18, 07/15/18, 07/17/18. This is associated with PICC because the blood culture from PICC and phlebotomy on 07/13/2018 both grew the same bacteria. 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 improved. Probable manifestation of endocarditis. Pt declined MRI on 08/06/2017 - h/o infection of R toes due to pseudomonas. coagulase negative Staph likely a colonizer - h/o intertrigo of the groin, resolved with nystatin powder - h/o scabies, locally crusted lesion over L scapula, s/p permethrin cream and pGT ivermectin on 08/11/2017, 08/12/2017, 08/19/2017. Repeat skin scraping on 08/21/2017 was negative for scabies # psych, neuro - chronic toxic metabolic encephalopathy, progressing - decreased hearing b/l - h/o critical illness polyneuropathy - anxiety/depression, bipolar d/o, seen by Psychiatry in the past - chronic pain syndrome - h/o medical non-compliance: she would refuse her medications, treatment and straight catheterization in 2018 # hematological, vascular - chronic anemia requiring blood transfusion intermittently - macrocytic anemia - aneurysmal dilatation of the distal aorta visualized on CT 06/15/2018 - PVD Recommendations: - continue amikacin IV (07/09/2018-). Pt had a strain of pseudomonas that was resistant to all except for aminoglycoside - continue renally dosed cefepime (07/14/2018-); Pt needs double coverage because amikacin alone has not cleared her bacteremia. Some strains of pseudomonas she had were pansensitive while other strains of pseudomonas were resistant to many antibiotics (MDR) - pt will require a prolonged course of abx given likely vegetation on 2D echo; plan for 6 weeks - will request Micro to check susceptibility of pseudomonas from blood cx on 07/17/2018 to avycaz, zerbaxa, doripenem and colistin (order placed for AM RN to f/u) - okay to place PICC line from ID standpoint for prolonged IV abx - continue vancomycin pGT (07/09/18/ - ) while on IV abx d/t pt's h/o C. diff. Pt completed IV metronidazole (07/09/18-07/15/18) - we recommend Audiology testing for this pt who will likely require terminal makeup operator aminoglycoside - consider MARCIAL to r/o endocarditis so as to possibly limit pt's course of antibiotics/exposure to nephrotoxic agents. Although it may be difficult to distinguish between an old lesion vs a new lesion. - we recommend Neuro consult as Pt has progressive chronic toxic metabolic encephalopathy - monitor CrCl (trending down today) - consider goals of continued aggressive care; overall prognosis appears poor especially in light of recent echo findings Management d/w RN Kolby and with Dr. Doyle Consultation Date/Type/Reason Admit Date/Time May 06, 2018 at 17:38 Initial Consult Date 05/07/18 Type of Consult Infectious Disease Requesting Provider: ROLAND GIRON MD Date/Time of Note DATE: 07/25/18 TIME: 15:12 24 HR Interval Summary Free Text/Dictation No acute issues. No diarrhea per d/w pt's nurse. Subjective hx not possible: pt non-verbal Exam/Review of Systems Exam Vitals Vital Signs Date Temp Pulse Resp B/P (MAP) Pulse Ox O2 O2 Flow FiO2 Time Delivery Rate 07/25/18 65 18 153/78 100 15:11 (103) 07/25/18 98.5 11:35 07/25/18 30 10:04 07/24/18 Trach 15:19 Collar Intake and Output 07/24/18 07/24/18 07/25/18 1515:00 23:00 07:00 IntakeIntake Total 840 ml OutputOutput Total 800 ml BalanceBalance 40 ml Exam Constitutional: well developed, frail, obese, other (chronically debilitated) Psych: other (unable to assess d/t lethargy) Head: normocephalic, atraumatic Eyes: nl conjunctiva, nl lids, nl sclera ENMT: nl external ears & nose, nl nasal mucosa & septum, other (unable to examine OP) Neck: non-tender, other (trach is midline and connected to ventilator support) Respiratory: diminished breath sounds, other (coarse breath sounds); No wheezing Cardiovascular: regular rate and rhythm, edema Gastrointestinal: soft, tender (nonspecific; no guarding; G-tube c/d/i) Genitourinary - Female: other (Garza in place) Musculoskeletal: muscle weakness Extremities: normal pulses, edema, other (bilateral foot drop) Neurological: lethargic, other (no commands) Skin: ecchymosis, other (R foot and L [place] wrapped with Kerlix c/d/i) Results Result Diagram: 07/25/18 0745 07/25/18 0745 Results 24hrs Laboratory Tests Test 07/25/18 07:45 White Blood Count 10.4 Red Blood Count 2.68 L Hemoglobin 8.6 L Hematocrit 28.9 L Mean Corpuscular Volume 107.8 H Mean Corpuscular Hemoglobin 32.1 Mean Corpuscular Hemoglobin Concent 29.8 L Red Cell Distribution Width 22.0 H Platelet Count 260 Mean Platelet Volume 10.9 H Immature Granulocytes % 0.500 H Neutrophils % 82.9 H Lymphocytes % 8.4 L Monocytes % 5.6 Eosinophils % 2.3 Basophils % 0.3 Nucleated Red Blood Cells % 0.0 Immature Granulocytes # 0.050 H Neutrophils # 8.7 H Lymphocytes # 0.9 Monocytes # 0.6 Eosinophils # 0.2 Basophils # 0.0 Nucleated Red Blood Cells # 0.0 Sodium Level 139 Potassium Level 3.6 Chloride Level 100 Carbon Dioxide Level 26 Anion Gap 13 Blood Urea Nitrogen 96 H Creatinine 2.35 H Est Glomerular Filtrat Rate mL/min Glucose Level 112 Calcium Level 9.5 Phosphorus Level 3.4 Magnesium Level 1.8 Medications Medication Current Medications IV Flush (NS 10 ml) 10 ml PRN IV ; Start 05/06/18 at 20:30 Zinc Sulfate (Zinc Sulfate) 220 mg DAILY GTB Last administered on 07/25/18 09:50; Admin Dose 220 MG; Start 05/07/18 at 09:00 Ondansetron HCl (Zofran Tab) 4 mg Q6H PRN GTB NAUSEA AND/OR VOMITING Last administered on 05/31/18 16:47; Admin Dose 4 MG; Start 05/07/18 at 00:15 Multivitamins (Multivitamin) 30 ml DAILY GTB Last administered on 07/25/18 0 9:50; Admin Dose 30 ML; Start 05/07/18 at 09:00 Miscellaneous Information (Pending Santyl Order For Wound Care) This patient goldman... PRN PRN XX WOUND CARE; Start 05/09/18 at 17:00 Acetaminophen (Tylenol Tab) 650 mg Q4H PRN PO MILD PAIN(1-3)OR ELEVATED TEMP Last administered on 07/16/18 00:42; Admin Dose 650 MG; Start 05/31/18 at 13:00 Collagenase (Santyl) 1 applic DAILY TOP Last administered on 07/25/18 09:51; Admin Dose 1 APPLIC; Start 06/01/18 at 09:00 Clonidine (Catapres) 0.1 mg Q6H PRN PO ELEVATED BLOOD PRESSURE Last administered on 07/25/18 01:34; Admin Dose 0.1 MG; Start 06/03/18 at 03:30 Bumetanide (Bumex) 1 mg BID DIURETICS GTB Last administered on 07/25/18 05:50; Admin Dose 1 MG; Start 06/11/18 at 18:00 Miscellaneous Information 1 ea NOTE XX ; Start 06/26/18 at 08:00 Dicyclomine HCl (Bentyl) 20 mg Q8 PO Last administered on 07/25/18 14:09; Admin Dose 20 MG; Start 06/27/18 at 22:00 Cholestyramine Resin (Questran Light) 4 gm 0600,1200,1800,2300 GTB Last administered on 07/25/18 12:35; Admin Dose 4 GM; Start 06/27/18 at 18:00 Lorazepam (Ativan) 0.5 mg Q4 PRN IV ANXIETY Last administered on 07/21/18 22:46; Admin Dose 0.5 MG; Start 07/01/18 at 14:00 Metoprolol Tartrate (Lopressor) 50 mg Q8 GTB Last administered on 07/25/18 14:09; Admin Dose 50 MG; Start 07/05/18 at 22:00 Amikacin Sulfate (Amikacin Iv Per Pharmacy) 1 ea NOTE XX ; Start 07/09/18 at 17:30 Vancomycin HCl (Vancomycin Oral Syringe) 125 mg Q6 GTB Last administered on 07/25/18 12:35; Admin Dose 125 MG; Start 07/09/18 at 18:00 Epoetin Zen-epbx (Retacrit (Non-Esrd)) 10,000 unit MoWeFr@1700 SC Last adm inistered on 07/24/18 17:53; Admin Dose 10,000 UNIT; Start 07/13/18 at 17:00 Cefepime HCl 50 ml @ 100 mls/hr Q24H IVPB Last administered on 07/24/18 17:51; Admin Dose 100 MLS/HR; Start 07/14/18 at 18:30 Albuterol/ Ipratropium (Duoneb) 3 ml Q2H RESP THERAPY PRN HHN WHEEZING Last administered on 07/21/18 23:06; Admin Dose 3 ML; Start 07/21/18 at 22:00 Amiodarone HCl (Cordarone) 200 mg BID GTB Last administered on 07/25/18 09:50; Admin Dose 200 MG; Start 07/22/18 at 21:00 Amikacin Sulfate 300 mg/Dextrose 101.2 ml @ 102 mls/hr Q72H IVPB Last administered on 07/24/18 23:28; Admin Dose 102 MLS/HR; Start 07/24/18 at 23:00 Citric Acid/ Sodium Citrate (Bicitra) 60 ml DAILY PO Last administered on 07/25/18 09:50; Admin Dose 60 ML; Start 07/23/18 at 09:00 LAURA JOSHI NP Jul 25, 2018 15:13
[2018-07-25] MEDS: CEFEPIME 2GM/50 ML (PMX) 50 ML IVPB SCH (17:47)
[2018-07-26] VITALS (23 sets, daily range): BP systolic 155–185; BP diastolic 82–103; PULSE 67–89; RESP 18–27
[2018-07-26] MEDS: BUMETANIDE 1 MG TAB GTB SCH (06:06)
[2018-07-26] MEDS: VANCOMYCIN HCL 250 MG/5ML POSYG GTB SCH ×4 (06:06→23:30)
[2018-07-26] MEDS: DICYCLOMINE 10 MG CAP PO SCH ×3 (06:07→21:38)
[2018-07-26] MEDS: CHOLESTYRAMINE (LIGHT) 4 GM PACKET GTB SCH ×4 (06:45→23:30)
[2018-07-26] MEDS: METOPROLOL 50 MG TAB GTB SCH ×3 (06:45→21:38)
--- NOTE | 2018-07-26 08:43 | PN ---
Date/Time of Note Date/Time of Note DATE: 07/26/18 TIME: 08:43 Assessment/Plan VTE Prophylaxis Risk score (from [facility])>0 risk: 6 SCD applied (from [facility]): No SCD contraindicated: other Pharmacological prophylaxis: other Pharm contraindication: surgical contra Lines/Catheters IV Catheter Type (from [facility]): Saline Lock Urinary Cath still in place: Yes Reason Cath still needed: urinary retention Assessment/Plan Assessment/Plan - Altered mental status-less responsive. DW Dr Mckeon- AMA may be possibly 2/2 to uremia; and he will talk to patient family regarding possibly starting HD. - CT brain - no acute changes - neuro consut appreciated- Dr Mathew - monitor renal functions -Persistent leukocytosis with Pseudomonas bacteremia 2 to PICC line infection, continue antibiotics per ID. - Dr. Doyle is following in infection disease consultation. 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 TTE 07/16/18 with notion of echodense structure on the mitral valve, calcification vs vegetation. - Dr. Scanlon is following in cardiology consultation. - patient needs IV cefepime and amikacin for treatment of bacteremia and presumed endocarditis for 5 weeks until 08/22/2018 per ID recommendations. -MDR Klebsiella urinary tract infection, completed treatment with amikacin. -Atrial fibrillation was rapid ventricular response, patient remains in sinus rhythm continue metoprolol and amiodarone. -S/p septic shock secondary to urinary tract infection, anterior neck soft tissue infection, and C. difficile colitis. -C-diff colitis,resolved. -Acute respiratory failure requiring intubation and ventilatory support. Dr. Lambert is following in pulmonology consultation. -S/p tracheostomy on 05/29/18. -Acute kidney injury on chronic kidney disease. Started on HD this admission with recovery of renal function. - Dr. Mckeon is following in nephrology consultation. -Anemia of chronic inflammation, stool for OB is negative, status post blood transfusion. Continue Epogen. -Metabolic acidosis, resolved. -Acute diastolic congestive heart failure. -Paroxysmal atrial fibrillation -COPD -Dysphagia with PEG. -G-tube mild malfunction, changed by GI Dr. Carolina is following in gastroenterology consultation. -Obesity -Critical care myopathy Further recommendations based on clinical course. Plan of care discussed with Dr. Eisenberg. Result Diagram: 07/26/18 0606 07/26/18 0606 Results 24hrs Laboratory Tests Test 07/26/18 06:06 White Blood Count 12.3 H Red Blood Count 2.88 L Hemoglobin 9.2 L Hematocrit 30.8 L Mean Corpuscular Volume 106.9 H Mean Corpuscular Hemoglobin 31.9 Mean Corpuscular Hemoglobin Concent 29.9 L Red Cell Distribution Width 21.6 H Platelet Count 273 Mean Platelet Volume 10.4 Immature Granulocytes % 0.400 Neutrophils % 84.2 H Lymphocytes % 7.9 L Monocytes % 5.7 Eosinophils % 1.5 Basophils % 0.3 Nucleated Red Blood Cells % 0.0 Immature Granulocytes # 0.050 H Neutrophils # 10.3 H Lymphocytes # 1.0 Monocytes # 0.7 Eosinophils # 0.2 Basophils # 0.0 Nucleated Red Blood Cells # 0.0 Sodium Level 140 Potassium Level 3.7 Chloride Level 100 Carbon Dioxide Level 29 Anion Gap 11 Blood Urea Nitrogen 96 H Creatinine 2.54 H Est Glomerular Filtrat Rate mL/min Glucose Level 122 Calcium Level 10.0 Subjective 24 Hr Interval Summary Free Text/Dictation nad; stable; vss no new events reported last night dw staff Subjective hx not possible: pt non-verbal Constitutional: requiring IVF Exam/Review of Systems Exam Vitals Vital Signs Date Temp Pulse Resp B/P (MAP) Pulse Ox O2 O2 Flow FiO2 Time Delivery Rate 07/26/18 30 07:56 07/26/18 68 22 100 07:44 07/26/18 98.1 168/91 Mechanical 07:08 (116) Ventilator Trach Collar Intake and Output 07/25/18 07/25/18 07/26/18 1515:00 23:00 07:00 IntakeIntake Total 780 ml OutputOutput Total 650 ml BalanceBalance 130 ml Constitutional: alert, non-verbal, frail Psych: nl mood/affect Eyes: nl lids, nl sclera ENMT: nl external ears & nose Neck: non-tender Respiratory: clear to auscultation Cardiovascular: nl pulses, other (s1s2) Gastrointestinal: soft, other (gt intact) Musculoskeletal: muscle weakness, range of motion Extremities: normal pulses Neurological: confused Skin: other (decubs) Lymph: nontender Results Results 24hrs Laboratory Tests Test 07/26/18 06:06 White Blood Count 12.3 H Red Blood Count 2.88 L Hemoglobin 9.2 L Hematocrit 30.8 L Mean Corpuscular Volume 106.9 H Mean Corpuscular Hemoglobin 31.9 Mean Corpuscular Hemoglobin Concent 29.9 L Red Cell Distribution Width 21.6 H Platelet Count 273 Mean Platelet Volume 10.4 Immature Granulocytes % 0.400 Neutrophils % 84.2 H Lymphocytes % 7.9 L Monocytes % 5.7 Eosinophils % 1.5 Basophils % 0.3 Nucleated Red Blood Cells % 0.0 Immature Granulocytes # 0.050 H Neutrophils # 10.3 H Lymphocytes # 1.0 Monocytes # 0.7 Eosinophils # 0.2 Basophils # 0.0 Nucleated Red Blood Cells # 0.0 Sodium Level 140 Potassium Level 3.7 Chloride Level 100 Carbon Dioxide Level 29 Anion Gap 11 Blood Urea Nitrogen 96 H Creatinine 2.54 H Est Glomerular Filtrat Rate mL/min Glucose Level 122 Calcium Level 10.0 Medications Medication Current Medications IV Flush (NS 10 ml) 10 ml PRN IV ; Start 05/06/18 at 20:30 Zinc Sulfate (Zinc Sulfate) 220 mg DAILY GTB Last administered on 07/25/18 09:50; Admin Dose 220 MG; Start 05/07/18 at 09:00 Ondansetron HCl (Zofran Tab) 4 mg Q6H PRN GTB NAUSEA AND/OR VOMITING Last administered on 05/31/18 16:47; Admin Dose 4 MG; Start 05/07/18 at 00:15 Multivitamins (Multivitamin) 30 ml DAILY GTB Last administered on 07/25/18 09:50; Admin Dose 30 ML; Start 05/07/18 at 09:00 Miscellaneous Information (Pending Santyl Order For Wound Care) This patient goldman... PRN PRN XX WOUND CARE; Start 05/09/18 at 17:00 Acetaminophen (Tylenol Tab) 650 mg Q4H PRN PO MILD PAIN(1-3)OR ELEVATED TEMP Last administered on 07/16/18 00:42; Admin Dose 650 MG; Start 05/31/18 at 13:00 Collagenase (Santyl) 1 applic DAILY TOP Last administered on 07/25/18 09:51; Admin Dose 1 APPLIC; Start 06/01/18 at 09:00 Clonidine (Catapres) 0.1 mg Q6H PRN PO ELEVATED BLOOD PRESSURE Last administered on 07/26/18 06:46; Admin Dose 0.1 MG; Start 06/03/18 at 03:30 Bumetanide (Bumex) 1 mg BID DIURETICS GTB Last administered on 07/26/18 06:06; Admin Dose 1 MG; Start 06/11/18 at 18:00; Status Hold Miscellaneous Information 1 ea NOTE XX ; Start 06/26/18 at 08:00 Dicyclomine HCl (Bentyl) 20 mg Q8 PO Last administered on 07/26/18 06:07; Admin Dose 20 MG; Start 06/27/18 at 22:00 Cholestyramine Resin (Questran Light) 4 gm 0600,1200,1800,2300 GTB Last administered on 07/26/18 06:45; Admin Dose 4 GM; Start 06/27/18 at 18:00 Lorazepam (Ativan) 0.5 mg Q4 PRN IV ANXIETY Last administered on 07/21/18 22:46; Admin Dose 0.5 MG; Start 07/01/18 at 14:00 Metoprolol Tartrate (Lopressor) 50 mg Q8 GTB Last administered on 07/26/18 06:45; Admin Dose 50 MG; Start 07/05/18 at 22:00 Amikacin Sulfate (Amikacin Iv Per Pharmacy) 1 ea NOTE XX ; Start 07/09/18 at 17:30 Vancomycin HCl (Vancomycin Oral Syringe) 125 mg Q6 GTB Last administered on 07/26/18 06:06; Admin Dose 125 MG; Start 07/09/18 at 18:00 Epoetin Zen-epbx (Retacrit (Non-Esrd)) 10,000 unit MoWeFr@1700 SC Last administered on 07/24/18 17:53; Admin Dose 10,000 UNIT; Start 07/13/18 at 17:00 Cefepime HCl 50 ml @ 100 mls/hr Q24H IVPB Last administered on 07/25/18 17:47; Admin Dose 100 MLS/HR; Start 07/14/18 at 18:30 Albuterol/ Ipratropium (Duoneb) 3 ml Q2H RESP THERAPY PRN HHN WHEEZING Last administered on 07/21/18at 23:06; Admin Dose 3 ML; Start 07/21/18 at 22:00 Amiodarone HCl (Cordarone) 200 mg BID GTB Last administered on 07/25/18at 21:30; Admin Dose 200 MG; Start 07/22/18 at 21:00 Amikacin Sulfate 300 mg/Dextrose 101.2 ml @ 102 mls/hr Q72H IVPB Last administered on 07/24/18at 23:28; Admin Dose 102 MLS/HR; Start 07/24/18 at 23:00 Citric Acid/ Sodium Citrate (Bicitra) 60 ml DAILY PO Last administered on 07/25/18at 09:50; Admin Dose 60 ML; Start 07/23/18 at 09:00 KERON MORAN Jul 26, 2018 08:43
--- NOTE | 2018-07-26 09:06 | PN ---
DATE: 07/26/2018 SUBJECTIVE: The patient is stable, no events overnight. No fevers, chills, nausea, vomiting. OBJECTIVE: VITAL SIGNS: Blood pressure is 169/91, pulse 68, respirations 22, temperature 98.1. HEENT: Head is normocephalic. NECK: Supple. HEART: Regular rate. LUNGS: Show diminished breath sounds at the base. ABDOMEN: Soft, nontender to palpation without rebound or guarding. EXTREMITIES: Negative for clubbing, cyanosis. Trace edema. DERMATOLOGIC: No rashes. MUSCULOSKELETAL: No joint effusion. NEUROLOGIC: No change in exam. MEDICATIONS: The patient's medications have been reviewed. LABORATORY DATA: Has been reviewed. IMAGING STUDIES: Have been reviewed. ASSESSMENT AND PLAN: 1. Nonoliguric acute kidney injury with previous baseline creatinine around 2.0 mg/dL. Etiology may have secondary to acute tubular necrosis. The patient is status post dialysis. The patient has brandin wn adequate renal recovery. The patient's renal function; however, has declined in the past several days. This may be secondary to sepsis and recent diuretic therapy that was reintroduced. Plan is to hold Bumex. Will monitor renal function closely, monitor mental status closely. No immediate need to reintroduce renal replacement therapy at this time. 2. Hypernatremia, improved. 3. Hyperkalemia was improved. 4. Metabolic acidosis, improved. 5. Volume overload, improving. Will hold diuretic therapy at this time due to worsening renal funct ion. 6. Anemia. Monitor hemoglobin and hematocrit levels. 7. Ventilator-dependent respiratory failure. Vent settings have been reviewed. Continue to monitor . 8. Sepsis, endocarditis. The patient has completed an antibiotic course. 9. Dysphagia. Continue tube feeding. 10. Encephalopathy. Etiology is toxic metabolic, questionable component of uremia, monitor closely. 11. Lower extremity wounds. Continue wound care. Dictated By: JEANA BANSAL DO NR/NTS Conf#: [id number] DID#: [id number] CC: ROLAND GIRON MD; QUINTEN UMAÑA MD;*EndCC*
[2018-07-26] MEDS: CITRIC ACID/NA CITRATE 30 ML CUP PO SCH (10:16)
[2018-07-26] MEDS: AMIODARONE 200 MG TAB GTB SCH ×2 (10:17→21:37)
[2018-07-26] MEDS: COLLAGENASE 5 GM (UD JAR) TOP SCH (10:17)
[2018-07-26] MEDS: MULTIVITAMINS 30 ML CUP GTB SCH (10:17)
[2018-07-26] MEDS: ZINC SULFATE 220 MG CAP GTB SCH (10:17)
[2018-07-26] MEDS: BALSAM PERU/CASTOR OIL 60 GM TUBE TOP SCH ×2 (10:18→21:38)
--- NOTE | 2018-07-26 11:28 | CONSI ---
Assessment/Plan Assessment/Plan Assessment/Plan (Recall) 73 F c/ multiple medial comorbidities, who presents for evaluation of lethargy in the context of acute on chronic renal failure and severe hyponatremia. Her mental status reportedly improved w/ symptomatic management of the above, but has since declined anew..for which neurology is consulted.. Of note, she has a Hx of afib...and a report of a possible mitral vegetation on echocardiogram from 04/2018.. Recurrent toxic-metabolic encephalopathy is possible.. Seizure and stroke are, though, not yet excluded.. P: MRI brain for further characterization EEG to evaluate for epileptiform activity Add ammonia level Limit sedating medications where possible Other medical management and supportive care per primary Will follow clinically Consultation Date/Type/Reason Admit Date/Time May 06, 2018 at 17:38 Type of Consult Neurology Reason for Consultation ams Requesting Provider: ROLAND GIRON MD Date/Time of Note DATE: 07/26/18 TIME: 11:13 Hx of Present Illness Patient is unable to contribute a Hx. Noted to be altered for unspecified duration, for which neurology is consulted. It is elsewhere noted: On admission: The patient is a 73-year-old female well known to me from previous several admissions. The patient has a complex medical history including history of COPD, respiratory failure, who was recently decannulated at [facility] and was doing reasonably well; however, the patient was noted to be increasingly sleepy as well as had generalized weakness. The patient was less interactive. The patient was sent to [facility] ER where she was noted to have sodium of 122, BUN was 172, creatinine of 3. The patient's baseline sodium back in 01/2019 was 139. BUN was 42, creatinine was 1.3. The patient recently had acute on chronic kidney disease for which she did receive IV fluid. The patient did not have any vomiting, no reported fever or chills. The patient was hypertensive and tachycardic in ER, and received IV fluid bolus. The patient's lactic acid, however, came back as only 0.7. The patient's urine was cloudy and apparently has pyuria. The patient also had a white count of 12.5 with 87% neutrophil. The patient is being admitted for further evaluation and management. The patient initially was lethargic; however, her mental status improved with IV fluid and she is now back to her baseline mental status. The patient is awake, alert, and follows simple commands. No reported abdominal pain. No reported vomiting. No reported recent seizures. There is no significant leg edema. The patient does have generalized weakness and spends most of time in her bed. No reported agitation. Then on 07/26: Altered mental status-less responsive. DW Dr Mckeon- AMA may be possibly 2/2 to uremia; and he will talk to patient family regarding possibly starting HD. - will get CT brain - no acute changes - neuro consut appreciated- Dr Mathew notified - monitor renal functions Subjective hx not possible: pt non-verbal Objective Exam Vitals Vital Signs Date Temp Pulse Resp B/P (MAP) Pulse Ox O2 O2 Flow FiO2 Time Delivery Rate 07/26/18 70 27 100 30 10:58 07/26/18 98.1 168/91 Mechanical 07:08 (116) Ventilator Trach Collar Intake and Output 07/25/18 07/25/18 07/26/18 1515:00 23:00 07:00 IntakeIntake Total 780 ml OutputOutput Total 650 ml BalanceBalance 130 ml Exam PE: Gen Appearance: No Apparent Distress HEENT: Trach Cardiovascular: Regular rate Abdomen: Soft Extremities: Dry NE: The patient was awake, though did not fix or follow.. Cranial nerve examination was limited by mental status. Pupils were equal and r eactive to light. There was no afferent pupillary defect. Funduscopic examination was limited. Face was grossly symmetric, w/ present corneal and cough reflexes. Tone was increased. Muscle bulk was normal. I did not see fasciculations. The patient withdrew to noxious stimulation x 3, not in RLE. Coordination and gait testing was limited by mental status. Arm and leg reflexes were brisk. Gonzales's sign was absent. Plantar responses were equivocal. Results Result Diagram: 07/26/18 0606 07/26/18 0606 Results 24hrs Laboratory Tests Test 07/26/18 06:06 White Blood Count 12.3 H Red Blood Count 2.88 L Hemoglobin 9.2 L Hematocrit 30.8 L Mean Corpuscular Volume 106.9 H Mean Corpuscular Hemoglobin 31.9 Mean Corpuscular Hemoglobin Concent 29.9 L Red Cell Distribution Width 21.6 H Platelet Count 273 Mean Platelet Volume 10.4 Immature Granulocytes % 0.400 Neutrophils % 84.2 H Lymphocytes % 7.9 L Monocytes % 5.7 Eosinophils % 1.5 Basophils % 0.3 Nucleated Red Blood Cells % 0.0 Immature Granulocytes # 0.050 H Neutrophils # 10.3 H Lymphocytes # 1.0 Monocytes # 0.7 Eosinophils # 0.2 Basophils # 0.0 Nucleated Red Blood Cells # 0.0 Sodium Level 140 Potassium Level 3.7 Chloride Level 100 Carbon Dioxide Level 29 Anion Gap 11 Blood Urea Nitrogen 96 H Creatinine 2.54 H Est Glomerular Filtrat Rate mL/min Glucose Level 122 Calcium Level 10.0 Past Medical History reviewed Home Meds Reported Medications Zinc Sulfate* (Zinc Sulfate*) 220 Mg Tablet, 220 MG GTB DAILY, TAB START DATE 05/04/18, END DATE 06/03/18 05/06/18 Diclofenac Sodium* (Voltaren* Gel) 1% -100 Gm Gel, 2 GM TOP TID, #1 TUB 05/06/18 Ascorbic Acid (Vitamin C) 500 Mg Tab, 500 MG GTB DAILY, TAB 05/06/18 Quetiapine Fumarate* (Seroquel*) 100 Mg Tablet, 600 MG GTB HS, #30 TAB 05/06/18 Protein Supplement (Promod) 946 Ml Liquid, 30 ML GTB BID 05/06/18 Epoetin Zen (Procrit) 20,000 Unit/1 Ml Vial, 34580 UNIT IJ Q TUE for FOR ANEMIA OF CKD, VIAL HOLD IFHGB IS EQUAL OR GREATER THAN 11 05/06/18 Ondansetron Hcl* (Ondansetron Hcl* Liq) 4 Mg/5 Ml Solution, 4 MG GTB Q6H PRN for NAUSEA AND/OR VOMITING, ML 05/06/18 Multivitamin with Minerals (Multivitamins with Minerals) 1 Each Tablet, 1 EACH GTB QAM, TAB 05/06/18 Metoprolol Tartrate* (Lopressor*) 25 Mg Tab, 25 MG GTB BID, #60 TAB HOLD FOR SBP<110 OR HR<60 05/06/18 Lorazepam* (Ativan* Intensol) 2 Mg/Ml Soln, 0.5 MG IV* Q6H PRN for ANXIETY, #1 BOTTLE START DATE 04/02/18, END DATE 06/01/18 05/06/18 Lidocaine (Lidocaine) 1 Each Adh..patch, 1 EACH TP Q12H 5% 05/06/18 Ipratropium-Albuterol (Ipratropium-Albuterol) 0.5-3 Mg/3 Ml Ampul.neb, 3 ML INHALATION Q6 PRN for BRONCHOSPASM, #30 VIAL 05/06/18 Ipratropium-Albuterol (Ipratropium-Albuterol) 0.5-3 Mg/3 Ml Ampul.neb, 3 ML INHALATION Q2H PRN for BRONCHOSPASM, #30 VIAL 05/06/18 Famotidine* (Famotidine*) 20 Mg Tablet, 20 MG GTB BID, #60 TAB 05/06/18 Valproic Acid* (Depakene*) 250 Mg/5 Ml Udc Syrup, 100 MG GTB QHS, ML 05/06/18 Clonidine Hcl* (Clonidine Hcl*) 0.1 Mg Tab, 0.1 MG GTB Q6 PRN for NEEDED, TAB FOR SBP>160 OR DBP>90 05/06/18 Aspirin* (Aspirin* Chew) 81 Mg Tab.chew, 81 MG GTB DAILY, TAB.CHEW 05/06/18 Medications Current Medications IV Flush (NS 10 ml) 10 ml PRN IV ; Start 05/06/18 at 20:30 Zinc Sulfate (Zinc Sulfate) 220 mg DAILY GTB Last administered on 07/26/18at 10:17; Admin Dose 220 MG; Start 05/07/18 at 09:00 Ondansetron HCl (Zofran Tab) 4 mg Q6H PRN GTB NAUSEA AND/OR VOMITING Last administered on 05/31/18at 16:47; Admin Dose 4 MG; Start 05/07/18 at 00:15 Multivitamins (Multivitamin) 30 ml DAILY GTB Last administered on 07/26/18at 10:17; Admin Dose 30 ML; Start 05/07/18 at 09:00 Miscellaneous Information (Pending Santyl Order For Wound Care) This patient goldman... PRN PRN XX WOUND CARE; Start 05/09/18 at 17:00 Acetaminophen (Tylenol Tab) 650 mg Q4H PRN PO MILD PAIN(1-3)OR ELEVATED TEMP Last administered on 07/16/18at 00:42; Admin Dose 650 MG; Start 05/31/18 at 13:00 Collagenase (Santyl) 1 applic DAILY TOP Last administered on 07/26/18 10:17; Admin Dose 1 APPLIC; Start 06/01/18 at 09:00 Clonidine (Catapres) 0.1 mg Q6H PRN PO ELEVATED BLOOD PRESSURE Last administered on 07/26/18 10:18; Admin Dose 0.1 MG; Start 06/03/18 at 03:30 Bumetanide (Bumex) 1 mg BID DIURETICS GTB Last administered on 07/26/18 06:06; Admin Dose 1 MG; Start 06/11/18 at 18:00; Status Hold Miscellaneous Information 1 ea NOTE XX ; Start 06/26/18 at 08:00 Dicyclomine HCl (Bentyl) 20 mg Q8 PO Last administered on 07/26/18 06:07; Admin Dose 20 MG; Start 06/27/18 at 22:00 Cholestyramine Resin (Questran Light) 4 gm 0600,1200,1800,2300 GTB Last administered on 07/26/18 06:45; Admin Dose 4 GM; Start 06/27/18 at 18:00 Lorazepam (Ativan) 0.5 mg Q4 PRN IV ANXIETY Last administered on 07/21/18 22:46; Admin Dose 0.5 MG; Start 07/01/18 at 14:00 Metoprolol Tartrate (Lopressor) 50 mg Q8 GTB Last administered on 07/26/18 06 :45; Admin Dose 50 MG; Start 07/05/18 at 22:00 Amikacin Sulfate (Amikacin Iv Per Pharmacy) 1 ea NOTE XX ; Start 07/09/18 at 17:30 Vancomycin HCl (Vancomycin Oral Syringe) 125 mg Q6 GTB Last administered on 07/26/18 06:06; Admin Dose 125 MG; Start 07/09/18 at 18:00 Epoetin Zen-epbx (Retacrit (Non-Esrd)) 10,000 unit MoWeFr@1700 SC Last administered on 07/24/18 17:53; Admin Dose 10,000 UNIT; Start 07/13/18 at 17:00 Cefepime HCl 50 ml @ 100 mls/hr Q24H IVPB Last administered on 07/25/18 17:47; Admin Dose 100 MLS/HR; Start 07/14/18 at 18:30 Albuterol/ Ipratropium (Duoneb) 3 ml Q2H RESP THERAPY PRN HHN WHEEZING Last administered on 07/21/18 23:06; Admin Dose 3 ML; Start 07/21/18 at 22:00 Amiodarone HCl (Cordarone) 200 mg BID GTB Last administered on 07/26/18 10:17; Admin Dose 200 MG; Start 07/22/18 at 21:00 Amikacin Sulfate 300 mg/Dextrose 101.2 ml @ 102 mls/hr Q72H IVPB Last administered on 07/24/18 23:28; Admin Dose 102 MLS/HR; Start 07/24/18 at 23:00 Citric Acid/ Sodium Citrate (Bicitra) 60 ml DAILY PO Last administered on 07/26/18at 10:16; Admin Dose 60 ML; Start 07/23/18 at 09:00 Allergies: Coded Allergies: shellfish derived (Unverified Allergy, Unknown, 05/06/18) Past Surgical History Past Surgical Hx: endoscopy, other Social History Alcohol Use: none Smoking Status: Unknown if ever smoked Drug Use: none PANCHO MATHEW Jul 26, 2018 11:24
[2018-07-26] MEDS: CEFEPIME 2GM/50 ML (PMX) 50 ML IVPB SCH (18:23)
--- NOTE | 2018-07-26 19:21 | CONS ---
Assessment/Plan Assessment/Plan Hospital Course (Demo Recall) # sepsis, leukocytosis, SIRS, pulmonary, cardiac - recurrent leukocytosis due to bacteremia (below), improved - s/p septic shock due to pneumonia and C diff colitis - acute on chronic hypoxic respiratory failure, persistent - s/p reintubation 05/12/2018 - s/p re-do trach on 05/29/2018 - recurrent colonization of the anterior neck wound with ESBL+kleb, MRSA, GBS, corynebacteria on 05/06/2018 - h/o pneumonia vs. colonization of the airway by pseudomonas and ESBL+klebsiella - h/o possible, recurrent HCAP due to pseudomonas and ESBL+klebsiella - h/o recurrent HCAP due to MRSA and Enterobacter (culture of tracheal aspirate on 07/16/2017 that was collected at [facility]) . Pt took vancomycin and ceftazidime - h/o decannulation prior to admission - h/o tracheostomy on 06/11/2017 - h/o SIRS from UGIB in 2018 - h/o thoracentesis on 07/18/2017, transudative (protein <2, LDH 279) - h/o bleeding from the trach site in 2018 - h/o septic shock due to pneumonia, ARDS, bacteremia, fungemia in 2018 - h/o ARDS in 2018 - h/o smoking - COPD - h/o ILD per medical record - h/o PAF, improved - echodense structure in posterior leafleat region, differential includes calcification vs vegetation per 2D echo 07/15/2018 # GI - s/p possible ileus or enterocolitis on CT abd/pel 06/15/2018-->follow up CT on 07/15/2018 showed no evidence of urolithiasis, obstructive uropathy or diverticulitis; it showed small to moderate ascites - C diff colitis, diagnosed on 05/11/2018. Pt is on pGT vancomycin (05/11/2018-); Pt previously took IV metronidazole (05/11/2018-05/29/2018; restart 05/30/2018- 06/05/18) too - Pt had multiple negative C. diff tests at [facility] and at OSH in the past; none was positive until 05/11/2018 - dysphagia - h/o PEG placement 06/13/2018 - protein calorie malnutrition - h/o coffee ground emesis/UGIB on 12/23/2017 due to deep ulceration of distal esophagus and gastritis on EGD 12/26/2017. No e/o H. pylori - h/o possible appendicitis on CT on 11/22/2017, Pt took ertapenem (11/24/2017- 12/01/2017) - h/o extensive adhesions lower abdominal and pelvis between small bowel to each other and to colon and to abdominal wall, anterior pelvic wall chronic abscess secondary to probably an old perforated diverticulitis, torsion of small bowel around these dense adhesion causing multiple obstructive points - h/o laparoscopic exploration and extensive lysis of adhesions and drainage of anterior pelvic wall abscess 09/16/2017. Cultures were negative, no e/o malignancy. Pt took pip/tazo (09/16/2017-09/26/2017) - h/o EGD and exchange of PEG on 09/01/2017 - h/o partial obstruction mid jejunum in L anterior central pelvis with suggestion of a 3 cm soft tissue mass on CT 08/28/2017 - h/o internal stomal deep ulcer behind the internal bumper, gastritis and esophagitis, Rodriguez's cannot be ruled out, per EGD with biopsy 07/23/2017 - h/o GIB s/p flex sig showed polyp; stool OB negative on 06/29/17 - h/o stool OB positive status - h/o SBO and ileus due to pain meds - h/o mildly elevated CEA # renal/ - s/p recurrent UTI due to pseudomonas (culture on 07/09/2018)-->Garza catheter was replaced on 07/14/2018 - s/p UTI due to MDR, CRE-klebsiella on 06/15/2018. S/p renally dosed amikacin for klebsiella in her urine culture (06/17-06/22/2018) - s/p UTI due to pseudomonas and ESBL+klebsiella on 06/09/2018, Pt took one dose of fosfomycin on 06/10/2018 and cipro 06/12-06/15/2018 - anasarca - started on HD on 05/15/2018, via Juan in R groin - recurrent NATHAN on CKD - 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 Her strain of CRE was sensitive to colistin, Avycaz, and Vabomere but resistant to Zerbaxa (reported on 05/19/2018) - metabolic acidosis - adrenal insufficiency - h/o vaginal bleed in 2018 - h/o colonization of urinary tract by ESBL+klebsiella, VRE - h/o recurrent, symptomatic UTI due to carbapenem-resistant kleb (MDR strain) per urine culture 10/04/17, 10/09/17, 10/21/2017, P took colistin (10/09/2017- 10/15/2017), fosfomycin for carbapenemase-producing klebsiella and VRE on 10/25/2017 and 10/28/2017 - h/o funguria - h/o urinary retention # bloodstream infections - Bacteremia d/t pseudomonas aeruginosa 07/09/18, 07/10/18, 07/11/18, 07/12/18, 07/13/18, 07/15/18, 07/17/18. This is associated with PICC because the blood culture from PICC and phlebotomy on 07/13/2018 both grew the same bacteria. 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 improved. Probable manifestation of endocarditis. Pt declined MRI on 08/06/2017 - h/o infection of R toes due to pseudomonas. coagulase negative Staph likely a colonizer - h/o intertrigo of the groin, resolved with nystatin powder - h/o scabies, locally crusted lesion over L scapula, s/p permethrin cream and pGT ivermectin on 08/11/2017, 08/12/2017, 08/19/2017. Repeat skin scraping on 08/21/2017 was negative for scabies # psych, neuro - chronic toxic metabolic encephalopathy, progressing - MRI brain shows no acute intracranial pathology - decreased hearing b/l - h/o critical illness polyneuropathy - anxiety/depression, bipolar d/o, seen by Psychiatry in the past - chronic pain syndrome - h/o medical non-compliance: she would refuse her medications, treatment and straight catheterization in 2018 - complete opacification of the bilateral mastoid air cells per MRI Brain 07/27/2018 # hematological, vascular - chronic anemia requiring blood transfusion intermittently - macrocytic anemia - aneurysmal dilatation of the distal aorta visualized on CT 06/15/2018 - PVD Recommendations: - continue amikacin IV (07/09/2018-). Pt had a strain of pseudomonas that was resistant to all except for aminoglycoside - continue renally dosed cefepime (07/14/2018-); Pt needs double coverage because amikacin alone has not cleared her bacteremia. Some strains of pseudomonas she had were pansensitive while other strains of pseudomonas were resistant to many antibiotics (MDR) - pt will require a prolonged course of abx given likely vegetation on 2D echo; plan for 6 weeks - will request Micro to check susceptibility of pseudomonas from blood cx on 07/17/2018 to avycaz, zerbaxa, doripenem and colistin (order placed for AM RN to f/u) - okay to place PICC line from ID standpoint for prolonged IV abx - continue vancomycin pGT (07/09/18/ - ) while on IV abx d/t pt's h/o C. diff. 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 Although it may be difficult to distinguish between an old lesion vs a new lesion. - Appreciate Nuero eval - F/u EEG results - monitor CrCl (trending down today) - consider goals of continued aggressive care; overall prognosis appears poor especially in light of recent echo findings Management d/w JAYANT Jarrett and with Dr. Doyle Consultation Date/Type/Reason Admit Date/Time May 06, 2018 at 17:38 Initial Consult Date 05/07/18 Type of Consult Infectious Disease Requesting Provider: ROLAND GIRON MD Date/Time of Note DATE: 07/26/18 TIME: 19:21 24 HR Interval Summary Free Text/Dictation See by Neurologist and MRI done per d/w nursing. Subjective hx not possible: pt non-verbal Exam/Review of Systems Exam Vitals Vital Signs Date Temp Pulse Resp B/P (MAP) Pulse Ox O2 O2 Flow FiO2 Time Delivery Rate 07/26/18 70 25 100 30 16:58 07/26/18 98.0 185/103 Mechanical 16:10 (130) Ventilator Trach Collar Intake and Output 07/25/18 07/25/18 07/26/18 1515:00 23:00 07:00 IntakeIntake Total 830 ml OutputOutput Total 650 ml BalanceBalance 180 ml Exam Constitutional: well developed, frail, obese, other (chronically debilitated) Psych: other (unable to assess d/t lethargy) Head: normocephalic, atraumatic Eyes: nl conjunctiva, nl lids, nl sclera ENMT: nl external ears & nose, nl nasal mucosa & septum, other (limited exam of OP which appears pink and dry) Neck: non-tender, other (trach is midline and connected to ventilator support) Respiratory: diminished breath sounds, other (coarse breath sounds); No wheezing Cardiovascular: regular rate and rhythm, edema Gastrointestinal: soft, tender (nonspecific; no guarding; G-tube c/d/i) Genitourinary - Female: other (Garza in place) Musculoskeletal: muscle weakness Extremities: normal pulses, edema, other (bilateral foot drop) Neurological: lethargic, other (no commands) Skin: ecchymosis, other (R foot and L [place] wrapped with Kerlix c/d/i) Results Result Diagram: 07/26/18 0606 07/26/18 0606 Results 24hrs Laboratory Tests Test 07/26/18 06:06 07/26/18 13:46 White Blood Count 12.3 H Red Blood Count 2.88 L Hemoglobin 9.2 L Hematocrit 30.8 L Mean Corpuscular Volume 106.9 H Mean Corpuscular Hemoglobin 31.9 Mean Corpuscular Hemoglobin Concent 29.9 L Red Cell Distribution Width 21.6 H Platelet Count 273 Mean Platelet Volume 10.4 Immature Granulocytes % 0.400 Neutrophils % 84.2 H Lymphocytes % 7.9 L Monocytes % 5.7 Eosinophils % 1.5 Basophils % 0.3 Nucleated Red Blood Cells % 0.0 Immature Granulocytes # 0.050 H Neutrophils # 10.3 H Lymphocytes # 1.0 Monocytes # 0.7 Eosinophils # 0.2 Basophils # 0.0 Nucleated Red Blood Cells # 0.0 Sodium Level 140 Potassium Level 3.7 Chloride Level 100 Carbon Dioxide Level 29 Anion Gap 11 Blood Urea Nitrogen 96 H Creatinine 2.54 H Est Glomerular Filtrat Rate mL/min Glucose Level 122 Calcium Level 10.0 Ammonia < 9 L Imaging Imaging MRI Brain 07/26/2018: 1. Limited examination secondary to motion artifact. 2. Otherwise, no acute intracranial pathology. 3. Mild to moderate volume loss with mild chronic microvascular ischemic changes. 4. Complete opacification of the bilateral mastoid air cells. Medications Medication Current Medications IV Flush (NS 10 ml) 10 ml PRN IV ; Start 05/06/18 at 20:30 Zinc Sulfate (Zinc Sulfate) 220 mg DAILY GTB Last administered on 07/26/18at 10:17; Admin Dose 220 MG; Start 05/07/18 at 09:00 Ondansetron HCl (Zofran Tab) 4 mg Q6H PRN GTB NAUSEA AND/OR VOMITING Last administered on 05/31/18at 16:47; Admin Dose 4 MG; Start 05/07/18 at 00:15 Multivitamins (Multivitamin) 30 ml DAILY GTB Last administered on 07/26/18 10:17; Admin Dose 30 ML; Start 05/07/18 at 09:00 Miscellaneous Information (Pending Santyl Order For Wound Care) This patient goldman... PRN PRN XX WOUND CARE; Start 05/09/18 at 17:00 Acetaminophen (Tylenol Tab) 650 mg Q4H PRN PO MILD PAIN(1-3)OR ELEVATED TEMP Last administered on 07/16/18at 00:42; Admin Dose 650 MG; Start 05/31/18 at 13:00 Collagenase (Santyl) 1 applic DAILY TOP Last administered on 07/26/18 10:17; Admin Dose 1 APPLIC; Start 06/01/18 at 09:00 Clonidine (Catapres) 0.1 mg Q6H PRN PO ELEVATED BLOOD PRESSURE Last administered on 07/26/18 10:18; Admin Dose 0.1 MG; Start 06/03/18 at 03:30 Bumetanide (Bumex) 1 mg BID DIURETICS GTB Last administered on 07/26/18 06:06; Admin Dose 1 MG; Start 06/11/18 at 18:00; Status Hold Miscellaneous Information 1 ea NOTE XX ; Start 06/26/18 at 08:00 Dicyclomine HCl (Bentyl) 20 mg Q8 PO Last administered on 07/26/18 14:21; Admin Dose 20 MG; Start 06/27/18 at 22:00 Cholestyramine Resin (Questran Light) 4 gm 0600,1200,1800,2300 GTB Last administered on 07/26/18 18:23; Admin Dose 4 GM; Start 06/27/18 at 18:00 Lorazepam (Ativan) 0.5 mg Q4 PRN IV ANXIETY Last administered on 07/21/18 22:46; Admin Dose 0.5 MG; Start 07/01/18 at 14:00 Metoprolol Tartrate (Lopressor) 50 mg Q8 GTB Last administered on 07/26/18 14:22; Admin Dose 50 MG; Start 07/05/18 at 22:00 Amikacin Sulfate (Amikacin Iv Per Pharmacy) 1 ea NOTE XX ; Start 07/09/18 at 17:30 Vancomycin HCl (Vancomycin Oral Syringe) 125 mg Q6 GTB Last administered on 07/26/18 18:23; Admin Dose 125 MG; Start 07/09/18 at 18:00 Epoetin Zen-epbx (Retacrit (Non-Esrd)) 10,000 unit MoWeFr@1700 SC Last administered on 07/24/18 17:53; Admin Dose 10,000 UNIT; Start 07/13/18 at 17:00 Cefepime HCl 50 ml @ 100 mls/hr Q24H IVPB Last administered on 07/26/18 18:23; Admin Dose 100 MLS/HR; Start 07/14/18 at 18:30 Albuterol/ Ipratropium (Duoneb) 3 ml Q2H RESP THERAPY PRN HHN WHEEZING Last administered on 07/21/18at 23:06; Admin Dose 3 ML; Start 07/21/18 at 22:00 Amiodarone HCl (Cordarone) 200 mg BID GTB Last administered on 07/26/18at 10:17; Admin Dose 200 MG; Start 07/22/18 at 21:00 Citric Acid/ Sodium Citrate (Bicitra) 60 ml DAILY PO Last administered on 07/26/18at 10:16; Admin Dose 60 ML; Start 07/23/18 at 09:00 Amikacin Sulfate 400 mg/Dextrose 101.6 ml @ 101.6 mls/ hr Q5D IVPB ; Start 07/30/18 at 23:00 LAURA JOSHI NP Jul 26, 2018 19:21
[2018-07-27] VITALS (25 sets, daily range): BP systolic 152–187; BP diastolic 88–112; PULSE 60–74; RESP 18–26
[2018-07-27] MEDS: LORAZEPAM 2 MG INJ IV PRN (00:30)
[2018-07-27] MEDS: VANCOMYCIN HCL 250 MG/5ML POSYG GTB SCH ×3 (06:11→17:48)
[2018-07-27] MEDS: CHOLESTYRAMINE (LIGHT) 4 GM PACKET GTB SCH ×4 (06:11→22:52)
[2018-07-27] MEDS: DICYCLOMINE 10 MG CAP PO SCH ×3 (06:11→21:02)
[2018-07-27] MEDS: METOPROLOL 50 MG TAB GTB SCH ×3 (06:12→21:01)
--- NOTE | 2018-07-27 07:52 | CONS ---
Assessment/Plan Assessment/Plan Assessment/Plan (Daily) Assessment: Septic as well as hemorrhagic shock, improving Acute respiratory failure status post intubation and repeat tracheostomy Acute blood loss anemia History of respiratory failure status post decannulation Preserved ejection fraction echocardiogram 05/10/2018 Paroxysmal atrial fibrillation Acute kidney injury Presumed mitral valve endocarditis Plpan: rate control Abx monitor BP, will adjust if repetitively elevated Consultation Date/Type/Reason Admit Date/Time May 06, 2018 at 17:38 Initial Consult Date 05/07/18 Type of Consult Cardiology Requesting Provider: ROLAND GIRON MD Date/Time of Note DATE: 07/27/18 TIME: 07:50 24 HR Interval Summary Subjective hx not possible: pt non-verbal Exam/Review of Systems Vital Signs Vitals Vital Signs Date Temp Pulse Resp B/P (MAP) Pulse Ox O2 O2 Flow FiO2 Time Delivery Rate 07/27/18 71 21 100 30 05:33 07/27/18 98.3 152/89 03:58 (110) 07/27/18 Mechanical 00:10 Ventilator Intake and Output 07/26/18 07/26/18 07/27/18 1515:00 23:00 07:00 IntakeIntake Total 780 ml 892 ml 740 ml OutputOutput Total 800 ml 600 ml 600 ml BalanceBalance -20 ml 292 ml 140 ml Exam Constitutional: non-verbal Head: normocephalic, atraumatic Neck: jvd Respiratory: clear to auscultation Cardiovascular: irregular rhythm Gastrointestinal: soft Musculoskeletal: nl extremities to inspection Labs Result Diagram: 07/26/18 0606 07/26/18 0606 Results 24hrs Laboratory Tests Test 07/26/18 13:46 Ammonia < 9 L Medications Medications Current Medications IV Flush (NS 10 ml) 10 ml PRN IV ; Start 05/06/18 at 20:30 Zinc Sulfate (Zinc Sulfate) 220 mg DAILY GTB Last administered on 07/26/18at 10:17; Admin Dose 220 MG; Start 05/07/18 at 09:00 Ondansetron HCl (Zofran Tab) 4 mg Q6H PRN GTB NAUSEA AND/OR VOMITING Last administered on 05/31/18at 16:47; Admin Dose 4 MG; Start 05/07/18 at 00:15 Multivitamins (Multivitamin) 30 ml DAILY GTB Last administered on 07/26/18at 10:17; Admin Dose 30 ML; Start 05/07/18 at 09:00 Miscellaneous Information (Pending Santyl Order For Wound Care) This patient goldman... PRN PRN XX WOUND CARE; Start 05/09/18 at 17:00 Acetaminophen (Tylenol Tab) 650 mg Q4H PRN PO MILD PAIN(1-3)OR ELEVATED TEMP L ast administered on 07/16/18 00:42; Admin Dose 650 MG; Start 05/31/18 at 13:00 Collagenase (Santyl) 1 applic DAILY TOP Last administered on 07/26/18 10:17; Admin Dose 1 APPLIC; Start 06/01/18 at 09:00 Clonidine (Catapres) 0.1 mg Q6H PRN PO ELEVATED BLOOD PRESSURE Last administered on 07/26/18 23:38; Admin Dose 0.1 MG; Start 06/03/18 at 03:30 Bumetanide (Bumex) 1 mg BID DIURETICS GTB Last administered on 07/26/18 06:06; Admin Dose 1 MG; Start 06/11/18 at 18:00; Status Hold Miscellaneous Information 1 ea NOTE XX ; Start 06/26/18 at 08:00 Dicyclomine HCl (Bentyl) 20 mg Q8 PO Last administered on 07/27/18 06:11; Admin Dose 20 MG; Start 06/27/18 at 22:00 Cholestyramine Resin (Questran Light) 4 gm 0600,1200,1800,2300 GTB Last administered on 07/27/18 06:11; Admin Dose 4 GM; Start 06/27/18 at 18:00 Lorazepam (Ativan) 0.5 mg Q4 PRN IV ANXIETY Last administered on 07/27/18 00:30; Admin Dose 0.5 MG; Start 07/01/18 at 14:00 Metoprolol Tartrate (Lopressor) 50 mg Q8 GTB Last administered on 07/27/18 06:12; Admin Dose 50 MG; Start 07/05/18 at 22:00 Amikacin Sulfate (Amikacin Iv Per Pharmacy) 1 ea NOTE XX ; Start 07/09/18 at 17:30 Vancomycin HCl (Vancomycin Oral Syringe) 125 mg Q6 GTB Last administered on 07/27/18 06:11; Admin Dose 125 MG; Start 07/09/18 at 18:00 Epoetin Zen-epbx (Retacrit (Non-Esrd)) 10,000 unit MoWeFr@1700 SC Last administered on 07/24/18 17:53; Admin Dose 10,000 UNIT; Start 07/13/18 at 17:00 Cefepime HCl 50 ml @ 100 mls/hr Q24H IVPB Last administered on 07/26/18 18:23; Admin Dose 100 MLS/HR; Start 07/14/18 at 18:30 Albuterol/ Ipratropium (Duoneb) 3 ml Q2H RESP THERAPY PRN HHN WHEEZING Last administered on 07/21/18 23:06; Admin Dose 3 ML; Start 07/21/18 at 22:00 Amiodarone HCl (Cordarone) 200 mg BID GTB Last administered on 07/26/18at 21:37; Admin Dose 200 MG; Start 07/22/18 at 21:00 Citric Acid/ Sodium Citrate (Bicitra) 60 ml DAILY PO Last administered on 07/26/18at 10:16; Admin Dose 60 ML; Start 07/23/18 at 09:00 Amikacin Sulfate 400 mg/Dextrose 101.6 ml @ 101.6 mls/ hr Q5D IVPB ; Start 07/30/18 at 23:00 NICOLAS SMYTH MD Jul 27, 2018 07:52
--- NOTE | 2018-07-27 08:14 | PN ---
DATE: 07/24/2018 SUBJECTIVE: The patient noted to be altered this morning. No other events noted. No hemoptysis, he matemesis, or hematochezia. OBJECTIVE: VITAL SIGNS: Blood pressure is 132/63, respiration 21, pulse 66, temperature 97.7. HEENT: Head is normocephalic. NECK: Supple. HEART: Regular rate. LUNGS: Show diminished breath sounds at the base. ABDOMEN: Soft, nontender to palpation without rebound or guarding. EXTREMITIES: Negative for clubbing, cyanosis, no edema. DERMATOLOGIC: No rashes. MUSCULOSKELETAL: No joint effusion. NEUROLOGIC: No change in exam. MEDICATIONS: Have been reviewed. LABORATORY DATA: Has been reviewed. IMAGING STUDIES: Have been reviewed. ASSESSMENT AND PLAN: 1. Nonoliguric acute kidney injury with previous baseline creatinine around 2 mg/dL. Etiology of ac xuan kidney injury is secondary to acute tubular necrosis. Patient is status post hemodialysis. The patient has shown adequate renal recovery. Currently off dialysis. Continue current treatment plans , supportive care, renally dose all meds. 2. Encephalopathy. Etiology may be toxic metabolic due to sepsis. The possibility of uremia as a c ontributing factor is a consideration as renal function has declined in the previous 2 weeks. I will discuss with the patient's family as well as primary team about the possibility of reinitiating hemo dialysis if mental status does not improve. 3. Hypernatremia, improved. Continue free water flushes. 4. Hypokalemia. Continue to monitor and replete. 5. Metabolic acidosis, improved. Continue Bicitra. 6. Volume overload. Continue current diuretic regimen. Monitor electrolytes and renal function hanane sely. 7. Anemia. Continue to monitor hemoglobin and hematocrit levels. 8. Mineral bone disorder, monitor calcium and phosphorus levels. 9. Ventilatory dependent respiratory failure. Vent settings have been reviewed. Continue to monito r. 10. Endocarditis. Continue current antibiotic regimen. 11. Dysphagia. Continue tube feeding. 12. Lower extremity wounds. Continue wound care. Dictated By: JEANA FINE/NTS Conf#: [id number] DID#: [id number] CC: ROLAND GIRON MD;*EndCC*
[2018-07-27] MEDS: MULTIVITAMINS 30 ML CUP GTB SCH (08:43)
[2018-07-27] MEDS: CITRIC ACID/NA CITRATE 30 ML CUP PO SCH (08:43)
[2018-07-27] MEDS: COLLAGENASE 5 GM (UD JAR) TOP SCH (08:43)
[2018-07-27] MEDS: ZINC SULFATE 220 MG CAP GTB SCH (08:44)
[2018-07-27] MEDS: AMIODARONE 200 MG TAB GTB SCH ×2 (08:44→21:02)
[2018-07-27] MEDS: BALSAM PERU/CASTOR OIL 60 GM TUBE TOP SCH ×2 (08:45→21:02)
--- NOTE | 2018-07-27 09:10 | PN ---
DATE: 07/27/2018 SUBJECTIVE: The patient is stable. No events overnight. OBJECTIVE: VITAL SIGNS: Blood pressure is 152/89, pulse 59, respirations 27, temperature 98.9. HEENT: Head is normocephalic. NECK: Supple. HEART: Regular rate. LUNGS: Show diminished breath sounds at the base. ABDOMEN: Soft, nontender to palpation. No rebound or guarding. EXTREMITIES: Negative for clubbing, cyanosis. Trace edema. DERMATOLOGIC: No rashes. MUSCULOSKELETAL: No joint effusion. NEUROLOGIC: No change in exam. MEDICATIONS: Reviewed. LABORATORY DATA: Reviewed. ASSESSMENT AND PLAN: 1. Nonoliguric acute kidney injury with previous baseline creatinine around 2 mg/dL. Etiology of ac [place] kidney injury is secondary to acute tubular necrosis. The patient is status post hemodialysis. The patient has shown adequate renal recovery. The patient's renal function, however, is fluctuated and declined in the last several days. This is likely secondary to sepsis, diuretic therapy. The pa tiecory's Bumex has been on hold. Plan is to follow up renal panel. Continue supportive care, renally dose all medications. No immediate need for renal replacement therapy. Continue to monitor closely . 2. Volume overload, improved. The patient's diuretic therapy is currently on hold. Monitor closely . 3. Anemia. Continue to monitor hemoglobin and hematocrit levels. 4. Mineral bone disorder, monitor calcium and phosphorus levels. 5. Ventilator-dependent respiratory failure. Vent settings have been reviewed. Continue to monitor . 6. Sepsis, endocarditis. The patient is completing antibiotic course. 7. Dysphagia. Continue tube feeding. 8. Encephalopathy, etiology is unclear, possibly toxic metabolic, possible component of uremia. We will monitor closely. Follow up with urology. 9. Lower extremity wounds. Continue wound care. Dictated By: JEANA BANSAL DO NR/NTS Conf#: [id number] DID#: [id number] CC: QUINTEN UMAÑA MD; ROLAND GIRON MD;*EndCC*
--- NOTE | 2018-07-27 11:41 | CONS ---
Assessment/Plan Assessment/Plan Assessment/Plan (Recall) 73 F c/ multiple medial comorbidities, who presents for evaluation of lethargy in the context of acute on chronic renal failure and severe hyponatremia. Her mental status reportedly improved w/ symptomatic management of the above, but has since declined anew..for which neurology is consulted.. Of note, she has a Hx of afib...and a report of a possible mitral vegetation on echocardiogram from 04/2018.. Recurrent toxic-metabolic encephalopathy is possible.. Seizure is not yet excluded.. MRI brain is reassuringly negative for obvious acute intracranial pathology. Ammonia wnl P: Add TSH Await EEG to evaluate for epileptiform activity Limit sedating medications where possible Other medical management and supportive care per primary Will follow clinically Consultation Date/Type/Reason Admit Date/Time May 06, 2018 at 17:38 Type of Consult Neurology Reason for Consultation ams Requesting Provider: ROLAND GIRON MD Date/Time of Note DATE: 07/27/18 TIME: 11:39 24 HR Interval Summary Free Text/Dictation Continues acute care Exam/Review of Systems Exam Vitals Vital Signs Date Temp Pulse Resp B/P (MAP) Pulse Ox O2 O2 Flow FiO2 Time Delivery Rate 07/27/18 65 09:30 07/27/18 30 09:30 07/27/18 26 99 09:05 07/27/18 98.6 162/94 Trach 07:55 (116) Collar Intake and Output 07/26/18 07/26/18 07/27/18 1515:00 23:00 07:00 IntakeIntake Total 780 ml 892 ml 740 ml OutputOutput Total 800 ml 600 ml 600 ml BalanceBalance -20 ml 292 ml 140 ml Results Result Diagram: 07/27/18 0749 07/27/18 0749 Results 24hrs Laboratory Tests Test 07/26/18 13:46 07/27/18 07:49 Ammonia < 9 L White Blood Count 9.7 # Red Blood Count 2.79 L Hemoglobin 9.0 L Hematocrit 29.8 L Mean Corpuscular Volume 106.8 H Mean Corpuscular Hemoglobin 32.3 Mean Corpuscular Hemoglobin Concent 30.2 L Red Cell Distribution Width 21.4 H Platelet Count 240 Mean Platelet Volume 10.8 H Immature Granulocytes % 0.400 Neutrophils % 77.1 H Lymphocytes % 11.6 L Monocytes % 8.0 Eosinophils % 2.5 Basophils % 0.4 Nucleated Red Blood Cells % 0.0 Immature Granulocytes # 0.040 H Neutrophils # 7.5 Lymphocytes # 1.1 Monocytes # 0.8 Eosinophils # 0.2 Basophils # 0.0 Nucleated Red Blood Cells # 0.0 Sodium Level 140 Potassium Level 3.5 Chloride Level 101 Carbon Dioxide Level 26 Anion Gap 13 Blood Urea Nitrogen 98 H Creatinine 2.52 H Est Glomerular Filtrat Rate mL/min Glucose Level 112 Calcium Level 9.8 Phosphorus Level 3.7 Magnesium Level 1.8 Medications Medication Current Medications IV Flush (NS 10 ml) 10 ml PRN IV ; Start 05/06/18 at 20:30 Zinc Sulfate (Zinc Sulfate) 220 mg DAILY GTB Last administered on 07/27/18 08:44; Admin Dose 220 MG; Start 05/07/18 at 09:00 Ondansetron HCl (Zofran Tab) 4 mg Q6H PRN GTB NAUSEA AND/OR VOMITING Last administered on 05/31/18 16:47; Admin Dose 4 MG; Start 05/07/18 at 00:15 Multivitamins (Multivitamin) 30 ml DAILY GTB Last administered on 07/27/18 08:43; Admin Dose 30 ML; Start 05/07/18 at 09:00 Miscellaneous Information (Pending Santyl Order For Wound Care) This patient goldman... PRN PRN XX WOUND CARE; Start 05/09/18 at 17:00 Acetaminophen (Tylenol Tab) 650 mg Q4H PRN PO MILD PAIN(1-3)OR ELEVATED TEMP Last administered on 07/16/18 00:42; Admin Dose 650 MG; Start 05/31/18 at 13:00 Collagenase (Santyl) 1 applic DAILY TOP Last administered on 07/27/18 08:43; Admin Dose 1 APPLIC; Start 06/01/18 at 09:00 Clonidine (Catapres) 0.1 mg Q6H PRN PO ELEVATED BLOOD PRESSURE Last administered on 07/26/18 23:38; Admin Dose 0.1 MG; Start 06/03/18 at 03:30 Bumetanide (Bumex) 1 mg BID DIURETICS GTB Last administered on 07/26/18 06:06; Admin Dose 1 MG; Start 06/11/18 at 18:00; Status Hold Miscellaneous Information 1 ea NOTE XX ; Start 06/26/18 at 08:00 Dicyclomine HCl (Bentyl) 20 mg Q8 PO Last administered on 07/27/18 06:11; Admin Dose 20 MG; Start 06/27/18 at 22:00 Cholestyramine Resin (Questran Light) 4 gm 0600,1200,1800,2300 GTB Last administered on 07/27/18 06:11; Admin Dose 4 GM; Start 06/27/18 at 18:00 Lorazepam (Ativan) 0.5 mg Q4 PRN IV ANXIETY Last administered on 07/27/18 00:30; Admin Dose 0.5 MG; Start 07/01/18 at 14:00 Metoprolol Tartrate (Lopressor) 50 mg Q8 GTB Last administered on 07/27/18 0 6:12; Admin Dose 50 MG; Start 07/05/18 at 22:00 Amikacin Sulfate (Amikacin Iv Per Pharmacy) 1 ea NOTE XX ; Start 07/09/18 at 17:30 Vancomycin HCl (Vancomycin Oral Syringe) 125 mg Q6 GTB Last administered on 07/27/18 06:11; Admin Dose 125 MG; Start 07/09/18 at 18:00 Epoetin Zen-epbx (Retacrit (Non-Esrd)) 10,000 unit MoWeFr@1700 SC Last administered on 07/24/18 17:53; Admin Dose 10,000 UNIT; Start 07/13/18 at 17:00 Cefepime HCl 50 ml @ 100 mls/hr Q24H IVPB Last administered on 07/26/18 18:23; Admin Dose 100 MLS/HR; Start 07/14/18 at 18:30 Albuterol/ Ipratropium (Duoneb) 3 ml Q2H RESP THERAPY PRN HHN WHEEZING Last administered on 07/21/18 23:06; Admin Dose 3 ML; Start 07/21/18 at 22:00 Amiodarone HCl (Cordarone) 200 mg BID GTB Last administered on 07/27/18 08:44; Admin Dose 200 MG; Start 07/22/18 at 21:00 Citric Acid/ Sodium Citrate (Bicitra) 60 ml DAILY PO Last administered on 07/27 08:43; Admin Dose 60 ML; Start 07/23/18 at 09:00 Amikacin Sulfate 400 mg/Dextrose 101.6 ml @ 101.6 mls/ hr Q5D IVPB ; Start 07/30/18 at 23:00 PANCHO ORTIZ 10, 2019 11:41
--- NOTE | 2018-07-27 12:17 | CONS ---
Assessment/Plan Assessment/Plan Hospital Course (Demo Recall) # sepsis, leukocytosis, SIRS, pulmonary, cardiac - recurrent leukocytosis due to bacteremia (below), improved - s/p septic shock due to pneumonia and C diff colitis - acute on chronic hypoxic respiratory failure, persistent - s/p reintubation 05/12/2018 - s/p re-do trach on 05/29/2018 - recurrent colonization of the anterior neck wound with ESBL+kleb, MRSA, GBS, corynebacteria on 05/06/2018 - h/o pneumonia vs. colonization of the airway by pseudomonas and ESBL+klebsiella - h/o possible, recurrent HCAP due to pseudomonas and ESBL+klebsiella - h/o recurrent HCAP due to MRSA and Enterobacter (culture of tracheal aspirate on 07/16/2017 that was collected at [facility]) . Pt took vancomycin and ceftazidime - h/o decannulation prior to admission - h/o tracheostomy on 06/11/2017 - h/o SIRS from UGIB in 2018 - h/o thoracentesis on 07/18/2017, transudative (protein <2, LDH 279) - h/o bleeding from the trach site in 2018 - h/o septic shock due to pneumonia, ARDS, bacteremia, fungemia in 2018 - h/o ARDS in 2018 - h/o smoking - COPD - h/o ILD per medical record - h/o PAF, improved - echodense structure in posterior leafleat region, differential includes calcification vs vegetation per 2D echo 07/15/2018 # GI - s/p possible ileus or enterocolitis on CT abd/pel 06/15/2018-->follow up CT on 07/15/2018 showed no evidence of urolithiasis, obstructive uropathy or diverticulitis; it showed small to moderate ascites - C diff colitis, diagnosed on 05/11/2018. Pt is on pGT vancomycin (05/11/2018-); Pt previously took IV metronidazole (05/11/2018-05/29/2018; restart 05/30/2018- 06/05/18) too - Pt had multiple negative C. diff tests at [facility] and at OSH in the past; none was positive until 05/11/2018 - dysphagia - h/o PEG placement 06/13/2018 - protein calorie malnutrition - h/o coffee ground emesis/UGIB on 12/23/2017 due to deep ulceration of distal esophagus and gastritis on EGD 12/26/2017. No e/o H. pylori - h/o possible appendicitis on CT on 11/22/2017, Pt took ertapenem (11/24/2017- 12/01/2017) - h/o extensive adhesions lower abdominal and pelvis between small bowel to each other and to colon and to abdominal wall, anterior pelvic wall chronic abscess secondary to probably an old perforated diverticulitis, torsion of small bowel around these dense adhesion causing multiple obstructive points - h/o laparoscopic exploration and extensive lysis of adhesions and drainage of anterior pelvic wall abscess 09/16/2017. Cultures were negative, no e/o malignancy. Pt took pip/tazo (09/16/2017-09/26/2017) - h/o EGD and exchange of PEG on 09/01/2017 - h/o partial obstruction mid jejunum in L anterior central pelvis with suggestion of a 3 cm soft tissue mass on CT 08/28/2017 - h/o internal stomal deep ulcer behind the internal bumper, gastritis and esophagitis, Rodriguez's cannot be ruled out, per EGD with biopsy 07/23/2017 - h/o GIB s/p flex sig showed polyp; stool OB negative on 06/29/17 - h/o stool OB positive status - h/o SBO and ileus due to pain meds - h/o mildly elevated CEA # renal/ - s/p recurrent UTI due to pseudomonas (culture on 07/09/2018)-->Garza catheter was replaced on 07/14/2018 - s/p UTI due to MDR, CRE-klebsiella on 06/15/2018. S/p renally dosed amikacin for klebsiella in her urine culture (06/17-06/22/2018) - s/p UTI due to pseudomonas and ESBL+klebsiella on 06/09/2018, Pt took one dose of fosfomycin on 06/10/2018 and cipro 06/12-06/15/2018 - anasarca - started on HD on 05/15/2018, via Juan in R groin - recurrent NATHAN on CKD - 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 Her strain of CRE was sensitive to colistin, Avycaz, and Vabomere but resistant to Zerbaxa (reported on 05/19/2018) - metabolic acidosis - adrenal insufficiency - h/o vaginal bleed in 2018 - h/o colonization of urinary tract by ESBL+klebsiella, VRE - h/o recurrent, symptomatic UTI due to carbapenem-resistant kleb (MDR strain) per urine culture 10/04/17, 10/09/17, 10/21/2017, P took colistin (10/09/2017- 10/15/2017), fosfomycin for carbapenemase-producing klebsiella and VRE on 10/25/2017 and 10/28/2017 - h/o funguria - h/o urinary retention # bloodstream infections - Bacteremia d/t pseudomonas aeruginosa 07/09/18, 07/10/18, 07/11/18, 07/12/18, 07/13/18, 07/15/18, 07/17/18. This is associated with PICC because the blood culture from PICC and phlebotomy on 07/13/2018 both grew the same bacteria. 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 improved. Probable manifestation of endocarditis. Pt declined MRI on 08/06/2017 - h/o infection of R toes due to pseudomonas. coagulase negative Staph likely a colonizer - h/o intertrigo of the groin, resolved with nystatin powder - h/o scabies, locally crusted lesion over L scapula, s/p permethrin cream and pGT ivermectin on 08/11/2017, 08/12/2017, 08/19/2017. Repeat skin scraping on 08/21/2017 was negative for scabies # psych, neuro - chronic toxic metabolic encephalopathy, progressing - MRI brain shows no acute intracranial pathology - decreased hearing b/l - h/o critical illness polyneuropathy - anxiety/depression, bipolar d/o, seen by Psychiatry in the past - chronic pain syndrome - h/o medical non-compliance: she would refuse her medications, treatment and straight catheterization in 2018 - complete opacification of the bilateral mastoid air cells per MRI Brain 07/27/2018 # hematological, vascular - chronic anemia requiring blood transfusion intermittently - macrocytic anemia - aneurysmal dilatation of the distal aorta visualized on CT 06/15/2018 - PVD Recommendations: - Continue amikacin IV (07/09/2018-). Pt had a strain of pseudomonas that was resistant to all except for aminoglycoside - Continue renally dosed cefepime (07/14/2018-); Pt needs double coverage because amikacin alone has not cleared her bacteremia. Some strains of pseudomonas she had were pansensitive while other strains of pseudomonas were resistant to many antibiotics (MDR) - Pt will require a prolonged course of abx given likely vegetation on 2D echo; plan for 6 weeks - JADE Villareal requested for Micro on 07/26/18 to check susceptibility of pseudomonas from blood cx on 07/17/2018 to avycaz, zerbaxa, doripenem and colistin - I called and spoke with micro today to please run these and release sensitivities - I spent 15 minutes on the telephone while micro investigated for the specimen. Per micro, they will work on this today. - Okay to place PICC line from ID standpoint for prolonged IV abx - Continue vancomycin pGT (07/09/18/ - ) while on IV abx d/t pt's h/o C. diff. 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 Although it may be difficult to distinguish between an old lesion vs a new lesion. - Appreciate Nuero eval - F/u EEG results - Monitor CrCl (trending down today) - Consider goals of continued aggressive care; overall prognosis appears poor especially in light of recent echo findings Management d/w JAYANT Jarrett, micro personnel, and with Dr. Doyle via [email or web address] messaging. Total time spent today was 45 minutes. Consultation Date/Type/Reason Admit Date/Time May 06, 2018 at 17:38 Initial Consult Date 05/07/18 Type of Consult ID Requesting Provider: ROLAND GIRON MD Date/Time of Note DATE: 07/27/18 TIME: 12:12 24 HR Interval Summary Free Text/Dictation Patient has remained afebrile. WBC improved,, 9.7 today. Subjective hx not possible: pt non-verbal Exam/Review of Systems Exam Vitals Vital Signs Date Temp Pulse Resp B/P (MAP) Pulse Ox O2 O2 Flow FiO2 Time Delivery Rate 07/27/18 98.8 73 20 185/106 100 Trach 12:04 (132) Collar 07/27/18 30 11:15 Allergies Coded Allergies shellfish derived (Unverified Allergy, Unknown, 05/06/18) Intake and Output 07/26/18 07/26/18 07/27/18 1515:00 23:00 07:00 IntakeIntake Total 780 ml 892 ml 740 ml OutputOutput Total 800 ml 600 ml 600 ml BalanceBalance -20 ml 292 ml 140 ml Exam Constitutional: well developed, frail, alert, other (chronically debillitated); Psych: other (flat affect, eye tracking me but no attempts to communicate today) Head: normocephalic, atraumatic Eyes: nl conjunctiva, nl lids ENMT: nl external ears & nose, nl nasal mucosa & septum, other (unable to examine op, kept mouth closed) Neck: supple, non-tender, other (trach midline, site is c/d/i, on vent) Respiratory: normal air movement (tachypneic 30s currently), diminished breath sounds (bilaterally, anteriorly), wheezing (inspiratory Lmid and LLL) Cardiovascular: regular rate and rhythm, nl pulses, edema (generalized ) Gastrointestinal: soft, non-tender (appears nontender, patient did not react when I palpated), bowel sounds (normoactive), other (PEG site is c/d/i; there was a small amt of stool beneath patient - it is soft/mushy - informed nsg) Genitourinary - Female: other (f/c draining yellow urine) Musculoskeletal: muscle weakness Extremities: normal pulses, edema, other (BLE foot drop) Neurological: lethargic (eyes open tracking me), other (did not attempt to communicate nor follow commands.) Skin: ecchymosis, other (R foot wrapped with kerlix and c/d/i, L [place] with a c/d/i kerlix dressing in place.) Results Result Diagram: 07/27/18 0749 07/27/18 0749 Results 24hrs Laboratory Tests Test 07/26/18 13:46 07/27/18 07:49 07/27/18 12:10 Ammonia < 9 L White Blood Count 9.7 # Red Blood Count 2.79 L Hemoglobin 9.0 L Hematocrit 29.8 L Mean Corpuscular Volume 106.8 H Mean Corpuscular Hemoglobin 32.3 Mean Corpuscular 30.2 L Hemoglobin Concent Red Cell Distribution Width 21.4 H Platelet Count 240 Mean Platelet Volume 10.8 H Immature Granulocytes % 0.400 Neutrophils % 77.1 H Lymphocytes % 11.6 L Monocytes % 8.0 Eosinophils % 2.5 Basophils % 0.4 Nucleated Red Blood Cells % 0.0 Immature Granulocytes # 0.040 H Neutrophils # 7.5 Lymphocytes # 1.1 Monocytes # 0.8 Eosinophils # 0.2 Basophils # 0.0 Nucleated Red Blood Cells # 0.0 Sodium Level 140 Potassium Level 3.5 Chloride Level 101 Carbon Dioxide Level 26 Anion Gap 13 Blood Urea Nitrogen 98 H Creatinine 2.52 H Est Glomerular Filtrat Rate mL/min Glucose Level 112 Calcium Level 9.8 Phosphorus Level 3.7 Magnesium Level 1.8 Lab Scanned Report [facility] LAB Imaging Imaging MRI Brain 07/26/18 IMPRESSION: 1. Limited examination secondary to motion artifact. 2. Otherwise, no acute intracranial pathology. 3. Mild to moderate volume loss with mild chronic microvascular ischemic changes. 4. Complete opacification of the bilateral mastoid air cells. Medications Medication Current Medications IV Flush (NS 10 ml) 10 ml PRN IV ; Start 05/06/18 at 20:30 Zinc Sulfate (Zinc Sulfate) 220 mg DAILY GTB Last administered on 07/27/18 0 8:44; Admin Dose 220 MG; Start 05/07/18 at 09:00 Ondansetron HCl (Zofran Tab) 4 mg Q6H PRN GTB NAUSEA AND/OR VOMITING Last administered on 05/31/18 16:47; Admin Dose 4 MG; Start 05/07/18 at 00:15 Multivitamins (Multivitamin) 30 ml DAILY GTB Last administered on 07/27/18 08:43; Admin Dose 30 ML; Start 05/07/18 at 09:00 Miscellaneous Information (Pending Santyl Order For Wound Care) This patient goldman... PRN PRN XX WOUND CARE; Start 05/09/18 at 17:00 Acetaminophen (Tylenol Tab) 650 mg Q4H PRN PO MILD PAIN(1-3)OR ELEVATED TEMP Last administered on 07/16/18 00:42; Admin Dose 650 MG; Start 05/31/18 at 13:00 Collagenase (Santyl) 1 applic DAILY TOP Last administered on 07/27/18 08:43; Admin Dose 1 APPLIC; Start 06/01/18 at 09:00 Clonidine (Catapres) 0.1 mg Q6H PRN PO ELEVATED BLOOD PRESSURE Last administered on 07/26/18 23:38; Admin Dose 0.1 MG; Start 06/03/18 at 03:30 Bumetanide (Bumex) 1 mg BID DIURETICS GTB Last administered on 07/26/18 06:06; Admin Dose 1 MG; Start 06/11/18 at 18:00; Status Hold Miscellaneous Information 1 ea NOTE XX ; Start 06/26/18 at 08:00 Dicyclomine HCl (Bentyl) 20 mg Q8 PO Last administered on 07/27/18 06:11; Admin Dose 20 MG; Start 06/27/18 at 22:00 Cholestyramine Resin (Questran Light) 4 gm 0600,1200,1800,2300 GTB Last administered on 07/27/18 06:11; Admin Dose 4 GM; Start 06/27/18 at 18:00 Lorazepam (Ativan) 0.5 mg Q4 PRN IV ANXIETY Last administered on 07/27/18 00:30; Admin Dose 0.5 MG; Start 07/01/18 at 14:00 Metoprolol Tartrate (Lopressor) 50 mg Q8 GTB Last administered on 07/27/18 06:12; Admin Dose 50 MG; Start 07/05/18 at 22:00 Amikacin Sulfate (Amikacin Iv Per Pharmacy) 1 ea NOTE XX ; Start 07/09/18 at 17:30 Vancomycin HCl (Vancomycin Oral Syringe) 125 mg Q6 GTB Last administered on 07/27/18at 06:11; Admin Dose 125 MG; Start 07/09/18 at 18:00 Epoetin Zen-epbx (Retacrit (Non-Esrd)) 10,000 unit MoWeFr@1700 SC Last adminis tered on 07/24/18 17:53; Admin Dose 10,000 UNIT; Start 07/13/18 at 17:00 Cefepime HCl 50 ml @ 100 mls/hr Q24H IVPB Last administered on 07/26/18 18:23; Admin Dose 100 MLS/HR; Start 07/14/18 at 18:30 Albuterol/ Ipratropium (Duoneb) 3 ml Q2H RESP THERAPY PRN HHN WHEEZING Last administered on 07/21/18 23:06; Admin Dose 3 ML; Start 07/21/18 at 22:00 Amiodarone HCl (Cordarone) 200 mg BID GTB Last administered on 07/27/18at 08:44; Admin Dose 200 MG; Start 07/22/18 at 21:00 Citric Acid/ Sodium Citrate (Bicitra) 60 ml DAILY PO Last administered on 07/27/18 08:43; Admin Dose 60 ML; Start 07/23/18 at 09:00 Amikacin Sulfate 400 mg/Dextrose 101.6 ml @ 101.6 mls/ hr Q5D IVPB ; Start 07/30/18 at 23:00 KENA MÉNDEZ NP Jul 27, 2018 12:17
--- NOTE | 2018-07-27 15:20 | EN ---
Date/Time of Note Date/Time of Note DATE: 07/27/18 TIME: 15:20 Event Note Medicine Medicine Event Note I reviewed EMR. I coordinated with ENTERTAINMENT DANCER Villareal. I directed care to ENTERTAINMENT DANCER today via telemediq. MANN VALDEZ MD Jul 27, 2018 15:20
--- NOTE | 2018-07-27 16:18 | PN ---
Date/Time of Note Date/Time of Note DATE: 07/27/18 TIME: 16:13 Assessment/Plan VTE Prophylaxis Risk score (from Ns)>0 risk: 7 [place] [facility] [place] Pharmacological prophylaxis: NA/contraindicated Pharm contraindication: anticoag not tolerated Lines/Catheters IV C[facility]ter Type (from [facility] Saline Lock Urinary Cath still in place: Yes Reason Cath still needed: urinary retention Assessment/Plan Hospital Course Patient is lethargic but easily arousable, continues on ventilatory support without any distress. DC planning to subacute when bed is available. Assessment/Plan -Persistent leukocytosis with Pseudomonas bacteremia 2 to PICC line infection, continue antibiotics per ID. Dr. Doyle is following in infection disease consultation. 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 TTE 07/16/18 with notion of echodense structure on the mitral valve, calcification vs vegetation. Dr. Scanlon is following in cardiology consultation. Patient needs IV cefepime and amikacin for treatment of bacteremia and presumed endocarditis for 5 weeks until 08/22/2018 per ID recommendations. -Hypothyroidism, continue levothyroxine. -MDR Klebsiella urinary tract infection, completed treatment with amikacin. -Atrial fibrillation was rapid ventricular response, patient remains in sinus rhythm continue metoprolol and amiodarone. -S/p septic shock secondary to urinary tract infection, anterior neck soft tissu e infection, and C. difficile colitis. -C-diff colitis,resolved. -Acute respiratory failure requiring intubation and ventilatory support. Dr. Lambert is following in pulmonology consultation. -S/p tracheostomy on 05/29/18. -Acute kidney injury on chronic kidney disease. Started on HD this admission with recovery of renal function. Dr. Mckeon is following in nephrology cons ultation. -Anemia of chronic inflammation, stool for OB is negative, status post blood transfusion. Continue Epogen. -Metabolic acidosis, resolved. -Acute diastolic congestive heart failure. -Paroxysmal atrial fibrillation -COPD -Dysphagia with PEG. -G-tube mild malfunction, changed by GI Dr. Carolina is following in gastroenterology consultation. -Obesity -Critical care myopathy Further recommendations based on clinical course. Plan of care discussed with Dr. Eisenberg. Result Diagram: 07/27/18 0749 07/27/18 0749 Results 24hrs Laboratory Tests Test 07/27/18 07:49 07/27/18 12:10 White Blood Count 9.7 # Red Blood Count 2.79 L Hemoglobin 9.0 L Hematocrit 29.8 L Mean Corpuscular Volume 106.8 H Mean Corpuscular Hemoglobin 32.3 Mean Corpuscular Hemoglobin Concent 30.2 L Red Cell Distribution Width 21.4 H Platelet Count 240 Mean Platelet Volume 10.8 H Immature Granulocytes % 0.400 Neutrophils % 77.1 H Lymphocytes % 11.6 L Monocytes % 8.0 Eosinophils % 2.5 Basophils % 0.4 Nucleated Red Blood Cells % 0.0 Immature Granulocytes # 0.040 H Neutrophils # 7.5 Lymphocytes # 1.1 Monocytes # 0.8 Eosinophils # 0.2 Basophils # 0.0 Nucleated Red Blood Cells # 0.0 Sodium Level 140 Potassium Level 3.5 Chloride Level 101 Carbon Dioxide Level 26 Anion Gap 13 Blood Urea Nitrogen 98 H Creatinine 2.52 H Est Glomerular Filtrat Rate mL/min Glucose Level 112 Calcium Level 9.8 Phosphorus Level 3.7 Magnesium Level 1.8 Thyroid Stimulating Hormone (TSH) 44.500 H Lab Scanned Report REFERENCE LAB Exam/Review of Systems Exam Vitals Vital Signs Date Temp Pulse Resp B/P (MAP) Pulse Ox O2 O2 Flow FiO2 Time Delivery Rate 07/27/18 98.8 65 20 169/97 98 Trach 15:59 (121) Collar 07/27/18 30 15:40 Intake and Output 07/26/18 07/26/18 07/27/18 1515:00 23:00 07:00 IntakeIntake Total 780 ml 892 ml 740 ml OutputOutput Total 800 ml 600 ml 600 ml BalanceBalance -20 ml 292 ml 140 ml Exam Constitutional: alert, oriented Neck: other (Tracheostomy) Respiratory: diminished breath sounds Cardiovascular: regular rate and rhythm Gastrointestinal: soft, non-tender, other (G-tube) Extremities: normal pulses Neurological: nl mental status Results Results 24hrs Laboratory Tests Test 07/27/18 07:49 07/27/18 12:10 White Blood Count 9.7 # Red Blood Count 2.79 L Hemoglobin 9.0 L Hematocrit 29.8 L Mean Corpuscular Volume 106.8 H Mean Corpuscular Hemoglobin 32.3 Mean Corpuscular Hemoglobin Concent 30.2 L Red Cell Distribution Width 21.4 H Platelet Count 240 Mean Platelet Volume 10.8 H Immature Granulocytes % 0.400 Neutrophils % 77.1 H Lymphocytes % 11.6 L Monocytes % 8.0 Eosinophils % 2.5 Basophils % 0.4 Nucleated Red Blood Cells % 0.0 Immature Granulocytes # 0.040 H Neutrophils # 7.5 Lymphocytes # 1.1 Monocytes # 0.8 Eosinophils # 0.2 Basophils # 0.0 Nucleated Red Blood Cells # 0.0 Sodium Level 140 Potassium Level 3.5 Chloride Level 101 Carbon Dioxide Level 26 Anion Gap 13 Blood Urea Nitrogen 98 H Creatinine 2.52 H Est Glomerular Filtrat Rate mL/min Glucose Level 112 Calcium Level 9.8 Phosphorus Level 3.7 Magnesium Level 1.8 Thyroid Stimulating Hormone (TSH) 44.500 H Lab Scanned Report REFERENCE LAB Medications Medication Current Medications IV Flush (NS 10 ml) 10 ml PRN IV ; Start 05/06/18 at 20:30 Zinc Sulfate (Zinc Sulfate) 220 mg DAILY GTB Last administered on 07/27/18 08:44; Admin Dose 220 MG; Start 05/07/18 at 09:00 Ondansetron HCl (Zofran Tab) 4 mg Q6H PRN GTB NAUSEA AND/OR VOMITING Last administered on 05/31/18 16:47; Admin Dose 4 MG; Start 05/07/18 at 00:15 Multivitamins (Multivitamin) 30 ml DAILY GTB Last administered on 07/27/18 08:43; Admin Dose 30 ML; Start 05/07/18 at 09:00 Miscellaneous Information (Pending Santyl Order For Wound Care) This patient goldman... PRN PRN XX WOUND CARE; Start 05/09/18 at 17:00 Acetaminophen (Tylenol Tab) 650 mg Q4H PRN PO MILD PAIN(1-3)OR ELEVATED TEMP Last administered on 07/16/18 00:42; Admin Dose 650 MG; Start 05/31/18 at 13:00 Collagenase (Santyl) 1 applic DAILY TOP Last administered on 07/27/18 08:43; Admin Dose 1 APPLIC; Start 06/01/18 at 09:00 Clonidine (Catapres) 0.1 mg Q6H PRN PO ELEVATED BLOOD PRESSURE Last administered on 07/27/18 13:13; Admin Dose 0.1 MG; Start 06/03/18 at 03:30 Bumetanide (Bumex) 1 mg BID DIURETICS GTB Last administered on 07/26/18 06:06; Admin Dose 1 MG; Start 06/11/18 at 18:00; Status Hold Miscellaneous Information 1 ea NOTE XX ; Start 06/26/18 at 08:00 Dicyclomine HCl (Bentyl) 20 mg Q8 PO Last administered on 07/27/18 13:13; Admin Dose 20 MG; Start 06/27/18 at 22:00 Cholestyramine Resin (Questran Light) 4 gm 0600,1200,1800,2300 GTB Last administered on 07/27/18 12:59; Admin Dose 4 GM; Start 06/27/18 at 18:00 Lorazepam (Ativan) 0.5 mg Q4 PRN IV ANXIETY Last administered on 07/27/18 00:30; Admin Dose 0.5 MG; Start 07/01/18 at 14:00 Metoprolol Tartrate (Lopressor) 50 mg Q8 GTB Last administered on 07/27/18 13:13; Admin Dose 50 MG; Start 07/05/18 at 22:00 Amikacin Sulfate (Amikacin Iv Per Pharmacy) 1 ea NOTE XX ; Start 07/09/18 at 17:30 Vancomycin HCl (Vancomycin Oral Syringe) 125 mg Q6 GTB Last administered on 07/27/18 13:12; Admin Dose 125 MG; Start 07/09/18 at 18:00 Epoetin Zen-epbx (Retacrit (Non-Esrd)) 10,000 unit MoWeFr@1700 SC Last administered on 07/24/18 17:53; Admin Dose 10,000 UNIT; Start 07/13/18 at 17:00 Cefepime HCl 50 ml @ 100 mls/hr Q24H IVPB Last administered on 07/26/18 18:23; Admin Dose 100 MLS/HR; Start 07/14/18 at 18:30 Albuterol/ Ipratropium (Duoneb) 3 ml Q2H RESP THERAPY PRN HHN WHEEZING Last administered on 07/21/18 23:06; Admin Dose 3 ML; Start 07/21/18 at 22:00 Amiodarone HCl (Cordarone) 200 mg BID GTB Last administered on 07/27/18 08:44; Admin Dose 200 MG; Start 07/22/18 at 21:00 Citric Acid/ Sodium Citrate (Bicitra) 60 ml DAILY PO Last administered on 07/27/18at 08:43; Admin Dose 60 ML; Start 07/23/18 at 09:00 Amikacin Sulfate 400 mg/Dextrose 101.6 ml @ 101.6 mls/ hr Q5D IVPB ; Start 07/30/18 at 23:00 Levothyroxine Sodium (Synthroid) 75 mcg DAILY@06 GTB ; Start 07/28/18 at 06:00 GRISELDA DENNIS Jul 27, 2018 16:18
[2018-07-27] MEDS ORDERED: LIDOCAINE 1% (MPF) 5 ML VIAL SC ONE (17:00)
[2018-07-27] MEDS: CEFEPIME 2GM/50 ML (PMX) 50 ML IVPB SCH (17:48)
[2018-07-27] MEDS: EPOETIN ALFA-EPBX (NON-ESRD 10,000 UNIT/ML VIAL SC SCH (17:50)
[2018-07-28] VITALS (26 sets, daily range): BP systolic 105–185; BP diastolic 68–108; PULSE 64–87; RESP 20–28
[2018-07-28] MEDS: CHOLESTYRAMINE (LIGHT) 4 GM PACKET GTB SCH ×4 (05:00→23:37)
[2018-07-28] MEDS: LEVOTHYROXINE 75 MCG TAB GTB SCH (06:19)
[2018-07-28] MEDS: DICYCLOMINE 10 MG CAP PO SCH ×3 (06:20→21:09)
[2018-07-28] MEDS: VANCOMYCIN HCL 250 MG/5ML POSYG GTB SCH ×5 (06:20→23:41)
[2018-07-28] MEDS: METOPROLOL 50 MG TAB GTB SCH ×3 (06:20→21:08)
--- NOTE | 2018-07-28 06:43 | EEG ---
EEG NOTE Report Details DATE OF TEST: 07/27/2018 HISTORY: The patient is a 73-year-old F who presents with altered mental status. This EEG is requested to evaluate for seizures. SEDATION: None. CONDITIONS OF RECORDING: This EEG was recorded digitally on the [employer] Glanse machine, using the International 10-20 System of electrodes plus anterior temporals and [place]. STATES SAMPLED: Lethargic. FINDINGS: The background is grossly symmetric..predominated by polymorphic theta and delta activity. There are abundant epileptiform discharges, with brief runs of poorly localized subclinical seizure activity without annotated clinical correlate. The normal vaeucoxd-ln-iaontkcjl frequency-amplitude gradient was absent. Hyperventilation was not performed. IMPRESSION: Abnormal electroencephalogram due to: diffuse slowing, and brief poorly localized seizures without annotated clinical correlate. PANCHO ORTIZ Jul 28, 2018 06:43
--- NOTE | 2018-07-28 08:40 | PN ---
DATE: 07/28/2018 SUBJECTIVE: The patient is stable, no events overnight. OBJECTIVE: VITAL SIGNS: Blood pressure is 183/108, respiratory rate 20, pulse 70, temperature 98.3. HEENT: Head is normocephalic. NECK: Supple. HEART: Regular rate. LUNGS: Show diminished breath sounds at the base. ABDOMEN: Soft, nontender to palpation without rebound or guarding. EXTREMITIES: Negative for clubbing, cyanosis, no edema. DERMATOLOGIC: No rashes. MUSCULOSKELETAL: No joint effusion. NEUROLOGIC: No change in exam. MEDICATIONS: Have been reviewed. LABORATORY DATA: Has been reviewed. ASSESSMENT AND PLAN: 1. Nonoliguric acute kidney injury with previous baseline creatinine around 2 mg/dL. Etiology of ac [place] kidney injury is secondary to acute tubular necrosis. The patient is status post hemodialysis. The patient has shown adequate renal recovery. Subsequently, dialysis was discontinued. However, th e patient's renal function over the past 2 weeks has fluctuated. Creatinine appears to be stabilizin g around 2.3 to 2.5 mg/dL. We will continue to monitor renal function closely. Will continue to mon itor mental status closely. There is no immediate need for renal replacement therapy at this time. Continue to monitor. 2. Volume overload, improved. Continue intermittent diuretic therapy. 3. Anemia. Monitor hemoglobin and hematocrit levels. 4. Mineral bone disorder. Monitor calcium and phosphorus levels. 5. ventilator dependent respiratory failure. Vent settings have been reviewed. Continue to monitor . 6. Sepsis, endocarditis. The patient is completing antibiotic course. 7. Dysphagia. Continue to monitor. 8. Encephalopathy, etiology is unclear, possibly toxic metabolic, questionable component of uremia. Continue to monitor. Follow up with urology. 9. Lower extremity wounds. Continue wound care. Dictated By: JEANA BANSAL DO NR/NTS Conf#: [id number] DID#: [id number] CC: ROLAND GIRON MD;*EndCC*
[2018-07-28] MEDS: BALSAM PERU/CASTOR OIL 60 GM TUBE TOP SCH ×2 (08:59→21:09)
[2018-07-28] MEDS: ZINC SULFATE 220 MG CAP GTB SCH (08:59)
[2018-07-28] MEDS: COLLAGENASE 5 GM (UD JAR) TOP SCH (08:59)
[2018-07-28] MEDS: MULTIVITAMINS 30 ML CUP GTB SCH (08:59)
[2018-07-28] MEDS: CITRIC ACID/NA CITRATE 30 ML CUP PO SCH (08:59)
[2018-07-28] MEDS: AMIODARONE 200 MG TAB GTB SCH ×2 (09:38→21:09)
--- NOTE | 2018-07-28 10:46 | CONS ---
Assessment/Plan Assessment/Plan Hospital Course (Demo Recall) # sepsis, leukocytosis, SIRS, pulmonary, cardiac - recurrent leukocytosis due to bacteremia (below), improved - s/p septic shock due to pneumonia and C diff colitis - acute on chronic hypoxic respiratory failure, persistent - s/p reintubation 05/12/2018 - s/p re-do trach on 05/29/2018 - recurrent colonization of the anterior neck wound with ESBL+kleb, MRSA, GBS, corynebacteria on 05/06/2018 - h/o pneumonia vs. colonization of the airway by pseudomonas and ESBL+klebsiella - h/o possible, recurrent HCAP due to pseudomonas and ESBL+klebsiella - h/o recurrent HCAP due to MRSA and Enterobacter (culture of tracheal aspirate on 07/16/2017 that was collected at [facility]) . Pt took vancomycin and ceftazidime - h/o decannulation prior to admission - h/o tracheostomy on 06/11/2017 - h/o SIRS from UGIB in 2018 - h/o thoracentesis on 07/18/2017, transudative (protein <2, LDH 279) - h/o bleeding from the trach site in 2018 - h/o septic shock due to pneumonia, ARDS, bacteremia, fungemia in 2018 - h/o ARDS in 2018 - h/o smoking - COPD - h/o ILD per medical record - h/o PAF, improved - echodense structure in posterior leafleat region, differential includes calcification vs vegetation per 2D echo 07/15/2018 # GI - s/p possible ileus or enterocolitis on CT abd/pel 06/15/2018-->follow up CT on 07/15/2018 showed no evidence of urolithiasis, obstructive uropathy or diverticulitis; it showed small to moderate ascites - C diff colitis, diagnosed on 05/11/2018. Pt is on pGT vancomycin (05/11/2018-); Pt previously took IV metronidazole (05/11/2018-05/29/2018; restart 05/30/2018- 06/05/18) too - Pt had multiple negative C. diff tests at [facility] and at OSH in the past; none was positive until 05/11/2018 - dysphagia - h/o PEG placement 06/13/2018 - protein calorie malnutrition - h/o coffee ground emesis/UGIB on 12/23/2017 due to deep ulceration of distal esophagus and gastritis on EGD 12/26/2017. No e/o H. pylori - h/o possible appendicitis on CT on 11/22/2017, Pt took ertapenem (11/24/2017- 12/01/2017) - h/o extensive adhesions lower abdominal and pelvis between small bowel to each other and to colon and to abdominal wall, anterior pelvic wall chronic abscess secondary to probably an old perforated diverticulitis, torsion of small bowel around these dense adhesion causing multiple obstructive points - h/o laparoscopic exploration and extensive lysis of adhesions and drainage of anterior pelvic wall abscess 09/16/2017. Cultures were negative, no e/o malignancy. Pt took pip/tazo (09/16/2017-09/26/2017) - h/o EGD and exchange of PEG on 09/01/2017 - h/o partial obstruction mid jejunum in L anterior central pelvis with suggestion of a 3 cm soft tissue mass on CT 08/28/2017 - h/o internal stomal deep ulcer behind the internal bumper, gastritis and esophagitis, Rodriguez's cannot be ruled out, per EGD with biopsy 07/23/2017 - h/o GIB s/p flex sig showed polyp; stool OB negative on 06/29/17 - h/o stool OB positive status - h/o SBO and ileus due to pain meds - h/o mildly elevated CEA # renal/ - s/p recurrent UTI due to pseudomonas (culture on 07/09/2018)-->Garza catheter was replaced on 07/14/2018 - s/p UTI due to MDR, CRE-klebsiella on 06/15/2018. S/p renally dosed amikacin for klebsiella in her urine culture (06/17-06/22/2018) - s/p UTI due to pseudomonas and ESBL+klebsiella on 06/09/2018, Pt took one dose of fosfomycin on 06/10/2018 and cipro 06/12-06/15/2018 - anasarca - started on HD on 05/15/2018, via Juan in R groin - recurrent NATHAN on CKD - 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 Her strain of CRE was sensitive to colistin, Avycaz, and Vabomere but resistant to Zerbaxa (reported on 05/19/2018) - metabolic acidosis - adrenal insufficiency - h/o vaginal bleed in 2018 - h/o colonization of urinary tract by ESBL+klebsiella, VRE - h/o recurrent, symptomatic UTI due to carbapenem-resistant kleb (MDR strain) per urine culture 10/04/17, 10/09/17, 10/21/2017, P took colistin (10/09/2017- 10/15/2017), fosfomycin for carbapenemase-producing klebsiella and VRE on 10/25/2017 and 10/28/2017 - h/o funguria - h/o urinary retention # bloodstream infections - Bacteremia d/t pseudomonas aeruginosa 07/09/18, 07/10/18, 07/11/18, 07/12/18, 07/13/18, 07/15/18, 07/17/18. This is associated with PICC because the blood culture from PICC and phlebotomy on 07/13/2018 both grew the same bacteria. 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 improved. Probable manifestation of endocarditis. Pt declined MRI on 08/06/2017 - h/o infection of R toes due to pseudomonas. coagulase negative Staph likely a colonizer - h/o intertrigo of the groin, resolved with nystatin powder - h/o scabies, locally crusted lesion over L scapula, s/p permethrin cream and pGT ivermectin on 08/11/2017, 08/12/2017, 08/19/2017. Repeat skin scraping on 08/21/2017 was negative for scabies # psych, neuro - chronic toxic metabolic encephalopathy, progressing - MRI brain shows no acute intracranial pathology - EEG 07/27/18 showed abnormal electroencephalogram due to: diffuse slowing, and brief poorly localized seizures without annotated clinical correlate. - decreased hearing b/l - h/o critical illness polyneuropathy - anxiety/depression, bipolar d/o, seen by Psychiatry in the past - chronic pain syndrome - h/o medical non-compliance: she would refuse her medications, treatment and straight catheterization in 2018 - complete opacification of the bilateral mastoid air cells per MRI Brain 07/27/2018 # hematological, vascular - chronic anemia requiring blood transfusion intermittently - macrocytic anemia - aneurysmal dilatation of the distal aorta visualized on CT 06/15/2018 - PVD Recommendations: - Continue amikacin IV (07/09/2018-). Pt had a strain of pseudomonas that was resistant to all except for aminoglycoside - Continue renally dosed cefepime (07/14/2018-); Pt needs double coverage because amikacin alone has not cleared her bacteremia. Some strains of pseudomonas she had were pansensitive while other strains of pseudomonas were resistant to many antibiotics (MDR) - Pt will require a prolonged course of abx given likely vegetation on 2D echo; plan for 6 weeks - JADE Villareal requested for Micro on 07/26/18 to check susceptibility of pseudomonas from blood cx on 07/17/2018 to avycaz, zerbaxa, doripenem and colistin - I called and spoke with micro 07/27/18 to please run these and release sensitivities - Awaiting sensitivities release. - Okay to place PICC line from ID standpoint for prolonged IV abx - Continue vancomycin pGT (07/09/18/ - ) while on IV abx d/t pt's h/o C. diff. Pt completed IV metronidazole (07/09/18-07/15/18) - We recommend Audiology testing for this pt who will likely require automated weaver aminoglycoside - Consider MARCIAL to r/o endocarditis so as to possibly limit pt's course of antib iotics/exposure to nephrotoxic agents. Although it may be difficult to distinguish between an old lesion vs a new lesion. - Appreciate Nuero eval - Monitor CrCl (trending down today) - Consider goals of continued aggressive care; overall prognosis appears poor especially in light of recent echo findings Management d/w Dr. Doyle via [employer] messaging. Consultation Date/Type/Reason Admit Date/Time May 06, 2018 at 17:38 Initial Consult Date 05/07/18 Type of Consult ID Requesting Provider: ROLAND GIRON MD Date/Time of Note DATE: 07/28/18 TIME: 10:41 24 HR Interval Summary Free Text/Dictation patient has remained afebrile, wbc 10.7. EEG showed diffuse slowling and brief poorly localized seizures without annotated clinical correlate. Subjective hx not possible: pt non-verbal Exam/Review of Systems Exam Vitals Vital Signs Date Temp Pulse Resp B/P (MAP) Pulse Ox O2 O2 Flow FiO2 Time Delivery Rate 07/28/18 66 158/90 09:37 (112) 07/28/18 98.3 20 100 Trach 07:54 Collar 07/28/18 30 05:18 Allergies Coded Allergies shellfish derived (Unverified Allergy, Unknown, 05/06/18) Intake and Output 07/27/18 07/27/18 07/28/18 1515:00 23:00 07:00 IntakeIntake Total 740 ml OutputOutput Total 600 ml BalanceBalance 140 ml Exam Constitutional: well developed, frail, alert, other (chronically debilitated); Psych: other (flat affect, opened eyes and closed them again during assessment) Head: normocephalic, atraumatic Eyes: nl conjunctiva, nl lids ENMT: nl external ears & nose, nl nasal mucosa & septum, other (unable to examine op, kept mouth closed) Neck: supple, non-tender, other (trach midline, site is c/d/i, on vent) Respiratory: normal air movement, diminished breath sounds (bilaterally, anteriorly) no: wheezing Cardiovascular: regular rate and rhythm, nl pulses, edema (generalized) Gastrointestinal: soft, non-tender (appears nontender, patient did not react when I palpated), bowel sounds (normoactive), other (PEG site is c/d/i;) Genitourinary - Female: other (f/c draining yellow urine) Musculoskeletal: muscle weakness Extremities: normal pulses, edema, other (BLE foot drop) Neurological: lethargic (sleeping, opened eyes and closed them again during assessment), other (did not attempt to communicate nor follow commands.) Skin: ecchymosis, other (R foot wrapped with kerlix and c/d/i, L [place] with a c/d/i kerlix dressing in place.) Results Result Diagram: 07/28/18 0611 07/28/18 0611 Results 24hrs Laboratory Tests Test 07/27/18 12:10 07/28/18 06:11 Lab Scanned Report REFERENCE LAB White Blood Count 10.7 Red Blood Count 2.81 L Hemoglobin 9.1 L Hematocrit 29.7 L Mean Corpuscular Volume 105.7 H Mean Corpuscular Hemoglobin 32.4 Mean Corpuscular Hemoglobin Concent 30.6 L Red Cell Distribution Width 21.4 H Platelet Count 266 Mean Platelet Volume 10.9 H Immature Granulocytes % 0.300 Neutrophils % 80.5 H Lymphocytes % 10.2 L Monocytes % 6.5 Eosinophils % 1.9 Basophils % 0.6 Nucleated Red Blood Cells % 0.0 Immature Granulocytes # 0.030 Neutrophils # 8.7 H Lymphocytes # 1.1 Monocytes # 0.7 Eosinophils # 0.2 Basophils # 0.1 Nucleated Red Blood Cells # 0.0 Sodium Level 140 Potassium Level 3.5 Chloride Level 102 Carbon Dioxide Level 25 Anion Gap 13 Blood Urea Nitrogen 100 H Creatinine 2.39 H Est Glomerular Filtrat Rate mL/min Glucose Level 112 Calcium Level 9.5 Medications Medication Current Medications IV Flush (NS 10 ml) 10 ml PRN IV ; Start 05/06/18 at 20:30 Zinc Sulfate (Zinc Sulfate) 220 mg DAILY GTB Last administered on 07/28/18at 08:59; Admin Dose 220 MG; Start 05/07/18 at 09:00 Ondansetron HCl (Zofran Tab) 4 mg Q6H PRN GTB NAUSEA AND/OR VOMITING Last administered on 05/31/18at 16:47; Admin Dose 4 MG; Start 05/07/18 at 00:15 Multivitamins (Multivitamin) 30 ml DAILY GTB Last administered on 07/28/18at 08:59; Admin Dose 30 ML; Start 05/07/18 at 09:00 Miscellaneous Information (Pending Santyl Order For Wound Care) This patient goldman... PRN PRN XX WOUND CARE; Start 05/09/18 at 17:00 Acetaminophen (Tylenol Tab) 650 mg Q4H PRN PO MILD PAIN(1-3)OR ELEVATED TEMP Last administered on 07/16/18 00:42; Admin Dose 650 MG; Start 05/31/18 at 13:00 Collagenase (Santyl) 1 applic DAILY TOP Last administered on 07/28/18at 08:59; Admin Dose 1 APPLIC; Start 06/01/18 at 09:00 Clonidine (Catapres) 0.1 mg Q6H PRN PO ELEVATED BLOOD PRESSURE Last administered on 07/28/18 09:04; Admin Dose 0.1 MG; Start 06/03/18 at 03:30 Bumetanide (Bumex) 1 mg BID DIURETICS GTB Last administered on 07/26/18 06:06; Admin Dose 1 MG; Start 06/11/18 at 18:00; Status Hold Dicyclomine HCl (Bentyl) 20 mg Q8 PO Last administered on 07/28/18 06:20; Admin Dose 20 MG; Start 06/27/18 at 22:00 Cholestyramine Resin (Questran Light) 4 gm 0600,1200,1800,2300 GTB Last administered on 07/28/18at 05:00; Admin Dose 4 GM; Start 06/27/18 at 18:00 Lorazepam (Ativan) 0.5 mg Q4 PRN IV ANXIETY Last administered on 07/27/18at 00:30; Admin Dose 0.5 MG; Start 07/01/18 at 14:00 Metoprolol Tartrate (Lopressor) 50 mg Q8 GTB Last administered on 07/28/18 06:20; Admin Dose 50 MG; Start 07/05/18 at 22:00 Amikacin Sulfate (Amikacin Iv Per Pharmacy) 1 ea NOTE XX ; Start 07/09/18 at 17:30 Vancomycin HCl (Vancomycin Oral Syringe) 125 mg Q6 GTB Last administered on 07/28/18 06:20; Admin Dose 125 MG; Start 07/09/18 at 18:00 Epoetin Zen-epbx (Retacrit (Non-Esrd)) 10,000 unit MoWeFr@1700 SC Last administered on 07/27/18at 17:50; Admin Dose 10,000 UNIT; Start 07/13/18 at 17:00 Cefepime HCl 50 ml @ 100 mls/hr Q24H IVPB Last administered on 07/27/18at 17:48; Admin Dose 100 MLS/HR; Start 07/14/18 at 18:30 Albuterol/ Ipratropium (Duoneb) 3 ml Q2H RESP THERAPY PRN HHN WHEEZING Last administered on 07/21/18at 23:06; Admin Dose 3 ML; Start 07/21/18 at 22:00 Amiodarone HCl (Cordarone) 200 mg BID GTB Last administered on 07/28/18at 09:38; Admin Dose 200 MG; Start 07/22/18 at 21:00 Citric Acid/ Sodium Citrate (Bicitra) 60 ml DAILY PO Last administered on 07/28/18at 08:59; Admin Dose 60 ML; Start 07/23/18 at 09:00 Amikacin Sulfate 400 mg/Dextrose 101.6 ml @ 101.6 mls/ hr Q5D IVPB ; Start 07/30/18 at 23:00 Levothyroxine Sodium (Synthroid) 75 mcg DAILY@06 GTB Last administered on 07/28/18at 06:19; Admin Dose 75 MCG; Start 07/28/18 at 06:00 Miscellaneous Information (*Order Clarification Bulletin) MEDICATION REQUIRES CLARIFICATI... Q8H XX ; Start 07/27/18 at 18:30; Stop 07/29/18 at 18:29 Miscellaneous Information (*Order Clarification Bulletin) MEDICATION REQUIRES CLARIFICATI... Q8H XX ; Start 07/27/18 at 22:30 KENA MÉNDEZ NP Jul 28, 2018 10:46
--- NOTE | 2018-07-28 12:33 | CONS ---
Assessment/Plan Assessment/Plan Assessment/Plan (Recall) 73 F c/ multiple medial comorbidities, who presents for evaluation of lethargy in the context of acute on chronic renal failure and severe hyponatremia. Her mental status reportedly improved w/ symptomatic management of the above, but has since declined anew..for which neurology is consulted.. Of note, she has a Hx of afib...and a report of a possible mitral vegetation on echocardiogram from 04/2018.. Seizure is considered; EEG is notable for electrographic seizure activity.... Superimposed ecurrent toxic-metabolic encephalopathy is possible.. MRI brain is reassuringly negative for obvious acute intracranial pathology. Ammonia wnl P: Dilantin for seizure ppx; to be titrated prn to goal 10-20 Ativan iv prn prolonged seizure (> 5 min) Limit sedating medications where possible Other medical management and supportive care per primary Will follow clinically Consultation Date/Type/Reason Admit Date/Time May 06, 2018 at 17:38 Type of Consult Neurology Reason for Consultation ams Requesting Provider: ROLAND GIRON MD Date/Time of Note DATE: 07/28/18 TIME: 12:15 24 HR Interval Summary Free Text/Dictation s/p EEG Exam/Review of Systems Exam Vitals Vital Signs Date Temp Pulse Resp B/P (MAP) Pulse Ox O2 O2 Flow FiO2 Time Delivery Rate 07/28/18 98.3 74 20 166/90 97 Trach 11:24 (115) Collar 07/28/18 30 11:01 Intake and Output 07/27/18 07/27/18 07/28/18 1515:00 23:00 07:00 IntakeIntake Total 740 ml OutputOutput Total 600 ml BalanceBalance 140 ml Results Result Diagram: 07/28/18 0611 07/28/18 0611 Results 24hrs Laboratory Tests Test 07/28/18 06:11 White Blood Count 10.7 Red Blood Count 2.81 L Hemoglobin 9.1 L Hematocrit 29.7 L Mean Corpuscular Volume 105.7 H Mean Corpuscular Hemoglobin 32.4 Mean Corpuscular Hemoglobin Concent 30.6 L Red Cell Distribution Width 21.4 H Platelet Count 266 Mean Platelet Volume 10.9 H Immature Granulocytes % 0.300 Neutrophils % 80.5 H Lymphocytes % 10.2 L Monocytes % 6.5 Eosinophils % 1.9 Basophils % 0.6 Nucleated Red Blood Cells % 0.0 Immature Granulocytes # 0.030 Neutrophils # 8.7 H Lymphocytes # 1.1 Monocytes # 0.7 Eosinophils # 0.2 Basophils # 0.1 Nucleated Red Blood Cells # 0.0 Sodium Level 140 Potassium Level 3.5 Chloride Level 102 Carbon Dioxide Level 25 Anion Gap 13 Blood Urea Nitrogen 100 H Creatinine 2.39 H Est Glomerular Filtrat Rate mL/min Glucose Level 112 Calcium Level 9.5 Medications Medication Current Medications IV Flush (NS 10 ml) 10 ml PRN IV ; Start 05/06/18 at 20:30 Zinc Sulfate (Zinc Sulfate) 220 mg DAILY GTB Last administered on 07/28/18 08:59; Admin Dose 220 MG; Start 05/07/18 at 09:00 Ondansetron HCl (Zofran Tab) 4 mg Q6H PRN GTB NAUSEA AND/OR VOMITING Last administered on 05/31/18 16:47; Admin Dose 4 MG; Start 05/07/18 at 00:15 Multivitamins (Multivitamin) 30 ml DAILY GTB Last administered on 07/28/18 08:59; Admin Dose 30 ML; Start 05/07/18 at 09:00 Miscellaneous Information (Pending Santyl Order For Wound Care) This patient goldman... PRN PRN XX WOUND CARE; Start 05/09/18 at 17:00 Acetaminophen (Tylenol Tab) 650 mg Q4H PRN PO MILD PAIN(1-3)OR ELEVATED TEMP Last administered on 07/16/18 00:42; Admin Dose 650 MG; Start 05/31/18 at 13:00 Collagenase (Santyl) 1 applic DAILY TOP Last administered on 07/28/18 08:59; Admin Dose 1 APPLIC; Start 06/01/18 at 09:00 Clonidine (Catapres) 0.1 mg Q6H PRN PO ELEVATED BLOOD PRESSURE Last administered on 07/28/18 09:04; Admin Dose 0.1 MG; Start 06/03/18 at 03:30 Bumetanide (Bumex) 1 mg BID DIURETICS GTB Last administered on 07/26/18 06:06; Admin Dose 1 MG; Start 06/11/18 at 18:00; Status Hold Dicyclomine HCl (Bentyl) 20 mg Q8 PO Last administered on 07/28/18 06:20; Admin Dose 20 MG; Start 06/27/18 at 22:00 Cholestyramine Resin (Questran Light) 4 gm 0600,1200,1800,2300 GTB Last administered on 07/28/18 05:00; Admin Dose 4 GM; Start 06/27/18 at 18:00 Lorazepam (Ativan) 0.5 mg Q4 PRN IV ANXIETY Last administered on 07/27/18 00:30; Admin Dose 0.5 MG; Start 07/01/18 at 14:00 Metoprolol Tartrate (Lopressor) 50 mg Q8 GTB Last administered on 07/28/18 06:20; Admin Dose 50 MG; Start 07/05/18 at 22:00 Amikacin Sulfate (Amikacin Iv Per Pharmacy) 1 ea NOTE XX ; Start 07/09/18 at 17:30 Vancomycin HCl (Vancomycin Oral Syringe) 125 mg Q6 GTB Last administered on 07/28/18 06:20; Admin Dose 125 MG; Start 07/09/18 at 18:00 Epoetin Zen-epbx (Retacrit (Non-Esrd)) 10,000 unit MoWeFr@1700 SC Last administered on 07/27/18 17:50; Admin Dose 10,000 UNIT; Start 07/13/18 at 17:00 Cefepime HCl 50 ml @ 100 mls/hr Q24H IVPB Last administered on 07/27/18 17:48; Admin Dose 100 MLS/HR; Start 07/14/18 at 18:30 Albuterol/ Ipratropium (Duoneb) 3 ml Q2H RESP THERAPY PRN HHN WHEEZING Last administered on 07/21/18 23:06; Admin Dose 3 ML; Start 07/21/18 at 22:00 Amiodarone HCl (Cordarone) 200 mg BID GTB Last administered on 07/28/18 09:38; Admin Dose 200 MG; Start 07/22/18 at 21:00 Citric Acid/ Sodium Citrate (Bicitra) 60 ml DAILY PO Last administered on 07/28/18 08:59; Admin Dose 60 ML; Start 07/23/18 at 09:00 Amikacin Sulfate 400 mg/Dextrose 101.6 ml @ 101.6 mls/ hr Q5D IVPB ; Start 07/30/18 at 23:00 Levothyroxine Sodium (Synthroid) 75 mcg DAILY@06 GTB Last administered on 07/28/18at 06:19; Admin Dose 75 MCG; Start 07/28/18 at 06:00 Miscellaneous Information (*Order Clarification Bulletin) MEDICATION REQUIRES CLARIFICATI... Q8H XX ; Start 07/27/18 at 18:30; Stop 07/29/18 at 18:29 Miscellaneous Information (*Order Clarification Bulletin) MEDICATION REQUIRES CLARIFICATI... Q8H XX ; Start 07/27/18 at 22:30 PANCHO ORTIZ Jul 28, 2018 12:25
[2018-07-28] MEDS ORDERED: PHENYTOIN 1,250 MG in SOD CHLORIDE 0.9% 150 ML IV ONE (14:00)
--- NOTE | 2018-07-28 14:57 | PN ---
Date/Time of Note Date/Time of Note DATE: 07/28/18 TIME: 14:56 Assessment/Plan VTE Prophylaxis Risk score (from Ns)>0 risk: 7 SCD applied (from Ns): Yes Pharmacological prophylaxis: NA/contraindicated Pharm contraindication: anticoag not tolerated Lines/Catheters [facility] Saline Lock Urinary Cath still in place: Yes Reason Cath still needed: urinary retention Assessment/Plan Hospital Course No acute events overnight, pending PICC line placement for long-term antibiotics, DC planning to subacute when bed is available. Assessment/Plan -Persistent leukocytosis with Pseudomonas bacteremia 2 to PICC line infection, continue antibiotics per ID. Dr. Doyle is following in infection disease cons ultation. 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 TTE 07/16/18 with notion of echodense structure on the mitral valve, calcification vs vegetation. Dr. Scanlon is following in cardiology consultation. Patient needs IV cefepime and amikacin for treatment of bacteremia and presumed endocarditis for 5 weeks until 08/22/2018 per ID recommendations. -Hypothyroidism, continue levothyroxine. -MDR Klebsiella urinary tract infection, completed treatment with amikacin. -Atrial fibrillation was rapid ventricular response, patient remains in sinus rhythm continue metoprolol and amiodarone. -S/p septic shock secondary to urinary tract infection, anterior neck soft tissue infection, and C. difficile colitis. -C-diff colitis,resolved. -Acute respiratory failure requiring intubation and ventilatory support. Dr. Lambert is following in pulmonology consultation. -S/p tracheostomy on 05/29/18. -Acute kidney injury on chronic kidney disease. Started on HD this admission with recovery of renal function. Dr. Mckeon is following in nephrology consultation. -Anemia of chronic inflammation, stool for OB is negative, status post blood transfusion. Continue Epogen. -Metabolic acidosis, resolved. -Acute diastolic congestive heart failure. -Paroxysmal atrial fibrillation -COPD -Dysphagia with PEG. -G-tube mild malfunction, changed by GI Dr. Carolina is following in gastroenterology consultation. -Obesity -Critical care myopathy Further recommendations based on clinical course. Plan of care discussed with Dr. Eisenberg. Result Diagram: 07/28/18 0611 07/28/18 0611 Results 24hrs Laboratory Tests Test 07/28/18 06:11 White Blood Count 10.7 Red Blood Count 2.81 L Hemoglobin 9.1 L Hematocrit 29.7 L Mean Corpuscular Volume 105.7 H Mean Corpuscular Hemoglobin 32.4 Mean Corpuscular Hemoglobin Concent 30.6 L Red Cell Distribution Width 21.4 H Platelet Count 266 Mean Platelet Volume 10.9 H Immature Granulocytes % 0.300 Neutrophils % 80.5 H Lymphocytes % 10.2 L Monocytes % 6.5 Eosinophils % 1.9 Basophils % 0.6 Nucleated Red Blood Cells % 0.0 Immature Granulocytes # 0.030 Neutrophils # 8.7 H Lymphocytes # 1.1 Monocytes # 0.7 Eosinophils # 0.2 Basophils # 0.1 Nucleated Red Blood Cells # 0.0 Sodium Level 140 Potassium Level 3.5 Chloride Level 102 Carbon Dioxide Level 25 Anion Gap 13 Blood Urea Nitrogen 100 H Creatinine 2.39 H Est Glomerular Filtrat Rate mL/min Glucose Level 112 Calcium Level 9.5 Exam/Review of Systems Exam Vitals Vital Signs Date Temp Pulse Resp B/P (MAP) Pulse Ox O2 O2 Flow FiO2 Time Delivery Rate 07/28/18 66 137/73 14:38 (94) 07/28/18 98.3 20 97 Trach 11:24 Collar 07/28/18 30 11:01 Intake and Output 07/27/18 07/27/18 07/28/18 1515:00 23:00 07:00 IntakeIntake Total 740 ml OutputOutput Total 600 ml BalanceBalance 140 ml Exam Constitutional: alert, oriented Neck: other (Tracheostomy) Respiratory: diminished breath sounds Cardiovascular: regular rate and rhythm Gastrointestinal: soft, non-tender, other (G-tube) Extremities: normal pulses Neurological: nl mental status Results Results 24hrs Laboratory Tests Test 07/28/18 06:11 White Blood Count 10.7 Red Blood Count 2.81 L Hemoglobin 9.1 L Hematocrit 29.7 L Mean Corpuscular Volume 105.7 H Mean Corpuscular Hemoglobin 32.4 Mean Corpuscular Hemoglobin Concent 30.6 L Red Cell Distribution Width 21.4 H Platelet Count 266 Mean Platelet Volume 10.9 H Immature Granulocytes % 0.300 Neutrophils % 80.5 H Lymphocytes % 10.2 L Monocytes % 6.5 Eosinophils % 1.9 Basophils % 0.6 Nucleated Red Blood Cells % 0.0 Immature Granulocytes # 0.030 Neutrophils # 8.7 H Lymphocytes # 1.1 Monocytes # 0.7 Eosinophils # 0.2 Basophils # 0.1 Nucleated Red Blood Cells # 0.0 Sodium Level 140 Potassium Level 3.5 Chloride Level 102 Carbon Dioxide Level 25 Anion Gap 13 Blood Urea Nitrogen 100 H Creatinine 2.39 H Est Glomerular Filtrat Rate mL/min Glucose Level 112 Calcium Level 9.5 Medications Medication Current Medications IV Flush (NS 10 ml) 10 ml PRN IV ; Start 05/06/18 at 20:30 Zinc Sulfate (Zinc Sulfate) 220 mg DAILY GTB Last administered on 07/28/18 08:59; Admin Dose 220 MG; Start 05/07/18 at 09:00 Ondansetron HCl (Zofran Tab) 4 mg Q6H PRN GTB NAUSEA AND/OR VOMITING Last administered on 05/31/18 16:47; Admin Dose 4 MG; Start 05/07/18 at 00:15 Multivitamins (Multivitamin) 30 ml DAILY GTB Last administered on 07/28/18 08:59; Admin Dose 30 ML; Start 05/07/18 at 09:00 Miscellaneous Information (Pending Santyl Order For Wound Care) This patient goldman... PRN PRN XX WOUND CARE; Start 05/09/18 at 17:00 Acetaminophen (Tylenol Tab) 650 mg Q4H PRN PO MILD PAIN(1-3)OR ELEVATED TEMP Last administered on 07/16/18 00:42; Admin Dose 650 MG; Start 05/31/18 at 13:00 Collagenase (Santyl) 1 applic DAILY TOP Last administered on 07/28/18 08:59; Admin Dose 1 APPLIC; Start 06/01/18 at 09:00 Clonidine (Catapres) 0.1 mg Q6H PRN PO ELEVATED BLOOD PRESSURE Last administered on 07/28/18 09:04; Admin Dose 0.1 MG; Start 06/03/18 at 03:30 Bumetanide (Bumex) 1 mg BID DIURETICS GTB Last administered on 07/26/18 06:06; Admin Dose 1 MG; Start 06/11/18 at 18:00; Status Hold Dicyclomine HCl (Bentyl) 20 mg Q8 PO Last administered on 07/28/18 14:37; Admin Dose 20 MG; Start 06/27/18 at 22:00 Cholestyramine Resin (Questran Light) 4 gm 0600,1200,1800,2300 GTB Last administered on 07/28/18 13:04; Admin Dose 4 GM; Start 06/27/18 at 18:00 Lorazepam (Ativan) 0.5 mg Q4 PRN IV ANXIETY Last administered on 07/27/18 00:30; Admin Dose 0.5 MG; Start 07/01/18 at 14:00 Metoprolol Tartrate (Lopressor) 50 mg Q8 GTB Last administered on 07/28/18 14:37; Admin Dose 50 MG; Start 07/05/18 at 22:00 Amikacin Sulfate (Amikacin Iv Per Pharmacy) 1 ea NOTE XX ; Start 07/09/18 at 17:30 Vancomycin HCl (Vancomycin Oral Syringe) 125 mg Q6 GTB Last administered on 07/28/18 12:17; Admin Dose 125 MG; Start 07/09/18 at 18:00 Epoetin Zen-epbx (Retacrit (Non-Esrd)) 10,000 unit MoWeFr@1700 SC Last administered on 07/27/18 17:50; Admin Dose 10,000 UNIT; Start 07/13/18 at 17:00 Cefepime HCl 50 ml @ 100 mls/hr Q24H IVPB Last administered on 07/27/18 17:48; Admin Dose 100 MLS/HR; Start 07/14/18 at 18:30 Albuterol/ Ipratropium (Duoneb) 3 ml Q2H RESP THERAPY PRN HHN WHEEZING Last administered on 07/21/18 23:06; Admin Dose 3 ML; Start 07/21/18 at 22:00 Amiodarone HCl (Cordarone) 200 mg BID GTB Last administered on 07/28/18 09:38; Admin Dose 200 MG; Start 07/22/18 at 21:00 Citric Acid/ Sodium Citrate (Bicitra) 60 ml DAILY PO Last administered on 07/28/18 08:59; Admin Dose 60 ML; Start 07/23/18 at 09:00 Amikacin Sulfate 400 mg/Dextrose 101.6 ml @ 101.6 mls/ hr Q5D IVPB ; Start 07/30/18 at 23:00 Levothyroxine Sodium (Synthroid) 75 mcg DAILY@06 GTB Last administered on 6/11/19at 06:19; Admin Dose 75 MCG; Start 07/28/18 at 06:00 Miscellaneous Information (*Order Clarification Bulletin) MEDICATION REQUIRES CLARIFICATI... Q8H XX ; Start 07/27/18 at 18:30; Stop 07/29/18 at 18:29 Miscellaneous Information (*Order Clarification Bulletin) MEDICATION REQUIRES CLARIFICATI... Q8H XX ; Start 07/27/18 at 22:30 Phenytoin 1250 mg/ Sodium Chloride 175 ml @ 175 mls/hr ONCE ONCE IV Last administered on 07/28/18at 14:37; Admin Dose 175 MLS/HR; Start 07/28/18 at 14:00; Stop 07/28/18 at 14:59 Phenytoin (Dilantin) 100 mg Q8 IV ; Start 07/28/18 at 20:00 GRISELDA DENNIS Jul 28, 2018 14:57
--- NOTE | 2018-07-28 16:31 | CONS ---
Assessment/Plan Assessment/Plan Hospital Course (Demo Recall) Septic as well as hemorrhagic shock, improving Acute respiratory failure status post intubation and repeat tracheostomy Acute blood loss anemia History of respiratory failure status post decannulation Preserved ejection fraction echocardiogram 05/10/2018 Paroxysmal atrial fibrillation Acute kidney injury Presumed mitral valve endocarditis -Antibiotics as per infectious disease -Blood pressure trend labile. Continue beta-tin as tolerated -Patient with paroxysmal atrial fibrillation, currently in sinus rhythm -Continue amiodarone as tolerated -Vent management as per pulmonary -Fluid management and electrolytes as per renal -No anticoagulation given recurrent anemia requiring blood transfusions Consultation Date/Type/Reason Admit Date/Time May 06, 2018 at 17:38 Initial Consult Date 05/10/18 Type of Consult Cardiology Requesting Provider: ROLAND GIRON MD Date/Time of Note DATE: 07/28/18 TIME: 16:29 24 HR Interval Summary Free Text/Dictation Patient seen and examined Exam/Review of Systems Vital Signs Vitals Vital Signs Date Temp Pulse Resp B/P (MAP) Pulse Ox O2 O2 Flow FiO2 Time Delivery Rate 07/28/18 66 137/73 14:38 (94) 07/28/18 98.3 20 97 Trach 11:24 Collar 07/28/18 30 11:01 Intake and Output 07/27/18 07/27/18 07/28/18 1515:00 23:00 07:00 IntakeIntake Total 740 ml OutputOutput Total 600 ml BalanceBalance 140 ml Exam Constitutional: alert (No apparent distress, not following commands) Head: normocephalic Respiratory: other (Coarse breath sounds bilaterally, no wheezing) Cardiovascular: regular rate and rhythm (S1-S2 heard) Gastrointestinal: soft, non-tender, bowel sounds Extremities: edema Labs Result Diagram: 07/28/18 0611 07/28/18 0611 Results 24hrs Laboratory Tests Test 07/28/18 06:11 White Blood Count 10.7 Red Blood Count 2.81 L Hemoglobin 9.1 L Hematocrit 29.7 L Mean Corpuscular Volume 105.7 H Mean Corpuscular Hemoglobin 32.4 Mean Corpuscular Hemoglobin Concent 30.6 L Red Cell Distribution Width 21.4 H Platelet Count 266 Mean Platelet Volume 10.9 H Immature Granulocytes % 0.300 Neutrophils % 80.5 H Lymphocytes % 10.2 L Monocytes % 6.5 Eosinophils % 1.9 Basophils % 0.6 Nucleated Red Blood Cells % 0.0 Immature Granulocytes # 0.030 Neutrophils # 8.7 H Lymphocytes # 1.1 Monocytes # 0.7 Eosinophils # 0.2 Basophils # 0.1 Nucleated Red Blood Cells # 0.0 Sodium Level 140 Potassium Level 3.5 Chloride Level 102 Carbon Dioxide Level 25 Anion Gap 13 Blood Urea Nitrogen 100 H Creatinine 2.39 H Est Glomerular Filtrat Rate mL/min Glucose Level 112 Calcium Level 9.5 Medications Medications Current Medications IV Flush (NS 10 ml) 10 ml PRN IV ; Start 05/06/18 at 20:30 Zinc Sulfate (Zinc Sulfate) 220 mg DAILY GTB Last administered on 07/28/18 08:59; Admin Dose 220 MG; Start 05/07/18 at 09:00 Ondansetron HCl (Zofran Tab) 4 mg Q6H PRN GTB NAUSEA AND/OR VOMITING Last administered on 05/31/18 16:47; Admin Dose 4 MG; Start 05/07/18 at 00:15 Multivitamins (Multivitamin) 30 ml DAILY GTB Last administered on 07/28/18 08:59; Admin Dose 30 ML; Start 05/07/18 at 09:00 [facility]isc[facility] This patient goldman... PRN PRN XX WOUND CARE; Start 05/09/18 at 17:00 Acetaminophen (Tylenol Tab) 650 mg Q4H PRN PO MILD PAIN(1-3)OR ELEVATED TEMP Last administered on 07/16/18at 00:42; Admin Dose 650 MG; Start 05/31/18 at 13:00 Clonidine (Catapres) 0.1 mg Q6H PRN PO ELEVATED BLOOD PRESSURE Last administered on 07/28/18 09:04; Admin Dose 0.1 MG; Start 06/03/18 at 03:30 Bumetanide (Bumex) 1 mg BID DIURETICS GTB Last administered on 07/26/18 06:06; Admin Dose 1 MG; Start 06/11/18 at 18:00; Status Hold Dicyclomine HCl (Bentyl) 20 mg Q8 PO Last administered on 07/28/18 14:37; Admin Dose 20 MG; Start 06/27/18 at 22:00 Cholestyramine Resin (Questran Light) 4 gm 0600,1200,1800,2300 GTB Last administered on 07/28/18 13:04; Admin Dose 4 GM; Start 06/27/18 at 18:00 Lorazepam (Ativan) 0.5 mg Q4 PRN IV ANXIETY Last administered on 07/27/18 00:30; Admin Dose 0.5 MG; Start 07/01/18 at 14:00 Metoprolol Tartrate (Lopressor) 50 mg Q8 GTB Last administered on 07/28/18 14:37; Admin Dose 50 MG; Start 07/05/18 at 22:00 Amikacin Sulfate (Amikacin Iv Per Pharmacy) 1 ea NOTE XX ; Start 07/09/18 at 17:30 Vancomycin HCl (Vancomycin Oral Syringe) 125 mg Q6 GTB Last administered on 07/28/18 12:17; Admin Dose 125 MG; Start 07/09/18 at 18:00 Epoetin Zen-epbx (Retacrit (Non-Esrd)) 10,000 unit MoWeFr@1700 SC Last administered on 07/27/18 17:50; Admin Dose 10,000 UNIT; Start 07/13/18 at 17:00 Cefepime HCl 50 ml @ 100 mls/hr Q24H IVPB Last administered on 07/27/18 17:48; Admin Dose 100 MLS/HR; Start 07/14/18 at 18:30 Albuterol/ Ipratropium (Duoneb) 3 ml Q2H RESP THERAPY PRN HHN WHEEZING Last administered on 07/21/18 23:06; Admin Dose 3 ML; Start 07/21/18 at 22:00 Amiodarone HCl (Cordarone) 200 mg BID GTB Last administered on 07/28/18 09:38; Admin Dose 200 MG; Start 07/22/18 at 21:00 Citric Acid/ Sodium Citrate (Bicitra) 60 ml DAILY PO Last administered on 07/28/18 08:59; Admin Dose 60 ML; Start 07/23/18 at 09:00 Amikacin Sulfate 400 mg/Dextrose 101.6 ml @ 101.6 mls/ hr Q5D IVPB ; Start 07/30/18 at 23:00 Levothyroxine Sodium (Synthroid) 75 mcg DAILY@06 GTB Last administered on 07/28/18 06:19; Admin Dose 75 MCG; Start 07/28/18 at 06:00 Miscellaneous Information (*Order Clarification Bulletin) MEDICATION REQUIRES CLARIFICATI... Q8H XX ; Start 07/27/18 at 18:30; Stop 07/29/18 at 18:29 Miscellaneous Information (*Order Clarification Bulletin) MEDICATION REQUIRES CLARIFICATI... Q8H XX ; Start 07/27/18 at 22:30 Phenytoin (Dilantin) 100 mg Q8 IV ; Start 07/28/18 at 20:00 Nystatin (Nystatin Powder) 1 applic BID TOP ; Start 07/28/18 at 17:30 Evangelista Scanlon DO Jul 28, 2018 16:31
[2018-07-28] MEDS: NYSTATIN 30 GM POWDER BTL TOP SCH ×2 (16:46→23:38)
[2018-07-28] MEDS ORDERED: LIDOCAINE 1% (MPF) 5 ML VIAL SC ONE (18:30)
[2018-07-28] MEDS: CEFEPIME 2GM/50 ML (PMX) 50 ML IVPB SCH (18:38)
[2018-07-28] MEDS: PHENYTOIN 100 MG INJ IV SCH (23:37)
[2018-07-29] VITALS (22 sets, daily range): BP systolic 134–169; BP diastolic 70–107; PULSE 58–119; RESP 20–32
[2018-07-29] MEDS: DICYCLOMINE 10 MG CAP PO SCH ×3 (05:03→22:03)
[2018-07-29] MEDS: CHOLESTYRAMINE (LIGHT) 4 GM PACKET GTB SCH ×4 (05:03→22:04)
[2018-07-29] MEDS: LEVOTHYROXINE 75 MCG TAB GTB SCH (05:03)
[2018-07-29] MEDS: PHENYTOIN 100 MG INJ IV SCH ×2 (05:03→20:31)
[2018-07-29] MEDS: VANCOMYCIN HCL 250 MG/5ML POSYG GTB SCH ×4 (05:03→23:17)
[2018-07-29] MEDS: METOPROLOL 50 MG TAB GTB SCH ×3 (05:08→22:04)
--- NOTE | 2018-07-29 08:41 | PN ---
DATE: 07/29/2018 SUBJECTIVE: The patient is stable. No events overnight. OBJECTIVE: VITAL SIGNS: Blood pressure is 169/107, respirations 20, pulse 60, temperature 98.6. HEENT: Head is normocephalic. NECK: Supple. HEART: Regular rate. LUNGS: Show diminished breath sounds at the base. ABDOMEN: Soft, nontender to palpation without rebound or guarding. EXTREMITIES: Negative for clubbing, cyanosis. The patient is positive for edema upper and lower ext remities. DERMATOLOGIC: No rashes. MUSCULOSKELETAL: No joint effusion. NEUROLOGIC: No change in exam. MEDICATIONS: The patient's medications have been reviewed. LABORATORY DATA: The laboratory data has been reviewed. IMAGING STUDIES: Have been reviewed. ASSESSMENT AND PLAN: 1. Nonoliguric acute injury with previous baseline creatinine around 2 mg/dL. Etiology of NATHAN is se condary to ATN. The patient is status post hemodialysis. The patient's renal function appears to be stabilizing between a creatinine of 2 to 2.5 mg/dL. Will continue to monitor closely. Monitor volu me status closely. No immediate need for renal replacement therapy. 2. Volume overload. The patient will be resumed on diuretic therapy, Bumex 1 mg b.i.d. 3. Continue to monitor electrolytes and renal function closely. 4. Anemia. Monitor hemoglobin and hematocrit levels. 5. Mineral bone disorder, monitor calcium and phosphorus levels. 6. Ventilator-dependent respiratory failure. Vent settings have been reviewed. Continue to monitor . 7. Sepsis, endocarditis. The patient is completing antibiotic course. 8. Dysphagia. Continue to monitor. 9. Encephalopathy. Etiology may be toxic metabolic, questionable uremia. Continue to monitor . Follow up with neurology. 10. Lower extremity wounds. Continue wound care. Dictated By: JEANA BANSAL DO NR/NTS Conf#: [id number] DID#: [id number] CC: QUINTEN UMAÑA MD; ROLAND GIRON MD;*EndCC*
[2018-07-29] MEDS: CITRIC ACID/NA CITRATE 30 ML CUP PO SCH (08:57)
[2018-07-29] MEDS: ZINC SULFATE 220 MG CAP GTB SCH (08:57)
[2018-07-29] MEDS: MULTIVITAMINS 30 ML CUP GTB SCH (08:57)
[2018-07-29] MEDS: AMIODARONE 200 MG TAB GTB SCH ×2 (08:58→20:30)
[2018-07-29] MEDS: NYSTATIN 30 GM POWDER BTL TOP SCH ×2 (08:59→20:31)
[2018-07-29] MEDS: BALSAM PERU/CASTOR OIL 60 GM TUBE TOP SCH ×2 (08:59→20:31)
--- NOTE | 2018-07-29 11:05 | CONS ---
Assessment/Plan Assessment/Plan Assessment/Plan (Recall) 73 F c/ multiple medial comorbidities, who presents for evaluation of lethargy in the context of acute on chronic renal failure and severe hyponatremia. Her mental status reportedly improved w/ symptomatic management of the above, but has since declined anew..for which neurology is consulted.. Of note, she has a Hx of afib...and a report of a possible mitral vegetation on echocardiogram from 04/2018.. Seizure was an initial consideration; EEG was notable for electrographic seizure activity.... Superimposed recurrent toxic-metabolic encephalopathy is possible.. MRI brain is reassuringly negative for obvious acute intracranial pathology. Ammonia wnl P: Dilantin for seizure ppx; to be titrated prn to goal 10-20 Ativan iv prn prolonged seizure (> 5 min) Limit sedating medications where possible Other medical management and supportive care per primary Will follow clinically Consultation Date/Type/Reason Admit Date/Time May 06, 2018 at 17:38 Type of Consult Neurology Reason for Consultation ams Requesting Provider: ROLAND GIRON MD Date/Time of Note DATE: 07/29/18 TIME: 11:03 24 HR Interval Summary Free Text/Dictation s/p Dilantin load Exam/Review of Systems Exam Vitals Vital Signs Date Temp Pulse Resp B/P (MAP) Pulse Ox O2 O2 Flow FiO2 Time Delivery Rate 07/29/18 62 08:38 07/29/18 98.6 20 134/70 100 Mechanical 08:24 (91) Ventilator 07/29/18 30 05:42 Intake and Output 07/28/18 07/28/18 07/29/18 1515:00 23:00 07:00 IntakeIntake Total 840 ml 935 ml OutputOutput Total 400 ml 650 ml BalanceBalance 440 ml 285 ml Exam PE: Gen Appearance: No Apparent Distress HEENT: Trach Cardiovascular: Regular rate Abdomen: Soft Extremities: Dry NE: The patient was alert though nonverbal...able to fix but not follow... did not follow commands. Cranial nerve examination was limited by mental status. Pupils were equal and reactive to light. There was no afferent pupillary defect. Funduscopic examination was limited. Face was grossly symmetric, w/ present corneal and cough reflexes. Tone was increased. Muscle bulk was normal. I did not see fasciculations. The patient withdrew to noxious stimulation. Coordination and gait testing was limited by mental status. Gonzales's sign was absent. Plantar responses were flexor. Results Result Diagram: 07/28/18 0611 07/29/18 0552 Results 24hrs Laboratory Tests Test 07/28/18 18:21 07/29/18 05:52 Phenytoin (Dilantin) Level 12.6 10.0 Sodium Level 140 Potassium Level 3.6 Chloride Level 103 Carbon Dioxide Level 24 Anion Gap 13 Blood Urea Nitrogen 100 H Creatinine 2.37 H Est Glomerular Filtrat Rate mL/min Glucose Level 130 Calcium Level 9.6 Phosphorus Level 3.9 Magnesium Level 1.8 Medications Medication Current Medications IV Flush (NS 10 ml) 10 ml PRN IV ; Start 05/06/18 at 20:30 Zinc Sulfate (Zinc Sulfate) 220 mg DAILY GTB Last administered on 07/29/18 08 :57; Admin Dose 220 MG; Start 05/07/18 at 09:00 Ondansetron HCl (Zofran Tab) 4 mg Q6H PRN GTB NAUSEA AND/OR VOMITING Last administered on 05/31/18at 16:47; Admin Dose 4 MG; Start 05/07/18 at 00:15 Multivitamins (Multivitamin) 30 ml DAILY GTB Last administered on 07/29/18 08:57; Admin Dose 30 ML; Start 05/07/18 at 09:00 Miscellaneous Information (Pending Santyl Order For Wound Care) This patient goldman... PRN PRN XX WOUND CARE; Start 05/09/18 at 17:00 Acetaminophen (Tylenol Tab) 650 mg Q4H PRN PO MILD PAIN(1-3)OR ELEVATED TEMP Last administered on 07/16/18at 00:42; Admin Dose 650 MG; Start 05/31/18 at 13:00 Clonidine (Catapres) 0.1 mg Q6H PRN PO ELEVATED BLOOD PRESSURE Last administered on 07/28/18 21:08; Admin Dose 0.1 MG; Start 06/03/18 at 03:30 Bumetanide (Bumex) 1 mg BID DIURETICS GTB Last administered on 07/26/18 06:06; Admin Dose 1 MG; Start 06/11/18 at 18:00 Dicyclomine HCl (Bentyl) 20 mg Q8 PO Last administered on 07/29/18 05:03; Admin Dose 20 MG; Start 06/27/18 at 22:00 Cholestyramine Resin (Questran Light) 4 gm 0600,1200,1800,2300 GTB Last administered on 07/29/18 05:03; Admin Dose 4 GM; Start 06/27/18 at 18:00 Lorazepam (Ativan) 0.5 mg Q4 PRN IV ANXIETY Last administered on 07/27/18 00:30; Admin Dose 0.5 MG; Start 07/01/18 at 14:00 Metoprolol Tartrate (Lopressor) 50 mg Q8 GTB Last administered on 07/29/18 05:08; Admin Dose 50 MG; Start 07/05/18 at 22:00 Amikacin Sulfate (Amikacin Iv Per Pharmacy) 1 ea NOTE XX ; Start 07/09/18 at 17:30 Vancomycin HCl (Vancomycin Oral Syringe) 125 mg Q6 GTB Last administered on 07/29/18 05:03; Admin Dose 125 MG; Start 07/09/18 at 18:00 Epoetin Zen-epbx (Retacrit (Non-Esrd)) 10,000 unit MoWeFr@1700 SC Last administered on 07/27/18 17:50; Admin Dose 10,000 UNIT; Start 07/13/18 at 17:00 Cefepime HCl 50 ml @ 100 mls/hr Q24H IVPB Last administered on 07/28/18 18:38; Admin Dose 100 MLS/HR; Start 07/14/18 at 18:30 Albuterol/ Ipratropium (Duoneb) 3 ml Q2H RESP THERAPY PRN HHN WHEEZING Last administered on 07/21/18 23:06; Admin Dose 3 ML; Start 07/21/18 at 22:00 Amiodarone HCl (Cordarone) 200 mg BID GTB Last administered on 07/29/18 08:58; Admin Dose 200 MG; Start 07/22/18 at 21:00 Citric Acid/ Sodium Citrate (Bicitra) 60 ml DAILY PO Last administered on 07/29/18 08:57; Admin Dose 60 ML; Start 07/23/18 at 09:00 Amikacin Sulfate 400 mg/Dextrose 101.6 ml @ 101.6 mls/ hr Q5D IVPB ; Start 07/30/18 at 23:00 Levothyroxine Sodium (Synthroid) 75 mcg DAILY@06 GTB Last administered on 07/29/18at 05:03; Admin Dose 75 MCG; Start 07/28/18 at 06:00 Miscellaneous Information (*Order Clarification Bulletin) MEDICATION REQUIRES CLARIFICATI... Q8H XX ; Start 07/27/18 at 18:30; Stop 07/29/18 at 18:29 Miscellaneous Information (*Order Clarification Bulletin) MEDICATION REQUIRES CLARIFICATI... Q8H XX ; Start 07/27/18 at 22:30 Phenytoin (Dilantin) 100 mg Q8 IV Last administered on 07/29/18at 05:03; Admin Dose 100 MG; Start 07/28/18 at 20:00 Nystatin (Nystatin Powder) 1 applic BID TOP Last administered on 07/29/18at 08:59; Admin Dose 1 APPLIC; Start 07/28/18 at 17:30 IV Flush (NS 10 ml) 10 ml Q8 PRN IV IV PROTOCOL; Start 07/28/18 at 19:00 PANCHO ORTIZ 12, 2019 11:05
--- NOTE | 2018-07-29 12:14 | CONS ---
Assessment/Plan Assessment/Plan Hospital Course (Demo Recall) Septic as well as hemorrhagic shock, improving Acute respiratory failure status post intubation and repeat tracheostomy Acute blood loss anemia History of respiratory failure status post decannulation Preserved ejection fraction echocardiogram 05/10/2018 Paroxysmal atrial fibrillation Acute kidney injury Presumed mitral valve endocarditis -Antibiotics as per infectious disease -Blood pressure trend labile. Continue beta-tin as tolerated, if blood pressure remains elevated, would consider restarting amlodipine -Patient with paroxysmal atrial fibrillation, currently in sinus rhythm -Continue amiodarone as tolerated -Vent management as per pulmonary -Fluid management and electrolytes as per renal -No anticoagulation given recurrent anemia requiring blood transfusions Consultation Date/Type/Reason Admit Date/Time May 06, 2018 at 17:38 Initial Consult Date 05/10/18 Type of Consult Cardiology Requesting Provider: ROLAND GIRON MD Date/Time of Note DATE: 07/29/18 TIME: 12:12 24 HR Interval Summary Free Text/Dictation Patient seen and examined Exam/Review of Systems Vital Signs Vitals Vital Signs Date Temp Pulse Resp B/P (MAP) Pulse Ox O2 O2 Flow FiO2 Time Delivery Rate 07/29/18 62 20 100 30 11:31 07/29/18 98.6 134/70 Mechanical 08:24 (91) Ventilator Intake and Output 07/28/18 07/28/18 07/29/18 1515:00 23:00 07:00 IntakeIntake Total 840 ml 935 ml OutputOutput Total 400 ml 650 ml BalanceBalance 440 ml 285 ml Exam Exam Awake, not following commands, no apparent distress Head: normocephalic Respiratory: other (Coarse breath sounds bilaterally, no wheezing) Cardiovascular: regular rate and rhythm (S1-S2 heard) Gastrointestinal: soft, non-tender, bowel sounds Extremities: edema Labs Result Diagram: 07/28/18 0611 07/29/18 0552 Results 24hrs Laboratory Tests Test 07/28/18 18:21 07/29/18 05:52 Phenytoin (Dilantin) Level 12.6 10.0 Sodium Level 140 Potassium Level 3.6 Chloride Level 103 Carbon Dioxide Level 24 Anion Gap 13 Blood Urea Nitrogen 100 H Creatinine 2.37 H Est Glomerular Filtrat Rate mL/min Glucose Level 130 Calcium Level 9.6 Phosphorus Level 3.9 Magnesium Level 1.8 Medications Medications Current Medications IV Flush (NS 10 ml) 10 ml PRN IV ; Start 3/20/19 at 20:30 Zinc Sulfate (Zinc Sulfate) 220 mg DAILY GTB Last administered on 07/29/18 08:57; Admin Dose 220 MG; Start 05/07/18 at 09:00 Ondansetron HCl (Zofran Tab) 4 mg Q6H PRN GTB NAUSEA AND/OR VOMITING Last administered on 05/31/18 16:47; Admin Dose 4 MG; Start 05/07/18 at 00:15 Multivitamins (Multivitamin) 30 ml DAILY GTB Last administered on 07/29/18 08:57; Admin Dose 30 ML; Start 05/07/18 at 09:00 Miscellaneous [facility] This patient goldman... PRN PRN XX WOUND CARE; Start 05/09/18 at 17:00 Acetaminophen (Tylenol Tab) 650 mg Q4H PRN PO MILD PAIN(1-3)OR ELEVATED TEMP Last administered on 07/16/18 00:42; Admin Dose 650 MG; Start 05/31/18 at 13:00 Clonidine (Catapres) 0.1 mg Q6H PRN PO ELEVATED BLOOD PRESSURE Last administered on 07/28/18 21:08; Admin Dose 0.1 MG; Start 06/03/18 at 03:30 Bumetanide (Bumex) 1 mg BID DIURETICS GTB Last administered on 07/26/18 06:06; Admin Dose 1 MG; Start 06/11/18 at 18:00 Dicyclomine HCl (Bentyl) 20 mg Q8 PO Last administered on 07/29/18 05:03; Admin Dose 20 MG; Start 06/27/18 at 22:00 Cholestyramine Resin (Questran Light) 4 gm 0600,1200,1800,2300 GTB Last administered on 07/29/18 05:03; Admin Dose 4 GM; Start 06/27/18 at 18:00 Lorazepam (Ativan) 0.5 mg Q4 PRN IV ANXIETY Last administered on 07/27/18 00:30; Admin Dose 0.5 MG; Start 07/01/18 at 14:00 Metoprolol Tartrate (Lopressor) 50 mg Q8 GTB Last administered on 07/29/18 05:08; Admin Dose 50 MG; Start 07/05/18 at 22:00 Amikacin Sulfate (Amikacin Iv Per Pharmacy) 1 ea NOTE XX ; Start 07/09/18 at 17:30 Vancomycin HCl (Vancomycin Oral Syringe) 125 mg Q6 GTB Last administered on 07/29/18at 05:03; Admin Dose 125 MG; Start 07/09/18 at 18:00 Epoetin Zen-epbx (Retacrit (Non-Esrd)) 10,000 unit MoWeFr@1700 SC Last administered on 07/27/18at 17:50; Admin Dose 10,000 UNIT; Start 07/13/18 at 17:00 Cefepime HCl 50 ml @ 100 mls/hr Q24H IVPB Last administered on 07/28/18 18:38; Admin Dose 100 MLS/HR; Start 07/14/18 at 18:30 Albuterol/ Ipratropium (Duoneb) 3 ml Q2H RESP THERAPY PRN HHN WHEEZING Last administered on 07/21/18 23:06; Admin Dose 3 ML; Start 07/21/18 at 22:00 Amiodarone HCl (Cordarone) 200 mg BID GTB Last administered on 07/29/18 08:58; Admin Dose 200 MG; Start 07/22/18 at 21:00 Citric Acid/ Sodium Citrate (Bicitra) 60 ml DAILY PO Last administered on 07/29/18 08:57; Admin Dose 60 ML; Start 07/23/18 at 09:00 Amikacin Sulfate 400 mg/Dextrose 101.6 ml @ 101.6 mls/ hr Q5D IVPB ; Start 07/30/18 at 23:00 Levothyroxine Sodium (Synthroid) 75 mcg DAILY@06 GTB Last administered on 07/29/18 05:03; Admin Dose 75 MCG; Start 07/28/18 at 06:00 Miscellaneous Information (*Order Clarification Bulletin) MEDICATION REQUIRES CLARIFICATI... Q8H XX ; Start 07/27/18 at 18:30; Stop 07/29/18 at 18:29 Miscellaneous Information (*Order Clarification Bulletin) MEDICATION REQUIRES CLARIFICATI... Q8H XX ; Start 07/27/18 at 22:30 Nystatin (Nystatin Powder) 1 applic BID TOP Last administered on 6/12/19at 08:59; Admin Dose 1 APPLIC; Start 07/28/18 at 17:30 IV Flush (NS 10 ml) 10 ml Q8 PRN IV IV PROTOCOL; Start 07/28/18 at 19:00 Phenytoin (Dilantin) 200 mg Q12H IV ; Start 07/29/18 at 20:00 Evangelista Scanlon DO Jul 29, 2018 12:14
--- NOTE | 2018-07-29 13:34 | CONS ---
Assessment/Plan Assessment/Plan Hospital Course (Demo Recall) # sepsis, leukocytosis, SIRS, pulmonary, cardiac - recurrent leukocytosis due to bacteremia (below), improved - s/p septic shock due to pneumonia and C diff colitis - acute on chronic hypoxic respiratory failure, persistent - s/p reintubation 05/12/2018 - s/p re-do trach on 05/29/2018 - recurrent colonization of the anterior neck wound with ESBL+kleb, MRSA, GBS, corynebacteria on 05/06/2018 - h/o pneumonia vs. colonization of the airway by pseudomonas and ESBL+klebsiella - h/o possible, recurrent HCAP due to pseudomonas and ESBL+klebsiella - h/o recurrent HCAP due to MRSA and Enterobacter (culture of tracheal aspirate on 07/16/2017 that was collected at [facility]) . Pt took vancomycin and ceftazidime - h/o decannulation prior to admission - h/o tracheostomy on 06/11/2017 - h/o SIRS from UGIB in 2018 - h/o thoracentesis on 07/18/2017, transudative (protein <2, LDH 279) - h/o bleeding from the trach site in 2018 - h/o septic shock due to pneumonia, ARDS, bacteremia, fungemia in 2018 - h/o ARDS in 2018 - h/o smoking - COPD - h/o ILD per medical record - h/o PAF, improved - echodense structure in posterior leafleat region, differential includes calcification vs vegetation per 2D echo 07/15/2018 # GI - s/p possible ileus or enterocolitis on CT abd/pel 06/15/2018-->follow up CT on 07/15/2018 showed no evidence of urolithiasis, obstructive uropathy or diverticulitis; it showed small to moderate ascites - C diff colitis, diagnosed on 05/11/2018. Pt is on pGT vancomycin (05/11/2018-); Pt previously took IV metronidazole (05/11/2018-05/29/2018; restart 05/30/2018- 06/05/18) too - Pt had multiple negative C. diff tests at [facility] and at OSH in the past; none was positive until 05/11/2018 - dysphagia - h/o PEG placement 06/13/2018 - protein calorie malnutrition - h/o coffee ground emesis/UGIB on 12/23/2017 due to deep ulceration of distal esophagus and gastritis on EGD 12/26/2017. No e/o H. pylori - h/o possible appendicitis on CT on 11/22/2017, Pt took ertapenem (11/24/2017- 12/01/2017) - h/o extensive adhesions lower abdominal and pelvis between small bowel to each other and to colon and to abdominal wall, anterior pelvic wall chronic abscess secondary to probably an old perforated diverticulitis, torsion of small bowel around these dense adhesion causing multiple obstructive points - h/o laparoscopic exploration and extensive lysis of adhesions and drainage of anterior pelvic wall abscess 09/16/2017. Cultures were negative, no e/o malignancy. Pt took pip/tazo (09/16/2017-09/26/2017) - h/o EGD and exchange of PEG on 09/01/2017 - h/o partial obstruction mid jejunum in L anterior central pelvis with suggestion of a 3 cm soft tissue mass on CT 08/28/2017 - h/o internal stomal deep ulcer behind the internal bumper, gastritis and esophagitis, Rodriguez's cannot be ruled out, per EGD with biopsy 07/23/2017 - h/o GIB s/p flex sig showed polyp; stool OB negative on 06/29/17 - h/o stool OB positive status - h/o SBO and ileus due to pain meds - h/o mildly elevated CEA # renal/ - s/p recurrent UTI due to pseudomonas (culture on 07/09/2018)-->Garza catheter was replaced on 07/14/2018 - s/p UTI due to MDR, CRE-klebsiella on 06/15/2018. S/p renally dosed amikacin for klebsiella in her urine culture (06/17-06/22/2018) - s/p UTI due to pseudomonas and ESBL+klebsiella on 06/09/2018, Pt took one dose of fosfomycin on 06/10/2018 and cipro 06/12-06/15/2018 - anasarca - started on HD on 05/15/2018, via Juan in R groin - recurrent NATHAN on CKD - 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 Her strain of CRE was sensitive to colistin, Avycaz, and Vabomere but resistant to Zerbaxa (reported on 05/19/2018) - metabolic acidosis - adrenal insufficiency - h/o vaginal bleed in 2018 - h/o colonization of urinary tract by ESBL+klebsiella, VRE - h/o recurrent, symptomatic UTI due to carbapenem-resistant kleb (MDR strain) per urine culture 10/04/17, 10/09/17, 10/21/2017, P took colistin (10/09/2017- 10/15/2017), fosfomycin for carbapenemase-producing klebsiella and VRE on 10/25/2017 and 10/28/2017 - h/o funguria - h/o urinary retention # bloodstream infections - Bacteremia d/t pseudomonas aeruginosa 07/09/18, 07/10/18, 07/11/18, 07/12/18, 07/13/18, 07/15/18, 07/17/18. This is associated with PICC because the blood culture from PICC and phlebotomy on 07/13/2018 both grew the same bacteria. 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 improved. Probable manifestation of endocarditis. Pt declined MRI on 08/06/2017 - h/o infection of R toes due to pseudomonas. coagulase negative Staph likely a colonizer - h/o intertrigo of the groin, resolved with nystatin powder - h/o scabies, locally crusted lesion over L scapula, s/p permethrin cream and pGT ivermectin on 08/11/2017, 08/12/2017, 08/19/2017. Repeat skin scraping on 08/21/2017 was negative for scabies # psych, neuro - chronic toxic metabolic encephalopathy, progressing - MRI brain shows no acute intracranial pathology - EEG 07/27/18 showed abnormal electroencephalogram due to: diffuse slowing, and brief poorly localized seizures without annotated clinical correlate. - decreased hearing b/l - h/o critical illness polyneuropathy - anxiety/depression, bipolar d/o, seen by Psychiatry in the past - chronic pain syndrome - h/o medical non-compliance: she would refuse her medications, treatment and straight catheterization in 2018 - complete opacification of the bilateral mastoid air cells per MRI Brain 07/27/2018 # hematological, vascular - chronic anemia requiring blood transfusion intermittently - macrocytic anemia - aneurysmal dilatation of the distal aorta visualized on CT 06/15/2018 - PVD Recommendations: - Continue amikacin IV (07/09/2018-). Pt had a strain of pseudomonas that was resistant to all except for aminoglycoside - Continue renally dosed cefepime (07/14/2018-); Pt needs double coverage because amikacin alone has not cleared her bacteremia. Some strains of pseudomonas she had were pansensitive while other strains of pseudomonas were resistant to many antibiotics (MDR) - Pt will require a prolonged course of abx given likely vegetation on 2D echo; plan for 6 weeks - JADE Villareal requested for Micro on 07/26/18 to check susceptibility of pseudomonas from blood cx on 07/17/2018 to avycaz, zerbaxa, doripenem and colistin - We called and spoke with micro 07/27/18 to please run these and release sensitivities - Awaiting sensitivities release. - Okay to place PICC line from ID standpoint for prolonged IV abx - Continue vancomycin pGT (07/09/18/ - ) while on IV abx d/t pt's h/o C. diff. Pt completed IV metronidazole (07/09/18-07/15/18) - We recommend bi monthly Audiology testing for this pt who will likely require penitentiary aminoglycoside - Consider MARCIAL to r/o endocarditis so as to possibly limit pt's course of antibiotics/exposure to nephrotoxic agents. Although it may be difficult to distinguish between an old lesion vs a new lesion. - Appreciate Nuero eval - Monitor CrCl (trending down today) - Consider goals of continued aggressive care; overall prognosis appears poor especially in light of recent echo findings I directed care to ADMINISTRATIVE OFFICE SPECIALIST yesterday via telemediq messaging. Consultation Date/Type/Reason Admit Date/Time May 06, 2018 at 17:38 Initial Consult Date 05/10/18 Type of Consult ID Requesting Provider: ROLAND GIRON MD Date/Time of Note DATE: 07/29/18 TIME: 13:31 Exam/Review of Systems Exam Vitals Vital Signs Date Temp Pulse Resp B/P (MAP) Pulse Ox O2 O2 Flow FiO2 Time Delivery Rate 07/29/18 98.6 112 22 161/93 99 Mechanical 12:13 (115) Ventilator 07/29/18 30 11:31 Intake and Output 07/28/18 07/28/18 07/29/18 1515:00 23:00 07:00 IntakeIntake Total 840 ml 935 ml OutputOutput Total 400 ml 650 ml BalanceBalance 440 ml 285 ml Results Result Diagram: 07/28/18 0611 07/29/18 0552 Results 24hrs Laboratory Tests Test 07/28/18 18:21 07/29/18 05:52 Phenytoin (Dilantin) Level 12.6 10.0 Sodium Level 140 Potassium Level 3.6 Chloride Level 103 Carbon Dioxide Level 24 Anion Gap 13 Blood Urea Nitrogen 100 H Creatinine 2.37 H Est Glomerular Filtrat Rate mL/min Glucose Level 130 Calcium Level 9.6 Phosphorus Level 3.9 Magnesium Level 1.8 Medications Medication Current Medications IV Flush (NS 10 ml) 10 ml PRN IV ; Start 05/06/18 at 20:30 Zinc Sulfate (Zinc Sulfate) 220 mg DAILY GTB Last administered on 07/29/18at 08:57; Admin Dose 220 MG; Start 05/07/18 at 09:00 Ondansetron HCl (Zofran Tab) 4 mg Q6H PRN GTB NAUSEA AND/OR VOMITING Last administered on 05/31/18at 16:47; Admin Dose 4 MG; Start 05/07/18 at 00:15 Multivitamins (Multivitamin) 30 ml DAILY GTB Last administered on 07/29/18 08:57; Admin Dose 30 ML; Start 05/07/18 at 09:00 [facility] This patient goldman... PRN PRN XX WOUND CARE; Start 05/09/18 at 17:00 Acetaminophen (Tylenol Tab) 650 mg Q4H PRN PO MILD PAIN(1-3)OR ELEVATED TEMP Last administered on 07/16/18 00:42; Admin Dose 650 MG; Start 05/31/18 at 13:00 Clonidine (Catapres) 0.1 mg Q6H PRN PO ELEVATED BLOOD PRESSURE Last administered on 07/28/18 21:08; Admin Dose 0.1 MG; Start 06/03/18 at 03:30 Bumetanide (Bumex) 1 mg BID DIURETICS GTB Last administered on 07/26/18 06:06; Admin Dose 1 MG; Start 06/11/18 at 18:00 Dicyclomine HCl (Bentyl) 20 mg Q8 PO Last administered on 07/29/18 05:03; Admin Dose 20 MG; Start 06/27/18 at 22:00 Cholestyramine Resin (Questran Light) 4 gm 0600,1200,1800,2300 GTB Last administered on 07/29/18 12:19; Admin Dose 4 GM; Start 06/27/18 at 18:00 Lorazepam (Ativan) 0.5 mg Q4 PRN IV ANXIETY Last administered on 07/27/18 00:30; Admin Dose 0.5 MG; Start 07/01/18 at 14:00 Metoprolol Tartrate (Lopressor) 50 mg Q8 GTB Last administered on 07/29/18 05:08; Admin Dose 50 MG; Start 07/05/18 at 22:00 Amikacin Sulfate (Amikacin Iv Per Pharmacy) 1 ea NOTE XX ; Start 07/09/18 at 17:30 Vancomycin HCl (Vancomycin Oral Syringe) 125 mg Q6 GTB Last administered on 07/29/18 12:19; Admin Dose 125 MG; Start 07/09/18 at 18:00 Epoetin Zen-epbx (Retacrit (Non-Esrd)) 10,000 unit MoWeFr@1700 SC Last administered on 6/10/19at 17:50; Admin Dose 10,000 UNIT; Start 07/13/18 at 17:00 Cefepime HCl 50 ml @ 100 mls/hr Q24H IVPB Last administered on 07/28/18at 1 8:38; Admin Dose 100 MLS/HR; Start 07/14/18 at 18:30 Albuterol/ Ipratropium (Duoneb) 3 ml Q2H RESP THERAPY PRN HHN WHEEZING Last administered on 07/21/18at 23:06; Admin Dose 3 ML; Start 07/21/18 at 22:00 Amiodarone HCl (Cordarone) 200 mg BID GTB Last administered on 07/29/18 08:58; Admin Dose 200 MG; Start 07/22/18 at 21:00 Citric Acid/ Sodium Citrate (Bicitra) 60 ml DAILY PO Last administered on 07/29/18 08:57; Admin Dose 60 ML; Start 07/23/18 at 09:00 Amikacin Sulfate 400 mg/Dextrose 101.6 ml @ 101.6 mls/ hr Q5D IVPB ; Start 07/30/18 at 23:00 Levothyroxine Sodium (Synthroid) 75 mcg DAILY@06 GTB Last administered on 07/29/18at 05:03; Admin Dose 75 MCG; Start 07/28/18 at 06:00 Miscellaneous Information (*Order Clarification Bulletin) MEDICATION REQUIRES CLARIFICATI... Q8H XX ; Start 07/27/18 at 18:30; Stop 07/29/18 at 18:29 Miscellaneous Information (*Order Clarification Bulletin) MEDICATION REQUIRES CLARIFICATI... Q8H XX ; Start 07/27/18 at 22:30 Nystatin (Nystatin Powder) 1 applic BID TOP Last administered on 07/29/18at 08:59; Admin Dose 1 APPLIC; Start 07/28/18 at 17:30 IV Flush (NS 10 ml) 10 ml Q8 PRN IV IV PROTOCOL; Start 07/28/18 at 19:00 Phenytoin (Dilantin) 200 mg Q12H IV ; Start 07/29/18 at 20:00 MANN VALDEZ MD Jul 29, 2018 13:34
--- NOTE | 2018-07-29 16:22 | PN ---
Date/Time of Note Date/Time of Note DATE: 07/29/18 TIME: 16:19 Assessment/Plan VTE Prophylaxis Risk score (from [facility])>0 risk: 9 SCD applied (from [facility]): Yes Pharmacological prophylaxis: NA/contraindicated Pharm contraindication: anticoag not tolerated Lines/Catheters IV C[facility] Type (from [facility] PICC Line Central line still needed: Yes Urinary Cath still in place: Yes Reason Cath still needed: urinary retention Assessment/Plan Hospital Course Patient is lethargic but easily arousable, status post PICC line placement yesterday. DC planning to subacute when bed is available. Assessment/Plan -Possible acute metabolic encephalopathy. Dr. Mathew is following in neurology consultation. -Seizures, continue Dilantin -Persistent leukocytosis with Pseudomonas bacteremia 2 to PICC line infection, continue antibiotics per ID. Dr. Doyle is following in infection disease consultation. 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 TTE 07/16/18 with notion of echodense structure on the mitral valve, calcification vs vegetation. Dr. Scanlon is following in cardiology consultation. Patient needs IV cefepime and amikacin for treatment of bacteremia and presumed endocarditis for 5 weeks until 08/22/2018 per ID recommendations. -Hypothyroidism, continue levothyroxine. -MDR Klebsiella urinary tract infection, completed treatment with amikacin. -Atrial fibrillation was rapid ventricular response, patient remains in sinus rhythm continue metoprolol and amiodarone. -S/p septic shock secondary to urinary tract infection, anterior neck soft tissue infection, and C. difficile colitis. -C-diff colitis,resolved. -Acute respiratory failure requiring intubation and ventilatory support. Dr. Lambert is following in pulmonology consultation. -S/p tracheostomy on 05/29/18. -Acute kidney injury on chronic kidney disease. Started on HD this admission with recovery of renal function. Dr. Mckeon is following in nephrology consultation. -Anemia of chronic inflammation, stool for OB is negative, status post blood transfusion. Continue Epogen. -Metabolic acidosis, resolved. -Acute diastolic congestive heart failure. -Paroxysmal atrial fibrillation -COPD -Dysphagia with PEG. -G-tube mild malfunction, changed by GI Dr. Carolina is following in gastroenterology consultation. -Obesity -Critical care myopathy Further recommendations based on clinical course. Plan of care discussed with Dr. Eisenberg. Result Diagram: 07/28/18 0611 07/29/18 0552 Results 24hrs Laboratory Tests Test 07/28/18 18:21 07/29/18 05:52 Phenytoin (Dilantin) Level 12.6 10.0 Sodium Level 140 Potassium Level 3.6 Chloride Level 103 Carbon Dioxide Level 24 Anion Gap 13 Blood Urea Nitrogen 100 H Creatinine 2.37 H Est Glomerular Filtrat Rate mL/min Glucose Level 130 Calcium Level 9.6 Phosphorus Level 3.9 Magnesium Level 1.8 Exam/Review of Systems Exam Vitals Vital Signs Date Temp Pulse Resp B/P (MAP) Pulse Ox O2 O2 Flow FiO2 Time Delivery Rate 07/29/18 71 14:06 07/29/18 98.6 22 161/93 99 Mechanical 12:13 (115) Ventilator 07/29/18 30 11:31 Intake and Output 07/28/18 07/28/18 07/29/18 1515:00 23:00 07:00 IntakeIntake Total 840 ml 935 ml OutputOutput Total 400 ml 650 ml BalanceBalance 440 ml 285 ml Exam Constitutional: alert, oriented Neck: other (Tracheostomy) Respiratory: diminished breath sounds Cardiovascular: regular rate and rhythm Gastrointestinal: soft, non-tender, other (G-tube) Extremities: normal pulses Neurological: nl mental status Results Results 24hrs Laboratory Tests Test 07/28/18 18:21 07/29/18 05:52 Phenytoin (Dilantin) Level 12.6 10.0 Sodium Level 140 Potassium Level 3.6 Chloride Level 103 Carbon Dioxide Level 24 Anion Gap 13 Blood Urea Nitrogen 100 H Creatinine 2.37 H Est Glomerular Filtrat Rate mL/min Glucose Level 130 Calcium Level 9.6 Phosphorus Level 3.9 Magnesium Level 1.8 Medications Medication Current Medications IV Flush (NS 10 ml) 10 ml PRN IV ; Start 05/06/18 at 20:30 Zinc Sulfate (Zinc Sulfate) 220 mg DAILY GTB Last administered on 07/29/18at 08:57; Admin Dose 220 MG; Start 05/07/18 at 09:00 Ondansetron HCl (Zofran Tab) 4 mg Q6H PRN GTB NAUSEA AND/OR VOMITING Last a dministered on 05/31/18at 16:47; Admin Dose 4 MG; Start 05/07/18 at 00:15 Multivitamins (Multivitamin) 30 ml DAILY GTB Last administered on 07/29/18 08:57; Admin Dose 30 ML; Start 05/07/18 at 09:00 [facility]isc[facility] This patient goldman... PRN PRN XX WOUND CARE; Start 05/09/18 at 17:00 Acetaminophen (Tylenol Tab) 650 mg Q4H PRN PO MILD PAIN(1-3)OR ELEVATED TEMP Last administered on 07/16/18 00:42; Admin Dose 650 MG; Start 05/31/18 at 13:00 Clonidine (Catapres) 0.1 mg Q6H PRN PO ELEVATED BLOOD PRESSURE Last administered on 07/28/18 21:08; Admin Dose 0.1 MG; Start 06/03/18 at 03:30 Bumetanide (Bumex) 1 mg BID DIURETICS GTB Last administered on 07/26/18 06:06; Admin Dose 1 MG; Start 06/11/18 at 18:00 Dicyclomine HCl (Bentyl) 20 mg Q8 PO Last administered on 07/29/18 13:49; Admin Dose 20 MG; Start 06/27/18 at 22:00 Cholestyramine Resin (Questran Light) 4 gm 0600,1200,1800,2300 GTB Last administered on 07/29/18 12:19; Admin Dose 4 GM; Start 06/27/18 at 18:00 Lorazepam (Ativan) 0.5 mg Q4 PRN IV ANXIETY Last administered on 07/27/18 00: 30; Admin Dose 0.5 MG; Start 07/01/18 at 14:00 Metoprolol Tartrate (Lopressor) 50 mg Q8 GTB Last administered on 07/29/18 13:48; Admin Dose 50 MG; Start 07/05/18 at 22:00 Amikacin Sulfate (Amikacin Iv Per Pharmacy) 1 ea NOTE XX ; Start 07/09/18 at 17:30 Vancomycin HCl (Vancomycin Oral Syringe) 125 mg Q6 GTB Last administered on 07/29/18 12:19; Admin Dose 125 MG; Start 07/09/18 at 18:00 Epoetin Zen-epbx (Retacrit (Non-Esrd)) 10,000 unit MoWeFr@1700 SC Last administered on 07/27/18 17:50; Admin Dose 10,000 UNIT; Start 07/13/18 at 17:00 Cefepime HCl 50 ml @ 100 mls/hr Q24H IVPB Last administered on 07/28/18at 18:38; Admin Dose 100 MLS/HR; Start 07/14/18 at 18:30 Albuterol/ Ipratropium (Duoneb) 3 ml Q2H RESP THERAPY PRN HHN WHEEZING Last administered on 07/21/18at 23:06; Admin Dose 3 ML; Start 07/21/18 at 22:00 Amiodarone HCl (Cordarone) 200 mg BID GTB Last administered on 07/29/18at 08:58; Admin Dose 200 MG; Start 07/22/18 at 21:00 Citric Acid/ Sodium Citrate (Bicitra) 60 ml DAILY PO Last administered on 07/29/18at 08:57; Admin Dose 60 ML; Start 07/23/18 at 09:00 Amikacin Sulfate 400 mg/Dextrose 101.6 ml @ 101.6 mls/ hr Q5D IVPB ; Start 07/30/18 at 23:00 Levothyroxine Sodium (Synthroid) 75 mcg DAILY@06 GTB Last administered on 07/29/18at 05:03; Admin Dose 75 MCG; Start 07/28/18 at 06:00 Miscellaneous Information (*Order Clarification Bulletin) MEDICATION REQUIRES CLARIFICATI... Q8H XX ; Start 07/27/18 at 18:30; Stop 07/29/18 at 18:29 Miscellaneous Information (*Order Clarification Bulletin) MEDICATION REQUIRES CLARIFICATI... Q8H XX ; Start 07/27/18 at 22:30 Nystatin (Nystatin Powder) 1 applic BID TOP Last administered on 07/29/18at 08:59; Admin Dose 1 APPLIC; Start 07/28/18 at 17:30 IV Flush (NS 10 ml) 10 ml Q8 PRN IV IV PROTOCOL; Start 07/28/18 at 19:00 Phenytoin (Dilantin) 200 mg Q12H IV ; Start 07/29/18 at 20:00 GRISELDA DENNIS Jul 29, 2018 16:22
[2018-07-29] MEDS: BUMETANIDE 1 MG TAB GTB SCH (17:40)
[2018-07-29] MEDS: EPOETIN ALFA-EPBX (NON-ESRD 10,000 UNIT/ML VIAL SC SCH (17:40)
[2018-07-29] MEDS: CEFEPIME 2GM/50 ML (PMX) 50 ML IVPB SCH (17:44)
[2018-07-29] MEDS: LORAZEPAM 2 MG INJ IV PRN (20:47)
[2018-07-30] VITALS (21 sets, daily range): BP systolic 121–166; BP diastolic 65–94; PULSE 61–109; RESP 18–33
[2018-07-30] MEDS: ACETAMINOPHEN 325 MG TAB PO PRN ×2 (00:53→21:11)
[2018-07-30] MEDS: LEVOTHYROXINE 75 MCG TAB GTB SCH (05:22)
[2018-07-30] MEDS: BUMETANIDE 1 MG TAB GTB SCH ×2 (05:22→17:35)
[2018-07-30] MEDS: VANCOMYCIN HCL 250 MG/5ML POSYG GTB SCH ×4 (05:22→23:40)
[2018-07-30] MEDS: CHOLESTYRAMINE (LIGHT) 4 GM PACKET GTB SCH ×4 (05:22→21:54)
[2018-07-30] MEDS: DICYCLOMINE 10 MG CAP PO SCH ×3 (05:22→21:53)
[2018-07-30] MEDS: METOPROLOL 50 MG TAB GTB SCH ×3 (05:23→21:53)
[2018-07-30] MEDS: PHENYTOIN 100 MG INJ IV SCH ×2 (08:23→20:54)
[2018-07-30] MEDS: CITRIC ACID/NA CITRATE 30 ML CUP PO SCH (08:24)
[2018-07-30] MEDS: MULTIVITAMINS 30 ML CUP GTB SCH (08:24)
[2018-07-30] MEDS: AMIODARONE 200 MG TAB GTB SCH ×2 (08:24→20:59)
[2018-07-30] MEDS: ZINC SULFATE 220 MG CAP GTB SCH (08:24)
[2018-07-30] MEDS: BALSAM PERU/CASTOR OIL 60 GM TUBE TOP SCH ×2 (08:25→21:00)
[2018-07-30] MEDS: NYSTATIN 30 GM POWDER BTL TOP SCH ×2 (08:25→21:00)
--- NOTE | 2018-07-30 09:35 | PN ---
DATE: 07/30/2018 SUBJECTIVE: The patient remains stable, confused, no other acute events noted. OBJECTIVE: VITAL SIGNS: Blood pressure is 155/90, temperature 98.3, pulse 69, respiration 19. HEENT: Head is normocephalic. NECK: Supple. HEART: Regular rate. LUNGS: Show diminished breath sounds at the base. ABDOMEN: Soft, nontender to palpation without rebound or guarding. EXTREMITIES: Negative for clubbing, cyanosis. Positive edema. DERMATOLOGIC: No rashes. MUSCULOSKELETAL: No joint effusion. NEUROLOGIC: No change in exam. MEDICATIONS: Reviewed. LABORATORY DATA: Has been reviewed. ASSESSMENT AND PLAN: 1. Nonoliguric acute kidney injury with previous baseline creatinine 2.0 mg/dL. Etiology is acute k idney injury is secondary to acute tubular necrosis. The patient is status post hemodialysis. The p atient's renal function appears to have stabilized around a creatinine of 2.0 to 2.5 q. Will continu e to monitor closely. No immediate need for renal replacement therapy. 2. Volume overload, diastolic heart failure, chronic kidney disease. Continue Bumex. Monitor elect rolytes and renal function closely. 3. Anemia. Monitor hemoglobin and hematocrit levels. 4. Mineral bone disorder. Monitor calcium and phosphorus levels. 5. Ventilatory-dependent respiratory failure. Vent settings have been reviewed. Continue to monito r. 6. Sepsis, endocarditis. Patient is completing antibiotic course. 7. Status post C. diff. 8. Dysphagia. Continue tube feeding. 9. Encephalopathy. Etiology is toxic metabolic, possibly uremic. Continue to monitor. Follow up w [facility] neurology. 10. Lower extremity wounds. Continue wound care. Dictated By: JEANA BANSAL DO NR/NTS Conf#: [id number] DID#: [id number] CC: ROLAND GIRON MD;*EndCC*
[2018-07-30] MEDS ORDERED: PHENYTOIN 500 MG in SOD CHLORIDE 0.9% 100 ML IV STA (11:01)
[2018-07-30] MEDS ORDERED: POTASSIUM CHLORIDE 20 MEQ POWDER FOR ORAL SOLN GTB ONE (11:30)
--- NOTE | 2018-07-30 13:47 | CONS ---
Assessment/Plan Assessment/Plan Hospital Course (Demo Recall) Septic as well as hemorrhagic shock, improving Acute respiratory failure status post intubation and repeat tracheostomy Acute blood loss anemia History of respiratory failure status post decannulation Preserved ejection fraction echocardiogram 05/10/2018 Paroxysmal atrial fibrillation Acute kidney injury Presumed mitral valve endocarditis -Antibiotics as per infectious disease -Blood pressure remains in the higher side, would restart amlodipine with holding parameters -Patient with paroxysmal atrial fibrillation, currently in sinus rhythm -Continue amiodarone as tolerated -Vent management as per pulmonary -Fluid management and electrolytes as per renal -No anticoagulation given recurrent anemia requiring blood transfusions Consultation Date/Type/Reason Admit Date/Time May 06, 2018 at 17:38 Initial Consult Date 05/10/18 Type of Consult Cardiology Requesting Provider: ROLAND GIRON MD Date/Time of Note DATE: 07/30/18 TIME: 13:45 24 HR Interval Summary Free Text/Dictation Patient seen and examined Exam/Review of Systems Vital Signs Vitals Vital Signs Date Temp Pulse Resp B/P (MAP) Pulse Ox O2 O2 Flow FiO2 Time Delivery Rate 07/30/18 64 23 100 30 11:36 07/30/18 98.7 121/65 11:30 (83) 07/30/18 Mechanical 04:00 Ventilator Trach Collar Intake and Output 07/29/18 07/29/18 07/30/18 1515:00 23:00 07:00 IntakeIntake Total 860 ml 600 ml 600 ml OutputOutput Total 500 ml 700 ml 550 ml BalanceBalance 360 ml -100 ml 50 ml Exam Constitutional: alert (No apparent distress, not following commands) Head: normocephalic Respiratory: other (Coarse breath sounds bilaterally, no wheezing) Cardiovascular: regular rate and rhythm (S1-S2 heard) Gastrointestinal: soft, non-tender, bowel sounds Extremities: edema Labs Result Diagram: 07/28/18 0611 07/30/18 0654 Results 24hrs Laboratory Tests Test 07/30/18 06:54 Sodium Level 140 Potassium Level 3.1 L Chloride Level 104 Carbon Dioxide Level 23 Anion Gap 13 Blood Urea Nitrogen 103 H Creatinine 2.43 H Est Glomerular Filtrat Rate mL/min Glucose Level 121 Calcium Level 9.5 Phosphorus Level 3.5 Magnesium Level 1.7 Phenytoin (Dilantin) Level 5.7 L Medications Medications Current Medications IV Flush (NS 10 ml) 10 ml PRN IV ; Start 05/06/18 at 20:30 Zinc Sulfate (Zinc Sulfate) 220 mg DAILY GTB Last administered on 07/30/18 08:24; Admin Dose 220 MG; Start 05/07/18 at 09:00 Ondansetron HCl (Zofran Tab) 4 mg Q6H PRN GTB NAUSEA AND/OR VOMITING Last administered on 05/31/18 16:47; Admin Dose 4 MG; Start 05/07/18 at 00:15 Multivitamins (Multivitamin) 30 ml DAILY GTB Last administered on 07/30/18 08:24; Admin Dose 30 ML; Start 05/07/18 at 09:00 Miscellaneous [facility] This patient goldman... PRN PRN XX WOUND CARE; Start 05/09/18 at 17:00 Acetaminophen (Tylenol Tab) 650 mg Q4H PRN PO MILD PAIN(1-3)OR ELEVATED TEMP Last administered on 07/30/18 00:53; Admin Dose 650 MG; Start 05/31/18 at 13:00 Clonidine (Catapres) 0.1 mg Q6H PRN PO ELEVATED BLOOD PRESSURE Last administered on 07/30/18 01:47; Admin Dose 0.1 MG; Start 06/03/18 at 03:30 Bumetanide (Bumex) 1 mg BID DIURETICS GTB Last administered on 07/30/18 05:22; Admin Dose 1 MG; Start 06/11/18 at 18:00 Dicyclomine HCl (Bentyl) 20 mg Q8 PO Last administered on 07/30/18 13:29; Admin Dose 20 MG; Start 06/27/18 at 22:00 Cholestyramine Resin (Questran Light) 4 gm 0600,1200,1800,2300 GTB Last administered on 07/30/18 11:54; Admin Dose 4 GM; Start 06/27/18 at 18:00 Lorazepam (Ativan) 0.5 mg Q4 PRN IV ANXIETY Last administered on 07/29/18 20:47; Admin Dose 0.5 MG; Start 07/01/18 at 14:00 Metoprolol Tartrate (Lopressor) 50 mg Q8 GTB Last administered on 07/30/18 13:29; Admin Dose 50 MG; Start 07/05/18 at 22:00 Amikacin Sulfate (Amikacin Iv Per Pharmacy) 1 ea NOTE XX ; Start 07/09/18 at 17:30 Vancomycin HCl (Vancomycin Oral Syringe) 125 mg Q6 GTB Last administered on 07/30/18at 11:53; Admin Dose 125 MG; Start 07/09/18 at 18:00 Epoetin Zen-epbx (Retacrit (Non-Esrd)) 10,000 unit MoWeFr@1700 SC Last administered on 07/29/18 17:40; Admin Dose 10,000 UNIT; Start 07/13/18 at 17:00 Cefepime HCl 50 ml @ 100 mls/hr Q24H IVPB Last administered on 07/29/18 17:44; Admin Dose 100 MLS/HR; Start 07/14/18 at 18:30 Albuterol/ Ipratropium (Duoneb) 3 ml Q2H RESP THERAPY PRN HHN WHEEZING Last administered on 07/21/18 23:06; Admin Dose 3 ML; Start 07/21/18 at 22:00 Amiodarone HCl (Cordarone) 200 mg BID GTB Last administered on 07/30/18 08:24; Admin Dose 200 MG; Start 07/22/18 at 21:00 Citric Acid/ Sodium Citrate (Bicitra) 60 ml DAILY PO Last administered on 07/30/18 08:24; Admin Dose 60 ML; Start 07/23/18 at 09:00 Amikacin Sulfate 400 mg/Dextrose 101.6 ml @ 101.6 mls/ hr Q5D IVPB ; Start 07/30/18 at 23:00 Levothyroxine Sodium (Synthroid) 75 mcg DAILY@06 GTB Last administered on 07/30/18 05:22; Admin Dose 75 MCG; Start 07/28/18 at 06:00 Miscellaneous Information (*Order Clarification Bulletin) MEDICATION REQUIRES CLARIFICATI... Q8H XX ; Start 07/27/18 at 22:30 Nystatin (Nystatin Powder) 1 applic BID TOP Last administered on 07/30/18 08:25; Admin Dose 1 APPLIC; Start 07/28/18 at 17:30 IV Flush (NS 10 ml) 10 ml Q8 PRN IV IV PROTOCOL; Start 07/28/18 at 19:00 Phenytoin (Dilantin) 200 mg Q12H IV Last administered on 07/30/18at 08:23; Admin Dose 200 MG; Start 07/29/18 at 20:00 Evangelista Scanlon DO Jul 30, 2018 13:46
--- NOTE | 2018-07-30 15:07 | PN ---
Date/Time of Note Date/Time of Note DATE: 07/30/18 TIME: 15:04 Assessment/Plan VTE Prophylaxis Risk score (from [facility])>0 risk: 9 SCD applied (from [facility] [place]): Yes Pharmacological prophylaxis: NA/contraindicated Pharm contraindication: anticoag not tolerated Lines/Catheters IV Catheter Type (from [facility]): PICC Line Central line still needed: Yes Urinary Cath still in place: Yes Reason Cath still needed: urinary retention Assessment/Plan Hospital Course Potassium replaced for K of 3.1, check BMP tomorrow, patient continues on ventilatory support, arousable. DC planning to subacute when bed is available. Per case management meeting in morning no placement is set up yet. Assessment/Plan -Possible acute metabolic encephalopathy. Dr. Mathew is following in neurology consultation. -Seizures, continue Dilantin -Persistent leukocytosis with Pseudomonas bacteremia 2 to PICC line infection, continue antibiotics per ID. Dr. Doyle is following in infection disease consultation. 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 TTE 07/16/18 with notion of echodense structure on the mitral valve, calcification vs vegetation. Dr. Scanlon is following in cardiology consultation. Patient needs IV cefepime and amikacin for treatment of bacteremia and presumed endocarditis for 5 weeks until 08/22/2018 per ID recommendations. -Hypothyroidism, continue levothyroxine. -MDR Klebsiella urinary tract infection, completed treatment with amikacin. -Atrial fibrillation was rapid ventricular response, patient remains in sinus rhythm continue metoprolol and amiodarone. -S/p septic shock secondary to urinary tract infection, anterior neck soft tissue infection, and C. difficile colitis. -C-diff colitis,resolved. -Acute respiratory failure requiring intubation and ventilatory support. Dr. Lambert is following in pulmonology consultation. -S/p tracheostomy on 05/29/18. -Acute kidney injury on chronic kidney disease. Started on HD this admission with recovery of renal function. Dr. Mckeon is following in nephrology consultation. -Anemia of chronic inflammation, stool for OB is negative, status post blood transfusion. Continue Epogen. -Metabolic acidosis, resolved. -Acute diastolic congestive heart failure. -Paroxysmal atrial fibrillation -COPD -Dysphagia with PEG. -G-tube mild malfunction, changed by GI Dr. Carolina is following in gastroenterology consultation. -Obesity -Critical care myopathy Further recommendations based on clinical course. Plan of care discussed with Dr. Eisenberg. Result Diagram: 07/28/18 0611 07/30/18 0654 Results 24hrs Laboratory Tests Test 07/30/18 06:54 Sodium Level 140 Potassium Level 3.1 L Chloride Level 104 Carbon Dioxide Level 23 Anion Gap 13 Blood Urea Nitrogen 103 H Creatinine 2.43 H Est Glomerular Filtrat Rate mL/min Glucose Level 121 Calcium Level 9.5 Phosphorus Level 3.5 Magnesium Level 1.7 Phenytoin (Dilantin) Level 5.7 L Exam/Review of Systems Exam Vitals Vital Signs Date Temp Pulse Resp B/P (MAP) Pulse Ox O2 O2 Flow FiO2 Time Delivery Rate 07/30/18 70 12:01 07/30/18 23 100 30 11:36 07/30/18 98.7 121/65 11:30 (83) 07/30/18 Mechanical 04:00 Ventilator Trach Collar Intake and Output 07/29/18 07/29/18 07/30/18 1515:00 23:00 07:00 IntakeIntake Total 860 ml 600 ml 600 ml OutputOutput Total 500 ml 700 ml 550 ml BalanceBalance 360 ml -100 ml 50 ml Exam Constitutional: alert, oriented Neck: other (Tracheostomy) Respiratory: diminished breath sounds Cardiovascular: regular rate and rhythm Gastrointestinal: soft, non-tender, other (G-tube) Extremities: normal pulses Neurological: nl mental status Results Results 24hrs Laboratory Tests Test 07/30/18 06:54 Sodium Level 140 Potassium Level 3.1 L Chloride Level 104 Carbon Dioxide Level 23 Anion Gap 13 Blood Urea Nitrogen 103 H Creatinine 2.43 H Est Glomerular Filtrat Rate mL/min Glucose Level 121 Calcium Level 9.5 Phosphorus Level 3.5 Magnesium Level 1.7 Phenytoin (Dilantin) Level 5.7 L Medications Medication Current Medications IV Flush (NS 10 ml) 10 ml PRN IV ; Start 05/06/18 at 20:30 Zinc Sulfate (Zinc Sulfate) 220 mg DAILY GTB Last administered on 07/30/18at 08:24; Admin Dose 220 MG; Start 05/07/18 at 09:00 Ondansetron HCl (Zofran Tab) 4 mg Q6H PRN GTB NAUSEA AND/OR VOMITING Last administered on 05/31/18at 16:47; Admin Dose 4 MG; Start 05/07/18 at 00:15 Multivitamins (Multivitamin) 30 ml DAILY GTB Last administered on 07/30/18 08:24; Admin Dose 30 ML; Start 05/07/18 at 09:00 [facility]isc[facility] This patient goldman... PRN PRN XX WOUND CARE; Start 05/09/18 at 17:00 Acetaminophen (Tylenol Tab) 650 mg Q4H PRN PO MILD PAIN(1-3)OR ELEVATED TEMP Last administered on 07/30/18 00:53; Admin Dose 650 MG; Start 05/31/18 at 13:00 Clonidine (Catapres) 0.1 mg Q6H PRN PO ELEVATED BLOOD PRESSURE Last administered on 07/30/18 01:47; Admin Dose 0.1 MG; Start 06/03/18 at 03:30 Bumetanide (Bumex) 1 mg BID DIURETICS GTB Last administered on 07/30/18 05:22; Admin Dose 1 MG; Start 06/11/18 at 18:00 Dicyclomine HCl (Bentyl) 20 mg Q8 PO Last administered on 07/30/18 13:29; Admin Dose 20 MG; Start 06/27/18 at 22:00 Cholestyramine Resin (Questran Light) 4 gm 0600,1200,1800,2300 GTB Last administered on 07/30/18 11:54; Admin Dose 4 GM; Start 06/27/18 at 18:00 Lorazepam (Ativan) 0.5 mg Q4 PRN IV ANXIETY Last administered on 07/29/18 20:47; Admin Dose 0.5 MG; Start 07/01/18 at 14:00 Metoprolol Tartrate (Lopressor) 50 mg Q8 GTB Last administered on 07/30/18 13:29; Admin Dose 50 MG; Start 07/05/18 at 22:00 Amikacin Sulfate (Amikacin Iv Per Pharmacy) 1 ea NOTE XX ; Start 07/09/18 at 17:30 Vancomycin HCl (Vancomycin Oral Syringe) 125 mg Q6 GTB Last administered on 07/30/18 11:53; Admin Dose 125 MG; Start 07/09/18 at 18:00 Epoetin Zen-epbx (Retacrit (Non-Esrd)) 10,000 unit MoWeFr@1700 SC Last administered on 07/29/18 17:40; Admin Dose 10,000 UNIT; Start 07/13/18 at 17:00 Cefepime HCl 50 ml @ 100 mls/hr Q24H IVPB Last administered on 07/29/18 17:44; Admin Dose 100 MLS/HR; Start 07/14/18 at 18:30 Albuterol/ Ipratropium (Duoneb) 3 ml Q2H RESP THERAPY PRN HHN WHEEZING Last administered on 07/21/18 23:06; Admin Dose 3 ML; Start 07/21/18 at 22:00 Amiodarone HCl (Cordarone) 200 mg BID GTB Last administered on 07/30/18 08:24; Admin Dose 200 MG; Start 07/22/18 at 21:00 Citric Acid/ Sodium Citrate (Bicitra) 60 ml DAILY PO Last administered on 07/30/18 08:24; Admin Dose 60 ML; Start 07/23/18 at 09:00 Amikacin Sulfate 400 mg/Dextrose 101.6 ml @ 101.6 mls/ hr Q5D IVPB ; Start 07/30/18 at 23:00 Levothyroxine Sodium (Synthroid) 75 mcg DAILY@06 GTB Last administered on 07/30/18 05:22; Admin Dose 75 MCG; Start 07/28/18 at 06:00 Miscellaneous Information (*Order Clarification Bulletin) MEDICATION REQUIRES CLARIFICATI... Q8H XX ; Start 07/27/18 at 22:30 Nystatin (Nystatin Powder) 1 applic BID TOP Last administered on 07/30/18at 0 8:25; Admin Dose 1 APPLIC; Start 07/28/18 at 17:30 IV Flush (NS 10 ml) 10 ml Q8 PRN IV IV PROTOCOL; Start 07/28/18 at 19:00 Phenytoin (Dilantin) 200 mg Q12H IV Last administered on 07/30/18 08:23; Admin Dose 200 MG; Start 07/29/18 at 20:00 Amlodipine Besylate (Norvasc) 2.5 mg BID PO ; Start 07/30/18 at 21:00 GRISELDA DENNIS Jul 30, 2018 15:07
--- NOTE | 2018-07-30 16:31 | CONS ---
Assessment/Plan Assessment/Plan Hospital Course (Demo Recall) # sepsis, leukocytosis, SIRS, pulmonary, cardiac - recurrent leukocytosis due to bacteremia (below), improved - s/p septic shock due to pneumonia and C diff colitis - acute on chronic hypoxic respiratory failure, persistent - s/p reintubation 05/12/2018 - s/p re-do trach on 05/29/2018 - recurrent colonization of the anterior neck wound with ESBL+kleb, MRSA, GBS, corynebacteria on 05/06/2018 - h/o pneumonia vs. colonization of the airway by pseudomonas and ESBL+klebsiella - h/o possible, recurrent HCAP due to pseudomonas and ESBL+klebsiella - h/o recurrent HCAP due to MRSA and Enterobacter (culture of tracheal aspirate on 07/16/2017 that was collected at [facility]) . Pt took vancomycin and ceftazidime - h/o decannulation prior to admission - h/o tracheostomy on 06/11/2017 - h/o SIRS from UGIB in 2018 - h/o thoracentesis on 07/18/2017, transudative (protein <2, LDH 279) - h/o bleeding from the trach site in 2018 - h/o septic shock due to pneumonia, ARDS, bacteremia, fungemia in 2018 - h/o ARDS in 2018 - h/o smoking - COPD - h/o ILD per medical record - h/o PAF, improved - echodense structure in posterior leafleat region, differential includes calcification vs vegetation per 2D echo 07/15/2018 # GI - s/p possible ileus or enterocolitis on CT abd/pel 06/15/2018-->follow up CT on 07/15/2018 showed no evidence of urolithiasis, obstructive uropathy or diverticulitis; it showed small to moderate ascites - C diff colitis, diagnosed on 05/11/2018. Pt is on pGT vancomycin (05/11/2018-); Pt previously took IV metronidazole (05/11/2018-05/29/2018; restart 05/30/2018- 06/05/18) too - Pt had multiple negative C. diff tests at [facility] and at OSH in the past; none was positive until 05/11/2018 - dysphagia - h/o PEG placement 06/13/2018 - protein calorie malnutrition - h/o coffee ground emesis/UGIB on 12/23/2017 due to deep ulceration of distal esophagus and gastritis on EGD 12/26/2017. No e/o H. pylori - h/o possible appendicitis on CT on 11/22/2017, Pt took ertapenem (11/24/2017- 12/01/2017) - h/o extensive adhesions lower abdominal and pelvis between small bowel to each other and to colon and to abdominal wall, anterior pelvic wall chronic abscess secondary to probably an old perforated diverticulitis, torsion of small bowel around these dense adhesion causing multiple obstructive points - h/o laparoscopic exploration and extensive lysis of adhesions and drainage of anterior pelvic wall abscess 09/16/2017. Cultures were negative, no e/o malignancy. Pt took pip/tazo (09/16/2017-09/26/2017) - h/o EGD and exchange of PEG on 09/01/2017 - h/o partial obstruction mid jejunum in L anterior central pelvis with suggestion of a 3 cm soft tissue mass on CT 08/28/2017 - h/o internal stomal deep ulcer behind the internal bumper, gastritis and esophagitis, Rodriguez's cannot be ruled out, per EGD with biopsy 07/23/2017 - h/o GIB s/p flex sig showed polyp; stool OB negative on 06/29/17 - h/o stool OB positive status - h/o SBO and ileus due to pain meds - h/o mildly elevated CEA # renal/ - s/p recurrent UTI due to pseudomonas (culture on 07/09/2018)-->Garza catheter was replaced on 07/14/2018 - s/p UTI due to MDR, CRE-klebsiella on 06/15/2018. S/p renally dosed amikacin for klebsiella in her urine culture (06/17-06/22/2018) - s/p UTI due to pseudomonas and ESBL+klebsiella on 06/09/2018, Pt took one dose of fosfomycin on 06/10/2018 and cipro 06/12-06/15/2018 - anasarca - started on HD on 05/15/2018, via Juan in R groin - recurrent NATHAN on CKD - 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 Her strain of CRE was sensitive to colistin, Avycaz, and Vabomere but resistant to Zerbaxa (reported on 05/19/2018) - metabolic acidosis - adrenal insufficiency - h/o vaginal bleed in 2018 - h/o colonization of urinary tract by ESBL+klebsiella, VRE - h/o recurrent, symptomatic UTI due to carbapenem-resistant kleb (MDR strain) per urine culture 10/04/17, 10/09/17, 10/21/2017, P took colistin (10/09/2017- 10/15/2017), fosfomycin for carbapenemase-producing klebsiella and VRE on 10/25/2017 and 10/28/2017 - h/o funguria - h/o urinary retention # bloodstream infections - bacteremia d/t pseudomonas aeruginosa 07/09/18, 07/10/18, 07/11/18, 07/12/18, 07/13/18, 07/15/18, 07/17/18. This is associated with PICC because the blood culture from PICC and phlebotomy on 07/13/2018 both grew the same bacteria. The tip of PICC that was removed on 07/14/18 also grew the same bacteria in culture. Latest Pseudomonas from blood cx on 07/17/2018 susceptible to amikacin, gentamicin, tobramycin, colistin, and Zerbaxa (R to Avycaz) 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; Pt declined surgery for MVR per outside medical records; TTE 07/01/17 did not mention any thrombus; s/p voriconazole (05/25/2017-08/01/2017) - h/o bacteremia due to MSSA and proteus s/p ceftriaxone; repeat blood cultures were negative on 06/14/2017 - s/p RUE PICC line placement 07/28/2018 # musculoskeletal and dermatological - dry skin - chronic wound of LLE - h/o infection of wound of LLE - h/o debridement of wound of LLE on 08/06/2017 - h/o recurrent herpes labialis, Pt took acyclovir, valacyclovir - h/o Osler's nodes (eschar) of R toes with erythematous skin; desquamation of the skin and open lacerations on R plantar foot. improved. Probable manifestation of endocarditis. Pt declined MRI on 08/06/2017 - h/o infection of R toes due to pseudomonas. coagulase negative Staph likely a colonizer - h/o intertrigo of the groin, resolved with nystatin powder - h/o scabies, locally crusted lesion over L scapula, s/p permethrin cream and pGT ivermectin on 08/11/2017, 08/12/2017, 08/19/2017. Repeat skin scraping on 08/21/2017 was negative for scabies # psych, neuro - chronic toxic metabolic encephalopathy, progressing - MRI brain shows no acute intracranial pathology - seizure activity per EEG 07/27/18 - on Dilantin - decreased hearing b/l - h/o critical illness polyneuropathy - anxiety/depression, bipolar d/o, seen by Psychiatry in the past - chronic pain syndrome - h/o medical non-compliance: she would refuse her medications, treatment and straight catheterization in 2017 - complete opacification of the bilateral mastoid air cells per MRI Brain 07/27/2018 # hematological, vascular - chronic anemia requiring blood transfusion intermittently - macrocytic anemia - aneurysmal dilatation of the distal aorta visualized on CT 06/15/2018 - PVD # other - hypothyroidism with elevated TSH - on Synthroid Recommendations: - Continue amikacin IV (07/09/2018-). Pt had a strain of pseudomonas that was resistant to all except for aminoglycoside - Continue renally dosed cefepime (07/14/2018-); Pt needs double coverage because amikacin alone has not cleared her bacteremia. Some strains of pseudomonas she had were pansensitive while other strains of pseudomonas were resistant to many antibiotics (MDR). Most recent pseudomonas from was S to ami, gent, tobra, colistin, Zerbaxa (R to Avycaz) - Pt will require a prolonged course of abx given likely vegetation on 2D echo; plan for 6 weeks - Continue vancomycin pGT (07/09/18/ - ) while on IV abx d/t pt's h/o C. diff. Pt completed IV metronidazole (07/09/18-07/15/18) - We recommend bi monthly Audiology testing for this pt who will likely require terminal worker aminoglycoside - Consider MARCIAL to r/o endocarditis so as to possibly limit pt's course of antib iotics/exposure to nephrotoxic agents. Although it may be difficult to distinguish between an old lesion vs a new lesion. - Monitor CrCl - Consider goals of continued aggressive care; overall prognosis appears poor especially in light of recent echo findings Management d/w JAYANT Jarrett and with Dr. Doyle Consultation Date/Type/Reason Admit Date/Time May 06, 2018 at 17:38 Initial Consult Date 05/07/18 Type of Consult Infectious Disease Requesting Provider: ROLAND GIRON MD Date/Time of Note DATE: 07/30/18 TIME: 16:31 24 HR Interval Summary Free Text/Dictation No acute issues per d/w nursing. Pseudomonas from blood cx on 07/17/2018 is susceptible to amikacin, gentamicin, tobramycin, colistin, and Zerbaxa (R to Avycaz) Subjective hx not possible: pt non-verbal Exam/Review of Systems Exam Vitals Vital Signs Date Temp Pulse Resp B/P (MAP) Pulse Ox O2 O2 Flow FiO2 Time Delivery Rate 07/30/18 70 12:01 07/30/18 23 100 30 11:36 07/30/18 98.7 121/65 11:30 (83) 07/30/18 Mechanical 04:00 Ventilator Trach Collar Intake and Output 07/29/18 07/29/18 07/30/18 1515:00 23:00 07:00 IntakeIntake Total 860 ml 600 ml 600 ml OutputOutput Total 500 ml 700 ml 550 ml BalanceBalance 360 ml -100 ml 50 ml Exam Constitutional: well developed, frail, obese, other (chronically debilitated) Psych: other (unable to assess d/t lethargy) Head: normocephalic, atraumatic Eyes: nl conjunctiva, nl lids, nl sclera ENMT: nl external ears & nose, nl nasal mucosa & septum, other (MM pink and dry; no obvious thrush noted) Neck: non-tender, other (trach is midline and connected to ventilator support) Respiratory: diminished breath sounds No wheezing Cardiovascular: regular rate and rhythm, edema (generalized) Gastrointestinal: soft, non-tender, other (G-tube c/d/i) Genitourinary - Female: other (Garza in place) Musculoskeletal: muscle weakness Extremities: normal pulses, edema, other (bilateral foot drop; RUE PICC c/d/i) Neurological: lethargic, other (eyes open; no tracking; no commands) Skin: ecchymosis, other ([place] and bilateral heels with foam dressing c/d/i) Results Result Diagram: 07/28/18 0611 07/30/18 0654 Results 24hrs Laboratory Tests Test 07/30/18 06:54 07/30/18 14:40 Sodium Level 140 Potassium Level 3.1 L Chloride Level 104 Carbon Dioxide Level 23 Anion Gap 13 Blood Urea Nitrogen 103 H Creatinine 2.43 H Est Glomerular Filtrat Rate mL/min Glucose Level 121 Calcium Level 9.5 Phosphorus Level 3.5 Magnesium Level 1.7 Phenytoin (Dilantin) Level 5.7 L 14.8 Medications Medication Current Medications IV Flush (NS 10 ml) 10 ml PRN IV ; Start 05/06/18 at 20:30 Zinc Sulfate (Zinc Sulfate) 220 mg DAILY GTB Last administered on 07/30/18 08:24; Admin Dose 220 MG; Start 05/07/18 at 09:00 Ondansetron HCl (Zofran Tab) 4 mg Q6H PRN GTB NAUSEA AND/OR VOMITING Last administered on 05/31/18 16:47; Admin Dose 4 MG; Start 05/07/18 at 00:15 Multivitamins (Multivitamin) 30 ml DAILY GTB Last administered on 07/30/18 08:24; Admin Dose 30 ML; Start 05/07/18 at 09:00 [facility]isc[facility] This patient goldman... PRN PRN XX WOUND CARE; Start 05/09/18 at 17:00 Acetaminophen (Tylenol Tab) 650 mg Q4H PRN PO MILD PAIN(1-3)OR ELEVATED TEMP Last administered on 07/30/18at 00:53; Admin Dose 650 MG; Start 05/31/18 at 13:00 Clonidine (Catapres) 0.1 mg Q6H PRN PO ELEVATED BLOOD PRESSURE Last administered on 07/30/18 01:47; Admin Dose 0.1 MG; Start 06/03/18 at 03:30 Bumetanide (Bumex) 1 mg BID DIURETICS GTB Last administered on 07/30/18 05:22; Admin Dose 1 MG; Start 06/11/18 at 18:00 Dicyclomine HCl (Bentyl) 20 mg Q8 PO Last administered on 07/30/18 13:29; Admin Dose 20 MG; Start 06/27/18 at 22:00 Cholestyramine Resin (Questran Light) 4 gm 0600,1200,1800,2300 GTB Last administered on 07/30/18 11:54; Admin Dose 4 GM; Start 06/27/18 at 18:00 Lorazepam (Ativan) 0.5 mg Q4 PRN IV ANXIETY Last administered on 07/29/18 20:47; Admin Dose 0.5 MG; Start 07/01/18 at 14:00 Metoprolol Tartrate (Lopressor) 50 mg Q8 GTB Last administered on 07/30/18 13:29; Admin Dose 50 MG; Start 07/05/18 at 22:00 Amikacin Sulfate (Amikacin Iv Per Pharmacy) 1 ea NOTE XX ; Start 07/09/18 at 17:30 Vancomycin HCl (Vancomycin Oral Syringe) 125 mg Q6 GTB Last administered on 07/30/18 11:53; Admin Dose 125 MG; Start 07/09/18 at 18:00 Epoetin Zen-epbx (Retacrit (Non-Esrd)) 10,000 unit MoWeFr@1700 SC Last administered on 07/29/18 17:40; Admin Dose 10,000 UNIT; Start 07/13/18 at 17:00 Cefepime HCl 50 ml @ 100 mls/hr Q24H IVPB Last administered on 07/29/18 17:44; Admin Dose 100 MLS/HR; Start 07/14/18 at 18:30 Albuterol/ Ipratropium (Duoneb) 3 ml Q2H RESP THERAPY PRN HHN WHEEZING Last administered on 07/21/18 23:06; Admin Dose 3 ML; Start 07/21/18 at 22:00 Amiodarone HCl (Cordarone) 200 mg BID GTB Last administered on 07/30/18 08:24; Admin Dose 200 MG; Start 07/22/18 at 21:00 Citric Acid/ Sodium Citrate (Bicitra) 60 ml DAILY PO Last administered on 07/30/18 08:24; Admin Dose 60 ML; Start 07/23/18 at 09:00 Amikacin Sulfate 400 mg/Dextrose 101.6 ml @ 101.6 mls/ hr Q5D IVPB ; Start 07/30/18 at 23:00 Levothyroxine Sodium (Synthroid) 75 mcg DAILY@06 GTB Last administered on 07/30/18at 05:22; Admin Dose 75 MCG; Start 07/28/18 at 06:00 Miscellaneous Information (*Order Clarification Bulletin) MEDICATION REQUIRES CLARIFICATI... Q8H XX ; Start 07/27/18 at 22:30 Nystatin (Nystatin Powder) 1 applic BID TOP Last administered on 07/30/18at 08:25; Admin Dose 1 APPLIC; Start 07/28/18 at 17:30 IV Flush (NS 10 ml) 10 ml Q8 PRN IV IV PROTOCOL; Start 07/28/18 at 19:00 Phenytoin (Dilantin) 200 mg Q12H IV Last administered on 07/30/18at 08:23; Admin Dose 200 MG; Start 07/29/18 at 20:00 Amlodipine Besylate (Norvasc) 2.5 mg BID PO ; Start 07/30/18 at 21:00 LAURA JOSHI NP Jul 30, 2018 16:31
[2018-07-30] MEDS: CEFEPIME 2GM/50 ML (PMX) 50 ML IVPB SCH (17:35)
[2018-07-30] MEDS: AMLODIPINE 2.5 MG TAB PO SCH (20:58)
[2018-07-30] MEDS: AMIKACIN 400 MG in DEXTROSE 5% 100 ML IVPB SCH (23:17)
[2018-07-31] VITALS (25 sets, daily range): BP systolic 121–157; BP diastolic 63–91; PULSE 63–102; RESP 18–30
--- NOTE | 2018-07-31 04:07 | PN ---
Date/Time of Note Date/Time of Note DATE: 07/31/18 TIME: 04:07 Assessment/Plan VTE Prophylaxis Risk score (from Nsg)>0 risk: 7 SCD applied (from Nsg): Yes Lines/Catheters IV Catheter Type (from Nrsg): PICC Line Central line still needed: Yes Urinary Cath still in place: Yes Reason Cath still needed: urinary retention Assessment/Plan Assessment/Plan -Possible acute metabolic encephalopathy. Dr. Mathew is following in neurology consultation. -Seizures, continue Dilantin -Persistent leukocytosis with Pseudomonas bacteremia 2 to PICC line infection, continue antibiotics per ID. Dr. Doyle is following in infection disease consultation. 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 TTE 07/16/18 with notion of echodense structure on the mitral valve, calcification vs vegetation. Dr. Scanlon is following in cardiology consultation. Patient needs IV cefepime and amikacin for treatment of bacteremia and presumed endocarditis for 5 weeks until 08/22/2018 per ID recommendations. -Hypothyroidism, continue levothyroxine. -MDR Klebsiella urinary tract infection, completed treatment with amikacin. -Atrial fibrillation was rapid ventricular response, patient remains in sinus rhythm continue metoprolol and amiodarone. -S/p septic shock secondary to urinary tract infection, anterior neck soft tissue infection, and C. difficile colitis. -C-diff colitis,resolved. -Acute respiratory failure requiring intubation and ventilatory support. Dr. Lambert is following in pulmonology consultation. -S/p tracheostomy on 05/29/18. -Acute kidney injury on chronic kidney disease. Started on HD this admission with recovery of renal function. Dr. Mckeon is following in nephrology consultation. -Anemia of chronic inflammation, stool for OB is negative, status post blood transfusion. Continue Epogen. -Metabolic acidosis, resolved. -Acute diastolic congestive heart failure. -Paroxysmal atrial fibrillation -COPD -Dysphagia with PEG. -G-tube mild malfunction, changed by GI Dr. Carolina is following in gastroenterology consultation. -Obesity -Critical care myopathy Further recommendations based on clinical course. Plan of care discussed with Dr. Eisenberg. Result Diagram: 07/28/18 0611 07/30/18 0654 Results 24hrs Laboratory Tests Test 07/30/18 06:54 07/30/18 14:40 Sodium Level 140 Potassium Level 3.1 L Chloride Level 104 Carbon Dioxide Level 23 Anion Gap 13 Blood Urea Nitrogen 103 H Creatinine 2.43 H Est Glomerular Filtrat Rate mL/min Glucose Level 121 Calcium Level 9.5 Phosphorus Level 3.5 Magnesium Level 1.7 Phenytoin (Dilantin) Level 5.7 L 14.8 Subjective 24 Hr Interval Summary Free Text/Dictation NAD PENDING PLACEMENT Exam/Review of Systems Exam Vitals Vital Signs Date Temp Pulse Resp B/P (MAP) Pulse Ox O2 O2 Flow FiO2 Time Delivery Rate 07/31/18 66 22 100 30 03:30 07/31/18 98.2 145/85 00:14 (105) 07/30/18 Mechanical 04:00 Ventilator Trach Collar Intake and Output 07/30/18 07/30/18 07/31/18 1515:00 23:00 07:00 IntakeIntake Total 740 ml OutputOutput Total 450 ml BalanceBalance 290 ml Results Results 24hrs Laboratory Tests Test 07/30/18 06:54 07/30/18 14:40 Sodium Level 140 Potassium Level 3.1 L Chloride Level 104 Carbon Dioxide Level 23 Anion Gap 13 Blood Urea Nitrogen 103 H Creatinine 2.43 H Est Glomerular Filtrat Rate mL/min Glucose Level 121 Calcium Level 9.5 Phosphorus Level 3.5 Magnesium Level 1.7 Phenytoin (Dilantin) Level 5.7 L 14.8 Medications Medication Current Medications IV Flush (NS 10 ml) 10 ml PRN IV ; Start 05/06/18 at 20:30 Zinc Sulfate (Zinc Sulfate) 220 mg DAILY GTB Last administered on 07/30/18at 08:24; Admin Dose 220 MG; Start 05/07/18 at 09:00 Ondansetron HCl (Zofran Tab) 4 mg Q6H PRN GTB NAUSEA AND/OR VOMITING Last administered on 05/31/18at 16:47; Admin Dose 4 MG; Start 05/07/18 at 00:15 Multivitamins (Multivitamin) 30 ml DAILY GTB Last administered on 07/30/18at 08:24; Admin Dose 30 ML; Start 05/07/18 at 09:00 Miscellaneous Information (Pending [facility] Order For Wound Care) This patient goldman... PRN PRN XX WOUND CARE; Start 05/09/18 at 17:00 Acetaminophen (Tylenol Tab) 650 mg Q4H PRN PO MILD PAIN(1-3)OR ELEVATED TEMP Last administered on 07/30/18 21:11; Admin Dose 650 MG; Start 05/31/18 at 13:00 Clonidine (Catapres) 0.1 mg Q6H PRN PO ELEVATED BLOOD PRESSURE Last administered on 07/30/18 20:59; Admin Dose 0.1 MG; Start 06/03/18 at 03:30 Bumetanide (Bumex) 1 mg BID DIURETICS GTB Last administered on 07/30/18 17:35; Admin Dose 1 MG; Start 06/11/18 at 18:00 Dicyclomine HCl (Bentyl) 20 mg Q8 PO Last administered on 07/30/18 21:53; Admin Dose 20 MG; Start 06/27/18 at 22:00 Cholestyramine Resin (Questran Light) 4 gm 0600,1200,1800,2300 GTB Last administered on 07/30/18 21:54; Admin Dose 4 GM; Start 06/27/18 at 18:00 Lorazepam (Ativan) 0.5 mg Q4 PRN IV ANXIETY Last administered on 07/29/18 20:47; Admin Dose 0.5 MG; Start 07/01/18 at 14:00 Metoprolol Tartrate (Lopressor) 50 mg Q8 GTB Last administered on 07/30/18 21:53; Admin Dose 50 MG; Start 07/05/18 at 22:00 Amikacin Sulfate (Amikacin Iv Per Pharmacy) 1 ea NOTE XX ; Start 07/09/18 at 17:30 Vancomycin HCl (Vancomycin Oral Syringe) 125 mg Q6 GTB Last administered on 07/30/18 23:40; Admin Dose 125 MG; Start 07/09/18 at 18:00 Epoetin Zen-epbx (Retacrit (Non-Esrd)) 10,000 unit MoWeFr@1700 SC Last administered on 07/29/18 17:40; Admin Dose 10,000 UNIT; Start 07/13/18 at 17:00 Cefepime HCl 50 ml @ 100 mls/hr Q24H IVPB Last administered on 07/30/18 17:35; Admin Dose 100 MLS/HR; Start 07/14/18 at 18:30 Albuterol/ Ipratropium (Duoneb) 3 ml Q2H RESP THERAPY PRN HHN WHEEZING Last administered on 07/21/18 23:06; Admin Dose 3 ML; Start 07/21/18 at 22:00 Amiodarone HCl (Cordarone) 200 mg BID GTB Last administered on 07/30/18at 20:59; Admin Dose 200 MG; Start 07/22/18 at 21:00 Citric Acid/ Sodium Citrate (Bicitra) 60 ml DAILY PO Last administered on 07/30/18 08:24; Admin Dose 60 ML; Start 07/23/18 at 09:00 Amikacin Sulfate 400 mg/Dextrose 101.6 ml @ 101.6 mls/ hr Q5D IVPB Last administered on 07/30/18 23:17; Admin Dose 101.6 MLS/HR; Start 07/30/18 at 23:00 Levothyroxine Sodium (Synthroid) 75 mcg DAILY@06 GTB Last administered on 07/30/18 05:22; Admin Dose 75 MCG; Start 07/28/18 at 06:00 Miscellaneous Information (*Order Clarification Bulletin) MEDICATION REQUIRES CLARIFICATI... Q8H XX ; Start 07/27/18 at 22:30 Nystatin (Nystatin Powder) 1 applic BID TOP Last administered on 07/30/18 21:00; Admin Dose 1 APPLIC; Start 07/28/18 at 17:30 IV Flush (NS 10 ml) 10 ml Q8 PRN IV IV PROTOCOL; Start 07/28/18 at 19:00 Phenytoin (Dilantin) 200 mg Q12H IV Last administered on 07/30/18at 20:54; Admin Dose 200 MG; Start 07/29/18 at 20:00 Amlodipine Besylate (Norvasc) 2.5 mg BID PO Last administered on 07/30/18at 20:58; Admin Dose 2.5 MG; Start 07/30/18 at 21:00 KERON MORAN Jul 31, 2018 04:07
[2018-07-31] MEDS: LEVOTHYROXINE 75 MCG TAB GTB SCH (05:00)
[2018-07-31] MEDS: VANCOMYCIN HCL 250 MG/5ML POSYG GTB SCH ×3 (05:00→17:39)
[2018-07-31] MEDS: DICYCLOMINE 10 MG CAP PO SCH ×3 (05:00→22:08)
[2018-07-31] MEDS: CHOLESTYRAMINE (LIGHT) 4 GM PACKET GTB SCH ×4 (05:00→22:08)
[2018-07-31] MEDS: BUMETANIDE 1 MG TAB GTB SCH ×2 (05:00→17:39)
[2018-07-31] MEDS: METOPROLOL 50 MG TAB GTB SCH ×3 (05:01→22:08)
--- NOTE | 2018-07-31 08:45 | PN ---
DATE: 07/31/2018 SUBJECTIVE: The patient is stable, no events overnight. No hemoptysis, hematemesis or hematochezia. No significant change in the patient's mental status. OBJECTIVE: VITAL SIGNS: Blood pressure is 142/72, respirations 18, pulse 65, temperature 97.5. HEENT: Head is normocephalic. NECK: Supple. HEART: Regular rate. LUNGS: Show diminished breath sounds at the base. ABDOMEN: Soft, nontender to palpation. No rebound or guarding. EXTREMITIES: Negative for clubbing, cyanosis, no edema. DERMATOLOGIC: No rashes. MUSCULOSKELETAL: No joint effusion. NEUROLOGIC: No change in exam. MEDICATIONS: Reviewed. LABORATORY DATA: Reviewed. ASSESSMENT AND PLAN: 1. Nonoliguric acute kidney injury with previous baseline creatinine of 2.0 mg/dL. Etiology of acut e kidney injury is secondary to acute tubular necrosis. The patient is status post hemodialysis. Th e patient's renal function has improved and appears to have stabilized around a creatinine of 2.0 to 2.5 mg/dL. At this point, continue current treatment plan, supportive care, renally dose all medicat ions, no immediate need to resume hemodialysis. 2. Volume overload. Etiology is secondary to diastolic heart failure, chronic kidney disease. Cont inue Bumex and monitor I's and O's, electrolytes and renal function closely. 3. Anemia. Continue to monitor hemoglobin and hematocrit levels. 4. Mineral bone disorder, monitor calcium and phosphorus levels. 5. Ventilator-dependent respiratory failure. Vent settings and ABG has been reviewed. Continue to monitor. 6. Sepsis, endocarditis. The patient is completing antibiotic course. 7. Status post Clostridium difficile. 8. Dysphagia. Continue tube feeding. 9. Encephalopathy, etiology is toxic metabolic, possible uremic. Continue to monitor. 10. Lower extremity wounds. Continue wound care. Dictated By: JEANA BANSAL DO NR/NTS Conf#: [id number] DID#: [id number] CC: QUINTEN UMAÑA MD; ROLAND GIRON MD;*EndCC*
[2018-07-31] MEDS: PHENYTOIN 100 MG INJ IV SCH ×2 (09:08→20:29)
[2018-07-31] MEDS: AMLODIPINE 2.5 MG TAB PO SCH ×2 (09:09→20:30)
[2018-07-31] MEDS: ZINC SULFATE 220 MG CAP GTB SCH (09:09)
[2018-07-31] MEDS: CITRIC ACID/NA CITRATE 30 ML CUP PO SCH (09:09)
[2018-07-31] MEDS: MULTIVITAMINS 30 ML CUP GTB SCH (09:09)
[2018-07-31] MEDS: AMIODARONE 200 MG TAB GTB SCH ×2 (09:09→20:30)
[2018-07-31] MEDS: BALSAM PERU/CASTOR OIL 60 GM TUBE TOP SCH ×2 (09:10→20:31)
[2018-07-31] MEDS: NYSTATIN 30 GM POWDER BTL TOP SCH ×2 (09:10→20:31)
--- NOTE | 2018-07-31 11:09 | CONS ---
Assessment/Plan Assessment/Plan Hospital Course (Demo Recall) Septic as well as hemorrhagic shock, improving Acute respiratory failure status post intubation and repeat tracheostomy Acute blood loss anemia History of respiratory failure status post decannulation Preserved ejection fraction echocardiogram 05/10/2018 Paroxysmal atrial fibrillation Acute kidney injury Presumed mitral valve endocarditis -Antibiotics as per infectious disease -Blood pressure trend improved after restarting amlodipine. Continue with holding parameters -Patient with paroxysmal atrial fibrillation, currently in sinus rhythm -Continue amiodarone as tolerated -Vent management as per pulmonary -Fluid management and electrolytes as per renal -No anticoagulation given recurrent anemia requiring blood transfusions Consultation Date/Type/Reason Admit Date/Time May 06, 2018 at 17:38 Initial Consult Date 05/10/18 Type of Consult Cardiology Requesting Provider: ROLAND GIRON MD Date/Time of Note DATE: 07/31/18 TIME: 11:08 24 HR Interval Summary Free Text/Dictation Patient seen and examined Exam/Review of Systems Vital Signs Vitals Vital Signs Date Temp Pulse Resp B/P (MAP) Pulse Ox O2 O2 Flow FiO2 Time Delivery Rate 07/31/18 30 10:15 07/31/18 65 08:18 07/31/18 97.5 19 142/72 99 07:45 (95) 07/30/18 Mechanical 04:00 Ventilator Trach Collar Intake and Output 07/30/18 07/30/18 07/31/18 1515:00 23:00 07:00 IntakeIntake Total 740 ml 600 ml OutputOutput Total 450 ml 950 ml BalanceBalance 290 ml -350 ml Exam Exam Awake, not following commands, no apparent distress Head: normocephalic Respiratory: other (Coarse breath sounds bilaterally, no wheezing) Cardiovascular: regular rate and rhythm (S1-S2 heard) Gastrointestinal: soft, non-tender, bowel sounds Extremities: edema Labs Result Diagram: 07/31/18 0614 07/31/18 0614 Results 24hrs Laboratory Tests Test 07/30/18 14:40 07/31/18 06:14 Phenytoin (Dilantin) Level 14.8 9.6 L White Blood Count 10.3 Red Blood Count 2.68 L Hemoglobin 9.1 L Hematocrit 29.6 L Mean Corpuscular Volume 110.4 H Mean Corpuscular Hemoglobin 34.0 H Mean Corpuscular Hemoglobin Concent 30.7 L Red Cell Distribution Width 22.7 H Platelet Count 186 # Mean Platelet Volume 11.2 H Immature Granulocytes % 0.600 H Neutrophils % 78.1 H Lymphocytes % 10.9 L Monocytes % 6.6 Eosinophils % 3.5 Basophils % 0.3 Nucleated Red Blood Cells % 0.3 H Immature Granulocytes # 0.060 H Neutrophils # 8.0 H Lymphocytes # 1.1 Monocytes # 0.7 Eosinophils # 0.4 Basophils # 0.0 Nucleated Red Blood Cells # 0.0 Sodium Level 141 Potassium Level 3.6 Chloride Level 105 Carbon Dioxide Level 22 Anion Gap 14 H Blood Urea Nitrogen 101 H Creatinine 2.38 H Est Glomerular Filtrat Rate mL/min Glucose Level 105 Calcium Level 9.2 Phosphorus Level 3.5 Magnesium Level 1.8 Medications Medications Current Medications IV Flush (NS 10 ml) 10 ml PRN IV ; Start 05/06/18 at 20:30 Zinc Sulfate (Zinc Sulfate) 220 mg DAILY GTB Last administered on 07/31/18 09:09; Admin Dose 220 MG; Start 05/07/18 at 09:00 Ondansetron HCl (Zofran Tab) 4 mg Q6H PRN GTB NAUSEA AND/OR VOMITING Last administered on 05/31/18 16:47; Admin Dose 4 MG; Start 05/07/18 at 00:15 Multivitamins (Multivitamin) 30 ml DAILY GTB Last administered on 07/31/18 09:09; Admin Dose 30 ML; Start 05/07/18 at 09:00 Miscellaneous Information (Pending Santyl Order For Wound Care) This patient goldman ... PRN PRN XX WOUND CARE; Start 05/09/18 at 17:00 Acetaminophen (Tylenol Tab) 650 mg Q4H PRN PO MILD PAIN(1-3)OR ELEVATED TEMP Last administered on 07/30/18 21:11; Admin Dose 650 MG; Start 05/31/18 at 13:00 Clonidine (Catapres) 0.1 mg Q6H PRN PO ELEVATED BLOOD PRESSURE Last administered on 07/30/18at 20:59; Admin Dose 0.1 MG; Start 06/03/18 at 03:30 Bumetanide (Bumex) 1 mg BID DIURETICS GTB Last administered on 07/31/18 05:00; Admin Dose 1 MG; Start 06/11/18 at 18:00 Dicyclomine HCl (Bentyl) 20 mg Q8 PO Last administered on 07/31/18 05:00; Admin Dose 20 MG; Start 06/27/18 at 22:00 Cholestyramine Resin (Questran Light) 4 gm 0600,1200,1800,2300 GTB Last administered on 07/31/18 05:00; Admin Dose 4 GM; Start 06/27/18 at 18:00 Lorazepam (Ativan) 0.5 mg Q4 PRN IV ANXIETY Last administered on 07/29/18 20:47; Admin Dose 0.5 MG; Start 07/01/18 at 14:00 Metoprolol Tartrate (Lopressor) 50 mg Q8 GTB Last administered on 07/31/18 05:01; Admin Dose 50 MG; Start 07/05/18 at 22:00 Amikacin Sulfate (Amikacin Iv Per Pharmacy) 1 ea NOTE XX ; Start 07/09/18 at 17:30 Vancomycin HCl (Vancomycin Oral Syringe) 125 mg Q6 GTB Last administered on 07/31/18 05:00; Admin Dose 125 MG; Start 07/09/18 at 18:00 Epoetin Zen-epbx (Retacrit (Non-Esrd)) 10,000 unit MoWeFr@1700 SC Last administered on 07/29/18 17:40; Admin Dose 10,000 UNIT; Start 07/13/18 at 17:00 Cefepime HCl 50 ml @ 100 mls/hr Q24H IVPB Last administered on 07/30/18 17:35; Admin Dose 100 MLS/HR; Start 07/14/18 at 18:30 Albuterol/ Ipratropium (Duoneb) 3 ml Q2H RESP THERAPY PRN HHN WHEEZING Last administered on 07/21/18 23:06; Admin Dose 3 ML; Start 07/21/18 at 22:00 Amiodarone HCl (Cordarone) 200 mg BID GTB Last administered on 07/31/18 09:09; Admin Dose 200 MG; Start 07/22/18 at 21:00 Citric Acid/ Sodium Citrate (Bicitra) 60 ml DAILY PO Last administered on 07/31/18 09:09; Admin Dose 60 ML; Start 07/23/18 at 09:00 Amikacin Sulfate 400 mg/Dextrose 101.6 ml @ 101.6 mls/ hr Q5D IVPB Last administered on 07/30/18at 23:17; Admin Dose 101.6 MLS/HR; Start 07/30/18 at 23:00 Levothyroxine Sodium (Synthroid) 75 mcg DAILY@06 GTB Last administered on 07/31/18at 05:00; Admin Dose 75 MCG; Start 07/28/18 at 06:00 Miscellaneous Information (*Order Clarification Bulletin) MEDICATION REQUIRES CLARIFICATI... Q8H XX ; Start 07/27/18 at 22:30 Nystatin (Nystatin Powder) 1 applic BID TOP Last administered on 07/31/18at 09:10; Admin Dose 1 APPLIC; Start 07/28/18 at 17:30 IV Flush (NS 10 ml) 10 ml Q8 PRN IV IV PROTOCOL; Start 07/28/18 at 19:00 Phenytoin (Dilantin) 200 mg Q12H IV Last administered on 07/31/18at 09:08; Admin Dose 200 MG; Start 07/29/18 at 20:00 Amlodipine Besylate (Norvasc) 2.5 mg BID PO Last administered on 07/31/18 09:09; Admin Dose 2.5 MG; Start 07/30/18 at 21:00 Evangelista Scanlon DO Jul 31, 2018 11:09
--- NOTE | 2018-07-31 15:46 | CONS ---
Assessment/Plan Assessment/Plan Hospital Course (Demo Recall) # sepsis, leukocytosis, SIRS, pulmonary, cardiac - recurrent leukocytosis due to bacteremia (below), improved - s/p septic shock due to pneumonia and C diff colitis - acute on chronic hypoxic respiratory failure, persistent - s/p reintubation 05/12/2018 - s/p re-do trach on 05/29/2018 - recurrent colonization of the anterior neck wound with ESBL+kleb, MRSA, GBS, corynebacteria on 05/06/2018 - h/o pneumonia vs. colonization of the airway by pseudomonas and ESBL+klebsiella - h/o possible, recurrent HCAP due to pseudomonas and ESBL+klebsiella - h/o recurrent HCAP due to MRSA and Enterobacter (culture of tracheal aspirate on 07/16/2017 that was collected at [facility]) . Pt took vancomycin and ceftazidime - h/o decannulation prior to admission - h/o tracheostomy on 06/11/2017 - h/o SIRS from UGIB in 2018 - h/o thoracentesis on 07/18/2017, transudative (protein <2, LDH 279) - h/o bleeding from the trach site in 2018 - h/o septic shock due to pneumonia, ARDS, bacteremia, fungemia in 2018 - h/o ARDS in 2018 - h/o smoking - COPD - h/o ILD per medical record - h/o PAF, improved - echodense structure in posterior leafleat region, differential includes calcification vs vegetation per 2D echo 07/15/2018 # GI - s/p possible ileus or enterocolitis on CT abd/pel 06/15/2018-->follow up CT on 07/15/2018 showed no evidence of urolithiasis, obstructive uropathy or diverticulitis; it showed small to moderate ascites - C diff colitis, diagnosed on 05/11/2018. Pt is on pGT vancomycin (05/11/2018-); Pt previously took IV metronidazole (05/11/2018-05/29/2018; restart 05/30/2018- 06/05/18) too - Pt had multiple negative C. diff tests at [facility] and at OSH in the past; none was positive until 05/11/2018 - dysphagia - h/o PEG placement 06/13/2018 - protein calorie malnutrition - h/o coffee ground emesis/UGIB on 12/23/2017 due to deep ulceration of distal esophagus and gastritis on EGD 12/26/2017. No e/o H. pylori - h/o possible appendicitis on CT on 11/22/2017, Pt took ertapenem (11/24/2017- 12/01/2017) - h/o extensive adhesions lower abdominal and pelvis between small bowel to each other and to colon and to abdominal wall, anterior pelvic wall chronic abscess secondary to probably an old perforated diverticulitis, torsion of small bowel around these dense adhesion causing multiple obstructive points - h/o laparoscopic exploration and extensive lysis of adhesions and drainage of anterior pelvic wall abscess 09/16/2017. Cultures were negative, no e/o malignancy. Pt took pip/tazo (09/16/2017-09/26/2017) - h/o EGD and exchange of PEG on 09/01/2017 - h/o partial obstruction mid jejunum in L anterior central pelvis with suggestion of a 3 cm soft tissue mass on CT 08/28/2017 - h/o internal stomal deep ulcer behind the internal bumper, gastritis and esophagitis, Rodriguez's cannot be ruled out, per EGD with biopsy 07/23/2017 - h/o GIB s/p flex sig showed polyp; stool OB negative on 06/29/17 - h/o stool OB positive status - h/o SBO and ileus due to pain meds - h/o mildly elevated CEA # renal/ - s/p recurrent UTI due to pseudomonas (culture on 07/09/2018)-->Garza catheter was replaced on 07/14/2018 - s/p UTI due to MDR, CRE-klebsiella on 06/15/2018. S/p renally dosed amikacin for klebsiella in her urine culture (06/17-06/22/2018) - s/p UTI due to pseudomonas and ESBL+klebsiella on 06/09/2018, Pt took one dose of fosfomycin on 06/10/2018 and cipro 06/12-06/15/2018 - anasarca - started on HD on 05/15/2018, via Juan in R groin - recurrent NATHAN on CKD - 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 Her strain of CRE was sensitive to colistin, Avycaz, and Vabomere but resistant to Zerbaxa (reported on 05/19/2018) - metabolic acidosis - adrenal insufficiency - h/o vaginal bleed in 2018 - h/o colonization of urinary tract by ESBL+klebsiella, VRE - h/o recurrent, symptomatic UTI due to carbapenem-resistant kleb (MDR strain) per urine culture 10/04/17, 10/09/17, 10/21/2017, P took colistin (10/09/2017- 10/15/2017), fosfomycin for carbapenemase-producing klebsiella and VRE on 10/25/2017 and 10/28/2017 - h/o funguria - h/o urinary retention # bloodstream infections - bacteremia d/t pseudomonas aeruginosa 07/09/18, 07/10/18, 07/11/18, 07/12/18, 07/13/18, 07/15/18, 07/17/18. This is associated with PICC because the blood culture from PICC and phlebotomy on 07/13/2018 both grew the same bacteria. The tip of PICC that was removed on 07/14/18 also grew the same bacteria in culture. Latest Pseudomonas from blood cx on 07/17/2018 susceptible to amikacin, gentamicin, tobramycin, colistin, and Zerbaxa (R to Avycaz) 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; Pt declined surgery for MVR per outside medical records; TTE 07/01/17 did not mention any thrombus; s/p voriconazole (05/25/2017-08/01/2017) - h/o bacteremia due to MSSA and proteus s/p ceftriaxone; repeat blood cultures were negative on 06/14/2017 - s/p RUE PICC line placement 07/28/2018 # musculoskeletal and dermatological - dry skin - chronic wound of LLE - h/o infection of wound of LLE - h/o debridement of wound of LLE on 08/06/2017 - h/o recurrent herpes labialis, Pt took acyclovir, valacyclovir - h/o Osler's nodes (eschar) of R toes with erythematous skin; desquamation of the skin and open lacerations on R plantar foot. improved. Probable manifestation of endocarditis. Pt declined MRI on 08/06/2017 - h/o infection of R toes due to pseudomonas. coagulase negative Staph likely a colonizer - h/o intertrigo of the groin, resolved with nystatin powder - h/o scabies, locally crusted lesion over L scapula, s/p permethrin cream and pGT ivermectin on 08/11/2017, 08/12/2017, 08/19/2017. Repeat skin scraping on 08/21/2017 was negative for scabies # psych, neuro - chronic toxic metabolic encephalopathy, progressing - MRI brain shows no acute intracranial pathology - seizure activity per EEG 07/27/18 - on Dilantin - decreased hearing b/l - h/o critical illness polyneuropathy - anxiety/depression, bipolar d/o, seen by Psychiatry in the past - chronic pain syndrome - h/o medical non-compliance: she would refuse her medications, treatment and straight catheterization in 2017 - complete opacification of the bilateral mastoid air cells per MRI Brain 07/27/2018 # hematological, vascular - chronic anemia requiring blood transfusion intermittently - macrocytic anemia - aneurysmal dilatation of the distal aorta visualized on CT 06/15/2018 - PVD # other - hypothyroidism with elevated TSH - on Synthroid Recommendations: - Continue amikacin IV (07/09/2018-). Pt had a strain of pseudomonas that was resistant to all except for aminoglycoside - Continue renally dosed cefepime (07/14/2018-); Pt needs double coverage because amikacin alone has not cleared her bacteremia. Some strains of pseudomonas she had were pansensitive while other strains of pseudomonas were resistant to many antibiotics (MDR). Most recent pseudomonas from was S to ami, gent, tobra, colistin, Zerbaxa (R to Avycaz) - Pt will require a prolonged course of abx given likely vegetation on 2D echo; plan for 6 weeks - Continue vancomycin pGT (07/09/18/ - ) while on IV abx d/t pt's h/o C. diff. Pt completed IV metronidazole (07/09/18-07/15/18) - We recommend bi monthly Audiology testing for this pt who will likely require meterman aminoglycoside; There is a local welfare officer in [place] who could possibly see patient. I placed a nursing order to have lead case manager organize/schedule this lizett. - Consider MARCIAL to r/o endocarditis so as to possibly limit pt's course of antibiotics/exposure to nephrotoxic agents. Although it may be difficult to distinguish between an old lesion vs a new lesion. - Monitor CrCl - Consider goals of continued aggressive care; overall prognosis appears poor especially in light of recent echo findings - d/w Pharmacy today. We can obtain Zerbaxa if needed but patient seems to be responding to current modality of therapy. We will continue to monitor closely and consider switch to Zerbaxa monotherapy if renal function/audiology testing necessitates. - Monitor amikacin levels Consultation Date/Type/Reason Admit Date/Time May 06, 2018 at 17:38 Initial Consult Date 05/10/18 Type of Consult ID Requesting Provider: ROLAND GIRON MD Date/Time of Note DATE: 07/31/18 TIME: 15:36 24 HR Interval Summary Free Text/Dictation d/w pharmacy at [facility] and care coordinated extensively. All options reviewed and discussed. d/w nursing. patient remains very lethargic Exam/Review of Systems Exam Vitals Vital Signs Date Temp Pulse Resp B/P (MAP) Pulse Ox O2 O2 Flow FiO2 Time Delivery Rate 07/31/18 68 12:13 07/31/18 97.6 19 121/81 100 11:26 (94) 07/31/18 30 10:15 07/30/18 Mechanical 04:00 Ventilator Trach Collar Intake and Output 07/30/18 07/30/18 07/31/18 1515:00 23:00 07:00 IntakeIntake Total 740 ml 600 ml OutputOutput Total 450 ml 950 ml BalanceBalance 290 ml -350 ml Exam sleeping peacefully. Constitutional: non-verbal, other (lethargic) Head: normocephalic, atraumatic Eyes: EOMI Neck: supple Respiratory: clear to auscultation Cardiovascular: regular rate and rhythm Gastrointestinal: soft Results Result Diagram: 07/31/18 0614 07/31/18 0614 Results 24hrs Laboratory Tests Test 07/31/18 06:14 White Blood Count 10.3 Red Blood Count 2.68 L Hemoglobin 9.1 L Hematocrit 29.6 L Mean Corpuscular Volume 110.4 H Mean Corpuscular Hemoglobin 34.0 H Mean Corpuscular Hemoglobin Concent 30.7 L Red Cell Distribution Width 22.7 H Platelet Count 186 # Mean Platelet Volume 11.2 H Immature Granulocytes % 0.600 H Neutrophils % 78.1 H Lymphocytes % 10.9 L Monocytes % 6.6 Eosinophils % 3.5 Basophils % 0.3 Nucleated Red Blood Cells % 0.3 H Immature Granulocytes # 0.060 H Neutrophils # 8.0 H Lymphocytes # 1.1 Monocytes # 0.7 Eosinophils # 0.4 Basophils # 0.0 Nucleated Red Blood Cells # 0.0 Sodium Level 141 Potassium Level 3.6 Chloride Level 105 Carbon Dioxide Level 22 Anion Gap 14 H Blood Urea Nitrogen 101 H Creatinine 2.38 H Est Glomerular Filtrat Rate mL/min Glucose Level 105 Calcium Level 9.2 Phosphorus Level 3.5 Magnesium Level 1.8 Phenytoin (Dilantin) Level 9.6 L Medications Medication Current Medications IV Flush (NS 10 ml) 10 ml PRN IV ; Start 05/06/18 at 20:30 Zinc Sulfate (Zinc Sulfate) 220 mg DAILY GTB Last administered on 07/31/18at 09:09; Admin Dose 220 MG; Start 05/07/18 at 09:00 Ondansetron HCl (Zofran Tab) 4 mg Q6H PRN GTB NAUSEA AND/OR VOMITING Last admin istered on 05/31/18at 16:47; Admin Dose 4 MG; Start 05/07/18 at 00:15 Multivitamins (Multivitamin) 30 ml DAILY GTB Last administered on 07/31/18at 09:09; Admin Dose 30 ML; Start 05/07/18 at 09:00 Miscellaneous Information (Pending Santyl Order For Wound Care) This patient goldman... PRN PRN XX WOUND CARE; Start 05/09/18 at 17:00 Acetaminophen (Tylenol Tab) 650 mg Q4H PRN PO MILD PAIN(1-3)OR ELEVATED TEMP Last administered on 07/30/18at 21:11; Admin Dose 650 MG; Start 05/31/18 at 13:00 Clonidine (Catapres) 0.1 mg Q6H PRN PO ELEVATED BLOOD PRESSURE Last administered on 07/30/18at 20:59; Admin Dose 0.1 MG; Start 06/03/18 at 03:30 Bumetanide (Bumex) 1 mg BID DIURETICS GTB Last administered on 07/31/18 05:00; Admin Dose 1 MG; Start 06/11/18 at 18:00 Dicyclomine HCl (Bentyl) 20 mg Q8 PO Last administered on 07/31/18 13:29; Admin Dose 20 MG; Start 06/27/18 at 22:00 Cholestyramine Resin (Questran Light) 4 gm 0600,1200,1800,2300 GTB Last administered on 07/31/18 11:16; Admin Dose 4 GM; Start 06/27/18 at 18:00 Lorazepam (Ativan) 0.5 mg Q4 PRN IV ANXIETY Last administered on 07/29/18 20:47; Admin Dose 0.5 MG; Start 07/01/18 at 14:00 Metoprolol Tartrate (Lopressor) 50 mg Q8 GTB Last administered on 07/31/18 13:30; Admin Dose 50 MG; Start 07/05/18 at 22:00 Amikacin Sulfate (Amikacin Iv Per Pharmacy) 1 ea NOTE XX ; Start 07/09/18 at 17:30 Vancomycin HCl (Vancomycin Oral Syringe) 125 mg Q6 GTB Last administered on 07/31/18 11:16; Admin Dose 125 MG; Start 07/09/18 at 18:00 Epoetin Zen-epbx (Retacrit (Non-Esrd)) 10,000 unit MoWeFr@1700 SC Last administered on 07/29/18 17:40; Admin Dose 10,000 UNIT; Start 07/13/18 at 17:00 Cefepime HCl 50 ml @ 100 mls/hr Q24H IVPB Last administered on 07/30/18 17:35; Admin Dose 100 MLS/HR; Start 07/14/18 at 18:30 Albuterol/ Ipratropium (Duoneb) 3 ml Q2H RESP THERAPY PRN HHN WHEEZING Last administered on 07/21/18 23:06; Admin Dose 3 ML; Start 07/21/18 at 22:00 Amiodarone HCl (Cordarone) 200 mg BID GTB Last administered on 07/31/18 09:09; Admin Dose 200 MG; Start 07/22/18 at 21:00 Citric Acid/ Sodium Citrate (Bicitra) 60 ml DAILY PO Last administered on 07/31/18at 09:09; Admin Dose 60 ML; Start 07/23/18 at 09:00 Amikacin Sulfate 400 mg/Dextrose 101.6 ml @ 101.6 mls/ hr Q5D IVPB Last administered on 07/30/18at 23:17; Admin Dose 101.6 MLS/HR; Start 07/30/18 at 23:00 Levothyroxine Sodium (Synthroid) 75 mcg DAILY@06 GTB Last administered on 07/31/18at 05:00; Admin Dose 75 MCG; Start 07/28/18 at 06:00 Miscellaneous Information (*Order Clarification Bulletin) MEDICATION REQUIRES CLARIFICATI... Q8H XX ; Start 07/27/18 at 22:30 Nystatin (Nystatin Powder) 1 applic BID TOP Last administered on 07/31/18at 09:10; Admin Dose 1 APPLIC; Start 07/28/18 at 17:30 IV Flush (NS 10 ml) 10 ml Q8 PRN IV IV PROTOCOL; Start 07/28/18 at 19:00 Phenytoin (Dilantin) 200 mg Q12H IV Last administered on 07/31/18at 09:08; Admin Dose 200 MG; Start 07/29/18 at 20:00 Amlodipine Besylate (Norvasc) 2.5 mg BID PO Last administered on 07/31/18at 09:09; Admin Dose 2.5 MG; Start 07/30/18 at 21:00 Miscellaneous Information (*Order Clarification Bulletin) MEDICATION REQUIRES CLARIFICATI... Q8H XX ; Start 07/31/18 at 14:30; Stop 08/02/18 at 23:00 MANN VALDEZ MD Jul 31, 2018 15:46
[2018-07-31] MEDS: EPOETIN ALFA-EPBX (NON-ESRD 10,000 UNIT/ML VIAL SC SCH (17:38)
[2018-07-31] MEDS: CEFEPIME 2GM/50 ML (PMX) 50 ML IVPB SCH (17:39)
[2018-08-01] VITALS (23 sets, daily range): BP systolic 132–141; BP diastolic 57–79; PULSE 64–80; RESP 20–29
[2018-08-01] MEDS: VANCOMYCIN HCL 250 MG/5ML POSYG GTB SCH ×4 (00:08→18:12)
[2018-08-01] MEDS: DICYCLOMINE 10 MG CAP PO SCH ×3 (05:54→22:02)
[2018-08-01] MEDS: BUMETANIDE 1 MG TAB GTB SCH ×2 (05:54→09:46)
[2018-08-01] MEDS: LEVOTHYROXINE 75 MCG TAB GTB SCH (05:54)
[2018-08-01] MEDS: METOPROLOL 50 MG TAB GTB SCH ×3 (05:55→22:07)
[2018-08-01] MEDS: CHOLESTYRAMINE (LIGHT) 4 GM PACKET GTB SCH ×4 (05:59→23:06)
--- NOTE | 2018-08-01 09:27 | CONS ---
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 Continue with holding parameters -Patient with paroxysmal atrial fibrillation, currently in sinus rhythm -Continue amiodarone as tolerated -Vent management as per pulmonary -Fluid management and electrolytes as per renal -No anticoagulation given recurrent anemia requiring blood transfusions Consultation Date/Type/Reason Admit Date/Time May 06, 2018 at 17:38 Initial Consult Date 05/10/18 Type of Consult Cardiology Requesting Provider: ROLAND GIRON MD Date/Time of Note DATE: 08/01/18 TIME: 09:26 24 HR Interval Summary Free Text/Dictation the patient with no chamnge Exam/Review of Systems Vital Signs Vitals Vital Signs Date Temp Pulse Resp B/P (MAP) Pulse Ox O2 O2 Flow FiO2 Time Delivery Rate 08/01/18 65 08:21 08/01/18 98.6 22 136/74 100 Mechanical 07:55 (94) Ventilator Trach Collar 08/01/18 30 05:25 Intake and Output 07/31/18 07/31/18 08/01/18 1515:00 23:00 07:00 IntakeIntake Total 740 ml 840 ml OutputOutput Total 500 ml 900 ml BalanceBalance 240 ml -60 ml Labs Result Diagram: 08/01/18 0632 08/01/18 0632 Results 24hrs Laboratory Tests Test 08/01/18 06:32 White Blood Count 9.6 Red Blood Count 2.82 L Hemoglobin 9.3 L Hematocrit 30.8 L Mean Corpuscular Volume 109.2 H Mean Corpuscular Hemoglobin 33.0 Mean Corpuscular Hemoglobin Concent 30.2 L Red Cell Distribution Width 22.8 H Platelet Count 189 Mean Platelet Volume 11.2 H Immature Granulocytes % 0.600 H Neutrophils % 76.6 Lymphocytes % 10.6 L Monocytes % 7.4 Eosinophils % 4.4 Basophils % 0.4 Nucleated Red Blood Cells % 0.3 H Immature Granulocytes # 0.060 H Neutrophils # 7.3 Lymphocytes # 1.0 Monocytes # 0.7 Eosinophils # 0.4 Basophils # 0.0 Nucleated Red Blood Cells # 0.0 Sodium Level 139 Potassium Level 3.5 Chloride Level 104 Carbon Dioxide Level 23 Anion Gap 12 Blood Urea Nitrogen 100 H Creatinine 2.41 H Est Glomerular Filtrat Rate mL/min Glucose Level 134 Calcium Level 9.4 Medications Medications Current Medications IV Flush (NS 10 ml) 10 ml PRN IV ; Start 05/06/18 at 20:30 Zinc Sulfate (Zinc Sulfate) 220 mg DAILY GTB Last administered on 07/31/18 09:09; Admin Dose 220 MG; Start 05/07/18 at 09:00 Ondansetron HCl (Zofran Tab) 4 mg Q6H PRN GTB NAUSEA AND/OR VOMITING Last administered on 05/31/18 16:47; Admin Dose 4 MG; Start 05/07/18 at 00:15 Multivitamins (Multivitamin) 30 ml DAILY GTB Last administered on 07/31/18 09:09; Admin Dose 30 ML; Start 05/07/18 at 09:00 Miscellaneous Information (Pending [facility] Order For Wound Care) This patient goldman... PRN PRN XX WOUND CARE; Start 05/09/18 at 17:00 Acetaminophen (Tylenol Tab) 650 mg Q4H PRN PO MILD PAIN(1-3)OR ELEVATED TEMP Last administered on 07/30/18 21:11; Admin Dose 650 MG; Start 05/31/18 at 13:00 Clonidine (Catapres) 0.1 mg Q6H PRN PO ELEVATED BLOOD PRESSURE Last administered on 07/30/18 20:59; Admin Dose 0.1 MG; Start 06/03/18 at 03:30 Bumetanide (Bumex) 1 mg BID DIURETICS GTB Last administered on 08/01/18 05:54; Admin Dose 1 MG; Start 06/11/18 at 18:00 Dicyclomine HCl (Bentyl) 20 mg Q8 PO Last administered on 08/01/18 05:54; Admin Dose 20 MG; Start 06/27/18 at 22:00 Cholestyramine Resin (Questran Light) 4 gm 0600,1200,1800,2300 GTB Last administered on 08/01/18 05:59; Admin Dose 4 GM; Start 06/27/18 at 18:00 Lorazepam (Ativan) 0.5 mg Q4 PRN IV ANXIETY Last administered on 07/29/18 20:47; Admin Dose 0.5 MG; Start 07/01/18 at 14:00 Metoprolol Tartrate (Lopressor) 50 mg Q8 GTB Last administered on 08/01/18 05:55; Admin Dose 50 MG; Start 07/05/18 at 22:00 Amikacin Sulfate (Amikacin Iv Per Pharmacy) 1 ea NOTE XX ; Start 07/09/18 at 17:30 Vancomycin HCl (Vancomycin Oral Syringe) 125 mg Q6 GTB Last administered on 08/01/18 05:54; Admin Dose 125 MG; Start 07/09/18 at 18:00 Epoetin Zen-epbx (Retacrit (Non-Esrd)) 10,000 unit MoWeFr@1700 SC Last adm inistered on 07/31/18 17:38; Admin Dose 10,000 UNIT; Start 07/13/18 at 17:00 Cefepime HCl 50 ml @ 100 mls/hr Q24H IVPB Last administered on 07/31/18 17:39; Admin Dose 100 MLS/HR; Start 07/14/18 at 18:30 Albuterol/ Ipratropium (Duoneb) 3 ml Q2H RESP THERAPY PRN HHN WHEEZING Last administered on 07/21/18 23:06; Admin Dose 3 ML; Start 07/21/18 at 22:00 Amiodarone HCl (Cordarone) 200 mg BID GTB Last administered on 07/31/18 20:30; Admin Dose 200 MG; Start 07/22/18 at 21:00 Citric Acid/ Sodium Citrate (Bicitra) 60 ml DAILY PO Last administered on 07/31/18 09:09; Admin Dose 60 ML; Start 07/23/18 at 09:00 Amikacin Sulfate 400 mg/Dextrose 101.6 ml @ 101.6 mls/ hr Q5D IVPB Last administered on 07/30/18 23:17; Admin Dose 101.6 MLS/HR; Start 07/30/18 at 23:00 Levothyroxine Sodium (Synthroid) 75 mcg DAILY@06 GTB Last administered on 08/01/18 05:54; Admin Dose 75 MCG; Start 07/28/18 at 06:00 Miscellaneous Information (*Order Clarification Bulletin) MEDICATION REQUIRES CLARIFICATI... Q8H XX ; Start 07/27/18 at 22:30 Nystatin (Nystatin Powder) 1 applic BID TOP Last administered on 07/31/18at 20:31; Admin Dose 1 APPLIC; Start 07/28/18 at 17:30 IV Flush (NS 10 ml) 10 ml Q8 PRN IV IV PROTOCOL; Start 07/28/18 at 19:00 Phenytoin (Dilantin) 200 mg Q12H IV Last administered on 07/31/18at 20:29; Admin Dose 200 MG; Start 07/29/18 at 20:00 Amlodipine Besylate (Norvasc) 2.5 mg BID PO Last administered on 07/31/18at 20:30; Admin Dose 2.5 MG; Start 07/30/18 at 21:00 Miscellaneous Information (*Order Clarification Bulletin) MEDICATION REQUIRES CLARIFICATI... Q8H XX ; Start 07/31/18 at 14:30; Stop 08/02/18 at 23:00 CODY SO MD Aug 01, 2018 09:27
--- NOTE | 2018-08-01 09:42 | CONS ---
[facility] HCIS Consult Follow-up Patient Name: Zuly Mcwilliams Unit Number: [id number] Date of : 1945 Patient Status: Admitted Inpatient Attending Doctor: Roland Giron MD Edit: CELESTINE SANCHEZ M.D. on 08/03/18 @ 16:58 Daniel: I discussed the management with DIRECTOR [facility] Merle and agree Assessment/Plan Assessment/Plan Hospital Course (Demo Recall) # sepsis, leukocytosis, SIRS, pulmonary, cardiac - recurrent leukocytosis due to bacteremia (below), improved - s/p septic shock due to pneumonia and C diff colitis - acute on chronic hypoxic respiratory failure, persistent - s/p reintubation 05/12/2018 - s/p re-do trach on 05/29/2018 - recurrent colonization of the anterior neck wound with ESBL+kleb, MRSA, GBS, corynebacteria on 05/06/2018 - h/o pneumonia vs. colonization of the airway by pseudomonas and ESBL +klebsiella - h/o possible, recurrent HCAP due to pseudomonas and ESBL+klebsiella - h/o recurrent HCAP due to MRSA and Enterobacter (culture of tracheal aspirate on 07/16/2017 that was collected at [facility]) . Pt took vancomycin and ceftazidime - h/o decannulation prior to admission - h/o tracheostomy on 06/11/2017 - h/o SIRS from UGIB in 2018 - h/o thoracentesis on 07/18/2017, transudative (protein <2, LDH 279) - h/o bleeding from the trach site in 2018 - h/o septic shock due to pneumonia, ARDS, bacteremia, fungemia in 2018 - h/o ARDS in 2018 - h/o smoking - COPD - h/o ILD per medical record - h/o PAF, improved - echodense structure in posterior leafleat region, differential includes calcification vs vegetation per 2D echo 07/15/2018 # GI - s/p possible ileus or enterocolitis on CT abd/pel 06/15/2018-->follow up CT on 07/15/2018 showed no evidence of urolithiasis, obstructive uropathy or divertic ulitis; it showed small to moderate ascites - C diff colitis, diagnosed on 05/11/2018. Pt is on pGT vancomycin (05/11/2018-); Pt previously took IV metronidazole (05/11/2018-05/29/2018; restart 05/30/2018- 06/05/18) too - Pt had multiple negative C. diff tests at [facility] and at OSH in the past; none was positive until 05/11/2018 - dysphagia - h/o PEG placement 06/13/2018 - protein calorie malnutrition - h/o coffee ground emesis/UGIB on 12/23/2017 due to deep ulceration of distal esophagus and gastritis on EGD 12/26/2017. No e/o H. pylori - h/o possible appendicitis on CT on 11/22/2017, Pt took ertapenem (11/24/2017- 12/01/2017) - h/o extensive adhesions lower abdominal and pelvis between small bowel to each other and to colon and to abdominal wall, anterior pelvic wall chronic abscess secondary to probably an old perforated diverticulitis, torsion of small bowel around these dense adhesion causing multiple obstructive points - h/o laparoscopic exploration and extensive lysis of adhesions and drainage of anterior pelvic wall abscess 09/16/2017. Cultures were negative, no e/o malignancy. Pt took pip/tazo (09/16/2017-09/26/2017) - h/o EGD and exchange of PEG on 09/01/2017 - h/o partial obstruction mid jejunum in L anterior central pelvis with suggestion of a 3 cm soft tissue mass on CT 08/28/2017 - h/o internal stomal deep ulcer behind the internal bumper, gastritis and esophagitis, Rodriguez's cannot be ruled out, per EGD with biopsy 07/23/2017 - h/o GIB s/p flex sig showed polyp; stool OB negative on 06/29/17 - h/o stool OB positive status - h/o SBO and ileus due to pain meds - h/o mildly elevated CEA # renal/ - s/p recurrent UTI due to pseudomonas (culture on 07/09/2018)-->Garza catheter was replaced on 07/14/2018 - s/p UTI due to MDR, CRE-klebsiella on 06/15/2018. S/p renally dosed amikacin f or klebsiella in her urine culture (06/17-06/22/2018) - s/p UTI due to pseudomonas and ESBL+klebsiella on 06/09/2018, Pt took one dose of fosfomycin on 06/10/2018 and cipro 06/12-06/15/2018 - anasarca - started on HD on 05/15/2018, via Juan in R groin - recurrent NATHAN on CKD - 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 Her strain of CRE was sensitive to colistin, Avycaz, and Vabomere but resistant to Zerbaxa (reported on 05/19/2018) - metabolic acidosis - adrenal insufficiency - h/o vaginal bleed in 2018 - h/o colonization of urinary tract by ESBL+klebsiella, VRE - h/o recurrent, symptomatic UTI due to carbapenem-resistant kleb (MDR strain) per urine culture 10/04/17, 10/09/17, 10/21/2017, P took colistin (10/09/2017- 10/15/2017), fosfomycin for carbapenemase-producing klebsiella and VRE on 10/25/2017 and 10/28/2017 - h/o funguria - h/o urinary retention # bloodstream infections - bacteremia d/t pseudomonas aeruginosa 07/09/18, 07/10/18, 07/11/18, 07/12/18, 07/13/18, 07/15/18, 07/17/18. This is associated with PICC because the blood culture from PICC and phlebotomy on 07/13/2018 both grew the same bacteria. The tip of PICC that was removed on 07/14/18 also grew the same bacteria in culture. Latest Pseudomonas from blood cx on 07/17/2018 susceptible to amikacin, gentamicin, tobramycin, colistin, and Zerbaxa (R to Avycaz) 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; Pt declined surgery for MVR per outside medical records; TTE 07/01/17 did not mention any thrombus; s/p voriconazole (05/25/2017-08/01/2017) - h/o bacteremia due to MSSA and proteus s/p ceftriaxone; repeat blood cultures were negative on 06/14/2017 - s/p RUE PICC line placement 07/28/2018 # musculoskeletal and dermatological - dry skin - chronic wound of LLE - h/o infection of wound of LLE - h/o debridement of wound of LLE on 08/06/2017 - h/o recurrent herpes labialis, Pt took acyclovir, valacyclovir - h/o Osler's nodes (eschar) of R toes with erythematous skin; desquamation of the skin and open lacerations on R plantar foot. improved. Probable manifestation of endocarditis. Pt declined MRI on 08/06/2017 - h/o infection of R toes due to pseudomonas. coagulase negative Staph likely a colonizer - h/o intertrigo of the groin, resolved with nystatin powder - h/o scabies, locally crusted lesion over L scapula, s/p permethrin cream and pGT ivermectin on 08/11/2017, 08/12/2017, 08/19/2017. Repeat skin scraping on 08/21/2017 was negative for scabies # psych, neuro - chronic toxic metabolic encephalopathy, progressing - MRI brain shows no acute intracranial pathology - seizure activity per EEG 07/27/18 - on Dilantin - decreased hearing b/l - h/o critical illness polyneuropathy - anxiety/depression, bipolar d/o, seen by Psychiatry in the past - chronic pain syndrome - h/o medical non-compliance: she would refuse her medications, treatment and straight catheterization in 2018 - complete opacification of the bilateral mastoid air cells per MRI Brain 07/27/2018 # hematological, vascular - chronic anemia requiring blood transfusion intermittently - macrocytic anemia - aneurysmal dilatation of the distal aorta visualized on CT 06/15/2018 - PVD # other - hypothyroidism with elevated TSH - on Synthroid Recommendations: - Continue amikacin IV (07/09/2018-). Pt had a strain of pseudomonas that was resistant to all except for aminoglycoside - Continue renally dosed cefepime (07/14/2018-); Pt needs double coverage because amikacin alone has not cleared her bacteremia. Some strains of pseudomonas she had were pansensitive while other strains of pseudomonas were resistant to many antibiotics (MDR). Most recent pseudomonas from was S to ami, gent, tobra, colistin, Zerbaxa (R to Avycaz) - Pt will require a prolonged course of abx given likely vegetation on 2D echo; plan for 6 weeks - Continue vancomycin pGT (07/09/18/ - ) while on IV abx d/t pt's h/o C. diff. Pt completed IV metronidazole (07/09/18-07/15/18) - We recommend bi monthly Audiology testing for this pt who will likely require extrusion die repair manager aminoglycoside; - We recommend ENT consult to assess her hearing because she is on extrusion die repair manager aminoglycoside. - Consider MARCIAL to r/o endocarditis so as to possibly limit pt's course of antibiotics/exposure to nephrotoxic agents. Although it may be difficult to distinguish between an old lesion vs a new lesion. - Monitor CrCl - Consider goals of continued aggressive care; overall prognosis appears poor especially in light of recent echo findings - Dr. Doyle d/w Pharmacy on 07/31/18 - We can obtain Zerbaxa if needed but patient seems to be responding to current modality of therapy. We will continue to monitor closely and consider switch to Zerbaxa monotherapy if renal function/audiology testing necessitates. - Monitor amikacin levels Plan was d/w Dr. Sanchez in detail. Consultation Date/Type/Reason Admit Date/Time May 06, 2018 at 17:38 Initial Consult Date 05/07/18 Type of Consult ID Requesting Provider: ROLAND GIRON MD Date/Time of Note DATE: 08/01/18 TIME: 09:38 24 HR Interval Summary Free Text/Dictation Afebrile, wbc 9.6. No acute issues were reported by nursing. Exam/Review of Systems Exam Vitals Vital Signs Date Temp Pulse Resp B/P (MAP) Pulse Ox O2 O2 Flow FiO2 Time Delivery Rate 08/01/18 65 08:21 08/01/18 98.6 22 136/74 100 Mechanical 07:55 (94) Ventilator Trach Collar 08/01/18 30 05:25 Allergies Coded Allergies shellfish derived (Unverified Allergy, Unknown, 05/06/18) Intake and Output 07/31/18 07/31/18 08/01/18 1515:00 23:00 07:00 IntakeIntake Total 740 ml 840 ml OutputOutput Total 500 ml 900 ml BalanceBalance 240 ml -60 ml Exam Constitutional: well developed, frail, alert, other (chronically debilitated); Psych: other (flat affect, opened eyes and looked at me but did not attempt to communicate) Head: normocephalic, atraumatic Eyes: nl conjunctiva, nl lids ENMT: nl external ears & nose, nl nasal mucosa & septum, other (unable to examine op, kept mouth closed) Neck: supple, non-tender, other (trach midline, site is c/d/i, on vent) Respiratory: normal air movement, diminished breath sounds (bilaterally, anteriorly) no: wheezing Cardiovascular: regular rate and rhythm, nl pulses, edema (generalized) Gastrointestinal: soft, non-tender (appears nontender, patient did not react when I palpated), bowel sounds (normoactive), other (PEG site is c/d/i) Genitourinary - Female: other (f/c draining yellow urine) Musculoskeletal: muscle weakness Extremities: normal pulses, edema, other (BLE foot drop) Neurological: lethargic (sleeping, opened eyes and closed them again during assessment), other (did not attempt to communicate nor follow commands.) Skin: ecchymosis, other (R foot wrapped with kerlix and c/d/i, L [place] with a c/d/i kerlix dressing in place.) Results Result Diagram: 08/01/18 0632 08/01/18 0632 Results 24hrs Laboratory Tests Test 08/01/18 06:32 White Blood Count 9.6 Red Blood Count 2.82 L Hemoglobin 9.3 L Hematocrit 30.8 L Mean Corpuscular Volume 109.2 H Mean Corpuscular Hemoglobin 33.0 Mean Corpuscular Hemoglobin Concent 30.2 L Red Cell Distribution Width 22.8 H Platelet Count 189 Mean Platelet Volume 11.2 H Immature Granulocytes % 0.600 H Neutrophils % 76.6 Lymphocytes % 10.6 L Monocytes % 7.4 Eosinophils % 4.4 Basophils % 0.4 Nucleated Red Blood Cells % 0.3 H Immature Granulocytes # 0.060 H Neutrophils # 7.3 Lymphocytes # 1.0 Monocytes # 0.7 Eosinophils # 0.4 Basophils # 0.0 Nucleated Red Blood Cells # 0.0 Sodium Level 139 Potassium Level 3.5 Chloride Level 104 Carbon Dioxide Level 23 Anion Gap 12 Blood Urea Nitrogen 100 H Creatinine 2.41 H Est Glomerular Filtrat Rate mL/min Glucose Level 134 Calcium Level 9.4 Phenytoin (Dilantin) Level 10.5 Imaging Imaging US Upper extremity doppler 07/31/18 IMPRESSION: No sonographic evidence for venous thrombosis. Medications Medication Current Medications IV Flush (NS 10 ml) 10 ml PRN IV ; Start 05/06/18 at 20:30 Zinc Sulfate (Zinc Sulfate) 220 mg DAILY GTB Last administered on 07/31/18 09:09; Admin Dose 220 MG; Start 05/07/18 at 09:00 Ondansetron HCl (Zofran Tab) 4 mg Q6H PRN GTB NAUSEA AND/OR VOMITING Last administered on 05/31/18 16:47; Admin Dose 4 MG; Start 05/07/18 at 00:15 Multivitamins (Multivitamin) 30 ml DAILY GTB Last administered on 07/31/18 09:09; Admin Dose 30 ML; Start 05/07/18 at 09:00 Miscellaneous Information [facility] This patient goldman... PRN PRN XX WOUND CARE; Start 05/09/18 at 17:00 Acetaminophen (Tylenol Tab) 650 mg Q4H PRN PO MILD PAIN(1-3)OR ELEVATED TEMP Last administered on 07/30/18 21:11; Admin Dose 650 MG; Start 05/31/18 at 13:00 Clonidine (Catapres) 0.1 mg Q6H PRN PO ELEVATED BLOOD PRESSURE Last administered on 07/30/18 20:59; Admin Dose 0.1 MG; Start 06/03/18 at 03:30 Bumetanide (Bumex) 1 mg BID DIURETICS GTB Last administered on 08/01/18 05:54; Admin Dose 1 MG; Start 06/11/18 at 18:00 Dicyclomine HCl (Bentyl) 20 mg Q8 PO Last administered on 08/01/18 05:54; Admin Dose 20 MG; Start 06/27/18 at 22:00 Cholestyramine Resin (Questran Light) 4 gm 0600,1200,1800,2300 GTB Last administered on 08/01/18 05:59; Admin Dose 4 GM; Start 06/27/18 at 18:00 Lorazepam (Ativan) 0.5 mg Q4 PRN IV ANXIETY Last administered on 07/29/18 20:47; Admin Dose 0.5 MG; Start 07/01/18 at 14:00 Metoprolol Tartrate (Lopressor) 50 mg Q8 GTB Last administered on 08/01/18 05:55; Admin Dose 50 MG; Start 07/05/18 at 22:00 Amikacin Sulfate (Amikacin Iv Per Pharmacy) 1 ea NOTE XX ; Start 07/09/18 at 17:30 Vancomycin HCl (Vancomycin Oral Syringe) 125 mg Q6 GTB Last administered on 08/01/18 05:54; Admin Dose 125 MG; Start 07/09/18 at 18:00 Epoetin Zen-epbx (Retacrit (Non-Esrd)) 10,000 unit MoWeFr@1700 SC Last administered on 07/31/18 17:38; Admin Dose 10,000 UNIT; Start 07/13/18 at 17:00 Cefepime HCl 50 ml @ 100 mls/hr Q24H IVPB Last administered on 07/31/18 17 :39; Admin Dose 100 MLS/HR; Start 07/14/18 at 18:30 Albuterol/ Ipratropium (Duoneb) 3 ml Q2H RESP THERAPY PRN HHN WHEEZING Last administered on 07/21/18 23:06; Admin Dose 3 ML; Start 07/21/18 at 22:00 Amiodarone HCl (Cordarone) 200 mg BID GTB Last administered on 07/31/18 20:30; Admin Dose 200 MG; Start 07/22/18 at 21:00 Citric Acid/ Sodium Citrate (Bicitra) 60 ml DAILY PO Last administered on 09:09; Admin Dose 60 ML; Start 07/23/18 at 09:00 Amikacin Sulfate 400 mg/Dextrose 101.6 ml @ 101.6 mls/ hr Q5D IVPB Last administered on 07/30/18 23:17; Admin Dose 101.6 MLS/HR; Start 07/30/18 at 23:00 Levothyroxine Sodium (Synthroid) 75 mcg DAILY@06 GTB Last administered on 08/01/18at 05:54; Admin Dose 75 MCG; Start 07/28/18 at 06:00 Miscellaneous Information (*Order Clarification Bulletin) MEDICATION REQUIRES CLARIFICATI... Q8H XX ; Start 07/27/18 at 22:30 Nystatin (Nystatin Powder) 1 applic BID TOP Last administered on 07/31/18at 20:31; Admin Dose 1 APPLIC; Start 07/28/18 at 17:30 IV Flush (NS 10 ml) 10 ml Q8 PRN IV IV PROTOCOL; Start 07/28/18 at 19:00 Phenytoin (Dilantin) 200 mg Q12H IV Last administered on 07/31/18at 20:29; Admin Dose 200 MG; Start 07/29/18 at 20:00 Amlodipine Besylate (Norvasc) 2.5 mg BID PO Last administered on 07/31/18at 20:30; Admin Dose 2.5 MG; Start 07/30/18 at 21:00 Miscellaneous Information (*Order Clarification Bulletin) MEDICATION REQUIRES CLARIFICATI... Q8H XX ; Start 07/31/18 at 14:30; Stop 08/02/18 at 23:00 KENA MÉNDEZ NP Aug 01, 2018 09:42
[2018-08-01] MEDS: ZINC SULFATE 220 MG CAP GTB SCH (09:46)
[2018-08-01] MEDS: AMLODIPINE 2.5 MG TAB PO SCH ×2 (09:46→20:13)
[2018-08-01] MEDS: CITRIC ACID/NA CITRATE 30 ML CUP PO SCH (09:46)
[2018-08-01] MEDS: MULTIVITAMINS 30 ML CUP GTB SCH (09:46)
[2018-08-01] MEDS: AMIODARONE 200 MG TAB GTB SCH ×2 (09:47→20:13)
[2018-08-01] MEDS: PHENYTOIN 100 MG INJ IV SCH ×2 (09:47→20:13)
[2018-08-01] MEDS: BALSAM PERU/CASTOR OIL 60 GM TUBE TOP SCH ×2 (09:48→20:14)
[2018-08-01] MEDS: NYSTATIN 30 GM POWDER BTL TOP SCH ×2 (09:48→20:14)
--- NOTE | 2018-08-01 10:48 | PN ---
Date/Time of Note Date/Time of Note DATE: 08/01/18 TIME: 10:47 Assessment/Plan VTE Prophylaxis Risk score (from Ns)>0 risk: 5 SCD applied (from Ns): Yes Pharmacological prophylaxis: LMWH Lines/Catheters IV Catheter Type (from [facility]): PICC Line Central line still needed: Yes Urinary Cath still in place: Yes Reason Cath still needed: skin wounds contaminated by urine Assessment/Plan Hospital Course -Possible acute metabolic encephalopathy. Dr. Mathew is following in neurology consultation. -Seizures, continue Dilantin -Persistent leukocytosis with Pseudomonas bacteremia 2 to PICC line infection, continue antibiotics per ID. Dr. Doyle is following in infection disease consultation. 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 TTE 07/16/18 with notion of echodense structure on the mitral valve, calcification vs vegetation. Dr. Scanlon is fol lowing in cardiology consultation. Patient needs IV cefepime and amikacin for treatment of bacteremia and presumed endocarditis for 5 weeks until 08/22/2018 per ID recommendations. -Hypothyroidism, continue levothyroxine. -MDR Klebsiella urinary tract infection, completed treatment with amikacin. -Atrial fibrillation was rapid ventricular response, patient remains in sinus rhythm continue metoprolol and amiodarone. -S/p septic shock secondary to urinary tract infection, anterior neck soft tissue infection, and C. difficile colitis. -C-diff colitis,resolved. -Acute respiratory failure requiring intubation and ventilatory support. Dr. Lambert is following in pulmonology consultation. -S/p tracheostomy on 05/29/18. -Acute kidney injury on chronic kidney disease. Started on HD this admission with recovery of renal function. Dr. Mckeon is following in nephrology consultation. -Anemia of chronic inflammation, stool for OB is negative, status post blood transfusion. Continue Epogen. -Metabolic acidosis, resolved. -Acute diastolic congestive heart failure. -Paroxysmal atrial fibrillation -COPD -Dysphagia with PEG. -G-tube mild malfunction, changed by GI Dr. Carolina is following in gastroenterology consultation. -Obesity -Critical care myopathy Result Diagram: 08/01/18 0632 08/01/18 0632 Results 24hrs Laboratory Tests Test 08/01/18 06:32 White Blood Count 9.6 Red Blood Count 2.82 L Hemoglobin 9.3 L Hematocrit 30.8 L Mean Corpuscular Volume 109.2 H Mean Corpuscular Hemoglobin 33.0 Mean Corpuscular Hemoglobin Concent 30.2 L Red Cell Distribution Width 22.8 H Platelet Count 189 Mean Platelet Volume 11.2 H Immature Granulocytes % 0.600 H Neutrophils % 76.6 Lymphocytes % 10.6 L Monocytes % 7.4 Eosinophils % 4.4 Basophils % 0.4 Nucleated Red Blood Cells % 0.3 H Immature Granulocytes # 0.060 H Neutrophils # 7.3 Lymphocytes # 1.0 Monocytes # 0.7 Eosinophils # 0.4 Basophils # 0.0 Nucleated Red Blood Cells # 0.0 Sodium Level 139 Potassium Level 3.5 Chloride Level 104 Carbon Dioxide Level 23 Anion Gap 12 Blood Urea Nitrogen 100 H Creatinine 2.41 H Est Glomerular Filtrat Rate mL/min Glucose Level 134 Calcium Level 9.4 Phenytoin (Dilantin) Level 10.5 Subjective 24 Hr Interval Summary Free Text/Dictation Eyes open, on vent via trach Exam/Review of Systems Exam Vitals Vital Signs Date Temp Pulse Resp B/P (MAP) Pulse Ox O2 O2 Flow FiO2 Time Delivery Rate 08/01/18 69 27 100 30 09:30 08/01/18 98.6 136/74 Mechanical 07:55 (94) Ventilator Trach Collar Intake and Output 07/31/18 07/31/18 08/01/18 1515:00 23:00 07:00 IntakeIntake Total 740 ml 840 ml OutputOutput Total 500 ml 900 ml BalanceBalance 240 ml -60 ml Constitutional: well developed Head: normocephalic, atraumatic Neck: supple Respiratory: diminished breath sounds Cardiovascular: regular rate and rhythm Gastrointestinal: soft, non-tender Extremities: normal pulses Results Results 24hrs Laboratory Tests Test 08/01/18 06:32 White Blood Count 9.6 Red Blood Count 2.82 L Hemoglobin 9.3 L Hematocrit 30.8 L Mean Corpuscular Volume 109.2 H Mean Corpuscular Hemoglobin 33.0 Mean Corpuscular Hemoglobin Concent 30.2 L Red Cell Distribution Width 22.8 H Platelet Count 189 Mean Platelet Volume 11.2 H Immature Granulocytes % 0.600 H Neutrophils % 76.6 Lymphocytes % 10.6 L Monocytes % 7.4 Eosinophils % 4.4 Basophils % 0.4 Nucleated Red Blood Cells % 0.3 H Immature Granulocytes # 0.060 H Neutrophils # 7.3 Lymphocytes # 1.0 Monocytes # 0.7 Eosinophils # 0.4 Basophils # 0.0 Nucleated Red Blood Cells # 0.0 Sodium Level 139 Potassium Level 3.5 Chloride Level 104 Carbon Dioxide Level 23 Anion Gap 12 Blood Urea Nitrogen 100 H Creatinine 2.41 H Est Glomerular Filtrat Rate mL/min Glucose Level 134 Calcium Level 9.4 Phenytoin (Dilantin) Level 10.5 Medications Medication Current Medications IV Flush (NS 10 ml) 10 ml PRN IV ; Start 05/06/18 at 20:30 Zinc Sulfate (Zinc Sulfate) 220 mg DAILY GTB Last administered on 08/01/18 09:46; Admin Dose 220 MG; Start 05/07/18 at 09:00 Ondansetron HCl (Zofran Tab) 4 mg Q6H PRN GTB NAUSEA AND/OR VOMITING Last administered on 05/31/18 16:47; Admin Dose 4 MG; Start 05/07/18 at 00:15 Multivitamins (Multivitamin) 30 ml DAILY GTB Last administered on 08/01/18 09:46; Admin Dose 30 ML; Start 05/07/18 at 09:00 Miscellaneous Information (Pending Santyl Order For Wound Care) This patient goldman... PRN PRN XX WOUND CARE; Start 05/09/18 at 17:00 Acetaminophen (Tylenol Tab) 650 mg Q4H PRN PO MILD PAIN(1-3)OR ELEVATED TEMP Last administered on 07/30/18 21:11; Admin Dose 650 MG; Start 05/31/18 at 13:00 Clonidine (Catapres) 0.1 mg Q6H PRN PO ELEVATED BLOOD PRESSURE Last administered on 07/30/18 20:59; Admin Dose 0.1 MG; Start 06/03/18 at 03:30 Bumetanide (Bumex) 1 mg BID DIURETICS GTB Last administered on 08/01/18 09:46; Admin Dose 1 MG; Start 06/11/18 at 18:00 Dicyclomine HCl (Bentyl) 20 mg Q8 PO Last administered on 08/01/18 05:54; Admin Dose 20 MG; Start 06/27/18 at 22:00 Cholestyramine Resin (Questran Light) 4 gm 0600,1200,1800,2300 GTB Last administered on 08/01/18 05:59; Admin Dose 4 GM; Start 06/27/18 at 18:00 Lorazepam (Ativan) 0.5 mg Q4 PRN IV ANXIETY Last administered on 07/29/18 20:47; Admin Dose 0.5 MG; Start 07/01/18 at 14:00 Metoprolol Tartrate (Lopressor) 50 mg Q8 GTB Last administered on 08/01/18 05:55; Admin Dose 50 MG; Start 07/05/18 at 22:00 Amikacin Sulfate (Amikacin Iv Per Pharmacy) 1 ea NOTE XX ; Start 07/09/18 at 17:30 Vancomycin HCl (Vancomycin Oral Syringe) 125 mg Q6 GTB Last administered on 08/01/18 05:54; Admin Dose 125 MG; Start 07/09/18 at 18:00 Epoetin Zen-epbx (Retacrit (Non-Esrd)) 10,000 unit MoWeFr@1700 SC Last administered on 07/31/18 17:38; Admin Dose 10,000 UNIT; Start 07/13/18 at 17:00 Cefepime HCl 50 ml @ 100 mls/hr Q24H IVPB Last administered on 07/31/18 17:39; Admin Dose 100 MLS/HR; Start 07/14/18 at 18:30 Albuterol/ Ipratropium (Duoneb) 3 ml Q2H RESP THERAPY PRN HHN WHEEZING Last administered on 07/21/18 23:06; Admin Dose 3 ML; Start 07/21/18 at 22:00 Amiodarone HCl (Cordarone) 200 mg BID GTB Last administered on 08/01/18 09:47; Admin Dose 200 MG; Start 07/22/18 at 21:00 Citric Acid/ Sodium Citrate (Bicitra) 60 ml DAILY PO Last administered on 08/01/18 09:46; Admin Dose 60 ML; Start 07/23/18 at 09:00 Amikacin Sulfate 400 mg/Dextrose 101.6 ml @ 101.6 mls/ hr Q5D IVPB Last administered on 07/30/18 23:17; Admin Dose 101.6 MLS/HR; Start 07/30/18 at 23:00 Levothyroxine Sodium (Synthroid) 75 mcg DAILY@06 GTB Last administered on 6/15/19at 05:54; Admin Dose 75 MCG; Start 07/28/18 at 06:00 Miscellaneous Information (*Order Clarification Bulletin) MEDICATION REQUIRES CLARIFICATI... Q8H XX ; Start 07/27/18 at 22:30 Nystatin (Nystatin Powder) 1 applic BID TOP Last administered on 08/01/18at 09:48; Admin Dose 1 APPLIC; Start 07/28/18 at 17:30 IV Flush (NS 10 ml) 10 ml Q8 PRN IV IV PROTOCOL; Start 07/28/18 at 19:00 Phenytoin (Dilantin) 200 mg Q12H IV Last administered on 08/01/18at 09:47; Admin Dose 200 MG; Start 07/29/18 at 20:00 Amlodipine Besylate (Norvasc) 2.5 mg BID PO Last administered on 08/01/18at 09:46; Admin Dose 2.5 MG; Start 07/30/18 at 21:00 Miscellaneous Information (*Order Clarification Bulletin) MEDICATION REQUIRES CLARIFICATI... Q8H XX ; Start 07/31/18 at 14:30; Stop 08/02/18 at 23:00 STEPHANIE BAL Aug 01, 2018 10:48
--- NOTE | 2018-08-01 12:47 | CONS ---
Assessment/Plan Assessment/Plan Hospital Course (Demo Recall) 1. Nonoliguric acute kidney injury with previous baseline creatinine of 2.0 mg/dL. Etiology of acute kidney injury is secondary to acute tubular necrosis. The patient is status post hemodialysis. The patient's renal function has improved and appears to have stabilized around a creatinine of 2.0 to 2.5 mg/dL. At this point, continue current treatment plan, supportive care, renally dose a ll medications, no immediate need to resume hemodialysis. 2. Volume overload. Etiology is secondary to diastolic heart failure, chronic kidney disease. Continue Bumex and monitor I's and O's, electrolytes and renal function closely. 3. Anemia. Continue to monitor hemoglobin and hematocrit levels. 4. Mineral bone disorder, monitor calcium and phosphorus levels. 5. Ventilator-dependent respiratory failure. Vent settings and ABG has been reviewed. Continue to monitor. 6. Sepsis, endocarditis. The patient is completing antibiotic course. 7. Status post Clostridium difficile. 8. Dysphagia. Continue tube feeding. 9. Encephalopathy, etiology is toxic metabolic, possible uremic. Continue to monitor. 10. Lower extremity wounds. Continue wound care. Consultation Date/Type/Reason Admit Date/Time May 06, 2018 at 17:38 Initial Consult Date 05/10/18 Requesting Provider: ROLAND GIRON MD Date/Time of Note DATE: 08/01/18 TIME: 12:46 24 HR Interval Summary Free Text/Dictation adequate urine output vent settings reviewed no fever d/w rn gen nad cv rrr pulm ctab abd soft, nd, nt +bs ext: no edema Exam/Review of Systems Exam Vitals Vital Signs Date Temp Pulse Resp B/P (MAP) Pulse Ox O2 O2 Flow FiO2 Time Delivery Rate 08/01/18 68 12:19 08/01/18 98.6 22 141/75 100 Mechanical 11:42 (97) Ventilator Trach Collar 08/01/18 30 09:30 Intake and Output 07/31/18 07/31/18 08/01/18 1515:00 23:00 07:00 IntakeIntake Total 740 ml 840 ml OutputOutput Total 500 ml 900 ml BalanceBalance 240 ml -60 ml Results Result Diagram: 08/01/18 0632 08/01/18 0632 Results 24hrs Laboratory Tests Test 08/01/18 06:32 White Blood Count 9.6 Red Blood Count 2.82 L Hemoglobin 9.3 L Hematocrit 30.8 L Mean Corpuscular Volume 109.2 H Mean Corpuscular Hemoglobin 33.0 Mean Corpuscular Hemoglobin Concent 30.2 L Red Cell Distribution Width 22.8 H Platelet Count 189 Mean Platelet Volume 11.2 H Immature Granulocytes % 0.600 H Neutrophils % 76.6 Lymphocytes % 10.6 L Monocytes % 7.4 Eosinophils % 4.4 Basophils % 0.4 Nucleated Red Blood Cells % 0.3 H Immature Granulocytes # 0.060 H Neutrophils # 7.3 Lymphocytes # 1.0 Monocytes # 0.7 Eosinophils # 0.4 Basophils # 0.0 Nucleated Red Blood Cells # 0.0 Sodium Level 139 Potassium Level 3.5 Chloride Level 104 Carbon Dioxide Level 23 Anion Gap 12 Blood Urea Nitrogen 100 H Creatinine 2.41 H Est Glomerular Filtrat Rate mL/min Glucose Level 134 Calcium Level 9.4 Phenytoin (Dilantin) Level 10.5 Medications Medication Current Medications IV Flush (NS 10 ml) 10 ml PRN IV ; Start 05/06/18 at 20:30 Zinc Sulfate (Zinc Sulfate) 220 mg DAILY GTB Last administered on 08/01/18 09:46; Admin Dose 220 MG; Start 05/07/18 at 09:00 Ondansetron HCl (Zofran Tab) 4 mg Q6H PRN GTB NAUSEA AND/OR VOMITING Last administered on 05/31/18at 16:47; Admin Dose 4 MG; Start 05/07/18 at 00:15 Multivitamins (Multivitamin) 30 ml DAILY GTB Last administered on 08/01/18 09:46; Admin Dose 30 ML; Start 05/07/18 at 09:00 Miscellaneous Information (Pending Santyl Order For Wound Care) This patient goldman... PRN PRN XX WOUND CARE; Start 05/09/18 at 17:00 Acetaminophen (Tylenol Tab) 650 mg Q4H PRN PO MILD PAIN(1-3)OR ELEVATED TEMP Last administered on 07/30/18 21:11; Admin Dose 650 MG; Start 05/31/18 at 13:00 Clonidine (Catapres) 0.1 mg Q6H PRN PO ELEVATED BLOOD PRESSURE Last a dministered on 07/30/18at 20:59; Admin Dose 0.1 MG; Start 06/03/18 at 03:30 Bumetanide (Bumex) 1 mg BID DIURETICS GTB Last administered on 08/01/18 09:46; Admin Dose 1 MG; Start 06/11/18 at 18:00 Dicyclomine HCl (Bentyl) 20 mg Q8 PO Last administered on 08/01/18 05:54; Admin Dose 20 MG; Start 06/27/18 at 22:00 Cholestyramine Resin (Questran Light) 4 gm 0600,1200,1800,2300 GTB Last administered on 08/01/18 12:09; Admin Dose 4 GM; Start 06/27/18 at 18:00 Lorazepam (Ativan) 0.5 mg Q4 PRN IV ANXIETY Last administered on 07/29/18 20:47; Admin Dose 0.5 MG; Start 07/01/18 at 14:00 Metoprolol Tartrate (Lopressor) 50 mg Q8 GTB Last administered on 08/01/18 05:55; Admin Dose 50 MG; Start 07/05/18 at 22:00 Amikacin Sulfate (Amikacin Iv Per Pharmacy) 1 ea NOTE XX ; Start 07/09/18 at 17:30 Vancomycin HCl (Vancomycin Oral Syringe) 125 mg Q6 GTB Last administered on 08/01/18 12:09; Admin Dose 125 MG; Start 07/09/18 at 18:00 Epoetin Zen-epbx (Retacrit (Non-Esrd)) 10,000 unit MoWeFr@1700 SC Last administered on 07/31/18 17:38; Admin Dose 10,000 UNIT; Start 07/13/18 at 17:00 Cefepime HCl 50 ml @ 100 mls/hr Q24H IVPB Last administered on 07/31/18 17:39; Admin Dose 100 MLS/HR; Start 07/14/18 at 18:30 Albuterol/ Ipratropium (Duoneb) 3 ml Q2H RESP THERAPY PRN HHN WHEEZING Last administered on 07/21/18 23:06; Admin Dose 3 ML; Start 07/21/18 at 22:00 Amiodarone HCl (Cordarone) 200 mg BID GTB Last administered on 08/01/18 09:47; Admin Dose 200 MG; Start 07/22/18 at 21:00 Citric Acid/ Sodium Citrate (Bicitra) 60 ml DAILY PO Last administered on 08/01/18 09:46; Admin Dose 60 ML; Start 07/23/18 at 09:00 Amikacin Sulfate 400 mg/Dextrose 101.6 ml @ 101.6 mls/ hr Q5D IVPB Last adm inistered on 07/30/18at 23:17; Admin Dose 101.6 MLS/HR; Start 07/30/18 at 23:00 Levothyroxine Sodium (Synthroid) 75 mcg DAILY@06 GTB Last administered on 08/01/18at 05:54; Admin Dose 75 MCG; Start 07/28/18 at 06:00 Miscellaneous Information (*Order Clarification Bulletin) MEDICATION REQUIRES CLARIFICATI... Q8H XX ; Start 07/27/18 at 22:30 Nystatin (Nystatin Powder) 1 applic BID TOP Last administered on 08/01/18at 09:48; Admin Dose 1 APPLIC; Start 07/28/18 at 17:30 IV Flush (NS 10 ml) 10 ml Q8 PRN IV IV PROTOCOL; Start 07/28/18 at 19:00 Phenytoin (Dilantin) 200 mg Q12H IV Last administered on 08/01/18at 09:47; Admin Dose 200 MG; Start 07/29/18 at 20:00 Amlodipine Besylate (Norvasc) 2.5 mg BID PO Last administered on 08/01/18 09:46; Admin Dose 2.5 MG; Start 07/30/18 at 21:00 Miscellaneous Information (*Order Clarification Bulletin) MEDICATION REQUIRES CLARIFICATI... Q8H XX ; Start 07/31/18 at 14:30; Stop 08/02/18 at 23:00 ALIZE FLORES MD Aug 01, 2018 12:47
[2018-08-01] MEDS: CEFEPIME 2GM/50 ML (PMX) 50 ML IVPB SCH (18:11)
[2018-08-02] VITALS (24 sets, daily range): BP systolic 144–157; BP diastolic 70–95; PULSE 65–106; RESP 18–28
[2018-08-02] MEDS: VANCOMYCIN HCL 250 MG/5ML POSYG GTB SCH ×5 (00:30→23:05)
[2018-08-02] MEDS: DICYCLOMINE 10 MG CAP PO SCH ×3 (05:59→22:03)
[2018-08-02] MEDS: LEVOTHYROXINE 75 MCG TAB GTB SCH (05:59)
[2018-08-02] MEDS: BUMETANIDE 1 MG TAB GTB SCH ×2 (05:59→18:44)
[2018-08-02] MEDS: METOPROLOL 50 MG TAB GTB SCH ×3 (06:01→22:03)
[2018-08-02] MEDS: CHOLESTYRAMINE (LIGHT) 4 GM PACKET GTB SCH ×4 (06:10→23:06)
[2018-08-02] MEDS: AMIODARONE 200 MG TAB GTB SCH ×2 (09:14→20:22)
[2018-08-02] MEDS: PHENYTOIN 100 MG INJ IV SCH ×2 (09:15→20:23)
[2018-08-02] MEDS: MULTIVITAMINS 30 ML CUP GTB SCH (09:15)
[2018-08-02] MEDS: AMLODIPINE 2.5 MG TAB PO SCH ×2 (09:15→20:23)
[2018-08-02] MEDS: ZINC SULFATE 220 MG CAP GTB SCH (09:15)
[2018-08-02] MEDS: CITRIC ACID/NA CITRATE 30 ML CUP PO SCH (09:15)
[2018-08-02] MEDS: NYSTATIN 30 GM POWDER BTL TOP SCH ×2 (09:17→20:23)
[2018-08-02] MEDS: BALSAM PERU/CASTOR OIL 60 GM TUBE TOP SCH ×2 (09:18→20:23)
--- NOTE | 2018-08-02 09:32 | CONS ---
[facility] HCIS Consult Follow-up Patient Name: Zuly Mcwilliams Unit Number: [id number] Date of : 1945 Patient Status: Admitted Inpatient Attending Doctor: Roland Giron MD Edit: CELESTINE SANCHEZ M.D. on 08/03/18 @ 16:59 Daniel: I discussed the management with INFLATED [employer] MOLDER Merle and agree Assessment/Plan Assessment/Plan Hospital Course (Demo Recall) # sepsis, leukocytosis, SIRS, pulmonary, cardiac - recurrent leukocytosis due to bacteremia (below), improved - s/p septic shock due to pneumonia and C diff colitis - acute on chronic hypoxic respiratory failure, persistent - s/p reintubation 05/12/2018 - s/p re-do trach on 05/29/2018 - recurrent colonization of the anterior neck wound with ESBL+kleb, MRSA, GBS, corynebacteria on 05/06/2018 - h/o pneumonia vs. colonization of the airway by pseudomonas and ESBL +klebsiella - h/o possible, recurrent HCAP due to pseudomonas and ESBL+klebsiella - h/o recurrent HCAP due to MRSA and Enterobacter (culture of tracheal aspirate on 07/16/2017 that was collected at [facility]) . Pt took vancomycin and ceftazidime - h/o decannulation prior to admission - h/o tracheostomy on 06/11/2017 - h/o SIRS from UGIB in 2018 - h/o thoracentesis on 07/18/2017, transudative (protein <2, LDH 279) - h/o bleeding from the trach site in 2018 - h/o septic shock due to pneumonia, ARDS, bacteremia, fungemia in 2018 - h/o ARDS in 2018 - h/o smoking - COPD - h/o ILD per medical record - h/o PAF, improved - echodense structure in posterior leafleat region, differential includes calcification vs vegetation per 2D echo 07/15/2018 # GI - s/p possible ileus or enterocolitis on CT abd/pel 06/15/2018-->follow up CT on 07/15/2018 showed no evidence of urolithiasis, obstructive uropathy or divertic ulitis; it showed small to moderate ascites - C diff colitis, diagnosed on 05/11/2018. Pt is on pGT vancomycin (05/11/2018-); Pt previously took IV metronidazole (05/11/2018-05/29/2018; restart 05/30/2018- 06/05/18) too - Pt had multiple negative C. diff tests at [facility] and at OSH in the past; none was positive until 05/11/2018 - dysphagia - h/o PEG placement 06/13/2018 - protein calorie malnutrition - h/o coffee ground emesis/UGIB on 12/23/2017 due to deep ulceration of distal esophagus and gastritis on EGD 12/26/2017. No e/o H. pylori - h/o possible appendicitis on CT on 11/22/2017, Pt took ertapenem (11/24/2017- 12/01/2017) - h/o extensive adhesions lower abdominal and pelvis between small bowel to each other and to colon and to abdominal wall, anterior pelvic wall chronic abscess secondary to probably an old perforated diverticulitis, torsion of small bowel around these dense adhesion causing multiple obstructive points - h/o laparoscopic exploration and extensive lysis of adhesions and drainage of anterior pelvic wall abscess 09/16/2017. Cultures were negative, no e/o malignancy. Pt took pip/tazo (09/16/2017-09/26/2017) - h/o EGD and exchange of PEG on 09/01/2017 - h/o partial obstruction mid jejunum in L anterior central pelvis with suggestion of a 3 cm soft tissue mass on CT 08/28/2017 - h/o internal stomal deep ulcer behind the internal bumper, gastritis and esophagitis, Rodriguez's cannot be ruled out, per EGD with biopsy 07/23/2017 - h/o GIB s/p flex sig showed polyp; stool OB negative on 06/29/17 - h/o stool OB positive status - h/o SBO and ileus due to pain meds - h/o mildly elevated CEA # renal/ - s/p recurrent UTI due to pseudomonas (culture on 07/09/2018)-->Garza catheter was replaced on 07/14/2018 - s/p UTI due to MDR, CRE-klebsiella on 06/15/2018. S/p renally dosed amikacin f or klebsiella in her urine culture (06/17-06/22/2018) - s/p UTI due to pseudomonas and ESBL+klebsiella on 06/09/2018, Pt took one dose of fosfomycin on 06/10/2018 and cipro 06/12-06/15/2018 - anasarca - started on HD on 05/15/2018, via Juan in R groin - recurrent NATHAN on CKD - 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 Her strain of CRE was sensitive to colistin, Avycaz, and Vabomere but resistant to Zerbaxa (reported on 05/19/2018) - metabolic acidosis - adrenal insufficiency - h/o vaginal bleed in 2018 - h/o colonization of urinary tract by ESBL+klebsiella, VRE - h/o recurrent, symptomatic UTI due to carbapenem-resistant kleb (MDR strain) per urine culture 10/04/17, 10/09/17, 10/21/2017, P took colistin (10/09/2017- 10/15/2017), fosfomycin for carbapenemase-producing klebsiella and VRE on 10/25/2017 and 10/28/2017 - h/o funguria - h/o urinary retention # bloodstream infections - bacteremia d/t pseudomonas aeruginosa 07/09/18, 07/10/18, 07/11/18, 07/12/18, 07/13/18, 07/15/18, 07/17/18. This is associated with PICC because the blood culture from PICC and phlebotomy on 07/13/2018 both grew the same bacteria. The tip of PICC that was removed on 07/14/18 also grew the same bacteria in culture. Latest Pseudomonas from blood cx on 07/17/2018 susceptible to amikacin, gentamicin, tobramycin, colistin, and Zerbaxa (R to Avycaz) 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; Pt declined surgery for MVR per outside medical records; TTE 07/01/17 did not mention any thrombus; s/p voriconazole (05/25/2017-08/01/2017) - h/o bacteremia due to MSSA and proteus s/p ceftriaxone; repeat blood cultures were negative on 06/14/2017 - s/p RUE PICC line placement 07/28/2018 # musculoskeletal and dermatological - dry skin - chronic wound of LLE - h/o infection of wound of LLE - h/o debridement of wound of LLE on 08/06/2017 - h/o recurrent herpes labialis, Pt took acyclovir, valacyclovir - h/o Osler's nodes (eschar) of R toes with erythematous skin; desquamation of the skin and open lacerations on R plantar foot. improved. Probable manifestation of endocarditis. Pt declined MRI on 08/06/2017 - h/o infection of R toes due to pseudomonas. coagulase negative Staph likely a colonizer - h/o intertrigo of the groin, resolved with nystatin powder - h/o scabies, locally crusted lesion over L scapula, s/p permethrin cream and pGT ivermectin on 08/11/2017, 08/12/2017, 08/19/2017. Repeat skin scraping on 08/21/2017 was negative for scabies # psych, neuro - chronic toxic metabolic encephalopathy, progressing - MRI brain shows no acute intracranial pathology - seizure activity per EEG 07/27/18 - on Dilantin - decreased hearing b/l - h/o critical illness polyneuropathy - anxiety/depression, bipolar d/o, seen by Psychiatry in the past - chronic pain syndrome - h/o medical non-compliance: she would refuse her medications, treatment and straight catheterization in 2018 - complete opacification of the bilateral mastoid air cells per MRI Brain 07/27/2018 # hematological, vascular - chronic anemia requiring blood transfusion intermittently - macrocytic anemia - aneurysmal dilatation of the distal aorta visualized on CT 06/15/2018 - PVD # other - hypothyroidism with elevated TSH - on Synthroid Recommendations: - Continue amikacin IV (07/09/2018-). Pt had a strain of pseudomonas that was resistant to all except for aminoglycoside - Continue renally dosed cefepime (07/14/2018-); Pt needs double coverage because amikacin alone has not cleared her bacteremia. Some strains of pseudomonas she had were pansensitive while other strains of pseudomonas were resistant to many antibiotics (MDR). Most recent pseudomonas from was S to ami, gent, tobra, colistin, Zerbaxa (R to Avycaz) - Pt will require a prolonged course of abx given likely vegetation on 2D echo; plan for 6 weeks - Continue vancomycin pGT (07/09/18/ - ) while on IV abx d/t pt's h/o C. diff. Pt completed IV metronidazole (07/09/18-07/15/18) - We recommend bi monthly Audiology testing for this pt who will likely require long term care administrator aminoglycoside; - We recommend ENT consult to assess her hearing because she is on long term care administrator aminoglycoside. - Consider MARCIAL to r/o endocarditis so as to possibly limit pt's course of antibiotics/exposure to nephrotoxic agents. Although it may be difficult to distinguish between an old lesion vs a new lesion. - Monitor CrCl - Consider goals of continued aggressive care; overall prognosis appears poor especially in light of recent echo findings - Dr. Doyle d/w Pharmacy on 07/31/18 - We can obtain Zerbaxa if needed but patient seems to be responding to current modality of therapy. We will continue to monitor closely and consider switch to Zerbaxa monotherapy if renal function/audiology testing necessitates. - Monitor amikacin levels Plan was d/w Dr. Sanchez. Consultation Date/Type/Reason Admit Date/Time May 06, 2018 at 17:38 Initial Consult Date 05/07/18 Type of Consult ID Requesting Provider: ROLAND GIRON MD Date/Time of Note DATE: 08/02/18 TIME: 09:32 24 HR Interval Summary Free Text/Dictation The patient remains afebrile, no new labs today, no acute issues were reported by nursing. Exam/Review of Systems Exam Vitals Vital Signs Date Temp Pulse Resp B/P (MAP) Pulse Ox O2 O2 Flow FiO2 Time Delivery Rate 08/02/18 65 08:00 08/02/18 98.0 21 157/76 100 07:47 (103) 08/02/18 30 05:24 08/01/18 Mechanical 15:26 Ventilator Trach Collar Allergies Coded Allergies shellfish derived (Unverified Allergy, Unknown, 05/06/18) Intake and Output 08/01/18 08/01/18 08/02/18 1515:00 23:00 07:00 IntakeIntake Total 600 ml 680 ml OutputOutput Total 700 ml 850 ml BalanceBalance -100 ml -170 ml Exam Constitutional: well developed, frail, alert, other (chronically debilitated); Psych: other (flat affect, when I was speaking to the patient she would open her eyes with every sentance but then close them again) Head: normocephalic, atraumatic Eyes: nl conjunctiva, nl lids ENMT: nl external ears & nose, nl nasal mucosa & septum, other (unable to examine op, kept mouth closed) Neck: supple, non-tender, other (trach midline, site is c/d/i, on vent) Respiratory: normal air movement, diminished breath sounds (bilaterally, anteriorly) no: wheezing Cardiovascular: regular rate and rhythm, nl pulses, edema (generalized) Gastrointestinal: soft, non-tender (appears nontender, patient did not react when I palpated), bowel sounds (normoactive), other (PEG site is c/d/i) Genitourinary - Female: other (f/c draining yellow urine) Musculoskeletal: muscle weakness Extremities: normal pulses, edema, other (BLE foot drop) Neurological: lethargic (sleeping, opened eyes and closed them again during assessment), other (did not attempt to communicate nor follow commands.) Skin: ecchymosis, other (R foot wrapped with kerlix and c/d/i, L [place] with a c/d/i kerlix dressing in place.) Results Result Diagram: 08/01/18 0632 08/01/18 0632 Results 24hrs Laboratory Tests Test 08/02/18 06:09 Phenytoin (Dilantin) Level 10.7 Medications Medication Current Medications IV Flush (NS 10 ml) 10 ml PRN IV ; Start 05/06/18 at 20:30 Zinc Sulfate (Zinc Sulfate) 220 mg DAILY GTB Last administered on 08/02/18at 09:15; Admin Dose 220 MG; Start 05/07/18 at 09:00 Ondansetron HCl (Zofran Tab) 4 mg Q6H PRN GTB NAUSEA AND/OR VOMITING Last administered on 05/31/18 16:47; Admin Dose 4 MG; Start 05/07/18 at 00:15 Multivitamins (Multivitamin) 30 ml DAILY GTB Last administered on 08/02/18 09:15; Admin Dose 30 ML; Start 05/07/18 at 09:00 [facility]isc[facility] This patient goldman... PRN PRN XX WOUND CARE; Start 05/09/18 at 17:00 Acetaminophen (Tylenol Tab) 650 mg Q4H PRN PO MILD PAIN(1-3)OR ELEVATED TEMP Last administered on 07/30/18 21:11; Admin Dose 650 MG; Start 05/31/18 at 13:00 Clonidine (Catapres) 0.1 mg Q6H PRN PO ELEVATED BLOOD PRESSURE Last administered on 07/30/18 20:59; Admin Dose 0.1 MG; Start 06/03/18 at 03:30 Bumetanide (Bumex) 1 mg BID DIURETICS GTB Last administered on 08/02/18 05:59; Admin Dose 1 MG; Start 06/11/18 at 18:00 Dicyclomine HCl (Bentyl) 20 mg Q8 PO Last administered on 08/02/18 05:59; Admin Dose 20 MG; Start 06/27/18 at 22:00 Cholestyramine Resin (Questran Light) 4 gm 0600,1200,1800,2300 GTB Last administered on 08/02/18 06:10; Admin Dose 4 GM; Start 06/27/18 at 18:00 Lorazepam (Ativan) 0.5 mg Q4 PRN IV ANXIETY Last administered on 07/29/18 20:47; Admin Dose 0.5 MG; Start 07/01/18 at 14:00 Metoprolol Tartrate (Lopressor) 50 mg Q8 GTB Last administered on 08/02/18 06:01; Admin Dose 50 MG; Start 07/05/18 at 22:00 Amikacin Sulfate (Amikacin Iv Per Pharmacy) 1 ea NOTE XX ; Start 07/09/18 at 17:30 Vancomycin HCl (Vancomycin Oral Syringe) 125 mg Q6 GTB Last administered on 08/02/18 06:10; Admin Dose 125 MG; Start 07/09/18 at 18:00 Epoetin Zen-epbx (Retacrit (Non-Esrd)) 10,000 unit MoWeFr@1700 SC Last administered on 07/31/18 17:38; Admin Dose 10,000 UNIT; Start 07/13/18 at 17:00 Cefepime HCl 50 ml @ 100 mls/hr Q24H IVPB Last administered on 08/01/18 18:11; Admin Dose 100 MLS/HR; Start 07/14/18 at 18:30 Albuterol/ Ipratropium (Duoneb) 3 ml Q2H RESP THERAPY PRN HHN WHEEZING Last administered on 07/21/18 23:06; Admin Dose 3 ML; Start 07/21/18 at 22:00 Amiodarone HCl (Cordarone) 200 mg BID GTB Last administered on 08/02/18 09:14; Admin Dose 200 MG; Start 07/22/18 at 21:00 Citric Acid/ Sodium Citrate (Bicitra) 60 ml DAILY PO Last administered on 08/02/18 09:15; Admin Dose 60 ML; Start 07/23/18 at 09:00 Amikacin Sulfate 400 mg/Dextrose 101.6 ml @ 101.6 mls/ hr Q5D IVPB Last administered on 07/30/18 23:17; Admin Dose 101.6 MLS/HR; Start 07/30/18 at 23:00 Levothyroxine Sodium (Synthroid) 75 mcg DAILY@06 GTB Last administered on 08/02/18at 05:59; Admin Dose 75 MCG; Start 07/28/18 at 06:00 Miscellaneous Information (*Order Clarification Bulletin) MEDICATION REQUIRES CLARIFICATI... Q8H XX ; Start 07/27/18 at 22:30 Nystatin (Nystatin Powder) 1 applic BID TOP Last administered on 08/02/18 09:17; Admin Dose 1 APPLIC; Start 07/28/18 at 17:30 IV Flush (NS 10 ml) 10 ml Q8 PRN IV IV PROTOCOL; Start 07/28/18 at 19:00 Phenytoin (Dilantin) 200 mg Q12H IV Last administered on 08/02/18 09:15; Admin Dose 200 MG; Start 07/29/18 at 20:00 Amlodipine Besylate (Norvasc) 2.5 mg BID PO Last administered on 08/02/18at 09:15; Admin Dose 2.5 MG; Start 07/30/18 at 21:00 Miscellaneous Information (*Order Clarification Bulletin) MEDICATION REQUIRES CLARIFICATI... Q8H XX ; Start 07/31/18 at 14:30; Stop 08/02/18 at 23:00 KENA MÉNDEZ NP Aug 02, 2018 09:32
--- NOTE | 2018-08-02 10:57 | PN ---
Date/Time of Note Date/Time of Note DATE: 08/02/18 TIME: 10:56 Assessment/Plan VTE Prophylaxis Risk score (from Ns)>0 risk: 11 SCD applied (from Ns): Yes Pharmacological prophylaxis: LMWH Lines/Catheters IV Catheter Type (from Nrsg): PICC Line Central line still needed: Yes Urinary Cath still in place: Yes Reason Cath still needed: skin wounds contaminated by urine Assessment/Plan Hospital Course -Possible acute metabolic encephalopathy. Dr. Mathew is following in neurology consultation. -Seizures, continue Dilantin -Persistent leukocytosis with Pseudomonas bacteremia 2 to PICC line infection, continue antibiotics per ID. Dr. Doyle is following in infection disease consultation. 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 TTE 07/16/18 with notion of echodense structure on the mitral valve, calcification vs vegetation. Dr. Scanlon is fo llowing in cardiology consultation. Patient needs IV cefepime and amikacin for treatment of bacteremia and presumed endocarditis for 5 weeks until 08/22/2018 per ID recommendations. -Hypothyroidism, continue levothyroxine. -MDR Klebsiella urinary tract infection, completed treatment with amikacin. -Atrial fibrillation was rapid ventricular response, patient remains in sinus rh ythm continue metoprolol and amiodarone. -S/p septic shock secondary to urinary tract infection, anterior neck soft tissue infection, and C. difficile colitis. -C-diff colitis,resolved. -Acute respiratory failure requiring intubation and ventilatory support. Dr. Lambert is following in pulmonology consultation. -S/p tracheostomy on 05/29/18. -Acute kidney injury on chronic kidney disease. Started on HD this admission with recovery of renal function. Dr. Mckeon is following in nephrology consultation. -Anemia of chronic inflammation, stool for OB is negative, status post blood transfusion. Continue Epogen. -Metabolic acidosis, resolved. -Acute diastolic congestive heart failure. -Paroxysmal atrial fibrillation -COPD -Dysphagia with PEG. -G-tube mild malfunction, changed by GI Dr. Carolina is following in gastroenterology consultation. -Obesity -Critical care myopathy Result Diagram: 08/01/18 0632 08/01/18 0632 Results 24hrs Laboratory Tests Test 08/02/18 06:09 Phenytoin (Dilantin) Level 10.7 Subjective 24 Hr Interval Summary Free Text/Dictation Patient resting comfortably, on vent via trach Exam/Review of Systems Exam Vitals Vital Signs Date Temp Pulse Resp B/P (MAP) Pulse Ox O2 O2 Flow FiO2 Time Delivery Rate 08/02/18 65 08:00 08/02/18 98.0 21 157/76 100 07:47 (103) 08/02/18 30 05:24 08/01/18 Mechanical 15:26 Ventilator Trach Collar Intake and Output 08/01/18 08/01/18 08/02/18 1515:00 23:00 07:00 IntakeIntake Total 600 ml 680 ml OutputOutput Total 700 ml 850 ml BalanceBalance -100 ml -170 ml Constitutional: well developed Head: normocephalic, atraumatic Neck: supple Respiratory: diminished breath sounds Cardiovascular: regular rate and rhythm Gastrointestinal: soft, non-tender Extremities: normal pulses Results Results 24hrs Laboratory Tests Test 08/02/18 06:09 Phenytoin (Dilantin) Level 10.7 Medications Medication Current Medications IV Flush (NS 10 ml) 10 ml PRN IV ; Start 05/06/18 at 20:30 Zinc Sulfate (Zinc Sulfate) 220 mg DAILY GTB Last administered on 08/02/18at 09:15; Admin Dose 220 MG; Start 05/07/18 at 09:00 Ondansetron HCl (Zofran Tab) 4 mg Q6H PRN GTB NAUSEA AND/OR VOMITING Last administered on 05/31/18at 16:47; Admin Dose 4 MG; Start 05/07/18 at 00:15 Multivitamins (Multivitamin) 30 ml DAILY GTB Last administered on 08/02/18at 09:15; Admin Dose 30 ML; Start 05/07/18 at 09:00 Miscellaneous Information (Pending [facility] Order For Wound Care) This patient goldman... PRN PRN XX WOUND CARE; Start 05/09/18 at 17:00 Acetaminophen (Tylenol Tab) 650 mg Q4H PRN PO MILD PAIN(1-3)OR ELEVATED TEMP Last administered on 07/30/18at 21:11; Admin Dose 650 MG; Start 05/31/18 at 13:00 Clonidine (Catapres) 0.1 mg Q6H PRN PO ELEVATED BLOOD PRESSURE Last administered on 07/30/18at 20:59; Admin Dose 0.1 MG; Start 06/03/18 at 03:30 Bumetanide (Bumex) 1 mg BID DIURETICS GTB Last administered on 08/02/18 05:59; Admin Dose 1 MG; Start 06/11/18 at 18:00 Dicyclomine HCl (Bentyl) 20 mg Q8 PO Last administered on 08/02/18 05:59; Admin Dose 20 MG; Start 06/27/18 at 22:00 Cholestyramine Resin (Questran Light) 4 gm 0600,1200,1800,2300 GTB Last administered on 08/02/18 06:10; Admin Dose 4 GM; Start 06/27/18 at 18:00 Lorazepam (Ativan) 0.5 mg Q4 PRN IV ANXIETY Last administered on 07/29/18 20:47; Admin Dose 0.5 MG; Start 07/01/18 at 14:00 Metoprolol Tartrate (Lopressor) 50 mg Q8 GTB Last administered on 08/02/18 06:01; Admin Dose 50 MG; Start 07/05/18 at 22:00 Amikacin Sulfate (Amikacin Iv Per Pharmacy) 1 ea NOTE XX ; Start 07/09/18 at 17:30 Vancomycin HCl (Vancomycin Oral Syringe) 125 mg Q6 GTB Last administered on 08/02/18 06:10; Admin Dose 125 MG; Start 07/09/18 at 18:00 Epoetin Zen-epbx (Retacrit (Non-Esrd)) 10,000 unit MoWeFr@1700 SC Last administered on 07/31/18 17:38; Admin Dose 10,000 UNIT; Start 07/13/18 at 17:00 Cefepime HCl 50 ml @ 100 mls/hr Q24H IVPB Last administered on 08/01/18 18:11; Admin Dose 100 MLS/HR; Start 07/14/18 at 18:30 Albuterol/ Ipratropium (Duoneb) 3 ml Q2H RESP THERAPY PRN HHN WHEEZING Last administered on 07/21/18 23:06; Admin Dose 3 ML; Start 07/21/18 at 22:00 Amiodarone HCl (Cordarone) 200 mg BID GTB Last administered on 08/02/18 09:14; Admin Dose 200 MG; Start 07/22/18 at 21:00 Citric Acid/ Sodium Citrate (Bicitra) 60 ml DAILY PO Last administered on 08/02/18 09:15; Admin Dose 60 ML; Start 07/23/18 at 09:00 Amikacin Sulfate 400 mg/Dextrose 101.6 ml @ 101.6 mls/ hr Q5D IVPB Last administered on 07/30/18at 23:17; Admin Dose 101.6 MLS/HR; Start 07/30/18 at 2 3:00 Levothyroxine Sodium (Synthroid) 75 mcg DAILY@06 GTB Last administered on 08/02/18at 05:59; Admin Dose 75 MCG; Start 07/28/18 at 06:00 Miscellaneous Information (*Order Clarification Bulletin) MEDICATION REQUIRES CLARIFICATI... Q8H XX ; Start 07/27/18 at 22:30 Nystatin (Nystatin Powder) 1 applic BID TOP Last administered on 08/02/18at 09:17; Admin Dose 1 APPLIC; Start 07/28/18 at 17:30 IV Flush (NS 10 ml) 10 ml Q8 PRN IV IV PROTOCOL; Start 07/28/18 at 19:00 Phenytoin (Dilantin) 200 mg Q12H IV Last administered on 08/02/18at 09:15; Admin Dose 200 MG; Start 07/29/18 at 20:00 Amlodipine Besylate (Norvasc) 2.5 mg BID PO Last administered on 08/02/18 09:15; Admin Dose 2.5 MG; Start 07/30/18 at 21:00 Miscellaneous Information (*Order Clarification Bulletin) MEDICATION REQUIRES CLARIFICATI... Q8H XX ; Start 07/31/18 at 14:30; Stop 08/02/18 at 23:00 STEPHANIE BAL Aug 02, 2018 10:57
--- NOTE | 2018-08-02 11:02 | CONS ---
Consultation Date/Type/Reason Admit Date/Time May 06, 2018 at 17:38 Initial Consult Date 05/10/18 Type of Consult Cardiology Requesting Provider: ROLAND GIRON MD Date/Time of Note DATE: 08/02/18 TIME: 11:01 24 HR Interval Summary Free Text/Dictation Septic as well as hemorrhagic shock, improving Acute respiratory failure status post intubation and repeat tracheostomy Acute blood loss anemia History of respiratory failure status post decannulation Preserved ejection fraction echocardiogram 05/10/2018 Paroxysmal atrial fibrillation Acute kidney injury Presumed mitral valve endocarditis -Antibiotics as per infectious disease -Blood pressure trend improved after restarting amlodipine. Continue with holding parameters -Patient with paroxysmal atrial fibrillation, currently in sinus rhythm -Continue amiodarone - consider decreasing to once daily -Vent management as per pulmonary -Fluid management and electrolytes as per renal -No anticoagulation given recurrent anemia requiring blood transfusions Exam/Review of Systems Vital Signs Vitals Vital Signs Date Temp Pulse Resp B/P (MAP) Pulse Ox O2 O2 Flow FiO2 Time Delivery Rate 08/02/18 65 08:00 08/02/18 98.0 21 157/76 100 07:47 (103) 08/02/18 30 05:24 08/01/18 Mechanical 15:26 Ventilator Trach Collar Intake and Output 08/01/18 08/01/18 08/02/18 1515:00 23:00 07:00 IntakeIntake Total 600 ml 680 ml OutputOutput Total 700 ml 850 ml BalanceBalance -100 ml -170 ml Exam Exam gen nad cv rrr pulm ctab abd soft, nd, nt +bs ext: no edema Labs Result Diagram: 08/01/18 0632 08/01/18 0632 Results 24hrs Laboratory Tests Test 08/02/18 06:09 Phenytoin (Dilantin) Level 10.7 Medications Medications Current Medications IV Flush (NS 10 ml) 10 ml PRN IV ; Start 05/06/18 at 20:30 Zinc Sulfate (Zinc Sulfate) 220 mg DAILY GTB Last administered on 08/02/18at 09:15; Admin Dose 220 MG; Start 05/07/18 at 09:00 Ondansetron HCl (Zofran Tab) 4 mg Q6H PRN GTB NAUSEA AND/OR VOMITING Last administered on 05/31/18at 16:47; Admin Dose 4 MG; Start 05/07/18 at 00:15 Multivitamins (Multivitamin) 30 ml DAILY GTB Last administered on 08/02/18 09:15; Admin Dose 30 ML; Start 05/07/18 at 09:00 Miscellaneous Information (Pending Santyl Order For Wound Care) This patient goldman... PRN PRN XX WOUND CARE; Start 05/09/18 at 17:00 Acetaminophen (Tylenol Tab) 650 mg Q4H PRN PO MILD PAIN(1-3)OR ELEVATED TEMP Last administered on 07/30/18 21:11; Admin Dose 650 MG; Start 05/31/18 at 13:00 Clonidine (Catapres) 0.1 mg Q6H PRN PO ELEVATED BLOOD PRESSURE Last administered on 07/30/18 20:59; Admin Dose 0.1 MG; Start 06/03/18 at 03:30 Bumetanide (Bumex) 1 mg BID DIURETICS GTB Last administered on 08/02/18 05:59; Admin Dose 1 MG; Start 06/11/18 at 18:00 Dicyclomine HCl (Bentyl) 20 mg Q8 PO Last administered on 08/02/18 05:59; Admin Dose 20 MG; Start 06/27/18 at 22:00 Cholestyramine Resin (Questran Light) 4 gm 0600,1200,1800,2300 GTB Last administered on 08/02/18 06:10; Admin Dose 4 GM; Start 06/27/18 at 18:00 Lorazepam (Ativan) 0.5 mg Q4 PRN IV ANXIETY Last administered on 07/29/18at 20:47; Admin Dose 0.5 MG; Start 07/01/18 at 14:00 Metoprolol Tartrate (Lopressor) 50 mg Q8 GTB Last administered on 08/02/18 06:01; Admin Dose 50 MG; Start 07/05/18 at 22:00 Amikacin Sulfate (Amikacin Iv Per Pharmacy) 1 ea NOTE XX ; Start 07/09/18 at 17:30 Vancomycin HCl (Vancomycin Oral Syringe) 125 mg Q6 GTB Last administered on 08/02/18 06:10; Admin Dose 125 MG; Start 07/09/18 at 18:00 Epoetin Zen-epbx (Retacrit (Non-Esrd)) 10,000 unit MoWeFr@1700 SC Last administered on 07/31/18 17:38; Admin Dose 10,000 UNIT; Start 07/13/18 at 17:00 Cefepime HCl 50 ml @ 100 mls/hr Q24H IVPB Last administered on 08/01/18 18:11; Admin Dose 100 MLS/HR; Start 07/14/18 at 18:30 Albuterol/ Ipratropium (Duoneb) 3 ml Q2H RESP THERAPY PRN HHN WHEEZING Last administered on 07/21/18 23:06; Admin Dose 3 ML; Start 07/21/18 at 22:00 Amiodarone HCl (Cordarone) 200 mg BID GTB Last administered on 08/02/18 09:14; Admin Dose 200 MG; Start 07/22/18 at 21:00 Citric Acid/ Sodium Citrate (Bicitra) 60 ml DAILY PO Last administered on 08/02/18 09:15; Admin Dose 60 ML; Start 07/23/18 at 09:00 Amikacin Sulfate 400 mg/Dextrose 101.6 ml @ 101.6 mls/ hr Q5D IVPB Last administered on 07/30/18 23:17; Admin Dose 101.6 MLS/HR; Start 07/30/18 at 23:00 Levothyroxine Sodium (Synthroid) 75 mcg DAILY@06 GTB Last administered on 05:59; Admin Dose 75 MCG; Start 07/28/18 at 06:00 Miscellaneous Information (*Order Clarification Bulletin) MEDICATION REQUIRES CLARIFICATI... Q8H XX ; Start 07/27/18 at 22:30 Nystatin (Nystatin Powder) 1 applic BID TOP Last administered on 08/02/18 09:17; Admin Dose 1 APPLIC; Start 07/28/18 at 17:30 IV Flush (NS 10 ml) 10 ml Q8 PRN IV IV PROTOCOL; Start 07/28/18 at 19:00 Phenytoin (Dilantin) 200 mg Q12H IV Last administered on 08/02/18 09:15; Admin Dose 200 MG; Start 07/29/18 at 20:00 Amlodipine Besylate (Norvasc) 2.5 mg BID PO Last administered on 08/02/18 09:15; Admin Dose 2.5 MG; Start 07/30/18 at 21:00 Miscellaneous Information (*Order Clarification Bulletin) MEDICATION REQUIRES CLARIFICATI... Q8H XX ; Start 07/31/18 at 14:30; Stop 08/02/18 at 23:00 KARYN DAVILA MD Aug 02, 2018 11:02
--- NOTE | 2018-08-02 13:02 | CONS ---
Assessment/Plan Assessment/Plan Hospital Course (Demo Recall) 1. Nonoliguric acute kidney injury with previous baseline creatinine of 2.0 mg/dL. Etiology of acute kidney injury is secondary to acute tubular necrosis. The patient is status post hemodialysis. The patient's renal function has improved and appears to have stabilized around a creatinine of 2.0 to 2.5 mg/dL. At this point, continue current treatment plan, supportive care, renally dose a ll medications, no immediate need to resume hemodialysis. 2. Volume overload. Etiology is secondary to diastolic heart failure, chronic kidney disease. Continue Bumex and monitor I's and O's, electrolytes and renal function closely. 3. Anemia. Continue to monitor hemoglobin and hematocrit levels. 4. Mineral bone disorder, monitor calcium and phosphorus levels. 5. Ventilator-dependent respiratory failure. Vent settings and ABG has been reviewed. Continue to monitor. 6. Sepsis, endocarditis. The patient is completing antibiotic course. 7. Status post Clostridium difficile. 8. Dysphagia. Continue tube feeding. 9. Encephalopathy, etiology is toxic metabolic, possible uremic. Continue to monitor. 10. Lower extremity wounds. Continue wound care. Consultation Date/Type/Reason Admit Date/Time May 06, 2018 at 17:38 Initial Consult Date 05/10/18 Requesting Provider: ROLAND GIRON MD Date/Time of Note DATE: 08/02/18 TIME: 13:01 24 HR Interval Summary Free Text/Dictation no n/v. adequate urine output no fever d/w rn gen nad cv rrr pulm ctab abd soft, nd, nt +bs ext: no edema Exam/Review of Systems Exam Vitals Vital Signs Date Temp Pulse Resp B/P (MAP) Pulse Ox O2 O2 Flow FiO2 Time Delivery Rate 08/02/18 69 12:00 08/02/18 98.0 22 144/79 100 11:54 (100) 08/02/18 30 08:00 08/01/18 Mechanical 15:26 Ventilator Trach Collar Intake and Output 08/01/18 08/01/18 08/02/18 1515:00 23:00 07:00 IntakeIntake Total 600 ml 680 ml OutputOutput Total 700 ml 850 ml BalanceBalance -100 ml -170 ml Results Result Diagram: 08/01/18 0632 08/01/18 0632 Results 24hrs Laboratory Tests Test 08/02/18 06:09 Phenytoin (Dilantin) Level 10.7 Medications Medication Current Medications IV Flush (NS 10 ml) 10 ml PRN IV ; Start 05/06/18 at 20:30 Zinc Sulfate (Zinc Sulfate) 220 mg DAILY GTB Last administered on 08/02/18 09:15; Admin Dose 220 MG; Start 05/07/18 at 09:00 Ondansetron HCl (Zofran Tab) 4 mg Q6H PRN GTB NAUSEA AND/OR VOMITING Last administered on 05/31/18 16:47; Admin Dose 4 MG; Start 05/07/18 at 00:15 Multivitamins (Multivitamin) 30 ml DAILY GTB Last administered on 08/02/18 09:15; Admin Dose 30 ML; Start 05/07/18 at 09:00 Miscellaneous Information ([facility] This patient goldman... PRN PRN XX WOUND CARE; Start 05/09/18 at 17:00 Acetaminophen (Tylenol Tab) 650 mg Q4H PRN PO MILD PAIN(1-3)OR ELEVATED TEMP Last administered on 07/30/18 21:11; Admin Dose 650 MG; Start 05/31/18 at 13:00 Clonidine (Catapres) 0.1 mg Q6H PRN PO ELEVATED BLOOD PRESSURE Last administered on 07/30/18 20:59; Admin Dose 0.1 MG; Start 06/03/18 at 03:30 Bumetanide (Bumex) 1 mg BID DIURETICS GTB Last administered on 08/02/18 05:59; Admin Dose 1 MG; Start 06/11/18 at 18:00 Dicyclomine HCl (Bentyl) 20 mg Q8 PO Last administered on 08/02/18 05:59; Admin Dose 20 MG; Start 06/27/18 at 22:00 Cholestyramine Resin (Questran Light) 4 gm 0600,1200,1800,2300 GTB Last administered on 08/02/18 11:39; Admin Dose 4 GM; Start 06/27/18 at 18:00 Lorazepam (Ativan) 0.5 mg Q4 PRN IV ANXIETY Last administered on 07/29/18 20:47; Admin Dose 0.5 MG; Start 07/01/18 at 14:00 Metoprolol Tartrate (Lopressor) 50 mg Q8 GTB Last administered on 08/02/18 06:01; Admin Dose 50 MG; Start 07/05/18 at 22:00 Amikacin Sulfate (Amikacin Iv Per Pharmacy) 1 ea NOTE XX ; Start 07/09/18 at 17:30 Vancomycin HCl (Vancomycin Oral Syringe) 125 mg Q6 GTB Last administered on 08/02/18at 11:39; Admin Dose 125 MG; Start 07/09/18 at 18:00 Epoetin Zen-epbx (Retacrit (Non-Esrd)) 10,000 unit MoWeFr@1700 SC Last administered on 07/31/18 17:38; Admin Dose 10,000 UNIT; Start 07/13/18 at 17:00 Cefepime HCl 50 ml @ 100 mls/hr Q24H IVPB Last administered on 08/01/18 18:11; Admin Dose 100 MLS/HR; Start 07/14/18 at 18:30 Albuterol/ Ipratropium (Duoneb) 3 ml Q2H RESP THERAPY PRN HHN WHEEZING Last ad ministered on 07/21/18at 23:06; Admin Dose 3 ML; Start 07/21/18 at 22:00 Amiodarone HCl (Cordarone) 200 mg BID GTB Last administered on 08/02/18at 09:14; Admin Dose 200 MG; Start 07/22/18 at 21:00 Citric Acid/ Sodium Citrate (Bicitra) 60 ml DAILY PO Last administered on 08/02/18at 09:15; Admin Dose 60 ML; Start 07/23/18 at 09:00 Amikacin Sulfate 400 mg/Dextrose 101.6 ml @ 101.6 mls/ hr Q5D IVPB Last administered on 07/30/18 23:17; Admin Dose 101.6 MLS/HR; Start 07/30/18 at 23:00 Levothyroxine Sodium (Synthroid) 75 mcg DAILY@06 GTB Last administered on 08/02/18at 05:59; Admin Dose 75 MCG; Start 07/28/18 at 06:00 Miscellaneous Information (*Order Clarification Bulletin) MEDICATION REQUIRES CLARIFICATI... Q8H XX ; Start 07/27/18 at 22:30 Nystatin (Nystatin Powder) 1 applic BID TOP Last administered on 08/02/18at 09:17; Admin Dose 1 APPLIC; Start 07/28/18 at 17:30 IV Flush (NS 10 ml) 10 ml Q8 PRN IV IV PROTOCOL; Start 07/28/18 at 19:00 Phenytoin (Dilantin) 200 mg Q12H IV Last administered on 08/02/18at 09:15; Admin Dose 200 MG; Start 07/29/18 at 20:00 Amlodipine Besylate (Norvasc) 2.5 mg BID PO Last administered on 08/02/18at 09:15; Admin Dose 2.5 MG; Start 07/30/18 at 21:00 Miscellaneous Information (*Order Clarification Bulletin) MEDICATION REQUIRES CLARIFICATI... Q8H XX ; Start 07/31/18 at 14:30; Stop 08/02/18 at 23:00 ALIZE FLORES MD Aug 02, 2018 13:02
[2018-08-02] MEDS ORDERED: LORAZEPAM 2 MG INJ IV PRN (15:00)
[2018-08-02] MEDS: CEFEPIME 2GM/50 ML (PMX) 50 ML IVPB SCH (18:44)
[2018-08-02] MEDS: ACETAMINOPHEN 325 MG TAB PO PRN (20:22)
[2018-08-03] VITALS (21 sets, daily range): BP systolic 141–165; BP diastolic 73–97; PULSE 63–100; RESP 18–27
[2018-08-03] MEDS: DICYCLOMINE 10 MG CAP PO SCH ×3 (05:13→21:41)
[2018-08-03] MEDS: BUMETANIDE 1 MG TAB GTB SCH ×2 (05:13→17:53)
[2018-08-03] MEDS: LEVOTHYROXINE 75 MCG TAB GTB SCH (05:14)
[2018-08-03] MEDS: CHOLESTYRAMINE (LIGHT) 4 GM PACKET GTB SCH ×4 (05:14→23:29)
[2018-08-03] MEDS: METOPROLOL 50 MG TAB GTB SCH ×3 (05:14→21:41)
[2018-08-03] MEDS: VANCOMYCIN HCL 250 MG/5ML POSYG GTB SCH ×4 (05:17→23:29)
[2018-08-03] MEDS ORDERED: POTASSIUM CHLORIDE 20 MEQ POWDER FOR ORAL SOLN GTB ONE (08:30)
--- NOTE | 2018-08-03 08:56 | PN ---
DATE: 08/03/2018 SUBJECTIVE: The patient is stable, no events overnight. OBJECTIVE: VITAL SIGNS: Blood pressure is 148/87, respiration 18, pulse 71, temperature 98.6. HEENT: Head is normocephalic. NECK: Supple. HEART: Regular rate. LUNGS: Show diminished breath sounds at the base. ABDOMEN: Soft, nontender to palpation without rebound or guarding. EXTREMITIES: Negative for clubbing, cyanosis, positive edema. DERMATOLOGIC: No rashes. MUSCULOSKELETAL: No joint effusions. NEUROLOGIC: No change in exam. MEDICATIONS: The patient's medications have been reviewed. LABORATORY DATA: Has been reviewed. ASSESSMENT AND PLAN: 1. Nonoliguric acute kidney injury with previous baseline creatinine 2.0 mg/dL. Etiology of acute k idney injury is secondary to acute tubular necrosis. The patient is status post hemodialysis. The p atient's renal function has improved, appears to be stabilizing around a creatinine of 2.0 to 2.5 mg/ dL. At this point, continue current treatment plan, supportive care, renally dose all meds, no immed iate need to resume hemodialysis. 2. Volume overload secondary to diastolic heart failure, chronic kidney disease. Continue Bumex. M onitor I's and O's, electrolytes and renal function closely. 3. Anemia. Continue to monitor hemoglobin and hematocrit levels. Give Epogen as needed. 4. Mineral bone disorder, monitor calcium and phosphorus levels. 5. Ventilatory dependent respiratory failure. Vent settings and ABG was reviewed. Continue to luis e tor. 6. Sepsis, endocarditis. The patient is completing antibiotic course. 7. Status post diff. 8. Dysphagia. Continue tube feeding. 9. Encephalopathy, etiology is toxic metabolic, questionable uremic. Continue to monitor. 10. Lower extremity wounds. Continue wound care. 11. Hypokalemia. Will replete with potassium chloride. Dictated By: JEANA BANSAL DO NR/NTS Conf#: [id number] DID#: [id number] CC: ROLAND GIRON MD;*EndCC*
[2018-08-03] MEDS: MULTIVITAMINS 30 ML CUP GTB SCH (08:58)
[2018-08-03] MEDS: CITRIC ACID/NA CITRATE 30 ML CUP PO SCH (08:58)
[2018-08-03] MEDS: AMIODARONE 200 MG TAB GTB SCH ×2 (08:59→20:27)
[2018-08-03] MEDS: ZINC SULFATE 220 MG CAP GTB SCH (08:59)
[2018-08-03] MEDS: AMLODIPINE 2.5 MG TAB PO SCH ×2 (08:59→20:27)
[2018-08-03] MEDS: PHENYTOIN 100 MG INJ IV SCH ×2 (09:00→20:27)
[2018-08-03] MEDS: BALSAM PERU/CASTOR OIL 60 GM TUBE TOP SCH ×2 (09:02→20:28)
[2018-08-03] MEDS: NYSTATIN 30 GM POWDER BTL TOP SCH ×2 (09:02→20:28)
--- NOTE | 2018-08-03 13:47 | PN ---
Date/Time of Note Date/Time of Note DATE: 08/03/18 TIME: 13:36 Assessment/Plan VTE Prophylaxis Risk score (from Ns)>0 risk: 10 SCD applied (from [facility] [place]): Yes Pharmacological prophylaxis: NA/contraindicated Pharm contraindication: anticoag not tolerated Lines/Catheters IV C[facility]ter Type (from [facility] PICC Line Central line still needed: Yes Urinary Cath still in place: Yes Reason Cath still needed: urinary retention Assessment/Plan Hospital Course No acute events overnight, patient continues on ventilator support, K replaced. Pending placement. Assessment/Plan -Possible acute metabolic encephalopathy. Dr. Mathew is following in neurology consultation. -Seizures, continue Dilantin -Persistent leukocytosis with Pseudomonas bacteremia 2 to PICC line infection, continue antibiotics per ID. Dr. Doyle is following in infection disease consultation. 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 TTE 07/16/18 with notion of echodense structure on the mitral valve, calcification vs vegetation. Dr. Scanlon is following in cardiology consultation. Patient needs IV cefepime and amikacin for treatment of bacteremia and presumed endocarditis for 5 weeks until 08/22/2018 per ID recommendations. -Hypothyroidism, continue levothyroxine. -MDR Klebsiella urinary tract infection, completed treatment with amikacin. -Atrial fibrillation was rapid ventricular response, patient remains in sinus rhythm continue metoprolol and amiodarone. -S/p septic shock secondary to urinary tract infection, anterior neck soft tissue infection, and C. difficile colitis. -C-diff colitis,resolved. -Acute respiratory failure requiring intubation and ventilatory support. Dr. Lambert is following in pulmonology consultation. -S/p tracheostomy on 05/29/18. -Acute kidney injury on chronic kidney disease. Started on HD this admission with recovery of renal function. Dr. Mckeon is following in nephrology consultation. -Anemia of chronic inflammation, stool for OB is negative, status post blood transfusion. Continue Epogen. -Metabolic acidosis, resolved. -Acute diastolic congestive heart failure. -Paroxysmal atrial fibrillation -COPD -Dysphagia with PEG. -G-tube mild malfunction, changed by GI Dr. Carolina is following in gastroenterology consultation. -Obesity -Critical care myopathy Further recommendations based on clinical course. Plan of care discussed with Dr. Eisenberg. Result Diagram: 08/03/18 0634 08/03/18 0634 Results 24hrs Laboratory Tests Test 08/03/18 06:34 White Blood Count 9.5 Red Blood Count 2.70 L Hemoglobin 9.1 L Hematocrit 30.2 L Mean Corpuscular Volume 111.9 H Mean Corpuscular Hemoglobin 33.7 H Mean Corpuscular Hemoglobin Concent 30.1 L Red Cell Distribution Width 23.8 H Platelet Count 170 Mean Platelet Volume 11.0 H Immature Granulocytes % 0.300 Neutrophils % 78.6 H Lymphocytes % 9.0 L Monocytes % 6.9 Eosinophils % 4.8 Basophils % 0.4 Nucleated Red Blood Cells % 0.2 H Immature Granulocytes # 0.030 Neutrophils # 7.4 Lymphocytes # 0.9 Monocytes # 0.7 Eosinophils # 0.5 Basophils # 0.0 Nucleated Red Blood Cells # 0.0 Sodium Level 139 Potassium Level 3.3 L Chloride Level 106 Carbon Dioxide Level 22 Anion Gap 11 Blood Urea Nitrogen 98 H Creatinine 2.39 H Est Glomerular Filtrat Rate mL/min Glucose Level 124 Calcium Level 9.5 Phenytoin (Dilantin) Level 9.1 L Exam/Review of Systems Exam Vitals Vital Signs Date Temp Pulse Resp B/P (MAP) Pulse Ox O2 O2 Flow FiO2 Time Delivery Rate 08/03/18 98.5 90 20 151/78 99 12:04 (102) 08/03/18 30 11:13 08/01/18 Mechanical 15:26 Ventilator Trach Collar Intake and Output 08/02/18 08/02/18 08/03/18 1515:00 23:00 07:00 IntakeIntake Total 650 ml 600 ml OutputOutput Total 1200 ml 450 ml BalanceBalance -550 ml 150 ml Exam Constitutional: alert, oriented Neck: other (Tracheostomy) Respiratory: diminished breath sounds Cardiovascular: regular rate and rhythm Gastrointestinal: soft, non-tender, other (G-tube) Extremities: normal pulses Neurological: nl mental status Results Results 24hrs Laboratory Tests Test 08/03/18 06:34 White Blood Count 9.5 Red Blood Count 2.70 L Hemoglobin 9.1 L Hematocrit 30.2 L Mean Corpuscular Volume 111.9 H Mean Corpuscular Hemoglobin 33.7 H Mean Corpuscular Hemoglobin Concent 30.1 L Red Cell Distribution Width 23.8 H Platelet Count 170 Mean Platelet Volume 11.0 H Immature Granulocytes % 0.300 Neutrophils % 78.6 H Lymphocytes % 9.0 L Monocytes % 6.9 Eosinophils % 4.8 Basophils % 0.4 Nucleated Red Blood Cells % 0.2 H Immature Granulocytes # 0.030 Neutrophils # 7.4 Lymphocytes # 0.9 Monocytes # 0.7 Eosinophils # 0.5 Basophils # 0.0 Nucleated Red Blood Cells # 0.0 Sodium Level 139 Potassium Level 3.3 L Chloride Level 106 Carbon Dioxide Level 22 Anion Gap 11 Blood Urea Nitrogen 98 H Creatinine 2.39 H Est Glomerular Filtrat Rate mL/min Glucose Level 124 Calcium Level 9.5 Phenytoin (Dilantin) Level 9.1 L Medications Medication Current Medications IV Flush (NS 10 ml) 10 ml PRN IV ; Start 05/06/18 at 20:30 Zinc Sulfate (Zinc Sulfate) 220 mg DAILY GTB Last administered on 08/03/18 08:59; Admin Dose 220 MG; Start 05/07/18 at 09:00 Ondansetron HCl (Zofran Tab) 4 mg Q6H PRN GTB NAUSEA AND/OR VOMITING Last administered on 05/31/18 16:47; Admin Dose 4 MG; Start 05/07/18 at 00:15 Multivitamins (Multivitamin) 30 ml DAILY GTB Last administered on 08/03/18 08:58; Admin Dose 30 ML; Start 05/07/18 at 09:00 Miscellaneous Information (Pending Santyl Order For Wound Care) This patient goldman... PRN PRN XX WOUND CARE; Start 05/09/18 at 17:00 Clonidine (Catapres) 0.1 mg Q6H PRN PO ELEVATED BLOOD PRESSURE Last administered on 08/02/18 20:54; Admin Dose 0.1 MG; Start 06/03/18 at 03:30 Bumetanide (Bumex) 1 mg BID DIURETICS GTB Last administered on 08/03/18 05:13; Admin Dose 1 MG; Start 06/11/18 at 18:00 Dicyclomine HCl (Bentyl) 20 mg Q8 PO Last administered on 08/03/18 12:59; Admin Dose 20 MG; Start 06/27/18 at 22:00 Cholestyramine Resin (Questran Light) 4 gm 0600,1200,1800,2300 GTB Last administered on 08/03/18 12:50; Admin Dose 4 GM; Start 06/27/18 at 18:00 Metoprolol Tartrate (Lopressor) 50 mg Q8 GTB Last administered on 08/03/18 12:58; Admin Dose 50 MG; Start 07/05/18 at 22:00 Amikacin Sulfate (Amikacin Iv Per Pharmacy) 1 ea NOTE XX ; Start 07/09/18 at 17:30 Vancomycin HCl (Vancomycin Oral Syringe) 125 mg Q6 GTB Last administered on 08/03/18 12:50; Admin Dose 125 MG; Start 07/09/18 at 18:00 Epoetin Zen-epbx (Retacrit (Non-Esrd)) 10,000 unit MoWeFr@1700 SC Last administered on 07/31/18 17:38; Admin Dose 10,000 UNIT; Start 07/13/18 at 17:00 Cefepime HCl 50 ml @ 100 mls/hr Q24H IVPB Last administered on 08/02/18 18:44; Admin Dose 100 MLS/HR; Start 07/14/18 at 18:30 Albuterol/ Ipratropium (Duoneb) 3 ml Q2H RESP THERAPY PRN HHN WHEEZING Last administered on 07/21/18 23:06; Admin Dose 3 ML; Start 07/21/18 at 22:00 Amiodarone HCl (Cordarone) 200 mg BID GTB Last administered on 08/03/18 08:59; Admin Dose 200 MG; Start 07/22/18 at 21:00 Citric Acid/ Sodium Citrate (Bicitra) 60 ml DAILY PO Last administered on 08/03/18 08:58; Admin Dose 60 ML; Start 07/23/18 at 09:00 Amikacin Sulfate 400 mg/Dextrose 101.6 ml @ 101.6 mls/ hr Q5D IVPB Last administered on 07/30/18 23:17; Admin Dose 101.6 MLS/HR; Start 07/30/18 at 23:00 Levothyroxine Sodium (Synthroid) 75 mcg DAILY@06 GTB Last administered on 08/03/18 05:14; Admin Dose 75 MCG; Start 07/28/18 at 06:00 Nystatin (Nystatin Powder) 1 applic BID TOP Last administered on 08/03/18 09:02; Admin Dose 1 APPLIC; Start 07/28/18 at 17:30 IV Flush (NS 10 ml) 10 ml Q8 PRN IV IV PROTOCOL; Start 07/28/18 at 19:00 Phenytoin (Dilantin) 200 mg Q12H IV Last administered on 08/03/18at 09:00; Admin Dose 200 MG; Start 07/29/18 at 20:00 Amlodipine Besylate (Norvasc) 2.5 mg BID PO Last administered on 08/03/18at 08:59; Admin Dose 2.5 MG; Start 07/30/18 at 21:00 Lorazepam (Ativan) 0.5 mg Q4 PRN IV agitation; Start 08/02/18 at 15:00 GRISELDA DENNIS Aug 03, 2018 13:46
--- NOTE | 2018-08-03 14:45 | CONS ---
Assessment/Plan Assessment/Plan Assessment/Plan (Recall) 73 F c/ multiple medial comorbidities, who presents for evaluation of lethargy in the context of acute on chronic renal failure and severe hyponatremia. Her mental status reportedly improved w/ symptomatic management of the above, but has since declined anew..for which neurology is consulted.. Of note, she has a Hx of afib...and a report of a possible mitral vegetation on echocardiogram from 04/2018.. Seizure was an initial consideration; EEG was notable for electrographic seizure activity.... Now s/p Dilantin with clinical improvement. MRI brain is reassuringly negative for obvious acute intracranial pathology. Ammonia wnl P: Cont Dilantin for seizure ppx; to be titrated prn to goal 10-20 Ativan iv prn prolonged seizure (> 5 min) Limit sedating medications where possible Other medical management and supportive care per primary Will follow clinically Consultation Date/Type/Reason Admit Date/Time May 06, 2018 at 17:38 Type of Consult Neurology Reason for Consultation ams Requesting Provider: ROLAND GIRON MD Date/Time of Note DATE: 08/03/18 TIME: 14:42 24 HR Interval Summary Free Text/Dictation Continues acute care Exam/Review of Systems Exam Vitals Vital Signs Date Temp Pulse Resp B/P (MAP) Pulse Ox O2 O2 Flow FiO2 Time Delivery Rate 08/03/18 98.5 90 20 151/78 99 12:04 (102) 08/03/18 30 11:13 08/01/18 Mechanical 15:26 Ventilator Trach Collar Intake and Output 08/02/18 08/02/18 08/03/18 1515:00 23:00 07:00 IntakeIntake Total 650 ml 600 ml OutputOutput Total 1200 ml 450 ml BalanceBalance -550 ml 150 ml Exam PE: Gen Appearance: No Apparent Distress HEENT: Trach Cardiovascular: Regular rate Abdomen: Soft Extremities: Dry NE: The patient was alert, though nonverbal. She was able to fix and follow visually, though not commands.. Cranial nerve examination was limited by mental status. Pupils were equal and reactive to light. There was no afferent pupillary defect. Funduscopic examination was limited. Face was grossly symmetric, w/ present corneal and coug h reflexes. Tone was increased. Muscle bulk was normal. I did not see fasciculations. The patient was weak. Coordination and gait testing was limited by mental status. Gonzales's sign was absent. Plantar responses were BRITTANY Results Result Diagram: 08/03/18 0634 08/03/18 0634 Results 24hrs Laboratory Tests Test 08/03/18 06:34 White Blood Count 9.5 Red Blood Count 2.70 L Hemoglobin 9.1 L Hematocrit 30.2 L Mean Corpuscular Volume 111.9 H Mean Corpuscular Hemoglobin 33.7 H Mean Corpuscular Hemoglobin Concent 30.1 L Red Cell Distribution Width 23.8 H Platelet Count 170 Mean Platelet Volume 11.0 H Immature Granulocytes % 0.300 Neutrophils % 78.6 H Lymphocytes % 9.0 L Monocytes % 6.9 Eosinophils % 4.8 Basophils % 0.4 Nucleated Red Blood Cells % 0.2 H Immature Granulocytes # 0.030 Neutrophils # 7.4 Lymphocytes # 0.9 Monocytes # 0.7 Eosinophils # 0.5 Basophils # 0.0 Nucleated Red Blood Cells # 0.0 Sodium Level 139 Potassium Level 3.3 L Chloride Level 106 Carbon Dioxide Level 22 Anion Gap 11 Blood Urea Nitrogen 98 H Creatinine 2.39 H Est Glomerular Filtrat Rate mL/min Glucose Level 124 Calcium Level 9.5 Phenytoin (Dilantin) Level 9.1 L Medications Medication Current Medications IV Flush (NS 10 ml) 10 ml PRN IV ; Start 05/06/18 at 20:30 Zinc Sulfate (Zinc Sulfate) 220 mg DAILY GTB Last administered on 08/03/18at 08:59; Admin Dose 220 MG; Start 05/07/18 at 09:00 Ondansetron HCl (Zofran Tab) 4 mg Q6H PRN GTB NAUSEA AND/OR VOMITING Last administered on 05/31/18at 16:47; Admin Dose 4 MG; Start 05/07/18 at 00:15 Multivitamins (Multivitamin) 30 ml DAILY GTB Last administered on 08/03/18at 08:58; Admin Dose 30 ML; Start 05/07/18 at 09:00 Miscellaneous Information (Pending Santyl Order For Wound Care) This patient goldman... PRN PRN XX WOUND CARE; Start 05/09/18 at 17:00 Clonidine (Catapres) 0.1 mg Q6H PRN PO ELEVATED BLOOD PRESSURE Last adminis tered on 08/02/18at 20:54; Admin Dose 0.1 MG; Start 06/03/18 at 03:30 Bumetanide (Bumex) 1 mg BID DIURETICS GTB Last administered on 08/03/18at 05:13; Admin Dose 1 MG; Start 06/11/18 at 18:00 Dicyclomine HCl (Bentyl) 20 mg Q8 PO Last administered on 08/03/18 12:59; Admin Dose 20 MG; Start 06/27/18 at 22:00 Cholestyramine Resin (Questran Light) 4 gm 0600,1200,1800,2300 GTB Last administered on 08/03/18 12:50; Admin Dose 4 GM; Start 06/27/18 at 18:00 Metoprolol Tartrate (Lopressor) 50 mg Q8 GTB Last administered on 08/03/18 12:58; Admin Dose 50 MG; Start 07/05/18 at 22:00 Amikacin Sulfate (Amikacin Iv Per Pharmacy) 1 ea NOTE XX ; Start 07/09/18 at 17:30 Vancomycin HCl (Vancomycin Oral Syringe) 125 mg Q6 GTB Last administered on 08/03/18 12:50; Admin Dose 125 MG; Start 07/09/18 at 18:00 Epoetin Zen-epbx (Retacrit (Non-Esrd)) 10,000 unit MoWeFr@1700 SC Last administered on 07/31/18 17:38; Admin Dose 10,000 UNIT; Start 07/13/18 at 17:00 Cefepime HCl 50 ml @ 100 mls/hr Q24H IVPB Last administered on 08/02/18at 18:44; Admin Dose 100 MLS/HR; Start 07/14/18 at 18:30 Albuterol/ Ipratropium (Duoneb) 3 ml Q2H RESP THERAPY PRN HHN WHEEZING Last administered on 07/21/18 23:06; Admin Dose 3 ML; Start 07/21/18 at 22:00 Amiodarone HCl (Cordarone) 200 mg BID GTB Last administered on 08/03/18 08:59; Admin Dose 200 MG; Start 07/22/18 at 21:00 Citric Acid/ Sodium Citrate (Bicitra) 60 ml DAILY PO Last administered on 08/03/18 08:58; Admin Dose 60 ML; Start 07/23/18 at 09:00 Amikacin Sulfate 400 mg/Dextrose 101.6 ml @ 101.6 mls/ hr Q5D IVPB Last administered on 07/30/18at 23:17; Admin Dose 101.6 MLS/HR; Start 07/30/18 at 23:00 Levothyroxine Sodium (Synthroid) 75 mcg DAILY@06 GTB Last administered on 08/03/18at 05:14; Admin Dose 75 MCG; Start 07/28/18 at 06:00 Nystatin (Nystatin Powder) 1 applic BID TOP Last administered on 08/03/18at 09:02; Admin Dose 1 APPLIC; Start 07/28/18 at 17:30 IV Flush (NS 10 ml) 10 ml Q8 PRN IV IV PROTOCOL; Start 07/28/18 at 19:00 Phenytoin (Dilantin) 200 mg Q12H IV Last administered on 08/03/18at 09:00; Admin Dose 200 MG; Start 07/29/18 at 20:00 Amlodipine Besylate (Norvasc) 2.5 mg BID PO Last administered on 08/03/18at 08:59; Admin Dose 2.5 MG; Start 07/30/18 at 21:00 Lorazepam (Ativan) 0.5 mg Q4 PRN IV agitation; Start 08/02/18 at 15:00 PANCHO ORTIZ 17, 2019 14:45
[2018-08-03] MEDS: CEFEPIME 2GM/50 ML (PMX) 50 ML IVPB SCH (17:53)
--- NOTE | 2018-08-03 17:58 | CONS ---
Assessment/Plan Assessment/Plan Hospital Course (Demo Recall) # sepsis, leukocytosis, SIRS, pulmonary, cardiac - recurrent leukocytosis due to bacteremia (below), improved - s/p septic shock due to pneumonia and C diff colitis - acute on chronic hypoxic respiratory failure, persistent - s/p reintubation 05/12/2018 - s/p re-do trach on 05/29/2018 - recurrent colonization of the anterior neck wound with ESBL+kleb, MRSA, GBS, corynebacteria on 05/06/2018 - h/o pneumonia vs. colonization of the airway by pseudomonas and ESBL+klebsiella - h/o possible, recurrent HCAP due to pseudomonas and ESBL+klebsiella - h/o recurrent HCAP due to MRSA and Enterobacter (culture of tracheal aspirate on 07/16/2017 that was collected at [facility]) . Pt took vancomycin and ceftazidime - h/o decannulation prior to admission - h/o tracheostomy on 06/11/2017 - h/o SIRS from UGIB in 2018 - h/o thoracentesis on 07/18/2017, transudative (protein <2, LDH 279) - h/o bleeding from the trach site in 2018 - h/o septic shock due to pneumonia, ARDS, bacteremia, fungemia in 2018 - h/o ARDS in 2018 - h/o smoking - COPD - h/o ILD per medical record - h/o PAF, improved - echodense structure in posterior leafleat region, differential includes calcification vs vegetation per 2D echo 07/15/2018 # GI - s/p possible ileus or enterocolitis on CT abd/pel 06/15/2018-->follow up CT on 07/15/2018 showed no evidence of urolithiasis, obstructive uropathy or diverticulitis; it showed small to moderate ascites - C diff colitis, diagnosed on 05/11/2018. Pt is on pGT vancomycin (05/11/2018-); Pt previously took IV metronidazole (05/11/2018-05/29/2018; restart 05/30/2018- 06/05/18) too - Pt had multiple negative C. diff tests at [facility] and at OSH in the past; none was positive until 05/11/2018 - dysphagia - h/o PEG placement 06/13/2018 - protein calorie malnutrition - h/o coffee ground emesis/UGIB on 12/23/2017 due to deep ulceration of distal esophagus and gastritis on EGD 12/26/2017. No e/o H. pylori - h/o possible appendicitis on CT on 11/22/2017, Pt took ertapenem (11/24/2017- 12/01/2017) - h/o extensive adhesions lower abdominal and pelvis between small bowel to each other and to colon and to abdominal wall, anterior pelvic wall chronic abscess secondary to probably an old perforated diverticulitis, torsion of small bowel around these dense adhesion causing multiple obstructive points - h/o laparoscopic exploration and extensive lysis of adhesions and drainage of anterior pelvic wall abscess 09/16/2017. Cultures were negative, no e/o malignancy. Pt took pip/tazo (09/16/2017-09/26/2017) - h/o EGD and exchange of PEG on 09/01/2017 - h/o partial obstruction mid jejunum in L anterior central pelvis with suggestion of a 3 cm soft tissue mass on CT 08/28/2017 - h/o internal stomal deep ulcer behind the internal bumper, gastritis and esophagitis, Rodriguez's cannot be ruled out, per EGD with biopsy 07/23/2017 - h/o GIB s/p flex sig showed polyp; stool OB negative on 06/29/17 - h/o stool OB positive status - h/o SBO and ileus due to pain meds - h/o mildly elevated CEA # renal/ - s/p recurrent UTI due to pseudomonas (culture on 07/09/2018)-->Garza catheter was replaced on 07/14/2018 - s/p UTI due to MDR, CRE-klebsiella on 06/15/2018. S/p renally dosed amikacin for klebsiella in her urine culture (06/17-06/22/2018) - s/p UTI due to pseudomonas and ESBL+klebsiella on 06/09/2018, Pt took one dose of fosfomycin on 06/10/2018 and cipro 06/12-06/15/2018 - anasarca - started on HD on 05/15/2018, via Juan in R groin - recurrent NATHAN on CKD - 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 Her strain of CRE was sensitive to colistin, Avycaz, and Vabomere but resistant to Zerbaxa (reported on 05/19/2018) - metabolic acidosis - adrenal insufficiency - h/o vaginal bleed in 2018 - h/o colonization of urinary tract by ESBL+klebsiella, VRE - h/o recurrent, symptomatic UTI due to carbapenem-resistant kleb (MDR strain) per urine culture 10/04/17, 10/09/17, 10/21/2017, P took colistin (10/09/2017- 10/15/2017), fosfomycin for carbapenemase-producing klebsiella and VRE on 10/25/2017 and 10/28/2017 - h/o funguria - h/o urinary retention # bloodstream infections - bacteremia d/t pseudomonas aeruginosa 07/09/18, 07/10/18, 07/11/18, 07/12/18, 07/13/18, 07/15/18, 07/17/18. This is associated with PICC because the blood culture from PICC and phlebotomy on 07/13/2018 both grew the same bacteria. The tip of PICC that was removed on 07/14/18 also grew the same bacteria in culture. Latest Pseudomonas from blood culture on 07/17/2018 was susceptible to amikacin, gentamicin, tobramycin, colistin, and Zerbaxa (resistant to Avycaz) 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; Pt declin ed surgery for MVR per outside medical records; TTE 07/01/17 did not mention any thrombus; s/p voriconazole (05/25/2017-08/01/2017) - h/o bacteremia due to MSSA and proteus s/p ceftriaxone; repeat blood cultures were negative on 06/14/2017 - s/p RUE PICC line placement 07/28/2018 # musculoskeletal and dermatological - dry skin - chronic wound of LLE - h/o infection of wound of LLE - h/o debridement of wound of LLE on 08/06/2017 - h/o recurrent herpes labialis, Pt took acyclovir, valacyclovir - h/o Osler's nodes (eschar) of R toes with erythematous skin; desquamation of the skin and open lacerations on R plantar foot. improved. Probable manifestation of endocarditis. Pt declined MRI on 08/06/2017 - h/o infection of R toes due to pseudomonas. coagulase negative Staph likely a colonizer - h/o intertrigo of the groin, resolved with nystatin powder - h/o scabies (proven by skin scraping), locally crusted lesion over L scapula, s/p permethrin cream and pGT ivermectin on 08/11/2017, 08/12/2017, 08/19/2017. Repeat skin scraping on 08/21/2017 was negative for scabies # psych, neuro - chronic toxic metabolic encephalopathy, progressing - MRI brain on 07/26/2018 showed no acute intracranial pathology - seizure activity per EEG 07/27/18 - on Dilantin - decreased hearing b/l - h/o critical illness polyneuropathy - anxiety/depression, bipolar d/o, seen by Psychiatry in the past - chronic pain syndrome - h/o medical non-compliance: she would refuse her medications, treatment and straight catheterization in 2018 - complete opacification of the bilateral mastoid air cells per MRI Brain on 07/26/2018 # hematological, vascular - chronic anemia requiring blood transfusion intermittently - macrocytic anemia - aneurysmal dilatation of the distal aorta visualized on CT 06/15/2018 - PVD # other - hypothyroidism with elevated TSH - on Synthroid recommendations: - Continue amikacin IV (07/09/2018-). Pt had a strain of pseudomonas that was resistant to all except for aminoglycoside - Continue renally dosed cefepime (07/14/2018-); Pt needs double coverage because amikacin alone has not cleared her bacteremia. Some strains of pseudomonas she had were pansensitive while other strains of pseudomonas were resistant to many antibiotics (MDR). Most recent pseudomonas from was sensitive to amikacin, gentamicin, tobramicin, colistin, ceftolozane/tazobactam, resistant to ceftaz/avibactam. Dr. Doyle d/w Pharmacy on 07/31/18: we will request ceftolozane/tazobactam if Pt appears to have hearing problems with amikacin or other side effects - we recommend 6 weeks of antibiotics for probable endocarditis - continue vancomycin pGT (07/09/18-) while on IV antibiotics given h/o C. diff. Pt completed IV metronidazole (07/09/18-07/15/18) - We recommend bi monthly Audiology testing for this Pt while taking amikacin management d/w Pt's RT Francisco Javier Consultation Date/Type/Reason Admit Date/Time May 06, 2018 at 17:38 Initial Consult Date 05/10/18 Type of Consult ID Requesting Provider: ROLAND GIRON MD Date/Time of Note DATE: 08/03/18 TIME: 17:43 24 HR Interval Summary Subjective hx not possible: pt non-verbal Exam/Review of Systems Exam Vitals Vital Signs Date Temp Pulse Resp B/P (MAP) Pulse Ox O2 O2 Flow FiO2 Time Delivery Rate 08/03/18 98.0 100 20 147/73 99 16:49 (97) 08/03/18 30 14:47 08/01/18 Mechanical 15:26 Ventilator Trach Collar Intake and Output 08/02/18 08/02/18 08/03/18 1515:00 23:00 07:00 IntakeIntake Total 650 ml 600 ml OutputOutput Total 1200 ml 450 ml BalanceBalance -550 ml 150 ml Constitutional: non-verbal, frail Psych: confusion Head: normocephalic, atraumatic Eyes: nl conjunctiva, nl lids, nl sclera ENMT: nl external ears & nose, other (dry mucus membranes) Neck: other (trach); No jvd Respiratory: crackles/rales, diminished breath sounds Cardiovascular: regular rate and rhythm, nl pulses Gastrointestinal: soft, non-tender, bowel sounds, distended, surgical scars, other (GT); No firm, No hepatomegaly, No rebound or guarding Musculoskeletal: muscle weakness; No swelling Extremities: edema Neurological: lethargic, other (attempted to follow commands) Skin: ecchymosis; No rash or lesions Results Result Diagram: 08/03/18 0634 08/03/18 0634 Results 24hrs Laboratory Tests Test 08/03/18 06:34 White Blood Count 9.5 Red Blood Count 2.70 L Hemoglobin 9.1 L Hematocrit 30.2 L Mean Corpuscular Volume 111.9 H Mean Corpuscular Hemoglobin 33.7 H Mean Corpuscular Hemoglobin Concent 30.1 L Red Cell Distribution Width 23.8 H Platelet Count 170 Mean Platelet Volume 11.0 H Immature Granulocytes % 0.300 Neutrophils % 78.6 H Lymphocytes % 9.0 L Monocytes % 6.9 Eosinophils % 4.8 Basophils % 0.4 Nucleated Red Blood Cells % 0.2 H Immature Granulocytes # 0.030 Neutrophils # 7.4 Lymphocytes # 0.9 Monocytes # 0.7 Eosinophils # 0.5 Basophils # 0.0 Nucleated Red Blood Cells # 0.0 Sodium Level 139 Potassium Level 3.3 L Chloride Level 106 Carbon Dioxide Level 22 Anion Gap 11 Blood Urea Nitrogen 98 H Creatinine 2.39 H Est Glomerular Filtrat Rate mL/min Glucose Level 124 Calcium Level 9.5 Phenytoin (Dilantin) Level 9.1 L Medications Medication Current Medications IV Flush (NS 10 ml) 10 ml PRN IV ; Start 05/06/18 at 20:30 Zinc Sulfate (Zinc Sulfate) 220 mg DAILY GTB Last administered on 08/03/18 08:59; Admin Dose 220 MG; Start 05/07/18 at 09:00 Ondansetron HCl (Zofran Tab) 4 mg Q6H PRN GTB NAUSEA AND/OR VOMITING Last administered on 05/31/18at 16:47; Admin Dose 4 MG; Start 05/07/18 at 00:15 Multivitamins (Multivitamin) 30 ml DAILY GTB Last administered on 08/03/18 08:58; Admin Dose 30 ML; Start 05/07/18 at 09:00 Miscellaneous Information (Pending Santyl Order For Wound Care) This patient goldman... PRN PRN XX WOUND CARE; Start 05/09/18 at 17:00 Clonidine (Catapres) 0.1 mg Q6H PRN PO ELEVATED BLOOD PRESSURE Last administered on 08/02/18at 20:54; Admin Dose 0.1 MG; Start 06/03/18 at 03:30 Bumetanide (Bumex) 1 mg BID DIURETICS GTB Last administered on 08/03/18at 05:13; Admin Dose 1 MG; Start 06/11/18 at 18:00 Dicyclomine HCl (Bentyl) 20 mg Q8 PO Last administered on 08/03/18at 12:59; Admin Dose 20 MG; Start 06/27/18 at 22:00 Cholestyramine Resin (Questran Light) 4 gm 0600,1200,1800,2300 GTB Last administered on 08/03/18 12:50; Admin Dose 4 GM; Start 06/27/18 at 18:00 Metoprolol Tartrate (Lopressor) 50 mg Q8 GTB Last administered on 08/03/18 12:58; Admin Dose 50 MG; Start 07/05/18 at 22:00 Amikacin Sulfate (Amikacin Iv Per Pharmacy) 1 ea NOTE XX ; Start 07/09/18 at 17:30 Vancomycin HCl (Vancomycin Oral Syringe) 125 mg Q6 GTB Last administered on 08/03/18 12:50; Admin Dose 125 MG; Start 07/09/18 at 18:00 Epoetin Zen-epbx (Retacrit (Non-Esrd)) 10,000 unit MoWeFr@1700 SC Last administered on 07/31/18 17:38; Admin Dose 10,000 UNIT; Start 07/13/18 at 17:00 Cefepime HCl 50 ml @ 100 mls/hr Q24H IVPB Last administered on 08/02/18at 18 :44; Admin Dose 100 MLS/HR; Start 07/14/18 at 18:30 Albuterol/ Ipratropium (Duoneb) 3 ml Q2H RESP THERAPY PRN HHN WHEEZING Last administered on 07/21/18 23:06; Admin Dose 3 ML; Start 07/21/18 at 22:00 Amiodarone HCl (Cordarone) 200 mg BID GTB Last administered on 08/03/18 08:59; Admin Dose 200 MG; Start 07/22/18 at 21:00 Citric Acid/ Sodium Citrate (Bicitra) 60 ml DAILY PO Last administered on 08:58; Admin Dose 60 ML; Start 07/23/18 at 09:00 Amikacin Sulfate 400 mg/Dextrose 101.6 ml @ 101.6 mls/ hr Q5D IVPB Last administered on 07/30/18 23:17; Admin Dose 101.6 MLS/HR; Start 07/30/18 at 23:00 Levothyroxine Sodium (Synthroid) 75 mcg DAILY@06 GTB Last administered on 08/03/18 05:14; Admin Dose 75 MCG; Start 07/28/18 at 06:00 Nystatin (Nystatin Powder) 1 applic BID TOP Last administered on 6/17/19at 09:02; Admin Dose 1 APPLIC; Start 07/28/18 at 17:30 IV Flush (NS 10 ml) 10 ml Q8 PRN IV IV PROTOCOL; Start 07/28/18 at 19:00 Phenytoin (Dilantin) 200 mg Q12H IV Last administered on 08/03/18at 09:00; Admin Dose 200 MG; Start 07/29/18 at 20:00 Amlodipine Besylate (Norvasc) 2.5 mg BID PO Last administered on 08/03/18at 08:59; Admin Dose 2.5 MG; Start 07/30/18 at 21:00 Lorazepam (Ativan) 0.5 mg Q4 PRN IV agitation; Start 08/02/18 at 15:00 CELESTINE MURPHY M.D. Aug 03, 2018 17:58
[2018-08-03] MEDS: EPOETIN ALFA-EPBX (NON-ESRD 10,000 UNIT/ML VIAL SC SCH (18:08)
[2018-08-03] MEDS ORDERED: IOHEXOL 14.3 MG(I)/ML (ADULT) BTL PO ONE (18:30)
--- NOTE | 2018-08-03 19:44 | CONS ---
Assessment/Plan Assessment/Plan Assessment/Plan (Daily) Septic as well as hemorrhagic shock, improving Acute respiratory failure status post intubation and repeat tracheostomy Acute blood loss anemia History of respiratory failure status post decannulation Preserved ejection fraction echocardiogram 05/10/2018 Paroxysmal atrial fibrillation Acute kidney injury Presumed mitral valve endocarditis -Antibiotics as per infectious disease -Blood pressure trend improved -Patient with paroxysmal atrial fibrillation, currently in sinus rhythm -Continue amiodarone -Vent management as per pulmonary -Fluid management and electrolytes as per renal -No anticoagulation given recurrent anemia requiring blood transfusions Consultation Date/Type/Reason Admit Date/Time May 06, 2018 at 17:38 Initial Consult Date 05/10/18 Type of Consult Cardiology Requesting Provider: ROLAND GIRON MD Date/Time of Note DATE: 08/03/18 TIME: 19:41 24 HR Interval Summary Free Text/Dictation he pateint with no cahnge Exam/Review of Systems Vital Signs Vitals Vital Signs Date Temp Pulse Resp B/P (MAP) Pulse Ox O2 O2 Flow FiO2 Time Delivery Rate 08/03/18 75 27 100 30 17:47 08/03/18 98.0 147/73 16:49 (97) 08/01/18 Mechanical 15:26 Ventilator Trach Collar Intake and Output 08/02/18 08/02/18 08/03/18 1414:59 22:59 06:59 IntakeIntake Total 650 ml 600 ml OutputOutput Total 1200 ml 450 ml BalanceBalance -550 ml 150 ml Labs Result Diagram: 08/03/18 0634 08/03/18 0634 Results 24hrs Laboratory Tests Test 08/03/18 06:34 White Blood Count 9.5 Red Blood Count 2.70 L Hemoglobin 9.1 L Hematocrit 30.2 L Mean Corpuscular Volume 111.9 H Mean Corpuscular Hemoglobin 33.7 H Mean Corpuscular Hemoglobin Concent 30.1 L Red Cell Distribution Width 23.8 H Platelet Count 170 Mean Platelet Volume 11.0 H Immature Granulocytes % 0.300 Neutrophils % 78.6 H Lymphocytes % 9.0 L Monocytes % 6.9 Eosinophils % 4.8 Basophils % 0.4 Nucleated Red Blood Cells % 0.2 H Immature Granulocytes # 0.030 Neutrophils # 7.4 Lymphocytes # 0.9 Monocytes # 0.7 Eosinophils # 0.5 Basophils # 0.0 Nucleated Red Blood Cells # 0.0 Sodium Level 139 Potassium Level 3.3 L Chloride Level 106 Carbon Dioxide Level 22 Anion Gap 11 Blood Urea Nitrogen 98 H Creatinine 2.39 H Est Glomerular Filtrat Rate mL/min Glucose Level 124 Calcium Level 9.5 Phenytoin (Dilantin) Level 9.1 L Medications Medications Current Medications IV Flush (NS 10 ml) 10 ml PRN IV ; Start 05/06/18 at 20:30 Zinc Sulfate (Zinc Sulfate) 220 mg DAILY GTB Last administered on 08/03/18at 08:59; Admin Dose 220 MG; Start 05/07/18 at 09:00 Ondansetron HCl (Zofran Tab) 4 mg Q6H PRN GTB NAUSEA AND/OR VOMITING Last administered on 05/31/18 16:47; Admin Dose 4 MG; Start 05/07/18 at 00:15 Multivitamins (Multivitamin) 30 ml DAILY GTB Last administered on 08/03/18 08:58; Admin Dose 30 ML; Start 05/07/18 at 09:00 [facility] This patient goldman... PRN PRN XX WOUND CARE; Start 05/09/18 at 17:00 Clonidine (Catapres) 0.1 mg Q6H PRN PO ELEVATED BLOOD PRESSURE Last administered on 08/02/18 20:54; Admin Dose 0.1 MG; Start 06/03/18 at 03:30 Bumetanide (Bumex) 1 mg BID DIURETICS GTB Last administered on 08/03/18at 17:53; Admin Dose 1 MG; Start 06/11/18 at 18:00 Dicyclomine HCl (Bentyl) 20 mg Q8 PO Last administered on 08/03/18at 12:59; Admin Dose 20 MG; Start 06/27/18 at 22:00 Cholestyramine Resin (Questran Light) 4 gm 0600,1200,1800,2300 GTB Last administered on 08/03/18at 17:54; Admin Dose 4 GM; Start 06/27/18 at 18:00 Metoprolol Tartrate (Lopressor) 50 mg Q8 GTB Last administered on 08/03/18 12:58; Admin Dose 50 MG; Start 07/05/18 at 22:00 Amikacin Sulfate (Amikacin Iv Per Pharmacy) 1 ea NOTE XX ; Start 07/09/18 at 17:30 Vancomycin HCl (Vancomycin Oral Syringe) 125 mg Q6 GTB Last administered on 08/03/18at 17:53; Admin Dose 125 MG; Start 07/09/18 at 18:00 Epoetin Zen-epbx (Retacrit (Non-Esrd)) 10,000 unit MoWeFr@1700 SC Last administered on 08/03/18 18:08; Admin Dose 10,000 UNIT; Start 07/13/18 at 17:00 Cefepime HCl 50 ml @ 100 mls/hr Q24H IVPB Last administered on 08/03/18 17:53; Admin Dose 100 MLS/HR; Start 07/14/18 at 18:30 Albuterol/ Ipratropium (Duoneb) 3 ml Q2H RESP THERAPY PRN HHN WHEEZING Last administered on 07/21/18 23:06; Admin Dose 3 ML; Start 07/21/18 at 22:00 Amiodarone HCl (Cordarone) 200 mg BID GTB Last administered on 08/03/18at 08:59; Admin Dose 200 MG; Start 07/22/18 at 21:00 Citric Acid/ Sodium Citrate (Bicitra) 60 ml DAILY PO Last administered on 08/03/18 08:58; Admin Dose 60 ML; Start 07/23/18 at 09:00 Amikacin Sulfate 400 mg/Dextrose 101.6 ml @ 101.6 mls/ hr Q5D IVPB Last administered on 07/30/18at 23:17; Admin Dose 101.6 MLS/HR; Start 07/30/18 at 23:00 Levothyroxine Sodium (Synthroid) 75 mcg DAILY@06 GTB Last administered on 08/03/18at 05:14; Admin Dose 75 MCG; Start 07/28/18 at 06:00 Nystatin (Nystatin Powder) 1 applic BID TOP Last administered on 08/03/18at 09:02; Admin Dose 1 APPLIC; Start 07/28/18 at 17:30 IV Flush (NS 10 ml) 10 ml Q8 PRN IV IV PROTOCOL; Start 07/28/18 at 19:00 Phenytoin (Dilantin) 200 mg Q12H IV Last administered on 08/03/18at 09:00; Admin Dose 200 MG; Start 07/29/18 at 20:00 Amlodipine Besylate (Norvasc) 2.5 mg BID PO Last administered on 08/03/18at 08:59; Admin Dose 2.5 MG; Start 07/30/18 at 21:00 Lorazepam (Ativan) 0.5 mg Q4 PRN IV agitation; Start 08/02/18 at 15:00 CODY SO MD Aug 03, 2018 19:44
[2018-08-04] VITALS (23 sets, daily range): BP systolic 139–152; BP diastolic 78–88; PULSE 68–112; RESP 18–39
[2018-08-04] MEDS: LEVOTHYROXINE 75 MCG TAB GTB SCH (05:24)
[2018-08-04] MEDS: BUMETANIDE 1 MG TAB GTB SCH ×2 (05:24→18:22)
[2018-08-04] MEDS: CHOLESTYRAMINE (LIGHT) 4 GM PACKET GTB SCH ×4 (05:24→23:53)
[2018-08-04] MEDS: DICYCLOMINE 10 MG CAP PO SCH ×3 (05:24→21:12)
[2018-08-04] MEDS: METOPROLOL 50 MG TAB GTB SCH ×3 (05:25→21:13)
[2018-08-04] MEDS: VANCOMYCIN HCL 250 MG/5ML POSYG GTB SCH ×4 (05:34→23:53)
[2018-08-04] MEDS: AMLODIPINE 2.5 MG TAB PO SCH ×2 (09:47→21:12)
[2018-08-04] MEDS: ZINC SULFATE 220 MG CAP GTB SCH (09:47)
[2018-08-04] MEDS: AMIODARONE 200 MG TAB GTB SCH ×2 (09:47→21:11)
[2018-08-04] MEDS: NYSTATIN 30 GM POWDER BTL TOP SCH ×2 (09:47→21:14)
[2018-08-04] MEDS: MULTIVITAMINS 30 ML CUP GTB SCH (09:47)
[2018-08-04] MEDS: CITRIC ACID/NA CITRATE 30 ML CUP PO SCH (09:47)
[2018-08-04] MEDS: PHENYTOIN 100 MG INJ IV SCH ×2 (09:47→21:09)
[2018-08-04] MEDS: BALSAM PERU/CASTOR OIL 60 GM TUBE TOP SCH ×2 (09:48→21:14)
[2018-08-04] MEDS ORDERED: MAGNESIUM SULFATE 2 GM/50 ML 50 ML IVPB ONE (12:00)
--- NOTE | 2018-08-04 13:39 | PN ---
Date/Time of Note Date/Time of Note DATE: 08/04/18 TIME: 13:37 Assessment/Plan VTE Prophylaxis Risk score (from Ns)>0 risk: 10 SCD applied (from Ns): Yes Pharmacological prophylaxis: NA/contraindicated Pharm contraindication: anticoag not tolerated Lines/Catheters IV C[facility] Type ([facility] PICC Line Central line still needed: Yes Urinary Cath still in place: Yes Reason Cath still needed: urinary retention Assessment/Plan Hospital Course Patient is continues on ventilator without distress, pending CT of the abdomen and pelvis for abdominal distention. Assessment/Plan -Possible acute metabolic encephalopathy. Dr. Mathew is following in neurology consultation. -Seizures, continue Dilantin -Persistent leukocytosis with Pseudomonas bacteremia 2 to PICC line infection, continue antibiotics per ID. Dr. Doyle is following in infection disease consultation. 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 TTE 07/16/18 with notion of echodense structure on the mitral valve, calcification vs vegetation. Dr. Scanlon is following in cardiology consultation. Patient needs IV cefepime and amikacin for treatment of bacteremia and presumed endocarditis for 5 weeks until 08/22/2018 per ID recommendations. -Hypothyroidism, continue levothyroxine. -MDR Klebsiella urinary tract infection, completed treatment with amikacin. -Atrial fibrillation was rapid ventricular response, patient remains in sinus rhythm continue metoprolol and amiodarone. -S/p septic shock secondary to urinary tract infection, anterior neck soft tissue infection, and C. difficile colitis. -C-diff colitis,resolved. -Acute respiratory failure requiring intubation and ventilatory support. Dr. Lambert is following in pulmonology consultation. -S/p tracheostomy on 05/29/18. -Acute kidney injury on chronic kidney disease. Started on HD this admission with recovery of renal function. Dr. Mckeon is following in nephrology consultation. -Anemia of chronic inflammation, stool for OB is negative, status post blood transfusion. Continue Epogen. -Metabolic acidosis, resolved. -Acute diastolic congestive heart failure. -Paroxysmal atrial fibrillation -COPD -Dysphagia with PEG. -G-tube mild malfunction, changed by GI Dr. Carolina is following in gastroenterology consultation. -Obesity -Critical care myopathy Further recommendations based on clinical course. Plan of care discussed with Dr. Eisenberg. Result Diagram: 08/03/18 0634 08/04/18 0615 Results 24hrs Laboratory Tests Test 08/04/18 06:15 Sodium Level 137 Potassium Level 3.6 Chloride Level 107 Carbon Dioxide Level 19 L Anion Gap 11 Blood Urea Nitrogen 96 H Creatinine 2.34 H Est Glomerular Filtrat Rate mL/min Glucose Level 97 Calcium Level 9.4 Phosphorus Level 3.1 Magnesium Level 1.6 L Phenytoin (Dilantin) Level 9.0 L Exam/Review of Systems Exam Vitals Vital Signs Date Temp Pulse Resp B/P (MAP) Pulse Ox O2 O2 Flow FiO2 Time Delivery Rate 08/04/18 98.2 112 18 147/80 98 12:43 (102) 08/04/18 30 11:40 08/01/18 Mechanical 15:26 Ventilator Trach Collar Intake and Output 08/03/18 08/03/18 08/04/18 1515:00 23:00 07:00 IntakeIntake Total 440 ml 500 ml OutputOutput Total 1000 ml 800 ml BalanceBalance -560 ml -300 ml Exam Constitutional: alert, oriented Neck: other (Tracheostomy) Respiratory: diminished breath sounds Cardiovascular: regular rate and rhythm Gastrointestinal: soft, non-tender, other (G-tube) Extremities: normal pulses Neurological: nl mental status Results Results 24hrs Laboratory Tests Test 08/04/18 06:15 Sodium Level 137 Potassium Level 3.6 Chloride Level 107 Carbon Dioxide Level 19 L Anion Gap 11 Blood Urea Nitrogen 96 H Creatinine 2.34 H Est Glomerular Filtrat Rate mL/min Glucose Level 97 Calcium Level 9.4 Phosphorus Level 3.1 Magnesium Level 1.6 L Phenytoin (Dilantin) Level 9.0 L Medications Medication Current Medications IV Flush (NS 10 ml) 10 ml PRN IV ; Start 05/06/18 at 20:30 Zinc Sulfate (Zinc Sulfate) 220 mg DAILY GTB Last administered on 08/04/18at 09:47; Admin Dose 220 MG; Start 05/07/18 at 09:00 Ondansetron HCl (Zofran Tab) 4 mg Q6H PRN GTB NAUSEA AND/OR VOMITING Last administered on 05/31/18at 16:47; Admin Dose 4 MG; Start 05/07/18 at 00:15 Multivitamins (Multivitamin) 30 ml DAILY GTB Last administered on 08/04/18at 09:47; Admin Dose 30 ML; Start 05/07/18 at 09:00 Miscellaneous Information (Pending [facility] Order For Wound Care) This patient goldman... PRN PRN XX WOUND CARE; Start 05/09/18 at 17:00 Clonidine (Catapres) 0.1 mg Q6H PRN PO ELEVATED BLOOD PRESSURE Last administered on 08/03/18 20:27; Admin Dose 0.1 MG; Start 06/03/18 at 03:30 Bumetanide (Bumex) 1 mg BID DIURETICS GTB Last administered on 08/04/18 05:24; Admin Dose 1 MG; Start 06/11/18 at 18:00 Dicyclomine HCl (Bentyl) 20 mg Q8 PO Last administered on 08/04/18 05:24; Admin Dose 20 MG; Start 06/27/18 at 22:00 Cholestyramine Resin (Questran Light) 4 gm 0600,1200,1800,2300 GTB Last administered on 08/04/18 11:51; Admin Dose 4 GM; Start 06/27/18 at 18:00 Metoprolol Tartrate (Lopressor) 50 mg Q8 GTB Last administered on 08/04/18 05:25; Admin Dose 50 MG; Start 07/05/18 at 22:00 Amikacin Sulfate (Amikacin Iv Per Pharmacy) 1 ea NOTE XX ; Start 07/09/18 at 17:30 Vancomycin HCl (Vancomycin Oral Syringe) 125 mg Q6 GTB Last administered on 08/04/18 11:51; Admin Dose 125 MG; Start 07/09/18 at 18:00 Epoetin Zen-epbx (Retacrit (Non-Esrd)) 10,000 unit MoWeFr@1700 SC Last administered on 08/03/18 18:08; Admin Dose 10,000 UNIT; Start 07/13/18 at 17:00 Cefepime HCl 50 ml @ 100 mls/hr Q24H IVPB Last administered on 08/03/18 17:53; Admin Dose 100 MLS/HR; Start 07/14/18 at 18:30 Albuterol/ Ipratropium (Duoneb) 3 ml Q2H RESP THERAPY PRN HHN WHEEZING Last administered on 07/21/18 23:06; Admin Dose 3 ML; Start 07/21/18 at 22:00 Amiodarone HCl (Cordarone) 200 mg BID GTB Last administered on 08/04/18 09:47; Admin Dose 200 MG; Start 07/22/18 at 21:00 Citric Acid/ Sodium Citrate (Bicitra) 60 ml DAILY PO Last administered on 08/04/18 09:47; Admin Dose 60 ML; Start 07/23/18 at 09:00 Amikacin Sulfate 400 mg/Dextrose 101.6 ml @ 101.6 mls/ hr Q5D IVPB Last administered on 07/30/18 23:17; Admin Dose 101.6 MLS/HR; Start 07/30/18 at 23:00 Levothyroxine Sodium (Synthroid) 75 mcg DAILY@06 GTB Last administered on 08/04/18 05:24; Admin Dose 75 MCG; Start 07/28/18 at 06:00 Nystatin (Nystatin Powder) 1 applic BID TOP Last administered on 08/04/18 09:47; Admin Dose 1 APPLIC; Start 07/28/18 at 17:30 IV Flush (NS 10 ml) 10 ml Q8 PRN IV IV PROTOCOL; Start 07/28/18 at 19:00 Phenytoin (Dilantin) 200 mg Q12H IV Last administered on 08/04/18 09:47; Admin Dose 200 MG; Start 07/29/18 at 20:00 Amlodipine Besylate (Norvasc) 2.5 mg BID PO Last administered on 08/04/18 09:47; Admin Dose 2.5 MG; Start 07/30/18 at 21:00 Lorazepam (Ativan) 0.5 mg Q4 PRN IV agitation; Start 08/02/18 at 15:00 Magnesium Sulfate 50 ml @ 25 mls/hr ONCE ONCE IVPB ; Start 08/04/18 at 12:00; Stop 08/04/18 at 13:59 GRISELDA DENNIS Aug 04, 2018 13:39
--- NOTE | 2018-08-04 16:10 | CONS ---
Assessment/Plan Assessment/Plan Hospital Course (Demo Recall) Septic as well as hemorrhagic shock, improving Acute respiratory failure status post intubation and repeat tracheostomy Acute blood loss anemia History of respiratory failure status post decannulation Preserved ejection fraction echocardiogram 05/10/2018 Paroxysmal atrial fibrillation Acute kidney injury Presumed mitral valve endocarditis -Antibiotics as per infectious disease -Blood pressure trend improved, titrate antihypertensives as needed and continue with holding parameters -Patient with paroxysmal atrial fibrillation, currently in sinus rhythm -Continue amiodarone as tolerated -Vent management as per pulmonary -Fluid management and electrolytes as per renal -No anticoagulation given recurrent anemia requiring blood transfusions Consultation Date/Type/Reason Admit Date/Time May 06, 2018 at 17:38 Initial Consult Date 05/10/18 Type of Consult Cardiology Requesting Provider: ROLAND GIRON MD Date/Time of Note DATE: 08/04/18 TIME: 16:09 24 HR Interval Summary Free Text/Dictation Patient seen and examined, not answering questions Exam/Review of Systems Vital Signs Vitals Vital Signs Date Temp Pulse Resp B/P (MAP) Pulse Ox O2 O2 Flow FiO2 Time Delivery Rate 08/04/18 98.2 112 18 147/80 98 12:43 (102) 08/04/18 30 11:40 08/01/18 Mechanical 15:26 Ventilator Trach Collar Intake and Output 08/03/18 08/03/18 08/04/18 1515:00 23:00 07:00 IntakeIntake Total 440 ml 500 ml OutputOutput Total 1000 ml 800 ml BalanceBalance -560 ml -300 ml Exam Exam Awake, no apparent distress, not answering questions Head: normocephalic Respiratory: other (Coarse breath sounds bilaterally, no wheezing) Cardiovascular: regular rate and rhythm (S1-S2 heard) Gastrointestinal: soft, non-tender, bowel sounds Extremities: edema Labs Result Diagram: 08/03/18 0634 08/04/18 0615 Results 24hrs Laboratory Tests Test 08/04/18 06:15 Sodium Level 137 Potassium Level 3.6 Chloride Level 107 Carbon Dioxide Level 19 L Anion Gap 11 Blood Urea Nitrogen 96 H Creatinine 2.34 H Est Glomerular Filtrat Rate mL/min Glucose Level 97 Calcium Level 9.4 Phosphorus Level 3.1 Magnesium Level 1.6 L Phenytoin (Dilantin) Level 9.0 L Medications Medications Current Medications IV Flush (NS 10 ml) 10 ml PRN IV ; Start 05/06/18 at 20:30 Zinc Sulfate (Zinc Sulfate) 220 mg DAILY GTB Last administered on 08/04/18 09:47; Admin Dose 220 MG; Start 05/07/18 at 09:00 Ondansetron HCl (Zofran Tab) 4 mg Q6H PRN GTB NAUSEA AND/OR VOMITING Last administered on 05/31/18 16:47; Admin Dose 4 MG; Start 05/07/18 at 00:15 Multivitamins (Multivitamin) 30 ml DAILY GTB Last administered on 08/04/18 09:47; Admin Dose 30 ML; Start 05/07/18 at 09:00 [facility] This patient goldman... PRN PRN XX WOUND CARE; Start 05/09/18 at 17:00 Clonidine (Catapres) 0.1 mg Q6H PRN PO ELEVATED BLOOD PRESSURE Last administered on 08/03/18 20:27; Admin Dose 0.1 MG; Start 06/03/18 at 03:30 Bumetanide (Bumex) 1 mg BID DIURETICS GTB Last administered on 08/04/18 05:24; Admin Dose 1 MG; Start 06/11/18 at 18:00 Dicyclomine HCl (Bentyl) 20 mg Q8 PO Last administered on 08/04/18 15:52; Admin Dose 20 MG; Start 06/27/18 at 22:00 Cholestyramine Resin (Questran Light) 4 gm 0600,1200,1800,2300 GTB Last administered on 08/04/18 11:51; Admin Dose 4 GM; Start 06/27/18 at 18:00 Metoprolol Tartrate (Lopressor) 50 mg Q8 GTB Last administered on 08/04/18 15:53; Admin Dose 50 MG; Start 07/05/18 at 22:00 Amikacin Sulfate (Amikacin Iv Per Pharmacy) 1 ea NOTE XX ; Start 07/09/18 at 17:30 Vancomycin HCl (Vancomycin Oral Syringe) 125 mg Q6 GTB Last administered on 08/04/18 11:51; Admin Dose 125 MG; Start 07/09/18 at 18:00 Epoetin Zen-epbx (Retacrit (Non-Esrd)) 10,000 unit MoWeFr@1700 SC Last admini stered on 08/03/18 18:08; Admin Dose 10,000 UNIT; Start 07/13/18 at 17:00 Cefepime HCl 50 ml @ 100 mls/hr Q24H IVPB Last administered on 08/03/18at 17:53; Admin Dose 100 MLS/HR; Start 07/14/18 at 18:30 Albuterol/ Ipratropium (Duoneb) 3 ml Q2H RESP THERAPY PRN HHN WHEEZING Last administered on 07/21/18 23:06; Admin Dose 3 ML; Start 07/21/18 at 22:00 Amiodarone HCl (Cordarone) 200 mg BID GTB Last administered on 08/04/18 09:47; Admin Dose 200 MG; Start 07/22/18 at 21:00 Citric Acid/ Sodium Citrate (Bicitra) 60 ml DAILY PO Last administered on 08/04/18 09:47; Admin Dose 60 ML; Start 07/23/18 at 09:00 Amikacin Sulfate 400 mg/Dextrose 101.6 ml @ 101.6 mls/ hr Q5D IVPB Last administered on 07/30/18 23:17; Admin Dose 101.6 MLS/HR; Start 07/30/18 at 23:00 Levothyroxine Sodium (Synthroid) 75 mcg DAILY@06 GTB Last administered on 08/04/18 05:24; Admin Dose 75 MCG; Start 07/28/18 at 06:00 Nystatin (Nystatin Powder) 1 applic BID TOP Last administered on 08/04/18 09:47; Admin Dose 1 APPLIC; Start 07/28/18 at 17:30 IV Flush (NS 10 ml) 10 ml Q8 PRN IV IV PROTOCOL; Start 07/28/18 at 19:00 Phenytoin (Dilantin) 200 mg Q12H IV Last administered on 08/04/18 09:47; Admin Dose 200 MG; Start 07/29/18 at 20:00 Amlodipine Besylate (Norvasc) 2.5 mg BID PO Last administered on 08/04/18 09:4 7; Admin Dose 2.5 MG; Start 07/30/18 at 21:00 Lorazepam (Ativan) 0.5 mg Q4 PRN IV agitation; Start 08/02/18 at 15:00 Evangelista Scanlon DO Aug 04, 2018 16:10
--- NOTE | 2018-08-04 16:31 | CONS ---
Assessment/Plan Assessment/Plan Hospital Course (Demo Recall) # sepsis, leukocytosis, SIRS, pulmonary, cardiac - recurrent leukocytosis due to bacteremia (below), improved - s/p septic shock due to pneumonia and C diff colitis - acute on chronic hypoxic respiratory failure, persistent - s/p reintubation 05/12/2018 - s/p re-do trach on 05/29/2018 - recurrent colonization of the anterior neck wound with ESBL+kleb, MRSA, GBS, corynebacteria on 05/06/2018 - h/o pneumonia vs. colonization of the airway by pseudomonas and ESBL+klebsiella - h/o possible, recurrent HCAP due to pseudomonas and ESBL+klebsiella - h/o recurrent HCAP due to MRSA and Enterobacter (culture of tracheal aspirate on 07/16/2017 that was collected at [facility]) . Pt took vancomycin and ceftazidime - h/o decannulation prior to admission - h/o tracheostomy on 06/11/2017 - h/o SIRS from UGIB in 2018 - h/o thoracentesis on 07/18/2017, transudative (protein <2, LDH 279) - h/o bleeding from the trach site in 2018 - h/o septic shock due to pneumonia, ARDS, bacteremia, fungemia in 2018 - h/o ARDS in 2018 - h/o smoking - COPD - h/o ILD per medical record - h/o PAF, improved - echodense structure in posterior leafleat region, differential includes calcification vs vegetation per 2D echo 07/15/2018 # GI - s/p possible ileus or enterocolitis on CT abd/pel 06/15/2018-->follow up CT on 07/15/2018 showed no evidence of urolithiasis, obstructive uropathy or diverticulitis; it showed small to moderate ascites - C diff colitis, diagnosed on 05/11/2018. Pt is on pGT vancomycin (05/11/2018-); Pt previously took IV metronidazole (05/11/2018-05/29/2018; restart 05/30/2018- 06/05/18) too - Pt had multiple negative C. diff tests at [facility] and at OSH in the past; none was positive until 05/11/2018 - dysphagia - h/o PEG placement 06/13/2018 - protein calorie malnutrition - h/o coffee ground emesis/UGIB on 12/23/2017 due to deep ulceration of distal esophagus and gastritis on EGD 12/26/2017. No e/o H. pylori - h/o possible appendicitis on CT on 11/22/2017, Pt took ertapenem (11/24/2017- 12/01/2017) - h/o extensive adhesions lower abdominal and pelvis between small bowel to each other and to colon and to abdominal wall, anterior pelvic wall chronic abscess secondary to probably an old perforated diverticulitis, torsion of small bowel around these dense adhesion causing multiple obstructive points - h/o laparoscopic exploration and extensive lysis of adhesions and drainage of anterior pelvic wall abscess 09/16/2017. Cultures were negative, no e/o malignancy. Pt took pip/tazo (09/16/2017-09/26/2017) - h/o EGD and exchange of PEG on 09/01/2017 - h/o partial obstruction mid jejunum in L anterior central pelvis with suggestion of a 3 cm soft tissue mass on CT 08/28/2017 - h/o internal stomal deep ulcer behind the internal bumper, gastritis and esophagitis, Rodriguez's cannot be ruled out, per EGD with biopsy 07/23/2017 - h/o GIB s/p flex sig showed polyp; stool OB negative on 06/29/17 - h/o stool OB positive status - h/o SBO and ileus due to pain meds - h/o mildly elevated CEA # renal/ - s/p recurrent UTI due to pseudomonas (culture on 07/09/2018)-->Garza catheter was replaced on 07/14/2018 - s/p UTI due to MDR, CRE-klebsiella on 06/15/2018. S/p renally dosed amikacin for klebsiella in her urine culture (06/17-06/22/2018) - s/p UTI due to pseudomonas and ESBL+klebsiella on 06/09/2018, Pt took one dose of fosfomycin on 06/10/2018 and cipro 06/12-06/15/2018 - anasarca - started on HD on 05/15/2018, via Juan in R groin - recurrent NATHAN on CKD - 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 Her strain of CRE was sensitive to colistin, Avycaz, and Vabomere but resistant to Zerbaxa (reported on 05/19/2018) - metabolic acidosis - adrenal insufficiency - h/o vaginal bleed in 2018 - h/o colonization of urinary tract by ESBL+klebsiella, VRE - h/o recurrent, symptomatic UTI due to carbapenem-resistant kleb (MDR strain) per urine culture 10/04/17, 10/09/17, 10/21/2017, P took colistin (10/09/2017- 10/15/2017), fosfomycin for carbapenemase-producing klebsiella and VRE on 10/25/2017 and 10/28/2017 - h/o funguria - h/o urinary retention # bloodstream infections - bacteremia d/t pseudomonas aeruginosa 07/09/18, 07/10/18, 07/11/18, 07/12/18, 07/13/18, 07/15/18, 07/17/18. This is associated with PICC because the blood culture from PICC and phlebotomy on 07/13/2018 both grew the same bacteria. The tip of PICC that was removed on 07/14/18 also grew the same bacteria in culture. Latest Pseudomonas from blood culture on 07/17/2018 was susceptible to amikacin, gentamicin, tobramycin, colistin, and Zerbaxa (resistant to Avycaz) 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; Pt declin ed surgery for MVR per outside medical records; TTE 07/01/17 did not mention any thrombus; s/p voriconazole (05/25/2017-08/01/2017) - h/o bacteremia due to MSSA and proteus s/p ceftriaxone; repeat blood cultures were negative on 06/14/2017 - s/p RUE PICC line placement 07/28/2018 # musculoskeletal and dermatological - dry skin - chronic wound of LLE - h/o infection of wound of LLE - h/o debridement of wound of LLE on 08/06/2017 - h/o recurrent herpes labialis, Pt took acyclovir, valacyclovir - h/o Osler's nodes (eschar) of R toes with erythematous skin; desquamation of the skin and open lacerations on R plantar foot. improved. Probable manifestation of endocarditis. Pt declined MRI on 08/06/2017 - h/o infection of R toes due to pseudomonas. coagulase negative Staph likely a colonizer - h/o intertrigo of the groin, resolved with nystatin powder - h/o scabies (proven by skin scraping), locally crusted lesion over L scapula, s/p permethrin cream and pGT ivermectin on 08/11/2017, 08/12/2017, 08/19/2017. Repeat skin scraping on 08/21/2017 was negative for scabies # psych, neuro - chronic toxic metabolic encephalopathy, progressing - MRI brain on 07/26/2018 showed no acute intracranial pathology - seizure activity per EEG 07/27/18 - on Dilantin - decreased hearing b/l - h/o critical illness polyneuropathy - anxiety/depression, bipolar d/o, seen by Psychiatry in the past - chronic pain syndrome - h/o medical non-compliance: she would refuse her medications, treatment and straight catheterization in 2018 - complete opacification of the bilateral mastoid air cells per MRI Brain on 07/26/2018 # hematological, vascular - chronic anemia requiring blood transfusion intermittently - macrocytic anemia - aneurysmal dilatation of the distal aorta visualized on CT 06/15/2018 - PVD # other - hypothyroidism with elevated TSH - on Synthroid recommendations: - Continue amikacin IV (07/09/2018-). Pt had a strain of pseudomonas that was resistant to all except for aminoglycoside - Continue renally dosed cefepime (07/14/2018-); Pt needs double coverage because amikacin alone has not cleared her bacteremia. Some strains of pseudomonas she had were pansensitive while other strains of pseudomonas were resistant to many antibiotics (MDR). Most recent pseudomonas from was sensitive to amikacin, gentamicin, tobramicin, colistin, ceftolozane/tazobactam, resistant to ceftaz/avibactam. Dr. Doyle d/w Pharmacy on 07/31/18: we will request ceftolozane/tazobactam if Pt appears to have hearing problems with amikacin or other side effects - we recommend 6 weeks of antibiotics for probable endocarditis - continue vancomycin pGT (07/09/18-) while on IV antibiotics given h/o C. diff. Pt completed IV metronidazole (07/09/18-07/15/18) - discussed with the rifle case repairer. Audiology testing is not available at [facility]. In that case, I recommend ENT consult to assess her hearing. If Pt's hearing is diminished, will stop amikacin and request an alternative anti-pseudomonal antibiotic management d/w Pt's JAYANT Nelson and rifle case repairer Consultation Date/Type/Reason Admit Date/Time May 06, 2018 at 17:38 Initial Consult Date 05/10/18 Type of Consult ID Requesting Provider: ROLAND GIRON MD Date/Time of Note DATE: 08/04/18 TIME: 16:30 24 HR Interval Summary Subjective hx not possible: pt non-verbal Exam/Review of Systems Exam Vitals Vital Signs Date Temp Pulse Resp B/P (MAP) Pulse Ox O2 O2 Flow FiO2 Time Delivery Rate 08/04/18 73 24 95 30 13:30 08/04/18 98.2 147/80 12:43 (102) 08/01/18 Mechanical 15:26 Ventilator Trach Collar Intake and Output 08/03/18 08/03/18 08/04/18 1515:00 23:00 07:00 IntakeIntake Total 440 ml 500 ml OutputOutput Total 1000 ml 800 ml BalanceBalance -560 ml -300 ml Constitutional: non-verbal, frail Psych: confusion Head: normocephalic, atraumatic Eyes: nl conjunctiva, nl lids, nl sclera ENMT: nl external ears & nose, nl nasal mucosa & septum, other (dry mucus membranes) Neck: other (trach) Respiratory: crackles/rales, diminished breath sounds Cardiovascular: regular rate and rhythm, nl pulses Gastrointestinal: soft, non-tender; No distended, No tender Musculoskeletal: nl extremities to inspection Extremities: edema Neurological: confused, lethargic Skin: nl turgor Results Result Diagram: 08/03/18 0634 08/04/18 0615 Results 24hrs Laboratory Tests Test 08/04/18 06:15 Sodium Level 137 Potassium Level 3.6 Chloride Level 107 Carbon Dioxide Level 19 L Anion Gap 11 Blood Urea Nitrogen 96 H Creatinine 2.34 H Est Glomerular Filtrat Rate mL/min Glucose Level 97 Calcium Level 9.4 Phosphorus Level 3.1 Magnesium Level 1.6 L Phenytoin (Dilantin) Level 9.0 L Medications Medication Current Medications IV Flush (NS 10 ml) 10 ml PRN IV ; Start 05/06/18 at 20:30 Zinc Sulfate (Zinc Sulfate) 220 mg DAILY GTB Last administered on 08/04/18 09:47; Admin Dose 220 MG; Start 05/07/18 at 09:00 Ondansetron HCl (Zofran Tab) 4 mg Q6H PRN GTB NAUSEA AND/OR VOMITING Last administered on 05/31/18 16:47; Admin Dose 4 MG; Start 05/07/18 at 00:15 Multivitamins (Multivitamin) 30 ml DAILY GTB Last administered on 08/04/18 09:47; Admin Dose 30 ML; Start 05/07/18 at 09:00 [facility]isc[facility] This patient goldman... PRN PRN XX WOUND CARE; Start 05/09/18 at 17:00 Clonidine (Catapres) 0.1 mg Q6H PRN PO ELEVATED BLOOD PRESSURE Last administered on 08/03/18 20:27; Admin Dose 0.1 MG; Start 06/03/18 at 03:30 Bumetanide (Bumex) 1 mg BID DIURETICS GTB Last administered on 08/04/18 05:24; Admin Dose 1 MG; Start 06/11/18 at 18:00 Dicyclomine HCl (Bentyl) 20 mg Q8 PO Last administered on 08/04/18 15:52; Admin Dose 20 MG; Start 06/27/18 at 22:00 Cholestyramine Resin (Questran Light) 4 gm 0600,1200,1800,2300 GTB Last administered on 08/04/18 11:51; Admin Dose 4 GM; Start 06/27/18 at 18:00 Amikacin Sulfate (Amikacin Iv Per Pharmacy) 1 ea NOTE XX ; Start 07/09/18 at 17:30 Vancomycin HCl (Vancomycin Oral Syringe) 125 mg Q6 GTB Last administered on 08/04/18 11:51; Admin Dose 125 MG; Start 07/09/18 at 18:00 Epoetin Zen-epbx (Retacrit (Non-Esrd)) 10,000 unit MoWeFr@1700 SC Last administered on 08/03/18 18:08; Admin Dose 10,000 UNIT; Start 07/13/18 at 17:00 Cefepime HCl 50 ml @ 100 mls/hr Q24H IVPB Last administered on 08/03/18 17:53; Admin Dose 100 MLS/HR; Start 07/14/18 at 18:30 Albuterol/ Ipratropium (Duoneb) 3 ml Q2H RESP THERAPY PRN HHN WHEEZING Last administered on 07/21/18 23:06; Admin Dose 3 ML; Start 07/21/18 at 22:00 Amiodarone HCl (Cordarone) 200 mg BID GTB Last administered on 08/04/18 09:47; Admin Dose 200 MG; Start 07/22/18 at 21:00 Citric Acid/ Sodium Citrate (Bicitra) 60 ml DAILY PO Last administered on 08/04/18 09:47; Admin Dose 60 ML; Start 07/23/18 at 09:00 Amikacin Sulfate 400 mg/Dextrose 101.6 ml @ 101.6 mls/ hr Q5D IVPB Last administered on 07/30/18 23:17; Admin Dose 101.6 MLS/HR; Start 07/30/18 at 23:00 Levothyroxine Sodium (Synthroid) 75 mcg DAILY@06 GTB Last administered on 08/04/18 05:24; Admin Dose 75 MCG; Start 07/28/18 at 06:00 Nystatin (Nystatin Powder) 1 applic BID TOP Last administered on 08/04/18 09:47; Admin Dose 1 APPLIC; Start 07/28/18 at 17:30 IV Flush (NS 10 ml) 10 ml Q8 PRN IV IV PROTOCOL; Start 07/28/18 at 19:00 Phenytoin (Dilantin) 200 mg Q12H IV Last administered on 08/04/18 09:47; Admin Dose 200 MG; Start 07/29/18 at 20:00 Amlodipine Besylate (Norvasc) 2.5 mg BID PO Last administered on 08/04/18 09:47; Admin Dose 2.5 MG; Start 07/30/18 at 21:00 Lorazepam (Ativan) 0.5 mg Q4 PRN IV agitation; Start 08/02/18 at 15:00 Metoprolol Tartrate (Lopressor) 75 mg Q8 GTB ; Start 08/04/18 at 22:00 CELESTINE MURPHY M.D. Aug 04, 2018 16:31
--- NOTE | 2018-08-04 17:06 | PN ---
DATE: 08/04/2018 SUBJECTIVE: Patient stable, no events overnight. OBJECTIVE: VITAL SIGNS: Blood pressure is 152/88, pulse 69, respiration 18, temperature 98.6. HEENT: Head is normocephalic. NECK: Supple. HEART: Regular rate. LUNGS: Show diminished breath sounds at the base. ABDOMEN: Soft, nontender to palpation without rebound or guarding. EXTREMITIES: Negative for clubbing, cyanosis. Positive edema. DERMATOLOGIC: No rashes. MUSCULOSKELETAL: No joint effusion. NEUROLOGIC: No change in exam. MEDICATIONS: Have been reviewed. LABORATORY DATA: Has been reviewed. IMAGING STUDIES: Have been reviewed. ASSESSMENT AND PLAN: 1. Nonoliguric acute kidney injury with previous baseline creatinine of 2.0 mg/dL. Etiology of acut e kidney injury secondary to acute tubular necrosis. Patient is status post hemodialysis. The patie nt's renal function has improved. Creatinine is stabilizing around 2 to 2.5 mg/dL. At this point, olaf alvarado current treatment support, currently dose all meds. 2. Volume overload secondary to diastolic heart failure, chronic kidney disease. Continue Bumex. M onitor I's and O's closely. 3. Anemia. Continue to monitor hemoglobin and hematocrit levels. Continue Epogen. 4. Mineral bone disorder. Monitor calcium and phosphorus levels. 5. Ventilator-dependent respiratory failure. Vent settings and ABG was reviewed. Continue to monit or. 6. Sepsis, endocarditis. The patient is to complete antibiotic course. 7. Dysphagia. Continue tube feeding. 8. Encephalopathy. 9. History of Clostridium difficile. 10. Lower extremity wounds. Continue wound care. 11. Hypokalemia and hypomagnesemia. Continue to monitor and replete as needed. Dictated By: JEANA BANSAL DO NR/NTS Conf#: [id number] DID#: [id number] CC: ROLAND GIRON MD;*End*
[2018-08-04] MEDS: CEFEPIME 2GM/50 ML (PMX) 50 ML IVPB SCH (18:22)
[2018-08-04] MEDS: AMIKACIN 400 MG in DEXTROSE 5% 100 ML IVPB SCH (23:53)
[2018-08-05] VITALS (25 sets, daily range): BP systolic 129–147; BP diastolic 65–85; PULSE 63–76; RESP 18–27
[2018-08-05] MEDS: BUMETANIDE 1 MG TAB GTB SCH ×2 (05:12→17:23)
[2018-08-05] MEDS: DICYCLOMINE 10 MG CAP PO SCH ×3 (05:12→21:39)
[2018-08-05] MEDS: METOPROLOL 50 MG TAB GTB SCH ×3 (05:13→21:40)
[2018-08-05] MEDS: LEVOTHYROXINE 75 MCG TAB GTB SCH (05:14)
[2018-08-05] MEDS: VANCOMYCIN HCL 250 MG/5ML POSYG GTB SCH ×4 (05:25→23:52)
[2018-08-05] MEDS: CHOLESTYRAMINE (LIGHT) 4 GM PACKET GTB SCH ×4 (05:25→23:52)
--- NOTE | 2018-08-05 09:44 | HP ---
DATE OF ADMISSION: 05/06/2018 There was question of some hearing loss. On examination, there is no significant cerumen in either e ar. The eardrums are intact. There might be fluid in the left but definitely none on the right. IMPRESSION: Hearing loss. PLAN: At this point, she needs a hearing test. If there are any questions or concerns, please free to reconsult at any time. Dictated By: HAMLET CUNNINGHAM MD DM/NTS Conf#: [id number] DID#: [id number] CC: QUINTEN UMAÑA MD; ROLAND GIRON MD;*EndCC*
[2018-08-05] MEDS: AMLODIPINE 2.5 MG TAB PO SCH ×2 (09:48→21:40)
[2018-08-05] MEDS: ZINC SULFATE 220 MG CAP GTB SCH (09:49)
[2018-08-05] MEDS: MULTIVITAMINS 30 ML CUP GTB SCH (09:49)
[2018-08-05] MEDS: PHENYTOIN 100 MG INJ IV SCH ×2 (09:49→21:39)
[2018-08-05] MEDS: AMIODARONE 200 MG TAB GTB SCH ×2 (09:49→21:40)
[2018-08-05] MEDS: BALSAM PERU/CASTOR OIL 60 GM TUBE TOP SCH ×2 (09:50→21:42)
[2018-08-05] MEDS: CITRIC ACID/NA CITRATE 30 ML CUP PO SCH (09:50)
[2018-08-05] MEDS: NYSTATIN 30 GM POWDER BTL TOP SCH ×2 (09:50→21:42)
--- NOTE | 2018-08-05 11:01 | CONS ---
Assessment/Plan Assessment/Plan Hospital Course (Demo Recall) # sepsis, leukocytosis, SIRS, pulmonary, cardiac - recurrent leukocytosis due to bacteremia (below), improved - s/p septic shock due to pneumonia and C diff colitis - acute on chronic hypoxic respiratory failure, persistent - s/p reintubation 05/12/2018 - s/p re-do trach on 05/29/2018 - recurrent colonization of the anterior neck wound with ESBL+kleb, MRSA, GBS, corynebacteria on 05/06/2018 - h/o pneumonia vs. colonization of the airway by pseudomonas and ESBL+klebsiella - h/o possible, recurrent HCAP due to pseudomonas and ESBL+klebsiella - h/o recurrent HCAP due to MRSA and Enterobacter (culture of tracheal aspirate on 07/16/2017 that was collected at [facility]) . Pt took vancomycin and ceftazidime - h/o decannulation prior to admission - h/o tracheostomy on 06/11/2017 - h/o SIRS from UGIB in 2018 - h/o thoracentesis on 07/18/2017, transudative (protein <2, LDH 279) - h/o bleeding from the trach site in 2018 - h/o septic shock due to pneumonia, ARDS, bacteremia, fungemia in 2018 - h/o ARDS in 2018 - h/o smoking - COPD - h/o ILD per medical record - h/o PAF, improved - echodense structure in posterior leafleat region, differential includes calcification vs vegetation per 2D echo 07/15/2018 # GI - s/p possible ileus or enterocolitis on CT abd/pel 06/15/2018-->follow up CT on 07/15/2018 showed no evidence of urolithiasis, obstructive uropathy or diverticulitis; it showed small to moderate ascites-->CT on 08/04/2018 showed colonic obstruction, mild to moderate ascites, diffuse gallbladder wall thickening - C diff colitis, diagnosed on 05/11/2018. Pt is on pGT vancomycin (05/11/2018-); Pt previously took IV metronidazole (05/11/2018-05/29/2018; restart 05/30/2018- 06/05/18) too - Pt had multiple negative C. diff tests at [facility] and at OSH in the past; none was positive until 05/11/2018 - dysphagia - h/o PEG placement 06/13/2018 - protein calorie malnutrition - h/o coffee ground emesis/UGIB on 12/23/2017 due to deep ulceration of distal esophagus and gastritis on EGD 12/26/2017. No e/o H. pylori - h/o possible appendicitis on CT on 11/22/2017, Pt took ertapenem (11/24/2017- 12/01/2017) - h/o extensive adhesions lower abdominal and pelvis between small bowel to each other and to colon and to abdominal wall, anterior pelvic wall chronic abscess secondary to probably an old perforated diverticulitis, torsion of small bowel around these dense adhesion causing multiple obstructive points - h/o laparoscopic exploration and extensive lysis of adhesions and drainage of anterior pelvic wall abscess 09/16/2017. Cultures were negative, no e/o malignancy. Pt took pip/tazo (09/16/2017-09/26/2017) - h/o EGD and exchange of PEG on 09/01/2017 - h/o partial obstruction mid jejunum in L anterior central pelvis with suggestion of a 3 cm soft tissue mass on CT 08/28/2017 - h/o internal stomal deep ulcer behind the internal bumper, gastritis and esophagitis, Rodriguez's cannot be ruled out, per EGD with biopsy 07/23/2017 - h/o GIB s/p flex sig showed polyp; stool OB negative on 06/29/17 - h/o stool OB positive status - h/o SBO and ileus due to pain meds - h/o mildly elevated CEA # renal/ - s/p recurrent UTI due to pseudomonas (culture on 07/09/2018)-->Garza catheter was replaced on 07/14/2018 - s/p UTI due to MDR, CRE-klebsiella on 06/15/2018. S/p renally dosed amikacin for klebsiella in her urine culture (06/17-06/22/2018) - s/p UTI due to pseudomonas and ESBL+klebsiella on 06/09/2018, Pt took one dose of fosfomycin on 06/10/2018 and cipro 06/12-06/15/2018 - anasarca - started on HD on 05/15/2018, via Juan in R groin - recurrent NATHAN on CKD - 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 Her strain of CRE was sensitive to colistin, Avycaz, and Vabomere but resistant to Zerbaxa (reported on 05/19/2018) - metabolic acidosis - adrenal insufficiency - h/o vaginal bleed in 2018 - h/o colonization of urinary tract by ESBL+klebsiella, VRE - h/o recurrent, symptomatic UTI due to carbapenem-resistant kleb (MDR strain) per urine culture 10/04/17, 10/09/17, 10/21/2017, P took colistin (10/09/2017- 10/15/2017), fosfomycin for carbapenemase-producing klebsiella and VRE on 10/25/2017 and 10/28/2017 - h/o funguria - h/o urinary retention # bloodstream infections - bacteremia d/t pseudomonas aeruginosa 07/09/18, 07/10/18, 07/11/18, 07/12/18, 07/13/18, 07/15/18, 07/17/18. This is associated with PICC because the blood culture from PICC and phlebotomy on 07/13/2018 both grew the same bacteria. The tip of PICC that was removed on 07/14/18 also grew the same bacteria in culture. - Some strains of pseudomonas she had were pansensitive while other strains of pseudomonas were resistant to many antibiotics (MDR). - Pt's strain of pseudomonas on 07/09/2018 was resistant to all except for aminoglycosides (amikacin, gentamicin, tobramycin), colistin (IRASEMA=1, reported to be susceptible) and ceftolozane/tazobactam, but resistant to ceftaz/avibactam - Pt's strain of pseudomonas on was resistant to all except for aminoglycosides (amikacin, gentamicin, tobramycin), colistin (IRASEMA=3, reported to be susceptible) and ceftolozane/tazobactam, but resistant to ceftaz/avibactam 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; Pt declined surgery for MVR per outside medical records; TTE 07/01/17 did not mention any thrombus; s/p voriconazole (05/25/2017-08/01/2017) - h/o bacteremia due to MSSA and proteus s/p ceftriaxone; repeat blood cultures were negative on 06/14/2017 - s/p RUE PICC line placement 07/28/2018 # musculoskeletal and dermatological - dry skin - chronic wound of LLE - h/o infection of wound of LLE - h/o debridement of wound of LLE on 08/06/2017 - h/o recurrent herpes labialis, Pt took acyclovir, valacyclovir - h/o Osler's nodes (eschar) of R toes with erythematous skin; desquamation of the skin and open lacerations on R plantar foot. improved. Probable m anifestation of endocarditis. Pt declined MRI on 08/06/2017 - h/o infection of R toes due to pseudomonas. coagulase negative Staph likely a colonizer - h/o intertrigo of the groin, resolved with nystatin powder - h/o scabies (proven by skin scraping), locally crusted lesion over L scapula, s/p permethrin cream and pGT ivermectin on 08/11/2017, 08/12/2017, 08/19/2017. Repeat skin scraping on 08/21/2017 was negative for scabies # psych, neuro - chronic toxic metabolic encephalopathy, progressing - MRI brain on 07/26/2018 showed no acute intracranial pathology - seizure activity per EEG 07/27/18 - on Dilantin - decreased hearing b/l - h/o critical illness polyneuropathy - anxiety/depression, bipolar d/o, seen by Psychiatry in the past - chronic pain syndrome - h/o medical non-compliance: she would refuse her medications, treatment and straight catheterization in 2018 - complete opacification of the bilateral mastoid air cells per MRI Brain on 07/26/2018 # hematological, vascular - chronic anemia requiring blood transfusion intermittently - macrocytic anemia - aneurysmal dilatation of the distal aorta visualized on CT 06/15/2018 - PVD # other - hypothyroidism with elevated TSH - on Synthroid recommendations: - Pt was evaluated by ENT on 08/04/2018; audiology exam not available. At this time, I recommend using an alternative agent for pseudomonas and d/c amikacin IV (07/09/2018-) because of concern for her hearing - start renally dosed colistin (08/05/2018-) - Continue renally dosed IV cefepime (07/14/2018-); I recommend double coverage because amikacin alone did not clear her bacteremia. - we recommend 6 weeks of antibiotics for probable endocarditis from the first day of negative blood culture, i.e. 07/18/2018 through 08/29/2018 - continue vancomycin pGT (07/09/18-) while on IV antibiotics given h/o C. diff. Pt completed IV metronidazole (07/09/18-07/15/18) management d/w PharmD Acevedos the total time I took to care for this Pt today was from 1015 to 1100 Consultation Date/Type/Reason Admit Date/Time May 06, 2018 at 17:38 Initial Consult Date 05/10/18 Type of Consult ID Requesting Provider: ROLAND GIRON MD Date/Time of Note DATE: 08/05/18 TIME: 10:56 24 HR Interval Summary Subjective hx not possible: pt non-verbal Exam/Review of Systems Exam Vitals Vital Signs Date Temp Pulse Resp B/P (MAP) Pulse Ox O2 O2 Flow FiO2 Time Delivery Rate 08/05/18 98.7 76 20 140/76 99 Mechanical 08:33 (97) Ventilator 08/05/18 30 05:42 Intake and Output 08/04/18 08/04/18 08/05/18 1515:00 23:00 07:00 OutputOutput Total 800 ml 500 ml BalanceBalance -800 ml -500 ml Constitutional: non-verbal, frail, obese Psych: confusion Head: normocephalic, atraumatic Eyes: nl conjunctiva, nl lids, nl sclera ENMT: nl nasal mucosa & septum, mucosa pink and moist, other (Pt would look at me when I call her name but does not respond verbally) Neck: other (trach) Respiratory: crackles/rales Cardiovascular: regular rate and rhythm, nl pulses, edema Gastrointestinal: soft, non-tender, distended, surgical scars; No mass Genitourinary - Female: other (FC) Musculoskeletal: No swelling Extremities: edema Neurological: lethargic Skin: ecchymosis Results Result Diagram: 08/05/18 0827 08/05/18 0827 Results 24hrs Laboratory Tests Test 08/05/18 08:27 White Blood Count 9.0 Red Blood Count 2.60 L Hemoglobin 8.8 L Hematocrit 29.3 L Mean Corpuscular Volume 112.7 H Mean Corpuscular Hemoglobin 33.8 H Mean Corpuscular Hemoglobin Concent 30.0 L Red Cell Distribution Width 24.3 H Platelet Count 156 Mean Platelet Volume 10.9 H Immature Granulocytes % 0.400 Neutrophils % 77.4 H Lymphocytes % 10.0 L Monocytes % 7.5 Eosinophils % 4.3 Basophils % 0.4 Nucleated Red Blood Cells % 0.2 H Immature Granulocytes # 0.040 H Neutrophils # 7.0 Lymphocytes # 0.9 Monocytes # 0.7 Eosinophils # 0.4 Basophils # 0.0 Nucleated Red Blood Cells # 0.0 Sodium Level 139 Potassium Level 3.7 Chloride Level 103 Carbon Dioxide Level 20 L Anion Gap 16 H Blood Urea Nitrogen 93 H Creatinine 2.26 H Est Glomerular Filtrat Rate mL/min Glucose Level 121 Calcium Level 9.1 Phosphorus Level 3.1 Magnesium Level 1.9 Medications Medication Current Medications IV Flush (NS 10 ml) 10 ml PRN IV ; Start 05/06/18 at 20:30 Zinc Sulfate (Zinc Sulfate) 220 mg DAILY GTB Last administered on 08/05/18 09:49; Admin Dose 220 MG; Start 05/07/18 at 09:00 Ondansetron HCl (Zofran Tab) 4 mg Q6H PRN GTB NAUSEA AND/OR VOMITING Last adm inistered on 05/31/18at 16:47; Admin Dose 4 MG; Start 05/07/18 at 00:15 Multivitamins (Multivitamin) 30 ml DAILY GTB Last administered on 08/05/18at 09:49; Admin Dose 30 ML; Start 05/07/18 at 09:00 Miscellaneous Information (Pending Santyl Order For Wound Care) This patient goldman... PRN PRN XX WOUND CARE; Start 05/09/18 at 17:00 Clonidine (Catapres) 0.1 mg Q6H PRN PO ELEVATED BLOOD PRESSURE Last adm inistered on 08/03/18at 20:27; Admin Dose 0.1 MG; Start 06/03/18 at 03:30 Bumetanide (Bumex) 1 mg BID DIURETICS GTB Last administered on 08/05/18at 05:12; Admin Dose 1 MG; Start 06/11/18 at 18:00 Dicyclomine HCl (Bentyl) 20 mg Q8 PO Last administered on 08/05/18 05:12; Admin Dose 20 MG; Start 06/27/18 at 22:00 Cholestyramine Resin (Questran Light) 4 gm 0600,1200,1800,2300 GTB Last administered on 08/05/18 05:25; Admin Dose 4 GM; Start 06/27/18 at 18:00 Amikacin Sulfate (Amikacin Iv Per Pharmacy) 1 ea NOTE XX ; Start 07/09/18 at 17:30 Vancomycin HCl (Vancomycin Oral Syringe) 125 mg Q6 GTB Last administered on 08/05/18 05:25; Admin Dose 125 MG; Start 07/09/18 at 18:00 Epoetin Zen-epbx (Retacrit (Non-Esrd)) 10,000 unit MoWeFr@1700 SC Last administered on 08/03/18 18:08; Admin Dose 10,000 UNIT; Start 07/13/18 at 17:00 Cefepime HCl 50 ml @ 100 mls/hr Q24H IVPB Last administered on 08/04/18 18:22; Admin Dose 100 MLS/HR; Start 07/14/18 at 18:30 Albuterol/ Ipratropium (Duoneb) 3 ml Q2H RESP THERAPY PRN HHN WHEEZING Last administered on 07/21/18 23:06; Admin Dose 3 ML; Start 07/21/18 at 22:00 Amiodarone HCl (Cordarone) 200 mg BID GTB Last administered on 08/05/18 09:49; Admin Dose 200 MG; Start 07/22/18 at 21:00 Citric Acid/ Sodium Citrate (Bicitra) 60 ml DAILY PO Last administered on 08/05/18 09:50; Admin Dose 60 ML; Start 07/23/18 at 09:00 Amikacin Sulfate 400 mg/Dextrose 101.6 ml @ 101.6 mls/ hr Q5D IVPB Last administered on 08/04/18 23:53; Admin Dose 101.6 MLS/HR; Start 07/30/18 at 23:00 Levothyroxine Sodium (Synthroid) 75 mcg DAILY@06 GTB Last administered on 08/05/18 05:14; Admin Dose 75 MCG; Start 07/28/18 at 06:00 Nystatin (Nystatin Powder) 1 applic BID TOP Last administered on 08/05/18at 09:50; Admin Dose 1 APPLIC; Start 07/28/18 at 17:30 IV Flush (NS 10 ml) 10 ml Q8 PRN IV IV PROTOCOL; Start 07/28/18 at 19:00 Amlodipine Besylate (Norvasc) 2.5 mg BID PO Last administered on 08/05/18at 09:48; Admin Dose 2.5 MG; Start 07/30/18 at 21:00 Lorazepam (Ativan) 0.5 mg Q4 PRN IV agitation; Start 08/02/18 at 15:00 Metoprolol Tartrate (Lopressor) 75 mg Q8 GTB Last administered on 08/05/18at 05:13; Admin Dose 75 MG; Start 08/04/18 at 22:00 Phenytoin (Dilantin) 250 mg Q12@0800,2000 IV Last administered on 08/05/18at 09:49; Admin Dose 250 MG; Start 08/05/18 at 09:00 CELESTINE MURPHY M.D. Aug 05, 2018 11:01
--- NOTE | 2018-08-05 12:53 | PN ---
DATE: 08/05/2018 SUBJECTIVE: The patient is stable, no events overnight. OBJECTIVE: VITAL SIGNS: Blood pressure is 144/81, respirations 18, pulse 69, temperature 98.6. HEENT: Head is normocephalic. NECK: Supple. HEART: Regular rate. LUNGS: Show diminished breath sounds at the base. ABDOMEN: Soft, nontender to palpation without rebound or guarding. EXTREMITIES: Negative for clubbing, cyanosis, positive edema. DERMATOLOGIC: No rashes. MUSCULOSKELETAL: No joint effusion. NEUROLOGIC: No change in exam. MEDICATIONS: Reviewed. LABORATORY DATA: Reviewed. IMAGING STUDIES: Reviewed. ASSESSMENT AND PLAN: 1. Nonoliguric acute kidney injury with previous baseline creatinine of 2.0 mg/dL. Etiology of acut e kidney injury is secondary to acute tubular necrosis. The patient is status post hemodialysis. Re nal function is stabilized. Continue current treatment plan, supportive care, renally dose all medic ations. 2. Volume overload secondary to diastolic heart failure, chronic kidney disease. Continue Bumex. M onitor I's and O's closely. 3. Anemia. Monitor hemoglobin and hematocrit levels. Continue Epogen. 4. Mineral bone disorder. Monitor calcium and phosphorus levels. 5. Ventilator-dependent respiratory failure. Vent settings and ABG was reviewed. Continue to monit or. 6. Sepsis, endocarditis. The patient is completing antibiotic course. 7. Dysphagia. Continue tube feeding. 8. Encephalopathy. Continue to monitor. 9. History of Clostridium difficile. 10. Lower extremity wounds. Continue wound care. 11. Hypokalemia and hypomagnesemia. Continue to monitor and replete as needed. Dictated By: JEANA BANSAL DO NR/NTS Conf#: [id number] DID#: [id number] CC: QUINTEN UMAÑA MD; ROLAND GIRON MD;*EndCC*
--- NOTE | 2018-08-05 12:56 | CONS ---
Assessment/Plan Assessment/Plan Hospital Course (Demo Recall) # sepsis, leukocytosis, SIRS, pulmonary, cardiac - recurrent leukocytosis due to bacteremia (below), improved - s/p septic shock due to pneumonia and C diff colitis - acute on chronic hypoxic respiratory failure, persistent - s/p reintubation 05/12/2018 - s/p re-do trach on 05/29/2018 - recurrent colonization of the anterior neck wound with ESBL+kleb, MRSA, GBS, corynebacteria on 05/06/2018 - h/o pneumonia vs. colonization of the airway by pseudomonas and ESBL+klebsiella - h/o possible, recurrent HCAP due to pseudomonas and ESBL+klebsiella - h/o recurrent HCAP due to MRSA and Enterobacter (culture of tracheal aspirate on 07/16/2017 that was collected at [facility]) . Pt took vancomycin and ceftazidime - h/o decannulation prior to admission - h/o tracheostomy on 06/11/2017 - h/o SIRS from UGIB in 2018 - h/o thoracentesis on 07/18/2017, transudative (protein <2, LDH 279) - h/o bleeding from the trach site in 2018 - h/o septic shock due to pneumonia, ARDS, bacteremia, fungemia in 2018 - h/o ARDS in 2018 - h/o smoking - COPD - h/o ILD per medical record - h/o PAF, improved - echodense structure in posterior leafleat region, differential includes calcification vs vegetation per 2D echo 07/15/2018 # GI - s/p possible ileus or enterocolitis on CT abd/pel 06/15/2018-->follow up CT on 07/15/2018 showed no evidence of urolithiasis, obstructive uropathy or diverticulitis; it showed small to moderate ascites-->CT on 08/04/2018 showed colonic obstruction, mild to moderate ascites, diffuse gallbladder wall thickening - C diff colitis, diagnosed on 05/11/2018. Pt is on pGT vancomycin (05/11/2018-); Pt previously took IV metronidazole (05/11/2018-05/29/2018; restart 05/30/2018- 06/05/18) too - Pt had multiple negative C. diff tests at [facility] and at OSH in the past; none was positive until 05/11/2018 - dysphagia - h/o PEG placement 06/13/2018 - protein calorie malnutrition - h/o coffee ground emesis/UGIB on 12/23/2017 due to deep ulceration of distal esophagus and gastritis on EGD 12/26/2017. No e/o H. pylori - h/o possible appendicitis on CT on 11/22/2017, Pt took ertapenem (11/24/2017- 12/01/2017) - h/o extensive adhesions lower abdominal and pelvis between small bowel to each other and to colon and to abdominal wall, anterior pelvic wall chronic abscess secondary to probably an old perforated diverticulitis, torsion of small bowel around these dense adhesion causing multiple obstructive points - h/o laparoscopic exploration and extensive lysis of adhesions and drainage of anterior pelvic wall abscess 09/16/2017. Cultures were negative, no e/o malignancy. Pt took pip/tazo (09/16/2017-09/26/2017) - h/o EGD and exchange of PEG on 09/01/2017 - h/o partial obstruction mid jejunum in L anterior central pelvis with suggestion of a 3 cm soft tissue mass on CT 08/28/2017 - h/o internal stomal deep ulcer behind the internal bumper, gastritis and esophagitis, Rodriguez's cannot be ruled out, per EGD with biopsy 07/23/2017 - h/o GIB s/p flex sig showed polyp; stool OB negative on 06/29/17 - h/o stool OB positive status - h/o SBO and ileus due to pain meds - h/o mildly elevated CEA # renal/ - s/p recurrent UTI due to pseudomonas (culture on 07/09/2018)-->Garza catheter was replaced on 07/14/2018 - s/p UTI due to MDR, CRE-klebsiella on 06/15/2018. S/p renally dosed amikacin for klebsiella in her urine culture (06/17-06/22/2018) - s/p UTI due to pseudomonas and ESBL+klebsiella on 06/09/2018, Pt took one dose of fosfomycin on 06/10/2018 and cipro 06/12-06/15/2018 - anasarca - started on HD on 05/15/2018, via Juan in R groin - recurrent NATHAN on CKD - 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 Her strain of CRE was sensitive to colistin, Avycaz, and Vabomere but resistant to Zerbaxa (reported on 05/19/2018) - metabolic acidosis - adrenal insufficiency - h/o vaginal bleed in 2018 - h/o colonization of urinary tract by ESBL+klebsiella, VRE - h/o recurrent, symptomatic UTI due to carbapenem-resistant kleb (MDR strain) per urine culture 10/04/17, 10/09/17, 10/21/2017, P took colistin (10/09/2017- 10/15/2017), fosfomycin for carbapenemase-producing klebsiella and VRE on 10/25/2017 and 10/28/2017 - h/o funguria - h/o urinary retention # bloodstream infections - bacteremia d/t pseudomonas aeruginosa 07/09/18, 07/10/18, 07/11/18, 07/12/18, 07/13/18, 07/15/18, 07/17/18. This is associated with PICC because the blood culture from PICC and phlebotomy on 07/13/2018 both grew the same bacteria. The tip of PICC that was removed on 07/14/18 also grew the same bacteria in culture. - Some strains of pseudomonas she had were pansensitive while other strains of pseudomonas were resistant to many antibiotics (MDR). - Pt's strain of pseudomonas on 07/09/2018 was resistant to all except for aminoglycosides (amikacin, gentamicin, tobramycin), colistin (IRASEMA=1, reported to be susceptible) and ceftolozane/tazobactam, but resistant to ceftaz/avibactam - Pt's strain of pseudomonas on was resistant to all except for aminoglycosides (amikacin, gentamicin, tobramycin), colistin (IRASEMA=3, no interpretation) and ceftolozane/tazobactam, but resistant to ceftaz/avibactam 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; Pt declined surgery for MVR per outside medical records; TTE 07/01/17 did not mention any thrombus; s/p voriconazole (05/25/2017-08/01/2017) - h/o bacteremia due to MSSA and proteus s/p ceftriaxone; repeat blood cultures were negative on 06/14/2017 - s/p RUE PICC line placement 07/28/2018 # musculoskeletal and dermatological - dry skin - chronic wound of LLE - h/o infection of wound of LLE - h/o debridement of wound of LLE on 08/06/2017 - h/o recurrent herpes labialis, Pt took acyclovir, valacyclovir - h/o Osler's nodes (eschar) of R toes with erythematous skin; desquamation of the skin and open lacerations on R plantar foot. improved. Probable manifestati on of endocarditis. Pt declined MRI on 08/06/2017 - h/o infection of R toes due to pseudomonas. coagulase negative Staph likely a colonizer - h/o intertrigo of the groin, resolved with nystatin powder - h/o scabies (proven by skin scraping), locally crusted lesion over L scapula, s/p permethrin cream and pGT ivermectin on 08/11/2017, 08/12/2017, 08/19/2017. Repeat skin scraping on 08/21/2017 was negative for scabies # psych, neuro - chronic toxic metabolic encephalopathy, progressing - MRI brain on 07/26/2018 showed no acute intracranial pathology - seizure activity per EEG 07/27/18 - on Dilantin - decreased hearing b/l - h/o critical illness polyneuropathy - anxiety/depression, bipolar d/o, seen by Psychiatry in the past - chronic pain syndrome - h/o medical non-compliance: she would refuse her medications, treatment and straight catheterization in 2018 - complete opacification of the bilateral mastoid air cells per MRI Brain on 07/26/2018 # hematological, vascular - chronic anemia requiring blood transfusion intermittently - macrocytic anemia - aneurysmal dilatation of the distal aorta visualized on CT 06/15/2018 - PVD # other - hypothyroidism with elevated TSH - on Synthroid recommendations: - Pt was evaluated by ENT on 08/04/2018; audiology exam not available. At this time, I recommend using an alternative agent for pseudomonas and d/c amikacin IV (07/09/2018-) because of concern for her hearing - start renally dosed colistin (08/05/2018-); Pt's strain of pseudomonas in her blood culture on 07/17/2018 had IRASEMA of 3 for colistin, which is between sensitive (IRASEMA 2) and intermediate (IRASEMA 4) - Continue renally dosed IV cefepime (07/14/2018-); I recommend double coverage because amikacin alone did not clear her bacteremia. - we recommend 6 weeks of antibiotics for probable endocarditis from the first day of negative blood culture, i.e. 07/18/2018 through 08/29/2018 - Pt has break-through bacteremia, will request its sensitivity to colistin again - I will also recommend repeat transthoracic echo at the end of her antibiotic course - continue vancomycin pGT (07/09/18-) while on IV antibiotics given h/o C. diff. Pt completed IV metronidazole (07/09/18-07/15/18) management d/w PharmD Gideon and Jillian at micro lab the total time I took to care for this Pt today was from 1015 to 1100, 1245 to 1255 Consultation Date/Type/Reason Admit Date/Time May 06, 2018 at 17:38 Initial Consult Date 05/10/18 Type of Consult ID Requesting Provider: ROLAND GIRON MD Date/Time of Note DATE: 08/05/18 TIME: 12:52 Exam/Review of Systems Exam Vitals Vital Signs Date Temp Pulse Resp B/P (MAP) Pulse Ox O2 O2 Flow FiO2 Time Delivery Rate 08/05/18 98.2 74 25 143/71 100 Mechanical 11:52 (95) Ventilator 08/05/18 30 11:05 Intake and Output 08/04/18 08/04/18 08/05/18 1414:59 22:59 06:59 OutputOutput Total 800 ml 500 ml BalanceBalance -800 ml -500 ml Results Result Diagram: 08/05/18 0827 08/05/18 0827 Results 24hrs Laboratory Tests Test 08/05/18 08:27 White Blood Count 9.0 Red Blood Count 2.60 L Hemoglobin 8.8 L Hematocrit 29.3 L Mean Corpuscular Volume 112.7 H Mean Corpuscular Hemoglobin 33.8 H Mean Corpuscular Hemoglobin Concent 30.0 L Red Cell Distribution Width 24.3 H Platelet Count 156 Mean Platelet Volume 10.9 H Immature Granulocytes % 0.400 Neutrophils % 77.4 H Lymphocytes % 10.0 L Monocytes % 7.5 Eosinophils % 4.3 Basophils % 0.4 Nucleated Red Blood Cells % 0.2 H Immature Granulocytes # 0.040 H Neutrophils # 7.0 Lymphocytes # 0.9 Monocytes # 0.7 Eosinophils # 0.4 Basophils # 0.0 Nucleated Red Blood Cells # 0.0 Sodium Level 139 Potassium Level 3.7 Chloride Level 103 Carbon Dioxide Level 20 L Anion Gap 16 H Blood Urea Nitrogen 93 H Creatinine 2.26 H Est Glomerular Filtrat Rate mL/min Glucose Level 121 Calcium Level 9.1 Phosphorus Level 3.1 Magnesium Level 1.9 Medications Medication Current Medications IV Flush (NS 10 ml) 10 ml PRN IV ; Start 05/06/18 at 20:30 Zinc Sulfate (Zinc Sulfate) 220 mg DAILY GTB Last administered on 08/05/18 09:49; Admin Dose 220 MG; Start 05/07/18 at 09:00 Ondansetron HCl (Zofran Tab) 4 mg Q6H PRN GTB NAUSEA AND/OR VOMITING Last administered on 05/31/18at 16:47; Admin Dose 4 MG; Start 05/07/18 at 00:15 Multivitamins (Multivitamin) 30 ml DAILY GTB Last administered on 08/05/18 09:49; Admin Dose 30 ML; Start 05/07/18 at 09:00 Miscellaneous Information (Pending Santyl Order For Wound Care) This patient goldman... PRN PRN XX WOUND CARE; Start 05/09/18 at 17:00 Clonidine (Catapres) 0.1 mg Q6H PRN PO ELEVATED BLOOD PRESSURE Last administered on 08/03/18at 20:27; Admin Dose 0.1 MG; Start 06/03/18 at 03:30 Bumetanide (Bumex) 1 mg BID DIURETICS GTB Last administered on 08/05/18 05:12; Admin Dose 1 MG; Start 06/11/18 at 18:00 Dicyclomine HCl (Bentyl) 20 mg Q8 PO Last administered on 08/05/18 05:12; Admin Dose 20 MG; Start 06/27/18 at 22:00 Cholestyramine Resin (Questran Light) 4 gm 0600,1200,1800,2300 GTB Last administered on 08/05/18 12:02; Admin Dose 4 GM; Start 06/27/18 at 18:00 Vancomycin HCl (Vancomycin Oral Syringe) 125 mg Q6 GTB Last administered on 08/05/18 12:01; Admin Dose 125 MG; Start 07/09/18 at 18:00 Epoetin Zen-epbx (Retacrit (Non-Esrd)) 10,000 unit MoWeFr@1700 SC Last administered on 08/03/18 18:08; Admin Dose 10,000 UNIT; Start 07/13/18 at 17:00 Cefepime HCl 50 ml @ 100 mls/hr Q24H IVPB Last administered on 08/04/18 18: 22; Admin Dose 100 MLS/HR; Start 07/14/18 at 18:30 Albuterol/ Ipratropium (Duoneb) 3 ml Q2H RESP THERAPY PRN HHN WHEEZING Last administered on 07/21/18 23:06; Admin Dose 3 ML; Start 07/21/18 at 22:00 Amiodarone HCl (Cordarone) 200 mg BID GTB Last administered on 08/05/18 09:49; Admin Dose 200 MG; Start 07/22/18 at 21:00 Citric Acid/ Sodium Citrate (Bicitra) 60 ml DAILY PO Last administered on 09:50; Admin Dose 60 ML; Start 07/23/18 at 09:00 Levothyroxine Sodium (Synthroid) 75 mcg DAILY@06 GTB Last administered on 08/05/18 05:14; Admin Dose 75 MCG; Start 07/28/18 at 06:00 Nystatin (Nystatin Powder) 1 applic BID TOP Last administered on 08/05/18 09:50; Admin Dose 1 APPLIC; Start 07/28/18 at 17:30 IV Flush (NS 10 ml) 10 ml Q8 PRN IV IV PROTOCOL; Start 07/28/18 at 19:00 Amlodipine Besylate (Norvasc) 2.5 mg BID PO Last administered on 08/05/18 09:48; Admin Dose 2.5 MG; Start 07/30/18 at 21:00 Lorazepam (Ativan) 0.5 mg Q4 PRN IV agitation; Start 08/02/18 at 15:00 Metoprolol Tartrate (Lopressor) 75 mg Q8 GTB Last administered on 08/05/18at 05:13; Admin Dose 75 MG; Start 08/04/18 at 22:00 Phenytoin (Dilantin) 250 mg Q12@0800,2000 IV Last administered on 08/05/18at 09:49; Admin Dose 250 MG; Start 08/05/18 at 09:00 Colistimethate Sodium 90 mg/ Sodium Chloride 100 ml @ 200 mls/hr Q36H IVPB ; Start 08/05/18 at 13:30; Stop 08/29/18 at 23:45 CELESTINE MURPHY M.D. Aug 05, 2018 12:56
--- NOTE | 2018-08-05 15:29 | CONS ---
Assessment/Plan Assessment/Plan Hospital Course (Demo Recall) Septic as well as hemorrhagic shock, improving Acute respiratory failure status post intubation and repeat tracheostomy Acute blood loss anemia History of respiratory failure status post decannulation Preserved ejection fraction echocardiogram 05/10/2018 Paroxysmal atrial fibrillation Acute kidney injury Presumed mitral valve endocarditis -Antibiotics as per infectious disease -Blood pressure trend overall stable, titrate antihypertensives as needed and continue with holding parameters -Remains in sinus rhythm, continue amiodarone and beta-tin as tolerated -Vent management as per pulmonary -Fluid management and electrolytes as per renal -No anticoagulation given recurrent anemia requiring blood transfusions Consultation Date/Type/Reason Admit Date/Time May 06, 2018 at 17:38 Initial Consult Date 05/10/18 Type of Consult Cardiology Requesting Provider: ROLAND GIRON MD Date/Time of Note DATE: 08/05/18 TIME: 15:28 24 HR Interval Summary Free Text/Dictation Patient seen and examined Exam/Review of Systems Vital Signs Vitals Vital Signs Date Temp Pulse Resp B/P (MAP) Pulse Ox O2 O2 Flow FiO2 Time Delivery Rate 08/05/18 78 25 100 30 13:30 08/05/18 98.2 143/71 Mechanical 11:52 (95) Ventilator Intake and Output 08/04/18 08/04/18 08/05/18 1515:00 23:00 07:00 OutputOutput Total 800 ml 500 ml BalanceBalance -800 ml -500 ml Exam Constitutional: alert (Follows intermittent basic commands, no apparent distress) Head: normocephalic Respiratory: other (Coarse breath sounds bilaterally, no wheezing) Cardiovascular: regular rate and rhythm (S1-S2 heard) Gastrointestinal: soft, non-tender, bowel sounds Extremities: edema Labs Result Diagram: 08/05/1827 08/05/18826 Results 24hrs Laboratory Tests Test 08/05/18 08:27 White Blood Count 9.0 Red Blood Count 2.60 L Hemoglobin 8.8 L Hematocrit 29.3 L Mean Corpuscular Volume 112.7 H Mean Corpuscular Hemoglobin 33.8 H Mean Corpuscular Hemoglobin Concent 30.0 L Red Cell Distribution Width 24.3 H Platelet Count 156 Mean Platelet Volume 10.9 H Immature Granulocytes % 0.400 Neutrophils % 77.4 H Lymphocytes % 10.0 L Monocytes % 7.5 Eosinophils % 4.3 Basophils % 0.4 Nucleated Red Blood Cells % 0.2 H Immature Granulocytes # 0.040 H Neutrophils # 7.0 Lymphocytes # 0.9 Monocytes # 0.7 Eosinophils # 0.4 Basophils # 0.0 Nucleated Red Blood Cells # 0.0 Sodium Level 139 Potassium Level 3.7 Chloride Level 103 Carbon Dioxide Level 20 L Anion Gap 16 H Blood Urea Nitrogen 93 H Creatinine 2.26 H Est Glomerular Filtrat Rate mL/min Glucose Level 121 Calcium Level 9.1 Phosphorus Level 3.1 Magnesium Level 1.9 Medications Medications Current Medications IV Flush (NS 10 ml) 10 ml PRN IV ; Start 05/06/18 at 20:30 Zinc Sulfate (Zinc Sulfate) 220 mg DAILY GTB Last administered on 08/05/18 09:49; Admin Dose 220 MG; Start 05/07/18 at 09:00 Ondansetron HCl (Zofran Tab) 4 mg Q6H PRN GTB NAUSEA AND/OR VOMITING Last administered on 05/31/18 16:47; Admin Dose 4 MG; Start 05/07/18 at 00:15 Multivitamins (Multivitamin) 30 ml DAILY GTB Last administered on 08/05/18 09:49; Admin Dose 30 ML; Start 05/07/18 at 09:00 [facility] This patient goldman... PRN PRN XX WOUND CARE; Start 05/09/18 at 17:00 Clonidine (Catapres) 0.1 mg Q6H PRN PO ELEVATED BLOOD PRESSURE Last administered on 08/03/18 20:27; Admin Dose 0.1 MG; Start 06/03/18 at 03:30 Bumetanide (Bumex) 1 mg BID DIURETICS GTB Last administered on 08/05/18 05:12; Admin Dose 1 MG; Start 06/11/18 at 18:00 Dicyclomine HCl (Bentyl) 20 mg Q8 PO Last administered on 08/05/18 05:12; Admin Dose 20 MG; Start 06/27/18 at 22:00 Cholestyramine Resin (Questran Light) 4 gm 0600,1200,1800,2300 GTB Last administered on 08/05/18 12:02; Admin Dose 4 GM; Start 06/27/18 at 18:00 Vancomycin HCl (Vancomycin Oral Syringe) 125 mg Q6 GTB Last administered on 08/05/18 12:01; Admin Dose 125 MG; Start 07/09/18 at 18:00 Epoetin Zen-epbx (Retacrit (Non-Esrd)) 10,000 unit MoWeFr@1700 SC Last administered on 08/03/18 18:08; Admin Dose 10,000 UNIT; Start 07/13/18 at 17:00 Cefepime HCl 50 ml @ 100 mls/hr Q24H IVPB Last administered on 08/04/18 18:22; Admin Dose 100 MLS/HR; Start 07/14/18 at 18:30 Albuterol/ Ipratropium (Duoneb) 3 ml Q2H RESP THERAPY PRN HHN WHEEZING Last ad ministered on 07/21/18 23:06; Admin Dose 3 ML; Start 07/21/18 at 22:00 Amiodarone HCl (Cordarone) 200 mg BID GTB Last administered on 08/05/18 09:49; Admin Dose 200 MG; Start 07/22/18 at 21:00 Citric Acid/ Sodium Citrate (Bicitra) 60 ml DAILY PO Last administered on 08/05/18 09:50; Admin Dose 60 ML; Start 07/23/18 at 09:00 Levothyroxine Sodium (Synthroid) 75 mcg DAILY@06 GTB Last administered on 08/05/18 05:14; Admin Dose 75 MCG; Start 07/28/18 at 06:00 Nystatin (Nystatin Powder) 1 applic BID TOP Last administered on 08/05/18 09:50; Admin Dose 1 APPLIC; Start 07/28/18 at 17:30 IV Flush (NS 10 ml) 10 ml Q8 PRN IV IV PROTOCOL; Start 07/28/18 at 19:00 Amlodipine Besylate (Norvasc) 2.5 mg BID PO Last administered on 08/05/18 09:48; Admin Dose 2.5 MG; Start 07/30/18 at 21:00 Lorazepam (Ativan) 0.5 mg Q4 PRN IV agitation; Start 08/02/18 at 15:00 Metoprolol Tartrate (Lopressor) 75 mg Q8 GTB Last administered on 08/05/18 05:13; Admin Dose 75 MG; Start 08/04/18 at 22:00 Phenytoin (Dilantin) 250 mg Q12@0800,2000 IV Last administered on 08/05/18at 09:49; Admin Dose 250 MG; Start 08/05/18 at 09:00 Colistimethate Sodium 90 mg/ Sodium Chloride 100 ml @ 200 mls/hr Q36H IVPB ; Start 08/05/18 at 13:30; Stop 08/29/18 at 23:45 Evangelista Scanlon DO Aug 05, 2018 15:29
[2018-08-05] MEDS: SOD CHLORIDE 0.9% IVPB SCH (16:23)
[2018-08-05] MEDS: COLISTIMETHATE IVPB SCH (16:23)
--- NOTE | 2018-08-05 16:31 | PN ---
Date/Time of Note Date/Time of Note DATE: 08/05/18 TIME: 16:26 Assessment/Plan VTE Prophylaxis Risk score (from Ns)>0 risk: 9 [place] [facility] [place] Pharmacological prophylaxis: NA/contraindicated Pharm contraindication: anticoag not tolerated Lines/Catheters IV Catheter Type (from [facility]): PICC Line Central line still needed: Yes Urinary Cath still in place: Yes Reason Cath still needed: urinary retention Assessment/Plan Hospital Course Patient is continues on ventilator without distress, CT of the abdomen and pelvis noted. Assessment/Plan -Possible acute metabolic encephalopathy. Dr. Mathew is following in neurology consultation. -Seizures, continue Dilantin -Persistent leukocytosis with Pseudomonas bacteremia 2 to PICC line infection, continue antibiotics per ID. Dr. Doyle is following in infection disease consultation. 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 TTE 07/16/18 with notion of echodense structure on the mitral valve, calcification vs vegetation. Dr. Scanlon is following in cardiology consultation. Patient needs IV cefepime and amikacin for treatment presumed endocarditis until 08/29/2018 per ID recommendations. -Hypothyroidism, continue levothyroxine. -MDR Klebsiella urinary tract infection, completed treatment with amikacin. -Atrial fibrillation was rapid ventricular response, patient remains in sinus rhythm continue metoprolol and amiodarone. -S/p septic shock secondary to urinary tract infection, anterior neck soft tissue infection, and C. difficile colitis. -C-diff colitis,resolved. -Acute respiratory failure requiring intubation and ventilatory support. Dr. Lambert is following in pulmonology consultation. -S/p tracheostomy on 05/29/18. -Acute kidney injury on chronic kidney disease. Started on HD this admission with recovery of renal function. Dr. Mckeon is following in nephrology consultation. -Anemia of chronic inflammation, stool for OB is negative, status post blood transfusion. Continue Epogen. -Metabolic acidosis, resolved. -Acute diastolic congestive heart failure. -Paroxysmal atrial fibrillation -COPD -Dysphagia with PEG. -G-tube mild malfunction, changed by GI Dr. Carolina is following in gastroenterology consultation. -Obesity -Critical care myopathy Further recommendations based on clinical course. Plan of care discussed with Dr. Eisenberg. Result Diagram: 08/05/18 0827 08/05/18 0827 Results 24hrs Laboratory Tests Test 08/05/18 08:27 White Blood Count 9.0 Red Blood Count 2.60 L Hemoglobin 8.8 L Hematocrit 29.3 L Mean Corpuscular Volume 112.7 H Mean Corpuscular Hemoglobin 33.8 H Mean Corpuscular Hemoglobin Concent 30.0 L Red Cell Distribution Width 24.3 H Platelet Count 156 Mean Platelet Volume 10.9 H Immature Granulocytes % 0.400 Neutrophils % 77.4 H Lymphocytes % 10.0 L Monocytes % 7.5 Eosinophils % 4.3 Basophils % 0.4 Nucleated Red Blood Cells % 0.2 H Immature Granulocytes # 0.040 H Neutrophils # 7.0 Lymphocytes # 0.9 Monocytes # 0.7 Eosinophils # 0.4 Basophils # 0.0 Nucleated Red Blood Cells # 0.0 Sodium Level 139 Potassium Level 3.7 Chloride Level 103 Carbon Dioxide Level 20 L Anion Gap 16 H Blood Urea Nitrogen 93 H Creatinine 2.26 H Est Glomerular Filtrat Rate mL/min Glucose Level 121 Calcium Level 9.1 Phosphorus Level 3.1 Magnesium Level 1.9 Exam/Review of Systems Exam Vitals Vital Signs Date Temp Pulse Resp B/P (MAP) Pulse Ox O2 O2 Flow FiO2 Time Delivery Rate 08/05/18 97.9 75 20 147/75 100 Mechanical 15:54 (99) Ventilator 08/05/18 30 13:30 Intake and Output 08/04/18 08/04/18 08/05/18 1515:00 23:00 07:00 OutputOutput Total 800 ml 500 ml BalanceBalance -800 ml -500 ml Exam Constitutional: alert, oriented Neck: other (Tracheostomy) Respiratory: diminished breath sounds Cardiovascular: regular rate and rhythm Gastrointestinal: soft, non-tender, other (G-tube) Extremities: normal pulses Neurological: nl mental status Results Results 24hrs Laboratory Tests Test 08/05/18 08:27 White Blood Count 9.0 Red Blood Count 2.60 L Hemoglobin 8.8 L Hematocrit 29.3 L Mean Corpuscular Volume 112.7 H Mean Corpuscular Hemoglobin 33.8 H Mean Corpuscular Hemoglobin Concent 30.0 L Red Cell Distribution Width 24.3 H Platelet Count 156 Mean Platelet Volume 10.9 H Immature Granulocytes % 0.400 Neutrophils % 77.4 H Lymphocytes % 10.0 L Monocytes % 7.5 Eosinophils % 4.3 Basophils % 0.4 Nucleated Red Blood Cells % 0.2 H Immature Granulocytes # 0.040 H Neutrophils # 7.0 Lymphocytes # 0.9 Monocytes # 0.7 Eosinophils # 0.4 Basophils # 0.0 Nucleated Red Blood Cells # 0.0 Sodium Level 139 Potassium Level 3.7 Chloride Level 103 Carbon Dioxide Level 20 L Anion Gap 16 H Blood Urea Nitrogen 93 H Creatinine 2.26 H Est Glomerular Filtrat Rate mL/min Glucose Level 121 Calcium Level 9.1 Phosphorus Level 3.1 Magnesium Level 1.9 Medications Medication Current Medications IV Flush (NS 10 ml) 10 ml PRN IV ; Start 05/06/18 at 20:30 Zinc Sulfate (Zinc Sulfate) 220 mg DAILY GTB Last administered on 08/05/18 09:49; Admin Dose 220 MG; Start 05/07/18 at 09:00 Ondansetron HCl (Zofran Tab) 4 mg Q6H PRN GTB NAUSEA AND/OR VOMITING Last administered on 05/31/18 16:47; Admin Dose 4 MG; Start 05/07/18 at 00:15 Multivitamins (Multivitamin) 30 ml DAILY GTB Last administered on 08/05/18 09:49; Admin Dose 30 ML; Start 05/07/18 at 09:00 [facility]iscellaneous [facility] This patient goldman... PRN PRN XX WOUND CARE; Start 05/09/18 at 17:00 Clonidine (Catapres) 0.1 mg Q6H PRN PO ELEVATED BLOOD PRESSURE Last administered on 08/03/18 20:27; Admin Dose 0.1 MG; Start 06/03/18 at 03:30 Bumetanide (Bumex) 1 mg BID DIURETICS GTB Last administered on 08/05/18 05:12; Admin Dose 1 MG; Start 06/11/18 at 18:00 Dicyclomine HCl (Bentyl) 20 mg Q8 PO Last administered on 08/05/18 05:12; Admin Dose 20 MG; Start 06/27/18 at 22:00 Cholestyramine Resin (Questran Light) 4 gm 0600,1200,1800,2300 GTB Last administered on 08/05/18 12:02; Admin Dose 4 GM; Start 06/27/18 at 18:00 Vancomycin HCl (Vancomycin Oral Syringe) 125 mg Q6 GTB Last administered on 6/19/19at 12:01; Admin Dose 125 MG; Start 07/09/18 at 18:00 Epoetin Zen-epbx (Retacrit (Non-Esrd)) 10,000 unit MoWeFr@1700 SC Last administered on 08/03/18 18:08; Admin Dose 10,000 UNIT; Start 07/13/18 at 17:00 Cefepime HCl 50 ml @ 100 mls/hr Q24H IVPB Last administered on 08/04/18at 18:22; Admin Dose 100 MLS/HR; Start 07/14/18 at 18:30 Albuterol/ Ipratropium (Duoneb) 3 ml Q2H RESP THERAPY PRN HHN WHEEZING Last administered on 07/21/18 23:06; Admin Dose 3 ML; Start 07/21/18 at 22:00 Amiodarone HCl (Cordarone) 200 mg BID GTB Last administered on 08/05/18 09:49; Admin Dose 200 MG; Start 07/22/18 at 21:00 Citric Acid/ Sodium Citrate (Bicitra) 60 ml DAILY PO Last administered on 08/05/18 09:50; Admin Dose 60 ML; Start 07/23/18 at 09:00 Levothyroxine Sodium (Synthroid) 75 mcg DAILY@06 GTB Last administered on 08/05/18 05:14; Admin Dose 75 MCG; Start 07/28/18 at 06:00 Nystatin (Nystatin Powder) 1 applic BID TOP Last administered on 08/05/18 09:50; Admin Dose 1 APPLIC; Start 07/28/18 at 17:30 IV Flush (NS 10 ml) 10 ml Q8 PRN IV IV PROTOCOL; Start 07/28/18 at 19:00 Amlodipine Besylate (Norvasc) 2.5 mg BID PO Last administered on 08/05/18 09:48; Admin Dose 2.5 MG; Start 07/30/18 at 21:00 Lorazepam (Ativan) 0.5 mg Q4 PRN IV agitation; Start 08/02/18 at 15:00 Metoprolol Tartrate (Lopressor) 75 mg Q8 GTB Last administered on 08/05/18 05:13; Admin Dose 75 MG; Start 08/04/18 at 22:00 Phenytoin (Dilantin) 250 mg Q12@0800,2000 IV Last administered on 08/05/18at 09:49; Admin Dose 250 MG; Start 08/05/18 at 09:00 Colistimethate Sodium 90 mg/ Sodium Chloride 100 ml @ 200 mls/hr Q36H IVPB ; Start 08/05/18 at 13:30; Stop 08/29/18 at 23:45 GRISELDA DENNIS Aug 05, 2018 16:31
[2018-08-05] MEDS: CEFEPIME 2GM/50 ML (PMX) 50 ML IVPB SCH (18:13)
[2018-08-05] MEDS: EPOETIN ALFA-EPBX (NON-ESRD 10,000 UNIT/ML VIAL SC SCH (18:16)
[2018-08-06] VITALS (22 sets, daily range): BP systolic 129–140; BP diastolic 67–79; PULSE 63–72; RESP 20–25
[2018-08-06] MEDS: DICYCLOMINE 10 MG CAP PO SCH ×3 (05:18→21:16)
[2018-08-06] MEDS: LEVOTHYROXINE 75 MCG TAB GTB SCH (05:18)
[2018-08-06] MEDS: BUMETANIDE 1 MG TAB GTB SCH ×2 (05:18→18:25)
[2018-08-06] MEDS: CHOLESTYRAMINE (LIGHT) 4 GM PACKET GTB SCH ×4 (05:19→23:55)
[2018-08-06] MEDS: METOPROLOL 50 MG TAB GTB SCH ×3 (05:19→21:18)
[2018-08-06] MEDS: VANCOMYCIN HCL 250 MG/5ML POSYG GTB SCH ×4 (05:19→23:55)
[2018-08-06] MEDS: NYSTATIN 30 GM POWDER BTL TOP SCH ×2 (08:46→21:18)
[2018-08-06] MEDS: AMLODIPINE 2.5 MG TAB PO SCH ×2 (08:46→21:17)
[2018-08-06] MEDS: MULTIVITAMINS 30 ML CUP GTB SCH (08:46)
[2018-08-06] MEDS: CITRIC ACID/NA CITRATE 30 ML CUP PO SCH (08:46)
[2018-08-06] MEDS: ZINC SULFATE 220 MG CAP GTB SCH (08:46)
[2018-08-06] MEDS: AMIODARONE 200 MG TAB GTB SCH (08:46)
[2018-08-06] MEDS: BALSAM PERU/CASTOR OIL 60 GM TUBE TOP SCH ×2 (08:47→21:18)
--- NOTE | 2018-08-06 10:36 | PN ---
DATE: 08/06/2018 SUBJECTIVE: The patient is stable, no events overnight. OBJECTIVE: VITAL SIGNS: Blood pressure is 131/67, pulse 63, respirations 21, temperature 98.2. HEENT: Head is normocephalic. NECK: Supple. HEART: Regular rate. LUNGS: Show diminished breath sounds at the base. ABDOMEN: Soft, nontender to palpation without rebound or guarding. EXTREMITIES: Negative for clubbing, cyanosis. Trace edema. DERMATOLOGIC: No rashes. MUSCULOSKELETAL: No joint effusion. NEUROLOGIC: No change in exam. MEDICATIONS: The patient's medications have been reviewed. LABORATORY DATA: Has been reviewed. ASSESSMENT AND PLAN: 1. Nonoliguric acute injury with previous baseline creatinine 2.0 mg/dL. Etiology of acute kidney i njury is secondary to acute tubular necrosis. Patient is status post hemodialysis. The patient's re nal function is stabilized. Continue current treatment plans, supportive care, renally dose all meds . 2. Volume overload secondary to diastolic heart failure, chronic kidney disease. Continue Bumex. 3. Anemia. Continue to monitor hemoglobin and hematocrit levels. Continue Epogen. 4. Mineral bone disorder, monitor calcium and phosphorus levels. 5. Ventilatory-dependent respiratory failure. Vent settings and ABG was reviewed. Continue to [facility]. 6. Sepsis, endocarditis. The patient is completing antibiotic course. 7. Dysphagia. Continue tube feeding. 8. Encephalopathy. Continue to monitor. 9. History of Clostridium difficile. 10. Lower extremity wounds. Continue wound care. 11. Hypokalemia and hypomagnesemia. Continue to monitor and replete as needed. Dictated By: JEANA FINE/TABATHA Conf#: [id number] DID#: [id number]
[2018-08-06] MEDS: PHENYTOIN 100 MG INJ IV SCH ×2 (10:56→21:16)
--- NOTE | 2018-08-06 15:09 | CONS ---
Assessment/Plan Assessment/Plan Hospital Course (Demo Recall) Sepsis Acute respiratory failure status post intubation and repeat tracheostomy Acute blood loss anemia History of respiratory failure status post decannulation Preserved ejection fraction echocardiogram 05/10/2018 Paroxysmal atrial fibrillation Acute kidney injury Presumed mitral valve endocarditis -Antibiotics as per infectious disease -Blood pressure trend overall stable, titrate antihypertensives as needed and continue with holding parameters -Remains in sinus rhythm, continue beta-tin as tolerated, decrease amiodarone -Vent management as per pulmonary -Fluid management and electrolytes as per renal -No anticoagulation given recurrent anemia requiring blood transfusions Consultation Date/Type/Reason Admit Date/Time May 06, 2018 at 17:38 Initial Consult Date 05/10/18 Type of Consult Cardiology Requesting Provider: ROLAND GIRON MD Date/Time of Note DATE: 08/06/18 TIME: 15:08 24 HR Interval Summary Free Text/Dictation Patient seen and examined Exam/Review of Systems Vital Signs Vitals Vital Signs Date Temp Pulse Resp B/P (MAP) Pulse Ox O2 O2 Flow FiO2 Time Delivery Rate 08/06/18 98.0 66 20 131/73 100 Mechanical 14:56 (92) Ventilator 08/06/18 30 13:03 Intake and Output 08/05/18 08/05/18 08/06/18 1515:00 23:00 07:00 IntakeIntake Total 600 ml 100 ml 860 ml OutputOutput Total 750 ml 600 ml 450 ml BalanceBalance -150 ml -500 ml 410 ml Exam Exam Awake, no apparent distress, not following commands Head: normocephalic Respiratory: other (Coarse breath sounds bilaterally, no wheezing) Cardiovascular: regular rate and rhythm (S1-S2 heard) Gastrointestinal: soft, non-tender, bowel sounds Extremities: edema Labs Result Diagram: 08/05/1882608/05/18826 Medications Medications Current Medications Clonidine (Catapres) 0.1 mg Q6H PRN PO ELEVATED BLOOD PRESSURE Last administered on 08/03/18at 20:27; Admin Dose 0.1 MG; Start 06/03/18 at 03:30 Bumetanide (Bumex) 1 mg BID DIURETICS GTB Last administered on 08/06/18at 05:18; Admin Dose 1 MG; Start 06/11/18 at 18:00 Dicyclomine HCl (Bentyl) 20 mg Q8 PO Last administered on 08/06/18 14:04; Admin Dose 20 MG; Start 06/27/18 at 22:00 Cholestyramine Resin (Questran Light) 4 gm 0600,1200,1800,2300 GTB Last administered on 08/06/18 12:55; Admin Dose 4 GM; Start 06/27/18 at 18:00 Vancomycin HCl (Vancomycin Oral Syringe) 125 mg Q6 GTB Last administered on 08/06/18 12:55; Admin Dose 125 MG; Start 07/09/18 at 18:00 Epoetin Zen-epbx (Retacrit (Non-Esrd)) 10,000 unit MoWeFr@1700 SC Last administered on 08/05/18 18:16; Admin Dose 10,000 UNIT; Start 07/13/18 at 17:00 Cefepime HCl 50 ml @ 100 mls/hr Q24H IVPB Last administered on 08/05/18 18:13; Admin Dose 100 MLS/HR; Start 07/14/18 at 18:30 Albuterol/ Ipratropium (Duoneb) 3 ml Q2H RESP THERAPY PRN HHN WHEEZING Last administered on 07/21/18 23:06; Admin Dose 3 ML; Start 07/21/18 at 22:00 Amiodarone HCl (Cordarone) 200 mg BID GTB Last administered on 08/06/18 08:46; Admin Dose 200 MG; Start 07/22/18 at 21:00 Citric Acid/ Sodium Citrate (Bicitra) 60 ml DAILY PO Last administered on 08/06/18 08:46; Admin Dose 60 ML; Start 07/23/18 at 09:00 Levothyroxine Sodium (Synthroid) 75 mcg DAILY@06 GTB Last administered on 08/06/18 05:18; Admin Dose 75 MCG; Start 07/28/18 at 06:00 Nystatin (Nystatin Powder) 1 applic BID TOP Last administered on 08/06/18 08:46; Admin Dose 1 APPLIC; Start 07/28/18 at 17:30 IV Flush (NS 10 ml) 10 ml Q8 PRN IV IV PROTOCOL; Start 07/28/18 at 19:00 Amlodipine Besylate (Norvasc) 2.5 mg BID PO Last administered on 08/06/18 08:46; Admin Dose 2.5 MG; Start 07/30/18 at 21:00 Lorazepam (Ativan) 0.5 mg Q4 PRN IV agitation; Start 08/02/18 at 15:00 Metoprolol Tartrate (Lopressor) 75 mg Q8 GTB Last administered on 08/06/18at 14:04; Admin Dose 75 MG; Start 08/04/18 at 22:00 Phenytoin (Dilantin) 250 mg Q12@0800,2000 IV Last administered on 08/06/18at 10:56; Admin Dose 250 MG; Start 08/05/18 at 09:00 Colistimethate Sodium 90 mg/ Sodium Chloride 100 ml @ 200 mls/hr Q36H IVPB Last administered on 08/05/18at 16:23; Admin Dose 200 MLS/HR; Start 08/05/18 at 13:30; Stop 08/29/18 at 23:45 Evangelista Scanlon DO Aug 06, 2018 15:09
--- NOTE | 2018-08-06 16:21 | PN ---
Date/Time of Note Date/Time of Note DATE: 08/06/18 TIME: 16:15 Assessment/Plan VTE Prophylaxis Risk score (from Ns)>0 risk: 10 SCD applied (from [facility]s): Yes Pharmacological prophylaxis: NA/contraindicated Pharm contraindication: anticoag not tolerated Lines/Catheters [facility] Line Central line still needed: Yes Urinary Cath still in place: Yes Reason Cath still needed: urinary retention Assessment/Plan Hospital Course Patient remains hemodynamically stable, afebrile, continues on ventilator without distress, discussed with case management, no accepting subacute facility is available today. Assessment/Plan -Possible acute metabolic encephalopathy. Dr. Mathew is following in neurology consultation. -Seizures, continue Dilantin -Persistent leukocytosis with Pseudomonas bacteremia 2 to PICC line infection, continue antibiotics per ID. Dr. Doyle is following in infection disease consultation. 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 TTE 07/16/18 with notion of echodense structure on the mitral valve, calcification vs vegetation. Dr. Scanlon is following in cardiology consultation. Patient needs IV cefepime and amikacin for treatment presumed endocarditis until 08/29/2018 per ID recommendations. -Hypothyroidism, continue levothyroxine. -MDR Klebsiella urinary tract infection, completed treatment with amikacin. -Atrial fibrillation was rapid ventricular response, patient remains in sinus rhythm continue metoprolol and amiodarone. -S/p septic shock secondary to urinary tract infection, anterior neck soft tissue infection, and C. difficile colitis. -C-diff colitis,resolved. -Acute respiratory failure requiring intubation and ventilatory support. Dr. Lambert is following in pulmonology consultation. -S/p tracheostomy on 05/29/18. -Acute kidney injury on chronic kidney disease. Started on HD this admission with recovery of renal function. Dr. Mckeon is following in nephrology consultation. -Anemia of chronic inflammation, stool for OB is negative, status post blood transfusion. Continue Epogen. -Metabolic acidosis, resolved. -Acute diastolic congestive heart failure. -Paroxysmal atrial fibrillation -COPD -Dysphagia with PEG. -G-tube mild malfunction, changed by GI Dr. Carolina is following in gastro enterology consultation. -Obesity -Critical care myopathy Further recommendations based on clinical course. Plan of care discussed with Dr. Eisenberg. Result Diagram: 08/05/1882608/05/18826 Subjective 24 Hr Interval Summary Free Text/Dictation Constitutional: alert, oriented Neck: other (Tracheostomy) Respiratory: diminished breath sounds Cardiovascular: regular rate and rhythm Gastrointestinal: soft, non-tender, other (G-tube) Extremities: normal pulses Neurological: nl mental status Exam/Review of Systems Exam Vitals Vital Signs Date Temp Pulse Resp B/P (MAP) Pulse Ox O2 O2 Flow FiO2 Time Delivery Rate 08/06/18 64 25 98 30 15:52 08/06/18 98.0 131/73 Mechanical 14:56 (92) Ventilator Intake and Output 08/05/18 08/05/18 08/06/18 1515:00 23:00 07:00 IntakeIntake Total 600 ml 100 ml 860 ml OutputOutput Total 750 ml 600 ml 450 ml BalanceBalance -150 ml -500 ml 410 ml Exam Constitutional: alert, oriented Neck: other (Tracheostomy) Respiratory: diminished breath sounds Cardiovascular: regular rate and rhythm Gastrointestinal: soft, non-tender, other (G-tube) Extremities: normal pulses Neurological: nl mental status Medications Medication Current Medications Clonidine (Catapres) 0.1 mg Q6H PRN PO ELEVATED BLOOD PRESSURE Last administered on 08/03/18 20:27; Admin Dose 0.1 MG; Start 06/03/18 at 03:30 Bumetanide (Bumex) 1 mg BID DIURETICS GTB Last administered on 08/06/18at 05:18; Admin Dose 1 MG; Start 06/11/18 at 18:00 Dicyclomine HCl (Bentyl) 20 mg Q8 PO Last administered on 08/06/18at 14:04; Admin Dose 20 MG; Start 06/27/18 at 22:00 Cholestyramine Resin (Questran Light) 4 gm 0600,1200,1800,2300 GTB Last administered on 08/06/18at 12:55; Admin Dose 4 GM; Start 06/27/18 at 18:00 Vancomycin HCl (Vancomycin Oral Syringe) 125 mg Q6 GTB Last administered on 08/06/18at 12:55; Admin Dose 125 MG; Start 07/09/18 at 18:00 Epoetin Zen-epbx (Retacrit (Non-Esrd)) 10,000 unit MoWeFr@1700 SC Last administered on 08/05/18 18:16; Admin Dose 10,000 UNIT; Start 07/13/18 at 17:00 Cefepime HCl 50 ml @ 100 mls/hr Q24H IVPB Last administered on 08/05/18 18:13; Admin Dose 100 MLS/HR; Start 07/14/18 at 18:30 Albuterol/ Ipratropium (Duoneb) 3 ml Q2H RESP THERAPY PRN HHN WHEEZING Last administered on 07/21/18 23:06; Admin Dose 3 ML; Start 07/21/18 at 22:00 Citric Acid/ Sodium Citrate (Bicitra) 60 ml DAILY PO Last administered on 08/06/18 08:46; Admin Dose 60 ML; Start 07/23/18 at 09:00 Levothyroxine Sodium (Synthroid) 75 mcg DAILY@06 GTB Last administered on 08/06/18 05:18; Admin Dose 75 MCG; Start 07/28/18 at 06:00 Nystatin (Nystatin Powder) 1 applic BID TOP Last administered on 08/06/18 08:46; Admin Dose 1 APPLIC; Start 07/28/18 at 17:30 IV Flush (NS 10 ml) 10 ml Q8 PRN IV IV PROTOCOL; Start 07/28/18 at 19:00 Amlodipine Besylate (Norvasc) 2.5 mg BID PO Last administered on 08/06/18 08:46; Admin Dose 2.5 MG; Start 07/30/18 at 21:00 Lorazepam (Ativan) 0.5 mg Q4 PRN IV agitation; Start 08/02/18 at 15:00 Metoprolol Tartrate (Lopressor) 75 mg Q8 GTB Last administered on 08/06/18 14:04; Admin Dose 75 MG; Start 08/04/18 at 22:00 Phenytoin (Dilantin) 250 mg Q12@0800,2000 IV Last administered on 08/06/18 10:56; Admin Dose 250 MG; Start 08/05/18 at 09:00 Colistimethate Sodium 90 mg/ Sodium Chloride 100 ml @ 200 mls/hr Q36H IVPB Last administered on 08/05/18 16:23; Admin Dose 200 MLS/HR; Start 08/05/18 at 13:30; Stop 08/29/18 at 23:45 Amiodarone HCl (Cordarone) 200 mg DAILY GTB ; Start 08/07/18 at 09:00 GRISELDA DENNIS Aug 06, 2018 16:21
[2018-08-06] MEDS: CEFEPIME 2GM/50 ML (PMX) 50 ML IVPB SCH (18:25)
--- NOTE | 2018-08-06 21:56 | CONS ---
Assessment/Plan Assessment/Plan Hospital Course (Demo Recall) # sepsis, leukocytosis, SIRS, pulmonary, cardiac - recurrent leukocytosis due to bacteremia (below), improved - s/p septic shock due to pneumonia and C diff colitis - acute on chronic hypoxic respiratory failure, persistent - s/p reintubation 05/12/2018 - s/p re-do trach on 05/29/2018 - recurrent colonization of the anterior neck wound with ESBL+kleb, MRSA, GBS, corynebacteria on 05/06/2018 - h/o pneumonia vs. colonization of the airway by pseudomonas and ESBL+klebsiella - h/o possible, recurrent HCAP due to pseudomonas and ESBL+klebsiella - h/o recurrent HCAP due to MRSA and Enterobacter (culture of tracheal aspirate on 07/16/2017 that was collected at [facility]) . Pt took vancomycin and ceftazidime - h/o decannulation prior to admission - h/o tracheostomy on 06/11/2017 - h/o SIRS from UGIB in 2018 - h/o thoracentesis on 07/18/2017, transudative (protein <2, LDH 279) - h/o bleeding from the trach site in 2018 - h/o septic shock due to pneumonia, ARDS, bacteremia, fungemia in 2018 - h/o ARDS in 2018 - h/o smoking - COPD - h/o ILD per medical record - h/o PAF, improved - echodense structure in posterior leafleat region, differential includes calcification vs vegetation per 2D echo 07/15/2018 # GI - s/p possible ileus or enterocolitis on CT abd/pel 06/15/2018-->follow up CT on 07/15/2018 showed no evidence of urolithiasis, obstructive uropathy or diverticulitis; it showed small to moderate ascites-->CT on 08/04/2018 showed colonic obstruction, mild to moderate ascites, diffuse gallbladder wall thickening - C diff colitis, diagnosed on 05/11/2018. Pt is on pGT vancomycin (05/11/2018-); Pt previously took IV metronidazole (05/11/2018-05/29/2018; restart 05/30/2018- 06/05/18) too - Pt had multiple negative C. diff tests at [facility] and at OSH in the past; none was positive until 05/11/2018 - dysphagia - h/o PEG placement 06/13/2018 - protein calorie malnutrition - h/o coffee ground emesis/UGIB on 12/23/2017 due to deep ulceration of distal esophagus and gastritis on EGD 12/26/2017. No e/o H. pylori - h/o possible appendicitis on CT on 11/22/2017, Pt took ertapenem (11/24/2017- 12/01/2017) - h/o extensive adhesions lower abdominal and pelvis between small bowel to each other and to colon and to abdominal wall, anterior pelvic wall chronic abscess secondary to probably an old perforated diverticulitis, torsion of small bowel around these dense adhesion causing multiple obstructive points - h/o laparoscopic exploration and extensive lysis of adhesions and drainage of anterior pelvic wall abscess 09/16/2017. Cultures were negative, no e/o malignancy. Pt took pip/tazo (09/16/2017-09/26/2017) - h/o EGD and exchange of PEG on 09/01/2017 - h/o partial obstruction mid jejunum in L anterior central pelvis with suggestion of a 3 cm soft tissue mass on CT 08/28/2017 - h/o internal stomal deep ulcer behind the internal bumper, gastritis and esophagitis, Rodriguez's cannot be ruled out, per EGD with biopsy 07/23/2017 - h/o GIB s/p flex sig showed polyp; stool OB negative on 06/29/17 - h/o stool OB positive status - h/o SBO and ileus due to pain meds - h/o mildly elevated CEA # renal/ - s/p recurrent UTI due to pseudomonas (culture on 07/09/2018)-->Garza catheter was replaced on 07/14/2018 - s/p UTI due to MDR, CRE-klebsiella on 06/15/2018. S/p renally dosed amikacin for klebsiella in her urine culture (06/17-06/22/2018) - s/p UTI due to pseudomonas and ESBL+klebsiella on 06/09/2018, Pt took one dose of fosfomycin on 06/10/2018 and cipro 06/12-06/15/2018 - anasarca - started on HD on 05/15/2018, via Juan in R groin - recurrent NATHAN on CKD - 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 Her strain of CRE was sensitive to colistin, Avycaz, and Vabomere but resistant to Zerbaxa (reported on 05/19/2018) - metabolic acidosis - adrenal insufficiency - h/o vaginal bleed in 2018 - h/o colonization of urinary tract by ESBL+klebsiella, VRE - h/o recurrent, symptomatic UTI due to carbapenem-resistant kleb (MDR strain) per urine culture 10/04/17, 10/09/17, 10/21/2017, P took colistin (10/09/2017- 10/15/2017), fosfomycin for carbapenemase-producing klebsiella and VRE on 10/25/2017 and 10/28/2017 - h/o funguria - h/o urinary retention # bloodstream infections - bacteremia d/t pseudomonas aeruginosa 07/09/18, 07/10/18, 07/11/18, 07/12/18, 07/13/18, 07/15/18, 07/17/18. This is associated with PICC because the blood culture from PICC and phlebotomy on 07/13/2018 both grew the same bacteria. The tip of PICC that was removed on 07/14/18 also grew the same bacteria in culture. - Some strains of pseudomonas she had were pansensitive while other strains of pseudomonas were resistant to many antibiotics (MDR). - Pt's strain of pseudomonas on 07/09/2018 was resistant to all except for aminoglycosides (amikacin, gentamicin, tobramycin), colistin (IRASEMA=1, reported to be susceptible) and ceftolozane/tazobactam, but resistant to ceftaz/avibactam - Pt's strain of pseudomonas on was resistant to all except for aminoglycosides (amikacin, gentamicin, tobramycin), colistin (IRASEMA=3, no interpretation) and ceftolozane/tazobactam, but resistant to ceftaz/avibactam 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; Pt declined surgery for MVR per outside medical records; TTE 07/01/17 did not mention any thrombus; s/p voriconazole (05/25/2017-08/01/2017) - h/o bacteremia due to MSSA and proteus s/p ceftriaxone; repeat blood cultures were negative on 06/14/2017 - s/p RUE PICC line placement 07/28/2018 # musculoskeletal and dermatological - dry skin - chronic wound of LLE - h/o infection of wound of LLE - h/o debridement of wound of LLE on 08/06/2017 - h/o recurrent herpes labialis, Pt took acyclovir, valacyclovir - h/o Osler's nodes (eschar) of R toes with erythematous skin; desquamation of the skin and open lacerations on R plantar foot. improved. Probable manifestati on of endocarditis. Pt declined MRI on 08/06/2017 - h/o infection of R toes due to pseudomonas. coagulase negative Staph likely a colonizer - h/o intertrigo of the groin, resolved with nystatin powder - h/o scabies (proven by skin scraping), locally crusted lesion over L scapula, s/p permethrin cream and pGT ivermectin on 08/11/2017, 08/12/2017, 08/19/2017. Repeat skin scraping on 08/21/2017 was negative for scabies # psych, neuro - chronic toxic metabolic encephalopathy, progressing - MRI brain on 07/26/2018 showed no acute intracranial pathology - seizure activity per EEG 07/27/18 - on Dilantin - decreased hearing b/l - h/o critical illness polyneuropathy - anxiety/depression, bipolar d/o, seen by Psychiatry in the past - chronic pain syndrome - h/o medical non-compliance: she would refuse her medications, treatment and straight catheterization in 2018 - complete opacification of the bilateral mastoid air cells per MRI Brain on 07/26/2018 # hematological, vascular - chronic anemia requiring blood transfusion intermittently - macrocytic anemia - aneurysmal dilatation of the distal aorta visualized on CT 06/15/2018 - PVD # other - hypothyroidism with elevated TSH - on Synthroid recommendations: - Pt was evaluated by ENT on 08/04/2018; audiology exam not available/has not been performed. I stopped amikacin IV (07/09/2018-) because of concern for her diminished hearing - continue renally dosed colistin (08/05/2018-); Pt's strain of pseudomonas in her blood culture on 07/17/2018 had IRASEMA of 3 for colistin, which is between sensitive (IRASEMA 2) and intermediate (IRASEMA 4) - Continue renally dosed IV cefepime (07/14/2018-); I recommend double coverage because amikacin alone did not clear her bacteremia initially - we recommend 6 weeks of antibiotics for probable endocarditis from the first day of negative blood culture, i.e. 07/18/2018 through 08/29/2018 - if Pt has break-through bacteremia, will request its sensitivity to colistin again - I will also recommend repeat transthoracic echo at the end of her antibiotic course - continue vancomycin pGT (07/09/18-) while on IV antibiotics given h/o C. diff. Pt completed IV metronidazole (07/09/18-07/15/18) Consultation Date/Type/Reason Admit Date/Time May 06, 2018 at 17:38 Initial Consult Date 05/10/18 Type of Consult ID Requesting Provider: ROLAND GIRON MD Date/Time of Note DATE: 08/06/18 TIME: 21:53 24 HR Interval Summary Subjective hx not possible: pt non-verbal Exam/Review of Systems Exam Vitals Vital Signs Date Temp Pulse Resp B/P (MAP) Pulse Ox O2 O2 Flow FiO2 Time Delivery Rate 08/06/18 97.6 68 20 136/69 100 20:00 (91) 08/06/18 30 19:26 08/06/18 Mechanical 14:56 Ventilator Intake and Output 08/05/18 08/05/18 08/06/18 1515:00 23:00 07:00 IntakeIntake Total 600 ml 100 ml 860 ml OutputOutput Total 750 ml 600 ml 450 ml BalanceBalance -150 ml -500 ml 410 ml Constitutional: non-verbal, frail, obese Psych: no complaints, confusion Head: normocephalic, atraumatic Eyes: nl conjunctiva, nl lids, nl sclera ENMT: nl external ears & nose, nl nasal mucosa & septum, mucosa pink and moist Neck: other (trach) Respiratory: crackles/rales Cardiovascular: regular rate and rhythm, nl pulses Gastrointestinal: soft, non-tender, surgical scars; No distended, No tender Genitourinary - Female: other (FC) Musculoskeletal: nl extremities to inspection Extremities: edema Neurological: lethargic Skin: nl turgor Results Result Diagram: 08/05/1882608/05/18826 Medications Medication Current Medications Clonidine (Catapres) 0.1 mg Q6H PRN PO ELEVATED BLOOD PRESSURE Last administered on 08/03/18 20:27; Admin Dose 0.1 MG; Start 06/03/18 at 03:30 Bumetanide (Bumex) 1 mg BID DIURETICS GTB Last administered on 08/06/18 18:25; Admin Dose 1 MG; Start 06/11/18 at 18:00 Dicyclomine HCl (Bentyl) 20 mg Q8 PO Last administered on 08/06/18 21:16; Admin Dose 20 MG; Start 06/27/18 at 22:00 Cholestyramine Resin (Questran Light) 4 gm 0600,1200,1800,2300 GTB Last administered on 08/06/18 18:24; Admin Dose 4 GM; Start 06/27/18 at 18:00 Vancomycin HCl (Vancomycin Oral Syringe) 125 mg Q6 GTB Last administered on 08/06/18 18:24; Admin Dose 125 MG; Start 07/09/18 at 18:00 Epoetin Zen-epbx (Retacrit (Non-Esrd)) 10,000 unit MoWeFr@1700 SC Last administered on 08/05/18 18:16; Admin Dose 10,000 UNIT; Start 07/13/18 at 17:00 Cefepime HCl 50 ml @ 100 mls/hr Q24H IVPB Last administered on 08/06/18 18:25; Admin Dose 100 MLS/HR; Start 07/14/18 at 18:30 Albuterol/ Ipratropium (Duoneb) 3 ml Q2H RESP THERAPY PRN HHN WHEEZING Last administered on 07/21/18 23:06; Admin Dose 3 ML; Start 07/21/18 at 22:00 Citric Acid/ Sodium Citrate (Bicitra) 60 ml DAILY PO Last administered on 08/06/18 08:46; Admin Dose 60 ML; Start 07/23/18 at 09:00 Levothyroxine Sodium (Synthroid) 75 mcg DAILY@06 GTB Last administered on 08/06/18 05:18; Admin Dose 75 MCG; Start 07/28/18 at 06:00 Nystatin (Nystatin Powder) 1 applic BID TOP Last administered on 08/06/18at 21:18; Admin Dose 1 APPLIC; Start 07/28/18 at 17:30 IV Flush (NS 10 ml) 10 ml Q8 PRN IV IV PROTOCOL; Start 07/28/18 at 19:00 Amlodipine Besylate (Norvasc) 2.5 mg BID PO Last administered on 08/06/18at 21:17; Admin Dose 2.5 MG; Start 07/30/18 at 21:00 Lorazepam (Ativan) 0.5 mg Q4 PRN IV agitation; Start 08/02/18 at 15:00 Metoprolol Tartrate (Lopressor) 75 mg Q8 GTB Last administered on 08/06/18at 21:18; Admin Dose 75 MG; Start 08/04/18 at 22:00 Phenytoin (Dilantin) 250 mg Q12@0800,2000 IV Last administered on 08/06/18at 21:16; Admin Dose 250 MG; Start 08/05/18 at 09:00 Colistimethate Sodium 90 mg/ Sodium Chloride 100 ml @ 200 mls/hr Q36H IVPB Last administered on 08/05/18at 16:23; Admin Dose 200 MLS/HR; Start 08/05/18 at 13:30; Stop 08/29/18 at 23:45 Amiodarone HCl (Cordarone) 200 mg DAILY GTB ; Start 08/07/18 at 09:00 CELESTINE MURPHY M.D. Aug 06, 2018 21:56
[2018-08-07] VITALS (22 sets, daily range): BP systolic 122–143; BP diastolic 59–72; PULSE 64–73; RESP 18–24
[2018-08-07] MEDS: COLISTIMETHATE IVPB SCH (01:37)
[2018-08-07] MEDS: SOD CHLORIDE 0.9% IVPB SCH (01:37)
[2018-08-07] MEDS: LEVOTHYROXINE 75 MCG TAB GTB SCH (05:23)
[2018-08-07] MEDS: CHOLESTYRAMINE (LIGHT) 4 GM PACKET GTB SCH ×4 (05:23→22:10)
[2018-08-07] MEDS: VANCOMYCIN HCL 250 MG/5ML POSYG GTB SCH ×4 (05:23→23:30)
[2018-08-07] MEDS: BUMETANIDE 1 MG TAB GTB SCH ×2 (05:23→17:33)
[2018-08-07] MEDS: METOPROLOL 50 MG TAB GTB SCH ×3 (05:24→21:30)
[2018-08-07] MEDS: DICYCLOMINE 10 MG CAP PO SCH ×3 (05:27→22:10)
--- NOTE | 2018-08-07 05:47 | PN ---
Date/Time of Note Date/Time of Note DATE: 08/07/18 TIME: 05:46 Assessment/Plan VTE Prophylaxis Risk score (from Nsg)>0 risk: 10 SCD applied (from Nsg): Yes Lines/Catheters IV Catheter Type (from Nrsg): PICC Line Urinary Cath still in place: Yes Assessment/Plan Assessment/Plan -Possible acute metabolic encephalopathy. Dr. Mathew is following in neurology consultation. -Seizures, continue Dilantin -Persistent leukocytosis with Pseudomonas bacteremia 2 to PICC line infection, continue antibiotics per ID. Dr. Doyle is following in infection disease consultation. 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 TTE 07/16/18 with notion of echodense structure on the mitral valve, calcification vs vegetation. Dr. Scanlon is following in cardiology consultation. Patient needs IV cefepime and amikacin for treatment presumed endocarditis until 08/29/2018 per ID recommendations. -Hypothyroidism, continue levothyroxine. -MDR Klebsiella urinary tract infection, completed treatment with amikacin. -Atrial fibrillation was rapid ventricular response, patient remains in sinus rhythm continue metoprolol and amiodarone. -S/p septic shock secondary to urinary tract infection, anterior neck soft ti ssue infection, and C. difficile colitis. -C-diff colitis,resolved. -Acute respiratory failure requiring intubation and ventilatory support. Dr. Lambert is following in pulmonology consultation. -S/p tracheostomy on 05/29/18. -Acute kidney injury on chronic kidney disease. Started on HD this admission with recovery of renal function. Dr. Mckeon is following in nephrology c onsultation. -Anemia of chronic inflammation, stool for OB is negative, status post blood transfusion. Continue Epogen. -Metabolic acidosis, resolved. -Acute diastolic congestive heart failure. -Paroxysmal atrial fibrillation -COPD -Dysphagia with PEG. -G-tube mild malfunction, changed by GI Dr. Carolina is following in gastroenterology consultation. -Obesity -Critical care myopathy Further recommendations based on clinical course. Plan of care discussed with Dr. Eisenberg. Result Diagram: 08/05/1882608/05/18826 Subjective 24 Hr Interval Summary Free Text/Dictation cloudy urine- will change FC; UA; C/S- FU Exam/Review of Systems Exam Vitals Vital Signs Date Temp Pulse Resp B/P (MAP) Pulse Ox O2 O2 Flow FiO2 Time Delivery Rate 08/07/18 72 23 100 30 05:20 08/07/18 98.5 143/72 04:00 (95) 08/06/18 Mechanical 14:56 Ventilator Intake and Output 08/06/18 08/06/18 08/07/18 1515:00 23:00 07:00 IntakeIntake Total 780 ml 1000 ml OutputOutput Total 400 ml 850 ml 700 ml BalanceBalance -400 ml -70 ml 300 ml Medications Medication Current Medications Clonidine (Catapres) 0.1 mg Q6H PRN PO ELEVATED BLOOD PRESSURE Last administered on 08/03/18 20:27; Admin Dose 0.1 MG; Start 06/03/18 at 03:30 Bumetanide (Bumex) 1 mg BID DIURETICS GTB Last administered on 08/06/18 18:25; Admin Dose 1 MG; Start 06/11/18 at 18:00 Dicyclomine HCl (Bentyl) 20 mg Q8 PO Last administered on 08/06/18 21:16; Admin Dose 20 MG; Start 06/27/18 at 22:00 Cholestyramine Resin (Questran Light) 4 gm 0600,1200,1800,2300 GTB Last administered on 08/06/18 23:55; Admin Dose 4 GM; Start 06/27/18 at 18:00 Vancomycin HCl (Vancomycin Oral Syringe) 125 mg Q6 GTB Last administered on 08/06/18 23:55; Admin Dose 125 MG; Start 07/09/18 at 18:00 Epoetin Zen-epbx (Retacrit (Non-Esrd)) 10,000 unit MoWeFr@1700 SC Last administered on 08/05/18 18:16; Admin Dose 10,000 UNIT; Start 07/13/18 at 17:00 Cefepime HCl 50 ml @ 100 mls/hr Q24H IVPB Last administered on 08/06/18 18:25; Admin Dose 100 MLS/HR; Start 07/14/18 at 18:30 Albuterol/ Ipratropium (Duoneb) 3 ml Q2H RESP THERAPY PRN HHN WHEEZING Last administered on 07/21/18 23:06; Admin Dose 3 ML; Start 07/21/18 at 22:00 Citric Acid/ Sodium Citrate (Bicitra) 60 ml DAILY PO Last administered on 08/06/18 08:46; Admin Dose 60 ML; Start 07/23/18 at 09:00 Levothyroxine Sodium (Synthroid) 75 mcg DAILY@06 GTB Last administered on 08/06/18 05:18; Admin Dose 75 MCG; Start 07/28/18 at 06:00 Nystatin (Nystatin Powder) 1 applic BID TOP Last administered on 08/06/18 21:18; Admin Dose 1 APPLIC; Start 07/28/18 at 17:30 IV Flush (NS 10 ml) 10 ml Q8 PRN IV IV PROTOCOL; Start 07/28/18 at 19:00 Amlodipine Besylate (Norvasc) 2.5 mg BID PO Last administered on 08/06/18at 21:17; Admin Dose 2.5 MG; Start 07/30/18 at 21:00 Lorazepam (Ativan) 0.5 mg Q4 PRN IV agitation; Start 08/02/18 at 15:00 Metoprolol Tartrate (Lopressor) 75 mg Q8 GTB Last administered on 08/06/18 21:18; Admin Dose 75 MG; Start 08/04/18 at 22:00 Phenytoin (Dilantin) 250 mg Q12@0800,2000 IV Last administered on 08/06/18 21:16; Admin Dose 250 MG; Start 08/05/18 at 09:00 Colistimethate Sodium 90 mg/ Sodium Chloride 100 ml @ 200 mls/hr Q36H IVPB Last administered on 08/07/18at 01:37; Admin Dose 200 MLS/HR; Start 08/05/18 at 13:30; Stop 08/29/18 at 23:45 Amiodarone HCl (Cordarone) 200 mg DAILY GTB ; Start 08/07/18 at 09:00 KERON MORAN Aug 07, 2018 05:47
[2018-08-07] MEDS: PHENYTOIN 100 MG INJ IV SCH ×2 (08:30→21:29)
[2018-08-07] MEDS ORDERED: POTASSIUM CHLORIDE 20 MEQ POWDER FOR ORAL SOLN GTB ONE (09:00)
[2018-08-07] MEDS: AMLODIPINE 2.5 MG TAB PO SCH ×2 (09:23→21:30)
[2018-08-07] MEDS: CITRIC ACID/NA CITRATE 30 ML CUP PO SCH (09:24)
[2018-08-07] MEDS: AMIODARONE 200 MG TAB GTB SCH (09:24)
[2018-08-07] MEDS: NYSTATIN 30 GM POWDER BTL TOP SCH ×2 (09:25→21:27)
[2018-08-07] MEDS: BALSAM PERU/CASTOR OIL 60 GM TUBE TOP SCH ×2 (09:25→21:28)
--- NOTE | 2018-08-07 09:40 | PN ---
DATE: 08/07/2018 SUBJECTIVE: The patient is stable. No events overnight. The patient's Garza catheter is pending ex change. No other events noted. OBJECTIVE: VITAL SIGNS: Blood pressure is 134/70, respirations 20, pulse 64, temperature 98.1. HEENT: Head is normocephalic. NECK: Supple. HEART: Regular rate. LUNGS: Show diminished breath sounds at the base. ABDOMEN: Soft, nontender to palpation without rebound or guarding. EXTREMITIES: Negative for clubbing, cyanosis. Positive edema. DERMATOLOGIC: No rashes. MUSCULOSKELETAL: No joint effusion. NEUROLOGIC: No change in exam. MEDICATIONS: The patient's medications have been reviewed. LABORATORY DATA: Has been reviewed. IMAGING STUDIES: Have been reviewed. ASSESSMENT AND PLAN: 1. Nonoliguric acute kidney injury with previous baseline creatinine 2.0 mg/dL. Etiology is seconda ry to acute tubular necrosis. The patient is status post hemodialysis. Renal function is stabilizin g. Continue current treatment plan. Supportive care. Renally dose all meds. 2. Volume overload secondary to , chronic kidney disease. The patient remains volume-overloade d. Continue Bumex. Will add metolazone intermittently to augment diuresis. 3. Hypokalemia. Continue to monitor and replete. 4. Anemia. Monitor hemoglobin and hematocrit levels. Continue Epogen. 5. Mineral bone disorder, monitor calcium and phosphorus levels. 6. Ventilator-dependent respiratory failure. Vent settings and ABG was reviewed. Continue to monit or. 7. Sepsis secondary to endocarditis. The patient has completed an antibiotic course. 8. Dysphagia. Continue tube feedings. 9. Encephalopathy. Continue to monitor. 10. History of Clostridium difficile. 11. Lower extremity wounds. 12. Hypomagnesemia. Continue to monitor and replete. Dictated By: JEANA BANSAL DO NR/NTS Conf#: [id number] DID#: [id number] CC: ROLAND GIRON MD; QUINTEN UMAÑA MD;*EndCC*
--- NOTE | 2018-08-07 13:45 | CONS ---
Assessment/Plan Assessment/Plan Assessment/Plan (Daily) Sepsis Acute respiratory failure status post intubation and repeat tracheostomy Acute blood loss anemia History of respiratory failure status post decannulation Preserved ejection fraction echocardiogram 05/10/2018 Paroxysmal atrial fibrillation Acute kidney injury Presumed mitral valve endocarditis -Antibiotics as per infectious disease -Blood pressure trend overall stable, titrate antihypertensives as needed and continue with holding parameters -Remains in sinus rhythm, continue beta-tin as tolerated, decrease amiodarone -Vent management as per pulmonary -Fluid management and electrolytes as per renal -No anticoagulation given recurrent anemia requiring blood transfusions Consultation Date/Type/Reason Admit Date/Time May 06, 2018 at 17:38 Initial Consult Date 05/10/18 Type of Consult Cardiology Requesting Provider: ROLAND GIRON MD Date/Time of Note DATE: 08/07/18 TIME: 13:45 24 HR Interval Summary Free Text/Dictation the pateint with no cahnge Exam/Review of Systems Vital Signs Vitals Vital Signs Date Temp Pulse Resp B/P (MAP) Pulse Ox O2 O2 Flow FiO2 Time Delivery Rate 08/07/18 71 13:30 08/07/18 98.2 21 131/71 95 Mechanical 11:22 (91) Ventilator Trach Collar 08/07/18 30 11:05 Intake and Output 08/06/18 08/06/18 08/07/18 1515:00 23:00 07:00 IntakeIntake Total 830 ml 1000 ml OutputOutput Total 400 ml 850 ml 700 ml BalanceBalance -400 ml -20 ml 300 ml Labs Result Diagram: 08/07/18 0632 08/07/18 0632 Results 24hrs Laboratory Tests Test 08/07/18 06:00 08/07/18 06:32 Urine Color YELLOW Urine Clarity CLOUDY A Urine pH 6.0 Urine Specific [place] 1.014 Urine Ketones NEGATIVE Urine Nitrite NEGATIVE Urine Bilirubin NEGATIVE Urine Urobilinogen NEGATIVE Urine Leukocyte Esterase 3+ H Urine Microscopic RBC 13 H Urine Microscopic WBC > 182 H Urine Bacteria MODERATE Urine Hemoglobin 1+ H Urine Glucose NEGATIVE Urine Total Protein 2+ H White Blood Count 7.5 Red Blood Count 2.50 L Hemoglobin 8.6 L Hematocrit 28.5 L Mean Corpuscular Volume 114.0 H Mean Corpuscular Hemoglobin 34.4 H Mean Corpuscular Hemoglobin Concent 30.2 L Red Cell Distribution Width 24.8 H Platelet Count 157 Mean Platelet Volume 10.5 H Immature Granulocytes % 0.500 H Neutrophils % 75.7 Lymphocytes % 10.4 L Monocytes % 8.6 Eosinophils % 4.4 Basophils % 0.4 Nucleated Red Blood Cells % 0.0 Immature Granulocytes # 0.040 H Neutrophils # 5.7 Lymphocytes # 0.8 Monocytes # 0.7 Eosinophils # 0.3 Basophils # 0.0 Nucleated Red Blood Cells # 0.0 Sodium Level 138 Potassium Level 3.1 L Chloride Level 107 Carbon Dioxide Level 19 L Anion Gap 12 Blood Urea Nitrogen 91 H Creatinine 2.27 H Est Glomerular Filtrat Rate mL/min Glucose Level 92 Calcium Level 9.1 Medications Medications Current Medications Clonidine (Catapres) 0.1 mg Q6H PRN PO ELEVATED BLOOD PRESSURE Last administered on 08/03/18 20:27; Admin Dose 0.1 MG; Start 06/03/18 at 03:30 Bumetanide (Bumex) 1 mg BID DIURETICS GTB Last administered on 08/07/18 05:23; Admin Dose 1 MG; Start 06/11/18 at 18:00 Dicyclomine HCl (Bentyl) 20 mg Q8 PO Last administered on 08/07/18 05:27; Admin Dose 20 MG; Start 06/27/18 at 22:00 Cholestyramine Resin (Questran Light) 4 gm 0600,1200,1800,2300 GTB Last administered on 08/07/18 12:29; Admin Dose 4 GM; Start 06/27/18 at 18:00 Vancomycin HCl (Vancomycin Oral Syringe) 125 mg Q6 GTB Last administered on 08/07/18 12:29; Admin Dose 125 MG; Start 07/09/18 at 18:00 Epoetin Zen-epbx (Retacrit (Non-Esrd)) 10,000 unit MoWeFr@1700 SC Last administered on 08/05/18 18:16; Admin Dose 10,000 UNIT; Start 07/13/18 at 17:00 Cefepime HCl 50 ml @ 100 mls/hr Q24H IVPB Last administered on 08/06/18 18:25; Admin Dose 100 MLS/HR; Start 07/14/18 at 18:30 Albuterol/ Ipratropium (Duoneb) 3 ml Q2H RESP THERAPY PRN HHN WHEEZING Last administered on 07/21/18 23:06; Admin Dose 3 ML; Start 07/21/18 at 22:00 Citric Acid/ Sodium Citrate (Bicitra) 60 ml DAILY PO Last administered on 09:24; Admin Dose 60 ML; Start 07/23/18 at 09:00 Levothyroxine Sodium (Synthroid) 75 mcg DAILY@06 GTB Last administered on 08/07/18 05:23; Admin Dose 75 MCG; Start 07/28/18 at 06:00 Nystatin (Nystatin Powder) 1 applic BID TOP Last administered on 08/07/18 09:25; Admin Dose 1 APPLIC; Start 07/28/18 at 17:30 IV Flush (NS 10 ml) 10 ml Q8 PRN IV IV PROTOCOL; Start 07/28/18 at 19:00 Amlodipine Besylate (Norvasc) 2.5 mg BID PO Last administered on 08/07/18 09:23; Admin Dose 2.5 MG; Start 07/30/18 at 21:00 Lorazepam (Ativan) 0.5 mg Q4 PRN IV agitation; Start 08/02/18 at 15:00 Metoprolol Tartrate (Lopressor) 75 mg Q8 GTB Last administered on 08/07/18 05:24; Admin Dose 75 MG; Start 08/04/18 at 22:00 Phenytoin (Dilantin) 250 mg Q12@0800,2000 IV Last administered on 08/07/18 08:30; Admin Dose 250 MG; Start 08/05/18 at 09:00 Colistimethate Sodium 90 mg/ Sodium Chloride 100 ml @ 200 mls/hr Q36H IVPB Last administered on 08/07/18 01:37; Admin Dose 200 MLS/HR; Start 08/05/18 at 13:30; Stop 08/29/18 at 23:45 Amiodarone HCl (Cordarone) 200 mg DAILY GTB Last administered on 08/07/18 09:24; Admin Dose 200 MG; Start 08/07/18 at 09:00 CODY SO MD Aug 07, 2018 13:45
--- NOTE | 2018-08-07 14:17 | CONS ---
Assessment/Plan Assessment/Plan Hospital Course (Demo Recall) # sepsis, leukocytosis, SIRS, pulmonary, cardiac - recurrent leukocytosis due to bacteremia (below), improved - s/p septic shock due to pneumonia and C diff colitis - acute on chronic hypoxic respiratory failure, persistent - s/p reintubation 05/12/2018 - s/p re-do trach on 05/29/2018 - recurrent colonization of the anterior neck wound with ESBL+kleb, MRSA, GBS, corynebacteria on 05/06/2018 - h/o pneumonia vs. colonization of the airway by pseudomonas and ESBL+klebsiella - h/o possible, recurrent HCAP due to pseudomonas and ESBL+klebsiella - h/o recurrent HCAP due to MRSA and Enterobacter (culture of tracheal aspirate on 07/16/2017 that was collected at [facility]) . Pt took vancomycin and ceftazidime - h/o decannulation prior to admission - h/o tracheostomy on 06/11/2017 - h/o SIRS from UGIB in 2018 - h/o thoracentesis on 07/18/2017, transudative (protein <2, LDH 279) - h/o bleeding from the trach site in 2018 - h/o septic shock due to pneumonia, ARDS, bacteremia, fungemia in 2018 - h/o ARDS in 2018 - h/o smoking - COPD - h/o ILD per medical record - h/o PAF, improved - echodense structure in posterior leafleat region, differential includes calcification vs vegetation per 2D echo 07/15/2018 # GI - s/p possible ileus or enterocolitis on CT abd/pel 06/15/2018-->follow up CT on 07/15/2018 showed no evidence of urolithiasis, obstructive uropathy or diverticulitis; it showed small to moderate ascites-->CT on 08/04/2018 showed colonic obstruction, mild to moderate ascites, diffuse gallbladder wall thickening - C diff colitis, diagnosed on 05/11/2018. Pt is on pGT vancomycin (05/11/2018-); Pt previously took IV metronidazole (05/11/2018-05/29/2018; restart 05/30/2018- 06/05/18) too - Pt had multiple negative C. diff tests at [facility] and at OSH in the past; none was positive until 05/11/2018 - dysphagia - h/o PEG placement 06/13/2018 - protein calorie malnutrition - h/o coffee ground emesis/UGIB on 12/23/2017 due to deep ulceration of distal esophagus and gastritis on EGD 12/26/2017. No e/o H. pylori - h/o possible appendicitis on CT on 11/22/2017, Pt took ertapenem (11/24/2017- 12/01/2017) - h/o extensive adhesions lower abdominal and pelvis between small bowel to each other and to colon and to abdominal wall, anterior pelvic wall chronic abscess secondary to probably an old perforated diverticulitis, torsion of small bowel around these dense adhesion causing multiple obstructive points - h/o laparoscopic exploration and extensive lysis of adhesions and drainage of anterior pelvic wall abscess 09/16/2017. Cultures were negative, no e/o malignancy. Pt took pip/tazo (09/16/2017-09/26/2017) - h/o EGD and exchange of PEG on 09/01/2017 - h/o partial obstruction mid jejunum in L anterior central pelvis with suggestion of a 3 cm soft tissue mass on CT 08/28/2017 - h/o internal stomal deep ulcer behind the internal bumper, gastritis and esophagitis, Rodriguez's cannot be ruled out, per EGD with biopsy 07/23/2017 - h/o GIB s/p flex sig showed polyp; stool OB negative on 06/29/17 - h/o stool OB positive status - h/o SBO and ileus due to pain meds - h/o mildly elevated CEA # renal/ - s/p recurrent UTI due to pseudomonas (culture on 07/09/2018)-->Garza catheter was replaced on 07/14/2018 - s/p UTI due to MDR, CRE-klebsiella on 06/15/2018. S/p renally dosed amikacin for klebsiella in her urine culture (06/17-06/22/2018) - s/p UTI due to pseudomonas and ESBL+klebsiella on 06/09/2018, Pt took one dose of fosfomycin on 06/10/2018 and cipro 06/12-06/15/2018 - anasarca - started on HD on 05/15/2018, via Juan in R groin - recurrent NATHAN on CKD - 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 Her strain of CRE was sensitive to colistin, Avycaz, and Vabomere but resistant to Zerbaxa (reported on 05/19/2018) - metabolic acidosis - adrenal insufficiency - h/o vaginal bleed in 2018 - h/o colonization of urinary tract by ESBL+klebsiella, VRE - h/o recurrent, symptomatic UTI due to carbapenem-resistant kleb (MDR strain) per urine culture 10/04/17, 10/09/17, 10/21/2017, P took colistin (10/09/2017- 10/15/2017), fosfomycin for carbapenemase-producing klebsiella and VRE on 10/25/2017 and 10/28/2017 - h/o funguria - h/o urinary retention # bloodstream infections - bacteremia d/t pseudomonas aeruginosa 07/09/18, 07/10/18, 07/11/18, 07/12/18, 07/13/18, 07/15/18, 07/17/18. This is associated with PICC because the blood culture from PICC and phlebotomy on 07/13/2018 both grew the same bacteria. The tip of PICC that was removed on 07/14/18 also grew the same bacteria in culture. - Some strains of pseudomonas she had were pansensitive while other strains of pseudomonas were resistant to many antibiotics (MDR). - Pt's strain of pseudomonas on 07/09/2018 was resistant to all except for aminoglycosides (amikacin, gentamicin, tobramycin), colistin (IRASEMA=1, reported to be susceptible) and ceftolozane/tazobactam, but resistant to ceftaz/avibactam - Pt's strain of pseudomonas on was resistant to all except for aminoglycosides (amikacin, gentamicin, tobramycin), colistin (IRASEMA=3, no interpretation) and ceftolozane/tazobactam, but resistant to ceftaz/avibactam 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; Pt declined surgery for MVR per outside medical records; TTE 07/01/17 did not mention any thrombus; s/p voriconazole (05/25/2017-08/01/2017) - h/o bacteremia due to MSSA and proteus s/p ceftriaxone; repeat blood cultures were negative on 06/14/2017 - s/p RUE PICC line placement 07/28/2018 # musculoskeletal and dermatological - dry skin - chronic wound of LLE - h/o infection of wound of LLE - h/o debridement of wound of LLE on 08/06/2017 - h/o recurrent herpes labialis, Pt took acyclovir, valacyclovir - h/o Osler's nodes (eschar) of R toes with erythematous skin; desquamation of the skin and open lacerations on R plantar foot. improved. Probable manifestati on of endocarditis. Pt declined MRI on 08/06/2017 - h/o infection of R toes due to pseudomonas. coagulase negative Staph likely a colonizer - h/o intertrigo of the groin, resolved with nystatin powder - h/o scabies (proven by skin scraping), locally crusted lesion over L scapula, s/p permethrin cream and pGT ivermectin on 08/11/2017, 08/12/2017, 08/19/2017. Repeat skin scraping on 08/21/2017 was negative for scabies # psych, neuro - chronic toxic metabolic encephalopathy, progressing - MRI brain on 07/26/2018 showed no acute intracranial pathology - seizure activity per EEG 07/27/18 - on Dilantin - decreased hearing b/l - h/o critical illness polyneuropathy - anxiety/depression, bipolar d/o, seen by Psychiatry in the past - chronic pain syndrome - h/o medical non-compliance: she would refuse her medications, treatment and straight catheterization in 2018 - complete opacification of the bilateral mastoid air cells per MRI Brain on 07/26/2018 # hematological, vascular - chronic anemia requiring blood transfusion intermittently - macrocytic anemia - aneurysmal dilatation of the distal aorta visualized on CT 06/15/2018 - PVD # other - hypothyroidism with elevated TSH - on Synthroid recommendations: - Pt was evaluated by ENT on 08/04/2018; audiology exam not available/has not been performed. I stopped amikacin IV (07/09/2018-) because of concern for her diminished hearing - continue renally dosed IV colistin (08/05/2018-); Pt's strain of pseudomonas in her blood culture on 07/17/2018 had IRASEMA of 3 for colistin, which is between sensitive (IRASEMA 2) and intermediate (IRASEMA 4) - Continue renally dosed IV cefepime (07/14/2018-); I recommend double coverage because amikacin alone did not clear her bacteremia initially - we recommend 6 weeks of antibiotics for probable endocarditis from the first day of negative blood culture, i.e. 07/18/2018 through 08/29/2018 - if Pt has break-through bacteremia, will request its sensitivity to colistin again - I also recommend repeat transthoracic echo at the end of her antibiotic course - continue vancomycin pGT (07/09/18-) while on IV antibiotics given h/o C. diff. Pt completed IV metronidazole (07/09/18-07/15/18) Consultation Date/Type/Reason Admit Date/Time May 06, 2018 at 17:38 Initial Consult Date 05/10/18 Type of Consult ID Requesting Provider: ROLAND GIRON MD Date/Time of Note DATE: 08/07/18 TIME: 14:05 24 HR Interval Summary Subjective hx not possible: pt non-verbal Exam/Review of Systems Exam Vitals Vital Signs Date Temp Pulse Resp B/P (MAP) Pulse Ox O2 O2 Flow FiO2 Time Delivery Rate 08/07/18 71 13:30 08/07/18 98.2 21 131/71 95 Mechanical 11:22 (91) Ventilator Trach Collar 08/07/18 30 11:05 Intake and Output 08/06/18 08/06/18 08/07/18 1515:00 23:00 07:00 IntakeIntake Total 830 ml 1000 ml OutputOutput Total 400 ml 850 ml 700 ml BalanceBalance -400 ml -20 ml 300 ml Constitutional: non-verbal, frail, obese Psych: confusion Head: normocephalic, atraumatic Eyes: nl conjunctiva, nl lids ENMT: nl external ears & nose, nl nasal mucosa & septum, other (dry mucus mebranes) Neck: other (trach) Respiratory: crackles/rales Cardiovascular: regular rate and rhythm, nl pulses, edema Gastrointestinal: soft, non-tender, surgical scars, other (GT); No distended, No tender Musculoskeletal: nl extremities to inspection Extremities: pitting pedal edema; No edema Neurological: confused, lethargic Skin: rash or lesions (decub) Results Result Diagram: 08/07/18 0632 08/07/18 0632 Results 24hrs Laboratory Tests Test 08/07/18 06:00 08/07/18 06:32 Urine Color YELLOW Urine Clarity CLOUDY A Urine pH 6.0 Urine Specific Free [place] 1.014 Urine Ketones NEGATIVE Urine Nitrite NEGATIVE Urine Bilirubin NEGATIVE Urine Urobilinogen NEGATIVE Urine Leukocyte Esterase 3+ H Urine Microscopic RBC 13 H Urine Microscopic WBC > 182 H Urine Bacteria MODERATE Urine Hemoglobin 1+ H Urine Glucose NEGATIVE Urine Total Protein 2+ H White Blood Count 7.5 Red Blood Count 2.50 L Hemoglobin 8.6 L Hematocrit 28.5 L Mean Corpuscular Volume 114.0 H Mean Corpuscular Hemoglobin 34.4 H Mean Corpuscular Hemoglobin Concent 30.2 L Red Cell Distribution Width 24.8 H Platelet Count 157 Mean Platelet Volume 10.5 H Immature Granulocytes % 0.500 H Neutrophils % 75.7 Lymphocytes % 10.4 L Monocytes % 8.6 Eosinophils % 4.4 Basophils % 0.4 Nucleated Red Blood Cells % 0.0 Immature Granulocytes # 0.040 H Neutrophils # 5.7 Lymphocytes # 0.8 Monocytes # 0.7 Eosinophils # 0.3 Basophils # 0.0 Nucleated Red Blood Cells # 0.0 Sodium Level 138 Potassium Level 3.1 L Chloride Level 107 Carbon Dioxide Level 19 L Anion Gap 12 Blood Urea Nitrogen 91 H Creatinine 2.27 H Est Glomerular Filtrat Rate mL/min Glucose Level 92 Calcium Level 9.1 Medications Medication Current Medications Clonidine (Catapres) 0.1 mg Q6H PRN PO ELEVATED BLOOD PRESSURE Last administered on 08/03/18at 20:27; Admin Dose 0.1 MG; Start 06/03/18 at 03:30 Bumetanide (Bumex) 1 mg BID DIURETICS GTB Last administered on 08/07/18at 05:23; Admin Dose 1 MG; Start 06/11/18 at 18:00 Dicyclomine HCl (Bentyl) 20 mg Q8 PO Last administered on 08/07/18at 05:27; Admin Dose 20 MG; Start 06/27/18 at 22:00 Cholestyramine Resin (Questran Light) 4 gm 0600,1200,1800,2300 GTB Last administered on 08/07/18at 12:29; Admin Dose 4 GM; Start 06/27/18 at 18:00 Vancomycin HCl (Vancomycin Oral Syringe) 125 mg Q6 GTB Last administered on 08/07/18 12:29; Admin Dose 125 MG; Start 07/09/18 at 18:00 Epoetin Zen-epbx (Retacrit (Non-Esrd)) 10,000 unit MoWeFr@1700 SC Last administered on 08/05/18 18:16; Admin Dose 10,000 UNIT; Start 07/13/18 at 17:00 Cefepime HCl 50 ml @ 100 mls/hr Q24H IVPB Last administered on 08/06/18 18:25; Admin Dose 100 MLS/HR; Start 07/14/18 at 18:30 Albuterol/ Ipratropium (Duoneb) 3 ml Q2H RESP THERAPY PRN HHN WHEEZING Last administered on 07/21/18 23:06; Admin Dose 3 ML; Start 07/21/18 at 22:00 Citric Acid/ Sodium Citrate (Bicitra) 60 ml DAILY PO Last administered on 08/07/18 09:24; Admin Dose 60 ML; Start 07/23/18 at 09:00 Levothyroxine Sodium (Synthroid) 75 mcg DAILY@06 GTB Last administered on 08/07/18 05:23; Admin Dose 75 MCG; Start 07/28/18 at 06:00 Nystatin (Nystatin Powder) 1 applic BID TOP Last administered on 08/07/18 09:25; Admin Dose 1 APPLIC; Start 07/28/18 at 17:30 IV Flush (NS 10 ml) 10 ml Q8 PRN IV IV PROTOCOL; Start 07/28/18 at 19:00 Amlodipine Besylate (Norvasc) 2.5 mg BID PO Last administered on 08/07/18 09:23; Admin Dose 2.5 MG; Start 07/30/18 at 21:00 Lorazepam (Ativan) 0.5 mg Q4 PRN IV agitation; Start 08/02/18 at 15:00 Metoprolol Tartrate (Lopressor) 75 mg Q8 GTB Last administered on 08/07/18 05:24; Admin Dose 75 MG; Start 08/04/18 at 22:00 Phenytoin (Dilantin) 250 mg Q12@0800,2000 IV Last administered on 08/07/18at 08:30; Admin Dose 250 MG; Start 08/05/18 at 09:00 Colistimethate Sodium 90 mg/ Sodium Chloride 100 ml @ 200 mls/hr Q36H IVPB Last administered on 08/07/18at 01:37; Admin Dose 200 MLS/HR; Start 08/05/18 at 13:30; Stop 08/29/18 at 23:45 Amiodarone HCl (Cordarone) 200 mg DAILY GTB Last administered on 08/07/18at 09:24; Admin Dose 200 MG; Start 08/07/18 at 09:00 CELESTINE MURPHY M.D. Aug 07, 2018 14:15
[2018-08-07] MEDS: CEFEPIME 2GM/50 ML (PMX) 50 ML IVPB SCH (17:32)
[2018-08-07] MEDS: EPOETIN ALFA-EPBX (NON-ESRD 10,000 UNIT/ML VIAL SC SCH (17:34)
[2018-08-08] VITALS (23 sets, daily range): BP systolic 113–132; BP diastolic 48–66; PULSE 67–78; RESP 18–25
[2018-08-08] MEDS: VANCOMYCIN HCL 250 MG/5ML POSYG GTB SCH ×4 (05:40→23:45)
[2018-08-08] MEDS: BUMETANIDE 1 MG TAB GTB SCH ×2 (05:40→18:51)
[2018-08-08] MEDS: CHOLESTYRAMINE (LIGHT) 4 GM PACKET GTB SCH ×4 (05:40→23:45)
[2018-08-08] MEDS: DICYCLOMINE 10 MG CAP PO SCH ×3 (05:40→21:20)
[2018-08-08] MEDS: LEVOTHYROXINE 75 MCG TAB GTB SCH (05:40)
[2018-08-08] MEDS: METOPROLOL 50 MG TAB GTB SCH ×3 (05:41→21:21)
--- NOTE | 2018-08-08 09:53 | CONS ---
Assessment/Plan Assessment/Plan Assessment/Plan (Daily) Sepsis Acute respiratory failure status post intubation and repeat tracheostomy Acute blood loss anemia History of respiratory failure status post decannulation Preserved ejection fraction echocardiogram 05/10/2018 Paroxysmal atrial fibrillation Acute kidney injury Presumed mitral valve endocarditis -Antibiotics as per infectious disease -Blood pressure trend overall stable, titrate antihypertensives as needed and continue with holding parameters -Remains in sinus rhythm, continue beta-tin as tolerated, decrease amiodarone -Vent management as per pulmonary -Fluid management and electrolytes as per renal -No anticoagulation given recurrent anemia requiring blood transfusions Consultation Date/Type/Reason Admit Date/Time May 06, 2018 at 17:38 Initial Consult Date 05/10/18 Type of Consult Cardiology Requesting Provider: ROLAND GIRON MD Date/Time of Note DATE: 08/08/18 TIME: 09:52 24 HR Interval Summary Free Text/Dictation the aptient with no cahge Exam/Review of Systems Vital Signs Vitals Vital Signs Date Temp Pulse Resp B/P (MAP) Pulse Ox O2 O2 Flow FiO2 Time Delivery Rate 08/08/18 98.6 69 23 120/60 100 07:41 (80) 08/08/18 30 04:55 08/07/18 Mechanical 20:00 Ventilator Trach Collar Intake and Output 08/07/18 08/07/18 08/08/18 1515:00 23:00 07:00 IntakeIntake Total 780 ml 780 ml 680 ml OutputOutput Total 750 ml 650 ml 1100 ml BalanceBalance 30 ml 130 ml -420 ml Labs Result Diagram: 08/08/18 0604 08/08/18 0604 Results 24hrs Laboratory Tests Test 08/08/18 06:04 White Blood Count 7.5 Red Blood Count 2.55 L Hemoglobin 8.8 L Hematocrit 29.4 L Mean Corpuscular Volume 115.3 H Mean Corpuscular Hemoglobin 34.5 H Mean Corpuscular Hemoglobin Concent 29.9 L Red Cell Distribution Width 25.0 H Platelet Count 163 Mean Platelet Volume 10.6 H Immature Granulocytes % 0.400 Neutrophils % 75.3 Lymphocytes % 11.6 L Monocytes % 8.1 Eosinophils % 4.3 Basophils % 0.3 Nucleated Red Blood Cells % 0.0 Immature Granulocytes # 0.030 Neutrophils # 5.6 Lymphocytes # 0.9 Monocytes # 0.6 Eosinophils # 0.3 Basophils # 0.0 Nucleated Red Blood Cells # 0.0 Sodium Level 140 Potassium Level 3.3 L Chloride Level 107 Carbon Dioxide Level 18 L Anion Gap 15 H Blood Urea Nitrogen 88 H Creatinine 2.39 H Est Glomerular Filtrat Rate mL/min Glucose Level 96 Calcium Level 9.4 Phosphorus Level 3.2 Magnesium Level 1.7 Medications Medications Current Medications Clonidine (Catapres) 0.1 mg Q6H PRN PO ELEVATED BLOOD PRESSURE Last administered on 08/03/18 20:27; Admin Dose 0.1 MG; Start 06/03/18 at 03:30 Bumetanide (Bumex) 1 mg BID DIURETICS GTB Last administered on 08/08/18 05:40; Admin Dose 1 MG; Start 06/11/18 at 18:00 Dicyclomine HCl (Bentyl) 20 mg Q8 PO Last administered on 08/08/18 05:40; Admin Dose 20 MG; Start 06/27/18 at 22:00 Cholestyramine Resin (Questran Light) 4 gm 0600,1200,1800,2300 GTB Last administered on 08/08/18 05:40; Admin Dose 4 GM; Start 06/27/18 at 18:00 Vancomycin HCl (Vancomycin Oral Syringe) 125 mg Q6 GTB Last administered on 05:40; Admin Dose 125 MG; Start 07/09/18 at 18:00 Epoetin Zen-epbx (Retacrit (Non-Esrd)) 10,000 unit MoWeFr@1700 SC Last administered on 08/07/18at 17:34; Admin Dose 10,000 UNIT; Start 07/13/18 at 17:00 Cefepime HCl 50 ml @ 100 mls/hr Q24H IVPB Last administered on 08/07/18at 17:32; Admin Dose 100 MLS/HR; Start 07/14/18 at 18:30 Albuterol/ Ipratropium (Duoneb) 3 ml Q2H RESP THERAPY PRN HHN WHEEZING Last administered on 07/21/18 23:06; Admin Dose 3 ML; Start 07/21/18 at 22:00 Citric Acid/ Sodium Citrate (Bicitra) 60 ml DAILY PO Last administered on 08/07/18at 09:24; Admin Dose 60 ML; Start 07/23/18 at 09:00 Levothyroxine Sodium (Synthroid) 75 mcg DAILY@06 GTB Last administered on 05:40; Admin Dose 75 MCG; Start 07/28/18 at 06:00 Nystatin (Nystatin Powder) 1 applic BID TOP Last administered on 08/07/18at 21:27; Admin Dose 1 APPLIC; Start 07/28/18 at 17:30 IV Flush (NS 10 ml) 10 ml Q8 PRN IV IV PROTOCOL; Start 07/28/18 at 19:00 Amlodipine Besylate (Norvasc) 2.5 mg BID PO Last administered on 08/07/18at 21:30; Admin Dose 2.5 MG; Start 07/30/18 at 21:00 Lorazepam (Ativan) 0.5 mg Q4 PRN IV agitation; Start 08/02/18 at 15:00 Metoprolol Tartrate (Lopressor) 75 mg Q8 GTB Last administered on 08/08/18at 05:41; Admin Dose 75 MG; Start 08/04/18 at 22:00 Phenytoin (Dilantin) 250 mg Q12@0800,2000 IV Last administered on 08/07/18at 21:29; Admin Dose 250 MG; Start 08/05/18 at 09:00 Colistimethate Sodium 90 mg/ Sodium Chloride 100 ml @ 200 mls/hr Q36H IVPB Last administered on 08/07/18at 01:37; Admin Dose 200 MLS/HR; Start 08/05/18 at 13:30; Stop 08/29/18 at 23:45 Amiodarone HCl (Cordarone) 200 mg DAILY GTB Last administered on 08/07/18 09:24; Admin Dose 200 MG; Start 08/07/18 at 09:00 CODY SO MD Aug 08, 2018 09:53
--- NOTE | 2018-08-08 10:07 | CONS ---
Assessment/Plan Assessment/Plan Hospital Course (Demo Recall) # sepsis, leukocytosis, SIRS, pulmonary, cardiac - recurrent leukocytosis due to bacteremia (below), improved - s/p septic shock due to pneumonia and C diff colitis - acute on chronic hypoxic respiratory failure, persistent - s/p reintubation 05/12/2018 - s/p re-do trach on 05/29/2018 - recurrent colonization of the anterior neck wound with ESBL+kleb, MRSA, GBS, corynebacteria on 05/06/2018 - h/o pneumonia vs. colonization of the airway by pseudomonas and ESBL+klebsiella - h/o possible, recurrent HCAP due to pseudomonas and ESBL+klebsiella - h/o recurrent HCAP due to MRSA and Enterobacter (culture of tracheal aspirate on 07/16/2017 that was collected at [facility]) . Pt took vancomycin and ceftazidime - h/o decannulation prior to admission - h/o tracheostomy on 06/11/2017 - h/o SIRS from UGIB in 2018 - h/o thoracentesis on 07/18/2017, transudative (protein <2, LDH 279) - h/o bleeding from the trach site in 2018 - h/o septic shock due to pneumonia, ARDS, bacteremia, fungemia in 2018 - h/o ARDS in 2018 - h/o smoking - COPD - h/o ILD per medical record - h/o PAF, improved - echodense structure in posterior leafleat region, differential includes calcification vs vegetation per 2D echo 07/15/2018 # GI - s/p possible ileus or enterocolitis on CT abd/pel 06/15/2018-->follow up CT on 07/15/2018 showed no evidence of urolithiasis, obstructive uropathy or diverticulitis; it showed small to moderate ascites-->CT on 08/04/2018 showed colonic obstruction, mild to moderate ascites, diffuse gallbladder wall thickening - C diff colitis, diagnosed on 05/11/2018. Pt is on pGT vancomycin (05/11/2018-); Pt previously took IV metronidazole (05/11/2018-05/29/2018; restart 05/30/2018- 06/05/18) too - Pt had multiple negative C. diff tests at [facility] and at OSH in the past; none was positive until 05/11/2018 - dysphagia - h/o PEG placement 06/13/2018 - protein calorie malnutrition - h/o coffee ground emesis/UGIB on 12/23/2017 due to deep ulceration of distal esophagus and gastritis on EGD 12/26/2017. No e/o H. pylori - h/o possible appendicitis on CT on 11/22/2017, Pt took ertapenem (11/24/2017- 12/01/2017) - h/o extensive adhesions lower abdominal and pelvis between small bowel to each other and to colon and to abdominal wall, anterior pelvic wall chronic abscess secondary to probably an old perforated diverticulitis, torsion of small bowel around these dense adhesion causing multiple obstructive points - h/o laparoscopic exploration and extensive lysis of adhesions and drainage of anterior pelvic wall abscess 09/16/2017. Cultures were negative, no e/o malignancy. Pt took pip/tazo (09/16/2017-09/26/2017) - h/o EGD and exchange of PEG on 09/01/2017 - h/o partial obstruction mid jejunum in L anterior central pelvis with suggestion of a 3 cm soft tissue mass on CT 08/28/2017 - h/o internal stomal deep ulcer behind the internal bumper, gastritis and esophagitis, Rodriguez's cannot be ruled out, per EGD with biopsy 07/23/2017 - h/o GIB s/p flex sig showed polyp; stool OB negative on 06/29/17 - h/o stool OB positive status - h/o SBO and ileus due to pain meds - h/o mildly elevated CEA # renal/ - s/p recurrent UTI due to pseudomonas (culture on 07/09/2018)-->Garza catheter was replaced on 07/14/2018 - s/p UTI due to MDR, CRE-klebsiella on 06/15/2018. S/p renally dosed amikacin for klebsiella in her urine culture (06/17-06/22/2018) - s/p UTI due to pseudomonas and ESBL+klebsiella on 06/09/2018, Pt took one dose of fosfomycin on 06/10/2018 and cipro 06/12-06/15/2018 - anasarca - started on HD on 05/15/2018, via Juan in R groin - recurrent NATHAN on CKD - 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 Her strain of CRE was sensitive to colistin, Avycaz, and Vabomere but resistant to Zerbaxa (reported on 05/19/2018) - metabolic acidosis - adrenal insufficiency - h/o vaginal bleed in 2018 - h/o colonization of urinary tract by ESBL+klebsiella, VRE - h/o recurrent, symptomatic UTI due to carbapenem-resistant kleb (MDR strain) per urine culture 10/04/17, 10/09/17, 10/21/2017, P took colistin (10/09/2017- 10/15/2017), fosfomycin for carbapenemase-producing klebsiella and VRE on 10/25/2017 and 10/28/2017 - h/o funguria - h/o urinary retention # bloodstream infections - bacteremia d/t pseudomonas aeruginosa 07/09/18, 07/10/18, 07/11/18, 07/12/18, 07/13/18, 07/15/18, 07/17/18. This is associated with PICC because the blood culture from PICC and phlebotomy on 07/13/2018 both grew the same bacteria. The tip of PICC that was removed on 07/14/18 also grew the same bacteria in culture. - Some strains of pseudomonas she had were pansensitive while other strains of pseudomonas were resistant to many antibiotics (MDR). - Pt's strain of pseudomonas on 07/09/2018 was resistant to all except for aminoglycosides (amikacin, gentamicin, tobramycin), colistin (IRASEMA=1, reported to be susceptible) and ceftolozane/tazobactam, but resistant to ceftaz/avibactam - Pt's strain of pseudomonas on was resistant to all except for aminoglycosides (amikacin, gentamicin, tobramycin), colistin (IRASEMA=3, no interpretation) and ceftolozane/tazobactam, but resistant to ceftaz/avibactam 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; Pt declined surgery for MVR per outside medical records; TTE 07/01/17 did not mention any thrombus; s/p voriconazole (05/25/2017-08/01/2017) - h/o bacteremia due to MSSA and proteus s/p ceftriaxone; repeat blood cultures were negative on 06/14/2017 - s/p RUE PICC line placement 07/28/2018 # musculoskeletal and dermatological - dry skin - chronic wound of LLE - h/o infection of wound of LLE - h/o debridement of wound of LLE on 08/06/2017 - h/o recurrent herpes labialis, Pt took acyclovir, valacyclovir - h/o Osler's nodes (eschar) of R toes with erythematous skin; desquamation of the skin and open lacerations on R plantar foot. improved. Probable manifestati on of endocarditis. Pt declined MRI on 08/06/2017 - h/o infection of R toes due to pseudomonas. coagulase negative Staph likely a colonizer - h/o intertrigo of the groin, resolved with nystatin powder - h/o scabies (proven by skin scraping), locally crusted lesion over L scapula, s/p permethrin cream and pGT ivermectin on 08/11/2017, 08/12/2017, 08/19/2017. Repeat skin scraping on 08/21/2017 was negative for scabies # psych, neuro - chronic toxic metabolic encephalopathy, progressing - MRI brain on 07/26/2018 showed no acute intracranial pathology - seizure activity per EEG 07/27/18 - on Dilantin - decreased hearing b/l - h/o critical illness polyneuropathy - anxiety/depression, bipolar d/o, seen by Psychiatry in the past - chronic pain syndrome - h/o medical non-compliance: she would refuse her medications, treatment and straight catheterization in 2018 - complete opacification of the bilateral mastoid air cells per MRI Brain on 07/26/2018 # hematological, vascular - chronic anemia requiring blood transfusion intermittently - macrocytic anemia - aneurysmal dilatation of the distal aorta visualized on CT 06/15/2018 - PVD # other - hypothyroidism with elevated TSH - on Synthroid - Pt was evaluated by ENT on 08/04/2018; audiology exam not available/has not been performed. I stopped amikacin IV (07/09/2018-) because of concern for her diminished hearing recommendations: - continue renally dosed IV colistin (08/05/2018-); Pt's strain of pseudomonas in her blood culture on 07/17/2018 had IRASEMA of 3 for colistin, which is between sensitive (IRASEMA 2) and intermediate (IRASEMA 4) - Continue renally dosed IV cefepime (07/14/2018-); I recommend double coverage because amikacin alone did not clear her bacteremia initially - we recommend 6 weeks of antibiotics for probable endocarditis from the first d ay of negative blood culture, i.e. 07/18/2018 through 08/29/2018 - if Pt has break-through bacteremia, will request its sensitivity to colistin again - I also recommend repeat transthoracic echo at the end of her antibiotic course - continue vancomycin pGT (07/09/18-) while on IV antibiotics given h/o C. diff. Pt completed IV metronidazole (07/09/18-07/15/18) Consultation Date/Type/Reason Admit Date/Time May 06, 2018 at 17:38 Initial Consult Date 05/10/18 Type of Consult ID Requesting Provider: ROLAND GIRON MD Date/Time of Note DATE: 08/08/18 TIME: 10:06 Exam/Review of Systems Exam Vitals Vital Signs Date Temp Pulse Resp B/P (MAP) Pulse Ox O2 O2 Flow FiO2 Time Delivery Rate 08/08/18 98.6 69 23 120/60 100 07:41 (80) 08/08/18 30 04:55 08/07/18 Mechanical 20:00 Ventilator Trach Collar Intake and Output 08/07/18 08/07/18 08/08/18 1515:00 23:00 07:00 IntakeIntake Total 780 ml 780 ml 680 ml OutputOutput Total 750 ml 650 ml 1100 ml BalanceBalance 30 ml 130 ml -420 ml Constitutional: non-verbal Psych: no complaints, nl mood/affect Head: normocephalic, atraumatic Respiratory: clear to auscultation Cardiovascular: regular rate and rhythm Gastrointestinal: soft Results Result Diagram: 08/08/18 0604 08/08/18 0604 Results 24hrs Laboratory Tests Test 08/08/18 06:04 White Blood Count 7.5 Red Blood Count 2.55 L Hemoglobin 8.8 L Hematocrit 29.4 L Mean Corpuscular Volume 115.3 H Mean Corpuscular Hemoglobin 34.5 H Mean Corpuscular Hemoglobin Concent 29.9 L Red Cell Distribution Width 25.0 H Platelet Count 163 Mean Platelet Volume 10.6 H Immature Granulocytes % 0.400 Neutrophils % 75.3 Lymphocytes % 11.6 L Monocytes % 8.1 Eosinophils % 4.3 Basophils % 0.3 Nucleated Red Blood Cells % 0.0 Immature Granulocytes # 0.030 Neutrophils # 5.6 Lymphocytes # 0.9 Monocytes # 0.6 Eosinophils # 0.3 Basophils # 0.0 Nucleated Red Blood Cells # 0.0 Sodium Level 140 Potassium Level 3.3 L Chloride Level 107 Carbon Dioxide Level 18 L Anion Gap 15 H Blood Urea Nitrogen 88 H Creatinine 2.39 H Est Glomerular Filtrat Rate mL/min Glucose Level 96 Calcium Level 9.4 Phosphorus Level 3.2 Magnesium Level 1.7 Medications Medication Current Medications Clonidine (Catapres) 0.1 mg Q6H PRN PO ELEVATED BLOOD PRESSURE Last administered on 08/03/18 20:27; Admin Dose 0.1 MG; Start 06/03/18 at 03:30 Bumetanide (Bumex) 1 mg BID DIURETICS GTB Last administered on 08/08/18 05:40; Admin Dose 1 MG; Start 06/11/18 at 18:00 Dicyclomine HCl (Bentyl) 20 mg Q8 PO Last administered on 08/08/18 05:40; Admin Dose 20 MG; Start 06/27/18 at 22:00 Cholestyramine Resin (Questran Light) 4 gm 0600,1200,1800,2300 GTB Last administered on 08/08/18 05:40; Admin Dose 4 GM; Start 06/27/18 at 18:00 Vancomycin HCl (Vancomycin Oral Syringe) 125 mg Q6 GTB Last administered on 08/08/18 05:40; Admin Dose 125 MG; Start 07/09/18 at 18:00 Epoetin Zen-epbx (Retacrit (Non-Esrd)) 10,000 unit MoWeFr@1700 SC Last administered on 08/07/18 17:34; Admin Dose 10,000 UNIT; Start 07/13/18 at 17:00 Cefepime HCl 50 ml @ 100 mls/hr Q24H IVPB Last administered on 08/07/18 17:32; Admin Dose 100 MLS/HR; Start 07/14/18 at 18:30 Albuterol/ Ipratropium (Duoneb) 3 ml Q2H RESP THERAPY PRN HHN WHEEZING Last administered on 07/21/18 23:06; Admin Dose 3 ML; Start 07/21/18 at 22:00 Citric Acid/ Sodium Citrate (Bicitra) 60 ml DAILY PO Last administered on 08/07/18 09:24; Admin Dose 60 ML; Start 07/23/18 at 09:00 Levothyroxine Sodium (Synthroid) 75 mcg DAILY@06 GTB Last administered on 08/08/18 05:40; Admin Dose 75 MCG; Start 07/28/18 at 06:00 Nystatin (Nystatin Powder) 1 applic BID TOP Last administered on 08/07/18 21:27; Admin Dose 1 APPLIC; Start 07/28/18 at 17:30 IV Flush (NS 10 ml) 10 ml Q8 PRN IV IV PROTOCOL; Start 07/28/18 at 19:00 Amlodipine Besylate (Norvasc) 2.5 mg BID PO Last administered on 08/07/18 21:30; Admin Dose 2.5 MG; Start 07/30/18 at 21:00 Lorazepam (Ativan) 0.5 mg Q4 PRN IV agitation; Start 08/02/18 at 15:00 Metoprolol Tartrate (Lopressor) 75 mg Q8 GTB Last administered on 08/08/18 05:41; Admin Dose 75 MG; Start 08/04/18 at 22:00 Phenytoin (Dilantin) 250 mg Q12@0800,2000 IV Last administered on 08/07/18 21:29; Admin Dose 250 MG; Start 08/05/18 at 09:00 Colistimethate Sodium 90 mg/ Sodium Chloride 100 ml @ 200 mls/hr Q36H IVPB Last administered on 08/07/18 01:37; Admin Dose 200 MLS/HR; Start 08/05/18 at 13:30; Stop 08/29/18 at 23:45 Amiodarone HCl (Cordarone) 200 mg DAILY GTB Last administered on 08/07/18 09:24; Admin Dose 200 MG; Start 08/07/18 at 09:00 MANN VALDEZ MD Aug 08, 2018 10:07
[2018-08-08] MEDS: CITRIC ACID/NA CITRATE 30 ML CUP PO SCH (10:18)
[2018-08-08] MEDS: AMIODARONE 200 MG TAB GTB SCH (10:19)
[2018-08-08] MEDS: AMLODIPINE 2.5 MG TAB PO SCH ×2 (10:19→21:21)
[2018-08-08] MEDS: NYSTATIN 30 GM POWDER BTL TOP SCH ×2 (10:20→21:22)
[2018-08-08] MEDS: BALSAM PERU/CASTOR OIL 60 GM TUBE TOP SCH ×2 (10:20→21:22)
[2018-08-08] MEDS: PHENYTOIN 100 MG INJ IV SCH ×2 (10:50→21:20)
--- NOTE | 2018-08-08 11:37 | CONS ---
Consult Date/Type/Reason Admit Date/Time May 06, 2018 at 17:38 Initial Consult Date 05/10/18 Type of Consultation: neph Requesting Provider: ROLAND GIRON MD Date/Time of Note DATE: 08/08/18 TIME: 11:32 Subjective The patient is stable. No events overnight. continues good uo. poc reviewed with dr. antony. OBJECTIVE: HEENT: Head is normocephalic. NECK: Supple. HEART: Regular rate. LUNGS: Show diminished breath sounds at the base. ABDOMEN: Soft, nontender to palpation without rebound or guarding. EXTREMITIES: Negative for clubbing, cyanosis. Positive edema. DERMATOLOGIC: No rashes. MUSCULOSKELETAL: No joint effusion. NEUROLOGIC: No change in exam. MEDICATIONS: The patient's medications have been reviewed. LABORATORY DATA: Has been reviewed. IMAGING STUDIES: Have been reviewed. ASSESSMENT AND PLAN: 1. Nonoliguric acute kidney injury with previous baseline creatinine 2.0 mg/dL. Etiology is secondary to acute tubular necrosis. The patient is status post hemodialysis. Renal function is stabilizing. Continue current treatment plan. Supportive care. Renally dose all meds. 2. Volume overload secondary to , chronic kidney disease. The patient remains volume-overloaded. Continue Bumex. Will add metolazone intermittently to augment diuresis. 3. Hypokalemia. Continue to monitor and replete. 4. Anemia. Monitor hemoglobin and hematocrit levels. Continue Epogen. 5. Mineral bone disorder, monitor calcium and phosphorus levels. 6. Ventilator-dependent respiratory failure. Vent settings and ABG was reviewed. Continue to monitor. 7. Sepsis secondary to endocarditis. The patient has completed an antibiotic course. 8. Dysphagia. Continue tube feedings. 9. Encephalopathy. Continue to monitor. 10. History of Clostridium difficile. 11. Lower extremity wounds. 12. Hypomagnesemia. Continue to monitor and replete. Objective Vitals Vital Signs Date Temp Pulse Resp B/P (MAP) Pulse Ox O2 O2 Flow FiO2 Time Delivery Rate 08/08/18 76 08:00 08/08/18 98.6 23 120/60 100 07:41 (80) 08/08/18 30 04:55 08/07/18 Mechanical 20:00 Ventilator Trach Collar Intake and Output 08/07/18 08/07/18 08/08/18 1515:00 23:00 07:00 IntakeIntake Total 780 ml 780 ml 680 ml OutputOutput Total 750 ml 650 ml 1100 ml BalanceBalance 30 ml 130 ml -420 ml Results/Medications Result Diagram: 08/08/18 0604 08/08/18 0604 Results 24 hrs Laboratory Tests Test 08/08/18 06:04 White Blood Count 7.5 Red Blood Count 2.55 L Hemoglobin 8.8 L Hematocrit 29.4 L Mean Corpuscular Volume 115.3 H Mean Corpuscular Hemoglobin 34.5 H Mean Corpuscular Hemoglobin Concent 29.9 L Red Cell Distribution Width 25.0 H Platelet Count 163 Mean Platelet Volume 10.6 H Immature Granulocytes % 0.400 Neutrophils % 75.3 Lymphocytes % 11.6 L Monocytes % 8.1 Eosinophils % 4.3 Basophils % 0.3 Nucleated Red Blood Cells % 0.0 Immature Granulocytes # 0.030 Neutrophils # 5.6 Lymphocytes # 0.9 Monocytes # 0.6 Eosinophils # 0.3 Basophils # 0.0 Nucleated Red Blood Cells # 0.0 Sodium Level 140 Potassium Level 3.3 L Chloride Level 107 Carbon Dioxide Level 18 L Anion Gap 15 H Blood Urea Nitrogen 88 H Creatinine 2.39 H Est Glomerular Filtrat Rate mL/min Glucose Level 96 Calcium Level 9.4 Phosphorus Level 3.2 Magnesium Level 1.7 Home Meds Reported Medications Zinc Sulfate* (Zinc Sulfate*) 220 Mg Tablet, 220 MG GTB DAILY, TAB START DATE 05/04/18, END DATE 06/03/18 05/06/18 Diclofenac Sodium* (Voltaren* Gel) 1% -100 Gm Gel, 2 GM TOP TID, #1 TUB 05/06/18 Ascorbic Acid (Vitamin C) 500 Mg Tab, 500 MG GTB DAILY, TAB 05/06/18 Quetiapine Fumarate* (Seroquel*) 100 Mg Tablet, 600 MG GTB HS, #30 TAB 05/06/18 Protein Supplement (Promod) 946 Ml Liquid, 30 ML GTB BID 05/06/18 Epoetin Zen (Procrit) 20,000 Unit/1 Ml Vial, 38376 UNIT IJ Q TUE for FOR ANEMIA OF CKD, VIAL HOLD IFHGB IS EQUAL OR GREATER THAN 11 05/06/18 Ondansetron Hcl* (Ondansetron Hcl* Liq) 4 Mg/5 Ml Solution, 4 MG GTB Q6H PRN for NAUSEA AND/OR VOMITING, ML 05/06/18 Multivitamin with Minerals (Multivitamins with Minerals) 1 Each Tablet, 1 EACH GTB QAM, TAB 05/06/18 Metoprolol Tartrate* (Lopressor*) 25 Mg Tab, 25 MG GTB BID, #60 TAB HOLD FOR SBP<110 OR HR<60 05/06/18 Lorazepam* (Ativan* Intensol) 2 Mg/Ml Soln, 0.5 MG IV* Q6H PRN for ANXIETY, #1 BOTTLE START DATE 04/02/18, END DATE 06/01/18 05/06/18 Lidocaine (Lidocaine) 1 Each Adh..patch, 1 EACH TP Q12H 5% 05/06/18 Ipratropium-Albuterol (Ipratropium-Albuterol) 0.5-3 Mg/3 Ml Ampul.neb, 3 ML INHALATION Q6 PRN for BRONCHOSPASM, #30 VIAL 05/06/18 Ipratropium-Albuterol (Ipratropium-Albuterol) 0.5-3 Mg/3 Ml Ampul.neb, 3 ML INHALATION Q2H PRN for BRONCHOSPASM, #30 VIAL 05/06/18 Famotidine* (Famotidine*) 20 Mg Tablet, 20 MG GTB BID, #60 TAB 05/06/18 Valproic Acid* (Depakene*) 250 Mg/5 Ml Udc Syrup, 100 MG GTB QHS, ML 05/06/18 Clonidine Hcl* (Clonidine Hcl*) 0.1 Mg Tab, 0.1 MG GTB Q6 PRN for NEEDED, TAB FOR SBP>160 OR DBP>90 05/06/18 Aspirin* (Aspirin* Chew) 81 Mg Tab.chew, 81 MG GTB DAILY, TAB.CHEW 05/06/18 Medications Current Medications Clonidine (Catapres) 0.1 mg Q6H PRN PO ELEVATED BLOOD PRESSURE Last administered on 08/03/18at 20:27; Admin Dose 0.1 MG; Start 06/03/18 at 03:30 Bumetanide (Bumex) 1 mg BID DIURETICS GTB Last administered on 08/08/18at 05:40; Admin Dose 1 MG; Start 06/11/18 at 18:00 Dicyclomine HCl (Bentyl) 20 mg Q8 PO Last administered on 08/08/18 05:40; Admin Dose 20 MG; Start 06/27/18 at 22:00 Cholestyramine Resin (Questran Light) 4 gm 0600,1200,1800,2300 GTB Last a dministered on 08/08/18 05:40; Admin Dose 4 GM; Start 06/27/18 at 18:00 Vancomycin HCl (Vancomycin Oral Syringe) 125 mg Q6 GTB Last administered on 08/08/18 05:40; Admin Dose 125 MG; Start 07/09/18 at 18:00 Epoetin Zen-epbx (Retacrit (Non-Esrd)) 10,000 unit MoWeFr@1700 SC Last administered on 08/07/18 17:34; Admin Dose 10,000 UNIT; Start 07/13/18 at 17:00 Cefepime HCl 50 ml @ 100 mls/hr Q24H IVPB Last administered on 08/07/18 17:32; Admin Dose 100 MLS/HR; Start 07/14/18 at 18:30 Albuterol/ Ipratropium (Duoneb) 3 ml Q2H RESP THERAPY PRN HHN WHEEZING Last administered on 07/21/18 23:06; Admin Dose 3 ML; Start 07/21/18 at 22:00 Citric Acid/ Sodium Citrate (Bicitra) 60 ml DAILY PO Last administered on 08/08/18 10:18; Admin Dose 60 ML; Start 07/23/18 at 09:00 Levothyroxine Sodium (Synthroid) 75 mcg DAILY@06 GTB Last administered on 08/08/18 05:40; Admin Dose 75 MCG; Start 07/28/18 at 06:00 Nystatin (Nystatin Powder) 1 applic BID TOP Last administered on 08/08/18 10:20; Admin Dose 1 APPLIC; Start 07/28/18 at 17:30 IV Flush (NS 10 ml) 10 ml Q8 PRN IV IV PROTOCOL; Start 07/28/18 at 19:00 Amlodipine Besylate (Norvasc) 2.5 mg BID PO Last administered on 08/08/18 10:19; Admin Dose 2.5 MG; Start 07/30/18 at 21:00 Lorazepam (Ativan) 0.5 mg Q4 PRN IV agitation; Start 08/02/18 at 15:00 Metoprolol Tartrate (Lopressor) 75 mg Q8 GTB Last administered on 08/08/18at 05:41; Admin Dose 75 MG; Start 08/04/18 at 22:00 Phenytoin (Dilantin) 250 mg Q12@0800,2000 IV Last administered on 08/08/18at 10:50; Admin Dose 250 MG; Start 08/05/18 at 09:00 Colistimethate Sodium 90 mg/ Sodium Chloride 100 ml @ 200 mls/hr Q36H IVPB Last administered on 08/07/18at 01:37; Admin Dose 200 MLS/HR; Start 08/05/18 at 13:30; Stop 08/29/18 at 23:45 Amiodarone HCl (Cordarone) 200 mg DAILY GTB Last administered on 08/08/18at 10:19; Admin Dose 200 MG; Start 08/07/18 at 09:00 Assessment/Plan Hospital Course (Demo Recall) 1. Nonoliguric acute kidney injury with previous baseline creatinine 2.0 mg/dL. Etiology is secondary to acute tubular necrosis. The patient is status post hemodialysis. Renal function is stabilizing. Continue current treatment plan. Supportive care. Renally dose all meds. on colistin which is nephrotoxic. monitor very closely. 2. Volume overload likely nephrogenic. The patient continues to be volume- overloaded. Judicious diuresis. Continue Bumex. sp add metolazone intermittently to augment diuresis. 3. Hypokalemia. Continue to monitor and replete. 4. Anemia. Monitor hemoglobin and hematocrit levels. Continue Epogen. 5. Mineral bone disorder, monitor calcium and phosphorus levels. 6. Ventilator-dependent respiratory failure. Vent settings and ABG was reviewed. Continue to monitor. 7. Sepsis secondary to endocarditis. The patient has completed an antibiotic course. 8. Dysphagia. Continue tube feedings. 9. Encephalopathy. Continue to monitor. 10. History of Clostridium difficile. 11. Lower extremity wounds. 12. Hypomagnesemia. Continue to monitor and replete. LANA LERMA MD Aug 08, 2018 11:37
[2018-08-08] MEDS: COLISTIMETHATE IVPB SCH (12:55)
[2018-08-08] MEDS: SOD CHLORIDE 0.9% IVPB SCH (12:55)
--- NOTE | 2018-08-08 14:17 | PN ---
Date/Time of Note Date/Time of Note DATE: 08/08/18 TIME: 14:15 Assessment/Plan VTE Prophylaxis Risk score (from Nsg)>0 risk: 10 SCD applied (from Nsg): Yes Lines/Catheters IV Catheter Type (from Nrsg): PICC Line Urinary Cath still in place: Yes Reason Cath still needed: urinary retention Assessment/Plan Assessment/Plan -Possible acute metabolic encephalopathy. Dr. Mathew is following in neurology consultation. -Seizures, continue Dilantin -Persistent leukocytosis with Pseudomonas bacteremia 2 to PICC line infection, continue antibiotics per ID. Dr. Doyle is following in infection disease consultation. 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 TTE 07/16/18 with notion of echodense s tructure on the mitral valve, calcification vs vegetation. Dr. Scanlon is following in cardiology consultation. Patient needs IV cefepime and amikacin for treatment presumed endocarditis until 08/29/2018 per ID recommendations. -Hypothyroidism, continue levothyroxine. -MDR Klebsiella urinary tract infection, completed treatment with amikacin. -Atrial fibrillation was rapid ventricular response, patient remains in sinus rhythm continue metoprolol and amiodarone. -S/p septic shock secondary to urinary tract infection, anterior neck soft tissue infection, and C. difficile colitis. -C-diff colitis,resolved. -Acute respiratory failure requiring intubation and ventilatory support. Dr. Lambert is following in pulmonology consultation. -S/p tracheostomy on 05/29/18. -Acute kidney injury on chronic kidney disease. Started on HD this admission with recovery of renal function. Dr. Mckeon is following in nephrology consultation. -Anemia of chronic inflammation, stool for OB is negative, status post blood transfusion. Continue Epogen. -Metabolic acidosis, resolved. -Acute diastolic congestive heart failure. -Paroxysmal atrial fibrillation -COPD -Dysphagia with PEG. -G-tube mild malfunction, changed by GI Dr. Carolina is following in gastroente rology consultation. -Obesity -Critical care myopathy Further recommendations based on clinical course. Plan of care discussed with Dr. Eisenberg. Result Diagram: 08/08/18 0604 08/08/18 0604 Results 24hrs Laboratory Tests Test 08/08/18 06:04 White Blood Count 7.5 Red Blood Count 2.55 L Hemoglobin 8.8 L Hematocrit 29.4 L Mean Corpuscular Volume 115.3 H Mean Corpuscular Hemoglobin 34.5 H Mean Corpuscular Hemoglobin Concent 29.9 L Red Cell Distribution Width 25.0 H Platelet Count 163 Mean Platelet Volume 10.6 H Immature Granulocytes % 0.400 Neutrophils % 75.3 Lymphocytes % 11.6 L Monocytes % 8.1 Eosinophils % 4.3 Basophils % 0.3 Nucleated Red Blood Cells % 0.0 Immature Granulocytes # 0.030 Neutrophils # 5.6 Lymphocytes # 0.9 Monocytes # 0.6 Eosinophils # 0.3 Basophils # 0.0 Nucleated Red Blood Cells # 0.0 Sodium Level 140 Potassium Level 3.3 L Chloride Level 107 Carbon Dioxide Level 18 L Anion Gap 15 H Blood Urea Nitrogen 88 H Creatinine 2.39 H Est Glomerular Filtrat Rate mL/min Glucose Level 96 Calcium Level 9.4 Phosphorus Level 3.2 Magnesium Level 1.7 Exam/Review of Systems Exam Vitals Vital Signs Date Temp Pulse Resp B/P (MAP) Pulse Ox O2 O2 Flow FiO2 Time Delivery Rate 08/08/18 78 12:00 08/08/18 98.5 22 130/55 99 11:59 (80) 08/08/18 30 11:20 08/07/18 Mechanical 20:00 Ventilator Trach Collar Intake and Output 08/07/18 08/07/18 08/08/18 1515:00 23:00 07:00 IntakeIntake Total 780 ml 780 ml 680 ml OutputOutput Total 750 ml 650 ml 1100 ml BalanceBalance 30 ml 130 ml -420 ml Results Results 24hrs Laboratory Tests Test 08/08/18 06:04 White Blood Count 7.5 Red Blood Count 2.55 L Hemoglobin 8.8 L Hematocrit 29.4 L Mean Corpuscular Volume 115.3 H Mean Corpuscular Hemoglobin 34.5 H Mean Corpuscular Hemoglobin Concent 29.9 L Red Cell Distribution Width 25.0 H Platelet Count 163 Mean Platelet Volume 10.6 H Immature Granulocytes % 0.400 Neutrophils % 75.3 Lymphocytes % 11.6 L Monocytes % 8.1 Eosinophils % 4.3 Basophils % 0.3 Nucleated Red Blood Cells % 0.0 Immature Granulocytes # 0.030 Neutrophils # 5.6 Lymphocytes # 0.9 Monocytes # 0.6 Eosinophils # 0.3 Basophils # 0.0 Nucleated Red Blood Cells # 0.0 Sodium Level 140 Potassium Level 3.3 L Chloride Level 107 Carbon Dioxide Level 18 L Anion Gap 15 H Blood Urea Nitrogen 88 H Creatinine 2.39 H Est Glomerular Filtrat Rate mL/min Glucose Level 96 Calcium Level 9.4 Phosphorus Level 3.2 Magnesium Level 1.7 Medications Medication Current Medications Clonidine (Catapres) 0.1 mg Q6H PRN PO ELEVATED BLOOD PRESSURE Last administered on 08/03/18 20:27; Admin Dose 0.1 MG; Start 06/03/18 at 03:30 Bumetanide (Bumex) 1 mg BID DIURETICS GTB Last administered on 08/08/18 05:40; Admin Dose 1 MG; Start 06/11/18 at 18:00 Dicyclomine HCl (Bentyl) 20 mg Q8 PO Last administered on 08/08/18 12:55; Admin Dose 20 MG; Start 06/27/18 at 22:00 Cholestyramine Resin (Questran Light) 4 gm 0600,1200,1800,2300 GTB Last administered on 08/08/18 12:58; Admin Dose 4 GM; Start 06/27/18 at 18:00 Vancomycin HCl (Vancomycin Oral Syringe) 125 mg Q6 GTB Last administered on 08/08/18 12:55; Admin Dose 125 MG; Start 07/09/18 at 18:00 Epoetin Zen-epbx (Retacrit (Non-Esrd)) 10,000 unit MoWeFr@1700 SC Last administered on 08/07/18 17:34; Admin Dose 10,000 UNIT; Start 07/13/18 at 17:00 Cefepime HCl 50 ml @ 100 mls/hr Q24H IVPB Last administered on 08/07/18 17:32; Admin Dose 100 MLS/HR; Start 07/14/18 at 18:30 Albuterol/ Ipratropium (Duoneb) 3 ml Q2H RESP THERAPY PRN HHN WHEEZING Last administered on 07/21/18 23:06; Admin Dose 3 ML; Start 07/21/18 at 22:00 Citric Acid/ Sodium Citrate (Bicitra) 60 ml DAILY PO Last administered on 08/08/18 10:18; Admin Dose 60 ML; Start 07/23/18 at 09:00 Levothyroxine Sodium (Synthroid) 75 mcg DAILY@06 GTB Last administered on 08/08 05:40; Admin Dose 75 MCG; Start 07/28/18 at 06:00 Nystatin (Nystatin Powder) 1 applic BID TOP Last administered on 08/08/18 10:20; Admin Dose 1 APPLIC; Start 07/28/18 at 17:30 IV Flush (NS 10 ml) 10 ml Q8 PRN IV IV PROTOCOL; Start 07/28/18 at 19:00 Amlodipine Besylate (Norvasc) 2.5 mg BID PO Last administered on 08/08/18 10:19; Admin Dose 2.5 MG; Start 07/30/18 at 21:00 Lorazepam (Ativan) 0.5 mg Q4 PRN IV agitation; Start 08/02/18 at 15:00 Metoprolol Tartrate (Lopressor) 75 mg Q8 GTB Last administered on 08/08/18at 12:56; Admin Dose 75 MG; Start 08/04/18 at 22:00 Phenytoin (Dilantin) 250 mg Q12@0800,2000 IV Last administered on 08/08/18at 10:50; Admin Dose 250 MG; Start 08/05/18 at 09:00 Colistimethate Sodium 90 mg/ Sodium Chloride 100 ml @ 200 mls/hr Q36H IVPB Last administered on 08/08/18at 12:55; Admin Dose 200 MLS/HR; Start 08/05/18 at 13:30; Stop 08/29/18 at 23:45 Amiodarone HCl (Cordarone) 200 mg DAILY GTB Last administered on 08/08/18at 10:19; Admin Dose 200 MG; Start 08/07/18 at 09:00 KERON MORAN Aug 08, 2018 14:17
[2018-08-08] MEDS ORDERED: POTASSIUM CHLORIDE 100 ML IVPB ONE (14:30)
[2018-08-08] MEDS: [UNRECOGNIZED DRUG - REMARK] XX SCH (18:30)
[2018-08-08] MEDS: CEFEPIME 2GM/50 ML (PMX) 50 ML IVPB SCH (18:51)
[2018-08-09] VITALS (23 sets, daily range): BP systolic 108–122; BP diastolic 51–70; PULSE 73–108; RESP 13–27
[2018-08-09] MEDS: [UNRECOGNIZED DRUG - REMARK] XX SCH ×3 (02:30→16:29)
[2018-08-09] MEDS: DICYCLOMINE 10 MG CAP PO SCH ×3 (06:10→22:59)
[2018-08-09] MEDS: LEVOTHYROXINE 75 MCG TAB GTB SCH (06:10)
[2018-08-09] MEDS: BUMETANIDE 1 MG TAB GTB SCH ×2 (06:10→17:42)
[2018-08-09] MEDS: METOPROLOL 50 MG TAB GTB SCH ×3 (06:11→23:00)
[2018-08-09] MEDS: VANCOMYCIN HCL 250 MG/5ML POSYG GTB SCH ×4 (06:25→23:02)
[2018-08-09] MEDS: CHOLESTYRAMINE (LIGHT) 4 GM PACKET GTB SCH ×4 (06:28→22:56)
--- NOTE | 2018-08-09 08:40 | CONS ---
Consult Date/Type/Reason Admit Date/Time May 06, 2018 at 17:38 Initial Consult Date 05/10/18 Type of Consultation: neph Requesting Provider: ROLAND GIRON MD Date/Time of Note DATE: 08/09/18 TIME: 08:37 Subjective The patient is stable. No events overnight. continues good uo. poc reviewed with dr. antony. on bumex 1mg bid. labs pending this am. OBJECTIVE: HEENT: Head is normocephalic. NECK: Supple. HEART: Regular rate. LUNGS: Show diminished breath sounds at the base. ABDOMEN: Soft, nontender to palpation without rebound or guarding. EXTREMITIES: Negative for clubbing, cyanosis. Positive edema. DERMATOLOGIC: No rashes. MUSCULOSKELETAL: No joint effusion. NEUROLOGIC: No change in exam. MEDICATIONS: The patient's medications have been reviewed. Objective Vitals Vital Signs Date Temp Pulse Resp B/P (MAP) Pulse Ox O2 O2 Flow FiO2 Time Delivery Rate 08/09/18 98.1 76 13 122/70 97 08:00 (87) 08/09/18 30 04:50 08/07/18 Mechanical 20:00 Ventilator Trach Collar Intake and Output 08/08/18 08/08/18 08/09/18 1515:00 23:00 07:00 IntakeIntake Total 1150 ml OutputOutput Total 1900 ml 500 ml BalanceBalance -750 ml -500 ml Results/Medications Result Diagram: 08/08/18 0604 08/08/18 0604 Home Meds Reported Medications Zinc Sulfate* (Zinc Sulfate*) 220 Mg Tablet, 220 MG GTB DAILY, TAB START DATE 05/04/18, END DATE 06/03/18 05/06/18 Diclofenac Sodium* (Voltaren* Gel) 1% -100 Gm Gel, 2 GM TOP TID, #1 TUB 05/06/18 Ascorbic Acid (Vitamin C) 500 Mg Tab, 500 MG GTB DAILY, TAB 05/06/18 Quetiapine Fumarate* (Seroquel*) 100 Mg Tablet, 600 MG GTB HS, #30 TAB 05/06/18 Protein Supplement (Promod) 946 Ml Liquid, 30 ML GTB BID 05/06/18 Epoetin Zen (Procrit) 20,000 Unit/1 Ml Vial, 57143 UNIT IJ Q TUE for FOR ANEMIA OF CKD, VIAL HOLD IFHGB IS EQUAL OR GREATER THAN 11 05/06/18 Ondansetron Hcl* (Ondansetron Hcl* Liq) 4 Mg/5 Ml Solution, 4 MG GTB Q6H PRN for NAUSEA AND/OR VOMITING, ML 05/06/18 Multivitamin with Minerals (Multivitamins with Minerals) 1 Each Tablet, 1 EACH GTB QAM, TAB 05/06/18 Metoprolol Tartrate* (Lopressor*) 25 Mg Tab, 25 MG GTB BID, #60 TAB HOLD FOR SBP<110 OR HR<60 05/06/18 Lorazepam* (Ativan* Intensol) 2 Mg/Ml Soln, 0.5 MG IV* Q6H PRN for ANXIETY, #1 BOTTLE START DATE 04/02/18, END DATE 06/01/18 05/06/18 Lidocaine (Lidocaine) 1 Each Adh..patch, 1 EACH TP Q12H 5% 05/06/18 Ipratropium-Albuterol (Ipratropium-Albuterol) 0.5-3 Mg/3 Ml Ampul.neb, 3 ML INHALATION Q6 PRN for BRONCHOSPASM, #30 VIAL 05/06/18 Ipratropium-Albuterol (Ipratropium-Albuterol) 0.5-3 Mg/3 Ml Ampul.neb, 3 ML INHALATION Q2H PRN for BRONCHOSPASM, #30 VIAL 05/06/18 Famotidine* (Famotidine*) 20 Mg Tablet, 20 MG GTB BID, #60 TAB 05/06/18 Valproic Acid* (Depakene*) 250 Mg/5 Ml Udc Syrup, 100 MG GTB QHS, ML 05/06/18 Clonidine Hcl* (Clonidine Hcl*) 0.1 Mg Tab, 0.1 MG GTB Q6 PRN for NEEDED, TAB FOR SBP>160 OR DBP>90 05/06/18 Aspirin* (Aspirin* Chew) 81 Mg Tab.chew, 81 MG GTB DAILY, TAB.CHEW 05/06/18 Medications Current Medications Clonidine (Catapres) 0.1 mg Q6H PRN PO ELEVATED BLOOD PRESSURE Last admini stered on 08/03/18at 20:27; Admin Dose 0.1 MG; Start 06/03/18 at 03:30 Bumetanide (Bumex) 1 mg BID DIURETICS GTB Last administered on 08/09/18 06:10; Admin Dose 1 MG; Start 06/11/18 at 18:00 Dicyclomine HCl (Bentyl) 20 mg Q8 PO Last administered on 08/09/18 06:10; Admin Dose 20 MG; Start 06/27/18 at 22:00 Cholestyramine Resin (Questran Light) 4 gm 0600,1200,1800,2300 GTB Last administered on 08/09/18 06:28; Admin Dose 4 GM; Start 06/27/18 at 18:00 Vancomycin HCl (Vancomycin Oral Syringe) 125 mg Q6 GTB Last administered on 08/09/18 06:25; Admin Dose 125 MG; Start 07/09/18 at 18:00 Epoetin Zen-epbx (Retacrit (Non-Esrd)) 10,000 unit MoWeFr@1700 SC Last administered on 08/07/18 17:34; Admin Dose 10,000 UNIT; Start 07/13/18 at 17:00 Cefepime HCl 50 ml @ 100 mls/hr Q24H IVPB Last administered on 08/08/18 18:51; Admin Dose 100 MLS/HR; Start 07/14/18 at 18:30 Albuterol/ Ipratropium (Duoneb) 3 ml Q2H RESP THERAPY PRN HHN WHEEZING Last administered on 07/21/18 23:06; Admin Dose 3 ML; Start 07/21/18 at 22:00 Citric Acid/ Sodium Citrate (Bicitra) 60 ml DAILY PO Last administered on 08/08/18 10:18; Admin Dose 60 ML; Start 07/23/18 at 09:00 Levothyroxine Sodium (Synthroid) 75 mcg DAILY@06 GTB Last administered on 08/09/18 06:10; Admin Dose 75 MCG; Start 07/28/18 at 06:00 Nystatin (Nystatin Powder) 1 applic BID TOP Last administered on 08/08/18 21:22; Admin Dose 1 APPLIC; Start 07/28/18 at 17:30 IV Flush (NS 10 ml) 10 ml Q8 PRN IV IV PROTOCOL; Start 07/28/18 at 19:00 Amlodipine Besylate (Norvasc) 2.5 mg BID PO Last administered on 08/08/18at 21:21; Admin Dose 2.5 MG; Start 07/30/18 at 21:00 Lorazepam (Ativan) 0.5 mg Q4 PRN IV agitation; Start 08/02/18 at 15:00 Metoprolol Tartrate (Lopressor) 75 mg Q8 GTB Last administered on 08/09/18at 06:11; Admin Dose 75 MG; Start 08/04/18 at 22:00 Phenytoin (Dilantin) 250 mg Q12@0800,2000 IV Last administered on 08/08/18at 21 :20; Admin Dose 250 MG; Start 08/05/18 at 09:00 Colistimethate Sodium 90 mg/ Sodium Chloride 100 ml @ 200 mls/hr Q36H IVPB Last administered on 08/08/18at 12:55; Admin Dose 200 MLS/HR; Start 08/05/18 at 13:30; Stop 08/29/18 at 23:45 Amiodarone HCl (Cordarone) 200 mg DAILY GTB Last administered on 08/08/18at 10:19; Admin Dose 200 MG; Start 08/07/18 at 09:00 Miscellaneous Information (*Order Clarification Bulletin) MEDICATION REQUIRES CLARIFICATI... Q8H XX ; Start 08/08/18 at 18:30 Assessment/Plan Hospital Course (Demo Recall) 1. Nonoliguric acute kidney injury with previous baseline creatinine 2.0 mg/dL. Etiology is secondary to acute tubular necrosis. The patient is status post hemodialysis. Renal function is stabilizing. Continue current treatment plan. Supportive care. Renally dose all meds. on colistin which is nephrotoxic. monitor very closely. 2. Volume overload likely nephrogenic. The patient continues to be volume- overloaded. Judicious diuresis. Continue Bumex. sp add metolazone intermittently to augment diuresis. 3. Hypokalemia. Continue to monitor and replete. 4. Anemia. Monitor hemoglobin and hematocrit levels. Continue Epogen. 5. Mineral bone disorder, monitor calcium and phosphorus levels. 6. Ventilator-dependent respiratory failure. Vent settings and ABG was reviewed. Continue to monitor. 7. Sepsis secondary to endocarditis. The patient has completed an antibiotic course. 8. Dysphagia. Continue tube feedings. 9. Encephalopathy. Continue to monitor. 10. History of Clostridium difficile. 11. Lower extremity wounds. 12. Hypomagnesemia. Continue to monitor and replete. LANA LERMA MD Aug 09, 2018 08:40
[2018-08-09] MEDS: CITRIC ACID/NA CITRATE 30 ML CUP PO SCH (09:10)
[2018-08-09] MEDS: AMIODARONE 200 MG TAB GTB SCH (09:11)
[2018-08-09] MEDS: AMLODIPINE 2.5 MG TAB PO SCH ×2 (09:11→23:00)
[2018-08-09] MEDS: NYSTATIN 30 GM POWDER BTL TOP SCH ×2 (09:11→23:02)
[2018-08-09] MEDS: BALSAM PERU/CASTOR OIL 60 GM TUBE TOP SCH ×2 (09:12→23:02)
[2018-08-09] MEDS: PHENYTOIN 100 MG INJ IV SCH ×2 (09:25→22:58)
--- NOTE | 2018-08-09 16:13 | CONS ---
Assessment/Plan Assessment/Plan Hospital Course (Demo Recall) # sepsis, leukocytosis, SIRS, pulmonary, cardiac - recurrent leukocytosis due to bacteremia (below), improved - s/p septic shock due to pneumonia and C diff colitis - acute on chronic hypoxic respiratory failure, persistent - s/p reintubation 05/12/2018 - s/p re-do trach on 05/29/2018 - recurrent colonization of the anterior neck wound with ESBL+kleb, MRSA, GBS, corynebacteria on 05/06/2018 - h/o pneumonia vs. colonization of the airway by pseudomonas and ESBL+klebsiella - h/o possible, recurrent HCAP due to pseudomonas and ESBL+klebsiella - h/o recurrent HCAP due to MRSA and Enterobacter (culture of tracheal aspirate on 07/16/2017 that [address] [facility]) . Pt took vancomycin and ceftazidime - h/o decannulation prior to admission - h/o tracheostomy on 06/11/2017 - h/o SIRS from UGIB in 2018 - h/o thoracentesis on 07/18/2017, transudative (protein <2, LDH 279) - h/o bleeding from the trach site in 2018 - h/o septic shock due to pneumonia, ARDS, bacteremia, fungemia in 2018 - h/o ARDS in 2018 - h/o smoking - COPD - h/o ILD per medical record - h/o PAF, improved - echodense structure in posterior leafleat region, differential includes calcification vs vegetation per 2D echo 07/15/2018 # GI - s/p possible ileus or enterocolitis on CT abd/pel 06/15/2018-->follow up CT on 07/15/2018 showed no evidence of urolithiasis, obstructive uropathy or diverticulitis; it showed small to moderate ascites-->CT on 08/04/2018 showed colonic obstruction, mild to moderate ascites, diffuse gallbladder wall thickening - C diff colitis, diagnosed on 05/11/2018. Pt is on pGT vancomycin (05/11/2018-); Pt previously took IV metronidazole (05/11/2018-05/29/2018; restart 05/30/2018- 06/05/18) too - Pt had multiple negative C. diff tests at [facility] and at OSH in the past; none was positive until 05/11/2018 - dysphagia - h/o PEG placement 06/13/2018 - protein calorie malnutrition - h/o coffee ground emesis/UGIB on 12/23/2017 due to deep ulceration of distal esophagus and gastritis on EGD 12/26/2017. No e/o H. pylori - h/o possible appendicitis on CT on 11/22/2017, Pt took ertapenem (11/24/2017- 12/01/2017) - h/o extensive adhesions lower abdominal and pelvis between small bowel to each other and to colon and to abdominal wall, anterior pelvic wall chronic abscess secondary to probably an old perforated diverticulitis, torsion of small bowel around these dense adhesion causing multiple obstructive points - h/o laparoscopic exploration and extensive lysis of adhesions and drainage of anterior pelvic wall abscess 09/16/2017. Cultures were negative, no e/o malignancy. Pt took pip/tazo (09/16/2017-09/26/2017) - h/o EGD and exchange of PEG on 09/01/2017 - h/o partial obstruction mid jejunum in L anterior central pelvis with suggestion of a 3 cm soft tissue mass on CT 08/28/2017 - h/o internal stomal deep ulcer behind the internal bumper, gastritis and esophagitis, Rodriguez's cannot be ruled out, per EGD with biopsy 07/23/2017 - h/o GIB s/p flex sig showed polyp; stool OB negative on 06/29/17 - h/o stool OB positive status - h/o SBO and ileus due to pain meds - h/o mildly elevated CEA # renal/ - s/p recurrent UTI due to pseudomonas (culture on 07/09/2018)-->Garza catheter was replaced on 07/14/2018 - s/p UTI due to MDR, CRE-klebsiella on 06/15/2018. S/p renally dosed amikacin for klebsiella in her urine culture (06/17-06/22/2018) - s/p UTI due to pseudomonas and ESBL+klebsiella on 06/09/2018, Pt took one dose of fosfomycin on 06/10/2018 and cipro 06/12-06/15/2018 - anasarca - started on HD on 05/15/2018, via Juan in R groin - recurrent NATHAN on CKD - 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 Her strain of CRE was sensitive to colistin, Avycaz, and Vabomere but resistant to Zerbaxa (reported on 05/19/2018) - metabolic acidosis - adrenal insufficiency - h/o vaginal bleed in 2018 - h/o colonization of urinary tract by ESBL+klebsiella, VRE - h/o recurrent, symptomatic UTI due to carbapenem-resistant kleb (MDR strain) per urine culture 10/04/17, 10/09/17, 10/21/2017, P took colistin (10/09/2017- 10/15/2017), fosfomycin for carbapenemase-producing klebsiella and VRE on 10/25/2017 and 10/28/2017 - h/o funguria - h/o urinary retention # bloodstream infections - bacteremia d/t pseudomonas aeruginosa 07/09/18, 07/10/18, 07/11/18, 07/12/18, 07/13/18, 07/15/18, 07/17/18. This is associated with PICC because the blood culture from PICC and phlebotomy on 07/13/2018 both grew the same bacteria. The tip of PICC that was removed on 07/14/18 also grew the same bacteria in culture. - Some strains of pseudomonas she had were pansensitive while other strains of pseudomonas were resistant to many antibiotics (MDR). - Pt's strain of pseudomonas on 07/09/2018 was resistant to all except for aminoglycosides (amikacin, gentamicin, tobramycin), colistin (IRASEMA=1, reported to be susceptible) and ceftolozane/tazobactam, but resistant to ceftaz/avibactam - Pt's strain of pseudomonas on was resistant to all except for aminoglycosides (amikacin, gentamicin, tobramycin), colistin (IRASEMA=3, no interpretation) and ceftolozane/tazobactam, but resistant to ceftaz/avibactam 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; Pt declined surgery for MVR per outside medical records; TTE 07/01/17 did not mention any thrombus; s/p voriconazole (05/25/2017-08/01/2017) - h/o bacteremia due to MSSA and proteus s/p ceftriaxone; repeat blood cultures were negative on 06/14/2017 - s/p RUE PICC line placement 07/28/2018 # musculoskeletal and dermatological - dry skin - chronic wound of LLE - h/o infection of wound of LLE - h/o debridement of wound of LLE on 08/06/2017 - h/o recurrent herpes labialis, Pt took acyclovir, valacyclovir - h/o Osler's nodes (eschar) of R toes with erythematous skin; desquamation of the skin and open lacerations on R plantar foot. improved. Probable manifestati on of endocarditis. Pt declined MRI on 08/06/2017 - h/o infection of R toes due to pseudomonas. coagulase negative Staph likely a colonizer - h/o intertrigo of the groin, resolved with nystatin powder - h/o scabies (proven by skin scraping), locally crusted lesion over L scapula, s/p permethrin cream and pGT ivermectin on 08/11/2017, 08/12/2017, 08/19/2017. Repeat skin scraping on 08/21/2017 was negative for scabies # psych, neuro - chronic toxic metabolic encephalopathy, progressing - MRI brain on 07/26/2018 showed no acute intracranial pathology - seizure activity per EEG 07/27/18 - on Dilantin - decreased hearing b/l - h/o critical illness polyneuropathy - anxiety/depression, bipolar d/o, seen by Psychiatry in the past - chronic pain syndrome - h/o medical non-compliance: she would refuse her medications, treatment and straight catheterization in 2018 - complete opacification of the bilateral mastoid air cells per MRI Brain on 07/26/2018 # hematological, vascular - chronic anemia requiring blood transfusion intermittently - macrocytic anemia - aneurysmal dilatation of the distal aorta visualized on CT 06/15/2018 - PVD # other - hypothyroidism with elevated TSH - on Synthroid - Pt was evaluated by ENT on 08/04/2018; audiology exam not available/has not been performed. Amikacin IV (07/09/2018-08/04/2018) was stopped because of concern for her diminished hearing Recommendations: - continue renally dosed IV colistin (08/05/2018-); Pt's strain of pseudomonas in her blood culture on 07/17/2018 had IRASEMA of 3 for colistin, which is between sensitive (IRASEMA 2) and intermediate (IRASEMA 4) - continue renally dosed IV cefepime (07/14/2018-); we recommend double coverage because amikacin alone did not clear her bacteremia initially - We recommend 6 weeks of antibiotics for probable endocarditis from the first day of negative blood culture, i.e. 07/18/2018 through 08/29/2018 - if Pt has break-through bacteremia, will request its sensitivity to colistin again - We recommend repeat transthoracic echo at the end of her antibiotic course - continue vancomycin pGT (07/09/18-) while on IV antibiotics given h/o C. diff. Pt completed IV metronidazole (07/09/18-07/15/18) Management d/w RN Alejandra, and with Dr. Doyle Consultation Date/Type/Reason Admit Date/Time May 06, 2018 at 17:38 Initial Consult Date 05/07/18 Type of Consult Infectious Disease Requesting Provider: ROLAND GIRON MD Date/Time of Note DATE: 08/09/18 TIME: 16:05 24 HR Interval Summary Free Text/Dictation No acute issues per d/w nursing. Remains afebrile, tolerating GT feeds, and no diarrhea. Unable to perform ROS as pt is obtunded. Subjective hx not possible: pt non-verbal Exam/Review of Systems Exam Vitals Vital Signs Date Temp Pulse Resp B/P (MAP) Pulse Ox O2 O2 Flow FiO2 Time Delivery Rate 08/09/18 98.2 76 21 108/64 99 15:47 (79) 08/09/18 30 15:43 08/07/18 Mechanical 20:00 Ventilator Trach Collar Intake and Output 08/08/18 08/08/18 08/09/18 1515:00 23:00 07:00 IntakeIntake Total 1150 ml OutputOutput Total 1900 ml 500 ml BalanceBalance -750 ml -500 ml Exam Constitutional: well developed, non-verbal, frail, obese, other (chronically debilitated) Psych: other (unable to assess d/t lethargy) Head: normocephalic, atraumatic Eyes: nl conjunctiva, nl lids, nl sclera ENMT: nl external ears & nose, nl nasal mucosa & septum, other (Dry mucus membranes; no obvious thrush noted) Neck: non-tender, other (trach is midline and connected to ventilator support) Respiratory: diminished breath sounds, crackles/rales No wheezing Cardiovascular: regular rate and rhythm, edema (generalized) Gastrointestinal: soft, non-tender, other (G-tube c/d/i) Genitourinary - Female: other (Garza in place) Musculoskeletal: muscle weakness Extremities: normal pulses, edema, other (bilateral foot drop; RUE PICC c/d/i) Neurological: lethargic, other (eyes closed) Skin: other (L [place] and bilateral heels with foam dressing c/d/i) Results Result Diagram: 08/09/18 1202 08/09/18 1202 Results 24hrs Laboratory Tests Test 08/09/18 12:02 White Blood Count 6.1 Red Blood Count 2.40 L Hemoglobin 8.5 L Hematocrit 27.6 L Mean Corpuscular Volume 115.0 H Mean Corpuscular Hemoglobin 35.4 H Mean Corpuscular Hemoglobin Concent 30.8 L Red Cell Distribution Width 25.6 H Platelet Count 179 Mean Platelet Volume 10.4 Immature Granulocytes % 0.700 H Neutrophils % 72.4 Lymphocytes % 12.3 L Monocytes % 10.1 Eosinophils % 4.3 Basophils % 0.2 Nucleated Red Blood Cells % 0.0 Immature Granulocytes # 0.040 H Neutrophils # 4.4 Lymphocytes # 0.8 Monocytes # 0.6 Eosinophils # 0.3 Basophils # 0.0 Nucleated Red Blood Cells # 0.0 Sodium Level 139 Potassium Level 3.2 L Chloride Level 108 Carbon Dioxide Level 18 L Anion Gap 13 Blood Urea Nitrogen 90 H Creatinine 2.36 H Est Glomerular Filtrat Rate mL/min Glucose Level 122 Calcium Level 9.2 Total Bilirubin 0.0 L Direct Bilirubin 0.00 Indirect Bilirubin 0.0 Aspartate Amino Transf (AST/SGOT) 20 Alanine Aminotransferase (ALT/SGPT) 26 Alkaline Phosphatase 401 H Total Protein 6.3 Albumin 2.6 L Globulin 3.70 H Albumin/Globulin Ratio 0.70 Medications Medication Current Medications Clonidine (Catapres) 0.1 mg Q6H PRN PO ELEVATED BLOOD PRESSURE Last administered on 08/03/18at 20:27; Admin Dose 0.1 MG; Start 06/03/18 at 03:30 Bumetanide (Bumex) 1 mg BID DIURETICS GTB Last administered on 08/09/18 06:1 0; Admin Dose 1 MG; Start 06/11/18 at 18:00 Dicyclomine HCl (Bentyl) 20 mg Q8 PO Last administered on 08/09/18 12:34; Admin Dose 20 MG; Start 06/27/18 at 22:00 Cholestyramine Resin (Questran Light) 4 gm 0600,1200,1800,2300 GTB Last administered on 08/09/18 12:33; Admin Dose 4 GM; Start 06/27/18 at 18:00 Vancomycin HCl (Vancomycin Oral Syringe) 125 mg Q6 GTB Last administered on 08/09/18 12:33; Admin Dose 125 MG; Start 07/09/18 at 18:00 Epoetin Zen-epbx (Retacrit (Non-Esrd)) 10,000 unit MoWeFr@1700 SC Last administered on 08/07/18 17:34; Admin Dose 10,000 UNIT; Start 07/13/18 at 17:00 Cefepime HCl 50 ml @ 100 mls/hr Q24H IVPB Last administered on 08/08/18 18:51; Admin Dose 100 MLS/HR; Start 07/14/18 at 18:30 Albuterol/ Ipratropium (Duoneb) 3 ml Q2H RESP THERAPY PRN HHN WHEEZING Last administered on 07/21/18 23:06; Admin Dose 3 ML; Start 07/21/18 at 22:00 Citric Acid/ Sodium Citrate (Bicitra) 60 ml DAILY PO Last administered on 08/09/18 09:10; Admin Dose 60 ML; Start 07/23/18 at 09:00 Levothyroxine Sodium (Synthroid) 75 mcg DAILY@06 GTB Last administered on 08/09/18 06:10; Admin Dose 75 MCG; Start 07/28/18 at 06:00 Nystatin (Nystatin Powder) 1 applic BID TOP Last administered on 08/09/18 09:11; Admin Dose 1 APPLIC; Start 07/28/18 at 17:30 IV Flush (NS 10 ml) 10 ml Q8 PRN IV IV PROTOCOL; Start 07/28/18 at 19:00 Amlodipine Besylate (Norvasc) 2.5 mg BID PO Last administered on 08/09/18 09:11; Admin Dose 2.5 MG; Start 07/30/18 at 21:00 Lorazepam (Ativan) 0.5 mg Q4 PRN IV agitation; Start 08/02/18 at 15:00 Metoprolol Tartrate (Lopressor) 75 mg Q8 GTB Last administered on 08/09/18at 12:34; Admin Dose 75 MG; Start 08/04/18 at 22:00 Phenytoin (Dilantin) 250 mg Q12@0800,2000 IV Last administered on 08/09/18 09:25; Admin Dose 250 MG; Start 08/05/18 at 09:00 Colistimethate Sodium 90 mg/ Sodium Chloride 100 ml @ 200 mls/hr Q36H IVPB Last administered on 08/08/18at 12:55; Admin Dose 200 MLS/HR; Start 08/05/18 at 13:30; Stop 08/29/18 at 23:45 Amiodarone HCl (Cordarone) 200 mg DAILY GTB Last administered on 08/09/18at 09:11; Admin Dose 200 MG; Start 08/07/18 at 09:00 Miscellaneous Information (*Order Clarification Bulletin) MEDICATION REQUIRES CLARIFICATI... Q8H XX ; Start 08/08/18 at 18:30 LAURA JOSHI NP Aug 09, 2018 16:13
[2018-08-09] MEDS: CEFEPIME 2GM/50 ML (PMX) 50 ML IVPB SCH (18:42)
[2018-08-10] VITALS (24 sets, daily range): BP systolic 94–116; BP diastolic 49–60; PULSE 48–79; RESP 18–27
[2018-08-10] MEDS: SOD CHLORIDE 0.9% IVPB SCH (01:30)
[2018-08-10] MEDS: COLISTIMETHATE IVPB SCH (01:30)
[2018-08-10] MEDS: [UNRECOGNIZED DRUG - REMARK] XX SCH ×3 (01:31→18:30)
[2018-08-10] MEDS: CHOLESTYRAMINE (LIGHT) 4 GM PACKET GTB SCH ×4 (05:20→22:40)
[2018-08-10] MEDS: METOPROLOL 50 MG TAB GTB SCH ×3 (05:21→22:00)
[2018-08-10] MEDS: VANCOMYCIN HCL 250 MG/5ML POSYG GTB SCH ×2 (05:21→14:27)
[2018-08-10] MEDS: LEVOTHYROXINE 75 MCG TAB GTB SCH (05:21)
[2018-08-10] MEDS: DICYCLOMINE 10 MG CAP PO SCH ×3 (05:22→22:40)
[2018-08-10] MEDS: BUMETANIDE 1 MG TAB GTB SCH ×2 (05:22→20:05)
[2018-08-10] MEDS: PHENYTOIN 100 MG INJ IV SCH ×2 (08:00→21:58)
[2018-08-10] MEDS ORDERED: POTASSIUM CHLORIDE 20 MEQ POWDER FOR ORAL SOLN NGT ONE (08:30)
[2018-08-10] MEDS ORDERED: MAGNESIUM SULFATE 2 GM/50 ML 50 ML IVPB ONE (08:30)
--- NOTE | 2018-08-10 08:37 | PN ---
DATE: 08/10/2018 SUBJECTIVE: The patient remains confused. No other events noted. No hemoptysis, hematemesis or hem atochezia. OBJECTIVE: VITAL SIGNS: Blood pressure is 104/54, pulse 69, respiration 18, temperature 98.9. HEENT: Head is normocephalic. NECK: Supple. HEART: Regular rate. LUNGS: Show diminished breath sounds at the base. ABDOMEN: Soft, nontender to palpation without rebound or guarding. EXTREMITIES: Negative for clubbing, cyanosis. Positive edema. DERMATOLOGIC: No rashes. MUSCULOSKELETAL: No joint effusion. NEUROLOGIC: No change in exam. MEDICATIONS: The patient's medications have been reviewed. LABORATORY DATA: Has been reviewed. IMAGING STUDIES: Have been reviewed. ASSESSMENT AND PLAN: 1. Nonoliguric acute kidney injury with baseline creatinine 2.0 mg/dL. Etiology of acute kidney inj ury is secondary to acute tubular necrosis. The patient is status post hemodialysis. Renal function has stabilized. Continue current treatment plans, supportive care, renally dose all medications. T he patient is currently on colistin, which is nephrotoxic. Will continue to monitor closely. Renal function has been stable. 2. Volume overload. Etiology is multifactorial. Continue current diuretic regimen. Will add metol azone intermittently to augment diuresis. 3. Hypokalemia. Continue to monitor and replete. 4. Hypomagnesemia. Continue to monitor and replete. 5. Anemia. Monitor hemoglobin and hematocrit levels. Continue Epogen. 6. Mineral bone disorder. Monitor calcium and phosphorus levels. 7. Ventilator-dependent respiratory failure. Vent settings and ABG has been reviewed. Continue to monitor. 8. Sepsis secondary to endocarditis. Patient has completed antibiotic course. 9. Dysphagia. Continue tube feeding. 10. Encephalopathy. Continue to monitor. 11. History of Clostridium difficile. 12. Lower extremity wounds. Dictated By: JEANA BANSAL DO NR/NTS Conf#: [id number] DID#: [id number] CC: QUINTEN UMAÑA MD; ROLAND GIRON MD;*EndCC*
[2018-08-10] MEDS: AMLODIPINE 2.5 MG TAB PO SCH ×2 (09:00→21:00)
[2018-08-10] MEDS: CITRIC ACID/NA CITRATE 30 ML CUP PO SCH (09:43)
[2018-08-10] MEDS: AMIODARONE 200 MG TAB GTB SCH (09:45)
[2018-08-10] MEDS: BALSAM PERU/CASTOR OIL 60 GM TUBE TOP SCH ×2 (09:48→22:00)
[2018-08-10] MEDS: NYSTATIN 30 GM POWDER BTL TOP SCH ×2 (09:48→22:00)
--- NOTE | 2018-08-10 17:05 | PN ---
Date/Time of Note Date/Time of Note DATE: 08/10/18 TIME: 17:01 Assessment/Plan VTE Prophylaxis Risk score (from Ns)>0 risk: 6 SCD applied (from [facility] [place]): Yes Pharmacological prophylaxis: NA/contraindicated Pharm contraindication: anticoag not tolerated Lines/Catheters IV Catheter Type (from [facility]): PICC Line Central line still needed: Yes Urinary Cath still in place: Yes Reason Cath still needed: urinary retention Assessment/Plan Hospital Course Patient continues on ventilatory support, stable vital signs, distended abdomen with hypoactive bowel sounds however no residual from G-tube per RN, will obtain KUB. Assessment/Plan -Possible acute metabolic encephalopathy. Dr. Mathew is following in neurology consultation. -Seizures, continue Dilantin -Persistent leukocytosis with Pseudomonas bacteremia 2 to PICC line infection, continue antibiotics per ID. Dr. Doyle is following in infection disease consultation. 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 TTE 07/16/18 with notion of echodense structure on the mitral valve, calcification vs vegetation. Dr. Scanlon is following in cardiology consultation. Patient needs IV cefepime and amikacin for treatment presumed endocarditis until 08/29/2018 per ID recommendations. -Hypothyroidism, continue levothyroxine. -MDR Klebsiella urinary tract infection, completed treatment with amikacin. -Atrial fibrillation was rapid ventricular response, patient remains in sinus rhythm continue metoprolol and amiodarone. -S/p septic shock secondary to urinary tract infection, anterior neck soft tissue infection, and C. difficile colitis. -C-diff colitis,resolved. -Acute respiratory failure requiring intubation and ventilatory support. Dr. Lambert is following in pulmonology consultation. -S/p tracheostomy on 05/29/18. -Acute kidney injury on chronic kidney disease. Started on HD this admission with recovery of renal function. Dr. Mckeon is following in nephrology consultation. -Anemia of chronic inflammation, stool for OB is negative, status post blood transfusion. Continue Epogen. -Metabolic acidosis, resolved. -Acute diastolic congestive heart failure. -Paroxysmal atrial fibrillation -COPD -Dysphagia with PEG. -G-tube mild malfunction, changed by GI Dr. Carolina is following in gastroenterology consultation. -Obesity -Critical care myopathy Further recommendations based on clinical course. Plan of care discussed with Dr. Eisenberg. Result Diagram: 08/10/18 0549 08/10/18 0549 Results 24hrs Laboratory Tests Test 08/10/18 05:49 White Blood Count 5.7 Red Blood Count 2.48 L Hemoglobin 8.6 L Hematocrit 28.5 L Mean Corpuscular Volume 114.9 H Mean Corpuscular Hemoglobin 34.7 H Mean Corpuscular Hemoglobin Concent 30.2 L Red Cell Distribution Width 25.1 H Platelet Count 172 Mean Platelet Volume 10.5 H Immature Granulocytes % 0.700 H Neutrophils % 72.2 Lymphocytes % 12.7 L Monocytes % 9.2 Eosinophils % 4.8 Basophils % 0.4 Nucleated Red Blood Cells % 0.4 H Immature Granulocytes # 0.040 H Neutrophils # 4.1 Lymphocytes # 0.7 L Monocytes # 0.5 Eosinophils # 0.3 Basophils # 0.0 Nucleated Red Blood Cells # 0.0 Sodium Level 140 Potassium Level 3.4 L Chloride Level 108 Carbon Dioxide Level 17 L Anion Gap 15 H Blood Urea Nitrogen 90 H Creatinine 2.38 H Est Glomerular Filtrat Rate mL/min Glucose Level 101 Calcium Level 9.3 Phosphorus Level 3.1 Magnesium Level 1.6 L Total Bilirubin 0.2 Direct Bilirubin 0.00 Indirect Bilirubin 0.2 Aspartate Amino Transf (AST/SGOT) 13 L Alanine Aminotransferase (ALT/SGPT) 22 Alkaline Phosphatase 337 H Total Protein 5.6 L Albumin 2.4 L Globulin 3.20 Albumin/Globulin Ratio 0.75 Exam/Review of Systems Exam Vitals Vital Signs Date Temp Pulse Resp B/P (MAP) Pulse Ox O2 O2 Flow FiO2 Time Delivery Rate 08/10/18 97.5 52 18 100/50 100 Mechanical 15:48 (67) Ventilator 08/10/18 30 05:10 Intake and Output 08/09/18 08/09/18 08/10/18 1515:00 23:00 07:00 IntakeIntake Total 680 ml 850 ml 830 ml OutputOutput Total 500 ml 1250 ml 350 ml BalanceBalance 180 ml -400 ml 480 ml Exam Constitutional: lethargic Neck: other (Tracheostomy) Respiratory: diminished breath sounds Cardiovascular: regular rate and rhythm Gastrointestinal: soft, non-tender, distended, other (G-tube) Extremities: normal pulses Results Results 24hrs Laboratory Tests Test 08/10/18 05:49 White Blood Count 5.7 Red Blood Count 2.48 L Hemoglobin 8.6 L Hematocrit 28.5 L Mean Corpuscular Volume 114.9 H Mean Corpuscular Hemoglobin 34.7 H Mean Corpuscular Hemoglobin Concent 30.2 L Red Cell Distribution Width 25.1 H Platelet Count 172 Mean Platelet Volume 10.5 H Immature Granulocytes % 0.700 H Neutrophils % 72.2 Lymphocytes % 12.7 L Monocytes % 9.2 Eosinophils % 4.8 Basophils % 0.4 Nucleated Red Blood Cells % 0.4 H Immature Granulocytes # 0.040 H Neutrophils # 4.1 Lymphocytes # 0.7 L Monocytes # 0.5 Eosinophils # 0.3 Basophils # 0.0 Nucleated Red Blood Cells # 0.0 Sodium Level 140 Potassium Level 3.4 L Chloride Level 108 Carbon Dioxide Level 17 L Anion Gap 15 H Blood Urea Nitrogen 90 H Creatinine 2.38 H Est Glomerular Filtrat Rate mL/min Glucose Level 101 Calcium Level 9.3 Phosphorus Level 3.1 Magnesium Level 1.6 L Total Bilirubin 0.2 Direct Bilirubin 0.00 Indirect Bilirubin 0.2 Aspartate Amino Transf (AST/SGOT) 13 L Alanine Aminotransferase (ALT/SGPT) 22 Alkaline Phosphatase 337 H Total Protein 5.6 L Albumin 2.4 L Globulin 3.20 Albumin/Globulin Ratio 0.75 Medications Medication Current Medications Clonidine (Catapres) 0.1 mg Q6H PRN PO ELEVATED BLOOD PRESSURE Last administered on 08/03/18 20:27; Admin Dose 0.1 MG; Start 06/03/18 at 03:30 Bumetanide (Bumex) 1 mg BID DIURETICS GTB Last administered on 08/10/18 05:22; Admin Dose 1 MG; Start 06/11/18 at 18:00 Dicyclomine HCl (Bentyl) 20 mg Q8 PO Last administered on 08/10/18 14:28; Admin Dose 20 MG; Start 06/27/18 at 22:00 Cholestyramine Resin (Questran Light) 4 gm 0600,1200,1800,2300 GTB Last administered on 08/10/18 14:27; Admin Dose 4 GM; Start 06/27/18 at 18:00 Vancomycin HCl (Vancomycin Oral Syringe) 125 mg Q6 GTB Last administered on 08/10/18 14:27; Admin Dose 125 MG; Start 07/09/18 at 18:00 Epoetin Zen-epbx (Retacrit (Non-Esrd)) 10,000 unit MoWeFr@1700 SC Last administered on 08/07/18 17:34; Admin Dose 10,000 UNIT; Start 07/13/18 at 17:00 Cefepime HCl 50 ml @ 100 mls/hr Q24H IVPB Last administered on 08/09/18 18:42; Admin Dose 100 MLS/HR; Start 07/14/18 at 18:30 Albuterol/ Ipratropium (Duoneb) 3 ml Q2H RESP THERAPY PRN HHN WHEEZING Last administered on 07/21/18 23:06; Admin Dose 3 ML; Start 07/21/18 at 22:00 Citric Acid/ Sodium Citrate (Bicitra) 60 ml DAILY PO Last administered on 08/10/18 09:43; Admin Dose 60 ML; Start 07/23/18 at 09:00 Levothyroxine Sodium (Synthroid) 75 mcg DAILY@06 GTB Last administered on 08/10/18 05:21; Admin Dose 75 MCG; Start 07/28/18 at 06:00 Nystatin (Nystatin Powder) 1 applic BID TOP Last administered on 08/10/18 09:48; Admin Dose 1 APPLIC; Start 07/28/18 at 17:30 IV Flush (NS 10 ml) 10 ml Q8 PRN IV IV PROTOCOL; Start 07/28/18 at 19:00 Amlodipine Besylate (Norvasc) 2.5 mg BID PO Last administered on 08/09/18 23: 00; Admin Dose 2.5 MG; Start 07/30/18 at 21:00 Lorazepam (Ativan) 0.5 mg Q4 PRN IV agitation; Start 08/02/18 at 15:00 Metoprolol Tartrate (Lopressor) 75 mg Q8 GTB Last administered on 08/10/18 05:21; Admin Dose 75 MG; Start 08/04/18 at 22:00 Phenytoin (Dilantin) 250 mg Q12@0800,2000 IV Last administered on 08/10/18 08:00; Admin Dose 250 MG; Start 08/05/18 at 09:00 Colistimethate Sodium 90 mg/ Sodium Chloride 100 ml @ 200 mls/hr Q36H IVPB Last administered on 08/10/18 01:30; Admin Dose 200 MLS/HR; Start 08/05/18 at 13:30; Stop 08/29/18 at 23:45 Amiodarone HCl (Cordarone) 200 mg DAILY GTB Last administered on 08/10/18at 09:45; Admin Dose 200 MG; Start 08/07/18 at 09:00 Miscellaneous Information (*Order Clarification Bulletin) MEDICATION REQUIRES CLARIFICATI... Q8H XX Last administered on 08/10/18at 10:13; Admin Dose 1 EA; Start 08/08/18 at 18:30 GRISELDA DENNIS Aug 10, 2018 17:05
--- NOTE | 2018-08-10 17:35 | CONS ---
Assessment/Plan Assessment/Plan Hospital Course (Demo Recall) # sepsis, leukocytosis, SIRS, pulmonary, cardiac - recurrent leukocytosis due to bacteremia (below), improved - s/p septic shock due to pneumonia and C diff colitis - acute on chronic hypoxic respiratory failure, persistent - s/p reintubation 05/12/2018 - s/p re-do trach on 05/29/2018 - recurrent colonization of the anterior neck wound with ESBL+kleb, MRSA, GBS, corynebacteria on 05/06/2018 - h/o pneumonia vs. colonization of the airway by pseudomonas and ESBL+klebsiella - h/o possible, recurrent HCAP due to pseudomonas and ESBL+klebsiella - h/o recurrent HCAP due to MRSA and Enterobacter (culture of tracheal aspirate on 07/16/2017 that was collected at [facility]) . Pt took vancomycin and ceftazidime - h/o decannulation prior to admission - h/o tracheostomy on 06/11/2017 - h/o SIRS from UGIB in 2018 - h/o thoracentesis on 07/18/2017, transudative (protein <2, LDH 279) - h/o bleeding from the trach site in 2018 - h/o septic shock due to pneumonia, ARDS, bacteremia, fungemia in 2018 - h/o ARDS in 2018 - h/o smoking - COPD - h/o ILD per medical record - h/o PAF, improved - echodense structure in posterior leafleat region, differential includes calcification vs vegetation per 2D echo 07/15/2018 # GI - s/p possible ileus or enterocolitis on CT abd/pel 06/15/2018-->follow up CT on 07/15/2018 showed no evidence of urolithiasis, obstructive uropathy or diverticulitis; it showed small to moderate ascites-->CT on 08/04/2018 showed colonic obstruction, mild to moderate ascites, diffuse gallbladder wall thickening - C diff colitis, diagnosed on 05/11/2018. Pt is on pGT vancomycin (05/11/2018-); Pt previously took IV metronidazole (05/11/2018-05/29/2018; restart 05/30/2018- 06/05/18) too - Pt had multiple negative C. diff tests at [facility] and at OSH in the past; none was positive until 05/11/2018 - dysphagia - h/o PEG placement 06/13/2018 - protein calorie malnutrition - h/o coffee ground emesis/UGIB on 12/23/2017 due to deep ulceration of distal esophagus and gastritis on EGD 12/26/2017. No e/o H. pylori - h/o possible appendicitis on CT on 11/22/2017, Pt took ertapenem (11/24/2017- 12/01/2017) - h/o extensive adhesions lower abdominal and pelvis between small bowel to each other and to colon and to abdominal wall, anterior pelvic wall chronic abscess secondary to probably an old perforated diverticulitis, torsion of small bowel around these dense adhesion causing multiple obstructive points - h/o laparoscopic exploration and extensive lysis of adhesions and drainage of anterior pelvic wall abscess 09/16/2017. Cultures were negative, no e/o malignancy. Pt took pip/tazo (09/16/2017-09/26/2017) - h/o EGD and exchange of PEG on 09/01/2017 - h/o partial obstruction mid jejunum in L anterior central pelvis with suggestion of a 3 cm soft tissue mass on CT 08/28/2017 - h/o internal stomal deep ulcer behind the internal bumper, gastritis and esophagitis, Rodriguez's cannot be ruled out, per EGD with biopsy 07/23/2017 - h/o GIB s/p flex sig showed polyp; stool OB negative on 06/29/17 - h/o stool OB positive status - h/o SBO and ileus due to pain meds - h/o mildly elevated CEA # renal/ - s/p recurrent UTI due to pseudomonas (culture on 07/09/2018)-->Garza catheter was replaced on 07/14/2018 - s/p UTI due to MDR, CRE-klebsiella on 06/15/2018. S/p renally dosed amikacin for klebsiella in her urine culture (06/17-06/22/2018) - s/p UTI due to pseudomonas and ESBL+klebsiella on 06/09/2018, Pt took one dose of fosfomycin on 06/10/2018 and cipro 06/12-06/15/2018 - anasarca - started on HD on 05/15/2018, via Juan in R groin - recurrent NATHAN on CKD - 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 Her strain of CRE was sensitive to colistin, Avycaz, and Vabomere but resistant to Zerbaxa (reported on 05/19/2018) - metabolic acidosis - adrenal insufficiency - h/o vaginal bleed in 2018 - h/o colonization of urinary tract by ESBL+klebsiella, VRE - h/o recurrent, symptomatic UTI due to carbapenem-resistant kleb (MDR strain) per urine culture 10/04/17, 10/09/17, 10/21/2017, P took colistin (10/09/2017- 10/15/2017), fosfomycin for carbapenemase-producing klebsiella and VRE on 10/25/2017 and 10/28/2017 - h/o funguria - h/o urinary retention # bloodstream infections - bacteremia d/t pseudomonas aeruginosa 07/09/18, 07/10/18, 07/11/18, 07/12/18, 07/13/18, 07/15/18, 07/17/18. This is associated with PICC because the blood culture from PICC and phlebotomy on 07/13/2018 both grew the same bacteria. The tip of PICC that was removed on 07/14/18 also grew the same bacteria in culture. - Some strains of pseudomonas she had were pansensitive while other strains of pseudomonas were resistant to many antibiotics (MDR). - Pt's strain of pseudomonas on 07/09/2018 was resistant to all except for aminoglycosides (amikacin, gentamicin, tobramycin), colistin (IRASEMA=1, reported to be susceptible) and ceftolozane/tazobactam, but resistant to ceftaz/avibactam - Pt's strain of pseudomonas on was resistant to all except for aminoglycosides (amikacin, gentamicin, tobramycin), colistin (IRASEMA=3, no interpretation) and ceftolozane/tazobactam, but resistant to ceftaz/avibactam 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; Pt declined surgery for MVR per outside medical records; TTE 07/01/17 did not mention any thrombus; s/p voriconazole (05/25/2017-08/01/2017) - h/o bacteremia due to MSSA and proteus s/p ceftriaxone; repeat blood cultures were negative on 06/14/2017 - s/p RUE PICC line placement 07/28/2018 # musculoskeletal and dermatological - dry skin - chronic wound of LLE - h/o infection of wound of LLE - h/o debridement of wound of LLE on 08/06/2017 - h/o recurrent herpes labialis, Pt took acyclovir, valacyclovir - h/o Osler's nodes (eschar) of R toes with erythematous skin; desquamation of the skin and open lacerations on R plantar foot. improved. Probable manifestati on of endocarditis. Pt declined MRI on 08/06/2017 - h/o infection of R toes due to pseudomonas. coagulase negative Staph likely a colonizer - h/o intertrigo of the groin, resolved with nystatin powder - h/o scabies (proven by skin scraping), locally crusted lesion over L scapula, s/p permethrin cream and pGT ivermectin on 08/11/2017, 08/12/2017, 08/19/2017. Repeat skin scraping on 08/21/2017 was negative for scabies # psych, neuro - chronic toxic metabolic encephalopathy, progressing - MRI brain on 07/26/2018 showed no acute intracranial pathology - seizure activity per EEG 07/27/18 - on Dilantin - decreased hearing b/l - h/o critical illness polyneuropathy - anxiety/depression, bipolar d/o, seen by Psychiatry in the past - chronic pain syndrome - h/o medical non-compliance: she would refuse her medications, treatment and straight catheterization in 2018 - complete opacification of the bilateral mastoid air cells per MRI Brain on 07/26/2018 # hematological, vascular - chronic anemia requiring blood transfusion intermittently - macrocytic anemia - aneurysmal dilatation of the distal aorta visualized on CT 06/15/2018 - PVD # other - hypothyroidism with elevated TSH - on Synthroid recommendations: - continue renally dosed IV colistin (08/05/2018-); Pt's strain of pseudomonas in her blood culture on 07/17/2018 had IRASEMA of 3 for colistin, which is between sensitive (IRASEMA 2) and intermediate (IRASEMA 4) - Continue renally dosed IV cefepime (07/14/2018-); I recommend double coverage because amikacin alone did not clear her bacteremia initially - we recommend 6 weeks of antibiotics for probable endocarditis from the first day of negative blood culture, i.e. 07/18/2018 through 08/29/2018 - if Pt has break-through bacteremia, will request its sensitivity to colistin again - I also recommend repeat transthoracic echo at the end of her antibiotic course - Note: Pt finished taking amikacin IV (07/09/2018-08/05/2018) because of concern for her diminished hearing. Pt was evaluated by ENT on 08/04/2018; audiology exam not available/has not been performed. - continue vancomycin pGT (07/09/18-) while on IV antibiotics given h/o C. diff. Pt completed IV metronidazole (07/09/18-07/15/18) management d/w Pt's RN Ritesh. I called and left a message at Dr. Black's office on 07/07/2018 but have not received a return Consultation Date/Type/Reason Admit Date/Time May 06, 2018 at 17:38 Initial Consult Date 05/10/18 Type of Consult ID Requesting Provider: ROLAND GIRON MD Date/Time of Note DATE: 08/10/18 TIME: 17:31 24 HR Interval Summary Subjective hx not possible: pt non-verbal, pt critical, pt critical status Exam/Review of Systems Exam Vitals Vital Signs Date Temp Pulse Resp B/P (MAP) Pulse Ox O2 O2 Flow FiO2 Time Delivery Rate 08/10/18 97.5 52 18 100/50 100 Mechanical 15:48 (67) Ventilator 08/10/18 30 05:10 Intake and Output 08/09/18 08/09/18 08/10/18 1515:00 23:00 07:00 IntakeIntake Total 680 ml 850 ml 830 ml OutputOutput Total 500 ml 1250 ml 350 ml BalanceBalance 180 ml -400 ml 480 ml Constitutional: non-verbal, frail, obese Psych: confusion Head: normocephalic, atraumatic Eyes: nl conjunctiva, nl lids, nl sclera ENMT: nl external ears & nose, other (dry mucus membranes) Neck: other (trach) Respiratory: crackles/rales Cardiovascular: regular rate and rhythm, nl pulses Gastrointestinal: soft, non-tender, surgical scars; No distended, No tender Genitourinary - Female: other (FC) Musculoskeletal: No swelling Extremities: edema Neurological: lethargic Skin: No rash or lesions Results Result Diagram: 08/10/18 0549 08/10/18 0549 Results 24hrs Laboratory Tests Test 08/10/18 05:49 White Blood Count 5.7 Red Blood Count 2.48 L Hemoglobin 8.6 L Hematocrit 28.5 L Mean Corpuscular Volume 114.9 H Mean Corpuscular Hemoglobin 34.7 H Mean Corpuscular Hemoglobin Concent 30.2 L Red Cell Distribution Width 25.1 H Platelet Count 172 Mean Platelet Volume 10.5 H Immature Granulocytes % 0.700 H Neutrophils % 72.2 Lymphocytes % 12.7 L Monocytes % 9.2 Eosinophils % 4.8 Basophils % 0.4 Nucleated Red Blood Cells % 0.4 H Immature Granulocytes # 0.040 H Neutrophils # 4.1 Lymphocytes # 0.7 L Monocytes # 0.5 Eosinophils # 0.3 Basophils # 0.0 Nucleated Red Blood Cells # 0.0 Sodium Level 140 Potassium Level 3.4 L Chloride Level 108 Carbon Dioxide Level 17 L Anion Gap 15 H Blood Urea Nitrogen 90 H Creatinine 2.38 H Est Glomerular Filtrat Rate mL/min Glucose Level 101 Calcium Level 9.3 Phosphorus Level 3.1 Magnesium Level 1.6 L Total Bilirubin 0.2 Direct Bilirubin 0.00 Indirect Bilirubin 0.2 Aspartate Amino Transf (AST/SGOT) 13 L Alanine Aminotransferase (ALT/SGPT) 22 Alkaline Phosphatase 337 H Total Protein 5.6 L Albumin 2.4 L Globulin 3.20 Albumin/Globulin Ratio 0.75 Medications Medication Current Medications Clonidine (Catapres) 0.1 mg Q6H PRN PO ELEVATED BLOOD PRESSURE Last administered on 08/03/18at 20:27; Admin Dose 0.1 MG; Start 06/03/18 at 03:30 Bumetanide (Bumex) 1 mg BID DIURETICS GTB Last administered on 08/10/18at 05:22; Admin Dose 1 MG; Start 06/11/18 at 18:00 Dicyclomine HCl (Bentyl) 20 mg Q8 PO Last administered on 08/10/18at 14:28; Admin Dose 20 MG; Start 06/27/18 at 22:00 Cholestyramine Resin (Questran Light) 4 gm 0600,1200,1800,2300 GTB Last administered on 08/10/18 14:27; Admin Dose 4 GM; Start 06/27/18 at 18:00 Vancomycin HCl (Vancomycin Oral Syringe) 125 mg Q6 GTB Last administered on 08/10/18 14:27; Admin Dose 125 MG; Start 07/09/18 at 18:00 Epoetin Zen-epbx (Retacrit (Non-Esrd)) 10,000 unit MoWeFr@1700 SC Last administered on 08/07/18 17:34; Admin Dose 10,000 UNIT; Start 07/13/18 at 17:00 Cefepime HCl 50 ml @ 100 mls/hr Q24H IVPB Last administered on 08/09/18 18:42; Admin Dose 100 MLS/HR; Start 07/14/18 at 18:30 Albuterol/ Ipratropium (Duoneb) 3 ml Q2H RESP THERAPY PRN HHN WHEEZING Last administered on 07/21/18 23:06; Admin Dose 3 ML; Start 07/21/18 at 22:00 Citric Acid/ Sodium Citrate (Bicitra) 60 ml DAILY PO Last administered on 08/10/18 09:43; Admin Dose 60 ML; Start 07/23/18 at 09:00 Levothyroxine Sodium (Synthroid) 75 mcg DAILY@06 GTB Last administered on 08/10/18 05:21; Admin Dose 75 MCG; Start 07/28/18 at 06:00 Nystatin (Nystatin Powder) 1 applic BID TOP Last administered on 08/10/18 09:48; Admin Dose 1 APPLIC; Start 07/28/18 at 17:30 IV Flush (NS 10 ml) 10 ml Q8 PRN IV IV PROTOCOL; Start 07/28/18 at 19:00 Amlodipine Besylate (Norvasc) 2.5 mg BID PO Last administered on 08/09/18 23:00; Admin Dose 2.5 MG; Start 07/30/18 at 21:00 Lorazepam (Ativan) 0.5 mg Q4 PRN IV agitation; Start 08/02/18 at 15:00 Metoprolol Tartrate (Lopressor) 75 mg Q8 GTB Last administered on 08/10/18 05:21; Admin Dose 75 MG; Start 08/04/18 at 22:00 Phenytoin (Dilantin) 250 mg Q12@0800,2000 IV Last administered on 08/10/18at 08:00; Admin Dose 250 MG; Start 08/05/18 at 09:00 Colistimethate Sodium 90 mg/ Sodium Chloride 100 ml @ 200 mls/hr Q36H IVPB Last administered on 08/10/18 01:30; Admin Dose 200 MLS/HR; Start 08/05/18 at 13:30; Stop 08/29/18 at 23:45 Amiodarone HCl (Cordarone) 200 mg DAILY GTB Last administered on 08/10/18at 09:45; Admin Dose 200 MG; Start 08/07/18 at 09:00 Miscellaneous Information (*Order Clarification Bulletin) MEDICATION REQUIRES CLARIFICATI... Q8H XX Last administered on 08/10/18at 10:13; Admin Dose 1 EA; Start 08/08/18 at 18:30 CELESTINE MURPHY M.D. Aug 10, 2018 17:35
[2018-08-10] MEDS: CEFEPIME 2GM/50 ML (PMX) 50 ML IVPB SCH (20:02)
[2018-08-10] MEDS: EPOETIN ALFA-EPBX (NON-ESRD 10,000 UNIT/ML VIAL SC SCH (20:08)
[2018-08-11] VITALS (22 sets, daily range): BP systolic 100–143; BP diastolic 48–92; PULSE 71–101; RESP 21–31
[2018-08-11] MEDS: [UNRECOGNIZED DRUG - REMARK] XX SCH ×3 (02:30→17:46)
[2018-08-11] MEDS: METOPROLOL 50 MG TAB GTB SCH ×3 (06:00→20:31)
[2018-08-11] MEDS: LEVOTHYROXINE 75 MCG TAB GTB SCH (06:17)
[2018-08-11] MEDS: BUMETANIDE 1 MG TAB GTB SCH ×2 (06:17→17:46)
[2018-08-11] MEDS: DICYCLOMINE 10 MG CAP PO SCH ×3 (06:17→20:52)
[2018-08-11] MEDS: PHENYTOIN 100 MG INJ IV SCH ×2 (06:55→20:29)
[2018-08-11] MEDS: CHOLESTYRAMINE (LIGHT) 4 GM PACKET GTB SCH ×4 (06:55→23:18)
[2018-08-11] MEDS: CITRIC ACID/NA CITRATE 30 ML CUP PO SCH (08:55)
[2018-08-11] MEDS: AMIODARONE 200 MG TAB GTB SCH (08:56)
[2018-08-11] MEDS: BALSAM PERU/CASTOR OIL 60 GM TUBE TOP SCH ×2 (08:56→20:30)
[2018-08-11] MEDS: AMLODIPINE 2.5 MG TAB PO SCH (08:56)
[2018-08-11] MEDS: NYSTATIN 30 GM POWDER BTL TOP SCH ×2 (08:56→20:30)
--- NOTE | 2018-08-11 09:52 | PN ---
DATE: 08/11/2018 SUBJECTIVE: The patient is stable, no events overnight. OBJECTIVE: VITAL SIGNS: Blood pressure is 100/57, respirations 24, pulse 71, temperature 97.9. HEENT: Head is normocephalic. NECK: Supple. HEART: Regular rate. LUNGS: Show diminished breath sounds at the base. ABDOMEN: Soft, nontender to palpation without rebound or guarding. EXTREMITIES: Negative for clubbing, cyanosis. Positive edema. DERMATOLOGIC: No rashes. MUSCULOSKELETAL: No joint effusion. NEUROLOGIC: No change in exam. MEDICATIONS: Reviewed. LABORATORY DATA: Reviewed. IMAGING STUDIES: Reviewed. ASSESSMENT AND PLAN: 1. Nonoliguric acute kidney injury with previous baseline creatinine of 2.0 mg/dL. Etiology of acut e kidney injury is secondary to acute tubular necrosis. The patient is status post hemodialysis. Re nal function is stabilized. Continue current treatment plan, supportive care, renally dose all medic ations, continue current diuretic regimen, monitor closely on colistin. 2. Volume overload. Continue current diuretic regimen. 3. Hypokalemia and hypomagnesemia. Continue to monitor and replete as needed. 4. Anemia. Continue to monitor hemoglobin and hematocrit levels. Continue Epogen. 5. Mineral bone disorder. Monitor calcium and phosphorus levels. 6. Ventilator-dependent respiratory failure. Vent settings and ABG was reviewed. Continue to monit or. 7. Sepsis secondary to endocarditis. The patient is completing antibiotic course. 8. Dysphagia. Continue tube feeding. 9. Encephalopathy. Continue to monitor. 10. History of Clostridium difficile. 11. Lower extremity wounds. Continue wound care. Dictated By: JEANA BANSAL DO NR/NTS Conf#: [id number] DID#: [id number] CC: QUINTEN UMAÑA MD; ROLAND GIRON MD;*EndCC*
[2018-08-11] MEDS: COLISTIMETHATE IVPB SCH (14:08)
[2018-08-11] MEDS: SOD CHLORIDE 0.9% IVPB SCH (14:08)
--- NOTE | 2018-08-11 16:44 | PN ---
Date/Time of Note Date/Time of Note DATE: 08/11/18 TIME: 16:43 Assessment/Plan VTE [place]axis [place] [facility] [place]: 8 [place]CD applied [place] [facility] [place] Yes Pharmacological prophylaxis: NA/contraindicated Pharm contraindication: anticoag not tolerated Lines/Catheters IV Catheter Type (from [facility]): PICC Line Central line still needed: Yes Urinary Cath still in place: Yes Reason Cath still needed: urinary retention Assessment/Plan Hospital Course Patient's continues on ventilatory support without distress, KUB noted, negative for any obstruction, patient tolerates G-tube feeding well. Pending placement. Assessment/Plan -Possible acute metabolic encephalopathy. Dr. Mathew is following in neurology consultation. -Seizures, continue Dilantin -Persistent leukocytosis with Pseudomonas bacteremia 2 to PICC line infection, continue antibiotics per ID. Dr. Doyle is following in infection disease consultation. 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 TTE 07/16/18 with notion of echodense structure on the mitral valve, calcification vs vegetation. Dr. Scanlon is following in cardiology consultation. Patient needs IV cefepime and amikacin for treatment presumed endocarditis until 08/29/2018 per ID recommendations. -Hypothyroidism, continue levothyroxine. -MDR Klebsiella urinary tract infection, completed treatment with amikacin. -Atrial fibrillation was rapid ventricular response, patient remains in sinus rhythm continue metoprolol and amiodarone. -S/p septic shock secondary to urinary tract infection, anterior neck soft tissue infection, and C. difficile colitis. -C-diff colitis,resolved. -Acute respiratory failure requiring intubation and ventilatory support. Dr. Lambert is following in pulmonology consultation. -S/p tracheostomy on 05/29/18. -Acute kidney injury on chronic kidney disease. Started on HD this admission with recovery of renal function. Dr. Mckeon is following in nephrology consultation. -Anemia of chronic inflammation, stool for OB is negative, status post blood transfusion. Continue Epogen. -Metabolic acidosis, resolved. -Acute diastolic congestive heart failure. -Paroxysmal atrial fibrillation -COPD -Dysphagia with PEG. -G-tube mild malfunction, changed by GI Dr. Carolina is following in gastroenterology consultation. -Obesity -Critical care myopathy Further recommendations based on clinical course. Plan of care discussed with Dr. Eisenberg. Result Diagram: 6/25/19 0626 6/25/19 0626 Results 24hrs Laboratory Tests Test 08/11/18 06:26 White Blood Count 6.3 Red Blood Count 2.42 L Hemoglobin 8.3 L Hematocrit 27.9 L Mean Corpuscular Volume 115.3 H Mean Corpuscular Hemoglobin 34.3 H Mean Corpuscular Hemoglobin Concent 29.7 L Red Cell Distribution Width 25.2 H Platelet Count 180 Mean Platelet Volume 10.4 Immature Granulocytes % 0.500 H Neutrophils % 72.1 Lymphocytes % 12.2 L Monocytes % 10.6 Eosinophils % 4.4 Basophils % 0.2 Nucleated Red Blood Cells % 0.0 Immature Granulocytes # 0.030 Neutrophils # 4.5 Lymphocytes # 0.8 Monocytes # 0.7 Eosinophils # 0.3 Basophils # 0.0 Nucleated Red Blood Cells # 0.0 Sodium Level 140 Potassium Level 3.6 Chloride Level 110 Carbon Dioxide Level 17 L Anion Gap 13 Blood Urea Nitrogen 96 H Creatinine 2.65 H Est Glomerular Filtrat Rate mL/min Glucose Level 111 Calcium Level 9.5 Phosphorus Level 3.2 Magnesium Level 2.0 Exam/Review of Systems Exam Vitals Vital Signs Date Temp Pulse Resp B/P (MAP) Pulse Ox O2 O2 Flow FiO2 Time Delivery Rate 08/11/18 98.6 75 104/61 99 Mechanical 15:37 (75) Ventilator 08/11/18 26 30 15:10 Intake and Output 08/10/18 08/10/18 08/11/18 1515:00 23:00 07:00 IntakeIntake Total 1200 ml 560 ml OutputOutput Total 200 ml 200 ml BalanceBalance 1000 ml 360 ml Exam Constitutional: lethargic Neck: other (Tracheostomy) Respiratory: diminished breath sounds Cardiovascular: regular rate and rhythm Gastrointestinal: soft, non-tender, distended, other (G-tube) Extremities: normal pulses Results Results 24hrs Laboratory Tests Test 08/11/18 06:26 White Blood Count 6.3 Red Blood Count 2.42 L Hemoglobin 8.3 L Hematocrit 27.9 L Mean Corpuscular Volume 115.3 H Mean Corpuscular Hemoglobin 34.3 H Mean Corpuscular Hemoglobin Concent 29.7 L Red Cell Distribution Width 25.2 H Platelet Count 180 Mean Platelet Volume 10.4 Immature Granulocytes % 0.500 H Neutrophils % 72.1 Lymphocytes % 12.2 L Monocytes % 10.6 Eosinophils % 4.4 Basophils % 0.2 Nucleated Red Blood Cells % 0.0 Immature Granulocytes # 0.030 Neutrophils # 4.5 Lymphocytes # 0.8 Monocytes # 0.7 Eosinophils # 0.3 Basophils # 0.0 Nucleated Red Blood Cells # 0.0 Sodium Level 140 Potassium Level 3.6 Chloride Level 110 Carbon Dioxide Level 17 L Anion Gap 13 Blood Urea Nitrogen 96 H Creatinine 2.65 H Est Glomerular Filtrat Rate mL/min Glucose Level 111 Calcium Level 9.5 Phosphorus Level 3.2 Magnesium Level 2.0 Medications Medication Current Medications Clonidine (Catapres) 0.1 mg Q6H PRN PO ELEVATED BLOOD PRESSURE Last administered on 08/03/18 20:27; Admin Dose 0.1 MG; Start 06/03/18 at 03:30 Bumetanide (Bumex) 1 mg BID DIURETICS GTB Last administered on 08/11/18 06:17; Admin Dose 1 MG; Start 06/11/18 at 18:00 Dicyclomine HCl (Bentyl) 20 mg Q8 PO Last administered on 08/11/18 14:08; Admin Dose 20 MG; Start 06/27/18 at 22:00 Cholestyramine Resin (Questran Light) 4 gm 0600,1200,1800,2300 GTB Last administered on 08/11/18 12:32; Admin Dose 4 GM; Start 06/27/18 at 18:00 Epoetin Zen-epbx (Retacrit (Non-Esrd)) 10,000 unit MoWeFr@1700 SC Last administered on 08/10/18 20:08; Admin Dose 10,000 UNIT; Start 07/13/18 at 17:00 Cefepime HCl 50 ml @ 100 mls/hr Q24H IVPB Last administered on 08/10/18 20:02; Admin Dose 100 MLS/HR; Start 07/14/18 at 18:30 Albuterol/ Ipratropium (Duoneb) 3 ml Q2H RESP THERAPY PRN HHN WHEEZING Last administered on 07/21/18 23:06; Admin Dose 3 ML; Start 07/21/18 at 22:00 Citric Acid/ Sodium Citrate (Bicitra) 60 ml DAILY PO Last administered on 08/11/18 08:55; Admin Dose 60 ML; Start 07/23/18 at 09:00 Levothyroxine Sodium (Synthroid) 75 mcg DAILY@06 GTB Last administered on 08/11/18 06:17; Admin Dose 75 MCG; Start 07/28/18 at 06:00 Nystatin (Nystatin Powder) 1 applic BID TOP Last administered on 08/11/18 08:56; Admin Dose 1 APPLIC; Start 07/28/18 at 17:30 IV Flush (NS 10 ml) 10 ml Q8 PRN IV IV PROTOCOL; Start 07/28/18 at 19:00 Amlodipine Besylate (Norvasc) 2.5 mg BID PO Last administered on 08/09/18 23:00; Admin Dose 2.5 MG; Start 07/30/18 at 21:00 Lorazepam (Ativan) 0.5 mg Q4 PRN IV agitation; Start 08/02/18 at 15:00 Metoprolol Tartrate (Lopressor) 75 mg Q8 GTB Last administered on 08/11/18 14:09; Admin Dose 75 MG; Start 08/04/18 at 22:00 Phenytoin (Dilantin) 250 mg Q12@0800,2000 IV Last administered on 08/11/18 06:55; Admin Dose 250 MG; Start 08/05/18 at 09:00 Colistimethate Sodium 90 mg/ Sodium Chloride 100 ml @ 200 mls/hr Q36H IVPB Last administered on 08/11/18 14:08; Admin Dose 200 MLS/HR; Start 08/05/18 at 13:30; Stop 08/29/18 at 23:45 Amiodarone HCl (Cordarone) 200 mg DAILY GTB Last administered on 08/11/18 08:56; Admin Dose 200 MG; Start 08/07/18 at 09:00 Miscellaneous Information (*Order Clarification Bulletin) MEDICATION REQUIRES CLARIFICATI... Q8H XX Last administered on 08/10/18 18:30; Admin Dose 1 EA; Start 08/08/18 at 18:30 GRISELDA DENNIS Aug 11, 2018 16:44
--- NOTE | 2018-08-11 16:48 | CONS ---
Assessment/Plan Assessment/Plan Hospital Course (Demo Recall) # sepsis, leukocytosis, SIRS, pulmonary, cardiac - recurrent leukocytosis due to bacteremia (below), improved - s/p septic shock due to pneumonia and C diff colitis - acute on chronic hypoxic respiratory failure, persistent - s/p reintubation 05/12/2018 - s/p re-do trach on 05/29/2018 - recurrent colonization of the anterior neck wound with ESBL+kleb, MRSA, GBS, corynebacteria on 05/06/2018 - h/o pneumonia vs. colonization of the airway by pseudomonas and ESBL+klebsiella - h/o possible, recurrent HCAP due to pseudomonas and ESBL+klebsiella - h/o recurrent HCAP due to MRSA and Enterobacter (culture of tracheal aspirate on 07/16/2017 that was collected at [facility]) . Pt took vancomycin and ceftazidime - h/o decannulation prior to admission - h/o tracheostomy on 06/11/2017 - h/o SIRS from UGIB in 2018 - h/o thoracentesis on 07/18/2017, transudative (protein <2, LDH 279) - h/o bleeding from the trach site in 2018 - h/o septic shock due to pneumonia, ARDS, bacteremia, fungemia in 2018 - h/o ARDS in 2018 - h/o smoking - COPD - h/o ILD per medical record - h/o PAF, improved - echodense structure in posterior leafleat region, differential includes calcification vs vegetation per 2D echo 07/15/2018 # GI - s/p possible ileus or enterocolitis on CT abd/pel 06/15/2018-->follow up CT on 07/15/2018 showed no evidence of urolithiasis, obstructive uropathy or diverticulitis; it showed small to moderate ascites-->CT on 08/04/2018 showed colonic obstruction, mild to moderate ascites, diffuse gallbladder wall thickening - C diff colitis, diagnosed on 05/11/2018. Pt is on pGT vancomycin (05/11/2018-); Pt previously took IV metronidazole (05/11/2018-05/29/2018; restart 05/30/2018- 06/05/18) too - Pt had multiple negative C. diff tests at [facility] and at OSH in the past; none was positive until 05/11/2018 - dysphagia - h/o PEG placement 06/13/2018 - protein calorie malnutrition - h/o coffee ground emesis/UGIB on 12/23/2017 due to deep ulceration of distal esophagus and gastritis on EGD 12/26/2017. No e/o H. pylori - h/o possible appendicitis on CT on 11/22/2017, Pt took ertapenem (11/24/2017- 12/01/2017) - h/o extensive adhesions lower abdominal and pelvis between small bowel to each other and to colon and to abdominal wall, anterior pelvic wall chronic abscess secondary to probably an old perforated diverticulitis, torsion of small bowel around these dense adhesion causing multiple obstructive points - h/o laparoscopic exploration and extensive lysis of adhesions and drainage of anterior pelvic wall abscess 09/16/2017. Cultures were negative, no e/o malignancy. Pt took pip/tazo (09/16/2017-09/26/2017) - h/o EGD and exchange of PEG on 09/01/2017 - h/o partial obstruction mid jejunum in L anterior central pelvis with suggestion of a 3 cm soft tissue mass on CT 08/28/2017 - h/o internal stomal deep ulcer behind the internal bumper, gastritis and esophagitis, Rodriguez's cannot be ruled out, per EGD with biopsy 07/23/2017 - h/o GIB s/p flex sig showed polyp; stool OB negative on 06/29/17 - h/o stool OB positive status - h/o SBO and ileus due to pain meds - h/o mildly elevated CEA # renal/ - s/p recurrent UTI due to pseudomonas (culture on 07/09/2018)-->Garza catheter was replaced on 07/14/2018 - s/p UTI due to MDR, CRE-klebsiella on 06/15/2018. S/p renally dosed amikacin for klebsiella in her urine culture (06/17-06/22/2018) - s/p UTI due to pseudomonas and ESBL+klebsiella on 06/09/2018, Pt took one dose of fosfomycin on 06/10/2018 and cipro 06/12-06/15/2018 - anasarca - started on HD on 05/15/2018, via Juan in R groin - recurrent NATHAN on CKD - 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 Her strain of CRE was sensitive to colistin, Avycaz, and Vabomere but resistant to Zerbaxa (reported on 05/19/2018) - metabolic acidosis - adrenal insufficiency - h/o vaginal bleed in 2018 - h/o colonization of urinary tract by ESBL+klebsiella, VRE - h/o recurrent, symptomatic UTI due to carbapenem-resistant kleb (MDR strain) per urine culture 10/04/17, 10/09/17, 10/21/2017, P took colistin (10/09/2017- 10/15/2017), fosfomycin for carbapenemase-producing klebsiella and VRE on 10/25/2017 and 10/28/2017 - h/o funguria - h/o urinary retention # bloodstream infections - bacteremia d/t pseudomonas aeruginosa 07/09/18, 07/10/18, 07/11/18, 07/12/18, 07/13/18, 07/15/18, 07/17/18. This is associated with PICC because the blood culture from PICC and phlebotomy on 07/13/2018 both grew the same bacteria. The tip of PICC that was removed on 07/14/18 also grew the same bacteria in culture. - Some strains of pseudomonas she had were pansensitive while other strains of pseudomonas were resistant to many antibiotics (MDR). - Pt's strain of pseudomonas on 07/09/2018 was resistant to all except for aminoglycosides (amikacin, gentamicin, tobramycin), colistin (IRASEMA=1, reported to be susceptible) and ceftolozane/tazobactam, but resistant to ceftaz/avibactam - Pt's strain of pseudomonas on was resistant to all except for aminoglycosides (amikacin, gentamicin, tobramycin), colistin (IRASEMA=3, no interpretation) and ceftolozane/tazobactam, but resistant to ceftaz/avibactam 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; Pt declined surgery for MVR per outside medical records; TTE 07/01/17 did not mention any thrombus; s/p voriconazole (05/25/2017-08/01/2017) - h/o bacteremia due to MSSA and proteus s/p ceftriaxone; repeat blood cultures were negative on 06/14/2017 - s/p RUE PICC line placement 07/28/2018 # musculoskeletal and dermatological - dry skin - chronic wound of LLE - h/o infection of wound of LLE - h/o debridement of wound of LLE on 08/06/2017 - h/o recurrent herpes labialis, Pt took acyclovir, valacyclovir - h/o Osler's nodes (eschar) of R toes with erythematous skin; desquamation of the skin and open lacerations on R plantar foot. improved. Probable manifestati on of endocarditis. Pt declined MRI on 08/06/2017 - h/o infection of R toes due to pseudomonas. coagulase negative Staph likely a colonizer - h/o intertrigo of the groin, resolved with nystatin powder - h/o scabies (proven by skin scraping), locally crusted lesion over L scapula, s/p permethrin cream and pGT ivermectin on 08/11/2017, 08/12/2017, 08/19/2017. Repeat skin scraping on 08/21/2017 was negative for scabies # psych, neuro - chronic toxic metabolic encephalopathy, progressing - MRI brain on 07/26/2018 showed no acute intracranial pathology - seizure activity per EEG 07/27/18 - on Dilantin - decreased hearing b/l - h/o critical illness polyneuropathy - anxiety/depression, bipolar d/o, seen by Psychiatry in the past - chronic pain syndrome - h/o medical non-compliance: she would refuse her medications, treatment and straight catheterization in 2018 - complete opacification of the bilateral mastoid air cells per MRI Brain on 07/26/2018 # hematological, vascular - chronic anemia requiring blood transfusion intermittently - macrocytic anemia - aneurysmal dilatation of the distal aorta visualized on CT 06/15/2018 - PVD # other - hypothyroidism with elevated TSH - on Synthroid recommendations: - will d/c IV colistin (08/05/2018-08/11/2018) due to rising Cr; Pt's strain of pseudomonas in her blood culture on 07/17/2018 had IRASEMA of 3 for colistin, which is between sensitive (IRASEMA 2) and intermediate (IRASEMA 4) - continue renally dosed IV cefepime (07/14/2018-); I recommend double coverage because amikacin alone did not clear her bacteremia initially - I will request another echocardiogram. If her vegetation persists, I will recommend and request approval for ceftolozane/tazobactam - we recommend 6 weeks of antibiotics for probable endocarditis from the first day of negative blood culture, i.e. 07/18/2018 through 08/29/2018 - Note: Pt finished taking amikacin IV (07/09/2018-08/05/2018) because of concern for her diminished hearing. Pt was evaluated by ENT on 08/04/2018; audiology exam not available/has not been performed - Pt finished colistin due to rising Cr level (08/05/2018-08/11/2018) - continue vancomycin pGT (07/09/18-) while on IV antibiotics given h/o C. diff. Pt completed IV metronidazole (07/09/18-07/15/18) management d/w Pt's JAYANT Miller Consultation Date/Type/Reason Admit Date/Time May 06, 2018 at 17:38 Initial Consult Date 05/10/18 Type of Consult ID Requesting Provider: ROLAND GIRON MD Date/Time of Note DATE: 08/11/18 TIME: 16:39 24 HR Interval Summary Subjective hx not possible: pt non-verbal Exam/Review of Systems Exam Vitals Vital Signs Date Temp Pulse Resp B/P (MAP) Pulse Ox O2 O2 Flow FiO2 Time Delivery Rate 08/11/18 98.6 75 104/61 99 Mechanical 15:37 (75) Ventilator 08/11/18 26 30 15:10 Intake and Output 08/10/18 08/10/18 08/11/18 1515:00 23:00 07:00 IntakeIntake Total 1200 ml 560 ml OutputOutput Total 200 ml 200 ml BalanceBalance 1000 ml 360 ml Constitutional: non-verbal, frail Psych: confusion Head: normocephalic, atraumatic Eyes: nl conjunctiva, nl lids, nl sclera ENMT: nl external ears & nose, nl nasal mucosa & septum, other (Pt would look at the examiner when her name is called but not intentional glance) Neck: other (trach) Respiratory: crackles/rales Cardiovascular: regular rate and rhythm, nl pulses, edema Gastrointestinal: soft, non-tender, surgical scars, other (GT); No distended Genitourinary - Female: other (FC) Musculoskeletal: nl extremities to inspection, swelling Neurological: [employer] II-XII intact, nl mental status; No unresponsive Skin: nl turgor, ecchymosis Results Result Diagram: 08/11/18 0626 08/11/18 0626 Results 24hrs Laboratory Tests Test 08/11/18 06:26 White Blood Count 6.3 Red Blood Count 2.42 L Hemoglobin 8.3 L Hematocrit 27.9 L Mean Corpuscular Volume 115.3 H Mean Corpuscular Hemoglobin 34.3 H Mean Corpuscular Hemoglobin Concent 29.7 L Red Cell Distribution Width 25.2 H Platelet Count 180 Mean Platelet Volume 10.4 Immature Granulocytes % 0.500 H Neutrophils % 72.1 Lymphocytes % 12.2 L Monocytes % 10.6 Eosinophils % 4.4 Basophils % 0.2 Nucleated Red Blood Cells % 0.0 Immature Granulocytes # 0.030 Neutrophils # 4.5 Lymphocytes # 0.8 Monocytes # 0.7 Eosinophils # 0.3 Basophils # 0.0 Nucleated Red Blood Cells # 0.0 Sodium Level 140 Potassium Level 3.6 Chloride Level 110 Carbon Dioxide Level 17 L Anion Gap 13 Blood Urea Nitrogen 96 H Creatinine 2.65 H Est Glomerular Filtrat Rate mL/min Glucose Level 111 Calcium Level 9.5 Phosphorus Level 3.2 Magnesium Level 2.0 Medications Medication Current Medications Clonidine (Catapres) 0.1 mg Q6H PRN PO ELEVATED BLOOD PRESSURE Last administered on 08/03/18at 20:27; Admin Dose 0.1 MG; Start 06/03/18 at 03:30 Bumetanide (Bumex) 1 mg BID DIURETICS GTB Last administered on 08/11/18 06:17; Admin Dose 1 MG; Start 06/11/18 at 18:00 Dicyclomine HCl (Bentyl) 20 mg Q8 PO Last administered on 08/11/18at 14:08; Admin Dose 20 MG; Start 06/27/18 at 22:00 Cholestyramine Resin (Questran Light) 4 gm 0600,1200,1800,2300 GTB Last administered on 08/11/18at 12:32; Admin Dose 4 GM; Start 06/27/18 at 18:00 Epoetin Zen-epbx (Retacrit (Non-Esrd)) 10,000 unit MoWeFr@1700 SC Last administered on 08/10/18 20:08; Admin Dose 10,000 UNIT; Start 07/13/18 at 17:00 Cefepime HCl 50 ml @ 100 mls/hr Q24H IVPB Last administered on 08/10/18at 20:02; Admin Dose 100 MLS/HR; Start 07/14/18 at 18:30 Albuterol/ Ipratropium (Duoneb) 3 ml Q2H RESP THERAPY PRN HHN WHEEZING Last administered on 07/21/18 23:06; Admin Dose 3 ML; Start 07/21/18 at 22:00 Citric Acid/ Sodium Citrate (Bicitra) 60 ml DAILY PO Last administered on 08/11/18 08:55; Admin Dose 60 ML; Start 07/23/18 at 09:00 Levothyroxine Sodium (Synthroid) 75 mcg DAILY@06 GTB Last administered on 08/11/18 06:17; Admin Dose 75 MCG; Start 07/28/18 at 06:00 Nystatin (Nystatin Powder) 1 applic BID TOP Last administered on 08/11/18 08:56; Admin Dose 1 APPLIC; Start 07/28/18 at 17:30 IV Flush (NS 10 ml) 10 ml Q8 PRN IV IV PROTOCOL; Start 07/28/18 at 19:00 Amlodipine Besylate (Norvasc) 2.5 mg BID PO Last administered on 08/09/18 23:00; Admin Dose 2.5 MG; Start 07/30/18 at 21:00 Lorazepam (Ativan) 0.5 mg Q4 PRN IV agitation; Start 08/02/18 at 15:00 Metoprolol Tartrate (Lopressor) 75 mg Q8 GTB Last administered on 08/11/18 14:09; Admin Dose 75 MG; Start 08/04/18 at 22:00 Phenytoin (Dilantin) 250 mg Q12@0800,2000 IV Last administered on 08/11/18 06:55; Admin Dose 250 MG; Start 08/05/18 at 09:00 Colistimethate Sodium 90 mg/ Sodium Chloride 100 ml @ 200 mls/hr Q36H IVPB Last administered on 08/11/18at 14:08; Admin Dose 200 MLS/HR; Start 08/05/18 at 13:30; Stop 08/29/18 at 23:45 Amiodarone HCl (Cordarone) 200 mg DAILY GTB Last administered on 08/11/18at 08:56; Admin Dose 200 MG; Start 08/07/18 at 09:00 Miscellaneous Information (*Order Clarification Bulletin) MEDICATION REQUIRES CLARIFICATI... Q8H XX Last administered on 08/10/18at 18:30; Admin Dose 1 EA; Start 08/08/18 at 18:30 CELESTINE MURPHY M.D. Aug 11, 2018 16:48
--- NOTE | 2018-08-11 16:50 | CONS ---
Assessment/Plan Assessment/Plan Hospital Course (Demo Recall) # sepsis, leukocytosis, SIRS, pulmonary, cardiac - recurrent leukocytosis due to bacteremia (below), improved - s/p septic shock due to pneumonia and C diff colitis - acute on chronic hypoxic respiratory failure, persistent - s/p reintubation 05/12/2018 - s/p re-do trach on 05/29/2018 - recurrent colonization of the anterior neck wound with ESBL+kleb, MRSA, GBS, corynebacteria on 05/06/2018 - h/o pneumonia vs. colonization of the airway by pseudomonas and ESBL+klebsiella - h/o possible, recurrent HCAP due to pseudomonas and ESBL+klebsiella - h/o recurrent HCAP due to MRSA and Enterobacter (culture of tracheal aspirate on 07/16/2017 that was collected at [facility]) . Pt took vancomycin and ceftazidime - h/o decannulation prior to admission - h/o tracheostomy on 06/11/2017 - h/o SIRS from UGIB in 2018 - h/o thoracentesis on 07/18/2017, transudative (protein <2, LDH 279) - h/o bleeding from the trach site in 2018 - h/o septic shock due to pneumonia, ARDS, bacteremia, fungemia in 2018 - h/o ARDS in 2018 - h/o smoking - COPD - h/o ILD per medical record - h/o PAF, improved - echodense structure in posterior leafleat region, differential includes calcification vs vegetation per 2D echo 07/15/2018 # GI - s/p possible ileus or enterocolitis on CT abd/pel 06/15/2018-->follow up CT on 07/15/2018 showed no evidence of urolithiasis, obstructive uropathy or diverticulitis; it showed small to moderate ascites-->CT on 08/04/2018 showed colonic obstruction, mild to moderate ascites, diffuse gallbladder wall thickening - C diff colitis, diagnosed on 05/11/2018. Pt took pGT vancomycin (restart 019-08/10/2018), IV metronidazole (05/11/2018-05/29/2018; restart 05/30/2018- 06/05/18) - Pt had multiple negative C. diff tests at [facility] and at OSH in the past; none was positive until 05/11/2018 - dysphagia - h/o PEG placement 06/13/2018 - protein calorie malnutrition - h/o coffee ground emesis/UGIB on 12/23/2017 due to deep ulceration of distal esophagus and gastritis on EGD 12/26/2017. No e/o H. pylori - h/o possible appendicitis on CT on 11/22/2017, Pt took ertapenem (11/24/2017- 12/01/2017) - h/o extensive adhesions lower abdominal and pelvis between small bowel to each other and to colon and to abdominal wall, anterior pelvic wall chronic abscess secondary to probably an old perforated diverticulitis, torsion of small bowel around these dense adhesion causing multiple obstructive points - h/o laparoscopic exploration and extensive lysis of adhesions and drainage of anterior pelvic wall abscess 09/16/2017. Cultures were negative, no e/o malignancy. Pt took pip/tazo (09/16/2017-09/26/2017) - h/o EGD and exchange of PEG on 09/01/2017 - h/o partial obstruction mid jejunum in L anterior central pelvis with suggestion of a 3 cm soft tissue mass on CT 08/28/2017 - h/o internal stomal deep ulcer behind the internal bumper, gastritis and esophagitis, Rodriguez's cannot be ruled out, per EGD with biopsy 07/23/2017 - h/o GIB s/p flex sig showed polyp; stool OB negative on 06/29/17 - h/o stool OB positive status - h/o SBO and ileus due to pain meds - h/o mildly elevated CEA # renal/ - s/p recurrent UTI due to pseudomonas (culture on 07/09/2018)-->Garza catheter was replaced on 07/14/2018 - s/p UTI due to MDR, CRE-klebsiella on 06/15/2018. S/p renally dosed amikacin for klebsiella in her urine culture (06/17-06/22/2018) - s/p UTI due to pseudomonas and ESBL+klebsiella on 06/09/2018, Pt took one dose of fosfomycin on 06/10/2018 and cipro 06/12-06/15/2018 - anasarca - started on HD on 05/15/2018, via Juan in R groin - recurrent NATHAN on CKD - 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 Her strain of CRE was sensitive to colistin, Avycaz, and Vabomere but resistant to Zerbaxa (reported on 05/19/2018) - metabolic acidosis - adrenal insufficiency - h/o vaginal bleed in 2018 - h/o colonization of urinary tract by ESBL+klebsiella, VRE - h/o recurrent, symptomatic UTI due to carbapenem-resistant kleb (MDR strain) per urine culture 10/04/17, 10/09/17, 10/21/2017, P took colistin (10/09/2017- 10/15/2017), fosfomycin for carbapenemase-producing klebsiella and VRE on 10/25/2017 and 10/28/2017 - h/o funguria - h/o urinary retention # bloodstream infections - bacteremia d/t pseudomonas aeruginosa 07/09/18, 07/10/18, 07/11/18, 07/12/18, 07/13/18, 07/15/18, 07/17/18. This is associated with PICC because the blood culture from PICC and phlebotomy on 07/13/2018 both grew the same bacteria. The tip of PICC that was removed on 07/14/18 also grew the same bacteria in culture. - Some strains of pseudomonas she had were pansensitive while other strains of pseudomonas were resistant to many antibiotics (MDR). - Pt's strain of pseudomonas on 07/09/2018 was resistant to all except for aminoglycosides (amikacin, gentamicin, tobramycin), colistin (IRASEMA=1, reported to be susceptible) and ceftolozane/tazobactam, but resistant to ceftaz/avibactam - Pt's strain of pseudomonas on was resistant to all except for aminoglycosides (amikacin, gentamicin, tobramycin), colistin (IRASEMA=3, no interpretation) and ceftolozane/tazobactam, but resistant to ceftaz/avibactam 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; Pt declined surgery for MVR per outside medical records; TTE 07/01/17 did not mention any thrombus; s/p voriconazole (05/25/2017-08/01/2017) - h/o bacteremia due to MSSA and proteus s/p ceftriaxone; repeat blood cultures were negative on 06/14/2017 - s/p RUE PICC line placement 07/28/2018 # musculoskeletal and dermatological - dry skin - chronic wound of LLE - h/o infection of wound of LLE - h/o debridement of wound of LLE on 08/06/2017 - h/o recurrent herpes labialis, Pt took acyclovir, valacyclovir - h/o Osler's nodes (eschar) of R toes with erythematous skin; desquamation of the skin and open lacerations on R plantar foot. improved. Probable manifestation of endocarditis. Pt declined MRI on 08/06/2017 - h/o infection of R toes due to pseudomonas. coagulase negative Staph likely a colonizer - h/o intertrigo of the groin, resolved with nystatin powder - h/o scabies (proven by skin scraping), locally crusted lesion over L scapula, s/p permethrin cream and pGT ivermectin on 08/11/2017, 08/12/2017, 08/19/2017. Repeat skin scraping on 08/21/2017 was negative for scabies # psych, neuro - chronic toxic metabolic encephalopathy, progressing - MRI brain on 07/26/2018 showed no acute intracranial pathology - seizure activity per EEG 07/27/18 - on Dilantin - decreased hearing b/l - h/o critical illness polyneuropathy - anxiety/depression, bipolar d/o, seen by Psychiatry in the past - chronic pain syndrome - h/o medical non-compliance: she would refuse her medications, treatment and straight catheterization in 2018 - complete opacification of the bilateral mastoid air cells per MRI Brain on 07/26/2018 # hematological, vascular - chronic anemia requiring blood transfusion intermittently - macrocytic anemia - aneurysmal dilatation of the distal aorta visualized on CT 06/15/2018 - PVD # other - hypothyroidism with elevated TSH - on Synthroid REVISED recommendations: - will d/c IV colistin (08/05/2018-08/11/2018) due to rising Cr; Pt's strain of pseudomonas in her blood culture on 07/17/2018 had IRASEMA of 3 for colistin, which is between sensitive (IRASEMA 2) and intermediate (IRASEMA 4) - continue renally dosed IV cefepime (07/14/2018-); I recommend double coverage because amikacin alone did not clear her bacteremia initially - I will request another echocardiogram. If her vegetation persists, I will recommend and request approval for ceftolozane/tazobactam - we recommend 6 weeks of antibiotics for probable endocarditis from the first day of negative blood culture, i.e. 07/18/2018 through 08/29/2018 - Note: Pt finished taking amikacin IV (07/09/2018-08/05/2018) because of concern for her diminished hearing. Pt was evaluated by ENT on 08/04/2018; audiology exam not available/has not been performed - Pt finished colistin due to rising Cr level (08/05/2018-08/11/2018) management d/w Pt's JAYANT Miller Consultation Date/Type/Reason Admit Date/Time May 06, 2018 at 17:38 Initial Consult Date 05/10/18 Type of Consult ID Requesting Provider: ROLAND GIRON MD Date/Time of Note DATE: 08/11/18 TIME: 16:48 Exam/Review of Systems Exam Vitals Vital Signs Date Temp Pulse Resp B/P (MAP) Pulse Ox O2 O2 Flow FiO2 Time Delivery Rate 08/11/18 98.6 75 104/61 99 Mechanical 15:37 (75) Ventilator 08/11/18 26 30 15:10 Intake and Output 08/10/18 08/10/18 08/11/18 1515:00 23:00 07:00 IntakeIntake Total 1200 ml 560 ml OutputOutput Total 200 ml 200 ml BalanceBalance 1000 ml 360 ml Results Result Diagram: 08/11/18 0608/11/18625 Results 24hrs Laboratory Tests Test 08/11/18 06:26 White Blood Count 6.3 Red Blood Count 2.42 L Hemoglobin 8.3 L Hematocrit 27.9 L Mean Corpuscular Volume 115.3 H Mean Corpuscular Hemoglobin 34.3 H Mean Corpuscular Hemoglobin Concent 29.7 L Red Cell Distribution Width 25.2 H Platelet Count 180 Mean Platelet Volume 10.4 Immature Granulocytes % 0.500 H Neutrophils % 72.1 Lymphocytes % 12.2 L Monocytes % 10.6 Eosinophils % 4.4 Basophils % 0.2 Nucleated Red Blood Cells % 0.0 Immature Granulocytes # 0.030 Neutrophils # 4.5 Lymphocytes # 0.8 Monocytes # 0.7 Eosinophils # 0.3 Basophils # 0.0 Nucleated Red Blood Cells # 0.0 Sodium Level 140 Potassium Level 3.6 Chloride Level 110 Carbon Dioxide Level 17 L Anion Gap 13 Blood Urea Nitrogen 96 H Creatinine 2.65 H Est Glomerular Filtrat Rate mL/min Glucose Level 111 Calcium Level 9.5 Phosphorus Level 3.2 Magnesium Level 2.0 Medications Medication Current Medications Clonidine (Catapres) 0.1 mg Q6H PRN PO ELEVATED BLOOD PRESSURE Last administered on 08/03/18 20:27; Admin Dose 0.1 MG; Start 06/03/18 at 03:30 Bumetanide (Bumex) 1 mg BID DIURETICS GTB Last administered on 08/11/18 06:17; Admin Dose 1 MG; Start 06/11/18 at 18:00 Dicyclomine HCl (Bentyl) 20 mg Q8 PO Last administered on 08/11/18 14:08; Admin Dose 20 MG; Start 06/27/18 at 22:00 Cholestyramine Resin (Questran Light) 4 gm 0600,1200,1800,2300 GTB Last administered on 08/11/18 12:32; Admin Dose 4 GM; Start 06/27/18 at 18:00 Epoetin Zen-epbx (Retacrit (Non-Esrd)) 10,000 unit MoWeFr@1700 SC Last administered on 08/10/18 20:08; Admin Dose 10,000 UNIT; Start 07/13/18 at 17:00 Cefepime HCl 50 ml @ 100 mls/hr Q24H IVPB Last administered on 08/10/18 20:02; Admin Dose 100 MLS/HR; Start 07/14/18 at 18:30 Albuterol/ Ipratropium (Duoneb) 3 ml Q2H RESP THERAPY PRN HHN WHEEZING Last administered on 07/21/18 23:06; Admin Dose 3 ML; Start 07/21/18 at 22:00 Citric Acid/ Sodium Citrate (Bicitra) 60 ml DAILY PO Last administered on 08/11/18 08:55; Admin Dose 60 ML; Start 07/23/18 at 09:00 Levothyroxine Sodium (Synthroid) 75 mcg DAILY@06 GTB Last administered on 08/11/18 06:17; Admin Dose 75 MCG; Start 07/28/18 at 06:00 Nystatin (Nystatin Powder) 1 applic BID TOP Last administered on 08/11/18 08:56; Admin Dose 1 APPLIC; Start 07/28/18 at 17:30 IV Flush (NS 10 ml) 10 ml Q8 PRN IV IV PROTOCOL; Start 07/28/18 at 19:00 Amlodipine Besylate (Norvasc) 2.5 mg BID PO Last administered on 08/09/18 23:00; Admin Dose 2.5 MG; Start 07/30/18 at 21:00 Lorazepam (Ativan) 0.5 mg Q4 PRN IV agitation; Start 08/02/18 at 15:00 Metoprolol Tartrate (Lopressor) 75 mg Q8 GTB Last administered on 08/11/18 14:09; Admin Dose 75 MG; Start 08/04/18 at 22:00 Phenytoin (Dilantin) 250 mg Q12@0800,2000 IV Last administered on 08/11/18 06:55; Admin Dose 250 MG; Start 08/05/18 at 09:00 Colistimethate Sodium 90 mg/ Sodium Chloride 100 ml @ 200 mls/hr Q36H IVPB Last administered on 08/11/18 14:08; Admin Dose 200 MLS/HR; Start 08/05/18 at 13:30; Stop 08/29/18 at 23:45 Amiodarone HCl (Cordarone) 200 mg DAILY GTB Last administered on 08/11/18 08:56; Admin Dose 200 MG; Start 08/07/18 at 09:00 Miscellaneous Information (*Order Clarification Bulletin) MEDICATION REQUIRES CLARIFICATI... Q8H XX Last administered on 08/10/18 18:30; Admin Dose 1 EA; Start 08/08/18 at 18:30 CELESTINE MURPHY M.D. Aug 11, 2018 16:50
[2018-08-11] MEDS: CEFEPIME 2GM/50 ML (PMX) 50 ML IVPB SCH (17:46)
--- NOTE | 2018-08-11 18:30 | CONS ---
Assessment/Plan Assessment/Plan Hospital Course (Demo Recall) Sepsis Acute respiratory failure status post intubation and repeat tracheostomy Acute blood loss anemia History of respiratory failure status post decannulation Preserved ejection fraction echocardiogram 05/10/2018 Paroxysmal atrial fibrillation Acute kidney injury Presumed mitral valve endocarditis -Blood pressure on the lower side, would DC amlodipine and decrease dose of Lopressor -Antibiotics as per infectious disease -Continue amiodarone as tolerated -Vent management as per pulmonary -Fluid management and electrolytes as per renal -No anticoagulation given recurrent anemia requiring blood transfusions Consultation Date/Type/Reason Admit Date/Time May 06, 2018 at 17:38 Initial Consult Date 05/10/18 Type of Consult Cardiology Requesting Provider: ROLAND GIRON MD Date/Time of Note DATE: 08/11/18 TIME: 18:29 24 HR Interval Summary Free Text/Dictation Patient seen and examined. Sleeping Exam/Review of Systems Vital Signs Vitals Vital Signs Date Temp Pulse Resp B/P (MAP) Pulse Ox O2 O2 Flow FiO2 Time Delivery Rate 08/11/18 76 25 100 30 17:20 08/11/18 98.6 104/61 Mechanical 15:37 (75) Ventilator Intake and Output 08/10/18 08/10/18 08/11/18 1414:59 22:59 06:59 IntakeIntake Total 1200 ml 560 ml OutputOutput Total 200 ml 200 ml BalanceBalance 1000 ml 360 ml Exam Exam Sleeping, no apparent distress Head: normocephalic Respiratory: other (Coarse breath sounds bilaterally, no wheezing) Cardiovascular: regular rate and rhythm (S1-S2 heard) Gastrointestinal: soft, non-tender, bowel sounds Extremities: edema Labs Result Diagram: 08/11/18 0626 08/11/18 0626 Results 24hrs Laboratory Tests Test 08/11/18 06:26 White Blood Count 6.3 Red Blood Count 2.42 L Hemoglobin 8.3 L Hematocrit 27.9 L Mean Corpuscular Volume 115.3 H Mean Corpuscular Hemoglobin 34.3 H Mean Corpuscular Hemoglobin Concent 29.7 L Red Cell Distribution Width 25.2 H Platelet Count 180 Mean Platelet Volume 10.4 Immature Granulocytes % 0.500 H Neutrophils % 72.1 Lymphocytes % 12.2 L Monocytes % 10.6 Eosinophils % 4.4 Basophils % 0.2 Nucleated Red Blood Cells % 0.0 Immature Granulocytes # 0.030 Neutrophils # 4.5 Lymphocytes # 0.8 Monocytes # 0.7 Eosinophils # 0.3 Basophils # 0.0 Nucleated Red Blood Cells # 0.0 Sodium Level 140 Potassium Level 3.6 Chloride Level 110 Carbon Dioxide Level 17 L Anion Gap 13 Blood Urea Nitrogen 96 H Creatinine 2.65 H Est Glomerular Filtrat Rate mL/min Glucose Level 111 Calcium Level 9.5 Phosphorus Level 3.2 Magnesium Level 2.0 Medications Medications Current Medications Clonidine (Catapres) 0.1 mg Q6H PRN PO ELEVATED BLOOD PRESSURE Last administered on 08/03/18 20:27; Admin Dose 0.1 MG; Start 06/03/18 at 03:30 Bumetanide (Bumex) 1 mg BID DIURETICS GTB Last administered on 08/11/18 17:46; Admin Dose 1 MG; Start 06/11/18 at 18:00 Dicyclomine HCl (Bentyl) 20 mg Q8 PO Last administered on 08/11/18 14:08; Admin Dose 20 MG; Start 06/27/18 at 22:00 Cholestyramine Resin (Questran Light) 4 gm 0600,1200,1800,2300 GTB Last administered on 08/11/18 17:46; Admin Dose 4 GM; Start 06/27/18 at 18:00 Epoetin Zen-epbx (Retacrit (Non-Esrd)) 10,000 unit MoWeFr@1700 SC Last administered on 08/10/18 20:08; Admin Dose 10,000 UNIT; Start 07/13/18 at 17:00 Cefepime HCl 50 ml @ 100 mls/hr Q24H IVPB Last administered on 08/11/18 17:46; Admin Dose 100 MLS/HR; Start 07/14/18 at 18:30 Albuterol/ Ipratropium (Duoneb) 3 ml Q2H RESP THERAPY PRN HHN WHEEZING Last administered on 07/21/18 23:06; Admin Dose 3 ML; Start 07/21/18 at 22:00 Citric Acid/ Sodium Citrate (Bicitra) 60 ml DAILY PO Last administered on 08/11/18 08:55; Admin Dose 60 ML; Start 07/23/18 at 09:00 Levothyroxine Sodium (Synthroid) 75 mcg DAILY@06 GTB Last administered on 08/11/18 06:17; Admin Dose 75 MCG; Start 07/28/18 at 06:00 Nystatin (Nystatin Powder) 1 applic BID TOP Last administered on 08/11/18 08:56; Admin Dose 1 APPLIC; Start 07/28/18 at 17:30 IV Flush (NS 10 ml) 10 ml Q8 PRN IV IV PROTOCOL; Start 07/28/18 at 19:00 Amlodipine Besylate (Norvasc) 2.5 mg BID PO Last administered on 08/09/18 23:00; Admin Dose 2.5 MG; Start 07/30/18 at 21:00 Lorazepam (Ativan) 0.5 mg Q4 PRN IV agitation; Start 08/02/18 at 15:00 Metoprolol Tartrate (Lopressor) 75 mg Q8 GTB Last administered on 08/11/18 14:09; Admin Dose 75 MG; Start 08/04/18 at 22:00 Phenytoin (Dilantin) 250 mg Q12@0800,2000 IV Last administered on 08/11/18 06:55; Admin Dose 250 MG; Start 08/05/18 at 09:00 Amiodarone HCl (Cordarone) 200 mg DAILY GTB Last administered on 08/11/18 08:56; Admin Dose 200 MG; Start 08/07/18 at 09:00 Miscellaneous Information (*Order Clarification Bulletin) MEDICATION REQUIRES CLARIFICATI... Q8H XX Last administered on 08/10/18 18:30; Admin Dose 1 EA; Start 08/08/18 at 18:30 Evangelista Scanlon DO Aug 11, 2018 18:30
[2018-08-12] VITALS (24 sets, daily range): BP systolic 101–121; BP diastolic 51–68; PULSE 38–81; RESP 20–26
[2018-08-12] MEDS: [UNRECOGNIZED DRUG - REMARK] XX SCH ×3 (02:30→17:24)
[2018-08-12] MEDS: METOPROLOL 50 MG TAB GTB SCH ×3 (05:06→21:03)
[2018-08-12] MEDS: BUMETANIDE 1 MG TAB GTB SCH ×2 (06:22→17:27)
[2018-08-12] MEDS: CHOLESTYRAMINE (LIGHT) 4 GM PACKET GTB SCH ×4 (06:22→22:28)
[2018-08-12] MEDS: LEVOTHYROXINE 75 MCG TAB GTB SCH (06:22)
[2018-08-12] MEDS: DICYCLOMINE 10 MG CAP PO SCH ×3 (06:23→22:29)
[2018-08-12] MEDS: PHENYTOIN 100 MG INJ IV SCH ×2 (09:05→21:03)
[2018-08-12] MEDS: CITRIC ACID/NA CITRATE 30 ML CUP PO SCH (09:05)
--- NOTE | 2018-08-12 09:05 | PN ---
DATE: 08/12/2018 SUBJECTIVE: The patient is stable. No events overnight. OBJECTIVE: VITAL SIGNS: Blood pressure is 110/60, pulse 75, respirations 25, temperature 98.5. HEENT: Head is normocephalic. NECK: Supple. HEART: Regular rate. LUNGS: Show diminished breath sounds at the base. ABDOMEN: Soft. Nontender to palpation. No rebound or guarding. EXTREMITIES: Negative for clubbing, cyanosis, positive edema. DERMATOLOGIC: No rashes. MUSCULOSKELETAL: No joint effusion. NEUROLOGIC: No change in exam. MEDICATIONS: Reviewed. LABORATORY DATA: Reviewed. IMAGING STUDIES: Reviewed. ASSESSMENT AND PLAN: 1. Nonoliguric acute kidney injury with previous baseline creatinine of 2.0 mg/dL. Etiology of acut e kidney injury is secondary to acute tubular necrosis. Renal function is stabilized. Continue curr ent treatment plan, supportive care, renally dose all medications. Monitor closely on colistin. 2. Volume overload. Continue current diuretic regimen. 3. Hypokalemia and hypomagnesemia. Continue to monitor and replete as needed. 4. Anemia. Monitor hemoglobin and hematocrit levels. Continue Epogen. 5. Mineral bone disorder, monitor calcium and phosphorus levels. 6. Ventilator-dependent respiratory failure. Vent settings and ABG was reviewed. Continue to monit or. 7. Sepsis secondary to endocarditis. The patient is completing antibiotic course. 8. Dysphagia. Continue tube feeding. 9. Encephalopathy. Continue to monitor. 10. History of Clostridium difficile. 11. Lower extremity wounds. Continue wound care. Dictated By: JEANA BANSAL DO NR/NTS Conf#: [id number] DID#: [id number] CC: ROLAND GIRON MD; QUINTEN UMAÑA MD;*EndCC*
[2018-08-12] MEDS: NYSTATIN 30 GM POWDER BTL TOP SCH ×2 (09:06→21:04)
[2018-08-12] MEDS: BALSAM PERU/CASTOR OIL 60 GM TUBE TOP SCH ×2 (09:06→21:04)
[2018-08-12] MEDS: AMIODARONE 200 MG TAB GTB SCH (09:06)
--- NOTE | 2018-08-12 12:25 | CONS ---
Assessment/Plan Assessment/Plan Hospital Course (Demo Recall) # sepsis, leukocytosis, SIRS, pulmonary, cardiac - recurrent leukocytosis due to bacteremia (below), improved - s/p septic shock due to pneumonia and C diff colitis - acute on chronic hypoxic respiratory failure, persistent - s/p reintubation 05/12/2018 - s/p re-do trach on 05/29/2018 - recurrent colonization of the anterior neck wound with ESBL+kleb, MRSA, GBS, corynebacteria on 05/06/2018 - h/o pneumonia vs. colonization of the airway by pseudomonas and ESBL+klebsiella - h/o possible, recurrent HCAP due to pseudomonas and ESBL+klebsiella - h/o recurrent HCAP due to MRSA and Enterobacter (culture of tracheal aspirate on 07/16/2017 that was collected at [facility]) . Pt took vancomycin and ceftazidime - h/o decannulation prior to admission - h/o tracheostomy on 06/11/2017 - h/o SIRS from UGIB in 2018 - h/o thoracentesis on 07/18/2017, transudative (protein <2, LDH 279) - h/o bleeding from the trach site in 2018 - h/o septic shock due to pneumonia, ARDS, bacteremia, fungemia in 2018 - h/o ARDS in 2018 - h/o smoking - COPD - h/o ILD per medical record - h/o PAF, improved - echodense structure in posterior leafleat region, differential includes calcification vs vegetation per 2D echo 07/15/2018 # GI - s/p possible ileus or enterocolitis on CT abd/pel 06/15/2018-->follow up CT on 07/15/2018 showed no evidence of urolithiasis, obstructive uropathy or diverticulitis; it showed small to moderate ascites-->CT on 08/04/2018 showed colonic obstruction, mild to moderate ascites, diffuse gallbladder wall thickening - C diff colitis, diagnosed on 05/11/2018. Pt took pGT vancomycin (restart 019-08/10/2018), IV metronidazole (05/11/2018-05/29/2018; restart 05/30/2018- 06/05/18) - Pt had multiple negative C. diff tests at [facility] and at [facility] in the past; none was positive until 05/11/2018 - dysphagia - h/o PEG placement 06/13/2018 - protein calorie malnutrition - h/o coffee ground emesis/UGIB on 12/23/2017 due to deep ulceration of distal esophagus and gastritis on EGD 12/26/2017. No e/o H. pylori - h/o possible appendicitis on CT on 11/22/2017, Pt took ertapenem (11/24/2017- 12/01/2017) - h/o extensive adhesions lower abdominal and pelvis between small bowel to each other and to colon and to abdominal wall, anterior pelvic wall chronic abscess secondary to probably an old perforated diverticulitis, torsion of small bowel around these dense adhesion causing multiple obstructive points - h/o laparoscopic exploration and extensive lysis of adhesions and drainage of anterior pelvic wall abscess 09/16/2017. Cultures were negative, no e/o malignancy. Pt took pip/tazo (09/16/2017-09/26/2017) - h/o EGD and exchange of PEG on 09/01/2017 - h/o partial obstruction mid jejunum in L anterior central pelvis with suggestion of a 3 cm soft tissue mass on CT 08/28/2017 - h/o internal stomal deep ulcer behind the internal bumper, gastritis and esophagitis, Rodriguez's cannot be ruled out, per EGD with biopsy 07/23/2017 - h/o GIB s/p flex sig showed polyp; stool OB negative on 06/29/17 - h/o stool OB positive status - h/o SBO and ileus due to pain meds - h/o mildly elevated CEA # renal/ - s/p recurrent UTI due to pseudomonas (culture on 07/09/2018)-->Garza catheter was replaced on 07/14/2018 - s/p UTI due to MDR, CRE-klebsiella on 06/15/2018. S/p renally dosed amikacin for klebsiella in her urine culture (06/17-06/22/2018) - s/p UTI due to pseudomonas and ESBL+klebsiella on 06/09/2018, Pt took one dose of fosfomycin on 06/10/2018 and cipro 06/12-06/15/2018 - anasarca - started on HD on 05/15/2018, via Juan in R groin - recurrent NATHAN on CKD - 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 Her strain of CRE was sensitive to colistin, Avycaz, and Vabomere but resistant to Zerbaxa (reported on 05/19/2018) - metabolic acidosis - adrenal insufficiency - h/o vaginal bleed in 2018 - h/o colonization of urinary tract by ESBL+klebsiella, VRE - h/o recurrent, symptomatic UTI due to carbapenem-resistant kleb (MDR strain) per urine culture 10/04/17, 10/09/17, 10/21/2017, P took colistin (10/09/2017- 10/15/2017), fosfomycin for carbapenemase-producing klebsiella and VRE on 10/25/2017 and 10/28/2017 - h/o funguria - h/o urinary retention # bloodstream infections - bacteremia d/t pseudomonas aeruginosa 07/09/18, 07/10/18, 07/11/18, 07/12/18, 07/13/18, 07/15/18, 07/17/18. This is associated with PICC because the blood culture from PICC and phlebotomy on 07/13/2018 both grew the same bacteria. The tip of PICC that was removed on 07/14/18 also grew the same bacteria in culture. - Some strains of pseudomonas she had were pansensitive while other strains of pseudomonas were resistant to many antibiotics (MDR). - Pt's strain of pseudomonas on 07/09/2018 was resistant to all except for aminoglycosides (amikacin, gentamicin, tobramycin), colistin (IRASEMA=1, reported to be susceptible) and ceftolozane/tazobactam, but resistant to ceftaz/avibactam - Pt's strain of pseudomonas on was resistant to all except for aminoglycosides (amikacin, gentamicin, tobramycin), colistin (IRASEMA=3, no interpretation) and ceftolozane/tazobactam, but resistant to ceftaz/avibactam 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; Pt declined surgery for MVR per outside medical records; TTE 07/01/17 did not mention any thrombus; s/p voriconazole (05/25/2017-08/01/2017) - h/o bacteremia due to MSSA and proteus s/p ceftriaxone; repeat blood cultures were negative on 06/14/2017 - s/p RUE PICC line placement 07/28/2018 # musculoskeletal and dermatological - dry skin - chronic wound of LLE - h/o infection of wound of LLE - h/o debridement of wound of LLE on 08/06/2017 - h/o recurrent herpes labialis, Pt took acyclovir, valacyclovir - h/o Osler's nodes (eschar) of R toes with erythematous skin; desquamation of the skin and open lacerations on R plantar foot. improved. Probable manifestation of endocarditis. Pt declined MRI on 08/06/2017 - h/o infection of R toes due to pseudomonas. coagulase negative Staph likely a colonizer - h/o intertrigo of the groin, resolved with nystatin powder - h/o scabies (proven by skin scraping), locally crusted lesion over L scapula, s/p permethrin cream and pGT ivermectin on 08/11/2017, 08/12/2017, 08/19/2017. Repeat skin scraping on 08/21/2017 was negative for scabies # psych, neuro - chronic toxic metabolic encephalopathy, progressing - MRI brain on 07/26/2018 showed no acute intracranial pathology - seizure activity per EEG 07/27/18 - on Dilantin - decreased hearing b/l - h/o critical illness polyneuropathy - anxiety/depression, bipolar d/o, seen by Psychiatry in the past - chronic pain syndrome - h/o medical non-compliance: she would refuse her medications, treatment and straight catheterization in 2018 - complete opacification of the bilateral mastoid air cells per MRI Brain on 07/26/2018 # hematological, vascular - chronic anemia requiring blood transfusion intermittently - macrocytic anemia - aneurysmal dilatation of the distal aorta visualized on CT 06/15/2018 - PVD # other - hypothyroidism with elevated TSH - on Synthroid recommendations: - we recommend 6 weeks of antibiotics for probable endocarditis from the first day of negative blood culture, i.e. 07/18/2018 through 08/29/2018. She had MDR pseudomonas and her antibiotic options are limited. I stopped both IV amikacin (07/09/2018-08/05/2018) and IV colistin (08/05/2018-08/11/2018) for a concern of side effects, diminished hearing (amikacin) and nephrotoxicity and neuromuscular impact (colitin). I requested another echocardiogram by Dr. Scanlon. If valvular vegetation persists, I will recommend and request approval for ceftolozane/tazobactam management d/w Dr. Scanlon Consultation Date/Type/Reason Admit Date/Time May 06, 2018 at 17:38 Initial Consult Date 05/10/18 Type of Consult ID Requesting Provider: RLOAND GIRON MD Date/Time of Note DATE: 08/12/18 TIME: 12:04 24 HR Interval Summary Subjective hx not possible: pt non-verbal, pt critical, pt critical status Exam/Review of Systems Exam Vitals Vital Signs Date Temp Pulse Resp B/P (MAP) Pulse Ox O2 O2 Flow FiO2 Time Delivery Rate 08/12/18 98.9 66 22 101/53 100 Mechanical 11:00 (69) Ventilator 08/12/18 30 09:40 Intake and Output 08/11/18 08/11/18 08/12/18 1515:00 23:00 07:00 IntakeIntake Total 100 ml 130 ml 630 ml OutputOutput Total 250 ml 450 ml BalanceBalance 100 ml -120 ml 180 ml Constitutional: non-verbal, frail Psych: confusion Head: normocephalic, atraumatic Eyes: nl conjunctiva, nl sclera, other (sheryl-orbital swelling) ENMT: nl external ears & nose, nl nasal mucosa & septum, mucosa pink and moist Neck: other (trach) Respiratory: diminished breath sounds Cardiovascular: regular rate and rhythm, nl pulses, edema Gastrointestinal: soft, non-tender, surgical scars; No distended Musculoskeletal: nl extremities to inspection Extremities: edema Neurological: lethargic Skin: ecchymosis Results Result Diagram: 08/11/1862508/11/18625 Medications Medication Current Medications Clonidine (Catapres) 0.1 mg Q6H PRN PO ELEVATED BLOOD PRESSURE Last administered on 08/03/18at 20:27; Admin Dose 0.1 MG; Start 06/03/18 at 03:30 Bumetanide (Bumex) 1 mg BID DIURETICS GTB Last administered on 6/26/19at 06:22; Admin Dose 1 MG; Start 06/11/18 at 18:00 Dicyclomine HCl (Bentyl) 20 mg Q8 PO Last administered on 08/12/18 06:23; Admin Dose 20 MG; Start 06/27/18 at 22:00 Cholestyramine Resin (Questran Light) 4 gm 0600,1200,1800,2300 GTB Last administered on 08/12/18 06:22; Admin Dose 4 GM; Start 06/27/18 at 18:00 Epoetin Zen-epbx (Retacrit (Non-Esrd)) 10,000 unit MoWeFr@1700 SC Last admi nistered on 08/10/18 20:08; Admin Dose 10,000 UNIT; Start 07/13/18 at 17:00 Cefepime HCl 50 ml @ 100 mls/hr Q24H IVPB Last administered on 08/11/18 17:46; Admin Dose 100 MLS/HR; Start 07/14/18 at 18:30 Albuterol/ Ipratropium (Duoneb) 3 ml Q2H RESP THERAPY PRN HHN WHEEZING Last administered on 07/21/18 23:06; Admin Dose 3 ML; Start 07/21/18 at 22:00 Citric Acid/ Sodium Citrate (Bicitra) 60 ml DAILY PO Last administered on 08/12/18 09:05; Admin Dose 60 ML; Start 07/23/18 at 09:00 Levothyroxine Sodium (Synthroid) 75 mcg DAILY@06 GTB Last administered on 08/12/18 06:22; Admin Dose 75 MCG; Start 07/28/18 at 06:00 Nystatin (Nystatin Powder) 1 applic BID TOP Last administered on 08/12/18at 0 9:06; Admin Dose 1 APPLIC; Start 07/28/18 at 17:30 IV Flush (NS 10 ml) 10 ml Q8 PRN IV IV PROTOCOL; Start 07/28/18 at 19:00 Lorazepam (Ativan) 0.5 mg Q4 PRN IV agitation; Start 08/02/18 at 15:00 Phenytoin (Dilantin) 250 mg Q12@0800,2000 IV Last administered on 08/12/18 09:05; Admin Dose 250 MG; Start 08/05/18 at 09:00 Amiodarone HCl (Cordarone) 200 mg DAILY GTB Last administered on 08/12/18at 09:06; Admin Dose 200 MG; Start 08/07/18 at 09:00 Miscellaneous Information (*Order Clarification Bulletin) MEDICATION REQUIRES CLARIFICATI... Q8H XX Last administered on 08/10/18at 18:30; Admin Dose 1 EA; Start 08/08/18 at 18:30 Metoprolol Tartrate (Lopressor) 50 mg Q8 GTB ; Start 08/11/18 at 22:00 CELESTINE MURPHY M.D. Aug 12, 2018 12:14
[2018-08-12] MEDS: CEFEPIME 2GM/50 ML (PMX) 50 ML IVPB SCH (17:27)
[2018-08-12] MEDS: EPOETIN ALFA-EPBX (NON-ESRD 10,000 UNIT/ML VIAL SC SCH (17:29)
--- NOTE | 2018-08-12 17:53 | PN ---
Date/Time of Note Date/Time of Note DATE: 08/12/18 TIME: 17:47 Assessment/Plan VTE Prophylaxis Risk score (from [facility]0 risk: 10 SCD applied (from [facility] [place]): Yes Pharmacological prophylaxis: NA/contraindicated Pharm contraindication: anticoag not tolerated Lines/Catheters IV Catheter Type (from [facility]): PICC Line Central line still needed: Yes Urinary Cath still in place: Yes Reason Cath still needed: urinary retention Assessment/Plan Hospital Course Patient had a 2 episodes of bradycardia with heart rate going to 38-40 ov ernight, on metoprolol with parameters. Continue telemetry monitoring, will discuss with cardiology. Plan of care discussed with case management patient has a placement in [facility]. Assessment/Plan -Possible acute metabolic encephalopathy. Dr. Mathew is following in neurology consultation. -Seizures, continue Dilantin -Persistent leukocytosis with Pseudomonas bacteremia 2 to PICC line infection, continue antibiotics per ID. Dr. Doyle is following in infection disease consultation. 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 TTE 07/16/18 with notion of echodense structure on the mitral valve, calcification vs vegetation. Dr. Scanlon is following in cardiology consultation. Patient needs IV cefepime and amikacin for treatment presumed endocarditis until 08/29/2018 per ID recommendations. -Hypothyroidism, continue levothyroxine. -MDR Klebsiella urinary tract infection, completed treatment with amikacin. -Atrial fibrillation was rapid ventricular response, patient remains in sinus rhythm continue metoprolol and amiodarone. -S/p septic shock secondary to urinary tract infection, anterior neck soft tissue infection, and C. difficile colitis. -C-diff colitis,resolved. -Acute respiratory failure requiring intubation and ventilatory support. Dr. Lambert is following in pulmonology consultation. -S/p tracheostomy on 05/29/18. -Acute kidney injury on chronic kidney disease. Started on HD this admission with recovery of renal function. Dr. Mckeon is following in nephrology consultation. -Anemia of chronic inflammation, stool for OB is negative, status post blood transfusion. Continue Epogen. -Metabolic acidosis, resolved. -Acute diastolic congestive heart failure. -Paroxysmal atrial fibrillation -COPD -Dysphagia with PEG. -G-tube mild malfunction, changed by GI Dr. Carolina is following in gastroenterology consultation. -Obesity -Critical care myopathy Further recommendations based on clinical course. Plan of care discussed with Dr. Eisenberg. Result Diagram: 08/11/1862508/11/18625 Exam/Review of Systems Exam Vitals Vital Signs Date Temp Pulse Resp B/P (MAP) Pulse Ox O2 O2 Flow FiO2 Time Delivery Rate 08/12/18 82 21 100 30 17:05 08/12/18 98.6 105/51 Mechanical 15:12 (69) Ventilator Intake and Output 08/11/18 08/11/18 08/12/18 1515:00 23:00 07:00 IntakeIntake Total 100 ml 130 ml 630 ml OutputOutput Total 250 ml 450 ml BalanceBalance 100 ml -120 ml 180 ml Exam Constitutional: lethargic Neck: other (Tracheostomy) Respiratory: diminished breath sounds Cardiovascular: regular rate and rhythm Gastrointestinal: soft, non-tender, distended, other (G-tube) Extremities: normal pulses Medications Medication Current Medications Clonidine (Catapres) 0.1 mg Q6H PRN PO ELEVATED BLOOD PRESSURE Last a dministered on 08/03/18at 20:27; Admin Dose 0.1 MG; Start 06/03/18 at 03:30 Bumetanide (Bumex) 1 mg BID DIURETICS GTB Last administered on 08/12/18 17:27; Admin Dose 1 MG; Start 06/11/18 at 18:00 Dicyclomine HCl (Bentyl) 20 mg Q8 PO Last administered on 08/12/18at 14:57; Admin Dose 20 MG; Start 06/27/18 at 22:00 Cholestyramine Resin (Questran Light) 4 gm 0600,1200,1800,2300 GTB Last administered on 08/12/18at 17:31; Admin Dose 4 GM; Start 06/27/18 at 18:00 Epoetin Zen-epbx (Retacrit (Non-Esrd)) 10,000 unit MoWeFr@1700 SC Last administered on 08/12/18 17:29; Admin Dose 10,000 UNIT; Start 07/13/18 at 17:00 Cefepime HCl 50 ml @ 100 mls/hr Q24H IVPB Last administered on 08/12/18 17:27; Admin Dose 100 MLS/HR; Start 07/14/18 at 18:30 Albuterol/ Ipratropium (Duoneb) 3 ml Q2H RESP THERAPY PRN HHN WHEEZING Last administered on 07/21/18 23:06; Admin Dose 3 ML; Start 07/21/18 at 22:00 Citric Acid/ Sodium Citrate (Bicitra) 60 ml DAILY PO Last administered on 08/12/18 09:05; Admin Dose 60 ML; Start 07/23/18 at 09:00 Levothyroxine Sodium (Synthroid) 75 mcg DAILY@06 GTB Last administered on 08/12/18 06:22; Admin Dose 75 MCG; Start 07/28/18 at 06:00 Nystatin (Nystatin Powder) 1 applic BID TOP Last administered on 08/12/18 09:06; Admin Dose 1 APPLIC; Start 07/28/18 at 17:30 IV Flush (NS 10 ml) 10 ml Q8 PRN IV IV PROTOCOL; Start 07/28/18 at 19:00 Lorazepam (Ativan) 0.5 mg Q4 PRN IV agitation; Start 08/02/18 at 15:00 Phenytoin (Dilantin) 250 mg Q12@0800,2000 IV Last administered on 08/12/18 09:05; Admin Dose 250 MG; Start 08/05/18 at 09:00 Amiodarone HCl (Cordarone) 200 mg DAILY GTB Last administered on 08/12/18 09:06; Admin Dose 200 MG; Start 08/07/18 at 09:00 Miscellaneous Information (*Order Clarification Bulletin) MEDICATION REQUIRES CLARIFICATI... Q8H XX Last administered on 08/10/18at 18:30; Admin Dose 1 EA; Start 08/08/18 at 18:30 Metoprolol Tartrate (Lopressor) 50 mg Q8 GTB ; Start 08/11/18 at 22:00 Miscellaneous Information (*Order Clarification Bulletin) MEDICATION REQUIRES CLARIFICATI... Q8H XX ; Start 08/12/18 at 17:30; Stop 08/14/18 at 23:00 GRISELDA DENNIS Aug 12, 2018 17:53
[2018-08-13] VITALS (19 sets, daily range): BP systolic 103–124; BP diastolic 56–67; PULSE 70–84; RESP 20–27
[2018-08-13] MEDS: [UNRECOGNIZED DRUG - REMARK] XX SCH ×2 (01:56→09:46)
[2018-08-13] MEDS: BUMETANIDE 1 MG TAB GTB SCH (06:29)
[2018-08-13] MEDS: DICYCLOMINE 10 MG CAP PO SCH ×3 (06:29→21:41)
[2018-08-13] MEDS: LEVOTHYROXINE 75 MCG TAB GTB SCH (06:29)
[2018-08-13] MEDS: CHOLESTYRAMINE (LIGHT) 4 GM PACKET GTB SCH ×4 (06:29→21:40)
[2018-08-13] MEDS: AMIODARONE 200 MG TAB GTB SCH (09:01)
[2018-08-13] MEDS: CITRIC ACID/NA CITRATE 30 ML CUP PO SCH (09:01)
[2018-08-13] MEDS: PHENYTOIN 100 MG INJ IV SCH ×2 (09:01→20:53)
--- NOTE | 2018-08-13 09:01 | PN ---
DATE: 08/13/2018 SUBJECTIVE: The patient remains confused, on ventilatory support. No other acute events noted. OBJECTIVE: VITAL SIGNS: Blood pressure is 115/60, respirations 27, pulse 78, temperature 97.9. HEENT: Head is normocephalic. NECK: Supple. HEART: Regular rate. LUNGS: Show diminished breath sounds at the base. ABDOMEN: Soft, nontender to palpation without rebound or guarding. EXTREMITIES: Negative for clubbing, cyanosis. Positive edema of lower extremities and upper extremi ties. DERMATOLOGIC: No rashes. MUSCULOSKELETAL: No joint effusion. NEUROLOGIC: No change in exam. MEDICATIONS: Reviewed. LABORATORY DATA: Reviewed. IMAGING STUDIES: Reviewed. ASSESSMENT AND PLAN: 1. Nonoliguric acute kidney injury with previous baseline creatinine of 2.0 mg/dL. Etiology of acut e kidney injury is secondary to acute tubular necrosis. Renal function is stabilized. Continue to m onitor renal function closely. 2. Volume overload. The patient's edema is noted to have worsened over the past 24-48 hours. We wi ll adjust diuretic therapy. We will change Bumex to IV 1 mg b.i.d. We will add metolazone to augmen t diuresis. Monitor renal function and electrolytes closely. 3. Hypokalemia and hypomagnesemia. Continue to monitor and replete. 4. Anemia. Monitor hemoglobin and hematocrit levels. Continue Epogen. 5. Mineral bone disorder. Continue to monitor calcium and phosphorus levels. 6. Ventilator-dependent respiratory failure. Vent settings have been reviewed. Continue to monitor . 7. Sepsis secondary to endocarditis. The patient is completing antibiotic course. 8. Dysphagia. Continue tube feeding. 9. Encephalopathy. Continue to monitor. 10. History of Clostridium difficile. 11. Lower extremity wounds. Continue wound care. Dictated By: JEANA BANSAL DO NR/NTS Conf#: [id number] DID#: [id number] CC: ROLAND GIRON MD; QUINTEN UMAÑA MD;*EndCC*
[2018-08-13] MEDS: METOPROLOL 50 MG TAB GTB SCH ×2 (09:02→20:53)
[2018-08-13] MEDS: NYSTATIN 30 GM POWDER BTL TOP SCH ×2 (09:02→20:53)
[2018-08-13] MEDS: BALSAM PERU/CASTOR OIL 60 GM TUBE TOP SCH ×2 (09:02→20:53)
[2018-08-13] MEDS ORDERED: METOLAZONE 5 MG TAB PO ONE (09:30)
--- NOTE | 2018-08-13 13:57 | RADRPT ---
Echocardiogram Report Patient Name: RHONDA LAWS JPatient ID: [id number] : 1945 (73y 7m)Study Date: 08/12/2018 1:29:40 PM Gender: FAccession #: [id number] Tech: RI Location: I Ref.Physician: DAYNA SCANLON Height(Cm): BSA: Weight(Kg): Quality: AdequateOrder Physician: DAYNA SCANLON Account #: Procedures: Echocardiographic Report: Transthoracic echocardiogram examination. Indications: Endocarditis. Findings: Left Ventricle: The left ventricular ejection fraction is visually estimated at 55-60 %. Mitral Valve: Mitral valve leaflet appear moderately thickened. Severe mitral annular calcification. Calcified Leaflets Mitral valve leaflet appear mildly clacified. Moderate mitral regurgitation. Echogenic structure is seen on the mitral valve, similiar in appearance to structure seen on echo 07/16/18. Differential includes but not limited to vegetation or calcification. Conclusions: The left ventricular ejection fraction is visually estimated at 55-60 %. Mitral valve leaflet appear moderately thickened. Severe mitral annular calcification. Calcified Leaflets Mitral valve leaflet appear mildly clacified. Moderate mitral regurgitation. Echogenic structure is seen on the mitral valve, similiar in appearance to structure seen on echo 07/16/18. Differential includes but not limited to vegetation or calcification. Electronically Signed By: Dayna Scanlon 2018-08-13 13:56:45 PDT
--- NOTE | 2018-08-13 14:02 | CONS ---
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 Request was made for repeat echocardiogram. This was performed yesterday, there is an echodense structure still on the mitral valve, differential includes calcification versus vegetation. There is no significant change compared to echocardiogram July 16, 2018. Even though vegetation is pos sibly present, if cultures are negative, it is possible that this is now a "sterile" vegetation. Would consider repeat blood cultures Antibiotics as per infectious disease Vent management as per pulmonary Fluid management and electrolytes as per renal No anticoagulation given recurrent anemia requiring blood transfusions Consultation Date/Type/Reason Admit Date/Time May 06, 2018 at 17:38 Initial Consult Date 05/10/18 Type of Consult Cardiology Requesting Provider: ROLAND GIRON MD Date/Time of Note DATE: 08/13/18 TIME: 13:57 24 HR Interval Summary Free Text/Dictation Patient seen and examined. Issues of bradycardia at times in discussion with nursing staff Exam/Review of Systems Vital Signs Vitals Vital Signs Date Temp Pulse Resp B/P (MAP) Pulse Ox O2 O2 Flow FiO2 Time Delivery Rate 08/13/18 82 26 100 30 13:15 08/13/18 98.0 107/60 Mechanical 11:23 (76) Ventilator Intake and Output 08/12/18 08/12/18 08/13/18 1515:00 23:00 07:00 OutputOutput Total 200 ml 450 ml BalanceBalance -200 ml -450 ml Exam Exam Sleeping, no apparent distress Head: normocephalic Neck: other (Tracheostomy) Respiratory: other (Coarse breath sounds bilaterally, no wheezing) Cardiovascular: regular rate and rhythm (S1-S2 heard), systolic murmur Gastrointestinal: soft, non-tender, bowel sounds Extremities: edema Labs Result Diagram: 08/13/18 0612 08/13/18 0612 Results 24hrs Laboratory Tests Test 08/13/18 06:12 White Blood Count 6.6 Red Blood Count 2.08 L Hemoglobin 7.0 L Hematocrit 23.7 L Mean Corpuscular Volume 113.9 H Mean Corpuscular Hemoglobin 33.7 H Mean Corpuscular Hemoglobin Concent 29.5 L Red Cell Distribution Width 24.9 H Platelet Count 199 Mean Platelet Volume 10.5 H Immature Granulocytes % 0.600 H Neutrophils % 72.9 Lymphocytes % 11.7 L Monocytes % 9.9 Eosinophils % 4.6 Basophils % 0.3 Nucleated Red Blood Cells % 0.3 H Immature Granulocytes # 0.040 H Neutrophils # 4.8 Lymphocytes # 0.8 Monocytes # 0.7 Eosinophils # 0.3 Basophils # 0.0 Nucleated Red Blood Cells # 0.0 Sodium Level 140 Potassium Level 3.5 Chloride Level 111 H Carbon Dioxide Level 16 L Anion Gap 13 Blood Urea Nitrogen 105 H Creatinine 3.00 H Est Glomerular Filtrat Rate mL/min Glucose Level 108 Calcium Level 9.8 Phosphorus Level 3.3 Magnesium Level 2.0 Medications Medications Current Medications Clonidine (Catapres) 0.1 mg Q6H PRN PO ELEVATED BLOOD PRESSURE Last administered on 08/03/18 20:27; Admin Dose 0.1 MG; Start 06/03/18 at 03:30 Dicyclomine HCl (Bentyl) 20 mg Q8 PO Last administered on 08/13/18 06:29; Admin Dose 20 MG; Start 06/27/18 at 22:00 Cholestyramine Resin (Questran Light) 4 gm 0600,1200,1800,2300 GTB Last admi nistered on 08/13/18 12:24; Admin Dose 4 GM; Start 06/27/18 at 18:00 Epoetin Zen-epbx (Retacrit (Non-Esrd)) 10,000 unit MoWeFr@1700 SC Last administered on 08/12/18 17:29; Admin Dose 10,000 UNIT; Start 07/13/18 at 17:00 Cefepime HCl 50 ml @ 100 mls/hr Q24H IVPB Last administered on 08/12/18 1 7:27; Admin Dose 100 MLS/HR; Start 07/14/18 at 18:30 Albuterol/ Ipratropium (Duoneb) 3 ml Q2H RESP THERAPY PRN HHN WHEEZING Last administered on 07/21/18 23:06; Admin Dose 3 ML; Start 07/21/18 at 22:00 Citric Acid/ Sodium Citrate (Bicitra) 60 ml DAILY PO Last administered on 08/13/18 09:01; Admin Dose 60 ML; Start 07/23/18 at 09:00 Levothyroxine Sodium (Synthroid) 75 mcg DAILY@06 GTB Last administered on 08/13/18 06:29; Admin Dose 75 MCG; Start 07/28/18 at 06:00 Nystatin (Nystatin Powder) 1 applic BID TOP Last administered on 08/13/18 09:02; Admin Dose 1 APPLIC; Start 07/28/18 at 17:30 IV Flush (NS 10 ml) 10 ml Q8 PRN IV IV PROTOCOL; Start 07/28/18 at 19:00 Lorazepam (Ativan) 0.5 mg Q4 PRN IV agitation; Start 08/02/18 at 15:00 Phenytoin (Dilantin) 250 mg Q12@0800,2000 IV Last administered on 08/13/18 09:01; Admin Dose 250 MG; Start 08/05/18 at 09:00 Amiodarone HCl (Cordarone) 200 mg DAILY GTB Last administered on 08/13/18 09:01; Admin Dose 200 MG; Start 08/07/18 at 09:00 Miscellaneous Information (*Order Clarification Bulletin) MEDICATION REQUIRES CLARIFICATI... Q8H XX ; Start 08/12/18 at 17:30; Stop 08/14/18 at 23:00 Metoprolol Tartrate (Lopressor) 50 mg BID GTB Last administered on 08/13/18 09:02; Admin Dose 50 MG; Start 08/12/18 at 21:00 Bumetanide (Bumex) 1 mg BID DIURETICS IV ; Start 08/13/18 at 18:00 Evangelista Scanlon DO Aug 13, 2018 14:02
--- NOTE | 2018-08-13 14:36 | CONS ---
Assessment/Plan Assessment/Plan Hospital Course (Demo Recall) # sepsis, leukocytosis, SIRS, pulmonary, cardiac - recurrent leukocytosis due to bacteremia (below), improved - s/p septic shock due to pneumonia and C diff colitis - acute on chronic hypoxic respiratory failure, persistent - s/p reintubation 05/12/2018 - s/p re-do trach on 05/29/2018 - recurrent colonization of the anterior neck wound with ESBL+kleb, MRSA, GBS, corynebacteria on 05/06/2018 - h/o pneumonia vs. colonization of the airway by pseudomonas and ESBL+klebsiella - h/o possible, recurrent HCAP due to pseudomonas and ESBL+klebsiella - h/o recurrent HCAP due to MRSA and Enterobacter (culture of tracheal aspirate on 07/16/2017 that was collected at [facility]) . Pt took vancomycin and ceftazidime - h/o decannulation prior to admission - h/o tracheostomy on 06/11/2017 - h/o SIRS from UGIB in 2018 - h/o thoracentesis on 07/18/2017, transudative (protein <2, LDH 279) - h/o bleeding from the trach site in 2018 - h/o septic shock due to pneumonia, ARDS, bacteremia, fungemia in 2018 - h/o ARDS in 2018 - h/o smoking - COPD - h/o ILD per medical record - h/o PAF, improved - echodense structure in posterior leafleat region, differential includes calcification vs vegetation per 2D echo 07/15/2018 # GI - s/p possible ileus or enterocolitis on CT abd/pel 06/15/2018-->follow up CT on 07/15/2018 showed no evidence of urolithiasis, obstructive uropathy or diverticulitis; it showed small to moderate ascites-->CT on 08/04/2018 showed colonic obstruction, mild to moderate ascites, diffuse gallbladder wall thickening - C diff colitis, diagnosed on 05/11/2018. Pt took pGT vancomycin (restart 019-08/10/2018), IV metronidazole (05/11/2018-05/29/2018; restart 05/30/2018- 06/05/18) - Pt had multiple negative C. diff tests at [facility] and at OSH in the past; none was positive until 05/11/2018 - dysphagia - h/o PEG placement 06/13/2018 - protein calorie malnutrition - h/o coffee ground emesis/UGIB on 12/23/2017 due to deep ulceration of distal esophagus and gastritis on EGD 12/26/2017. No e/o H. pylori - h/o possible appendicitis on CT on 11/22/2017, Pt took ertapenem (11/24/2017- 12/01/2017) - h/o extensive adhesions lower abdominal and pelvis between small bowel to each other and to colon and to abdominal wall, anterior pelvic wall chronic abscess secondary to probably an old perforated diverticulitis, torsion of small bowel around these dense adhesion causing multiple obstructive points - h/o laparoscopic exploration and extensive lysis of adhesions and drainage of anterior pelvic wall abscess 09/16/2017. Cultures were negative, no e/o malignancy. Pt took pip/tazo (09/16/2017-09/26/2017) - h/o EGD and exchange of PEG on 09/01/2017 - h/o partial obstruction mid jejunum in L anterior central pelvis with suggestion of a 3 cm soft tissue mass on CT 08/28/2017 - h/o internal stomal deep ulcer behind the internal bumper, gastritis and esophagitis, Rodriguez's cannot be ruled out, per EGD with biopsy 07/23/2017 - h/o GIB s/p flex sig showed polyp; stool OB negative on 06/29/17 - h/o stool OB positive status - h/o SBO and ileus due to pain meds - h/o mildly elevated CEA # renal/ - s/p recurrent UTI due to pseudomonas (culture on 07/09/2018)-->Garza catheter was replaced on 07/14/2018 - s/p UTI due to MDR, CRE-klebsiella on 06/15/2018. S/p renally dosed amikacin for klebsiella in her urine culture (06/17-06/22/2018) - s/p UTI due to pseudomonas and ESBL+klebsiella on 06/09/2018, Pt took one dose of fosfomycin on 06/10/2018 and cipro 06/12-06/15/2018 - anasarca - started on HD on 05/15/2018, via Juan in R groin - recurrent NATHAN on CKD - 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 Her strain of CRE was sensitive to colistin, Avycaz, and Vabomere but resistant to Zerbaxa (reported on 05/19/2018) - metabolic acidosis - adrenal insufficiency - h/o vaginal bleed in 2018 - h/o colonization of urinary tract by ESBL+klebsiella, VRE - h/o recurrent, symptomatic UTI due to carbapenem-resistant kleb (MDR strain) per urine culture 10/04/17, 10/09/17, 10/21/2017, P took colistin (10/09/2017- 10/15/2017), fosfomycin for carbapenemase-producing klebsiella and VRE on 10/25/2017 and 10/28/2017 - h/o funguria - h/o urinary retention # bloodstream infections, and infective endocarditis - infective endocarditis involving the mitral valve: TTE on 07/14/2018 showed echodense structure in posterior leafleat region. Pt took IV amikacin (07/09/2018-08/05/2018) and IV colistin (08/05/2018-08/11/2018). repat TTE on 08/12/2018 showed nearly no change - bacteremia d/t pseudomonas aeruginosa 07/09/18, 07/10/18, 07/11/18, 07/12/18, 07/13/18, 07/15/18, 07/17/18. This is associated with PICC because the blood culture from PICC and phlebotomy on 07/13/2018 both grew the same bacteria. The tip of PICC that was removed on 07/14/18 also grew the same bacteria in culture. - Some strains of pseudomonas she had were pansensitive while other strains of pseudomonas were resistant to many antibiotics (MDR). - Pt's strain of pseudomonas on 07/09/2018 was resistant to all except for aminoglycosides (amikacin, gentamicin, tobramycin), colistin (IRASEMA=1, reported to be susceptible) and ceftolozane/tazobactam, but resistant to ceftaz/avibactam - Pt's strain of pseudomonas on was resistant to all except for aminoglycosides (amikacin, gentamicin, tobramycin), colistin (IRASEMA=3, no interpretation) and ceftolozane/tazobactam, but resistant to ceftaz/avibactam 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; Pt declined surgery for MVR per outside medical records; TTE 07/01/17 did not ment ion any thrombus; s/p voriconazole (05/25/2017-08/01/2017) - h/o bacteremia due to MSSA and proteus s/p ceftriaxone; repeat blood cultures were negative on 06/14/2017 - s/p RUE PICC line placement 07/28/2018 # musculoskeletal and dermatological - dry skin - chronic wound of LLE - h/o infection of wound of LLE - h/o debridement of wound of LLE on 08/06/2017 - h/o recurrent herpes labialis, Pt took acyclovir, valacyclovir - h/o Osler's nodes (eschar) of R toes with erythematous skin; desquamation of the skin and open lacerations on R plantar foot. improved. Probable manifestation of endocarditis. Pt declined MRI on 08/06/2017 - h/o infection of R toes due to pseudomonas. coagulase negative Staph likely a colonizer - h/o intertrigo of the groin, resolved with nystatin powder - h/o scabies (proven by skin scraping), locally crusted lesion over L scapula, s/p permethrin cream and pGT ivermectin on 08/11/2017, 08/12/2017, 08/19/2017. Repeat skin scraping on 08/21/2017 was negative for scabies # psych, neuro - chronic toxic metabolic encephalopathy, progressing - MRI brain on 07/26/2018 showed no acute intracranial pathology - seizure activity per EEG 07/27/18 - on Dilantin - decreased hearing b/l - h/o critical illness polyneuropathy - anxiety/depression, bipolar d/o, seen by Psychiatry in the past - chronic pain syndrome - h/o medical non-compliance: she would refuse her medications, treatment and straight catheterization in 2018 - complete opacification of the bilateral mastoid air cells per MRI Brain on 07/26/2018 # hematological, vascular - chronic anemia requiring blood transfusion intermittently - macrocytic anemia - aneurysmal dilatation of the distal aorta visualized on CT 06/15/2018 - PVD # other - hypothyroidism with elevated TSH - on Synthroid recommendations: - repeat transthoracic echo by Dr. Scanlon is appreciated - ordered: two sets of blood cultures today - we recommend 6 weeks of antibiotic for probable endocarditis from the first day of negative blood culture, i.e. 07/18/2018 through 08/29/2018. She had MDR pseudomonas and her antibiotic options are limited. I stopped both IV amikacin (07/09/2018-08/05/2018) and IV colistin (08/05/2018-08/11/2018) for a concern of side effects, diminished hearing (amikacin) and nephrotoxicity and neuromuscular impact (colistin). - I ordered renally dosed ceftolozane and tazobactam management d/w Dr. Scanlon, PharmD [place] Consultation Date/Type/Reason Admit Date/Time May 06, 2018 at 17:38 Initial Consult Date 05/10/18 Type of Consult ID Requesting Provider: ROLAND GIRON MD Date/Time of Note DATE: 08/13/18 TIME: 14:28 24 HR Interval Summary Subjective hx not possible: pt non-verbal Exam/Review of Systems Exam Vitals Vital Signs Date Temp Pulse Resp B/P (MAP) Pulse Ox O2 O2 Flow FiO2 Time Delivery Rate 08/13/18 82 26 100 30 13:15 08/13/18 98.0 107/60 Mechanical 11:23 (76) Ventilator Intake and Output 08/12/18 08/12/18 08/13/18 1515:00 23:00 07:00 OutputOutput Total 200 ml 450 ml BalanceBalance -200 ml -450 ml Constitutional: non-verbal, frail Psych: confusion Head: normocephalic, atraumatic Eyes: nl conjunctiva, nl lids, nl sclera ENMT: nl external ears & nose, nl nasal mucosa & septum, mucosa pink and moist Neck: other (trach) Respiratory: diminished breath sounds Cardiovascular: regular rate and rhythm, nl pulses Gastrointestinal: soft, non-tender Musculoskeletal: nl extremities to inspection Extremities: edema Neurological: lethargic Skin: ecchymosis Results Result Diagram: 08/13/18 0612 08/13/18 0612 Results 24hrs Laboratory Tests Test 08/13/18 06:12 White Blood Count 6.6 Red Blood Count 2.08 L Hemoglobin 7.0 L Hematocrit 23.7 L Mean Corpuscular Volume 113.9 H Mean Corpuscular Hemoglobin 33.7 H Mean Corpuscular Hemoglobin Concent 29.5 L Red Cell Distribution Width 24.9 H Platelet Count 199 Mean Platelet Volume 10.5 H Immature Granulocytes % 0.600 H Neutrophils % 72.9 Lymphocytes % 11.7 L Monocytes % 9.9 Eosinophils % 4.6 Basophils % 0.3 Nucleated Red Blood Cells % 0.3 H Immature Granulocytes # 0.040 H Neutrophils # 4.8 Lymphocytes # 0.8 Monocytes # 0.7 Eosinophils # 0.3 Basophils # 0.0 Nucleated Red Blood Cells # 0.0 Sodium Level 140 Potassium Level 3.5 Chloride Level 111 H Carbon Dioxide Level 16 L Anion Gap 13 Blood Urea Nitrogen 105 H Creatinine 3.00 H Est Glomerular Filtrat Rate mL/min Glucose Level 108 Calcium Level 9.8 Phosphorus Level 3.3 Magnesium Level 2.0 Medications Medication Current Medications Clonidine (Catapres) 0.1 mg Q6H PRN PO ELEVATED BLOOD PRESSURE Last administered on 08/03/18 20:27; Admin Dose 0.1 MG; Start 06/03/18 at 03:30 Dicyclomine HCl (Bentyl) 20 mg Q8 PO Last administered on 08/13/18 06:29; Admin Dose 20 MG; Start 06/27/18 at 22:00 Cholestyramine Resin (Questran Light) 4 gm 0600,1200,1800,2300 GTB Last administered on 08/13/18 12:24; Admin Dose 4 GM; Start 06/27/18 at 18:00 Epoetin Zen-epbx (Retacrit (Non-Esrd)) 10,000 unit MoWeFr@1700 SC Last administered on 08/12/18 17:29; Admin Dose 10,000 UNIT; Start 07/13/18 at 17:00 Albuterol/ Ipratropium (Duoneb) 3 ml Q2H RESP THERAPY PRN HHN WHEEZING Last administered on 07/21/18 23:06; Admin Dose 3 ML; Start 07/21/18 at 22:00 Citric Acid/ Sodium Citrate (Bicitra) 60 ml DAILY PO Last administered on 08/13/18 09:01; Admin Dose 60 ML; Start 07/23/18 at 09:00 Levothyroxine Sodium (Synthroid) 75 mcg DAILY@06 GTB Last administered on 08/13/18at 06:29; Admin Dose 75 MCG; Start 07/28/18 at 06:00 Nystatin (Nystatin Powder) 1 applic BID TOP Last administered on 08/13/18at 09:02; Admin Dose 1 APPLIC; Start 07/28/18 at 17:30 IV Flush (NS 10 ml) 10 ml Q8 PRN IV IV PROTOCOL; Start 07/28/18 at 19:00 Lorazepam (Ativan) 0.5 mg Q4 PRN IV agitation; Start 08/02/18 at 15:00 Phenytoin (Dilantin) 250 mg Q12@0800,2000 IV Last administered on 08/13/18at 09:01; Admin Dose 250 MG; Start 08/05/18 at 09:00 Amiodarone HCl (Cordarone) 200 mg DAILY GTB Last administered on 08/13/18at 09:01; Admin Dose 200 MG; Start 08/07/18 at 09:00 Miscellaneous Information (*Order Clarification Bulletin) MEDICATION REQUIRES CLARIFICATI... Q8H XX ; Start 08/12/18 at 17:30; Stop 08/14/18 at 23:00 Metoprolol Tartrate (Lopressor) 50 mg BID GTB Last administered on 08/13/18at 09:02; Admin Dose 50 MG; Start 08/12/18 at 21:00 Bumetanide (Bumex) 1 mg BID DIURETICS IV ; Start 08/13/18 at 18:00 CELESTINE MURPHY M.D. Aug 13, 2018 14:36
[2018-08-13] MEDS: BUMETANIDE 1 MG INJ IV SCH (17:19)
--- NOTE | 2018-08-13 17:23 | PN ---
Date/Time of Note Date/Time of Note DATE: 08/13/18 TIME: 17:19 Assessment/Plan VTE Prophylaxis Risk score (from [facility])>0 risk: 10 SCD applied (from [facility]): Yes Pharmacological prophylaxis: NA/contraindicated Pharm contraindication: anticoag not tolerated Lines/Catheters IV Catheter Type (from [facility]): PICC Line Central line still needed: Yes Urinary Cath still in place: Yes Reason Cath still needed: urinary retention Assessment/Plan Hospital Course [facility] after cleared by in fectious disease and cardiology. Discussed with Dr. Scanlon, 2D echo is done, pending reading to rule out endocarditis. Patient with episodes of bradycardia and yesterday and short pause today, beta-tin is being titrated down by cardiology. Assessment/Plan -Possible acute metabolic encephalopathy. Dr. Mathew is following in neurology consultation. -Seizures, continue Dilantin -Persistent leukocytosis with Pseudomonas bacteremia 2 to PICC line infection, continue antibiotics per ID. Dr. Doyle is following in infection disease consultation. 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 TTE 07/16/18 with notion of echodense structure on the mitral valve, calcification vs vegetation. Dr. Scanlon is following in cardiology consultation. -Hypothyroidism, continue levothyroxine. -MDR Klebsiella urinary tract infection, completed treatment with amikacin. -Atrial fibrillation was rapid ventricular response, patient remains in sinus rhythm continue metoprolol and amiodarone. -S/p septic shock secondary to urinary tract infection, anterior neck soft t issue infection, and C. difficile colitis. -C-diff colitis,resolved. -Acute respiratory failure requiring intubation and ventilatory support. Dr. Lambert is following in pulmonology consultation. -S/p tracheostomy on 05/29/18. -Acute kidney injury on chronic kidney disease. Started on HD this admission with recovery of renal function. Dr. Mckeon is following in nephrology consultation. -Anemia of chronic inflammation, stool for OB is negative, status post blood transfusion. Continue Epogen. -Metabolic acidosis, resolved. -Acute diastolic congestive heart failure. -Paroxysmal atrial fibrillation -COPD -Dysphagia with PEG. -G-tube mild malfunction, changed by GI Dr. Carolina is following in gastroenterology consultation. -Obesity -Critical care myopathy Further recommendations based on clinical course. Plan of care discussed with Dr. Eisenberg. Result Diagram: 08/13/18 0612 08/13/18 0612 Results 24hrs Laboratory Tests Test 08/13/18 06:12 White Blood Count 6.6 Red Blood Count 2.08 L Hemoglobin 7.0 L Hematocrit 23.7 L Mean Corpuscular Volume 113.9 H Mean Corpuscular Hemoglobin 33.7 H Mean Corpuscular Hemoglobin Concent 29.5 L Red Cell Distribution Width 24.9 H Platelet Count 199 Mean Platelet Volume 10.5 H Immature Granulocytes % 0.600 H Neutrophils % 72.9 Lymphocytes % 11.7 L Monocytes % 9.9 Eosinophils % 4.6 Basophils % 0.3 Nucleated Red Blood Cells % 0.3 H Immature Granulocytes # 0.040 H Neutrophils # 4.8 Lymphocytes # 0.8 Monocytes # 0.7 Eosinophils # 0.3 Basophils # 0.0 Nucleated Red Blood Cells # 0.0 Sodium Level 140 Potassium Level 3.5 Chloride Level 111 H Carbon Dioxide Level 16 L Anion Gap 13 Blood Urea Nitrogen 105 H Creatinine 3.00 H Est Glomerular Filtrat Rate mL/min Glucose Level 108 Calcium Level 9.8 Phosphorus Level 3.3 Magnesium Level 2.0 Exam/Review of Systems Exam Vitals Vital Signs Date Temp Pulse Resp B/P (MAP) Pulse Ox O2 O2 Flow FiO2 Time Delivery Rate 08/13/18 98.0 80 23 119/56 100 Mechanical 15:52 (77) Ventilator 08/13/18 30 13:15 Intake and Output 08/12/18 08/12/18 08/13/18 1515:00 23:00 07:00 OutputOutput Total 200 ml 450 ml BalanceBalance -200 ml -450 ml Exam Constitutional: lethargic Neck: other (Tracheostomy) Respiratory: diminished breath sounds Cardiovascular: regular rate and rhythm Gastrointestinal: soft, non-tender, distended, other (G-tube) Extremities: normal pulses Results Results 24hrs Laboratory Tests Test 08/13/18 06:12 White Blood Count 6.6 Red Blood Count 2.08 L Hemoglobin 7.0 L Hematocrit 23.7 L Mean Corpuscular Volume 113.9 H Mean Corpuscular Hemoglobin 33.7 H Mean Corpuscular Hemoglobin Concent 29.5 L Red Cell Distribution Width 24.9 H Platelet Count 199 Mean Platelet Volume 10.5 H Immature Granulocytes % 0.600 H Neutrophils % 72.9 Lymphocytes % 11.7 L Monocytes % 9.9 Eosinophils % 4.6 Basophils % 0.3 Nucleated Red Blood Cells % 0.3 H Immature Granulocytes # 0.040 H Neutrophils # 4.8 Lymphocytes # 0.8 Monocytes # 0.7 Eosinophils # 0.3 Basophils # 0.0 Nucleated Red Blood Cells # 0.0 Sodium Level 140 Potassium Level 3.5 Chloride Level 111 H Carbon Dioxide Level 16 L Anion Gap 13 Blood Urea Nitrogen 105 H Creatinine 3.00 H Est Glomerular Filtrat Rate mL/min Glucose Level 108 Calcium Level 9.8 Phosphorus Level 3.3 Magnesium Level 2.0 Medications Medication Current Medications Clonidine (Catapres) 0.1 mg Q6H PRN PO ELEVATED BLOOD PRESSURE Last administered on 08/03/18 20:27; Admin Dose 0.1 MG; Start 06/03/18 at 03:30 Dicyclomine HCl (Bentyl) 20 mg Q8 PO Last administered on 08/13/18 14:58; Admin Dose 20 MG; Start 06/27/18 at 22:00 Cholestyramine Resin (Questran Light) 4 gm 0600,1200,1800,2300 GTB Last administered on 08/13/18 12:24; Admin Dose 4 GM; Start 06/27/18 at 18:00 Epoetin Zen-epbx (Retacrit (Non-Esrd)) 10,000 unit MoWeFr@1700 SC Last administered on 08/12/18 17:29; Admin Dose 10,000 UNIT; Start 07/13/18 at 17:00 Albuterol/ Ipratropium (Duoneb) 3 ml Q2H RESP THERAPY PRN HHN WHEEZING Last administered on 07/21/18 23:06; Admin Dose 3 ML; Start 07/21/18 at 22:00 Citric Acid/ Sodium Citrate (Bicitra) 60 ml DAILY PO Last administered on 08/13/18 09:01; Admin Dose 60 ML; Start 07/23/18 at 09:00 Levothyroxine Sodium (Synthroid) 75 mcg DAILY@06 GTB Last administered on 08/13/18 06:29; Admin Dose 75 MCG; Start 07/28/18 at 06:00 Nystatin (Nystatin Powder) 1 applic BID TOP Last administered on 08/13/18 09:02; Admin Dose 1 APPLIC; Start 07/28/18 at 17:30 IV Flush (NS 10 ml) 10 ml Q8 PRN IV IV PROTOCOL; Start 07/28/18 at 19:00 Lorazepam (Ativan) 0.5 mg Q4 PRN IV agitation; Start 08/02/18 at 15:00 Phenytoin (Dilantin) 250 mg Q12@0800,2000 IV Last administered on 08/13/18at 09:01; Admin Dose 250 MG; Start 08/05/18 at 09:00 Amiodarone HCl (Cordarone) 200 mg DAILY GTB Last administered on 08/13/18at 09:01; Admin Dose 200 MG; Start 08/07/18 at 09:00 Metoprolol Tartrate (Lopressor) 50 mg BID GTB Last administered on 08/13/18at 09:02; Admin Dose 50 MG; Start 08/12/18 at 21:00 Bumetanide (Bumex) 1 mg BID DIURETICS IV ; Start 08/13/18 at 18:00 Ceftolozane/ Tazobactam 0.375 gm/Sodium Chloride 100 ml @ 100 mls/hr Q8 IVPB ; Start 08/13/18 at 22:00; Stop 08/29/18 at 21:59 GRISELDA DENNIS Aug 13, 2018 17:23
[2018-08-13] MEDS: TAZOBACTAM IVPB SCH (21:41)
[2018-08-13] MEDS: SOD CHLORIDE 0.9% IVPB SCH (21:41)
[2018-08-13] MEDS: CEFTOLOZANE IVPB SCH (21:41)
[2018-08-14] VITALS (17 sets, daily range): BP systolic 90–104; BP diastolic 44–63; PULSE 71–79; RESP 16–29
[2018-08-14] MEDS: TAZOBACTAM IVPB SCH ×3 (05:30→21:46)
[2018-08-14] MEDS: CEFTOLOZANE IVPB SCH ×3 (05:30→21:46)
[2018-08-14] MEDS: SOD CHLORIDE 0.9% IVPB SCH ×3 (05:30→21:46)
[2018-08-14] MEDS: LEVOTHYROXINE 75 MCG TAB GTB SCH (05:31)
[2018-08-14] MEDS: CHOLESTYRAMINE (LIGHT) 4 GM PACKET GTB SCH ×4 (05:31→22:40)
[2018-08-14] MEDS: BUMETANIDE 1 MG INJ IV SCH ×2 (05:45→18:04)
[2018-08-14] MEDS: DICYCLOMINE 10 MG CAP PO SCH ×3 (05:45→21:46)
--- NOTE | 2018-08-14 08:40 | PN ---
DATE: 08/14/2018 SUBJECTIVE: The patient is confused. Urinary output has been marginal. No other events noted. OBJECTIVE: VITAL SIGNS: Blood pressure is 94/44, respirations 24, pulse 79, temperature 97.4. HEENT: Head is normocephalic. NECK: Supple. HEART: Regular rate. LUNGS: Show diminished breath sounds at the base. ABDOMEN: Soft, nontender to palpation without rebound or guarding. EXTREMITIES: Negative for clubbing, cyanosis. Positive for diffuse anasarca. DERMATOLOGIC: No rashes. MUSCULOSKELETAL: No joint effusion. NEUROLOGIC: No change in exam. MEDICATIONS: The patient's medications have been reviewed. LABORATORY DATA: Reviewed. IMAGING STUDIES: Reviewed. ASSESSMENT AND PLAN: 1. Nonoliguric acute kidney injury with previous baseline creatinine of 2.0 mg/dL. Etiology of acut e kidney injury was initially secondary to acute tubular necrosis. The patient had a 2-week course o f dialysis. The patient had renal recovery. However, renal function now declined in the past severa l days. This may be due to cardiorenal syndrome. The patient's diuretics were adjusted. Bumex was converted to IV. Metolazone was given. The patient remains grossly volume overloaded. Plan is to c ontinue current diuretic regimen. We will follow up chest x-ray. Monitor urinary output closely, wh ich has been declining. If renal function should further decline, the patient may require to be rein itiated on dialysis. 2. Volume overload. The patient is grossly edematous on exam. We will follow up chest x-ray. Cont inue diuretic therapy, may consider a Bumex drip. As stated above, the patient cannot adequately diu rese, may require ultrafiltration and dialysis. 3. Hypokalemia and hypomagnesemia. Continue to monitor and replete. 4. Anemia. Monitor hemoglobin and hematocrit levels. 5. Mineral bone disorder. Monitor calcium and phosphorus levels. 6. Sepsis. Repeat 2D echo, continues to show vegetation. Unclear if this is stereo. Repeat cultur es are pending. The patient remains on antibiotic therapy. 7. Dysphagia. Continue tube feeding. 8. Encephalopathy. Continue to monitor. 9. Clostridium difficile. 10. Lower extremity wounds. Continue wound care. Dictated By: JEANA FINE/TABATHA Conf#: [id number] DID#: [id number] CC: ROLAND GIRON MD; QUINTEN UMAÑA MD;*[facility]*
[2018-08-14] MEDS: METOPROLOL 50 MG TAB GTB SCH (09:00)
[2018-08-14] MEDS: AMIODARONE 200 MG TAB GTB SCH (09:38)
[2018-08-14] MEDS: CITRIC ACID/NA CITRATE 30 ML CUP PO SCH (09:38)
[2018-08-14] MEDS: NYSTATIN 30 GM POWDER BTL TOP SCH ×2 (09:42→21:50)
[2018-08-14] MEDS: PHENYTOIN 100 MG INJ IV SCH ×2 (09:42→21:46)
[2018-08-14] MEDS: BALSAM PERU/CASTOR OIL 60 GM TUBE TOP SCH ×2 (09:42→21:50)
--- NOTE | 2018-08-14 10:07 | PN ---
Date/Time of Note Date/Time of Note DATE: 08/14/18 TIME: 10:07 Assessment/Plan VTE Prophylaxis Risk score (from [facility])>0 risk: 6 SCD applied (from [facility]): No Lines/Catheters IV Catheter Type (from [facility]): PICC Line Central line still needed: Yes Urinary Cath still in place: Yes Reason Cath still needed: urinary retention Assessment/Plan Assessment/Plan -Possible acute metabolic encephalopathy. Dr. Mathew is following in neurology consultation. -Seizures, continue Dilantin -Persistent leukocytosis with Pseudomonas bacteremia 2 to PICC line infection, continue antibiotics per ID. Dr. Doyle is following in infection disease consultation. 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 TTE 07/16/18 with notion of echodense structure on the mitral valve, calcification vs vegetation. Dr. Scanlno is following in cardiology consultation. -Hypothyroidism, continue levothyroxine. -MDR Klebsiella urinary tract infection, completed treatment with amikacin. -Atrial fibrillation was rapid ventricular response, patient remains in sinus rhythm continue metoprolol and amiodarone. -S/p septic shock secondary to urinary tract infection, anterior neck soft tissue infection, and C. difficile colitis. -C-diff colitis,resolved. -Acute respiratory failure requiring intubation and ventilatory support. Dr. Lambert is following in pulmonology consultation. -S/p tracheostomy on 05/29/18. -Acute kidney injury on chronic kidney disease. Started on HD this admission with recovery of renal function. Dr. Mckeon is following in nephrology consultation. -Anemia of chronic inflammation, stool for OB is negative, status post blood transfusion. Continue Epogen. -Metabolic acidosis, resolved. -Acute diastolic congestive heart failure. -Paroxysmal atrial fibrillation -COPD -Dysphagia with PEG. -G-tube mild malfunction, changed by GI Dr. Carolina is following in gastroenterology consultation. -Obesity -Critical care myopathy Further recommendations based on clinical course. Plan of care discussed with Dr. Eisenberg. Result Diagram: 08/14/18 0753 08/14/18 0753 Results 24hrs Laboratory Tests Test 08/14/18 07:53 White Blood Count 5.4 Red Blood Count 2.50 #L Hemoglobin 8.4 L Hematocrit 27.9 L Mean Corpuscular Volume 111.6 H Mean Corpuscular Hemoglobin 33.6 H Mean Corpuscular Hemoglobin Concent 30.1 L Red Cell Distribution Width 24.3 H Platelet Count 196 Mean Platelet Volume 10.8 H Immature Granulocytes % 0.400 Neutrophils % 73.6 Lymphocytes % 12.3 L Monocytes % 8.9 Eosinophils % 4.6 Basophils % 0.2 Nucleated Red Blood Cells % 0.4 H Immature Granulocytes # 0.020 Neutrophils # 4.0 Lymphocytes # 0.7 L Monocytes # 0.5 Eosinophils # 0.3 Basophils # 0.0 Nucleated Red Blood Cells # 0.0 Sodium Level 141 Potassium Level 3.4 L Chloride Level 111 H Carbon Dioxide Level 16 L Anion Gap 14 H Blood Urea Nitrogen 111 H Creatinine 3.24 H Est Glomerular Filtrat Rate mL/min Glucose Level 132 Calcium Level 9.9 Phosphorus Level 3.4 Magnesium Level 2.0 Exam/Review of Systems Exam Vitals Vital Signs Date Temp Pulse Resp B/P (MAP) Pulse Ox O2 O2 Flow FiO2 Time Delivery Rate 08/14/18 80 21 100 30 09:24 08/14/18 97.4 94/44 (61) Mechanical 07:37 Ventilator Intake and Output 08/13/18 08/13/18 08/14/18 1515:00 23:00 07:00 IntakeIntake Total 680 ml OutputOutput Total 350 ml 100 ml BalanceBalance -350 ml 580 ml Constitutional: non-verbal, frail Results Results 24hrs Laboratory Tests Test 08/14/18 07:53 White Blood Count 5.4 Red Blood Count 2.50 #L Hemoglobin 8.4 L Hematocrit 27.9 L Mean Corpuscular Volume 111.6 H Mean Corpuscular Hemoglobin 33.6 H Mean Corpuscular Hemoglobin Concent 30.1 L Red Cell Distribution Width 24.3 H Platelet Count 196 Mean Platelet Volume 10.8 H Immature Granulocytes % 0.400 Neutrophils % 73.6 Lymphocytes % 12.3 L Monocytes % 8.9 Eosinophils % 4.6 Basophils % 0.2 Nucleated Red Blood Cells % 0.4 H Immature Granulocytes # 0.020 Neutrophils # 4.0 Lymphocytes # 0.7 L Monocytes # 0.5 Eosinophils # 0.3 Basophils # 0.0 Nucleated Red Blood Cells # 0.0 Sodium Level 141 Potassium Level 3.4 L Chloride Level 111 H Carbon Dioxide Level 16 L Anion Gap 14 H Blood Urea Nitrogen 111 H Creatinine 3.24 H Est Glomerular Filtrat Rate mL/min Glucose Level 132 Calcium Level 9.9 Phosphorus Level 3.4 Magnesium Level 2.0 Medications Medication Current Medications Clonidine (Catapres) 0.1 mg Q6H PRN PO ELEVATED BLOOD PRESSURE Last administered on 08/03/18 20:27; Admin Dose 0.1 MG; Start 06/03/18 at 03:30 Dicyclomine HCl (Bentyl) 20 mg Q8 PO Last administered on 08/14/18 05:45; Admin Dose 20 MG; Start 06/27/18 at 22:00 Cholestyramine Resin (Questran Light) 4 gm 0600,1200,1800,2300 GTB Last administered on 08/14/18 05:31; Admin Dose 4 GM; Start 06/27/18 at 18:00 Epoetin Zen-epbx (Retacrit (Non-Esrd)) 10,000 unit MoWeFr@1700 SC Last administered on 08/12/18 17:29; Admin Dose 10,000 UNIT; Start 07/13/18 at 17:00 Albuterol/ Ipratropium (Duoneb) 3 ml Q2H RESP THERAPY PRN HHN WHEEZING Last administered on 07/21/18 23:06; Admin Dose 3 ML; Start 07/21/18 at 22:00 Citric Acid/ Sodium Citrate (Bicitra) 60 ml DAILY PO Last administered on 08/14/18 09:38; Admin Dose 60 ML; Start 07/23/18 at 09:00 Levothyroxine Sodium (Synthroid) 75 mcg DAILY@06 GTB Last administered on 08/14/18 05:31; Admin Dose 75 MCG; Start 07/28/18 at 06:00 Nystatin (Nystatin Powder) 1 applic BID TOP Last administered on 08/14/18 09:42; Admin Dose 1 APPLIC; Start 07/28/18 at 17:30 IV Flush (NS 10 ml) 10 ml Q8 PRN IV IV PROTOCOL; Start 07/28/18 at 19:00 Lorazepam (Ativan) 0.5 mg Q4 PRN IV agitation; Start 08/02/18 at 15:00 Phenytoin (Dilantin) 250 mg Q12@0800,2000 IV Last administered on 08/14/18 09:42; Admin Dose 250 MG; Start 08/05/18 at 09:00 Amiodarone HCl (Cordarone) 200 mg DAILY GTB Last administered on 08/14/18at 09:38; Admin Dose 200 MG; Start 08/07/18 at 09:00 Metoprolol Tartrate (Lopressor) 50 mg BID GTB Last administered on 08/13/18at 09:02; Admin Dose 50 MG; Start 08/12/18 at 21:00 Bumetanide (Bumex) 1 mg BID DIURETICS IV Last administered on 08/14/18at 05:45; Admin Dose 1 MG; Start 08/13/18 at 18:00 Ceftolozane/ Tazobactam 0.375 gm/Sodium Chloride 100 ml @ 100 mls/hr Q8 IVPB Last administered on 08/14/18at 05:30; Admin Dose 100 MLS/HR; Start 08/13/18 at 22:00; Stop 08/29/18 at 21:59 KERON MORAN Aug 14, 2018 10:07
[2018-08-14] MEDS ORDERED: POTASSIUM CHLORIDE 100 ML IVPB ONE (10:30)
--- NOTE | 2018-08-14 12:34 | CONS ---
Assessment/Plan Assessment/Plan Hospital Course (Demo Recall) Sepsis Acute respiratory failure status post intubation and repeat tracheostomy Acute blood loss anemia History of respiratory failure status post decannulation Preserved ejection fraction echocardiogram 05/10/2018 Paroxysmal atrial fibrillation Acute kidney injury Presumed mitral valve endocarditis Given blood pressure on the lower side, would decrease dose of Lopressor 25 mg every 8 hours with holding parameters Discussion with infectious disease, patient with issues of antibiotic intole joyce. Request was made for repeat echocardiogram. This was performed on 08/12/2018, there is an echodense structure still on the mitral valve, differential includes calcification versus vegetation. There is no significant change compared to echocardiogram July 16, 2018. Even though vegetation is possibly present, if cultures are negative, it is possible that this is now a "sterile" vegetation. Repeat cultures were ordered on 08/13/2018 Antibiotics as per infectious disease Vent management as per pulmonary Fluid management and electrolytes as per renal No anticoagulation given recurrent anemia requiring blood transfusions Consultation Date/Type/Reason Admit Date/Time May 06, 2018 at 17:38 Initial Consult Date 05/10/18 Type of Consult Cardiology Requesting Provider: ROLAND GIRON MD Date/Time of Note DATE: 08/14/18 TIME: 12:32 24 HR Interval Summary Free Text/Dictation Patient seen and examined. Discussed with nursing staff, beta-tin held this morning because of blood pressure on the lower side Exam/Review of Systems Vital Signs Vitals Vital Signs Date Temp Pulse Resp B/P (MAP) Pulse Ox O2 O2 Flow FiO2 Time Delivery Rate 08/14/18 98.0 79 22 95/63 (74) 100 Mechanical 11:27 Ventilator 08/14/18 30 09:24 Intake and Output 08/13/18 08/13/18 08/14/18 1515:00 23:00 07:00 IntakeIntake Total 680 ml OutputOutput Total 350 ml 100 ml BalanceBalance -350 ml 580 ml Exam Exam Sleeping, no apparent distress Head: normocephalic Neck: other (Tracheostomy) Respiratory: other (Coarse breath sounds bilaterally, no wheezing) Cardiovascular: regular rate and rhythm (S1-S2 heard), systolic murmur Gastrointestinal: soft, non-tender, bowel sounds Extremities: edema Labs Result Diagram: 08/14/18 0753 08/14/18 0753 Results 24hrs Laboratory Tests Test 08/14/18 07:53 White Blood Count 5.4 Red Blood Count 2.50 #L Hemoglobin 8.4 L Hematocrit 27.9 L Mean Corpuscular Volume 111.6 H Mean Corpuscular Hemoglobin 33.6 H Mean Corpuscular Hemoglobin Concent 30.1 L Red Cell Distribution Width 24.3 H Platelet Count 196 Mean Platelet Volume 10.8 H Immature Granulocytes % 0.400 Neutrophils % 73.6 Lymphocytes % 12.3 L Monocytes % 8.9 Eosinophils % 4.6 Basophils % 0.2 Nucleated Red Blood Cells % 0.4 H Immature Granulocytes # 0.020 Neutrophils # 4.0 Lymphocytes # 0.7 L Monocytes # 0.5 Eosinophils # 0.3 Basophils # 0.0 Nucleated Red Blood Cells # 0.0 Sodium Level 141 Potassium Level 3.4 L Chloride Level 111 H Carbon Dioxide Level 16 L Anion Gap 14 H Blood Urea Nitrogen 111 H Creatinine 3.24 H Est Glomerular Filtrat Rate mL/min Glucose Level 132 Calcium Level 9.9 Phosphorus Level 3.4 Magnesium Level 2.0 Medications Medications Current Medications Clonidine (Catapres) 0.1 mg Q6H PRN PO ELEVATED BLOOD PRESSURE Last administered on 08/03/18 20:27; Admin Dose 0.1 MG; Start 06/03/18 at 03:30 Dicyclomine HCl (Bentyl) 20 mg Q8 PO Last administered on 08/14/18 05:45; Admin Dose 20 MG; Start 06/27/18 at 22:00 Cholestyramine Resin (Questran Light) 4 gm 0600,1200,1800,2300 GTB Last administered on 08/14/18 05:31; Admin Dose 4 GM; Start 06/27/18 at 18:00 Epoetin Zen-epbx (Retacrit (Non-Esrd)) 10,000 unit MoWeFr@1700 SC Last administered on 08/12/18 17:29; Admin Dose 10,000 UNIT; Start 07/13/18 at 17:00 Albuterol/ Ipratropium (Duoneb) 3 ml Q2H RESP THERAPY PRN HHN WHEEZING Last administered on 07/21/18 23:06; Admin Dose 3 ML; Start 07/21/18 at 22:00 Citric Acid/ Sodium Citrate (Bicitra) 60 ml DAILY PO Last administered on 08/14/18 09:38; Admin Dose 60 ML; Start 07/23/18 at 09:00 Levothyroxine Sodium (Synthroid) 75 mcg DAILY@06 GTB Last administered on 08/14/18 05:31; Admin Dose 75 MCG; Start 07/28/18 at 06:00 Nystatin (Nystatin Powder) 1 applic BID TOP Last administered on 08/14/18 09:42; Admin Dose 1 APPLIC; Start 07/28/18 at 17:30 IV Flush (NS 10 ml) 10 ml Q8 PRN IV IV PROTOCOL; Start 07/28/18 at 19:00 Lorazepam (Ativan) 0.5 mg Q4 PRN IV agitation; Start 08/02/18 at 15:00 Phenytoin (Dilantin) 250 mg Q12@0800,2000 IV Last administered on 08/14/18 09:42; Admin Dose 250 MG; Start 08/05/18 at 09:00 Amiodarone HCl (Cordarone) 200 mg DAILY GTB Last administered on 08/14/18 09:38; Admin Dose 200 MG; Start 08/07/18 at 09:00 Metoprolol Tartrate (Lopressor) 50 mg BID GTB Last administered on 08/13/18 09:02; Admin Dose 50 MG; Start 08/12/18 at 21:00 Bumetanide (Bumex) 1 mg BID DIURETICS IV Last administered on 08/14/18 05:45; Admin Dose 1 MG; Start 08/13/18 at 18:00 Ceftolozane/ Tazobactam 0.375 gm/Sodium Chloride 100 ml @ 100 mls/hr Q8 IVPB Last administered on 08/14/18 05:30; Admin Dose 100 MLS/HR; Start 08/13/18 at 22:00; Stop 08/29/18 at 21:59 Evangelista Scanlon DO Aug 14, 2018 12:34
--- NOTE | 2018-08-14 13:02 | CONS ---
Assessment/Plan Assessment/Plan Hospital Course (Demo Recall) # sepsis, leukocytosis, SIRS, pulmonary, cardiac - recurrent leukocytosis due to bacteremia (below), improved - s/p septic shock due to pneumonia and C diff colitis - acute on chronic hypoxic respiratory failure, persistent - s/p reintubation 05/12/2018 - s/p re-do trach on 05/29/2018 - recurrent colonization of the anterior neck wound with ESBL+kleb, MRSA, GBS, corynebacteria on 05/06/2018 - h/o pneumonia vs. colonization of the airway by pseudomonas and ESBL+klebsiella - h/o possible, recurrent HCAP due to pseudomonas and ESBL+klebsiella - h/o recurrent HCAP due to MRSA and Enterobacter (culture of tracheal aspirate on 07/16/2017 that was collected at [facility]) . Pt took vancomycin and ceftazidime - h/o decannulation prior to admission - h/o tracheostomy on 06/11/2017 - h/o SIRS from UGIB in 2018 - h/o thoracentesis on 07/18/2017, transudative (protein <2, LDH 279) - h/o bleeding from the trach site in 2018 - h/o septic shock due to pneumonia, ARDS, bacteremia, fungemia in 2018 - h/o ARDS in 2018 - h/o smoking - COPD - h/o ILD per medical record - h/o PAF, improved - echodense structure in posterior leafleat region, differential includes calcification vs vegetation per 2D echo 07/15/2018 # GI - s/p possible ileus or enterocolitis on CT abd/pel 06/15/2018-->follow up CT on 07/15/2018 showed no evidence of urolithiasis, obstructive uropathy or diverticulitis; it showed small to moderate ascites-->CT on 08/04/2018 showed colonic obstruction, mild to moderate ascites, diffuse gallbladder wall thickening - C diff colitis, diagnosed on 05/11/2018. Pt took pGT vancomycin (restart 019-08/10/2018), IV metronidazole (05/11/2018-05/29/2018; restart 05/30/2018- 06/05/18) - Pt had multiple negative C. diff tests at [facility] and at OSH in the past; none was positive until 05/11/2018 - dysphagia - h/o PEG placement 06/13/2018 - protein calorie malnutrition - h/o coffee ground emesis/UGIB on 12/23/2017 due to deep ulceration of distal esophagus and gastritis on EGD 12/26/2017. No e/o H. pylori - h/o possible appendicitis on CT on 11/22/2017, Pt took ertapenem (11/24/2017- 12/01/2017) - h/o extensive adhesions lower abdominal and pelvis between small bowel to each other and to colon and to abdominal wall, anterior pelvic wall chronic abscess secondary to probably an old perforated diverticulitis, torsion of small bowel around these dense adhesion causing multiple obstructive points - h/o laparoscopic exploration and extensive lysis of adhesions and drainage of anterior pelvic wall abscess 09/16/2017. Cultures were negative, no e/o malignancy. Pt took pip/tazo (09/16/2017-09/26/2017) - h/o EGD and exchange of PEG on 09/01/2017 - h/o partial obstruction mid jejunum in L anterior central pelvis with suggestion of a 3 cm soft tissue mass on CT 08/28/2017 - h/o internal stomal deep ulcer behind the internal bumper, gastritis and esophagitis, Rodriguez's cannot be ruled out, per EGD with biopsy 07/23/2017 - h/o GIB s/p flex sig showed polyp; stool OB negative on 06/29/17 - h/o stool OB positive status - h/o SBO and ileus due to pain meds - h/o mildly elevated CEA # renal/ - s/p recurrent UTI due to pseudomonas (culture on 07/09/2018)-->Garza catheter was replaced on 07/14/2018 - s/p UTI due to MDR, CRE-klebsiella on 06/15/2018. S/p renally dosed amikacin for klebsiella in her urine culture (06/17-06/22/2018) - s/p UTI due to pseudomonas and ESBL+klebsiella on 06/09/2018, Pt took one dose of fosfomycin on 06/10/2018 and cipro 06/12-06/15/2018 - anasarca - started on HD on 05/15/2018, via Juan in R groin - recurrent NATHAN on CKD - 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 Her strain of CRE was sensitive to colistin, Avycaz, and Vabomere but resistant to Zerbaxa (reported on 05/19/2018) - metabolic acidosis - adrenal insufficiency - h/o vaginal bleed in 2018 - h/o colonization of urinary tract by ESBL+klebsiella, VRE - h/o recurrent, symptomatic UTI due to carbapenem-resistant kleb (MDR strain) per urine culture 10/04/17, 10/09/17, 10/21/2017, P took colistin (10/09/2017- 10/15/2017), fosfomycin for carbapenemase-producing klebsiella and VRE on 10/25/2017 and 10/28/2017 - h/o funguria - h/o urinary retention # bloodstream infections, and infective endocarditis - 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 Pt took IV amikacin (07/09/2018-08/05/2018) and IV colistin (08/05/2018-08/11/2018). repat TTE on 08/12/2018 showed nearly no change - bacteremia due to pseudomonas aeruginosa 07/09/18, 07/10/18, 07/11/18, 07/12/18, 07/13/18, 07/15/18, 07/17/18. This is associated with PICC because the blood culture from PICC and phlebotomy on 07/13/2018 both grew the same bacteria. The tip of PICC that was removed on 07/14/18 also grew the same bacteria in culture. - Some strains of pseudomonas she had were pansensitive while other strains of pseudomonas were resistant to many antibiotics (MDR). - Pt's strain of pseudomonas on 07/09/2018 was resistant to all except for aminoglycosides (amikacin, gentamicin, tobramycin), colistin (IRASEMA=1, reported to be susceptible) and ceftolozane/tazobactam, but resistant to ceftaz/avibactam - Pt's strain of pseudomonas on was resistant to all except for aminoglycosides (amikacin, gentamicin, tobramycin), colistin (IRASEMA=3, no interpretation) and ceftolozane/tazobactam, but resistant to ceftaz/avibactam 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; Pt declined surgery for MVR per outside medical records; TTE 07/01/17 did not mention any thrombus; s/p voriconazole (05/25/2017-08/01/2017) - h/o bacteremia due to MSSA and proteus s/p ceftriaxone; repeat blood cultures were negative on 06/14/2017 - s/p RUE PICC line placement 07/28/2018 # musculoskeletal and dermatological - dry skin - chronic wound of LLE - h/o infection of wound of LLE - h/o debridement of wound of LLE on 08/06/2017 - h/o recurrent herpes labialis, Pt took acyclovir, valacyclovir - h/o Osler's nodes (eschar) of R toes with erythematous skin; desquamation of the skin and open lacerations on R plantar foot. improved. Probable manifest ation of endocarditis. Pt declined MRI on 08/06/2017 - h/o infection of R toes due to pseudomonas. coagulase negative Staph likely a colonizer - h/o intertrigo of the groin, resolved with nystatin powder - h/o scabies (proven by skin scraping), locally crusted lesion over L scapula, s/p permethrin cream and pGT ivermectin on 08/11/2017, 08/12/2017, 08/19/2017. Repeat skin scraping on 08/21/2017 was negative for scabies # psych, neuro - chronic toxic metabolic encephalopathy, progressing - MRI brain on 07/26/2018 showed no acute intracranial pathology - seizure activity per EEG 07/27/18 - on Dilantin - decreased hearing b/l - h/o critical illness polyneuropathy - anxiety/depression, bipolar d/o, seen by Psychiatry in the past - chronic pain syndrome - h/o medical non-compliance: she would refuse her medications, treatment and straight catheterization in 2018 - complete opacification of the bilateral mastoid air cells per MRI Brain on 07/26/2018 # hematological, vascular - chronic anemia requiring blood transfusion intermittently - macrocytic anemia - aneurysmal dilatation of the distal aorta visualized on CT 06/15/2018 - PVD # other - hypothyroidism with elevated TSH - on Synthroid recommendations: - pending results: two sets of blood cultures from 08/13/2018 - we recommend 6 weeks of antibiotic for probable endocarditis from the first day of negative blood culture, i.e. 07/18/2018 through 08/29/2018. She had MDR pseudomonas and her antibiotic options are limited. She did not tolerate the other antibiotics, IV amikacin (07/09/2018-08/05/2018) and IV colistin (08/05/2018- 08/11/2018). Continue ceftolozane and tazobactam (08/14/2018-), renally dosed d/w PharmD Renny and case rajendra Flores on 08/13/2018 Consultation Date/Type/Reason Admit Date/Time May 06, 2018 at 17:38 Initial Consult Date 05/10/18 Type of Consult ID Requesting Provider: ROLAND GIRON MD Date/Time of Note DATE: 08/14/18 TIME: 12:58 24 HR Interval Summary Subjective hx not possible: pt non-verbal Exam/Review of Systems Exam Vitals Vital Signs Date Temp Pulse Resp B/P (MAP) Pulse Ox O2 O2 Flow FiO2 Time Delivery Rate 08/14/18 98.0 79 22 95/63 (74) 100 Mechanical 11:27 Ventilator 08/14/18 30 09:24 Intake and Output 08/13/18 08/13/18 08/14/18 1515:00 23:00 07:00 IntakeIntake Total 680 ml OutputOutput Total 350 ml 100 ml BalanceBalance -350 ml 580 ml Constitutional: non-verbal, frail Psych: confusion Head: normocephalic, atraumatic Eyes: nl conjunctiva, nl lids, nl sclera ENMT: nl external ears & nose, nl nasal mucosa & septum, mucosa pink and moist Neck: other (trach) Respiratory: diminished breath sounds Cardiovascular: regular rate and rhythm, nl pulses, edema Gastrointestinal: soft, surgical scars, other (GT) Genitourinary - Female: other (FC) Musculoskeletal: nl extremities to inspection Extremities: edema Skin: ecchymosis Results Result Diagram: 08/14/18 0753 08/14/18 0753 Results 24hrs Laboratory Tests Test 08/14/18 07:53 White Blood Count 5.4 Red Blood Count 2.50 #L Hemoglobin 8.4 L Hematocrit 27.9 L Mean Corpuscular Volume 111.6 H Mean Corpuscular Hemoglobin 33.6 H Mean Corpuscular Hemoglobin Concent 30.1 L Red Cell Distribution Width 24.3 H Platelet Count 196 Mean Platelet Volume 10.8 H Immature Granulocytes % 0.400 Neutrophils % 73.6 Lymphocytes % 12.3 L Monocytes % 8.9 Eosinophils % 4.6 Basophils % 0.2 Nucleated Red Blood Cells % 0.4 H Immature Granulocytes # 0.020 Neutrophils # 4.0 Lymphocytes # 0.7 L Monocytes # 0.5 Eosinophils # 0.3 Basophils # 0.0 Nucleated Red Blood Cells # 0.0 Sodium Level 141 Potassium Level 3.4 L Chloride Level 111 H Carbon Dioxide Level 16 L Anion Gap 14 H Blood Urea Nitrogen 111 H Creatinine 3.24 H Est Glomerular Filtrat Rate mL/min Glucose Level 132 Calcium Level 9.9 Phosphorus Level 3.4 Magnesium Level 2.0 Medications Medication Current Medications Clonidine (Catapres) 0.1 mg Q6H PRN PO ELEVATED BLOOD PRESSURE Last administered on 08/03/18 20:27; Admin Dose 0.1 MG; Start 06/03/18 at 03:30 Dicyclomine HCl (Bentyl) 20 mg Q8 PO Last administered on 08/14/18 05:45; Admin Dose 20 MG; Start 06/27/18 at 22:00 Cholestyramine Resin (Questran Light) 4 gm 0600,1200,1800,2300 GTB Last administered on 08/14/18at 12:32; Admin Dose 4 GM; Start 06/27/18 at 18:00 Epoetin Zen-epbx (Retacrit (Non-Esrd)) 10,000 unit MoWeFr@1700 SC Last administered on 08/12/18 17:29; Admin Dose 10,000 UNIT; Start 07/13/18 at 17:00 Albuterol/ Ipratropium (Duoneb) 3 ml Q2H RESP THERAPY PRN HHN WHEEZING Last administered on 07/21/18 23:06; Admin Dose 3 ML; Start 07/21/18 at 22:00 Citric Acid/ Sodium Citrate (Bicitra) 60 ml DAILY PO Last administered on 08/14/18 09:38; Admin Dose 60 ML; Start 07/23/18 at 09:00 Levothyroxine Sodium (Synthroid) 75 mcg DAILY@06 GTB Last administered on 08/14/18 05:31; Admin Dose 75 MCG; Start 07/28/18 at 06:00 Nystatin (Nystatin Powder) 1 applic BID TOP Last administered on 08/14/18 09:42; Admin Dose 1 APPLIC; Start 07/28/18 at 17:30 IV Flush (NS 10 ml) 10 ml Q8 PRN IV IV PROTOCOL; Start 07/28/18 at 19:00 Lorazepam (Ativan) 0.5 mg Q4 PRN IV agitation; Start 08/02/18 at 15:00 Phenytoin (Dilantin) 250 mg Q12@0800,2000 IV Last administered on 08/14/18 09:42; Admin Dose 250 MG; Start 08/05/18 at 09:00 Amiodarone HCl (Cordarone) 200 mg DAILY GTB Last administered on 08/14/18 09:38; Admin Dose 200 MG; Start 08/07/18 at 09:00 Bumetanide (Bumex) 1 mg BID DIURETICS IV Last administered on 08/14/18 05:45; Admin Dose 1 MG; Start 08/13/18 at 18:00 Ceftolozane/ Tazobactam 0.375 gm/Sodium Chloride 100 ml @ 100 mls/hr Q8 IVPB Last administered on 08/14/18 05:30; Admin Dose 100 MLS/HR; Start 08/13/18 at 22:00; Stop 08/29/18 at 21:59 Metoprolol Tartrate (Lopressor) 25 mg Q8 GTB ; Start 08/14/18 at 14:00 CELESTINE MURPHY M.D. Aug 14, 2018 13:02
[2018-08-14] MEDS ORDERED: METOPROLOL 25 MG TAB GTB SCH (14:00)
[2018-08-14] MEDS: EPOETIN ALFA-EPBX (NON-ESRD 10,000 UNIT/ML VIAL SC SCH (18:05)
[2018-08-15] VITALS (17 sets, daily range): BP systolic 92–113; BP diastolic 58–66; PULSE 65–79; RESP 16–27
[2018-08-15] MEDS: TAZOBACTAM IVPB SCH ×3 (06:03→21:54)
[2018-08-15] MEDS: CEFTOLOZANE IVPB SCH ×3 (06:03→21:54)
[2018-08-15] MEDS: SOD CHLORIDE 0.9% IVPB SCH ×3 (06:03→21:54)
[2018-08-15] MEDS: CHOLESTYRAMINE (LIGHT) 4 GM PACKET GTB SCH ×4 (06:05→21:56)
[2018-08-15] MEDS: DICYCLOMINE 10 MG CAP PO SCH ×3 (06:05→21:55)
[2018-08-15] MEDS: LEVOTHYROXINE 75 MCG TAB GTB SCH (06:05)
[2018-08-15] MEDS: BUMETANIDE 1 MG INJ IV SCH ×2 (06:05→18:13)
[2018-08-15] MEDS ORDERED: POTASSIUM CHLORIDE 20 MEQ POWDER FOR ORAL SOLN GTB ONE (08:00)
--- NOTE | 2018-08-15 08:38 | PN ---
DATE: 08/15/2018 SUBJECTIVE: The patient's urinary output has declined approximately 300 mL in the last 24 hours. No other acute events noted. No hemoptysis, hematemesis or hematochezia. VITAL SIGNS: Blood pressure is 105/58, respiration 19, pulse 79, temperature 97.9. HEENT: Head is normocephalic. Neck is supple. HEART: Regular rate. LUNGS: Show diminished breath sounds at the base. ABDOMEN: Soft, nontender to palpation without rebound or guarding. EXTREMITIES: Negative for clubbing, cyanosis. Positive edema, diffuse anasarca. DERMATOLOGIC: No rashes. MUSCULOSKELETAL: No joint effusions. NEUROLOGIC: No change in exam. MEDICATIONS: The patient's medications have been reviewed. LABORATORY DATA: Has been reviewed. Imaging studies have been reviewed. Urinalysis was reviewed. ASSESSMENT AND PLAN: 1. Oliguric acute kidney injury with previous baseline creatinine 2.0 mg/dL. Etiology of initial ac xuan kidney injury secondary to acute tubular necrosis. The patient is status post dialysis for 2 wee ks. Has shown adequate renal recovery. The patient's renal function; however, has declined over the past several days. This is likely secondary to recurrent ATN possibly from antibiotics, sepsis. Th e patient currently is in injury phase as renal function continues to decline. At this point, will c ontinue to monitor closely. If renal function does not stabilize within the next 24 to 48 hours, pat ient may require renal replacement therapy. We will monitor. 2. Hypokalemia. We will replete with potassium chloride. 3. Metabolic acidosis. Continue bicarbonate therapy. 4. Anemia. Monitor hemoglobin and hematocrit levels. 5. Mineral bone disorder, monitor calcium and phosphorus levels. 6. Volume overload. The patient remains grossly edematous, likely secondary to acute kidney injury, chronic kidney disease. The patient's urinary output has been marginal. Will start the patient on Bumex drip and monitor. 7. Sepsis. Continue current antibiotic regimen. Avoid nephrotoxins. 8. Dysphagia. Continue tube feeding. 9. Endocarditis. Continue current antibiotic therapy. 10. Encephalopathy, toxic metabolic, questionable component of uremia. 11. Clostridium difficile. 12. History of lower extremity wounds. Dictated By: JEANA FINE/TABATHA Conf#: [id number] [facility]#: [id number]
--- NOTE | 2018-08-15 10:15 | PN ---
Date/Time of Note Date/Time of Note DATE: 08/15/18 TIME: 10:14 Assessment/Plan VTE [place]axis [place] [facility] [place]: 7 [place]CD applied [place] [facility] [place] No SCD contraindicated: other Pharmacological prophylaxis: LMWH Lines/Catheters IV [facility]atheter [facility] (from [facility] PICC Line Central line still needed: Yes Urinary Cath still in place: Yes Reason Cath still needed: skin wounds contaminated by urine Assessment/Plan Hospital Course 1. Oliguric acute kidney injury with previous baseline creatinine 2.0 mg/dL. Etiology of initial acute kidney injury secondary to acute tubular necrosis. The patient is status post dialysis for 2 weeks. Has shown adequate renal recovery. The patient's renal function; however, has declined over the past several days. This is likely secondary to recurrent ATN possibly from antibiotics, sepsis. The patient currently is in injury phase as renal function continues to decline. At this point, will continue to monitor closely. If renal function does not stabilize within the next 24 to 48 hours, patient may require renal replacement therapy. We will monitor. 2. Hypokalemia. We will replete with potassium chloride. 3. Metabolic acidosis. Continue bicarbonate therapy. 4. Anemia. Monitor hemoglobin and hematocrit levels. 5. Mineral bone disorder, monitor calcium and phosphorus levels. 6. Volume overload. The patient remains grossly edematous, likely secondary to acute kidney injury, chronic kidney disease. The patient's urinary output has been marginal. Will start the patient on Bumex drip and monitor. 7. Sepsis. Continue current antibiotic regimen. Avoid nephrotoxins. 8. Dysphagia. Continue tube feeding. 9. Endocarditis. Continue current antibiotic therapy. 10. Encephalopathy, toxic metabolic, questionable component of uremia. 11. Clostridium difficile. 12. History of lower extremity wounds. Result Diagram: 08/15/18 0655 08/15/18 0655 Results 24hrs Laboratory Tests Test 08/15/18 06:55 White Blood Count 5.2 Red Blood Count 2.28 L Hemoglobin 7.9 L Hematocrit 26.2 L Mean Corpuscular Volume 114.9 H Mean Corpuscular Hemoglobin 34.6 H Mean Corpuscular Hemoglobin Concent 30.2 L Red Cell Distribution Width 24.3 H Platelet Count 176 Mean Platelet Volume 10.3 Immature Granulocytes % 0.400 Neutrophils % 72.4 Lymphocytes % 11.1 L Monocytes % 11.1 H Eosinophils % 4.8 Basophils % 0.2 Nucleated Red Blood Cells % 0.4 H Immature Granulocytes # 0.020 Neutrophils # 3.8 Lymphocytes # 0.6 L Monocytes # 0.6 Eosinophils # 0.3 Basophils # 0.0 Nucleated Red Blood Cells # 0.0 Sodium Level 143 Potassium Level 3.2 L Chloride Level 116 H Carbon Dioxide Level 14 L Anion Gap 13 Blood Urea Nitrogen 102 H Creatinine 3.15 H Est Glomerular Filtrat Rate mL/min Glucose Level 102 Calcium Level 8.9 Phosphorus Level 2.9 Magnesium Level 1.7 Subjective 24 Hr Interval Summary Free Text/Dictation Patient comfortable, on vent Exam/Review of Systems Exam Vitals Vital Signs Date Temp Pulse Resp B/P (MAP) Pulse Ox O2 O2 Flow FiO2 Time Delivery Rate 08/15/18 97.5 77 16 113/61 100 Mechanical 08:23 (78) Ventilator 08/15/18 30 05:46 Intake and Output 08/14/18 08/14/18 08/15/18 1515:00 23:00 07:00 IntakeIntake Total 100 ml OutputOutput Total 200 ml 150 ml BalanceBalance -100 ml -150 ml Constitutional: well developed Head: normocephalic, atraumatic Neck: supple Respiratory: diminished breath sounds Cardiovascular: regular rate and rhythm Gastrointestinal: soft, non-tender Extremities: normal pulses Results Results 24hrs Laboratory Tests Test 08/15/18 06:55 White Blood Count 5.2 Red Blood Count 2.28 L Hemoglobin 7.9 L Hematocrit 26.2 L Mean Corpuscular Volume 114.9 H Mean Corpuscular Hemoglobin 34.6 H Mean Corpuscular Hemoglobin Concent 30.2 L Red Cell Distribution Width 24.3 H Platelet Count 176 Mean Platelet Volume 10.3 Immature Granulocytes % 0.400 Neutrophils % 72.4 Lymphocytes % 11.1 L Monocytes % 11.1 H Eosinophils % 4.8 Basophils % 0.2 Nucleated Red Blood Cells % 0.4 H Immature Granulocytes # 0.020 Neutrophils # 3.8 Lymphocytes # 0.6 L Monocytes # 0.6 Eosinophils # 0.3 Basophils # 0.0 Nucleated Red Blood Cells # 0.0 Sodium Level 143 Potassium Level 3.2 L Chloride Level 116 H Carbon Dioxide Level 14 L Anion Gap 13 Blood Urea Nitrogen 102 H Creatinine 3.15 H Est Glomerular Filtrat Rate mL/min Glucose Level 102 Calcium Level 8.9 Phosphorus Level 2.9 Magnesium Level 1.7 Medications Medication Current Medications Clonidine (Catapres) 0.1 mg Q6H PRN PO ELEVATED BLOOD PRESSURE Last administered on 08/03/18 20:27; Admin Dose 0.1 MG; Start 06/03/18 at 03:30 Dicyclomine HCl (Bentyl) 20 mg Q8 PO Last administered on 08/15/18 06:05; Admin Dose 20 MG; Start 06/27/18 at 22:00 Cholestyramine Resin (Questran Light) 4 gm 0600,1200,1800,2300 GTB Last administered on 08/15/18 06:05; Admin Dose 4 GM; Start 06/27/18 at 18:00 Epoetin Zen-epbx (Retacrit (Non-Esrd)) 10,000 unit MoWeFr@1700 SC Last administered on 08/14/18 18:05; Admin Dose 10,000 UNIT; Start 07/13/18 at 17:00 Albuterol/ Ipratropium (Duoneb) 3 ml Q2H RESP THERAPY PRN HHN WHEEZING Last administered on 07/21/18 23:06; Admin Dose 3 ML; Start 07/21/18 at 22:00 Citric Acid/ Sodium Citrate (Bicitra) 60 ml DAILY PO Last administered on 08/14/18 09:38; Admin Dose 60 ML; Start 07/23/18 at 09:00 Levothyroxine Sodium (Synthroid) 75 mcg DAILY@06 GTB Last administered on 08/15/18 06:05; Admin Dose 75 MCG; Start 07/28/18 at 06:00 Nystatin (Nystatin Powder) 1 applic BID TOP Last administered on 08/14/18at 21:50; Admin Dose 1 APPLIC; Start 07/28/18 at 17:30 IV Flush (NS 10 ml) 10 ml Q8 PRN IV IV PROTOCOL; Start 07/28/18 at 19:00 Lorazepam (Ativan) 0.5 mg Q4 PRN IV agitation; Start 08/02/18 at 15:00 Phenytoin (Dilantin) 250 mg Q12@0800,2000 IV Last administered on 08/14/18 21:46; Admin Dose 250 MG; Start 08/05/18 at 09:00 Bumetanide (Bumex) 1 mg BID DIURETICS IV Last administered on 08/15/18at 06:05; Admin Dose 1 MG; Start 08/13/18 at 18:00 Ceftolozane/ Tazobactam 0.375 gm/Sodium Chloride 100 ml @ 100 mls/hr Q8 IVPB Last administered on 08/15/18at 06:03; Admin Dose 100 MLS/HR; Start 08/13/18 at 22:00; Stop 08/29/18 at 21:59 STEPHANIE BAL Aug 15, 2018 10:15
[2018-08-15] MEDS: CITRIC ACID/NA CITRATE 30 ML CUP PO SCH (10:43)
[2018-08-15] MEDS: NYSTATIN 30 GM POWDER BTL TOP SCH ×2 (10:44→21:53)
[2018-08-15] MEDS: BALSAM PERU/CASTOR OIL 60 GM TUBE TOP SCH ×2 (10:44→21:54)
[2018-08-15] MEDS: PHENYTOIN 100 MG INJ IV SCH ×2 (11:42→21:55)
--- NOTE | 2018-08-15 16:51 | CONS ---
Assessment/Plan Assessment/Plan Hospital Course (Demo Recall) # sepsis, leukocytosis, SIRS, pulmonary, cardiac - recurrent leukocytosis due to bacteremia (below), improved - s/p septic shock due to pneumonia and C diff colitis - acute on chronic hypoxic respiratory failure, persistent - s/p reintubation 05/12/2018 - s/p re-do trach on 05/29/2018 - recurrent colonization of the anterior neck wound with ESBL+kleb, MRSA, GBS, corynebacteria on 05/06/2018 - h/o pneumonia vs. colonization of the airway by pseudomonas and ESBL+klebsiella - h/o possible, recurrent HCAP due to pseudomonas and ESBL+klebsiella - h/o recurrent HCAP due to MRSA and Enterobacter (culture of tracheal aspirate on 07/16/2017 that was collected at [facility]) . Pt took vancomycin and ceftazidime - h/o decannulation prior to admission - h/o tracheostomy on 06/11/2017 - h/o SIRS from UGIB in 2018 - h/o thoracentesis on 07/18/2017, transudative (protein <2, LDH 279) - h/o bleeding from the trach site in 2018 - h/o septic shock due to pneumonia, ARDS, bacteremia, fungemia in 2018 - h/o ARDS in 2018 - h/o smoking - COPD - h/o ILD per medical record - h/o PAF, improved - echodense structure in posterior leafleat region, differential includes calcification vs vegetation per 2D echo 07/15/2018 # GI - s/p possible ileus or enterocolitis on CT abd/pel 06/15/2018-->follow up CT on 07/15/2018 showed no evidence of urolithiasis, obstructive uropathy or diverticulitis; it showed small to moderate ascites-->CT on 08/04/2018 showed colonic obstruction, mild to moderate ascites, diffuse gallbladder wall thickening - C diff colitis, diagnosed on 05/11/2018. Pt took pGT vancomycin (restart 019-08/10/2018), IV metronidazole (05/11/2018-05/29/2018; restart 05/30/2018- 06/05/18) - Pt had multiple negative C. diff tests at [facility] and at OSH in the past; none was positive until 05/11/2018 - dysphagia - h/o PEG placement 06/13/2018 - protein calorie malnutrition - h/o coffee ground emesis/UGIB on 12/23/2017 due to deep ulceration of distal esophagus and gastritis on EGD 12/26/2017. No e/o H. pylori - h/o possible appendicitis on CT on 11/22/2017, Pt took ertapenem (11/24/2017- 12/01/2017) - h/o extensive adhesions lower abdominal and pelvis between small bowel to each other and to colon and to abdominal wall, anterior pelvic wall chronic abscess secondary to probably an old perforated diverticulitis, torsion of small bowel around these dense adhesion causing multiple obstructive points - h/o laparoscopic exploration and extensive lysis of adhesions and drainage of anterior pelvic wall abscess 09/16/2017. Cultures were negative, no e/o malignancy. Pt took pip/tazo (09/16/2017-09/26/2017) - h/o EGD and exchange of PEG on 09/01/2017 - h/o partial obstruction mid jejunum in L anterior central pelvis with suggestion of a 3 cm soft tissue mass on CT 08/28/2017 - h/o internal stomal deep ulcer behind the internal bumper, gastritis and esophagitis, Rodriguez's cannot be ruled out, per EGD with biopsy 07/23/2017 - h/o GIB s/p flex sig showed polyp; stool OB negative on 06/29/17 - h/o stool OB positive status - h/o SBO and ileus due to pain meds - h/o mildly elevated CEA # renal/ - s/p recurrent UTI due to pseudomonas (culture on 07/09/2018)-->Garza catheter was replaced on 07/14/2018 - s/p UTI due to MDR, CRE-klebsiella on 06/15/2018. S/p renally dosed amikacin for klebsiella in her urine culture (06/17-06/22/2018) - s/p UTI due to pseudomonas and ESBL+klebsiella on 06/09/2018, Pt took one dose of fosfomycin on 06/10/2018 and cipro 06/12-06/15/2018 - anasarca - started on HD on 05/15/2018, via Juan in R groin - recurrent NATHAN on CKD - 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 Her strain of CRE was sensitive to colistin, Avycaz, and Vabomere but resistant to Zerbaxa (reported on 05/19/2018) - metabolic acidosis - adrenal insufficiency - h/o vaginal bleed in 2018 - h/o colonization of urinary tract by ESBL+klebsiella, VRE - h/o recurrent, symptomatic UTI due to carbapenem-resistant kleb (MDR strain) per urine culture 10/04/17, 10/09/17, 10/21/2017, P took colistin (10/09/2017- 10/15/2017), fosfomycin for carbapenemase-producing klebsiella and VRE on 10/25/2017 and 10/28/2017 - h/o funguria - h/o urinary retention # bloodstream infections, and infective endocarditis - 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 Pt took IV amikacin (07/09/2018-08/05/2018) and IV colistin (08/05/2018-08/11/2018). repat TTE on 08/12/2018 showed nearly no change - bacteremia due to pseudomonas aeruginosa 07/09/18, 07/10/18, 07/11/18, 07/12/18, 07/13/18, 07/15/18, 07/17/18. This is associated with PICC because the blood culture from PICC and phlebotomy on 07/13/2018 both grew the same bacteria. The tip of PICC that was removed on 07/14/18 also grew the same bacteria in culture. - Some strains of pseudomonas she had were pansensitive while other strains of pseudomonas were resistant to many antibiotics (MDR). - Pt's strain of pseudomonas on 07/09/2018 was resistant to all except for aminoglycosides (amikacin, gentamicin, tobramycin), colistin (IRASEMA=1, reported to be susceptible) and ceftolozane/tazobactam, but resistant to ceftaz/avibactam - Pt's strain of pseudomonas on was resistant to all except for aminoglycosides (amikacin, gentamicin, tobramycin), colistin (IRASEMA=3, no interpretation) and ceftolozane/tazobactam, but resistant to ceftaz/avibactam 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; Pt declined surgery for MVR per outside medical records; TTE 07/01/17 did not mention any thrombus; s/p voriconazole (05/25/2017-08/01/2017) - h/o bacteremia due to MSSA and proteus s/p ceftriaxone; repeat blood cultures were negative on 06/14/2017 - s/p RUE PICC line placement 07/28/2018 # musculoskeletal and dermatological - dry skin - chronic wound of LLE - h/o infection of wound of LLE - h/o debridement of wound of LLE on 08/06/2017 - h/o recurrent herpes labialis, Pt took acyclovir, valacyclovir - h/o Osler's nodes (eschar) of R toes with erythematous skin; desquamation of the skin and open lacerations on R plantar foot. improved. Probable manifest ation of endocarditis. Pt declined MRI on 08/06/2017 - h/o infection of R toes due to pseudomonas. coagulase negative Staph likely a colonizer - h/o intertrigo of the groin, resolved with nystatin powder - h/o scabies (proven by skin scraping), locally crusted lesion over L scapula, s/p permethrin cream and pGT ivermectin on 08/11/2017, 08/12/2017, 08/19/2017. Repeat skin scraping on 08/21/2017 was negative for scabies # psych, neuro - chronic toxic metabolic encephalopathy, progressing - MRI brain on 07/26/2018 showed no acute intracranial pathology - seizure activity per EEG 07/27/18 - on Dilantin - decreased hearing b/l - h/o critical illness polyneuropathy - anxiety/depression, bipolar d/o, seen by Psychiatry in the past - chronic pain syndrome - h/o medical non-compliance: she would refuse her medications, treatment and straight catheterization in 2018 - complete opacification of the bilateral mastoid air cells per MRI Brain on 07/26/2018 # hematological, vascular - chronic anemia requiring blood transfusion intermittently - macrocytic anemia - aneurysmal dilatation of the distal aorta visualized on CT 06/15/2018 - PVD # other - hypothyroidism with elevated TSH - on Synthroid recommendations: - pending results: two sets of blood cultures from 08/13/2018 - we recommend 6 weeks of antibiotic for probable endocarditis from the first day of negative blood culture, i.e. 07/18/2018 through 08/29/2018. She had MDR pseudomonas and her antibiotic options are limited. She did not tolerate the other antibiotics, IV amikacin (07/09/2018-08/05/2018) and IV colistin (08/05/2018- 08/11/2018). Continue ceftolozane and tazobactam (08/14/2018-), renally dosed Consultation Date/Type/Reason Admit Date/Time May 06, 2018 at 17:38 Initial Consult Date 05/10/18 Type of Consult ID Reason for Consultation bacteremia and endocarditis Requesting Provider: ROLAND GIRON MD Date/Time of Note DATE: 08/15/18 TIME: 16:49 24 HR Interval Summary Subjective hx not possible: pt non-verbal Exam/Review of Systems Exam Vitals Vital Signs Date Temp Pulse Resp B/P (MAP) Pulse Ox O2 O2 Flow FiO2 Time Delivery Rate 08/15/18 97.2 76 18 103/66 98 Mechanical 12:38 (78) Ventilator 08/15/18 30 11:22 Intake and Output 08/14/18 08/14/18 08/15/18 1515:00 23:00 07:00 IntakeIntake Total 100 ml OutputOutput Total 200 ml 150 ml BalanceBalance -100 ml -150 ml Constitutional: non-verbal, frail Psych: confusion Head: normocephalic, atraumatic Eyes: nl conjunctiva, nl lids, nl sclera ENMT: nl external ears & nose, nl nasal mucosa & septum, mucosa pink and moist Neck: non-tender, other (trach) Respiratory: crackles/rales, diminished breath sounds Cardiovascular: regular rate and rhythm, nl pulses, edema Gastrointestinal: soft, non-tender; No tender Genitourinary - Female: other (FC) Musculoskeletal: nl extremities to inspection Extremities: edema Neurological: lethargic Skin: ecchymosis Results Result Diagram: 08/15/18 0655 08/15/18 0655 Results 24hrs Laboratory Tests Test 08/15/18 06:55 White Blood Count 5.2 Red Blood Count 2.28 L Hemoglobin 7.9 L Hematocrit 26.2 L Mean Corpuscular Volume 114.9 H Mean Corpuscular Hemoglobin 34.6 H Mean Corpuscular Hemoglobin Concent 30.2 L Red Cell Distribution Width 24.3 H Platelet Count 176 Mean Platelet Volume 10.3 Immature Granulocytes % 0.400 Neutrophils % 72.4 Lymphocytes % 11.1 L Monocytes % 11.1 H Eosinophils % 4.8 Basophils % 0.2 Nucleated Red Blood Cells % 0.4 H Immature Granulocytes # 0.020 Neutrophils # 3.8 Lymphocytes # 0.6 L Monocytes # 0.6 Eosinophils # 0.3 Basophils # 0.0 Nucleated Red Blood Cells # 0.0 Sodium Level 143 Potassium Level 3.2 L Chloride Level 116 H Carbon Dioxide Level 14 L Anion Gap 13 Blood Urea Nitrogen 102 H Creatinine 3.15 H Est Glomerular Filtrat Rate mL/min Glucose Level 102 Calcium Level 8.9 Phosphorus Level 2.9 Magnesium Level 1.7 Medications Medication Current Medications Clonidine (Catapres) 0.1 mg Q6H PRN PO ELEVATED BLOOD PRESSURE Last administered on 08/03/18 20:27; Admin Dose 0.1 MG; Start 06/03/18 at 03:30 Dicyclomine HCl (Bentyl) 20 mg Q8 PO Last administered on 08/15/18 13:59; Admin Dose 20 MG; Start 06/27/18 at 22:00 Cholestyramine Resin (Questran Light) 4 gm 0600,1200,1800,2300 GTB Last administered on 08/15/18 13:59; Admin Dose 4 GM; Start 06/27/18 at 18:00 Epoetin Zen-epbx (Retacrit (Non-Esrd)) 10,000 unit MoWeFr@1700 SC Last administered on 08/14/18 18:05; Admin Dose 10,000 UNIT; Start 07/13/18 at 17:00 Albuterol/ Ipratropium (Duoneb) 3 ml Q2H RESP THERAPY PRN HHN WHEEZING Last administered on 07/21/18 23:06; Admin Dose 3 ML; Start 07/21/18 at 22:00 Citric Acid/ Sodium Citrate (Bicitra) 60 ml DAILY PO Last administered on 08/15/18at 10:43; Admin Dose 60 ML; Start 07/23/18 at 09:00 Levothyroxine Sodium (Synthroid) 75 mcg DAILY@06 GTB Last administered on 08/15/18 06:05; Admin Dose 75 MCG; Start 07/28/18 at 06:00 Nystatin (Nystatin Powder) 1 applic BID TOP Last administered on 08/15/18at 10:44; Admin Dose 1 APPLIC; Start 07/28/18 at 17:30 IV Flush (NS 10 ml) 10 ml Q8 PRN IV IV PROTOCOL; Start 07/28/18 at 19:00 Lorazepam (Ativan) 0.5 mg Q4 PRN IV agitation; Start 08/02/18 at 15:00 Phenytoin (Dilantin) 250 mg Q12@0800,2000 IV Last administered on 08/15/18at 11:42; Admin Dose 250 MG; Start 08/05/18 at 09:00 Bumetanide (Bumex) 1 mg BID DIURETICS IV Last administered on 08/15/18at 06:05; Admin Dose 1 MG; Start 08/13/18 at 18:00 Ceftolozane/ Tazobactam 0.375 gm/Sodium Chloride 100 ml @ 100 mls/hr Q8 IVPB Last administered on 08/15/18 13:59; Admin Dose 100 MLS/HR; Start 08/13/18 at 22:00; Stop 08/29/18 at 21:59 CELESTINE MURPHY M.D. Aug 15, 2018 16:51
[2018-08-16] VITALS (18 sets, daily range): BP systolic 106–130; BP diastolic 62–72; PULSE 71–87; RESP 17–83
[2018-08-16] MEDS: DICYCLOMINE 10 MG CAP PO SCH ×3 (05:33→22:05)
[2018-08-16] MEDS: CHOLESTYRAMINE (LIGHT) 4 GM PACKET GTB SCH ×4 (05:34→22:04)
[2018-08-16] MEDS: SOD CHLORIDE 0.9% IVPB SCH ×3 (05:34→22:04)
[2018-08-16] MEDS: LEVOTHYROXINE 75 MCG TAB GTB SCH (05:34)
[2018-08-16] MEDS: BUMETANIDE 1 MG INJ IV SCH ×2 (05:34→17:29)
[2018-08-16] MEDS: TAZOBACTAM IVPB SCH ×3 (05:34→22:04)
[2018-08-16] MEDS: CEFTOLOZANE IVPB SCH ×3 (05:34→22:04)
[2018-08-16] MEDS ORDERED: BUMETANIDE 6 MG in DEXTROSE 5% 36 ML IV ONE (09:00)
[2018-08-16] MEDS: PHENYTOIN 100 MG INJ IV SCH ×2 (10:18→22:27)
[2018-08-16] MEDS ORDERED: NA BICARBONATE 8.4% 50 ML SYG IV STA (10:19)
--- NOTE | 2018-08-16 10:26 | PN ---
DATE: 08/16/2018 SUBJECTIVE: The patient remains stable. No events overnight. The patient's urinary output has been minimal. No other acute events noted. No hemoptysis, hematemesis, hematochezia. OBJECTIVE: VITAL SIGNS: Blood pressure is 125/63, respirations 22, pulse 77, temperature is 98.0. HEENT: Head is normocephalic. NECK: Supple. HEART: Regular rate. LUNGS: Show diminished breath sounds at the base. ABDOMEN: Soft, nontender to palpation. No rebound or guarding. EXTREMITIES: Negative for clubbing, cyanosis. Diffuse anasarca. DERMATOLOGIC: No rashes. MUSCULOSKELETAL: No joint effusion. NEUROLOGIC: No change in exam. MEDICATIONS: The patient's medications have been reviewed. LABORATORY DATA: Has been reviewed. IMAGING STUDIES: Have been reviewed. ASSESSMENT AND PLAN: 1. Oliguric acute kidney injury with previous baseline creatinine around 2.0 mg/dL. Etiology of acu te kidney injury is secondary to acute tubular necrosis. The patient is status post hemodialysis for 2 weeks. The patient showed adequate recovery. Dialysis was discontinued. The patient, however, i n the last 14 days has shown another decline in renal function likely due to recurrent, possibly from antibiotics and sepsis. The patient remains in injury phase as renal function continues to decline. The patient is grossly volume overloaded. We will attempt a diuretic challenge with Bumex drip. I f renal function does not improve, the patient may have to be reinitiated on hemodialysis. 2. Volume overload. Etiology is secondary to advanced CKD, diastolic heart failure. Will start pat ient on Bumex drip. Monitor closely. 3. Hypokalemia. Continue to monitor and replete as needed. 4. Metabolic acidosis. Continue bicarbonate therapy. 5. Anemia. Monitor hemoglobin and hematocrit levels. 6. Mineral bone disorder. Monitor calcium and phosphorus levels. 7. Sepsis. Continue current antibiotic regimen. Avoid nephrotoxins. 8. Dysphagia. Continue tube feeding. 9. Endocarditis. Continue current antibiotic therapy. 10. Encephalopathy, etiology is toxic metabolic cause with a possible component of uremia. 11. C. Difficile. 12. Lower extremity wounds. Dictated By: JEANA FINE/TABATHA Conf#: [id number] DID#: [id number] CC: QUINTEN UMAÑA MD; ROLAND GIRON MD;*EndCC*
[2018-08-16] MEDS: BALSAM PERU/CASTOR OIL 60 GM TUBE TOP SCH ×2 (10:28→22:05)
[2018-08-16] MEDS: CITRIC ACID/NA CITRATE 30 ML CUP PO SCH (10:28)
[2018-08-16] MEDS: NYSTATIN 30 GM POWDER BTL TOP SCH ×2 (10:29→22:05)
--- NOTE | 2018-08-16 11:17 | PN ---
Date/Time of Note Date/Time of Note DATE: 08/16/18 TIME: 11:16 Assessment/Plan [place]TE [place] [facility] [place]: 7 [place] [facility] [place]CD contraindicated: other Pharmacological prophylaxis: LMWH Lines/Catheters [facility]atheter Type (from [facility] PICC Line Central line still needed: Yes Urinary Cath still in place: Yes Reason Cath still needed: skin wounds contaminated by urine Assessment/Plan Hospital Course 1. Oliguric acute kidney injury with previous baseline creatinine 2.0 mg/dL. Etiology of initial acute kidney injury secondary to acute tubular necrosis. The patient is status post dialysis for 2 weeks. Has shown adequate renal recovery. The patient's renal function; however, has declined over the past several days. This is likely secondary to recurrent ATN possibly from antibiotics, sepsis. The patient currently is in injury phase as renal function continues to decline. At this point, will continue to monitor closely. If renal function does not stabilize within the next 24 to 48 hours, patient may require renal replacement therapy. We will monitor. 2. Hypokalemia. We will replete with potassium chloride. 3. Metabolic acidosis. Continue bicarbonate therapy. 4. Anemia. Monitor hemoglobin and hematocrit levels. 5. Mineral bone disorder, monitor calcium and phosphorus levels. 6. Volume overload. The patient remains grossly edematous, likely secondary to acute kidney injury, chronic kidney disease. The patient's urinary output has been marginal. Will start the patient on Bumex drip and monitor. 7. Sepsis. Continue current antibiotic regimen. Avoid nephrotoxins. 8. Dysphagia. Continue tube feeding. 9. Endocarditis. Continue current antibiotic therapy. 10. Encephalopathy, toxic metabolic, questionable component of uremia. 11. Clostridium difficile. 12. History of lower extremity wounds. Result Diagram: 08/15/18 0655 08/16/18 0620 Results 24hrs Laboratory Tests Test 08/16/18 06:20 08/16/18 07:48 Sodium Level 140 Potassium Level 4.0 Chloride Level 110 Carbon Dioxide Level 14 L Anion Gap 16 H Blood Urea Nitrogen 115 H Creatinine 3.57 H Est Glomerular Filtrat Rate mL/min Glucose Level 124 Calcium Level 9.9 Phosphorus Level 3.4 Magnesium Level 1.8 Blood Gas Specimen Source Blood arterial Arterial Blood Date Drawn 08/16/2018 9:27:45 AM Arterial Blood pH (Temp corrected) 7.252 *L Arterial Blood pCO2 (Temp correct) 32.2 L Arterial Blood pO2 (Temp corrected) 104.5 H Arterial Blood HCO3 13.9 L Arterial Blood Base Excess -12.2 L Arterial Blood Oxygen Saturation 97.0 Steven Test ACCEPTAB Arterial Blood Gas Puncture Site Left Radial Arterial Blood Carboxyhemoglobin 0.2 Arterial Blood Methemoglobin 0.4 Blood Gas A-a O2 Differential 71.6 H Oxyhemoglobin Percent 96.4 Blood Gas Temperature 37.0 Blood Gas Respiration Rate 20.0 Blood Gas Actual Respiration Rate 29 Blood Gas Modality VENT - AC FiO2 30.0 Blood Gas Inspiratory Time 0.8 Blood Gas Tidal Volume 500.0 Blood Gas Low PEEP Setting 5.0 Blood Gas Critical Value Read Back FOZIA SABA Blood Gas Notified Whom Janell Blood Gas Notified Time 08/16/2018 9:40:50 AM Subjective 24 Hr Interval Summary Free Text/Dictation Patient resting comfortably Exam/Review of Systems Exam Vitals Vital Signs Date Temp Pulse Resp B/P (MAP) Pulse Ox O2 O2 Flow FiO2 Time Delivery Rate 08/16/18 30 08:17 08/16/18 97.9 87 23 130/72 100 07:58 (91) 08/16/18 Mechanical 04:33 Ventilator Intake and Output 08/15/18 08/15/18 08/16/18 1515:00 23:00 07:00 IntakeIntake Total 615 ml 680 ml 100 ml OutputOutput Total 250 ml 201 ml BalanceBalance 365 ml 479 ml 100 ml Constitutional: well developed Head: normocephalic, atraumatic Neck: supple Respiratory: diminished breath sounds Cardiovascular: regular rate and rhythm Gastrointestinal: soft, non-tender Extremities: normal pulses Results Results 24hrs Laboratory Tests Test 08/16/18 06:20 08/16/18 07:48 Sodium Level 140 Potassium Level 4.0 Chloride Level 110 Carbon Dioxide Level 14 L Anion Gap 16 H Blood Urea Nitrogen 115 H Creatinine 3.57 H Est Glomerular Filtrat Rate mL/min Glucose Level 124 Calcium Level 9.9 Phosphorus Level 3.4 Magnesium Level 1.8 Blood Gas Specimen Source Blood arterial Arterial Blood Date Drawn 08/16/2018 9:27:45 AM Arterial Blood pH (Temp corrected) 7.252 *L Arterial Blood pCO2 (Temp correct) 32.2 L Arterial Blood pO2 (Temp corrected) 104.5 H Arterial Blood HCO3 13.9 L Arterial Blood Base Excess -12.2 L Arterial Blood Oxygen Saturation 97.0 Steven Test ACCEPTAB Arterial Blood Gas Puncture Site Left Radial Arterial Blood Carboxyhemoglobin 0.2 Arterial Blood Methemoglobin 0.4 Blood Gas A-a O2 Differential 71.6 H Oxyhemoglobin Percent 96.4 Blood Gas Temperature 37.0 Blood Gas Respiration Rate 20.0 Blood Gas Actual Respiration Rate 29 Blood Gas Modality VENT - AC FiO2 30.0 Blood Gas Inspiratory Time 0.8 Blood Gas Tidal Volume 500.0 Blood Gas Low PEEP Setting 5.0 Blood Gas Critical Value Read Back FOZIA SABA Blood Gas Notified Whom Janell Blood Gas Notified Time 08/16/2018 9:40:50 AM Medications Medication Current Medications Clonidine (Catapres) 0.1 mg Q6H PRN PO ELEVATED BLOOD PRESSURE Last administered on 08/03/18 20:27; Admin Dose 0.1 MG; Start 06/03/18 at 03:30 Dicyclomine HCl (Bentyl) 20 mg Q8 PO Last administered on 08/16/18 05:33; Admin Dose 20 MG; Start 06/27/18 at 22:00 Cholestyramine Resin (Questran Light) 4 gm 0600,1200,1800,2300 GTB Last administered on 08/16/18 05:34; Admin Dose 4 GM; Start 06/27/18 at 18:00 Epoetin Ezn-epbx (Retacrit (Non-Esrd)) 10,000 unit MoWeFr@1700 SC Last administered on 08/14/18 18:05; Admin Dose 10,000 UNIT; Start 07/13/18 at 17:00 Albuterol/ Ipratropium (Duoneb) 3 ml Q2H RESP THERAPY PRN HHN WHEEZING Last administered on 07/21/18 23:06; Admin Dose 3 ML; Start 07/21/18 at 22:00 Citric Acid/ Sodium Citrate (Bicitra) 60 ml DAILY PO Last administered on 08/16/18 10:28; Admin Dose 60 ML; Start 07/23/18 at 09:00 Levothyroxine Sodium (Synthroid) 75 mcg DAILY@06 GTB Last administered on 08/16/18 05:34; Admin Dose 75 MCG; Start 07/28/18 at 06:00 Nystatin (Nystatin Powder) 1 applic BID TOP Last administered on 08/16/18at 10:29; Admin Dose 1 APPLIC; Start 07/28/18 at 17:30 IV Flush (NS 10 ml) 10 ml Q8 PRN IV IV PROTOCOL; Start 07/28/18 at 19:00 Lorazepam (Ativan) 0.5 mg Q4 PRN IV agitation; Start 08/02/18 at 15:00 Phenytoin (Dilantin) 250 mg Q12@0800,2000 IV Last administered on 08/16/18at 10: 18; Admin Dose 250 MG; Start 08/05/18 at 09:00 Bumetanide (Bumex) 1 mg BID DIURETICS IV Last administered on 08/16/18 05:34; Admin Dose 1 MG; Start 08/13/18 at 18:00 Ceftolozane/ Tazobactam 0.375 gm/Sodium Chloride 100 ml @ 100 mls/hr Q8 IVPB Last administered on 08/16/18at 05:34; Admin Dose 100 MLS/HR; Start 08/13/18 at 22:00; Stop 08/29/18 at 21:59 Bumetanide 6 mg/ Dextrose 60 ml @ 10 mls/hr Q6H ONCE IV Last administered on 08/16/18at 10:28; Admin Dose 10 MLS/HR; Start 08/16/18 at 09:00; Stop 08/16/18 at 14:59 STEPHANIE BAL Aug 16, 2018 11:17
--- NOTE | 2018-08-16 13:06 | CONS ---
Consult Date/Type/Reason Admit Date/Time May 06, 2018 at 17:38 Initial Consult Date 05/10/18 Type of Consultation: neph Requesting Provider: ROLAND GIRON MD Date/Time of Note DATE: 08/16/18 TIME: 13:01 Subjective Cardiology follow-up progress note Subjective: Case discussed with the staff and telemetry was reviewed. Patient has remained in sinus rhythm. Patient remains status post tracheostomy on the ventilator. . Nonverbal does not answer my question now Objective:. General: no acute distress but status post tracheostomy on the ventilator HEENT: NC/AT. pupils are equal. round. NECK: Status post tracheostomy. no stridor. CV: RRR. systolic murmur; no gallop or rubs. PULM: no wheezing or rhonchi. GI: SOFT, NT, ND, no rebound or guarding Extremity:+ B/L LE edema. no clubbing. neuro: Sleeping comfortably Psych: calm and pleasant rectal: deferred : normal Objective Vitals Vital Signs Date Temp Pulse Resp B/P (MAP) Pulse Ox O2 O2 Flow FiO2 Time Delivery Rate 08/16/18 98.4 83 28 126/65 100 12:04 (85) 08/16/18 30 11:18 08/16/18 Mechanical 04:33 Ventilator Intake and Output 08/15/18 08/15/18 08/16/18 1414:59 22:59 06:59 IntakeIntake Total 615 ml 680 ml 100 ml OutputOutput Total 250 ml 201 ml BalanceBalance 365 ml 479 ml 100 ml Results/Medications Result Diagram: 08/15/18 0655 08/16/18 0620 Results 24 hrs Laboratory Tests Test 08/16/18 06:20 08/16/18 07:48 Sodium Level 140 Potassium Level 4.0 Chloride Level 110 Carbon Dioxide Level 14 L Anion Gap 16 H Blood Urea Nitrogen 115 H Creatinine 3.57 H Est Glomerular Filtrat Rate mL/min Glucose Level 124 Calcium Level 9.9 Phosphorus Level 3.4 Magnesium Level 1.8 Blood Gas Specimen Source Blood arterial Arterial Blood Date Drawn 08/16/2018 9:27:45 AM Arterial Blood pH (Temp corrected) 7.252 *L Arterial Blood pCO2 (Temp correct) 32.2 L Arterial Blood pO2 (Temp corrected) 104.5 H Arterial Blood HCO3 13.9 L Arterial Blood Base Excess -12.2 L Arterial Blood Oxygen Saturation 97.0 Steven Test ACCEPTAB Arterial Blood Gas Puncture Site Left Radial Arterial Blood Carboxyhemoglobin 0.2 Arterial Blood Methemoglobin 0.4 Blood Gas A-a O2 Differential 71.6 H Oxyhemoglobin Percent 96.4 Blood Gas Temperature 37.0 Blood Gas Respiration Rate 20.0 Blood Gas Actual Respiration Rate 29 Blood Gas Modality VENT - AC FiO2 30.0 Blood Gas Inspiratory Time 0.8 Blood Gas Tidal Volume 500.0 Blood Gas Low PEEP Setting 5.0 Blood Gas Critical Value Read Back FOZIA SABA Blood Gas Notified Whom Janell Blood Gas Notified Time 08/16/2018 9:40:50 AM Home Meds Reported Medications Zinc Sulfate* (Zinc Sulfate*) 220 Mg Tablet, 220 MG GTB DAILY, TAB START DATE 05/04/18, END DATE 06/03/18 05/06/18 Diclofenac Sodium* (Voltaren* Gel) 1% -100 Gm Gel, 2 GM TOP TID, #1 TUB 05/06/18 Ascorbic Acid (Vitamin C) 500 Mg Tab, 500 MG GTB DAILY, TAB 05/06/18 Quetiapine Fumarate* (Seroquel*) 100 Mg Tablet, 600 MG GTB HS, #30 TAB 05/06/18 Protein Supplement (Promod) 946 Ml Liquid, 30 ML GTB BID 05/06/18 Epoetin Zen (Procrit) 20,000 Unit/1 Ml Vial, 24887 UNIT IJ Q TUE for FOR ANEMIA OF CKD, VIAL HOLD IFHGB IS EQUAL OR GREATER THAN 11 05/06/18 Ondansetron Hcl* (Ondansetron Hcl* Liq) 4 Mg/5 Ml Solution, 4 MG GTB Q6H PRN for NAUSEA AND/OR VOMITING, ML 05/06/18 Multivitamin with Minerals (Multivitamins with Minerals) 1 Each Tablet, 1 EACH GTB QAM, TAB 05/06/18 Metoprolol Tartrate* (Lopressor*) 25 Mg Tab, 25 MG GTB BID, #60 TAB HOLD FOR SBP<110 OR HR<60 05/06/18 Lorazepam* (Ativan* Intensol) 2 Mg/Ml Soln, 0.5 MG IV* Q6H PRN for ANXIETY, #1 BOTTLE START DATE 04/02/18, END DATE 06/01/18 05/06/18 Lidocaine (Lidocaine) 1 Each Adh..patch, 1 EACH TP Q12H 5% 05/06/18 Ipratropium-Albuterol (Ipratropium-Albuterol) 0.5-3 Mg/3 Ml Ampul.neb, 3 ML INHALATION Q6 PRN for BRONCHOSPASM, #30 VIAL 05/06/18 Ipratropium-Albuterol (Ipratropium-Albuterol) 0.5-3 Mg/3 Ml Ampul.neb, 3 ML IN HALATION Q2H PRN for BRONCHOSPASM, #30 VIAL 05/06/18 Famotidine* (Famotidine*) 20 Mg Tablet, 20 MG GTB BID, #60 TAB 05/06/18 Valproic Acid* (Depakene*) 250 Mg/5 Ml Udc Syrup, 100 MG GTB QHS, ML 05/06/18 Clonidine Hcl* (Clonidine Hcl*) 0.1 Mg Tab, 0.1 MG GTB Q6 PRN for NEEDED, TAB FOR SBP>160 OR DBP>90 05/06/18 Aspirin* (Aspirin* Chew) 81 Mg Tab.chew, 81 MG GTB DAILY, TAB.CHEW 05/06/18 Medications Current Medications Clonidine (Catapres) 0.1 mg Q6H PRN PO ELEVATED BLOOD PRESSURE Last administered on 08/03/18at 20:27; Admin Dose 0.1 MG; Start 06/03/18 at 03:30 Dicyclomine HCl (Bentyl) 20 mg Q8 PO Last administered on 08/16/18 05:33; Admin Dose 20 MG; Start 06/27/18 at 22:00 Cholestyramine Resin (Questran Light) 4 gm 0600,1200,1800,2300 GTB Last administered on 08/16/18at 05:34; Admin Dose 4 GM; Start 06/27/18 at 18:00 Epoetin Zen-epbx (Retacrit (Non-Esrd)) 10,000 unit MoWeFr@1700 SC Last administered on 08/14/18at 18:05; Admin Dose 10,000 UNIT; Start 07/13/18 at 17:00 Albuterol/ Ipratropium (Duoneb) 3 ml Q2H RESP THERAPY PRN HHN WHEEZING Last administered on 07/21/18at 23:06; Admin Dose 3 ML; Start 07/21/18 at 22:00 Citric Acid/ Sodium Citrate (Bicitra) 60 ml DAILY PO Last administered on 08/16/18 10:28; Admin Dose 60 ML; Start 07/23/18 at 09:00 Levothyroxine Sodium (Synthroid) 75 mcg DAILY@06 GTB Last administered on 08/16/18 05:34; Admin Dose 75 MCG; Start 07/28/18 at 06:00 Nystatin (Nystatin Powder) 1 applic BID TOP Last administered on 08/16/18 10:29; Admin Dose 1 APPLIC; Start 07/28/18 at 17:30 IV Flush (NS 10 ml) 10 ml Q8 PRN IV IV PROTOCOL; Start 07/28/18 at 19:00 Lorazepam (Ativan) 0.5 mg Q4 PRN IV agitation; Start 08/02/18 at 15:00 Phenytoin (Dilantin) 250 mg Q12@0800,2000 IV Last administered on 08/16/18 10:18; Admin Dose 250 MG; Start 08/05/18 at 09:00 Bumetanide (Bumex) 1 mg BID DIURETICS IV Last administered on 08/16/18 05:34; Admin Dose 1 MG; Start 08/13/18 at 18:00 Ceftolozane/ Tazobactam 0.375 gm/Sodium Chloride 100 ml @ 100 mls/hr Q8 IVPB Last administered on 08/16/18 05:34; Admin Dose 100 MLS/HR; Start 08/13/18 at 22:00; Stop 08/29/18 at 21:59 Bumetanide 6 mg/ Dextrose 60 ml @ 10 mls/hr Q6H ONCE IV Last administered on 08/16/18 10:28; Admin Dose 10 MLS/HR; Start 08/16/18 at 09:00; Stop 08/16/18 at 14:59 Assessment/Plan Hospital Course (Demo Recall) s/p shock / sepsis Hypotension : Currently off of IV pressor Acute respiratory failure status post trach Acute blood loss anemia History of chronic respiratory failure status post decannulation with preserved ejection fraction echocardiogram 05/10/2018 Paroxysmal atrial fibrillation, currently sinus rhythm Acute kidney injury ? endocarditis Recommendation: -Vent management as per pulmonary -Fluid management as per renal, -Antibiotics as per infectious disease Correct electrolyte as needed including potassium magnesium transfusions prn cont thyroid replacement therapy Thank you for his referral. We will continue to follow along with you until Dr. Stahl returns on Friday DAVID LOPES MD [facility] DAVID LOPES MD Aug 16, 2018 13:06
--- NOTE | 2018-08-16 21:03 | CONS ---
Assessment/Plan Assessment/Plan Hospital Course (Demo Recall) # sepsis, leukocytosis, SIRS, pulmonary, cardiac - SIRS due to worsening renal failure - recurrent leukocytosis due to bacteremia (below) - s/p septic shock due to pneumonia and C diff colitis - acute on chronic hypoxic respiratory failure, persistent - s/p reintubation 05/12/2018 - s/p re-do trach on 05/29/2018 - recurrent colonization of the anterior neck wound with ESBL+kleb, MRSA, GBS, corynebacteria on 05/06/2018 - h/o pneumonia vs. colonization of the airway by pseudomonas and ESBL+kleb siella - h/o possible, recurrent HCAP due to pseudomonas and ESBL+klebsiella - h/o recurrent HCAP due to MRSA and Enterobacter (culture of tracheal aspirate on 07/16/2017 that was collected at [facility]) . Pt took vancomycin and ceftazidime - h/o decannulation prior to admission - h/o tracheostomy on 06/11/2017 - h/o SIRS from UGIB in 2018 - h/o thoracentesis on 07/18/2017, transudative (protein <2, LDH 279) - h/o bleeding from the trach site in 2018 - h/o septic shock due to pneumonia, ARDS, bacteremia, fungemia in 2018 - h/o ARDS in 2018 - h/o smoking - COPD - h/o ILD per medical record - h/o PAF, improved - echodense structure in posterior leafleat region, differential includes calcification vs vegetation per 2D echo 07/15/2018 # GI - s/p possible ileus or enterocolitis on CT abd/pel 06/15/2018-->follow up CT on 07/15/2018 showed no evidence of urolithiasis, obstructive uropathy or diverticulitis; it showed small to moderate ascites-->CT on 08/04/2018 showed colonic obstruction, mild to moderate ascites, diffuse gallbladder wall thickening - C diff colitis, diagnosed on 05/11/2018. Pt took pGT vancomycin (restart 07/09/2018-08/10/2018), IV metronidazole (05/11/2018-05/29/2018; restart 05/30/2018- 06/05/18) - Pt had multiple negative C. diff tests at [facility] and at OSH in the past; none was positive until 05/11/2018 - dysphagia - h/o PEG placement 06/13/2018 - protein calorie malnutrition - h/o coffee ground emesis/UGIB on 12/23/2017 due to deep ulceration of distal esophagus and gastritis on EGD 12/26/2017. No e/o H. pylori - h/o possible appendicitis on CT on 11/22/2017, Pt took ertapenem (11/24/2017- 12/01/2017) - h/o extensive adhesions lower abdominal and pelvis between small bowel to each other and to colon and to abdominal wall, anterior pelvic wall chronic abscess secondary to probably an old perforated diverticulitis, torsion of small bowel around these dense adhesion causing multiple obstructive points - h/o laparoscopic exploration and extensive lysis of adhesions and drainage of anterior pelvic wall abscess 09/16/2017. Cultures were negative, no e/o malignancy. Pt took pip/tazo (09/16/2017-09/26/2017) - h/o EGD and exchange of PEG on 09/01/2017 - h/o partial obstruction mid jejunum in L anterior central pelvis with suggestion of a 3 cm soft tissue mass on CT 08/28/2017 - h/o internal stomal deep ulcer behind the internal bumper, gastritis and esophagitis, Rodriguez's cannot be ruled out, per EGD with biopsy 07/23/2017 - h/o GIB s/p flex sig showed polyp; stool OB negative on 06/29/17 - h/o stool OB positive status - h/o SBO and ileus due to pain meds - h/o mildly elevated CEA # renal/ - s/p recurrent UTI due to pseudomonas (culture on 07/09/2018)-->Garza catheter was replaced on 07/14/2018 - s/p UTI due to MDR, CRE-klebsiella on 06/15/2018. S/p renally dosed amikacin for klebsiella in her urine culture (06/17-06/22/2018) - s/p UTI due to pseudomonas and ESBL+klebsiella on 06/09/2018, Pt took one dose of fosfomycin on 06/10/2018 and cipro 06/12-06/15/2018 - anasarca - started on HD on 05/15/2018, [facility] Last dialyzed in 05/2018 - recurrent NATHAN on CKD - oliguria - 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 Her strain of CRE was sensitive to colistin, Avycaz, and Vabomere but resistant to Zerbaxa (reported on 05/19/2018) - metabolic acidosis - adrenal insufficiency - h/o vaginal bleed in 2018 - h/o colonization of urinary tract by ESBL+klebsiella, VRE - h/o recurrent, symptomatic UTI due to carbapenem-resistant kleb (MDR strain) per urine culture 10/04/17, 10/09/17, 10/21/2017, P took colistin (10/09/2017- 10/15/2017), fosfomycin for carbapenemase-producing klebsiella and VRE on 10/25/2017 and 10/28/2017 - h/o funguria - h/o urinary retention # bloodstream infections, and infective endocarditis - 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 Pt took IV amikacin (07/09/2018-08/05/2018) and IV colistin (08/05/2018-08/11/2018). repat TTE on 08/12/2018 showed nearly no change - bacteremia due to pseudomonas aeruginosa 07/09/18, 07/10/18, 07/11/18, 07/12/18, 07/13/18, 07/15/18, 07/17/18. This is associated with PICC because the blood culture from PICC and phlebotomy on 07/13/2018 both grew the same bacteria. The tip of PICC that was removed on 07/14/18 also grew the same bacteria in culture. - Some strains of pseudomonas she had were pansensitive while other strains of pseudomonas were resistant to many antibiotics (MDR). - Pt's strain of pseudomonas on 07/09/2018 was resistant to all except for aminoglycosides (amikacin, gentamicin, tobramycin), colistin (IRASEMA=1, reported to be susceptible) and ceftolozane/tazobactam, but resistant to ceftaz/avibactam - Pt's strain of pseudomonas on was resistant to all except for aminoglycosides (amikacin, gentamicin, tobramycin), colistin (IRASEMA=3, no inter pretation) and ceftolozane/tazobactam, but resistant to ceftaz/avibactam 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; Pt declined surgery for MVR per outside medical records; TTE 07/01/17 did not mention any thrombus; s/p voriconazole (05/25/2017-08/01/2017) - h/o bacteremia due to MSSA and proteus s/p ceftriaxone; repeat blood cultures were negative on 06/14/2017 - s/p RUE PICC line placement 07/28/2018 # musculoskeletal and dermatological - dry skin - chronic wound of LLE - h/o infection of wound of LLE - h/o debridement of wound of LLE on 08/06/2017 - h/o recurrent herpes labialis, Pt took acyclovir, valacyclovir - h/o Osler's nodes (eschar) of R toes with erythematous skin; desquamation of the skin and open lacerations on R plantar foot. improved. Probable manifestation of endocarditis. Pt declined MRI on 08/06/2017 - h/o infection of R toes due to pseudomonas. coagulase negative Staph likely a colonizer - h/o intertrigo of the groin, resolved with nystatin powder - h/o scabies (proven by skin scraping), locally crusted lesion over L scapula, s/p permethrin cream and pGT ivermectin on 08/11/2017, 08/12/2017, 08/19/2017. Repeat skin scraping on 08/21/2017 was negative for scabies # psych, neuro - chronic toxic metabolic encephalopathy, progressing - MRI brain on 07/26/2018 showed no acute intracranial pathology - seizure activity per EEG 07/27/18 - on Dilantin - decreased hearing b/l - h/o critical illness polyneuropathy - anxiety/depression, bipolar d/o, seen by Psychiatry in the past - chronic pain syndrome - h/o medical non-compliance: she would refuse her medications, treatment and straight catheterization in 2018 - complete opacification of the bilateral mastoid air cells per MRI Brain on 07/26/2018 # hematological, vascular - chronic anemia requiring blood transfusion intermittently - macrocytic anemia - aneurysmal dilatation of the distal aorta visualized on CT 06/15/2018 - PVD # other - hypothyroidism with elevated TSH - on Synthroid recommendations: - we recommend 6 weeks of antibiotic for probable endocarditis from the first day of negative blood culture, i.e. 07/18/2018 through 08/29/2018. Continue ceftolozane and tazobactam (08/14/2018-), renally dosed. She had MDR pseudomonas and her antibiotic options are limited. She did not tolerate the other antibiotics, IV amikacin (07/09/2018-08/05/2018) and IV colistin (08/05/2018- 08/11/2018) - supportive care management d/w Billy Consultation Date/Type/Reason Admit Date/Time May 06, 2018 at 17:38 Initial Consult Date 05/10/18 Type of Consult ID Requesting Provider: ROLAND GIRON MD Date/Time of Note DATE: 08/16/18 TIME: 20:54 24 HR Interval Summary Subjective hx not possible: pt non-verbal, pt critical, pt critical status Exam/Review of Systems Exam Vitals Vital Signs Date Temp Pulse Resp B/P (MAP) Pulse Ox O2 O2 Flow FiO2 Time Delivery Rate 08/16/18 98.3 83 17 116/68 97 20:00 (84) 08/16/18 30 19:35 08/16/18 Mechanical 04:33 Ventilator Intake and Output 08/15/18 08/15/18 08/16/18 1515:00 23:00 07:00 IntakeIntake Total 615 ml 680 ml 100 ml OutputOutput Total 250 ml 201 ml BalanceBalance 365 ml 479 ml 100 ml Constitutional: non-verbal, obese Psych: confusion Head: normocephalic, atraumatic Eyes: nl conjunctiva, nl lids ENMT: nl external ears & nose, nl nasal mucosa & septum, other (+drooling) Neck: other (trach) Respiratory: crackles/rales Cardiovascular: regular rate and rhythm, nl pulses, edema, other (anasarca) Gastrointestinal: soft, surgical scars, other (edematous abd wall, G tube); No distended Genitourinary - Female: other (FC) Musculoskeletal: swelling Extremities: edema, pitting pedal edema Neurological: confused, lethargic Skin: ecchymosis Results Result Diagram: 08/15/18 0655 08/16/18 0620 Results 24hrs Laboratory Tests Test 08/16/18 06:20 08/16/18 07:48 Sodium Level 140 Potassium Level 4.0 Chloride Level 110 Carbon Dioxide Level 14 L Anion Gap 16 H Blood Urea Nitrogen 115 H Creatinine 3.57 H Est Glomerular Filtrat Rate mL/min Glucose Level 124 Calcium Level 9.9 Phosphorus Level 3.4 Magnesium Level 1.8 Blood Gas Specimen Source Blood arterial Arterial Blood Date Drawn 08/16/2018 9:27:45 AM Arterial Blood pH (Temp corrected) 7.252 *L Arterial Blood pCO2 (Temp correct) 32.2 L Arterial Blood pO2 (Temp corrected) 104.5 H Arterial Blood HCO3 13.9 L Arterial Blood Base Excess -12.2 L Arterial Blood Oxygen Saturation 97.0 Steven Test ACCEPTAB Arterial Blood Gas Puncture Site Left Radial Arterial Blood Carboxyhemoglobin 0.2 Arterial Blood Methemoglobin 0.4 Blood Gas A-a O2 Differential 71.6 H Oxyhemoglobin Percent 96.4 Blood Gas Temperature 37.0 Blood Gas Respiration Rate 20.0 Blood Gas Actual Respiration Rate 29 Blood Gas Modality VENT - AC FiO2 30.0 Blood Gas Inspiratory Time 0.8 Blood Gas Tidal Volume 500.0 Blood Gas Low PEEP Setting 5.0 Blood Gas Critical Value Read Back FOZIA SABA Blood Gas Notified Whom Janell Blood Gas Notified Time 08/16/2018 9:40:50 AM Medications Medication Current Medications Clonidine (Catapres) 0.1 mg Q6H PRN PO ELEVATED BLOOD PRESSURE Last administered on 08/03/18at 20:27; Admin Dose 0.1 MG; Start 06/03/18 at 03:30 Dicyclomine HCl (Bentyl) 20 mg Q8 PO Last administered on 08/16/18at 14:46; Admin Dose 20 MG; Start 06/27/18 at 22:00 Cholestyramine Resin (Questran Light) 4 gm 0600,1200,1800,2300 GTB Last administered on 08/16/18at 17:28; Admin Dose 4 GM; Start 06/27/18 at 18:00 Epoetin Zen-epbx (Retacrit (Non-Esrd)) 10,000 unit MoWeFr@1700 UT Last administered on 08/14/18 18:05; Admin Dose 10,000 UNIT; Start 07/13/18 at 17:00 Albuterol/ Ipratropium (Duoneb) 3 ml Q2H RESP THERAPY PRN HHN WHEEZING Last administered on 07/21/18 23:06; Admin Dose 3 ML; Start 07/21/18 at 22:00 Citric Acid/ Sodium Citrate (Bicitra) 60 ml DAILY PO Last administered on 08/16/18 10:28; Admin Dose 60 ML; Start 07/23/18 at 09:00 Levothyroxine Sodium (Synthroid) 75 mcg DAILY@06 GTB Last administered on 08/16/18 05:34; Admin Dose 75 MCG; Start 07/28/18 at 06:00 Nystatin (Nystatin Powder) 1 applic BID TOP Last administered on 08/16/18 10:29; Admin Dose 1 APPLIC; Start 07/28/18 at 17:30 IV Flush (NS 10 ml) 10 ml Q8 PRN IV IV PROTOCOL; Start 07/28/18 at 19:00 Lorazepam (Ativan) 0.5 mg Q4 PRN IV agitation; Start 08/02/18 at 15:00 Phenytoin (Dilantin) 250 mg Q12@0800,2000 IV Last administered on 08/16/18 10:18; Admin Dose 250 MG; Start 08/05/18 at 09:00 Bumetanide (Bumex) 1 mg BID DIURETICS IV Last administered on 08/16/18 17:29; Admin Dose 1 MG; Start 08/13/18 at 18:00 Ceftolozane/ Tazobactam 0.375 gm/Sodium Chloride 100 ml @ 100 mls/hr Q8 IVPB Last administered on 08/16/18 14:51; Admin Dose 100 MLS/HR; Start 08/13/18 at 22:00; Stop 08/29/18 at 21:59 CELESTINE MURPHY M.D. Aug 16, 2018 21:03
[2018-08-16] MEDS ORDERED: [UNRECOGNIZED DRUG - REMARK] XX SCH (21:30)
[2018-08-17] VITALS (16 sets, daily range): BP systolic 110–131; BP diastolic 63–94; PULSE 78–87; RESP 18–26
[2018-08-17] MEDS: BUMETANIDE 1 MG INJ IV SCH ×2 (06:41→17:44)
[2018-08-17] MEDS: CHOLESTYRAMINE (LIGHT) 4 GM PACKET GTB SCH ×3 (06:41→17:44)
[2018-08-17] MEDS: TAZOBACTAM IVPB SCH ×2 (06:42→14:29)
[2018-08-17] MEDS: CEFTOLOZANE IVPB SCH ×2 (06:42→14:29)
[2018-08-17] MEDS: SOD CHLORIDE 0.9% IVPB SCH ×2 (06:42→14:29)
[2018-08-17] MEDS: LEVOTHYROXINE 75 MCG TAB GTB SCH (06:42)
[2018-08-17] MEDS: DICYCLOMINE 10 MG CAP PO SCH ×2 (06:42→14:29)
[2018-08-17] MEDS ORDERED: METOLAZONE 10 MG TAB PO ONE (08:30)
[2018-08-17] MEDS: BALSAM PERU/CASTOR OIL 60 GM TUBE TOP SCH ×2 (08:35→20:13)
[2018-08-17] MEDS: NYSTATIN 30 GM POWDER BTL TOP SCH ×2 (08:35→20:14)
--- NOTE | 2018-08-17 09:02 | PN ---
DATE: 08/17/2018 SUBJECTIVE: The patient has had minimal urinary output overnight. The patient did receive an amp of bicarbonate therapy. No other events noted. No hemoptysis, hematemesis or hematochezia. OBJECTIVE: VITAL SIGNS: Blood pressure is 117/63, respirations 20, pulse 80, temperature 98.5. HEENT: Head is normocephalic. NECK: Supple. HEART: Regular rate. LUNGS: Show diminished breath sounds at the base. ABDOMEN: Soft, nontender to palpation without rebound or guarding. EXTREMITIES: Negative for clubbing, cyanosis, positive edema, diffuse anasarca. DERMATOLOGIC: No rashes. MUSCULOSKELETAL: No joint effusion. NEUROLOGIC: No change. MEDICATIONS: Reviewed. LABORATORY DATA: Reviewed. IMAGING STUDIES: Reviewed. ASSESSMENT AND PLAN: 1. Nonoliguric acute kidney injury with previous baseline creatinine around 2.0 mg/dL. Etiology of acute kidney injury is secondary to acute tubular necrosis. The patient previously had acute tubular necrosis, was on dialysis for 2 weeks since recovered. However, the patient's renal function now is declining. The patient is diffusely volume overloaded. The patient has had minimal response to diu retic therapy. We will continue to monitor closely. We will discuss with family about the possibili ty of reinitiated hemodialysis. 2. Volume overload. Etiology is secondary to advanced chronic kidney disease, diastolic heart failu re. The patient is status post Bumex drip with minimal response. Continue to monitor. 3. Hypokalemia. Continue to monitor and replete. 4. Metabolic acidosis secondary to acute kidney injury, chronic kidney disease. The patient is curr ently on bicitra. Status post 1 amp of bicarb. Continue to monitor. 5. Anemia. Continue to monitor hemoglobin and hematocrit levels. 6. Mineral bone disorder. Monitor calcium and phosphorus levels. 7. Sepsis. Continue current antibiotic regimen. 8. Dysphagia. Continue tube feeding. 9. Endocarditis. Continue current antibiotic therapy. 10. Encephalopathy, etiology is toxic metabolic. 11. Clostridium difficile. 12. Lower extremity wounds. Dictated By: JEANA BANSAL DO NR/NTS Conf#: [id number] DID#: [id number] CC: QUINTEN UMAÑA MD; ROLAND GIRON MD;*EndCC*
[2018-08-17] MEDS: CITRIC ACID/NA CITRATE 30 ML CUP PO SCH ×2 (10:15→20:11)
--- NOTE | 2018-08-17 10:16 | CONS ---
Assessment/Plan Assessment/Plan Hospital Course (Demo Recall) # sepsis, leukocytosis, SIRS, pulmonary, cardiac - SIRS due to worsening renal failure - recurrent leukocytosis due to bacteremia (below) - s/p septic shock due to pneumonia and C diff colitis - acute on chronic hypoxic respiratory failure, persistent - s/p reintubation 05/12/2018 - s/p re-do trach on 05/29/2018 - recurrent colonization of the anterior neck wound with ESBL+kleb, MRSA, GBS, corynebacteria on 05/06/2018 - h/o pneumonia vs. colonization of the airway by pseudomonas and ESBL+kleb siella - h/o possible, recurrent HCAP due to pseudomonas and ESBL+klebsiella - h/o recurrent HCAP due to MRSA and Enterobacter (culture of tracheal aspirate on 07/16/2017 that [address] [facility]) . Pt took vancomycin and ceftazidime - h/o decannulation prior to admission - h/o tracheostomy on 06/11/2017 - h/o SIRS from UGIB in 2018 - h/o thoracentesis on 07/18/2017, transudative (protein <2, LDH 279) - h/o bleeding from the trach site in 2018 - h/o septic shock due to pneumonia, ARDS, bacteremia, fungemia in 2018 - h/o ARDS in 2018 - h/o smoking - COPD - h/o ILD per medical record - h/o PAF, improved - echodense structure in posterior leafleat region, differential includes calcification vs vegetation per 2D echo 07/15/2018 # GI - s/p possible ileus or enterocolitis on CT abd/pel 06/15/2018-->follow up CT on 07/15/2018 showed no evidence of urolithiasis, obstructive uropathy or diverticulitis; it showed small to moderate ascites-->CT on 08/04/2018 showed colonic obstruction, mild to moderate ascites, diffuse gallbladder wall thickening - C diff colitis, diagnosed on 05/11/2018. Pt took pGT vancomycin (restart 07/09/2018-08/10/2018), IV metronidazole (05/11/2018-05/29/2018; restart 05/30/2018- 06/05/18) - Pt had multiple negative C. diff tests at [facility] and at OSH in the past; none was positive until 05/11/2018 - dysphagia - h/o PEG placement 06/13/2018 - protein calorie malnutrition - h/o coffee ground emesis/UGIB on 12/23/2017 due to deep ulceration of distal esophagus and gastritis on EGD 12/26/2017. No e/o H. pylori - h/o possible appendicitis on CT on 11/22/2017, Pt took ertapenem (11/24/2017- 12/01/2017) - h/o extensive adhesions lower abdominal and pelvis between small bowel to each other and to colon and to abdominal wall, anterior pelvic wall chronic abscess secondary to probably an old perforated diverticulitis, torsion of small bowel around these dense adhesion causing multiple obstructive points - h/o laparoscopic exploration and extensive lysis of adhesions and drainage of anterior pelvic wall abscess 09/16/2017. Cultures were negative, no e/o malignancy. Pt took pip/tazo (09/16/2017-09/26/2017) - h/o EGD and exchange of PEG on 09/01/2017 - h/o partial obstruction mid jejunum in L anterior central pelvis with suggestion of a 3 cm soft tissue mass on CT 08/28/2017 - h/o internal stomal deep ulcer behind the internal bumper, gastritis and esophagitis, Rodriguez's cannot be ruled out, per EGD with biopsy 07/23/2017 - h/o GIB s/p flex sig showed polyp; stool OB negative on 06/29/17 - h/o stool OB positive status - h/o SBO and ileus due to pain meds - h/o mildly elevated CEA # renal/ - s/p recurrent UTI due to pseudomonas (culture on 07/09/2018)-->Garza catheter was replaced on 07/14/2018 - s/p UTI due to MDR, CRE-klebsiella on 06/15/2018. S/p renally dosed amikacin for klebsiella in her urine culture (06/17-06/22/2018) - s/p UTI due to pseudomonas and ESBL+klebsiella on 06/09/2018, Pt took one dose of fosfomycin on 06/10/2018 and cipro 06/12-06/15/2018 - anasarca - started on HD on 05/15/2018, [facility] [place] [facility] Last dialyzed in 05/2018 - recurrent NATHAN on CKD - oliguria - 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 Her strain of CRE was sensitive to colistin, Avycaz, and Vabomere but resistant to Zerbaxa (reported on 05/19/2018) - metabolic acidosis - adrenal insufficiency - h/o vaginal bleed in 2018 - h/o colonization of urinary tract by ESBL+klebsiella, VRE - h/o recurrent, symptomatic UTI due to carbapenem-resistant kleb (MDR strain) per urine culture 10/04/17, 10/09/17, 10/21/2017, P took colistin (10/09/2017- 10/15/2017), fosfomycin for carbapenemase-producing klebsiella and VRE on 10/25/2017 and 10/28/2017 - h/o funguria - h/o urinary retention # bloodstream infections, and infective endocarditis - 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 Pt took IV amikacin (07/09/2018-08/05/2018) and IV colistin (08/05/2018-08/11/2018). repat TTE on 08/12/2018 showed nearly no change - bacteremia due to pseudomonas aeruginosa 07/09/18, 07/10/18, 07/11/18, 07/12/18, 07/13/18, 07/15/18, 07/17/18. This is associated with PICC because the blood culture from PICC and phlebotomy on 07/13/2018 both grew the same bacteria. The tip of PICC that was removed on 07/14/18 also grew the same bacteria in culture. - Some strains of pseudomonas she had were pansensitive while other strains of pseudomonas were resistant to many antibiotics (MDR). - Pt's strain of pseudomonas on 07/09/2018 was resistant to all except for aminoglycosides (amikacin, gentamicin, tobramycin), colistin (IRASEMA=1, reported to be susceptible) and ceftolozane/tazobactam, but resistant to ceftaz/avibactam - Pt's strain of pseudomonas on was resistant to all except for aminoglycosides (amikacin, gentamicin, tobramycin), colistin (IRASEMA=3, no inter pretation) and ceftolozane/tazobactam, but resistant to ceftaz/avibactam 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; Pt declined surgery for MVR per outside medical records; TTE 07/01/17 did not mention any thrombus; s/p voriconazole (05/25/2017-08/01/2017) - h/o bacteremia due to MSSA and proteus s/p ceftriaxone; repeat blood cultures were negative on 06/14/2017 - s/p RUE PICC line placement 07/28/2018 # musculoskeletal and dermatological - dry skin - chronic wound of LLE - h/o infection of wound of LLE - h/o debridement of wound of LLE on 08/06/2017 - h/o recurrent herpes labialis, Pt took acyclovir, valacyclovir - h/o Osler's nodes (eschar) of R toes with erythematous skin; desquamation of the skin and open lacerations on R plantar foot. improved. Probable manifestation of endocarditis. Pt declined MRI on 08/06/2017 - h/o infection of R toes due to pseudomonas. coagulase negative Staph likely a colonizer - h/o intertrigo of the groin, resolved with nystatin powder - h/o scabies (proven by skin scraping), locally crusted lesion over L scapula, s/p permethrin cream and pGT ivermectin on 08/11/2017, 08/12/2017, 08/19/2017. Repeat skin scraping on 08/21/2017 was negative for scabies # psych, neuro - chronic toxic metabolic encephalopathy, progressing - MRI brain on 07/26/2018 showed no acute intracranial pathology - seizure activity per EEG 07/27/18 - on Dilantin - decreased hearing b/l - h/o critical illness polyneuropathy - anxiety/depression, bipolar d/o, seen by Psychiatry in the past - chronic pain syndrome - h/o medical non-compliance: she would refuse her medications, treatment and straight catheterization in 2018 - complete opacification of the bilateral mastoid air cells per MRI Brain on 07/26/2018 # hematological, vascular - chronic anemia requiring blood transfusion intermittently - macrocytic anemia - aneurysmal dilatation of the distal aorta visualized on CT 06/15/2018 - PVD # other - hypothyroidism with elevated TSH - on Synthroid recommendations: - we recommend 6 weeks of antibiotic for probable endocarditis from the first day of negative blood culture, i.e. 07/18/2018 through 08/29/2018. Continue ceftolozane and tazobactam (08/14/2018-), renally dosed. She had MDR pseudomonas and her antibiotic options are limited. She did not tolerate the other ant ibiotics, IV amikacin (07/09/2018-08/05/2018) and IV colistin (08/05/2018- 08/11/2018) - supportive care Management d/w JAYANT Rhodes and with Dr. Doyle Consultation Date/Type/Reason Admit Date/Time May 06, 2018 at 17:38 Initial Consult Date 05/07/18 Type of Consult Infectious Disease Requesting Provider: ROLAND GIRON MD Date/Time of Note DATE: 08/17/18 TIME: 10:14 24 HR Interval Summary Free Text/Dictation S/p Bumex drip yesterday and dose of Metolazone today. Renal fxn still worsening. Research Development Manager is considering HD if trial of diuretics do not work. Subjective hx not possible: pt non-verbal Exam/Review of Systems Exam Vitals Vital Signs Date Temp Pulse Resp B/P (MAP) Pulse Ox O2 O2 Flow FiO2 Time Delivery Rate 08/17/18 98.5 80 26 117/63 100 07:58 (81) 08/17/18 30 07:43 08/16/18 Mechanical 04:33 Ventilator Intake and Output 08/16/18 08/16/18 08/17/18 1515:00 23:00 07:00 IntakeIntake Total 600 ml 680 ml 100 ml OutputOutput Total 350 ml 200 ml 300 ml BalanceBalance 250 ml 480 ml -200 ml Constitutional: non-verbal, frail, obese, other (chronically debilitated) Head: normocephalic, atraumatic Eyes: nl conjunctiva, nl lids ENMT: nl external ears & nose, nl nasal mucosa & septum, other (MM pink and dry) Neck: other (trach is midline and connected to ventilator support) Respiratory: crackles/rales Cardiovascular: regular rate and rhythm, nl pulses, edema (anasarca) Gastrointestinal: soft, surgical scars, other (G-tube c/d/i; abdominal wall edematous/anasarcic) Genitourinary - Female: other (Garza in place) Musculoskeletal: swelling Extremities: edema, pitting pedal edema, other (RUE PICC c/d/i) Neurological: lethargic Skin: ecchymosis, other (nurse notes and photos reviwed in chart. LLE dressing c/d/i. Bilateral heels with foam dressing intact) Results Result Diagram: 08/17/18 0543 08/17/18 0544 Results 24hrs Laboratory Tests Test 08/17/18 05:43 08/17/18 05:44 White Blood Count 6.8 # Red Blood Count 2.62 L Hemoglobin 8.9 L Hematocrit 29.1 L Mean Corpuscular Volume 111.1 H Mean Corpuscular Hemoglobin 34.0 H Mean Corpuscular Hemoglobin Concent 30.6 L Red Cell Distribution Width 23.8 H Platelet Count 226 # Mean Platelet Volume 10.9 H Immature Granulocytes % 0.600 H Neutrophils % 76.9 Lymphocytes % 10.2 L Monocytes % 8.3 Eosinophils % 3.7 Basophils % 0.3 Nucleated Red Blood Cells % 0.7 H Immature Granulocytes # 0.040 H Neutrophils # 5.2 Lymphocytes # 0.7 L Monocytes # 0.6 Eosinophils # 0.3 Basophils # 0.0 Nucleated Red Blood Cells # 0.1 H Sodium Level 141 Potassium Level 4.0 Chloride Level 109 Carbon Dioxide Level 17 L Anion Gap 15 H Blood Urea Nitrogen 118 H Creatinine 3.60 H Est Glomerular Filtrat Rate mL/min Glucose Level 120 Calcium Level 10.3 H Phosphorus Level 3.4 Magnesium Level 1.8 Imaging Imaging CXR 08/14/2018: IMPRESSION: Cardiomegaly with calcified atherosclerosis in the aorta. Central pulmonary vascular congestion and interstitial prominence in both lungs. Patchy infiltrates throughout both lungs with small pleural effusions. Peribronchial cuffing in the central lungs bilaterally. Finding may reflect bronchitis. Medications Medication Current Medications Clonidine (Catapres) 0.1 mg Q6H PRN PO ELEVATED BLOOD PRESSURE Last administered on 08/03/18at 20:27; Admin Dose 0.1 MG; Start 06/03/18 at 03:30 Dicyclomine HCl (Bentyl) 20 mg Q8 PO Last administered on 08/17/18 06:42; Admin Dose 20 MG; Start 06/27/18 at 22:00 Cholestyramine Resin (Questran Light) 4 gm 0600,1200,1800,2300 GTB Last administered on 08/17/18 06:41; Admin Dose 4 GM; Start 06/27/18 at 18:00 Epoetin Zen-epbx (Retacrit (Non-Esrd)) 10,000 unit MoWeFr@1700 SC Last administered on 08/14/18 18:05; Admin Dose 10,000 UNIT; Start 07/13/18 at 17:00 Albuterol/ Ipratropium (Duoneb) 3 ml Q2H RESP THERAPY PRN HHN WHEEZING Last administered on 07/21/18 23:06; Admin Dose 3 ML; Start 07/21/18 at 22:00 Levothyroxine Sodium (Synthroid) 75 mcg DAILY@06 GTB Last administered on 08/17/18 06:42; Admin Dose 75 MCG; Start 07/28/18 at 06:00 Nystatin (Nystatin Powder) 1 applic BID TOP Last administered on 08/17/18at 08:35; Admin Dose 1 APPLIC; Start 07/28/18 at 17:30 IV Flush (NS 10 ml) 10 ml Q8 PRN IV IV PROTOCOL; Start 07/28/18 at 19:00 Lorazepam (Ativan) 0.5 mg Q4 PRN IV agitation; Start 08/02/18 at 15:00 Bumetanide (Bumex) 1 mg BID DIURETICS IV Last administered on 08/17/18 06:41; Admin Dose 1 MG; Start 08/13/18 at 18:00 Ceftolozane/ Tazobactam 0.375 gm/Sodium Chloride 100 ml @ 100 mls/hr Q8 IVPB Last administered on 08/17/18 06:42; Admin Dose 100 MLS/HR; Start 08/13/18 at 22:00; Stop 08/29/18 at 21:59 Miscellaneous Information 1 ea NOTE XX ; Start 08/16/18 at 21:30 Citric Acid/ Sodium Citrate (Bicitra) 60 ml BID PO ; Start 08/17/18 at 09:00 Phenytoin (Dilantin) 250 mg Q12@0800,2000 IV ; Start 08/17/18 at 20:00 LAURA JOSHI NP Aug 17, 2018 10:16
--- NOTE | 2018-08-17 11:13 | CONS ---
Assessment/Plan Assessment/Plan Hospital Course (Demo Recall) Sepsis Acute respiratory failure status post intubation and repeat tracheostomy Acute blood loss anemia History of respiratory failure status post decannulation Preserved ejection fraction echocardiogram 05/10/2018 Paroxysmal atrial fibrillation Acute kidney injury Presumed mitral valve endocarditis Heart rate trend overall improved, blood pressure appears more stable Would restart beta-tin lower dose holding parameters Antibiotics as per infectious disease Vent management as per pulmonary Fluid management and electrolytes as per renal No anticoagulation given recurrent anemia requiring blood transfusions Okay to transfer to [place] from a cardiac perspective at the current time Consultation Date/Type/Reason Admit Date/Time May 06, 2018 at 17:38 Initial Consult Date 05/10/18 Type of Consult Cardiology Requesting Provider: ROLAND GIRON MD Date/Time of Note DATE: 08/17/18 TIME: 11:12 24 HR Interval Summary Free Text/Dictation Patient seen and examined Exam/Review of Systems Vital Signs Vitals Vital Signs Date Temp Pulse Resp B/P (MAP) Pulse Ox O2 O2 Flow FiO2 Time Delivery Rate 08/17/18 30 09:00 08/17/18 98.5 80 26 117/63 100 07:58 (81) 08/16/18 Mechanical 04:33 Ventilator Intake and Output 08/16/18 08/16/18 08/17/18 1515:00 23:00 07:00 IntakeIntake Total 600 ml 680 ml 100 ml OutputOutput Total 350 ml 200 ml 300 ml BalanceBalance 250 ml 480 ml -200 ml Exam Exam Sleeping, no apparent distress Head: normocephalic Respiratory: other (Coarse breath sounds bilaterally, no wheezing) Cardiovascular: regular rate and rhythm (S1-S2 heard) Gastrointestinal: soft, non-tender, bowel sounds Extremities: edema Labs Result Diagram: 08/17/18 0543 08/17/18 0544 Results 24hrs Laboratory Tests Test 08/17/18 05:43 08/17/18 05:44 White Blood Count 6.8 # Red Blood Count 2.62 L Hemoglobin 8.9 L Hematocrit 29.1 L Mean Corpuscular Volume 111.1 H Mean Corpuscular Hemoglobin 34.0 H Mean Corpuscular Hemoglobin Concent 30.6 L Red Cell Distribution Width 23.8 H Platelet Count 226 # Mean Platelet Volume 10.9 H Immature Granulocytes % 0.600 H Neutrophils % 76.9 Lymphocytes % 10.2 L Monocytes % 8.3 Eosinophils % 3.7 Basophils % 0.3 Nucleated Red Blood Cells % 0.7 H Immature Granulocytes # 0.040 H Neutrophils # 5.2 Lymphocytes # 0.7 L Monocytes # 0.6 Eosinophils # 0.3 Basophils # 0.0 Nucleated Red Blood Cells # 0.1 H Sodium Level 141 Potassium Level 4.0 Chloride Level 109 Carbon Dioxide Level 17 L Anion Gap 15 H Blood Urea Nitrogen 118 H Creatinine 3.60 H Est Glomerular Filtrat Rate mL/min Glucose Level 120 Calcium Level 10.3 H Phosphorus Level 3.4 Magnesium Level 1.8 Medications Medications Current Medications Clonidine (Catapres) 0.1 mg Q6H PRN PO ELEVATED BLOOD PRESSURE Last administer ed on 08/03/18 20:27; Admin Dose 0.1 MG; Start 06/03/18 at 03:30 Dicyclomine HCl (Bentyl) 20 mg Q8 PO Last administered on 08/17/18 06:42; Admin Dose 20 MG; Start 06/27/18 at 22:00 Cholestyramine Resin (Questran Light) 4 gm 0600,1200,1800,2300 GTB Last administered on 08/17/18 06:41; Admin Dose 4 GM; Start 06/27/18 at 18:00 Epoetin Zen-epbx (Retacrit (Non-Esrd)) 10,000 unit MoWeFr@1700 SC Last administered on 08/14/18 18:05; Admin Dose 10,000 UNIT; Start 07/13/18 at 17:00 Albuterol/ Ipratropium (Duoneb) 3 ml Q2H RESP THERAPY PRN HHN WHEEZING Last administered on 07/21/18 23:06; Admin Dose 3 ML; Start 07/21/18 at 22:00 Levothyroxine Sodium (Synthroid) 75 mcg DAILY@06 GTB Last administered on 08/17/18 06:42; Admin Dose 75 MCG; Start 07/28/18 at 06:00 Nystatin (Nystatin Powder) 1 applic BID TOP Last administered on 08/17/18 08:35; Admin Dose 1 APPLIC; Start 07/28/18 at 17:30 IV Flush (NS 10 ml) 10 ml Q8 PRN IV IV PROTOCOL; Start 07/28/18 at 19:00 Lorazepam (Ativan) 0.5 mg Q4 PRN IV agitation; Start 08/02/18 at 15:00 Bumetanide (Bumex) 1 mg BID DIURETICS IV Last administered on 08/17/18at 06:41; Admin Dose 1 MG; Start 08/13/18 at 18:00 Ceftolozane/ Tazobactam 0.375 gm/Sodium Chloride 100 ml @ 100 mls/hr Q8 IVPB Last administered on 08/17/18at 06:42; Admin Dose 100 MLS/HR; Start 08/13/18 at 22:00; Stop 08/29/18 at 21:59 Miscellaneous Information 1 ea NOTE XX ; Start 08/16/18 at 21:30 Citric Acid/ Sodium Citrate (Bicitra) 60 ml BID PO Last administered on 08/17/18at 10:15; Admin Dose 60 ML; Start 08/17/18 at 09:00 Phenytoin (Dilantin) 250 mg Q12@0800,2000 IV ; Start 08/17/18 at 20:00 Evangelista Scanlon DO Aug 17, 2018 11:13
[2018-08-17] MEDS: EPOETIN ALFA-EPBX (NON-ESRD 10,000 UNIT/ML VIAL SC SCH (16:46)
[2018-08-17] MEDS ORDERED: PHENYTOIN 250 MG INJ IV SCH (20:00)
[2018-08-17] MEDS ORDERED: METOPROLOL 25 MG TAB PO SCH (21:00)
--- NOTE | 2018-08-17 22:07 | DS ---
Date/Time of Note Date/Time of Note DATE: 08/17/18 TIME: 22:00 Discharge Summary Admission/Discharge Info Admit Date/Time May 06, 2018 at 17:38 Discharge Date/Time Patient Condition: Stable Hx of Present Illness The patient is a 73-year-old female well known to me from previous several admissions. The patient has a complex medical history including history of COPD , respiratory failure, who was recently decannulated at [facility] respiratory unit and was doing reasonably well; however, the patient was noted to be increasingly sleepy as well as had generalized weakness. The patient was less interactive. The patient was sent to [facility] ER where she was noted to have sodium of 122, BUN was 172, creatinine of 3. The patient's baseline sodium back in 01/2019 was 139. BUN was 42, creatinine was 1.3. The patient recently had acute on chronic kidney disease for which she did receive IV fluid. The patient did not have any vomiting, no reported fever or chills. The patient was hypertensive and tachycardic in ER, and received IV fluid bolus. The patient's lactic acid, however, came back as only 0.7. The patient's urine was cloudy and apparently has pyuria. The patient also had a white count of 12.5 with 87% neutrophil. The patient is being admitted for further evaluation and management. The patient initially was lethargic; however, her mental status improved with IV fluid and she is now back to her baseline mental status. The patient is awake, alert, and follows simple commands. No reported abdominal pain. No reported vomiting. No reported recent seizures. There is no significant leg edema. The patient does have generalized weakness and spends most of time in her bed. No reported agitation. The patient, in addition to above, also has history of paroxysmal atrial fibrillation. The patient also had a history of positive gastrointestinal bleed with a high CEA, and had colonoscopy later in 2018. There was no colon mass. The patient did have multiple diverticula. The rest of the history is unremarkable. Hospital Course Pt d/elisabeth to [facility] -Possible acute metabolic encephalopathy. Dr. Mathew is following in neurology consultation. -Seizures, continue Dilantin -Persistent leukocytosis with Pseudomonas bacteremia 2 to PICC line infection, continue antibiotics per ID. Dr. Doyle is following in infection disease consultation. 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 TTE 07/16/18 with notion of echodense structure on the mitral valve, calcification vs vegetation. Repeat TTE on 08/12/2018 showed nearly no change. Dr. Scanlon is following in cardiology consultation. Continue ceftolozane/tazobactam until 08/29. -Hypothyroidism, continue levothyroxine. -MDR Klebsiella urinary tract infection, completed treatment with amikacin. -Atrial fibrillation was rapid ventricular response, patient remains in sinus rhythm continue metoprolol and amiodarone. -S/p septic shock secondary to urinary tract infection, anterior neck soft tissue infection, and C. difficile colitis. -C-diff colitis,resolved. -Acute respiratory failure requiring intubation and ventilatory support. Dr. Lambert is following in pulmonology consultation. -S/p tracheostomy on 05/29/18. -Acute kidney injury on chronic kidney disease. Started on HD this admission with recovery of renal function. Dr. Mckeon is following in nephrology consultation. -Anemia of chronic inflammation, stool for OB is negative, status post blood transfusion. Continue Epogen. -Metabolic acidosis, resolved. -Acute diastolic congestive heart failure. -Paroxysmal atrial fibrillation -COPD -Dysphagia with PEG. -G-tube mild malfunction, changed by GI Dr. Carolina is following in gastroenterology consultation. -Obesity -Critical care myopathy Plan of care discussed with Dr. Eisenberg. Home Meds Reported Medications Zinc Sulfate* (Zinc Sulfate*) 220 Mg Tablet, 220 MG GTB DAILY, TAB START DATE 05/04/18, END DATE 06/03/18 05/06/18 Diclofenac Sodium* (Voltaren* Gel) 1% -100 Gm Gel, 2 GM TOP TID, #1 TUB 05/06/18 Ascorbic Acid (Vitamin C) 500 Mg Tab, 500 MG GTB DAILY, TAB 05/06/18 Quetiapine Fumarate* (Seroquel*) 100 Mg Tablet, 600 MG GTB HS, #30 TAB 05/06/18 Protein Supplement (Promod) 946 Ml Liquid, 30 ML GTB BID 05/06/18 Epoetin Zen (Procrit) 20,000 Unit/1 Ml Vial, 23055 UNIT IJ Q TUE for FOR ANEMIA OF CKD, VIAL HOLD IFHGB IS EQUAL OR GREATER THAN 11 05/06/18 Ondansetron Hcl* (Ondansetron Hcl* Liq) 4 Mg/5 Ml Solution, 4 MG GTB Q6H PRN for NAUSEA AND/OR VOMITING, ML 05/06/18 Multivitamin with Minerals (Multivitamins with Minerals) 1 Each Tablet, 1 EACH GTB QAM, TAB 05/06/18 Metoprolol Tartrate* (Lopressor*) 25 Mg Tab, 25 MG GTB BID, #60 TAB HOLD FOR SBP<110 OR HR<60 05/06/18 Lorazepam* (Ativan* Intensol) 2 Mg/Ml Soln, 0.5 MG IV* Q6H PRN for ANXIETY, #1 BOTTLE START DATE 04/02/18, END DATE 06/01/18 05/06/18 Lidocaine (Lidocaine) 1 Each Adh..patch, 1 EACH TP Q12H 5% 05/06/18 Ipratropium-Albuterol (Ipratropium-Albuterol) 0.5-3 Mg/3 Ml Ampul.neb, 3 ML INHALATION Q6 PRN for BRONCHOSPASM, #30 VIAL 05/06/18 Ipratropium-Albuterol (Ipratropium-Albuterol) 0.5-3 Mg/3 Ml Ampul.neb, 3 ML INHALATION Q2H PRN for BRONCHOSPASM, #30 VIAL 05/06/18 Famotidine* (Famotidine*) 20 Mg Tablet, 20 MG GTB BID, #60 TAB 05/06/18 Valproic Acid* (Depakene*) 250 Mg/5 Ml Udc Syrup, 100 MG GTB QHS, ML 05/06/18 Clonidine Hcl* (Clonidine Hcl*) 0.1 Mg Tab, 0.1 MG GTB Q6 PRN for NEEDED, TAB FOR SBP>160 OR DBP>90 05/06/18 Aspirin* (Aspirin* Chew) 81 Mg Tab.chew, 81 MG GTB DAILY, TAB.CHEW 05/06/18 Primary Care Provider Heladio Eisenberg MD Time spent on discharge: > 30 minutes Pending Labs Laboratory Tests Test 08/17/18 05:43 08/17/18 05:44 White Blood Count 6.8 10^3/ul (4.8-10.8) Red Blood Count 2.62 10^6/ul (4.20-5.40) Hemoglobin 8.9 g/dl (12.0-16.0) Hematocrit 29.1 % (37.0-47.0) Mean Corpuscular Volume 111.1 fl (82.0-101.0) Mean Corpuscular Hemoglobin 34.0 pg (29.0-33.0) Mean Corpuscular 30.6 g/dl (32.0-37.0) Hemoglobin Concent Red Cell Distribution Width 23.8 % (11.5-14.5) Platelet Count 226 10^3/UL (140-415) Mean Platelet Volume 10.9 fl (7.4-10.4) Immature Granulocytes % 0.600 % (0.001-0.429) Neutrophils % 76.9 % (39.0-77.0) Lymphocytes % 10.2 % (15.0-51.0) Monocytes % 8.3 % (0.0-11.0) Eosinophils % 3.7 % (0.0-7.0) Basophils % 0.3 % (0.0-2.0) Nucleated Red Blood Cells % 0.7 /100WBC (0.0-0.0) Immature Granulocytes # 0.040 10^3/ul (0.0-0.031) Neutrophils # 5.2 10^3/ul (1.6-7.5) Lymphocytes # 0.7 10^3/ul (0.8-2.9) Monocytes # 0.6 10^3/ul (0.3-0.9) Eosinophils # 0.3 10^3/ul (0.0-0.5) Basophils # 0.0 10^3/ul (0.0-0.1) Nucleated Red Blood Cells # 0.1 10^3/ul (0.0-0.0) Sodium Level 141 mmol/L (135-144) Potassium Level 4.0 mmol/L (3.5-5.1) Chloride Level 109 mmol/L (97-110) Carbon Dioxide Level 17 mmol/L (21-31) Anion Gap 15 (5-13) Blood Urea Nitrogen 118 mg/dl (7-20) Creatinine 3.60 mg/dl (0.44-1.00) Est Glomerular Filtrat mL/min (>60) Rate mL/min Glucose Level 120 mg/dl (70-220) Calcium Level 10.3 mg/dl (8.4-10.2) Phosphorus Level 3.4 mg/dl (2.5-4.9) Magnesium Level 1.8 mg/dl (1.7-2.5) GRISELDA DENNIS Aug 17, 2018 22:07
== END 2018-08-17 21:15 | disposition short-term general hospital (02) | DRG 4 ==
LOC: E/R 13:48 → ICU 17:38 → EDBEDREQSVC 18:48 → TEL 05-30 23:34
PROVIDERS: ADMIT Internal Medicine; ATTEND Internal Medicine
PROC: 02HV33Z Insertion of Infusion Device into Superior Vena Cava, Percutaneous Approach (ICD-10-PCS; 2018-05-06)
PROC: 30233N1 Transfusion of Nonautologous Red Blood Cells into Peripheral Vein, Percutaneous Approach (ICD-10-PCS; 2018-05-09)
PROC: 0D20XUZ Change Feeding Device in Upper Intestinal Tract, External Approach (ICD-10-PCS; 2018-05-11)
PROC: 5A1955Z Respiratory Ventilation, Greater than 96 Consecutive Hours (ICD-10-PCS; 2018-05-12)
PROC: 0BH17EZ Insertion of Endotracheal Airway into Trachea, Via Natural or Artificial Opening (ICD-10-PCS; 2018-05-12)
PROC: 06PY33Z Removal of Infusion Device from Lower Vein, Percutaneous Approach (ICD-10-PCS; 2018-05-14)
PROC: 06HM33Z Insertion of Infusion Device into Right Femoral Vein, Percutaneous Approach (ICD-10-PCS; 2018-05-14)
PROC: 5A1D70Z Performance of Urinary Filtration, Intermittent, Less than 6 Hours Per Day (ICD-10-PCS; 2018-05-15)
PROC: 5A1D70Z Performance of Urinary Filtration, Intermittent, Less than 6 Hours Per Day (ICD-10-PCS; 2018-05-16)
PROC: 5A1D70Z Performance of Urinary Filtration, Intermittent, Less than 6 Hours Per Day (ICD-10-PCS; 2018-05-18)
PROC: 5A1D70Z Performance of Urinary Filtration, Intermittent, Less than 6 Hours Per Day (ICD-10-PCS; 2018-05-20)
PROC: 5A1D70Z Performance of Urinary Filtration, Intermittent, Less than 6 Hours Per Day (ICD-10-PCS; 2018-05-23)
PROC: 5A1D70Z Performance of Urinary Filtration, Intermittent, Less than 6 Hours Per Day (ICD-10-PCS; 2018-05-25)
PROC: 5A1D70Z Performance of Urinary Filtration, Intermittent, Less than 6 Hours Per Day (ICD-10-PCS; 2018-05-27)
PROC: 5A1D70Z Performance of Urinary Filtration, Intermittent, Less than 6 Hours Per Day (ICD-10-PCS; 2018-05-29)
PROC: 0B110F4 Bypass Trachea to Cutaneous with Tracheostomy Device, Open Approach (ICD-10-PCS; principal; 2018-05-29 11:00)
PROC: 02HV33Z Insertion of Infusion Device into Superior Vena Cava, Percutaneous Approach (ICD-10-PCS; 2018-07-28)
DX: A41.9 Sepsis, unspecified organism (principal); G92 Toxic encephalopathy; N17.0 Acute kidney failure with tubular necrosis; J96.21 Acute and chronic respiratory failure with hypoxia; I50.31 Acute diastolic (congestive) heart failure; R65.21 Severe sepsis with septic shock; E87.2 Acidosis; N39.0 Urinary tract infection, site not specified; A04.72 Enterocolitis due to Clostridium difficile, not specified as recurrent; E87.1 Hypo-osmolality and hyponatremia; I13.0 Hypertensive heart and chronic kidney disease with heart failure and stage 1 through stage 4 chronic kidney disease, or unspecified chronic kidney disease; N17.9 Acute kidney failure, unspecified; K94.23 Gastrostomy malfunction; T82.49XA Other complication of vascular dialysis catheter, initial encounter; D62 Acute posthemorrhagic anemia; B96.89 Other specified bacterial agents as the cause of diseases classified elsewhere; B96.1 Klebsiella pneumoniae [K. pneumoniae] as the cause of diseases classified elsewhere; Z16.12 Extended spectrum beta lactamase (ESBL) resistance; I48.0 Paroxysmal atrial fibrillation; D63.1 Anemia in chronic kidney disease; Z87.891 Personal history of nicotine dependence; J44.9 Chronic obstructive pulmonary disease, unspecified; I48.91 Unspecified atrial fibrillation; R13.10 Dysphagia, unspecified; N18.9 Chronic kidney disease, unspecified; F31.9 Bipolar disorder, unspecified; Z79.82 Long term (current) use of aspirin; E87.6 Hypokalemia; E83.9 Disorder of mineral metabolism, unspecified; R00.0 Tachycardia, unspecified; E66.9 Obesity, unspecified; Z68.31 Body mass index [BMI] 31.0-31.9, adult; Y84.8 Other medical procedures as the cause of abnormal reaction of the patient, or of later complication, without mention of misadventure at the time of the procedure; Y84.1 Kidney dialysis as the cause of abnormal reaction of the patient, or of later complication, without mention of misadventure at the time of the procedure; R33.9 Retention of urine, unspecified; L89.152 Pressure ulcer of sacral region, stage 2; L89.619 Pressure ulcer of right heel, unspecified stage; L89.129 Pressure ulcer of left upper back, unspecified stage; L89.899 Pressure ulcer of other site, unspecified stage
CPT/HCPCS: 31500; 36415; 36430; 36569; 36600; 70450; 70551; 71045; 74018; 74176; 76705; 76775; 76937; 80048; 80053; 80150; 80164; 80185; 81001; 81003; 82043; 82140; 82270; 82607; 82728; 82746; 82803; 82962; 83540; 83605; 83735; 84100; 84155; 84300; 84443; 84484; 85014; 85018; 85025; 85610; 85730; 86706; 86850; 86900; 86901; 86920; 87070; 87075; 87081; 87086; 87340; 87400; 89220; 90935; 92526; 92610; 93005; 93306; 93308; 93970; 93971; 94002; 94003; 94640; 94664; 94770; 95819; 96374; 96375; J0278; J0282; J0692; J0696; J1120; J1165; J1644; J1940; J2060; J2185; J2250; J2270; J2370; J2765; J2916; J2997; J3010; J3370; J3475; J3480; J7030; J7040; J7050; J7060; J7070; P9016; P9047; Q4081; Q5105; Q5106; Q9967